=== PATIENT | female | born 1970 | race African-American/Black ===

== ENCOUNTER 2016-05-20 21:11 | Emergency (ER) | payer OTHER, SELFPAY ==
[~2016-05-20 21:11] MED LIST: /INSU7030; /ONDA4TA PO; /PANT40TA; ACET500C PO; BACITAB3 PO; CIPR500T89 PO; COLA50CA3 PO; DULCOLAX; FERR325T; FLAG500T PO; GLUCOSE TEST; HUMALOG SQ; HUMU70IN SC; HUMULIN; HUMULIN 70/30; IBUP80TA PO; INSULIN 70/30; INSULIN 70/30 SQ; INSUN SC; INSUNSD SC; INSUR SC; LANCMIS; LEVA500T PO; LISI2.5T; MAG400TA PO; MAGNESIUM OXIDE; METO10TA2; METO5TAB2; NEUTRAPHOS OR; NEUTSOL; NICO14PA EXT; NOVO70VL; NOVOINJ14 SC; NOVOLOG INSULIN; NOVOLOG100 MG/ML; OMEP10CASR PO; PERC5TAB PO; PHEN 25; PHENERGAN; PRIL20CA; PRIL40CA; PRIL40CA PO; PROM25TA PO; REGL10TA6 PO; SYRINS1CC SUBQ; TRAM50TA2; VITAPRTA PO; ZOFR8TAB
[2016-05-20 22:17] LABS: BASO % 0.4 % (0.0-1.0); EOS % 0.2 % (0.0-3.0); LARGE UNSTAINED CELL # 0.1 K/mm3 (0.0-0.4); LARGE UNSTAINED CELL % 1.6 % (0.0-4.0); LYMPH # 1.2 K/mm3 (1.5-4.5); LYMPH % 13.3 % (24.0-44.0); MEAN CORPUSCULAR HEMOGLOBIN 28.8 pg (27.0-33.0); MEAN CORPUSCULAR HGB CONC 33.4 g/dl (32.0-36.5); MEAN CORPUSCULAR VOLUME 86.4 fl (80.0-96.0); MONO # 0.7 K/mm3 (0.0-0.8); MONO % 7.5 % (0.0-5.0); NEUTROPHILS # 6.8 K/mm3 (1.8-7.7); PLATELET COUNT, AUTOMATED 350 k/mm3 (150-450); RED CELL DISTRIBUTION WIDTH 15.3 % (11.5-14.5); WHITE BLOOD COUNT 8.8 K/mm3 (4.0-10.0)
[2016-05-20] MEDS ORDERED: KETOROLAC 30 MG/ML VIAL (J1885) As Ordered ONE (22:20)
[2016-05-20] MEDS ORDERED: METOCLOPRAMIDE INJ 10MG/2ML VIAL (J2765) As Ordered ONE (22:20)
[2016-05-20 22:38] LABS: ALBUMIN 4.6 GM/DL (3.2-5.2); ALBUMIN/GLOBULIN RATIO 1.24 (1.00-1.93); BILIRUBIN,DIRECT 0.2 MG/DL (0.0-0.2); BILIRUBIN,TOTAL 0.9 MG/DL (0.2-1.0); CALCIUM LEVEL 10.5 MG/DL (8.5-10.1); CREATININE FOR GFR 1.59 MG/DL (0.55-1.02); GLOMERULAR FILTRATION RATE 45.7 (>58); POTASSIUM SERUM 3.9 MEQ/L (3.5-5.1); TOTAL PROTEIN 8.3 GM/DL (6.4-8.2)
[2016-05-20] MEDS ORDERED: HumuLIN R (REGULAR) INSULIN (NovoLIN R) **100U/ML** PER UNIT As Ordered ONE (23:30)
--- NOTE | 2016-05-21 00:36 | EDDOCDS ---
Physician Documentation [facility] Name: Alivia Parks Age: 45 yrs Sex: Female : 1970 Arrival Date: 05/20/2016 Time: 21:11 Bed 12 Private MD: Unknown, Family Dr Disposition: 05/20/16 23:50 Discharged to Home/Self Care. Impression: Hyperglycemia, unspecified, Vomiting. - Condition is Stable. - Medication Reconciliation, Local Pharmacy Hours, Work Release Form - 1 day form. - Follow up: Private Physician; When: Call to arrange an appointment; Reason: Recheck today's complaints. - Problem is an ongoing problem. - Symptoms have improved. Historical: - Home Meds: 1. Novolin N 100 unit/mL Sub-Q susp 6 unit twice a day 2. novolin R 4 unit twice a day - PMHx: Diabetes - IDDM: controlled; - Social history: No barriers to communication noted, The patient speaks fluent Argentine, Speaks appropriately for age, Smoking status: Patient uses tobacco products, current some day smoker. - Family history: No immediate family members are acutely ill. - : The pt / caregiver states he / she is not on anticoagulants. Unable to Verify Home Med List with the patient / caregiver. - Exposure Risk Screening:: None identified. 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 7 in. (170.18 cm) (R); Pain 7/10; 21:45 Pulse 91 MON; Pulse Ox 100% ; mv5 22:00 Pulse 105 MON; Pulse Ox 76% ; mv5 22:15 Pulse 76 MON; Pulse Ox 94% ; mv5 22:27 Pulse 74 MON; Pulse Ox 97% ; mv5 22:39 BP 123 / 66 (auto/); mv5 22:41 Pulse 88 MON; Pulse Ox 100% ; mv5 22:49 BP 104 / 66 (auto/); mv5 22:49 Pulse 88 MON; Resp 18; Pulse Ox 96% ; mv5 23:04 BP 97 / 64 (auto/); mv5 23:04 Pulse 90 MON; Resp 18; Pulse Ox 97% ; mv5 23:19 BP 108 / 72 (auto/); mv5 23:19 Pulse 82 MON; Resp 16; Pulse Ox 97% ; mv5 23:34 BP 104 / 70 (auto/); mv5 23:34 Pulse 82 MON; Resp 16; Pulse Ox 96% ; mv5 23:49 BP 109 / 74 (auto/); mv5 23:49 Pulse 92 MON; Pulse Ox 98% ; mv5 05/21 00:04 BP 97 / 67 (auto/); mv5 00:04 Pulse 96 MON; Pulse Ox 98% ; mv5 00:10 Temp 98.1(O); jmv 00:19 BP 137 / 83 (auto/); mv5 00:19 Pulse 86 MON; Pulse Ox 99% ; mv5 05/20 21:13 Body Mass Index 22.24 (64.41 kg, 170.18 cm) gr2 MDM: 05/20 21:35 ECG WITH READING ER PHYS+CARDIAG ordered. EDMS 21:37 Fingerstick Blood Sugar Ordered. EDMS 21:48 IV Saline Lock ordered. cs11 21:48 NS 0.9% 1000 ml IV at bolus once ordered. cs11 21:49 CBC with Diff Ordered. EDMS 21:49 MED Profile Ordered. EDMS 21:49 Liver Profile Ordered. EDMS 21:49 Amylase Ordered. EDMS 21:49 Lipase Ordered. EDMS 22:00 ketorolac 30 mg IVP once ordered. cs11 22:00 Metoclopramide 10 mg IV at 40 mg/hr once over 15 mins ordered. cs11 22:27 Fingerstick Blood Sugar Reviewed. cs11 22:27 CBC with Diff Reviewed. cs11 22:47 MED Profile Reviewed. cs11 22:47 Liver Profile Reviewed. cs11 22:47 Lipase Reviewed. cs11 22:47 Amylase Reviewed. cs11 22:48 Insulin Regular Human 8 units IVP once ordered. cs11 22:48 Accucheck ordered. cs11 22:50 Financial registration complete. [facility] 23:13 COUNTS INCLUDE 234 BEDS AT THE [facility] Payment Agreement was scanned into [email or web address] and attached to record. 05/21 00:08 Fingerstick Blood Sugar Ordered. EDMS Point of Care Testing: Blood Glucose: 00:04 Blood Glucose: 141 mg/dL; mv5 Ranges: Administered Medications: 05/20 21:55 Drug: NS 0.9% 1000 ml [sodium chloride 0.9 % intravenous solution] Route: IV; Rate: mv5 bolus; Site: right antecubital; 05/21 00:31 Follow up: IV Status: Completed infusion mv5 05/20 22:25 Drug: ketorolac 30 mg [ketorolac 30 mg/mL (1 mL) injection solution (1 mL)] Route: IVP; mv5 Site: right antecubital; 22:54 Follow up: Response: No Adverse Reaction mv5 22:25 Drug: Metoclopramide 10 mg [metoclopramide 5 mg/mL injection solution] Route: IV; Rate: mv5 40 mg/hr; Infused Over: 15 mins; Site: right antecubital; 22:54 Follow up: Response: No Adverse Reaction; IV Status: Completed infusion mv5 23:34 Drug: Insulin Regular Human 8 units [insulin regular human 100 unit/mL injection mv5 solution (0.08 mL)] {Co-Signature: ld5 (Tonia Moore RN).} Route: IVP; Site: right antecubital; 05/21 00:03 Follow up: Response: No Adverse Reaction mv5 Signatures: Dispatcher [employer] EDBenji Pop, TEDDY RN Fito Escalona DO DO cs11 Danii Mendez, Reg Reg ks16 Minerva Coffey RN RN mv5 Tonia Moore RN ld5 The chart was reviewed and I authenticate all verbal orders and agree with the evaluation and treatment provided.Attachments: 05/20 23:13 COUNTS INCLUDE 234 BEDS AT THE [facility] Payment Agreement ks16 MTDD
--- NOTE | 2016-05-21 00:36 | EDDOCDS ---
Nurse's Notes [facility] Name: Alivia Parks Age: 45 yrs Sex: Female : 1970 Arrival Date: 05/20/2016 Time: 21:11 Bed 12 Private MD: Unknown, Family Dr Diagnosis: Hyperglycemia, unspecified;Vomiting Presentation: 05/20 21:30 Presenting complaint: Patient states: feeling ill for 24 hrs vomiting chills finger cz stick on arrival here 228. Adult Sepsis Screening: The patient does not have new or worsening altered mentation. Patient's respiratory rate is less than 22. Systolic blood pressure is greater than 100. Patient has a qSOFA score of 0- Negative Sepsis Screen. Suicide/Homicide risk assessment- the patient denies having any suicidal and/or homicidal ideations and does not present with any other emotional, behavioral or mental health complaints. 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 Transition of care: patient was not received from another setting of care. 21:30 Acuity: RITU Level 3 cz 21:30 Method Of Arrival: Walkin/Carried/Asstd cz Triage Assessment: 21:32 General: Appears ill, Behavior is cooperative. HIV screening NA for this visit Offered cz previously. 21:49 Pain: Location: top of head, forehead, right mandaen, left mandaen, left frontal area, mv5 left side of forehead, left temporal area, right frontal area, right temporal area and right side of forehead Pain currently is 10 out of 10 on a pain scale. 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 Novolin N 100 unit/mL Sub-Q susp 6 unit twice a day 2. novolin R 4 unit twice a day - PMHx: Diabetes - IDDM: controlled; - Social history: No barriers to communication noted, The patient speaks fluent Khmer, Speaks appropriately for age, Smoking status: Patient uses tobacco products, current some day smoker. - Family history: No immediate family members are acutely ill. - : The pt / caregiver states he / she is not on anticoagulants. Unable to Verify Home Med List with the patient / caregiver. - Exposure Risk Screening:: None identified. Screenin:51 Screening information is obtained from the patient. Fall risk: No risks identified. mv5 Assistance ADL's: requires no assistance with activities of daily living. Abuse/DV Screen: The patient / caregiver reports he/she is: not in a situation that causes fear, pain or injury. Nutritional screening: No deficits noted. Advance Directives: There is no active DNR order. home support is adequate. Assessment: 21:51 General: Appears uncomfortable, well nourished, well groomed, Behavior is cooperative, mv5 pleasant. Pain: Location: top of head, forehead, right mandaen, left mandaen, left frontal area, left side of forehead, left temporal area, right frontal area, right temporal area and right side of forehead Pain currently is 10 out of 10 on a pain scale. Neurological: Level of Consciousness is awake, alert, Oriented to person, place, time, Moves all extremities. Speech is normal, Facial symmetry appears normal. Cardiovascular: Capillary refill < 3 seconds Heart tones S1 S2 present Pulses are all present. Rhythm is sinus tachycardia No ectopy. Respiratory: Airway is patent Respiratory effort is even, unlabored, Respiratory pattern is regular, symmetrical. GI: Abdomen is flat, Bowel sounds present X 4 quads. Abd is soft X 4 quads. Derm: Skin is normal, Skin temperature is warm. 22:26 General: Appears in no apparent distress, to be sleeping. Neurological: Oriented to mv5 person, place, time, Facial symmetry appears normal, Wakes easily to verbal stim.. Cardiovascular: Rhythm is sinus rhythm No ectopy. Respiratory: Airway is patent Respiratory effort is even, unlabored, Respiratory pattern is regular, symmetrical. Derm: Skin is normal, Skin temperature is warm. 23:36 General: Appears in no apparent distress, to be sleeping. Pt wakes easily to verbal mv5 stimuli. Reports improvement of headache, has no other complaints at this time. Meds given as ordered and pt updated re: plan of care.. Pain: Denies pain. Neurological: Level of Consciousness is awake, alert, Oriented to person, place, time, Moves all extremities. Speech is normal. Cardiovascular: Rhythm is sinus rhythm No ectopy. Respiratory: Airway is patent Respiratory effort is even, unlabored, Respiratory pattern is regular, symmetrical. Derm: Skin is normal, Skin temperature is warm. 05/21 00:26 General: Appears in no apparent distress, comfortable, Behavior is cooperative, mv5 pleasant. Pain: Denies pain. Neurological: Level of Consciousness is awake, alert, Oriented to person, place, time. Respiratory: Airway is patent Respiratory effort is even, unlabored, Respiratory pattern is regular, symmetrical. GI: No deficits noted. Derm: Skin is normal, Skin temperature is warm. Vital Signs: 05/20 21:13 BP 121 / 70; Pulse 112; Resp 18 S; Pulse Ox 100% on R/A; Weight 64.41 kg (R); Height 5 gr2 ft. 7 in. (170.18 cm) (R); Pain 7/10; 21:45 Pulse 91 MON; Pulse Ox 100% ; mv5 22:00 Pulse 105 MON; Pulse Ox 76% ; mv5 22:15 Pulse 76 MON; Pulse Ox 94% ; mv5 22:27 Pulse 74 MON; Pulse Ox 97% ; mv5 22:39 BP 123 / 66 (auto/); mv5 22:41 Pulse 88 MON; Pulse Ox 100% ; mv5 22:49 BP 104 / 66 (auto/); mv5 22:49 Pulse 88 MON; Resp 18; Pulse Ox 96% ; mv5 23:04 BP 97 / 64 (auto/); mv5 23:04 Pulse 90 MON; Resp 18; Pulse Ox 97% ; mv5 23:19 BP 108 / 72 (auto/); mv5 23:19 Pulse 82 MON; Resp 16; Pulse Ox 97% ; mv5 23:34 BP 104 / 70 (auto/); mv5 23:34 Pulse 82 MON; Resp 16; Pulse Ox 96% ; mv5 23:49 BP 109 / 74 (auto/); mv5 23:49 Pulse 92 MON; Pulse Ox 98% ; mv5 05/21 00:04 BP 97 / 67 (auto/); mv5 00:04 Pulse 96 MON; Pulse Ox 98% ; mv5 00:10 Temp 98.1(O); jmv 00:19 BP 137 / 83 (auto/); mv5 00:19 Pulse 86 MON; Pulse Ox 99% ; mv5 05/20 21:13 Body Mass Index 22.24 (64.41 kg, 170.18 cm) gr2 Vitals: 05/20 21:13 Log In Time: May 20, 2016 at 21:13. RN notified that patient meets Red Flag gr2 criteria. ED Course: 21:12 Patient visited by Che Abraham. gr2 21:12 Patient moved to Waiting gr2 21:13 Unknown, Family is Private Physician. gr2 21:17 Patient visited by Che Abraham. gr2 21:18 Minerva Coffey,RN is Primary Nurse. apr 21:18 Patient moved to 3 shimon 21:19 Fito Cruz DO is Attending Physician. cs11 21:19 Patient visited by Fito Cruz DO. cs11 21:32 Triage Initiated cz 21:44 Patient visited by Madai Doshi RN. ms18 21:44 EKG done. (by ED staff). Reviewed by Fito Cruz DO. ms18 21:51 The patient / caregiver is instructed regarding the plan of care and ED course. mv5 21:51 Placed in gown. Bed in low position. Call light in reach. Side rails up X2. Cardiac mv5 monitor on. Pulse ox on. NIBP on. 21:51 Inserted saline lock: 18 gauge in right antecubital area and blood collected. The mv5 patient tolerated the procedure well. 21:54 Lipase Sent. mv5 21:54 Amylase Sent. mv5 21:54 Liver Profile Sent. mv5 21:54 MED Profile Sent. mv5 21:55 CBC with Diff Sent. mv5 22:32 Patient moved to 12 apr 22:42 Patient visited by Brian Linares PCA. kb5 23:13 [facility] Payment Agreement was scanned into [employer] and attached to record. ks16 23:36 Patient visited by Minerva Coffey RN. mv5 23:49 Discontinued intact, bleeding controlled, pressure dressing applied, No mv5 redness/swelling at site. No procedures done that require assistance. 05/21 00:10 Patient visited by Jacky Tomas PCA. [email or web address] Administered Medications: 05/20 21:55 Drug: NS 0.9% 1000 ml [sodium chloride 0.9 % intravenous solution] Route: IV; Rate: mv5 bolus; Site: right antecubital; 05/21 00:31 Follow up: IV Status: Completed infusion 5 05/20 22:25 Drug: ketorolac 30 mg [ketorolac 30 mg/mL (1 mL) injection solution (1 mL)] Route: IVP; mv5 Site: right antecubital; 22:54 Follow up: Response: No Adverse Reaction mv5 22:25 Drug: Metoclopramide 10 mg [metoclopramide 5 mg/mL injection solution] Route: IV; Rate: mv5 40 mg/hr; Infused Over: 15 mins; Site: right antecubital; 22:54 Follow up: Response: No Adverse Reaction; IV Status: Completed infusion mv5 23:34 Drug: Insulin Regular Human 8 units [insulin regular human 100 unit/mL injection mv5 solution (0.08 mL)] {Co-Signature: ld5 (Tonia Moore RN).} Route: IVP; Site: right antecubital; 05/21 00:03 Follow up: Response: No Adverse Reaction mv5 Point of Care Testing: Blood Glucose: 00:04 Blood Glucose: 141 mg/dL; mv5 Ranges: Order Results: Lab Order: Fingerstick Blood Sugar; SPEC'M 05/20/16 21:29 Test: BEDSIDE GLUCOSE; Value: 228; Range: 70-105; Abnormal: Above high normal; Units: MG/DL; Status: F Lab Order: CBC with Diff; SPEC'M 05/20/16 21:43 Test: WHITE BLOOD COUNT; Value: 8.8; Range: 4.0-10.0; Units: K/mm3; Status: F Test: RED BLOOD COUNT; Value: 4.34; Range: 4.00-5.40; Units: M/mm3; Status: F Test: HEMOGLOBIN; Value: 12.5; Range: 12.0-16.0; Units: g/dl; Status: F Test: HEMATOCRIT; Value: 37.5; Range: 36.0-47.0; Units: %; Status: F Test: MEAN CORPUSCULAR VOLUME; Value: 86.4; Range: 80.0-96.0; Units: fl; Status: F Test: MEAN CORPUSCULAR HEMOGLOBIN; Value: 28.8; Range: 27.0-33.0; Units: pg; Status: F Test: MEAN CORPUSCULAR HGB CONC; Value: 33.4; Range: 32.0-36.5; Units: g/dl; Status: F Test: RED CELL DISTRIBUTION WIDTH; Value: 15.3; Range: 11.5-14.5; Abnormal: Above high normal; Units: %; Status: F Test: PLATELET COUNT, AUTOMATED; Value: 350; Range: 150-450; Units: k/mm3; Status: F Test: NEUTROPHILS %; Value: 77.0; Range: 36.0-66.0; Abnormal: Above high normal; Units: %; Status: F Test: LYMPH %; Value: 13.3; Range: 24.0-44.0; Abnormal: Below low normal; Units: %; Status: F Test: MONO %; Value: 7.5; Range: 0.0-5.0; Abnormal: Above high normal; Units: %; Status: F Test: EOS %; Value: 0.2; Range: 0.0-3.0; Units: %; Status: F Test: BASO %; Value: 0.4; Range: 0.0-1.0; Units: %; Status: F Test: LARGE UNSTAINED CELL %; Value: 1.6; Range: 0.0-4.0; Units: %; Status: F Test: NEUTROPHILS #; Value: 6.8; Range: 1.8-7.7; Units: K/mm3; Status: F Test: LYMPH #; Value: 1.2; Range: 1.5-4.5; Abnormal: Below low normal; Units: K/mm3; Status: F Test: MONO #; Value: 0.7; Range: 0.0-0.8; Units: K/mm3; Status: F Test: EOS #; Value: 0.0; Range: 0.0-0.50; Units: K/mm3; Status: F Test: BASO #; Value: 0.0; Range: 0.0-0.2; Units: K/mm3; Status: F Test: LARGE UNSTAINED CELL #; Value: 0.1; Range: 0.0-0.4; Units: K/mm3; Status: F Lab Order: MED Profile; SPEC'M 05/20/16 21:43 Test: GLUCOSE, FASTING; Value: 254; Range: 70-105; Abnormal: Above high normal; Units: MG/DL; Status: F Test: BLOOD UREA NITROGEN; Value: 36; Range: 7-18; Abnormal: Above high normal; Units: MG/DL; Status: F Test: CREATININE FOR GFR; Value: 1.59; Range: 0.55-1.02; Abnormal: Above high normal; Units: MG/DL; Status: F Test: GLOMERULAR FILTRATION RATE; Value: 45.7; Range: >58; Abnormal: Below low normal; Status: F Test: SODIUM LEVEL; Value: 140; Range: 136-145; Units: MEQ/L; Status: F Test: POTASSIUM SERUM; Value: 3.9; Range: 3.5-5.1; Units: MEQ/L; Status: F Test: CHLORIDE LEVEL; Value: 100; Range: 98-107; Units: MEQ/L; Status: F Test: CARBON DIOXIDE LEVEL; Value: 27; Range: 21-32; Units: MEQ/L; Status: F Test: ANION GAP; Value: 13; Range: 8-16; Units: MEQ/L; Status: F Test: CALCIUM LEVEL; Value: 10.5; Range: 8.5-10.1; Abnormal: Above high normal; Units: MG/DL; Status: F Test Note: ; Units are mL/min/1.73 m2 Chronic Kidney Disease Staging per NKF: Stage I & II GFR >=60 Normal to Mildly Decreased Stage III GFR 30-59 Moderately Decreased Stage IV GFR 15-29 Severely Decreased Stage V GFR <15 Very Little GFR Left ESRD GFR <15 on 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 OPERATOR ASSISTANT Lab Order: Liver Profile; VARUN'Delilah 05/20/16 21:43 Test: AST/SGOT; Value: 19; Range: 15-37; Units: U/L; Status: F Test: ALT/SGPT; Value: 25; Range: 12-78; Units: U/L; Status: F Test: ALKALINE PHOSPHATASE; Value: 81; Range: 45-117; Units: U/L; Status: F Test: BILIRUBIN,TOTAL; Value: 0.9; Range: 0.2-1.0; Units: MG/DL; Status: F Test: BILIRUBIN,DIRECT; Value: 0.2; Range: 0.0-0.2; Units: MG/DL; Status: F Test: TOTAL PROTEIN; Value: 8.3; Range: 6.4-8.2; Abnormal: Above high normal; Units: GM/DL; Status: F Test: ALBUMIN; Value: 4.6; Range: 3.2-5.2; Units: GM/DL; Status: F Test: ALBUMIN/GLOBULIN RATIO; Value: 1.24; Range: 1.00-1.93; Status: F Lab Order: Amylase; SPEC'M 05/20/16 21:43 Test: AMYLASE; Value: 38; Range: 25-115; Units: U/L; Status: F Lab Order: Lipase; SPEC'M 05/20/16 21:43 Test: LIPASE; Value: 67; Range: 73-393; Abnormal: Below low normal; Units: U/L; Status: F Lab Order: Fingerstick Blood Sugar; SPEC'M 05/21/16 00:02 Test: BEDSIDE GLUCOSE; Value: 141; Range: 70-105; Abnormal: Above high normal; Units: MG/DL; Status: F Outcome: 05/20 23:49 Discharge Assessment: Patient awake, alert and oriented x 3. No cognitive and/or mv5 functional deficits noted. Patient verbalized understanding of disposition instructions. patient administered narcotics - no. The following High Risk Discharge criteria are identified: None. Discharged to home ambulatory. Condition: stable. Discharge instructions given to patient, Demonstrated understanding of Pt was receptive of discharge instructions/ teaching. No special radiology studies were completed. Property sent home with patient. 23:50 Discharge ordered by Provider. cs11 05/21 00:34 Patient left the ED. mv5 Signatures: Briseida Olivia RN RN jan Zecher, Calvin, RN Brian Williamson, PATIENT SERVICES TECHNICIAN PATIENT SERVICES TECHNICIAN kb5 Fito Cruz, DO cs11 Che Abraham gr2 Madai Doshi RN RN ms18 Danii Mendez, Reg Reg ks16 Jacky Tomas, PATIENT SERVICES TECHNICIAN PATIENT SERVICES TECHNICIAN Minerva Chandra RN RN mv5 Tonia Moore RN ld5 MTDD
--- NOTE | 2016-05-21 08:56 | ECGEPIP ---
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
[2016-05-21] MEDS ORDERED: NOVOINJ14 SC (15:53)
--- NOTE | 2016-05-23 01:36 | EDDOCDS ---
Physician Documentation [facility] Name: Alivia Parks Age: 45 yrs Sex: Female : 1970 Arrival Date: 05/20/2016 Time: 21:11 Bed 12 Private MD: Unknown, Family Dr Disposition: 05/20/16 23:50 Discharged to Home/Self Care. Impression: Hyperglycemia, unspecified, Vomiting. - Condition is Stable. - Medication Reconciliation, Local Pharmacy Hours, Work Release Form - 1 day form. - Follow up: Private Physician; When: Call to arrange an appointment; Reason: Recheck today's complaints. - Problem is an ongoing problem. - Symptoms have improved. Historical: - Home Meds: 1. Novolin N 100 unit/mL Sub-Q susp 6 unit twice a day 2. novolin R 4 unit twice a day - PMHx: Diabetes - IDDM: controlled; - Social history: No barriers to communication noted, The patient speaks fluent [place], Speaks appropriately for age, Smoking status: Patient uses tobacco products, current some day smoker. - Family history: No immediate family members are acutely ill. - : The pt / caregiver states he / she is not on anticoagulants. Unable to Verify Home Med List with the patient / caregiver. - Exposure Risk Screening:: None identified. 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 7 in. (170.18 cm) (R); Pain 7/10; 21:45 Pulse 91 MON; Pulse Ox 100% ; mv5 22:00 Pulse 105 MON; Pulse Ox 76% ; mv5 22:15 Pulse 76 MON; Pulse Ox 94% ; mv5 22:27 Pulse 74 MON; Pulse Ox 97% ; mv5 22:39 BP 123 / 66 (auto/); mv5 22:41 Pulse 88 MON; Pulse Ox 100% ; mv5 22:49 BP 104 / 66 (auto/); mv5 22:49 Pulse 88 MON; Resp 18; Pulse Ox 96% ; mv5 23:04 BP 97 / 64 (auto/); mv5 23:04 Pulse 90 MON; Resp 18; Pulse Ox 97% ; mv5 23:19 BP 108 / 72 (auto/); mv5 23:19 Pulse 82 MON; Resp 16; Pulse Ox 97% ; mv5 23:34 BP 104 / 70 (auto/); mv5 23:34 Pulse 82 MON; Resp 16; Pulse Ox 96% ; mv5 23:49 BP 109 / 74 (auto/); mv5 23:49 Pulse 92 MON; Pulse Ox 98% ; mv5 05/21 00:04 BP 97 / 67 (auto/); mv5 00:04 Pulse 96 MON; Pulse Ox 98% ; mv5 00:10 Temp 98.1(O); jmv 00:19 BP 137 / 83 (auto/); mv5 00:19 Pulse 86 MON; Pulse Ox 99% ; mv5 05/20 21:13 Body Mass Index 22.24 (64.41 kg, 170.18 cm) gr2 MDM: 05/20 21:35 ECG WITH READING ER PHYS+CARDIAG ordered. EDMS 21:37 Fingerstick Blood Sugar Ordered. EDMS 21:48 IV Saline Lock ordered. cs11 21:48 NS 0.9% 1000 ml IV at bolus once ordered. cs11 21:49 CBC with Diff Ordered. EDMS 21:49 MED Profile Ordered. EDMS 21:49 Liver Profile Ordered. EDMS 21:49 Amylase Ordered. EDMS 21:49 Lipase Ordered. EDMS 22:00 ketorolac 30 mg IVP once ordered. cs11 22:00 Metoclopramide 10 mg IV at 40 mg/hr once over 15 mins ordered. cs11 22:27 Fingerstick Blood Sugar Reviewed. cs11 22:27 CBC with Diff Reviewed. cs11 22:47 MED Profile Reviewed. cs11 22:47 Liver Profile Reviewed. cs11 22:47 Lipase Reviewed. cs11 22:47 Amylase Reviewed. cs11 22:48 Insulin Regular Human 8 units IVP once ordered. cs11 22:48 Accucheck ordered. cs11 22:50 Financial registration complete. [facility] 23:13 [facility] Payment Agreement was scanned into [employer] and attached to record. [email or web address] 05/21 00:08 Fingerstick Blood Sugar Ordered. EDMS 09:38 T-Sheet-- Draft Copy was scanned into [employer] and attached to record. gb 09:38 ECG/EKG was scanned into [employer] and attached to record. gb Point of Care Testing: Blood Glucose: 00:04 Blood Glucose: 141 mg/dL; mv5 Ranges: Administered Medications: 05/20 21:55 Drug: NS 0.9% 1000 ml [sodium chloride 0.9 % intravenous solution] Route: IV; Rate: mv5 bolus; Site: right antecubital; 05/21 00:31 Follow up: IV Status: Completed infusion mv5 05/20 22:25 Drug: ketorolac 30 mg [ketorolac 30 mg/mL (1 mL) injection solution (1 mL)] Route: IVP; mv5 Site: right antecubital; 22:54 Follow up: Response: No Adverse Reaction mv5 22:25 Drug: Metoclopramide 10 mg [metoclopramide 5 mg/mL injection solution] Route: IV; Rate: mv5 40 mg/hr; Infused Over: 15 mins; Site: right antecubital; 22:54 Follow up: Response: No Adverse Reaction; IV Status: Completed infusion mv5 23:34 Drug: Insulin Regular Human 8 units [insulin regular human 100 unit/mL injection mv5 solution (0.08 mL)] {Co-Signature: [email or web address] (Tonia Moore RN).} Route: IVP; Site: right antecubital; 05/21 00:03 Follow up: Response: No Adverse Reaction mv5 Signatures: Dispatcher [employer] Benji Hillman, RN RN cz Chayito Montalvo, Reg Reg gb Fito Cruz, DO DO cs11 Danii Mendez, Reg Reg ks16 Minerva Coffey RN RN mv5 Tonia Moore RN ld5 The chart was reviewed and I authenticate all verbal orders and agree with the evaluation and treatment provided.Attachments: 05/20 23:13 [facility] Payment Agreement [email or web address] 05/21 09:38 T-Sheet-- Draft Copy 09:38 ECG/EKG Chart Complete MTDD
--- NOTE | 2016-05-23 01:36 | EDDOCDS ---
[facility] Name: Alivia Parks Age: 45 yrs Sex: Female : 1970 Arrival Date: 05/20/2016 Time: 21:11 Bed 12 Private MD: Unknown, Family Dr Disposition: 05/20/16 23:50 Discharged to Home/Self Care. Impression: Hyperglycemia, unspecified, Vomiting. - Condition is Stable. - Medication Reconciliation, Local Pharmacy Hours, Work Release Form - 1 day form. - Follow up: Private Physician; When: Call to arrange an appointment; Reason: Recheck today's complaints. - Problem is an ongoing problem. - Symptoms have improved. Historical: - Home Meds: 1. Novolin N 100 unit/mL Sub-Q susp 6 unit twice a day 2. novolin R 4 unit twice a day - PMHx: Diabetes - IDDM: controlled; - Social history: No barriers to communication noted, The patient speaks fluent Norwegian, Speaks appropriately for age, Smoking status: Patient uses tobacco products, current some day smoker. - Family history: No immediate family members are acutely ill. - : The pt / caregiver states he / she is not on anticoagulants. Unable to Verify Home Med List with the patient / caregiver. - Exposure Risk Screening:: None identified. 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 7 in. (170.18 cm) (R); Pain 7/10; 21:45 Pulse 91 MON; Pulse Ox 100% ; mv5 22:00 Pulse 105 MON; Pulse Ox 76% ; mv5 22:15 Pulse 76 MON; Pulse Ox 94% ; mv5 22:27 Pulse 74 MON; Pulse Ox 97% ; mv5 22:39 BP 123 / 66 (auto/); mv5 22:41 Pulse 88 MON; Pulse Ox 100% ; mv5 22:49 BP 104 / 66 (auto/); mv5 22:49 Pulse 88 MON; Resp 18; Pulse Ox 96% ; mv5 23:04 BP 97 / 64 (auto/); mv5 23:04 Pulse 90 MON; Resp 18; Pulse Ox 97% ; mv5 23:19 BP 108 / 72 (auto/); mv5 23:19 Pulse 82 MON; Resp 16; Pulse Ox 97% ; mv5 23:34 BP 104 / 70 (auto/); mv5 23:34 Pulse 82 MON; Resp 16; Pulse Ox 96% ; mv5 23:49 BP 109 / 74 (auto/); mv5 23:49 Pulse 92 MON; Pulse Ox 98% ; mv5 05/21 00:04 BP 97 / 67 (auto/); mv5 00:04 Pulse 96 MON; Pulse Ox 98% ; mv5 00:10 Temp 98.1(O); jmv 00:19 BP 137 / 83 (auto/); mv5 00:19 Pulse 86 MON; Pulse Ox 99% ; mv5 05/20 21:13 Body Mass Index 22.24 (64.41 kg, 170.18 cm) gr2 MDM: 05/20 21:35 ECG WITH READING ER PHYS+CARDIAG ordered. EDMS 21:37 Fingerstick Blood Sugar Ordered. EDMS 21:48 IV Saline Lock ordered. cs11 21:48 NS 0.9% 1000 ml IV at bolus once ordered. cs11 21:49 CBC with Diff Ordered. EDMS 21:49 MED Profile Ordered. EDMS 21:49 Liver Profile Ordered. EDMS 21:49 Amylase Ordered. EDMS 21:49 Lipase Ordered. EDMS 22:00 ketorolac 30 mg IVP once ordered. cs11 22:00 Metoclopramide 10 mg IV at 40 mg/hr once over 15 mins ordered. cs11 22:27 Fingerstick Blood Sugar Reviewed. cs11 22:27 CBC with Diff Reviewed. cs11 22:47 MED Profile Reviewed. cs11 22:47 Liver Profile Reviewed. cs11 22:47 Lipase Reviewed. cs11 22:47 Amylase Reviewed. cs11 22:48 Insulin Regular Human 8 units IVP once ordered. cs11 22:48 Accucheck ordered. cs11 22:50 Financial registration complete. [facility] 23:13 [facility] Payment Agreement was scanned into [email or web address] and attached to record. ks16 05/21 00:08 Fingerstick Blood Sugar Ordered. EDMS 09:38 T-Sheet-- Draft Copy was scanned into [email or web address] and attached to record. gb 09:38 ECG/EKG was scanned into [employer] and attached to record. gb Point of Care Testing: Blood Glucose: 00:04 Blood Glucose: 141 mg/dL; mv5 Ranges: Administered Medications: 05/20 21:55 Drug: NS 0.9% 1000 ml [sodium chloride 0.9 % intravenous solution] Route: IV; Rate: mv5 bolus; Site: right antecubital; 05/21 00:31 Follow up: IV Status: Completed infusion mv5 05/20 22:25 Drug: ketorolac 30 mg [ketorolac 30 mg/mL (1 mL) injection solution (1 mL)] Route: IVP; mv5 Site: right antecubital; 22:54 Follow up: Response: No Adverse Reaction mv5 22:25 Drug: Metoclopramide 10 mg [metoclopramide 5 mg/mL injection solution] Route: IV; Rate: mv5 40 mg/hr; Infused Over: 15 mins; Site: right antecubital; 22:54 Follow up: Response: No Adverse Reaction; IV Status: Completed infusion mv5 23:34 Drug: Insulin Regular Human 8 units [insulin regular human 100 unit/mL injection mv5 solution (0.08 mL)] {Co-Signature: ld5 (Tonia Moore RN).} Route: IVP; Site: right antecubital; 05/21 00:03 Follow up: Response: No Adverse Reaction mv5 Signatures: Dispatcher [employer] Benji Hillman, RN RN cz Chayito Montalvo, Reg Reg gb Fito Cruz, DO DO cs11 Danii Mendez, Reg Reg ks16 Minerva Coffey RN RN mv5 Tonia Moore RN ld5 The chart was reviewed and I authenticate all verbal orders and agree with the evaluation and treatment provided.Attachments: 05/20 23:13 [facility] Payment Agreement [email or web address] 05/21 09:38 T-Sheet-- Draft Copy 09:38 ECG/EKG Chart Complete MTDD
--- NOTE | 2016-05-23 01:36 | EDDOCDS ---
Nurse's Notes [facility] Name: Alivia Parks Age: 45 yrs Sex: Female : 1970 Arrival Date: 05/20/2016 Time: 21:11 Bed 12 Private MD: Unknown, Family Dr Diagnosis: Hyperglycemia, unspecified;Vomiting Presentation: 05/20 21:30 Presenting complaint: Patient states: feeling ill for 24 hrs vomiting chills finger cz stick on arrival here 228. Adult Sepsis Screening: The patient does not have new or worsening altered mentation. Patient's respiratory rate is less than 22. Systolic blood pressure is greater than 100. Patient has a qSOFA score of 0- Negative Sepsis Screen. Suicide/Homicide risk assessment- the patient denies having any suicidal and/or homicidal ideations and does not present with any other emotional, behavioral or mental health complaints. Status: Patient is not a lead customer service representative or dependent. Transition of care: patient was not received from another setting of care. 21:30 Acuity: RITU Level 3 cz 21:30 Method Of Arrival: Walkin/Carried/Asstd cz Triage Assessment: 21:32 General: Appears ill, Behavior is cooperative. HIV screening NA for this visit Offered cz previously. 21:49 Pain: Location: top of head, forehead, right yazdanism, left yazdanism, left frontal area, mv5 left side of forehead, left temporal area, right frontal area, right temporal area and right side of forehead Pain currently is 10 out of 10 on a pain scale. 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 Novolin N 100 unit/mL Sub-Q susp 6 unit twice a day 2. novolin R 4 unit twice a day - PMHx: Diabetes - IDDM: controlled; - Social history: No barriers to communication noted, The patient speaks fluent Kinyarwanda, Speaks appropriately for age, Smoking status: Patient uses tobacco products, current some day smoker. - Family history: No immediate family members are acutely ill. - : The pt / caregiver states he / she is not on anticoagulants. Unable to Verify Home Med List with the patient / caregiver. - Exposure Risk Screening:: None identified. Screenin:51 Screening information is obtained from the patient. Fall risk: No risks identified. mv5 Assistance ADL's: requires no assistance with activities of daily living. Abuse/DV Screen: The patient / caregiver reports he/she is: not in a situation that causes fear, pain or injury. Nutritional screening: No deficits noted. Advance Directives: There is no active DNR order. home support is adequate. Assessment: 21:51 General: Appears uncomfortable, well nourished, well groomed, Behavior is cooperative, mv5 pleasant. Pain: Location: top of head, forehead, right yazdanism, left yazdanism, left frontal area, left side of forehead, left temporal area, right frontal area, right temporal area and right side of forehead Pain currently is 10 out of 10 on a pain scale. Neurological: Level of Consciousness is awake, alert, Oriented to person, place, time, Moves all extremities. Speech is normal, Facial symmetry appears normal. Cardiovascular: Capillary refill < 3 seconds Heart tones S1 S2 present Pulses are all present. Rhythm is sinus tachycardia No ectopy. Respiratory: Airway is patent Respiratory effort is even, unlabored, Respiratory pattern is regular, symmetrical. GI: Abdomen is flat, Bowel sounds present X 4 quads. Abd is soft X 4 quads. Derm: Skin is normal, Skin temperature is warm. 22:26 General: Appears in no apparent distress, to be sleeping. Neurological: Oriented to mv5 person, place, time, Facial symmetry appears normal, Wakes easily to verbal stim.. Cardiovascular: Rhythm is sinus rhythm No ectopy. Respiratory: Airway is patent Respiratory effort is even, unlabored, Respiratory pattern is regular, symmetrical. Derm: Skin is normal, Skin temperature is warm. 23:36 General: Appears in no apparent distress, to be sleeping. Pt wakes easily to verbal mv5 stimuli. Reports improvement of headache, has no other complaints at this time. Meds given as ordered and pt updated re: plan of care.. Pain: Denies pain. Neurological: Level of Consciousness is awake, alert, Oriented to person, place, time, Moves all extremities. Speech is normal. Cardiovascular: Rhythm is sinus rhythm No ectopy. Respiratory: Airway is patent Respiratory effort is even, unlabored, Respiratory pattern is regular, symmetrical. Derm: Skin is normal, Skin temperature is warm. 05/21 00:26 General: Appears in no apparent distress, comfortable, Behavior is cooperative, mv5 pleasant. Pain: Denies pain. Neurological: Level of Consciousness is awake, alert, Oriented to person, place, time. Respiratory: Airway is patent Respiratory effort is even, unlabored, Respiratory pattern is regular, symmetrical. GI: No deficits noted. Derm: Skin is normal, Skin temperature is warm. Vital Signs: 05/20 21:13 BP 121 / 70; Pulse 112; Resp 18 S; Pulse Ox 100% on R/A; Weight 64.41 kg (R); Height 5 gr2 ft. 7 in. (170.18 cm) (R); Pain 7/10; 21:45 Pulse 91 MON; Pulse Ox 100% ; mv5 22:00 Pulse 105 MON; Pulse Ox 76% ; mv5 22:15 Pulse 76 MON; Pulse Ox 94% ; mv5 22:27 Pulse 74 MON; Pulse Ox 97% ; mv5 22:39 BP 123 / 66 (auto/); mv5 22:41 Pulse 88 MON; Pulse Ox 100% ; mv5 22:49 BP 104 / 66 (auto/); mv5 22:49 Pulse 88 MON; Resp 18; Pulse Ox 96% ; mv5 23:04 BP 97 / 64 (auto/); mv5 23:04 Pulse 90 MON; Resp 18; Pulse Ox 97% ; mv5 23:19 BP 108 / 72 (auto/); mv5 23:19 Pulse 82 MON; Resp 16; Pulse Ox 97% ; mv5 23:34 BP 104 / 70 (auto/); mv5 23:34 Pulse 82 MON; Resp 16; Pulse Ox 96% ; mv5 23:49 BP 109 / 74 (auto/); mv5 23:49 Pulse 92 MON; Pulse Ox 98% ; mv5 05/21 00:04 BP 97 / 67 (auto/); mv5 00:04 Pulse 96 MON; Pulse Ox 98% ; mv5 00:10 Temp 98.1(O); jmv 00:19 BP 137 / 83 (auto/); mv5 00:19 Pulse 86 MON; Pulse Ox 99% ; mv5 05/20 21:13 Body Mass Index 22.24 (64.41 kg, 170.18 cm) gr2 Vitals: 05/20 21:13 Log In Time: May 20, 2016 at 21:13. RN notified that patient meets Red Flag gr2 criteria. ED Course: 21:12 Patient visited by Che Abraham. gr2 21:12 Patient moved to Waiting gr2 21:13 Unknown, Family is Private Physician. gr2 21:17 Patient visited by Che Abraham. gr2 21:18 Minerva Coffey,RN is Primary Nurse. apr 21:18 Patient moved to 3 shimon 21:19 Kiana Zamarripa DO is Attending Physician. cs11 21:19 Patient visited by Kiana Zamarripa DO. cs11 21:32 Triage Initiated cz 21:44 Patient visited by Madai Doshi RN. ms18 21:44 EKG done. (by ED staff). Reviewed by Kiana Zamarripa DO. ms18 21:51 The patient / caregiver is instructed regarding the plan of care and ED course. mv5 21:51 Placed in gown. Bed in low position. Call light in reach. Side rails up X2. Cardiac mv5 monitor on. Pulse ox on. NIBP on. 21:51 Inserted saline lock: 18 gauge in right antecubital area and blood collected. The mv5 patient tolerated the procedure well. 21:54 Lipase Sent. mv5 21:54 Amylase Sent. mv5 21:54 Liver Profile Sent. mv5 21:54 MED Profile Sent. mv5 21:55 CBC with Diff Sent. mv5 22:32 Patient moved to 12 apr 22:42 Patient visited by Brian Linares PCA. kb5 23:13 [facility] Payment Agreement was scanned into [employer] and attached to record. ks16 23:36 Patient visited by Minerva Coffey,TEDDY. mv5 23:49 Discontinued intact, bleeding controlled, pressure dressing applied, No mv5 redness/swelling at site. No procedures done that require assistance. 05/21 00:10 Patient visited by Jcaky Tomas PCA. jmv 09:29 EKG-ADULT Returned. EDMS 09:38 T-Sheet-- Draft Copy was scanned into [employer] and attached to record. gb 09:38 ECG/EKG was scanned into [employer] and attached to record. gb Administered Medications: 05/20 21:55 Drug: NS 0.9% 1000 ml [sodium chloride 0.9 % intravenous solution] Route: IV; Rate: mv5 bolus; Site: right antecubital; 05/21 00:31 Follow up: IV Status: Completed infusion mv5 05/20 22:25 Drug: ketorolac 30 mg [ketorolac 30 mg/mL (1 mL) injection solution (1 mL)] Route: IVP; mv5 Site: right antecubital; 22:54 Follow up: Response: No Adverse Reaction mv5 22:25 Drug: Metoclopramide 10 mg [metoclopramide 5 mg/mL injection solution] Route: IV; Rate: mv5 40 mg/hr; Infused Over: 15 mins; Site: right antecubital; 22:54 Follow up: Response: No Adverse Reaction; IV Status: Completed infusion mv5 23:34 Drug: Insulin Regular Human 8 units [insulin regular human 100 unit/mL injection mv5 solution (0.08 mL)] {Co-Signature: ld5 (Tonia Moore RN).} Route: IVP; Site: right antecubital; 05/21 00:03 Follow up: Response: No Adverse Reaction mv5 Point of Care Testing: Blood Glucose: 00:04 Blood Glucose: 141 mg/dL; mv5 Ranges: Order Results: Lab Order: Fingerstick Blood Sugar; SPEC'M 05/20/16 21:29 Test: BEDSIDE GLUCOSE; Value: 228; Range: 70-105; Abnormal: Above high normal; Units: MG/DL; Status: F Lab Order: CBC with Diff; SPEC'M 05/20/16 21:43 Test: WHITE BLOOD COUNT; Value: 8.8; Range: 4.0-10.0; Units: K/mm3; Status: F Test: RED BLOOD COUNT; Value: 4.34; Range: 4.00-5.40; Units: M/mm3; Status: F Test: HEMOGLOBIN; Value: 12.5; Range: 12.0-16.0; Units: g/dl; Status: F Test: HEMATOCRIT; Value: 37.5; Range: 36.0-47.0; Units: %; Status: F Test: MEAN CORPUSCULAR VOLUME; Value: 86.4; Range: 80.0-96.0; Units: fl; Status: F Test: MEAN CORPUSCULAR HEMOGLOBIN; Value: 28.8; Range: 27.0-33.0; Units: pg; Status: F Test: MEAN CORPUSCULAR HGB CONC; Value: 33.4; Range: 32.0-36.5; Units: g/dl; Status: F Test: RED CELL DISTRIBUTION WIDTH; Value: 15.3; Range: 11.5-14.5; Abnormal: Above high normal; Units: %; Status: F Test: PLATELET COUNT, AUTOMATED; Value: 350; Range: 150-450; Units: k/mm3; Status: F Test: NEUTROPHILS %; Value: 77.0; Range: 36.0-66.0; Abnormal: Above high normal; Units: %; Status: F Test: LYMPH %; Value: 13.3; Range: 24.0-44.0; Abnormal: Below low normal; Units: %; Status: F Test: MONO %; Value: 7.5; Range: 0.0-5.0; Abnormal: Above high normal; Units: %; Status: F Test: EOS %; Value: 0.2; Range: 0.0-3.0; Units: %; Status: F Test: BASO %; Value: 0.4; Range: 0.0-1.0; Units: %; Status: F Test: LARGE UNSTAINED CELL %; Value: 1.6; Range: 0.0-4.0; Units: %; Status: F Test: NEUTROPHILS #; Value: 6.8; Range: 1.8-7.7; Units: K/mm3; Status: F Test: LYMPH #; Value: 1.2; Range: 1.5-4.5; Abnormal: Below low normal; Units: K/mm3; Status: F Test: MONO #; Value: 0.7; Range: 0.0-0.8; Units: K/mm3; Status: F Test: EOS #; Value: 0.0; Range: 0.0-0.50; Units: K/mm3; Status: F Test: BASO #; Value: 0.0; Range: 0.0-0.2; Units: K/mm3; Status: F Test: LARGE UNSTAINED CELL #; Value: 0.1; Range: 0.0-0.4; Units: K/mm3; Status: F Lab Order: MED Profile; SPEC'M 05/20/16 21:43 Test: GLUCOSE, FASTING; Value: 254; Range: 70-105; Abnormal: Above high normal; Units: MG/DL; Status: F Test: BLOOD UREA NITROGEN; Value: 36; Range: 7-18; Abnormal: Above high normal; Units: MG/DL; Status: F Test: CREATININE FOR GFR; Value: 1.59; Range: 0.55-1.02; Abnormal: Above high normal; Units: MG/DL; Status: F Test: GLOMERULAR FILTRATION RATE; Value: 45.7; Range: >58; Abnormal: Below low normal; Status: F Test: SODIUM LEVEL; Value: 140; Range: 136-145; Units: MEQ/L; Status: F Test: POTASSIUM SERUM; Value: 3.9; Range: 3.5-5.1; Units: MEQ/L; Status: F Test: CHLORIDE LEVEL; Value: 100; Range: 98-107; Units: MEQ/L; Status: F Test: CARBON DIOXIDE LEVEL; Value: 27; Range: 21-32; Units: MEQ/L; Status: F Test: ANION GAP; Value: 13; Range: 8-16; Units: MEQ/L; Status: F Test: CALCIUM LEVEL; Value: 10.5; Range: 8.5-10.1; Abnormal: Above high normal; Units: MG/DL; Status: F Test Note: ; Units are mL/min/1.73 m2 Chronic Kidney Disease Staging per NKF: Stage I & II GFR >=60 Normal to Mildly Decreased Stage III GFR 30-59 Moderately Decreased Stage IV GFR 15-29 Severely Decreased Stage V GFR <15 Very Little GFR Left ESRD GFR <15 on MUSIC WRITER Lab Order: Liver Profile; [facility] 05/20/16 21:43 Test: AST/SGOT; Value: 19; Range: 15-37; Units: U/L; Status: F Test: ALT/SGPT; Value: 25; Range: 12-78; Units: U/L; Status: F Test: ALKALINE PHOSPHATASE; Value: 81; Range: 45-117; Units: U/L; Status: F Test: BILIRUBIN,TOTAL; Value: 0.9; Range: 0.2-1.0; Units: MG/DL; Status: F Test: BILIRUBIN,DIRECT; Value: 0.2; Range: 0.0-0.2; Units: MG/DL; Status: F Test: TOTAL PROTEIN; Value: 8.3; Range: 6.4-8.2; Abnormal: Above high normal; Units: GM/DL; Status: F Test: ALBUMIN; Value: 4.6; Range: 3.2-5.2; Units: GM/DL; Status: F Test: ALBUMIN/GLOBULIN RATIO; Value: 1.24; Range: 1.00-1.93; Status: F Lab Order: Amylase; SPEC'M 05/20/16 21:43 Test: AMYLASE; Value: 38; Range: 25-115; Units: U/L; Status: F Lab Order: Lipase; SPEC'M 05/20/16 21:43 Test: LIPASE; Value: 67; Range: 73-393; Abnormal: Below low normal; Units: U/L; Status: F Lab Order: Fingerstick Blood Sugar; SPEC'M 05/21/16 00:02 Test: BEDSIDE GLUCOSE; Value: 141; Range: 70-105; Abnormal: Above high normal; Units: MG/DL; Status: F Radiology Order: EKG-ADULT Test: EKG-ADULT REASON FOR EXAMINATION: LOW BLOOD SUGAR; Stationary ECG Study; [facility] ED; ; Test Date: 2016-05-20; Pat Name: [facility] Department:; Room: -; 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 No cognitive and/or mv5 functional deficits noted. Patient verbalized understanding of disposition instructions. patient administered narcotics - no. The following High Risk Discharge criteria are identified: None. Discharged to home ambulatory. Condition: stable. Discharge instructions given to patient, Demonstrated understanding of Pt was receptive of discharge instructions/ teaching. No special radiology studies were completed. Property sent home with patient. 23:50 Discharge ordered by Provider. cs11 05/21 00:34 Patient left the ED. mv5 Signatures: Dispatcher [employer] LURDESPR Briseida Olivia, RN RN Benji Bledsoe, RN RN cz Chayito Montalvo, Reg Reg gb Vijay, Brian, JERSEY KNITTER JERSEY KNITTER kb5 Kiana Zamarripa, DO DO cs11 Che Abraham gr2 Madai Doshi,TEDDY RN ms18 Danii Mendez, Reg Reg ks16 Jacky Tomas, JERSEY KNITTER JERSEY KNITTER jmv Minerva Coffey RN RN mv5 Tonia Moore RN ld5 Chart Complete MTDD
== END 2016-05-21 00:34 | disposition home or self-care (01) ==
LOC: M ED 21:11
DX: E10.65 Type 1 diabetes mellitus with hyperglycemia (principal); R11.10 Vomiting, unspecified
CPT/HCPCS: 36415; 80048; 80076; 82150; 83690; 85025; 93005; 96361; 96365; 96375; 99285; J1885; J2765

== ENCOUNTER 2016-05-21 12:53 | Observation (INO) | payer OTHER ==
[2016-05-21] MEDS ORDERED: KETOROLAC 30 MG/ML VIAL (J1885) As Ordered ONE (14:32)
[2016-05-21] MEDS ORDERED: METOCLOPRAMIDE INJ 10MG/2ML VIAL (J2765) As Ordered ONE (14:32)
[2016-05-21 14:54] LABS: BASO % 0.4 % (0.0-1.0); EOS # 0.2 K/mm3 (0.0-0.50); EOS % 1.4 % (0.0-3.0); LARGE UNSTAINED CELL # 0.1 K/mm3 (0.0-0.4); LARGE UNSTAINED CELL % 0.7 % (0.0-4.0); LYMPH # 1.7 K/mm3 (1.5-4.5); LYMPH % 12.4 % (24.0-44.0); MEAN CORPUSCULAR HEMOGLOBIN 28.1 pg (27.0-33.0); MEAN CORPUSCULAR HGB CONC 31.9 g/dl (32.0-36.5); MEAN CORPUSCULAR VOLUME 87.9 fl (80.0-96.0); MONO # 0.6 K/mm3 (0.0-0.8); MONO % 4.3 % (0.0-5.0); NEUTROPHILS # 10.5 K/mm3 (1.8-7.7); NEUTROPHILS % 80.9 % (36.0-66.0); PLATELET COUNT, AUTOMATED 354 k/mm3 (150-450); RED CELL DISTRIBUTION WIDTH 15.4 % (11.5-14.5)
[2016-05-21] MEDS ORDERED: ONDANSETRON 4MG/2ML VIAL (J2405) As Ordered ONE (15:15)
[2016-05-21 15:17] LABS: ABG BASE EXCESS -2.5 (-2.0-2.0); ABG DEVICE NASAL CANN; ABG HCO3 17.2 MEQ/L (22.0-26.0); ABG STANDARD HCO3 22.4 MEQ/L (22.0-26.0); ABG TOTAL CO2 17.8 MEQ/L (22.0-29.0); ABG pH (ARTERIAL) 7.594 UNITS (7.350-7.450)
[2016-05-21 15:19] LABS: ABG PARTIAL PRESSURE CO2 18.2 mmHg (35.0-45.0)
[2016-05-21 15:20] LABS: ALBUMIN 4.3 GM/DL (3.2-5.2); ALBUMIN/GLOBULIN RATIO 1.13 (1.00-1.93); ALKALINE PHOSPHATASE 71 U/L (45-117); ALT/SGPT 25 U/L (12-78); AMYLASE 34 U/L (25-115); ANION GAP 13 MEQ/L (8-16); AST/SGOT 23 U/L (15-37); BILIRUBIN,DIRECT 0.3 MG/DL (0.0-0.2); BILIRUBIN,TOTAL 1.1 MG/DL (0.2-1.0); BLOOD UREA NITROGEN 40 MG/DL (7-18); CALCIUM LEVEL 9.8 MG/DL (8.5-10.1); CARBON DIOXIDE LEVEL 26 MEQ/L (21-32); CHLORIDE LEVEL 99 MEQ/L (98-107); CREATININE FOR GFR 1.61 MG/DL (0.55-1.02); GLOMERULAR FILTRATION RATE 45.1 (>58); GLUCOSE, FASTING 280 MG/DL (70-105); HCG, SERUM QUANTITATIVE < 1.0 MIU/ML; POTASSIUM SERUM 4.1 MEQ/L (3.5-5.1); SODIUM LEVEL 138 MEQ/L (136-145); TOTAL PROTEIN 8.1 GM/DL (6.4-8.2)
[2016-05-21] MEDS ORDERED: NOVOINJ14 SC (15:53)
[2016-05-21] MEDS ORDERED: HumuLIN R (REGULAR) INSULIN (NovoLIN R) **100U/ML** PER UNIT As Ordered ONE (16:10)
[2016-05-21] MEDS: NS 1,000 ML IV SCH (16:35)
[2016-05-21] MEDS ORDERED: ONDANSETRON 4MG/2ML VIAL (J2405) IV PRN (16:45)
[2016-05-21] MEDS ORDERED: METOCLOPRAMIDE INJ 10MG/2ML VIAL (J2765) IV PRN (16:45)
[2016-05-21] MEDS ORDERED: GLUCAGON FOR INJ 1 MG VIAL (J1610) SC PRN (16:45)
[2016-05-21] MEDS ORDERED: ACETAMINOPHEN TAB 650MG DOSE (2X325MG) PO PRN (16:45)
[2016-05-21] MEDS ORDERED: DEXTROSE 50% 50 ML SYRINGE IV PRN (16:45)
[2016-05-21] MEDS ORDERED: GLUCOSE 4 GM CHEW TABLET PO PRN (16:45)
--- NOTE | 2016-05-21 17:22 | HPE ---
DATE OF ADMISSION: 05/21/2016 PRIMARY CARE PROVIDER: Previously patient was seen by Dr. Carey. The patient moved to [place] and came back three weeks ago. Currently, the patient planned to have no primary care provider. HISTORY OF PRESENT ILLNESS: The patient is a 45-year-old female with a past medical history significant for type 1 diabetes who presented to [facility] on 05/20/2016 and 05/21/2016, for intractable nausea and vomiting. The patient stated since 05/20/2016, she has intractable nausea, vomiting, and headache. Nothing really helps her symptoms. She does not remember any specific triggers and on average she gets those symptoms once a year. Denies any recent sick contact. Denies any diarrhea. Denies any fevers or chills. She thinks it may be related to her diabetes. In the past two days, the patient has been having significant dry heaving, resulting in increased respiration rate. The patient was seen by Dr. Carey in the past and patient moved to [place] since last year and she recently moved back three weeks ago. At this moment, she stated that she does not have any primary care provider in [place]. In the emergency room, the patient's vital signs were within normal range except the respiration rate of 22. The patient was given two liters IV bolus. The patient was given Zofran, Reglan, and ketorolac IV and the patient's symptoms show improvement. The hospitalist team was called for admission. ALLERGIES: No known drug allergies. HOME MEDICATIONS: Novolin 70/30, approximately 8-10 units in the morning and 12 units in the evening. PAST MEDICAL HISTORY: Insulin-dependent diabetes. PAST SURGICAL HISTORY: None. SOCIAL HISTORY: Smokes half a pack daily for eight years. Drinks half a bottle of wine every two weeks. Denies any recreational drug use. REVIEW OF SYSTEMS: GENERAL: No fever. No chills. HEENT: No vision change. No auditory changes. CARDIOVASCULAR: No chest pain. No palpitations. RESPIRATORY: Increase respiration rate due to the increased dry heaving in the past two days. The patient denies any anxiety. GASTROINTESTINAL: Intractable nausea and vomiting since two days ago. No diarrhea. No stomach pain. MUSCULOSKELETAL: Denies any muscle pain or joint pain. OBJECTIVE: VITAL SIGNS: Blood pressure is 126/59, pulse is 96, respirations 22, temperature is 96.5, pulse oximetry is 99% on room air. Body weight is 64.4 kg. Body height is 170.18 cm. GENERAL: Fatigued. No sign of acute distress. Alert and oriented times three. HEENT: Normocephalic, atraumatic. Extraocular motor grossly intact. CARDIOVASCULAR: Positive S1, S2. Regular rate. LUNGS: Clear to auscultation bilaterally. ABDOMEN: Soft, nontender, nondistended. Bowel sounds present. No rebound. No guarding. EXTREMITIES: No edema. No cyanosis. No calf tenderness. NEUROLOGIC: Sensation to fine touch grossly intact. Muscle strength 5/5. LABORATORY DATA: WBC 13, hemoglobin is 11.5, hematocrit 36.1, platelet count is 354. Sodium is 138, potassium 4.1, chloride 99, carbon dioxide 26, BUN 40, creatinine 1.61, GFR is 45.1, fasting glucose 280, lactic acid 2.2, calcium is 9.8, total bilirubin 1.1, direct bilirubin 0.3, AST 23, ALT is 25, alkaline phosphatase 71, total CK is 139, total protein 8.1, albumin is 4.3. ABG showed a pH of 7.564, pCO2 is 18.2, pO2 is 128, HCO3 is 17.2. ASSESSMENT AND PLAN: 1. Acute kidney injury secondary intractable nausea and vomiting. The patient will be admitted to medical/surgical floor under observation status. The patient was given as-needed Zofran and Reglan. The patient got two liters of fluid bolus in the emergency department (ED). The patient will continue with normal saline at 100 mL per hour. After the IV Zofran and Reglan, the patient's nausea and vomiting has been controlled since. 2. Insulin-dependent diabetes. We will start the patient with Levemir 10 units subcutaneous and cover with sliding scale. Continue consistent-carbohydrate diet. 3. Respiratory alkalosis due to hyperventilating during the intractable nausea and vomiting episodes. Currently, the patient shows clinical improvement. The patient's respiratory rate returned to normal range. We will continue to monitor. 4. Leukocytosis. The patient has a white blood cell (WBC) count of 13, most likely secondary to physical stress. The patient does not have any signs suggestive of active infection. We will continue to monitor. 5. Deep vein thrombosis (DVT) prophylaxis. The patient will be on heparin.
[2016-05-21] MEDS ORDERED: HumaLOG INSULIN (NovoLOG) PER UNIT SC SCH (21:00)
[2016-05-21] MEDS ORDERED: LEVEMIR (INSULIN DETEMIR) 1 UNITS/0.01ML SC SCH (21:00)
[2016-05-21 22:09] VITALS: BP 125/72
[2016-05-21] MEDS ORDERED: PERCOCET 5MG/325MG TAB As Ordered ONE (22:14)
[2016-05-21] MEDS: PERCOCET 5MG/325MG TAB PO PRN (22:17)
[2016-05-21] MEDS ORDERED: HEPARIN SOD (PORCINE) 5000 UNITS/ML VIAL As Ordered ONE (22:46)
[2016-05-21] MEDS ORDERED: LEVEMIR (INSULIN DETEMIR) 1 UNITS/0.01ML As Ordered ONE (22:48)
[2016-05-21] MEDS: HEPARIN SOD (PORCINE) 5000 UNITS/ML VIAL SC SCH (22:52)
[2016-05-22] MEDS: NS 1,000 ML IV SCH ×2 (00:54→11:31)
--- NOTE | 2016-05-22 01:14 | EDDOCDS ---
Physician Documentation [facility] Name: Alivia Parks Age: 45 yrs Sex: Female : 1970 Arrival Date: 05/21/2016 Time: 12:53 Bed Admit Hold Private MD: NO PRIMARY PHYSICIAN, . Disposition: 05/21/16 15:49 Hospitalization ordered by Isabel Rodas for Inpatient Admission. Preliminary diagnosis are Alkalosis - pH 7.594, Nausea with vomiting, unspecified, Headache, Abnormal results of kidney function studies - worsening kidney functions. - Bed requested for 5 Garcia. - Status is Inpatient Admission. sls1 - Condition is Stable. - Problem is new. - Symptoms are unchanged. Historical: - Allergies: no known allergies; - Home Meds: 1. Novolin N 100 unit/mL Sub-Q susp 6 unit twice a day 2. novolin R 4 unit twice a day - PMHx: Diabetes - IDDM: controlled; - PSHx: none; - Social history: Smoking status: No barriers to communication noted, The patient speaks fluent Swedish, Speaks appropriately for age. - Family history: Not pertinent. - : The pt / caregiver states he / she is not on anticoagulants. Home medication list is obtained from the patient. - Exposure Risk Screening:: None identified. [employer]: 05/21 13:08 LMP 04/19/2016 mlb1 Vital Signs: 12:55 Resp 22; gr2 13:07 BP 126 / 59; Pulse 96; Temp 96.5(T); Pulse Ox 99% on R/A; Weight 64.41 kg / 142 lbs mlb1 (R); Height 5 ft. 7 in. (170.18 cm) (R); Pain 10/10; 21:27 BP 106 / 65; Pulse 72; Resp 16; Temp 97.2(O); Pulse Ox 100% on R/A; lr2 13:07 Body Mass Index 22.24 (64.41 kg, 170.18 cm) mlb1 12:55 PT WILL NOT LET HER VITALS TAKEN gr2 MDM: 13:40 Fingerstick Blood Sugar Ordered. EDMS 14:05 NS 0.9% 2000 ml IV at bolus once ordered. dt4 14:05 ketorolac 30 mg IVP once ordered. dt4 14:05 IV Saline Lock ordered. dt4 14:05 Undress patient appropriately for examination ordered. dt4 14:05 Metoclopramide 20 mg IV at 80 mg/hr once over 15 mins ordered. dt4 14:06 Amylase Ordered. EDMS 14:06 Basic Metabolic Profile Ordered. EDMS 14:06 CBC with Diff Ordered. EDMS 14:06 Lipase Ordered. EDMS 14:06 Liver Profile Ordered. EDMS 14:06 Urinalysis Ordered. EDMS 14:06 Lactic Acid (Osorio tube on ice) Ordered. EDMS 14:06 Urine Culture Ordered. EDMS 14:28 Financial registration complete. mm15 14:31 [facility] Payment Agreement was scanned into [employer] and attached to record. mm15 14:41 Call Respiratory ordered. dt4 14:44 -Arterial Blood Gas Ordered. EDMS 14:46 Call Respiratory complete. jmk 14:48 CREATINE PHOSPHOKINASE Ordered. EDMS 14:48 HCG, SERUM QUANTITATIVE Ordered. EDMS 15:12 Ondansetron 4 mg IVP once ordered. dt4 15:30 BED REQUEST+ADM ordered. EDMS 15:40 Fingerstick Blood Sugar Reviewed. dt4 15:40 Basic Metabolic Profile Reviewed. dt4 15:40 CBC with Diff Reviewed. dt4 15:40 Liver Profile Reviewed. dt4 15:40 Lactic Acid (Osorio tube on ice) Reviewed. dt4 15:40 -Arterial Blood Gas Reviewed. dt4 15:40 Amylase Reviewed. dt4 15:40 Lipase Reviewed. dt4 15:40 CREATINE PHOSPHOKINASE Reviewed. dt4 15:40 HCG, SERUM QUANTITATIVE Reviewed. dt4 15:44 Insulin Regular Human 5 units IVP once ordered. dt4 15:44 Accucheck hourly ordered. dt4 16:23 Fingerstick Blood Sugar Ordered. EDMS 16:43 Admission / Observation Status ordered. EDMS 16:44 CONSISTENT CARBOHYDRATES ordered. EDMS 16:50 HEMOGLOBIN A1C Ordered. EDMS 19:14 Fingerstick Blood Sugar Ordered. EDMS 22:39 Fingerstick Blood Sugar Ordered. EDMS Point of Care Testing: Blood Glucose: 19:08 Blood Glucose: 89 mg/dL; kas2 Ranges: Administered Medications: 14:40 Drug: NS 0.9% 2000 ml [sodium chloride 0.9 % intravenous solution] Route: IV; Rate: ead bolus; Site: left antecubital; 14:45 Drug: Metoclopramide 20 mg [metoclopramide 5 mg/mL injection solution] Route: IV; Rate: ead 80 mg/hr; Infused Over: 15 mins; Site: left antecubital; 15:32 Follow up: Response: Nausea is decreased; IV Status: Completed infusion [facility] 15:18 Drug: Ondansetron 4 mg [ondansetron HCl 2 mg/mL intravenous solution (2 mL)] Route: [facility] IVP; Site: left antecubital; 15:31 Follow up: Response: Nausea is decreased [facility] 15:46 Drug: ketorolac 30 mg [ketorolac 30 mg/mL (1 mL) injection solution (1 mL)] Route: IVP; [facility] Site: left antecubital; 16:15 Drug: Insulin Regular Human 5 units [insulin regular human 100 unit/mL injection [facility] solution (0.05 mL)] {Co-Signature: [id number] (Joseph Jackman RN).} Route: IVP; Site: left antecubital; Signatures: Dispatcher [employer] Celestino PottsRN TEDDY CODY, Eva RN Joseph Silvestre RN RN mlb1 Ginger Martinez RN RN sls1 Alda Guevara mm15 Jackie Jones PA-C PA-C dt4 Tk Radford RN, Emily RN ead Michael Belles RN [id number] The chart was reviewed and I authenticate all verbal orders and agree with the evaluation and treatment provided.Corrections: (The following items were deleted from the chart) 14:29 14:06 LAB URINE TEST+LAB ordered. EDNY EDMS 14:47 14:06 CREATINE PHOSPHOKINASE+LAB ordered. EDNY EDMS 14:47 14:27 HCG, SERUM QUANTITATIVE+LAB ordered. EDMS EDMS Attachments: 14:31 [facility] [place] Payment Agreement mm15 MTDD
--- NOTE | 2016-05-22 01:14 | EDDOCDS ---
Nurse's Notes [facility] Name: Ailvia Parks Age: 45 yrs Sex: Female : 1970 Arrival Date: 05/21/2016 Time: 12:53 Bed Admit Hold Private MD: NO PRIMARY PHYSICIAN, . Diagnosis: Alkalosis-pH 7.594;Nausea with vomiting, unspecified;Headache;Abnormal results of kidney function studies-worsening kidney functions Presentation: 05/21 12:59 Presenting complaint: Patient states: Headache nausea and vomiting began yesterday seen mlb1 here last night for same. Adult Sepsis Screening: The patient does not have new or worsening altered mentation. Patient's respiratory rate is less than 22. Systolic blood pressure is greater than 100. Patient has a qSOFA score of 0- Negative Sepsis Screen. Suicide/Homicide risk assessment- the patient denies having any suicidal and/or homicidal ideations and does not present with any other emotional, behavioral or mental health complaints. Status: Patient is not a room service supervisor or dependent. Transition of care: patient was not received from another setting of care. 12:59 Acuity: RITU Level 3 mlb1 12:59 Method Of Arrival: Walkin/Carried/Asstd mlb1 Triage Assessment: 13:01 General: Appears distressed, Behavior is agitated. Pain: Location: head Pain currently mlb1 is 15 out of 10 on a pain scale. HIV screening NA for this visit Offered previously. GI: Reports nausea, vomiting. INTENSIVE CARE UNIT REGISTERED NURSE: 13:08 LMP 04/19/2016 mlb1 Historical: - Allergies: no known allergies; - Home Meds: 1. Novolin N 100 unit/mL Sub-Q susp 6 unit twice a day 2. novolin R 4 unit twice a day - PMHx: Diabetes - IDDM: controlled; - PSHx: none; - Social history: Smoking status: No barriers to communication noted, The patient speaks fluent Telugu, Speaks appropriately for age. - Family history: Not pertinent. - : The pt / caregiver states he / she is not on anticoagulants. Home medication list is obtained from the patient. - Exposure Risk Screening:: None identified. Screenin:33 Screening information is obtained from the patient. Fall risk: No risks identified. jmk Assistance ADL's: requires no assistance with activities of daily living. Abuse/DV Screen: The patient / caregiver reports he/she is: not in a situation that causes fear, pain or injury. Nutritional screening: No deficits noted. Advance Directives: Currently, there is no health care proxy. There is no active DNR order. There is no living will. There is no Power of Architect In Training. home support is adequate. Assessment: 13:31 General: Appears skin warm and dry color satisfactory. resting quietly on stretcher. jmk Neurological: No deficits noted. Cardiovascular: No deficits noted. Respiratory: No deficits noted. GI: No deficits noted. Abdomen is flat, non- distended. 14:41 General: Appears dramatic presentation. hyperventilating. hands are tingling .coached jmk to slow breathing. Not receptive to instruction. No odor of acetone noted. provider aware. moaning and demanding pain meds. reports nausea . no vomiting noted.. 15:13 General: Appears in no apparent distress, Behavior is appropriate for age, cooperative, jmb Patient laying on stretcher, appears comfortable. Metoclopramide complete. Patient stated that she felt "so, so" when asked how her nausea was. Notified Jackie Chapin of patient's report. NO complaints voiced at this time. . Neurological: Level of Consciousness is awake, alert, obeys commands, Oriented to person, place, time, Speech is normal, Facial symmetry appears normal, Facial symmetry: tongue is midline. Respiratory: Airway is patent Respiratory effort is even, unlabored, Respiratory pattern is regular, symmetrical. 15:19 General: Received call from Shayna in lab whom stated that a blood gas was run on [facility] patient and the blood gas PCO2 was low. Shayan reports that her PCO2 was 18.2. Reported results to Jackie hCapin.. 15:23 General: Received phone call from Shayna in lab. Patient has abnormal lactic acid of jmb 2.2. Jackie Chapin notified. . 15:59 General: Appears 2nd liter of IV fluid is infused. presently resting with eyes closed, jmk resp easy and regular. 16:16 General: Appears . jmk 17:35 General: Appears in no apparent distress, Behavior is appropriate for age, cooperative. js13 Pain: Denies pain. Neurological: Level of Consciousness is awake, alert, obeys commands. Cardiovascular: No deficits noted. Respiratory: Airway is patent Respiratory effort is even, unlabored, Respiratory pattern is regular, symmetrical. GI: Abdomen is flat, non- distended Bowel sounds present X 4 quads. Abd is soft and non tender. Derm: Skin is normal. 18:35 General: Appears in no apparent distress, Behavior is appropriate for age, cooperative. js13 18:35 Pain: Denies pain. Neurological: Level of Consciousness is awake, alert, obeys js13 commands. Cardiovascular: No deficits noted. Respiratory: No deficits noted. Airway is patent Respiratory effort is even, unlabored, Respiratory pattern is regular, symmetrical. GI: Abdomen is flat, non- distended Bowel sounds present X 4 quads. Abd is soft and non tender. Derm: Skin is normal. 19:07 General: Verbal report given by Madison Yeung RN. Assumed care of patient at this time.. [facility] 19:09 General: Appears in no apparent distress, comfortable, Behavior is appropriate for age, kas2 cooperative. Pain: Denies pain. Neurological: No deficits noted. Level of Consciousness is awake, alert, obeys commands, Oriented to person, place, time. Cardiovascular: No deficits noted. Heart tones S1 S2 present Rhythm is regular. Respiratory: Airway is patent Respiratory effort is even, unlabored, Respiratory pattern is regular, symmetrical, Breath sounds are clear bilaterally. GI: Abdomen is flat, non- distended Bowel sounds present X 4 quads. Abd is soft and non tender X 4 quads. Derm: Skin is intact, Skin is dry, Skin temperature is warm. 19:31 General: Patient up in bed eating. No complaints of pain of discomfort. Appears kas2 comfortable. Call horton within reach. Will continue to monitor.. 21:14 General: Appears in no apparent distress, comfortable, Behavior is appropriate for age, kas2 cooperative. Pain: Denies pain. Neurological: Level of Consciousness is awake, alert, obeys commands, Oriented to person, place, time. Cardiovascular: Rhythm is regular. Respiratory: Airway is patent Respiratory effort is even, unlabored, Respiratory pattern is regular, symmetrical. Derm: Skin is intact, Skin is dry, Skin is Skin temperature is warm. 21:55 General: Verbal report given to Mary Martinez RN.. [facility] Vital Signs: 12:55 Resp 22; gr2 13:07 BP 126 / 59; Pulse 96; Temp 96.5(T); Pulse Ox 99% on R/A; Weight 64.41 kg (R); Height 5 mlb1 ft. 7 in. (170.18 cm) (R); Pain 10/10; 21:27 BP 106 / 65; Pulse 72; Resp 16; Temp 97.2(O); Pulse Ox 100% on R/A; lr2 13:07 Body Mass Index 22.24 (64.41 kg, 170.18 cm) mlb1 12:55 PT WILL NOT LET HER VITALS TAKEN gr2 Vitals: 12:55 Log In Time: May 21, 2016 at 12:55. RN notified that patient meets Red Flag gr2 criteria. ED Course: 12:55 Patient visited by Che Abraham. gr2 12:55 NO PRIMARY PHYSICIAN, . is Private Physician. gr2 12:55 Patient moved to Waiting gr2 12:58 Patient visited by Che Abraham. gr2 12:59 Patient visited by Joseph Ruiz RN. mlb1 13:00 Triage Initiated mlb1 13:01 Patient visited by Joseph Ruiz RN. mlb1 13:01 Patient moved to I mlb1 13:53 [facility] dt4 13:53 Kolton Abel MD is Attending Physician. dt4 13:53 Patient visited by Jackie Jones PA-C. dt4 14:31 [facility] Payment Agreement was scanned into [employer] and attached to record. mm15 14:36 Patient visited by Deb Martin RN. ead 14:41 The patient / caregiver is instructed regarding the plan of care and ED course. jmk 14:41 Inserted saline lock: 20 gauge in left antecubital area. jmk 14:45 Lactic Acid (Osorio tube on ice) Sent. jmk 14:46 Amylase Sent. jmk 14:46 Basic Metabolic Profile Sent. jmk 14:46 CBC with Diff Sent. jmk 14:46 Lipase Sent. jmk 14:46 Liver Profile Sent. jmk 15:02 -Arterial Blood Gas Sent. cs15 15:12 HCG, SERUM QUANTITATIVE Sent. jmk 15:12 CREATINE PHOSPHOKINASE Sent. jmk 15:15 Patient visited by Tk Radford RN. jmb 15:20 No procedures done that require assistance. js13 15:48 Isabel Rodas is Hospitalizing Provider. dt4 16:34 Christel Trivedi,RN is Primary Nurse. js13 16:34 Patient moved to 8 js13 16:49 Report given to Madison Trivedi RN. jmb 18:33 Patient visited by Christel Trivedi RN. js13 18:38 Patient visited by Christel Trivedi RN. js13 19:06 Mary DoshiRN is Primary Nurse. kas2 19:10 Patient visited by Mary Doshi RN. kas2 19:22 Primary Nurse role handed off by Christel Trivedi RN kb5 19:32 Patient visited by Mary Doshi RN. kas2 19:34 Patient moved to Admit Hold sls1 21:15 Patient visited by Mary Doshi RN. kas2 21:36 Patient visited by Mary Doshi RN. kas2 21:56 Patient visited by Mary Doshi RN. kas2 21:59 Patient moved to 21 sls1 21:59 Patient moved to Admit Hold [facility] Administered Medications: 14:40 Drug: NS 0.9% 2000 ml [sodium chloride 0.9 % intravenous solution] Route: IV; Rate: ead bolus; Site: left antecubital; 14:45 Drug: Metoclopramide 20 mg [metoclopramide 5 mg/mL injection solution] Route: IV; Rate: ead 80 mg/hr; Infused Over: 15 mins; Site: left antecubital; 15:32 Follow up: Response: Nausea is decreased; IV Status: Completed infusion [facility] 15:18 Drug: Ondansetron 4 mg [ondansetron HCl 2 mg/mL intravenous solution (2 mL)] Route: b IVP; Site: left antecubital; 15:31 Follow up: Response: Nausea is decreased [facility] 15:46 Drug: ketorolac 30 mg [ketorolac 30 mg/mL (1 mL) injection solution (1 mL)] Route: IVP; [facility] Site: left antecubital; 16:15 Drug: Insulin Regular Human 5 units [insulin regular human 100 unit/mL injection jmk solution (0.05 mL)] {Co-Signature: [id number] (Joseph Jackman RN).} Route: IVP; Site: left antecubital; Point of Care Testing: Blood Glucose: 19:08 Blood Glucose: 89 mg/dL; kas2 Ranges: RT: 15:02 ABG's drawn from right radial artery allens test done and positive pressure held for 5 cs15 minutes no bleeding noted pressure bandage applied specimen sent pt. tolerated well. 15:02 Oxygen is room air. cs15 Order Results: Lab Order: Fingerstick Blood Sugar; [facility]' 05/21/16 13:30 Test: BEDSIDE GLUCOSE; Value: 265; Range: 70-105; Abnormal: Above high normal; Units: MG/DL; Status: F Lab Order: Amylase; [facility]' 05/21/16 14:38 Test: AMYLASE; Value: 34; Range: 25-115; Units: U/L; Status: F Lab Order: Basic Metabolic Profile; [facility] 05/21/16 14:38 Test: GLUCOSE, FASTING; Value: 280; Range: 70-105; Abnormal: Above high normal; Units: MG/DL; Status: F Test: BLOOD UREA NITROGEN; Value: 40; Range: 7-18; Abnormal: Above high normal; Units: MG/DL; Status: F Test: CREATININE FOR GFR; Value: 1.61; Range: 0.55-1.02; Abnormal: Above high normal; Units: MG/DL; Status: F Test: GLOMERULAR FILTRATION RATE; Value: 45.1; Range: >58; Abnormal: Below low normal; Status: F Test: SODIUM LEVEL; Value: 138; Range: 136-145; Units: MEQ/L; Status: F Test: POTASSIUM SERUM; Value: 4.1; Range: 3.5-5.1; Units: MEQ/L; Status: F Test: CHLORIDE LEVEL; Value: 99; Range: 98-107; Units: MEQ/L; Status: F Test: CARBON DIOXIDE LEVEL; Value: 26; Range: 21-32; Units: MEQ/L; Status: F Test: ANION GAP; Value: 13; Range: 8-16; Units: MEQ/L; Status: F Test: CALCIUM LEVEL; Value: 9.8; Range: 8.5-10.1; Units: MG/DL; Status: F Test Note: ; Units are mL/min/1.73 m2 Chronic Kidney Disease Staging per NKF: Stage I & II GFR >=60 Normal to Mildly Decreased Stage III GFR 30-59 Moderately Decreased Stage IV GFR 15-29 Severely Decreased Stage V GFR <15 Very Little GFR Left ESRD GFR <15 on CREATIVE LEAD Lab Order: CBC with Diff; SPEC'[facility] 05/21/16 14:38 Test: WHITE BLOOD COUNT; Value: 13.0; Range: 4.0-10.0; Abnormal: Above high normal; Units: K/mm3; Status: F Test: RED BLOOD COUNT; Value: 4.11; Range: 4.00-5.40; Units: M/mm3; Status: F Test: HEMOGLOBIN; Value: 11.5; Range: 12.0-16.0; Abnormal: Below low normal; Units: g/dl; Status: F Test: HEMATOCRIT; Value: 36.1; Range: 36.0-47.0; Units: %; Status: F Test: MEAN CORPUSCULAR VOLUME; Value: 87.9; Range: 80.0-96.0; Units: fl; Status: F Test: MEAN CORPUSCULAR HEMOGLOBIN; Value: 28.1; Range: 27.0-33.0; Units: pg; Status: F Test: MEAN CORPUSCULAR HGB CONC; Value: 31.9; Range: 32.0-36.5; Abnormal: Below low normal; Units: g/dl; Status: F Test: RED CELL DISTRIBUTION WIDTH; Value: 15.4; Range: 11.5-14.5; Abnormal: Above high normal; Units: %; Status: F Test: PLATELET COUNT, AUTOMATED; Value: 354; Range: 150-450; Units: k/mm3; Status: F Test: NEUTROPHILS %; Value: 80.9; Range: 36.0-66.0; Abnormal: Above high normal; Units: %; Status: F Test: LYMPH %; Value: 12.4; Range: 24.0-44.0; Abnormal: Below low normal; Units: %; Status: F Test: MONO %; Value: 4.3; Range: 0.0-5.0; Units: %; Status: F Test: EOS %; Value: 1.4; Range: 0.0-3.0; Units: %; Status: F Test: BASO %; Value: 0.4; Range: 0.0-1.0; Units: %; Status: F Test: LARGE UNSTAINED CELL %; Value: 0.7; Range: 0.0-4.0; Units: %; Status: F Test: NEUTROPHILS #; Value: 10.5; Range: 1.8-7.7; Abnormal: Above high normal; Units: K/mm3; Status: F Test: LYMPH #; Value: 1.7; Range: 1.5-4.5; Units: K/mm3; Status: F Test: MONO #; Value: 0.6; Range: 0.0-0.8; Units: K/mm3; Status: F Test: EOS #; Value: 0.2; Range: 0.0-0.50; Units: K/mm3; Status: F Test: BASO #; Value: 0.0; Range: 0.0-0.2; Units: K/mm3; Status: F Test: LARGE UNSTAINED CELL #; Value: 0.1; Range: 0.0-0.4; Units: K/mm3; Status: F Lab Order: Lipase; [facility]' 05/21/16 14:38 Test: LIPASE; Value: 112; Range: 73-393; Units: U/L; Status: F Lab Order: Liver Profile; [facility]' 05/21/16 14:38 Test: AST/SGOT; Value: 23; Range: 15-37; Units: U/L; Status: F Test: ALT/SGPT; Value: 25; Range: 12-78; Units: U/L; Status: F Test: ALKALINE PHOSPHATASE; Value: 71; Range: 45-117; Units: U/L; Status: F Test: BILIRUBIN,TOTAL; Value: 1.1; Range: 0.2-1.0; Abnormal: Above high normal; Units: MG/DL; Status: F Test: BILIRUBIN,DIRECT; Value: 0.3; Range: 0.0-0.2; Abnormal: Above high normal; Units: MG/DL; Status: F Test: TOTAL PROTEIN; Value: 8.1; Range: 6.4-8.2; Units: GM/DL; Status: F Test: ALBUMIN; Value: 4.3; Range: 3.2-5.2; Units: GM/DL; Status: F Test: ALBUMIN/GLOBULIN RATIO; Value: 1.13; Range: 1.00-1.93; Status: F Lab Order: Lactic Acid (Osorio tube on ice); [facility] 05/21/16 14:38 Test: LACTIC ACID SEPSIS PROTOCOL; Value: 2.2; Range: 0.4-2.0; Abnormal: Above upper panic limits; Units: MMOL/L; Status: F Lab Order: -Arterial Blood Gas; [facility] 05/21/16 15:00 Test: ABG pH (ARTERIAL); Value: 7.594; Range: 7.350-7.450; Abnormal: Above high normal; Units: UNITS; Status: F Test: ABG PARTIAL PRESSURE CO2; Value: 18.2; Range: 35.0-45.0; Abnormal: Critical Low; Units: mmHg; Status: F Test: ABG PARTIAL PRESSURE O2; Value: 128.0; Range: 75.0-100.0; Abnormal: Above high normal; Units: mmHg; Status: F Test: ABG TOTAL CO2; Value: 17.8; Range: 22.0-29.0; Abnormal: Below low normal; Units: MEQ/L; Status: F Test: ABG HCO3; Value: 17.2; Range: 22.0-26.0; Abnormal: Below low normal; Units: MEQ/L; Status: F Test: ABG BASE EXCESS; Value: -2.5; Range: -2.0-2.0; Abnormal: Below low normal; Status: F Test: ABG STANDARD HCO3; Value: 22.4; Range: 22.0-26.0; Units: MEQ/L; Status: F Test: ABG O2 SATURATION; Value: 98.9; Range: 95.0-99.0; Units: %; Status: F Test: ABG DEVICE; Value: NASAL BENITA; Status: F Lab Order: CREATINE PHOSPHOKINASE; [facility] 05/21/16 14:38 Test: CPK CREATINE PHOSPHOKINASE; Value: 139; Range: 26-192; Units: U/L; Status: F Lab Order: HCG, SERUM QUANTITATIVE; [facility] 05/21/16 14:38 Test: HCG, SERUM QUANTITATIVE; Value: < 1.0; Units: MIU/ML; Status: F Test Note: ; GESTATIONAL AGE APPROXIMATE HCG RANGE (MIU/ML) 0.2-1 WEEK 5-50 1-2 WEEKS 50-500 2-3 WEEKS 100-5,000 3-4 WEEKS 500-10,000 4-5 WEEKS 1,000-50,000 5-6 WEEKS 10,000-100,000 6-8 WEEKS 15,000-200,000 2-3 MONTHS 10,000-100,000 NON FEMALES LESS THAN 3.0 Patient samples may contain human heterophilic antibodies that could react with immunoassays to give falsely elevated or depressed results. This assay has been designed to minimize interference from heterophilic antibodies. Elevated hCG levels have also been associated with trophoblastic disease and nontrophoblastic neoplasms. The possibility of having these diseases should be considered before a diagnosis of is made. This test is not intended for use as a surrogate marker for aiding in the diagnosis or monitoring the treatment of cancer patients. [employer] methodology. Lab Order: Fingerstick Blood Sugar; [facility] 05/21/16 16:13 Test: BEDSIDE GLUCOSE; Value: 242; Range: 70-105; Abnormal: Above high normal; Units: MG/DL; Status: F Lab Order: HEMOGLOBIN A1C; [facility] 05/21/16 14:38 Test: HEMOGLOBIN A1c; Value: 10.4; Range: 4.5-6.2; Abnormal: Above high normal; Units: %; Status: F Test: ESTIMATED AVERAGE GLUCOSE; Value: 252; Range: 60-110; Abnormal: Above high normal; Units: MG/DL; Status: F Lab Order: Fingerstick Blood Sugar; [facility] 05/21/16 19:05 Test: BEDSIDE GLUCOSE; Value: 89; Range: 70-105; Units: MG/DL; Status: F Lab Order: Fingerstick Blood Sugar; [facility] 05/21/16 22:30 Test: BEDSIDE GLUCOSE; Value: 232; Range: 70-105; Abnormal: Above high normal; Units: MG/DL; Status: F Outcome: 15:49 Decision to Hospitalize by Provider. dt4 05/22 01:13 Discharge Assessment: patient administered narcotics - no. The following High Risk [facility] Discharge criteria are identified: None. Admitted to Med/Surg accompanied by nurse, accompanied by tech, via stretcher, with chart. Condition: stable. CT Study completed. Property :Personal belongings accompany Pt. 01:13 Patient left the ED. sls1 Signatures: Celestino Phan,RN RN k Joseph Ruiz, RN RN mlb1 Vijay, Brian, MAINTENANCE TRAINER MAINTENANCE TRAINER kb5 Ginger Martinez, RN RN sls1 Christel Trivedi,RN RN js13 Che Abraham gr2 Alda Guevara mm15 Tk Radford,RN RN rajinderb Deb Martin,RN RN Jackie Catherine, PA-C PA-C dt4 Edson Camacho,RT RT cs15 Mary Doshi,RN RN radha2 Tonia Spangler lr2 Joseph Jackman RN mb9 Corrections: (The following items were deleted from the chart) 05/21 14:47 14:45 HCG, SERUM QUANTITATIVE+LAB sent. [facility] 14:47 14:45 CREATINE PHOSPHOKINASE+LAB sent. [facility] 18:37 15:20 General: Appears in no apparent distress, Behavior is appropriate for age, js13 cooperative, [facility] 18:37 15:20 Pain: Denies pain. [address] 18:37 15:20 Neurological: Level of Consciousness is awake, alert, obeys commands, [address] 18:37 15:20 Cardiovascular: No deficits noted. [address] 18:37 15:20 Respiratory: Airway is patent Respiratory effort is even, unlabored, Respiratory 13 pattern is regular, symmetrical, js13 18:37 15:20 GI: Abdomen is flat, non- distended Bowel sounds present X 4 quads. Abd is soft js13 and non tender 13 18:37 15:20 Derm: Skin is normal, [address] 18:38 18:35 General: Appears in no apparent distress, js13 js13 MTDD
[2016-05-22 01:25] VITALS: BP 109/73
[2016-05-22] MEDS: HEPARIN SOD (PORCINE) 5000 UNITS/ML VIAL SC SCH ×2 (05:39→14:11)
[2016-05-22] MEDS: PERCOCET 5MG/325MG TAB PO PRN (05:39)
[2016-05-22 06:00] VITALS: BP 105/68
[2016-05-22] MEDS: HumaLOG INSULIN (NovoLOG) PER UNIT SC SCH ×2 (06:33→12:31)
--- NOTE | 2016-05-24 02:14 | EDDOCDS ---
Physician Documentation [facility] Name: Alivia Parks Age: 45 yrs Sex: Female : 1970 Arrival Date: 05/21/2016 Time: 12:53 Bed Admit Hold Private MD: NO PRIMARY PHYSICIAN, . Disposition: 05/21/16 15:49 Hospitalization ordered by Isabel Rodas for Inpatient Admission. Preliminary diagnosis are Alkalosis - pH 7.594, Nausea with vomiting, unspecified, Headache, Abnormal results of kidney function studies - worsening kidney functions. - Bed requested for 5 Garcia. - Status is Inpatient Admission. sls1 - Condition is Stable. - Problem is new. - Symptoms are unchanged. Historical: - Allergies: no known allergies; - Home Meds: 1. Novolin N 100 unit/mL Sub-Q susp 6 unit twice a day 2. novolin R 4 unit twice a day - PMHx: Diabetes - IDDM: controlled; - PSHx: none; - Social history: Smoking status: No barriers to communication noted, The patient speaks fluent Maltese, Speaks appropriately for age. - Family history: Not pertinent. - : The pt / caregiver states he / she is not on anticoagulants. Home medication list is obtained from the patient. - Exposure Risk Screening:: None identified. 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 7 in. (170.18 cm) (R); Pain 10/10; 21:27 BP 106 / 65; Pulse 72; Resp 16; Temp 97.2(O); Pulse Ox 100% on R/A; lr2 13:07 Body Mass Index 22.24 (64.41 kg, 170.18 cm) mlb1 12:55 PT WILL NOT LET HER VITALS TAKEN gr2 MDM: 13:40 Fingerstick Blood Sugar Ordered. EDMS 14:05 NS 0.9% 2000 ml IV at bolus once ordered. dt4 14:05 ketorolac 30 mg IVP once ordered. dt4 14:05 IV Saline Lock ordered. dt4 14:05 Undress patient appropriately for examination ordered. dt4 14:05 Metoclopramide 20 mg IV at 80 mg/hr once over 15 mins ordered. dt4 14:06 Amylase Ordered. EDMS 14:06 Basic Metabolic Profile Ordered. EDMS 14:06 CBC with Diff Ordered. EDMS 14:06 Lipase Ordered. EDMS 14:06 Liver Profile Ordered. EDMS 14:06 Urinalysis Ordered. EDMS 14:06 Lactic Acid (Osorio tube on ice) Ordered. EDMS 14:06 Urine Culture Ordered. EDMS 14:28 Financial registration complete. mm15 14:31 [facility] Payment Agreement was scanned into [employer] and attached to record. mm15 14:41 Call Respiratory ordered. dt4 14:44 -Arterial Blood Gas Ordered. EDMS 14:46 Call Respiratory complete. jmk 14:48 CREATINE PHOSPHOKINASE Ordered. EDMS 14:48 HCG, SERUM QUANTITATIVE Ordered. EDMS 15:12 Ondansetron 4 mg IVP once ordered. dt4 15:30 BED REQUEST+ADM ordered. EDMS 15:40 Fingerstick Blood Sugar Reviewed. dt4 15:40 Basic Metabolic Profile Reviewed. dt4 15:40 CBC with Diff Reviewed. dt4 15:40 Liver Profile Reviewed. dt4 15:40 Lactic Acid (Osorio tube on ice) Reviewed. dt4 15:40 -Arterial Blood Gas Reviewed. dt4 15:40 Amylase Reviewed. dt4 15:40 Lipase Reviewed. dt4 15:40 CREATINE PHOSPHOKINASE Reviewed. dt4 15:40 HCG, SERUM QUANTITATIVE Reviewed. dt4 15:44 Insulin Regular Human 5 units IVP once ordered. dt4 15:44 Accucheck hourly ordered. dt4 16:23 Fingerstick Blood Sugar Ordered. EDMS 16:43 Admission / Observation Status ordered. EDMS 16:44 CONSISTENT CARBOHYDRATES ordered. EDMS 16:50 HEMOGLOBIN A1C Ordered. EDMS 19:14 Fingerstick Blood Sugar Ordered. EDMS 22:39 Fingerstick Blood Sugar Ordered. EDMS 05/22 10:07 T-Sheet-- Draft Copy was scanned into [employer] and attached to record. Point of Care Testing: Blood Glucose: 05/21 19:08 Blood Glucose: 89 mg/dL; kas2 Ranges: Administered Medications: 14:40 Drug: NS 0.9% 2000 ml [sodium chloride 0.9 % intravenous solution] Route: IV; Rate: ead bolus; Site: left antecubital; 14:45 Drug: Metoclopramide 20 mg [metoclopramide 5 mg/mL injection solution] Route: IV; Rate: ead 80 mg/hr; Infused Over: 15 mins; Site: left antecubital; 15:32 Follow up: Response: Nausea is decreased; IV Status: Completed infusion [facility] 15:18 Drug: Ondansetron 4 mg [ondansetron HCl 2 mg/mL intravenous solution (2 mL)] Route: [facility] IVP; Site: left antecubital; 15:31 Follow up: Response: Nausea is decreased [facility] 15:46 Drug: ketorolac 30 mg [ketorolac 30 mg/mL (1 mL) injection solution (1 mL)] Route: IVP; [facility] Site: left antecubital; 16:15 Drug: Insulin Regular Human 5 units [insulin regular human 100 unit/mL injection jmk solution (0.05 mL)] {Co-Signature: [id number] (Joseph Jackman RN).} Route: IVP; Site: left antecubital; Signatures: Dispatcher [employer] EDCelestino Love,RN TEDDY calvillok Yesenia CODY, Eva RN Chayito Vinson, Reg Reg Joseph Fernandez RN RN mlb1 Ginger Martinez RN RN sls1 Alda Guevara mm15 Jackie Jones, PA-C PA-C dt4 Tk Radford RN, Emily RN ead Michael Belles RN mb9 The chart was reviewed and I authenticate all verbal orders and agree with the evaluation and treatment provided.Corrections: (The following items were deleted from the chart) 14:29 14:06 LAB URINE TEST+LAB ordered. EDMS EDMS 14:47 14:06 CREATINE PHOSPHOKINASE+LAB ordered. EDMS EDMS 14:47 14:27 HCG, SERUM QUANTITATIVE+LAB ordered. [facility] EDMS Attachments: 14:31 [facility] Payment Agreement mm15 05/22 10:07 T-Sheet-- Draft Copy gb Chart Complete MTDD
--- NOTE | 2016-05-24 02:14 | EDDOCDS ---
Physician Documentation [facility] Name: Alivia Parks Age: 45 yrs Sex: Female : 1970 Arrival Date: 05/21/2016 Time: 12:53 Bed Admit Hold Private MD: NO PRIMARY PHYSICIAN, . Disposition: 05/21/16 15:49 Hospitalization ordered by Isabel Rodas for Inpatient Admission. Preliminary diagnosis are Alkalosis - pH 7.594, Nausea with vomiting, unspecified, Headache, Abnormal results of kidney function studies - worsening kidney functions. - Bed requested for 5 Garcia. - Status is Inpatient Admission. sls1 - Condition is Stable. - Problem is new. - Symptoms are unchanged. Historical: - Allergies: no known allergies; - Home Meds: 1. Novolin N 100 unit/mL Sub-Q susp 6 unit twice a day 2. novolin R 4 unit twice a day - PMHx: Diabetes - IDDM: controlled; - PSHx: none; - Social history: Smoking status: No barriers to communication noted, The patient speaks fluent Kinyarwanda, Speaks appropriately for age. - Family history: Not pertinent. - : The pt / caregiver states he / she is not on anticoagulants. Home medication list is obtained from the patient. - Exposure Risk Screening:: None identified. 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 7 in. (170.18 cm) (R); Pain 10/10; 21:27 BP 106 / 65; Pulse 72; Resp 16; Temp 97.2(O); Pulse Ox 100% on R/A; lr2 13:07 Body Mass Index 22.24 (64.41 kg, 170.18 cm) mlb1 12:55 PT WILL NOT LET HER VITALS TAKEN gr2 MDM: 13:40 Fingerstick Blood Sugar Ordered. EDMS 14:05 NS 0.9% 2000 ml IV at bolus once ordered. dt4 14:05 ketorolac 30 mg IVP once ordered. dt4 14:05 IV Saline Lock ordered. dt4 14:05 Undress patient appropriately for examination ordered. dt4 14:05 Metoclopramide 20 mg IV at 80 mg/hr once over 15 mins ordered. dt4 14:06 Amylase Ordered. EDMS 14:06 Basic Metabolic Profile Ordered. EDMS 14:06 CBC with Diff Ordered. EDMS 14:06 Lipase Ordered. EDMS 14:06 Liver Profile Ordered. EDMS 14:06 Urinalysis Ordered. EDMS 14:06 Lactic Acid (Osorio tube on ice) Ordered. EDMS 14:06 Urine Culture Ordered. EDMS 14:28 Financial registration complete. mm15 14:31 [facility] Payment Agreement was scanned into [employer] and attached to record. mm15 14:41 Call Respiratory ordered. dt4 14:44 -Arterial Blood Gas Ordered. EDMS 14:46 Call Respiratory complete. jmk 14:48 CREATINE PHOSPHOKINASE Ordered. EDMS 14:48 HCG, SERUM QUANTITATIVE Ordered. EDMS 15:12 Ondansetron 4 mg IVP once ordered. dt4 15:30 BED REQUEST+ADM ordered. EDMS 15:40 Fingerstick Blood Sugar Reviewed. dt4 15:40 Basic Metabolic Profile Reviewed. dt4 15:40 CBC with Diff Reviewed. dt4 15:40 Liver Profile Reviewed. dt4 15:40 Lactic Acid (Osorio tube on ice) Reviewed. dt4 15:40 -Arterial Blood Gas Reviewed. dt4 15:40 Amylase Reviewed. dt4 15:40 Lipase Reviewed. dt4 15:40 CREATINE PHOSPHOKINASE Reviewed. dt4 15:40 HCG, SERUM QUANTITATIVE Reviewed. dt4 15:44 Insulin Regular Human 5 units IVP once ordered. dt4 15:44 Accucheck hourly ordered. dt4 16:23 Fingerstick Blood Sugar Ordered. EDMS 16:43 Admission / Observation Status ordered. EDMS 16:44 CONSISTENT CARBOHYDRATES ordered. EDMS 16:50 HEMOGLOBIN A1C Ordered. EDMS 19:14 Fingerstick Blood Sugar Ordered. EDMS 22:39 Fingerstick Blood Sugar Ordered. EDMS 05/22 10:07 T-Sheet-- Draft Copy was scanned into [employer] and attached to record. Point of Care Testing: Blood Glucose: 05/21 19:08 Blood Glucose: 89 mg/dL; kas2 Ranges: Administered Medications: 14:40 Drug: NS 0.9% 2000 ml [sodium chloride 0.9 % intravenous solution] Route: IV; Rate: ead bolus; Site: left antecubital; 14:45 Drug: Metoclopramide 20 mg [metoclopramide 5 mg/mL injection solution] Route: IV; Rate: ead 80 mg/hr; Infused Over: 15 mins; Site: left antecubital; 15:32 Follow up: Response: Nausea is decreased; IV Status: Completed infusion [facility] 15:18 Drug: Ondansetron 4 mg [ondansetron HCl 2 mg/mL intravenous solution (2 mL)] Route: [facility] IVP; Site: left antecubital; 15:31 Follow up: Response: Nausea is decreased [facility] 15:46 Drug: ketorolac 30 mg [ketorolac 30 mg/mL (1 mL) injection solution (1 mL)] Route: IVP; [facility] Site: left antecubital; 16:15 Drug: Insulin Regular Human 5 units [insulin regular human 100 unit/mL injection jmk solution (0.05 mL)] {Co-Signature: [id number] (Joseph Jackman RN).} Route: IVP; Site: left antecubital; Signatures: Dispatcher [employer] EDCelestino Love,RN TEDDY calvillok Yesenia CODY, Eva RN Chayito Vinson, Reg Reg Joseph Fernandez RN RN mlb1 Ginger Martinez RN RN sls1 Alda Guevara mm15 Jackie Jones, PA-C PA-C dt4 Tk Radford RN, Emily RN ead Michael Belles RN mb9 The chart was reviewed and I authenticate all verbal orders and agree with the evaluation and treatment provided.Corrections: (The following items were deleted from the chart) 14:29 14:06 LAB URINE TEST+LAB ordered. EDMS EDMS 14:47 14:06 CREATINE PHOSPHOKINASE+LAB ordered. EDMS EDMS 14:47 14:27 HCG, SERUM QUANTITATIVE+LAB ordered. [facility] EDMS Attachments: 14:31 [facility] Payment Agreement mm15 05/22 10:07 T-Sheet-- Draft Copy gb Chart Complete MTDD
--- NOTE | 2016-05-24 02:14 | EDDOCDS ---
Nurse's Notes [facility] Name: Alivia Parks Age: 45 yrs Sex: Female : 1970 Arrival Date: 05/21/2016 Time: 12:53 Bed Admit Hold Private MD: NO PRIMARY PHYSICIAN, . Diagnosis: Alkalosis-pH 7.594;Nausea with vomiting, unspecified;Headache;Abnormal results of kidney function studies-worsening kidney functions Presentation: 05/21 12:59 Presenting complaint: Patient states: Headache nausea and vomiting began yesterday seen mlb1 here last night for same. Adult Sepsis Screening: The patient does not have new or worsening altered mentation. Patient's respiratory rate is less than 22. Systolic blood pressure is greater than 100. Patient has a qSOFA score of 0- Negative Sepsis Screen. Suicide/Homicide risk assessment- the patient denies having any suicidal and/or homicidal ideations and does not present with any other emotional, behavioral or mental health complaints. Status: Patient is not a kosher dietary service manager or dependent. Transition of care: patient was not received from another setting of care. 12:59 Acuity: RITU Level 3 mlb1 12:59 Method Of Arrival: Walkin/Carried/Asstd mlb1 Triage Assessment: 13:01 General: Appears distressed, Behavior is agitated. Pain: Location: head Pain currently mlb1 is 15 out of 10 on a pain scale. HIV screening NA for this visit Offered previously. GI: Reports nausea, vomiting. 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 Novolin N 100 unit/mL Sub-Q susp 6 unit twice a day 2. novolin R 4 unit twice a day - PMHx: Diabetes - IDDM: controlled; - PSHx: none; - Social history: Smoking status: No barriers to communication noted, The patient speaks fluent Belarusian, Speaks appropriately for age. - Family history: Not pertinent. - : The pt / caregiver states he / she is not on anticoagulants. Home medication list is obtained from the patient. - Exposure Risk Screening:: None identified. Screenin:33 Screening information is obtained from the patient. Fall risk: No risks identified. jmk Assistance ADL's: requires no assistance with activities of daily living. Abuse/DV Screen: The patient / caregiver reports he/she is: not in a situation that causes fear, pain or injury. Nutritional screening: No deficits noted. Advance Directives: Currently, there is no health care proxy. There is no active DNR order. There is no living will. There is no Power of Program Director/Music Director. home support is adequate. Assessment: 13:31 General: Appears skin warm and dry color satisfactory. resting quietly on stretcher. jmk Neurological: No deficits noted. Cardiovascular: No deficits noted. Respiratory: No deficits noted. GI: No deficits noted. Abdomen is flat, non- distended. 14:41 General: Appears dramatic presentation. hyperventilating. hands are tingling .coached jmk to slow breathing. Not receptive to instruction. No odor of acetone noted. provider aware. moaning and demanding pain meds. reports nausea . no vomiting noted.. 15:13 General: Appears in no apparent distress, Behavior is appropriate for age, cooperative, jmb Patient laying on stretcher, appears comfortable. Metoclopramide complete. Patient stated that she felt "so, so" when asked how her nausea was. Notified Jackie Chapin of patient's report. NO complaints voiced at this time. . Neurological: Level of Consciousness is awake, alert, obeys commands, Oriented to person, place, time, Speech is normal, Facial symmetry appears normal, Facial symmetry: tongue is midline. Respiratory: Airway is patent Respiratory effort is even, unlabored, Respiratory pattern is regular, symmetrical. 15:19 General: Received call from Shayna in lab whom stated that a blood gas was run on [facility] patient and the blood gas PCO2 was low. Shayna reports that her PCO2 was 18.2. Reported results to Jackie Chapin.. 15:23 General: Received phone call from Shayna in lab. Patient has abnormal lactic acid of jmb 2.2. Jackie Chapin notified. . 15:59 General: Appears 2nd liter of IV fluid is infused. presently resting with eyes closed, jmk resp easy and regular. 16:16 General: Appears . jmk 17:35 General: Appears in no apparent distress, Behavior is appropriate for age, cooperative. js13 Pain: Denies pain. Neurological: Level of Consciousness is awake, alert, obeys commands. Cardiovascular: No deficits noted. Respiratory: Airway is patent Respiratory effort is even, unlabored, Respiratory pattern is regular, symmetrical. GI: Abdomen is flat, non- distended Bowel sounds present X 4 quads. Abd is soft and non tender. Derm: Skin is normal. 18:35 General: Appears in no apparent distress, Behavior is appropriate for age, cooperative. js13 18:35 Pain: Denies pain. Neurological: Level of Consciousness is awake, alert, obeys js13 commands. Cardiovascular: No deficits noted. Respiratory: No deficits noted. Airway is patent Respiratory effort is even, unlabored, Respiratory pattern is regular, symmetrical. GI: Abdomen is flat, non- distended Bowel sounds present X 4 quads. Abd is soft and non tender. Derm: Skin is normal. 19:07 General: Verbal report given by Madison Yeung RN. Assumed care of patient at this time.. [facility] 19:09 General: Appears in no apparent distress, comfortable, Behavior is appropriate for age, kas2 cooperative. Pain: Denies pain. Neurological: No deficits noted. Level of Consciousness is awake, alert, obeys commands, Oriented to person, place, time. Cardiovascular: No deficits noted. Heart tones S1 S2 present Rhythm is regular. Respiratory: Airway is patent Respiratory effort is even, unlabored, Respiratory pattern is regular, symmetrical, Breath sounds are clear bilaterally. GI: Abdomen is flat, non- distended Bowel sounds present X 4 quads. Abd is soft and non tender X 4 quads. Derm: Skin is intact, Skin is dry, Skin temperature is warm. 19:31 General: Patient up in bed eating. No complaints of pain of discomfort. Appears kas2 comfortable. Call horton within reach. Will continue to monitor.. 21:14 General: Appears in no apparent distress, comfortable, Behavior is appropriate for age, kas2 cooperative. Pain: Denies pain. Neurological: Level of Consciousness is awake, alert, obeys commands, Oriented to person, place, time. Cardiovascular: Rhythm is regular. Respiratory: Airway is patent Respiratory effort is even, unlabored, Respiratory pattern is regular, symmetrical. Derm: Skin is intact, Skin is dry, Skin is Skin temperature is warm. 21:55 General: Verbal report given to Mary Martinez RN.. [facility] Vital Signs: 12:55 Resp 22; gr2 13:07 BP 126 / 59; Pulse 96; Temp 96.5(T); Pulse Ox 99% on R/A; Weight 64.41 kg (R); Height 5 mlb1 ft. 7 in. (170.18 cm) (R); Pain 10/10; 21:27 BP 106 / 65; Pulse 72; Resp 16; Temp 97.2(O); Pulse Ox 100% on R/A; lr2 13:07 Body Mass Index 22.24 (64.41 kg, 170.18 cm) mlb1 12:55 PT WILL NOT LET HER VITALS TAKEN gr2 Vitals: 12:55 Log In Time: May 21, 2016 at 12:55. RN notified that patient meets Red Flag gr2 criteria. ED Course: 12:55 Patient visited by Che Abraham. gr2 12:55 NO PRIMARY PHYSICIAN, . is Private Physician. gr2 12:55 Patient moved to Waiting gr2 12:58 Patient visited by Che Abraham. gr2 12:59 Patient visited by Joseph Ruiz RN. mlb1 13:00 Triage Initiated mlb1 13:01 Patient visited by Joseph Ruiz RN. mlb1 13:01 Patient moved to I mlb1 13:53 [facility]. dt4 13:53 Kolton Abel MD is Attending Physician. dt4 13:53 Patient visited by Jackie Jones PA-C. dt4 14:31 [facility] Payment Agreement was scanned into [employer] and attached to record. mm15 14:36 Patient visited by Deb Martin RN. ead 14:41 The patient / caregiver is instructed regarding the plan of care and ED course. jmk 14:41 Inserted saline lock: 20 gauge in left antecubital area. jmk 14:45 Lactic Acid (Osorio tube on ice) Sent. jmk 14:46 Amylase Sent. jmk 14:46 Basic Metabolic Profile Sent. jmk 14:46 CBC with Diff Sent. jmk 14:46 Lipase Sent. jmk 14:46 Liver Profile Sent. jmk 15:02 -Arterial Blood Gas Sent. cs15 15:12 HCG, SERUM QUANTITATIVE Sent. jmk 15:12 CREATINE PHOSPHOKINASE Sent. jmk 15:15 Patient visited by Tk Radford RN. jmb 15:20 No procedures done that require assistance. js13 15:48 Isabel Rodas is Hospitalizing Provider. dt4 16:34 Christel Trivedi,RN is Primary Nurse. js13 16:34 Patient moved to 8 js13 16:49 Report given to Madison Trivedi RN. jmb 18:33 Patient visited by Christel Trivedi RN. js13 18:38 Patient visited by Christel Trivedi RN. js13 19:06 Mary DoshiRN is Primary Nurse. kas2 19:10 Patient visited by Mary Doshi RN. kas2 19:22 Primary Nurse role handed off by Christel Trivedi RN kb5 19:32 Patient visited by Mary Doshi RN. kas2 19:34 Patient moved to Admit Hold sls1 21:15 Patient visited by Mary Doshi RN. kas2 21:36 Patient visited by Mary Doshi RN. kas2 21:56 Patient visited by Mary Doshi RN. kas2 21:59 Patient moved to 21 sls1 21:59 Patient moved to Admit Hold [facility] 05/22 10:07 T-Sheet-- Draft Copy was scanned into [employer] and attached to record. gb Administered Medications: 05/21 14:40 Drug: NS 0.9% 2000 ml [sodium chloride 0.9 % intravenous solution] Route: IV; Rate: ead bolus; Site: left antecubital; 14:45 Drug: Metoclopramide 20 mg [metoclopramide 5 mg/mL injection solution] Route: IV; Rate: ead 80 mg/hr; Infused Over: 15 mins; Site: left antecubital; 15:32 Follow up: Response: Nausea is decreased; IV Status: Completed infusion [facility] 15:18 Drug: Ondansetron 4 mg [ondansetron HCl 2 mg/mL intravenous solution (2 mL)] Route: jmb IVP; Site: left antecubital; 15:31 Follow up: Response: Nausea is decreased [facility] 15:46 Drug: ketorolac 30 mg [ketorolac 30 mg/mL (1 mL) injection solution (1 mL)] Route: IVP; [facility] Site: left antecubital; 16:15 Drug: Insulin Regular Human 5 units [insulin regular human 100 unit/mL injection jmk solution (0.05 mL)] {Co-Signature: kel (Joseph Jackman RN).} Route: IVP; Site: left antecubital; Point of Care Testing: Blood Glucose: 19:08 Blood Glucose: 89 mg/dL; kas2 Ranges: RT: 15:02 ABG's drawn from right radial artery allens test done and positive pressure held for 5 cs15 minutes no bleeding noted pressure bandage applied specimen sent pt. tolerated well. 15:02 Oxygen is room air. cs15 Order Results: Lab Order: Fingerstick Blood Sugar; SPEC' 05/21/16 13:30 Test: BEDSIDE GLUCOSE; Value: 265; Range: 70-105; Abnormal: Above high normal; Units: MG/DL; Status: F Lab Order: Amylase; [facility]' 05/21/16 14:38 Test: AMYLASE; Value: 34; Range: 25-115; Units: U/L; Status: F Lab Order: Basic Metabolic Profile; [facility]' 05/21/16 14:38 Test: GLUCOSE, FASTING; Value: 280; Range: 70-105; Abnormal: Above high normal; Units: MG/DL; Status: F Test: BLOOD UREA NITROGEN; Value: 40; Range: 7-18; Abnormal: Above high normal; Units: MG/DL; Status: F Test: CREATININE FOR GFR; Value: 1.61; Range: 0.55-1.02; Abnormal: Above high normal; Units: MG/DL; Status: F Test: GLOMERULAR FILTRATION RATE; Value: 45.1; Range: >58; Abnormal: Below low normal; Status: F Test: SODIUM LEVEL; Value: 138; Range: 136-145; Units: MEQ/L; Status: F Test: POTASSIUM SERUM; Value: 4.1; Range: 3.5-5.1; Units: MEQ/L; Status: F Test: CHLORIDE LEVEL; Value: 99; Range: 98-107; Units: MEQ/L; Status: F Test: CARBON DIOXIDE LEVEL; Value: 26; Range: 21-32; Units: MEQ/L; Status: F Test: ANION GAP; Value: 13; Range: 8-16; Units: MEQ/L; Status: F Test: CALCIUM LEVEL; Value: 9.8; Range: 8.5-10.1; Units: MG/DL; Status: F Test Note: ; Units are mL/min/1.73 m2 Chronic Kidney Disease Staging per NKF: Stage I & II GFR >=60 Normal to Mildly Decreased Stage III GFR 30-59 Moderately Decreased Stage IV GFR 15-29 Severely Decreased Stage V GFR <15 Very Little GFR Left ESRD GFR <15 on [facility] Lab Order: CBC with Diff; VARUN'Delilah 05/21/16 14:38 Test: WHITE BLOOD COUNT; Value: 13.0; Range: 4.0-10.0; Abnormal: Above high normal; Units: K/mm3; Status: F Test: RED BLOOD COUNT; Value: 4.11; Range: 4.00-5.40; Units: M/mm3; Status: F Test: HEMOGLOBIN; Value: 11.5; Range: 12.0-16.0; Abnormal: Below low normal; Units: g/dl; Status: F Test: HEMATOCRIT; Value: 36.1; Range: 36.0-47.0; Units: %; Status: F Test: MEAN CORPUSCULAR VOLUME; Value: 87.9; Range: 80.0-96.0; Units: fl; Status: F Test: MEAN CORPUSCULAR HEMOGLOBIN; Value: 28.1; Range: 27.0-33.0; Units: pg; Status: F Test: MEAN CORPUSCULAR HGB CONC; Value: 31.9; Range: 32.0-36.5; Abnormal: Below low normal; Units: g/dl; Status: F Test: RED CELL DISTRIBUTION WIDTH; Value: 15.4; Range: 11.5-14.5; Abnormal: Above high normal; Units: %; Status: F Test: PLATELET COUNT, AUTOMATED; Value: 354; Range: 150-450; Units: k/mm3; Status: F Test: NEUTROPHILS %; Value: 80.9; Range: 36.0-66.0; Abnormal: Above high normal; Units: %; Status: F Test: LYMPH %; Value: 12.4; Range: 24.0-44.0; Abnormal: Below low normal; Units: %; Status: F Test: MONO %; Value: 4.3; Range: 0.0-5.0; Units: %; Status: F Test: EOS %; Value: 1.4; Range: 0.0-3.0; Units: %; Status: F Test: BASO %; Value: 0.4; Range: 0.0-1.0; Units: %; Status: F Test: LARGE UNSTAINED CELL %; Value: 0.7; Range: 0.0-4.0; Units: %; Status: F Test: NEUTROPHILS #; Value: 10.5; Range: 1.8-7.7; Abnormal: Above high normal; Units: K/mm3; Status: F Test: LYMPH #; Value: 1.7; Range: 1.5-4.5; Units: K/mm3; Status: F Test: MONO #; Value: 0.6; Range: 0.0-0.8; Units: K/mm3; Status: F Test: EOS #; Value: 0.2; Range: 0.0-0.50; Units: K/mm3; Status: F Test: BASO #; Value: 0.0; Range: 0.0-0.2; Units: K/mm3; Status: F Test: LARGE UNSTAINED CELL #; Value: 0.1; Range: 0.0-0.4; Units: K/mm3; Status: F Lab Order: Lipase; [facility]' 05/21/16 14:38 Test: LIPASE; Value: 112; Range: 73-393; Units: U/L; Status: F Lab Order: Liver Profile; [facility]' 05/21/16 14:38 Test: AST/SGOT; Value: 23; Range: 15-37; Units: U/L; Status: F Test: ALT/SGPT; Value: 25; Range: 12-78; Units: U/L; Status: F Test: ALKALINE PHOSPHATASE; Value: 71; Range: 45-117; Units: U/L; Status: F Test: BILIRUBIN,TOTAL; Value: 1.1; Range: 0.2-1.0; Abnormal: Above high normal; Units: MG/DL; Status: F Test: BILIRUBIN,DIRECT; Value: 0.3; Range: 0.0-0.2; Abnormal: Above high normal; Units: MG/DL; Status: F Test: TOTAL PROTEIN; Value: 8.1; Range: 6.4-8.2; Units: GM/DL; Status: F Test: ALBUMIN; Value: 4.3; Range: 3.2-5.2; Units: GM/DL; Status: F Test: ALBUMIN/GLOBULIN RATIO; Value: 1.13; Range: 1.00-1.93; Status: F Lab Order: Lactic Acid (Osorio tube on ice); [facility]05/21/16 14:38 Test: LACTIC ACID SEPSIS PROTOCOL; Value: 2.2; Range: 0.4-2.0; Abnormal: Above upper panic limits; Units: MMOL/L; Status: F Lab Order: -Arterial Blood Gas; [facility]05/21/16 15:00 Test: ABG pH (ARTERIAL); Value: 7.594; Range: 7.350-7.450; Abnormal: Above high normal; Units: UNITS; Status: F Test: ABG PARTIAL PRESSURE CO2; Value: 18.2; Range: 35.0-45.0; Abnormal: Critical Low; Units: mmHg; Status: F Test: ABG PARTIAL PRESSURE O2; Value: 128.0; Range: 75.0-100.0; Abnormal: Above high normal; Units: mmHg; Status: F Test: ABG TOTAL CO2; Value: 17.8; Range: 22.0-29.0; Abnormal: Below low normal; Units: MEQ/L; Status: F Test: ABG HCO3; Value: 17.2; Range: 22.0-26.0; Abnormal: Below low normal; Units: MEQ/L; Status: F Test: ABG BASE EXCESS; Value: -2.5; Range: -2.0-2.0; Abnormal: Below low normal; Status: F Test: ABG STANDARD HCO3; Value: 22.4; Range: 22.0-26.0; Units: MEQ/L; Status: F Test: ABG O2 SATURATION; Value: 98.9; Range: 95.0-99.0; Units: %; Status: F Test: ABG DEVICE; Value: NASAL BENITA; Status: F Lab Order: CREATINE PHOSPHOKINASE; [facility]05/21/16 14:38 Test: CPK CREATINE PHOSPHOKINASE; Value: 139; Range: 26-192; Units: U/L; Status: F Lab Order: HCG, SERUM QUANTITATIVE; [facility]05/21/16 14:38 Test: HCG, SERUM QUANTITATIVE; Value: < 1.0; Units: MIU/ML; Status: F Test Note: ; GESTATIONAL AGE APPROXIMATE HCG RANGE (MIU/ML) 0.2-1 WEEK 5-50 1-2 WEEKS 50-500 2-3 WEEKS 100-5,000 3-4 WEEKS 500-10,000 4-5 WEEKS 1,000-50,000 5-6 WEEKS 10,000-100,000 6-8 WEEKS 15,000-200,000 2-3 MONTHS 10,000-100,000 NON FEMALES LESS THAN 3.0 Patient samples may contain human heterophilic antibodies that could react with immunoassays to give falsely elevated or depressed results. This assay has been designed to minimize interference from heterophilic antibodies. Elevated hCG levels have also been associated with trophoblastic disease and nontrophoblastic neoplasms. The possibility of having these diseases should be considered before a diagnosis of is made. This test is not intended for use as a surrogate marker for aiding in the diagnosis or monitoring the treatment of cancer patients. [employer] methodology. Lab Order: Fingerstick Blood Sugar; [facility] 05/21/16 16:13 Test: BEDSIDE GLUCOSE; Value: 242; Range: 70-105; Abnormal: Above high normal; Units: MG/DL; Status: F Lab Order: HEMOGLOBIN A1C; [facility] 05/21/16 14:38 Test: HEMOGLOBIN A1c; Value: 10.4; Range: 4.5-6.2; Abnormal: Above high normal; Units: %; Status: F Test: ESTIMATED AVERAGE GLUCOSE; Value: 252; Range: 60-110; Abnormal: Above high normal; Units: MG/DL; Status: F Lab Order: Fingerstick Blood Sugar; [facility] 05/21/16 19:05 Test: BEDSIDE GLUCOSE; Value: 89; Range: 70-105; Units: MG/DL; Status: F Lab Order: Fingerstick Blood Sugar; [facility] 05/21/16 22:30 Test: BEDSIDE GLUCOSE; Value: 232; Range: 70-105; Abnormal: Above high normal; Units: MG/DL; Status: F Outcome: 15:49 Decision to Hospitalize by Provider. dt4 05/22 01:13 Discharge Assessment: patient administered narcotics - no. The following High Risk [facility] Discharge criteria are identified: None. Admitted to Med/Surg accompanied by nurse, accompanied by tech, via stretcher, with chart. Condition: stable. CT Study completed. Property :Personal belongings accompany Pt. 01:13 Patient left the ED. sls1 Signatures: Celestino Phan,RN RN jerman Montalvo, [place]ay[place], Reg Reg gb Joseph, Joseph Campbell RN RN mlb1 Vijay, Brian, FIRE LOSS PREVENTION ENGINEER FIRE LOSS PREVENTION ENGINEER kb5 Ginger Martinez RN RN sls1 Christel TrivediRN RN js13 Che Abraham gr2 Alda Guevara mm15 Tk RadfordRN RN rajinderb Deb Martin,RN RN Jackie Catherine, PA-C PA-C dt4 Edson Camacho,RT RT cs15 Mary DoshiRN RN radha2 Tonia Spangler lr2 Joseph Jackman RN mb9 Corrections: (The following items were deleted from the chart) 05/21 14:47 14:45 HCG, SERUM QUANTITATIVE+LAB sent. [facility] EDCT 14:47 14:45 CREATINE PHOSPHOKINASE+LAB sent. [facility] EDCT 18:37 15:20 General: Appears in no apparent distress, Behavior is appropriate for age, js13 cooperative, [facility] 18:37 15:20 Pain: Denies pain. [place] [id number] 18:37 15:20 Neurological: Level of Consciousness is awake, alert, obeys commands, [place] [id number] 18:37 15:20 Cardiovascular: No deficits noted. [address] 18:37 15:20 Respiratory: Airway is patent Respiratory effort is even, unlabored, Respiratory 13 pattern is regular, symmetrical, 13 18:37 15:20 GI: Abdomen is flat, non- distended Bowel sounds present X 4 quads. Abd is soft js13 and non tender js13 18:37 15:20 Derm: Skin is normal, [address] 18:38 18:35 General: Appears in no apparent distress, js13 js13 Chart Complete MTDD
== END 2016-05-22 14:36 | disposition home or self-care (01) ==
LOC: M ED 12:53 → M MS5PR 16:34 → M ED INP 16:35 → M MS5PR 05-22 01:25
PROVIDERS: ADMIT Internal Medicine; ATTEND Internal Medicine
DX: N17.9 Acute kidney failure, unspecified (principal); R11.2 Nausea with vomiting, unspecified; E10.9 Type 1 diabetes mellitus without complications; E87.3 Alkalosis; D72.829 Elevated white blood cell count, unspecified; R51 Headache; Z79.4 Long term (current) use of insulin; F17.210 Nicotine dependence, cigarettes, uncomplicated
CPT/HCPCS: 36415; 36600; 80048; 80076; 82150; 82550; 82803; 83036; 83605; 83690; 84702; 85025; 96365; 96372; 96375; 99285; J1885; J2405; J2765

== ENCOUNTER 2016-10-02 12:07 | Emergency (ER) | payer OTHER ==
[~2016-10-02] VITALS: Ht 172.7 cm; Wt 75.0 kg
[~2016-10-02 12:07] MED LIST changes: +BACITAB PO; -BACITAB3 PO; +LEVA1TAB2 PO; -LEVA500T PO
[2016-10-02 12:08] VITALS: BP 112/78
== END 2016-10-02 13:20 | disposition left against medical advice (07) ==
LOC: M ED 12:07
DX: N94.9 Unspecified condition associated with female genital organs and menstrual cycle (principal); Z53.29 Procedure and treatment not carried out because of patient's decision for other reasons

== ENCOUNTER 2016-12-10 19:48 | Emergency (ER) | payer OTHER ==
[~2016-12-10] VITALS: Ht 170.2 cm; Wt 68.2 kg
[2016-12-10 19:48] VITALS: BP 147/89
== END 2016-12-10 21:44 | disposition left against medical advice (07) ==
LOC: M ED 19:48
DX: R73.09 Other abnormal glucose (principal); Z53.21 Procedure and treatment not carried out due to patient leaving prior to being seen by health care provider

== ENCOUNTER 2017-04-14 15:46 | Emergency (ER) | payer OTHER | END 2017-04-14 16:44 | disposition home or self-care (01) | LOC: M ED 15:46 | DX: K04.7 Periapical abscess without sinus (principal); K02.9 Dental caries, unspecified; E10.9 Type 1 diabetes mellitus without complications; F17.210 Nicotine dependence, cigarettes, uncomplicated; Z79.4 Long term (current) use of insulin | CPT/HCPCS: 99282 ==

== ENCOUNTER 2017-05-20 10:47 | Inpatient (IN) | payer OTHER ==
[2017-05-20 11:04] LABS: BEDSIDE GLUCOSE 450 MG/DL (70-105)
[2017-05-20] MEDS: NS 1,000 ML IV ×3 (11:15→15:16)
[2017-05-20] MEDS: ONDANSETRON 4MG/2ML VIAL (J2405) IV ×2 (11:25→19:25)
[2017-05-20] MEDS: MORPHINE 4 MG/ML 1ML VIAL (J2270) IV ×2 (11:26→12:02)
[2017-05-20] MEDS ORDERED: METAL LOCK LOOP XX (11:30)
[2017-05-20 11:35] LABS: BEDSIDE GLUCOSE 463 MG/DL (70-105)
[2017-05-20 11:39] LABS: BASO % 0.3 % (0.0-1.0); EOS % 0.1 % (0.0-3.0); HEMATOCRIT 32.1 % (36.0-47.0); HEMOGLOBIN 11.5 g/dl (12.0-16.0); IMMATURE GRANULOCYTE % 0.3 % (0-3.0); LYMPH # 1.3 10^3/uL (1.5-4.5); MEAN CORPUSCULAR HEMOGLOBIN 29.3 pg (27.0-33.0); MEAN CORPUSCULAR HGB CONC 35.8 g/dl (32.0-36.5); MEAN CORPUSCULAR VOLUME 81.9 fl (80.0-96.0); MONO # 0.6 10^3/uL (0.0-0.8); MONO % 5.1 % (0.0-5.0); NEUTROPHILS # 9.7 10^3/uL (1.8-7.7); NEUTROPHILS % 83.2 % (36.0-66.0); PLATELET COUNT, AUTOMATED 370 10^3/uL (150-450); RED BLOOD COUNT 3.92 10^6/uL (4.00-5.40); RED CELL DISTRIBUTION WIDTH 15.3 % (11.5-14.5); WHITE BLOOD COUNT 11.7 10^3/uL (4.0-10.0)
[2017-05-20 11:40] LABS: VENOUS BASE EXCESS 0.1 (-2.0-2.0); VENOUS HCO3 20.4 MEQ/L (23.0-27.0); VENOUS PARTIAL PRESSURE CO2 22.3 mmHg (38.0-50.0); VENOUS PARTIAL PRESSURE O2 39.7 mmHg (30.0-50.0); VENOUS STANDARD HCO3 24.2 MEQ/L; VENOUS TOTAL CO2 21.1 MEQ/L (24.0-28.0)
[2017-05-20 11:58] LABS: CONTROL LINE HCG INT CTR LINE PRESENT; HCG, SERUM QUALITATIVE NEGATIVE (NEGATIVE)
[2017-05-20 12:07] LABS: ACETONE/KETONE 40.75 MG/DL (<2.81); ANION GAP 18 MEQ/L (8-16); BLOOD UREA NITROGEN 36 MG/DL (7-18); CALCIUM LEVEL 10.2 MG/DL (8.5-10.1); CARBON DIOXIDE LEVEL 24 MEQ/L (21-32); CHLORIDE LEVEL 94 MEQ/L (98-107); CREATININE FOR GFR 1.73 MG/DL (0.55-1.30); ESTIMATED AVERAGE GLUCOSE 220 MG/DL (60-110); GLOMERULAR FILTRATION RATE 41.3 (>58); HEMOGLOBIN A1c 9.3 %; POTASSIUM SERUM 3.6 MEQ/L (3.5-5.1); SODIUM LEVEL 136 MEQ/L (136-145)
[2017-05-20 12:08] LABS: GLUCOSE, FASTING 443 MG/DL (70-100)
[2017-05-20] MEDS ORDERED: INSULIN IV RATE CHANGE DOCUMENTATION ML/HR XX ×2 (12:30→12:34)
[2017-05-20] MEDS ORDERED: INSULIN HUMAN REGULAR 100 UNITS in NS 99 ML IV ×2 (12:30→13:00)
[2017-05-20] MEDS: INSULIN HUMAN REGULAR 100 UNITS in NS 99 ML IV ×3 (13:09→17:58)
[2017-05-20] MEDS ORDERED: ACETAMINOPHEN TAB 650MG DOSE (2X325MG) PO (14:15)
[2017-05-20] MEDS ORDERED: KCL 40MEQ in NS 1000ML 1,000 ML IV (14:15)
[2017-05-20] MEDS: INSULIN IV RATE CHANGE DOCUMENTATION ML/HR XX ×3 (14:35→17:59)
[2017-05-20 14:37] LABS: BEDSIDE GLUCOSE 241 MG/DL (70-105)
[2017-05-20 14:57] LABS: CPK CREATINE PHOSPHOKINASE 92 U/L (26-192); TROPONIN I < 0.02 NG/ML (< 0.10)
[2017-05-20 14:58] LABS: MB/CK RELATIVE INDEX 1.08 (< OR =4)
[2017-05-20 15:02] LABS: VENOUS BASE EXCESS -0.8 (-2.0-2.0); VENOUS O2 SATURATION 99.1 % (60.0-80.0); VENOUS PARTIAL PRESSURE CO2 34.6 mmHg (38.0-50.0); VENOUS PARTIAL PRESSURE O2 186.2 mmHg (30.0-50.0); VENOUS STANDARD HCO3 23.9 MEQ/L
[2017-05-20] MEDS: PANTOPRAZOLE 40MG INJ (PROTONIX) (C9113) IV (15:19)
[2017-05-20] MEDS: MULTIVITAMINS/MINERALS THERAP 1 TAB PO (15:19)
[2017-05-20] MEDS: POTASSIUM CHLORIDE 10 MEQ SR TABLET PO (15:19)
[2017-05-20 15:23] LABS: BEDSIDE GLUCOSE 164 MG/DL (70-105)
[2017-05-20 15:33] LABS: ANION GAP 9 MEQ/L (8-16); BLOOD UREA NITROGEN 30 MG/DL (7-18); CALCIUM LEVEL 8.4 MG/DL (8.5-10.1); CARBON DIOXIDE LEVEL 27 MEQ/L (21-32); CHLORIDE LEVEL 109 MEQ/L (98-107); CREATININE FOR GFR 1.41 MG/DL (0.55-1.30); GLOMERULAR FILTRATION RATE 52.3 (>58); GLUCOSE, FASTING 212 MG/DL (70-100); MAGNESIUM LEVEL 2.1 MG/DL (1.8-2.4); PHOSPHORUS LEVEL 3.9 MG/DL (2.5-4.9); POTASSIUM SERUM 3.3 MEQ/L (3.5-5.1); SODIUM LEVEL 145 MEQ/L (136-145)
[2017-05-20 15:38] LABS: ACETONE/KETONE 10.08 MG/DL (<2.81)
[2017-05-20 16:05] LABS: BEDSIDE GLUCOSE 75 MG/DL (70-105)
[2017-05-20] MEDS: PERCOCET 5MG/325MG TAB PO ×2 (16:05→20:33)
[2017-05-20] MEDS: KCL 40MEQ IN D5/NS 1000ML 1,000 ML IV (16:25)
[2017-05-20] MEDS: POTASSIUM CHLORIDE 10% LIQ 20 MEQ/15 ML UDC PO (16:27)
[2017-05-20] MEDS ORDERED: DEXTROSE 50% 50 ML SYRINGE As Ordered (16:31)
[2017-05-20 16:39] LABS: BEDSIDE GLUCOSE 59 MG/DL (70-105)
[2017-05-20] MEDS ORDERED: GLUCAGON FOR INJ 1 MG VIAL (J1610) SC (16:45)
[2017-05-20] MEDS ORDERED: GLUCOSE 4 GM CHEW TABLET PO (16:45)
[2017-05-20 17:10] LABS: BEDSIDE GLUCOSE 180 MG/DL (70-105)
[2017-05-20 17:58] LABS: BEDSIDE GLUCOSE 317 MG/DL (70-105)
[2017-05-20] MEDS: DEXTROSE 50% 50 ML SYRINGE IV (18:39)
[2017-05-20 18:56] LABS: ACETONE/KETONE 8.58 MG/DL (<2.81); ANION GAP 8 MEQ/L (8-16); BLOOD UREA NITROGEN 29 MG/DL (7-18); CALCIUM LEVEL 8.2 MG/DL (8.5-10.1); CARBON DIOXIDE LEVEL 26 MEQ/L (21-32); CHLORIDE LEVEL 106 MEQ/L (98-107); CREATININE FOR GFR 1.33 MG/DL (0.55-1.30); GLOMERULAR FILTRATION RATE 55.9 (>58); GLUCOSE, FASTING 287 MG/DL (70-100); POTASSIUM SERUM 4.3 MEQ/L (3.5-5.1); SODIUM LEVEL 140 MEQ/L (136-145)
[2017-05-20 19:00] LABS: BEDSIDE GLUCOSE 314 MG/DL (70-105)
[2017-05-20 19:39] LABS: BEDSIDE GLUCOSE 284 MG/DL (70-105)
[2017-05-20] MEDS: LEVEMIR (INSULIN DETEMIR) 1 UNITS/0.01ML SC (19:50)
[2017-05-20] MEDS: KCL 20MEQ IN 0.45NS 1000ML 1,000 ML IV (20:00)
[2017-05-20 20:19] LABS: CPK CREATINE PHOSPHOKINASE 93 U/L (26-192); TROPONIN I < 0.02 NG/ML (< 0.10)
[2017-05-20 20:23] LABS: MB/CK RELATIVE INDEX 1.07 (< OR =4)
[2017-05-20] MEDS: HEPARIN SOD (PORCINE) 5000 UNITS/ML VIAL SC (20:33)
[2017-05-20] MEDS: METOCLOPRAMIDE INJ 10MG/2ML VIAL (J2765) IV (20:40)
[2017-05-20] MEDS: HumaLOG INSULIN (NovoLOG) PER UNIT SC (20:59)
[2017-05-20 22:29] LABS: BEDSIDE GLUCOSE 114 MG/DL (70-105)
[2017-05-20 22:29] LABS: BEDSIDE GLUCOSE 232 MG/DL (70-105)
[2017-05-20 22:44] LABS: ANION GAP 6 MEQ/L (8-16); BLOOD UREA NITROGEN 25 MG/DL (7-18); CALCIUM LEVEL 8.1 MG/DL (8.5-10.1); CARBON DIOXIDE LEVEL 28 MEQ/L (21-32); CHLORIDE LEVEL 111 MEQ/L (98-107); CREATININE FOR GFR 1.32 MG/DL (0.55-1.30); GLOMERULAR FILTRATION RATE 56.4 (>58); GLUCOSE, FASTING 126 MG/DL (70-100); MAGNESIUM LEVEL 2.3 MG/DL (1.8-2.4); PHOSPHORUS LEVEL 2.5 MG/DL (2.5-4.9); POTASSIUM SERUM 4.4 MEQ/L (3.5-5.1); SODIUM LEVEL 145 MEQ/L (136-145)
[2017-05-20 22:56] LABS: ACETONE/KETONE 0.64 MG/DL (<2.81)
[2017-05-21 00:24] LABS: BEDSIDE GLUCOSE 115 MG/DL (70-105)
[2017-05-21] MEDS: KCL 20MEQ IN 0.45NS 1000ML 1,000 ML IV ×2 (00:45→06:00)
[2017-05-21] MEDS ORDERED: KCL 20MEQ IN D5/0.45NS 1000ML 1,000 ML IV (00:45)
[2017-05-21 02:26] LABS: ACETONE/KETONE 21.94 MG/DL (<2.81); ANION GAP 9 MEQ/L (8-16); BLOOD UREA NITROGEN 23 MG/DL (7-18); CALCIUM LEVEL 8.1 MG/DL (8.5-10.1); CARBON DIOXIDE LEVEL 23 MEQ/L (21-32); CHLORIDE LEVEL 110 MEQ/L (98-107); GLOMERULAR FILTRATION RATE > 60.0 (>58); GLUCOSE, FASTING 99 MG/DL (70-100); MAGNESIUM LEVEL 2.1 MG/DL (1.8-2.4); POTASSIUM SERUM 4.4 MEQ/L (3.5-5.1); SODIUM LEVEL 142 MEQ/L (136-145)
[2017-05-21 02:31] LABS: BEDSIDE GLUCOSE 108 MG/DL (70-105)
[2017-05-21 04:23] LABS: BEDSIDE GLUCOSE 68 MG/DL (70-105)
[2017-05-21] MEDS: ONDANSETRON 4MG/2ML VIAL (J2405) IV (04:43)
[2017-05-21] MEDS: METOCLOPRAMIDE INJ 10MG/2ML VIAL (J2765) IV (04:59)
[2017-05-21 05:02] LABS: BEDSIDE GLUCOSE 93 MG/DL (70-105)
[2017-05-21] MEDS: PERCOCET 5MG/325MG TAB PO (05:14)
[2017-05-21 05:57] LABS: HEMATOCRIT 27.6 % (36.0-47.0); MEAN CORPUSCULAR HEMOGLOBIN 28.5 pg (27.0-33.0); MEAN CORPUSCULAR HGB CONC 34.1 g/dl (32.0-36.5); MEAN CORPUSCULAR VOLUME 83.6 fl (80.0-96.0); PLATELET COUNT, AUTOMATED 301 10^3/uL (150-450); RED CELL DISTRIBUTION WIDTH 15.5 % (11.5-14.5); WHITE BLOOD COUNT 11.3 10^3/uL (4.0-10.0)
[2017-05-21 06:07] LABS: HEMOGLOBIN 9.4 g/dl (12.0-16.0)
[2017-05-21 06:15] LABS: ACETONE/KETONE 14.79 MG/DL (<2.81); ALBUMIN 3.8 GM/DL (3.2-5.2); ALBUMIN/GLOBULIN RATIO 1.31 (1.00-1.93); ALKALINE PHOSPHATASE 53 U/L (45-117); ALT/SGPT 14 U/L (12-78); ANION GAP 13 MEQ/L (8-16); AST/SGOT 13 U/L (7-37); BILIRUBIN,TOTAL 0.7 MG/DL (0.2-1.0); BLOOD UREA NITROGEN 21 MG/DL (7-18); CALCIUM LEVEL 8.3 MG/DL (8.5-10.1); CARBON DIOXIDE LEVEL 18 MEQ/L (21-32); CHLORIDE LEVEL 109 MEQ/L (98-107); GLOMERULAR FILTRATION RATE > 60.0 (>58); GLUCOSE, FASTING 130 MG/DL (70-100); MAGNESIUM LEVEL 2.2 MG/DL (1.8-2.4); PHOSPHORUS LEVEL 1.8 MG/DL (2.5-4.9); POTASSIUM SERUM 4.1 MEQ/L (3.5-5.1); SODIUM LEVEL 140 MEQ/L (136-145); TOTAL PROTEIN 6.7 GM/DL (6.4-8.2)
[2017-05-21 06:17] LABS: BEDSIDE GLUCOSE 151 MG/DL (70-105)
[2017-05-21] MEDS ORDERED: NS 0.45% 1,000 ML IV (07:15)
[2017-05-21] MEDS ORDERED: HumaLOG INSULIN (NovoLOG) PER UNIT SC (07:30)
[2017-05-21 07:50] LABS: BEDSIDE GLUCOSE 170 MG/DL (70-105)
[2017-05-21] MEDS ORDERED: SODIUM PHOSPHATE INJ 30 MMOL in D5W 500 ML IV (09:00)
[2017-05-21] MEDS ORDERED: LEVEMIR (INSULIN DETEMIR) 1 UNITS/0.01ML SC (21:00)
== END 2017-05-21 08:08 | disposition home or self-care (01) | DRG 420 ==
LOC: M ED 10:47 → M ED INP 14:02 → M ICU 15:05
PROVIDERS: Hospitalist
DX: E10.10 Type 1 diabetes mellitus with ketoacidosis without coma (principal); N17.9 Acute kidney failure, unspecified; E10.21 Type 1 diabetes mellitus with diabetic nephropathy; E87.6 Hypokalemia; E86.0 Dehydration; E10.65 Type 1 diabetes mellitus with hyperglycemia; Z79.4 Long term (current) use of insulin

== ENCOUNTER 2017-05-24 18:17 | Emergency (ER) | payer OTHER ==
[2017-05-24] MEDS: ONDANSETRON 4MG/2ML VIAL (J2405) IV (19:51)
[2017-05-24] MEDS: MORPHINE 4 MG/ML 1ML VIAL (J2270) IV (19:51)
[2017-05-24] MEDS: NS 1,000 ML IV (19:52)
[2017-05-24 19:54] LABS: BASO % 0.4 % (0.0-1.0); EOS # 0.1 10^3/uL (0.0-0.50); EOS % 0.6 % (0.0-3.0); HEMATOCRIT 28.9 % (36.0-47.0); IMMATURE GRANULOCYTE % 0.3 % (0-3.0); LYMPH # 1.6 10^3/uL (1.5-4.5); LYMPH % 20.1 % (24.0-44.0); MEAN CORPUSCULAR HEMOGLOBIN 28.6 pg (27.0-33.0); MEAN CORPUSCULAR HGB CONC 34.6 g/dl (32.0-36.5); MEAN CORPUSCULAR VOLUME 82.6 fl (80.0-96.0); MONO # 0.5 10^3/uL (0.0-0.8); MONO % 6.6 % (0.0-5.0); NEUTROPHILS # 5.6 10^3/uL (1.8-7.7); PLATELET COUNT, AUTOMATED 297 10^3/uL (150-450); RED CELL DISTRIBUTION WIDTH 14.6 % (11.5-14.5); WHITE BLOOD COUNT 7.8 10^3/uL (4.0-10.0)
[2017-05-24 20:06] LABS: INR 0.99; PROTHROMBIN TIME 13.2 SECONDS (12.4-14.5)
[2017-05-24 20:07] LABS: PARTIAL THROMBOPLASTIN TIME 29.5 SECONDS (26.8-37.9)
[2017-05-24 20:09] LABS: ABG HCO3 22.9 MEQ/L (22.0-26.0); ABG O2 SATURATION 98.1 % (95.0-99.0); ABG PARTIAL PRESSURE CO2 27.8 mmHg (35.0-45.0); ABG PARTIAL PRESSURE O2 98.3 mmHg (75.0-100.0); ABG STANDARD HCO3 25.4 MEQ/L (22.0-26.0); ABG TOTAL CO2 23.8 MEQ/L (22.0-29.0); ABG pH (ARTERIAL) 7.534 UNITS (7.350-7.450)
[2017-05-24 20:13] LABS: ERYTHROCYTE SEDIMENTATION RATE 36 mm/hr (0-20)
[2017-05-24 20:23] LABS: ALBUMIN 4.2 GM/DL (3.2-5.2); ALBUMIN/GLOBULIN RATIO 1.27 (1.00-1.93); ALKALINE PHOSPHATASE 56 U/L (45-117); ALT/SGPT 16 U/L (12-78); ANION GAP 14 MEQ/L (8-16); AST/SGOT 12 U/L (7-37); BILIRUBIN,DIRECT 0.3 MG/DL (0.0-0.2); BILIRUBIN,TOTAL 0.9 MG/DL (0.2-1.0); BLOOD UREA NITROGEN 21 MG/DL (7-18); C REACTIVE PROTEIN QUANTITATIV 1.66 MG/DL (0.00-0.30); CALCIUM LEVEL 9.3 MG/DL (8.5-10.1); CARBON DIOXIDE LEVEL 22 MEQ/L (21-32); CHLORIDE LEVEL 103 MEQ/L (98-107); CPK CREATINE PHOSPHOKINASE 69 U/L (26-192); CREATININE FOR GFR 1.11 MG/DL (0.55-1.30); GLOMERULAR FILTRATION RATE > 60.0 (>58); GLUCOSE, FASTING 126 MG/DL (70-100); LIPASE 116 U/L (73-393); MB/CK RELATIVE INDEX 1.44 (< OR =4); POTASSIUM SERUM 3.5 MEQ/L (3.5-5.1); SODIUM LEVEL 139 MEQ/L (136-145); TOTAL PROTEIN 7.5 GM/DL (6.4-8.2); TROPONIN I < 0.02 NG/ML (< 0.10)
[2017-05-24 21:36] LABS: CONTROL LINE HCG INT CTR LINE PRESENT; HCG, SERUM QUALITATIVE NEGATIVE (NEGATIVE)
[2017-05-24] MEDS ORDERED: ISOVUE-370 76% 100ML VIAL (Q9967) As Ordered (22:04)
[2017-05-24] MEDS: KETOROLAC 30 MG/ML VIAL (J1885) IV (22:20)
[2017-05-24 22:33] LABS: D-DIMER QUANT 472.3 ng/ml (<500)
[2017-05-27 09:43] LABS: BEDSIDE GLUCOSE 124 MG/DL (70-105)
== END 2017-05-25 02:53 | disposition home or self-care (01) ==
LOC: M ED 05-25 02:53
DX: R07.89 Other chest pain (principal); R55 Syncope and collapse; E10.9 Type 1 diabetes mellitus without complications; Z87.891 Personal history of nicotine dependence
CPT/HCPCS: J2270

== ENCOUNTER 2017-05-30 16:11 | Emergency (ER) | payer OTHER ==
[2017-05-30 17:54] LABS: BASO % 0.3 % (0.0-1.0); EOS # 0.1 10^3/uL (0.0-0.50); EOS % 0.5 % (0.0-3.0); HEMATOCRIT 28.9 % (36.0-47.0); HEMOGLOBIN 9.9 g/dl (12.0-16.0); IMMATURE GRANULOCYTE % 0.2 % (0-3.0); LYMPH # 1.3 10^3/uL (1.5-4.5); LYMPH % 14.5 % (24.0-44.0); MEAN CORPUSCULAR HEMOGLOBIN 28.4 pg (27.0-33.0); MEAN CORPUSCULAR HGB CONC 34.3 g/dl (32.0-36.5); MEAN CORPUSCULAR VOLUME 82.8 fl (80.0-96.0); MONO # 0.5 10^3/uL (0.0-0.8); NEUTROPHILS # 7.3 10^3/uL (1.8-7.7); NEUTROPHILS % 79.5 % (36.0-66.0); PLATELET COUNT, AUTOMATED 310 10^3/uL (150-450); RED BLOOD COUNT 3.49 10^6/uL (4.00-5.40); WHITE BLOOD COUNT 9.2 10^3/uL (4.0-10.0)
[2017-05-30] MEDS: NS 1,000 ML IV (18:02)
[2017-05-30] MEDS: PANTOPRAZOLE 40MG INJ (PROTONIX) (C9113) IV (18:02)
[2017-05-30] MEDS: MORPHINE 2 MG/ML 1ML SYRINGE (J2270) IV (18:07)
[2017-05-30] MEDS: METOCLOPRAMIDE INJ 10MG/2ML VIAL (J2765) IV (18:08)
[2017-05-30 18:12] LABS: ALBUMIN 4.2 GM/DL (3.2-5.2); ALBUMIN/GLOBULIN RATIO 1.27 (1.00-1.93); ALKALINE PHOSPHATASE 55 U/L (45-117); ALT/SGPT 17 U/L (12-78); AMYLASE 52 U/L (25-115); ANION GAP 10 MEQ/L (8-16); AST/SGOT 16 U/L (7-37); BILIRUBIN,DIRECT 0.1 MG/DL (0.0-0.2); BILIRUBIN,TOTAL 0.4 MG/DL (0.2-1.0); BLOOD UREA NITROGEN 11 MG/DL (7-18); C REACTIVE PROTEIN QUANTITATIV 0.61 MG/DL (0.00-0.30); CALCIUM LEVEL 9.6 MG/DL (8.5-10.1); CARBON DIOXIDE LEVEL 25 MEQ/L (21-32); CHLORIDE LEVEL 101 MEQ/L (98-107); CPK CREATINE PHOSPHOKINASE 95 U/L (26-192); CREATININE FOR GFR 1.29 MG/DL (0.55-1.30); GLOMERULAR FILTRATION RATE 57.9 (>58); GLUCOSE, FASTING 247 MG/DL (70-100); LIPASE 102 U/L (73-393); MB/CK RELATIVE INDEX 1.05 (< OR =4); POTASSIUM SERUM 3.9 MEQ/L (3.5-5.1); SODIUM LEVEL 136 MEQ/L (136-145); TOTAL PROTEIN 7.5 GM/DL (6.4-8.2); TROPONIN I < 0.02 NG/ML (< 0.10)
[2017-05-30] MEDS ORDERED: ISOVUE-370 76% 100ML VIAL (Q9967) As Ordered (18:29)
[2017-05-30 18:51] LABS: CONTROL LINE HCG INT CTR LINE PRESENT; HCG, SERUM QUALITATIVE NEGATIVE (NEGATIVE)
[2017-05-30 19:06] LABS: INR 1.15; PARTIAL THROMBOPLASTIN TIME 30.9 SECONDS (26.8-37.9); PROTHROMBIN TIME 14.9 SECONDS (12.4-14.5)
[2017-05-30 19:11] LABS: KETONE, URINE AUTO RFX 1+ mg/dL (NEGATIVE); LEUKOCYTE ESTERASE UR AUTO RFX NEGATIVE (NEGATIVE); NITRITE, URINE AUTO RFX NEGATIVE (NEGATIVE); RBC, URINE AUTO RFX 1 /HPF (0-3); SPECIFIC GRAVITY UR AUTO RFX 1.017 (1.002-1.035); SQUAM EPITHELIAL CELL UR AURFX 1 /HPF (0-6); WBC, URINE AUTO RFX 1 /HPF (0-3)
[2017-05-30 19:13] LABS: LACTIC ACID SEPSIS PROTOCOL 1.7 MMOL/L (0.4-2.0)
[2017-05-30] MEDS: KETOROLAC 30 MG/ML VIAL (J1885) IV (19:41)
[2017-05-30] MEDS: ONDANSETRON 4MG/2ML VIAL (J2405) IV (20:46)
[2017-05-30] MEDS: PROMETHAZINE INJ 25 MG/ML VIAL (J2550) IV (20:46)
== END 2017-05-30 21:26 | disposition home or self-care (01) ==
LOC: M ED 16:11
DX: K31.84 Gastroparesis (principal); K29.70 Gastritis, unspecified, without bleeding; E10.9 Type 1 diabetes mellitus without complications; F17.210 Nicotine dependence, cigarettes, uncomplicated; Z79.4 Long term (current) use of insulin; Z79.899 Other long term (current) drug therapy
CPT/HCPCS: C9113

== ENCOUNTER 2017-08-26 10:42 | Emergency (ER) | payer OTHER ==
[2017-08-26] MEDS: NS 1,000 ML IV ×3 (11:33→13:45)
[2017-08-26 11:40] LABS: VENOUS BASE EXCESS 2.1 (-2.0-2.0); VENOUS HCO3 24.9 MEQ/L (23.0-27.0); VENOUS O2 SATURATION 99.2 % (60.0-80.0); VENOUS PARTIAL PRESSURE CO2 32.4 mmHg (38.0-50.0); VENOUS PARTIAL PRESSURE O2 151.1 mmHg (30.0-50.0); VENOUS PH 7.503 UNITS (7.330-7.430); VENOUS STANDARD HCO3 26.4 MEQ/L; VENOUS TOTAL CO2 25.9 MEQ/L (24.0-28.0)
[2017-08-26 11:46] LABS: BASO % 0.4 % (0.0-1.0); HEMOGLOBIN 9.7 g/dl (12.0-15.5); IMMATURE GRANULOCYTE % 0.3 % (0-3.0); LYMPH # 0.9 10^3/uL (1.5-4.5); LYMPH % 8.2 % (24.0-44.0); MEAN CORPUSCULAR HGB CONC 34.6 g/dl (32.0-36.5); MEAN CORPUSCULAR VOLUME 83.8 fl (80.0-96.0); MONO # 0.6 10^3/uL (0.0-0.8); MONO % 5.1 % (0.0-5.0); NEUTROPHILS # 9.8 10^3/uL (1.8-7.7); PLATELET COUNT, AUTOMATED 337 10^3/uL (150-450); RED BLOOD COUNT 3.34 10^6/uL (4.00-5.40); RED CELL DISTRIBUTION WIDTH 15.4 % (11.5-14.5); WHITE BLOOD COUNT 11.3 10^3/uL (4.0-10.0)
[2017-08-26] MEDS: diphenhydrAMINE INJ 50MG/ML VIAL (J1200) IV (11:59)
[2017-08-26] MEDS: KETOROLAC 30 MG/ML VIAL (J1885) IV (12:00)
[2017-08-26] MEDS: METOCLOPRAMIDE INJ 10MG/2ML VIAL (J2765) IV (12:00)
[2017-08-26 12:05] LABS: CONTROL LINE HCG INT CTR LINE PRESENT; HCG, SERUM QUALITATIVE NEGATIVE (NEGATIVE)
[2017-08-26 12:13] LABS: ALBUMIN 4.3 GM/DL (3.2-5.2); ALBUMIN/GLOBULIN RATIO 1.16 (1.00-1.93); ALKALINE PHOSPHATASE 61 U/L (45-117); ALT/SGPT 18 U/L (12-78); ANION GAP 10 MEQ/L (8-16); AST/SGOT 12 U/L (7-37); BILIRUBIN,DIRECT 0.2 MG/DL (0.0-0.2); BILIRUBIN,TOTAL 0.9 MG/DL (0.2-1.0); BLOOD UREA NITROGEN 28 MG/DL (7-18); CALCIUM LEVEL 9.7 MG/DL (8.5-10.1); CARBON DIOXIDE LEVEL 25 MEQ/L (21-32); CHLORIDE LEVEL 106 MEQ/L (98-107); GLOMERULAR FILTRATION RATE 52.7 (>58); GLUCOSE, FASTING 302 MG/DL (70-100); LIPASE 95 U/L (73-393); POTASSIUM SERUM 3.8 MEQ/L (3.5-5.1); SODIUM LEVEL 141 MEQ/L (136-145)
[2017-08-26 14:59] LABS: BEDSIDE GLUCOSE 222 MG/DL (70-105)
[2017-08-26] MEDS ORDERED: ISOVUE-370 76% 100ML VIAL (Q9967) As Ordered (15:35)
[2017-08-26] MEDS: PROMETHAZINE INJ 25 MG/ML VIAL (J2550) IV (15:56)
[2017-08-27 11:00] LABS: BEDSIDE GLUCOSE 316 MG/DL (70-105)
== END 2017-08-26 17:01 | disposition home or self-care (01) ==
LOC: M ED 10:42
DX: E11.65 Type 2 diabetes mellitus with hyperglycemia (principal); Z79.4 Long term (current) use of insulin; R19.7 Diarrhea, unspecified
CPT/HCPCS: J1200

== ENCOUNTER → 2018-03-31 | Outpatient (REF) | payer OTHER, MEDICAID ==
[~2018-03-31] MED LIST changes: +IBUP-1022 PO; +NAPR-50 PO; +PENI500T OR; +PERC5TAB12 PO; +VITMTA PO; +ZOFR4TAB14 PO
[2018-03-31 13:07] LABS: ALBUMIN 3.6 GM/DL (3.2-5.2); BILIRUBIN,TOTAL 0.3 MG/DL (0.2-1.0); CALCIUM LEVEL 8.9 MG/DL (8.5-10.1); CHOLESTEROL RISK RATIO 2.935 (<5); CREATININE FOR GFR 1.27 MG/DL (0.55-1.30); GLOMERULAR FILTRATION RATE 58.7 (>58); POTASSIUM SERUM 4.6 MEQ/L (3.5-5.1); THYROID STIMULATING HORMONE 0.675 uIU/ML (0.358-3.740); TOTAL PROTEIN 6.7 GM/DL (6.4-8.2)
[2018-03-31 13:31] LABS: CREATININE, URINE 84.1 MG/DL; MALB URINE SIEMENS 12.5 MG/L; MAU/CREAT RATIO 14.8 MCG/MG (0.0-30.0)
[2018-03-31 14:57] LABS: HEMOGLOBIN A1c 10.3 %
== END ==
LOC: M LAB REF 12:11
PROVIDERS: ATTEND Family Medicine Addiction Medicine
DX: E10.9 Type 1 diabetes mellitus without complications (principal)

== ENCOUNTER 2018-06-21 12:45 | Inpatient (IN) | payer MEDICAID, OTHER ==
[~2018-06-21] VITALS: Ht 170.2 cm; Wt 74.0 kg
[2018-06-21 13:50] LABS: BASO # 0.1 10^3/uL (0.0-0.2); BASO % 0.5 % (0.0-1.0); EOS % 0.1 % (0.0-3.0); HEMOGLOBIN 11.1 g/dl (12.0-15.5); LYMPH # 1.4 10^3/uL (1.5-4.5); LYMPH % 12.8 % (24.0-44.0); MEAN CORPUSCULAR HGB CONC 34.7 g/dl (32.0-36.5); MEAN CORPUSCULAR VOLUME 83.6 fl (80.0-96.0); MONO # 0.6 10^3/uL (0.0-0.8); MONO % 5.7 % (0.0-5.0); NEUTROPHILS # 8.7 10^3/uL (1.8-7.7); NEUTROPHILS % 80.5 % (36.0-66.0); PLATELET COUNT, AUTOMATED 381 10^3/uL (150-450); RED BLOOD COUNT 3.83 10^6/uL (4.00-5.40); VENOUS BASE EXCESS -0.4 (-2.0-2.0); VENOUS HCO3 21.6 MEQ/L (23.0-27.0); VENOUS O2 SATURATION 97.9 % (60.0-80.0); VENOUS PARTIAL PRESSURE O2 97.9 mmHg (30.0-50.0); VENOUS PH 7.506 UNITS (7.330-7.430); VENOUS STANDARD HCO3 24.2 MEQ/L; VENOUS TOTAL CO2 22.5 MEQ/L (24.0-28.0); WHITE BLOOD COUNT 10.7 10^3/uL (4.0-10.0)
--- NOTE | 2018-06-21 14:05 | REP ---
Chest one-view HISTORY: Chest pain Comparison: 05/30/2017 The lungs are clear. The heart is normal in size. The pulmonary vasculature is normal in appearance. Impression: No acute disease. Electronically Signed by Al Pedroza MD 06/21/2018 01:57 P
[2018-06-21 14:18] LABS: ALBUMIN 4.7 GM/DL (3.2-5.2); ALT/SGPT 25 U/L (12-78); BILIRUBIN,DIRECT 0.3 MG/DL (0.0-0.2); BLOOD UREA NITROGEN 46 MG/DL (7-18); CALCIUM LEVEL 10.2 MG/DL (8.5-10.1); CARBON DIOXIDE LEVEL 20 MEQ/L (21-32); CHLORIDE LEVEL 99 MEQ/L (98-107); CPK CREATINE PHOSPHOKINASE 387 U/L (26-192); GLOMERULAR FILTRATION RATE 34.8 (>58); GLUCOSE, FASTING 374 MG/DL (70-100); LIPASE 125 U/L (73-393); MB/CK RELATIVE INDEX 0.47 (< OR =4); POTASSIUM SERUM 4.3 MEQ/L (3.5-5.1); SODIUM LEVEL 135 MEQ/L (136-145); TOTAL PROTEIN 8.5 GM/DL (6.4-8.2); TROPONIN I < 0.02 NG/ML (< 0.10)
[2018-06-21] MEDS ORDERED: NS 1,000 ML IV ONE ×2 (14:30→15:45)
[2018-06-21 14:32] LABS: ACETONE/KETONE 22.75 MG/DL (<2.81)
[2018-06-21] MEDS: MORPHINE 2 MG/ML 1ML SYRINGE (J2270) IV PRN ×2 (14:42→18:26)
[2018-06-21] MEDS ORDERED: ONDANSETRON 4MG/2ML VIAL (J2405) IV ONE (15:30)
--- NOTE | 2018-06-21 15:46 | ECGEPIP ---
Stationary ECG Study [facility] - ED Test Date: 2018-06-21 Pat Name: CHINMAY CHEST Department: Room: - Gender: F Porcelain Turner: : 1970 Requested By: Cyndy Cloud Order Number: [id number] Reading MD: Rocky Lennon Measurements Intervals Pelzer Rate: 85 P: 76 RI: 146 QRS: 44 QRSD: 80 T: 47 QT: 380 QTc: 453 Interpretive Statements SINUS RHYTHM POOR R WAVE PROGRESSION NONSPECIFIC T-WAVE ABNORMALITY RATE CHANGE COMPARED TO 05/30/17 Electronically Signed On 06-21-2018 15:45:52 EDT by Rocky Lennon
[2018-06-21] MEDS ORDERED: HumaLOG INSULIN (NovoLOG) PER UNIT SC ONE (17:15)
--- NOTE | 2018-06-21 17:54 | REP ---
CT CHEST WITHOUT IV CONTRAST: CT chest was performed without IV contrast. Sagittal and coronal reconstruction images are performed. Lungs showed no infiltrate with minimal scattered fibrotic change. Heart is normal in size. There is no pleural or pericardial effusion. No significantly enlarged lymph nodes are seen in the mediastinal region. Visualized osseous structures appear intact. IMPRESSION: Essentially negative noncontrast CT of the chest with no acute infiltrate or other acute abnormality. Electronically Signed by Asad Osorio MD 06/23/2018 12:23 P
--- NOTE | 2018-06-21 18:18 | REP ---
CT ABDOMEN AND PELVIS WITHOUT CONTRAST: CT of the abdomen and pelvis was performed without oral or IV contrast. Sagittal and coronal reconstruction images are performed. Comparison is made with prior study of 08/26/2017. The liver, gallbladder, spleen, adrenals, pancreas and kidneys are grossly unremarkable. I see no renal or ureteral calculus and no hydroureteronephrosis. There is no abdominal aortic aneurysm. I see no adenopathy. There is no free air. No bowel thickening is seen. There is no evidence of appendicitis. There is a tiny amount of free fluid in the pelvis which is likely physiologic. Urinary bladder demonstrates no gross abnormality. There is no definite pelvis mass. There may be a dominant follicle in the right ovary about 2 cm in diameter. IMPRESSION: No acute abnormalities are detected. No renal or ureteral calculus and no hydroureteronephrosis. No appendicitis. A tiny amount of free fluid in the pelvis is likely physiologic. Electronically Signed by Asad Osorio MD 06/23/2018 12:24 P
[2018-06-21 19:05] LABS: CPK CREATINE PHOSPHOKINASE 304 U/L (26-192); MB/CK RELATIVE INDEX 0.46 (< OR =4); TROPONIN I < 0.02 NG/ML (< 0.10)
[2018-06-21 19:21] LABS: INFLUENZA A AMPLIFICATION NEGATIVE (NEGATIVE); INFLUENZA B AMPLIFICATION NEGATIVE (NEGATIVE)
[2018-06-21] MEDS ORDERED: MORPHINE 2 MG/ML 1ML SYRINGE (J2270) IV PRN (21:30)
[2018-06-21 21:33] LABS: C REACTIVE PROTEIN QUANTITATIV 4.47 MG/DL (0.00-0.30)
[2018-06-21] MEDS ORDERED: HAIR1CHW2 PO (21:55)
[2018-06-21 22:00] LABS: ERYTHROCYTE SEDIMENTATION RATE 60 mm/hr (0-20)
[2018-06-21] MEDS ORDERED: GLUCOSE 4 GM CHEW TABLET PO PRN (22:45)
[2018-06-21] MEDS ORDERED: GLUCAGON FOR INJ 1 MG VIAL (J1610) SC PRN (22:45)
[2018-06-21] MEDS ORDERED: METOCLOPRAMIDE INJ 10MG/2ML VIAL (J2765) IV PRN (22:45)
--- NOTE | 2018-06-21 23:45 | HPE ---
DATE OF ADMISSION: 06/21/2018 CHIEF COMPLAINT: Abdominal pain, chest pain, constant for the last 2 days with multiple episodes of nonbloody, nonbilious vomiting. HISTORY OF THE PRESENT ILLNESS: The patient is a 47-year-old female with significant past medical history of insulin-dependent diabetes. She is on 70-30 sliding scale at home. She presents to the emergency room with two days of abdominal pain associated with multiple episodes of nonbloody, non bilious vomiting. She states she checked her fingersticks at home, and it was in the 400s. She said on presentation to the emergency room, fingerstick was also in the 400s, on BMP was 374. The first fingerstick collected in the emergency room was 165. She denies any cough, fevers, chills, urinary symptoms, constipation or diarrhea. She is very nontoxic appearing in the emergency room. She states that she also feels a sensation of an elephant sitting on her chest. She has already had two troponins which have been negative, and this chest pain is noncardiac. This has been constant for the last 48 hours. PAST MEDICAL HISTORY: See history of the present illness. PAST SURGICAL HISTORY: She has had a dilation and curettage (D and C). ALLERGIES: No known drug allergies. HOME MEDICATIONS: She is on 70/30 sliding scale. FAMILY HISTORY: Noncontributory. REVIEW OF SYSTEMS: A 12-point review of systems was completed, all of which were negative except those listed in the history of the present illness. ADMISSION VITAL SIGNS: Temperature of 99, pulse of 119, respirations of 26, saturating at 100% on room air. Blood pressure 117/63. PHYSICAL EXAMINATION: General: She appears well nourished, nontoxic appearing, in no apparent distress. Head is normocephalic, atraumatic Eyes: Extraocular movements are intact. Pupils equal, round, reactive to light. Neck is supple. No jugular venous pressure (JVP). Lungs: Clear to auscultation. No crackles, wheezes. Cardiovascular: Regular rate and rhythm. Normal S1, S2. No murmurs, gallops, or rubs. Abdomen: Soft. It is nontender, nondistended. There is no rebound, no guarding, positive bowel sounds. Extremities: No pitting edema or calf tenderness. Skin: Intact. No rashes, lesions, or breakdown. Neurological: Alert and oriented times three. No focal deficits. LABS AND IMAGING: Completed in the emergency room. White count of 10, hemoglobin and hematocrit of 11 over 32, platelet count of 381. VBG shows a pH of 7.5. Chemistry shows a sodium of 135, bicarbonate of 20, normal anion gap, creatinine of 2, baseline creatinine appears to be 1.2. CRP of 4.4. Troponins has already been negative times two. Admitting lipase within normal limits and liver function test also within normal limits. UA is unremarkable; there is no significant pyuria, 2 WBCs. Rapid flu is negative. Imaging completed in the emergency room. CT of the abdomen and pelvis reviewed, is unremarkable. CT of the chest also unremarkable. Chest x-ray is unremarkable. ASSESSMENT AND PLAN: Nausea, vomiting with uncontrolled hyperglycemia, and acute renal failure. It is possibly secondary to gastroenteritis versus marijuana cyclical vomiting. Will send urine toxicology. Will treat symptomatically for now. IV fluids, Reglan, Zofran as needed. Will trend renal function until it normalizes. For insulin, will place her on basal bolus. Will place her on Levemir 12 units as well as sliding scale. Will send a hemoglobin A1c. She will likely need diabetic education. SUPPORTIVE: Deep vein thrombosis (DVT) prophylaxis: Heparin subcu. Gastrointestinal (GI) prophylaxis: Not indicated. Diet: Diabetic. Will do morphine 1 mg every 8 hours for now as needed for abdominal pain. There may be a component of malingering in this setting, which is unclear at this point in time.
[2018-06-22 02:05] VITALS: BP 149/84
[2018-06-22] MEDS: ONDANSETRON 4MG/2ML VIAL (J2405) IV PRN ×3 (02:27→18:18)
[2018-06-22] MEDS: NS 1,000 ML IV SCH ×2 (02:27→12:20)
[2018-06-22] MEDS: HEPARIN SOD (PORCINE) 5000 UNITS/ML VIAL SC SCH ×3 (05:48→22:44)
[2018-06-22 06:00] VITALS: BP 151/90
[2018-06-22 06:39] LABS: HEMATOCRIT 29.7 % (36.0-47.0); HEMOGLOBIN 9.8 g/dl (12.0-15.5); MEAN CORPUSCULAR HEMOGLOBIN 28.6 pg (27.0-33.0); MEAN CORPUSCULAR VOLUME 86.6 fl (80.0-96.0); PLATELET COUNT, AUTOMATED 314 10^3/uL (150-450); RED BLOOD COUNT 3.43 10^6/uL (4.00-5.40); WHITE BLOOD COUNT 12.9 10^3/uL (4.0-10.0)
[2018-06-22 07:01] LABS: HEMOGLOBIN A1c 9.9 %
[2018-06-22 07:03] LABS: BLOOD UREA NITROGEN 30 MG/DL (7-18); CALCIUM LEVEL 8.9 MG/DL (8.5-10.1); CARBON DIOXIDE LEVEL 18 MEQ/L (21-32); CHLORIDE LEVEL 109 MEQ/L (98-107); GLOMERULAR FILTRATION RATE 52.4 (>58); GLUCOSE, FASTING 302 MG/DL (70-100); POTASSIUM SERUM 3.8 MEQ/L (3.5-5.1); SODIUM LEVEL 140 MEQ/L (136-145); TROPONIN I < 0.02 NG/ML (< 0.10)
--- NOTE | 2018-06-22 08:51 | ECGEPIP ---
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
[2018-06-22] MEDS: HumaLOG INSULIN (NovoLOG) PER UNIT SC SCH ×3 (09:04→17:30)
[2018-06-22] MEDS ORDERED: NITROGLYCERIN 0.4 MG SUBL TABLET SL STA (12:18)
[2018-06-22] MEDS ORDERED: D5W 1,000 ML IV SCH (12:19)
[2018-06-22 12:23] VITALS: BP 138/83
[2018-06-22 12:29] VITALS: BP 138/83
[2018-06-22] MEDS ORDERED: PANTOPRAZOLE 40MG INJ (PROTONIX) (C9113) IV ONE (12:30)
[2018-06-22] MEDS ORDERED: NITROGLYCERIN 0.4 MG SUBL TABLET SL PRN (12:30)
[2018-06-22] MEDS ORDERED: GI COCKTAIL 50ML BTL(HYOSCYAMINE/MAALOX/LIDOCAINE VISCOUS)(1:3:1) PO ONE (12:30)
[2018-06-22] MEDS ORDERED: GI COCKTAIL 50ML BTL(HYOSCYAMINE/MAALOX/LIDOCAINE VISCOUS)(1:3:1) PO PRN (12:30)
[2018-06-22 13:38] LABS: CPK CREATINE PHOSPHOKINASE 184 U/L (26-192); MB/CK RELATIVE INDEX 0.54 (< OR =4); MYOGLOBIN 52 NG/ML (13-71); TROPONIN I < 0.02 NG/ML (< 0.10)
[2018-06-22 14:00] VITALS: BP 120/69
[2018-06-22] MEDS ORDERED: ALPRAZolam 0.5 MG TAB PO ONE (14:15)
--- NOTE | 2018-06-22 14:56 | IPNPDOC ---
Date Seen The patient was seen on 06/22/18. Progress Note SUBJECTIVE: c/o chest heaviness for about 30 minutes relieved with nitroglycerin. no diaphoresis EKG pending. no palpitations, nausea, vomiting. some sob. no cough or fever no c/o dysphagia, or odynophagia. PHYSICAL EXAMINATION: General: She appears well nourished, nontoxic appearing, in no apparent distress. Head is normocephalic, atraumatic Eyes: Extraocular movements are intact. Pupils equal, round, reactive to light. Neck is supple. No jugular venous pressure (JVP). Lungs: Clear to auscultation. No crackles, wheezes. Cardiovascular: Regular rate and rhythm. Normal S1, S2. No murmurs, gallops, or rubs. Abdomen: Soft. It is nontender, nondistended. There is no rebound, no guarding, positive bowel sounds. Extremities: No pitting edema or calf tenderness. Skin: Intact. No rashes, lesions, or breakdown. Neurological: Alert and oriented times three. No focal deficits. LABS AND IMAGING PLS SEE BELOW Imaging completed in the emergency room. CT of the abdomen and pelvis reviewed, is unremarkable. CT of the chest also unremarkable. Chest x-ray is unremarkable. ASSESSMENT AND PLAN: The patient is a 47-year-old female with significant past medical history of insulin-dependent diabetes. She is on 70-30 sliding scale at home. She presents to the emergency room with two days of abdominal pain associated with multiple episodes of nonbloody, non bilious vomiting. She states she checked her fingersticks at home, and it was in the 400s. She said on presentation to the emergency room, fingerstick was also in the 400s, on BMP was 374. The first fingerstick collected in the emergency room was 165. She denies any cough, fevers, chills, urinary symptoms, constipation or diarrhea. She is very nontoxic appearing in the emergency room. She states that she also feels a sensation of an elephant sitting on her chest. She has already had two troponins which have been negative, and this chest pain is noncardiac. This has been constant for the last 48 hours. Chest pain troponins have been negative. cycle EKG and card saleh for persistent symptoms VQ scan and d-dimer to rule out PE, and UGI series to rule out hiatal hernia, PUD as well as trial of nitroglycerin, GI cocktail, PPI bid. 2dEcho for chest pain.; check lipid profile. IDDM with mild metabolic acidosis check ketones.on levemir with holding parameters. ivfluids abd pain with occasional n/v r/o dka, check ketones prn gi cocktail. PPI bid. dvt prophylaxis: compression stockings. VS, I&O, 24H, Fishbone Vital Signs/I&O Vital Signs Date Time Temp Pulse Resp B/P (MAP) Pulse Ox O2 Delivery O2 Flow Rate FiO2 06/22/18 06:00 97.5 92 20 151/90 (110) 96 06/22/18 00:00 Room Air I&O- Last 24 Hours up to 6 AM0 06/22/18 05:59 Intake Total 480 ml Output Total 0 ml Balance 480 ml Laboratory Data 24H LABS Laboratory Tests 2 06/21/18 13:39: Immature Granulocyte % (Auto) 0.4, White Blood Count 10.7H, Red Blood Count 3.83L, Hemoglobin 11.1L, Hematocrit 32.0L, Mean Corpuscular Volume 83.6, Mean Corpuscular Hemoglobin 29.0, Mean Corpuscular Hemoglobin Concent 34.7, Red Cell Distribution Width 14.7H, Platelet Count 381, Neutrophils (%) (Auto) 80.5H, Lymphocytes (%) (Auto) 12.8L, Monocytes (%) (Auto) 5.7H, Eosinophils (%) (Auto) 0.1, Basophils (%) (Auto) 0.5, Neutrophils # (Auto) 8.7H, Lymphocytes # (Auto) 1.4L, Monocytes # (Auto) 0.6, Eosinophils # (Auto) 0.0, Basophils # (Auto) 0.1, Nucleated Red Blood Cells % (auto) 0.0, Erythrocyte Sedimentation Rate 60H, Blood Gas Bicarbonate Standard 24.2, Venous Blood pH 7.506H, Venous Blood Partial Pressure CO2 28.0L, Venous Blood Partial Pressure O2 97.9H, Venous Blood Total Carbon Dioxide 22.5L, Venous Blood HCO3 21.6L, Venous Blood Oxygen Saturation 97.9H, Venous Blood Base Excess -0.4, Anion Gap 16, Glomerular Filtration Rate 34.8L, Calcium Level 10.2H, Aspartate Amino Transf (AST/SGOT) 26, Alanine Aminotransferase (ALT/SGPT) 25, Alkaline Phosphatase 85, Total Bilirubin 1.0, Direct Bilirubin 0.3H, Total Creatine Kinase 387H, Creatine Kinase MB 2.0, Creatine Kinase MB Relative Index 0.47, Troponin I < 0.02, C- Reactive Protein, Quantitative 4.47H, Total Protein 8.5H, Albumin 4.7, Albumin/Globulin Ratio 1.24, Lipase 125, B-Hydroxybutyrate 22.75H 06/21/18 16:11: Urine Color YELLOW, Urine Appearance CLEAR, Urine pH 6.0, Urine Specific [place] 1.026, Urine Protein 1+H, Urine Glucose (UA) 3+H, Urine Ketones 1+H, Urine Blood 3+H, Urine Nitrite NEGATIVE, Urine Bilirubin NEGATIVE, Urine Urobilinogen 0.2, Urine Leukocyte Esterase NEGATIVE, Urine WBC (Auto) 2, Urine RBC (Auto) 2, Urine Hyaline Casts (Auto) 0, Urine Bacteria (Auto) NEGATIVE, Urine Squamous Epithelial Cells 0, Urine Transitional Epithelial Cells <1, Urine Mucus (Auto) SMALL, Urine Sperm (Auto) 06/21/18 17:56: Bedside Glucose (Misc Panel) 165H 06/21/18 18:20: Total Creatine Kinase 304H, Creatine Kinase MB 1.0, Creatine Kinase MB Relative Index 0.46, Troponin I < 0.02 06/21/18 18:31: Influenza Type A (RT-PCR) NEGATIVE, Influenza Type B (RT-PCR) NEGATIVE 06/21/18 21:54: Bedside Glucose (Misc Panel) 138H 06/21/18 23:29: Lactic Acid Level 0.8 06/22/18 01:47: Bedside Glucose (Misc Panel) 176H 06/22/18 06:00: Nucleated Red Blood Cells % (auto) 0.0, Anion Gap 13, Glomerular Filtration Rate 52.4L, Estimated Mean Plasma Glucose 237H, Hemoglobin A1c 9.9, Blood Urea Nitrogen 30H, Creatinine 1.40H, Sodium Level 140, Potassium Level 3.8, Chloride Level 109H, Carbon Dioxide Level 18L, Calcium Level 8.9, Troponin I < 0.02 06/22/18 10:57: Bedside Glucose (Misc Panel) 195H CBC/BMP Laboratory Tests 06/21/18 13:39 Red Blood Count 3.83 L, Mean Corpuscular Volume 83.6, Mean Corpuscular Hemoglobin 29.0, Mean Corpuscular Hemoglobin Concent 34.7, Red Cell Distribution Width 14.7 H, Neutrophils (%) (Auto) 80.5 H, Lymphocytes (%) (Auto) 12.8 L, Monocytes (%) (Auto) 5.7 H, Eosinophils (%) (Auto) 0.1, Basophils (%) (Auto) 0.5, Neutrophils # (Auto) 8.7 H, Lymphocytes # (Auto) 1.4 L, Monocytes # (Auto) 0.6, Eosinophils # (Auto) 0.0, Basophils # (Auto) 0.1 06/22/18 06:00 Red Blood Count 3.43 L, Mean Corpuscular Volume 86.6, Mean Corpuscular Hemoglobin 28.6, Mean Corpuscular Hemoglobin Concent 33.0, Red Cell Distribution Width 15.2 H, Calcium Level 8.9 Microbiology Microbiology 06/21/18 Blood Culture, Received Pending 06/21/18 Blood Culture, Received Pending PRECIOUS ROSE MD Jun 22, 2018 12:10
--- NOTE | 2018-06-22 15:45 | REP ---
Ventilation-perfusion lung scan: History: Atypical chest pain. Shortness of breath. Comparison chest x-ray is from June 21, 2018. Comparison CT study is from June 21, 2018. Technique: 1.0 mCi technetium 99m DTPA is utilized for the aerosol and a ventilation study. This is followed by 5.5 mCi technetium-99m MAA intravenous dose. A total of eight planar images are acquired for each portion of the study. Scintigraphic findings: The perfusion study is normal. No perfusion defect is seen. Ventilation study shows minimal central bronchial deposition of tracer but is otherwise unremarkable. Impression: Normal ventilation perfusion lung scan. No scintigraphic evidence of pulmonary embolus. Electronically Signed by Nathaniel Weaver MD 06/22/2018 07:52 P
[2018-06-22] MEDS ORDERED: NS 1,000 ML IV ONE (16:15)
[2018-06-22 18:57] LABS: ALBUMIN 3.7 GM/DL (3.2-5.2); ALT/SGPT 21 U/L (12-78); AMYLASE 33 U/L (25-115); BILIRUBIN,DIRECT 0.2 MG/DL (0.0-0.2); BILIRUBIN,TOTAL 0.9 MG/DL (0.2-1.0); BLOOD UREA NITROGEN 25 MG/DL (7-18); C REACTIVE PROTEIN QUANTITATIV 3.11 MG/DL (0.00-0.30); CALCIUM LEVEL 8.4 MG/DL (8.5-10.1); CARBON DIOXIDE LEVEL 17 MEQ/L (21-32); CHLORIDE LEVEL 108 MEQ/L (98-107); CK-MB VALUE MASS < 1.0 NG/ML (<3.6); CPK CREATINE PHOSPHOKINASE 190 U/L (26-192); CREATININE FOR GFR 1.24 MG/DL (0.55-1.30); GLOMERULAR FILTRATION RATE > 60.0 (>58); GLUCOSE, FASTING 243 MG/DL (70-100); LIPASE 89 U/L (73-393); MB/CK RELATIVE INDEX 0.53 (< OR =4); POTASSIUM SERUM 4.9 MEQ/L (3.5-5.1); SODIUM LEVEL 136 MEQ/L (136-145); TOTAL PROTEIN 6.9 GM/DL (6.4-8.2); TROPONIN I < 0.02 NG/ML (< 0.10)
[2018-06-22] MEDS: PANTOPRAZOLE 40MG INJ (PROTONIX) (C9113) IV SCH (20:15)
[2018-06-22] MEDS: MORPHINE 4 MG/ML 1ML VIAL/SYRINGE (J2270) IV PRN (20:16)
[2018-06-22] MEDS: LEVEMIR (INSULIN DETEMIR) 1 UNITS/0.01ML SC SCH (20:16)
[2018-06-22 22:00] VITALS: BP 110/63
--- NOTE | 2018-06-23 01:04 | ECGEPIP ---
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
[2018-06-23] MEDS: ONDANSETRON 4MG/2ML VIAL (J2405) IV PRN ×3 (04:31→22:16)
[2018-06-23] MEDS: MORPHINE 4 MG/ML 1ML VIAL/SYRINGE (J2270) IV PRN ×2 (05:30→20:28)
[2018-06-23] MEDS: HEPARIN SOD (PORCINE) 5000 UNITS/ML VIAL SC SCH ×3 (05:30→22:16)
[2018-06-23 06:00] VITALS: BP 163/85
[2018-06-23] MEDS ORDERED: D5W 1,000 ML IV SCH (06:00)
[2018-06-23 06:42] LABS: HEMATOCRIT 25.8 % (36.0-47.0); HEMOGLOBIN 8.5 g/dl (12.0-15.5); MEAN CORPUSCULAR HEMOGLOBIN 28.5 pg (27.0-33.0); MEAN CORPUSCULAR HGB CONC 32.9 g/dl (32.0-36.5); MEAN CORPUSCULAR VOLUME 86.6 fl (80.0-96.0); PLATELET COUNT, AUTOMATED 268 10^3/uL (150-450); RED BLOOD COUNT 2.98 10^6/uL (4.00-5.40); WHITE BLOOD COUNT 7.1 10^3/uL (4.0-10.0)
[2018-06-23] MEDS ORDERED: NS 1,000 ML IV ONE (07:00)
[2018-06-23] MEDS ORDERED: LEVEMIR (INSULIN DETEMIR) 1 UNITS/0.01ML SC ONE (07:00)
[2018-06-23] MEDS ORDERED: SODIUM BICARBONATE 325 MG TAB PO ONE (07:00)
[2018-06-23 07:12] LABS: CALCIUM LEVEL 8.6 MG/DL (8.5-10.1); CHOLESTEROL RISK RATIO 2.391 (<5); CREATININE FOR GFR 1.27 MG/DL (0.55-1.30); GLOMERULAR FILTRATION RATE 58.7 (>58); POTASSIUM SERUM 3.3 MEQ/L (3.5-5.1)
[2018-06-23] MEDS: HumaLOG INSULIN (NovoLOG) PER UNIT SC SCH ×3 (07:30→18:01)
[2018-06-23] MEDS ORDERED: KCL 40MEQ IN D5/0.45NS 1000ML 1,000 ML IV SCH ×2 (07:30→11:45)
[2018-06-23] MEDS ORDERED: PERCOCET 5MG/325MG TAB PO ONE (07:45)
[2018-06-23] MEDS ORDERED: diphenhydrAMINE INJ 50MG/ML VIAL (J1200) IV ONE (07:45)
[2018-06-23] MEDS: PANTOPRAZOLE 40MG INJ (PROTONIX) (C9113) IV SCH ×2 (07:54→20:28)
[2018-06-23] MEDS: METOCLOPRAMIDE INJ 10MG/2ML VIAL (J2765) IV SCH ×3 (07:59→19:48)
[2018-06-23] MEDS ORDERED: KETOROLAC 30 MG/ML VIAL (J1885) IV ONE (08:00)
[2018-06-23] MEDS: DEXTROSE 50% 50 ML SYRINGE IV PRN (08:14)
[2018-06-23 10:23] LABS: ACETONE/KETONE 16.49 MG/DL (<2.81)
[2018-06-23] MEDS ORDERED: E-Z-HD 98% w/w 340GM SUSP BTL As Ordered ONE (11:08)
[2018-06-23] MEDS ORDERED: E-Z-GAS II EFFERVESCENT PACKET (SODIUM BICARB./CITRIC ACID/SIMETHICONE) As Ordered ONE (11:08)
[2018-06-23] MEDS ORDERED: E-Z-PAQUE 96% w/w SUSP 176GM BTL As Ordered ONE (11:08)
[2018-06-23 13:15] LABS: CALCIUM LEVEL 7.8 MG/DL (8.5-10.1); CREATININE FOR GFR 1.25 MG/DL (0.55-1.30); GLOMERULAR FILTRATION RATE 59.8 (>58); POTASSIUM SERUM 3.8 MEQ/L (3.5-5.1)
[2018-06-23 14:00] VITALS: BP 126/81
[2018-06-23 17:58] LABS: BLOOD UREA NITROGEN 16 MG/DL (7-18); CARBON DIOXIDE LEVEL 23 MEQ/L (21-32); CHLORIDE LEVEL 108 MEQ/L (98-107); CREATININE FOR GFR 1.22 MG/DL (0.55-1.30); GLOMERULAR FILTRATION RATE > 60.0 (>58); GLUCOSE, FASTING 213 MG/DL (70-100); POTASSIUM SERUM 3.8 MEQ/L (3.5-5.1); SODIUM LEVEL 137 MEQ/L (136-145)
[2018-06-23 18:00] VITALS: BP 127/78
--- NOTE | 2018-06-23 19:28 | IPNPDOC ---
Date Seen The patient was seen on 06/23/18. Progress Note SUBJECTIVE: Pt had mild DKA with metabolic acidosis and persistent ketones resolved with insulin, ivfluids. Despite c/o chest heaviness lasting about 30min yesterday and resolving with nitroglycerin, card saleh were negative. Pt refused UGI series today to rule out GI pathology that may be causing her discomfort. She denies any cough, sob, fever or chills overnight. She continues to have decreased appetite. VQ scan was negative for PE, CT chest abd/pelvis were all negative. She is on PRN GI cocktail, and nitro. Echo is pending. She may benefit from outpt stress test and GI workup. PHYSICAL EXAMINATION: General: She appears well nourished, nontoxic appearing, in no apparent distre ss. Head is normocephalic, atraumatic Eyes: Extraocular movements are intact. Pupils equal, round, reactive to light. Neck is supple. No jugular venous pressure (JVP). Lungs: Clear to auscultation. No crackles, wheezes. Cardiovascular: Regular rate and rhythm. Normal S1, S2. No murmurs, gallops, or rubs. Abdomen: Soft. diffuse tenderness nondistended. There is no rebound, no guarding, positive bowel sounds. Extremities: No pitting edema or calf tenderness. Skin: Intact. No rashes, lesions, or breakdown. Neurological: Alert and oriented times three. No focal deficits. LABS AND IMAGING PLS SEE BELOW Imaging completed in the emergency room. CT of the abdomen and pelvis reviewed, is unremarkable. CT of the chest also unremarkable. Chest x-ray is unremarkable. ASSESSMENT AND PLAN: The patient is a 47-year-old female with significant past medical history of insulin-dependent diabetes. She is on 70-30 sliding scale at home. She presents to the emergency room with two days of abdominal pain associated with multiple episodes of nonbloody, non bilious vomiting. She states she checked her fingersticks at home, and it was in the 400s. She said on presentation to the emergency room, fingerstick was also in the 400s, on BMP was 374. The first fingerstick collected in the emergency room was 165. She denies any cough, fevers, chills, urinary symptoms, constipation or diarrhea. She is very nontoxic appearing in the emergency room. She states that she also feels a sensation of an elephant sitting on her chest. She has already had two troponins which have been negative, and this chest pain is noncardiac. This has been constant for the last 48 hours. Chest heaviness troponins have been negative. cycled EKG and card saleh due to persistent symptoms VQ scan ruled out PE, and pt refused UGI series to rule out hiatal hernia, PUD trial of nitroglycerin, GI cocktail, PPI bid. 2dEcho for chest pain.; reviewed lipid profile. pt will need outpt stress test, gi workup. mild DKA, resolved with episodes of hypoglycemia despite d5 iv metabolic acidosis has resolved. Persistent abdominal pain may be due to mild DKA which is now resolved will r/o PNH and check urine hemosiderin or CTA CT abd pelvis negative. dvt prophylaxis: compression stockings. VS, I&O, 24H, Fishbone Vital Signs/I&O Vital Signs Date Time Temp Pulse Resp B/P (MAP) Pulse Ox O2 Delivery O2 Flow Rate FiO2 06/23/18 18:00 97.4 83 18 127/78 (94) 100 06/22/18 00:00 Room Air I&O- Last 24 Hours up to 6 AM 06/23/18 06:00 Intake Total 3900 ml Output Total 970 ml Balance 2930 ml Laboratory Data 24H LABS Laboratory Tests 2 06/22/18 21:06: Bedside Glucose (Misc Panel) 330H 06/22/18 23:15: Urine Ketones 1+H 06/23/18 06:06: Nucleated Red Blood Cells % (auto) 0.0, Anion Gap 8, Glomerular Filtration Rate 58.7, Calcium Level 8.6, Triglycerides Level 53, LDL Cholesterol 85, Total Cholesterol 165, Non-HDL Cholesterol (LDL + VLDL) 96, Total HDL Cholesterol 69, Cholesterol/HDL Ratio 2.391, B-Hydroxybutyrate 16.49H 06/23/18 08:02: Bedside Glucose (Misc Panel) 56L 06/23/18 10:05: Bedside Glucose (Misc Panel) 140H 06/23/18 12:09: Bedside Glucose (Misc Panel) 123H 06/23/18 12:45: Anion Gap 4L, Glomerular Filtration Rate 59.8, Blood Urea Nitrogen 16, Creatinine 1.25, Sodium Level 140, Potassium Level 3.8, Chloride Level 112H, Carbon Dioxide Level 24, Calcium Level 7.8L 06/23/18 15:59: Bedside Glucose (Misc Panel) 157H 06/23/18 17:04: Anion Gap 6L, Glomerular Filtration Rate > 60.0, Blood Urea Nitrogen 16, Creatinine 1.22, Sodium Level 137, Potassium Level 3.8, Chloride Level 108H, Carbon Dioxide Level 23, Calcium Level 8.0L 06/23/18 17:57: Bedside Glucose (Misc Panel) 224H CBC/BMP Laboratory Tests 06/23/18 06:06 Red Blood Count 2.98 L, Mean Corpuscular Volume 86.6, Mean Corpuscular Hemoglobin 28.5, Mean Corpuscular Hemoglobin Concent 32.9, Red Cell Distribution Width 14.6 H 06/23/18 12:45 Calcium Level 7.8 L 06/23/18 17:04 Calcium Level 8.0 L Microbiology Microbiology 06/21/18 Blood Culture - Preliminary, Resulted No Growth after 48 hours. All Specime... 06/21/18 Blood Culture - Preliminary, Resulted No Growth after 48 hours. All Specime... PRECIOUS ROSE MD Jun 23, 2018 19:28
[2018-06-23 20:39] LABS: ALBUMIN 3.1 GM/DL (3.2-5.2); BILIRUBIN,TOTAL 0.3 MG/DL (0.2-1.0); CALCIUM LEVEL 8.3 MG/DL (8.5-10.1); CREATININE FOR GFR 1.25 MG/DL (0.55-1.30); GLOMERULAR FILTRATION RATE 59.8 (>58); POTASSIUM SERUM 3.8 MEQ/L (3.5-5.1); TOTAL PROTEIN 5.8 GM/DL (6.4-8.2)
[2018-06-23 20:55] LABS: HEMOGLOBIN A1c 10.2 %
[2018-06-23] MEDS: LEVEMIR (INSULIN DETEMIR) 1 UNITS/0.01ML SC SCH (21:00)
[2018-06-23] MEDS ORDERED: POTASSIUM CHLORIDE INJ 40 MEQ in NS 0.45% 1,000 ML IV SCH (21:30)
[2018-06-23 22:00] VITALS: BP 145/84
[2018-06-24] MEDS: DEXTROSE 50% 50 ML SYRINGE IV PRN (02:28)
[2018-06-24] MEDS: METOCLOPRAMIDE INJ 10MG/2ML VIAL (J2765) IV SCH ×3 (02:28→13:22)
[2018-06-24] MEDS ORDERED: KCL 40MEQ IN D5/0.45NS 1000ML 1,000 ML IV SCH (02:30)
[2018-06-24 06:00] VITALS: BP 138/74
[2018-06-24] MEDS: ONDANSETRON 4MG/2ML VIAL (J2405) IV PRN (06:20)
[2018-06-24] MEDS: HEPARIN SOD (PORCINE) 5000 UNITS/ML VIAL SC SCH ×2 (06:20→13:22)
[2018-06-24 06:27] LABS: HEMATOCRIT 25.9 % (36.0-47.0); HEMOGLOBIN 8.6 g/dl (12.0-15.5); MEAN CORPUSCULAR HEMOGLOBIN 28.7 pg (27.0-33.0); MEAN CORPUSCULAR HGB CONC 33.2 g/dl (32.0-36.5); MEAN CORPUSCULAR VOLUME 86.3 fl (80.0-96.0); PLATELET COUNT, AUTOMATED 250 10^3/uL (150-450); WHITE BLOOD COUNT 7.8 10^3/uL (4.0-10.0)
[2018-06-24 06:49] LABS: BLOOD UREA NITROGEN 11 MG/DL (7-18); CALCIUM LEVEL 8.5 MG/DL (8.5-10.1); CARBON DIOXIDE LEVEL 18 MEQ/L (21-32); CHLORIDE LEVEL 106 MEQ/L (98-107); CREATININE FOR GFR 1.19 MG/DL (0.55-1.30); GLOMERULAR FILTRATION RATE > 60.0 (>58); GLUCOSE, FASTING 281 MG/DL (70-100); POTASSIUM SERUM 4.5 MEQ/L (3.5-5.1); SODIUM LEVEL 136 MEQ/L (136-145)
[2018-06-24] MEDS ORDERED: ALPRAZolam 0.5 MG TAB PO ONE (07:45)
[2018-06-24] MEDS ORDERED: KETOROLAC 30 MG/ML VIAL (J1885) IV ONE (07:45)
[2018-06-24] MEDS: PANTOPRAZOLE 40MG INJ (PROTONIX) (C9113) IV SCH (08:54)
[2018-06-24] MEDS: HumaLOG INSULIN (NovoLOG) PER UNIT SC SCH ×2 (08:54→11:37)
[2018-06-24] MEDS ORDERED: PRIL20TA2 PO (13:39)
[2018-06-24] MEDS ORDERED: REGL5TAB2 PO (13:39)
[2018-06-24] MEDS ORDERED: NITR0.4S14 SL (13:39)
[2018-06-24] MEDS ORDERED: ASPI81TA85 PO (13:42)
[2018-06-24] MEDS ORDERED: ZOCO20TA PO (13:42)
[2018-06-24] MEDS ORDERED: INSUDET SC (18:59)
--- NOTE | 2018-06-24 19:05 | DS.PDOC ---
Discharge Summary General Date of Admission Jun 21, 2018 Date of Discharge June 24, 2018 Discharge Summary PT WAS ADAMANT ABOUT BEING DISCHARGED. DUE TO FAMILY ISSUES AT HOME. DISCHARGE DIAGNOSES: Mild Diabetic Ketoacidosis Chest Heaviness, ruled out NE, ruled out PE Uncontrolled DM A1c 10 Metabolic acidosis due to mild DKA HISTORY OF PRESENTING ILLNISS: The patient is a 47-year-old female with significant past medical history of insulin-dependent diabetes. She is on 70-30 sliding scale at home. She presents to the emergency room with two days of abdominal pain associated with multiple episodes of nonbloody, non bilious vomiting. She states she checked her fingersticks at home, and it was in the 400s. She said on presentation to the emergency room, fingerstick was also in th e 400s, on BMP was 374. The first fingerstick collected in the emergency room was 165. She denies any cough, fevers, chills, urinary symptoms, constipation or diarrhea. She is very nontoxic appearing in the emergency room. She states that she also feels a sensation of an elephant sitting on her chest. She has already had two troponins which have been negative, and this chest pain is noncardiac. This has been constant for the last 48 hours. HOSPITAL COURSE: Chest heaviness troponins have been negative. cycled EKG and card saleh due to persistent symptoms VQ scan ruled out PE, and pt refused UGI series to rule out hiatal hernia, PUD trial of nitroglycerin, GI cocktail, PPI bid. 2dEcho for chest pain.; reviewed lipid profile. pt will need outpt stress test, gi workup. mild DKA, resolved with episodes of hypoglycemia despite d5 iv needed basal insulin and short acting metabolic acidosis has resolved. will need immediate fu with pcp for closer monitoring. Persistent abdominal pain due to mild DKA which is now resolved will r/o PNH and check urine hemosiderin or CTA CT abd pelvis negative. dvt prophylaxis: compression stockings. DISCHARGE PHYSICAL EXAMINATION: General: She appears well nourished, nontoxic appearing, in no apparent distress. Head is normocephalic, atraumatic Eyes: Extraocular movements are intact. Pupils equal, round, reactive to light. Neck is supple. No jugular venous pressure (JVP). Lungs: Clear to auscultation. No crackles, wheezes. Cardiovascular: Regular rate and rhythm. Normal S1, S2. No murmurs, gallops, or rubs. Abdomen: Soft. diffuse tenderness nondistended. There is no rebound, no guarding, positive bowel sounds. Extremities: No pitting edema or calf tenderness. Skin: Intact. No rashes, lesions, or breakdown. Neurological: Alert and oriented times three. No focal deficits. DISCHARGE LABS, MICROBIOLOGY AND IMAGING PLS SEE BELOW TIME SPENT ON DISCHARGE: 30 min Vital Signs/I&Os Vital Signs Date Time Temp Pulse Resp B/P (MAP) Pulse Ox O2 Delivery O2 Flow Rate FiO2 06/24/18 06:00 97.4 76 20 138/74 (95) 98 06/22/18 00:00 Room Air I&O- Last 24 Hours up to 6 AM 06/24/18 06:00 Intake Total 2020 ml Output Total 1550 ml Balance 470 ml Laboratory Data Labs 24H Laboratory Tests 2 06/23/18 20:00: Reticulocyte # (auto) 29.1, Percent Reticulocyte Count 1.0, Reticulocyte Hemoglobin Equivalent 34.0, Anion Gap 7L, Glomerular Filtration Rate 59.8, Estimated Mean Plasma Glucose 246H, Hemoglobin A1c 10.2, Blood Urea Nitrogen 15, Creatinine 1.25, Sodium Level 139, Potassium Level 3.8, Chloride Level 110H, Carbon Dioxide Level 22, Calcium Level 8.3L, Aspartate Amino Transf (AST/SGOT) 18, Alanine Aminotransferase (ALT/SGPT) 20, Lactate Dehydrogenase 189, Alkaline Phosphatase 62, Total Bilirubin 0.3#, Total Protein 5.8L, Albumin 3.1L, Albumin/Globulin Ratio 1.15 06/23/18 20:42: Bedside Glucose (Misc Panel) 93 06/23/18 22:36: 06/24/18 02:16: Bedside Glucose (Misc Panel) 58L 06/24/18 02:56: Bedside Glucose (Misc Panel) 147H 06/24/18 06:00: Nucleated Red Blood Cells % (auto) 0.0, Anion Gap 12, Glomerular Filtration Rate > 60.0, Blood Urea Nitrogen 11, Creatinine 1.19, Sodium Level 136, Potassium Level 4.5, Chloride Level 106, Carbon Dioxide Level 18L, Calcium Level 8.5 06/24/18 06:03: Bedside Glucose (Misc Panel) 267H 06/24/18 10:12: Bedside Glucose (Misc Panel) 219H CBC/BMP Laboratory Tests 06/23/18 20:00 Calcium Level 8.3 L, Aspartate Amino Transf (AST/SGOT) 18, Alanine Aminotransferase (ALT/SGPT) 20, Lactate Dehydrogenase 189, Alkaline Phosphatase 62, Total Bilirubin 0.3 #, Total Protein 5.8 L, Albumin 3.1 L 06/24/18 06:00 Calcium Level 8.5, Red Blood Count 3.00 L, Mean Corpuscular Volume 86.3, Mean Corpuscular Hemoglobin 28.7, Mean Corpuscular Hemoglobin Concent 33.2, Red Cell Distribution Width 14.4 FSBS Laboratory Tests Test 06/23/18 20:42 06/24/18 02:16 06/24/18 02:56 06/24/18 06:03 Range/Units Bedside Glucose (Misc Panel) 93 58 147 267 70-105 MG/DL Test 06/24/18 10:12 Range/Units Bedside Glucose (Misc Panel) 219 70-105 MG/DL Microbiology Microbiology 06/21/18 Blood Culture - Preliminary, Resulted No Growth after 72 hours. All specime... 06/21/18 Blood Culture - Preliminary, Resulted No Growth after 72 hours. All specime... Discharge Medications Scheduled (Hair/Skin/Nails 1250-7.5-7.5 Mcg-mg-Unt) 1 Chw Chw, 2 CHW PO DAILY, (Reported) Aspirin (Aspir-81) 81 Mg Tab, 81 MG PO DAILY for pain Insulin Detemir (Levemir) 1 Units/0.01 Ml Susp, 10 UNITS SC QHS Insulin Human Isophan/Regular (Novolin 70/30 Relion (70-30) 100 Unit/ml) 1 Inj Inj, 1 DOSE SC BID, (Reported) PER SLIDING SCALE Metoclopramide Hcl (Reglan) 5 Mg Tab, 5 MG PO ACHS Omeprazole Magnesium (Prilosec Otc) 20 Mg Tab, 20 MG PO DAILY Simvastatin (Zocor) 20 Mg Tab, 20 MG PO QPM Scheduled PRN Nitroglycerin (Nitroglycerin) 0.4 Mg Sub, 0.4 MG SL Q5MP PRN for chest pain Allergies Coded Allergies: No Known Allergies (Verified , 12/14/02) PRECIOUS ROSE MD Jun 24, 2018 18:42
== END 2018-06-24 14:45 | disposition home or self-care (01) | DRG 420 ==
LOC: M ED 12:45 → M ED INP 22:42 → M MS5PR 06-22 02:05 → OBSVTOIN 06-22 14:47
PROVIDERS: ADMIT Internal Medicine; ATTEND General Practice
DX: E11.10 Type 2 diabetes mellitus with ketoacidosis without coma (principal); N17.9 Acute kidney failure, unspecified; E11.65 Type 2 diabetes mellitus with hyperglycemia; Z79.4 Long term (current) use of insulin; R07.9 Chest pain, unspecified

== ENCOUNTER 2018-06-28 13:18 | Emergency (ER) | payer OTHER ==
[~2018-06-28] VITALS: Ht 170.2 cm; Wt 68.2 kg
[~2018-06-28 13:18] MED LIST changes: -/INSU7030; -/ONDA4TA PO; -/PANT40TA; +ASPI81TA85 PO; +HAIR1CHW2 PO; +INSUDET SC; -NAPR-50 PO; +NAPR-837 PO; +NICO14DI20 EXT; -NICO14PA EXT; +NITR0.4S14 SL; +NOVO1INJ4; +ONDA-1 PO; +ONDA-227; +PRIL20TA2 PO; +PROM-190 PO; -PROM25TA PO; +PROT1TAB2; +REGL5TAB2 PO; +ZOCO20TA PO; -ZOFR8TAB
[2018-06-28 15:13] LABS: BASO % 0.6 % (0.0-1.0); EOS # 0.1 10^3/uL (0.0-0.50); EOS % 1.1 % (0.0-3.0); HEMATOCRIT 29.6 % (36.0-47.0); HEMOGLOBIN 10.2 g/dl (12.0-15.5); LYMPH # 1.2 10^3/uL (1.5-4.5); MEAN CORPUSCULAR HEMOGLOBIN 29.4 pg (27.0-33.0); MEAN CORPUSCULAR HGB CONC 34.5 g/dl (32.0-36.5); MEAN CORPUSCULAR VOLUME 85.3 fl (80.0-96.0); MONO # 0.5 10^3/uL (0.0-0.8); MONO % 7.3 % (0.0-5.0); NEUTROPHILS # 4.5 10^3/uL (1.8-7.7); NEUTROPHILS % 71.7 % (36.0-66.0); PLATELET COUNT, AUTOMATED 283 10^3/uL (150-450); RED BLOOD COUNT 3.47 10^6/uL (4.00-5.40); WHITE BLOOD COUNT 6.3 10^3/uL (4.0-10.0)
[2018-06-28] MEDS ORDERED: ONDANSETRON 4MG/2ML VIAL (J2405) IV ONE (15:15)
[2018-06-28] MEDS ORDERED: NS 1,000 ML IV ONE (15:15)
--- NOTE | 2018-06-28 15:47 | REP ---
CT Head without contrast HISTORY: Fall COMPARISON: 10/01/2014 There is no intraparenchymal hemorrhage, acute infarct, mass or midline shift. The ventricular system is normal in appearance. There is no extra cerebral collection. There is no fracture. The visualized sinuses are clear. IMPRESSION: There is no intracranial lesion. Electronically Signed by Al Pedroza MD 06/28/2018 03:38 P
[2018-06-28 15:51] LABS: ALBUMIN 3.8 GM/DL (3.2-5.2); ALT/SGPT 19 U/L (12-78); BILIRUBIN,DIRECT < 0.1 MG/DL (0.0-0.2); BILIRUBIN,TOTAL 0.5 MG/DL (0.2-1.0); BLOOD UREA NITROGEN 18 MG/DL (7-18); CALCIUM LEVEL 9.3 MG/DL (8.5-10.1); CARBON DIOXIDE LEVEL 23 MEQ/L (21-32); CHLORIDE LEVEL 102 MEQ/L (98-107); CREATININE FOR GFR 1.23 MG/DL (0.55-1.30); GLOMERULAR FILTRATION RATE > 60.0 (>58); GLUCOSE, FASTING 136 MG/DL (70-100); LIPASE 62 U/L (73-393); POTASSIUM SERUM 4.7 MEQ/L (3.5-5.1); SODIUM LEVEL 135 MEQ/L (136-145); TOTAL PROTEIN 7.5 GM/DL (6.4-8.2)
--- NOTE | 2018-06-28 15:51 | REP ---
CT cervical spine without contrast HISTORY: Fall COMPARISON: None There is no acute fracture or subluxation. There is no disc bulge or herniation. The spinal canal and neural foramina are patent. The intervertebral discs and vertebral bodies are normal in height. A 5 mm calcification is present in the right thyroid lobe. IMPRESSION: There is no acute fracture or subluxation. Electronically Signed by Al Pedroza MD 06/28/2018 03:42 P
--- NOTE | 2018-06-28 15:55 | REP ---
CT thoracic spine without contrast. HISTORY: Fall COMPARISON : None There is no acute fracture or subluxation. There is no disc bulge or herniation. The spinal canal and neural foramina are patent. The intervertebral discs and vertebral bodies are normal in height. IMPRESSION: There is no acute fracture or subluxation. Electronically Signed by Al Pedroza MD 06/28/2018 03:45 P
--- NOTE | 2018-06-28 16:11 | REP ---
CT Lumbar Spine without contrast HISTORY: Fall COMPARISON: None There is no disc bulge or herniation at the L1-2 through L3-4 levels. The nerves exit the neural foramina without compression. A diffuse disc bulge is present at the L4-5 level. There is hypertrophy of the ligamenta flava and posterior articulating facets. These findings produce minimal central canal stenosis. The L4 nerves exit the neural foramina without compression. A diffuse disc bulge is present at the L5-L1 level. There is minimal compression of the thecal sac. There is hypertrophy of the posterior articulating facets. There is compression of the right L5 nerve in the neural foramen. The left L5 nerve exits the neural foramen without compression. The lumbar intervertebral discs and vertebral bodies are normal in height. There is no fracture or subluxation. IMPRESSION: 1. Minimal central canal stenosis at the L4-5 level secondary to disc bulge, ligamentous and facet hypertrophy. 2. Diffuse disc bulge at the L5-L1 level with minimal thecal sac compression. There is compression of the right L5 nerve in the neural foramen. Electronically Signed by Al Pedroza MD 06/28/2018 04:02 P
[2018-06-28] MEDS ORDERED: KETOROLAC 30 MG/ML VIAL (J1885) IV ONE (16:30)
[2018-06-28] MEDS ORDERED: ZOFR4TAB16 PO (17:42)
[2018-06-28 18:21] VITALS: BP 138/79
[2018-06-29] MEDS ORDERED: PRED20TA PO (13:54)
[2018-06-29] MEDS ORDERED: AVEL1TAB3 PO (13:54)
[2018-06-29] MEDS ORDERED: METO5TAB2 PO (17:08)
[2018-06-29] MEDS ORDERED: BASA100I SC (17:08)
[2018-06-29] MEDS ORDERED: ASPI81TA26 PO (17:08)
[2018-06-29] MEDS ORDERED: ZOFR4TAB16 PO (17:10)
[2018-06-29] MEDS ORDERED: OMEP20CA3 PO (17:10)
[2018-06-29] MEDS ORDERED: NITR4TASL SL (17:10)
[2018-06-29] MEDS ORDERED: SIMV20TA2 PO (17:10)
[2018-07-07] MEDS ORDERED: [UNRECOGNIZED DRUG - OTHER] SC (10:59)
[2018-07-07] MEDS ORDERED: BD I1MIS10 SC (10:59)
== END 2018-06-28 18:48 | disposition home or self-care (01) ==
LOC: M ED 13:18 → EDBD 13:18 → M ED 18:48
DX: R11.2 Nausea with vomiting, unspecified (principal); Z91.81 History of falling; M54.9 Dorsalgia, unspecified; E11.9 Type 2 diabetes mellitus without complications; E78.5 Hyperlipidemia, unspecified; K21.9 Gastro-esophageal reflux disease without esophagitis; Z87.891 Personal history of nicotine dependence; Z79.4 Long term (current) use of insulin
CPT/HCPCS: 70450; 72125; 72128; 72131; 80048; 80076; 83690; 85025; 93041; 94760; 96374; 96375; 99284; J1885; J2405

== ENCOUNTER 2018-06-29 13:17 | Inpatient (IN) | payer OTHER ==
[~2018-06-29] VITALS: Ht 170.2 cm; Wt 73.5 kg
[~2018-06-29 13:17] MED LIST changes: +/INSU7030; +/ONDA4TA PO; +/PANT40TA; +NAPR-50 PO; -NAPR-837 PO; -NICO14DI20 EXT; +NICO14PA EXT; -NOVO1INJ4; -ONDA-1 PO; -ONDA-227; -PROM-190 PO; +PROM25TA PO; -PROT1TAB2; +ZOFR4TAB16 PO; +ZOFR8TAB
[2018-06-29] MEDS ORDERED: NS 1,000 ML IV ONE ×2 (13:45→14:45)
[2018-06-29] MEDS ORDERED: PRED20TA PO (13:54)
[2018-06-29] MEDS ORDERED: AVEL1TAB3 PO (13:54)
[2018-06-29 14:22] LABS: ABG BASE EXCESS -1.4 (-2.0-2.0); ABG HCO3 15.2 MEQ/L (22.0-26.0); ABG O2 SATURATION 99.1 % (95.0-99.0); ABG PARTIAL PRESSURE O2 128.8 mmHg (75.0-100.0); ABG STANDARD HCO3 23.3 MEQ/L (22.0-26.0); ABG TOTAL CO2 15.5 MEQ/L (22.0-29.0)
[2018-06-29 14:25] LABS: ABG PARTIAL PRESSURE CO2 10.8 mmHg (35.0-45.0); ABG pH (ARTERIAL) 7.765 UNITS (7.350-7.450)
[2018-06-29] MEDS ORDERED: ONDANSETRON 4MG/2ML VIAL (J2405) IV ONE (14:45)
--- NOTE | 2018-06-29 15:00 | REP ---
CHEST: Single view. There is no evidence of acute infiltrate. No pleural effusion is seen. The heart is normal in size. The mediastinal silhouette is unremarkable. The visualized osseous structures are intact. IMPRESSION: No acute pulmonary disease. Unreviewed
[2018-06-29 15:07] LABS: BASO % 0.3 % (0.0-1.0); EOS # 0.1 10^3/uL (0.0-0.50); EOS % 1.2 % (0.0-3.0); HEMATOCRIT 25.1 % (36.0-47.0); HEMOGLOBIN 8.5 g/dl (12.0-15.5); LYMPH # 1.3 10^3/uL (1.5-4.5); LYMPH % 19.8 % (24.0-44.0); MEAN CORPUSCULAR HEMOGLOBIN 29.1 pg (27.0-33.0); MEAN CORPUSCULAR HGB CONC 33.9 g/dl (32.0-36.5); MONO # 0.4 10^3/uL (0.0-0.8); MONO % 6.6 % (0.0-5.0); NEUTROPHILS # 4.7 10^3/uL (1.8-7.7); NEUTROPHILS % 71.6 % (36.0-66.0); PLATELET COUNT, AUTOMATED 267 10^3/uL (150-450); RED BLOOD COUNT 2.92 10^6/uL (4.00-5.40); WHITE BLOOD COUNT 6.6 10^3/uL (4.0-10.0)
[2018-06-29 15:16] LABS: HCG, SERUM QUALITATIVE NEGATIVE (NEGATIVE)
[2018-06-29 15:30] LABS: ALT/SGPT 17 U/L (12-78); BLOOD UREA NITROGEN 16 MG/DL (7-18); CALCIUM LEVEL 8.7 MG/DL (8.5-10.1); CARBON DIOXIDE LEVEL 21 MEQ/L (21-32); CHLORIDE LEVEL 105 MEQ/L (98-107); CREATININE FOR GFR 1.08 MG/DL (0.55-1.30); GLOMERULAR FILTRATION RATE > 60.0 (>58); GLUCOSE, FASTING 145 MG/DL (70-100); PHOSPHORUS LEVEL 1.3 MG/DL (2.5-4.9); POTASSIUM SERUM 3.3 MEQ/L (3.5-5.1); SODIUM LEVEL 139 MEQ/L (136-145)
[2018-06-29 15:31] LABS: ALBUMIN 3.8 GM/DL (3.2-5.2); BILIRUBIN,DIRECT 0.1 MG/DL (0.0-0.2); BILIRUBIN,TOTAL 0.5 MG/DL (0.2-1.0); LIPASE 60 U/L (73-393); MAGNESIUM LEVEL 1.5 MG/DL (1.8-2.4); TOTAL PROTEIN 6.8 GM/DL (6.4-8.2)
[2018-06-29 15:39] LABS: HEMOGLOBIN A1c 9.9 %
[2018-06-29 15:42] LABS: OSMOLALITY SERUM 287 MOSM/KG (275-295)
[2018-06-29] MEDS ORDERED: MORPHINE 2 MG/ML 1ML SYRINGE (J2270) IV PRN (15:45)
[2018-06-29] MEDS ORDERED: MAG SULF 1GM/100ML (MAG RUN) 1 GM in APPROPRIATE DILUENT 1 EA IV ONE (15:45)
[2018-06-29] MEDS ORDERED: POTASSIUM CHLORIDE 10 MEQ SR TABLET PO ONE (15:45)
[2018-06-29] MEDS ORDERED: ISOVUE-370 76% 125ML VIAL (Q9967 PER ML) As Ordered ONE ×2 (16:12→18:35)
[2018-06-29 16:20] LABS: ABG BASE EXCESS -4.2 (-2.0-2.0); ABG HCO3 19.9 MEQ/L (22.0-26.0); ABG O2 SATURATION 97.1 % (95.0-99.0); ABG PARTIAL PRESSURE CO2 32.7 mmHg (35.0-45.0); ABG PARTIAL PRESSURE O2 98.9 mmHg (75.0-100.0); ABG TOTAL CO2 20.9 MEQ/L (22.0-29.0); ABG pH (ARTERIAL) 7.403 UNITS (7.350-7.450)
[2018-06-29] MEDS ORDERED: BASA100I SC (17:08)
[2018-06-29] MEDS ORDERED: METO5TAB2 PO (17:08)
[2018-06-29] MEDS ORDERED: ASPI1TAB PO (17:08)
[2018-06-29] MEDS ORDERED: SIMV20TA2 PO (17:10)
[2018-06-29] MEDS ORDERED: OMEP20CA3 PO (17:10)
[2018-06-29] MEDS ORDERED: NITR4TASL SL (17:10)
[2018-06-29] MEDS ORDERED: ZOFR4TAB16 PO (17:10)
[2018-06-29] MEDS ORDERED: KCL 20MEQ IN 100ML SWI (KRUN) 20 MEQ in APPROPRIATE DILUENT 1 EA IV ONE ×2 (17:15)
[2018-06-29 17:30] LABS: AMPHETAMINES LEVEL URINE NEGATIVE (NEGATIVE); BARBITURATES URINE NEGATIVE (NEGATIVE); BENZODIAZEPINES URINE NEGATIVE (NEGATIVE); CANNABINOIDS URINE POSITIVE (NEGATIVE); COCAINE METABOLITE URINE NEGATIVE (NEGATIVE); METHADONE URINE NEGATIVE (NEGATIVE); OPIATES URINE NEGATIVE (NEGATIVE); PHENCYCLIDINE URINE NEGATIVE (NEGATIVE)
[2018-06-29] MEDS ORDERED: GLUCAGON FOR INJ 1 MG VIAL (J1610) SC PRN (17:30)
[2018-06-29] MEDS ORDERED: DEXTROSE 50% 50 ML SYRINGE IV PRN (17:30)
[2018-06-29] MEDS ORDERED: GLUCOSE 4 GM CHEW TABLET PO PRN (17:30)
--- NOTE | 2018-06-29 17:57 | HPE ---
DATE OF ADMISSION: 06/29/2018 A 47-year-old female with past medical history of type 1 diabetes who presents to the emergency room with intractable nausea and vomiting ever since she signed against medical advice (AMA) on June 24, where her chief complaint was the exact same thing. Before she was admitted and before she was able to have any kind of workup, she signed AMA. Again, it was the same state of affairs. She has been having intermittent intractable nausea and vomiting. No diarrhea. No subjective feeling of fever, aches, or chills. She has not been around any sick contacts. She claims her last marijuana intake was 2 weeks ago. Denies any other illicit drugs. She has not drank in 2 years, and she stopped cigarette smoking approximately 2 weeks ago as well. In the emergency room (ER) she was given intravenous (IV) Zofran and fluids, and a CT scan of her abdomen is pending. She will be admitted for further management. PAST MEDICAL HISTORY: Type 1 diabetes. PAST SURGICAL HISTORY: Dilatation and curettage. ALLERGIES: No known drug allergies. FAMILY HISTORY: Noncontributory. SOCIAL HISTORY: Patient denies smoking at this time. Quit 2 weeks ago. She does not drink alcohol and no illicit drugs. She does use marijuana, which she last took 2 weeks ago. HOME MEDICATIONS: - aspirin 81 mg orally daily - isophane insulin 70/30 one dose subcutaneous twice a day - nitroglycerine sublingual as needed - omeprazole 4 mg orally three times a day as needed - simvastatin 20 mg orally at bedtime - Basalar KwikPen 10 units subcutaneous at bedtime - metoclopramide 5 mg orally before meals and at bedtime as needed REVIEW OF SYSTEMS: Negative for all10 major systems except what is mentioned in the history of present illness (HPI). VITAL SIGNS: Blood pressure is 137/81, heart rate is 111, regular, respiratory rate 20, temperature 97.9, oxygen saturation 100% on room air. HEAD: Atraumatic, normocephalic. NECK: Supple. No jugular venous distention (JVD). LUNGS: Clear to auscultation. HEART: S1, S2 audible. No murmurs appreciated. ABDOMEN: Diffuse tenderness on all quadrants on deep palpation. No rebound. Positive bowel sounds. No pedal edema. SKIN: Intact. NEUROLOGIC: Patient awake, alert, oriented times three. LABORATORY DATA: WBC 6.6, hemoglobin 8.5, hematocrit 25.1, platelets are 267,000. Sodium 139, potassium 3.3, chloride 105, CO2 of 21, anion gap 13, BUN 16, creatinine 1.08. Plasma glucose 237. Lipase is 60. Urine toxicology screen is positive for cannabis. IMPRESSION: Intractable vomiting. PLAN: Patient will be admitted to the medical/surgical flood. We will continue IV fluids, normal saline (NS) at 150 an hour. We will keep her nothing by mouth even with medications. Will put her on insulin sliding scale. She clearly lied about taking marijuana 2 weeks ago, because her urine toxicology screen is still positive. It is very possible that this could be cyclical vomiting due to the marijuana. Will await the CT scan results. Another possibility is that this patient's hemoglobin A1c is 9. She is clearly noncompliant to her diabetes, which is longstanding. She could have early signs of gastroparesis. If the CT scan is negative, and the patient's symptoms continue over the next 24 hours, we will likely get gastrointestinal (GI) on board and may have to intervene, maybe due an esophagogastroduodenoscopy (EGD) to rule out anything and then eventually likely have to, through possible elimination, rule her in as diabetic gastroparesis. Will continue her present care on the medical/surgical floor.
[2018-06-29] MEDS: KCL 10MEQ/100ML SWI (KRUN) 10 MEQ in APPROPRIATE DILUENT 1 EA IV SCH ×2 (18:07→18:30)
[2018-06-29] MEDS: NS 1,000 ML IV SCH (18:07)
[2018-06-29] MEDS: HumaLOG INSULIN (NovoLOG) PER UNIT SC SCH (18:22)
--- NOTE | 2018-06-29 19:05 | REP ---
Clinical: Abdominal pain. Technique: Axial contrast enhanced images from the lung bases to the pubic symphysis using 100 ml Isovue 370 intravenous contrast material with coronal and sagittal re-formations. Comparison: 06/21/2018. Findings: Lung bases are clear. Visualized heart and pericardium normal. Liver, spleen, pancreas, gallbladder, bilateral adrenal glands and kidneys are normal. Evaluation of the enteric system demonstrates mild mucosal thickening involving loops of small and large bowel suggesting acute enterocolitis. No bowel obstruction. No free air or drainable collection/abscess. Small amount of fluid in the pelvis is nonspecific. Pelvis demonstrates normal bladder and age-appropriate uterus/adnexa. Normal appendix identified in the right lower quadrant. No adenopathy. Abdominal aorta and vasculature normal. Musculoskeletal structures are intact. Impression: Cannot exclude mild enterocolitis. Electronically Signed by Zhang Benitez MD 06/29/2018 06:56 P
[2018-06-29] MEDS: ONDANSETRON 4MG/2ML VIAL (J2405) IV PRN (19:40)
[2018-06-29 19:55] VITALS: BP 168/95
--- NOTE | 2018-06-29 19:59 | ECGEPIP ---
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
[2018-06-29 22:49] VITALS: BP 168/95
[2018-06-30] MEDS ORDERED: KCL 10MEQ/100ML SWI (KRUN) 10 MEQ in APPROPRIATE DILUENT 1 EA IV ONE ×2
[2018-06-30] MEDS: NS 1,000 ML IV SCH ×4 (00:08→20:24)
[2018-06-30 06:00] VITALS: BP 137/78
[2018-06-30] MEDS: ONDANSETRON 4MG/2ML VIAL (J2405) IV PRN ×3 (06:13→20:23)
[2018-06-30] MEDS: HumaLOG INSULIN (NovoLOG) PER UNIT SC SCH ×3 (07:30→17:13)
[2018-06-30 08:00] LABS: BASO % 0.7 % (0.0-1.0); EOS # 0.3 10^3/uL (0.0-0.50); EOS % 4.1 % (0.0-3.0); HEMATOCRIT 24.2 % (36.0-47.0); HEMOGLOBIN 8.1 g/dl (12.0-15.5); LYMPH # 1.2 10^3/uL (1.5-4.5); MEAN CORPUSCULAR HEMOGLOBIN 28.4 pg (27.0-33.0); MEAN CORPUSCULAR HGB CONC 33.5 g/dl (32.0-36.5); MEAN CORPUSCULAR VOLUME 84.9 fl (80.0-96.0); MONO # 0.6 10^3/uL (0.0-0.8); PLATELET COUNT, AUTOMATED 256 10^3/uL (150-450); RED BLOOD COUNT 2.85 10^6/uL (4.00-5.40); WHITE BLOOD COUNT 6.1 10^3/uL (4.0-10.0)
[2018-06-30] MEDS ORDERED: METOCLOPRAMIDE INJ 10MG/2ML VIAL (J2765) IV PRN (08:00)
[2018-06-30 08:24] LABS: ALBUMIN 3.3 GM/DL (3.2-5.2); ALT/SGPT 15 U/L (12-78); BILIRUBIN,TOTAL 0.5 MG/DL (0.2-1.0); BLOOD UREA NITROGEN 10 MG/DL (7-18); CALCIUM LEVEL 8.2 MG/DL (8.5-10.1); CARBON DIOXIDE LEVEL 19 MEQ/L (21-32); CHLORIDE LEVEL 107 MEQ/L (98-107); CREATININE FOR GFR 1.02 MG/DL (0.55-1.30); GLOMERULAR FILTRATION RATE > 60.0 (>58); GLUCOSE, FASTING 215 MG/DL (70-100); LIPASE 64 U/L (73-393); MAGNESIUM LEVEL 1.8 MG/DL (1.8-2.4); POTASSIUM SERUM 3.4 MEQ/L (3.5-5.1); SODIUM LEVEL 139 MEQ/L (136-145); TOTAL PROTEIN 6.1 GM/DL (6.4-8.2)
[2018-06-30] MEDS ORDERED: KETOROLAC 30 MG/ML VIAL (J1885) IV ONE (12:30)
[2018-06-30 14:14] VITALS: BP 139/81
[2018-06-30] MEDS: METOCLOPRAMIDE INJ 10MG/2ML VIAL (J2765) IV PRN (17:24)
[2018-06-30 20:00] VITALS: BP 130/62
[2018-06-30] MEDS: KCL 20MEQ IN D5/NS 1000ML 1,000 ML IV SCH (21:05)
[2018-06-30] MEDS: MORPHINE 4 MG/ML 1ML VIAL/SYRINGE (J2270) IV PRN (21:06)
[2018-07-01] MEDS: HumaLOG INSULIN (NovoLOG) PER UNIT SC SCH ×5 (00:08→20:26)
[2018-07-01] MEDS: METOCLOPRAMIDE INJ 10MG/2ML VIAL (J2765) IV PRN ×3 (00:15→17:47)
--- NOTE | 2018-07-01 05:40 | IPN ---
DATE OF VISIT: 06/30/2018 SUBJECTIVE: The patient is seen and examined in the room today. The patient continues to complain about significant abdominal pain. The patient continues to have nausea and vomiting, denies any fever or chills. OBJECTIVE: VITAL SIGNS: Temperature 99.5, pulse 90, respiratory rate 18, blood pressure 137/78, pulse oxygen 99% on room air. GENERAL: Mild to moderate distress secondary to persistent abdominal pain. Alert, awake and oriented. HEENT: Normocephalic atraumatic. Extraocular muscles intact. CARDIOVASCULAR: Normal S1, S2. Regular rate. LUNGS: Clear to auscultation bilaterally. ABDOMEN: Mild tenderness to palpation. Bowel sounds present. EXTREMITIES: No edema. LABORATORY DATA: WBC 6.1, hemoglobin 8.1, hematocrit 24.2, platelet count 256. Sodium 139, potassium 3.4, chloride 107, carbon dioxide 19. BUN 10, creatinine 1.02, GFR greater than 60, fasting glucose 215, calcium 8.2, magnesium 0.8, total bilirubin 0.5, AST 13, ALT 15, alkaline phosphatase 52. Total protein 6.1, albumin 3.3. ASSESSMENT AND PLAN: 1. Intractable nausea and vomiting. CT of the abdomen and pelvis with intravenous (IV) contrast. Cannot exclude mild enterocolitis. Urine toxicology shows marijuana use. A cyclic vomiting syndrome cannot be ruled out completely. The patient also has uncontrolled type 1 diabetes with A1c 9.9. I have ordered a gastric emptying study; however the patient refused the study. 2. Uncontrolled type 1 diabetes. A1c 9.9. Currently the patient is on insulin. The patient is not able to tolerate a significant oral regimen at this moment due to the intractable nausea and vomiting. The patient is nothing by mouth. 3. Deep venous thrombosis (DVT) prophylaxis. Compression device.
[2018-07-01] MEDS: KCL 20MEQ IN D5/NS 1000ML 1,000 ML IV SCH ×2 (06:05→17:01)
[2018-07-01 06:08] VITALS: BP 134/82
[2018-07-01] MEDS: ONDANSETRON 4MG/2ML VIAL (J2405) IV PRN ×4 (06:09→21:53)
[2018-07-01 06:48] LABS: HEMOGLOBIN 8.2 g/dl (12.0-15.5); MEAN CORPUSCULAR HEMOGLOBIN 28.5 pg (27.0-33.0); MEAN CORPUSCULAR HGB CONC 32.8 g/dl (32.0-36.5); MEAN CORPUSCULAR VOLUME 86.8 fl (80.0-96.0); PLATELET COUNT, AUTOMATED 266 10^3/uL (150-450); RED BLOOD COUNT 2.88 10^6/uL (4.00-5.40); WHITE BLOOD COUNT 6.5 10^3/uL (4.0-10.0)
[2018-07-01 07:07] LABS: BLOOD UREA NITROGEN 8 MG/DL (7-18); CALCIUM LEVEL 8.1 MG/DL (8.5-10.1); CARBON DIOXIDE LEVEL 18 MEQ/L (21-32); CHLORIDE LEVEL 111 MEQ/L (98-107); CREATININE FOR GFR 1.05 MG/DL (0.55-1.30); GLOMERULAR FILTRATION RATE > 60.0 (>58); GLUCOSE, FASTING 150 MG/DL (70-100); MAGNESIUM LEVEL 1.7 MG/DL (1.8-2.4); POTASSIUM SERUM 3.7 MEQ/L (3.5-5.1); SODIUM LEVEL 140 MEQ/L (136-145)
[2018-07-01] MEDS: MORPHINE 4 MG/ML 1ML VIAL/SYRINGE (J2270) IV PRN ×2 (10:51→17:47)
[2018-07-01 14:00] VITALS: BP 161/81
[2018-07-01] MEDS ORDERED: ACETAMINOPHEN TAB 650MG DOSE (2X325MG) PO PRN (18:15)
--- NOTE | 2018-07-01 19:10 | IPNPDOC ---
Text Note Date of Service The patient was seen on 07/01/18. NOTE SUBJECTIVE: The patient is seen and examined in the room today. The patient states her nausea and vomiting are improving. Patient continues having headaches without aura. OBJECTIVE: VITAL SIGNS: Listed below. GENERAL: Mild to moderate distress secondary to persistent abdominal pain. Alert, awake and oriented. HEENT: Normocephalic atraumatic. Extraocular muscles intact. CARDIOVASCULAR: Normal S1, S2. Regular rate. LUNGS: Clear to auscultation bilaterally. ABDOMEN: Mild tenderness to palpation. Bowel sounds present. EXTREMITIES: No edema. LABORATORY DATA: Listed below. ASSESSMENT AND PLAN: #. Intractable nausea and vomiting. - CT of the abdomen and pelvis with intravenous (IV) contrast. Cannot exclude mild enterocolitis. Urine toxicology shows marijuana use. A cyclic vomiting syndrome cannot be ruled out completely. The patient also has uncontrolled type 1 diabetes with A1c 9.9. Patient refused gastric emptying study. - Continue IV support. PRN Zofran and PRN Reglan. Trial of liquid diet. #. Uncontrolled type 1 diabetes. - A1c 9.9. Currently the patient is on insulin sliding scale. # Headache. - History of headache. History of fall on 06/28/18. CT scans were negative. No neurological deficit. If there is worsening of symptoms, will consider repeated imaging. # Hypokalemia - Secondary to GI loss. Supplement as needed. # Marijuana use. #. Deep venous thrombosis (DVT) prophylaxis. Compression device. VS,Fishbone, I+O VS, Fishbone, I+O Laboratory Tests 07/01/18 06:34 Red Blood Count 2.88 L, Mean Corpuscular Volume 86.8, Mean Corpuscular Hemoglobin 28.5, Mean Corpuscular Hemoglobin Concent 32.8, Red Cell Distribution Width 14.9 H, Calcium Level 8.1 L Vital Signs Date Time Temp Pulse Resp B/P (MAP) Pulse Ox O2 Delivery O2 Flow Rate FiO2 07/01/18 18:13 18 07/01/18 14:00 98.1 89 161/81 (107) 100 06/29/18 19:41 Room Air I&O- Last 24 Hours up to 6 AM 07/01/18 06:00 Intake Total 3600 ml Output Total 1500 ml Balance 2100 ml RONNIE BOONE DO Jul 01, 2018 19:10
[2018-07-01 20:27] VITALS: BP 113/69
[2018-07-02] MEDS: METOCLOPRAMIDE INJ 10MG/2ML VIAL (J2765) IV PRN ×2 (00:24→07:33)
[2018-07-02] MEDS: MORPHINE 4 MG/ML 1ML VIAL/SYRINGE (J2270) IV PRN ×2 (00:25→07:33)
[2018-07-02] MEDS: KCL 20MEQ IN D5/NS 1000ML 1,000 ML IV SCH (02:14)
[2018-07-02] MEDS: ONDANSETRON 4MG/2ML VIAL (J2405) IV PRN (03:38)
[2018-07-02 06:00] VITALS: BP 148/74
[2018-07-02 06:25] LABS: HEMOGLOBIN 8.6 g/dl (12.0-15.5); MEAN CORPUSCULAR HGB CONC 33.1 g/dl (32.0-36.5); MEAN CORPUSCULAR VOLUME 87.5 fl (80.0-96.0); PLATELET COUNT, AUTOMATED 282 10^3/uL (150-450); RED BLOOD COUNT 2.97 10^6/uL (4.00-5.40); WHITE BLOOD COUNT 10.5 10^3/uL (4.0-10.0)
[2018-07-02 06:52] LABS: BLOOD UREA NITROGEN 6 MG/DL (7-18); CALCIUM LEVEL 8.5 MG/DL (8.5-10.1); CARBON DIOXIDE LEVEL 13 MEQ/L (21-32); CHLORIDE LEVEL 105 MEQ/L (98-107); CREATININE FOR GFR 1.18 MG/DL (0.55-1.30); GLOMERULAR FILTRATION RATE > 60.0 (>58); GLUCOSE, FASTING 426 MG/DL (70-100); MAGNESIUM LEVEL 1.5 MG/DL (1.8-2.4); POTASSIUM SERUM 4.3 MEQ/L (3.5-5.1); SODIUM LEVEL 136 MEQ/L (136-145)
[2018-07-02] MEDS: HumaLOG INSULIN (NovoLOG) PER UNIT SC SCH ×4 (07:32→20:53)
[2018-07-02 08:00] VITALS: BP 135/70
[2018-07-02] MEDS: LEVEMIR (INSULIN DETEMIR) 1 UNITS/0.01ML SC SCH (09:13)
[2018-07-02] MEDS: MAGNESIUM OXIDE 400 MG TAB (MAG-OX) PO SCH ×2 (09:13→20:52)
[2018-07-02] MEDS: KCL 20MEQ in NS 1000ML 1,000 ML IV SCH ×2 (09:13→19:36)
[2018-07-02 13:39] LABS: BLOOD UREA NITROGEN 7 MG/DL (7-18); CALCIUM LEVEL 8.7 MG/DL (8.5-10.1); CARBON DIOXIDE LEVEL 21 MEQ/L (21-32); CHLORIDE LEVEL 110 MEQ/L (98-107); CREATININE FOR GFR 1.21 MG/DL (0.55-1.30); GLOMERULAR FILTRATION RATE > 60.0 (>58); GLUCOSE, FASTING 121 MG/DL (70-100); POTASSIUM SERUM 3.8 MEQ/L (3.5-5.1); SODIUM LEVEL 141 MEQ/L (136-145)
[2018-07-02 14:00] VITALS: BP 135/80
[2018-07-02] MEDS ORDERED: KETOROLAC 30 MG/ML VIAL (J1885) IV PRN (14:30)
[2018-07-02] MEDS ORDERED: traMADol 50 MG TAB PO PRN (14:30)
[2018-07-02 14:40] VITALS: BP 151/94
--- NOTE | 2018-07-02 16:29 | IPNPDOC ---
Text Note Date of Service The patient was seen on 07/02/18. NOTE SUBJECTIVE: The patient is seen and examined in the room today. The patient states her nausea and vomiting are improving. Headache is improving. Patient states even though her GI symptoms are improving but she is afraid of oral intake. OBJECTIVE: VITAL SIGNS: Listed below. GENERAL: No significant distress. Alert, awake and oriented. HEENT: Normocephalic atraumatic. Extraocular muscles intact. CARDIOVASCULAR: Normal S1, S2. Regular rate. LUNGS: Clear to auscultation bilaterally. ABDOMEN: Mild tenderness to palpation. Bowel sounds present. EXTREMITIES: No edema. LABORATORY DATA: Listed below. ASSESSMENT AND PLAN: #. Intractable nausea and vomiting. - CT of the abdomen and pelvis with intravenous (IV) contrast. Cannot exclude mild enterocolitis. Urine toxicology shows marijuana use. A cyclic vomiting syndrome cannot be ruled out completely. The patient also has uncontrolled type 1 diabetes with A1c 9.9. Gastroparesis is part of differentials. Patient refused gastric emptying study. - Continue IV support. PRN Zofran and PRN Reglan. Trial of liquid diet. Advance diet as tolerated. - Patient still has abdominal pain. She is afraid of oral intake at this moment. Adjust pain medication as needed. #. Uncontrolled type 1 diabetes. - A1c 9.9. Currently the patient is on insulin sliding scale. # Headache. - History of headache. History of fall on 06/28/18. CT scans were negative. No neurological deficit. Headache is improving. # Hypokalemia - Secondary to GI loss. Supplement as needed. # Marijuana use. #. Deep venous thrombosis (DVT) prophylaxis. Compression device. VS,Fishbone, I+O VS, Fishbone, I+O Laboratory Tests 07/02/18 05:58 Red Blood Count 2.97 L, Mean Corpuscular Volume 87.5, Mean Corpuscular Hemoglobin 29.0, Mean Corpuscular Hemoglobin Concent 33.1, Red Cell Distribution Width 15.1 H 07/02/18 05:59 Calcium Level 8.5 07/02/18 12:53 Calcium Level 8.7 Vital Signs Date Time Temp Pulse Resp B/P (MAP) Pulse Ox O2 Delivery O2 Flow Rate FiO2 07/02/18 14:40 98.0 94 16 151/94 (113) 100 06/29/18 19:41 Room Air I&O- Last 24 Hours up to 6 AM 07/02/18 06:00 Intake Total 2019 ml Output Total 2049 ml Balance -30 ml RONNIE BOONE DO Jul 02, 2018 16:29
[2018-07-02 22:00] VITALS: BP 139/83
[2018-07-03] MEDS: KCL 20MEQ in NS 1000ML 1,000 ML IV SCH (03:10)
[2018-07-03 06:00] VITALS: BP 146/87
[2018-07-03 06:12] LABS: HEMATOCRIT 22.7 % (36.0-47.0); HEMOGLOBIN 7.7 g/dl (12.0-15.5); MEAN CORPUSCULAR HEMOGLOBIN 28.4 pg (27.0-33.0); MEAN CORPUSCULAR HGB CONC 33.9 g/dl (32.0-36.5); MEAN CORPUSCULAR VOLUME 83.8 fl (80.0-96.0); PLATELET COUNT, AUTOMATED 258 10^3/uL (150-450); RED BLOOD COUNT 2.71 10^6/uL (4.00-5.40); WHITE BLOOD COUNT 6.1 10^3/uL (4.0-10.0)
[2018-07-03 06:30] LABS: BLOOD UREA NITROGEN 5 MG/DL (7-18); CALCIUM LEVEL 8.2 MG/DL (8.5-10.1); CARBON DIOXIDE LEVEL 19 MEQ/L (21-32); CHLORIDE LEVEL 109 MEQ/L (98-107); CREATININE FOR GFR 0.85 MG/DL (0.55-1.30); GLOMERULAR FILTRATION RATE > 60.0 (>58); GLUCOSE, FASTING 52 MG/DL (70-100); MAGNESIUM LEVEL 1.4 MG/DL (1.8-2.4); POTASSIUM SERUM 3.7 MEQ/L (3.5-5.1); SODIUM LEVEL 140 MEQ/L (136-145)
[2018-07-03] MEDS: HumaLOG INSULIN (NovoLOG) PER UNIT SC SCH ×4 (07:29→21:00)
[2018-07-03] MEDS: LEVEMIR (INSULIN DETEMIR) 1 UNITS/0.01ML SC SCH ×2 (08:16→16:05)
[2018-07-03] MEDS: MAGNESIUM OXIDE 400 MG TAB (MAG-OX) PO SCH ×3 (09:00→20:00)
[2018-07-03] MEDS: ONDANSETRON 4MG/2ML VIAL (J2405) IV PRN ×2 (09:13→18:34)
[2018-07-03] MEDS: MAG SULF 1GM/100ML (MAG RUN) 1 GM in APPROPRIATE DILUENT 1 EA IV SCH ×2 (09:14→10:00)
[2018-07-03] MEDS: D5W/0.45% SODIUM CHLORIDE 1,000 ML IV SCH ×2 (09:14→19:40)
[2018-07-03 09:24] LABS: PERCENT SATURATION 17.4 % (13.2-45.0)
[2018-07-03] MEDS: KETOROLAC 30 MG/ML VIAL (J1885) IV PRN ×2 (12:57→20:00)
[2018-07-03] MEDS: METOCLOPRAMIDE INJ 10MG/2ML VIAL (J2765) IV PRN ×2 (13:40→19:39)
[2018-07-03 14:00] VITALS: BP_SYST 109; BP_SYST 137; BP_DIAS 71; BP_DIAS 84
--- NOTE | 2018-07-03 15:54 | IPNPDOC ---
Text Note Date of Service The patient was seen on 07/03/18. NOTE SUBJECTIVE: The patient is seen and examined in the room today. The patient states there is no worsening of nausea and vomiting. Patient complains about headache. Patient refused brain imaging study, gastric emptying study and possible transfusion. OBJECTIVE: VITAL SIGNS: Listed below. GENERAL: Moderate distress. Alert, awake and oriented. HEENT: Normocephalic atraumatic. Extraocular muscles intact. CARDIOVASCULAR: Normal S1, S2. Regular rate. LUNGS: Clear to auscultation bilaterally. ABDOMEN: Mild tenderness to palpation. Bowel sounds present. EXTREMITIES: No edema. LABORATORY DATA: Listed below. ASSESSMENT AND PLAN: #. Intractable nausea and vomiting. - CT of the abdomen and pelvis with intravenous (IV) contrast. Cannot exclude mild enterocolitis. Urine toxicology shows marijuana use. A cyclic vomiting syndrome cannot be ruled out completely. The patient also has uncontrolled type 1 diabetes with A1c 9.9. Gastroparesis is part of differentials. Patient has refused gastric emptying study multiple times. - Continue IV support. PRN Zofran and PRN Reglan. Trial of liquid diet. Advance diet as tolerated. - Patient still has limited intake. Adjust pain medication as needed. # Anemia - Denies acute bleeding. Anemia workup ordered. Discussed about blood consent. Patient refused. # Headache. - History of headache. History of fall on 06/28/18. CT scan of head on 06/28/18 was negative. No neurological deficit. - Refuse MRI. #. Uncontrolled type 1 diabetes. - A1c 9.9. Currently the patient is on insulin sliding scale. On levemir. # Hypokalemia - Secondary to GI loss. Supplement as needed. # Marijuana use. #. Deep venous thrombosis (DVT) prophylaxis. Compression device. VS,Fishbone, I+O VS, Fishbone, I+O Laboratory Tests 07/03/18 05:50 Red Blood Count 2.71 L, Mean Corpuscular Volume 83.8, Mean Corpuscular Hemoglobin 28.4, Mean Corpuscular Hemoglobin Concent 33.9, Red Cell Distribution Width 14.8 H, Calcium Level 8.2 L Vital Signs Date Time Temp Pulse Resp B/P (MAP) Pulse Ox O2 Delivery O2 Flow Rate FiO2 07/03/18 09:43 14 07/03/18 06:00 98.0 94 146/87 (106) 100 06/29/18 19:41 Room Air I&O- Last 24 Hours up to 6 AM0 07/03/18 06:00 Intake Total 2030 ml Output Total 1200 ml Balance 830 ml RONNIE BOONE DO Jul 03, 2018 15:54
[2018-07-03 22:00] VITALS: BP 154/84
[2018-07-04] MEDS: D5W/0.45% SODIUM CHLORIDE 1,000 ML IV SCH ×2 (05:16→17:00)
[2018-07-04] MEDS: KETOROLAC 30 MG/ML VIAL (J1885) IV PRN ×2 (05:22→15:48)
[2018-07-04] MEDS: METOCLOPRAMIDE INJ 10MG/2ML VIAL (J2765) IV PRN (05:22)
[2018-07-04 05:49] LABS: HEMATOCRIT 23.4 % (36.0-47.0); MEAN CORPUSCULAR HEMOGLOBIN 28.4 pg (27.0-33.0); MEAN CORPUSCULAR HGB CONC 34.2 g/dl (32.0-36.5); PLATELET COUNT, AUTOMATED 275 10^3/uL (150-450); RED BLOOD COUNT 2.82 10^6/uL (4.00-5.40); WHITE BLOOD COUNT 6.2 10^3/uL (4.0-10.0)
[2018-07-04 06:00] VITALS: BP 125/75
[2018-07-04 06:18] LABS: BLOOD UREA NITROGEN 3 MG/DL (7-18); CALCIUM LEVEL 8.3 MG/DL (8.5-10.1); CARBON DIOXIDE LEVEL 24 MEQ/L (21-32); CHLORIDE LEVEL 106 MEQ/L (98-107); GLOMERULAR FILTRATION RATE > 60.0 (>58); GLUCOSE, FASTING 132 MG/DL (70-100); MAGNESIUM LEVEL 1.6 MG/DL (1.8-2.4); POTASSIUM SERUM 3.5 MEQ/L (3.5-5.1); SODIUM LEVEL 137 MEQ/L (136-145)
[2018-07-04] MEDS: HumaLOG INSULIN (NovoLOG) PER UNIT SC SCH ×4 (07:30→20:49)
[2018-07-04] MEDS: LEVEMIR (INSULIN DETEMIR) 1 UNITS/0.01ML SC SCH (08:33)
[2018-07-04] MEDS: MAGNESIUM OXIDE 400 MG TAB (MAG-OX) PO SCH ×3 (08:34→20:56)
[2018-07-04] MEDS ORDERED: MIRALAX *UNIT DOSE* 17GM PACKET PO PRN (12:30)
[2018-07-04 14:00] VITALS: BP 142/89
[2018-07-04] MEDS: BISACODYL 10 MG SUPP PR PRN ×2 (14:11→20:55)
--- NOTE | 2018-07-04 14:38 | IPNPDOC ---
Text Note Date of Service The patient was seen on 07/04/18. NOTE SUBJECTIVE: The patient is seen and examined in the room today. The patient states her headache is improving. Nausea and vomiting is improving. Patient still complains about abdominal discomfort. She is still afraid of oral intake. OBJECTIVE: VITAL SIGNS: Listed below. GENERAL: Mild distress. Alert, awake and oriented. HEENT: Normocephalic atraumatic. Extraocular muscles intact. CARDIOVASCULAR: Normal S1, S2. Regular rate. LUNGS: Clear to auscultation bilaterally. ABDOMEN: Mild tenderness to palpation. Bowel sounds present. EXTREMITIES: No edema. LABORATORY DATA: Listed below. ASSESSMENT AND PLAN: #. Intractable nausea and vomiting. - CT of the abdomen and pelvis with intravenous (IV) contrast. Cannot exclude mild enterocolitis. Urine toxicology shows marijuana use. A cyclic vomiting syndrome cannot be ruled out completely. The patient also has uncontrolled type 1 diabetes with A1c 9.9. Gastroparesis is part of differentials. Patient has refused gastric emptying study multiple times. - Continue IV support. PRN Zofran and PRN Reglan. Trial of liquid diet. Advance diet as tolerated. Encourage oral intake. - Adjust pain medication as needed. # Anemia - Denies acute bleeding. Anemia workup ordered. Discussed about blood consent. Patient refused. # Headache. - History of headache. History of fall on 06/28/18. CT scan of head on 06/28/18 was negative. - Refused MRI. #. Uncontrolled type 1 diabetes. - A1c 9.9. Currently the patient is on insulin sliding scale. On levemir. # Hypokalemia - Secondary to GI loss. Supplement as needed. # Marijuana use. #. Deep venous thrombosis (DVT) prophylaxis. Compression device. VS,Fishbone, I+O VS, Fishbone, I+O Laboratory Tests 07/04/18 05:27 Red Blood Count 2.82 L, Mean Corpuscular Volume 83.0, Mean Corpuscular Hemoglobin 28.4, Mean Corpuscular Hemoglobin Concent 34.2, Red Cell Distribution Width 14.5, Calcium Level 8.3 L Vital Signs Date Time Temp Pulse Resp B/P (MAP) Pulse Ox O2 Delivery O2 Flow Rate FiO2 07/04/18 06:00 98.1 73 15 125/75 (92) 98 06/29/18 19:41 Room Air I&O- Last 24 Hours up to 6 AM 07/04/18 06:00 Intake Total 2845 ml Output Total 1100 ml Balance 1745 ml RONNIE BOONE DO Jul 04, 2018 14:38
[2018-07-04 22:00] VITALS: BP 138/88
[2018-07-05] MEDS: D5W/0.45% SODIUM CHLORIDE 1,000 ML IV SCH ×3 (01:01→21:26)
[2018-07-05] MEDS: KETOROLAC 30 MG/ML VIAL (J1885) IV PRN (01:01)
[2018-07-05 06:07] LABS: HEMATOCRIT 22.7 % (36.0-47.0); HEMOGLOBIN 7.8 g/dl (12.0-15.5); MEAN CORPUSCULAR HEMOGLOBIN 28.8 pg (27.0-33.0); MEAN CORPUSCULAR HGB CONC 34.4 g/dl (32.0-36.5); MEAN CORPUSCULAR VOLUME 83.8 fl (80.0-96.0); PLATELET COUNT, AUTOMATED 254 10^3/uL (150-450); RED BLOOD COUNT 2.71 10^6/uL (4.00-5.40)
[2018-07-05 06:34] LABS: BLOOD UREA NITROGEN 3 MG/DL (7-18); CALCIUM LEVEL 8.1 MG/DL (8.5-10.1); CARBON DIOXIDE LEVEL 26 MEQ/L (21-32); CHLORIDE LEVEL 104 MEQ/L (98-107); CREATININE FOR GFR 1.03 MG/DL (0.55-1.30); GLOMERULAR FILTRATION RATE > 60.0 (>58); GLUCOSE, FASTING 244 MG/DL (70-100); MAGNESIUM LEVEL 1.4 MG/DL (1.8-2.4); POTASSIUM SERUM 3.4 MEQ/L (3.5-5.1); SODIUM LEVEL 137 MEQ/L (136-145)
[2018-07-05] MEDS ORDERED: MAG SULF 1GM/100ML (MAG RUN) 1 GM in APPROPRIATE DILUENT 1 EA IV ONE (06:45)
[2018-07-05] MEDS ORDERED: POTASSIUM CHLORIDE 10 MEQ SR TABLET PO ONE (07:15)
[2018-07-05] MEDS: MAGNESIUM OXIDE 400 MG TAB (MAG-OX) PO SCH ×2 (09:00→21:00)
[2018-07-05 09:16] LABS: FOLATE 11.4 NG/ML (>5.4)
[2018-07-05] MEDS: LEVEMIR (INSULIN DETEMIR) 1 UNITS/0.01ML SC SCH (09:20)
[2018-07-05] MEDS: HumaLOG INSULIN (NovoLOG) PER UNIT SC SCH ×4 (09:21→21:00)
[2018-07-05 14:00] VITALS: BP 138/86
--- NOTE | 2018-07-05 16:32 | IPNPDOC ---
Text Note Date of Service The patient was seen on 07/05/18. NOTE SUBJECTIVE: The patient is seen and examined in the room today. The patient continues complaining about headache and abdominal discomfort. Patient refused further workup. Patient has refused some of the oral medications. Patient has also refused physical therapy. OBJECTIVE: VITAL SIGNS: Listed below. GENERAL: Mild distress. Alert, awake and oriented. HEENT: Normocephalic atraumatic. Extraocular muscles intact. CARDIOVASCULAR: Normal S1, S2. Regular rate. LUNGS: Clear to auscultation bilaterally. ABDOMEN: Mild tenderness to palpation. Bowel sounds present. EXTREMITIES: No edema. LABORATORY DATA: Listed below. ASSESSMENT AND PLAN: #. Intractable nausea and vomiting. - CT of the abdomen and pelvis with intravenous (IV) contrast. Cannot exclude mild enterocolitis. Urine toxicology shows marijuana use. A cyclic vomiting syndrome cannot be ruled out completely. The patient also has uncontrolled type 1 diabetes with A1c 9.9. Gastroparesis is part of differentials. Patient has refused gastric emptying study multiple times. - Continue IV support. PRN Zofran and PRN Reglan. Poor oral intake. - Adjust pain medication as needed. # Anemia - Denies acute bleeding. Anemia workup ordered. Peripheral smear demonstrated normocytic anemia and no significant morphologic abnormalities noted. - Discussed about blood consent. Patient refused. # Headache. - History of headache. History of fall on 06/28/18. CT scan of head on 06/28/18 was negative. - Refused MRI. #. Uncontrolled type 1 diabetes. - A1c 9.9. Currently the patient is on insulin sliding scale. On levemir. # Hypokalemia - Secondary to GI loss. Supplement as needed. # Marijuana use. #. Deep venous thrombosis (DVT) prophylaxis. Compression device. VS,Fishbone, I+O VS, Fishbone, I+O Laboratory Tests 07/05/18 05:33 Red Blood Count 2.71 L, Mean Corpuscular Volume 83.8, Mean Corpuscular Hemoglobin 28.8, Mean Corpuscular Hemoglobin Concent 34.4, Red Cell Distribution Width 14.7 H, Calcium Level 8.1 L Vital Signs Date Time Temp Pulse Resp B/P (MAP) Pulse Ox O2 Delivery O2 Flow Rate FiO2 07/05/18 14:00 97.5 84 16 138/86 (103) 100 06/29/18 19:41 Room Air I&O- Last 24 Hours up to 6 AM 07/05/18 06:00 Intake Total 2640 ml Output Total 1100 ml Balance 1540 ml RONNIE BOONE DO Jul 05, 2018 16:32
[2018-07-05] MEDS ORDERED: SENOKOT S TAB PO PRN (16:45)
[2018-07-05] MEDS: BISACODYL 10 MG SUPP PR PRN (21:26)
[2018-07-05 22:00] VITALS: BP 130/79
[2018-07-06 06:00] VITALS: BP 128/75
[2018-07-06 06:00] LABS: HEMOGLOBIN 7.9 g/dl (12.0-15.5); MEAN CORPUSCULAR HEMOGLOBIN 28.5 pg (27.0-33.0); MEAN CORPUSCULAR HGB CONC 34.3 g/dl (32.0-36.5); PLATELET COUNT, AUTOMATED 257 10^3/uL (150-450); RED BLOOD COUNT 2.77 10^6/uL (4.00-5.40)
[2018-07-06 06:25] LABS: BLOOD UREA NITROGEN 3 MG/DL (7-18); CALCIUM LEVEL 8.3 MG/DL (8.5-10.1); CARBON DIOXIDE LEVEL 25 MEQ/L (21-32); CHLORIDE LEVEL 104 MEQ/L (98-107); CREATININE FOR GFR 0.97 MG/DL (0.55-1.30); GLOMERULAR FILTRATION RATE > 60.0 (>58); GLUCOSE, FASTING 230 MG/DL (70-100); MAGNESIUM LEVEL 1.6 MG/DL (1.8-2.4); POTASSIUM SERUM 3.5 MEQ/L (3.5-5.1); SODIUM LEVEL 136 MEQ/L (136-145)
[2018-07-06] MEDS: D5W/0.45% SODIUM CHLORIDE 1,000 ML IV SCH (06:34)
[2018-07-06] MEDS: MAGNESIUM OXIDE 400 MG TAB (MAG-OX) PO SCH (09:00)
[2018-07-06] MEDS: HumaLOG INSULIN (NovoLOG) PER UNIT SC SCH ×2 (09:21→12:53)
[2018-07-06] MEDS: LEVEMIR (INSULIN DETEMIR) 1 UNITS/0.01ML SC SCH (09:23)
[2018-07-06] MEDS ORDERED: ONDA4TAB6 PO (12:16)
[2018-07-06] MEDS ORDERED: NOVOINJ14 SC (12:16)
[2018-07-06] MEDS ORDERED: MAG400TA PO (12:16)
--- NOTE | 2018-07-06 16:25 | DS.PDOC ---
Discharge Summary General Date of Admission Jul 01, 2018 at 08:08 Date of Discharge 07/06/18 Discharge Summary PROCEDURES PERFORMED DURING STAY: None. ADMITTING DIAGNOSES: 1. Intractable nausea and vomiting DISCHARGE DIAGNOSES: 1. Intractable nausea and vomiting, improved COMPLICATIONS/CHIEF COMPLAINT: Intractable Vomiting. HISTORY OF PRESENT ILLNESS: The patient is a 46-year-old female represented to the ER with complaint of intractable nausea and vomiting admitted to the hospital for further management of the same. HOSPITAL COURSE: Intractable nausea and vomiting: -Patient had CT scan of abdomen and pelvis done which could not exclude mild enterocolitis -Patient's urine drug screen was also positive for marijuana raising possibility of cyclic vomiting syndrome -Patient also is a known diabetic with an A1c of 9.9gastroparesis was also considered to be a possibility -Patient refused workup with gastric emptying study -She was treated with IV fluids, as needed Zofran/Reglan and was on clear liquids -Today, the patient reports she wants to be discharged as her son is not doing well. She reports she has been tolerating clear liquids okay. Denies any abdominal pain. No nausea or vomiting today. -She will be given a prescription for Zofran ODT. Advised her to continue with clear liquids for now and advance that as tolerated at home. Anemia: -Appears to have low iron as well as low iron binding capacity. -Patient did not want any blood transfusion -I will advised outpatient follow-up with her primary care provider for further management and evaluation of her anemia Headache: -Head CT was negative on 06/28/18 -Patient refused MRI Uncontrolled diabetes mellitus type 1: -Advised resumption of 70/30 insulin on discharge as patient did have some problem with slight hypoglycemia last night and also since she is currently on clear liquids -She takes the 70/30 insulin based on a sliding scale -Advised outpatient follow-up with the primary care provider for further management of her diabetes mellitus -Hemoglobin A1c was 9.9 Hypokalemia: -Was repleted Hypomagnesemia: -Patient was treated with oral magnesium oxidethis will be continued on discharge Marijuana use: -Was counseled regarding quitting same DISCHARGE MEDICATIONS: Please see below. ALLERGIES: Please see below. PHYSICAL EXAMINATION ON DISCHARGE: VITAL SIGNS: Please see below. GENERAL: Lying in bed. In no distress HEENT: Pupils equal round reactive to light CARDIOVASCULAR EXAMINATION: S1, S2 heard. No rubs or gallops RESPIRATORY EXAMINATION: Clear to auscultation bilaterally ABDOMINAL EXAMINATION: Soft, nontender NEUROLOGICAL EXAMINATION: Awake, alert, answering questions appropriately LABORATORY DATA: Please see below. ACTIVITY: As tolerated. DIET: Clear liquid diet and advanced as tolerated to carbohydrate controlled 1800 kcal diet DISCHARGE PLAN: Patient will be discharged home today as noted above. Follow-up with primary care provider in one week DISPOSITION: Home ITEMS TO FOLLOWUP ON ON OUTPATIENT: 1. Further monitoring and evaluation of anemia as an outpatient. 2. Further management of insulin therapy based on patient's fingersticks DISCHARGE CONDITION: Stable. TIME SPENT ON DISCHARGE: 35 minutes. Vital Signs/I&Os Vital Signs Date Time Temp Pulse Resp B/P (MAP) Pulse Ox O2 Delivery O2 Flow Rate FiO2 07/06/18 06:00 98.2 85 15 128/75 (92) 99 I&O- Last 24 Hours up to 6 AM 07/06/18 06:00 Intake Total 2160 ml Output Total 2100 ml Balance 60 ml Laboratory Data Labs 24H Laboratory Tests 2 07/05/18 16:36: Bedside Glucose (Misc Panel) 58L 07/05/18 17:05: Bedside Glucose (Misc Panel) 72 07/05/18 20:44: Bedside Glucose (Misc Panel) 102 07/06/18 02:08: Bedside Glucose (Misc Panel) 173H 07/06/18 05:38: Nucleated Red Blood Cells % (auto) 0.0 07/06/18 05:39: Anion Gap 7L, Glomerular Filtration Rate > 60.0, Blood Urea Nitrogen 3L, Creatinine 0.97, Sodium Level 136, Potassium Level 3.5, Chloride Level 104, Carbon Dioxide Level 25, Calcium Level 8.3L, Magnesium Level 1.6L 07/06/18 11:11: Bedside Glucose (Misc Panel) 225H CBC/BMP Laboratory Tests 07/06/18 05:38 Red Blood Count 2.77 L, Mean Corpuscular Volume 83.0, Mean Corpuscular Hemoglobin 28.5, Mean Corpuscular Hemoglobin Concent 34.3, Red Cell Distribution Width 14.5 07/06/18 05:39 Calcium Level 8.3 L FSBS Laboratory Tests Test 07/05/18 16:36 07/05/18 17:05 07/05/18 20:44 07/06/18 02:08 Range/Units Bedside Glucose (Misc Panel) 58 72 102 173 70-105 MG/DL Test 07/06/18 11:11 Range/Units Bedside Glucose (Misc Panel) 225 70-105 MG/DL Microbiology Microbiology 06/29/18 Blood Culture - Final, Complete NO GROWTH AFTER 5 DAYS 06/29/18 Blood Culture - Final, Complete NO GROWTH AFTER 5 DAYS 06/29/18 Urine Culture - Final, Complete Discharge Medications Scheduled (Hair/Skin/Nails 1250-7.5-7.5 Mcg-mg-Unt) 1 Chw Chw, 2 CHW PO DAILY, (Reported) Aspirin (Aspirin 81) 81 Mg Tab, 81 MG PO DAILY, (Reported) Insulin Human Isophan/Regular (Novolin 70/30 Relion (70-30) 100 Unit/ml) 1 Inj Inj, 1 DOSE SC BID PER SLIDING SCALE Magnesium Oxide (Magnesium Oxide) 400 Mg Tab, 800 MG PO BID Omeprazole (Omeprazole) 20 Mg Cap, 20 MG PO DAILY, (Reported) Simvastatin (Simvastatin) 20 Mg Tab, 20 MG PO QHS, (Reported) Scheduled PRN Metoclopramide HCl (Metoclopramide HCl) 5 Mg Tab, 5 MG PO ACHS PRN for ABDOMINAL PAIN, (Reported) Nitroglycerin (Nitrostat) 0.4 Mg Subl, 0.4 MG SL NITRO PRN for CHEST PAIN, (Reported) Ondansetron (Ondansetron Odt) 4 Mg Tab, 4 MG PO Q6-8HP PRN for nausea/vomiting Allergies Coded Allergies: No Known Allergies (Verified , 12/14/02) PATRICIA LAYNE MD Jul 06, 2018 12:17
[2018-07-07] MEDS ORDERED: [UNRECOGNIZED DRUG - OTHER] SC (10:59)
[2018-07-07] MEDS ORDERED: BD I1MIS10 SC (10:59)
== END 2018-07-06 13:50 | disposition home or self-care (01) | DRG 249 ==
LOC: M ED 13:17 → M ED INP 17:09 → M MS4PR 19:55 → OBSVTOIN 07-01 08:08 → M MSPAV 07-02 14:38
PROVIDERS: ADMIT Internal Medicine; ATTEND Internal Medicine
DX: K52.9 Noninfective gastroenteritis and colitis, unspecified (principal); K31.84 Gastroparesis; E10.65 Type 1 diabetes mellitus with hyperglycemia; E10.43 Type 1 diabetes mellitus with diabetic autonomic (poly)neuropathy; F12.10 Cannabis abuse, uncomplicated; D64.9 Anemia, unspecified; G43.A0 Cyclical vomiting, in migraine, not intractable; Z87.891 Personal history of nicotine dependence; Z79.82 Long term (current) use of aspirin; Z79.4 Long term (current) use of insulin; Z79.899 Other long term (current) drug therapy

== ENCOUNTER 2019-05-30 12:29 | Inpatient (IN) | payer OTHER ==
[~2019-05-30] VITALS: Ht 170.2 cm; Wt 74.7 kg
[~2019-05-30 12:29] MED LIST changes: -/INSU7030; -/ONDA4TA PO; -/PANT40TA; +ASPI81TA26 PO; +AUGM875T28 PO; +AVEL1TAB3 PO; +BASA100I SC; +BD I1MIS10 SC; +METO5TAB2 PO; -NAPR-50 PO; +NAPR-837 PO; +NICO14DI20 EXT; -NICO14PA EXT; +NITR4TASL SL; +NOVO1INJ4; +OMEP1CAP73 PO; +ONDA-1 PO; +ONDA-227; +ONDA4TAB6 PO; +PRED20TA PO; +PROM-190 PO; -PROM25TA PO; +PROT1TAB2; +SIMV20TA22 PO; -ZOFR8TAB; +[UNRECOGNIZED DRUG - OTHER] SC
[2019-05-30 13:33] LABS: BASO % 0.3 % (0.0-1.0); HEMATOCRIT 31.1 % (36.0-47.0); HEMOGLOBIN 10.5 g/dl (12.0-15.5); LYMPH % 7.6 % (24.0-44.0); MEAN CORPUSCULAR HEMOGLOBIN 28.3 pg (27.0-33.0); MEAN CORPUSCULAR HGB CONC 33.8 g/dl (32.0-36.5); MEAN CORPUSCULAR VOLUME 83.8 fl (80.0-96.0); MONO # 0.3 10^3/uL (0.0-0.8); MONO % 2.5 % (0.0-5.0); NEUTROPHILS % 89.3 % (36.0-66.0); PLATELET COUNT, AUTOMATED 314 10^3/uL (150-450); RED BLOOD COUNT 3.71 10^6/uL (4.00-5.40); WHITE BLOOD COUNT 13.4 10^3/uL (4.0-10.0)
[2019-05-30 14:04] LABS: CALCIUM LEVEL 9.8 MG/DL (8.5-10.1); CREATININE FOR GFR 1.64 MG/DL (0.55-1.30); GLOMERULAR FILTRATION RATE 43.5 (>58); POTASSIUM SERUM 3.4 MEQ/L (3.5-5.1)
[2019-05-30 14:05] LABS: HEMOGLOBIN A1c 10.3 %
[2019-05-30] MEDS ORDERED: METOCLOPRAMIDE INJ 10MG/2ML VIAL (J2765) IV ONE (14:15)
[2019-05-30] MEDS ORDERED: NS 1,000 ML IV ONE ×2 (14:15→16:15)
[2019-05-30] MEDS ORDERED: ONDANSETRON 4MG/2ML VIAL (J2405) IV ONE (16:15)
[2019-05-30] MEDS ORDERED: ACETAMINOPHEN *IV* 1,000 MG in IV 1 EA IV ONE ×2 (16:15→22:30)
--- NOTE | 2019-05-30 16:38 | REP ---
Supine abdomen single AP view: Comparison is 12/24/2013. The bowel gas pattern is normal. There are pelvic calcifications, likely phleboliths, unchanged. The skeletal structures and soft tissues are otherwise unremarkable. Impression: Normal bowel gas pattern. Electronically Signed by Asad Rosario MD 05/30/2019 04:30 P
[2019-05-30] MEDS ORDERED: PROMETHAZINE INJ 25 MG/ML VIAL (J2550) IV ONE (19:00)
[2019-05-30] MEDS ORDERED: NS 1,000 ML IV SCH (19:00)
[2019-05-30] MEDS ORDERED: DEXTROSE 50% 50 ML SYRINGE IV PRN (19:30)
[2019-05-30] MEDS ORDERED: GLUCAGON FOR INJ 1 MG VIAL (J1610) SC PRN (19:30)
[2019-05-30] MEDS ORDERED: GLUCOSE 4 GM CHEW TABLET PO PRN (19:30)
[2019-05-30] MEDS ORDERED: NOVO1INJ4 SC (19:32)
[2019-05-30] MEDS: HumaLOG INSULIN (NovoLOG) PER UNIT SC SCH (21:00)
[2019-05-30] MEDS ORDERED: HYDROMORPHONE HCL 0.5 MG/ 0.5 ML SYRINGE (J1170 PER 1) IV ONE (21:30)
[2019-05-30] MEDS: ONDANSETRON 4MG/2ML VIAL (J2405) IV SCH (21:56)
[2019-05-30 22:34] LABS: CALCIUM LEVEL 8.4 MG/DL (8.5-10.1); CREATININE FOR GFR 1.33 MG/DL (0.55-1.30); GLOMERULAR FILTRATION RATE 55.4 (>58); POTASSIUM SERUM 3.4 MEQ/L (3.5-5.1)
[2019-05-30 22:35] VITALS: BP 162/83
[2019-05-30 23:19] LABS: AMPHETAMINES LEVEL URINE NEGATIVE (NEGATIVE); BARBITURATES URINE NEGATIVE (NEGATIVE); BENZODIAZEPINES URINE NEGATIVE (NEGATIVE); CANNABINOIDS URINE POSITIVE (NEGATIVE); COCAINE METABOLITE URINE NEGATIVE (NEGATIVE); METHADONE URINE NEGATIVE (NEGATIVE); OPIATES URINE NEGATIVE (NEGATIVE); PHENCYCLIDINE URINE NEGATIVE (NEGATIVE)
[2019-05-30] MEDS: METOCLOPRAMIDE INJ 10MG/2ML VIAL (J2765) IV SCH (23:50)
[2019-05-31] MEDS: KCL 40MEQ in NS 1000ML 1,000 ML IV SCH ×2 (02:00→08:34)
[2019-05-31] MEDS: ONDANSETRON 4MG/2ML VIAL (J2405) IV SCH ×3 (02:57→14:40)
[2019-05-31 04:00] VITALS: BP 161/77
[2019-05-31] MEDS: METOCLOPRAMIDE INJ 10MG/2ML VIAL (J2765) IV SCH ×2 (05:00→12:00)
[2019-05-31 06:58] LABS: HEMATOCRIT 30.4 % (36.0-47.0); HEMOGLOBIN 9.6 g/dl (12.0-15.5); MEAN CORPUSCULAR HEMOGLOBIN 28.6 pg (27.0-33.0); MEAN CORPUSCULAR HGB CONC 31.6 g/dl (32.0-36.5); MEAN CORPUSCULAR VOLUME 90.5 fl (80.0-96.0); PLATELET COUNT, AUTOMATED 271 10^3/uL (150-450); RED BLOOD COUNT 3.36 10^6/uL (4.00-5.40); WHITE BLOOD COUNT 16.1 10^3/uL (4.0-10.0)
--- NOTE | 2019-05-31 07:15 | REP ---
Portable chest, 09:52 p.m., single AP view with the patient upright: Comparison is 06/29/2018. The lung aponte are clear. The cardiac size is normal. The darian, mediastinum, and skeletal structures are unremarkable. Impression: Negative portable chest. There is no interval change. Electronically Signed by Asad Rosario MD 05/31/2019 07:07 A
[2019-05-31 07:23] LABS: ALBUMIN 3.7 GM/DL (3.2-5.2); BILIRUBIN,TOTAL 0.8 MG/DL (0.2-1.0); CALCIUM LEVEL 8.8 MG/DL (8.5-10.1); CREATININE FOR GFR 1.34 MG/DL (0.55-1.30); GLOMERULAR FILTRATION RATE 54.9 (>58); MAGNESIUM LEVEL 1.8 MG/DL (1.8-2.4); POTASSIUM SERUM 4.5 MEQ/L (3.5-5.1); TOTAL PROTEIN 7.3 GM/DL (6.4-8.2)
--- NOTE | 2019-05-31 08:09 | HPE ---
DATE OF ADMISSION: 05/30/2019 CHIEF COMPLAINT: Vomiting. HISTORY OF PRESENT ILLNESS: This is a 48-year-old female with history of type 1 diabetes follows at [facility] with Dr. Lopez presents to the emergency room with intractable nausea and vomiting that started on Thursday about 10 times a day, non-bloody, non-mucousy, non-projectile, non-bilious. Patient denies any fevers or chills. She complains of abdominal soreness when she vomits and has had 4-5 loose diarrhea stools at home. No medications were taken for either diarrhea or nausea or vomiting. Patient has been able to eat a solid diet since Thursday. Glucose level has been high according to the patient. She otherwise denies any dysuria, urgency, frequency, sore throat, cough, shortness of breath or productive sputum. No sick contacts. No headache, changes in vision. No joint or muscle pains. No recent sick contacts and no recent travel. Patient otherwise denies any bilateral upper or lower extremity paraesthesias or weakness. Denies any polyphagia, polydipsia, or polyuria. In the emergency room (ER) she was found to be afebrile at 98.6, she was tachycardic at 136 and tachypneic at 38. Blood pressure was 125 to 139 systolic. She was saturating 100 on room air. White count of 13,000 with 83% neutrophils, no bandemia. She was hypokalemic, potassium of 3.4 with a creatinine of 1.6, A1c of 10, and glucose of 299. Urinalysis was negative for nitrite, 3 WBCs and negative bacteria, yellow in appearance. Blood cultures sent. Abdominal film 05/30/2019 shows normal bowel gas pattern. Hospitalist was called to admit for intractable nausea and vomiting as well as evaluation of patient's diarrhea. PAST MEDICAL HISTORY: Type 1 diabetic. PAST SURGICAL HISTORY: None. ALLERGIES: No known drug allergies. SOCIAL HISTORY: Smokes four cigarettes a day for the past 6 months. No alcohol use. 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 FAMILY HISTORY: Mother alive and well age 69 with diabetes. Father is 67, no medical problems. Three brothers, one sister alive and well. REVIEW OF SYSTEMS: Per history of present illness. 12 point system otherwise negative. Temperature 98.5, pulse 136, respiratory 38, blood pressure 126/70, 100% on room air. GENERALLY: Patient is awake, alert, oriented times three answering questions appropriately. She is vomiting at the bedside. No respiratory distress. No jugular venous distention (JVD) or thyromegaly. Dry mucous membranes with chapped lips. No pharyngeal erythema or tonsillar exudates. No hoarse voice. No strider on exam of the neck. LUNGS: Clear to auscultation; no wheezing, rales, or rhonchi. HEART: S1, S2, sinus tachycardia. No murmurs, rubs, or gallops. ABDOMEN: Soft, slightly distended, diffusely tender, no rebound or guarding, positive bowel sounds all four quadrants, no hepatosplenomegaly. EXTREMITIES: No cyanosis, clubbing, or any pitting edema. 48-year-old female with type 1 diabetes, dental caries in the past presents to the emergency room with 3 day history of intractable nausea, vomiting, and diarrhea. No sick contacts, recent travel, usually eats at home. Found to have acute kidney injury due to dehydration, patient will be admitted for supportive care. IMPRESSION: 1. Intractable nausea, vomiting, and diarrhea, most likely gastroenteritis. Check a GI panel, monitor for diabetic ketoacidosis (DKA) as the patient also complains of abdominal pain presenting blood work is not indicative of DKA, however, we will continue with support care with clear diet along with intravenous fluids, supplementation of electrolytes, renally dosed all medications, avoid any nonsteroidal anti-inflammatory drugs (NSAIDs) was clinically improved, may check a CT abdomen and pelvis. No empiric antibiotics. Patient's urinalysis is unimpressive. We will obtain a chest x-ray and a CT abdomen and pelvis. Check CT abdomen and pelvis to rule out colitis. With history of diabetes rule out gastroparesis, check gastric emptying scan in the morning, nothing by mouth after midnight. Continue with IV fluids. 2. Type 1 diabetic currently unclear side. We will keep on sliding scale for now. Monitor for diabetic ketoacidosis (DKA). Repeat metabolic panel, lactic acid, check acetone. Deep venous thrombosis (DVT) prophylaxis with compression stockings. 3. FULL CODE. Diet clear.
[2019-05-31] MEDS: HumaLOG INSULIN (NovoLOG) PER UNIT SC SCH ×4 (08:42→20:36)
[2019-05-31] MEDS: NS 1,000 ML IV SCH ×4 (09:00→22:44)
[2019-05-31 13:37] VITALS: BP 145/89
[2019-05-31] MEDS: HEPARIN SOD (PORCINE) 5000 UNITS/ML VIAL (J1644 PER 1000UNITS) SQ SCH ×2 (14:00→20:30)
--- NOTE | 2019-05-31 14:24 | IPNPDOC ---
Text Note Date of Service The patient was seen on 05/31/19. NOTE Subjective: Patient is a 48-year-old female with a past history of IDDM1 who presented to the ER with nausea and vomiting that started on Thursday. Patient reported associated abdominal discomfort, and loose stools. Patient was admitted to hospitalist service for further evaluation and treatment. Patient was seen and examined at the bedside. Currently, patient reports that she has not expense any further episodes of nausea and vomiting since she's been admitted. She still reports some abdominal discomfort. Denies any bowel movements. Denies chest pain, shortness of breath or palpitations. Objective: Vitals (See below) General: Lying in bed, AAOx3 HEENT: NC, AT CVS: +S1S2 Lungs: Fair air entry b/l, -w/r/r Abdomen: Soft, ND, diffuse mild tenderness Extremities: - Edema, - Calf tenderness Assessment and plan: s/p Intractable nausea and vomiting - likely 2/2 cyclic vomiting syndrome, possibly 2/2 viral gastroenteritis - Clinically patient has had significant improvement in her nausea, vomiting, a bdominal pain and diarrhea - Physical with diffuse abdominal discomfort - Lipase within normal limits - Abdominal XR 05/30: Normal bowel gas pattern. - Patient would like to pursue gastric emptying study as an outpatient - c/w IV fluids and symptomatic control with antiemetics JENNY - Cr baseline of 0.8 - 1.0 - Cr on admission of 1.64; has improved - Will avoid nephrotoxic medications - c/w IV fluid hydration IDDM1 - No evidence of DKA at this time - c/w ISS - Will add Long acting insulin for evening GI prophylaxis - Will start Protonix DVT prophylaxis - Will start Heparin VS,Fishbone, I+O VS, Fishbone, I+O Laboratory Tests 05/30/19 21:57 05/31/19 06:46 Vital Signs Date Time Temp Pulse Resp B/P (MAP) Pulse Ox O2 Delivery O2 Flow Rate FiO2 05/31/19 13:37 98.0 77 18 145/89 (107) 100 Room Air I&O- Last 24 Hours up to 6 AM 05/31/19 06:00 Intake Total 1060 ml Output Total 550 ml Balance 510 ml RAZIA YEPEZ MD May 31, 2019 14:24
[2019-05-31] MEDS: PANTOPRAZOLE 40MG TAB (PROTONIX) PO SCH ×2 (14:39→20:44)
[2019-05-31 15:45] VITALS: BP 134/77
[2019-05-31] MEDS: DICYCLOMINE 10 MG CAP PO PRN (17:11)
[2019-05-31] MEDS ORDERED: ONDANSETRON 4MG/2ML VIAL (J2405) IV PRN (18:15)
--- NOTE | 2019-05-31 18:16 | REP ---
KUB ABDOMEN AND PELVIS: KUB film of the abdomen and pelvis performed. Comparison made with prior study of 05/30/2019. There is no evidence of bowel obstruction, with no dilated bowel loops identified. Multiple phleboliths are again seen the pelvis. The visualized osseous structures are unremarkable. IMPRESSION: Negative exam. Electronically Signed by Asad Osorio MD 05/31/2019 08:23 P
[2019-05-31 18:24] LABS: BASO # 0.1 10^3/uL (0.0-0.2); BASO % 0.6 % (0.0-1.0); EOS % 0.3 % (0.0-3.0); HEMATOCRIT 25.3 % (36.0-47.0); HEMOGLOBIN 8.3 g/dl (12.0-15.5); LYMPH # 1.5 10^3/uL (1.5-5.0); LYMPH % 16.2 % (24.0-44.0); MEAN CORPUSCULAR HEMOGLOBIN 28.9 pg (27.0-33.0); MEAN CORPUSCULAR HGB CONC 32.8 g/dl (32.0-36.5); MEAN CORPUSCULAR VOLUME 88.2 fl (80.0-96.0); MONO # 0.8 10^3/uL (0.0-0.8); NEUTROPHILS # 6.7 10^3/uL (1.5-8.5); NEUTROPHILS % 73.6 % (36.0-66.0); PLATELET COUNT, AUTOMATED 248 10^3/uL (150-450); RED BLOOD COUNT 2.87 10^6/uL (4.00-5.40); WHITE BLOOD COUNT 9.1 10^3/uL (4.0-10.0)
[2019-05-31 18:46] LABS: LIPASE 81 U/L (73-393)
[2019-05-31 19:13] LABS: BLOOD UREA NITROGEN 23 MG/DL (7-18); CALCIUM LEVEL 8.6 MG/DL (8.5-10.1); CARBON DIOXIDE LEVEL 19 MEQ/L (21-32); CHLORIDE LEVEL 111 MEQ/L (98-107); CREATININE FOR GFR 1.21 MG/DL (0.55-1.30); GLOMERULAR FILTRATION RATE > 60.0 (>58); GLUCOSE, FASTING 113 MG/DL (70-100); SODIUM LEVEL 138 MEQ/L (136-145)
[2019-05-31] MEDS: METOCLOPRAMIDE INJ 10MG/2ML VIAL (J2765) IV PRN (20:28)
[2019-05-31] MEDS: CAPSAICIN 0.025% CR 60 GM TOP PRN (20:39)
[2019-05-31] MEDS ORDERED: LEVEMIR (INSULIN DETEMIR) 1 UNITS/0.01ML SC SCH (21:00)
[2019-05-31 22:00] VITALS: BP 136/79
[2019-06-01] MEDS: ACETAMINOPHEN TAB 650MG DOSE (2X325MG) PO PRN ×2 (00:23→08:25)
[2019-06-01] MEDS: CAPSAICIN 0.025% CR 60 GM TOP PRN (00:23)
[2019-06-01] MEDS: DICYCLOMINE 10 MG CAP PO PRN ×2 (00:41→08:31)
[2019-06-01] MEDS: METOCLOPRAMIDE INJ 10MG/2ML VIAL (J2765) IV PRN (05:14)
[2019-06-01] MEDS: HEPARIN SOD (PORCINE) 5000 UNITS/ML VIAL (J1644 PER 1000UNITS) SQ SCH (05:28)
[2019-06-01 06:00] VITALS: BP 138/83
[2019-06-01 07:18] LABS: HEMATOCRIT 23.1 % (36.0-47.0); HEMOGLOBIN 7.6 g/dl (12.0-15.5); MEAN CORPUSCULAR HEMOGLOBIN 28.9 pg (27.0-33.0); MEAN CORPUSCULAR HGB CONC 32.9 g/dl (32.0-36.5); MEAN CORPUSCULAR VOLUME 87.8 fl (80.0-96.0); PLATELET COUNT, AUTOMATED 212 10^3/uL (150-450); RED BLOOD COUNT 2.63 10^6/uL (4.00-5.40); WHITE BLOOD COUNT 7.2 10^3/uL (4.0-10.0)
[2019-06-01] MEDS: HumaLOG INSULIN (NovoLOG) PER UNIT SC SCH (07:30)
[2019-06-01 07:44] LABS: BASO # 0.1 10^3/uL (0.0-0.2); BASO % 0.7 % (0.0-1.0); EOS # 0.1 10^3/uL (0.0-0.5); EOS % 1.4 % (0.0-3.0); LYMPH # 1.8 10^3/uL (1.5-5.0); LYMPH % 24.8 % (24.0-44.0); MONO # 0.6 10^3/uL (0.0-0.8); NEUTROPHILS # 4.7 10^3/uL (1.5-8.5); NEUTROPHILS % 64.8 % (36.0-66.0)
[2019-06-01 07:54] LABS: ALT/SGPT 17 U/L (12-78); BILIRUBIN,TOTAL 0.6 MG/DL (0.2-1.0); BLOOD UREA NITROGEN 17 MG/DL (7-18); CALCIUM LEVEL 7.8 MG/DL (8.5-10.1); CARBON DIOXIDE LEVEL 20 MEQ/L (21-32); CHLORIDE LEVEL 114 MEQ/L (98-107); CREATININE FOR GFR 0.98 MG/DL (0.55-1.30); GLOMERULAR FILTRATION RATE > 60.0 (>58); GLUCOSE, FASTING 59 MG/DL (70-100); MAGNESIUM LEVEL 1.7 MG/DL (1.8-2.4); POTASSIUM SERUM 3.7 MEQ/L (3.5-5.1); SODIUM LEVEL 141 MEQ/L (136-145); TOTAL PROTEIN 5.4 GM/DL (6.4-8.2)
[2019-06-01] MEDS ORDERED: LORazepam 2 MG/ML VIAL (J2060) IV ONE (08:15)
[2019-06-01] MEDS: PANTOPRAZOLE 40MG TAB (PROTONIX) PO SCH (08:25)
[2019-06-01] MEDS: NS 1,000 ML IV SCH (08:26)
[2019-06-01] MEDS ORDERED: MAG SULF 1GM/100ML (MAG RUN) 1 GM in IV 1 EA IV ONE (09:00)
[2019-06-01] MEDS: GASTROGRAFIN SOLUTION 30ML PO SCH ×2 (09:00→09:30)
[2019-06-01] MEDS ORDERED: PANT40TA3 PO (10:09)
[2019-06-01] MEDS ORDERED: REGL5TAB2 PO (10:09)
[2019-06-01] MEDS ORDERED: DICY1CAP8 PO (10:09)
--- NOTE | 2019-06-01 12:14 | DS.PDOC ---
Discharge Summary General Date of Admission May 30, 2019 at 19:19 Date of Discharge 06/01/2019 Discharge Summary PROCEDURES PERFORMED DURING STAY: [None]. ADMITTING DIAGNOSES / DISCHARGE DIAGNOSES: s/p Intractable nausea and vomiting - likely 2/2 cyclic vomiting syndrome, possibly 2/2 viral gastroenteritis JENNY IDDM1 GI prophylaxis DVT prophylaxis COMPLICATIONS/CHIEF COMPLAINT: Intractable nausea and vomiting HISTORY OF PRESENT ILLNESS: Patient is a 48-year-old female with a past history of IDDM1 who presented to the ER with nausea and vomiting that started on Thursday. Patient reported associated abdominal discomfort, and loose stools. Patient was admitted to hospitalist service for further evaluation and treatment. HOSPITAL COURSE: s/p Intractable nausea and vomiting - likely 2/2 cyclic vomiting syndrome, possibly 2/2 viral gastroenteritis - Patient has not expense any episodes of vomiting over the last 24 hours - Physical without any abdominal tenderness - Lipase within normal limits - Abdominal XR 05/30: Normal bowel gas pattern. - Patient indicated that she does not want to have a gastric emptying study because it is not a problem with her motility - Patient has refused to have a CT scan completed of her abdomen; risks and benefits were discussed with the patient and again continues to refuse - Will DC IV fluids; Will c/w symptomatic control with Metoclopramide, Protonix and Dicyclomine as an outpatient PRN s/p Leukocytosis - possibly 2/2 reactive etiology - Hemodynamically stable and afebrile - Has normalized JENNY - Cr baseline of 0.8 - 1.0 - Cr on admission of 1.64; has improved - normalized - Will avoid nephrotoxic medications - Will DC IV fluid hydration IDDM1 - No evidence of DKA at this time - c/w ISS and Long acting insulin - Will resume home insulin regimen on discharge GI prophylaxis - c/w Protonix DVT prophylaxis - c/w Heparin DISCHARGE MEDICATIONS: Please see below. ALLERGIES: Please see below. PHYSICAL EXAMINATION ON DISCHARGE: Vitals (See below) General: Lying in bed, AAOx3 HEENT: NC, AT CVS: +S1S2 Lungs: Fair air entry b/l, no appreciable wheezing, rhonchi, rales Abdomen: Soft without distention or tenderness Extremities: No evidence of edema, - Calf tenderness LABORATORY DATA: Please see below. ACTIVITY: [As tolerated]. DISCHARGE PLAN: Follow up with PCP and GI within 7 days Remain compliant with treatment plan and medications Return to the ER if you experience any problems DISPOSITION: Home DISCHARGE CONDITION: [Stable]. TIME SPENT ON DISCHARGE: 35 minutes Vital Signs/I&Os Vital Signs Date Time Temp Pulse Resp B/P (MAP) Pulse Ox O2 Delivery O2 Flow Rate FiO2 06/01/19 06:00 98.8 74 17 138/83 (101) 98 Room Air I&O- Last 24 Hours up to 6 AM 06/01/19 05:59 Intake Total 2770 ml Output Total 1550 ml Balance 1220 ml Laboratory Data Labs 24H Laboratory Tests 2 05/31/19 12:13: Bedside Glucose (Misc Panel) 142H 05/31/19 16:41: Bedside Glucose (Misc Panel) 71 05/31/19 18:10: Immature Granulocyte % (Auto) 0.3, Neutrophils (%) (Auto) 73.6H, Lymphocytes (%) (Auto) 16.2L, Monocytes (%) (Auto) 9.0H, Eosinophils (%) (Auto) 0.3, Basophils (%) (Auto) 0.6, Neutrophils # (Auto) 6.7, Lymphocytes # (Auto) 1.5, Monocytes # (Auto) 0.8, Eosinophils # (Auto) 0.0, Basophils # (Auto) 0.1, Nucleated Red Blood Cells % (auto) 0.0, Anion Gap 8, Glomerular Filtration Rate > 60.0, Lactic Acid Level 1.2, Calcium Level 8.6, Lipase 81 05/31/19 20:34: Bedside Glucose (Misc Panel) 202H 06/01/19 06:47: Immature Granulocyte % (Auto) 0.3, Neutrophils (%) (Auto) 64.8, Lymphocytes (%) (Auto) 24.8, Monocytes (%) (Auto) 8.0H, Eosinophils (%) (Auto) 1.4, Basophils (%) (Auto) 0.7, Immature Granulocyte # (Auto) 0.0, Neutrophils # (Auto) 4.7, Lymphocytes # (Auto) 1.8, Monocytes # (Auto) 0.6, Eosinophils # (Auto) 0.1, Basophils # (Auto) 0.1, Nucleated Red Blood Cells % (auto) 0.0, Platelet Estimate , Anion Gap 7L, Glomerular Filtration Rate > 60.0, Calcium Level 7.8L, Magnesium Level 1.7L, Total Bilirubin 0.6, Aspartate Amino Transf (AST/SGOT) 14, Alanine Aminotransferase (ALT/SGPT) 17, Alkaline Phosphatase 49, Total Protein 5.4#L, Albumin 3.0L, Albumin/Globulin Ratio 1.25 06/01/19 11:35: Bedside Glucose (Misc Panel) 133H CBC/BMP Laboratory Tests 05/31/19 18:10 06/01/19 06:47 FSBS Laboratory Tests Test 05/31/19 12:13 05/31/19 16:41 05/31/19 20:34 06/01/19 11:35 Range/Units Bedside Glucose (Misc Panel) 142 71 202 133 70-105 MG/DL Microbiology Microbiology 05/30/19 Blood Culture - Preliminary, Resulted No growth after 24 hours . All specim... Discharge Medications Scheduled Insulin NPH Hum/Reg Insulin Hm (Novolin 70-30 100 Unit/ml Vial) 100 Unit/1 Ml Vial, 1 DOSE SC BID, (Reported) PER SLIDING SCALE Pantoprazole Sodium (Pantoprazole Sodium) 40 Mg Tablet.dr, 40 MG PO DAILY Scheduled PRN Dicyclomine HCl (Dicyclomine HCl) 10 Mg Capsule, 10 MG PO Q8HP PRN for addominal pain Metoclopramide Hcl (Reglan) 5 Mg Tablet, 1 TAB PO TID PRN for NAUSEA 1 hour prior to procedure Allergies Coded Allergies: No Known Allergies (Verified , 12/14/02) RAZIA YEPEZ MD Jun 01, 2019 12:14
== END 2019-06-01 12:00 | disposition home or self-care (01) | DRG 249 ==
LOC: M ED 12:29 → M ED INP 19:19 → ENRESERVTM 21:18 → ENRESERVDT 21:18 → M MS4PR 22:35 → M MS5PR 05-31 15:41
PROVIDERS: ADMIT General Practice; ATTEND Internal Medicine
DX: R11.15 Cyclical vomiting syndrome unrelated to migraine (principal); N17.9 Acute kidney failure, unspecified; A08.4 Viral intestinal infection, unspecified; E10.9 Type 1 diabetes mellitus without complications; F17.210 Nicotine dependence, cigarettes, uncomplicated; E87.6 Hypokalemia; Z79.4 Long term (current) use of insulin; Z79.899 Other long term (current) drug therapy

== ENCOUNTER 2019-06-03 10:58 | Inpatient (IN) | payer OTHER ==
[~2019-06-03] VITALS: Ht 170.2 cm; Wt 73.1 kg
[2019-06-03] MEDS: PANTOPRAZOLE 40MG INJ (PROTONIX) (C9113) IV SCH (09:00)
[~2019-06-03 10:58] MED LIST changes: +DICY1CAP8 PO; +NOVO1INJ4 SC; +PANT40TA3 PO
[2019-06-03] MEDS ORDERED: NS 1,000 ML IV ONE ×3 (11:30→15:00)
[2019-06-03] MEDS ORDERED: PROCHLORPERAZINE 10 MG/2 ML VIAL (J0780) IV ONE (12:00)
[2019-06-03] MEDS ORDERED: PANTOPRAZOLE 40MG INJ (PROTONIX) (C9113) IV ONE (12:00)
[2019-06-03 12:37] LABS: BASO # 0.1 10^3/uL (0.0-0.2); BASO % 0.6 % (0.0-1.0); EOS % 0.1 % (0.0-3.0); HEMATOCRIT 32.1 % (36.0-47.0); HEMOGLOBIN 10.1 g/dl (12.0-15.5); LYMPH # 0.8 10^3/uL (1.5-5.0); LYMPH % 6.2 % (24.0-44.0); MEAN CORPUSCULAR HEMOGLOBIN 28.6 pg (27.0-33.0); MEAN CORPUSCULAR HGB CONC 31.5 g/dl (32.0-36.5); MEAN CORPUSCULAR VOLUME 90.9 fl (80.0-96.0); MONO # 0.4 10^3/uL (0.0-0.8); MONO % 3.2 % (0.0-5.0); NEUTROPHILS # 10.8 10^3/uL (1.5-8.5); NEUTROPHILS % 89.6 % (36.0-66.0); PLATELET COUNT, AUTOMATED 265 10^3/uL (150-450); RED BLOOD COUNT 3.53 10^6/uL (4.00-5.40); WHITE BLOOD COUNT 12.1 10^3/uL (4.0-10.0)
[2019-06-03 12:49] LABS: VENOUS BASE EXCESS -20.7 (-2.0-2.0); VENOUS HCO3 5.9 MEQ/L (23.0-27.0); VENOUS O2 SATURATION 89.6 % (60.0-80.0); VENOUS PARTIAL PRESSURE O2 68.1 mmHg (30.0-50.0); VENOUS TOTAL CO2 6.4 MEQ/L (24.0-28.0)
[2019-06-03 12:50] LABS: OSMOLALITY SERUM 309 MOSM/KG (275-295)
[2019-06-03 12:51] LABS: HCG, SERUM QUALITATIVE NEGATIVE (NEGATIVE)
[2019-06-03 12:54] LABS: ACETONE/KETONE > 46.00 MG/DL (<2.81); ALT/SGPT 25 U/L (12-78); BILIRUBIN,DIRECT 0.3 MG/DL (0.0-0.2); BILIRUBIN,TOTAL 0.7 MG/DL (0.2-1.0); LIPASE 50 U/L (73-393); MAGNESIUM LEVEL 1.7 MG/DL (1.8-2.4); PHOSPHORUS LEVEL 4.4 MG/DL (2.5-4.9); TOTAL PROTEIN 7.2 GM/DL (6.4-8.2)
[2019-06-03] MEDS ORDERED: INSULIN HUMAN REGULAR 100 UNITS in NS 99 ML IV SCH ×4 (13:00→23:00)
[2019-06-03 13:07] LABS: HEMOGLOBIN A1c 9.9 %
[2019-06-03] MEDS ORDERED: D5W/0.45% SODIUM CHLORIDE 1,000 ML IV ONE (13:15)
--- NOTE | 2019-06-03 13:32 | REP ---
Head CT without contrast: History: Altered mental status. Comparison study: Comparison study June 28, 2018. CT findings: Bone window settings demonstrate an intact bony calvarium. There is no evidence of skull fracture or incidental bony calvarial lesion. The visualized paranasal sinuses appear clear. No intraorbital abnormality is seen. On soft tissue window setting images; the lateral, third, and fourth ventricles are normal in size and position. Osorio-white differentiation pattern is normal above and below the tentorium. There is mild physiologic calcification of the basal ganglia. There are is no evidence of intracranial hemorrhage. No mass, edema, infarction, or midline shift is seen. No extra-axial fluid collection is appreciated. Impression: Negative noncontrast head CT. Electronically Signed by Nathaniel Weaver MD 06/03/2019 01:30 P
[2019-06-03] MEDS ORDERED: REGL5TAB2 PO (14:10)
[2019-06-03] MEDS ORDERED: DICY10CA13 PO (14:10)
[2019-06-03] MEDS ORDERED: PANT40TA3 PO (14:10)
[2019-06-03] MEDS: INSULIN IV RATE CHANGE DOCUMENTATION ML/HR XX SCH ×8 (15:01→23:05)
[2019-06-03 15:16] LABS: VENOUS BASE EXCESS -23.2 (-2.0-2.0); VENOUS HCO3 5.4 MEQ/L (23.0-27.0); VENOUS PARTIAL PRESSURE CO2 19.8 mmHg (38.0-50.0); VENOUS PARTIAL PRESSURE O2 188.9 mmHg (30.0-50.0); VENOUS PH 7.057 UNITS (7.330-7.430); VENOUS STANDARD HCO3 7.8 MEQ/L; VENOUS TOTAL CO2 6.1 MEQ/L (24.0-28.0)
[2019-06-03 15:23] LABS: BLOOD UREA NITROGEN 27 MG/DL (7-18); CALCIUM LEVEL 9.2 MG/DL (8.5-10.1); CARBON DIOXIDE LEVEL 8 MEQ/L (21-32); CHLORIDE LEVEL 107 MEQ/L (98-107); CREATININE FOR GFR 1.59 MG/DL (0.55-1.30); GLOMERULAR FILTRATION RATE 45.1 (>58); GLUCOSE, FASTING 365 MG/DL (70-100); POTASSIUM SERUM 4.6 MEQ/L (3.5-5.1); SODIUM LEVEL 136 MEQ/L (136-145)
[2019-06-03 15:48] VITALS: BP 138/79
--- NOTE | 2019-06-03 15:49 | HPEPDOC ---
General Date of Admission Jun 03, 2019 at 14:37 Date of Service: Jun 03, 2019 Other Providers Abraham Lopez Attending Physician: MUKESH YEPEZ MD Chief Complaint Vomiting, Altered Mental Status Source: Patient History of Present Illness This is a 48-year-old female with history of type 1 diabetes who presented to the emergency room via EMS with intractable nausea and lethargy. She was recently hospitalized at [facility] from 05/30/2019 to 06/01/2019 for nausea and vomiting. She says that since her discharge, her symptoms have not resolved. She continues to have nausea as well as non-bloody, non-mucousy, non-projectile, and nonbilious vomitus. She has not had insulin since her discharge. She also complains of abdominal pain, that is worse when she vomits. She denies having diarrhea. She says that she hasn't been able to eat. She has not checked her glucose since her discharge. She denies any dysuria or urgency. She denies hematochezia, melena, or hematemesis. In the emergency department, she was found to be tachycardic and tachypneic with a fingerstick glucose of 356, she had an A1c of 9.9. Point of care chemistries were concerning for an anion gap of 16 and a bicarbonate of 19. Beta hydroxybutyrate was greater than 46. Venous blood gas showed a pH of 7.16, a PCO2 of 17, and HCO3 of 5.9. Hospitalist was consulted for admission due to diabetic ketoacidosis. Home Medications Scheduled Insulin NPH Hum/Reg Insulin Hm (Novolin 70-30 100 Unit/ml Vial) 100 Unit/1 Ml Vial, 1 DOSE SC BID, (Reported) PER SLIDING SCALE Pantoprazole Sodium (Pantoprazole Sodium) 40 Mg Tablet.dr, 40 MG PO DAILY, (Reported) Scheduled PRN Dicyclomine HCl (Dicyclomine HCl) 10 Mg Capsule, 10 MG PO Q8H PRN for IRRITABLE BOWEL SYNDROME, (Reported) Metoclopramide Hcl (Reglan) 5 Mg Tablet, 5 MG PO TID PRN for NAUSEA, (Reported) Allergies Coded Allergies: No Known Allergies (Verified , 06/03/19) Past Medical History Medical History Type 1 Diabetic Medical Noncompliance Surgical History None Family History Mother alive and well age 69 with diabetes. Father is 67, no medical problems. Three brothers, one sister alive and well. Social History Smokes four cigarettes a day for the past 6 months. No alcohol use. Denies drug use. Denies recent travel or sick contacts. 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 A-FIB/CHADSVASC A-FIB History Current/History of A-Fib/PAF?: No Review of Systems Other systems Constitutional: Denies weight loss, waking, fevers, chills, or night sweats Eyes: Denies visual changes, double vision, blurry vision, floaters, or feeling like a curtain pulled down. Ear nose throat: Denies runny nose, epistaxis, sinus pain, tinnitus, or odynaphasia. Endorses sore throat secondary to vomiting Cardiovascular: Denies chest pain, shortness of breath, paroxysmal nocturnal dyspnea, orthopnea, edema, or palpitations. Respiratory: Denies cough, sputum production, wheezes, hemoptysis, or shortness of breath Gastrointestinal: Endorses abdominal pain, nausea, and vomiting. Denies difficulty swallowing, loss of appetite, diarrhea, constipation, obstipation, hematemesis, hematochezia, melena, or tenesmus Musculoskeletal: Denies joint swelling, decreased range of motion, crepitus, or new arthritis Integumentary: Denies pruritus, rashes, or lesions Neuro: Denies any changes to sight/smell/hearing/taste, seizures, faint, headaches, paresthesias, anesthesias Psychiatric: Denies depression, anxiety, paranoia, anhedonia, or episodes of bonnie Endocrine: Denies diarrhea, increased appetite, tremor, palpitations, constipation, dry skin, polyuria, polyphagia. Does endorse polydipsia and incre ased thirst Hematologic: Denies any anemia, purpura, or petechiae Lymphatic: Denies any new lumps or bumps anywhere Physical Examination Other physical findings Vitals: See below General: Patient is awake, alert, oriented times three answering questions appropriately. She is vomiting at the bedside. No respiratory distress. HEENT: Dry mucous membranes with chapped lips. No thrush. Voice is soft but not hoarse. Neck: No jugular venous distention (JVD) or thyromegaly. No strider. Lungs: Clear to auscultation; no wheezing, rales, or rhonchi. Not tachypneic on exam Heart: Regular rhythm, mildly tachycardic. No murmurs, rubs, or gallops. Abdomen: Soft, hyperactive bowel sounds, mild tenderness to palpation of the left upper quadrant, no rebound or guarding, no hepatosplenomegaly. Extremities: No cyanosis, clubbing, or any pitting edema. Neuro: Muscle strength 5 out of 5 throughout, cranial nerves II through XII grossly intact, sensation intact throughout Vital Signs Vital Signs Date Time Temp Pulse Resp B/P (MAP) Pulse Ox O2 Delivery O2 Flow Rate FiO2 06/03/19 13:07 125 101/61 (74) 100 06/03/19 13:00 18 Room Air 06/03/19 11:10 96.0 Laboratory Data Labs 24H Laboratory Tests 2 06/03/19 11:12: Bedside Glucose (Misc Panel) 356H 06/03/19 11:36: Immature Granulocyte % (Auto) 0.3, Neutrophils (%) (Auto) 89.6H, Lymphocytes (%) (Auto) 6.2L, Monocytes (%) (Auto) 3.2, Eosinophils (%) (Auto) 0.1, Basophils (%) (Auto) 0.6, Neutrophils # (Auto) 10.8H, Lymphocytes # (Auto) 0.8L, Monocytes # (Auto) 0.4, Eosinophils # (Auto) 0.0, Basophils # (Auto) 0.1, Nucleated Red Blood Cells % (auto) 0.0 06/03/19 11:48: Osmolality 309H, Phosphorus Level 4.4, Magnesium Level 1.7L, Total Bilirubin 0.7, Direct Bilirubin 0.3H, Aspartate Amino Transf (AST/SGOT) 28, Alanine Aminotransferase (ALT/SGPT) 25, Alkaline Phosphatase 71, Total Protein 7.2#, Albumin 4.0#, Albumin/Globulin Ratio 1.25, Lipase 50L, B-Hydroxybutyrate > 46.00H 06/03/19 12:19: Human Chorionic Gonadotropin, Qual NEGATIVE 06/03/19 12:40: Bedside Glucose (Misc Panel) 342H 06/03/19 12:42: Blood Gas Bicarbonate Standard 9.0, Venous Blood pH 7.160L, Venous Blood Partial Pressure CO2 17.0L, Venous Blood Partial Pressure O2 68.1H, Venous Blood Total Carbon Dioxide 6.4L, Venous Blood HCO3 5.9L, Venous Blood Oxygen Saturation 89.6H, Venous Blood Base Excess -20.7L, Estimated Mean Plasma Glucose 237H, Hemoglobin A1c 9.9 06/03/19 12:45: POC Glucose (Misc Panel) 367H, POC Sodium (Misc Panel) 135L, POC Potassium (Misc Panel) 4.7, POC Chloride (Misc Panel) 110H, POC Total CO2 (Misc Panel) 9.0L, POC Blood Urea Nitrogen (Misc Panel 26, POC Ionized Calcium (Misc Panel) 4.8, POC Creatinine (Misc Panel) 1.4H, POC Hematocrit (Misc Panel) 31.0L 06/03/19 12:48: POC Beta HCG, Quantitative < 5.0 06/03/19 14:02: Bedside Glucose (Misc Panel) 369H 06/03/19 14:59: Bedside Glucose (Misc Panel) 337H CBC/BMP Laboratory Tests 06/03/19 11:36 Microbiology Microbiology 06/03/19 Blood Culture, Received Pending 06/03/19 Blood Culture, Received Pending Assessment/Plan Assessment: 48-year-old female with type 1 diabetic with continued nausea and vomiting, recently discharged from [facility] on 06/01/2019. In the emergency department she was found to be in diabetic ketoacidosis, so was admitted to the hospital. Plan: 1. Diabetic ketoacidosis. Most likely from not using her insulin since her di scharge, with continued nausea and vomiting. Continue with IV fluid hydration and insulin drip via DKA protocol. Fingersticks every hour, with every 4 hour BMPs. 2. Acute kidney injury, most likely secondary to dehydration. Baseline creatinine less than 1. IV fluids as above. Avoid nephrotoxic medications. 3. Intractable nausea and vomiting. Most likely secondary to complications from her uncontrolled diabetes, and medical noncompliance. We will rule out infectious causes with a respiratory panel and GI panel, she was recently hospitalized. On exam and does not seem to have any type of respiratory infection. Strongly suspect gastroparesis, will do a gastric emptying study. Reglan as ordered 4. Deep venous thrombosis (DVT) prophylaxis with compression stockings. 5. FULL CODE Disposition: Pending clinical improvement, admission to the ICU Plan / VTE VTE Prophylaxis Ordered?: Yes GME ATTESTATION GME ATTESTATION My faculty preceptor for this patient encounter was physically present during the encounter and was fully available. All aspects of the patient interview, examination, medical decision making process, and medical care plan development were reviewed and approved by the faculty preceptor. The faculty preceptor is aware and concurs with the plan as stated in the body of this note and will attest to such by his/her cosignature. ATTENDING NOTE I, Mukesh Yepez, have independently examined this patient and performed my own physical exam, as well as reviewed the documentation and edited where necessary. I have discussed in detail with the resident / student the findings and plan of treatment as documented by the resident / student and edited their note. I agree with their findings and treatment plan and have edited their documentation. I will continue to follow the patient during this hospital stay. Patient was admitted to the hospitalist service after she presented again for nausea and vomiting. After discussing with the patient she indicated that because of the weather she was unable to get her Reglan filled and continued to experience further vomiting. She had stopped taking her insulin at home because she had measured her glucose and was noted to be the 280s. Patient continued to experience these symptoms until she was became weak. She told her daughter to contact EMS. Upon arrival patient was found to have an elevated anion gap and a decreased bicarbonate level. Patient was admitted to the ICU for DKA management. Patient has been started on an insulin drip, fluids, and frequent blood checks to ensure closure of anion gap and resolution of DKA. Will check for infectious source (CXR, UA, Urine culture, Blood cultures x2) Evaluate for nausea and vomiting; Lipase, Abdominal XR, US abdomen - Patient has reported an allergic reaction to gastric emptying study material - Consulted gastroenterology for further assistance Case was discussed in detail with patient and with her permission, her father. I have addressed all their questions and concerns. Critical care time of 64 minutes GWEN WELLS D.O. Jun 03, 2019 15:49 MUKESH YEPEZ MD Jun 03, 2019 18:13
[2019-06-03] MEDS ORDERED: MAG SULF 1GM/100ML (MAG RUN) 1 GM in IV 1 EA IV ONE ×2 (16:00→18:00)
[2019-06-03] MEDS ORDERED: NS 1,000 ML IV SCH (16:00)
[2019-06-03] MEDS ORDERED: KCL 40MEQ in NS 1000ML 1,000 ML IV SCH (16:00)
[2019-06-03 16:53] VITALS: BP 110/79
[2019-06-03 16:59] LABS: VENOUS BASE EXCESS -20.7 (-2.0-2.0); VENOUS HCO3 7.5 MEQ/L (23.0-27.0); VENOUS O2 SATURATION 91.4 % (60.0-80.0); VENOUS PARTIAL PRESSURE O2 75.3 mmHg (30.0-50.0); VENOUS PH 7.093 UNITS (7.330-7.430); VENOUS TOTAL CO2 8.2 MEQ/L (24.0-28.0)
[2019-06-03 17:13] LABS: BASO % 0.2 % (0.0-1.0); HEMATOCRIT 29.6 % (36.0-47.0); HEMOGLOBIN 9.4 g/dl (12.0-15.5); LYMPH # 0.8 10^3/uL (1.5-5.0); LYMPH % 5.4 % (24.0-44.0); MEAN CORPUSCULAR HEMOGLOBIN 28.3 pg (27.0-33.0); MEAN CORPUSCULAR HGB CONC 31.8 g/dl (32.0-36.5); MEAN CORPUSCULAR VOLUME 89.2 fl (80.0-96.0); MONO # 0.6 10^3/uL (0.0-0.8); NEUTROPHILS # 13.1 10^3/uL (1.5-8.5); NEUTROPHILS % 89.9 % (36.0-66.0); PLATELET COUNT, AUTOMATED 189 10^3/uL (150-450); RED BLOOD COUNT 3.32 10^6/uL (4.00-5.40); WHITE BLOOD COUNT 14.6 10^3/uL (4.0-10.0)
[2019-06-03] MEDS ORDERED: EXCEDRIN MIGRAINE TABLET PO PRN (17:15)
[2019-06-03 17:34] LABS: ACETONE/KETONE > 46.00 MG/DL (<2.81); BLOOD UREA NITROGEN 30 MG/DL (7-18); CARBON DIOXIDE LEVEL 9 MEQ/L (21-32); CHLORIDE LEVEL 110 MEQ/L (98-107); CREATININE FOR GFR 1.59 MG/DL (0.55-1.30); GLOMERULAR FILTRATION RATE 45.1 (>58); GLUCOSE, FASTING 233 MG/DL (70-100); MAGNESIUM LEVEL 1.7 MG/DL (1.8-2.4); PHOSPHORUS LEVEL 3.5 MG/DL (2.5-4.9); POTASSIUM SERUM 3.9 MEQ/L (3.5-5.1); SODIUM LEVEL 141 MEQ/L (136-145)
[2019-06-03] MEDS ORDERED: POTASSIUM CHLORIDE INJ 20 MEQ in D5W/0.45% SODIUM CHLORIDE 1,000 ML IV SCH (17:45)
[2019-06-03 17:57] LABS: FERRITIN 64 NG/ML (8-252); IRON (FE) 38 UG/DL (50-170); PERCENT SATURATION 14.4 % (13.2-45.0); TOTAL IRON BINDING CAPACITY 264 UG/DL (250-450)
[2019-06-03] MEDS ORDERED: POTASSIUM CHLORIDE 10% LIQ 20 MEQ/15 ML UDC PO ONE (18:00)
[2019-06-03] MEDS ORDERED: MAGNESIUM OXIDE 400 MG TAB (MAG-OX) PO ONE (18:00)
[2019-06-03 18:36] LABS: VITAMIN B12 LEVEL > 2000 PG/ML
[2019-06-03 18:37] LABS: FOLATE 15.5 NG/ML
--- NOTE | 2019-06-03 19:09 | REP ---
KUB abdomen and pelvis: KUB film of abdomen and pelvis performed. No dilated small bowel loops are seen. Bowel gas pattern is unremarkable with no evidence of small bowel obstruction. Phleboliths are seen in the pelvis. There are mild degenerative changes of the hips. IMPRESSION: No evidence of bowel obstruction. Electronically Signed by Asad Osorio MD 06/03/2019 07:17 P
[2019-06-03] MEDS: KCL 10MEQ/100ML SWI (KRUN) 10 MEQ in IV 1 EA IV SCH ×2 (19:10→20:09)
--- NOTE | 2019-06-03 19:10 | REP ---
CHEST, SINGLE VIEW: There is no evidence of acute infiltrate. No pleural effusion is seen. The heart is normal in size. The mediastinal silhouette is unremarkable. The visualized osseous structures are intact. IMPRESSION: No acute pulmonary disease. Electronically Signed by Asad Osorio MD 06/03/2019 07:17 P
[2019-06-03] MEDS: POTASSIUM CHLORIDE INJ 40 MEQ in D5W/0.45% SODIUM CHLORIDE 1,000 ML IV SCH (19:12)
[2019-06-03] MEDS: METOCLOPRAMIDE INJ 10MG/2ML VIAL (J2765) IV PRN (19:41)
[2019-06-03 19:52] LABS: VENOUS BASE EXCESS -12.6 (-2.0-2.0); VENOUS HCO3 11.8 MEQ/L (23.0-27.0); VENOUS O2 SATURATION 98.5 % (60.0-80.0); VENOUS PARTIAL PRESSURE CO2 23.2 mmHg (38.0-50.0); VENOUS PARTIAL PRESSURE O2 128.2 mmHg (30.0-50.0); VENOUS PH 7.326 UNITS (7.330-7.430); VENOUS STANDARD HCO3 14.5 MEQ/L; VENOUS TOTAL CO2 12.6 MEQ/L (24.0-28.0)
[2019-06-03 20:00] VITALS: BP 114/67
[2019-06-03] MEDS: RAMELTEON 8 MG TAB (ROZEREM) PO SCH (20:09)
[2019-06-03 20:27] LABS: ACETONE/KETONE 35.38 MG/DL (<2.81); BLOOD UREA NITROGEN 28 MG/DL (7-18); CALCIUM LEVEL 8.5 MG/DL (8.5-10.1); CARBON DIOXIDE LEVEL 14 MEQ/L (21-32); CHLORIDE LEVEL 113 MEQ/L (98-107); CREATININE FOR GFR 1.42 MG/DL (0.55-1.30); GLOMERULAR FILTRATION RATE 51.4 (>58); GLUCOSE, FASTING 118 MG/DL (70-100); MAGNESIUM LEVEL 2.1 MG/DL (1.8-2.4); PHOSPHORUS LEVEL 2.1 MG/DL (2.5-4.9); POTASSIUM SERUM 4.3 MEQ/L (3.5-5.1); SODIUM LEVEL 140 MEQ/L (136-145); TROPONIN I < 0.02 NG/ML (< 0.10)
--- NOTE | 2019-06-03 21:31 | REPVR ---
PROCEDURE INFORMATION: Exam: US Abdomen Limited, Right Upper Quadrant Exam date and time: 06/03/19 (7:44pm) Clinical indication: Nausea and vomiting TECHNIQUE: Imaging protocol: Real-time ultrasound of the abdomen with image documentation. Examination was focused on the right upper quadrant. The Limited examination, done with portable technique. The patient was not fully cooperative. COMPARISON: US RENAL of 12/28/13 FINDINGS: The liver is visually normal in size and texture. The gallbladder has normal wall thickness (2.6 mm), with no stones nor sludge seen. No pericholecystic fluid is appreciated. The sonographic Richards's sign is reported to be (-). The CBD is not dilated (3.9 mm diameter). No pancreatic mass. The pancreatic duct is mildly dilated (3.2 mm diameter). The right kidney measures 10.4 cm in length, with no hydronephrosis appreciated. No ascites is seen. IMPRESSION: No acute pathology. No evidence of cholecystitis. The gallbladder is unremarkable, with no stones identified. No biliary obstruction. Electronically signed by: Marissa Farrar On 06/03/2019 21:30:51 PM
[2019-06-04] VITALS: BP 118/68
[2019-06-04] MEDS: INSULIN IV RATE CHANGE DOCUMENTATION ML/HR XX SCH ×3 (00:15→04:12)
[2019-06-04 00:24] LABS: VENOUS BASE EXCESS -11.7 (-2.0-2.0); VENOUS HCO3 13.5 MEQ/L (23.0-27.0); VENOUS O2 SATURATION 99.2 % (60.0-80.0); VENOUS PARTIAL PRESSURE CO2 27.8 mmHg (38.0-50.0); VENOUS PARTIAL PRESSURE O2 204.5 mmHg (30.0-50.0); VENOUS PH 7.303 UNITS (7.330-7.430); VENOUS STANDARD HCO3 15.1 MEQ/L; VENOUS TOTAL CO2 14.3 MEQ/L (24.0-28.0)
[2019-06-04 00:53] LABS: ACETONE/KETONE 22.57 MG/DL (<2.81); CREATININE FOR GFR 1.4 MG/DL (0.55-1.30); GLOMERULAR FILTRATION RATE 52.2 (>58); PHOSPHORUS LEVEL 1.3 MG/DL (2.5-4.9); POTASSIUM SERUM 4.6 MEQ/L (3.5-5.1)
[2019-06-04] MEDS: POTASSIUM CHLORIDE INJ 40 MEQ in D5W/0.45% SODIUM CHLORIDE 1,000 ML IV SCH ×2 (00:54→05:05)
[2019-06-04] MEDS ORDERED: K-PHOS NEUTRAL 250MG TABLET (SOD.PHOSPHATE/POT.PHOSPHATE) PO SCH ×2 (01:00→05:45)
[2019-06-04 04:00] VITALS: BP 110/68
[2019-06-04 04:32] LABS: VENOUS BASE EXCESS -8.2 (-2.0-2.0); VENOUS HCO3 16.3 MEQ/L (23.0-27.0); VENOUS O2 SATURATION 99.4 % (60.0-80.0); VENOUS PARTIAL PRESSURE CO2 29.6 mmHg (38.0-50.0); VENOUS PARTIAL PRESSURE O2 224.5 mmHg (30.0-50.0); VENOUS PH 7.359 UNITS (7.330-7.430); VENOUS STANDARD HCO3 17.8 MEQ/L; VENOUS TOTAL CO2 17.2 MEQ/L (24.0-28.0)
[2019-06-04 04:35] LABS: BASO % 0.2 % (0.0-1.0); EOS # 0.1 10^3/uL (0.0-0.5); EOS % 1.1 % (0.0-3.0); LYMPH # 1.4 10^3/uL (1.5-5.0); LYMPH % 13.3 % (24.0-44.0); MEAN CORPUSCULAR HEMOGLOBIN 29.3 pg (27.0-33.0); MEAN CORPUSCULAR HGB CONC 34.8 g/dl (32.0-36.5); MEAN CORPUSCULAR VOLUME 84.2 fl (80.0-96.0); MONO % 9.4 % (0.0-5.0); NEUTROPHILS # 7.8 10^3/uL (1.5-8.5); NEUTROPHILS % 75.7 % (36.0-66.0); PLATELET COUNT, AUTOMATED 219 10^3/uL (150-450); RED BLOOD COUNT 2.73 10^6/uL (4.00-5.40); WHITE BLOOD COUNT 10.3 10^3/uL (4.0-10.0)
[2019-06-04 05:09] LABS: ACETONE/KETONE 0.57 MG/DL (<2.81); CALCIUM LEVEL 7.9 MG/DL (8.5-10.1); CREATININE FOR GFR 1.39 MG/DL (0.55-1.30); GLOMERULAR FILTRATION RATE 52.6 (>58); MAGNESIUM LEVEL 1.8 MG/DL (1.8-2.4); POTASSIUM SERUM 4.7 MEQ/L (3.5-5.1)
[2019-06-04] MEDS ORDERED: GLUCAGON FOR INJ 1 MG VIAL (J1610) SC PRN (05:30)
[2019-06-04] MEDS ORDERED: DEXTROSE 50% 50 ML SYRINGE IV PRN (05:30)
[2019-06-04] MEDS ORDERED: GLUCOSE 4 GM CHEW TABLET PO PRN (05:30)
[2019-06-04] MEDS ORDERED: POTASSIUM PHOSPHATE INJ 30 MMOL in D5W 500 ML IV ONE (06:30)
--- NOTE | 2019-06-04 07:18 | ECGEPIP ---
[facility] - ED Test Date: 2019-06-03 Pat Name: CHINMYA CHEST Department: Room: - Gender: Female [employer]: sb : 1970 Requested By: Cyndy Cloud Order Number: [id number] Reading MD: Cyndy Cloud Measurements Intervals [place] Rate: 106 P: 77 AK: 158 QRS: 58 QRSD: 77 T: 64 QT: 336 QTc: 447 Interpretive Statements SINUS TACHYCARDIA LOW QRS VOLTAGE IN PRECORDIAL LEADS SEPTAL MYOCARDIAL INFARCTION, PROBABLY OLD LIMITED COMPARISON TO PRIOR 06/29/18 GIVEN ARTIFACT Electronically Signed on 06-04-2019 7:18:35 EST by Cyndy Cloud
[2019-06-04] MEDS ORDERED: LEVEMIR (INSULIN DETEMIR) 1 UNITS/0.01ML SC ONE (07:30)
[2019-06-04] MEDS ORDERED: HumaLOG INSULIN (NovoLOG) PER UNIT SC SCH ×4 (07:30→21:00)
[2019-06-04 08:00] VITALS: BP 124/73
[2019-06-04] MEDS: METOCLOPRAMIDE INJ 10MG/2ML VIAL (J2765) IV PRN (08:26)
[2019-06-04] MEDS: PANTOPRAZOLE 40MG INJ (PROTONIX) (C9113) IV SCH (08:26)
--- NOTE | 2019-06-04 10:16 | IPNPDOC ---
Text Note Date of Service The patient was seen on 06/04/19. NOTE Subjective: Patient is seen and examined at bedside in the ICU. There have been no events overnight, her anion gap closed around midnight. She has not eaten yet, but is going to be ordering breakfast. She reports that her nausea has improved. She feels more hydrated. Objective: Vitals: See below General: Patient is awake, alert, oriented times three; answering questions appropriately. She is in no acute distress, lying comfortably in bed in the ICU HEENT: Mucous membranes are moist, lips are still mildly chapped. No thrush. Voice is soft but not hoarse. Neck: No jugular venous distention (JVD) or thyromegaly. No stridor. Lungs: Clear to auscultation; no wheezing, rales, or rhonchi. Heart: Regular rate and rhythm. No murmurs, rubs, or gallops. Abdomen: Soft, normoactive bowel sounds, no tenderness, no rebound or guarding, no hepatosplenomegaly. Extremities: No cyanosis, clubbing, or any pitting edema. Neuro: Muscle strength 5 out of 5 throughout, cranial nerves II through XII grossly intact, sensation intact throughout Skin: Normal turgor and tone Assessment: 48-year-old female with type 1 diabetic with continued nausea and vomiting, recently discharged from [facility] on 06/01/2019. In the emergency department she was found to be in diabetic ketoacidosis, so was admitted to the hospital. Plan: 1. Diabetic ketoacidosis. Most likely from not using her insulin since her discharge, with continued nausea and vomiting. - Anion gap closed - Plan for long-acting insulin with breakfast, discontinue insulin drip 2 hours after her meal if noon labs stable 2. Acute kidney injury, most likely secondary to dehydration/DKA. Baseline creatinine around 1. IV fluids as above. Avoid nephrotoxic medications. 3. Intractable nausea and vomiting. Most likely secondary to complications from her uncontrolled diabetes, and medical noncompliance. - GI and respiratory panels negative. Blood cultures pending. - Abdominal ultrasound showed no acute pathology or evidence of cholecystitis, no biliary obstruction. - Chest x-ray was negative - Abdominal x-ray showed no evidence of bowel obstruction - Strongly suspect gastroparesis, have consulted Dr. Miles from gastroenterology as she has reported an allergic reaction to gastric emptying study material. - Reglan as ordered Electrolyte abnormalities - Hypomagnesemia / Hypophosphatemia - Will supplement 4. Deep venous thrombosis (DVT) prophylaxis with compression stockings. 5. FULL CODE Disposition: Pending clinical improvement, recommendations from gastroenterology Milena CRUZ, I+O Milena CRUZ I+O Laboratory Tests 06/03/19 11:36 06/03/19 11:48 06/03/19 16:50 06/03/19 19:44 06/04/19 00:15 06/04/19 04:12 Vital Signs Date Time Temp Pulse Resp B/P (MAP) Pulse Ox O2 Delivery O2 Flow Rate FiO2 06/04/19 08:00 98.6 86 16 124/73 (90) 100 Room Air I&O- Last 24 Hours up to 6 AM 06/04/19 06:00 Intake Total 4969 ml Output Total 500 ml Balance 4469 ml GME ATTESTATION GME ATTESTATION My faculty preceptor for this patient encounter was physically present during the encounter and was fully available. All aspects of the patient interview, examination, medical decision making process, and medical care plan development were reviewed and approved by the faculty preceptor. The faculty preceptor is aware and concurs with the plan as stated in the body of this note and will attest to such by his/her cosignature. ATTENDING NOTE I, Mukesh Richard, have independently examined this patient and performed my own physical exam, as well as reviewed the documentation and edited where necessary. I have discussed in detail with the resident / student the findings and plan of treatment as documented by the resident / student and edited their note. I agree with their findings and treatment plan and have edited their documentation. I will continue to follow the patient during this hospital stay. GWEN WELLS D.O. Jun 04, 2019 10:16 MUKESH RICHARD MD Jun 04, 2019 17:05
[2019-06-04] MEDS ORDERED: ONDANSETRON 4MG/2ML VIAL (J2405) IV PRN (10:45)
[2019-06-04 12:00] VITALS: BP 110/72
[2019-06-04 12:01] LABS: VENOUS BASE EXCESS -9.7 (-2.0-2.0); VENOUS HCO3 14.9 MEQ/L (23.0-27.0); VENOUS O2 SATURATION 98.3 % (60.0-80.0); VENOUS PARTIAL PRESSURE CO2 28.2 mmHg (38.0-50.0); VENOUS PARTIAL PRESSURE O2 116.8 mmHg (30.0-50.0); VENOUS PH 7.342 UNITS (7.330-7.430); VENOUS STANDARD HCO3 16.7 MEQ/L; VENOUS TOTAL CO2 15.8 MEQ/L (24.0-28.0)
[2019-06-04 12:39] LABS: ACETONE/KETONE 8.71 MG/DL (<2.81); BLOOD UREA NITROGEN 19 MG/DL (7-18); CALCIUM LEVEL 8.2 MG/DL (8.5-10.1); CARBON DIOXIDE LEVEL 19 MEQ/L (21-32); CHLORIDE LEVEL 111 MEQ/L (98-107); CREATININE FOR GFR 1.18 MG/DL (0.55-1.30); GLOMERULAR FILTRATION RATE > 60.0 (>58); GLUCOSE, FASTING 133 MG/DL (70-100); MAGNESIUM LEVEL 1.5 MG/DL (1.8-2.4); PHOSPHORUS LEVEL 3.6 MG/DL (2.5-4.9); POTASSIUM SERUM 5.1 MEQ/L (3.5-5.1); SODIUM LEVEL 136 MEQ/L (136-145)
[2019-06-04] MEDS: MAG SULF 1GM/100ML (MAG RUN) 1 GM in IV 1 EA IV SCH ×2 (13:16→14:12)
[2019-06-04] MEDS ORDERED: POTASSIUM CHLORIDE INJ 40 MEQ in NS 1,000 ML IV SCH (14:00)
[2019-06-04] MEDS: D5W/0.45% SODIUM CHLORIDE 1,000 ML IV SCH ×2 (14:12→22:32)
[2019-06-04 16:00] VITALS: BP 131/79
[2019-06-04 16:25] LABS: VENOUS BASE EXCESS -8.9 (-2.0-2.0); VENOUS HCO3 15.4 MEQ/L (23.0-27.0); VENOUS O2 SATURATION 98.5 % (60.0-80.0); VENOUS PARTIAL PRESSURE CO2 28.1 mmHg (38.0-50.0); VENOUS PARTIAL PRESSURE O2 122.1 mmHg (30.0-50.0); VENOUS PH 7.358 UNITS (7.330-7.430); VENOUS STANDARD HCO3 17.2 MEQ/L; VENOUS TOTAL CO2 16.3 MEQ/L (24.0-28.0)
[2019-06-04 16:58] LABS: ACETONE/KETONE 7.08 MG/DL (<2.81); BLOOD UREA NITROGEN 16 MG/DL (7-18); CARBON DIOXIDE LEVEL 18 MEQ/L (21-32); CHLORIDE LEVEL 110 MEQ/L (98-107); CREATININE FOR GFR 1.13 MG/DL (0.55-1.30); GLOMERULAR FILTRATION RATE > 60.0 (>58); GLUCOSE, FASTING 158 MG/DL (70-100); MAGNESIUM LEVEL 2.3 MG/DL (1.8-2.4); POTASSIUM SERUM 4.3 MEQ/L (3.5-5.1); SODIUM LEVEL 136 MEQ/L (136-145)
[2019-06-04] MEDS: HumaLOG INSULIN (NovoLOG) PER UNIT SC SCH (18:20)
[2019-06-04] MEDS ORDERED: SODIUM PHOSPHATE INJ 30 MMOL in D5W 500 ML IV ONE (18:30)
[2019-06-04 20:05] VITALS: BP_SYST 118; BP_SYST 149; BP_DIAS 74; BP_DIAS 82
[2019-06-04] MEDS ORDERED: LEVEMIR (INSULIN DETEMIR) 1 UNITS/0.01ML SC SCH (21:00)
[2019-06-04] MEDS: NEUTRA-PHOS 1.5 GM PACKET PO SCH (22:31)
[2019-06-04] MEDS: RAMELTEON 8 MG TAB (ROZEREM) PO SCH (22:31)
[2019-06-05 06:00] VITALS: BP 109/65
[2019-06-05 06:38] LABS: BASO % 0.5 % (0.0-1.0); EOS # 0.3 10^3/uL (0.0-0.5); EOS % 4.6 % (0.0-3.0); HEMATOCRIT 24.3 % (36.0-47.0); HEMOGLOBIN 8.3 g/dl (12.0-15.5); LYMPH # 1.7 10^3/uL (1.5-5.0); LYMPH % 28.8 % (24.0-44.0); MEAN CORPUSCULAR HEMOGLOBIN 28.8 pg (27.0-33.0); MEAN CORPUSCULAR HGB CONC 34.2 g/dl (32.0-36.5); MEAN CORPUSCULAR VOLUME 84.4 fl (80.0-96.0); MONO # 0.5 10^3/uL (0.0-0.8); MONO % 8.4 % (0.0-5.0); NEUTROPHILS # 3.4 10^3/uL (1.5-8.5); NEUTROPHILS % 57.5 % (36.0-66.0); PLATELET COUNT, AUTOMATED 209 10^3/uL (150-450); RED BLOOD COUNT 2.88 10^6/uL (4.00-5.40); WHITE BLOOD COUNT 5.9 10^3/uL (4.0-10.0)
[2019-06-05] MEDS: HumaLOG INSULIN (NovoLOG) PER UNIT SC SCH ×2 (07:30→12:11)
[2019-06-05 07:42] LABS: ACETONE/KETONE 0.96 MG/DL (<2.81); BLOOD UREA NITROGEN 10 MG/DL (7-18); CALCIUM LEVEL 8.3 MG/DL (8.5-10.1); CARBON DIOXIDE LEVEL 21 MEQ/L (21-32); CHLORIDE LEVEL 112 MEQ/L (98-107); CREATININE FOR GFR 1.03 MG/DL (0.55-1.30); GLOMERULAR FILTRATION RATE > 60.0 (>58); GLUCOSE, FASTING 70 MG/DL (70-100); MAGNESIUM LEVEL 1.6 MG/DL (1.8-2.4); PHOSPHORUS LEVEL 3.4 MG/DL (2.5-4.9); POTASSIUM SERUM 3.6 MEQ/L (3.5-5.1); SODIUM LEVEL 139 MEQ/L (136-145)
[2019-06-05 07:42] LABS: VENOUS PARTIAL PRESSURE CO2 30.3 mmHg (38.0-50.0); VENOUS PARTIAL PRESSURE O2 159.4 mmHg (30.0-50.0); VENOUS PH 7.434 UNITS (7.330-7.430)
[2019-06-05 07:43] LABS: VENOUS BASE EXCESS -3.8 (-2.0-2.0); VENOUS HCO3 19.8 MEQ/L (23.0-27.0); VENOUS STANDARD HCO3 21.3 MEQ/L; VENOUS TOTAL CO2 20.8 MEQ/L (24.0-28.0)
[2019-06-05] MEDS: D5W/0.45% SODIUM CHLORIDE 1,000 ML IV SCH (07:48)
[2019-06-05] MEDS ORDERED: MAG SULF 1GM/100ML (MAG RUN) 1 GM in IV 1 EA IV ONE (08:00)
[2019-06-05] MEDS ORDERED: LEVEMIR (INSULIN DETEMIR) 1 UNITS/0.01ML SC ONE (08:00)
[2019-06-05] MEDS ORDERED: LEVEMIR (INSULIN DETEMIR) 1 UNITS/0.01ML As Ordered ONE (08:25)
[2019-06-05] MEDS: PANTOPRAZOLE 40MG INJ (PROTONIX) (C9113) IV SCH (08:30)
[2019-06-05] MEDS: NEUTRA-PHOS 1.5 GM PACKET PO SCH (08:31)
[2019-06-05] MEDS ORDERED: MAGNESIUM OXIDE 400 MG TAB (MAG-OX) PO SCH (09:00)
--- NOTE | 2019-06-05 13:38 | CR.PDOC ---
General Date of Consultation: Jun 04, 2019 Referring Provider: RAZIA RICHARD MD Attending Physician: CÉSAR ZAVALA MD Consultation Primary physician/ hospitalist: -Dr. Richard Reason for consult: -Persistent/recurrent episodes of nausea and vomiting. HPI: 48-year-old female patient with DM type I, (poorly controlled, last hemoglobin A1c 9.9 in May 2019), prior suspicion for gastroparesis (last gastric emptying study noted in [facility] in 2008 - normal, last EGD in [address] Gomez -- normal), had recurrent hospitalizations for nausea and vomiting with the DKA, is now again admitted with DKA and symptoms of persistent nausea and nonbloody vomiting. Patient did not take her insulin, since her last discharge and is noted to be in DKA, being managed in ICU. Upon examination in ICU, patient reports improvement in nausea and vomiting since her hospitalization, and able to tolerate clear liquid diet. Patient denies any further abdominal pain and also denies taking any OTC medications, NSAIDs or any herbal supplements. Pertinent negative GI symptoms: Patient denies fever, sick contacts, recent travel, diarrhea, loss of appetite, early satiety or unintentional weight loss. No history of hematemesis, melena or hematochezia. Patient reports regular bowel movements. Review of Systems: GI: as stated above CVS: No chest pain, No palpitations, No leg swelling. RS: No Shortness of breath, No Wheezing, no cough REFERENCE AND INSTRUCTION LIBRARIAN: No dizziness, No motor weakness, No sensory problems Hematology: No bruising, No gum bleeding, Musculoskeletal: No joint pain, ambulating well. Skin: No rash : No hematuria, No burning sensation of the urine ENT: No ear discharge/ pain, No dysphagia. Eyes: No photophobia. Jaundice Home medications: reviewed. Antithrombotic agents: -None Medical h/o: As above. Surgical h/o: None on abdomen. Social h/o: Alcohol: -. Denies, smoking:, Active smoker, IVDA/ drugs: Denies.. Family h/o of GI cancers - None Prior Endoscopies: --- EGD: - Had at least 2 EGDs done in [facility], in [address] Vernon and in [address] Gomez -- --- Colonoscopy: -None in [facility] Prior GI evaluations: -Was seen as inpatient in [facility] in the past by Dr. Gomez and Dr. Vernon Exam: Vitals: reviewed General: Alert and oriented x 3, not in distress HEENT: NO pallor, no icterus. Normal oropharynx, NO cervical lymph nodes. Chest: symmetric with bilateral clear air entry, CVS: S1, S2 heard, normal, no murmurs . Abdomen: non-distended, no surgical scars, soft, non-tender, no palpable masses, normal bowel sounds heard. Rectal exam: Patient refused / Deferred at this time in view of scheduled colonoscopy. Extremities: no pedal edema, pulses palpable. REFERENCE AND INSTRUCTION LIBRARIAN: no focal motor or sensory deficits. Moves all extremities Skin: no rash. Labs: reviewed. Imaging: reviewed. Impression: - Persistent nausea and vomiting, and a patient with EKG, chronic DM type I, poorly controlled, with electrolyte abnormalities, likely multifactorial.. DDx -- Related DKA vs PUD vs Gastritis vs H. pyloir vs Gastroparesis vs hiatal hernia. - Chronic anemia, normocytic, normal iron studies. The past Recommendations: - Patient educated about the test results, possible differential diagnoses and All questions answered. - Management of DKA as per primary team.. - Continue IV/oral PPI twice daily for at least 6 weeks - Diabetic gastroparesis diet instructions were given to the patient and all questions answered. - Patient is educated about the indications, risks, benefits, alternatives to EGD. Patient verbalized understanding and did not want to do endoscopy at this time as her symptoms have significantly improved. - Elective evaluation for anemia as an outpatient. - Upon discharge, patient is to call GI clinic to make follow-up appointment in 4 weeks. Plan of care discussed with patient and primary team. Patient verbalized understanding and agreed with the plan. Vital Signs/I&O Vital Signs Date Time Temp Pulse Resp B/P (MAP) Pulse Ox O2 Delivery O2 Flow Rate FiO2 06/05/19 06:00 98.2 85 16 109/65 (80) 100 Room Air I&O- Last 24 Hours up to 6 AM 06/05/19 05:59 Intake Total 2633.5 ml Output Total 1000 ml Balance 1633.5 ml Laboratory Data CBC/BMP Laboratory Tests 06/04/19 16:18 06/05/19 06:23 Microbiology Microbiology 06/03/19 Gastrointestinal Tract Panel (PCR) - Final, Complete 06/03/19 Respiratory Virus Panel (PCR) (GLENDA) - Final, Complete 06/03/19 Blood Culture - Preliminary, Resulted No Growth after 48 hours. All Specime... 06/03/19 Blood Culture - Preliminary, Resulted No Growth after 48 hours. All Specime... Allergies Coded Allergies: No Known Allergies (Verified , 06/03/19) Home Medications Scheduled Insulin NPH Hum/Reg Insulin Hm (Novolin 70-30 100 Unit/ml Vial) 100 Unit/1 Ml Vial, 1 DOSE SC BID, (Reported) PER SLIDING SCALE Pantoprazole Sodium (Pantoprazole Sodium) 40 Mg Tablet.dr, 40 MG PO DAILY, (Reported) Scheduled PRN Dicyclomine HCl (Dicyclomine HCl) 10 Mg Capsule, 10 MG PO Q8H PRN for IRRITABLE BOWEL SYNDROME, (Reported) Metoclopramide Hcl (Reglan) 5 Mg Tablet, 5 MG PO TID PRN for NAUSEA, (Reported) CÉSAR ZAVALA MD Jun 05, 2019 13:38
[2019-06-05 13:44] LABS: BLOOD UREA NITROGEN 7 MG/DL (7-18); CALCIUM LEVEL 8.5 MG/DL (8.5-10.1); CARBON DIOXIDE LEVEL 24 MEQ/L (21-32); CHLORIDE LEVEL 107 MEQ/L (98-107); CREATININE FOR GFR 1.13 MG/DL (0.55-1.30); GLOMERULAR FILTRATION RATE > 60.0 (>58); GLUCOSE, FASTING 94 MG/DL (70-100); MAGNESIUM LEVEL 1.8 MG/DL (1.8-2.4); POTASSIUM SERUM 3.4 MEQ/L (3.5-5.1); SODIUM LEVEL 135 MEQ/L (136-145)
[2019-06-05] MEDS ORDERED: MAG400TA PO (13:56)
[2019-06-05] MEDS ORDERED: PANT40TA3 PO (15:27)
--- NOTE | 2019-06-05 15:39 | DS.PDOC ---
Discharge Summary General Date of Admission Jun 03, 2019 at 14:37 Date of Discharge 06/05/2019 Discharge Summary PROCEDURES PERFORMED DURING STAY: [None]. ADMITTING DIAGNOSES / DISCHARGE DIAGNOSES: Diabetic ketoacidosis Type 1 DM Intractable Nausea and Vomiting JENNY DVT prophylaxis COMPLICATIONS/CHIEF COMPLAINT: Nausea and vomiting HISTORY OF PRESENT ILLNESS / HOSPITAL COURSE: Patient is a 48-year-old female with a PMHx of IDDM1, (poorly controlled, last hemoglobin A1c 9.9 in May 2019) who presented to the hospital with nausea and vomiting recently admitted the same between 05/30/2019 to 06/01/2019. On discharge patient failed to continue with taking her insulin did not fill prescriptions because of poor weather. Upon arrival, patient was found to be in DKA and was admitted to ICU for further management. Patient was on insulin drip and aggressive IV fluid hydration. Patient's anion gap had closed and bicarbonate had normalized. Patient had electrolyte abnormalities were corrected during hypophosphatemia, hypomagnesemia, and hypokalemia. After patient's anion gap had closed, she was transitioned to long-acting insulin as well as sliding scale. Patient was slowly advanced on her diet from clear liquids to a consistent carbohydrate diet that she was able to tolerate on the morning of discharge. Patient was seen and evaluated by gastroenterology during this hospital course. Patient has declined to receive an EGD at this time and will continue follow-up with them as an outpatient. Patient has had a gastric emptying study in the past that was negative and had EGD in the past w tez Gomez that was normal. On 06/05/2019 patient was reevaluated in the afternoon after she had consumed her lunch and she is requested to go home and noted that her symptoms have resolved completely. Provider her with a note for work and sent out prescriptions to her pharmacy. She's been advised remained compliant with treatment plan and medications. She has been advised to follow-up with her primary care provider, Dr. Miles, and endocrinology within the next 7 days. She's been advised to return to the emergency room. She expresses any problems. DISCHARGE MEDICATIONS: Please see below. ALLERGIES: Please see below. PHYSICAL EXAMINATION ON DISCHARGE: Vitals (See below) General: Lying in bed, no acute distress, comfortable, AAOx3 HEENT: NC, AT CVS: RRR, +S1S2 Lungs: Fair air entry b/l, -w/r/r Abdomen: Soft, ND, NT Extremities: - Edema, - Calf tenderness LABORATORY DATA: Please see below. IMAGING: CT Head 06/03: Negative noncontrast head CT. XR abdomen 06/03: No evidence of bowel obstruction. CXR 06/03: No acute pulmonary disease. US abdomen 06/03: No acute pathology. No evidence of cholecystitis. The gallbladder is unremarkable, with no stones identified. No biliary obstruction. ACTIVITY: [As tolerated]. DISCHARGE PLAN: Follow up with Primary care provider, Dr. Miles, and endocrinology within the next 7 days Advised remained compliant with treatment plan and medications Return to the emergency room if you experience any problems DISPOSITION: Home, Self-Care. DISCHARGE CONDITION: [Stable]. TIME SPENT ON DISCHARGE: 35 minutes Vital Signs/I&Os Vital Signs Date Time Temp Pulse Resp B/P (MAP) Pulse Ox O2 Delivery O2 Flow Rate FiO2 06/05/19 06:00 98.2 85 16 109/65 (80) 100 Room Air I&O- Last 24 Hours up to 6 AM 06/05/19 06:00 Intake Total 1354.5 ml Output Total 1000 ml Balance 354.5 ml Laboratory Data Labs 24H Laboratory Tests 2 06/04/19 15:56: Bedside Glucose (Misc Panel) 141H 06/04/19 16:18: Blood Gas Bicarbonate Standard 17.2, Venous Blood pH 7.358, Venous Blood Partial Pressure CO2 28.1L, Venous Blood Partial Pressure O2 122.1H, Venous Blood Total Carbon Dioxide 16.3L, Venous Blood HCO3 15.4L, Venous Blood Oxygen Saturation 98.5H, Venous Blood Base Excess -8.9L, Anion Gap 8, Glomerular Filtration Rate > 60.0, Calcium Level 8.0L, Phosphorus Level 2.0#L, Magnesium Level 2.3, Albumin 3.0#L, B-Hydroxybutyrate 7.08H 06/04/19 17:52: Bedside Glucose (Misc Panel) 157H 06/04/19 20:17: Bedside Glucose (Misc Panel) 199H 06/05/19 06:09: Bedside Glucose (Misc Panel) 71 06/05/19 06:23: Immature Granulocyte % (Auto) 0.2, Neutrophils (%) (Auto) 57.5, Lymphocytes (%) (Auto) 28.8, Monocytes (%) (Auto) 8.4H, Eosinophils (%) (Auto) 4.6H, Basophils (%) (Auto) 0.5, Neutrophils # (Auto) 3.4, Lymphocytes # (Auto) 1.7, Monocytes # (Auto) 0.5, Eosinophils # (Auto) 0.3, Basophils # (Auto) 0.0, Nucleated Red Blood Cells % (auto) 0.0, Anion Gap 6L, Glomerular Filtration Rate > 60.0, Calcium Level 8.3L, Phosphorus Level 3.4#, Magnesium Level 1.6L, B- Hydroxybutyrate 0.96 06/05/19 07:35: Blood Gas Puncture Site UNKNOWN, Blood Gas Bicarbonate Standard 21.3, Venous Blood pH 7.434H, Venous Blood Partial Pressure CO2 30.3L, Venous Blood Partial Pressure O2 159.4H, Venous Blood Total Carbon Dioxide 20.8L, Venous Blood HCO3 19.8L, Venous Blood Oxygen Saturation 99.0H, Venous Blood Base Excess -3.8L 06/05/19 10:08: Bedside Glucose (Misc Panel) 212H 06/05/19 11:18: Bedside Glucose (Misc Panel) 172H 06/05/19 12:57: Anion Gap 4L, Glomerular Filtration Rate > 60.0, Calcium Level 8.5, Magnesium Level 1.8 CBC/BMP Laboratory Tests 06/04/19 16:18 06/05/19 06:23 06/05/19 12:57 FSBS Laboratory Tests Test 06/04/19 15:56 06/04/19 17:52 06/04/19 20:17 06/05/19 06:09 Range/Units Bedside Glucose (Misc Panel) 141 157 199 71 70-105 MG/DL Test 06/05/19 10:08 06/05/19 11:18 Range/Units Bedside Glucose (Misc Panel) 212 172 70-105 MG/DL Microbiology Microbiology 06/03/19 Gastrointestinal Tract Panel (PCR) - Final, Complete 06/03/19 Respiratory Virus Panel (PCR) (GLENDA) - Final, Complete 06/03/19 Blood Culture - Preliminary, Resulted No Growth after 48 hours. All Specime... 06/03/19 Blood Culture - Preliminary, Resulted No Growth after 48 hours. All Specime... Discharge Medications Scheduled Insulin NPH Hum/Reg Insulin Hm (Novolin 70-30 100 Unit/ml Vial) 100 Unit/1 Ml Vial, 1 DOSE SC BID, (Reported) PER SLIDING SCALE Magnesium Oxide (Magnesium Oxide) 400 Mg Tablet, 400 MG PO DAILY Pantoprazole Sodium (Pantoprazole Sodium) 40 Mg Tablet.dr, 40 MG PO DAILY, (Reported) Scheduled PRN Dicyclomine HCl (Dicyclomine HCl) 10 Mg Capsule, 10 MG PO Q8H PRN for IRRITABLE BOWEL SYNDROME, (Reported) Metoclopramide Hcl (Reglan) 5 Mg Tablet, 5 MG PO TID PRN for NAUSEA, (Reported) Allergies Coded Allergies: No Known Allergies (Verified , 06/03/19) RAZIA YEPEZ MD Jun 05, 2019 15:39
== END 2019-06-05 14:50 | disposition home or self-care (01) | DRG 420 ==
LOC: M ED 10:58 → M ED INP 14:37 → ENRESERV 14:42 → M ICU 15:25 → M MS5PR 06-04 19:55
PROVIDERS: ADMIT Internal Medicine; ATTEND Internal Medicine
DX: E10.11 Type 1 diabetes mellitus with ketoacidosis with coma (principal); N17.9 Acute kidney failure, unspecified; K31.84 Gastroparesis; E83.42 Hypomagnesemia; E83.39 Other disorders of phosphorus metabolism; E10.43 Type 1 diabetes mellitus with diabetic autonomic (poly)neuropathy; E86.0 Dehydration; E10.65 Type 1 diabetes mellitus with hyperglycemia; Z79.4 Long term (current) use of insulin; Z79.899 Other long term (current) drug therapy; Z91.14 Patient's other noncompliance with medication regimen

== ENCOUNTER 2019-06-22 10:33 | Inpatient (IN) | payer OTHER ==
[~2019-06-22] VITALS: Ht 170.2 cm; Wt 70.5 kg
[~2019-06-22 10:33] MED LIST changes: +DICY10CA13 PO
[2019-06-22] MEDS ORDERED: NS 1,000 ML IV ONE ×2 (10:45→11:00)
[2019-06-22] MEDS ORDERED: HEAL1TAB6 PO (11:29)
[2019-06-22] MEDS ORDERED: ONETAB35 PO (11:29)
[2019-06-22 11:45] LABS: VENOUS BASE EXCESS -3.1 (-2.0-2.0); VENOUS HCO3 21.1 MEQ/L (23.0-27.0); VENOUS O2 SATURATION 64.5 % (60.0-80.0); VENOUS PARTIAL PRESSURE O2 35.4 mmHg (30.0-50.0); VENOUS PH 7.399 UNITS (7.330-7.430); VENOUS STANDARD HCO3 21.3 MEQ/L; VENOUS TOTAL CO2 22.2 MEQ/L (24.0-28.0)
[2019-06-22 11:55] LABS: BASO % 0.3 % (0.0-1.0); HEMATOCRIT 32.6 % (36.0-47.0); HEMOGLOBIN 11.1 g/dl (12.0-15.5); LYMPH # 0.9 10^3/uL (1.5-5.0); LYMPH % 9.1 % (24.0-44.0); MEAN CORPUSCULAR HEMOGLOBIN 29.1 pg (27.0-33.0); MEAN CORPUSCULAR VOLUME 85.3 fl (80.0-96.0); MONO # 0.5 10^3/uL (0.0-0.8); MONO % 4.5 % (0.0-5.0); NEUTROPHILS # 8.6 10^3/uL (1.5-8.5); NEUTROPHILS % 85.7 % (36.0-66.0); PLATELET COUNT, AUTOMATED 394 10^3/uL (150-450); RED BLOOD COUNT 3.82 10^6/uL (4.00-5.40); WHITE BLOOD COUNT 10.1 10^3/uL (4.0-10.0)
[2019-06-22 12:11] LABS: HEMOGLOBIN A1c 9.8 %
--- NOTE | 2019-06-22 12:25 | ECGEPIP ---
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
[2019-06-22 12:30] LABS: ACETONE/KETONE > 46.00 MG/DL (<2.81); ALBUMIN 4.4 GM/DL (3.2-5.2); ALT/SGPT 35 U/L (12-78); BILIRUBIN,DIRECT 0.2 MG/DL (0.0-0.2); BILIRUBIN,TOTAL 0.7 MG/DL (0.2-1.0); LIPASE 49 U/L (73-393); MAGNESIUM LEVEL 2.6 MG/DL (1.8-2.4); TOTAL PROTEIN 7.9 GM/DL (6.4-8.2)
[2019-06-22] MEDS ORDERED: METOCLOPRAMIDE INJ 10MG/2ML VIAL (J2765) IV ONE (12:30)
[2019-06-22] MEDS ORDERED: HumuLIN R (REGULAR) INSULIN (NovoLIN R) **100U/ML** PER UNIT IV ONE (13:00)
[2019-06-22 13:11] LABS: BLOOD UREA NITROGEN 44 MG/DL (7-18); CALCIUM LEVEL 9.6 MG/DL (8.5-10.1); CARBON DIOXIDE LEVEL 21 MEQ/L (21-32); CHLORIDE LEVEL 100 MEQ/L (98-107); CREATININE FOR GFR 1.84 MG/DL (0.55-1.30); GLOMERULAR FILTRATION RATE 38.1 (>58); GLUCOSE, FASTING 350 MG/DL (70-100); POTASSIUM SERUM 3.9 MEQ/L (3.5-5.1); SODIUM LEVEL 136 MEQ/L (136-145)
[2019-06-22 13:12] LABS: HCG, SERUM QUALITATIVE NEGATIVE (NEGATIVE)
[2019-06-22] MEDS ORDERED: DEXTROSE 50% 50 ML SYRINGE IV PRN (14:15)
[2019-06-22] MEDS ORDERED: GLUCAGON FOR INJ 1 MG VIAL (J1610) SC PRN (14:15)
[2019-06-22] MEDS ORDERED: GLUCOSE 4 GM CHEW TABLET PO PRN (14:15)
[2019-06-22] MEDS ORDERED: PANTOPRAZOLE 40MG INJ (PROTONIX) (C9113) IV ONE (15:00)
[2019-06-22] MEDS ORDERED: ACETAMINOPHEN *IV* 650 MG in IV 1 EA IV ONE (15:00)
[2019-06-22] MEDS ORDERED: MORPHINE 4 MG/ML 1ML VIAL/SYRINGE (J2270) IV ONE (15:00)
[2019-06-22] MEDS ORDERED: NS 2,000 ML IV ONE (15:00)
--- NOTE | 2019-06-22 15:01 | REP ---
HISTORY: Abdominal pain with nausea and vomiting. The technique utilized in obtaining the radiograph has magnified the cardiac silhouette and accentuated the interstitial markings. The superior mediastinal structures are midline. The cardiac silhouette is unremarkable in size, shape, and position. The diaphragmatic surfaces of the lungs are regular, and the costophrenic angles are clear. The pulmonary aponte are clear. The imaged osseous structures are intact. IMPRESSION: There is no acute cardiopulmonary disease. Electronically Signed by Bird Betts DO 06/22/2019 03:22 P
[2019-06-22 15:07] VITALS: BP 146/98
[2019-06-22] MEDS: PROMETHAZINE INJ 25 MG/ML VIAL (J2550) IV SCH ×2 (15:08→21:11)
[2019-06-22] MEDS: NS 1,000 ML IV SCH ×2 (15:08→21:26)
--- NOTE | 2019-06-22 16:07 | HPE ---
DATE OF ADMISSION: 06/22/2019 CHIEF COMPLAINT: Nausea and vomiting since Thursday. HISTORY OF PRESENT ILLNESS: 48-year-old -Turkish female with type 1 diabetes, managed by [facility], Dr. Lopez, on 70/30 insulin, has been compliant per the patient until Thursday night when she developed intractable nausea and vomiting about three times, nonbilious, nonprojectile vomiting with food emesis. No fever, chills. Complained of left lower quadrant abdominal pain rated 3/10 when she vomits without any sick contacts. Patient works at [employer] on [address] and was eating some moroccan fries then. She has not had any decent meals since this occurred last Thursday. The patient also complained of diarrhea all day long on Thursday, watery, nonbloody, nonmucousy diarrhea about 10 times Thursday which subsided without any intervention. She did not take any Lomotil and had taken no medications for abdominal pain or vomiting. Patient denies any sick contacts. No shortness of breath, chest pain, headaches. Has not had any recent travel as well. The patient had similar episodes in the past when she presented with diabetic ketoacidosis (DKA). Her bicarbonate, however, is normal today. Leukocyte elevated but with no acute kidney injury. Creatinine 1.8. Hospitalist was called to admit for acute kidney injury due to intractable nausea and vomiting, most likely secondary to gastroparesis. Patient was previously evaluated by Dr. Miles. She was instructed to take PPI twice a day and to followup in the GI clinic in four weeks time. Encouraged to take Reglan and gastroparesis diet. Patient says that Reglan does nothing for her and she has not been taking that medication and refused Reglan in the emergency room. In 2009, patient was found to have esophagitis on EGD. She currently denies any weight loss, any dysphagia, odynophagia. PAST MEDICAL HISTORY: Type 1 diabetes. DKA. Acute kidney injury. PAST SURGICAL HISTORY: None. ALLERGIES: No known drug allergies. 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 Denies any recreational drug use. Smokes 4 cigarettes a day. None for the past 6 months. FAMILY HISTORY: Mother alive and well age 69 with diabetes. Father 67. No medical problems. Three brothers, one sister alive and well. REVIEW OF SYSTEMS: Per HPI. 12-point system otherwise negative. PHYSICAL EXAMINATION: Temperature 98.8, pulse 74, respiratory rate 17, blood pressure 138/83, 98% on room air. GENERAL: In no respiratory distress. Awake, alert, oriented. Answering questions appropriately. No pallor, no icterus or jaundice. Pupils round, reactive. Extraocular muscles are intact. Dry mucous membranes, with chapped lips. No oral ulcers. No jugular venous distention (JVD). No thyromegaly. No cervical lymphadenopathy. LUNGS: Clear to auscultation. No wheezing or rales. HEART: S1, S2, sinus rhythm. ABDOMEN: Soft, tender left lower quadrant. No rebound, no guarding. Positive bowel sounds. No hepatosplenomegaly. No abdominal bruits. EXTREMITIES: No cyanosis, clubbing or pitting edema. LABORATORY DATA: White count 10, hemoglobin 11, hematocrit 32, platelet count 394. Sodium 136, potassium 3.9, chloride 100, bicarbonate 21, BUN 44, creatinine 1.84, glucose of 350. A1c 9.8, plasma glucose 235. Calcium 9.6, magnesium 2.6. Total bilirubin 0.7. Direct bilirubin 0.2, AST 29, ALT 35, alkaline phosphatase 83, total protein 7.9, albumin 4.4, lipase 49. HCG is negative. Blood culture pending. Urinalysis pending. Beta hydroxybutyrate greater than 46. On 06/22/2019 VBG 7.39, CO2 35, oxygen 35, bicarbonate 21. Chest x-ray: No acute cardiopulmonary disease. ASSESSMENT AND PLAN: 48-year-old with history of type 1 diabetes, DKA, gastroparesis, esophagitis, dehydration, presents to the emergency room with intractable nausea and vomiting since Thursday, found to have acute kidney injury. IMPRESSION: 1. Acute kidney injury due to volume loss from intractable nausea and vomiting, most likely due to gastroparesis or esophagitis. Patient has been encouraged to keep to a gastroparesis diet per GI recommendations during the previous admission. She is on IV fluids, 2 liters boluses and 150 an hour for symptomatic relief, antiemetics with Phenergan. Patient refused Reglan and Zofran. 2. Intractable nausea and vomiting. Most likely secondary to gastroparesis in light of her history of type 1 diabetes. Patient has refused Reglan. Had been seen by GI during past admission and instructed to keep to a gastroparetic diet. Small frequent meals. She is to continue her PPI for 6 weeks and to followup in the GI clinic for possible EGD. Patient has no alarming symptoms. No coffee ground emesis, weight loss, dysphagia or odynophagia to necessitate immediate GI consultation during this admission. 3. Uncontrolled type 1 diabetes secondary to possible noncompliance. Patient will be kept on every 4 hourly fingersticks. She will be kept on sliding scale for now. May resume long acting or intermediate acting insulin pending oral intake. Continue with IV fluids for hydration for renal failure. 4. History of esophagitis in 2009. Patient was found to have a ulcerative esophagitis with exudate. Negative for fungal organism by Dr. Vernon in June 2009. Patient is kept on PPI for 2 weeks. Will change for h. Pylori antibodies and outpatient GI followup. 5. DVT prophylaxis with compression stockings.
[2019-06-22] MEDS: HumaLOG INSULIN (NovoLOG) PER UNIT SC SCH ×2 (17:26→20:37)
[2019-06-22] MEDS ORDERED: ONDANSETRON 4MG/2ML VIAL (J2405) IV SCH (18:00)
[2019-06-22] MEDS ORDERED: METOCLOPRAMIDE INJ 10MG/2ML VIAL (J2765) IV SCH (18:00)
[2019-06-22 20:00] LABS: ACETONE/KETONE 6.58 MG/DL (<2.81); CALCIUM LEVEL 8.5 MG/DL (8.5-10.1); CREATININE FOR GFR 1.29 MG/DL (0.55-1.30); GLOMERULAR FILTRATION RATE 57.4 (>58); POTASSIUM SERUM 3.6 MEQ/L (3.5-5.1)
[2019-06-22] MEDS: LEVEMIR (INSULIN DETEMIR) 1 UNITS/0.01ML SC SCH (20:38)
[2019-06-22 22:00] VITALS: BP 137/84
[2019-06-23] MEDS: PROMETHAZINE INJ 25 MG/ML VIAL (J2550) IV SCH ×4 (02:24→20:10)
[2019-06-23] MEDS: NS 1,000 ML IV SCH ×3 (04:09→17:03)
[2019-06-23 06:00] VITALS: BP 131/80
[2019-06-23 06:00] LABS: HEMATOCRIT 25.2 % (36.0-47.0); MEAN CORPUSCULAR HEMOGLOBIN 28.4 pg (27.0-33.0); MEAN CORPUSCULAR HGB CONC 32.9 g/dl (32.0-36.5); MEAN CORPUSCULAR VOLUME 86.3 fl (80.0-96.0); RED BLOOD COUNT 2.92 10^6/uL (4.00-5.40); WHITE BLOOD COUNT 6.8 10^3/uL (4.0-10.0)
[2019-06-23 06:10] LABS: HEMOGLOBIN 8.3 g/dl (12.0-15.5); PLATELET COUNT, AUTOMATED 291 10^3/uL (150-450)
[2019-06-23 06:18] LABS: BLOOD UREA NITROGEN 24 MG/DL (7-18); CALCIUM LEVEL 7.9 MG/DL (8.5-10.1); CARBON DIOXIDE LEVEL 21 MEQ/L (21-32); CHLORIDE LEVEL 112 MEQ/L (98-107); CREATININE FOR GFR 1.11 MG/DL (0.55-1.30); GLOMERULAR FILTRATION RATE > 60.0 (>58); GLUCOSE, FASTING 198 MG/DL (70-100); POTASSIUM SERUM 3.6 MEQ/L (3.5-5.1); SODIUM LEVEL 143 MEQ/L (136-145)
[2019-06-23] MEDS: HumaLOG INSULIN (NovoLOG) PER UNIT SC SCH ×5 (07:30→20:22)
[2019-06-23] MEDS: METOCLOPRAMIDE INJ 10MG/2ML VIAL (J2765) IV SCH ×4 (07:30→20:12)
[2019-06-23] MEDS ORDERED: PROMETHAZINE INJ 25 MG/ML VIAL (J2550) IV ONE (07:45)
[2019-06-23] MEDS: PANTOPRAZOLE 40MG INJ (PROTONIX) (C9113) IV SCH ×2 (08:14→20:12)
[2019-06-23] MEDS ORDERED: REGL5TAB2 PO (13:15)
[2019-06-23] MEDS ORDERED: PROC25SU24 PR (13:15)
[2019-06-23] MEDS ORDERED: PRIL20TA2 PO (13:15)
[2019-06-23 14:00] VITALS: BP 131/79
--- NOTE | 2019-06-23 14:12 | IPN ---
DATE OF SERVICE: 06/23/2019 Patient is afebrile. Says that her nausea is still persistent, that Phenergan is making it worse, Reglan does not work and Zofran does not work. With IV fluid hydration the patient's creatinine is improved from 1.8 on admission to 1.11 today. She is going to try an oral diet this morning. She was able to keep her liquids down yesterday. The patient is refusing workup for her intractable nausea and vomiting with presumed diagnosis of gastroparesis and possible esophagitis due to complaints of pain. The patient otherwise denies any new weight loss, dysphagia, odynophagia. Temperature 98.5, pulse 81, respiratory rate 16, blood pressure 131/80, 100% on room air. Fingersticks have been 82, 84, 128, 289 and 161. She has been placed on Levemir insulin at bedtime. Generally awake, alert and oriented to person, place and time. No respiratory distress. No cyanosis, no clubbing. Patient has clear lungs. No wheezing or rales. Heart S1, S2, sinus rhythm. Abdomen is soft, slightly tender in the left lower quadrant, no rebound or guarding. Positive bowel sounds. No hepatosplenomegaly or abdominal bruits. Extremities no pitting edema. Laboratory data has been reviewed. ASSESSMENT/PLAN: This is a 48-year-old female with history of gastroparesis, esophagitis, noncompliant with her gastroparesis diet, uses 70/30 insulin at home, managed by Dr. Lopez, who presents with intractable nausea and vomiting, which started on Thursday after eating some Somali fries from [email or web address] where she works. The patient has had no diarrhea. She had no signs of diabetic ketoacidosis on admission with normal bicarbonate, who was admitted for possible gastroparesis, rule out gastroenteritis. Patient refused CT abdomen and pelvis as well as a gastric emptying scan. Refused further workup. Refused Phenergan, Zofran and Reglan. IMPRESSION: 1. Acute kidney injury, resolved. Secondary to nausea and vomiting, which was intractable at home. At this time, patient is open to advancing her diet to consistent carbs. Since she has been tolerating liquids, will discontinue IV fluids once she has resumed a full diet. 2. Gastroparesis. She has been strongly encouraged to continue with a gastroparesis diet with small frequent meals, mostly liquids and high protein diet. Patient is reluctant and noncompliant. 3. Type 1 diabetic. Patient is to continue her home regimen at home. She was only on a sliding scale. Her A1c is uncontrolled. She will need outpatient followup. A1c is 9.8. 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 4. Medical noncompliance. Patient has been counseled multiple times in the past about being noncompliant with Reglan and PPI. 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 Encourage oral intake and gastroparesis diet with small frequent meals and high protein. MTDD
[2019-06-23] MEDS ORDERED: oxyCODONE 5MG TAB PO ONE (15:00)
[2019-06-23] MEDS ORDERED: ACETAMINOPHEN *IV* 1,000 MG in IV 1 EA IV ONE (16:00)
[2019-06-23] MEDS: LEVEMIR (INSULIN DETEMIR) 1 UNITS/0.01ML SC SCH (19:34)
[2019-06-24] MEDS: NS 1,000 ML IV SCH (00:10)
[2019-06-24] MEDS: PROMETHAZINE INJ 25 MG/ML VIAL (J2550) IV SCH (02:54)
[2019-06-24 06:00] VITALS: BP 141/90
[2019-06-24 06:07] LABS: HEMATOCRIT 25.3 % (36.0-47.0); HEMOGLOBIN 8.2 g/dl (12.0-15.5); MEAN CORPUSCULAR HEMOGLOBIN 28.2 pg (27.0-33.0); MEAN CORPUSCULAR HGB CONC 32.4 g/dl (32.0-36.5); MEAN CORPUSCULAR VOLUME 86.9 fl (80.0-96.0); PLATELET COUNT, AUTOMATED 261 10^3/uL (150-450); RED BLOOD COUNT 2.91 10^6/uL (4.00-5.40); WHITE BLOOD COUNT 6.2 10^3/uL (4.0-10.0)
[2019-06-24 06:30] LABS: BLOOD UREA NITROGEN 13 MG/DL (7-18); CALCIUM LEVEL 8.1 MG/DL (8.5-10.1); CARBON DIOXIDE LEVEL 18 MEQ/L (21-32); CHLORIDE LEVEL 110 MEQ/L (98-107); CREATININE FOR GFR 0.97 MG/DL (0.55-1.30); GLOMERULAR FILTRATION RATE > 60.0 (>58); GLUCOSE, FASTING 233 MG/DL (70-100); POTASSIUM SERUM 3.8 MEQ/L (3.5-5.1); SODIUM LEVEL 138 MEQ/L (136-145)
[2019-06-24] MEDS ORDERED: OXYC-517 PO (08:51)
[2019-06-24] MEDS ORDERED: oxyCODONE 5MG TAB PO ONE (09:00)
[2019-06-24] MEDS ORDERED: SODIUM BICARBONATE 325 MG TAB PO SCH (09:00)
[2019-06-24] MEDS ORDERED: PROMETHAZINE 25 MG TAB PO PRN (09:00)
[2019-06-24] MEDS ORDERED: MORPHINE 4 MG/ML 1ML VIAL/SYRINGE (J2270) IV ONE (10:00)
[2019-06-24] MEDS: PANTOPRAZOLE 40MG TAB (PROTONIX) PO SCH ×2 (10:04→21:11)
[2019-06-24] MEDS: HumaLOG INSULIN (NovoLOG) PER UNIT SC SCH ×5 (10:04→21:11)
[2019-06-24] MEDS ORDERED: SODIUM BICARBONATE 100 MEQ in D5W 1,000 ML IV SCH (11:00)
[2019-06-24] MEDS: METOCLOPRAMIDE 10 MG TAB PO SCH ×3 (12:22→21:11)
--- NOTE | 2019-06-24 13:07 | IPNPDOC ---
Date Seen The patient was seen on 06/24/19. Progress Note SUBJECTIVE: Tearful this morning." I just have so much pain. I keeps on coming back. my mouth is so dry, and I keep on rinsing it." Pt denies any vomiting,and is able to tolerate oral liquids. c/o RLQ and epigastric pain, but still refusing imaging studies such as gastric emptying scan, "that's not going to show anything.", and CT abd/pelvis, "I can't take drink that stuff." Despite GI Dr. Miles recommendation to take 6wks of PPI during 06/03/19 consult,pt says, "I didn't even pick it up. That won't work." No fever, chills, vomiting, or diarrhea. 10/10 sharp pain in RLQ and epigastric area, on and off, unable to sleep better with lays on her right side, and worse with ambulation. left hand peripheral iv infiltrated OBJECTIVE: PHYSICAL EXAMINATION: VITALS: PLS SEE BELOW Generally: anicteric. no jaundice. tearful. poor eye contact. appears withdrawn awake, alert and oriented to person, place and time. No respiratory distress. No cyanosis, no clubbing. Patient has clear lungs. No wheezing or rales. Heart S1, S2, sinus rhythm. Abdomen is soft, slightly tender in the epigastric and right lower quadrant, no rebound or guarding. Positive bowel sounds. No hepatosplenomegaly or abdominal bruits. Extremities no pitting edema. left hand swelling at iv site. no signs of thrombophlebitis without erythema . Laboratory data has been reviewed. refused imaging studies ASSESSMENT/PLAN: This is a 48-year-old female with history of gastroparesis, esophagitis, noncompliant with her gastroparesis diet, uses 70/30 insulin at home, managed by Dr. Lopez, who presents with intractable nausea and vomiting, which started on Thursday after eating some [employer] fries from [employer] where she works. The patient has had no diarrhea. She had no signs of diabetic ketoacidosis on admission with normal bicarbonate, who was admitted for possible gastroparesis, rule out gastroenteritis. Patient refused CT abdomen and pelvis as well as a gastric emptying scan. Refused further workup. Refused Phenergan, Zofran and Reglan. IMPRESSION: 1. Acute kidney injury, resolved. Secondary to nausea and vomiting, which was intractable at home. At this time, patient is open to advancing her diet to consistent carbs. Since she has been tolerating liquids, will discontinue IV fluids once she has resumed a full diet. 2. Gastroparesis. She has been strongly encouraged to continue with a gastroparesis diet with small frequent meals, mostly liquids and high protein diet. Patient is reluctant and noncompliant. after extensive discussion about allowing medical treatment to be given, pt says, "okay. I'll try, but give me something for my pain." PPI and reglan. 3. Type 1 diabetic. Patient is to continue her home regimen at home. She was only on a sliding scale. Her A1c is uncontrolled. She will need outpatient followup. A1c is 9.8. 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 on o.2u/kg / day levemir insulin to be held if glucose<180mg/dl. 4. Medical noncompliance. Patient has been counseled multiple times in the past about being noncompliant with Reglan and PPI. 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 Metabolic acidosis. serial mp to rule out early DKA. on long-acting insulin with decreased acetone levels. fluid hydration. monitor for infection. 6. Gram positive blood cx: afebrile with no white count. Per bacteriology this morning, "not staph aureus." if pt develops [id number] or increased wbc, start iv vanco. repeat blood cx pending. 7. RLQ abd pain/ epigastric pain: refused CT abd pelvis, NM-gastric emptying scan, UGI series. empiric PPI bid, reglan for gastroparesis. afebrile, but will cover empirically if tmax 100.4 or higher. pt is noncompliant and refuses all imaging studies. PRN pain meds. Disposition: dc in am if metabolic acidosis resolves, negative blood cx, and pt tolerating oral diet. VS, I&O, 24H, Fishbone Vital Signs/I&O Vital Signs Date Time Temp Pulse Resp B/P (MAP) Pulse Ox O2 Delivery O2 Flow Rate FiO2 06/24/19 10:06 16 06/24/19 06:00 96.9 80 141/90 (107) 100 Room Air I&O- Last 24 Hours up to 6 AM 06/24/19 06:01 Intake Total 4110 ml Output Total 675 ml Balance 3435 ml Laboratory Data 24H LABS Laboratory Tests 2 06/23/19 14:55: Erythrocyte Sedimentation Rate 35H, C-Reactive Protein, Quantitative 2.21H 06/23/19 16:39: Bedside Glucose (Misc Panel) 37*L 06/23/19 16:43: Bedside Glucose (Misc Panel) 34*L 06/23/19 16:59: Bedside Glucose Confirm (Misc) 50 06/23/19 17:18: Bedside Glucose (Misc Panel) 53L 06/23/19 18:05: Bedside Glucose (Misc Panel) 121H 06/23/19 20:07: Bedside Glucose (Misc Panel) 252H 06/24/19 05:49: Nucleated Red Blood Cells % (auto) 0.0, Anion Gap 10, Glomerular Filtration Rate > 60.0, Calcium Level 8.1L 06/24/19 11:30: Bedside Glucose (Misc Panel) 219H CBC/BMP Laboratory Tests 06/24/19 05:49 Microbiology Microbiology 06/23/19 Blood Culture, Received Pending 06/23/19 Blood Culture, Received Pending 06/22/19 Blood Culture - Preliminary, Resulted No Growth after 48 hours. All Specime... 06/22/19 Blood Culture - Preliminary, Resulted PRECIOUS ROSE MD Jun 24, 2019 13:08
[2019-06-24 14:00] VITALS: BP 138/81
[2019-06-24] MEDS: LEVEMIR (INSULIN DETEMIR) 1 UNITS/0.01ML SC SCH (20:49)
[2019-06-24 22:00] VITALS: BP 140/90
[2019-06-25] MEDS: oxyCODONE 5MG TAB PO PRN ×2 (02:07→15:05)
[2019-06-25] MEDS ORDERED: NS 1,000 ML IV ONE (06:15)
[2019-06-25 06:37] LABS: IONIZED CALCIUM 4.6 MG/DL (4.5-5.3)
[2019-06-25 06:53] LABS: HEMATOCRIT 27.4 % (36.0-47.0); HEMOGLOBIN 9.2 g/dl (12.0-15.5); MEAN CORPUSCULAR HEMOGLOBIN 28.8 pg (27.0-33.0); MEAN CORPUSCULAR HGB CONC 33.6 g/dl (32.0-36.5); MEAN CORPUSCULAR VOLUME 85.9 fl (80.0-96.0); PLATELET COUNT, AUTOMATED 252 10^3/uL (150-450); RED BLOOD COUNT 3.19 10^6/uL (4.00-5.40); WHITE BLOOD COUNT 6.8 10^3/uL (4.0-10.0)
[2019-06-25 07:10] LABS: ACETONE/KETONE > 46.00 MG/DL (<2.81); ALBUMIN 3.3 GM/DL (3.2-5.2); ALT/SGPT 23 U/L (12-78); BILIRUBIN,DIRECT 0.3 MG/DL (0.0-0.2); BILIRUBIN,TOTAL 0.8 MG/DL (0.2-1.0); BLOOD UREA NITROGEN 14 MG/DL (7-18); C REACTIVE PROTEIN QUANTITATIV 2.55 MG/DL (0.00-0.30); CALCIUM LEVEL 8.6 MG/DL (8.5-10.1); CARBON DIOXIDE LEVEL 18 MEQ/L (21-32); CHLORIDE LEVEL 103 MEQ/L (98-107); CREATININE FOR GFR 1.09 MG/DL (0.55-1.30); GLOMERULAR FILTRATION RATE > 60.0 (>58); GLUCOSE, FASTING 310 MG/DL (70-100); MAGNESIUM LEVEL 1.5 MG/DL (1.8-2.4); POTASSIUM SERUM 3.8 MEQ/L (3.5-5.1); SODIUM LEVEL 136 MEQ/L (136-145)
[2019-06-25] MEDS ORDERED: PROMETHAZINE INJ 25 MG/ML VIAL (J2550) IV PRN (07:45)
[2019-06-25] MEDS: METOCLOPRAMIDE INJ 10MG/2ML VIAL (J2765) IV SCH ×4 (07:57→23:46)
[2019-06-25 08:01] LABS: ERYTHROCYTE SEDIMENTATION RATE 31 mm/hr (0-20)
[2019-06-25] MEDS: PANTOPRAZOLE 40MG INJ (PROTONIX) (C9113) IV SCH ×2 (09:07→21:53)
[2019-06-25] MEDS: MAG SULF 1GM/100ML (MAG RUN) 1 GM in IV 1 EA IV SCH ×2 (09:08→10:19)
[2019-06-25] MEDS: HumaLOG INSULIN (NovoLOG) PER UNIT SC SCH ×4 (09:08→21:00)
--- NOTE | 2019-06-25 09:26 | REP ---
Clinical: Generalized abdominal pain. Technique: Axial noncontrast images from the lung bases to the pubic symphysis with coronal and sagittal re-formations. Comparison: 06/29/2018. Findings: Lung bases are clear. Visualized heart and pericardium normal. The liver demonstrates a very subtle low density areas adjacent to the ligamentum teres within the inferior right lobe which are nonspecific by noncontrast evaluation. Spleen, pancreas, gallbladder, bilateral adrenal glands and kidneys are relatively normal for noncontrast evaluation. There is a subtle diffuse infiltration to the mesentery along with small amount of ascites in the pelvis and mild mucosal thickening to small bowel. Findings are nonspecific and differential diagnosis may include enterocolitis. No bowel obstruction is appreciated. Normal terminal ileum, cecum and appendix are identified in the right lower quadrant. No free air. Pelvis demonstrates normal bladder and uterus/adnexa. Small amount of ascites in the pelvis noted. No retroperitoneal adenopathy. Abdominal aorta without aneurysm. Musculoskeletal structures are intact. Impression: 1. Mild subtle diffuse haziness to the mesentery along with small amount of ascites extending into the pelvis and suggestions for mild mucosal thickening to small bowel. Findings are nonspecific and differential diagnosis includes but is not limited to enterocolitis. A mild pancreatitis may be within differential diagnosis as well and correlation with laboratory values is recommended. 2. Subtle low density areas within the liver as described above are nonspecific. Consider follow-up ultrasound evaluation of the liver if necessary. Electronically Signed by Zhang Benitez MD 06/25/2019 09:17 A
[2019-06-25] MEDS ORDERED: SODIUM BICARBONATE 100 MEQ in D5W 1,000 ML IV SCH (10:00)
[2019-06-25 13:59] LABS: IONIZED CALCIUM 4.6 MG/DL (4.5-5.3)
[2019-06-25 14:00] VITALS: BP 158/95
--- NOTE | 2019-06-25 14:12 | IPN ---
DATE: 06/25/2019 Patient continues to complain of left lower quadrant pain. UA is negative. She had no fever or chills, persistent nausea without vomiting, rated the pain was 7/10 on a pain scale, but better with morphine and Percocet. No other issues per nursing. Patient is only tolerating liquids at this time and still have difficulty. No dysphagia or odynophagia. Temperature 97.6, pulse 87, respiratory rate 60, blood pressure 140/90, 100% on room air. Generally, patient is awake, alert and oriented to person, place and time. Appears withdrawn and not maintaining eye contact. Tearful at the bedside. No jugular venous distention (JVD), no thyromegaly. Dry mucous membranes with chapped lips. Lungs are clear to auscultation. No wheezing or rales. Heart S1, S2 sinus rhythm. No murmurs, rubs or gallops. Abdomen is soft, tender left lower quadrant, no rebound or guarding. Positive bowel sounds. Extremities no clubbing, cyanosis, or edema. No CVA tenderness. LABORATORY DATA: CBC and metabolic panel have been reviewed, notable for bicarb of 18. Microbiology reviewed. ASSESSMENT/PLAN: This is a 48-year-old with type 1 diabetes with persistent abdominal pain, possible mild DKA with elevated beta hydroxybutyrate and slight metabolic acidosis. The patient is currently tolerating Levemir insulin. Will continue with D5 fluids. Profound hypoglycemia. CT abdomen and pelvis to rule out colitis or infectious etiologies since the patient also complained of diarrhea prior to admission. She currently has had no loose bowel movements. She is maintained on a consistent carbohydrate diet as tolerated, but currently only taking full liquids. Contaminated blood cultures, Staphylococcus epidermidis. The patient has had no fever or white count. Repeat blood cultures have been negative with no intervention despite slight elevation in sed rate and CRP. We are awaiting procalcitonin. No emergent need for broad spectrum coverage as the patient does not appear septic at this time. Chest x-ray is negative. Urine is negative. Awaiting CT abdomen and pelvis. Type 1 diabetes. Currently on Levemir insulin 0.2 unit per kilo per day. No episode of hypoglycemia. She is maintained on D5 at this time. Metabolic acidosis. May be due to mild DKA versus starvation ketoacidosis due to no oral intake at this time due to persistent abdominal pain. She is currently given Reglan for possible gastroparesis, Protonix for possible reflux. IBD panel, H. pylori have been sent. H. pylori is negative. MTDD
[2019-06-25 14:25] LABS: BLOOD UREA NITROGEN 14 MG/DL (7-18); CALCIUM LEVEL 7.7 MG/DL (8.5-10.1); CARBON DIOXIDE LEVEL 21 MEQ/L (21-32); CHLORIDE LEVEL 108 MEQ/L (98-107); CREATININE FOR GFR 1.19 MG/DL (0.55-1.30); GLOMERULAR FILTRATION RATE > 60.0 (>58); GLUCOSE, FASTING 181 MG/DL (70-100); POTASSIUM SERUM 3.5 MEQ/L (3.5-5.1); SODIUM LEVEL 138 MEQ/L (136-145)
[2019-06-25] MEDS: SODIUM BICARBONATE 325 MG TAB PO SCH ×2 (16:07→21:53)
[2019-06-25] MEDS: KCL 10MEQ IN D5/0.45NS 1000ML 1,000 ML IV SCH (16:08)
[2019-06-25 18:00] VITALS: BP 143/82
[2019-06-25] MEDS: LEVEMIR (INSULIN DETEMIR) 1 UNITS/0.01ML SC SCH (21:00)
[2019-06-25 22:00] VITALS: BP 140/90
[2019-06-25] MEDS: MORPHINE 4 MG/ML 1ML VIAL/SYRINGE (J2270) IV PRN (23:46)
[2019-06-26 02:00] VITALS: BP 109/77
[2019-06-26] MEDS: KCL 10MEQ IN D5/0.45NS 1000ML 1,000 ML IV SCH (05:17)
[2019-06-26] MEDS: MORPHINE 4 MG/ML 1ML VIAL/SYRINGE (J2270) IV PRN (05:25)
[2019-06-26] MEDS: METOCLOPRAMIDE INJ 10MG/2ML VIAL (J2765) IV SCH (05:47)
[2019-06-26 06:00] VITALS: BP 125/76
[2019-06-26 07:17] LABS: HEMATOCRIT 25.5 % (36.0-47.0); HEMOGLOBIN 8.5 g/dl (12.0-15.5); MEAN CORPUSCULAR HEMOGLOBIN 28.6 pg (27.0-33.0); MEAN CORPUSCULAR HGB CONC 33.3 g/dl (32.0-36.5); MEAN CORPUSCULAR VOLUME 85.9 fl (80.0-96.0); PLATELET COUNT, AUTOMATED 234 10^3/uL (150-450); RED BLOOD COUNT 2.97 10^6/uL (4.00-5.40); WHITE BLOOD COUNT 8.2 10^3/uL (4.0-10.0)
[2019-06-26 07:28] LABS: BLOOD UREA NITROGEN 11 MG/DL (7-18); C REACTIVE PROTEIN QUANTITATIV 1.76 MG/DL (0.00-0.30); CALCIUM LEVEL 7.9 MG/DL (8.5-10.1); CARBON DIOXIDE LEVEL 16 MEQ/L (21-32); CHLORIDE LEVEL 104 MEQ/L (98-107); GLOMERULAR FILTRATION RATE > 60.0 (>58); GLUCOSE, FASTING 373 MG/DL (70-100); MAGNESIUM LEVEL 1.4 MG/DL (1.8-2.4); POTASSIUM SERUM 3.6 MEQ/L (3.5-5.1); SODIUM LEVEL 136 MEQ/L (136-145)
[2019-06-26] MEDS ORDERED: MAG SULF 1GM/100ML (MAG RUN) 1 GM in IV 1 EA IV ONE (08:00)
[2019-06-26] MEDS ORDERED: LEVEMIR (INSULIN DETEMIR) 1 UNITS/0.01ML SC ONE (08:00)
[2019-06-26 08:01] LABS: ERYTHROCYTE SEDIMENTATION RATE 27 mm/hr (0-20)
[2019-06-26] MEDS: METOCLOPRAMIDE 10 MG TAB PO SCH ×4 (08:27→21:03)
[2019-06-26] MEDS: PANTOPRAZOLE 40MG TAB (PROTONIX) PO SCH (08:27)
[2019-06-26] MEDS: SODIUM BICARBONATE 325 MG TAB PO SCH ×4 (08:27→21:03)
[2019-06-26] MEDS: HumaLOG INSULIN (NovoLOG) PER UNIT SC SCH ×4 (08:40→21:04)
[2019-06-26] MEDS ORDERED: SODIUM BICARBONATE 150 MEQ in STERILE WATER LITER BAG 1,000 ML IV SCH ×2 (09:00→10:00)
--- NOTE | 2019-06-26 09:30 | IPN ---
DATE OF SERVICE: 06/26/2019 Patient is tolerating liquid diet. No vomiting. Abdominal pain is improved. Afebrile overnight. No diarrhea. Abdominal pain is described in the left lower quadrant without vomiting or diarrhea. Patient was compliant with taking oral Protonix as well as Reglan. No fever or chills overnight. Pain is rated at 3/10 currently. Patient had an episode of glucose of 77 yesterday. Currently, still on D5. Being treated for mild diabetic ketoacidosis. Temperature 97.7, pulse 79, respiratory rate 18, blood pressure 125/76, 99% on room air. Generally, patient is awake, alert, and oriented to person, place, and time. Dry mucous membranes. No jugular venous distention (JVD), thyromegaly. Lungs are clear to auscultation. No wheezing or rales. Heart S1, S2, sinus rhythm. Abdomen is soft, tender in left lower quadrant, no rebound, guarding. Positive bowel sounds. No hepatosplenomegaly. Extremities no cyanosis, clubbing, or pitting edema. No costovertebral angle (CVA) tenderness. LABORATORY DATA: Microbiology/imaging studies reviewed. ASSESSMENT AND PLAN: 48-year-old with type 1 diabetes, history of noncompliance and multiple admissions for diabetic ketoacidosis (DKA), admitted due to intractable nausea, vomiting, and diarrhea. Since hospital admission, patient has been increasingly much more compliant with testing and treatment. She initially refused Reglan or Phenergan. On admission, refused CT abdomen and pelvis, KUB, gastric emptying scan, but was open to esophagogastroduodenoscopy (EGD). She denied any hematemesis, bright red blood per rectum, melena, black, tarry stools, dysphagia, odynophagia, or weight loss. Not requiring an EGD at this time. She was initially admitted for evaluation for diarrhea with plan for gastric emptying scan to rule out gastroparesis. Patient was kept on supportive care and was not in DKA on admission. Patient had acute kidney injury. IMPRESSION: 1. Mild diabetic ketoacidosis. No infectious etiology. Urinalysis (UA), chest x-ray negative. No diarrhea. No fever or chills. Procalcitonin unremarkable. No empiric antibiotics. Nonspecific findings on CT abdomen/pelvis. Continued on supportive care. Currently, on long-acting insulin with Levemir every 4 hourly lispro. Will continue with supportive care with D5W to prevent hypoglycemia until metabolic acidosis resolves. Insulin is not to be held until patient's metabolic acidosis is resolved. 2. Hypomagnesemia. Repleted. 3. Gastroparesis. On clears diet. Advance to low residue. Per Dr. Miles, who had seen the patient previously and discussed this case with me on 06/25/2019, he recommends continuing the Reglan and, if not tolerated, a trial of erythromycin and to continue with proton pump inhibitor (PPI) and outpatient followup. No acute indication for esophagogastroduodenoscopy (EGD) as the patient has no active gastrointestinal (GI) bleed. 4. Disposition. Correct the acidosis in the next 12-24 hours and discharge home in the morning, if stable. MTDD
[2019-06-26 10:00] VITALS: BP 109/67
[2019-06-26] MEDS ORDERED: HumaLOG INSULIN (NovoLOG) PER UNIT SC SCH (10:00)
[2019-06-26 12:49] LABS: BLOOD UREA NITROGEN 11 MG/DL (7-18); CALCIUM LEVEL 7.6 MG/DL (8.5-10.1); CARBON DIOXIDE LEVEL 23 MEQ/L (21-32); CHLORIDE LEVEL 107 MEQ/L (98-107); CREATININE FOR GFR 1.18 MG/DL (0.55-1.30); GLOMERULAR FILTRATION RATE > 60.0 (>58); GLUCOSE, FASTING 176 MG/DL (70-100); MAGNESIUM LEVEL 1.7 MG/DL (1.8-2.4); SODIUM LEVEL 139 MEQ/L (136-145)
[2019-06-26 14:00] VITALS: BP 118/81
[2019-06-26] MEDS: MAG SULF 1GM/100ML (MAG RUN) 1 GM in IV 1 EA IV SCH ×2 (14:15→15:36)
[2019-06-26] MEDS: POTASSIUM CHLORIDE 10 MEQ SR TABLET PO SCH ×3 (14:15→21:03)
[2019-06-26] MEDS: KCL 20MEQ IN D5W 1000ML 1,000 ML IV SCH ×2 (16:29→22:36)
[2019-06-26 18:00] VITALS: BP 136/81
[2019-06-26 18:57] LABS: BLOOD UREA NITROGEN 8 MG/DL (7-18); CALCIUM LEVEL 8.5 MG/DL (8.5-10.1); CARBON DIOXIDE LEVEL 30 MEQ/L (21-32); CHLORIDE LEVEL 101 MEQ/L (98-107); CREATININE FOR GFR 1.11 MG/DL (0.55-1.30); GLOMERULAR FILTRATION RATE > 60.0 (>58); GLUCOSE, FASTING 118 MG/DL (70-100); POTASSIUM SERUM 3.5 MEQ/L (3.5-5.1); SODIUM LEVEL 136 MEQ/L (136-145)
[2019-06-26 22:00] VITALS: BP 136/84
[2019-06-27 00:26] LABS: BLOOD UREA NITROGEN 6 MG/DL (7-18); CALCIUM LEVEL 8.7 MG/DL (8.5-10.1); CARBON DIOXIDE LEVEL 29 MEQ/L (21-32); CHLORIDE LEVEL 101 MEQ/L (98-107); CREATININE FOR GFR 1.07 MG/DL (0.55-1.30); GLOMERULAR FILTRATION RATE > 60.0 (>58); GLUCOSE, FASTING 92 MG/DL (70-100); POTASSIUM SERUM 2.9 MEQ/L (3.5-5.1); SODIUM LEVEL 134 MEQ/L (136-145)
[2019-06-27] MEDS ORDERED: POTASSIUM CHLORIDE 10% LIQ 20 MEQ/15 ML UDC PO ONE ×2 (00:45→04:45)
[2019-06-27] MEDS: HumaLOG INSULIN (NovoLOG) PER UNIT SC SCH ×4 (04:30→12:00)
[2019-06-27 06:00] VITALS: BP 135/84
--- NOTE | 2019-06-27 06:18 | IPN ---
DATE OF SERVICE: 06/26/2019 She was admitted with acute kidney injury. She has history of type 1 diabetes. I was called by nursing to report a critical value. Her potassium is 2.9. She is receiving IV fluid with 20 mEq of KCl 1000 mL. Her recheck potassium is 2.9. I ordered her to be placed on telemetry as potassium was low as well as KCl elixir because it was reported to me that she had refused her potassium pills earlier stating they were too big. They were cut in half. She still refused them. So I ordered 40 mEq elixir and to be repeated in 4 hours. I have been notified by nursing that despite discussing with the patient the importance of potassium as well as the hall monitor as she could have cardiac arrhythmias she refused to take the potassium. She was also notified she could have cardiac arrhythmias leading a cardiac arrest and she continued to refuse the liquid or the pills. She still continues on 20 mEq in 1000, but that did not raise it enough, it actually lowered it. Will continue to monitor the potassium. Discussed with Dr. Coyle who will also see the patient.
[2019-06-27 06:23] LABS: HEMATOCRIT 24.6 % (36.0-47.0); HEMOGLOBIN 8.4 g/dl (12.0-15.5); MEAN CORPUSCULAR HEMOGLOBIN 28.2 pg (27.0-33.0); MEAN CORPUSCULAR HGB CONC 34.1 g/dl (32.0-36.5); MEAN CORPUSCULAR VOLUME 82.6 fl (80.0-96.0); PLATELET COUNT, AUTOMATED 250 10^3/uL (150-450); RED BLOOD COUNT 2.98 10^6/uL (4.00-5.40); WHITE BLOOD COUNT 7.7 10^3/uL (4.0-10.0)
[2019-06-27 06:44] LABS: BLOOD UREA NITROGEN 6 MG/DL (7-18); CALCIUM LEVEL 8.9 MG/DL (8.5-10.1); CARBON DIOXIDE LEVEL 29 MEQ/L (21-32); CHLORIDE LEVEL 103 MEQ/L (98-107); CREATININE FOR GFR 1.01 MG/DL (0.55-1.30); GLOMERULAR FILTRATION RATE > 60.0 (>58); GLUCOSE, FASTING 41 MG/DL (70-100); POTASSIUM SERUM 3.1 MEQ/L (3.5-5.1); SODIUM LEVEL 136 MEQ/L (136-145)
[2019-06-27] MEDS ORDERED: POTASSIUM CHLORIDE 10 MEQ SR TABLET PO ONE ×2 (07:30→13:00)
[2019-06-27] MEDS: PANTOPRAZOLE 40MG TAB (PROTONIX) PO SCH (08:39)
[2019-06-27] MEDS: METOCLOPRAMIDE 10 MG TAB PO SCH ×2 (08:39→12:57)
[2019-06-27] MEDS ORDERED: MAGNESIUM OXIDE 400 MG TAB (MAG-OX) PO ONE (09:00)
[2019-06-27] MEDS ORDERED: MAG SULF 1GM/100ML (MAG RUN) 1 GM in IV 1 EA IV ONE (10:00)
[2019-06-27 10:26] LABS: BLOOD UREA NITROGEN 6 MG/DL (7-18); CALCIUM LEVEL 8.2 MG/DL (8.5-10.1); CARBON DIOXIDE LEVEL 30 MEQ/L (21-32); CHLORIDE LEVEL 105 MEQ/L (98-107); CREATININE FOR GFR 0.96 MG/DL (0.55-1.30); GLOMERULAR FILTRATION RATE > 60.0 (>58); GLUCOSE, FASTING 74 MG/DL (70-100); SODIUM LEVEL 139 MEQ/L (136-145)
--- NOTE | 2019-06-27 10:33 | DSES ---
DATE OF ADMISSION: 06/22/2019 DATE OF DISCHARGE: PRIMARY DISCHARGE DIAGNOSES: 1. Diabetic ketoacidosis. 2. Gastroparesis. 3. Medical noncompliance with taking Reglan and Protonix as outpatient. 4. Nonspecific colitis. 5. Hypokalemia. 6. Anemia of chronic disease. 7. Contaminated blood culture with Staphylococcus epidermidis on admission, on 06/12/2019, with negative repeat cultures on 06/23/2019 and 06/25/2019 with no antibiotics given. DISCHARGE MEDICATIONS: - Reglan 5 mg before food and nightly - Prilosec 20 mg twice a day - oxycodone 5 every 4 hours as needed (maximum daily dose of six, 3 day supply, 18 tablets) - prochlorperazine 25 mg per rectum every 8 as needed for nausea - multivitamin one tablet daily - Novolin insulin 70/30 sliding scale DISCHARGE INSTRUCTIONS: The patient was strongly urged to have a primary care physician followup visit within 5 days and to have primary care physician to refer to an health services rn, Becky Yee in [place] or Dr. Jing Echols in [place] due to recurrent episodes of diabetic ketoacidosis. The patient had three hospitalization admissions in 2019 and has already had three admissions this year in 2020 for diabetic ketoacidosis (DKA). HOSPITAL COURSE: This is a 48-year-old female with type 1 diabetes, only on sliding scale at home, presented to the emergency room (ER) with nausea and vomiting since Thursday. The patient works at [employer] and was eating some Occitan fries when she developed left lower quadrant abdominal pain, epigastric pain non-bloody and non-mucusy, watery diarrhea about 10 times the following Thursday. It subsided without taking any antimotility drugs. No fever or chills. She had a similar episode in the past when she presented with DKA. On admission, on 06/22/2019, her bicarbonate level was normal. Creatinine was 1.8. She was admitted for possible gastroparesis due to noncompliance not taking her medications. She refused a CT abdomen and pelvis nuclear gastric emptying scan and despite being urged to take proton pump inhibitor (PPI), Reglan the patient refused and was only given Phenergan. She says that Zofran does not work for her nausea. The patient was given intravenous (IV) fluids with resolution of her acute kidney injury. She continued to refuse further imaging studies and medications, and was kept on a medical-surgical floor on intravenous fluids. She started to developed metabolic acidosis with elevated acetone levels and was treated for ketoacidosis, kept on Levemir insulin and D5 with resolution of symptoms and the ability to eat without vomiting. The patient did have episodes of hypokalemia, which was repleted with potassium orally. Despite strong recommendations for compliance to take her Protonix and Reglan the patient says "I didn't even pick it up from the pharmacy because nothing helps." Dr. Miles was asked to review her case, did not see her as a formal work and family life consultant but recommended for her to followup in the office after completion of 6 weeks of PPI. The patient had no alarm symptoms of weight loss, dysphagia, odynophagia, hematemesis, bright red blood per rectum with what appears to be hemodilutional anemic did not require any emergent esophagogastroduodenoscopy (EGD). CT abdomen and pelvis was nonspecific. She is discharged home in stable condition. Temperature 98.8, pulse 91, respiratory rate 15, blood pressure 135/84, 100% on room air. Lungs are clear to auscultation. No wheezing or rales. Heart: S1 and S2, sinus. Abdomen is soft, nontender, and nondistended. Extremities: No edema. TIME SPENT ON DISCHARGE: 30 minutes. MTDD
[2019-06-27] MEDS ORDERED: KCL 10MEQ/100ML SWI (KRUN) 10 MEQ in IV 1 EA IV SCH (11:00)
== END 2019-06-27 14:19 | disposition home or self-care (01) | DRG 48 ==
LOC: M ED 10:33 → M ED INP 14:05 → ENRESERV 14:27 → M MSPAV 14:54
PROVIDERS: ADMIT General Practice; ATTEND General Practice
DX: E10.43 Type 1 diabetes mellitus with diabetic autonomic (poly)neuropathy (principal); N17.9 Acute kidney failure, unspecified; E10.65 Type 1 diabetes mellitus with hyperglycemia; K31.84 Gastroparesis; F17.210 Nicotine dependence, cigarettes, uncomplicated; Z79.4 Long term (current) use of insulin; Z91.11 Patient's noncompliance with dietary regimen; Z91.14 Patient's other noncompliance with medication regimen; D63.8 Anemia in other chronic diseases classified elsewhere; K52.9 Noninfective gastroenteritis and colitis, unspecified; E10.11 Type 1 diabetes mellitus with ketoacidosis with coma

== ENCOUNTER 2019-06-29 18:58 | Emergency (ER) | payer OTHER ==
[~2019-06-29] VITALS: Ht 170.2 cm; Wt 72.7 kg
[~2019-06-29 18:58] MED LIST changes: +HEAL1TAB6 PO; +ONETAB35 PO; +OXYC-517 PO; +PROC25SU24 PR
[2019-06-29] MEDS ORDERED: METOCLOPRAMIDE INJ 10MG/2ML VIAL (J2765) IV ONE (19:45)
[2019-06-29] MEDS ORDERED: MORPHINE 4 MG/ML 1ML VIAL/SYRINGE (J2270) IV PRN (19:45)
[2019-06-29] MEDS ORDERED: NS 1,000 ML IV ONE (19:45)
[2019-06-29 19:54] LABS: BASO % 0.3 % (0.0-1.0); EOS # 0.1 10^3/uL (0.0-0.5); HEMATOCRIT 28.8 % (36.0-47.0); HEMOGLOBIN 9.7 g/dl (12.0-15.5); LYMPH # 1.6 10^3/uL (1.5-5.0); LYMPH % 25.6 % (24.0-44.0); MEAN CORPUSCULAR HEMOGLOBIN 28.3 pg (27.0-33.0); MEAN CORPUSCULAR HGB CONC 33.7 g/dl (32.0-36.5); MONO # 0.5 10^3/uL (0.0-0.8); MONO % 8.3 % (0.0-5.0); NEUTROPHILS % 64.5 % (36.0-66.0); PLATELET COUNT, AUTOMATED 320 10^3/uL (150-450); RED BLOOD COUNT 3.43 10^6/uL (4.00-5.40); WHITE BLOOD COUNT 6.3 10^3/uL (4.0-10.0)
[2019-06-29] MEDS ORDERED: PANTOPRAZOLE 40MG INJ (PROTONIX) (C9113) IV ONE (20:00)
[2019-06-29 20:20] LABS: ACETONE/KETONE 20.66 MG/DL (<2.81); ALT/SGPT 24 U/L (12-78); BILIRUBIN,DIRECT < 0.1 MG/DL (0.0-0.2); BILIRUBIN,TOTAL 0.7 MG/DL (0.2-1.0); LIPASE 66 U/L (73-393); TOTAL PROTEIN 7.6 GM/DL (6.4-8.2)
[2019-06-29 20:26] LABS: OSMOLALITY SERUM 287 MOSM/KG (275-295)
[2019-06-29] MEDS ORDERED: HYDROMORPHONE HCL 0.5 MG/ 0.5 ML SYRINGE (J1170 PER 1) IM ONE (20:30)
[2019-06-29] MEDS ORDERED: METOCLOPRAMIDE INJ 10MG/2ML VIAL (J2765) IM ONE (20:30)
[2019-06-29] MEDS ORDERED: PROMETHAZINE 25 MG SUPP PR ONE (21:15)
[2019-06-29] MEDS ORDERED: PROC25SU24 PR (21:17)
[2019-06-29] MEDS ORDERED: ONDA4TAB6 PO (21:17)
[2019-06-29] MEDS ORDERED: REGL10TA6 PO (21:17)
[2019-06-29 21:37] VITALS: BP 126/82
== END 2019-06-29 21:38 | disposition home or self-care (01) ==
LOC: M ED 18:58
DX: E11.43 Type 2 diabetes mellitus with diabetic autonomic (poly)neuropathy (principal); Z91.14 Patient's other noncompliance with medication regimen; R00.0 Tachycardia, unspecified; Z79.899 Other long term (current) drug therapy; Z79.4 Long term (current) use of insulin
CPT/HCPCS: 36600; 80047; 80076; 82010; 82803; 83690; 83930; 85025; 93041; 96372; 99284; J1170; J2765

== ENCOUNTER 2019-07-09 11:25 | Emergency (ER) | payer OTHER ==
[~2019-07-09] VITALS: Ht 170.2 cm; Wt 72.7 kg
[2019-07-09 12:13] LABS: HEMATOCRIT 29.2 % (36.0-47.0); HEMOGLOBIN 9.5 g/dl (12.0-15.5); MEAN CORPUSCULAR HEMOGLOBIN 27.8 pg (27.0-33.0); MEAN CORPUSCULAR HGB CONC 32.5 g/dl (32.0-36.5); MEAN CORPUSCULAR VOLUME 85.4 fl (80.0-96.0); PLATELET COUNT, AUTOMATED 323 10^3/uL (150-450); RED BLOOD COUNT 3.42 10^6/uL (4.00-5.40); WHITE BLOOD COUNT 10.1 10^3/uL (4.0-10.0)
[2019-07-09] MEDS ORDERED: NS 1,000 ML IV ONE ×2 (12:15→14:15)
[2019-07-09] MEDS ORDERED: HumuLIN R (REGULAR) INSULIN (NovoLIN R) **100U/ML** PER UNIT IV ONE ×2 (12:15→13:45)
[2019-07-09 12:22] LABS: VENOUS BASE EXCESS -6.1 (-2.0-2.0); VENOUS O2 SATURATION 74.4 % (60.0-80.0); VENOUS PARTIAL PRESSURE CO2 41.7 mmHg (38.0-50.0); VENOUS PARTIAL PRESSURE O2 46.9 mmHg (30.0-50.0); VENOUS PH 7.298 UNITS (7.330-7.430); VENOUS STANDARD HCO3 19.1 MEQ/L; VENOUS TOTAL CO2 21.2 MEQ/L (24.0-28.0)
[2019-07-09 12:36] LABS: HEMOGLOBIN A1c 9.8 %
[2019-07-09 12:51] LABS: BLOOD UREA NITROGEN 21 MG/DL (7-18); CALCIUM LEVEL 9.5 MG/DL (8.5-10.1); CARBON DIOXIDE LEVEL 23 MEQ/L (21-32); CHLORIDE LEVEL 90 MEQ/L (98-107); CREATININE FOR GFR 1.39 MG/DL (0.55-1.30); ETHYL ALCOHOL (ETHANOL) < 0.003 % (0.000-0.010); GLOMERULAR FILTRATION RATE 52.6 (>58); GLUCOSE, FASTING 457 MG/DL (70-100); SODIUM LEVEL 126 MEQ/L (136-145)
[2019-07-09] MEDS ORDERED: KETOROLAC 30 MG/ML VIAL (J1885) IV ONE (13:15)
[2019-07-09] MEDS ORDERED: ONDANSETRON 4MG/2ML VIAL (J2405) IV ONE (13:15)
--- NOTE | 2019-07-09 13:47 | REP ---
LEFT RIB SERIES: Five views of the left ribs performed. No fracture or bone lesion is seen. A PA view of the chest demonstrates no acute infiltrate or pleural effusion. Heart and mediastinum are within normal limits. IMPRESSION: Negative left rib series. Electronically Signed by Asad Osorio MD 07/09/2019 02:30 P
[2019-07-09 14:16] VITALS: BP 120/83
[2019-07-09 15:00] LABS: AMPHETAMINES LEVEL URINE NEGATIVE (NEGATIVE); BARBITURATES URINE NEGATIVE (NEGATIVE); BENZODIAZEPINES URINE NEGATIVE (NEGATIVE); CANNABINOIDS URINE POSITIVE (NEGATIVE); COCAINE METABOLITE URINE NEGATIVE (NEGATIVE); METHADONE URINE NEGATIVE (NEGATIVE); OPIATES URINE NEGATIVE (NEGATIVE); PHENCYCLIDINE URINE NEGATIVE (NEGATIVE)
== END 2019-07-09 14:41 | disposition home or self-care (01) ==
LOC: M ED 11:25
DX: E11.65 Type 2 diabetes mellitus with hyperglycemia (principal); R07.89 Other chest pain; K21.9 Gastro-esophageal reflux disease without esophagitis; F17.200 Nicotine dependence, unspecified, uncomplicated; F19.10 Other psychoactive substance abuse, uncomplicated; F10.10 Alcohol abuse, uncomplicated; Z79.899 Other long term (current) drug therapy; Z79.4 Long term (current) use of insulin
CPT/HCPCS: 71101; 80048; 80307; 82803; 83036; 85027; 96361; 96374; 96375; 99284; G0480; J1885; J2405

== ENCOUNTER 2019-09-01 09:35 | Observation (INO) | payer OTHER ==
[~2019-09-01] VITALS: Ht 170.2 cm; Wt 70.5 kg
[2019-09-01] MEDS ORDERED: NS 1,000 ML IV ONE ×2 (10:15→12:15)
[2019-09-01 10:45] LABS: VENOUS BASE EXCESS -2.4 (-2.0-2.0); VENOUS O2 SATURATION 96.4 % (60.0-80.0); VENOUS PARTIAL PRESSURE CO2 31.9 mmHg (38.0-50.0); VENOUS PARTIAL PRESSURE O2 90.8 mmHg (30.0-50.0); VENOUS PH 7.437 UNITS (7.330-7.430); VENOUS STANDARD HCO3 22.5 MEQ/L
[2019-09-01 10:48] LABS: BASO # 0.1 10^3/uL (0.0-0.2); BASO % 0.5 % (0.0-1.0); EOS % 0.1 % (0.0-3.0); HEMATOCRIT 33.1 % (36.0-47.0); HEMOGLOBIN 11.2 g/dl (12.0-15.5); LYMPH # 1.2 10^3/uL (1.5-5.0); LYMPH % 9.4 % (24.0-44.0); MEAN CORPUSCULAR HEMOGLOBIN 28.3 pg (27.0-33.0); MEAN CORPUSCULAR HGB CONC 33.8 g/dl (32.0-36.5); MEAN CORPUSCULAR VOLUME 83.6 fl (80.0-96.0); MONO # 0.7 10^3/uL (0.0-0.8); MONO % 5.2 % (0.0-5.0); NEUTROPHILS # 10.8 10^3/uL (1.5-8.5); NEUTROPHILS % 84.3 % (36.0-66.0); PLATELET COUNT, AUTOMATED 311 10^3/uL (150-450); RED BLOOD COUNT 3.96 10^6/uL (4.00-5.40); WHITE BLOOD COUNT 12.8 10^3/uL (4.0-10.0)
[2019-09-01 11:16] LABS: HCG, SERUM QUALITATIVE NEGATIVE (NEGATIVE)
[2019-09-01 11:20] LABS: OSMOLALITY SERUM 312 MOSM/KG (275-295)
[2019-09-01 11:27] LABS: HEMOGLOBIN A1c 9.5 %
[2019-09-01 11:32] LABS: ALBUMIN 4.2 GM/DL (3.2-5.2); ALT/SGPT 16 U/L (12-78); BILIRUBIN,DIRECT 0.3 MG/DL (0.0-0.2); CK-MB VALUE MASS < 1.0 NG/ML (<3.6); CPK CREATINE PHOSPHOKINASE 53 U/L (26-192); LIPASE 53 U/L (73-393); MAGNESIUM LEVEL 2.3 MG/DL (1.8-2.4); MB/CK RELATIVE INDEX 1.89 (< OR =4); TOTAL PROTEIN 7.7 GM/DL (6.4-8.2); TROPONIN I < 0.02 NG/ML (< 0.10)
[2019-09-01 11:33] LABS: ACETONE/KETONE > 46.00 MG/DL (<2.81); ETHYL ALCOHOL (ETHANOL) < 0.003 % (0.000-0.010)
--- NOTE | 2019-09-01 11:55 | REP ---
CHEST, SINGLE VIEW: There is no evidence of acute infiltrate. No pleural effusion is seen. The heart is normal in size. The mediastinal silhouette is unremarkable. The visualized osseous structures are intact. IMPRESSION: No acute pulmonary disease. Electronically Signed by Asad Osorio MD 09/01/2019 12:44 P
[2019-09-01] MEDS ORDERED: HumaLOG INSULIN (NovoLOG) PER UNIT SC STA (12:09)
[2019-09-01] MEDS ORDERED: ONDANSETRON 4MG/2ML VIAL IV ONE (12:45)
[2019-09-01] MEDS: PROMETHAZINE INJ 25 MG/ML VIAL (J2550) IV ONE ×2 (12:49→13:29)
--- NOTE | 2019-09-01 15:02 | REP ---
CT ABDOMEN AND PELVIS WITHOUT CONTRAST: CT abdomen and pelvis performed without oral or IV contrast. Sagittal and coronal reconstruction images are performed. Comparison is made with a prior study of 06/25/2019. Visualized lung bases are clear. The liver, spleen, adrenals, pancreas and kidneys are grossly unremarkable. There is no renal artery calculus and no hydroureteronephrosis. There is no abdominal aortic aneurysm. There is no adenopathy. There is no free air. No bowel thickening is seen. The appendix is normal. I see no pelvic mass. There is a tiny amount of free fluid in the pelvis which is likely physiologic.. Urinary bladder is grossly unremarkable. IMPRESSION: No acute abnormality is detected. Electronically Signed by Asad Osorio MD 09/01/2019 05:05 P
[2019-09-01 16:42] LABS: AMPHETAMINES LEVEL URINE NEGATIVE (NEGATIVE); BARBITURATES URINE NEGATIVE (NEGATIVE); BENZODIAZEPINES URINE NEGATIVE (NEGATIVE); CANNABINOIDS URINE POSITIVE (NEGATIVE); COCAINE METABOLITE URINE NEGATIVE (NEGATIVE); METHADONE URINE NEGATIVE (NEGATIVE); OPIATES URINE NEGATIVE (NEGATIVE); PHENCYCLIDINE URINE NEGATIVE (NEGATIVE)
[2019-09-01] MEDS ORDERED: HEAL1TAB6 PO (16:52)
[2019-09-01] MEDS ORDERED: GLUCAGON INJ 1MG VIAL SC PRN (17:00)
[2019-09-01] MEDS ORDERED: GLUCOSE 4GM CHEW TABLET PO PRN (17:00)
[2019-09-01] MEDS ORDERED: DEXTROSE 50% 50 ML SYRINGE IV PRN (17:00)
--- NOTE | 2019-09-01 17:04 | HPEPDOC ---
[facility] Medical History & Physical Date of Admission September 01, 2019 Date of Service: September 01, 2019 History and Physical CHIEF COMPLAINT: NAUSEA VOMITING HISTORY OF PRESENT ILLNESS: 48 yo female presents for several week history of nausea and vomiting. Also notes several day history of intermittent abdominal pain, with no clear modifying factors. Denies chest pain, headaches, changes in vision. PAST MEDICAL HISTORY: #DM1 #medical non-compliance # Gastroparesis. # Nonspecific colitis. # Anemia of chronic disease. ALLERGIES: Please see below. REVIEW OF SYSTEMS: Negative except as per HPI HOME MEDICATIONS: Please see below. PHYSICAL EXAMINATION: VITAL SIGNS: See below General: NAD, lying comfortably in bed, hirsute HEENT: NC/AT, EOMI Lungs: CTA B/L Heart: +S1S2, RRR Abd: soft, +BS, tender Ext: no edema LABORATORY DATA: See below. MICROBIOLOGY: Please see below. ASSESSMENT: 48 yo female with PMHx DM1, gastroparesis, anemia of chronic disease and medical non-compliance admitted for persistent nausea and vomiting. #N/V - IV fluids - anti-emetics #DM1 - will use sliding scale while inpatient #DVT prophylaxis - heparin sc #medical non-compliance - complicates care # Gastroparesis. # Anemia of chronic disease - H/H stable #DVT prophylaxis - heparin SC Vital Signs Vital Signs Date Time Temp Pulse Resp B/P (MAP) Pulse Ox O2 Delivery O2 Flow Rate FiO2 09/01/19 15:45 83 18 136/85 (102) 100 Room Air 09/01/19 09:45 98.2 Laboratory Data Labs 24H Laboratory Tests 2 09/01/19 09:56: Bedside Glucose (Misc Panel) 427H 09/01/19 10:19: Immature Granulocyte % (Auto) 0.5, Neutrophils (%) (Auto) 84.3H, Lymphocytes (%) (Auto) 9.4L, Monocytes (%) (Auto) 5.2H, Eosinophils (%) (Auto) 0.1, Basophils (%) (Auto) 0.5, Neutrophils # (Auto) 10.8H, Lymphocytes # (Auto) 1.2L, Monocytes # (Auto) 0.7, Eosinophils # (Auto) 0.0, Basophils # (Auto) 0.1, Nucleated Red Blood Cells % (auto) 0.0, Blood Gas Bicarbonate Standard 22.5, Venous Blood pH 7.437H, Venous Blood Partial Pressure CO2 31.9L, Venous Blood Partial Pressure O2 90.8H, Venous Blood Total Carbon Dioxide 22.0L, Venous Blood HCO3 21.0L, Venous Blood Oxygen Saturation 96.4H, Venous Blood Base Excess -2.4L, Estimated Mean Plasma Glucose 226H, Hemoglobin A1c 9.5, Osmolality 312H, Magnesium Level 2.3, Total Bilirubin 1.0, Direct Bilirubin 0.3H, Aspartate Amino Transf (AST/SGOT) 16, Alanine Aminotransferase (ALT/SGPT) 16, Alkaline Phosphatase 78, Total Creatine Kinase 53, Creatine Kinase MB < 1.0, Creatine Kinase MB Relative Index 1.89, Troponin I < 0.02, Total Protein 7.7, Albumin 4.2, Albumin/Globulin Ratio 1.2, Lipase 53L, Human Chorionic Gonadotropin, Qual NEGATIVE, Ethyl Alcohol Level < 0.003, B-Hydroxybutyrate > 46.00H 09/01/19 10:40: POC Glucose (Misc Panel) 454H, POC Sodium (Misc Panel) 132L, POC Potassium (Misc Panel) 3.4L, POC Chloride (Misc Panel) 93L, POC Total CO2 (Misc Panel) 21.0L, POC Blood Urea Nitrogen (Misc Panel 37H, POC Ionized Calcium (Misc Panel) 4.4L, POC Creatinine (Misc Panel) 1.6H, POC Hematocrit (Misc Panel) 36.0L 09/01/19 12:37: Bedside Glucose (Misc Panel) 361H 09/01/19 15:49: Bedside Glucose (Misc Panel) 116H 09/01/19 16:02: Urine Color YELLOW, Urine Appearance CLEAR, Urine pH 5.0, Urine Specific [place] 1.024, Urine Protein 1+H, Urine Glucose (UA) 3+H, Urine Ketones 2+H, Urine Blood NEGATIVE, Urine Nitrite NEGATIVE, Urine Bilirubin NEGATIVE, Urine Urobilinogen 0.2, Urine Leukocyte Esterase TRACEH, Urine WBC (Auto) 2, Urine RBC (Auto) 0, Urine Hyaline Casts (Auto) 1, Urine Bacteria (Auto) 1+H, Urine Squamous Epithelial Cells 1, Urine Sperm (Auto) , Urine Opiates Screen NEGATIVE, Urine Methadone Screen NEGATIVE, Urine Barbiturates Screen NEGATIVE, Urine Phencyclidine Screen NEGATIVE, Urine Amphetamines Screen NEGATIVE, Urine Benzodiazepines Screen NEGATIVE, Urine Cocaine Metabolite Screen NEGATIVE, Urine Cannabinoids Screen POSITIVEH CBC/BMP Laboratory Tests 09/01/19 10:19 Microbiology Microbiology 09/01/19 Urine Culture, Received Pending 09/01/19 Blood Culture, Received Pending 09/01/19 Blood Culture, Received Pending Home Medications Scheduled Insulin NPH Hum/Reg Insulin Hm (Novolin 70-30 100 Unit/ml Vial) 100 Unit/1 Ml Vial, 1 DOSE SC BID PER SLIDING SCALE Multivitamin/Folic Acid/Biotin (Hair, Skin and Nails Tablet) 1 Each Tablet, 1 TAB PO DAILY Allergies Coded Allergies: No Known Allergies (Verified , 06/03/19) A-FIB/CHADSVASC A-FIB History Current/History of A-Fib/PAF?: No EDRE RGOVES MD September 01, 2019 17:04
[2019-09-01] MEDS: NS 1,000 ML IV SCH (19:01)
[2019-09-01] MEDS: HumaLOG INSULIN (NovoLOG) PER UNIT SC SCH (19:01)
[2019-09-01 20:00] VITALS: BP 131/76
[2019-09-01] MEDS ORDERED: HumaLOG INSULIN (NovoLOG) PER UNIT SC SCH (21:00)
--- NOTE | 2019-09-01 21:04 | ECGEPIP ---
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
[2019-09-01] MEDS: HEPARIN SOD (PORCINE) 5000UNITS/ML VIAL (J1644 PER 1000UNITS) SC SCH (21:40)
[2019-09-01] MEDS: LEVEMIR (INSULIN DETEMIR) 1 UNITS/0.01ML SC SCH (21:46)
[2019-09-01] MEDS: ONDANSETRON 4MG/2ML VIAL IV PRN (21:46)
[2019-09-02] MEDS: HEPARIN SOD (PORCINE) 5000UNITS/ML VIAL (J1644 PER 1000UNITS) SC SCH (05:06)
[2019-09-02] MEDS: NS 1,000 ML IV SCH (05:55)
[2019-09-02 06:31] VITALS: BP 131/71
[2019-09-02] MEDS: ONDANSETRON 4MG/2ML VIAL IV PRN (06:49)
[2019-09-02 07:03] LABS: HEMATOCRIT 29.6 % (36.0-47.0); MEAN CORPUSCULAR HEMOGLOBIN 28.6 pg (27.0-33.0); MEAN CORPUSCULAR HGB CONC 33.8 g/dl (32.0-36.5); MEAN CORPUSCULAR VOLUME 84.6 fl (80.0-96.0); PLATELET COUNT, AUTOMATED 277 10^3/uL (150-450); WHITE BLOOD COUNT 8.6 10^3/uL (4.0-10.0)
[2019-09-02] MEDS: HumaLOG INSULIN (NovoLOG) PER UNIT SC SCH ×2 (07:30→12:00)
[2019-09-02 07:58] LABS: ALBUMIN 3.3 GM/DL (3.2-5.2); ALT/SGPT 16 U/L (12-78); BILIRUBIN,TOTAL 0.7 MG/DL (0.2-1.0); BLOOD UREA NITROGEN 28 MG/DL (7-18); CALCIUM LEVEL 8.8 MG/DL (8.5-10.1); CARBON DIOXIDE LEVEL 26 MEQ/L (21-32); CHLORIDE LEVEL 106 MEQ/L (98-107); CREATININE FOR GFR 1.24 MG/DL (0.55-1.30); GLOMERULAR FILTRATION RATE > 60.0 (>58); GLUCOSE, FASTING 79 MG/DL (70-100); MAGNESIUM LEVEL 2.1 MG/DL (1.8-2.4); POTASSIUM SERUM 3.4 MEQ/L (3.5-5.1); SODIUM LEVEL 141 MEQ/L (136-145); TOTAL PROTEIN 6.4 GM/DL (6.4-8.2)
[2019-09-02] MEDS: LEVEMIR (INSULIN DETEMIR) 1 UNITS/0.01ML SC SCH (08:21)
[2019-09-02] MEDS ORDERED: ZOFR4TAB16 PO (10:10)
--- NOTE | 2019-09-02 11:59 | DS.PDOC ---
Discharge Summary General Date of Admission September 01, 2019 at 09:36 Date of Discharge 09/02/19 Discharge Summary PROCEDURES PERFORMED DURING STAY: [None]. ADMITTING DIAGNOSES: 1. nausea DISCHARGE DIAGNOSES: 1. medical non-compliance 2. DM1 3. AOCD 4. Gastroparesis COMPLICATIONS/CHIEF COMPLAINT: Hyperglycemia,Nausea And Vomiting. HOSPITAL COURSE: 48 yo female admitted for nausea and vomiting. Known history of medical noncompliance, and type 1 diabetes. Recently discharged with instruction to follow up with medical providers, however patient states she was unable to do so. Patient's symptoms improved, laboratory studies unremarkable. Patient discharged home with outpatient follow up. DISCHARGE MEDICATIONS: Please see below. ALLERGIES: Please see below. PHYSICAL EXAMINATION ON DISCHARGE: VITAL SIGNS: See below General: NAD, lying comfortably in bed, hirsute HEENT: NC/AT, EOMI Lungs: CTA B/L Heart: +S1S2, RRR Abd: soft, +BS, tender Ext: no edema LABORATORY DATA: Please see below. ACTIVITY: [As tolerated]. DIET: carb consistent as tolerated DISCHARGE PLAN: Discharge home DISCHARGE INSTRUCTIONS: 1. Follow up with PCP as scheduled 2. Follow up with endocrinology as scheduled DISCHARGE CONDITION: [Stable]. TIME SPENT ON DISCHARGE: 35 minutes. Vital Signs/I&Os Vital Signs Date Time Temp Pulse Resp B/P (MAP) Pulse Ox O2 Delivery O2 Flow Rate FiO2 09/02/19 06:31 97.2 85 20 131/71 (91) 97 Room Air I&O- Last 24 Hours up to 6 AM 09/02/19 06:00 Intake Total 2300 ml Output Total 0 ml Balance 2300 ml Laboratory Data Labs 24H Laboratory Tests 2 09/01/19 12:37: Bedside Glucose (Misc Panel) 361H 09/01/19 15:49: Bedside Glucose (Misc Panel) 116H 09/01/19 16:02: Urine Color YELLOW, Urine Appearance CLEAR, Urine pH 5.0, Urine Specific [place] 1.024, Urine Protein 1+H, Urine Glucose (UA) 3+H, Urine Ketones 2+H, Urine Blood NEGATIVE, Urine Nitrite NEGATIVE, Urine Bilirubin NEGATIVE, Urine Urobilinogen 0.2, Urine Leukocyte Esterase TRACEH, Urine WBC (Auto) 2, Urine RBC (Auto) 0, Urine Hyaline Casts (Auto) 1, Urine Bacteria (Auto) 1+H, Urine Squamous Epithelial Cells 1, Urine Sperm (Auto) , Urine Opiates Screen NEGATIVE, Urine Methadone Screen NEGATIVE, Urine Barbiturates Screen NEGATIVE, Urine Phencyclidine Screen NEGATIVE, Urine Amphetamines Screen NEGATIVE, Urine Benzodiazepines Screen NEGATIVE, Urine Cocaine Metabolite Screen NEGATIVE, Urine Cannabinoids Screen POSITIVEH 09/01/19 18:55: Bedside Glucose (Misc Panel) 222H 09/01/19 21:38: Bedside Glucose (Misc Panel) 109H 09/01/19 23:30: Bedside Glucose (Misc Panel) 40L 09/02/19 00:16: Bedside Glucose (Misc Panel) 110H 09/02/19 06:49: Nucleated Red Blood Cells % (auto) 0.0, Anion Gap 9, Glomerular Filtration Rate > 60.0, Calcium Level 8.8, Magnesium Level 2.1, Total Bilirubin 0.7, Aspartate Amino Transf (AST/SGOT) 12, Alanine Aminotransferase (ALT/SGPT) 16, Alkaline Phosphatase 67, Total Protein 6.4, Albumin 3.3#, Albumin/Globulin Ratio 1.1L 09/02/19 11:53: Bedside Glucose (Misc Panel) 96 CBC/BMP Laboratory Tests 09/02/19 06:49 FSBS Laboratory Tests Test 09/01/19 12:37 09/01/19 15:49 09/01/19 18:55 09/01/19 21:38 Range/Units Bedside Glucose (Misc Panel) 361 116 222 109 70-105 MG/DL Test 09/01/19 23:30 09/02/19 00:16 09/02/19 11:53 Range/Units Bedside Glucose (Misc Panel) 40 110 96 70-105 MG/DL Microbiology Microbiology 09/01/19 Urine Culture, Received Pending 09/01/19 Blood Culture, Received Pending 09/01/19 Blood Culture - Preliminary, Resulted No growth after 24 hours . All specim... Discharge Medications Scheduled Insulin NPH Hum/Reg Insulin Hm (Novolin 70-30 100 Unit/ml Vial) 100 Unit/1 Ml Vial, 1 DOSE SC BID, (Reported) PER SLIDING SCALE Multivitamin/Folic Acid/Biotin (Hair, Skin and Nails Tablet) 1 Each Tablet, 1 TAB PO DAILY, (Reported) Ondansetron HCl (Zofran) 4 Mg Tablet, 4 MG PO Q6H Allergies Coded Allergies: No Known Allergies (Verified , 06/03/19) EDER GROVES MD September 02, 2019 11:59
== END 2019-09-02 12:30 | disposition home or self-care (01) ==
LOC: EDBD 09:35 → M ED 09:35 → M ED INP 09:36 → ENRESERVDT 18:09 → ENRESERVTM 18:09 → M MS5PR 18:52
PROVIDERS: ADMIT Internal Medicine; ATTEND Internal Medicine
DX: E10.65 Type 1 diabetes mellitus with hyperglycemia (principal); D64.9 Anemia, unspecified; K31.84 Gastroparesis; Z91.19 Patient's noncompliance with other medical treatment and regimen; K52.9 Noninfective gastroenteritis and colitis, unspecified; K20.9 Esophagitis, unspecified; N17.9 Acute kidney failure, unspecified; Z79.899 Other long term (current) drug therapy; F17.200 Nicotine dependence, unspecified, uncomplicated
CPT/HCPCS: 36415; 71045; 74176; 80047; 80053; 80076; 80307; 82010; 82550; 82553; 82803; 83036; 83690; 83735; 83930; 84703; 85025; 85027; 87040; 87086; 93005; 93041; 94760; 96361; 96374; 96375; 96376; 99285; G0480; J2405

== ENCOUNTER 2019-10-13 17:36 | Inpatient (IN) | payer OTHER ==
[~2019-10-13] VITALS: Ht 170.2 cm; Wt 70.5 kg
[2019-10-13] MEDS ORDERED: NS 1,000 ML IV ONE ×2 (18:00→18:30)
[2019-10-13 18:28] LABS: BASO % 0.5 % (0.0-1.0); EOS % 0.1 % (0.0-3.0); HEMATOCRIT 32.2 % (36.0-47.0); HEMOGLOBIN 10.8 g/dl (12.0-15.5); LYMPH # 1.5 10^3/uL (1.5-5.0); LYMPH % 19.4 % (24.0-44.0); MEAN CORPUSCULAR HEMOGLOBIN 28.1 pg (27.0-33.0); MEAN CORPUSCULAR HGB CONC 33.5 g/dl (32.0-36.5); MEAN CORPUSCULAR VOLUME 83.9 fl (80.0-96.0); MONO # 0.5 10^3/uL (0.0-0.8); MONO % 7.2 % (0.0-5.0); NEUTROPHILS # 5.4 10^3/uL (1.5-8.5); NEUTROPHILS % 72.7 % (36.0-66.0); PLATELET COUNT, AUTOMATED 278 10^3/uL (150-450); RED BLOOD COUNT 3.84 10^6/uL (4.00-5.40); WHITE BLOOD COUNT 7.5 10^3/uL (4.0-10.0)
[2019-10-13] MEDS ORDERED: METOCLOPRAMIDE INJ 10MG/2ML VIAL (J2765 PER 1) IV ONE (18:30)
[2019-10-13] MEDS ORDERED: INSULIN IV RATE CHANGE DOCUMENTATION ML/HR XX SCH ×2 (18:30→19:00)
[2019-10-13] MEDS ORDERED: INSULIN REGULAR IN 0.9 % NACL 100 UNIT in IV 1 EA IV SCH ×4 (18:30→18:57)
[2019-10-13 18:54] LABS: ALBUMIN 3.9 GM/DL (3.2-5.2); ALT/SGPT 14 U/L (12-78); BILIRUBIN,DIRECT 0.2 MG/DL (0.0-0.2); LIPASE 59 U/L (73-393); TOTAL PROTEIN 7.5 GM/DL (6.4-8.2)
[2019-10-13] MEDS ORDERED: ONDA-83 PO (18:58)
[2019-10-13] MEDS ORDERED: PROMETHAZINE INJ 25 MG/ML VIAL (J2550) IV PRN (19:00)
[2019-10-13 19:27] LABS: OSMOLALITY SERUM 303 MOSM/KG (275-295)
[2019-10-13 19:33] LABS: ACETAMINOPHEN LEVEL < 2.0 UG/ML (10.0-30.0); ACETONE/KETONE > 46.00 MG/DL (<2.81); ETHYL ALCOHOL (ETHANOL) < 0.003 % (0.000-0.010); SALICYLATE LEVEL 2.4 MG/DL (5.0-30.0)
[2019-10-13] MEDS: NS 1,000 ML IV SCH ×2 (19:35→20:13)
[2019-10-13 19:51] LABS: VENOUS BASE EXCESS -10.6 (-2.0-2.0); VENOUS HCO3 11.1 MEQ/L (23.0-27.0); VENOUS O2 SATURATION 99.2 % (60.0-80.0); VENOUS PARTIAL PRESSURE CO2 16.8 mmHg (38.0-50.0); VENOUS PARTIAL PRESSURE O2 166.5 mmHg (30.0-50.0); VENOUS PH 7.438 UNITS (7.330-7.430); VENOUS STANDARD HCO3 16.1 MEQ/L; VENOUS TOTAL CO2 11.6 MEQ/L (24.0-28.0)
[2019-10-13] MEDS: INSULIN IV RATE CHANGE DOCUMENTATION ML/HR XX SCH ×3 (19:59→23:30)
[2019-10-13] MEDS: INSULIN REGULAR IN 0.9 % NACL 100 UNIT in IV 1 EA IV SCH ×6 (20:02→22:17)
[2019-10-13] MEDS ORDERED: NS 1,000 ML IV SCH (21:30)
[2019-10-13 21:44] LABS: HCG, SERUM QUANTITATIVE < 1.0 MIU/ML
[2019-10-13] MEDS: D5W/0.45% SODIUM CHLORIDE 1,000 ML IV SCH ×2 (22:23→22:25)
[2019-10-13 22:36] LABS: CREATININE FOR GFR 1.41 MG/DL (0.55-1.30); GLOMERULAR FILTRATION RATE 51.6 (>58); POTASSIUM SERUM 3.2 MEQ/L (3.5-5.1)
[2019-10-13 22:50] VITALS: BP 129/73
[2019-10-13 23:00] VITALS: BP 129/79
[2019-10-13] MEDS ORDERED: KCL 40MEQ IN D5/0.45NS 1000ML 1,000 ML IV SCH (23:06)
[2019-10-13] MEDS ORDERED: GLUCAGON INJ 1MG VIAL SC PRN (23:15)
[2019-10-13] MEDS ORDERED: DEXTROSE 50% 50 ML SYRINGE IV PRN (23:15)
[2019-10-13] MEDS ORDERED: GLUCOSE 4GM CHEW TABLET PO PRN (23:15)
[2019-10-13] MEDS ORDERED: D5W IV SCH (23:25)
[2019-10-13] MEDS ORDERED: SODIUM CHLORIDE IV SCH (23:25)
[2019-10-13] MEDS ORDERED: POTASSIUM CHLORIDE IV SCH (23:25)
[2019-10-13] MEDS ORDERED: LEVEMIR (INSULIN DETEMIR) 1 UNITS/0.01ML SC ONE (23:30)
[2019-10-14] VITALS: BP 113/67
[2019-10-14] MEDS ORDERED: METOCLOPRAMIDE INJ 10MG/2ML VIAL (J2765 PER 1) IV SCH
[2019-10-14] MEDS: INSULIN IV RATE CHANGE DOCUMENTATION ML/HR XX SCH (00:10)
[2019-10-14] MEDS: KCL 40MEQ IN D5/0.45NS 1000ML 1,000 ML IV SCH ×2 (00:11→04:30)
[2019-10-14 02:00] VITALS: BP 166/85
[2019-10-14 02:37] LABS: AMPHETAMINES LEVEL URINE NEGATIVE (NEGATIVE); BARBITURATES URINE NEGATIVE (NEGATIVE); BENZODIAZEPINES URINE NEGATIVE (NEGATIVE); CANNABINOIDS URINE POSITIVE (NEGATIVE); COCAINE METABOLITE URINE NEGATIVE (NEGATIVE); METHADONE URINE NEGATIVE (NEGATIVE); OPIATES URINE NEGATIVE (NEGATIVE); PHENCYCLIDINE URINE NEGATIVE (NEGATIVE)
[2019-10-14] MEDS ORDERED: ONDANSETRON 4MG/2ML VIAL IV PRN (02:45)
[2019-10-14 03:26] LABS: BLOOD UREA NITROGEN 22 MG/DL (7-18); CALCIUM LEVEL 7.8 MG/DL (8.5-10.1); CARBON DIOXIDE LEVEL 23 MEQ/L (21-32); CHLORIDE LEVEL 111 MEQ/L (98-107); CREATININE FOR GFR 1.15 MG/DL (0.55-1.30); GLOMERULAR FILTRATION RATE > 60.0 (>58); GLUCOSE, FASTING 157 MG/DL (70-100); POTASSIUM SERUM 3.6 MEQ/L (3.5-5.1); SODIUM LEVEL 141 MEQ/L (136-145)
[2019-10-14 04:00] VITALS: BP 143/83
[2019-10-14] MEDS ORDERED: HumaLOG INSULIN (NovoLOG) PER UNIT SC SCH ×2 (06:00→21:00)
[2019-10-14 06:08] LABS: HEMOGLOBIN 9.2 g/dl (12.0-15.5); MEAN CORPUSCULAR HEMOGLOBIN 28.7 pg (27.0-33.0); MEAN CORPUSCULAR HGB CONC 34.1 g/dl (32.0-36.5); MEAN CORPUSCULAR VOLUME 84.1 fl (80.0-96.0); PLATELET COUNT, AUTOMATED 238 10^3/uL (150-450); RED BLOOD COUNT 3.21 10^6/uL (4.00-5.40); WHITE BLOOD COUNT 7.4 10^3/uL (4.0-10.0)
[2019-10-14 06:25] LABS: BLOOD UREA NITROGEN 19 MG/DL (7-18); CARBON DIOXIDE LEVEL 22 MEQ/L (21-32); CHLORIDE LEVEL 110 MEQ/L (98-107); CREATININE FOR GFR 1.02 MG/DL (0.55-1.30); GLOMERULAR FILTRATION RATE > 60.0 (>58); GLUCOSE, FASTING 187 MG/DL (70-100); SODIUM LEVEL 139 MEQ/L (136-145)
[2019-10-14 06:30] LABS: MAGNESIUM LEVEL 1.9 MG/DL (1.8-2.4); PHOSPHORUS LEVEL 1.6 MG/DL (2.5-4.9)
[2019-10-14 08:00] VITALS: BP 135/82
--- NOTE | 2019-10-14 08:18 | REP ---
REASON: Nausea and vomiting. FINDINGS: The technique utilized in obtaining the radiograph has magnified the cardiac silhouette and accentuated the interstitial markings. The superior mediastinal structures are midline. The cardiac silhouette is unremarkable in size, shape, and position. The diaphragmatic surfaces of the lungs are regular, and the costophrenic angles are clear. The pulmonary aponte are clear. The imaged osseous structures are intact. IMPRESSION: There is no acute cardiopulmonary disease. Electronically Signed by Bird Betts DO 10/14/2019 09:17 A
[2019-10-14] MEDS ORDERED: DEXTROSE 50% 50 ML SYRINGE IV PRN (08:45)
--- NOTE | 2019-10-14 10:18 | ECGEPIP ---
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
[2019-10-14] MEDS ORDERED: KETOROLAC 30 MG/ML 1ML VIAL IV ONE (10:30)
[2019-10-14] MEDS: PANTOPRAZOLE 40MG VIAL (C9113 PER 1) IV SCH ×2 (11:15→20:46)
[2019-10-14] MEDS ORDERED: SUCRALFATE SUSP 1GM/10ML UD PO SCH (12:00)
--- NOTE | 2019-10-14 12:51 | HPE ---
DATE OF ADMISSION: 10/13/2019 CHIEF COMPLAINT: Abdominal pain, nausea, vomiting. HISTORY OF PRESENT ILLNESS: This is a 49-year-old -[place]ene[place] female with history of type 1 diabetes usually managed by [facility] physician, Dr. Lopez, on 70/30 insulin who presents to the emergency room today after having nausea, vomiting and persistent epigastric abdominal pain since Thursday. The patient went out to eat on Thursday night and when she woke up on Thursday had significant epigastric pain with nausea and vomiting throughout the day, felt lightheaded and slightly dizzy. Sugar levels have been ranging 373 to 400 at home. She otherwise denies any fever or chills, shortness of breath, chest pain, pressure or tightness. No dysuria, urgency or frequency. No cough. No traveling outside of the [facility]. The patient also denies upper or lower extremity weakness, sore throat, rhinorrhea, changes in vision. No changes in weight. No lumps or bumps or any joint pain. The patient rates the abdominal pain in the epigastric area as 10/10 when it comes on without any radiation. Usually comes and goes. No medications were taken for this at home. She presents today because "things were getting so bad". In the emergency room, she was found to have a significant metabolic acidosis, bicarbonate of 13, high anion gap and admitted for diabetic ketoacidosis. PAST MEDICAL HISTORY: Type 1 diabetes. Multiple admissions for diabetic ketoacidosis, acute kidney injury. PAST SURGICAL HISTORY: None. ALLERGIES: No known drug allergies. HOME MEDICATIONS: - 70/30 insulin subcutaneous twice a day - Zofran 4 mg every 6 hours as needed - multivitamin one tablet daily FAMILY HISTORY: Mother 69 with diabetes. Father 67 no medical problems. Three brothers, one sister, alive and well. SOCIAL HISTORY: Previously worked at [employer]. Currently unemployed due to [employer]. Denies recreational drug use. Smoked four cigarettes a day and has not smoked in over 7 months. REVIEW OF SYSTEMS: Per history of present illness (HPI), 12 point system otherwise negative. PHYSICAL EXAMINATION: Temperature 98.3, pulse 92, respiratory rate 20, blood pressure 120/58, 100% on room air. Generally, the patient is awake, alert and oriented times three. The patient has dry mucous membranes, chapped lips. No respiratory distress. No cyanosis. Neck is supple with full range of motion. No cervical lymphadenopathy or thyromegaly. Lungs are clear to auscultation. No wheezing, rales or rhonchi. Heart: S1, S2. Sinus rhythm. Abdomen: Soft. Tender epigastric and left lower quadrant. No rebound or guarding. Positive bowel sounds times four quadrants. Extremities: No cyanosis, clubbing or any pitting edema. No costovertebral angle (CVA) tenderness. LABORATORY DATA: White count 7.5, hemoglobin 10.8, hematocrit 32.2, platelet count 278. Sodium 132, potassium 3.9, chloride 100, bicarb 14, BUN 34, creatinine 1.4, glucose 349, ionized calcium 4.2. B-hydroxybutyrate greater than 46. ASSESSMENT: 49-year-old with type 1 diabetes and multiple admissions for diabetic ketoacidosis who presents with nausea, vomiting and epigastric pain since Thursday, who says that she is compliant with her medications and found to be in DKA with acute kidney injury. IMPRESSION: 1. Diabetic ketoacidosis. Patient says that she was compliant with her medications. She complains of left lower quadrant abdominal pain. Will check urinalysis (UA), urine culture and sensitivity, to rule out acute urinary tract infection for patient's decompensation. No empiric antibiotics for now. Obtain a stat chest x-ray. The patient is on insulin drip until anion gap has closed. Continue with IV fluid hydration until glucose is 250 and then change to D5 1/2 normal at 250 an hour until anion gap is closed. Finger sticks every 1 hour and BMP, potassium, magnesium and phos every 4 hours and replete as needed. Nothing by mouth status for now. 2. Acute kidney injury due to volume depletion from n/v. ivfluids. renally dose meds, and avoid nephrotoxins. monitor i/o. 3. Hypokalemia. Hypophosphatemia, repleted. due to vomiting,and insulin iv gtt. 4. Diabetic gastroparesis reglan ach once tolerating oral diet. small more frequent protein rich meals. pt prefers phenergan for nausea. no reglan for now. Deep vein thrombosis (DVT) prophylaxis with compression stockings. Disposition: 2-3 days pending oral intake. MTDD
[2019-10-14] MEDS: HumaLOG INSULIN (NovoLOG) PER UNIT SC SCH ×2 (13:00→17:30)
[2019-10-14] MEDS: METOCLOPRAMIDE INJ 10MG/2ML VIAL (J2765 PER 1) IV SCH ×3 (13:00→20:20)
[2019-10-14] MEDS: NEUTRA-PHOS 1.5 GM PACKET PO SCH ×2 (13:02→17:51)
[2019-10-14] MEDS: KCL 20MEQ IN D5/0.45NS 1000ML 1,000 ML IV SCH ×2 (14:29→20:47)
[2019-10-14 16:18] VITALS: BP 145/92
[2019-10-14] MEDS ORDERED: HumaLOG INSULIN (NovoLOG) PER UNIT SC ONE (20:30)
[2019-10-14 20:55] VITALS: BP 131/85
[2019-10-14] MEDS ORDERED: LEVEMIR (INSULIN DETEMIR) 1 UNITS/0.01ML SC SCH (21:00)
--- NOTE | 2019-10-14 21:19 | IPN ---
DATE: 10/14/2019 Patient still complains of some epigastric left lower quadrant abdominal discomfort rated as 3/10 when she is not moving. Patient had a low grade temperature 100.0. No chills. No vomiting. No other issues overnight. Patient's anion gap is closed, currently on Levemir insulin, advancing to a consistent carbohydrate diet. Maximum temperature (T max) 100.0, pulse 81, respiratory rate 16, blood pressure 135/82, 100% on room air. Generally, awake, alert, oriented to person, place and time. No icterus or jaundice. No pallor. Dry mucous membranes. Lungs are clear to auscultation. No wheezing, rales or rhonchi. Heart: S1, S2, sinus rhythm. Abdomen is soft, tender in the left lower quadrant, epigastric. No rebound or guarding. No costovertebral angle (CVA) tenderness. Extremities: No cyanosis, clubbing or pitting edema. LABORATORY DATA: CBC, metabolic panel have been reviewed. Notable for normal creatinine of 1.02, phosphorus is low at 1.6 and magnesium of 1.9. Potassium is normal at 4. Urinalysis reviewed. Urine culture pending. ASSESSMENT AND PLAN: A 49-year-old with type 1 diabetes, gastroparesis, presented with nausea, vomiting, epigastric abdominal pain since eating out on Thursday, progressed on to Thursday, found to be in diabetic ketoacidosis (DKA). Patient has not seen a audit consultant and usually managed by her primary care physician. She was noted to have hypokalemia, acute kidney injury and diabetic ketoacidosis with high anion gap on admission. The patient has since closed her gap and currently on a consistent carbohydrate diet. IMPRESSION: 1. Diabetic ketoacidosis, resolved. Patient needs an endocrine referral. She has gastroparesis, has had multiple admissions for DKA in the past. Patient is currently on fingersticks before food and nightly. Advance to consistent carbohydrate diet, off of IV fluids. One to two more days of hospital admission and may discharge once she is tolerating a diet. 2. Gastroparesis. Patient was encouraged to have small frequent meals, high protein intake. Reglan before food and nightly and Protonix. Patient still complains of some epigastric discomfort with some nausea. Therefore, she will be kept on Reglan and Phenergan for nausea. 3. Acute kidney injury, resolved. Secondary to dehydration from nausea, vomiting. DISPOSITION: 1-2 more days pending oral intake. MTDD
== END 2019-10-14 22:30 | disposition left against medical advice (07) | DRG 420 ==
LOC: EDBD 17:36 → M ED 17:36 → M ED INP 18:59 → ENRESERV 21:13 → M ICU 22:40
PROVIDERS: ADMIT General Practice; ATTEND General Practice
DX: E10.10 Type 1 diabetes mellitus with ketoacidosis without coma (principal); N17.9 Acute kidney failure, unspecified; K31.84 Gastroparesis; E83.39 Other disorders of phosphorus metabolism; E10.43 Type 1 diabetes mellitus with diabetic autonomic (poly)neuropathy; E87.6 Hypokalemia; E86.0 Dehydration; Z87.891 Personal history of nicotine dependence; Z79.4 Long term (current) use of insulin; Z79.899 Other long term (current) drug therapy

== ENCOUNTER 2019-10-21 13:19 | Observation (INO) | payer OTHER ==
[~2019-10-21] VITALS: Ht 170.2 cm; Wt 94.4 kg
[~2019-10-21 13:19] MED LIST changes: -ASPI81TA85 PO; +ASPI81TA86 PO; +ONDA-83 PO; +PANT40TA29 PO; -PANT40TA3 PO
[2019-10-21] MEDS ORDERED: NS 1,000 ML IV ONE ×2 (13:45→15:45)
[2019-10-21] MEDS ORDERED: PROMETHAZINE INJ 25 MG/ML VIAL (J2550) IV ONE (13:45)
[2019-10-21] MEDS ORDERED: PANTOPRAZOLE 40MG VIAL (C9113 PER 1) IV ONE (13:45)
[2019-10-21] MEDS ORDERED: DEXTROSE 50% 50 ML SYRINGE IV STA (14:35)
[2019-10-21 15:28] LABS: VENOUS BASE EXCESS -4.4 (-2.0-2.0); VENOUS HCO3 20.1 MEQ/L (23.0-27.0); VENOUS O2 SATURATION 98.1 % (60.0-80.0); VENOUS PARTIAL PRESSURE CO2 34.8 mmHg (38.0-50.0); VENOUS PARTIAL PRESSURE O2 110.6 mmHg (30.0-50.0); VENOUS STANDARD HCO3 20.8 MEQ/L; VENOUS TOTAL CO2 21.2 MEQ/L (24.0-28.0)
[2019-10-21 15:30] LABS: BASO # 0.1 10^3/uL (0.0-0.2); BASO % 0.7 % (0.0-1.0); EOS # 0.1 10^3/uL (0.0-0.5); EOS % 1.3 % (0.0-3.0); HEMOGLOBIN 9.6 g/dl (12.0-15.5); LYMPH % 24.8 % (24.0-44.0); MEAN CORPUSCULAR HEMOGLOBIN 28.6 pg (27.0-33.0); MEAN CORPUSCULAR HGB CONC 33.1 g/dl (32.0-36.5); MEAN CORPUSCULAR VOLUME 86.3 fl (80.0-96.0); MONO # 0.4 10^3/uL (0.0-0.8); MONO % 5.3 % (0.0-5.0); NEUTROPHILS # 5.5 10^3/uL (1.5-8.5); NEUTROPHILS % 67.7 % (36.0-66.0); PLATELET COUNT, AUTOMATED 162 10^3/uL (150-450); RED BLOOD COUNT 3.36 10^6/uL (4.00-5.40); WHITE BLOOD COUNT 8.2 10^3/uL (4.0-10.0)
[2019-10-21 15:54] LABS: ALBUMIN 3.7 GM/DL (3.2-5.2); ALT/SGPT 16 U/L (12-78); BILIRUBIN,DIRECT < 0.1 MG/DL (0.0-0.2); BILIRUBIN,TOTAL 0.3 MG/DL (0.2-1.0); LIPASE 154 U/L (73-393); TOTAL PROTEIN 7.6 GM/DL (6.4-8.2)
[2019-10-21] MEDS ORDERED: ACETAMINOPHEN 500 MG TAB PO ONE (16:45)
[2019-10-21] MEDS ORDERED: METOCLOPRAMIDE INJ 10MG/2ML VIAL (J2765 PER 1) IV ONE (16:45)
[2019-10-21] MEDS ORDERED: ONDANSETRON 4MG/2ML VIAL IV ONE (17:45)
[2019-10-21] MEDS ORDERED: ISOVUE-370 76% 100ML VIAL As Ordered ONE (17:47)
[2019-10-21] MEDS ORDERED: DEXTROSE 50% 50 ML SYRINGE IV PRN (20:15)
[2019-10-21] MEDS ORDERED: ACETAMINOPHEN TAB 650MG DOSE (2X325MG) PO PRN (20:15)
[2019-10-21] MEDS ORDERED: GLUCOSE 4GM CHEW TABLET PO PRN (20:15)
[2019-10-21] MEDS ORDERED: GLUCAGON INJ 1MG VIAL SC PRN (20:15)
[2019-10-21] MEDS ORDERED: METOCLOPRAMIDE INJ 10MG/2ML VIAL (J2765 PER 1) IV PRN (20:30)
--- NOTE | 2019-10-21 20:38 | HPEPDOC ---
General Date of Admission Oct 21, 2019 at 13:20 Date of Service: Oct 21, 2019 Chief Complaint The patient is a 49-year-old female who presented to the hospital with complaints of nausea and vomiting History of Present Illness Patient is a 49-year-old Afro-Bermudian female with a PMHx of IDDM1, CKD3, Prior suspicion for gastroparesis (last gastric emptying study noted in [facility] in 2008 - normal, last EGD in [address] Patricia manning) who presented to the hospital because of nausea and vomiting. Patient is a multiple admissions for DKA, most recent of which was 10/12 to 10/14. Patient reported that yesterday morning. She will up with nausea and vomiting that occurred throughout the day. Denied any blood in her vomitus. Patient reports some associated heartburn-like symptoms. Denies any definitive abdominal pain, constipation, diarrhea, or urinary discomfort. Patient denies any chest pain, shortness of breath or cough. She denies any fevers, but has reported some chills. Patient reports that prior to all that she has been having a normal appetite. Patient reports that she has been compliant with medications. Home Medications Scheduled Insulin NPH Hum/Reg Insulin Hm (Novolin 70-30 100 Unit/ml Vial) 100 Unit/1 Ml Vial, 1 DOSE SC BID, (Reported) PER SLIDING SCALE Multivitamin/Folic Acid/Biotin (Hair, Skin and Nails Tablet) 1 Each Tablet, 1 TAB PO DAILY, (Reported) Allergies Coded Allergies: No Known Allergies (Verified , 06/03/19) Past Medical History Medical History IDDM1, CKD3, Prior suspicion for gastroparesis (last gastric emptying study noted in [facility] in 2008 - normal, last EGD in [address] Patricia manning) Surgical History Dilation and curettage 2003 Family History - Mother with a history of diabetes and father without any medical problems Social History - Denies the use of alcohol or illicit drugs; patient reports that she quit smoking in April - Denies recent travel or sick contacts - Lives with children - Occupation; lost her job at [employer] because of COVID Review of Systems Other systems 10 point review of systems complete, all negative otherwise stated in HPI Vital Signs - Vitals: BP [159/78], HR [102], RR [20], Sat [100%RA], Temp [97.4F] - General: Lying in bed, Appears to be uncomfortable, AAOx3 - HEENT: NC, AT, PERRLA - CVS: Tachycardic, +S1S2 - Lungs: Fair air entry bilaterally, NO appreciable wheezing / rales / rhonchi - Abdomen: Soft, Non-distended, Epigastric tenderness - Extremities: No lower extremity edema, No calf tenderness - Neuro: No focal motor or sensory deficit - Skin: No visible rashes Laboratory Data Labs 24H Laboratory Tests 2 10/21/19 13:28: Bedside Glucose (Misc Panel) 79 10/21/19 14:09: Bedside Glucose (Misc Panel) 56L 10/21/19 14:25: Bedside Glucose (Misc Panel) 63L 10/21/19 15:00: Bedside Glucose (Misc Panel) 63L 10/21/19 15:16: Immature Granulocyte % (Auto) 0.2, Neutrophils (%) (Auto) 67.7H, Lymphocytes (%) (Auto) 24.8, Monocytes (%) (Auto) 5.3H, Eosinophils (%) (Auto) 1.3, Basophils (%) (Auto) 0.7, Neutrophils # (Auto) 5.5, Lymphocytes # (Auto) 2.0, Monocytes # (Auto) 0.4, Eosinophils # (Auto) 0.1, Basophils # (Auto) 0.1, Nucleated Red Blood Cells % (auto) 0.0, Blood Gas Bicarbonate Standard 20.8, Venous Blood pH 7.380, Venous Blood Partial Pressure CO2 34.8L, Venous Blood Partial Pressure O2 110.6H, Venous Blood Total Carbon Dioxide 21.2L, Venous Blood HCO3 20.1L, Venous Blood Oxygen Saturation 98.1H, Venous Blood Base Excess -4.4L, Total Bilirubin 0.3, Direct Bilirubin < 0.1, Aspartate Amino Transf (AST/SGOT) 15, Alanine Aminotransferase (ALT/SGPT) 16, Alkaline Phosphatase 61, Total Protein 7.6, Albumin 3.7, Albumin/Globulin Ratio 0.9L, Lipase 154 10/21/19 15:19: POC Glucose (Misc Panel) 105, POC Sodium (Misc Panel) 139, POC Potassium (Misc Panel) 3.4L, POC Chloride (Misc Panel) 109, POC Total CO2 (Misc Panel) 19.0L, POC Blood Urea Nitrogen (Misc Panel 17, POC Ionized Calcium (Misc Panel) 4.5, POC Creatinine (Misc Panel) 1.0, POC Hematocrit (Misc Panel) 31.0L 10/21/19 15:21: POC Beta HCG, Quantitative < 5.0 10/21/19 16:33: Bedside Glucose (Misc Panel) 93 10/21/19 19:03: Bedside Glucose (Misc Panel) 75 CBC/BMP Laboratory Tests 10/21/19 15:16 Plan / VTE VTE Prophylaxis Ordered?: Yes Plan Plan Intractable nausea and vomiting - possibly 2/2 gastroparesis - Patient presented to the emergency room with complaints of nausea and vomiting that started yesterday morning - Patient is clinically stable and afebrile; physical reveals epigastric tenderness - Lipase normal - EKG was reviewed and is consistent with priors on record - Will check troponin - Will check stool for H. pylori antigen / urine toxicology - Will start IV fluid hydration, symptomatic control with Reglan Hypertension - possibly 2/2 nausea and vomiting - No prior history of HTN - Will place patient in PCU, possible need for IV medications if BP remains uncontrolled Hypokalemia - Will supplement IV fluid with potassium CKD3 - Baseline Cr of 1-1.1 - Cr currently at baseline - Will c/w IV fluids given persistent nausea and vomiting IDDM1 - Patient takes a 70/30 mixed insulin at home - However given her poor oral intake currently; will transition to ISS - Will need to start long acting insulin within 24 hours Normocytic anemia - Hg appears to be at baseline Gastrointestinal prophylaxis - Will start Protonix IV DVT prophylaxis - Will start Heparin RAZIA YEPEZ MD Oct 21, 2019 20:38
[2019-10-21 21:43] LABS: CK-MB VALUE MASS < 1.0 NG/ML (<3.6); CPK CREATINE PHOSPHOKINASE 78 U/L (26-192); MB/CK RELATIVE INDEX 1.28 (< OR =4); TROPONIN I < 0.02 NG/ML (< 0.10)
[2019-10-21 23:27] VITALS: BP 164/88
[2019-10-22] MEDS: KCL 40MEQ in NS 1000ML 1,000 ML IV SCH ×3 (00:12→18:01)
[2019-10-22 04:00] VITALS: BP 154/88
[2019-10-22 05:42] LABS: BASO % 0.3 % (0.0-1.0); EOS % 0.1 % (0.0-3.0); HEMOGLOBIN 8.7 g/dl (12.0-15.5); LYMPH # 0.9 10^3/uL (1.5-5.0); LYMPH % 9.8 % (24.0-44.0); MEAN CORPUSCULAR HEMOGLOBIN 28.2 pg (27.0-33.0); MEAN CORPUSCULAR HGB CONC 33.5 g/dl (32.0-36.5); MEAN CORPUSCULAR VOLUME 84.1 fl (80.0-96.0); MONO # 0.4 10^3/uL (0.0-0.8); MONO % 3.9 % (0.0-5.0); NEUTROPHILS # 7.7 10^3/uL (1.5-8.5); NEUTROPHILS % 85.7 % (36.0-66.0); PLATELET COUNT, AUTOMATED 234 10^3/uL (150-450); RED BLOOD COUNT 3.09 10^6/uL (4.00-5.40)
[2019-10-22 06:00] LABS: BLOOD UREA NITROGEN 13 MG/DL (7-18); CALCIUM LEVEL 8.3 MG/DL (8.5-10.1); CARBON DIOXIDE LEVEL 19 MEQ/L (21-32); CHLORIDE LEVEL 106 MEQ/L (98-107); CREATININE FOR GFR 1.01 MG/DL (0.55-1.30); GLOMERULAR FILTRATION RATE > 60.0 (>58); GLUCOSE, FASTING 257 MG/DL (70-100); MAGNESIUM LEVEL 1.5 MG/DL (1.8-2.4); POTASSIUM SERUM 4.5 MEQ/L (3.5-5.1); SODIUM LEVEL 133 MEQ/L (136-145)
[2019-10-22] MEDS: HEPARIN SOD (PORCINE) 5000UNITS/ML 1ML VIAL/SYRINGE SC SCH ×3 (06:19→20:45)
[2019-10-22] MEDS: HumaLOG INSULIN (NovoLOG) PER UNIT SC SCH ×4 (06:20→17:32)
[2019-10-22] MEDS ORDERED: MAG SULF 1GM/100ML (MAG RUN) 1 GM in IV 1 EA IV ONE (06:30)
[2019-10-22 08:00] VITALS: BP 118/73
[2019-10-22] MEDS ORDERED: ONDANSETRON 4MG/2ML VIAL IV PRN (08:30)
[2019-10-22] MEDS ORDERED: PANTOPRAZOLE 40MG VIAL (C9113 PER 1) IV SCH (09:00)
[2019-10-22] MEDS ORDERED: METOCLOPRAMIDE INJ 10MG/2ML VIAL (J2765 PER 1) IV SCH (09:00)
--- NOTE | 2019-10-22 09:43 | ECGEPIP ---
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
[2019-10-22 12:00] VITALS: BP 142/90
[2019-10-22] MEDS: METOCLOPRAMIDE INJ 10MG/2ML VIAL (J2765 PER 1) IV PRN (14:49)
--- NOTE | 2019-10-22 16:08 | IPNPDOC ---
Text Note Date of Service The patient was seen on 10/22/19. NOTE Subjective: This am patient feels better with antiemetics and wants to try some solid food and asking if she could go home. I discussed with her that if she can have 2 meals without nausea/ vomiting then i will discharge her. Her blood pressure is better . Physical Exam: - Vitals: As below - General: Lying in bed, Appears to be uncomfortable, AAOx3 - HEENT: NC, AT, PERRLA - CVS: Normal rate, regular rhythm, +S1S2, no rub, murmur or gallop - Lungs: Fair air entry bilaterally, NO appreciable wheezing / rales / rhonchi - Abdomen: Soft, Non-distended, Epigastric tenderness - Extremities: No lower extremity edema, No calf tenderness - Neuro: No focal motor or sensory deficit - Skin: No visible rashes Labs and Radiology: reviewed. Assessment and Plan: Patient is a 49-year-old Afro-C[place] female with a PMHx of IDDM1, CKD3, Prior suspicion for gastroparesis (last gastric emptying study noted in [facility] in 2008 - normal, last EGD [place] [address] Gomez - nigel) who presented to the hospital because of nausea and vomiting. Patient is a multiple admissions for DKA, most recent of which was 10/12 to 10/14. Labs do not show any DKA this time. Patient was admitted for intractable vomiting possibly related to diabetic gastroparesis. Intractable nausea and vomiting - possibly 2/2 gastroparesis/ reflux esophagitis. EGD in 2013 suggested the above. Will get gastric emptying study on Thursday. Lipase normal Will check stool for H. pylori antigen / urine toxicology IV fluid hydration, symptomatic control with Reglan/ zofran , soft low fat, low residue diet. Hypertension - possibly 2/2 nausea and vomiting No prior history of HTN Hypokalemia supplement IV fluid with potassium Hypomagnesemia replaced CKD3 Baseline Cr of 1-1.1 Cr currently at baseline Will c/w IV fluids given persistent nausea and vomiting IDDM1 Patient takes a 70/30 mixed insulin at home However given her poor oral intake currently will give only lispro as per sliding scale Will need to start long acting insulin within 24 hours Normocytic anemia Hg appears to be at baseline Gastrointestinal prophylaxis Protonix IV DVT prophylaxis Heparin VS,Fishbone, I+O VS, Fishbone, I+O Laboratory Tests 10/21/19 15:16 10/22/19 05:25 Vital Signs Date Time Temp Pulse Resp B/P (MAP) Pulse Ox O2 Delivery O2 Flow Rate FiO2 10/22/19 04:00 99.1 91 18 154/88 (110) 100 Room Air I&O- Last 24 Hours up to 6 AM 10/22/19 06:00 Intake Total 2000 ml Output Total 400 ml Balance 1600 ml CECILY LOPES MD Oct 22, 2019 08:27
[2019-10-22 17:45] VITALS: BP 185/99
[2019-10-22] MEDS ORDERED: KETOROLAC 30 MG/ML 1ML VIAL IV ONE (18:00)
[2019-10-22] MEDS: PANTOPRAZOLE 40MG VIAL (C9113 PER 1) IV SCH (20:45)
[2019-10-22] MEDS ORDERED: HumaLOG INSULIN (NovoLOG) PER UNIT SC SCH (21:00)
[2019-10-22 22:00] VITALS: BP_SYST 102; BP_SYST 121; BP_DIAS 62; BP_DIAS 77
[2019-10-23] MEDS: KCL 40MEQ in NS 1000ML 1,000 ML IV SCH (05:16)
[2019-10-23] MEDS: HEPARIN SOD (PORCINE) 5000UNITS/ML 1ML VIAL/SYRINGE SC SCH ×2 (05:16→13:21)
[2019-10-23 06:00] VITALS: BP 119/75
[2019-10-23] MEDS ORDERED: KETOROLAC 30 MG/ML 1ML VIAL IV ONE (06:00)
[2019-10-23] MEDS: METOCLOPRAMIDE INJ 10MG/2ML VIAL (J2765 PER 1) IV PRN (06:50)
[2019-10-23 07:15] LABS: BASO # 0.1 10^3/uL (0.0-0.2); BASO % 0.6 % (0.0-1.0); EOS # 0.2 10^3/uL (0.0-0.5); EOS % 1.9 % (0.0-3.0); HEMATOCRIT 27.7 % (36.0-47.0); HEMOGLOBIN 9.1 g/dl (12.0-15.5); MEAN CORPUSCULAR HGB CONC 32.9 g/dl (32.0-36.5); MEAN CORPUSCULAR VOLUME 85.2 fl (80.0-96.0); MONO # 0.6 10^3/uL (0.0-0.8); MONO % 7.5 % (0.0-5.0); NEUTROPHILS # 5.4 10^3/uL (1.5-8.5); NEUTROPHILS % 65.5 % (36.0-66.0); PLATELET COUNT, AUTOMATED 279 10^3/uL (150-450); RED BLOOD COUNT 3.25 10^6/uL (4.00-5.40); WHITE BLOOD COUNT 8.3 10^3/uL (4.0-10.0)
[2019-10-23 07:38] LABS: CALCIUM LEVEL 8.8 MG/DL (8.5-10.1); CREATININE FOR GFR 1.28 MG/DL (0.55-1.30); GLOMERULAR FILTRATION RATE 57.7 (>58); MAGNESIUM LEVEL 1.9 MG/DL (1.8-2.4); POTASSIUM SERUM 4.9 MEQ/L (3.5-5.1)
[2019-10-23] MEDS ORDERED: HumaLOG INSULIN (NovoLOG) PER UNIT SC STA (07:49)
[2019-10-23] MEDS ORDERED: LEVEMIR (INSULIN DETEMIR) 1 UNITS/0.01ML SC SCH (08:00)
[2019-10-23] MEDS: PANTOPRAZOLE 40MG VIAL (C9113 PER 1) IV SCH (08:20)
[2019-10-23] MEDS: HumaLOG INSULIN (NovoLOG) PER UNIT SC SCH ×3 (08:21→17:22)
[2019-10-23] MEDS ORDERED: MORPHINE 4 MG/ML 1ML VIAL/SYRINGE (J2270) IV ONE (08:30)
[2019-10-23] MEDS ORDERED: NS 1,000 ML IV ONE (09:00)
--- NOTE | 2019-10-23 12:17 | IPNPDOC ---
Text Note Date of Service The patient was seen on 10/23/19. NOTE Subjective: Patient complains of severe abdominal pain and nausea this morning. Unable to take po diet. Labs show downtrending of Bicarb and increasing AG. May be starting to go into DKA will give lispro stat and Levemir stat. [id number] bolus. Physical Exam: - Vitals: As below - General: Lying in bed, Appears to be uncomfortable, AAOx3 - HEENT: NC, AT, PERRLA - CVS: Normal rate, regular rhythm, +S1S2, no rub, murmur or gallop - Lungs: Fair air entry bilaterally, NO appreciable wheezing / rales / rhonchi - Abdomen: Soft, Non-distended, Epigastric tenderness - Extremities: No lower extremity edema, No calf tenderness - Neuro: No focal motor or sensory deficit - Skin: No visible rashes Labs and Radiology: reviewed. Assessment and Plan: Patient is a 49-year-old Afro-Niuean female with a PMHx of IDDM1, CKD3, Prior suspicion for gastroparesis (last gastric emptying study noted in [facility] in 2008 - normal, last EGD [place] [address] Gomez - nigel) who presented to the hospital because of nausea and vomiting. Patient is a multiple admissions for DKA, most recent of which was 10/12 to 10/14. Labs do not show any DKA this time. Patient was admitted for intractable vomiting possibly related to diabetic gastroparesis. Intractable nausea and vomiting - possibly 2/2 gastroparesis/ reflux esophagitis. EGD in 2013 suggested the above. Will get gastric emptying study on Thursday. Lipase normal Will check stool for H. pylori antigen / urine toxicology IV fluid hydration, symptomatic control with Reglan/ zofran , soft low fat, low residue diet. IV morphine for pain control Hypertension - possibly 2/2 nausea and vomiting No prior history of HTN Hypokalemia supplement IV fluid with potassium Hypomagnesemia replaced CKD3 Baseline Cr of 1-1.1 Cr currently at baseline Will c/w IV fluids given persistent nausea and vomiting IDDM1 Patient takes a 70/30 mixed insulin at home May be starting to go into DKA. will give levemir and lispro stat and check Basic in 4 hours. IVF bolus. Normocytic anemia Hg appears to be at baseline Gastrointestinal prophylaxis Protonix IV DVT prophylaxis Heparin VS,Fishbone, I+O VS, Fishbone, I+O Laboratory Tests 10/23/19 06:41 Vital Signs Date Time Temp Pulse Resp B/P (MAP) Pulse Ox O2 Delivery O2 Flow Rate FiO2 10/23/19 08:22 20 10/23/19 06:00 98.5 88 119/75 (90) 100 Room Air I&O- Last 24 Hours up to 6 AM 10/23/19 06:00 Intake Total 1590 ml Output Total 600 ml Balance 990 ml Discharge Summary General Date of Admission Oct 21, 2019 at 13:20 Date of Discharge 10/23/19 Discharge Summary PROCEDURES PERFORMED DURING STAY: [None]. DISCHARGE DIAGNOSES: Possible Gastroparesis flare causing intractable nausea and vomiting. Early DKA resolved Type 1 Diabetes. Hypokalemia Hypomagnesemia CKD 3 Normocytic anemia COMPLICATIONS/CHIEF COMPLAINT: Intractable Vomiting. HOSPITAL COURSE: Patient is a 49-year-old Afro-Niuean female with a PMHx of IDDM1, CKD3, Prior suspicion for gastroparesis (last gastric emptying study noted in [facility] in 2008 - nigel, last EGD in [address] Gomez - nigel) who presented to the hospital because of intractable nausea and vomiting. Patient is a multiple admissions for DKA, most recent of which was 10/12 to 10/14. Labs on admission did not show DKA this time. Patient was admitted for intractable vomiting possibly related to diabetic gastroparesis. However she had persistent nausea and vomiting and labs on day 2 of admission showed early DKA . She was given IV bolus , Levemir and lispro insulin immediately . Labs 4 hours later showed DKA has resolved. She was still not able to tolerate much food through out the day so she was scheduled for a gastric emptying study on 10/24/19. However patient pulled out her IV and signed out AMA on 10/23/19. DISCHARGE MEDICATIONS: Please see below. ALLERGIES: Please see below. PHYSICAL EXAMINATION ON DISCHARGE: VITAL SIGNS: Please see below. As above. LABORATORY DATA: Please see below. ACTIVITY: [As tolerated]. DIET: Carb consistent. DISPOSITION: Against Medical Advice. DISCHARGE INSTRUCTIONS: Follow up with PMD DISCHARGE CONDITION: [Stable]. TIME SPENT ON DISCHARGE: 31 minutes. Vital Signs/I&Os Vital Signs Date Time Temp Pulse Resp B/P (MAP) Pulse Ox O2 Delivery O2 Flow Rate FiO2 10/23/19 14:00 98.2 90 18 120/75 (90) 100 Room Air I&O- Last 24 Hours up to 6 AM 10/24/19 06:00 Intake Total 1480 ml Balance 1480 ml Laboratory Data Labs 24H Laboratory Tests 2 10/23/19 09:06: Bedside Glucose (Misc Panel) 241H 10/23/19 10:31: Bedside Glucose (Misc Panel) 162H 10/23/19 11:24: Bedside Glucose (Misc Panel) 104 10/23/19 11:54: Anion Gap 5L, Glomerular Filtration Rate > 60.0, Calcium Level 8.2L 10/23/19 13:20: Bedside Glucose (Misc Panel) 49L 10/23/19 13:56: Bedside Glucose (Misc Panel) 52L 10/23/19 16:57: Bedside Glucose (Misc Panel) 164H CBC/BMP Laboratory Tests 10/23/19 11:54 FSBS Laboratory Tests Test 10/23/19 09:06 10/23/19 10:31 10/23/19 11:24 10/23/19 13:20 Range/Units Bedside Glucose (Misc Panel) 241 162 104 49 70-105 MG/DL Test 10/23/19 13:56 10/23/19 16:57 Range/Units Bedside Glucose (Misc Panel) 52 164 70-105 MG/DL Discharge Medications Scheduled Insulin NPH Hum/Reg Insulin Hm (Novolin 70-30 100 Unit/ml Vial) 100 Unit/1 Ml Vial, 1 DOSE SC BID, (Reported) PER SLIDING SCALE Multivitamin/Folic Acid/Biotin (Hair, Skin and Nails Tablet) 1 Each Tablet, 1 TAB PO DAILY, (Reported) Allergies Coded Allergies: No Known Allergies (Verified , 06/03/19) CECILY LOPES MD Oct 23, 2019 08:36
[2019-10-23] MEDS ORDERED: MORPHINE 4 MG/ML 1ML VIAL/SYRINGE (J2270) IV PRN (12:30)
[2019-10-23 12:56] LABS: BLOOD UREA NITROGEN 19 MG/DL (7-18); CALCIUM LEVEL 8.2 MG/DL (8.5-10.1); CARBON DIOXIDE LEVEL 18 MEQ/L (21-32); CHLORIDE LEVEL 114 MEQ/L (98-107); CREATININE FOR GFR 1.19 MG/DL (0.55-1.30); GLOMERULAR FILTRATION RATE > 60.0 (>58); GLUCOSE, FASTING 97 MG/DL (70-100); POTASSIUM SERUM 4.7 MEQ/L (3.5-5.1); SODIUM LEVEL 137 MEQ/L (136-145)
[2019-10-23 14:00] VITALS: BP 120/75
[2019-10-24] MEDS ORDERED: LEVEMIR (INSULIN DETEMIR) 1 UNITS/0.01ML SC SCH (09:00)
== END 2019-10-23 19:49 | disposition left against medical advice (07) ==
LOC: M ED 13:19 → M ED INP 13:20 → ENRESERV 22:06 → M PCU 23:28 → M MSPAV 10-22 17:43
PROVIDERS: ADMIT Internal Medicine; ATTEND Internal Medicine Nephrology
DX: E10.10 Type 1 diabetes mellitus with ketoacidosis without coma (principal); R11.2 Nausea with vomiting, unspecified; R03.0 Elevated blood-pressure reading, without diagnosis of hypertension; E87.6 Hypokalemia; E83.42 Hypomagnesemia; N18.3 Chronic kidney disease, stage 3 (moderate); E10.649 Type 1 diabetes mellitus with hypoglycemia without coma; D64.9 Anemia, unspecified; R10.9 Unspecified abdominal pain; R68.83 Chills (without fever); Z79.899 Other long term (current) drug therapy; Z87.891 Personal history of nicotine dependence; Z86.39 Personal history of other endocrine, nutritional and metabolic disease
CPT/HCPCS: 36415; 80047; 80048; 80076; 82550; 82553; 82803; 83605; 83690; 83735; 84145; 84702; 85025; 93005; 96361; 96372; 96374; 96375; 96376; 99284; C9113; J1644; J1885; J2270; J2405; J2765; J3475

== ENCOUNTER 2019-11-26 19:35 | Emergency (ER) | payer OTHER ==
[~2019-11-26] VITALS: Ht 170.2 cm; Wt 74.2 kg
[2019-11-26 19:36] VITALS: BP 147/90
[2019-11-26] MEDS ORDERED: MOTR200T44 PO (19:40)
[2019-11-26] MEDS ORDERED: PENI500T PO (19:58)
[2019-11-26] MEDS ORDERED: ACETAMINOPHEN 500 MG TAB PO ONE (20:00)
[2019-11-26] MEDS ORDERED: PENICILLIN V POTASSIUM 500 MG TAB PO ONE (20:00)
[2019-11-26] MEDS ORDERED: BENZOCAINE 20% GEL 9GM TUBE (ANBESOL MAX STRENGTH) TOP ONE (20:00)
== END 2019-11-26 20:28 | disposition home or self-care (01) ==
LOC: M ED 19:35
DX: K04.7 Periapical abscess without sinus (principal); K02.9 Dental caries, unspecified; E11.9 Type 2 diabetes mellitus without complications; Z79.899 Other long term (current) drug therapy; Z79.1 Long term (current) use of non-steroidal anti-inflammatories (NSAID)

== ENCOUNTER 2019-11-30 15:51 | Emergency (ER) | payer OTHER ==
[~2019-11-30] VITALS: Ht 170.2 cm; Wt 71.4 kg
[~2019-11-30 15:51] MED LIST changes: +MOTR200T44 PO; +PENI500T PO
[2019-11-30 17:13] LABS: VENOUS BASE EXCESS -5.8 (-2.0-2.0); VENOUS HCO3 17.7 MEQ/L (23.0-27.0); VENOUS PARTIAL PRESSURE CO2 28.6 mmHg (38.0-50.0); VENOUS PARTIAL PRESSURE O2 52.3 mmHg (30.0-50.0); VENOUS PH 7.409 UNITS (7.330-7.430); VENOUS STANDARD HCO3 19.5 MEQ/L; VENOUS TOTAL CO2 18.6 MEQ/L (24.0-28.0)
[2019-11-30 17:14] LABS: VENOUS O2 SATURATION 85.8 % (60.0-80.0)
[2019-11-30] MEDS ORDERED: HALOPERIDOL 5MG/ML VIAL (J1630 PER 1) IV ONE (17:15)
[2019-11-30 17:21] LABS: BASO # 0.1 10^3/uL (0.0-0.2); BASO % 0.5 % (0.0-1.0); EOS % 0.2 % (0.0-3.0); HEMATOCRIT 31.4 % (36.0-47.0); HEMOGLOBIN 10.6 g/dl (12.0-15.5); LYMPH # 1.2 10^3/uL (1.5-5.0); LYMPH % 11.6 % (24.0-44.0); MEAN CORPUSCULAR HEMOGLOBIN 28.6 pg (27.0-33.0); MEAN CORPUSCULAR HGB CONC 33.8 g/dl (32.0-36.5); MEAN CORPUSCULAR VOLUME 84.6 fl (80.0-96.0); MONO # 0.3 10^3/uL (0.0-0.8); MONO % 2.5 % (0.0-5.0); NEUTROPHILS # 8.5 10^3/uL (1.5-8.5); NEUTROPHILS % 84.9 % (36.0-66.0); PLATELET COUNT, AUTOMATED 319 10^3/uL (150-450); RED BLOOD COUNT 3.71 10^6/uL (4.00-5.40)
[2019-11-30 17:45] LABS: AMPHETAMINES LEVEL URINE NEGATIVE (NEGATIVE); BARBITURATES URINE NEGATIVE (NEGATIVE); BENZODIAZEPINES URINE NEGATIVE (NEGATIVE); CANNABINOIDS URINE POSITIVE (NEGATIVE); COCAINE METABOLITE URINE NEGATIVE (NEGATIVE); METHADONE URINE NEGATIVE (NEGATIVE); OPIATES URINE NEGATIVE (NEGATIVE); PHENCYCLIDINE URINE NEGATIVE (NEGATIVE)
[2019-11-30 17:47] LABS: ACETONE/KETONE 25.64 MG/DL (<2.81); CREATININE FOR GFR 1.43 MG/DL (0.55-1.30); GLOMERULAR FILTRATION RATE 50.7 (>58); POTASSIUM SERUM 4.1 MEQ/L (3.5-5.1)
[2019-11-30] MEDS ORDERED: METOCLOPRAMIDE INJ 10MG/2ML VIAL (J2765 PER 1) IV ONE (18:30)
[2019-11-30] MEDS ORDERED: NS 1,000 ML IV ONE ×2 (19:00→20:15)
[2019-11-30] MEDS ORDERED: HumuLIN R (REGULAR) INSULIN (NovoLIN R) **100U/ML** PER UNIT SC ONE (20:15)
[2019-11-30] MEDS ORDERED: ONDANSETRON 4MG/2ML VIAL IV ONE (20:45)
[2019-11-30 21:07] VITALS: BP 136/74
== END 2019-11-30 21:28 | disposition home or self-care (01) ==
LOC: M ED 15:51 → EDBD 15:51 → M ED 21:28
DX: E10.65 Type 1 diabetes mellitus with hyperglycemia (principal); T40.7X1A Poisoning by cannabis (derivatives), accidental (unintentional), initial encounter; R11.2 Nausea with vomiting, unspecified; Z86.39 Personal history of other endocrine, nutritional and metabolic disease; Z79.899 Other long term (current) drug therapy; Z79.2 Long term (current) use of antibiotics
CPT/HCPCS: 80048; 80307; 82010; 82803; 83605; 85025; 96361; 96374; 96375; 99284; J1630; J2405; J2765

== ENCOUNTER 2020-02-17 12:46 | Inpatient (IN) | payer OTHER ==
[~2020-02-17] VITALS: Ht 170.2 cm; Wt 71.4 kg
[2020-02-17 13:37] LABS: VENOUS BASE EXCESS -6.8 (-2.0-2.0); VENOUS HCO3 17.3 MEQ/L (23.0-27.0); VENOUS PARTIAL PRESSURE CO2 30.6 mmHg (38.0-50.0); VENOUS PARTIAL PRESSURE O2 83.8 mmHg (30.0-50.0); VENOUS PH 7.371 UNITS (7.330-7.430); VENOUS STANDARD HCO3 18.9 MEQ/L; VENOUS TOTAL CO2 18.3 MEQ/L (24.0-28.0)
[2020-02-17 13:38] LABS: BASO # 0.1 10^3/uL (0.0-0.2); BASO % 0.5 % (0.0-1.0); EOS % 0.1 % (0.0-3.0); HEMATOCRIT 33.8 % (36.0-47.0); LYMPH # 1.4 10^3/uL (1.5-5.0); LYMPH % 14.8 % (24.0-44.0); MEAN CORPUSCULAR HEMOGLOBIN 27.6 pg (27.0-33.0); MEAN CORPUSCULAR HGB CONC 32.5 g/dl (32.0-36.5); MEAN CORPUSCULAR VOLUME 84.9 fl (80.0-96.0); MONO # 0.6 10^3/uL (0.0-0.8); MONO % 6.1 % (0.0-5.0); NEUTROPHILS # 7.5 10^3/uL (1.5-8.5); NEUTROPHILS % 78.2 % (36.0-66.0); PLATELET COUNT, AUTOMATED 333 10^3/uL (150-450); RED BLOOD COUNT 3.98 10^6/uL (4.00-5.40); WHITE BLOOD COUNT 9.6 10^3/uL (4.0-10.0)
[2020-02-17] MEDS: NS 1,000 ML IV SCH ×2 (13:40→14:33)
[2020-02-17] MEDS ORDERED: ONDANSETRON 4MG/2ML VIAL IV ONE (13:45)
[2020-02-17 14:01] LABS: HEMOGLOBIN A1c 8.5 %
--- NOTE | 2020-02-17 15:07 | REP ---
INDICATION: weakness. COMPARISON: October 13, 2019. TECHNIQUE: Sitting AP portable radiograph. FINDINGS: Monitoring electrodes overlie the chest. The lungs are well inflated and clear. Heart size is normal. Pulmonary vasculature is not increased. No significant bony abnormality. IMPRESSION: Negative portable chest x-ray. <Electronically signed by Ari Weaver > 02/17/20 [id number]
--- NOTE | 2020-02-17 15:49 | REP ---
INDICATION: abd pain, vomiting COMPARISON: September 01, 2019.. TECHNIQUE: Helical scanning is acquired in 4 mm axial images were reformatted. Coronal and sagittal MPR images were generated and reviewed. FINDINGS: Digital preliminary line service technician radiograph is unremarkable. Axial CT images demonstrate that the lung bases are clear. The liver and the spleen are normal in size homogeneous in texture. Normal adrenal glands are observed bilaterally. No abnormality is noted in the pancreas. There is a calcific density in the region of the gallbladder neck. This is likely cholelithiasis. No hydronephrosis is seen. The kidneys are morphologically intact. No stone is seen. Small and large bowel loops are normal in the upper abdomen. No retroperitoneal mass or adenopathy is seen. No abdominal wall defect is observed. A normal appendix is noted right lower quadrant. Pelvic CT images demonstrate minimal fluid in the cul-de-sac. No uterine or ovarian mass lesion is seen. Urinary bladder is unremarkable. There is a phlebolith along the posterior wall of the bladder and several other phleboliths are noted in the right lower quadrant. No bladder calculus or ureteral stone is seen. No ovarian abnormality is observed. Bone window settings show no bony destructive lesion. IMPRESSION: Normal appendix seen. There is a small calcification in the region the gallbladder neck probable cholelithiasis. Minimal cul-de-sac fluid question physiologic. Otherwise negative CT abdomen and pelvis. <Electronically signed by Ari Weaver > 02/17/20 [id number]
[2020-02-17 17:13] LABS: OSMOLALITY SERUM 311 MOSM/KG (275-295)
[2020-02-17 17:37] LABS: ACETONE/KETONE > 46.00 MG/DL (<2.81); ALBUMIN 4.3 GM/DL (3.2-5.2); ALT/SGPT 18 U/L (12-78); BILIRUBIN,DIRECT 0.2 MG/DL (0.0-0.2); BLOOD UREA NITROGEN 49 MG/DL (7-18); CALCIUM LEVEL 9.5 MG/DL (8.5-10.1); CARBON DIOXIDE LEVEL 17 MEQ/L (21-32); CHLORIDE LEVEL 95 MEQ/L (98-107); CREATININE FOR GFR 1.73 MG/DL (0.55-1.30); GLOMERULAR FILTRATION RATE 40.7 (>58); GLUCOSE, FASTING 337 MG/DL (70-100); LIPASE 68 U/L (73-393); POTASSIUM SERUM 4.1 MEQ/L (3.5-5.1); SODIUM LEVEL 132 MEQ/L (136-145); TOTAL PROTEIN 8.2 GM/DL (6.4-8.2)
[2020-02-17] MEDS ORDERED: INSULIN REGULAR IN 0.9 % NACL 100 UNIT in IV 1 EA IV SCH ×2 (18:25)
[2020-02-17] MEDS ORDERED: NS 1,000 ML IV SCH (18:25)
[2020-02-17] MEDS ORDERED: DEXTROSE 50% 50 ML SYRINGE IV PRN (19:00)
[2020-02-17] MEDS ORDERED: GLUCOSE 4GM CHEW TABLET PO PRN (19:00)
[2020-02-17] MEDS ORDERED: GLUCAGON INJ 1MG VIAL SC PRN (19:00)
--- NOTE | 2020-02-17 19:13 | HPEPDOC ---
General Date of Admission Feb 17, 2020 at 18:25 Date of Service: Feb 17, 2020 Chief Complaint The patient is a 49-year-old female admitted with a reason for visit of DKA. Source: Patient History of Present Illness Mrs. Parks is a 49 year old female with type 1 DM who is here for DKA. Prior to 3 days ago, she was at normal health. Denies changes in medication or what she ate. Denies sick contacts or travel. Then 3 days ago, she started to have N/V with generalized weakness. She does not know what precipitated the DKA, but she could feel that it was beginning. Denies any fever, chest pain, or dyspnea. She N/V, abdominal pain, and poor appetite. Home Medications Scheduled Insulin NPH Hum/Reg Insulin Hm (Novolin 70-30 100 Unit/ml Vial) 100 Unit/1 Ml Vial, 1 DOSE SC BID, (Reported) PER SLIDING SCALE Allergies Coded Allergies: No Known Allergies (Verified , 11/30/19) Past Medical History Medical History 1. Type 1 DM 2. CKD stage 3 3. Suspicion for gastroparesis Surgical History 1. D&C 2003 Family History Father: no known problems Mother: diabetes Social History * Smoker: former Smoker (quit 1 year ago, smoked for about 7 to 8 years, about 1/2 ppd) Alcohol: Denies Drugs: denies A-FIB/CHADSVASC A-FIB History Current/History of A-Fib/PAF?: No Review of Systems Constitutional: Denies: Chills, Fever Eyes: Denies: Pain ENT: Denies: Sore Throat Skin: Denies: Rash Pulmonary: Denies: Dyspnea, Cough Cardiovascular: Denies: Chest Pain Gastrointestinal: Reports: Nausea, Abdominal Pain Genitourinary: Denies: Dysuria Hematologic: Denies: Bruising Endocrine: Denies: Polydipsia, Polyphagia, Polyuria Physical Examination General Exam: Positive: Other (Drowsy) Eye Exam: Positive: EOMI; Negative: Sclera icteric ENT Exam: Positive: Atraumatic, Tongue Midline; Negative: Mucous membr. moist/pink Neck Exam: Negative: thyromegaly Chest Exam: Positive: Clear to auscultation Heart Exam: Positive: Rate Normal, Regular Rhythm Abdomen Exam: Positive: Normal bowel sounds, Soft, Tenderness Extremity Exam: Negative: Edema Neuro Exam: Positive: Cranial Nerves 3-12 NL Psych Exam: Positive: Mood NL Vital Signs Vital Signs Date Time Temp Pulse Resp B/P (MAP) Pulse Ox O2 Delivery O2 Flow Rate FiO2 02/17/20 18:16 84 100 02/17/20 14:15 120/77 (91) 02/17/20 12:47 97.5 28 Room Air Laboratory Data Labs 24H Laboratory Tests 2 02/17/20 13:22: POC Glucose (Misc Panel) 359H, POC Sodium (Misc Panel) 127L, POC Potassium (Misc Panel) 7.8*H, POC Chloride (Misc Panel) 96L, POC Total CO2 (Misc Panel) 21.0L, POC Blood Urea Nitrogen (Misc Panel 70H, POC Ionized Calcium (Misc Panel) 3.8L, POC Creatinine (Misc Panel) 1.6H, POC Hematocrit (Misc Panel) 37.0L 02/17/20 13:25: Immature Granulocyte % (Auto) 0.3, Neutrophils (%) (Auto) 78.2H, Lymphocytes (%) (Auto) 14.8L, Monocytes (%) (Auto) 6.1H, Eosinophils (%) (Auto) 0.1, Basophils (%) (Auto) 0.5, Neutrophils # (Auto) 7.5, Lymphocytes # (Auto) 1.4L, Monocytes # (Auto) 0.6, Eosinophils # (Auto) 0.0, Basophils # (Auto) 0.1, Nucleated Red Blood Cells % (auto) 0.0, Blood Gas Bicarbonate Standard 18.9, Venous Blood pH 7.371, Venous Blood Partial Pressure CO2 30.6L, Venous Blood Partial Pressure O2 83.8H, Venous Blood Total Carbon Dioxide 18.3L, Venous Blood HCO3 17.3L, Venous Blood Oxygen Saturation 96.0H, Venous Blood Base Excess -6.8L, Estimated Mean Plasma Glucose 197H, Hemoglobin A1c 8.5 02/17/20 13:36: Coronavirus (COVID-19)(PCR) NEGATIVE 02/17/20 16:21: Anion Gap 20H, Glomerular Filtration Rate 40.7L, Osmolality 311H, Calcium Level 9.5, Total Bilirubin 1.0, Direct Bilirubin 0.2, Aspartate Amino Transf (AST/SGOT) 22, Alanine Aminotransferase (ALT/SGPT) 18, Alkaline Phosphatase 79, Total Protein 8.2, Albumin 4.3, Albumin/Globulin Ratio 1.1L, Lipase 68L, B- Hydroxybutyrate > 46.00H CBC/BMP Laboratory Tests 02/17/20 13:25 02/17/20 16:21 Assessment/Plan Mrs. Parks is a 49 year old female with type 1 DM who is here for DKA and JENNY. She appears dry. will give her hydration and start the DKA protocol with insulin drip. Plan / VTE VTE Prophylaxis Ordered?: Yes Plan Plan 1. DKA -High anion gap metabolic acidosis, positive for ketones -IV hydration and insulin drip -Frequent blood glucose checks and BMP -Zofran for nausea -Unclear etiology, CXR and CT abd/pelvis negative, no fever or leukocytosis 2. JENNY -Baseline creatine around 1.2 -Current creatinine 1.7 -Secondary to pre-renal -IV hydration 3. Type 1 DM -When she is able to eat, will restart home insulin regimen 4. DVT ppx -Heparin ATILIO SALAZAR DO Feb 17, 2020 19:13
--- NOTE | 2020-02-17 19:28 | ECGEPIP ---
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
[2020-02-17] MEDS: ONDANSETRON 4MG/2ML VIAL IV PRN (19:37)
[2020-02-17 19:45] LABS: CALCIUM LEVEL 8.9 MG/DL (8.5-10.1); CREATININE FOR GFR 1.77 MG/DL (0.55-1.30); GLOMERULAR FILTRATION RATE 39.7 (>58); PHOSPHORUS LEVEL 4.4 MG/DL (2.5-4.9); POTASSIUM SERUM 3.9 MEQ/L (3.5-5.1)
[2020-02-17 21:08] LABS: CALCIUM LEVEL 8.9 MG/DL (8.5-10.1); CREATININE FOR GFR 1.81 MG/DL (0.55-1.30); GLOMERULAR FILTRATION RATE 38.7 (>58); PHOSPHORUS LEVEL 4.3 MG/DL (2.5-4.9); POTASSIUM SERUM 3.5 MEQ/L (3.5-5.1)
[2020-02-17] MEDS: INSULIN IV RATE CHANGE DOCUMENTATION ML/HR XX SCH (22:05)
[2020-02-17 22:25] VITALS: BP 94/66
[2020-02-17] MEDS: KCL 20MEQ IN D5/NS 1000ML 1,000 ML IV SCH (22:36)
[2020-02-17] MEDS: HEPARIN SOD (PORCINE) 5000UNITS/ML 1ML VIAL/SYRINGE SC SCH (22:36)
[2020-02-18] VITALS: BP 123/71
[2020-02-18] MEDS: INSULIN IV RATE CHANGE DOCUMENTATION ML/HR XX SCH ×4 (00:10→08:07)
[2020-02-18] MEDS: KCL 20MEQ IN D5/NS 1000ML 1,000 ML IV SCH ×2 (02:19→07:57)
[2020-02-18 03:08] LABS: CALCIUM LEVEL 8.2 MG/DL (8.5-10.1); CREATININE FOR GFR 1.64 MG/DL (0.55-1.30); GLOMERULAR FILTRATION RATE 43.3 (>58); PHOSPHORUS LEVEL 2.1 MG/DL (2.5-4.9); POTASSIUM SERUM 3.7 MEQ/L (3.5-5.1)
[2020-02-18 04:00] VITALS: BP 99/56
[2020-02-18 07:05] LABS: HEMATOCRIT 28.7 % (36.0-47.0); HEMOGLOBIN 9.6 g/dl (12.0-15.5); MEAN CORPUSCULAR HEMOGLOBIN 28.3 pg (27.0-33.0); MEAN CORPUSCULAR HGB CONC 33.4 g/dl (32.0-36.5); MEAN CORPUSCULAR VOLUME 84.7 fl (80.0-96.0); PLATELET COUNT, AUTOMATED 300 10^3/uL (150-450); RED BLOOD COUNT 3.39 10^6/uL (4.00-5.40); WHITE BLOOD COUNT 6.9 10^3/uL (4.0-10.0)
[2020-02-18 07:19] LABS: CALCIUM LEVEL 8.4 MG/DL (8.5-10.1); CREATININE FOR GFR 1.35 MG/DL (0.55-1.30); GLOMERULAR FILTRATION RATE 54.2 (>58); POTASSIUM SERUM 4.2 MEQ/L (3.5-5.1)
[2020-02-18 07:45] VITALS: BP 105/61
[2020-02-18] MEDS: HEPARIN SOD (PORCINE) 5000UNITS/ML 1ML VIAL/SYRINGE SC SCH ×2 (07:57→20:52)
[2020-02-18] MEDS ORDERED: PANTOPRAZOLE 40MG VIAL (C9113 PER 1) IV SCH (09:00)
[2020-02-18] MEDS: PANTOPRAZOLE 40MG TAB (PROTONIX) PO SCH (09:38)
[2020-02-18 10:57] LABS: CALCIUM LEVEL 8.2 MG/DL (8.5-10.1); CREATININE FOR GFR 1.38 MG/DL (0.55-1.30); GLOMERULAR FILTRATION RATE 52.9 (>58); PHOSPHORUS LEVEL 1.4 MG/DL (2.5-4.9); POTASSIUM SERUM 3.8 MEQ/L (3.5-5.1)
[2020-02-18] MEDS: LEVEMIR (INSULIN DETEMIR) 1 UNITS/0.01ML SC SCH ×2 (11:06→20:44)
[2020-02-18 12:00] VITALS: BP 105/76
[2020-02-18] MEDS: HumaLOG INSULIN (NovoLOG) PER UNIT SC SCH ×2 (13:01→17:41)
--- NOTE | 2020-02-18 13:43 | IPNPDOC ---
Subjective Date Seen The patient was seen on 02/18/20. Subjective Chief Complaint/HPI Mrs. Parks is a 49 year old female with type 1 DM who is here for DKA. Overnight, her gap had closed. This morning, she was feeling better and more awake and communicative. She was able to drink tea. She was fearful to try solid food. At home she takes Novolin 70-30 as a sliding scale. She does not have a sliding scale protocol, but guesses at how much she needs. She receives her insulin from [facility]. Nurse contacted [facility], the last time she picked up insulin there was 2015. There is a question of compliance. Otherwise, denies fever/chills, chest pain, or dyspnea. Objective Physical Examination General Exam: Positive: Alert, Cooperative Eye Exam: Positive: EOMI; Negative: Sclera icteric ENT Exam: Positive: Atraumatic, Tongue Midline; Negative: Mucous membr. moist/pink Neck Exam: Negative: thyromegaly Chest Exam: Positive: Clear to auscultation Heart Exam: Positive: Rate Normal, Regular Rhythm Abdomen Exam: Positive: Normal bowel sounds, Soft Extremity Exam: Negative: Edema Neuro Exam: Positive: Cranial Nerves 3-12 NL Psych Exam: Positive: Mood NL Assessment /Plan Assessment Mrs. Parks is a 49 year old female with type 1 DM who is here for DKA and JENNY. DKA has resolved. JENNY has improved. Will transition from insulin drip to Levemir 10u qHS and sliding scale AC/HS which is what she was on the last time she was here. Plan/VTE VTE Prophylaxis Ordered?: Yes Plan 1. DKA -High anion gap metabolic acidosis, positive for ketones -Zofran for nausea -Unclear etiology, CXR and CT abd/pelvis negative, no fever or leukocytosis -Possible non-compliance. Her sliding scale is based off of personal estimate rather than a set scale 2. JENNY -Baseline creatine around 1.2 -Current creatinine 1.7 -Secondary to pre-renal -Encourage oral intake 3. Type 1 DM -Trial of solid food -Will use Levemir here and sliding scale insulin 4. DVT ppx -Heparin VS, I&O, 24H, Fishbone Vital Signs/I&O Vital Signs Date Time Temp Pulse Resp B/P (MAP) Pulse Ox O2 Delivery O2 Flow Rate FiO2 02/18/20 07:45 99.3 82 16 105/61 (76) 100 Room Air I&O- Last 24 Hours up to 6 AM 02/18/20 06:00 Intake Total 3381.5 ml Output Total 225 ml Balance 3156.5 ml Laboratory Data 24H LABS Laboratory Tests 2 02/17/20 16:21: Anion Gap 20H, Glomerular Filtration Rate 40.7L, Osmolality 311H, Calcium Level 9.5, Total Bilirubin 1.0, Direct Bilirubin 0.2, Aspartate Amino Transf (AST/SGOT) 22, Alanine Aminotransferase (ALT/SGPT) 18, Alkaline Phosphatase 79, Total Protein 8.2, Albumin 4.3, Albumin/Globulin Ratio 1.1L, Lipase 68L, B- Hydroxybutyrate > 46.00H 02/17/20 18:57: Anion Gap 18H, Glomerular Filtration Rate 39.7L, Calcium Level 8.9, Phosphorus Level 4.4 02/17/20 19:12: Bedside Glucose (Misc Panel) 327H 02/17/20 20:19: Anion Gap 17H, Glomerular Filtration Rate 38.7L, Calcium Level 8.9, Phosphorus Level 4.3 02/17/20 21:17: Bedside Glucose (Misc Panel) 191H 02/17/20 22:40: Bedside Glucose (Misc Panel) 77 02/17/20 22:58: Bedside Glucose (Misc Panel) 79 02/17/20 23:37: Bedside Glucose (Misc Panel) 103 02/18/20 00:08: Bedside Glucose (Misc Panel) 162H 02/18/20 01:09: Bedside Glucose (Misc Panel) 139H 02/18/20 02:23: Bedside Glucose (Misc Panel) 135H 02/18/20 02:25: Anion Gap 7L, Glomerular Filtration Rate 43.3L, Calcium Level 8.2L, Phosphorus Level 2.1#L 02/18/20 03:13: Bedside Glucose (Misc Panel) 133H 02/18/20 04:20: Bedside Glucose (Misc Panel) 101 02/18/20 05:24: Bedside Glucose (Misc Panel) 82 02/18/20 06:19: Bedside Glucose (Misc Panel) 122H 02/18/20 06:32: Nucleated Red Blood Cells % (auto) 0.0, Anion Gap 8, Glomerular Filtration Rate 54.2L, Calcium Level 8.4L, Phosphorus Level 2.0L 02/18/20 07:03: Bedside Glucose (Misc Panel) 156H 02/18/20 08:03: Bedside Glucose (Misc Panel) 123H 02/18/20 09:01: Bedside Glucose (Misc Panel) 112H 02/18/20 10:20: Anion Gap 5L, Glomerular Filtration Rate 52.9L, Calcium Level 8.2L, Phosphorus Level 1.4#L 02/18/20 10:22: Bedside Glucose (Misc Panel) 182H 02/18/20 11:43: Bedside Glucose (Misc Panel) 199H CBC/BMP Laboratory Tests 02/17/20 16:21 02/17/20 18:57 02/17/20 20:19 02/18/20 02:25 02/18/20 06:32 02/18/20 10:20 ATILIO SALAZAR DO Feb 18, 2020 13:43
--- NOTE | 2020-02-18 16:06 | REPVR ---
PROCEDURE INFORMATION: Exam: CT Maxillofacial Without Contrast Exam date and time: 02/18/2020 2:27 PM Age: 49 years old Clinical indication: Mass, lump, or swelling; Other: Top palate; Additional info: Top palate lump/swelling/cyst TECHNIQUE: Imaging protocol: Computed tomography images of the face without contrast. Coronal and sagittal reformats were created and reviewed. Radiation optimization: All CT scans at this facility use at least one of these dose optimization techniques: automated exposure control; mA and/or kV adjustment per patient size (includes targeted exams where dose is matched to clinical indication); or iterative reconstruction. COMPARISON: CT Head without contrast 06/03/2019 12:56:43 PM FINDINGS: Limitations: The noncontrast technique limits evaluation. Orbital cavity: The globes appear intact bilaterally; the lenses appear located. No intraorbital post-septal soft tissue abnormality is identified. Bones/joints: There is a chronic healed fracture deformity of the right mandibular condyle. The right mandibular condyle is anteriorly dislocated at the right temporomandibular joint with the right mandibular condyle perched upon the right temporal eminence. Redemonstration of mild angulation/depression of the left orbital medial wall, possibly indicating a remote fracture deformity. Paranasal sinuses: The left frontal sinus is hypoplastic and clear. The right frontal sinus is aplastic. The ethmoid air cells are clear. The sphenoid sinuses are clear. Mild mucosal thickening of the right maxillary sinus inferiorly. Mild mucosal thickening of the left maxillary sinus inferiorly. No maxillary sinus air-fluid levels. The bilateral ostiomeatal complexes are patent. Mastoid air cells: The visualized mastoid air cells are clear. Auditory system: Nonspecific material within the right external auditory canal, presumably cerumen. Soft tissues: See "Dental" findings. Dental: Multiple dental caries. Left mandibular 2nd bicuspid (tooth #20) periapical lucency consistent with periodontal disease. Left maxillary cuspid and 1st bicuspid (teeth #11 and #12) periapical lucencies consistent with periodontal disease. There is a 1.9 x 1.5 x 1.3 cm (AP x transverse x craniocaudal) intermediate attenuation (39 Hounsfield units) masslike lesion present at the left anterior hard palate abutting the residual root of tooth #12. This masslike lesion erodes the hard palate and a 0.5 x 0.7 cm region of the hard palate is destroyed here. However, the lesion does not appear to extend farther into the nasal cavity. Nasopharynx: No adenoid tonsillar enlargement. Oropharynx: Small bilateral palatine tonsilliths. No palatine tonsillar enlargement. Lymph nodes: No enlarged lymph nodes. Submandibular/Parotid glands: The parotid and submandibular glands are unremarkable. IMPRESSION: 1. A 1.9 cm masslike lesion at the left anterior roof of mouth erodes the hard palate. This lesion may represent a soft tissue mass or complex fluid collection. The lesion abuts the residual root of tooth #12 . The lesion may be odontogenic in origin such as a periodontal abscess. Other soft tissue mass such as a neoplasm is also in the differential diagnosis. 2. Other dental periapical lucencies consistent with periodontal disease as described. Dental caries. 3. Old healed right mandibular condylar fracture. Right temporomandibular joint dislocation as described. 4. Mild bilateral maxillary sinus mucosal thickening. No paranasal sinus air-fluid levels to indicate acute sinusitis. Electronically signed by: Abraham Díaz On 02/18/2020 16:06:06 PM
[2020-02-18] MEDS: ONDANSETRON 4MG/2ML VIAL IV PRN (18:06)
[2020-02-18] MEDS ORDERED: HumaLOG INSULIN (NovoLOG) PER UNIT SC SCH (21:00)
[2020-02-18 22:00] VITALS: BP 109/72
[2020-02-19 04:43] LABS: HEMATOCRIT 26.6 % (36.0-47.0); HEMOGLOBIN 8.5 g/dl (12.0-15.5); MEAN CORPUSCULAR HEMOGLOBIN 27.3 pg (27.0-33.0); MEAN CORPUSCULAR VOLUME 85.5 fl (80.0-96.0); PLATELET COUNT, AUTOMATED 256 10^3/uL (150-450); RED BLOOD COUNT 3.11 10^6/uL (4.00-5.40); WHITE BLOOD COUNT 5.8 10^3/uL (4.0-10.0)
[2020-02-19 05:00] VITALS: BP 131/75
[2020-02-19 05:03] LABS: BLOOD UREA NITROGEN 21 MG/DL (7-18); CALCIUM LEVEL 8.4 MG/DL (8.5-10.1); CARBON DIOXIDE LEVEL 25 MEQ/L (21-32); CHLORIDE LEVEL 109 MEQ/L (98-107); CREATININE FOR GFR 1.14 MG/DL (0.55-1.30); GLOMERULAR FILTRATION RATE > 60.0 (>58); GLUCOSE, FASTING 139 MG/DL (70-100); POTASSIUM SERUM 3.6 MEQ/L (3.5-5.1); SODIUM LEVEL 138 MEQ/L (136-145)
[2020-02-19] MEDS: HumaLOG INSULIN (NovoLOG) PER UNIT SC SCH ×2 (07:30→12:40)
[2020-02-19] MEDS: HEPARIN SOD (PORCINE) 5000UNITS/ML 1ML VIAL/SYRINGE SC SCH (09:15)
[2020-02-19] MEDS: PANTOPRAZOLE 40MG TAB (PROTONIX) PO SCH (09:15)
[2020-02-19] MEDS ORDERED: ONDA4TAB6 PO (10:08)
[2020-02-19] MEDS ORDERED: NOVOINJ3 SC (10:08)
[2020-02-19] MEDS ORDERED: BASA100I SC (10:08)
[2020-02-19] MEDS ORDERED: INSU100I9 SQ (10:49)
[2020-02-19] MEDS ORDERED: NOVOINJ12 SC (11:49)
--- NOTE | 2020-02-19 21:43 | DS.PDOC ---
Discharge Summary General Date of Admission Feb 17, 2020 at 18:25 Date of Discharge Feb 19, 2020 Attending Physician: ATILIO SALAZAR DO Discharge Summary PROCEDURES PERFORMED DURING STAY: None ADMITTING DIAGNOSES: 1. DKA 2. HTN 3. Type 1 diabetes. DISCHARGE DIAGNOSES: 1. DKA 2. HTN 3. Type 1 diabetes. 4. 1.97 cm mass at the left anterior roof of the mouth COMPLICATIONS/CHIEF COMPLAINT: DKA. HISTORY OF PRESENT ILLNESS: Mrs. Parks is a 49 year old female with type 1 DM who is here for DKA. Prior to 3 days ago, she was at normal health. Denies changes in medication or what she ate. Denies sick contacts or travel. Then 3 days ago, she started to have N/V with generalized weakness. She does not know what precipitated the DKA, but she could feel that it was beginning. Denies any fever, chest pain, or dyspnea. She N/V, abdominal pain, and poor appetite. HOSPITAL COURSE: Later that night, her gap closed. At home, she was using NovoLog 70/30 at a sliding scale per patient. It was later found out that she did not have a glucometer to use sliding scale as she had lost her previous one. This may be the reason she wanted to DKA. Otherwise, she has a mass on the roof of the mouth. CT maxillofacial demonstrated 1.9cm mass has eroded into the hard palate. This may be a soft tissue mass or complex fluid collection. No fever or leukocytosis while here, so suspicion for abscess is lower. Contact ENT, who will see her outpatient. Denies lightheadedness or dizziness, fever or chills, chest pain, dyspnea, abdominal pain, or dysuria. She was discharged with Basiglar 8 units (Kwikpen) and Novolog R as sliding scale. She was given a sliding scale chart. DISCHARGE MEDICATIONS: Please see below. ALLERGIES: Please see below. PHYSICAL EXAMINATION ON DISCHARGE: VITAL SIGNS: Please see below. GENERAL: Comfortable, in no apparent distress. HEENT: Head normocephalic/atraumatic, EOMI, sclera clear. NECK: Supple, no JVD. RESPIRATORY: Lungs clear to auscultation bilaterally, no rales, wheeze or rhonchi. CARDIOVASCULAR: Regular rate and rhythm. ABDOMEN: Soft, nontender, no guarding or rebound tenderness. Normal bowel sounds. MUSCLE SKELETAL: Muscle strength 5/5 in all extremities. NEUROLOGICAL: CN 312 grossly intact, no focal deficits noted. PSYCHOLOGICAL: Normal mood and affect LABORATORY DATA: Please see below. IMAGING: CT maxillofacial 1. A 1.9 cm masslike lesion at the left anterior roof of mouth erodes the hard palate. This lesion may represent a soft tissue mass or complex fluid collection. The lesion abuts the residual root of tooth #12 . The lesion may be odontogenic in origin such as a periodontal abscess. Other soft tissue mass such as a neoplasm is also in the differential diagnosis. 2. Other dental periapical lucencies consistent with periodontal disease as described. Dental caries. 3. Old healed right mandibular condylar fracture. Right temporomandibular joint dislocation as described. 4. Mild bilateral maxillary sinus mucosal thickening. No paranasal sinus air-fluid levels to indicate acute sinusitis. PROGNOSIS: Good ACTIVITY: As tolerated. DIET: Carbohydrate consistent diet DISCHARGE PLAN: Home DISPOSITION: 01 Home, Self-Care. DISCHARGE INSTRUCTIONS: 1. Follow-up with her PCP in a week 2. Follow-up with ENT in a week DISCHARGE CONDITION: Stable. Total time spent on discharge planning, discharge summary, medication reconciliation: 45 minutes Vital Signs/I&Os Vital Signs Date Time Temp Pulse Resp B/P (MAP) Pulse Ox O2 Delivery O2 Flow Rate FiO2 02/19/20 05:00 98.6 88 16 131/75 (93) 98 Room Air I&O- Last 24 Hours up to 6 AM 02/19/20 06:00 Intake Total 2163 ml Balance 2163 ml Laboratory Data Labs 24H Laboratory Tests 2 02/19/20 04:20: Nucleated Red Blood Cells % (auto) 0.0, Anion Gap 4L, Glomerular Filtration Rate > 60.0, Calcium Level 8.4L 02/19/20 11:50: Bedside Glucose (Misc Panel) 180H CBC/BMP Laboratory Tests 02/19/20 04:20 FSBS Laboratory Tests Test 02/19/20 11:50 Range/Units Bedside Glucose (Misc Panel) 180 70-105 MG/DL Discharge Medications Scheduled Insulin Glargine,Hum.rec.anlog (Basaglar Kwikpen U-100) 100 Unit/1 Ml Insu ln.pen, 8 UNIT SC QHS Insulin Regular, Human (Novolin R) 100 Unit/1 Ml Vial, 100 UNITS SC ACHS Please use sliding scale sheet Scheduled PRN Ondansetron (Ondansetron Odt) 4 Mg Tab.rapdis, 1 TAB PO Q6-8HP PRN for nausea/vomiting Allergies Coded Allergies: No Known Allergies (Verified , 11/30/19) ATILIO SALAZAR DO Feb 19, 2020 21:43
== END 2020-02-19 14:59 | disposition home or self-care (01) | DRG 420 ==
LOC: M ED 12:46 → M ED INP 18:25 → ENRESERV 18:53 → M ICU 22:19 → M MSPAV 02-19 04:50
PROVIDERS: ADMIT Internal Medicine; ATTEND Internal Medicine
DX: E10.10 Type 1 diabetes mellitus with ketoacidosis without coma (principal); N17.9 Acute kidney failure, unspecified; N18.30 Chronic kidney disease, stage 3 unspecified; E10.22 Type 1 diabetes mellitus with diabetic chronic kidney disease; R22.0 Localized swelling, mass and lump, head; Z79.4 Long term (current) use of insulin; Z87.891 Personal history of nicotine dependence; Z20.828 Contact with and (suspected) exposure to other viral communicable diseases

== ENCOUNTER 2020-03-17 12:07 | Inpatient (IN) | payer OTHER ==
[~2020-03-17] VITALS: Ht 170.2 cm; Wt 66.4 kg
[~2020-03-17 12:07] MED LIST changes: +INSU100I9 SQ; +NOVOINJ12 SC; +NOVOINJ3 SC
[2020-03-17] MEDS ORDERED: NS 1,000 ML IV ONE ×3 (12:15→20:15)
[2020-03-17] MEDS ORDERED: METOCLOPRAMIDE INJ 10MG/2ML VIAL (J2765 PER 1) IV ONE (12:15)
--- NOTE | 2020-03-17 13:14 | REP ---
INDICATION: DKA. COMPARISON: 06/03/2019. TECHNIQUE: Two AP supine films of the abdomen and pelvis are performed. FINDINGS: There is no evidence of bowel obstruction. Mild air and fecal material is seen diffusely throughout the colon. There are no dilated small bowel loops. There are multiple small phleboliths in the pelvis. The visualized osseous structures are unremarkable. The visualized lung bases are clear. IMPRESSION: Unremarkable KUB. <Electronically signed by Asad Osorio > 03/17/20 [id number]
[2020-03-17 14:37] LABS: VENOUS BASE EXCESS -3.8 (-2.0-2.0); VENOUS HCO3 20.1 MEQ/L (23.0-27.0); VENOUS O2 SATURATION 98.7 % (60.0-80.0); VENOUS PARTIAL PRESSURE CO2 32.8 mmHg (38.0-50.0); VENOUS PARTIAL PRESSURE O2 125.9 mmHg (30.0-50.0); VENOUS PH 7.406 UNITS (7.330-7.430); VENOUS STANDARD HCO3 21.4 MEQ/L; VENOUS TOTAL CO2 21.1 MEQ/L (24.0-28.0)
[2020-03-17 14:43] LABS: BASO # 0.1 10^3/uL (0.0-0.2); BASO % 0.5 % (0.0-1.0); HEMATOCRIT 31.8 % (36.0-47.0); HEMOGLOBIN 10.3 g/dl (12.0-15.5); LYMPH # 1.2 10^3/uL (1.5-5.0); LYMPH % 10.7 % (24.0-44.0); MEAN CORPUSCULAR HEMOGLOBIN 27.5 pg (27.0-33.0); MEAN CORPUSCULAR HGB CONC 32.4 g/dl (32.0-36.5); MEAN CORPUSCULAR VOLUME 84.8 fl (80.0-96.0); MONO # 0.6 10^3/uL (0.0-0.8); MONO % 5.6 % (0.0-5.0); NEUTROPHILS % 82.6 % (36.0-66.0); PLATELET COUNT, AUTOMATED 309 10^3/uL (150-450); RED BLOOD COUNT 3.75 10^6/uL (4.00-5.40); WHITE BLOOD COUNT 10.9 10^3/uL (4.0-10.0)
--- NOTE | 2020-03-17 15:02 | ECGEPIP ---
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
[2020-03-17 15:16] LABS: AMPHETAMINES LEVEL URINE NEGATIVE (NEGATIVE); BARBITURATES URINE NEGATIVE (NEGATIVE); BENZODIAZEPINES URINE NEGATIVE (NEGATIVE); CANNABINOIDS URINE POSITIVE (NEGATIVE); COCAINE METABOLITE URINE NEGATIVE (NEGATIVE); METHADONE URINE NEGATIVE (NEGATIVE); OPIATES URINE NEGATIVE (NEGATIVE); PHENCYCLIDINE URINE NEGATIVE (NEGATIVE)
[2020-03-17 15:27] LABS: HEMOGLOBIN A1c 8.4 %
[2020-03-17 16:41] LABS: ALBUMIN 4.2 GM/DL (3.2-5.2); ALT/SGPT 15 U/L (12-78); BILIRUBIN,DIRECT 0.3 MG/DL (0.0-0.2); BILIRUBIN,TOTAL 0.8 MG/DL (0.2-1.0); BLOOD UREA NITROGEN 38 MG/DL (7-18); CALCIUM LEVEL 9.2 MG/DL (8.5-10.1); CARBON DIOXIDE LEVEL 22 MEQ/L (21-32); CHLORIDE LEVEL 98 MEQ/L (98-107); CK-MB VALUE MASS < 1.0 NG/ML (<3.6); CPK CREATINE PHOSPHOKINASE 44 U/L (26-192); CREATININE FOR GFR 1.53 MG/DL (0.55-1.30); GLOMERULAR FILTRATION RATE 46.9 (>58); GLUCOSE, FASTING 355 MG/DL (70-100); LIPASE 133 U/L (73-393); MAGNESIUM LEVEL 2.1 MG/DL (1.8-2.4); MB/CK RELATIVE INDEX 2.27 (< OR =4); PHOSPHORUS LEVEL 3.9 MG/DL (2.5-4.9); POTASSIUM SERUM 3.7 MEQ/L (3.5-5.1); SODIUM LEVEL 135 MEQ/L (136-145); TOTAL PROTEIN 7.6 GM/DL (6.4-8.2); TROPONIN I < 0.02 NG/ML (< 0.10)
[2020-03-17 16:42] LABS: ETHYL ALCOHOL (ETHANOL) < 0.003 % (0.000-0.010)
[2020-03-17 16:47] LABS: OSMOLALITY SERUM 312 MOSM/KG (275-295)
[2020-03-17] MEDS ORDERED: HumuLIN R (REGULAR) INSULIN (NovoLIN R) **100U/ML** PER UNIT IV ONE (17:00)
[2020-03-17 19:00] LABS: ACETONE/KETONE > 46.00 MG/DL (<2.81)
[2020-03-17 19:27] LABS: CALCIUM LEVEL 7.6 MG/DL (8.5-10.1); CREATININE FOR GFR 1.46 MG/DL (0.55-1.30); GLOMERULAR FILTRATION RATE 49.5 (>58); POTASSIUM SERUM 3.6 MEQ/L (3.5-5.1)
[2020-03-17] MEDS ORDERED: ONDA4TAB6 PO (20:46)
[2020-03-17] MEDS ORDERED: INSUR SC (20:46)
[2020-03-17] MEDS ORDERED: BASA100I SC (20:46)
[2020-03-17] MEDS ORDERED: GLUCOSE 4GM CHEW TABLET PO PRN (23:45)
[2020-03-17] MEDS ORDERED: ACETAMINOPHEN TAB 650MG DOSE (2X325MG) PO PRN (23:45)
[2020-03-17] MEDS ORDERED: GLUCAGON INJ 1MG VIAL SC PRN (23:45)
--- NOTE | 2020-03-17 23:57 | HPEPDOC ---
General Date of Admission 03/17/2020 Date of Service: Mar 17, 2020 Other Providers PCP is Abraham Mosquera at [facility] Attending Physician: Jose Kelly MD Chief Complaint The patient is a 49-year-old female admitted with a reason for visit of "I started puking again." Source: Patient, Old records History of Present Illness Ms. Parks is here for her eighth admission this year. Most recent admission was 02/17/2020. She reports about 2 days ago she started vomiting again. At that point she noted her blood sugars were running quite high around 300. Over the next couple days her nausea and vomiting only became worse and her blood sugars drifted up into the 400s. She feels that her blood sugars have been more poorly controlled since the formulation of her insulin was changed after the last hospitalization. She reports she has discussed this with Dr. Russell, but he suggests she gives a little longer. Home Medications Scheduled Insulin Glargine,Hum.rec.anlog (Basaglar Kwikpen U-100) 100 Unit/1 Ml Insuln.pen, 8 UNIT SC QHS, (Reported) Insulin Human Regular (Novolin R) 100 Unit/1 Ml Vial, 1 DOSE SC ACHS, (Reported) SLIDING SCALE Scheduled PRN Ondansetron (Ondansetron Odt) 4 Mg Tab.rapdis, 4 MG PO Q6-8HP PRN for NAUSEA OR VOMITING, (Reported) Allergies Coded Allergies: No Known Allergies (Verified , 11/30/19) Past Medical History Medical History Type 1 diabetes, diagnosed at 32 years of age Chronic kidney disease, stage III Suspected gastroparesis related to diabetes Surgical History D&C, 2003 Family History Her father is alive, 69 years old, no known medical problems Her mother is alive, 70 years old, diabetes and "bad heart" Brothers (3): No known medical problems Sister (1): Hypertension Sons (2): No known medical problems Daughters (2): No known medical problems Social History * Smoker: former Smoker (quit in 2019, had accrued a 4 year pack history by then) Alcohol: Denies Drugs: marijuana (occasionally to help with her appetite, she reports she last smoked marijuana about one week ago) A-FIB/CHADSVASC A-FIB History Current/History of A-Fib/PAF?: No Current PO Anticoag Therapy: No Review of Systems Constitutional: Reports: Chills, Malaise; Denies: Fever ENT: Reports: Head Aches Skin: Denies: Rash, Lesions Pulmonary: Denies: Dyspnea, Cough Cardiovascular: Denies: Chest Pain, Palpitations Gastrointestinal: Reports: Nausea, Vomiting; Denies: Melena, Hematochezia Genitourinary: Denies: Dysuria, Hematuria Hematologic: Denies: Bruising, Bleeding Excessively Endocrine: Reports: Polydipsia, Polyuria; Denies: Polyphagia Neurological: Denies: Weakness, Numbness, Confusion Physical Examination General Exam: Positive: Alert, Cooperative, No Acute Distress (however she appears uncomfortable) Eye Exam: Positive: PERRLA, Conjunctiva & lids normal; Negative: Sclera icteric ENT Exam: Positive: Pharynx Normal; Negative: Mucous membr. moist/pink (slightly dry) Neck Exam: Positive: Supple; Negative: JVD, Lymphadenopathy Chest Exam: Positive: Clear to auscultation, Normal air movement Heart Exam: Positive: Rate Normal, Regular Rhythm, Normal S1, Normal S2, Murmurs (there is a 2/6 midsystolic murmur noted loudest at the left upper sternal border, no noted radiations); Negative: Rubs Abdomen Exam: Positive: BS Hypoactive, Soft; Negative: Tenderness, Hepatospenomegaly Extremity Exam: Positive: Normal pulses; Negative: Edema Skin Exam: Positive: Nl turgor and temperature; Negative: Lesion Neuro Exam: Positive: Normal Speech, Normal Tone Psych Exam: Positive: Mental status NL, Mood NL, Oriented x 3 Vital Signs Vital Signs Date Time Temp Pulse Resp B/P (MAP) Pulse Ox O2 Delivery O2 Flow Rate FiO2 03/17/20 23:45 87 19 125/77 (93) 100 Room Air 03/17/20 22:02 97.5 Laboratory Data Labs 24H Laboratory Tests 2 03/17/20 12:25: Bedside Glucose (Misc Panel) 309H 03/17/20 14:26: Immature Granulocyte % (Auto) 0.6, Neutrophils (%) (Auto) 82.6H, Lymphocytes (%) (Auto) 10.7L, Monocytes (%) (Auto) 5.6H, Eosinophils (%) (Auto) 0.0, Basophils (%) (Auto) 0.5, Neutrophils # (Auto) 9.0H, Lymphocytes # (Auto) 1.2L, Monocytes # (Auto) 0.6, Eosinophils # (Auto) 0.0, Basophils # (Auto) 0.1, Nucleated Red Blood Cells % (auto) 0.0, Urine Color YELLOW, Urine Appearance HAZY, Urine pH 7.0, Urine Specific [place] 1.024, Urine Protein 2+H, Urine Glucose (UA) 3+H, Urine Ketones 2+H, Urine Blood NEGATIVE, Urine Nitrite NEGATIVE, Urine Bilirubin NEGATIVE, Urine Urobilinogen 2.0H, Urine Leukocyte Esterase 1+H, Urine WBC (Auto) 18H, Urine RBC (Auto) 1, Urine Hyaline Casts (Auto) 4, Urine Bacteria (Auto) 1+H, Urine Squamous Epithelial Cells 14, Urine Mucus (Auto) SMALL, Urine Sperm (Auto) , Blood Gas Bicarbonate Standard 21.4, Venous Blood pH 7.406, Venous Blood Partial Pressure CO2 32.8L, Venous Blood Partial Pressure O2 125.9H, Venous Blood Total Carbon Dioxide 21.1L, Venous Blood HCO3 20.1L, Venous Blood Oxygen Saturation 98.7H, Venous Blood Base Excess -3.8L, Anion Gap 15, Glomerular Filtration Rate 46.9L, Estimated Mean Plasma Glucose 194H, Hemoglobin A1c 8.4, Osmolality 312H, Calcium Level 9.2, Phosphorus Level 3.9, Magnesium Level 2.1, Total Bilirubin 0.8, Direct Bilirubin 0.3H, Aspartate Amino Transf (AST/SGOT) 12, Alanine Aminotransferase (ALT/SGPT) 15, Alkaline Phosphatase 72, Total Creatine Kinase 44, Creatine Kinase MB < 1.0, Creatine Kinase MB Relative Index 2.27, Troponin I < 0.02, Total Protein 7.6, Albumin 4.2, Albumin/Globulin Ratio 1.2, Lipase 133, Urine Opiates Screen NEGATIVE, Urine Methadone Screen NEGATIVE, Urine Barbiturates Screen NEGATIVE, Urine Phencyclidine Screen NEGATIVE, Urine Amphetamines Screen NEGATIVE, Urine Benzodiazepines Screen NEGATIVE, Urine Cocaine Metabolite Screen NEGATIVE, Urine Cannabinoids Screen POSITIVEH, Ethyl Alcohol Level < 0.003, B-Hydroxybutyrate > 46.00H 03/17/20 17:19: Bedside Glucose (Misc Panel) 329H 03/17/20 18:47: Anion Gap 13, Glomerular Filtration Rate 49.5L, Calcium Level 7.6#L 03/17/20 19:07: Bedside Glucose (Misc Panel) 195H 03/17/20 20:43: Coronavirus (COVID-19)(PCR) NEGATIVE 03/17/20 21:33: Bedside Glucose (Misc Panel) 227H CBC/BMP Laboratory Tests 03/17/20 14:26 03/17/20 18:47 Microbiology Microbiology 03/17/20 Urine Culture, Received Pending Assessment/Plan This is a 49-year-old woman with type 1 diabetes who requires acute care admission for management of uncontrolled blood sugars which could turn into DKA if she is not managed carefully. Problems (1) Type 1 diabetes, uncontrolled, with gastroparesis Status: Acute Problem Specific Plan: Monitor Clinically, Repeat Labs Problem Text: She has ketones in her urine and a positive beta hydroxybutyrate, however, she is not acidotic and does not have an anion gap. This is very good for her. I think she's come in early enough that we may be able to turn her around before she becomes seriously ill. She is already is received a couple liters of IV fluids while in the ER. I'll start her on half normal saline with 20 mEq of potassium per liter at 125 mL an hour. This should help continue to rehydrate her and restore any potassium losses that might be developing. She is hydrated well enough to be able to use subcutaneous insulin effectively. I'll order every 2 hourly Accu-Cheks for now and manage the insulin ordering over night myself. I ordered a BMP for roughly midnight and 6 AM. This should help to monitor her renal function and potentially developing potassium issues. She is not very far into the moseley at this time, but she is also not out of them. (2) Nausea & vomiting Status: Acute Problem Text: Continue her Zofran. I suspect that the nausea and vomiting will improve once her blood sugars are under better control. Plan / VTE VTE Prophylaxis Ordered?: Yes Plan Plan She wishes to be FULL CODE Anticipated Discharge: Home Jose Kelly MD Mar 17, 2020 23:57
[2020-03-18] MEDS ORDERED: KCL 20MEQ IN D5/0.45NS 1000ML 1,000 ML IV SCH
[2020-03-18] MEDS ORDERED: HumuLIN R (REGULAR) INSULIN (NovoLIN R) **100U/ML** PER UNIT SC ONE (00:15)
[2020-03-18] MEDS ORDERED: PILL CUTTER 1 EACH XX PRN (00:15)
[2020-03-18] MEDS ORDERED: KCL 20MEQ IN 0.45NS 1000ML 1,000 ML IV SCH (00:15)
[2020-03-18] MEDS: SIMETHICONE 80 MG CHEW TAB PO SCH ×5 (00:46→21:00)
[2020-03-18 01:42] LABS: CALCIUM LEVEL 8.3 MG/DL (8.5-10.1); CREATININE FOR GFR 1.39 MG/DL (0.55-1.30); GLOMERULAR FILTRATION RATE 52.4 (>58); POTASSIUM SERUM 4.3 MEQ/L (3.5-5.1)
[2020-03-18] MEDS: LEVEMIR (INSULIN DETEMIR) 1 UNITS/0.01ML SC SCH ×2 (04:32→21:00)
[2020-03-18 06:55] VITALS: BP 123/74
[2020-03-18] MEDS ORDERED: NS 1,000 ML IV ONE (07:15)
[2020-03-18] MEDS: HumaLOG INSULIN (NovoLOG) PER UNIT SC SCH ×4 (07:28→21:00)
[2020-03-18] MEDS: ONDANSETRON 4 MG ORAL DISINTEGRATING TAB PO PRN (07:30)
[2020-03-18 07:58] LABS: HEMATOCRIT 28.8 % (36.0-47.0); HEMOGLOBIN 9.4 g/dl (12.0-15.5); MEAN CORPUSCULAR HEMOGLOBIN 28.1 pg (27.0-33.0); MEAN CORPUSCULAR HGB CONC 32.6 g/dl (32.0-36.5); PLATELET COUNT, AUTOMATED 270 10^3/uL (150-450); RED BLOOD COUNT 3.35 10^6/uL (4.00-5.40); WHITE BLOOD COUNT 9.7 10^3/uL (4.0-10.0)
[2020-03-18 08:00] VITALS: BP 137/74
[2020-03-18] MEDS ORDERED: MORPHINE 2 MG/ML 1ML VIAL (J2270) IV ONE (08:00)
[2020-03-18] MEDS: METOCLOPRAMIDE INJ 10MG/2ML VIAL (J2765 PER 1) IV SCH ×4 (08:06→21:00)
[2020-03-18 08:11] LABS: CREATININE FOR GFR 1.33 MG/DL (0.55-1.30); GLOMERULAR FILTRATION RATE 55.2 (>58); POTASSIUM SERUM 3.9 MEQ/L (3.5-5.1)
[2020-03-18] MEDS: ENOXAPARIN 40MG/0.4ML SYRINGE (J1650 PER 10MG) SC SCH (08:50)
[2020-03-18] MEDS: PROMETHAZINE INJ 25 MG/ML VIAL (J2550) IV SCH ×3 (08:50→21:00)
--- NOTE | 2020-03-18 10:40 | IPNPDOC ---
Date Seen The patient was seen on 03/18/20. Progress Note SUBJECTIVE Patient still complains of some epigastric left lower quadrant abdominal discomfort rated as 3/10 when she is not moving., No fever No chills. No vomiting. , She had episodes of hypoglycemia 57 today. OBJECTIVE: Vital see below Generally, awake, alert, oriented to person, place and time. No icterus or jaundice. No pallor. Dry mucous membranes. Lungs are clear to auscultation. No wheezing, rales or rhonchi. Heart: S1, S2, sinus rhythm. Abdomen is soft, tender in the left lower quadrant, epigastric. No rebound or guarding. No costovertebral angle (CVA) tenderness. Extremities: No cyanosis, clubbing or pitting edema. LABORATORY DATA: See below ASSESSMENT AND PLAN: A 49-year-old with type 1 diabetes, gastroparesis, 1. Type 1 diabetes, uncontrolled. Episode of hypoglycemia today. Patient needs an endocrine referral. She has gastroparesis, has had multiple admissions for DKA in the past. Patient is currently on fingersticks before food and nightly. On Levemir insulin hypoglycemic protocol fingersticks every before meals at bedtime IV fluids. 2. Gastroparesis. Patient was encouraged to have small frequent meals, high protein intake. Reglan before food and nightly and Protonix. Patient still complains of some epigastric discomfort with some nausea. Therefore, she will be kept on Reglan and Phenergan for nausea. 3. Acute kidney injury, on IV fluids Secondary to dehydration from nausea, vomiting. VS[facility]O Vital Signs Date Time Temp Pulse Resp B/P (MAP) Pulse Ox O2 Delivery O2 Flow Rate FiO2 03/18/20 08:33 16 03/18/20 08:00 98.6 74 137/74 (95) 99 Room Air I&O- Last 24 Hours up to 6 AM 03/18/20 06:00 Intake Total 3000 ml Balance 3000 ml Laboratory Data 24H LABS Laboratory Tests 2 03/17/20 12:25: Bedside Glucose (Misc Panel) 309H 03/17/20 14:26: Immature Granulocyte % (Auto) 0.6, Neutrophils (%) (Auto) 82.6H, Lymphocytes (%) (Auto) 10.7L, Monocytes (%) (Auto) 5.6H, Eosinophils (%) (Auto) 0.0, Basophils (%) (Auto) 0.5, Neutrophils # (Auto) 9.0H, Lymphocytes # (Auto) 1.2L, Monocytes # (Auto) 0.6, Eosinophils # (Auto) 0.0, Basophils # (Auto) 0.1, Nucleated Red Blood Cells % (auto) 0.0, Urine Color YELLOW, Urine Appearance HAZY, Urine pH 7.0, Urine Specific [place] 1.024, Urine Protein 2+H, Urine Glucose (UA) 3+H, Urine Ketones 2+H, Urine Blood NEGATIVE, Urine Nitrite NEGATIVE, Urine Bilirubin NEGATIVE, Urine Urobilinogen 2.0H, Urine Leukocyte Esterase 1+H, Urine WBC (Auto) 18H, Urine RBC (Auto) 1, Urine Hyaline Casts (Auto) 4, Urine Bacteria (Auto) 1+H, Urine Squamous Epithelial Cells 14, Urine Mucus (Auto) SMALL, Urine Sperm (Auto) , Blood Gas Bicarbonate Standard 21.4, Venous Blood pH 7.406, Venous Blood Partial Pressure CO2 32.8L, Venous Blood Partial Pressure O2 125.9H, Venous Blood Total Carbon Dioxide 21.1L, Venous Blood HCO3 20.1L, Venous Blood Oxygen Saturation 98.7H, Venous Blood Base Excess -3.8L, Anion Gap 15, Glomerular Filtration Rate 46.9L, Estimated Mean Plasma Glucose 194H, Hemoglobin A1c 8.4, Osmolality 312H, Calcium Level 9.2, Phosphorus Level 3.9, Magnesium Level 2.1, Total Bilirubin 0.8, Direct Bilirubin 0.3H, Aspartate Amino Transf (AST/SGOT) 12, Alanine Aminotransferase (ALT/SGPT) 15, Alkaline Phosphatase 72, Total Creatine Kinase 44, Creatine Kinase MB < 1.0, Creatine Kinase MB Relative Index 2.27, Troponin I < 0.02, Total Protein 7.6, Albumin 4.2, Albumin/Globulin Ratio 1.2, Lipase 133, Urine Opiates Screen NEGATIVE, Urine Methadone Screen NEGATIVE, Urine Barbiturates Screen NEGATIVE, Urine Phencyclidine Screen NEGATIVE, Urine Amphetamines Screen NEGATIVE, Urine Benzodiazepines Screen NEGATIVE, Urine Cocaine Metabolite Screen NEGATIVE, Urine Cannabinoids Screen POSITIVEH, Ethyl Alcohol Level < 0.003, B-Hydroxybutyrate > 46.00H 03/17/20 17:19: Bedside Glucose (Misc Panel) 329H 03/17/20 18:47: Anion Gap 13, Glomerular Filtration Rate 49.5L, Calcium Level 7.6#L 03/17/20 19:07: Bedside Glucose (Misc Panel) 195H 03/17/20 20:43: Coronavirus (COVID-19)(PCR) NEGATIVE 03/17/20 21:33: Bedside Glucose (Misc Panel) 227H 03/18/20 00:00: Bedside Glucose (Misc Panel) 282H 03/18/20 01:02: Anion Gap 16, Glomerular Filtration Rate 52.4L, Calcium Level 8.3L 03/18/20 07:01: Bedside Glucose (Misc Panel) 57L 03/18/20 07:39: Anion Gap 9, Glomerular Filtration Rate 55.2L, Calcium Level 8.0L, Nucleated Red Blood Cells % (auto) 0.0 CBC/BMP Laboratory Tests 03/17/20 14:26 03/17/20 18:47 03/18/20 01:02 03/18/20 07:39 Microbiology Microbiology 03/17/20 Urine Culture, Received Pending PRECIOUS ROSE MD Mar 18, 2020 10:40
[2020-03-18 10:45] VITALS: BP 112/58
[2020-03-18] MEDS ORDERED: MOM 30ML SUSPENSION UDC PO PRN (10:45)
[2020-03-18] MEDS ORDERED: NALOXONE INJ 0.4MG/1ML VIAL (J2310 PER 1MG) IV PRN (10:45)
[2020-03-18] MEDS ORDERED: SENOKOT S TAB PO PRN (10:45)
[2020-03-18] MEDS: PANTOPRAZOLE 40MG VIAL (C9113 PER 1) IV SCH ×2 (10:50→21:38)
[2020-03-18] MEDS: MORPHINE 30 MG TAB **MSIR PO SCH ×3 (12:00→23:38)
[2020-03-18 14:00] VITALS: BP 118/59
[2020-03-18 16:57] LABS: CALCIUM LEVEL 7.7 MG/DL (8.5-10.1); CREATININE FOR GFR 1.25 MG/DL (0.55-1.30); GLOMERULAR FILTRATION RATE 59.3 (>58); POTASSIUM SERUM 3.6 MEQ/L (3.5-5.1)
[2020-03-18 22:00] VITALS: BP 118/73
[2020-03-19 02:00] VITALS: BP 118/70
[2020-03-19] MEDS: PROMETHAZINE INJ 25 MG/ML VIAL (J2550) IV SCH (03:00)
[2020-03-19 06:00] VITALS: BP 115/69
[2020-03-19] MEDS: MORPHINE 30 MG TAB **MSIR PO SCH ×3 (06:00→18:00)
[2020-03-19] MEDS: METOCLOPRAMIDE INJ 10MG/2ML VIAL (J2765 PER 1) IV SCH ×5 (07:30→21:00)
[2020-03-19] MEDS ORDERED: NS 1,000 ML IV ONE (07:45)
[2020-03-19] MEDS ORDERED: PROMETHAZINE INJ 25 MG/ML VIAL (J2550) IV PRN (07:45)
--- NOTE | 2020-03-19 07:47 | IPNPDOC ---
Date Seen The patient was seen on 03/19/20. Progress Note SUBJECTIVE: abd pain n/v resolved. no fever chills. on levemir insulin. no sob. c/o weakness and fatigue OBJECTIVE: Vital see below Generally, no distress HEENT: no thyromegaly, no carotid bruit Lungs are clear to auscultation. No wheezing, rales or rhonchi. Heart: S1, S2, sinus rhythm. Abdomen is soft, tender in the left lower quadrant, epigastric. No rebound or guarding. No costovertebral angle (CVA) tenderness. Extremities: No cyanosis, clubbing or pitting edema. LABORATORY DATA: See below ASSESSMENT AND PLAN: A 49-year-old with type 1 diabetes, gastroparesis, 1.DKA, resolved Type 1 diabetes, uncontrolled. on levemir, ivfluids consistent carbs and sliding scale w qachs fingersticks. 2. Gastroparesis. Patient was encouraged to have small frequent meals, high protein intake. Reglan before food and nightly and Protonix. phenergan for nausea 3. Acute kidney injury, resolved due to decreased po intake and vomiting w volume loss on IV fluids VS, I&O, 24H, Fishbone Vital Signs/I&O Vital Signs Date Time Temp Pulse Resp B/P (MAP) Pulse Ox O2 Delivery O2 Flow Rate FiO2 03/19/20 06:00 98.3 85 18 115/69 (84) 98 Room Air I&O- Last 24 Hours up to 6 AM 03/19/20 06:00 Intake Total 1000 ml Output Total 0 ml Balance 1000 ml Laboratory Data 24H LABS Laboratory Tests 2 03/18/20 10:59: Bedside Glucose (Misc Panel) 195H 03/18/20 16:11: Anion Gap 10, Glomerular Filtration Rate 59.3, Calcium Level 7.7L 03/18/20 16:52: Bedside Glucose (Misc Panel) 94 03/18/20 20:36: Bedside Glucose (Misc Panel) 199H 03/19/20 05:56: Bedside Glucose (Misc Panel) 343H CBC/BMP Laboratory Tests 03/18/20 16:11 Microbiology Microbiology 03/17/20 Urine Culture - Final, Complete PRECIOUS ROSE MD Mar 19, 2020 07:47
[2020-03-19] MEDS: HumaLOG INSULIN (NovoLOG) PER UNIT SC SCH ×4 (07:58→21:00)
[2020-03-19] MEDS: SIMETHICONE 80 MG CHEW TAB PO SCH ×4 (07:59→21:00)
[2020-03-19] MEDS: PANTOPRAZOLE 40MG VIAL (C9113 PER 1) IV SCH ×2 (07:59→21:30)
[2020-03-19] MEDS: ENOXAPARIN 40MG/0.4ML SYRINGE (J1650 PER 10MG) SC SCH (08:00)
[2020-03-19] MEDS ORDERED: SODIUM BICARBONATE 325 MG TAB PO ONE (08:00)
[2020-03-19 10:00] VITALS: BP 143/80
[2020-03-19 12:49] LABS: ACETONE/KETONE 33.7 MG/DL (<2.81); CALCIUM LEVEL 8.6 MG/DL (8.5-10.1); CREATININE FOR GFR 1.42 MG/DL (0.55-1.30); GLOMERULAR FILTRATION RATE 51.1 (>58); POTASSIUM SERUM 3.7 MEQ/L (3.5-5.1)
[2020-03-19 14:00] VITALS: BP 146/80
[2020-03-19 18:00] VITALS: BP 145/87
[2020-03-19] MEDS: LEVEMIR (INSULIN DETEMIR) 1 UNITS/0.01ML SC SCH (21:00)
[2020-03-19 22:00] VITALS: BP 139/85
[2020-03-20] MEDS: ONDANSETRON 4 MG ORAL DISINTEGRATING TAB PO PRN (03:45)
[2020-03-20] MEDS: MORPHINE 30 MG TAB **MSIR PO SCH ×4 (05:10→17:09)
[2020-03-20 06:00] VITALS: BP 120/65
[2020-03-20] MEDS: HumaLOG INSULIN (NovoLOG) PER UNIT SC SCH ×4 (06:59→20:38)
[2020-03-20 07:25] LABS: HEMATOCRIT 29.1 % (36.0-47.0); HEMOGLOBIN 9.3 g/dl (12.0-15.5); MEAN CORPUSCULAR HEMOGLOBIN 27.7 pg (27.0-33.0); MEAN CORPUSCULAR VOLUME 86.6 fl (80.0-96.0); PLATELET COUNT, AUTOMATED 239 10^3/uL (150-450); RED BLOOD COUNT 3.36 10^6/uL (4.00-5.40); WHITE BLOOD COUNT 11.3 10^3/uL (4.0-10.0)
[2020-03-20] MEDS: METOCLOPRAMIDE INJ 10MG/2ML VIAL (J2765 PER 1) IV SCH ×4 (07:30→17:09)
[2020-03-20] MEDS ORDERED: BASA100I SC (08:21)
[2020-03-20] MEDS ORDERED: REGL5TAB2 PO (08:21)
[2020-03-20] MEDS: SIMETHICONE 80 MG CHEW TAB PO SCH ×5 (09:00→20:39)
[2020-03-20] MEDS: PANTOPRAZOLE 40MG VIAL (C9113 PER 1) IV SCH ×2 (09:21→20:39)
[2020-03-20] MEDS: ENOXAPARIN 40MG/0.4ML SYRINGE (J1650 PER 10MG) SC SCH (09:21)
[2020-03-20 10:00] VITALS: BP 113/64
[2020-03-20 10:48] LABS: ALBUMIN 3.3 GM/DL (3.2-5.2); BILIRUBIN,TOTAL 0.4 MG/DL (0.2-1.0); CALCIUM LEVEL 9.2 MG/DL (8.5-10.1); CREATININE FOR GFR 1.41 MG/DL (0.55-1.30); GLOMERULAR FILTRATION RATE 51.6 (>58); POTASSIUM SERUM 3.8 MEQ/L (3.5-5.1); TOTAL PROTEIN 6.2 GM/DL (6.4-8.2)
[2020-03-20 14:00] VITALS: BP 126/90
[2020-03-20 18:00] VITALS: BP 136/90
--- NOTE | 2020-03-20 19:30 | IPNPDOC ---
Date Seen The patient was seen on 03/20/20. Progress Note SUBJECTIVE: Appetite picked up later in day, encouraging PO intake of fluids as lost IV site. Ketone levels higher today despite improvement of sugars. Increased Levemir HS and will see how AM sugar looks. She denies nausea and antiemetics d/jt outside of zofran. She denies chest pain, shortness of breath, fevers, chills, nausea, vomiting. OBJECTIVE: PHYSICAL EXAM: VS: Please see below General: NAD, resting comfortably in bed HEENT: no thyromegaly, no carotid bruit Lungs are clear to auscultation. No wheezing, rales or rhonchi. Heart: S1, S2, sinus rhythm. Abdomen: BS + 4 quad, soft, tender in the left lower quadrant, epigastric. No rebound or guarding. No costovertebral angle (CVA) tenderness. Extremities: No cyanosis, clubbing or pitting edema. LABORATORY DATA: See below ASSESSMENT: A 49-year-old with type 1 diabetes, gastroparesis admitted for DKA, gastroparesis. PLAN: DKA 2/2 to uncontrolled DM type I- resolved -BS still elevated in AM at >300 but improved during day to <150. Ketone elevated at 48, higher than yesterday -Eating better this afternoon, encouraging plenty PO fluids -Increased HS levemir to 15 SC. -C/w ISS, FS AC/HS, consistent carb diet. Gastroparesis 2/2 to uncontrolled DM type I -Denies n/v today -Stopped several antiemetic meds, zofran PRN only -Encouraged to have small frequent meals, high protein intake. -If needed, can add reglan PO if n/v returns Acute kidney injury 2/2 to decreased po intake and vomiting w volume loss. ? CKD -Cr 1.42, near her normal on previous admissions -Encourage PO fluids, lost IV access today and she would like to keep out -F/u Cr in AM. GI px PPI BID DVT px. -enoxaparin DISPOSITION: If labs and FS look further improved by AM, consider discharge home with f/u with PCP. VS, I&O, 24H, Fishbone Vital Signs/I&O Vital Signs Date Time Temp Pulse Resp B/P (MAP) Pulse Ox O2 Delivery O2 Flow Rate FiO2 03/20/20 18:00 98.0 94 18 136/90 (105) 100 Room Air I&O- Last 24 Hours up to 6 AM 03/20/20 05:59 Intake Total 1500 ml Output Total 0 ml Balance 1500 ml Laboratory Data 24H LABS Laboratory Tests 2 03/19/20 21:10: Bedside Glucose (Misc Panel) 119H 03/20/20 06:47: Bedside Glucose (Misc Panel) 352H 03/20/20 07:08: Nucleated Red Blood Cells % (auto) 0.0, B-Hydroxybutyrate > 46.00H 03/20/20 07:26: Bedside Glucose (Misc Panel) 352H 03/20/20 10:07: Anion Gap 13, Glomerular Filtration Rate 51.6L, Calcium Level 9.2, Total Bilirubin 0.4, Aspartate Amino Transf (AST/SGOT) 10, Alanine Aminotransferase (ALT/SGPT) 17, Alkaline Phosphatase 60, Total Protein 6.2L, Albumin 3.3#, Albumin/Globulin Ratio 1.1L 03/20/20 11:51: Bedside Glucose (Misc Panel) 138H 03/20/20 16:36: Bedside Glucose (Misc Panel) 144H CBC/BMP Laboratory Tests 03/20/20 07:08 03/20/20 10:07 Microbiology Microbiology 03/17/20 Urine Culture - Final, Complete Current Medications Current Medications Medications (Trade) Dose Ordered Sig/Skinny Route PRN Reason Start Time Stop Time Status Last Admin Dose Admin Acetaminophen (Tylenol Tab) 650 mg Q4H PRN PO PAIN OR FEVER 03/17/20 23:45 Dextrose (Dextrose 50%) 25 ml ASDIRECTED PRN IV SEE LABEL COMMENTS 03/17/20 23:45 Enoxaparin Sodium (Lovenox) 40 mg DAILY SC 03/18/20 09:00 03/20/20 09:21 Glucagon (Glucagon) 1 mg ASDIRECTED PRN SC SEE LABEL COMMENTS 03/17/20 23:45 Glucose (Glucose) 16 GM ASDIRECTED PRN PO SEE LABEL COMMENTS 03/17/20 23:45 Home Med (Med Rec Complete!) ASDIRECTED XX 03/17/20 21:00 03/17/20 20:50 DC Insulin Detemir (Levemir Insulin) 10 units QHS SC 03/17/20 21:00 Insulin Human Lispro (HumaLOG INSULIN) SEE PROTOCOL TABLE AC NH 03/18/20 07:30 03/20/20 18:26 Insulin Human Lispro (HumaLOG INSULIN) SEE PROTOCOL TABLE QHS SC 03/18/20 21:00 Magnesium Hydroxide (Milk Of Magnesia) 30 ml Q4HP PRN PO CONSTIPATION 03/18/20 10:45 Metoclopramide HCl (REGLAN INJection) 10 mg ACHS IV 03/18/20 07:30 03/19/20 09:57 Morphine Sulfate (Msir) 15 mg Q6H PO 03/18/20 12:00 03/20/20 05:10 Naloxone HCl (Narcan) 0.1 mg Q5MP PRN IV RESP. RATE < 10 03/18/20 10:45 Ondansetron HCl (Zofran Odt) 4 mg Q6HP PRN PO NAUSEA OR VOMITING 03/18/20 03:30 03/20/20 03:45 Pantoprazole Sodium (Protonix) 40 mg BID IV 03/18/20 09:00 03/20/20 09:21 Potassium Chloride/Dextrose/ Sod Cl 1,000 ml @ 125 mls/hr Q8H IV 03/18/20 00:00 03/18/20 00:13 DC Potassium Chloride/Sodium Chloride 1,000 ml @ 125 mls/hr Q8H IV 03/18/20 00:15 03/18/20 07:06 DC 03/18/20 00:47 Promethazine HCl (PHENERGAN INJection) 25 mg Q6H IV 03/18/20 09:00 03/19/20 07:45 DC 03/18/20 08:50 Promethazine HCl (PHENERGAN INJection) 25 mg Q6H PRN IV NAUSEA 03/19/20 07:45 03/20/20 04:00 Senna/Docusate Sodium (Senokot S) 2 tab BIDP PRN PO CONSTIPATION 03/18/20 10:45 Simethicone (Mylicon) 120 mg QID PO 03/17/20 21:00 03/19/20 07:59 Allergies Coded Allergies: No Known Allergies (Verified , 11/30/19) Laurence Tompkins MD Mar 20, 2020 19:30
[2020-03-20] MEDS ORDERED: LEVEMIR (INSULIN DETEMIR) 1 UNITS/0.01ML SC SCH (21:00)
[2020-03-20 22:00] VITALS: BP 136/89
[2020-03-21 02:00] VITALS: BP 134/83
[2020-03-21 06:00] VITALS: BP 135/87
[2020-03-21 07:18] LABS: ACETONE/KETONE > 46.00 MG/DL (<2.81); ALBUMIN 3.3 GM/DL (3.2-5.2); ALT/SGPT 14 U/L (12-78); BILIRUBIN,TOTAL 0.5 MG/DL (0.2-1.0); BLOOD UREA NITROGEN 17 MG/DL (7-18); CALCIUM LEVEL 8.8 MG/DL (8.5-10.1); CARBON DIOXIDE LEVEL 14 MEQ/L (21-32); CHLORIDE LEVEL 104 MEQ/L (98-107); CREATININE FOR GFR 1.43 MG/DL (0.55-1.30); GLOMERULAR FILTRATION RATE 50.7 (>58); GLUCOSE, FASTING 380 MG/DL (70-100); POTASSIUM SERUM 4.3 MEQ/L (3.5-5.1); SODIUM LEVEL 133 MEQ/L (136-145); TOTAL PROTEIN 6.4 GM/DL (6.4-8.2)
[2020-03-21] MEDS: HumaLOG INSULIN (NovoLOG) PER UNIT SC SCH ×4 (08:06→21:00)
[2020-03-21] MEDS: SIMETHICONE 80 MG CHEW TAB PO SCH ×4 (08:06→21:00)
[2020-03-21] MEDS: PANTOPRAZOLE 40MG VIAL (C9113 PER 1) IV SCH ×2 (08:07→22:57)
[2020-03-21] MEDS: ENOXAPARIN 40MG/0.4ML SYRINGE (J1650 PER 10MG) SC SCH (08:07)
[2020-03-21] MEDS: ONDANSETRON 4 MG ORAL DISINTEGRATING TAB PO PRN (08:10)
[2020-03-21] MEDS ORDERED: LEVEMIR (INSULIN DETEMIR) 1 UNITS/0.01ML SC SCH ×2 (09:00→21:00)
[2020-03-21] MEDS: NS 1,000 ML IV SCH ×2 (10:17→18:30)
--- NOTE | 2020-03-21 12:50 | IPNPDOC ---
Date Seen The patient was seen on 03/21/20. Progress Note SUBJECTIVE: Increased nausea, acetone still elevated this AM. Added day levemir plus increased HS. Restarted IVFs. She denies chest pain, shortness of breath, fevers, chills. OBJECTIVE: PHYSICAL EXAM: VS: Please see below General: appears uncomfortable in bed today, slightly restless HEENT: no thyromegaly, no carotid bruit Lungs are clear to auscultation. No wheezing, rales or rhonchi. Heart: S1, S2, sinus rhythm. Abdomen: BS + 4 quad, soft, nontender. No rebound or guarding. No costove rtebral angle (CVA) tenderness. Extremities: No cyanosis, clubbing or pitting edema. LABORATORY DATA: See below ASSESSMENT: A 49-year-old with type 1 diabetes, gastroparesis admitted for DKA, gastroparesis. PLAN: DKA 2/2 to uncontrolled DM type I -AG 15, acetone positive and slightly higher this AM, uncontrolled BS and appears slightly dehydrated. -Nausea +, encouraging fluids -Increased HS levemir to 20 SC, started levemir 10 U SC AM. -C/w IVFs, ISS, FS AC/HS, consistent carb diet. Gastroparesis 2/2 to uncontrolled DM type I -+ nausea and dry heaves today. -Restarted reglan -C/w zofran PRN -Encouraged to have small frequent meals, high protein intake. Acute kidney injury 2/2 to decreased po intake and vomiting w volume loss. ? CKD -Cr 1.43, near her normal on previous admissions but no documented CKD -Attempted to encourage PO fluids, but not taking much in. -Restarted IVFs at 100 cc/hr. Avoid nephrotoxic meds -F/u Cr in AM. GI px PPI BID DVT px. -enoxaparin DISPOSITION: Plan is discharge home when medically improved. VS, I&O, 24H, Onesimobone Vital Signs/I&O Vital Signs Date Time Temp Pulse Resp B/P (MAP) Pulse Ox O2 Delivery O2 Flow Rate FiO2 03/21/20 06:00 98.7 98 18 135/87 (103) 100 Room Air I&O- Last 24 Hours up to 6 AM 03/21/20 06:00 Intake Total 2240 ml Output Total 0 ml Balance 2240 ml Laboratory Data 24H LABS Laboratory Tests 2 03/20/20 16:36: Bedside Glucose (Misc Panel) 144H 03/20/20 20:36: Bedside Glucose (Misc Panel) 163H 03/20/20 22:57: Bedside Glucose (Misc Panel) 204H 03/21/20 06:05: Anion Gap 15, Glomerular Filtration Rate 50.7L, Calcium Level 8.8, Total Bilirubin 0.5, Aspartate Amino Transf (AST/SGOT) 9, Alanine Aminotransferase (ALT/SGPT) 14, Alkaline Phosphatase 68, Total Protein 6.4, Albumin 3.3, Albumin/Globulin Ratio 1.1L, B-Hydroxybutyrate > 46.00H 03/21/20 12:13: Bedside Glucose (Misc Panel) 157H CBC/BMP Laboratory Tests 03/21/20 06:05 Microbiology Microbiology 03/17/20 Urine Culture - Final, Complete Current Medications Current Medications Medications (Trade) Dose Ordered Sig/Skinny Route PRN Reason Start Time Stop Time Status Last Admin Dose Admin Acetaminophen (Tylenol Tab) 650 mg Q4H PRN PO PAIN OR FEVER 03/17/20 23:45 Dextrose (Dextrose 50%) 25 ml ASDIRECTED PRN IV SEE LABEL COMMENTS 03/17/20 23:45 Enoxaparin Sodium (Lovenox) 40 mg DAILY SC 03/18/20 09:00 03/21/20 08:07 Glucagon (Glucagon) 1 mg ASDIRECTED PRN SC SEE LABEL COMMENTS 03/17/20 23:45 Glucose (Glucose) 16 GM ASDIRECTED PRN PO SEE LABEL COMMENTS 03/17/20 23:45 Home Med (Med Rec Complete!) ASDIRECTED XX 03/17/20 21:00 03/17/20 20:50 DC Insulin Detemir (Levemir Insulin) 10 units QAM SC 03/21/20 09:00 03/21/20 10:16 Insulin Detemir (Levemir Insulin) 10 units QHS SC 03/17/20 21:00 03/20/20 19:13 DC Insulin Detemir (Levemir Insulin) 15 units QHS SC 03/20/20 21:00 03/21/20 08:23 DC Insulin Detemir (Levemir Insulin) 20 units QHS SC 03/21/20 21:00 Insulin Human Lispro (HumaLOG INSULIN) SEE PROTOCOL TABLE AC SC 03/18/20 07:30 03/21/20 08:06 Insulin Human Lispro (HumaLOG INSULIN) SEE PROTOCOL TABLE QHS SC 03/18/20 21:00 Magnesium Hydroxide (Milk Of Magnesia) 30 ml Q4HP PRN PO CONSTIPATION 03/18/20 10:45 Metoclopramide HCl (REGLAN INJection) 10 mg ACHS IV 03/18/20 07:30 03/20/20 19:13 DC 03/19/20 09:57 Morphine Sulfate (Msir) 15 mg Q6H PO 03/18/20 12:00 03/20/20 19:13 DC 03/20/20 05:10 Naloxone HCl (Narcan) 0.1 mg Q5MP PRN IV RESP. RATE < 10 03/18/20 10:45 Ondansetron HCl (Zofran Odt) 4 mg Q6HP PRN PO NAUSEA OR VOMITING 03/18/20 03:30 03/21/20 08:10 Pantoprazole Sodium (Protonix) 40 mg BID IV 03/18/20 09:00 03/20/20 09:21 Potassium Chloride/Dextrose/ Sod Cl 1,000 ml @ 125 mls/hr Q8H IV 03/18/20 00:00 03/18/20 00:13 DC Potassium Chloride/Sodium Chloride 1,000 ml @ 125 mls/hr Q8H IV 03/18/20 00:15 03/18/20 07:06 DC 03/18/20 00:47 Promethazine HCl (PHENERGAN INJection) 25 mg Q6H IV 03/18/20 09:00 03/19/20 07:45 DC 03/18/20 08:50 Promethazine HCl (PHENERGAN INJection) 25 mg Q6H PRN IV NAUSEA 03/19/20 07:45 03/20/20 19:13 DC 03/20/20 04:00 Senna/Docusate Sodium (Senokot S) 2 tab BIDP PRN PO CONSTIPATION 03/18/20 10:45 Simethicone (Mylicon) 120 mg QID PO 03/17/20 21:00 03/21/20 08:06 Sodium Chloride 1,000 ml @ 100 mls/hr Q10H IV 03/21/20 08:30 03/21/20 10:17 Allergies Coded Allergies: No Known Allergies (Verified , 11/30/19) Laurence Tompkins MD Mar 21, 2020 12:50
[2020-03-21] MEDS: METOCLOPRAMIDE INJ 10MG/2ML VIAL (J2765 PER 1) IV PRN ×2 (12:52→22:57)
[2020-03-21 16:00] VITALS: BP_SYST 135; BP_SYST 136; BP_DIAS 85
[2020-03-21] MEDS: DEXTROSE 50% 50 ML SYRINGE IV PRN ×2 (17:24→22:08)
[2020-03-21 22:00] VITALS: BP 140/81
[2020-03-22 02:00] VITALS: BP 138/80
[2020-03-22 06:00] VITALS: BP 138/94
[2020-03-22] MEDS: HumaLOG INSULIN (NovoLOG) PER UNIT SC SCH ×4 (07:30→21:00)
[2020-03-22] MEDS ORDERED: D5W/0.9% SODIUM CHLORIDE 1,000 ML IV SCH (08:15)
[2020-03-22 08:43] LABS: HEMATOCRIT 27.2 % (36.0-47.0); HEMOGLOBIN 8.9 g/dl (12.0-15.5); MEAN CORPUSCULAR HEMOGLOBIN 27.5 pg (27.0-33.0); MEAN CORPUSCULAR HGB CONC 32.7 g/dl (32.0-36.5); PLATELET COUNT, AUTOMATED 214 10^3/uL (150-450); RED BLOOD COUNT 3.24 10^6/uL (4.00-5.40); WHITE BLOOD COUNT 5.1 10^3/uL (4.0-10.0)
[2020-03-22] MEDS: PANTOPRAZOLE 40MG VIAL (C9113 PER 1) IV SCH ×2 (08:45→21:00)
[2020-03-22] MEDS: METOCLOPRAMIDE INJ 10MG/2ML VIAL (J2765 PER 1) IV SCH ×3 (08:45→21:00)
[2020-03-22] MEDS: ONDANSETRON 4MG/2ML VIAL IV PRN ×2 (08:45→13:06)
[2020-03-22] MEDS: ENOXAPARIN 40MG/0.4ML SYRINGE (J1650 PER 10MG) SC SCH (08:46)
[2020-03-22] MEDS: SIMETHICONE 80 MG CHEW TAB PO SCH ×4 (08:46→21:00)
[2020-03-22 09:15] LABS: ALBUMIN 3.1 GM/DL (3.2-5.2); ALT/SGPT 14 U/L (12-78); BILIRUBIN,TOTAL 0.6 MG/DL (0.2-1.0); BLOOD UREA NITROGEN 11 MG/DL (7-18); CALCIUM LEVEL 8.4 MG/DL (8.5-10.1); CARBON DIOXIDE LEVEL 22 MEQ/L (21-32); CHLORIDE LEVEL 107 MEQ/L (98-107); GLOMERULAR FILTRATION RATE > 60.0 (>58); GLUCOSE, FASTING 147 MG/DL (70-100); POTASSIUM SERUM 3.4 MEQ/L (3.5-5.1); SODIUM LEVEL 139 MEQ/L (136-145); TOTAL PROTEIN 5.8 GM/DL (6.4-8.2)
[2020-03-22 10:00] VITALS: BP 140/93
[2020-03-22 13:59] LABS: ACETONE/KETONE 25.32 MG/DL (<2.81)
[2020-03-22 14:00] VITALS: BP 130/75
[2020-03-22 18:00] VITALS: BP 145/84
[2020-03-22] MEDS: NS 1,000 ML IV SCH (19:15)
--- NOTE | 2020-03-22 19:26 | IPNPDOC ---
Date Seen The patient was seen on 03/22/20. Progress Note SUBJECTIVE: Increased nausea, multiple episodes of hypoglycemia. Started on D5W throughout day and all insulins stopped. Acetone serum much improved. NPO with only ice chips, sips of water to give bowel rest due to gastroparesis acting up. She denies chest pain, shortness of breath, fevers, chills. OBJECTIVE: PHYSICAL EXAM: VS: Please see below General: appears uncomfortable in bed HEENT: no thyromegaly, no carotid bruit Lungs are clear to auscultation. No wheezing, rales or rhonchi. Heart: S1, S2, sinus rhythm. Abdomen: BS + 4 quad, soft, nontender. No rebound or guarding. No costov ertebral angle (CVA) tenderness. Extremities: No cyanosis, clubbing or pitting edema. LABORATORY DATA: See below ASSESSMENT: A 49-year-old with type 1 diabetes, gastroparesis admitted for DKA, gastroparesis. PLAN: DKA 2/2 to uncontrolled DM type I -Improved with episodes of hypoglycemia, increased n/v -AG closed, acetone positive but improved. -MAking NPO, on D5W earlier and later switched to NSS when BS were >150. -Restarted HS levemir at 8 U only -C/w IVFs, ISS, FS q6h, NPO except ice chips Gastroparesis 2/2 to uncontrolled DM type I -+ nausea and dry heaves today, worsened -Restarted reglan IV TID -C/w zofran PRN -NPO over the night and into the AM Acute kidney injury 2/2 to decreased po intake and vomiting w volume loss. ? CKD- resolved -Cr wnl - IVFs , Avoid nephrotoxic meds -F/u Cr in AM. GI px PPI BID DVT px. -enoxaparin DISPOSITION: Plan is discharge home when medically improved. VS, I&O, 24H, Fishbone Vital Signs/I&O Vital Signs Date Time Temp Pulse Resp B/P (MAP) Pulse Ox O2 Delivery O2 Flow Rate FiO2 03/22/20 18:00 98.9 86 17 145/84 (104) 98 Room Air I&O- Last 24 Hours up to 6 AM 03/22/20 06:00 Intake Total 1550 ml Output Total 200 ml Balance 1350 ml Laboratory Data 24H LABS Laboratory Tests 2 03/21/20 21:18: Bedside Glucose (Misc Panel) 42L 03/21/20 21:57: Bedside Glucose (Misc Panel) 39*L 03/21/20 22:31: Bedside Glucose (Misc Panel) 104 03/22/20 06:55: Bedside Glucose (Misc Panel) 45L 03/22/20 07:45: Bedside Glucose (Misc Panel) 99 03/22/20 08:15: Nucleated Red Blood Cells % (auto) 0.0, Anion Gap 10, Glomerular Filtration Rate > 60.0, Calcium Level 8.4L, Total Bilirubin 0.6, Aspartate Amino Transf (AST/SGOT) 10, Alanine Aminotransferase (ALT/SGPT) 14, Alkaline Phosphatase 54, Total Protein 5.8L, Albumin 3.1L, Albumin/Globulin Ratio 1.1L, B-Hydroxybutyrate 25.32H 03/22/20 11:15: Bedside Glucose (Misc Panel) 169H 03/22/20 16:30: Bedside Glucose (Misc Panel) 199H CBC/BMP Laboratory Tests 03/22/20 08:15 Microbiology Microbiology 03/17/20 Urine Culture - Final, Complete Current Medications Current Medications Medications (Trade) Dose Ordered Sig/Skinny Route PRN Reason Start Time Stop Time Status Last Admin Dose Admin Acetaminophen (Tylenol Tab) 650 mg Q4H PRN PO PAIN OR FEVER 03/17/20 23:45 Dextrose (Dextrose 50%) 25 ml ASDIRECTED PRN IV SEE LABEL COMMENTS 03/17/20 23:45 03/21/20 22:08 Dextrose/Sodium Chloride 1,000 ml @ 100 mls/hr Q10H IV 03/22/20 08:15 03/22/20 19:14 DC 03/22/20 08:44 Enoxaparin Sodium (Lovenox) 40 mg DAILY SC 03/18/20 09:00 03/22/20 08:46 Glucagon (Glucagon) 1 mg ASDIRECTED PRN SC SEE LABEL COMMENTS 03/17/20 23:45 Glucose (Glucose) 16 GM ASDIRECTED PRN PO SEE LABEL COMMENTS 03/17/20 23:45 Home Med (Med Rec Complete!) ASDIRECTED XX 03/17/20 21:00 03/17/20 20:50 DC Insulin Detemir (Levemir Insulin) 10 units QAM SC 03/21/20 09:00 03/21/20 19:39 DC 03/21/20 10:16 Insulin Detemir (Levemir Insulin) 10 units QHS ME 03/17/20 21:00 03/20/20 19:13 DC Insulin Detemir (Levemir Insulin) 10 units QHS ME 03/22/20 21:00 Insulin Detemir (Levemir Insulin) 15 units QHS ME 03/20/20 21:00 03/21/20 08:23 DC Insulin Detemir (Levemir Insulin) 20 units QHS ME 03/21/20 21:00 03/22/20 08:15 DC Insulin Human Lispro (HumaLOG INSULIN) SEE PROTOCOL TABLE AC ME 03/18/20 07:30 03/22/20 17:30 Insulin Human Lispro (HumaLOG INSULIN) [facility] 03/18/20 21:00 Magnesium Hydroxide (Milk Of Magnesia) 30 ml Q4HP PRN PO CONSTIPATION 03/18/20 10:45 Metoclopramide HCl (REGLAN INJection) 10 mg ACHS IV 03/18/20 07:30 03/20/20 19:13 DC 03/19/20 09:57 Metoclopramide HCl (REGLAN INJection) 10 mg Q6HP PRN IV NAUSEA 03/21/20 13:00 03/22/20 08:16 DC 03/21/20 22:57 Metoclopramide HCl (REGLAN INJection) 10 mg TID IV 03/22/20 09:00 03/22/20 08:45 Morphine Sulfate (Msir) 15 mg Q6H PO 03/18/20 12:00 03/20/20 19:13 DC 03/20/20 05:10 Naloxone HCl (Narcan) 0.1 mg Q5MP PRN IV RESP. RATE < 10 03/18/20 10:45 Ondansetron HCl (ZOFRAN INJection) 4 mg Q4HP PRN IV NAUSEA OR VOMITING 03/22/20 09:00 03/22/20 13:06 Ondansetron HCl (Zofran Odt) 4 mg Q6HP PRN PO NAUSEA OR VOMITING 03/18/20 03:30 03/22/20 08:16 DC 03/21/20 08:10 Pantoprazole Sodium (Protonix) 40 mg BID IV 03/18/20 09:00 03/22/20 08:45 Potassium Chloride/Dextrose/ Sod Cl 1,000 ml @ 125 mls/hr Q8H IV 03/18/20 00:00 03/18/20 00:13 DC Potassium Chloride/Sodium Chloride 1,000 ml @ 125 mls/hr Q8H IV 03/18/20 00:15 03/18/20 07:06 DC 03/18/20 00:47 Promethazine HCl (PHENERGAN INJection) 25 mg Q6H IV 03/18/20 09:00 03/19/20 07:45 DC 03/18/20 08:50 Promethazine HCl (PHENERGAN INJection) 25 mg Q6H PRN IV NAUSEA 03/19/20 07:45 03/20/20 19:13 DC 03/20/20 04:00 Senna/Docusate Sodium (Senokot S) 2 tab BIDP PRN PO CONSTIPATION 03/18/20 10:45 Simethicone (Mylicon) 120 mg QID PO 03/17/20 21:00 03/21/20 08:06 Sodium Chloride 1,000 ml @ 100 mls/hr Q10H IV 03/21/20 08:30 03/22/20 08:14 DC 03/21/20 18:30 Sodium Chloride 1,000 ml @ 100 mls/hr Q10H IV 03/22/20 19:15 Allergies Coded Allergies: No Known Allergies (Verified , 11/30/19) Laurence Tompkins MD Mar 22, 2020 19:26
[2020-03-22] MEDS ORDERED: LEVEMIR (INSULIN DETEMIR) 1 UNITS/0.01ML SC SCH ×2 (21:00)
[2020-03-22 22:00] VITALS: BP 126/79
[2020-03-23] MEDS: NS 1,000 ML IV SCH (05:15)
[2020-03-23 06:00] VITALS: BP 126/78
[2020-03-23 06:45] LABS: HEMATOCRIT 26.3 % (36.0-47.0); HEMOGLOBIN 8.6 g/dl (12.0-15.5); MEAN CORPUSCULAR HEMOGLOBIN 27.7 pg (27.0-33.0); MEAN CORPUSCULAR HGB CONC 32.7 g/dl (32.0-36.5); MEAN CORPUSCULAR VOLUME 84.6 fl (80.0-96.0); PLATELET COUNT, AUTOMATED 218 10^3/uL (150-450); RED BLOOD COUNT 3.11 10^6/uL (4.00-5.40); WHITE BLOOD COUNT 5.7 10^3/uL (4.0-10.0)
[2020-03-23 07:28] LABS: ACETONE/KETONE > 46.00 MG/DL (<2.81); ALBUMIN 3.4 GM/DL (3.2-5.2); ALT/SGPT 17 U/L (12-78); BILIRUBIN,TOTAL 0.4 MG/DL (0.2-1.0); BLOOD UREA NITROGEN 8 MG/DL (7-18); CALCIUM LEVEL 8.5 MG/DL (8.5-10.1); CARBON DIOXIDE LEVEL 19 MEQ/L (21-32); CHLORIDE LEVEL 103 MEQ/L (98-107); CREATININE FOR GFR 1.16 MG/DL (0.55-1.30); GLOMERULAR FILTRATION RATE > 60.0 (>58); GLUCOSE, FASTING 297 MG/DL (70-100); POTASSIUM SERUM 4.1 MEQ/L (3.5-5.1); SODIUM LEVEL 134 MEQ/L (136-145); TOTAL PROTEIN 6.2 GM/DL (6.4-8.2)
[2020-03-23] MEDS: HumaLOG INSULIN (NovoLOG) PER UNIT SC SCH (07:59)
[2020-03-23] MEDS: ENOXAPARIN 40MG/0.4ML SYRINGE (J1650 PER 10MG) SC SCH (09:00)
[2020-03-23] MEDS: SIMETHICONE 80 MG CHEW TAB PO SCH (09:00)
[2020-03-23] MEDS: ONDANSETRON 4MG/2ML VIAL IV PRN (10:01)
[2020-03-23] MEDS: PANTOPRAZOLE 40MG VIAL (C9113 PER 1) IV SCH (10:01)
[2020-03-23] MEDS: METOCLOPRAMIDE INJ 10MG/2ML VIAL (J2765 PER 1) IV SCH (10:02)
--- NOTE | 2020-03-23 13:36 | DS.PDOC ---
Discharge Summary General Date of Admission Mar 17, 2020 at 23:36 Date of Discharge 03/22/20 Attending Physician: Laurence Tompkins MD Discharge Summary HPI: Ms. Parks is here for her eighth admission this year. Most recent admission was 02/17/2020. She reports about 2 days ago she started vomiting again. At that point she noted her blood sugars were running quite high around 300. Over the next couple days her nausea and vomiting only became worse and her blood sugars drifted up into the 400s. She feels that her blood sugars have been more poorly controlled since the formulation of her insulin was changed after the last hospitalization. She reports she has discussed this with Dr. Russell, but he suggests she gives a little longer. Patient was admitted for treatment of DKA. HOSPITAL COURSE: Patient's blood sugar steadily improved. She was treated with zofran, reglan and bowel rest for gastroparesis concomitantly. She improved gradually and was restarted on insulins, consistent carb diet. She developed increased serum acetone and hyperglycemia, n/v, prompting increased insulin dosing. She had episodes of hypoglycemia during her hospitalizations due to fluctuating PO intake. She was later started on normal HS levemir and diet was advanced. Finally on 03/23/20 patient was discharged in improved condition to follow up closely with her PCP. She denies abdominal pain, fevers, nausea, vomiting, chills, chest pain or shortness of breath. PMH: Type 1 diabetes, diagnosed at 32 years of age Chronic kidney disease, stage III Suspected gastroparesis related to diabetes PSURGHX: D&C, 2003 FHx: Her father is alive, 69 years old, no known medical problems Her mother is alive, 70 years old, diabetes and "bad heart" Brothers (3): No known medical problems Sister (1): Hypertension Sons (2): No known medical problems Daughters (2): No known medical problems SOCIAL HISTORY: Smoker: former Smoker (quit in 2019, had accrued a 4 year pack history by then) Alcohol: Denies Drugs: marijuana (occasionally to help with her appetite, she reports she last smoked marijuana about one week ago) DISCHARGE MEDS: Please see below PHYSICAL EXAM: VS: Please see below General: NAD, resting in bed HEENT: no thyromegaly, no carotid bruit Lungs are clear to auscultation. No wheezing, rales or rhonchi. Heart: S1, S2, sinus rhythm. Abdomen: BS + 4 quad, soft, nontender. No rebound or guarding. No costovertebral angle (CVA) tenderness. Extremities: No cyanosis, clubbing or pitting edema. LABORATORY DATA: See below ASSESSMENT: A 49-year-old with type 1 diabetes, gastroparesis admitted for DKA, gastroparesis. PLAN: DKA 2/2 to uncontrolled DM type I- resolved -Improved n/v, BS controlled -AG closed -Consistent carb diet -Encouraging her to c/w home regimen, f/u with PCP closely. Gastroparesis 2/2 to uncontrolled DM type I -No n/v this AM -Recommending continued use of reglan PRN -Will need o/p w/u of gastroparesis GI px PPI BID DVT px. -enoxaparin Resolved issues: Acute kidney injury 2/2 to decreased po intake and vomiting w volume loss. DISPOSITION: Plan is discharge home today with f/u with PCP TIME SPENT ON DISCHARGE: Greater than 30 minutes. Vital Signs/I&Os Vital Signs Date Time Temp Pulse Resp B/P (MAP) Pulse Ox O2 Delivery O2 Flow Rate FiO2 03/23/20 06:00 99.0 91 17 126/78 (94) 100 Room Air I&O- Last 24 Hours up to 6 AM 03/23/20 06:00 Intake Total 690 ml Output Total 400 ml Balance 290 ml Laboratory Data Labs 24H Laboratory Tests 2 03/22/20 16:30: Bedside Glucose (Misc Panel) 199H 03/22/20 20:46: Bedside Glucose (Misc Panel) 209H 03/22/20 23:52: Bedside Glucose (Misc Panel) 176H 03/23/20 02:09: Bedside Glucose (Misc Panel) 198H 03/23/20 05:08: Bedside Glucose (Misc Panel) 279H 03/23/20 06:02: Nucleated Red Blood Cells % (auto) 0.0, Anion Gap 12, Glomerular Filtration Rate > 60.0, Calcium Level 8.5, Total Bilirubin 0.4, Aspartate Amino Transf (AST/SGOT ) 13, Alanine Aminotransferase (ALT/SGPT) 17, Alkaline Phosphatase 57, Total Protein 6.2L, Albumin 3.4, Albumin/Globulin Ratio 1.2, B-Hydroxybutyrate > 46.00H 03/23/20 09:53: Bedside Glucose (Misc Panel) 215H CBC/BMP Laboratory Tests 03/23/20 06:02 FSBS Laboratory Tests Test 03/22/20 16:30 03/22/20 20:46 03/22/20 23:52 03/23/20 02:09 Range/Units Bedside Glucose (Misc Panel) 199 209 176 198 70-105 MG/DL Test 03/23/20 05:08 03/23/20 09:53 Range/Units Bedside Glucose (Misc Panel) 279 215 70-105 MG/DL Microbiology Microbiology 03/17/20 Urine Culture - Final, Complete Discharge Medications Scheduled Insulin Glargine,Hum.rec.anlog (Basaglar Kwikpen U-100) 100 Unit/1 Ml Insuln.pen, 10 UNIT SC QHS Insulin Human Regular (Novolin R) 100 Unit/1 Ml Vial, 1 DOSE SC ACHS, (Reported) SLIDING SCALE Scheduled PRN Metoclopramide Hcl (Reglan) 5 Mg Tablet, 5 MG PO TIDP PRN for NAUSEA Ondansetron (Ondansetron Odt) 4 Mg Tab.rapdis, 4 MG PO Q6-8HP PRN for NAUSEA OR VOMITING, (Reported) Allergies Coded Allergies: No Known Allergies (Verified , 11/30/19) Laurence Tompkins MD Mar 23, 2020 13:35
== END 2020-03-23 11:55 | disposition home or self-care (01) | DRG 420 ==
LOC: EDBD 12:07 → M ED 12:07 → M ED INP 23:36 → M PCU 03-18 06:52 → M MS5PR 03-18 10:44
PROVIDERS: ADMIT Family Medicine; ATTEND Internal Medicine
DX: E10.10 Type 1 diabetes mellitus with ketoacidosis without coma (principal); N17.9 Acute kidney failure, unspecified; N18.30 Chronic kidney disease, stage 3 unspecified; E10.43 Type 1 diabetes mellitus with diabetic autonomic (poly)neuropathy; E10.22 Type 1 diabetes mellitus with diabetic chronic kidney disease; E10.649 Type 1 diabetes mellitus with hypoglycemia without coma; E10.65 Type 1 diabetes mellitus with hyperglycemia; Z79.4 Long term (current) use of insulin

== ENCOUNTER 2020-05-19 10:26 | Emergency (ER) | payer OTHER ==
[~2020-05-19] VITALS: Ht 170.2 cm; Wt 83.0 kg
[~2020-05-19 10:26] MED LIST changes: +MAGN400T35 PO
--- OUTSIDE RECORDS SUMMARY | 2020-05-19 10:31 | CCD ---
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 Active Not available Basaglar KwikPen U-100 Insulin 100 unit/mL (3 mL) subcutaneous A ctive Not available BD Insulin Syringe Ultra-Fine 0.5 mL 31 gauge x 5/16" USE WITH INSULIN BEFORE MEALS AND AT BEDTIME Active Not available BD Ultra-Fine Short Pen Needle 31 gauge x 5/16" USE DIRECTED WITH BASAGLAR ONCE DAILY AT BEDTIME Active Not available Humulin R Regular U-100 Insulin 100 unit /mL injection solution INJECT SUBCUTANEOUSLY BEFORE MEALS AND AT BEDTIME PER SLIDING SCALE MAXIMUM DAILY DOSE 50 UNITS Active Not available metoclopramide 10 mg tablet Completed 02/04 metoclopramide 5 mg tablet TAKE ONE TABLET BY MOUTH EVERY DAY BEFORE MEALS AND AT BEDTIME Completed 02/23/2020 omeprazole 20 mg capsule,delayed release TAKE ONE CAPSULE BY MOUTH TWICE A DAY Completed 04/24/2019 ondansetron 4 mg disintegrating tablet DISSOLVE ONE TABLET ON TONGUE EVERY 6 TO 8 HOURS NEEDED FOR NAUSEA AND VOMITING Active Not available ondansetron HCl 4 mg tablet Completed 02/04 OneTouch Delica Plus Lancet 33 gauge Active Not available OneTouch Verio Flex Meter USE DIRECTED TO TEST BLOOD SUGAR Active Not available OneTouch Verio test strips Active Not a vailable oxycodone 5 mg tablet Completed 02/23/2020 penicillin V potassium 500 mg tablet TAKE ONE TABLET BY MOUTH TWICE A DAY Completed prochlorperazine 25 mg rectal suppositor y INSERT ONE SUPPOSITORY RECTALLY EVERY 8 HOURS NEEDED FOR NAUSEA Completed 02/23/2020 Problems Name Status Onset Date Source Type 1 Diabetes Mellitus without Complication Active History Procedures None recorded. Results Lab Results Date Name Specimen Result Interpretation Description Value Range Status Address 02/19/2020 Cbc Normal White Blood Count 5.8 10 4.0-10. 0 10 [facility]: [address] [place] [address] Low Red Blood Count 3.11 10 4.00-5.40 10 [facility]: [address] [place] [address] Low Hemoglobin 8.5 g/dL 12.0-15.5 g/dL [facility]: [address] [place] [address] Low Hematocrit 26.6 % 36.0-47.0 % [facility]: [address] [place] [address] Normal Mean Corpuscular Volume 85.5 fL 80.0 -96.0 fL [facility]: [address] [place] [address] Normal Mean Corpuscular Hemoglobin 27.3 pg 27.0-33.0 pg [facility]: [address] [place] [address] Normal Mean Corpuscular HGB Conc 32.0 g/dL 32.0-36.5 g/dL [facility]: [address] [place] [address] High Red Cell Distribution Width 14.7 % 1 1.5-14.5 % [facility]: [address] [place] [address] Normal Platelet Count, Automated 256 10 150 -450 10 [facility]: [address] [place] [address] Normal Nucleated Red Blood Cell % 0.0 % 0- 0 % [facility]: [address] [place] [address] 02/19/2020 BMP, Serum or Plasma High Glucose, Fastin g 139 mg/dL 70-100 mg/dL [facility]: [address] [facility] High Blood Urea Nitrogen 21 mg/dL 7-18 mg /dL [facility]: [address] [place] [address] Normal Creatinine for GFR 1.14 mg/dL 0.55-1 .30 mg/dL [facility]: [address] [place] [address] Normal Glomerular Filtration Rate > 60.0 >5 8 [facility]: [address] [place] [address] Normal Sodium Level 138 mEq/L 136-145 mEq/L [facility]: [address] [facility] Normal Potassium Serum 3.6 mEq/L 3.5-5.1 mE q/L [facility]: [address] [facility] High Chloride Level 109 mEq/L 98-107 mEq/ L [facility]: [address] [facility] Normal Carbon Dioxide Level 25 mEq/L 21-32 mEq/L [facility]: [address] [facility] Low Anion Gap 4 mEq/L 8-16 mEq/L [facility]: [address] [facility] Low Calcium Level 8.4 mg/dL 8.5-10.1 mg/ dL [facility]: [address] [facility] 02/19/2020 Glucose, Fingerstick, Blood High Bedside Glucose 180 mg/dL 70- 105 mg/dL [facility]: [address] 0 [facility] 02/18/2020 Glucose, Fingerstick, Blood High Bedside Glucose 162 mg/dL 70- 105 mg/dL [facility]: [address] 0 [facility] 02/18/2020 Glucose, Fingerstick, Blood High Bedside Glucose 139 mg/dL 70- 105 mg/dL [facility]: [address] 0 [facility] 02/18/2020 Glucose, Fingerstick, Blood High Bedside Glucose 135 mg/dL 70- 105 mg/dL [facility]: [address] 0 [facility] 02/18/2020 BMP, Serum or Plasma High Glucose, Fastin g 135 mg/dL 70-100 mg/dL [facility]: [address] 0 [facility] High Blood Urea Nitrogen 41 mg/dL 7-18 mg /dL [facility]: [address] [facility] High Creatinine for GFR 1.64 mg/dL 0.55-1 .30 mg/dL [facility]: [address] [facility] Low Glomerular Filtration Rate 43.3 >5 8 [facility]: [address] [facility] Normal Sodium Level 139 mEq/L 136-145 mEq/L [facility]: [address] [facility] Normal Potassium Serum 3.7 mEq/L 3.5-5.1 mE q/L [facility]: [address] [facility] Normal Chloride Level 107 mEq/L 98-107 mEq/ L [facility]: [address] [facility] Normal Carbon Dioxide Level 25 mEq/L 21-32 mEq/L [facility]: [address] [facility] Low Anion Gap 7 mEq/L 8-16 mEq/L [facility]: [address] [facility] Low Calcium Level 8.2 mg/dL 8.5-10.1 mg/ dL [facility]: [address] [facility] 02/18/2020 Phosphorus Level Panic Low Phosphorus Level 2.1 mg/dL 2.5-4.9 mg/dL [facility]: [address] 0 [facility] 02/18/2020 Glucose, Fingerstick, Blood High Bedside Glucose 133 mg/dL 70- 105 mg/dL [facility]: [address] 0 [facility] 02/18/2020 Glucose, Fingerstick, Blood Normal Bedside Glucose 101 mg/dL 70-105 mg/dL [facility]: [address] 0 [facility] 02/18/2020 Glucose, Fingerstick, Blood Normal Bedside Glucose 82 mg/dL 70- 105 mg/dL [facility]: [address] 0 [facility] 02/18/2020 Glucose, Fingerstick, Blood High Bedside Glucose 122 mg/dL 70- 105 mg/dL [facility]: [address] 0 [facility] 02/18/2020 Cbc Normal White Blood Count 6.9 10 4.0-10. 0 10 [facility]: [address] [facility] Low Red Blood Count 3.39 10 4.00-5.40 10 [facility]: [address] [facility] Low Hemoglobin 9.6 g/dL 12.0-15.5 g/dL [facility]: [address] [facility] Low Hematocrit 28.7 % 36.0-47.0 % [facility]: [address] [facility] Normal Mean Corpuscular Volume 84.7 fL 80.0 -96.0 fL [facility]: [address] [facility] Normal Mean Corpuscular Hemoglobin 28.3 pg 27.0-33.0 pg [facility]: [address] [facility] Normal Mean Corpuscular HGB Conc 33.4 g/dL 32.0-36.5 g/dL [facility]: [address] [facility] High Red Cell Distribution Width 14.8 % 1 1.5-14.5 % [facility]: [address] [facility] Normal Platelet Count, Automated 300 10 150 -450 10 [facility]: [address] [facility] Normal Nucleated Red Blood Cell % 0.0 % 0- 0 % [facility]: [address] [facility] 02/18/2020 Glucose, Fingerstick, Blood High Bedside Glucose 156 mg/dL 70- 105 mg/dL [facility]: [address] 0 [facility] 02/18/2020 BMP, Serum or Plasma High Glucose, Fastin g 137 mg/dL 70-100 mg/dL [facility]: [address] 0 [facility] High Blood Urea Nitrogen 36 mg/dL 7-18 mg /dL [facility]: 0 [facility] High Creatinine for GFR 1.35 mg/dL 0.55-1 .30 mg/dL [facility]: 0 [facility] Low Glomerular Filtration Rate 54.2 >5 8 [facility]: [address] [facility] Normal Sodium Level 140 mEq/L 136-145 mEq/L [facility]: 0 [facility] Normal Potassium Serum 4.2 mEq/L 3.5-5.1 mE q/L [facility]: 0 [facility] High Chloride Level 109 mEq/L 98-107 mEq/ L [facility]: [address] [facility] Normal Carbon Dioxide Level 23 mEq/L 21-32 mEq/L [facility]: [address] [facility] Normal Anion Gap 8 mEq/L 8-16 mEq/L [facility]: [address] [facility] Low Calcium Level 8.4 mg/dL 8.5-10.1 mg/ dL [facility]: [address] [facility] 02/18/2020 Phosphorus Level Low Phosphorus Level 2 .0 mg/dL 2.5-4.9 mg/dL [facility]: [address] [facility] 02/18/2020 Glucose, Fingerstick, Blood High Bedside Glucose 123 mg/dL 70- 105 mg/dL [facility]: [address] 0 [facility] 02/18/2020 Glucose, Fingerstick, Blood High Bedside Glucose 112 mg/dL 70- 105 mg/dL [facility]: [address] 0 [facility] 02/18/2020 BMP, Serum or Plasma High Glucose, Fastin g 199 mg/dL 70-100 mg/dL [facility]: [address] 0 [facility] High Blood Urea Nitrogen 32 mg/dL 7-18 mg /dL [facility]: [address] [facility] High Creatinine for GFR 1.38 mg/dL 0.55-1 .30 mg/dL [facility]: 0 [facility] Low Glomerular Filtration Rate 52.9 >5 8 [facility]: [address] [facility] Normal Sodium Level 139 mEq/L 136-145 mEq/L [facility]: [address] [facility] Normal Potassium Serum 3.8 mEq/L 3.5-5.1 mE q/L [facility]: [address] [facility] High Chloride Level 109 mEq/L 98-107 mEq/ L [facility]: [address] [facility] Normal Carbon Dioxide Level 25 mEq/L 21-32 mEq/L [facility]: [address] [facility] Low Anion Gap 5 mEq/L 8-16 mEq/L [facility]: [address] [facility] Low Calcium Level 8.2 mg/dL 8.5-10.1 mg/ dL [facility]: [address] [facility] 02/18/2020 Phosphorus Level Panic Low Phosphorus Level 1.4 mg/dL 2.5-4.9 mg/dL Final [facility]: [address] 0 [facility] 02/18/2020 Glucose, Fingerstick, Blood High Bedside Glucose 182 mg/dL 70- 105 mg/dL [facility]: [address] 0 [facility] 02/18/2020 Glucose, Fingerstick, Blood High Bedside Glucose 199 mg/dL 70- 105 mg/dL [facility]: [address] 0 [facility] 02/18/2020 Glucose, Fingerstick, Blood High Bedside Glucose 112 mg/dL 70- 105 mg/dL Final [facility]: [address] 0 [facility] 02/18/2020 Glucose, Fingerstick, Blood Low Bedside Glucose 40 mg/dL 70-105 mg/dL [facility]: [address] 0 [facility] 02/18/2020 Glucose, Fingerstick, Blood Low Bedside Glucose 67 mg/dL 70-105 mg/dL [facility]: [address] 0 [facility] 02/17/2020 Istat Chem8+ Panel Low Istat HCT 37.0 % 38. 0-51.0 % [facility]: [address] [facility] High Istat Glucose 359 mg/dL 70-105 mg/dL [facility]: [address] [facility] Low Istat Sodium 127 mEq/L 136-145 mEq/L [facility]: [address] [facility] Panic High Istat Potassium 7.8 mEq/L 3.5-5. 1 mEq/L [facility]: [address] [facility] Low Istat Ca++ 3.8 mg/dL 4.5-5.3 mg/dL [facility]: [address] [facility] Low Istat Chloride 96 mEq/L 98-109 mEq/L [facility]: [address] [facility] Low Istat CO2 21.0 mm/L 23.0-27.0 mm/L [facility]: [address] [facility] High Istat BUN 70 mg/dL 8-26 mg/dL [facility]: [address] [facility] High Istat Creatinine 1.6 mg/dL 0.6-1.3 m g/dL [facility]: [address] [facility] 02/17/2020 Venous Blood Gas Normal Venous pH 7.371 un its 7.330-7.430 units [facility]: [address] 0 [facility] Low Venous Partial Pressure CO2 30.6 mmH g 38.0-50.0 mmHg [facility]: [address] [facility] High Venous Partial Pressure O2 83.8 mmHg 30.0-50.0 mmHg [facility]: 0 [facility] Low Venous Total CO2 18.3 mEq/L 24.0-28. 0 mEq/L [facility]: [address] [facility] Low Venous HCO3 17.3 mEq/L 23.0-27.0 mEq /L [facility]: [address] [facility] Low Venous Base Excess -6.8 -2.0-2.0 [facility]: [address] [facility] Normal Venous Standard HCO3 18.9 mEq/L [facility]: [address] [facility] High Venous O2 Saturation 96.0 % 60.0-80. 0 % [facility]: [address] [facility] 02/17/2020 CBC W/ Auto Diff Normal White Blood Count 9.6 10 4.0-10.0 10 [facility]: [address] [facility] Low Red Blood Count 3.98 10 4.00-5.40 10 [facility]: [address] [facility] Low Hemoglobin 11.0 g/dL 12.0-15.5 g/dL [facility]: 0 [facility] Low Hematocrit 33.8 % 36.0-47.0 % [facility]: 0 [facility] Normal Mean Corpuscular Volume 84.9 fL 80.0 -96.0 fL [facility]: [address] [facility] Normal Mean Corpuscular Hemoglobin 27.6 pg 27.0-33.0 pg Final [facility]: [address] [facility] Normal Mean Corpuscular HGB Conc 32.5 g/dL 32.0-36.5 g/dL [facility]: [address] [facility] High Red Cell Distribution Width 15.0 % 1 1.5-14.5 % [facility]: [address] [place] [address] Normal Platelet Count, Automated 333 10 150 -450 10 [facility]: 0 [facility] High Neutrophils % 78.2 % 36.0-66.0 % [facility]: [address] [facility] Low Lymph % 14.8 % 24.0-44.0 % [facility]: [address] [facility] High [place] % 6.1 % 0.0-5.0 % [facility]: [address] [facility] Normal Eos % 0.1 % 0.0-3.0 % [facility]: 0 [facility] Normal Baso % 0.5 % 0.0-1.0 % [facility]: 0 [facility] Normal Immature Granulocyte % 0.3 % 0-3.0 % [facility]: [address] [facility] Normal Nucleated Red Blood Cell % 0.0 % 0- 0 % [facility]: [address] [facility] Normal Neutrophils # 7.5 10 1.5-8.5 10 [facility]: 0 [facility] Low Lymph # 1.4 10 1.5-5.0 10 [facility]: [address] [facility] Normal [place] # 0.6 10 0.0-0.8 10 [facility]: [address] [facility] Normal Eos # 0.0 10 0.0-0.5 10 [facility]: [address] [facility] Normal Baso # 0.1 10 0.0-0.2 10 [facility]: [address] [facility] 02/17/2020 Venous Blood Gas Normal Venous pH 7.371 un its 7.330-7.430 units [facility]: [address] 0 [facility] Low Venous Partial Pressure CO2 30.6 mmH g 38.0-50.0 mmHg [facility]: [address] [facility] High Venous Partial Pressure O2 83.8 mmHg 30.0-50.0 mmHg [facility]: [address] [facility] Low Venous Total CO2 18.3 mEq/L 24.0-28. 0 mEq/L [facility]: [address] [facility] Low Venous HCO3 17.3 mEq/L 23.0-27.0 mEq /L [facility]: [address] [facility] Low Venous Base Excess -6.8 -2.0-2.0 [facility]: [address] [facility] Normal Venous Standard HCO3 18.9 mEq/L [facility]: [address] [facility] High Venous O2 Saturation 96.0 % 60.0-80. 0 % [facility]: [address] [facility] 02/17/2020 HbA1C (Hemoglobin a1C), Blood Normal Hemogl obin a1C 8.5 % [facility]: [address] [facility] High Estimated Average Glucose 197 mg/dL 60-110 mg/dL [facility]: [address] [facility] 02/17/2020 COVID-19 RNA (SARS-CoV-2), QL, molder foam rubber-PCR, Respirat ory Specimen Normal Sars Covid-19 Amplification negative negative [facility]: [address] [facility] 02/17/2020 Hepatic Function Panel, Serum Normal AST/SG OT 22 U/L 7-37 U/L [facility]: [address] [facility] Normal ALT/SGPT 18 U/L 12-78 U/L [facility]: [address] [facility] Normal Alkaline Phosphatase 79 U/L 45-117 U /L [facility]: [address] [facility] Normal Bilirubin,total 1.0 mg/dL 0.2-1.0 mg /dL [facility]: [address] [facility] Normal Bilirubin,direct 0.2 mg/dL 0.0-0.2 m g/dL [facility]: [address] [facility] Normal Total Protein 8.2 gm/dL 6.4-8.2 gm/d L [facility]: [address] [facility] Normal Albumin 4.3 gm/dL 3.2-5.2 gm/dL [facility]: 0 [facility] Low Albumin/globulin Ratio 1.1 1.2-2. 2 [facility]: 0 [facility] 02/17/2020 BMP, Serum or Plasma High Glucose, Fastin g 337 mg/dL 70-100 mg/dL [facility]: [address] 0 [facility] High Blood Urea Nitrogen 49 mg/dL 7-18 mg /dL [facility]: 0 [facility] High Creatinine for GFR 1.73 mg/dL 0.55-1 .30 mg/dL [facility]: [address] [place] [address] Low Glomerular Filtration Rate 40.7 >5 8 [facility]: [address] [facility] Low Sodium Level 132 mEq/L 136-145 mEq/L [facility]: [address] [facility] Normal Potassium Serum 4.1 mEq/L 3.5-5.1 mE q/L [facility]: [address] [facility] Low Chloride Level 95 mEq/L 98-107 mEq/L [facility]: 0 [facility] Low Carbon Dioxide Level 17 mEq/L 21-32 mEq/L [facility]: 0 [facility] High Anion Gap 20 mEq/L 8-16 mEq/L [facility]: [address] [facility] Normal Calcium Level 9.5 mg/dL 8.5-10.1 mg/ dL [facility]: [address] [facility] 02/17/2020 Acetone/ketone High Acetone/ketone > 46. 00 mg/dL <2.81 mg/dL [facility]: [address] [facility] 02/17/2020 Lipase, Serum or Plasma Low Lipase 68 U/L 7 3-393 U/L [facility]: [address] [facility] 02/17/2020 Osmolality, Serum High Osmolality Serum 311 mOsm/kg 275-295 mOsm/kg [facility]: [address] 0 [facility] 02/17/2020 Glucose, Fingerstick, Blood High Bedside Glucose 327 mg/dL 70- 105 mg/dL [facility]: [address] 0 [facility] 02/17/2020 BMP, Serum or Plasma High Glucose, Fastin g 329 mg/dL 70-100 mg/dL [facility]: [address] 0 [facility] High Blood Urea Nitrogen 50 mg/dL 7-18 mg /dL [facility]: [address] [facility] High Creatinine for GFR 1.77 mg/dL 0.55-1 .30 mg/dL [facility]: 0 [facility] Low Glomerular Filtration Rate 39.7 >5 8 [facility]: [address] [facility] Low Sodium Level 132 mEq/L 136-145 mEq/L [facility]: [address] [facility] Normal Potassium Serum 3.9 mEq/L 3.5-5.1 mE q/L [facility]: [address] [facility] Low Chloride Level 96 mEq/L 98-107 mEq/L [facility]: 0 [facility] Low Carbon Dioxide Level 18 mEq/L 21-32 mEq/L [facility]: [address] [facility] High Anion Gap 18 mEq/L 8-16 mEq/L [facility]: [address] [facility] Normal Calcium Level 8.9 mg/dL 8.5-10.1 mg/ dL [facility]: [address] [facility] 02/17/2020 Phosphorus Level Normal Phosphorus Level 4 .4 mg/dL 2.5-4.9 mg/dL [facility]: [address] 0 [facility] 02/17/2020 BMP, Serum or Plasma High Glucose, Fastin g 314 mg/dL 70-100 mg/dL [facility]: [address] 0 [facility] High Blood Urea Nitrogen 48 mg/dL 7-18 mg /dL [facility]: [address] [facility] High Creatinine for GFR 1.81 mg/dL 0.55-1 .30 mg/dL [facility]: [address] [facility] Low Glomerular Filtration Rate 38.7 >5 8 [facility]: [address] [facility] Low Sodium Level 134 mEq/L 136-145 mEq/L [facility]: [address] [facility] Normal Potassium Serum 3.5 mEq/L 3.5-5.1 mE q/L [facility]: [address] [facility] Normal Chloride Level 98 mEq/L 98-107 mEq/L [facility]: [address] [facility] Low Carbon Dioxide Level 19 mEq/L 21-32 mEq/L [facility]: [address] [facility] High Anion Gap 17 mEq/L 8-16 mEq/L [facility]: [address] [facility] Normal Calcium Level 8.9 mg/dL 8.5-10.1 mg/ dL [facility]: [address] [facility] 02/17/2020 Phosphorus Level Normal Phosphorus Level 4 .3 mg/dL 2.5-4.9 mg/dL [facility]: [address] 0 [facility] 02/17/2020 Glucose, Fingerstick, Blood High Bedside Glucose 191 mg/dL 70- 105 mg/dL [facility]: 83 0 [facility] 02/17/2020 Glucose, Fingerstick, Blood Normal Bedside Glucose 77 mg/dL 70- 105 mg/dL [facility]: 83 0 [facility] 02/17/2020 Glucose, Fingerstick, Blood Normal Bedside Glucose 79 mg/dL 70- 105 mg/dL [facility]: 83 0 [facility] 02/17/2020 Glucose, Fingerstick, Blood Normal Bedside Glucose 103 mg/dL 70-105 mg/dL [facility]: [address] 0 [facility] Past Encounters 02/23/2020 Type 1 Diabetes Mellitus Uncontrolled; Diabetic Ketoacidosis; [facility] Katie Yoo PA-C: [address] [place] [address], Ph. Social History Tobacco Smoking Status Never Smoker Vaccine List None recorded. Plan of Care Reminders Provider Appointments None recorded. Lab None recorded. Referral None recorded. Procedures None recorded. Surgeries None recorded. Imaging None recorded. Vitals Height Weight BMI Blood Pressure 67 in 167 lbs 8 oz 26.2 kg/m2 114/77 mm[Hg]
--- OUTSIDE RECORDS SUMMARY | 2020-05-19 10:31 | CCD ---
Author Author [facility] Organization [facility] Address Unknown Phone Unavailable Care Team Providers Care Services Account Manager Name Role Phone Scordo, M Katie PA Unavailable Unavailable Scordo, M Katie PA Unavailable Unavailable Scordo, M Katie PA Unavailable Unavailable Scordo, M Katie PA Unavailable Unavailable Scordo, M Katie PA Unavailable Unavailable Scordo, M Katie PA Unavailable Unavailable Scordo, M Katie PA Unavailable Unavailable Scordo, M Katie PA Unavailable Unavailable Scordo, M Katie PA Unavailable Unavailable Scordo, M Katie PA Unavailable Unavailable Scordo, M Katie PA Unavailable Unavailable Scordo, M Katie PA Unavailable Unavailable Scordo, M Katie PA Unavailable Unavailable Scordo, M Ktaie PA Unavailable Unavailable Scordo, M Katie PA Unavailable Unavailable Scordo, M Katie PA Unavailable Unavailable Scordo, M Katie PA Unavailable Unavailable Scordo, M Katie PA Unavailable Unavailable Scordo, M Katie PA Unavailable Unavailable Scordo, M Katie PA Unavailable Unavailable Scordo, M Katie PA Unavailable Unavailable Scordo, M Katie PA Unavailable Unavailable Scordo, M Katie PA Unavailable Unavailable Scordo, M Katie PA Unavailable Unavailable Scordo, M Katie PA Unavailable Unavailable Scordo, M Katie PA Unavailable Unavailable Scordo, M Katie PA Unavailable Unavailable Scordo, M Katie PA Unavailable Unavailable Scordo, M Katie PA Unavailable Unavailable Scordo, M Katie PA Unavailable Unavailable Scordo, M Katie PA Unavailable Unavailable Scordo, M Katie PA Unavailable Unavailable Scordo, M Katie PA Unavailable Unavailable Scordo, M Katie PA Unavailable Unavailable Scordo, M Katie PA Unavailable Unavailable Scordo, M Katie PA Unavailable Unavailable Scordo, M Katie PA Unavailable Unavailable Scordo, M Katie PA Unavailable Unavailable Scordo, M Katie PA Unavailable Unavailable Scordo, M Katie PA Unavailable Unavailable Scordo, M Katie PA Unavailable Unavailable Scordo, M Katie PA Unavailable Unavailable Tamia Lopez MD Unavailable Unavailable Tamia Lopez MD Unavailable Unavailable Tamia Lopez MD Unavailable Unavailable Tamia Lopez MD Unavailable Unavailable Tamia Lopez MD Unavailable Unavailable Tamia Lopez MD Unavailable Unavailable Tamia Lopez MD Unavailable Unavailable Tamia Lopez MD Unavailable Unavailable Tamia Lopez MD Unavailable Unavailable Tamia Lopez MD Unavailable Unavailable Tmaia Lopez MD Unavailable Unavailable Tamia Lopez MD Unavailable Unavailable Tamia Lopez MD Unavailable Unavailable Tamia Lopez MD Unavailable Unavailable Tamia Lopez MD Unavailable Unavailable Tamia Lopez MD Unavailable Unavailable Tamia Lopez MD Unavailable Unavailable Tamia Lopez MD Unavailable Unavailable Tamia Lopez MD Unavailable Unavailable Tamia Lopez MD Unavailable Unavailable Tamia Lopez MD Unavailable Unavailable Tamia Lopez MD Unavailable Unavailable Tamia Lopez MD Unavailable Unavailable Tamia Lopez MD Unavailable Unavailable Tamia Lopez MD Unavailable Unavailable Tamia Lopez MD Unavailable Unavailable Tamia Lopez MD Unavailable Unavailable Tamia Lopez MD Unavailable Unavailable Tamia Lopez MD Unavailable Unavailable Tamia Lopez MD Unavailable Unavailable Tamia Lopez MD Unavailable Unavailable Tamia Lopez MD Unavailable Unavailable Tamia Lopez MD Unavailable Unavailable Tamia Lopez MD Unavailable Unavailable Tamia Lopez MD Unavailable Unavailable Tamia Lopez MD Unavailable Unavailable Tamia Lopez MD Unavailable Unavailable Tamia Lopez MD Unavailable Unavailable Tamia Lopez MD Unavailable Unavailable Tamia Lopez MD Unavailable Unavailable Tamia Lopez MD Unavailable Unavailable Tamia Lopez MD Unavailable Unavailable Tamia Lopez MD Unavailable Unavailable Tamia Lopez MD Unavailable Unavailable Tamia Lopez MD Unavailable Unavailable Tamia Lopez MD Unavailable Unavailable Tamia Lopez MD Unavailable Unavailable Tamia Lopez MD Unavailable Unavailable LopezTamia MD Unavailable Unavailable LopezTamia MD Unavailable Unavailable LopezTamia MD Unavailable Unavailable LopezTamia MD Unavailable Unavailable Lopez, Tamia Rosario MD Unavailable Unavailable Lopez, Tamia Rosario MD Unavailable Unavailable Lopez, Tamia Rosario MD Unavailable Unavailable Lopez, Tamia Rosario MD Unavailable Unavailable Lopez, Tamia Rosario MD Unavailable Unavailable Lopez, Tamia Rosario MD Unavailable Unavailable Lopez, Tamia Rosario MD Unavailable Unavailable Lopez, Tamia Rosario MD Unavailable Unavailable Lopez, Tamia Rosario MD Unavailable Unavailable Lopez, Tamia Rosario MD Unavailable Unavailable Lopez, Tamia Rosario MD Unavailable Unavailable Lopez, Tamia Rosario MD Unavailable Unavailable Lopez, Tamia Rosario MD Unavailable Unavailable Lopez, Tamia Rosario MD Unavailable Unavailable LopezTamia MD Unavailable Unavailable LopezTamia MD Unavailable Unavailable Lopez, Tamia Rosario MD Unavailable Unavailable Lopez, Tamia Rosario MD Unavailable Unavailable Lopez, Tamia Rosario MD Unavailable Unavailable Lopez, Tamia Rosario MD Unavailable Unavailable Lopez, Tamia Rosario MD Unavailable Unavailable Lopez, Tamia Rosario MD Unavailable Unavailable Lopez, Tamia Rosario MD Unavailable Unavailable Lopez, Tamia Rosario MD Unavailable Unavailable LopezTamia MD Unavailable Unavailable Lopez, Tamia Rosario MD Unavailable Unavailable LopezTamia MD Unavailable Unavailable LopezTamia MD Unavailable Unavailable LopezTamia MD Unavailable Unavailable LopezTamia MD Unavailable Unavailable LopezTamia MD Unavailable Unavailable LopezTamia MD Unavailable Unavailable LopezTamia MD Unavailable Unavailable LopezTamia MD Unavailable Unavailable LopezTamia MD Unavailable Unavailable LopezTamia MD Unavailable Unavailable LopezTamia MD Unavailable Unavailable Lewis, K Jennifer MD Unavailable Unavailable Lewis, K Jennifer MD Unavailable Unavailable Lewis, K Jennifer MD Unavailable Unavailable Lewis, K Jennifer MD Unavailable Unavailable Lewis, K Jennifer MD Unavailable Unavailable Lewis, K Jennifer MD Unavailable Unavailable Lewis, K Jennifer MD Unavailable Unavailable Lewis, K Jennifer MD Unavailable Unavailable Lewis, K Jennifer MD Unavailable Unavailable Lewis, K Jennifer MD Unavailable Unavailable Lewis, K Jennifer MD Unavailable Unavailable Lewis, K Jennifer MD Unavailable Unavailable Lewis, K Jeninfer MD Unavailable Unavailable Lewis, K Jennifer MD Unavailable Unavailable Lewis, K Jennifer MD Unavailable Unavailable Lewis, K Jennifer MD Unavailable Unavailable Lewis, K Jennifer MD Unavailable Unavailable Lewis, K Jennifer MD Unavailable Unavailable Lewis, K Jennifer MD Unavailable Unavailable Lewis, K Jennifer MD Unavailable Unavailable Lewis, K Jennifer MD Unavailable Unavailable Lewis, K Jennifer MD Unavailable Unavailable Lewis, K Jennifer MD Unavailable Unavailable Lewis, K Jennifer MD Unavailable Unavailable Lewis, K Jennifer MD Unavailable Unavailable Lewis, K Jennifer MD Unavailable Unavailable Lewis, K Jennifer MD Unavailable Unavailable Lewis, K Jennifer MD Unavailable Unavailable Lewis, K Jennifer MD Unavailable Unavailable Lewis, K Jennifer MD Unavailable Unavailable Lewis, K Jennifer MD Unavailable Unavailable Lewis, K Jennifer MD Unavailable Unavailable Lewis, K Jennifer MD Unavailable Unavailable Lewis, K Jennifer MD Unavailable Unavailable Lewis, K Jennifer MD Unavailable Unavailable Re-disclosure Warning The records that you are about to access may contain information from federally-assisted alcohol or drug abuse programs. If such information is present, then the following federally mandated warning applies: This information has been disclosed to you from records protected by federal confidentiality rules (42 CFR part 2). The federal rules prohibit you from making any further disclosure of this information unless further disclosure is expressly permitted by the written consent of the person to whom it pertains or as otherwise permitted by 42 CFR part 2. A general authorization for the release of medical or other information is NOT sufficient for this purpose. The Federal rules restrict any use of the information to criminally investigate or prosecute any alcohol or drug abuse patient.The records that you are about to access may contain highly sensitive health information, the redisclosure of which is protected by Article 27-F of the [facility] Public Health law. If you continue you may have access to information: Regarding HIV / AIDS; Provided by facilities licensed or operated by the [facility] Office of Mental Health; or Provided by the [facility] Office for People With Developmental Disabilities. If such information is present, then the following [facility] mandated warning applies: This information has been disclosed to you from confidential records which are protected by state law. State law prohibits you from making any further disclosure of this information without the specific written consent of the person to whom it pertains, or as otherwise permitted by law. Any unauthorized further disclosure in violation of state law may result in a fine or mcc sentence or both. A general authorization for the release of medical or other information is NOT sufficient authorization for further disc losure. Encounters Encounter Providers Location Date Indications Data Source(s ) Katie Yoo PA-C: [address] [place] [id number], Ph. Attender: Katie CORONA - [facility] Medical 02/23/2020 12:00:00 AM EST [facility] ([facility]) Outpatient Attender: Abraham Lopez MD FP 02/22/2020 02:58:[address] [facility] Outpatient Attender: Abraham Lopez MD FP 12/06/2019 09:43:02 AM EDT [facility] Outpatient Attender: Abraham Lopez MD FP 12/06/2019 09:43:00 AM EDT [facility] Outpatient Attender: Abraham Lopez MD FP 12/06/2019 09:42:01 AM EDT [facility] Outpatient Attender: Abraham Lopez MD FP 12/06/2019 09:42:00 AM EDT [facility] Outpatient Attender: Abraham Lopez MD FP 11/01/2019 01:52:00 PM EDT [facility] Outpatient Attender: Abraham Lopez MD FP 10/24/2019 03:50:02 PM EDT [facility] Outpatient Attender: Abraham Lopez MD FP 10/24/2019 08:46:04 AM EDT [facility] Outpatient Attender: Abraham Lopez MD FP 10/24/2019 08:46:02 AM EDT [facility] Outpatient Attender: Abraham Lopez MD FP 10/24/2019 08:41:04 AM EDT [facility] Outpatient Attender: Abraham Lopez MD FP 10/24/2019 08:41:01 AM EDT [facility] Outpatient Attender: Abraham Lopez MD FP 10/24/2019 08:40:04 AM EDT [facility] Outpatient Attender: Abraham Lopez MD FP 10/24/2019 08:40:04 AM EDT [facility] Outpatient Attender: Abraham Lopez MD FP 10/24/2019 08:34:03 AM EDT [facility] Outpatient Attender: Abraham Lopez MD FP 10/24/2019 08:34:02 AM EDT [facility] Outpatient Attender: Abraham Lopez MD FP 10/21/2019 04:57:00 PM EDT [facility] Outpatient Attender: Abraham Lopez MD FP 10/21/2019 04:57:00 PM EDT [facility] Outpatient Attender: Abraham Lopez MD FP 10/20/2019 01:10:00 PM EDT [facility] Outpatient Attender: Abraham Lopez MD FP 10/18/2019 09:07:01 AM EDT [facility] Outpatient Referrer: Jennifer Lewis MD 09/15/2019 05:43:00 AM EDT [facility] Outpatient Attender: Abraham CRUZ 09/13/2019 07:55:13 PM EDT [facility] Outpatient Attender: Abraham CRUZ 09/09/2019 02:28:00 PM EDT [facility] Outpatient Attender: Abraham CRUZ 09/05/2019 03:25:59 PM EDT [facility] Outpatient Attender: Abraham CRUZ 09/02/2019 10:44:00 AM EDT [facility] Outpatient Referrer: Jennifer Lewis MD 07/20/2019 05:01:00 AM EDT [facility] Outpatient Referrer: Jennifer Lewis MD 07/19/2019 08:40:00 AM EDT [facility] Outpatient Attender: Abraham Lopez MD FP 07/13/2019 11:27:04 AM EDT [facility] Outpatient Referrer: Jennifer Lewis MD 06/28/2019 06:29:00 AM EDT [facility] Outpatient Attender: Abraham Lopez MD FP 06/27/2019 10:49:00 AM EDT [facility] Outpatient Attender: Abraham Lopez MD FP 06/24/2019 09:00:02 AM EDT [facility] Outpatient Referrer: Jennifer Lewis MD 06/06/2019 03:46:00 PM EST [facility] Outpatient Attender: Abraham Lopez MD FP 06/02/2019 12:31:00 PM EST [facility] Outpatient Attender: Abraham Lopez MD FP 06/01/2019 10:49:01 AM EST [facility] Medications Medication Brand Name Start Date Product Form Dose Route Admi nistrative Instructions Pharmacy Instructions Status Indications Reaction Description Data Source(s) 875 mg 02/23/2020 12:00:00 AM EST tablet 20 TAKE ONE TABLET BY MOUTH EVERY 12 HOURS FOR 10 DAYS TAKE ONE TABLET BY MOUTH EVERY 12 HOURS FOR 10 DAYS SO LD: 02/23/2020 [facility] 4 mg 02/19/2020 12:00:00 AM EST tablet,disintegrating 1 6 DISSOLVE ONE TABLET ON TONGUE EVERY 6 TO 8 HOURS NEEDED FOR NAUSEA AND VOMITING DISSOLVE ONE TABLET ON TONGUE EVERY 6 TO 8 HOURS NEEDED FOR NAUSEA AND VOMITING SOLD: 02/20/2020 [facility] 33 gauge 02/19/2020 12:00:00 AM EST misc 100 USE TO TEST BLOOD SUGAR FOUR TIMES A DAY (BEFORE MEALS AND AT BEDTIME) USE TO TEST BLOOD SUGAR FOUR TIMES A DAY (BEFORE MEALS AND AT BEDTIME) SOLD: 02/20/2020 [facility] 0.5 mL 31 gauge x 5/16" 02/19/2020 12:00:00 AM EST syringe 100 USE WITH INSULIN BEFORE MEALS AND AT BEDTIME USE WITH INSULIN BEFORE MEALS AND AT BED TIME SOLD: 02/20/2020 [facility] 100 unit/mL 02/19/2020 12:00:00 AM EST solution 10 INJECT SUBCUTANEOUSLY BEFORE MEALS AND AT BEDTIME PER SLIDING SCALE MAXIMUM DAILY DOSE = 50 UNITS INJECT SUBCUTANEOUSLY BEFORE MEALS AND AT BEDTIME PER SLIDING SCALE MAXIMUM DAILY DOSE = 50 UNITS SOLD: 02/20/2020 [facility] 31 gauge x 516" 02/19/2020 12:00:00 AM EST needle 100 USE DIRECTED WITH BASAGLAR ONCE DAILY AT BEDTIME USE DIRECTED WITH BASAGLAR ONCE DAILY AT BEDTIME SOLD: 02/20/2020 [facility] BLOOD SUGAR DIAGNOSTIC 02/19/2020 12:00:00 AM EST strip 100 USE TO TEST BLOOD SUGAR FOUR TIMES A DAY (BEFORE MEALS AND AT BEDTIME) USE TO TEST BLOOD SUGAR FOUR TIMES A DAY (BEFORE MEALS AND AT BEDTIME) SOLD: 02/20/2020 [facility] 100 unit/mL (3 mL) 02/19/2020 12:00:00 AM EST insulin pen 15 INJECT 8 UNITS SUBCUTANEOUSLY AT BEDTIME INJECT 8 UNITS SUBCUTANEOUSLY AT BEDTIME SOLD: 02/20/2020 [facility] BLOOD-GLUCOSE METER 02/19/2020 12:00:00 AM EST misc 1 USE DIRECTED TO TEST BLOOD SUGAR USE DIRECTED TO TEST BLOOD SUGAR SOLD: 02/20/2020 [facility] 500 mg 11/27/2019 12:00:00 AM EDT tablet 20 TAKE ONE TABLET BY MOUTH TWICE A DAY TAKE ONE TABLET BY MOUTH TWICE A DAY SOLD: 11/27/2019 [facility] 4 mg 09/02/2019 12:00:00 AM EDT tablet 20 TAKE ONE TABLET BY MOUTH EVERY 6 HOURS TAKE ONE TABLET BY MOUTH EVERY 6 HOURS SOLD: 09/02/2019 [facility] 25 mg 07/01/2019 12:00:00 AM EDT suppository 15 INSERT ONE SUPPOSITORY RECTALLY EVERY 8 HOURS NEEDED FOR NAUSEA INSERT ONE SUPPOSITORY RECTALLY EVERY 8 HOURS NEEDED FOR NAUSEA SOLD: 07/02/2019 [facility] 10 mg 06/30/2019 12:00:00 AM EDT tablet 20 TAKE ONE TABLET BY MOUTH BEFORE MEALS AND AT BEDTIME NEEDED FOR NAUSEA TAKE ONE TABLET BY MOUTH BEFORE MEALS AND AT BEDTIME NEEDED FOR NAUSEA SOLD: 07/02/2019 [facility] 4 mg 06/30/2019 12:00:00 AM EDT tablet,disintegrating 1 6 DISSOLVE ONE TABLET ON TONGUE EVERY 6 TO 8 HOURS NEEDED FOR NAUSEA AND VOMITING DISSOLVE ONE TABLET ON TONGUE EVERY 6 TO 8 HOURS NEEDED FOR NAUSEA AND VOMITING SOLD: 07/02/2019 [facility] 5 mg 06/24/2019 12:00:00 AM EDT tablet 20 TAKE ONE TABLET BY MOUTH EVERY DAY BEFORE MEALS AND AT BEDTIME TAKE ONE TABLET BY MOUTH EVERY DAY BEFOR E MEALS AND AT BEDTIME SOLD: 06/28/2019 [facility] 5 mg 06/24/2019 12:00:00 AM EDT tablet 18 TAKE 1 TABLET BY MOUTH EVERY 4 HOURS NEEDED FOR PAIN, MAXIMUM DAILY DOSE = SIX TABLETS TAKE 1 TABLET BY MOUTH EVERY 4 HOURS NEEDED FOR PAIN, MAXIMUM DAILY DOSE = SIX TABLETS SOLD: 06/28/2019 [facility] 25 mg 06/24/2019 12:00:00 AM EDT suppository 15 INSERT ONE SUPPOSITORY RECTALLY EVERY 8 HOURS NEEDED FOR NAUSEA INSERT ONE SUPPOSITORY RECTALLY EVERY 8 HOURS NEEDED FOR NAUSEA SOLD: 06/28/2019 [facility] 20 mg 06/24/2019 12:00:00 AM EDT capsule,delayed release (DR/EC) 60 TAKE ONE CAPSULE BY MOUTH TWICE A DAY TAKE ONE CAPSULE BY MOUTH TWICE A DAY SOLD: 06/28/2019 [facility] Penicillin V Potassium 500 MG Oral Table t penicillin V potassium 500 mg tablet TAKE ONE TABLET BY MOUTH TWICE A DAY penicillin V potassium 500 mg tablet ELIAS E ONE TABLET BY MOUTH TWICE A DAY comple pau penicillin V potassium 500 MG Oral Tablet [facility] ([facility]) Ondansetron 4 MG Oral Tablet ondansetron HCl 4 mg tabl et ondansetron HCl 4 mg tablet completed ondansetron 4 M G Oral Tablet [facility] ([facility]) Metoclopramide 10 MG Oral Tablet metoclopramide 10 mg tablet metoclopramide 10 mg tablet completed metocloprami de 10 MG Oral Tablet [facility] ([facility]) Oxycodone Hydrochloride 5 MG Oral Tablet oxycodone 5 m g tablet oxycodone 5 mg tablet completed oxycodone hydro chloride 5 MG Oral Tablet [facility] ([facility]) Omeprazole 20 MG Delayed Release Oral Ca psule omeprazole 20 mg capsule,delayed release TAKE ONE CAPSULE BY MOUTH TWICE A DAY omeprazole 20 mg capsule,delayed release TAKE ONE CAPSULE BY MOUTH TWICE A DAY completed omeprazole 20 MG Delayed Release Oral Capsule [facility] ([facility]) Prochlorperazine 25 MG Rectal Suppositor y prochlorperazine 25 mg rectal suppository INSERT ONE SUPPOSITORY RECTALLY EVERY 8 HOURS NEEDED FOR NAUSEA prochlorperazine 25 mg rectal suppository INSERT ONE SUPPOSITORY RECTALLY EVERY 8 HOURS NEEDED FOR NAUSEA completed prochlorperazine 25 MG Rectal Suppository [facility] ([facility]) Metoclopramide 5 MG Oral Tablet metoclop ramide 5 mg tablet TAKE ONE TABLET BY MOUTH EVERY DAY BEFORE MEALS AND AT BEDTIME metoclopramide 5 mg tablet TAKE ONE TABLET BY MOUTH EVERY DAY BEFORE MEALS AND AT BEDTIME completed metoclopramide 5 MG Oral Tablet [facility] ([facility]) Insurance Providers Payer name Policy type / Coverage type Policy ID Covered libertarian ID Covered libertarian's relationship to schultz Policy Schultz Plan Information [facility] [id number] SP [id number] [facility]) O [id number] S [id number] [facility] P [id number] S [id number] Medicaid S [id number] S [id number] [facility] Care [facility] P [id number] S [id number] MEDICAID [id number] SP [id number] [facility] Care [facility] P [id number] S [id number] Medicaid S [id number] S [id number] [facility] Care [facility] P UNAVAILABLE S UNAVAILABLE Medicaid S [id number] S [id number] [facility] PLAN [facility] [id number] SP [id number] SELF PAY ONLY SP 1994 SELF PAY UNAVAILABLE SP UNAVAILA BLE MEDICAID GME W [id number] S [id number] COMM [facility] FHP W [id number] S [id number] MEDICAID W UNAVAILABLE S UNAVAILA BLE SELF PAY P S P UNAVAILABLE UNAVAILA BLE [id number] [id number] SP [id number] O BLUE [id number] SP [id number] Results ID Date Data Source [id number] 03/17/2020 08:43:00 PM EST [facility] Name Value Range Interpretation Code Description Data Kaye rce(s) Supporting Document(s) SARS coronavirus 2 RNA [Presence] in Res piratory specimen by SULY with probe detection [facility] This lab was ordered by [facility] a nd reported by [facility]. ID Date Data Source [id number] 02/19/2020 11:50:00 AM EST [facility] ([facility]) Name Value Range Interpretation Code Description Data Kaye rce(s) Supporting Document(s) bedside glucose 180 mg/dL 70-105 Above high normal Bedside Gluco se [facility] ([facility]) ID Date Data Source [id number] 02/19/2020 04:20:00 AM EST [facility] ([facility]) Name Value Range Interpretation Code Description Data Kaye rce(s) Supporting Document(s) glucose, fasting 139 mg/dL 70-100 Above high normal Glucose, Fas ting [facility] ([facility]) creatinine for GFR 1.14 mg/dL 0.55-1.30 normal Creatinine for GF R [facility] ([facility]) blood urea nitrogen 21 mg/dL 7-18 Above high normal Blood Ure a Nitrogen [facility] ([facility]) glomerular filtration rate > 60.0 >58 normal Glomerula r Filtration Rate [facility] ([facility]) sodium level 138 mEq/L 136-145 normal Sodium Level [facility] ([facility]) potassium serum 3.6 mEq/L 3.5-5.1 normal Potassium Serum ATH NA ([facility]) carbon dioxide level 25 mEq/L 21-32 normal Carbon Dioxide Level [facility] ([facility]) chloride level 109 mEq/L 98-107 Above high normal Chloride Level [facility] ([facility]) anion gap 4 mEq/L 8-16 Below low normal Anion Gap [facility] ( [facility]) calcium level 8.4 mg/dL 8.5-10.1 Below low normal Calcium Level AT TRAM ([facility]) ID Date Data Source [id number] 02/19/2020 04:20:00 AM EST [facility] ([facility]) Name Value Range Interpretation Code Description Data Kaye rce(s) Supporting Document(s) white blood count 5.8 10 4.0-10.0 normal White Blood Count [facility] ([facility]) red blood count 3.11 10 4.00-5.40 Below low normal Red Blood Coun t [facility] ([facility]) hemoglobin 8.5 g/dL 12.0-15.5 Below low normal Hemoglobin [facility] ( [facility]) hematocrit 26.6 % 36.0-47.0 Below low normal Hematocrit [facility] ( [facility]) mean corpuscular volume 85.5 fL 80.0-96.0 normal Mean Corpusc ular Volume [facility] ([facility]) mean corpuscular hemoglobin 27.3 pg 27.0-33.0 normal Mean Corpuscular Hemoglobin [facility] ([facility]) red cell distribution width 14.7 % 11.5-14.5 Above high no rmal Red Cell Distribution Width [facility] ([facility]) mean corpuscular HGB conc 32.0 g/dL 32.0-36.5 normal Mean Corpu scular HGB Conc [facility] ([facility]) platelet count, automated 256 10 150-450 normal Platelet C ount, Automated [facility] ([facility]) nucleated red blood cell % 0.0 % 0-0 normal Nucleated Red Blood Cell % [facility] ([facility]) ID Date Data Source [id number] 02/18/2020 08:43:00 PM EST [facility] ([facility]) Name Value Range Interpretation Code Description Data Kaye rce(s) Supporting Document(s) bedside glucose 67 mg/dL 70-105 Below low normal Bedside Glucos e [facility] ([facility]) ID Date Data Source [id number] 02/18/2020 08:09:00 PM EST [facility] ([facility]) Name Value Range Interpretation Code Description Data Kaye rce(s) Supporting Document(s) bedside glucose 40 mg/dL 70-105 Below low normal Bedside Glucos e [facility] ([facility]) ID Date Data Source [id number] 02/18/2020 05:03:00 PM EST ROMAN ([facility]) Name Value Range Interpretation Code Description Data Kaye rce(s) Supporting Document(s) bedside glucose 112 mg/dL 70-105 Above high normal Bedside Gluco se ROMAN ([facility]) ID Date Data Source [id number] 02/18/2020 11:43:00 AM EST ROMAN ([facility]) Name Value Range Interpretation Code Description Data Kaye rce(s) Supporting Document(s) bedside glucose 199 mg/dL 70-105 Above high normal Bedside Gluco se ROMAN ([facility]) ID Date Data Source [id number] 02/18/2020 10:22:00 AM EST ROMAN ([facility]) Name Value Range Interpretation Code Description Data Kaye rce(s) Supporting Document(s) bedside glucose 182 mg/dL 70-105 Above high normal Bedside Gluco se ROMAN ([facility]) ID Date Data Source [id number] 02/18/2020 10:20:00 AM EST ROMAN ([facility]) Name Value Range Interpretation Code Description Data Kaye rce(s) Supporting Document(s) phosphorus level 1.4 mg/dL 2.5-4.9 Below low normal Phosphorus Le analia ROMAN ([facility]) ID Date Data Source [id number] 02/18/2020 10:20:00 AM EST ROMAN ([facility]) Name Value Range Interpretation Code Description Data Kaye rce(s) Supporting Document(s) blood urea nitrogen 32 mg/dL 7-18 Above high normal Blood Ure a Nitrogen ROMAN ([facility]) glucose, fasting 199 mg/dL 70-100 Above high normal Glucose, Fas ting ROMAN ([facility]) creatinine for GFR 1.38 mg/dL 0.55-1.30 Above high normal Creatinine for GFR ROMAN ([facility]) glomerular filtration rate >58 Below low normal Beata merular Filtration Rate ROMAN ([facility]) sodium level 139 mEq/L 136-145 normal Sodium Level ROMAN (No [facility]) potassium serum 3.8 mEq/L 3.5-5.1 normal Potassium Serum ATHE NA ([facility]) carbon dioxide level 25 mEq/L 21-32 normal Carbon Dioxide Level [place] ([facility]) chloride level 109 mEq/L 98-107 Above high normal Chloride Level [place] ([facility]) anion gap 5 mEq/L 8-16 Below low normal Anion Gap [place] ( [facility]) calcium level 8.2 mg/dL 8.5-10.1 Below low normal Calcium Level AT [facility] ([facility]) ID Date Data Source [id number] 02/18/2020 09:01:00 AM EST [place] ([facility]) Name Value Range Interpretation Code Description Data Kaye rce(s) Supporting Document(s) bedside glucose 112 mg/dL 70-105 Above high normal Bedside Gluco se [facility]) ID Date Data Source [id number] 02/18/2020 08:03[facility]00 [facility] Name Value Range Interpretation Code Description Data Kaye rce(s) Supporting Document(s) bedside glucose 123 mg/dL 70-105 Above high normal Bedside Gluco se [facility]) ID Date Data Source [id number] 02/18/2020 07:03[facility]00 [facility] Name Value Range Interpretation Code Description Data Kaye rce(s) Supporting Document(s) bedside glucose 156 mg/dL 70-105 Above high normal Bedside Gluco se ROMAN ([facility]) ID Date Data Source [id number] 02/18/2020 06:32:00 AM EST ROMAN ([facility]) Name Value Range Interpretation Code Description Data Kaye rce(s) Supporting Document(s) phosphorus level 2.0 mg/dL 2.5-4.9 Below low normal Phosphorus Le analia ROMAN ([facility]) ID Date Data Source [id number] 02/18/2020 06:32:00 AM EST ROMAN ([facility]) Name Value Range Interpretation Code Description Data Kaye rce(s) Supporting Document(s) glucose, fasting 137 mg/dL 70-100 Above high normal Glucose, Fas ting [place] ([facility]) blood urea nitrogen 36 mg/dL 7-18 Above high normal Blood Ure a Nitrogen [place] ([facility]) creatinine for GFR 1.35 mg/dL 0.55-1.30 Above high normal Creatinine for GFR [place] ([facility]) sodium level 140 mEq/L 136-145 normal Sodium Level ROMAN (No [facility]) glomerular filtration rate >58 Below low normal Beata merular Filtration Rate [place] ([facility]) potassium serum 4.2 mEq/L 3.5-5.1 normal Potassium Serum ATH NA ([facility]) chloride level 109 mEq/L 98-107 Above high normal Chloride Level [place] ([facility]) anion gap 8 mEq/L 8-16 normal Anion Gap [place] ([facility]) carbon dioxide level 23 mEq/L 21-32 normal Carbon Dioxide Level ROMAN ([facility]) calcium level 8.4 mg/dL 8.5-10.1 Below low normal Calcium Level AT TRAM [facility]) ID Date Data Source [id number] 02/18/2020 06:32:00 AM EST ROMAN ([facility]) Name Value Range Interpretation Code Description Data Kaye rce(s) Supporting Document(s) red blood count 3.39 10 4.00-5.40 Below low normal Red Blood Coun t ROMAN ([facility]) white blood count 6.9 10 4.0-10.0 normal White Blood Count ROMAN ([facility]) hemoglobin 9.6 g/dL 12.0-15.5 Below low normal Hemoglobin ROMAN ( [facility]) hematocrit 28.7 % 36.0-47.0 Below low normal Hematocrit ROMAN ( [facility]) mean corpuscular hemoglobin 28.3 pg 27.0-33.0 normal Mean Corpuscular Hemoglobin ROMAN ([facility]) mean corpuscular volume 84.7 fL 80.0-96.0 normal Mean Corpusc ular Volume ROMAN ([facility]) red cell distribution width 14.8 % 11.5-14.5 Above high no rmal Red Cell Distribution Width [place] ([facility]) mean corpuscular HGB conc 33.4 g/dL 32.0-36.5 normal Mean Corpu scular HGB Conc ROMAN ([facility]) platelet count, automated 300 10 150-450 normal Platelet C ount, Automated ROMAN ([facility]) nucleated red blood cell % 0.0 % 0-0 normal Nucleated Red Blood Cell % ROMAN ([facility]) ID Date Data Source [id number] 02/18/2020 06:19:00 AM EST [facility]) Name Value Range Interpretation Code Description Data Kaye rce(s) Supporting Document(s) bedside glucose 122 mg/dL 70-105 Above high normal Bedside Gluco se ROMAN ([facility]) ID Date Data Source [id number] 02/18/2020 05:24:00 AM EST ROMAN ([facility]) Name Value Range Interpretation Code Description Data Kaye rce(s) Supporting Document(s) bedside glucose 82 mg/dL 70-105 normal Bedside Glucose ATHE [facility]) ID Date Data Source [id number] 02/18/2020 04:20:00 AM EST ROMAN ([facility]) Name Value Range Interpretation Code Description Data Kaye rce(s) Supporting Document(s) bedside glucose 101 mg/dL 70-105 normal Bedside Glucose ATHE NA ([facility]) ID Date Data Source [id number] 02/18/2020 03:13:00 AM EST ROMAN ([facility]) Name Value Range Interpretation Code Description Data Kaye rce(s) Supporting Document(s) bedside glucose 133 mg/dL 70-105 Above high normal Bedside Gluco se ROMAN ([facility]) ID Date Data Source [id number] 02/18/2020 02:25:00 AM EST ROMAN ([facility]) Name Value Range Interpretation Code Description Data Kaye rce(s) Supporting Document(s) phosphorus level 2.1 mg/dL 2.5-4.9 Below low normal Phosphorus Le analia ROMAN ([facility]) ID Date Data Source [id number] 02/18/2020 02:25:00 AM EST ROMAN ([facility]) Name Value Range Interpretation Code Description Data Kaye rce(s) Supporting Document(s) glucose, fasting 135 mg/dL 70-100 Above high normal Glucose, Fas ting ROMAN ([facility]) creatinine for GFR 1.64 mg/dL 0.55-1.30 Above high normal Creatinine for GFR ROMAN ([facility]) blood urea nitrogen 41 mg/dL 7-18 Above high normal Blood Ure a Nitrogen ROMAN ([facility]) glomerular filtration rate >58 Below low normal Beata merular Filtration Rate ROMAN ([facility]) sodium level 139 mEq/L 136-145 normal Sodium Level ROMAN ([facility]) potassium serum 3.7 mEq/L 3.5-5.1 normal Potassium Serum ATHE NA ([facility]) chloride level 107 mEq/L 98-107 normal Chloride Level ROMAN ([facility]) carbon dioxide level 25 mEq/L 21-32 normal Carbon Dioxide Level ROMAN ([facility]) calcium level 8.2 mg/dL 8.5-10.1 Below low normal Calcium Level AT [facility] ([facility]) anion gap 7 mEq/L 8-16 Below low normal Anion Gap ROMAN ( [facility]) ID Date Data Source [id number] 02/18/2020 02:23:00 AM EST ROMAN ([facility]) Name Value Range Interpretation Code Description Data Kaye rce(s) Supporting Document(s) bedside glucose 135 mg/dL 70-105 Above high normal Bedside Gluco se ROMAN ([facility]) ID Date Data Source [id number] 02/18/2020 01:09:00 AM EST ROMAN ([facility]) Name Value Range Interpretation Code Description Data Kaye rce(s) Supporting Document(s) bedside glucose 139 mg/dL 70-105 Above high normal Bedside Gluco se ROMAN ([facility]) ID Date Data Source [id number] 02/18/2020 12:08:00 AM EST ROMAN ([facility]) Name Value Range Interpretation Code Description Data Kaye rce(s) Supporting Document(s) bedside glucose 162 mg/dL 70-105 Above high normal Bedside Gluco se ROMAN ([facility]) ID Date Data Source [id number] 02/17/2020 11:37:00 PM EST ROMAN ([facility]) Name Value Range Interpretation Code Description Data Kaye rce(s) Supporting Document(s) bedside glucose 103 mg/dL 70-105 normal Bedside Glucose ATHE NA ([facility]) ID Date Data Source [id number] 02/17/2020 10:58:00 PM EST ROMAN ([facility]) Name Value Range Interpretation Code Description Data Kaye rce(s) Supporting Document(s) bedside glucose 79 mg/dL 70-105 normal Bedside Glucose ATHE NA ([facility]) ID Date Data Source [id number] 02/17/2020 10:40:00 PM EST ROMAN ([facility]) Name Value Range Interpretation Code Description Data Kaye rce(s) Supporting Document(s) bedside glucose 77 mg/dL 70-105 normal Bedside Glucose ATHE NA ([facility]) ID Date Data Source [id number] 02/17/2020 09:17:00 PM EST ROMAN ([facility]) Name Value Range Interpretation Code Description Data Kaye rce(s) Supporting Document(s) bedside glucose 191 mg/dL 70-105 Above high normal Bedside Gluco se ROMAN ([facility]) ID Date Data Source [id number] 02/17/2020 08:19:00 PM EST ROMAN ([facility]) Name Value Range Interpretation Code Description Data Kaye rce(s) Supporting Document(s) phosphorus level 4.3 mg/dL 2.5-4.9 normal Phosphorus Level AT TRAM ([facility]) ID Date Data Source [id number] 02/17/2020 08:19:00 PM EST ROMAN ([facility]) Name Value Range Interpretation Code Description Data Kaye rce(s) Supporting Document(s) blood urea nitrogen 48 mg/dL 7-18 Above high normal Blood Ure a Nitrogen ROMAN ([facility]) glomerular filtration rate >58 Below low normal Beata merular Filtration Rate ROMAN ([facility]) glucose, fasting 314 mg/dL 70-100 Above high normal Glucose, Fas ting ROMAN ([facility]) creatinine for GFR 1.81 mg/dL 0.55-1.30 Above high normal Creatinine for GFR ROMAN ([facility]) sodium level 134 mEq/L 136-145 Below low normal Sodium Level ATHE ([facility]) potassium serum 3.5 mEq/L 3.5-5.1 normal Potassium Serum ATHE NA ([facility]) carbon dioxide level 19 mEq/L 21-32 Below low normal Carbon Di oxide Level ROMAN ([facility]) chloride level 98 mEq/L 98-107 normal Chloride Level ROMAN ([facility]) anion gap 17 mEq/L 8-16 Above high normal Anion Gap ROMAN ([facility]) calcium level 8.9 mg/dL 8.5-10.1 normal Calcium Level ROMAN ( [facility]) ID Date Data Source [id number] 02/17/2020 07:12:00 PM EST ROMAN ([facility]) Name Value Range Interpretation Code Description Data Kaye rce(s) Supporting Document(s) bedside glucose 327 mg/dL 70-105 Above high normal Bedside Gluco se [place] ([facility]) ID Date Data Source [id number] 02/17/2020 06:57:00 PM EST ROMAN ([facility]) Name Value Range Interpretation Code Description Data Kaye rce(s) Supporting Document(s) phosphorus level 4.4 mg/dL 2.5-4.9 normal Phosphorus Level AT [facility] ([facility]) ID Date Data Source [id number] 02/17/2020 06:57:00 PM EST [place] ([facility]) Name Value Range Interpretation Code Description Data Kaye rce(s) Supporting Document(s) blood urea nitrogen 50 mg/dL 7-18 Above high normal Blood Ure a Nitrogen ROMAN ([facility]) creatinine for GFR 1.77 mg/dL 0.55-1.30 Above high normal Creatinine for GFR ROMAN ([facility]) glomerular filtration rate >58 Below low normal Beata merular Filtration Rate ROMAN ([facility]) glucose, fasting 329 mg/dL 70-100 Above high normal Glucose, Fas ting ROMAN ([facility]) sodium level 132 mEq/L 136-145 Below low normal Sodium Level ATHE NA ([facility]) chloride level 96 mEq/L 98-107 Below low normal Chloride Level ROMAN ([facility]) carbon dioxide level 18 mEq/L 21-32 Below low normal Carbon Di oxide Level ROMAN ([facility]) potassium serum 3.9 mEq/L 3.5-5.1 normal Potassium Serum ATHE NA ([facility]) anion gap 18 mEq/L 8-16 Above high normal Anion Gap ROMAN ([facility]) calcium level 8.9 mg/dL 8.5-10.1 normal Calcium Level ROMAN ( [facility]) ID Date Data Source [id number] 02/17/2020 04:21:00 PM EST ROMAN ([facility]) Name Value Range Interpretation Code Description Data Kaye rce(s) Supporting Document(s) blood urea nitrogen 49 mg/dL 7-18 Above high normal Blood Ure a Nitrogen ROMAN ([facility]) glucose, fasting 337 mg/dL 70-100 Above high normal Glucose, Fas ting ROMAN ([facility]) sodium level 132 mEq/L 136-145 Below low normal Sodium Level ATHE NA ([facility]) potassium serum 4.1 mEq/L 3.5-5.1 normal Potassium Serum ATHE NA ([facility]) creatinine for GFR 1.73 mg/dL 0.55-1.30 Above high normal Creatinine for GFR ROMAN ([facility]) glomerular filtration rate >58 Below low normal Beata merular Filtration Rate ROMAN ([facility]) anion gap 20 mEq/L 8-16 Above high normal Anion Gap ROMAN ([facility]) calcium level 9.5 mg/dL 8.5-10.1 normal Calcium Level ROMAN ( [facility]) chloride level 95 mEq/L 98-107 Below low normal Chloride Level ROMAN ([facility]) carbon dioxide level 17 mEq/L 21-32 Below low normal Carbon Di oxide Level ROMAN ([facility]) ID Date Data Source [id number] 02/17/2020 04:21:00 PM EST ROMAN ([facility]) Name Value Range Interpretation Code Description Data Kaye rce(s) Supporting Document(s) ALT/SGPT 18 U/L 12-78 normal ALT/SGPT ROMAN ([facility]) AST/SGOT 22 U/L 7-37 normal AST/SGOT ROMAN ([facility]) alkaline phosphatase 79 U/L 45-117 normal Alkaline Phosph atase ROMAN ([facility]) bilirubin,total 1.0 mg/dL 0.2-1.0 normal Bilirubin,total ATHE NA ([facility]) total protein 8.2 gm/dL 6.4-8.2 normal Total Protein ROMAN ( [facility]) bilirubin,direct 0.2 mg/dL 0.0-0.2 normal Bilirubin,direct AT [facility] ([facility]) albumin 4.3 gm/dL 3.2-5.2 normal Albumin ROMAN ([facility]) albumin/globulin ratio 1.2-2.2 Below low normal Albumin /globulin Ratio ROMAN ([facility]) ID Date Data Source [id number] 02/17/2020 04:21:00 PM EST ROMAN ([facility]) Name Value Range Interpretation Code Description Data Kaye rce(s) Supporting Document(s) osmolality serum 311 mOsm/kg 275-295 Above high normal Osmolality Serum ROMAN ([facility]) ID Date Data Source [id number] 02/17/2020 04:21:00 PM EST ROMAN ([facility]) Name Value Range Interpretation Code Description Data Kaye rce(s) Supporting Document(s) lipase 68 U/L 73-393 Below low normal Lipase ROMAN ( [facility]) ID Date Data Source [id number] 02/17/2020 04:21:00 PM EST ROMAN ([facility]) Name Value Range Interpretation Code Description Data Kaye rce(s) Supporting Document(s) acetone/ketone > 46.00 <2.81 Above high normal Acetone/ketone ROMAN ([facility]) ID Date Data Source [id number] 02/17/2020 01:36:00 PM EST ROMAN ([facility]) Name Value Range Interpretation Code Description Data Kaye rce(s) Supporting Document(s) sars covid-19 amplification negative negative normal Sars Covid-19 Amplification ROMAN ([facility]) ID Date Data Source [id number] 02/17/2020 01:25:00 PM EST ROMAN ([facility]) Name Value Range Interpretation Code Description Data Kaye rce(s) Supporting Document(s) Hemoglobin A1c/Hemoglobin.total in Blood 8.5 % normal Hemoglobin a1C [place] ([facility]) estimated average glucose 197 mg/dL 60-110 Above high norm al Estimated Average Glucose [facility]) ID Date Data Source [id number] 02/17/2020 01:25:00 PM EST ROMAN ([facility]) Name Value Range Interpretation Code Description Data Kaye rce(s) Supporting Document(s) venous pH 7.371 units 7.330-7.430 normal Venous pH ROMAN ([facility]) venous partial pressure CO2 30.6 mmHg 38.0-50.0 Below low nor mal Venous Partial Pressure CO2 [place] ([facility]) venous partial pressure O2 83.8 mmHg 30.0-50.0 Above high nor mal Venous Partial Pressure O2 ROMAN ([facility]) venous base excess -2.0-2.0 Below low normal Venous Base Excess ROMAN ([facility]) venous total CO2 18.3 mEq/L 24.0-28.0 Below low normal Venous Total CO2 ROMAN ([facility]) venous HCO3 17.3 mEq/L 23.0-27.0 Below low normal Venous HCO3 [place] ([facility]) venous O2 saturation 96.0 % 60.0-80.0 Above high normal Venous O 2 Saturation ROMAN ([facility]) venous standard HCO3 18.9 mEq/L normal [facility] ID Date Data Source [id number] 02/17/2020 01:25:00 PM EST [place] ([facility]) Name Value Range Interpretation Code Description Data Kaye rce(s) Supporting Document(s) red blood count 3.98 10 4.00-5.40 Below low normal Red Blood Coun t ROMAN ([facility]) hemoglobin 11.0 g/dL 12.0-15.5 Below low normal Hemoglobin ROMAN ( [facility]) white blood count 9.6 10 4.0-10.0 normal White Blood Count ROMAN ([facility]) mean corpuscular volume 84.9 fL 80.0-96.0 normal Mean Corpusc ular Volume ROMAN ([facility]) hematocrit 33.8 % 36.0-47.0 Below low normal Hematocrit [place] ( [facility]) red cell distribution width 15.0 % 11.5-14.5 Above high no rmal Red Cell Distribution Width [facility] ([facility]) mean corpuscular hemoglobin 27.6 pg 27.0-33.0 normal Mean Corpuscular Hemoglobin ROMAN ([facility]) mean corpuscular HGB conc 32.5 g/dL 32.0-36.5 normal Mean Corpu scular HGB Conc [place] ([facility]) neutrophils % 78.2 % 36.0-66.0 Above high normal Neutrophils % A THENA ([facility]) lymph % 14.8 % 24.0-44.0 Below low normal Lymph % [place] ( [facility]) platelet count, automated 333 10 150-450 normal Platelet C ount, Automated ROMAN ([facility]) eos % 0.1 % 0.0-3.0 normal Eos % ROMAN ([facility]) baso % 0.5 % 0.0-1.0 normal Baso % ROMAN ([facility]) mono % 6.1 % 0.0-5.0 Above high normal [place] % ROMAN ([facility]) immature granulocyte % 0.3 % 0-3.0 normal Immature Gran ulocyte % ROMAN ([facility]) neutrophils # 7.5 10 1.5-8.5 normal Neutrophils # ROMAN ( [facility]) nucleated red blood cell % 0.0 % 0-0 normal Nucleated Red Blood Cell % ROMAN ([facility]) eos # 0.0 10 0.0-0.5 normal Eos # ROMAN ([facility]) mono # 0.6 10 0.0-0.8 normal [place] # ROMAN ([facility]) lymph # 1.4 10 1.5-5.0 Below low normal Lymph # ROMAN ( [facility]) baso # 0.1 10 0.0-0.2 normal Baso # ROMAN ([facility]) ID Date Data Source [id number] 02/17/2020 01:25:00 PM EST ROMAN ([facility]) Name Value Range Interpretation Code Description Data Kaye rce(s) Supporting Document(s) venous pH 7.371 units 7.330-7.430 normal Venous pH ROMAN ([facility]) venous partial pressure CO2 30.6 mmHg 38.0-50.0 Below low nor mal Venous Partial Pressure CO2 [place] ([facility]) venous partial pressure O2 83.8 mmHg 30.0-50.0 Above high nor mal Venous Partial Pressure O2 ROMAN ([facility]) venous total CO2 18.3 mEq/L 24.0-28.0 Below low normal Venous Total CO2 ROMAN ([facility]) venous base excess -2.0-2.0 Below low normal Venous Base Excess ROMAN ([facility]) venous standard HCO3 18.9 mEq/L normal Venous Standard HCO3 ROMAN ([facility]) venous HCO3 17.3 mEq/L 23.0-27.0 Below low normal Venous HCO3 CROS[facility] ([facility]) venous O2 saturation 96.0 % 60.0-80.0 Above high normal Venous O 2 Saturation CROS[facility] ([facility]) ID Date Data Source [id number] 02/17/2020 01:22:00 PM EST ROMAN ([facility]) Name Value Range Interpretation Code Description Data Kaye rce(s) Supporting Document(s) istat HCT 37.0 % 38.0-51.0 Below low normal Istat HCT ROMAN ( [facility]) istat glucose 359 mg/dL 70-105 Above high normal Istat Glucose A THENA ([facility]) istat sodium 127 mEq/L 136-145 Below low normal Istat Sodium ATHE NA ([facility]) istat Ca++ 3.8 mg/dL 4.5-5.3 Below low normal Istat Ca++ ROMAN ( [facility]) istat potassium 7.8 mEq/L 3.5-5.1 Above high normal Istat Potassi um ROMAN ([facility]) istat CO2 21.0 mm/L 23.0-27.0 Below low normal Istat CO2 ROMAN ( [facility]) istat chloride 96 mEq/L 98-109 Below low normal Istat Chloride ROMAN ([facility]) istat creatinine 1.6 mg/dL 0.6-1.3 Above high normal Istat Creati nine ROMAN ([facility]) istat BUN 70 mg/dL 8-26 Above high normal Istat BUN ROMAN ([facility]) ID Date Data Source [id number] 11/30/2019 04:55:00 PM EDT [facility] Name Value Range Interpretation Code Description Data Kaye rce(s) Supporting Document(s) BG FASTING 304 mg/dL 70-100 H [facility] ID Date Data Source [id number] 11/30/2019 04:55:00 PM EDT [facility] Name Value Range Interpretation Code Description Data Kaye rce(s) Supporting Document(s) HCT 31.4 % 36.0-47.0 L [facility] HGB 10.6 g/dL 12.0-15.5 L [facility] MCH 33.8 G/DL pg 32.0-36.5 N [facility] MCHC 28.6 PG % 27.0-33.0 N [facility] Family [facility] PLATELETS 319 10 10*3/mm3 150-450 N [facility] RBC 3.71 10 10*6/mm3 4.00-5.40 L [facility] RDW 14.7 % 11.5-14.5 H [facility] WBC TOTAL 10.0 4.0-10.0 N [facility] ID Date Data Source [id number] 10/23/2019 11:54:00 AM EDT [facility] Name Value Range Interpretation Code Description Data Kaye rce(s) Supporting Document(s) BG FASTING 97 mg/dL 70-100 N [facility] ID Date Data Source [id number] 10/23/2019 06:41:00 AM EDT [facility] Name Value Range Interpretation Code Description Data Kaye rce(s) Supporting Document(s) BG FASTING 296 mg/dL 70-100 H [facility] ID Date Data Source [id number] 10/23/2019 06:41:00 AM EDT [facility] Name Value Range Interpretation Code Description Data Kaye rce(s) Supporting Document(s) HCT 27.7 % 36.0-47.0 L [facility] HGB 9.1 g/dL 12.0-15.5 L [facility] MCH 32.9 G/DL pg 32.0-36.5 N [facility] 28.0 PG % 27.0-33.0 N [facility] PLATELETS 279 10 10*3/mm3 150-450 N [facility] RBC 3.25 10 10*6/mm3 4.00-5.40 L [facility] RDW 16.7 % 11.5-14.5 H [facility] WBC TOTAL 8.3 4.0-10.0 N [facility] ID Date Data Source [id number] 10/22/2019 05:25:00 AM EDT [facility] Name Value Range Interpretation Code Description Data Kaye rce(s) Supporting Document(s) HCT 26.0 % 36.0-47.0 L [facility] HGB 8.7 g/dL 12.0-15.5 L [facility] MCH 33.5 G/DL pg 32.0-36.5 N [facility] MCHC 28.2 PG % 27.0-33.0 N [facility] PLATELETS 234 10 10*3/mm3 150-450 N [facility] RBC 3.09 10 10*6/mm3 4.00-5.40 L [facility] RDW 16.2 % 11.5-14.5 H [facility] WBC TOTAL 9.0 4.0-10.0 N [facility] ID Date Data Source [id number] 10/22/2019 05:25:00 AM EDT [facility] Name Value Range Interpretation Code Description Data Kaye rce(s) Supporting Document(s) BG FASTING 257 mg/dL 70-100 H [facility] ID Date Data Source [id number] 10/21/2019 03:16:00 PM EDT [facility] Name Value Range Interpretation Code Description Data Kaye rce(s) Supporting Document(s) HCT 29.0 % 36.0-47.0 L [facility] HGB 9.6 g/dL 12.0-15.5 L [facility] MCH 33.1 G/DL pg 32.0-36.5 N [facility] MCHC 28.6 PG % 27.0-33.0 N [facility] PLATELETS 162 10 10*3/mm3 150-450 N [facility] RBC 3.36 10 10*6/mm3 4.00-5.40 L [facility] RDW 16.4 % 11.5-14.5 H [facility] WBC TOTAL 8.2 4.0-10.0 N [facility] Procedure Vital Signs ID Date Data Source UNK Name Value Range Interpretation Code Description Data Source(s) Body weight 2680 [oz_av] 2680 [oz_av] ROMAN ([facility]) Systolic blood pressure 114 mm[Hg] 114 mm[Hg] A THENA ([facility]) Body mass index (BMI) [Ratio] 26.2 kg/m2 26.2 k g/m2 [facility] ([facility]) Body height 67 [in_i] 67 [in_i] [facility] ([facility]) Diastolic blood pressure 77 mm[Hg] 77 mm[Hg] ROMAN ([facility]) Patient Treatment Plan of Care Planned Activity Planned Date Details Description Data Source (s) Prochlorperazine 25 MG Rectal Suppository ROMAN ([facility]) Penicillin V Potassium 500 MG Oral Tablet ROMAN ([facility]) Oxycodone Hydrochloride 5 MG Oral Tablet ROMAN ([facility]) Ondansetron 4 MG Oral Tablet ROMAN ([facility]) Omeprazole 20 MG Delayed Release Oral Capsule ROMAN ([facility]) Metoclopramide 5 MG Oral Tablet ROMAN ([facility]) Metoclopramide 10 MG Oral Tablet ROMAN ([facility])
[2020-05-19] MEDS ORDERED: DEXTROSE 50% 50 ML SYRINGE As Ordered ONE (10:39)
[2020-05-19] MEDS ORDERED: DEXTROSE 50% 50 ML SYRINGE IV STA (10:39)
[2020-05-19] MEDS ORDERED: NS 1,000 ML IV ONE (10:45)
[2020-05-19] MEDS ORDERED: HALOPERIDOL 5MG/ML VIAL (J1630 PER 1) IV ONE (10:45)
[2020-05-19 11:02] LABS: BASO # 0.1 10^3/uL (0.0-0.2); BASO % 0.7 % (0.0-1.0); EOS # 0.2 10^3/uL (0.0-0.5); EOS % 2.8 % (0.0-3.0); HEMATOCRIT 28.2 % (36.0-47.0); HEMOGLOBIN 8.9 g/dl (12.0-15.5); LYMPH # 2.4 10^3/uL (1.5-5.0); LYMPH % 34.4 % (24.0-44.0); MEAN CORPUSCULAR HEMOGLOBIN 27.7 pg (27.0-33.0); MEAN CORPUSCULAR HGB CONC 31.6 g/dl (32.0-36.5); MEAN CORPUSCULAR VOLUME 87.9 fl (80.0-96.0); MONO # 0.5 10^3/uL (0.0-0.8); MONO % 6.7 % (2.0-8.0); NEUTROPHILS # 3.8 10^3/uL (1.5-8.5); NEUTROPHILS % 55.1 % (36.0-66.0); PLATELET COUNT, AUTOMATED 261 10^3/uL (150-450); RED BLOOD COUNT 3.21 10^6/uL (4.00-5.40); WHITE BLOOD COUNT 6.8 10^3/uL (4.0-10.0)
--- NOTE | 2020-05-19 11:09 | REP ---
INDICATION: N/V. Nausea and vomiting. COMPARISON: Comparison study 17 February 2020.. TECHNIQUE: Portable sitting AP chest radiograph. FINDINGS: Monitoring electrodes are seen. The lungs are well inflated and clear. The pleural angles are sharp. The heart is not enlarged. Pulmonary vasculature is not increased. No significant bony abnormality is seen. IMPRESSION: No active cardiopulmonary disease. <Electronically signed by Ari Weaver > 05/19/20 1109
[2020-05-19 11:25] LABS: HEMOGLOBIN A1c 8.7 %
[2020-05-19 11:27] LABS: ACETONE/KETONE 0.7 MG/DL (<2.81); ALBUMIN 3.7 GM/DL (3.2-5.2); BILIRUBIN,DIRECT 0.1 MG/DL (0.0-0.2); BILIRUBIN,TOTAL 0.3 MG/DL (0.2-1.0); CALCIUM LEVEL 9.3 MG/DL (8.5-10.1); CREATININE FOR GFR 1.29 MG/DL (0.55-1.30); GLOMERULAR FILTRATION RATE 57.1 (>58); TOTAL PROTEIN 6.8 GM/DL (6.4-8.2)
--- OUTSIDE RECORDS SUMMARY | 2020-05-19 11:31 | CCD ---
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 If you continue you may have access to information: Regarding HIV / AIDS; Provided by facilities licensed or operated by the [facility] Office of Mental Health; or Provided by the [facility] Office for People With Developmental Disabilities. If such information is present, then the following [facility] mandated warning applies: This information has been [...] law may result in a fine or long term sentence or both. A general authorization for the release of medical or other information is NOT sufficient authorization for further disc losure. Encounters Encounter Providers Location Date Indications Data Source(s ) Katie Yoo PA-C: [address] [place] [id number], Ph. Attender: Katie [facility] Medical 02/23/2020 12:00:00 AM EST [facility] ([facility]) Outpatient Attender: Abraham Lopez MD FP 02/22/2020 02:58:01 PM EST [facility] Outpatient Attender: Abraham Lopez MD FP 12/06/2019 09:43:[address] [facility] Outpatient Attender: Abraham Lopez MD FP 12/06/2019 09:43:00 AM EDT [facility] Outpatient Attender: Abraham Lopez MD FP 12/06/2019 09:42:01 AM EDT [facility] Outpatient Attender: Abraham Lopez MD FP 12/06/2019 09:42:00 AM EDT [facility] Outpatient Attender: Abraham Lopez MD FP 11/01/2019 01:52:00 PM EDT [facility] Outpatient Attender: Abraham Lopez MD FP 10/24/2019 03:50:[address] [facility] Outpatient Attender: Abraham Lopez MD FP 10/24/2019 08:46:04 AM EDT [facility] Outpatient Attender: Abraham Lopez MD FP 10/24/2019 08:46:02 AM EDT [facility] Outpatient Attender: Abraham Lopez MD FP 10/24/2019 08:41:04 AM EDT [facility] Outpatient Attender: Abraham Lopez MD FP 10/24/2019 08:41:01 AM EDT [facility] Outpatient Attender: Abraham Lopez MD FP 10/24/2019 08:40:[address] [facility] Outpatient Attender: Abraham Lopez MD FP 10/24/2019 08:40:04 AM EDT [facility] Outpatient Attender: Abraham Lopez MD FP 10/24/2019 08:34:03 AM EDT [facility] Outpatient Attender: Abraham Lopez MD FP 10/24/2019 08:34:02 AM EDT [facility] Outpatient Attender: Abraham Lopez MD FP 10/21/2019 04:57:[address] [facility] Outpatient Attender: Abraham Lopez MD FP 10/21/2019 04:57:[address] [facility] Outpatient Attender: Abraham Lopez MD FP 10/20/2019 01:10:00 PM EDT [facility] Outpatient Attender: Abraham Lopez MD FP 10/18/2019 09:07:[address] [facility] Outpatient Referrer: Jennifer Lewis MD 09/15/2019 05:43:00 AM EDT [facility] Outpatient Attender: Abraham Lopez MD FP 09/13/2019 07:55:[address] [facility] Outpatient Attender: Abraham Lopez MD FP 09/09/2019 02:28:[address] [facility] Outpatient Attender: Abraham CRUZ 09/05/2019 03:25:[address] [facility] Outpatient Attender: Abraham Lopez MD FP 09/02/2019 10:44:[address] [facility] Outpatient Referrer: Jennifer Lewis MD 07/20/2019 05:01:00 AM EDT [facility] Referrer: Jennifer Lewis MD 07/19/2019 08:40:00 AM EDT [facility] Out[facility] Attender: Abraham Lopez MD FP 07/13/2019 11:27:[address] [facility] Outpatient Referrer: Jennifer Lewis MD 06/28/2019 06:29:00 AM EDT [facility] Out[facility] Attender: Abraham Lopez MD FP 06/27/2019 10:49:[address] [facility] Outpatient Attender: Abraham Lopez MD FP 06/24/2019 09:00:[address] [facility] Outpatient Referrer: Jennifer Lewis MD 06/06/2019 03:46:00 PM EST [facility] Out[facility] Attender: Abraham Lopez MD FP 06/02/2019 12:31:[address] [facility] Outpatient Attender: Abraham Lopez MD FP 06/01/2019 10:49:[address] [facility] Medications Medication Brand Name Start Date [...] AND AT BEDTIME) SOLD: 02/20/2020 [facility] 0.5 mL 31 gauge x 5/16" [...] DAILY DOSE = 50 UNITS SOLD: 02/20/2020 [facility] 31 gauge x 516" 02/19/2020 12:00:00 AM EST needle 100 USE DIRECTED WITH BASAGLAR ONCE DAILY AT BEDTIME USE DIRECTED WITH BASAGLAR ONCE DAILY AT BEDTIME SOLD: 02/20/2020 [facility] BLOOD SUGAR DIAGNOSTIC 02/19/2020 12:00:00 [...] DIRECTED TO TEST BLOOD SUGAR SOLD: 02/20/2020 [facility] 500 mg 11/27/2019 12:00:00 AM EDT [...] NEEDED FOR NAUSEA AND VOMITING SOLD: 07/02/2019 [facility] 5 mg 06/24/2019 12:00:00 AM EDT [...] V potassium 500 MG Oral Tablet [facility] ([facility]) Ondansetron 4 MG Oral Tablet ondansetron HCl 4 mg tabl et ondansetron HCl 4 mg tablet completed ondansetron 4 M G Oral Tablet [facility] ([facility]) Metoclopramide 10 MG Oral Tablet metoclopramide 10 mg tablet metoclopramide 10 mg tablet completed metocloprami de 10 MG Oral Tablet [facility] ([facility]) Oxycodone Hydrochloride 5 MG Oral Tablet oxycodone 5 m g tablet oxycodone 5 mg tablet completed oxycodone hydro chloride 5 MG Oral Tablet [facility] ([facility]) Omeprazole 20 MG Delayed Release Oral Ca psule omeprazole 20 mg capsule,delayed release TAKE ONE CAPSULE BY MOUTH TWICE A DAY omeprazole 20 mg capsule,delayed release TAKE ONE CAPSULE BY MOUTH TWICE A DAY completed omeprazole 20 MG Delayed Release Oral Capsule [facility] ([facility]) Prochlorperazine 25 MG Rectal Suppositor y prochlorperazine 25 mg rectal suppository INSERT ONE SUPPOSITORY RECTALLY EVERY 8 HOURS NEEDED FOR NAUSEA prochlorperazine 25 mg rectal suppository INSERT ONE SUPPOSITORY RECTALLY EVERY 8 HOURS NEEDED FOR NAUSEA completed prochlorperazine 25 MG Rectal Suppository [facility] ([facility]) Metoclopramide 5 MG Oral Tablet metoclop ramide 5 mg tablet TAKE ONE TABLET BY MOUTH EVERY DAY BEFORE MEALS AND AT BEDTIME metoclopramide 5 mg tablet TAKE ONE TABLET BY MOUTH EVERY DAY BEFORE MEALS AND AT BEDTIME completed metoclopramide 5 MG Oral Tablet [facility] ([facility]) Insurance Providers Payer name Policy type / Coverage type Policy ID Covered green party ID Covered green party's relationship to schultz Policy Schultz Plan Information [facility] [id number] SP [id number] [facility]) O [id number] S [id number] Managed Care [facility] P [id number] S [id number] Medicaid S [id number] S [id number] [facility] Care [facility] P [id number] S [id number] MEDICAID [id number] SP [id number] [facility] Care [facility] P [id number] S [id number] Medicaid S [id number] S [id number] [facility] Care [facility] P UNAVAILABLE S UNAVAILABLE Medicaid S [id number] S [id number] [facility] COMMUNITY PLAN [facility] [id number] SP [id number] SELF PAY ONLY SP 1994 SELF PAY UNAVAILABLE SP UNAVAILA BLE MEDICAID GME W [id number] S [id number] [facility] COMM PLAN FHP W [id number] S [id number] MEDICAID W UNAVAILABLE S UNAVAILA BLE SELF PAY P S P UNAVAILABLE UNAVAILA BLE [facility] COMMUNITY PLAN [id number] SP [id number] BLUE CROSS [employer] PLAN [id number] SP [id number] O BLUE [id number] SP [id number] Results ID Date Data Source [id number] 03/17/2020 08:43:00 PM EST [facility] Name Value Range Interpretation Code Description Data Kaye rce(s) Supporting Document(s) SARS coronavirus 2 RNA [Presence] in Res piratory specimen by SULY with probe detection [facility] This lab was ordered by [facility] a nd reported by [facility]. ID Date Data Source [id number] 02/19/2020 11:50:00 AM EST [facility] ([facility]) Name Value Range Interpretation Code Description Data Kaye rce(s) Supporting Document(s) bedside glucose 180 mg/dL 70-105 Above high normal Bedside Gluco se [facility] ([facility]) ID Date Data Source [id number] 02/19/2020 04:20:00 AM EST [facility] ([facility]) Name Value Range Interpretation Code Description Data Kaye rce(s) Supporting Document(s) glucose, fasting 139 mg/dL 70-100 Above high normal Glucose, Fas ting [facility] ([facility]) creatinine for GFR 1.14 mg/dL 0.55-1.30 normal Creatinine for GF R [facility] ([facility]) blood urea nitrogen 21 mg/dL 7-18 Above high normal Blood Ure a Nitrogen [facility] ([facility]) glomerular filtration rate > 60.0 >58 normal Glomerula r Filtration Rate [facility] ([facility]) sodium level 138 mEq/L 136-145 normal Sodium Level [facility] ([facility]) potassium serum 3.6 mEq/L 3.5-5.1 normal Potassium Serum ATH NA ([facility]) carbon dioxide level 25 mEq/L 21-32 normal Carbon Dioxide Level [facility] ([facility]) chloride level 109 mEq/L 98-107 Above high normal Chloride Level [facility] ([facility]) anion gap 4 mEq/L 8-16 Below low normal Anion Gap [facility] ( [facility]) calcium level 8.4 mg/dL 8.5-10.1 Below low normal Calcium Level AT [facility] ([facility]) ID Date Data Source [id number] 02/19/2020 04:20:00 AM EST [facility] ([facility]) Name Value Range Interpretation Code Description Data Kaye rce(s) Supporting Document(s) white blood count 5.8 10 4.0-10.0 normal White Blood Count [facility] ([facility]) red blood count 3.11 10 4.00-5.40 Below low normal Red Blood Coun t [facility] ([facility]) hemoglobin 8.5 g/dL 12.0-15.5 Below low normal Hemoglobin [facility] ( [facility]) hematocrit 26.6 % 36.0-47.0 Below low normal Hematocrit [facility] ( [facility]) mean corpuscular volume 85.5 fL 80.0-96.0 normal Mean Corpusc ular Volume [facility] ([facility]) mean corpuscular hemoglobin 27.3 pg 27.0-33.0 normal Mean Corpuscular Hemoglobin [facility] ([facility]) red cell distribution width 14.7 % 11.5-14.5 Above high no rmal Red Cell Distribution Width [facility] ([facility]) mean corpuscular HGB conc 32.0 g/dL 32.0-36.5 normal Mean Corpu scular HGB Conc [facility] ([facility]) platelet count, automated 256 10 150-450 normal Platelet C ount, Automated [facility] ([facility]) nucleated red blood cell % 0.0 % 0-0 normal Nucleated Red Blood Cell % [facility] ([facility]) ID Date Data Source [id number] 02/18/2020 08:43:00 PM EST [facility] ([facility]) Name Value Range Interpretation Code Description Data Kaye rce(s) Supporting Document(s) bedside glucose 67 mg/dL 70-105 Below low normal Bedside Glucos e [facility] ([facility]) ID Date Data Source [id number] 02/18/2020 08:09:00 PM EST [facility] ([facility]) Name Value Range Interpretation Code Description Data Kaye rce(s) Supporting Document(s) bedside glucose 40 mg/dL 70-105 Below low normal Bedside Glucos e [facility] ([facility]) ID Date Data Source [id number] 02/18/2020 05:03:00 PM EST [facility] ([facility]) Name Value Range Interpretation Code Description Data Kaye rce(s) Supporting Document(s) bedside glucose 112 mg/dL 70-105 Above high normal Bedside Gluco se [facility] ([facility]) ID Date Data Source [id number] 02/18/2020 11:43:00 AM EST [facility] ([facility]) Name Value Range Interpretation Code Description Data Kaye rce(s) Supporting Document(s) bedside glucose 199 mg/dL 70-105 Above high normal Bedside Gluco se [facility] ([facility]) ID Date Data Source [id number] 02/18/2020 10:22:00 AM EST [facility] ([facility]) Name Value Range Interpretation Code Description Data Kaye rce(s) Supporting Document(s) bedside glucose 182 mg/dL 70-105 Above high normal Bedside Gluco se [facility] ([facility]) ID Date Data Source [id number] 02/18/2020 10:20:00 AM EST [facility] ([facility]) Name Value Range Interpretation Code Description Data Kaye rce(s) Supporting Document(s) phosphorus level 1.4 mg/dL 2.5-4.9 Below low normal Phosphorus Le analia [facility] ([facility]) ID Date Data Source [id number] 02/18/2020 10:20:00 AM EST [facility] ([facility]) Name Value Range Interpretation Code Description Data Kaye rce(s) Supporting Document(s) blood urea nitrogen 32 mg/dL 7-18 Above high normal Blood Ure a Nitrogen [facility] ([facility]) glucose, fasting 199 mg/dL 70-100 Above high normal Glucose, Fas ting [facility] ([facility]) creatinine for GFR 1.38 mg/dL 0.55-1.30 Above high normal Creatinine for GFR [facility] ([facility]) glomerular filtration rate >58 Below low normal Beata merular Filtration Rate [facility] ([facility]) sodium level 139 mEq/L 136-145 normal Sodium Level [facility] ([facility]) potassium serum 3.8 mEq/L 3.5-5.1 normal Potassium Serum ATHE NA ([facility]) carbon dioxide level 25 mEq/L 21-32 normal Carbon Dioxide Level [facility] ([facility]) chloride level 109 mEq/L 98-107 Above high normal Chloride Level [facility] ([facility]) anion gap 5 mEq/L 8-16 Below low normal Anion Gap [facility] ( [facility]) calcium level 8.2 mg/dL 8.5-10.1 Below low normal Calcium Level AT [facility] ([facility]) ID Date Data Source [id number] 02/18/2020 09:01:00 AM EST [facility] ([facility]) Name Value Range Interpretation Code Description Data Kaye rce(s) Supporting Document(s) bedside glucose 112 mg/dL 70-105 Above high normal Bedside Gluco se [facility] ([facility]) ID Date Data Source [id number] 02/18/2020 08:03:00 AM EST [facility] ([facility]) Name Value Range Interpretation Code Description Data Kaye rce(s) Supporting Document(s) bedside glucose 123 mg/dL 70-105 Above high normal Bedside Gluco se [facility] ([facility]) ID Date Data Source [id number] 02/18/2020 07:03:00 AM EST [facility] ([facility]) Name Value Range Interpretation Code Description Data Kaye rce(s) Supporting Document(s) bedside glucose 156 mg/dL 70-105 Above high normal Bedside Gluco se [facility] ([facility]) ID Date Data Source [id number] 02/18/2020 06:32:00 AM EST [facility] ([facility]) Name Value Range Interpretation Code Description Data Kaye rce(s) Supporting Document(s) phosphorus level 2.0 mg/dL 2.5-4.9 Below low normal Phosphorus Le analia [facility] ([facility]) ID Date Data Source [id number] 02/18/2020 06:32:00 AM EST [facility] ([facility]) Name Value Range Interpretation Code Description Data Kaye rce(s) Supporting Document(s) glucose, fasting 137 mg/dL 70-100 Above high normal Glucose, Fas ting [facility] ([facility]) blood urea nitrogen 36 mg/dL 7-18 Above high normal Blood Ure a Nitrogen [facility] ([facility]) creatinine for GFR 1.35 mg/dL 0.55-1.30 Above high normal Creatinine for GFR [facility] ([facility]) sodium level 140 mEq/L 136-145 normal Sodium Level [facility] ([facility]) glomerular filtration rate >58 Below low normal Beata merular Filtration Rate [facility] ([facility]) potassium serum 4.2 mEq/L 3.5-5.1 normal Potassium Serum ATHE NA ([facility]) chloride level 109 mEq/L 98-107 Above high normal Chloride Level [facility] ([facility]) anion gap 8 mEq/L 8-16 normal Anion Gap [facility] ([facility]) carbon dioxide level 23 mEq/L 21-32 normal Carbon Dioxide Level [facility] ([facility]) calcium level 8.4 mg/dL 8.5-10.1 Below low normal Calcium Level AT [facility] ([facility]) ID Date Data Source [id number] 02/18/2020 06:32:00 AM EST [facility] ([facility]) Name Value Range Interpretation Code Description Data Kaye rce(s) Supporting Document(s) red blood count 3.39 10 4.00-5.40 Below low normal Red Blood Coun t [facility] ([facility]) white blood count 6.9 10 4.0-10.0 normal White Blood Count [facility] ([facility]) hemoglobin 9.6 g/dL 12.0-15.5 Below low normal Hemoglobin [facility] ( [facility]) hematocrit 28.7 % 36.0-47.0 Below low normal Hematocrit [facility] ( [facility]) mean corpuscular hemoglobin 28.3 pg 27.0-33.0 normal Mean Corpuscular Hemoglobin [facility] ([facility]) mean corpuscular volume 84.7 fL 80.0-96.0 normal Mean Corpusc ular Volume [facility] ([facility]) red cell distribution width 14.8 % 11.5-14.5 Above high no rmal Red Cell Distribution Width [facility] ([facility]) mean corpuscular HGB conc 33.4 g/dL 32.0-36.5 normal Mean Corpu scular HGB Conc [facility] ([facility]) platelet count, automated 300 10 150-450 normal Platelet C ount, Automated [facility] ([facility]) nucleated red blood cell % 0.0 % 0-0 normal Nucleated Red Blood Cell % [facility] ([facility]) ID Date Data Source [id number] 02/18/2020 06:19:00 AM EST [facility] ([facility]) Name Value Range Interpretation Code Description Data Kaye rce(s) Supporting Document(s) bedside glucose 122 mg/dL 70-105 Above high normal Bedside Gluco se [facility] ([facility]) ID Date Data Source [id number] 02/18/2020 05:24:00 AM EST [facility] ([facility]) Name Value Range Interpretation Code Description Data Kaye rce(s) Supporting Document(s) bedside glucose 82 mg/dL 70-105 normal Bedside Glucose ATHE NA ([facility]) ID Date Data Source [id number] 02/18/2020 04:20:00 AM EST [facility] ([facility]) Name Value Range Interpretation Code Description Data Kaye rce(s) Supporting Document(s) bedside glucose 101 mg/dL 70-105 normal Bedside Glucose ATHE NA ([facility]) ID Date Data Source [id number] 02/18/2020 03:13:00 AM EST [facility] ([facility]) Name Value Range Interpretation Code Description Data Kaye rce(s) Supporting Document(s) bedside glucose 133 mg/dL 70-105 Above high normal Bedside Gluco se [facility] ([facility]) ID Date Data Source [id number] 02/18/2020 02:25:00 AM EST [facility] ([facility]) Name Value Range Interpretation Code Description Data Kaye rce(s) Supporting Document(s) phosphorus level 2.1 mg/dL 2.5-4.9 Below low normal Phosphorus Le analia [facility] ([facility]) ID Date Data Source [id number] 02/18/2020 02:25:00 AM EST [facility] ([facility]) Name Value Range Interpretation Code Description Data Kaye rce(s) Supporting Document(s) glucose, fasting 135 mg/dL 70-100 Above high normal Glucose, Fas ting [facility] ([facility]) creatinine for GFR 1.64 mg/dL 0.55-1.30 Above high normal Creatinine for GFR [facility] ([facility]) blood urea nitrogen 41 mg/dL 7-18 Above high normal Blood Ure a Nitrogen [facility] ([facility]) glomerular filtration rate >58 Below low normal Beata merular Filtration Rate [facility] ([facility]) sodium level 139 mEq/L 136-145 normal Sodium Level [facility] ([facility]) potassium serum 3.7 mEq/L 3.5-5.1 normal Potassium Serum ATHE NA ([facility]) chloride level 107 mEq/L 98-107 normal Chloride Level [facility] ([facility]) carbon dioxide level 25 mEq/L 21-32 normal Carbon Dioxide Level [facility] ([facility]) calcium level 8.2 mg/dL 8.5-10.1 Below low normal Calcium Level AT [facility] ([facility]) anion gap 7 mEq/L 8-16 Below low normal Anion Gap [facility] ( [facility]) ID Date Data Source [id number] 02/18/2020 02:23:00 AM EST [facility] ([facility]) Name Value Range Interpretation Code Description Data Kaye rce(s) Supporting Document(s) bedside glucose 135 mg/dL 70-105 Above high normal Bedside Gluco se [facility] ([facility]) ID Date Data Source [id number] 02/18/2020 01:09:00 AM EST [facility] ([facility]) Name Value Range Interpretation Code Description Data Kaye rce(s) Supporting Document(s) bedside glucose 139 mg/dL 70-105 Above high normal Bedside Gluco se [facility] ([facility]) ID Date Data Source [id number] 02/18/2020 12:08:00 AM EST [facility] ([facility]) Name Value Range Interpretation Code Description Data Kaye rce(s) Supporting Document(s) bedside glucose 162 mg/dL 70-105 Above high normal Bedside Gluco se [facility] ([facility]) ID Date Data Source [id number] 02/17/2020 11:37:00 PM EST [facility] ([facility]) Name Value Range Interpretation Code Description Data Kaye rce(s) Supporting Document(s) bedside glucose 103 mg/dL 70-105 normal Bedside Glucose ATHE NA ([facility]) ID Date Data Source [id number] 02/17/2020 10:58:00 PM EST [facility] ([facility]) Name Value Range Interpretation Code Description Data Kaye rce(s) Supporting Document(s) bedside glucose 79 mg/dL 70-105 normal Bedside Glucose ATHE NA ([facility]) ID Date Data Source [id number] 02/17/2020 10:40:00 PM EST [facility] ([facility]) Name Value Range Interpretation Code Description Data Kaye rce(s) Supporting Document(s) bedside glucose 77 mg/dL 70-105 normal Bedside Glucose ATHE NA ([facility]) ID Date Data Source [id number] 02/17/2020 09:17:00 PM EST [facility] ([facility]) Name Value Range Interpretation Code Description Data Kaye rce(s) Supporting Document(s) bedside glucose 191 mg/dL 70-105 Above high normal Bedside Gluco se [facility] ([facility]) ID Date Data Source [id number] 02/17/2020 08:19:00 PM EST [facility] ([facility]) Name Value Range Interpretation Code Description Data Kaye rce(s) Supporting Document(s) phosphorus level 4.3 mg/dL 2.5-4.9 normal Phosphorus Level AT [facility] ([facility]) ID Date Data Source [id number] 02/17/2020 08:19:00 PM EST [facility] ([facility]) Name Value Range Interpretation Code Description Data Kaye rce(s) Supporting Document(s) blood urea nitrogen 48 mg/dL 7-18 Above high normal Blood Ure a Nitrogen [facility] ([facility]) glomerular filtration rate >58 Below low normal Beata merular Filtration Rate [facility] ([facility]) glucose, fasting 314 mg/dL 70-100 Above high normal Glucose, Fas ting [facility] ([facility]) creatinine for GFR 1.81 mg/dL 0.55-1.30 Above high normal Creatinine for GFR [facility] ([facility]) sodium level 134 mEq/L 136-145 Below low normal Sodium Level ATHE NA ([facility]) potassium serum 3.5 mEq/L 3.5-5.1 normal Potassium Serum ATHE NA ([facility]) carbon dioxide level 19 mEq/L 21-32 Below low normal Carbon Di oxide Level ROMAN ([facility]) chloride level 98 mEq/L 98-107 normal Chloride Level ROMAN ([facility]) anion gap 17 mEq/L 8-16 Above high normal Anion Gap ROMAN ([facility]) calcium level 8.9 mg/dL 8.5-10.1 normal Calcium Level ERIN ( [facility]) ID Date Data Source [id number] 02/17/2020 07:12:00 PM EST ROMAN ([facility]) Name Value Range Interpretation Code Description Data Kaye rce(s) Supporting Document(s) bedside glucose 327 mg/dL 70-105 Above high normal Bedside Gluco se ERIN ([facility]) ID Date Data Source [id number] 02/17/2020 06:57:00 PM EST ERIN ([facility]) Name Value Range Interpretation Code Description Data Kaye rce(s) Supporting Document(s) phosphorus level 4.4 mg/dL 2.5-4.9 normal Phosphorus Level AT [facility]) ID Date Data Source [id number] 02/17/2020 06:57:00 PM EST ROMAN ([facility]) Name Value Range Interpretation Code Description Data Kaye rce(s) Supporting Document(s) blood urea nitrogen 50 mg/dL 7-18 Above high normal Blood Ure a Nitrogen ROMAN ([facility]) creatinine for GFR 1.77 mg/dL 0.55-1.30 Above high normal Creatinine for GFR ERIN ([facility]) glomerular filtration rate >58 Below low normal Beata merular Filtration Rate ROMAN ([facility]) glucose, fasting 329 mg/dL 70-100 Above high normal Glucose, Fas ting ROMAN ([facility]) sodium level 132 mEq/L 136-145 Below low normal Sodium Level ATHE NA ([facility]) chloride level 96 mEq/L 98-107 Below low normal Chloride Level ROMAN ([facility]) carbon dioxide level 18 mEq/L 21-32 Below low normal Carbon Di oxide Level ROMAN ([facility]) potassium serum 3.9 mEq/L 3.5-5.1 normal Potassium Serum ATHE NA ([facility]) anion gap 18 mEq/L 8-16 Above high normal Anion Gap ROMAN ([facility]) calcium level 8.9 mg/dL 8.5-10.1 normal Calcium Level ROMAN ( [facility]) ID Date Data Source [id number] 02/17/2020 04:21:00 PM EST ROMAN ([facility]) Name Value Range Interpretation Code Description Data Kaye rce(s) Supporting Document(s) blood urea nitrogen 49 mg/dL 7-18 Above high normal Blood Ure a Nitrogen ROMAN ([facility]) glucose, fasting 337 mg/dL 70-100 Above high normal Glucose, Fas ting ROMAN ([facility]) sodium level 132 mEq/L 136-145 Below low normal Sodium Level ATHE NA ([facility]) potassium serum 4.1 mEq/L 3.5-5.1 normal Potassium Serum ATHE NA ([facility]) creatinine for GFR 1.73 mg/dL 0.55-1.30 Above high normal Creatinine for GFR ROMAN ([facility]) glomerular filtration rate >58 Below low normal Beata merular Filtration Rate ROMAN ([facility]) anion gap 20 mEq/L 8-16 Above high normal Anion Gap ROMAN ([facility]) calcium level 9.5 mg/dL 8.5-10.1 normal Calcium Level ROMAN ( [facility]) chloride level 95 mEq/L 98-107 Below low normal Chloride Level ROMAN ([facility]) carbon dioxide level 17 mEq/L 21-32 Below low normal Carbon Di oxide Level ROMAN ([facility]) ID Date Data Source [id number] 02/17/2020 04:21:00 PM EST ROMAN ([facility]) Name Value Range Interpretation Code Description Data Kaye rce(s) Supporting Document(s) ALT/SGPT 18 U/L 12-78 normal ALT/SGPT ROMAN ([facility]) AST/SGOT 22 U/L 7-37 normal AST/SGOT ROMAN ([facility]) alkaline phosphatase 79 U/L 45-117 normal Alkaline Phosph atase ROMAN ([facility]) bilirubin,total 1.0 mg/dL 0.2-1.0 normal Bilirubin,total ATHE NA ([facility]) total protein 8.2 gm/dL 6.4-8.2 normal Total Protein ROMAN ( [facility]) bilirubin,direct 0.2 mg/dL 0.0-0.2 normal Bilirubin,direct AT [facility] ([facility]) albumin 4.3 gm/dL 3.2-5.2 normal Albumin ROMAN ([facility]) albumin/globulin ratio 1.2-2.2 Below low normal Albumin /globulin Ratio ROMAN ([facility]) ID Date Data Source [id number] 02/17/2020 04:21:00 PM EST ROMAN ([facility]) Name Value Range Interpretation Code Description Data Kaye rce(s) Supporting Document(s) osmolality serum 311 mOsm/kg 275-295 Above high normal Osmolality Serum ROMAN ([facility]) ID Date Data Source [id number] 02/17/2020 04:21:00 PM EST ROMAN ([facility]) Name Value Range Interpretation Code Description Data Kaye rce(s) Supporting Document(s) lipase 68 U/L 73-393 Below low normal Lipase ROMAN ( [facility]) ID Date Data Source [id number] 02/17/2020 04:21:00 PM EST ROMAN ([facility]) Name Value Range Interpretation Code Description Data Kaye rce(s) Supporting Document(s) acetone/ketone > 46.00 <2.81 Above high normal Acetone/ketone ROMAN ([facility]) ID Date Data Source [id number] 02/17/2020 01:36:00 PM EST ROMAN ([facility]) Name Value Range Interpretation Code Description Data Kaye rce(s) Supporting Document(s) sars covid-19 amplification negative negative normal Sars Covid-19 Amplification ROMAN ([facility]) ID Date Data Source [id number] 02/17/2020 01:25:00 PM EST ROMAN ([facility]) Name Value Range Interpretation Code Description Data Kaye rce(s) Supporting Document(s) Hemoglobin A1c/Hemoglobin.total in Blood 8.5 % normal Hemoglobin a1C ERIN ([facility]) estimated average glucose 197 mg/dL 60-110 Above high norm al Estimated Average Glucose ERIN ([facility]) ID Date Data Source [id number] 02/17/2020 01:25:00 PM EST ROMAN ([facility]) Name Value Range Interpretation Code Description Data Kaye rce(s) Supporting Document(s) venous pH 7.371 units 7.330-7.430 normal Venous pH ROMAN ([facility]) venous partial pressure CO2 30.6 mmHg 38.0-50.0 Below low nor mal Venous Partial Pressure CO2 ROMAN ([facility]) venous partial pressure O2 83.8 mmHg 30.0-50.0 Above high nor mal Venous Partial Pressure O2 ROMAN ([facility]) venous base excess -2.0-2.0 Below low normal Venous Base Excess ROMAN ([facility]) venous total CO2 18.3 mEq/L 24.0-28.0 Below low normal Venous Total CO2 ROMAN ([facility]) venous HCO3 17.3 mEq/L 23.0-27.0 Below low [facility] O2 saturation 96.0 % 60.0-80.0 Above high normal Venous O 2 Saturation ERIN ([facility]) venous standard HCO3 18.9 mEq/L normal Venous Standard HCO3 ROMAN ([facility]) ID Date Data Source [id number] 02/17/2020 01:25:00 PM EST ROMAN ([facility]) Name Value Range Interpretation Code Description Data Kaye rce(s) Supporting Document(s) red blood count 3.98 10 4.00-5.40 Below low normal Red Blood Coun t ROMAN ([facility]) hemoglobin 11.0 g/dL 12.0-15.5 Below low normal Hemoglobin ROMAN ( [facility]) white blood count 9.6 10 4.0-10.0 normal White Blood Count ERIN ([facility]) mean corpuscular volume 84.9 fL 80.0-96.0 normal Mean Corpusc ular Volume ERIN ([facility]) hematocrit 33.8 % 36.0-47.0 Below low normal Hematocrit ERIN ( [facility]) red cell distribution width 15.0 % 11.5-14.5 Above high no rmal Red Cell Distribution Width ROMAN ([facility]) mean corpuscular hemoglobin 27.6 pg 27.0-33.0 normal Mean Corpuscular Hemoglobin ROMAN ([facility]) mean corpuscular HGB conc 32.5 g/dL 32.0-36.5 normal Mean Corpu scular HGB Conc ROMAN ([facility]) neutrophils % 78.2 % 36.0-66.0 Above high normal Neutrophils % A THENA ([facility]) lymph % 14.8 % 24.0-44.0 Below low normal Lymph % ERIN ( [facility]) platelet count, automated 333 10 150-450 normal Platelet C ount, Automated ROMAN ([facility]) eos % 0.1 % 0.0-3.0 normal Eos % ROMAN ([facility]) baso % 0.5 % 0.0-1.0 normal Baso % ROMAN ([facility]) mono % 6.1 % 0.0-5.0 Above high normal [place] % ROMAN ([facility]) immature granulocyte % 0.3 % 0-3.0 normal Immature Gran ulocyte % ROMAN ([facility]) neutrophils # 7.5 10 1.5-8.5 normal Neutrophils # ROMAN ( [facility]) nucleated red blood cell % 0.0 % 0-0 normal Nucleated Red Blood Cell % ROMAN ([facility]) eos # 0.0 10 0.0-0.5 normal Eos # ROMAN ([facility]) mono # 0.6 10 0.0-0.8 normal [place] # ROMAN ([facility]) lymph # 1.4 10 1.5-5.0 Below low normal Lymph # ROMAN ( [facility]) baso # 0.1 10 0.0-0.2 normal Baso # ROMAN ([facility]) ID Date Data Source [id number] 02/17/2020 01:25:00 PM EST ERIN ([facility]) Name Value Range Interpretation Code Description Data Kaye rce(s) Supporting Document(s) venous pH 7.371 units 7.330-7.430 normal Venous pH ROMAN ([facility]) venous partial pressure CO2 30.6 mmHg 38.0-50.0 Below low nor mal Venous Partial Pressure CO2 ROMAN ([facility]) venous partial pressure O2 83.8 mmHg 30.0-50.0 Above high nor mal Venous Partial Pressure O2 ROMAN ([facility]) venous total CO2 18.3 mEq/L 24.0-28.0 Below low normal Venous Total CO2 ROMAN ([facility]) venous base excess -2.0-2.0 Below low normal Venous Base Excess ROMAN ([facility]) venous standard HCO3 18.9 mEq/L normal Venous Standard HCO3 ROMAN ([facility]) venous HCO3 17.3 mEq/L 23.0-27.0 Below low normal Venous HCO3 ROMAN ([facility]) venous O2 saturation 96.0 % 60.0-80.0 Above high normal Venous O 2 Saturation ERIN ([facility]) ID Date Data Source [id number] 02/17/2020 01:22:00 PM EST ROMAN ([facility]) Name Value Range Interpretation Code Description Data Kaye rce(s) Supporting Document(s) istat HCT 37.0 % 38.0-51.0 Below low normal Istat HCT ROMAN ( [facility]) istat glucose 359 mg/dL 70-105 Above high normal Istat Glucose A THENA ([facility]) istat sodium 127 mEq/L 136-145 Below low normal Istat Sodium ATHE NA ([facility]) istat Ca++ 3.8 mg/dL 4.5-5.3 Below low normal Istat Ca++ ROMAN ( [facility]) istat potassium 7.8 mEq/L 3.5-5.1 Above high normal Istat Potassi um ROMAN ([facility]) istat CO2 21.0 mm/L 23.0-27.0 Below low normal Istat CO2 ROMAN ( [facility]) istat chloride 96 mEq/L 98-109 Below low normal Istat Chloride ROMAN ([facility]) istat creatinine 1.6 mg/dL 0.6-1.3 Above high normal Istat Creati nine ROMAN ([facility]) istat BUN 70 mg/dL 8-26 Above high normal Istat BUN ROMAN ([facility]) ID Date Data Source [id number] 11/30/2019 04:55:[address] [facility] Name Value Range Interpretation Code Description Data Kaye rce(s) Supporting Document(s) BG FASTING 304 mg/dL 70-[address] [facility] ID Date Data Source [id number] 11/30/2019 04:55:[address] [facility] Name Value Range Interpretation Code Description Data Kaye rce(s) Supporting Document(s) HCT 31.4 % 36.0-47.[address] [facility] HGB 10.6 g/dL 12.0-15.[address] [facility] MCH 33.8 G/DL pg 32.0-36.5 N [facility] MCHC 28.6 PG % 27.0-33.[address] [facility] PLATELETS 319 10 10*3/mm3 150-[address] [facility] RBC 3.71 10 10*6/mm3 4.00-5.[address] [facility] RDW 14.7 % 11.5-14.[address] [facility] WBC TOTAL 10.0 4.0-10.0 N [facility] ID Date Data Source [id number] 10/23/2019 11:54:[address] [facility] Name Value Range Interpretation Code Description Data Kaye rce(s) Supporting Document(s) BG FASTING 97 mg/dL 70-100 N [facility] ID Date Data Source [id number] 10/23/2019 06:41:[address] [facility] Name Value Range Interpretation Code Description Data Kaye rce(s) Supporting Document(s) BG FASTING 296 mg/dL 70-100 H [facility] ID Date Data Source [id number] 10/23/2019 06:41:[address] [facility] Name Value Range Interpretation Code Description Data Kaye rce(s) Supporting Document(s) HCT 27.7 % 36.0-47.[address] [facility] HGB 9.1 g/dL 12.0-15.[address] [facility] MCH 32.9 G/DL pg 32.0-[facility] MCHC 28.0 PG % 27.0-33.[address] [facility] PLATELETS 279 10 10*3/mm3 150-[address] [facility] RBC 3.25 10 10*6/mm3 4.00-5.40 L [facility] RDW 16.7 % 11.5-14.5 H [facility] WBC TOTAL 8.3 4.0-10.0 N [facility] ID Date Data Source [id number] 10/22/2019 05:25:[address] [facility] Name Value Range Interpretation Code Description Data Kaye rce(s) Supporting Document(s) HCT 26.0 % 36.0-47.0 L [facility] HGB 8.7 g/dL 12.0-15.5 L [facility] MCH 33.5 G/DL pg 32.0-36.5 N [facility] MCHC 28.2 PG % 27.0-33.0 N [facility] PLATELETS 234 10 10*3/mm3 150-450 N [facility] RBC 3.09 10 10*6/mm3 4.00-5.[address] [facility] RDW 16.2 % 11.5-14.5 H [facility] WBC TOTAL 9.0 4.0-10.0 N [facility] ID Date Data Source [id number] 10/22/2019 05:25:[address] [facility] Name Value Range Interpretation Code Description Data Kaye rce(s) Supporting Document(s) BG FASTING 257 mg/dL 70-100 H [facility] ID Date Data Source [id number] 10/21/2019 03:16:[address] [facility] Name Value Range Interpretation Code Description Data Kaye rce(s) Supporting Document(s) HCT 29.0 % 36.0-47.0 L [facility] HGB 9.6 g/dL 12.0-15.5 L [facility] MCH 33.1 G/DL pg 32.0-36.5 N [facility] MCHC 28.6 PG % 27.0-33.[address] [facility] PLATELETS 162 10 10*3/mm3 150-[address] [facility] RBC 3.36 10 10*6/mm3 4.00-5.[address] [facility] RDW 16.4 % 11.5-14.[address] [facility] WBC TOTAL 8.2 4.0-10.[address] [facility] Procedure Vital Signs ID Date Data Source [id number] Name Value Range Interpretation Code Description Data Source(s) Body weight 2680 [oz_av] 2680 [oz_av] ROMAN ([facility]) Systolic blood pressure 114 mm[Hg] 114 mm[Hg] A THENA ([facility]) Body mass index (BMI) [Ratio] 26.2 kg/m2 26.2 k g/m2 ERIN ([facility]) Body height 67 [in_i] 67 [in_i] ROMAN ([facility]) Diastolic blood pressure 77 mm[Hg] 77 mm[Hg] ROMAN ([facility]) Patient Treatment Plan of Care Planned Activity Planned Date Details Description Data Source (s) Prochlorperazine 25 MG Rectal Suppository ROMAN ([facility]) Penicillin V Potassium 500 MG Oral Tablet ROMAN ([facility]) Oxycodone Hydrochloride 5 MG Oral Tablet ROMAN ([facility]) Ondansetron 4 MG Oral Tablet ROMAN ([facility]) Omeprazole 20 MG Delayed Release Oral Capsule ROMAN ([facility]) Metoclopramide 5 MG Oral Tablet ROMAN ([facility]) Metoclopramide 10 MG Oral Tablet ROMAN ([facility])
[2020-05-19 13:25] LABS: AMPHETAMINES LEVEL URINE NEGATIVE (NEGATIVE); BARBITURATES URINE NEGATIVE (NEGATIVE); BENZODIAZEPINES URINE NEGATIVE (NEGATIVE); CANNABINOIDS URINE POSITIVE (NEGATIVE); COCAINE METABOLITE URINE NEGATIVE (NEGATIVE); METHADONE URINE NEGATIVE (NEGATIVE); OPIATES URINE NEGATIVE (NEGATIVE); PHENCYCLIDINE URINE NEGATIVE (NEGATIVE)
[2020-05-19 17:15] VITALS: BP 136/84
--- NOTE | 2020-05-20 20:37 | ECGEPIP ---
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
== END 2020-05-19 17:36 | disposition home or self-care (01) ==
LOC: M ED 10:26
DX: E10.43 Type 1 diabetes mellitus with diabetic autonomic (poly)neuropathy (principal); E10.649 Type 1 diabetes mellitus with hypoglycemia without coma; I10 Essential (primary) hypertension; F12.188 Cannabis abuse with other cannabis-induced disorder; Z87.891 Personal history of nicotine dependence
CPT/HCPCS: 36600; 71045; 80047; 80048; 80076; 80307; 81001; 82010; 82803; 83036; 83605; 83690; 85025; 87798; 93005; 93041; 96361; 96374; 96375; 99285; J1630

== ENCOUNTER 2020-05-30 09:28 | Emergency (ER) | payer OTHER ==
[~2020-05-30] VITALS: Ht 170.2 cm; Wt 68.1 kg
--- OUTSIDE RECORDS SUMMARY | 2020-05-30 09:36 | CCD ---
Author Author [facility] Organization [facility] Address Unknown Phone Unavailable Care Team Providers Care Station Mechanic Name Role Phone Scordo, M Katie PA [...] Unavailable Lewis, K Jennifer MD Unavailable Unavailable Leiws, K Jennifer MD Unavailable Unavailable Lewis, K [...] is protected by Article 27-F of the [facility] Public Health law. If you continue you may have access to information: Regarding HIV / AIDS; Provided by facilities licensed or operated by the [facility] Office of Mental Health; or Provided by the [facility] Office for People With Developmental Disabilities. If such information is present, then the following [facility] mandated warning applies: This information has been [...] law may result in a fine or skilled nursing sentence or both. A general authorization for the release of medical or other information is NOT sufficient authorization for further disc losure. Encounters Encounter Providers Location Date Indications Data Source(s ) Katie Yoo PA-C: [address] [place] [id number], Ph. Attender: Katie [facility] Medical 02/23/2020 12:00:00 AM EST [facility] ([facility]) Outpatient Attender: Abraham Lopez MD FP 02/22/2020 02:58:01 PM EST [facility] Outpatient Attender: Abraham Lopez MD FP 12/06/2019 09:43:02 AM EDT [facility] Outpatient Attender: Abraham Lopez MD FP 12/06/2019 09:43:00 AM EDT [facility] Outpatient Attender: Abraham Lopez MD FP 12/06/2019 09:42:01 AM EDT [facility] Outpatient Attender: Abraham Lopez MD FP 12/06/2019 09:42:00 AM EDT [facility] Outpatient Attender: Abraham Lopez MD FP 11/01/2019 01:52:00 PM EDT [facility] Outpatient Attender: Abraham Lopez MD FP 10/24/2019 03:50:02 PM EDT [facility] Outpatient Attender: Abraham Lopez MD FP 10/24/2019 08:46:04 AM EDT [facility] Outpatient Attender: Abraham Lopez MD FP 10/24/2019 08:46:02 AM EDT [facility] Outpatient Attender: Abraham Lopez MD FP 10/24/2019 08:41:04 AM EDT [facility] Outpatient Attender: Abraham Lopez MD FP 10/24/2019 08:41:01 AM EDT [facility] Outpatient Attender: Abraham Lopez MD FP 10/24/2019 08:40:04 AM EDT [facility] Outpatient Attender: Abraham Lopez MD FP 10/24/2019 08:40:04 AM EDT [facility] Outpatient Attender: Abraham Lopez MD FP 10/24/2019 08:34:03 AM EDT [facility] Outpatient Attender: Abraham Lopez MD FP 10/24/2019 08:34:02 AM EDT [facility] Outpatient Attender: Abraham Lopez MD FP 10/21/2019 04:57:00 PM EDT [facility] Outpatient Attender: Abraham Lopez MD FP 10/21/2019 04:57:00 PM EDT [facility] Outpatient Attender: Abraham Lopez MD FP 10/20/2019 01:10:00 PM EDT [facility] Outpatient Attender: Abraham Lopez MD FP 10/18/2019 09:07:01 AM EDT [facility] Outpatient Referrer: Jennifer Lewis MD 09/15/2019 05:43:00 AM EDT [facility] Outpatient Attender: Abraham Lopez MD FP 09/13/2019 07:55:13 PM EDT [facility] Outpatient Attender: Abraham CRUZ 09/09/2019 02:28:00 PM EDT [facility] Outpatient Attender: Abraham CRUZ 09/05/2019 03:25:59 PM EDT [facility] Outpatient Attender: Abraham Lopez MD FP 09/02/2019 10:44:00 AM EDT [facility] Outpatient Referrer: Jennifer Lewis MD 07/20/2019 05:01:00 AM EDT [facility] Outpatient Referrer: Jennifer Lewis MD 07/19/2019 08:40:00 AM EDT [facility] Outpatient Attender: Abraham Lopez MD FP 07/13/2019 11:27:04 AM EDT [facility] Outpatient Referrer: Jennifer Lewis MD 06/28/2019 06:29:00 AM EDT [facility] Outpatient Attender: Abraham Lopez MD FP 06/27/2019 10:49:00 AM EDT [facility] Outpatient Attender: Abraham Lopez MD FP 06/24/2019 09:00:02 AM EDT [facility] Outpatient Referrer: Jennifer Lewis MD 06/06/2019 03:46:00 PM EST [facility] Outpatient Attender: Abraham Lopez MD FP 06/02/2019 12:31:00 PM EST [facility] Outpatient Attender: Abraham Lopez MD FP 06/01/2019 10:49:01 AM EST [facility] Medications Medication Brand Name Start Date [...] DOSE = 50 UNITS SOLD: 02/20/2020 [facility] 31 gauge x 5/16" 02/19/2020 12:00:00 AM EST needle 100 USE [...] 8 UNITS SUBCUTANEOUSLY AT BEDTIME SOLD: 02/20/2020 [facility] BLOOD-GLUCOSE METER 02/19/2020 12:00:00 AM EST [...] V potassium 500 MG Oral Tablet [facility] ([facility]) Ondansetron 4 MG Oral Tablet ondansetron HCl 4 mg tabl et ondansetron HCl 4 mg tablet completed ondansetron 4 M G Oral Tablet [facility] ([facility]) Metoclopramide 10 MG Oral Tablet metoclopramide 10 mg tablet metoclopramide 10 mg tablet completed metocloprami de 10 MG Oral Tablet [facility] ([facility]) Oxycodone Hydrochloride 5 MG Oral Tablet oxycodone 5 m g tablet oxycodone 5 mg tablet completed oxycodone hydro chloride 5 MG Oral Tablet [facility] ([facility]) Omeprazole 20 MG Delayed Release Oral Ca psule omeprazole 20 mg capsule,delayed release TAKE ONE CAPSULE BY MOUTH TWICE A DAY omeprazole 20 mg capsule,delayed release TAKE ONE CAPSULE BY MOUTH TWICE A DAY completed omeprazole 20 MG Delayed Release Oral Capsule [facility] ([facility]) Prochlorperazine 25 MG Rectal Suppositor y prochlorperazine 25 mg rectal suppository INSERT ONE SUPPOSITORY RECTALLY EVERY 8 HOURS NEEDED FOR NAUSEA prochlorperazine 25 mg rectal suppository INSERT ONE SUPPOSITORY RECTALLY EVERY 8 HOURS NEEDED FOR NAUSEA completed prochlorperazine 25 MG Rectal Suppository [facility] ([facility]) Metoclopramide 5 MG Oral Tablet metoclop ramide 5 mg tablet TAKE ONE TABLET BY MOUTH EVERY DAY BEFORE MEALS AND AT BEDTIME metoclopramide 5 mg tablet TAKE ONE TABLET BY MOUTH EVERY DAY BEFORE MEALS AND AT BEDTIME completed metoclopramide 5 MG Oral Tablet [facility] ([facility]) Insurance Providers Payer name Policy type / Coverage type Policy ID Covered republican ID Covered republican's relationship to schultz Policy Schultz Plan Information [facility] [id number] SP [id number] [facility] O [id number] S [id number] Managed [facility] P [id number] S [id number] Medicaid S [id number] S [id number] [facility] P [id number] S [id number] MEDICAID [id number] SP [id number] Managed [facility] P [id number] S [id number] Medicaid S [id number] S [id number] Managed [facility] P UNAVAILABLE S UNAVAILABLE Medicaid S [id number] S [id number] [facility] PLAN [facility] [id number] SP [id number] SELF PAY ONLY SP 1994 SELF PAY UNAVAILABLE SP UNAVAILA BLE MEDICAID GME W [id number] S [id number] [facility] COMM PLAN [facility] W [id number] S [id number] MEDICAID W UNAVAILABLE S UNAVAILA BLE SELF PAY P S P UNAVAILABLE UNAVAILA BLE [employer] COMMUNITY PLAN [id number] SP 00 BLUE CROSS BELTRAN PLAN [id number] [facility] BLUE [id number] Results ID Date Data Source [id number] 05/19/2020 11:28:00 AM EST [facility] Name Value Range Interpretation Code Description Data Kaye rce(s) Supporting Document(s) SARS-CoV-2 (COVID 19) NEGATIVE - SARS-CoV-2 (COVID19) [facility] This lab was ordered by [facility] a nd reported by [facility]. ID Date Data Source [id number] 05/19/2020 11:06:00 AM EST [facility] Name Value Range Interpretation Code Description Data Kaye rce(s) Supporting Document(s) SARS COVID ANTIGEN NEGATIVE [facility] This lab was ordered by [facility] a nd reported by [facility]. ID Date Data Source [id number] 03/17/2020 08:43:00 PM EST [facility] Name Value Range Interpretation Code Description Data Kaye rce(s) Supporting Document(s) SARS coronavirus 2 RNA [Presence] in Res piratory specimen by SULY with probe detection [facility] This lab was ordered by [facility] a nd reported by [facility]. ID Date Data Source [id number] 02/19/2020 11:50:00 AM EST [facility] ([facility]) Name Value Range Interpretation Code Description Data Kaye rce(s) Supporting Document(s) bedside glucose 180 mg/dL 70-105 Above high normal Bedside Gluco se [facility] ([facility]) ID Date Data Source [id number] 02/19/2020 04:20:00 AM EST [facility] ([facility]) Name Value Range Interpretation Code Description Data Kaye rce(s) Supporting Document(s) glucose, fasting 139 mg/dL 70-100 Above high normal Glucose, Fas ting [place] ([facility]) creatinine for GFR 1.14 mg/dL 0.55-1.30 normal Creatinine for GF R [facility] ([facility]) blood urea nitrogen 21 mg/dL 7-18 Above high normal Blood Ure a Nitrogen [facility] ([facility]) glomerular filtration rate > 60.0 >58 normal Glomerula r Filtration Rate [facility] ([facility]) sodium level 138 mEq/L 136-145 normal Sodium Level [facility] ([facility]) potassium serum 3.6 mEq/L 3.5-5.1 normal Potassium Serum AT[facility] NA ([facility]) carbon dioxide level 25 mEq/L 21-32 normal Carbon Dioxide Level [facility] ([facility]) chloride level 109 mEq/L 98-107 Above high normal Chloride Level [facility] ([facility]) anion gap 4 mEq/L 8-16 Below low normal Anion Gap [place] ( [facility]) calcium level 8.4 mg/dL 8.5-10.1 Below low normal Calcium Level AT [facility]) ID Date Data Source [id number] 02/19/2020 04:20:00 AM EST [place] ([facility]) Name Value Range Interpretation Code Description Data Kaye rce(s) Supporting Document(s) white blood count 5.8 10 4.0-10.0 normal White Blood Count [place] ([facility]) red blood count 3.11 10 4.00-5.40 Below low normal Red Blood Coun t [facility] ([facility]) hemoglobin 8.5 g/dL 12.0-15.5 Below low normal Hemoglobin [facility] ( [facility]) hematocrit 26.6 % 36.0-47.0 Below low normal Hematocrit [facility] ( [facility]) mean corpuscular volume 85.5 fL 80.0-96.0 normal Mean Corpusc ular Volume [place] ([facility]) mean corpuscular hemoglobin 27.3 pg 27.0-33.0 normal Mean Corpuscular Hemoglobin [place] ([facility]) red cell distribution width 14.7 % 11.5-14.5 Above high no rmal Red Cell Distribution Width [facility] ([facility]) mean corpuscular HGB conc 32.0 g/dL 32.0-36.5 normal Mean Corpu scular HGB Conc [facility] ([facility]) platelet count, automated 256 10 150-450 normal Platelet C ount, Automated [facility] ([facility]) nucleated red blood cell % 0.0 % 0-0 normal Nucleated Red Blood Cell % [facility] ([facility]) ID Date Data Source [id number] 02/18/2020 08:43:00 PM EST [facility] ([facility]) Name Value Range Interpretation Code Description Data Kaye rce(s) Supporting Document(s) bedside glucose 67 mg/dL 70-105 Below low normal Bedside Glucos e [facility] ([facility]) ID Date Data Source [id number] 02/18/2020 08:09:00 PM EST [facility] ([facility]) Name Value Range Interpretation Code Description Data Kaye rce(s) Supporting Document(s) bedside glucose 40 mg/dL 70-105 Below low normal Bedside Glucos e [facility] ([facility]) ID Date Data Source [id number] 02/18/2020 05:03:00 PM EST [facility] ([facility]) Name Value Range Interpretation Code Description Data Kaye rce(s) Supporting Document(s) bedside glucose 112 mg/dL 70-105 Above high normal Bedside Gluco se [facility] ([facility]) ID Date Data Source [id number] 02/18/2020 11:43:00 AM EST [facility] ([facility]) Name Value Range Interpretation Code Description Data Kaye rce(s) Supporting Document(s) bedside glucose 199 mg/dL 70-105 Above high normal Bedside Gluco se [facility] ([facility]) ID Date Data Source [id number] 02/18/2020 10:22:00 AM EST [facility] ([facility]) Name Value Range Interpretation Code Description Data Kaye rce(s) Supporting Document(s) bedside glucose 182 mg/dL 70-105 Above high normal Bedside Gluco se [facility] ([facility]) ID Date Data Source [id number] 02/18/2020 10:20:00 AM EST [facility] ([facility]) Name Value Range Interpretation Code Description Data Kaye rce(s) Supporting Document(s) phosphorus level 1.4 mg/dL 2.5-4.9 Below low normal Phosphorus Le analia [facility] ([facility]) ID Date Data Source [id number] 02/18/2020 10:20:00 AM EST [facility] ([facility]) Name Value Range Interpretation Code Description Data Kaye rce(s) Supporting Document(s) blood urea nitrogen 32 mg/dL 7-18 Above high normal Blood Ure a Nitrogen [facility] ([facility]) glucose, fasting 199 mg/dL 70-100 Above high normal Glucose, Fas ting [facility] ([facility]) creatinine for GFR 1.38 mg/dL 0.55-1.30 Above high normal Creatinine for GFR [place] ([facility]) glomerular filtration rate >58 Below low normal Beata merular Filtration Rate [facility] ([facility]) sodium level 139 mEq/L 136-145 normal Sodium Level [facility] ([facility]) potassium serum 3.8 mEq/L 3.5-5.1 normal Potassium Serum ATHE NA ([facility]) carbon dioxide level 25 mEq/L 21-32 normal Carbon Dioxide Level [facility] ([facility]) chloride level 109 mEq/L 98-107 Above high normal Chloride Level [facility] ([facility]) anion gap 5 mEq/L 8-16 Below low normal Anion Gap [facility] ( [facility]) calcium level 8.2 mg/dL 8.5-10.1 Below low normal Calcium Level AT [facility]) ID Date Data Source [id number] 02/18/2020 09:01:00 AM EST [facility] ([facility]) Name Value Range Interpretation Code Description Data Kaye rce(s) Supporting Document(s) bedside glucose 112 mg/dL 70-105 Above high normal Bedside Gluco se [facility] ([facility]) ID Date Data Source [id number] 02/18/2020 08:03:00 AM EST [facility] ([facility]) Name Value Range Interpretation Code Description Data Kaye rce(s) Supporting Document(s) bedside glucose 123 mg/dL 70-105 Above high normal Bedside Gluco se [facility] ([facility]) ID Date Data Source [id number] 02/18/2020 07:03:00 AM EST [facility] ([facility]) Name Value Range Interpretation Code Description Data Kaye rce(s) Supporting Document(s) bedside glucose 156 mg/dL 70-105 Above high normal Bedside Gluco se [facility] ([facility]) ID Date Data Source [id number] 02/18/2020 06:32:00 AM EST [facility] ([facility]) Name Value Range Interpretation Code Description Data Kaye rce(s) Supporting Document(s) phosphorus level 2.0 mg/dL 2.5-4.9 Below low normal Phosphorus Le analia [facility] ([facility]) ID Date Data Source [id number] 02/18/2020 06:32:00 AM EST [facility] ([facility]) Name Value Range Interpretation Code Description Data Kaye rce(s) Supporting Document(s) glucose, fasting 137 mg/dL 70-100 Above high normal Glucose, Fas ting [facility] ([facility]) blood urea nitrogen 36 mg/dL 7-18 Above high normal Blood Ure a Nitrogen [facility] ([facility]) creatinine for GFR 1.35 mg/dL 0.55-1.30 Above high normal Creatinine for GFR [facility] ([facility]) sodium level 140 mEq/L 136-145 normal Sodium Level [facility] ([facility]) glomerular filtration rate >58 Below low normal Beata merular Filtration Rate [place] ([facility]) potassium serum 4.2 mEq/L 3.5-5.1 normal Potassium Serum AT[facility] ([facility]) chloride level 109 mEq/L 98-107 Above high normal Chloride Level [facility] ([facility]) anion gap 8 mEq/L 8-16 normal Anion Gap [facility] ([facility]) carbon dioxide level 23 mEq/L 21-32 normal Carbon Dioxide Level [place] ([facility]) calcium level 8.4 mg/dL 8.5-10.1 Below low normal Calcium Level AT [facility] ([facility]) ID Date Data Source [id number] 02/18/2020 06:32:00 AM EST [place] ([facility]) Name Value Range Interpretation Code Description Data Kaye rce(s) Supporting Document(s) red blood count 3.39 10 4.00-5.40 Below low normal Red Blood Coun t [place] ([facility]) white blood count 6.9 10 4.0-10.0 normal White Blood Count [place] ([facility]) hemoglobin 9.6 g/dL 12.0-15.5 Below low normal Hemoglobin [facility] ( [facility]) hematocrit 28.7 % 36.0-47.0 Below low normal Hematocrit [place] ( [facility]) mean corpuscular hemoglobin 28.3 pg 27.0-33.0 normal Mean Corpuscular Hemoglobin [place] ([facility]) mean corpuscular volume 84.7 fL 80.0-96.0 normal Mean Corpusc ular Volume [facility] ([facility]) red cell distribution width 14.8 % 11.5-14.5 Above high no rmal Red Cell Distribution Width [facility] ([facility]) mean corpuscular HGB conc 33.4 g/dL 32.0-36.5 normal Mean Corpu scular HGB Conc [facility] ([facility]) platelet count, automated 300 10 150-450 normal Platelet C ount, Automated [facility] ([facility]) nucleated red blood cell % 0.0 % 0-0 normal Nucleated Red Blood Cell % [facility] ([facility]) ID Date Data Source [id number] 02/18/2020 06:19:00 AM EST [facility] ([facility]) Name Value Range Interpretation Code Description Data Kaye rce(s) Supporting Document(s) bedside glucose 122 mg/dL 70-105 Above high normal Bedside Gluco se [facility] ([facility]) ID Date Data Source [id number] 02/18/2020 05:24:00 AM EST [facility] ([facility]) Name Value Range Interpretation Code Description Data Kaye rce(s) Supporting Document(s) bedside glucose 82 mg/dL 70-105 normal Bedside Glucose A[facility] NA ([facility]) ID Date Data Source [id number] 02/18/2020 04:20:00 AM EST [facility] ([facility]) Name Value Range Interpretation Code Description Data Kaye rce(s) Supporting Document(s) bedside glucose 101 mg/dL 70-105 normal Bedside Glucose [facility] ([facility]) ID Date Data Source [id number] 02/18/2020 03:13:00 AM EST [facility] ([facility]) Name Value Range Interpretation Code Description Data Kaye rce(s) Supporting Document(s) bedside glucose 133 mg/dL 70-105 Above high normal Bedside Gluco se [facility] ([facility]) ID Date Data Source [id number] 02/18/2020 02:25:00 AM EST [facility] ([facility]) Name Value Range Interpretation Code Description Data Kaye rce(s) Supporting Document(s) phosphorus level 2.1 mg/dL 2.5-4.9 Below low normal Phosphorus Le analia [facility] ([facility]) ID Date Data Source [id number] 02/18/2020 02:25:00 AM EST [facility] ([facility]) Name Value Range Interpretation Code Description Data Kaye rce(s) Supporting Document(s) glucose, fasting 135 mg/dL 70-100 Above high normal Glucose, Fas ting [facility] ([facility]) creatinine for GFR 1.64 mg/dL 0.55-1.30 Above high normal Creatinine for GFR [place] ([facility]) blood urea nitrogen 41 mg/dL 7-18 Above high normal Blood Ure a Nitrogen [facility] ([facility]) glomerular filtration rate >58 Below low normal Beata merular Filtration Rate [facility] ([facility]) sodium level 139 mEq/L 136-145 normal Sodium Level [facility] ([facility]) potassium serum 3.7 mEq/L 3.5-5.1 normal Potassium Serum A[facility] ([facility]) chloride level 107 mEq/L 98-107 normal Chloride Level [place] ([facility]) carbon dioxide level 25 mEq/L 21-32 normal Carbon Dioxide Level [place] ([facility]) calcium level 8.2 mg/dL 8.5-10.1 Below low normal Calcium Level AT [facility] ([facility]) anion gap 7 mEq/L 8-16 Below low normal Anion Gap [place] ( [facility]) ID Date Data Source [id number] 02/18/2020 02:23:00 AM EST [facility]) Name Value Range Interpretation Code Description Data Kaye rce(s) Supporting Document(s) bedside glucose 135 mg/dL 70-105 Above high normal Bedside Gluco se [facility]) ID Date Data Source [id number] 02/18/2020 01:09:00 AM EST [facility]) Name Value Range Interpretation Code Description Data Kaye rce(s) Supporting Document(s) bedside glucose 139 mg/dL 70-105 Above high normal Bedside Gluco se [facility]) ID Date Data Source [id number] 02/18/2020 12:08:00 AM EST [facility]) Name Value Range Interpretation Code Description Data Kaye rce(s) Supporting Document(s) bedside glucose 162 mg/dL 70-105 Above high normal Bedside Gluco se [facility] ([facility]) ID Date Data Source [id number] 02/17/2020 11:37:00 PM EST [facility] ([facility]) Name Value Range Interpretation Code Description Data Kaye rce(s) Supporting Document(s) bedside glucose 103 mg/dL 70-105 normal Bedside Glucose [facility] ([facility]) ID Date Data Source [id number] 02/17/2020 10:58:00 PM EST [facility] ([facility]) Name Value Range Interpretation Code Description Data Kaye rce(s) Supporting Document(s) bedside glucose 79 mg/dL 70-105 normal Bedside Glucose [facility] ([facility]) ID Date Data Source [id number] 02/17/2020 10:40:00 PM EST [facility] ([facility]) Name Value Range Interpretation Code Description Data Kaye rce(s) Supporting Document(s) bedside glucose 77 mg/dL 70-105 normal Bedside Glucose [facility] ([facility]) ID Date Data Source [id number] 02/17/2020 09:17:00 PM EST [facility] ([facility]) Name Value Range Interpretation Code Description Data Kaye rce(s) Supporting Document(s) bedside glucose 191 mg/dL 70-105 Above high normal Bedside Gluco se [facility] ([facility]) ID Date Data Source [id number] 02/17/2020 08:19:00 PM EST [facility] ([facility]) Name Value Range Interpretation Code Description Data Kaye rce(s) Supporting Document(s) phosphorus level 4.3 mg/dL 2.5-4.9 [address] Level [address] [facility] ([facility]) ID Date Data Source [id number] 02/17/2020 08:19:00 PM EST [facility] ([facility]) Name Value Range Interpretation Code Description Data Kaye rce(s) Supporting Document(s) blood urea nitrogen 48 mg/dL 7-18 Above high normal Blood Ure a Nitrogen [facility] ([facility]) glomerular filtration rate >58 Below low normal Beata merular Filtration Rate [facility] ([facility]) glucose, fasting 314 mg/dL 70-100 Above high normal Glucose, Fas ting ROMAN ([facility]) creatinine for GFR 1.81 mg/dL 0.55-1.30 Above high normal Creatinine for GFR ROMAN ([facility]) sodium level 134 mEq/L 136-145 Below low normal Sodium Level ATHE NA ([facility]) potassium serum 3.5 mEq/L 3.5-5.1 normal Potassium Serum ATHE NA ([facility]) carbon dioxide level 19 mEq/L 21-32 Below low normal Carbon Di oxide Level ROMAN ([facility]) chloride level 98 mEq/L 98-107 normal Chloride Level ROMAN ([facility]) anion gap 17 mEq/L 8-16 Above high normal Anion Gap ROMAN ([facility]) calcium level 8.9 mg/dL 8.5-10.1 normal Calcium Level [place] ( [facility]) ID Date Data Source [id number] 02/17/2020 07:12:00 PM EST ROMAN ([facility]) Name Value Range Interpretation Code Description Data Kaye rce(s) Supporting Document(s) bedside glucose 327 mg/dL 70-105 Above high normal Bedside Gluco se ROMAN ([facility]) ID Date Data Source [id number] 02/17/2020 06:57:00 PM EST ROMAN ([facility]) Name Value Range Interpretation Code Description Data Kaye rce(s) Supporting Document(s) phosphorus level 4.4 mg/dL 2.5-4.9 normal Phosphorus Level AT [facility]) ID Date Data Source [id number] 02/17/2020 06:57:00 PM EST ROMAN ([facility]) Name Value Range Interpretation Code Description Data Kaye rce(s) Supporting Document(s) blood urea nitrogen 50 mg/dL 7-18 Above high normal Blood Ure a Nitrogen ROMAN ([facility]) creatinine for GFR 1.77 mg/dL 0.55-1.30 Above high normal Creatinine for GFR ROMAN ([facility]) glomerular filtration rate >58 Below low normal Beata merular Filtration Rate ROMAN ([facility]) glucose, fasting 329 mg/dL 70-100 Above high normal Glucose, Fas ting ROMAN ([facility]) sodium level 132 mEq/L 136-145 Below low normal Sodium Level ATHE NA ([facility]) chloride level 96 mEq/L 98-107 Below low normal Chloride Level [place] ([facility]) carbon dioxide level 18 mEq/L 21-32 Below low normal Carbon Di oxide Level [place] ([facility]) potassium serum 3.9 mEq/L 3.5-5.1 normal Potassium Serum ATHE NA ([facility]) anion gap 18 mEq/L 8-16 Above high normal Anion Gap ROMAN ([facility]) calcium level 8.9 mg/dL 8.5-10.1 normal Calcium Level [place] ( [facility]) ID Date Data Source [id number] 02/17/2020 04:21:00 PM EST ROMAN ([facility]) Name Value Range Interpretation Code Description Data Kaye rce(s) Supporting Document(s) blood urea nitrogen 49 mg/dL 7-18 Above high normal Blood Ure a Nitrogen ROMAN ([facility]) glucose, fasting 337 mg/dL 70-100 Above high normal Glucose, Fas ting [place] ([facility]) sodium level 132 mEq/L 136-145 Below low normal Sodium Level ATHE NA ([facility]) potassium serum 4.1 mEq/L 3.5-5.1 normal Potassium Serum ATHE NA ([facility]) creatinine for GFR 1.73 mg/dL 0.55-1.30 Above high normal Creatinine for GFR ROMAN ([facility]) glomerular filtration rate >58 Below low normal Beata merular Filtration Rate ROMAN ([facility]) anion gap 20 mEq/L 8-16 Above high normal Anion Gap ROMAN ([facility]) calcium level 9.5 mg/dL 8.5-10.1 normal Calcium Level ROMAN ( [facility]) chloride level 95 mEq/L 98-107 Below low normal Chloride Level ROMAN ([facility]) carbon dioxide level 17 mEq/L 21-32 Below low normal Carbon Di oxide Level ROMAN ([facility]) ID Date Data Source [id number] 02/17/2020 04:21:00 PM EST ROMAN ([facility]) Name Value Range Interpretation Code Description Data Kaye rce(s) Supporting Document(s) ALT/SGPT 18 U/L 12-78 normal ALT/SGPT [place] ([facility]) AST/SGOT 22 U/L 7-37 normal AST/SGOT ROM[place] ([facility]) alkaline phosphatase 79 U/L 45-117 normal Alkaline Phosph atase ROMAN ([facility]) bilirubin,total 1.0 mg/dL 0.2-1.0 normal Bilirubin,total ATHE ([facility]) total protein 8.2 gm/dL 6.4-8.2 normal Total Protein ROMAN ( [facility]) bilirubin,direct 0.2 mg/dL 0.0-0.2 normal Bilirubin,direct AT [facility] ([facility]) albumin 4.3 gm/dL 3.2-5.2 normal Albumin ROMAN ([facility]) albumin/globulin ratio 1.2-2.2 Below low normal Albumin /globulin Ratio ROMAN ([facility]) ID Date Data Source [id number] 02/17/2020 04:21:00 PM EST ROMAN ([facility]) Name Value Range Interpretation Code Description Data Kaye rce(s) Supporting Document(s) osmolality serum 311 mOsm/kg 275-295 Above high normal Osmolality Serum ROMAN ([facility]) ID Date Data Source [id number] 02/17/2020 04:21:00 PM EST ROMAN ([facility]) Name Value Range Interpretation Code Description Data Kaye rce(s) Supporting Document(s) lipase 68 U/L 73-393 Below low normal Lipase ROMAN ( [facility]) ID Date Data Source [id number] 02/17/2020 04:21:00 PM EST ROMAN ([facility]) Name Value Range Interpretation Code Description Data Kaye rce(s) Supporting Document(s) acetone/ketone > 46.00 <2.81 Above high normal Acetone/ketone [place] ([facility]) ID Date Data Source [id number] 02/17/2020 01:36:00 PM EST [place] ([facility]) Name Value Range Interpretation Code Description Data Kaye rce(s) Supporting Document(s) sars covid-19 amplification negative negative normal [facility] Date Data Source [id number] 02/17/2020 01:25:00 PM EST ROMAN ([facility]) Name Value Range Interpretation Code Description Data Kaye rce(s) Supporting Document(s) Hemoglobin A1c/Hemoglobin.total in Blood 8.5 % normal Hemoglobin a1C ROM[place] ([facility]) estimated average glucose 197 mg/dL 60-110 Above high norm al Estimated Average Glucose [place] ([facility]) ID Date Data Source [id number] 02/17/2020 01:25:00 PM EST ROMAN ([facility]) Name Value Range Interpretation Code Description Data Kaye rce(s) Supporting Document(s) venous pH 7.371 units 7.330-7.430 normal Venous pH [place] ([facility]) venous partial pressure CO2 30.6 mmHg 38.0-50.0 Below low nor mal Venous Partial Pressure CO2 ROMAN ([facility]) venous partial pressure O2 83.8 mmHg 30.0-50.0 Above high nor mal Venous Partial Pressure O2 ROM[place] ([facility]) venous base excess -2.0-2.0 Below low normal Venous Base Excess [place] ([facility]) venous total CO2 18.3 mEq/L 24.0-28.0 Below low normal Venous Total CO2 [place] ([facility]) venous HCO3 17.3 mEq/L 23.0-27.0 Below low normal Venous HCO3 [place] ([facility]) venous O2 saturation 96.0 % 60.0-80.0 Above high normal Venous O 2 Saturation [place] ([facility]) venous standard HCO3 18.9 mEq/L normal Venous Standard HCO3 [place] ([facility]) ID Date Data Source [id number] 02/17/2020 01:25:00 PM EST [place] ([facility]) Name Value Range Interpretation Code Description Data Kaye rce(s) Supporting Document(s) red blood count 3.98 10 4.00-5.40 Below low normal Red Blood Coun t [place] ([facility]) hemoglobin 11.0 g/dL 12.0-15.5 Below low normal Hemoglobin [place] ( [facility]) white blood count 9.6 10 4.0-10.0 normal White Blood Count [place] ([facility]) mean corpuscular volume 84.9 fL 80.0-96.0 normal Mean Corpusc ular Volume ROMAN ([facility]) hematocrit 33.8 % 36.0-47.0 Below low normal Hematocrit [place] ( [facility]) red cell distribution width 15.0 % 11.5-14.5 Above high no rmal Red Cell Distribution Width ROMAN ([facility]) mean corpuscular hemoglobin 27.6 pg 27.0-33.0 normal Mean Corpuscular Hemoglobin [place] ([facility]) mean corpuscular HGB conc 32.5 g/dL 32.0-36.5 normal Mean Corpu scular HGB Conc ROMAN ([facility]) neutrophils % 78.2 % 36.0-66.0 Above high normal Neutrophils % A THENA ([facility]) lymph % 14.8 % 24.0-44.0 Below low normal Lymph % [place] ( [facility]) platelet count, automated 333 10 150-450 normal Platelet C ount, Automated [place] ([facility]) eos % 0.1 % 0.0-3.0 normal Eos % [place] ([facility]) baso % 0.5 % 0.0-1.0 normal Baso % [place] ([facility]) mono % 6.1 % 0.0-5.0 Above high normal [place] % ROMAN ([facility]) immature granulocyte % 0.3 % 0-3.0 normal Immature Gran ulocyte % ROMAN ([facility]) neutrophils # 7.5 10 1.5-8.5 normal Neutrophils # ROMAN ( [facility]) nucleated red blood cell % 0.0 % 0-0 normal Nucleated Red Blood Cell % ROM[place] ([facility]) eos # 0.0 10 0.0-0.5 normal Eos # [place] ([facility]) mono # 0.6 10 0.0-0.8 normal [place] # ROMAN ([facility]) lymph # 1.4 10 1.5-5.0 Below low normal Lymph # ROMAN ( [facility]) baso # 0.1 10 0.0-0.2 normal Baso # [place] ([facility]) ID Date Data Source [id number] 02/17/2020 01:25:00 PM EST ROMAN ([facility]) Name Value Range Interpretation Code Description Data Kaye rce(s) Supporting Document(s) venous pH 7.371 units 7.330-7.430 normal Venous pH [place] ([facility]) venous partial pressure CO2 30.6 mmHg 38.0-50.0 Below low nor mal Venous Partial Pressure CO2 [place] ([facility]) venous partial pressure O2 83.8 mmHg 30.0-50.0 Above high nor mal Venous Partial Pressure O2 [place] ([facility]) venous total CO2 18.3 mEq/L 24.0-28.0 Below low normal Venous Total CO2 [place] ([facility]) venous base excess -2.0-2.0 Below low normal Venous Base Excess [place] ([facility]) venous standard HCO3 18.9 mEq/L normal Venous Standard HCO3 [place] ([facility]) venous HCO3 17.3 mEq/L 23.0-27.0 Below low normal Venous HCO3 [place] ([facility]) venous O2 saturation 96.0 % 60.0-80.0 Above high normal Venous O 2 Saturation [place] ([facility]) ID Date Data Source [id number] 02/17/2020 01:22:00 PM EST ROMAN ([facility]) Name Value Range Interpretation Code Description Data Kaye rce(s) Supporting Document(s) istat HCT 37.0 % 38.0-51.0 Below low normal Istat HCT ROMAN ( [facility]) istat glucose 359 mg/dL 70-105 Above high normal Istat Glucose A THENA ([facility]) istat sodium 127 mEq/L 136-145 Below low normal Istat Sodium ATHE NA ([facility]) istat Ca++ 3.8 mg/dL 4.5-5.3 Below low normal Istat Ca++ [place]AN ( [facility]) istat potassium 7.8 mEq/L 3.5-5.1 Above high normal Istat Potassi um ROMAN ([facility]) istat CO2 21.0 mm/L 23.0-27.0 Below low normal Istat CO2 ROMAN ( [facility]) istat chloride 96 mEq/L 98-109 Below low normal Istat Chloride ROMAN ([facility]) istat creatinine 1.6 mg/dL 0.6-1.3 Above high normal Istat Creati nine ROMAN ([facility]) istat BUN 70 mg/dL 8-26 Above high normal Istat BUN [place] ([facility]) ID Date Data Source [id number] 11/30/2019 04:55:00 PM EDT [facility] Name Value Range Interpretation Code Description Data Kaye rce(s) Supporting Document(s) BG FASTING 304 mg/dL 70-100 H [facility] ID Date Data Source [id number] 11/30/2019 04:55:00 PM EDT [facility] Name Value Range Interpretation Code Description Data Kaye rce(s) Supporting Document(s) HCT 31.4 % 36.0-47.0 L [facility] HGB 10.6 g/dL 12.0-15.5 L [facility] MCH 33.8 G/DL pg 32.0-36.5 N [facility] MCHC 28.6 PG % 27.0-33.0 N [facility] PLATELETS 319 10 10*3/mm3 150-450 N [facility] RBC 3.71 10 10*6/mm3 4.00-5.40 L [facility] RDW 14.7 % 11.5-14.5 H [facility] WBC TOTAL 10.0 4.0-10.0 N [facility] ID Date Data Source [id number] 10/23/2019 11:54:00 AM EDT [facility] Name Value Range Interpretation Code Description Data Kaye rce(s) Supporting Document(s) BG FASTING 97 mg/dL 70-100 N [facility] ID Date Data Source [id number] 10/23/2019 06:41:00 AM EDT [facility] Name Value Range Interpretation Code Description Data Kaye rce(s) Supporting Document(s) BG FASTING 296 mg/dL 70-100 H [facility] ID Date Data Source [id number] 10/23/2019 06:41:00 AM EDT [facility] Name Value Range Interpretation Code Description Data Kaye rce(s) Supporting Document(s) HCT 27.7 % 36.0-47.0 L [facility] HGB 9.1 g/dL 12.0-15.5 L [facility] MCH 32.9 G/DL pg 32.0-36.5 [facility] MCHC 28.0 PG % 27.0-33.0 N [facility] PLATELETS 279 10 10*3/mm3 150-450 N [facility] RBC 3.25 10 10*6/mm3 4.00-5.40 L [facility] RDW 16.7 % 11.5-14.5 H [facility] WBC TOTAL 8.3 4.0-10.0 N [facility] ID Date Data Source [id number] 10/22/2019 05:25:00 AM EDT [facility] Name Value Range Interpretation Code Description Data Kaye rce(s) Supporting Document(s) HCT 26.0 % 36.0-47.0 L [facility] HGB 8.7 g/dL 12.0-15.5 L [facility] MCH 33.5 G/DL pg 32.0-36.5 N [facility] MCHC 28.2 PG % 27.0-33.0 N [facility] PLATELETS 234 10 10*3/mm3 150-450 N [facility] RBC 3.09 10 10*6/mm3 4.00-5.40 L [facility] RDW 16.2 % 11.5-14.5 H [facility] WBC TOTAL 9.0 4.0-10.0 N [facility] ID Date Data Source [id number] 10/22/2019 05:25:00 AM EDT [facility] Name Value Range Interpretation Code Description Data Kaye rce(s) Supporting Document(s) BG FASTING 257 mg/dL 70-100 H [facility] ID Date Data Source [id number] 10/21/2019 03:16:00 PM EDT [facility] Name Value Range Interpretation Code Description Data Kaye rce(s) Supporting Document(s) HCT 29.0 % 36.0-47.0 L [facility] HGB 9.6 g/dL 12.0-15.5 L [facility] MCH 33.1 G/DL pg 32.0-36.5 N [facility] MCHC 28.6 PG % 27.0-33.0 N [facility] PLATELETS 162 10 10*3/mm3 150-450 N [facility] RBC 3.36 10 10*6/mm3 4.00-5.40 L [facility] RDW 16.4 % 11.5-14.5 H [facility] WBC TOTAL 8.2 4.0-10.0 N [facility] Procedure Vital Signs ID Date Data Source [id number] Name Value Range Interpretation Code Description Data Source(s) Body weight 2680 [oz_av] 2680 [oz_av] [place] ([facility]) Systolic blood pressure 114 mm[Hg] 114 mm[Hg] A THENA ([facility]) Body mass index (BMI) [Ratio] 26.2 kg/m2 26.2 k g/m2 [place] ([facility]) Body height 67 [in_i] 67 [in_i] ROMAN ([facility]) Diastolic blood pressure 77 mm[Hg] 77 mm[Hg] [place] ([facility]) Patient Treatment Plan of Care Planned Activity Planned Date Details Description Data Source (s) Prochlorperazine 25 MG Rectal Suppository ROMAN ([facility]) Penicillin V Potassium 500 MG Oral Tablet ROM[place] ([facility]) Oxycodone Hydrochloride 5 MG Oral Tablet ROM[place] ([facility]) Ondansetron 4 MG Oral Tablet ROM[place] ([facility]) Omeprazole 20 MG Delayed Release Oral Capsule ROMAN ([facility]) Metoclopramide 5 MG Oral Tablet ROMAN ([facility]) Metoclopramide 10 MG Oral Tablet ROMAN ([facility])
[2020-05-30] MEDS ORDERED: NS 1,000 ML IV ONE ×2 (10:45→12:40)
[2020-05-30] MEDS ORDERED: HALOPERIDOL 5MG/ML VIAL (J1630 PER 1) IV ONE (10:45)
--- OUTSIDE RECORDS SUMMARY | 2020-05-30 10:55 | CCD ---
Author Author [facility] Organization [facility] Address Unknown Phone Unavailable Care Team Providers Care Supervisor Customer Complaint Service Name Role Phone Scordo, M Katie PA [...] Unavailable Unavailable Tamia Lopez MD Unavailable Unavailable Tamai Lopez MD Unavailable Unavailable Tamia Lopez MD [...] Unavailable Lopez, Tamia Rosario MD Unavailable Unavailable LoepzTamia MD Unavailable Unavailable Lopez, Tamia Rosario MD [...] is protected by Article 27-F of the [facility] Public Health law. If you continue you may have access to information: Regarding HIV / AIDS; Provided by facilities licensed or operated by the [facility] Office of Mental Health; or Provided by the [facility] Office for People With Developmental Disabilities. If such information is present, then the following [facility] mandated warning applies: This information [...] law may result in a fine or penitentiary sentence or both. A general authorization for the release of medical or other information is NOT sufficient authorization for further disc losure. Encounters Encounter Providers Location Date Indications Data Source(s ) Katie Yoo PA-C: [address] [place] [phone], Ph. Attender: Katie [facility] Medical 02/23/2020 12:00:00 AM EST [facility] ([facility]) Outpatient Attender: Abraham Lopez MD FP 02/22/2020 02:58:01 PM EST [facility] Outpatient Attender: Abraham Lopez MD FP 12/06/2019 09:43:02 AM EDT [facility] Outpatient Attender: Abraham Lopez MD FP 12/06/2019 09:43:00 AM EDT [facility] Outpatient Attender: Abraham Lopez MD FP 12/06/2019 09:42:01 AM EDT [facility] Outpatient Attender: Abraham Lopez MD FP 12/06/2019 09:42:00 AM EDT [facility] Outpatient Attender: Abraham Lopez MD FP 11/01/2019 01:52:00 PM EDT [facility] Outpatient Attender: Abraham Lopez MD FP 10/24/2019 03:50:02 PM EDT [facility] Outpatient Attender: Abraham Lopez MD FP 10/24/2019 08:46:04 AM EDT [facility] Outpatient Attender: Abraham Lopez MD FP 10/24/2019 08:46:02 AM EDT [facility] Outpatient Attender: Abraham Lopez MD FP 10/24/2019 08:41:04 AM EDT [facility] Outpatient Attender: Abraham Lopez MD FP 10/24/2019 08:41:01 AM EDT [facility] Outpatient Attender: Abraham Lopez MD FP 10/24/2019 08:40:04 AM EDT [facility] Outpatient Attender: Abraham Lopez MD FP 10/24/2019 08:40:04 AM EDT [facility] Outpatient Attender: Abraham Lopez MD FP 10/24/2019 08:34:03 AM EDT [facility] Outpatient Attender: Abraham Lopez MD FP 10/24/2019 08:34:02 AM EDT [facility] Outpatient Attender: Abraham Lopez MD FP 10/21/2019 04:57:00 PM EDT [facility] Outpatient Attender: Abraham Lopez MD FP 10/21/2019 04:57:00 PM EDT [facility] Outpatient Attender: Abraham Lopez MD FP 10/20/2019 01:10:00 PM EDT [facility] Outpatient Attender: Abraham Lopez MD FP 10/18/2019 09:07:01 AM EDT [facility] Outpatient Referrer: Jennifer Lewis MD 09/15/2019 05:43:00 AM EDT [facility] Outpatient Attender: Abraham Lopez MD FP 09/13/2019 07:55:13 PM EDT [facility] Outpatient Attender: Abraham CRUZ 09/09/2019 02:28:00 PM EDT [facility] Outpatient Attender: Abraham CRUZ 09/05/2019 03:25:59 PM EDT [facility] Outpatient Attender: Abraham Lopez MD FP 09/02/2019 10:44:00 AM EDT [facility] Outpatient Referrer: Jennifer Lewis MD 07/20/2019 05:01:00 AM EDT [facility] Outpatient Referrer: Jennifer Lewis MD 07/19/2019 08:40:00 AM EDT [facility] Outpatient Attender: Abraham Lopez MD FP 07/13/2019 11:27:04 AM EDT [facility] Outpatient Referrer: Jennifer Lewis MD 06/28/2019 06:29:00 AM EDT [facility] Outpatient Attender: Abraham Lopez MD FP 06/27/2019 10:49:00 AM EDT [facility] Outpatient Attender: Abraham Lopez MD FP 06/24/2019 09:00:02 AM EDT [facility] Outpatient Referrer: Jennifer Lewis MD 06/06/2019 03:46:00 PM EST [facility] Outpatient Attender: Abraham Lopez MD FP 06/02/2019 12:31:00 PM EST [facility] Outpatient Attender: Abraham Lopez MD FP 06/01/2019 10:49:01 AM EST [facility] Medications Medication Brand Name Start [...] V potassium 500 MG Oral Tablet [facility] ([facility]) Ondansetron 4 MG Oral Tablet ondansetron HCl 4 mg tabl et ondansetron HCl 4 mg tablet completed ondansetron 4 M G Oral Tablet [facility] ([facility]) Metoclopramide 10 MG Oral Tablet metoclopramide 10 mg tablet metoclopramide 10 mg tablet completed metocloprami de 10 MG Oral Tablet [facility] ([facility]) Oxycodone Hydrochloride 5 MG Oral Tablet oxycodone 5 m g tablet oxycodone 5 mg tablet completed oxycodone hydro chloride 5 MG Oral Tablet [facility] ([facility]) Omeprazole 20 MG Delayed Release Oral Ca psule omeprazole 20 mg capsule,delayed release TAKE ONE CAPSULE BY MOUTH TWICE A DAY omeprazole 20 mg capsule,delayed release TAKE ONE CAPSULE BY MOUTH TWICE A DAY completed omeprazole 20 MG Delayed Release Oral Capsule [facility] ([facility]) Prochlorperazine 25 MG Rectal Suppositor y prochlorperazine 25 mg rectal suppository INSERT ONE SUPPOSITORY RECTALLY EVERY 8 HOURS NEEDED FOR NAUSEA prochlorperazine 25 mg rectal suppository INSERT ONE SUPPOSITORY RECTALLY EVERY 8 HOURS NEEDED FOR NAUSEA completed prochlorperazine 25 MG Rectal Suppository [facility] ([facility]) Metoclopramide 5 MG Oral Tablet metoclop ramide 5 mg tablet TAKE ONE TABLET BY MOUTH EVERY DAY BEFORE MEALS AND AT BEDTIME metoclopramide 5 mg tablet TAKE ONE TABLET BY MOUTH EVERY DAY BEFORE MEALS AND AT BEDTIME completed metoclopramide 5 MG Oral Tablet [facility] ([facility]) Insurance Providers Payer name Policy type / Coverage type Policy ID Covered alliance party ID Covered alliance party's relationship to schultz Policy Schultz Plan Information [facility] [id number] SP [id number] [facility](MCA[facility]) O [id number] S [id number] Managed [facility] - [facility] P [id number] S [id number] Medicaid S [id number] S [id number] Man[facility] - [facility] P [id number] S [id number] MEDICAID [id number] SP [id number] [facility]aged [facility] P [id number] S [id number] Medicaid S [id number] S [id number] Managed [facility] - [facility] P UNAVAILABLE S UNAVAILABLE Medicaid S [id number] S [id number] [facility] PLAN [facility] [id number] SP [id number] SELF PAY ONLY SP 1994 SELF PAY UNAVAILABLE SP UNAVAILA BLE MEDICAID GME W [id number] S [id number] [facility] COMM PLAN [facility] W [id number] S [id number] MEDICAID W UNAVAILABLE S UNAVAILA BLE SELF PAY P S P UNAVAILABLE UNAVAILA BLE [employer] COMMUNITY PLAN [id number] SP 00 BLUE CROSS BELTRAN PLAN [id number] [facility] BLUE [id number] Results ID Date Data Source [id number] 05/19/2020 11:28:00 AM EST [facility] Name Value Range Interpretation Code Description Data Kaye rce(s) Supporting Document(s) SARS-CoV-2 (COVID 19) NEGATIVE - SARS-CoV-2 (COVID19) [facility] This lab was ordered by [facility] a nd reported by [facility]. ID Date Data Source [id number] 05/19/2020 11:06:00 AM EST [facility] Name Value Range Interpretation Code Description Data Kaye rce(s) Supporting Document(s) SARS COVID ANTIGEN NEGATIVE [facility] This lab was ordered by [facility] a nd reported by [facility]. ID Date Data Source [id number] 03/17/2020 08:43:00 PM EST [facility] Name Value Range Interpretation Code Description Data Kaye rce(s) Supporting Document(s) SARS coronavirus 2 RNA [Presence] in Res piratory specimen by SULY with probe detection [facility] This lab was ordered by [facility] a nd reported by [facility]. ID Date Data Source [id number] 02/19/2020 11:50:00 AM EST [facility] ([facility]) Name Value Range Interpretation Code Description Data Kaye rce(s) Supporting Document(s) bedside glucose 180 mg/dL 70-105 Above high normal Bedside Gluco se [facility] ([facility]) ID Date Data Source [id number] 02/19/2020 04:20:00 AM EST [facility] ([facility]) Name Value Range Interpretation Code Description Data Kaye rce(s) Supporting Document(s) glucose, fasting 139 mg/dL 70-100 Above high normal Glucose, Fas ting [place] ([facility]) creatinine for GFR 1.14 mg/dL 0.55-1.30 normal Creatinine for GF R [facility] ([facility]) blood urea nitrogen 21 mg/dL 7-18 Above high normal Blood Ure a Nitrogen [facility] ([facility]) glomerular filtration rate > 60.0 >58 normal Glomerula r Filtration Rate [facility] ([facility]) sodium level 138 mEq/L 136-145 normal Sodium Level [facility] ([facility]) potassium serum 3.6 mEq/L 3.5-5.1 normal Potassium Serum [facility] ([facility]) carbon dioxide level 25 mEq/L 21-32 normal Carbon Dioxide Level [facility] ([facility]) chloride level 109 mEq/L 98-107 Above high normal Chloride Level [facility] ([facility]) anion gap 4 mEq/L 8-16 Below low normal Anion Gap [place] ( [facility]) calcium level 8.4 mg/dL 8.5-10.1 Below low normal Calcium Level AT [facility]) ID Date Data Source [id number] 02/19/2020 04:20:00 AM EST [place] ([facility]) Name Value Range Interpretation Code Description Data Kaye rce(s) Supporting Document(s) white blood count 5.8 10 4.0-10.0 normal White Blood Count [place] ([facility]) red blood count 3.11 10 4.00-5.40 Below low normal Red Blood Coun t [facility] ([facility]) hemoglobin 8.5 g/dL 12.0-15.5 Below low normal Hemoglobin [facility] ( [facility]) hematocrit 26.6 % 36.0-47.0 Below low normal Hematocrit [facility] ( [facility]) mean corpuscular volume 85.5 fL 80.0-96.0 normal Mean Corpusc ular Volume [place] ([facility]) mean corpuscular hemoglobin 27.3 pg 27.0-33.0 normal Mean Corpuscular Hemoglobin [place] ([facility]) red cell distribution width 14.7 % 11.5-14.5 Above high no rmal Red Cell Distribution Width [facility] ([facility]) mean corpuscular HGB conc 32.0 g/dL 32.0-36.5 normal Mean Corpu scular HGB Conc [facility] ([facility]) platelet count, automated 256 10 150-450 normal Platelet C ount, Automated [facility] ([facility]) nucleated red blood cell % 0.0 % 0-0 normal Nucleated Red Blood Cell % [facility] ([facility]) ID Date Data Source [id number] 02/18/2020 08:43:00 PM EST [facility] ([facility]) Name Value Range Interpretation Code Description Data Kaye rce(s) Supporting Document(s) bedside glucose 67 mg/dL 70-105 Below low normal Bedside Glucos e [facility] ([facility]) ID Date Data Source [id number] 02/18/2020 08:09:00 PM EST [facility] ([facility]) Name Value Range Interpretation Code Description Data Kaye rce(s) Supporting Document(s) bedside glucose 40 mg/dL 70-105 Below low normal Bedside Glucos e [facility] ([facility]) ID Date Data Source [id number] 02/18/2020 05:03:00 PM EST [facility] ([facility]) Name Value Range Interpretation Code Description Data Kaye rce(s) Supporting Document(s) bedside glucose 112 mg/dL 70-105 Above high normal Bedside Gluco se [facility] ([facility]) ID Date Data Source [id number] 02/18/2020 11:43:00 AM EST [facility] ([facility]) Name Value Range Interpretation Code Description Data Kaye rce(s) Supporting Document(s) bedside glucose 199 mg/dL 70-105 Above high normal Bedside Gluco se [facility] ([facility]) ID Date Data Source [id number] 02/18/2020 10:22:00 AM EST [facility] ([facility]) Name Value Range Interpretation Code Description Data Kaye rce(s) Supporting Document(s) bedside glucose 182 mg/dL 70-105 Above high normal Bedside Gluco se [facility] ([facility]) ID Date Data Source [id number] 02/18/2020 10:20:00 AM EST [facility] ([facility]) Name Value Range Interpretation Code Description Data Kaye rce(s) Supporting Document(s) phosphorus level 1.4 mg/dL 2.5-4.9 Below low normal Phosphorus Le analia [facility] ([facility]) ID Date Data Source [id number] 02/18/2020 10:20:00 AM EST [facility] ([facility]) Name Value Range Interpretation Code Description Data Kaye rce(s) Supporting Document(s) blood urea nitrogen 32 mg/dL 7-18 Above high normal Blood Ure a Nitrogen [facility] ([facility]) glucose, fasting 199 mg/dL 70-100 Above high normal Glucose, Fas ting [facility] ([facility]) creatinine for GFR 1.38 mg/dL 0.55-1.30 Above high normal Creatinine for GFR [place] ([facility]) glomerular filtration rate >58 Below low normal Beata merular Filtration Rate [facility] ([facility]) sodium level 139 mEq/L 136-145 normal Sodium Level [facility] ([facility]) potassium serum 3.8 mEq/L 3.5-5.1 normal Potassium Serum [facility] ([facility]) carbon dioxide level 25 mEq/L 21-32 normal Carbon Dioxide Level [facility] ([facility]) chloride level 109 mEq/L 98-107 Above high normal Chloride Level [facility] ([facility]) anion gap 5 mEq/L 8-16 Below low normal Anion Gap [facility] ( [facility]) calcium level 8.2 mg/dL 8.5-10.1 Below low normal Calcium Level AT [facility]) ID Date Data Source [id number] 02/18/2020 09:01:00 AM EST [facility] ([facility]) Name Value Range Interpretation Code Description Data Kaye rce(s) Supporting Document(s) bedside glucose 112 mg/dL 70-105 Above high normal Bedside Gluco se [facility] ([facility]) ID Date Data Source [id number] 02/18/2020 08:03:00 AM EST [facility] ([facility]) Name Value Range Interpretation Code Description Data Kaye rce(s) Supporting Document(s) bedside glucose 123 mg/dL 70-105 Above high normal Bedside Gluco se [facility] ([facility]) ID Date Data Source [id number] 02/18/2020 07:03:00 AM EST [facility] ([facility]) Name Value Range Interpretation Code Description Data Kaye rce(s) Supporting Document(s) bedside glucose 156 mg/dL 70-105 Above high normal Bedside Gluco se [facility] ([facility]) ID Date Data Source [id number] 02/18/2020 06:32:00 AM EST [facility] ([facility]) Name Value Range Interpretation Code Description Data Kaye rce(s) Supporting Document(s) phosphorus level 2.0 mg/dL 2.5-4.9 Below low normal Phosphorus Le analia [facility] ([facility]) ID Date Data Source [id number] 02/18/2020 06:32:00 AM EST [facility] ([facility]) Name Value Range Interpretation Code Description Data Kaye rce(s) Supporting Document(s) glucose, fasting 137 mg/dL 70-100 Above high normal Glucose, Fas ting [facility] ([facility]) blood urea nitrogen 36 mg/dL 7-18 Above high normal Blood Ure a Nitrogen [facility] ([facility]) creatinine for GFR 1.35 mg/dL 0.55-1.30 Above high normal Creatinine for GFR [facility] ([facility]) sodium level 140 mEq/L 136-145 normal Sodium Level [facility] ([facility]) glomerular filtration rate >58 Below low normal Beata merular Filtration Rate [place] ([facility]) potassium serum 4.2 mEq/L 3.5-5.1 normal Potassium Serum [facility] ([facility]) chloride level 109 mEq/L 98-107 Above high normal Chloride Level [facility] ([facility]) anion gap 8 mEq/L 8-16 normal Anion Gap [facility] ([facility]) carbon dioxide level 23 mEq/L 21-32 normal Carbon Dioxide Level [place] ([facility]) calcium level 8.4 mg/dL 8.5-10.1 Below low normal Calcium Level AT [facility] ([facility]) ID Date Data Source [id number] 02/18/2020 06:32:00 AM EST [place] ([facility]) Name Value Range Interpretation Code Description Data Kaye rce(s) Supporting Document(s) red blood count 3.39 10 4.00-5.40 Below low normal Red Blood Coun t [place] ([facility]) white blood count 6.9 10 4.0-10.0 normal White Blood Count [place] ([facility]) hemoglobin 9.6 g/dL 12.0-15.5 Below low normal Hemoglobin [facility] ( [facility]) hematocrit 28.7 % 36.0-47.0 Below low normal Hematocrit [place] ( [facility]) mean corpuscular hemoglobin 28.3 pg 27.0-33.0 normal Mean Corpuscular Hemoglobin [place] ([facility]) mean corpuscular volume 84.7 fL 80.0-96.0 normal Mean Corpusc ular Volume [facility] ([facility]) red cell distribution width 14.8 % 11.5-14.5 Above high no rmal Red Cell Distribution Width [facility] ([facility]) mean corpuscular HGB conc 33.4 g/dL 32.0-36.5 normal Mean Corpu scular HGB Conc [facility] ([facility]) platelet count, automated 300 10 150-450 normal Platelet C ount, Automated [facility] ([facility]) nucleated red blood cell % 0.0 % 0-0 normal Nucleated Red Blood Cell % [facility] ([facility]) ID Date Data Source [id number] 02/18/2020 06:19:00 AM EST [facility] ([facility]) Name Value Range Interpretation Code Description Data Kaye rce(s) Supporting Document(s) bedside glucose 122 mg/dL 70-105 Above high normal Bedside Gluco se [facility] ([facility]) ID Date Data Source [id number] 02/18/2020 05:24:00 AM EST [facility] ([facility]) Name Value Range Interpretation Code Description Data Kaye rce(s) Supporting Document(s) bedside glucose 82 mg/dL 70-105 normal Bedside Glucose [facility] ([facility]) ID Date Data Source [id number] 02/18/2020 04:20:00 AM EST [facility] ([facility]) Name Value Range Interpretation Code Description Data Kaye rce(s) Supporting Document(s) bedside glucose 101 mg/dL 70-105 normal Bedside Glucose [facility] ([facility]) ID Date Data Source [id number] 02/18/2020 03:13:00 AM EST [facility] ([facility]) Name Value Range Interpretation Code Description Data Kaye rce(s) Supporting Document(s) bedside glucose 133 mg/dL 70-105 Above high normal Bedside Gluco se [facility] ([facility]) ID Date Data Source [id number] 02/18/2020 02:25:00 AM EST [place] ([facility]) Name Value Range Interpretation Code Description Data Kaye rce(s) Supporting Document(s) phosphorus level 2.1 mg/dL 2.5-4.9 Below low normal Phosphorus Le analia [facility] ([facility]) ID Date Data Source [id number] 02/18/2020 02:25:00 AM EST [facility] ([facility]) Name Value Range Interpretation Code Description Data Kaye rce(s) Supporting Document(s) glucose, fasting 135 mg/dL 70-100 Above high normal Glucose, Fas ting [facility] ([facility]) creatinine for GFR 1.64 mg/dL 0.55-1.30 Above high normal Creatinine for GFR [place] ([facility]) blood urea nitrogen 41 mg/dL 7-18 Above high normal Blood Ure a Nitrogen [facility] ([facility]) glomerular filtration rate >58 Below low normal Beata merular Filtration Rate [facility] ([facility]) sodium level 139 mEq/L 136-145 normal Sodium Level [facility] ([facility]) potassium serum 3.7 mEq/L 3.5-5.1 normal Potassium Serum [facility] ([facility]) chloride level 107 mEq/L 98-107 normal Chloride Level [place] ([facility]) carbon dioxide level 25 mEq/L 21-32 normal Carbon Dioxide Level [place] ([facility]) calcium level 8.2 mg/dL 8.5-10.1 Below low normal Calcium Level AT [facility] ([facility]) anion gap 7 mEq/L 8-16 Below low normal Anion Gap [place] ( [facility]) ID Date Data Source [id number] 02/18/2020 02:23:00 AM EST [facility]) Name Value Range Interpretation Code Description Data Kaye rce(s) Supporting Document(s) bedside glucose 135 mg/dL 70-105 Above high normal Bedside Gluco se [facility]) ID Date Data Source [id number] 02/18/2020 01:09:00 AM EST [facility]) Name Value Range Interpretation Code Description Data Kaye rce(s) Supporting Document(s) bedside glucose 139 mg/dL 70-105 Above high normal Bedside Gluco se [facility]) ID Date Data Source [id number] 02/18/2020 12:08:00 AM EST [facility]) Name Value Range Interpretation Code Description Data Kaye rce(s) Supporting Document(s) bedside glucose 162 mg/dL 70-105 Above high normal Bedside Gluco se [facility] ([facility]) ID Date Data Source [id number] 02/17/2020 11:37:00 PM EST [facility] ([facility]) Name Value Range Interpretation Code Description Data Kaye rce(s) Supporting Document(s) bedside glucose 103 mg/dL 70-105 normal Bedside Glucose [facility] ([facility]) ID Date Data Source [id number] 02/17/2020 10:58:00 PM EST [facility] ([facility]) Name Value Range Interpretation Code Description Data Kaye rce(s) Supporting Document(s) bedside glucose 79 mg/dL 70-105 normal Bedside Glucose [facility] ([facility]) ID Date Data Source [id number] 02/17/2020 10:40:00 PM EST [facility] ([facility]) Name Value Range Interpretation Code Description Data Kaye rce(s) Supporting Document(s) bedside glucose 77 mg/dL 70-105 normal Bedside Glucose [facility] ([facility]) ID Date Data Source [id number] 02/17/2020 09:17:00 PM EST [facility] ([facility]) Name Value Range Interpretation Code Description Data Kaye rce(s) Supporting Document(s) bedside glucose 191 mg/dL 70-105 Above high normal Bedside Gluco se [facility] ([facility]) ID Date Data Source [id number] 02/17/2020 08:19:00 PM EST [facility] ([facility]) Name Value Range Interpretation Code Description Data Kaye rce(s) Supporting Document(s) phosphorus level 4.3 mg/dL 2.5-4.9 normal Phosphorus Level AT [facility] ([facility]) ID Date Data Source [id number] 02/17/2020 08:19:00 PM EST [facility] ([facility]) Name Value Range Interpretation Code Description Data Kaye rce(s) Supporting Document(s) blood urea nitrogen 48 mg/dL 7-18 Above high normal Blood Ure a Nitrogen [facility] ([facility]) glomerular filtration rate >58 Below low normal Beata merular Filtration Rate [facility] ([facility]) glucose, fasting 314 mg/dL 70-100 Above high normal Glucose, Fas ting [facility] ([facility]) creatinine for GFR 1.81 mg/dL 0.55-1.30 Above high normal Creatinine for GFR [facility] ([facility]) sodium level 134 mEq/L 136-145 Below low normal Sodium Level [facility] ([facility]) potassium serum 3.5 mEq/L 3.5-5.1 normal Potassium Serum [facility] ([facility]) carbon dioxide level 19 mEq/L 21-32 Below low normal Carbon Di oxide Level [facility] ([facility]) chloride level 98 mEq/L 98-107 normal Chloride Level [facility] ([facility]) anion gap 17 mEq/L 8-16 Above high normal Anion Gap [facility] ([facility]) calcium level 8.9 mg/dL 8.5-10.1 normal Calcium Level [place] ( [facility]) ID Date Data Source [id number] 02/17/2020 07:12:00 PM EST [facility] ([facility]) Name Value Range Interpretation Code Description Data Kaye rce(s) Supporting Document(s) bedside glucose 327 mg/dL 70-105 Above high normal Bedside Gluco se [facility] ([facility]) ID Date Data Source [id number] 02/17/2020 06:57:00 PM EST [facility] ([facility]) Name Value Range Interpretation Code Description Data Kaye rce(s) Supporting Document(s) phosphorus level 4.4 mg/dL 2.5-4.9 normal Phosphorus Level AT [facility]) ID Date Data Source [id number] 02/17/2020 06:57:00 PM EST [facility] ([facility]) Name Value Range Interpretation Code Description Data Kaye rce(s) Supporting Document(s) blood urea nitrogen 50 mg/dL 7-18 Above high normal Blood Ure a Nitrogen [facility] ([facility]) creatinine for GFR 1.77 mg/dL 0.55-1.30 Above high normal Creatinine for GFR [facility] ([facility]) glomerular filtration rate >58 Below low normal Beata merular Filtration Rate [facility] ([facility]) glucose, fasting 329 mg/dL 70-100 Above high normal Glucose, Fas ting [facility] ([facility]) sodium level 132 mEq/L 136-145 Below low normal Sodium Level ATHE NA ([facility]) chloride level 96 mEq/L 98-107 Below low normal Chloride Level [place] ([facility]) carbon dioxide level 18 mEq/L 21-32 Below low normal Carbon Di oxide Level [place] ([facility]) potassium serum 3.9 mEq/L 3.5-5.1 normal Potassium Serum ATHE NA ([facility]) anion gap 18 mEq/L 8-16 Above high normal Anion Gap [facility] ([facility]) calcium level 8.9 mg/dL 8.5-10.1 normal Calcium Level [place] ( [facility]) ID Date Data Source [id number] 02/17/2020 04:21:00 PM EST [facility] ([facility]) Name Value Range Interpretation Code Description Data Kaye rce(s) Supporting Document(s) blood urea nitrogen 49 mg/dL 7-18 Above high normal Blood Ure a Nitrogen [facility] ([facility]) glucose, fasting 337 mg/dL 70-100 Above high normal Glucose, Fas ting [place] ([facility]) sodium level 132 mEq/L 136-145 Below low normal Sodium Level [facility] NA ([facility]) potassium serum 4.1 mEq/L 3.5-5.1 normal Potassium Serum [facility] NA ([facility]) creatinine for GFR 1.73 mg/dL 0.55-1.30 Above high normal Creatinine for GFR [place] ([facility]) glomerular filtration rate >58 Below low normal Beata merular Filtration Rate [facility] ([facility]) anion gap 20 mEq/L 8-16 Above high normal Anion Gap [facility] ([facility]) calcium level 9.5 mg/dL 8.5-10.1 normal Calcium Level [facility] ( [facility]) chloride level 95 mEq/L 98-107 Below low normal Chloride Level [facility] ([facility]) carbon dioxide level 17 mEq/L 21-32 Below low normal Carbon Di oxide Level [facility] ([facility]) ID Date Data Source [id number] 02/17/2020 04:21:00 PM EST [place] ([facility]) Name Value Range Interpretation Code Description Data Kaye rce(s) Supporting Document(s) ALT/SGPT 18 U/L 12-78 normal ALT/SGPT [facility] ([facility]) AST/SGOT 22 U/L 7-37 normal AST/SGOT [facility] ([facility]) alkaline phosphatase 79 U/L 45-117 normal Alkaline Phosph atase [facility] ([facility]) bilirubin,total 1.0 mg/dL 0.2-1.0 normal Bilirubin,total [facility] ([facility]) total protein 8.2 gm/dL 6.4-8.2 normal Total Protein [place] ( [facility]) bilirubin,direct 0.2 mg/dL 0.0-0.2 normal Bilirubin,direct AT [facility] ([facility]) albumin 4.3 gm/dL 3.2-5.2 normal Albumin [facility] ([facility]) albumin/globulin ratio 1.2-2.2 Below low normal Albumin /globulin Ratio [facility] ([facility]) ID Date Data Source [id number] 02/17/2020 04:21:00 PM EST [place] ([facility]) Name Value Range Interpretation Code Description Data Kaye rce(s) Supporting Document(s) osmolality serum 311 mOsm/kg 275-295 Above high normal Osmolality Serum [facility] ([facility]) ID Date Data Source [id number] 02/17/2020 04:21:00 PM EST [facility] ([facility]) Name Value Range Interpretation Code Description Data Kaye rce(s) Supporting Document(s) lipase 68 U/L 73-393 Below low normal Lipase [facility] ( [facility]) ID Date Data Source [id number] 02/17/2020 04:21:00 PM EST [place] ([facility]) Name Value Range Interpretation Code Description Data Kaye rce(s) Supporting Document(s) acetone/ketone > 46.00 <2.81 Above high normal Acetone/ketone [place] ([facility]) ID Date Data Source [id number] 02/17/2020 01:36:00 PM EST [place] ([facility]) Name Value Range Interpretation Code Description Data Kaye rce(s) Supporting Document(s) sars covid-19 amplification negative negative normal [facility] Date Data Source [id number] 02/17/2020 01:25:00 PM EST [place] ([facility]) Name Value Range Interpretation Code Description Data Kaye rce(s) Supporting Document(s) Hemoglobin A1c/Hemoglobin.total in Blood 8.5 % normal Hemoglobin a1C [place] ([facility]) estimated average glucose 197 mg/dL 60-110 Above high norm al Estimated Average Glucose [place] ([facility]) ID Date Data Source [id number] 02/17/2020 01:25:00 PM EST [place] ([facility]) Name Value Range Interpretation Code Description Data Kaye rce(s) Supporting Document(s) venous pH 7.371 units 7.330-7.430 normal Venous pH [place] ([facility]) venous partial pressure CO2 30.6 mmHg 38.0-50.0 Below low nor mal Venous Partial Pressure CO2 [place] ([facility]) venous partial pressure O2 83.8 mmHg 30.0-50.0 Above high nor mal Venous Partial Pressure O2 [place] ([facility]) venous base excess -2.0-2.0 Below low normal Venous Base Excess [place] ([facility]) venous total CO2 18.3 mEq/L 24.0-28.0 Below low normal Venous Total CO2 [place] ([facility]) venous HCO3 17.3 mEq/L 23.0-27.0 Below low normal Venous HCO3 [place] ([facility]) venous O2 saturation 96.0 % 60.0-80.0 Above high normal Venous O 2 Saturation [place] ([facility]) venous standard HCO3 18.9 mEq/L normal Venous Standard HCO3 [place] ([facility]) ID Date Data Source [id number] 02/17/2020 01:25:00 PM EST [place] ([facility]) Name Value Range Interpretation Code Description Data Kaye rce(s) Supporting Document(s) red blood count 3.98 10 4.00-5.40 Below low normal Red Blood Coun t [place] ([facility]) hemoglobin 11.0 g/dL 12.0-15.5 Below low normal Hemoglobin [place] ( [facility]) white blood count 9.6 10 4.0-10.0 normal White Blood Count [place] ([facility]) mean corpuscular volume 84.9 fL 80.0-96.0 normal Mean Corpusc ular Volume [place] ([facility]) hematocrit 33.8 % 36.0-47.0 Below low normal Hematocrit [place] ( [facility]) red cell distribution width 15.0 % 11.5-14.5 Above high no rmal Red Cell Distribution Width [place] ([facility]) mean corpuscular hemoglobin 27.6 pg 27.0-33.0 normal Mean Corpuscular Hemoglobin [place] ([facility]) mean corpuscular HGB conc 32.5 g/dL 32.0-36.5 normal Mean Corpu scular HGB Conc [place] ([facility]) neutrophils % 78.2 % 36.0-66.0 Above high normal Neutrophils % A [place] ([facility]) lymph % 14.8 % 24.0-44.0 Below low normal Lymph % [place] ( [facility]) platelet count, automated 333 10 150-450 normal Platelet C ount, Automated [place] ([facility]) eos % 0.1 % 0.0-3.0 normal Eos % [place] ([facility]) baso % 0.5 % 0.0-1.0 normal Baso % [place] ([facility]) mono % 6.1 % 0.0-5.0 Above high normal [place] % [place] ([facility]) immature granulocyte % 0.3 % 0-3.0 normal Immature Gran ulocyte % [place] ([facility]) neutrophils # 7.5 10 1.5-8.5 normal Neutrophils # [place] ( [facility]) nucleated red blood cell % 0.0 % 0-0 normal Nucleated Red Blood Cell % [place] ([facility]) eos # 0.0 10 0.0-0.5 normal Eos # [place] ([facility]) mono # 0.6 10 0.0-0.8 normal [place] # [place] ([facility]) lymph # 1.4 10 1.5-5.0 Below low normal Lymph # [place] ( [facility]) baso # 0.1 10 0.0-0.2 normal Baso # [place] ([facility]) ID Date Data Source [id number] 02/17/2020 01:25:00 PM EST [place] ([facility]) Name Value Range Interpretation Code Description Data Kaye rce(s) Supporting Document(s) venous pH 7.371 units 7.330-7.430 normal Venous pH [place] ([facility]) venous partial pressure CO2 30.6 mmHg 38.0-50.0 Below low nor mal Venous Partial Pressure CO2 [place] ([facility]) venous partial pressure O2 83.8 mmHg 30.0-50.0 Above high nor mal Venous Partial Pressure O2 [place] ([facility]) venous total CO2 18.3 mEq/L 24.0-28.0 Below low normal Venous Total CO2 [place] ([facility]) venous base excess -2.0-2.0 Below low normal Venous Base Excess [place] ([facility]) venous standard HCO3 18.9 mEq/L normal Venous Standard HCO3 [place] ([facility]) venous HCO3 17.3 mEq/L 23.0-27.0 Below low normal Venous HCO3 [place] ([facility]) venous O2 saturation 96.0 % 60.0-80.0 Above high normal Venous O 2 Saturation [place] ([facility]) ID Date Data Source [id number] 02/17/2020 01:22:00 PM EST [place] ([facility]) Name Value Range Interpretation Code Description Data Kaye rce(s) Supporting Document(s) istat HCT 37.0 % 38.0-51.0 Below low normal Istat HCT [place] ( [facility]) istat glucose 359 mg/dL 70-105 Above high normal Istat Glucose A [place] ([facility]) istat sodium 127 mEq/L 136-145 Below low normal Istat Sodium [facility] NA ([facility]) istat Ca++ 3.8 mg/dL 4.5-5.3 Below low normal Istat Ca++ [place] ( [facility]) istat potassium 7.8 mEq/L 3.5-5.1 Above high normal Istat Potassi um [place] ([facility]) istat CO2 21.0 mm/L 23.0-27.0 Below low normal Istat CO2 [place] ( [facility]) istat chloride 96 mEq/L 98-109 Below low normal Istat Chloride [place] ([facility]) istat creatinine 1.6 mg/dL 0.6-1.3 Above high normal Istat Creati nine [place] ([facility]) istat BUN 70 mg/dL 8-26 Above high normal Istat BUN [place] ([facility]) ID Date Data Source [id number] 11/30/2019 04:55:00 PM EDT [facility] Name Value Range Interpretation Code Description Data Kaye rce(s) Supporting Document(s) BG FASTING 304 mg/dL 70-100 [facility] ID Date Data Source [id number] 11/30/2019 04:55:00 PM EDT [facility] Name Value Range Interpretation Code Description Data Kaye rce(s) Supporting Document(s) HCT 31.4 % 36.0-47.0 L [facility] HGB 10.6 g/dL 12.0-15.5 L [facility] MCH 33.8 G/DL pg 32.0-36.5 N [facility] MCHC 28.6 PG % 27.0-33.0 N [facility] PLATELETS 319 10 10*3/mm3 150-450 N [facility] RBC 3.71 10 10*6/mm3 4.00-5.40 L [facility] RDW 14.7 % 11.5-14.5 H [facility] WBC TOTAL 10.0 4.0-10.0 N [facility] ID Date Data Source [id number] 10/23/2019 11:54:00 AM EDT [facility] Name Value Range Interpretation Code Description Data Kaye rce(s) Supporting Document(s) BG FASTING 97 mg/dL 70-100 N [facility] ID Date Data Source [id number] 10/23/2019 06:41:00 AM EDT [facility] Name Value Range Interpretation Code Description Data Kaye rce(s) Supporting Document(s) BG FASTING 296 mg/dL 70-100 H [facility] ID Date Data Source [id number] 10/23/2019 06:41:00 AM EDT [facility] Name Value Range Interpretation Code Description Data Kaye rce(s) Supporting Document(s) HCT 27.7 % 36.0-47.0 L [facility] HGB 9.1 g/dL 12.0-15.5 L [facility] MCH 32.9 G/DL pg 32.0-36.5 [facility] MCHC 28.0 PG % 27.0-33.0 N [facility] PLATELETS 279 10 10*3/mm3 150-450 N [facility] RBC 3.25 10 10*6/mm3 4.00-5.40 L [facility] RDW 16.7 % 11.5-14.5 H [facility] WBC TOTAL 8.3 4.0-10.0 N [facility] ID Date Data Source [id number] 10/22/2019 05:25:00 AM EDT [facility] Name Value Range Interpretation Code Description Data Kaye rce(s) Supporting Document(s) HCT 26.0 % 36.0-47.0 L [facility] HGB 8.7 g/dL 12.0-15.5 L [facility] MCH 33.5 G/DL pg 32.0-36.5 N [facility] MCHC 28.2 PG % 27.0-33.0 N [facility] PLATELETS 234 10 10*3/mm3 150-450 N [facility] RBC 3.09 10 10*6/mm3 4.00-5.40 L [facility] RDW 16.2 % 11.5-14.5 H [facility] WBC TOTAL 9.0 4.0-10.0 N [facility] ID Date Data Source [id number] 10/22/2019 05:25:00 AM EDT [facility] Name Value Range Interpretation Code Description Data Kaye rce(s) Supporting Document(s) BG FASTING 257 mg/dL 70-100 H [facility] ID Date Data Source [id number] 10/21/2019 03:16:00 PM EDT [facility] Name Value Range Interpretation Code Description Data Kaye rce(s) Supporting Document(s) HCT 29.0 % 36.0-47.0 L [facility] HGB 9.6 g/dL 12.0-15.5 L [facility] MCH 33.1 G/DL pg 32.0-36.5 N [facility] MCHC 28.6 PG % 27.0-33.0 N [facility] PLATELETS 162 10 10*3/mm3 150-450 N [facility] RBC 3.36 10 10*6/mm3 4.00-5.40 L [facility] RDW 16.4 % 11.5-14.5 H [facility] WBC TOTAL 8.2 4.0-10.0 N [facility] Procedure Vital Signs ID Date Data Source [id number] Name Value Range Interpretation Code Description Data Source(s) Body weight 2680 [oz_av] 2680 [oz_av] [facility] ([facility]) Systolic blood pressure 114 mm[Hg] 114 mm[Hg] A [place] ([facility]) Body mass index (BMI) [Ratio] 26.2 kg/m2 26.2 k g/m2 [place] ([facility]) Body height 67 [in_i] 67 [in_i] [facility] ([facility]) Diastolic blood pressure 77 mm[Hg] 77 mm[Hg] [place] ([facility]) Patient Treatment Plan of Care Planned Activity Planned Date Details Description Data Source (s) Prochlorperazine 25 MG Rectal Suppository [place] ([facility]) Penicillin V Potassium 500 MG Oral Tablet [place] ([facility]) Oxycodone Hydrochloride 5 MG Oral Tablet [place] ([facility]) Ondansetron 4 MG Oral Tablet [facility] ([facility]) Omeprazole 20 MG Delayed Release Oral Capsule [facility] ([facility]) Metoclopramide 5 MG Oral Tablet [facility] ([facility]) Metoclopramide 10 MG Oral Tablet [facility] ([facility])
[2020-05-30 14:21] VITALS: BP 100/65
== END 2020-05-30 14:25 | disposition home or self-care (01) ==
LOC: M ED 09:28
DX: F12.188 Cannabis abuse with other cannabis-induced disorder (principal); K31.84 Gastroparesis; E11.9 Type 2 diabetes mellitus without complications; I10 Essential (primary) hypertension; Z79.4 Long term (current) use of insulin; Z87.891 Personal history of nicotine dependence
CPT/HCPCS: 36415; 36600; 80047; 82803; 96361; 96374; 99284; J1630

== ENCOUNTER 2020-06-25 16:17 | Emergency (ER) | payer OTHER ==
[2020-06-25] MEDS ORDERED: METOCLOPRAMIDE INJ 10MG/2ML VIAL (J2765 PER 1) IV ONE (17:10)
[2020-06-25] MEDS ORDERED: NS 1,000 ML IV ONE (17:10)
[2020-06-25] MEDS ORDERED: KETOROLAC 30 MG/ML 1ML VIAL IV ONE (17:20)
[2020-06-25 18:02] LABS: BASO % 0.4 % (0.0-1.0); EOS % 0.1 % (0.0-3.0); HEMATOCRIT 35.6 % (36.0-47.0); HEMOGLOBIN 11.8 g/dl (12.0-15.5); LYMPH # 1.3 10^3/uL (1.5-5.0); LYMPH % 18.9 % (24.0-44.0); MEAN CORPUSCULAR HEMOGLOBIN 28.5 pg (27.0-33.0); MEAN CORPUSCULAR HGB CONC 33.1 g/dl (32.0-36.5); MONO # 0.5 10^3/uL (0.0-0.8); MONO % 7.9 % (2.0-8.0); NEUTROPHILS # 4.9 10^3/uL (1.5-8.5); NEUTROPHILS % 72.6 % (36.0-66.0); PLATELET COUNT, AUTOMATED 253 10^3/uL (150-450); RED BLOOD COUNT 4.14 10^6/uL (4.00-5.40); WHITE BLOOD COUNT 6.7 10^3/uL (4.0-10.0)
[2020-06-25 18:33] LABS: ALBUMIN 4.1 GM/DL (3.2-5.2); BILIRUBIN,DIRECT 0.3 MG/DL (0.0-0.2); CALCIUM LEVEL 9.3 MG/DL (8.5-10.1); CREATININE FOR GFR 1.24 MG/DL (0.55-1.30); GLOMERULAR FILTRATION RATE 59.8 (>58); TOTAL PROTEIN 7.6 GM/DL (6.4-8.2)
[2020-06-25] MEDS ORDERED: REGL5TAB2 PO (20:20)
[2020-06-25 20:49] VITALS: BP 137/94
== END 2020-06-25 20:52 | disposition home or self-care (01) ==
LOC: M ED 16:17
DX: R11.2 Nausea with vomiting, unspecified (principal); E11.9 Type 2 diabetes mellitus without complications; I10 Essential (primary) hypertension; K21.9 Gastro-esophageal reflux disease without esophagitis; F12.10 Cannabis abuse, uncomplicated
CPT/HCPCS: 36415; 80048; 80076; 83036; 83605; 83690; 85025; 96361; 96374; 96375; 99284; J1885; J2765

== ENCOUNTER 2020-07-02 00:04 | Inpatient (IN) | payer OTHER ==
[~2020-07-02] VITALS: Ht 170.2 cm; Wt 68.1 kg
[2020-07-02] MEDS ORDERED: MORPHINE 4 MG/ML 1ML VIAL/SYRINGE (J2270) IV ONE (00:45)
[2020-07-02] MEDS ORDERED: NS 1,000 ML IV ONE ×2 (00:45→05:20)
[2020-07-02] MEDS ORDERED: ONDANSETRON 4MG/2ML VIAL IV ONE (00:45)
[2020-07-02 01:23] LABS: VENOUS BASE EXCESS 0.7 (-2.0-2.0); VENOUS HCO3 25.3 MEQ/L (23.0-27.0); VENOUS O2 SATURATION 66.3 % (60.0-80.0); VENOUS PARTIAL PRESSURE CO2 40.6 mmHg (38.0-50.0); VENOUS PH 7.413 UNITS (7.330-7.430); VENOUS STANDARD HCO3 24.5 MEQ/L; VENOUS TOTAL CO2 26.6 MEQ/L (24.0-28.0)
[2020-07-02 01:27] LABS: HEMATOCRIT 31.5 % (36.0-47.0); HEMOGLOBIN 10.4 g/dl (12.0-15.5); MEAN CORPUSCULAR HEMOGLOBIN 28.1 pg (27.0-33.0); MEAN CORPUSCULAR VOLUME 85.1 fl (80.0-96.0); PLATELET COUNT, AUTOMATED 250 10^3/uL (150-450); WHITE BLOOD COUNT 6.3 10^3/uL (4.0-10.0)
[2020-07-02 01:58] LABS: ALT/SGPT 24 U/L (12-78); BILIRUBIN,TOTAL 0.7 MG/DL (0.2-1.0); BLOOD UREA NITROGEN 21 MG/DL (7-18); CALCIUM LEVEL 9.2 MG/DL (8.5-10.1); CARBON DIOXIDE LEVEL 28 MEQ/L (21-32); CHLORIDE LEVEL 92 MEQ/L (98-107); CK-MB VALUE MASS < 1.0 NG/ML (<3.6); CPK CREATINE PHOSPHOKINASE 32 U/L (26-192); CREATININE FOR GFR 1.47 MG/DL (0.55-1.30); GLOMERULAR FILTRATION RATE 49.1 (>58); GLUCOSE, FASTING 311 MG/DL (70-100); MB/CK RELATIVE INDEX 3.12 (< OR =4); POTASSIUM SERUM 3.6 MEQ/L (3.5-5.1); SODIUM LEVEL 132 MEQ/L (136-145); TOTAL PROTEIN 6.9 GM/DL (6.4-8.2); TROPONIN I < 0.02 NG/ML (< 0.10)
[2020-07-02 02:35] LABS: RSV AMPLIFICATION NEGATIVE (NEGATIVE)
[2020-07-02] MEDS ORDERED: ISOVUE-370 76% 100ML VIAL As Ordered ONE (02:41)
--- NOTE | 2020-07-02 04:12 | REPVR ---
PROCEDURE INFORMATION: Exam: CT Abdomen And Pelvis With Contrast Exam date and time: 07/02/2020 2:54 AM Age: 49 years old Clinical indication: Abdominal pain; Additional info: Abdominal plain, ttp all quadrants TECHNIQUE: Imaging protocol: Computed tomography of the abdomen and pelvis with contrast. Radiation optimization: All CT scans at this facility use at least one of these dose optimization techniques: automated exposure control; mA and/or kV adjustment per patient size (includes targeted exams where dose is matched to clinical indication); or iterative reconstruction. Contrast material: ISO 370; Contrast volume: 100 ml; Contrast route: INTRAVENOUS (IV); COMPARISON: CT ABD PELVIS W/O CONTRAST 02/17/2020 3:15 PM FINDINGS: Liver: The liver is low attenuation indicating hepatic steatosis. Gallbladder and bile ducts: Normal. No calcified stones. No ductal dilation. Pancreas: Main pancreatic duct is mildly dilated measuring up to 5 mm. No pancreatic mass or inflammatory changes. Spleen: Normal. No splenomegaly. Adrenal glands: Normal. No mass. Kidneys and ureters: Normal. No hydronephrosis. Stomach and bowel: There is a tubular fluid collection in the cul-de-sac measuring approximately 4.4 x 1.5 cm, possibly a short segment of small bowel colon and small bowel are unremarkable. No bowel obstruction. Appendix: No evidence of appendicitis. Intraperitoneal space: Unremarkable. No free air. No significant fluid collection. Vasculature: Unremarkable. No abdominal aortic aneurysm. Lymph nodes: Unremarkable. No enlarged lymph nodes. Urinary bladder: Unremarkable as visualized. Reproductive: 3.7 cm cyst in the right ovary. Uterus is unremarkable. Bones/joints: There are degenerative changes in the spine and pelvis. Soft tissues: Unremarkable. IMPRESSION: 1. Hepatic steatosis. 2. Small tubular fluid collection in the cul-de-sac may be in interposed loop of small bowel. Consider pelvic ultrasound follow-up to exclude hydrosalpinx. 3. 3.7 cm right ovarian cyst is not significantly changed. 4. Mild pancreatic duct dilation without signs of pancreatitis or mass. Electronically signed by: Dajuan Perez On 07/02/2020 04:12:35 AM
[2020-07-02] MEDS ORDERED: cefTRIAXone SOD 1 GM in D5W MINI-BAG PLUS 50 ML IV ONE (06:45)
[2020-07-02] MEDS ORDERED: METO5TAB2 PO (06:53)
[2020-07-02] MEDS ORDERED: MULTTAB86 PO (06:54)
[2020-07-02] MEDS ORDERED: ONDANSETRON 4 MG ORAL DISINTEGRATING TAB SL PRN (07:40)
[2020-07-02] MEDS ORDERED: METOCLOPRAMIDE 10 MG TAB PO ONE (07:45)
[2020-07-02] MEDS ORDERED: traMADol 50 MG TAB PO PRN (07:50)
[2020-07-02] MEDS ORDERED: GLUCAGON INJ 1MG VIAL SC PRN (07:50)
[2020-07-02] MEDS ORDERED: MORPHINE 2 MG/ML 1ML VIAL (J2270) IV PRN (07:50)
[2020-07-02] MEDS ORDERED: GLUCOSE 4GM CHEW TABLET PO PRN (07:50)
[2020-07-02 08:36] VITALS: BP 138/90
[2020-07-02] MEDS: NS 1,000 ML IV SCH ×3 (08:51→23:55)
[2020-07-02] MEDS: HumaLOG INSULIN (NovoLOG) PER UNIT SC SCH ×3 (08:52→18:00)
[2020-07-02] MEDS: HEPARIN SOD (PORCINE) 5000UNITS/ML 1ML VIAL/SYRINGE SC SCH ×2 (08:52→20:10)
--- NOTE | 2020-07-02 11:56 | HPEPDOC ---
[facility] Medical History & Physical Date of Admission Jul 02, 2020 Date of Service: Jul 02, 2020 Attending Physician: Laurence Tompkins MD History and Physical CHIEF COMPLAINT: Increased abd pain, n/v HISTORY OF PRESENT ILLNESS: Patient is a 49-year-old female with PMH of diabetes type 1, chronic kidney disease stage III, gastroparesis who presented to [facility] emergency room with the chief complaint of increased nausea with vomiting since 06/28/2020. The patient states she has had no new diet changes, no known illnesses, has been compliant with medications but suddenly became nauseous with increased vomiting at that time. She stated it was persistent and nothing would make it better at home. She has been unable to eat a full meal due to decreased appetite, nausea, vomiting, increased lethargy and has had increased weakness. She recently over the past several days began to have periumbilical/central abdominal pain, 8/10 on pain scale, localized, dull at times but sharp other times. She has had hospitalizations for abdominal pain, intractable nausea and vomiting in the past and has had similar symptoms. Last year she had upwards of 8 different admissions for similar symptoms. She has a questionable history of gastroparesis. The patient denies chest pain, shortness of breath, fevers, diarrhea. In the emergency room vital signs were stable. Abnormal labs included sodium 132, chloride 92, creatinine 1.47 (baseline is within normal limits), blood sugar 311. The patient states at home her blood sugars are and have been normal. UA was positive with the urine culture that was sent. Old HbA1c was 8.0 on 06/25/2020. CT of the abdomen and pelvis was negative for acute pathology. Niki ent was admitted for abdominal pain likely secondary to nausea/vomiting with questionable gastroparesis as cause, urinary tract infection and dehydration. REVIEW OF SYSTEMS: Neg except for what is mentioned above PAST MEDICAL HISTORY: Type 1 diabetes, diagnosed at 32 years of age Chronic kidney disease, stage III Gastroparesis PSURGHX: D&C, 2003 FHx: Her father is alive, 69 years old, no known medical problems Her mother is alive, 70 years old, diabetes and "bad heart" Brothers (3): No known medical problems Sister (1): Hypertension Sons (2): No known medical problems Daughters (2): No known medical problems SOCIAL HISTORY: Smoker: former Smoker (quit in 2019, had accrued a 4 year pack history by then) Alcohol: Denies Drugs: marijuana (occasionally to help with her appetite, she reports she last smoked marijuana about one week ago) ALLERGIES: Please see below. HOME MEDICATIONS: Please see below. PHYSICAL EXAMINATION: VS: Please see below CONSTITUTIONAL: Appears uncomfortable, AAO x 3 EYES: PERRLA, EOM intact HENT, MOUTH: Normocephalic, atraumatic, moist mucous membranes NECK: SUPPLE, no JVD, no lymphadenopathy, no carotid bruit CV: Regular rate and rhythm, S1S2 normal, no murmurs/rubs/gallops RESPIRATORY: Clear to auscultation bilaterally, no rales/rhonchi/wheezes GI: periumbilical, central abdominal pain on palpation. BS positive in 4 quadrants, soft, nondistended, no rebound or guarding, no organomegaly : Deferred MUSCULOSKELETAL: Normal ROM. No cyanosis, clubbing, swelling, joint deformity, extremity edema INTEGUMENTARY: Intact, no rashes, no lesions, no erythema NEUROLOGIC: Cranial Nerves II-XII are intact, no focal deficits PSYCHIATRIC: Mood and affect are normal LABORATORY DATA: Please see below IMAGING: CT abd/pelvis: 1. Hepatic steatosis. 2. Small tubular fluid collection in the cul-de-sac may be in interposed loop of small bowel. Consider pelvic ultrasound follow-up to exclude hydrosalpinx. 3. 3.7 cm right ovarian cyst is not significantly changed. 4. Mild pancreatic duct dilation without signs of pancreatitis or mass. ASSESSMENT: 49-year-old female with PMH of diabetes type 1, chronic kidney disease stage III, questionable gastroparesis related to diabetes admitted for abdominal pain likely secondary to nausea/vomiting with questionable gastroparesis as cause, urinary tract infection and dehydration. PLAN: Abdominal pain likely 2/2 to nausea/vomiting, gastroparesis -C/w home reglan, zofran, pain medication PRN -IVFs at 125 cc/hr, CLD JENNY decreased PO intake and vomiting -Cr 1.47, baseline is wnl -C/w IVFs, daily labs, avoid nephrotoxic medications UTI -UA +, UCx pending -Ceftriaxone Hyponatremia likely 2/2 to dehydration -C/w IVFs, daily labs, treatment of issues above DM type I -BS 300 -Last HbA1c 8.0 on 06/25/20, states to be compliant with home meds -No AG, pH wnl. prior history of DKA and episodes of hypoglycemia in hospital -CLD, advance to consistent carb when able -ISS, FS AC/HS. GI px -PPI DVT px. -Heparin DISPOSITION: Admitted as acute inpatient. Plan is discharge home when medically improved. Vital Signs Vital Signs Date Time Temp Pulse Resp B/P (MAP) Pulse Ox O2 Delivery O2 Flow Rate FiO2 07/02/20 08:36 96.9 102 18 138/90 (106) 100 07/02/20 08:03 Room Air Laboratory Data Labs 24H Laboratory Tests 2 07/02/20 00:19: Bedside Glucose (Misc Panel) 279H 07/02/20 00:41: Nucleated Red Blood Cells % (auto) 0.0, Anion Gap 12, Glomerular Filtration Rate 49.1L, Calcium Level 9.2, Total Bilirubin 0.7, Aspartate Amino Transf (AST/SGOT) 14, Alanine Aminotransferase (ALT/SGPT) 24, Alkaline Phosphatase 68, Total Creatine Kinase 32, Creatine Kinase MB < 1.0, Creatine Kinase MB Relative Index 3.12, Troponin I < 0.02, Total Protein 6.9, Albumin 4.0, Albumin/Globulin Ratio 1.4 07/02/20 00:58: Blood Gas Bicarbonate Standard 24.5, Venous Blood pH 7.413, Venous Blood Partial Pressure CO2 40.6, Venous Blood Partial Pressure O2 37.0, Venous Blood Total Carbon Dioxide 26.6, Venous Blood HCO3 25.3, Venous Blood Oxygen Saturation 66.3, Venous Blood Base Excess 0.7 07/02/20 01:21: POC Beta HCG, Quantitative < 5.0 07/02/20 01:32: Coronavirus (COVID-19)(PCR) NEGATIVE, Influenza Type A (RT-PCR) NEGATIVE, Influenza Type B (RT-PCR) NEGATIVE, Respiratory Syncytial Virus (PCR) NEGATIVE 07/02/20 06:00: Urine Color YELLOW, Urine Appearance HAZY, Urine pH 6.0, Urine Specific [place] 1.046, Urine Protein 1+H, Urine Glucose (UA) 3+H, Urine Ketones 2+H, Urine Blood 3+H, Urine Nitrite NEGATIVE, Urine Bilirubin NEGATIVE, Urine Urobilinogen 2.0H, Urine Leukocyte Esterase TRACEH, Urine WBC (Auto) 14H, Urine RBC (Auto) 2, Urine Hyaline Casts (Auto) 0, Urine Bacteria (Auto) 1+H, Urine Squamous Epithelial Cells 2, Urine Mucus (Auto) SMALL, Urine Sperm (Auto) 07/02/20 08:37: Bedside Glucose (Misc Panel) 289H 07/02/20 09:43: Lactic Acid Level 1.0 CBC/BMP Laboratory Tests 07/02/20 00:41 Microbiology Microbiology 07/02/20 Urine Culture, Received Pending Home Medications Scheduled Insulin Human Regular (Novolin R) 100 Unit/1 Ml Vial, 1 DOSE SC ACHS SLIDING SCALE Metoclopramide HCl (Metoclopramide HCl) 5 Mg Tablet, 5 MG PO Q6H Multivitamin (Multi-Vitamin Daily) 1 Each Tablet, 1 TAB PO DAILY Allergies Coded Allergies: No Known Allergies (Verified , 11/30/19) A-FIB/CHADSVASC A-FIB History Current/History of A-Fib/PAF?: No Current PO Anticoag Therapy: No Age/Risk Factor Scoring CHADSVASC: CHADSVASC Response (Comments) Value Age Risk Factor Age < 65 years old 0 Gender Risk Factor Female 1 Hx of CHF No 0 Hx of HTN No 0 Hx of Stroke/TIA/or VTE No 0 Hx of Diabetes Yes 1 Hx of Vascular Disease No 0 Total 2 Treatment Treatment ordered: Other Other anticoagulant ordered: heparin Laurence Tompkins MD Jul 02, 2020 11:56
[2020-07-02] MEDS: METOCLOPRAMIDE 5 MG TAB PO SCH ×2 (12:07→18:18)
[2020-07-02] MEDS: PANTOPRAZOLE 40MG VIAL (C9113 PER 1) IV SCH (12:14)
[2020-07-02 12:34] LABS: HEMATOCRIT 29.6 % (36.0-47.0); MEAN CORPUSCULAR HEMOGLOBIN 28.7 pg (27.0-33.0); MEAN CORPUSCULAR HGB CONC 33.8 g/dl (32.0-36.5); MEAN CORPUSCULAR VOLUME 85.1 fl (80.0-96.0); PLATELET COUNT, AUTOMATED 217 10^3/uL (150-450); RED BLOOD COUNT 3.48 10^6/uL (4.00-5.40); WHITE BLOOD COUNT 7.3 10^3/uL (4.0-10.0)
[2020-07-02 12:52] LABS: ALBUMIN 3.4 GM/DL (3.2-5.2); BILIRUBIN,TOTAL 0.3 MG/DL (0.2-1.0); CALCIUM LEVEL 8.7 MG/DL (8.5-10.1); CREATININE FOR GFR 1.25 MG/DL (0.55-1.30); GLOMERULAR FILTRATION RATE 59.3 (>58); POTASSIUM SERUM 4.3 MEQ/L (3.5-5.1); TOTAL PROTEIN 6.7 GM/DL (6.4-8.2)
[2020-07-02 14:00] VITALS: BP 138/90
--- NOTE | 2020-07-02 19:57 | ECGEPIP ---
[facility] - ED Test Date: 2020-07-02 Pat Name: CHINMAY CHEST Department: Room: - Gender: Female Hospital Director: MICHELL : 1970 Requested By: Eugene Lopez Order Number: [id number] Reading MD: Cyndy Cloud Measurements Intervals [place] Rate: 89 P: 75 AK: 162 QRS: 38 QRSD: 78 T: 16 QT: 382 QTc: 464 Interpretive Statements Normal sinus rhythm Septal infarct , age undetermined similar 05/19/20 Electronically Signed on 07-02-2020 19:57:12 EDT by Cyndy Cloud
[2020-07-02 22:00] VITALS: BP 134/90
[2020-07-03] MEDS: METOCLOPRAMIDE 5 MG TAB PO SCH ×2 (05:05)
[2020-07-03 06:00] VITALS: BP 135/90
[2020-07-03] MEDS: HumaLOG INSULIN (NovoLOG) PER UNIT SC SCH ×4 (07:30→17:58)
[2020-07-03] MEDS ORDERED: NS 1,000 ML IV ONE (08:00)
[2020-07-03] MEDS ORDERED: LIDOCAINE 1% MDV 20ML VIAL As Ordered ONE ×2 (08:20→10:54)
[2020-07-03 09:02] LABS: HEMATOCRIT 27.8 % (36.0-47.0); HEMOGLOBIN 9.2 g/dl (12.0-15.5); MEAN CORPUSCULAR HEMOGLOBIN 28.3 pg (27.0-33.0); MEAN CORPUSCULAR HGB CONC 33.1 g/dl (32.0-36.5); MEAN CORPUSCULAR VOLUME 85.5 fl (80.0-96.0); PLATELET COUNT, AUTOMATED 249 10^3/uL (150-450); RED BLOOD COUNT 3.25 10^6/uL (4.00-5.40)
[2020-07-03 09:33] LABS: ALBUMIN 3.3 GM/DL (3.2-5.2); ALT/SGPT 19 U/L (12-78); BILIRUBIN,TOTAL 0.5 MG/DL (0.2-1.0); BLOOD UREA NITROGEN 12 MG/DL (7-18); CALCIUM LEVEL 8.6 MG/DL (8.5-10.1); CARBON DIOXIDE LEVEL 19 MEQ/L (21-32); CHLORIDE LEVEL 100 MEQ/L (98-107); CREATININE FOR GFR 1.08 MG/DL (0.55-1.30); GLOMERULAR FILTRATION RATE > 60.0 (>58); GLUCOSE, FASTING 424 MG/DL (70-100); POTASSIUM SERUM 3.9 MEQ/L (3.5-5.1); SODIUM LEVEL 132 MEQ/L (136-145); TOTAL PROTEIN 6.2 GM/DL (6.4-8.2)
[2020-07-03] MEDS ORDERED: HumaLOG INSULIN (NovoLOG) PER UNIT SC ONE (10:15)
--- NOTE | 2020-07-03 10:31 | IPN ---
PROGRESS NOTE DATE: 07/03/2020 SUBJECTIVE: Patient is seen and examined at the bedside. Chart has been reviewed. Overnight, patient continues to be nauseous without any vomiting. Complains of right lower quadrant abdominal pain without rebound, abdominal distention, diarrhea, bright red blood per rectum, melena, black tarry stools. Afebrile, no chills. OBJECTIVE: PHYSICAL EXAMINATION: Vital signs: Temperature 97.2, pulse 85, respiratory rate 15, blood pressure 135/90, 100% on room air. Generally: Awake, alert, oriented to person, place, and time, answering questions appropriately. No jugular venous distension (JVD), no thyromegaly, no icterus, no jaundice. No use of respiratory accessory muscles. Lungs: Clear to auscultation. No wheezing, rales, or rhonchi. Heart: S1, S2, sinus rhythm. Abdomen: Soft, some tenderness in the right lower quadrant, epigastric region. No rebound or guarding. No hepatosplenomegaly. Extremities: No cyanosis, clubbing, or pitting edema. LABORATORY DATA: Please see the chart. CT abdomen and pelvis: Hepatosteatosis, small tubular fluid collection in the cul-de-sac, 3.7 cm right ovarian cyst not changed, mild pancreatic duct dilatation without pancreatitis. ASSESSMENT AND PLAN: 49-year-old female with type 1 diabetes, chronic kidney disease stage III, gastroparesis secondary to diabetes, presented with intractable nausea and vomiting with abnormal urinalysis, being treated for a urinary tract infection (UTI). IMPRESSION: 1. Urinary tract infection. Urine culture is contaminated. Re-obtain a urinalysis (UA), urine culture and sensitivity (C and S). Currently on IV ceftriaxone to be given for 3 days. 2. Intractable nausea and vomiting, most likely secondary to diabetic gastroparesis. Continue with Reglan every 6 hours and Phenergan for comfort, IV fluids, and prevent hypoglycemia with dextrose 5% (D5) half-normal saline after normal saline 1 liter bolus. 3. Acute kidney injury and chronic kidney disease stage III due to intractable nausea and vomiting. 4. Metabolic acidosis secondary to vomiting. Currently on supportive care with IV fluids and antiemetics. 5. Hyponatremia secondary to dehydration, resolved. 6. Anemia of chronic disease. No acute indication for red blood cell (RBC) transfusion. 7. Poor IV access. Midline placement. DISPOSITION: Change to inpatient status due to acute medical issues as stated above. MTDD
[2020-07-03] MEDS: METOCLOPRAMIDE INJ 10MG/2ML VIAL (J2765 PER 1) IV SCH ×2 (12:11→18:36)
[2020-07-03] MEDS: PANTOPRAZOLE 40MG VIAL (C9113 PER 1) IV SCH (12:11)
[2020-07-03] MEDS: ENOXAPARIN 40MG/0.4ML SYRINGE (J1650 PER 10MG) SC SCH (12:13)
[2020-07-03] MEDS: PROMETHAZINE INJ 25 MG/ML VIAL (J2550) IV SCH ×2 (12:13→18:36)
[2020-07-03] MEDS: cefTRIAXone SOD 1 GM in D5W MINI-BAG PLUS 50 ML IV SCH (12:33)
[2020-07-03] MEDS: KCL 10MEQ IN D5/0.45NS 1000ML 1,000 ML IV SCH ×2 (12:34→21:32)
--- NOTE | 2020-07-03 13:23 | REP ---
PROCEDURE NAME: PICC LINE INSERTION W/SITERITE CLINICAL INFORMATION: Poor iv access. COMPARISON: None. PROCEDURE DESCRIPTION: The procedure was performed by FARNAZ Gutierrez, under the direct supervision of Dr. Weaver. The risks and benefits of the procedure were explained to the patient and an informed consent was obtained both verbally and written. Directly prior to the start of the procedure a formal time-out was completed in the procedure room. The right medial brachial vein was localized using ultrasound guidance. The skin was prepped and draped in sterile fashion. One mL of 1% lidocaine 10 mg/mL was used as a local anesthetic. Using ultrasound guidance the right medial brachial vein was cannulated, and a 0.018 guidewire was inserted and advanced to the level of SVC using fluoroscopic guidance. The needle was removed and a 5.5 Slovak dilator and peel-away sheath was inserted over the guidewire. A 5.5 Slovak dual lumen catheter was cut to a length of 42 cm. The dilator was removed and the catheter was inserted over the guidewire with the tip ending at the level of the SVC. The peel-away sheath was removed and the catheter was flushed with heparinized saline as per hospital protocol. The catheter was affixed to the skin and a sterile dressing was applied. The patient tolerated the procedure well and there were no immediate complications. CONCLUSION: PICC line insertion into the right medial brachial vein. 0.1 minutes of fluoroscopy time was utilized for this procedure. Some fluoroscopic images are performed with last image hold technology. These images require no additional radiation. <Electronically signed by Kelley Li > 07/03/20 [id number] <Electronically signed by Ari Weaver > 07/03/20 [id number]
[2020-07-03] MEDS ORDERED: HYDROMORPHONE HCL 0.5 MG/ 0.5 ML SYRINGE (J1170 PER 1) IV ONE (13:35)
[2020-07-03 14:00] VITALS: BP 126/84
[2020-07-03] MEDS: KETOROLAC 30 MG/ML 1ML VIAL IV SCH ×2 (14:06→18:36)
[2020-07-03] MEDS: SUCRALFATE SUSP 1GM/10ML UD PO SCH ×2 (17:30→21:00)
[2020-07-03] MEDS: SODIUM CHLORIDE 0.9% INJ 10 ML SYR IV SCH (18:37)
[2020-07-03 20:00] VITALS: BP 121/81
[2020-07-03] MEDS: LEVEMIR (INSULIN DETEMIR) 1 UNITS/0.01ML SC SCH (21:32)
[2020-07-04] MEDS: KETOROLAC 30 MG/ML 1ML VIAL IV SCH ×4 (00:22→17:29)
[2020-07-04] MEDS: PROMETHAZINE INJ 25 MG/ML VIAL (J2550) IV SCH ×2 (00:23→05:35)
[2020-07-04] MEDS: HumaLOG INSULIN (NovoLOG) PER UNIT SC SCH ×4 (00:23→17:14)
[2020-07-04] MEDS: METOCLOPRAMIDE INJ 10MG/2ML VIAL (J2765 PER 1) IV SCH ×2 (00:23→05:34)
[2020-07-04] MEDS: SODIUM CHLORIDE 0.9% INJ 10 ML SYR IV SCH ×2 (05:35→17:29)
[2020-07-04 06:00] VITALS: BP 122/85
[2020-07-04 06:09] LABS: HEMATOCRIT 25.3 % (36.0-47.0); HEMOGLOBIN 8.2 g/dl (12.0-15.5); MEAN CORPUSCULAR HEMOGLOBIN 28.2 pg (27.0-33.0); MEAN CORPUSCULAR HGB CONC 32.4 g/dl (32.0-36.5); MEAN CORPUSCULAR VOLUME 86.9 fl (80.0-96.0); PLATELET COUNT, AUTOMATED 225 10^3/uL (150-450); RED BLOOD COUNT 2.91 10^6/uL (4.00-5.40)
[2020-07-04 06:39] LABS: ALT/SGPT 18 U/L (12-78); BILIRUBIN,TOTAL 0.2 MG/DL (0.2-1.0); BLOOD UREA NITROGEN 10 MG/DL (7-18); CALCIUM LEVEL 8.6 MG/DL (8.5-10.1); CARBON DIOXIDE LEVEL 27 MEQ/L (21-32); CHLORIDE LEVEL 108 MEQ/L (98-107); CREATININE FOR GFR 1.05 MG/DL (0.55-1.30); GLOMERULAR FILTRATION RATE > 60.0 (>58); GLUCOSE, FASTING 65 MG/DL (70-100); POTASSIUM SERUM 3.1 MEQ/L (3.5-5.1); SODIUM LEVEL 140 MEQ/L (136-145); TOTAL PROTEIN 5.3 GM/DL (6.4-8.2)
[2020-07-04] MEDS: cefTRIAXone SOD 1 GM in D5W MINI-BAG PLUS 50 ML IV SCH (06:47)
[2020-07-04] MEDS: DEXTROSE 50% 50 ML SYRINGE IV PRN (07:01)
[2020-07-04] MEDS: LEVEMIR (INSULIN DETEMIR) 1 UNITS/0.01ML SC SCH (07:45)
[2020-07-04] MEDS: SUCRALFATE 1 GM TAB PO SCH ×3 (08:30→13:04)
[2020-07-04] MEDS: ENOXAPARIN 40MG/0.4ML SYRINGE (J1650 PER 10MG) SC SCH (08:31)
[2020-07-04] MEDS ORDERED: POTASSIUM CHLORIDE 10 MEQ SR TABLET PO SCH (09:00)
[2020-07-04] MEDS ORDERED: PANTOPRAZOLE 40MG TAB (PROTONIX) PO SCH ×2 (09:00→21:00)
--- NOTE | 2020-07-04 09:58 | REP ---
INDICATION: right edema s/p picc r/o dvt COMPARISON: None. None TECHNIQUE: Osorio scale and color Doppler evaluation using linear high frequency transducer. FINDINGS: Ultrasound examination of the right upper extremity deep venous structures demonstrates normal flow characteristics without evidence for deep venous thrombosis. PICC line is identified within the right brachial-subclavian vein. IMPRESSION: No evidence for deep venous thrombosis. <Electronically signed by Zhang Benitez > 07/04/20 [id number]
[2020-07-04] MEDS ORDERED: traMADol 50 MG TAB PO ONE (10:15)
[2020-07-04] MEDS: METOCLOPRAMIDE 10 MG TAB PO SCH ×2 (12:00→13:04)
[2020-07-04] MEDS: GI COCKTAIL 50ML BTL(HYOSCYAMINE/MAALOX/LIDOCAINE VISCOUS)(1:3:1) PO ONE ×2 (12:00→13:04)
--- NOTE | 2020-07-04 12:40 | REP ---
INDICATION: picc line placement-occluded not flushing. COMPARISON: 05/19/2020. TECHNIQUE: SINGLE PORTABLE AP VIEW OF THE CHEST WAS PERFORMED. FINDINGS: There is no acute infiltrate or pulmonary edema. The heart mediastinum are within normal limits. Right arm PICC line is noted. The tip is in the superior vena cava. IMPRESSION: NO ACUTE PULMONARY DISEASE. Right arm PICC line with the tip in the superior vena cava. <Electronically signed by Asad Osorio > 07/04/20 [id number]
--- NOTE | 2020-07-04 12:40 | IPNPDOC ---
Date Seen The patient was seen on 07/04/20. Progress Note Progress note has been dictated. . If needed urgently, Please call [employer] at [phone] for stat litigation legal secretary VS, I&O, 24H, Fishbone Vital Signs/I&O Vital Signs Date Time Temp Pulse Resp B/P (MAP) Pulse Ox O2 Delivery O2 Flow Rate FiO2 07/04/20 10:40 18 07/04/20 06:00 98.1 87 122/85 (97) 100 Room Air I&O- Last 24 Hours up to 6 AM 07/04/20 06:00 Intake Total 1560 ml Output Total 750 ml Balance 810 ml Laboratory Data 24H LABS Laboratory Tests 2 07/03/20 17:54: Bedside Glucose (Misc Panel) 56L 07/03/20 18:13: Bedside Glucose (Misc Panel) 68L 07/03/20 18:31: Bedside Glucose (Misc Panel) 84 07/03/20 21:08: Bedside Glucose (Misc Panel) 213H 07/04/20 00:02: Bedside Glucose (Misc Panel) 250H 07/04/20 05:54: Nucleated Red Blood Cells % (auto) 0.0, Anion Gap 5L, Glomerular Filtration Rate > 60.0, Calcium Level 8.6, Total Bilirubin 0.2#, Aspartate Amino Transf (AST/SGOT) 11, Alanine Aminotransferase (ALT/SGPT) 18, Alkaline Phosphatase 50, Total Protein 5.3L, Albumin 3.0L, Albumin/Globulin Ratio 1.3 07/04/20 06:18: Bedside Glucose (Misc Panel) 56L 07/04/20 06:43: Bedside Glucose (Misc Panel) 56L 07/04/20 07:29: Bedside Glucose (Misc Panel) 114H 07/04/20 11:22: Bedside Glucose (Misc Panel) 85 CBC/BMP Laboratory Tests 07/04/20 05:54 Microbiology Microbiology 07/02/20 Urine Culture - Final, Complete PRECIOUS ROSE MD Jul 04, 2020 12:40
[2020-07-04] MEDS: KCL 20MEQ in NS 1000ML 1,000 ML IV SCH ×2 (13:03→23:30)
[2020-07-04 14:00] VITALS: BP 133/87
[2020-07-04] MEDS ORDERED: traMADol 50 MG TAB PO PRN (14:15)
[2020-07-04] MEDS ORDERED: GI COCKTAIL 50ML BTL(HYOSCYAMINE/MAALOX/LIDOCAINE VISCOUS)(1:3:1) PO PRN (18:00)
[2020-07-04] MEDS: PANTOPRAZOLE 40MG VIAL (C9113 PER 1) IV SCH (21:29)
[2020-07-04 22:00] VITALS: BP 110/70
[2020-07-04] MEDS: ONDANSETRON 4 MG TAB PO PRN (23:05)
[2020-07-05] MEDS: KETOROLAC 30 MG/ML 1ML VIAL IV SCH ×4 (00:29→17:51)
[2020-07-05 06:00] VITALS: BP 149/95
[2020-07-05] MEDS: ONDANSETRON 4 MG TAB PO PRN (06:36)
[2020-07-05] MEDS: HumaLOG INSULIN (NovoLOG) PER UNIT SC SCH ×4 (06:36→17:52)
[2020-07-05] MEDS: cefTRIAXone SOD 1 GM in D5W MINI-BAG PLUS 50 ML IV SCH (06:37)
[2020-07-05] MEDS ORDERED: traMADol 50 MG TAB PO ONE (09:00)
[2020-07-05] MEDS ORDERED: SUCRALFATE SUSP 1GM/10ML UD PO ONE (09:00)
[2020-07-05] MEDS: SODIUM CHLORIDE 0.9% INJ 10 ML SYR IV SCH ×2 (09:19→17:52)
[2020-07-05] MEDS: METOCLOPRAMIDE INJ 10MG/2ML VIAL (J2765 PER 1) IV SCH ×3 (09:20→21:00)
[2020-07-05] MEDS: PANTOPRAZOLE 40MG VIAL (C9113 PER 1) IV SCH ×2 (09:21→22:04)
[2020-07-05] MEDS: ENOXAPARIN 40MG/0.4ML SYRINGE (J1650 PER 10MG) SC SCH (09:21)
--- NOTE | 2020-07-05 09:55 | IPNPDOC ---
Date Seen The patient was seen on 07/05/20. Progress Note Progress note has been dictated. If needed urgently, Please call [employer] at [phone] for stat c unix developer VS, I&O, 24H, Fishbone Vital Signs/I&O Vital Signs Date Time Temp Pulse Resp B/P (MAP) Pulse Ox O2 Delivery O2 Flow Rate FiO2 07/05/20 09:20 15 07/05/20 06:00 98.2 92 149/95 (113) 99 Room Air I&O- Last 24 Hours up to 6 AM 07/05/20 06:00 Intake Total 1400 ml Output Total 4300 ml Balance -2900 ml Laboratory Data 24H LABS Laboratory Tests 2 07/04/20 11:22: Bedside Glucose (Misc Panel) 85 07/04/20 15:37: Urine Color STRAW, Urine Appearance CLEAR, Urine pH 7.0, Urine Specific [place] 1.008, Urine Protein NEGATIVE, Urine Glucose (UA) NEGATIVE, Urine Ketones 1+H, Urine Blood 1+H, Urine Nitrite NEGATIVE, Urine Bilirubin NEGATIVE, Urine Urobilinogen 0.2, Urine Leukocyte Esterase TRACEH, Urine WBC (Auto) 2, Urine RBC (Auto) 3, Urine Hyaline Casts (Auto) 0, Urine Bacteria (Auto) NEGATIVE, Urine Squamous Epithelial Cells 0, Urine Sperm (Auto) 07/04/20 17:04: Bedside Glucose (Misc Panel) 73 07/05/20 00:01: Bedside Glucose (Misc Panel) 133H 07/05/20 06:12: Bedside Glucose (Misc Panel) 256H Microbiology Microbiology 07/04/20 Urine Culture, Received Pending 07/02/20 Urine Culture - Final, Complete PRECIOUS ROSE MD Jul 05, 2020 09:55
[2020-07-05] MEDS ORDERED: GI COCKTAIL 50ML BTL(HYOSCYAMINE/MAALOX/LIDOCAINE VISCOUS)(1:3:1) PO ONE (10:00)
--- NOTE | 2020-07-05 10:35 | IPN ---
PROGRESS NOTE DATE: 07/05/2020 SUBJECTIVE: She continues to complain of intractable nausea, vomiting, epigastric abdominal pain, she is able to tolerate some liquid but is unable to take any solid diet. No diarrhea. No fever or chills. No shortness of breath. The patient has no diaphoresis. No bright-red blood per rectum, melena, cough, or emesis. Previous EGD showed esophagitis. Patient had been treated for gastroparesis in the past with small frequent mls of Reglan and Carafate. No other issues per nursing. OBJECTIVE: VITAL SIGNS: Temperature is 98.2, pulse 92, respiratory rate is 18, blood pressure is 149/95, 99% on room air. GENERAL: The patient is in no respiratory distress. Speaks in full sentences. HEENT: Anicteric. No jaundice. LUNGS: Clear to auscultation. No wheezing, rales or rhonchi. HEART: S1 and S2, sinus rhythm. ABDOMEN: Soft, tender in the epigastric region. No rebound or guarding. Positive bowel sounds x4 quadrants. EXTREMITIES: No cyanosis, clubbing or pitting edema. LABORATORY DATA: White count is 6, hemoglobin is 8.2, hematocrit 25, platelet count 225,000. Sodium 140, potassium is 3.1, chloride 108, bicarbonate 27, BUN 10, creatinine 1.05, glucose of 65. Today's labs are still pending. ASSESSMENT AND PLAN: A 49-year-old female admitted due to intractable nausea and vomiting, abdominal pain with abnormal urinalysis treated for UTI with Ceftriaxone. Found to have persistent nausea and vomiting, being treated for gastroparesis but unable to tolerate a solid diet. IMPRESSION: 1. Diabetic gastroparesis on Reglan and small frequent meals as tolerated, Carafate. History of esophagitis. Previous EGD, was in 2009. GI has been consulted to determine need for repeat EGD. Currently on PPI. IV b.i.d. since she is not tolerating an oral diet with solids as well as Carafate. 2. Chronic kidney disease, Stage III, at baseline creatinine. 3. Abnormal urinalysis, being treated for a UTI due to complaints of abdominal complaints and abnormal UA, urine culture initially was contaminated. Repeat urine culture is still pending. [facility]
[2020-07-05 11:17] LABS: BASO % 0.3 % (0.0-1.0); EOS # 0.1 10^3/uL (0.0-0.5); EOS % 1.7 % (0.0-3.0); HEMATOCRIT 25.4 % (36.0-47.0); HEMOGLOBIN 8.7 g/dl (12.0-15.5); LYMPH # 1.2 10^3/uL (1.5-5.0); MEAN CORPUSCULAR HEMOGLOBIN 29.1 pg (27.0-33.0); MEAN CORPUSCULAR HGB CONC 34.3 g/dl (32.0-36.5); MEAN CORPUSCULAR VOLUME 84.9 fl (80.0-96.0); MONO # 0.4 10^3/uL (0.0-0.8); MONO % 6.8 % (2.0-8.0); NEUTROPHILS # 4.6 10^3/uL (1.5-8.5); PLATELET COUNT, AUTOMATED 224 10^3/uL (150-450); RED BLOOD COUNT 2.99 10^6/uL (4.00-5.40); WHITE BLOOD COUNT 6.4 10^3/uL (4.0-10.0)
[2020-07-05 11:48] LABS: ALT/SGPT 14 U/L (12-78); BILIRUBIN,TOTAL 0.2 MG/DL (0.2-1.0); BLOOD UREA NITROGEN 4 MG/DL (7-18); CALCIUM LEVEL 8.2 MG/DL (8.5-10.1); CARBON DIOXIDE LEVEL 27 MEQ/L (21-32); CHLORIDE LEVEL 105 MEQ/L (98-107); CREATININE FOR GFR 0.94 MG/DL (0.55-1.30); GLOMERULAR FILTRATION RATE > 60.0 (>58); GLUCOSE, FASTING 70 MG/DL (70-100); POTASSIUM SERUM 3.2 MEQ/L (3.5-5.1); SODIUM LEVEL 138 MEQ/L (136-145); TOTAL PROTEIN 5.4 GM/DL (6.4-8.2)
[2020-07-05] MEDS: DEXTROSE 50% 50 ML SYRINGE IV PRN (12:14)
[2020-07-05 14:00] VITALS: BP 147/94
[2020-07-05] MEDS: SODIUM CHLORIDE 0.9% INJ 10 ML SYR IV PRN (15:57)
[2020-07-05 22:00] VITALS: BP 102/62
[2020-07-06] MEDS: DEXTROSE 50% 50 ML SYRINGE IV PRN (00:16)
[2020-07-06] MEDS: KETOROLAC 30 MG/ML 1ML VIAL IV SCH ×4 (00:36→17:21)
[2020-07-06] MEDS: METOCLOPRAMIDE INJ 10MG/2ML VIAL (J2765 PER 1) IV SCH ×5 (03:00→20:41)
[2020-07-06] MEDS: HumaLOG INSULIN (NovoLOG) PER UNIT SC SCH ×4 (05:39→17:05)
[2020-07-06 06:00] VITALS: BP 118/74
[2020-07-06] MEDS: KCL 40MEQ IN D5/0.45NS 1000ML 1,000 ML IV SCH ×2 (06:14→12:48)
[2020-07-06] MEDS: SODIUM CHLORIDE 0.9% INJ 10 ML SYR IV SCH ×2 (06:15→17:21)
[2020-07-06] MEDS: MAG SULF 1GM/100ML (MAG RUN) 1 GM in IV 1 EA IV SCH ×3 (06:15→07:43)
[2020-07-06 07:01] LABS: BASO % 0.6 % (0.0-1.0); EOS # 0.2 10^3/uL (0.0-0.5); EOS % 3.6 % (0.0-3.0); HEMATOCRIT 25.5 % (36.0-47.0); HEMOGLOBIN 8.5 g/dl (12.0-15.5); LYMPH # 2.1 10^3/uL (1.5-5.0); LYMPH % 43.9 % (24.0-44.0); MEAN CORPUSCULAR HEMOGLOBIN 28.6 pg (27.0-33.0); MEAN CORPUSCULAR HGB CONC 33.3 g/dl (32.0-36.5); MEAN CORPUSCULAR VOLUME 85.9 fl (80.0-96.0); MONO # 0.5 10^3/uL (0.0-0.8); MONO % 9.5 % (2.0-8.0); NEUTROPHILS % 42.2 % (36.0-66.0); PLATELET COUNT, AUTOMATED 237 10^3/uL (150-450); RED BLOOD COUNT 2.97 10^6/uL (4.00-5.40); WHITE BLOOD COUNT 4.8 10^3/uL (4.0-10.0)
[2020-07-06 07:24] LABS: HEMOGLOBIN A1c 8.4 %
[2020-07-06 07:36] LABS: ERYTHROCYTE SEDIMENTATION RATE 14 mm/hr (0-20)
[2020-07-06 07:40] LABS: ALBUMIN 3.2 GM/DL (3.2-5.2); ALT/SGPT 16 U/L (12-78); AMYLASE 21 U/L (25-115); BILIRUBIN,TOTAL 0.3 MG/DL (0.2-1.0); BLOOD UREA NITROGEN 4 MG/DL (7-18); C REACTIVE PROTEIN QUANTITATIV 0.71 MG/DL (0.00-0.30); CALCIUM LEVEL 8.4 MG/DL (8.5-10.1); CARBON DIOXIDE LEVEL 25 MEQ/L (21-32); CHLORIDE LEVEL 102 MEQ/L (98-107); CREATININE FOR GFR 0.99 MG/DL (0.55-1.30); GLOMERULAR FILTRATION RATE > 60.0 (>58); GLUCOSE, FASTING 154 MG/DL (70-100); LIPASE 32 U/L (73-393); POTASSIUM SERUM 3.6 MEQ/L (3.5-5.1); SODIUM LEVEL 136 MEQ/L (136-145); TOTAL PROTEIN 5.5 GM/DL (6.4-8.2)
[2020-07-06] MEDS ORDERED: PROT1TAB2 PO (07:56)
[2020-07-06] MEDS ORDERED: CARA1TAB6 PO (07:56)
[2020-07-06] MEDS ORDERED: TRAM50TA2 PO (07:58)
[2020-07-06] MEDS ORDERED: QC A650T3 PO (07:58)
[2020-07-06] MEDS ORDERED: REGL10TA6 PO (08:02)
[2020-07-06] MEDS: ENOXAPARIN 40MG/0.4ML SYRINGE (J1650 PER 10MG) SC SCH (09:00)
[2020-07-06] MEDS: PANTOPRAZOLE 40MG VIAL (C9113 PER 1) IV SCH ×2 (09:14→20:41)
[2020-07-06] MEDS: SODIUM CHLORIDE 0.9% INJ 10 ML SYR IV PRN (09:15)
--- NOTE | 2020-07-06 10:15 | DS.PDOC ---
Discharge Summary General Date of Admission Jul 03, 2020 at 08:05 Date of Discharge 07/06/30 Discharge Summary Please have community development director call [employer] at [phone] for stat broadband technician if discharge summary is needed urgently. Hospitalist discharge summary has been dictated Job number [id number] Vital Signs/I&Os Vital Signs Date Time Temp Pulse Resp B/P (MAP) Pulse Ox O2 Delivery O2 Flow Rate FiO2 07/06/20 06:00 98.5 80 17 118/74 (89) 96 Room Air I&O- Last 24 Hours up to 6 AM 07/06/20 06:00 Intake Total 2830 ml Output Total 925 ml Balance 1905 ml Laboratory Data Labs 24H Laboratory Tests 2 07/05/20 11:05: Immature Granulocyte % (Auto) 0.2, Neutrophils (%) (Auto) 72.0H, Lymphocytes (%) (Auto) 19.0L, Monocytes (%) (Auto) 6.8, Eosinophils (%) (Auto) 1.7, Basophils (%) (Auto) 0.3, Neutrophils # (Auto) 4.6, Lymphocytes # (Auto) 1.2L, Monocytes # (Auto) 0.4, Eosinophils # (Auto) 0.1, Basophils # (Auto) 0.0, Nucleated Red Blood Cells % (auto) 0.0, Anion Gap 6L, Glomerular Filtration Rate > 60.0, Calcium Level 8.2L, Magnesium Level 1.1L, Total Bilirubin 0.2, Aspartate Amino Transf (AST/SGOT) 11, Alanine Aminotransferase (ALT/SGPT) 14, Alkaline Phosphat ase 51, Total Protein 5.4L, Albumin 3.0L, Albumin/Globulin Ratio 1.3 07/05/20 11:34: Bedside Glucose (Misc Panel) 52L 07/05/20 11:54: Bedside Glucose (Misc Panel) 50L 07/05/20 12:09: Bedside Glucose (Misc Panel) 41L 07/05/20 12:53: Bedside Glucose (Misc Panel) 170H 07/05/20 16:59: Bedside Glucose (Misc Panel) 216H 07/06/20 00:05: Bedside Glucose (Misc Panel) 36*L 07/06/20 00:23: Bedside Glucose Confirm (Misc) 45 07/06/20 00:41: Bedside Glucose (Misc Panel) 106H 07/06/20 05:26: Bedside Glucose (Misc Panel) 115H 07/06/20 06:11: Immature Granulocyte % (Auto) 0.2, Neutrophils (%) (Auto) 42.2, Lymphocytes (%) (Auto) 43.9, Monocytes (%) (Auto) 9.5H, Eosinophils (%) (Auto) 3.6H, Basophils (%) (Auto) 0.6, Neutrophils # (Auto) 2.0, Lymphocytes # (Auto) 2.1, Monocytes # (Auto) 0.5, Eosinophils # (Auto) 0.2, Basophils # (Auto) 0.0, Nucleated Red Blood Cells % (auto) 0.0, Erythrocyte Sedimentation Rate 14, Anion Gap 9, Glomerular Filtration Rate > 60.0, Estimated Mean Plasma Glucose 194H, Hemoglobin A1c 8.4, Lactic Acid Level 0.6, Calcium Level 8.4L, Magnesium Level 1.0L, Total Bilirubin 0.3, Aspartate Amino Transf (AST/SGOT) 9, Alanine Aminotransferase (ALT/SGPT) 16, Alkaline Phosphatase 50, C-Reactive Protein, Quantitative 0.71H, Total Protein 5.5L, Albumin 3.2, Albumin/Globulin Ratio 1.4, Amylase Level 21L, Lipase 32L, B-Hydroxybutyrate 28.60H CBC/BMP Laboratory Tests 07/05/20 11:05 07/06/20 06:11 FSBS Laboratory Tests Test 07/05/20 11:34 07/05/20 11:54 07/05/20 12:09 07/05/20 12:53 Range/Units Bedside Glucose (Misc Panel) 52 50 41 170 70-105 MG/DL Test 07/05/20 16:59 07/06/20 00:05 07/06/20 00:41 07/06/20 05:26 Range/Units Bedside Glucose (Misc Panel) 216 36 106 115 70-105 MG/DL Microbiology Microbiology 07/04/20 Urine Culture - Final, Complete 07/02/20 Urine Culture - Final, Complete Discharge Medications Scheduled Acetaminophen (Acetaminophen 8 Hour) 650 Mg Tablet.er, 650 MG PO TID Insulin Human Regular (Novolin R) 100 Unit/1 Ml Vial, 1 DOSE SC ACHS, (Reported) SLIDING SCALE Metoclopramide HCl (Reglan) 10 Mg Tablet, 10 MG PO ACHS before food and bedtime Multivitamin (Multi-Vitamin Daily) 1 Each Tablet, 1 TAB PO DAILY, (Reported) Pantoprazole Sodium (Protonix) 40 Mg Tablet.dr, 40 MG PO DAILY Sucralfate (Carafate) 1 Gm Tablet, 1 GM PO ACHS 4 times per day take on an empty stomach Scheduled PRN Tramadol HCl (Tramadol HCl) 50 Mg Tablet, 50 MG PO Q4HP PRN for pain Allergies Coded Allergies: No Known Allergies (Verified , 11/30/19) PRECIOUS ROSE MD Jul 06, 2020 10:15
--- NOTE | 2020-07-06 11:28 | DSES ---
DISCHARGE SUMMARY DATE OF ADMISSION: 07/03/2020 DATE OF DISCHARGE: 07/06/2020 PROCEDURES DURING THIS ADMISSION: 1. Peripherally inserted central catheter (PICC) line placement due to poor intravenous (IV) access. 2. Esophagogastroduodenoscopy (EGD) by Dr. Praveen Gomez.-NORMAL 07/06/20 DEVELOPMENT ADVISOR: Associate Professor Of Theatre, Dr. Gomez. PRIMARY DISCHARGE DIAGNOSES: 1. Diabetic gastroparesis. 2. Acute kidney injury. 3. Hypokalemia. 4. Abnormal urinalysis with negative urine culture, contaminated. 5. History of esophagitis. 6. Anemia of chronic disease. 7. Hemodilutional anemia. 8. Hypomagnesemia. 9. Hypoalbuminemia. 10. Protein calorie malnutrition. 11. Hypoglycemia due to decreased oral intake. DISCHARGE MEDICATIONS: - Protonix 40 mg daily - Carafate 1 gram in the morning and at bedtime - Tramadol 50 mg every 4 hours as needed for abdominal pain - Reglan 10 mg in the morning and at bedtime - acetaminophen 650 mg by mouth three times a day - insulin sliding scale - multivitamin one tablet daily HOSPITAL COURSE: This is a 49-year-old -[place] female with history of type 1 diabetes, recurrent diabetic gastroparesis with recurrent intractable nausea and vomiting with abdominal pain admitted due to complaints of abdominal pain, abnormal urinalysis, treated initially for urinary tract infection, placed on intravenous (IV) ceftriaxone. Patient did not tolerate oral diet and was placed on IV fluids with improvement of the acute kidney injury she had on admission. Patient was placed on Reglan, Zofran, Phenergan during the hospital stay and agreed to have an EGD which was NORMAL. She had poor IV access and was sent for a PICC line. Patient was encouraged to continue with small frequent meals at home, to continue her proton pump inhibitor (PPI) Carafate and Protonix, outpatient followup with Dr. Gomez within a week of discharge. She had episodes of hypoglycemia, was treated according to hypoglycemic protocol, was kept on D5 half normal saline while she was nothing by mouth. PHYSICAL EXAMINATION ON DISCHARGE: Temperature 98.5, pulse 80, respiratory rate 17, blood pressure 118/74, 96% on room air. GENERAL: Awake, alert, oriented times three, answering questions appropriately. No cyanosis, icterus, jaundice or use of respiratory accessory muscles. HEENT: Normocephalic, atraumatic. Dry mucous membranes. NECK: Supple. Full range of motion. No cervical lymphadenopathy, stridor, carotid bruit or jugular venous distention (JVD). LUNGS: Clear to auscultation without wheezing, rales or rhonchi. HEART: S1, S2. Sinus rhythm. ABDOMEN: Soft, slightly tender in the epigastric and right upper quadrant. No rebound or guarding. No hepatosplenomegaly. EXTREMITIES: No cyanosis, clubbing of pitting edema. LABORATORY DATA: White count 4.8, hemoglobin 8.5, hematocrit 25.5, platelet count 237. Sodium 136, potassium 3.6, chloride 102, bicarbonate 25, BUN 4, creatinine 0.99, glucose 154, magnesium 1. A1C 8.4. IMAGING STUDIES: CT abdomen and pelvis 07/02/2020: Hepatic steatosis, small tubular fluid in the cul-de-sac, may be interposed loop of small bowel, consider pelvic ultrasound to exclude hydrosalpinx, 3.7 cm right ovarian cyst not significantly changed, mild pancreatic ductal dilatation without signs of pancreatitis or mass. TIME SPENT ON DISCHARGE: Thirty minutes. DISCHARGE INSTRUCTIONS: Patient is to follow up with Dr. Gomez within 7 days of hospital discharge, primary care physician within one week of discharge regarding episodes of hypoglycemia. She is to continue with a gastroparesis diet with small, frequent meals and continue on sliding scale at home. [facility]
[2020-07-06 14:00] VITALS: BP 116/74
[2020-07-06] MEDS ORDERED: fentaNYL 100 MCG/2 ML INJECTION (J3010) As Ordered ONE (18:43)
--- NOTE | 2020-07-06 19:26 | ROOR ---
Patient Name: Alivia Chest Procedure Date: 07/06/2020 10:42 AM Date of : 1970 Age: 49 Gender: Female Note Status: Finalized Procedure: Upper GI endoscopy Indications: Epigastric abdominal pain, Suspected gastroparesis. (possibly contributing: Cannabis Hyperemesis) Providers: Praveen GOMEZ MD Referring MD: 2. Inpatient 2. Inpatient, Abraham STANFORD MD Requesting Provider: Medicines: Monitored Anesthesia Care Complications: No immediate complications. Procedure: Pre-Anesthesia Assessment: - The heart rate, respiratory rate, oxygen saturations, blood pressure, adequacy of pulmonary ventilation, and response to care were monitored throughout the procedure. The Endoscope was introduced through the mouth, and advanced to the second part of duodenum. The upper GI endoscopy was accomplished without difficulty. The patient tolerated the procedure well. Findings: The esophagus was normal. The stomach was normal. (large volume) The examined duodenum was normal. Biopsies were taken with a cold forceps in the gastric antrum for Helicobacter pylori testing. Impression: - Normal esophagus. - Normal stomach. - Normal examined duodenum. - Biopsies were taken with a cold forceps for Helicobacter pylori testing. Recommendation: - Gastroparesis diet: - Eat smaller, more frequent meals throughout the day. - Low fat diet. - Liquid/soft foods are tolerated better than solid foods. - Low fiber/well cooked vegetables are tolerated better than high fiber/fibrous foods/raw vegetables. - Avoid medications that inhibit gastric/intestinal motility such as narcotic medications. - Follow up with PCP - Consider trial on Amitriptyline 10 - 20 mg po QHS for chronic neuropathic pain related to gastroparesis. - You do not need a routine follow up with me. Procedure Code(s): --- Professional --- 18395, Esophagogastroduodenoscopy, flexible, transoral; with biopsy, single or multiple Diagnosis Code(s): --- Professional --- R10.13, Epigastric pain CPT copyright 2019 [employer]. All rights reserved. The codes documented in this report are preliminary and upon associate professor of literacy review may be revised to meet current compliance requirements. Praveen Gomez MD Praveen GOMEZ MD 07/06/2020 7:26:20 PM Electronically signed by Praveen GOMEZ MD Number of Addenda: 0 Note Initiated On: 07/06/2020 10:42 AM Estimated Blood Loss: Estimated blood loss: none.
[2020-07-06 20:00] VITALS: BP 135/85
[2020-07-06] MEDS ORDERED: METOCLOPRAMIDE INJ 10MG/2ML VIAL (J2765 PER 1) IV PRN (21:00)
[2020-07-06] MEDS ORDERED: LR 1,000 ML IV SCH (21:00)
[2020-07-06] MEDS ORDERED: PROMETHAZINE INJ 25 MG/ML VIAL (J2550) IV PRN (21:00)
[2020-07-06] MEDS ORDERED: ONDANSETRON 4MG/2ML VIAL IV PRN (21:00)
== END 2020-07-06 20:50 | disposition home or self-care (01) | DRG 48 ==
LOC: M ED 00:04 → M ED INP 00:05 → ENRESERVDT 07:49 → ENRESERVTM 07:49 → M MSPAV 08:30 → OBSVTOIN 07-03 08:05
PROVIDERS: ADMIT Internal Medicine; ATTEND General Practice
PROC: 02HV33Z Insertion of Infusion Device into Superior Vena Cava, Percutaneous Approach (ICD-10-PCS; 2020-07-03)
PROC: 0DB78ZX Excision of Stomach, Pylorus, Via Natural or Artificial Opening Endoscopic, Diagnostic (ICD-10-PCS; principal; 2020-07-06 19:30)
DX: E10.43 Type 1 diabetes mellitus with diabetic autonomic (poly)neuropathy (principal); N17.9 Acute kidney failure, unspecified; E46 Unspecified protein-calorie malnutrition; E10.22 Type 1 diabetes mellitus with diabetic chronic kidney disease; E87.2 Acidosis; N18.30 Chronic kidney disease, stage 3 unspecified; E10.649 Type 1 diabetes mellitus with hypoglycemia without coma; E87.1 Hypo-osmolality and hyponatremia; E83.42 Hypomagnesemia; E88.09 Other disorders of plasma-protein metabolism, not elsewhere classified; K31.84 Gastroparesis; Z20.822 Contact with and (suspected) exposure to COVID-19; Z79.899 Other long term (current) drug therapy; Z79.4 Long term (current) use of insulin; Z87.891 Personal history of nicotine dependence

== ENCOUNTER 2020-09-27 11:38 | Emergency (ER) | payer OTHER ==
[~2020-09-27 11:38] MED LIST changes: +ALCOPAD25 TOP; +CARA1TAB6 PO; +GLUC1TES2 XX; +INSU1MIS20 SC; +LANC30MI XX; +LEVE1INJ5 SC; +MULTTAB86 PO; +PEN1MIS21 SC; +PROT1TAB2 PO; +QC A650T3 PO; +TRAM50TA2 PO
[2020-09-27] MEDS ORDERED: NS 1,000 ML IV ONE (13:00)
[2020-09-27 13:10] LABS: BASO # 0.1 10^3/uL (0.0-0.2); BASO % 0.5 % (0.0-1.0); EOS # 0.1 10^3/uL (0.0-0.5); EOS % 0.4 % (0.0-3.0); HEMATOCRIT 37.3 % (36.0-47.0); HEMOGLOBIN 12.4 g/dl (12.0-15.5); LYMPH # 1.5 10^3/uL (1.5-5.0); LYMPH % 11.4 % (24.0-44.0); MEAN CORPUSCULAR HEMOGLOBIN 28.9 pg (27.0-33.0); MEAN CORPUSCULAR HGB CONC 33.2 g/dl (32.0-36.5); MEAN CORPUSCULAR VOLUME 86.9 fl (80.0-96.0); MONO # 0.7 10^3/uL (0.0-0.8); MONO % 5.4 % (2.0-8.0); NEUTROPHILS # 10.7 10^3/uL (1.5-8.5); NEUTROPHILS % 81.8 % (36.0-66.0); PLATELET COUNT, AUTOMATED 424 10^3/uL (150-450); RED BLOOD COUNT 4.29 10^6/uL (4.00-5.40)
[2020-09-27 13:42] LABS: CALCIUM LEVEL 9.6 MG/DL (8.5-10.1); CREATININE FOR GFR 1.68 MG/DL (0.55-1.30); GLOMERULAR FILTRATION RATE 41.9 (>58); POTASSIUM SERUM 4.2 MEQ/L (3.5-5.1)
[2020-09-27] MEDS ORDERED: HumuLIN R (REGULAR) INSULIN (NovoLIN R) **100U/ML** PER UNIT SC ONE (14:15)
[2020-09-27 17:25] VITALS: BP 110/74
== END 2020-09-27 17:25 | disposition home or self-care (01) ==
LOC: M ED 11:38 → EDBD 11:38 → M ED 17:25
DX: E10.9 Type 1 diabetes mellitus without complications (principal); N18.30 Chronic kidney disease, stage 3 unspecified; K31.84 Gastroparesis; I10 Essential (primary) hypertension; E78.5 Hyperlipidemia, unspecified; J44.9 Chronic obstructive pulmonary disease, unspecified; F12.10 Cannabis abuse, uncomplicated; Z79.4 Long term (current) use of insulin

== ENCOUNTER 2020-10-13 08:54 | Inpatient (IN) | payer OTHER ==
[~2020-10-13] VITALS: Ht 170.2 cm; Wt 66.3 kg
[2020-10-13] MEDS: DOCUSATE SODIUM 100MG CAPSULE PO SCH ×2 (09:00→22:11)
[2020-10-13] MEDS ORDERED: ENOXAPARIN 40MG/0.4ML SYRINGE (J1650 PER 10MG) SC SCH (09:00)
[2020-10-13] MEDS ORDERED: NS 1,000 ML IV ONE ×2 (09:05)
[2020-10-13] MEDS ORDERED: ONDANSETRON 4MG/2ML VIAL IV ONE (09:35)
[2020-10-13 09:44] LABS: BASO # 0.1 10^3/uL (0.0-0.2); BASO % 0.3 % (0.0-1.0); HEMOGLOBIN 11.3 g/dl (12.0-15.5); LYMPH # 0.9 10^3/uL (1.5-5.0); MEAN CORPUSCULAR HGB CONC 33.2 g/dl (32.0-36.5); MEAN CORPUSCULAR VOLUME 87.4 fl (80.0-96.0); MONO # 0.3 10^3/uL (0.0-0.8); MONO % 2.2 % (2.0-8.0); NEUTROPHILS # 13.9 10^3/uL (1.5-8.5); NEUTROPHILS % 91.1 % (36.0-66.0); PLATELET COUNT, AUTOMATED 381 10^3/uL (150-450); RED BLOOD COUNT 3.89 10^6/uL (4.00-5.40); WHITE BLOOD COUNT 15.3 10^3/uL (4.0-10.0)
[2020-10-13 09:45] LABS: VENOUS BASE EXCESS -9.7 (-2.0-2.0); VENOUS HCO3 15.6 MEQ/L (23.0-27.0); VENOUS PARTIAL PRESSURE CO2 32.2 mmHg (38.0-50.0); VENOUS PARTIAL PRESSURE O2 42.3 mmHg (30.0-50.0); VENOUS PH 7.302 UNITS (7.330-7.430); VENOUS STANDARD HCO3 16.2 MEQ/L; VENOUS TOTAL CO2 16.5 MEQ/L (24.0-28.0)
[2020-10-13 10:09] LABS: OSMOLALITY SERUM 325 MOSM/KG (275-295)
[2020-10-13] MEDS ORDERED: INSULIN IV RATE CHANGE DOCUMENTATION ML/HR XX SCH ×2 (10:10→15:00)
[2020-10-13 10:11] LABS: ALBUMIN 4.8 GM/DL (3.2-5.2); ALT/SGPT 21 U/L (12-78); BILIRUBIN,DIRECT 0.3 MG/DL (0.0-0.2); LIPASE 73 U/L (73-393); TOTAL PROTEIN 8.3 GM/DL (6.4-8.2)
[2020-10-13 10:12] LABS: ACETONE/KETONE > 46.00 MG/DL (<2.81)
[2020-10-13] MEDS: INSULIN REGULAR IN 0.9 % NACL 100 UNIT in IV 1 EA IV SCH ×4 (10:35→15:01)
[2020-10-13 10:44] LABS: HEMOGLOBIN A1c 8.6 %
[2020-10-13 11:00] LABS: RSV AMPLIFICATION NEGATIVE (NEGATIVE)
[2020-10-13] MEDS ORDERED: NOVO1INJ18 SC (11:16)
[2020-10-13] MEDS ORDERED: BASA100I SC (11:16)
[2020-10-13] MEDS: ACETAMINOPHEN 500 MG TAB PO ONE (12:10)
[2020-10-13] MEDS ORDERED: MOM 30ML SUSPENSION UDC PO PRN (12:55)
[2020-10-13] MEDS ORDERED: ACETAMINOPHEN TAB 650MG DOSE (2X325MG) PO PRN (12:55)
[2020-10-13] MEDS ORDERED: MAALOX 30 ML SUSP *UDC PO PRN (12:55)
[2020-10-13 13:30] LABS: PHOSPHORUS LEVEL 5.4 MG/DL (2.5-4.9)
[2020-10-13] MEDS ORDERED: D5W 1,000 ML IV SCH (13:30)
[2020-10-13 14:13] LABS: ABG BASE EXCESS -3.5 (-2.0-2.0); ABG HCO3 20.6 MEQ/L (22.0-26.0); ABG O2 SATURATION 98.8 % (95.0-99.0); ABG PARTIAL PRESSURE CO2 33.7 mmHg (35.0-45.0); ABG PARTIAL PRESSURE O2 153.2 mmHg (75.0-100.0); ABG STANDARD HCO3 21.6 MEQ/L (22.0-26.0); ABG TOTAL CO2 21.7 MEQ/L (22.0-29.0); ABG pH (ARTERIAL) 7.405 UNITS (7.350-7.450)
[2020-10-13 14:17] LABS: CREATININE FOR GFR 1.73 MG/DL (0.55-1.30); GLOMERULAR FILTRATION RATE 40.5 (>58); POTASSIUM SERUM 3.2 MEQ/L (3.5-5.1)
[2020-10-13] MEDS ORDERED: INSULIN REGULAR IN 0.9 % NACL 100 UNIT in IV 1 EA IV SCH ×4 (14:45→15:00)
[2020-10-13 15:00] VITALS: BP 117/71
[2020-10-13] MEDS ORDERED: KCL 20MEQ IN 0.45NS 1000ML 1,000 ML IV SCH (15:00)
[2020-10-13] MEDS ORDERED: PROMETHAZINE INJ 25 MG/ML VIAL (J2550) IM ONE (15:10)
--- NOTE | 2020-10-13 15:49 | HPEPDOC ---
General Date of Admission Oct 13, 2020 at 11:53 Date of Service: Oct 13, 2020 Attending Physician: EDER GROVES MD Chief Complaint The patient is a 50-year-old female admitted with a reason for visit of Diabetic Ketoacidosis. Source: Patient History of Present Illness Ms. Cleveland is a pleasant 50 year old female who presented to the ED for 4 consecutive days of abdominal pain, vomiting, and elevated blood glucose measurements at home. Patient states that she has been vomiting since 10/10/20 and has not been able to eat anything except propel water and sugar free gatorade. She is a type 1 diabetic and states her at home blood glucose measurements have been averaging 400-500 since 10/10/20. Her blood glucose averages 130-140 normally. She was hospitalized 1 month ago at [facility] for diabetic ketoacidosis. Ms. Cleveland feels very fatigued and has a throbbing generalized headache that started two days ago. Ms. cleveland states that she is trying to be compliant with her medications at home. She was given 2L NS bolus and started on an IV drip in the ED and was then admitted to the ICU. PMHX: Type 1 diabetes mellitus with gastroparesis diagnosed in 2006 COPD CKD stage III Surgical history: D&C - 2003 Social history: Tobacco: quit in 2019 ETOH: patient denies Ilicit drugs: patient smokes marijuana occasionally Family history: Father: 69 years old and healthy Mother: 70 years old, has heart disease and diabetes Siblings: 3 brothers are healthy, 1 sister has hypertension Children: 2 sons and 2 daughters are healthy ALLERGIES: Please see below. Review of systems: Constitutional: Denies having fever, chills, night sweats. Admits to intense fatigue HEENT: denies blurry vision, double vision, or vision loss, difficulty swallowing, swollen lymph nodes. Admits to generalized headache Cardiovascular: Denies any chest pain or palpitations Respiratory: Denies shortness of breath, coughing, or wheezing Gastrointestinal: Denies constipation or diarrhea. Admits to abdominal pain, nausea, and vomiting Genitourinary: Denies dysuria, hematuria or hematochezia. Extremities: denies lower extremity edema or loss of sensation in extremities. Hematology/Oncology: Denies any easy bleeding or bruising. Physical examination: General: Patient is alert and oriented x3. She is laying on her left side in the hospital bed and appears uncomforable Eyes: Conjunctiva clear. PERRLA, EOMI. HEENT: Mucous membranes dry. Normocephalic, atraumatic. Trachea midline, no thyromegaly, or lymphadenopathy appreciated. Cardiovascular: Regular rate and rhythm. no murmurs or rubs are appreciated Respiratory: clear to auscultation bilaterally, equal inspiratory effort bilaterally, no wheezes or rhonchi noted Abdomen: Normal bowel sounds, patient tender to light touch in upper two quadrants, no organomegaly or masses appreciated Extremities:No appreciable edema in bilateral lower extremities Skin: No rashes or ulcerations present. No cyanosis. Imaging: No imaging Assessment: Ms. Cleveland is a 54 year old female presenting to the ED with a bdominal pain, 4 consecutive days of vomiting, and elevated blood glucose measurements (400-500) at home found to have a blood glucose of 504 and Beta hydroxybutyrate of >46 concerning for Diabetic Ketoacidosis. Plan: Diabetic Ketoacidosis -Anion Gap 19 in ED -B-hydroxybutyrate >46 -Initial blood glucose 509 -started insulin drip with bridge to D5W when blood glucose is 250 -repeat BMP and magnesium every 2 hours -blood glucose checks q 1 hour -started 40meq KCL D5W in 0.45NS at 150ml/hour -will switch to SQ insulin when anion gap closes and advance patient diet Nausea -patient has gastroparesis secondary to diabetes -patient given zofran in ED -ordered phenergan 25mg q 8 hours prn COPD -Patient does not follow with pulmonology -not on any home medications CKD stage III -Patient BUN 42, creatinine 1.60, GFR 44.4 -continue fluids, will dc after patient tolerates consistent carb diet. DVT prophylaxis: continue patient on lovenox GME ATTESTATION My faculty preceptor for this patient encounter was physically present during the encounter and was fully available. All aspects of the patient interview, examination, medical decision making process, and medical care plan development were reviewed and approved by the faculty preceptor. The faculty preceptor is aware and concurs with the plan as stated in the body of this note and will attest to such by his/her cosignature. Attending Attestation: I saw and evaluated patient. I agree with the findings and plan of care as documented in the residents note. Home Medications Scheduled Insulin Glargine,Hum.rec.anlog (Basaglar Kwikpen U-100) 100 Unit/1 Ml Insuln.pen, 5 UNIT SC DAILY, (Reported) Insulin NPH Hum/Reg Insulin Hm (Novolin 70-30 Flexpen) 100 Unit/1 Ml Insuln.pen, 1 DOSE SC AC, (Reported) PER SLIDING SCALE Allergies Coded Allergies: No Known Allergies (Verified , 11/30/19) A-FIB/CHADSVASC A-FIB History Current/History of A-Fib/PAF?: No Current PO Anticoag Therapy: No Vital Signs Vital Signs Date Time Temp Pulse Resp B/P (MAP) Pulse Ox O2 Delivery O2 Flow Rate FiO2 10/13/20 14:30 102 18 135/86 (102) 99 Room Air 10/13/20 08:55 97.7 Laboratory Data Labs 24H Laboratory Tests 2 10/13/20 09:12: Immature Granulocyte % (Auto) 0.4, Neutrophils (%) (Auto) 91.1H, Lymphocytes (%) (Auto) 6.0L, Monocytes (%) (Auto) 2.2, Eosinophils (%) (Auto) 0.0, Basophils (%) (Auto) 0.3, Neutrophils # (Auto) 13.9H, Lymphocytes # (Auto) 0.9L, Monocytes # (Auto) 0.3, Eosinophils # (Auto) 0.0, Basophils # (Auto) 0.1, Nucleated Red Blood Cells % (auto) 0.0, Blood Gas Bicarbonate Standard 16.2, Venous Blood pH 7.302L, Venous Blood Partial Pressure CO2 32.2L, Venous Blood Partial Pressure O2 42.3, Venous Blood Total Carbon Dioxide 16.5L, Venous Blood HCO3 15.6L, Venous Blood Oxygen Saturation 70.0, Venous Blood Base Excess -9.7L, Estimated Mean Plasma Glucose 200H, Hemoglobin A1c 8.6, Osmolality 325H, Phosphorus Level 5.4H, Total Bilirubin 1.0, Direct Bilirubin 0.3H, Aspartate Amino Transf (AST/SGOT) 20, Alanine Aminotransferase (ALT/SGPT) 21, Alkaline Phosphatase 75, Total Protein 8.3H, Albumin 4.8, Albumin/Globulin Ratio 1.4, Lipase 73, B- Hydroxybutyrate > 46.00H 10/13/20 09:27: POC Glucose (Misc Panel) 509*H, POC Sodium (Misc Panel) 136, POC Potassium (Misc Panel) 4.2, POC Chloride (Misc Panel) 99, POC Total CO2 (Misc Panel) 17.0L, POC Blood Urea Nitrogen (Misc Panel 45H, POC Ionized Calcium (Misc Panel) 4.4L, POC Creatinine (Misc Panel) 1.6H, POC Hematocrit (Misc Panel) 38.0 10/13/20 09:56: Coronavirus (COVID-19)(PCR) NEGATIVE, Influenza Type A (RT-PCR) NEGATIVE, Influenza Type B (RT-PCR) NEGATIVE, Respiratory Syncytial Virus (PCR) NEGATIVE 10/13/20 10:04: Urine Color YELLOW, Urine Appearance CLEAR, Urine pH 5.0, Urine Specific [place] 1.023, Urine Protein NEGATIVE, Urine Glucose (UA) 3+H, Urine Ketones 2+H, Urine Blood 3+H, Urine Nitrite NEGATIVE, Urine Bilirubin NEGATIVE, Urine Urobilinogen 0.2, Urine Leukocyte Esterase NEGATIVE, Urine WBC (Auto) 6H, Urine RBC (Auto) 44H, Urine Hyaline Casts (Auto) 0, Urine Bacteria (Auto) NEGATIVE, Urine Squamous Epithelial Cells 0, Urine Mucus (Auto) SMALL, Urine Sperm (Auto) 10/13/20 10:28: Bedside Glucose (Misc Panel) 504*H 10/13/20 11:18: Bedside Glucose (Misc Panel) 398H 10/13/20 12:15: Bedside Glucose (Misc Panel) 301H 10/13/20 13:17: Bedside Glucose (Misc Panel) 230H 10/13/20 13:43: Anion Gap 19H, Glomerular Filtration Rate 40.5L, Calcium Level 9.0 10/13/20 14:01: Blood Gas Bicarbonate Standard 21.6L, Arterial Blood pH 7.405, Arterial Blood Partial Pressure CO2 33.7L, Arterial Blood Partial Pressure O2 153.2H, Arterial Blood Total CO2 21.7L, Arterial Blood HCO3 20.6L, Arterial Blood Base Excess - 3.5L, Arterial Blood Oxygen Saturation 98.8 10/13/20 14:24: Bedside Glucose (Misc Panel) 130H 10/13/20 15:24: Bedside Glucose (Misc Panel) 132H 10/13/20 15:26: CBC/BMP Laboratory Tests 10/13/20 09:12 10/13/20 13:43 Plan / VTE VTE Prophylaxis Ordered?: Yes VIANCA LOWE DO Oct 13, 2020 15:49 EDER GROVES MD Oct 14, 2020 13:57
[2020-10-13] MEDS ORDERED: KCL 40MEQ IN D5/0.45NS 1000ML 1,000 ML IV SCH (15:50)
[2020-10-13 16:00] VITALS: BP 115/65
[2020-10-13] MEDS ORDERED: POTASSIUM CHL PWD 20 MEQ PACKET PO ONE (16:00)
[2020-10-13] MEDS ORDERED: KCL 10MEQ/100ML SWI (KRUN) 10 MEQ in IV 1 EA IV SCH (16:00)
[2020-10-13] MEDS: INSULIN IV RATE CHANGE DOCUMENTATION ML/HR XX SCH ×2 (16:05→16:06)
[2020-10-13] MEDS: PROMETHAZINE INJ 25 MG/ML VIAL (J2550) IV PRN (16:19)
[2020-10-13] MEDS: PANTOPRAZOLE 40MG VIAL (C9113 PER 1) IV SCH (16:20)
[2020-10-13 16:24] LABS: ACETONE/KETONE 14.46 MG/DL (<2.81); CALCIUM LEVEL 8.8 MG/DL (8.5-10.1); CREATININE FOR GFR 1.6 MG/DL (0.55-1.30); GLOMERULAR FILTRATION RATE 44.4 (>58); MAGNESIUM LEVEL 2.2 MG/DL (1.8-2.4); POTASSIUM SERUM 3.8 MEQ/L (3.5-5.1)
[2020-10-13] MEDS ORDERED: GLUCAGON INJ 1MG VIAL SC PRN (16:55)
[2020-10-13] MEDS ORDERED: GLUCOSE 4GM CHEW TABLET PO PRN (16:55)
[2020-10-13] MEDS ORDERED: LEVEMIR (INSULIN DETEMIR) 1 UNITS/0.01ML SC ONE (16:55)
[2020-10-13] MEDS ORDERED: DEXTROSE 50% 50 ML SYRINGE IV PRN (16:55)
[2020-10-13 17:00] VITALS: BP 125/72
[2020-10-13] MEDS: HumaLOG INSULIN (NovoLOG) PER UNIT SC SCH ×2 (17:30→21:00)
[2020-10-13 18:50] LABS: ACETONE/KETONE 15.34 MG/DL (<2.81); CALCIUM LEVEL 8.7 MG/DL (8.5-10.1); CREATININE FOR GFR 1.52 MG/DL (0.55-1.30); GLOMERULAR FILTRATION RATE 47.1 (>58); POTASSIUM SERUM 3.8 MEQ/L (3.5-5.1)
[2020-10-13 20:00] VITALS: BP 145/75
[2020-10-13 20:32] LABS: CALCIUM LEVEL 8.5 MG/DL (8.5-10.1); CREATININE FOR GFR 1.44 MG/DL (0.55-1.30); GLOMERULAR FILTRATION RATE 50.1 (>58); POTASSIUM SERUM 3.8 MEQ/L (3.5-5.1)
[2020-10-13 22:00] VITALS: BP 105/65
[2020-10-13 23:19] LABS: CALCIUM LEVEL 8.5 MG/DL (8.5-10.1); CREATININE FOR GFR 1.37 MG/DL (0.55-1.30); GLOMERULAR FILTRATION RATE 53.1 (>58); POTASSIUM SERUM 4.3 MEQ/L (3.5-5.1)
[2020-10-14] VITALS: BP 106/61
[2020-10-14 04:00] VITALS: BP 124/82
[2020-10-14] MEDS: PROMETHAZINE INJ 25 MG/ML VIAL (J2550) IV PRN (04:13)
[2020-10-14 05:46] LABS: ABG BASE EXCESS -3.1 (-2.0-2.0); ABG HCO3 21.3 MEQ/L (22.0-26.0); ABG O2 SATURATION 97.3 % (95.0-99.0); ABG PARTIAL PRESSURE CO2 35.4 mmHg (35.0-45.0); ABG PARTIAL PRESSURE O2 101.3 mmHg (75.0-100.0); ABG STANDARD HCO3 21.9 MEQ/L (22.0-26.0); ABG TOTAL CO2 22.4 MEQ/L (22.0-29.0); ABG pH (ARTERIAL) 7.397 UNITS (7.350-7.450)
[2020-10-14 07:28] LABS: BASO # 0.1 10^3/uL (0.0-0.2); BASO % 0.7 % (0.0-1.0); EOS % 0.3 % (0.0-3.0); HEMATOCRIT 27.5 % (36.0-47.0); LYMPH # 1.3 10^3/uL (1.5-5.0); LYMPH % 17.5 % (24.0-44.0); MEAN CORPUSCULAR HEMOGLOBIN 28.9 pg (27.0-33.0); MEAN CORPUSCULAR HGB CONC 33.1 g/dl (32.0-36.5); MEAN CORPUSCULAR VOLUME 87.3 fl (80.0-96.0); MONO # 0.5 10^3/uL (0.0-0.8); MONO % 6.9 % (2.0-8.0); NEUTROPHILS # 5.7 10^3/uL (1.5-8.5); NEUTROPHILS % 74.3 % (36.0-66.0); PLATELET COUNT, AUTOMATED 303 10^3/uL (150-450); RED BLOOD COUNT 3.15 10^6/uL (4.00-5.40); WHITE BLOOD COUNT 7.7 10^3/uL (4.0-10.0)
[2020-10-14 07:30] VITALS: BP 110/80
[2020-10-14] MEDS: HumaLOG INSULIN (NovoLOG) PER UNIT SC SCH ×4 (07:30→19:56)
[2020-10-14 07:36] LABS: HEMOGLOBIN 9.1 g/dl (12.0-15.5)
[2020-10-14 07:39] LABS: CALCIUM LEVEL 8.7 MG/DL (8.5-10.1); CREATININE FOR GFR 1.25 MG/DL (0.55-1.30); MAGNESIUM LEVEL 2.1 MG/DL (1.8-2.4); POTASSIUM SERUM 3.7 MEQ/L (3.5-5.1)
[2020-10-14] MEDS: PANTOPRAZOLE 40MG VIAL (C9113 PER 1) IV SCH (08:09)
[2020-10-14] MEDS: DOCUSATE SODIUM 100MG CAPSULE PO SCH ×2 (08:11→19:57)
[2020-10-14] MEDS ORDERED: ENOXAPARIN 30MG/0.3ML SYRINGE (J1650 PER 10MG) SC SCH (09:00)
[2020-10-14] MEDS ORDERED: ENOXAPARIN 40MG/0.4ML SYRINGE (J1650 PER 10MG) SC SCH (09:00)
--- NOTE | 2020-10-14 11:04 | IPNPDOC ---
Text Note Date of Service The patient was seen on 10/14/20. NOTE Subjective: Patient stated examined at bedside. No acute overnight events reported. Patient complains of general malaise this morning. Objective: General: NAD, lying comfortably in bed HEENT: NC/AT, EOMI Lungs: CTA B/L HEart: +S1S2, RRR Abd: soft, NT, +BS Ext: no edema Neuro: no focal deficits Psych: AAOx3 A/P: 50 year old female with PMHx of DM1 and multiple hospital visits for uncontrolled hyperglycemia, retuns to the ED for abdominal pain, 4 consecutive days of vomiting, and elevated blood glucose measurements (400-500), admitted for DKA. #DKA - resolved - tolerating diet - continue insulin therapy and carb consistent diet #COPD -Patient does not follow with pulmonology -not on any home medications #CKD stage III Disposition: pending clinical improvement VS,Fishbone, I+O VS, Fishbone, I+O Laboratory Tests 10/13/20 13:43 10/13/20 15:26 10/13/20 18:07 10/13/20 20:03 10/13/20 22:38 10/14/20 07:05 Vital Signs Date Time Temp Pulse Resp B/P (MAP) Pulse Ox O2 Delivery O2 Flow Rate FiO2 10/14/20 07:30 98.8 95 18 110/80 (90) 100 Room Air I&O- Last 24 Hours up to 6 AM 10/14/20 06:00 Intake Total 2421.8 ml Output Total 500 ml Balance 1921.8 ml EDER GROVES MD Oct 14, 2020 11:04
[2020-10-14 11:08] VITALS: BP 111/68
[2020-10-14] MEDS: LEVEMIR (INSULIN DETEMIR) 1 UNITS/0.01ML SC SCH (12:58)
[2020-10-14 13:17] LABS: HEMATOCRIT 29.6 % (36.0-47.0); HEMOGLOBIN 9.7 g/dl (12.0-15.5); MEAN CORPUSCULAR HEMOGLOBIN 28.7 pg (27.0-33.0); MEAN CORPUSCULAR HGB CONC 32.8 g/dl (32.0-36.5); MEAN CORPUSCULAR VOLUME 87.6 fl (80.0-96.0); PLATELET COUNT, AUTOMATED 309 10^3/uL (150-450); RED BLOOD COUNT 3.38 10^6/uL (4.00-5.40); WHITE BLOOD COUNT 8.4 10^3/uL (4.0-10.0)
[2020-10-14 13:40] LABS: ALBUMIN 3.6 GM/DL (3.2-5.2); BILIRUBIN,TOTAL 0.8 MG/DL (0.2-1.0); CALCIUM LEVEL 8.8 MG/DL (8.5-10.1); CREATININE FOR GFR 1.35 MG/DL (0.55-1.30); POTASSIUM SERUM 3.7 MEQ/L (3.5-5.1); TOTAL PROTEIN 6.9 GM/DL (6.4-8.2)
[2020-10-14 15:50] VITALS: BP 124/84
[2020-10-14 20:00] VITALS: BP 138/80
[2020-10-15] VITALS (7 sets, daily range): BP systolic 105–139; BP diastolic 57–89
[2020-10-15 06:13] LABS: BASO % 0.7 % (0.0-1.0); EOS # 0.1 10^3/uL (0.0-0.5); EOS % 1.9 % (0.0-3.0); HEMOGLOBIN 9.1 g/dl (12.0-15.5); LYMPH # 2.7 10^3/uL (1.5-5.0); LYMPH % 46.5 % (24.0-44.0); MEAN CORPUSCULAR HEMOGLOBIN 28.7 pg (27.0-33.0); MEAN CORPUSCULAR HGB CONC 33.7 g/dl (32.0-36.5); MEAN CORPUSCULAR VOLUME 85.2 fl (80.0-96.0); MONO # 0.4 10^3/uL (0.0-0.8); MONO % 7.4 % (2.0-8.0); NEUTROPHILS # 2.5 10^3/uL (1.5-8.5); NEUTROPHILS % 43.3 % (36.0-66.0); PLATELET COUNT, AUTOMATED 274 10^3/uL (150-450); RED BLOOD COUNT 3.17 10^6/uL (4.00-5.40); WHITE BLOOD COUNT 5.7 10^3/uL (4.0-10.0)
[2020-10-15 06:36] LABS: BLOOD UREA NITROGEN 22 MG/DL (7-18); CALCIUM LEVEL 8.9 MG/DL (8.5-10.1); CARBON DIOXIDE LEVEL 26 MEQ/L (21-32); CHLORIDE LEVEL 105 MEQ/L (98-107); CREATININE FOR GFR 1.18 MG/DL (0.55-1.30); GLOMERULAR FILTRATION RATE > 60.0 (>58); GLUCOSE, FASTING 187 MG/DL (70-100); POTASSIUM SERUM 3.5 MEQ/L (3.5-5.1); SODIUM LEVEL 139 MEQ/L (136-145)
[2020-10-15] MEDS: HumaLOG INSULIN (NovoLOG) PER UNIT SC SCH ×4 (07:44→20:35)
[2020-10-15] MEDS: LEVEMIR (INSULIN DETEMIR) 1 UNITS/0.01ML SC SCH (09:00)
[2020-10-15] MEDS: PANTOPRAZOLE 40MG VIAL (C9113 PER 1) IV SCH (09:00)
[2020-10-15] MEDS: DOCUSATE SODIUM 100MG CAPSULE PO SCH ×2 (09:00→20:34)
--- NOTE | 2020-10-15 11:02 | REP ---
INDICATION: abd pain COMPARISON: 07/02/2020 TECHNIQUE: Axial noncontrast images from the lung bases to the pubic symphysis with coronal and sagittal reformations. This CT examination was performed using the following dose reduction techniques: Automated exposure control, adjustment of mA and/or kv according to the patient's size, and use of iterative reconstruction technique. FINDINGS: Lung bases are clear. Visualized heart and pericardium normal. Liver, spleen, pancreas, gallbladder, bilateral adrenal glands and kidneys are normal. The enteric system is unremarkable and without obstruction or acute inflammatory process. Normal terminal ileum and appendix identified in the right lower quadrant. Pelvis demonstrates normal bladder and age-appropriate uterus/adnexa. Previously noted right ovarian cyst appears to be resolving. No ascites. No free air. No adenopathy. No focal inflammatory stranding. Abdominal aorta without aneurysm. Musculoskeletal structures are intact and without acute osseous abnormality. IMPRESSION: No acute abdominopelvic pathology appreciated. <Electronically signed by Zhang Benitez > 10/15/20 [id number]
[2020-10-15] MEDS: PROMETHAZINE INJ 25 MG/ML VIAL (J2550) IV PRN (14:20)
[2020-10-15 16:53] LABS: BASO # 0.1 10^3/uL (0.0-0.2); BASO % 0.9 % (0.0-1.0); EOS % 0.5 % (0.0-3.0); HEMATOCRIT 30.9 % (36.0-47.0); HEMOGLOBIN 10.2 g/dl (12.0-15.5); LYMPH % 16.9 % (24.0-44.0); MEAN CORPUSCULAR VOLUME 87.8 fl (80.0-96.0); MONO # 0.3 10^3/uL (0.0-0.8); MONO % 5.3 % (2.0-8.0); NEUTROPHILS # 4.3 10^3/uL (1.5-8.5); PLATELET COUNT, AUTOMATED 276 10^3/uL (150-450); RED BLOOD COUNT 3.52 10^6/uL (4.00-5.40); WHITE BLOOD COUNT 5.7 10^3/uL (4.0-10.0)
--- NOTE | 2020-10-15 17:06 | IPNPDOC ---
Text Note Date of Service The patient was seen on 10/15/20. NOTE Subjective: Patient stated examined at bedside. No acute overnight events reported. Patient complains of general malaise this morning. Later in day worsening abdominal pain with nausea. She did have a bowel movement this afternoon. No diarrhea or other medical complaints. Objective: General: NAD, lying comfortably in bed HEENT: NC/AT, EOMI Lungs: CTA B/L HEart: +S1S2, RRR Abd: soft, NT, +BS Ext: no edema Neuro: no focal deficits Psych: AAOx3 A/P: 50 year old female with PMHx of DM1 and multiple hospital visits for uncontrolled hyperglycemia, retuns to the ED for abdominal pain, 4 consecutive days of vomiting, and elevated blood glucose measurements (400-500), admitted for DKA. #DKA - resolved #abdominal pain - CT non-contrast abd/pelvis no acute pathology - repeat labs unremarkable thus far - surgical consultation pending - assistance appreciated #COPD -Patient does not follow with pulmonology -not on any home medications #CKD stage III Disposition: pending clinical improvement VS,[place], I+O VS, Onesimobone, I+O Laboratory Tests 10/15/20 05:45 10/15/20 16:40 Vital Signs Date Time Temp Pulse Resp B/P (MAP) Pulse Ox O2 Delivery O2 Flow Rate FiO2 10/15/20 14:00 98.1 96 19 122/70 (87) 97 Room Air I&O- Last 24 Hours up to 6 AM 10/15/20 06:00 Intake Total 540 ml Output Total 250 ml Balance 290 ml EDER GROVES MD Oct 15, 2020 17:06
[2020-10-15 17:18] LABS: ALBUMIN 3.6 GM/DL (3.2-5.2); ALT/SGPT 25 U/L (12-78); BILIRUBIN,TOTAL 0.9 MG/DL (0.2-1.0); BLOOD UREA NITROGEN 20 MG/DL (7-18); CALCIUM LEVEL 9.3 MG/DL (8.5-10.1); CARBON DIOXIDE LEVEL 20 MEQ/L (21-32); CHLORIDE LEVEL 101 MEQ/L (98-107); CREATININE FOR GFR 1.15 MG/DL (0.55-1.30); GLOMERULAR FILTRATION RATE > 60.0 (>58); GLUCOSE, FASTING 360 MG/DL (70-100); POTASSIUM SERUM 4.2 MEQ/L (3.5-5.1); SODIUM LEVEL 137 MEQ/L (136-145); TOTAL PROTEIN 6.9 GM/DL (6.4-8.2)
[2020-10-15 17:58] LABS: LIPASE 92 U/L (73-393)
[2020-10-15] MEDS ORDERED: SLF 3 ML SYR IV PRN (18:15)
[2020-10-15] MEDS: SLF 3 ML SYR IV SCH (23:14)
[2020-10-16] VITALS: BP 125/66
[2020-10-16 04:00] VITALS: BP 140/93
[2020-10-16] MEDS: PROMETHAZINE INJ 25 MG/ML VIAL (J2550) IV PRN (04:01)
[2020-10-16 06:02] LABS: BASO % 0.8 % (0.0-1.0); EOS # 0.1 10^3/uL (0.0-0.5); EOS % 1.3 % (0.0-3.0); HEMATOCRIT 29.4 % (36.0-47.0); LYMPH # 1.3 10^3/uL (1.5-5.0); LYMPH % 24.6 % (24.0-44.0); MEAN CORPUSCULAR HEMOGLOBIN 29.1 pg (27.0-33.0); MEAN CORPUSCULAR VOLUME 85.5 fl (80.0-96.0); MONO # 0.4 10^3/uL (0.0-0.8); MONO % 7.1 % (2.0-8.0); NEUTROPHILS # 3.5 10^3/uL (1.5-8.5); PLATELET COUNT, AUTOMATED 291 10^3/uL (150-450); RED BLOOD COUNT 3.44 10^6/uL (4.00-5.40); WHITE BLOOD COUNT 5.3 10^3/uL (4.0-10.0)
[2020-10-16] MEDS: SLF 3 ML SYR IV SCH ×3 (06:16→20:17)
[2020-10-16 06:30] LABS: CALCIUM LEVEL 9.1 MG/DL (8.5-10.1); CREATININE FOR GFR 1.25 MG/DL (0.55-1.30); MAGNESIUM LEVEL 1.8 MG/DL (1.8-2.4); POTASSIUM SERUM 3.8 MEQ/L (3.5-5.1)
[2020-10-16 08:00] VITALS: BP 98/58
[2020-10-16] MEDS: PANTOPRAZOLE 40MG VIAL (C9113 PER 1) IV SCH (09:00)
[2020-10-16] MEDS: DOCUSATE SODIUM 100MG CAPSULE PO SCH ×2 (09:00→20:34)
[2020-10-16] MEDS: LEVEMIR (INSULIN DETEMIR) 1 UNITS/0.01ML SC SCH (09:23)
[2020-10-16] MEDS: HumaLOG INSULIN (NovoLOG) PER UNIT SC SCH ×4 (09:24→20:51)
[2020-10-16] MEDS ORDERED: SODIUM CHLORIDE 0.9% 1000ML IV ONE (18:00)
[2020-10-16] MEDS ORDERED: MORPHINE 2 MG/ML 1ML VIAL (J2270) IV ONE (18:15)
--- NOTE | 2020-10-16 18:26 | IPNPDOC ---
Subjective Date Seen The patient was seen on 10/16/20. Subjective Chief Complaint/HPI Ms. Parks is a 50 year old female with DM type 1 who was initially here DKA, but then had abdominal pain. This morning, her main concern was her right leg. She reports having sharp shooting pains down her right leg that started overnight. Reports right leg paresthesias, but denies any fecal or urinary incontinence. She is able to make it to the restroom without problem. Otherwise, later in the afternoon, reported abdominal pain again and has not eaten due to the pain. Will repeat CT with IV contrast. She may have abdominal angina. Objective Physical Examination General Exam: Positive: Alert, Cooperative Eye Exam: Negative: Sclera icteric Neck Exam: Positive: Supple Chest Exam: Positive: Clear to auscultation Heart Exam: Positive: Tachycardic, Regular Rhythm Abdomen Exam: Positive: Soft, Tenderness Extremity Exam: Negative: Edema Neuro Exam: Positive: Normal Speech Psych Exam: Positive: Anxiety Assessment /Plan Assessment Ms. Parks is a 50 year old female with DM type 1 who was initially here DKA, but then had abdominal pain and neuropathic pain in her right leg. Denies fecal or urinary incontinence, but has paresthesias. Will order MRI of LS spine. Otherwise, continues to have abdominal pain and has not been able to eat. Continue IV Protonix. Will switch to clear liquid diet and add Carafate. Will order CT abd/pelvis with IV contrast and start patient on IVF to protect kidneys Plan/VTE VTE Prophylaxis Ordered?: Yes Plan 1. DKA in the setting of type 1 diabetes -DKA resolved -Continue basal bolus insulin 2. Abdominal pain -Possible abdominal angina. May want to consider chronic pancreatitis? -CT abdominal pelvis with IV contrast -Continue IV Protonix -Clear liquid diet, Carafate, and IVF 3. Right leg neuropathic pain -Denies fecal/urinary incontinence -Will order MRI LS spine 4. CKD stage III -Started IVF -Monitor renal function 5. DVT ppx -SCD and TEDs Disposition: Pending clinical improvement and improvement in appetite. VS, I&O, 24H, Fishbone Vital Signs/I&O Vital Signs Date Time Temp Pulse Resp B/P (MAP) Pulse Ox O2 Delivery O2 Flow Rate FiO2 10/16/20 08:00 98.1 92 17 98/58 (71) 99 Room Air I&O- Last 24 Hours up to 6 AM 10/16/20 06:00 Intake Total 240 ml Output Total 700 ml Balance -460 ml Laboratory Data 24H LABS Laboratory Tests 2 10/16/20 05:50: Immature Granulocyte % (Auto) 0.2, Neutrophils (%) (Auto) 66.0, Lymphocytes (%) (Auto) 24.6, Monocytes (%) (Auto) 7.1, Eosinophils (%) (Auto) 1.3, Basophils (%) (Auto) 0.8, Neutrophils # (Auto) 3.5, Lymphocytes # (Auto) 1.3L, Monocytes # (Auto) 0.4, Eosinophils # (Auto) 0.1, Basophils # (Auto) 0.0, Nucleated Red Blood Cells % (auto) 0.0, Anion Gap 14, Glomerular Filtration Rate 59.0, Calcium Level 9.1, Magnesium Level 1.8 10/16/20 16:53: Bedside Glucose (Misc Panel) 56L CBC/BMP Laboratory Tests 10/16/20 05:50 ATILIO SALAZAR DO Oct 16, 2020 18:26
[2020-10-16] MEDS: NS 1,000 ML IV SCH (18:54)
[2020-10-16] MEDS ORDERED: ISOVUE-370 76% 100ML VIAL As Ordered ONE (18:54)
[2020-10-16] MEDS: SUCRALFATE SUSP 1GM/10ML UD PO SCH ×2 (18:55→20:34)
[2020-10-16 20:00] VITALS: BP 131/81
--- NOTE | 2020-10-16 20:49 | REPVR ---
PROCEDURE INFORMATION: Exam: CTA Abdomen and Pelvis With Contrast Exam date and time: 10/16/2020 7:08 PM Age: 50 years old Clinical indication: Other: Abdominal pain out of proportion, anorexia TECHNIQUE: Imaging protocol: Computed tomographic angiography of the abdomen and pelvis with contrast material. 3D rendering (Not supervised by radiologist): MIP and/or 3D reconstructed images were created by the technologist. Radiation optimization: All CT scans at this facility use at least one of these dose optimization techniques: automated exposure control; mA and/or kV adjustment per patient size (includes targeted exams where dose is matched to clinical indication); or iterative reconstruction. Contrast material: ISOVUE 370; Contrast volume: 100 ml; Contrast route: INTRAVENOUS (IV); COMPARISON: CT ABD PELVIS W/O CONTRAST 10/15/2020 10:19 AM FINDINGS: Aorta: There is no evidence of an abdominal aortic aneurysm or dissection. Celiac trunk and mesenteric arteries: No occlusion or significant stenosis. Renal arteries: No occlusion or significant stenosis. Right iliac arteries: No occlusion or significant stenosis. Left iliac arteries: No occlusion or significant stenosis. Liver: There is a diffuse decrease in hepatic parenchymal density, consistent with fatty infiltration. There are no focal liver lesions present. Gallbladder and bile ducts: The gallbladder is normal. Pancreas: There is pancreatic ductal dilatation. The pancreatic duct measures 3.5 mm. No peripancreatic edema. No pancreatic mass identified. Spleen: The spleen is normal. The spleen is normal. Adrenal glands: The adrenal glands are normal. Kidneys and ureters: There is no evidence of hydronephrosis. The kidneys are normal. Stomach and bowel: There is mural thickening involving the distal stomach. Correlate with clinical information regarding gastritis. There is apparent mural thickening involving the distal ascending, transverse and descending colon, possibly due to nondistention, but correlate with clinical information regarding colitis. Appendix: A normal appendix is identified. Intraperitoneal space: Unremarkable. No free air. No significant fluid collection. Lymph nodes: Unremarkable. No enlarged lymph nodes. Urinary bladder: The bladder is normal. Reproductive: Unremarkable as visualized. Bones/joints: No acute fracture. No dislocation. IMPRESSION: 1. Hepatic steatosis. 2. Mural thickening involving the distal stomach. Correlate with clinical information regarding gastritis. 3. Question colitis, as above. 4. No abdominal aortic aneurysm or dissection. Electronically signed by: Kelli Winkler On 10/16/2020 20:48:53 PM
[2020-10-17 00:23] VITALS: BP 122/75
[2020-10-17] MEDS ORDERED: IBUPROFEN 400MG TAB PO ONE (01:40)
[2020-10-17 04:28] VITALS: BP 153/93
[2020-10-17] MEDS ORDERED: KETOROLAC TROMETHAMINE 10 MG TAB PO ONE (04:50)
[2020-10-17] MEDS ORDERED: KETOROLAC 30 MG/ML 1ML VIAL IV ONE (05:50)
[2020-10-17 06:11] LABS: HEMATOCRIT 26.1 % (36.0-47.0); HEMOGLOBIN 8.8 g/dl (12.0-15.5); MEAN CORPUSCULAR HGB CONC 33.7 g/dl (32.0-36.5); MEAN CORPUSCULAR VOLUME 86.1 fl (80.0-96.0); PLATELET COUNT, AUTOMATED 275 10^3/uL (150-450); RED BLOOD COUNT 3.03 10^6/uL (4.00-5.40); WHITE BLOOD COUNT 6.5 10^3/uL (4.0-10.0)
[2020-10-17] MEDS: SLF 3 ML SYR IV SCH ×3 (06:11→22:00)
[2020-10-17 06:33] LABS: BLOOD UREA NITROGEN 22 MG/DL (7-18); CALCIUM LEVEL 8.4 MG/DL (8.5-10.1); CARBON DIOXIDE LEVEL 22 MEQ/L (21-32); CHLORIDE LEVEL 105 MEQ/L (98-107); CREATININE FOR GFR 1.08 MG/DL (0.55-1.30); GLOMERULAR FILTRATION RATE > 60.0 (>58); GLUCOSE, FASTING 104 MG/DL (70-100); LIPASE 39 U/L (73-393); POTASSIUM SERUM 3.6 MEQ/L (3.5-5.1); SODIUM LEVEL 138 MEQ/L (136-145)
[2020-10-17] MEDS: HumaLOG INSULIN (NovoLOG) PER UNIT SC SCH ×4 (07:30→21:00)
[2020-10-17 08:00] VITALS: BP 130/83
[2020-10-17] MEDS: NS 1,000 ML IV SCH ×2 (08:10→20:05)
[2020-10-17] MEDS: DOCUSATE SODIUM 100MG CAPSULE PO SCH ×2 (08:10→21:08)
[2020-10-17] MEDS: PANTOPRAZOLE 40MG VIAL (C9113 PER 1) IV SCH (08:10)
[2020-10-17] MEDS: LEVEMIR (INSULIN DETEMIR) 1 UNITS/0.01ML SC SCH (08:10)
[2020-10-17] MEDS: SUCRALFATE SUSP 1GM/10ML UD PO SCH ×2 (08:10→12:00)
[2020-10-17] MEDS ORDERED: LORazepam 0.5 MG TAB PO PRN (08:15)
[2020-10-17 12:00] VITALS: BP 130/62
[2020-10-17 13:08] LABS: HEMATOCRIT 27.6 % (36.0-47.0); MEAN CORPUSCULAR HEMOGLOBIN 28.3 pg (27.0-33.0); MEAN CORPUSCULAR HGB CONC 32.6 g/dl (32.0-36.5); MEAN CORPUSCULAR VOLUME 86.8 fl (80.0-96.0); PLATELET COUNT, AUTOMATED 285 10^3/uL (150-450); RED BLOOD COUNT 3.18 10^6/uL (4.00-5.40); WHITE BLOOD COUNT 7.3 10^3/uL (4.0-10.0)
[2020-10-17 13:38] LABS: ERYTHROCYTE SEDIMENTATION RATE 32 mm/hr (0-20)
--- NOTE | 2020-10-17 14:04 | IPNPDOC ---
Subjective Date Seen The patient was seen on 10/17/20. Subjective Chief Complaint/HPI Ms. Parks is a 50 year old female with DM type 1 who was initially here DKA, but then had abdominal pain. Last night, attempted to obtain MRI LS spine, but she became anxious and vomited. Patient was taken back. This morning, abdominal pain was better with Toradol. Denies chest pain. Still has pain down right leg. Will try again with lorazepam to help with anxiety. Objective Physical Examination General Exam: Positive: Alert, Cooperative Eye Exam: Negative: Sclera icteric Neck Exam: Positive: Supple Chest Exam: Positive: Clear to auscultation Heart Exam: Positive: Tachycardic, Regular Rhythm Abdomen Exam: Positive: Soft, Tenderness Extremity Exam: Negative: Edema Neuro Exam: Positive: Normal Speech Psych Exam: Positive: Anxiety Assessment /Plan Assessment Ms. Parks is a 50 year old female with DM type 1 who was initially here DKA, but then had abdominal pain and neuropathic pain in her right leg. Denies fecal or urinary incontinence, but has paresthesias. Will order MRI of LS spine. Otherwise, continues to have abdominal pain and has not been able to eat. Continue IV Protonix. Will switch to clear liquid diet. Patient vomited the Carafate, will discontinue. CT abd/pelvis with IV contrast demonstrate gastritis and possible colitis. Will continue to encourage protonix. Continue with clear liquid diet. Pending MRI of LS spine. Plan/VTE VTE Prophylaxis Ordered?: Yes Plan 1. DKA in the setting of type 1 diabetes -DKA resolved -Continue basal bolus insulin 2. Abdominal pain -CT abdominal pelvis with IV contrast demonstrated gastritis and possible colitis -Continue IV Protonix -Clear liquid diet and IVF 3. Right leg neuropathic pain -Denies fecal/urinary incontinence -Will order MRI LS spine 4. CKD stage III -Started IVF -Monitor renal function 5. DVT ppx -SCD and TEDs Disposition: Pending clinical improvement and improvement in appetite. VS, I&O, 24H, Fishbone Vital Signs/I&O Vital Signs Date Time Temp Pulse Resp B/P (MAP) Pulse Ox O2 Delivery O2 Flow Rate FiO2 10/17/20 08:00 99.1 89 8 130/83 (99) 100 Room Air I&O- Last 24 Hours up to 6 AM 10/17/20 06:00 Intake Total 300 ml Output Total 700 ml Balance -400 ml Laboratory Data 24H LABS Laboratory Tests 2 10/16/20 16:53: Bedside Glucose (Misc Panel) 56L 10/16/20 20:32: Bedside Glucose (Misc Panel) 88 10/17/20 05:35: Nucleated Red Blood Cells % (auto) 0.0, Anion Gap 11, Glomerular Filtration Rate > 60.0, Calcium Level 8.4L, Lipase 39L 10/17/20 12:22: Bedside Glucose (Misc Panel) 282H 10/17/20 12:50: Nucleated Red Blood Cells % (auto) 0.0, Erythrocyte Sedimentation Rate 32H, C- Reactive Protein, Quantitative 2.10H CBC/BMP Laboratory Tests 10/17/20 05:35 10/17/20 12:50 ATILIO SALAZAR DO Oct 17, 2020 14:04
[2020-10-17 16:00] VITALS: BP 118/72
[2020-10-17 20:00] VITALS: BP 144/89
[2020-10-17] MEDS: KETOROLAC 30 MG/ML 1ML VIAL IV PRN (21:08)
[2020-10-17] MEDS ORDERED: D5W/0.9% SODIUM CHLORIDE 1,000 ML IV SCH (21:40)
[2020-10-18 04:00] VITALS: BP 132/63
[2020-10-18] MEDS: SLF 3 ML SYR IV SCH ×3 (05:12→22:28)
[2020-10-18 05:51] LABS: HEMATOCRIT 24.5 % (36.0-47.0); HEMOGLOBIN 8.4 g/dl (12.0-15.5); MEAN CORPUSCULAR HEMOGLOBIN 29.6 pg (27.0-33.0); MEAN CORPUSCULAR HGB CONC 34.3 g/dl (32.0-36.5); MEAN CORPUSCULAR VOLUME 86.3 fl (80.0-96.0); PLATELET COUNT, AUTOMATED 264 10^3/uL (150-450); RED BLOOD COUNT 2.84 10^6/uL (4.00-5.40); WHITE BLOOD COUNT 6.4 10^3/uL (4.0-10.0)
[2020-10-18 06:15] LABS: BLOOD UREA NITROGEN 16 MG/DL (7-18); CALCIUM LEVEL 8.5 MG/DL (8.5-10.1); CARBON DIOXIDE LEVEL 15 MEQ/L (21-32); CHLORIDE LEVEL 102 MEQ/L (98-107); CREATININE FOR GFR 1.09 MG/DL (0.55-1.30); GLOMERULAR FILTRATION RATE > 60.0 (>58); GLUCOSE, FASTING 364 MG/DL (70-100); POTASSIUM SERUM 3.8 MEQ/L (3.5-5.1); SODIUM LEVEL 134 MEQ/L (136-145)
[2020-10-18] MEDS: LEVEMIR (INSULIN DETEMIR) 1 UNITS/0.01ML SC SCH (07:26)
[2020-10-18] MEDS: HumaLOG INSULIN (NovoLOG) PER UNIT SC SCH ×4 (07:26→20:19)
[2020-10-18] MEDS: PANTOPRAZOLE 40MG VIAL (C9113 PER 1) IV SCH (07:27)
[2020-10-18] MEDS: DOCUSATE SODIUM 100MG CAPSULE PO SCH ×2 (09:00→21:07)
--- NOTE | 2020-10-18 12:09 | IPNPDOC ---
Subjective Date Seen The patient was seen on 10/18/20. Subjective Chief Complaint/HPI Ms. Parks is a 50 year old female with DM type 1 who was initially here DKA, but then had abdominal pain. Overnight, she was hypoglycemic at 59, but responded to D5W/NS. This morning, she has high anion gap metabolic acidosis, which may be from missed insulin from yesterday evening's hypoglycemia. Patient received insulin this morning. Holding D5W/NS and rechecking BMP for resolution for high anion gap metabolic acidosis. Objective Physical Examination General Exam: Positive: Alert, Cooperative Eye Exam: Negative: Sclera icteric Neck Exam: Positive: Supple Chest Exam: Positive: Clear to auscultation Heart Exam: Positive: Tachycardic, Regular Rhythm Abdomen Exam: Positive: Soft, Tenderness Extremity Exam: Negative: Edema Neuro Exam: Positive: Normal Speech Psych Exam: Positive: Anxiety Assessment /Plan Assessment Ms. Parks is a 50 year old female with DM type 1 who was initially here DKA, but then had abdominal pain and neuropathic pain in her right leg. Denies fecal or urinary incontinence, but has paresthesias. Will order MRI of LS spine. Otherwise, continues to have abdominal pain and has not been able to eat. Continue IV Protonix. Will switch to clear liquid diet. Patient vomited the Carafate, will discontinue. CT abd/pelvis with IV contrast demonstrate gastritis and possible colitis. Will continue to encourage Protonix. Continue with clear liquid diet. Plan/VTE VTE Prophylaxis Ordered?: Yes Plan 1. DKA in the setting of type 1 diabetes -Continue basal bolus insulin -Monitor BMP for anion gap metabolic acidosis 2. Abdominal pain -CT abdominal pelvis with IV contrast demonstrated gastritis and possible colitis -Continue IV Protonix -Clear liquid diet and IVF 3. Right leg neuropathic pain -Denies fecal/urinary incontinence -Due to nausea and abdominal pain, was not able to tolerate MRI. 4. CKD stage III -Started IVF -Monitor renal function 5. DVT ppx -SCD and TEDs Disposition: Pending clinical improvement and improvement in appetite. VS, I&O, 24H, Fishbone Vital Signs/I&O Vital Signs Date Time Temp Pulse Resp B/P (MAP) Pulse Ox O2 Delivery O2 Flow Rate FiO2 10/18/20 04:00 98.6 94 18 132/63 (86) 100 Room Air I&O- Last 24 Hours up to 6 AM 10/18/20 06:00 Intake Total 2326 ml Output Total 1350 ml Balance 976 ml Laboratory Data 24H LABS Laboratory Tests 2 10/17/20 12:22: Bedside Glucose (Misc Panel) 282H 10/17/20 12:50: Nucleated Red Blood Cells % (auto) 0.0, Erythrocyte Sedimentation Rate 32H, C-Reactive Protein, Quantitative 2.10H 10/17/20 17:21: Bedside Glucose (Misc Panel) 144H 10/17/20 21:04: Bedside Glucose (Misc Panel) 59L 10/17/20 21:27: Bedside Glucose (Misc Panel) 71 10/18/20 00:33: Bedside Glucose (Misc Panel) 181H 10/18/20 05:38: Nucleated Red Blood Cells % (auto) 0.0, Anion Gap 17H, Glomerular Filtration Rate > 60.0, Calcium Level 8.5 CBC/BMP Laboratory Tests 10/17/20 12:50 10/18/20 05:38 ATILIO SALAZAR DO Oct 18, 2020 12:09
[2020-10-18] MEDS ORDERED: NS 1,000 ML IV SCH (12:10)
[2020-10-18] MEDS: KETOROLAC 30 MG/ML 1ML VIAL IV PRN (12:38)
[2020-10-18 12:50] VITALS: BP 134/77
[2020-10-18 13:25] LABS: BLOOD UREA NITROGEN 16 MG/DL (7-18); CALCIUM LEVEL 8.2 MG/DL (8.5-10.1); CARBON DIOXIDE LEVEL 21 MEQ/L (21-32); CHLORIDE LEVEL 107 MEQ/L (98-107); CREATININE FOR GFR 1.11 MG/DL (0.55-1.30); GLOMERULAR FILTRATION RATE > 60.0 (>58); GLUCOSE, FASTING 183 MG/DL (70-100); POTASSIUM SERUM 3.5 MEQ/L (3.5-5.1); SODIUM LEVEL 137 MEQ/L (136-145)
[2020-10-18 14:00] VITALS: BP 133/78
[2020-10-18] MEDS ORDERED: MORPHINE 2 MG/ML 1ML VIAL (J2270) IV ONE (14:00)
[2020-10-18] MEDS ORDERED: GI COCKTAIL 50ML BTL(HYOSCYAMINE/MAALOX/LIDOCAINE VISCOUS)(1:3:1) PO ONE (15:00)
[2020-10-18] MEDS ORDERED: D5W/0.9% SODIUM CHLORIDE 1,000 ML IV SCH (19:05)
[2020-10-18 19:49] VITALS: BP 133/80
[2020-10-19] MEDS: SLF 3 ML SYR IV SCH ×3 (04:39→20:18)
[2020-10-19] MEDS: KETOROLAC 30 MG/ML 1ML VIAL IV PRN ×2 (04:59→22:19)
[2020-10-19 06:00] VITALS: BP 134/84
[2020-10-19 06:34] LABS: HEMATOCRIT 24.3 % (36.0-47.0); HEMOGLOBIN 8.2 g/dl (12.0-15.5); MEAN CORPUSCULAR HEMOGLOBIN 29.1 pg (27.0-33.0); MEAN CORPUSCULAR HGB CONC 33.7 g/dl (32.0-36.5); MEAN CORPUSCULAR VOLUME 86.2 fl (80.0-96.0); PLATELET COUNT, AUTOMATED 264 10^3/uL (150-450); RED BLOOD COUNT 2.82 10^6/uL (4.00-5.40); WHITE BLOOD COUNT 4.3 10^3/uL (4.0-10.0)
[2020-10-19 07:02] LABS: BLOOD UREA NITROGEN 11 MG/DL (7-18); CALCIUM LEVEL 8.4 MG/DL (8.5-10.1); CARBON DIOXIDE LEVEL 22 MEQ/L (21-32); CHLORIDE LEVEL 103 MEQ/L (98-107); GLOMERULAR FILTRATION RATE > 60.0 (>58); GLUCOSE, FASTING 236 MG/DL (70-100); POTASSIUM SERUM 3.4 MEQ/L (3.5-5.1); SODIUM LEVEL 136 MEQ/L (136-145)
[2020-10-19] MEDS ORDERED: POTASSIUM CHLORIDE 10 MEQ SR TABLET PO ONE (07:45)
[2020-10-19] MEDS: PANTOPRAZOLE 40MG VIAL (C9113 PER 1) IV SCH ×2 (08:03→21:03)
[2020-10-19] MEDS: DOCUSATE SODIUM 100MG CAPSULE PO SCH ×2 (08:03→21:03)
[2020-10-19] MEDS: HumaLOG INSULIN (NovoLOG) PER UNIT SC SCH ×4 (08:05→21:00)
[2020-10-19] MEDS: LEVEMIR (INSULIN DETEMIR) 1 UNITS/0.01ML SC SCH (08:05)
[2020-10-19] MEDS ORDERED: KCL 10MEQ/100ML SWI (KRUN) 10 MEQ in IV 1 EA IV SCH (09:00)
[2020-10-19] MEDS ORDERED: MORPHINE 2 MG/ML 1ML VIAL (J2270) IV ONE (09:00)
[2020-10-19] MEDS: KCL 40MEQ in NS 1000ML 1,000 ML IV SCH ×3 (11:51→20:18)
[2020-10-19 14:00] VITALS: BP 134/81
--- NOTE | 2020-10-19 17:54 | IPNPDOC ---
Subjective Date Seen The patient was seen on 10/19/20. Subjective Chief Complaint/HPI Ms. Parks is a 50 year old female with DM type 1 who was initially here DKA, but then had abdominal pain. She is motivated to try to eat today. She wants to go home since her child is ill. She was able to tolerate a full liquid diet, but only a few bits. Will try solid diet. Otherwise, she is willing to try sucralfate again. Objective Physical Examination General Exam: Positive: Alert, Cooperative Eye Exam: Negative: Sclera icteric Neck Exam: Positive: Supple Chest Exam: Positive: Clear to auscultation Heart Exam: Positive: Tachycardic, Regular Rhythm Abdomen Exam: Positive: Soft Extremity Exam: Negative: Edema Neuro Exam: Positive: Normal Speech Psych Exam: Positive: Anxiety Assessment /Plan Assessment Ms. Parks is a 50 year old female with DM type 1 who was initially here DKA, but then had abdominal pain and neuropathic pain in her right leg. Denies fecal or urinary incontinence, but has paresthesias. She could not tolerate MRI LS spine due to abdominal pain and nausea. Otherwise, CT abd/pelvis with IV contrast demonstrate gastritis and possible colitis. Protonix was increased to twice a day. She is willing to try sucralfate. Plan/VTE VTE Prophylaxis Ordered?: Yes Plan 1. DKA in the setting of type 1 diabetes -She will need to be able to eat so we may give insulin. If she does not receive insulin, she may go back into DKA. -Continue basal bolus insulin -Monitor BMP for anion gap metabolic acidosis 2. Abdominal pain -CT abdominal pelvis with IV contrast demonstrated gastritis and possible colitis -Continue IV Protonix BID -Adding sucralfate -Attempting solid diet 3. Right leg neuropathic pain -Denies fecal/urinary incontinence -Due to nausea and abdominal pain, was not able to tolerate MRI. 4. CKD stage III -Started IVF -Monitor renal function 5. DVT ppx -SCD and TEDs Disposition: Pending clinical improvement and improvement in appetite. VS, I&O, 24H, Fishbone Vital Signs/I&O Vital Signs Date Time Temp Pulse Resp B/P (MAP) Pulse Ox O2 Delivery O2 Flow Rate FiO2 10/19/20 14:00 97.9 87 18 134/81 (98) 100 Room Air I&O- Last 24 Hours up to 6 AM 10/19/20 06:00 Intake Total 1320 ml Output Total 0 ml Balance 1320 ml Laboratory Data 24H LABS Laboratory Tests 2 10/18/20 18:15: Bedside Glucose (Misc Panel) 58L 10/18/20 18:41: Bedside Glucose (Misc Panel) 78 10/18/20 19:58: Bedside Glucose (Misc Panel) 73 10/19/20 00:45: Bedside Glucose (Misc Panel) 101 10/19/20 05:58: Sickle Cell Screen NEGATIVE 10/19/20 06:01: Nucleated Red Blood Cells % (auto) 0.0, Anion Gap 11, Glomerular Filtration Rate > 60.0, Calcium Level 8.4L 10/19/20 11:39: Bedside Glucose (Misc Panel) 164H 10/19/20 16:23: Bedside Glucose (Misc Panel) 54L CBC/BMP Laboratory Tests 10/19/20 06:01 ATILIO SALAZAR DO Oct 19, 2020 17:53
[2020-10-19] MEDS: SUCRALFATE SUSP 1GM/10ML UD PO SCH ×2 (18:16→21:03)
[2020-10-19 21:00] VITALS: BP 148/80
[2020-10-19 21:39] LABS: BLOOD UREA NITROGEN 7 MG/DL (7-18); CALCIUM LEVEL 8.3 MG/DL (8.5-10.1); CARBON DIOXIDE LEVEL 21 MEQ/L (21-32); CHLORIDE LEVEL 107 MEQ/L (98-107); GLOMERULAR FILTRATION RATE > 60.0 (>58); GLUCOSE, FASTING 100 MG/DL (70-100); POTASSIUM SERUM 3.9 MEQ/L (3.5-5.1); SODIUM LEVEL 136 MEQ/L (136-145)
[2020-10-20] MEDS: DICYCLOMINE 10 MG CAP PO ONE ×2 (00:31→00:33)
[2020-10-20] MEDS: SLF 3 ML SYR IV SCH ×3 (03:26→22:00)
[2020-10-20] MEDS: KCL 40MEQ in NS 1000ML 1,000 ML IV SCH (03:54)
[2020-10-20 06:00] VITALS: BP 134/88
[2020-10-20 06:38] LABS: HEMATOCRIT 25.5 % (36.0-47.0); HEMOGLOBIN 8.6 g/dl (12.0-15.5); MEAN CORPUSCULAR HGB CONC 33.7 g/dl (32.0-36.5); MEAN CORPUSCULAR VOLUME 85.9 fl (80.0-96.0); PLATELET COUNT, AUTOMATED 214 10^3/uL (150-450); RED BLOOD COUNT 2.97 10^6/uL (4.00-5.40); WHITE BLOOD COUNT 4.9 10^3/uL (4.0-10.0)
[2020-10-20 06:52] LABS: BLOOD UREA NITROGEN 6 MG/DL (7-18); CALCIUM LEVEL 8.1 MG/DL (8.5-10.1); CARBON DIOXIDE LEVEL 23 MEQ/L (21-32); CHLORIDE LEVEL 108 MEQ/L (98-107); CREATININE FOR GFR 0.82 MG/DL (0.55-1.30); GLOMERULAR FILTRATION RATE > 60.0 (>58); GLUCOSE, FASTING 111 MG/DL (70-100); POTASSIUM SERUM 4.3 MEQ/L (3.5-5.1); SODIUM LEVEL 138 MEQ/L (136-145)
[2020-10-20] MEDS: SUCRALFATE SUSP 1GM/10ML UD PO SCH ×4 (07:30→22:15)
[2020-10-20] MEDS: HumaLOG INSULIN (NovoLOG) PER UNIT SC SCH ×4 (07:30→22:16)
[2020-10-20] MEDS: DOCUSATE SODIUM 100MG CAPSULE PO SCH ×2 (08:27→22:16)
[2020-10-20] MEDS: LEVEMIR (INSULIN DETEMIR) 1 UNITS/0.01ML SC SCH (08:37)
[2020-10-20] MEDS: PANTOPRAZOLE 40MG VIAL (C9113 PER 1) IV SCH ×2 (08:37→22:16)
[2020-10-20] MEDS: KETOROLAC 30 MG/ML 1ML VIAL IV PRN (10:37)
[2020-10-20] MEDS: D5W/0.45% SODIUM CHLORIDE 1,000 ML IV SCH ×2 (10:37→21:30)
[2020-10-20] MEDS ORDERED: MORPHINE 2 MG/ML 1ML VIAL (J2270) IV ONE ×2 (11:15→15:20)
[2020-10-20 14:00] VITALS: BP 116/69
--- NOTE | 2020-10-20 16:39 | IPNPDOC ---
Subjective Date Seen The patient was seen on 10/20/20. Subjective Chief Complaint/HPI Ms. Parks is a 50 year old female with DM type 1 who was initially here DKA, but then had abdominal pain. Today, her pain returned and she did not want to try to eat. She was switched to IVF fluid with D5W included so she may receive insulin. Denies chest pain or dyspnea. I looked back in her records and she recently had an EGD by Dr. Gomez on 07/06/20. Recommended trial of amitriptyline which she has not yet tried. Will try amitriptyline today. Objective Physical Examination General Exam: Positive: Alert, Cooperative Eye Exam: Negative: Sclera icteric Neck Exam: Positive: Supple Chest Exam: Positive: Clear to auscultation Heart Exam: Positive: Tachycardic, Regular Rhythm Abdomen Exam: Positive: Soft Extremity Exam: Negative: Edema Neuro Exam: Positive: Normal Speech Psych Exam: Positive: Anxiety Assessment /Plan Assessment Ms. Parks is a 50 year old female with DM type 1 who was initially here DKA, but then had abdominal pain and neuropathic pain in her right leg. Denies fecal or urinary incontinence, but has paresthesias. She could not tolerate MRI LS spine due to abdominal pain and nausea. Otherwise, CT abd/pelvis with IV contrast demonstrate gastritis and possible colitis. Patient was put on IV Protonix BID and Carafate. Will do a trial of amitriptyline. If it does not help, then may need to reconsult GI for colonoscopy. Plan/VTE VTE Prophylaxis Ordered?: Yes Plan 1. DKA in the setting of type 1 diabetes -She will need to be able to eat so we may give insulin. If she does not receive insulin, she may go back into DKA. -Continue basal bolus insulin -Monitor BMP for anion gap metabolic acidosis -Will restart D5W with fluids to keep glucose up so insulin may be given. Will need to monitor potassium 2. Abdominal pain -CT abdominal pelvis with IV contrast demonstrated gastritis and possible colit is -Continue IV Protonix BID and sucralfate -Return to clear liquid diet -Trial of amitriptyline 3. Right leg neuropathic pain -Denies fecal/urinary incontinence -Due to nausea and abdominal pain, was not able to tolerate MRI. 4. CKD stage III -Continue IVF -Monitor renal function 5. DVT ppx -SCD and TEDs Disposition: Pending clinical improvement and improvement in appetite. Will do a trial of amitriptyline VS, I&O, 24H, Fishbone Vital Signs/I&O Vital Signs Date Time Temp Pulse Resp B/P (MAP) Pulse Ox O2 Delivery O2 Flow Rate FiO2 10/20/20 15:44 18 10/20/20 14:00 98.9 89 116/69 (85) 100 Room Air I&O- Last 24 Hours up to 6 AM 10/20/20 06:00 Intake Total 1680 ml Output Total 0 ml Balance 1680 ml Laboratory Data 24H LABS Laboratory Tests 2 10/19/20 17:51: Bedside Glucose (Misc Panel) 47L 10/19/20 18:49: Bedside Glucose (Misc Panel) 89 10/19/20 20:52: Anion Gap 8, Glomerular Filtration Rate > 60.0, Calcium Level 8.3L 10/19/20 23:43: Bedside Glucose (Misc Panel) 114H 10/20/20 06:26: Nucleated Red Blood Cells % (auto) 0.0, Anion Gap 7L, Glomerular Filtration Rate > 60.0, Calcium Level 8.1L 10/20/20 11:59: Bedside Glucose (Misc Panel) 208H CBC/BMP Laboratory Tests 10/19/20 20:52 10/20/20 06:26 ATILIO SALAZAR DO Oct 20, 2020 16:39
[2020-10-20 19:19] LABS: BLOOD UREA NITROGEN 5 MG/DL (7-18); CALCIUM LEVEL 8.7 MG/DL (8.5-10.1); CARBON DIOXIDE LEVEL 24 MEQ/L (21-32); CHLORIDE LEVEL 104 MEQ/L (98-107); CREATININE FOR GFR 0.92 MG/DL (0.55-1.30); GLOMERULAR FILTRATION RATE > 60.0 (>58); GLUCOSE, FASTING 81 MG/DL (70-100); POTASSIUM SERUM 4.1 MEQ/L (3.5-5.1); SODIUM LEVEL 137 MEQ/L (136-145)
[2020-10-20] MEDS ORDERED: AMITRIPTYLINE 10MG TABLET PO SCH (21:00)
[2020-10-20 22:00] VITALS: BP 138/72
[2020-10-21] MEDS: D5W/0.45% SODIUM CHLORIDE 1,000 ML IV SCH (04:49)
[2020-10-21 06:00] VITALS: BP 156/88
[2020-10-21 07:06] LABS: BLOOD UREA NITROGEN 4 MG/DL (7-18); CALCIUM LEVEL 8.8 MG/DL (8.5-10.1); CARBON DIOXIDE LEVEL 22 MEQ/L (21-32); CHLORIDE LEVEL 102 MEQ/L (98-107); CREATININE FOR GFR 0.85 MG/DL (0.55-1.30); GLOMERULAR FILTRATION RATE > 60.0 (>58); GLUCOSE, FASTING 212 MG/DL (70-100); POTASSIUM SERUM 4.2 MEQ/L (3.5-5.1); SODIUM LEVEL 134 MEQ/L (136-145)
[2020-10-21] MEDS: SUCRALFATE SUSP 1GM/10ML UD PO SCH ×2 (07:30→11:50)
[2020-10-21 07:46] LABS: HEMATOCRIT 25.3 % (36.0-47.0); HEMOGLOBIN 8.7 g/dl (12.0-15.5); MEAN CORPUSCULAR HEMOGLOBIN 28.8 pg (27.0-33.0); MEAN CORPUSCULAR HGB CONC 34.4 g/dl (32.0-36.5); MEAN CORPUSCULAR VOLUME 83.8 fl (80.0-96.0); PLATELET COUNT, AUTOMATED 248 10^3/uL (150-450); RED BLOOD COUNT 3.02 10^6/uL (4.00-5.40); WHITE BLOOD COUNT 4.1 10^3/uL (4.0-10.0)
[2020-10-21] MEDS: DOCUSATE SODIUM 100MG CAPSULE PO SCH (08:01)
[2020-10-21] MEDS: PANTOPRAZOLE 40MG VIAL (C9113 PER 1) IV SCH (08:08)
[2020-10-21] MEDS: HumaLOG INSULIN (NovoLOG) PER UNIT SC SCH ×2 (08:08→12:28)
[2020-10-21] MEDS: LEVEMIR (INSULIN DETEMIR) 1 UNITS/0.01ML SC SCH (08:08)
[2020-10-21] MEDS ORDERED: AMIT10TA7 PO (13:54)
[2020-10-21 14:00] VITALS: BP 134/87
--- NOTE | 2020-10-21 18:02 | DS.PDOC ---
Discharge Summary General Date of Admission Oct 13, 2020 at 11:53 Date of Discharge Oct 21, 2020 Discharge Summary PROCEDURES PERFORMED DURING STAY: None ADMITTING DIAGNOSES: 1. Diabetic ketoacidosis 2. COPD 3. CKD stage III 4. Diabetic gastroparesis DISCHARGE DIAGNOSES: 1. Diabetic ketoacidosis 2. COPD 3. CKD stage III 4. Diabetic gastroparesis COMPLICATIONS/CHIEF COMPLAINT: Diabetic Ketoacidosis. HISTORY OF PRESENT ILLNESS: Copied from admitting provider's H&P " Ms. Cleveland is a pleasant 50 year old female who presented to the ED for 4 consecutive days of abdominal pain, vomiting, and elevated blood glucose measurements at home. Patient states that she has been vomiting since 10/10/20 and has not been able to eat anything except propel water and sugar free gatorade. She is a type 1 diabetic and states her at home blood glucose measurements have been averaging 400-500 since 10/10/20. Her blood glucose averages 130-140 normally. She was hospitalized 1 month ago at [facility] for diabetic keto acidosis. Ms. Cleveland feels very fatigued and has a throbbing generalized headache that started two days ago. Ms. cleveland states that she is trying to be compliant with her medications at home. She was given 2L NS bolus and started on an IV drip in the ED and was then admitted to the ICU. " HOSPITAL COURSE: Patient's DKA rapidly resolved and patient was started on a diet. Afterwards, she started to complain about abdominal pain which had caused her to stop eating. When she tried to eat, she would become nauseas and vomit. When she stops eating, we can't give her insulin, and she starts to develop anion gap metabolic acidosis. IVF included D5W so we may be able to give insulin. IV Protonix was increased to BID. Carafate was added, but she did not tolerated Carafate. Patient wanted to be discharged home soon, because her son was sick. Looking through the chart, she had an EGD by Dr. Gomez on 07/06/20 which was a normal EGD. Recommended that patient start a gastroparesis diet and recommended trying amitriptyline for chronic neuropathic pain related to gastroparesis. Neither her nor her father had never heard of amitriptyline and was willing to try. The following day, her abdominal pain and nausea was improved. She tolerated a diet (she ate hungarian fries and peaches). She felt ready for home and was discharged home. DISCHARGE MEDICATIONS: Please see below. ALLERGIES: Please see below. PHYSICAL EXAMINATION ON DISCHARGE: VITAL SIGNS: Please see below. PHYSICAL EXAM: GENERAL: Comfortable, in no apparent distress. HEENT: Head normocephalic/atraumatic, EOMI, sclera clear. NECK: Supple. RESPIRATORY: Lungs clear to auscultation bilaterally, no rales, wheeze or rhonchi. CARDIOVASCULAR: Regular rate and rhythm. ABDOMEN: Soft. Normal bowel sounds. PSYCHOLOGICAL: Normal mood and affect LABORATORY DATA: Please see below. IMAGING: Radiologist interpretation CT angio abdomen/pelvis 1. Hepatic steatosis. 2. Mural thickening involving the distal stomach. Correlate with clinical information regarding gastritis. 3. Question colitis, as above. 4. No abdominal aortic aneurysm or dissection. PROGNOSIS: Good ACTIVITY: As tolerated. DIET: Carbohydrate consistent diet and Gastroparesis diet DISCHARGE PLAN: Home DISPOSITION: 01 Home, Self-Care. DISCHARGE INSTRUCTIONS: 1. Follow up with PCP within 1 week 2. Continue taking amitriptyline ITEMS TO FOLLOWUP ON ON OUTPATIENT: 1. May benefit from seeing GI outpatient for gastroparesis 2. Insulin compliance DISCHARGE CONDITION: Stable Total time spent on discharge planning, discharge summary, and medication reconciliation: 55 minutes Vital Signs/I&Os Vital Signs Date Time Temp Pulse Resp B/P (MAP) Pulse Ox O2 Delivery O2 Flow Rate FiO2 10/21/20 14:00 97.4 101 18 134/87 (103) 100 Room Air I&O- Last 24 Hours up to 6 AM 10/21/20 06:00 Intake Total 1050 ml Output Total 50 ml Balance 1000 ml Laboratory Data Labs 24H Laboratory Tests 2 10/20/20 18:32: Anion Gap 9, Glomerular Filtration Rate > 60.0, Calcium Level 8.7 10/20/20 22:13: Bedside Glucose (Misc Panel) 118H 10/21/20 06:07: Anion Gap 10, Glomerular Filtration Rate > 60.0, Calcium Level 8.8 10/21/20 07:35: Nucleated Red Blood Cells % (auto) 0.0 10/21/20 11:16: Bedside Glucose (Misc Panel) 149H CBC/BMP Laboratory Tests 10/20/20 18:32 10/21/20 06:07 10/21/20 07:35 FSBS Laboratory Tests Test 10/20/20 22:13 10/21/20 11:16 Range/Units Bedside Glucose (Misc Panel) 118 149 70-105 MG/DL Discharge Medications Scheduled Amitriptyline HCl (Amitriptyline HCl) 10 Mg Tablet, 20 MG PO QHS Insulin Glargine,Hum.rec.anlog (Basaglar Kwikpen U-100) 100 Unit/1 Ml Insuln.pen, 5 UNIT SC DAILY, (Reported) Insulin NPH Hum/Reg Insulin Hm (Novolin 70-30 Flexpen) 100 Unit/1 Ml Insuln.pen, 1 DOSE SC AC, (Reported) PER SLIDING SCALE Allergies Coded Allergies: No Known Allergies (Verified , 11/30/19) ATILIO SALAZAR DO Oct 21, 2020 18:02
== END 2020-10-21 14:35 | disposition home or self-care (01) | DRG 420 ==
LOC: M ED 08:54 → M ED INP 11:53 → ENRESERV 12:35 → M ICU 15:14 → M PCU 10-14 04:02 → M MS5PR 10-18 12:51
PROVIDERS: ADMIT Internal Medicine; ATTEND Internal Medicine
DX: E10.10 Type 1 diabetes mellitus with ketoacidosis without coma (principal); E10.649 Type 1 diabetes mellitus with hypoglycemia without coma; E10.22 Type 1 diabetes mellitus with diabetic chronic kidney disease; K31.84 Gastroparesis; E10.42 Type 1 diabetes mellitus with diabetic polyneuropathy; N18.30 Chronic kidney disease, stage 3 unspecified; E10.43 Type 1 diabetes mellitus with diabetic autonomic (poly)neuropathy; E10.65 Type 1 diabetes mellitus with hyperglycemia; J44.9 Chronic obstructive pulmonary disease, unspecified; Z87.891 Personal history of nicotine dependence; Z79.4 Long term (current) use of insulin; Z20.822 Contact with and (suspected) exposure to COVID-19

== ENCOUNTER 2020-10-23 02:49 | Inpatient (IN) | payer OTHER ==
[~2020-10-23] VITALS: Ht 170.2 cm; Wt 68.0 kg
[~2020-10-23 02:49] MED LIST changes: +AMIT10TA7 PO; +NOVO1INJ18 SC
[2020-10-23] MEDS ORDERED: NS 1,000 ML IV ONE ×4 (03:35→21:25)
[2020-10-23 04:36] LABS: BASO % 0.5 % (0.0-1.0); EOS # 0.1 10^3/uL (0.0-0.5); HEMATOCRIT 31.1 % (36.0-47.0); HEMOGLOBIN 10.6 g/dl (12.0-15.5); LYMPH # 0.9 10^3/uL (1.5-5.0); LYMPH % 11.2 % (24.0-44.0); MEAN CORPUSCULAR HGB CONC 34.1 g/dl (32.0-36.5); MEAN CORPUSCULAR VOLUME 85.2 fl (80.0-96.0); MONO # 0.5 10^3/uL (0.0-0.8); MONO % 5.7 % (2.0-8.0); NEUTROPHILS # 6.5 10^3/uL (1.5-8.5); NEUTROPHILS % 81.4 % (36.0-66.0); PLATELET COUNT, AUTOMATED 331 10^3/uL (150-450); RED BLOOD COUNT 3.65 10^6/uL (4.00-5.40); VENOUS BASE EXCESS -3.2 (-2.0-2.0); VENOUS HCO3 21.8 MEQ/L (23.0-27.0); VENOUS O2 SATURATION 55.4 % (60.0-80.0); VENOUS PARTIAL PRESSURE O2 31.6 mmHg (30.0-50.0); VENOUS PH 7.365 UNITS (7.330-7.430)
[2020-10-23 04:58] LABS: OSMOLALITY SERUM 292 MOSM/KG (275-295)
[2020-10-23 05:20] LABS: ACETONE/KETONE > 46.00 MG/DL (<2.81); ALBUMIN 4.1 GM/DL (3.2-5.2); ALT/SGPT 18 U/L (12-78); BILIRUBIN,DIRECT 0.1 MG/DL (0.0-0.2); BILIRUBIN,TOTAL 0.7 MG/DL (0.2-1.0); CK-MB VALUE MASS < 1.0 NG/ML (<3.6); CPK CREATINE PHOSPHOKINASE 69 U/L (26-192); LIPASE 37 U/L (73-393); MB/CK RELATIVE INDEX 1.45 (< OR =4); TOTAL PROTEIN 7.2 GM/DL (6.4-8.2); TROPONIN I < 0.02 NG/ML (< 0.10)
[2020-10-23 08:49] LABS: BLOOD UREA NITROGEN 10 MG/DL (7-18); CALCIUM LEVEL 9.3 MG/DL (8.5-10.1); CARBON DIOXIDE LEVEL 18 MEQ/L (21-32); CHLORIDE LEVEL 97 MEQ/L (98-107); CREATININE FOR GFR 1.24 MG/DL (0.55-1.30); GLOMERULAR FILTRATION RATE 59.5 (>58); GLUCOSE, FASTING 326 MG/DL (70-100); POTASSIUM SERUM 4.9 MEQ/L (3.5-5.1); SODIUM LEVEL 133 MEQ/L (136-145)
[2020-10-23 09:42] LABS: BLOOD UREA NITROGEN 11 MG/DL (7-18); CALCIUM LEVEL 8.9 MG/DL (8.5-10.1); CARBON DIOXIDE LEVEL 14 MEQ/L (21-32); CHLORIDE LEVEL 101 MEQ/L (98-107); CREATININE FOR GFR 1.17 MG/DL (0.55-1.30); GLOMERULAR FILTRATION RATE > 60.0 (>58); GLUCOSE, FASTING 354 MG/DL (70-100); POTASSIUM SERUM 4.5 MEQ/L (3.5-5.1); SODIUM LEVEL 136 MEQ/L (136-145)
[2020-10-23] MEDS ORDERED: HALOPERIDOL 5MG/ML VIAL (J1630 PER 1) IV ONE (10:10)
[2020-10-23 13:53] LABS: BLOOD UREA NITROGEN 15 MG/DL (7-18); CALCIUM LEVEL 8.6 MG/DL (8.5-10.1); CARBON DIOXIDE LEVEL 14 MEQ/L (21-32); CHLORIDE LEVEL 100 MEQ/L (98-107); CREATININE FOR GFR 1.43 MG/DL (0.55-1.30); GLOMERULAR FILTRATION RATE 50.5 (>58); GLUCOSE, FASTING 358 MG/DL (70-100); POTASSIUM SERUM 4.2 MEQ/L (3.5-5.1); SODIUM LEVEL 135 MEQ/L (136-145)
[2020-10-23] MEDS ORDERED: AMIT10TA7 PO (14:24)
[2020-10-23] MEDS ORDERED: ACETAMINOPHEN TAB 650MG DOSE (2X325MG) PO PRN (14:45)
[2020-10-23] MEDS ORDERED: INSULIN REGULAR IN 0.9 % NACL 100 UNIT in IV 1 EA IV SCH ×2 (14:45)
[2020-10-23] MEDS ORDERED: ONDANSETRON 4MG/2ML VIAL IV PRN (14:55)
[2020-10-23] MEDS ORDERED: KCL 20MEQ in NS 1000ML 1,000 ML IV SCH (14:55)
[2020-10-23 15:11] LABS: OSMOLALITY SERUM 304 MOSM/KG (275-295)
[2020-10-23 15:13] LABS: ACETONE/KETONE > 46.00 MG/DL (<2.81)
--- NOTE | 2020-10-23 16:06 | HPEPDOC ---
[facility] Medical History & Physical Date of Admission Oct 23, 2020 Date of Service: Oct 23, 2020 Attending Physician: HELEN FRIAS MD History and Physical CHIEF COMPLAINT: N/V HISTORY OF PRESENT ILLNESS: 50 year old W with a history of DM1, CKD stage 3, COPD and chronic marijuana use c/b cyclic vomiting with suspicion of potential cannabinoid hyperemesis syndrome though she denies their association, and gastroparesis who presented to the ED with nausea, vomiting, abdominal pain. Of note, she was recently admitted for the same from 10/13 to 10/21. She was in the ED yesterday with her son who was not feeling well and reported some N/V/abdominal pain. She otherwise denies any recent fever, chills, diarrhea, blood in urine, emesis or stool, dysuria, chest pain or SOB. In the ED, she was hemodynamically stable and afebrile and was given haldol for hyperemesis with some improvement as well as 3L of NS. Initial labs included a POC gas that showed a pH of 7.36, while glucose was in the low 300s and anion gap was 18. She was given some IVF with NS and on repeat she was more acidotic with a pH of 7/29, anion gap of now 21, and beta hydroxybutyrate was >46. She is therefore now being admitted to the ICU for DKA. WBC was 8, Hgb 10.6 at recent baseline, platelets 331, na 135, K 4.2, Cr 1.43, lipase and LFTs within normal limits. PMHX: Type 1 diabetes mellitus with gastroparesis diagnosed in 2006 COPD CKD stage III Surgical history: D&C in 2003 Social history: Tobacco: quit in 2019 ETOH: Denies Ilicit drugs: Smokes marijuana Family history: Father: 69 years old and healthy Mother: 70 years old, has heart disease and diabetes Siblings: 3 brothers are healthy, 1 sister has hypertension Children: 2 sons and 2 daughters are healthy ALLERGIES: Please see below. Review of systems: 10 point ROS was completed and was negative except as noted in the HPI Physical examination: General: NAD, AOx3 Eyes: Conjunctiva clear. PERRLA, EOMI. HEENT: Dry MM. Normocephalic, atraumatic. Trachea midline, no thyromegaly or adenopathy appreciated. Cardiovascular: Regular rate and rhythm. no murmurs or rubs are appreciated Respiratory: clear to auscultation bilaterally, equal inspiratory effort bilaterally, no wheezes or rhonchi noted Abdomen: Normal bowel sounds, patient tender to palpation throughout but with negative peace's and no guarding or rebound, no organomegaly or masses appreciated Extremities:No appreciable edema in bilateral lower extremities Skin: No rashes or ulcerations present. No cyanosis. Labs and Imaging: As summarized above, otherwise please see below for full details Assessment: 50 year old W DM1, CKD stage 3, COPD and chronic marijuana who presented to the ED with N/V and abdominal pain and now found to be in DKA and with an JENNY likely due to dehydration i/s/o N/V with poor PO. Plan: Diabetic Ketoacidosis: -Admit to ICU for DKA protocol -Anion Gap 21 in ED -B-hydroxybutyrate >46 -Blood glucose 359 -K 4.2 -Will start insulin drip with 20meq KCl in NS at 150cc/hr with plan to bridge to fluids with D5 once blood glucose reduces <250 -Q1H FSBG, given how quickly she often corrects -repeat BMP Q4H, osmolality q6H and will recheck ketones as well -will switch to SQ insulin once gap closes -NPO -zofran PRN 4mg Q4HP for N/V COPD: no evidence of exacerbation -not on any home medications CKD stage III -Patient BUN 42, creatinine 1.43 -continue fluids as above DVT prophylaxis: SC heparin TID Vital Signs Vital Signs Date Time Temp Pulse Resp B/P (MAP) Pulse Ox O2 Delivery O2 Flow Rate FiO2 10/23/20 13:15 121 115/71 (86) 100 10/23/20 10:30 Room Air 10/23/20 09:43 96.7 10/23/20 02:54 22 Laboratory Data Labs 24H Laboratory Tests 2 10/23/20 03:38: Bedside Glucose (Misc Panel) 303H 10/23/20 04:30: Immature Granulocyte % (Auto) 0.2, Neutrophils (%) (Auto) 81.4H, Lymphocytes (%) (Auto) 11.2L, Monocytes (%) (Auto) 5.7, Eosinophils (%) (Auto) 1.0, Basophils (%) (Auto) 0.5, Neutrophils # (Auto) 6.5, Lymphocytes # (Auto) 0.9L, Monocytes # (Auto) 0.5, Eosinophils # (Auto) 0.1, Basophils # (Auto) 0.0, Nucleated Red Blood Cells % (auto) 0.0, Blood Gas Bicarbonate Standard 21.0, Venous Blood pH 7.365, Venous Blood Partial Pressure CO2 39.0, Venous Blood Partial Pressure O2 31.6, Venous Blood Total Carbon Dioxide 23.0L, Venous Blood HCO3 21.8L, Venous Blood Oxygen Saturation 55.4L, Venous Blood Base Excess -3.2L, Anion Gap 18H, Glomerular Filtration Rate 59.5, Osmolality 292, Calcium Level 9.3, Total Bilirubin 0.7, Direct Bilirubin 0.1, Aspartate Amino Transf (AST/SGOT) 27, Alanine Aminotransferase (ALT/SGPT) 18, Alkaline Phosphatase 61, Total Creatine Kinase 69, Creatine Kinase MB < 1.0, Creatine Kinase MB Relative Index 1.45, Troponin I < 0.02, Total Protein 7.2, Albumin 4.1, Albumin/Globulin Ratio 1.3, Lipase 37L, B-Hydroxybutyrate > 46.00H 10/23/20 04:38: POC Glucose (Misc Panel) 341H, POC Sodium (Misc Panel) 132L, POC Potassium (Misc Panel) 4.5, POC Chloride (Misc Panel) 94L, POC Total CO2 (Misc Panel) 21.0L, POC Blood Urea Nitrogen (Misc Panel 10, POC Ionized Calcium (Misc Panel) 4.3L, POC Creatinine (Misc Panel) 1.1, POC Hematocrit (Misc Panel) 34.0L 10/23/20 05:07: Lactic Acid Level 1.6 10/23/20 08:56: Anion Gap 21H, Glomerular Filtration Rate > 60.0, Calcium Level 8.9 10/23/20 09:23: POC pH (Misc Panel) 7.346L, POC Base Excess (Misc Panel) -11.0L, POC Saturated Percent O2 (Misc) 98, POC pO2 (Misc Panel) 106.0H, POC pCO2 (Misc Panel) 26.9L, POC HCO3 (Misc Panel) 14.7L, POC Total CO2 (Misc Panel) 16.0L 10/23/20 12:40: Bedside Glucose (Misc Panel) 351H 7/20/21 13:08: Anion Gap 21H, Glomerular Filtration Rate 50.5L, Calcium Level 8.6 10/23/20 13:16: POC pH (Misc Panel) 7.290L, POC Base Excess (Misc Panel) -16.0L, POC Saturated Percent O2 (Misc) 98, POC pO2 (Misc Panel) 118.0H, POC pCO2 (Misc Panel) 21.3L, POC HCO3 (Misc Panel) 10.3L, POC Total CO2 (Misc Panel) 11.0L CBC/BMP Laboratory Tests 10/23/20 04:30 10/23/20 08:56 10/23/20 13:08 Microbiology Microbiology 10/23/20 Respiratory Virus Panel (PCR) ([facility] [place]), Received Pending Home Medications Scheduled Amitriptyline HCl (Amitriptyline HCl) 10 Mg Tablet, 20 MG PO QHS Insulin Glargine,Hum.rec.anlog (Basaglar Kwikpen U-100) 100 Unit/1 Ml Insuln.pen, 5 UNIT SC DAILY Insulin NPH Hum/Reg Insulin Hm (Novolin 70-30 Flexpen) 100 Unit/1 Ml Insuln.pen, 1 DOSE SC AC PER SLIDING SCALE Allergies Coded Allergies: No Known Allergies (Verified , 11/30/19) A-FIB/CHADSVASC A-FIB History Current/History of A-Fib/PAF?: No Current PO Anticoag Therapy: No Age/Risk Factor Scoring CHADSVASC: CHADSVASC Response (Comments) Value Age Risk Factor Age < 65 years old 0 Gender Risk Factor Female 1 Hx of CHF No 0 Hx of HTN No 0 Hx of Stroke/TIA/or VTE No 0 Hx of Diabetes Yes 1 Hx of Vascular Disease No 0 Total 2 Treatment Treatment ordered: NONE Reason Anticoagulant not given: Not indicated/[id number] HELEN FRIAS MD Oct 23, 2020 15:25
[2020-10-23] MEDS: INSULIN IV RATE CHANGE DOCUMENTATION ML/HR XX SCH ×2 (18:46→20:55)
[2020-10-23 20:00] VITALS: BP 147/79
[2020-10-23] MEDS ORDERED: METOCLOPRAMIDE INJ 10MG/2ML VIAL (J2765 PER 1) IV ONE (21:20)
[2020-10-23] MEDS ORDERED: MORPHINE 4 MG/ML 1ML VIAL/SYRINGE (J2270) IV ONE (21:25)
[2020-10-23] MEDS ORDERED: ACETAMINOPHEN 325 MG/10.15 ML UDC GT PRN (21:25)
[2020-10-23] MEDS ORDERED: MORPHINE 4 MG/ML 1ML VIAL/SYRINGE (J2270) IV PRN (21:25)
[2020-10-23] MEDS: SODIUM BICARBONATE 150 MEQ in STERILE WATER LITER BAG 1,000 ML IV SCH ×2 (22:26→23:52)
[2020-10-23] MEDS: HEPARIN SOD (PORCINE) 5000UNITS/ML 1ML VIAL/SYRINGE SC SCH (22:26)
[2020-10-23] MEDS ORDERED: DEXTROSE 50% 50 ML VIAL IV ONE (22:30)
[2020-10-23 23:02] LABS: VENOUS BASE EXCESS -3.4 (-2.0-2.0); VENOUS HCO3 20.3 MEQ/L (23.0-27.0); VENOUS O2 SATURATION 99.2 % (60.0-80.0); VENOUS PARTIAL PRESSURE CO2 31.3 mmHg (38.0-50.0); VENOUS PARTIAL PRESSURE O2 211.1 mmHg (30.0-50.0); VENOUS PH 7.429 UNITS (7.330-7.430); VENOUS STANDARD HCO3 21.6 MEQ/L; VENOUS TOTAL CO2 21.2 MEQ/L (24.0-28.0)
[2020-10-24] VITALS: BP 129/67
[2020-10-24] LABS: BLOOD UREA NITROGEN 14 MG/DL (7-18); CALCIUM LEVEL 7.7 MG/DL (8.5-10.1); CARBON DIOXIDE LEVEL 23 MEQ/L (21-32); CHLORIDE LEVEL 111 MEQ/L (98-107); CREATININE FOR GFR 1.17 MG/DL (0.55-1.30); GLOMERULAR FILTRATION RATE > 60.0 (>58); GLUCOSE, FASTING 45 MG/DL (70-100); MAGNESIUM LEVEL 1.4 MG/DL (1.8-2.4); PHOSPHORUS LEVEL 1.4 MG/DL (2.5-4.9); POTASSIUM SERUM 3.9 MEQ/L (3.5-5.1); SODIUM LEVEL 142 MEQ/L (136-145)
[2020-10-24 00:41] LABS: OSMOLALITY SERUM 283 MOSM/KG (275-295)
[2020-10-24] MEDS ORDERED: CALCIUM GLUCONATE 1,000 MG in D5W MINI-BAG PLUS 100 ML IV ONE (00:45)
[2020-10-24] MEDS: LEVEMIR (INSULIN DETEMIR) 1 UNITS/0.01ML SC ONE ×2 (01:00→05:21)
[2020-10-24] MEDS: ONDANSETRON 4MG/2ML VIAL IV SCH ×4 (01:08→18:00)
[2020-10-24] MEDS ORDERED: POTASSIUM PHOSPHATE INJ 20 MMOL in D5W 250 ML IV ONE ×2 (01:30→05:30)
[2020-10-24] MEDS: MAG SULF 1GM/100ML (MAG RUN) 1 GM in IV 1 EA IV SCH ×5 (02:21→10:17)
[2020-10-24 02:53] LABS: VENOUS BASE EXCESS -0.3 (-2.0-2.0); VENOUS HCO3 21.9 MEQ/L (23.0-27.0); VENOUS O2 SATURATION 98.4 % (60.0-80.0); VENOUS PARTIAL PRESSURE CO2 26.9 mmHg (38.0-50.0); VENOUS PARTIAL PRESSURE O2 132.6 mmHg (30.0-50.0); VENOUS PH 7.529 UNITS (7.330-7.430); VENOUS STANDARD HCO3 24.3 MEQ/L; VENOUS TOTAL CO2 22.7 MEQ/L (24.0-28.0)
[2020-10-24] MEDS: METOCLOPRAMIDE INJ 10MG/2ML VIAL (J2765 PER 1) IV SCH ×4 (03:03→21:17)
[2020-10-24] MEDS ORDERED: D5W/0.45% SODIUM CHLORIDE 1,000 ML IV SCH ×2 (03:45→05:15)
[2020-10-24 03:47] LABS: BLOOD UREA NITROGEN 13 MG/DL (7-18); CALCIUM LEVEL 7.7 MG/DL (8.5-10.1); CARBON DIOXIDE LEVEL 25 MEQ/L (21-32); CHLORIDE LEVEL 103 MEQ/L (98-107); CREATININE FOR GFR 1.04 MG/DL (0.55-1.30); GLOMERULAR FILTRATION RATE > 60.0 (>58); GLUCOSE, FASTING 109 MG/DL (70-100); MAGNESIUM LEVEL 1.4 MG/DL (1.8-2.4); POTASSIUM SERUM 3.7 MEQ/L (3.5-5.1); SODIUM LEVEL 138 MEQ/L (136-145)
[2020-10-24 04:00] VITALS: BP 132/77
[2020-10-24] MEDS ORDERED: DEXTROSE 50% 50 ML SYRINGE IV PRN (04:55)
[2020-10-24] MEDS ORDERED: GLUCAGON INJ 1MG VIAL SC PRN (04:55)
[2020-10-24] MEDS ORDERED: GLUCOSE 4GM CHEW TABLET PO PRN (04:55)
--- NOTE | 2020-10-24 05:17 | ECGEPIP ---
[facility] - ED Test Date: 2020-10-23 Pat Name: CHINMAY CHEST Department: Room: [place] [address] Gender: Female [employer]: : 1970 Requested By: Rocky Oliver Order Number: [id number] Reading MD: Rocky Lennon Measurements Intervals [place] Rate: 126 P: MA: 128 QRS: 49 QRSD: 54 T: 27 QT: 394 QTc: 570 Interpretive Statements Sinus tachycardia Low voltage QRS POOR R WAVE PROGRESSION BASELINE ARTIFACT AFFECTS INTERPRETATION SIMILAR TO 09/16/20 Electronically Signed on 10-24-2020 5:16:58 EDT by Rocky Lennon
[2020-10-24] MEDS: CALCIUM GLUCONATE 1,000 MG in D5W MINI-BAG PLUS 100 ML IV SCH ×2 (05:22→06:38)
[2020-10-24] MEDS: HEPARIN SOD (PORCINE) 5000UNITS/ML 1ML VIAL/SYRINGE SC SCH ×3 (06:09→21:17)
[2020-10-24 06:58] LABS: VENOUS BASE EXCESS -0.4 (-2.0-2.0); VENOUS HCO3 21.8 MEQ/L (23.0-27.0); VENOUS O2 SATURATION 98.8 % (60.0-80.0); VENOUS PARTIAL PRESSURE CO2 27.3 mmHg (38.0-50.0); VENOUS PARTIAL PRESSURE O2 198.4 mmHg (30.0-50.0); VENOUS PH 7.521 UNITS (7.330-7.430); VENOUS STANDARD HCO3 24.2 MEQ/L; VENOUS TOTAL CO2 22.7 MEQ/L (24.0-28.0)
[2020-10-24 07:26] LABS: OSMOLALITY SERUM 281 MOSM/KG (275-295)
[2020-10-24 07:29] LABS: BLOOD UREA NITROGEN 11 MG/DL (7-18); CALCIUM LEVEL 7.9 MG/DL (8.5-10.1); CARBON DIOXIDE LEVEL 25 MEQ/L (21-32); CHLORIDE LEVEL 99 MEQ/L (98-107); CREATININE FOR GFR 1.04 MG/DL (0.55-1.30); GLOMERULAR FILTRATION RATE > 60.0 (>58); GLUCOSE, FASTING 201 MG/DL (70-100); MAGNESIUM LEVEL 1.9 MG/DL (1.8-2.4); PHOSPHORUS LEVEL 3.3 MG/DL (2.5-4.9); POTASSIUM SERUM 3.5 MEQ/L (3.5-5.1); SODIUM LEVEL 136 MEQ/L (136-145)
[2020-10-24] MEDS: HumaLOG INSULIN (NovoLOG) PER UNIT SC SCH ×3 (08:01→17:22)
[2020-10-24 08:12] VITALS: BP 137/77
[2020-10-24] MEDS ORDERED: KCL 20MEQ IN D5/0.45NS 1000ML 1,000 ML IV SCH (10:00)
[2020-10-24 10:53] LABS: HEMATOCRIT 21.8 % (36.0-47.0); MEAN CORPUSCULAR HGB CONC 34.4 g/dl (32.0-36.5); MEAN CORPUSCULAR VOLUME 84.2 fl (80.0-96.0); PLATELET COUNT, AUTOMATED 275 10^3/uL (150-450); RED BLOOD COUNT 2.59 10^6/uL (4.00-5.40); WHITE BLOOD COUNT 8.9 10^3/uL (4.0-10.0)
[2020-10-24 11:19] LABS: HEMOGLOBIN 7.5 g/dl (12.0-15.5)
[2020-10-24 11:23] LABS: BLOOD UREA NITROGEN 9 MG/DL (7-18); CALCIUM LEVEL 8.1 MG/DL (8.5-10.1); CARBON DIOXIDE LEVEL 30 MEQ/L (21-32); CHLORIDE LEVEL 97 MEQ/L (98-107); CREATININE FOR GFR 1.16 MG/DL (0.55-1.30); GLOMERULAR FILTRATION RATE > 60.0 (>58); GLUCOSE, FASTING 139 MG/DL (70-100); MAGNESIUM LEVEL 2.3 MG/DL (1.8-2.4); PHOSPHORUS LEVEL 3.5 MG/DL (2.5-4.9); POTASSIUM SERUM 3.4 MEQ/L (3.5-5.1); SODIUM LEVEL 134 MEQ/L (136-145)
[2020-10-24 11:48] VITALS: BP 120/78
[2020-10-24 15:04] LABS: BLOOD UREA NITROGEN 8 MG/DL (7-18); CALCIUM LEVEL 8.4 MG/DL (8.5-10.1); CARBON DIOXIDE LEVEL 27 MEQ/L (21-32); CHLORIDE LEVEL 98 MEQ/L (98-107); GLOMERULAR FILTRATION RATE > 60.0 (>58); GLUCOSE, FASTING 126 MG/DL (70-100); MAGNESIUM LEVEL 2.3 MG/DL (1.8-2.4); PHOSPHORUS LEVEL 3.1 MG/DL (2.5-4.9); POTASSIUM SERUM 3.3 MEQ/L (3.5-5.1); SODIUM LEVEL 131 MEQ/L (136-145)
[2020-10-24] MEDS ORDERED: POTASSIUM CHLORIDE 10% LIQ 20 MEQ/15 ML UDC PO ONE (16:05)
[2020-10-24 16:08] VITALS: BP 149/88
[2020-10-24 18:58] LABS: BLOOD UREA NITROGEN 7 MG/DL (7-18); CALCIUM LEVEL 8.6 MG/DL (8.5-10.1); CARBON DIOXIDE LEVEL 27 MEQ/L (21-32); CHLORIDE LEVEL 96 MEQ/L (98-107); CREATININE FOR GFR 1.17 MG/DL (0.55-1.30); GLOMERULAR FILTRATION RATE > 60.0 (>58); GLUCOSE, FASTING 125 MG/DL (70-100); PHOSPHORUS LEVEL 2.9 MG/DL (2.5-4.9); POTASSIUM SERUM 3.7 MEQ/L (3.5-5.1); SODIUM LEVEL 131 MEQ/L (136-145)
--- NOTE | 2020-10-24 19:32 | IPNPDOC ---
Text Note Date of Service The patient was seen on 10/24/20. NOTE Subjective: -N/V improved after being placed on reglan and zofran PRN. However appetite remains poor -Overnight required repletion of Ca, phos, K and Mag Physical examination: General: NAD, AOx3 Eyes: Conjunctiva clear. PERRLA, EOMI. HEENT: Dry MM. Normocephalic, atraumatic. Trachea midline, no thyromegaly or adenopathy appreciated. Cardiovascular: Regular rate and rhythm. no murmurs or rubs are appreciated Respiratory: clear to auscultation bilaterally, equal inspiratory effort bilaterally, no wheezes or rhonchi noted Abdomen: Normal bowel sounds, patient tender to palpation throughout but with negative peace's and no guarding or rebound, no organomegaly or masses appreciated Extremities:No appreciable edema in bilateral lower extremities Skin: No rashes or ulcerations present. No cyanosis. Labs: Reviewed Assessment: 50 year old W DM1, CKD stage 3, COPD and chronic marijuana who presented to the ED with N/V and abdominal pain and now found to be in DKA and with an JENNY likely due to dehydration i/s/o N/V with poor PO. Plan: Diabetic Ketoacidosis: -Gap has closed but not tolerating PO, so will continue D51/2NS with 20meqK for now at 125cc/hr -recheck ketones -Q4H BMP, phos, mag, Ca with aggressive repletion -Q2H FSBG -s/p levemir 5u overnight when gap closed -zofran and reglan PRN for nausea -trial of PO COPD: no evidence of exacerbation -not on any home medications JENNY on CKD stage III: resolved with hydration -Patient BUN 42, creatinine 1.43 -continue fluids as above DVT prophylaxis: SC heparin TID VS,Fishbone, I+O VS, Fishbone, I+O Laboratory Tests 10/23/20 13:08 10/23/20 22:52 10/24/20 02:39 10/24/20 06:50 Vital Signs Date Time Temp Pulse Resp B/P (MAP) Pulse Ox O2 Delivery O2 Flow Rate FiO2 10/24/20 04:00 98.4 93 17 132/77 (95) 100 Room Air I&O- Last 24 Hours up to 6 AM 10/24/20 06:00 Intake Total 3046 ml Output Total 0 ml Balance 3046 ml HELEN FRIAS MD Oct 24, 2020 10:16
[2020-10-24 20:00] VITALS: BP 154/85
[2020-10-24] MEDS ORDERED: HumaLOG INSULIN (NovoLOG) PER UNIT SC SCH (21:00)
[2020-10-24 22:39] LABS: BLOOD UREA NITROGEN 6 MG/DL (7-18); CALCIUM LEVEL 8.3 MG/DL (8.5-10.1); CARBON DIOXIDE LEVEL 27 MEQ/L (21-32); CHLORIDE LEVEL 102 MEQ/L (98-107); CREATININE FOR GFR 0.96 MG/DL (0.55-1.30); GLOMERULAR FILTRATION RATE > 60.0 (>58); GLUCOSE, FASTING 71 MG/DL (70-100); PHOSPHORUS LEVEL 2.5 MG/DL (2.5-4.9); POTASSIUM SERUM 3.5 MEQ/L (3.5-5.1); SODIUM LEVEL 135 MEQ/L (136-145)
[2020-10-25] VITALS (8 sets, daily range): BP systolic 141–170; BP diastolic 82–96
[2020-10-25] MEDS: METOCLOPRAMIDE INJ 10MG/2ML VIAL (J2765 PER 1) IV SCH ×2 (03:49→09:10)
[2020-10-25 05:00] LABS: HEMOGLOBIN 7.6 g/dl (12.0-15.5); MEAN CORPUSCULAR HEMOGLOBIN 29.1 pg (27.0-33.0); MEAN CORPUSCULAR HGB CONC 34.5 g/dl (32.0-36.5); MEAN CORPUSCULAR VOLUME 84.3 fl (80.0-96.0); PLATELET COUNT, AUTOMATED 271 10^3/uL (150-450); RED BLOOD COUNT 2.61 10^6/uL (4.00-5.40); WHITE BLOOD COUNT 7.1 10^3/uL (4.0-10.0)
[2020-10-25 05:22] LABS: BLOOD UREA NITROGEN 5 MG/DL (7-18); CALCIUM LEVEL 8.2 MG/DL (8.5-10.1); CARBON DIOXIDE LEVEL 28 MEQ/L (21-32); CHLORIDE LEVEL 101 MEQ/L (98-107); CREATININE FOR GFR 0.93 MG/DL (0.55-1.30); GLOMERULAR FILTRATION RATE > 60.0 (>58); GLUCOSE, FASTING 87 MG/DL (70-100); POTASSIUM SERUM 3.5 MEQ/L (3.5-5.1); SODIUM LEVEL 136 MEQ/L (136-145)
[2020-10-25] MEDS: ONDANSETRON 4MG/2ML VIAL IV SCH ×2 (06:00)
[2020-10-25 06:17] LABS: FERRITIN 48 NG/ML (8-252); IRON (FE) 56 UG/DL (50-170); PERCENT SATURATION 29.2 % (13.2-45.0); TOTAL IRON BINDING CAPACITY 192 UG/DL (250-450)
[2020-10-25] MEDS ORDERED: SUCRALFATE SUSP 1GM/10ML UD PO SCH (07:30)
[2020-10-25] MEDS ORDERED: PANTOPRAZOLE 40MG VIAL (C9113 PER 1) IV SCH (09:00)
[2020-10-25] MEDS ORDERED: LEVEMIR (INSULIN DETEMIR) 1 UNITS/0.01ML SC SCH (09:00)
[2020-10-25] MEDS: HumaLOG INSULIN (NovoLOG) PER UNIT SC SCH (09:11)
[2020-10-25] MEDS ORDERED: POTASSIUM CHLORIDE 10% LIQ 20 MEQ/15 ML UDC PO ONE (09:30)
[2020-10-25] MEDS ORDERED: DOCUSATE SODIUM 100MG CAPSULE PO PRN (10:15)
[2020-10-25] MEDS ORDERED: DOK1CAP7 PO (11:21)
[2020-10-25] MEDS ORDERED: NOVOINJ3 SC (11:21)
[2020-10-25] MEDS ORDERED: PANT40TA29 PO (11:21)
[2020-10-25] MEDS ORDERED: REGL10TA6 PO (11:21)
--- NOTE | 2020-10-25 11:42 | DS.PDOC ---
Discharge Summary General Date of Admission Oct 24, 2020 at 10:00 Date of Discharge 10/25/2020 Attending Physician: HELEN FRIAS MD Discharge Summary PROCEDURES PERFORMED DURING STAY: None ADMITTING DIAGNOSES: DKA DISCHARGE DIAGNOSES: DKA i/s/o N/V Cyclic vomiting syndrome Hypokalemia Hypomagnesemia Hypocalcemia JENNY on CKD stage III Type 1 diabetes mellitus with gastroparesis diagnosed in 2006 COPD JENNY on CKD stage III COMPLICATIONS/CHIEF COMPLAINT: Dka,Nausea&Vomiting. HISTORY OF PRESENT ILLNESS: 50 year old W with a history of DM1, CKD stage 3, COPD and chronic marijuana use c/b cyclic vomiting with suspicion of potential cannabinoid hyperemesis syndrome though she denies their association or frequent use, and gastroparesis who presented to the ED with nausea, vomiting, abdominal pain. Of note, she was recently admitted for the same from 10/13 to 10/21. She was in the ED the day prior to admission with her son who was not feeling well and reported some N/V/abdominal pain but otherwise denied any recent fever, chills, diarrhea, blood in urine, emesis or stool, dysuria, chest pain or SOB. HOSPITAL COURSE: In the ED, she was hemodynamically stable and afebrile and was given haldol for hyperemesis with some improvement as well as 3L of NS. Initial labs included a POC gas that showed a pH of 7.36, while glucose was in the low 300s and anion gap was 18. She was given some IVF with NS and on repeat she was more acidotic with a pH of 7/29, anion gap of now 21, and beta hydroxybutyrate was >46. She was admitted to the ICU for DKA. WBC was 8, Hgb 10.6 at recent baseline, platelets 331, na 135, K 4.2, Cr 1.43, lipase and LFTs within normal limits. DKA eventually resolved and she is now being discharged home on levemir 5u daily as well as switching her from 70/30 SSI to standard SSI with short acting insulin for traditional basal bolus insulin management. She has a scheduled appt with an child development director that is unfortunately not until 05/2021. I will also prescribe her PRN reglan for N/V to prevent prolonged symptoms tipping her into DKA as w ell as protonix. She refused carafate. DISCHARGE MEDICATIONS: Please see below. ALLERGIES: Please see below. PHYSICAL EXAMINATION ON DISCHARGE: VITAL SIGNS: Please see below. General: NAD, AOx3 Eyes: Conjunctiva clear. PERRLA, EOMI. HEENT: MMM. Normocephalic, atraumatic. Trachea midline, no thyromegaly or adenopathy appreciated. Cardiovascular: Regular rate and rhythm. no murmurs or rubs are appreciated Respiratory: clear to auscultation bilaterally, equal inspiratory effort bilaterally, no wheezes or rhonchi noted Abdomen: Normal bowel sounds, nontender this morning and no guarding or rebound, no organomegaly or masses appreciated Extremities:No appreciable edema in bilateral lower extremities Skin: No rashes or ulcerations present. No cyanosis. LABORATORY DATA: Please see below. IMAGING: None PROGNOSIS: Good ACTIVITY: As tolerated DIET: consistent carb DISCHARGE PLAN: Home with levemir 5u, aspart SSI pens with directions, to stop 70/30 insulin SSI, close PCP follow up, PRN reglan, and daily protonix DISPOSITION: Home DISCHARGE INSTRUCTIONS: Home with levemir 5u, aspart SSI pens with directions, to stop 70/30 insulin SSI, close PCP follow up, PRN reglan, and daily protonix ITEMS TO FOLLOWUP ON ON OUTPATIENT: DM DISCHARGE CONDITION: Stable TIME SPENT ON DISCHARGE: 45 minutes. Vital Signs/I&Os Vital Signs Date Time Temp Pulse Resp B/P (MAP) Pulse Ox O2 Delivery O2 Flow Rate FiO2 10/25/20 10:47 97.9 98 16 146/82 100 Room Air I&O- Last 24 Hours up to 6 AM 10/25/20 06:00 Intake Total 2646.7 ml Output Total 1200 ml Balance 1446.7 ml Laboratory Data Labs 24H Laboratory Tests 2 10/24/20 11:49: Bedside Glucose (Misc Panel) 130H 10/24/20 14:14: Anion Gap 6L, Glomerular Filtration Rate > 60.0, Calcium Level 8.4L, Whole Blood Ionized Calcium 3.9L, Phosphorus Level 3.1, Magnesium Level 2.3 10/24/20 17:13: Bedside Glucose (Misc Panel) 122H 10/24/20 18:02: Magnesium Level 2.2 10/24/20 18:21: Anion Gap 8, Glomerular Filtration Rate > 60.0, Calcium Level 8.6, Whole Blood Ionized Calcium 4.6, Phosphorus Level 2.9 10/24/20 21:10: Bedside Glucose (Misc Panel) 79 10/24/20 22:04: Anion Gap 6L, Glomerular Filtration Rate > 60.0, Calcium Level 8.3L, Phosphorus Level 2.5 10/25/20 04:49: Anion Gap 7L, Glomerular Filtration Rate > 60.0, Calcium Level 8.2L, Reticulocyte # (auto) 28.9, Nucleated Red Blood Cells % (auto) 0.0, Differential Slide Review Report, Peripheral Blood Smear Path Consult PERIPHERAL SMEAR, Percent Reticulocyte Count 1.1, Reticulocyte Hemoglobin Equivalent 33.7, Iron Level 56, Total Iron Binding Capacity 192L, Transferrin % Saturation 29.2, Ferritin 48 10/25/20 06:05: 10/25/20 07:59: Bedside Glucose (Misc Panel) 135H CBC/BMP Laboratory Tests 10/24/20 14:14 10/24/20 18:21 10/24/20 22:04 10/25/20 04:49 FSBS Laboratory Tests Test 10/24/20 11:49 10/24/20 17:13 10/24/20 21:10 10/25/20 07:59 Range/Units Bedside Glucose (Misc Panel) 130 122 79 135 70-105 MG/DL Microbiology Microbiology 10/23/20 Blood Culture - Preliminary, Resulted No growth after 24 hours . All specim... 10/23/20 Blood Culture - Preliminary, Resulted No growth after 24 hours . All specim... 10/23/20 Respiratory Virus Panel (PCR) (GLENDA) - Final, Complete Discharge Medications Scheduled Amitriptyline HCl (Amitriptyline HCl) 10 Mg Tablet, 20 MG PO QHS, (Reported) Insulin Aspart (Novolog Flexpen) 100 Unit/1 Ml Insuln.pen, 1 UNITS SC ACHS Insulin Glargine,Hum.rec.anlog (Basaglar Kwikpen U-100) 100 Unit/1 Ml Insuln.pen, 5 UNIT SC DAILY, (Reported) Metoclopramide HCl (Reglan) 10 Mg Tablet, 1 TAB PO TIDP before food and bedtime Pantoprazole Sodium (Pantoprazole Sodium) 40 Mg Tablet.dr, 1 TAB PO DAILY Scheduled PRN Docusate Sodium (Dok) 100 Mg Capsule, 200 MG PO DAILYPRN PRN for CONSTIPATION Allergies Coded Allergies: No Known Allergies (Verified , 11/30/19) HELEN FRIAS MD Oct 25, 2020 11:34
== END 2020-10-25 11:55 | disposition home or self-care (01) | DRG 420 ==
LOC: M ED 02:49 → M ED INP 14:43 → M ICU 19:54 → OBSVTOIN 10-24 10:00
PROVIDERS: ADMIT Internal Medicine; ATTEND Internal Medicine
PROC: 30233N1 Transfusion of Nonautologous Red Blood Cells into Peripheral Vein, Percutaneous Approach (ICD-10-PCS; principal; 2020-10-25)
DX: E10.10 Type 1 diabetes mellitus with ketoacidosis without coma (principal); K31.84 Gastroparesis; N17.9 Acute kidney failure, unspecified; E83.51 Hypocalcemia; E83.42 Hypomagnesemia; E10.22 Type 1 diabetes mellitus with diabetic chronic kidney disease; N18.30 Chronic kidney disease, stage 3 unspecified; E10.43 Type 1 diabetes mellitus with diabetic autonomic (poly)neuropathy; J44.9 Chronic obstructive pulmonary disease, unspecified; F12.10 Cannabis abuse, uncomplicated; R11.2 Nausea with vomiting, unspecified; E86.0 Dehydration; E87.6 Hypokalemia; Z79.4 Long term (current) use of insulin; Z79.899 Other long term (current) drug therapy

== ENCOUNTER 2021-02-14 11:25 | Inpatient (IN) | payer OTHER ==
[~2021-02-14] VITALS: Ht 170.2 cm; Wt 70.8 kg
[~2021-02-14 11:25] MED LIST changes: +DOK1CAP4 PO
--- OUTSIDE RECORDS SUMMARY | 2021-02-14 11:35 | CCD ---
Author Organization Unknown Address [address] [place] [address] Phone [phone] Care Team Providers Care Traffic Clerk Name Role Phone MICHAEL ORJAS MD [phone] ISMAEL PADILLA MD 3 [phone] Allergies Code Code System Name Reaction Severity Status Onset NKDA Medications Name Status Start Date Stop Date acetaminophen 650 mg tablet Take 1 tablet 3 times a day by oral route. Completed 08/17/2020 Admelog SoloStar U-100 Insulin lispro 10 0 unit/mL subcutaneous pen sliding scale Active Not available Admelog U-100 Insulin lispro 100 unit/mL subcutaneous solution INJECT USE DIRECTED PER SLIDING SCALE MAXIMUM DAILY DOSE 15 UNITS Active Not available Alcohol Prep Pads USE DIRECTED Completed 12/26/2020 amitriptyline 10 mg tablet Take 2 tablets every day by oral route at bedtime. Completed 10/31/2020 amoxicillin 875 mg tablet Completed 2019 amoxicillin 875 mg-potassium clavulanate 125 mg tablet TAKE ONE TABLET BY MOUTH EVERY 12 HOURS Completed 09/18/2020 Basaglar KwikPen U-100 Insulin Take 5 units SC daily Completed 12/26/2020 Basaglar KwikPen U-100 Insulin 100 unit/ mL (3 mL) subcutaneous Inject 15 units every day by subcutaneous route. Active Not available BD Insulin Syringe Ultra-Fine 0.5 mL 31 gauge x 5/16" USE WITH INSULIN MEALS AND AT BEDTIME Completed 0 12/26/2020 BD Insulin Syringe Ultra-Fine 1 mL 31 ga uge x 5/16" USE DIRECTED Completed 12/26/2020 BD Ultra-Fine Sonya Pen Needle 32 gauge x 5/32" USE UNDER THE SKIN DAILY DIRECTED Completed BD Ultra-Fine Short Pen Needle 31 gauge x 5/16" USE DIRECTED WITH BASAGLAR ONCE DAILY AT BEDTIME Completed 12/26/2020 Carafate 1 gram tablet Take 1 tablet twice a day by oral route as directed. Completed 08/17/2020 docusate sodium 100 mg capsule Take 2 capsules every day by oral route as needed. Completed 12/26/2020 Humulin R Regular U-100 Insulin 100 unit /mL injection solution INJECT SUBCUTANEOUSLY BEFORE MEALS AND AT BEDTIME PER SLIDING SCALE MAXIMUM DAILY DOSE 50 UNITS Completed 10/10/2020 Levemir FlexTouch U-100 Insuln Pen; give 5 units daily Completed 10/29/2020 magnesium citrate oral solution Active Not available metoclopramide 10 mg tablet Take 1 tablet 3 times a day by oral route as directed. Completed 12/26/2020 metoclopramide 5 mg tablet Completed 08/17 multivitamin Take one daily Completed 12/26/2020 Novolin 70/30 U-100 Insulin 100 unit/mL subcutaneous suspension INJECT SUBCUTANEOUSLY PER SLIDING SCALE THREE TIMES A DAY MAXIMUM DAILY DOSE 50 UNITS Completed 10/31/2020 omeprazole 20 mg capsule,delayed release TAKE ONE CAPSULE BY MOUTH TWICE A DAY Completed 04/24/2019 ondansetron 4 mg disintegrating tablet DISSOLVE ONE TABLET ON TONGUE EVERY 6 TO 8 HOURS NEEDED FOR NAUSEA AND VOMITING Completed 04/02/2020 ondansetron HCl 4 mg tablet Completed 02/04 OneTouch Delica Plus Lancet 33 gauge Completed 12/26/2020 OneTouch Verio Flex Meter USE DIRECTED TO TEST BLOOD SUGAR Completed Advanced Biomed[employer] TechnologiesTouch Verio test strips USE TO TEST BLOOD SUGAR FOUR TIMES A DAY BEFORE MEALS AND AT BEDTIME Unknown Not available oxycodone 5 mg tablet Completed 02/23/2020 Pain Relief (acetaminophen) 650 mg tablet,extended release Compl eted 08/17/2020 pantoprazole 40 mg tablet,delayed releas e Take 1 tablet every day by oral route. Completed 12/26/2020 penicillin V potassium 500 mg tablet TAKE ONE TABLET BY MOUTH TWICE A DAY Completed prochlorperazine 25 mg rectal suppositor y INSERT ONE SUPPOSITORY RECTALLY EVERY 8 HOURS NEEDED FOR NAUSEA Completed 02/23/2020 tramadol 50 mg tablet Take 1 tablet every 4 hours by oral route as needed. Completed 08/17/2020 Problems Name Status Onset Date Source Clinical Finding Unknown 09/22/2017 History Type 1 Diabetes Mellitus Active 07/10/2020 Anemia of Chronic Disease Active 07/10/2020 Gastroesophageal Reflux Disease Active 07/10/2020 Gastroparesis Due to Type 1 Diabetes Mellitus Active Calorie Restricted Diet Active 07/10/2020 History of SARS-CoV-2 Active 10/09/2020 Cannabis Abuse Active 10/31/2020 Chronic Kidney Disease Stage 3a Active 10/31/2020 Procedures Date Name Performed by 04/06/2002 Dilation and Curettage Information not a vailable 10/10/2020 US, Echocardiogram [facility] [address] [place] [id number] (Work [address]) Results Lab Results Date Name Specimen Result Interpretation Description Value Range Status Address 10/10/2020 Lipid Panel, Serum High Cholesterol, Tota l 214 mg/dL <200 mg/dL Final [facility]: [address] [facility] Normal HDL Cholesterol 67 mg/dL > or = 50 m g/dL Final [facility]: [address] [facility] Normal Triglycerides 59 mg/dL <150 mg/dL Fi nal [facility]: [address] [facility] High LDL-cholesterol 132 mg/dL (calc) Final [facility]: [address] [place] [address] Normal Chol/hdlc Ratio 3.2 (calc) <5.0 (alber c) Final [facility]: [address] [facility] High Non HDL Cholesterol 147 mg/dL (calc) <130 mg/dL (calc) [facility]: [address] [facility] 10/10/2020 Troponin I, Serum or Plasma Normal Troponin I 16 NG/L < or = 47 NG/L Final [facility]: [address] [facility] 10/10/2020 HbA1C (Hemoglobin a1C), Blood High Hemoglobin a1C 9.2 % of total HGB <5.7 % of total HGB Final [facility]: [address] [facility] 06/25/2020 CBC W/ Auto Diff Normal White Blood Count 6.7 10 4.0-10.0 10 Final [facility]: [address] [place] [address] Normal Red Blood Count 4.14 10 4.00-5.[address] [facility]: 0 [facility] Low Hemoglobin 11.8 g/dL 12.0-15.5 g/dL [facility]: [address] [place] [address] Low Hematocrit 35.6 % 36.0-47.0 % [facility]: [address] [place] [address] Normal Mean Corpuscular Volume 86.0 fL 80.0 -96.[address] [facility]: [address] [place] [address] Normal Mean Corpuscular Hemoglobin 28.5 pg 27.0-33.[address] [facility]: [address] [place] [address] Normal Mean Corpuscular HGB Conc 33.1 g/dL 32.0-36.5 g/dL [facility]: [address] [place] [address] High Red Cell Distribution Width 15.1 % 1 1.5-14.5 % [facility]: [address] [place] [address] Normal Platelet Count, Automated 253 10 150 -[address] [facility]: 0 [facility] High Neutrophils % 72.6 % 36.0-66.0 % [facility]: [address] [facility] Low Lymph % 18.9 % 24.0-44.0 % [facility]: 0 [facility] Normal Lynn % 7.9 % 2.0-8.0 % [facility]: 0 [facility] Normal Eos % 0.1 % 0.0-3.0 % [facility]: 0 [facility] Normal Baso % 0.4 % 0.0-1.0 % [facility]: [address] [facility] Normal Immature Granulocyte % 0.1 % 0-3.0 % [facility]: [address] [place] [address] Normal Nucleated Red Blood Cell % 0.0 % 0- 0 % [facility]: 0 [facility] Normal Neutrophils # 4.9 10 1.5-8.5 10 [facility]: 0 [facility] Low Lymph # 1.3 10 1.5-5.0 10 [facility]: [address] [facility] Normal Lynn # 0.5 10 0.0-0.8 10 [facility]: [address] [facility] Normal Eos # 0.0 10 0.0-0.5 10 [facility]: [address] [facility] Normal Baso # 0.0 10 0.0-0.2 10 [facility]: [address] [facility] 06/25/2020 Lactic Acid, Serum or Plasma Normal Lactic Acid Sepsis Protocol 1.4 mmol/L 0.4-2.0 mmol/L [facility]: [address] [facility] 06/25/2020 Hepatic Function Panel, Serum Normal AST/SG OT 14 U/L 7-37 U/L [facility]: [address] [facility] Normal ALT/SGPT 15 U/L 12-78 U/L [facility]: [address] [facility] Normal Alkaline Phosphatase 71 U/L 45-117 U /L [facility]: [address] [facility] Normal Bilirubin,total 1.0 mg/dL 0.2-1.0 mg /dL [facility]: 0 [facility] High Bilirubin,direct 0.3 mg/dL 0.0-0.2 m g/dL [facility]: [address] [facility] Normal Total Protein 7.6 gm/dL 6.4-8.2 gm/d L [facility]: [address] [facility] Normal Albumin 4.1 gm/dL 3.2-5.2 gm/dL Felipa l [facility]: [address] [facility] Normal Albumin/globulin Ratio 1.2 1.2-2. 2 [facility]: [address] [facility] 06/25/2020 BMP, Serum or Plasma High Glucose, Fastin g 172 mg/dL 70-100 mg/dL [facility]: 83 0 [facility] High Blood Urea Nitrogen 32 mg/dL 7-18 mg /dL [facility]: [address] [facility] Normal Creatinine for GFR 1.24 mg/dL 0.55-1 .30 mg/dL [facility]: [address] [facility] Normal Glomerular Filtration Rate 59.8 >[address] [facility]: [address] [facility] Low Sodium Level 133 mEq/L 136-145 mEq/L [facility]: [address] [facility] Normal Potassium Serum 4.0 mEq/L 3.5-5.1 mE q/L [facility]: [address] [facility] Normal Chloride Level 98 mEq/L 98-107 mEq/L [facility]: [address] [facility] Normal Carbon Dioxide Level 25 mEq/L 21-32 mEq/L [facility]: [address] [facility] Normal Anion Gap 10 mEq/L 8-16 mEq/L [facility]: [address] [facility] Normal Calcium Level 9.3 mg/dL 8.5-10.1 mg/ dL [facility]: [address] [facility] 06/25/2020 Lipase, Serum or Plasma Low Lipase 59 U/L 7 3-393 U/L [facility]: [address] [facility] 06/25/2020 HbA1C (Hemoglobin a1C), Blood Normal Hemogl obin a1C 8.0 % [facility]: [address] [facility] High Estimated Average Glucose 183 mg/dL 60-110 mg/dL [facility]: [address] [facility] 05/30/2020 Glucose, Fingerstick, Blood High Bedside Glucose 218 mg/dL 70- 105 mg/dL [facility]: 83 0 [facility] 05/30/2020 Glucose, Fingerstick, Blood High Bedside Glucose 347 mg/dL 70- 105 mg/dL [facility]: 83 0 [facility] 05/19/2020 Glucose, Fingerstick, Blood Low Bedside Glucose 56 mg/dL 70-105 mg/dL [facility]: 83 0 [facility] 05/19/2020 CBC W/ Auto Diff Normal White Blood Count 6.8 10 4.0-10.[address] [facility]: 0 [facility] Low Red Blood Count 3.21 10 4.00-5.[address] [facility]: [address] [facility] Low Hemoglobin 8.9 g/dL 12.0-15.5 g/dL F inal [facility]: [address] [facility] Low Hematocrit 28.2 % 36.0-47.0 % [facility]: [address] [place] [address] Normal Mean Corpuscular Volume 87.9 fL 80.0 -96.[address] [facility]: [address] [place] [address] Normal Mean Corpuscular Hemoglobin 27.7 pg 27.0-33.[address] [facility]: [address] [place] [address] Low Mean Corpuscular HGB Conc 31.6 g/dL 32.0-36.5 g/dL [facility]: [address] [place] [address] High Red Cell Distribution Width 16.9 % 1 1.5-14.5 % [facility]: [address] [place] [address] Normal Platelet Count, Automated 261 10 150 -[address] [facility]: 0 [facility] Normal Neutrophils % 55.1 % 36.0-66.0 % [facility]: [address] [facility] Normal Lymph % 34.4 % 24.0-44.0 % [facility]: [address] [facility] High Lynn % 6.7 % 2.0-8.0 % [facility]: [address] [facility] Normal Eos % 2.8 % 0.0-3.0 % [facility]: 0 [facility] Normal Baso % 0.7 % 0.0-1.0 % [facility]: 0 [facility] Normal Immature Granulocyte % 0.3 % 0-3.0 % [facility]: [address] [place] [address] Normal Nucleated Red Blood Cell % 0.0 % 0- 0 % [facility]: [address] [facility] Normal Neutrophils # 3.8 10 1.5-8.5 10 Felipa [facility]: [address] [facility] Normal Lymph # 2.4 10 1.5-5.0 10 [facility]: [address] [facility] Normal Lynn # 0.5 10 0.0-0.8 10 [facility]: [address] [facility] Normal Eos # 0.2 10 0.0-0.5 10 [facility]: [address] [facility] Normal Baso # 0.1 10 0.0-0.2 10 [facility]: [address] [facility] 05/19/2020 Istat Chem8+ Panel Low Istat HCT 30.0 % 38. 0-51.0 % [facility]: [address] [facility] High Istat Glucose 252 mg/dL 70-105 mg/dL [facility]: [address] [facility] Normal Istat Sodium 141 mEq/L 136-145 mEq/L [facility]: [address] [facility] Normal Istat Potassium 3.8 mEq/L 3.5-5.1 mE q/L [facility]: [address] [facility] Normal Istat Ca++ 5.3 mg/dL 4.5-5.3 mg/dL [facility]: [address] [facility] Normal Istat Chloride 104 mEq/L 98-109 mEq/ L [facility]: [address] [facility] Normal Istat CO2 26.0 mm/L 23.0-27.0 mm/L [facility]: [address] [facility] Normal Istat BUN 18 mg/dL 8-26 mg/dL [facility]: [address] [facility] Normal Istat Creatinine 1.1 mg/dL 0.6-1.3 m g/dL [facility]: [address] [facility] 05/19/2020 Istat ABG Low Istat pH 7.310 units 7.350-7. [address] [facility]: [address] [facility] High Istat pCO2 50.2 mmHg 35.0-45.[address] [facility]: [address] [facility] High Istat pO2 107.0 mmHg 80-105 mmHg [facility]: [address] [facility] Normal Istat TCO2 27.0 mmol/L 23.0-27.0 mmo l/L [facility]: [address] [facility] Normal Istat HCO3 25.3 mmol/L 22.0-26.0 mmo l/L [facility]: [address] [facility] Normal Istat Base Excess -1.0 mmol/L -2.0-3 .0 mmol/L [facility]: [address] [facility] Normal Istat So2 98 % 95-98 % [facility]: [address] [facility] 05/19/2020 Talisha Covid Antigen Normal Talisha Covid Anti gen negative negative [facility]: 83 0 [facility] 05/19/2020 HbA1C (Hemoglobin a1C), Blood Normal Hemogl obin a1C 8.7 % [facility]: [address] [facility] High Estimated Average Glucose 203 mg/dL 60-110 mg/dL [facility]: [address] [facility] 05/19/2020 Hepatic Function Panel, Serum Normal AST/SG OT 12 U/L 7-37 U/L [facility]: [address] [facility] Normal ALT/SGPT 13 U/L 12-78 U/L [facility]: [address] [facility] Normal Alkaline Phosphatase 66 U/L 45-117 U /L [facility]: [address] [facility] Normal Bilirubin,total 0.3 mg/dL 0.2-1.0 mg /dL [facility]: [address] [facility] Normal Bilirubin,direct 0.1 mg/dL 0.0-0.2 m g/dL [facility]: [address] [facility] Normal Total Protein 6.8 gm/dL 6.4-8.2 gm/d L [facility]: [address] [facility] Normal Albumin 3.7 gm/dL 3.2-5.2 gm/dL Felipa l [facility]: [address] [facility] Normal Albumin/globulin Ratio 1.2 1.2-2. 2 [facility]: [address] [facility] 05/19/2020 BMP, Serum or Plasma High Glucose, Fastin g 258 mg/dL 70-100 mg/dL [facility]: 83 0 [facility] Normal Blood Urea Nitrogen 18 mg/dL 7-18 mg /dL [facility]: 0 [facility] Normal Creatinine for GFR 1.29 mg/dL 0.55-1 .30 mg/dL [facility]: 0 [facility] Low Glomerular Filtration Rate 57.1 >[address] [facility]: [address] [facility] Normal Sodium Level 142 mEq/L 136-145 mEq/L [facility]: 0 [facility] Normal Potassium Serum 4.0 mEq/L 3.5-5.1 mE q/L [facility]: [address] [facility] Normal Chloride Level 106 mEq/L 98-107 mEq/ L [facility]: [address] [facility] Normal Carbon Dioxide Level 27 mEq/L 21-32 mEq/L [facility]: [address] [facility] Normal Anion Gap 9 mEq/L 8-16 mEq/L [facility]: 0 [facility] Normal Calcium Level 9.3 mg/dL 8.5-10.1 mg/ dL [facility]: 0 [facility] 05/19/2020 Acetone/ketone Normal Acetone/ketone 0.70 mg/dL <2.81 mg/dL [facility]: [address] [facility] 05/19/2020 Lipase, Serum or Plasma Normal Lipase 97 U/L 7 3-393 U/L [facility]: [address] [facility] 05/19/2020 Glucose, Fingerstick, Blood High Bedside Glucose 132 mg/dL 70- 105 mg/dL [facility]: 83 0 [facility] 05/19/2020 Respiratory Virus Panel NASOPHARYNX No observ ation recorded. [facility]: [address] [facility] 05/19/2020 Glucose, Fingerstick, Blood High Bedside Glucose 147 mg/dL 70- 105 mg/dL [facility]: 83 0 [facility] 05/19/2020 UA W/ Reflex to Culture Normal Appearance, Urine Rfx clear clear [facility]: 83 0 [facility] Normal Color, Urine Rfx straw yellow [facility]: [address] [facility] Normal pH,urine Rfx 7.0 units 5.0-9.[address] [facility]: 8[address] [facility] Normal Specific Blair Ur Auto Rfx 1.010 1.002-1.035 [facility]: [address] [facility] Normal Protein, Urine Auto Rfx negative mg/ dL negative mg/dL [facility]: [address] [facility] High Glucose, Urine (UA) Auto Rfx 3+ mg/d L negative mg/dL [facility]: [address] [facility] Normal Ketone, Urine Auto Rfx negative mg/d L negative mg/dL [facility]: [address] [facility] Normal Urobilinogen, Urine Auto Rfx 0.2 mg/ dL 0.0-2.0 mg/dL [facility]: [address] [facility] Normal Bilirubin, Urine Auto Rfx negative n egative [facility]: [address] [facility] Normal Nitrite, Urine Auto Rfx negative neg ative [facility]: [address] [facility] Normal Leukocyte Esterase Ur Auto Rfx negat brian negative [facility]: [address] [facility] Normal Blood, Urine Blood Rfx negative nega tive [facility]: [address] [facility] Normal WBC, Urine Auto Rfx 0 /hpf 0-3 /hpf [facility]: [address] [facility] Normal RBC, Urine Auto Rfx 2 /hpf 0-3 /hpf [facility]: [address] [facility] Normal Bacteria, Urine Auto Rfx negative ne gative [facility]: [address] [facility] Normal Squam Epithelial Cell Ur Aurfx 1 /hp f 0-6 /hpf [facility]: [address] [facility] Normal Hyaline Cast, Urine Auto Rfx 0 /lpf 0-1 /lpf [facility]: [address] [facility] 05/19/2020 Drug Screen, Urine Normal Amphetamines Leve l Urine negative negative [facility]: 83 0 [facility] Normal Barbiturates Urine negative negative [facility]: [address] [facility] Normal Benzodiazepines Urine negative negat brian [facility]: [address] [facility] High Cannabinoids Urine positive negative [facility]: [address] [facility] Normal Cocaine Metabolite Urine negative ne gative [facility]: [address] [facility] Normal Methadone Urine negative negative Fi nal [facility]: [address] [facility] Normal Opiates Urine negative negative Felipa l [facility]: [address] [facility] Normal Phencyclidine Urine negative negativ e [facility]: 8[address] [facility] 05/19/2020 Glucose, Fingerstick, Blood High Bedside Glucose 169 mg/dL 70- 105 mg/dL [facility]: 83 0 [facility] 05/19/2020 Glucose, Fingerstick, Blood Normal Bedside Glucose 97 mg/dL 70- 105 mg/dL [facility]: 83 0 [facility] 05/19/2020 Istat Lactate Panic High Istat Lactate 3.26 0.4-2.0 [facility]: [address] [facility] 05/19/2020 Istat Lactate Normal Istat Lactate 0.65 0.4- 2.0 [facility]: [address] [facility] 05/19/2020 Ctni Istat Normal Istat Troponin 0.00 NG/m L 0.00-0.08 NG/mL [facility]: [address] [facility] 05/19/2020 Glucose, Fingerstick, Blood High Bedside Glucose 203 mg/dL 70- 105 mg/dL [facility]: 83 0 [facility] 03/23/2020 Glucose, Fingerstick, Blood High Bedside Glucose 198 mg/dL 70- 105 mg/dL [facility]: 83 0 [facility] 03/23/2020 Glucose, Fingerstick, Blood High Bedside Glucose 279 mg/dL 70- 105 mg/dL [facility]: 83 0 [facility] 03/23/2020 Cbc Normal White Blood Count 5.7 10 4.0-10. [address] [facility]: 0 [facility] Low Red Blood Count 3.11 10 4.00-5.[address] [facility]: [address] [facility] Low Hemoglobin 8.6 g/dL 12.0-15.5 g/dL F inal [facility]: [address] [facility] Low Hematocrit 26.3 % 36.0-47.0 % [facility]: 8[address] [facility] Normal Mean Corpuscular Volume 84.6 fL 80.0 -96.[address] [facility]: 0 [facility] Normal Mean Corpuscular Hemoglobin 27.7 pg 27.0-33.[address] [facility]: 8[address] [facility] Normal Mean Corpuscular HGB Conc 32.7 g/dL 32.0-36.5 g/dL [facility]: 0 [facility] High Red Cell Distribution Width 15.5 % 1 1.5-14.5 % [facility]: [address] [facility] Normal Platelet Count, Automated 218 10 150 -[address] [facility]: [address] [facility] Normal Nucleated Red Blood Cell % 0.0 % 0- 0 % [facility]: 8[address] [facility] 03/23/2020 CMP, Serum or Plasma High Glucose, Fastin g 297 mg/dL 70-100 mg/dL [facility]: 83 0 [facility] Normal Blood Urea Nitrogen 8 mg/dL 7-18 mg/ dL [facility]: 8[address] [facility] Normal Creatinine for GFR 1.16 mg/dL 0.55-1 .30 mg/dL [facility]: 8[address] [facility] Normal Glomerular Filtration Rate > 60.[address] >[address] [facility]: 8[address] [facility] Low Sodium Level 134 mEq/L 136-145 mEq/L [facility]: [address] [facility] D Potassium Serum 4.1 mEq/L 3.5-5.1 mE q/L [facility]: 8[address] [facility] Normal Chloride Level 103 mEq/L 98-107 mEq/ L [facility]: 8[address] [facility] Low Carbon Dioxide Level 19 mEq/L 21-32 mEq/L [facility]: [address] [facility] Normal Anion Gap 12 mEq/L 8-16 mEq/L [facility]: 8[address] [facility] Normal Calcium Level 8.5 mg/dL 8.5-10.1 mg/ dL [facility]: 8[address] [facility] Normal AST/SGOT 13 U/L 7-37 U/L [facility]: [address] [facility] Normal ALT/SGPT 17 U/L 12-78 U/L [facility]: 8[address] [facility] Normal Alkaline Phosphatase 57 U/L 45-117 U /L [facility]: 8[address] [facility] Normal Bilirubin,total 0.4 mg/dL 0.2-1.0 mg /dL [facility]: 8[address] [facility] Low Total Protein 6.2 gm/dL 6.4-8.2 gm/d L [facility]: 830 [facility] Normal Albumin 3.4 gm/dL 3.2-5.2 gm/dL Felipa l [facility]: [address] [facility] Normal Albumin/globulin Ratio 1.2 1.2-2. 2 [facility]: 830 [facility] 03/23/2020 Acetone/ketone High Acetone/ketone > 46. 00 mg/dL <2.81 mg/dL [facility] [facility]: 830 [facility] 03/23/2020 Glucose, Fingerstick, Blood High Bedside Glucose 215 mg/dL 70- 105 mg/dL [facility]: 83 0 [facility] 03/22/2020 Glucose, Fingerstick, Blood Low Bedside Glucose 45 mg/dL 70-105 mg/dL [facility]: 83 0 [facility] 03/22/2020 Glucose, Fingerstick, Blood Normal Bedside Glucose 99 mg/dL 70- 105 mg/dL [facility]: 83 0 [facility] 03/22/2020 Cbc Normal White Blood Count 5.1 10 4.0-[address]. [address] [facility]: [address] [facility] Low Red Blood Count 3.24 10 4.00-5.[address] [facility]: 8[address] [facility] Low Hemoglobin 8.9 g/dL 12.0-15.5 g/dL F inal [facility]: [address] [facility] Low Hematocrit 27.2 % 36.0-47.0 % [facility]: [address] [facility] Normal Mean Corpuscular Volume 84.0 fL 80.0 -96.[address] [facility]: [address] [facility] Normal Mean Corpuscular Hemoglobin 27.5 pg 27.0-33.[address] [facility]: 8[address] [facility] Normal Mean Corpuscular HGB Conc 32.7 g/dL 32.0-36.5 g/dL [facility]: 8[address] [facility] High Red Cell Distribution Width 15.2 % 1 1.5-14.5 % [facility]: [address] [facility] Normal Platelet Count, Automated 214 10 150 -[address] [facility]: [address] [facility] Normal Nucleated Red Blood Cell % 0.0 % 0- 0 % [facility]: [address] [facility] 03/22/2020 Glucose, Fingerstick, Blood High Bedside Glucose 169 mg/dL 70- 105 mg/dL [facility]: 83 0 [facility] 03/22/2020 CMP, Serum or Plasma High Glucose, Fastin g 147 mg/dL 70-100 mg/dL [facility]: 83 0 [facility] Normal Blood Urea Nitrogen 11 mg/dL 7-18 mg /dL [facility]: 8[address] [facility] Normal Creatinine for GFR 1.10 mg/dL 0.55-1 .30 mg/dL [facility]: 8[address] [facility] Normal Glomerular Filtration Rate > 60.0 >[address] [facility]: 8[address] [facility] Normal Sodium Level 139 mEq/L 136-145 mEq/L [facility]: [address] [facility] Panic Low Potassium Serum 3.4 mEq/L 3.5-5.1 mEq/L [facility]: [address] [facility] Normal Chloride Level 107 mEq/L 98-107 mEq/ L [facility]: [address] [facility] Normal Carbon Dioxide Level 22 mEq/L 21-32 mEq/L [facility]: [address] [facility] Normal Anion Gap 10 mEq/L 8-16 mEq/L [facility]: [address] [facility] Low Calcium Level 8.4 mg/dL 8.5-10.1 mg/ dL [facility]: [address] [facility] Normal AST/SGOT 10 U/L 7-37 U/L [facility]: [address] [facility] Normal ALT/SGPT 14 U/L 12-78 U/L [facility]: 8[address] [facility] Normal Alkaline Phosphatase 54 U/L 45-117 U /L [facility]: [address] [facility] Normal Bilirubin,total 0.6 mg/dL 0.2-1.0 mg /dL [facility]: 8[address] [facility] Low Total Protein 5.8 gm/dL 6.4-8.2 gm/d L [facility]: [address] [facility] Low Albumin 3.1 gm/dL 3.2-5.2 gm/dL [facility]: [address] [facility] Low Albumin/globulin Ratio 1.1 1.2-2. 2 [facility]: 8[address] [facility] 03/22/2020 Acetone/ketone High Acetone/ketone 25.32 mg/dL <2.81 mg/dL [facility]: 8[address] [facility] 03/22/2020 Glucose, Fingerstick, Blood High Bedside Glucose 199 mg/dL 70- 105 mg/dL [facility]: 83 0 [facility] 03/22/2020 Glucose, Fingerstick, Blood High Bedside Glucose 209 mg/dL 70- 105 mg/dL [facility]: 83 0 [facility] 03/22/2020 Glucose, Fingerstick, Blood High Bedside Glucose 176 mg/dL 70- 105 mg/dL [facility]: 83 0 [facility] 03/21/2020 CMP, Serum or Plasma High Glucose, Fastin g 380 mg/dL 70-100 mg/dL [facility]: 83 0 [facility] Normal Blood Urea Nitrogen 17 mg/dL 7-18 mg /dL [facility]: 8[address] [facility] High Creatinine for GFR 1.43 mg/dL 0.55-1 .30 mg/dL [facility]: 8[address] [facility] Low Glomerular Filtration Rate 50.7 >[address] [facility]: 8[address] [facility] Low Sodium Level 133 mEq/L 136-145 mEq/L [facility]: 8[address] [facility] Normal Potassium Serum 4.3 mEq/L 3.5-5.1 mE q/L [facility]: 830 [facility] Normal Chloride Level 104 mEq/L 98-107 mEq/ L [facility]: 8[address] [facility] Low Carbon Dioxide Level 14 mEq/L 21-32 mEq/L [facility]: 8[address] [facility] Normal Anion Gap 15 mEq/L 8-16 mEq/L [facility]: 0 [facility] Normal Calcium Level 8.8 mg/dL 8.5-10.1 mg/ dL [facility]: 8[address] [facility] Normal AST/SGOT 9 U/L 7-37 U/L [facility]: [address] [facility] Normal ALT/SGPT 14 U/L 12-78 U/L [facility]: 0 [facility] Normal Alkaline Phosphatase 68 U/L 45-117 U /L [facility]: 0 [facility] Normal Bilirubin,total 0.5 mg/dL 0.2-1.0 mg /dL [facility]: 830 [facility] Normal Total Protein 6.4 gm/dL 6.4-8.2 gm/d L [facility]: 8[address] [facility] Normal Albumin 3.3 gm/dL 3.2-5.2 gm/dL [facility]: 0 [facility] Low Albumin/globulin Ratio 1.1 1.2-2. 2 [facility]: 0 [facility] 03/21/2020 Acetone/ketone High Acetone/ketone > 46. 00 mg/dL <2.81 mg/dL [facility]: 0 [facility] 03/21/2020 Glucose, Fingerstick, Blood High Bedside Glucose 157 mg/dL 70- 105 mg/dL Final [facility]: 83 0 [facility] 03/21/2020 Glucose, Fingerstick, Blood CRITICAL LOW Bedside Glucose 37 mg/dL 70-105 mg/dL [facility] nter: 830 [facility] 03/21/2020 Glucose, Fingerstick, Blood CRITICAL LOW Bedside Glucose 26 mg/dL 70-105 mg/dL Final [facility] nter: 830 [facility] 03/21/2020 Glucose, Fingerstick, Blood CRITICAL LOW Bedside Glucose 32 mg/dL 70-105 mg/dL [facility] nter: 830 [facility] 03/21/2020 Glucose, Fingerstick, Blood High Bedside Glucose 110 mg/dL 70- 105 mg/dL [facility]: 83 0 [facility] 03/21/2020 Bedside Glucose Confirmation Normal Bedside Glucose Confirmation 117 mg/dL less than 200 mg/dL [facility]: 8[address] [facility] 03/21/2020 Glucose, Fingerstick, Blood Low Bedside Glucose 42 mg/dL 70-105 mg/dL [facility]: 83 0 [facility] 03/21/2020 Glucose, Fingerstick, Blood CRITICAL LOW Bedside Glucose 39 mg/dL 70-105 mg/dL [facility] nter: 830 [facility] 03/21/2020 Glucose, Fingerstick, Blood Normal Bedside Glucose 104 mg/dL 70-105 mg/dL [facility]: 83 0 [facility] 03/20/2020 Glucose, Fingerstick, Blood High Bedside Glucose 352 mg/dL 70- 105 mg/dL [facility]: 83 0 [facility] 03/20/2020 Cbc High White Blood Count 11.3 10 4.0-[address] [facility]: 8[address] [facility] Low Red Blood Count 3.36 10 4.00-5.[address] [facility]: 8[address] [facility] Low Hemoglobin 9.3 g/dL 12.0-15.5 g/dL F inal [facility]: [address] [facility] Low Hematocrit 29.1 % 36.0-47.0 % [facility]: 8[address] [facility] Normal Mean Corpuscular Volume 86.6 fL 80.0 -96.[address] [facility]: 830 [facility] Normal Mean Corpuscular Hemoglobin 27.7 pg 27.0-33.[address] [facility]: 830 [facility] Normal Mean Corpuscular HGB Conc 32.0 g/dL 32.0-36.5 g/dL [facility]: 0 [facility] High Red Cell Distribution Width 15.7 % 1 1.5-14.5 % [facility]: [address] [place] [address] Normal Platelet Count, Automated 239 10 150 -[address] [facility]: 0 [facility] Normal Nucleated Red Blood Cell % 0.0 % 0- 0 % [facility]: 830 [facility] 03/20/2020 Glucose, Fingerstick, Blood High Bedside Glucose 352 mg/dL 70- 105 mg/dL [facility]: 83 0 [facility] 03/20/2020 Acetone/ketone High Acetone/ketone > 46. 00 mg/dL <2.81 mg/dL [facility]: 0 [facility] 03/20/2020 CMP, Serum or Plasma High Glucose, Fastin g 182 mg/dL 70-100 mg/dL [facility]: 83 0 [facility] High Blood Urea Nitrogen 19 mg/dL 7-18 mg /dL [facility]: 0 [facility] High Creatinine for GFR 1.41 mg/dL 0.55-1 .30 mg/dL [facility]: 0 [facility] Low Glomerular Filtration Rate 51.6 >[address] [facility]: 830 [facility] Normal Sodium Level 138 mEq/L 136-145 mEq/L [facility]: 830 [facility] Normal Potassium Serum 3.8 mEq/L 3.5-5.1 mE q/L [facility]: 830 [facility] High Chloride Level 110 mEq/L 98-107 mEq/ L [facility]: 830 [facility] Low Carbon Dioxide Level 15 mEq/L 21-32 mEq/L [facility]: 8[address] [facility] Normal Anion Gap 13 mEq/L 8-16 mEq/L [facility]: 830 [facility] Normal Calcium Level 9.2 mg/dL 8.5-10.1 mg/ dL [facility]: 830 [facility] Normal AST/SGOT 10 U/L 7-37 U/L [facility]: [address] [facility] Normal ALT/SGPT 17 U/L 12-78 U/L [facility]: 8[address] [facility] Normal Alkaline Phosphatase 60 U/L 45-117 U /L [facility]: 830 [facility] Normal Bilirubin,total 0.4 mg/dL 0.2-1.0 mg /dL [facility]: 830 [facility] Low Total Protein 6.2 gm/dL 6.4-8.2 gm/d L [facility]: 8[address] [facility] D Albumin 3.3 gm/dL 3.2-5.2 gm/dL [facility]: [address] [facility] Low Albumin/globulin Ratio 1.1 1.2-2. 2 [facility]: 8[address] [facility] 03/20/2020 Glucose, Fingerstick, Blood High Bedside Glucose 138 mg/dL 70- 105 mg/dL [facility]: 83 0 [facility] 03/20/2020 Glucose, Fingerstick, Blood High Bedside Glucose 144 mg/dL 70- 105 mg/dL [facility]: 83 0 [facility] 03/20/2020 Glucose, Fingerstick, Blood High Bedside Glucose 163 mg/dL 70- 105 mg/dL [facility]: 83 0 [facility] 03/20/2020 Glucose, Fingerstick, Blood High Bedside Glucose 204 mg/dL 70- 105 mg/dL [facility]: 83 0 [facility] 03/19/2020 Glucose, Fingerstick, Blood High Bedside Glucose 343 mg/dL 70- 105 mg/dL [facility]: 83 0 [facility] 03/19/2020 Glucose, Fingerstick, Blood High Bedside Glucose 137 mg/dL 70- 105 mg/dL [facility]: 83 0 [facility] 03/19/2020 BMP, Serum or Plasma High Glucose, Fastin g 137 mg/dL 70-100 mg/dL [facility]: 83 0 [facility] High Blood Urea Nitrogen 21 mg/dL 7-18 mg /dL [facility]: 830 [facility] High Creatinine for GFR 1.42 mg/dL 0.55-1 .30 mg/dL [facility]: 830 [facility] Low Glomerular Filtration Rate 51.1 >[address] [facility]: 830 [facility] Normal Sodium Level 139 mEq/L 136-145 mEq/L [facility]: 830 [facility] Normal Potassium Serum 3.7 mEq/L 3.5-5.1 mE q/L [facility]: 830 [facility] High Chloride Level 112 mEq/L 98-107 mEq/ L [facility]: 830 [facility] Low Carbon Dioxide Level 19 mEq/L 21-32 mEq/L [facility]: 8[address] [facility] Normal Anion Gap 8 mEq/L 8-16 mEq/L [facility]: 830 [facility] Normal Calcium Level 8.6 mg/dL 8.5-10.1 mg/ dL [facility]: 830 [facility] 03/19/2020 Acetone/ketone High Acetone/ketone 33.70 mg/dL <2.81 mg/dL [facility]: 830 [facility] 03/19/2020 Glucose, Fingerstick, Blood High Bedside Glucose 136 mg/dL 70- 105 mg/dL [facility]: 83 0 [facility] 03/19/2020 Glucose, Fingerstick, Blood High Bedside Glucose 119 mg/dL 70- 105 mg/dL [facility]: 83 0 [facility] 03/18/2020 Glucose, Fingerstick, Blood High Bedside Glucose 282 mg/dL 70- 105 mg/dL [facility]: 83 0 [facility] 03/18/2020 BMP, Serum or Plasma High Glucose, Fastin g 292 mg/dL 70-100 mg/dL [facility]: 83 0 [facility] High Blood Urea Nitrogen 36 mg/dL 7-18 mg /dL [facility]: 830 [facility] High Creatinine for GFR 1.39 mg/dL 0.55-1 .30 mg/dL [facility]: 830 [facility] Low Glomerular Filtration Rate 52.4 >[address] [facility]: 830 [facility] Normal Sodium Level 138 mEq/L 136-145 mEq/L [facility]: 830 [facility] Normal Potassium Serum 4.3 mEq/L 3.5-5.1 mE q/L [facility]: 830 [facility] Normal Chloride Level 106 mEq/L 98-107 mEq/ L [facility] 830 [facility] Low Carbon Dioxide Level 16 mEq/L 21-32 mEq/L [facility]: 830 [facility] Normal Anion Gap 16 mEq/L 8-16 mEq/L [facility]: 830 [facility] Low Calcium Level 8.3 mg/dL 8.5-10.1 mg/ dL [facility]: 830 [facility] 03/18/2020 Glucose, Fingerstick, Blood Low Bedside Glucose 57 mg/dL 70-105 mg/dL [facility]: 83 0 [facility] 03/18/2020 Cbc Normal White Blood Count 9.7 10 4.0-10. [address] [facility]: 0 [facility] Low Red Blood Count 3.35 10 4.00-5.[address] [facility]: 830 [facility] Low Hemoglobin 9.4 g/dL 12.0-15.5 g/dL F inal [facility]: 0 [facility] Low Hematocrit 28.8 % 36.0-47.0 % [facility]: [address] [place] [address] Normal Mean Corpuscular Volume 86.0 fL 80.0 -96.[address] [facility]: [address] [place] [address] Normal Mean Corpuscular Hemoglobin 28.1 pg 27.0-33.[address] [facility]: [address] [place] [address] Normal Mean Corpuscular HGB Conc 32.6 g/dL 32.0-36.5 g/dL [facility]: [address] [place] [address] High Red Cell Distribution Width 15.9 % 1 1.5-14.5 % [facility]: [address] [place] [address] Normal Platelet Count, Automated 270 10 150 -[address] [facility]: 0 [facility] Normal Nucleated Red Blood Cell % 0.0 % 0- 0 % [facility]: 0 [facility] 03/18/2020 BMP, Serum or Plasma Low Glucose, Fastin g 67 mg/dL 70-100 mg/dL [facility]: 83 0 [facility] High Blood Urea Nitrogen 30 mg/dL 7-18 mg /dL [facility]: [address] [place] [address] High Creatinine for GFR 1.33 mg/dL 0.55-1 .30 mg/dL [facility]: [address] [place] [address] Low Glomerular Filtration Rate 55.2 >[address] [facility]: 0 [facility] Normal Sodium Level 140 mEq/L 136-145 mEq/L [facility]: 0 [facility] Normal Potassium Serum 3.9 mEq/L 3.5-5.1 mE q/L [facility]: 830 [facility] High Chloride Level 109 mEq/L 98-107 mEq/ L [facility]: 830 [facility] Normal Carbon Dioxide Level 22 mEq/L 21-32 mEq/L [facility]: 830 [facility] Normal Anion Gap 9 mEq/L 8-16 mEq/L [facility]: 830 [facility] Low Calcium Level 8.0 mg/dL 8.5-10.1 mg/ dL [facility]: 830 [facility] 03/18/2020 Glucose, Fingerstick, Blood High Bedside Glucose 195 mg/dL 70- 105 mg/dL [facility]: 83 0 [facility] 03/18/2020 Glucose, Fingerstick, Blood Normal Bedside Glucose 94 mg/dL 70- 105 mg/dL [facility]: 83 0 [facility] 03/18/2020 BMP, Serum or Plasma High Glucose, Fastin g 116 mg/dL 70-100 mg/dL [facility]: 83 0 [facility] High Blood Urea Nitrogen 26 mg/dL 7-18 mg /dL [facility]: 830 [facility] Normal Creatinine for GFR 1.25 mg/dL 0.55-1 .30 mg/dL [facility]: 830 [facility] Normal Glomerular Filtration Rate 59.[address] >[address] [facility]: 830 [facility] Normal Sodium Level 140 mEq/L 136-145 mEq/L [facility]: 830 [facility] Normal Potassium Serum 3.6 mEq/L 3.5-5.1 mE q/L [facility]: 830 [facility] High Chloride Level 112 mEq/L 98-107 mEq/ L [facility]: 830 [facility] Low Carbon Dioxide Level 18 mEq/L 21-32 mEq/L [facility]: 830 [facility] Normal Anion Gap 10 mEq/L 8-16 mEq/L [facility]: 830 [facility] Low Calcium Level 7.7 mg/dL 8.5-10.1 mg/ dL [facility]: 830 [facility] 03/18/2020 Glucose, Fingerstick, Blood High Bedside Glucose 199 mg/dL 70- 105 mg/dL [facility]: 83 0 [facility] 03/17/2020 Glucose, Fingerstick, Blood High Bedside Glucose 329 mg/dL 70- 105 mg/dL [facility]: 83 0 [facility] 03/17/2020 Glucose, Fingerstick, Blood High Bedside Glucose 195 mg/dL 70- 105 mg/dL [facility]: 83 0 [facility] 03/17/2020 BMP, Serum or Plasma High Glucose, Fastin g 224 mg/dL 70-100 mg/dL [facility]: 83 0 [facility] High Blood Urea Nitrogen 39 mg/dL 7-18 mg /dL [facility]: 830 [facility] High Creatinine for GFR 1.46 mg/dL 0.55-1 .30 mg/dL [facility]: 830 [facility] Low Glomerular Filtration Rate 49.5 >[address] [facility]: 830 [facility] Normal Sodium Level 141 mEq/L 136-145 mEq/L [facility]: 830 [facility] Normal Potassium Serum 3.6 mEq/L 3.5-5.1 mE q/L [facility]: 830 [facility] High Chloride Level 108 mEq/L 98-107 mEq/ L [facility]: 830 [facility] Low Carbon Dioxide Level 20 mEq/L 21-32 mEq/L [facility]: 830 [facility] Normal Anion Gap 13 mEq/L 8-16 mEq/L [facility]: 830 [facility] Panic Low Calcium Level 7.6 mg/dL 8.5-10.1 mg/dL [facility]: 830 [facility] 03/17/2020 SARS CoV 2 RNA (COVID-19), QL, early childhood education coordinator-PCR, Respirat ory Specimen Normal Sars Covid-[address] [facility]: 8[address] [facility] 03/17/2020 Glucose, Fingerstick, Blood High Bedside Glucose 227 mg/dL 70- 105 mg/dL [facility]: 83 0 [facility] 02/19/2020 Cbc Normal White Blood Count 5.8 10 4.0-10. [address] [facility]: 830 [facility] Low Red Blood Count 3.11 10 4.00-5.[address] [facility]: 830 [facility] Low Hemoglobin 8.5 g/dL 12.0-15.5 g/dL F inal [facility]: 830 [facility] Low Hematocrit 26.6 % 36.0-47.0 % [facility]: 830 [facility] Normal Mean Corpuscular Volume 85.5 fL 80.0 -96.[address] [facility]: 830 [facility] Normal Mean Corpuscular Hemoglobin 27.3 pg 27.0-33.[address] [facility]: 830 [facility] Normal Mean Corpuscular HGB Conc 32.0 g/dL 32.0-36.5 g/dL [facility]: 830 [facility] High Red Cell Distribution Width 14.7 % 1 1.5-14.5 % [facility]: 830 [facility] Normal Platelet Count, Automated 256 10 150 -[address] [facility]: 830 [facility] Normal Nucleated Red Blood Cell % 0.0 % 0- 0 % [facility]: 830 [facility] 02/19/2020 BMP, Serum or Plasma High Glucose, Fastin g 139 mg/dL 70-100 mg/dL [facility]: 83 0 [facility] High Blood Urea Nitrogen 21 mg/dL 7-18 mg /dL [facility]: 830 [facility] Normal Creatinine for GFR 1.14 mg/dL 0.55-1 .30 mg/dL [facility]: 0 [facility] Normal Glomerular Filtration Rate > 60.[address] >[address] [facility]: 830 [facility] Normal Sodium Level 138 mEq/L 136-145 mEq/L [facility]: 830 [facility] Normal Potassium Serum 3.6 mEq/L 3.5-5.1 mE q/L [facility]: 830 [facility] High Chloride Level 109 mEq/L 98-107 mEq/ L [facility]: 830 [facility] Normal Carbon Dioxide Level 25 mEq/L 21-32 mEq/L [facility]: 830 [facility] Low Anion Gap 4 mEq/L 8-16 mEq/L [facility]: 0 [facility] Low Calcium Level 8.4 mg/dL 8.5-10.1 mg/ dL [facility]: 830 [facility] 02/19/2020 Glucose, Fingerstick, Blood High Bedside Glucose 180 mg/dL 70- 105 mg/dL [facility]: 83 0 [facility] 02/18/2020 Glucose, Fingerstick, Blood High Bedside Glucose 162 mg/dL 70- 105 mg/dL [facility]: 83 0 [facility] 02/18/2020 Glucose, Fingerstick, Blood High Bedside Glucose 139 mg/dL 70- 105 mg/dL [facility]: 83 0 [facility] 02/18/2020 Glucose, Fingerstick, Blood High Bedside Glucose 135 mg/dL 70- 105 mg/dL [facility]: 83 0 [facility] 02/18/2020 BMP, Serum or Plasma High Glucose, Fastin g 135 mg/dL 70-100 mg/dL [facility]: 83 0 [facility] High Blood Urea Nitrogen 41 mg/dL 7-18 mg /dL [facility]: 830 [facility] High Creatinine for GFR 1.64 mg/dL 0.55-1 .30 mg/dL [facility]: 830 [facility] Low Glomerular Filtration Rate 43.[address] >[address] [facility]: 830 [facility] Normal Sodium Level 139 mEq/L 136-145 mEq/L [facility]: 830 [facility] Normal Potassium Serum 3.7 mEq/L 3.5-5.1 mE q/L [facility]: 830 [facility] Normal Chloride Level 107 mEq/L 98-107 mEq/ L [facility]: 830 [facility] Normal Carbon Dioxide Level 25 mEq/L 21-32 mEq/L [facility]: 830 [facility] Low Anion Gap 7 mEq/L 8-16 mEq/L [facility]: 830 [facility] Low Calcium Level 8.2 mg/dL 8.5-10.1 mg/ dL [facility]: 830 [facility] 02/18/2020 Phosphorus Level Panic Low Phosphorus Level 2.1 mg/dL 2.5-4.9 mg/dL [facility]: 83 0 [facility] 02/18/2020 Glucose, Fingerstick, Blood High Bedside Glucose 133 mg/dL 70- 105 mg/dL [facility]: 83 0 [facility] 02/18/2020 Glucose, Fingerstick, Blood Normal Bedside Glucose 101 mg/dL 70-105 mg/dL [facility]: 83 0 [facility] 02/18/2020 Glucose, Fingerstick, Blood Normal Bedside Glucose 82 mg/dL 70- 105 mg/dL [facility]: 83 0 [facility] 02/18/2020 Glucose, Fingerstick, Blood High Bedside Glucose 122 mg/dL 70- 105 mg/dL [facility]: 83 0 [facility] 02/18/2020 Cbc Normal White Blood Count 6.9 10 4.0-10. [address] [facility]: 830 [facility] Low Red Blood Count 3.39 10 4.00-5.[address] [facility]: 830 [facility] Low Hemoglobin 9.6 g/dL 12.0-15.5 g/dL F inal [facility]: 830 [facility] Low Hematocrit 28.7 % 36.0-47.0 % [facility]: 830 [facility] Normal Mean Corpuscular Volume 84.7 fL 80.0 -96.[address] [facility]: 830 [facility] Normal Mean Corpuscular Hemoglobin 28.3 pg 27.0-33.[address] [facility]: 830 [facility] Normal Mean Corpuscular HGB Conc 33.4 g/dL 32.0-36.5 g/dL [facility]: [address] [place] [address] High Red Cell Distribution Width 14.8 % 1 1.5-14.5 % [facility]: [address] [place] [address] Normal Platelet Count, Automated 300 10 150 -[address] [facility]: 0 [facility] Normal Nucleated Red Blood Cell % 0.0 % 0- 0 % [facility]: 830 [facility] 02/18/2020 Glucose, Fingerstick, Blood High Bedside Glucose 156 mg/dL 70- 105 mg/dL [facility]: 83 0 [facility] 02/18/2020 BMP, Serum or Plasma High Glucose, Fastin g 137 mg/dL 70-100 mg/dL [facility]: 83 0 [facility] High Blood Urea Nitrogen 36 mg/dL 7-18 mg /dL [facility]: 0 [facility] High Creatinine for GFR 1.35 mg/dL 0.55-1 .30 mg/dL [facility]: [address] [place] [address] Low Glomerular Filtration Rate 54.2 >[address] [facility]: 0 [facility] Normal Sodium Level 140 mEq/L 136-145 mEq/L [facility]: 0 [facility] Normal Potassium Serum 4.2 mEq/L 3.5-5.1 mE q/L [facility]: 830 [facility] High Chloride Level 109 mEq/L 98-107 mEq/ L [facility]: 830 [facility] Normal Carbon Dioxide Level 23 mEq/L 21-32 mEq/L [facility]: 830 [facility] Normal Anion Gap 8 mEq/L 8-16 mEq/L [facility]: 830 [facility] Low Calcium Level 8.4 mg/dL 8.5-10.1 mg/ dL [facility]: 830 [facility] 02/18/2020 Phosphorus Level Low Phosphorus Level 2 .0 mg/dL 2.5-4.9 mg/dL [facility]: 830 [facility] 02/18/2020 Glucose, Fingerstick, Blood High Bedside Glucose 123 mg/dL 70- 105 mg/dL [facility]: 83 0 [facility] 02/18/2020 Glucose, Fingerstick, Blood High Bedside Glucose 112 mg/dL 70- 105 mg/dL [facility]: 83 0 [facility] 02/18/2020 BMP, Serum or Plasma High Glucose, Fastin g 199 mg/dL 70-100 mg/dL [facility]: 83 0 [facility] High Blood Urea Nitrogen 32 mg/dL 7-18 mg /dL [facility]: 830 [facility] High Creatinine for GFR 1.38 mg/dL 0.55-1 .30 mg/dL [facility]: 830 [facility] Low Glomerular Filtration Rate 52.9 >[address] [facility]: 830 [facility] Normal Sodium Level 139 mEq/L 136-145 mEq/L [facility]: 830 [facility] Normal Potassium Serum 3.8 mEq/L 3.5-5.1 mE q/L [facility]: 830 [facility] High Chloride Level 109 mEq/L 98-107 mEq/ L [facility]: 830 [facility] Normal Carbon Dioxide Level 25 mEq/L 21-32 mEq/L Final [facility]: 830 [facility] Low Anion Gap 5 mEq/L 8-16 mEq/L [facility]: 830 [facility] Low Calcium Level 8.2 mg/dL 8.5-10.1 mg/ dL [facility]: 830 [facility] 02/18/2020 Phosphorus Level Panic Low Phosphorus Level 1.4 mg/dL 2.5-4.9 mg/dL [facility]: 83 0 [facility] 02/18/2020 Glucose, Fingerstick, Blood High Bedside Glucose 182 mg/dL 70- 105 mg/dL [facility]: 83 0 [facility] 02/18/2020 Glucose, Fingerstick, Blood High Bedside Glucose 199 mg/dL 70- 105 mg/dL [facility]: 83 0 [facility] 02/18/2020 Glucose, Fingerstick, Blood High Bedside Glucose 112 mg/dL 70- 105 mg/dL [facility]: 83 0 [facility] 02/18/2020 Glucose, Fingerstick, Blood Low Bedside Glucose 40 mg/dL 70-105 mg/dL [facility]: 83 0 [facility] 02/18/2020 Glucose, Fingerstick, Blood Low Bedside Glucose 67 mg/dL 70-105 mg/dL [facility]: 83 0 [facility] 02/17/2020 Istat Chem8+ Panel Low Istat HCT 37.0 % 38. 0-51.0 % [facility]: 830 [facility] High Istat Glucose 359 mg/dL 70-105 mg/dL [facility]: 830 [facility] Low Istat Sodium 127 mEq/L 136-145 mEq/L [facility]: 830 [facility] Panic High Istat Potassium 7.8 mEq/L 3.5-5. 1 mEq/L [facility]: 830 [facility] Low Istat Ca++ 3.8 mg/dL 4.5-5.3 mg/dL [facility]: 0 [facility] Low Istat Chloride 96 mEq/L 98-109 mEq/L [facility]: [address] [place] [address] Low Istat CO2 21.0 mm/L 23.0-27.0 mm/L [facility]: [address] [place] [address] High Istat BUN 70 mg/dL 8-26 mg/dL [facility]: [address] [place] [address] High Istat Creatinine 1.6 mg/dL 0.6-1.3 m g/dL [facility]: [address] [place] [address] 02/17/2020 CBC W/ Auto Diff Normal White Blood Count 9.6 10 4.0-10.[address] [facility]: [address] [place] [address] Low Red Blood Count 3.98 10 4.00-5.[address] [facility]: [address] [place] [address] Low Hemoglobin 11.0 g/dL 12.0-15.5 g/dL [facility]: [address] [place] [address] Low Hematocrit 33.8 % 36.0-47.0 % [facility]: [address] [place] [address] Normal Mean Corpuscular Volume 84.9 fL 80.0 -96.[address] [facility]: [address] [place] [address] Normal Mean Corpuscular Hemoglobin 27.6 pg 27.0-33.[address] [facility]: [address] [place] [address] Normal Mean Corpuscular HGB Conc 32.5 g/dL 32.0-36.5 g/dL [facility]: [address] [place] [address] High Red Cell Distribution Width 15.0 % 1 1.5-14.5 % [facility]: [address] [place] [address] Normal Platelet Count, Automated 333 10 150 -[address] [facility]: [address] [place] [address] High Neutrophils % 78.2 % 36.0-66.0 % Fin [facility]: 830 [facility] Low Lymph % 14.8 % 24.0-44.0 % Final [facility]: 830 [facility] High Lynn % 6.1 % 0.0-5.0 % [facility]: 830 [facility] Normal Eos % 0.1 % 0.0-3.0 % [facility]: 830 [facility] Normal Baso % 0.5 % 0.0-1.0 % [facility]: 830 [facility] Normal Immature Granulocyte % 0.3 % 0-3.0 % [facility]: 830 [facility] Normal Nucleated Red Blood Cell % 0.0 % 0- 0 % [facility]: 830 [facility] Normal Neutrophils # 7.5 10 1.5-8.5 10 [facility]: 830 [facility] Low Lymph # 1.4 10 1.5-5.0 10 [facility]: 830 [facility] Normal Lynn # 0.6 10 0.0-0.8 10 [facility]: 830 [facility] Normal Eos # 0.0 10 0.0-0.5 10 [facility]: 830 [facility] Normal Baso # 0.1 10 0.0-0.2 10 [facility]: 830 [facility] 02/17/2020 Gas Panel, Venous Blood Normal Venous pH 7 .371 units 7.330- 7.[address] [facility]: 83 0 [facility] Low Venous Partial Pressure CO2 30.6 mmH g 38.0-50.[address] [facility]: 0 [facility] High Venous Partial Pressure O2 83.8 mmHg 30.0-50.[address] [facility]: 830 [facility] Low Venous Total CO2 18.3 mEq/L 24.0-28. 0 mEq/L [facility]: 830 [facility] Low Venous HCO3 17.3 mEq/L 23.0-27.0 mEq /L [facility]: 830 [facility] Low Venous Base Excess -6.8 -2.0-2.0 [facility]: 830 [facility] Normal Venous Standard HCO3 18.9 mEq/L [facility]: 830 [facility] High Venous O2 Saturation 96.0 % 60.0-80. 0 % [facility]: 830 [facility] 02/17/2020 Gas Panel, Venous Blood Normal Venous pH 7 .371 units 7.330- 7.[address] [facility]: 83 0 [facility] Low Venous Partial Pressure CO2 30.6 mmH g 38.0-50.[address] [facility]: 0 [facility] High Venous Partial Pressure O2 83.8 mmHg 30.0-50.[address] [facility]: 830 [facility] Low Venous Total CO2 18.3 mEq/L 24.0-28. 0 mEq/L [facility]: 830 [facility] Low Venous HCO3 17.3 mEq/L 23.0-27.0 mEq /L [facility]: 830 [facility] Low Venous Base Excess -6.8 -2.0-2.0 [facility]: 830 [facility] Normal Venous Standard HCO3 18.9 mEq/L [facility]: 830 [facility] High Venous O2 Saturation 96.0 % 60.0-80. 0 % [facility]: 830 [facility] 02/17/2020 HbA1C (Hemoglobin a1C), Blood Normal Hemogl obin a1C 8.5 % [facility]: 0 [facility] High Estimated Average Glucose 197 mg/dL 60-110 mg/dL [facility]: 830 [facility] 02/17/2020 SARS CoV 2 RNA (COVID-19), QL, early childhood education coordinator-PCR, Respirat ory Specimen Normal Sars Covid-[address] [facility]: 0 [facility] 02/17/2020 Hepatic Function Panel, Serum Normal AST/SG OT 22 U/L 7-37 U/L [facility]: 830 [facility] Normal ALT/SGPT 18 U/L 12-78 U/L [facility]: 830 [facility] Normal Alkaline Phosphatase 79 U/L 45-117 U /L [facility]: 830 [facility] Normal Bilirubin,total 1.0 mg/dL 0.2-1.0 mg /dL [facility]: 0 [facility] Normal Bilirubin,direct 0.2 mg/dL 0.0-0.2 m g/dL [facility]: 0 [facility] Normal Total Protein 8.2 gm/dL 6.4-8.2 gm/d L [facility]: 830 [facility] Normal Albumin 4.3 gm/dL 3.2-5.2 gm/dL [facility] l [facility]: 0 [facility] Low Albumin/globulin Ratio 1.1 1.2-2. 2 [facility]: 0 [facility] 02/17/2020 BMP, Serum or Plasma High Glucose, Fastin g 337 mg/dL 70-100 mg/dL [facility]: 83 0 [facility] High Blood Urea Nitrogen 49 mg/dL 7-18 mg /dL [facility]: 0 [facility] High Creatinine for GFR 1.73 mg/dL 0.55-1 .30 mg/dL [facility]: 0 [facility] Low Glomerular Filtration Rate 40.7 >[address] [facility]: 830 [facility] Low Sodium Level 132 mEq/L 136-145 mEq/L [facility]: 0 [facility] Normal Potassium Serum 4.1 mEq/L 3.5-5.1 mE q/L [facility]: 0 [facility] Low Chloride Level 95 mEq/L 98-107 mEq/L [facility]: 830 [facility] Low Carbon Dioxide Level 17 mEq/L 21-32 mEq/L [facility]: 0 [facility] High Anion Gap 20 mEq/L 8-16 mEq/L [facility]: 830 [facility] Normal Calcium Level 9.5 mg/dL 8.5-10.1 mg/ dL [facility]: 0 [facility] 02/17/2020 Acetone/ketone High Acetone/ketone > 46. 00 mg/dL <2.81 mg/dL [facility]: 0 [facility] 02/17/2020 Lipase, Serum or Plasma Low Lipase 68 U/L 7 3-393 U/L [facility]: 0 [facility] 02/17/2020 Osmolality, Serum High Osmolality Serum 311 mOsm/kg 275-295 mOsm/kg [facility]: 83 0 [facility] 02/17/2020 Glucose, Fingerstick, Blood High Bedside Glucose 327 mg/dL 70- 105 mg/dL [facility]: 83 0 [facility] 02/17/2020 BMP, Serum or Plasma High Glucose, Fastin g 329 mg/dL 70-100 mg/dL [facility]: 83 0 [facility] High Blood Urea Nitrogen 50 mg/dL 7-18 mg /dL [facility]: 0 [facility] High Creatinine for GFR 1.77 mg/dL 0.55-1 .30 mg/dL [facility]: 830 [facility] Low Glomerular Filtration Rate 39.7 >[address] [facility]: 830 [facility] Low Sodium Level 132 mEq/L 136-145 mEq/L [facility]: 0 [facility] Normal Potassium Serum 3.9 mEq/L 3.5-5.1 mE q/L [facility]: 0 [facility] Low Chloride Level 96 mEq/L 98-107 mEq/L [facility]: 830 [facility] Low Carbon Dioxide Level 18 mEq/L 21-32 mEq/L [facility]: 830 [facility] High Anion Gap 18 mEq/L 8-16 mEq/L [facility]: 830 [facility] Normal Calcium Level 8.9 mg/dL 8.5-10.1 mg/ dL [facility]: 830 [facility] 02/17/2020 Phosphorus Level Normal Phosphorus Level 4 .4 mg/dL 2.5-4.9 mg/dL [facility]: 83 0 [facility] 02/17/2020 BMP, Serum or Plasma High Glucose, Fastin g 314 mg/dL 70-100 mg/dL [facility]: 83 0 [facility] High Blood Urea Nitrogen 48 mg/dL 7-18 mg /dL [facility]: 830 [facility] High Creatinine for GFR 1.81 mg/dL 0.55-1 .30 mg/dL [facility]: 830 [facility] Low Glomerular Filtration Rate 38.7 >[address] [facility]: 830 [facility] Low Sodium Level 134 mEq/L 136-145 mEq/L [facility]: 830 [facility] Normal Potassium Serum 3.5 mEq/L 3.5-5.1 mE q/L [facility]: 830 [facility] Normal Chloride Level 98 mEq/L 98-107 mEq/L [facility]: 830 [facility] Low Carbon Dioxide Level 19 mEq/L 21-32 mEq/L [facility]: 830 [facility] High Anion Gap 17 mEq/L 8-16 mEq/L [facility]: 830 [facility] Normal Calcium Level 8.9 mg/dL 8.5-10.1 mg/ dL [facility]: 830 [facility] 02/17/2020 Phosphorus Level Normal Phosphorus Level 4 .3 mg/dL 2.5-4.9 mg/dL [facility]: 83 0 [facility] 02/17/2020 Glucose, Fingerstick, Blood High Bedside Glucose 191 mg/dL 70- 105 mg/dL [facility]: 83 0 [facility] 02/17/2020 Glucose, Fingerstick, Blood Normal Bedside Glucose 77 mg/dL 70- 105 mg/dL [facility]: 83 0 [facility] 02/17/2020 Glucose, Fingerstick, Blood Normal Bedside Glucose 79 mg/dL 70- 105 mg/dL [facility]: 83 0 [facility] 02/17/2020 Glucose, Fingerstick, Blood Normal Bedside Glucose 103 mg/dL 70-105 mg/dL [facility]: 83 0 [facility] Past Encounters 12/26/2020 Type 1 Diabetes Mellitus; Immunization Advised; History of SARS-CoV-2 Ismael Padilla MD: [address] [place] [phone], Ph. 10/31/2020 Type 1 Diabetes Mellitus; Cannabis Abuse; Diabetic Ketoacidosis; Constipation Ismael Padilla MD: [address] [place] [phone], Ph. 10/10/2020 History of SARS-CoV-2; Type 1 Diabetes Mellitus; Dental Abscess; Immunization Advised Ismael Padilla MD: [address] [place] [phone], Ph. 09/19/2020 Type 1 Diabetes Mellitus Uncontrolled; History of SARS-CoV-2; Dental Abscess Ismael Padilla MD: [address] [place] [phone], Ph. 08/17/2020 Type 1 Diabetes Mellitus; Facial Swelling Ismael Padilla MD: [address] [place] [phone], Ph. 07/10/2020 Type 1 Diabetes Mellitus Uncontrolled; Anemia of Chronic Disease; Gastroparesis Due to Type 1 Diabetes Mellitus; Mental Health Screening Assessment Katie Yoo PA-C: [address] [place] [phone], Ph. 02/23/2020 Type 1 Diabetes Mellitus Uncontrolled; Diabetic Ketoacidosis; Dental Caries Katie Yoo PA-C: [address] [place] [phone], Ph. Social History Tobacco Smoking Status Never Smoker Notes: Pt smokes weed once a day. Vaccine List None recorded. Plan of Care Reminders Provider Appointments None recorded. Lab None recorded. Referral None recorded. Procedures None recorded. Surgeries None recorded. Imaging None recorded. Vitals 12/26/2020 01:00PM ESTABLISHED [id number] Height Weight BMI Blood Pressure 67 in 157 lbs 6 oz 24.6 kg/m2 107/73 mm[Hg] 10/31/2020 05:00PM TCM Height Weight BMI Blood Pressure 67 in 150 lbs 23.5 kg/m2 106/73 mm[Hg] 10/10/2020 09:20AM ESTABLISHED [id number] Height Weight BMI Blood Pressure 67 in 159 lbs 3.2 oz 24.9 kg/m2 123/85 mm[Hg ] 09/19/2020 03:40PM TELEHEALTH 20 Height Weight BMI 67 in 156 lbs 16 oz 24.6 kg/m2 08/17/2020 09:00AM PROVIDER DIRECTED FOLLOW-UP 40 Height Weight BMI Blood Pressure 67 in 157 lbs 6.4 oz 24.7 kg/m2 123/85 mm[Hg ] 07/10/2020 10:40AM HOSPITAL DISCHARGE Height Weight BMI Blood Pressure 67 in 153 lbs 16 oz 24.1 kg/m2 104/74 mm[Hg] 02/23/2020 01:40PM HOSPITAL DISCHARGE Height Weight BMI Blood Pressure 67 in 167 lbs 8 oz 26.2 kg/m2 114/77 mm[Hg]
--- OUTSIDE RECORDS SUMMARY | 2021-02-14 11:47 | CCD ---
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 Name Role Phone Kimberley, Lisa Unavailable Unavailable Kimberley, Lisa Unavailable Unavailable Kimberley, Lisa Unavailable Unavailable Kimberley, Lisa Unavailable Unavailable Kimberley, Lisa Unavailable Unavailable Kimberley, Lisa Unavailable Unavailable Kimberley, Lisa Unavailable Unavailable Kimberley, Lisa Unavailable Unavailable Kimberley, Lisa Unavailable Unavailable Kimberley, Lisa Unavailable Unavailable Kimberley, Lisa Unavailable Unavailable Kimberley, Lisa Unavailable Unavailable Kimberley, Lisa Unavailable Unavailable Kimberley, Lisa Unavailable Unavailable Kimberley, Lisa Unavailable Unavailable Kimberley, Lisa Unavailable Unavailable Kimberley, Lisa Unavailable Unavailable Kimberley, Lisa Unavailable Unavailable Kimberley, Lisa Unavailable Unavailable Kimberley, Lisa Unavailable Unavailable Kimberley, Lisa Unavailable Unavailable Kimberley, Lisa Unavailable Unavailable Kimberley, Lisa Unavailable Unavailable Kimberley, Lisa Unavailable Unavailable Kimberley, Lisa Unavailable Unavailable Kimberley, Lisa Unavailable Unavailable Tamia Lopez MD Unavailable Unavailable [...] Unavailable Unavailable Tamia Lopez MD Unavailable Unavailable MAXINE CHU Unavailable Unavailable KashifRadha mcgregor MD Unavailable Unavailable KashifRadha mcgregor MD Unavailable Unavailable Radha Rowland MD Unavailable Unavailable Radha Rowland MD Unavailable Unavailable Radha Rowland MD Unavailable Unavailable Radha Rowland MD Unavailable Unavailable Radha Rowland MD Unavailable Unavailable Radha Rowland MD Unavailable Unavailable Radha Rowland MD Unavailable Unavailable Radha Rowland MD Unavailable Unavailable Radha Rowland MD Unavailable Unavailable Radha Rowland MD Unavailable Unavailable Radha Rowland MD Unavailable Unavailable Radha Rowland MD Unavailable Unavailable Radha Rowland MD Unavailable Unavailable Radha Rowland MD Unavailable Unavailable Radha Rowland MD Unavailable Unavailable Radha Rowland MD Unavailable Unavailable Radha Rowland MD Unavailable Unavailable Radha Rowland MD Unavailable Unavailable Radha Rowland MD Unavailable Unavailable Radha Rowland MD Unavailable Unavailable Radha Rowland MD Unavailable Unavailable Radha Rowland MD Unavailable Unavailable Radha Rowland MD Unavailable Unavailable Radha Rowland MD Unavailable Unavailable Radha Rowland MD Unavailable Unavailable Radha Rowland MD Unavailable Unavailable Radha Rowland MD Unavailable Unavailable Radha Rowland MD Unavailable Unavailable Radha Rowland MD Unavailable Unavailable Radha Rowland MD Unavailable Unavailable Radha Rowland MD Unavailable Unavailable KashifRadha merritt MD Unavailable Unavailable Scordo, M Katie PA Unavailable [...] M Katie PA Unavailable Unavailable Scordo, M Kaite PA Unavailable Unavailable Scordo, M Katie PA Unavailable Unavailable Scordo, M Katie PA Unavailable Unavailable Scordo, M Katie PA Unavailable Unavailable Re-disclosure Warning The records that [...] is protected by Article 27-F of the [facility] Public Health law. If you continue you may have access to information: Regarding HIV / AIDS; Provided by facilities licensed or operated by the [facility] Office of Mental Health; or Provided by the [facility] Office for People With Developmental Disabilities. If such information is present, then the following [facility] mandated warning applies: This information [...] law may result in a fine or nursing home sentence or both. A general authorization for the release of medical or other information is NOT sufficient authorization for further disc losure. Encounters Encounter Providers Location Date Indications Data Source(s ) Outpatient Attender: Radha HENDERSONeferrer: ISMAEL CHU 05/30/2021 12:00:00 AM [facility] Ismael Chu MD: [address] [place] [address], Ph. Attender: Ismael Chu [facility] 12/26/2020 12:00:00 AM EDT [facility] ([facility]) Ismael Chu MD: [address] [place] [address], Ph. Attender: Ismael Chu [facility] 10/31/2020 12:00:00 AM EDT [facility] ([facility]) Ismael Chu MD: [address] [facility] [place] [address], Ph. Attender: Ismael Chu [facility] Medical 10/31/2020 12:00:00 AM EDT [facility] ([facility]) Ismael Chu MD: [address], [place] [address], Ph. Attender: Ismael Chu [facility] 10/10/2020 12:00:00 AM EDT [facility] ([facility]) Ismael Chu MD: [address], [place] [address], Ph. Attender: Ismael Chu [facility] 10/10/2020 12:00:00 AM EDT [facility] ([facility]) Ismael Chu MD: [address], [place] [address], Ph. Attender: Ismael Chu [facility] 10/10/2020 12:00:00 AM EDT [facility] ([facility]) Ismael Chu MD: [address], [place] [address], Ph. Attender: Ismael Chu [facility] 09/19/2020 12:00:00 AM EDT [facility] ([facility]) Ismael Chu MD: [address], [place] [address], Ph. Attender: Ismael Chu [facility] 09/19/2020 12:00:00 AM EDT [facility] ([facility]) Ismael Chu MD: [address], [place] [address], Ph. Attender: Ismael Chu [facility] 09/19/2020 12:00:00 AM EDT [facility] ([facility]) Ismael Chu MD: [address], [place] [address], Ph. Attender: Ismael Chu [facility] Medical 09/19/2020 12:00:00 AM EDT [facility] ([facility]) Ismael Chu MD: [address], [place] [address], Ph. Attender: Ismael Chu [facility] 08/17/2020 12:00:00 AM EDT [facility] ([facility]) Ismael Chu MD: [address], [place] [address], Ph. Attender: Ismael Chu [facility] 08/17/2020 12:00:00 AM EDT [facility] ([facility]) Ismael Chu MD: [address], [place] [address], Ph. Attender: Ismael Chu [facility] Medical 08/17/2020 12:00:00 AM EDT [facility] ([facility]) Ismael Chu MD: [address], [place] [address], Ph. Attender: Ismael Chu [facility] 08/17/2020 12:00:00 AM EDT [facility] ([facility]) Ismael Chu MD: [address], [place] [address], Ph. Attender: Ismael Chu [facility] Medical 08/17/2020 12:00:00 AM EDT [facility] ([facility]) Katie Yoo PA-C: [address], [place] [address], Ph. Attender: Katie NELSON [facility] Medical 07/10/2020 12:00:00 AM EDT [facility] ([facility]) Katie Yoo PA-C: [address], [place] [address], Ph. Attender: Katie NELSON [facility] Medical 07/10/2020 12:00:00 AM EDT [facility] ([facility]) Katie Yoo PA-C: [address], [place] [address], Ph. Attender: Katie NELSON [facility] Medical 07/10/2020 12:00:00 AM EDT [facility] ([facility]) Katie Yoo PA-C: [address], [place] [address], Ph. Attender: Katie NELSON [facility] Medical 07/10/2020 12:00:00 AM EDT [facility] ([facility]) Katie Yoo PA-C: [address], [place] [address], Ph. Attender: Katie NELSON [facility] Medical 07/10/2020 12:00:00 AM EDT [facility] ([facility]) Katie Yoo PA-C: [address], [place] [address], Ph. Attender: Katie NELSON [facility] Medical 07/10/2020 12:00:00 AM EDT [facility] ([facility]) Katie Yoo PA-C: [address], [place] [address], Ph. Attender: Katie NELSON [facility] Medical 02/23/2020 12:00:00 AM EST [facility] ([facility]) Katie Yoo PA-C: [address], [place] [address], Ph. Attender: Katie NELSON [facility] Medical 02/23/2020 12:00:00 AM EST [facility] ([facility]) Katie Yoo PA-C: [address], [place] [address], Ph. Attender: Katie NELSON [facility] Medical 02/23/2020 12:00:00 AM EST [facility] ([facility]) Katie Yoo PA-C: [address], [place] [address], Ph. Attender: Katie NELSON [facility] Medical 02/23/2020 12:00:00 AM EST [facility] ([facility]) Katie Yoo PA-C: [address], [place] [address], Ph. Attender: Katie NELSON [facility] Medical 02/23/2020 12:00:00 AM EST [facility] ([facility]) Katie Yoo PA-C: [address], [place] [address], Ph. Attender: Katie NELSON [facility] Medical 02/23/2020 12:00:00 AM EST [facility] ([facility]) Katie Yoo PA-C: [address], [place] [address], Ph. Attender: Katie [facility]SON [facility] Medical 02/23/2020 12:00:00 AM EST [facility] ([facility]) Outpatient Attender: Abraham Lopez MD 02/22/2020 02:58:01 PM EST [facility] Medications Medication Brand Name Start Date Product Form Dose Route Admi nistrative Instructions Pharmacy Instructions Status Indications Reaction Description Data Source(s) 100 unit/mL 12/14/2020 12:00:00 AM EDT solution 10 INJECT USE DIRECTED PER SLIDING SCALE MAXIMUM DAILY DOSE = 15 UNITS INJECT USE DIRECTED PER SLIDING SCALE MAXIMUM DAILY DOSE = 15 UNITS SOLD: 02/07/2021 [facility] 100 unit/mL 12/14/2020 12:00:00 AM EDT solution 10 INJECT USE DIRECTED PER SLIDING SCALE MAXIMUM DAILY DOSE = 15 UNITS INJECT USE DIRECTED PER SLIDING SCALE MAXIMUM DAILY DOSE = 15 UNITS SOLD: 12/15/2020 [facility] 0.5 mL 31 gauge x 5/16" 12/14/2020 12:00:00 AM EDT syringe 100 USE WITH INSULIN MEALS AND AT BEDTIME USE WITH INSULIN MEALS AND AT BEDTIME SOLD: 12/15/2020 [facility] 10 mg 10/25/2020 12:00:00 AM EDT tablet 90 TAKE ONE TABLET BY MOUTH THREE TIMES A DAY BEFORE FOOD AND BEDTIME TAKE ONE TABLET BY MOUTH THREE TIMES A D AY BEFORE FOOD AND BEDTIME SOLD: 10/25/2020 [facility] 100 unit/mL 10/25/2020 12:00:00 AM EDT solution 10 INJECT 1 UNIT SUBCUTANEOUSLY BEFORE MEALS AND AT BEDTIME INJECT 1 UNIT SUBCUTANEOUSLY BEFORE MEALS AND AT BEDTIME SOLD: 10/25/2020 [facility] pantoprazole 40 MG Delayed Release Oral Tablet PANTOPRAZOLE SODIUM 10/25/2020 12:00:00 AM EDT tablet,delayed release (DR/EC) 30 T LINDSAY ONE TABLET BY MOUTH EVERY DAY TAKE ONE TABLET BY MOUTH EVERY DAY SOLD: 10/25/2020 [facility] 100 mg 10/25/2020 12:00:00 AM EDT capsule 60 TAKE TWO CAPSULES BY MOUTH EVERY DAY NEEDED FOR CONSTIPATION TAKE TWO CAPSULES BY MOUTH EVERY DAY NEEDED FOR CONSTIPATION SOLD: 10/25/2020 [facility] 10 mg 10/22/2020 12:00:00 AM EDT tablet 30 TAKE TWO TABLETS BY MOUTH AT BEDTIME TAKE TWO TABLETS BY MOUTH AT BEDTIME SOLD: 10/22/2020 [facility] insulin human, isophane 70 UNT/ML / Regu lar Insulin, Human 30 UNT/ML Injectable Suspension [Novolin] 100 unit/mL (70-30) INSULIN NPH HUM/REG INSULIN HM 09/18/2020 12:00:00 AM EDT suspension 10 INJEC T SUBCUTANEOUSLY PER SLIDING SCALE THREE TIMES A DAY MAXIMUM DAILY DOSE = 50 UNITS INJECT SUBCUTANEOUSLY PER SLIDING SCALE THREE TIMES A DAY MAXIMUM DAILY DOSE = 50 UNITS SOLD: 09/19/2020 [facility] 33 gauge 09/17/2020 12:00:00 AM EDT misc 100 USE DIRECTED USE DIRECTED SOLD: 09/18/2020 [facility] pantoprazole 40 MG Delayed Release Oral Tablet PANTOPRAZOLE SODIUM 09/17/2020 12:00:00 AM EDT tablet,delayed release (DR/EC) 14 T LINDSAY ONE TABLET BY MOUTH EVERY DAY TAKE ONE TABLET BY MOUTH EVERY DAY SOLD: 09/18/2020 [facility] 3 ML Insulin Glargine 100 UNT/ML Pen Injector [Basagla r] 100 unit/mL (3 mL) INSULIN GLARGINE,HUM.REC.ANLOG 09/17/2020 12:00:00 AM EDT insulin pen 15 INJECT 5 UNITS UNDER THE SKIN DAILY(ACTUAL 300DS) INJECT 5 UNITS UNDER THE SKIN DAILY(ACTUAL 300DS) SOLD: 09/18/2020 [facility] 32 gauge x 5/32" 09/17/2020 12:00:00 AM EDT needle 100 USE UNDER THE SKIN DAILY DIRECTED USE UNDER THE SKIN DAILY DIRECTED SOLD: 09/18/2020 [facility] BLOOD SUGAR DIAGNOSTIC 09/17/2020 12:00:00 AM EDT strip 100 TEST DAILY DIRECTED TEST DAILY DIRECTED SOLD: 09/18/2020 [facility] ALCOHOL ANTISEPTIC PADS 09/17/2020 12:00:00 AM EDT pads, med icated 100 USE DIRECTED USE DIRECTED SOLD: 09/18/2020 [facility] 1 mL 31 gauge x 5/16 09/17/2020 12:00:00 AM EDT syringe 100 USE DIRECTED USE DIRECTED SOLD: 09/18/2020 [facility] Amoxicillin 875 MG / Clavulanate 125 MG Oral Tablet 87 5-125 mg AMOXICILLIN/POTASSIUM CLAV 08/17/2020 12:00:00 AM EDT tablet 10 TAKE ONE TABLET BY MOUTH EVERY 12 HOURS TAKE ONE TABLET BY MOUTH EVERY 12 HOURS SOLD: 08/17/2020 [facility] BLOOD SUGAR DIAGNOSTIC 07/11/2020 12:00:00 AM EDT strip 100 USE TO TEST BLOOD SUGAR FOUR TIMES A DAY - BEFORE MEALS AND AT BEDTIME USE TO TEST BLOOD SUGAR FOUR TIMES A DAY - BEFORE MEALS AND AT BEDTIME SOLD: 07/24/2020 [facility] 10 mg 07/06/2020 12:00:00 AM EDT tablet 120 TAKE ONE TABLET BY MOUTH FOUR TIMES A DAY BEFORE MEALS AND AT BEDTIME TAKE ONE TABLET BY MOUTH FOUR TIMES A DAY BEFORE MEALS AND AT BEDTIME SOLD: 07/24/2020 [facility] 50 mg 07/06/2020 12:00:00 AM EDT tablet 18 TAKE ONE TABLET BY MOUTH EVERY 4 HOURS NEEDED FOR PAIN MAXIMUM DAILY DOSE = SIX TABLETS TAKE ONE TABLET BY MOUTH EVERY 4 HOURS NEEDED FOR PAIN MAXIMUM DAILY DOSE = SIX TABLETS SOLD: 07/24/2020 [facility] 650 mg 07/06/2020 12:00:00 AM EDT tablet extended release 63 TAKE ONE TABLET BY MOUTH THREE TIMES A DAY TAKE ONE TABLET BY MOUTH THREE TIMES A DAY SOLD: 07/24/2020 [facility] pantoprazole 40 MG Delayed Release Oral Tablet PANTOPRAZOLE SODIUM 07/06/2020 12:00:00 AM EDT tablet,delayed release (DR/EC) 30 T LINDSAY ONE TABLET BY MOUTH EVERY DAY TAKE ONE TABLET BY MOUTH EVERY DAY SOLD: 07/24/2020 [facility] 1 gram 07/06/2020 12:00:00 AM EDT tablet 40 TAKE ONE TABLET BY MOUTH FOUR TIMES A DAY BEFORE MEALS AND AT BEDTIME TAKE ONE TABLET BY MOUTH FOUR TIMES A DAY BEFORE MEALS AND AT BEDTIME SOLD: 07/24/2020 [facility] 875 mg 02/23/2020 12:00:00 AM EST tablet 20 TAKE ONE TABLET BY MOUTH EVERY 12 HOURS FOR 10 DAYS TAKE ONE TABLET BY MOUTH EVERY 12 HOURS FOR 10 DAYS SO LD: 02/23/2020 [facility] 4 mg 02/19/2020 12:00:00 AM EST [...] SUBCUTANEOUSLY AT BEDTIME SOLD: 02/20/2020 [facility] 0.5 mL 31 gauge x 5/16" 02/19/2020 12:00:00 AM EST syringe 100 USE WITH INSULIN BEFORE MEALS AND AT BEDTIME USE WITH INSULIN BEFORE MEALS AND AT BED TIME SOLD: 02/20/2020 [facility] BLOOD-GLUCOSE METER 02/19/2020 12:00:00 AM EST misc 1 USE DIRECTED TO TEST BLOOD SUGAR USE DIRECTED TO TEST BLOOD SUGAR SOLD: 02/20/2020 [facility] 31 gauge x 5/16" 02/19/2020 12:00:00 AM EST needle 100 USE DIRECTED WITH BASAGLAR ONCE DAILY AT BEDTIME USE DIRECTED WITH BASAGLAR ONCE DAILY AT BEDTIME SOLD: 02/20/2020 [facility] 100 unit/mL 02/19/2020 12:00:00 AM EST solution 10 INJECT SUBCUTANEOUSLY BEFORE MEALS AND AT BEDTIME PER SLIDING SCALE MAXIMUM DAILY DOSE = 50 UNITS INJECT SUBCUTANEOUSLY BEFORE MEALS AND AT BEDTIME PER SLIDING SCALE MAXIMUM DAILY DOSE = 50 UNITS SOLD: 02/20/2020 [facility] BLOOD SUGAR DIAGNOSTIC 02/19/2020 12:00:00 AM EST strip 100 USE TO TEST BLOOD SUGAR FOUR TIMES A DAY (BEFORE MEALS AND AT BEDTIME) USE TO TEST BLOOD SUGAR FOUR TIMES A DAY (BEFORE MEALS AND AT BEDTIME) SOLD: 02/20/2020 [facility] Ondansetron 4 MG Disintegrating Oral Tab let ondansetron 4 mg disintegrating tablet DISSOLVE ONE TABLET ON TONGUE EVERY 6 TO 8 HOURS NEEDED FOR NAUSEA AND VOMITING ondansetron 4 mg disintegrating tablet D ISSOLVE ONE TABLET ON TONGUE EVERY 6 TO 8 HOURS NEEDED FOR NAUSEA AND VOMITING completed ondansetron 4 MG Disintegrating Oral Tablet [facility] ([facility]) Acetaminophen 650 MG Oral Tablet acetami nophen 650 mg tablet Take 1 tablet 3 times a day by oral route. acetaminophen 650 mg tablet Take 1 table t 3 times a day by oral route. 1 completed sanjana taminophen 650 MG Oral Tablet [facility] ([facility]) Basaglar KwikPen U-100 Insulin 10 units sc QHS completed Basaglar KwikPen U-100 Insulin [facility] ([facility]) Sucralfate 1000 MG Oral Tablet [Carafate ] Carafate 1 gram tablet Take 1 tablet twice a day by oral route as directed. Carafate 1 gram tablet Take 1 tablet twice a day by oral route as directed. 1 completed sucralfate 1000 MG Oral Tablet [Carafate] [facility] ([facility]) Ondansetron 4 MG Disintegrating Oral Tab let ondansetron 4 mg disintegrating tablet DISSOLVE ONE TABLET ON TONGUE EVERY 6 TO 8 HOURS NEEDED FOR NAUSEA AND VOMITING ondansetron 4 mg disintegrating tablet D ISSOLVE ONE TABLET ON TONGUE EVERY 6 TO 8 HOURS NEEDED FOR NAUSEA AND VOMITING completed ondansetron 4 MG Disintegrating Oral Tablet [facility] ([facility]) Basaglar KwikPen U-100 Insulin 100 unit/mL (3 mL) subcutaneous [id number] completed 3 ML insulin glargine 100 UN T/ML Pen Injector [Basaglar] [facility] ([facility]) Amoxicillin 875 MG / Clavulanate 125 MG Oral Tablet amoxicillin 875 mg-potassium clavulanate 125 mg tablet TAKE ONE TABLET BY MOUTH EVERY 12 HOURS amoxicillin 875 mg-potassium clavulanate 125 mg tablet TAKE ONE TABLET BY MOUTH EVERY 12 HOURS completed amoxici llin 875 MG / clavulanate 125 MG Oral Tablet [facility] ([facility]) Omeprazole 20 MG Delayed Release Oral Ca psule omeprazole 20 mg capsule,delayed release TAKE ONE CAPSULE BY MOUTH TWICE A DAY omeprazole 20 mg capsule,delayed release TAKE ONE CAPSULE BY MOUTH TWICE A DAY completed omeprazole 20 MG Delayed Release Oral Capsule [facility] ([facility]) Penicillin V Potassium 500 MG Oral Table t penicillin V potassium 500 mg tablet TAKE ONE TABLET BY MOUTH TWICE A DAY penicillin V potassium 500 mg tablet ELIAS E ONE TABLET BY MOUTH TWICE A DAY comple pau penicillin V potassium 500 MG Oral Tablet [facility] ([facility]) BD Insulin Syringe Ultra-Fine 0.5 mL 31 gauge x 5/16" USE WITH INSULIN MEALS AND AT BEDTIME [id number] completed BD Insulin Syringe Ultra-Fine 0.5 mL 31 gauge x 5/16" [facility] ([facility]) Basaglar KwikPen U-100 Insulin Take 5 units SC daily completed Basaglar KwikPen U-100 Insulin [facility] ([facility]) Amoxicillin 875 MG Oral Tablet amoxicillin 875 mg tabl et amoxicillin 875 mg tablet completed amoxicillin 875 MG Oral Tablet [facility] ([facility]) tramadol hydrochloride 50 MG Oral Tablet tramadol 50 mg tablet Take 1 tablet every 4 hours by oral route as needed. tramadol 50 mg tablet Take 1 tablet ever y 4 hours by oral route as needed. 1 comp leted tramadol hydrochloride 50 MG Oral Tablet [facility] ([facility]) multivitamin Take one daily completed multivitamin [facility] ([facility]) 8 HR Acetaminophen 650 MG Extended Relea se Oral Tablet Pain Relief (acetaminophen) 650 mg tablet,extended release Pain Relief (acetaminophen) 650 mg tablet,extended release completed 8 HR acetaminophen 650 MG Extended Release Oral Tablet [facility] ([facility]) Ondansetron 4 MG Oral Tablet ondansetron HCl 4 mg tabl et ondansetron HCl 4 mg tablet completed ondansetron 4 M G Oral Tablet [facility] ([facility]) Acetaminophen 650 MG Oral Tablet acetami nophen 650 mg tablet Take 1 tablet 3 times a day by oral route. acetaminophen 650 mg tablet Take 1 table t 3 times a day by oral route. 1 completed sanjana taminophen 650 MG Oral Tablet [facility] ([facility]) Metoclopramide 10 MG Oral Tablet metoclo pramide 10 mg tablet Take 1 tablet 3 times a day by oral route as directed. metoclopramide 10 mg tablet Take 1 table t 3 times a day by oral route as directed. 1 completed metoclopramide 10 MG Oral Tablet [facility] ([facility]) Ondansetron 4 MG Oral Tablet ondansetron HCl 4 mg tabl et ondansetron HCl 4 mg tablet completed ondansetron 4 M G Oral Tablet [facility] ([facility]) tramadol hydrochloride 50 MG Oral Tablet tramadol 50 mg tablet Take 1 tablet every 4 hours by oral route as needed. tramadol 50 mg tablet Take 1 tablet ever y 4 hours by oral route as needed. 1 comp leted tramadol hydrochloride 50 MG Oral Tablet [facility] ([facility]) Metoclopramide 10 MG Oral Tablet metoclopramide 10 mg tablet metoclopramide 10 mg tablet completed metocloprami de 10 MG Oral Tablet [facility] ([facility]) Oxycodone Hydrochloride 5 MG Oral Tablet oxycodone 5 m g tablet oxycodone 5 mg tablet completed oxycodone hydro chloride 5 MG Oral Tablet [facility] ([facility]) Amoxicillin 875 MG Oral Tablet amoxicillin 875 mg tabl et amoxicillin 875 mg tablet completed amoxicillin 875 MG Oral Tablet [facility]) Basaglar KwikPen U-100 Insulin 100 unit/mL (3 mL) subcutaneous [id number] completed 3 ML insulin glargine 100 UN T/ML Pen Injector [Basaglar] [facility] ([facility]) pantoprazole 40 MG Delayed Release Oral Tablet pantoprazole 40 mg tablet,delayed release Take 1 tablet every day by oral route. pantoprazole 40 mg tablet,delayed release Take 1 tablet every day by oral route. 1 completed pantoprazole 40 MG Delayed Relea se Oral Tablet [facility] ([facility]) Penicillin V Potassium 500 MG Oral Table t penicillin V potassium 500 mg tablet TAKE ONE TABLET BY MOUTH TWICE A DAY penicillin V potassium 500 mg tablet ELIAS E ONE TABLET BY MOUTH TWICE A DAY comple pau penicillin V potassium 500 MG Oral Tablet [facility] ([facility]) Amoxicillin 875 MG / Clavulanate 125 MG Oral Tablet amoxicillin 875 mg-potassium clavulanate 125 mg tablet TAKE ONE TABLET BY MOUTH EVERY 12 HOURS amoxicillin 875 mg-potassium clavulanate 125 mg tablet TAKE ONE TABLET BY MOUTH EVERY 12 HOURS completed amoxici llin 875 MG / clavulanate 125 MG Oral Tablet [facility] ([facility]) 8 HR Acetaminophen 650 MG Extended Relea se Oral Tablet Pain Relief (acetaminophen) 650 mg tablet,extended release Pain Relief (acetaminophen) 650 mg tablet,extended release completed 8 HR acetaminophen 650 MG Extended Release Oral Tablet [facility]) Prochlorperazine 25 MG Rectal Suppositor y prochlorperazine 25 mg rectal suppository INSERT ONE SUPPOSITORY RECTALLY EVERY 8 HOURS NEEDED FOR NAUSEA prochlorperazine 25 mg rectal suppository INSERT ONE SUPPOSITORY RECTALLY EVERY 8 HOURS NEEDED FOR NAUSEA completed prochlorperazine 25 MG Rectal Suppository [facility] ([facility]) pantoprazole 40 MG Delayed Release Oral Tablet [Protonix] Protonix 40 mg tablet,delayed release Take 1 tablet every day by oral route. Protonix 40 mg tablet,delayed release Take 1 tablet every day by oral route. 1 completed pantoprazole 40 MG Delayed Relea se Oral Tablet [Protonix] [facility] ([facility]) Prochlorperazine 25 MG Rectal Suppositor y prochlorperazine 25 mg rectal suppository INSERT ONE SUPPOSITORY RECTALLY EVERY 8 HOURS NEEDED FOR NAUSEA prochlorperazine 25 mg rectal suppository INSERT ONE SUPPOSITORY RECTALLY EVERY 8 HOURS NEEDED FOR NAUSEA completed prochlorperazine 25 MG Rectal Suppository [facility] ([facility]) Ondansetron 4 MG Oral Tablet ondansetron HCl 4 mg tabl et ondansetron HCl 4 mg tablet completed ondansetron 4 M G Oral Tablet [facility] ([facility]) Penicillin V Potassium 500 MG Oral Table t penicillin V potassium 500 mg tablet TAKE ONE TABLET BY MOUTH TWICE A DAY penicillin V potassium 500 mg tablet ELIAS E ONE TABLET BY MOUTH TWICE A DAY comple pau penicillin V potassium 500 MG Oral Tablet [facility] ([facility]) Ondansetron 4 MG Oral Tablet ondansetron HCl 4 mg tabl et ondansetron HCl 4 mg tablet completed ondansetron 4 M G Oral Tablet [facility] ([facility]) Metoclopramide 5 MG Oral Tablet metoclopramide 5 mg ta blet metoclopramide 5 mg tablet completed metoclopramide 5 MG Oral Tablet [facility] ([facility]) Ondansetron 4 MG Oral Tablet ondansetron HCl 4 mg tabl et ondansetron HCl 4 mg tablet completed ondansetron 4 M G Oral Tablet ROMAN ([facility]) Oxycodone Hydrochloride 5 MG Oral Tablet oxycodone 5 m g tablet oxycodone 5 mg tablet completed oxycodone hydro chloride 5 MG Oral Tablet ROMAN ([facility]) Metoclopramide 10 MG Oral Tablet metoclopramide 10 mg tablet metoclopramide 10 mg tablet completed metocloprami de 10 MG Oral Tablet ROMAN ([facility]) Isopropyl Alcohol 0.7 ML/ML Medicated Pad Alcohol Prep Pads USE DIRECTED Alcohol Prep Pads USE DIRECTED comp leted isopropyl alcohol 0.7 ML/ML Medicated Pad ROMAN ([facility]) Regular Insulin, Human 100 UNT/ML Inject able Solution [Humulin R] Humulin R Regular U-100 Insulin 100 unit/mL injection solution INJECT SUBCUTANEOUSLY BEFORE MEALS AND AT BEDTIME PER SLIDING SCALE MAXIMUM DAILY DOSE 50 UNITS Humulin R Regular U-100 Insulin 100 unit/mL injection solution INJECT SUBCUTANEOUSLY BEFORE MEALS AND AT BEDTIME PER SLIDING SCALE MAXIMUM DAILY DOSE 50 UNITS completed insu gerard, regular, human 100 UNT/ML Injectable Solution [Humulin R] ROMAN ([facility]) Omeprazole 20 MG Delayed Release Oral Ca psule omeprazole 20 mg capsule,delayed release TAKE ONE CAPSULE BY MOUTH TWICE A DAY omeprazole 20 mg capsule,delayed release TAKE ONE CAPSULE BY MOUTH TWICE A DAY completed omeprazole 20 MG Delayed Release Oral Capsule HEXT ([facility]) Levemir FlexTouch U-100 Insuln Pen; give 5 units daily completed Levemir ROMAN ([facility]) OneTouch Verio Flex Meter USE DIRECTED TO TEST BLOOD SUGAR [id number] completed OneTouch Verio Flex Meter AT [facility] ([facility]) Prochlorperazine 25 MG Rectal Suppositor y prochlorperazine 25 mg rectal suppository INSERT ONE SUPPOSITORY RECTALLY EVERY 8 HOURS NEEDED FOR NAUSEA prochlorperazine 25 mg rectal suppository INSERT ONE SUPPOSITORY RECTALLY EVERY 8 HOURS NEEDED FOR NAUSEA completed prochlorperazine 25 MG Rectal Suppository HEXT ([facility]) Ondansetron 4 MG Disintegrating Oral Tab let ondansetron 4 mg disintegrating tablet DISSOLVE ONE TABLET ON TONGUE EVERY 6 TO 8 HOURS NEEDED FOR NAUSEA AND VOMITING ondansetron 4 mg disintegrating tablet D ISSOLVE ONE TABLET ON TONGUE EVERY 6 TO 8 HOURS NEEDED FOR NAUSEA AND VOMITING completed ondansetron 4 MG Disintegrating Oral Tablet ROMAN ([facility]) Penicillin V Potassium 500 MG Oral Table t penicillin V potassium 500 mg tablet TAKE ONE TABLET BY MOUTH TWICE A DAY penicillin V potassium 500 mg tablet ELIAS E ONE TABLET BY MOUTH TWICE A DAY comple pau penicillin V potassium 500 MG Oral Tablet ROMAN ([facility]) Ondansetron 4 MG Oral Tablet ondansetron HCl 4 mg tabl et ondansetron HCl 4 mg tablet completed ondansetron 4 M G Oral Tablet ROMAN ([facility]) Basaglar KwikPen U-100 Insulin 100 unit/mL (3 mL) subcutaneous [id number] completed 3 ML insulin glargine 100 UN T/ML Pen Injector [Basaglar] ROMAN ([facility]) Basaglar KwikPen U-100 Insulin 100 unit/mL (3 mL) subcutaneous [id number] completed 3 ML insulin glargine 100 UN T/ML Pen Injector [Basaglar] HEXT ([facility]) Omeprazole 20 MG Delayed Release Oral Ca psule omeprazole 20 mg capsule,delayed release TAKE ONE CAPSULE BY MOUTH TWICE A DAY omeprazole 20 mg capsule,delayed release TAKE ONE CAPSULE BY MOUTH TWICE A DAY completed omeprazole 20 MG Delayed Release Oral Capsule HEXT ([facility]) pantoprazole 40 MG Delayed Release Oral Tablet pantoprazole 40 mg tablet,delayed release Take 1 tablet every day by oral route. pantoprazole 40 mg tablet,delayed release Take 1 tablet every day by oral route. 1 completed pantoprazole 40 MG Delayed Relea se Oral Tablet HEXT ([facility]) Acetaminophen 650 MG Oral Tablet acetami nophen 650 mg tablet Take 1 tablet 3 times a day by oral route. acetaminophen 650 mg tablet Take 1 table t 3 times a day by oral route. 1 completed sanjana taminophen 650 MG Oral Tablet ROMAN ([facility]) Prochlorperazine 25 MG Rectal Suppositor y prochlorperazine 25 mg rectal suppository INSERT ONE SUPPOSITORY RECTALLY EVERY 8 HOURS NEEDED FOR NAUSEA prochlorperazine 25 mg rectal suppository INSERT ONE SUPPOSITORY RECTALLY EVERY 8 HOURS NEEDED FOR NAUSEA completed prochlorperazine 25 MG Rectal Suppository ROMAN ([facility]) Prochlorperazine 25 MG Rectal Suppositor y prochlorperazine 25 mg rectal suppository INSERT ONE SUPPOSITORY RECTALLY EVERY 8 HOURS NEEDED FOR NAUSEA prochlorperazine 25 mg rectal suppository INSERT ONE SUPPOSITORY RECTALLY EVERY 8 HOURS NEEDED FOR NAUSEA completed prochlorperazine 25 MG Rectal Suppository ROMAN ([facility]) Penicillin V Potassium 500 MG Oral Table t penicillin V potassium 500 mg tablet TAKE ONE TABLET BY MOUTH TWICE A DAY penicillin V potassium 500 mg tablet ELIAS E ONE TABLET BY MOUTH TWICE A DAY comple pau penicillin V potassium 500 MG Oral Tablet ROMAN ([facility]) Levemir FlexTouch U-100 Insuln Pen; give 5 units daily completed Levemir ROMAN ([facility]) Basaglar KwikPen U-100 Insulin 100 unit/mL (3 mL) subcutaneous [id number] completed 3 ML insulin glargine 100 UN T/ML Pen Injector [Basaglar] HEXT ([facility]) Prochlorperazine 25 MG Rectal Suppositor y prochlorperazine 25 mg rectal suppository INSERT ONE SUPPOSITORY RECTALLY EVERY 8 HOURS NEEDED FOR NAUSEA prochlorperazine 25 mg rectal suppository INSERT ONE SUPPOSITORY RECTALLY EVERY 8 HOURS NEEDED FOR NAUSEA completed prochlorperazine 25 MG Rectal Suppository HEXT ([facility]) Metoclopramide 5 MG Oral Tablet metoclop ramide 5 mg tablet TAKE ONE TABLET BY MOUTH EVERY DAY BEFORE MEALS AND AT BEDTIME metoclopramide 5 mg tablet TAKE ONE TABLET BY MOUTH EVERY DAY BEFORE MEALS AND AT BEDTIME completed metoclopramide 5 MG Oral Tablet ROMAN ([facility]) Metoclopramide 5 MG Oral Tablet metoclopramide 5 mg ta blet metoclopramide 5 mg tablet completed metoclopramide 5 MG Oral Tablet ROMAN ([facility]) Ondansetron 4 MG Disintegrating Oral Tab let ondansetron 4 mg disintegrating tablet DISSOLVE ONE TABLET ON TONGUE EVERY 6 TO 8 HOURS NEEDED FOR NAUSEA AND VOMITING ondansetron 4 mg disintegrating tablet D ISSOLVE ONE TABLET ON TONGUE EVERY 6 TO 8 HOURS NEEDED FOR NAUSEA AND VOMITING completed ondansetron 4 MG Disintegrating Oral Tablet ROMAN ([facility]) Metoclopramide 10 MG Oral Tablet metoclopramide 10 mg tablet metoclopramide 10 mg tablet completed metocloprami de 10 MG Oral Tablet ROMAN ([facility]) 8 HR Acetaminophen 650 MG Extended Relea se Oral Tablet Pain Relief (acetaminophen) 650 mg tablet,extended release Pain Relief (acetaminophen) 650 mg tablet,extended release completed 8 HR acetaminophen 650 MG Extended Release Oral Tablet ROMAN ([facility]) pantoprazole 40 MG Delayed Release Oral Tablet pantoprazole 40 mg tablet,delayed release Take 1 tablet every day by oral route. pantoprazole 40 mg tablet,delayed release Take 1 tablet every day by oral route. 1 completed pantoprazole 40 MG Delayed Relea se Oral Tablet ROMAN ([facility]) Prochlorperazine 25 MG Rectal Suppositor y prochlorperazine 25 mg rectal suppository INSERT ONE SUPPOSITORY RECTALLY EVERY 8 HOURS NEEDED FOR NAUSEA prochlorperazine 25 mg rectal suppository INSERT ONE SUPPOSITORY RECTALLY EVERY 8 HOURS NEEDED FOR NAUSEA completed prochlorperazine 25 MG Rectal Suppository ROMAN ([facility]) Amoxicillin 875 MG Oral Tablet amoxicillin 875 mg tabl et amoxicillin 875 mg tablet completed amoxicillin 875 MG Oral Tablet ROMAN ([facility]) Basaglar KwikPen U-100 Insulin 10 units sc QHS completed Basaglar KwikPen U-100 Insulin ROMAN ([facility]) Amoxicillin 875 MG / Clavulanate 125 MG Oral Tablet amoxicillin 875 mg-potassium clavulanate 125 mg tablet TAKE ONE TABLET BY MOUTH EVERY 12 HOURS amoxicillin 875 mg-potassium clavulanate 125 mg tablet TAKE ONE TABLET BY MOUTH EVERY 12 HOURS completed amoxici llin 875 MG / clavulanate 125 MG Oral Tablet ROMAN ([facility]) Sucralfate 1000 MG Oral Tablet [Carafate ] Carafate 1 gram tablet Take 1 tablet twice a day by oral route as directed. Carafate 1 gram tablet Take 1 tablet twice a day by oral route as directed. 1 completed sucralfate 1000 MG Oral Tablet [Carafate] ROMAN ([facility]) OneTouch Delica Plus Lancet 33 gauge [id number] completed OneTouch Delica Plus Lancet 33 gauge ROMAN ([facility]) Acetaminophen 650 MG Oral Tablet acetami nophen 650 mg tablet Take 1 tablet 3 times a day by oral route. acetaminophen 650 mg tablet Take 1 table t 3 times a day by oral route. 1 completed sanjana taminophen 650 MG Oral Tablet [facility]EXT ([facility]) tramadol hydrochloride 50 MG Oral Tablet tramadol 50 mg tablet Take 1 tablet every 4 hours by oral route as needed. tramadol 50 mg tablet Take 1 tablet ever y 4 hours by oral route as needed. 1 comp leted tramadol hydrochloride 50 MG Oral Tablet ROMAN ([facility]) BD Ultra-Fine Sonya Pen Needle 32 gauge x 5/32" USE UNDER THE SKIN DAILY DIRECTED [id number] completed BD Ult ra-Fine Sonya Pen Needle 32 gauge x 5/32" [facility]EXT ([facility]) Regular Insulin, Human 100 UNT/ML Inject able Solution [Humulin R] Humulin R Regular U-100 Insulin 100 unit/mL injection solution INJECT SUBCUTANEOUSLY BEFORE MEALS AND AT BEDTIME PER SLIDING SCALE MAXIMUM DAILY DOSE 50 UNITS Humulin R Regular U-100 Insulin 100 unit/mL injection solution INJECT SUBCUTANEOUSLY BEFORE MEALS AND AT BEDTIME PER SLIDING SCALE MAXIMUM DAILY DOSE 50 UNITS completed insu gerard, regular, human 100 UNT/ML Injectable Solution [Humulin R] ROMAN ([facility]) Omeprazole 20 MG Delayed Release Oral Ca psule omeprazole 20 mg capsule,delayed release TAKE ONE CAPSULE BY MOUTH TWICE A DAY omeprazole 20 mg capsule,delayed release TAKE ONE CAPSULE BY MOUTH TWICE A DAY completed omeprazole 20 MG Delayed Release Oral Capsule HEXT ([facility]) Ondansetron 4 MG Disintegrating Oral Tab let ondansetron 4 mg disintegrating tablet DISSOLVE ONE TABLET ON TONGUE EVERY 6 TO 8 HOURS NEEDED FOR NAUSEA AND VOMITING ondansetron 4 mg disintegrating tablet D ISSOLVE ONE TABLET ON TONGUE EVERY 6 TO 8 HOURS NEEDED FOR NAUSEA AND VOMITING completed ondansetron 4 MG Disintegrating Oral Tablet HEXT ([facility]) Amitriptyline Hydrochloride 10 MG Oral T ablet amitriptyline 10 mg tablet Take 2 tablets every day by oral route at bedtime. amitriptyline 10 mg tablet Take 2 tablets every day by oral route at bedtime. 2 completed amitriptyline hydrochloride 10 MG Oral Tablet HEXT ([facility]) Oxycodone Hydrochloride 5 MG Oral Tablet oxycodone 5 m g tablet oxycodone 5 mg tablet completed oxycodone hydro chloride 5 MG Oral Tablet ROMAN ([facility]) tramadol hydrochloride 50 MG Oral Tablet tramadol 50 mg tablet Take 1 tablet every 4 hours by oral route as needed. tramadol 50 mg tablet Take 1 tablet ever y 4 hours by oral route as needed. 1 compl eted tramadol hydrochloride 50 MG Oral Tablet ROMAN ([facility]) Metoclopramide 5 MG Oral Tablet metoclopramide 5 mg ta blet metoclopramide 5 mg tablet completed metoclopramide 5 MG Oral Tablet ROMAN ([facility]) Amoxicillin 875 MG Oral Tablet amoxicillin 875 mg tabl et amoxicillin 875 mg tablet completed amoxicillin 875 MG Oral Tablet ROMAN ([facility]) Amoxicillin 875 MG Oral Tablet amoxicillin 875 mg tabl et amoxicillin 875 mg tablet completed amoxicillin 875 MG Oral Tablet ROMAN ([facility]) Metoclopramide 5 MG Oral Tablet metoclopramide 5 mg ta blet metoclopramide 5 mg tablet completed metoclopramide 5 MG Oral Tablet ROMAN ([facility]) Oxycodone Hydrochloride 5 MG Oral Tablet oxycodone 5 m g tablet oxycodone 5 mg tablet completed oxycodone hydro chloride 5 MG Oral Tablet ROMAN ([facility]) Metoclopramide 10 MG Oral Tablet metoclopramide 10 mg tablet metoclopramide 10 mg tablet completed metocloprami de 10 MG Oral Tablet HEXT ([facility]) Amitriptyline Hydrochloride 10 MG Oral T ablet amitriptyline 10 mg tablet Take 2 tablets every day by oral route at bedtime. amitriptyline 10 mg tablet Take 2 tablets every day by oral route at bedtime. 2 completed amitriptyline hydrochloride 10 MG Oral Tablet HEXT ([facility]) Omeprazole 20 MG Delayed Release Oral Ca psule omeprazole 20 mg capsule,delayed release TAKE ONE CAPSULE BY MOUTH TWICE A DAY omeprazole 20 mg capsule,delayed release TAKE ONE CAPSULE BY MOUTH TWICE A DAY completed omeprazole 20 MG Delayed Release Oral Capsule HEXT ([facility]) Penicillin V Potassium 500 MG Oral Table t penicillin V potassium 500 mg tablet TAKE ONE TABLET BY MOUTH TWICE A DAY penicillin V potassium 500 mg tablet ELIAS E ONE TABLET BY MOUTH TWICE A DAY comple pau penicillin V potassium 500 MG Oral Tablet ROMAN ([facility]) 8 HR Acetaminophen 650 MG Extended Relea se Oral Tablet Pain Relief (acetaminophen) 650 mg tablet,extended release Pain Relief (acetaminophen) 650 mg tablet,extended release completed 8 HR acetaminophen 650 MG Extended Release Oral Tablet ROMAN ([facility]) insulin human, isophane 70 UNT/ML / Regu lar Insulin, Human 30 UNT/ML Injectable Suspension [Novolin] Novolin 70/30 U-100 Insulin 100 unit/mL subcutaneous suspension INJECT SUBCUTANEOUSLY PER SLIDING SCALE THREE TIMES A DAY MAXIMUM DAILY DOSE 50 UNITS Novolin 70/30 U-100 Insulin 100 unit/mL subcutaneous suspension INJECT SUBCUTANEOUSLY PER SLIDING SCALE THREE TIMES A DAY MAXIMUM DAILY DOSE 50 UNITS completed insulin isophane, human 70 UNT/ML / insulin, regular, human 30 UNT/ML Injectable Suspension [Novolin] HEXT ([facility]) Ondansetron 4 MG Oral Tablet ondansetron HCl 4 mg tabl et ondansetron HCl 4 mg tablet completed ondansetron 4 M G Oral Tablet HEXT ([facility]) Acetaminophen 650 MG Oral Tablet acetami nophen 650 mg tablet Take 1 tablet 3 times a day by oral route. acetaminophen 650 mg tablet Take 1 table t 3 times a day by oral route. 1 completed sanjana taminophen 650 MG Oral Tablet [facility]EXT ([facility]) Basaglar KwikPen U-100 Insulin 10 units sc QHS completed Basaglar KwikPen U-100 Insulin HEXT ([facility]) tramadol hydrochloride 50 MG Oral Tablet tramadol 50 mg tablet Take 1 tablet every 4 hours by oral route as needed. tramadol 50 mg tablet Take 1 tablet ever y 4 hours by oral route as needed. 1 comp leted tramadol hydrochloride 50 MG Oral Tablet ROMAN ([facility]) Metoclopramide 5 MG Oral Tablet metoclopramide 5 mg ta blet metoclopramide 5 mg tablet completed metoclopramide 5 MG Oral Tablet HEXT ([facility]) Oxycodone Hydrochloride 5 MG Oral Tablet oxycodone 5 m g tablet oxycodone 5 mg tablet completed oxycodone hydro chloride 5 MG Oral Tablet HEXT ([facility]) Amoxicillin 875 MG / Clavulanate 125 MG Oral Tablet amoxicillin 875 mg-potassium clavulanate 125 mg tablet TAKE ONE TABLET BY MOUTH EVERY 12 HOURS amoxicillin 875 mg-potassium clavulanate 125 mg tablet TAKE ONE TABLET BY MOUTH EVERY 12 HOURS completed amoxici llin 875 MG / clavulanate 125 MG Oral Tablet HEXT ([facility]) Sucralfate 1000 MG Oral Tablet [Carafate ] Carafate 1 gram tablet Take 1 tablet twice a day by oral route as directed. Carafate 1 gram tablet Take 1 tablet twice a day by oral route as directed. 1 completed sucralfate 1000 MG Oral Tablet [Carafate] HEXT ([facility]) Omeprazole 20 MG Delayed Release Oral Ca psule omeprazole 20 mg capsule,delayed release TAKE ONE CAPSULE BY MOUTH TWICE A DAY omeprazole 20 mg capsule,delayed release TAKE ONE CAPSULE BY MOUTH TWICE A DAY completed omeprazole 20 MG Delayed Release Oral Capsule HEXT ([facility]) Sucralfate 1000 MG Oral Tablet [Carafate ] Carafate 1 gram tablet Take 1 tablet twice a day by oral route as directed. Carafate 1 gram tablet Take 1 tablet twice a day by oral route as directed. 1 completed sucralfate 1000 MG Oral Tablet [Carafate] HEXT ([facility]) Oxycodone Hydrochloride 5 MG Oral Tablet oxycodone 5 m g tablet oxycodone 5 mg tablet completed oxycodone hydro chloride 5 MG Oral Tablet HEXT ([facility]) insulin human, isophane 70 UNT/ML / Regu lar Insulin, Human 30 UNT/ML Injectable Suspension [Novolin] Novolin 70/30 U-100 Insulin 100 unit/mL subcutaneous suspension INJECT SUBCUTANEOUSLY PER SLIDING SCALE THREE TIMES A DAY MAXIMUM DAILY DOSE 50 UNITS Novolin 70/30 U-100 Insulin 100 unit/mL subcutaneous suspension INJECT SUBCUTANEOUSLY PER SLIDING SCALE THREE TIMES A DAY MAXIMUM DAILY DOSE 50 UNITS completed insulin isophane, human 70 UNT/ML / insulin, regular, human 30 UNT/ML Injectable Suspension [Novolin] HEXT ([facility]) Regular Insulin, Human 100 UNT/ML Inject able Solution [Humulin R] Humulin R Regular U-100 Insulin 100 unit/mL injection solution INJECT SUBCUTANEOUSLY BEFORE MEALS AND AT BEDTIME PER SLIDING SCALE MAXIMUM DAILY DOSE 50 UNITS Humulin R Regular U-100 Insulin 100 unit/mL injection solution INJECT SUBCUTANEOUSLY BEFORE MEALS AND AT BEDTIME PER SLIDING SCALE MAXIMUM DAILY DOSE 50 UNITS completed insu gerard, regular, human 100 UNT/ML Injectable Solution [Humulin R] ROMAN ([facility]) Penicillin V Potassium 500 MG Oral Table t penicillin V potassium 500 mg tablet TAKE ONE TABLET BY MOUTH TWICE A DAY penicillin V potassium 500 mg tablet ELIAS E ONE TABLET BY MOUTH TWICE A DAY comple pau penicillin V potassium 500 MG Oral Tablet ROMAN ([facility]) Omeprazole 20 MG Delayed Release Oral Ca psule omeprazole 20 mg capsule,delayed release TAKE ONE CAPSULE BY MOUTH TWICE A DAY omeprazole 20 mg capsule,delayed release TAKE ONE CAPSULE BY MOUTH TWICE A DAY completed omeprazole 20 MG Delayed Release Oral Capsule ROMAN ([facility]) Ondansetron 4 MG Disintegrating Oral Tab let ondansetron 4 mg disintegrating tablet DISSOLVE ONE TABLET ON TONGUE EVERY 6 TO 8 HOURS NEEDED FOR NAUSEA AND VOMITING ondansetron 4 mg disintegrating tablet D ISSOLVE ONE TABLET ON TONGUE EVERY 6 TO 8 HOURS NEEDED FOR NAUSEA AND VOMITING completed ondansetron 4 MG Disintegrating Oral Tablet ROMAN ([facility]) Sucralfate 1000 MG Oral Tablet [Carafate ] Carafate 1 gram tablet Take 1 tablet twice a day by oral route as directed. Carafate 1 gram tablet Take 1 tablet twice a day by oral route as directed. 1 completed sucralfate 1000 MG Oral Tablet [Carafate] ROMAN ([facility]) Amoxicillin 875 MG Oral Tablet amoxicillin 875 mg tabl et amoxicillin 875 mg tablet completed amoxicillin 875 MG Oral Tablet HEXT ([facility]) 8 HR Acetaminophen 650 MG Extended Relea se Oral Tablet Pain Relief (acetaminophen) 650 mg tablet,extended release Pain Relief (acetaminophen) 650 mg tablet,extended release completed 8 HR acetaminophen 650 MG Extended Release Oral Tablet ROMAN ([facility]) Docusate Sodium 100 MG Oral Capsule docu sate sodium 100 mg capsule Take 2 capsules every day by oral route as needed. docusate sodium 100 mg capsule Take 2 capsules every day by oral route as needed. 2 capsule(s) completed docusate sodium 100 MG Oral Capsule ATHVanessa ORDOÑEZ ([facility]) BD Ultra-Fine Short Pen Needle 31 gauge x 5/16" USE DIRECTED WITH AMANDA ONCE DAILY AT BEDTIME [id number] completed BD Ultra-Fine Short Pen Needle 31 gauge x 5/16" ROMAN ([facility]) BD Insulin Syringe Ultra-Fine 1 mL 31 gauge x 5/16" USE DIRECTED [id number] completed BD Insulin Syringe Ult ra-Fine 1 mL 31 gauge x 5/16" ROMAN ([facility]) Oxycodone Hydrochloride 5 MG Oral Tablet oxycodone 5 m g tablet oxycodone 5 mg tablet completed oxycodone hydro chloride 5 MG Oral Tablet ROMAN ([facility]) Insurance Providers Payer name Policy type / Coverage type Policy ID Covered green party ID Covered green party's relationship to manning Policy Manning Plan Information Medicaid S [id number] S [id number] [facility] P [id number] S [id number] Medicaid S [id number] [facility] P [id number] S [id number] [facility] P [id number] S [id number] [facility] [id number] SP [id number] SELF PAY ONLY [id number] SP [id number] SELF PAY UNAVAILABLE SP UNAVAILA BLE MEDICAID GME W [id number] S [id number] J [facility] COMM PLAN FHP W [id number] S [id number] MEDICAID W UNAVAILABLE S UNAVAILA BLE SELF PAY P [id number] S P UNAVAILABLE UNAVAILA BLE [facility] [id number] SP [id number] BLUE [employer] PLAN [id number] SP [id number] [facility] BLUE [id number] SP [id number] [facility] [id number] SP [id number] [facility]) O [id number] S [id number] MEDICAID [id number] SP [id number] [facility] P UNAVAILABLE S UNAVAILABLE Medicaid S [id number] Problems, Conditions, and Diagnoses Code Display Name Description Problem Type Effective Dates Data Source(s) 049251344 Chronic kidney disease stage 3A Chronic Kidney D isease Stage 3a Problem 10/31/2020 12:00:00 AM EDT ROMAN ([facility]) [id number] Cannabis abuse Cannabis Abuse Problem 10/31/2020 12:00: 00 AM EDT HEXT ([facility]) [id number] Chronic kidney disease stage 3A Chronic Kidney D isease Stage 3a Problem 10/31/2020 12:00:00 AM EDT ROMAN ([facility]) [id number] Cannabis abuse Cannabis Abuse Problem 10/31/2020 12:00: 00 AM EDT ROMAN ([facility]) [id number] History of SARS-CoV-2 History of SARS-CoV-2 Prob chari 10/09/2020 12:00:00 AM EDT ROMAN ([facility]) [id number] History of SARS-CoV-2 History of SARS-CoV-2 Prob chari 10/09/2020 12:00:00 AM EDT ROMAN ([facility]) [id number] History of SARS-CoV-2 History of SARS-CoV-2 Prob chari 10/09/2020 12:00:00 AM EDT ROMAN ([facility]) [id number] Calorie restricted diet Calorie Restricted Diet Proble m 07/10/2020 12:00:00 AM EDT ROMAN ([facility]) [id number] Gastroparesis due to type 1 diabetes jonah litus Gastroparesis Due to Type 1 Diabetes Mellitus Problem 07/10/2020 12:00:00 AM EDT ROMAN ( [facility]) [id number] Gastroesophageal reflux disease Gastroesophageal Reflux Disease Problem 07/10/2020 12:00:00 AM EDT ROMAN ([facility]) [id number] Anemia of chronic disease Anemia of Chronic Disease Pr oblem 07/10/2020 12:00:00 AM EDT ROMAN ([facility]) [id number] Type 1 diabetes mellitus Type 1 Diabetes Mellitus Prob chari 07/10/2020 12:00:00 AM EDT ROMAN ([facility]) [id number] Calorie restricted diet Calorie Restricted Diet Proble m 07/10/2020 12:00:00 AM EDT ROMAN ([facility]) [id number] Gastroparesis due to type 1 diabetes jonah litus Gastroparesis Due to Type 1 Diabetes Mellitus Problem 07/10/2020 12:00:00 AM EDT ROMAN ( [facility]) [id number] Gastroesophageal reflux disease Gastroesophageal Reflux Disease Problem 07/10/2020 12:00:00 AM EDT ROMAN ([facility]) [id number] Anemia of chronic disease Anemia of Chronic Disease Pr oblem 07/10/2020 12:00:00 AM EDT ROMAN ([facility]) [id number] Type 1 diabetes mellitus Type 1 Diabetes Mellitus Prob chari 07/10/2020 12:00:00 AM EDT ROMAN ([facility]) [id number] Calorie restricted diet Calorie Restricted Diet Proble m 07/10/2020 12:00:00 AM EDT ROMAN ([facility]) [id number] Gastroparesis due to type 1 diabetes jonah litus Gastroparesis Due to Type 1 Diabetes Mellitus Problem 07/10/2020 12:00:00 AM EDT ROMAN ( [facility]) [id number] Gastroesophageal reflux disease Gastroesophageal Reflux Disease Problem 07/10/2020 12:00:00 AM EDT ROMAN ([facility]) [id number] Anemia of chronic disease Anemia of Chronic Disease Pr oblem 07/10/2020 12:00:00 AM EDT ROMAN ([facility]) [id number] Type 1 diabetes mellitus Type 1 Diabetes Mellitus Prob chari 07/10/2020 12:00:00 AM EDT ROMAN ([facility]) [id number] Calorie restricted diet Calorie Restricted Diet Proble m 07/10/2020 12:00:00 AM EDT ROMAN ([facility]) [id number] Gastroparesis due to type 1 diabetes jonah litus Gastroparesis Due to Type 1 Diabetes Mellitus Problem 07/10/2020 12:00:00 AM EDT ROMAN ( [facility]) [id number] Gastroesophageal reflux disease Gastroesophageal Reflux Disease Problem 07/10/2020 12:00:00 AM EDT ROMAN ([facility]) [id number] Anemia of chronic disease Anemia of Chronic Disease Pr oblem 07/10/2020 12:00:00 AM EDT ROMAN ([facility]) [id number] Type 1 diabetes mellitus Type 1 Diabetes Mellitus Prob chari 07/10/2020 12:00:00 AM EDT ROMAN ([facility]) [id number] Calorie restricted diet Calorie Restricted Diet Proble m 07/10/2020 12:00:00 AM EDT ROMAN ([facility]) [id number] Gastroparesis due to type 1 diabetes jonah litus Gastroparesis Due to Type 1 Diabetes Mellitus Problem 07/10/2020 12:00:00 AM EDT ROMAN ( [facility]) [id number] Gastroesophageal reflux disease Gastroesophageal Reflux Disease Problem 07/10/2020 12:00:00 AM EDT ROMAN ([facility]) [id number] Anemia of chronic disease Anemia of Chronic Disease Pr oblem 07/10/2020 12:00:00 AM EDT ROMAN ([facility]) [id number] Type 1 diabetes mellitus Type 1 Diabetes Mellitus Prob chari 07/10/2020 12:00:00 AM EDT ROMAN ([facility]) [id number] Calorie restricted diet Calorie Restricted Diet Proble 07/10/2020 12:00:00 AM EDT ROMAN ([facility]) [id number] Gastroparesis due to type 1 diabetes jonah litus Gastroparesis Due to Type 1 Diabetes Mellitus Problem 07/10/2020 12:00:00 AM EDT ROMAN ( [facility]) [id number] Gastroesophageal reflux disease Gastroesophageal Reflux Disease Problem 07/10/2020 12:00:00 AM EDT ROMAN ([facility]) [id number] Anemia of chronic disease Anemia of Chronic Disease Pr oblem 07/10/2020 12:00:00 AM EDT ROMAN ([facility]) [id number] Type 1 diabetes mellitus Type 1 Diabetes Mellitus Prob chari 07/10/2020 12:00:00 AM EDT ROMAN ([facility]) [id number] Clinical finding Clinical Finding Problem 018 12:00:00 AM EDT - 07/10/2020 12:00:00 AM EDT ROMAN ([facility]) [id number] Clinical finding Clinical Finding Problem 018 12:00:00 AM EDT - 07/10/2020 12:00:00 AM EDT ROMAN ([facility]) [id number] Clinical finding Clinical Finding Problem 018 12:00:00 AM EDT - 07/10/2020 12:00:00 AM EDT ROMAN ([facility]) [id number] Clinical finding Clinical Finding Problem 018 12:00:00 AM EDT - 07/10/2020 12:00:00 AM EDT ROMAN ([facility]) [id number] Clinical finding Clinical Finding Problem 018 12:00:00 AM EDT - 07/10/2020 12:00:00 AM EDT ROMAN ([facility]) [id number] Clinical finding Clinical Finding Problem 018 12:00:00 AM EDT - 07/10/2020 12:00:00 AM EDT HEXT ([facility]) Surgeries/Procedures No Information Results ID Date Data Source [id number] 10/23/2020 02:21:00 PM EDT [facility] Name Value Range Interpretation Code Description Data Kaye rce(s) Supporting Document(s) SARS-CoV-2 (COVID 19) NEGATIVE - SARS-CoV-2 (COVID19) [facility] This lab was ordered by [facility] a nd reported by [facility]. ID Date Data Source [id number] 10/13/2020 09:56:00 AM EDT [facility] Name Value Range Interpretation Code Description Data Kaye rce(s) Supporting Document(s) SARS coronavirus 2 RNA [Presence] in Res piratory specimen by SULY with probe detection NEGATIVE [facility] This lab was ordered by [facility] a nd reported by [facility]. ID Date Data Source [id number] 10/10/2020 10:19:00 AM EDT [facility]) Name Value Range Interpretation Code Description Data Kaye rce(s) Supporting Document(s) Hemoglobin A1c/Hemoglobin.total in Blood 9.2 %_of_total_HGB <5.7 Above high normal Hemoglobin a1C [facility] ([facility]) ID Date Data Source [id number] 10/10/2020 10:19:00 AM EDT [facility]) Name Value Range Interpretation Code Description Data Kaye rce(s) Supporting Document(s) Troponin I.cardiac [Mass/volume] in Serum or Plasma 16 NG/L < or = 47 Troponin I ROMAN ([facility]) ID Date Data Source [id number] 10/10/2020 10:19:00 AM EDT ROMAN ([facility]) Name Value Range Interpretation Code Description Data Kaye rce(s) Supporting Document(s) Cholesterol [Mass/volume] in Serum or Plasma 214 mg/dL <200 Above high normal Cholesterol, Total ROMAN ([facility]) Cholesterol in HDL [Mass/volume] in Serum or Plasma 67 mg/dL > or = 50 HDL Cholesterol ROMAN ([facility]) Triglyceride [Mass/volume] in Serum or Plasma 59 mg/dL <150 Triglycerides ROMAN ([facility]) Cholesterol in LDL [Mass/volume] in Serum or Plasma by calculation 132 mg/dL_(calc) Above high normal LDL-cholesterol ROMAN ([facility]) Cholesterol.total/Cholesterol in HDL [Mass Ratio] in Serum o r Plasma 3.2 (calc) <5.0 Chol/hdlc Ratio ROMAN ([facility]) Cholesterol non HDL [Mass/volume] in Serum or Plasma 147 mg/dL_( calc) <130 Above high normal Non HDL Cholesterol ROMAN ([facility]) ID Date Data Source [id number] 10/10/2020 10:19:00 AM EDT [facility]) Name Value Range Interpretation Code Description Data Kaye rce(s) Supporting Document(s) Hemoglobin A1c/Hemoglobin.total in Blood 9.2 %_of_total_HGB <5.7 Above high normal Hemoglobin a1C ROMAN ([facility]) ID Date Data Source [id number] 10/10/2020 10:19:00 [facility] Name Value Range Interpretation Code Description Data Kaye rce(s) Supporting Document(s) Troponin I.cardiac [Mass/volume] in Serum or Plasma 16 NG/L < or = 47 Troponin I ROMAN ([facility]) ID Date Data Source [id number] 10/10/2020 10:19:00 AM EDT [facility]EXT ([facility]) Name Value Range Interpretation Code Description Data Kaye rce(s) Supporting Document(s) Cholesterol [Mass/volume] in Serum or Plasma 214 mg/dL <200 Above high normal Cholesterol, Total ROMAN ([facility]) Cholesterol in HDL [Mass/volume] in Serum or Plasma 67 mg/dL > or = 50 HDL Cholesterol ROMAN ([facility]) Triglyceride [Mass/volume] in Serum or Plasma 59 mg/dL <150 Triglycerides ROMAN ([facility]) Cholesterol in LDL [Mass/volume] in Serum or Plasma by calculation 132 mg/dL_(calc) Above high normal LDL-cholesterol ROMAN ([facility]) Cholesterol.total/Cholesterol in HDL [Mass Ratio] in Serum o r Plasma 3.2 (calc) <5.0 Chol/hdlc Ratio ROMAN ([facility]) Cholesterol non HDL [Mass/volume] in Serum or Plasma 147 mg/dL_( calc) <130 Above high normal Non HDL Cholesterol ROMAN ([facility]) ID Date Data Source [id number] 09/16/2020 04:31:00 PM EDT [facility] Name Value Range Interpretation Code Description Data Kaye rce(s) Supporting Document(s) SARS coronavirus 2 RNA [Presence] in Res piratory specimen by SULY with probe detection POSITIVE [facility] This lab was ordered by [facility] a nd reported by [facility]. ID Date Data Source [id number] 07/02/2020 01:32:00 AM EDT [facility] Name Value Range Interpretation Code Description Data Kaye rce(s) Supporting Document(s) SARS coronavirus 2 RNA [Presence] in Res piratory specimen by SULY with probe detection NEGATIVE [facility] This lab was ordered by [facility] a nd reported by [facility]. ID Date Data Source [id number] 06/25/2020 04:56:00 PM EDT [facility]EXT ([facility]) Name Value Range Interpretation Code Description Data Kaye rce(s) Supporting Document(s) Hemoglobin A1c/Hemoglobin.total in Blood 8.0 % Hemoglobin a1C ROMAN ([facility]) estimated average glucose 183 mg/dL 60-110 Above high norm al Estimated Average Glucose [facility]EXT ([facility]) ID Date Data Source [id number] 06/25/2020 04:56:00 PM EDT ROMAN ([facility]) Name Value Range Interpretation Code Description Data Kaye rce(s) Supporting Document(s) lipase 59 U/L 73-393 Below low normal Lipase ROMAN ( [facility]) ID Date Data Source [id number] 06/25/2020 04:56:00 PM EDT [facility]EXT ([facility]) Name Value Range Interpretation Code Description Data Kaye rce(s) Supporting Document(s) glucose, fasting 172 mg/dL 70-100 Above high normal Glucose, Fas ting ROMAN ([facility]) blood urea nitrogen 32 mg/dL 7-18 Above high normal Blood Ure a Nitrogen ROMAN ([facility]) creatinine for GFR 1.24 mg/dL 0.55-1.30 Creatinine for GF R ROMAN ([facility]) glomerular filtration rate >58 Glomerula r Filtration Rate ROMAN ([facility]) sodium level 133 mEq/L 136-145 Below low normal Sodium Level ATHE ([facility]) potassium serum 4.0 mEq/L 3.5-5.1 Potassium Serum ATHE NA ([facility]) chloride level 98 mEq/L 98-107 Chloride Level ROMAN ([facility]) carbon dioxide level 25 mEq/L 21-32 Carbon Dioxide Level ROMAN ([facility]) anion gap 10 mEq/L 8-16 Anion Gap ROMAN ([facility]) calcium level 9.3 mg/dL 8.5-10.1 Calcium Level HEXT ( [facility]) ID Date Data Source [id number] 06/25/2020 04:56:00 PM EDT [facility]EXT ([facility]) Name Value Range Interpretation Code Description Data Kaye rce(s) Supporting Document(s) AST/SGOT 14 U/L 7-37 AST/SGOT ROMAN ([facility]) ALT/SGPT 15 U/L 12-78 ALT/SGPT ROMAN ([facility]) alkaline phosphatase 71 U/L 45-117 Alkaline Phosph atase ROMAN ([facility]) bilirubin,total 1.0 mg/dL 0.2-1.0 Bilirubin,total ATHE NA ([facility]) bilirubin,direct 0.3 mg/dL 0.0-0.2 Above high normal Bilirubin,di rect ROMAN ([facility]) total protein 7.6 gm/dL 6.4-8.2 Total Protein ROMAN ( [facility]) albumin 4.1 gm/dL 3.2-5.2 Albumin ROMAN ([facility]) albumin/globulin ratio 1.2-2.2 Albumin/globu gerard Ratio ROMAN ([facility]) ID Date Data Source [id number] 06/25/2020 04:56:00 PM EDT ROMAN ([facility]) Name Value Range Interpretation Code Description Data Kaye rce(s) Supporting Document(s) lactic acid sepsis protocol 1.4 mmol/L 0.4-2.0 Lactic A emmanuelle Sepsis Protocol ROMAN ([facility]) ID Date Data Source [id number] 06/25/2020 04:56:00 PM EDT ROMAN ([facility]) Name Value Range Interpretation Code Description Data Kaye rce(s) Supporting Document(s) white blood count 6.7 10 4.0-10.0 White Blood Count ROMAN ([facility]) red blood count 4.14 10 4.00-5.40 Red Blood Count ATHE NA ([facility]) hemoglobin 11.8 g/dL 12.0-15.5 Below low normal Hemoglobin ROMAN ( [facility]) hematocrit 35.6 % 36.0-47.0 Below low normal Hematocrit ROMAN ( [facility]) mean corpuscular volume 86.0 fL 80.0-96.0 Mean Corpusc ular Volume ROMAN ([facility]) mean corpuscular hemoglobin 28.5 pg 27.0-33.0 Mean Cor puscular Hemoglobin ROMAN ([facility]) mean corpuscular HGB conc 33.1 g/dL 32.0-36.5 Mean Corpu scular HGB Conc ROMAN ([facility]) red cell distribution width 15.1 % 11.5-14.5 Above high no rmal Red Cell Distribution Width ROMAN ([facility]) platelet count, automated 253 10 150-450 Platelet C ount, Automated ROMAN ([facility]) neutrophils % 72.6 % 36.0-66.0 Above high normal Neutrophils % A THENA ([facility]) lymph % 18.9 % 24.0-44.0 Below low normal Lymph % HEXT ( [facility]) mono % 7.9 % 2.0-8.0 Wake % ROMAN ([facility]) eos % 0.1 % 0.0-3.0 Eos % ROMAN ([facility]) baso % 0.4 % 0.0-1.0 Baso % ROMAN ([facility]) immature granulocyte % 0.1 % 0-3.0 Immature Gran ulocyte % ROMAN ([facility]) nucleated red blood cell % 0.0 % 0-0 Nucleated Red Blood Cell % ROMAN ([facility]) neutrophils # 4.9 10 1.5-8.5 Neutrophils # ROMAN ( [facility]) lymph # 1.3 10 1.5-5.0 Below low normal Lymph # ROMAN ( [facility]) mono # 0.5 10 0.0-0.8 Wake # ROMAN ([facility]) eos # 0.0 10 0.0-0.5 Eos # ROMAN ([facility]) baso # 0.0 10 0.0-0.2 Baso # ROMAN ([facility]) ID Date Data Source [id number] 06/25/2020 04:56:00 PM EDT HEXT ([facility]) Name Value Range Interpretation Code Description Data Kaye rce(s) Supporting Document(s) Hemoglobin A1c/Hemoglobin.total in Blood 8.0 % Hemoglobin a1C ROMAN ([facility]) estimated average glucose 183 mg/dL 60-110 Above high norm al Estimated Average Glucose [facility]EXT ([facility]) ID Date Data Source [id number] 06/25/2020 04:56:00 PM EDT ROMAN ([facility]) Name Value Range Interpretation Code Description Data Kaye rce(s) Supporting Document(s) lipase 59 U/L 73-393 Below low normal Lipase HEXT ( [facility]) ID Date Data Source [id number] 06/25/2020 04:56:00 PM EDT HEXT ([facility]) Name Value Range Interpretation Code Description Data Kaye rce(s) Supporting Document(s) glucose, fasting 172 mg/dL 70-100 Above high normal Glucose, Fas ting ROMAN ([facility]) blood urea nitrogen 32 mg/dL 7-18 Above high normal Blood Ure a Nitrogen ROMAN ([facility]) creatinine for GFR 1.24 mg/dL 0.55-1.30 Creatinine for GF R ROMAN ([facility]) glomerular filtration rate >58 Glomerula r Filtration Rate ROMAN ([facility]) sodium level 133 mEq/L 136-145 Below low normal Sodium Level ATHE NA ([facility]) potassium serum 4.0 mEq/L 3.5-5.1 Potassium Serum ATHE NA ([facility]) chloride level 98 mEq/L 98-107 Chloride Level ROMAN ([facility]) carbon dioxide level 25 mEq/L 21-32 Carbon Dioxide Level ROMAN ([facility]) anion gap 10 mEq/L 8-16 Anion Gap ROMAN ([facility]) calcium level 9.3 mg/dL 8.5-10.1 Calcium Level HEXT ( [facility]) ID Date Data Source [id number] 06/25/2020 04:56:00 PM EDT ROMAN ([facility]) Name Value Range Interpretation Code Description Data Kaye rce(s) Supporting Document(s) AST/SGOT 14 U/L 7-37 AST/SGOT ROMAN ([facility]) ALT/SGPT 15 U/L 12-78 ALT/SGPT ROMAN ([facility]) alkaline phosphatase 71 U/L 45-117 Alkaline Phosph atase ROMAN ([facility]) bilirubin,total 1.0 mg/dL 0.2-1.0 Bilirubin,total ATHE NA ([facility]) bilirubin,direct 0.3 mg/dL 0.0-0.2 Above high normal Bilirubin,di rect ROMAN ([facility]) total protein 7.6 gm/dL 6.4-8.2 Total Protein ROMAN ( [facility]) albumin 4.1 gm/dL 3.2-5.2 Albumin ROMAN ([facility]) albumin/globulin ratio 1.2-2.2 Albumin/globu gerard Ratio ROMAN ([facility]) ID Date Data Source [id number] 06/25/2020 04:56:00 PM EDT ROMAN ([facility]) Name Value Range Interpretation Code Description Data Kaye rce(s) Supporting Document(s) lactic acid sepsis protocol 1.4 mmol/L 0.4-2.0 Lactic A emmanuelle Sepsis Protocol ROMAN ([facility]) ID Date Data Source [id number] 06/25/2020 04:56:00 PM EDT [facility]EXT ([facility]) Name Value Range Interpretation Code Description Data Kaye rce(s) Supporting Document(s) white blood count 6.7 10 4.0-10.0 White Blood Count ROMAN ([facility]) red blood count 4.14 10 4.00-5.40 Red Blood Count ATHE NA ([facility]) hemoglobin 11.8 g/dL 12.0-15.5 Below low normal Hemoglobin ROMAN ( [facility]) hematocrit 35.6 % 36.0-47.0 Below low normal Hematocrit ROMAN ( [facility]) mean corpuscular volume 86.0 fL 80.0-96.0 Mean Corpusc ular Volume ROMAN ([facility]) mean corpuscular hemoglobin 28.5 pg 27.0-33.0 Mean Cor puscular Hemoglobin ROMAN ([facility]) mean corpuscular HGB conc 33.1 g/dL 32.0-36.5 Mean Corpu scular HGB Conc ROMAN ([facility]) red cell distribution width 15.1 % 11.5-14.5 Above high no rmal Red Cell Distribution Width ROMAN ([facility]) platelet count, automated 253 10 150-450 Platelet C ount, Automated ROMAN ([facility]) neutrophils % 72.6 % 36.0-66.0 Above high normal Neutrophils % A THENA ([facility]) lymph % 18.9 % 24.0-44.0 Below low normal Lymph % ROMAN ( [facility]) mono % 7.9 % 2.0-8.0 Wake % ROMAN ([facility]) eos % 0.1 % 0.0-3.0 Eos % ROMAN ([facility]) baso % 0.4 % 0.0-1.0 Baso % ROMAN ([facility]) immature granulocyte % 0.1 % 0-3.0 Immature Gran ulocyte % ROMAN ([facility]) nucleated red blood cell % 0.0 % 0-0 Nucleated Red Blood Cell % ROMAN ([facility]) neutrophils # 4.9 10 1.5-8.5 Neutrophils # ROMAN ( [facility]) lymph # 1.3 10 1.5-5.0 Below low normal Lymph # ROMAN ( [facility]) mono # 0.5 10 0.0-0.8 Wake # ROMAN ([facility]) eos # 0.0 10 0.0-0.5 Eos # ROMAN ([facility]) baso # 0.0 10 0.0-0.2 Baso # ROMAN ([facility]) ID Date Data Source [id number] 06/25/2020 04:56:00 PM EDT [facility]) Name Value Range Interpretation Code Description Data Kaye rce(s) Supporting Document(s) Hemoglobin A1c/Hemoglobin.total in Blood 8.0 % Hemoglobin a1C HEXT ([facility]) estimated average glucose 183 mg/dL 60-110 Above high norm al Estimated Average Glucose [facility]) ID Date Data Source [id number] 06/25/2020 04:56:00 PM EDT [facility]) Name Value Range Interpretation Code Description Data Kaye rce(s) Supporting Document(s) lipase 59 U/L 73-393 Below low normal Lipase [facility]) ID Date Data Source [id number] 06/25/2020 04:56:00 PM EDT [facility]) Name Value Range Interpretation Code Description Data Kaye rce(s) Supporting Document(s) glucose, fasting 172 mg/dL 70-100 Above high normal Glucose, Fas ting ROMAN ([facility]) blood urea nitrogen 32 mg/dL 7-18 Above high normal Blood Ure a Nitrogen ROMAN ([facility]) creatinine for GFR 1.24 mg/dL 0.55-1.30 Creatinine for GF R ROMAN ([facility]) glomerular filtration rate >58 Glomerula r Filtration Rate ROMAN ([facility]) sodium level 133 mEq/L 136-145 Below low normal Sodium Level ATHE NA ([facility]) potassium serum 4.0 mEq/L 3.5-5.1 Potassium Serum ATHE NA ([facility]) chloride level 98 mEq/L 98-107 Chloride Level ROMAN ([facility]) carbon dioxide level 25 mEq/L 21-32 Carbon Dioxide Level ROMAN ([facility]) anion gap 10 mEq/L 8-16 Anion Gap ROMAN ([facility]) calcium level 9.3 mg/dL 8.5-10.1 Calcium Level ROMAN ( [facility]) ID Date Data Source [id number] 06/25/2020 04:56:00 PM EDT ROMAN ([facility]) Name Value Range Interpretation Code Description Data Kaye rce(s) Supporting Document(s) AST/SGOT 14 U/L 7-37 AST/SGOT ROMAN ([facility]) ALT/SGPT 15 U/L 12-78 ALT/SGPT ROMAN ([facility]) alkaline phosphatase 71 U/L 45-117 Alkaline Phosph atase ROMAN ([facility]) bilirubin,total 1.0 mg/dL 0.2-1.0 Bilirubin,total ATHE ([facility]) bilirubin,direct 0.3 mg/dL 0.0-0.2 Above high normal Bilirubin,di rect ROMAN ([facility]) total protein 7.6 gm/dL 6.4-8.2 Total Protein ROMAN ( [facility]) albumin 4.1 gm/dL 3.2-5.2 Albumin ROMAN ([facility]) albumin/globulin ratio 1.2-2.2 Albumin/globu gerard Ratio ROMAN ([facility]) ID Date Data Source [id number] 06/25/2020 04:56:00 PM EDT ROMAN ([facility]) Name Value Range Interpretation Code Description Data Kaye rce(s) Supporting Document(s) lactic acid sepsis protocol 1.4 mmol/L 0.4-2.0 Lactic A emmanuelle Sepsis Protocol ROMAN ([facility]) ID Date Data Source [id number] 06/25/2020 04:56:00 PM EDT HEXT ([facility]) Name Value Range Interpretation Code Description Data Kaye rce(s) Supporting Document(s) white blood count 6.7 10 4.0-10.0 White Blood Count ROMAN ([facility]) red blood count 4.14 10 4.00-5.40 Red Blood Count ATHE NA ([facility]) hemoglobin 11.8 g/dL 12.0-15.5 Below low normal Hemoglobin ROMAN ( [facility]) hematocrit 35.6 % 36.0-47.0 Below low normal Hematocrit ROMAN ( [facility]) mean corpuscular volume 86.0 fL 80.0-96.0 Mean Corpusc ular Volume ROMAN ([facility]) mean corpuscular hemoglobin 28.5 pg 27.0-33.0 Mean Cor puscular Hemoglobin ROMAN ([facility]) mean corpuscular HGB conc 33.1 g/dL 32.0-36.5 Mean Corpu scular HGB Conc ROMAN ([facility]) red cell distribution width 15.1 % 11.5-14.5 Above high no rmal Red Cell Distribution Width ROMAN ([facility]) platelet count, automated 253 10 150-450 Platelet C ount, Automated ROMAN ([facility]) neutrophils % 72.6 % 36.0-66.0 Above high normal Neutrophils % A THENA ([facility]) lymph % 18.9 % 24.0-44.0 Below low normal Lymph % ROMAN ( [facility]) mono % 7.9 % 2.0-8.0 Wake % ROMAN ([facility]) eos % 0.1 % 0.0-3.0 Eos % ROMAN ([facility]) baso % 0.4 % 0.0-1.0 Baso % ROMAN ([facility]) immature granulocyte % 0.1 % 0-3.0 Immature Gran ulocyte % ROMAN ([facility]) nucleated red blood cell % 0.0 % 0-0 Nucleated Red Blood Cell % ROMAN ([facility]) neutrophils # 4.9 10 1.5-8.5 Neutrophils # ROMAN ( [facility]) lymph # 1.3 10 1.5-5.0 Below low normal Lymph # ROMAN ( [facility]) mono # 0.5 10 0.0-0.8 Wake # ROMAN ([facility]) eos # 0.0 10 0.0-0.5 Eos # ROMAN ([facility]) baso # 0.0 10 0.0-0.2 Baso # ROMAN ([facility]) ID Date Data Source [id number] 06/25/2020 04:56:00 PM EDT [facility] ([facility]) Name Value Range Interpretation Code Description Data Kaye rce(s) Supporting Document(s) Hemoglobin A1c/Hemoglobin.total in Blood 8.0 % Hemoglobin a1C [facility] ([facility]) estimated average glucose 183 mg/dL 60-110 Above high norm al Estimated Average Glucose [facility] ([facility]) ID Date Data Source [id number] 06/25/2020 04:56:00 PM EDT [facility] ([facility]) Name Value Range Interpretation Code Description Data Kaye rce(s) Supporting Document(s) lipase 59 U/L 73-393 Below low normal Lipase [facility] ( [facility]) ID Date Data Source [id number] 06/25/2020 04:56:00 PM EDT [facility] ([facility]) Name Value Range Interpretation Code Description Data Kaye rce(s) Supporting Document(s) glucose, fasting 172 mg/dL 70-100 Above high normal Glucose, Fas ting ROMAN ([facility]) blood urea nitrogen 32 mg/dL 7-18 Above high normal Blood Ure a Nitrogen [facility] ([facility]) creatinine for GFR 1.24 mg/dL 0.55-1.30 Creatinine for GF R ROMAN ([facility]) glomerular filtration rate >58 Glomerula r Filtration Rate ROMAN ([facility]) sodium level 133 mEq/L 136-145 Below low normal Sodium Level ATHE NA ([facility]) potassium serum 4.0 mEq/L 3.5-5.1 Potassium Serum ATHE NA ([facility]) chloride level 98 mEq/L 98-107 Chloride Level ROMAN ([facility]) carbon dioxide level 25 mEq/L 21-32 Carbon Dioxide Level ROMAN ([facility]) anion gap 10 mEq/L 8-16 Anion Gap [facility] ([facility]) calcium level 9.3 mg/dL 8.5-10.1 Calcium Level ROMAN ( [facility]) ID Date Data Source [id number] 06/25/2020 04:56:00 PM EDT [facility] ([facility]) Name Value Range Interpretation Code Description Data Kaye rce(s) Supporting Document(s) AST/SGOT 14 U/L 7-37 AST/SGOT [facility] ([facility]) ALT/SGPT 15 U/L 12-78 ALT/SGPT [facility] ([facility]) alkaline phosphatase 71 U/L 45-117 Alkaline Phosph atase ROM[facility] ([facility]) bilirubin,total 1.0 mg/dL 0.2-1.0 Bilirubin,total ATHE NA ([facility]) bilirubin,direct 0.3 mg/dL 0.0-0.2 Above high normal Bilirubin,di rect ROMAN ([facility]) total protein 7.6 gm/dL 6.4-8.2 Total Protein ROMAN ( [facility]) albumin 4.1 gm/dL 3.2-5.2 Albumin ROM[facility] ([facility]) albumin/globulin ratio 1.2-2.2 Albumin/globu gerard Ratio ROMAN ([facility]) ID Date Data Source [id number] 06/25/2020 04:56:00 PM EDT [facility] ([facility]) Name Value Range Interpretation Code Description Data Kaye rce(s) Supporting Document(s) lactic acid sepsis protocol 1.4 mmol/L 0.4-2.0 Lactic A emmanuelle Sepsis Protocol [facility]AN ([facility]) ID Date Data Source [id number] 06/25/2020 04:56:00 PM EDT ROMAN ([facility]) Name Value Range Interpretation Code Description Data Kaye rce(s) Supporting Document(s) white blood count 6.7 10 4.0-10.0 White Blood Count [facility] ([facility]) red blood count 4.14 10 4.00-5.40 Red Blood Count ATHE NA ([facility]) hemoglobin 11.8 g/dL 12.0-15.5 Below low normal Hemoglobin ROMAN ( [facility]) hematocrit 35.6 % 36.0-47.0 Below low normal Hematocrit ROM[facility] ( [facility]) mean corpuscular volume 86.0 fL 80.0-96.0 Mean Corpusc ular Volume ROMAN ([facility]) mean corpuscular hemoglobin 28.5 pg 27.0-33.0 Mean Cor puscular Hemoglobin ROM[facility] ([facility]) mean corpuscular HGB conc 33.1 g/dL 32.0-36.5 Mean Corpu scular HGB Conc ROM[facility] ([facility]) red cell distribution width 15.1 % 11.5-14.5 Above high no rmal Red Cell Distribution Width ROMAN ([facility]) platelet count, automated 253 10 150-450 Platelet C ount, Automated ROM[facility] ([facility]) neutrophils % 72.6 % 36.0-66.0 Above high normal Neutrophils % A THENA ([facility]) lymph % 18.9 % 24.0-44.0 Below low normal Lymph % ROMAN ( [facility]) mono % 7.9 % 2.0-8.0 Wake % ROMAN ([facility]) eos % 0.1 % 0.0-3.0 Eos % ROM[facility] ([facility]) baso % 0.4 % 0.0-1.0 Baso % ROM[facility] ([facility]) immature granulocyte % 0.1 % 0-3.0 Immature Gran ulocyte % ROMAN ([facility]) nucleated red blood cell % 0.0 % 0-0 Nucleated Red Blood Cell % [facility] ([facility]) neutrophils # 4.9 10 1.5-8.5 Neutrophils # ROMAN ( [facility]) lymph # 1.3 10 1.5-5.0 Below low normal Lymph # ROMAN ( [facility]) mono # 0.5 10 0.0-0.8 Wake # ROMAN ([facility]) eos # 0.0 10 0.0-0.5 Eos # [facility] ([facility]) baso # 0.0 10 0.0-0.2 Baso # [facility] ([facility]) ID Date Data Source [id number] 06/25/2020 04:56:00 PM EDT [facility] ([facility]) Name Value Range Interpretation Code Description Data Kaye rce(s) Supporting Document(s) Hemoglobin A1c/Hemoglobin.total in Blood 8.0 % Hemoglobin a1C [facility] ([facility]) estimated average glucose 183 mg/dL 60-110 Above high norm al Estimated Average Glucose [facility] ([facility]) ID Date Data Source [id number] 06/25/2020 04:56:00 PM EDT [facility] ([facility]) Name Value Range Interpretation Code Description Data Kaye rce(s) Supporting Document(s) lipase 59 U/L 73-393 Below low normal Lipase [facility] ( [facility]) ID Date Data Source [id number] 06/25/2020 04:56:00 PM EDT [facility] ([facility]) Name Value Range Interpretation Code Description Data Kaye rce(s) Supporting Document(s) glucose, fasting 172 mg/dL 70-100 Above high normal Glucose, Fas ting ROMAN ([facility]) blood urea nitrogen 32 mg/dL 7-18 Above high normal Blood Ure a Nitrogen [facility] ([facility]) creatinine for GFR 1.24 mg/dL 0.55-1.30 Creatinine for GF R [facility] ([facility]) glomerular filtration rate >58 Glomerula r Filtration Rate ROM[facility] ([facility]) sodium level 133 mEq/L 136-145 Below low normal Sodium Level ATHE NA ([facility]) potassium serum 4.0 mEq/L 3.5-5.1 Potassium Serum ATHE NA ([facility]) chloride level 98 mEq/L 98-107 Chloride Level ROM[facility] ([facility]) carbon dioxide level 25 mEq/L 21-32 Carbon Dioxide Level [facility] ([facility]) anion gap 10 mEq/L 8-16 Anion Gap [facility] ([facility]) calcium level 9.3 mg/dL 8.5-10.1 Calcium Level ROMAN ( [facility]) ID Date Data Source [id number] 06/25/2020 04:56:00 PM EDT [facility] ([facility]) Name Value Range Interpretation Code Description Data Kaye rce(s) Supporting Document(s) AST/SGOT 14 U/L 7-37 AST/SGOT [facility] ([facility]) ALT/SGPT 15 U/L 12-78 ALT/SGPT [facility] ([facility]) alkaline phosphatase 71 U/L 45-117 Alkaline Phosph atase ROM[facility] ([facility]) bilirubin,total 1.0 mg/dL 0.2-1.0 Bilirubin,total ATHE NA ([facility]) bilirubin,direct 0.3 mg/dL 0.0-0.2 Above high normal Bilirubin,di rect [facility] ([facility]) total protein 7.6 gm/dL 6.4-8.2 Total Protein ROMAN ( [facility]) albumin 4.1 gm/dL 3.2-5.2 Albumin [facility] ([facility]) albumin/globulin ratio 1.2-2.2 Albumin/globu gerard Ratio ROMAN ([facility]) ID Date Data Source [id number] 06/25/2020 04:56:00 PM EDT [facility] ([facility]) Name Value Range Interpretation Code Description Data Kaye rce(s) Supporting Document(s) lactic acid sepsis protocol 1.4 mmol/L 0.4-2.0 Lactic A emmanuelle Sepsis Protocol [facility] ([facility]) ID Date Data Source [id number] 06/25/2020 04:56:00 PM EDT [facility] ([facility]) Name Value Range Interpretation Code Description Data Kaye rce(s) Supporting Document(s) white blood count 6.7 10 4.0-10.0 White Blood Count [facility] ([facility]) red blood count 4.14 10 4.00-5.40 Red Blood Count ATHE ([facility]) hemoglobin 11.8 g/dL 12.0-15.5 Below low normal Hemoglobin ROMAN ( [facility]) hematocrit 35.6 % 36.0-47.0 Below low normal Hematocrit ROM[facility] ( [facility]) mean corpuscular volume 86.0 fL 80.0-96.0 Mean Corpusc ular Volume ROMAN ([facility]) mean corpuscular hemoglobin 28.5 pg 27.0-33.0 Mean Cor puscular Hemoglobin ROMAN ([facility]) mean corpuscular HGB conc 33.1 g/dL 32.0-36.5 Mean Corpu scular HGB Conc ROMAN ([facility]) red cell distribution width 15.1 % 11.5-14.5 Above high no rmal Red Cell Distribution Width ROMAN ([facility]) platelet count, automated 253 10 150-450 Platelet C ount, Automated ROM[facility] ([facility]) neutrophils % 72.6 % 36.0-66.0 Above high normal Neutrophils % A THENA ([facility]) lymph % 18.9 % 24.0-44.0 Below low normal Lymph % ROMAN ( [facility]) mono % 7.9 % 2.0-8.0 Wake % ROMAN ([facility]) eos % 0.1 % 0.0-3.0 Eos % [facility] ([facility]) baso % 0.4 % 0.0-1.0 Baso % ROM[facility] ([facility]) immature granulocyte % 0.1 % 0-3.0 Immature Gran ulocyte % ROMAN ([facility]) nucleated red blood cell % 0.0 % 0-0 Nucleated Red Blood Cell % [facility] ([facility]) neutrophils # 4.9 10 1.5-8.5 Neutrophils # ROMAN ( [facility]) lymph # 1.3 10 1.5-5.0 Below low normal Lymph # ROMAN ( [facility]) mono # 0.5 10 0.0-0.8 Wake # ROMAN ([facility]) eos # 0.0 10 0.0-0.5 Eos # ROMAN ([facility]) baso # 0.0 10 0.0-0.2 Baso # [facility] ([facility]) ID Date Data Source [id number] 06/25/2020 04:56:00 PM EDT [facility] ([facility]) Name Value Range Interpretation Code Description Data Kaye rce(s) Supporting Document(s) Hemoglobin A1c/Hemoglobin.total in Blood 8.0 % Hemoglobin a1C [facility] ([facility]) estimated average glucose 183 mg/dL 60-110 Above high norm al Estimated Average Glucose [facility] ([facility]) ID Date Data Source [id number] 06/25/2020 04:56:00 PM EDT [facility] ([facility]) Name Value Range Interpretation Code Description Data Kyae rce(s) Supporting Document(s) lipase 59 U/L 73-393 Below low normal Lipase [facility] ( [facility]) ID Date Data Source [id number] 06/25/2020 04:56:00 PM EDT [facility] ([facility]) Name Value Range Interpretation Code Description Data Kaye rce(s) Supporting Document(s) glucose, fasting 172 mg/dL 70-100 Above high normal Glucose, Fas ting ROMAN ([facility]) blood urea nitrogen 32 mg/dL 7-18 Above high normal Blood Ure a Nitrogen [facility] ([facility]) creatinine for GFR 1.24 mg/dL 0.55-1.30 Creatinine for GF R [facility] ([facility]) glomerular filtration rate >58 Glomerula r Filtration Rate [facility] ([facility]) sodium level 133 mEq/L 136-145 Below low normal Sodium Level ATHE ([facility]) potassium serum 4.0 mEq/L 3.5-5.1 Potassium Serum ATHE NA ([facility]) chloride level 98 mEq/L 98-107 Chloride Level ROMAN ([facility]) carbon dioxide level 25 mEq/L 21-32 Carbon Dioxide Level [facility] ([facility]) anion gap 10 mEq/L 8-16 Anion Gap [facility] ([facility]) calcium level 9.3 mg/dL 8.5-10.1 Calcium Level ROMAN ( [facility]) ID Date Data Source [id number] 06/25/2020 04:56:00 PM EDT [facility] ([facility]) Name Value Range Interpretation Code Description Data Kaye rce(s) Supporting Document(s) AST/SGOT 14 U/L 7-37 AST/SGOT [facility] ([facility]) ALT/SGPT 15 U/L 12-78 ALT/SGPT [facility] ([facility]) alkaline phosphatase 71 U/L 45-117 Alkaline Phosph atase ROM[facility] ([facility]) bilirubin,total 1.0 mg/dL 0.2-1.0 Bilirubin,total ATHE ([facility]) bilirubin,direct 0.3 mg/dL 0.0-0.2 Above high normal Bilirubin,di rect [facility] ([facility]) total protein 7.6 gm/dL 6.4-8.2 Total Protein ROMAN ( [facility]) albumin 4.1 gm/dL 3.2-5.2 Albumin [facility] ([facility]) albumin/globulin ratio 1.2-2.2 Albumin/globu gerard Ratio [facility] ([facility]) ID Date Data Source [id number] 06/25/2020 04:56:00 PM EDT [facility] ([facility]) Name Value Range Interpretation Code Description Data Kaye rce(s) Supporting Document(s) lactic acid sepsis protocol 1.4 mmol/L 0.4-2.0 Lactic A emmanuelle Sepsis Protocol [facility]AN ([facility]) ID Date Data Source [id number] 06/25/2020 04:56:00 PM EDT [facility] ([facility]) Name Value Range Interpretation Code Description Data Kaye rce(s) Supporting Document(s) white blood count 6.7 10 4.0-10.0 White Blood Count [facility] ([facility]) red blood count 4.14 10 4.00-5.40 Red Blood Count ATHE ([facility]) hemoglobin 11.8 g/dL 12.0-15.5 Below low normal Hemoglobin ROMAN ( [facility]) hematocrit 35.6 % 36.0-47.0 Below low normal Hematocrit ROMAN ( [facility]) mean corpuscular volume 86.0 fL 80.0-96.0 Mean Corpusc ular Volume ROMAN ([facility]) mean corpuscular hemoglobin 28.5 pg 27.0-33.0 Mean Cor puscular Hemoglobin ROMAN ([facility]) mean corpuscular HGB conc 33.1 g/dL 32.0-36.5 Mean Corpu scular HGB Conc ROMAN ([facility]) red cell distribution width 15.1 % 11.5-14.5 Above high no rmal Red Cell Distribution Width ROMAN ([facility]) platelet count, automated 253 10 150-450 Platelet C ount, Automated ROM[facility] ([facility]) neutrophils % 72.6 % 36.0-66.0 Above high normal Neutrophils % A THENA ([facility]) lymph % 18.9 % 24.0-44.0 Below low normal Lymph % ROMAN ( [facility]) mono % 7.9 % 2.0-8.0 [place] % ROMAN ([facility]) eos % 0.1 % 0.0-3.0 Eos % ROMAN ([facility]) baso % 0.4 % 0.0-1.0 Baso % ROM[facility] ([facility]) immature granulocyte % 0.1 % 0-3.0 Immature Gran ulocyte % ROMAN ([facility]) nucleated red blood cell % 0.0 % 0-0 Nucleated Red Blood Cell % [facility] ([facility]) neutrophils # 4.9 10 1.5-8.5 Neutrophils # ROMAN ( [facility]) lymph # 1.3 10 1.5-5.0 Below low normal Lymph # ROMAN ( [facility]) mono # 0.5 10 0.0-0.8 Wake # ROMAN ([facility]) eos # 0.0 10 0.0-0.5 Eos # ROMAN ([facility]) baso # 0.0 10 0.0-0.2 Baso # [facility] ([facility]) ID Date Data Source [id number] 05/30/2020 02:18:00 PM EST [facility] ([facility]) Name Value Range Interpretation Code Description Data Kaye rce(s) Supporting Document(s) bedside glucose 347 mg/dL 70-105 Above high normal Bedside Gluco se ROMAN ([facility]) ID Date Data Source [id number] 05/30/2020 02:18:00 PM EST [facility] ([facility]) Name Value Range Interpretation Code Description Data Kaye rce(s) Supporting Document(s) bedside glucose 347 mg/dL 70-105 Above high normal Bedside Gluco se [facility]AN ([facility]) ID Date Data Source [id number] 05/30/2020 02:18:00 PM EST [facility] ([facility]) Name Value Range Interpretation Code Description Data Kaye rce(s) Supporting Document(s) bedside glucose 347 mg/dL 70-105 Above high normal Bedside Gluco se [facility]AN ([facility]) ID Date Data Source [id number] 05/30/2020 02:18:00 PM EST [facility] ([facility]) Name Value Range Interpretation Code Description Data Kaye rce(s) Supporting Document(s) bedside glucose 347 mg/dL 70-105 Above high normal Bedside Gluco se [facility]AN ([facility]) ID Date Data Source [id number] 05/30/2020 02:18:00 PM EST [facility] ([facility]) Name Value Range Interpretation Code Description Data Kaye rce(s) Supporting Document(s) bedside glucose 347 mg/dL 70-105 Above high normal Bedside Gluco se [facility]AN ([facility]) ID Date Data Source [id number] 05/30/2020 02:18:00 PM EST [facility] ([facility]) Name Value Range Interpretation Code Description Data Kaye rce(s) Supporting Document(s) bedside glucose 347 mg/dL 70-105 Above high [facility] Data Source [id number] 05/30/2020 09:45:00 AM EST [facility] ([facility]) Name Value Range Interpretation Code Description Data Kaye rce(s) Supporting Document(s) bedside glucose 218 mg/dL 70-105 Above high normal Bedside Gluco se [facility] ([facility]) ID Date Data Source [id number] 05/30/2020 09:45:00 AM [facility] Name Value Range Interpretation Code Description Data Kaye rce(s) Supporting Document(s) bedside glucose 218 mg/dL 70-105 Above high normal Bedside Gluco se [facility] ([facility]) ID Date Data Source [id number] 05/30/2020 09:45:00 AM [facility] Name Value Range Interpretation Code Description Data Kaye rce(s) Supporting Document(s) bedside glucose 218 mg/dL 70-105 Above high normal [facility] Date Data Source [id number] 05/30/2020 09:45:00 AM EST [facility] ([facility]) Name Value Range Interpretation Code Description Data Kaye rce(s) Supporting Document(s) bedside glucose 218 mg/dL 70-105 Above high normal Bedside Gluco se [facility] ([facility]) ID Date Data Source [id number] 05/30/2020 09:45:00 AM EST [facility] ([facility]) Name Value Range Interpretation Code Description Data Kaye rce(s) Supporting Document(s) bedside glucose 218 mg/dL 70-105 Above high normal Bedside Gluco se [facility] ([facility]) ID Date Data Source [id number] 05/30/2020 09:45:00 AM EST [facility] ([facility]) Name Value Range Interpretation Code Description Data Kaye rce(s) Supporting Document(s) bedside glucose 218 mg/dL 70-105 Above high normal Bedside Gluco se [facility] ([facility]) ID Date Data Source [id number] 05/19/2020 05:04:00 PM EST [facility] ([facility]) Name Value Range Interpretation Code Description Data Akye rce(s) Supporting Document(s) bedside glucose 203 mg/dL 70-105 Above high normal Bedside Gluco se [facility] ([facility]) ID Date Data Source [id number] 05/19/2020 05:04:00 PM EST [facility] ([facility]) Name Value Range Interpretation Code Description Data Kaye rce(s) Supporting Document(s) bedside glucose 203 mg/dL 70-105 Above high normal [facility] Date Data Source [id number] 05/19/2020 05:04:00 PM EST [facility] ([facility]) Name Value Range Interpretation Code Description Data Kaye rce(s) Supporting Document(s) bedside glucose 203 mg/dL 70-105 Above high normal Bedside Gluco se [facility] ([facility]) ID Date Data Source [id number] 05/19/2020 05:04:00 PM EST [facility] ([facility]) Name Value Range Interpretation Code Description Data Kaye rce(s) Supporting Document(s) bedside glucose 203 mg/dL 70-105 Above high normal Bedside Gluco se [facility] ([facility]) ID Date Data Source [id number] 05/19/2020 05:04:00 PM EST [facility] ([facility]) Name Value Range Interpretation Code Description Data Kaye rce(s) Supporting Document(s) bedside glucose 203 mg/dL 70-105 Above high normal Bedside Gluco se [facility] ([facility]) ID Date Data Source [id number] 05/19/2020 05:04:00 PM EST [facility] ([facility]) Name Value Range Interpretation Code Description Data Kaye rce(s) Supporting Document(s) bedside glucose 203 mg/dL 70-105 Above high normal Bedside Gluco se [facility] ([facility]) ID Date Data Source [id number] 05/19/2020 03:32:00 PM EST [facility] ([facility]) Name Value Range Interpretation Code Description Data Kaye rce(s) Supporting Document(s) istat lactate 0.4-2.0 Istat Lactate ROMAN ( [facility]) ID Date Data Source [id number] 05/19/2020 03:32:00 PM EST [facility] ([facility]) Name Value Range Interpretation Code Description Data Kaye rce(s) Supporting Document(s) istat lactate 0.4-2.0 Istat Lactate [facility] ( [facility]) ID Date Data Source [id number] 05/19/2020 03:32:00 PM EST [facility] ([facility]) Name Value Range Interpretation Code Description Data Kaye rce(s) Supporting Document(s) istat lactate 0.4-2.0 Istat Lactate ROMAN ( [facility]) ID Date Data Source [id number] 05/19/2020 03:32:00 PM EST [facility] ([facility]) Name Value Range Interpretation Code Description Data Kaye rce(s) Supporting Document(s) istat lactate 0.4-2.0 Istat Lactate ROMAN ( [facility]) ID Date Data Source [id number] 05/19/2020 03:32:00 PM EST [facility] ([facility]) Name Value Range Interpretation Code Description Data Kaye rce(s) Supporting Document(s) istat lactate 0.4-2.0 Istat Lactate ROMAN ( [facility]) ID Date Data Source [id number] 05/19/2020 03:32:00 PM EST [facility] ([facility]) Name Value Range Interpretation Code Description Data Kaye rce(s) Supporting Document(s) istat lactate 0.4-2.0 Istat Lactate ROMAN ( [facility]) ID Date Data Source [id number] 05/19/2020 03:12:00 PM EST [facility] ([facility]) Name Value Range Interpretation Code Description Data Kaye rce(s) Supporting Document(s) istat troponin 0.00 NG/mL 0.00-0.08 Istat Troponin [facility] ([facility]) ID Date Data Source [id number] 05/19/2020 03:12:00 PM EST [facility] ([facility]) Name Value Range Interpretation Code Description Data Kaye rce(s) Supporting Document(s) bedside glucose 97 mg/dL 70-105 Bedside Glucose ATHE NA ([facility]) ID Date Data Source [id number] 05/19/2020 03:12:00 PM EST [facility] ([facility]) Name Value Range Interpretation Code Description Data Kaye rce(s) Supporting Document(s) istat troponin 0.00 NG/mL 0.00-0.08 Istat Troponin [facility] ([facility]) ID Date Data Source [id number] 05/19/2020 03:12:00 PM EST [facility] ([facility]) Name Value Range Interpretation Code Description Data Kaye rce(s) Supporting Document(s) bedside glucose 97 mg/dL 70-105 Bedside Glucose ATHE NA ([facility]) ID Date Data Source [id number] 05/19/2020 03:12:00 PM EST [facility] ([facility]) Name Value Range Interpretation Code Description Data Kaye rce(s) Supporting Document(s) istat troponin 0.00 NG/mL 0.00-0.08 Istat Troponin [facility] ([facility]) ID Date Data Source [id number] 05/19/2020 03:12:00 PM EST [facility] ([facility]) Name Value Range Interpretation Code Description Data Kaye rce(s) Supporting Document(s) bedside glucose 97 mg/dL 70-105 Bedside Glucose ATHE NA ([facility]) ID Date Data Source [id number] 05/19/2020 03:12:00 PM EST [facility] ([facility]) Name Value Range Interpretation Code Description Data Kaye rce(s) Supporting Document(s) istat troponin 0.00 NG/mL 0.00-0.08 Istat Troponin [facility] ([facility]) ID Date Data Source [id number] 05/19/2020 03:12:00 PM EST [facility] ([facility]) Name Value Range Interpretation Code Description Data Kaye rce(s) Supporting Document(s) bedside glucose 97 mg/dL 70-105 Bedside Glucose ATHE NA ([facility]) ID Date Data Source [id number] 05/19/2020 03:12:00 PM EST [facility] ([facility]) Name Value Range Interpretation Code Description Data Kaye rce(s) Supporting Document(s) istat troponin 0.00 NG/mL 0.00-0.08 Istat Troponin [facility] [facility]) ID Date Data Source [id number] 05/19/2020 03:12:00 PM EST ROMAN ([facility]) Name Value Range Interpretation Code Description Data Kaye rce(s) Supporting Document(s) bedside glucose 97 mg/dL 70-105 Bedside Glucose ATHE NA ([facility]) ID Date Data Source [id number] 05/19/2020 03:12:00 PM EST ROMAN ([facility]) Name Value Range Interpretation Code Description Data Kaye rce(s) Supporting Document(s) istat troponin 0.00 NG/mL 0.00-0.08 Istat Troponin ROMAN ([facility]) ID Date Data Source [id number] 05/19/2020 03:12:00 PM EST ROMAN ([facility]) Name Value Range Interpretation Code Description Data Kaye rce(s) Supporting Document(s) bedside glucose 97 mg/dL 70-105 Bedside Glucose ATHE NA ([facility]) ID Date Data Source [id number] 05/19/2020 01:33:00 PM EST ROMAN ([facility]) Name Value Range Interpretation Code Description Data Kaye rce(s) Supporting Document(s) bedside glucose 169 mg/dL 70-105 Above high normal Bedside Gluco se ROMAN ([facility]) ID Date Data Source [id number] 05/19/2020 01:33:00 PM EST ROMAN ([facility]) Name Value Range Interpretation Code Description Data Kaye rce(s) Supporting Document(s) bedside glucose 169 mg/dL 70-105 Above high normal Bedside Gluco se ROMAN ([facility]) ID Date Data Source [id number] 05/19/2020 01:33:00 PM EST ROMAN ([facility]) Name Value Range Interpretation Code Description Data Kaye rce(s) Supporting Document(s) bedside glucose 169 mg/dL 70-105 Above high normal Bedside Gluco se HEXT ([facility]) ID Date Data Source [id number] 05/19/2020 01:33:00 PM EST ROMAN ([facility]) Name Value Range Interpretation Code Description Data Kaye rce(s) Supporting Document(s) bedside glucose 169 mg/dL 70-105 Above high normal Bedside Gluco se ROMAN ([facility]) ID Date Data Source [id number] 05/19/2020 01:33:00 PM EST ROMAN ([facility]) Name Value Range Interpretation Code Description Data Kaye rce(s) Supporting Document(s) bedside glucose 169 mg/dL 70-105 Above high normal Bedside Gluco se ROMAN ([facility]) ID Date Data Source [id number] 05/19/2020 01:33:00 PM EST ROMAN ([facility]) Name Value Range Interpretation Code Description Data Kaye rce(s) Supporting Document(s) bedside glucose 169 mg/dL 70-105 Above high [facility] Data Source [id number] 05/19/2020 12:48:00 PM EST ROMAN ([facility]) Name Value Range Interpretation Code Description Data Kaye rce(s) Supporting Document(s) amphetamines level urine negative negative Amphetamine s Level Urine ROMAN ([facility]) barbiturates urine negative negative Barbiturates Urin e ROMAN ([facility]) benzodiazepines urine negative negative Benzodiazepine s Urine ROMAN ([facility]) cannabinoids urine positive negative Above high normal Cannabinoi ds Urine ROMAN ([facility]) cocaine metabolite urine negative negative Cocaine Met abolite Urine ROMAN ([facility]) methadone urine negative negative Methadone Urine ATHE NA ([facility]) opiates urine negative negative Opiates Urine ROMAN ( [facility]) phencyclidine urine negative negative Phencyclidine Ur ine ROMAN ([facility]) ID Date Data Source [id number] 05/19/2020 12:48:00 PM EST ROMAN ([facility]) Name Value Range Interpretation Code Description Data Kaye rce(s) Supporting Document(s) appearance, urine rfx clear clear Appearance, Ur ine Rfx HEXT ([facility]) color, urine rfx straw yellow Color, Urine Rfx AT TRAM ([facility]) pH,urine rfx 7.0 units 5.0-9.0 pH,urine Rfx ROMAN ([facility]) specific gravity ur auto rfx 1.002-1.035 Specif ic [place] Ur Auto Rfx ROMAN ([facility]) protein, urine auto rfx negative negative Protein, Uri ne Auto Rfx ROMAN ([facility]) glucose, urine (UA) auto rfx 3+ negative Above high n ormal Glucose, Urine (UA) Auto Rfx ROMAN ([facility]) ketone, urine auto rfx negative negative Ketone, Urine Auto Rfx ROMAN ([facility]) urobilinogen, urine auto rfx 0.2 mg/dL 0.0-2.0 Urobili nogen, Urine Auto Rfx HEXT ([facility]) bilirubin, urine auto rfx negative negative Bilirubin, Urine Auto Rfx ROMAN ([facility]) leukocyte esterase ur auto rfx negative negative Leukocyte Esterase Ur Auto Rfx ROMAN ([facility]) nitrite, urine auto rfx negative negative Nitrite, Uri ne Auto Rfx ROMAN ([facility]) blood, urine blood rfx negative negative Blood, Urine Blood Rfx ROMAN ([facility]) WBC, urine auto rfx 0 /hpf 0-3 WBC, Urine Auto Rfx ROMAN ([facility]) RBC, urine auto rfx 2 /hpf 0-3 RBC, Urine Auto Rfx ROMAN ([facility]) bacteria, urine auto rfx negative negative Bacteria, U rine Auto Rfx ROMAN ([facility]) squam epithelial cell ur aurfx 1 /hpf 0-6 Squam Epithelial Cell Ur Aurfx ROMAN ([facility]) hyaline cast, urine auto rfx 0 /lpf 0-1 Hyaline Cast, Urine Auto Rfx ROMAN ([facility]) ID Date Data Source [id number] 05/19/2020 12:48:00 PM EST ROMAN ([facility]) Name Value Range Interpretation Code Description Data Kaye rce(s) Supporting Document(s) amphetamines level urine negative negative Amphetamine s Level Urine ROMAN ([facility]) barbiturates urine negative negative Barbiturates Urin e ROMAN ([facility]) benzodiazepines urine negative negative Benzodiazepine s Urine ROMAN ([facility]) cannabinoids urine positive negative Above high normal Cannabinoi ds Urine ROMAN ([facility]) cocaine metabolite urine negative negative Cocaine Met abolite Urine ROMAN ([facility]) methadone urine negative negative Methadone Urine ATHE NA ([facility]) opiates urine negative negative Opiates Urine ROMAN ( [facility]) phencyclidine urine negative negative Phencyclidine Ur ine ROMAN ([facility]) ID Date Data Source [id number] 05/19/2020 12:48:00 PM EST ROMAN ([facility]) Name Value Range Interpretation Code Description Data Kaye rce(s) Supporting Document(s) appearance, urine rfx clear clear Appearance, Ur ine Rfx ROMAN ([facility]) color, urine rfx straw yellow Color, Urine Rfx AT TRAM ([facility]) pH,urine rfx 7.0 units 5.0-9.0 pH[facility] ur auto rfx 1.002-1.035 Specif ic [place] Ur Auto Rfx ROMAN ([facility]) protein, urine auto rfx negative negative Protein, Uri ne Auto Rfx HEXT ([facility]) glucose, urine (UA) auto rfx 3+ negative Above high n ormal Glucose, Urine (UA) Auto Rfx HEXT ([facility]) ketone, urine auto rfx negative negative Ketone, Urine Auto Rfx HEXT ([facility]) urobilinogen, urine auto rfx 0.2 mg/dL 0.0-2.0 Urobili nogen, Urine Auto Rfx ROMAN ([facility]) bilirubin, urine auto rfx negative negative Bilirubin, Urine Auto Rfx HEXT ([facility]) nitrite, urine auto rfx negative negative Nitrite, Uri ne Auto Rfx HEXT ([facility]) leukocyte esterase ur auto rfx negative negative Leukocyte Esterase Ur Auto Rfx HEXT ([facility]) blood, urine blood rfx negative negative Blood, Urine Blood Rfx HEXT ([facility]) WBC, urine auto rfx 0 /hpf 0-3 WBC, Urine Auto Rfx ROMAN ([facility]) RBC, urine auto rfx 2 /hpf 0-3 RBC, Urine Auto Rfx ROMAN ([facility]) bacteria, urine auto rfx negative negative Bacteria, U rine Auto Rfx ROMAN ([facility]) squam epithelial cell ur aurfx 1 /hpf 0-6 Squam Epithelial Cell Ur Aurfx ROMAN ([facility]) hyaline cast, urine auto rfx 0 /lpf 0-1 Hyaline Cast, Urine Auto Rfx HEXT ([facility]) ID Date Data Source [id number] 05/19/2020 12:48:00 PM EST ROMAN ([facility]) Name Value Range Interpretation Code Description Data Kaye rce(s) Supporting Document(s) amphetamines level urine negative negative Amphetamine s Level Urine ROMAN ([facility]) barbiturates urine negative negative Barbiturates Urin e ROMAN ([facility]) benzodiazepines urine negative negative Benzodiazepine s Urine ROMAN ([facility]) cannabinoids urine positive negative Above high normal Cannabinoi ds Urine ROMAN ([facility]) cocaine metabolite urine negative negative Cocaine Met abolite Urine ROMAN ([facility]) methadone urine negative negative Methadone Urine ATHE NA ([facility]) opiates urine negative negative Opiates Urine ROMAN ( [facility]) phencyclidine urine negative negative Phencyclidine Ur ine ROMAN ([facility]) ID Date Data Source [id number] 05/19/2020 12:48:00 PM EST ROMAN ([facility]) Name Value Range Interpretation Code Description Data Kaye rce(s) Supporting Document(s) appearance, urine rfx clear clear Appearance, Ur ine Rfx HEXT ([facility]) color, urine rfx straw yellow Color, Urine Rfx AT TRAM ([facility]) pH,urine rfx 7.0 units 5.0-9.0 pH,urine Rfx ROMAN ([facility]) specific gravity ur auto rfx 1.002-1.035 Specif ic [place] Ur Auto Rfx ROMAN ([facility]) protein, urine auto rfx negative negative Protein, Uri ne Auto Rfx HEXT ([facility]) glucose, urine (UA) auto rfx 3+ negative Above high n ormal Glucose, Urine (UA) Auto Rfx HEXT ([facility]) ketone, urine auto rfx negative negative Ketone, Urine Auto Rfx HEXT ([facility]) urobilinogen, urine auto rfx 0.2 mg/dL 0.0-2.0 Urobili nogen, Urine Auto Rfx HEXT ([facility]) bilirubin, urine auto rfx negative negative Bilirubin, Urine Auto Rfx ROMAN ([facility]) nitrite, urine auto rfx negative negative Nitrite, Uri ne Auto Rfx ROMAN ([facility]) leukocyte esterase ur auto rfx negative negative Leukocyte Esterase Ur Auto Rfx ROMAN ([facility]) blood, urine blood rfx negative negative Blood, Urine Blood Rfx ROMAN ([facility]) WBC, urine auto rfx 0 /hpf 0-3 WBC, Urine Auto Rfx ROMAN ([facility]) RBC, urine auto rfx 2 /hpf 0-3 RBC, Urine Auto Rfx ROMAN ([facility]) bacteria, urine auto rfx negative negative Bacteria, U rine Auto Rfx ROMAN ([facility]) squam epithelial cell ur aurfx 1 /hpf 0-6 Squam Epithelial Cell Ur Aurfx ROMAN ([facility]) hyaline cast, urine auto rfx 0 /lpf 0-1 Hyaline Cast, Urine Auto Rfx ROMAN ([facility]) ID Date Data Source [id number] 05/19/2020 12:48:00 PM EST ROMAN ([facility]) Name Value Range Interpretation Code Description Data Kaye rce(s) Supporting Document(s) amphetamines level urine negative negative Amphetamine s Level Urine ROMAN ([facility]) barbiturates urine negative negative Barbiturates Urin e ROMAN ([facility]) benzodiazepines urine negative negative Benzodiazepine s Urine ROMAN ([facility]) cocaine metabolite urine negative negative Cocaine Met abolite Urine ROMAN ([facility]) cannabinoids urine positive negative Above high normal Cannabinoi ds Urine ROMAN ([facility]) methadone urine negative negative Methadone Urine ATHE NA ([facility]) opiates urine negative negative Opiates Urine ROMAN ( [facility]) phencyclidine urine negative negative Phencyclidine Ur ine ROMAN ([facility]) ID Date Data Source [id number] 05/19/2020 12:48:00 PM EST ROMAN ([facility]) Name Value Range Interpretation Code Description Data Kaye rce(s) Supporting Document(s) color, urine rfx straw yellow Color, Urine Rfx AT TRAM ([facility]) appearance, urine rfx clear clear Appearance, Ur ine Rfx ROMAN ([facility]) pH,urine rfx 7.0 units 5.0-9.0 [facility] gravity ur auto rfx 1.002-1.035 Specif ic [place] Ur Auto Rfx ROMAN ([facility]) protein, urine auto rfx negative negative Protein, Uri ne Auto Rfx HEXT ([facility]) glucose, urine (UA) auto rfx 3+ negative Above high n ormal Glucose, Urine (UA) Auto Rfx HEXT ([facility]) ketone, urine auto rfx negative negative Ketone, Urine Auto Rfx HEXT ([facility]) urobilinogen, urine auto rfx 0.2 mg/dL 0.0-2.0 Urobili nogen, Urine Auto Rfx HEXT ([facility]) bilirubin, urine auto rfx negative negative Bilirubin, Urine Auto Rfx ROMAN ([facility]) nitrite, urine auto rfx negative negative Nitrite, Uri ne Auto Rfx ROMAN ([facility]) leukocyte esterase ur auto rfx negative negative Leukocyte Esterase Ur Auto Rfx HEXT ([facility]) blood, urine blood rfx negative negative Blood, Urine Blood Rfx HEXT ([facility]) WBC, urine auto rfx 0 /hpf 0-3 WBC, Urine Auto Rfx ROMAN ([facility]) RBC, urine auto rfx 2 /hpf 0-3 RBC, Urine Auto Rfx ROMAN ([facility]) bacteria, urine auto rfx negative negative Bacteria, U rine Auto Rfx ROMAN ([facility]) squam epithelial cell ur aurfx 1 /hpf 0-6 Squam Epithelial Cell Ur Aurfx ROMAN ([facility]) hyaline cast, urine auto rfx 0 /lpf 0-1 Hyaline Cast, Urine Auto Rfx HEXT ([facility]) ID Date Data Source [id number] 05/19/2020 12:48:00 PM EST ROMAN ([facility]) Name Value Range Interpretation Code Description Data Kaye rce(s) Supporting Document(s) amphetamines level urine negative negative Amphetamine s Level Urine ROMAN ([facility]) barbiturates urine negative negative Barbiturates Urin e ROMAN ([facility]) benzodiazepines urine negative negative Benzodiazepine s Urine ROMAN ([facility]) cannabinoids urine positive negative Above high normal Cannabinoi ds Urine ROMAN ([facility]) cocaine metabolite urine negative negative Cocaine Met abolite Urine ROMAN ([facility]) methadone urine negative negative Methadone Urine ATHE NA ([facility]) opiates urine negative negative Opiates Urine ROMAN ( [facility]) phencyclidine urine negative negative Phencyclidine Ur ine ROMAN ([facility]) ID Date Data Source [id number] 05/19/2020 12:48:00 PM EST ROMAN ([facility]) Name Value Range Interpretation Code Description Data Kaye rce(s) Supporting Document(s) appearance, urine rfx clear clear Appearance, Ur ine Rfx HEXT ([facility]) color, urine rfx straw yellow Color, Urine Rfx AT TRAM ([facility]) pH,urine rfx 7.0 units 5.0-9.0 pH,urine Rfx ROMAN (No [facility]) specific gravity ur auto rfx 1.002-1.035 Specif ic [place] Ur Auto Rfx ROMAN ([facility]) protein, urine auto rfx negative negative Protein, Uri ne Auto Rfx HEXT ([facility]) glucose, urine (UA) auto rfx 3+ negative Above high n ormal Glucose, Urine (UA) Auto Rfx ROMAN ([facility]) ketone, urine auto rfx negative negative Ketone, Urine Auto Rfx HEXT ([facility]) urobilinogen, urine auto rfx 0.2 mg/dL 0.0-2.0 Urobili nogen, Urine Auto Rfx ROMAN ([facility]) bilirubin, urine auto rfx negative negative Bilirubin, Urine Auto Rfx ROMAN ([facility]) nitrite, urine auto rfx negative negative Nitrite, Uri ne Auto Rfx ROMAN ([facility]) leukocyte esterase ur auto rfx negative negative Leukocyte Esterase Ur Auto Rfx ROMAN ([facility]) blood, urine blood rfx negative negative Blood, Urine Blood Rfx ROMAN ([facility]) WBC, urine auto rfx 0 /hpf 0-3 WBC, Urine Auto Rfx ROMAN ([facility]) RBC, urine auto rfx 2 /hpf 0-3 RBC, Urine Auto Rfx ROMAN ([facility]) bacteria, urine auto rfx negative negative Bacteria, U rine Auto Rfx ROMAN ([facility]) squam epithelial cell ur aurfx 1 /hpf 0-6 Squam Epithelial Cell Ur Aurfx ROMAN ([facility]) hyaline cast, urine auto rfx 0 /lpf 0-1 Hyaline Cast, Urine Auto Rfx ROMAN ([facility]) ID Date Data Source [id number] 05/19/2020 12:48:00 PM EST ROMAN ([facility]) Name Value Range Interpretation Code Description Data Kaye rce(s) Supporting Document(s) amphetamines level urine negative negative Amphetamine s Level Urine ROMAN ([facility]) barbiturates urine negative negative Barbiturates Urin e ROMAN ([facility]) benzodiazepines urine negative negative Benzodiazepine s Urine ROMAN ([facility]) cannabinoids urine positive negative Above high normal Cannabinoi ds Urine ROMAN ([facility]) cocaine metabolite urine negative negative Cocaine Met abolite Urine ROMAN ([facility]) methadone urine negative negative Methadone Urine ATHE NA ([facility]) opiates urine negative negative Opiates Urine ROMAN ( [facility]) phencyclidine urine negative negative Phencyclidine Ur ine ROMAN ([facility]) ID Date Data Source [id number] 05/19/2020 12:48:00 PM EST ROMAN ([facility]) Name Value Range Interpretation Code Description Data Kaye rce(s) Supporting Document(s) appearance, urine rfx clear clear Appearance, Ur ine Rfx ROMAN ([facility]) color, urine rfx straw yellow Color, Urine Rfx AT TRAM ([facility]) pH,urine rfx 7.0 units 5.0-9.0 pH,urine Rfx ROMAN (No [facility]) specific gravity ur auto rfx 1.002-1.035 Specif ic [place] Ur Auto Rfx ROMAN ([facility]) protein, urine auto rfx negative negative Protein, Uri ne Auto Rfx HEXT ([facility]) glucose, urine (UA) auto rfx 3+ negative Above high n ormal Glucose, Urine (UA) Auto Rfx HEXT ([facility]) urobilinogen, urine auto rfx 0.2 mg/dL 0.0-2.0 Urobili nogen, Urine Auto Rfx HEXT ([facility]) ketone, urine auto rfx negative negative Ketone, Urine Auto Rfx HEXT ([facility]) bilirubin, urine auto rfx negative negative Bilirubin, Urine Auto Rfx ROMAN ([facility]) nitrite, urine auto rfx negative negative Nitrite, Uri ne Auto Rfx ROMAN ([facility]) leukocyte esterase ur auto rfx negative negative Leukocyte Esterase Ur Auto Rfx HEXT ([facility]) blood, urine blood rfx negative negative Blood, Urine Blood Rfx HEXT ([facility]) WBC, urine auto rfx 0 /hpf 0-3 WBC, Urine Auto Rfx ROMAN ([facility]) RBC, urine auto rfx 2 /hpf 0-3 RBC, Urine Auto Rfx ROMAN ([facility]) bacteria, urine auto rfx negative negative Bacteria, U rine Auto Rfx HEXT ([facility]) squam epithelial cell ur aurfx 1 /hpf 0-6 Squam Epithelial Cell Ur Aurfx ROMAN ([facility]) hyaline cast, urine auto rfx 0 /lpf 0-1 Hyaline Cast, Urine Auto Rfx HEXT ([facility]) ID Date Data Source [id number] 05/19/2020 12:35:00 PM EST ROMAN ([facility]) Name Value Range Interpretation Code Description Data Kaye rce(s) Supporting Document(s) bedside glucose 147 mg/dL 70-105 Above high normal Bedside Gluco se ROMAN ([facility]) ID Date Data Source [id number] 05/19/2020 12:35:00 PM EST ROMAN ([facility]) Name Value Range Interpretation Code Description Data Kaye rce(s) Supporting Document(s) bedside glucose 147 mg/dL 70-105 Above high normal Bedside Gluco se ROMAN ([facility]) ID Date Data Source [id number] 05/19/2020 12:35:00 PM EST ROMAN ([facility]) Name Value Range Interpretation Code Description Data Kaye rce(s) Supporting Document(s) bedside glucose 147 mg/dL 70-105 Above high normal Bedside Gluco se ROMAN ([facility]) ID Date Data Source [id number] 05/19/2020 12:35[facility] Name Value Range Interpretation Code Description Data Kaye rce(s) Supporting Document(s) bedside glucose 147 mg/dL 70-105 Above high normal Bedside Gluco se ROMAN ([facility]) ID Date Data Source [id number] 05/19/2020 12:35:00 PM EST ROMAN ([facility]) Name Value Range Interpretation Code Description Data Kaye rce(s) Supporting Document(s) bedside glucose 147 mg/dL 70-105 Above high normal [facility]side [facility] Date Data Source [id number] 05/19/2020 12:35:00 PM [facility] Name Value Range Interpretation Code Description Data Kaye rce(s) Supporting Document(s) bedside glucose 147 mg/dL 70-105 Above high normal Bedside Gluco se ROMAN ([facility]) ID Date Data Source [id number] 05/19/2020 11:35:00 AM EST ROMAN ([facility]) Name Value Range Interpretation Code Description Data Kaye rce(s) Supporting Document(s) bedside glucose 132 mg/dL 70-105 Above high normal Bedside Gluco se ROMAN ([facility]) ID Date Data Source [id number] 05/19/2020 11:35:00 AM EST ROMAN ([facility]) Name Value Range Interpretation Code Description Data Kaey rce(s) Supporting Document(s) bedside glucose 132 mg/dL 70-105 Above high normal Bedside Gluco se ROMAN ([facility]) ID Date Data Source [id number] 05/19/2020 11:35:00 AM EST ROMAN ([facility]) Name Value Range Interpretation Code Description Data Kaye rce(s) Supporting Document(s) bedside glucose 132 mg/dL 70-105 Above high normal Bedside Gluco se ROMAN ([facility]) ID Date Data Source [id number] 05/19/2020 11:35:00 AM EST ROMAN ([facility]) Name Value Range Interpretation Code Description Data Kaye rce(s) Supporting Document(s) bedside glucose 132 mg/dL 70-105 Above high normal Bedside Gluco se ROMAN ([facility]) ID Date Data Source [id number] 05/19/2020 11:35:00 AM EST ROMAN ([facility]) Name Value Range Interpretation Code Description Data Kaye rce(s) Supporting Document(s) bedside glucose 132 mg/dL 70-105 Above high normal Bedside Gluco se ROMAN ([facility]) ID Date Data Source [id number] 05/19/2020 11:35:00 AM EST ROMAN ([facility]) Name Value Range Interpretation Code Description Data Kaye rce(s) Supporting Document(s) bedside glucose 132 mg/dL 70-105 Above high normal Bedside Gluco se RMOAN ([facility]) ID Date Data Source [id number] 05/19/2020 11:28:00 AM EST ROMAN [facility]) Name Value Range Interpretation Code Description Data Kyae rce(s) Supporting Document(s) ID Date Data Source [id number] 05/19/2020 11:28:00 AM EST ROMAN [facility]) Name Value Range Interpretation Code Description Data Kaye rce(s) Supporting Document(s) ID Date Data Source [id number] 05/19/2020 11:28:00 AM EST ROMAN [facility]) Name Value Range Interpretation Code Description Data Kaye rce(s) Supporting Document(s) ID Date Data Source [id number] 05/19/2020 11:28:00 AM EST ROMAN [facility]) Name Value Range Interpretation Code Description Data Kaye rce(s) Supporting Document(s) ID Date Data Source [id number] 05/19/2020 11:28:00 AM EST ROMAN [facility]) Name Value Range Interpretation Code Description Data Kaye rce(s) Supporting Document(s) ID Date Data Source [id number] 05/19/2020 11:28:00 AM EST ROMAN [facility]) Name Value Range Interpretation Code Description Data Kaye rce(s) Supporting Document(s) ID Date Data Source [id number] 05/19/2020 11:28:00 AM EST [facility] Name Value Range Interpretation Code Description Data Kaye rce(s) Supporting Document(s) SARS-CoV-2 (COVID 19) NEGATIVE - SARS-CoV-2 (COVID19) [facility] This lab was ordered by [facility] a nd reported by [facility]. ID Date Data Source [id number] 05/19/2020 11:17:00 AM EST [facility] ([facility]) Name Value Range Interpretation Code Description Data Kaye rce(s) Supporting Document(s) istat pH 7.310 units 7.350-7.450 Below low normal Istat pH ROMAN ([facility]) istat pCO2 50.2 mmHg 35.0-45.0 Above high normal Istat pCO2 ROMAN ([facility]) istat pO2 107.0 mmHg 80-105 Above high normal Istat pO2 [facility] ([facility]) istat TCO2 27.0 mmol/L 23.0-27.0 Istat TCO2 ROMAN ([facility]) istat HCO3 25.3 mmol/L 22.0-26.0 Istat HCO3 [facility] ([facility]) istat base excess -1.0 mmol/L -2.0-3.0 Istat Base Excess ROMAN ([facility]) istat so2 98 % 95-98 Istat So2 [facility] ([facility]) ID Date Data Source [id number] 05/19/2020 11:17:00 AM EST ROMAN ([facility]) Name Value Range Interpretation Code Description Data Kaye rce(s) Supporting Document(s) istat pH 7.310 units 7.350-7.450 Below low normal Istat pH ROMAN ([facility]) istat pCO2 50.2 mmHg 35.0-45.0 Above high normal Istat pCO2 ROMAN ([facility]) istat pO2 107.0 mmHg 80-105 Above high normal Istat pO2 ROM[facility] ([facility]) istat TCO2 27.0 mmol/L 23.0-27.0 Istat TCO2 [facility] ([facility]) istat HCO3 25.3 mmol/L 22.0-26.0 Istat HCO3 ROMAN ([facility]) istat base excess -1.0 mmol/L -2.0-3.0 Istat Base Excess ROMAN ([facility]) istat so2 98 % 95-98 Istat So2 ROMAN ([facility]) ID Date Data Source [id number] 05/19/2020 11:17:00 AM EST ROMAN ([facility]) Name Value Range Interpretation Code Description Data Kaye rce(s) Supporting Document(s) istat pH 7.310 units 7.350-7.450 Below low normal Istat pH ROMAN ([facility]) istat pCO2 50.2 mmHg 35.0-45.0 Above high normal Istat pCO2 ROMAN ([facility]) istat pO2 107.0 mmHg 80-105 Above high normal Istat pO2 ROM[facility] ([facility]) istat TCO2 27.0 mmol/L 23.0-27.0 Istat TCO2 ROMAN ([facility]) istat HCO3 25.3 mmol/L 22.0-26.0 Istat HCO3 ROMAN ([facility]) istat base excess -1.0 mmol/L -2.0-3.0 Istat Base Excess ROMAN ([facility]) istat so2 98 % 95-98 Istat So2 ROMAN ([facility]) ID Date Data Source [id number] 05/19/2020 11:17:00 AM EST ROMAN ([facility]) Name Value Range Interpretation Code Description Data Kaye rce(s) Supporting Document(s) istat pH 7.310 units 7.350-7.450 Below low normal Istat pH ROMAN ([facility]) istat pCO2 50.2 mmHg 35.0-45.0 Above high normal Istat pCO2 ROM[facility] ([facility]) istat pO2 107.0 mmHg 80-105 Above high normal Istat pO2 [facility] ([facility]) istat TCO2 27.0 mmol/L 23.0-27.0 Istat TCO2 ROM[facility] ([facility]) istat HCO3 25.3 mmol/L 22.0-26.0 Istat HCO3 ROMAN ([facility]) istat base excess -1.0 mmol/L -2.0-3.0 Istat Base Excess ROMAN ([facility]) istat so2 98 % 95-98 Istat So2 ROM[facility] ([facility]) ID Date Data Source [id number] 05/19/2020 11:17:00 AM EST ROMAN ([facility]) Name Value Range Interpretation Code Description Data Kaye rce(s) Supporting Document(s) istat pH 7.310 units 7.350-7.450 Below low normal Istat pH ROMAN ([facility]) istat pCO2 50.2 mmHg 35.0-45.0 Above high normal Istat pCO2 ROM[facility] ([facility]) istat pO2 107.0 mmHg 80-105 Above high normal Istat pO2 ROM[facility] ([facility]) istat TCO2 27.0 mmol/L 23.0-27.0 Istat TCO2 ROM[facility] ([facility]) istat HCO3 25.3 mmol/L 22.0-26.0 Istat HCO3 ROM[facility] ([facility]) istat base excess -1.0 mmol/L -2.0-3.0 Istat Base Excess ROMAN ([facility]) istat so2 98 % 95-98 Istat So2 [facility] ([facility]) ID Date Data Source [id number] 05/19/2020 11:17:00 AM EST ROMAN ([facility]) Name Value Range Interpretation Code Description Data Kaye rce(s) Supporting Document(s) istat pH 7.310 units 7.350-7.450 Below low normal Istat pH ROMAN ([facility]) istat pCO2 50.2 mmHg 35.0-45.0 Above high normal Istat pCO2 ROM[facility] ([facility]) istat pO2 107.0 mmHg 80-105 Above high normal Istat pO2 ROM[facility] ([facility]) istat TCO2 27.0 mmol/L 23.0-27.0 Istat TCO2 ROM[facility] ([facility]) istat HCO3 25.3 mmol/L 22.0-26.0 Istat HCO3 ROM[facility] ([facility]) istat base excess -1.0 mmol/L -2.0-3.0 Istat Base Excess ROMAN ([facility]) istat so2 98 % 95-98 Istat So2 [facility] ([facility]) ID Date Data Source [id number] 05/19/2020 11:06:00 AM EST [facility] ([facility]) Name Value Range Interpretation Code Description Data Kaye rce(s) Supporting Document(s) ross covid antigen negative negative Ross Covid Anti gen [facility] ([facility]) ID Date Data Source [id number] 05/19/2020 11:06:00 AM EST [facility]) Name Value Range Interpretation Code Description Data Kaye rce(s) Supporting Document(s) ross covid antigen negative negative Ross Covid Anti gen ROMAN ([facility]) ID Date Data Source [id number] 05/19/2020 11:06:00 AM EST [facility] ([facility]) Name Value Range Interpretation Code Description Data Kaye rce(s) Supporting Document(s) ross covid antigen negative negative Ross Covid Anti gen [facility] ([facility]) ID Date Data Source [id number] 05/19/2020 11:06:00 AM EST [facility]) Name Value Range Interpretation Code Description Data Kaye rce(s) Supporting Document(s) ross covid antigen negative negative Ross Covid Anti gen ROMAN ([facility]) ID Date Data Source [id number] 05/19/2020 11:06:00 AM EST ROMAN ([facility]) Name Value Range Interpretation Code Description Data Kaye rce(s) Supporting Document(s) ross covid antigen negative negative Ross Covid Anti gen ROMAN ([facility]) ID Date Data Source [id number] 05/19/2020 11:06:00 AM EST ROMAN ([facility]) Name Value Range Interpretation Code Description Data Kaye rce(s) Supporting Document(s) ross covid antigen negative negative Ross Covid Anti gen ROMAN ([facility]) ID Date Data Source [id number] 05/19/2020 11:06:00 AM EST [facility] Name Value Range Interpretation Code Description Data Kaye rce(s) Supporting Document(s) SARS COVID ANTIGEN NEGATIVE [facility] This lab was ordered by SERGIO merritt nd reported by [facility]. ID Date Data Source [id number] 05/19/2020 10:56:00 AM EST ROMAN ([facility]) Name Value Range Interpretation Code Description Data Kaye rce(s) Supporting Document(s) istat lactate 0.4-2.0 Above high normal Istat Lactate A [facility] ([facility]) ID Date Data Source [id number] 05/19/2020 10:56:00 AM EST ROMAN ([facility]) Name Value Range Interpretation Code Description Data Kaye rce(s) Supporting Document(s) istat lactate 0.4-2.0 Above high normal Istat Lactate A [facility] ([facility]) ID Date Data Source [id number] 05/19/2020 10:56:00 AM EST [facility]AN ([facility]) Name Value Range Interpretation Code Description Data Kaye rce(s) Supporting Document(s) istat lactate 0.4-2.0 Above high normal Istat Lactate A [facility] ([facility]) ID Date Data Source [id number] 05/19/2020 10:56:00 AM EST ROMAN ([facility]) Name Value Range Interpretation Code Description Data Kaye rce(s) Supporting Document(s) istat lactate 0.4-2.0 Above high normal [facility] ID Date Data Source [id number] 05/19/2020 10:56:00 AM EST ROMAN ([facility]) Name Value Range Interpretation Code Description Data Kaye rce(s) Supporting Document(s) istat lactate 0.4-2.0 Above high normal Istat Lactate A [facility] ([facility]) ID Date Data Source [id number] 05/19/2020 10:56:00 AM EST [facility]AN ([facility]) Name Value Range Interpretation Code Description Data Kaye rce(s) Supporting Document(s) istat lactate 0.4-2.0 Above high normal [facility] ID Date Data Source [id number] 05/19/2020 10:52:00 AM EST ROMAN ([facility]) Name Value Range Interpretation Code Description Data Kaye rce(s) Supporting Document(s) istat HCT 30.0 % 38.0-51.0 Below low normal Istat HCT ROMAN ( [facility]) istat glucose 252 mg/dL 70-105 Above high normal Istat Glucose A [facility] ([facility]) istat sodium 141 mEq/L 136-145 Istat Sodium [facility] ([facility]) istat potassium 3.8 mEq/L 3.5-5.1 Istat Potassium ATHE NA ([facility]) istat Ca++ 5.3 mg/dL 4.5-5.3 Istat Ca++ ROMAN ([facility]) istat chloride 104 mEq/L 98-109 Istat Chloride ROMAN ([facility]) istat CO2 26.0 mm/L 23.0-27.0 Istat CO2 ROMAN ([facility]) istat BUN 18 mg/dL 8-26 Istat BUN [facility] ([facility]) istat creatinine 1.1 mg/dL 0.6-1.3 Istat Creatinine AT [facility]) ID Date Data Source [id number] 05/19/2020 10:52:00 AM EST [facility] ([facility]) Name Value Range Interpretation Code Description Data Kaye rce(s) Supporting Document(s) istat HCT 30.0 % 38.0-51.0 Below low normal Istat HCT ROMAN ( [facility]) istat glucose 252 mg/dL 70-105 Above high normal Istat Glucose A [facility] ([facility]) istat sodium 141 mEq/L 136-145 Istat Sodium ROMAN ([facility]) istat potassium 3.8 mEq/L 3.5-5.1 Istat Potassium ATHE NA ([facility]) istat Ca++ 5.3 mg/dL 4.5-5.3 Istat Ca++ ROMAN ([facility]) istat chloride 104 mEq/L 98-109 Istat Chloride ROMAN ([facility]) istat CO2 26.0 mm/L 23.0-27.0 Istat CO2 ROMAN ([facility]) istat BUN 18 mg/dL 8-26 Istat BUN [facility] ([facility]) istat creatinine 1.1 mg/dL 0.6-1.3 Istat Creatinine AT [facility]) ID Date Data Source [id number] 05/19/2020 10:52:00 AM EST ROMAN ([facility]) Name Value Range Interpretation Code Description Data Kaye rce(s) Supporting Document(s) istat HCT 30.0 % 38.0-51.0 Below low normal Istat HCT ROMAN ( [facility]) istat glucose 252 mg/dL 70-105 Above high normal Istat Glucose A [facility] ([facility]) istat sodium 141 mEq/L 136-145 Istat Sodium ROMAN ([facility]) istat potassium 3.8 mEq/L 3.5-5.1 Istat Potassium ATHE NA ([facility]) istat Ca++ 5.3 mg/dL 4.5-5.3 Istat Ca++ ROMAN ([facility]) istat chloride 104 mEq/L 98-109 Istat Chloride [facility] ([facility]) istat CO2 26.0 mm/L 23.0-27.0 Istat CO2 ROM[facility] ([facility]) istat BUN 18 mg/dL 8-26 Istat BUN [facility] ([facility]) istat creatinine 1.1 mg/dL 0.6-1.3 Istat Creatinine AT [facility]AM ([facility]) ID Date Data Source [id number] 05/19/2020 10:52:00 AM EST ROMAN ([facility]) Name Value Range Interpretation Code Description Data Kaye rce(s) Supporting Document(s) istat HCT 30.0 % 38.0-51.0 Below low normal Istat HCT ROMAN ( [facility]) istat glucose 252 mg/dL 70-105 Above high normal Istat Glucose A [facility] ([facility]) istat sodium 141 mEq/L 136-145 Istat Sodium ROMAN ([facility]) istat potassium 3.8 mEq/L 3.5-5.1 Istat Potassium ATHE NA ([facility]) istat Ca++ 5.3 mg/dL 4.5-5.3 Istat Ca++ ROMAN ([facility]) istat chloride 104 mEq/L 98-109 Istat Chloride ROMAN ([facility]) istat CO2 26.0 mm/L 23.0-27.0 Istat CO2 [facility]AN ([facility]) istat BUN 18 mg/dL 8-26 Istat BUN [facility] ([facility]) istat creatinine 1.1 mg/dL 0.6-1.3 Istat Creatinine AT [facility]) ID Date Data Source [id number] 05/19/2020 10:52:00 AM EST [facility] ([facility]) Name Value Range Interpretation Code Description Data Kaye rce(s) Supporting Document(s) istat HCT 30.0 % 38.0-51.0 Below low normal Istat HCT ROMAN ( [facility]) istat glucose 252 mg/dL 70-105 Above high normal Istat Glucose A [facility] ([facility]) istat sodium 141 mEq/L 136-145 Istat Sodium ROMAN ([facility]) istat potassium 3.8 mEq/L 3.5-5.1 Istat Potassium ATHE NA ([facility]) istat Ca++ 5.3 mg/dL 4.5-5.3 Istat Ca++ [facility]AN ([facility]) istat chloride 104 mEq/L 98-109 Istat Chloride ROMAN ([facility]) istat CO2 26.0 mm/L 23.0-27.0 Istat CO2 [facility] ([facility]) istat BUN 18 mg/dL 8-26 Istat BUN [facility] ([facility]) istat creatinine 1.1 mg/dL 0.6-1.3 Istat Creatinine AT [facility]) ID Date Data Source [id number] 05/19/2020 10:52:00 AM EST [facility]AN ([facility]) Name Value Range Interpretation Code Description Data Kaye rce(s) Supporting Document(s) istat HCT 30.0 % 38.0-51.0 Below low normal Istat HCT ROMAN ( [facility]) istat glucose 252 mg/dL 70-105 Above high normal Istat Glucose A [facility] ([facility]) istat sodium 141 mEq/L 136-145 Istat Sodium ROMAN (No [facility]) istat potassium 3.8 mEq/L 3.5-5.1 Istat Potassium ATHE NA ([facility]) istat Ca++ 5.3 mg/dL 4.5-5.3 Istat Ca++ [facility] ([facility]) istat chloride 104 mEq/L 98-109 Istat Chloride ROMAN ([facility]) istat CO2 26.0 mm/L 23.0-27.0 Istat CO2 ROM[facility] ([facility]) istat BUN 18 mg/dL 8-26 Istat BUN [facility] ([facility]) istat creatinine 1.1 mg/dL 0.6-1.3 Istat Creatinine AT [facility] ([facility]) ID Date Data Source [id number] 05/19/2020 10:51:00 AM EST [facility]AN ([facility]) Name Value Range Interpretation Code Description Data Kaye rce(s) Supporting Document(s) lipase 97 U/L 73-393 Lipase ROM[facility] ([facility]) ID Date Data Source [id number] 05/19/2020 10:51:00 AM EST [facility] ([facility]) Name Value Range Interpretation Code Description Data Kaye rce(s) Supporting Document(s) acetone/ketone 0.70 mg/dL <2.81 Acetone/ketone [facility] ([facility]) ID Date Data Source [id number] 05/19/2020 10:51:00 AM EST [facility]AN ([facility]) Name Value Range Interpretation Code Description Data Kaye rce(s) Supporting Document(s) glucose, fasting 258 mg/dL 70-100 Above high normal Glucose, Fas ting ROMAN ([facility]) blood urea nitrogen 18 mg/dL 7-18 Blood Urea Nitro gen ROMAN ([facility]) creatinine for GFR 1.29 mg/dL 0.55-1.30 Creatinine for GF R ROMAN ([facility]) glomerular filtration rate >58 Below low normal Beata merular Filtration Rate ROMAN ([facility]) sodium level 142 mEq/L 136-145 Sodium Level ROMAN (No [facility]) potassium serum 4.0 mEq/L 3.5-5.1 Potassium Serum ATHE NA ([facility]) chloride level 106 mEq/L 98-107 Chloride Level [facility] ([facility]) carbon dioxide level 27 mEq/L 21-32 Carbon Dioxide Level ROMAN ([facility]) anion gap 9 mEq/L 8-16 Anion Gap ROM[facility] ([facility]) calcium level 9.3 mg/dL 8.5-10.1 Calcium Level [facility] ( [facility]) ID Date Data Source [id number] 05/19/2020 10:51:00 AM EST [facility] ([facility]) Name Value Range Interpretation Code Description Data Kaye rce(s) Supporting Document(s) AST/SGOT 12 U/L 7-37 AST/SGOT [facility] ([facility]) ALT/SGPT 13 U/L 12-78 ALT/SGPT [facility] ([facility]) alkaline phosphatase 66 U/L 45-117 Alkaline Phosph atase ROM[facility] ([facility]) bilirubin,total 0.3 mg/dL 0.2-1.0 Bilirubin,total ATHE ([facility]) bilirubin,direct 0.1 mg/dL 0.0-0.2 Bilirubin,direct AT TRAM [facility]) total protein 6.8 gm/dL 6.4-8.2 Total Protein ROMAN ( [facility]) albumin 3.7 gm/dL 3.2-5.2 Albumin ROMAN ([facility]) albumin/globulin ratio 1.2-2.2 Albumin/globu gerard Ratio ROMAN ([facility]) ID Date Data Source [id number] 05/19/2020 10:51:00 AM EST [facility] ([facility]) Name Value Range Interpretation Code Description Data Kaye rce(s) Supporting Document(s) Hemoglobin A1c/Hemoglobin.total in Blood 8.7 % Hemoglobin a1C [facility] ([facility]) estimated average glucose 203 mg/dL 60-110 Above high norm al Estimated Average Glucose [facility] ([facility]) ID Date Data Source [id number] 05/19/2020 10:51:00 AM EST [facility] ([facility]) Name Value Range Interpretation Code Description Data Kaye rce(s) Supporting Document(s) white blood count 6.8 10 4.0-10.0 White Blood Count [facility] ([facility]) red blood count 3.21 10 4.00-5.40 Below low normal Red Blood Coun t [facility] ([facility]) hemoglobin 8.9 g/dL 12.0-15.5 Below low normal Hemoglobin [facility] ( [facility]) hematocrit 28.2 % 36.0-47.0 Below low normal Hematocrit [facility] ( [facility]) mean corpuscular volume 87.9 fL 80.0-96.0 Mean Corpusc ular Volume [facility] ([facility]) mean corpuscular hemoglobin 27.7 pg 27.0-33.0 Mean Cor puscular Hemoglobin [facility] ([facility]) mean corpuscular HGB conc 31.6 g/dL 32.0-36.5 Below low oz l Mean Corpuscular HGB Conc [facility] ([facility]) red cell distribution width 16.9 % 11.5-14.5 Above high no rmal Red Cell Distribution Width [facility] ([facility]) platelet count, automated 261 10 150-450 Platelet C ount, Automated [facility] ([facility]) neutrophils % 55.1 % 36.0-66.0 Neutrophils % ROMAN ( [facility]) lymph % 34.4 % 24.0-44.0 Lymph % [facility] ([facility]) mono % 6.7 % 2.0-8.0 Above high normal [place] % [facility] ([facility]) eos % 2.8 % 0.0-3.0 Eos % ROM[facility] ([facility]) baso % 0.7 % 0.0-1.0 Baso % [facility] ([facility]) immature granulocyte % 0.3 % 0-3.0 Immature Gran ulocyte % ROM[facility] ([facility]) nucleated red blood cell % 0.0 % 0-0 Nucleated Red Blood Cell % [facility] ([facility]) neutrophils # 3.8 10 1.5-8.5 Neutrophils # ROMAN ( [facility]) lymph # 2.4 10 1.5-5.0 Lymph # ROMAN ([facility]) mono # 0.5 10 0.0-0.8 [place] # ROMAN ([facility]) eos # 0.2 10 0.0-0.5 Eos # [facility] ([facility]) baso # 0.1 10 0.0-0.2 Baso # [facility] ([facility]) ID Date Data Source [id number] 05/19/2020 10:51:00 AM EST [facility] ([facility]) Name Value Range Interpretation Code Description Data Kaye rce(s) Supporting Document(s) lipase 97 U/L 73-393 Lipase [facility] ([facility]) ID Date Data Source [id number] 05/19/2020 10:51:00 AM EST [facility] ([facility]) Name Value Range Interpretation Code Description Data Kaye rce(s) Supporting Document(s) acetone/ketone 0.70 mg/dL <2.81 Acetone/ketone [facility] ([facility]) ID Date Data Source [id number] 05/19/2020 10:51:00 AM EST [facility] ([facility]) Name Value Range Interpretation Code Description Data Kaye rce(s) Supporting Document(s) glucose, fasting 258 mg/dL 70-100 Above high normal Glucose, Fas ting ROMAN ([facility]) blood urea nitrogen 18 mg/dL 7-18 Blood Urea Nitro gen ROM[facility] ([facility]) creatinine for GFR 1.29 mg/dL 0.55-1.30 Creatinine for GF R ROMAN ([facility]) glomerular filtration rate >58 Below low normal Beata merular Filtration Rate ROMAN ([facility]) sodium level 142 mEq/L 136-145 Sodium Level [facility] ([facility]) potassium serum 4.0 mEq/L 3.5-5.1 Potassium Serum ATHE NA ([facility]) chloride level 106 mEq/L 98-107 Chloride Level [facility] ([facility]) carbon dioxide level 27 mEq/L 21-32 Carbon Dioxide Level [facility] ([facility]) anion gap 9 mEq/L 8-16 Anion Gap [facility] ([facility]) calcium level 9.3 mg/dL 8.5-10.1 Calcium Level [facility] ( [facility]) ID Date Data Source [id number] 05/19/2020 10:51:00 AM EST [facility] ([facility]) Name Value Range Interpretation Code Description Data Kaye rce(s) Supporting Document(s) AST/SGOT 12 U/L 7-37 AST/SGOT [facility] ([facility]) ALT/SGPT 13 U/L 12-78 ALT/SGPT [facility] ([facility]) alkaline phosphatase 66 U/L 45-117 Alkaline Phosph atase [facility] ([facility]) bilirubin,total 0.3 mg/dL 0.2-1.0 Bilirubin,total [facility] ([facility]) bilirubin,direct 0.1 mg/dL 0.0-0.2 Bilirubin,direct AT TRAM [facility]) total protein 6.8 gm/dL 6.4-8.2 Total Protein ROM[facility] ( [facility]) albumin 3.7 gm/dL 3.2-5.2 Albumin ROM[facility] ([facility]) albumin/globulin ratio 1.2-2.2 Albumin/globu gerard Ratio ROMAN ([facility]) ID Date Data Source [id number] 05/19/2020 10:51:00 AM EST [facility] ([facility]) Name Value Range Interpretation Code Description Data Kaye rce(s) Supporting Document(s) Hemoglobin A1c/Hemoglobin.total in Blood 8.7 % Hemoglobin a1C [facility] ([facility]) estimated average glucose 203 mg/dL 60-110 Above high norm al Estimated Average Glucose [facility]) ID Date Data Source [id number] 05/19/2020 10:51:00 AM EST [facility] ([facility]) Name Value Range Interpretation Code Description Data Kaye rce(s) Supporting Document(s) white blood count 6.8 10 4.0-10.0 White Blood Count [facility] ([facility]) red blood count 3.21 10 4.00-5.40 Below low normal Red Blood Coun t ROMAN ([facility]) hemoglobin 8.9 g/dL 12.0-15.5 Below low normal Hemoglobin ROM[facility] ( [facility]) hematocrit 28.2 % 36.0-47.0 Below low normal Hematocrit ROM[facility] ( [facility]) mean corpuscular volume 87.9 fL 80.0-96.0 Mean Corpusc ular Volume [facility] ([facility]) mean corpuscular hemoglobin 27.7 pg 27.0-33.0 Mean Cor puscular Hemoglobin [facility] ([facility]) mean corpuscular HGB conc 31.6 g/dL 32.0-36.5 Below low oz l Mean Corpuscular HGB Conc [facility] ([facility]) red cell distribution width 16.9 % 11.5-14.5 Above high no rmal Red Cell Distribution Width [facility] ([facility]) platelet count, automated 261 10 150-450 Platelet C ount, Automated [facility] ([facility]) neutrophils % 55.1 % 36.0-66.0 Neutrophils % ROM[facility] ( [facility]) lymph % 34.4 % 24.0-44.0 Lymph % RMOAN ([facility]) mono % 6.7 % 2.0-8.0 Above high normal [place] % ROMAN ([facility]) eos % 2.8 % 0.0-3.0 Eos % ROMAN ([facility]) baso % 0.7 % 0.0-1.0 Baso % HEXT ([facility]) immature granulocyte % 0.3 % 0-3.0 Immature Gran ulocyte % ROMAN ([facility]) nucleated red blood cell % 0.0 % 0-0 Nucleated Red Blood Cell % HEXT ([facility]) neutrophils # 3.8 10 1.5-8.5 Neutrophils # HEXT ( [facility]) lymph # 2.4 10 1.5-5.0 Lymph # ROMAN ([facility]) mono # 0.5 10 0.0-0.8 [place] # ROMAN ([facility]) eos # 0.2 10 0.0-0.5 Eos # ROMAN ([facility]) baso # 0.1 10 0.0-0.2 Baso # ROMAN ([facility]) ID Date Data Source [id number] 05/19/2020 10:51:00 AM EST HEXT ([facility]) Name Value Range Interpretation Code Description Data Kaye rce(s) Supporting Document(s) lipase 97 U/L 73-393 Lipase HEXT ([facility]) ID Date Data Source [id number] 05/19/2020 10:51:00 AM EST HEXT ([facility]) Name Value Range Interpretation Code Description Data Kaye rce(s) Supporting Document(s) acetone/ketone 0.70 mg/dL <2.81 Acetone/ketone ROMAN ([facility]) ID Date Data Source [id number] 05/19/2020 10:51:00 AM EST ROMAN ([facility]) Name Value Range Interpretation Code Description Data Kaye rce(s) Supporting Document(s) glucose, fasting 258 mg/dL 70-100 Above high normal Glucose, Fas ting ROMAN ([facility]) blood urea nitrogen 18 mg/dL 7-18 Blood Urea Nitro gen ROMAN ([facility]) creatinine for GFR 1.29 mg/dL 0.55-1.30 Creatinine for GF R ROMAN ([facility]) glomerular filtration rate >58 Below low normal Beata merular Filtration Rate ROMAN ([facility]) sodium level 142 mEq/L 136-145 Sodium Level ROMAN ([facility]) potassium serum 4.0 mEq/L 3.5-5.1 Potassium Serum ATHE NA ([facility]) chloride level 106 mEq/L 98-107 Chloride Level HEXT ([facility]) carbon dioxide level 27 mEq/L 21-32 Carbon Dioxide Level ROMAN ([facility]) anion gap 9 mEq/L 8-16 Anion Gap ROMAN ([facility]) calcium level 9.3 mg/dL 8.5-10.1 Calcium Level HEXT ( [facility]) ID Date Data Source [id number] 05/19/2020 10:51:00 AM EST ROMAN ([facility]) Name Value Range Interpretation Code Description Data Kaye rce(s) Supporting Document(s) AST/SGOT 12 U/L 7-37 AST/SGOT ROMAN ([facility]) ALT/SGPT 13 U/L 12-78 ALT/SGPT ROMAN ([facility]) alkaline phosphatase 66 U/L 45-117 Alkaline Phosph atase HEXT ([facility]) bilirubin,total 0.3 mg/dL 0.2-1.0 Bilirubin,total ATHE [facility]) bilirubin,direct 0.1 mg/dL 0.0-0.2 Bilirubin,direct AT TRAM [facility]) total protein 6.8 gm/dL 6.4-8.2 Total Protein ROMAN ( [facility]) albumin 3.7 gm/dL 3.2-5.2 Albumin ROMAN ([facility]) albumin/globulin ratio 1.2-2.2 Albumin/globu gearrd Ratio ROMAN ([facility]) ID Date Data Source [id number] 05/19/2020 10:51:00 AM EST HEXT ([facility]) Name Value Range Interpretation Code Description Data Kaye rce(s) Supporting Document(s) Hemoglobin A1c/Hemoglobin.total in Blood 8.7 % Hemoglobin a1C HEXT ([facility]) estimated average glucose 203 mg/dL 60-110 Above high norm al Estimated Average Glucose HEXT ([facility]) ID Date Data Source [id number] 05/19/2020 10:51:00 AM EST HEXT ([facility]) Name Value Range Interpretation Code Description Data Kaye rce(s) Supporting Document(s) white blood count 6.8 10 4.0-10.0 White Blood Count HEXT ([facility]) red blood count 3.21 10 4.00-5.40 Below low normal Red Blood Coun t ROMAN ([facility]) hemoglobin 8.9 g/dL 12.0-15.5 Below low normal Hemoglobin ROMAN ( [facility]) hematocrit 28.2 % 36.0-47.0 Below low normal Hematocrit ROMAN ( [facility]) mean corpuscular volume 87.9 fL 80.0-96.0 Mean Corpusc ular Volume ROMAN ([facility]) mean corpuscular hemoglobin 27.7 pg 27.0-33.0 Mean Cor puscular Hemoglobin ROMAN ([facility]) mean corpuscular HGB conc 31.6 g/dL 32.0-36.5 Below low oz l Mean Corpuscular HGB Conc ROMAN ([facility]) red cell distribution width 16.9 % 11.5-14.5 Above high no rmal Red Cell Distribution Width ROMNA ([facility]) platelet count, automated 261 10 150-450 Platelet C ount, Automated ROMAN ([facility]) neutrophils % 55.1 % 36.0-66.0 Neutrophils % ROMAN ( [facility]) lymph % 34.4 % 24.0-44.0 Lymph % ROMAN ([facility]) mono % 6.7 % 2.0-8.0 Above high normal [place] % ROMAN ([facility]) eos % 2.8 % 0.0-3.0 Eos % ROMAN ([facility]) baso % 0.7 % 0.0-1.0 Baso % HEXT ([facility]) immature granulocyte % 0.3 % 0-3.0 Immature Gran ulocyte % HEXT ([facility]) nucleated red blood cell % 0.0 % 0-0 Nucleated Red Blood Cell % HEXT ([facility]) neutrophils # 3.8 10 1.5-8.5 Neutrophils # ROMAN ( [facility]) lymph # 2.4 10 1.5-5.0 Lymph # ROMAN ([facility]) mono # 0.5 10 0.0-0.8 [place] # ROMAN ([facility]) eos # 0.2 10 0.0-0.5 Eos # ROMAN ([facility]) baso # 0.1 10 0.0-0.2 Baso # ROMAN ([facility]) ID Date Data Source [id number] 05/19/2020 10:51:00 AM EST HEXT ([facility]) Name Value Range Interpretation Code Description Data Kaye rce(s) Supporting Document(s) lipase 97 U/L 73-393 Lipase HEXT ([facility]) ID Date Data Source [id number] 05/19/2020 10:51:00 AM EST ROMAN ([facility]) Name Value Range Interpretation Code Description Data Kaye rce(s) Supporting Document(s) acetone/ketone 0.70 mg/dL <2.81 Acetone/ketone ROMAN ([facility]) ID Date Data Source [id number] 05/19/2020 10:51:00 AM EST ROMAN ([facility]) Name Value Range Interpretation Code Description Data Kaye rce(s) Supporting Document(s) glucose, fasting 258 mg/dL 70-100 Above high normal Glucose, Fas ting ROMAN ([facility]) blood urea nitrogen 18 mg/dL 7-18 Blood Urea Nitro gen ROMAN ([facility]) creatinine for GFR 1.29 mg/dL 0.55-1.30 Creatinine for GF R ROMAN ([facility]) glomerular filtration rate >58 Below low normal Beata merular Filtration Rate ROMAN ([facility]) sodium level 142 mEq/L 136-145 Sodium Level ROMAN ([facility]) potassium serum 4.0 mEq/L 3.5-5.1 Potassium Serum ATHE NA ([facility]) chloride level 106 mEq/L 98-107 Chloride Level ROMAN ([facility]) carbon dioxide level 27 mEq/L 21-32 Carbon Dioxide Level ROMAN ([facility]) anion gap 9 mEq/L 8-16 Anion Gap ROMAN ([facility]) calcium level 9.3 mg/dL 8.5-10.1 Calcium Level HEXT ( [facility]) ID Date Data Source [id number] 05/19/2020 10:51:00 AM EST ROMAN ([facility]) Name Value Range Interpretation Code Description Data Kaye rce(s) Supporting Document(s) AST/SGOT 12 U/L 7-37 AST/SGOT ROMAN ([facility]) ALT/SGPT 13 U/L 12-78 ALT/SGPT ROMAN ([facility]) alkaline phosphatase 66 U/L 45-117 Alkaline Phosph atase ROMAN ([facility]) bilirubin,total 0.3 mg/dL 0.2-1.0 Bilirubin,total ATHE ([facility]) bilirubin,direct 0.1 mg/dL 0.0-0.2 Bilirubin,direct AT TRAM ([facility]) total protein 6.8 gm/dL 6.4-8.2 Total Protein ROMAN ( [facility]) albumin 3.7 gm/dL 3.2-5.2 Albumin ROMAN ([facility]) albumin/globulin ratio 1.2-2.2 Albumin/globu gerard Ratio ROMAN ([facility]) ID Date Data Source [id number] 05/19/2020 10:51:00 AM EST HEXT ([facility]) Name Value Range Interpretation Code Description Data Kaye rce(s) Supporting Document(s) Hemoglobin A1c/Hemoglobin.total in Blood 8.7 % Hemoglobin a1C ROMAN ([facility]) estimated average glucose 203 mg/dL 60-110 Above high norm al Estimated Average Glucose [facility]) ID Date Data Source [id number] 05/19/2020 10:51:00 AM EST HEXT ([facility]) Name Value Range Interpretation Code Description Data Kaye rce(s) Supporting Document(s) white blood count 6.8 10 4.0-10.0 White Blood Count HEXT ([facility]) red blood count 3.21 10 4.00-5.40 Below low normal Red Blood Coun t ROMAN ([facility]) hemoglobin 8.9 g/dL 12.0-15.5 Below low normal Hemoglobin ROMAN ( [facility]) hematocrit 28.2 % 36.0-47.0 Below low normal Hematocrit ROMAN ( [facility]) mean corpuscular volume 87.9 fL 80.0-96.0 Mean Corpusc ular Volume ROMAN ([facility]) mean corpuscular hemoglobin 27.7 pg 27.0-33.0 Mean Cor puscular Hemoglobin ROMAN ([facility]) mean corpuscular HGB conc 31.6 g/dL 32.0-36.5 Below low oz l Mean Corpuscular HGB Conc ROMAN ([facility]) red cell distribution width 16.9 % 11.5-14.5 Above high no rmal Red Cell Distribution Width ROMAN ([facility]) platelet count, automated 261 10 150-450 Platelet C ount, Automated ROMAN ([facility]) neutrophils % 55.1 % 36.0-66.0 Neutrophils % ROMAN ( [facility]) lymph % 34.4 % 24.0-44.0 Lymph % ROMAN ([facility]) mono % 6.7 % 2.0-8.0 Above high normal [place] % ROMAN ([facility]) eos % 2.8 % 0.0-3.0 Eos % HEXT ([facility]) baso % 0.7 % 0.0-1.0 Baso % HEXT ([facility]) immature granulocyte % 0.3 % 0-3.0 Immature Gran ulocyte % HEXT ([facility]) nucleated red blood cell % 0.0 % 0-0 Nucleated Red Blood Cell % ROMAN ([facility]) neutrophils # 3.8 10 1.5-8.5 Neutrophils # ROMAN ( [facility]) lymph # 2.4 10 1.5-5.0 Lymph # ROMAN ([facility]) mono # 0.5 10 0.0-0.8 [place] # ROMAN ([facility]) eos # 0.2 10 0.0-0.5 Eos # ROMAN ([facility]) baso # 0.1 10 0.0-0.2 Baso # ROMAN ([facility]) ID Date Data Source [id number] 05/19/2020 10:51:00 AM EST ROMAN ([facility]) Name Value Range Interpretation Code Description Data Kaye rce(s) Supporting Document(s) lipase 97 U/L 73-393 Lipase HEXT ([facility]) ID Date Data Source [id number] 05/19/2020 10:51:00 AM EST ROMAN ([facility]) Name Value Range Interpretation Code Description Data Kaye rce(s) Supporting Document(s) acetone/ketone 0.70 mg/dL <2.81 Acetone/ketone ROMAN ([facility]) ID Date Data Source [id number] 05/19/2020 10:51:00 AM EST ROMAN ([facility]) Name Value Range Interpretation Code Description Data Akye rce(s) Supporting Document(s) glucose, fasting 258 mg/dL 70-100 Above high normal Glucose, Fas ting ROMAN ([facility]) blood urea nitrogen 18 mg/dL 7-18 Blood Urea Nitro gen ROMAN ([facility]) creatinine for GFR 1.29 mg/dL 0.55-1.30 Creatinine for GF R ROMAN ([facility]) glomerular filtration rate >58 Below low normal Beata merular Filtration Rate ROMAN ([facility]) sodium level 142 mEq/L 136-145 Sodium Level ROMAN ([facility]) potassium serum 4.0 mEq/L 3.5-5.1 Potassium Serum ATHE NA ([facility]) chloride level 106 mEq/L 98-107 Chloride Level HEXT ([facility]) carbon dioxide level 27 mEq/L 21-32 Carbon Dioxide Level HEXT ([facility]) anion gap 9 mEq/L 8-16 Anion Gap ROMAN ([facility]) calcium level 9.3 mg/dL 8.5-10.1 Calcium Level ROMAN ( [facility]) ID Date Data Source [id number] 05/19/2020 10:51:00 AM EST ROMAN ([facility]) Name Value Range Interpretation Code Description Data Kaye rce(s) Supporting Document(s) AST/SGOT 12 U/L 7-37 AST/SGOT ROMAN ([facility]) ALT/SGPT 13 U/L 12-78 ALT/SGPT ROMAN ([facility]) alkaline phosphatase 66 U/L 45-117 Alkaline Phosph atase ROMAN ([facility]) bilirubin,total 0.3 mg/dL 0.2-1.0 Bilirubin,total ATHE NA ([facility]) bilirubin,direct 0.1 mg/dL 0.0-0.2 Bilirubin,direct AT TRAM ([facility]) total protein 6.8 gm/dL 6.4-8.2 Total Protein ROMAN ( [facility]) albumin 3.7 gm/dL 3.2-5.2 Albumin ROMAN ([facility]) albumin/globulin ratio 1.2-2.2 Albumin/globu gerard Ratio ROMAN ([facility]) ID Date Data Source [id number] 05/19/2020 10:51:00 AM EST ROMAN ([facility]) Name Value Range Interpretation Code Description Data Kaye rce(s) Supporting Document(s) Hemoglobin A1c/Hemoglobin.total in Blood 8.7 % Hemoglobin a1C ROMAN ([facility]) estimated average glucose 203 mg/dL 60-110 Above high norm al Estimated Average Glucose [facility]) ID Date Data Source [id number] 05/19/2020 10:51:00 AM EST HEXT ([facility]) Name Value Range Interpretation Code Description Data Kaye rce(s) Supporting Document(s) white blood count 6.8 10 4.0-10.0 White Blood Count ROMAN ([facility]) red blood count 3.21 10 4.00-5.40 Below low normal Red Blood Coun t ROMAN ([facility]) hemoglobin 8.9 g/dL 12.0-15.5 Below low normal Hemoglobin ROMAN ( [facility]) hematocrit 28.2 % 36.0-47.0 Below low normal Hematocrit ROMAN ( [facility]) mean corpuscular volume 87.9 fL 80.0-96.0 Mean Corpusc ular Volume ORMAN ([facility]) mean corpuscular hemoglobin 27.7 pg 27.0-33.0 Mean Cor puscular Hemoglobin ROMAN ([facility]) mean corpuscular HGB conc 31.6 g/dL 32.0-36.5 Below low oz l Mean Corpuscular HGB Conc HEXT ([facility]) red cell distribution width 16.9 % 11.5-14.5 Above high no rmal Red Cell Distribution Width ROMAN ([facility]) platelet count, automated 261 10 150-450 Platelet C ount, Automated ROMAN ([facility]) neutrophils % 55.1 % 36.0-66.0 Neutrophils % ROMAN ( [facility]) lymph % 34.4 % 24.0-44.0 Lymph % ROMAN ([facility]) mono % 6.7 % 2.0-8.0 Above high normal [place] % ROMAN ([facility]) eos % 2.8 % 0.0-3.0 Eos % ROMAN ([facility]) baso % 0.7 % 0.0-1.0 Baso % HEXT ([facility]) immature granulocyte % 0.3 % 0-3.0 Immature Gran ulocyte % ROMAN ([facility]) nucleated red blood cell % 0.0 % 0-0 Nucleated Red Blood Cell % ROMAN ([facility]) neutrophils # 3.8 10 1.5-8.5 Neutrophils # ROMAN ( [facility]) lymph # 2.4 10 1.5-5.0 Lymph # ROMAN ([facility]) mono # 0.5 10 0.0-0.8 [place] # ROMAN ([facility]) eos # 0.2 10 0.0-0.5 Eos # ROMAN ([facility]) baso # 0.1 10 0.0-0.2 Baso # ROMAN ([facility]) ID Date Data Source [id number] 05/19/2020 10:51:00 AM EST ROMAN ([facility]) Name Value Range Interpretation Code Description Data Kaye rce(s) Supporting Document(s) lipase 97 U/L 73-393 Lipase HEXT ([facility]) ID Date Data Source [id number] 05/19/2020 10:51:00 AM EST ROMAN ([facility]) Name Value Range Interpretation Code Description Data Kaye rce(s) Supporting Document(s) acetone/ketone 0.70 mg/dL <2.81 Acetone/ketone ROMAN ([facility]) ID Date Data Source [id number] 05/19/2020 10:51:00 AM EST ROMAN ([facility]) Name Value Range Interpretation Code Description Data Kaye rce(s) Supporting Document(s) glucose, fasting 258 mg/dL 70-100 Above high normal Glucose, Fas ting ROMAN ([facility]) blood urea nitrogen 18 mg/dL 7-18 Blood Urea Nitro gen ROMAN ([facility]) creatinine for GFR 1.29 mg/dL 0.55-1.30 Creatinine for GF R ROMAN ([facility]) glomerular filtration rate >58 Below low normal Beata merular Filtration Rate ROMAN ([facility]) sodium level 142 mEq/L 136-145 Sodium Level ROMAN ([facility]) potassium serum 4.0 mEq/L 3.5-5.1 Potassium Serum ATHE NA ([facility]) chloride level 106 mEq/L 98-107 Chloride Level ROMAN ([facility]) carbon dioxide level 27 mEq/L 21-32 Carbon Dioxide Level ROMAN ([facility]) anion gap 9 mEq/L 8-16 Anion Gap ROMAN ([facility]) calcium level 9.3 mg/dL 8.5-10.1 Calcium Level ROMAN ( [facility]) ID Date Data Source [id number] 05/19/2020 10:51:00 AM EST ROMAN ([facility]) Name Value Range Interpretation Code Description Data Kaye rce(s) Supporting Document(s) AST/SGOT 12 U/L 7-37 AST/SGOT ROMAN ([facility]) ALT/SGPT 13 U/L 12-78 ALT/SGPT ROMAN ([facility]) alkaline phosphatase 66 U/L 45-117 Alkaline Phosph atase ROMAN ([facility]) bilirubin,total 0.3 mg/dL 0.2-1.0 Bilirubin,total ATHE NA ([facility]) bilirubin,direct 0.1 mg/dL 0.0-0.2 Bilirubin,direct AT TRAM ([facility]) total protein 6.8 gm/dL 6.4-8.2 Total Protein ROMAN ( [facility]) albumin 3.7 gm/dL 3.2-5.2 Albumin ROMAN ([facility]) albumin/globulin ratio 1.2-2.2 Albumin/globu gerard Ratio ROMAN ([facility]) ID Date Data Source [id number] 05/19/2020 10:51:00 AM EST ROMAN ([facility]) Name Value Range Interpretation Code Description Data Kaye rce(s) Supporting Document(s) Hemoglobin A1c/Hemoglobin.total in Blood 8.7 % Hemoglobin a1C ROMAN ([facility]) estimated average glucose 203 mg/dL 60-110 Above high norm al Estimated Average Glucose HEXT ([facility]) ID Date Data Source [id number] 05/19/2020 10:51:00 AM EST HEXT ([facility]) Name Value Range Interpretation Code Description Data Kaye rce(s) Supporting Document(s) white blood count 6.8 10 4.0-10.0 White Blood Count ROMAN ([facility]) red blood count 3.21 10 4.00-5.40 Below low normal Red Blood Coun t ROMAN ([facility]) hemoglobin 8.9 g/dL 12.0-15.5 Below low normal Hemoglobin HEXT ( [facility]) hematocrit 28.2 % 36.0-47.0 Below low normal Hematocrit HEXT ( [facility]) mean corpuscular volume 87.9 fL 80.0-96.0 Mean Corpusc ular Volume ROMAN ([facility]) mean corpuscular hemoglobin 27.7 pg 27.0-33.0 Mean Cor puscular Hemoglobin ROMAN ([facility]) mean corpuscular HGB conc 31.6 g/dL 32.0-36.5 Below low oz l Mean Corpuscular HGB Conc HEXT ([facility]) red cell distribution width 16.9 % 11.5-14.5 Above high no rmal Red Cell Distribution Width ROMAN ([facility]) platelet count, automated 261 10 150-450 Platelet C ount, Automated ROMAN ([facility]) neutrophils % 55.1 % 36.0-66.0 Neutrophils % ROMAN ( [facility]) lymph % 34.4 % 24.0-44.0 Lymph % ROMAN ([facility]) mono % 6.7 % 2.0-8.0 Above high normal [place] % HEXT ([facility]) eos % 2.8 % 0.0-3.0 Eos % HEXT ([facility]) baso % 0.7 % 0.0-1.0 Baso % HEXT ([facility]) immature granulocyte % 0.3 % 0-3.0 Immature Gran ulocyte % ROMAN ([facility]) nucleated red blood cell % 0.0 % 0-0 Nucleated Red Blood Cell % HEXT ([facility]) neutrophils # 3.8 10 1.5-8.5 Neutrophils # ROMAN ( [facility]) lymph # 2.4 10 1.5-5.0 Lymph # ROMAN ([facility]) mono # 0.5 10 0.0-0.8 [place] # ROMAN ([facility]) eos # 0.2 10 0.0-0.5 Eos # ROMAN ([facility]) baso # 0.1 10 0.0-0.2 Baso # ROMAN ([facility]) ID Date Data Source [id number] 05/19/2020 10:35:00 AM EST ROMAN ([facility]) Name Value Range Interpretation Code Description Data Kaye rce(s) Supporting Document(s) bedside glucose 56 mg/dL 70-105 Below low normal Bedside Glucos e ROMAN ([facility]) ID Date Data Source [id number] 05/19/2020 10:35:00 AM EST ROMAN ([facility]) Name Value Range Interpretation Code Description Data Kaye rce(s) Supporting Document(s) bedside glucose 56 mg/dL 70-105 Below low normal Bedside Glucos e ROMAN ([facility]) ID Date Data Source [id number] 05/19/2020 10:35:00 AM EST ROMAN ([facility]) Name Value Range Interpretation Code Description Data Kaye rce(s) Supporting Document(s) bedside glucose 56 mg/dL 70-105 Below low normal Bedside Glucos e ROMAN ([facility]) ID Date Data Source [id number] 05/19/2020 10:35:00 AM EST ROMAN ([facility]) Name Value Range Interpretation Code Description Data Kaye rce(s) Supporting Document(s) bedside glucose 56 mg/dL 70-105 Below low normal Bedside Glucos e ROMAN ([facility]) ID Date Data Source [id number] 05/19/2020 10:35:00 AM EST ROMAN ([facility]) Name Value Range Interpretation Code Description Data Kaye rce(s) Supporting Document(s) bedside glucose 56 mg/dL 70-105 Below low normal Bedside Glucos e ROMAN ([facility]) ID Date Data Source [id number] 05/19/2020 10:35:00 AM EST ROMAN ([facility]) Name Value Range Interpretation Code Description Data Kaye rce(s) Supporting Document(s) bedside glucose 56 mg/dL 70-105 Below low normal Bedside Glucos e ROMAN ([facility]) ID Date Data Source [id number] 03/23/2020 09:53:00 AM EST ROMAN ([facility]) Name Value Range Interpretation Code Description Data Kaye rce(s) Supporting Document(s) bedside glucose 215 mg/dL 70-105 Above high normal Bedside Gluco se ROMAN ([facility]) ID Date Data Source [id number] 03/23/2020 09:53:00 AM EST ROMAN ([facility]) Name Value Range Interpretation Code Description Data Kaye rce(s) Supporting Document(s) bedside glucose 215 mg/dL 70-105 Above high normal Bedside Gluco se ROMAN ([facility]) ID Date Data Source [id number] 03/23/2020 09:53[facility] Name Value Range Interpretation Code Description Data Kaye rce(s) Supporting Document(s) bedside glucose 215 mg/dL 70-105 Above high normal [facility] ID Date Data Source [id number] 03/23/2020 09:53:00 AM EST [facility]) Name Value Range Interpretation Code Description Data Kaye rce(s) Supporting Document(s) bedside glucose 215 mg/dL 70-105 Above high normal [facility] ID Date Data Source [id number] 03/23/2020 09:53:00 AM EST ROMAN [facility]) Name Value Range Interpretation Code Description Data Kaye rce(s) Supporting Document(s) bedside glucose 215 mg/dL 70-105 Above high normal [facility] Date Data Source [id number] 03/23/2020 09:53:00 AM EST ROMAN [facility]) Name Value Range Interpretation Code Description Data Kaye rce(s) Supporting Document(s) bedside glucose 215 mg/dL 70-105 Above high normal [facility] ID Date Data Source [id number] 03/23/2020 06:02:00 AM EST ROMAN ([facility]) Name Value Range Interpretation Code Description Data Kaye rce(s) Supporting Document(s) acetone/ketone > 46.00 <2.81 Above high normal Acetone/ketone ROMAN ([facility]) ID Date Data Source [id number] 03/23/2020 06:02:00 AM EST ROMAN ([facility]) Name Value Range Interpretation Code Description Data Kaye rce(s) Supporting Document(s) glucose, fasting 297 mg/dL 70-100 Above high normal Glucose, Fas ting ROMAN ([facility]) blood urea nitrogen 8 mg/dL 7-18 Blood Urea Nitro gen ROMAN ([facility]) creatinine for GFR 1.16 mg/dL 0.55-1.30 Creatinine for GF R ROMAN ([facility]) glomerular filtration rate > 60.0 >58 Glomerula r Filtration Rate ROMAN ([facility]) sodium level 134 mEq/L 136-145 Below low normal Sodium Level ATHE ([facility]) potassium serum 4.1 mEq/L 3.5-5.1 Potassium Serum ATHE ([facility]) chloride level 103 mEq/L 98-107 Chloride Level ROMAN ([facility]) carbon dioxide level 19 mEq/L 21-32 Below low normal Carbon Di oxide Level ROMAN ([facility]) anion gap 12 mEq/L 8-16 Anion Gap ROMAN ([facility]) calcium level 8.5 mg/dL 8.5-10.1 Calcium Level ROMAN ( [facility]) AST/SGOT 13 U/L 7-37 AST/SGOT ROMAN ([facility]) ALT/SGPT 17 U/L 12-78 ALT/SGPT ROMAN ([facility]) alkaline phosphatase 57 U/L 45-117 Alkaline Phosph atase ROMAN ([facility]) bilirubin,total 0.4 mg/dL 0.2-1.0 Bilirubin,total ATHE ([facility]) total protein 6.2 gm/dL 6.4-8.2 Below low normal Total Protein AT [facility]) albumin 3.4 gm/dL 3.2-5.2 Albumin ROMAN ([facility]) albumin/globulin ratio 1.2-2.2 Albumin/globu gerard Ratio HEXT ([facility]) ID Date Data Source [id number] 03/23/2020 06:02:00 AM EST HEXT ([facility]) Name Value Range Interpretation Code Description Data Kaye rce(s) Supporting Document(s) white blood count 5.7 10 4.0-10.0 White Blood Count HEXT ([facility]) red blood count 3.11 10 4.00-5.40 Below low normal Red Blood Coun t HEXT ([facility]) hemoglobin 8.6 g/dL 12.0-15.5 Below low normal Hemoglobin HEXT ( [facility]) hematocrit 26.3 % 36.0-47.0 Below low normal Hematocrit HEXT ( [facility]) mean corpuscular volume 84.6 fL 80.0-96.0 Mean Corpusc ular Volume HEXT ([facility]) mean corpuscular hemoglobin 27.7 pg 27.0-33.0 Mean Cor puscular Hemoglobin HEXT ([facility]) mean corpuscular HGB conc 32.7 g/dL 32.0-36.5 Mean Corpu scular HGB Conc HEXT ([facility]) red cell distribution width 15.5 % 11.5-14.5 Above high no rmal Red Cell Distribution Width HEXT ([facility]) platelet count, automated 218 10 150-450 Platelet C ount, Automated ROMAN ([facility]) nucleated red blood cell % 0.0 % 0-0 Nucleated Red Blood Cell % HEXT ([facility]) ID Date Data Source [id number] 03/23/2020 06:02:00 AM EST HEXT ([facility]) Name Value Range Interpretation Code Description Data Kaye rce(s) Supporting Document(s) white blood count 5.7 10 4.0-10.0 White Blood Count HEXT ([facility]) red blood count 3.11 10 4.00-5.40 Below low normal Red Blood Coun t ROMAN ([facility]) hemoglobin 8.6 g/dL 12.0-15.5 Below low normal Hemoglobin ROMAN ( [facility]) hematocrit 26.3 % 36.0-47.0 Below low normal Hematocrit ROMAN ( [facility]) mean corpuscular volume 84.6 fL 80.0-96.0 Mean Corpusc ular Volume HEXT ([facility]) mean corpuscular hemoglobin 27.7 pg 27.0-33.0 Mean Cor puscular Hemoglobin HEXT ([facility]) mean corpuscular HGB conc 32.7 g/dL 32.0-36.5 Mean Corpu scular HGB Conc HEXT ([facility]) red cell distribution width 15.5 % 11.5-14.5 Above high no rmal Red Cell Distribution Width HEXT ([facility]) platelet count, automated 218 10 150-450 Platelet C ount, Automated HEXT ([facility]) nucleated red blood cell % 0.0 % 0-0 Nucleated Red Blood Cell % HEXT ([facility]) ID Date Data Source [id number] 03/23/2020 06:02:00 AM EST HEXT ([facility]) Name Value Range Interpretation Code Description Data Kaye rce(s) Supporting Document(s) acetone/ketone > 46.00 <2.81 Above high normal Acetone/ketone HEXT ([facility]) ID Date Data Source [id number] 03/23/2020 06:02:00 AM EST HEXT ([facility]) Name Value Range Interpretation Code Description Data Kaye rce(s) Supporting Document(s) glucose, fasting 297 mg/dL 70-100 Above high normal Glucose, Fas ting HEXT ([facility]) blood urea nitrogen 8 mg/dL 7-18 Blood Urea Nitro gen HEXT ([facility]) creatinine for GFR 1.16 mg/dL 0.55-1.30 Creatinine for GF R ROMAN ([facility]) sodium level 134 mEq/L 136-145 Below low normal Sodium Level ATHE NA ([facility]) glomerular filtration rate > 60.0 >58 Glomerula r Filtration Rate ROMAN ([facility]) potassium serum 4.1 mEq/L 3.5-5.1 Potassium Serum ATHE ([facility]) chloride level 103 mEq/L 98-107 Chloride Level ROMAN ([facility]) carbon dioxide level 19 mEq/L 21-32 Below low normal Carbon Di oxide Level ROMAN ([facility]) anion gap 12 mEq/L 8-16 Anion Gap ROMAN ([facility]) calcium level 8.5 mg/dL 8.5-10.1 Calcium Level ROMAN ( [facility]) AST/SGOT 13 U/L 7-37 AST/SGOT ROMAN ([facility]) ALT/SGPT 17 U/L 12-78 ALT/SGPT ROMAN ([facility]) alkaline phosphatase 57 U/L 45-117 Alkaline Phosph atase ROMAN ([facility]) bilirubin,total 0.4 mg/dL 0.2-1.0 Bilirubin,total ATHE ([facility]) total protein 6.2 gm/dL 6.4-8.2 Below low normal Total Protein AT TRAM ([facility]) albumin 3.4 gm/dL 3.2-5.2 Albumin ROMAN ([facility]) albumin/globulin ratio 1.2-2.2 Albumin/globu gerard Ratio HEXT ([facility]) ID Date Data Source [id number] 03/23/2020 06:02:00 AM EST HEXT ([facility]) Name Value Range Interpretation Code Description Data Kaye rce(s) Supporting Document(s) white blood count 5.7 10 4.0-10.0 White Blood Count ROMAN ([facility]) red blood count 3.11 10 4.00-5.40 Below low normal Red Blood Coun t ROMAN ([facility]) hemoglobin 8.6 g/dL 12.0-15.5 Below low normal Hemoglobin ROMAN ( [facility]) hematocrit 26.3 % 36.0-47.0 Below low normal Hematocrit HEXT ( [facility]) mean corpuscular volume 84.6 fL 80.0-96.0 Mean Corpusc ular Volume ROMAN ([facility]) mean corpuscular hemoglobin 27.7 pg 27.0-33.0 Mean Cor puscular Hemoglobin ROMAN ([facility]) mean corpuscular HGB conc 32.7 g/dL 32.0-36.5 Mean Corpu scular HGB Conc HEXT ([facility]) red cell distribution width 15.5 % 11.5-14.5 Above high no rmal Red Cell Distribution Width HEXT ([facility]) platelet count, automated 218 10 150-450 Platelet C ount, Automated ROMAN ([facility]) nucleated red blood cell % 0.0 % 0-0 Nucleated Red Blood Cell % HEXT ([facility]) ID Date Data Source [id number] 03/23/2020 06:02:00 AM EST HEXT ([facility]) Name Value Range Interpretation Code Description Data Kaye rce(s) Supporting Document(s) acetone/ketone > 46.00 <2.81 Above high normal Acetone/ketone HEXT ([facility]) ID Date Data Source [id number] 03/23/2020 06:02:00 AM EST HEXT ([facility]) Name Value Range Interpretation Code Description Data Kaye rce(s) Supporting Document(s) glucose, fasting 297 mg/dL 70-100 Above high normal Glucose, Fas ting HEXT ([facility]) blood urea nitrogen 8 mg/dL 7-18 Blood Urea Nitro gen ROMAN ([facility]) creatinine for GFR 1.16 mg/dL 0.55-1.30 Creatinine for GF R ROMAN ([facility]) glomerular filtration rate > 60.0 >58 Glomerula r Filtration Rate HEXT ([facility]) sodium level 134 mEq/L 136-145 Below low normal Sodium Level ATHE NA ([facility]) potassium serum 4.1 mEq/L 3.5-5.1 Potassium Serum ATHE NA ([facility]) chloride level 103 mEq/L 98-107 Chloride Level ROMAN ([facility]) carbon dioxide level 19 mEq/L 21-32 Below low normal Carbon Di oxide Level ROMAN ([facility]) calcium level 8.5 mg/dL 8.5-10.1 Calcium Level ROMAN ( [facility]) anion gap 12 mEq/L 8-16 Anion Gap ROMAN ([facility]) AST/SGOT 13 U/L 7-37 AST/SGOT ROMAN ([facility]) ALT/SGPT 17 U/L 12-78 ALT/SGPT ROMAN ([facility]) alkaline phosphatase 57 U/L 45-117 Alkaline Phosph atase ROMAN ([facility]) bilirubin,total 0.4 mg/dL 0.2-1.0 Bilirubin,total ATHE ([facility]) total protein 6.2 gm/dL 6.4-8.2 Below low normal Total Protein AT TRAM ([facility]) albumin/globulin ratio 1.2-2.2 Albumin/globu gerard Ratio ROMAN ([facility]) albumin 3.4 gm/dL 3.2-5.2 Albumin ROMAN ([facility]) ID Date Data Source [id number] 03/23/2020 06:02:00 AM EST ROMAN ([facility]) Name Value Range Interpretation Code Description Data Kaye rce(s) Supporting Document(s) white blood count 5.7 10 4.0-10.0 White Blood Count ROMAN ([facility]) red blood count 3.11 10 4.00-5.40 Below low normal Red Blood Coun t ROMAN ([facility]) hemoglobin 8.6 g/dL 12.0-15.5 Below low normal Hemoglobin ROMAN ( [facility]) hematocrit 26.3 % 36.0-47.0 Below low normal Hematocrit ROMAN ( [facility]) mean corpuscular volume 84.6 fL 80.0-96.0 Mean Corpusc ular Volume ROMAN ([facility]) mean corpuscular hemoglobin 27.7 pg 27.0-33.0 Mean Cor puscular Hemoglobin HEXT ([facility]) mean corpuscular HGB conc 32.7 g/dL 32.0-36.5 Mean Corpu scular HGB Conc ROMAN ([facility]) red cell distribution width 15.5 % 11.5-14.5 Above high no rmal Red Cell Distribution Width ROMAN ([facility]) platelet count, automated 218 10 150-450 Platelet C ount, Automated ROMAN ([facility]) nucleated red blood cell % 0.0 % 0-0 Nucleated Red Blood Cell % HEXT ([facility]) ID Date Data Source [id number] 03/23/2020 06:02:00 AM EST HEXT ([facility]) Name Value Range Interpretation Code Description Data Kaye rce(s) Supporting Document(s) acetone/ketone > 46.00 <2.81 Above high normal Acetone/ketone HEXT ([facility]) ID Date Data Source [id number] 03/23/2020 06:02:00 AM EST HEXT ([facility]) Name Value Range Interpretation Code Description Data Kaye rce(s) Supporting Document(s) glucose, fasting 297 mg/dL 70-100 Above high normal Glucose, Fas ting ROMAN ([facility]) blood urea nitrogen 8 mg/dL 7-18 Blood Urea Nitro gen ROMAN ([facility]) creatinine for GFR 1.16 mg/dL 0.55-1.30 Creatinine for GF R HEXT ([facility]) glomerular filtration rate > 60.0 >58 Glomerula r Filtration Rate HEXT ([facility]) sodium level 134 mEq/L 136-145 Below low normal Sodium Level ATHE NA ([facility]) potassium serum 4.1 mEq/L 3.5-5.1 Potassium Serum ATHE NA ([facility]) chloride level 103 mEq/L 98-107 Chloride Level ROMAN ([facility]) carbon dioxide level 19 mEq/L 21-32 Below low normal Carbon Di oxide Level ROMAN ([facility]) anion gap 12 mEq/L 8-16 Anion Gap ROMAN ([facility]) calcium level 8.5 mg/dL 8.5-10.1 Calcium Level ROMAN ( [facility]) AST/SGOT 13 U/L 7-37 AST/SGOT ROMAN ([facility]) ALT/SGPT 17 U/L 12-78 ALT/SGPT ROMAN ([facility]) alkaline phosphatase 57 U/L 45-117 Alkaline Phosph atase ROMAN ([facility]) bilirubin,total 0.4 mg/dL 0.2-1.0 Bilirubin,total ATHE ([facility]) total protein 6.2 gm/dL 6.4-8.2 Below low normal Total Protein AT TRAM ([facility]) albumin 3.4 gm/dL 3.2-5.2 Albumin ROMAN ([facility]) albumin/globulin ratio 1.2-2.2 Albumin/globu gerard Ratio ROMAN ([facility]) ID Date Data Source [id number] 03/23/2020 06:02:00 AM EST ROMAN ([facility]) Name Value Range Interpretation Code Description Data Kaye rce(s) Supporting Document(s) acetone/ketone > 46.00 <2.81 Above high normal Acetone/ketone ROMAN ([facility]) ID Date Data Source [id number] 03/23/2020 06:02:00 AM EST ROMAN ([facility]) Name Value Range Interpretation Code Description Data Kaye rce(s) Supporting Document(s) glucose, fasting 297 mg/dL 70-100 Above high normal Glucose, Fas ting ROMAN ([facility]) blood urea nitrogen 8 mg/dL 7-18 Blood Urea Nitro gen ROMAN ([facility]) creatinine for GFR 1.16 mg/dL 0.55-1.30 Creatinine for GF R ROMAN ([facility]) glomerular filtration rate > 60.0 >58 Glomerula r Filtration Rate ROMAN ([facility]) sodium level 134 mEq/L 136-145 Below low normal Sodium Level ATHE NA ([facility]) potassium serum 4.1 mEq/L 3.5-5.1 Potassium Serum ATHE ([facility]) chloride level 103 mEq/L 98-107 Chloride Level ROMAN ([facility]) carbon dioxide level 19 mEq/L 21-32 Below low normal Carbon Di oxide Level ROMAN ([facility]) anion gap 12 mEq/L 8-16 Anion Gap ROMAN ([facility]) calcium level 8.5 mg/dL 8.5-10.1 Calcium Level ROMAN ( [facility]) AST/SGOT 13 U/L 7-37 AST/SGOT ROMAN ([facility]) ALT/SGPT 17 U/L 12-78 ALT/SGPT ROMAN ([facility]) alkaline phosphatase 57 U/L 45-117 Alkaline Phosph atase ROMAN ([facility]) bilirubin,total 0.4 mg/dL 0.2-1.0 Bilirubin,total ATHE ([facility]) total protein 6.2 gm/dL 6.4-8.2 Below low normal Total Protein AT TRAM ([facility]) albumin 3.4 gm/dL 3.2-5.2 Albumin ROMAN ([facility]) albumin/globulin ratio 1.2-2.2 Albumin/globu gerard Ratio ROMAN ([facility]) ID Date Data Source [id number] 03/23/2020 06:02:00 AM EST HEXT ([facility]) Name Value Range Interpretation Code Description Data Kaye rce(s) Supporting Document(s) white blood count 5.7 10 4.0-10.0 White Blood Count ROMAN ([facility]) red blood count 3.11 10 4.00-5.40 Below low normal Red Blood Coun t ROMAN ([facility]) hemoglobin 8.6 g/dL 12.0-15.5 Below low normal Hemoglobin ROMAN ( [facility]) hematocrit 26.3 % 36.0-47.0 Below low normal Hematocrit ROMAN ( [facility]) mean corpuscular volume 84.6 fL 80.0-96.0 Mean Corpusc ular Volume HEXT ([facility]) mean corpuscular hemoglobin 27.7 pg 27.0-33.0 Mean Cor puscular Hemoglobin ROMAN ([facility]) mean corpuscular HGB conc 32.7 g/dL 32.0-36.5 Mean Corpu scular HGB Conc ROMAN ([facility]) red cell distribution width 15.5 % 11.5-14.5 Above high no rmal Red Cell Distribution Width HEXT ([facility]) platelet count, automated 218 10 150-450 Platelet C ount, Automated HEXT ([facility]) nucleated red blood cell % 0.0 % 0-0 Nucleated Red Blood Cell % HEXT ([facility]) ID Date Data Source [id number] 03/23/2020 06:02:00 AM EST HEXT ([facility]) Name Value Range Interpretation Code Description Data Kaye rce(s) Supporting Document(s) acetone/ketone > 46.00 <2.81 Above high normal Acetone/ketone HEXT ([facility]) ID Date Data Source [id number] 03/23/2020 06:02:00 AM EST HEXT ([facility]) Name Value Range Interpretation Code Description Data Kaye rce(s) Supporting Document(s) glucose, fasting 297 mg/dL 70-100 Above high normal Glucose, Fas ting ROMAN ([facility]) blood urea nitrogen 8 mg/dL 7-18 Blood Urea Nitro gen HEXT ([facility]) creatinine for GFR 1.16 mg/dL 0.55-1.30 Creatinine for GF R HEXT ([facility]) glomerular filtration rate > 60.0 >58 Glomerula r Filtration Rate ROMAN ([facility]) sodium level 134 mEq/L 136-145 Below low normal Sodium Level ATHE NA ([facility]) potassium serum 4.1 mEq/L 3.5-5.1 Potassium Serum ATHE ([facility]) chloride level 103 mEq/L 98-107 Chloride Level ROMAN ([facility]) carbon dioxide level 19 mEq/L 21-32 Below low normal Carbon Di oxide Level ROMAN ([facility]) anion gap 12 mEq/L 8-16 Anion Gap ROMAN ([facility]) calcium level 8.5 mg/dL 8.5-10.1 Calcium Level ROMAN ( [facility]) AST/SGOT 13 U/L 7-37 AST/SGOT ROMAN ([facility]) ALT/SGPT 17 U/L 12-78 ALT/SGPT ROMAN ([facility]) bilirubin,total 0.4 mg/dL 0.2-1.0 Bilirubin,total ATHE ([facility]) alkaline phosphatase 57 U/L 45-117 Alkaline Phosph atase ROMAN ([facility]) total protein 6.2 gm/dL 6.4-8.2 Below low normal Total Protein AT TRAM ([facility]) albumin 3.4 gm/dL 3.2-5.2 Albumin ROMAN ([facility]) albumin/globulin ratio 1.2-2.2 Albumin/globu gerard Ratio HEXT ([facility]) ID Date Data Source [id number] 03/23/2020 06:02:00 AM EST ROMAN ([facility]) Name Value Range Interpretation Code Description Data Kaye rce(s) Supporting Document(s) white blood count 5.7 10 4.0-10.0 White Blood Count ROMAN ([facility]) red blood count 3.11 10 4.00-5.40 Below low normal Red Blood Coun t ROMAN ([facility]) hemoglobin 8.6 g/dL 12.0-15.5 Below low normal Hemoglobin ROMAN ( [facility]) hematocrit 26.3 % 36.0-47.0 Below low normal Hematocrit ROMAN ( [facility]) mean corpuscular volume 84.6 fL 80.0-96.0 Mean Corpusc ular Volume ROMAN ([facility]) mean corpuscular hemoglobin 27.7 pg 27.0-33.0 Mean Cor puscular Hemoglobin ROMAN ([facility]) mean corpuscular HGB conc 32.7 g/dL 32.0-36.5 Mean Corpu scular HGB Conc ROMAN ([facility]) red cell distribution width 15.5 % 11.5-14.5 Above high no rmal Red Cell Distribution Width ROMAN ([facility]) platelet count, automated 218 10 150-450 Platelet C ount, Automated ROMAN ([facility]) nucleated red blood cell % 0.0 % 0-0 Nucleated Red Blood Cell % HEXT ([facility]) ID Date Data Source [id number] 03/23/2020 05:08:00 AM EST HEXT ([facility]) Name Value Range Interpretation Code Description Data Kaye rce(s) Supporting Document(s) bedside glucose 279 mg/dL 70-105 Above high normal Bedside Gluco se [facility]) ID Date Data Source [id number] 03/23/2020 05:08:00 AM EST HEXT ([facility]) Name Value Range Interpretation Code Description Data Kaye rce(s) Supporting Document(s) bedside glucose 279 mg/dL 70-105 Above high normal Bedside Gluco se HEXT ([facility]) ID Date Data Source [id number] 03/23/2020 05:08:00 AM EST ROMAN ([facility]) Name Value Range Interpretation Code Description Data Kaye rce(s) Supporting Document(s) bedside glucose 279 mg/dL 70-105 Above high normal Bedside Gluco se HEXT ([facility]) ID Date Data Source [id number] 03/23/2020 05:08:00 AM EST ROMAN ([facility]) Name Value Range Interpretation Code Description Data Kaye rce(s) Supporting Document(s) bedside glucose 279 mg/dL 70-105 Above high normal Bedside Gluco se ROMAN ([facility]) ID Date Data Source [id number] 03/23/2020 05:08:00 AM EST ROMAN ([facility]) Name Value Range Interpretation Code Description Data Kaye rce(s) Supporting Document(s) bedside glucose 279 mg/dL 70-105 Above high normal Bedside Gluco se ROMAN ([facility]) ID Date Data Source [id number] 03/23/2020 05:08:00 AM EST ROMAN ([facility]) Name Value Range Interpretation Code Description Data Kaye rce(s) Supporting Document(s) bedside glucose 279 mg/dL 70-105 Above high normal Bedside Gluco se HEXT ([facility]) ID Date Data Source [id number] 03/23/2020 02:09:00 AM EST ROMAN ([facility]) Name Value Range Interpretation Code Description Data Kaye rce(s) Supporting Document(s) bedside glucose 198 mg/dL 70-105 Above high normal Bedside Gluco se ROMAN ([facility]) ID Date Data Source [id number] 03/23/2020 02:09:00 AM EST ROMAN [facility]) Name Value Range Interpretation Code Description Data Kaye rce(s) Supporting Document(s) bedside glucose 198 mg/dL 70-105 Above high normal Bedside Gluco se ROMAN ([facility]) ID Date Data Source [id number] 03/23/2020 02:09:00 AM EST ROMAN ([facility]) Name Value Range Interpretation Code Description Data Kaye rce(s) Supporting Document(s) bedside glucose 198 mg/dL 70-105 Above high normal [facility] Date Data Source [id number] 03/23/2020 02:09:00 AM EST ROMAN ([facility]) Name Value Range Interpretation Code Description Data Kaye rce(s) Supporting Document(s) bedside glucose 198 mg/dL 70-105 Above high normal Bedside Gluco se ROMAN ([facility]) ID Date Data Source [id number] 03/23/2020 02:09:00 AM EST ROMAN ([facility]) Name Value Range Interpretation Code Description Data Kaye rce(s) Supporting Document(s) bedside glucose 198 mg/dL 70-105 Above high normal Bedside Gluco se ROMAN ([facility]) ID Date Data Source [id number] 03/23/2020 02:09:00 AM EST ROMAN ([facility]) Name Value Range Interpretation Code Description Data Kaye rce(s) Supporting Document(s) bedside glucose 198 mg/dL 70-105 Above high normal Bedside Gluco se ROMAN ([facility]) ID Date Data Source [id number] 03/22/2020 11:52:00 PM EST ROMAN ([facility]) Name Value Range Interpretation Code Description Data Kaye rce(s) Supporting Document(s) bedside glucose 176 mg/dL 70-105 Above high normal [facility] Date Data Source [id number] 03/22/2020 11:52:00 PM EST ROMAN ([facility]) Name Value Range Interpretation Code Description Data Kaye rce(s) Supporting Document(s) bedside glucose 176 mg/dL 70-105 Above high normal [facility]side [facility] ID Date Data Source [id number] 03/22/2020 11:52:00 PM EST ROMAN [facility]) Name Value Range Interpretation Code Description Data Kaye rce(s) Supporting Document(s) bedside glucose 176 mg/dL 70-105 Above high normal Bedside Gluco se ROMAN ([facility]) ID Date Data Source [id number] 03/22/2020 11:52:00 PM EST ROMAN ([facility]) Name Value Range Interpretation Code Description Data Kaye rce(s) Supporting Document(s) bedside glucose 176 mg/dL 70-105 Above high normal Bedside Gluco se ROMAN ([facility]) ID Date Data Source [id number] 03/22/2020 11:52:00 PM EST ROMAN ([facility]) Name Value Range Interpretation Code Description Data Kaye rce(s) Supporting Document(s) bedside glucose 176 mg/dL 70-105 Above high normal Bedside Gluco se HEXT ([facility]) ID Date Data Source [id number] 03/22/2020 11:52:00 PM EST ROMAN ([facility]) Name Value Range Interpretation Code Description Data Kaye rce(s) Supporting Document(s) bedside glucose 176 mg/dL 70-105 Above high normal Bedside Gluco se ROMAN ([facility]) ID Date Data Source [id number] 03/22/2020 08:46:00 PM EST ROMAN ([facility]) Name Value Range Interpretation Code Description Data Kaye rce(s) Supporting Document(s) bedside glucose 209 mg/dL 70-105 Above high normal Bedside Gluco se ROMAN ([facility]) ID Date Data Source [id number] 03/22/2020 08:46:00 PM EST ROMAN ([facility]) Name Value Range Interpretation Code Description Data Kaye rce(s) Supporting Document(s) bedside glucose 209 mg/dL 70-105 Above high [facility] Date Data Source [id number] 03/22/2020 08:46:00 PM EST ROMAN ([facility]) Name Value Range Interpretation Code Description Data Kaye rce(s) Supporting Document(s) bedside glucose 209 mg/dL 70-105 Above high normal Bedside Gluco se ROMAN ([facility]) ID Date Data Source [id number] 03/22/2020 08:46:00 PM EST ROMAN ([facility]) Name Value Range Interpretation Code Description Data Kaye rce(s) Supporting Document(s) bedside glucose 209 mg/dL 70-105 Above high normal Bedside Gluco se ROMAN ([facility]) ID Date Data Source [id number] 03/22/2020 08:46:00 PM EST ROMAN ([facility]) Name Value Range Interpretation Code Description Data Kaye rce(s) Supporting Document(s) bedside glucose 209 mg/dL 70-105 Above high normal Bedside Gluco se HEXT ([facility]) ID Date Data Source [id number] 03/22/2020 08:46:00 PM EST ROMAN ([facility]) Name Value Range Interpretation Code Description Data Kaye rce(s) Supporting Document(s) bedside glucose 209 mg/dL 70-105 Above high normal Bedside Gluco se ROMAN ([facility]) ID Date Data Source [id number] 03/22/2020 04:30:00 PM EST ROMAN ([facility]) Name Value Range Interpretation Code Description Data Kaye rce(s) Supporting Document(s) bedside glucose 199 mg/dL 70-105 Above high normal [facility] Date Data Source [id number] 03/22/2020 04:30:00 PM [facility] Name Value Range Interpretation Code Description Data Kaye rce(s) Supporting Document(s) bedside glucose 199 mg/dL 70-105 Above high normal Bedside Gluco se [facility] ([facility]) ID Date Data Source [id number] 03/22/2020 04:30:00 PM EST ROMAN ([facility]) Name Value Range Interpretation Code Description Data Kaye rce(s) Supporting Document(s) bedside glucose 199 mg/dL 70-105 Above high normal Bedside Gluco se [facility]AN ([facility]) ID Date Data Source [id number] 03/22/2020 04:30:00 PM EST ROMAN ([facility]) Name Value Range Interpretation Code Description Data Kaye rce(s) Supporting Document(s) bedside glucose 199 mg/dL 70-105 Above high normal Bedside Gluco se [facility]EXT ([facility]) ID Date Data Source [id number] 03/22/2020 04:30:00 PM EST [facility]AN ([facility]) Name Value Range Interpretation Code Description Data Kaye rce(s) Supporting Document(s) bedside glucose 199 mg/dL 70-105 Above high normal Bedside Gluco se [facility]EXT ([facility]) ID Date Data Source [id number] 03/22/2020 04:30:00 PM EST ROMAN ([facility]) Name Value Range Interpretation Code Description Data Kaye rce(s) Supporting Document(s) bedside glucose 199 mg/dL 70-105 Above high normal Bedside Gluco se [facility]AN ([facility]) ID Date Data Source [id number] 03/22/2020 11:15:00 AM EST ROMAN ([facility]) Name Value Range Interpretation Code Description Data Kaye rce(s) Supporting Document(s) bedside glucose 169 mg/dL 70-105 Above high normal Bedside Gluco se [facility]) ID Date Data Source [id number] 03/22/2020 11:15:00 AM EST [facility]AN ([facility]) Name Value Range Interpretation Code Description Data Kaye rce(s) Supporting Document(s) bedside glucose 169 mg/dL 70-105 Above high normal Bedside Gluco se ROMAN ([facility]) ID Date Data Source [id number] 03/22/2020 11:15:00 AM EST [facility] ([facility]) Name Value Range Interpretation Code Description Data Kaye rce(s) Supporting Document(s) bedside glucose 169 mg/dL 70-105 Above high normal Bedside Gluco se [facility]AN ([facility]) ID Date Data Source [id number] 03/22/2020 11:15:00 AM EST [facility]AN ([facility]) Name Value Range Interpretation Code Description Data Kaye rce(s) Supporting Document(s) bedside glucose 169 mg/dL 70-105 Above high normal Bedside Gluco se [facility] ([facility]) ID Date Data Source [id number] 03/22/2020 11:15:00 AM EST [facility] ([facility]) Name Value Range Interpretation Code Description Data Kaye rce(s) Supporting Document(s) bedside glucose 169 mg/dL 70-105 Above high normal Bedside Gluco se [facility]AN ([facility]) ID Date Data Source [id number] 03/22/2020 11:15:00 AM EST [facility] ([facility]) Name Value Range Interpretation Code Description Data Kaye rce(s) Supporting Document(s) bedside glucose 169 mg/dL 70-105 Above high normal [facility] Date Data Source [id number] 03/22/2020 08:15:00 AM [facility] Name Value Range Interpretation Code Description Data Kaye rce(s) Supporting Document(s) acetone/ketone 25.32 mg/dL <2.81 Above high normal Acetone/keton e [facility] ([facility]) ID Date Data Source [id number] 03/22/2020 08:15:00 AM EST [facility] ([facility]) Name Value Range Interpretation Code Description Data Kaye rce(s) Supporting Document(s) glucose, fasting 147 mg/dL 70-100 Above high normal Glucose, Fas ting [facility] ([facility]) blood urea nitrogen 11 mg/dL 7-18 Blood Urea Nitro gen ROMAN ([facility]) creatinine for GFR 1.10 mg/dL 0.55-1.30 Creatinine for GF R HEXT ([facility]) glomerular filtration rate > 60.0 >58 Glomerula r Filtration Rate HEXT ([facility]) sodium level 139 mEq/L 136-145 Sodium Level HEXT ([facility]) chloride level 107 mEq/L 98-107 Chloride Level HEXT ([facility]) potassium serum 3.4 mEq/L 3.5-5.1 Below low normal Potassium Seru m [facility] ([facility]) carbon dioxide level 22 mEq/L 21-32 Carbon Dioxide Level HEXT ([facility]) anion gap 10 mEq/L 8-16 Anion Gap HEXT ([facility]) calcium level 8.4 mg/dL 8.5-10.1 Below low normal Calcium Level AT [facility]) AST/SGOT 10 U/L 7-37 AST/SGOT [facility] ([facility]) ALT/SGPT 14 U/L 12-78 ALT/SGPT [facility] ([facility]) alkaline phosphatase 54 U/L 45-117 Alkaline Phosph atase [facility] ([facility]) total protein 5.8 gm/dL 6.4-8.2 Below low normal Total Protein AT [facility]) bilirubin,total 0.6 mg/dL 0.2-1.0 Bilirubin,total ATHE ([facility]) albumin 3.1 gm/dL 3.2-5.2 Below low normal Albumin HEXT ( [facility]) albumin/globulin ratio 1.2-2.2 Below low normal Albumin /globulin Ratio ROMAN ([facility]) ID Date Data Source [id number] 03/22/2020 08:15:00 AM EST [facility] ([facility]) Name Value Range Interpretation Code Description Data Kaye rce(s) Supporting Document(s) white blood count 5.1 10 4.0-10.0 White Blood Count [facility] ([facility]) red blood count 3.24 10 4.00-5.40 Below low normal Red Blood Coun t HEXT ([facility]) hemoglobin 8.9 g/dL 12.0-15.5 Below low normal Hemoglobin HEXT ( [facility]) hematocrit 27.2 % 36.0-47.0 Below low normal Hematocrit HEXT ( [facility]) mean corpuscular hemoglobin 27.5 pg 27.0-33.0 Mean Cor puscular Hemoglobin ROMAN ([facility]) mean corpuscular volume 84.0 fL 80.0-96.0 Mean Corpusc ular Volume HEXT ([facility]) mean corpuscular HGB conc 32.7 g/dL 32.0-36.5 Mean Corpu scular HGB Conc HEXT ([facility]) red cell distribution width 15.2 % 11.5-14.5 Above high no rmal Red Cell Distribution Width [facility]AN ([facility]) platelet count, automated 214 10 150-450 Platelet C ount, Automated ROMAN ([facility]) nucleated red blood cell % 0.0 % 0-0 Nucleated Red Blood Cell % HEXT ([facility]) ID Date Data Source [id number] 03/22/2020 08:15:00 AM EST [facility]AN ([facility]) Name Value Range Interpretation Code Description Data Kaye rce(s) Supporting Document(s) acetone/ketone 25.32 mg/dL <2.81 Above high normal Acetone/keton e [facility]) ID Date Data Source [id number] 03/22/2020 08:15:00 AM EST [facility]AN ([facility]) Name Value Range Interpretation Code Description Data Kaye rce(s) Supporting Document(s) glucose, fasting 147 mg/dL 70-100 Above high normal Glucose, Fas ting [facility]AN ([facility]) blood urea nitrogen 11 mg/dL 7-18 Blood Urea Nitro gen ROMAN ([facility]) creatinine for GFR 1.10 mg/dL 0.55-1.30 Creatinine for GF R ROM[facility] ([facility]) glomerular filtration rate > 60.0 >58 Glomerula r Filtration Rate ROM[facility] ([facility]) sodium level 139 mEq/L 136-145 Sodium Level ROMAN ([facility]) potassium serum 3.4 mEq/L 3.5-5.1 Below low normal Potassium Seru m [facility] ([facility]) chloride level 107 mEq/L 98-107 Chloride Level HEXT ([facility]) carbon dioxide level 22 mEq/L 21-32 Carbon Dioxide Level [facility] ([facility]) anion gap 10 mEq/L 8-16 Anion Gap [facility] ([facility]) calcium level 8.4 mg/dL 8.5-10.1 Below low normal Calcium Level AT [facility] ([facility]) AST/SGOT 10 U/L 7-37 AST/SGOT [facility] ([facility]) ALT/SGPT 14 U/L 12-78 ALT/SGPT HEXT ([facility]) alkaline phosphatase 54 U/L 45-117 Alkaline Phosph atase [facility] ([facility]) bilirubin,total 0.6 mg/dL 0.2-1.0 Bilirubin,total ATHE NA ([facility]) total protein 5.8 gm/dL 6.4-8.2 Below low normal Total Protein AT [facility] ([facility]) albumin/globulin ratio 1.2-2.2 Below low normal Albumin /globulin Ratio [facility] ([facility]) albumin 3.1 gm/dL 3.2-5.2 Below low normal Albumin ROMAN ( [facility]) ID Date Data Source [id number] 03/22/2020 08:15:00 AM EST [facility]AN ([facility]) Name Value Range Interpretation Code Description Data Kaye rce(s) Supporting Document(s) white blood count 5.1 10 4.0-10.0 White Blood Count [facility] ([facility]) red blood count 3.24 10 4.00-5.40 Below low normal Red Blood Coun t ROMAN ([facility]) hemoglobin 8.9 g/dL 12.0-15.5 Below low normal Hemoglobin ROMAN ( [facility]) hematocrit 27.2 % 36.0-47.0 Below low normal Hematocrit ROMAN ( [facility]) mean corpuscular volume 84.0 fL 80.0-96.0 Mean Corpusc ular Volume [facility]EXT ([facility]) mean corpuscular hemoglobin 27.5 pg 27.0-33.0 Mean Cor puscular Hemoglobin HEXT ([facility]) mean corpuscular HGB conc 32.7 g/dL 32.0-36.5 Mean Corpu scular HGB Conc HEXT ([facility]) red cell distribution width 15.2 % 11.5-14.5 Above high no rmal Red Cell Distribution Width [facility]AN ([facility]) platelet count, automated 214 10 150-450 Platelet C ount, Automated ROM[facility] ([facility]) nucleated red blood cell % 0.0 % 0-0 Nucleated Red Blood Cell % [facility]EXT ([facility]) ID Date Data Source [id number] 03/22/2020 08:15:00 AM EST [facility]AN ([facility]) Name Value Range Interpretation Code Description Data Kaye rce(s) Supporting Document(s) acetone/ketone 25.32 mg/dL <2.81 Above high normal Acetone/keton e [facility]EXT ([facility]) ID Date Data Source [id number] 03/22/2020 08:15:00 AM [facility] Name Value Range Interpretation Code Description Data Kaye rce(s) Supporting Document(s) glucose, fasting 147 mg/dL 70-100 Above high normal Glucose, Fas ting ROMAN ([facility]) blood urea nitrogen 11 mg/dL 7-18 Blood Urea Nitro gen ROMAN ([facility]) creatinine for GFR 1.10 mg/dL 0.55-1.30 Creatinine for GF R HEXT ([facility]) glomerular filtration rate > 60.0 >58 Glomerula r Filtration Rate ROMAN ([facility]) sodium level 139 mEq/L 136-145 Sodium Level ROMAN (No [facility]) potassium serum 3.4 mEq/L 3.5-5.1 Below low normal Potassium Seru m HEXT ([facility]) chloride level 107 mEq/L 98-107 Chloride Level HEXT ([facility]) carbon dioxide level 22 mEq/L 21-32 Carbon Dioxide Level HEXT ([facility]) anion gap 10 mEq/L 8-16 Anion Gap HEXT ([facility]) calcium level 8.4 mg/dL 8.5-10.1 Below low normal Calcium Level AT [facility]) ALT/SGPT 14 U/L 12-78 ALT/SGPT [facility]EXT ([facility]) AST/SGOT 10 U/L 7-37 AST/SGOT [facility]EXT ([facility]) alkaline phosphatase 54 U/L 45-117 Alkaline Phosph atase HEXT ([facility]) bilirubin,total 0.6 mg/dL 0.2-1.0 Bilirubin,total [facility] ([facility]) total protein 5.8 gm/dL 6.4-8.2 Below low normal Total Protein AT [facility]) albumin 3.1 gm/dL 3.2-5.2 Below low normal Albumin HEXT ( [facility]) albumin/globulin ratio 1.2-2.2 Below low normal Albumin /globulin Ratio HEXT ([facility]) ID Date Data Source [id number] 03/22/2020 08:15:00 AM EST [facility]) Name Value Range Interpretation Code Description Data Kaye rce(s) Supporting Document(s) red blood count 3.24 10 4.00-5.40 Below low normal Red Blood Coun t HEXT ([facility]) white blood count 5.1 10 4.0-10.0 White Blood Count [facility] ([facility]) hemoglobin 8.9 g/dL 12.0-15.5 Below low normal Hemoglobin HEXT ( [facility]) hematocrit 27.2 % 36.0-47.0 Below low normal Hematocrit HEXT ( [facility]) mean corpuscular volume 84.0 fL 80.0-96.0 Mean Corpusc ular Volume HEXT ([facility]) mean corpuscular hemoglobin 27.5 pg 27.0-33.0 Mean Cor puscular Hemoglobin HEXT ([facility]) mean corpuscular HGB conc 32.7 g/dL 32.0-36.5 Mean Corpu scular HGB Conc HEXT ([facility]) red cell distribution width 15.2 % 11.5-14.5 Above high no rmal Red Cell Distribution Width [facility]EXT ([facility]) platelet count, automated 214 10 150-450 Platelet C ount, Automated [facility] ([facility]) nucleated red blood cell % 0.0 % 0-0 Nucleated Red Blood Cell % [facility]EXT ([facility]) ID Date Data Source [id number] 03/22/2020 08:15:00 AM EST [facility]EXT ([facility]) Name Value Range Interpretation Code Description Data Kaye rce(s) Supporting Document(s) acetone/ketone 25.32 mg/dL <2.81 Above high normal Acetone/keton e [facility]EXT ([facility]) ID Date Data Source [id number] 03/22/2020 08:15:00 AM EST [facility] ([facility]) Name Value Range Interpretation Code Description Data Kaye rce(s) Supporting Document(s) glucose, fasting 147 mg/dL 70-100 Above high normal Glucose, Fas ting [facility]EXT ([facility]) blood urea nitrogen 11 mg/dL 7-18 Blood Urea Nitro gen [facility]EXT ([facility]) creatinine for GFR 1.10 mg/dL 0.55-1.30 Creatinine for GF R [facility]AN ([facility]) glomerular filtration rate > 60.0 >58 Glomerula r Filtration Rate ROMAN ([facility]) sodium level 139 mEq/L 136-145 Sodium Level ROMAN (No [facility]) potassium serum 3.4 mEq/L 3.5-5.1 Below low normal Potassium Seru m [facility]AN ([facility]) chloride level 107 mEq/L 98-107 Chloride Level [facility] ([facility]) carbon dioxide level 22 mEq/L 21-32 Carbon Dioxide Level [facility] ([facility]) anion gap 10 mEq/L 8-16 Anion Gap [facility] ([facility]) AST/SGOT 10 U/L 7-37 AST/SGOT [facility] ([facility]) calcium level 8.4 mg/dL 8.5-10.1 Below low normal Calcium Level AT [facility]) ALT/SGPT 14 U/L 12-78 ALT/SGPT [facility] ([facility]) alkaline phosphatase 54 U/L 45-117 Alkaline Phosph atase [facility]AN ([facility]) bilirubin,total 0.6 mg/dL 0.2-1.0 Bilirubin,total [facility] ([facility]) total protein 5.8 gm/dL 6.4-8.2 Below low normal Total Protein AT [facility]) albumin 3.1 gm/dL 3.2-5.2 Below low normal Albumin ROMAN ( [facility]) albumin/globulin ratio 1.2-2.2 Below low normal Albumin /globulin Ratio HEXT ([facility]) ID Date Data Source [id number] 03/22/2020 08:15:00 AM EST [facility]) Name Value Range Interpretation Code Description Data Kaye rce(s) Supporting Document(s) white blood count 5.1 10 4.0-10.0 White Blood Count [facility] ([facility]) red blood count 3.24 10 4.00-5.40 Below low normal Red Blood Coun t [facility]EXT ([facility]) hemoglobin 8.9 g/dL 12.0-15.5 Below low normal Hemoglobin HEXT ( [facility]) hematocrit 27.2 % 36.0-47.0 Below low normal Hematocrit HEXT ( [facility]) mean corpuscular volume 84.0 fL 80.0-96.0 Mean Corpusc ular Volume ROMAN ([facility]) mean corpuscular hemoglobin 27.5 pg 27.0-33.0 Mean Cor puscular Hemoglobin ROMAN ([facility]) mean corpuscular HGB conc 32.7 g/dL 32.0-36.5 Mean Corpu scular HGB Conc [facility]EXT ([facility]) red cell distribution width 15.2 % 11.5-14.5 Above high no rmal Red Cell Distribution Width [facility]EXT ([facility]) platelet count, automated 214 10 150-450 Platelet C ount, Automated [facility] ([facility]) nucleated red blood cell % 0.0 % 0-0 Nucleated Red Blood Cell % [facility]EXT ([facility]) ID Date Data Source [id number] 03/22/2020 08:15:00 AM EST [facility] ([facility]) Name Value Range Interpretation Code Description Data Kaye rce(s) Supporting Document(s) acetone/ketone 25.32 mg/dL <2.81 Above high normal Acetone/keton e [facility]EXT ([facility]) ID Date Data Source [id number] 03/22/2020 08:15:00 AM EST [facility]EXT ([facility]) Name Value Range Interpretation Code Description Data Kaye rce(s) Supporting Document(s) glucose, fasting 147 mg/dL 70-100 Above high normal Glucose, Fas ting [facility]EXT ([facility]) blood urea nitrogen 11 mg/dL 7-18 Blood Urea Nitro gen ROMAN ([facility]) creatinine for GFR 1.10 mg/dL 0.55-1.30 Creatinine for GF R HEXT ([facility]) glomerular filtration rate > 60.0 >58 Glomerula r Filtration Rate HEXT ([facility]) sodium level 139 mEq/L 136-145 Sodium Level ROMAN (No [facility]) potassium serum 3.4 mEq/L 3.5-5.1 Below low normal Potassium Seru m [facility]AN ([facility]) chloride level 107 mEq/L 98-107 Chloride Level ROMAN ([facility]) carbon dioxide level 22 mEq/L 21-32 Carbon Dioxide Level ROMAN ([facility]) anion gap 10 mEq/L 8-16 Anion Gap ROMAN ([facility]) calcium level 8.4 mg/dL 8.5-10.1 Below low normal Calcium Level AT [facility] ([facility]) AST/SGOT 10 U/L 7-37 AST/SGOT [facility] ([facility]) ALT/SGPT 14 U/L 12-78 ALT/SGPT [facility]AN ([facility]) alkaline phosphatase 54 U/L 45-117 Alkaline Phosph atase ROMAN ([facility]) bilirubin,total 0.6 mg/dL 0.2-1.0 Bilirubin,total [facility] ([facility]) total protein 5.8 gm/dL 6.4-8.2 Below low normal Total Protein AT [facility]) albumin 3.1 gm/dL 3.2-5.2 Below low normal Albumin ROMAN ( [facility]) albumin/globulin ratio 1.2-2.2 Below low normal Albumin /globulin Ratio ROMAN ([facility]) ID Date Data Source [id number] 03/22/2020 08:15:00 AM EST [facility] ([facility]) Name Value Range Interpretation Code Description Data Kaye rce(s) Supporting Document(s) white blood count 5.1 10 4.0-10.0 White Blood Count [facility] ([facility]) red blood count 3.24 10 4.00-5.40 Below low normal Red Blood Coun t ROMAN ([facility]) hemoglobin 8.9 g/dL 12.0-15.5 Below low normal Hemoglobin ROMAN ( [facility]) hematocrit 27.2 % 36.0-47.0 Below low normal Hematocrit ROMAN ( [facility]) mean corpuscular volume 84.0 fL 80.0-96.0 Mean Corpusc ular Volume ROMAN ([facility]) mean corpuscular hemoglobin 27.5 pg 27.0-33.0 Mean Cor puscular Hemoglobin HEXT ([facility]) mean corpuscular HGB conc 32.7 g/dL 32.0-36.5 Mean Corpu scular HGB Conc [facility]AN ([facility]) red cell distribution width 15.2 % 11.5-14.5 Above high no rmal Red Cell Distribution Width [facility]AN ([facility]) platelet count, automated 214 10 150-450 Platelet C ount, Automated [facility] ([facility]) nucleated red blood cell % 0.0 % 0-0 Nucleated Red Blood Cell % HEXT ([facility]) ID Date Data Source [id number] 03/22/2020 08:15:00 AM EST [facility] ([facility]) Name Value Range Interpretation Code Description Data Kaye rce(s) Supporting Document(s) acetone/ketone 25.32 mg/dL <2.81 Above high normal Acetone/keton e [facility]EXT ([facility]) ID Date Data Source [id number] 03/22/2020 08:15:00 AM EST [facility]) Name Value Range Interpretation Code Description Data Kaye rce(s) Supporting Document(s) glucose, fasting 147 mg/dL 70-100 Above high normal Glucose, Fas ting ROMAN ([facility]) blood urea nitrogen 11 mg/dL 7-18 Blood Urea Nitro gen ROMAN ([facility]) creatinine for GFR 1.10 mg/dL 0.55-1.30 Creatinine for GF R [facility]EXT ([facility]) glomerular filtration rate > 60.0 >58 Glomerula r Filtration Rate HEXT ([facility]) sodium level 139 mEq/L 136-145 Sodium Level ROMAN (No [facility]) potassium serum 3.4 mEq/L 3.5-5.1 Below low normal Potassium Seru m ROMAN ([facility]) chloride level 107 mEq/L 98-107 Chloride Level [facility] ([facility]) carbon dioxide level 22 mEq/L 21-32 Carbon Dioxide Level ROMAN ([facility]) anion gap 10 mEq/L 8-16 Anion Gap ROMAN ([facility]) calcium level 8.4 mg/dL 8.5-10.1 Below low normal Calcium Level AT [facility] ([facility]) AST/SGOT 10 U/L 7-37 AST/SGOT [facility] ([facility]) ALT/SGPT 14 U/L 12-78 ALT/SGPT [facility]AN ([facility]) bilirubin,total 0.6 mg/dL 0.2-1.0 [facility] alkaline phosphatase 54 U/L 45-117 Alkaline Phosph atase ROMAN ([facility]) total protein 5.8 gm/dL 6.4-8.2 Below low normal Total Protein AT [facility] ([facility]) albumin 3.1 gm/dL 3.2-5.2 Below low normal Albumin ROMAN ( [facility]) albumin/globulin ratio 1.2-2.2 Below low normal Albumin /globulin Ratio HEXT ([facility]) ID Date Data Source [id number] 03/22/2020 08:15:00 AM EST HEXT ([facility]) Name Value Range Interpretation Code Description Data Kaye rce(s) Supporting Document(s) white blood count 5.1 10 4.0-10.0 White Blood Count ROMAN ([facility]) red blood count 3.24 10 4.00-5.40 Below low normal Red Blood Coun t ROMAN ([facility]) hemoglobin 8.9 g/dL 12.0-15.5 Below low normal Hemoglobin ROMAN ( [facility]) hematocrit 27.2 % 36.0-47.0 Below low normal Hematocrit ROMAN ( [facility]) mean corpuscular volume 84.0 fL 80.0-96.0 Mean Corpusc ular Volume ROMAN ([facility]) mean corpuscular hemoglobin 27.5 pg 27.0-33.0 Mean Cor puscular Hemoglobin ROMAN ([facility]) mean corpuscular HGB conc 32.7 g/dL 32.0-36.5 Mean Corpu scular HGB Conc [facility]AN ([facility]) red cell distribution width 15.2 % 11.5-14.5 Above high no rmal Red Cell Distribution Width RMOAN ([facility]) platelet count, automated 214 10 150-450 Platelet C ount, Automated ROMAN ([facility]) nucleated red blood cell % 0.0 % 0-0 Nucleated Red Blood Cell % ROMAN ([facility]) ID Date Data Source [id number] 03/22/2020 07:45:00 AM EST [facility]EXT ([facility]) Name Value Range Interpretation Code Description Data Kaye rce(s) Supporting Document(s) bedside glucose 99 mg/dL 70-105 Bedside Glucose ATHE ([facility]) ID Date Data Source [id number] 03/22/2020 07:45:00 AM EST [facility]) Name Value Range Interpretation Code Description Data Kaye rce(s) Supporting Document(s) bedside glucose 99 mg/dL 70-105 Bedside Glucose ATHE ([facility]) ID Date Data Source [id number] 03/22/2020 07:45:00 AM EST ROMAN ([facility]) Name Value Range Interpretation Code Description Data Kaye rce(s) Supporting Document(s) bedside glucose 99 mg/dL 70-105 Bedside Glucose ATHE NA ([facility]) ID Date Data Source [id number] 03/22/2020 07:45:00 [facility] Name Value Range Interpretation Code Description Data Kaye rce(s) Supporting Document(s) bedside glucose 99 mg/dL 70-105 Bedside Glucose ATHE NA ([facility]) ID Date Data Source [id number] 03/22/2020 07:45:00 AM EST ROMAN ([facility]) Name Value Range Interpretation Code Description Data Kaye rce(s) Supporting Document(s) bedside glucose 99 mg/dL 70-105 Bedside Glucose ATHVanessa ORDOÑEZ ([facility]) ID Date Data Source [id number] 03/22/2020 07:45:00 AM EST ROMAN ([facility]) Name Value Range Interpretation Code Description Data Kaye rce(s) Supporting Document(s) bedside glucose 99 mg/dL 70-105 Bedside Glucose ATHVanessa ORDOÑEZ ([facility]) ID Date Data Source [id number] 03/22/2020 06:55:00 AM EST ROMAN ([facility]) Name Value Range Interpretation Code Description Data Kaye rce(s) Supporting Document(s) bedside glucose 45 mg/dL 70-105 Below low normal Bedside Glucos e ROMAN ([facility]) ID Date Data Source [id number] 03/22/2020 06:55:00 AM EST ROMAN ([facility]) Name Value Range Interpretation Code Description Data Kaye rce(s) Supporting Document(s) bedside glucose 45 mg/dL 70-105 Below low normal Bedside Glucos e ROMAN ([facility]) ID Date Data Source [id number] 03/22/2020 06:55:00 AM EST ROMAN ([facility]) Name Value Range Interpretation Code Description Data Kaye rce(s) Supporting Document(s) bedside glucose 45 mg/dL 70-105 Below low normal Bedside Glucos e ROMAN ([facility]) ID Date Data Source [id number] 03/22/2020 06:55:00 AM EST ROMAN ([facility]) Name Value Range Interpretation Code Description Data Kaye rce(s) Supporting Document(s) bedside glucose 45 mg/dL 70-105 Below low normal Bedside Glucos e ROMAN ([facility]) ID Date Data Source [id number] 03/22/2020 06:55:00 AM EST [facility]AN ([facility]) Name Value Range Interpretation Code Description Data Kaye rce(s) Supporting Document(s) bedside glucose 45 mg/dL 70-105 Below low normal Bedside Glucos e ROMAN ([facility]) ID Date Data Source [id number] 03/22/2020 06:55:00 AM EST [facility]AN ([facility]) Name Value Range Interpretation Code Description Data Kaye rce(s) Supporting Document(s) bedside glucose 45 mg/dL 70-105 Below low normal Bedside Glucos e ROMAN ([facility]) ID Date Data Source [id number] 03/21/2020 10:31:00 PM EST ROMAN ([facility]) Name Value Range Interpretation Code Description Data Kaye rce(s) Supporting Document(s) bedside glucose 104 mg/dL 70-105 Bedside Glucose ATHE NA ([facility]) ID Date Data Source [id number] 03/21/2020 10:31:00 PM EST ROMAN ([facility]) Name Value Range Interpretation Code Description Data Kaye rce(s) Supporting Document(s) bedside glucose 104 mg/dL 70-105 Bedside Glucose ATHE NA ([facility]) ID Date Data Source [id number] 03/21/2020 10:31:00 PM EST ROMAN ([facility]) Name Value Range Interpretation Code Description Data Kaye rce(s) Supporting Document(s) bedside glucose 104 mg/dL 70-105 Bedside Glucose ATHE NA ([facility]) ID Date Data Source [id number] 03/21/2020 10:31:00 PM EST ROMAN ([facility]) Name Value Range Interpretation Code Description Data Kaye rce(s) Supporting Document(s) bedside glucose 104 mg/dL 70-105 Bedside Glucose ATHVanessa ORDOÑEZ ([facility]) ID Date Data Source [id number] 03/21/2020 10:31:00 PM EST ROMAN ([facility]) Name Value Range Interpretation Code Description Data Kaye rce(s) Supporting Document(s) bedside glucose 104 mg/dL 70-105 Bedside Glucose ATHVanessa ORDOÑEZ ([facility]) ID Date Data Source [id number] 03/21/2020 10:31:00 PM EST [facility]AN ([facility]) Name Value Range Interpretation Code Description Data Kaye rce(s) Supporting Document(s) bedside glucose 104 mg/dL 70-105 Bedside Glucose ATHVanessa ORDOÑEZ ([facility]) ID Date Data Source [id number] 03/21/2020 09:57:00 PM EST ROMAN ([facility]) Name Value Range Interpretation Code Description Data Kaye rce(s) Supporting Document(s) bedside glucose 39 mg/dL 70-105 Below low normal Bedside Glucos e ROMAN ([facility]) ID Date Data Source [id number] 03/21/2020 09:57:00 PM EST ROMAN ([facility]) Name Value Range Interpretation Code Description Data Kaye rce(s) Supporting Document(s) bedside glucose 39 mg/dL 70-105 Below low normal Bedside Glucos e ROMAN ([facility]) ID Date Data Source [id number] 03/21/2020 09:57:00 PM EST [facility]AN ([facility]) Name Value Range Interpretation Code Description Data Kaye rce(s) Supporting Document(s) bedside glucose 39 mg/dL 70-105 Below low normal Bedside Glucos e ROMAN ([facility]) ID Date Data Source [id number] 03/21/2020 09:57:00 PM EST [facility]AN ([facility]) Name Value Range Interpretation Code Description Data Kaye rce(s) Supporting Document(s) bedside glucose 39 mg/dL 70-105 Below low normal Bedside Glucos e ROMAN ([facility]) ID Date Data Source [id number] 03/21/2020 09:57:00 PM EST [facility]AN ([facility]) Name Value Range Interpretation Code Description Data Kaye rce(s) Supporting Document(s) bedside glucose 39 mg/dL 70-105 Below low normal Bedside Glucos e ROMAN ([facility]) ID Date Data Source [id number] 03/21/2020 09:57:00 PM EST [facility]AN ([facility]) Name Value Range Interpretation Code Description Data Kaye rce(s) Supporting Document(s) bedside glucose 39 mg/dL 70-105 Below low normal Bedside Glucos e ROMAN ([facility]) ID Date Data Source [id number] 03/21/2020 09:18:00 PM EST [facility]AN ([facility]) Name Value Range Interpretation Code Description Data Kaye rce(s) Supporting Document(s) bedside glucose 42 mg/dL 70-105 Below low normal Bedside Glucos e ROMAN ([facility]) ID Date Data Source [id number] 03/21/2020 09:18:00 PM EST ROMAN ([facility]) Name Value Range Interpretation Code Description Data Kaye rce(s) Supporting Document(s) bedside glucose 42 mg/dL 70-105 Below low normal Bedside Glucos e ROMAN ([facility]) ID Date Data Source [id number] 03/21/2020 09:18:00 PM [facility] Name Value Range Interpretation Code Description Data Kaye rce(s) Supporting Document(s) bedside glucose 42 mg/dL 70-105 Below low normal Bedside Glucos e ROMAN ([facility]) ID Date Data Source [id number] 03/21/2020 09:18:00 PM EST ROMAN ([facility]) Name Value Range Interpretation Code Description Data Kaye rce(s) Supporting Document(s) bedside glucose 42 mg/dL 70-105 Below low normal Bedside Glucos e ROMAN ([facility]) ID Date Data Source [id number] 03/21/2020 09:18:00 PM EST [facility]AN ([facility]) Name Value Range Interpretation Code Description Data Kaye rce(s) Supporting Document(s) bedside glucose 42 mg/dL 70-105 Below low normal Bedside Glucos e ROMAN ([facility]) ID Date Data Source [id number] 03/21/2020 09:18:00 PM EST [facility]AN ([facility]) Name Value Range Interpretation Code Description Data Kaye rce(s) Supporting Document(s) bedside glucose 42 mg/dL 70-105 Below low normal Bedside Glucos e ROMAN ([facility]) ID Date Data Source [id number] 03/21/2020 05:46:00 PM EST [facility]AN ([facility]) Name Value Range Interpretation Code Description Data Kaye rce(s) Supporting Document(s) bedside glucose 110 mg/dL 70-105 Above high normal Bedside Gluco se ROMAN ([facility]) ID Date Data Source [id number] 03/21/2020 05:46:00 PM EST [facility]AN ([facility]) Name Value Range Interpretation Code Description Data Kaye rce(s) Supporting Document(s) bedside glucose 110 mg/dL 70-105 Above high normal Bedside Gluco se ROMAN ([facility]) ID Date Data Source [id number] 03/21/2020 05:46:00 PM EST [facility]AN ([facility]) Name Value Range Interpretation Code Description Data Kaye rce(s) Supporting Document(s) bedside glucose 110 mg/dL 70-105 Above high normal Bedside Gluco se ROMAN ([facility]) ID Date Data Source [id number] 03/21/2020 05:46:00 PM EST ROMAN ([facility]) Name Value Range Interpretation Code Description Data Kaye rce(s) Supporting Document(s) bedside glucose 110 mg/dL 70-105 Above high normal Bedside Gluco se ROMAN ([facility]) ID Date Data Source [id number] 03/21/2020 05:46:00 PM EST ROMAN ([facility]) Name Value Range Interpretation Code Description Data Kaye rce(s) Supporting Document(s) bedside glucose 110 mg/dL 70-105 Above high normal Bedside Gluco se ROMAN ([facility]) ID Date Data Source [id number] 03/21/2020 05:46:00 PM EST ROMAN ([facility]) Name Value Range Interpretation Code Description Data Kaye rce(s) Supporting Document(s) bedside glucose 110 mg/dL 70-105 Above high normal Bedside Gluco se ROMAN ([facility]) ID Date Data Source [id number] 03/21/2020 05:40:00 PM EST ROMAN ([facility]) Name Value Range Interpretation Code Description Data Kaye rce(s) Supporting Document(s) bedside glucose confirmation 117 mg/dL less than 200 Bedside Glucose Confirmation [facility]) ID Date Data Source [id number] 03/21/2020 05:40:00 PM EST ROMAN ([facility]) Name Value Range Interpretation Code Description Data Kaye rce(s) Supporting Document(s) bedside glucose confirmation 117 mg/dL less than 200 Bedside Glucose Confirmation ROMAN ([facility]) ID Date Data Source [id number] 03/21/2020 05:40:00 PM EST ROMAN ([facility]) Name Value Range Interpretation Code Description Data Kaye rce(s) Supporting Document(s) bedside glucose confirmation 117 mg/dL less than 200 Bedside Glucose Confirmation ROMAN ([facility]) ID Date Data Source [id number] 03/21/2020 05:40:00 PM EST [facility]AN ([facility]) Name Value Range Interpretation Code Description Data Kaye rce(s) Supporting Document(s) bedside glucose confirmation 117 mg/dL less than 200 Bedside Glucose Confirmation [facility]EXT ([facility]) ID Date Data Source [id number] 03/21/2020 05:40:00 PM EST [facility]AN ([facility]) Name Value Range Interpretation Code Description Data Kaye rce(s) Supporting Document(s) bedside glucose confirmation 117 mg/dL less than 200 Bedside Glucose Confirmation [facility] ([facility]) ID Date Data Source [id number] 03/21/2020 05:40:00 PM [facility] Name Value Range Interpretation Code Description Data Kaye rce(s) Supporting Document(s) bedside glucose confirmation 117 mg/dL less than 200 Bed[facility] Date Data Source [id number] 03/21/2020 05:22:00 PM EST [facility] ([facility]) Name Value Range Interpretation Code Description Data Kaye rce(s) Supporting Document(s) bedside glucose 26 mg/dL 70-105 Below low normal [facility] Date Data Source [id number] 03/21/2020 05:22:00 PM EST [facility]AN ([facility]) Name Value Range Interpretation Code Description Data Kaye rce(s) Supporting Document(s) bedside glucose 26 mg/dL 70-105 Below low normal Bedside Glucos e ROMAN ([facility]) ID Date Data Source [id number] 03/21/2020 05:22:00 PM EST [facility]AN ([facility]) Name Value Range Interpretation Code Description Data Kaye rce(s) Supporting Document(s) bedside glucose 26 mg/dL 70-105 Below low normal Bedside Glucos e ROMAN ([facility]) ID Date Data Source [id number] 03/21/2020 05:22:00 PM EST [facility]AN ([facility]) Name Value Range Interpretation Code Description Data Kaye rce(s) Supporting Document(s) bedside glucose 26 mg/dL 70-105 Below low normal Bedside Glucos e ROMAN ([facility]) ID Date Data Source [id number] 03/21/2020 05:22:00 PM EST [facility]AN ([facility]) Name Value Range Interpretation Code Description Data Kaye rce(s) Supporting Document(s) bedside glucose 26 mg/dL 70-105 Below low normal Bedside Glucos e ROMAN ([facility]) ID Date Data Source [id number] 03/21/2020 05:22:00 PM EST [facility] ([facility]) Name Value Range Interpretation Code Description Data Kaye rce(s) Supporting Document(s) bedside glucose 26 mg/dL 70-105 Below low normal Bedside Glucos e ROMAN ([facility]) ID Date Data Source [id number] 03/21/2020 05:13:00 PM EST [facility] ([facility]) Name Value Range Interpretation Code Description Data Kaye rce(s) Supporting Document(s) bedside glucose 37 mg/dL 70-105 Below low normal Bedside Glucos e ROMAN ([facility]) ID Date Data Source [id number] 03/21/2020 05:13:00 PM EST [facility]AN ([facility]) Name Value Range Interpretation Code Description Data Kaye rce(s) Supporting Document(s) bedside glucose 37 mg/dL 70-105 Below low normal Bedside Glucos e ROMAN ([facility]) ID Date Data Source [id number] 03/21/2020 05:13:00 PM EST ROMAN ([facility]) Name Value Range Interpretation Code Description Data Kaye rce(s) Supporting Document(s) bedside glucose 37 mg/dL 70-105 Below low normal Bedside Glucos e ROMAN ([facility]) ID Date Data Source [id number] 03/21/2020 05:13:00 PM EST [facility]AN ([facility]) Name Value Range Interpretation Code Description Data Kaye rce(s) Supporting Document(s) bedside glucose 37 mg/dL 70-105 Below low normal Bedside Glucos e ROMAN ([facility]) ID Date Data Source [id number] 03/21/2020 05:13:00 PM EST [facility]AN ([facility]) Name Value Range Interpretation Code Description Data Kaye rce(s) Supporting Document(s) bedside glucose 37 mg/dL 70-105 Below low normal Bedside Glucos e [facility]AN ([facility]) ID Date Data Source [id number] 03/21/2020 05:13:00 PM EST [facility] ([facility]) Name Value Range Interpretation Code Description Data Kaye rce(s) Supporting Document(s) bedside glucose 37 mg/dL 70-105 Below low normal Bedside Glucos e [facility]AN ([facility]) ID Date Data Source [id number] 03/21/2020 05:05:00 PM EST [facility] ([facility]) Name Value Range Interpretation Code Description Data Kaye rce(s) Supporting Document(s) bedside glucose 32 mg/dL 70-105 Below low normal Bedside Glucos e [facility]AN ([facility]) ID Date Data Source [id number] 03/21/2020 05:05:00 PM EST [facility] ([facility]) Name Value Range Interpretation Code Description Data Kaye rce(s) Supporting Document(s) bedside glucose 32 mg/dL 70-105 Below low normal Bedside Glucos e [facility]AN ([facility]) ID Date Data Source [id number] 03/21/2020 05:05:00 PM EST [facility] ([facility]) Name Value Range Interpretation Code Description Data Kaye rce(s) Supporting Document(s) bedside glucose 32 mg/dL 70-105 Below low normal Bedside Glucos e [facility]AN ([facility]) ID Date Data Source [id number] 03/21/2020 05:05:00 PM EST [facility] ([facility]) Name Value Range Interpretation Code Description Data Kaye rce(s) Supporting Document(s) bedside glucose 32 mg/dL 70-105 Below low normal Bedside Glucos e [facility]AN ([facility]) ID Date Data Source [id number] 03/21/2020 05:05:00 PM EST [facility] ([facility]) Name Value Range Interpretation Code Description Data Kaye rce(s) Supporting Document(s) bedside glucose 32 mg/dL 70-105 Below low normal Bedside Glucos e [facility]AN ([facility]) ID Date Data Source [id number] 03/21/2020 05:05:00 PM EST [facility] ([facility]) Name Value Range Interpretation Code Description Data Kaye rce(s) Supporting Document(s) bedside glucose 32 mg/dL 70-105 Below low normal Bedside Glucos e ROMAN ([facility]) ID Date Data Source [id number] 03/21/2020 12:13:00 PM EST [facility] ([facility]) Name Value Range Interpretation Code Description Data Kaye rce(s) Supporting Document(s) bedside glucose 157 mg/dL 70-105 Above high normal Bedside Gluco se ROMAN ([facility]) ID Date Data Source [id number] 03/21/2020 12:13:00 PM EST [facility] ([facility]) Name Value Range Interpretation Code Description Data Kaye rce(s) Supporting Document(s) bedside glucose 157 mg/dL 70-105 Above high normal Bedside Gluco se ROMAN ([facility]) ID Date Data Source [id number] 03/21/2020 12:13:00 PM EST [facility]AN ([facility]) Name Value Range Interpretation Code Description Data Kaye rce(s) Supporting Document(s) bedside glucose 157 mg/dL 70-105 Above high normal Bedside Gluco se ROMAN ([facility]) ID Date Data Source [id number] 03/21/2020 12:13:00 PM EST [facility]AN ([facility]) Name Value Range Interpretation Code Description Data Kaye rce(s) Supporting Document(s) bedside glucose 157 mg/dL 70-105 Above high normal Bedside Gluco se [facility]AN ([facility]) ID Date Data Source [id number] 03/21/2020 12:13:00 PM EST [facility] ([facility]) Name Value Range Interpretation Code Description Data Kaye rce(s) Supporting Document(s) bedside glucose 157 mg/dL 70-105 Above high normal Bedside Gluco se [facility]AN ([facility]) ID Date Data Source [id number] 03/21/2020 12:13:00 PM EST [facility] ([facility]) Name Value Range Interpretation Code Description Data Kaye rce(s) Supporting Document(s) bedside glucose 157 mg/dL 70-105 Above high normal Bedside Gluco se [facility]AN ([facility]) ID Date Data Source [id number] 03/21/2020 06:05:00 AM EST [facility]AN ([facility]) Name Value Range Interpretation Code Description Data Kaye rce(s) Supporting Document(s) acetone/ketone > 46.00 <2.81 Above high normal Acetone/ketone [facility] ([facility]) ID Date Data Source [id number] 03/21/2020 06:05:00 AM EST [facility]AN ([facility]) Name Value Range Interpretation Code Description Data Kaye rce(s) Supporting Document(s) glucose, fasting 380 mg/dL 70-100 Above high normal Glucose, Fas ting ROMAN ([facility]) blood urea nitrogen 17 mg/dL 7-18 Blood Urea Nitro gen ROMAN ([facility]) creatinine for GFR 1.43 mg/dL 0.55-1.30 Above high normal Creatinine for GFR [facility] ([facility]) glomerular filtration rate >58 Below low normal Beata merular Filtration Rate ROMAN ([facility]) potassium serum 4.3 mEq/L 3.5-5.1 Potassium Serum ATHE NA ([facility]) sodium level 133 mEq/L 136-145 Below low normal Sodium Level ATHE NA ([facility]) chloride level 104 mEq/L 98-107 Chloride Level ROM[facility] ([facility]) carbon dioxide level 14 mEq/L 21-32 Below low normal Carbon Di oxide Level ROMAN ([facility]) anion gap 15 mEq/L 8-16 Anion Gap [facility] ([facility]) calcium level 8.8 mg/dL 8.5-10.1 Calcium Level ROMAN ( [facility]) AST/SGOT 9 U/L 7-37 AST/SGOT [facility] ([facility]) alkaline phosphatase 68 U/L 45-117 Alkaline Phosph atase [facility] ([facility]) ALT/SGPT 14 U/L 12-78 ALT/SGPT [facility] ([facility]) bilirubin,total 0.5 mg/dL 0.2-1.0 Bilirubin,total ATHE ([facility]) total protein 6.4 gm/dL 6.4-8.2 Total Protein ROMAN ( [facility]) albumin 3.3 gm/dL 3.2-5.2 Albumin [facility] ([facility]) albumin/globulin ratio 1.2-2.2 Below low normal Albumin /globulin Ratio ROMAN ([facility]) ID Date Data Source [id number] 03/21/2020 06:05:00 AM EST [facility]AN ([facility]) Name Value Range Interpretation Code Description Data Kaye rce(s) Supporting Document(s) acetone/ketone > 46.00 <2.81 Above high normal Acetone/ketone [facility] ([facility]) ID Date Data Source [id number] 03/21/2020 06:05:00 AM EST [facility]AN ([facility]) Name Value Range Interpretation Code Description Data Kaye rce(s) Supporting Document(s) glucose, fasting 380 mg/dL 70-100 Above high normal Glucose, Fas ting ROMAN ([facility]) blood urea nitrogen 17 mg/dL 7-18 Blood Urea Nitro gen ROMAN ([facility]) creatinine for GFR 1.43 mg/dL 0.55-1.30 Above high normal Creatinine for GFR ROMAN ([facility]) glomerular filtration rate >58 Below low normal Beata merular Filtration Rate ROMAN ([facility]) sodium level 133 mEq/L 136-145 Below low normal Sodium Level ATHE NA ([facility]) potassium serum 4.3 mEq/L 3.5-5.1 Potassium Serum ATHE NA ([facility]) chloride level 104 mEq/L 98-107 Chloride Level ROMAN ([facility]) carbon dioxide level 14 mEq/L 21-32 Below low normal Carbon Di oxide Level ROMAN ([facility]) anion gap 15 mEq/L 8-16 Anion Gap ROMAN ([facility]) calcium level 8.8 mg/dL 8.5-10.1 Calcium Level ROMAN ( [facility]) AST/SGOT 9 U/L 7-37 AST/SGOT ROMAN ([facility]) ALT/SGPT 14 U/L 12-78 ALT/SGPT ROMAN ([facility]) alkaline phosphatase 68 U/L 45-117 Alkaline Phosph atase ROMAN ([facility]) bilirubin,total 0.5 mg/dL 0.2-1.0 Bilirubin,total ATHE NA ([facility]) total protein 6.4 gm/dL 6.4-8.2 Total Protein ROMAN ( [facility]) albumin 3.3 gm/dL 3.2-5.2 Albumin ROMAN ([facility]) albumin/globulin ratio 1.2-2.2 Below low normal Albumin /globulin Ratio ROMAN ([facility]) ID Date Data Source [id number] 03/21/2020 06:05:00 AM EST ROMAN ([facility]) Name Value Range Interpretation Code Description Data Kaye rce(s) Supporting Document(s) acetone/ketone > 46.00 <2.81 Above high normal Acetone/ketone ROMAN ([facility]) ID Date Data Source [id number] 03/21/2020 06:05:00 AM EST ROMAN ([facility]) Name Value Range Interpretation Code Description Data Kaye rce(s) Supporting Document(s) glucose, fasting 380 mg/dL 70-100 Above high normal Glucose, Fas ting ROMAN ([facility]) blood urea nitrogen 17 mg/dL 7-18 Blood Urea Nitro gen ROMAN ([facility]) creatinine for GFR 1.43 mg/dL 0.55-1.30 Above high normal Creatinine for GFR ROMAN ([facility]) glomerular filtration rate >58 Below low normal Beata merular Filtration Rate ROMAN ([facility]) sodium level 133 mEq/L 136-145 Below low normal Sodium Level ATHE NA ([facility]) potassium serum 4.3 mEq/L 3.5-5.1 Potassium Serum ATHE NA ([facility]) chloride level 104 mEq/L 98-107 Chloride Level ROMAN ([facility]) carbon dioxide level 14 mEq/L 21-32 Below low normal Carbon Di oxide Level ROMAN ([facility]) anion gap 15 mEq/L 8-16 Anion Gap ROMAN ([facility]) calcium level 8.8 mg/dL 8.5-10.1 Calcium Level ROMAN ( [facility]) AST/SGOT 9 U/L 7-37 AST/SGOT ROMAN ([facility]) ALT/SGPT 14 U/L 12-78 ALT/SGPT ROMAN ([facility]) bilirubin,total 0.5 mg/dL 0.2-1.0 Bilirubin,total ATHE ([facility]) alkaline phosphatase 68 U/L 45-117 Alkaline Phosph atase ROMAN ([facility]) total protein 6.4 gm/dL 6.4-8.2 Total Protein ROMAN ( [facility]) albumin 3.3 gm/dL 3.2-5.2 Albumin ROMAN ([facility]) albumin/globulin ratio 1.2-2.2 Below low normal Albumin /globulin Ratio ROMAN ([facility]) ID Date Data Source [id number] 03/21/2020 06:05:00 AM EST ROMAN ([facility]) Name Value Range Interpretation Code Description Data Kaye rce(s) Supporting Document(s) acetone/ketone > 46.00 <2.81 Above high normal Acetone/ketone ROMAN ([facility]) ID Date Data Source [id number] 03/21/2020 06:05:00 AM EST ROMAN ([facility]) Name Value Range Interpretation Code Description Data Kaye rce(s) Supporting Document(s) glucose, fasting 380 mg/dL 70-100 Above high normal Glucose, Fas ting ROMAN ([facility]) blood urea nitrogen 17 mg/dL 7-18 Blood Urea Nitro gen ROMAN ([facility]) creatinine for GFR 1.43 mg/dL 0.55-1.30 Above high normal Creatinine for GFR ROMAN ([facility]) glomerular filtration rate >58 Below low normal Beata merular Filtration Rate ROMAN ([facility]) sodium level 133 mEq/L 136-145 Below low normal Sodium Level ATHE NA ([facility]) chloride level 104 mEq/L 98-107 Chloride Level ROMAN ([facility]) potassium serum 4.3 mEq/L 3.5-5.1 Potassium Serum ATHE NA ([facility]) carbon dioxide level 14 mEq/L 21-32 Below low normal Carbon Di oxide Level ROMAN ([facility]) anion gap 15 mEq/L 8-16 Anion Gap ROMAN ([facility]) calcium level 8.8 mg/dL 8.5-10.1 Calcium Level ROMAN ( [facility]) AST/SGOT 9 U/L 7-37 AST/SGOT ROMAN ([facility]) ALT/SGPT 14 U/L 12-78 ALT/SGPT ROMAN ([facility]) alkaline phosphatase 68 U/L 45-117 Alkaline Phosph atase ROMAN ([facility]) bilirubin,total 0.5 mg/dL 0.2-1.0 Bilirubin,total ATHE ([facility]) total protein 6.4 gm/dL 6.4-8.2 Total Protein ROMAN ( [facility]) albumin 3.3 gm/dL 3.2-5.2 Albumin ROMAN ([facility]) albumin/globulin ratio 1.2-2.2 Below low normal Albumin /globulin Ratio ROMAN ([facility]) ID Date Data Source [id number] 03/21/2020 06:05:00 AM EST ROMAN ([facility]) Name Value Range Interpretation Code Description Data Kaye rce(s) Supporting Document(s) acetone/ketone > 46.00 <2.81 Above high normal Acetone/ketone ROMAN ([facility]) ID Date Data Source [id number] 03/21/2020 06:05:00 AM EST ROMAN ([facility]) Name Value Range Interpretation Code Description Data Kaye rce(s) Supporting Document(s) glucose, fasting 380 mg/dL 70-100 Above high normal Glucose, Fas ting ROMAN ([facility]) blood urea nitrogen 17 mg/dL 7-18 Blood Urea Nitro gen ROMAN ([facility]) creatinine for GFR 1.43 mg/dL 0.55-1.30 Above high normal Creatinine for GFR ROMAN ([facility]) glomerular filtration rate >58 Below low normal Beata merular Filtration Rate ROMAN ([facility]) sodium level 133 mEq/L 136-145 Below low normal Sodium Level ATHE ([facility]) potassium serum 4.3 mEq/L 3.5-5.1 Potassium Serum ATHE ([facility]) chloride level 104 mEq/L 98-107 Chloride Level ROMAN ([facility]) carbon dioxide level 14 mEq/L 21-32 Below low normal Carbon Di oxide Level ROMAN ([facility]) anion gap 15 mEq/L 8-16 Anion Gap ROMAN ([facility]) calcium level 8.8 mg/dL 8.5-10.1 Calcium Level ROMAN ( [facility]) AST/SGOT 9 U/L 7-37 AST/SGOT ROMAN ([facility]) ALT/SGPT 14 U/L 12-78 ALT/SGPT ROMAN ([facility]) alkaline phosphatase 68 U/L 45-117 Alkaline Phosph atase ROMAN ([facility]) bilirubin,total 0.5 mg/dL 0.2-1.0 Bilirubin,total ATHE NA ([facility]) total protein 6.4 gm/dL 6.4-8.2 Total Protein ROMAN ( [facility]) albumin 3.3 gm/dL 3.2-5.2 Albumin ROMAN ([facility]) albumin/globulin ratio 1.2-2.2 Below low normal Albumin /globulin Ratio ROMAN ([facility]) ID Date Data Source [id number] 03/21/2020 06:05:00 AM EST ROMAN ([facility]) Name Value Range Interpretation Code Description Data Kaye rce(s) Supporting Document(s) acetone/ketone > 46.00 <2.81 Above high normal Acetone/ketone HEXT ([facility]) ID Date Data Source [id number] 03/21/2020 06:05:00 AM EST ROMAN ([facility]) Name Value Range Interpretation Code Description Data Kaye rce(s) Supporting Document(s) glucose, fasting 380 mg/dL 70-100 Above high normal Glucose, Fas ting ROMAN ([facility]) blood urea nitrogen 17 mg/dL 7-18 Blood Urea Nitro gen ROMAN ([facility]) creatinine for GFR 1.43 mg/dL 0.55-1.30 Above high normal Creatinine for GFR ROMAN ([facility]) glomerular filtration rate >58 Below low normal Beata merular Filtration Rate ROMAN ([facility]) sodium level 133 mEq/L 136-145 Below low normal Sodium Level ATHE ([facility]) potassium serum 4.3 mEq/L 3.5-5.1 Potassium Serum ATHE ([facility]) chloride level 104 mEq/L 98-107 Chloride Level HEXT ([facility]) carbon dioxide level 14 mEq/L 21-32 Below low normal Carbon Di oxide Level ROMAN ([facility]) anion gap 15 mEq/L 8-16 Anion Gap ROMAN ([facility]) calcium level 8.8 mg/dL 8.5-10.1 Calcium Level ROMAN ( [facility]) AST/SGOT 9 U/L 7-37 AST/SGOT ROMAN ([facility]) ALT/SGPT 14 U/L 12-78 ALT/SGPT ROMAN ([facility]) alkaline phosphatase 68 U/L 45-117 Alkaline Phosph atase ROMAN ([facility]) bilirubin,total 0.5 mg/dL 0.2-1.0 Bilirubin,total ATHE ([facility]) albumin 3.3 gm/dL 3.2-5.2 Albumin HEXT ([facility]) total protein 6.4 gm/dL 6.4-8.2 Total Protein ROMAN ( [facility]) albumin/globulin ratio 1.2-2.2 Below low normal Albumin /globulin Ratio ROMAN ([facility]) ID Date Data Source [id number] 03/20/2020 10:57:00 PM EST ROMAN ([facility]) Name Value Range Interpretation Code Description Data Kaye rce(s) Supporting Document(s) bedside glucose 204 mg/dL 70-105 Above high normal Bedside Gluco se ROMAN ([facility]) ID Date Data Source [id number] 03/20/2020 10:57:00 PM EST HEXT ([facility]) Name Value Range Interpretation Code Description Data Kaye rce(s) Supporting Document(s) bedside glucose 204 mg/dL 70-105 Above high normal Bedside Gluco se ROAMN ([facility]) ID Date Data Source [id number] 03/20/2020 10:57:00 PM EST HEXT ([facility]) Name Value Range Interpretation Code Description Data Kaye rce(s) Supporting Document(s) bedside glucose 204 mg/dL 70-105 Above high normal Bedside Gluco se ROMAN ([facility]) ID Date Data Source [id number] 03/20/2020 10:57:00 PM EST ROMAN ([facility]) Name Value Range Interpretation Code Description Data Kaye rce(s) Supporting Document(s) bedside glucose 204 mg/dL 70-105 Above high normal Bedside Gluco se ROMAN ([facility]) ID Date Data Source [id number] 03/20/2020 10:57:00 PM EST ROMAN ([facility]) Name Value Range Interpretation Code Description Data Kaye rce(s) Supporting Document(s) bedside glucose 204 mg/dL 70-105 Above high normal Bedside Gluco se ROMAN ([facility]) ID Date Data Source [id number] 03/20/2020 10:57:00 PM EST ROMAN ([facility]) Name Value Range Interpretation Code Description Data Kaye rce(s) Supporting Document(s) bedside glucose 204 mg/dL 70-105 Above high normal Bedside Gluco se ROMAN ([facility]) ID Date Data Source [id number] 03/20/2020 08:36:00 PM EST ROMAN ([facility]) Name Value Range Interpretation Code Description Data Kaye rce(s) Supporting Document(s) bedside glucose 163 mg/dL 70-105 Above high normal Bedside Gluco se ROMAN ([facility]) ID Date Data Source [id number] 03/20/2020 08:36:00 PM EST ROMAN ([facility]) Name Value Range Interpretation Code Description Data Kaye rce(s) Supporting Document(s) bedside glucose 163 mg/dL 70-105 Above high normal Bedside Gluco se ROMAN ([facility]) ID Date Data Source [id number] 03/20/2020 08:36:00 PM EST ROMAN ([facility]) Name Value Range Interpretation Code Description Data Kaye rce(s) Supporting Document(s) bedside glucose 163 mg/dL 70-105 Above high normal Bedside Gluco se ROMAN ([facility]) ID Date Data Source [id number] 03/20/2020 08:36:00 PM EST ROMAN ([facility]) Name Value Range Interpretation Code Description Data Kaye rce(s) Supporting Document(s) bedside glucose 163 mg/dL 70-105 Above high normal Bedside Gluco se ROMAN ([facility]) ID Date Data Source [id number] 03/20/2020 08:36:00 PM EST ROMAN ([facility]) Name Value Range Interpretation Code Description Data Kaye rce(s) Supporting Document(s) bedside glucose 163 mg/dL 70-105 Above high normal Bedside Gluco se ROMAN ([facility]) ID Date Data Source [id number] 03/20/2020 08:36:00 PM EST ROMAN ([facility]) Name Value Range Interpretation Code Description Data Kaye rce(s) Supporting Document(s) bedside glucose 163 mg/dL 70-105 Above high normal Bedside Gluco se ROMAN ([facility]) ID Date Data Source [id number] 03/20/2020 04:36:00 PM EST ROMAN ([facility]) Name Value Range Interpretation Code Description Data Kaye rce(s) Supporting Document(s) bedside glucose 144 mg/dL 70-105 Above high normal Bedside Gluco se ROMAN ([facility]) ID Date Data Source [id number] 03/20/2020 04:36[facility] Name Value Range Interpretation Code Description Data Kaye rce(s) Supporting Document(s) bedside glucose 144 mg/dL 70-105 Above high normal [facility] Date Data Source [id number] 03/20/2020 04:36:00 PM EST ROMAN ([facility]) Name Value Range Interpretation Code Description Data Kaye rce(s) Supporting Document(s) bedside glucose 144 mg/dL 70-105 Above high normal [facility] Date Data Source [id number] 03/20/2020 04:36:00 PM EST ROMAN ([facility]) Name Value Range Interpretation Code Description Data Kaye rce(s) Supporting Document(s) bedside glucose 144 mg/dL 70-105 Above high normal Bedside Gluco se ROMAN ([facility]) ID Date Data Source [id number] 03/20/2020 04:36:00 PM EST ROMAN ([facility]) Name Value Range Interpretation Code Description Data Kaye rce(s) Supporting Document(s) bedside glucose 144 mg/dL 70-105 Above high normal Bedside Gluco se ROMAN ([facility]) ID Date Data Source [id number] 03/20/2020 04:36:00 PM EST ROMAN ([facility]) Name Value Range Interpretation Code Description Data Kaye rce(s) Supporting Document(s) bedside glucose 144 mg/dL 70-105 Above high normal Bedside Gluco se ROMAN ([facility]) ID Date Data Source [id number] 03/20/2020 11:51:00 AM EST ROMAN ([facility]) Name Value Range Interpretation Code Description Data Kaye rce(s) Supporting Document(s) bedside glucose 138 mg/dL 70-105 Above high normal Bedside Gluco se ROMAN ([facility]) ID Date Data Source [id number] 03/20/2020 11:51:00 AM EST ROMAN [facility]) Name Value Range Interpretation Code Description Data Kaye rce(s) Supporting Document(s) bedside glucose 138 mg/dL 70-105 Above high normal Bedside Gluco se ROMAN ([facility]) ID Date Data Source [id number] 03/20/2020 11:51:00 AM EST ROMAN ([facility]) Name Value Range Interpretation Code Description Data Kaye rce(s) Supporting Document(s) bedside glucose 138 mg/dL 70-105 Above high normal Bedside Gluco se ROMAN ([facility]) ID Date Data Source [id number] 03/20/2020 11:51:00 AM EST ROMAN ([facility]) Name Value Range Interpretation Code Description Data Kaye rce(s) Supporting Document(s) bedside glucose 138 mg/dL 70-105 Above high normal Bedside Gluco se ROMAN ([facility]) ID Date Data Source [id number] 03/20/2020 11:51:00 AM EST ROMAN ([facility]) Name Value Range Interpretation Code Description Data Kaye rce(s) Supporting Document(s) bedside glucose 138 mg/dL 70-105 Above high normal Bedside Gluco se ROMAN ([facility]) ID Date Data Source [id number] 03/20/2020 11:51:00 AM EST ROMAN ([facility]) Name Value Range Interpretation Code Description Data Kaye rce(s) Supporting Document(s) bedside glucose 138 mg/dL 70-105 Above high normal Bedside Gluco se HEXT ([facility]) ID Date Data Source [id number] 03/20/2020 10:07:00 AM EST HEXT ([facility]) Name Value Range Interpretation Code Description Data Kaye rce(s) Supporting Document(s) glucose, fasting 182 mg/dL 70-100 Above high normal Glucose, Fas ting ROMAN ([facility]) blood urea nitrogen 19 mg/dL 7-18 Above high normal Blood Ure a Nitrogen ROMAN ([facility]) creatinine for GFR 1.41 mg/dL 0.55-1.30 Above high normal Creatinine for GFR HEXT ([facility]) glomerular filtration rate >58 Below low normal Beata merular Filtration Rate ROMAN ([facility]) sodium level 138 mEq/L 136-145 Sodium Level ROMAN ([facility]) potassium serum 3.8 mEq/L 3.5-5.1 Potassium Serum ATHE NA ([facility]) chloride level 110 mEq/L 98-107 Above high normal Chloride Level HEXT ([facility]) carbon dioxide level 15 mEq/L 21-32 Below low normal Carbon Di oxide Level HEXT ([facility]) anion gap 13 mEq/L 8-16 Anion Gap ROMAN ([facility]) AST/SGOT 10 U/L 7-37 AST/SGOT ROMAN ([facility]) calcium level 9.2 mg/dL 8.5-10.1 Calcium Level ROMAN ( [facility]) ALT/SGPT 17 U/L 12-78 ALT/SGPT ROMAN ([facility]) alkaline phosphatase 60 U/L 45-117 Alkaline Phosph atase ROMAN ([facility]) bilirubin,total 0.4 mg/dL 0.2-1.0 Bilirubin,total ATHE ([facility]) total protein 6.2 gm/dL 6.4-8.2 Below low normal Total Protein AT TRAM ([facility]) albumin 3.3 gm/dL 3.2-5.2 Albumin ROMAN ([facility]) albumin/globulin ratio 1.2-2.2 Below low normal Albumin /globulin Ratio ROMAN ([facility]) ID Date Data Source [id number] 03/20/2020 10:07:00 AM EST ROMAN ([facility]) Name Value Range Interpretation Code Description Data Kaye rce(s) Supporting Document(s) glucose, fasting 182 mg/dL 70-100 Above high normal Glucose, Fas ting ROMAN ([facility]) blood urea nitrogen 19 mg/dL 7-18 Above high normal Blood Ure a Nitrogen ROMAN ([facility]) creatinine for GFR 1.41 mg/dL 0.55-1.30 Above high normal Creatinine for GFR ROMAN ([facility]) glomerular filtration rate >58 Below low normal Beata merular Filtration Rate ROMAN ([facility]) potassium serum 3.8 mEq/L 3.5-5.1 Potassium Serum ATHE NA ([facility]) sodium level 138 mEq/L 136-145 Sodium Level ROMAN ([facility]) chloride level 110 mEq/L 98-107 Above high normal Chloride Level ROMAN ([facility]) carbon dioxide level 15 mEq/L 21-32 Below low normal Carbon Di oxide Level ROMAN ([facility]) anion gap 13 mEq/L 8-16 Anion Gap ROMAN ([facility]) calcium level 9.2 mg/dL 8.5-10.1 Calcium Level ROMAN ( [facility]) AST/SGOT 10 U/L 7-37 AST/SGOT ROMAN ([facility]) ALT/SGPT 17 U/L 12-78 ALT/SGPT ROMAN ([facility]) alkaline phosphatase 60 U/L 45-117 Alkaline Phosph atase ROMAN ([facility]) total protein 6.2 gm/dL 6.4-8.2 Below low normal Total Protein AT TRAM ([facility]) bilirubin,total 0.4 mg/dL 0.2-1.0 Bilirubin,total ATHE ([facility]) albumin 3.3 gm/dL 3.2-5.2 Albumin ROMAN ([facility]) albumin/globulin ratio 1.2-2.2 Below low normal Albumin /globulin Ratio ROMAN ([facility]) ID Date Data Source [id number] 03/20/2020 10:07:00 AM EST ROMAN ([facility]) Name Value Range Interpretation Code Description Data Kaye rce(s) Supporting Document(s) glucose, fasting 182 mg/dL 70-100 Above high normal Glucose, Fas ting ROMAN ([facility]) creatinine for GFR 1.41 mg/dL 0.55-1.30 Above high normal Creatinine for GFR ROMAN ([facility]) blood urea nitrogen 19 mg/dL 7-18 Above high normal Blood Ure a Nitrogen ROMAN ([facility]) glomerular filtration rate >58 Below low normal Beata merular Filtration Rate ROMAN ([facility]) sodium level 138 mEq/L 136-145 Sodium Level ROMAN ([facility]) potassium serum 3.8 mEq/L 3.5-5.1 Potassium Serum ATHE NA ([facility]) chloride level 110 mEq/L 98-107 Above high normal Chloride Level ROMAN ([facility]) carbon dioxide level 15 mEq/L 21-32 Below low normal Carbon Di oxide Level ROMAN ([facility]) anion gap 13 mEq/L 8-16 Anion Gap ROMAN ([facility]) calcium level 9.2 mg/dL 8.5-10.1 Calcium Level ROMAN ( [facility]) AST/SGOT 10 U/L 7-37 AST/SGOT ROMAN ([facility]) ALT/SGPT 17 U/L 12-78 ALT/SGPT ROMAN ([facility]) bilirubin,total 0.4 mg/dL 0.2-1.0 Bilirubin,total ATHE NA ([facility]) alkaline phosphatase 60 U/L 45-117 Alkaline Phosph atase ROMAN ([facility]) total protein 6.2 gm/dL 6.4-8.2 Below low normal Total Protein AT TRAM ([facility]) albumin/globulin ratio 1.2-2.2 Below low normal Albumin /globulin Ratio ROMAN ([facility]) albumin 3.3 gm/dL 3.2-5.2 Albumin ROMAN ([facility]) ID Date Data Source [id number] 03/20/2020 10:07:00 AM EST ROMAN ([facility]) Name Value Range Interpretation Code Description Data Kaye rce(s) Supporting Document(s) glucose, fasting 182 mg/dL 70-100 Above high normal Glucose, Fas ting ROMAN ([facility]) blood urea nitrogen 19 mg/dL 7-18 Above high normal Blood Ure a Nitrogen ROMAN ([facility]) creatinine for GFR 1.41 mg/dL 0.55-1.30 Above high normal Creatinine for GFR ROMAN ([facility]) glomerular filtration rate >58 Below low normal Beata merular Filtration Rate ROMAN ([facility]) sodium level 138 mEq/L 136-145 Sodium Level ROMAN ([facility]) potassium serum 3.8 mEq/L 3.5-5.1 Potassium Serum ATHE NA ([facility]) chloride level 110 mEq/L 98-107 Above high normal Chloride Level ROMAN ([facility]) carbon dioxide level 15 mEq/L 21-32 Below low normal Carbon Di oxide Level ROMAN ([facility]) anion gap 13 mEq/L 8-16 Anion Gap ROMAN ([facility]) calcium level 9.2 mg/dL 8.5-10.1 Calcium Level ROMAN ( [facility]) AST/SGOT 10 U/L 7-37 AST/SGOT ROMAN ([facility]) ALT/SGPT 17 U/L 12-78 ALT/SGPT ROMAN ([facility]) alkaline phosphatase 60 U/L 45-117 Alkaline Phosph atase ROMAN ([facility]) bilirubin,total 0.4 mg/dL 0.2-1.0 Bilirubin,total ATHE ([facility]) total protein 6.2 gm/dL 6.4-8.2 Below low normal Total Protein AT TRAM ([facility]) albumin 3.3 gm/dL 3.2-5.2 Albumin ROMAN ([facility]) albumin/globulin ratio 1.2-2.2 Below low normal Albumin /globulin Ratio ROMAN ([facility]) ID Date Data Source [id number] 03/20/2020 10:07:00 AM EST ROMAN ([facility]) Name Value Range Interpretation Code Description Data Kaye rce(s) Supporting Document(s) glucose, fasting 182 mg/dL 70-100 Above high normal Glucose, Fas ting ROMAN ([facility]) creatinine for GFR 1.41 mg/dL 0.55-1.30 Above high normal Creatinine for GFR ROMAN ([facility]) blood urea nitrogen 19 mg/dL 7-18 Above high normal Blood Ure a Nitrogen ROMAN ([facility]) glomerular filtration rate >58 Below low normal Beata merular Filtration Rate ROMAN ([facility]) sodium level 138 mEq/L 136-145 Sodium Level ROMAN ([facility]) potassium serum 3.8 mEq/L 3.5-5.1 Potassium Serum ATHE NA ([facility]) chloride level 110 mEq/L 98-107 Above high normal Chloride Level ROMAN ([facility]) carbon dioxide level 15 mEq/L 21-32 Below low normal Carbon Di oxide Level ROMAN ([facility]) anion gap 13 mEq/L 8-16 Anion Gap ROMAN ([facility]) calcium level 9.2 mg/dL 8.5-10.1 Calcium Level ROMAN ( [facility]) AST/SGOT 10 U/L 7-37 AST/SGOT ROMAN ([facility]) ALT/SGPT 17 U/L 12-78 ALT/SGPT ROMAN ([facility]) alkaline phosphatase 60 U/L 45-117 Alkaline Phosph atase ROMAN ([facility]) total protein 6.2 gm/dL 6.4-8.2 Below low normal Total Protein AT TRAM ([facility]) bilirubin,total 0.4 mg/dL 0.2-1.0 Bilirubin,total ATHE ([facility]) albumin 3.3 gm/dL 3.2-5.2 Albumin ROMAN ([facility]) albumin/globulin ratio 1.2-2.2 Below low normal Albumin /globulin Ratio ROMAN ([facility]) ID Date Data Source [id number] 03/20/2020 10:07:00 AM EST ROMAN ([facility]) Name Value Range Interpretation Code Description Data Kaye rce(s) Supporting Document(s) glucose, fasting 182 mg/dL 70-100 Above high normal Glucose, Fas ting ROMAN ([facility]) blood urea nitrogen 19 mg/dL 7-18 Above high normal Blood Ure a Nitrogen ROMAN ([facility]) creatinine for GFR 1.41 mg/dL 0.55-1.30 Above high normal Creatinine for GFR ROMAN ([facility]) glomerular filtration rate >58 Below low normal Beata merular Filtration Rate ROMAN ([facility]) sodium level 138 mEq/L 136-145 Sodium Level ROMAN ([facility]) potassium serum 3.8 mEq/L 3.5-5.1 Potassium Serum ATHE ([facility]) chloride level 110 mEq/L 98-107 Above high normal Chloride Level ROMAN ([facility]) carbon dioxide level 15 mEq/L 21-32 Below low normal Carbon Di oxide Level ROMAN ([facility]) anion gap 13 mEq/L 8-16 Anion Gap ROMAN ([facility]) calcium level 9.2 mg/dL 8.5-10.1 Calcium Level ROMAN ( [facility]) AST/SGOT 10 U/L 7-37 AST/SGOT ROMAN ([facility]) ALT/SGPT 17 U/L 12-78 ALT/SGPT ROMAN ([facility]) alkaline phosphatase 60 U/L 45-117 Alkaline Phosph atase ROMAN ([facility]) bilirubin,total 0.4 mg/dL 0.2-1.0 Bilirubin,total ATHE NA ([facility]) total protein 6.2 gm/dL 6.4-8.2 Below low normal Total Protein AT TRAM ([facility]) albumin 3.3 gm/dL 3.2-5.2 Albumin ROMAN ([facility]) albumin/globulin ratio 1.2-2.2 Below low normal Albumin /globulin Ratio ROMAN ([facility]) ID Date Data Source [id number] 03/20/2020 07:26:00 AM EST HEXT ([facility]) Name Value Range Interpretation Code Description Data Kaye rce(s) Supporting Document(s) bedside glucose 352 mg/dL 70-105 Above high normal Bedside Gluco se [facility]) ID Date Data Source [id number] 03/20/2020 07:26:00 AM EST ROMAN ([facility]) Name Value Range Interpretation Code Description Data Kaye rce(s) Supporting Document(s) bedside glucose 352 mg/dL 70-105 Above high normal Bedside Gluco se HEXT ([facility]) ID Date Data Source [id number] 03/20/2020 07:26:00 AM EST ROMAN ([facility]) Name Value Range Interpretation Code Description Data Kaye rce(s) Supporting Document(s) bedside glucose 352 mg/dL 70-105 Above high normal Bedside Gluco se ROMAN ([facility]) ID Date Data Source [id number] 03/20/2020 07:26:00 AM EST ROMAN ([facility]) Name Value Range Interpretation Code Description Data Kaye rce(s) Supporting Document(s) bedside glucose 352 mg/dL 70-105 Above high normal Bedside Gluco se ROMAN ([facility]) ID Date Data Source [id number] 03/20/2020 07:26:00 AM EST ROMAN ([facility]) Name Value Range Interpretation Code Description Data Kaye rce(s) Supporting Document(s) bedside glucose 352 mg/dL 70-105 Above high normal Bedside Gluco se ROMAN ([facility]) ID Date Data Source [id number] 03/20/2020 07:26[facility] Name Value Range Interpretation Code Description Data Kaye rce(s) Supporting Document(s) bedside glucose 352 mg/dL 70-105 Above high normal Bedside Gluco se HEXT ([facility]) ID Date Data Source [id number] 03/20/2020 07:08:00 AM EST ROMAN ([facility]) Name Value Range Interpretation Code Description Data Kaye rce(s) Supporting Document(s) acetone/ketone > 46.00 <2.81 Above high normal Acetone/ketone [facility]) ID Date Data Source [id number] 03/20/2020 07:08:00 AM EST ROMAN ([facility]) Name Value Range Interpretation Code Description Data Kaye rce(s) Supporting Document(s) red blood count 3.36 10 4.00-5.40 Below low normal Red Blood Coun t ROMAN ([facility]) white blood count 11.3 10 4.0-10.0 Above high normal White Blood Count HEXT ([facility]) hemoglobin 9.3 g/dL 12.0-15.5 Below low normal Hemoglobin HEXT ( [facility]) hematocrit 29.1 % 36.0-47.0 Below low normal Hematocrit ROMAN ( [facility]) mean corpuscular hemoglobin 27.7 pg 27.0-33.0 Mean Cor puscular Hemoglobin ROMAN ([facility]) mean corpuscular volume 86.6 fL 80.0-96.0 Mean Corpusc ular Volume ROMAN ([facility]) mean corpuscular HGB conc 32.0 g/dL 32.0-36.5 Mean Corpu scular HGB Conc ROMAN ([facility]) platelet count, automated 239 10 150-450 Platelet C ount, Automated ROMAN ([facility]) red cell distribution width 15.7 % 11.5-14.5 Above high no rmal Red Cell Distribution Width ROMAN ([facility]) nucleated red blood cell % 0.0 % 0-0 Nucleated Red Blood Cell % ROMAN ([facility]) ID Date Data Source [id number] 03/20/2020 07:08:00 AM EST HEXT ([facility]) Name Value Range Interpretation Code Description Data Kaye rce(s) Supporting Document(s) acetone/ketone > 46.00 <2.81 Above high normal Acetone/ketone HEXT ([facility]) ID Date Data Source [id number] 03/20/2020 07:08:00 AM EST HEXT ([facility]) Name Value Range Interpretation Code Description Data Kaye rce(s) Supporting Document(s) red blood count 3.36 10 4.00-5.40 Below low normal Red Blood Coun t ROMAN ([facility]) white blood count 11.3 10 4.0-10.0 Above high normal White Blood Count ROMAN ([facility]) hemoglobin 9.3 g/dL 12.0-15.5 Below low normal Hemoglobin ROMAN ( [facility]) hematocrit 29.1 % 36.0-47.0 Below low normal Hematocrit ROMAN ( [facility]) mean corpuscular volume 86.6 fL 80.0-96.0 Mean Corpusc ular Volume ROMAN ([facility]) mean corpuscular hemoglobin 27.7 pg 27.0-33.0 Mean Cor puscular Hemoglobin ROMAN ([facility]) mean corpuscular HGB conc 32.0 g/dL 32.0-36.5 Mean Corpu scular HGB Conc ROMAN ([facility]) red cell distribution width 15.7 % 11.5-14.5 Above high no rmal Red Cell Distribution Width ROMAN ([facility]) platelet count, automated 239 10 150-450 Platelet C ount, Automated ROMAN ([facility]) nucleated red blood cell % 0.0 % 0-0 Nucleated Red Blood Cell % HEXT ([facility]) ID Date Data Source [id number] 03/20/2020 07:08:00 AM EST HEXT ([facility]) Name Value Range Interpretation Code Description Data Kaye rce(s) Supporting Document(s) acetone/ketone > 46.00 <2.81 Above high normal Acetone/ketone HEXT ([facility]) ID Date Data Source [id number] 03/20/2020 07:08:00 AM EST HEXT ([facility]) Name Value Range Interpretation Code Description Data Kaye rce(s) Supporting Document(s) white blood count 11.3 10 4.0-10.0 Above high normal White Blood Count ROMAN ([facility]) red blood count 3.36 10 4.00-5.40 Below low normal Red Blood Coun t ROMAN ([facility]) hemoglobin 9.3 g/dL 12.0-15.5 Below low normal Hemoglobin ROMAN ( [facility]) hematocrit 29.1 % 36.0-47.0 Below low normal Hematocrit ROMAN ( [facility]) mean corpuscular volume 86.6 fL 80.0-96.0 Mean Corpusc ular Volume ROMAN ([facility]) mean corpuscular hemoglobin 27.7 pg 27.0-33.0 Mean Cor puscular Hemoglobin ROMAN ([facility]) red cell distribution width 15.7 % 11.5-14.5 Above high no rmal Red Cell Distribution Width ROMAN ([facility]) mean corpuscular HGB conc 32.0 g/dL 32.0-36.5 Mean Corpu scular HGB Conc HEXT ([facility]) platelet count, automated 239 10 150-450 Platelet C ount, Automated ROMAN ([facility]) nucleated red blood cell % 0.0 % 0-0 Nucleated Red Blood Cell % ROMAN ([facility]) ID Date Data Source [id number] 03/20/2020 07:08:00 AM EST HEXT ([facility]) Name Value Range Interpretation Code Description Data Kaye rce(s) Supporting Document(s) acetone/ketone > 46.00 <2.81 Above high normal Acetone/ketone HEXT ([facility]) ID Date Data Source [id number] 03/20/2020 07:08:00 AM EST ROMAN ([facility]) Name Value Range Interpretation Code Description Data Kaye rce(s) Supporting Document(s) white blood count 11.3 10 4.0-10.0 Above high normal White Blood Count ROMAN ([facility]) red blood count 3.36 10 4.00-5.40 Below low normal Red Blood Coun t ROMAN ([facility]) hemoglobin 9.3 g/dL 12.0-15.5 Below low normal Hemoglobin ROMAN ( [facility]) mean corpuscular volume 86.6 fL 80.0-96.0 Mean Corpusc ular Volume ROMAN ([facility]) hematocrit 29.1 % 36.0-47.0 Below low normal Hematocrit ROMAN ( [facility]) mean corpuscular hemoglobin 27.7 pg 27.0-33.0 Mean Cor puscular Hemoglobin ROMAN ([facility]) mean corpuscular HGB conc 32.0 g/dL 32.0-36.5 Mean Corpu scular HGB Conc ROMAN ([facility]) red cell distribution width 15.7 % 11.5-14.5 Above high no rmal Red Cell Distribution Width ROMAN ([facility]) platelet count, automated 239 10 150-450 Platelet C ount, Automated ROMAN ([facility]) nucleated red blood cell % 0.0 % 0-0 Nucleated Red Blood Cell % ROMAN ([facility]) ID Date Data Source [id number] 03/20/2020 07:08:00 AM EST HEXT ([facility]) Name Value Range Interpretation Code Description Data Kaye rce(s) Supporting Document(s) acetone/ketone > 46.00 <2.81 Above high normal Acetone/ketone HEXT ([facility]) ID Date Data Source [id number] 03/20/2020 07:08:00 AM EST HEXT ([facility]) Name Value Range Interpretation Code Description Data Kaye rce(s) Supporting Document(s) white blood count 11.3 10 4.0-10.0 Above high normal White Blood Count ROMAN ([facility]) red blood count 3.36 10 4.00-5.40 Below low normal Red Blood Coun t HEXT ([facility]) hematocrit 29.1 % 36.0-47.0 Below low normal Hematocrit HEXT ( [facility]) hemoglobin 9.3 g/dL 12.0-15.5 Below low normal Hemoglobin HEXT ( [facility]) mean corpuscular volume 86.6 fL 80.0-96.0 Mean Corpusc ular Volume ROMAN ([facility]) mean corpuscular hemoglobin 27.7 pg 27.0-33.0 Mean Cor puscular Hemoglobin ROMAN ([facility]) mean corpuscular HGB conc 32.0 g/dL 32.0-36.5 Mean Corpu scular HGB Conc HEXT ([facility]) red cell distribution width 15.7 % 11.5-14.5 Above high no rmal Red Cell Distribution Width ROMAN ([facility]) platelet count, automated 239 10 150-450 Platelet C ount, Automated ROMAN ([facility]) nucleated red blood cell % 0.0 % 0-0 Nucleated Red Blood Cell % ROMAN ([facility]) ID Date Data Source [id number] 03/20/2020 07:08:00 AM EST ROMAN ([facility]) Name Value Range Interpretation Code Description Data Kaye rce(s) Supporting Document(s) acetone/ketone > 46.00 <2.81 Above high normal Acetone/ketone ROMAN ([facility]) ID Date Data Source [id number] 03/20/2020 07:08:00 AM EST ROMAN ([facility]) Name Value Range Interpretation Code Description Data Kaye rce(s) Supporting Document(s) white blood count 11.3 10 4.0-10.0 Above high normal White Blood Count ROMAN ([facility]) red blood count 3.36 10 4.00-5.40 Below low normal Red Blood Coun t ROMAN ([facility]) hemoglobin 9.3 g/dL 12.0-15.5 Below low normal Hemoglobin ROMAN ( [facility]) hematocrit 29.1 % 36.0-47.0 Below low normal Hematocrit ROMAN ( [facility]) mean corpuscular volume 86.6 fL 80.0-96.0 Mean Corpusc ular Volume ROMAN ([facility]) mean corpuscular hemoglobin 27.7 pg 27.0-33.0 Mean Cor puscular Hemoglobin ROMAN ([facility]) mean corpuscular HGB conc 32.0 g/dL 32.0-36.5 Mean Corpu scular HGB Conc ROMAN ([facility]) red cell distribution width 15.7 % 11.5-14.5 Above high no rmal Red Cell Distribution Width ROMAN ([facility]) platelet count, automated 239 10 150-450 Platelet C ount, Automated ROMAN ([facility]) nucleated red blood cell % 0.0 % 0-0 Nucleated Red Blood Cell % ROMAN ([facility]) ID Date Data Source [id number] 03/20/2020 06:47:00 AM EST HEXT ([facility]) Name Value Range Interpretation Code Description Data Kaye rce(s) Supporting Document(s) bedside glucose 352 mg/dL 70-105 Above high normal Bedside Gluco se HEXT ([facility]) ID Date Data Source [id number] 03/20/2020 06:47:00 AM EST ROMAN ([facility]) Name Value Range Interpretation Code Description Data Kaye rce(s) Supporting Document(s) bedside glucose 352 mg/dL 70-105 Above high normal Bedside Gluco se HEXT ([facility]) ID Date Data Source [id number] 03/20/2020 06:47:00 AM EST [facility]) Name Value Range Interpretation Code Description Data Kaye rce(s) Supporting Document(s) bedside glucose 352 mg/dL 70-105 Above high normal Bedside Gluco se [facility]) ID Date Data Source [id number] 03/20/2020 06:47:00 AM EST [facility]) Name Value Range Interpretation Code Description Data Kaye rce(s) Supporting Document(s) bedside glucose 352 mg/dL 70-105 Above high normal Bedside Gluco se [facility]) ID Date Data Source [id number] 03/20/2020 06:47:00 AM EST [facility]) Name Value Range Interpretation Code Description Data Kaye rce(s) Supporting Document(s) bedside glucose 352 mg/dL 70-105 Above high normal Bedside Gluco se [facility]) ID Date Data Source [id number] 03/20/2020 06:47:00 AM EST [facility]) Name Value Range Interpretation Code Description Data Kaye rce(s) Supporting Document(s) bedside glucose 352 mg/dL 70-105 Above high normal Bedside Gluco se ROMAN ([facility]) ID Date Data Source [id number] 03/19/2020 09:10:00 PM EST ROMAN ([facility]) Name Value Range Interpretation Code Description Data Kaye rce(s) Supporting Document(s) bedside glucose 119 mg/dL 70-105 Above high normal Bedside Gluco se ROMAN ([facility]) ID Date Data Source [id number] 03/19/2020 09:10:00 PM EST ROMAN ([facility]) Name Value Range Interpretation Code Description Data Kaye rce(s) Supporting Document(s) bedside glucose 119 mg/dL 70-105 Above high normal Bedside Gluco se HEXT ([facility]) ID Date Data Source [id number] 03/19/2020 09:10:00 PM EST ROMAN ([facility]) Name Value Range Interpretation Code Description Data Kaye rce(s) Supporting Document(s) bedside glucose 119 mg/dL 70-105 Above high normal Bedside Gluco se HEXT ([facility]) ID Date Data Source [id number] 03/19/2020 09:10:00 [facility] Name Value Range Interpretation Code Description Data Kaye rce(s) Supporting Document(s) bedside glucose 119 mg/dL 70-105 Above high normal Bedside Gluco se ROMAN ([facility]) ID Date Data Source [id number] 03/19/2020 09:10:00 PM EST ROMAN ([facility]) Name Value Range Interpretation Code Description Data Kaye rce(s) Supporting Document(s) bedside glucose 119 mg/dL 70-105 Above high normal Bedside Gluco se [facility]) ID Date Data Source [id number] 03/19/2020 09:10:00 PM EST ROMAN ([facility]) Name Value Range Interpretation Code Description Data Kaye rce(s) Supporting Document(s) bedside glucose 119 mg/dL 70-105 Above high normal Bedside Gluco se ROMAN ([facility]) ID Date Data Source [id number] 03/19/2020 04:58:00 PM EST ROMAN ([facility]) Name Value Range Interpretation Code Description Data Kaye rce(s) Supporting Document(s) bedside glucose 136 mg/dL 70-105 Above high normal Bedside Gluco se ROMAN ([facility]) ID Date Data Source [id number] 03/19/2020 04:58:00 PM EST ROMAN ([facility]) Name Value Range Interpretation Code Description Data Kaye rce(s) Supporting Document(s) bedside glucose 136 mg/dL 70-105 Above high normal Bedside Gluco se ROMAN ([facility]) ID Date Data Source [id number] 03/19/2020 04:58:00 PM EST ROMAN ([facility]) Name Value Range Interpretation Code Description Data Kaye rce(s) Supporting Document(s) bedside glucose 136 mg/dL 70-105 Above high normal Bedside Gluco se ROMAN ([facility]) ID Date Data Source [id number] 03/19/2020 04:58:00 PM EST ROMAN ([facility]) Name Value Range Interpretation Code Description Data Kaye rce(s) Supporting Document(s) bedside glucose 136 mg/dL 70-105 Above high normal Bedside Gluco se ROMAN ([facility]) ID Date Data Source [id number] 03/19/2020 04:58:00 PM EST ROMAN ([facility]) Name Value Range Interpretation Code Description Data Kaye rce(s) Supporting Document(s) bedside glucose 136 mg/dL 70-105 Above high normal Bedside Gluco se ROMAN ([facility]) ID Date Data Source [id number] 03/19/2020 04:58:00 PM EST ROMAN ([facility]) Name Value Range Interpretation Code Description Data Kaye rce(s) Supporting Document(s) bedside glucose 136 mg/dL 70-105 Above high normal Bedside Gluco se ROMAN ([facility]) ID Date Data Source [id number] 03/19/2020 11:56:00 AM EST ROMAN [facility]) Name Value Range Interpretation Code Description Data Kaye rce(s) Supporting Document(s) acetone/ketone 33.70 mg/dL <2.81 Above high normal Acetone/keton e [facility]) ID Date Data Source [id number] 03/19/2020 11:56:00 AM EST ROMAN ([facility]) Name Value Range Interpretation Code Description Data Kaye rce(s) Supporting Document(s) glucose, fasting 137 mg/dL 70-100 Above high normal Glucose, Fas ting ROMAN ([facility]) creatinine for GFR 1.42 mg/dL 0.55-1.30 Above high normal Creatinine for GFR HEXT ([facility]) blood urea nitrogen 21 mg/dL 7-18 Above high normal Blood Ure a Nitrogen ROMAN ([facility]) glomerular filtration rate >58 Below low normal Beata merular Filtration Rate ROMAN ([facility]) potassium serum 3.7 mEq/L 3.5-5.1 Potassium Serum ATHE NA ([facility]) sodium level 139 mEq/L 136-145 Sodium Level ROMAN ([facility]) chloride level 112 mEq/L 98-107 Above high normal Chloride Level ROMAN ([facility]) carbon dioxide level 19 mEq/L 21-32 Below low normal Carbon Di oxide Level ROMAN ([facility]) anion gap 8 mEq/L 8-16 Anion Gap ROMAN ([facility]) calcium level 8.6 mg/dL 8.5-10.1 Calcium Level ROMAN ( [facility]) ID Date Data Source [id number] 03/19/2020 11:56:00 AM EST ROMAN ([facility]) Name Value Range Interpretation Code Description Data Kaye rce(s) Supporting Document(s) acetone/ketone 33.70 mg/dL <2.81 Above high normal Acetone/keton e ROMAN ([facility]) ID Date Data Source [id number] 03/19/2020 11:56:00 AM EST ROMAN ([facility]) Name Value Range Interpretation Code Description Data Kaye rce(s) Supporting Document(s) glucose, fasting 137 mg/dL 70-100 Above high normal Glucose, Fas ting ROMAN ([facility]) blood urea nitrogen 21 mg/dL 7-18 Above high normal Blood Ure a Nitrogen ROMAN ([facility]) creatinine for GFR 1.42 mg/dL 0.55-1.30 Above high normal Creatinine for GFR ROMAN ([facility]) glomerular filtration rate >58 Below low normal Beata merular Filtration Rate ROMAN ([facility]) potassium serum 3.7 mEq/L 3.5-5.1 Potassium Serum ATHE NA ([facility]) sodium level 139 mEq/L 136-145 Sodium Level ROMAN ([facility]) chloride level 112 mEq/L 98-107 Above high normal Chloride Level ROMAN ([facility]) carbon dioxide level 19 mEq/L 21-32 Below low normal Carbon Di oxide Level ROMAN ([facility]) anion gap 8 mEq/L 8-16 Anion Gap ROMAN ([facility]) calcium level 8.6 mg/dL 8.5-10.1 Calcium Level ROMAN ( [facility]) ID Date Data Source [id number] 03/19/2020 11:56:00 AM EST ROMAN ([facility]) Name Value Range Interpretation Code Description Data Kaye rce(s) Supporting Document(s) acetone/ketone 33.70 mg/dL <2.81 Above high normal Acetone/keton e ROMAN ([facility]) ID Date Data Source [id number] 03/19/2020 11:56:00 AM EST [facility]AN ([facility]) Name Value Range Interpretation Code Description Data Kaye rce(s) Supporting Document(s) blood urea nitrogen 21 mg/dL 7-18 Above high normal Blood Ure a Nitrogen ROMAN ([facility]) glucose, fasting 137 mg/dL 70-100 Above high normal Glucose, Fas ting ROMAN ([facility]) creatinine for GFR 1.42 mg/dL 0.55-1.30 Above high normal Creatinine for GFR [facility]AN ([facility]) sodium level 139 mEq/L 136-145 Sodium Level ROMAN ([facility]) glomerular filtration rate >58 Below low normal Beata merular Filtration Rate ROMAN ([facility]) potassium serum 3.7 mEq/L 3.5-5.1 Potassium Serum ATHE NA ([facility]) carbon dioxide level 19 mEq/L 21-32 Below low normal Carbon Di oxide Level ROMAN ([facility]) chloride level 112 mEq/L 98-107 Above high normal Chloride Level ROMAN ([facility]) anion gap 8 mEq/L 8-16 Anion Gap ROMAN ([facility]) calcium level 8.6 mg/dL 8.5-10.1 Calcium Level ROMAN ( [facility]) ID Date Data Source [id number] 03/19/2020 11:56:00 AM EST ROMAN ([facility]) Name Value Range Interpretation Code Description Data Kaye rce(s) Supporting Document(s) acetone/ketone 33.70 mg/dL <2.81 Above high normal Acetone/keton e ROMAN ([facility]) ID Date Data Source [id number] 03/19/2020 11:56:00 AM EST ROMAN ([facility]) Name Value Range Interpretation Code Description Data Kaye rce(s) Supporting Document(s) glucose, fasting 137 mg/dL 70-100 Above high normal Glucose, Fas ting HEXT ([facility]) blood urea nitrogen 21 mg/dL 7-18 Above high normal Blood Ure a Nitrogen ROMAN ([facility]) creatinine for GFR 1.42 mg/dL 0.55-1.30 Above high normal Creatinine for GFR ROMAN ([facility]) glomerular filtration rate >58 Below low normal Beata merular Filtration Rate ROMAN ([facility]) sodium level 139 mEq/L 136-145 Sodium Level ROMAN ([facility]) potassium serum 3.7 mEq/L 3.5-5.1 Potassium Serum ATHE NA ([facility]) chloride level 112 mEq/L 98-107 Above high normal Chloride Level HEXT ([facility]) carbon dioxide level 19 mEq/L 21-32 Below low normal Carbon Di oxide Level HEXT ([facility]) anion gap 8 mEq/L 8-16 Anion Gap ROMAN ([facility]) calcium level 8.6 mg/dL 8.5-10.1 Calcium Level HEXT ( [facility]) ID Date Data Source [id number] 03/19/2020 11:56:00 AM EST [facility]) Name Value Range Interpretation Code Description Data Kaye rce(s) Supporting Document(s) acetone/ketone 33.70 mg/dL <2.81 Above high normal Acetone/keton e ROMAN ([facility]) ID Date Data Source [id number] 03/19/2020 11:56:00 AM EST HEXT ([facility]) Name Value Range Interpretation Code Description Data Kaye rce(s) Supporting Document(s) glucose, fasting 137 mg/dL 70-100 Above high normal Glucose, Fas ting HEXT ([facility]) creatinine for GFR 1.42 mg/dL 0.55-1.30 Above high normal Creatinine for GFR ROMAN ([facility]) blood urea nitrogen 21 mg/dL 7-18 Above high normal Blood Ure a Nitrogen ROMAN ([facility]) glomerular filtration rate >58 Below low normal Beata merular Filtration Rate ROMAN ([facility]) sodium level 139 mEq/L 136-145 Sodium Level ROMAN ([facility]) potassium serum 3.7 mEq/L 3.5-5.1 Potassium Serum ATHE NA ([facility]) chloride level 112 mEq/L 98-107 Above high normal Chloride Level ROMAN ([facility]) carbon dioxide level 19 mEq/L 21-32 Below low normal Carbon Di oxide Level ROMAN ([facility]) anion gap 8 mEq/L 8-16 Anion Gap ROMAN ([facility]) calcium level 8.6 mg/dL 8.5-10.1 Calcium Level ROMAN ( [facility]) ID Date Data Source [id number] 03/19/2020 11:56:00 AM EST HEXT ([facility]) Name Value Range Interpretation Code Description Data Kaye rce(s) Supporting Document(s) acetone/ketone 33.70 mg/dL <2.81 Above high normal Acetone/keton e ROMAN ([facility]) ID Date Data Source [id number] 03/19/2020 11:56:00 AM EST [facility]) Name Value Range Interpretation Code Description Data Kaye rce(s) Supporting Document(s) glucose, fasting 137 mg/dL 70-100 Above high normal Glucose, Fas ting ROMAN ([facility]) blood urea nitrogen 21 mg/dL 7-18 Above high normal Blood Ure a Nitrogen ROMAN ([facility]) creatinine for GFR 1.42 mg/dL 0.55-1.30 Above high normal Creatinine for GFR ROMAN ([facility]) glomerular filtration rate >58 Below low normal Beata merular Filtration Rate ROMAN ([facility]) sodium level 139 mEq/L 136-145 Sodium Level ROMAN ([facility]) potassium serum 3.7 mEq/L 3.5-5.1 Potassium Serum ATHE NA ([facility]) chloride level 112 mEq/L 98-107 Above high normal Chloride Level ROMAN ([facility]) carbon dioxide level 19 mEq/L 21-32 Below low normal Carbon Di oxide Level ROMAN ([facility]) anion gap 8 mEq/L 8-16 Anion Gap ROMAN ([facility]) calcium level 8.6 mg/dL 8.5-10.1 Calcium Level ROMAN ( [facility]) ID Date Data Source [id number] 03/19/2020 11:37:00 AM EST ROMAN ([facility]) Name Value Range Interpretation Code Description Data Kaye rce(s) Supporting Document(s) bedside glucose 137 mg/dL 70-105 Above high normal Bedside Gluco se ROMAN ([facility]) ID Date Data Source [id number] 03/19/2020 11:37:00 AM EST ROMAN ([facility]) Name Value Range Interpretation Code Description Data Kaye rce(s) Supporting Document(s) bedside glucose 137 mg/dL 70-105 Above high normal Bedside Gluco se ROMAN ([facility]) ID Date Data Source [id number] 03/19/2020 11:37:00 AM EST ROMAN ([facility]) Name Value Range Interpretation Code Description Data Kaye rce(s) Supporting Document(s) bedside glucose 137 mg/dL 70-105 Above high normal Bedside Gluco se ROMAN ([facility]) ID Date Data Source [id number] 03/19/2020 11:37:00 AM EST ROMAN ([facility]) Name Value Range Interpretation Code Description Data Kaye rce(s) Supporting Document(s) bedside glucose 137 mg/dL 70-105 Above high normal Bedside Gluco se ROMAN ([facility]) ID Date Data Source [id number] 03/19/2020 11:37:00 [facility] Name Value Range Interpretation Code Description Data Kaye rce(s) Supporting Document(s) bedside glucose 137 mg/dL 70-105 Above high normal Bedside Gluco se ROMAN ([facility]) ID Date Data Source [id number] 03/19/2020 11:37:00 AM EST ROMAN ([facility]) Name Value Range Interpretation Code Description Data Kaye rce(s) Supporting Document(s) bedside glucose 137 mg/dL 70-105 Above high normal Bedside Gluco se ROMAN ([facility]) ID Date Data Source [id number] 03/19/2020 05:56:00 AM EST ROMAN ([facility]) Name Value Range Interpretation Code Description Data Kaye rce(s) Supporting Document(s) bedside glucose 343 mg/dL 70-105 Above high normal Bedside Gluco se HEXT ([facility]) ID Date Data Source [id number] 03/19/2020 05:56:00 AM EST [facility]) Name Value Range Interpretation Code Description Data Kaye rce(s) Supporting Document(s) bedside glucose 343 mg/dL 70-105 Above high normal [facility] Date Data Source [id number] 03/19/2020 05:56:00 AM EST ROMAN ([facility]) Name Value Range Interpretation Code Description Data Kaye rce(s) Supporting Document(s) bedside glucose 343 mg/dL 70-105 Above high normal Bedside Gluco se ROMAN ([facility]) ID Date Data Source [id number] 03/19/2020 05:56:00 AM [facility] Name Value Range Interpretation Code Description Data Kaye rce(s) Supporting Document(s) bedside glucose 343 mg/dL 70-105 Above high normal [facility] Date Data Source [id number] 03/19/2020 05:56:00 AM EST ROMAN ([facility]) Name Value Range Interpretation Code Description Data Kaye rce(s) Supporting Document(s) bedside glucose 343 mg/dL 70-105 Above high normal Bedside Gluco se ROMAN ([facility]) ID Date Data Source [id number] 03/19/2020 05:56:00 AM EST ROMAN ([facility]) Name Value Range Interpretation Code Description Data Kaye rce(s) Supporting Document(s) bedside glucose 343 mg/dL 70-105 Above high normal Bedside Gluco se ROMAN ([facility]) ID Date Data Source [id number] 03/18/2020 08:36:00 PM EST ROMAN ([facility]) Name Value Range Interpretation Code Description Data Kaye rce(s) Supporting Document(s) bedside glucose 199 mg/dL 70-105 Above high normal Bedside Gluco se HEXT ([facility]) ID Date Data Source [id number] 03/18/2020 08:36:00 PM EST ROMAN ([facility]) Name Value Range Interpretation Code Description Data Kaye rce(s) Supporting Document(s) bedside glucose 199 mg/dL 70-105 Above high normal [facility] Date Data Source [id number] 03/18/2020 08:36:00 PM EST ROMAN ([facility]) Name Value Range Interpretation Code Description Data Kaye rce(s) Supporting Document(s) bedside glucose 199 mg/dL 70-105 Above high normal [facility] Date Data Source [id number] 03/18/2020 08:36:00 PM EST ROMAN ([facility]) Name Value Range Interpretation Code Description Data Kaye rce(s) Supporting Document(s) bedside glucose 199 mg/dL 70-105 Above high normal Bedside Gluco se ROMAN ([facility]) ID Date Data Source [id number] 03/18/2020 08:36:00 PM EST ROMAN ([facility]) Name Value Range Interpretation Code Description Data Kaye rce(s) Supporting Document(s) bedside glucose 199 mg/dL 70-105 Above high normal Bedside Gluco se ROMAN ([facility]) ID Date Data Source [id number] 03/18/2020 08:36:00 PM EST ROMAN ([facility]) Name Value Range Interpretation Code Description Data Kaye rce(s) Supporting Document(s) bedside glucose 199 mg/dL 70-105 Above high normal Bedside Gluco se ROMAN ([facility]) ID Date Data Source [id number] 03/18/2020 04:52:00 PM EST ROMAN ([facility]) Name Value Range Interpretation Code Description Data Kaye rce(s) Supporting Document(s) bedside glucose 94 mg/dL 70-105 Bedside Glucose ATHE NA ([facility]) ID Date Data Source [id number] 03/18/2020 04:52:00 PM [facility] Name Value Range Interpretation Code Description Data Kaye rce(s) Supporting Document(s) bedside glucose 94 mg/dL 70-105 Bedside Glucose ATHE NA ([facility]) ID Date Data Source [id number] 03/18/2020 04:52:00 PM EST ROMAN ([facility]) Name Value Range Interpretation Code Description Data Kaye rce(s) Supporting Document(s) bedside glucose 94 mg/dL 70-105 Bedside Glucose ATHE NA ([facility]) ID Date Data Source [id number] 03/18/2020 04:52:00 PM EST ROMAN ([facility]) Name Value Range Interpretation Code Description Data Kaye rce(s) Supporting Document(s) bedside glucose 94 mg/dL 70-105 Bedside Glucose ATHVanessa ORDOÑEZ ([facility]) ID Date Data Source [id number] 03/18/2020 04:52:00 PM EST ROMAN ([facility]) Name Value Range Interpretation Code Description Data Kaye rce(s) Supporting Document(s) bedside glucose 94 mg/dL 70-105 Bedside Glucose ATHE TIAGO ([facility]) ID Date Data Source [id number] 03/18/2020 04:52:00 PM EST ROMAN ([facility]) Name Value Range Interpretation Code Description Data Kaye rce(s) Supporting Document(s) bedside glucose 94 mg/dL 70-105 Bedside Glucose ATHVanessa ORDOÑEZ ([facility]) ID Date Data Source [id number] 03/18/2020 04:11:00 PM EST ROMAN ([facility]) Name Value Range Interpretation Code Description Data Kaye rce(s) Supporting Document(s) glucose, fasting 116 mg/dL 70-100 Above high normal Glucose, Fas ting ROMAN ([facility]) blood urea nitrogen 26 mg/dL 7-18 Above high normal Blood Ure a Nitrogen ROMAN ([facility]) creatinine for GFR 1.25 mg/dL 0.55-1.30 Creatinine for GF R ROMAN ([facility]) glomerular filtration rate >58 Glomerula r Filtration Rate ROMAN ([facility]) sodium level 140 mEq/L 136-145 Sodium Level ROMAN ([facility]) potassium serum 3.6 mEq/L 3.5-5.1 Potassium Serum ATHE ([facility]) chloride level 112 mEq/L 98-107 Above high normal Chloride Level HEXT ([facility]) anion gap 10 mEq/L 8-16 Anion Gap ROMAN ([facility]) carbon dioxide level 18 mEq/L 21-32 Below low normal [facility] calcium level 7.7 mg/dL 8.5-10.1 Below low normal Calcium Level AT [facility] ([facility]) ID Date Data Source [id number] 03/18/2020 04:11:00 PM EST HEXT ([facility]) Name Value Range Interpretation Code Description Data Kaye rce(s) Supporting Document(s) glucose, fasting 116 mg/dL 70-100 Above high normal Glucose, Fas ting ROMAN ([facility]) blood urea nitrogen 26 mg/dL 7-18 Above high normal Blood Ure a Nitrogen ROMAN ([facility]) glomerular filtration rate >58 Glomerula r Filtration Rate HEXT ([facility]) creatinine for GFR 1.25 mg/dL 0.55-1.30 Creatinine for GF R HEXT ([facility]) sodium level 140 mEq/L 136-145 Sodium Level ROMAN ([facility]) chloride level 112 mEq/L 98-107 Above high normal Chloride Level ROMAN ([facility]) potassium serum 3.6 mEq/L 3.5-5.1 Potassium Serum ATHE NA ([facility]) carbon dioxide level 18 mEq/L 21-32 Below low normal Carbon Di oxide Level HEXT ([facility]) anion gap 10 mEq/L 8-16 Anion Gap ROMAN ([facility]) calcium level 7.7 mg/dL 8.5-10.1 Below low normal Calcium Level AT [facility] ([facility]) ID Date Data Source [id number] 03/18/2020 04:11:00 PM EST HEXT ([facility]) Name Value Range Interpretation Code Description Data Kaye rce(s) Supporting Document(s) glucose, fasting 116 mg/dL 70-100 Above high normal Glucose, Fas ting HEXT ([facility]) blood urea nitrogen 26 mg/dL 7-18 Above high normal Blood Ure a Nitrogen ROMAN ([facility]) creatinine for GFR 1.25 mg/dL 0.55-1.30 Creatinine for GF R ROMAN ([facility]) glomerular filtration rate >58 Glomerula r Filtration Rate ROMAN ([facility]) potassium serum 3.6 mEq/L 3.5-5.1 Potassium Serum ATHE NA ([facility]) sodium level 140 mEq/L 136-145 Sodium Level ROMAN ([facility]) chloride level 112 mEq/L 98-107 Above high normal Chloride Level ROMAN ([facility]) carbon dioxide level 18 mEq/L 21-32 Below low normal Carbon Di oxide Level ROMAN ([facility]) calcium level 7.7 mg/dL 8.5-10.1 Below low normal Calcium Level AT [facility] ([facility]) anion gap 10 mEq/L 8-16 Anion Gap ROMAN ([facility]) ID Date Data Source [id number] 03/18/2020 04:11:00 PM EST HEXT ([facility]) Name Value Range Interpretation Code Description Data Kaye rce(s) Supporting Document(s) glucose, fasting 116 mg/dL 70-100 Above high normal Glucose, Fas ting ROMAN ([facility]) blood urea nitrogen 26 mg/dL 7-18 Above high normal Blood Ure a Nitrogen ROMAN ([facility]) creatinine for GFR 1.25 mg/dL 0.55-1.30 Creatinine for GF R ROMAN ([facility]) glomerular filtration rate >58 Glomerula r Filtration Rate ROMAN ([facility]) sodium level 140 mEq/L 136-145 Sodium Level ROMAN ([facility]) potassium serum 3.6 mEq/L 3.5-5.1 Potassium Serum ATHE NA ([facility]) chloride level 112 mEq/L 98-107 Above high normal Chloride Level ROMAN ([facility]) carbon dioxide level 18 mEq/L 21-32 Below low normal Carbon Di oxide Level ROMAN ([facility]) anion gap 10 mEq/L 8-16 Anion Gap ROMAN ([facility]) calcium level 7.7 mg/dL 8.5-10.1 Below low normal Calcium Level AT [facility] ([facility]) ID Date Data Source [id number] 03/18/2020 04:11:00 PM EST ROMAN ([facility]) Name Value Range Interpretation Code Description Data Kaye rce(s) Supporting Document(s) glucose, fasting 116 mg/dL 70-100 Above high normal Glucose, Fas ting ROMAN ([facility]) blood urea nitrogen 26 mg/dL 7-18 Above high normal Blood Ure a Nitrogen ROMAN ([facility]) glomerular filtration rate >58 Glomerula r Filtration Rate ROMAN ([facility]) creatinine for GFR 1.25 mg/dL 0.55-1.30 Creatinine for GF R ROMAN ([facility]) potassium serum 3.6 mEq/L 3.5-5.1 Potassium Serum ATHE NA ([facility]) sodium level 140 mEq/L 136-145 Sodium Level ROMAN ([facility]) chloride level 112 mEq/L 98-107 Above high normal Chloride Level HEXT ([facility]) anion gap 10 mEq/L 8-16 Anion Gap ROMAN ([facility]) carbon dioxide level 18 mEq/L 21-32 Below low normal Carbon Di oxide Level HEXT ([facility]) calcium level 7.7 mg/dL 8.5-10.1 Below low normal Calcium Level AT [facility] ([facility]) ID Date Data Source [id number] 03/18/2020 04:11:00 PM EST ROMAN ([facility]) Name Value Range Interpretation Code Description Data Kaye rce(s) Supporting Document(s) glucose, fasting 116 mg/dL 70-100 Above high normal Glucose, Fas ting ROMAN ([facility]) blood urea nitrogen 26 mg/dL 7-18 Above high normal Blood Ure a Nitrogen ROMAN ([facility]) creatinine for GFR 1.25 mg/dL 0.55-1.30 Creatinine for GF R ROMAN ([facility]) glomerular filtration rate >58 Glomerula r Filtration Rate ROMAN ([facility]) sodium level 140 mEq/L 136-145 Sodium Level ROMAN ([facility]) potassium serum 3.6 mEq/L 3.5-5.1 Potassium Serum ATHE NA ([facility]) carbon dioxide level 18 mEq/L 21-32 Below low normal Carbon Di oxide Level ROMAN ([facility]) chloride level 112 mEq/L 98-107 Above high normal Chloride Level ROMAN ([facility]) anion gap 10 mEq/L 8-16 Anion Gap ROMAN ([facility]) calcium level 7.7 mg/dL 8.5-10.1 Below low normal Calcium Level AT [facility] ([facility]) ID Date Data Source [id number] 03/18/2020 10:59:00 AM EST ROMAN ([facility]) Name Value Range Interpretation Code Description Data Kaye rce(s) Supporting Document(s) bedside glucose 195 mg/dL 70-105 Above high normal Bedside Gluco se HEXT ([facility]) ID Date Data Source [id number] 03/18/2020 10:59:00 AM EST ROMAN ([facility]) Name Value Range Interpretation Code Description Data Kaye rce(s) Supporting Document(s) bedside glucose 195 mg/dL 70-105 Above high normal Bedside Gluco se ROMAN ([facility]) ID Date Data Source [id number] 03/18/2020 10:59:00 AM EST ROMAN ([facility]) Name Value Range Interpretation Code Description Data Kaye rce(s) Supporting Document(s) bedside glucose 195 mg/dL 70-105 Above high normal Bedside Gluco se ROMAN ([facility]) ID Date Data Source [id number] 03/18/2020 10:59:00 AM EST ROMAN ([facility]) Name Value Range Interpretation Code Description Data Kaye rce(s) Supporting Document(s) bedside glucose 195 mg/dL 70-105 Above high normal Bedside Gluco se ROMAN ([facility]) ID Date Data Source [id number] 03/18/2020 10:59:00 AM EST ROMAN ([facility]) Name Value Range Interpretation Code Description Data Kaye rce(s) Supporting Document(s) bedside glucose 195 mg/dL 70-105 Above high normal Bedside Gluco se ROMAN ([facility]) ID Date Data Source [id number] 03/18/2020 10:59:00 AM EST ROMAN ([facility]) Name Value Range Interpretation Code Description Data Kaye rce(s) Supporting Document(s) bedside glucose 195 mg/dL 70-105 Above high normal Bedside Gluco se ROMAN ([facility]) ID Date Data Source [id number] 03/18/2020 07:39:00 AM EST ROMAN ([facility]) Name Value Range Interpretation Code Description Data Kaye rce(s) Supporting Document(s) blood urea nitrogen 30 mg/dL 7-18 Above high normal Blood Ure a Nitrogen ROMAN ([facility]) glucose, fasting 67 mg/dL 70-100 Below low normal Glucose, Fast ing ROMAN ([facility]) glomerular filtration rate >58 Below low normal Beata merular Filtration Rate ROMAN ([facility]) creatinine for GFR 1.33 mg/dL 0.55-1.30 Above high normal Creatinine for GFR ROMAN ([facility]) sodium level 140 mEq/L 136-145 Sodium Level ROMAN ([facility]) chloride level 109 mEq/L 98-107 Above high normal Chloride Level ROMAN ([facility]) potassium serum 3.9 mEq/L 3.5-5.1 Potassium Serum ATHE NA ([facility]) carbon dioxide level 22 mEq/L 21-32 Carbon Dioxide Level ROMAN ([facility]) anion gap 9 mEq/L 8-16 Anion Gap ROMAN ([facility]) calcium level 8.0 mg/dL 8.5-10.1 Below low normal Calcium Level AT [facility]) ID Date Data Source [id number] 03/18/2020 07:39:00 AM EST ROMAN ([facility]) Name Value Range Interpretation Code Description Data Kaye rce(s) Supporting Document(s) white blood count 9.7 10 4.0-10.0 White Blood Count HEXT ([facility]) red blood count 3.35 10 4.00-5.40 Below low normal Red Blood Coun t HEXT ([facility]) hemoglobin 9.4 g/dL 12.0-15.5 Below low normal Hemoglobin HEXT ( [facility]) hematocrit 28.8 % 36.0-47.0 Below low normal Hematocrit HEXT ( [facility]) mean corpuscular volume 86.0 fL 80.0-96.0 Mean Corpusc ular Volume HEXT ([facility]) mean corpuscular hemoglobin 28.1 pg 27.0-33.0 Mean Cor puscular Hemoglobin HEXT ([facility]) mean corpuscular HGB conc 32.6 g/dL 32.0-36.5 Mean Corpu scular HGB Conc HEXT ([facility]) platelet count, automated 270 10 150-450 Platelet C ount, Automated ROMAN ([facility]) red cell distribution width 15.9 % 11.5-14.5 Above high no rmal Red Cell Distribution Width HEXT ([facility]) nucleated red blood cell % 0.0 % 0-0 Nucleated Red Blood Cell % HEXT ([facility]) ID Date Data Source [id number] 03/18/2020 07:39:00 AM EST [facility]EXT ([facility]) Name Value Range Interpretation Code Description Data Kaye rce(s) Supporting Document(s) glucose, fasting 67 mg/dL 70-100 Below low normal Glucose, Fast ing ROMAN ([facility]) blood urea nitrogen 30 mg/dL 7-18 Above high normal Blood Ure a Nitrogen ROMAN ([facility]) creatinine for GFR 1.33 mg/dL 0.55-1.30 Above high normal Creatinine for GFR [facility]EXT ([facility]) glomerular filtration rate >58 Below low normal Beata merular Filtration Rate HEXT ([facility]) potassium serum 3.9 mEq/L 3.5-5.1 Potassium Serum ATHE NA ([facility]) sodium level 140 mEq/L 136-145 Sodium Level ROMAN ([facility]) carbon dioxide level 22 mEq/L 21-32 Carbon Dioxide Level ROMAN ([facility]) chloride level 109 mEq/L 98-107 Above high normal Chloride Level ROMAN ([facility]) anion gap 9 mEq/L 8-16 Anion Gap ROMAN ([facility]) calcium level 8.0 mg/dL 8.5-10.1 Below low normal Calcium Level AT [facility]) ID Date Data Source [id number] 03/18/2020 07:39:00 AM EST [facility]) Name Value Range Interpretation Code Description Data Kaye rce(s) Supporting Document(s) white blood count 9.7 10 4.0-10.0 White Blood Count HEXT ([facility]) red blood count 3.35 10 4.00-5.40 Below low normal Red Blood Coun t ROMAN ([facility]) hematocrit 28.8 % 36.0-47.0 Below low normal Hematocrit ROMAN ( [facility]) hemoglobin 9.4 g/dL 12.0-15.5 Below low normal Hemoglobin HEXT ( [facility]) mean corpuscular volume 86.0 fL 80.0-96.0 Mean Corpusc ular Volume ROMAN ([facility]) mean corpuscular HGB conc 32.6 g/dL 32.0-36.5 Mean Corpu scular HGB Conc ROMAN ([facility]) mean corpuscular hemoglobin 28.1 pg 27.0-33.0 Mean Cor puscular Hemoglobin ROMAN ([facility]) platelet count, automated 270 10 150-450 [facility] red cell distribution width 15.9 % 11.5-14.5 Above high no rmal Red Cell Distribution Width ROMAN ([facility]) nucleated red blood cell % 0.0 % 0-0 Nucleated Red Blood Cell % HEXT ([facility]) ID Date Data Source [id number] 03/18/2020 07:39:00 AM EST ROMAN ([facility]) Name Value Range Interpretation Code Description Data Kaye rce(s) Supporting Document(s) glucose, fasting 67 mg/dL 70-100 Below low normal Glucose, Fast ing ROMAN ([facility]) creatinine for GFR 1.33 mg/dL 0.55-1.30 Above high normal Creatinine for GFR ROMAN ([facility]) blood urea nitrogen 30 mg/dL 7-18 Above high normal Blood Ure a Nitrogen ROMAN ([facility]) glomerular filtration rate >58 Below low normal Beata merular Filtration Rate ROMAN ([facility]) sodium level 140 mEq/L 136-145 Sodium Level ROMAN ([facility]) potassium serum 3.9 mEq/L 3.5-5.1 Potassium Serum ATH NA ([facility]) chloride level 109 mEq/L 98-107 Above high normal Chloride Level HEXT ([facility]) carbon dioxide level 22 mEq/L 21-32 Carbon Dioxide Level HEXT ([facility]) anion gap 9 mEq/L 8-16 Anion Gap ROMAN ([facility]) calcium level 8.0 mg/dL 8.5-10.1 Below low normal Calcium Level AT [facility]) ID Date Data Source [id number] 03/18/2020 07:39:00 AM EST ROMAN ([facility]) Name Value Range Interpretation Code Description Data Kaye rce(s) Supporting Document(s) white blood count 9.7 10 4.0-10.0 White Blood Count HEXT ([facility]) red blood count 3.35 10 4.00-5.40 Below low normal Red Blood Coun t ROMAN ([facility]) hematocrit 28.8 % 36.0-47.0 Below low normal Hematocrit ROMAN ( [facility]) hemoglobin 9.4 g/dL 12.0-15.5 Below low normal Hemoglobin HEXT ( [facility]) mean corpuscular volume 86.0 fL 80.0-96.0 Mean Corpusc ular Volume ROMAN ([facility]) mean corpuscular hemoglobin 28.1 pg 27.0-33.0 Mean Cor puscular Hemoglobin HEXT ([facility]) mean corpuscular HGB conc 32.6 g/dL 32.0-36.5 Mean Corpu scular HGB Conc ROMAN ([facility]) red cell distribution width 15.9 % 11.5-14.5 Above high no rmal Red Cell Distribution Width ROMAN ([facility]) platelet count, automated 270 10 150-450 Platelet C ount, Automated ROMAN ([facility]) nucleated red blood cell % 0.0 % 0-0 Nucleated Red Blood Cell % HEXT ([facility]) ID Date Data Source [id number] 03/18/2020 07:39:00 AM EST [facility]) Name Value Range Interpretation Code Description Data Kaye rce(s) Supporting Document(s) glucose, fasting 67 mg/dL 70-100 Below low normal Glucose, Fast ing ROMAN ([facility]) blood urea nitrogen 30 mg/dL 7-18 Above high normal Blood Ure a Nitrogen HEXT ([facility]) creatinine for GFR 1.33 mg/dL 0.55-1.30 Above high normal Creatinine for GFR HEXT ([facility]) glomerular filtration rate >58 Below low normal Beata merular Filtration Rate ROMAN ([facility]) potassium serum 3.9 mEq/L 3.5-5.1 Potassium Serum ATH NA ([facility]) sodium level 140 mEq/L 136-145 Sodium Level ROMAN ([facility]) chloride level 109 mEq/L 98-107 Above high normal Chloride Level ROMAN ([facility]) carbon dioxide level 22 mEq/L 21-32 Carbon Dioxide Level HEXT ([facility]) calcium level 8.0 mg/dL 8.5-10.1 Below low normal Calcium Level AT [facility] ([facility]) anion gap 9 mEq/L 8-16 Anion Gap HEXT ([facility]) ID Date Data Source [id number] 03/18/2020 07:39:00 AM EST HEXT ([facility]) Name Value Range Interpretation Code Description Data Kaye rce(s) Supporting Document(s) white blood count 9.7 10 4.0-10.0 White Blood Count HEXT ([facility]) red blood count 3.35 10 4.00-5.40 Below low normal Red Blood Coun t HEXT ([facility]) hematocrit 28.8 % 36.0-47.0 Below low normal Hematocrit HEXT ( [facility]) hemoglobin 9.4 g/dL 12.0-15.5 Below low normal Hemoglobin HEXT ( [facility]) mean corpuscular volume 86.0 fL 80.0-96.0 Mean Corpusc ular Volume HEXT ([facility]) mean corpuscular hemoglobin 28.1 pg 27.0-33.0 Mean Cor puscular Hemoglobin HEXT ([facility]) mean corpuscular HGB conc 32.6 g/dL 32.0-36.5 Mean Corpu scular HGB Conc HEXT ([facility]) red cell distribution width 15.9 % 11.5-14.5 Above high no rmal Red Cell Distribution Width HEXT ([facility]) nucleated red blood cell % 0.0 % 0-0 Nucleated Red Blood Cell % HEXT ([facility]) platelet count, automated 270 10 150-450 Platelet C ount, Automated [facility]) ID Date Data Source [id number] 03/18/2020 07:39:00 AM EST HEXT ([facility]) Name Value Range Interpretation Code Description Data Kaye rce(s) Supporting Document(s) glucose, fasting 67 mg/dL 70-100 Below low normal Glucose, Fast ing HEXT ([facility]) creatinine for GFR 1.33 mg/dL 0.55-1.30 Above high normal Creatinine for GFR HEXT ([facility]) blood urea nitrogen 30 mg/dL 7-18 Above high normal Blood Ure a Nitrogen HEXT ([facility]) glomerular filtration rate >58 Below low normal Beata merular Filtration Rate ROMAN ([facility]) sodium level 140 mEq/L 136-145 Sodium Level ROMAN ([facility]) potassium serum 3.9 mEq/L 3.5-5.1 Potassium Serum ATHE NA ([facility]) carbon dioxide level 22 mEq/L 21-32 Carbon Dioxide Level ROMAN ([facility]) chloride level 109 mEq/L 98-107 Above high normal Chloride Level ROMAN ([facility]) anion gap 9 mEq/L 8-16 Anion Gap ROMAN ([facility]) calcium level 8.0 mg/dL 8.5-10.1 Below low normal Calcium Level AT [facility]) ID Date Data Source [id number] 03/18/2020 07:39:00 AM EST [facility]) Name Value Range Interpretation Code Description Data Kaye rce(s) Supporting Document(s) red blood count 3.35 10 4.00-5.40 Below low normal Red Blood Coun t HEXT ([facility]) white blood count 9.7 10 4.0-10.0 White Blood Count HEXT ([facility]) hemoglobin 9.4 g/dL 12.0-15.5 Below low normal Hemoglobin ROMAN ( [facility]) hematocrit 28.8 % 36.0-47.0 Below low normal Hematocrit HEXT ( [facility]) mean corpuscular volume 86.0 fL 80.0-96.0 Mean Corpusc ular Volume ROMAN ([facility]) mean corpuscular hemoglobin 28.1 pg 27.0-33.0 Mean Cor puscular Hemoglobin ROMAN ([facility]) mean corpuscular HGB conc 32.6 g/dL 32.0-36.5 Mean Corpu scular HGB Conc ROMAN ([facility]) red cell distribution width 15.9 % 11.5-14.5 Above high no rmal Red Cell Distribution Width ROMAN ([facility]) platelet count, automated 270 10 150-450 Platelet C ount, Automated ROMAN ([facility]) nucleated red blood cell % 0.0 % 0-0 Nucleated Red Blood Cell % ROMAN ([facility]) ID Date Data Source [id number] 03/18/2020 07:39:00 AM EST ROMAN ([facility]) Name Value Range Interpretation Code Description Data Kaye rce(s) Supporting Document(s) glucose, fasting 67 mg/dL 70-100 Below low normal Glucose, Fast ing ROMAN ([facility]) blood urea nitrogen 30 mg/dL 7-18 Above high normal Blood Ure a Nitrogen ROMAN ([facility]) creatinine for GFR 1.33 mg/dL 0.55-1.30 Above high normal Creatinine for GFR ROMAN ([facility]) glomerular filtration rate >58 Below low normal Beata merular Filtration Rate ROMAN ([facility]) sodium level 140 mEq/L 136-145 Sodium Level ROMAN ([facility]) chloride level 109 mEq/L 98-107 Above high normal Chloride Level ROMAN ([facility]) potassium serum 3.9 mEq/L 3.5-5.1 Potassium Serum ATHE NA ([facility]) carbon dioxide level 22 mEq/L 21-32 Carbon Dioxide Level HEXT ([facility]) anion gap 9 mEq/L 8-16 Anion Gap ROMAN ([facility]) calcium level 8.0 mg/dL 8.5-10.1 Below low normal Calcium Level AT [facility] ([facility]) ID Date Data Source [id number] 03/18/2020 07:39:00 AM EST ROMAN ([facility]) Name Value Range Interpretation Code Description Data Kaye rce(s) Supporting Document(s) white blood count 9.7 10 4.0-10.0 White Blood Count ROMAN ([facility]) red blood count 3.35 10 4.00-5.40 Below low normal Red Blood Coun t ROMAN ([facility]) hemoglobin 9.4 g/dL 12.0-15.5 Below low normal Hemoglobin HEXT ( [facility]) hematocrit 28.8 % 36.0-47.0 Below low normal Hematocrit ROMAN ( [facility]) mean corpuscular volume 86.0 fL 80.0-96.0 Mean Corpusc ular Volume ROMAN ([facility]) mean corpuscular hemoglobin 28.1 pg 27.0-33.0 Mean Cor puscular Hemoglobin ROMAN ([facility]) mean corpuscular HGB conc 32.6 g/dL 32.0-36.5 Mean Corpu scular HGB Conc ROMAN ([facility]) red cell distribution width 15.9 % 11.5-14.5 Above high no rmal Red Cell Distribution Width ROMAN ([facility]) platelet count, automated 270 10 150-450 Platelet C ount, Automated ROMAN ([facility]) nucleated red blood cell % 0.0 % 0-0 Nucleated Red Blood Cell % HEXT ([facility]) ID Date Data Source [id number] 03/18/2020 07:01:00 AM EST ROMAN ([facility]) Name Value Range Interpretation Code Description Data Kaye rce(s) Supporting Document(s) bedside glucose 57 mg/dL 70-105 Below low normal Bedside Glucos e ROMAN ([facility]) ID Date Data Source [id number] 03/18/2020 07:01:00 [facility] Name Value Range Interpretation Code Description Data Kaye rce(s) Supporting Document(s) bedside glucose 57 mg/dL 70-105 Below low normal Bedside Glucos e ROMAN ([facility]) ID Date Data Source [id number] 03/18/2020 07:01:00 AM EST ROMAN ([facility]) Name Value Range Interpretation Code Description Data Kaye rce(s) Supporting Document(s) bedside glucose 57 mg/dL 70-105 Below low normal Bedside Glucos e ROMAN ([facility]) ID Date Data Source [id number] 03/18/2020 07:01:00 AM EST ROMAN ([facility]) Name Value Range Interpretation Code Description Data Kaye rce(s) Supporting Document(s) bedside glucose 57 mg/dL 70-105 Below low normal Bedside Glucos e ROMAN ([facility]) ID Date Data Source [id number] 03/18/2020 07:01:00 AM EST ROMAN ([facility]) Name Value Range Interpretation Code Description Data Kaye rce(s) Supporting Document(s) bedside glucose 57 mg/dL 70-105 Below low normal Bedside Glucos e ROMAN ([facility]) ID Date Data Source [id number] 03/18/2020 07:01:00 AM EST ROMAN ([facility]) Name Value Range Interpretation Code Description Data Kaye rce(s) Supporting Document(s) bedside glucose 57 mg/dL 70-105 Below low normal Bedside Glucos e ROMAN ([facility]) ID Date Data Source [id number] 03/18/2020 01:02:00 AM EST ROMAN ([facility]) Name Value Range Interpretation Code Description Data Kaye rce(s) Supporting Document(s) glucose, fasting 292 mg/dL 70-100 Above high normal Glucose, Fas ting ROMAN ([facility]) blood urea nitrogen 36 mg/dL 7-18 Above high normal Blood Ure a Nitrogen ROMAN ([facility]) creatinine for GFR 1.39 mg/dL 0.55-1.30 Above high normal Creatinine for GFR ROMAN ([facility]) glomerular filtration rate >58 Below low normal Beata merular Filtration Rate ROMAN ([facility]) sodium level 138 mEq/L 136-145 Sodium Level ROMAN ([facility]) potassium serum 4.3 mEq/L 3.5-5.1 Potassium Serum ATHE NA ([facility]) chloride level 106 mEq/L 98-107 Chloride Level ROMAN ([facility]) carbon dioxide level 16 mEq/L 21-32 Below low normal Carbon Di oxide Level ROMAN ([facility]) anion gap 16 mEq/L 8-16 Anion Gap ROMAN ([facility]) calcium level 8.3 mg/dL 8.5-10.1 Below low normal Calcium Level AT [facility]) ID Date Data Source [id number] 03/18/2020 01:02:00 AM EST HEXT ([facility]) Name Value Range Interpretation Code Description Data Kaye rce(s) Supporting Document(s) glucose, fasting 292 mg/dL 70-100 Above high normal Glucose, Fas ting HEXT ([facility]) blood urea nitrogen 36 mg/dL 7-18 Above high normal Blood Ure a Nitrogen HEXT ([facility]) creatinine for GFR 1.39 mg/dL 0.55-1.30 Above high normal Creatinine for GFR HEXT ([facility]) sodium level 138 mEq/L 136-145 Sodium Level ROMAN ([facility]) glomerular filtration rate >58 Below low normal Beata merular Filtration Rate HEXT ([facility]) potassium serum 4.3 mEq/L 3.5-5.1 Potassium Serum ATH NA ([facility]) chloride level 106 mEq/L 98-107 Chloride Level HEXT ([facility]) carbon dioxide level 16 mEq/L 21-32 Below low normal Carbon Di oxide Level HEXT ([facility]) anion gap 16 mEq/L 8-16 Anion Gap ROMAN ([facility]) calcium level 8.3 mg/dL 8.5-10.1 Below low normal Calcium Level AT [facility] ([facility]) ID Date Data Source [id number] 03/18/2020 01:02:00 AM EST HEXT ([facility]) Name Value Range Interpretation Code Description Data Kaye rce(s) Supporting Document(s) glucose, fasting 292 mg/dL 70-100 Above high normal Glucose, Fas ting HEXT ([facility]) blood urea nitrogen 36 mg/dL 7-18 Above high normal Blood Ure a Nitrogen ROMAN ([facility]) glomerular filtration rate >58 Below low normal Beata merular Filtration Rate ROMAN ([facility]) creatinine for GFR 1.39 mg/dL 0.55-1.30 Above high normal Creatinine for GFR ROMAN ([facility]) potassium serum 4.3 mEq/L 3.5-5.1 Potassium Serum ATHE NA ([facility]) sodium level 138 mEq/L 136-145 Sodium Level ROMAN ([facility]) chloride level 106 mEq/L 98-107 Chloride Level ROMAN ([facility]) anion gap 16 mEq/L 8-16 Anion Gap ROMAN ([facility]) carbon dioxide level 16 mEq/L 21-32 Below low normal Carbon Di oxide Level ROMAN ([facility]) calcium level 8.3 mg/dL 8.5-10.1 Below low normal Calcium Level AT [facility] ([facility]) ID Date Data Source [id number] 03/18/2020 01:02:00 AM EST HEXT ([facility]) Name Value Range Interpretation Code Description Data Kaye rce(s) Supporting Document(s) glucose, fasting 292 mg/dL 70-100 Above high normal Glucose, Fas ting ROMAN ([facility]) blood urea nitrogen 36 mg/dL 7-18 Above high normal Blood Ure a Nitrogen ROMAN ([facility]) creatinine for GFR 1.39 mg/dL 0.55-1.30 Above high normal Creatinine for GFR ROMAN ([facility]) sodium level 138 mEq/L 136-145 Sodium Level ROMAN ([facility]) glomerular filtration rate >58 Below low normal Beata merular Filtration Rate ROMAN ([facility]) potassium serum 4.3 mEq/L 3.5-5.1 Potassium Serum ATHE NA ([facility]) chloride level 106 mEq/L 98-107 Chloride Level ROMAN ([facility]) carbon dioxide level 16 mEq/L 21-32 Below low normal Carbon Di oxide Level ROMAN ([facility]) anion gap 16 mEq/L 8-16 Anion Gap ROMAN ([facility]) calcium level 8.3 mg/dL 8.5-10.1 Below low normal Calcium Level AT [facility]) ID Date Data Source [id number] 03/18/2020 01:02:00 AM EST ROMAN ([facility]) Name Value Range Interpretation Code Description Data Kaye rce(s) Supporting Document(s) glucose, fasting 292 mg/dL 70-100 Above high normal Glucose, Fas ting HEXT ([facility]) creatinine for GFR 1.39 mg/dL 0.55-1.30 Above high normal Creatinine for GFR ROMAN ([facility]) blood urea nitrogen 36 mg/dL 7-18 Above high normal Blood Ure a Nitrogen ROMAN ([facility]) glomerular filtration rate >58 Below low normal Beata merular Filtration Rate HEXT ([facility]) potassium serum 4.3 mEq/L 3.5-5.1 Potassium Serum ATH NA ([facility]) sodium level 138 mEq/L 136-145 Sodium Level HEXT ([facility]) chloride level 106 mEq/L 98-107 Chloride Level HEXT ([facility]) carbon dioxide level 16 mEq/L 21-32 Below low normal Carbon Di oxide Level HEXT ([facility]) anion gap 16 mEq/L 8-16 Anion Gap HEXT ([facility]) calcium level 8.3 mg/dL 8.5-10.1 Below low normal Calcium Level AT [facility]) ID Date Data Source [id number] 03/18/2020 01:02:00 AM EST ROMAN ([facility]) Name Value Range Interpretation Code Description Data Kaye rce(s) Supporting Document(s) glucose, fasting 292 mg/dL 70-100 Above high normal Glucose, Fas ting HEXT ([facility]) blood urea nitrogen 36 mg/dL 7-18 Above high normal [facility] creatinine for GFR 1.39 mg/dL 0.55-1.30 Above high normal Creatinine for GFR ROMAN ([facility]) glomerular filtration rate >58 Below low normal Beata merular Filtration Rate ROMAN ([facility]) potassium serum 4.3 mEq/L 3.5-5.1 Potassium Serum ATHE NA ([facility]) sodium level 138 mEq/L 136-145 Sodium Level ROMAN ([facility]) chloride level 106 mEq/L 98-107 Chloride Level ROMAN ([facility]) carbon dioxide level 16 mEq/L 21-32 Below low normal Carbon Di oxide Level ROMAN ([facility]) anion gap 16 mEq/L 8-16 Anion Gap ROMAN ([facility]) calcium level 8.3 mg/dL 8.5-10.1 Below low normal Calcium Level AT [facility] ([facility]) ID Date Data Source [id number] 03/18/2020 12:00:00 AM EST [facility]) Name Value Range Interpretation Code Description Data Kaye rce(s) Supporting Document(s) bedside glucose 282 mg/dL 70-105 Above high normal Bedside Gluco se [facility]) ID Date Data Source [id number] 03/18/2020 12:00:00 AM EST [facility]) Name Value Range Interpretation Code Description Data Kaye rce(s) Supporting Document(s) bedside glucose 282 mg/dL 70-105 Above high normal Bedside Gluco se [facility]) ID Date Data Source [id number] 03/18/2020 12:00:00 AM [facility] Name Value Range Interpretation Code Description Data Kaye rce(s) Supporting Document(s) bedside glucose 282 mg/dL 70-105 Above high normal Bedside Gluco se [facility]) ID Date Data Source [id number] 03/18/2020 12:00:00 AM EST [facility]) Name Value Range Interpretation Code Description Data Kaye rce(s) Supporting Document(s) bedside glucose 282 mg/dL 70-105 Above high normal Bedside Gluco se ROMAN ([facility]) ID Date Data Source [id number] 03/18/2020 12:00:00 AM EST ROMAN ([facility]) Name Value Range Interpretation Code Description Data Kaye rce(s) Supporting Document(s) bedside glucose 282 mg/dL 70-105 Above high normal Bedside Gluco se ROMAN ([facility]) ID Date Data Source [id number] 03/18/2020 12:00:00 AM EST [facility]AN ([facility]) Name Value Range Interpretation Code Description Data Kaye rce(s) Supporting Document(s) bedside glucose 282 mg/dL 70-105 Above high normal Bedside Gluco se ROMAN ([facility]) ID Date Data Source [id number] 03/17/2020 09:33:00 PM EST ROMAN ([facility]) Name Value Range Interpretation Code Description Data Kaye rce(s) Supporting Document(s) bedside glucose 227 mg/dL 70-105 Above high normal Bedside Gluco se ROMAN ([facility]) ID Date Data Source [id number] 03/17/2020 09:33:00 PM EST [facility]AN ([facility]) Name Value Range Interpretation Code Description Data Kaye rce(s) Supporting Document(s) bedside glucose 227 mg/dL 70-105 Above high normal Bedside Gluco se ROMAN ([facility]) ID Date Data Source [id number] 03/17/2020 09:33:00 PM EST [facility]AN ([facility]) Name Value Range Interpretation Code Description Data Kaye rce(s) Supporting Document(s) bedside glucose 227 mg/dL 70-105 Above high normal Bedside Gluco se ROMAN ([facility]) ID Date Data Source [id number] 03/17/2020 09:33:00 PM EST ROMAN ([facility]) Name Value Range Interpretation Code Description Data Kaye rce(s) Supporting Document(s) bedside glucose 227 mg/dL 70-105 Above high normal Bedside Gluco se ROMAN ([facility]) ID Date Data Source [id number] 03/17/2020 09:33:00 PM EST ROMAN ([facility]) Name Value Range Interpretation Code Description Data Kaye rce(s) Supporting Document(s) bedside glucose 227 mg/dL 70-105 Above high normal Bedside Gluco se [facility] ([facility]) ID Date Data Source [id number] 03/17/2020 09:33:00 PM EST [facility] ([facility]) Name Value Range Interpretation Code Description Data Kaye rce(s) Supporting Document(s) bedside glucose 227 mg/dL 70-105 Above high normal Bedside Gluco se [facility] ([facility]) ID Date Data Source [id number] 03/17/2020 08:43:00 PM EST [facility]) Name Value Range Interpretation Code Description Data Kaye rce(s) Supporting Document(s) sars covid-19 amplification negative negative Sars Cov id-19 Amplification [facility]) ID Date Data Source [id number] 03/17/2020 08:43:00 PM EST [facility] ([facility]) Name Value Range Interpretation Code Description Data Kaye rce(s) Supporting Document(s) sars covid-19 amplification negative negative Sars Cov id-19 Amplification [facility]) ID Date Data Source [id number] 03/17/2020 08:43:00 PM EST [facility]) Name Value Range Interpretation Code Description Data Kaye rce(s) Supporting Document(s) sars covid-19 amplification negative negative Sars Cov id-19 Amplification [facility]) ID Date Data Source [id number] 03/17/2020 08:43:00 PM EST [facility] ([facility]) Name Value Range Interpretation Code Description Data Kaye rce(s) Supporting Document(s) sars covid-19 amplification negative negative Sars Cov id-19 Amplification [facility]) ID Date Data Source [id number] 03/17/2020 08:43:00 PM EST [facility] ([facility]) Name Value Range Interpretation Code Description Data Kaye rce(s) Supporting Document(s) sars covid-19 amplification negative negative Sars Cov id-19 Amplification [facility]) ID Date Data Source [id number] 03/17/2020 08:43:00 PM EST [facility]) Name Value Range Interpretation Code Description Data Kaye rce(s) Supporting Document(s) sars covid-19 amplification negative negative Sars Cov id-19 Amplification [facility]) ID Date Data Source [id number] 03/17/2020 08:43:00 PM EST [facility] Name Value Range Interpretation Code Description Data Kaye rce(s) Supporting Document(s) SARS coronavirus 2 RNA [Presence] in Res piratory specimen by SULY with probe detection [facility] This lab was ordered by [facility] a nd reported by [facility]. ID Date Data Source [id number] 03/17/2020 07:07:00 PM EST [facility]) Name Value Range Interpretation Code Description Data Kaye rce(s) Supporting Document(s) bedside glucose 195 mg/dL 70-105 Above high normal Bedside Gluco se [facility]) ID Date Data Source [id number] 03/17/2020 07:07:00 PM EST [facility]) Name Value Range Interpretation Code Description Data Kaye rce(s) Supporting Document(s) bedside glucose 195 mg/dL 70-105 Above high normal Bedside Gluco se [facility] ([facility]) ID Date Data Source [id number] 03/17/2020 07:07:00 PM EST [facility] ([facility]) Name Value Range Interpretation Code Description Data Kaye rce(s) Supporting Document(s) bedside glucose 195 mg/dL 70-105 Above high normal Bedside Gluco se [facility] ([facility]) ID Date Data Source [id number] 03/17/2020 07:07:00 PM EST [facility] ([facility]) Name Value Range Interpretation Code Description Data Kaye rce(s) Supporting Document(s) bedside glucose 195 mg/dL 70-105 Above high normal Bedside Gluco se [facility] ([facility]) ID Date Data Source [id number] 03/17/2020 07:07:00 PM EST [facility] ([facility]) Name Value Range Interpretation Code Description Data Kaye rce(s) Supporting Document(s) bedside glucose 195 mg/dL 70-105 Above high normal Bedside Gluco se [facility] ([facility]) ID Date Data Source [id number] 03/17/2020 07:07:00 PM EST [facility] ([facility]) Name Value Range Interpretation Code Description Data Kaye rce(s) Supporting Document(s) bedside glucose 195 mg/dL 70-105 Above high normal Bedside Gluco se [facility] ([facility]) ID Date Data Source [id number] 03/17/2020 06:47:00 PM EST [facility] ([facility]) Name Value Range Interpretation Code Description Data Kaye rce(s) Supporting Document(s) glucose, fasting 224 mg/dL 70-100 Above high normal Glucose, Fas ting [facility] ([facility]) blood urea nitrogen 39 mg/dL 7-18 Above high normal Blood Ure a Nitrogen [facility] ([facility]) creatinine for GFR 1.46 mg/dL 0.55-1.30 Above high normal Creatinine for GFR [facility] ([facility]) glomerular filtration rate >58 Below low normal Beata merular Filtration Rate [facility] ([facility]) sodium level 141 mEq/L 136-145 Sodium Level [facility] ([facility]) potassium serum 3.6 mEq/L 3.5-5.1 Potassium Serum ATHE NA ([facility]) chloride level 108 mEq/L 98-107 Above high normal Chloride Level [facility] ([facility]) carbon dioxide level 20 mEq/L 21-32 Below low normal Carbon Di oxide Level [facility] ([facility]) calcium level 7.6 mg/dL 8.5-10.1 Below low normal Calcium Level AT [facility] ([facility]) anion gap 13 mEq/L 8-16 Anion Gap [facility] ([facility]) ID Date Data Source [id number] 03/17/2020 06:47:00 PM EST [facility] ([facility]) Name Value Range Interpretation Code Description Data Kaye rce(s) Supporting Document(s) glucose, fasting 224 mg/dL 70-100 Above high normal Glucose, Fas ting [facility] ([facility]) blood urea nitrogen 39 mg/dL 7-18 Above high normal Blood Ure a Nitrogen [facility] ([facility]) glomerular filtration rate >58 Below low normal Beata merular Filtration Rate [facility] ([facility]) creatinine for GFR 1.46 mg/dL 0.55-1.30 Above high normal Creatinine for GFR [facility] ([facility]) sodium level 141 mEq/L 136-145 Sodium Level [facility] ([facility]) chloride level 108 mEq/L 98-107 Above high normal Chloride Level [facility] ([facility]) potassium serum 3.6 mEq/L 3.5-5.1 Potassium Serum ATHE NA ([facility]) carbon dioxide level 20 mEq/L 21-32 Below low normal Carbon Di oxide Level [facility] ([facility]) calcium level 7.6 mg/dL 8.5-10.1 Below low normal Calcium Level AT [facility]) anion gap 13 mEq/L 8-16 Anion Gap [facility] ([facility]) ID Date Data Source [id number] 03/17/2020 06:47:00 PM EST [facility] ([facility]) Name Value Range Interpretation Code Description Data Kaye rce(s) Supporting Document(s) blood urea nitrogen 39 mg/dL 7-18 Above high normal Blood Ure a Nitrogen [facility] ([facility]) glucose, fasting 224 mg/dL 70-100 Above high normal Glucose, Fas ting [facility] ([facility]) creatinine for GFR 1.46 mg/dL 0.55-1.30 Above high normal Creatinine for GFR [facility] ([facility]) glomerular filtration rate >58 Below low normal Beata merular Filtration Rate [facility]AMN ([facility]) sodium level 141 mEq/L 136-145 Sodium Level [facility] ([facility]) potassium serum 3.6 mEq/L 3.5-5.1 Potassium Serum ATH NA ([facility]) carbon dioxide level 20 mEq/L 21-32 Below low normal Carbon Di oxide Level ROMAN ([facility]) chloride level 108 mEq/L 98-107 Above high normal Chloride Level [facility] ([facility]) calcium level 7.6 mg/dL 8.5-10.1 Below low normal Calcium Level AT [facility] ([facility]) anion gap 13 mEq/L 8-16 Anion Gap [facility] ([facility]) ID Date Data Source [id number] 03/17/2020 06:47:00 PM EST [facility] ([facility]) Name Value Range Interpretation Code Description Data Kaye rce(s) Supporting Document(s) blood urea nitrogen 39 mg/dL 7-18 Above high normal Blood Ure a Nitrogen [facility] ([facility]) glucose, fasting 224 mg/dL 70-100 Above high normal Glucose, Fas ting [facility] ([facility]) creatinine for GFR 1.46 mg/dL 0.55-1.30 Above high normal Creatinine for GFR [facility] ([facility]) glomerular filtration rate >58 Below low normal Beata merular Filtration Rate ROM[facility] ([facility]) sodium level 141 mEq/L 136-145 Sodium Level [facility] ([facility]) potassium serum 3.6 mEq/L 3.5-5.1 Potassium Serum ATHE NA ([facility]) carbon dioxide level 20 mEq/L 21-32 Below low normal Carbon Di oxide Level ROMAN ([facility]) chloride level 108 mEq/L 98-107 Above high normal Chloride Level [facility] ([facility]) anion gap 13 mEq/L 8-16 Anion Gap [facility] ([facility]) calcium level 7.6 mg/dL 8.5-10.1 Below low normal Calcium Level AT [facility]) ID Date Data Source [id number] 03/17/2020 06:47:00 PM EST [facility] ([facility]) Name Value Range Interpretation Code Description Data Kaye rce(s) Supporting Document(s) blood urea nitrogen 39 mg/dL 7-18 Above high normal Blood Ure a Nitrogen [facility] ([facility]) glucose, fasting 224 mg/dL 70-100 Above high normal Glucose, Fas ting [facility] ([facility]) glomerular filtration rate >58 Below low normal Beata merular Filtration Rate [facility] ([facility]) creatinine for GFR 1.46 mg/dL 0.55-1.30 Above high normal Creatinine for GFR [facility] ([facility]) potassium serum 3.6 mEq/L 3.5-5.1 Potassium Serum ATHE NA ([facility]) sodium level 141 mEq/L 136-145 Sodium Level [facility] ([facility]) chloride level 108 mEq/L 98-107 Above high normal Chloride Level [facility] ([facility]) carbon dioxide level 20 mEq/L 21-32 Below low normal Carbon Di oxide Level [facility] ([facility]) anion gap 13 mEq/L 8-16 Anion Gap [facility] ([facility]) calcium level 7.6 mg/dL 8.5-10.1 Below low normal Calcium Level AT [facility]) ID Date Data Source [id number] 03/17/2020 06:47:00 PM EST [facility] ([facility]) Name Value Range Interpretation Code Description Data Kaye rce(s) Supporting Document(s) glucose, fasting 224 mg/dL 70-100 Above high normal Glucose, Fas ting [facility] ([facility]) blood urea nitrogen 39 mg/dL 7-18 Above high normal Blood Ure a Nitrogen [facility] ([facility]) creatinine for GFR 1.46 mg/dL 0.55-1.30 Above high normal Creatinine for GFR [facility] ([facility]) glomerular filtration rate >58 Below low normal Beata merular Filtration Rate [facility] ([facility]) sodium level 141 mEq/L 136-145 Sodium Level [facility] ([facility]) potassium serum 3.6 mEq/L 3.5-5.1 Potassium Serum ATH NA ([facility]) chloride level 108 mEq/L 98-107 Above high normal Chloride Level [facility] ([facility]) carbon dioxide level 20 mEq/L 21-32 Below low normal Carbon Di oxide Level [facility] ([facility]) anion gap 13 mEq/L 8-16 Anion Gap [facility] ([facility]) calcium level 7.6 mg/dL 8.5-10.1 Below low normal Calcium Level AT [facility] ([facility]) ID Date Data Source [id number] 03/17/2020 05:19:00 PM EST [facility] ([facility]) Name Value Range Interpretation Code Description Data Kaye rce(s) Supporting Document(s) bedside glucose 329 mg/dL 70-105 Above high normal Bedside Gluco se [facility] ([facility]) ID Date Data Source [id number] 03/17/2020 05:19:00 PM EST [facility] ([facility]) Name Value Range Interpretation Code Description Data Kaye rce(s) Supporting Document(s) bedside glucose 329 mg/dL 70-105 Above high normal Bedside Gluco se [facility]) ID Date Data Source [id number] 03/17/2020 05:19:00 PM EST [facility] ([facility]) Name Value Range Interpretation Code Description Data Kaye rce(s) Supporting Document(s) bedside glucose 329 mg/dL 70-105 Above high normal Bedside Gluco se [facility] ([facility]) ID Date Data Source [id number] 03/17/2020 05:19:00 PM EST [facility] ([facility]) Name Value Range Interpretation Code Description Data Kaye rce(s) Supporting Document(s) bedside glucose 329 mg/dL 70-105 Above high normal Bedside Gluco se [facility]) ID Date Data Source [id number] 03/17/2020 05:19:00 PM EST [facility] ([facility]) Name Value Range Interpretation Code Description Data Kaye rce(s) Supporting Document(s) bedside glucose 329 mg/dL 70-105 Above high normal Bedside Gluco se [facility] ([facility]) ID Date Data Source [id number] 03/17/2020 05:19:00 PM EST [facility]AN ([facility]) Name Value Range Interpretation Code Description Data Kaye rce(s) Supporting Document(s) bedside glucose 329 mg/dL 70-105 Above high normal Bedside Gluco se [facility] ([facility]) ID Date Data Source [id number] 02/19/2020 11:50:00 AM EST [facility]AN ([facility]) Name Value Range Interpretation Code Description Data Kaye rce(s) Supporting Document(s) bedside glucose 180 mg/dL 70-105 Above high normal [facility] Date Data Source [id number] 02/19/2020 11:50:00 AM [facility] Name Value Range Interpretation Code Description Data Akye rce(s) Supporting Document(s) bedside glucose 180 mg/dL 70-105 Above high normal Bedside Gluco se [facility] ([facility]) ID Date Data Source [id number] 02/19/2020 11:50:00 AM EST [facility]AN ([facility]) Name Value Range Interpretation Code Description Data Kaye rce(s) Supporting Document(s) bedside glucose 180 mg/dL 70-105 Above high normal Bedside Gluco se [facility] ([facility]) ID Date Data Source [id number] 02/19/2020 11:50:00 AM EST [facility]AN ([facility]) Name Value Range Interpretation Code Description Data Kaye rce(s) Supporting Document(s) bedside glucose 180 mg/dL 70-105 Above high normal Bedside Gluco se [facility] ([facility]) ID Date Data Source [id number] 02/19/2020 11:50:00 AM EST [facility]AN ([facility]) Name Value Range Interpretation Code Description Data Kaye rce(s) Supporting Document(s) bedside glucose 180 mg/dL 70-105 Above high normal Bedside Gluco se [facility] ([facility]) ID Date Data Source [id number] 02/19/2020 11:50:00 AM EST ROMAN [facility]) Name Value Range Interpretation Code Description Data Kaye rce(s) Supporting Document(s) bedside glucose 180 mg/dL 70-105 Above high normal Bedside Gluco se [facility] ([facility]) ID Date Data Source [id number] 02/19/2020 11:50:00 AM EST [facility]AN ([facility]) Name Value Range Interpretation Code Description Data Kaye rce(s) Supporting Document(s) bedside glucose 180 mg/dL 70-105 Above high normal [facility] ID Date Data Source [id number] 02/19/2020 04:20:00 AM EST [facility]AN ([facility]) Name Value Range Interpretation Code Description Data Kaye rce(s) Supporting Document(s) blood urea nitrogen 21 mg/dL 7-18 Above high normal Blood Ure a Nitrogen [facility] ([facility]) glucose, fasting 139 mg/dL 70-100 Above high normal Glucose, Fas ting [facility] ([facility]) creatinine for GFR 1.14 mg/dL 0.55-1.30 Creatinine for GF R [facility] ([facility]) glomerular filtration rate > 60.0 >58 Glomerula r Filtration Rate [facility] ([facility]) sodium level 138 mEq/L 136-145 Sodium Level [facility] ([facility]) potassium serum 3.6 mEq/L 3.5-5.1 Potassium Serum [facility] ([facility]) chloride level 109 mEq/L 98-107 Above high normal Chloride Level [facility] ([facility]) anion gap 4 mEq/L 8-16 Below low normal Anion Gap [facility] ( [facility]) carbon dioxide level 25 mEq/L 21-32 Carbon Dioxide Level [facility] ([facility]) calcium level 8.4 mg/dL 8.5-10.1 Below low normal Calcium Level AT [facility] ([facility]) ID Date Data Source [id number] 02/19/2020 04:20:00 AM EST [facility] ([facility]) Name Value Range Interpretation Code Description Data Kaye rce(s) Supporting Document(s) white blood count 5.8 10 4.0-10.0 White Blood Count [facility] ([facility]) red blood count 3.11 10 4.00-5.40 Below low normal Red Blood Coun t ROMAN ([facility]) hematocrit 26.6 % 36.0-47.0 Below low normal Hematocrit [facility] ( [facility]) hemoglobin 8.5 g/dL 12.0-15.5 Below low normal Hemoglobin [facility] ( [facility]) mean corpuscular volume 85.5 fL 80.0-96.0 Mean Corpusc ular Volume [facility] ([facility]) mean corpuscular hemoglobin 27.3 pg 27.0-33.0 Mean Cor puscular Hemoglobin [facility] ([facility]) mean corpuscular HGB conc 32.0 g/dL 32.0-36.5 Mean Corpu scular HGB Conc [facility] ([facility]) red cell distribution width 14.7 % 11.5-14.5 Above high no rmal Red Cell Distribution Width [facility] ([facility]) platelet count, automated 256 10 150-450 Platelet C ount, Automated [facility] ([facility]) nucleated red blood cell % 0.0 % 0-0 Nucleated Red Blood Cell % [facility] ([facility]) ID Date Data Source [id number] 02/19/2020 04:20:00 AM EST [facility] ([facility]) Name Value Range Interpretation Code Description Data Kaye rce(s) Supporting Document(s) glucose, fasting 139 mg/dL 70-100 Above high normal Glucose, Fas ting [facility] ([facility]) blood urea nitrogen 21 mg/dL 7-18 Above high normal Blood Ure a Nitrogen [facility] ([facility]) glomerular filtration rate > 60.0 >58 Glomerula r Filtration Rate [facility] ([facility]) creatinine for GFR 1.14 mg/dL 0.55-1.30 Creatinine for GF R [facility]AN ([facility]) sodium level 138 mEq/L 136-145 Sodium Level [facility] ([facility]) potassium serum 3.6 mEq/L 3.5-5.1 Potassium Serum ATH NA ([facility]) chloride level 109 mEq/L 98-107 Above high normal Chloride Level [facility] ([facility]) anion gap 4 mEq/L 8-16 Below low normal Anion Gap [facility] ( [facility]) carbon dioxide level 25 mEq/L 21-32 Carbon Dioxide Level [facility] ([facility]) calcium level 8.4 mg/dL 8.5-10.1 Below low normal Calcium Level AT [facility]) ID Date Data Source [id number] 02/19/2020 04:20:00 AM EST [facility]AN ([facility]) Name Value Range Interpretation Code Description Data Kaye rce(s) Supporting Document(s) white blood count 5.8 10 4.0-10.0 White Blood Count [facility] ([facility]) red blood count 3.11 10 4.00-5.40 Below low normal Red Blood Coun t [facility] ([facility]) hemoglobin 8.5 g/dL 12.0-15.5 Below low normal Hemoglobin [facility] ( [facility]) hematocrit 26.6 % 36.0-47.0 Below low normal Hematocrit [facility] ( [facility]) mean corpuscular volume 85.5 fL 80.0-96.0 Mean Corpusc ular Volume [facility] ([facility]) mean corpuscular HGB conc 32.0 g/dL 32.0-36.5 Mean Corpu scular HGB Conc [facility] ([facility]) mean corpuscular hemoglobin 27.3 pg 27.0-33.0 Mean Cor puscular Hemoglobin [facility] ([facility]) red cell distribution width 14.7 % 11.5-14.5 Above high no rmal Red Cell Distribution Width [facility] ([facility]) platelet count, automated 256 10 150-450 Platelet C ount, Automated [facility] ([facility]) nucleated red blood cell % 0.0 % 0-0 Nucleated Red Blood Cell % [facility] ([facility]) ID Date Data Source [id number] 02/19/2020 04:20:00 AM EST [facility] ([facility]) Name Value Range Interpretation Code Description Data Kaye rce(s) Supporting Document(s) glucose, fasting 139 mg/dL 70-100 Above high normal Glucose, Fas ting [facility] ([facility]) blood urea nitrogen 21 mg/dL 7-18 Above high normal Blood Ure a Nitrogen [facility] ([facility]) glomerular filtration rate > 60.0 >58 Glomerula r Filtration Rate [facility] ([facility]) creatinine for GFR 1.14 mg/dL 0.55-1.30 Creatinine for GF R [facility] ([facility]) sodium level 138 mEq/L 136-145 Sodium Level [facility] ([facility]) potassium serum 3.6 mEq/L 3.5-5.1 Potassium Serum ATHE NA ([facility]) chloride level 109 mEq/L 98-107 Above high normal Chloride Level [facility] ([facility]) anion gap 4 mEq/L 8-16 Below low normal Anion Gap [facility] ( [facility]) carbon dioxide level 25 mEq/L 21-32 Carbon Dioxide Level [facility] ([facility]) calcium level 8.4 mg/dL 8.5-10.1 Below low normal Calcium Level AT [facility]) ID Date Data Source [id number] 02/19/2020 04:20:00 AM EST [facility] ([facility]) Name Value Range Interpretation Code Description Data Kaye rce(s) Supporting Document(s) white blood count 5.8 10 4.0-10.0 White Blood Count [facility] ([facility]) red blood count 3.11 10 4.00-5.40 Below low normal Red Blood Coun t [facility] ([facility]) hemoglobin 8.5 g/dL 12.0-15.5 Below low normal Hemoglobin [facility] ( [facility]) mean corpuscular volume 85.5 fL 80.0-96.0 Mean Corpusc ular Volume [facility] ([facility]) hematocrit 26.6 % 36.0-47.0 Below low normal Hematocrit [facility] ( [facility]) mean corpuscular hemoglobin 27.3 pg 27.0-33.0 Mean Cor puscular Hemoglobin [facility] ([facility]) red cell distribution width 14.7 % 11.5-14.5 Above high no rmal Red Cell Distribution Width [facility] ([facility]) mean corpuscular HGB conc 32.0 g/dL 32.0-36.5 Mean Corpu scular HGB Conc [facility] ([facility]) platelet count, automated 256 10 150-450 Platelet C ount, Automated [facility] ([facility]) nucleated red blood cell % 0.0 % 0-0 Nucleated Red Blood Cell % [facility] ([facility]) ID Date Data Source [id number] 02/19/2020 04:20:00 AM [facility] ([facility]) Name Value Range Interpretation Code Description Data Akye rce(s) Supporting Document(s) blood urea nitrogen 21 mg/dL 7-18 Above high normal Blood Ure a Nitrogen [facility] ([facility]) glucose, fasting 139 mg/dL 70-100 Above high normal Glucose, Fas ting [facility] ([facility]) glomerular filtration rate > 60.0 >58 Glomerula r Filtration Rate [facility] ([facility]) creatinine for GFR 1.14 mg/dL 0.55-1.30 Creatinine for GF R [facility] ([facility]) sodium level 138 mEq/L 136-145 Sodium Level [facility] ([facility]) potassium serum 3.6 mEq/L 3.5-5.1 Potassium Serum ATH NA ([facility]) carbon dioxide level 25 mEq/L 21-32 Carbon Dioxide Level [facility] ([facility]) chloride level 109 mEq/L 98-107 Above high normal Chloride Level [facility] ([facility]) anion gap 4 mEq/L 8-16 Below low normal Anion Gap [facility] ( [facility]) calcium level 8.4 mg/dL 8.5-10.1 Below low normal Calcium Level AT [facility] ([facility]) ID Date Data Source [id number] 02/19/2020 04:20:00 AM EST [facility] ([facility]) Name Value Range Interpretation Code Description Data Kaye rce(s) Supporting Document(s) white blood count 5.8 10 4.0-10.0 White Blood Count [facility] ([facility]) red blood count 3.11 10 4.00-5.40 Below low normal Red Blood Coun t [facility] ([facility]) hematocrit 26.6 % 36.0-47.0 Below low normal Hematocrit [facility] ( [facility]) hemoglobin 8.5 g/dL 12.0-15.5 Below low normal Hemoglobin [facility] ( [facility]) mean corpuscular volume 85.5 fL 80.0-96.0 Mean Corpusc ular Volume [facility] ([facility]) mean corpuscular HGB conc 32.0 g/dL 32.0-36.5 Mean Corpu scular HGB Conc [facility] ([facility]) mean corpuscular hemoglobin 27.3 pg 27.0-33.0 Mean Cor puscular Hemoglobin [facility] ([facility]) red cell distribution width 14.7 % 11.5-14.5 Above high no rmal Red Cell Distribution Width [facility] ([facility]) platelet count, automated 256 10 150-450 Platelet C ount, Automated [facility] ([facility]) nucleated red blood cell % 0.0 % 0-0 Nucleated Red Blood Cell % [facility] ([facility]) ID Date Data Source [id number] 02/19/2020 04:20:00 AM EST [facility] ([facility]) Name Value Range Interpretation Code Description Data Kaye rce(s) Supporting Document(s) blood urea nitrogen 21 mg/dL 7-18 Above high normal Blood Ure a Nitrogen [facility] ([facility]) glucose, fasting 139 mg/dL 70-100 Above high normal Glucose, Fas ting [facility] ([facility]) creatinine for GFR 1.14 mg/dL 0.55-1.30 Creatinine for GF R HEXT ([facility]) glomerular filtration rate > 60.0 >58 Glomerula r Filtration Rate ROMAN ([facility]) potassium serum 3.6 mEq/L 3.5-5.1 Potassium Serum ATHE NA ([facility]) sodium level 138 mEq/L 136-145 Sodium Level ROMAN ([facility]) chloride level 109 mEq/L 98-107 Above high normal Chloride Level ROMAN ([facility]) carbon dioxide level 25 mEq/L 21-32 Carbon Dioxide Level HEXT ([facility]) calcium level 8.4 mg/dL 8.5-10.1 Below low normal Calcium Level AT TRAM [facility]) anion gap 4 mEq/L 8-16 Below low normal Anion Gap HEXT ( [facility]) ID Date Data Source [id number] 02/19/2020 04:20:00 AM EST ROMAN ([facility]) Name Value Range Interpretation Code Description Data Kaye rce(s) Supporting Document(s) white blood count 5.8 10 4.0-10.0 White Blood Count HEXT ([facility]) red blood count 3.11 10 4.00-5.40 Below low normal Red Blood Coun t HEXT ([facility]) hematocrit 26.6 % 36.0-47.0 Below low normal Hematocrit HEXT ( [facility]) hemoglobin 8.5 g/dL 12.0-15.5 Below low normal Hemoglobin HEXT ( [facility]) mean corpuscular volume 85.5 fL 80.0-96.0 Mean Corpusc ular Volume HEXT ([facility]) mean corpuscular hemoglobin 27.3 pg 27.0-33.0 Mean Cor puscular Hemoglobin HEXT ([facility]) mean corpuscular HGB conc 32.0 g/dL 32.0-36.5 Mean Corpu scular HGB Conc HEXT ([facility]) red cell distribution width 14.7 % 11.5-14.5 Above high no rmal Red Cell Distribution Width HEXT ([facility]) platelet count, automated 256 10 150-450 Platelet C ount, Automated HEXT ([facility]) nucleated red blood cell % 0.0 % 0-0 Nucleated Red Blood Cell % HEXT ([facility]) ID Date Data Source [id number] 02/19/2020 04:20:00 AM EST ROMAN ([facility]) Name Value Range Interpretation Code Description Data Kaye rce(s) Supporting Document(s) glucose, fasting 139 mg/dL 70-100 Above high normal Glucose, Fas ting HEXT ([facility]) blood urea nitrogen 21 mg/dL 7-18 Above high normal Blood Ure a Nitrogen [facility]) creatinine for GFR 1.14 mg/dL 0.55-1.30 Creatinine for GF R HEXT ([facility]) sodium level 138 mEq/L 136-145 Sodium Level ROMAN (No [facility]) glomerular filtration rate > 60.0 >58 Glomerula r Filtration Rate ROMAN ([facility]) potassium serum 3.6 mEq/L 3.5-5.1 Potassium Serum ATHE NA ([facility]) chloride level 109 mEq/L 98-107 Above high normal Chloride Level ROMAN ([facility]) anion gap 4 mEq/L 8-16 Below low normal Anion Gap ROMAN ( [facility]) carbon dioxide level 25 mEq/L 21-32 Carbon Dioxide Level ROMAN ([facility]) calcium level 8.4 mg/dL 8.5-10.1 Below low normal Calcium Level AT [facility]) ID Date Data Source [id number] 02/19/2020 04:20:00 AM EST [facility]) Name Value Range Interpretation Code Description Data Kaye rce(s) Supporting Document(s) white blood count 5.8 10 4.0-10.0 White Blood Count ROMAN ([facility]) red blood count 3.11 10 4.00-5.40 Below low normal Red Blood Coun t ROMAN ([facility]) hemoglobin 8.5 g/dL 12.0-15.5 Below low normal Hemoglobin ROMAN ( [facility]) hematocrit 26.6 % 36.0-47.0 Below low normal Hematocrit ROMAN ( [facility]) mean corpuscular volume 85.5 fL 80.0-96.0 Mean Corpusc ular Volume ROMAN ([facility]) mean corpuscular hemoglobin 27.3 pg 27.0-33.0 Mean Cor puscular Hemoglobin ROMAN ([facility]) mean corpuscular HGB conc 32.0 g/dL 32.0-36.5 Mean Corpu scular HGB Conc ROMAN ([facility]) red cell distribution width 14.7 % 11.5-14.5 Above high no rmal Red Cell Distribution Width ROMAN ([facility]) platelet count, automated 256 10 150-450 Platelet C ount, Automated ROMAN ([facility]) nucleated red blood cell % 0.0 % 0-0 Nucleated Red Blood Cell % ROMAN ([facility]) ID Date Data Source [id number] 02/19/2020 04:20:00 AM EST ROMAN ([facility]) Name Value Range Interpretation Code Description Data Kaye rce(s) Supporting Document(s) glucose, fasting 139 mg/dL 70-100 Above high normal Glucose, Fas ting ROMAN ([facility]) creatinine for GFR 1.14 mg/dL 0.55-1.30 Creatinine for GF R ROMAN ([facility]) blood urea nitrogen 21 mg/dL 7-18 Above high normal Blood Ure a Nitrogen HEXT ([facility]) glomerular filtration rate > 60.0 >58 Glomerula r Filtration Rate ROMAN ([facility]) sodium level 138 mEq/L 136-145 Sodium Level ROMAN (No [facility]) potassium serum 3.6 mEq/L 3.5-5.1 Potassium Serum ATHE NA ([facility]) carbon dioxide level 25 mEq/L 21-32 Carbon Dioxide Level ROMAN ([facility]) chloride level 109 mEq/L 98-107 Above high normal Chloride Level HEXT ([facility]) anion gap 4 mEq/L 8-16 Below low normal Anion Gap HEXT ( [facility]) calcium level 8.4 mg/dL 8.5-10.1 Below low normal Calcium Level AT TRAM ([facility]) ID Date Data Source [id number] 02/19/2020 04:20:00 AM EST HEXT ([facility]) Name Value Range Interpretation Code Description Data Kaye rce(s) Supporting Document(s) white blood count 5.8 10 4.0-10.0 White Blood Count HEXT ([facility]) red blood count 3.11 10 4.00-5.40 Below low normal Red Blood Coun t HEXT ([facility]) hemoglobin 8.5 g/dL 12.0-15.5 Below low normal Hemoglobin ROMAN ( [facility]) hematocrit 26.6 % 36.0-47.0 Below low normal Hematocrit ROMAN ( [facility]) mean corpuscular volume 85.5 fL 80.0-96.0 Mean Corpusc ular Volume ROMAN ([facility]) mean corpuscular hemoglobin 27.3 pg 27.0-33.0 Mean Cor puscular Hemoglobin ROMAN ([facility]) red cell distribution width 14.7 % 11.5-14.5 Above high no rmal Red Cell Distribution Width ROMAN ([facility]) mean corpuscular HGB conc 32.0 g/dL 32.0-36.5 Mean Corpu scular HGB Conc ROMAN ([facility]) platelet count, automated 256 10 150-450 Platelet C ount, Automated ROMAN ([facility]) nucleated red blood cell % 0.0 % 0-0 Nucleated Red Blood Cell % HEXT ([facility]) ID Date Data Source [id number] 02/18/2020 08:43:00 PM EST ROMAN ([facility]) Name Value Range Interpretation Code Description Data Kaye rce(s) Supporting Document(s) bedside glucose 67 mg/dL 70-105 Below low normal Bedside Glucos e ROMAN ([facility]) ID Date Data Source [id number] 02/18/2020 08:43:00 PM EST ROMAN ([facility]) Name Value Range Interpretation Code Description Data Kaye rce(s) Supporting Document(s) bedside glucose 67 mg/dL 70-105 Below low normal Bedside Glucos e ROMAN ([facility]) ID Date Data Source [id number] 02/18/2020 08:43:00 PM EST ROMAN ([facility]) Name Value Range Interpretation Code Description Data Kaye rce(s) Supporting Document(s) bedside glucose 67 mg/dL 70-105 Below low normal Bedside Glucos e ROMAN ([facility]) ID Date Data Source [id number] 02/18/2020 08:43:00 PM EST ROMAN ([facility]) Name Value Range Interpretation Code Description Data Kaye rce(s) Supporting Document(s) bedside glucose 67 mg/dL 70-105 Below low normal Bedside Glucos e ROMAN ([facility]) ID Date Data Source [id number] 02/18/2020 08:43:00 PM EST ROMAN ([facility]) Name Value Range Interpretation Code Description Data Kaye rce(s) Supporting Document(s) bedside glucose 67 mg/dL 70-105 Below low normal Bedside Glucos e ROMAN ([facility]) ID Date Data Source [id number] 02/18/2020 08:43:00 PM EST ROMAN ([facility]) Name Value Range Interpretation Code Description Data Kaye rce(s) Supporting Document(s) bedside glucose 67 mg/dL 70-105 Below low normal Bedside Glucos e ROMAN ([facility]) ID Date Data Source [id number] 02/18/2020 08:43:00 PM EST ROMAN ([facility]) Name Value Range Interpretation Code Description Data Kaye rce(s) Supporting Document(s) bedside glucose 67 mg/dL 70-105 Below low normal Bedside Glucos e ROMAN ([facility]) ID Date Data Source [id number] 02/18/2020 08:09:00 PM EST ROMAN ([facility]) Name Value Range Interpretation Code Description Data Kaye rce(s) Supporting Document(s) bedside glucose 40 mg/dL 70-105 Below low normal Bedside Glucos e ROMAN ([facility]) ID Date Data Source [id number] 02/18/2020 08:09:00 PM EST ROMAN ([facility]) Name Value Range Interpretation Code Description Data Kaye rce(s) Supporting Document(s) bedside glucose 40 mg/dL 70-105 Below low normal Bedside Glucos e ROMAN ([facility]) ID Date Data Source [id number] 02/18/2020 08:09:00 PM EST ROMAN ([facility]) Name Value Range Interpretation Code Description Data Kaye rce(s) Supporting Document(s) bedside glucose 40 mg/dL 70-105 Below low normal Bedside Glucos e ROMAN ([facility]) ID Date Data Source [id number] 02/18/2020 08:09:00 PM EST ROMAN ([facility]) Name Value Range Interpretation Code Description Data Kaye rce(s) Supporting Document(s) bedside glucose 40 mg/dL 70-105 Below low normal Bedside Glucos e ROMAN ([facility]) ID Date Data Source [id number] 02/18/2020 08:09:00 PM EST ROMAN ([facility]) Name Value Range Interpretation Code Description Data Kaye rce(s) Supporting Document(s) bedside glucose 40 mg/dL 70-105 Below low normal Bedside Glucos e ROMAN ([facility]) ID Date Data Source [id number] 02/18/2020 08:09:00 PM EST ROMAN ([facility]) Name Value Range Interpretation Code Description Data Kaye rce(s) Supporting Document(s) bedside glucose 40 mg/dL 70-105 Below low normal Bedside Glucos e ROMAN ([facility]) ID Date Data Source [id number] 02/18/2020 08:09:00 PM EST ROMAN ([facility]) Name Value Range Interpretation Code Description Data Kaye rce(s) Supporting Document(s) bedside glucose 40 mg/dL 70-105 Below low normal Bedside Glucos e ROMAN ([facility]) ID Date Data Source [id number] 02/18/2020 05:03:00 PM EST ROMAN ([facility]) Name Value Range Interpretation Code Description Data Kaye rce(s) Supporting Document(s) bedside glucose 112 mg/dL 70-105 Above high normal Bedside Gluco se ROMAN ([facility]) ID Date Data Source [id number] 02/18/2020 05:03:00 PM EST ROMAN ([facility]) Name Value Range Interpretation Code Description Data Kaye rce(s) Supporting Document(s) bedside glucose 112 mg/dL 70-105 Above high normal Bedside Gluco se ROMAN ([facility]) ID Date Data Source [id number] 02/18/2020 05:03:00 PM EST ROMAN ([facility]) Name Value Range Interpretation Code Description Data Kaye rce(s) Supporting Document(s) bedside glucose 112 mg/dL 70-105 Above high normal Bedside Gluco se ROMAN ([facility]) ID Date Data Source [id number] 02/18/2020 05:03:00 PM EST ROMAN ([facility]) Name Value Range Interpretation Code Description Data Kaye rce(s) Supporting Document(s) bedside glucose 112 mg/dL 70-105 Above high normal Bedside Gluco se ROMAN ([facility]) ID Date Data Source [id number] 02/18/2020 05:03:00 PM EST ROMAN ([facility]) Name Value Range Interpretation Code Description Data Kaye rce(s) Supporting Document(s) bedside glucose 112 mg/dL 70-105 Above high normal Bedside Gluco se ROMAN ([facility]) ID Date Data Source [id number] 02/18/2020 05:03:00 PM EST ROMAN ([facility]) Name Value Range Interpretation Code Description Data Kaye rce(s) Supporting Document(s) bedside glucose 112 mg/dL 70-105 Above high normal Bedside Gluco se ROMAN ([facility]) ID Date Data Source [id number] 02/18/2020 05:03:00 PM EST ROMAN ([facility]) Name Value Range Interpretation Code Description Data Kaye rce(s) Supporting Document(s) bedside glucose 112 mg/dL 70-105 Above high normal Bedside Gluco se ROMAN ([facility]) ID Date Data Source [id number] 02/18/2020 11:43:00 AM EST ROMAN ([facility]) Name Value Range Interpretation Code Description Data Kaye rce(s) Supporting Document(s) bedside glucose 199 mg/dL 70-105 Above high normal Bedside Gluco se ROMAN ([facility]) ID Date Data Source [id number] 02/18/2020 11:43:00 AM EST ROMAN ([facility]) Name Value Range Interpretation Code Description Data Kaye rce(s) Supporting Document(s) bedside glucose 199 mg/dL 70-105 Above high normal Bedside Gluco se ROMAN ([facility]) ID Date Data Source [id number] 02/18/2020 11:43:00 AM EST ROMAN ([facility]) Name Value Range Interpretation Code Description Data Kaye rce(s) Supporting Document(s) bedside glucose 199 mg/dL 70-105 Above high normal Bedside Gluco se ROMAN ([facility]) ID Date Data Source [id number] 02/18/2020 11:43:00 AM EST ROMAN ([facility]) Name Value Range Interpretation Code Description Data Kaye rce(s) Supporting Document(s) bedside glucose 199 mg/dL 70-105 Above high normal Bedside Gluco se ROMAN ([facility]) ID Date Data Source [id number] 02/18/2020 11:43:00 AM EST ROMAN ([facility]) Name Value Range Interpretation Code Description Data Kaye rce(s) Supporting Document(s) bedside glucose 199 mg/dL 70-105 Above high normal Bedside Gluco se ROMAN ([facility]) ID Date Data Source [id number] 02/18/2020 11:43:00 AM EST ROMAN ([facility]) Name Value Range Interpretation Code Description Data Kaye rce(s) Supporting Document(s) bedside glucose 199 mg/dL 70-105 Above high normal Bedside Gluco se ROMAN ([facility]) ID Date Data Source [id number] 02/18/2020 11:43:[facility] Name Value Range Interpretation Code Description Data Kaye rce(s) Supporting Document(s) bedside glucose 199 mg/dL 70-105 Above high normal Bedside Gluco se ROMAN ([facility]) ID Date Data Source [id number] 02/18/2020 10:22:00 AM EST [facility]) Name Value Range Interpretation Code Description Data Kaye rce(s) Supporting Document(s) bedside glucose 182 mg/dL 70-105 Above high normal [facility] Date Data Source [id number] 02/18/2020 10:22:00 AM EST ROMAN ([facility]) Name Value Range Interpretation Code Description Data Kaye rce(s) Supporting Document(s) bedside glucose 182 mg/dL 70-105 Above high normal [facility] Date Data Source [id number] 02/18/2020 10:22:00 AM [facility] Name Value Range Interpretation Code Description Data Kaye rce(s) Supporting Document(s) bedside glucose 182 mg/dL 70-105 Above high normal [facility] Date Data Source [id number] 02/18/2020 10:22:00 AM EST ROMAN ([facility]) Name Value Range Interpretation Code Description Data Kaye rce(s) Supporting Document(s) bedside glucose 182 mg/dL 70-105 Above high normal Bedside Gluco se ROMAN ([facility]) ID Date Data Source [id number] 02/18/2020 10:22:00 AM EST ROMAN ([facility]) Name Value Range Interpretation Code Description Data Kaye rce(s) Supporting Document(s) bedside glucose 182 mg/dL 70-105 Above high normal Bedside Gluco se ROMAN ([facility]) ID Date Data Source [id number] 02/18/2020 10:22:00 AM EST ROMAN ([facility]) Name Value Range Interpretation Code Description Data Kaye rce(s) Supporting Document(s) bedside glucose 182 mg/dL 70-105 Above high normal Bedside Gluco se ROMAN ([facility]) ID Date Data Source [id number] 02/18/2020 10:22:00 AM EST ROMAN ([facility]) Name Value Range Interpretation Code Description Data Kaye rce(s) Supporting Document(s) bedside glucose 182 mg/dL 70-105 Above high normal Bedside Gluco se ROMAN ([facility]) ID Date Data Source [id number] 02/18/2020 10:20:00 AM EST ROMAN ([facility]) Name Value Range Interpretation Code Description Data Kaye rce(s) Supporting Document(s) phosphorus level 1.4 mg/dL 2.5-4.9 Below low normal Phosphorus Le analia ROMAN ([facility]) ID Date Data Source [id number] 02/18/2020 10:20:00 AM EST ROMAN ([facility]) Name Value Range Interpretation Code Description Data Kaye rce(s) Supporting Document(s) glucose, fasting 199 mg/dL 70-100 Above high normal Glucose, Fas ting HEXT ([facility]) blood urea nitrogen 32 mg/dL 7-18 Above high normal Blood Ure a Nitrogen ROMAN ([facility]) creatinine for GFR 1.38 mg/dL 0.55-1.30 Above high normal Creatinine for GFR ROMAN ([facility]) glomerular filtration rate >58 Below low normal Beata merular Filtration Rate ROMAN ([facility]) potassium serum 3.8 mEq/L 3.5-5.1 Potassium Serum ATH NA ([facility]) sodium level 139 mEq/L 136-145 Sodium Level ROMAN (No [facility]) carbon dioxide level 25 mEq/L 21-32 Carbon Dioxide Level HEXT ([facility]) chloride level 109 mEq/L 98-107 Above high normal Chloride Level HEXT ([facility]) anion gap 5 mEq/L 8-16 Below low normal Anion Gap HEXT ( [facility]) calcium level 8.2 mg/dL 8.5-10.1 Below low normal Calcium Level AT [facility] ([facility]) ID Date Data Source [id number] 02/18/2020 10:20:00 AM EST ROMAN ([facility]) Name Value Range Interpretation Code Description Data Kaye rce(s) Supporting Document(s) phosphorus level 1.4 mg/dL 2.5-4.9 Below low normal Phosphorus Le analia HEXT ([facility]) ID Date Data Source [id number] 02/18/2020 10:20:00 AM EST HEXT ([facility]) Name Value Range Interpretation Code Description Data Kaye rce(s) Supporting Document(s) glucose, fasting 199 mg/dL 70-100 Above high normal Glucose, Fas ting HEXT ([facility]) blood urea nitrogen 32 mg/dL 7-18 Above high normal Blood Ure a Nitrogen ROMAN ([facility]) glomerular filtration rate >58 Below low normal Beata merular Filtration Rate ROMAN ([facility]) creatinine for GFR 1.38 mg/dL 0.55-1.30 Above high normal Creatinine for GFR ROMAN ([facility]) potassium serum 3.8 mEq/L 3.5-5.1 Potassium Serum ATHE NA ([facility]) sodium level 139 mEq/L 136-145 Sodium Level ROMAN (No [facility]) chloride level 109 mEq/L 98-107 Above high normal Chloride Level ROMAN ([facility]) carbon dioxide level 25 mEq/L 21-32 Carbon Dioxide Level ROMAN ([facility]) anion gap 5 mEq/L 8-16 Below low normal Anion Gap ROMAN ( [facility]) calcium level 8.2 mg/dL 8.5-10.1 Below low normal Calcium Level AT [facility] ([facility]) ID Date Data Source [id number] 02/18/2020 10:20:00 AM EST ROMAN ([facility]) Name Value Range Interpretation Code Description Data Kaye rce(s) Supporting Document(s) phosphorus level 1.4 mg/dL 2.5-4.9 Below low normal Phosphorus Le analia ROMAN ([facility]) ID Date Data Source [id number] 02/18/2020 10:20:00 AM EST ROMAN ([facility]) Name Value Range Interpretation Code Description Data Kaye rce(s) Supporting Document(s) blood urea nitrogen 32 mg/dL 7-18 Above high normal Blood Ure a Nitrogen ROMAN ([facility]) glucose, fasting 199 mg/dL 70-100 Above high normal Glucose, Fas ting ROMAN ([facility]) creatinine for GFR 1.38 mg/dL 0.55-1.30 Above high normal Creatinine for GFR ROMAN ([facility]) glomerular filtration rate >58 Below low normal Beata merular Filtration Rate ROMAN ([facility]) sodium level 139 mEq/L 136-145 Sodium Level ROMAN (No [facility]) chloride level 109 mEq/L 98-107 Above high normal Chloride Level ROMAN ([facility]) potassium serum 3.8 mEq/L 3.5-5.1 Potassium Serum ATHE NA ([facility]) anion gap 5 mEq/L 8-16 Below low normal Anion Gap ROMAN ( [facility]) carbon dioxide level 25 mEq/L 21-32 Carbon Dioxide Level ROMAN ([facility]) calcium level 8.2 mg/dL 8.5-10.1 Below low normal Calcium Level AT TRAM ([facility]) ID Date Data Source [id number] 02/18/2020 10:20:00 AM EST HEXT ([facility]) Name Value Range Interpretation Code Description Data Kaye rce(s) Supporting Document(s) phosphorus level 1.4 mg/dL 2.5-4.9 Below low normal Phosphorus Le analia HEXT ([facility]) ID Date Data Source [id number] 02/18/2020 10:20:00 AM EST ROMAN ([facility]) Name Value Range Interpretation Code Description Data Kaye rce(s) Supporting Document(s) phosphorus level 1.4 mg/dL 2.5-4.9 Below low normal Phosphorus Le analia HEXT ([facility]) ID Date Data Source [id number] 02/18/2020 10:20:00 AM EST HEXT ([facility]) Name Value Range Interpretation Code Description Data Kaye rce(s) Supporting Document(s) glucose, fasting 199 mg/dL 70-100 Above high normal Glucose, Fas ting ROMAN ([facility]) blood urea nitrogen 32 mg/dL 7-18 Above high normal Blood Ure a Nitrogen ROMAN ([facility]) creatinine for GFR 1.38 mg/dL 0.55-1.30 Above high normal Creatinine for GFR ROMAN ([facility]) glomerular filtration rate >58 Below low normal Beata merular Filtration Rate ROMAN ([facility]) potassium serum 3.8 mEq/L 3.5-5.1 Potassium Serum ATHE NA ([facility]) sodium level 139 mEq/L 136-145 Sodium Level ROMAN (No [facility]) carbon dioxide level 25 mEq/L 21-32 Carbon Dioxide Level ROMAN ([facility]) chloride level 109 mEq/L 98-107 Above high normal Chloride Level ROMAN ([facility]) anion gap 5 mEq/L 8-16 Below low normal Anion Gap ROMAN ( [facility]) calcium level 8.2 mg/dL 8.5-10.1 Below low normal Calcium Level AT [facility] ([facility]) ID Date Data Source [id number] 02/18/2020 10:20:00 AM EST HEXT ([facility]) Name Value Range Interpretation Code Description Data Kaye rce(s) Supporting Document(s) phosphorus level 1.4 mg/dL 2.5-4.9 Below low normal Phosphorus Le analia ROMAN ([facility]) ID Date Data Source [id number] 02/18/2020 10:20:00 AM EST [facility]EXT ([facility]) Name Value Range Interpretation Code Description Data Kaye rce(s) Supporting Document(s) glucose, fasting 199 mg/dL 70-100 Above high normal Glucose, Fas ting ROMAN ([facility]) creatinine for GFR 1.38 mg/dL 0.55-1.30 Above high normal Creatinine for GFR ROMAN ([facility]) blood urea nitrogen 32 mg/dL 7-18 Above high normal Blood Ure a Nitrogen ROMAN ([facility]) sodium level 139 mEq/L 136-145 Sodium Level ROMAN ([facility]) glomerular filtration rate >58 Below low normal Beata merular Filtration Rate ROMAN ([facility]) chloride level 109 mEq/L 98-107 Above high normal Chloride Level ROMAN ([facility]) potassium serum 3.8 mEq/L 3.5-5.1 Potassium Serum ATHE NA ([facility]) calcium level 8.2 mg/dL 8.5-10.1 Below low normal Calcium Level AT [facility] ([facility]) carbon dioxide level 25 mEq/L 21-32 Carbon Dioxide Level ROMAN ([facility]) anion gap 5 mEq/L 8-16 Below low normal Anion Gap ROMAN ( [facility]) ID Date Data Source [id number] 02/18/2020 10:20:00 AM EST ROMAN ([facility]) Name Value Range Interpretation Code Description Data Kaye rce(s) Supporting Document(s) glucose, fasting 199 mg/dL 70-100 Above high normal Glucose, Fas ting ROMAN ([facility]) creatinine for GFR 1.38 mg/dL 0.55-1.30 Above high normal Creatinine for GFR ROMAN ([facility]) blood urea nitrogen 32 mg/dL 7-18 Above high normal Blood Ure a Nitrogen ROMAN ([facility]) sodium level 139 mEq/L 136-145 Sodium Level ROMAN ([facility]) glomerular filtration rate >58 Below low normal Beata merular Filtration Rate ROMAN ([facility]) potassium serum 3.8 mEq/L 3.5-5.1 Potassium Serum ATHE NA ([facility]) chloride level 109 mEq/L 98-107 Above high normal Chloride Level ROMAN ([facility]) carbon dioxide level 25 mEq/L 21-32 Carbon Dioxide Level ROMAN ([facility]) anion gap 5 mEq/L 8-16 Below low normal Anion Gap ROMAN ( [facility]) calcium level 8.2 mg/dL 8.5-10.1 Below low normal Calcium Level AT [facility] ([facility]) ID Date Data Source [id number] 02/18/2020 10:20:00 AM EST ROMAN ([facility]) Name Value Range Interpretation Code Description Data Kaye rce(s) Supporting Document(s) phosphorus level 1.4 mg/dL 2.5-4.9 Below low normal Phosphorus Le analia ROMAN ([facility]) ID Date Data Source [id number] 02/18/2020 10:20:00 AM EST ROMAN ([facility]) Name Value Range Interpretation Code Description Data Kaye rce(s) Supporting Document(s) blood urea nitrogen 32 mg/dL 7-18 Above high normal Blood Ure a Nitrogen ROMAN ([facility]) glucose, fasting 199 mg/dL 70-100 Above high normal Glucose, Fas ting ROMAN ([facility]) creatinine for GFR 1.38 mg/dL 0.55-1.30 Above high normal Creatinine for GFR ROM[facility] ([facility]) glomerular filtration rate >58 Below low normal Beata merular Filtration Rate ROMAN ([facility]) sodium level 139 mEq/L 136-145 Sodium Level ROMAN ([facility]) potassium serum 3.8 mEq/L 3.5-5.1 Potassium Serum ATH NA ([facility]) carbon dioxide level 25 mEq/L 21-32 Carbon Dioxide Level [facility] ([facility]) chloride level 109 mEq/L 98-107 Above high normal Chloride Level [facility]EXT ([facility]) anion gap 5 mEq/L 8-16 Below low normal Anion Gap HEXT ( [facility]) calcium level 8.2 mg/dL 8.5-10.1 Below low normal Calcium Level AT [facility] ([facility]) ID Date Data Source [id number] 02/18/2020 09:01:00 AM EST [facility]) Name Value Range Interpretation Code Description Data Kaye rce(s) Supporting Document(s) bedside glucose 112 mg/dL 70-105 Above high normal Bedside Gluco se [facility]) ID Date Data Source [id number] 02/18/2020 09:01:00 AM EST [facility]) Name Value Range Interpretation Code Description Data Kaye rce(s) Supporting Document(s) bedside glucose 112 mg/dL 70-105 Above high normal Bedside Gluco se [facility]) ID Date Data Source [id number] 02/18/2020 09:01:00 AM EST [facility]) Name Value Range Interpretation Code Description Data Kaye rce(s) Supporting Document(s) bedside glucose 112 mg/dL 70-105 Above high normal Bedside Gluco se ROMAN ([facility]) ID Date Data Source [id number] 02/18/2020 09:01:00 AM EST ROMAN ([facility]) Name Value Range Interpretation Code Description Data Kaye rce(s) Supporting Document(s) bedside glucose 112 mg/dL 70-105 Above high normal Bedside Gluco se ROMAN ([facility]) ID Date Data Source [id number] 02/18/2020 09:01:00 AM EST ROMAN ([facility]) Name Value Range Interpretation Code Description Data Kaye rce(s) Supporting Document(s) bedside glucose 112 mg/dL 70-105 Above high normal [facility] Data Source [id number] 02/18/2020 09:01:00 AM EST ROMAN ([facility]) Name Value Range Interpretation Code Description Data Kaye rce(s) Supporting Document(s) bedside glucose 112 mg/dL 70-105 Above high normal [facility] Date Data Source [id number] 02/18/2020 09:01:00 AM EST [facility]AN ([facility]) Name Value Range Interpretation Code Description Data Kaye rce(s) Supporting Document(s) bedside glucose 112 mg/dL 70-105 Above high normal [facility] Date Data Source [id number] 02/18/2020 08:03:00 AM EST ROMAN [facility]) Name Value Range Interpretation Code Description Data Kaye rce(s) Supporting Document(s) bedside glucose 123 mg/dL 70-105 Above high normal [facility] Date Data Source [id number] 02/18/2020 08:03:00 AM EST ROMAN ([facility]) Name Value Range Interpretation Code Description Data Kaye rce(s) Supporting Document(s) bedside glucose 123 mg/dL 70-105 Above high normal Bedside Gluco se ROMAN ([facility]) ID Date Data Source [id number] 02/18/2020 08:03:00 AM EST [facility]AN ([facility]) Name Value Range Interpretation Code Description Data Kaye rce(s) Supporting Document(s) bedside glucose 123 mg/dL 70-105 Above high normal Bedside Gluco se ROMAN ([facility]) ID Date Data Source [id number] 02/18/2020 08:03:00 AM EST ROMAN ([facility]) Name Value Range Interpretation Code Description Data Kaye rce(s) Supporting Document(s) bedside glucose 123 mg/dL 70-105 Above high normal Bedside Gluco se ROMAN ([facility]) ID Date Data Source [id number] 02/18/2020 08:03:00 AM EST ROMAN ([facility]) Name Value Range Interpretation Code Description Data Kaye rce(s) Supporting Document(s) bedside glucose 123 mg/dL 70-105 Above high normal Bedside Gluco se ROMAN ([facility]) ID Date Data Source [id number] 02/18/2020 08:03:00 AM EST [facility]AN ([facility]) Name Value Range Interpretation Code Description Data Kaye rce(s) Supporting Document(s) bedside glucose 123 mg/dL 70-105 Above high normal Bedside Gluco se ROMAN ([facility]) ID Date Data Source [id number] 02/18/2020 08:03:00 AM EST [facility]AN ([facility]) Name Value Range Interpretation Code Description Data Kaye rce(s) Supporting Document(s) bedside glucose 123 mg/dL 70-105 Above high normal Bedside Gluco se ROMAN ([facility]) ID Date Data Source [id number] 02/18/2020 07:03:00 AM EST [facility]AN ([facility]) Name Value Range Interpretation Code Description Data Kaye rce(s) Supporting Document(s) bedside glucose 156 mg/dL 70-105 Above high normal Bedside Gluco se ROMAN ([facility]) ID Date Data Source [id number] 02/18/2020 07:03:00 AM EST [facility]AN ([facility]) Name Value Range Interpretation Code Description Data Kaye rce(s) Supporting Document(s) bedside glucose 156 mg/dL 70-105 Above high normal Bedside Gluco se [facility] ([facility]) ID Date Data Source [id number] 02/18/2020 07:03:00 AM EST [facility] ([facility]) Name Value Range Interpretation Code Description Data Kaye rce(s) Supporting Document(s) bedside glucose 156 mg/dL 70-105 Above high normal Bedside Gluco se ROMAN ([facility]) ID Date Data Source [id number] 02/18/2020 07:03:00 [facility] Name Value Range Interpretation Code Description Data Kaye rce(s) Supporting Document(s) bedside glucose 156 mg/dL 70-105 Above high normal Bedside Gluco se ROMAN ([facility]) ID Date Data Source [id number] 02/18/2020 07:03:00 AM EST [facility] ([facility]) Name Value Range Interpretation Code Description Data Kaye rce(s) Supporting Document(s) bedside glucose 156 mg/dL 70-105 Above high normal [facility] Date Data Source [id number] 02/18/2020 07:03:00 AM EST ROMAN ([facility]) Name Value Range Interpretation Code Description Data Kaye rce(s) Supporting Document(s) bedside glucose 156 mg/dL 70-105 Above high normal Bedside Gluco se [facility]AN ([facility]) ID Date Data Source [id number] 02/18/2020 07:03:00 AM EST [facility]AN ([facility]) Name Value Range Interpretation Code Description Data Kaye rce(s) Supporting Document(s) bedside glucose 156 mg/dL 70-105 Above high normal Bedside Gluco se ROMAN ([facility]) ID Date Data Source [id number] 02/18/2020 06:32:00 AM EST [facility]AN ([facility]) Name Value Range Interpretation Code Description Data Kaye rce(s) Supporting Document(s) phosphorus level 2.0 mg/dL 2.5-4.9 Below low normal Phosphorus Le analia ROMAN ([facility]) ID Date Data Source [id number] 02/18/2020 06:32:00 AM EST ROMAN ([facility]) Name Value Range Interpretation Code Description Data Kaye rce(s) Supporting Document(s) glucose, fasting 137 mg/dL 70-100 Above high normal Glucose, Fas ting ROMAN ([facility]) blood urea nitrogen 36 mg/dL 7-18 Above high normal Blood Ure a Nitrogen ROMAN ([facility]) creatinine for GFR 1.35 mg/dL 0.55-1.30 Above high normal Creatinine for GFR ROM[facility] ([facility]) sodium level 140 mEq/L 136-145 Sodium Level ROMAN ([facility]) glomerular filtration rate >58 Below low normal Beata merular Filtration Rate ROMAN ([facility]) chloride level 109 mEq/L 98-107 Above high normal Chloride Level [facility] ([facility]) potassium serum 4.2 mEq/L 3.5-5.1 Potassium Serum ATHE NA ([facility]) anion gap 8 mEq/L 8-16 Anion Gap ROMAN ([facility]) carbon dioxide level 23 mEq/L 21-32 Carbon Dioxide Level [facility]EXT ([facility]) calcium level 8.4 mg/dL 8.5-10.1 Below low normal Calcium Level AT [facility]) ID Date Data Source [id number] 02/18/2020 06:32:00 AM EST [facility]) Name Value Range Interpretation Code Description Data Kaye rce(s) Supporting Document(s) hemoglobin 9.6 g/dL 12.0-15.5 Below low normal Hemoglobin [facility] ( [facility]) red blood count 3.39 10 4.00-5.40 Below low normal Red Blood Coun t [facility] ([facility]) white blood count 6.9 10 4.0-10.0 White Blood Count [facility] ([facility]) mean corpuscular volume 84.7 fL 80.0-96.0 Mean Corpusc ular Volume [facility] ([facility]) hematocrit 28.7 % 36.0-47.0 Below low normal Hematocrit HEXT ( [facility]) mean corpuscular hemoglobin 28.3 pg 27.0-33.0 Mean Cor puscular Hemoglobin [facility]EXT ([facility]) mean corpuscular HGB conc 33.4 g/dL 32.0-36.5 Mean Corpu scular HGB Conc [facility]EXT ([facility]) red cell distribution width 14.8 % 11.5-14.5 Above high no rmal Red Cell Distribution Width [facility]EXT ([facility]) platelet count, automated 300 10 150-450 Platelet C ount, Automated [facility]EXT ([facility]) nucleated red blood cell % 0.0 % 0-0 Nucleated Red Blood Cell % [facility] ([facility]) ID Date Data Source [id number] 02/18/2020 06:32:00 AM EST [facility]) Name Value Range Interpretation Code Description Data Kaye rce(s) Supporting Document(s) phosphorus level 2.0 mg/dL 2.5-4.9 Below low normal Phosphorus Le analia ROMAN ([facility]) ID Date Data Source [id number] 02/18/2020 06:32:00 AM EST ROMAN ([facility]) Name Value Range Interpretation Code Description Data Kaye rce(s) Supporting Document(s) glucose, fasting 137 mg/dL 70-100 Above high normal Glucose, Fas ting ROMAN ([facility]) blood urea nitrogen 36 mg/dL 7-18 Above high normal Blood Ure a Nitrogen ROMAN ([facility]) creatinine for GFR 1.35 mg/dL 0.55-1.30 Above high normal Creatinine for GFR [facility] ([facility]) glomerular filtration rate >58 Below low normal Beata merular Filtration Rate [facility] ([facility]) potassium serum 4.2 mEq/L 3.5-5.1 Potassium Serum ATH NA ([facility]) chloride level 109 mEq/L 98-107 Above high normal Chloride Level ROMAN ([facility]) sodium level 140 mEq/L 136-145 Sodium Level ROMAN ([facility]) carbon dioxide level 23 mEq/L 21-32 Carbon Dioxide Level [facility]EXT ([facility]) anion gap 8 mEq/L 8-16 Anion Gap ROMAN ([facility]) calcium level 8.4 mg/dL 8.5-10.1 Below low normal Calcium Level AT [facility]) ID Date Data Source [id number] 02/18/2020 06:32:00 AM EST [facility] ([facility]) Name Value Range Interpretation Code Description Data Kaye rce(s) Supporting Document(s) white blood count 6.9 10 4.0-10.0 White Blood Count [facility] ([facility]) red blood count 3.39 10 4.00-5.40 Below low normal Red Blood Coun t [facility] ([facility]) hemoglobin 9.6 g/dL 12.0-15.5 Below low normal Hemoglobin [facility] ( [facility]) mean corpuscular volume 84.7 fL 80.0-96.0 Mean Corpusc ular Volume ROMAN ([facility]) hematocrit 28.7 % 36.0-47.0 Below low normal Hematocrit ROMAN ( [facility]) mean corpuscular hemoglobin 28.3 pg 27.0-33.0 Mean Cor puscular Hemoglobin ROMAN ([facility]) mean corpuscular HGB conc 33.4 g/dL 32.0-36.5 Mean Corpu scular HGB Conc ROMAN ([facility]) red cell distribution width 14.8 % 11.5-14.5 Above high no rmal Red Cell Distribution Width ROMAN ([facility]) platelet count, automated 300 10 150-450 Platelet C ount, Automated [facility] ([facility]) nucleated red blood cell % 0.0 % 0-0 Nucleated Red Blood Cell % [facility] ([facility]) ID Date Data Source [id number] 02/18/2020 06:32:00 AM EST [facility] ([facility]) Name Value Range Interpretation Code Description Data Kaye rce(s) Supporting Document(s) phosphorus level 2.0 mg/dL 2.5-4.9 Below low normal Phosphorus Le analia [facility] ([facility]) ID Date Data Source [id number] 02/18/2020 06:32:00 AM EST [facility] ([facility]) Name Value Range Interpretation Code Description Data Kaye rce(s) Supporting Document(s) glucose, fasting 137 mg/dL 70-100 Above high normal Glucose, Fas ting ROMAN ([facility]) creatinine for GFR 1.35 mg/dL 0.55-1.30 Above high normal Creatinine for GFR [facility] ([facility]) blood urea nitrogen 36 mg/dL 7-18 Above high normal Blood Ure a Nitrogen ROM[facility] ([facility]) glomerular filtration rate >58 Below low normal Beata merular Filtration Rate ROMAN ([facility]) sodium level 140 mEq/L 136-145 Sodium Level ROMAN ([facility]) potassium serum 4.2 mEq/L 3.5-5.1 Potassium Serum ATHE NA ([facility]) chloride level 109 mEq/L 98-107 Above high normal Chloride Level ROM[facility] ([facility]) carbon dioxide level 23 mEq/L 21-32 Carbon Dioxide Level [facility] ([facility]) anion gap 8 mEq/L 8-16 Anion Gap [facility] ([facility]) calcium level 8.4 mg/dL 8.5-10.1 Below low normal Calcium Level AT [facility] ([facility]) ID Date Data Source [id number] 02/18/2020 06:32:00 AM EST [facility] ([facility]) Name Value Range Interpretation Code Description Data Kaye rce(s) Supporting Document(s) white blood count 6.9 10 4.0-10.0 White Blood Count [facility] ([facility]) red blood count 3.39 10 4.00-5.40 Below low normal Red Blood Coun t ROM[facility] ([facility]) hemoglobin 9.6 g/dL 12.0-15.5 Below low normal Hemoglobin ROMAN ( [facility]) hematocrit 28.7 % 36.0-47.0 Below low normal Hematocrit ROMAN ( [facility]) mean corpuscular volume 84.7 fL 80.0-96.0 Mean Corpusc ular Volume ROMAN ([facility]) mean corpuscular HGB conc 33.4 g/dL 32.0-36.5 Mean Corpu scular HGB Conc [facility]AN ([facility]) mean corpuscular hemoglobin 28.3 pg 27.0-33.0 Mean Cor puscular Hemoglobin ROM[facility] ([facility]) platelet count, automated 300 10 150-450 Platelet C ount, Automated [facility] ([facility]) red cell distribution width 14.8 % 11.5-14.5 Above high no rmal Red Cell Distribution Width [facility] ([facility]) nucleated red blood cell % 0.0 % 0-0 Nucleated Red Blood Cell % [facility] ([facility]) ID Date Data Source [id number] 02/18/2020 06:32:00 AM EST [facility] ([facility]) Name Value Range Interpretation Code Description Data Kaye rce(s) Supporting Document(s) phosphorus level 2.0 mg/dL 2.5-4.9 Below low normal Phosphorus Le analia [facility] ([facility]) ID Date Data Source [id number] 02/18/2020 06:32:00 AM EST [facility] ([facility]) Name Value Range Interpretation Code Description Data Kaye rce(s) Supporting Document(s) glucose, fasting 137 mg/dL 70-100 Above high normal Glucose, Fas ting ROMAN ([facility]) blood urea nitrogen 36 mg/dL 7-18 Above high normal Blood Ure a Nitrogen ROM[facility] ([facility]) creatinine for GFR 1.35 mg/dL 0.55-1.30 Above high normal Creatinine for GFR [facility] ([facility]) glomerular filtration rate >58 Below low normal Beata merular Filtration Rate ROMAN ([facility]) potassium serum 4.2 mEq/L 3.5-5.1 Potassium Serum ATHE NA ([facility]) sodium level 140 mEq/L 136-145 Sodium Level ROMAN ([facility]) chloride level 109 mEq/L 98-107 Above high normal Chloride Level ROM[facility] ([facility]) carbon dioxide level 23 mEq/L 21-32 Carbon Dioxide Level [facility] ([facility]) anion gap 8 mEq/L 8-16 Anion Gap [facility] ([facility]) calcium level 8.4 mg/dL 8.5-10.1 Below low normal Calcium Level AT TRAM ([facility]) ID Date Data Source [id number] 02/18/2020 06:32:00 AM EST [facility] ([facility]) Name Value Range Interpretation Code Description Data Kaye rce(s) Supporting Document(s) white blood count 6.9 10 4.0-10.0 White Blood Count [facility] ([facility]) red blood count 3.39 10 4.00-5.40 Below low normal Red Blood Coun t [facility] ([facility]) hemoglobin 9.6 g/dL 12.0-15.5 Below low normal Hemoglobin ROMAN ( [facility]) hematocrit 28.7 % 36.0-47.0 Below low normal Hematocrit ROMAN ( [facility]) mean corpuscular volume 84.7 fL 80.0-96.0 Mean Corpusc ular Volume ROMAN ([facility]) mean corpuscular hemoglobin 28.3 pg 27.0-33.0 Mean Cor puscular Hemoglobin ROMAN ([facility]) red cell distribution width 14.8 % 11.5-14.5 Above high no rmal Red Cell Distribution Width [facility]AN ([facility]) mean corpuscular HGB conc 33.4 g/dL 32.0-36.5 Mean Corpu scular HGB Conc [facility] ([facility]) nucleated red blood cell % 0.0 % 0-0 Nucleated Red Blood Cell % [facility] ([facility]) platelet count, automated 300 10 150-450 Platelet C ount, Automated [facility] ([facility]) ID Date Data Source [id number] 02/18/2020 06:32:00 AM EST [facility] ([facility]) Name Value Range Interpretation Code Description Data Kaye rce(s) Supporting Document(s) phosphorus level 2.0 mg/dL 2.5-4.9 Below low normal Phosphorus Le analia [facility] ([facility]) ID Date Data Source [id number] 02/18/2020 06:32:00 AM EST [facility] ([facility]) Name Value Range Interpretation Code Description Data Kaye rce(s) Supporting Document(s) glucose, fasting 137 mg/dL 70-100 Above high normal Glucose, Fas ting ROMAN ([facility]) blood urea nitrogen 36 mg/dL 7-18 Above high normal Blood Ure a Nitrogen [facility] ([facility]) creatinine for GFR 1.35 mg/dL 0.55-1.30 Above high normal Creatinine for GFR [facility] ([facility]) glomerular filtration rate >58 Below low normal Beata merular Filtration Rate ROMAN ([facility]) sodium level 140 mEq/L 136-145 Sodium Level [facility] ([facility]) potassium serum 4.2 mEq/L 3.5-5.1 Potassium Serum ATHE NA ([facility]) carbon dioxide level 23 mEq/L 21-32 Carbon Dioxide Level [facility] ([facility]) chloride level 109 mEq/L 98-107 Above high normal Chloride Level [facility] ([facility]) anion gap 8 mEq/L 8-16 Anion Gap [facility] ([facility]) calcium level 8.4 mg/dL 8.5-10.1 Below low normal Calcium Level AT [facility]) ID Date Data Source [id number] 02/18/2020 06:32:00 AM EST [facility]) Name Value Range Interpretation Code Description Data Kaye rce(s) Supporting Document(s) white blood count 6.9 10 4.0-10.0 White Blood Count [facility] ([facility]) red blood count 3.39 10 4.00-5.40 Below low normal Red Blood Coun t [facility] ([facility]) hemoglobin 9.6 g/dL 12.0-15.5 Below low normal Hemoglobin [facility] ( [facility]) hematocrit 28.7 % 36.0-47.0 Below low normal Hematocrit ROM[facility] ( [facility]) mean corpuscular hemoglobin 28.3 pg 27.0-33.0 Mean Cor puscular Hemoglobin [facility] ([facility]) mean corpuscular volume 84.7 fL 80.0-96.0 Mean Corpusc ular Volume [facility]AN ([facility]) red cell distribution width 14.8 % 11.5-14.5 Above high no rmal Red Cell Distribution Width [facility] ([facility]) mean corpuscular HGB conc 33.4 g/dL 32.0-36.5 Mean Corpu scular HGB Conc [facility] ([facility]) platelet count, automated 300 10 150-450 Platelet C ount, Automated [facility] ([facility]) nucleated red blood cell % 0.0 % 0-0 Nucleated Red Blood Cell % [facility] ([facility]) ID Date Data Source [id number] 02/18/2020 06:32:00 AM EST [facility] ([facility]) Name Value Range Interpretation Code Description Data Kaye rce(s) Supporting Document(s) phosphorus level 2.0 mg/dL 2.5-4.9 Below low normal Phosphorus Le analia [facility] ([facility]) ID Date Data Source [id number] 02/18/2020 06:32:00 AM EST [facility] ([facility]) Name Value Range Interpretation Code Description Data Kaye rce(s) Supporting Document(s) blood urea nitrogen 36 mg/dL 7-18 Above high normal Blood Ure a Nitrogen [facility] ([facility]) glucose, fasting 137 mg/dL 70-100 Above high normal Glucose, Fas ting [facility]AN ([facility]) creatinine for GFR 1.35 mg/dL 0.55-1.30 Above high normal Creatinine for GFR ROMAN ([facility]) glomerular filtration rate >58 Below low normal Beata merular Filtration Rate ROMAN ([facility]) potassium serum 4.2 mEq/L 3.5-5.1 Potassium Serum ATHE NA ([facility]) sodium level 140 mEq/L 136-145 Sodium Level ROMAN ([facility]) carbon dioxide level 23 mEq/L 21-32 Carbon Dioxide Level ROMAN ([facility]) chloride level 109 mEq/L 98-107 Above high normal Chloride Level ROMAN ([facility]) anion gap 8 mEq/L 8-16 Anion Gap ROMAN ([facility]) calcium level 8.4 mg/dL 8.5-10.1 Below low normal Calcium Level AT TRAM ([facility]) ID Date Data Source [id number] 02/18/2020 06:32:00 AM EST ROMAN ([facility]) Name Value Range Interpretation Code Description Data Kaye rce(s) Supporting Document(s) white blood count 6.9 10 4.0-10.0 White Blood Count ROMAN ([facility]) red blood count 3.39 10 4.00-5.40 Below low normal Red Blood Coun t ROMAN ([facility]) hemoglobin 9.6 g/dL 12.0-15.5 Below low normal Hemoglobin ROMAN ( [facility]) hematocrit 28.7 % 36.0-47.0 Below low normal Hematocrit HEXT ( [facility]) mean corpuscular volume 84.7 fL 80.0-96.0 Mean Corpusc ular Volume HEXT ([facility]) mean corpuscular HGB conc 33.4 g/dL 32.0-36.5 Mean Corpu scular HGB Conc HEXT ([facility]) mean corpuscular hemoglobin 28.3 pg 27.0-33.0 Mean Cor puscular Hemoglobin HEXT ([facility]) red cell distribution width 14.8 % 11.5-14.5 Above high no rmal Red Cell Distribution Width HEXT ([facility]) platelet count, automated 300 10 150-450 Platelet C ount, Automated HEXT ([facility]) nucleated red blood cell % 0.0 % 0-0 Nucleated Red Blood Cell % HEXT ([facility]) ID Date Data Source [id number] 02/18/2020 06:32:00 AM EST HEXT ([facility]) Name Value Range Interpretation Code Description Data Kaye rce(s) Supporting Document(s) phosphorus level 2.0 mg/dL 2.5-4.9 Below low normal Phosphorus Le analia HEXT ([facility]) ID Date Data Source [id number] 02/18/2020 06:32:00 AM EST HEXT ([facility]) Name Value Range Interpretation Code Description Data Kaye rce(s) Supporting Document(s) glucose, fasting 137 mg/dL 70-100 Above high normal Glucose, Fas ting ROMAN ([facility]) blood urea nitrogen 36 mg/dL 7-18 Above high normal Blood Ure a Nitrogen HEXT ([facility]) creatinine for GFR 1.35 mg/dL 0.55-1.30 Above high normal Creatinine for GFR ROMAN ([facility]) sodium level 140 mEq/L 136-145 Sodium Level ROMAN ([facility]) glomerular filtration rate >58 Below low normal Beata merular Filtration Rate ROMAN ([facility]) potassium serum 4.2 mEq/L 3.5-5.1 Potassium Serum ATHE NA ([facility]) chloride level 109 mEq/L 98-107 Above high normal Chloride Level ROMAN ([facility]) anion gap 8 mEq/L 8-16 Anion Gap ROMAN ([facility]) carbon dioxide level 23 mEq/L 21-32 Carbon Dioxide Level HEXT ([facility]) calcium level 8.4 mg/dL 8.5-10.1 Below low normal Calcium Level AT [facility]) ID Date Data Source [id number] 02/18/2020 06:32:00 AM EST [facility]) Name Value Range Interpretation Code Description Data Kaye rce(s) Supporting Document(s) red blood count 3.39 10 4.00-5.40 Below low normal Red Blood Coun t HEXT ([facility]) white blood count 6.9 10 4.0-10.0 White Blood Count [facility]) hemoglobin 9.6 g/dL 12.0-15.5 Below low normal Hemoglobin HEXT ( [facility]) hematocrit 28.7 % 36.0-47.0 Below low normal Hematocrit HEXT ( [facility]) mean corpuscular hemoglobin 28.3 pg 27.0-33.0 Mean Cor puscular Hemoglobin HEXT ([facility]) mean corpuscular volume 84.7 fL 80.0-96.0 Mean Corpusc ular Volume HEXT ([facility]) red cell distribution width 14.8 % 11.5-14.5 Above high no rmal Red Cell Distribution Width ROMAN ([facility]) mean corpuscular HGB conc 33.4 g/dL 32.0-36.5 Mean Corpu scular HGB Conc ROMAN ([facility]) platelet count, automated 300 10 150-450 Platelet C ount, Automated HEXT ([facility]) nucleated red blood cell % 0.0 % 0-0 Nucleated Red Blood Cell % HEXT ([facility]) ID Date Data Source [id number] 02/18/2020 06:19:00 AM EST ROMAN ([facility]) Name Value Range Interpretation Code Description Data Kaye rce(s) Supporting Document(s) bedside glucose 122 mg/dL 70-105 Above high normal Bedside Gluco se HEXT ([facility]) ID Date Data Source [id number] 02/18/2020 06:19:00 AM EST ROMAN ([facility]) Name Value Range Interpretation Code Description Data Kaye rce(s) Supporting Document(s) bedside glucose 122 mg/dL 70-105 Above high normal Bedside Gluco se HEXT ([facility]) ID Date Data Source [id number] 02/18/2020 06:19:00 AM EST [facility]) Name Value Range Interpretation Code Description Data Kaye rce(s) Supporting Document(s) bedside glucose 122 mg/dL 70-105 Above high normal Bedside Gluco se [facility]) ID Date Data Source [id number] 02/18/2020 06:19:00 AM EST ROMAN ([facility]) Name Value Range Interpretation Code Description Data Kaye rce(s) Supporting Document(s) bedside glucose 122 mg/dL 70-105 Above high normal Bedside Gluco se [facility]) ID Date Data Source [id number] 02/18/2020 06:19:00 AM EST ROMAN [facility]) Name Value Range Interpretation Code Description Data Kaye rce(s) Supporting Document(s) bedside glucose 122 mg/dL 70-105 Above high normal [facility] Date Data Source [id number] 02/18/2020 06:19:00 AM EST ROMAN ([facility]) Name Value Range Interpretation Code Description Data Kaye rce(s) Supporting Document(s) bedside glucose 122 mg/dL 70-105 Above high normal Bedside Gluco se ROMAN ([facility]) ID Date Data Source [id number] 02/18/2020 06:19:00 AM EST ROMAN ([facility]) Name Value Range Interpretation Code Description Data Kaye rce(s) Supporting Document(s) bedside glucose 122 mg/dL 70-105 Above high normal Bedside Gluco se ROMAN ([facility]) ID Date Data Source [id number] 02/18/2020 05:24:00 AM EST ROMAN ([facility]) Name Value Range Interpretation Code Description Data Kaye rce(s) Supporting Document(s) bedside glucose 82 mg/dL 70-105 Bedside Glucose ATHE NA ([facility]) ID Date Data Source [id number] 02/18/2020 05:24:00 [facility] Name Value Range Interpretation Code Description Data Kaye rce(s) Supporting Document(s) bedside glucose 82 mg/dL 70-105 Bedside Glucose ATHE NA ([facility]) ID Date Data Source [id number] 02/18/2020 05:24:00 AM [facility] Name Value Range Interpretation Code Description Data Kaye rce(s) Supporting Document(s) bedside glucose 82 mg/dL 70-105 Bedside Glucose ATHE NA ([facility]) ID Date Data Source [id number] 02/18/2020 05:24:00 AM EST ROMAN [facility]) Name Value Range Interpretation Code Description Data Kaye rce(s) Supporting Document(s) bedside glucose 82 mg/dL 70-105 Bedside Glucose ATHE TIAGO ([facility]) ID Date Data Source [id number] 02/18/2020 05:24:00 AM EST ROMAN ([facility]) Name Value Range Interpretation Code Description Data Kaye rce(s) Supporting Document(s) bedside glucose 82 mg/dL 70-105 Bedside Glucose ATHE TIAGO ([facility]) ID Date Data Source [id number] 02/18/2020 05:24:00 AM EST ROMAN ([facility]) Name Value Range Interpretation Code Description Data Kaye rce(s) Supporting Document(s) bedside glucose 82 mg/dL 70-105 Bedside Glucose ATHE TIAGO ([facility]) ID Date Data Source [id number] 02/18/2020 05:24:00 AM EST ROMAN ([facility]) Name Value Range Interpretation Code Description Data Kaye rce(s) Supporting Document(s) bedside glucose 82 mg/dL 70-105 Bedside Glucose ATHE TIAGO ([facility]) ID Date Data Source [id number] 02/18/2020 04:20:00 AM [facility] Name Value Range Interpretation Code Description Data Kaye rce(s) Supporting Document(s) bedside glucose 101 mg/dL 70-105 Bedside Glucose ATHE TIAGO ([facility]) ID Date Data Source [id number] 02/18/2020 04:20:00 AM EST ROMAN ([facility]) Name Value Range Interpretation Code Description Data Kaye rce(s) Supporting Document(s) bedside glucose 101 mg/dL 70-105 Bedside Glucose ATHE TIAGO ([facility]) ID Date Data Source [id number] 02/18/2020 04:20:00 AM EST ROMAN ([facility]) Name Value Range Interpretation Code Description Data Kaye rce(s) Supporting Document(s) bedside glucose 101 mg/dL 70-105 Bedside Glucose ATHVanessa ORDOÑEZ ([facility]) ID Date Data Source [id number] 02/18/2020 04:20:00 AM EST ROMAN ([facility]) Name Value Range Interpretation Code Description Data Kaye rce(s) Supporting Document(s) bedside glucose 101 mg/dL 70-105 Bedside Glucose ATHE TIAGO ([facility]) ID Date Data Source [id number] 02/18/2020 04:20:00 AM EST ROMAN ([facility]) Name Value Range Interpretation Code Description Data Kaye rce(s) Supporting Document(s) bedside glucose 101 mg/dL 70-105 Bedside Glucose ATHE TIAGO ([facility]) ID Date Data Source [id number] 02/18/2020 04:20:00 AM EST ROMAN ([facility]) Name Value Range Interpretation Code Description Data Kaye rce(s) Supporting Document(s) bedside glucose 101 mg/dL 70-105 Bedside Glucose ATHE TIAGO ([facility]) ID Date Data Source [id number] 02/18/2020 04:20:00 AM EST ROMAN ([facility]) Name Value Range Interpretation Code Description Data Kaye rce(s) Supporting Document(s) bedside glucose 101 mg/dL 70-105 Bedside Glucose ATHE TIAGO ([facility]) ID Date Data Source [id number] 02/18/2020 03:13:00 AM EST ROMAN ([facility]) Name Value Range Interpretation Code Description Data Kaye rce(s) Supporting Document(s) bedside glucose 133 mg/dL 70-105 Above high normal Bedside Gluco se ROMAN ([facility]) ID Date Data Source [id number] 02/18/2020 03:13:00 AM EST ROMAN ([facility]) Name Value Range Interpretation Code Description Data Kaye rce(s) Supporting Document(s) bedside glucose 133 mg/dL 70-105 Above high normal Bedside Gluco se ROMAN ([facility]) ID Date Data Source [id number] 02/18/2020 03:13:00 AM EST ROMAN ([facility]) Name Value Range Interpretation Code Description Data Kaye rce(s) Supporting Document(s) bedside glucose 133 mg/dL 70-105 Above high normal Bedside Gluco se ROMAN ([facility]) ID Date Data Source [id number] 02/18/2020 03:13:00 AM EST ROMAN ([facility]) Name Value Range Interpretation Code Description Data Kaye rce(s) Supporting Document(s) bedside glucose 133 mg/dL 70-105 Above high normal Bedside Gluco se ROMAN ([facility]) ID Date Data Source [id number] 02/18/2020 03:13:00 AM EST ROMAN ([facility]) Name Value Range Interpretation Code Description Data Kaye rce(s) Supporting Document(s) bedside glucose 133 mg/dL 70-105 Above high normal Bedside Gluco se ROMAN ([facility]) ID Date Data Source [id number] 02/18/2020 03:13:00 AM EST ROMAN ([facility]) Name Value Range Interpretation Code Description Data Kaye rce(s) Supporting Document(s) bedside glucose 133 mg/dL 70-105 Above high normal [facility] Date Data Source [id number] 02/18/2020 03:13:00 AM EST [facility] Name Value Range Interpretation Code Description Data Kaye rce(s) Supporting Document(s) bedside glucose 133 mg/dL 70-105 Above high normal Bedside Gluco se ROMAN ([facility]) ID Date Data Source [id number] 02/18/2020 02:25:00 AM EST ROMAN ([facility]) Name Value Range Interpretation Code Description Data Kaye rce(s) Supporting Document(s) phosphorus level 2.1 mg/dL 2.5-4.9 Below low normal Phosphorus Le analia ROMAN ([facility]) ID Date Data Source [id number] 02/18/2020 02:25:00 AM EST ROMAN ([facility]) Name Value Range Interpretation Code Description Data Kaye rce(s) Supporting Document(s) glucose, fasting 135 mg/dL 70-100 Above high normal Glucose, Fas ting HEXT ([facility]) creatinine for GFR 1.64 mg/dL 0.55-1.30 Above high normal Creatinine for GFR HEXT ([facility]) blood urea nitrogen 41 mg/dL 7-18 Above high normal Blood Ure a Nitrogen HEXT ([facility]) glomerular filtration rate >58 Below low normal Beata merular Filtration Rate ROMAN ([facility]) sodium level 139 mEq/L 136-145 Sodium Level ROMAN ([facility]) potassium serum 3.7 mEq/L 3.5-5.1 Potassium Serum ATHE NA ([facility]) chloride level 107 mEq/L 98-107 Chloride Level HEXT ([facility]) carbon dioxide level 25 mEq/L 21-32 Carbon Dioxide Level HEXT ([facility]) anion gap 7 mEq/L 8-16 Below low normal Anion Gap HEXT ( [facility]) calcium level 8.2 mg/dL 8.5-10.1 Below low normal Calcium Level AT TRAM [facility]) ID Date Data Source [id number] 02/18/2020 02:25:00 AM EST [facility]) Name Value Range Interpretation Code Description Data Kaye rce(s) Supporting Document(s) phosphorus level 2.1 mg/dL 2.5-4.9 Below low normal Phosphorus Le analia ROMAN ([facility]) ID Date Data Source [id number] 02/18/2020 02:25:00 AM EST ROMAN ([facility]) Name Value Range Interpretation Code Description Data Kaye rce(s) Supporting Document(s) glucose, fasting 135 mg/dL 70-100 Above high normal Glucose, Fas ting ROMAN ([facility]) blood urea nitrogen 41 mg/dL 7-18 Above high normal Blood Ure a Nitrogen ROMAN ([facility]) creatinine for GFR 1.64 mg/dL 0.55-1.30 Above high normal Creatinine for GFR ROMAN ([facility]) glomerular filtration rate >58 Below low normal Beata merular Filtration Rate ROMAN ([facility]) sodium level 139 mEq/L 136-145 Sodium Level ROMAN ([facility]) potassium serum 3.7 mEq/L 3.5-5.1 Potassium Serum ATHE NA ([facility]) chloride level 107 mEq/L 98-107 Chloride Level ROMAN ([facility]) carbon dioxide level 25 mEq/L 21-32 Carbon Dioxide Level ROMAN ([facility]) anion gap 7 mEq/L 8-16 Below low normal Anion Gap ROMAN ( [facility]) calcium level 8.2 mg/dL 8.5-10.1 Below low normal Calcium Level AT TRAM ([facility]) ID Date Data Source [id number] 02/18/2020 02:25:00 AM EST ROMAN ([facility]) Name Value Range Interpretation Code Description Data Kaye rce(s) Supporting Document(s) phosphorus level 2.1 mg/dL 2.5-4.9 Below low normal Phosphorus Le analia ROMAN ([facility]) ID Date Data Source [id number] 02/18/2020 02:25:00 AM EST ROMAN ([facility]) Name Value Range Interpretation Code Description Data Kaye rce(s) Supporting Document(s) glucose, fasting 135 mg/dL 70-100 Above high normal Glucose, Fas ting HEXT ([facility]) blood urea nitrogen 41 mg/dL 7-18 Above high normal Blood Ure a Nitrogen ROMAN ([facility]) creatinine for GFR 1.64 mg/dL 0.55-1.30 Above high normal Creatinine for GFR ROMAN ([facility]) glomerular filtration rate >58 Below low normal Beata merular Filtration Rate ROMAN ([facility]) sodium level 139 mEq/L 136-145 Sodium Level ROMAN (No [facility]) potassium serum 3.7 mEq/L 3.5-5.1 Potassium Serum ATHE NA ([facility]) chloride level 107 mEq/L 98-107 Chloride Level HEXT ([facility]) carbon dioxide level 25 mEq/L 21-32 Carbon Dioxide Level HEXT ([facility]) calcium level 8.2 mg/dL 8.5-10.1 Below low normal Calcium Level AT [facility]) anion gap 7 mEq/L 8-16 Below low normal Anion Gap HEXT ( [facility]) ID Date Data Source [id number] 02/18/2020 02:25:00 AM EST HEXT ([facility]) Name Value Range Interpretation Code Description Data Kaye rce(s) Supporting Document(s) phosphorus level 2.1 mg/dL 2.5-4.9 Below low normal Phosphorus Le analia ROMAN ([facility]) ID Date Data Source [id number] 02/18/2020 02:25:00 AM EST HEXT ([facility]) Name Value Range Interpretation Code Description Data Kaye rce(s) Supporting Document(s) glucose, fasting 135 mg/dL 70-100 Above high normal Glucose, Fas ting HEXT ([facility]) creatinine for GFR 1.64 mg/dL 0.55-1.30 Above high normal Creatinine for GFR ROMAN ([facility]) blood urea nitrogen 41 mg/dL 7-18 Above high normal Blood Ure a Nitrogen ROMAN ([facility]) glomerular filtration rate >58 Below low normal Beata merular Filtration Rate ROMAN ([facility]) potassium serum 3.7 mEq/L 3.5-5.1 Potassium Serum ATHE NA ([facility]) sodium level 139 mEq/L 136-145 Sodium Level ROMAN (No [facility]) chloride level 107 mEq/L 98-107 Chloride Level ROMAN ([facility]) carbon dioxide level 25 mEq/L 21-32 Carbon Dioxide Level ROMAN ([facility]) anion gap 7 mEq/L 8-16 Below low normal Anion Gap ROMAN ( [facility]) calcium level 8.2 mg/dL 8.5-10.1 Below low normal Calcium Level AT TRAM ([facility]) ID Date Data Source [id number] 02/18/2020 02:25:00 AM EST HEXT ([facility]) Name Value Range Interpretation Code Description Data Kaye rce(s) Supporting Document(s) phosphorus level 2.1 mg/dL 2.5-4.9 Below low normal Phosphorus Le analia ROMAN ([facility]) ID Date Data Source [id number] 02/18/2020 02:25:00 AM EST HEXT ([facility]) Name Value Range Interpretation Code Description Data Kaye rce(s) Supporting Document(s) glucose, fasting 135 mg/dL 70-100 Above high normal Glucose, Fas ting ROMAN ([facility]) blood urea nitrogen 41 mg/dL 7-18 Above high normal Blood Ure a Nitrogen ROMAN ([facility]) glomerular filtration rate >58 Below low normal Beata merular Filtration Rate ROMAN ([facility]) creatinine for GFR 1.64 mg/dL 0.55-1.30 Above high normal Creatinine for GFR ROMAN ([facility]) sodium level 139 mEq/L 136-145 Sodium Level ROMAN (No [facility]) potassium serum 3.7 mEq/L 3.5-5.1 Potassium Serum ATHE NA ([facility]) carbon dioxide level 25 mEq/L 21-32 Carbon Dioxide Level ROMAN ([facility]) chloride level 107 mEq/L 98-107 Chloride Level ROMAN ([facility]) calcium level 8.2 mg/dL 8.5-10.1 Below low normal Calcium Level AT [facility] ([facility]) anion gap 7 mEq/L 8-16 Below low normal Anion Gap ROMAN ( [facility]) ID Date Data Source [id number] 02/18/2020 02:25:00 AM EST HEXT ([facility]) Name Value Range Interpretation Code Description Data Kaye rce(s) Supporting Document(s) phosphorus level 2.1 mg/dL 2.5-4.9 Below low normal Phosphorus Le analia ROMAN ([facility]) ID Date Data Source [id number] 02/18/2020 02:25:00 AM EST HEXT ([facility]) Name Value Range Interpretation Code Description Data Kaye rce(s) Supporting Document(s) glucose, fasting 135 mg/dL 70-100 Above high normal Glucose, Fas ting ROMAN ([facility]) creatinine for GFR 1.64 mg/dL 0.55-1.30 Above high normal Creatinine for GFR HEXT ([facility]) blood urea nitrogen 41 mg/dL 7-18 Above high normal Blood Ure a Nitrogen ROMAN ([facility]) sodium level 139 mEq/L 136-145 Sodium Level ROMAN ([facility]) glomerular filtration rate >58 Below low normal Beata merular Filtration Rate ROMAN ([facility]) potassium serum 3.7 mEq/L 3.5-5.1 Potassium Serum ATHE NA ([facility]) carbon dioxide level 25 mEq/L 21-32 Carbon Dioxide Level ROMAN ([facility]) chloride level 107 mEq/L 98-107 Chloride Level ROMAN ([facility]) anion gap 7 mEq/L 8-16 Below low normal Anion Gap ROMAN ( [facility]) calcium level 8.2 mg/dL 8.5-10.1 Below low normal Calcium Level AT [facility] ([facility]) ID Date Data Source [id number] 02/18/2020 02:25:00 AM EST ROMAN ([facility]) Name Value Range Interpretation Code Description Data Kaye rce(s) Supporting Document(s) phosphorus level 2.1 mg/dL 2.5-4.9 Below low normal Phosphorus Le analia ROMAN ([facility]) ID Date Data Source [id number] 02/18/2020 02:25:00 AM EST ROMAN ([facility]) Name Value Range Interpretation Code Description Data Kaye rce(s) Supporting Document(s) glucose, fasting 135 mg/dL 70-100 Above high normal Glucose, Fas ting HEXT ([facility]) creatinine for GFR 1.64 mg/dL 0.55-1.30 Above high normal Creatinine for GFR HEXT ([facility]) blood urea nitrogen 41 mg/dL 7-18 Above high normal Blood Ure a Nitrogen HEXT ([facility]) glomerular filtration rate >58 Below low normal Beata merular Filtration Rate HEXT ([facility]) sodium level 139 mEq/L 136-145 Sodium Level ROMAN (No [facility]) potassium serum 3.7 mEq/L 3.5-5.1 Potassium Serum ATH NA ([facility]) chloride level 107 mEq/L 98-107 Chloride Level HEXT ([facility]) carbon dioxide level 25 mEq/L 21-32 Carbon Dioxide Level HEXT ([facility]) calcium level 8.2 mg/dL 8.5-10.1 Below low normal Calcium Level AT TRAM ([facility]) anion gap 7 mEq/L 8-16 Below low normal Anion Gap HEXT ( [facility]) ID Date Data Source [id number] 02/18/2020 02:23:00 AM EST ROMAN ([facility]) Name Value Range Interpretation Code Description Data Kaye rce(s) Supporting Document(s) bedside glucose 135 mg/dL 70-105 Above high normal Bedside Gluco se HEXT ([facility]) ID Date Data Source [id number] 02/18/2020 02:23:00 AM EST ROMAN ([facility]) Name Value Range Interpretation Code Description Data Kaye rce(s) Supporting Document(s) bedside glucose 135 mg/dL 70-105 Above high normal Bedside Gluco se ROMAN ([facility]) ID Date Data Source [id number] 02/18/2020 02:23:00 AM EST ROMAN ([facility]) Name Value Range Interpretation Code Description Data Kaye rce(s) Supporting Document(s) bedside glucose 135 mg/dL 70-105 Above high normal Bedside Gluco se HEXT ([facility]) ID Date Data Source [id number] 02/18/2020 02:23[facility]00 [facility] Name Value Range Interpretation Code Description Data Kaye rce(s) Supporting Document(s) bedside glucose 135 mg/dL 70-105 Above high normal Bedside Gluco se HEXT ([facility]) ID Date Data Source [id number] 02/18/2020 02:23:00 AM EST ROMAN ([facility]) Name Value Range Interpretation Code Description Data Kaye rce(s) Supporting Document(s) bedside glucose 135 mg/dL 70-105 Above high normal Bedside Gluco se ROMAN ([facility]) ID Date Data Source [id number] 02/18/2020 02:23:00 AM EST ROMAN ([facility]) Name Value Range Interpretation Code Description Data Kaye rce(s) Supporting Document(s) bedside glucose 135 mg/dL 70-105 Above high normal [facility] Date Data Source [id number] 02/18/2020 02:23:00 AM [facility] Name Value Range Interpretation Code Description Data Kaye rce(s) Supporting Document(s) bedside glucose 135 mg/dL 70-105 Above high normal Bedside Gluco se HEXT ([facility]) ID Date Data Source [id number] 02/18/2020 01:09:00 AM EST ROMAN ([facility]) Name Value Range Interpretation Code Description Data Kaye rce(s) Supporting Document(s) bedside glucose 139 mg/dL 70-105 Above high normal Bedside Gluco se ROMAN ([facility]) ID Date Data Source [id number] 02/18/2020 01:09:00 [facility] Name Value Range Interpretation Code Description Data Kaye rce(s) Supporting Document(s) bedside glucose 139 mg/dL 70-105 Above high normal Bedside Gluco se [facility]) ID Date Data Source [id number] 02/18/2020 01:09:00 AM EST [facility]) Name Value Range Interpretation Code Description Data Kaye rce(s) Supporting Document(s) bedside glucose 139 mg/dL 70-105 Above high normal Bedside Gluco se HEXT ([facility]) ID Date Data Source [id number] 02/18/2020 01:09:00 AM [facility] Name Value Range Interpretation Code Description Data Kaye rce(s) Supporting Document(s) bedside glucose 139 mg/dL 70-105 Above high normal [facility] Date Data Source [id number] 02/18/2020 01:09:00 AM [facility] Name Value Range Interpretation Code Description Data Kaye rce(s) Supporting Document(s) bedside glucose 139 mg/dL 70-105 Above high normal Bedside Gluco se [facility]) ID Date Data Source [id number] 02/18/2020 01:09:00 AM EST ROMAN ([facility]) Name Value Range Interpretation Code Description Data Kaye rce(s) Supporting Document(s) bedside glucose 139 mg/dL 70-105 Above high normal Bedside Gluco se ROMAN ([facility]) ID Date Data Source [id number] 02/18/2020 01:09:00 AM EST ROMAN ([facility]) Name Value Range Interpretation Code Description Data Kaye rce(s) Supporting Document(s) bedside glucose 139 mg/dL 70-105 Above high normal Bedside Gluco se ROMAN ([facility]) ID Date Data Source [id number] 02/18/2020 12:08:00 AM EST ROMAN [facility]) Name Value Range Interpretation Code Description Data Kaye rce(s) Supporting Document(s) bedside glucose 162 mg/dL 70-105 Above high normal Bedside Gluco se ROMAN ([facility]) ID Date Data Source [id number] 02/18/2020 12:08:00 AM [facility] Name Value Range Interpretation Code Description Data Kaye rce(s) Supporting Document(s) bedside glucose 162 mg/dL 70-105 Above high normal Bedside Gluco se ROMAN ([facility]) ID Date Data Source [id number] 02/18/2020 12:08:00 AM EST ROMAN ([facility]) Name Value Range Interpretation Code Description Data Kaye rce(s) Supporting Document(s) bedside glucose 162 mg/dL 70-105 Above high normal [facility] ID Date Data Source [id number] 02/18/2020 12:08:00 AM [facility] Name Value Range Interpretation Code Description Data Kaye rce(s) Supporting Document(s) bedside glucose 162 mg/dL 70-105 Above high normal Bedside Gluco se ROMAN ([facility]) ID Date Data Source [id number] 02/18/2020 12:08:00 AM EST ROMAN ([facility]) Name Value Range Interpretation Code Description Data Kaye rce(s) Supporting Document(s) bedside glucose 162 mg/dL 70-105 Above high normal Bedside Gluco se ROMAN ([facility]) ID Date Data Source [id number] 02/18/2020 12:08:00 AM EST ROMAN ([facility]) Name Value Range Interpretation Code Description Data Kaye rce(s) Supporting Document(s) bedside glucose 162 mg/dL 70-105 Above high normal Bedside Gluco se ROMAN ([facility]) ID Date Data Source [id number] 02/18/2020 12:08:00 AM EST ROMAN ([facility]) Name Value Range Interpretation Code Description Data Kaye rce(s) Supporting Document(s) bedside glucose 162 mg/dL 70-105 Above high normal Bedside Gluco se ROMAN ([facility]) ID Date Data Source [id number] 02/17/2020 11:37:00 PM EST ROMAN ([facility]) Name Value Range Interpretation Code Description Data Kaye rce(s) Supporting Document(s) bedside glucose 103 mg/dL 70-105 Bedside Glucose ATHE NA ([facility]) ID Date Data Source [id number] 02/17/2020 11:37:00 PM EST ROMAN ([facility]) Name Value Range Interpretation Code Description Data Kaye rce(s) Supporting Document(s) bedside glucose 103 mg/dL 70-105 Bedside Glucose ATHE NA ([facility]) ID Date Data Source [id number] 02/17/2020 11:37:00 PM EST ROMAN ([facility]) Name Value Range Interpretation Code Description Data Kaye rce(s) Supporting Document(s) bedside glucose 103 mg/dL 70-105 Bedside Glucose ATHVanessa ORDOÑEZ ([facility]) ID Date Data Source [id number] 02/17/2020 11:37:00 PM EST ROMAN ([facility]) Name Value Range Interpretation Code Description Data Kaye rce(s) Supporting Document(s) bedside glucose 103 mg/dL 70-105 Bedside Glucose ATHE TIAGO ([facility]) ID Date Data Source [id number] 02/17/2020 11:37:00 PM EST ROMAN ([facility]) Name Value Range Interpretation Code Description Data Kaye rce(s) Supporting Document(s) bedside glucose 103 mg/dL 70-105 Bedside Glucose ATHE TIAGO ([facility]) ID Date Data Source [id number] 02/17/2020 11:37:00 PM EST ROMAN ([facility]) Name Value Range Interpretation Code Description Data Kaye rce(s) Supporting Document(s) bedside glucose 103 mg/dL 70-105 Bedside Glucose ATHE TIAGO ([facility]) ID Date Data Source [id number] 02/17/2020 11:37:00 PM EST ROMAN ([facility]) Name Value Range Interpretation Code Description Data Kaye rce(s) Supporting Document(s) bedside glucose 103 mg/dL 70-105 Bedside Glucose ATHE TIAGO ([facility]) ID Date Data Source [id number] 02/17/2020 10:58:00 PM EST ROMAN ([facility]) Name Value Range Interpretation Code Description Data Kaye rce(s) Supporting Document(s) bedside glucose 79 mg/dL 70-105 Bedside Glucose ATHE TIAGO ([facility]) ID Date Data Source [id number] 02/17/2020 10:58:00 PM EST ROMAN ([facility]) Name Value Range Interpretation Code Description Data Kaye rce(s) Supporting Document(s) bedside glucose 79 mg/dL 70-105 Bedside Glucose ATHE TIAGO ([facility]) ID Date Data Source [id number] 02/17/2020 10:58:00 PM EST ROMAN ([facility]) Name Value Range Interpretation Code Description Data Kaye rce(s) Supporting Document(s) bedside glucose 79 mg/dL 70-105 Bedside Glucose ATHE TIAGO ([facility]) ID Date Data Source [id number] 02/17/2020 10:58:00 PM EST ROMAN ([facility]) Name Value Range Interpretation Code Description Data Kaye rce(s) Supporting Document(s) bedside glucose 79 mg/dL 70-105 Bedside Glucose ATHE TIAGO ([facility]) ID Date Data Source [id number] 02/17/2020 10:58:00 PM EST ROMAN ([facility]) Name Value Range Interpretation Code Description Data Kaye rce(s) Supporting Document(s) bedside glucose 79 mg/dL 70-105 Bedside Glucose ATHE TIAGO ([facility]) ID Date Data Source [id number] 02/17/2020 10:58:00 PM EST ROMAN ([facility]) Name Value Range Interpretation Code Description Data Kaye rce(s) Supporting Document(s) bedside glucose 79 mg/dL 70-105 Bedside Glucose ATHE NA ([facility]) ID Date Data Source [id number] 02/17/2020 10:58:00 PM EST ROMAN ([facility]) Name Value Range Interpretation Code Description Data Kaye rce(s) Supporting Document(s) bedside glucose 79 mg/dL 70-105 Bedside Glucose ATHE NA ([facility]) ID Date Data Source [id number] 02/17/2020 10:40:00 PM EST ROMAN ([facility]) Name Value Range Interpretation Code Description Data Kaye rce(s) Supporting Document(s) bedside glucose 77 mg/dL 70-105 Bedside Glucose ATHVanessa ORDOÑEZ ([facility]) ID Date Data Source [id number] 02/17/2020 10:40:00 PM EST ROMAN ([facility]) Name Value Range Interpretation Code Description Data Kaye rce(s) Supporting Document(s) bedside glucose 77 mg/dL 70-105 Bedside Glucose ATHVanessa ORDOÑEZ ([facility]) ID Date Data Source [id number] 02/17/2020 10:40:00 PM EST ROMAN ([facility]) Name Value Range Interpretation Code Description Data Kaye rce(s) Supporting Document(s) bedside glucose 77 mg/dL 70-105 Bedside Glucose ATHE TIAGO ([facility]) ID Date Data Source [id number] 02/17/2020 10:40:00 [facility] Name Value Range Interpretation Code Description Data Kaye rce(s) Supporting Document(s) bedside glucose 77 mg/dL 70-105 Bedside Glucose ATHE TIAGO ([facility]) ID Date Data Source [id number] 02/17/2020 10:40:00 PM EST ROMAN ([facility]) Name Value Range Interpretation Code Description Data Kaye rce(s) Supporting Document(s) bedside glucose 77 mg/dL 70-105 Bedside Glucose ATHE TIAGO ([facility]) ID Date Data Source [id number] 02/17/2020 10:40:00 PM EST ROMAN ([facility]) Name Value Range Interpretation Code Description Data Kaye rce(s) Supporting Document(s) bedside glucose 77 mg/dL 70-105 Bedside Glucose ATHE TIAGO ([facility]) ID Date Data Source [id number] 02/17/2020 10:40:00 PM EST ROMAN ([facility]) Name Value Range Interpretation Code Description Data Kaye rce(s) Supporting Document(s) bedside glucose 77 mg/dL 70-105 Bedside Glucose ATHVanessa ORDOÑEZ ([facility]) ID Date Data Source [id number] 02/17/2020 09:17:00 PM EST ROMAN ([facility]) Name Value Range Interpretation Code Description Data Kaye rce(s) Supporting Document(s) bedside glucose 191 mg/dL 70-105 Above high normal Bedside Gluco se ROMAN ([facility]) ID Date Data Source [id number] 02/17/2020 09:17:00 PM EST ROMAN ([facility]) Name Value Range Interpretation Code Description Data Kaye rce(s) Supporting Document(s) bedside glucose 191 mg/dL 70-105 Above high normal Bedside Gluco se ROMAN ([facility]) ID Date Data Source [id number] 02/17/2020 09:17:00 PM EST ROMAN ([facility]) Name Value Range Interpretation Code Description Data Kaye rce(s) Supporting Document(s) bedside glucose 191 mg/dL 70-105 Above high normal Bedside Gluco se ROMAN ([facility]) ID Date Data Source [id number] 02/17/2020 09:17:00 PM EST ROMAN ([facility]) Name Value Range Interpretation Code Description Data Kaye rce(s) Supporting Document(s) bedside glucose 191 mg/dL 70-105 Above high normal Bedside Gluco se ROMAN ([facility]) ID Date Data Source [id number] 02/17/2020 09:17:00 PM EST ROMAN ([facility]) Name Value Range Interpretation Code Description Data Kaye rce(s) Supporting Document(s) bedside glucose 191 mg/dL 70-105 Above high normal Bedside Gluco se ROMAN ([facility]) ID Date Data Source [id number] 02/17/2020 09:17:00 PM EST ROMAN ([facility]) Name Value Range Interpretation Code Description Data Kaye rce(s) Supporting Document(s) bedside glucose 191 mg/dL 70-105 Above high normal Bedside Gluco se ROMAN ([facility]) ID Date Data Source [id number] 02/17/2020 09:17:00 PM EST ROMAN ([facility]) Name Value Range Interpretation Code Description Data Kaye rce(s) Supporting Document(s) bedside glucose 191 mg/dL 70-105 Above high normal Bedside Gluco se ROMAN ([facility]) ID Date Data Source [id number] 02/17/2020 08:19:00 PM EST ROMAN ([facility]) Name Value Range Interpretation Code Description Data Kaye rce(s) Supporting Document(s) phosphorus level 4.3 mg/dL 2.5-4.9 Phosphorus Level AT [facility] ([facility]) ID Date Data Source [id number] 02/17/2020 08:19:00 PM EST ROMAN ([facility]) Name Value Range Interpretation Code Description Data Kaye rce(s) Supporting Document(s) creatinine for GFR 1.81 mg/dL 0.55-1.30 Above high normal Creatinine for GFR ROMAN ([facility]) glucose, fasting 314 mg/dL 70-100 Above high normal Glucose, Fas ting ROMAN ([facility]) blood urea nitrogen 48 mg/dL 7-18 Above high normal Blood Ure a Nitrogen ROMAN ([facility]) potassium serum 3.5 mEq/L 3.5-5.1 Potassium Serum ATHE NA ([facility]) chloride level 98 mEq/L 98-107 Chloride Level ROMAN ([facility]) sodium level 134 mEq/L 136-145 Below low normal Sodium Level ATHE NA ([facility]) glomerular filtration rate >58 Below low normal Beata merular Filtration Rate ROMAN ([facility]) carbon dioxide level 19 mEq/L 21-32 Below low normal Carbon Di oxide Level ROMAN ([facility]) calcium level 8.9 mg/dL 8.5-10.1 Calcium Level ROMAN ( [facility]) anion gap 17 mEq/L 8-16 Above high normal Anion Gap ROMAN ([facility]) ID Date Data Source [id number] 02/17/2020 08:19:00 PM EST HEXT ([facility]) Name Value Range Interpretation Code Description Data Kaye rce(s) Supporting Document(s) phosphorus level 4.3 mg/dL 2.5-4.9 Phosphorus Level AT [facility]) ID Date Data Source [id number] 02/17/2020 08:19:00 PM EST HEXT ([facility]) Name Value Range Interpretation Code Description Data Kaye rce(s) Supporting Document(s) glucose, fasting 314 mg/dL 70-100 Above high normal Glucose, Fas ting ROMAN ([facility]) blood urea nitrogen 48 mg/dL 7-18 Above high normal Blood Ure a Nitrogen ROMAN ([facility]) creatinine for GFR 1.81 mg/dL 0.55-1.30 Above high normal Creatinine for GFR ROMAN ([facility]) glomerular filtration rate >58 Below low normal Beata merular Filtration Rate ROMAN ([facility]) sodium level 134 mEq/L 136-145 Below low normal Sodium Level ATHE NA ([facility]) potassium serum 3.5 mEq/L 3.5-5.1 Potassium Serum ATHE NA ([facility]) calcium level 8.9 mg/dL 8.5-10.1 Calcium Level ROMAN ( [facility]) chloride level 98 mEq/L 98-107 Chloride Level ROMAN ([facility]) carbon dioxide level 19 mEq/L 21-32 Below low normal Carbon Di oxide Level ROMAN ([facility]) anion gap 17 mEq/L 8-16 Above high normal Anion Gap HEXT ([facility]) ID Date Data Source [id number] 02/17/2020 08:19:00 PM EST ROMAN ([facility]) Name Value Range Interpretation Code Description Data Kaye rce(s) Supporting Document(s) phosphorus level 4.3 mg/dL 2.5-4.9 Phosphorus Level AT [facility] ([facility]) ID Date Data Source [id number] 02/17/2020 08:19:00 PM EST ROMAN ([facility]) Name Value Range Interpretation Code Description Data Kaye rce(s) Supporting Document(s) blood urea nitrogen 48 mg/dL 7-18 Above high normal Blood Ure a Nitrogen ROMAN ([facility]) glucose, fasting 314 mg/dL 70-100 Above high normal Glucose, Fas ting ROMAN ([facility]) creatinine for GFR 1.81 mg/dL 0.55-1.30 Above high normal Creatinine for GFR ROMAN ([facility]) sodium level 134 mEq/L 136-145 Below low normal Sodium Level ATHE NA ([facility]) glomerular filtration rate >58 Below low normal Beata merular Filtration Rate ROMAN ([facility]) chloride level 98 mEq/L 98-107 Chloride Level ROMAN ([facility]) potassium serum 3.5 mEq/L 3.5-5.1 Potassium Serum ATHE NA ([facility]) carbon dioxide level 19 mEq/L 21-32 Below low normal Carbon Di oxide Level ROMAN ([facility]) calcium level 8.9 mg/dL 8.5-10.1 Calcium Level ROMAN ( [facility]) anion gap 17 mEq/L 8-16 Above high normal Anion Gap ROMAN ([facility]) ID Date Data Source [id number] 02/17/2020 08:19:00 PM EST ROMAN ([facility]) Name Value Range Interpretation Code Description Data Kaye rce(s) Supporting Document(s) phosphorus level 4.3 mg/dL 2.5-4.9 Phosphorus Level AT [facility] ([facility]) ID Date Data Source [id number] 02/17/2020 08:19:00 PM EST ROMAN ([facility]) Name Value Range Interpretation Code Description Data Kaye rce(s) Supporting Document(s) glucose, fasting 314 mg/dL 70-100 Above high normal Glucose, Fas ting ROMAN ([facility]) creatinine for GFR 1.81 mg/dL 0.55-1.30 Above high normal Creatinine for GFR ROMAN ([facility]) sodium level 134 mEq/L 136-145 Below low normal Sodium Level ATHE NA ([facility]) glomerular filtration rate >58 Below low normal Beata merular Filtration Rate ROMAN ([facility]) blood urea nitrogen 48 mg/dL 7-18 Above high normal Blood Ure a Nitrogen ROMAN ([facility]) carbon dioxide level 19 mEq/L 21-32 Below low normal Carbon Di oxide Level ROMAN ([facility]) potassium serum 3.5 mEq/L 3.5-5.1 Potassium Serum ATHE NA ([facility]) chloride level 98 mEq/L 98-107 Chloride Level HEXT ([facility]) calcium level 8.9 mg/dL 8.5-10.1 Calcium Level ROMAN ( [facility]) anion gap 17 mEq/L 8-16 Above high normal Anion Gap HEXT ([facility]) ID Date Data Source [id number] 02/17/2020 08:19:00 PM EST ROMAN ([facility]) Name Value Range Interpretation Code Description Data Kaye rce(s) Supporting Document(s) phosphorus level 4.3 mg/dL 2.5-4.9 Phosphorus Level AT [facility] ([facility]) ID Date Data Source [id number] 02/17/2020 08:19:00 PM EST ROMAN ([facility]) Name Value Range Interpretation Code Description Data Kaye rce(s) Supporting Document(s) glucose, fasting 314 mg/dL 70-100 Above high normal Glucose, Fas ting HEXT ([facility]) blood urea nitrogen 48 mg/dL 7-18 Above high normal Blood Ure a Nitrogen ROMAN ([facility]) creatinine for GFR 1.81 mg/dL 0.55-1.30 Above high normal Creatinine for GFR ROMAN ([facility]) glomerular filtration rate >58 Below low normal Beata merular Filtration Rate ROMAN ([facility]) sodium level 134 mEq/L 136-145 Below low normal Sodium Level ATHE NA ([facility]) potassium serum 3.5 mEq/L 3.5-5.1 Potassium Serum ATHE NA ([facility]) carbon dioxide level 19 mEq/L 21-32 Below low normal Carbon Di oxide Level ROMAN ([facility]) chloride level 98 mEq/L 98-107 Chloride Level ROMAN ([facility]) anion gap 17 mEq/L 8-16 Above high normal Anion Gap ROMAN ([facility]) calcium level 8.9 mg/dL 8.5-10.1 Calcium Level HEXT ( [facility]) ID Date Data Source [id number] 02/17/2020 08:19:00 PM EST ROMAN ([facility]) Name Value Range Interpretation Code Description Data Kaye rce(s) Supporting Document(s) phosphorus level 4.3 mg/dL 2.5-4.9 Phosphorus Level AT [facility] ([facility]) ID Date Data Source [id number] 02/17/2020 08:19:00 PM EST ROMAN ([facility]) Name Value Range Interpretation Code Description Data Kaye rce(s) Supporting Document(s) glucose, fasting 314 mg/dL 70-100 Above high normal Glucose, Fas ting HEXT ([facility]) blood urea nitrogen 48 mg/dL 7-18 Above high normal Blood Ure a Nitrogen ROMAN ([facility]) creatinine for GFR 1.81 mg/dL 0.55-1.30 Above high normal Creatinine for GFR ROMAN ([facility]) glomerular filtration rate >58 Below low normal Beata merular Filtration Rate ROMAN ([facility]) sodium level 134 mEq/L 136-145 Below low normal Sodium Level ATHE NA ([facility]) carbon dioxide level 19 mEq/L 21-32 Below low normal Carbon Di oxide Level ROMAN ([facility]) potassium serum 3.5 mEq/L 3.5-5.1 Potassium Serum ATHE NA ([facility]) chloride level 98 mEq/L 98-107 Chloride Level ROMAN ([facility]) anion gap 17 mEq/L 8-16 Above high normal Anion Gap ROMAN ([facility]) calcium level 8.9 mg/dL 8.5-10.1 Calcium Level ROMAN ( [facility]) ID Date Data Source [id number] 02/17/2020 08:19:00 PM EST ROMAN ([facility]) Name Value Range Interpretation Code Description Data Kaye rce(s) Supporting Document(s) phosphorus level 4.3 mg/dL 2.5-4.9 Phosphorus Level AT [facility] ([facility]) ID Date Data Source [id number] 02/17/2020 08:19:00 PM EST ROMAN ([facility]) Name Value Range Interpretation Code Description Data Kaye rce(s) Supporting Document(s) blood urea nitrogen 48 mg/dL 7-18 Above high normal Blood Ure a Nitrogen ROMAN ([facility]) glomerular filtration rate >58 Below low normal Beata merular Filtration Rate ROMAN ([facility]) glucose, fasting 314 mg/dL 70-100 Above high normal Glucose, Fas ting ROMAN ([facility]) creatinine for GFR 1.81 mg/dL 0.55-1.30 Above high normal Creatinine for GFR ROMAN ([facility]) sodium level 134 mEq/L 136-145 Below low normal Sodium Level ATHE NA ([facility]) potassium serum 3.5 mEq/L 3.5-5.1 Potassium Serum ATHE NA ([facility]) carbon dioxide level 19 mEq/L 21-32 Below low normal Carbon Di oxide Level ROMAN ([facility]) chloride level 98 mEq/L 98-107 Chloride Level ROMAN ([facility]) anion gap 17 mEq/L 8-16 Above high normal Anion Gap ROMAN ([facility]) calcium level 8.9 mg/dL 8.5-10.1 Calcium Level ROMAN ( [facility]) ID Date Data Source [id number] 02/17/2020 07:12:00 PM EST ROMAN ([facility]) Name Value Range Interpretation Code Description Data Kaye rce(s) Supporting Document(s) bedside glucose 327 mg/dL 70-105 Above high normal Bedside Gluco se ROMAN ([facility]) ID Date Data Source [id number] 02/17/2020 07:12:00 PM EST ROMAN ([facility]) Name Value Range Interpretation Code Description Data Kaye rce(s) Supporting Document(s) bedside glucose 327 mg/dL 70-105 Above high normal Bedside Gluco se HEXT ([facility]) ID Date Data Source [id number] 02/17/2020 07:12:00 PM EST ROMAN ([facility]) Name Value Range Interpretation Code Description Data Kaye rce(s) Supporting Document(s) bedside glucose 327 mg/dL 70-105 Above high normal Bedside Gluco se ROMAN ([facility]) ID Date Data Source [id number] 02/17/2020 07:12:00 PM EST ROMAN ([facility]) Name Value Range Interpretation Code Description Data Kaye rce(s) Supporting Document(s) bedside glucose 327 mg/dL 70-105 Above high normal Bedside Gluco se ROMAN ([facility]) ID Date Data Source [id number] 02/17/2020 07:12:00 PM EST ROMAN ([facility]) Name Value Range Interpretation Code Description Data Kaye rce(s) Supporting Document(s) bedside glucose 327 mg/dL 70-105 Above high normal Bedside Gluco se ROMAN ([facility]) ID Date Data Source [id number] 02/17/2020 07:12:00 PM EST ROMAN ([facility]) Name Value Range Interpretation Code Description Data Kaye rce(s) Supporting Document(s) bedside glucose 327 mg/dL 70-105 Above high normal Bedside Gluco se ROMAN ([facility]) ID Date Data Source [id number] 02/17/2020 07:12:00 PM EST ROMAN ([facility]) Name Value Range Interpretation Code Description Data Kaye rce(s) Supporting Document(s) bedside glucose 327 mg/dL 70-105 Above high normal Bedside Gluco se ROMAN ([facility]) ID Date Data Source [id number] 02/17/2020 06:57:00 PM EST ROMAN ([facility]) Name Value Range Interpretation Code Description Data Kaye rce(s) Supporting Document(s) phosphorus level 4.4 mg/dL 2.5-4.9 Phosphorus Level AT [facility] ([facility]) ID Date Data Source [id number] 02/17/2020 06:57:00 PM EST ROMAN ([facility]) Name Value Range Interpretation Code Description Data Kaye rce(s) Supporting Document(s) glucose, fasting 329 mg/dL 70-100 Above high normal Glucose, Fas ting ROMAN ([facility]) sodium level 132 mEq/L 136-145 Below low normal Sodium Level ATHE NA ([facility]) blood urea nitrogen 50 mg/dL 7-18 Above high normal Blood Ure a Nitrogen ROMAN ([facility]) creatinine for GFR 1.77 mg/dL 0.55-1.30 Above high normal Creatinine for GFR ROMAN ([facility]) glomerular filtration rate >58 Below low normal Beata merular Filtration Rate ROMAN ([facility]) carbon dioxide level 18 mEq/L 21-32 Below low normal Carbon Di oxide Level ROMAN ([facility]) anion gap 18 mEq/L 8-16 Above high normal Anion Gap ROMAN ([facility]) chloride level 96 mEq/L 98-107 Below low normal Chloride Level ROMAN ([facility]) potassium serum 3.9 mEq/L 3.5-5.1 Potassium Serum ATHE NA ([facility]) calcium level 8.9 mg/dL 8.5-10.1 Calcium Level HEXT ( [facility]) ID Date Data Source [id number] 02/17/2020 06:57:00 PM EST HEXT ([facility]) Name Value Range Interpretation Code Description Data Kaye rce(s) Supporting Document(s) phosphorus level 4.4 mg/dL 2.5-4.9 Phosphorus Level AT [facility]) ID Date Data Source [id number] 02/17/2020 06:57:00 PM EST HEXT ([facility]) Name Value Range Interpretation Code Description Data Kaye rce(s) Supporting Document(s) glucose, fasting 329 mg/dL 70-100 Above high normal Glucose, Fas ting ROMAN ([facility]) blood urea nitrogen 50 mg/dL 7-18 Above high normal Blood Ure a Nitrogen ROMAN ([facility]) creatinine for GFR 1.77 mg/dL 0.55-1.30 Above high normal Creatinine for GFR ROMAN ([facility]) glomerular filtration rate >58 Below low normal Beata merular Filtration Rate ROMAN ([facility]) potassium serum 3.9 mEq/L 3.5-5.1 Potassium Serum ATHE NA ([facility]) sodium level 132 mEq/L 136-145 Below low normal Sodium Level ATHE NA ([facility]) chloride level 96 mEq/L 98-107 Below low normal Chloride Level ROMAN ([facility]) carbon dioxide level 18 mEq/L 21-32 Below low normal Carbon Di oxide Level ROMAN ([facility]) anion gap 18 mEq/L 8-16 Above high normal Anion Gap ROMAN ([facility]) calcium level 8.9 mg/dL 8.5-10.1 Calcium Level ROMAN ( [facility]) ID Date Data Source [id number] 02/17/2020 06:57:00 PM EST ROMAN ([facility]) Name Value Range Interpretation Code Description Data Kaye rce(s) Supporting Document(s) phosphorus level 4.4 mg/dL 2.5-4.9 Phosphorus Level AT [facility] ([facility]) ID Date Data Source [id number] 02/17/2020 06:57:00 PM EST ROMAN ([facility]) Name Value Range Interpretation Code Description Data Kaye rce(s) Supporting Document(s) glucose, fasting 329 mg/dL 70-100 Above high normal Glucose, Fas ting ROMAN ([facility]) creatinine for GFR 1.77 mg/dL 0.55-1.30 Above high normal Creatinine for GFR ROMAN ([facility]) blood urea nitrogen 50 mg/dL 7-18 Above high normal Blood Ure a Nitrogen ROMAN ([facility]) glomerular filtration rate >58 Below low normal Beata merular Filtration Rate ROMAN ([facility]) potassium serum 3.9 mEq/L 3.5-5.1 Potassium Serum ATHE NA ([facility]) sodium level 132 mEq/L 136-145 Below low normal Sodium Level ATHE NA ([facility]) chloride level 96 mEq/L 98-107 Below low normal Chloride Level ROMAN ([facility]) anion gap 18 mEq/L 8-16 Above high normal Anion Gap ROMAN ([facility]) calcium level 8.9 mg/dL 8.5-10.1 Calcium Level ROMAN ( [facility]) carbon dioxide level 18 mEq/L 21-32 Below low normal Carbon Di oxide Level HEXT ([facility]) ID Date Data Source [id number] 02/17/2020 06:57:00 PM EST ROMAN ([facility]) Name Value Range Interpretation Code Description Data Kaye rce(s) Supporting Document(s) phosphorus level 4.4 mg/dL 2.5-4.9 Phosphorus Level AT [facility] ([facility]) ID Date Data Source [id number] 02/17/2020 06:57:00 PM EST ROMAN ([facility]) Name Value Range Interpretation Code Description Data Kaye rce(s) Supporting Document(s) glucose, fasting 329 mg/dL 70-100 Above high normal Glucose, Fas ting ROMAN ([facility]) blood urea nitrogen 50 mg/dL 7-18 Above high normal Blood Ure a Nitrogen HEXT ([facility]) creatinine for GFR 1.77 mg/dL 0.55-1.30 Above high normal Creatinine for GFR HEXT ([facility]) potassium serum 3.9 mEq/L 3.5-5.1 Potassium Serum ATHE NA ([facility]) glomerular filtration rate >58 Below low normal Beata merular Filtration Rate ROMAN ([facility]) sodium level 132 mEq/L 136-145 Below low normal Sodium Level ATHE NA ([facility]) carbon dioxide level 18 mEq/L 21-32 Below low normal Carbon Di oxide Level ROMAN ([facility]) chloride level 96 mEq/L 98-107 Below low normal Chloride Level ROMAN ([facility]) anion gap 18 mEq/L 8-16 Above high normal Anion Gap ROMAN ([facility]) calcium level 8.9 mg/dL 8.5-10.1 Calcium Level HEXT ( [facility]) ID Date Data Source [id number] 02/17/2020 06:57:00 PM EST ROMAN ([facility]) Name Value Range Interpretation Code Description Data Kaye rce(s) Supporting Document(s) phosphorus level 4.4 mg/dL 2.5-4.9 Phosphorus Level AT [facility] ([facility]) ID Date Data Source [id number] 02/17/2020 06:57:00 PM EST ROMAN ([facility]) Name Value Range Interpretation Code Description Data Kaye rce(s) Supporting Document(s) blood urea nitrogen 50 mg/dL 7-18 Above high normal Blood Ure a Nitrogen ROMAN ([facility]) creatinine for GFR 1.77 mg/dL 0.55-1.30 Above high normal Creatinine for GFR ROMAN ([facility]) glucose, fasting 329 mg/dL 70-100 Above high normal Glucose, Fas ting ROMAN ([facility]) potassium serum 3.9 mEq/L 3.5-5.1 Potassium Serum ATHE NA ([facility]) sodium level 132 mEq/L 136-145 Below low normal Sodium Level ATHE NA ([facility]) glomerular filtration rate >58 Below low normal Beata merular Filtration Rate ROMAN ([facility]) anion gap 18 mEq/L 8-16 Above high normal Anion Gap ROMAN ([facility]) chloride level 96 mEq/L 98-107 Below low normal Chloride Level ROMAN ([facility]) carbon dioxide level 18 mEq/L 21-32 Below low normal Carbon Di oxide Level ROMAN ([facility]) calcium level 8.9 mg/dL 8.5-10.1 Calcium Level HEXT ( [facility]) ID Date Data Source [id number] 02/17/2020 06:57:00 PM EST ROMAN ([facility]) Name Value Range Interpretation Code Description Data Kaye rce(s) Supporting Document(s) phosphorus level 4.4 mg/dL 2.5-4.9 Phosphorus Level AT TRAM ([facility]) ID Date Data Source [id number] 02/17/2020 06:57:00 PM EST ROMAN ([facility]) Name Value Range Interpretation Code Description Data Kaye rce(s) Supporting Document(s) blood urea nitrogen 50 mg/dL 7-18 Above high normal Blood Ure a Nitrogen ROMAN ([facility]) creatinine for GFR 1.77 mg/dL 0.55-1.30 Above high normal Creatinine for GFR ROMAN ([facility]) glucose, fasting 329 mg/dL 70-100 Above high normal Glucose, Fas ting ROMAN ([facility]) chloride level 96 mEq/L 98-107 Below low normal Chloride Level ROMAN ([facility]) potassium serum 3.9 mEq/L 3.5-5.1 Potassium Serum ATHE NA ([facility]) sodium level 132 mEq/L 136-145 Below low normal Sodium Level ATHE NA ([facility]) glomerular filtration rate >58 Below low normal Beata merular Filtration Rate ROMAN ([facility]) anion gap 18 mEq/L 8-16 Above high normal Anion Gap ROMAN ([facility]) carbon dioxide level 18 mEq/L 21-32 Below low normal Carbon Di oxide Level ROMAN ([facility]) calcium level 8.9 mg/dL 8.5-10.1 Calcium Level HEXT ( [facility]) ID Date Data Source [id number] 02/17/2020 06:57:00 PM EST HEXT ([facility]) Name Value Range Interpretation Code Description Data Kaye rce(s) Supporting Document(s) phosphorus level 4.4 mg/dL 2.5-4.9 Phosphorus Level AT [facility]) ID Date Data Source [id number] 02/17/2020 06:57:00 PM EST HEXT ([facility]) Name Value Range Interpretation Code Description Data Kaye rce(s) Supporting Document(s) blood urea nitrogen 50 mg/dL 7-18 Above high normal Blood Ure a Nitrogen ROMAN ([facility]) creatinine for GFR 1.77 mg/dL 0.55-1.30 Above high normal Creatinine for GFR ROMAN ([facility]) glomerular filtration rate >58 Below low normal Beata merular Filtration Rate ROMAN ([facility]) glucose, fasting 329 mg/dL 70-100 Above high normal Glucose, Fas ting ROMAN ([facility]) sodium level 132 mEq/L 136-145 Below low normal Sodium Level ATHE NA ([facility]) chloride level 96 mEq/L 98-107 Below low normal Chloride Level ROMAN ([facility]) carbon dioxide level 18 mEq/L 21-32 Below low normal Carbon Di oxide Level ROMAN ([facility]) potassium serum 3.9 mEq/L 3.5-5.1 Potassium Serum ATHE NA ([facility]) anion gap 18 mEq/L 8-16 Above high normal Anion Gap ROMAN ([facility]) calcium level 8.9 mg/dL 8.5-10.1 Calcium Level ROMAN ( [facility]) ID Date Data Source [id number] 02/17/2020 04:21:00 PM EST ROMAN ([facility]) Name Value Range Interpretation Code Description Data Kaye rce(s) Supporting Document(s) osmolality serum 311 mOsm/kg 275-295 Above high normal Osmolality Serum ROMAN ([facility]) ID Date Data Source [id number] 02/17/2020 04:21:00 PM EST ROMAN ([facility]) Name Value Range Interpretation Code Description Data Kaye rce(s) Supporting Document(s) lipase 68 U/L 73-393 Below low normal Lipase HEXT ( [facility]) ID Date Data Source [id number] 02/17/2020 04:21:00 PM EST HEXT ([facility]) Name Value Range Interpretation Code Description Data Kaye rce(s) Supporting Document(s) acetone/ketone > 46.00 <2.81 Above high normal Acetone/ketone ROMAN ([facility]) ID Date Data Source [id number] 02/17/2020 04:21:00 PM EST ROMAN ([facility]) Name Value Range Interpretation Code Description Data Kaye rce(s) Supporting Document(s) glucose, fasting 337 mg/dL 70-100 Above high normal Glucose, Fas ting ROMAN ([facility]) creatinine for GFR 1.73 mg/dL 0.55-1.30 Above high normal Creatinine for GFR HEXT ([facility]) sodium level 132 mEq/L 136-145 Below low normal Sodium Level ATHE NA ([facility]) glomerular filtration rate >58 Below low normal Beata merular Filtration Rate ROMAN ([facility]) blood urea nitrogen 49 mg/dL 7-18 Above high normal Blood Ure a Nitrogen ROMAN ([facility]) carbon dioxide level 17 mEq/L 21-32 Below low normal Carbon Di oxide Level ROMAN ([facility]) chloride level 95 mEq/L 98-107 Below low normal Chloride Level ROMAN ([facility]) anion gap 20 mEq/L 8-16 Above high normal Anion Gap ROMAN ([facility]) potassium serum 4.1 mEq/L 3.5-5.1 Potassium Serum ATHE NA ([facility]) calcium level 9.5 mg/dL 8.5-10.1 Calcium Level ROMAN ( [facility]) ID Date Data Source [id number] 02/17/2020 04:21:00 PM EST ROMAN ([facility]) Name Value Range Interpretation Code Description Data Kaye rce(s) Supporting Document(s) AST/SGOT 22 U/L 7-37 AST/SGOT ROMAN ([facility]) ALT/SGPT 18 U/L 12-78 ALT/SGPT ROMAN ([facility]) alkaline phosphatase 79 U/L 45-117 Alkaline Phosph atase ROMAN ([facility]) bilirubin,direct 0.2 mg/dL 0.0-0.2 Bilirubin,direct AT TRAM ([facility]) total protein 8.2 gm/dL 6.4-8.2 Total Protein ROMAN ( [facility]) bilirubin,total 1.0 mg/dL 0.2-1.0 Bilirubin,total ATHE ([facility]) albumin/globulin ratio 1.2-2.2 Below low normal Albumin /globulin Ratio ROMAN ([facility]) albumin 4.3 gm/dL 3.2-5.2 Albumin ROMAN ([facility]) ID Date Data Source [id number] 02/17/2020 04:21:00 PM EST ROMAN ([facility]) Name Value Range Interpretation Code Description Data Kaye rce(s) Supporting Document(s) osmolality serum 311 mOsm/kg 275-295 Above high normal Osmolality Serum ROMAN ([facility]) ID Date Data Source [id number] 02/17/2020 04:21:00 PM EST ROMAN ([facility]) Name Value Range Interpretation Code Description Data Kaye rce(s) Supporting Document(s) lipase 68 U/L 73-393 Below low normal Lipase HEXT ( [facility]) ID Date Data Source [id number] 02/17/2020 04:21:00 PM EST ROMAN ([facility]) Name Value Range Interpretation Code Description Data Kaye rce(s) Supporting Document(s) acetone/ketone > 46.00 <2.81 Above high normal Acetone/ketone [facility]) ID Date Data Source [id number] 02/17/2020 04:21:00 PM EST HEXT ([facility]) Name Value Range Interpretation Code Description Data Kaye rce(s) Supporting Document(s) glucose, fasting 337 mg/dL 70-100 Above high normal Glucose, Fas ting ROMAN ([facility]) creatinine for GFR 1.73 mg/dL 0.55-1.30 Above high normal Creatinine for GFR ROMAN ([facility]) glomerular filtration rate >58 Below low normal Beata merular Filtration Rate ROMAN ([facility]) blood urea nitrogen 49 mg/dL 7-18 Above high normal Blood Ure a Nitrogen ROMAN ([facility]) sodium level 132 mEq/L 136-145 Below low normal Sodium Level ATHE NA ([facility]) chloride level 95 mEq/L 98-107 Below low normal Chloride Level ROMAN ([facility]) potassium serum 4.1 mEq/L 3.5-5.1 Potassium Serum ATHE NA ([facility]) calcium level 9.5 mg/dL 8.5-10.1 Calcium Level HEXT ( [facility]) anion gap 20 mEq/L 8-16 Above high normal Anion Gap ROMAN ([facility]) carbon dioxide level 17 mEq/L 21-32 Below low normal Carbon Di oxide Level ROMAN ([facility]) ID Date Data Source [id number] 02/17/2020 04:21:00 PM EST ROMAN ([facility]) Name Value Range Interpretation Code Description Data Kaye rce(s) Supporting Document(s) ALT/SGPT 18 U/L 12-78 ALT/SGPT ROMAN ([facility]) AST/SGOT 22 U/L 7-37 AST/SGOT ROMAN ([facility]) alkaline phosphatase 79 U/L 45-117 Alkaline Phosph atase ROMAN ([facility]) bilirubin,total 1.0 mg/dL 0.2-1.0 Bilirubin,total ATHE NA ([facility]) total protein 8.2 gm/dL 6.4-8.2 Total Protein ROMAN ( [facility]) bilirubin,direct 0.2 mg/dL 0.0-0.2 Bilirubin,direct AT TRAM ([facility]) albumin 4.3 gm/dL 3.2-5.2 Albumin ROMAN ([facility]) albumin/globulin ratio 1.2-2.2 Below low normal Albumin /globulin Ratio ROMAN ([facility]) ID Date Data Source [id number] 02/17/2020 04:21:00 PM EST ROMAN ([facility]) Name Value Range Interpretation Code Description Data Kaye rce(s) Supporting Document(s) osmolality serum 311 mOsm/kg 275-295 Above high normal Osmolality Serum ROMAN ([facility]) ID Date Data Source [id number] 02/17/2020 04:21:00 PM EST ROMAN ([facility]) Name Value Range Interpretation Code Description Data Kaye rce(s) Supporting Document(s) lipase 68 U/L 73-393 Below low normal Lipase ROMAN ( [facility]) ID Date Data Source [id number] 02/17/2020 04:21:00 PM EST ROMAN ([facility]) Name Value Range Interpretation Code Description Data Kaye rce(s) Supporting Document(s) acetone/ketone > 46.00 <2.81 Above high normal Acetone/ketone ROMAN ([facility]) ID Date Data Source [id number] 02/17/2020 04:21:00 PM EST ROMAN ([facility]) Name Value Range Interpretation Code Description Data Kaye rce(s) Supporting Document(s) blood urea nitrogen 49 mg/dL 7-18 Above high normal Blood Ure a Nitrogen ROMAN ([facility]) creatinine for GFR 1.73 mg/dL 0.55-1.30 Above high normal Creatinine for GFR HEXT ([facility]) glucose, fasting 337 mg/dL 70-100 Above high normal Glucose, Fas ting ROMAN ([facility]) sodium level 132 mEq/L 136-145 Below low normal Sodium Level ATHE NA ([facility]) glomerular filtration rate >58 Below low normal Beata merular Filtration Rate ROMAN ([facility]) potassium serum 4.1 mEq/L 3.5-5.1 Potassium Serum ATHE NA ([facility]) carbon dioxide level 17 mEq/L 21-32 Below low normal Carbon Di oxide Level ROMAN ([facility]) chloride level 95 mEq/L 98-107 Below low normal Chloride Level ROMAN ([facility]) anion gap 20 mEq/L 8-16 Above high normal Anion Gap ROMAN ([facility]) calcium level 9.5 mg/dL 8.5-10.1 Calcium Level HEXT ( [facility]) ID Date Data Source [id number] 02/17/2020 04:21:00 PM EST ROMAN ([facility]) Name Value Range Interpretation Code Description Data Kaye rce(s) Supporting Document(s) AST/SGOT 22 U/L 7-37 AST/SGOT ROMAN ([facility]) ALT/SGPT 18 U/L 12-78 ALT/SGPT ROMAN ([facility]) alkaline phosphatase 79 U/L 45-117 Alkaline Phosph atase ROMAN ([facility]) bilirubin,total 1.0 mg/dL 0.2-1.0 Bilirubin,total ATHE NA ([facility]) bilirubin,direct 0.2 mg/dL 0.0-0.2 Bilirubin,direct AT TRAM ([facility]) total protein 8.2 gm/dL 6.4-8.2 Total Protein ROMAN ( [facility]) albumin 4.3 gm/dL 3.2-5.2 Albumin ROMAN ([facility]) albumin/globulin ratio 1.2-2.2 Below low normal Albumin /globulin Ratio ROMAN ([facility]) ID Date Data Source [id number] 02/17/2020 04:21:00 PM EST ROMAN ([facility]) Name Value Range Interpretation Code Description Data Kaye rce(s) Supporting Document(s) osmolality serum 311 mOsm/kg 275-295 Above high normal Osmolality Serum ROMAN ([facility]) ID Date Data Source [id number] 02/17/2020 04:21:00 PM EST ROMAN ([facility]) Name Value Range Interpretation Code Description Data Kaye rce(s) Supporting Document(s) lipase 68 U/L 73-393 Below low normal Lipase ROMAN ( [facility]) ID Date Data Source [id number] 02/17/2020 04:21:00 PM EST ROMAN ([facility]) Name Value Range Interpretation Code Description Data Kaye rce(s) Supporting Document(s) acetone/ketone > 46.00 <2.81 Above high normal [facility] Data Source [id number] 02/17/2020 04:21:00 PM EST ROMAN ([facility]) Name Value Range Interpretation Code Description Data Kaye rce(s) Supporting Document(s) creatinine for GFR 1.73 mg/dL 0.55-1.30 Above high normal Creatinine for GFR ROMAN ([facility]) glucose, fasting 337 mg/dL 70-100 Above high normal Glucose, Fas ting ROMAN ([facility]) blood urea nitrogen 49 mg/dL 7-18 Above high normal Blood Ure a Nitrogen ROMAN ([facility]) sodium level 132 mEq/L 136-145 Below low normal Sodium Level ATHE ([facility]) glomerular filtration rate >58 Below low normal Beata merular Filtration Rate ROMAN ([facility]) potassium serum 4.1 mEq/L 3.5-5.1 Potassium Serum ATHE ([facility]) carbon dioxide level 17 mEq/L 21-32 Below low normal Carbon Di oxide Level ROMAN ([facility]) anion gap 20 mEq/L 8-16 Above high normal Anion Gap ROMAN ([facility]) chloride level 95 mEq/L 98-107 Below low normal Chloride Level ROMAN ([facility]) calcium level 9.5 mg/dL 8.5-10.1 Calcium Level HEXT ( [facility]) ID Date Data Source [id number] 02/17/2020 04:21:00 PM EST ROMAN ([facility]) Name Value Range Interpretation Code Description Data Kaye rce(s) Supporting Document(s) AST/SGOT 22 U/L 7-37 AST/SGOT ROMAN ([facility]) alkaline phosphatase 79 U/L 45-117 Alkaline Phosph atase ROMAN ([facility]) ALT/SGPT 18 U/L 12-78 ALT/SGPT ROMAN ([facility]) total protein 8.2 gm/dL 6.4-8.2 Total Protein ROMAN ( [facility]) bilirubin,total 1.0 mg/dL 0.2-1.0 Bilirubin,total ATHE ([facility]) bilirubin,direct 0.2 mg/dL 0.0-0.2 Bilirubin,direct AT TRAM [facility]) albumin 4.3 gm/dL 3.2-5.2 Albumin [facility] ([facility] [facility] albumin/globulin ratio 1.2-2.2 Below low normal Albumin /globulin Ratio ROMAN ([facility]) ID Date Data Source [id number] 02/17/2020 04:21:00 PM EST ROMAN ([facility]) Name Value Range Interpretation Code Description Data Kaye rce(s) Supporting Document(s) osmolality serum 311 mOsm/kg 275-295 Above high normal Osmolality Serum ROMAN ([facility]) ID Date Data Source [id number] 02/17/2020 04:21:00 PM EST ROMAN ([facility]) Name Value Range Interpretation Code Description Data Kaye rce(s) Supporting Document(s) lipase 68 U/L 73-393 Below low normal Lipase ROMAN ( [facility]) ID Date Data Source [id number] 02/17/2020 04:21:00 PM EST ROMAN ([facility]) Name Value Range Interpretation Code Description Data Kaye rce(s) Supporting Document(s) acetone/ketone > 46.00 <2.81 Above high normal Acetone/ketone HEXT ([facility]) ID Date Data Source [id number] 02/17/2020 04:21:00 PM EST ROMAN ([facility]) Name Value Range Interpretation Code Description Data Kaye rce(s) Supporting Document(s) glucose, fasting 337 mg/dL 70-100 Above high normal Glucose, Fas ting ROMAN ([facility]) blood urea nitrogen 49 mg/dL 7-18 Above high normal Blood Ure a Nitrogen ROMAN ([facility]) creatinine for GFR 1.73 mg/dL 0.55-1.30 Above high normal Creatinine for GFR ROMAN ([facility]) glomerular filtration rate >58 Below low normal Beata merular Filtration Rate ROMAN ([facility]) sodium level 132 mEq/L 136-145 Below low normal Sodium Level ATHE NA ([facility]) potassium serum 4.1 mEq/L 3.5-5.1 Potassium Serum ATHE NA ([facility]) chloride level 95 mEq/L 98-107 Below low normal Chloride Level ROMAN ([facility]) calcium level 9.5 mg/dL 8.5-10.1 Calcium Level ROMAN ( [facility]) anion gap 20 mEq/L 8-16 Above high normal Anion Gap ROMAN ([facility]) carbon dioxide level 17 mEq/L 21-32 Below low normal Carbon Di oxide Level ROMAN ([facility]) ID Date Data Source [id number] 02/17/2020 04:21:00 PM EST ROMAN ([facility]) Name Value Range Interpretation Code Description Data Kaye rce(s) Supporting Document(s) AST/SGOT 22 U/L 7-37 AST/SGOT [facility] ([facility]) ALT/SGPT 18 U/L 12-78 ALT/SGPT [facility] ([facility]) alkaline phosphatase 79 U/L 45-117 Alkaline Phosph atase ROMAN ([facility]) bilirubin,total 1.0 mg/dL 0.2-1.0 Bilirubin,total ATHE ([facility]) bilirubin,direct 0.2 mg/dL 0.0-0.2 Bilirubin,direct AT TRAM ([facility]) total protein 8.2 gm/dL 6.4-8.2 Total Protein ROMAN ( [facility]) albumin 4.3 gm/dL 3.2-5.2 Albumin ROMAN ([facility]) albumin/globulin ratio 1.2-2.2 Below low normal Albumin /globulin Ratio ROMAN ([facility]) ID Date Data Source [id number] 02/17/2020 04:21:00 PM EST ROMAN ([facility]) Name Value Range Interpretation Code Description Data Kaye rce(s) Supporting Document(s) osmolality serum 311 mOsm/kg 275-295 Above high normal Osmolality Serum ROMAN ([facility]) ID Date Data Source [id number] 02/17/2020 04:21:00 PM EST ROMAN ([facility]) Name Value Range Interpretation Code Description Data Kaye rce(s) Supporting Document(s) lipase 68 U/L 73-393 Below low normal Lipase ROMAN ( [facility]) ID Date Data Source [id number] 02/17/2020 04:21:00 PM EST ROMAN ([facility]) Name Value Range Interpretation Code Description Data Kaye rce(s) Supporting Document(s) acetone/ketone > 46.00 <2.81 Above high normal Acetone/ketone ROMAN ([facility]) ID Date Data Source [id number] 02/17/2020 04:21:00 PM EST ROMAN ([facility]) Name Value Range Interpretation Code Description Data Kaye rce(s) Supporting Document(s) glucose, fasting 337 mg/dL 70-100 Above high normal Glucose, Fas ting ROMAN ([facility]) creatinine for GFR 1.73 mg/dL 0.55-1.30 Above high normal Creatinine for GFR ROMAN ([facility]) blood urea nitrogen 49 mg/dL 7-18 Above high normal Blood Ure a Nitrogen ROMAN ([facility]) glomerular filtration rate >58 Below low normal Beata merular Filtration Rate ROMAN ([facility]) potassium serum 4.1 mEq/L 3.5-5.1 Potassium Serum ATHE NA ([facility]) chloride level 95 mEq/L 98-107 Below low normal Chloride Level ROMAN ([facility]) sodium level 132 mEq/L 136-145 Below low normal Sodium Level ATHE NA ([facility]) anion gap 20 mEq/L 8-16 Above high normal Anion Gap ROMAN ([facility]) carbon dioxide level 17 mEq/L 21-32 Below low normal Carbon Di oxide Level ROMAN ([facility]) calcium level 9.5 mg/dL 8.5-10.1 Calcium Level ROMAN ( [facility]) ID Date Data Source [id number] 02/17/2020 04:21:00 PM EST ROMAN ([facility]) Name Value Range Interpretation Code Description Data Kaye rce(s) Supporting Document(s) ALT/SGPT 18 U/L 12-78 ALT/SGPT [facility] ([facility]) AST/SGOT 22 U/L 7-37 AST/SGOT [facility]AN ([facility]) bilirubin,direct 0.2 mg/dL 0.0-0.2 Bilirubin,direct AT TRAM ([facility]) alkaline phosphatase 79 U/L 45-117 Alkaline Phosph atase ROMAN ([facility]) bilirubin,total 1.0 mg/dL 0.2-1.0 Bilirubin,total ATHE ([facility]) albumin 4.3 gm/dL 3.2-5.2 Albumin HEXT ([facility]) total protein 8.2 gm/dL 6.4-8.2 Total Protein ROMAN ( [facility]) albumin/globulin ratio 1.2-2.2 Below low normal Albumin /globulin Ratio ROMAN ([facility]) ID Date Data Source [id number] 02/17/2020 04:21:00 PM EST ROMAN ([facility]) Name Value Range Interpretation Code Description Data Kaye rce(s) Supporting Document(s) blood urea nitrogen 49 mg/dL 7-18 Above high normal Blood Ure a Nitrogen ROMAN ([facility]) glucose, fasting 337 mg/dL 70-100 Above high normal Glucose, Fas ting ROMAN ([facility]) sodium level 132 mEq/L 136-145 Below low normal Sodium Level ATHE NA ([facility]) potassium serum 4.1 mEq/L 3.5-5.1 Potassium Serum ATHE NA ([facility]) creatinine for GFR 1.73 mg/dL 0.55-1.30 Above high normal Creatinine for GFR ROMAN ([facility]) glomerular filtration rate >58 Below low normal Beata merular Filtration Rate ROMAN ([facility]) anion gap 20 mEq/L 8-16 Above high normal Anion Gap ROMAN ([facility]) calcium level 9.5 mg/dL 8.5-10.1 Calcium Level ROMAN ( [facility]) chloride level 95 mEq/L 98-107 Below low normal Chloride Level ROMAN ([facility]) carbon dioxide level 17 mEq/L 21-32 Below low normal Carbon Di oxide Level ROMAN ([facility]) ID Date Data Source [id number] 02/17/2020 04:21:00 PM EST ROMAN ([facility]) Name Value Range Interpretation Code Description Data Kaye rce(s) Supporting Document(s) ALT/SGPT 18 U/L 12-78 ALT/SGPT [facility] ([facility]) AST/SGOT 22 U/L 7-37 AST/SGOT [facility] ([facility]) alkaline phosphatase 79 U/L 45-117 Alkaline Phosph atase ROMAN ([facility]) bilirubin,total 1.0 mg/dL 0.2-1.0 Bilirubin,total ATHE NA ([facility]) total protein 8.2 gm/dL 6.4-8.2 Total Protein ROMAN ( [facility]) bilirubin,direct 0.2 mg/dL 0.0-0.2 Bilirubin,direct AT TRAM ([facility]) albumin 4.3 gm/dL 3.2-5.2 Albumin ROMAN ([facility]) albumin/globulin ratio 1.2-2.2 Below low normal Albumin /globulin Ratio ROMAN ([facility]) ID Date Data Source [id number] 02/17/2020 04:21:00 PM EST ROMAN ([facility]) Name Value Range Interpretation Code Description Data Kaye rce(s) Supporting Document(s) osmolality serum 311 mOsm/kg 275-295 Above high normal Osmolality Serum ROMAN ([facility]) ID Date Data Source [id number] 02/17/2020 04:21:00 PM EST ROMAN ([facility]) Name Value Range Interpretation Code Description Data Kaye rce(s) Supporting Document(s) lipase 68 U/L 73-393 Below low normal Lipase HEXT ( [facility]) ID Date Data Source [id number] 02/17/2020 04:21:00 PM EST HEXT ([facility]) Name Value Range Interpretation Code Description Data Kaye rce(s) Supporting Document(s) acetone/ketone > 46.00 <2.81 Above high normal Acetone/ketone HEXT ([facility]) ID Date Data Source [id number] 02/17/2020 01:36:00 PM EST [facility]) Name Value Range Interpretation Code Description Data Kaye rce(s) Supporting Document(s) sars covid-19 amplification negative negative Sars Cov id-19 Amplification [facility]) ID Date Data Source [id number] 02/17/2020 01:36:00 PM EST [facility]) Name Value Range Interpretation Code Description Data Kaye rce(s) Supporting Document(s) sars covid-19 amplification negative negative Sars Cov id-19 Amplification [facility]) ID Date Data Source [id number] 02/17/2020 01:36:00 PM EST [facility]) Name Value Range Interpretation Code Description Data Kaye rce(s) Supporting Document(s) sars covid-19 amplification negative negative Sars Cov id-19 Amplification [facility]) ID Date Data Source [id number] 02/17/2020 01:36:00 PM EST [facility]) Name Value Range Interpretation Code Description Data Kaye rce(s) Supporting Document(s) sars covid-19 amplification negative negative Sars Cov id-19 Amplification [facility]) ID Date Data Source [id number] 02/17/2020 01:36:00 PM EST HEXT ([facility]) Name Value Range Interpretation Code Description Data Kaye rce(s) Supporting Document(s) sars covid-19 amplification negative negative Sars Cov id-19 Amplification ROMAN ([facility]) ID Date Data Source [id number] 02/17/2020 01:36:00 PM EST ROMAN ([facility]) Name Value Range Interpretation Code Description Data Kaye rce(s) Supporting Document(s) sars covid-19 amplification negative negative Sars Cov id-19 Amplification [facility]EXT ([facility]) ID Date Data Source [id number] 02/17/2020 01:36:00 PM EST [facility]) Name Value Range Interpretation Code Description Data Kaye rce(s) Supporting Document(s) sars covid-19 amplification negative negative Sars Cov id-19 Amplification [facility]) ID Date Data Source [id number] 02/17/2020 01:25:00 PM EST HEXT ([facility]) Name Value Range Interpretation Code Description Data Kaye rce(s) Supporting Document(s) estimated average glucose 197 mg/dL 60-110 Above high norm al Estimated Average Glucose HEXT ([facility]) Hemoglobin A1c/Hemoglobin.total in Blood 8.5 % Hemoglobin a1C [facility]) ID Date Data Source [id number] 02/17/2020 01:25:00 PM EST [facility]) Name Value Range Interpretation Code Description Data Kaye rce(s) Supporting Document(s) venous partial pressure O2 83.8 mmHg 30.0-50.0 Above high nor mal Venous Partial Pressure O2 HEXT ([facility]) venous pH 7.371 units 7.330-7.430 Venous pH HEXT ([facility]) venous partial pressure CO2 30.6 mmHg 38.0-50.0 Below low nor mal Venous Partial Pressure CO2 ROMAN ([facility]) venous base excess -2.0-2.0 Below low normal Venous Base Excess ROMAN ([facility]) venous HCO3 17.3 mEq/L 23.0-27.0 Below low normal Venous HCO3 ROMAN ([facility]) venous total CO2 18.3 mEq/L 24.0-28.0 Below low normal Venous Total CO2 ROMAN ([facility]) venous standard HCO3 18.9 mEq/L Venous Standard HCO3 ROMAN ([facility]) venous O2 saturation 96.0 % 60.0-80.0 Above high normal Venous O 2 Saturation ROMAN ([facility]) ID Date Data Source [id number] 02/17/2020 01:25:00 PM EST ROMAN ([facility]) Name Value Range Interpretation Code Description Data Kaye rce(s) Supporting Document(s) venous partial pressure O2 83.8 mmHg 30.0-50.0 Above high nor mal Venous Partial Pressure O2 ROMAN ([facility]) venous partial pressure CO2 30.6 mmHg 38.0-50.0 Below low nor mal Venous Partial Pressure CO2 ROMAN ([facility]) venous pH 7.371 units 7.330-7.430 Venous pH ROMAN ([facility]) venous total CO2 18.3 mEq/L 24.0-28.0 Below low normal Venous Total CO2 ROMAN ([facility]) venous HCO3 17.3 mEq/L 23.0-27.0 Below low normal Venous HCO3 ROMAN ([facility]) venous standard HCO3 18.9 mEq/L Venous Standard HCO3 ROMAN ([facility]) venous base excess -2.0-2.0 Below low normal Venous Base Excess ROMAN ([facility]) venous O2 saturation 96.0 % 60.0-80.0 Above high normal Venous O 2 Saturation ROMAN ([facility]) ID Date Data Source [id number] 02/17/2020 01:25:00 PM EST ROMNA ([facility]) Name Value Range Interpretation Code Description Data Kaye rce(s) Supporting Document(s) white blood count 9.6 10 4.0-10.0 White Blood Count ROMAN ([facility]) hematocrit 33.8 % 36.0-47.0 Below low normal Hematocrit ROMAN ( [facility]) hemoglobin 11.0 g/dL 12.0-15.5 Below low normal Hemoglobin ROMAN ( [facility]) red blood count 3.98 10 4.00-5.40 Below low normal Red Blood Coun t ROMAN ([facility]) mean corpuscular hemoglobin 27.6 pg 27.0-33.0 Mean Cor puscular Hemoglobin ROMAN ([facility]) mean corpuscular volume 84.9 fL 80.0-96.0 Mean Corpusc ular Volume HEXT ([facility]) platelet count, automated 333 10 150-450 Platelet C ount, Automated ROMAN ([facility]) red cell distribution width 15.0 % 11.5-14.5 Above high no rmal Red Cell Distribution Width HEXT ([facility]) mean corpuscular HGB conc 32.5 g/dL 32.0-36.5 Mean Corpu scular HGB Conc HEXT ([facility]) lymph % 14.8 % 24.0-44.0 Below low normal Lymph % HEXT ( [facility]) neutrophils % 78.2 % 36.0-66.0 Above high normal Neutrophils % A THENA ([facility]) mono % 6.1 % 0.0-5.0 Above high normal Wake % HEXT ([facility]) eos % 0.1 % 0.0-3.0 Eos % ROMAN ([facility]) baso % 0.5 % 0.0-1.0 Baso % ROMAN ([facility]) nucleated red blood cell % 0.0 % 0-0 Nucleated Red Blood Cell % ROMAN ([facility]) immature granulocyte % 0.3 % 0-3.0 Immature Gran ulocyte % HEXT ([facility]) neutrophils # 7.5 10 1.5-8.5 Neutrophils # HEXT ( [facility]) lymph # 1.4 10 1.5-5.0 Below low normal Lymph # HEXT ( [facility]) baso # 0.1 10 0.0-0.2 Baso # ROMAN ([facility]) mono # 0.6 10 0.0-0.8 Wake # ROMAN ([facility]) eos # 0.0 10 0.0-0.5 Eos # ROMAN ([facility]) ID Date Data Source [id number] 02/17/2020 01:25:00 PM EST ROMAN ([facility]) Name Value Range Interpretation Code Description Data Kaye rce(s) Supporting Document(s) estimated average glucose 197 mg/dL 60-110 Above high norm al Estimated Average Glucose HEXT ([facility]) Hemoglobin A1c/Hemoglobin.total in Blood 8.5 % Hemoglobin a1C HEXT ([facility]) ID Date Data Source [id number] 02/17/2020 01:25:00 PM EST ROMAN ([facility]) Name Value Range Interpretation Code Description Data Kaye rce(s) Supporting Document(s) venous pH 7.371 units 7.330-7.430 Venous pH ROMAN ([facility]) venous partial pressure CO2 30.6 mmHg 38.0-50.0 Below low nor mal Venous Partial Pressure CO2 HEXT ([facility]) venous partial pressure O2 83.8 mmHg 30.0-50.0 Above high nor mal Venous Partial Pressure O2 ROMAN ([facility]) venous HCO3 17.3 mEq/L 23.0-27.0 Below low normal Venous HCO3 HEXT ([facility]) venous total CO2 18.3 mEq/L 24.0-28.0 Below low normal Venous Total CO2 ROMAN ([facility]) venous base excess -2.0-2.0 Below low normal Venous Base Excess ROMAN ([facility]) venous standard HCO3 18.9 mEq/L Venous Standard HCO3 ROMAN ([facility]) venous O2 saturation 96.0 % 60.0-80.0 Above high normal Venous O 2 Saturation [facility]) ID Date Data Source [id number] 02/17/2020 01:25:00 PM EST ROMAN ([facility]) Name Value Range Interpretation Code Description Data Kaye rce(s) Supporting Document(s) venous partial pressure CO2 30.6 mmHg 38.0-50.0 Below low nor mal Venous Partial Pressure CO2 ROMAN ([facility]) venous pH 7.371 units 7.330-7.430 Venous pH ROMAN ([facility]) venous partial pressure O2 83.8 mmHg 30.0-50.0 Above high nor mal Venous Partial Pressure O2 ROMAN ([facility]) venous total CO2 18.3 mEq/L 24.0-28.0 Below low normal Venous Total CO2 ROMAN ([facility]) venous base excess -2.0-2.0 Below low normal Venous Base Excess HEXT ([facility]) venous HCO3 17.3 mEq/L 23.0-27.0 Below low normal Venous HCO3 HEXT ([facility]) venous standard HCO3 18.9 mEq/L Venous Standard HCO3 ROMAN ([facility]) venous O2 saturation 96.0 % 60.0-80.0 Above high normal Venous O 2 Saturation HEXT ([facility]) ID Date Data Source [id number] 02/17/2020 01:25:00 PM EST ROMAN ([facility]) Name Value Range Interpretation Code Description Data Kaye rce(s) Supporting Document(s) white blood count 9.6 10 4.0-10.0 White Blood Count ROMAN ([facility]) red blood count 3.98 10 4.00-5.40 Below low normal Red Blood Coun t ROMAN ([facility]) hemoglobin 11.0 g/dL 12.0-15.5 Below low normal Hemoglobin ROMAN ( [facility]) hematocrit 33.8 % 36.0-47.0 Below low normal Hematocrit ROMAN ( [facility]) mean corpuscular volume 84.9 fL 80.0-96.0 Mean Corpusc ular Volume ROMAN ([facility]) mean corpuscular hemoglobin 27.6 pg 27.0-33.0 Mean Cor puscular Hemoglobin ROMAN ([facility]) red cell distribution width 15.0 % 11.5-14.5 Above high no rmal Red Cell Distribution Width ROMAN ([facility]) mean corpuscular HGB conc 32.5 g/dL 32.0-36.5 Mean Corpu scular HGB Conc ROMAN ([facility]) platelet count, automated 333 10 150-450 Platelet C ount, Automated ROMAN ([facility]) neutrophils % 78.2 % 36.0-66.0 Above high normal Neutrophils % A THENA ([facility]) mono % 6.1 % 0.0-5.0 Above high normal [place] % HEXT ([facility]) lymph % 14.8 % 24.0-44.0 Below low normal Lymph % HEXT ( [facility]) eos % 0.1 % 0.0-3.0 Eos % ROMAN ([facility]) baso % 0.5 % 0.0-1.0 Baso % ROMAN ([facility]) immature granulocyte % 0.3 % 0-3.0 Immature Gran ulocyte % ROMAN ([facility]) neutrophils # 7.5 10 1.5-8.5 Neutrophils # ROMAN ( [facility]) nucleated red blood cell % 0.0 % 0-0 Nucleated Red Blood Cell % ROMAN ([facility]) lymph # 1.4 10 1.5-5.0 Below low normal Lymph # ROMAN ( [facility]) mono # 0.6 10 0.0-0.8 Wake # ROMAN ([facility]) baso # 0.1 10 0.0-0.2 Baso # ROMAN ([facility]) eos # 0.0 10 0.0-0.5 Eos # ROMAN ([facility]) ID Date Data Source [id number] 02/17/2020 01:25:00 PM EST HEXT ([facility]) Name Value Range Interpretation Code Description Data Kaye rce(s) Supporting Document(s) venous pH 7.371 units 7.330-7.430 Venous pH ROMAN ([facility]) venous partial pressure CO2 30.6 mmHg 38.0-50.0 Below low nor mal Venous Partial Pressure CO2 ROMAN ([facility]) venous total CO2 18.3 mEq/L 24.0-28.0 Below low normal Venous Total CO2 ROMAN ([facility]) venous partial pressure O2 83.8 mmHg 30.0-50.0 Above high nor mal Venous Partial Pressure O2 ROMAN ([facility]) venous HCO3 17.3 mEq/L 23.0-27.0 Below low normal Venous HCO3 ROMAN ([facility]) venous standard HCO3 18.9 mEq/L Venous Standard HCO3 ROMAN ([facility]) venous base excess -2.0-2.0 Below low normal Venous Base Excess ROMAN ([facility]) venous O2 saturation 96.0 % 60.0-80.0 Above high normal Venous O 2 Saturation HEXT ([facility]) ID Date Data Source [id number] 02/17/2020 01:25:00 PM EST ROMAN ([facility]) Name Value Range Interpretation Code Description Data Kaye rce(s) Supporting Document(s) venous partial pressure CO2 30.6 mmHg 38.0-50.0 Below low nor mal Venous Partial Pressure CO2 ROMAN ([facility]) venous pH 7.371 units 7.330-7.430 Venous pH ROMAN ([facility]) venous total CO2 18.3 mEq/L 24.0-28.0 Below low normal Venous Total CO2 ROMAN ([facility]) venous partial pressure O2 83.8 mmHg 30.0-50.0 Above high nor mal Venous Partial Pressure O2 ROMAN ([facility]) venous HCO3 17.3 mEq/L 23.0-27.0 Below low normal Venous HCO3 ROMAN ([facility]) venous standard HCO3 18.9 mEq/L Venous Standard HCO3 ROMAN ([facility]) venous base excess -2.0-2.0 Below low normal Venous Base Excess ROMAN ([facility]) venous O2 saturation 96.0 % 60.0-80.0 Above high normal Venous O 2 Saturation ROMAN ([facility]) ID Date Data Source [id number] 02/17/2020 01:25:00 PM EST ROMAN ([facility]) Name Value Range Interpretation Code Description Data Kaye rce(s) Supporting Document(s) white blood count 9.6 10 4.0-10.0 White Blood Count ROMAN ([facility]) hemoglobin 11.0 g/dL 12.0-15.5 Below low normal Hemoglobin ROMAN ( [facility]) red blood count 3.98 10 4.00-5.40 Below low normal Red Blood Coun t HEXT ([facility]) hematocrit 33.8 % 36.0-47.0 Below low normal Hematocrit HEXT ( [facility]) mean corpuscular hemoglobin 27.6 pg 27.0-33.0 Mean Cor puscular Hemoglobin ROMAN ([facility]) mean corpuscular volume 84.9 fL 80.0-96.0 Mean Corpusc ular Volume [facility]EXT ([facility]) mean corpuscular HGB conc 32.5 g/dL 32.0-36.5 Mean Corpu scular HGB Conc HEXT ([facility]) red cell distribution width 15.0 % 11.5-14.5 Above high no rmal Red Cell Distribution Width ROMAN ([facility]) neutrophils % 78.2 % 36.0-66.0 Above high normal Neutrophils % A THENA ([facility]) platelet count, automated 333 10 150-450 Platelet C ount, Automated ROMAN ([facility]) lymph % 14.8 % 24.0-44.0 Below low normal Lymph % HEXT ( [facility]) mono % 6.1 % 0.0-5.0 Above high normal [place] % ROMAN ([facility]) eos % 0.1 % 0.0-3.0 Eos % ROMAN ([facility]) baso % 0.5 % 0.0-1.0 Baso % ROMAN ([facility]) immature granulocyte % 0.3 % 0-3.0 Immature Gran ulocyte % ROMAN ([facility]) nucleated red blood cell % 0.0 % 0-0 Nucleated Red Blood Cell % ROMAN ([facility]) neutrophils # 7.5 10 1.5-8.5 Neutrophils # ROMAN ( [facility]) mono # 0.6 10 0.0-0.8 [place] # [facility] [facility]) lymph # 1.4 10 1.5-5.0 Below low normal Lymph # ROMAN ( [facility]) eos # 0.0 10 0.0-0.5 Eos # ROMAN ([facility]) baso # 0.1 10 0.0-0.2 Baso # ROMAN ([facility]) ID Date Data Source [id number] 02/17/2020 01:25:00 PM EST ROMAN ([facility]) Name Value Range Interpretation Code Description Data Kaye rce(s) Supporting Document(s) Hemoglobin A1c/Hemoglobin.total in Blood 8.5 % Hemoglobin a1C ROMAN ([facility]) estimated average glucose 197 mg/dL 60-110 Above high norm al Estimated Average Glucose HEXT ([facility]) ID Date Data Source [id number] 02/17/2020 01:25:00 PM EST ROMAN ([facility]) Name Value Range Interpretation Code Description Data Kaye rce(s) Supporting Document(s) venous pH 7.371 units 7.330-7.430 Venous pH ROMAN ([facility]) venous partial pressure CO2 30.6 mmHg 38.0-50.0 Below low nor mal Venous Partial Pressure CO2 ROMAN ([facility]) venous total CO2 18.3 mEq/L 24.0-28.0 Below low normal Venous Total CO2 ROMAN ([facility]) venous partial pressure O2 83.8 mmHg 30.0-50.0 Above high nor mal Venous Partial Pressure O2 ROMAN ([facility]) venous HCO3 17.3 mEq/L 23.0-27.0 Below low normal Venous HCO3 HEXT ([facility]) venous standard HCO3 18.9 mEq/L Venous Standard HCO3 ROMAN ([facility]) venous base excess -2.0-2.0 Below low normal Venous Base Excess ROMAN ([facility]) venous O2 saturation 96.0 % 60.0-80.0 Above high normal Venous O 2 Saturation ROMAN ([facility]) ID Date Data Source [id number] 02/17/2020 01:25:00 PM EST ROMAN ([facility]) Name Value Range Interpretation Code Description Data Kaye rce(s) Supporting Document(s) venous partial pressure CO2 30.6 mmHg 38.0-50.0 Below low nor mal Venous Partial Pressure CO2 ROMAN ([facility]) venous pH 7.371 units 7.330-7.430 Venous pH ROMAN ([facility]) venous total CO2 18.3 mEq/L 24.0-28.0 Below low normal Venous Total CO2 ROMAN ([facility]) venous partial pressure O2 83.8 mmHg 30.0-50.0 Above high nor mal Venous Partial Pressure O2 ROMAN ([facility]) venous HCO3 17.3 mEq/L 23.0-27.0 Below low normal Venous HCO3 ROMAN ([facility]) venous standard HCO3 18.9 mEq/L Venous Standard HCO3 ROMAN ([facility]) venous O2 saturation 96.0 % 60.0-80.0 Above high normal Venous O 2 Saturation ROMAN ([facility]) venous base excess -2.0-2.0 Below low normal Venous Base Excess ROMAN ([facility]) ID Date Data Source [id number] 02/17/2020 01:25:00 PM EST ROMAN ([facility]) Name Value Range Interpretation Code Description Data Kaye rce(s) Supporting Document(s) red blood count 3.98 10 4.00-5.40 Below low normal Red Blood Coun t ROMAN ([facility]) white blood count 9.6 10 4.0-10.0 White Blood Count HEXT ([facility]) hematocrit 33.8 % 36.0-47.0 Below low normal Hematocrit ROMAN ( [facility]) hemoglobin 11.0 g/dL 12.0-15.5 Below low normal Hemoglobin ROMAN ( [facility]) mean corpuscular volume 84.9 fL 80.0-96.0 Mean Corpusc ular Volume ROMAN ([facility]) mean corpuscular hemoglobin 27.6 pg 27.0-33.0 Mean Cor puscular Hemoglobin ROMAN ([facility]) mean corpuscular HGB conc 32.5 g/dL 32.0-36.5 Mean Corpu scular HGB Conc ROMAN ([facility]) red cell distribution width 15.0 % 11.5-14.5 Above high no rmal Red Cell Distribution Width ROMAN ([facility]) neutrophils % 78.2 % 36.0-66.0 Above high normal Neutrophils % A THENA ([facility]) platelet count, automated 333 10 150-450 Platelet C ount, Automated ROMAN ([facility]) lymph % 14.8 % 24.0-44.0 Below low normal Lymph % ROMAN ( [facility]) eos % 0.1 % 0.0-3.0 Eos % ROMAN ([facility]) mono % 6.1 % 0.0-5.0 Above high normal [place] % ROMAN ([facility]) immature granulocyte % 0.3 % 0-3.0 Immature Gran ulocyte % ROMAN ([facility]) baso % 0.5 % 0.0-1.0 Baso % ROMAN ([facility]) neutrophils # 7.5 10 1.5-8.5 Neutrophils # ROMAN ( [facility]) lymph # 1.4 10 1.5-5.0 Below low normal Lymph # ROMAN ( [facility]) nucleated red blood cell % 0.0 % 0-0 Nucleated Red Blood Cell % ROMAN ([facility]) mono # 0.6 10 0.0-0.8 [place] # ROMAN ([facility]) eos # 0.0 10 0.0-0.5 Eos # ROMAN ([facility]) baso # 0.1 10 0.0-0.2 Baso # ROMAN ([facility]) ID Date Data Source [id number] 02/17/2020 01:25:00 PM EST ROMAN ([facility]) Name Value Range Interpretation Code Description Data Kaye rce(s) Supporting Document(s) estimated average glucose 197 mg/dL 60-110 Above high norm al Estimated Average Glucose HEXT ([facility]) Hemoglobin A1c/Hemoglobin.total in Blood 8.5 % Hemoglobin a1C HEXT ([facility]) ID Date Data Source [id number] 02/17/2020 01:25:00 PM EST ROMAN ([facility]) Name Value Range Interpretation Code Description Data Kaye rce(s) Supporting Document(s) Hemoglobin A1c/Hemoglobin.total in Blood 8.5 % Hemoglobin a1C HEXT ([facility]) estimated average glucose 197 mg/dL 60-110 Above high norm al Estimated Average Glucose HEXT ([facility]) ID Date Data Source [id number] 02/17/2020 01:25:00 PM EST ROMAN ([facility]) Name Value Range Interpretation Code Description Data Kaye rce(s) Supporting Document(s) venous partial pressure CO2 30.6 mmHg 38.0-50.0 Below low nor mal Venous Partial Pressure CO2 HEXT ([facility]) venous pH 7.371 units 7.330-7.430 Venous pH ROMAN ([facility]) venous HCO3 17.3 mEq/L 23.0-27.0 Below low normal Venous HCO3 ROMAN ([facility]) venous partial pressure O2 83.8 mmHg 30.0-50.0 Above high nor mal Venous Partial Pressure O2 ROMAN ([facility]) venous total CO2 18.3 mEq/L 24.0-28.0 Below low normal Venous Total CO2 HEXT ([facility]) venous base excess -2.0-2.0 Below low normal Venous Base Excess HEXT ([facility]) venous standard HCO3 18.9 mEq/L Venous Standard HCO3 HEXT ([facility]) venous O2 saturation 96.0 % 60.0-80.0 Above high normal Venous O 2 Saturation ROMAN ([facility]) ID Date Data Source [id number] 02/17/2020 01:25:00 PM EST ROMAN ([facility]) Name Value Range Interpretation Code Description Data Kaye rce(s) Supporting Document(s) venous pH 7.371 units 7.330-7.430 Venous pH ROMAN ([facility]) venous partial pressure O2 83.8 mmHg 30.0-50.0 Above high nor mal Venous Partial Pressure O2 ROMAN ([facility]) venous partial pressure CO2 30.6 mmHg 38.0-50.0 Below low nor mal Venous Partial Pressure CO2 ROMAN ([facility]) venous base excess -2.0-2.0 Below low normal Venous Base Excess ROMAN ([facility]) venous total CO2 18.3 mEq/L 24.0-28.0 Below low normal Venous Total CO2 ROMAN ([facility]) venous HCO3 17.3 mEq/L 23.0-27.0 Below low normal Venous HCO3 ROMAN ([facility]) venous standard HCO3 18.9 mEq/L Venous Standard HCO3 ROMAN ([facility]) venous O2 saturation 96.0 % 60.0-80.0 Above high normal Venous O 2 Saturation ROMAN ([facility]) ID Date Data Source [id number] 02/17/2020 01:25:00 PM EST ROMAN ([facility]) Name Value Range Interpretation Code Description Data Kaye rce(s) Supporting Document(s) white blood count 9.6 10 4.0-10.0 White Blood Count ROMAN ([facility]) red blood count 3.98 10 4.00-5.40 Below low normal Red Blood Coun t ROMAN ([facility]) hemoglobin 11.0 g/dL 12.0-15.5 Below low normal Hemoglobin ROMAN ( [facility]) hematocrit 33.8 % 36.0-47.0 Below low normal Hematocrit ROMAN ( [facility]) mean corpuscular volume 84.9 fL 80.0-96.0 Mean Corpusc ular Volume ROMAN ([facility]) mean corpuscular hemoglobin 27.6 pg 27.0-33.0 Mean Cor puscular Hemoglobin ROMAN ([facility]) mean corpuscular HGB conc 32.5 g/dL 32.0-36.5 Mean Corpu scular HGB Conc ROMAN ([facility]) red cell distribution width 15.0 % 11.5-14.5 Above high no rmal Red Cell Distribution Width ROMAN ([facility]) platelet count, automated 333 10 150-450 Platelet C ount, Automated ROMAN ([facility]) neutrophils % 78.2 % 36.0-66.0 Above high normal Neutrophils % A THENA ([facility]) lymph % 14.8 % 24.0-44.0 Below low normal Lymph % HEXT ( [facility]) mono % 6.1 % 0.0-5.0 Above high normal [place] % ROMAN ([facility]) eos % 0.1 % 0.0-3.0 Eos % ROMAN ([facility]) baso % 0.5 % 0.0-1.0 Baso % ROMAN ([facility]) immature granulocyte % 0.3 % 0-3.0 Immature Gran ulocyte % ROMAN ([facility]) nucleated red blood cell % 0.0 % 0-0 Nucleated Red Blood Cell % ROMAN ([facility]) neutrophils # 7.5 10 1.5-8.5 Neutrophils # ROMAN ( [facility]) lymph # 1.4 10 1.5-5.0 Below low normal Lymph # ROMAN ( [facility]) mono # 0.6 10 0.0-0.8 [place] # ROMAN ([facility]) eos # 0.0 10 0.0-0.5 Eos # ROMAN ([facility]) baso # 0.1 10 0.0-0.2 Baso # ROMAN ([facility]) ID Date Data Source [id number] 02/17/2020 01:25:00 PM EST ROMAN ([facility]) Name Value Range Interpretation Code Description Data Kaye rce(s) Supporting Document(s) estimated average glucose 197 mg/dL 60-110 Above high norm al Estimated Average Glucose ROMAN ([facility]) Hemoglobin A1c/Hemoglobin.total in Blood 8.5 % Hemoglobin a1C ROMAN ([facility]) ID Date Data Source [id number] 02/17/2020 01:25:00 PM EST ROMAN ([facility]) Name Value Range Interpretation Code Description Data Kaye rce(s) Supporting Document(s) venous partial pressure CO2 30.6 mmHg 38.0-50.0 Below low nor mal Venous Partial Pressure CO2 ROMAN ([facility]) venous pH 7.371 units 7.330-7.430 Venous pH ROMAN ([facility]) venous partial pressure O2 83.8 mmHg 30.0-50.0 Above high nor mal Venous Partial Pressure O2 ROMAN ([facility]) venous total CO2 18.3 mEq/L 24.0-28.0 Below low normal Venous Total CO2 ROMAN ([facility]) venous HCO3 17.3 mEq/L 23.0-27.0 Below low normal Venous HCO3 ROMAN ([facility]) venous base excess -2.0-2.0 Below low normal Venous Base Excess ROMAN ([facility]) venous standard HCO3 18.9 mEq/L Venous Standard HCO3 ROMAN ([facility]) venous O2 saturation 96.0 % 60.0-80.0 Above high normal Venous O 2 Saturation ROMAN ([facility]) ID Date Data Source [id number] 02/17/2020 01:25:00 PM EST ROMAN ([facility]) Name Value Range Interpretation Code Description Data Kaye rce(s) Supporting Document(s) venous partial pressure CO2 30.6 mmHg 38.0-50.0 Below low nor mal Venous Partial Pressure CO2 ROMAN ([facility]) venous pH 7.371 units 7.330-7.430 Venous pH ROMAN ([facility]) venous partial pressure O2 83.8 mmHg 30.0-50.0 Above high nor mal Venous Partial Pressure O2 ROMAN ([facility]) venous total CO2 18.3 mEq/L 24.0-28.0 Below low normal Venous Total CO2 ROMAN ([facility]) venous HCO3 17.3 mEq/L 23.0-27.0 Below low normal Venous HCO3 ROMAN ([facility]) venous standard HCO3 18.9 mEq/L Venous Standard HCO3 ROMAN ([facility]) venous base excess -2.0-2.0 Below low normal Venous Base Excess ROMAN ([facility]) venous O2 saturation 96.0 % 60.0-80.0 Above high normal Venous O 2 Saturation HEXT ([facility]) ID Date Data Source [id number] 02/17/2020 01:25:00 PM EST HEXT ([facility]) Name Value Range Interpretation Code Description Data Kaye rce(s) Supporting Document(s) white blood count 9.6 10 4.0-10.0 White Blood Count ROMAN ([facility]) red blood count 3.98 10 4.00-5.40 Below low normal Red Blood Coun t HEXT ([facility]) hemoglobin 11.0 g/dL 12.0-15.5 Below low normal Hemoglobin HEXT ( [facility]) mean corpuscular volume 84.9 fL 80.0-96.0 Mean Corpusc ular Volume ROMAN ([facility]) hematocrit 33.8 % 36.0-47.0 Below low normal Hematocrit HEXT ( [facility]) mean corpuscular hemoglobin 27.6 pg 27.0-33.0 Mean Cor puscular Hemoglobin ROMAN ([facility]) red cell distribution width 15.0 % 11.5-14.5 Above high no rmal Red Cell Distribution Width ROMAN ([facility]) mean corpuscular HGB conc 32.5 g/dL 32.0-36.5 Mean Corpu scular HGB Conc ROMAN ([facility]) neutrophils % 78.2 % 36.0-66.0 Above high normal Neutrophils % A THENA ([facility]) lymph % 14.8 % 24.0-44.0 Below low normal Lymph % ROMAN ( [facility]) platelet count, automated 333 10 150-450 Platelet C ount, Automated ROMAN ([facility]) baso % 0.5 % 0.0-1.0 Baso % ROMAN ([facility]) mono % 6.1 % 0.0-5.0 Above high normal [place] % ROMAN ([facility]) eos % 0.1 % 0.0-3.0 Eos % ROMAN ([facility]) immature granulocyte % 0.3 % 0-3.0 Immature Gran ulocyte % ROMAN ([facility]) nucleated red blood cell % 0.0 % 0-0 Nucleated Red Blood Cell % HEXT ([facility]) lymph # 1.4 10 1.5-5.0 Below low normal Lymph # ROMAN ( [facility]) mono # 0.6 10 0.0-0.8 [place] # ROMAN ([facility]) neutrophils # 7.5 10 1.5-8.5 Neutrophils # ROMAN ( [facility]) eos # 0.0 10 0.0-0.5 Eos # ROMAN ([facility]) baso # 0.1 10 0.0-0.2 Baso # ROMAN ([facility]) ID Date Data Source [id number] 02/17/2020 01:25:00 PM EST ROMAN ([facility]) Name Value Range Interpretation Code Description Data Kaye rce(s) Supporting Document(s) Hemoglobin A1c/Hemoglobin.total in Blood 8.5 % Hemoglobin a1C ROMAN ([facility]) estimated average glucose 197 mg/dL 60-110 Above high norm al Estimated Average Glucose ROMAN ([facility]) ID Date Data Source [id number] 02/17/2020 01:25:00 PM EST ROMAN ([facility]) Name Value Range Interpretation Code Description Data Kaye rce(s) Supporting Document(s) venous pH 7.371 units 7.330-7.430 Venous pH ROMAN ([facility]) venous partial pressure CO2 30.6 mmHg 38.0-50.0 Below low nor mal Venous Partial Pressure CO2 ROMAN ([facility]) venous partial pressure O2 83.8 mmHg 30.0-50.0 Above high nor mal Venous Partial Pressure O2 ROMAN ([facility]) venous base excess -2.0-2.0 Below low normal Venous Base Excess ROMAN ([facility]) venous total CO2 18.3 mEq/L 24.0-28.0 Below low normal Venous Total CO2 ROMAN ([facility]) venous HCO3 17.3 mEq/L 23.0-27.0 Below low normal Venous HCO3 HEXT ([facility]) venous O2 saturation 96.0 % 60.0-80.0 Above high normal Venous O 2 Saturation HEXT ([facility]) venous standard HCO3 18.9 mEq/L Venous Standard HCO3 HEXT ([facility]) ID Date Data Source [id number] 02/17/2020 01:25:00 PM EST HEXT ([facility]) Name Value Range Interpretation Code Description Data Kaye rce(s) Supporting Document(s) red blood count 3.98 10 4.00-5.40 Below low normal Red Blood Coun t ROMAN ([facility]) hemoglobin 11.0 g/dL 12.0-15.5 Below low normal Hemoglobin ROMAN ( [facility]) white blood count 9.6 10 4.0-10.0 White Blood Count ROMAN ([facility]) mean corpuscular volume 84.9 fL 80.0-96.0 Mean Corpusc ular Volume ROMAN ([facility]) hematocrit 33.8 % 36.0-47.0 Below low normal Hematocrit HEXT ( [facility]) red cell distribution width 15.0 % 11.5-14.5 Above high no rmal Red Cell Distribution Width ROMAN ([facility]) mean corpuscular hemoglobin 27.6 pg 27.0-33.0 Mean Cor puscular Hemoglobin ROMAN ([facility]) mean corpuscular HGB conc 32.5 g/dL 32.0-36.5 Mean Corpu scular HGB Conc ROMAN ([facility]) neutrophils % 78.2 % 36.0-66.0 Above high normal Neutrophils % A THENA ([facility]) lymph % 14.8 % 24.0-44.0 Below low normal Lymph % ROMAN ( [facility]) platelet count, automated 333 10 150-450 Platelet C ount, Automated ROMAN ([facility]) eos % 0.1 % 0.0-3.0 Eos % ROMAN ([facility]) baso % 0.5 % 0.0-1.0 Baso % ROMAN ([facility]) mono % 6.1 % 0.0-5.0 Above high normal [place] % ROMAN ([facility]) immature granulocyte % 0.3 % 0-3.0 Immature Gran ulocyte % ROMAN ([facility]) neutrophils # 7.5 10 1.5-8.5 Neutrophils # HEXT ( [facility]) nucleated red blood cell % 0.0 % 0-0 Nucleated Red Blood Cell % ROMAN ([facility]) eos # 0.0 10 0.0-0.5 Eos # ROMAN ([facility]) mono # 0.6 10 0.0-0.8 [place] # ROMAN ([facility]) lymph # 1.4 10 1.5-5.0 Below low normal Lymph # ROMAN ( [facility]) baso # 0.1 10 0.0-0.2 Baso # ROMAN ([facility]) ID Date Data Source [id number] 02/17/2020 01:25:00 PM EST ROMAN ([facility]) Name Value Range Interpretation Code Description Data Kaye rce(s) Supporting Document(s) venous pH 7.371 units 7.330-7.430 Venous pH ROMAN ([facility]) venous partial pressure CO2 30.6 mmHg 38.0-50.0 Below low nor mal Venous Partial Pressure CO2 ROMAN ([facility]) venous partial pressure O2 83.8 mmHg 30.0-50.0 Above high nor mal Venous Partial Pressure O2 ROMAN ([facility]) venous total CO2 18.3 mEq/L 24.0-28.0 Below low normal Venous Total CO2 ROMAN ([facility]) venous base excess -2.0-2.0 Below low normal Venous Base Excess ROMAN ([facility]) venous standard HCO3 18.9 mEq/L Venous Standard HCO3 ROMAN ([facility]) venous HCO3 17.3 mEq/L 23.0-27.0 Below low normal Venous HCO3 ROMAN ([facility]) venous O2 saturation 96.0 % 60.0-80.0 Above high normal Venous O 2 Saturation HEXT ([facility]) ID Date Data Source [id number] 02/17/2020 01:22:00 PM EST HEXT ([facility]) Name Value Range Interpretation Code Description Data Kaye rce(s) Supporting Document(s) istat HCT 37.0 % 38.0-51.0 Below low normal Istat HCT ROMAN ( [facility]) istat glucose 359 mg/dL 70-105 Above high normal Istat Glucose A THENA ([facility]) istat sodium 127 mEq/L 136-145 Below low normal Istat Sodium ATHE NA ([facility]) istat Ca++ 3.8 mg/dL 4.5-5.3 Below low normal Istat Ca++ ROMAN ( [facility]) istat potassium 7.8 mEq/L 3.5-5.1 Above high normal Istat Potassi um ROMAN ([facility]) istat chloride 96 mEq/L 98-109 Below low normal Istat Chloride ROMAN ([facility]) istat BUN 70 mg/dL 8-26 Above high normal Istat BUN ROMAN ([facility]) istat CO2 21.0 mm/L 23.0-27.0 Below low normal Istat CO2 HEXT ( [facility]) istat creatinine 1.6 mg/dL 0.6-1.3 Above high normal Istat Creati nine ROMAN ([facility]) ID Date Data Source [id number] 02/17/2020 01:22:00 PM EST ROMAN ([facility]) Name Value Range Interpretation Code Description Data Kaye rce(s) Supporting Document(s) istat HCT 37.0 % 38.0-51.0 Below low normal Istat HCT ROMAN ( [facility]) istat glucose 359 mg/dL 70-105 Above high normal Istat Glucose A THENA ([facility]) istat potassium 7.8 mEq/L 3.5-5.1 Above high normal Istat Potassi um ROMAN ([facility]) istat sodium 127 mEq/L 136-145 Below low normal Istat Sodium ATHE NA ([facility]) istat chloride 96 mEq/L 98-109 Below low normal Istat Chloride ROMAN ([facility]) istat Ca++ 3.8 mg/dL 4.5-5.3 Below low normal Istat Ca++ ROMAN ( [facility]) istat CO2 21.0 mm/L 23.0-27.0 Below low normal Istat CO2 ROMAN ( [facility]) istat BUN 70 mg/dL 8-26 Above high normal Istat BUN ROMAN ([facility]) istat creatinine 1.6 mg/dL 0.6-1.3 Above high normal Istat Creati nine HEXT ([facility]) ID Date Data Source [id number] 02/17/2020 01:22:00 PM EST ROMAN ([facility]) Name Value Range Interpretation Code Description Data Kaye rce(s) Supporting Document(s) istat HCT 37.0 % 38.0-51.0 Below low normal Istat HCT ROMAN ( [facility]) istat potassium 7.8 mEq/L 3.5-5.1 Above high normal Istat Potassi um ROMAN ([facility]) istat sodium 127 mEq/L 136-145 Below low normal Istat Sodium ATHE NA ([facility]) istat glucose 359 mg/dL 70-105 Above high normal Istat Glucose A THENA ([facility]) istat Ca++ 3.8 mg/dL 4.5-5.3 Below low normal Istat Ca++ ROMAN ( [facility]) istat chloride 96 mEq/L 98-109 Below low normal Istat Chloride ROMAN ([facility]) istat CO2 21.0 mm/L 23.0-27.0 Below low normal Istat CO2 ROMAN ( [facility]) istat creatinine 1.6 mg/dL 0.6-1.3 Above high normal Istat Creati nine ROMAN ([facility]) istat BUN 70 mg/dL 8-26 Above high normal Istat BUN HEXT ([facility]) ID Date Data Source [id number] 02/17/2020 01:22:00 PM EST ROMAN ([facility]) Name Value Range Interpretation Code Description Data Kaye rce(s) Supporting Document(s) istat HCT 37.0 % 38.0-51.0 Below low normal Istat HCT ROMAN ( [facility]) istat sodium 127 mEq/L 136-145 Below low normal Istat Sodium ATHE NA ([facility]) istat glucose 359 mg/dL 70-105 Above high normal Istat Glucose A THENA ([facility]) istat potassium 7.8 mEq/L 3.5-5.1 Above high normal Istat Potassi um ROMAN ([facility]) istat Ca++ 3.8 mg/dL 4.5-5.3 Below low normal Istat Ca++ ROMAN ( [facility]) istat CO2 21.0 mm/L 23.0-27.0 Below low normal Istat CO2 ROMAN ( [facility]) istat chloride 96 mEq/L 98-109 Below low normal Istat Chloride ROMAN ([facility]) istat BUN 70 mg/dL 8-26 Above high normal Istat BUN ROMAN ([facility]) istat creatinine 1.6 mg/dL 0.6-1.3 Above high normal Istat Creati nine ROMAN ([facility]) ID Date Data Source [id number] 02/17/2020 01:22:00 PM EST ROMAN ([facility]) Name Value Range Interpretation Code Description Data Kaye rce(s) Supporting Document(s) istat HCT 37.0 % 38.0-51.0 Below low normal Istat HCT ROMAN ( [facility]) istat glucose 359 mg/dL 70-105 Above high normal Istat Glucose A THENA ([facility]) istat sodium 127 mEq/L 136-145 Below low normal Istat Sodium ATHE NA ([facility]) istat potassium 7.8 mEq/L 3.5-5.1 Above high normal Istat Potassi um ROMAN ([facility]) istat Ca++ 3.8 mg/dL 4.5-5.3 Below low normal Istat Ca++ ROMAN ( [facility]) istat chloride 96 mEq/L 98-109 Below low normal Istat Chloride ROMAN ([facility]) istat BUN 70 mg/dL 8-26 Above high normal Istat BUN ROMAN ([facility]) istat CO2 21.0 mm/L 23.0-27.0 Below low normal Istat CO2 ROMAN ( [facility]) istat creatinine 1.6 mg/dL 0.6-1.3 Above high normal Istat Creati nine ROMAN ([facility]) ID Date Data Source [id number] 02/17/2020 01:22:00 PM EST ROMAN ([facility]) Name Value Range Interpretation Code Description Data Kaye rce(s) Supporting Document(s) istat HCT 37.0 % 38.0-51.0 Below low normal Istat HCT [facility] ( [facility]) istat glucose 359 mg/dL 70-105 Above high [facility] ist[facility] sodium 127 mEq/L 136-145 Below low normal Istat Sodium ATHE NA ([facility]) istat potassium 7.8 mEq/L 3.5-5.1 Above high normal Istat Potassi um [facility]AN ([facility]) istat Ca++ 3.8 mg/dL 4.5-5.3 Below low normal Istat Ca++ [facility] ( [facility]) istat chloride 96 mEq/L 98-109 Below low normal Istat Chloride [facility] ([facility]) istat BUN 70 mg/dL 8-26 Above high normal Istat BUN [facility] ([facility]) istat creatinine 1.6 mg/dL 0.6-1.3 Above high normal Istat Creati nine [facility] ([facility]) istat CO2 21.0 mm/L 23.0-27.0 Below low normal Istat CO2 [facility] ( [facility]) ID Date Data Source [id number] 02/17/2020 01:22:00 PM EST [facility] ([facility]) Name Value Range Interpretation Code Description Data Kaye rce(s) Supporting Document(s) istat HCT 37.0 % 38.0-51.0 Below low normal Istat HCT ROMAN ( [facility]) istat glucose 359 mg/dL 70-105 Above high normal Istat Glucose A THENA ([facility]) istat sodium 127 mEq/L 136-145 Below low normal Istat Sodium ATHE NA ([facility]) istat Ca++ 3.8 mg/dL 4.5-5.3 Below low normal Istat Ca++ [facility] ( [facility]) istat potassium 7.8 mEq/L 3.5-5.1 Above high normal Istat Potassi um [facility] ([facility]) istat CO2 21.0 mm/L 23.0-27.0 Below low normal Istat CO2 [facility] ( [facility]) istat chloride 96 mEq/L 98-109 Below low normal Istat Chloride [facility] ([facility]) istat creatinine 1.6 mg/dL 0.6-1.3 Above high normal Istat Creati nine [facility] ([facility]) istat BUN 70 mg/dL 8-26 Above high normal Istat BUN [facility] ([facility]) Procedure Social History No Information Vital Signs ID Date Data Source UNK Name Value Range Interpretation Code Description Data Source(s) Diastolic blood pressure 73 mm[Hg] 73 mm[Hg] [facility] ([facility]) Body height 67 [in_i] 67 [in_i] [facility] ([facility]) Body mass index (BMI) [Ratio] 24.6 kg/m2 24.6 k g/m2 [facility] ([facility]) Systolic blood pressure 107 mm[Hg] 107 mm[Hg] A [facility] ([facility]) Body weight 2518 [oz_av] 2518 [oz_av] [facility] ([facility]) Diastolic blood pressure 73 mm[Hg] 73 mm[Hg] [facility] ([facility]) Body height 67 [in_i] 67 [in_i] [facility] ([facility]) Body mass index (BMI) [Ratio] 23.5 kg/m2 23.5 k g/m2 [facility] ([facility]) Systolic blood pressure 106 mm[Hg] 106 mm[Hg] A [facility] ([facility]) Body weight 2400 [oz_av] 2400 [oz_av] [facility] ([facility]) Diastolic blood pressure 73 mm[Hg] 73 mm[Hg] [facility] ([facility]) Body height 67 [in_i] 67 [in_i] [facility] ([facility]) Body mass index (BMI) [Ratio] 23.5 kg/m2 23.5 k g/m2 [facility] ([facility]) Systolic blood pressure 106 mm[Hg] 106 mm[Hg] A [facility] ([facility]) Body weight 2400 [oz_av] 2400 [oz_av] [facility] ([facility]) Body mass index (BMI) [Ratio] 24.9 kg/m2 24.9 k g/m2 [facility] ([facility]) Diastolic blood pressure 85 mm[Hg] 85 mm[Hg] [facility] ([facility]) Body height 67 [in_i] 67 [in_i] [facility] ([facility]) Systolic blood pressure 123 mm[Hg] 123 mm[Hg] A THENA ([facility]) Body weight 2547.2 [oz_av] 2547.2 [oz_av] ATHEN A ([facility]) Diastolic blood pressure 85 mm[Hg] 85 mm[Hg] [facility] ([facility]) Body height 67 [in_i] 67 [in_i] [facility] ([facility]) Body mass index (BMI) [Ratio] 24.9 kg/m2 24.9 k g/m2 [facility] ([facility]) Systolic blood pressure 123 mm[Hg] 123 mm[Hg] A THENA ([facility]) Body weight 2547.2 [oz_av] 2547.2 [oz_av] ATHEN A ([facility]) Diastolic blood pressure 85 mm[Hg] 85 mm[Hg] [facility] ([facility]) Body height 67 [in_i] 67 [in_i] [facility] ([facility]) Body mass index (BMI) [Ratio] 24.9 kg/m2 24.9 k g/m2 [facility] ([facility]) Systolic blood pressure 123 mm[Hg] 123 mm[Hg] A THENA ([facility]) Body weight 2547.2 [oz_av] 2547.2 [oz_av] ATHEN A ([facility]) Body height 67 [in_i] 67 [in_i] [facility] ([facility]) Body mass index (BMI) [Ratio] 24.6 kg/m2 24.6 k g/m2 [facility] ([facility]) Body weight 2512 [oz_av] 2512 [oz_av] [facility] ([facility]) Body weight 2512 [oz_av] 2512 [oz_av] [facility] ([facility]) Body height 67 [in_i] 67 [in_i] [facility] ([facility]) Body mass index (BMI) [Ratio] 24.6 kg/m2 24.6 k g/m2 [facility] ([facility]) Body height 67 [in_i] 67 [in_i] [facility] ([facility]) Body mass index (BMI) [Ratio] 24.6 kg/m2 24.6 k g/m2 [facility] ([facility]) Body weight 2512 [oz_av] 2512 [oz_av] [facility] ([facility]) Body height 67 [in_i] 67 [in_i] [facility] ([facility]) Body mass index (BMI) [Ratio] 24.6 kg/m2 24.6 k g/m2 [facility] ([facility]) Body weight 2512 [oz_av] 2512 [oz_av] [facility] ([facility]) Diastolic blood pressure 85 mm[Hg] 85 mm[Hg] [facility] ([facility]) Body height 67 [in_i] 67 [in_i] [facility] ([facility]) Body mass index (BMI) [Ratio] 24.7 kg/m2 24.7 k g/m2 [facility] ([facility]) Systolic blood pressure 123 mm[Hg] 123 mm[Hg] A THENA ([facility]) Body weight 2518.4 [oz_av] 2518.4 [oz_av] ATHEN A ([facility]) Diastolic blood pressure 85 mm[Hg] 85 mm[Hg] [facility] ([facility]) Body height 67 [in_i] 67 [in_i] [facility] ([facility]) Body mass index (BMI) [Ratio] 24.7 kg/m2 24.7 k g/m2 [facility] ([facility]) Systolic blood pressure 123 mm[Hg] 123 mm[Hg] A THENA ([facility]) Body weight 2518.4 [oz_av] 2518.4 [oz_av] ATHEN A ([facility]) Diastolic blood pressure 85 mm[Hg] 85 mm[Hg] [facility] ([facility]) Body height 67 [in_i] 67 [in_i] [facility] ([facility]) Body mass index (BMI) [Ratio] 24.7 kg/m2 24.7 k g/m2 [facility] ([facility]) Systolic blood pressure 123 mm[Hg] 123 mm[facility]Hg] [facility] Body weight 2518.4 [oz_av] 2518.4 [oz_av] ATHEN A ([facility]) Diastolic blood pressure 85 mm[Hg] 85 mm[Hg] [facility] ([facility]) Body height 67 [in_i] 67 [in_i] [facility] ([facility]) Body mass index (BMI) [Ratio] 24.7 kg/m2 24.7 k g/m2 [facility] ([facility]) Systolic blood pressure 123 mm[Hg] 123 mm[Hg] A DANIL[facility] ([facility]) Body weight 2518.4 [oz_av] 2518.4 [oz_av] ATHEN A ([facility]) Diastolic blood pressure 85 mm[Hg] 85 mm[Hg] [facility] ([facility]) Body height 67 [in_i] 67 [in_i] [facility] ([facility]) Body mass index (BMI) [Ratio] 24.7 kg/m2 24.7 k g/m2 [facility] ([facility]) Systolic blood pressure 123 mm[Hg] 123 mm[Hg] A [facility] ([facility]) Body weight 2518.4 [oz_av] 2518.4 [oz_av] ATHEN A ([facility]) Diastolic blood pressure 74 mm[Hg] 74 mm[Hg] [facility] ([facility]) Body height 67 [in_i] 67 [in_i] [facility] ([facility]) Body mass index (BMI) [Ratio] 24.1 kg/m2 24.1 k g/m2 [facility] ([facility]) Systolic blood pressure 104 mm[Hg] 104 mm[facility]Hg] [facility] Body weight 2464 [oz_av] 2464 [oz_av] [facility] ([facility]) Diastolic blood pressure 74 mm[Hg] 74 mm[Hg] [facility] ([facility]) Body height 67 [in_i] 67 [in_i] [facility] ([facility]) Body mass index (BMI) [Ratio] 24.1 kg/m2 24.1 k g/m2 [facility] ([facility]) Systolic blood pressure 104 mm[Hg] 104 mm[Hg] A THENA ([facility]) Body weight 2464 [oz_av] 2464 [oz_av] [facility] ([facility]) Diastolic blood pressure 74 mm[Hg] 74 mm[Hg] [facility] ([facility]) Body height 67 [in_i] 67 [in_i] [facility] ([facility]) Body mass index (BMI) [Ratio] 24.1 kg/m2 24.1 k g/m2 [facility] ([facility]) Systolic blood pressure 104 mm[Hg] 104 mm[Hg] [facility] Body weight 2464 [oz_av] 2464 [oz_av] [facility] ([facility]) Diastolic blood pressure 74 mm[Hg] 74 mm[Hg] [facility] ([facility]) Body height 67 [in_i] 67 [in_i] [facility] ([facility]) Body mass index (BMI) [Ratio] 24.1 kg/m2 24.1 k g/m2 [facility] ([facility]) Systolic blood pressure 104 mm[Hg] 104 mm[Hg] A THENA ([facility]) Body weight 2464 [oz_av] 2464 [oz_av] [facility] ([facility]) Diastolic blood pressure 74 mm[Hg] 74 mm[Hg] [facility] ([facility]) Body height 67 [in_i] 67 [in_i] [facility] ([facility]) Body mass index (BMI) [Ratio] 24.1 kg/m2 24.1 k g/m2 [facility] ([facility]) Systolic blood pressure 104 mm[Hg] 104 mm[Hg] A THENA ([facility]) Body weight 2464 [oz_av] 2464 [oz_av] [facility] ([facility]) Body height 67 [in_i] 67 [in_i] [facility] ([facility]) Body mass index (BMI) [Ratio] 24.1 kg/m2 24.1 k g/m2 [facility] ([facility]) Systolic blood pressure 104 mm[Hg] 104 mm[Hg] [facility] Body weight 2464 [oz_av] 2464 [oz_av] [facility] ([facility]) Diastolic blood pressure 74 mm[Hg] 74 mm[Hg] [facility] ([facility]) Systolic blood pressure 114 mm[Hg] 114 mm[Hg] [facility] Diastolic blood pressure 77 mm[Hg] 77 mm[Hg] [facility] ([facility]) Body height 67 [in_i] 67 [in_i] [facility] ([facility]) Body mass index (BMI) [Ratio] 26.2 kg/m2 26.2 k g/m2 [facility] ([facility]) Body weight 2680 [oz_av] 2680 [oz_av] [facility] ([facility]) Diastolic blood pressure 77 mm[Hg] 77 mm[Hg] [facility] ([facility]) Body height 67 [in_i] 67 [in_i] [facility] ([facility]) Body mass index (BMI) [Ratio] 26.2 kg/m2 26.2 k g/m2 [facility] ([facility]) Systolic blood pressure 114 mm[Hg] 114 mm[Hg] [facility] Body weight 2680 [oz_av] 2680 [oz_av] [facility] ([facility]) Diastolic blood pressure 77 mm[Hg] 77 mm[Hg] [facility] ([facility]) Body height 67 [in_i] 67 [in_i] [facility] ([facility]) Body mass index (BMI) [Ratio] 26.2 kg/m2 26.2 k g/m2 [facility] ([facility]) Systolic blood pressure 114 mm[Hg] 114 mm[Hg] [facility] Body weight 2680 [oz_av] 2680 [oz_av] [facility] ([facility]) Diastolic blood pressure 77 mm[Hg] 77 mm[Hg] [facility] ([facility]) Body height 67 [in_i] 67 [in_i] [facility] ([facility]) Body mass index (BMI) [Ratio] 26.2 kg/m2 26.2 k g/m2 [facility] ([facility]) Systolic blood pressure 114 mm[Hg] 114 mm[Hg] A THENA ([facility]) Body weight 2680 [oz_av] 2680 [oz_av] [facility] ([facility]) Diastolic blood pressure 77 mm[Hg] 77 mm[Hg] [facility] ([facility]) Body height 67 [in_i] 67 [in_i] [facility] ([facility]) Body mass index (BMI) [Ratio] 26.2 kg/m2 26.2 k g/m2 [facility] ([facility]) Systolic blood pressure 114 mm[Hg] 114 mm[Hg] A [facility] ([facility]) Body weight 2680 [oz_av] 2680 [oz_av] [facility] ([facility]) Diastolic blood pressure 77 mm[Hg] 77 mm[Hg] [facility] ([facility]) Body height 67 [in_i] 67 [in_i] [facility] ([facility]) Body mass index (BMI) [Ratio] 26.2 kg/m2 26.2 k g/m2 [facility] ([facility]) Systolic blood pressure 114 mm[Hg] 114 mm[facility]Hg] [facility] Body weight 2680 [oz_av] 2680 [oz_av] [facility] ([facility]) Diastolic blood pressure 77 mm[Hg] 77 mm[Hg] [facility] ([facility]) Body height 67 [in_i] 67 [in_i] [facility] ([facility]) Body mass index (BMI) [Ratio] 26.2 kg/m2 26.2 k g/m2 [facility] ([facility]) Systolic blood pressure 114 mm[Hg] 114 mm[Hg] [facility] Body weight 2680 [oz_av] 2680 [oz_av] [facility] ([facility]) Patient Treatment Plan of Care Planned Activity Planned Date Details Description Data Source (s) tramadol hydrochloride 50 MG Oral Tablet [facility] ([facility]) Prochlorperazine 25 MG Rectal Suppository [facility] ([facility]) Penicillin V Potassium 500 MG Oral Tablet [facility] ([facility]) pantoprazole 40 MG Delayed Release Oral Tablet [facility] ([facility]) 8 HR Acetaminophen 650 MG Extended Release Oral Tablet [facility] ([facility]) Oxycodone Hydrochloride 5 MG Oral Tablet [facility] ([facility]) OneTouch Verio Flex Meter USE DIRECTED TO TEST BLOOD SUGAR [facility] ([facility]) OneTouch Delica Plus Lancet 33 gauge [facility] ([facility]) Ondansetron 4 MG Oral Tablet [facility] ([facility]) Ondansetron 4 MG Disintegrating Oral Tablet [facility] ([facility]) Omeprazole 20 MG Delayed Release Oral Capsule [facility] ([facility]) insulin human, isophane 70 UNT/ML / Regu lar Insulin, Human 30 UNT/ML Injectable Suspension [Novolin] [facility] ([facility]) multivitamin Take one daily [facility] ([facility]) Metoclopramide 5 MG Oral Tablet [facility] ([facility]) Metoclopramide 10 MG Oral Tablet [facility] ([facility]) Levemir FlexTouch U-100 Insuln Pen; give 5 units daily [facility] ([facility]) Regular Insulin, Human 100 UNT/ML Injectable Solution [Humulin R] [facility] ([facility]) Docusate Sodium 100 MG Oral Capsule [facility] ([facility]) Sucralfate 1000 MG Oral Tablet [Carafate] [facility] ([facility]) BD Ultra-Fine Short Pen Needle 31 gauge x 5/16" USE DIRECTED WITH BASAGLAR ONCE DAILY AT BEDTIME [facility] ([facility]) BD Ultra-Fine Sonya Pen Needle 32 gauge x 5/32" USE UNDER THE SKIN DAILY DIRECTED [facility] ([facility]) BD Insulin Syringe Ultra-Fine 1 mL 31 gauge x 5/16" USE DIRECTED [facility] ([facility]) BD Insulin Syringe Ultra-Fine 0.5 mL 31 gauge x 5/16" USE WITH INSULIN MEALS AND AT BEDTIME [facility] ([facility]) Basaglar KwikPen U-100 Insulin Take 5 units SC daily [facility] ([facility]) Amoxicillin 875 MG / Clavulanate 125 MG Oral Tablet [facility] ([facility]) Amoxicillin 875 MG Oral Tablet [facility] ([facility]) Amitriptyline Hydrochloride 10 MG Oral Tablet [facility] ([facility]) Isopropyl Alcohol 0.7 ML/ML Medicated Pad [facility] ([facility]) Acetaminophen 650 MG Oral Tablet [facility] ([facility]) tramadol hydrochloride 50 MG Oral Tablet [facility] ([facility]) Prochlorperazine 25 MG Rectal Suppository [facility] ([facility]) Penicillin V Potassium 500 MG Oral Tablet [facility] ([facility]) 8 HR Acetaminophen 650 MG Extended Release Oral Tablet [facility] ([facility]) Oxycodone Hydrochloride 5 MG Oral Tablet [facility] ([facility]) Ondansetron 4 MG Oral Tablet [facility] ([facility]) Ondansetron 4 MG Disintegrating Oral Tablet [facility] ([facility]) Omeprazole 20 MG Delayed Release Oral Capsule [facility] ([facility]) insulin human, isophane 70 UNT/ML / Regu lar Insulin, Human 30 UNT/ML Injectable Suspension [Novolin] [facility] ([facility]) Metoclopramide 5 MG Oral Tablet [facility] ([facility]) Levemir FlexTouch U-100 Insuln Pen; give 5 units daily [facility] ([facility]) Regular Insulin, Human 100 UNT/ML Injectable Solution [Humulin R] [facility] ([facility]) Sucralfate 1000 MG Oral Tablet [Carafate] [facility] ([facility]) Basaglar KwikPen U-100 Insulin 100 unit/mL (3 mL) subcutaneous [facility] ([facility]) Amoxicillin 875 MG / Clavulanate 125 MG Oral Tablet [facility] ([facility]) Amoxicillin 875 MG Oral Tablet [facility] ([facility]) Amitriptyline Hydrochloride 10 MG Oral Tablet [facility] ([facility]) Acetaminophen 650 MG Oral Tablet [facility] ([facility]) tramadol hydrochloride 50 MG Oral Tablet [facility] ([facility]) Prochlorperazine 25 MG Rectal Suppository [facility] ([facility]) Penicillin V Potassium 500 MG Oral Tablet [facility] ([facility]) pantoprazole 40 MG Delayed Release Oral Tablet [facility] ([facility]) 8 HR Acetaminophen 650 MG Extended Release Oral Tablet [facility] ([facility]) Oxycodone Hydrochloride 5 MG Oral Tablet [facility] ([facility]) Ondansetron 4 MG Oral Tablet [facility] ([facility]) Ondansetron 4 MG Disintegrating Oral Tablet [facility] ([facility]) Omeprazole 20 MG Delayed Release Oral Capsule [facility] ([facility]) Metoclopramide 5 MG Oral Tablet [facility] ([facility]) Metoclopramide 10 MG Oral Tablet [facility] ([facility]) Regular Insulin, Human 100 UNT/ML Injectable Solution [Humulin R] [facility] ([facility]) Sucralfate 1000 MG Oral Tablet [Carafate] [facility] ([facility]) Basaglar KwikPen U-100 Insulin 100 unit/mL (3 mL) subcutaneous [facility] ([facility]) Basaglar KwikPen U-100 Insulin 10 units sc QHS [facility] ([facility]) Amoxicillin 875 MG / Clavulanate 125 MG Oral Tablet [facility] ([facility]) Amoxicillin 875 MG Oral Tablet [facility] ([facility]) Acetaminophen 650 MG Oral Tablet [facility] ([facility]) tramadol hydrochloride 50 MG Oral Tablet [facility] ([facility]) Prochlorperazine 25 MG Rectal Suppository [facility] ([facility]) Penicillin V Potassium 500 MG Oral Tablet [facility] ([facility]) pantoprazole 40 MG Delayed Release Oral Tablet [facility] ([facility]) 8 HR Acetaminophen 650 MG Extended Release Oral Tablet [facility] ([facility]) Oxycodone Hydrochloride 5 MG Oral Tablet [facility] ([facility]) Ondansetron 4 MG Oral Tablet [facility] ([facility]) Ondansetron 4 MG Disintegrating Oral Tablet [facility] ([facility]) Omeprazole 20 MG Delayed Release Oral Capsule [facility] ([facility]) Metoclopramide 5 MG Oral Tablet [facility] ([facility]) Metoclopramide 10 MG Oral Tablet [facility] ([facility]) Sucralfate 1000 MG Oral Tablet [Carafate] [facility] ([facility]) Basaglar KwikPen U-100 Insulin 100 unit/mL (3 mL) subcutaneous [facility] ([facility]) Basaglar KwikPen U-100 Insulin 10 units sc QHS [facility] ([facility]) Amoxicillin 875 MG / Clavulanate 125 MG Oral Tablet [facility] ([facility]) Amoxicillin 875 MG Oral Tablet [facility] ([facility]) Acetaminophen 650 MG Oral Tablet [facility] ([facility]) tramadol hydrochloride 50 MG Oral Tablet [facility] ([facility]) pantoprazole 40 MG Delayed Release Oral Tablet [Protonix] [facility] ([facility]) Prochlorperazine 25 MG Rectal Suppository [facility] ([facility]) Penicillin V Potassium 500 MG Oral Tablet [facility] ([facility]) 8 HR Acetaminophen 650 MG Extended Release Oral Tablet [facility] ([facility]) Oxycodone Hydrochloride 5 MG Oral Tablet [facility] ([facility]) Ondansetron 4 MG Oral Tablet [facility] ([facility]) Ondansetron 4 MG Disintegrating Oral Tablet [facility] ([facility]) Omeprazole 20 MG Delayed Release Oral Capsule [facility] ([facility]) Metoclopramide 5 MG Oral Tablet [facility] ([facility]) Metoclopramide 10 MG Oral Tablet [facility] ([facility]) Sucralfate 1000 MG Oral Tablet [Carafate] [facility] ([facility]) Basaglar KwikPen U-100 Insulin 100 unit/mL (3 mL) subcutaneous [facility] ([facility]) Basaglar KwikPen U-100 Insulin 10 units sc QHS [facility] ([facility]) Amoxicillin 875 MG Oral Tablet [facility] ([facility]) Acetaminophen 650 MG Oral Tablet [facility] ([facility]) Prochlorperazine 25 MG Rectal Suppository [facility] ([facility]) Penicillin V Potassium 500 MG Oral Tablet [facility] ([facility]) Oxycodone Hydrochloride 5 MG Oral Tablet [facility] ([facility]) Ondansetron 4 MG Oral Tablet [facility] ([facility]) Ondansetron 4 MG Disintegrating Oral Tablet [facility] ([facility]) Omeprazole 20 MG Delayed Release Oral Capsule [facility] ([facility]) Cristianotriravindra BlankElan U-100 Insulin 100 unit/mL (3 mL) subcutaneous [facility] ([facility]) Amoxicillin 875 MG Oral Tablet [facility] ([facility]) Prochlorperazine 25 MG Rectal Suppository [facility] ([facility]) Penicillin V Potassium 500 MG Oral Tablet [facility] ([facility]) Oxycodone Hydrochloride 5 MG Oral Tablet [facility] ([facility]) Ondansetron 4 MG Oral Tablet [facility] ([facility]) Omeprazole 20 MG Delayed Release Oral Capsule [facility] ([facility]) Metoclopramide 5 MG Oral Tablet [facility] ([facility]) Metoclopramide 10 MG Oral Tablet [facility] ([facility])
--- NOTE | 2021-02-14 12:09 | REP ---
INDICATION: CHEST PAIN. COMPARISON: Multiple the latest 09/16/2020 TECHNIQUE: Portable FINDINGS: The technique utilized in obtaining the radiograph has magnified the cardiac silhouette and accentuated the interstitial markings. The superior mediastinal structures are midline. The cardiac silhouette is unremarkable in size, shape, and position. The diaphragmatic surfaces of the lungs are regular, and the costophrenic angles are clear. The pulmonary aponte are clear. The imaged osseous structures are intact. IMPRESSION: There is no acute cardiopulmonary disease. <Electronically signed by Bird Betts > 02/14/21 [id number]
[2021-02-14] MEDS ORDERED: NS 1,000 ML IV ONE ×2 (12:20→14:05)
--- OUTSIDE RECORDS SUMMARY | 2021-02-14 12:57 | CCD ---
Author Author [facility] Organization [facility] Address Unknown Phone Unavailable Care Team Providers Care [facility] Supervisor Name Role Phone Kimberley, Lisa Unavailable Unavailable [...] Unavailable Tamia Lopez MD Unavailable Unavailable Tamia Lpoez MD Unavailable Unavailable Tamia Lopez MD Unavailable Unavailable Tamia Lopez MD Unavailable Unavailable Tamia Lopez MD Unavailable Unavailable Tamia Lopez MD Unavailable Unavailable Tamia Lopez MD Unavailable Unavailable Tamia Lopez MD Unavailable Unavailable Tamia Lopez MD Unavailable Unavailable Tamia Loepz MD Unavailable Unavailable Tamia Lopez MD Unavailable [...] Unavailable Tamia Lopez MD Unavailable Unavailable Tamia Loepz MD Unavailable Unavailable Tamia Lopez MD Unavailable [...] Unavailable Unavailable Radha Rowland MD Unavailable Unavailable Radah Rowland MD Unavailable Unavailable Radha Rowland MD [...] is protected by Article 27-F of the [facility] Public Health law. If you continue you may have access to information: Regarding HIV / AIDS; Provided by facilities licensed or operated by the [facility] Office of Mental Health; or Provided by the [facility] Office for People With Developmental Disabilities. If such information is present, then the following [facility] mandated warning applies: This information has [...] law may result in a fine or shelter sentence or both. A general authorization for the release of medical or other information is NOT sufficient authorization for further disc losure. Encounters Encounter Providers Location Date Indications Data Source(s ) Outpatient Attender: Radha HENDERSONeferrer: ISMAEL CHU 05/30/2021 12:00:00 AM [facility] Ismael Chu MD: [address] [place] [address], Ph. Attender: Ismael Chu [facility] Medical 12/26/2020 12:00:00 AM EDT [facility] ([facility]) Ismael Chu MD: [address] [place] [address], Ph. Attender: Ismael Chu [facility] Medical 10/31/2020 12:00:00 AM EDT [facility] ([facility]) Ismael Chu MD: [address] [facility] [place] [address], Ph. Attender: Ismael Chu [facility] Medical 10/31/2020 12:00:00 AM EDT [facility] ([facility]) Ismael Chu MD: [address], [place] [address], Ph. Attender: Ismael Chu [facility] Medical 10/10/2020 12:00:00 AM EDT [facility] ([facility]) Ismael Chu MD: [address], [place] [address], Ph. Attender: Ismael Chu [facility] Medical 10/10/2020 12:00:00 AM EDT [facility] ([facility]) Ismael Chu MD: [address], [place] [address], Ph. Attender: Ismael Chu [facility] Medical 10/10/2020 12:00:00 AM EDT [facility] ([facility]) Ismael hCu MD: [address], [place] [address], Ph. Attender: Ismael Chu [facility] Medical 09/19/2020 12:00:00 AM EDT [facility] ([facility]) Ismael Chu MD: [address], [place] [address], Ph. Attender: Ismael Chu [facility] Medical 09/19/2020 12:00:00 AM EDT [facility] ([facility]) Ismael Chu MD: [address], [place] [address], Ph. Attender: Ismael Chu [facility] Medical 09/19/2020 12:00:00 AM EDT [facility] ([facility]) Ismael Chu MD: [address], [place] [address], Ph. Attender: Ismael Chu [facility] Medical 09/19/2020 12:00:00 AM EDT [facility] ([facility]) Ismael Chu MD: [address], [place] [address], Ph. Attender: Ismael Chu [facility] Medical 08/17/2020 12:00:00 AM EDT [facility] ([facility]) Ismael Chu MD: [address], [place] [address], Ph. Attender: Ismael Chu [facility] Medical 08/17/2020 12:00:00 AM EDT [facility] ([facility]) Ismael Chu MD: [address], [place] [address], Ph. Attender: Ismael Chu [facility] Medical 08/17/2020 12:00:00 AM EDT [facility] ([facility]) Ismael Chu MD: [address], [place] [address], Ph. Attender: Ismael Chu [facility] Medical 08/17/2020 12:00:00 AM EDT [facility] ([facility]) Ismael Chu MD: [address], [place] [address], Ph. Attender: Ismael Chu [facility] Medical 08/17/2020 12:00:00 AM EDT [facility] ([facility]) Katie Yoo PA-C: [address], [place] [address], Ph. Attender: Katie NELSON [facility] Medical 07/10/2020 12:00:00 AM EDT [facility] ([facility]) Katie Yoo PA-C: [address], [place] [address], Ph. Attender: Katie NELSON [facility] Medical 07/10/2020 12:00:00 AM EDT [facility] ([facility]) Katie Yoo PA-C: [address], [place] [address], Ph. Attender: Katie NELSON [facility] Medical 07/10/2020 12:00:00 AM EDT [facility] ([facility]) Katie Yoo PA-C: [address], [place] [address], Ph. Attender: Katie NELSON [facility] Medical 07/10/2020 12:00:00 AM EDT [facility] ([facility]) Katie Yoo PA-C: [address], [place] [address], Ph. Attender: Katie NELSON [facility] Medical 07/10/2020 12:00:00 AM EDT [facility] ([facility]) Katie Yoo PA-C: [address], [place] [address], Ph. Attender: Katie NELSON [facility] Medical 07/10/2020 12:00:00 AM EDT [facility] ([facility]) Katie Yoo PA-C: [address], [place] [address], Ph. Attender: Katie ENLSON [facility] Medical 02/23/2020 12:00:00 AM EST [facility] ([facility]) Katie Yoo PA-C: [address], [place] [address], Ph. Attender: Katie NELSON [facility] Medical 02/23/2020 12:00:00 AM EST [facility] ([facility]) Katie Yoo PA-C: [address], [place] [address], Ph. Attender: Katie NELSON [facility] Medical 02/23/2020 12:00:00 AM EST [facility] ([facility]) Katie Yoo PA-C: [address], [place] [address], Ph. Attender: Katie NELSON [facility] Medical 02/23/2020 12:00:00 AM EST [facility] ([facility]) Katie Yoo PA-C: [address], [place] [address], Ph. Attender: Katie NELSON [facility] Medical 02/23/2020 12:00:00 AM EST [facility] ([facility]) Katie Yoo PA-C: [address], [place] [address], Ph. Attender: Katie NELSON [facility] Medical 02/23/2020 12:00:00 AM EST [facility] ([facility]) Katie Yoo PA-C: [address], [place] [address], Ph. Attender: Katie NELSON [facility] Medical 02/23/2020 12:00:00 AM EST [facility] ([facility]) Outpatient Attender: Abraham Lopez MD 02/22/2020 02:58:01 PM EST [facility] Medications Medication Brand Name Start Date [...] ondansetron 4 MG Disintegrating Oral Tablet [facility] ([facility]) Acetaminophen 650 MG Oral Tablet acetami nophen 650 mg tablet Take 1 tablet 3 times a day by oral route. acetaminophen 650 mg tablet Take 1 table t 3 times a day by oral route. 1 completed sanjana taminophen 650 MG Oral Tablet [facility] ([facility]) Basaglar KwikPen U-100 Insulin 10 units sc QHS completed Basaglar KwikPen U-100 Insulin [facility] ([facility]) Sucralfate 1000 MG Oral Tablet [Carafate ] Carafate 1 gram tablet Take 1 tablet twice a day by oral route as directed. Carafate 1 gram tablet Take 1 tablet twice a day by oral route as directed. 1 completed sucralfate 1000 MG Oral Tablet [Carafate] [facility] ([facility]) Ondansetron 4 MG Disintegrating Oral Tab let ondansetron 4 mg disintegrating tablet DISSOLVE ONE TABLET ON TONGUE EVERY 6 TO 8 HOURS NEEDED FOR NAUSEA AND VOMITING ondansetron 4 mg disintegrating tablet D ISSOLVE ONE TABLET ON TONGUE EVERY 6 TO 8 HOURS NEEDED FOR NAUSEA AND VOMITING completed ondansetron 4 MG Disintegrating Oral Tablet [facility] ([facility]) Basaglar KwikPen U-100 Insulin 100 unit/mL (3 mL) subcutaneous [id number] completed 3 ML insulin glargine 100 UN T/ML Pen Injector [Basaglar] [facility] ([facility]) Amoxicillin 875 MG / Clavulanate 125 MG Oral Tablet amoxicillin 875 mg-potassium clavulanate 125 mg tablet TAKE ONE TABLET BY MOUTH EVERY 12 HOURS amoxicillin 875 mg-potassium clavulanate 125 mg tablet TAKE ONE TABLET BY MOUTH EVERY 12 HOURS completed amoxici llin 875 MG / clavulanate 125 MG Oral Tablet [facility] ([facility]) Omeprazole 20 MG Delayed Release Oral Ca psule omeprazole 20 mg capsule,delayed release TAKE ONE CAPSULE BY MOUTH TWICE A DAY omeprazole 20 mg capsule,delayed release TAKE ONE CAPSULE BY MOUTH TWICE A DAY completed omeprazole 20 MG Delayed Release Oral Capsule [facility] ([facility]) Penicillin V Potassium 500 MG Oral Table t penicillin V potassium 500 mg tablet TAKE ONE TABLET BY MOUTH TWICE A DAY penicillin V potassium 500 mg tablet ELIAS E ONE TABLET BY MOUTH TWICE A DAY comple pau penicillin V potassium 500 MG Oral Tablet [facility] ([facility]) BD Insulin Syringe Ultra-Fine 0.5 mL 31 gauge x 5/16" USE WITH INSULIN MEALS AND AT BEDTIME [id number] completed BD Insulin Syringe Ultra-Fine 0.5 mL 31 gauge x 5/16" [facility] ([facility]) Basaglar KwikPen U-100 Insulin Take 5 units SC daily completed Basaglar KwikPen U-100 Insulin [facility] ([facility]) Amoxicillin 875 MG Oral Tablet amoxicillin 875 mg tabl et amoxicillin 875 mg tablet completed amoxicillin 875 MG Oral Tablet [facility] ([facility]) tramadol hydrochloride 50 MG Oral Tablet tramadol 50 mg tablet Take 1 tablet every 4 hours by oral route as needed. tramadol 50 mg tablet Take 1 tablet ever y 4 hours by oral route as needed. 1 comp leted tramadol hydrochloride 50 MG Oral Tablet [facility] ([facility]) multivitamin Take one daily completed multivitamin [facility] ([facility]) 8 HR Acetaminophen 650 MG Extended Relea se Oral Tablet Pain Relief (acetaminophen) 650 mg tablet,extended release Pain Relief (acetaminophen) 650 mg tablet,extended release completed 8 HR acetaminophen 650 MG Extended Release Oral Tablet [facility] ([facility]) Ondansetron 4 MG Oral Tablet ondansetron HCl 4 mg tabl et ondansetron HCl 4 mg tablet completed ondansetron 4 M G Oral Tablet [facility] ([facility]) Acetaminophen 650 MG Oral Tablet acetami nophen 650 mg tablet Take 1 tablet 3 times a day by oral route. acetaminophen 650 mg tablet Take 1 table t 3 times a day by oral route. 1 completed sanjana taminophen 650 MG Oral Tablet [facility] ([facility]) Metoclopramide 10 MG Oral Tablet metoclo pramide 10 mg tablet Take 1 tablet 3 times a day by oral route as directed. metoclopramide 10 mg tablet Take 1 table t 3 times a day by oral route as directed. 1 completed metoclopramide 10 MG Oral Tablet [facility] ([facility]) Ondansetron 4 MG Oral Tablet ondansetron HCl 4 mg tabl et ondansetron HCl 4 mg tablet completed ondansetron 4 M G Oral Tablet [facility] ([facility]) tramadol hydrochloride 50 MG Oral Tablet tramadol 50 mg tablet Take 1 tablet every 4 hours by oral route as needed. tramadol 50 mg tablet Take 1 tablet ever y 4 hours by oral route as needed. 1 comp leted tramadol hydrochloride 50 MG Oral Tablet [facility] ([facility]) Metoclopramide 10 MG Oral Tablet metoclopramide 10 mg tablet metoclopramide 10 mg tablet completed metocloprami de 10 MG Oral Tablet [facility] ([facility]) Oxycodone Hydrochloride 5 MG Oral Tablet oxycodone 5 m g tablet oxycodone 5 mg tablet completed oxycodone hydro chloride 5 MG Oral Tablet [facility] ([facility]) Amoxicillin 875 MG Oral Tablet amoxicillin 875 mg tabl et amoxicillin 875 mg tablet completed amoxicillin 875 MG Oral Tablet [facility]) Basaglar KwikPen U-100 Insulin 100 unit/mL (3 mL) subcutaneous [id number] completed 3 ML insulin glargine 100 UN T/ML Pen Injector [Basaglar] [facility] ([facility]) pantoprazole 40 MG Delayed Release Oral Tablet pantoprazole 40 mg tablet,delayed release Take 1 tablet every day by oral route. pantoprazole 40 mg tablet,delayed release Take 1 tablet every day by oral route. 1 completed pantoprazole 40 MG Delayed Relea se Oral Tablet [facility] ([facility]) Penicillin V Potassium 500 MG Oral Table t penicillin V potassium 500 mg tablet TAKE ONE TABLET BY MOUTH TWICE A DAY penicillin V potassium 500 mg tablet ELIAS E ONE TABLET BY MOUTH TWICE A DAY comple pau penicillin V potassium 500 MG Oral Tablet [facility] ([facility]) Amoxicillin 875 MG / Clavulanate 125 MG Oral Tablet amoxicillin 875 mg-potassium clavulanate 125 mg tablet TAKE ONE TABLET BY MOUTH EVERY 12 HOURS amoxicillin 875 mg-potassium clavulanate 125 mg tablet TAKE ONE TABLET BY MOUTH EVERY 12 HOURS completed amoxici llin 875 MG / clavulanate 125 MG Oral Tablet [facility] ([facility]) 8 HR Acetaminophen 650 MG Extended Relea se Oral Tablet Pain Relief (acetaminophen) 650 mg tablet,extended release Pain Relief (acetaminophen) 650 mg tablet,extended release completed 8 HR acetaminophen 650 MG Extended Release Oral Tablet [facility]) Prochlorperazine 25 MG Rectal Suppositor y prochlorperazine 25 mg rectal suppository INSERT ONE SUPPOSITORY RECTALLY EVERY 8 HOURS NEEDED FOR NAUSEA prochlorperazine 25 mg rectal suppository INSERT ONE SUPPOSITORY RECTALLY EVERY 8 HOURS NEEDED FOR NAUSEA completed prochlorperazine 25 MG Rectal Suppository [facility] ([facility]) pantoprazole 40 MG Delayed Release Oral Tablet [Protonix] Protonix 40 mg tablet,delayed release Take 1 tablet every day by oral route. Protonix 40 mg tablet,delayed release Take 1 tablet every day by oral route. 1 completed pantoprazole 40 MG Delayed Relea se Oral Tablet [Protonix] [facility] ([facility]) Prochlorperazine 25 MG Rectal Suppositor y prochlorperazine 25 mg rectal suppository INSERT ONE SUPPOSITORY RECTALLY EVERY 8 HOURS NEEDED FOR NAUSEA prochlorperazine 25 mg rectal suppository INSERT ONE SUPPOSITORY RECTALLY EVERY 8 HOURS NEEDED FOR NAUSEA completed prochlorperazine 25 MG Rectal Suppository [facility] ([facility]) Ondansetron 4 MG Oral Tablet ondansetron HCl 4 mg tabl et ondansetron HCl 4 mg tablet completed ondansetron 4 M G Oral Tablet [facility] ([facility]) Penicillin V Potassium 500 MG Oral Table t penicillin V potassium 500 mg tablet TAKE ONE TABLET BY MOUTH TWICE A DAY penicillin V potassium 500 mg tablet ELIAS E ONE TABLET BY MOUTH TWICE A DAY comple pau penicillin V potassium 500 MG Oral Tablet [facility] ([facility]) Ondansetron 4 MG Oral Tablet ondansetron HCl 4 mg tabl et ondansetron HCl 4 mg tablet completed ondansetron 4 M G Oral Tablet [facility] ([facility]) Metoclopramide 5 MG Oral Tablet metoclopramide 5 mg ta blet metoclopramide 5 mg tablet completed metoclopramide 5 MG Oral Tablet [facility] ([facility]) Ondansetron 4 MG Oral Tablet ondansetron HCl 4 mg tabl et ondansetron HCl 4 mg tablet completed ondansetron 4 M G Oral Tablet [facility] ([facility]) Oxycodone Hydrochloride 5 MG Oral Tablet oxycodone 5 m g tablet oxycodone 5 mg tablet completed oxycodone hydro chloride 5 MG Oral Tablet [facility] ([facility]) Metoclopramide 10 MG Oral Tablet metoclopramide 10 mg tablet metoclopramide 10 mg tablet completed metocloprami de 10 MG Oral Tablet [facility] ([facility]) Isopropyl Alcohol 0.7 ML/ML Medicated Pad Alcohol Prep Pads USE DIRECTED Alcohol Prep Pads USE DIRECTED comp leted isopropyl alcohol 0.7 ML/ML Medicated Pad [facility] ([facility]) Regular Insulin, Human 100 UNT/ML Inject able [...] 100 UNT/ML Injectable Solution [Humulin R] [facility] ([facility]) Omeprazole 20 MG Delayed Release Oral Ca psule omeprazole 20 mg capsule,delayed release TAKE ONE CAPSULE BY MOUTH TWICE A DAY omeprazole 20 mg capsule,delayed release TAKE ONE CAPSULE BY MOUTH TWICE A DAY completed omeprazole 20 MG Delayed Release Oral Capsule [facility] ([facility]) Levemir FlexTouch U-100 Insuln Pen; give 5 units daily completed Levemir [facility] ([facility]) OneTouch Verio Flex Meter USE DIRECTED TO TEST BLOOD SUGAR [id number] completed OneTouch Verio Flex Meter AT [facility] ([facility]) Prochlorperazine 25 MG Rectal Suppositor y prochlorperazine 25 mg rectal suppository INSERT ONE SUPPOSITORY RECTALLY EVERY 8 HOURS NEEDED FOR NAUSEA prochlorperazine 25 mg rectal suppository INSERT ONE SUPPOSITORY RECTALLY EVERY 8 HOURS NEEDED FOR NAUSEA completed prochlorperazine 25 MG Rectal Suppository [facility] ([facility]) Ondansetron 4 MG Disintegrating Oral Tab let ondansetron 4 mg disintegrating tablet DISSOLVE ONE TABLET ON TONGUE EVERY 6 TO 8 HOURS NEEDED FOR NAUSEA AND VOMITING ondansetron 4 mg disintegrating tablet D ISSOLVE ONE TABLET ON TONGUE EVERY 6 TO 8 HOURS NEEDED FOR NAUSEA AND VOMITING completed ondansetron 4 MG Disintegrating Oral Tablet [facility] ([facility]) Penicillin V Potassium 500 MG Oral Table t penicillin V potassium 500 mg tablet TAKE ONE TABLET BY MOUTH TWICE A DAY penicillin V potassium 500 mg tablet ELIAS E ONE TABLET BY MOUTH TWICE A DAY comple pau penicillin V potassium 500 MG Oral Tablet [facility] ([facility]) Ondansetron 4 MG Oral Tablet ondansetron HCl 4 mg tabl et ondansetron HCl 4 mg tablet completed ondansetron 4 M G Oral Tablet [facility] ([facility]) Basaglar KwikPen U-100 Insulin 100 unit/mL (3 mL) subcutaneous [id number] completed 3 ML insulin glargine 100 UN T/ML Pen Injector [Basaglar] [facility] ([facility]) Basaglar KwikPen U-100 Insulin 100 unit/mL (3 mL) subcutaneous [id number] completed 3 ML insulin glargine 100 UN T/ML Pen Injector [Basaglar] [facility] ([facility]) Omeprazole 20 MG Delayed Release Oral Ca psule omeprazole 20 mg capsule,delayed release TAKE ONE CAPSULE BY MOUTH TWICE A DAY omeprazole 20 mg capsule,delayed release TAKE ONE CAPSULE BY MOUTH TWICE A DAY completed omeprazole 20 MG Delayed Release Oral Capsule [facility] ([facility]) pantoprazole 40 MG Delayed Release Oral Tablet pantoprazole 40 mg tablet,delayed release Take 1 tablet every day by oral route. pantoprazole 40 mg tablet,delayed release Take 1 tablet every day by oral route. 1 completed pantoprazole 40 MG Delayed Relea se Oral Tablet [facility] ([facility]) Acetaminophen 650 MG Oral Tablet acetami nophen 650 mg tablet Take 1 tablet 3 times a day by oral route. acetaminophen 650 mg tablet Take 1 table t 3 times a day by oral route. 1 completed sanjana taminophen 650 MG Oral Tablet [facility] ([facility]) Prochlorperazine 25 MG Rectal Suppositor y prochlorperazine 25 mg rectal suppository INSERT ONE SUPPOSITORY RECTALLY EVERY 8 HOURS NEEDED FOR NAUSEA prochlorperazine 25 mg rectal suppository INSERT ONE SUPPOSITORY RECTALLY EVERY 8 HOURS NEEDED FOR NAUSEA completed prochlorperazine 25 MG Rectal Suppository [facility] ([facility]) Prochlorperazine 25 MG Rectal Suppositor y prochlorperazine 25 mg rectal suppository INSERT ONE SUPPOSITORY RECTALLY EVERY 8 HOURS NEEDED FOR NAUSEA prochlorperazine 25 mg rectal suppository INSERT ONE SUPPOSITORY RECTALLY EVERY 8 HOURS NEEDED FOR NAUSEA completed prochlorperazine 25 MG Rectal Suppository [facility] ([facility]) Penicillin V Potassium 500 MG Oral Table t penicillin V potassium 500 mg tablet TAKE ONE TABLET BY MOUTH TWICE A DAY penicillin V potassium 500 mg tablet ELIAS E ONE TABLET BY MOUTH TWICE A DAY comple pau penicillin V potassium 500 MG Oral Tablet [facility] ([facility]) Levemir FlexTouch U-100 Insuln Pen; give 5 units daily completed Levemir [facility] ([facility]) Basaglar KwikPen U-100 Insulin 100 unit/mL (3 mL) subcutaneous [id number] completed 3 ML insulin glargine 100 UN T/ML Pen Injector [Basaglar] [facility] ([facility]) Prochlorperazine 25 MG Rectal Suppositor y prochlorperazine 25 mg rectal suppository INSERT ONE SUPPOSITORY RECTALLY EVERY 8 HOURS NEEDED FOR NAUSEA prochlorperazine 25 mg rectal suppository INSERT ONE SUPPOSITORY RECTALLY EVERY 8 HOURS NEEDED FOR NAUSEA completed prochlorperazine 25 MG Rectal Suppository [facility] ([facility]) Metoclopramide 5 MG Oral Tablet metoclop ramide 5 mg tablet TAKE ONE TABLET BY MOUTH EVERY DAY BEFORE MEALS AND AT BEDTIME metoclopramide 5 mg tablet TAKE ONE TABLET BY MOUTH EVERY DAY BEFORE MEALS AND AT BEDTIME completed metoclopramide 5 MG Oral Tablet [facility] ([facility]) Metoclopramide 5 MG Oral Tablet metoclopramide 5 mg ta blet metoclopramide 5 mg tablet completed metoclopramide 5 MG Oral Tablet [facility] ([facility]) Ondansetron 4 MG Disintegrating Oral Tab let ondansetron 4 mg disintegrating tablet DISSOLVE ONE TABLET ON TONGUE EVERY 6 TO 8 HOURS NEEDED FOR NAUSEA AND VOMITING ondansetron 4 mg disintegrating tablet D ISSOLVE ONE TABLET ON TONGUE EVERY 6 TO 8 HOURS NEEDED FOR NAUSEA AND VOMITING completed ondansetron 4 MG Disintegrating Oral Tablet [facility] ([facility]) Metoclopramide 10 MG Oral Tablet metoclopramide 10 mg tablet metoclopramide 10 mg tablet completed metocloprami de 10 MG Oral Tablet [facility] ([facility]) 8 HR Acetaminophen 650 MG Extended Relea se Oral Tablet Pain Relief (acetaminophen) 650 mg tablet,extended release Pain Relief (acetaminophen) 650 mg tablet,extended release completed 8 HR acetaminophen 650 MG Extended Release Oral Tablet [facility] ([facility]) pantoprazole 40 MG Delayed Release Oral Tablet pantoprazole 40 mg tablet,delayed release Take 1 tablet every day by oral route. pantoprazole 40 mg tablet,delayed release Take 1 tablet every day by oral route. 1 completed pantoprazole 40 MG Delayed Relea se Oral Tablet [facility] ([facility]) Prochlorperazine 25 MG Rectal Suppositor y prochlorperazine 25 mg rectal suppository INSERT ONE SUPPOSITORY RECTALLY EVERY 8 HOURS NEEDED FOR NAUSEA prochlorperazine 25 mg rectal suppository INSERT ONE SUPPOSITORY RECTALLY EVERY 8 HOURS NEEDED FOR NAUSEA completed prochlorperazine 25 MG Rectal Suppository [facility] ([facility]) Amoxicillin 875 MG Oral Tablet amoxicillin 875 mg tabl et amoxicillin 875 mg tablet completed amoxicillin 875 MG Oral Tablet [facility] ([facility]) Basaglar KwikPen U-100 Insulin 10 units sc QHS completed Basaglar KwikPen U-100 Insulin [facility] ([facility]) Amoxicillin 875 MG / Clavulanate 125 MG Oral Tablet amoxicillin 875 mg-potassium clavulanate 125 mg tablet TAKE ONE TABLET BY MOUTH EVERY 12 HOURS amoxicillin 875 mg-potassium clavulanate 125 mg tablet TAKE ONE TABLET BY MOUTH EVERY 12 HOURS completed amoxici llin 875 MG / clavulanate 125 MG Oral Tablet ROMAN ([facility]) Sucralfate 1000 MG Oral Tablet [Carafate ] Carafate 1 gram tablet Take 1 tablet twice a day by oral route as directed. Carafate 1 gram tablet Take 1 tablet twice a day by oral route as directed. 1 completed sucralfate 1000 MG Oral Tablet [Carafate] ROMAN ([facility]) OneTouch Delica Plus Lancet 33 gauge [id number] completed OneTouch Delica Plus Lancet 33 gauge ROMAN ([facility]) Acetaminophen 650 MG Oral Tablet acetami nophen 650 mg tablet Take 1 tablet 3 times a day by oral route. acetaminophen 650 mg tablet Take 1 table t 3 times a day by oral route. 1 completed sanjana taminophen 650 MG Oral Tablet BRYAN ([facility]) tramadol hydrochloride 50 MG Oral Tablet tramadol 50 mg tablet Take 1 tablet every 4 hours by oral route as needed. tramadol 50 mg tablet Take 1 tablet ever y 4 hours by oral route as needed. 1 comp leted tramadol hydrochloride 50 MG Oral Tablet ROMAN ([facility]) BD Ultra-Fine Sonya Pen Needle 32 gauge x 5/32" USE UNDER THE SKIN DAILY DIRECTED [id number] completed BD Ult ra-Fine Sonya Pen Needle 32 gauge x 5/32" BRYAN ([facility]) Regular Insulin, Human 100 UNT/ML Inject able [...] 100 UNT/ML Injectable Solution [Humulin R] ROMAN ([facility]) Omeprazole 20 MG Delayed Release Oral Ca psule omeprazole 20 mg capsule,delayed release TAKE ONE CAPSULE BY MOUTH TWICE A DAY omeprazole 20 mg capsule,delayed release TAKE ONE CAPSULE BY MOUTH TWICE A DAY completed omeprazole 20 MG Delayed Release Oral Capsule BRYAN ([facility]) Ondansetron 4 MG Disintegrating Oral Tab let ondansetron 4 mg disintegrating tablet DISSOLVE ONE TABLET ON TONGUE EVERY 6 TO 8 HOURS NEEDED FOR NAUSEA AND VOMITING ondansetron 4 mg disintegrating tablet D ISSOLVE ONE TABLET ON TONGUE EVERY 6 TO 8 HOURS NEEDED FOR NAUSEA AND VOMITING completed ondansetron 4 MG Disintegrating Oral Tablet BRYAN ([facility]) Amitriptyline Hydrochloride 10 MG Oral T ablet amitriptyline 10 mg tablet Take 2 tablets every day by oral route at bedtime. amitriptyline 10 mg tablet Take 2 tablets every day by oral route at bedtime. 2 completed amitriptyline hydrochloride 10 MG Oral Tablet BRYAN ([facility]) Oxycodone Hydrochloride 5 MG Oral Tablet oxycodone 5 m g tablet oxycodone 5 mg tablet completed oxycodone hydro chloride 5 MG Oral Tablet ROMAN ([facility]) tramadol hydrochloride 50 MG Oral Tablet tramadol 50 mg tablet Take 1 tablet every 4 hours by oral route as needed. tramadol 50 mg tablet Take 1 tablet ever y 4 hours by oral route as needed. 1 compl eted tramadol hydrochloride 50 MG Oral Tablet ROMAN ([facility]) Metoclopramide 5 MG Oral Tablet metoclopramide 5 mg ta blet metoclopramide 5 mg tablet completed metoclopramide 5 MG Oral Tablet ROMAN ([facility]) Amoxicillin 875 MG Oral Tablet amoxicillin 875 mg tabl et amoxicillin 875 mg tablet completed amoxicillin 875 MG Oral Tablet ROMAN ([facility]) Amoxicillin 875 MG Oral Tablet amoxicillin 875 mg tabl et amoxicillin 875 mg tablet completed amoxicillin 875 MG Oral Tablet ROMAN ([facility]) Metoclopramide 5 MG Oral Tablet metoclopramide 5 mg ta blet metoclopramide 5 mg tablet completed metoclopramide 5 MG Oral Tablet ROMAN ([facility]) Oxycodone Hydrochloride 5 MG Oral Tablet oxycodone 5 m g tablet oxycodone 5 mg tablet completed oxycodone hydro chloride 5 MG Oral Tablet ROMAN ([facility]) Metoclopramide 10 MG Oral Tablet metoclopramide 10 mg tablet metoclopramide 10 mg tablet completed metocloprami de 10 MG Oral Tablet BRYAN ([facility]) Amitriptyline Hydrochloride 10 MG Oral T ablet amitriptyline 10 mg tablet Take 2 tablets every day by oral route at bedtime. amitriptyline 10 mg tablet Take 2 tablets every day by oral route at bedtime. 2 completed amitriptyline hydrochloride 10 MG Oral Tablet BRYAN ([facility]) Omeprazole 20 MG Delayed Release Oral Ca psule omeprazole 20 mg capsule,delayed release TAKE ONE CAPSULE BY MOUTH TWICE A DAY omeprazole 20 mg capsule,delayed release TAKE ONE CAPSULE BY MOUTH TWICE A DAY completed omeprazole 20 MG Delayed Release Oral Capsule BRYAN ([facility]) Penicillin V Potassium 500 MG Oral Table t penicillin V potassium 500 mg tablet TAKE ONE TABLET BY MOUTH TWICE A DAY penicillin V potassium 500 mg tablet ELIAS E ONE TABLET BY MOUTH TWICE A DAY comple pau penicillin V potassium 500 MG Oral Tablet ROMAN ([facility]) 8 HR Acetaminophen 650 MG Extended Relea se Oral Tablet Pain Relief (acetaminophen) 650 mg tablet,extended release Pain Relief (acetaminophen) 650 mg tablet,extended release completed 8 HR acetaminophen 650 MG Extended Release Oral Tablet ROMAN ([facility]) insulin human, isophane 70 UNT/ML / Regu [...] regular, human 30 UNT/ML Injectable Suspension [Novolin] BRYAN ([facility]) Ondansetron 4 MG Oral Tablet ondansetron HCl 4 mg tabl et ondansetron HCl 4 mg tablet completed ondansetron 4 M G Oral Tablet BRYAN ([facility]) Acetaminophen 650 MG Oral Tablet acetami nophen 650 mg tablet Take 1 tablet 3 times a day by oral route. acetaminophen 650 mg tablet Take 1 table t 3 times a day by oral route. 1 completed sanjana taminophen 650 MG Oral Tablet BRYAN ([facility]) Basaglar KwikPen U-100 Insulin 10 units sc QHS completed Basaglar KwikPen U-100 Insulin BRYAN ([facility]) tramadol hydrochloride 50 MG Oral Tablet tramadol 50 mg tablet Take 1 tablet every 4 hours by oral route as needed. tramadol 50 mg tablet Take 1 tablet ever y 4 hours by oral route as needed. 1 comp leted tramadol hydrochloride 50 MG Oral Tablet ROMAN ([facility]) Metoclopramide 5 MG Oral Tablet metoclopramide 5 mg ta blet metoclopramide 5 mg tablet completed metoclopramide 5 MG Oral Tablet BRYAN ([facility]) Oxycodone Hydrochloride 5 MG Oral Tablet oxycodone 5 m g tablet oxycodone 5 mg tablet completed oxycodone hydro chloride 5 MG Oral Tablet BRYAN ([facility]) Amoxicillin 875 MG / Clavulanate 125 MG Oral Tablet amoxicillin 875 mg-potassium clavulanate 125 mg tablet TAKE ONE TABLET BY MOUTH EVERY 12 HOURS amoxicillin 875 mg-potassium clavulanate 125 mg tablet TAKE ONE TABLET BY MOUTH EVERY 12 HOURS completed amoxici llin 875 MG / clavulanate 125 MG Oral Tablet BRYAN ([facility]) Sucralfate 1000 MG Oral Tablet [Carafate ] Carafate 1 gram tablet Take 1 tablet twice a day by oral route as directed. Carafate 1 gram tablet Take 1 tablet twice a day by oral route as directed. 1 completed sucralfate 1000 MG Oral Tablet [Carafate] BRYAN ([facility]) Omeprazole 20 MG Delayed Release Oral Ca psule omeprazole 20 mg capsule,delayed release TAKE ONE CAPSULE BY MOUTH TWICE A DAY omeprazole 20 mg capsule,delayed release TAKE ONE CAPSULE BY MOUTH TWICE A DAY completed omeprazole 20 MG Delayed Release Oral Capsule BRYAN ([facility]) Sucralfate 1000 MG Oral Tablet [Carafate ] Carafate 1 gram tablet Take 1 tablet twice a day by oral route as directed. Carafate 1 gram tablet Take 1 tablet twice a day by oral route as directed. 1 completed sucralfate 1000 MG Oral Tablet [Carafate] BRYAN ([facility]) Oxycodone Hydrochloride 5 MG Oral Tablet oxycodone 5 m g tablet oxycodone 5 mg tablet completed oxycodone hydro chloride 5 MG Oral Tablet BRYAN ([facility]) insulin human, isophane 70 UNT/ML / Regu [...] regular, human 30 UNT/ML Injectable Suspension [Novolin] BRYAN ([facility]) Regular Insulin, Human 100 UNT/ML Inject able [...] 100 UNT/ML Injectable Solution [Humulin R] ROMAN ([facility]) Penicillin V Potassium 500 MG Oral Table t penicillin V potassium 500 mg tablet TAKE ONE TABLET BY MOUTH TWICE A DAY penicillin V potassium 500 mg tablet ELIAS E ONE TABLET BY MOUTH TWICE A DAY comple pau penicillin V potassium 500 MG Oral Tablet ROMAN ([facility]) Omeprazole 20 MG Delayed Release Oral Ca psule omeprazole 20 mg capsule,delayed release TAKE ONE CAPSULE BY MOUTH TWICE A DAY omeprazole 20 mg capsule,delayed release TAKE ONE CAPSULE BY MOUTH TWICE A DAY completed omeprazole 20 MG Delayed Release Oral Capsule ROMAN ([facility]) Ondansetron 4 MG Disintegrating Oral Tab let ondansetron 4 mg disintegrating tablet DISSOLVE ONE TABLET ON TONGUE EVERY 6 TO 8 HOURS NEEDED FOR NAUSEA AND VOMITING ondansetron 4 mg disintegrating tablet D ISSOLVE ONE TABLET ON TONGUE EVERY 6 TO 8 HOURS NEEDED FOR NAUSEA AND VOMITING completed ondansetron 4 MG Disintegrating Oral Tablet ROMAN ([facility]) Sucralfate 1000 MG Oral Tablet [Carafate ] Carafate 1 gram tablet Take 1 tablet twice a day by oral route as directed. Carafate 1 gram tablet Take 1 tablet twice a day by oral route as directed. 1 completed sucralfate 1000 MG Oral Tablet [Carafate] ROMAN ([facility]) Amoxicillin 875 MG Oral Tablet amoxicillin 875 mg tabl et amoxicillin 875 mg tablet completed amoxicillin 875 MG Oral Tablet BRYAN ([facility]) 8 HR Acetaminophen 650 MG Extended Relea se Oral Tablet Pain Relief (acetaminophen) 650 mg tablet,extended release Pain Relief (acetaminophen) 650 mg tablet,extended release completed 8 HR acetaminophen 650 MG Extended Release Oral Tablet ROMAN ([facility]) Docusate Sodium 100 MG Oral Capsule docu sate sodium 100 mg capsule Take 2 capsules every day by oral route as needed. docusate sodium 100 mg capsule Take 2 capsules every day by oral route as needed. 2 capsule(s) completed docusate sodium 100 MG Oral Capsule ATHVanessa ORDOÑEZ ([facility]) BD Ultra-Fine Short Pen Needle 31 gauge x 5/16" USE DIRECTED WITH AMANDA ONCE DAILY AT BEDTIME [id number] completed BD Ultra-Fine Short Pen Needle 31 gauge x 5/16" ROMAN ([facility]) BD Insulin Syringe Ultra-Fine 1 mL 31 gauge x 5/16" USE DIRECTED [id number] completed BD Insulin Syringe Ult ra-Fine 1 mL 31 gauge x 5/16" ROMAN ([facility]) Oxycodone Hydrochloride 5 MG Oral Tablet oxycodone 5 m g tablet oxycodone 5 mg tablet completed oxycodone hydro chloride 5 MG Oral Tablet ROMAN ([facility]) Insurance Providers Payer name Policy type / Coverage type Policy ID Covered constitution party ID Covered constitution party's relationship to manning Policy Manning Plan Information Medicaid S [id number] S [id number] [facility] P [id number] S [id number] Medicaid S [id number] [facility] P [id number] S [id number] [facility] P [id number] S [id number] [facility] PLAN [facility] [id number] SP [id number] SELF PAY ONLY [id number] SP [id number] SELF PAY UNAVAILABLE SP UNAVAILA BLE MEDICAID GME W [id number] S [id number] [facility] COMM PLAN FHP W [id number] S [id number] MEDICAID W UNAVAILABLE S UNAVAILA BLE SELF PAY P [id number] S P UNAVAILABLE UNAVAILA BLE [facility] PLAN [facility] [id number] SP [id number] BLUE [employer]OSS [employer] PLAN [id number] SP [id number] [facility] BLUE [id number] SP [id number] [facility] PLAN [facility] [id number] SP [id number] [facility]) O [id number] S [id number] MEDICAID [id number] SP [id number] [facility] P UNAVAILABLE S UNAVAILABLE Medicaid S [id number] S [id number] Problems, Conditions, and Diagnoses Code Display Name Description Problem Type Effective Dates Data Source(s) [id number] Chronic kidney disease stage 3A Chronic Kidney D isease Stage 3a Problem 10/31/2020 12:00:00 AM EDT ROMAN ([facility]) [id number] Cannabis abuse Cannabis Abuse Problem 10/31/2020 12:00: 00 AM EDT BRYAN ([facility]) [id number] Chronic kidney disease stage 3A Chronic Kidney D isease Stage 3a Problem 10/31/2020 12:00:00 AM EDT ROMAN ([facility]) [id number] Cannabis abuse Cannabis Abuse Problem 10/31/2020 12:00: 00 AM EDT ROMAN ([facility]) [id number] History of SARS-CoV-2 History of SARS-CoV-2 Prob chari 10/09/2020 12:00:00 AM EDT ROMAN ([facility]) [id number] History of SARS-CoV-2 History of SARS-CoV-2 Prob chari 10/09/2020 12:00:00 AM EDT ROMAN ([facility]) [id number] History of SARS-CoV-2 History of SARS-CoV-2 Prob chari 10/09/2020 12:00:00 AM EDT ROMAN ([facility]) [id number] Calorie restricted diet Calorie Restricted Diet Proble m 07/10/2020 12:00:00 AM EDT ROMAN ([facility]) [id number] Gastroparesis due to type 1 diabetes jonah litus Gastroparesis Due to Type 1 Diabetes Mellitus Problem 07/10/2020 12:00:00 AM EDT ROMAN ( [facility]) [id number] Gastroesophageal reflux disease Gastroesophageal Reflux Disease Problem 07/10/2020 12:00:00 AM EDT ROMAN ([facility]) [id number] Anemia of chronic disease Anemia of Chronic Disease Pr oblem 07/10/2020 12:00:00 AM EDT ROMAN ([facility]) [id number] Type 1 diabetes mellitus Type 1 Diabetes Mellitus Prob chari 07/10/2020 12:00:00 AM EDT ROMAN ([facility]) [id number] Calorie restricted diet Calorie Restricted Diet Proble m 07/10/2020 12:00:00 AM EDT ROMAN ([facility]) [id number] Gastroparesis due to type 1 diabetes jonah litus Gastroparesis Due to Type 1 Diabetes Mellitus Problem 07/10/2020 12:00:00 AM EDT ROMAN ( [facility]) [id number] Gastroesophageal reflux disease Gastroesophageal Reflux Disease Problem 07/10/2020 12:00:00 AM EDT ROMAN ([facility]) [id number] Anemia of chronic disease Anemia of Chronic Disease Pr oblem 07/10/2020 12:00:00 AM EDT ROMAN ([facility]) [id number] Type 1 diabetes mellitus Type 1 Diabetes Mellitus Prob chari 07/10/2020 12:00:00 AM EDT ROMAN ([facility]) [id number] Calorie restricted diet Calorie Restricted Diet Proble m 07/10/2020 12:00:00 AM EDT ROMAN ([facility]) [id number] Gastroparesis due to type 1 diabetes jonah litus Gastroparesis Due to Type 1 Diabetes Mellitus Problem 07/10/2020 12:00:00 AM EDT ROMAN ( [facility]) [id number] Gastroesophageal reflux disease Gastroesophageal Reflux Disease Problem 07/10/2020 12:00:00 AM EDT ROMAN ([facility]) [id number] Anemia of chronic disease Anemia of Chronic Disease Pr oblem 07/10/2020 12:00:00 AM EDT ROMAN ([facility]) [id number] Type 1 diabetes mellitus Type 1 Diabetes Mellitus Prob chari 07/10/2020 12:00:00 AM EDT ROMAN ([facility]) 32815155 Calorie restricted diet Calorie Restricted Diet Proble m 07/10/2020 12:00:00 AM EDT ROMAN ([facility]) [id number] Gastroparesis due to type 1 diabetes jonah litus Gastroparesis Due to Type 1 Diabetes Mellitus Problem 07/10/2020 12:00:00 AM EDT ROMAN ( [facility]) [id number] Gastroesophageal reflux disease Gastroesophageal Reflux Disease Problem 07/10/2020 12:00:00 AM EDT ROMAN ([facility]) [id number] Anemia of chronic disease Anemia of Chronic Disease Pr oblem 07/10/2020 12:00:00 AM EDT ROMAN ([facility]) [id number] Type 1 diabetes mellitus Type 1 Diabetes Mellitus Prob chari 07/10/2020 12:00:00 AM EDT ROMAN ([facility]) [id number] Calorie restricted diet Calorie Restricted Diet Proble m 07/10/2020 12:00:00 AM EDT ROMAN ([facility]) [id number] Gastroparesis due to type 1 diabetes jonah litus Gastroparesis Due to Type 1 Diabetes Mellitus Problem 07/10/2020 12:00:00 AM EDT ROMAN ( [facility]) [id number] Gastroesophageal reflux disease Gastroesophageal Reflux Disease Problem 07/10/2020 12:00:00 AM EDT ROMAN ([facility]) [id number] Anemia of chronic disease Anemia of Chronic Disease Pr oblem 07/10/2020 12:00:00 AM EDT ROMAN ([facility]) [id number] Type 1 diabetes mellitus Type 1 Diabetes Mellitus Prob chari 07/10/2020 12:00:00 AM EDT ROMAN ([facility]) [id number] Calorie restricted diet Calorie Restricted Diet Proble 07/10/2020 12:00:00 AM EDT ROMAN ([facility]) [id number] Gastroparesis due to type 1 diabetes jonah litus Gastroparesis Due to Type 1 Diabetes Mellitus Problem 07/10/2020 12:00:00 AM EDT ROMAN ( [facility]) [id number] Gastroesophageal reflux disease Gastroesophageal Reflux Disease Problem 07/10/2020 12:00:00 AM EDT ROMAN ([facility]) [id number] Anemia of chronic disease Anemia of Chronic Disease Pr oblem 07/10/2020 12:00:00 AM EDT ROMAN ([facility]) [id number] Type 1 diabetes mellitus Type 1 Diabetes Mellitus Prob chari 07/10/2020 12:00:00 AM EDT ROMAN ([facility]) [id number] Clinical finding Clinical Finding Problem 018 12:00:00 AM EDT - 07/10/2020 12:00:00 AM EDT ROMAN ([facility]) [id number] Clinical finding Clinical Finding Problem 018 12:00:00 AM EDT - 07/10/2020 12:00:00 AM EDT ROMAN ([facility]) [id number] Clinical finding Clinical Finding Problem 018 12:00:00 AM EDT - 07/10/2020 12:00:00 AM EDT ROMAN ([facility]) [id number] Clinical finding Clinical Finding Problem 018 12:00:00 AM EDT - 07/10/2020 12:00:00 AM EDT ROMAN ([facility]) [id number] Clinical finding Clinical Finding Problem 018 12:00:00 AM EDT - 07/10/2020 12:00:00 AM EDT ROMAN ([facility]) [id number] Clinical finding Clinical Finding Problem 018 12:00:00 AM EDT - 07/10/2020 12:00:00 AM EDT BRYAN ([facility]) Surgeries/Procedures No Information Results ID Date Data Source [id number] 10/23/2020 02:21:00 PM EDT [facility] Name Value Range Interpretation Code Description Data Kaye rce(s) Supporting Document(s) SARS-CoV-2 (COVID 19) NEGATIVE - SARS-CoV-2 (COVID19) [facility] This lab was ordered by [facility] a nd reported by [facility]. ID Date Data Source [id number] 10/13/2020 09:56:00 AM EDT [facility] Name Value Range Interpretation Code Description Data Kaye rce(s) Supporting Document(s) SARS coronavirus 2 RNA [Presence] in Res piratory specimen by SULY with probe detection NEGATIVE [facility] This lab was ordered by [facility] a nd reported by [facility]. ID Date Data Source [id number] 10/10/2020 10:19:00 AM EDT [facility]) Name Value Range Interpretation Code Description Data Kaye rce(s) Supporting Document(s) Hemoglobin A1c/Hemoglobin.total in Blood 9.2 %_of_total_HGB <5.7 Above high normal Hemoglobin a1C BRYAN ([facility]) ID Date Data Source [id number] 10/10/2020 10:19:00 AM EDT [facility]) Name Value Range Interpretation Code Description Data Kaye rce(s) Supporting Document(s) Troponin I.cardiac [Mass/volume] in Serum or Plasma 16 NG/L < or = 47 Troponin I ROMAN ([facility]) ID Date Data Source [id number] 10/10/2020 10:19:00 AM EDT ROMAN ([facility]) Name Value Range Interpretation Code Description Data Kaye rce(s) Supporting Document(s) Cholesterol [Mass/volume] in Serum or Plasma 214 mg/dL <200 Above high normal Cholesterol, Total ROMAN ([facility]) Cholesterol in HDL [Mass/volume] in Serum or Plasma 67 mg/dL > or = 50 HDL Cholesterol ROMAN ([facility]) Triglyceride [Mass/volume] in Serum or Plasma 59 mg/dL <150 Triglycerides ROMAN ([facility]) Cholesterol in LDL [Mass/volume] in Serum or Plasma by calculation 132 mg/dL_(calc) Above high normal LDL-cholesterol ROMAN ([facility]) Cholesterol.total/Cholesterol in HDL [Mass Ratio] in Serum o r Plasma 3.2 (calc) <5.0 Chol/hdlc Ratio ROMAN ([facility]) Cholesterol non HDL [Mass/volume] in Serum or Plasma 147 mg/dL_( calc) <130 Above high normal Non HDL Cholesterol ROMAN ([facility]) ID Date Data Source [id number] 10/10/2020 10:19:00 AM EDT [facility]) Name Value Range Interpretation Code Description Data Kaye rce(s) Supporting Document(s) Hemoglobin A1c/Hemoglobin.total in Blood 9.2 %_of_total_HGB <5.7 Above high normal Hemoglobin a1C ROMAN ([facility]) ID Date Data Source [id number] 10/10/2020 10[facility]19[facility] Name Value Range Interpretation Code Description Data Kaye rce(s) Supporting Document(s) Troponin I.cardiac [Mass/volume] in Serum or Plasma 16 NG/L < or = 47 Troponin I ROMAN ([facility]) ID Date Data Source [id number] 10/10/2020 10:19:00 AM EDT BRYAN ([facility]) Name Value Range Interpretation Code Description Data Kaye rce(s) Supporting Document(s) Cholesterol [Mass/volume] in Serum or Plasma 214 mg/dL <200 Above high normal Cholesterol, Total ROMAN ([facility]) Cholesterol in HDL [Mass/volume] in Serum or Plasma 67 mg/dL > or = 50 HDL Cholesterol ROMAN ([facility]) Triglyceride [Mass/volume] in Serum or Plasma 59 mg/dL <150 Triglycerides ROMAN ([facility]) Cholesterol in LDL [Mass/volume] in Serum or Plasma by calculation 132 mg/dL_(calc) Above high normal LDL-cholesterol ROMAN ([facility]) Cholesterol.total/Cholesterol in HDL [Mass Ratio] in Serum o r Plasma 3.2 (calc) <5.0 Chol/hdlc Ratio ROMAN ([facility]) Cholesterol non HDL [Mass/volume] in Serum or Plasma 147 mg/dL_( calc) <130 Above high normal Non HDL Cholesterol [facility]AN ([facility]) ID Date Data Source [id number] 09/16/2020 04:31:00 PM EDT [facility] Name Value Range Interpretation Code Description Data Kaye rce(s) Supporting Document(s) SARS coronavirus 2 RNA [Presence] in Res piratory specimen by SULY with probe detection POSITIVE [facility] This lab was ordered by [facility] a nd reported by [facility]. ID Date Data Source [id number] 07/02/2020 01:32:00 AM EDT [facility] Name Value Range Interpretation Code Description Data Kaye rce(s) Supporting Document(s) SARS coronavirus 2 RNA [Presence] in Res piratory specimen by SULY with probe detection NEGATIVE [facility] This lab was ordered by [facility] a nd reported by [facility]. ID Date Data Source [id number] 06/25/2020 04:56:00 PM EDT BRYAN ([facility]) Name Value Range Interpretation Code Description Data Kaye rce(s) Supporting Document(s) Hemoglobin A1c/Hemoglobin.total in Blood 8.0 % Hemoglobin a1C ROMAN ([facility]) estimated average glucose 183 mg/dL 60-110 Above high norm al Estimated Average Glucose BRYAN ([facility]) ID Date Data Source [id number] 06/25/2020 04:56:00 PM EDT [facility] ([facility] [facility]) Name Value Range Interpretation Code Description Data Kaye rce(s) Supporting Document(s) lipase 59 U/L 73-393 Below low normal Lipase ROMAN ( [facility]) ID Date Data Source [id number] 06/25/2020 04:56:00 PM EDT BRYAN ([facility]) Name Value Range Interpretation Code Description Data Kaye rce(s) Supporting Document(s) glucose, fasting 172 mg/dL 70-100 Above high normal Glucose, Fas ting ROMAN ([facility]) blood urea nitrogen 32 mg/dL 7-18 Above high normal Blood Ure a Nitrogen ROMAN ([facility]) creatinine for GFR 1.24 mg/dL 0.55-1.30 Creatinine for GF R ROMAN ([facility]) glomerular filtration rate >58 Glomerula r Filtration Rate ROMAN ([facility]) sodium level 133 mEq/L 136-145 Below low normal Sodium Level ATHE ([facility]) potassium serum 4.0 mEq/L 3.5-5.1 Potassium Serum ATHE NA ([facility]) chloride level 98 mEq/L 98-107 Chloride Level ROMAN ([facility]) carbon dioxide level 25 mEq/L 21-32 Carbon Dioxide Level ROMAN ([facility]) anion gap 10 mEq/L 8-16 Anion Gap ROMAN ([facility]) calcium level 9.3 mg/dL 8.5-10.1 Calcium Level BRYAN ( [facility]) ID Date Data Source [id number] 06/25/2020 04:56:00 PM EDT BRYAN ([facility]) Name Value Range Interpretation Code Description Data Kaye rce(s) Supporting Document(s) AST/SGOT 14 U/L 7-37 AST/SGOT ROMAN ([facility]) ALT/SGPT 15 U/L 12-78 ALT/SGPT ROMAN ([facility]) alkaline phosphatase 71 U/L 45-117 Alkaline Phosph atase ROMAN ([facility]) bilirubin,total 1.0 mg/dL 0.2-1.0 Bilirubin,total ATHE NA ([facility]) bilirubin,direct 0.3 mg/dL 0.0-0.2 Above high normal Bilirubin,di rect ROMAN ([facility]) total protein 7.6 gm/dL 6.4-8.2 Total Protein ROMAN ( [facility]) albumin 4.1 gm/dL 3.2-5.2 Albumin ROMAN ([facility]) albumin/globulin ratio 1.2-2.2 Albumin/globu gerard Ratio ROMAN ([facility]) ID Date Data Source [id number] 06/25/2020 04:56:00 PM EDT ROMAN ([facility]) Name Value Range Interpretation Code Description Data Kaye rce(s) Supporting Document(s) lactic acid sepsis protocol 1.4 mmol/L 0.4-2.0 Lactic A emmanuelle Sepsis Protocol ROMAN ([facility]) ID Date Data Source [id number] 06/25/2020 04:56:00 PM EDT ROMAN ([facility]) Name Value Range Interpretation Code Description Data Kaye rce(s) Supporting Document(s) white blood count 6.7 10 4.0-10.0 White Blood Count ROMAN ([facility]) red blood count 4.14 10 4.00-5.40 Red Blood Count ATHE NA ([facility]) hemoglobin 11.8 g/dL 12.0-15.5 Below low normal Hemoglobin ROMAN ( [facility]) hematocrit 35.6 % 36.0-47.0 Below low normal Hematocrit ROMAN ( [facility]) mean corpuscular volume 86.0 fL 80.0-96.0 Mean Corpusc ular Volume ROMAN ([facility]) mean corpuscular hemoglobin 28.5 pg 27.0-33.0 Mean Cor puscular Hemoglobin ROMAN ([facility]) mean corpuscular HGB conc 33.1 g/dL 32.0-36.5 Mean Corpu scular HGB Conc ROMAN ([facility]) red cell distribution width 15.1 % 11.5-14.5 Above high no rmal Red Cell Distribution Width ROMAN ([facility]) platelet count, automated 253 10 150-450 Platelet C ount, Automated ROMAN ([facility]) neutrophils % 72.6 % 36.0-66.0 Above high normal Neutrophils % A THENA ([facility]) lymph % 18.9 % 24.0-44.0 Below low normal Lymph % BRYAN ( [facility]) mono % 7.9 % 2.0-8.0 [place] % ROMAN ([facility]) eos % 0.1 % 0.0-3.0 Eos % ROMAN ([facility]) baso % 0.4 % 0.0-1.0 Baso % ROMAN ([facility]) immature granulocyte % 0.1 % 0-3.0 Immature Gran ulocyte % ROMAN ([facility]) nucleated red blood cell % 0.0 % 0-0 Nucleated Red Blood Cell % ROMAN ([facility]) neutrophils # 4.9 10 1.5-8.5 Neutrophils # ROMAN ( [facility]) lymph # 1.3 10 1.5-5.0 Below low normal Lymph # ROMAN ( [facility]) mono # 0.5 10 0.0-0.8 [place] # ROMAN ([facility]) eos # 0.0 10 0.0-0.5 Eos # ROMAN ([facility]) baso # 0.0 10 0.0-0.2 Baso # ROMAN ([facility]) ID Date Data Source [id number] 06/25/2020 04:56:00 PM EDT BRYAN ([facility]) Name Value Range Interpretation Code Description Data Kaye rce(s) Supporting Document(s) Hemoglobin A1c/Hemoglobin.total in Blood 8.0 % Hemoglobin a1C ROMAN ([facility]) estimated average glucose 183 mg/dL 60-110 Above high norm al Estimated Average Glucose BRYAN ([facility]) ID Date Data Source [id number] 06/25/2020 04:56:00 PM EDT ROMAN ([facility]) Name Value Range Interpretation Code Description Data Kaye rce(s) Supporting Document(s) lipase 59 U/L 73-393 Below low normal Lipase BRYAN ( [facility]) ID Date Data Source [id number] 06/25/2020 04:56:00 PM EDT BRYAN ([facility]) Name Value Range Interpretation Code Description Data Kaye rce(s) Supporting Document(s) glucose, fasting 172 mg/dL 70-100 Above high normal Glucose, Fas ting ROMAN ([facility]) blood urea nitrogen 32 mg/dL 7-18 Above high normal Blood Ure a Nitrogen ROMAN ([facility]) creatinine for GFR 1.24 mg/dL 0.55-1.30 Creatinine for GF R ROMAN ([facility]) glomerular filtration rate >58 Glomerula r Filtration Rate ROMAN ([facility]) sodium level 133 mEq/L 136-145 Below low normal Sodium Level ATHE NA ([facility]) potassium serum 4.0 mEq/L 3.5-5.1 Potassium Serum ATHE NA ([facility]) chloride level 98 mEq/L 98-107 Chloride Level ROMAN ([facility]) carbon dioxide level 25 mEq/L 21-32 Carbon Dioxide Level ROMAN ([facility]) anion gap 10 mEq/L 8-16 Anion Gap ROMAN ([facility]) calcium level 9.3 mg/dL 8.5-10.1 Calcium Level BRYAN ( [facility]) ID Date Data Source [id number] 06/25/2020 04:56:00 PM EDT ROMAN ([facility]) Name Value Range Interpretation Code Description Data Kaye rce(s) Supporting Document(s) AST/SGOT 14 U/L 7-37 AST/SGOT ROMAN ([facility]) ALT/SGPT 15 U/L 12-78 ALT/SGPT ROMAN ([facility]) alkaline phosphatase 71 U/L 45-117 Alkaline Phosph atase ROMAN ([facility]) bilirubin,total 1.0 mg/dL 0.2-1.0 Bilirubin,total ATHE NA ([facility]) bilirubin,direct 0.3 mg/dL 0.0-0.2 Above high normal Bilirubin,di rect ROMAN ([facility]) total protein 7.6 gm/dL 6.4-8.2 Total Protein ROMAN ( [facility]) albumin 4.1 gm/dL 3.2-5.2 Albumin ROMAN ([facility]) albumin/globulin ratio 1.2-2.2 Albumin/globu gerard Ratio ROMAN ([facility]) ID Date Data Source [id number] 06/25/2020 04:56:00 PM EDT ROMAN ([facility]) Name Value Range Interpretation Code Description Data Kaye rce(s) Supporting Document(s) lactic acid sepsis protocol 1.4 mmol/L 0.4-2.0 Lactic A emmanuelle Sepsis Protocol ROMAN ([facility]) ID Date Data Source [id number] 06/25/2020 04:56:00 PM EDT BRYAN ([facility]) Name Value Range Interpretation Code Description Data Kaye rce(s) Supporting Document(s) white blood count 6.7 10 4.0-10.0 White Blood Count ROMAN ([facility]) red blood count 4.14 10 4.00-5.40 Red Blood Count ATHE NA ([facility]) hemoglobin 11.8 g/dL 12.0-15.5 Below low normal Hemoglobin ROMAN ( [facility]) hematocrit 35.6 % 36.0-47.0 Below low normal Hematocrit ROMAN ( [facility]) mean corpuscular volume 86.0 fL 80.0-96.0 Mean Corpusc ular Volume ROMAN ([facility]) mean corpuscular hemoglobin 28.5 pg 27.0-33.0 Mean Cor puscular Hemoglobin ROMAN ([facility]) mean corpuscular HGB conc 33.1 g/dL 32.0-36.5 Mean Corpu scular HGB Conc ROMAN ([facility]) red cell distribution width 15.1 % 11.5-14.5 Above high no rmal Red Cell Distribution Width ROMAN ([facility]) platelet count, automated 253 10 150-450 Platelet C ount, Automated ROMAN ([facility]) neutrophils % 72.6 % 36.0-66.0 Above high normal Neutrophils % A THENA ([facility]) lymph % 18.9 % 24.0-44.0 Below low normal Lymph % ROMAN ( [facility]) mono % 7.9 % 2.0-8.0 [place] % ROMAN ([facility]) eos % 0.1 % 0.0-3.0 Eos % ROMAN ([facility]) baso % 0.4 % 0.0-1.0 Baso % ROMAN ([facility]) immature granulocyte % 0.1 % 0-3.0 Immature Gran ulocyte % ROMAN ([facility]) nucleated red blood cell % 0.0 % 0-0 Nucleated Red Blood Cell % ROMAN ([facility]) neutrophils # 4.9 10 1.5-8.5 Neutrophils # ROMAN ( [facility]) lymph # 1.3 10 1.5-5.0 Below low normal Lymph # ROMAN ( [facility]) mono # 0.5 10 0.0-0.8 [place] # ROMAN ([facility]) eos # 0.0 10 0.0-0.5 Eos # ROMAN ([facility]) baso # 0.0 10 0.0-0.2 Baso # ROMAN ([facility]) ID Date Data Source [id number] 06/25/2020 04:56:00 PM EDT [facility]) Name Value Range Interpretation Code Description Data Kaye rce(s) Supporting Document(s) Hemoglobin A1c/Hemoglobin.total in Blood 8.0 % Hemoglobin a1C BRYAN ([facility]) estimated average glucose 183 mg/dL 60-110 Above high norm al Estimated Average Glucose [facility]) ID Date Data Source [id number] 06/25/2020 04:56:00 PM EDT [facility]) Name Value Range Interpretation Code Description Data Kaye rce(s) Supporting Document(s) lipase 59 U/L 73-393 Below low normal Lipase [facility]) ID Date Data Source [id number] 06/25/2020 04:56:00 PM EDT [facility]) Name Value Range Interpretation Code Description Data Kaye rce(s) Supporting Document(s) glucose, fasting 172 mg/dL 70-100 Above high normal Glucose, Fas ting ROMAN ([facility]) blood urea nitrogen 32 mg/dL 7-18 Above high normal Blood Ure a Nitrogen ROMAN ([facility]) creatinine for GFR 1.24 mg/dL 0.55-1.30 Creatinine for GF R ROMAN ([facility]) glomerular filtration rate >58 Glomerula r Filtration Rate ROMAN ([facility]) sodium level 133 mEq/L 136-145 Below low normal Sodium Level ATHE NA ([facility]) potassium serum 4.0 mEq/L 3.5-5.1 Potassium Serum ATHE NA ([facility]) chloride level 98 mEq/L 98-107 Chloride Level ROMAN ([facility]) carbon dioxide level 25 mEq/L 21-32 Carbon Dioxide Level ROMAN ([facility]) anion gap 10 mEq/L 8-16 Anion Gap ROMAN ([facility]) calcium level 9.3 mg/dL 8.5-10.1 Calcium Level ROMAN ( [facility]) ID Date Data Source [id number] 06/25/2020 04:56:00 PM EDT ROMAN ([facility]) Name Value Range Interpretation Code Description Data Kaye rce(s) Supporting Document(s) AST/SGOT 14 U/L 7-37 AST/SGOT ROMAN ([facility]) ALT/SGPT 15 U/L 12-78 ALT/SGPT ROMAN ([facility]) alkaline phosphatase 71 U/L 45-117 Alkaline Phosph atase ROMAN ([facility]) bilirubin,total 1.0 mg/dL 0.2-1.0 Bilirubin,total ATHE ([facility]) bilirubin,direct 0.3 mg/dL 0.0-0.2 Above high normal Bilirubin,di rect ROMAN ([facility]) total protein 7.6 gm/dL 6.4-8.2 Total Protein ROMAN ( [facility]) albumin 4.1 gm/dL 3.2-5.2 Albumin ROMAN ([facility]) albumin/globulin ratio 1.2-2.2 Albumin/globu gerard Ratio ROMAN ([facility]) ID Date Data Source [id number] 06/25/2020 04:56:00 PM EDT ROMAN ([facility]) Name Value Range Interpretation Code Description Data Kaye rce(s) Supporting Document(s) lactic acid sepsis protocol 1.4 mmol/L 0.4-2.0 Lactic A emmanuelle Sepsis Protocol ROMAN ([facility]) ID Date Data Source [id number] 06/25/2020 04:56:00 PM EDT BRYAN ([facility]) Name Value Range Interpretation Code Description Data Kaye rce(s) Supporting Document(s) white blood count 6.7 10 4.0-10.0 White Blood Count ROMAN ([facility]) red blood count 4.14 10 4.00-5.40 Red Blood Count ATHE NA ([facility]) hemoglobin 11.8 g/dL 12.0-15.5 Below low normal Hemoglobin ROMAN ( [facility]) hematocrit 35.6 % 36.0-47.0 Below low normal Hematocrit ROMAN ( [facility]) mean corpuscular volume 86.0 fL 80.0-96.0 Mean Corpusc ular Volume ROMAN ([facility]) mean corpuscular hemoglobin 28.5 pg 27.0-33.0 Mean Cor puscular Hemoglobin ROMAN ([facility]) mean corpuscular HGB conc 33.1 g/dL 32.0-36.5 Mean Corpu scular HGB Conc ROMAN ([facility]) red cell distribution width 15.1 % 11.5-14.5 Above high no rmal Red Cell Distribution Width ROMAN ([facility]) platelet count, automated 253 10 150-450 Platelet C ount, Automated ROMAN ([facility]) neutrophils % 72.6 % 36.0-66.0 Above high normal Neutrophils % A THENA ([facility]) lymph % 18.9 % 24.0-44.0 Below low normal Lymph % ROMAN ( [facility]) mono % 7.9 % 2.0-8.0 [place] % ROMAN ([facility]) eos % 0.1 % 0.0-3.0 Eos % ROMAN ([facility]) baso % 0.4 % 0.0-1.0 Baso % ROMAN ([facility]) immature granulocyte % 0.1 % 0-3.0 Immature Gran ulocyte % ROMAN ([facility]) nucleated red blood cell % 0.0 % 0-0 Nucleated Red Blood Cell % ROMAN ([facility]) neutrophils # 4.9 10 1.5-8.5 Neutrophils # ROMAN ( [facility]) lymph # 1.3 10 1.5-5.0 Below low normal Lymph # ROMAN ( [facility]) mono # 0.5 10 0.0-0.8 [place] # ROMAN ([facility]) eos # 0.0 10 0.0-0.5 Eos # ROMAN ([facility]) baso # 0.0 10 0.0-0.2 Baso # ROMAN ([facility]) ID Date Data Source [id number] 06/25/2020 04:56:00 PM EDT BRYAN ([facility]) Name Value Range Interpretation Code Description Data Kaye rce(s) Supporting Document(s) Hemoglobin A1c/Hemoglobin.total in Blood 8.0 % Hemoglobin a1C BRYAN ([facility]) estimated average glucose 183 mg/dL 60-110 Above high norm al Estimated Average Glucose BRYAN ([facility]) ID Date Data Source [id number] 06/25/2020 04:56:00 PM EDT BRYAN ([facility]) Name Value Range Interpretation Code Description Data Kaye rce(s) Supporting Document(s) lipase 59 U/L 73-393 Below low normal Lipase BRYAN ( [facility]) ID Date Data Source [id number] 06/25/2020 04:56:00 PM EDT BRYAN ([facility]) Name Value Range Interpretation Code Description Data Kaye rce(s) Supporting Document(s) glucose, fasting 172 mg/dL 70-100 Above high normal Glucose, Fas ting ROMAN ([facility]) blood urea nitrogen 32 mg/dL 7-18 Above high normal Blood Ure a Nitrogen ROMAN ([facility]) creatinine for GFR 1.24 mg/dL 0.55-1.30 Creatinine for GF R ROMAN ([facility]) glomerular filtration rate >58 Glomerula r Filtration Rate ROMAN ([facility]) sodium level 133 mEq/L 136-145 Below low normal Sodium Level ATHE NA ([facility]) potassium serum 4.0 mEq/L 3.5-5.1 Potassium Serum ATHE NA ([facility]) chloride level 98 mEq/L 98-107 Chloride Level ROMAN ([facility]) carbon dioxide level 25 mEq/L 21-32 Carbon Dioxide Level ROMAN ([facility]) anion gap 10 mEq/L 8-16 Anion Gap ROMAN ([facility]) calcium level 9.3 mg/dL 8.5-10.1 Calcium Level ROMAN ( [facility]) ID Date Data Source [id number] 06/25/2020 04:56:00 PM EDT ROMAN ([facility]) Name Value Range Interpretation Code Description Data Kaye rce(s) Supporting Document(s) AST/SGOT 14 U/L 7-37 AST/SGOT ROMAN ([facility]) ALT/SGPT 15 U/L 12-78 ALT/SGPT ROMAN ([facility]) alkaline phosphatase 71 U/L 45-117 Alkaline Phosph atase ROMAN ([facility]) bilirubin,total 1.0 mg/dL 0.2-1.0 Bilirubin,total ATHE NA ([facility]) bilirubin,direct 0.3 mg/dL 0.0-0.2 Above high normal Bilirubin,di rect ROMAN ([facility]) total protein 7.6 gm/dL 6.4-8.2 Total Protein ROMAN ( [facility]) albumin 4.1 gm/dL 3.2-5.2 Albumin ROMAN ([facility]) albumin/globulin ratio 1.2-2.2 Albumin/globu gerard Ratio ROMAN ([facility]) ID Date Data Source [id number] 06/25/2020 04:56:00 PM EDT ROMAN ([facility]) Name Value Range Interpretation Code Description Data Kaye rce(s) Supporting Document(s) lactic acid sepsis protocol 1.4 mmol/L 0.4-2.0 Lactic A emmanuelle Sepsis Protocol ROMAN ([facility]) ID Date Data Source [id number] 06/25/2020 04:56:00 PM EDT ROMAN ([facility]) Name Value Range Interpretation Code Description Data Kaye rce(s) Supporting Document(s) white blood count 6.7 10 4.0-10.0 White Blood Count ROMAN ([facility]) red blood count 4.14 10 4.00-5.40 Red Blood Count ATHE NA ([facility]) hemoglobin 11.8 g/dL 12.0-15.5 Below low normal Hemoglobin ROMAN ( [facility]) hematocrit 35.6 % 36.0-47.0 Below low normal Hematocrit ROMAN ( [facility]) mean corpuscular volume 86.0 fL 80.0-96.0 Mean Corpusc ular Volume ROMAN ([facility]) mean corpuscular hemoglobin 28.5 pg 27.0-33.0 Mean Cor puscular Hemoglobin ROMAN ([facility]) mean corpuscular HGB conc 33.1 g/dL 32.0-36.5 Mean Corpu scular HGB Conc ROMAN ([facility]) red cell distribution width 15.1 % 11.5-14.5 Above high no rmal Red Cell Distribution Width ROMAN ([facility]) platelet count, automated 253 10 150-450 Platelet C ount, Automated ROMAN ([facility]) neutrophils % 72.6 % 36.0-66.0 Above high normal Neutrophils % A THENA ([facility]) lymph % 18.9 % 24.0-44.0 Below low normal Lymph % ROMAN ( [facility]) mono % 7.9 % 2.0-8.0 [place] % ROMAN ([facility]) eos % 0.1 % 0.0-3.0 Eos % ROMAN ([facility]) baso % 0.4 % 0.0-1.0 Baso % ROMAN ([facility]) immature granulocyte % 0.1 % 0-3.0 Immature Gran ulocyte % ROMAN ([facility]) nucleated red blood cell % 0.0 % 0-0 Nucleated Red Blood Cell % ROMAN ([facility]) neutrophils # 4.9 10 1.5-8.5 Neutrophils # ROMAN ( [facility]) lymph # 1.3 10 1.5-5.0 Below low normal Lymph # ROMAN ( [facility]) mono # 0.5 10 0.0-0.8 [place] # ROMAN ([facility]) eos # 0.0 10 0.0-0.5 Eos # ROMAN ([facility]) baso # 0.0 10 0.0-0.2 Baso # ROMAN ([facility]) ID Date Data Source [id number] 06/25/2020 04:56:00 PM EDT BRYAN ([facility]) Name Value Range Interpretation Code Description Data Kaye rce(s) Supporting Document(s) Hemoglobin A1c/Hemoglobin.total in Blood 8.0 % Hemoglobin a1C BRYAN ([facility]) estimated average glucose 183 mg/dL 60-110 Above high norm al Estimated Average Glucose BRYAN ([facility]) ID Date Data Source [id number] 06/25/2020 04:56:00 PM EDT BRYAN ([facility]) Name Value Range Interpretation Code Description Data Kaye rce(s) Supporting Document(s) lipase 59 U/L 73-393 Below low normal Lipase BRYAN ( [facility]) ID Date Data Source [id number] 06/25/2020 04:56:00 PM EDT BRYAN ([facility]) Name Value Range Interpretation Code Description Data Kaye rce(s) Supporting Document(s) glucose, fasting 172 mg/dL 70-100 Above high normal Glucose, Fas ting ROMAN ([facility]) blood urea nitrogen 32 mg/dL 7-18 Above high normal Blood Ure a Nitrogen ROMAN ([facility]) creatinine for GFR 1.24 mg/dL 0.55-1.30 Creatinine for GF R ROMAN ([facility]) glomerular filtration rate >58 Glomerula r Filtration Rate ROMAN ([facility]) sodium level 133 mEq/L 136-145 Below low normal Sodium Level ATHE NA ([facility]) potassium serum 4.0 mEq/L 3.5-5.1 Potassium Serum ATHE NA ([facility]) chloride level 98 mEq/L 98-107 Chloride Level ROMAN ([facility]) carbon dioxide level 25 mEq/L 21-32 Carbon Dioxide Level ROMAN ([facility]) anion gap 10 mEq/L 8-16 Anion Gap ORMAN ([facility]) calcium level 9.3 mg/dL 8.5-10.1 Calcium Level ROMAN ( [facility]) ID Date Data Source [id number] 06/25/2020 04:56:00 PM EDT ROMAN ([facility]) Name Value Range Interpretation Code Description Data Kaye rce(s) Supporting Document(s) AST/SGOT 14 U/L 7-37 AST/SGOT ROMAN ([facility]) ALT/SGPT 15 U/L 12-78 ALT/SGPT ROMAN ([facility]) alkaline phosphatase 71 U/L 45-117 Alkaline Phosph atase ROMAN ([facility]) bilirubin,total 1.0 mg/dL 0.2-1.0 Bilirubin,total ATHE NA ([facility]) bilirubin,direct 0.3 mg/dL 0.0-0.2 Above high normal Bilirubin,di rect ROMAN ([facility]) total protein 7.6 gm/dL 6.4-8.2 Total Protein ROMAN ( [facility]) albumin 4.1 gm/dL 3.2-5.2 Albumin ROMAN ([facility]) albumin/globulin ratio 1.2-2.2 Albumin/globu gerard Ratio ROMAN ([facility]) ID Date Data Source [id number] 06/25/2020 04:56:00 PM EDT ROMAN ([facility]) Name Value Range Interpretation Code Description Data Kaye rce(s) Supporting Document(s) lactic acid sepsis protocol 1.4 mmol/L 0.4-2.0 Lactic A emmanuelle Sepsis Protocol ROMAN ([facility]) ID Date Data Source [id number] 06/25/2020 04:56:00 PM EDT ROMAN ([facility]) Name Value Range Interpretation Code Description Data Kaye rce(s) Supporting Document(s) white blood count 6.7 10 4.0-10.0 White Blood Count ROMAN ([facility]) red blood count 4.14 10 4.00-5.40 Red Blood Count ATHE ([facility]) hemoglobin 11.8 g/dL 12.0-15.5 Below low normal Hemoglobin ROMAN ( [facility]) hematocrit 35.6 % 36.0-47.0 Below low normal Hematocrit ROMAN ( [facility]) mean corpuscular volume 86.0 fL 80.0-96.0 Mean Corpusc ular Volume ROMAN ([facility]) mean corpuscular hemoglobin 28.5 pg 27.0-33.0 Mean Cor puscular Hemoglobin ROMAN ([facility]) mean corpuscular HGB conc 33.1 g/dL 32.0-36.5 Mean Corpu scular HGB Conc ROMAN ([facility]) red cell distribution width 15.1 % 11.5-14.5 Above high no rmal Red Cell Distribution Width ROMAN ([facility]) platelet count, automated 253 10 150-450 Platelet C ount, Automated ROMAN ([facility]) neutrophils % 72.6 % 36.0-66.0 Above high normal Neutrophils % A THENA ([facility]) lymph % 18.9 % 24.0-44.0 Below low normal Lymph % ROMAN ( [facility]) mono % 7.9 % 2.0-8.0 [place] % ROMAN ([facility]) eos % 0.1 % 0.0-3.0 Eos % ROMAN ([facility]) baso % 0.4 % 0.0-1.0 Baso % ROMAN ([facility]) immature granulocyte % 0.1 % 0-3.0 Immature Gran ulocyte % ROMAN ([facility]) nucleated red blood cell % 0.0 % 0-0 Nucleated Red Blood Cell % ROMAN ([facility]) neutrophils # 4.9 10 1.5-8.5 Neutrophils # ROMAN ( [facility]) lymph # 1.3 10 1.5-5.0 Below low normal Lymph # ROMAN ( [facility]) mono # 0.5 10 0.0-0.8 [place] # ROMAN ([facility]) eos # 0.0 10 0.0-0.5 Eos # ROMAN ([facility]) baso # 0.0 10 0.0-0.2 Baso # ROMNA ([facility]) ID Date Data Source [id number] 06/25/2020 04:56:00 PM EDT BRYAN ([facility]) Name Value Range Interpretation Code Description Data Kaye rce(s) Supporting Document(s) Hemoglobin A1c/Hemoglobin.total in Blood 8.0 % Hemoglobin a1C BRYAN ([facility]) estimated average glucose 183 mg/dL 60-110 Above high norm al Estimated Average Glucose BRYAN ([facility]) ID Date Data Source [id number] 06/25/2020 04:56:00 PM EDT BRYAN ([facility]) Name Value Range Interpretation Code Description Data Kaye rce(s) Supporting Document(s) lipase 59 U/L 73-393 Below low normal Lipase BRYAN ( [facility]) ID Date Data Source [id number] 06/25/2020 04:56:00 PM EDT BRYAN ([facility]) Name Value Range Interpretation Code Description Data Kaye rce(s) Supporting Document(s) glucose, fasting 172 mg/dL 70-100 Above high normal Glucose, Fas ting ROMAN ([facility]) blood urea nitrogen 32 mg/dL 7-18 Above high normal Blood Ure a Nitrogen ROMAN ([facility]) creatinine for GFR 1.24 mg/dL 0.55-1.30 Creatinine for GF R BRYAN ([facility]) glomerular filtration rate >58 Glomerula r Filtration Rate ROMAN ([facility]) sodium level 133 mEq/L 136-145 Below low normal Sodium Level ATHE ([facility]) potassium serum 4.0 mEq/L 3.5-5.1 Potassium Serum ATHE NA ([facility]) chloride level 98 mEq/L 98-107 Chloride Level ROMAN ([facility]) carbon dioxide level 25 mEq/L 21-32 Carbon Dioxide Level ROMAN ([facility]) anion gap 10 mEq/L 8-16 Anion Gap ROMAN ([facility]) calcium level 9.3 mg/dL 8.5-10.1 Calcium Level ROMAN ( [facility]) ID Date Data Source [id number] 06/25/2020 04:56:00 PM EDT ROMAN ([facility]) Name Value Range Interpretation Code Description Data Kaye rce(s) Supporting Document(s) AST/SGOT 14 U/L 7-37 AST/SGOT ROMAN ([facility]) ALT/SGPT 15 U/L 12-78 ALT/SGPT ROMAN ([facility]) alkaline phosphatase 71 U/L 45-117 Alkaline Phosph atase ROMAN ([facility]) bilirubin,total 1.0 mg/dL 0.2-1.0 Bilirubin,total ATHE ([facility]) bilirubin,direct 0.3 mg/dL 0.0-0.2 Above high normal Bilirubin,di rect ROMAN ([facility]) total protein 7.6 gm/dL 6.4-8.2 Total Protein ROMAN ( [facility]) albumin 4.1 gm/dL 3.2-5.2 Albumin ROMAN ([facility]) albumin/globulin ratio 1.2-2.2 Albumin/globu gerard Ratio BRYAN ([facility]) ID Date Data Source [id number] 06/25/2020 04:56:00 PM EDT BRYAN ([facility]) Name Value Range Interpretation Code Description Data Kaye rce(s) Supporting Document(s) lactic acid sepsis protocol 1.4 mmol/L 0.4-2.0 Lactic A emmanuelle Sepsis Protocol ROMAN ([facility]) ID Date Data Source [id number] 06/25/2020 04:56:00 PM EDT ROMAN ([facility]) Name Value Range Interpretation Code Description Data Kaye rce(s) Supporting Document(s) white blood count 6.7 10 4.0-10.0 White Blood Count ROMAN ([facility]) red blood count 4.14 10 4.00-5.40 Red Blood Count ATHE ([facility]) hemoglobin 11.8 g/dL 12.0-15.5 Below low normal Hemoglobin ROMAN ( [facility]) hematocrit 35.6 % 36.0-47.0 Below low normal Hematocrit ROMAN ( [facility]) mean corpuscular volume 86.0 fL 80.0-96.0 Mean Corpusc ular Volume ROMAN ([facility]) mean corpuscular hemoglobin 28.5 pg 27.0-33.0 Mean Cor puscular Hemoglobin ROMAN ([facility]) mean corpuscular HGB conc 33.1 g/dL 32.0-36.5 Mean Corpu scular HGB Conc ROMAN ([facility]) red cell distribution width 15.1 % 11.5-14.5 Above high no rmal Red Cell Distribution Width ROMAN ([facility]) platelet count, automated 253 10 150-450 Platelet C ount, Automated ROMAN ([facility]) neutrophils % 72.6 % 36.0-66.0 Above high normal Neutrophils % A THENA ([facility]) lymph % 18.9 % 24.0-44.0 Below low normal Lymph % ROMAN ( [facility]) mono % 7.9 % 2.0-8.0 [place] % ROMAN ([facility]) eos % 0.1 % 0.0-3.0 Eos % ROMAN ([facility]) baso % 0.4 % 0.0-1.0 Baso % ROMAN ([facility]) immature granulocyte % 0.1 % 0-3.0 Immature Gran ulocyte % ROMAN ([facility]) nucleated red blood cell % 0.0 % 0-0 Nucleated Red Blood Cell % ROMAN ([facility]) neutrophils # 4.9 10 1.5-8.5 Neutrophils # ROMAN ( [facility]) lymph # 1.3 10 1.5-5.0 Below low normal Lymph # ROMAN ( [facility]) mono # 0.5 10 0.0-0.8 [place] # ROMAN ([facility]) eos # 0.0 10 0.0-0.5 Eos # ROMAN ([facility]) baso # 0.0 10 0.0-0.2 Baso # ROMAN ([facility]) ID Date Data Source [id number] 05/30/2020 02:18:00 PM EST ROMAN ([facility]) Name Value Range Interpretation Code Description Data Kaye rce(s) Supporting Document(s) bedside glucose 347 mg/dL 70-105 Above high normal Bedside Gluco se ROMAN ([facility]) ID Date Data Source [id number] 05/30/2020 02:18:00 PM EST ROMAN ([facility]) Name Value Range Interpretation Code Description Data Kaye rce(s) Supporting Document(s) bedside glucose 347 mg/dL 70-105 Above high normal Bedside Gluco se ROMAN ([facility]) ID Date Data Source [id number] 05/30/2020 02:18:00 PM EST ROMAN ([facility]) Name Value Range Interpretation Code Description Data Kaye rce(s) Supporting Document(s) bedside glucose 347 mg/dL 70-105 Above high normal Bedside Gluco se ROMAN ([facility]) ID Date Data Source [id number] 05/30/2020 02:18:00 PM EST ROMAN ([facility]) Name Value Range Interpretation Code Description Data Kaye rce(s) Supporting Document(s) bedside glucose 347 mg/dL 70-105 Above high normal Bedside Gluco se ROMAN ([facility]) ID Date Data Source [id number] 05/30/2020 02:18:00 PM EST ROMAN ([facility]) Name Value Range Interpretation Code Description Data Kaye rce(s) Supporting Document(s) bedside glucose 347 mg/dL 70-105 Above high normal Bedside Gluco se ROMAN ([facility]) ID Date Data Source [id number] 05/30/2020 02:18:00 PM EST ROMAN ([facility]) Name Value Range Interpretation Code Description Data Kaye rce(s) Supporting Document(s) bedside glucose 347 mg/dL 70-105 Above high normal [facility] Date Data Source [id number] 05/30/2020 09:45:00 AM EST ROMAN ([facility]) Name Value Range Interpretation Code Description Data Kaye rce(s) Supporting Document(s) bedside glucose 218 mg/dL 70-105 Above high normal Bedside Gluco se ROMAN ([facility]) ID Date Data Source [id number] 05/30/2020 09:45:00 AM EST [facility] Name Value Range Interpretation Code Description Data Kaye rce(s) Supporting Document(s) bedside glucose 218 mg/dL 70-105 Above high normal Bedside Gluco se ROMAN ([facility]) ID Date Data Source [id number] 05/30/2020 09:45:00 AM EST [facility] Name Value Range Interpretation Code Description Data Kaye rce(s) Supporting Document(s) bedside glucose 218 mg/dL 70-105 Above high normal [facility]side [facility]o [facility] ID Date Data Source [id number] 05/30/2020 09:45:00 AM EST ROMAN ([facility]) Name Value Range Interpretation Code Description Data Kaye rce(s) Supporting Document(s) bedside glucose 218 mg/dL 70-105 Above high normal Bedside Gluco se ROMAN ([facility]) ID Date Data Source [id number] 05/30/2020 09:45:00 AM EST ROMAN ([facility]) Name Value Range Interpretation Code Description Data Kaye rce(s) Supporting Document(s) bedside glucose 218 mg/dL 70-105 Above high normal Bedside Gluco se ROMAN ([facility]) ID Date Data Source [id number] 05/30/2020 09:45:00 AM EST ROMAN ([facility]) Name Value Range Interpretation Code Description Data Kaye rce(s) Supporting Document(s) bedside glucose 218 mg/dL 70-105 Above high normal Bedside Gluco se ROMAN ([facility]) ID Date Data Source [id number] 05/19/2020 05:04:00 PM EST ROMAN ([facility]) Name Value Range Interpretation Code Description Data Kaye rce(s) Supporting Document(s) bedside glucose 203 mg/dL 70-105 Above high normal Bedside Gluco se ROMAN ([facility]) ID Date Data Source [id number] 05/19/2020 05:04:00 PM EST ROMAN ([facility]) Name Value Range Interpretation Code Description Data Kaye rce(s) Supporting Document(s) bedside glucose 203 mg/dL 70-105 Above high normal [facility] ID Date Data Source [id number] 05/19/2020 05:04:00 PM EST ROMAN ([facility]) Name Value Range Interpretation Code Description Data Kaye rce(s) Supporting Document(s) bedside glucose 203 mg/dL 70-105 Above high normal Bedside Gluco se ROMAN ([facility]) ID Date Data Source [id number] 05/19/2020 05:04:00 PM EST ROMAN ([facility]) Name Value Range Interpretation Code Description Data Kaye rce(s) Supporting Document(s) bedside glucose 203 mg/dL 70-105 Above high normal Bedside Gluco se ROMAN ([facility]) ID Date Data Source [id number] 05/19/2020 05:04:00 PM EST ROMAN ([facility]) Name Value Range Interpretation Code Description Data Kaye rce(s) Supporting Document(s) bedside glucose 203 mg/dL 70-105 Above high normal Bedside Gluco se ROMAN ([facility]) ID Date Data Source [id number] 05/19/2020 05:04:00 PM EST ROMAN ([facility]) Name Value Range Interpretation Code Description Data Kaye rce(s) Supporting Document(s) bedside glucose 203 mg/dL 70-105 Above high normal Bedside Gluco se ROMAN ([facility]) ID Date Data Source [id number] 05/19/2020 03:32:00 PM EST ROMAN ([facility]) Name Value Range Interpretation Code Description Data Kaye rce(s) Supporting Document(s) istat lactate 0.4-2.0 Istat Lactate ROMAN ( [facility]) ID Date Data Source [id number] 05/19/2020 03:32:00 PM EST ROMAN ([facility]) Name Value Range Interpretation Code Description Data Kaye rce(s) Supporting Document(s) istat lactate 0.4-2.0 Istat Lactate BRYAN ( [facility]) ID Date Data Source [id number] 05/19/2020 03:32:00 PM EST ROMAN ([facility]) Name Value Range Interpretation Code Description Data Kyae rce(s) Supporting Document(s) istat lactate 0.4-2.0 Istat Lactate ROMAN ( [facility]) ID Date Data Source [id number] 05/19/2020 03:32:00 PM EST ROMAN ([facility]) Name Value Range Interpretation Code Description Data Kaye rce(s) Supporting Document(s) istat lactate 0.4-2.0 Istat Lactate ROMAN ( [facility]) ID Date Data Source [id number] 05/19/2020 03:32:00 PM EST ROMAN ([facility]) Name Value Range Interpretation Code Description Data Kaye rce(s) Supporting Document(s) istat lactate 0.4-2.0 Istat Lactate ROMAN ( [facility]) ID Date Data Source [id number] 05/19/2020 03:32:00 PM EST ROMAN ([facility]) Name Value Range Interpretation Code Description Data Kaye rce(s) Supporting Document(s) istat lactate 0.4-2.0 Istat Lactate ROMAN ( [facility]) ID Date Data Source [id number] 05/19/2020 03:12:00 PM EST ROMAN ([facility]) Name Value Range Interpretation Code Description Data Kaye rce(s) Supporting Document(s) istat troponin 0.00 NG/mL 0.00-0.08 Istat Troponin ROMAN ([facility]) ID Date Data Source [id number] 05/19/2020 03:12:00 PM EST ROMAN ([facility]) Name Value Range Interpretation Code Description Data Kaye rce(s) Supporting Document(s) bedside glucose 97 mg/dL 70-105 Bedside Glucose ATHE NA ([facility]) ID Date Data Source [id number] 05/19/2020 03:12:00 PM EST ROMAN ([facility]) Name Value Range Interpretation Code Description Data Kaye rce(s) Supporting Document(s) istat troponin 0.00 NG/mL 0.00-0.08 Istat Troponin ROMAN ([facility]) ID Date Data Source [id number] 05/19/2020 03:12:00 PM EST ROMAN ([facility]) Name Value Range Interpretation Code Description Data Kaye rce(s) Supporting Document(s) bedside glucose 97 mg/dL 70-105 Bedside Glucose ATHE NA ([facility]) ID Date Data Source [id number] 05/19/2020 03:12:00 PM EST ROMAN ([facility]) Name Value Range Interpretation Code Description Data Kaye rce(s) Supporting Document(s) istat troponin 0.00 NG/mL 0.00-0.08 Istat Troponin ROMAN ([facility]) ID Date Data Source [id number] 05/19/2020 03:12:00 PM EST ROMAN ([facility]) Name Value Range Interpretation Code Description Data Kaye rce(s) Supporting Document(s) bedside glucose 97 mg/dL 70-105 Bedside Glucose ATHE NA ([facility]) ID Date Data Source [id number] 05/19/2020 03:12:00 PM EST ROMAN ([facility]) Name Value Range Interpretation Code Description Data Kaye rce(s) Supporting Document(s) istat troponin 0.00 NG/mL 0.00-0.08 Istat Troponin ROMAN ([facility]) ID Date Data Source [id number] 05/19/2020 03:12:00 PM EST ROMAN ([facility]) Name Value Range Interpretation Code Description Data Kaye rce(s) Supporting Document(s) bedside glucose 97 mg/dL 70-105 Bedside Glucose ATHE NA ([facility]) ID Date Data Source [id number] 05/19/2020 03:12:00 PM EST ROMAN ([facility]) Name Value Range Interpretation Code Description Data Kaye rce(s) Supporting Document(s) istat troponin 0.00 NG/mL 0.00-0.08 Istat Troponin ROMAN ([facility]) ID Date Data Source [id number] 05/19/2020 03:12:00 PM EST ROMNA ([facility]) Name Value Range Interpretation Code Description Data Kaye rce(s) Supporting Document(s) bedside glucose 97 mg/dL 70-105 Bedside Glucose ATHE NA ([facility]) ID Date Data Source [id number] 05/19/2020 03:12:00 PM EST ROMAN ([facility]) Name Value Range Interpretation Code Description Data Kaye rce(s) Supporting Document(s) istat troponin 0.00 NG/mL 0.00-0.08 Istat Troponin ROMAN ([facility]) ID Date Data Source [id number] 05/19/2020 03:12:00 PM EST ROMAN ([facility]) Name Value Range Interpretation Code Description Data Kaye rce(s) Supporting Document(s) bedside glucose 97 mg/dL 70-105 Bedside Glucose ATHE NA ([facility]) ID Date Data Source [id number] 05/19/2020 01:33:00 PM EST ROMAN ([facility]) Name Value Range Interpretation Code Description Data Kaye rce(s) Supporting Document(s) bedside glucose 169 mg/dL 70-105 Above high normal Bedside Gluco se ROMAN ([facility]) ID Date Data Source [id number] 05/19/2020 01:33:00 PM EST ROMAN ([facility]) Name Value Range Interpretation Code Description Data Kaye rce(s) Supporting Document(s) bedside glucose 169 mg/dL 70-105 Above high normal Bedside Gluco se ROMAN ([facility]) ID Date Data Source [id number] 05/19/2020 01:33:00 PM EST ROMAN ([facility]) Name Value Range Interpretation Code Description Data Kaye rce(s) Supporting Document(s) bedside glucose 169 mg/dL 70-105 Above high normal Bedside Gluco se BRYAN ([facility]) ID Date Data Source [id number] 05/19/2020 01:33:00 PM EST ROMAN ([facility]) Name Value Range Interpretation Code Description Data Kaye rce(s) Supporting Document(s) bedside glucose 169 mg/dL 70-105 Above high normal Bedside Gluco se ROMAN ([facility]) ID Date Data Source [id number] 05/19/2020 01:33:00 PM EST ROMAN ([facility]) Name Value Range Interpretation Code Description Data Kaye rce(s) Supporting Document(s) bedside glucose 169 mg/dL 70-105 Above high normal Bedside Gluco se ROMAN ([facility]) ID Date Data Source [id number] 05/19/2020 01:33:00 PM EST ROMAN ([facility]) Name Value Range Interpretation Code Description Data Kaye rce(s) Supporting Document(s) bedside glucose 169 mg/dL 70-105 Above high normal [facility] ID Date Data Source [id number] 05/19/2020 12:48:00 PM EST ROMAN ([facility]) Name Value Range Interpretation Code Description Data Kaye rce(s) Supporting Document(s) amphetamines level urine negative negative Amphetamine s Level Urine ROMAN ([facility]) barbiturates urine negative negative Barbiturates Urin e ROMAN ([facility]) benzodiazepines urine negative negative Benzodiazepine s Urine ROMAN ([facility]) cannabinoids urine positive negative Above high normal Cannabinoi ds Urine ROMAN ([facility]) cocaine metabolite urine negative negative Cocaine Met abolite Urine ROMAN ([facility]) methadone urine negative negative Methadone Urine ATHE NA ([facility]) opiates urine negative negative Opiates Urine ROMAN ( [facility]) phencyclidine urine negative negative Phencyclidine Ur ine ROMAN ([facility]) ID Date Data Source [id number] 05/19/2020 12:48:00 PM EST ROMAN ([facility]) Name Value Range Interpretation Code Description Data Kaye rce(s) Supporting Document(s) appearance, urine rfx clear clear Appearance, Ur ine Rfx BRYAN ([facility]) color, urine rfx straw yellow Color, Urine Rfx AT TRAM ([facility]) pH,urine rfx 7.0 units 5.0-9.0 pH,urine Rfx ROMAN (No [facility]) specific gravity ur auto rfx 1.002-1.035 Specif ic [place] Ur Auto Rfx ROMAN ([facility]) protein, urine auto rfx negative negative Protein, Uri ne Auto Rfx ROMAN ([facility]) glucose, urine (UA) auto rfx 3+ negative Above high n ormal Glucose, Urine (UA) Auto Rfx ROMAN ([facility]) ketone, urine auto rfx negative negative Ketone, Urine Auto Rfx ROMAN ([facility]) urobilinogen, urine auto rfx 0.2 mg/dL 0.0-2.0 Urobili nogen, Urine Auto Rfx BRYAN ([facility]) bilirubin, urine auto rfx negative negative Bilirubin, Urine Auto Rfx ROMAN ([facility]) leukocyte esterase ur auto rfx negative negative Leukocyte Esterase Ur Auto Rfx ROMAN ([facility]) nitrite, urine auto rfx negative negative Nitrite, Uri ne Auto Rfx ROMAN ([facility]) blood, urine blood rfx negative negative Blood, Urine Blood Rfx ROMAN ([facility]) WBC, urine auto rfx 0 /hpf 0-3 WBC, Urine Auto Rfx ROMAN ([facility]) RBC, urine auto rfx 2 /hpf 0-3 RBC, Urine Auto Rfx ROMAN ([facility]) bacteria, urine auto rfx negative negative Bacteria, U rine Auto Rfx ROMAN ([facility]) squam epithelial cell ur aurfx 1 /hpf 0-6 Squam Epithelial Cell Ur Aurfx ROMAN ([facility]) hyaline cast, urine auto rfx 0 /lpf 0-1 Hyaline Cast, Urine Auto Rfx ROMAN ([facility]) ID Date Data Source [id number] 05/19/2020 12:48:00 PM EST ROMAN ([facility]) Name Value Range Interpretation Code Description Data Kaye rce(s) Supporting Document(s) amphetamines level urine negative negative Amphetamine s Level Urine ROMAN ([facility]) barbiturates urine negative negative Barbiturates Urin e ROMAN ([facility]) benzodiazepines urine negative negative Benzodiazepine s Urine ROMAN ([facility]) cannabinoids urine positive negative Above high normal Cannabinoi ds Urine ROMAN ([facility]) cocaine metabolite urine negative negative Cocaine Met abolite Urine ROMAN ([facility]) methadone urine negative negative Methadone Urine ATHE NA ([facility]) opiates urine negative negative Opiates Urine ROMAN ( [facility]) phencyclidine urine negative negative Phencyclidine Ur ine ROMAN ([facility]) ID Date Data Source [id number] 05/19/2020 12:48:00 PM EST ROMAN ([facility]) Name Value Range Interpretation Code Description Data Kaye rce(s) Supporting Document(s) appearance, urine rfx clear clear Appearance, Ur ine Rfx ROMAN ([facility]) color, urine rfx straw yellow Color, Urine Rfx AT TRAM ([facility]) pH,urine rfx 7.0 units 5.0-9.0 pH,urine [facility]fx [facility] specific gravity ur auto rfx 1.002-1.035 Specif ic [place] Ur Auto Rfx ROMAN ([facility]) protein, urine auto rfx negative negative Protein, Uri ne Auto Rfx BRYAN ([facility]) glucose, urine (UA) auto rfx 3+ negative Above high n ormal Glucose, Urine (UA) Auto Rfx BRYAN ([facility]) ketone, urine auto rfx negative negative Ketone, Urine Auto Rfx BRYAN ([facility]) urobilinogen, urine auto rfx 0.2 mg/dL 0.0-2.0 Urobili nogen, Urine Auto Rfx ROMAN ([facility]) bilirubin, urine auto rfx negative negative Bilirubin, Urine Auto Rfx BRYAN ([facility]) nitrite, urine auto rfx negative negative Nitrite, Uri ne Auto Rfx BRYAN ([facility]) leukocyte esterase ur auto rfx negative negative Leukocyte Esterase Ur Auto Rfx BRYAN ([facility]) blood, urine blood rfx negative negative Blood, Urine Blood Rfx BRYAN ([facility]) WBC, urine auto rfx 0 /hpf 0-3 WBC, Urine Auto Rfx ROMAN ([facility]) RBC, urine auto rfx 2 /hpf 0-3 RBC, Urine Auto Rfx ROMAN ([facility]) bacteria, urine auto rfx negative negative Bacteria, U rine Auto Rfx ROMAN ([facility]) squam epithelial cell ur aurfx 1 /hpf 0-6 Squam Epithelial Cell Ur Aurfx ROMAN ([facility]) hyaline cast, urine auto rfx 0 /lpf 0-1 Hyaline Cast, Urine Auto Rfx BRYAN ([facility]) ID Date Data Source [id number] 05/19/2020 12:48:00 PM EST ROMAN ([facility]) Name Value Range Interpretation Code Description Data Kaye rce(s) Supporting Document(s) amphetamines level urine negative negative Amphetamine s Level Urine ROMAN ([facility]) barbiturates urine negative negative Barbiturates Urin e ROMAN ([facility]) benzodiazepines urine negative negative Benzodiazepine s Urine ROMAN ([facility]) cannabinoids urine positive negative Above high normal Cannabinoi ds Urine ROMAN ([facility]) cocaine metabolite urine negative negative Cocaine Met abolite Urine ROMAN ([facility]) methadone urine negative negative Methadone Urine ATHE NA ([facility]) opiates urine negative negative Opiates Urine ROMAN ( [facility]) phencyclidine urine negative negative Phencyclidine Ur ine ROMAN ([facility]) ID Date Data Source [id number] 05/19/2020 12:48:00 PM EST ROAMN ([facility]) Name Value Range Interpretation Code Description Data Kaye rce(s) Supporting Document(s) appearance, urine rfx clear clear Appearance, Ur ine Rfx BRYAN ([facility]) color, urine rfx straw yellow Color, Urine Rfx AT TRAM ([facility]) pH,urine rfx 7.0 units 5.0-9.0 pH,urine Rfx ROMAN (No [facility]) specific gravity ur auto rfx 1.002-1.035 Specif ic Trinity Ur Auto Rfx ROMAN ([facility]) protein, urine auto rfx negative negative Protein, Uri ne Auto Rfx BRYAN ([facility]) glucose, urine (UA) auto rfx 3+ negative Above high n ormal Glucose, Urine (UA) Auto Rfx BRYAN ([facility]) ketone, urine auto rfx negative negative Ketone, Urine Auto Rfx BRYAN ([facility]) urobilinogen, urine auto rfx 0.2 mg/dL 0.0-2.0 Urobili nogen, Urine Auto Rfx BRYAN ([facility]) bilirubin, urine auto rfx negative negative Bilirubin, Urine Auto Rfx ROMAN ([facility]) nitrite, urine auto rfx negative negative Nitrite, Uri ne Auto Rfx ROMAN ([facility]) leukocyte esterase ur auto rfx negative negative Leukocyte Esterase Ur Auto Rfx ROMAN ([facility]) blood, urine blood rfx negative negative Blood, Urine Blood Rfx ROMAN ([facility]) WBC, urine auto rfx 0 /hpf 0-3 WBC, Urine Auto Rfx ROMAN ([facility]) RBC, urine auto rfx 2 /hpf 0-3 RBC, Urine Auto Rfx ROMAN ([facility]) bacteria, urine auto rfx negative negative Bacteria, U rine Auto Rfx ROMAN ([facility]) squam epithelial cell ur aurfx 1 /hpf 0-6 Squam Epithelial Cell Ur Aurfx ROMAN ([facility]) hyaline cast, urine auto rfx 0 /lpf 0-1 Hyaline Cast, Urine Auto Rfx ROMAN ([facility]) ID Date Data Source [id number] 05/19/2020 12:48:00 PM EST ROMAN ([facility]) Name Value Range Interpretation Code Description Data Kaye rce(s) Supporting Document(s) amphetamines level urine negative negative Amphetamine s Level Urine ROMAN ([facility]) barbiturates urine negative negative Barbiturates Urin e ROMAN ([facility]) benzodiazepines urine negative negative Benzodiazepine s Urine ROMAN ([facility]) cocaine metabolite urine negative negative Cocaine Met abolite Urine ROMAN ([facility]) cannabinoids urine positive negative Above high normal Cannabinoi ds Urine ROMAN ([facility]) methadone urine negative negative Methadone Urine ATHE NA ([facility]) opiates urine negative negative Opiates Urine ROMAN ( [facility]) phencyclidine urine negative negative Phencyclidine Ur ine ROMAN ([facility]) ID Date Data Source [id number] 05/19/2020 12:48:00 PM EST ROMAN ([facility]) Name Value Range Interpretation Code Description Data Kaye rce(s) Supporting Document(s) color, urine rfx straw yellow Color, Urine Rfx AT TRAM ([facility]) appearance, urine rfx clear clear Appearance, Ur ine Rfx ROMAN ([facility]) pH,urine rfx 7.0 units 5.0-9.0 pH,[facility] specific gravity ur auto rfx 1.002-1.035 Specif ic Trinity Ur Auto Rfx ROMAN ([facility]) protein, urine auto rfx negative negative Protein, Uri ne Auto Rfx BRYAN ([facility]) glucose, urine (UA) auto rfx 3+ negative Above high n ormal Glucose, Urine (UA) Auto Rfx BRYAN ([facility]) ketone, urine auto rfx negative negative Ketone, Urine Auto Rfx BRYAN ([facility]) urobilinogen, urine auto rfx 0.2 mg/dL 0.0-2.0 Urobili nogen, Urine Auto Rfx BRYAN ([facility]) bilirubin, urine auto rfx negative negative Bilirubin, Urine Auto Rfx ROMAN ([facility]) nitrite, urine auto rfx negative negative Nitrite, Uri ne Auto Rfx ROMAN ([facility]) leukocyte esterase ur auto rfx negative negative Leukocyte Esterase Ur Auto Rfx BRYAN ([facility]) blood, urine blood rfx negative negative Blood, Urine Blood Rfx BRYAN ([facility]) WBC, urine auto rfx 0 /hpf 0-3 WBC, Urine Auto Rfx ROMAN ([facility]) RBC, urine auto rfx 2 /hpf 0-3 RBC, Urine Auto Rfx ROMAN ([facility]) bacteria, urine auto rfx negative negative Bacteria, U rine Auto Rfx ROMAN ([facility]) squam epithelial cell ur aurfx 1 /hpf 0-6 Squam Epithelial Cell Ur Aurfx ROMAN ([facility]) hyaline cast, urine auto rfx 0 /lpf 0-1 Hyaline Cast, Urine Auto Rfx BRYAN ([facility]) ID Date Data Source [id number] 05/19/2020 12:48:00 PM EST ROMAN ([facility]) Name Value Range Interpretation Code Description Data Kaye rce(s) Supporting Document(s) amphetamines level urine negative negative Amphetamine s Level Urine ROMAN ([facility]) barbiturates urine negative negative Barbiturates Urin e ROMAN ([facility]) benzodiazepines urine negative negative Benzodiazepine s Urine ROMAN ([facility]) cannabinoids urine positive negative Above high normal Cannabinoi ds Urine ROMAN ([facility]) cocaine metabolite urine negative negative Cocaine Met abolite Urine ROMAN ([facility]) methadone urine negative negative Methadone Urine ATHE NA ([facility]) opiates urine negative negative Opiates Urine ROMAN ( [facility]) phencyclidine urine negative negative Phencyclidine Ur ine ROMAN ([facility]) ID Date Data Source [id number] 05/19/2020 12:48:00 PM EST ROMAN ([facility]) Name Value Range Interpretation Code Description Data Kaye rce(s) Supporting Document(s) appearance, urine rfx clear clear Appearance, Ur ine Rfx BRYAN ([facility]) color, urine rfx straw yellow Color, Urine Rfx AT TRAM ([facility]) pH,urine rfx 7.0 units 5.0-9.0 pH,urine Rfx ROMAN (No [facility]) specific gravity ur auto rfx 1.002-1.035 Specif ic [place] Ur Auto Rfx ROMAN ([facility]) protein, urine auto rfx negative negative Protein, Uri ne Auto Rfx BRYAN ([facility]) glucose, urine (UA) auto rfx 3+ negative Above high n ormal Glucose, Urine (UA) Auto Rfx ROMAN ([facility]) ketone, urine auto rfx negative negative Ketone, Urine Auto Rfx BRYAN ([facility]) urobilinogen, urine auto rfx 0.2 mg/dL 0.0-2.0 Urobili nogen, Urine Auto Rfx ROMAN ([facility]) bilirubin, urine auto rfx negative negative Bilirubin, Urine Auto Rfx ROMAN ([facility]) nitrite, urine auto rfx negative negative Nitrite, Uri ne Auto Rfx ROMAN ([facility]) leukocyte esterase ur auto rfx negative negative Leukocyte Esterase Ur Auto Rfx ROMAN ([facility]) blood, urine blood rfx negative negative Blood, Urine Blood Rfx ROMAN ([facility]) WBC, urine auto rfx 0 /hpf 0-3 WBC, Urine Auto Rfx ROMAN ([facility]) RBC, urine auto rfx 2 /hpf 0-3 RBC, Urine Auto Rfx ROMAN ([facility]) bacteria, urine auto rfx negative negative Bacteria, U rine Auto Rfx ROMAN ([facility]) squam epithelial cell ur aurfx 1 /hpf 0-6 Squam Epithelial Cell Ur Aurfx ROMAN ([facility]) hyaline cast, urine auto rfx 0 /lpf 0-1 Hyaline Cast, Urine Auto Rfx ROMAN ([facility]) ID Date Data Source [id number] 05/19/2020 12:48:00 PM EST ROMAN ([facility]) Name Value Range Interpretation Code Description Data Kaye rce(s) Supporting Document(s) amphetamines level urine negative negative Amphetamine s Level Urine ROMAN ([facility]) barbiturates urine negative negative Barbiturates Urin e ROMAN ([facility]) benzodiazepines urine negative negative Benzodiazepine s Urine ROMAN ([facility]) cannabinoids urine positive negative Above high normal Cannabinoi ds Urine ROMAN ([facility]) cocaine metabolite urine negative negative Cocaine Met abolite Urine ROMAN ([facility]) methadone urine negative negative Methadone Urine ATHE NA ([facility]) opiates urine negative negative Opiates Urine ROMAN ( [facility]) phencyclidine urine negative negative Phencyclidine Ur ine ROMAN ([facility]) ID Date Data Source [id number] 05/19/2020 12:48:00 PM EST ROMAN ([facility]) Name Value Range Interpretation Code Description Data Kaye rce(s) Supporting Document(s) appearance, urine rfx clear clear Appearance, Ur ine Rfx ROMAN ([facility]) color, urine rfx straw yellow Color, Urine Rfx AT TRAM ([facility]) pH,urine rfx 7.0 units 5.0-9.0 pH,urine Rfx ROMAN (No [facility]) specific gravity ur auto rfx 1.002-1.035 Specif ic [place] Ur Auto Rfx ROMAN ([facility]) protein, urine auto rfx negative negative Protein, Uri ne Auto Rfx BRYAN ([facility]) glucose, urine (UA) auto rfx 3+ negative Above high n ormal Glucose, Urine (UA) Auto Rfx BRYAN ([facility]) urobilinogen, urine auto rfx 0.2 mg/dL 0.0-2.0 Urobili nogen, Urine Auto Rfx BRYAN ([facility]) ketone, urine auto rfx negative negative Ketone, Urine Auto Rfx BRYAN ([facility]) bilirubin, urine auto rfx negative negative Bilirubin, Urine Auto Rfx ROMAN ([facility]) nitrite, urine auto rfx negative negative Nitrite, Uri ne Auto Rfx ROMAN ([facility]) leukocyte esterase ur auto rfx negative negative Leukocyte Esterase Ur Auto Rfx BRYAN ([facility]) blood, urine blood rfx negative negative Blood, Urine Blood Rfx BRYAN ([facility]) WBC, urine auto rfx 0 /hpf 0-3 WBC, Urine Auto Rfx ROMAN ([facility]) RBC, urine auto rfx 2 /hpf 0-3 RBC, Urine Auto Rfx ROMAN ([facility]) bacteria, urine auto rfx negative negative Bacteria, U rine Auto Rfx BRYAN ([facility]) squam epithelial cell ur aurfx 1 /hpf 0-6 Squam Epithelial Cell Ur Aurfx ROMAN ([facility]) hyaline cast, urine auto rfx 0 /lpf 0-1 Hyaline Cast, Urine Auto Rfx BRYAN ([facility]) ID Date Data Source [id number] 05/19/2020 12:35:00 PM EST ROMAN ([facility]) Name Value Range Interpretation Code Description Data Kaye rce(s) Supporting Document(s) bedside glucose 147 mg/dL 70-105 Above high normal Bedside Gluco se ROMAN ([facility]) ID Date Data Source [id number] 05/19/2020 12:35:00 PM EST ROMAN ([facility]) Name Value Range Interpretation Code Description Data Kaye rce(s) Supporting Document(s) bedside glucose 147 mg/dL 70-105 Above high normal Bedside Gluco se ROMAN ([facility]) ID Date Data Source [id number] 05/19/2020 12:35:00 PM EST ROMAN ([facility]) Name Value Range Interpretation Code Description Data Kaye rce(s) Supporting Document(s) bedside glucose 147 mg/dL 70-105 Above high normal Bedside Gluco se ROMAN ([facility]) ID Date Data Source [id number] 05/19[facility]2020 [facility] Name Value Range Interpretation Code Description Data Kaye rce(s) Supporting Document(s) bedside glucose 147 mg/dL 70-105 Above high normal Bedside Gluco se ROMAN ([facility]) ID Date Data Source [id number] 05/19/2020 12:35:00 PM EST ROMAN ([facility]) Name Value Range Interpretation Code Description Data Kaye rce(s) Supporting Document(s) bedside glucose 147 mg/dL 70-105 Above high normal [facility] ID Date Data Source [id number] 05/19/2020 12:35:00 PM [facility] Name Value Range Interpretation Code Description Data Kaye rce(s) Supporting Document(s) bedside glucose 147 mg/dL 70-105 Above high normal Bedside Gluco se ROMAN ([facility]) ID Date Data Source [id number] 05/19/2020 11:35:00 AM EST ROMAN ([facility]) Name Value Range Interpretation Code Description Data Kaye rce(s) Supporting Document(s) bedside glucose 132 mg/dL 70-105 Above high normal Bedside Gluco se ROMAN ([facility]) ID Date Data Source [id number] 05/19/2020 11:35:00 AM EST ROMAN ([facility]) Name Value Range Interpretation Code Description Data Kaye rce(s) Supporting Document(s) bedside glucose 132 mg/dL 70-105 Above high normal Bedside Gluco se ROMAN ([facility]) ID Date Data Source [id number] 05/19/2020 11:35:00 AM EST ROMAN ([facility]) Name Value Range Interpretation Code Description Data Kaye rce(s) Supporting Document(s) bedside glucose 132 mg/dL 70-105 Above high normal Bedside Gluco se ROMAN ([facility]) ID Date Data Source [id number] 05/19/2020 11:35:00 AM EST ROMAN ([facility]) Name Value Range Interpretation Code Description Data Kaye rce(s) Supporting Document(s) bedside glucose 132 mg/dL 70-105 Above high normal Bedside Gluco se ROMAN ([facility]) ID Date Data Source [id number] 05/19/2020 11:35:00 AM EST ROMAN ([facility]) Name Value Range Interpretation Code Description Data Kaye rce(s) Supporting Document(s) bedside glucose 132 mg/dL 70-105 Above high normal Bedside Gluco se ROMAN ([facility]) ID Date Data Source [id number] 05/19/2020 11:35:00 AM EST ROMAN ([facility]) Name Value Range Interpretation Code Description Data Kaye rce(s) Supporting Document(s) bedside glucose 132 mg/dL 70-105 Above high normal Bedside Gluco se ROMAN ([facility]) ID Date Data Source [id number] 05/19/2020 11:28:00 AM EST ROMAN [facility]) Name Value Range Interpretation Code Description Data Kaye rce(s) Supporting Document(s) ID Date Data Source [id number] 05/19/2020 11:28:00 AM EST ROMAN [facility]) Name Value Range Interpretation Code Description Data Kaye rce(s) Supporting Document(s) ID Date Data Source [id number] 05/19/2020 11:28:00 AM EST ROMAN [facility]) Name Value Range Interpretation Code Description Data Kaye rce(s) Supporting Document(s) ID Date Data Source [id number] 05/19/2020 11:28:00 AM EST ROMAN [facility]) Name Value Range Interpretation Code Description Data Kaye rce(s) Supporting Document(s) ID Date Data Source [id number] 05/19/2020 11:28:00 AM EST ROMAN [facility]) Name Value Range Interpretation Code Description Data Kaye rce(s) Supporting Document(s) ID Date Data Source [id number] 05/19/2020 11:28:00 AM EST ROMAN [facility]) Name Value Range Interpretation Code Description Data Kaye rce(s) Supporting Document(s) ID Date Data Source [id number] 05/19/2020 11:28:00 AM EST [facility] Name Value Range Interpretation Code Description Data Kaye rce(s) Supporting Document(s) SARS-CoV-2 (COVID 19) NEGATIVE - SARS-CoV-2 (COVID19) [facility] This lab was ordered by [facility] a nd reported by [facility]. ID Date Data Source [id number] 05/19/2020 11:17:00 AM EST BRYAN ([facility]) Name Value Range Interpretation Code Description Data Kaye rce(s) Supporting Document(s) istat pH 7.310 units 7.350-7.450 Below low normal Istat pH ROMAN ([facility]) istat pCO2 50.2 mmHg 35.0-45.0 Above high normal Istat pCO2 ROMAN ([facility]) istat pO2 107.0 mmHg 80-105 Above high normal Istat pO2 BRYAN ([facility]) istat TCO2 27.0 mmol/L 23.0-27.0 Istat TCO2 ROMAN ([facility]) istat HCO3 25.3 mmol/L 22.0-26.0 Istat HCO3 BRYAN ([facility]) istat base excess -1.0 mmol/L -2.0-3.0 Istat Base Excess ROMAN ([facility]) istat so2 98 % 95-98 Istat So2 BRYAN ([facility]) ID Date Data Source [id number] 05/19/2020 11:17:00 AM EST ROMAN ([facility]) Name Value Range Interpretation Code Description Data Kaye rce(s) Supporting Document(s) istat pH 7.310 units 7.350-7.450 Below low normal Istat pH ROMAN ([facility]) istat pCO2 50.2 mmHg 35.0-45.0 Above high normal Istat pCO2 ROMAN ([facility]) istat pO2 107.0 mmHg 80-105 Above high normal Istat pO2 ROMAN ([facility]) istat TCO2 27.0 mmol/L 23.0-27.0 Istat TCO2 ROMAN ([facility]) istat HCO3 25.3 mmol/L 22.0-26.0 Istat HCO3 ROMAN ([facility]) istat base excess -1.0 mmol/L -2.0-3.0 Istat Base Excess ROMAN ([facility]) istat so2 98 % 95-98 Istat So2 ROMAN ([facility]) ID Date Data Source [id number] 05/19/2020 11:17:00 AM EST ROMAN ([facility]) Name Value Range Interpretation Code Description Data Kaye rce(s) Supporting Document(s) istat pH 7.310 units 7.350-7.450 Below low normal Istat pH ROMAN ([facility]) istat pCO2 50.2 mmHg 35.0-45.0 Above high normal Istat pCO2 ROMAN ([facility]) istat pO2 107.0 mmHg 80-105 Above high normal Istat pO2 ROMAN ([facility]) istat TCO2 27.0 mmol/L 23.0-27.0 Istat TCO2 ROMAN ([facility]) istat HCO3 25.3 mmol/L 22.0-26.0 Istat HCO3 ROMAN ([facility]) istat base excess -1.0 mmol/L -2.0-3.0 Istat Base Excess ROMAN ([facility]) istat so2 98 % 95-98 Istat So2 ROMAN ([facility]) ID Date Data Source [id number] 05/19/2020 11:17:00 AM EST ROMAN ([facility]) Name Value Range Interpretation Code Description Data Kaye rce(s) Supporting Document(s) istat pH 7.310 units 7.350-7.450 Below low normal Istat pH ROMAN ([facility]) istat pCO2 50.2 mmHg 35.0-45.0 Above high normal Istat pCO2 ROMAN ([facility]) istat pO2 107.0 mmHg 80-105 Above high normal Istat pO2 ROMAN ([facility]) istat TCO2 27.0 mmol/L 23.0-27.0 Istat TCO2 ROMAN ([facility]) istat HCO3 25.3 mmol/L 22.0-26.0 Istat HCO3 ROMAN ([facility]) istat base excess -1.0 mmol/L -2.0-3.0 Istat Base Excess ROMAN ([facility]) istat so2 98 % 95-98 Istat So2 ROMAN ([facility]) ID Date Data Source [id number] 05/19/2020 11:17:00 AM EST ROMAN ([facility]) Name Value Range Interpretation Code Description Data Kaye rce(s) Supporting Document(s) istat pH 7.310 units 7.350-7.450 Below low normal Istat pH ROMAN ([facility]) istat pCO2 50.2 mmHg 35.0-45.0 Above high normal Istat pCO2 ROMAN ([facility]) istat pO2 107.0 mmHg 80-105 Above high normal Istat pO2 ROMAN ([facility]) istat TCO2 27.0 mmol/L 23.0-27.0 Istat TCO2 ROMAN ([facility]) istat HCO3 25.3 mmol/L 22.0-26.0 Istat HCO3 ROMAN ([facility]) istat base excess -1.0 mmol/L -2.0-3.0 Istat Base Excess ROMAN ([facility]) istat so2 98 % 95-98 Istat So2 ROMAN ([facility]) ID Date Data Source [id number] 05/19/2020 11:17:00 AM EST ROMAN ([facility]) Name Value Range Interpretation Code Description Data Kaye rce(s) Supporting Document(s) istat pH 7.310 units 7.350-7.450 Below low normal Istat pH ROMAN ([facility]) istat pCO2 50.2 mmHg 35.0-45.0 Above high normal Istat pCO2 ROMAN ([facility]) istat pO2 107.0 mmHg 80-105 Above high normal Istat pO2 ROMAN ([facility]) istat TCO2 27.0 mmol/L 23.0-27.0 Istat TCO2 ROMAN ([facility]) istat HCO3 25.3 mmol/L 22.0-26.0 Istat HCO3 ROMAN ([facility]) istat base excess -1.0 mmol/L -2.0-3.0 Istat Base Excess ROMAN ([facility]) istat so2 98 % 95-98 Istat So2 ROMAN ([facility]) ID Date Data Source [id number] 05/19/2020 11:06:00 AM EST BRYAN ([facility]) Name Value Range Interpretation Code Description Data Kaye rce(s) Supporting Document(s) ross covid antigen negative negative Ross Covid Anti gen BRYAN ([facility]) ID Date Data Source [id number] 05/19/2020 11:06:00 AM EST [facility]) Name Value Range Interpretation Code Description Data Kaye rce(s) Supporting Document(s) ross covid antigen negative negative Ross Covid Anti gen ROMAN ([facility]) ID Date Data Source [id number] 05/19/2020 11:06:00 AM EST BRYAN ([facility]) Name Value Range Interpretation Code Description Data Kaye rce(s) Supporting Document(s) ross covid antigen negative negative Ross Covid Anti gen BRYAN ([facility]) ID Date Data Source [id number] 05/19/2020 11:06:00 AM EST [facility]) Name Value Range Interpretation Code Description Data Kaye rce(s) Supporting Document(s) ross covid antigen negative negative Ross Covid Anti gen ROMAN ([facility]) ID Date Data Source [id number] 05/19/2020 11:06:00 AM EST ROMAN ([facility]) Name Value Range Interpretation Code Description Data Kaye rce(s) Supporting Document(s) ross covid antigen negative negative Ross Covid Anti gen ROMAN ([facility]) ID Date Data Source [id number] 05/19/2020 11:06:00 AM EST ROMAN ([facility]) Name Value Range Interpretation Code Description Data Kaye rce(s) Supporting Document(s) ross covid antigen negative negative Ross Covid Anti gen ROMAN ([facility]) ID Date Data Source [id number] 05/19/2020 11:06:00 AM EST [facility] Name Value Range Interpretation Code Description Data Kaye rce(s) Supporting Document(s) SARS COVID ANTIGEN NEGATIVE [facility] This lab was ordered by SERGIO merritt nd reported by [facility]. ID Date Data Source [id number] 05/19/2020 10:56:00 AM EST ROMAN ([facility]) Name Value Range Interpretation Code Description Data Kaye rce(s) Supporting Document(s) istat lactate 0.4-2.0 Above high normal Istat Lactate A [facility] ([facility]) ID Date Data Source [id number] 05/19/2020 10:56:00 AM EST ROMAN ([facility]) Name Value Range Interpretation Code Description Data Kaye rce(s) Supporting Document(s) istat lactate 0.4-2.0 Above high normal Istat Lactate A [facility] ([facility]) ID Date Data Source [id number] 05/19/2020 10:56:00 AM EST ROMAN ([facility]) Name Value Range Interpretation Code Description Data Kaye rce(s) Supporting Document(s) istat lactate 0.4-2.0 Above high normal Istat Lactate A [facility] ([facility]) ID Date Data Source [id number] 05/19/2020 10:56:00 AM EST ROMAN ([facility]) Name Value Range Interpretation Code Description Data Kaye rce(s) Supporting Document(s) istat lactate 0.4-2.0 Above high normal [facility]) ID Date Data Source [id number] 05/19/2020 10:56:00 AM EST ROMAN ([facility]) Name Value Range Interpretation Code Description Data Kaye rce(s) Supporting Document(s) istat lactate 0.4-2.0 Above high normal Istat Lactate A [facility] ([facility]) ID Date Data Source [id number] 05/19/2020 10:56:00 AM EST ROMAN ([facility]) Name Value Range Interpretation Code Description Data Kaye rce(s) Supporting Document(s) istat lactate 0.4-2.0 Above high normal [facility]) ID Date Data Source [id number] 05/19/2020 10:52:00 AM EST ROMAN ([facility]) Name Value Range Interpretation Code Description Data Kaye rce(s) Supporting Document(s) istat HCT 30.0 % 38.0-51.0 Below low normal Istat HCT ROMAN ( [facility]) istat glucose 252 mg/dL 70-105 Above high normal Istat Glucose A [facility] ([facility]) istat sodium 141 mEq/L 136-145 Istat Sodium ROMAN ([facility]) istat potassium 3.8 mEq/L 3.5-5.1 Istat Potassium ATHE NA ([facility]) istat Ca++ 5.3 mg/dL 4.5-5.3 Istat Ca++ ROMAN ([facility]) istat chloride 104 mEq/L 98-109 Istat Chloride ROMAN ([facility]) istat CO2 26.0 mm/L 23.0-27.0 Istat CO2 ROMAN ([facility]) istat BUN 18 mg/dL 8-26 Istat BUN ROMAN ([facility]) istat creatinine 1.1 mg/dL 0.6-1.3 Istat Creatinine AT [facility]) ID Date Data Source [id number] 05/19/2020 10:52:00 AM EST BRYAN ([facility]) Name Value Range Interpretation Code Description Data Kaye rce(s) Supporting Document(s) istat HCT 30.0 % 38.0-51.0 Below low normal Istat HCT ROMAN ( [facility]) istat glucose 252 mg/dL 70-105 Above high normal Istat Glucose A THE[facility] ([facility]) istat sodium 141 mEq/L 136-145 Istat Sodium ROMAN ([facility]) istat potassium 3.8 mEq/L 3.5-5.1 Istat Potassium ATHE NA ([facility]) istat Ca++ 5.3 mg/dL 4.5-5.3 Istat Ca++ ROMAN ([facility]) istat chloride 104 mEq/L 98-109 Istat Chloride ROMAN ([facility]) istat CO2 26.0 mm/L 23.0-27.0 Istat CO2 ROMAN ([facility]) istat BUN 18 mg/dL 8-26 Istat BUN ROMAN ([facility]) istat creatinine 1.1 mg/dL 0.6-1.3 Istat Creatinine AT [facility]) ID Date Data Source [id number] 05/19/2020 10:52:00 AM EST ROMAN ([facility]) Name Value Range Interpretation Code Description Data Kaye rce(s) Supporting Document(s) istat HCT 30.0 % 38.0-51.0 Below low normal Istat HCT ROMAN ( [facility]) istat glucose 252 mg/dL 70-105 Above high normal Istat Glucose A [facility] ([facility]) istat sodium 141 mEq/L 136-145 Istat Sodium ROMAN ([facility]) istat potassium 3.8 mEq/L 3.5-5.1 Istat Potassium ATHE NA ([facility]) istat Ca++ 5.3 mg/dL 4.5-5.3 Istat Ca++ ROMAN ([facility]) istat chloride 104 mEq/L 98-109 Istat Chloride BRYAN ([facility]) istat CO2 26.0 mm/L 23.0-27.0 Istat CO2 ROMAN ([facility]) istat BUN 18 mg/dL 8-26 Istat BUN ROMAN ([facility]) istat creatinine 1.1 mg/dL 0.6-1.3 Istat Creatinine AT [facility] ([facility]) ID Date Data Source [id number] 05/19/2020 10:52:00 AM EST ROMAN ([facility]) Name Value Range Interpretation Code Description Data Kaye rce(s) Supporting Document(s) istat HCT 30.0 % 38.0-51.0 Below low normal Istat HCT ROMAN ( [facility]) istat glucose 252 mg/dL 70-105 Above high normal Istat Glucose A [facility] ([facility]) istat sodium 141 mEq/L 136-145 Istat Sodium ROMAN ([facility]) istat potassium 3.8 mEq/L 3.5-5.1 Istat Potassium ATHE NA ([facility]) istat Ca++ 5.3 mg/dL 4.5-5.3 Istat Ca++ ROMAN ([facility]) istat chloride 104 mEq/L 98-109 Istat Chloride ROMAN ([facility]) istat CO2 26.0 mm/L 23.0-27.0 Istat CO2 ROMAN ([facility]) istat BUN 18 mg/dL 8-26 Istat BUN ROMAN ([facility]) istat creatinine 1.1 mg/dL 0.6-1.3 Istat Creatinine AT [facility]) ID Date Data Source [id number] 05/19/2020 10:52:00 AM EST BRYAN ([facility]) Name Value Range Interpretation Code Description Data Kaye rce(s) Supporting Document(s) istat HCT 30.0 % 38.0-51.0 Below low normal Istat HCT ROMAN ( [facility]) istat glucose 252 mg/dL 70-105 Above high normal Istat Glucose A THENA ([facility]) istat sodium 141 mEq/L 136-145 Istat Sodium ROMAN ([facility]) istat potassium 3.8 mEq/L 3.5-5.1 Istat Potassium ATHE NA ([facility]) istat Ca++ 5.3 mg/dL 4.5-5.3 Istat Ca++ ROMAN ([facility]) istat chloride 104 mEq/L 98-109 Istat Chloride ROMAN ([facility]) istat CO2 26.0 mm/L 23.0-27.0 Istat CO2 ROMAN ([facility]) istat BUN 18 mg/dL 8-26 Istat BUN ROMAN ([facility]) istat creatinine 1.1 mg/dL 0.6-1.3 Istat Creatinine AT [facility]) ID Date Data Source [id number] 05/19/2020 10:52:00 AM EST ROMAN ([facility]) Name Value Range Interpretation Code Description Data Kaye rce(s) Supporting Document(s) istat HCT 30.0 % 38.0-51.0 Below low normal Istat HCT ROMAN ( [facility]) istat glucose 252 mg/dL 70-105 Above high normal Istat Glucose A THENA ([facility]) istat sodium 141 mEq/L 136-145 Istat Sodium ROMAN (No [facility]) istat potassium 3.8 mEq/L 3.5-5.1 Istat Potassium ATHE NA ([facility]) istat Ca++ 5.3 mg/dL 4.5-5.3 Istat Ca++ ROMAN ([facility]) istat chloride 104 mEq/L 98-109 Istat Chloride ROMAN ([facility]) istat CO2 26.0 mm/L 23.0-27.0 Istat CO2 ROMAN ([facility]) istat BUN 18 mg/dL 8-26 Istat BUN ROMAN ([facility]) istat creatinine 1.1 mg/dL 0.6-1.3 Istat Creatinine AT [facility] ([facility]) ID Date Data Source [id number] 05/19/2020 10:51:00 AM EST ROMAN ([facility]) Name Value Range Interpretation Code Description Data Kaye rce(s) Supporting Document(s) lipase 97 U/L 73-393 Lipase ROMAN ([facility]) ID Date Data Source [id number] 05/19/2020 10:51:00 AM EST ROMAN ([facility]) Name Value Range Interpretation Code Description Data Kaye rce(s) Supporting Document(s) acetone/ketone 0.70 mg/dL <2.81 Acetone/ketone ROMAN ([facility]) ID Date Data Source [id number] 05/19/2020 10:51:00 AM EST ROMAN ([facility]) Name Value Range Interpretation Code Description Data Kaye rce(s) Supporting Document(s) glucose, fasting 258 mg/dL 70-100 Above high normal Glucose, Fas ting ROMAN ([facility]) blood urea nitrogen 18 mg/dL 7-18 Blood Urea Nitro gen ROMAN ([facility]) creatinine for GFR 1.29 mg/dL 0.55-1.30 Creatinine for GF R ROMAN ([facility]) glomerular filtration rate >58 Below low normal Beata merular Filtration Rate ROMAN ([facility]) sodium level 142 mEq/L 136-145 Sodium Level ROMAN (No [facility]) potassium serum 4.0 mEq/L 3.5-5.1 Potassium Serum ATHE NA ([facility]) chloride level 106 mEq/L 98-107 Chloride Level BRYAN ([facility]) carbon dioxide level 27 mEq/L 21-32 Carbon Dioxide Level ROMAN ([facility]) anion gap 9 mEq/L 8-16 Anion Gap ROMAN ([facility]) calcium level 9.3 mg/dL 8.5-10.1 Calcium Level BRYAN ( [facility]) ID Date Data Source [id number] 05/19/2020 10:51:00 AM EST ROMAN ([facility]) Name Value Range Interpretation Code Description Data Kaye rce(s) Supporting Document(s) AST/SGOT 12 U/L 7-37 AST/SGOT ROMAN ([facility]) ALT/SGPT 13 U/L 12-78 ALT/SGPT ROMAN ([facility]) alkaline phosphatase 66 U/L 45-117 Alkaline Phosph atase ROMAN ([facility]) bilirubin,total 0.3 mg/dL 0.2-1.0 Bilirubin,total ATHE ([facility]) bilirubin,direct 0.1 mg/dL 0.0-0.2 Bilirubin,direct AT TRAM [facility]) total protein 6.8 gm/dL 6.4-8.2 Total Protein ROMAN ( [facility]) albumin 3.7 gm/dL 3.2-5.2 Albumin ROMAN ([facility]) albumin/globulin ratio 1.2-2.2 Albumin/globu gerard Ratio ROMAN ([facility]) ID Date Data Source [id number] 05/19/2020 10:51:00 AM EST ROMAN ([facility]) Name Value Range Interpretation Code Description Data Kaye rce(s) Supporting Document(s) Hemoglobin A1c/Hemoglobin.total in Blood 8.7 % Hemoglobin a1C BRYAN ([facility]) estimated average glucose 203 mg/dL 60-110 Above high norm al Estimated Average Glucose BRYAN ([facility]) ID Date Data Source [id number] 05/19/2020 10:51:00 AM EST ROMAN ([facility]) Name Value Range Interpretation Code Description Data Kaye rce(s) Supporting Document(s) white blood count 6.8 10 4.0-10.0 White Blood Count BRYAN ([facility]) red blood count 3.21 10 4.00-5.40 Below low normal Red Blood Coun t BRYAN ([facility]) hemoglobin 8.9 g/dL 12.0-15.5 Below low normal Hemoglobin BRYAN ( [facility]) hematocrit 28.2 % 36.0-47.0 Below low normal Hematocrit BRYAN ( [facility]) mean corpuscular volume 87.9 fL 80.0-96.0 Mean Corpusc ular Volume BRYAN ([facility]) mean corpuscular hemoglobin 27.7 pg 27.0-33.0 Mean Cor puscular Hemoglobin ROMAN ([facility]) mean corpuscular HGB conc 31.6 g/dL 32.0-36.5 Below low oz l Mean Corpuscular HGB Conc ROMAN ([facility]) red cell distribution width 16.9 % 11.5-14.5 Above high no rmal Red Cell Distribution Width ROMAN ([facility]) platelet count, automated 261 10 150-450 Platelet C ount, Automated ROMAN ([facility]) neutrophils % 55.1 % 36.0-66.0 Neutrophils % ROMAN ( [facility]) lymph % 34.4 % 24.0-44.0 Lymph % ROMAN ([facility]) mono % 6.7 % 2.0-8.0 Above high normal [place] % ROMAN ([facility]) eos % 2.8 % 0.0-3.0 Eos % ROMAN ([facility]) baso % 0.7 % 0.0-1.0 Baso % BRYAN ([facility]) immature granulocyte % 0.3 % 0-3.0 Immature Gran ulocyte % ROMAN ([facility]) nucleated red blood cell % 0.0 % 0-0 Nucleated Red Blood Cell % ROMAN ([facility]) neutrophils # 3.8 10 1.5-8.5 Neutrophils # ROMAN ( [facility]) lymph # 2.4 10 1.5-5.0 Lymph # ROMAN ([facility]) mono # 0.5 10 0.0-0.8 [place] # ROMAN ([facility]) eos # 0.2 10 0.0-0.5 Eos # ROMAN ([facility]) baso # 0.1 10 0.0-0.2 Baso # ROMAN ([facility]) ID Date Data Source [id number] 05/19/2020 10:51:00 AM EST ROMAN ([facility]) Name Value Range Interpretation Code Description Data Kaye rce(s) Supporting Document(s) lipase 97 U/L 73-393 Lipase BRYAN ([facility]) ID Date Data Source [id number] 05/19/2020 10:51:00 AM EST ROMAN ([facility]) Name Value Range Interpretation Code Description Data Kaye rce(s) Supporting Document(s) acetone/ketone 0.70 mg/dL <2.81 Acetone/ketone ROMAN ([facility]) ID Date Data Source [id number] 05/19/2020 10:51:00 AM EST ROMAN ([facility]) Name Value Range Interpretation Code Description Data Kaye rce(s) Supporting Document(s) glucose, fasting 258 mg/dL 70-100 Above high normal Glucose, Fas ting ROMAN ([facility]) blood urea nitrogen 18 mg/dL 7-18 Blood Urea Nitro gen ROMAN ([facility]) creatinine for GFR 1.29 mg/dL 0.55-1.30 Creatinine for GF R ROMAN ([facility]) glomerular filtration rate >58 Below low normal Beata merular Filtration Rate ROMAN ([facility]) sodium level 142 mEq/L 136-145 Sodium Level BRYAN ([facility]) potassium serum 4.0 mEq/L 3.5-5.1 Potassium Serum ATHE NA ([facility]) chloride level 106 mEq/L 98-107 Chloride Level BRYAN ([facility]) carbon dioxide level 27 mEq/L 21-32 Carbon Dioxide Level BRYAN ([facility]) anion gap 9 mEq/L 8-16 Anion Gap BRYAN ([facility]) calcium level 9.3 mg/dL 8.5-10.1 Calcium Level BRYAN ( [facility]) ID Date Data Source [id number] 05/19/2020 10:51:00 AM EST BRYAN ([facility]) Name Value Range Interpretation Code Description Data Kaye rce(s) Supporting Document(s) AST/SGOT 12 U/L 7-37 AST/SGOT ROMAN ([facility]) ALT/SGPT 13 U/L 12-78 ALT/SGPT BRYAN ([facility]) alkaline phosphatase 66 U/L 45-117 Alkaline Phosph atase BRYAN ([facility]) bilirubin,total 0.3 mg/dL 0.2-1.0 [facility] bilirubin,direct 0.1 mg/dL 0.0-0.2 Bilirubin,direct AT TRAM [facility]) total protein 6.8 gm/dL 6.4-8.2 Total Protein ROMAN ( [facility]) albumin 3.7 gm/dL 3.2-5.2 Albumin ROMAN ([facility]) albumin/globulin ratio 1.2-2.2 Albumin/globu gerard Ratio ROMAN ([facility]) ID Date Data Source [id number] 05/19/2020 10:51:00 AM EST BRYAN ([facility]) Name Value Range Interpretation Code Description Data Kaye rce(s) Supporting Document(s) Hemoglobin A1c/Hemoglobin.total in Blood 8.7 % Hemoglobin a1C BRYAN ([facility]) estimated average glucose 203 mg/dL 60-110 Above high norm al Estimated Average Glucose [facility]) ID Date Data Source [id number] 05/19/2020 10:51:00 AM EST BRYAN ([facility]) Name Value Range Interpretation Code Description Data Kaye rce(s) Supporting Document(s) white blood count 6.8 10 4.0-10.0 White Blood Count BRYAN ([facility]) red blood count 3.21 10 4.00-5.40 Below low normal Red Blood Coun t ROMAN ([facility]) hemoglobin 8.9 g/dL 12.0-15.5 Below low normal Hemoglobin ROMAN ( [facility]) hematocrit 28.2 % 36.0-47.0 Below low normal Hematocrit ROMAN ( [facility]) mean corpuscular volume 87.9 fL 80.0-96.0 Mean Corpusc ular Volume BRYAN ([facility]) mean corpuscular hemoglobin 27.7 pg 27.0-33.0 Mean Cor puscular Hemoglobin ROMAN ([facility]) mean corpuscular HGB conc 31.6 g/dL 32.0-36.5 Below low oz l Mean Corpuscular HGB Conc ROMAN ([facility]) red cell distribution width 16.9 % 11.5-14.5 Above high no rmal Red Cell Distribution Width BRYAN ([facility]) platelet count, automated 261 10 150-450 Platelet C ount, Automated ROMAN ([facility]) neutrophils % 55.1 % 36.0-66.0 Neutrophils % ROMAN ( [facility]) lymph % 34.4 % 24.0-44.0 Lymph % ROMAN ([facility]) mono % 6.7 % 2.0-8.0 Above high normal [place] % ROMAN ([facility]) eos % 2.8 % 0.0-3.0 Eos % ROMAN ([facility]) baso % 0.7 % 0.0-1.0 Baso % BRYAN ([facility]) immature granulocyte % 0.3 % 0-3.0 Immature Gran ulocyte % ROMAN ([facility]) nucleated red blood cell % 0.0 % 0-0 Nucleated Red Blood Cell % BRYAN ([facility]) neutrophils # 3.8 10 1.5-8.5 Neutrophils # BRYAN ( [facility]) lymph # 2.4 10 1.5-5.0 Lymph # ROMAN ([facility]) mono # 0.5 10 0.0-0.8 [place] # ROMAN ([facility]) eos # 0.2 10 0.0-0.5 Eos # ROMAN ([facility]) baso # 0.1 10 0.0-0.2 Baso # ROMAN ([facility]) ID Date Data Source [id number] 05/19/2020 10:51:00 AM EST BRYAN ([facility]) Name Value Range Interpretation Code Description Data Kaye rce(s) Supporting Document(s) lipase 97 U/L 73-393 Lipase BRYAN ([facility]) ID Date Data Source [id number] 05/19/2020 10:51:00 AM EST BRYAN ([facility]) Name Value Range Interpretation Code Description Data Kaye rce(s) Supporting Document(s) acetone/ketone 0.70 mg/dL <2.81 Acetone/ketone ROMAN ([facility]) ID Date Data Source [id number] 05/19/2020 10:51:00 AM EST ROMAN ([facility]) Name Value Range Interpretation Code Description Data Kaye rce(s) Supporting Document(s) glucose, fasting 258 mg/dL 70-100 Above high normal Glucose, Fas ting ROMAN ([facility]) blood urea nitrogen 18 mg/dL 7-18 Blood Urea Nitro gen ROMAN ([facility]) creatinine for GFR 1.29 mg/dL 0.55-1.30 Creatinine for GF R ROMAN ([facility]) glomerular filtration rate >58 Below low normal Beata merular Filtration Rate ROMAN ([facility]) sodium level 142 mEq/L 136-145 Sodium Level ROMAN (No [facility]) potassium serum 4.0 mEq/L 3.5-5.1 Potassium Serum ATHE NA ([facility]) chloride level 106 mEq/L 98-107 Chloride Level BRYAN ([facility]) carbon dioxide level 27 mEq/L 21-32 Carbon Dioxide Level ROMAN ([facility]) anion gap 9 mEq/L 8-16 Anion Gap ROMAN ([facility]) calcium level 9.3 mg/dL 8.5-10.1 Calcium Level BRYAN ( [facility]) ID Date Data Source [id number] 05/19/2020 10:51:00 AM EST ROMAN ([facility]) Name Value Range Interpretation Code Description Data Kaye rce(s) Supporting Document(s) AST/SGOT 12 U/L 7-37 AST/SGOT ROMAN ([facility]) ALT/SGPT 13 U/L 12-78 ALT/SGPT ROMAN ([facility]) alkaline phosphatase 66 U/L 45-117 Alkaline Phosph atase BRYAN ([facility]) bilirubin,total 0.3 mg/dL 0.2-1.0 Bilirubin,total ATHE [facility]) bilirubin,direct 0.1 mg/dL 0.0-0.2 Bilirubin,direct AT TRAM [facility]) total protein 6.8 gm/dL 6.4-8.2 Total Protein ROMAN ( [facility]) albumin 3.7 gm/dL 3.2-5.2 Albumin ROMAN ([facility]) albumin/globulin ratio 1.2-2.2 Albumin/globu gerard Ratio ROMAN ([facility]) ID Date Data Source [id number] 05/19/2020 10:51:00 AM EST BRYAN ([facility]) Name Value Range Interpretation Code Description Data Kaye rce(s) Supporting Document(s) Hemoglobin A1c/Hemoglobin.total in Blood 8.7 % Hemoglobin a1C BRYAN ([facility]) estimated average glucose 203 mg/dL 60-110 Above high norm al Estimated Average Glucose BRYAN ([facility]) ID Date Data Source [id number] 05/19/2020 10:51:00 AM EST BRYAN ([facility]) Name Value Range Interpretation Code Description Data Kaye rce(s) Supporting Document(s) white blood count 6.8 10 4.0-10.0 White Blood Count BRYAN ([facility]) red blood count 3.21 10 4.00-5.40 Below low normal Red Blood Coun t ROMAN ([facility]) hemoglobin 8.9 g/dL 12.0-15.5 Below low normal Hemoglobin ROMAN ( [facility]) hematocrit 28.2 % 36.0-47.0 Below low normal Hematocrit ROMAN ( [facility]) mean corpuscular volume 87.9 fL 80.0-96.0 Mean Corpusc ular Volume ROMAN ([facility]) mean corpuscular hemoglobin 27.7 pg 27.0-33.0 Mean Cor puscular Hemoglobin ROMAN ([facility]) mean corpuscular HGB conc 31.6 g/dL 32.0-36.5 Below low oz l Mean Corpuscular HGB Conc ROMAN ([facility]) red cell distribution width 16.9 % 11.5-14.5 Above high no rmal Red Cell Distribution Width ROMAN ([facility]) platelet count, automated 261 10 150-450 Platelet C ount, Automated ROMAN ([facility]) neutrophils % 55.1 % 36.0-66.0 Neutrophils % ROMAN ( [facility]) lymph % 34.4 % 24.0-44.0 Lymph % ROMAN ([facility]) mono % 6.7 % 2.0-8.0 Above high normal [place] % ROMAN ([facility]) eos % 2.8 % 0.0-3.0 Eos % ROMAN ([facility]) baso % 0.7 % 0.0-1.0 Baso % BRYAN ([facility]) immature granulocyte % 0.3 % 0-3.0 Immature Gran ulocyte % BRYAN ([facility]) nucleated red blood cell % 0.0 % 0-0 Nucleated Red Blood Cell % BRYAN ([facility]) neutrophils # 3.8 10 1.5-8.5 Neutrophils # ROMAN ( [facility]) lymph # 2.4 10 1.5-5.0 Lymph # ROMAN ([facility]) mono # 0.5 10 0.0-0.8 [place] # ROMAN ([facility]) eos # 0.2 10 0.0-0.5 Eos # ROMAN ([facility]) baso # 0.1 10 0.0-0.2 Baso # ROMAN ([facility]) ID Date Data Source [id number] 05/19/2020 10:51:00 AM EST BRYAN ([facility]) Name Value Range Interpretation Code Description Data Kaye rce(s) Supporting Document(s) lipase 97 U/L 73-393 Lipase BRYAN ([facility]) ID Date Data Source [id number] 05/19/2020 10:51:00 AM EST ROMAN ([facility]) Name Value Range Interpretation Code Description Data Kaye rce(s) Supporting Document(s) acetone/ketone 0.70 mg/dL <2.81 Acetone/ketone ROMAN ([facility]) ID Date Data Source [id number] 05/19/2020 10:51:00 AM EST ROMAN ([facility]) Name Value Range Interpretation Code Description Data Kaye rce(s) Supporting Document(s) glucose, fasting 258 mg/dL 70-100 Above high normal Glucose, Fas ting ROMAN ([facility]) blood urea nitrogen 18 mg/dL 7-18 Blood Urea Nitro gen ROMAN ([facility]) creatinine for GFR 1.29 mg/dL 0.55-1.30 Creatinine for GF R ROMAN ([facility]) glomerular filtration rate >58 Below low normal Beata merular Filtration Rate ROMAN ([facility]) sodium level 142 mEq/L 136-145 Sodium Level ROMAN (No [facility]) potassium serum 4.0 mEq/L 3.5-5.1 Potassium Serum ATHE NA ([facility]) chloride level 106 mEq/L 98-107 Chloride Level ROMAN ([facility]) carbon dioxide level 27 mEq/L 21-32 Carbon Dioxide Level ROMAN ([facility]) anion gap 9 mEq/L 8-16 Anion Gap ROMAN ([facility]) calcium level 9.3 mg/dL 8.5-10.1 Calcium Level BRYAN ( [facility]) ID Date Data Source [id number] 05/19/2020 10:51:00 AM EST ROMAN ([facility]) Name Value Range Interpretation Code Description Data Kaye rce(s) Supporting Document(s) AST/SGOT 12 U/L 7-37 AST/SGOT ROMAN ([facility]) ALT/SGPT 13 U/L 12-78 ALT/SGPT ROMAN ([facility]) alkaline phosphatase 66 U/L 45-117 Alkaline Phosph atase ROMAN ([facility]) bilirubin,total 0.3 mg/dL 0.2-1.0 Bilirubin,total ATHE ([facility]) bilirubin,direct 0.1 mg/dL 0.0-0.2 Bilirubin,direct AT TRAM ([facility]) total protein 6.8 gm/dL 6.4-8.2 Total Protein ROMAN ( [facility]) albumin 3.7 gm/dL 3.2-5.2 Albumin ROMAN ([facility]) albumin/globulin ratio 1.2-2.2 Albumin/globu gerard Ratio ROMAN ([facility]) ID Date Data Source [id number] 05/19/2020 10:51:00 AM EST BRYAN ([facility]) Name Value Range Interpretation Code Description Data Kaye rce(s) Supporting Document(s) Hemoglobin A1c/Hemoglobin.total in Blood 8.7 % Hemoglobin a1C ROMAN ([facility]) estimated average glucose 203 mg/dL 60-110 Above high norm al Estimated Average Glucose [facility]) ID Date Data Source [id number] 05/19/2020 10:51:00 AM EST BRYAN ([facility]) Name Value Range Interpretation Code Description Data Kaye rce(s) Supporting Document(s) white blood count 6.8 10 4.0-10.0 White Blood Count BRYAN ([facility]) red blood count 3.21 10 4.00-5.40 Below low normal Red Blood Coun t ROMAN ([facility]) hemoglobin 8.9 g/dL 12.0-15.5 Below low normal Hemoglobin ROMAN ( [facility]) hematocrit 28.2 % 36.0-47.0 Below low normal Hematocrit ROMAN ( [facility]) mean corpuscular volume 87.9 fL 80.0-96.0 Mean Corpusc ular Volume ROMAN ([facility]) mean corpuscular hemoglobin 27.7 pg 27.0-33.0 Mean Cor puscular Hemoglobin ROMAN ([facility]) mean corpuscular HGB conc 31.6 g/dL 32.0-36.5 Below low oz l Mean Corpuscular HGB Conc ROMAN ([facility]) red cell distribution width 16.9 % 11.5-14.5 Above high no rmal Red Cell Distribution Width ROMAN ([facility]) platelet count, automated 261 10 150-450 Platelet C ount, Automated ROMAN ([facility]) neutrophils % 55.1 % 36.0-66.0 Neutrophils % ROMAN ( [facility]) lymph % 34.4 % 24.0-44.0 Lymph % ROMAN ([facility]) mono % 6.7 % 2.0-8.0 Above high normal [place] % ROMAN ([facility]) eos % 2.8 % 0.0-3.0 Eos % BRYAN ([facility]) baso % 0.7 % 0.0-1.0 Baso % BRYAN ([facility]) immature granulocyte % 0.3 % 0-3.0 Immature Gran ulocyte % BRYAN ([facility]) nucleated red blood cell % 0.0 % 0-0 Nucleated Red Blood Cell % ROMAN ([facility]) neutrophils # 3.8 10 1.5-8.5 Neutrophils # ROMAN ( [facility]) lymph # 2.4 10 1.5-5.0 Lymph # ROMAN ([facility]) mono # 0.5 10 0.0-0.8 [place] # ROMAN ([facility]) eos # 0.2 10 0.0-0.5 Eos # ROMAN ([facility]) baso # 0.1 10 0.0-0.2 Baso # ROMAN ([facility]) ID Date Data Source [id number] 05/19/2020 10:51:00 AM EST ROMAN ([facility]) Name Value Range Interpretation Code Description Data Kaye rce(s) Supporting Document(s) lipase 97 U/L 73-393 Lipase BRYAN ([facility]) ID Date Data Source [id number] 05/19/2020 10:51:00 AM EST ROMAN ([facility]) Name Value Range Interpretation Code Description Data Kaye rce(s) Supporting Document(s) acetone/ketone 0.70 mg/dL <2.81 Acetone/ketone ROMAN ([facility]) ID Date Data Source [id number] 05/19/2020 10:51:00 AM EST ROMAN ([facility]) Name Value Range Interpretation Code Description Data Kaye rce(s) Supporting Document(s) glucose, fasting 258 mg/dL 70-100 Above high normal Glucose, Fas ting ROMAN ([facility]) blood urea nitrogen 18 mg/dL 7-18 Blood Urea Nitro gen ROMAN ([facility]) creatinine for GFR 1.29 mg/dL 0.55-1.30 Creatinine for GF R ROMAN ([facility]) glomerular filtration rate >58 Below low normal Beata merular Filtration Rate ROMAN ([facility]) sodium level 142 mEq/L 136-145 Sodium Level ROMAN (No [facility]) potassium serum 4.0 mEq/L 3.5-5.1 Potassium Serum ATHE NA ([facility]) chloride level 106 mEq/L 98-107 Chloride Level BRYAN ([facility]) carbon dioxide level 27 mEq/L 21-32 Carbon Dioxide Level BRYAN ([facility]) anion gap 9 mEq/L 8-16 Anion Gap ROMAN ([facility]) calcium level 9.3 mg/dL 8.5-10.1 Calcium Level ROMAN ( [facility]) ID Date Data Source [id number] 05/19/2020 10:51:00 AM EST ROMAN ([facility]) Name Value Range Interpretation Code Description Data Kaye rce(s) Supporting Document(s) AST/SGOT 12 U/L 7-37 AST/SGOT ROMAN ([facility]) ALT/SGPT 13 U/L 12-78 ALT/SGPT ROMAN ([facility]) alkaline phosphatase 66 U/L 45-117 Alkaline Phosph atase ROMAN ([facility]) bilirubin,total 0.3 mg/dL 0.2-1.0 Bilirubin,total ATHE NA ([facility]) bilirubin,direct 0.1 mg/dL 0.0-0.2 Bilirubin,direct AT TRAM ([facility]) total protein 6.8 gm/dL 6.4-8.2 Total Protein ROMAN ( [facility]) albumin 3.7 gm/dL 3.2-5.2 Albumin ROMAN ([facility]) albumin/globulin ratio 1.2-2.2 Albumin/globu gerard Ratio ROMAN ([facility]) ID Date Data Source [id number] 05/19/2020 10:51:00 AM EST ROMAN ([facility]) Name Value Range Interpretation Code Description Data Kaye rce(s) Supporting Document(s) Hemoglobin A1c/Hemoglobin.total in Blood 8.7 % Hemoglobin a1C ROMAN ([facility]) estimated average glucose 203 mg/dL 60-110 Above high norm al Estimated Average Glucose [facility]) ID Date Data Source [id number] 05/19/2020 10:51:00 AM EST BRYAN ([facility]) Name Value Range Interpretation Code Description Data Kaye rce(s) Supporting Document(s) white blood count 6.8 10 4.0-10.0 White Blood Count ROMAN ([facility]) red blood count 3.21 10 4.00-5.40 Below low normal Red Blood Coun t ROMAN ([facility]) hemoglobin 8.9 g/dL 12.0-15.5 Below low normal Hemoglobin ROMAN ( [facility]) hematocrit 28.2 % 36.0-47.0 Below low normal Hematocrit ROMAN ( [facility]) mean corpuscular volume 87.9 fL 80.0-96.0 Mean Corpusc ular Volume ROMAN ([facility]) mean corpuscular hemoglobin 27.7 pg 27.0-33.0 Mean Cor puscular Hemoglobin ROMAN ([facility]) mean corpuscular HGB conc 31.6 g/dL 32.0-36.5 Below low oz l Mean Corpuscular HGB Conc BRYAN ([facility]) red cell distribution width 16.9 % 11.5-14.5 Above high no rmal Red Cell Distribution Width ROMAN ([facility]) platelet count, automated 261 10 150-450 Platelet C ount, Automated ROMAN ([facility]) neutrophils % 55.1 % 36.0-66.0 Neutrophils % ROMAN ( [facility]) lymph % 34.4 % 24.0-44.0 Lymph % ROMAN ([facility]) mono % 6.7 % 2.0-8.0 Above high normal [place] % ROMAN ([facility]) eos % 2.8 % 0.0-3.0 Eos % ROMAN ([facility]) baso % 0.7 % 0.0-1.0 Baso % BRYAN ([facility]) immature granulocyte % 0.3 % 0-3.0 Immature Gran ulocyte % ROMAN ([facility]) nucleated red blood cell % 0.0 % 0-0 Nucleated Red Blood Cell % ROMAN ([facility]) neutrophils # 3.8 10 1.5-8.5 Neutrophils # ROMAN ( [facility]) lymph # 2.4 10 1.5-5.0 Lymph # ROMAN ([facility]) mono # 0.5 10 0.0-0.8 [place] # ROMAN ([facility]) eos # 0.2 10 0.0-0.5 Eos # ROMAN ([facility]) baso # 0.1 10 0.0-0.2 Baso # ROMAN ([facility]) ID Date Data Source [id number] 05/19/2020 10:51:00 AM EST ROMAN ([facility]) Name Value Range Interpretation Code Description Data Kaye rce(s) Supporting Document(s) lipase 97 U/L 73-393 Lipase BRYAN ([facility]) ID Date Data Source [id number] 05/19/2020 10:51:00 AM EST ROMAN ([facility]) Name Value Range Interpretation Code Description Data Kaye rce(s) Supporting Document(s) acetone/ketone 0.70 mg/dL <2.81 Acetone/ketone ROMAN ([facility]) ID Date Data Source [id number] 05/19/2020 10:51:00 AM EST ROMAN ([facility]) Name Value Range Interpretation Code Description Data Kaye rce(s) Supporting Document(s) glucose, fasting 258 mg/dL 70-100 Above high normal Glucose, Fas ting ROMAN ([facility]) blood urea nitrogen 18 mg/dL 7-18 Blood Urea Nitro gen ROMAN ([facility]) creatinine for GFR 1.29 mg/dL 0.55-1.30 Creatinine for GF R ROMAN ([facility]) glomerular filtration rate >58 Below low normal Beata merular Filtration Rate ROMAN ([facility]) sodium level 142 mEq/L 136-145 Sodium Level ROMAN ([facility]) potassium serum 4.0 mEq/L 3.5-5.1 Potassium Serum ATHE NA ([facility]) chloride level 106 mEq/L 98-107 Chloride Level ROMAN ([facility]) carbon dioxide level 27 mEq/L 21-32 Carbon Dioxide Level ROMAN ([facility]) anion gap 9 mEq/L 8-16 Anion Gap ROMAN ([facility]) calcium level 9.3 mg/dL 8.5-10.1 Calcium Level ROAMN ( [facility]) ID Date Data Source [id number] 05/19/2020 10:51:00 AM EST ROMAN ([facility]) Name Value Range Interpretation Code Description Data Kaye rce(s) Supporting Document(s) AST/SGOT 12 U/L 7-37 AST/SGOT ROMAN ([facility]) ALT/SGPT 13 U/L 12-78 ALT/SGPT ROMAN ([facility]) alkaline phosphatase 66 U/L 45-117 Alkaline Phosph atase ROMAN ([facility]) bilirubin,total 0.3 mg/dL 0.2-1.0 Bilirubin,total ATHE NA ([facility]) bilirubin,direct 0.1 mg/dL 0.0-0.2 Bilirubin,direct AT TRAM ([facility]) total protein 6.8 gm/dL 6.4-8.2 Total Protein ROMAN ( [facility]) albumin 3.7 gm/dL 3.2-5.2 Albumin ROMAN ([facility]) albumin/globulin ratio 1.2-2.2 Albumin/globu gerard Ratio ROMAN ([facility]) ID Date Data Source [id number] 05/19/2020 10:51:00 AM EST ROMAN ([facility]) Name Value Range Interpretation Code Description Data Kaye rce(s) Supporting Document(s) Hemoglobin A1c/Hemoglobin.total in Blood 8.7 % Hemoglobin a1C ROMAN ([facility]) estimated average glucose 203 mg/dL 60-110 Above high norm al Estimated Average Glucose BRYAN ([facility]) ID Date Data Source [id number] 05/19/2020 10:51:00 AM EST BRYAN ([facility]) Name Value Range Interpretation Code Description Data Kaye rce(s) Supporting Document(s) white blood count 6.8 10 4.0-10.0 White Blood Count ROMAN ([facility]) red blood count 3.21 10 4.00-5.40 Below low normal Red Blood Coun t ROMAN ([facility]) hemoglobin 8.9 g/dL 12.0-15.5 Below low normal Hemoglobin BRYAN ( [facility]) hematocrit 28.2 % 36.0-47.0 Below low normal Hematocrit BRYAN ( [facility]) mean corpuscular volume 87.9 fL 80.0-96.0 Mean Corpusc ular Volume ROMAN ([facility]) mean corpuscular hemoglobin 27.7 pg 27.0-33.0 Mean Cor puscular Hemoglobin ROMAN ([facility]) mean corpuscular HGB conc 31.6 g/dL 32.0-36.5 Below low oz l Mean Corpuscular HGB Conc BRYAN ([facility]) red cell distribution width 16.9 % 11.5-14.5 Above high no rmal Red Cell Distribution Width ROMAN ([facility]) platelet count, automated 261 10 150-450 Platelet C ount, Automated ROMAN ([facility]) neutrophils % 55.1 % 36.0-66.0 Neutrophils % ROMAN ( [facility]) lymph % 34.4 % 24.0-44.0 Lymph % ROMAN ([facility]) mono % 6.7 % 2.0-8.0 Above high normal [place] % BRYAN ([facility]) eos % 2.8 % 0.0-3.0 Eos % BRYAN ([facility]) baso % 0.7 % 0.0-1.0 Baso % BRYAN ([facility]) immature granulocyte % 0.3 % 0-3.0 Immature Gran ulocyte % ROMAN ([facility]) nucleated red blood cell % 0.0 % 0-0 Nucleated Red Blood Cell % BRYAN ([facility]) neutrophils # 3.8 10 1.5-8.5 Neutrophils # ROMAN ( [facility]) lymph # 2.4 10 1.5-5.0 Lymph # ROMAN ([facility]) mono # 0.5 10 0.0-0.8 [place] # ROMAN ([facility]) eos # 0.2 10 0.0-0.5 Eos # ROMAN ([facility]) baso # 0.1 10 0.0-0.2 Baso # ROMAN ([facility]) ID Date Data Source [id number] 05/19/2020 10:35:00 AM EST ROMAN ([facility]) Name Value Range Interpretation Code Description Data Kaye rce(s) Supporting Document(s) bedside glucose 56 mg/dL 70-105 Below low normal Bedside Glucos e ROMAN ([facility]) ID Date Data Source [id number] 05/19/2020 10:35:00 AM EST ROMAN ([facility]) Name Value Range Interpretation Code Description Data Kaye rce(s) Supporting Document(s) bedside glucose 56 mg/dL 70-105 Below low normal Bedside Glucos e ROMAN ([facility]) ID Date Data Source [id number] 05/19/2020 10:35:00 AM EST ROMAN ([facility]) Name Value Range Interpretation Code Description Data Kaye rce(s) Supporting Document(s) bedside glucose 56 mg/dL 70-105 Below low normal Bedside Glucos e ROMAN ([facility]) ID Date Data Source [id number] 05/19/2020 10:35:00 AM EST ROMAN ([facility]) Name Value Range Interpretation Code Description Data Kaye rce(s) Supporting Document(s) bedside glucose 56 mg/dL 70-105 Below low normal Bedside Glucos e ROMAN ([facility]) ID Date Data Source [id number] 05/19/2020 10:35:00 AM EST ROMAN ([facility]) Name Value Range Interpretation Code Description Data Kaye rce(s) Supporting Document(s) bedside glucose 56 mg/dL 70-105 Below low normal Bedside Glucos e ROMAN ([facility]) ID Date Data Source [id number] 05/19/2020 10:35:00 AM EST ROMAN ([facility]) Name Value Range Interpretation Code Description Data Kaye rce(s) Supporting Document(s) bedside glucose 56 mg/dL 70-105 Below low normal Bedside Glucos e ROMAN ([facility]) ID Date Data Source [id number] 03/23/2020 09:53:00 AM EST ROMAN ([facility]) Name Value Range Interpretation Code Description Data Kaye rce(s) Supporting Document(s) bedside glucose 215 mg/dL 70-105 Above high normal Bedside Gluco se ROMAN ([facility]) ID Date Data Source [id number] 03/23/2020 09:53:00 AM EST ROMAN ([facility]) Name Value Range Interpretation Code Description Data Kaye rce(s) Supporting Document(s) bedside glucose 215 mg/dL 70-105 Above high normal Bedside Gluco se ROMAN ([facility]) ID Date Data Source [id number] 03/23/2020 09:53[facility] Name Value Range Interpretation Code Description Data Kaye rce(s) Supporting Document(s) bedside glucose 215 mg/dL 70-105 Above high normal [facility] ID Date Data Source [id number] 03/23/2020 09:53:00 AM EST [facility]) Name Value Range Interpretation Code Description Data Kaye rce(s) Supporting Document(s) bedside glucose 215 mg/dL 70-105 Above high normal [facility] ID Date Data Source [id number] 03/23/2020 09:53:00 AM EST ROMAN [facility]) Name Value Range Interpretation Code Description Data Kaye rce(s) Supporting Document(s) bedside glucose 215 mg/dL 70-105 Above high normal [facility] ID Date Data Source [id number] 03/23/2020 09:53:00 AM EST ROMAN [facility]) Name Value Range Interpretation Code Description Data Kaye rce(s) Supporting Document(s) bedside glucose 215 mg/dL 70-105 Above high normal [facility] ID Date Data Source [id number] 03/23/2020 06:02:00 AM EST ROMAN ([facility]) Name Value Range Interpretation Code Description Data Kaye rce(s) Supporting Document(s) acetone/ketone > 46.00 <2.81 Above high normal Acetone/ketone ROMAN ([facility]) ID Date Data Source [id number] 03/23/2020 06:02:00 AM EST ROMAN ([facility]) Name Value Range Interpretation Code Description Data Kaye rce(s) Supporting Document(s) glucose, fasting 297 mg/dL 70-100 Above high normal Glucose, Fas ting ROMAN ([facility]) blood urea nitrogen 8 mg/dL 7-18 Blood Urea Nitro gen ROMAN ([facility]) creatinine for GFR 1.16 mg/dL 0.55-1.30 Creatinine for GF R ROMAN ([facility]) glomerular filtration rate > 60.0 >58 Glomerula r Filtration Rate ROMAN ([facility]) sodium level 134 mEq/L 136-145 Below low normal Sodium Level ATHE ([facility]) potassium serum 4.1 mEq/L 3.5-5.1 Potassium Serum ATHE ([facility]) chloride level 103 mEq/L 98-107 Chloride Level ROMAN ([facility]) carbon dioxide level 19 mEq/L 21-32 Below low normal Carbon Di oxide Level ROMAN ([facility]) anion gap 12 mEq/L 8-16 Anion Gap ROMAN ([facility]) calcium level 8.5 mg/dL 8.5-10.1 Calcium Level ROMAN ( [facility]) AST/SGOT 13 U/L 7-37 AST/SGOT ROMAN ([facility]) ALT/SGPT 17 U/L 12-78 ALT/SGPT ROMAN ([facility]) alkaline phosphatase 57 U/L 45-117 Alkaline Phosph atase ROMAN ([facility]) bilirubin,total 0.4 mg/dL 0.2-1.0 Bilirubin,total ATHE ([facility]) total protein 6.2 gm/dL 6.4-8.2 Below low normal Total Protein AT [facility]) albumin 3.4 gm/dL 3.2-5.2 Albumin ROMAN ([facility]) albumin/globulin ratio 1.2-2.2 Albumin/globu gerard Ratio BRYAN ([facility]) ID Date Data Source [id number] 03/23/2020 06:02:00 AM EST BRYAN ([facility]) Name Value Range Interpretation Code Description Data Kaye rce(s) Supporting Document(s) white blood count 5.7 10 4.0-10.0 White Blood Count BRYAN ([facility]) red blood count 3.11 10 4.00-5.40 Below low normal Red Blood Coun t BRYAN ([facility]) hemoglobin 8.6 g/dL 12.0-15.5 Below low normal Hemoglobin BRYAN ( [facility]) hematocrit 26.3 % 36.0-47.0 Below low normal Hematocrit BRYAN ( [facility]) mean corpuscular volume 84.6 fL 80.0-96.0 Mean Corpusc ular Volume BRYAN ([facility]) mean corpuscular hemoglobin 27.7 pg 27.0-33.0 Mean Cor puscular Hemoglobin BRYAN ([facility]) mean corpuscular HGB conc 32.7 g/dL 32.0-36.5 Mean Corpu scular HGB Conc BRYAN ([facility]) red cell distribution width 15.5 % 11.5-14.5 Above high no rmal Red Cell Distribution Width BRYAN ([facility]) platelet count, automated 218 10 150-450 Platelet C ount, Automated ROMAN ([facility]) nucleated red blood cell % 0.0 % 0-0 Nucleated Red Blood Cell % BRYAN ([facility]) ID Date Data Source [id number] 03/23/2020 06:02:00 AM EST BRYAN ([facility]) Name Value Range Interpretation Code Description Data Kaye rce(s) Supporting Document(s) white blood count 5.7 10 4.0-10.0 White Blood Count BRYAN ([facility]) red blood count 3.11 10 4.00-5.40 Below low normal Red Blood Coun t ROMAN ([facility]) hemoglobin 8.6 g/dL 12.0-15.5 Below low normal Hemoglobin ROMAN ( [facility]) hematocrit 26.3 % 36.0-47.0 Below low normal Hematocrit ROMAN ( [facility]) mean corpuscular volume 84.6 fL 80.0-96.0 Mean Corpusc ular Volume BRYAN ([facility]) mean corpuscular hemoglobin 27.7 pg 27.0-33.0 Mean Cor puscular Hemoglobin BRYAN ([facility]) mean corpuscular HGB conc 32.7 g/dL 32.0-36.5 Mean Corpu scular HGB Conc BRYAN ([facility]) red cell distribution width 15.5 % 11.5-14.5 Above high no rmal Red Cell Distribution Width BRYAN ([facility]) platelet count, automated 218 10 150-450 Platelet C ount, Automated BRYAN ([facility]) nucleated red blood cell % 0.0 % 0-0 Nucleated Red Blood Cell % BRYAN ([facility]) ID Date Data Source [id number] 03/23/2020 06:02:00 AM EST BRYAN ([facility]) Name Value Range Interpretation Code Description Data Kaye rce(s) Supporting Document(s) acetone/ketone > 46.00 <2.81 Above high normal Acetone/ketone BRYAN ([facility]) ID Date Data Source [id number] 03/23/2020 06:02:00 AM EST BRYAN ([facility]) Name Value Range Interpretation Code Description Data Kaye rce(s) Supporting Document(s) glucose, fasting 297 mg/dL 70-100 Above high normal Glucose, Fas ting BRYAN ([facility]) blood urea nitrogen 8 mg/dL 7-18 Blood Urea Nitro gen BRYAN ([facility]) creatinine for GFR 1.16 mg/dL 0.55-1.30 Creatinine for GF R ROMAN ([facility]) sodium level 134 mEq/L 136-145 Below low normal Sodium Level ATHE NA ([facility]) glomerular filtration rate > 60.0 >58 Glomerula r Filtration Rate ROMAN ([facility]) potassium serum 4.1 mEq/L 3.5-5.1 Potassium Serum ATHE ([facility]) chloride level 103 mEq/L 98-107 Chloride Level ROMAN ([facility]) carbon dioxide level 19 mEq/L 21-32 Below low normal Carbon Di oxide Level ROMAN ([facility]) anion gap 12 mEq/L 8-16 Anion Gap ROMAN ([facility]) calcium level 8.5 mg/dL 8.5-10.1 Calcium Level ROMAN ( [facility]) AST/SGOT 13 U/L 7-37 AST/SGOT ROMAN ([facility]) ALT/SGPT 17 U/L 12-78 ALT/SGPT ROMAN ([facility]) alkaline phosphatase 57 U/L 45-117 Alkaline Phosph atase ROMAN ([facility]) bilirubin,total 0.4 mg/dL 0.2-1.0 Bilirubin,total ATHE ([facility]) total protein 6.2 gm/dL 6.4-8.2 Below low normal Total Protein AT TRAM ([facility]) albumin 3.4 gm/dL 3.2-5.2 Albumin ROMAN ([facility]) albumin/globulin ratio 1.2-2.2 Albumin/globu gerard Ratio BRYAN ([facility]) ID Date Data Source [id number] 03/23/2020 06:02:00 AM EST BRYAN ([facility]) Name Value Range Interpretation Code Description Data Kaye rce(s) Supporting Document(s) white blood count 5.7 10 4.0-10.0 White Blood Count ROMAN ([facility]) red blood count 3.11 10 4.00-5.40 Below low normal Red Blood Coun t ROMAN ([facility]) hemoglobin 8.6 g/dL 12.0-15.5 Below low normal Hemoglobin ROMAN ( [facility]) hematocrit 26.3 % 36.0-47.0 Below low normal Hematocrit BRYAN ( [facility]) mean corpuscular volume 84.6 fL 80.0-96.0 Mean Corpusc ular Volume ROMAN ([facility]) mean corpuscular hemoglobin 27.7 pg 27.0-33.0 Mean Cor puscular Hemoglobin ROMAN ([facility]) mean corpuscular HGB conc 32.7 g/dL 32.0-36.5 Mean Corpu scular HGB Conc BRYAN ([facility]) red cell distribution width 15.5 % 11.5-14.5 Above high no rmal Red Cell Distribution Width BRYAN ([facility]) platelet count, automated 218 10 150-450 Platelet C ount, Automated ROMAN ([facility]) nucleated red blood cell % 0.0 % 0-0 Nucleated Red Blood Cell % BRYAN ([facility]) ID Date Data Source [id number] 03/23/2020 06:02:00 AM EST BRYAN ([facility]) Name Value Range Interpretation Code Description Data Kaye rce(s) Supporting Document(s) acetone/ketone > 46.00 <2.81 Above high normal Acetone/ketone BRYAN ([facility]) ID Date Data Source [id number] 03/23/2020 06:02:00 AM EST BRYAN ([facility]) Name Value Range Interpretation Code Description Data Kaye rce(s) Supporting Document(s) glucose, fasting 297 mg/dL 70-100 Above high normal Glucose, Fas ting BRYAN ([facility]) blood urea nitrogen 8 mg/dL 7-18 Blood Urea Nitro gen ROMAN ([facility]) creatinine for GFR 1.16 mg/dL 0.55-1.30 Creatinine for GF R ROMAN ([facility]) glomerular filtration rate > 60.0 >58 Glomerula r Filtration Rate BRYAN ([facility]) sodium level 134 mEq/L 136-145 Below low normal Sodium Level ATHE NA ([facility]) potassium serum 4.1 mEq/L 3.5-5.1 Potassium Serum ATHE NA ([facility]) chloride level 103 mEq/L 98-107 Chloride Level ROMAN ([facility]) carbon dioxide level 19 mEq/L 21-32 Below low normal Carbon Di oxide Level ROMAN ([facility]) calcium level 8.5 mg/dL 8.5-10.1 Calcium Level ROMAN ( [facility]) anion gap 12 mEq/L 8-16 Anion Gap ROMAN ([facility]) AST/SGOT 13 U/L 7-37 AST/SGOT ROMAN ([facility]) ALT/SGPT 17 U/L 12-78 ALT/SGPT ROMAN ([facility]) alkaline phosphatase 57 U/L 45-117 Alkaline Phosph atase ROMAN ([facility]) bilirubin,total 0.4 mg/dL 0.2-1.0 Bilirubin,total ATHE ([facility]) total protein 6.2 gm/dL 6.4-8.2 Below low normal Total Protein AT TRAM ([facility]) albumin/globulin ratio 1.2-2.2 Albumin/globu gerrad Ratio ROMAN ([facility]) albumin 3.4 gm/dL 3.2-5.2 Albumin ROMAN ([facility]) ID Date Data Source [id number] 03/23/2020 06:02:00 AM EST ROMAN ([facility]) Name Value Range Interpretation Code Description Data Kaye rce(s) Supporting Document(s) white blood count 5.7 10 4.0-10.0 White Blood Count ROMAN ([facility]) red blood count 3.11 10 4.00-5.40 Below low normal Red Blood Coun t ROMAN ([facility]) hemoglobin 8.6 g/dL 12.0-15.5 Below low normal Hemoglobin ROMAN ( [facility]) hematocrit 26.3 % 36.0-47.0 Below low normal Hematocrit ROMAN ( [facility]) mean corpuscular volume 84.6 fL 80.0-96.0 Mean Corpusc ular Volume ROMAN ([facility]) mean corpuscular hemoglobin 27.7 pg 27.0-33.0 Mean Cor puscular Hemoglobin BRYAN ([facility]) mean corpuscular HGB conc 32.7 g/dL 32.0-36.5 Mean Corpu scular HGB Conc ROMAN ([facility]) red cell distribution width 15.5 % 11.5-14.5 Above high no rmal Red Cell Distribution Width ROMAN ([facility]) platelet count, automated 218 10 150-450 Platelet C ount, Automated ROMAN ([facility]) nucleated red blood cell % 0.0 % 0-0 Nucleated Red Blood Cell % BRYAN ([facility]) ID Date Data Source [id number] 03/23/2020 06:02:00 AM EST BRYAN ([facility]) Name Value Range Interpretation Code Description Data Kaye rce(s) Supporting Document(s) acetone/ketone > 46.00 <2.81 Above high normal Acetone/ketone BRYAN ([facility]) ID Date Data Source [id number] 03/23/2020 06:02:00 AM EST BRYAN ([facility]) Name Value Range Interpretation Code Description Data Kaye rce(s) Supporting Document(s) glucose, fasting 297 mg/dL 70-100 Above high normal Glucose, Fas ting ROMAN ([facility]) blood urea nitrogen 8 mg/dL 7-18 Blood Urea Nitro gen ROMAN ([facility]) creatinine for GFR 1.16 mg/dL 0.55-1.30 Creatinine for GF R BRYAN ([facility]) glomerular filtration rate > 60.0 >58 Glomerula r Filtration Rate BRYAN ([facility]) sodium level 134 mEq/L 136-145 Below low normal Sodium Level ATHE NA ([facility]) potassium serum 4.1 mEq/L 3.5-5.1 Potassium Serum ATHE NA ([facility]) chloride level 103 mEq/L 98-107 Chloride Level ROMAN ([facility]) carbon dioxide level 19 mEq/L 21-32 Below low normal Carbon Di oxide Level ROMAN ([facility]) anion gap 12 mEq/L 8-16 Anion Gap ROMAN ([facility]) calcium level 8.5 mg/dL 8.5-10.1 Calcium Level ROMAN ( [facility]) AST/SGOT 13 U/L 7-37 AST/SGOT ROMAN ([facility]) ALT/SGPT 17 U/L 12-78 ALT/SGPT ROMAN ([facility]) alkaline phosphatase 57 U/L 45-117 Alkaline Phosph atase ROMAN ([facility]) bilirubin,total 0.4 mg/dL 0.2-1.0 Bilirubin,total ATHE ([facility]) total protein 6.2 gm/dL 6.4-8.2 Below low normal Total Protein AT TRAM ([facility]) albumin 3.4 gm/dL 3.2-5.2 Albumin ROMAN ([facility]) albumin/globulin ratio 1.2-2.2 Albumin/globu gerard Ratio ROMAN ([facility]) ID Date Data Source [id number] 03/23/2020 06:02:00 AM EST ROMAN ([facility]) Name Value Range Interpretation Code Description Data Kaye rce(s) Supporting Document(s) acetone/ketone > 46.00 <2.81 Above high normal Acetone/ketone ROMAN ([facility]) ID Date Data Source [id number] 03/23/2020 06:02:00 AM EST ROMAN ([facility]) Name Value Range Interpretation Code Description Data Kaye rce(s) Supporting Document(s) glucose, fasting 297 mg/dL 70-100 Above high normal Glucose, Fas ting ROMAN ([facility]) blood urea nitrogen 8 mg/dL 7-18 Blood Urea Nitro gen ROMAN ([facility]) creatinine for GFR 1.16 mg/dL 0.55-1.30 Creatinine for GF R ROMAN ([facility]) glomerular filtration rate > 60.0 >58 Glomerula r Filtration Rate ROMAN ([facility]) sodium level 134 mEq/L 136-145 Below low normal Sodium Level ATHE NA ([facility]) potassium serum 4.1 mEq/L 3.5-5.1 Potassium Serum ATHE ([facility]) chloride level 103 mEq/L 98-107 Chloride Level ROMAN ([facility]) carbon dioxide level 19 mEq/L 21-32 Below low normal Carbon Di oxide Level ROMAN ([facility]) anion gap 12 mEq/L 8-16 Anion Gap ROMAN ([facility]) calcium level 8.5 mg/dL 8.5-10.1 Calcium Level ROMAN ( [facility]) AST/SGOT 13 U/L 7-37 AST/SGOT ROMAN ([facility]) ALT/SGPT 17 U/L 12-78 ALT/SGPT ROMAN ([facility]) alkaline phosphatase 57 U/L 45-117 Alkaline Phosph atase ROMAN ([facility]) bilirubin,total 0.4 mg/dL 0.2-1.0 Bilirubin,total ATHE ([facility]) total protein 6.2 gm/dL 6.4-8.2 Below low normal Total Protein AT TRAM ([facility]) albumin 3.4 gm/dL 3.2-5.2 Albumin ROMAN ([facility]) albumin/globulin ratio 1.2-2.2 Albumin/globu gerard Ratio ROMAN ([facility]) ID Date Data Source [id number] 03/23/2020 06:02:00 AM EST BRYAN ([facility]) Name Value Range Interpretation Code Description Data Kaye rce(s) Supporting Document(s) white blood count 5.7 10 4.0-10.0 White Blood Count ROMAN ([facility]) red blood count 3.11 10 4.00-5.40 Below low normal Red Blood Coun t ROMAN ([facility]) hemoglobin 8.6 g/dL 12.0-15.5 Below low normal Hemoglobin ROMAN ( [facility]) hematocrit 26.3 % 36.0-47.0 Below low normal Hematocrit ROMAN ( [facility]) mean corpuscular volume 84.6 fL 80.0-96.0 Mean Corpusc ular Volume BRYAN ([facility]) mean corpuscular hemoglobin 27.7 pg 27.0-33.0 Mean Cor puscular Hemoglobin ROMAN ([facility]) mean corpuscular HGB conc 32.7 g/dL 32.0-36.5 Mean Corpu scular HGB Conc ROMAN ([facility]) red cell distribution width 15.5 % 11.5-14.5 Above high no rmal Red Cell Distribution Width BRYAN ([facility]) platelet count, automated 218 10 150-450 Platelet C ount, Automated BRYAN ([facility]) nucleated red blood cell % 0.0 % 0-0 Nucleated Red Blood Cell % BRYAN ([facility]) ID Date Data Source [id number] 03/23/2020 06:02:00 AM EST BRYAN ([facility]) Name Value Range Interpretation Code Description Data Kaye rce(s) Supporting Document(s) acetone/ketone > 46.00 <2.81 Above high normal Acetone/ketone BRYAN ([facility]) ID Date Data Source [id number] 03/23/2020 06:02:00 AM EST BRYAN ([facility]) Name Value Range Interpretation Code Description Data Kaye rce(s) Supporting Document(s) glucose, fasting 297 mg/dL 70-100 Above high normal Glucose, Fas ting ROMAN ([facility]) blood urea nitrogen 8 mg/dL 7-18 Blood Urea Nitro gen BRYAN ([facility]) creatinine for GFR 1.16 mg/dL 0.55-1.30 Creatinine for GF R BRYAN ([facility]) glomerular filtration rate > 60.0 >58 Glomerula r Filtration Rate ROMAN ([facility]) sodium level 134 mEq/L 136-145 Below low normal Sodium Level ATHE NA ([facility]) potassium serum 4.1 mEq/L 3.5-5.1 Potassium Serum ATHE ([facility]) chloride level 103 mEq/L 98-107 Chloride Level ROMAN ([facility]) carbon dioxide level 19 mEq/L 21-32 Below low normal Carbon Di oxide Level ROMAN ([facility]) anion gap 12 mEq/L 8-16 Anion Gap ROMAN ([facility]) calcium level 8.5 mg/dL 8.5-10.1 Calcium Level ROMAN ( [facility]) AST/SGOT 13 U/L 7-37 AST/SGOT ROMAN ([facility]) ALT/SGPT 17 U/L 12-78 ALT/SGPT ROMAN ([facility]) bilirubin,total 0.4 mg/dL 0.2-1.0 Bilirubin,total ATHE ([facility]) alkaline phosphatase 57 U/L 45-117 Alkaline Phosph atase ROMAN ([facility]) total protein 6.2 gm/dL 6.4-8.2 Below low normal Total Protein AT TRAM ([facility]) albumin 3.4 gm/dL 3.2-5.2 Albumin ROMAN ([facility]) albumin/globulin ratio 1.2-2.2 Albumin/globu gerard Ratio BRYAN ([facility]) ID Date Data Source [id number] 03/23/2020 06:02:00 AM EST ROMAN ([facility]) Name Value Range Interpretation Code Description Data Kaye rce(s) Supporting Document(s) white blood count 5.7 10 4.0-10.0 White Blood Count ROMAN ([facility]) red blood count 3.11 10 4.00-5.40 Below low normal Red Blood Coun t ROMAN ([facility]) hemoglobin 8.6 g/dL 12.0-15.5 Below low normal Hemoglobin ROMAN ( [facility]) hematocrit 26.3 % 36.0-47.0 Below low normal Hematocrit ROMAN ( [facility]) mean corpuscular volume 84.6 fL 80.0-96.0 Mean Corpusc ular Volume ROMAN ([facility]) mean corpuscular hemoglobin 27.7 pg 27.0-33.0 Mean Cor puscular Hemoglobin ROMAN ([facility]) mean corpuscular HGB conc 32.7 g/dL 32.0-36.5 Mean Corpu scular HGB Conc ROMAN ([facility]) red cell distribution width 15.5 % 11.5-14.5 Above high no rmal Red Cell Distribution Width ROMAN ([facility]) platelet count, automated 218 10 150-450 Platelet C ount, Automated ROMAN ([facility]) nucleated red blood cell % 0.0 % 0-0 Nucleated Red Blood Cell % BRYAN ([facility]) ID Date Data Source [id number] 03/23/2020 05:08:00 AM EST BRYAN ([facility]) Name Value Range Interpretation Code Description Data Kaye rce(s) Supporting Document(s) bedside glucose 279 mg/dL 70-105 Above high normal Bedside Gluco se [facility]) ID Date Data Source [id number] 03/23/2020 05:08:00 AM EST BRYAN ([facility]) Name Value Range Interpretation Code Description Data Kaye rce(s) Supporting Document(s) bedside glucose 279 mg/dL 70-105 Above high normal Bedside Gluco se BRYAN ([facility]) ID Date Data Source [id number] 03/23/2020 05:08:00 AM EST ROMAN ([facility]) Name Value Range Interpretation Code Description Data Kaye rce(s) Supporting Document(s) bedside glucose 279 mg/dL 70-105 Above high normal Bedside Gluco se BRYAN ([facility]) ID Date Data Source [id number] 03/23/2020 05:08:00 AM EST ROMAN ([facility]) Name Value Range Interpretation Code Description Data Kaye rce(s) Supporting Document(s) bedside glucose 279 mg/dL 70-105 Above high normal Bedside Gluco se ROMAN ([facility]) ID Date Data Source [id number] 03/23/2020 05:08:00 AM EST ROMAN ([facility]) Name Value Range Interpretation Code Description Data Kaye rce(s) Supporting Document(s) bedside glucose 279 mg/dL 70-105 Above high normal Bedside Gluco se ROMAN ([facility]) ID Date Data Source [id number] 03/23/2020 05:08:00 AM EST ROMAN ([facility]) Name Value Range Interpretation Code Description Data Kaye rce(s) Supporting Document(s) bedside glucose 279 mg/dL 70-105 Above high normal Bedside Gluco se BRYAN ([facility]) ID Date Data Source [id number] 03/23/2020 02:09:00 AM EST ROMAN ([facility]) Name Value Range Interpretation Code Description Data Kaye rce(s) Supporting Document(s) bedside glucose 198 mg/dL 70-105 Above high normal Bedside Gluco se ROMAN ([facility]) ID Date Data Source [id number] 03/23/2020 02:09:00 AM EST ROMAN [facility]) Name Value Range Interpretation Code Description Data Kaye rce(s) Supporting Document(s) bedside glucose 198 mg/dL 70-105 Above high normal Bedside Gluco se ROMAN ([facility]) ID Date Data Source [id number] 03/23/2020 02:09:00 AM EST ROMAN ([facility]) Name Value Range Interpretation Code Description Data Kaye rce(s) Supporting Document(s) bedside glucose 198 mg/dL 70-105 Above high normal [facility] Date Data Source [id number] 03/23/2020 02:09:00 AM EST ROMAN ([facility]) Name Value Range Interpretation Code Description Data Kaye rce(s) Supporting Document(s) bedside glucose 198 mg/dL 70-105 Above high normal Bedside Gluco se ROMAN ([facility]) ID Date Data Source [id number] 03/23/2020 02:09:00 AM EST ROMAN ([facility]) Name Value Range Interpretation Code Description Data Kaye rce(s) Supporting Document(s) bedside glucose 198 mg/dL 70-105 Above high normal Bedside Gluco se ROMAN ([facility]) ID Date Data Source [id number] 03/23/2020 02:09:00 AM EST ROMAN ([facility]) Name Value Range Interpretation Code Description Data Kaye rce(s) Supporting Document(s) bedside glucose 198 mg/dL 70-105 Above high normal Bedside Gluco se ROMAN ([facility]) ID Date Data Source [id number] 03/22/2020 11:52:00 PM EST ROMAN ([facility]) Name Value Range Interpretation Code Description Data Kaye rce(s) Supporting Document(s) bedside glucose 176 mg/dL 70-105 Above high normal [facility] Date Data Source [id number] 03/22/2020 11:52:00 PM EST ROMAN ([facility]) Name Value Range Interpretation Code Description Data Kaye rce(s) Supporting Document(s) bedside glucose 176 mg/dL 70-105 Above high normal [facility] Date Data Source [id number] 03/22/2020 11:52:00 PM EST ROMAN [facility]) Name Value Range Interpretation Code Description Data Kaye rce(s) Supporting Document(s) bedside glucose 176 mg/dL 70-105 Above high normal Bedside Gluco se ROMAN ([facility]) ID Date Data Source [id number] 03/22/2020 11:52:00 PM EST ROMAN ([facility]) Name Value Range Interpretation Code Description Data Kaye rce(s) Supporting Document(s) bedside glucose 176 mg/dL 70-105 Above high normal Bedside Gluco se ROMAN ([facility]) ID Date Data Source [id number] 03/22/2020 11:52:00 PM EST ROMAN ([facility]) Name Value Range Interpretation Code Description Data Kaye rce(s) Supporting Document(s) bedside glucose 176 mg/dL 70-105 Above high normal Bedside Gluco se BRYAN ([facility]) ID Date Data Source [id number] 03/22/2020 11:52:00 PM EST ROMAN ([facility]) Name Value Range Interpretation Code Description Data Kaye rce(s) Supporting Document(s) bedside glucose 176 mg/dL 70-105 Above high normal Bedside Gluco se ROMAN ([facility]) ID Date Data Source [id number] 03/22/2020 08:46:00 PM EST ROMAN ([facility]) Name Value Range Interpretation Code Description Data Kaye rce(s) Supporting Document(s) bedside glucose 209 mg/dL 70-105 Above high normal Bedside Gluco se ROMAN ([facility]) ID Date Data Source [id number] 03/22/2020 08:46:00 PM EST ROMAN ([facility]) Name Value Range Interpretation Code Description Data Kaye rce(s) Supporting Document(s) bedside glucose 209 mg/dL 70-105 Above high normal [facility] Date Data Source [id number] 03/22/2020 08:46:00 PM EST ROMAN ([facility]) Name Value Range Interpretation Code Description Data Kaye rce(s) Supporting Document(s) bedside glucose 209 mg/dL 70-105 Above high normal Bedside Gluco se ROMAN ([facility]) ID Date Data Source [id number] 03/22/2020 08:46:00 PM EST ROMAN ([facility]) Name Value Range Interpretation Code Description Data Kaye rce(s) Supporting Document(s) bedside glucose 209 mg/dL 70-105 Above high normal Bedside Gluco se ROMAN ([facility]) ID Date Data Source [id number] 03/22/2020 08:46:00 PM EST ROMAN ([facility]) Name Value Range Interpretation Code Description Data Kaye rce(s) Supporting Document(s) bedside glucose 209 mg/dL 70-105 Above high normal Bedside Gluco se BRYAN ([facility]) ID Date Data Source [id number] 03/22/2020 08:46:00 PM EST ROMAN ([facility]) Name Value Range Interpretation Code Description Data Kaye rce(s) Supporting Document(s) bedside glucose 209 mg/dL 70-105 Above high normal Bedside Gluco se ROMAN ([facility]) ID Date Data Source [id number] 03/22/2020 04:30:00 PM EST ROMAN ([facility]) Name Value Range Interpretation Code Description Data Kaye rce(s) Supporting Document(s) bedside glucose 199 mg/dL 70-105 Above high normal [facility] ID Date Data Source [id number] 03/22/2020 04:30:00 PM [facility] Name Value Range Interpretation Code Description Data Kaye rce(s) Supporting Document(s) bedside glucose 199 mg/dL 70-105 Above high normal Bedside Gluco se ROMAN ([facility]) ID Date Data Source [id number] 03/22/2020 04:30:00 PM EST ROMAN ([facility]) Name Value Range Interpretation Code Description Data Kaye rce(s) Supporting Document(s) bedside glucose 199 mg/dL 70-105 Above high normal Bedside Gluco se ROMAN ([facility]) ID Date Data Source [id number] 03/22/2020 04:30:00 PM EST ROMAN ([facility]) Name Value Range Interpretation Code Description Data Kaye rce(s) Supporting Document(s) bedside glucose 199 mg/dL 70-105 Above high normal Bedside Gluco se BRYAN ([facility]) ID Date Data Source [id number] 03/22/2020 04:30:00 PM EST ROMAN ([facility]) Name Value Range Interpretation Code Description Data Kaye rce(s) Supporting Document(s) bedside glucose 199 mg/dL 70-105 Above high normal Bedside Gluco se BRYAN ([facility]) ID Date Data Source [id number] 03/22/2020 04:30:00 PM EST ROMAN ([facility]) Name Value Range Interpretation Code Description Data Kaye rce(s) Supporting Document(s) bedside glucose 199 mg/dL 70-105 Above high normal Bedside Gluco se ROMAN ([facility]) ID Date Data Source [id number] 03/22/2020 11:15:00 AM EST ROMAN ([facility]) Name Value Range Interpretation Code Description Data Kaye rce(s) Supporting Document(s) bedside glucose 169 mg/dL 70-105 Above high normal Bedside Gluco se [facility]) ID Date Data Source [id number] 03/22/2020 11:15:00 AM EST ROMAN ([facility]) Name Value Range Interpretation Code Description Data Kaye rce(s) Supporting Document(s) bedside glucose 169 mg/dL 70-105 Above high normal Bedside Gluco se ROMAN ([facility]) ID Date Data Source [id number] 03/22/2020 11:15:00 AM EST ROMAN ([facility]) Name Value Range Interpretation Code Description Data Kaye rce(s) Supporting Document(s) bedside glucose 169 mg/dL 70-105 Above high normal Bedside Gluco se ROMAN ([facility]) ID Date Data Source [id number] 03/22/2020 11:15:00 AM EST ROMAN ([facility]) Name Value Range Interpretation Code Description Data Kaye rce(s) Supporting Document(s) bedside glucose 169 mg/dL 70-105 Above high normal Bedside Gluco se ROMAN ([facility]) ID Date Data Source [id number] 03/22/2020 11:15:00 AM EST ROMAN ([facility]) Name Value Range Interpretation Code Description Data Kaye rce(s) Supporting Document(s) bedside glucose 169 mg/dL 70-105 Above high normal Bedside Gluco se ROMAN ([facility]) ID Date Data Source [id number] 03/22/2020 11:15:00 AM EST ROMAN ([facility]) Name Value Range Interpretation Code Description Data Kaye rce(s) Supporting Document(s) bedside glucose 169 mg/dL 70-105 Above high [facility] Date Data Source [id number] 03/22/2020 08:15:00 AM [facility] Name Value Range Interpretation Code Description Data Kaye rce(s) Supporting Document(s) acetone/ketone 25.32 mg/dL <2.81 Above high normal Acetone/keton e ROMAN ([facility]) ID Date Data Source [id number] 03/22/2020 08:15:00 AM EST ROMAN ([facility]) Name Value Range Interpretation Code Description Data Kaye rce(s) Supporting Document(s) glucose, fasting 147 mg/dL 70-100 Above high normal Glucose, Fas ting ROMAN ([facility]) blood urea nitrogen 11 mg/dL 7-18 Blood Urea Nitro gen ROMAN ([facility]) creatinine for GFR 1.10 mg/dL 0.55-1.30 Creatinine for GF R BRYAN ([facility]) glomerular filtration rate > 60.0 >58 Glomerula r Filtration Rate BRYAN ([facility]) sodium level 139 mEq/L 136-145 Sodium Level BRYAN (No [facility]) chloride level 107 mEq/L 98-107 Chloride Level BRYAN ([facility]) potassium serum 3.4 mEq/L 3.5-5.1 Below low normal Potassium Seru m ROMAN ([facility]) carbon dioxide level 22 mEq/L 21-32 Carbon Dioxide Level BRYAN ([facility]) anion gap 10 mEq/L 8-16 Anion Gap BRYAN ([facility]) calcium level 8.4 mg/dL 8.5-10.1 Below low normal Calcium Level AT [facility]) AST/SGOT 10 U/L 7-37 AST/SGOT ROMAN ([facility]) ALT/SGPT 14 U/L 12-78 ALT/SGPT ROMAN ([facility]) alkaline phosphatase 54 U/L 45-117 Alkaline Phosph atase ROMAN ([facility]) total protein 5.8 gm/dL 6.4-8.2 Below low normal Total Protein AT [facility]) bilirubin,total 0.6 mg/dL 0.2-1.0 Bilirubin,total ATHE ([facility]) albumin 3.1 gm/dL 3.2-5.2 Below low normal Albumin BRYAN ( [facility]) albumin/globulin ratio 1.2-2.2 Below low normal Albumin /globulin Ratio ROMAN ([facility]) ID Date Data Source [id number] 03/22/2020 08:15:00 AM EST ROMAN ([facility]) Name Value Range Interpretation Code Description Data Kaye rce(s) Supporting Document(s) white blood count 5.1 10 4.0-10.0 White Blood Count ROMAN ([facility]) red blood count 3.24 10 4.00-5.40 Below low normal Red Blood Coun t BRYAN ([facility]) hemoglobin 8.9 g/dL 12.0-15.5 Below low normal Hemoglobin BRYAN ( [facility]) hematocrit 27.2 % 36.0-47.0 Below low normal Hematocrit BRYAN ( [facility]) mean corpuscular hemoglobin 27.5 pg 27.0-33.0 Mean Cor puscular Hemoglobin ROMAN ([facility]) mean corpuscular volume 84.0 fL 80.0-96.0 Mean Corpusc ular Volume BRYAN ([facility]) mean corpuscular HGB conc 32.7 g/dL 32.0-36.5 Mean Corpu scular HGB Conc BRYAN ([facility]) red cell distribution width 15.2 % 11.5-14.5 Above high no rmal Red Cell Distribution Width ROMAN ([facility]) platelet count, automated 214 10 150-450 Platelet C ount, Automated ROMAN ([facility]) nucleated red blood cell % 0.0 % 0-0 Nucleated Red Blood Cell % BRYAN ([facility]) ID Date Data Source [id number] 03/22/2020 08:15:00 AM EST ROMAN ([facility]) Name Value Range Interpretation Code Description Data Kaye rce(s) Supporting Document(s) acetone/ketone 25.32 mg/dL <2.81 Above high normal Acetone/keton e [facility]) ID Date Data Source [id number] 03/22/2020 08:15:00 AM EST ROMAN ([facility]) Name Value Range Interpretation Code Description Data Kaye rce(s) Supporting Document(s) glucose, fasting 147 mg/dL 70-100 Above high normal Glucose, Fas ting ROMAN ([facility]) blood urea nitrogen 11 mg/dL 7-18 Blood Urea Nitro gen ROMAN ([facility]) creatinine for GFR 1.10 mg/dL 0.55-1.30 Creatinine for GF R ROMAN ([facility]) glomerular filtration rate > 60.0 >58 Glomerula r Filtration Rate ROMAN ([facility]) sodium level 139 mEq/L 136-145 Sodium Level ROMAN (No [facility]) potassium serum 3.4 mEq/L 3.5-5.1 Below low normal Potassium Seru m ROMAN ([facility]) chloride level 107 mEq/L 98-107 Chloride Level BRYAN ([facility]) carbon dioxide level 22 mEq/L 21-32 Carbon Dioxide Level ROMAN ([facility]) anion gap 10 mEq/L 8-16 Anion Gap ROMAN ([facility]) calcium level 8.4 mg/dL 8.5-10.1 Below low normal Calcium Level AT [facility] ([facility]) AST/SGOT 10 U/L 7-37 AST/SGOT ROMAN ([facility]) ALT/SGPT 14 U/L 12-78 ALT/SGPT BRYAN ([facility]) alkaline phosphatase 54 U/L 45-117 Alkaline Phosph atase ROMAN ([facility]) bilirubin,total 0.6 mg/dL 0.2-1.0 Bilirubin,total ATHE NA ([facility]) total protein 5.8 gm/dL 6.4-8.2 Below low normal Total Protein AT [facility] ([facility]) albumin/globulin ratio 1.2-2.2 Below low normal Albumin /globulin Ratio ROMAN ([facility]) albumin 3.1 gm/dL 3.2-5.2 Below low normal Albumin ROMAN ( [facility]) ID Date Data Source [id number] 03/22/2020 08:15:00 AM EST ROMAN ([facility]) Name Value Range Interpretation Code Description Data Kaye rce(s) Supporting Document(s) white blood count 5.1 10 4.0-10.0 White Blood Count ROMAN ([facility]) red blood count 3.24 10 4.00-5.40 Below low normal Red Blood Coun t ROMAN ([facility]) hemoglobin 8.9 g/dL 12.0-15.5 Below low normal Hemoglobin ROMAN ( [facility]) hematocrit 27.2 % 36.0-47.0 Below low normal Hematocrit ROMAN ( [facility]) mean corpuscular volume 84.0 fL 80.0-96.0 Mean Corpusc ular Volume BRYAN ([facility]) mean corpuscular hemoglobin 27.5 pg 27.0-33.0 Mean Cor puscular Hemoglobin BRYAN ([facility]) mean corpuscular HGB conc 32.7 g/dL 32.0-36.5 Mean Corpu scular HGB Conc BRYAN ([facility]) red cell distribution width 15.2 % 11.5-14.5 Above high no rmal Red Cell Distribution Width ROMAN ([facility]) platelet count, automated 214 10 150-450 Platelet C ount, Automated ROMAN ([facility]) nucleated red blood cell % 0.0 % 0-0 Nucleated Red Blood Cell % BRYAN ([facility]) ID Date Data Source [id number] 03/22/2020 08:15:00 AM EST ROMAN ([facility]) Name Value Range Interpretation Code Description Data Kaye rce(s) Supporting Document(s) acetone/ketone 25.32 mg/dL <2.81 Above high normal Acetone/keton e BRYAN ([facility]) ID Date Data Source [id number] 03/22/2020 08:15:00 AM [facility] Name Value Range Interpretation Code Description Data Kaye rce(s) Supporting Document(s) glucose, fasting 147 mg/dL 70-100 Above high normal Glucose, Fas ting ROMAN ([facility]) blood urea nitrogen 11 mg/dL 7-18 Blood Urea Nitro gen ROMAN ([facility]) creatinine for GFR 1.10 mg/dL 0.55-1.30 Creatinine for GF R BRYAN ([facility]) glomerular filtration rate > 60.0 >58 Glomerula r Filtration Rate ROMAN ([facility]) sodium level 139 mEq/L 136-145 Sodium Level ROMAN (No [facility]) potassium serum 3.4 mEq/L 3.5-5.1 Below low normal Potassium Seru m BRYAN ([facility]) chloride level 107 mEq/L 98-107 Chloride Level BRYAN ([facility]) carbon dioxide level 22 mEq/L 21-32 Carbon Dioxide Level BRYAN ([facility]) anion gap 10 mEq/L 8-16 Anion Gap BRYAN ([facility]) calcium level 8.4 mg/dL 8.5-10.1 Below low normal Calcium Level AT [facility]) ALT/SGPT 14 U/L 12-78 ALT/SGPT BRYAN ([facility]) AST/SGOT 10 U/L 7-37 AST/SGOT BRYAN ([facility]) alkaline phosphatase 54 U/L 45-117 Alkaline Phosph atase BRYAN ([facility]) bilirubin,total 0.6 mg/dL 0.2-1.0 [facility] total protein 5.8 gm/dL 6.4-8.2 Below low normal Total Protein AT [facility]) albumin 3.1 gm/dL 3.2-5.2 Below low normal Albumin BRYAN ( [facility]) albumin/globulin ratio 1.2-2.2 Below low normal Albumin /globulin Ratio BRYAN ([facility]) ID Date Data Source [id number] 03/22/2020 08:15:00 AM EST [facility]) Name Value Range Interpretation Code Description Data Kaye rce(s) Supporting Document(s) red blood count 3.24 10 4.00-5.40 Below low normal Red Blood Coun t BRYAN ([facility]) white blood count 5.1 10 4.0-10.0 White Blood Count BRYAN ([facility]) hemoglobin 8.9 g/dL 12.0-15.5 Below low normal Hemoglobin BRYAN ( [facility]) hematocrit 27.2 % 36.0-47.0 Below low normal Hematocrit BRYAN ( [facility]) mean corpuscular volume 84.0 fL 80.0-96.0 Mean Corpusc ular Volume BRYAN ([facility]) mean corpuscular hemoglobin 27.5 pg 27.0-33.0 Mean Cor puscular Hemoglobin BRYAN ([facility]) mean corpuscular HGB conc 32.7 g/dL 32.0-36.5 Mean Corpu scular HGB Conc BRYAN ([facility]) red cell distribution width 15.2 % 11.5-14.5 Above high no rmal Red Cell Distribution Width BRYAN ([facility]) platelet count, automated 214 10 150-450 Platelet C ount, Automated BRYAN ([facility]) nucleated red blood cell % 0.0 % 0-0 Nucleated Red Blood Cell % BRYAN ([facility]) ID Date Data Source [id number] 03/22/2020 08:15:00 AM EST BRYAN ([facility]) Name Value Range Interpretation Code Description Data Kaye rce(s) Supporting Document(s) acetone/ketone 25.32 mg/dL <2.81 Above high normal Acetone/keton e BRYAN ([facility]) ID Date Data Source [id number] 03/22/2020 08:15:00 AM EST BRYAN ([facility]) Name Value Range Interpretation Code Description Data Kaye rce(s) Supporting Document(s) glucose, fasting 147 mg/dL 70-100 Above high normal Glucose, Fas ting BRYAN ([facility]) blood urea nitrogen 11 mg/dL 7-18 Blood Urea Nitro gen BRYAN ([facility]) creatinine for GFR 1.10 mg/dL 0.55-1.30 Creatinine for GF R ROMAN ([facility]) glomerular filtration rate > 60.0 >58 Glomerula r Filtration Rate ROMAN ([facility]) sodium level 139 mEq/L 136-145 Sodium Level ROMAN (No [facility]) potassium serum 3.4 mEq/L 3.5-5.1 Below low normal Potassium Seru m ROMAN ([facility]) chloride level 107 mEq/L 98-107 Chloride Level ROMAN ([facility]) carbon dioxide level 22 mEq/L 21-32 Carbon Dioxide Level ROMAN ([facility]) anion gap 10 mEq/L 8-16 Anion Gap ROMAN ([facility]) AST/SGOT 10 U/L 7-37 AST/SGOT ROMAN ([facility]) calcium level 8.4 mg/dL 8.5-10.1 Below low normal Calcium Level AT [facility]) ALT/SGPT 14 U/L 12-78 ALT/SGPT ROMAN ([facility]) alkaline phosphatase 54 U/L 45-117 Alkaline Phosph atase ROMAN ([facility]) bilirubin,total 0.6 mg/dL 0.2-1.0 [facility] total protein 5.8 gm/dL 6.4-8.2 Below low normal Total Protein AT [facility]) albumin 3.1 gm/dL 3.2-5.2 Below low normal Albumin ROMAN ( [facility]) albumin/globulin ratio 1.2-2.2 Below low normal Albumin /globulin Ratio BRYAN ([facility]) ID Date Data Source [id number] 03/22/2020 08:15:00 AM EST [facility]) Name Value Range Interpretation Code Description Data Kaye rce(s) Supporting Document(s) white blood count 5.1 10 4.0-10.0 White Blood Count ROMAN ([facility]) red blood count 3.24 10 4.00-5.40 Below low normal Red Blood Coun t BRYAN ([facility]) hemoglobin 8.9 g/dL 12.0-15.5 Below low normal Hemoglobin BRYAN ( [facility]) hematocrit 27.2 % 36.0-47.0 Below low normal Hematocrit BRYAN ( [facility]) mean corpuscular volume 84.0 fL 80.0-96.0 Mean Corpusc ular Volume ROMAN ([facility]) mean corpuscular hemoglobin 27.5 pg 27.0-33.0 Mean Cor puscular Hemoglobin ROMAN ([facility]) mean corpuscular HGB conc 32.7 g/dL 32.0-36.5 Mean Corpu scular HGB Conc BRYAN ([facility]) red cell distribution width 15.2 % 11.5-14.5 Above high no rmal Red Cell Distribution Width BRYAN ([facility]) platelet count, automated 214 10 150-450 Platelet C ount, Automated BRYAN ([facility]) nucleated red blood cell % 0.0 % 0-0 Nucleated Red Blood Cell % BRYAN ([facility]) ID Date Data Source [id number] 03/22/2020 08:15:00 AM EST BRYAN ([facility]) Name Value Range Interpretation Code Description Data Kaye rce(s) Supporting Document(s) acetone/ketone 25.32 mg/dL <2.81 Above high normal Acetone/keton e BRYAN ([facility]) ID Date Data Source [id number] 03/22/2020 08:15:00 AM EST BRYAN ([facility]) Name Value Range Interpretation Code Description Data Kaye rce(s) Supporting Document(s) glucose, fasting 147 mg/dL 70-100 Above high normal Glucose, Fas ting BRYAN ([facility]) blood urea nitrogen 11 mg/dL 7-18 Blood Urea Nitro gen ROMAN ([facility]) creatinine for GFR 1.10 mg/dL 0.55-1.30 Creatinine for GF R BRYAN ([facility]) glomerular filtration rate > 60.0 >58 Glomerula r Filtration Rate BRYAN ([facility]) sodium level 139 mEq/L 136-145 Sodium Level ROMAN (No [facility]) potassium serum 3.4 mEq/L 3.5-5.1 Below low normal Potassium Seru m ROMAN ([facility]) chloride level 107 mEq/L 98-107 Chloride Level ROMAN ([facility]) carbon dioxide level 22 mEq/L 21-32 Carbon Dioxide Level ROMAN ([facility]) anion gap 10 mEq/L 8-16 Anion Gap ROMAN ([facility]) calcium level 8.4 mg/dL 8.5-10.1 Below low normal Calcium Level AT [facility] ([facility]) AST/SGOT 10 U/L 7-37 AST/SGOT ROMAN ([facility]) ALT/SGPT 14 U/L 12-78 ALT/SGPT ROMAN ([facility]) alkaline phosphatase 54 U/L 45-117 Alkaline Phosph atase ROMAN ([facility]) bilirubin,total 0.6 mg/dL 0.2-1.0 Bilirubin,total ATHE ([facility]) total protein 5.8 gm/dL 6.4-8.2 Below low normal Total Protein AT [facility]) albumin 3.1 gm/dL 3.2-5.2 Below low normal Albumin ROMAN ( [facility]) albumin/globulin ratio 1.2-2.2 Below low normal Albumin /globulin Ratio ROMAN ([facility]) ID Date Data Source [id number] 03/22/2020 08:15:00 AM EST ROMAN ([facility]) Name Value Range Interpretation Code Description Data Kaye rce(s) Supporting Document(s) white blood count 5.1 10 4.0-10.0 White Blood Count ROMAN ([facility]) red blood count 3.24 10 4.00-5.40 Below low normal Red Blood Coun t ROMAN ([facility]) hemoglobin 8.9 g/dL 12.0-15.5 Below low normal Hemoglobin ROMAN ( [facility]) hematocrit 27.2 % 36.0-47.0 Below low normal Hematocrit ROMAN ( [facility]) mean corpuscular volume 84.0 fL 80.0-96.0 Mean Corpusc ular Volume ROMAN ([facility]) mean corpuscular hemoglobin 27.5 pg 27.0-33.0 Mean Cor puscular Hemoglobin BRYAN ([facility]) mean corpuscular HGB conc 32.7 g/dL 32.0-36.5 Mean Corpu scular HGB Conc ROMAN ([facility]) red cell distribution width 15.2 % 11.5-14.5 Above high no rmal Red Cell Distribution Width ROMAN ([facility]) platelet count, automated 214 10 150-450 Platelet C ount, Automated BRYAN ([facility]) nucleated red blood cell % 0.0 % 0-0 Nucleated Red Blood Cell % BRYAN ([facility]) ID Date Data Source [id number] 03/22/2020 08:15:00 AM EST BRYAN ([facility]) Name Value Range Interpretation Code Description Data Kaye rce(s) Supporting Document(s) acetone/ketone 25.32 mg/dL <2.81 Above high normal Acetone/keton e BRYAN ([facility]) ID Date Data Source [id number] 03/22/2020 08:15:00 AM EST [facility]) Name Value Range Interpretation Code Description Data Kaye rce(s) Supporting Document(s) glucose, fasting 147 mg/dL 70-100 Above high normal Glucose, Fas ting ROMAN ([facility]) blood urea nitrogen 11 mg/dL 7-18 Blood Urea Nitro gen ROMAN ([facility]) creatinine for GFR 1.10 mg/dL 0.55-1.30 Creatinine for GF R BRYAN ([facility]) glomerular filtration rate > 60.0 >58 Glomerula r Filtration Rate BRYAN ([facility]) sodium level 139 mEq/L 136-145 Sodium Level ROMAN (No [facility]) potassium serum 3.4 mEq/L 3.5-5.1 Below low normal Potassium Seru m ROMAN ([facility]) chloride level 107 mEq/L 98-107 Chloride Level ROMAN ([facility]) carbon dioxide level 22 mEq/L 21-32 Carbon Dioxide Level ROMAN ([facility]) anion gap 10 mEq/L 8-16 Anion Gap ROMAN ([facility]) calcium level 8.4 mg/dL 8.5-10.1 Below low normal Calcium Level AT [facility] ([facility]) AST/SGOT 10 U/L 7-37 AST/SGOT ROMAN ([facility]) ALT/SGPT 14 U/L 12-78 ALT/SGPT ROMAN ([facility]) bilirubin,total 0.6 mg/dL 0.2-1.0 [facility] alkaline phosphatase 54 U/L 45-117 Alkaline Phosph atase ROMAN ([facility]) total protein 5.8 gm/dL 6.4-8.2 Below low normal Total Protein AT [facility] ([facility]) albumin 3.1 gm/dL 3.2-5.2 Below low normal Albumin ROMAN ( [facility]) albumin/globulin ratio 1.2-2.2 Below low normal Albumin /globulin Ratio BRYAN ([facility]) ID Date Data Source [id number] 03/22/2020 08:15:00 AM EST BRYAN ([facility]) Name Value Range Interpretation Code Description Data Kaye rce(s) Supporting Document(s) white blood count 5.1 10 4.0-10.0 White Blood Count ROMAN ([facility]) red blood count 3.24 10 4.00-5.40 Below low normal Red Blood Coun t ROMAN ([facility]) hemoglobin 8.9 g/dL 12.0-15.5 Below low normal Hemoglobin ROMAN ( [facility]) hematocrit 27.2 % 36.0-47.0 Below low normal Hematocrit ROMAN ( [facility]) mean corpuscular volume 84.0 fL 80.0-96.0 Mean Corpusc ular Volume ROMAN ([facility]) mean corpuscular hemoglobin 27.5 pg 27.0-33.0 Mean Cor puscular Hemoglobin ROMAN ([facility]) mean corpuscular HGB conc 32.7 g/dL 32.0-36.5 Mean Corpu scular HGB Conc ROMAN ([facility]) red cell distribution width 15.2 % 11.5-14.5 Above high no rmal Red Cell Distribution Width ROMAN ([facility]) platelet count, automated 214 10 150-450 Platelet C ount, Automated ROMAN ([facility]) nucleated red blood cell % 0.0 % 0-0 Nucleated Red Blood Cell % ROMAN ([facility]) ID Date Data Source [id number] 03/22/2020 07:45:00 AM EST BRYAN ([facility]) Name Value Range Interpretation Code Description Data Kaye rce(s) Supporting Document(s) bedside glucose 99 mg/dL 70-105 Bedside Glucose ATHE ([facility]) ID Date Data Source [id number] 03/22/2020 07:45:00 AM EST [facility]) Name Value Range Interpretation Code Description Data Kaye rce(s) Supporting Document(s) bedside glucose 99 mg/dL 70-105 Bedside Glucose ATHE ([facility]) ID Date Data Source [id number] 03/22/2020 07:45:00 AM EST ROMAN ([facility]) Name Value Range Interpretation Code Description Data Kaye rce(s) Supporting Document(s) bedside glucose 99 mg/dL 70-105 Bedside Glucose ATHE NA ([facility]) ID Date Data Source [id number] 03/22/2020 07:45:00 [facility] Name Value Range Interpretation Code Description Data Kaye rce(s) Supporting Document(s) bedside glucose 99 mg/dL 70-105 Bedside Glucose ATHE NA ([facility]) ID Date Data Source [id number] 03/22/2020 07:45:00 AM EST ROMAN ([facility]) Name Value Range Interpretation Code Description Data Kaye rce(s) Supporting Document(s) bedside glucose 99 mg/dL 70-105 Bedside Glucose ATHVanessa ORDOÑEZ ([facility]) ID Date Data Source [id number] 03/22/2020 07:45:00 AM EST ROMAN ([facility]) Name Value Range Interpretation Code Description Data Kaye rce(s) Supporting Document(s) bedside glucose 99 mg/dL 70-105 Bedside Glucose ATHVanessa ORDOÑEZ ([facility]) ID Date Data Source [id number] 03/22/2020 06:55:00 AM EST ROMAN ([facility]) Name Value Range Interpretation Code Description Data Kaye rce(s) Supporting Document(s) bedside glucose 45 mg/dL 70-105 Below low normal Bedside Glucos e ROMAN ([facility]) ID Date Data Source [id number] 03/22/2020 06:55:00 AM EST ROMAN ([facility]) Name Value Range Interpretation Code Description Data Kaye rce(s) Supporting Document(s) bedside glucose 45 mg/dL 70-105 Below low normal Bedside Glucos e ROMAN ([facility]) ID Date Data Source [id number] 03/22/2020 06:55:00 AM EST ROMAN ([facility]) Name Value Range Interpretation Code Description Data Kaye rce(s) Supporting Document(s) bedside glucose 45 mg/dL 70-105 Below low normal Bedside Glucos e ROMAN ([facility]) ID Date Data Source [id number] 03/22/2020 06:55:00 AM EST ORMAN ([facility]) Name Value Range Interpretation Code Description Data Kaye rce(s) Supporting Document(s) bedside glucose 45 mg/dL 70-105 Below low normal Bedside Glucos e ROMAN ([facility]) ID Date Data Source [id number] 03/22/2020 06:55:00 AM EST ROMAN ([facility]) Name Value Range Interpretation Code Description Data Kaye rce(s) Supporting Document(s) bedside glucose 45 mg/dL 70-105 Below low normal Bedside Glucos e ROMAN ([facility]) ID Date Data Source [id number] 03/22/2020 06:55:00 AM EST ROMAN ([facility]) Name Value Range Interpretation Code Description Data Kaye rce(s) Supporting Document(s) bedside glucose 45 mg/dL 70-105 Below low normal Bedside Glucos e ROMAN ([facility]) ID Date Data Source [id number] 03/21/2020 10:31:00 PM EST ROMAN ([facility]) Name Value Range Interpretation Code Description Data Kaye rce(s) Supporting Document(s) bedside glucose 104 mg/dL 70-105 Bedside Glucose ATHE NA ([facility]) ID Date Data Source [id number] 03/21/2020 10:31:00 PM EST ROMAN ([facility]) Name Value Range Interpretation Code Description Data Kaye rce(s) Supporting Document(s) bedside glucose 104 mg/dL 70-105 Bedside Glucose ATHE NA ([facility]) ID Date Data Source [id number] 03/21/2020 10:31:00 PM EST ROMAN ([facility]) Name Value Range Interpretation Code Description Data Kaye rce(s) Supporting Document(s) bedside glucose 104 mg/dL 70-105 Bedside Glucose ATHE NA ([facility]) ID Date Data Source [id number] 03/21/2020 10:31:00 PM EST ROMAN ([facility]) Name Value Range Interpretation Code Description Data Kaye rce(s) Supporting Document(s) bedside glucose 104 mg/dL 70-105 Bedside Glucose ATHVanessa ORDOÑEZ ([facility]) ID Date Data Source [id number] 03/21/2020 10:31:00 PM EST ROMAN ([facility]) Name Value Range Interpretation Code Description Data Kaye rce(s) Supporting Document(s) bedside glucose 104 mg/dL 70-105 Bedside Glucose ATHVanessa ORDOÑEZ ([facility]) ID Date Data Source [id number] 03/21/2020 10:31:00 PM EST ROMAN ([facility]) Name Value Range Interpretation Code Description Data Kaye rce(s) Supporting Document(s) bedside glucose 104 mg/dL 70-105 Bedside Glucose ATHVanessa ORDOÑEZ ([facility]) ID Date Data Source [id number] 03/21/2020 09:57:00 PM EST ROMAN ([facility]) Name Value Range Interpretation Code Description Data Kaye rce(s) Supporting Document(s) bedside glucose 39 mg/dL 70-105 Below low normal Bedside Glucos e ROMAN ([facility]) ID Date Data Source [id number] 03/21/2020 09:57:00 PM EST ROMAN ([facility]) Name Value Range Interpretation Code Description Data Kaye rce(s) Supporting Document(s) bedside glucose 39 mg/dL 70-105 Below low normal Bedside Glucos e ROMAN ([facility]) ID Date Data Source [id number] 03/21/2020 09:57:00 PM EST ROMAN ([facility]) Name Value Range Interpretation Code Description Data Kaye rce(s) Supporting Document(s) bedside glucose 39 mg/dL 70-105 Below low normal Bedside Glucos e ROMAN ([facility]) ID Date Data Source [id number] 03/21/2020 09:57:00 PM EST ROMAN ([facility]) Name Value Range Interpretation Code Description Data Kaye rce(s) Supporting Document(s) bedside glucose 39 mg/dL 70-105 Below low normal Bedside Glucos e ROMAN ([facility]) ID Date Data Source [id number] 03/21/2020 09:57:00 PM EST ROMAN ([facility]) Name Value Range Interpretation Code Description Data Kaye rce(s) Supporting Document(s) bedside glucose 39 mg/dL 70-105 Below low normal Bedside Glucos e ROMAN ([facility]) ID Date Data Source [id number] 03/21/2020 09:57:00 PM EST ROMAN ([facility]) Name Value Range Interpretation Code Description Data Kaye rce(s) Supporting Document(s) bedside glucose 39 mg/dL 70-105 Below low normal Bedside Glucos e ROMAN ([facility]) ID Date Data Source [id number] 03/21/2020 09:18:00 PM EST ROMAN ([facility]) Name Value Range Interpretation Code Description Data Kaye rce(s) Supporting Document(s) bedside glucose 42 mg/dL 70-105 Below low normal Bedside Glucos e ROMAN ([facility]) ID Date Data Source [id number] 03/21/2020 09:18:00 PM EST ROMAN ([facility]) Name Value Range Interpretation Code Description Data Kaye rce(s) Supporting Document(s) bedside glucose 42 mg/dL 70-105 Below low normal Bedside Glucos e ROMAN ([facility]) ID Date Data Source [id number] 03/21/2020 09:18:00 [facility] Name Value Range Interpretation Code Description Data Kaye rce(s) Supporting Document(s) bedside glucose 42 mg/dL 70-105 Below low normal Bedside Glucos e ROMAN ([facility]) ID Date Data Source [id number] 03/21/2020 09:18:00 PM EST ROMAN ([facility]) Name Value Range Interpretation Code Description Data Kaye rce(s) Supporting Document(s) bedside glucose 42 mg/dL 70-105 Below low normal Bedside Glucos e ROMAN ([facility]) ID Date Data Source [id number] 03/21/2020 09:18:00 PM EST ROMAN ([facility]) Name Value Range Interpretation Code Description Data Kaye rce(s) Supporting Document(s) bedside glucose 42 mg/dL 70-105 Below low normal Bedside Glucos e ROMAN ([facility]) ID Date Data Source [id number] 03/21/2020 09:18:00 PM EST ROMAN ([facility]) Name Value Range Interpretation Code Description Data Kaye rce(s) Supporting Document(s) bedside glucose 42 mg/dL 70-105 Below low normal Bedside Glucos e ROMAN ([facility]) ID Date Data Source [id number] 03/21/2020 05:46:00 PM EST ROMAN ([facility]) Name Value Range Interpretation Code Description Data Kaye rce(s) Supporting Document(s) bedside glucose 110 mg/dL 70-105 Above high normal Bedside Gluco se ROMAN ([facility]) ID Date Data Source [id number] 03/21/2020 05:46:00 PM EST ROMAN ([facility]) Name Value Range Interpretation Code Description Data Kaye rce(s) Supporting Document(s) bedside glucose 110 mg/dL 70-105 Above high normal Bedside Gluco se ROMAN ([facility]) ID Date Data Source [id number] 03/21/2020 05:46:00 PM EST ROMAN ([facility]) Name Value Range Interpretation Code Description Data Kaye rce(s) Supporting Document(s) bedside glucose 110 mg/dL 70-105 Above high normal Bedside Gluco se ROMAN ([facility]) ID Date Data Source [id number] 03/21/2020 05:46:00 PM EST ROMAN ([facility]) Name Value Range Interpretation Code Description Data Kaye rce(s) Supporting Document(s) bedside glucose 110 mg/dL 70-105 Above high normal Bedside Gluco se ROMAN ([facility]) ID Date Data Source [id number] 03/21/2020 05:46:00 PM EST ROMAN ([facility]) Name Value Range Interpretation Code Description Data Kaye rce(s) Supporting Document(s) bedside glucose 110 mg/dL 70-105 Above high normal Bedside Gluco se ROMAN ([facility]) ID Date Data Source [id number] 03/21/2020 05:46:00 PM EST ROMAN ([facility]) Name Value Range Interpretation Code Description Data Kaye rce(s) Supporting Document(s) bedside glucose 110 mg/dL 70-105 Above high normal Bedside Gluco se ROMAN ([facility]) ID Date Data Source [id number] 03/21/2020 05:40:00 PM EST ROMAN ([facility]) Name Value Range Interpretation Code Description Data Kaye rce(s) Supporting Document(s) bedside glucose confirmation 117 mg/dL less than 200 Bedside Glucose Confirmation [facility]) ID Date Data Source [id number] 03/21/2020 05:40:00 PM EST ROMAN ([facility]) Name Value Range Interpretation Code Description Data Kaye rce(s) Supporting Document(s) bedside glucose confirmation 117 mg/dL less than 200 Bedside Glucose Confirmation ROMAN ([facility]) ID Date Data Source [id number] 03/21/2020 05:40:00 PM EST ROMAN ([facility]) Name Value Range Interpretation Code Description Data Kaye rce(s) Supporting Document(s) bedside glucose confirmation 117 mg/dL less than 200 Bedside Glucose Confirmation ROMAN ([facility]) ID Date Data Source [id number] 03/21/2020 05:40:00 PM EST ROMAN ([facility]) Name Value Range Interpretation Code Description Data Kaye rce(s) Supporting Document(s) bedside glucose confirmation 117 mg/dL less than 200 Bedside Glucose Confirmation BRYAN ([facility]) ID Date Data Source [id number] 03/21/2020 05:40:00 PM EST ROMAN ([facility]) Name Value Range Interpretation Code Description Data Kaye rce(s) Supporting Document(s) bedside glucose confirmation 117 mg/dL less than 200 Bedside Glucose Confirmation ROMAN ([facility]) ID Date Data Source [id number] 03/21/2020 05:40:00 [facility] Name Value Range Interpretation Code Description Data Kaye rce(s) Supporting Document(s) bedside glucose confirmation 117 mg/dL less than 200 [facility] ID Date Data Source [id number] 03/21/2020 05:22:00 PM EST ROMAN ([facility]) Name Value Range Interpretation Code Description Data Kaye rce(s) Supporting Document(s) bedside glucose 26 mg/dL 70-105 Below low normal [facility] ID Date Data Source [id number] 03/21/2020 05:22:00 PM EST ROMAN ([facility]) Name Value Range Interpretation Code Description Data Kaye rce(s) Supporting Document(s) bedside glucose 26 mg/dL 70-105 Below low normal Bedside Glucos e ROMAN ([facility]) ID Date Data Source [id number] 03/21/2020 05:22:00 PM EST ROMAN ([facility]) Name Value Range Interpretation Code Description Data Kaye rce(s) Supporting Document(s) bedside glucose 26 mg/dL 70-105 Below low normal Bedside Glucos e ROMAN ([facility]) ID Date Data Source [id number] 03/21/2020 05:22:00 PM EST ROMAN ([facility]) Name Value Range Interpretation Code Description Data Kaye rce(s) Supporting Document(s) bedside glucose 26 mg/dL 70-105 Below low normal Bedside Glucos e ROMAN ([facility]) ID Date Data Source [id number] 03/21/2020 05:22:00 PM EST ROMAN ([facility]) Name Value Range Interpretation Code Description Data Kaye rce(s) Supporting Document(s) bedside glucose 26 mg/dL 70-105 Below low normal Bedside Glucos e ROMAN ([facility]) ID Date Data Source [id number] 03/21/2020 05:22:00 PM EST ROMAN ([facility]) Name Value Range Interpretation Code Description Data Kaye rce(s) Supporting Document(s) bedside glucose 26 mg/dL 70-105 Below low normal Bedside Glucos e ROMAN ([facility]) ID Date Data Source [id number] 03/21/2020 05:13:00 PM EST ROMAN ([facility]) Name Value Range Interpretation Code Description Data Kaye rce(s) Supporting Document(s) bedside glucose 37 mg/dL 70-105 Below low normal Bedside Glucos e ROMAN ([facility]) ID Date Data Source [id number] 03/21/2020 05:13:00 PM EST ROMAN ([facility]) Name Value Range Interpretation Code Description Data Kaye rce(s) Supporting Document(s) bedside glucose 37 mg/dL 70-105 Below low normal Bedside Glucos e ROMAN ([facility]) ID Date Data Source [id number] 03/21/2020 05:13:00 PM EST ROMAN ([facility]) Name Value Range Interpretation Code Description Data Kaye rce(s) Supporting Document(s) bedside glucose 37 mg/dL 70-105 Below low normal Bedside Glucos e ROMAN ([facility]) ID Date Data Source [id number] 03/21/2020 05:13:00 PM EST ROMAN ([facility]) Name Value Range Interpretation Code Description Data Kaye rce(s) Supporting Document(s) bedside glucose 37 mg/dL 70-105 Below low normal Bedside Glucos e ROMAN ([facility]) ID Date Data Source [id number] 03/21/2020 05:13:00 PM EST ROMAN ([facility]) Name Value Range Interpretation Code Description Data Kaye rce(s) Supporting Document(s) bedside glucose 37 mg/dL 70-105 Below low normal Bedside Glucos e ROMAN ([facility]) ID Date Data Source [id number] 03/21/2020 05:13:00 PM EST ROMAN ([facility]) Name Value Range Interpretation Code Description Data Kaye rce(s) Supporting Document(s) bedside glucose 37 mg/dL 70-105 Below low normal Bedside Glucos e ROMAN ([facility]) ID Date Data Source [id number] 03/21/2020 05:05:00 PM EST ROMAN ([facility]) Name Value Range Interpretation Code Description Data Kaye rce(s) Supporting Document(s) bedside glucose 32 mg/dL 70-105 Below low normal Bedside Glucos e ROMAN ([facility]) ID Date Data Source [id number] 03/21/2020 05:05:00 PM EST ROMAN ([facility]) Name Value Range Interpretation Code Description Data Kaye rce(s) Supporting Document(s) bedside glucose 32 mg/dL 70-105 Below low normal Bedside Glucos e ROMAN ([facility]) ID Date Data Source [id number] 03/21/2020 05:05:00 PM EST ROMAN ([facility]) Name Value Range Interpretation Code Description Data Kaye rce(s) Supporting Document(s) bedside glucose 32 mg/dL 70-105 Below low normal Bedside Glucos e ROMAN ([facility]) ID Date Data Source [id number] 03/21/2020 05:05:00 PM EST ROMAN ([facility]) Name Value Range Interpretation Code Description Data Kaye rce(s) Supporting Document(s) bedside glucose 32 mg/dL 70-105 Below low normal Bedside Glucos e ROMAN ([facility]) ID Date Data Source [id number] 03/21/2020 05:05:00 PM EST ROMAN ([facility]) Name Value Range Interpretation Code Description Data Kaye rce(s) Supporting Document(s) bedside glucose 32 mg/dL 70-105 Below low normal Bedside Glucos e ROMAN ([facility]) ID Date Data Source [id number] 03/21/2020 05:05:00 PM EST ROMAN ([facility]) Name Value Range Interpretation Code Description Data Kaye rce(s) Supporting Document(s) bedside glucose 32 mg/dL 70-105 Below low normal Bedside Glucos e ROMAN ([facility]) ID Date Data Source [id number] 03/21/2020 12:13:00 PM EST ROMAN ([facility]) Name Value Range Interpretation Code Description Data Kaye rce(s) Supporting Document(s) bedside glucose 157 mg/dL 70-105 Above high normal Bedside Gluco se ROMAN ([facility]) ID Date Data Source [id number] 03/21/2020 12:13:00 PM EST ROMAN ([facility]) Name Value Range Interpretation Code Description Data Kaye rce(s) Supporting Document(s) bedside glucose 157 mg/dL 70-105 Above high normal Bedside Gluco se ROMAN ([facility]) ID Date Data Source [id number] 03/21/2020 12:13:00 PM EST ROMAN ([facility]) Name Value Range Interpretation Code Description Data Kaye rce(s) Supporting Document(s) bedside glucose 157 mg/dL 70-105 Above high normal Bedside Gluco se ROMAN ([facility]) ID Date Data Source [id number] 03/21/2020 12:13:00 PM EST ROMAN ([facility]) Name Value Range Interpretation Code Description Data Kaye rce(s) Supporting Document(s) bedside glucose 157 mg/dL 70-105 Above high normal Bedside Gluco se ROMAN ([facility]) ID Date Data Source [id number] 03/21/2020 12:13:00 PM EST ROMAN ([facility]) Name Value Range Interpretation Code Description Data Kaye rce(s) Supporting Document(s) bedside glucose 157 mg/dL 70-105 Above high normal Bedside Gluco se ROMAN ([facility]) ID Date Data Source [id number] 03/21/2020 12:13:00 PM EST ROMAN ([facility]) Name Value Range Interpretation Code Description Data Kaye rce(s) Supporting Document(s) bedside glucose 157 mg/dL 70-105 Above high normal Bedside Gluco se ROMAN ([facility]) ID Date Data Source [id number] 03/21/2020 06:05:00 AM EST ROMAN ([facility]) Name Value Range Interpretation Code Description Data Kaye rce(s) Supporting Document(s) acetone/ketone > 46.00 <2.81 Above high normal Acetone/ketone ROMAN ([facility]) ID Date Data Source [id number] 03/21/2020 06:05:00 AM EST ROMAN ([facility]) Name Value Range Interpretation Code Description Data Kaye rce(s) Supporting Document(s) glucose, fasting 380 mg/dL 70-100 Above high normal Glucose, Fas ting ROMAN ([facility]) blood urea nitrogen 17 mg/dL 7-18 Blood Urea Nitro gen ROMAN ([facility]) creatinine for GFR 1.43 mg/dL 0.55-1.30 Above high normal Creatinine for GFR ROMAN ([facility]) glomerular filtration rate >58 Below low normal Beata merular Filtration Rate ROMAN ([facility]) potassium serum 4.3 mEq/L 3.5-5.1 Potassium Serum ATHE NA ([facility]) sodium level 133 mEq/L 136-145 Below low normal Sodium Level ATHE NA ([facility]) chloride level 104 mEq/L 98-107 Chloride Level ROMAN ([facility]) carbon dioxide level 14 mEq/L 21-32 Below low normal Carbon Di oxide Level ROMAN ([facility]) anion gap 15 mEq/L 8-16 Anion Gap ROMAN ([facility]) calcium level 8.8 mg/dL 8.5-10.1 Calcium Level ROMAN ( [facility]) AST/SGOT 9 U/L 7-37 AST/SGOT ROMAN ([facility]) alkaline phosphatase 68 U/L 45-117 Alkaline Phosph atase ROMAN ([facility]) ALT/SGPT 14 U/L 12-78 ALT/SGPT ROMAN ([facility]) bilirubin,total 0.5 mg/dL 0.2-1.0 Bilirubin,total ATHE ([facility]) total protein 6.4 gm/dL 6.4-8.2 Total Protein ROMAN ( [facility]) albumin 3.3 gm/dL 3.2-5.2 Albumin ROMAN ([facility]) albumin/globulin ratio 1.2-2.2 Below low normal Albumin /globulin Ratio ROMAN ([facility]) ID Date Data Source [id number] 03/21/2020 06:05:00 AM EST ROMAN ([facility]) Name Value Range Interpretation Code Description Data Kaye rce(s) Supporting Document(s) acetone/ketone > 46.00 <2.81 Above high normal Acetone/ketone ROMAN ([facility]) ID Date Data Source [id number] 03/21/2020 06:05:00 AM EST ROMAN ([facility]) Name Value Range Interpretation Code Description Data Kaye rce(s) Supporting Document(s) glucose, fasting 380 mg/dL 70-100 Above high normal Glucose, Fas ting ROMAN ([facility]) blood urea nitrogen 17 mg/dL 7-18 Blood Urea Nitro gen ROMAN ([facility]) creatinine for GFR 1.43 mg/dL 0.55-1.30 Above high normal Creatinine for GFR ROMAN ([facility]) glomerular filtration rate >58 Below low normal Beata merular Filtration Rate ROMAN ([facility]) sodium level 133 mEq/L 136-145 Below low normal Sodium Level ATHE NA ([facility]) potassium serum 4.3 mEq/L 3.5-5.1 Potassium Serum ATHE NA ([facility]) chloride level 104 mEq/L 98-107 Chloride Level ROMAN ([facility]) carbon dioxide level 14 mEq/L 21-32 Below low normal Carbon Di oxide Level [facility] ([facility] [facility] anion gap 15 mEq/L 8-16 Anion Gap ROMAN ([facility]) calcium level 8.8 mg/dL 8.5-10.1 Calcium Level ROMAN ( [facility]) AST/SGOT 9 U/L 7-37 AST/SGOT ROMAN ([facility]) ALT/SGPT 14 U/L 12-78 ALT/SGPT ROMAN ([facility]) alkaline phosphatase 68 U/L 45-117 Alkaline Phosph atase ROMAN ([facility]) bilirubin,total 0.5 mg/dL 0.2-1.0 Bilirubin,total ATHE NA ([facility]) total protein 6.4 gm/dL 6.4-8.2 Total Protein ROMAN ( [facility]) albumin 3.3 gm/dL 3.2-5.2 Albumin ROMAN ([facility]) albumin/globulin ratio 1.2-2.2 Below low normal Albumin /globulin Ratio ROMAN ([facility]) ID Date Data Source [id number] 03/21/2020 06:05:00 AM EST ROMAN ([facility]) Name Value Range Interpretation Code Description Data Kaye rce(s) Supporting Document(s) acetone/ketone > 46.00 <2.81 Above high normal Acetone/ketone ROMAN ([facility]) ID Date Data Source [id number] 03/21/2020 06:05:00 AM EST ROMAN ([facility]) Name Value Range Interpretation Code Description Data Kaye rce(s) Supporting Document(s) glucose, fasting 380 mg/dL 70-100 Above high normal Glucose, Fas ting ROMAN ([facility]) blood urea nitrogen 17 mg/dL 7-18 Blood Urea Nitro gen ROMAN ([facility]) creatinine for GFR 1.43 mg/dL 0.55-1.30 Above high normal Creatinine for GFR ROMAN ([facility]) glomerular filtration rate >58 Below low normal Beata merular Filtration Rate ROMAN ([facility]) sodium level 133 mEq/L 136-145 Below low normal Sodium Level ATHE NA ([facility]) potassium serum 4.3 mEq/L 3.5-5.1 Potassium Serum ATHE NA ([facility]) chloride level 104 mEq/L 98-107 Chloride Level ROMAN ([facility]) carbon dioxide level 14 mEq/L 21-32 Below low normal Carbon Di oxide Level ROMAN ([facility]) anion gap 15 mEq/L 8-16 Anion Gap ROMAN ([facility]) calcium level 8.8 mg/dL 8.5-10.1 Calcium Level ROMAN ( [facility]) AST/SGOT 9 U/L 7-37 AST/SGOT ROMAN ([facility]) ALT/SGPT 14 U/L 12-78 ALT/SGPT ROMAN ([facility]) bilirubin,total 0.5 mg/dL 0.2-1.0 Bilirubin,total ATHE ([facility]) alkaline phosphatase 68 U/L 45-117 Alkaline Phosph atase ROMAN ([facility]) total protein 6.4 gm/dL 6.4-8.2 Total Protein ROMAN ( [facility]) albumin 3.3 gm/dL 3.2-5.2 Albumin ROMAN ([facility]) albumin/globulin ratio 1.2-2.2 Below low normal Albumin /globulin Ratio ROMAN ([facility]) ID Date Data Source [id number] 03/21/2020 06:05:00 AM EST ROMAN ([facility]) Name Value Range Interpretation Code Description Data Kaye rce(s) Supporting Document(s) acetone/ketone > 46.00 <2.81 Above high normal Acetone/ketone ROMAN ([facility]) ID Date Data Source [id number] 03/21/2020 06:05:00 AM EST ROMAN ([facility]) Name Value Range Interpretation Code Description Data Kaye rce(s) Supporting Document(s) glucose, fasting 380 mg/dL 70-100 Above high normal Glucose, Fas ting ROMAN ([facility]) blood urea nitrogen 17 mg/dL 7-18 Blood Urea Nitro gen ROMAN ([facility]) creatinine for GFR 1.43 mg/dL 0.55-1.30 Above high normal Creatinine for GFR ROMAN ([facility]) glomerular filtration rate >58 Below low normal Beata merular Filtration Rate ROMAN ([facility]) sodium level 133 mEq/L 136-145 Below low normal Sodium Level ATHE NA ([facility]) chloride level 104 mEq/L 98-107 Chloride Level ROMAN ([facility]) potassium serum 4.3 mEq/L 3.5-5.1 Potassium Serum ATHE NA ([facility]) carbon dioxide level 14 mEq/L 21-32 Below low normal Carbon Di oxide Level ROMAN ([facility]) anion gap 15 mEq/L 8-16 Anion Gap ROMAN ([facility]) calcium level 8.8 mg/dL 8.5-10.1 Calcium Level ROMAN ( [facility]) AST/SGOT 9 U/L 7-37 AST/SGOT ROMAN ([facility]) ALT/SGPT 14 U/L 12-78 ALT/SGPT ROMAN ([facility]) alkaline phosphatase 68 U/L 45-117 Alkaline Phosph atase ROMAN ([facility]) bilirubin,total 0.5 mg/dL 0.2-1.0 Bilirubin,total ATHE ([facility]) total protein 6.4 gm/dL 6.4-8.2 Total Protein ROMAN ( [facility]) albumin 3.3 gm/dL 3.2-5.2 Albumin ROMAN ([facility]) albumin/globulin ratio 1.2-2.2 Below low normal Albumin /globulin Ratio ROMAN ([facility]) ID Date Data Source [id number] 03/21/2020 06:05:00 AM EST ROMAN ([facility]) Name Value Range Interpretation Code Description Data Kaye rce(s) Supporting Document(s) acetone/ketone > 46.00 <2.81 Above high normal Acetone/ketone ROMAN ([facility]) ID Date Data Source [id number] 03/21/2020 06:05:00 AM EST ROMAN ([facility]) Name Value Range Interpretation Code Description Data Kaye rce(s) Supporting Document(s) glucose, fasting 380 mg/dL 70-100 Above high normal Glucose, Fas ting ROMAN ([facility]) blood urea nitrogen 17 mg/dL 7-18 Blood Urea Nitro gen ROMAN ([facility]) creatinine for GFR 1.43 mg/dL 0.55-1.30 Above high normal Creatinine for GFR ROMAN ([facility]) glomerular filtration rate >58 Below low normal Beata merular Filtration Rate ROMAN ([facility]) sodium level 133 mEq/L 136-145 Below low normal Sodium Level ATHE ([facility]) potassium serum 4.3 mEq/L 3.5-5.1 Potassium Serum ATHE ([facility]) chloride level 104 mEq/L 98-107 Chloride Level ROMAN ([facility]) carbon dioxide level 14 mEq/L 21-32 Below low normal Carbon Di oxide Level ROMAN ([facility]) anion gap 15 mEq/L 8-16 Anion Gap ROMAN ([facility]) calcium level 8.8 mg/dL 8.5-10.1 Calcium Level ROMAN ( [facility]) AST/SGOT 9 U/L 7-37 AST/SGOT ROMNA ([facility]) ALT/SGPT 14 U/L 12-78 ALT/SGPT ROMAN ([facility]) alkaline phosphatase 68 U/L 45-117 Alkaline Phosph atase ROMAN ([facility]) bilirubin,total 0.5 mg/dL 0.2-1.0 Bilirubin,total ATHE NA ([facility]) total protein 6.4 gm/dL 6.4-8.2 Total Protein ROMAN ( [facility]) albumin 3.3 gm/dL 3.2-5.2 Albumin ROMAN ([facility]) albumin/globulin ratio 1.2-2.2 Below low normal Albumin /globulin Ratio ROMAN ([facility]) ID Date Data Source [id number] 03/21/2020 06:05:00 AM EST ROMAN ([facility]) Name Value Range Interpretation Code Description Data Kaye rce(s) Supporting Document(s) acetone/ketone > 46.00 <2.81 Above high normal Acetone/ketone BRYAN ([facility]) ID Date Data Source [id number] 03/21/2020 06:05:00 AM EST ROMAN ([facility]) Name Value Range Interpretation Code Description Data Kaye rce(s) Supporting Document(s) glucose, fasting 380 mg/dL 70-100 Above high normal Glucose, Fas ting ROMAN ([facility]) blood urea nitrogen 17 mg/dL 7-18 Blood Urea Nitro gen ROMAN ([facility]) creatinine for GFR 1.43 mg/dL 0.55-1.30 Above high normal Creatinine for GFR ROMAN ([facility]) glomerular filtration rate >58 Below low normal Beata merular Filtration Rate ROMAN ([facility]) sodium level 133 mEq/L 136-145 Below low normal Sodium Level ATHE ([facility]) potassium serum 4.3 mEq/L 3.5-5.1 Potassium Serum ATHE ([facility]) chloride level 104 mEq/L 98-107 Chloride Level BRYAN ([facility]) carbon dioxide level 14 mEq/L 21-32 Below low normal Carbon Di oxide Level ROMAN ([facility]) anion gap 15 mEq/L 8-16 Anion Gap ROMAN ([facility]) calcium level 8.8 mg/dL 8.5-10.1 Calcium Level ROMAN ( [facility]) AST/SGOT 9 U/L 7-37 AST/SGOT ROMAN ([facility]) ALT/SGPT 14 U/L 12-78 ALT/SGPT ROMAN ([facility]) alkaline phosphatase 68 U/L 45-117 Alkaline Phosph atase ROMAN ([facility]) bilirubin,total 0.5 mg/dL 0.2-1.0 Bilirubin,total ATHE ([facility]) albumin 3.3 gm/dL 3.2-5.2 Albumin BRYAN ([facility]) total protein 6.4 gm/dL 6.4-8.2 Total Protein ROMAN ( [facility]) albumin/globulin ratio 1.2-2.2 Below low normal Albumin /globulin Ratio ROMAN ([facility]) ID Date Data Source [id number] 03/20/2020 10:57:00 PM EST ROMAN ([facility]) Name Value Range Interpretation Code Description Data Kaye rce(s) Supporting Document(s) bedside glucose 204 mg/dL 70-105 Above high normal Bedside Gluco se ROMAN ([facility]) ID Date Data Source [id number] 03/20/2020 10:57:00 PM EST BRYAN ([facility]) Name Value Range Interpretation Code Description Data Kaye rce(s) Supporting Document(s) bedside glucose 204 mg/dL 70-105 Above high normal Bedside Gluco se ROMAN ([facility]) ID Date Data Source [id number] 03/20/2020 10:57:00 PM EST BRYAN ([facility]) Name Value Range Interpretation Code Description Data Kaye rce(s) Supporting Document(s) bedside glucose 204 mg/dL 70-105 Above high normal Bedside Gluco se ROMAN ([facility]) ID Date Data Source [id number] 03/20/2020 10:57:00 PM EST ROMAN ([facility]) Name Value Range Interpretation Code Description Data Kaye rce(s) Supporting Document(s) bedside glucose 204 mg/dL 70-105 Above high normal Bedside Gluco se ROMAN ([facility]) ID Date Data Source [id number] 03/20/2020 10:57:00 PM EST ROMAN ([facility]) Name Value Range Interpretation Code Description Data Kaye rce(s) Supporting Document(s) bedside glucose 204 mg/dL 70-105 Above high normal Bedside Gluco se ROMAN ([facility]) ID Date Data Source [id number] 03/20/2020 10:57:00 PM EST ROMAN ([facility]) Name Value Range Interpretation Code Description Data Kaye rce(s) Supporting Document(s) bedside glucose 204 mg/dL 70-105 Above high normal Bedside Gluco se ROMAN ([facility]) ID Date Data Source [id number] 03/20/2020 08:36:00 PM EST ROMAN ([facility]) Name Value Range Interpretation Code Description Data Kaye rce(s) Supporting Document(s) bedside glucose 163 mg/dL 70-105 Above high normal Bedside Gluco se ROMAN ([facility]) ID Date Data Source [id number] 03/20/2020 08:36:00 PM EST ROMAN ([facility]) Name Value Range Interpretation Code Description Data Kaye rce(s) Supporting Document(s) bedside glucose 163 mg/dL 70-105 Above high normal Bedside Gluco se ROMAN ([facility]) ID Date Data Source [id number] 03/20/2020 08:36:00 PM EST ROMAN ([facility]) Name Value Range Interpretation Code Description Data Kaye rce(s) Supporting Document(s) bedside glucose 163 mg/dL 70-105 Above high normal Bedside Gluco se ROMAN ([facility]) ID Date Data Source [id number] 03/20/2020 08:36:00 PM EST ROMAN ([facility]) Name Value Range Interpretation Code Description Data Kaye rce(s) Supporting Document(s) bedside glucose 163 mg/dL 70-105 Above high normal Bedside Gluco se ROMAN ([facility]) ID Date Data Source [id number] 03/20/2020 08:36:00 PM EST ROMAN ([facility]) Name Value Range Interpretation Code Description Data Kaye rce(s) Supporting Document(s) bedside glucose 163 mg/dL 70-105 Above high normal Bedside Gluco se ROMAN ([facility]) ID Date Data Source [id number] 03/20/2020 08:36:00 PM EST ROMAN ([facility]) Name Value Range Interpretation Code Description Data Kaye rce(s) Supporting Document(s) bedside glucose 163 mg/dL 70-105 Above high normal Bedside Gluco se ROMAN ([facility]) ID Date Data Source [id number] 03/20/2020 04:36:00 PM EST ROMAN ([facility]) Name Value Range Interpretation Code Description Data Kaye rce(s) Supporting Document(s) bedside glucose 144 mg/dL 70-105 Above high normal Bedside Gluco se ROMAN ([facility]) ID Date Data Source [id number] 03/20/2020 [facility] Name Value Range Interpretation Code Description Data Kaye rce(s) Supporting Document(s) bedside glucose 144 mg/dL 70-105 Above high normal [facility] ID Date Data Source [id number] 03/20/2020 04:36:00 PM EST ROMAN ([facility]) Name Value Range Interpretation Code Description Data Kaye rce(s) Supporting Document(s) bedside glucose 144 mg/dL 70-105 Above high normal [facility] ID Date Data Source [id number] 03/20/2020 04:36:00 PM EST ROMAN ([facility]) Name Value Range Interpretation Code Description Data Kaye rce(s) Supporting Document(s) bedside glucose 144 mg/dL 70-105 Above high normal Bedside Gluco se ROMAN ([facility]) ID Date Data Source [id number] 03/20/2020 04:36:00 PM EST ROMAN ([facility]) Name Value Range Interpretation Code Description Data Kaye rce(s) Supporting Document(s) bedside glucose 144 mg/dL 70-105 Above high normal Bedside Gluco se ROMAN ([facility]) ID Date Data Source [id number] 03/20/2020 04:36:00 PM EST ROMAN ([facility]) Name Value Range Interpretation Code Description Data Kaye rce(s) Supporting Document(s) bedside glucose 144 mg/dL 70-105 Above high normal Bedside Gluco se ROMAN ([facility]) ID Date Data Source [id number] 03/20/2020 11:51:00 AM EST ROMAN ([facility]) Name Value Range Interpretation Code Description Data Kaye rce(s) Supporting Document(s) bedside glucose 138 mg/dL 70-105 Above high normal Bedside Gluco se ROMAN ([facility]) ID Date Data Source [id number] 03/20/2020 11:51:00 AM EST ROMAN [facility]) Name Value Range Interpretation Code Description Data Kaye rce(s) Supporting Document(s) bedside glucose 138 mg/dL 70-105 Above high normal Bedside Gluco se ROMAN ([facility]) ID Date Data Source [id number] 03/20/2020 11:51:00 AM EST ROMAN ([facility]) Name Value Range Interpretation Code Description Data Kaye rce(s) Supporting Document(s) bedside glucose 138 mg/dL 70-105 Above high normal Bedside Gluco se ROMAN ([facility]) ID Date Data Source [id number] 03/20/2020 11:51:00 AM EST ROMAN ([facility]) Name Value Range Interpretation Code Description Data Kaye rce(s) Supporting Document(s) bedside glucose 138 mg/dL 70-105 Above high normal Bedside Gluco se ROMAN ([facility]) ID Date Data Source [id number] 03/20/2020 11:51:00 AM EST ROMAN ([facility]) Name Value Range Interpretation Code Description Data Kaye rce(s) Supporting Document(s) bedside glucose 138 mg/dL 70-105 Above high normal Bedside Gluco se ROMAN ([facility]) ID Date Data Source [id number] 03/20/2020 11:51:00 AM EST ROMAN ([facility]) Name Value Range Interpretation Code Description Data Kaye rce(s) Supporting Document(s) bedside glucose 138 mg/dL 70-105 Above high normal Bedside Gluco se BRYAN ([facility]) ID Date Data Source [id number] 03/20/2020 10:07:00 AM EST BRYAN ([facility]) Name Value Range Interpretation Code Description Data Kaye rce(s) Supporting Document(s) glucose, fasting 182 mg/dL 70-100 Above high normal Glucose, Fas ting ROMAN ([facility]) blood urea nitrogen 19 mg/dL 7-18 Above high normal Blood Ure a Nitrogen ROMAN ([facility]) creatinine for GFR 1.41 mg/dL 0.55-1.30 Above high normal Creatinine for GFR BRYAN ([facility]) glomerular filtration rate >58 Below low normal Beata merular Filtration Rate ROMAN ([facility]) sodium level 138 mEq/L 136-145 Sodium Level ROMAN ([facility]) potassium serum 3.8 mEq/L 3.5-5.1 Potassium Serum ATHE NA ([facility]) chloride level 110 mEq/L 98-107 Above high normal Chloride Level BRYAN ([facility]) carbon dioxide level 15 mEq/L 21-32 Below low normal Carbon Di oxide Level BRYAN ([facility]) anion gap 13 mEq/L 8-16 Anion Gap ROMAN ([facility]) AST/SGOT 10 U/L 7-37 AST/SGOT ROMAN ([facility]) calcium level 9.2 mg/dL 8.5-10.1 Calcium Level ROMAN ( [facility]) ALT/SGPT 17 U/L 12-78 ALT/SGPT ROMAN ([facility]) alkaline phosphatase 60 U/L 45-117 Alkaline Phosph atase ROMAN ([facility]) bilirubin,total 0.4 mg/dL 0.2-1.0 Bilirubin,total ATHE ([facility]) total protein 6.2 gm/dL 6.4-8.2 Below low normal Total Protein AT TRAM ([facility]) albumin 3.3 gm/dL 3.2-5.2 Albumin ROMAN ([facility]) albumin/globulin ratio 1.2-2.2 Below low normal Albumin /globulin Ratio ROMAN ([facility]) ID Date Data Source [id number] 03/20/2020 10:07:00 AM EST ROMAN ([facility]) Name Value Range Interpretation Code Description Data Kaye rce(s) Supporting Document(s) glucose, fasting 182 mg/dL 70-100 Above high normal Glucose, Fas ting ROMAN ([facility]) blood urea nitrogen 19 mg/dL 7-18 Above high normal Blood Ure a Nitrogen ROMAN ([facility]) creatinine for GFR 1.41 mg/dL 0.55-1.30 Above high normal Creatinine for GFR ROMAN ([facility]) glomerular filtration rate >58 Below low normal Beata merular Filtration Rate ROMAN ([facility]) potassium serum 3.8 mEq/L 3.5-5.1 Potassium Serum ATHE NA ([facility]) sodium level 138 mEq/L 136-145 Sodium Level ROMAN (No [facility]) chloride level 110 mEq/L 98-107 Above high normal Chloride Level ROMAN ([facility]) carbon dioxide level 15 mEq/L 21-32 Below low normal Carbon Di oxide Level ROMAN ([facility]) anion gap 13 mEq/L 8-16 Anion Gap ROMAN ([facility]) calcium level 9.2 mg/dL 8.5-10.1 Calcium Level ROMAN ( [facility]) AST/SGOT 10 U/L 7-37 AST/SGOT ROMAN ([facility]) ALT/SGPT 17 U/L 12-78 ALT/SGPT ROMAN ([facility]) alkaline phosphatase 60 U/L 45-117 Alkaline Phosph atase ROMAN ([facility]) total protein 6.2 gm/dL 6.4-8.2 Below low normal Total Protein AT TRAM ([facility]) bilirubin,total 0.4 mg/dL 0.2-1.0 Bilirubin,total ATHE ([facility]) albumin 3.3 gm/dL 3.2-5.2 Albumin ROMAN ([facility]) albumin/globulin ratio 1.2-2.2 Below low normal Albumin /globulin Ratio ROMAN ([facility]) ID Date Data Source [id number] 03/20/2020 10:07:00 AM EST ROMAN ([facility]) Name Value Range Interpretation Code Description Data Kaye rce(s) Supporting Document(s) glucose, fasting 182 mg/dL 70-100 Above high normal Glucose, Fas ting ROMAN ([facility]) creatinine for GFR 1.41 mg/dL 0.55-1.30 Above high normal Creatinine for GFR ROMAN ([facility]) blood urea nitrogen 19 mg/dL 7-18 Above high normal Blood Ure a Nitrogen ROMAN ([facility]) glomerular filtration rate >58 Below low normal Beata merular Filtration Rate ROMAN ([facility]) sodium level 138 mEq/L 136-145 Sodium Level ROMAN (No [facility]) potassium serum 3.8 mEq/L 3.5-5.1 Potassium Serum ATHE NA ([facility]) chloride level 110 mEq/L 98-107 Above high normal Chloride Level ROMAN ([facility]) carbon dioxide level 15 mEq/L 21-32 Below low normal Carbon Di oxide Level ROMAN ([facility]) anion gap 13 mEq/L 8-16 Anion Gap ROMAN ([facility]) calcium level 9.2 mg/dL 8.5-10.1 Calcium Level ROMAN ( [facility]) AST/SGOT 10 U/L 7-37 AST/SGOT ROMAN ([facility]) ALT/SGPT 17 U/L 12-78 ALT/SGPT ROMAN ([facility]) bilirubin,total 0.4 mg/dL 0.2-1.0 Bilirubin,total ATHE NA ([facility]) alkaline phosphatase 60 U/L 45-117 Alkaline Phosph atase ROMAN ([facility]) total protein 6.2 gm/dL 6.4-8.2 Below low normal Total Protein AT TRAM ([facility]) albumin/globulin ratio 1.2-2.2 Below low normal Albumin /globulin Ratio ROMAN ([facility]) albumin 3.3 gm/dL 3.2-5.2 Albumin ROMAN ([facility]) ID Date Data Source [id number] 03/20/2020 10:07:00 AM EST ROMAN ([facility]) Name Value Range Interpretation Code Description Data Kaye rce(s) Supporting Document(s) glucose, fasting 182 mg/dL 70-100 Above high normal Glucose, Fas ting ROMAN ([facility]) blood urea nitrogen 19 mg/dL 7-18 Above high normal Blood Ure a Nitrogen ROMAN ([facility]) creatinine for GFR 1.41 mg/dL 0.55-1.30 Above high normal Creatinine for GFR ROMAN ([facility]) glomerular filtration rate >58 Below low normal Beata merular Filtration Rate ROMAN ([facility]) sodium level 138 mEq/L 136-145 Sodium Level ROMAN ([facility]) potassium serum 3.8 mEq/L 3.5-5.1 Potassium Serum ATHE NA ([facility]) chloride level 110 mEq/L 98-107 Above high normal Chloride Level ROMAN ([facility]) carbon dioxide level 15 mEq/L 21-32 Below low normal Carbon Di oxide Level ROMAN ([facility]) anion gap 13 mEq/L 8-16 Anion Gap ROMAN ([facility]) calcium level 9.2 mg/dL 8.5-10.1 Calcium Level ROMAN ( [facility]) AST/SGOT 10 U/L 7-37 AST/SGOT ROMAN ([facility]) ALT/SGPT 17 U/L 12-78 ALT/SGPT ROMAN ([facility]) alkaline phosphatase 60 U/L 45-117 Alkaline Phosph atase ROMAN ([facility]) bilirubin,total 0.4 mg/dL 0.2-1.0 Bilirubin,total ATHE ([facility]) total protein 6.2 gm/dL 6.4-8.2 Below low normal Total Protein AT TRAM ([facility]) albumin 3.3 gm/dL 3.2-5.2 Albumin ROMAN ([facility]) albumin/globulin ratio 1.2-2.2 Below low normal Albumin /globulin Ratio ROMAN ([facility]) ID Date Data Source [id number] 03/20/2020 10:07:00 AM EST ROMAN ([facility]) Name Value Range Interpretation Code Description Data Kaye rce(s) Supporting Document(s) glucose, fasting 182 mg/dL 70-100 Above high normal Glucose, Fas ting ROMAN ([facility]) creatinine for GFR 1.41 mg/dL 0.55-1.30 Above high normal Creatinine for GFR ROMAN ([facility]) blood urea nitrogen 19 mg/dL 7-18 Above high normal Blood Ure a Nitrogen ROMAN ([facility]) glomerular filtration rate >58 Below low normal Beata merular Filtration Rate ROMAN ([facility]) sodium level 138 mEq/L 136-145 Sodium Level ROMAN ([facility]) potassium serum 3.8 mEq/L 3.5-5.1 Potassium Serum ATHE NA ([facility]) chloride level 110 mEq/L 98-107 Above high normal Chloride Level ROMAN ([facility]) carbon dioxide level 15 mEq/L 21-32 Below low normal Carbon Di oxide Level ROMAN ([facility]) anion gap 13 mEq/L 8-16 Anion Gap ROMAN ([facility]) calcium level 9.2 mg/dL 8.5-10.1 Calcium Level ROMAN ( [facility]) AST/SGOT 10 U/L 7-37 AST/SGOT ROMAN ([facility]) ALT/SGPT 17 U/L 12-78 ALT/SGPT ROMAN ([facility]) alkaline phosphatase 60 U/L 45-117 Alkaline Phosph atase ROMAN ([facility]) total protein 6.2 gm/dL 6.4-8.2 Below low normal Total Protein AT TRAM ([facility]) bilirubin,total 0.4 mg/dL 0.2-1.0 Bilirubin,total ATHE ([facility]) albumin 3.3 gm/dL 3.2-5.2 Albumin ROMAN ([facility]) albumin/globulin ratio 1.2-2.2 Below low normal Albumin /globulin Ratio ROMAN ([facility]) ID Date Data Source [id number] 03/20/2020 10:07:00 AM EST ROMAN ([facility]) Name Value Range Interpretation Code Description Data Kaye rce(s) Supporting Document(s) glucose, fasting 182 mg/dL 70-100 Above high normal Glucose, Fas ting ROMAN ([facility]) blood urea nitrogen 19 mg/dL 7-18 Above high normal Blood Ure a Nitrogen ROMAN ([facility]) creatinine for GFR 1.41 mg/dL 0.55-1.30 Above high normal Creatinine for GFR ROMAN ([facility]) glomerular filtration rate >58 Below low normal Beata merular Filtration Rate ROMAN ([facility]) sodium level 138 mEq/L 136-145 Sodium Level ROMAN ([facility]) potassium serum 3.8 mEq/L 3.5-5.1 Potassium Serum ATHE ([facility]) chloride level 110 mEq/L 98-107 Above high normal Chloride Level ROMAN ([facility]) carbon dioxide level 15 mEq/L 21-32 Below low normal Carbon Di oxide Level ROMAN ([facility]) anion gap 13 mEq/L 8-16 Anion Gap ROMAN ([facility]) calcium level 9.2 mg/dL 8.5-10.1 Calcium Level ROMAN ( [facility]) AST/SGOT 10 U/L 7-37 AST/SGOT ROMAN ([facility]) ALT/SGPT 17 U/L 12-78 ALT/SGPT ROMAN ([facility]) alkaline phosphatase 60 U/L 45-117 Alkaline Phosph atase ROMAN ([facility]) bilirubin,total 0.4 mg/dL 0.2-1.0 Bilirubin,total ATHE NA ([facility]) total protein 6.2 gm/dL 6.4-8.2 Below low normal Total Protein AT TRAM ([facility]) albumin 3.3 gm/dL 3.2-5.2 Albumin ROMAN ([facility]) albumin/globulin ratio 1.2-2.2 Below low normal Albumin /globulin Ratio ROMAN ([facility]) ID Date Data Source [id number] 03/20/2020 07:26:00 AM EST BRYAN ([facility]) Name Value Range Interpretation Code Description Data Kaye rce(s) Supporting Document(s) bedside glucose 352 mg/dL 70-105 Above high normal Bedside Gluco se [facility]) ID Date Data Source [id number] 03/20/2020 07:26:00 AM EST ROMAN ([facility]) Name Value Range Interpretation Code Description Data Kaye rce(s) Supporting Document(s) bedside glucose 352 mg/dL 70-105 Above high normal Bedside Gluco se BRYAN ([facility]) ID Date Data Source [id number] 03/20/2020 07:26:00 AM EST ROMAN ([facility]) Name Value Range Interpretation Code Description Data Kaye rce(s) Supporting Document(s) bedside glucose 352 mg/dL 70-105 Above high normal Bedside Gluco se ROMAN ([facility]) ID Date Data Source [id number] 03/20/2020 07:26:00 AM EST ROMAN ([facility]) Name Value Range Interpretation Code Description Data Kaye rce(s) Supporting Document(s) bedside glucose 352 mg/dL 70-105 Above high normal Bedside Gluco se ROMAN ([facility]) ID Date Data Source [id number] 03/20/2020 07:26:00 AM EST ROMAN ([facility]) Name Value Range Interpretation Code Description Data Kaye rce(s) Supporting Document(s) bedside glucose 352 mg/dL 70-105 Above high normal Bedside Gluco se ROMAN ([facility]) ID Date Data Source [id number] 03/20/2020 07:26[facility]00 [facility] Name Value Range Interpretation Code Description Data Kaye rce(s) Supporting Document(s) bedside glucose 352 mg/dL 70-105 Above high normal Bedside Gluco se BRYAN ([facility]) ID Date Data Source [id number] 03/20/2020 07:08:00 AM EST ROMAN ([facility]) Name Value Range Interpretation Code Description Data Kaye rce(s) Supporting Document(s) acetone/ketone > 46.00 <2.81 Above high normal Acetone/ketone [facility]) ID Date Data Source [id number] 03/20/2020 07:08:00 AM EST ROMAN ([facility]) Name Value Range Interpretation Code Description Data Kaye rce(s) Supporting Document(s) red blood count 3.36 10 4.00-5.40 Below low normal Red Blood Coun t ROMAN ([facility]) white blood count 11.3 10 4.0-10.0 Above high normal White Blood Count BRYAN ([facility]) hemoglobin 9.3 g/dL 12.0-15.5 Below low normal Hemoglobin BRYAN ( [facility]) hematocrit 29.1 % 36.0-47.0 Below low normal Hematocrit ROMAN ( [facility]) mean corpuscular hemoglobin 27.7 pg 27.0-33.0 Mean Cor puscular Hemoglobin ROMAN ([facility]) mean corpuscular volume 86.6 fL 80.0-96.0 Mean Corpusc ular Volume ROMAN ([facility]) mean corpuscular HGB conc 32.0 g/dL 32.0-36.5 Mean Corpu scular HGB Conc ROMAN ([facility]) platelet count, automated 239 10 150-450 Platelet C ount, Automated ROMAN ([facility]) red cell distribution width 15.7 % 11.5-14.5 Above high no rmal Red Cell Distribution Width ROMAN ([facility]) nucleated red blood cell % 0.0 % 0-0 Nucleated Red Blood Cell % ROMAN ([facility]) ID Date Data Source [id number] 03/20/2020 07:08:00 AM EST BRYAN ([facility]) Name Value Range Interpretation Code Description Data Kaye rce(s) Supporting Document(s) acetone/ketone > 46.00 <2.81 Above high normal Acetone/ketone BRYAN ([facility]) ID Date Data Source [id number] 03/20/2020 07:08:00 AM EST BRYAN ([facility]) Name Value Range Interpretation Code Description Data Kaye rce(s) Supporting Document(s) red blood count 3.36 10 4.00-5.40 Below low normal Red Blood Coun t ROMAN ([facility]) white blood count 11.3 10 4.0-10.0 Above high normal White Blood Count ROMAN ([facility]) hemoglobin 9.3 g/dL 12.0-15.5 Below low normal Hemoglobin ROMAN ( [facility]) hematocrit 29.1 % 36.0-47.0 Below low normal Hematocrit ROMAN ( [facility]) mean corpuscular volume 86.6 fL 80.0-96.0 Mean Corpusc ular Volume ROMAN ([facility]) mean corpuscular hemoglobin 27.7 pg 27.0-33.0 Mean Cor puscular Hemoglobin ROMAN ([facility]) mean corpuscular HGB conc 32.0 g/dL 32.0-36.5 Mean Corpu scular HGB Conc ROMAN ([facility]) red cell distribution width 15.7 % 11.5-14.5 Above high no rmal Red Cell Distribution Width ROMAN ([facility]) platelet count, automated 239 10 150-450 Platelet C ount, Automated ROMAN ([facility]) nucleated red blood cell % 0.0 % 0-0 Nucleated Red Blood Cell % BRYAN ([facility]) ID Date Data Source [id number] 03/20/2020 07:08:00 AM EST BRYAN ([facility]) Name Value Range Interpretation Code Description Data Kaye rce(s) Supporting Document(s) acetone/ketone > 46.00 <2.81 Above high normal Acetone/ketone BRYAN ([facility]) ID Date Data Source [id number] 03/20/2020 07:08:00 AM EST BRYAN ([facility]) Name Value Range Interpretation Code Description Data Kaye rce(s) Supporting Document(s) white blood count 11.3 10 4.0-10.0 Above high normal White Blood Count ROMAN ([facility]) red blood count 3.36 10 4.00-5.40 Below low normal Red Blood Coun t ROMAN ([facility]) hemoglobin 9.3 g/dL 12.0-15.5 Below low normal Hemoglobin ROMAN ( [facility]) hematocrit 29.1 % 36.0-47.0 Below low normal Hematocrit ROMAN ( [facility]) mean corpuscular volume 86.6 fL 80.0-96.0 Mean Corpusc ular Volume ROMAN ([facility]) mean corpuscular hemoglobin 27.7 pg 27.0-33.0 Mean Cor puscular Hemoglobin ROMAN ([facility]) red cell distribution width 15.7 % 11.5-14.5 Above high no rmal Red Cell Distribution Width ROMAN ([facility]) mean corpuscular HGB conc 32.0 g/dL 32.0-36.5 Mean Corpu scular HGB Conc BRYAN ([facility]) platelet count, automated 239 10 150-450 Platelet C ount, Automated ROMAN ([facility]) nucleated red blood cell % 0.0 % 0-0 Nucleated Red Blood Cell % ROMAN ([facility]) ID Date Data Source [id number] 03/20/2020 07:08:00 AM EST BRYAN ([facility]) Name Value Range Interpretation Code Description Data Kaye rce(s) Supporting Document(s) acetone/ketone > 46.00 <2.81 Above high normal Acetone/ketone BRYAN ([facility]) ID Date Data Source [id number] 03/20/2020 07:08:00 AM EST ROMAN ([facility]) Name Value Range Interpretation Code Description Data Kaye rce(s) Supporting Document(s) white blood count 11.3 10 4.0-10.0 Above high normal White Blood Count ROMAN ([facility]) red blood count 3.36 10 4.00-5.40 Below low normal Red Blood Coun t ROMAN ([facility]) hemoglobin 9.3 g/dL 12.0-15.5 Below low normal Hemoglobin ROMAN ( [facility]) mean corpuscular volume 86.6 fL 80.0-96.0 Mean Corpusc ular Volume ROMAN ([facility]) hematocrit 29.1 % 36.0-47.0 Below low normal Hematocrit ROMAN ( [facility]) mean corpuscular hemoglobin 27.7 pg 27.0-33.0 Mean Cor puscular Hemoglobin ROMAN ([facility]) mean corpuscular HGB conc 32.0 g/dL 32.0-36.5 Mean Corpu scular HGB Conc ROMAN ([facility]) red cell distribution width 15.7 % 11.5-14.5 Above high no rmal Red Cell Distribution Width ROMAN ([facility]) platelet count, automated 239 10 150-450 Platelet C ount, Automated ROMAN ([facility]) nucleated red blood cell % 0.0 % 0-0 Nucleated Red Blood Cell % ROMAN ([facility]) ID Date Data Source [id number] 03/20/2020 07:08:00 AM EST BRYAN ([facility]) Name Value Range Interpretation Code Description Data Kaye rce(s) Supporting Document(s) acetone/ketone > 46.00 <2.81 Above high normal Acetone/ketone BRYAN ([facility]) ID Date Data Source [id number] 03/20/2020 07:08:00 AM EST BRYAN ([facility]) Name Value Range Interpretation Code Description Data Kaye rce(s) Supporting Document(s) white blood count 11.3 10 4.0-10.0 Above high normal White Blood Count ROMAN ([facility]) red blood count 3.36 10 4.00-5.40 Below low normal Red Blood Coun t BRYAN ([facility]) hematocrit 29.1 % 36.0-47.0 Below low normal Hematocrit BRYAN ( [facility]) hemoglobin 9.3 g/dL 12.0-15.5 Below low normal Hemoglobin BRYAN ( [facility]) mean corpuscular volume 86.6 fL 80.0-96.0 Mean Corpusc ular Volume ROMAN ([facility]) mean corpuscular hemoglobin 27.7 pg 27.0-33.0 Mean Cor puscular Hemoglobin ROMAN ([facility]) mean corpuscular HGB conc 32.0 g/dL 32.0-36.5 Mean Corpu scular HGB Conc BRYAN ([facility]) red cell distribution width 15.7 % 11.5-14.5 Above high no rmal Red Cell Distribution Width ROMAN ([facility]) platelet count, automated 239 10 150-450 Platelet C ount, Automated ROMAN ([facility]) nucleated red blood cell % 0.0 % 0-0 Nucleated Red Blood Cell % ROMAN ([facility]) ID Date Data Source [id number] 03/20/2020 07:08:00 AM EST ROMAN ([facility]) Name Value Range Interpretation Code Description Data Kaye rce(s) Supporting Document(s) acetone/ketone > 46.00 <2.81 Above high normal Acetone/ketone ROMAN ([facility]) ID Date Data Source [id number] 03/20/2020 07:08:00 AM EST ROMAN ([facility]) Name Value Range Interpretation Code Description Data Kaye rce(s) Supporting Document(s) white blood count 11.3 10 4.0-10.0 Above high normal White Blood Count ROMAN ([facility]) red blood count 3.36 10 4.00-5.40 Below low normal Red Blood Coun t ROMAN ([facility]) hemoglobin 9.3 g/dL 12.0-15.5 Below low normal Hemoglobin ROMAN ( [facility]) hematocrit 29.1 % 36.0-47.0 Below low normal Hematocrit ROMAN ( [facility]) mean corpuscular volume 86.6 fL 80.0-96.0 Mean Corpusc ular Volume ROMAN ([facility]) mean corpuscular hemoglobin 27.7 pg 27.0-33.0 Mean Cor puscular Hemoglobin ROMAN ([facility]) mean corpuscular HGB conc 32.0 g/dL 32.0-36.5 Mean Corpu scular HGB Conc ROMAN ([facility]) red cell distribution width 15.7 % 11.5-14.5 Above high no rmal Red Cell Distribution Width ROMAN ([facility]) platelet count, automated 239 10 150-450 Platelet C ount, Automated ROMAN ([facility]) nucleated red blood cell % 0.0 % 0-0 Nucleated Red Blood Cell % ROMAN ([facility]) ID Date Data Source [id number] 03/20/2020 06:47:00 AM EST BRYAN ([facility]) Name Value Range Interpretation Code Description Data Kaye rce(s) Supporting Document(s) bedside glucose 352 mg/dL 70-105 Above high normal Bedside Gluco se BRYAN ([facility]) ID Date Data Source [id number] 03/20/2020 06:47:00 AM EST ROMAN ([facility]) Name Value Range Interpretation Code Description Data Kaye rce(s) Supporting Document(s) bedside glucose 352 mg/dL 70-105 Above high normal Bedside Gluco se BRYAN ([facility]) ID Date Data Source [id number] 03/20/2020 06:47:00 AM EST [facility]) Name Value Range Interpretation Code Description Data Kaye rce(s) Supporting Document(s) bedside glucose 352 mg/dL 70-105 Above high normal Bedside Gluco se [facility]) ID Date Data Source [id number] 03/20/2020 06:47:00 AM EST [facility]) Name Value Range Interpretation Code Description Data Kaye rce(s) Supporting Document(s) bedside glucose 352 mg/dL 70-105 Above high normal Bedside Gluco se [facility]) ID Date Data Source [id number] 03/20/2020 06:47:00 AM EST [facility]) Name Value Range Interpretation Code Description Data Kaye rce(s) Supporting Document(s) bedside glucose 352 mg/dL 70-105 Above high normal Bedside Gluco se [facility]) ID Date Data Source [id number] 03/20/2020 06:47:00 AM EST [facility]) Name Value Range Interpretation Code Description Data Kaye rce(s) Supporting Document(s) bedside glucose 352 mg/dL 70-105 Above high normal Bedside Gluco se ROMAN ([facility]) ID Date Data Source [id number] 03/19/2020 09:10:00 PM EST ROMAN ([facility]) Name Value Range Interpretation Code Description Data Kaye rce(s) Supporting Document(s) bedside glucose 119 mg/dL 70-105 Above high normal Bedside Gluco se ROMAN ([facility]) ID Date Data Source [id number] 03/19/2020 09:10:00 PM EST ROMAN ([facility]) Name Value Range Interpretation Code Description Data Kaye rce(s) Supporting Document(s) bedside glucose 119 mg/dL 70-105 Above high normal Bedside Gluco se BRYAN ([facility]) ID Date Data Source [id number] 03/19/2020 09:10:00 PM EST ROMAN ([facility]) Name Value Range Interpretation Code Description Data Kaye rce(s) Supporting Document(s) bedside glucose 119 mg/dL 70-105 Above high normal Bedside Gluco se BRYAN ([facility]) ID Date Data Source [id number] 03/19/2020 09:10:00 PM [facility] Name Value Range Interpretation Code Description Data Kaye rce(s) Supporting Document(s) bedside glucose 119 mg/dL 70-105 Above high normal Bedside Gluco se ROAMN ([facility]) ID Date Data Source [id number] 03/19/2020 09:10:00 PM EST ROMAN ([facility]) Name Value Range Interpretation Code Description Data Kaye rce(s) Supporting Document(s) bedside glucose 119 mg/dL 70-105 Above high normal Bedside Gluco se [facility]) ID Date Data Source [id number] 03/19/2020 09:10:00 PM EST ROMAN ([facility]) Name Value Range Interpretation Code Description Data Kaye rce(s) Supporting Document(s) bedside glucose 119 mg/dL 70-105 Above high normal Bedside Gluco se ROMAN ([facility]) ID Date Data Source [id number] 03/19/2020 04:58:00 PM EST ROMAN ([facility]) Name Value Range Interpretation Code Description Data Kaye rce(s) Supporting Document(s) bedside glucose 136 mg/dL 70-105 Above high normal Bedside Gluco se ROMAN ([facility]) ID Date Data Source [id number] 03/19/2020 04:58:00 PM EST ROMAN ([facility]) Name Value Range Interpretation Code Description Data Kaye rce(s) Supporting Document(s) bedside glucose 136 mg/dL 70-105 Above high normal Bedside Gluco se ROMAN ([facility]) ID Date Data Source [id number] 03/19/2020 04:58:00 PM EST ROMAN ([facility]) Name Value Range Interpretation Code Description Data Kaye rce(s) Supporting Document(s) bedside glucose 136 mg/dL 70-105 Above high normal Bedside Gluco se ROMAN ([facility]) ID Date Data Source [id number] 03/19/2020 04:58:00 PM EST ROMAN ([facility]) Name Value Range Interpretation Code Description Data Kaye rce(s) Supporting Document(s) bedside glucose 136 mg/dL 70-105 Above high normal Bedside Gluco se ROMAN ([facility]) ID Date Data Source [id number] 03/19/2020 04:58:00 PM EST ROMAN ([facility]) Name Value Range Interpretation Code Description Data Kaye rce(s) Supporting Document(s) bedside glucose 136 mg/dL 70-105 Above high normal Bedside Gluco se ROMAN ([facility]) ID Date Data Source [id number] 03/19/2020 04:58:00 PM EST ROMAN ([facility]) Name Value Range Interpretation Code Description Data Kaye rce(s) Supporting Document(s) bedside glucose 136 mg/dL 70-105 Above high normal Bedside Gluco se ROMAN ([facility]) ID Date Data Source [id number] 03/19/2020 11:56:00 AM EST ROMAN [facility]) Name Value Range Interpretation Code Description Data Kaye rce(s) Supporting Document(s) acetone/ketone 33.70 mg/dL <2.81 Above high normal Acetone/keton e [facility]) ID Date Data Source [id number] 03/19/2020 11:56:00 AM EST ROMAN ([facility]) Name Value Range Interpretation Code Description Data Kaye rce(s) Supporting Document(s) glucose, fasting 137 mg/dL 70-100 Above high normal Glucose, Fas ting ROMAN ([facility]) creatinine for GFR 1.42 mg/dL 0.55-1.30 Above high normal Creatinine for GFR BRYAN ([facility]) blood urea nitrogen 21 mg/dL 7-18 Above high normal Blood Ure a Nitrogen ROMAN ([facility]) glomerular filtration rate >58 Below low normal Beata merular Filtration Rate ROMAN ([facility]) potassium serum 3.7 mEq/L 3.5-5.1 Potassium Serum ATHE NA ([facility]) sodium level 139 mEq/L 136-145 Sodium Level ROMAN ([facility]) chloride level 112 mEq/L 98-107 Above high normal Chloride Level ROMAN ([facility]) carbon dioxide level 19 mEq/L 21-32 Below low normal Carbon Di oxide Level ROMAN ([facility]) anion gap 8 mEq/L 8-16 Anion Gap ROMAN ([facility]) calcium level 8.6 mg/dL 8.5-10.1 Calcium Level ROMAN ( [facility]) ID Date Data Source [id number] 03/19/2020 11:56:00 AM EST ROMAN ([facility]) Name Value Range Interpretation Code Description Data Kaye rce(s) Supporting Document(s) acetone/ketone 33.70 mg/dL <2.81 Above high normal Acetone/keton e ROMAN ([facility]) ID Date Data Source [id number] 03/19/2020 11:56:00 AM EST ROMAN ([facility]) Name Value Range Interpretation Code Description Data Kaye rce(s) Supporting Document(s) glucose, fasting 137 mg/dL 70-100 Above high normal Glucose, Fas ting ROMAN ([facility]) blood urea nitrogen 21 mg/dL 7-18 Above high normal Blood Ure a Nitrogen ROMAN ([facility]) creatinine for GFR 1.42 mg/dL 0.55-1.30 Above high normal Creatinine for GFR ROMAN ([facility]) glomerular filtration rate >58 Below low normal Beata merular Filtration Rate ROMAN ([facility]) potassium serum 3.7 mEq/L 3.5-5.1 Potassium Serum ATHE NA ([facility]) sodium level 139 mEq/L 136-145 Sodium Level ROMAN ([facility]) chloride level 112 mEq/L 98-107 Above high normal Chloride Level ROMAN ([facility]) carbon dioxide level 19 mEq/L 21-32 Below low normal Carbon Di oxide Level ROMAN ([facility]) anion gap 8 mEq/L 8-16 Anion Gap ROMAN ([facility]) calcium level 8.6 mg/dL 8.5-10.1 Calcium Level ROMAN ( [facility]) ID Date Data Source [id number] 03/19/2020 11:56:00 AM EST ROMAN ([facility]) Name Value Range Interpretation Code Description Data Kaye rce(s) Supporting Document(s) acetone/ketone 33.70 mg/dL <2.81 Above high normal Acetone/keton e ROMAN ([facility]) ID Date Data Source [id number] 03/19/2020 11:56:00 AM EST ROMAN ([facility]) Name Value Range Interpretation Code Description Data Kaye rce(s) Supporting Document(s) blood urea nitrogen 21 mg/dL 7-18 Above high normal Blood Ure a Nitrogen ROMAN ([facility]) glucose, fasting 137 mg/dL 70-100 Above high normal Glucose, Fas ting ROMAN ([facility]) creatinine for GFR 1.42 mg/dL 0.55-1.30 Above high normal Creatinine for GFR ROMAN ([facility]) sodium level 139 mEq/L 136-145 Sodium Level ROMAN ([facility]) glomerular filtration rate >58 Below low normal Beata merular Filtration Rate ROMAN ([facility]) potassium serum 3.7 mEq/L 3.5-5.1 Potassium Serum ATHE NA ([facility]) carbon dioxide level 19 mEq/L 21-32 Below low normal Carbon Di oxide Level ROMAN ([facility]) chloride level 112 mEq/L 98-107 Above high normal Chloride Level ROMAN ([facility]) anion gap 8 mEq/L 8-16 Anion Gap ROMAN ([facility]) calcium level 8.6 mg/dL 8.5-10.1 Calcium Level ROMAN ( [facility]) ID Date Data Source [id number] 03/19/2020 11:56:00 AM EST ROMAN ([facility]) Name Value Range Interpretation Code Description Data Kaye rce(s) Supporting Document(s) acetone/ketone 33.70 mg/dL <2.81 Above high normal Acetone/keton e ROMAN ([facility]) ID Date Data Source [id number] 03/19/2020 11:56:00 AM EST ROMAN ([facility]) Name Value Range Interpretation Code Description Data Kaye rce(s) Supporting Document(s) glucose, fasting 137 mg/dL 70-100 Above high normal Glucose, Fas ting BRYAN ([facility]) blood urea nitrogen 21 mg/dL 7-18 Above high normal Blood Ure a Nitrogen ROMAN ([facility]) creatinine for GFR 1.42 mg/dL 0.55-1.30 Above high normal Creatinine for GFR ROMAN ([facility]) glomerular filtration rate >58 Below low normal Beata merular Filtration Rate ROMAN ([facility]) sodium level 139 mEq/L 136-145 Sodium Level ROMAN ([facility]) potassium serum 3.7 mEq/L 3.5-5.1 Potassium Serum ATHE NA ([facility]) chloride level 112 mEq/L 98-107 Above high normal Chloride Level BRYAN ([facility]) carbon dioxide level 19 mEq/L 21-32 Below low normal Carbon Di oxide Level BRYAN ([facility]) anion gap 8 mEq/L 8-16 Anion Gap ROMAN ([facility]) calcium level 8.6 mg/dL 8.5-10.1 Calcium Level BRYAN ( [facility]) ID Date Data Source [id number] 03/19/2020 11:56:00 AM EST [facility]) Name Value Range Interpretation Code Description Data Kaye rce(s) Supporting Document(s) acetone/ketone 33.70 mg/dL <2.81 Above high normal Acetone/keton e ROMAN ([facility]) ID Date Data Source [id number] 03/19/2020 11:56:00 AM EST BRYAN ([facility]) Name Value Range Interpretation Code Description Data Kaye rce(s) Supporting Document(s) glucose, fasting 137 mg/dL 70-100 Above high normal Glucose, Fas ting BRYAN ([facility]) creatinine for GFR 1.42 mg/dL 0.55-1.30 Above high normal Creatinine for GFR ROMAN ([facility]) blood urea nitrogen 21 mg/dL 7-18 Above high normal Blood Ure a Nitrogen ROMAN ([facility]) glomerular filtration rate >58 Below low normal Beata merular Filtration Rate ROMAN ([facility]) sodium level 139 mEq/L 136-145 Sodium Level ROMAN ([facility]) potassium serum 3.7 mEq/L 3.5-5.1 Potassium Serum ATHE NA ([facility]) chloride level 112 mEq/L 98-107 Above high normal Chloride Level ROMAN ([facility]) carbon dioxide level 19 mEq/L 21-32 Below low normal Carbon Di oxide Level ROMAN ([facility]) anion gap 8 mEq/L 8-16 Anion Gap ROMAN ([facility]) calcium level 8.6 mg/dL 8.5-10.1 Calcium Level ROMAN ( [facility]) ID Date Data Source [id number] 03/19/2020 11:56:00 AM EST BRYAN ([facility]) Name Value Range Interpretation Code Description Data Kaye rce(s) Supporting Document(s) acetone/ketone 33.70 mg/dL <2.81 Above high normal Acetone/keton e ROMAN ([facility]) ID Date Data Source [id number] 03/19/2020 11:56:00 AM EST [facility]) Name Value Range Interpretation Code Description Data Kaye rce(s) Supporting Document(s) glucose, fasting 137 mg/dL 70-100 Above high normal Glucose, Fas ting ROMAN ([facility]) blood urea nitrogen 21 mg/dL 7-18 Above high normal Blood Ure a Nitrogen ROMAN ([facility]) creatinine for GFR 1.42 mg/dL 0.55-1.30 Above high normal Creatinine for GFR ROMAN ([facility]) glomerular filtration rate >58 Below low normal Beata merular Filtration Rate ROMAN ([facility]) sodium level 139 mEq/L 136-145 Sodium Level ROMAN ([facility]) potassium serum 3.7 mEq/L 3.5-5.1 Potassium Serum ATHE NA ([facility]) chloride level 112 mEq/L 98-107 Above high normal Chloride Level ROMAN ([facility]) carbon dioxide level 19 mEq/L 21-32 Below low normal Carbon Di oxide Level ROMAN ([facility]) anion gap 8 mEq/L 8-16 Anion Gap ROMAN ([facility]) calcium level 8.6 mg/dL 8.5-10.1 Calcium Level ROMAN ( [facility]) ID Date Data Source [id number] 03/19/2020 11:37:00 AM EST ROMAN ([facility]) Name Value Range Interpretation Code Description Data Kaye rce(s) Supporting Document(s) bedside glucose 137 mg/dL 70-105 Above high normal Bedside Gluco se ROMAN ([facility]) ID Date Data Source [id number] 03/19/2020 11:37:00 AM EST ORMAN ([facility]) Name Value Range Interpretation Code Description Data Kaye rce(s) Supporting Document(s) bedside glucose 137 mg/dL 70-105 Above high normal Bedside Gluco se ROMAN ([facility]) ID Date Data Source [id number] 03/19/2020 11:37:00 AM EST ROMAN ([facility]) Name Value Range Interpretation Code Description Data Kaye rce(s) Supporting Document(s) bedside glucose 137 mg/dL 70-105 Above high normal Bedside Gluco se ROMAN ([facility]) ID Date Data Source [id number] 03/19/2020 11:37:00 AM EST ROMAN ([facility]) Name Value Range Interpretation Code Description Data Kaye rce(s) Supporting Document(s) bedside glucose 137 mg/dL 70-105 Above high normal Bedside Gluco se ROMAN ([facility]) ID Date Data Source [id number] 03/19/2020 11[facility]37[facility] Name Value Range Interpretation Code Description Data Kaye rce(s) Supporting Document(s) bedside glucose 137 mg/dL 70-105 Above high normal Bedside Gluco se ROMAN ([facility]) ID Date Data Source [id number] 03/19/2020 11:37:00 AM EST ROMAN ([facility]) Name Value Range Interpretation Code Description Data Kaye rce(s) Supporting Document(s) bedside glucose 137 mg/dL 70-105 Above high normal Bedside Gluco se ROMAN ([facility]) ID Date Data Source [id number] 03/19/2020 05:56:00 AM EST ROMAN ([facility]) Name Value Range Interpretation Code Description Data Kaye rce(s) Supporting Document(s) bedside glucose 343 mg/dL 70-105 Above high normal Bedside Gluco se BRYAN ([facility]) ID Date Data Source [id number] 03/19/2020 05:56:00 AM EST [facility]) Name Value Range Interpretation Code Description Data Kaye rce(s) Supporting Document(s) bedside glucose 343 mg/dL 70-105 Above high normal [facility] ID Date Data Source [id number] 03/19/2020 05:56:00 AM EST ROMAN ([facility]) Name Value Range Interpretation Code Description Data Kaye rce(s) Supporting Document(s) bedside glucose 343 mg/dL 70-105 Above high normal Bedside Gluco se ROMAN ([facility]) ID Date Data Source [id number] 03/19/2020 05:56:00 AM [facility] Name Value Range Interpretation Code Description Data Kaye rce(s) Supporting Document(s) bedside glucose 343 mg/dL 70-105 Above high normal [facility] ID Date Data Source [id number] 03/19/2020 05:56:00 AM EST ROMAN ([facility]) Name Value Range Interpretation Code Description Data Kaye rce(s) Supporting Document(s) bedside glucose 343 mg/dL 70-105 Above high normal Bedside Gluco se ROMAN ([facility]) ID Date Data Source [id number] 03/19/2020 05:56:00 AM EST ROMAN ([facility]) Name Value Range Interpretation Code Description Data Kaye rce(s) Supporting Document(s) bedside glucose 343 mg/dL 70-105 Above high normal Bedside Gluco se ROMAN ([facility]) ID Date Data Source [id number] 03/18/2020 08:36:00 PM EST ROMAN ([facility]) Name Value Range Interpretation Code Description Data Kaye rce(s) Supporting Document(s) bedside glucose 199 mg/dL 70-105 Above high normal Bedside Gluco se BRYAN ([facility]) ID Date Data Source [id number] 03/18/2020 08:36:00 PM EST ROMAN ([facility]) Name Value Range Interpretation Code Description Data Kaye rce(s) Supporting Document(s) bedside glucose 199 mg/dL 70-105 Above high normal [facility] ID Date Data Source [id number] 03/18/2020 08:36:00 PM EST ROMAN ([facility]) Name Value Range Interpretation Code Description Data Kaye rce(s) Supporting Document(s) bedside glucose 199 mg/dL 70-105 Above high normal [facility] ID Date Data Source [id number] 03/18/2020 08:36:00 PM EST ROMAN ([facility]) Name Value Range Interpretation Code Description Data Kaye rce(s) Supporting Document(s) bedside glucose 199 mg/dL 70-105 Above high normal Bedside Gluco se ROMAN ([facility]) ID Date Data Source [id number] 03/18/2020 08:36:00 PM EST ROMAN ([facility]) Name Value Range Interpretation Code Description Data Kaye rce(s) Supporting Document(s) bedside glucose 199 mg/dL 70-105 Above high normal Bedside Gluco se ROMAN ([facility]) ID Date Data Source [id number] 03/18/2020 08:36:00 PM EST ROMAN ([facility]) Name Value Range Interpretation Code Description Data Kaye rce(s) Supporting Document(s) bedside glucose 199 mg/dL 70-105 Above high normal Bedside Gluco se ROMAN ([facility]) ID Date Data Source [id number] 03/18/2020 04:52:00 PM EST ROMAN ([facility]) Name Value Range Interpretation Code Description Data Kaye rce(s) Supporting Document(s) bedside glucose 94 mg/dL 70-105 Bedside Glucose ATHE NA ([facility]) ID Date Data Source [id number] 03/18/2020 04:52:00 PM [facility] Name Value Range Interpretation Code Description Data Kaye rce(s) Supporting Document(s) bedside glucose 94 mg/dL 70-105 Bedside Glucose ATHE NA ([facility]) ID Date Data Source [id number] 03/18/2020 04:52:00 PM EST ROMAN ([facility]) Name Value Range Interpretation Code Description Data Kaye rce(s) Supporting Document(s) bedside glucose 94 mg/dL 70-105 Bedside Glucose ATHE NA ([facility]) ID Date Data Source [id number] 03/18/2020 04:52:00 PM EST ROMAN ([facility]) Name Value Range Interpretation Code Description Data Kaye rce(s) Supporting Document(s) bedside glucose 94 mg/dL 70-105 Bedside Glucose ATHVanessa ORDOÑEZ ([facility]) ID Date Data Source [id number] 03/18/2020 04:52:00 PM EST ROMAN ([facility]) Name Value Range Interpretation Code Description Data Kaye rce(s) Supporting Document(s) bedside glucose 94 mg/dL 70-105 Bedside Glucose ATHE TIAGO ([facility]) ID Date Data Source [id number] 03/18/2020 04:52:00 PM EST ROMAN ([facility]) Name Value Range Interpretation Code Description Data Kaye rce(s) Supporting Document(s) bedside glucose 94 mg/dL 70-105 Bedside Glucose ATHVanessa ORDOÑEZ ([facility]) ID Date Data Source [id number] 03/18/2020 04:11:00 PM EST ROMAN ([facility]) Name Value Range Interpretation Code Description Data Kaye rce(s) Supporting Document(s) glucose, fasting 116 mg/dL 70-100 Above high normal Glucose, Fas ting ROMAN ([facility]) blood urea nitrogen 26 mg/dL 7-18 Above high normal Blood Ure a Nitrogen ROMAN ([facility]) creatinine for GFR 1.25 mg/dL 0.55-1.30 Creatinine for GF R ROMAN ([facility]) glomerular filtration rate >58 Glomerula r Filtration Rate ROMAN ([facility]) sodium level 140 mEq/L 136-145 Sodium Level ROMAN ([facility]) potassium serum 3.6 mEq/L 3.5-5.1 Potassium Serum ATHE ([facility]) chloride level 112 mEq/L 98-107 Above high normal Chloride Level BRYAN ([facility]) anion gap 10 mEq/L 8-16 Anion Gap ROMAN ([facility]) carbon dioxide level 18 mEq/L 21-32 Below low normal [facility] calcium level 7.7 mg/dL 8.5-10.1 Below low normal Calcium Level AT [facility] ([facility]) ID Date Data Source [id number] 03/18/2020 04:11:00 PM EST BRYAN ([facility]) Name Value Range Interpretation Code Description Data Kaye rce(s) Supporting Document(s) glucose, fasting 116 mg/dL 70-100 Above high normal Glucose, Fas ting ROMAN ([facility]) blood urea nitrogen 26 mg/dL 7-18 Above high normal Blood Ure a Nitrogen ROMAN ([facility]) glomerular filtration rate >58 Glomerula r Filtration Rate BRYAN ([facility]) creatinine for GFR 1.25 mg/dL 0.55-1.30 Creatinine for GF R BRYAN ([facility]) sodium level 140 mEq/L 136-145 Sodium Level ROMAN ([facility]) chloride level 112 mEq/L 98-107 Above high normal Chloride Level ROMAN ([facility]) potassium serum 3.6 mEq/L 3.5-5.1 Potassium Serum ATHE NA ([facility]) carbon dioxide level 18 mEq/L 21-32 Below low normal Carbon Di oxide Level BRYAN ([facility]) anion gap 10 mEq/L 8-16 Anion Gap ROMAN ([facility]) calcium level 7.7 mg/dL 8.5-10.1 Below low normal Calcium Level AT [facility] ([facility]) ID Date Data Source [id number] 03/18/2020 04:11:00 PM EST BRYAN ([facility]) Name Value Range Interpretation Code Description Data Kaye rce(s) Supporting Document(s) glucose, fasting 116 mg/dL 70-100 Above high normal Glucose, Fas ting BRYAN ([facility]) blood urea nitrogen 26 mg/dL 7-18 Above high normal Blood Ure a Nitrogen ROMAN ([facility]) creatinine for GFR 1.25 mg/dL 0.55-1.30 Creatinine for GF R ROMAN ([facility]) glomerular filtration rate >58 Glomerula r Filtration Rate ROMAN ([facility]) potassium serum 3.6 mEq/L 3.5-5.1 Potassium Serum ATHE NA ([facility]) sodium level 140 mEq/L 136-145 Sodium Level ROMAN ([facility]) chloride level 112 mEq/L 98-107 Above high normal Chloride Level ROMAN ([facility]) carbon dioxide level 18 mEq/L 21-32 Below low normal Carbon Di oxide Level ROMAN ([facility]) calcium level 7.7 mg/dL 8.5-10.1 Below low normal Calcium Level AT [facility] ([facility]) anion gap 10 mEq/L 8-16 Anion Gap ROMAN ([facility]) ID Date Data Source [id number] 03/18/2020 04:11:00 PM EST BRYAN ([facility]) Name Value Range Interpretation Code Description Data Kaye rce(s) Supporting Document(s) glucose, fasting 116 mg/dL 70-100 Above high normal Glucose, Fas ting ROMAN ([facility]) blood urea nitrogen 26 mg/dL 7-18 Above high normal Blood Ure a Nitrogen ROMAN ([facility]) creatinine for GFR 1.25 mg/dL 0.55-1.30 Creatinine for GF R ROMAN ([facility]) glomerular filtration rate >58 Glomerula r Filtration Rate ROMAN ([facility]) sodium level 140 mEq/L 136-145 Sodium Level ROMAN ([facility]) potassium serum 3.6 mEq/L 3.5-5.1 Potassium Serum ATHE NA ([facility]) chloride level 112 mEq/L 98-107 Above high normal Chloride Level ROMAN ([facility]) carbon dioxide level 18 mEq/L 21-32 Below low normal Carbon Di oxide Level ROMAN ([facility]) anion gap 10 mEq/L 8-16 Anion Gap ROMAN ([facility]) calcium level 7.7 mg/dL 8.5-10.1 Below low normal Calcium Level AT [facility] ([facility]) ID Date Data Source [id number] 03/18/2020 04:11:00 PM EST ROMAN ([facility]) Name Value Range Interpretation Code Description Data Kaye rce(s) Supporting Document(s) glucose, fasting 116 mg/dL 70-100 Above high normal Glucose, Fas ting ROMAN ([facility]) blood urea nitrogen 26 mg/dL 7-18 Above high normal Blood Ure a Nitrogen ROMAN ([facility]) glomerular filtration rate >58 Glomerula r Filtration Rate ROMAN ([facility]) creatinine for GFR 1.25 mg/dL 0.55-1.30 Creatinine for GF R ROMAN ([facility]) potassium serum 3.6 mEq/L 3.5-5.1 Potassium Serum ATHE NA ([facility]) sodium level 140 mEq/L 136-145 Sodium Level ROMAN ([facility]) chloride level 112 mEq/L 98-107 Above high normal Chloride Level BRYAN ([facility]) anion gap 10 mEq/L 8-16 Anion Gap ROMAN ([facility]) carbon dioxide level 18 mEq/L 21-32 Below low normal Carbon Di oxide Level BRYAN ([facility]) calcium level 7.7 mg/dL 8.5-10.1 Below low normal Calcium Level AT [facility] ([facility]) ID Date Data Source [id number] 03/18/2020 04:11:00 PM EST ROMAN ([facility]) Name Value Range Interpretation Code Description Data Kaye rce(s) Supporting Document(s) glucose, fasting 116 mg/dL 70-100 Above high normal Glucose, Fas ting ROMAN ([facility]) blood urea nitrogen 26 mg/dL 7-18 Above high normal Blood Ure a Nitrogen ROMAN ([facility]) creatinine for GFR 1.25 mg/dL 0.55-1.30 Creatinine for GF R ROMAN ([facility]) glomerular filtration rate >58 Glomerula r Filtration Rate ROMAN ([facility]) sodium level 140 mEq/L 136-145 Sodium Level ROMAN ([facility]) potassium serum 3.6 mEq/L 3.5-5.1 Potassium Serum ATHE NA ([facility]) carbon dioxide level 18 mEq/L 21-32 Below low normal Carbon Di oxide Level ROMAN ([facility]) chloride level 112 mEq/L 98-107 Above high normal Chloride Level ROMAN ([facility]) anion gap 10 mEq/L 8-16 Anion Gap ROMAN ([facility]) calcium level 7.7 mg/dL 8.5-10.1 Below low normal Calcium Level AT [facility] ([facility]) ID Date Data Source [id number] 03/18/2020 10:59:00 AM EST ROMAN ([facility]) Name Value Range Interpretation Code Description Data Kaye rce(s) Supporting Document(s) bedside glucose 195 mg/dL 70-105 Above high normal Bedside Gluco se BRYAN ([facility]) ID Date Data Source [id number] 03/18/2020 10:59:00 AM EST ROMAN ([facility]) Name Value Range Interpretation Code Description Data Kaye rce(s) Supporting Document(s) bedside glucose 195 mg/dL 70-105 Above high normal Bedside Gluco se ROMAN ([facility]) ID Date Data Source [id number] 03/18/2020 10:59:00 AM EST ROMAN ([facility]) Name Value Range Interpretation Code Description Data Kaye rce(s) Supporting Document(s) bedside glucose 195 mg/dL 70-105 Above high normal Bedside Gluco se ROMAN ([facility]) ID Date Data Source [id number] 03/18/2020 10:59:00 AM EST ROMAN ([facility]) Name Value Range Interpretation Code Description Data Kaye rce(s) Supporting Document(s) bedside glucose 195 mg/dL 70-105 Above high normal Bedside Gluco se ROMAN ([facility]) ID Date Data Source [id number] 03/18/2020 10:59:00 AM EST ROMAN ([facility]) Name Value Range Interpretation Code Description Data Kaye rce(s) Supporting Document(s) bedside glucose 195 mg/dL 70-105 Above high normal Bedside Gluco se ROMAN ([facility]) ID Date Data Source [id number] 03/18/2020 10:59:00 AM EST ROMAN ([facility]) Name Value Range Interpretation Code Description Data Kaye rce(s) Supporting Document(s) bedside glucose 195 mg/dL 70-105 Above high normal Bedside Gluco se ROMAN ([facility]) ID Date Data Source [id number] 03/18/2020 07:39:00 AM EST ROMAN ([facility]) Name Value Range Interpretation Code Description Data Kaye rce(s) Supporting Document(s) blood urea nitrogen 30 mg/dL 7-18 Above high normal Blood Ure a Nitrogen ROMAN ([facility]) glucose, fasting 67 mg/dL 70-100 Below low normal Glucose, Fast ing ROMAN ([facility]) glomerular filtration rate >58 Below low normal Beata merular Filtration Rate ROMAN ([facility]) creatinine for GFR 1.33 mg/dL 0.55-1.30 Above high normal Creatinine for GFR ROMAN ([facility]) sodium level 140 mEq/L 136-145 Sodium Level ROMAN ([facility]) chloride level 109 mEq/L 98-107 Above high normal Chloride Level ROMAN ([facility]) potassium serum 3.9 mEq/L 3.5-5.1 Potassium Serum ATHE NA ([facility]) carbon dioxide level 22 mEq/L 21-32 Carbon Dioxide Level ROMAN ([facility]) anion gap 9 mEq/L 8-16 Anion Gap ROMAN ([facility]) calcium level 8.0 mg/dL 8.5-10.1 Below low normal Calcium Level AT [facility]) ID Date Data Source [id number] 03/18/2020 07:39:00 AM EST ROMAN ([facility]) Name Value Range Interpretation Code Description Data Kaye rce(s) Supporting Document(s) white blood count 9.7 10 4.0-10.0 White Blood Count BRYAN ([facility]) red blood count 3.35 10 4.00-5.40 Below low normal Red Blood Coun t BRYAN ([facility]) hemoglobin 9.4 g/dL 12.0-15.5 Below low normal Hemoglobin BRYAN ( [facility]) hematocrit 28.8 % 36.0-47.0 Below low normal Hematocrit BRYAN ( [facility]) mean corpuscular volume 86.0 fL 80.0-96.0 Mean Corpusc ular Volume BRYAN ([facility]) mean corpuscular hemoglobin 28.1 pg 27.0-33.0 Mean Cor puscular Hemoglobin BRYAN ([facility]) mean corpuscular HGB conc 32.6 g/dL 32.0-36.5 Mean Corpu scular HGB Conc BRYAN ([facility]) platelet count, automated 270 10 150-450 Platelet C ount, Automated ROMAN ([facility]) red cell distribution width 15.9 % 11.5-14.5 Above high no rmal Red Cell Distribution Width BRYAN ([facility]) nucleated red blood cell % 0.0 % 0-0 Nucleated Red Blood Cell % BRYAN ([facility]) ID Date Data Source [id number] 03/18/2020 07:39:00 AM EST BRYAN ([facility]) Name Value Range Interpretation Code Description Data Kaye rce(s) Supporting Document(s) glucose, fasting 67 mg/dL 70-100 Below low normal Glucose, Fast ing ROMAN ([facility]) blood urea nitrogen 30 mg/dL 7-18 Above high normal Blood Ure a Nitrogen ROMAN ([facility]) creatinine for GFR 1.33 mg/dL 0.55-1.30 Above high normal Creatinine for GFR BRYAN ([facility]) glomerular filtration rate >58 Below low normal Beata merular Filtration Rate BRYAN ([facility]) potassium serum 3.9 mEq/L 3.5-5.1 Potassium Serum ATHE NA ([facility]) sodium level 140 mEq/L 136-145 Sodium Level ROMAN ([facility]) carbon dioxide level 22 mEq/L 21-32 Carbon Dioxide Level ROMAN ([facility]) chloride level 109 mEq/L 98-107 Above high normal Chloride Level ROMAN ([facility]) anion gap 9 mEq/L 8-16 Anion Gap ROMAN ([facility]) calcium level 8.0 mg/dL 8.5-10.1 Below low normal Calcium Level AT [facility]) ID Date Data Source [id number] 03/18/2020 07:39:00 AM EST [facility]) Name Value Range Interpretation Code Description Data Kaye rce(s) Supporting Document(s) white blood count 9.7 10 4.0-10.0 White Blood Count BRYAN ([facility]) red blood count 3.35 10 4.00-5.40 Below low normal Red Blood Coun t ROMAN ([facility]) hematocrit 28.8 % 36.0-47.0 Below low normal Hematocrit ROMAN ( [facility]) hemoglobin 9.4 g/dL 12.0-15.5 Below low normal Hemoglobin BRYAN ( [facility]) mean corpuscular volume 86.0 fL 80.0-96.0 Mean Corpusc ular Volume ROMAN ([facility]) mean corpuscular HGB conc 32.6 g/dL 32.0-36.5 Mean Corpu scular HGB Conc ROMAN ([facility]) mean corpuscular hemoglobin 28.1 pg 27.0-33.0 Mean Cor puscular Hemoglobin ROMAN ([facility]) platelet count, automated 270 10 150-450 [facility], [facility] red cell distribution width 15.9 % 11.5-14.5 Above high no rmal Red Cell Distribution Width ROMAN ([facility]) nucleated red blood cell % 0.0 % 0-0 Nucleated Red Blood Cell % BRYAN ([facility]) ID Date Data Source [id number] 03/18/2020 07:39:00 AM EST ROMAN ([facility]) Name Value Range Interpretation Code Description Data Kaye rce(s) Supporting Document(s) glucose, fasting 67 mg/dL 70-100 Below low normal Glucose, Fast ing ROMAN ([facility]) creatinine for GFR 1.33 mg/dL 0.55-1.30 Above high normal Creatinine for GFR ROMAN ([facility]) blood urea nitrogen 30 mg/dL 7-18 Above high normal Blood Ure a Nitrogen ROMAN ([facility]) glomerular filtration rate >58 Below low normal Beata merular Filtration Rate ROMAN ([facility]) sodium level 140 mEq/L 136-145 Sodium Level ROMAN ([facility]) potassium serum 3.9 mEq/L 3.5-5.1 Potassium Serum ATH NA ([facility]) chloride level 109 mEq/L 98-107 Above high normal Chloride Level BRYAN ([facility]) carbon dioxide level 22 mEq/L 21-32 Carbon Dioxide Level BRYAN ([facility]) anion gap 9 mEq/L 8-16 Anion Gap ROMAN ([facility]) calcium level 8.0 mg/dL 8.5-10.1 Below low normal Calcium Level AT [facility]) ID Date Data Source [id number] 03/18/2020 07:39:00 AM EST ROMAN ([facility]) Name Value Range Interpretation Code Description Data Kaye rce(s) Supporting Document(s) white blood count 9.7 10 4.0-10.0 White Blood Count BRYAN ([facility]) red blood count 3.35 10 4.00-5.40 Below low normal Red Blood Coun t ROMAN ([facility]) hematocrit 28.8 % 36.0-47.0 Below low normal Hematocrit ROMAN ( [facility]) hemoglobin 9.4 g/dL 12.0-15.5 Below low normal Hemoglobin BRYAN ( [facility]) mean corpuscular volume 86.0 fL 80.0-96.0 Mean Corpusc ular Volume ROMAN ([facility]) mean corpuscular hemoglobin 28.1 pg 27.0-33.0 Mean Cor puscular Hemoglobin BRYAN ([facility]) mean corpuscular HGB conc 32.6 g/dL 32.0-36.5 Mean Corpu scular HGB Conc ROMAN ([facility]) red cell distribution width 15.9 % 11.5-14.5 Above high no rmal Red Cell Distribution Width ROMAN ([facility]) platelet count, automated 270 10 150-450 Platelet C ount, Automated ROMAN ([facility]) nucleated red blood cell % 0.0 % 0-0 Nucleated Red Blood Cell % BRYAN ([facility]) ID Date Data Source [id number] 03/18/2020 07:39:00 AM EST [facility]) Name Value Range Interpretation Code Description Data Kaye rce(s) Supporting Document(s) glucose, fasting 67 mg/dL 70-100 Below low normal Glucose, Fast ing ROMAN ([facility]) blood urea nitrogen 30 mg/dL 7-18 Above high normal Blood Ure a Nitrogen BRYAN ([facility]) creatinine for GFR 1.33 mg/dL 0.55-1.30 Above high normal Creatinine for GFR BRYAN ([facility]) glomerular filtration rate >58 Below low normal Beata merular Filtration Rate ROMAN ([facility]) potassium serum 3.9 mEq/L 3.5-5.1 Potassium Serum ATH NA ([facility]) sodium level 140 mEq/L 136-145 Sodium Level ROMAN ([facility]) chloride level 109 mEq/L 98-107 Above high normal Chloride Level ROMAN ([facility]) carbon dioxide level 22 mEq/L 21-32 Carbon Dioxide Level BRYAN ([facility]) calcium level 8.0 mg/dL 8.5-10.1 Below low normal Calcium Level AT [facility] ([facility]) anion gap 9 mEq/L 8-16 Anion Gap BRYAN ([facility]) ID Date Data Source [id number] 03/18/2020 07:39:00 AM EST BRYAN ([facility]) Name Value Range Interpretation Code Description Data Kaye rce(s) Supporting Document(s) white blood count 9.7 10 4.0-10.0 White Blood Count BRYAN ([facility]) red blood count 3.35 10 4.00-5.40 Below low normal Red Blood Coun t BRYAN ([facility]) hematocrit 28.8 % 36.0-47.0 Below low normal Hematocrit BRYAN ( [facility]) hemoglobin 9.4 g/dL 12.0-15.5 Below low normal Hemoglobin BRYAN ( [facility]) mean corpuscular volume 86.0 fL 80.0-96.0 Mean Corpusc ular Volume BRYAN ([facility]) mean corpuscular hemoglobin 28.1 pg 27.0-33.0 Mean Cor puscular Hemoglobin BRYAN ([facility]) mean corpuscular HGB conc 32.6 g/dL 32.0-36.5 Mean Corpu scular HGB Conc BRYAN ([facility]) red cell distribution width 15.9 % 11.5-14.5 Above high no rmal Red Cell Distribution Width BRYAN ([facility]) nucleated red blood cell % 0.0 % 0-0 Nucleated Red Blood Cell % BRYAN ([facility]) platelet count, automated 270 10 150-450 Platelet C ount, Automated [facility]) ID Date Data Source [id number] 03/18/2020 07:39:00 AM EST BRYAN ([facility]) Name Value Range Interpretation Code Description Data Kaye rce(s) Supporting Document(s) glucose, fasting 67 mg/dL 70-100 Below low normal Glucose, Fast ing BRYAN ([facility]) creatinine for GFR 1.33 mg/dL 0.55-1.30 Above high normal Creatinine for GFR BRYAN ([facility]) blood urea nitrogen 30 mg/dL 7-18 Above high normal Blood Ure a Nitrogen BRYAN ([facility]) glomerular filtration rate >58 Below low normal Beata merular Filtration Rate ROMAN ([facility]) sodium level 140 mEq/L 136-145 Sodium Level ROMAN ([facility]) potassium serum 3.9 mEq/L 3.5-5.1 Potassium Serum ATHE NA ([facility]) carbon dioxide level 22 mEq/L 21-32 Carbon Dioxide Level ROMAN ([facility]) chloride level 109 mEq/L 98-107 Above high normal Chloride Level ROMAN ([facility]) anion gap 9 mEq/L 8-16 Anion Gap ROMAN ([facility]) calcium level 8.0 mg/dL 8.5-10.1 Below low normal Calcium Level AT [facility]) ID Date Data Source [id number] 03/18/2020 07:39:00 AM EST [facility]) Name Value Range Interpretation Code Description Data Kaye rce(s) Supporting Document(s) red blood count 3.35 10 4.00-5.40 Below low normal Red Blood Coun t BRYAN ([facility]) white blood count 9.7 10 4.0-10.0 White Blood Count BRYAN ([facility]) hemoglobin 9.4 g/dL 12.0-15.5 Below low normal Hemoglobin ROMAN ( [facility]) hematocrit 28.8 % 36.0-47.0 Below low normal Hematocrit BRYAN ( [facility]) mean corpuscular volume 86.0 fL 80.0-96.0 Mean Corpusc ular Volume ROMAN ([facility]) mean corpuscular hemoglobin 28.1 pg 27.0-33.0 Mean Cor puscular Hemoglobin ROMAN ([facility]) mean corpuscular HGB conc 32.6 g/dL 32.0-36.5 Mean Corpu scular HGB Conc ROMAN ([facility]) red cell distribution width 15.9 % 11.5-14.5 Above high no rmal Red Cell Distribution Width ROMAN ([facility]) platelet count, automated 270 10 150-450 Platelet C ount, Automated ROMAN ([facility]) nucleated red blood cell % 0.0 % 0-0 Nucleated Red Blood Cell % ROMAN ([facility]) ID Date Data Source [id number] 03/18/2020 07:39:00 AM EST ROMAN ([facility]) Name Value Range Interpretation Code Description Data Kaye rce(s) Supporting Document(s) glucose, fasting 67 mg/dL 70-100 Below low normal Glucose, Fast ing ROMAN ([facility]) blood urea nitrogen 30 mg/dL 7-18 Above high normal Blood Ure a Nitrogen ROMAN ([facility]) creatinine for GFR 1.33 mg/dL 0.55-1.30 Above high normal Creatinine for GFR ROMAN ([facility]) glomerular filtration rate >58 Below low normal Beata merular Filtration Rate ROMAN ([facility]) sodium level 140 mEq/L 136-145 Sodium Level ROMAN ([facility]) chloride level 109 mEq/L 98-107 Above high normal Chloride Level ROMAN ([facility]) potassium serum 3.9 mEq/L 3.5-5.1 Potassium Serum ATHE NA ([facility]) carbon dioxide level 22 mEq/L 21-32 Carbon Dioxide Level BRYAN ([facility]) anion gap 9 mEq/L 8-16 Anion Gap ROMAN ([facility]) calcium level 8.0 mg/dL 8.5-10.1 Below low normal Calcium Level AT [facility] ([facility]) ID Date Data Source [id number] 03/18/2020 07:39:00 AM EST ROMAN ([facility]) Name Value Range Interpretation Code Description Data Kaye rce(s) Supporting Document(s) white blood count 9.7 10 4.0-10.0 White Blood Count ROMAN ([facility]) red blood count 3.35 10 4.00-5.40 Below low normal Red Blood Coun t ROMAN ([facility]) hemoglobin 9.4 g/dL 12.0-15.5 Below low normal Hemoglobin BRYAN ( [facility]) hematocrit 28.8 % 36.0-47.0 Below low normal Hematocrit ROMAN ( [facility]) mean corpuscular volume 86.0 fL 80.0-96.0 Mean Corpusc ular Volume ROMAN ([facility]) mean corpuscular hemoglobin 28.1 pg 27.0-33.0 Mean Cor puscular Hemoglobin ROMAN ([facility]) mean corpuscular HGB conc 32.6 g/dL 32.0-36.5 Mean Corpu scular HGB Conc ROMAN ([facility]) red cell distribution width 15.9 % 11.5-14.5 Above high no rmal Red Cell Distribution Width ROMAN ([facility]) platelet count, automated 270 10 150-450 Platelet C ount, Automated ROMAN ([facility]) nucleated red blood cell % 0.0 % 0-0 Nucleated Red Blood Cell % BRYAN ([facility]) ID Date Data Source [id number] 03/18/2020 07:01:00 AM EST ROMAN ([facility]) Name Value Range Interpretation Code Description Data Kaye rce(s) Supporting Document(s) bedside glucose 57 mg/dL 70-105 Below low normal Bedside Glucos e ROMAN ([facility]) ID Date Data Source [id number] 03/18/2020 07:01:00 [facility] Name Value Range Interpretation Code Description Data Kaye rce(s) Supporting Document(s) bedside glucose 57 mg/dL 70-105 Below low normal Bedside Glucos e ROMAN ([facility]) ID Date Data Source [id number] 03/18/2020 07:01:00 AM EST ROMAN ([facility]) Name Value Range Interpretation Code Description Data Kaye rce(s) Supporting Document(s) bedside glucose 57 mg/dL 70-105 Below low normal Bedside Glucos e ROMAN ([facility]) ID Date Data Source [id number] 03/18/2020 07:01:00 AM EST ROMAN ([facility]) Name Value Range Interpretation Code Description Data Kaye rce(s) Supporting Document(s) bedside glucose 57 mg/dL 70-105 Below low normal Bedside Glucos e ROMAN ([facility]) ID Date Data Source [id number] 03/18/2020 07:01:00 AM EST ROMAN ([facility]) Name Value Range Interpretation Code Description Data Kaye rce(s) Supporting Document(s) bedside glucose 57 mg/dL 70-105 Below low normal Bedside Glucos e ROMAN ([facility]) ID Date Data Source [id number] 03/18/2020 07:01:00 AM EST ROMAN ([facility]) Name Value Range Interpretation Code Description Data Kaye rce(s) Supporting Document(s) bedside glucose 57 mg/dL 70-105 Below low normal Bedside Glucos e ROMAN ([facility]) ID Date Data Source [id number] 03/18/2020 01:02:00 AM EST ROMAN ([facility]) Name Value Range Interpretation Code Description Data Kaye rce(s) Supporting Document(s) glucose, fasting 292 mg/dL 70-100 Above high normal Glucose, Fas ting ROMAN ([facility]) blood urea nitrogen 36 mg/dL 7-18 Above high normal Blood Ure a Nitrogen ROMAN ([facility]) creatinine for GFR 1.39 mg/dL 0.55-1.30 Above high normal Creatinine for GFR ROMAN ([facility]) glomerular filtration rate >58 Below low normal Beata merular Filtration Rate ROMAN ([facility]) sodium level 138 mEq/L 136-145 Sodium Level ROMAN ([facility]) potassium serum 4.3 mEq/L 3.5-5.1 Potassium Serum ATHE NA ([facility]) chloride level 106 mEq/L 98-107 Chloride Level ROMAN ([facility]) carbon dioxide level 16 mEq/L 21-32 Below low normal Carbon Di oxide Level ROMAN ([facility]) anion gap 16 mEq/L 8-16 Anion Gap ROMAN ([facility]) calcium level 8.3 mg/dL 8.5-10.1 Below low normal Calcium Level AT [facility]) ID Date Data Source [id number] 03/18/2020 01:02:00 AM EST BRYAN ([facility]) Name Value Range Interpretation Code Description Data Kaye rce(s) Supporting Document(s) glucose, fasting 292 mg/dL 70-100 Above high normal Glucose, Fas ting BRYAN ([facility]) blood urea nitrogen 36 mg/dL 7-18 Above high normal Blood Ure a Nitrogen BRYAN ([facility]) creatinine for GFR 1.39 mg/dL 0.55-1.30 Above high normal Creatinine for GFR BRYAN ([facility]) sodium level 138 mEq/L 136-145 Sodium Level ROMAN ([facility]) glomerular filtration rate >58 Below low normal Beata merular Filtration Rate BRYAN ([facility]) potassium serum 4.3 mEq/L 3.5-5.1 Potassium Serum ATH NA ([facility]) chloride level 106 mEq/L 98-107 Chloride Level BRYAN ([facility]) carbon dioxide level 16 mEq/L 21-32 Below low normal Carbon Di oxide Level BRYAN ([facility]) anion gap 16 mEq/L 8-16 Anion Gap ROMAN ([facility]) calcium level 8.3 mg/dL 8.5-10.1 Below low normal Calcium Level AT [facility] ([facility]) ID Date Data Source [id number] 03/18/2020 01:02:00 AM EST BRYAN ([facility]) Name Value Range Interpretation Code Description Data Kaye rce(s) Supporting Document(s) glucose, fasting 292 mg/dL 70-100 Above high normal Glucose, Fas ting BRYAN ([facility]) blood urea nitrogen 36 mg/dL 7-18 Above high normal Blood Ure a Nitrogen ROMAN ([facility]) glomerular filtration rate >58 Below low normal Beata merular Filtration Rate ROMAN ([facility]) creatinine for GFR 1.39 mg/dL 0.55-1.30 Above high normal Creatinine for GFR ROMAN ([facility]) potassium serum 4.3 mEq/L 3.5-5.1 Potassium Serum ATHE NA ([facility]) sodium level 138 mEq/L 136-145 Sodium Level ROMAN ([facility]) chloride level 106 mEq/L 98-107 Chloride Level ROMAN ([facility]) anion gap 16 mEq/L 8-16 Anion Gap ROMAN ([facility]) carbon dioxide level 16 mEq/L 21-32 Below low normal Carbon Di oxide Level ROMAN ([facility]) calcium level 8.3 mg/dL 8.5-10.1 Below low normal Calcium Level AT [facility] ([facility]) ID Date Data Source [id number] 03/18/2020 01:02:00 AM EST BRYAN ([facility]) Name Value Range Interpretation Code Description Data Kaye rce(s) Supporting Document(s) glucose, fasting 292 mg/dL 70-100 Above high normal Glucose, Fas ting ROMAN ([facility]) blood urea nitrogen 36 mg/dL 7-18 Above high normal Blood Ure a Nitrogen ROMAN ([facility]) creatinine for GFR 1.39 mg/dL 0.55-1.30 Above high normal Creatinine for GFR ROMAN ([facility]) sodium level 138 mEq/L 136-145 Sodium Level ROMAN ([facility]) glomerular filtration rate >58 Below low normal Beata merular Filtration Rate ROMAN ([facility]) potassium serum 4.3 mEq/L 3.5-5.1 Potassium Serum ATHE NA ([facility]) chloride level 106 mEq/L 98-107 Chloride Level ROMAN ([facility]) carbon dioxide level 16 mEq/L 21-32 Below low normal Carbon Di oxide Level ROMAN ([facility]) anion gap 16 mEq/L 8-16 Anion Gap ROMAN ([facility]) calcium level 8.3 mg/dL 8.5-10.1 Below low normal Calcium Level AT [facility]) ID Date Data Source [id number] 03/18/2020 01:02:00 AM EST ROMAN ([facility]) Name Value Range Interpretation Code Description Data Kaye rce(s) Supporting Document(s) glucose, fasting 292 mg/dL 70-100 Above high normal Glucose, Fas ting BRYAN ([facility]) creatinine for GFR 1.39 mg/dL 0.55-1.30 Above high normal Creatinine for GFR ROMAN ([facility]) blood urea nitrogen 36 mg/dL 7-18 Above high normal Blood Ure a Nitrogen ROMAN ([facility]) glomerular filtration rate >58 Below low normal Beata merular Filtration Rate BRYAN ([facility]) potassium serum 4.3 mEq/L 3.5-5.1 Potassium Serum ATH NA ([facility]) sodium level 138 mEq/L 136-145 Sodium Level BRYAN ([facility]) chloride level 106 mEq/L 98-107 Chloride Level BRYAN ([facility]) carbon dioxide level 16 mEq/L 21-32 Below low normal Carbon Di oxide Level BRYAN ([facility]) anion gap 16 mEq/L 8-16 Anion Gap BRYAN ([facility]) calcium level 8.3 mg/dL 8.5-10.1 Below low normal Calcium Level AT [facility]) ID Date Data Source [id number] 03/18/2020 01:02:00 AM EST ROMAN ([facility]) Name Value Range Interpretation Code Description Data Kaye rce(s) Supporting Document(s) glucose, fasting 292 mg/dL 70-100 Above high normal Glucose, Fas ting BRYAN ([facility]) blood urea nitrogen 36 mg/dL 7-18 Above high normal [facility] creatinine for GFR 1.39 mg/dL 0.55-1.30 Above high normal Creatinine for GFR ROMAN ([facility]) glomerular filtration rate >58 Below low normal Beata merular Filtration Rate ROMAN ([facility]) potassium serum 4.3 mEq/L 3.5-5.1 Potassium Serum ATHE NA ([facility]) sodium level 138 mEq/L 136-145 Sodium Level ROMAN ([facility]) chloride level 106 mEq/L 98-107 Chloride Level ROMAN ([facility]) carbon dioxide level 16 mEq/L 21-32 Below low normal Carbon Di oxide Level ROMAN ([facility]) anion gap 16 mEq/L 8-16 Anion Gap ROMAN ([facility]) calcium level 8.3 mg/dL 8.5-10.1 Below low normal Calcium Level AT [facility] ([facility]) ID Date Data Source [id number] 03/18/2020 12:00:00 AM EST [facility]) Name Value Range Interpretation Code Description Data Kaye rce(s) Supporting Document(s) bedside glucose 282 mg/dL 70-105 Above high normal Bedside Gluco se [facility]) ID Date Data Source [id number] 03/18/2020 12:00:00 AM EST [facility]) Name Value Range Interpretation Code Description Data Kaye rce(s) Supporting Document(s) bedside glucose 282 mg/dL 70-105 Above high normal Bedside Gluco se [facility]) ID Date Data Source [id number] 03/18/2020 12:00:00 AM [facility] Name Value Range Interpretation Code Description Data Kaye rce(s) Supporting Document(s) bedside glucose 282 mg/dL 70-105 Above high normal Bedside Gluco se [facility]) ID Date Data Source [id number] 03/18/2020 12:00:00 AM EST [facility]) Name Value Range Interpretation Code Description Data Kaye rce(s) Supporting Document(s) bedside glucose 282 mg/dL 70-105 Above high normal Bedside Gluco se ROMAN ([facility]) ID Date Data Source [id number] 03/18/2020 12:00:00 AM EST ROMAN ([facility]) Name Value Range Interpretation Code Description Data Kaye rce(s) Supporting Document(s) bedside glucose 282 mg/dL 70-105 Above high normal Bedside Gluco se ROMAN ([facility]) ID Date Data Source [id number] 03/18/2020 12:00:00 AM EST ROMAN ([facility]) Name Value Range Interpretation Code Description Data Kaye rce(s) Supporting Document(s) bedside glucose 282 mg/dL 70-105 Above high normal Bedside Gluco se ROMAN ([facility]) ID Date Data Source [id number] 03/17/2020 09:33:00 PM EST ROMAN ([facility]) Name Value Range Interpretation Code Description Data Kaye rce(s) Supporting Document(s) bedside glucose 227 mg/dL 70-105 Above high normal Bedside Gluco se ROMAN ([facility]) ID Date Data Source [id number] 03/17/2020 09:33:00 PM EST ROMAN ([facility]) Name Value Range Interpretation Code Description Data Kaye rce(s) Supporting Document(s) bedside glucose 227 mg/dL 70-105 Above high normal Bedside Gluco se ROMAN ([facility]) ID Date Data Source [id number] 03/17/2020 09:33:00 PM EST ROMAN ([facility]) Name Value Range Interpretation Code Description Data Kaye rce(s) Supporting Document(s) bedside glucose 227 mg/dL 70-105 Above high normal Bedside Gluco se ROMAN ([facility]) ID Date Data Source [id number] 03/17/2020 09:33:00 PM EST ROMAN ([facility]) Name Value Range Interpretation Code Description Data Kaye rce(s) Supporting Document(s) bedside glucose 227 mg/dL 70-105 Above high normal Bedside Gluco se ROMAN ([facility]) ID Date Data Source [id number] 03/17/2020 09:33:00 PM EST ROMAN ([facility]) Name Value Range Interpretation Code Description Data Kaye rce(s) Supporting Document(s) bedside glucose 227 mg/dL 70-105 Above high normal Bedside Gluco se BRYAN ([facility]) ID Date Data Source [id number] 03/17/2020 09:33:00 PM EST BRYAN ([facility]) Name Value Range Interpretation Code Description Data Kaye rce(s) Supporting Document(s) bedside glucose 227 mg/dL 70-105 Above high normal Bedside Gluco se BRYAN ([facility]) ID Date Data Source [id number] 03/17/2020 08:43:00 PM EST [facility]) Name Value Range Interpretation Code Description Data Kaye rce(s) Supporting Document(s) sars covid-19 amplification negative negative Sars Cov id-19 Amplification [facility]) ID Date Data Source [id number] 03/17/2020 08:43:00 PM EST BRYAN ([facility]) Name Value Range Interpretation Code Description Data Kaye rce(s) Supporting Document(s) sars covid-19 amplification negative negative Sars Cov id-19 Amplification [facility]) ID Date Data Source [id number] 03/17/2020 08:43:00 PM EST [facility]) Name Value Range Interpretation Code Description Data Kaye rce(s) Supporting Document(s) sars covid-19 amplification negative negative Sars Cov id-19 Amplification [facility]) ID Date Data Source [id number] 03/17/2020 08:43:00 PM EST BRYAN ([facility]) Name Value Range Interpretation Code Description Data Kaye rce(s) Supporting Document(s) sars covid-19 amplification negative negative Sars Cov id-19 Amplification [facility]) ID Date Data Source [id number] 03/17/2020 08:43:00 PM EST BRYAN ([facility]) Name Value Range Interpretation Code Description Data Kaye rce(s) Supporting Document(s) sars covid-19 amplification negative negative Sars Cov id-19 Amplification [facility]) ID Date Data Source [id number] 03/17/2020 08:43:00 PM EST [facility]) Name Value Range Interpretation Code Description Data Kaye rce(s) Supporting Document(s) sars covid-19 amplification negative negative Sars Cov id-19 Amplification [facility]) ID Date Data Source [id number] 03/17/2020 08:43:00 PM EST [facility] Name Value Range Interpretation Code Description Data Kaye rce(s) Supporting Document(s) SARS coronavirus 2 RNA [Presence] in Res piratory specimen by SULY with probe detection [facility] This lab was ordered by [facility] a nd reported by [facility]. ID Date Data Source [id number] 03/17/2020 07:07:00 PM EST [facility]) Name Value Range Interpretation Code Description Data Kaye rce(s) Supporting Document(s) bedside glucose 195 mg/dL 70-105 Above high normal Bedside Gluco se [facility]) ID Date Data Source [id number] 03/17/2020 07:07:00 PM EST [facility]) Name Value Range Interpretation Code Description Data Kaye rce(s) Supporting Document(s) bedside glucose 195 mg/dL 70-105 Above high normal Bedside Gluco se ROMAN ([facility]) ID Date Data Source [id number] 03/17/2020 07:07:00 PM EST ROMAN ([facility]) Name Value Range Interpretation Code Description Data Kaye rce(s) Supporting Document(s) bedside glucose 195 mg/dL 70-105 Above high normal Bedside Gluco se ROMAN ([facility]) ID Date Data Source [id number] 03/17/2020 07:07:00 PM EST ROMAN ([facility]) Name Value Range Interpretation Code Description Data Kaye rce(s) Supporting Document(s) bedside glucose 195 mg/dL 70-105 Above high normal Bedside Gluco se ROMAN ([facility]) ID Date Data Source [id number] 03/17/2020 07:07:00 PM EST ROMAN ([facility]) Name Value Range Interpretation Code Description Data Kaye rce(s) Supporting Document(s) bedside glucose 195 mg/dL 70-105 Above high normal Bedside Gluco se BRYAN ([facility]) ID Date Data Source [id number] 03/17/2020 07:07:00 PM EST ROMAN ([facility]) Name Value Range Interpretation Code Description Data Kaye rce(s) Supporting Document(s) bedside glucose 195 mg/dL 70-105 Above high normal Bedside Gluco se ROMAN ([facility]) ID Date Data Source [id number] 03/17/2020 06:47:00 PM EST ROMAN ([facility]) Name Value Range Interpretation Code Description Data Kaye rce(s) Supporting Document(s) glucose, fasting 224 mg/dL 70-100 Above high normal Glucose, Fas ting BRYAN ([facility]) blood urea nitrogen 39 mg/dL 7-18 Above high normal Blood Ure a Nitrogen BRYAN ([facility]) creatinine for GFR 1.46 mg/dL 0.55-1.30 Above high normal Creatinine for GFR ROMAN ([facility]) glomerular filtration rate >58 Below low normal Beata merular Filtration Rate ROMAN ([facility]) sodium level 141 mEq/L 136-145 Sodium Level ROMAN ([facility]) potassium serum 3.6 mEq/L 3.5-5.1 Potassium Serum ATHE NA ([facility]) chloride level 108 mEq/L 98-107 Above high normal Chloride Level ROMAN ([facility]) carbon dioxide level 20 mEq/L 21-32 Below low normal Carbon Di oxide Level ROMAN ([facility]) calcium level 7.6 mg/dL 8.5-10.1 Below low normal Calcium Level AT [facility] ([facility]) anion gap 13 mEq/L 8-16 Anion Gap BRYAN ([facility]) ID Date Data Source [id number] 03/17/2020 06:47:00 PM EST BRYAN ([facility]) Name Value Range Interpretation Code Description Data Kaye rce(s) Supporting Document(s) glucose, fasting 224 mg/dL 70-100 Above high normal Glucose, Fas ting BRYAN ([facility]) blood urea nitrogen 39 mg/dL 7-18 Above high normal Blood Ure a Nitrogen ROMAN ([facility]) glomerular filtration rate >58 Below low normal Beata merular Filtration Rate ROMAN ([facility]) creatinine for GFR 1.46 mg/dL 0.55-1.30 Above high normal Creatinine for GFR ROMAN ([facility]) sodium level 141 mEq/L 136-145 Sodium Level ROMAN ([facility]) chloride level 108 mEq/L 98-107 Above high normal Chloride Level ROMAN ([facility]) potassium serum 3.6 mEq/L 3.5-5.1 Potassium Serum ATHE NA ([facility]) carbon dioxide level 20 mEq/L 21-32 Below low normal Carbon Di oxide Level BRYAN ([facility]) calcium level 7.6 mg/dL 8.5-10.1 Below low normal Calcium Level AT [facility]) anion gap 13 mEq/L 8-16 Anion Gap ROMAN ([facility]) ID Date Data Source [id number] 03/17/2020 06:47:00 PM EST ROMAN ([facility]) Name Value Range Interpretation Code Description Data Kaye rce(s) Supporting Document(s) blood urea nitrogen 39 mg/dL 7-18 Above high normal Blood Ure a Nitrogen ROMAN ([facility]) glucose, fasting 224 mg/dL 70-100 Above high normal Glucose, Fas ting ROMAN ([facility]) creatinine for GFR 1.46 mg/dL 0.55-1.30 Above high normal Creatinine for GFR ROMAN ([facility]) glomerular filtration rate >58 Below low normal Beata merular Filtration Rate ROMAN ([facility]) sodium level 141 mEq/L 136-145 Sodium Level ROMAN ([facility]) potassium serum 3.6 mEq/L 3.5-5.1 Potassium Serum ATH NA ([facility]) carbon dioxide level 20 mEq/L 21-32 Below low normal Carbon Di oxide Level ROMAN ([facility]) chloride level 108 mEq/L 98-107 Above high normal Chloride Level BRYAN ([facility]) calcium level 7.6 mg/dL 8.5-10.1 Below low normal Calcium Level AT [facility] ([facility]) anion gap 13 mEq/L 8-16 Anion Gap ROMAN ([facility]) ID Date Data Source [id number] 03/17/2020 06:47:00 PM EST ROMAN ([facility]) Name Value Range Interpretation Code Description Data Kaye rce(s) Supporting Document(s) blood urea nitrogen 39 mg/dL 7-18 Above high normal Blood Ure a Nitrogen ROMAN ([facility]) glucose, fasting 224 mg/dL 70-100 Above high normal Glucose, Fas ting ROMAN ([facility]) creatinine for GFR 1.46 mg/dL 0.55-1.30 Above high normal Creatinine for GFR ROMAN ([facility]) glomerular filtration rate >58 Below low normal Beata merular Filtration Rate ROMAN ([facility]) sodium level 141 mEq/L 136-145 Sodium Level ROMAN ([facility]) potassium serum 3.6 mEq/L 3.5-5.1 Potassium Serum ATHE NA ([facility]) carbon dioxide level 20 mEq/L 21-32 Below low normal Carbon Di oxide Level ROMAN ([facility]) chloride level 108 mEq/L 98-107 Above high normal Chloride Level ROMAN ([facility]) anion gap 13 mEq/L 8-16 Anion Gap ROMAN ([facility]) calcium level 7.6 mg/dL 8.5-10.1 Below low normal Calcium Level AT [facility]) ID Date Data Source [id number] 03/17/2020 06:47:00 PM EST BRYAN ([facility]) Name Value Range Interpretation Code Description Data Kaye rce(s) Supporting Document(s) blood urea nitrogen 39 mg/dL 7-18 Above high normal Blood Ure a Nitrogen ROMAN ([facility]) glucose, fasting 224 mg/dL 70-100 Above high normal Glucose, Fas ting ROMAN ([facility]) glomerular filtration rate >58 Below low normal Beata merular Filtration Rate ROMAN ([facility]) creatinine for GFR 1.46 mg/dL 0.55-1.30 Above high normal Creatinine for GFR ROMAN ([facility]) potassium serum 3.6 mEq/L 3.5-5.1 Potassium Serum ATHE NA ([facility]) sodium level 141 mEq/L 136-145 Sodium Level ROMAN ([facility]) chloride level 108 mEq/L 98-107 Above high normal Chloride Level ROMAN ([facility]) carbon dioxide level 20 mEq/L 21-32 Below low normal Carbon Di oxide Level ROMAN ([facility]) anion gap 13 mEq/L 8-16 Anion Gap ROMAN ([facility]) calcium level 7.6 mg/dL 8.5-10.1 Below low normal Calcium Level AT [facility]) ID Date Data Source [id number] 03/17/2020 06:47:00 PM EST BRYAN ([facility]) Name Value Range Interpretation Code Description Data Kaye rce(s) Supporting Document(s) glucose, fasting 224 mg/dL 70-100 Above high normal Glucose, Fas ting ROMAN ([facility]) blood urea nitrogen 39 mg/dL 7-18 Above high normal Blood Ure a Nitrogen ROMAN ([facility]) creatinine for GFR 1.46 mg/dL 0.55-1.30 Above high normal Creatinine for GFR ROMAN ([facility]) glomerular filtration rate >58 Below low normal Beata merular Filtration Rate ROMAN ([facility]) sodium level 141 mEq/L 136-145 Sodium Level ROMAN ([facility]) potassium serum 3.6 mEq/L 3.5-5.1 Potassium Serum ATH NA ([facility]) chloride level 108 mEq/L 98-107 Above high normal Chloride Level BRYAN ([facility]) carbon dioxide level 20 mEq/L 21-32 Below low normal Carbon Di oxide Level BRYAN ([facility]) anion gap 13 mEq/L 8-16 Anion Gap BRYAN ([facility]) calcium level 7.6 mg/dL 8.5-10.1 Below low normal Calcium Level AT [facility] ([facility]) ID Date Data Source [id number] 03/17/2020 05:19:00 PM EST BRYAN ([facility]) Name Value Range Interpretation Code Description Data Kaye rce(s) Supporting Document(s) bedside glucose 329 mg/dL 70-105 Above high normal Bedside Gluco se BRYAN ([facility]) ID Date Data Source [id number] 03/17/2020 05:19:00 PM EST ROMAN ([facility]) Name Value Range Interpretation Code Description Data Kaye rce(s) Supporting Document(s) bedside glucose 329 mg/dL 70-105 Above high normal Bedside Gluco se [facility]) ID Date Data Source [id number] 03/17/2020 05:19:00 PM EST ROMAN ([facility]) Name Value Range Interpretation Code Description Data Kaye rce(s) Supporting Document(s) bedside glucose 329 mg/dL 70-105 Above high normal Bedside Gluco se ROMAN ([facility]) ID Date Data Source [id number] 03/17/2020 05:19:00 PM EST ROMAN ([facility]) Name Value Range Interpretation Code Description Data Kaye rce(s) Supporting Document(s) bedside glucose 329 mg/dL 70-105 Above high normal Bedside Gluco se [facility]) ID Date Data Source [id number] 03/17/2020 05:19:00 PM EST ROMAN ([facility]) Name Value Range Interpretation Code Description Data Kaye rce(s) Supporting Document(s) bedside glucose 329 mg/dL 70-105 Above high normal Bedside Gluco se BRYAN ([facility]) ID Date Data Source [id number] 03/17/2020 05:19:00 PM EST ROMAN ([facility]) Name Value Range Interpretation Code Description Data Kaye rce(s) Supporting Document(s) bedside glucose 329 mg/dL 70-105 Above high normal Bedside Gluco se ROMAN ([facility]) ID Date Data Source [id number] 02/19/2020 11:50:00 AM EST ROMAN ([facility]) Name Value Range Interpretation Code Description Data Kaye rce(s) Supporting Document(s) bedside glucose 180 mg/dL 70-105 Above high [facility] Date Data Source [id number] 02/19/2020 11:50:00 AM [facility] Name Value Range Interpretation Code Description Data Kaye rce(s) Supporting Document(s) bedside glucose 180 mg/dL 70-105 Above high normal Bedside Gluco se ROMAN ([facility]) ID Date Data Source [id number] 02/19/2020 11:50:00 AM EST ROMAN ([facility]) Name Value Range Interpretation Code Description Data Kaye rce(s) Supporting Document(s) bedside glucose 180 mg/dL 70-105 Above high normal Bedside Gluco se ROMAN ([facility]) ID Date Data Source [id number] 02/19/2020 11:50:00 AM EST ROMAN ([facility]) Name Value Range Interpretation Code Description Data Kaye rce(s) Supporting Document(s) bedside glucose 180 mg/dL 70-105 Above high normal Bedside Gluco se BRYAN ([facility]) ID Date Data Source [id number] 02/19/2020 11:50:00 AM EST ROMAN ([facility]) Name Value Range Interpretation Code Description Data Kaye rce(s) Supporting Document(s) bedside glucose 180 mg/dL 70-105 Above high normal Bedside Gluco se ROMAN ([facility]) ID Date Data Source [id number] 02/19/2020 11:50:00 AM EST ROMAN [facility]) Name Value Range Interpretation Code Description Data Kaye rce(s) Supporting Document(s) bedside glucose 180 mg/dL 70-105 Above high normal Bedside Gluco se ROMAN ([facility]) ID Date Data Source [id number] 02/19/2020 11:50:00 AM EST ROMAN ([facility]) Name Value Range Interpretation Code Description Data Kaye rce(s) Supporting Document(s) bedside glucose 180 mg/dL 70-105 Above high normal [facility] ID Date Data Source [id number] 02/19/2020 04:20:00 AM EST ROMAN ([facility]) Name Value Range Interpretation Code Description Data Kaye rce(s) Supporting Document(s) blood urea nitrogen 21 mg/dL 7-18 Above high normal Blood Ure a Nitrogen ROMAN ([facility]) glucose, fasting 139 mg/dL 70-100 Above high normal Glucose, Fas ting ROMAN ([facility]) creatinine for GFR 1.14 mg/dL 0.55-1.30 Creatinine for GF R ROMAN ([facility]) glomerular filtration rate > 60.0 >58 Glomerula r Filtration Rate ROMAN ([facility]) sodium level 138 mEq/L 136-145 Sodium Level ROMAN (No [facility]) potassium serum 3.6 mEq/L 3.5-5.1 [facility] chloride level 109 mEq/L 98-107 Above high normal Chloride Level BRYAN ([facility]) anion gap 4 mEq/L 8-16 Below low normal Anion Gap BRYAN ( [facility]) carbon dioxide level 25 mEq/L 21-32 Carbon Dioxide Level BRYAN ([facility]) calcium level 8.4 mg/dL 8.5-10.1 Below low normal Calcium Level AT [facility] ([facility]) ID Date Data Source [id number] 02/19/2020 04:20:00 AM EST BRYAN ([facility]) Name Value Range Interpretation Code Description Data Kaye rce(s) Supporting Document(s) white blood count 5.8 10 4.0-10.0 White Blood Count BR[facility]AN ([facility]) red blood count 3.11 10 4.00-5.40 Below low normal Red Blood Coun t ROMAN ([facility]) hematocrit 26.6 % 36.0-47.0 Below low normal Hematocrit ROMAN ( [facility]) hemoglobin 8.5 g/dL 12.0-15.5 Below low normal Hemoglobin ROMAN ( [facility]) mean corpuscular volume 85.5 fL 80.0-96.0 Mean Corpusc ular Volume ROMAN ([facility]) mean corpuscular hemoglobin 27.3 pg 27.0-33.0 Mean Cor puscular Hemoglobin ROMAN ([facility]) mean corpuscular HGB conc 32.0 g/dL 32.0-36.5 Mean Corpu scular HGB Conc ROMAN ([facility]) red cell distribution width 14.7 % 11.5-14.5 Above high no rmal Red Cell Distribution Width ROMAN ([facility]) platelet count, automated 256 10 150-450 Platelet C ount, Automated ROMAN ([facility]) nucleated red blood cell % 0.0 % 0-0 Nucleated Red Blood Cell % ROMAN ([facility]) ID Date Data Source [id number] 02/19/2020 04:20:00 AM EST ROMAN ([facility]) Name Value Range Interpretation Code Description Data Kaye rce(s) Supporting Document(s) glucose, fasting 139 mg/dL 70-100 Above high normal Glucose, Fas ting ROMAN ([facility]) blood urea nitrogen 21 mg/dL 7-18 Above high normal Blood Ure a Nitrogen ROMAN ([facility]) glomerular filtration rate > 60.0 >58 Glomerula r Filtration Rate BR[facility]AN ([facility]) creatinine for GFR 1.14 mg/dL 0.55-1.30 Creatinine for GF R ROMAN ([facility]) sodium level 138 mEq/L 136-145 Sodium Level ROMAN ([facility]) potassium serum 3.6 mEq/L 3.5-5.1 Potassium Serum ATH NA ([facility]) chloride level 109 mEq/L 98-107 Above high normal Chloride Level BRYAN ([facility]) anion gap 4 mEq/L 8-16 Below low normal Anion Gap ROMAN ( [facility]) carbon dioxide level 25 mEq/L 21-32 Carbon Dioxide Level BRYAN ([facility]) calcium level 8.4 mg/dL 8.5-10.1 Below low normal Calcium Level AT [facility]) ID Date Data Source [id number] 02/19/2020 04:20:00 AM EST ROMAN ([facility]) Name Value Range Interpretation Code Description Data Kaye rce(s) Supporting Document(s) white blood count 5.8 10 4.0-10.0 White Blood Count [facility] ([facility]) red blood count 3.11 10 4.00-5.40 Below low normal Red Blood Coun t [facility]AN ([facility]) hemoglobin 8.5 g/dL 12.0-15.5 Below low normal Hemoglobin BR[facility]AN ( [facility]) hematocrit 26.6 % 36.0-47.0 Below low normal Hematocrit BR[facility]AN ( [facility]) mean corpuscular volume 85.5 fL 80.0-96.0 Mean Corpusc ular Volume BR[facility]AN ([facility]) mean corpuscular HGB conc 32.0 g/dL 32.0-36.5 Mean Corpu scular HGB Conc [facility]AN ([facility]) mean corpuscular hemoglobin 27.3 pg 27.0-33.0 Mean Cor puscular Hemoglobin [facility] ([facility]) red cell distribution width 14.7 % 11.5-14.5 Above high no rmal Red Cell Distribution Width [facility] ([facility]) platelet count, automated 256 10 150-450 Platelet C ount, Automated [facility] ([facility]) nucleated red blood cell % 0.0 % 0-0 Nucleated Red Blood Cell % [facility]AN ([facility]) ID Date Data Source [id number] 02/19/2020 04:20:00 AM EST [facility]AN ([facility]) Name Value Range Interpretation Code Description Data Kaye rce(s) Supporting Document(s) glucose, fasting 139 mg/dL 70-100 Above high normal Glucose, Fas ting [facility]AN ([facility]) blood urea nitrogen 21 mg/dL 7-18 Above high normal Blood Ure a Nitrogen [facility] ([facility]) glomerular filtration rate > 60.0 >58 Glomerula r Filtration Rate [facility] ([facility]) creatinine for GFR 1.14 mg/dL 0.55-1.30 Creatinine for GF R [facility] ([facility]) sodium level 138 mEq/L 136-145 Sodium Level ROMAN ([facility]) potassium serum 3.6 mEq/L 3.5-5.1 Potassium Serum ATHE NA ([facility]) chloride level 109 mEq/L 98-107 Above high normal Chloride Level ROMAN ([facility]) anion gap 4 mEq/L 8-16 Below low normal Anion Gap ROMAN ( [facility]) carbon dioxide level 25 mEq/L 21-32 Carbon Dioxide Level ROMAN ([facility]) calcium level 8.4 mg/dL 8.5-10.1 Below low normal Calcium Level AT [facility]) ID Date Data Source [id number] 02/19/2020 04:20:00 AM EST BRYAN ([facility]) Name Value Range Interpretation Code Description Data Kaye rce(s) Supporting Document(s) white blood count 5.8 10 4.0-10.0 White Blood Count BRYAN ([facility]) red blood count 3.11 10 4.00-5.40 Below low normal Red Blood Coun t ROMAN ([facility]) hemoglobin 8.5 g/dL 12.0-15.5 Below low normal Hemoglobin ROMAN ( [facility]) mean corpuscular volume 85.5 fL 80.0-96.0 Mean Corpusc ular Volume ROMAN ([facility]) hematocrit 26.6 % 36.0-47.0 Below low normal Hematocrit ROMAN ( [facility]) mean corpuscular hemoglobin 27.3 pg 27.0-33.0 Mean Cor puscular Hemoglobin ROMAN ([facility]) red cell distribution width 14.7 % 11.5-14.5 Above high no rmal Red Cell Distribution Width ROMAN ([facility]) mean corpuscular HGB conc 32.0 g/dL 32.0-36.5 Mean Corpu scular HGB Conc ROMAN ([facility]) platelet count, automated 256 10 150-450 Platelet C ount, Automated ROMAN ([facility]) nucleated red blood cell % 0.0 % 0-0 Nucleated Red Blood Cell % ROMAN ([facility]) ID Date Data Source [id number] 02/19/2020 04:20:00 AM ADA OWENS ([facility]) Name Value Range Interpretation Code Description Data Kaye rce(s) Supporting Document(s) blood urea nitrogen 21 mg/dL 7-18 Above high normal Blood Ure a Nitrogen ROMAN ([facility]) glucose, fasting 139 mg/dL 70-100 Above high normal Glucose, Fas ting ROMAN ([facility]) glomerular filtration rate > 60.0 >58 Glomerula r Filtration Rate ROMAN ([facility]) creatinine for GFR 1.14 mg/dL 0.55-1.30 Creatinine for GF R ROMAN ([facility]) sodium level 138 mEq/L 136-145 Sodium Level ROMAN (No [facility]) potassium serum 3.6 mEq/L 3.5-5.1 Potassium Serum ATH NA ([facility]) carbon dioxide level 25 mEq/L 21-32 Carbon Dioxide Level BRYAN ([facility]) chloride level 109 mEq/L 98-107 Above high normal Chloride Level BRYAN ([facility]) anion gap 4 mEq/L 8-16 Below low normal Anion Gap BRYAN ( [facility]) calcium level 8.4 mg/dL 8.5-10.1 Below low normal Calcium Level AT [facility] ([facility]) ID Date Data Source [id number] 02/19/2020 04:20:00 AM EST ROMAN ([facility]) Name Value Range Interpretation Code Description Data Kaye rce(s) Supporting Document(s) white blood count 5.8 10 4.0-10.0 White Blood Count BRYAN ([facility]) red blood count 3.11 10 4.00-5.40 Below low normal Red Blood Coun t ROMAN ([facility]) hematocrit 26.6 % 36.0-47.0 Below low normal Hematocrit ROMAN ( [facility]) hemoglobin 8.5 g/dL 12.0-15.5 Below low normal Hemoglobin BRYAN ( [facility]) mean corpuscular volume 85.5 fL 80.0-96.0 Mean Corpusc ular Volume ROMAN ([facility]) mean corpuscular HGB conc 32.0 g/dL 32.0-36.5 Mean Corpu scular HGB Conc BRYAN ([facility]) mean corpuscular hemoglobin 27.3 pg 27.0-33.0 Mean Cor puscular Hemoglobin ROMAN ([facility]) red cell distribution width 14.7 % 11.5-14.5 Above high no rmal Red Cell Distribution Width ROMAN ([facility]) platelet count, automated 256 10 150-450 Platelet C ount, Automated ROMAN ([facility]) nucleated red blood cell % 0.0 % 0-0 Nucleated Red Blood Cell % BRYAN ([facility]) ID Date Data Source [id number] 02/19/2020 04:20:00 AM EST BRYAN ([facility]) Name Value Range Interpretation Code Description Data Kaye rce(s) Supporting Document(s) blood urea nitrogen 21 mg/dL 7-18 Above high normal Blood Ure a Nitrogen ROMAN ([facility]) glucose, fasting 139 mg/dL 70-100 Above high normal Glucose, Fas ting BRYAN ([facility]) creatinine for GFR 1.14 mg/dL 0.55-1.30 Creatinine for GF R BRYAN ([facility]) glomerular filtration rate > 60.0 >58 Glomerula r Filtration Rate ROMAN ([facility]) potassium serum 3.6 mEq/L 3.5-5.1 Potassium Serum ATHE NA ([facility]) sodium level 138 mEq/L 136-145 Sodium Level ROMAN (No [facility]) chloride level 109 mEq/L 98-107 Above high normal Chloride Level ROMAN ([facility]) carbon dioxide level 25 mEq/L 21-32 Carbon Dioxide Level BRYAN ([facility]) calcium level 8.4 mg/dL 8.5-10.1 Below low normal Calcium Level AT TR[facility]) anion gap 4 mEq/L 8-16 Below low normal Anion Gap BRYAN ( [facility]) ID Date Data Source [id number] 02/19/2020 04:20:00 AM EST ROMAN ([facility]) Name Value Range Interpretation Code Description Data Kaye rce(s) Supporting Document(s) white blood count 5.8 10 4.0-10.0 White Blood Count BRYAN ([facility]) red blood count 3.11 10 4.00-5.40 Below low normal Red Blood Coun t BRYAN ([facility]) hematocrit 26.6 % 36.0-47.0 Below low normal Hematocrit BRYAN ( [facility]) hemoglobin 8.5 g/dL 12.0-15.5 Below low normal Hemoglobin BRYAN ( [facility]) mean corpuscular volume 85.5 fL 80.0-96.0 Mean Corpusc ular Volume BRYAN ([facility]) mean corpuscular hemoglobin 27.3 pg 27.0-33.0 Mean Cor puscular Hemoglobin BRYAN ([facility]) mean corpuscular HGB conc 32.0 g/dL 32.0-36.5 Mean Corpu scular HGB Conc BRYAN ([facility]) red cell distribution width 14.7 % 11.5-14.5 Above high no rmal Red Cell Distribution Width BRYAN ([facility]) platelet count, automated 256 10 150-450 Platelet C ount, Automated BRYAN ([facility]) nucleated red blood cell % 0.0 % 0-0 Nucleated Red Blood Cell % BRYAN ([facility]) ID Date Data Source [id number] 02/19/2020 04:20:00 AM EST ROMAN ([facility]) Name Value Range Interpretation Code Description Data Kaye rce(s) Supporting Document(s) glucose, fasting 139 mg/dL 70-100 Above high normal Glucose, Fas ting BRYAN ([facility]) blood urea nitrogen 21 mg/dL 7-18 Above high normal Blood Ure a Nitrogen [facility]) creatinine for GFR 1.14 mg/dL 0.55-1.30 Creatinine for GF R BRYAN ([facility]) sodium level 138 mEq/L 136-145 Sodium Level ROMAN (No [facility]) glomerular filtration rate > 60.0 >58 Glomerula r Filtration Rate ROMAN ([facility]) potassium serum 3.6 mEq/L 3.5-5.1 Potassium Serum ATHE NA ([facility]) chloride level 109 mEq/L 98-107 Above high normal Chloride Level ROMAN ([facility]) anion gap 4 mEq/L 8-16 Below low normal Anion Gap ROMAN ( [facility]) carbon dioxide level 25 mEq/L 21-32 Carbon Dioxide Level ROMAN ([facility]) calcium level 8.4 mg/dL 8.5-10.1 Below low normal Calcium Level AT [facility]) ID Date Data Source [id number] 02/19/2020 04:20:00 AM EST [facility]) Name Value Range Interpretation Code Description Data Kaye rce(s) Supporting Document(s) white blood count 5.8 10 4.0-10.0 White Blood Count ROMAN ([facility]) red blood count 3.11 10 4.00-5.40 Below low normal Red Blood Coun t ROMAN ([facility]) hemoglobin 8.5 g/dL 12.0-15.5 Below low normal Hemoglobin ROMAN ( [facility]) hematocrit 26.6 % 36.0-47.0 Below low normal Hematocrit ROMAN ( [facility]) mean corpuscular volume 85.5 fL 80.0-96.0 Mean Corpusc ular Volume ROMAN ([facility]) mean corpuscular hemoglobin 27.3 pg 27.0-33.0 Mean Cor puscular Hemoglobin ROMAN ([facility]) mean corpuscular HGB conc 32.0 g/dL 32.0-36.5 Mean Corpu scular HGB Conc ROMAN ([facility]) red cell distribution width 14.7 % 11.5-14.5 Above high no rmal Red Cell Distribution Width ROMAN ([facility]) platelet count, automated 256 10 150-450 Platelet C ount, Automated ROMAN ([facility]) nucleated red blood cell % 0.0 % 0-0 Nucleated Red Blood Cell % ROMAN ([facility]) ID Date Data Source [id number] 02/19/2020 04:20:00 AM EST ROMAN ([facility]) Name Value Range Interpretation Code Description Data Kaye rce(s) Supporting Document(s) glucose, fasting 139 mg/dL 70-100 Above high normal Glucose, Fas ting ROMAN ([facility]) creatinine for GFR 1.14 mg/dL 0.55-1.30 Creatinine for GF R ROMAN ([facility]) blood urea nitrogen 21 mg/dL 7-18 Above high normal Blood Ure a Nitrogen BRYAN ([facility]) glomerular filtration rate > 60.0 >58 Glomerula r Filtration Rate ROMAN ([facility]) sodium level 138 mEq/L 136-145 Sodium Level ROMAN (No [facility]) potassium serum 3.6 mEq/L 3.5-5.1 Potassium Serum ATHE NA ([facility]) carbon dioxide level 25 mEq/L 21-32 Carbon Dioxide Level ROMAN ([facility]) chloride level 109 mEq/L 98-107 Above high normal Chloride Level BRYAN ([facility]) anion gap 4 mEq/L 8-16 Below low normal Anion Gap BRYAN ( [facility]) calcium level 8.4 mg/dL 8.5-10.1 Below low normal Calcium Level AT TRAM ([facility]) ID Date Data Source [id number] 02/19/2020 04:20:00 AM EST BRYAN ([facility]) Name Value Range Interpretation Code Description Data Kaye rce(s) Supporting Document(s) white blood count 5.8 10 4.0-10.0 White Blood Count BRYAN ([facility]) red blood count 3.11 10 4.00-5.40 Below low normal Red Blood Coun t BRYAN ([facility]) hemoglobin 8.5 g/dL 12.0-15.5 Below low normal Hemoglobin ROMAN ( [facility]) hematocrit 26.6 % 36.0-47.0 Below low normal Hematocrit ROMAN ( [facility]) mean corpuscular volume 85.5 fL 80.0-96.0 Mean Corpusc ular Volume ROMAN ([facility]) mean corpuscular hemoglobin 27.3 pg 27.0-33.0 Mean Cor puscular Hemoglobin ROMAN ([facility]) red cell distribution width 14.7 % 11.5-14.5 Above high no rmal Red Cell Distribution Width ROMAN ([facility]) mean corpuscular HGB conc 32.0 g/dL 32.0-36.5 Mean Corpu scular HGB Conc ROMAN ([facility]) platelet count, automated 256 10 150-450 Platelet C ount, Automated ROMAN ([facility]) nucleated red blood cell % 0.0 % 0-0 Nucleated Red Blood Cell % BRYAN ([facility]) ID Date Data Source [id number] 02/18/2020 08:43:00 PM EST ROMAN ([facility]) Name Value Range Interpretation Code Description Data Kaye rce(s) Supporting Document(s) bedside glucose 67 mg/dL 70-105 Below low normal Bedside Glucos e ROMAN ([facility]) ID Date Data Source [id number] 02/18/2020 08:43:00 PM EST ROMAN ([facility]) Name Value Range Interpretation Code Description Data Kaye rce(s) Supporting Document(s) bedside glucose 67 mg/dL 70-105 Below low normal Bedside Glucos e ROMAN ([facility]) ID Date Data Source [id number] 02/18/2020 08:43:00 PM EST ROMAN ([facility]) Name Value Range Interpretation Code Description Data Kaye rce(s) Supporting Document(s) bedside glucose 67 mg/dL 70-105 Below low normal Bedside Glucos e ROMAN ([facility]) ID Date Data Source [id number] 02/18/2020 08:43:00 PM EST ROMAN ([facility]) Name Value Range Interpretation Code Description Data Kaye rce(s) Supporting Document(s) bedside glucose 67 mg/dL 70-105 Below low normal Bedside Glucos e ROMAN ([facility]) ID Date Data Source [id number] 02/18/2020 08:43:00 PM EST ROMAN ([facility]) Name Value Range Interpretation Code Description Data Kaye rce(s) Supporting Document(s) bedside glucose 67 mg/dL 70-105 Below low normal Bedside Glucos e ROMAN ([facility]) ID Date Data Source [id number] 02/18/2020 08:43:00 PM EST ROMAN ([facility]) Name Value Range Interpretation Code Description Data Kaye rce(s) Supporting Document(s) bedside glucose 67 mg/dL 70-105 Below low normal Bedside Glucos e ROMAN ([facility]) ID Date Data Source [id number] 02/18/2020 08:43:00 PM EST ROMAN ([facility]) Name Value Range Interpretation Code Description Data Kaye rce(s) Supporting Document(s) bedside glucose 67 mg/dL 70-105 Below low normal Bedside Glucos e ROMAN ([facility]) ID Date Data Source [id number] 02/18/2020 08:09:00 PM EST ROMAN ([facility]) Name Value Range Interpretation Code Description Data Kaye rce(s) Supporting Document(s) bedside glucose 40 mg/dL 70-105 Below low normal Bedside Glucos e ROMAN ([facility]) ID Date Data Source [id number] 02/18/2020 08:09:00 PM EST ROMAN ([facility]) Name Value Range Interpretation Code Description Data Kaye rce(s) Supporting Document(s) bedside glucose 40 mg/dL 70-105 Below low normal Bedside Glucos e ROMAN ([facility]) ID Date Data Source [id number] 02/18/2020 08:09:00 PM EST ROMAN ([facility]) Name Value Range Interpretation Code Description Data Kaye rce(s) Supporting Document(s) bedside glucose 40 mg/dL 70-105 Below low normal Bedside Glucos e ROMAN ([facility]) ID Date Data Source [id number] 02/18/2020 08:09:00 PM EST ROMAN ([facility]) Name Value Range Interpretation Code Description Data Kaye rce(s) Supporting Document(s) bedside glucose 40 mg/dL 70-105 Below low normal Bedside Glucos e ROMAN ([facility]) ID Date Data Source [id number] 02/18/2020 08:09:00 PM EST ROMAN ([facility]) Name Value Range Interpretation Code Description Data Kaye rce(s) Supporting Document(s) bedside glucose 40 mg/dL 70-105 Below low normal Bedside Glucos e ROMAN ([facility]) ID Date Data Source [id number] 02/18/2020 08:09:00 PM EST ROMAN ([facility]) Name Value Range Interpretation Code Description Data Kaye rce(s) Supporting Document(s) bedside glucose 40 mg/dL 70-105 Below low normal Bedside Glucos e ROMAN ([facility]) ID Date Data Source [id number] 02/18/2020 08:09:00 PM EST ROMAN ([facility]) Name Value Range Interpretation Code Description Data Kaye rce(s) Supporting Document(s) bedside glucose 40 mg/dL 70-105 Below low normal Bedside Glucos e ROMAN ([facility]) ID Date Data Source [id number] 02/18/2020 05:03:00 PM EST ROMAN ([facility]) Name Value Range Interpretation Code Description Data Kaye rce(s) Supporting Document(s) bedside glucose 112 mg/dL 70-105 Above high normal Bedside Gluco se ROMAN ([facility]) ID Date Data Source [id number] 02/18/2020 05:03:00 PM EST ROMAN ([facility]) Name Value Range Interpretation Code Description Data Kaye rce(s) Supporting Document(s) bedside glucose 112 mg/dL 70-105 Above high normal Bedside Gluco se ROMAN ([facility]) ID Date Data Source [id number] 02/18/2020 05:03:00 PM EST ROMAN ([facility]) Name Value Range Interpretation Code Description Data Kaye rce(s) Supporting Document(s) bedside glucose 112 mg/dL 70-105 Above high normal Bedside Gluco se ROMAN ([facility]) ID Date Data Source [id number] 02/18/2020 05:03:00 PM EST ROMAN ([facility]) Name Value Range Interpretation Code Description Data Kaye rce(s) Supporting Document(s) bedside glucose 112 mg/dL 70-105 Above high normal Bedside Gluco se ROMAN ([facility]) ID Date Data Source [id number] 02/18/2020 05:03:00 PM EST ROMAN ([facility]) Name Value Range Interpretation Code Description Data Kaye rce(s) Supporting Document(s) bedside glucose 112 mg/dL 70-105 Above high normal Bedside Gluco se ROMAN ([facility]) ID Date Data Source [id number] 02/18/2020 05:03:00 PM EST ROMAN ([facility]) Name Value Range Interpretation Code Description Data Kaye rce(s) Supporting Document(s) bedside glucose 112 mg/dL 70-105 Above high normal Bedside Gluco se ROMAN ([facility]) ID Date Data Source [id number] 02/18/2020 05:03:00 PM EST ROMAN ([facility]) Name Value Range Interpretation Code Description Data Kaye rce(s) Supporting Document(s) bedside glucose 112 mg/dL 70-105 Above high normal Bedside Gluco se ROMAN ([facility]) ID Date Data Source [id number] 02/18/2020 11:43:00 AM EST ROMAN ([facility]) Name Value Range Interpretation Code Description Data Kaye rce(s) Supporting Document(s) bedside glucose 199 mg/dL 70-105 Above high normal Bedside Gluco se ROMAN ([facility]) ID Date Data Source [id number] 02/18/2020 11:43:00 AM EST ROMAN ([facility]) Name Value Range Interpretation Code Description Data Kaye rce(s) Supporting Document(s) bedside glucose 199 mg/dL 70-105 Above high normal Bedside Gluco se ROMAN ([facility]) ID Date Data Source [id number] 02/18/2020 11:43:00 AM EST ROMAN ([facility]) Name Value Range Interpretation Code Description Data Kaye rce(s) Supporting Document(s) bedside glucose 199 mg/dL 70-105 Above high normal Bedside Gluco se ROMAN ([facility]) ID Date Data Source [id number] 02/18/2020 11:43:00 AM EST ROMAN ([facility]) Name Value Range Interpretation Code Description Data Kaye rce(s) Supporting Document(s) bedside glucose 199 mg/dL 70-105 Above high normal Bedside Gluco se ROMAN ([facility]) ID Date Data Source [id number] 02/18/2020 11:43:00 AM EST ROMAN ([facility]) Name Value Range Interpretation Code Description Data Kaye rce(s) Supporting Document(s) bedside glucose 199 mg/dL 70-105 Above high normal Bedside Gluco se ROMAN ([facility]) ID Date Data Source [id number] 02/18/2020 11:43:00 AM EST ROMAN ([facility]) Name Value Range Interpretation Code Description Data Kaye rce(s) Supporting Document(s) bedside glucose 199 mg/dL 70-105 Above high normal Bedside Gluco se ROMAN ([facility]) ID Date Data Source [id number] 02/18/2020 [facility]:43[facility] Name Value Range Interpretation Code Description Data Kaye rce(s) Supporting Document(s) bedside glucose 199 mg/dL 70-105 Above high normal Bedside Gluco se ROMAN ([facility]) ID Date Data Source [id number] 02/18/2020 10:22:00 AM EST [facility]) Name Value Range Interpretation Code Description Data Akye rce(s) Supporting Document(s) bedside glucose 182 mg/dL 70-105 Above high normal [facility] ID Date Data Source [id number] 02/18/2020 10:22:00 AM EST ROMAN ([facility]) Name Value Range Interpretation Code Description Data Kaye rce(s) Supporting Document(s) bedside glucose 182 mg/dL 70-105 Above high normal [facility] Date Data Source [id number] 02/18/2020 10:22:00 AM [facility] Name Value Range Interpretation Code Description Data Kaye rce(s) Supporting Document(s) bedside glucose 182 mg/dL 70-105 Above high normal [facility] Date Data Source [id number] 02/18/2020 10:22:00 AM EST ROMAN ([facility]) Name Value Range Interpretation Code Description Data Kaye rce(s) Supporting Document(s) bedside glucose 182 mg/dL 70-105 Above high normal Bedside Gluco se ROMAN ([facility]) ID Date Data Source [id number] 02/18/2020 10:22:00 AM EST ROMAN ([facility]) Name Value Range Interpretation Code Description Data Kaye rce(s) Supporting Document(s) bedside glucose 182 mg/dL 70-105 Above high normal Bedside Gluco se ROMAN ([facility]) ID Date Data Source [id number] 02/18/2020 10:22:00 AM EST ROMAN ([facility]) Name Value Range Interpretation Code Description Data Kaye rce(s) Supporting Document(s) bedside glucose 182 mg/dL 70-105 Above high normal Bedside Gluco se ROMAN ([facility]) ID Date Data Source [id number] 02/18/2020 10:22:00 AM EST ROMAN ([facility]) Name Value Range Interpretation Code Description Data Kaye rce(s) Supporting Document(s) bedside glucose 182 mg/dL 70-105 Above high normal Bedside Gluco se ROMAN ([facility]) ID Date Data Source [id number] 02/18/2020 10:20:00 AM EST ROMAN ([facility]) Name Value Range Interpretation Code Description Data Kaye rce(s) Supporting Document(s) phosphorus level 1.4 mg/dL 2.5-4.9 Below low normal Phosphorus Le analia ROMAN ([facility]) ID Date Data Source [id number] 02/18/2020 10:20:00 AM EST ROMAN ([facility]) Name Value Range Interpretation Code Description Data Kaye rce(s) Supporting Document(s) glucose, fasting 199 mg/dL 70-100 Above high normal Glucose, Fas ting BRYAN ([facility]) blood urea nitrogen 32 mg/dL 7-18 Above high normal Blood Ure a Nitrogen ROMAN ([facility]) creatinine for GFR 1.38 mg/dL 0.55-1.30 Above high normal Creatinine for GFR ROMAN ([facility]) glomerular filtration rate >58 Below low normal Beata merular Filtration Rate ROMAN ([facility]) potassium serum 3.8 mEq/L 3.5-5.1 Potassium Serum ATH NA ([facility]) sodium level 139 mEq/L 136-145 Sodium Level ROMAN ([facility] [facility] carbon dioxide level 25 mEq/L 21-32 Carbon Dioxide Level BRYAN ([facility]) chloride level 109 mEq/L 98-107 Above high normal Chloride Level BRYAN ([facility]) anion gap 5 mEq/L 8-16 Below low normal Anion Gap BRYAN ( [facility]) calcium level 8.2 mg/dL 8.5-10.1 Below low normal Calcium Level AT [facility] ([facility]) ID Date Data Source [id number] 02/18/2020 10:20:00 AM EST ROMAN ([facility]) Name Value Range Interpretation Code Description Data Kaye rce(s) Supporting Document(s) phosphorus level 1.4 mg/dL 2.5-4.9 Below low normal Phosphorus Le analia BRYAN ([facility]) ID Date Data Source [id number] 02/18/2020 10:20:00 AM EST BRYAN ([facility]) Name Value Range Interpretation Code Description Data Kaye rce(s) Supporting Document(s) glucose, fasting 199 mg/dL 70-100 Above high normal Glucose, Fas ting BRYAN ([facility]) blood urea nitrogen 32 mg/dL 7-18 Above high normal Blood Ure a Nitrogen ROMAN ([facility]) glomerular filtration rate >58 Below low normal Beata merular Filtration Rate ROMAN ([facility]) creatinine for GFR 1.38 mg/dL 0.55-1.30 Above high normal Creatinine for GFR ROMAN ([facility]) potassium serum 3.8 mEq/L 3.5-5.1 Potassium Serum ATHE NA ([facility]) sodium level 139 mEq/L 136-145 Sodium Level ROMAN (No [facility]) chloride level 109 mEq/L 98-107 Above high normal Chloride Level ROMAN ([facility]) carbon dioxide level 25 mEq/L 21-32 Carbon Dioxide Level ROMAN ([facility]) anion gap 5 mEq/L 8-16 Below low normal Anion Gap ROMAN ( [facility]) calcium level 8.2 mg/dL 8.5-10.1 Below low normal Calcium Level AT [facility] ([facility]) ID Date Data Source [id number] 02/18/2020 10:20:00 AM EST ROMAN ([facility]) Name Value Range Interpretation Code Description Data Kaye rce(s) Supporting Document(s) phosphorus level 1.4 mg/dL 2.5-4.9 Below low normal Phosphorus Le analia ROMAN ([facility]) ID Date Data Source [id number] 02/18/2020 10:20:00 AM EST ROMAN ([facility]) Name Value Range Interpretation Code Description Data Kaye rce(s) Supporting Document(s) blood urea nitrogen 32 mg/dL 7-18 Above high normal Blood Ure a Nitrogen ROMAN ([facility]) glucose, fasting 199 mg/dL 70-100 Above high normal Glucose, Fas ting ROMAN ([facility]) creatinine for GFR 1.38 mg/dL 0.55-1.30 Above high normal Creatinine for GFR ROMAN ([facility]) glomerular filtration rate >58 Below low normal Beata merular Filtration Rate ROMAN ([facility]) sodium level 139 mEq/L 136-145 Sodium Level ROMAN (No [facility]) chloride level 109 mEq/L 98-107 Above high normal Chloride Level ROMAN ([facility]) potassium serum 3.8 mEq/L 3.5-5.1 Potassium Serum ATHE NA ([facility]) anion gap 5 mEq/L 8-16 Below low normal Anion Gap ROMAN ( [facility]) carbon dioxide level 25 mEq/L 21-32 Carbon Dioxide Level ROMAN ([facility]) calcium level 8.2 mg/dL 8.5-10.1 Below low normal Calcium Level AT [facility] ([facility]) ID Date Data Source [id number] 02/18/2020 10:20:00 AM EST BRYAN ([facility]) Name Value Range Interpretation Code Description Data Kaye rce(s) Supporting Document(s) phosphorus level 1.4 mg/dL 2.5-4.9 Below low normal Phosphorus Le analia BRYAN ([facility]) ID Date Data Source [id number] 02/18/2020 10:20:00 AM EST ROMAN ([facility]) Name Value Range Interpretation Code Description Data Kaye rce(s) Supporting Document(s) phosphorus level 1.4 mg/dL 2.5-4.9 Below low normal Phosphorus Le analia BRYAN ([facility]) ID Date Data Source [id number] 02/18/2020 10:20:00 AM EST BRYAN ([facility]) Name Value Range Interpretation Code Description Data Kaye rce(s) Supporting Document(s) glucose, fasting 199 mg/dL 70-100 Above high normal Glucose, Fas ting ROMAN ([facility]) blood urea nitrogen 32 mg/dL 7-18 Above high normal Blood Ure a Nitrogen ROMAN ([facility]) creatinine for GFR 1.38 mg/dL 0.55-1.30 Above high normal Creatinine for GFR ROMAN ([facility]) glomerular filtration rate >58 Below low normal Beata merular Filtration Rate ROMAN ([facility]) potassium serum 3.8 mEq/L 3.5-5.1 Potassium Serum ATHE NA ([facility]) sodium level 139 mEq/L 136-145 Sodium Level ROMAN (No [facility]) carbon dioxide level 25 mEq/L 21-32 Carbon Dioxide Level ROMAN ([facility]) chloride level 109 mEq/L 98-107 Above high normal Chloride Level ROMAN ([facility]) anion gap 5 mEq/L 8-16 Below low normal Anion Gap ROMAN ( [facility]) calcium level 8.2 mg/dL 8.5-10.1 Below low normal Calcium Level AT [facility] ([facility]) ID Date Data Source [id number] 02/18/2020 10:20:00 AM EST BRYAN ([facility]) Name Value Range Interpretation Code Description Data Kaye rce(s) Supporting Document(s) phosphorus level 1.4 mg/dL 2.5-4.9 Below low normal Phosphorus Le analia ROMAN ([facility]) ID Date Data Source [id number] 02/18/2020 10:20:00 AM EST BRYAN ([facility]) Name Value Range Interpretation Code Description Data Kaye rce(s) Supporting Document(s) glucose, fasting 199 mg/dL 70-100 Above high normal Glucose, Fas ting ROMAN ([facility]) creatinine for GFR 1.38 mg/dL 0.55-1.30 Above high normal Creatinine for GFR ROMAN ([facility]) blood urea nitrogen 32 mg/dL 7-18 Above high normal Blood Ure a Nitrogen ROMAN ([facility]) sodium level 139 mEq/L 136-145 Sodium Level ROMAN ([facility]) glomerular filtration rate >58 Below low normal Beata merular Filtration Rate ROMAN ([facility]) chloride level 109 mEq/L 98-107 Above high normal Chloride Level ROMAN ([facility]) potassium serum 3.8 mEq/L 3.5-5.1 Potassium Serum ATHE NA ([facility]) calcium level 8.2 mg/dL 8.5-10.1 Below low normal Calcium Level AT [facility] ([facility]) carbon dioxide level 25 mEq/L 21-32 Carbon Dioxide Level ROMAN ([facility]) anion gap 5 mEq/L 8-16 Below low normal Anion Gap ROMAN ( [facility]) ID Date Data Source [id number] 02/18/2020 10:20:00 AM EST ROMAN ([facility]) Name Value Range Interpretation Code Description Data Kaye rce(s) Supporting Document(s) glucose, fasting 199 mg/dL 70-100 Above high normal Glucose, Fas ting ROMAN ([facility]) creatinine for GFR 1.38 mg/dL 0.55-1.30 Above high normal Creatinine for GFR ROMAN ([facility]) blood urea nitrogen 32 mg/dL 7-18 Above high normal Blood Ure a Nitrogen ROMAN ([facility]) sodium level 139 mEq/L 136-145 Sodium Level ROMAN (No [facility]) glomerular filtration rate >58 Below low normal Beata merular Filtration Rate ROMAN ([facility]) potassium serum 3.8 mEq/L 3.5-5.1 Potassium Serum ATHE NA ([facility]) chloride level 109 mEq/L 98-107 Above high normal Chloride Level ROMAN ([facility]) carbon dioxide level 25 mEq/L 21-32 Carbon Dioxide Level ROMAN ([facility]) anion gap 5 mEq/L 8-16 Below low normal Anion Gap ROMAN ( [facility]) calcium level 8.2 mg/dL 8.5-10.1 Below low normal Calcium Level AT [facility] ([facility]) ID Date Data Source [id number] 02/18/2020 10:20:00 AM EST ROMAN ([facility]) Name Value Range Interpretation Code Description Data Kaye rce(s) Supporting Document(s) phosphorus level 1.4 mg/dL 2.5-4.9 Below low normal Phosphorus Le analia ROMAN ([facility]) ID Date Data Source [id number] 02/18/2020 10:20:00 AM EST ROMAN ([facility]) Name Value Range Interpretation Code Description Data Kaye rce(s) Supporting Document(s) blood urea nitrogen 32 mg/dL 7-18 Above high normal Blood Ure a Nitrogen ROMAN ([facility]) glucose, fasting 199 mg/dL 70-100 Above high normal Glucose, Fas ting ROAMN ([facility]) creatinine for GFR 1.38 mg/dL 0.55-1.30 Above high normal Creatinine for GFR ROMAN ([facility]) glomerular filtration rate >58 Below low normal Beata merular Filtration Rate ROMAN ([facility]) sodium level 139 mEq/L 136-145 Sodium Level ROMAN ([facility]) potassium serum 3.8 mEq/L 3.5-5.1 Potassium Serum ATH NA ([facility]) carbon dioxide level 25 mEq/L 21-32 Carbon Dioxide Level BRYAN ([facility]) chloride level 109 mEq/L 98-107 Above high normal Chloride Level BRYAN ([facility]) anion gap 5 mEq/L 8-16 Below low normal Anion Gap BRYAN ( [facility]) calcium level 8.2 mg/dL 8.5-10.1 Below low normal Calcium Level AT [facility] ([facility]) ID Date Data Source [id number] 02/18/2020 09:01:00 AM EST [facility]) Name Value Range Interpretation Code Description Data Kaye rce(s) Supporting Document(s) bedside glucose 112 mg/dL 70-105 Above high normal Bedside Gluco se [facility]) ID Date Data Source [id number] 02/18/2020 09:01:00 AM EST [facility]) Name Value Range Interpretation Code Description Data Kaye rce(s) Supporting Document(s) bedside glucose 112 mg/dL 70-105 Above high normal Bedside Gluco se [facility]) ID Date Data Source [id number] 02/18/2020 09:01:00 AM EST [facility]) Name Value Range Interpretation Code Description Data Kaye rce(s) Supporting Document(s) bedside glucose 112 mg/dL 70-105 Above high normal Bedside Gluco se ROMAN ([facility]) ID Date Data Source [id number] 02/18/2020 09:01:00 AM EST ROMAN ([facility]) Name Value Range Interpretation Code Description Data Kaye rce(s) Supporting Document(s) bedside glucose 112 mg/dL 70-105 Above high normal Bedside Gluco se ROMAN ([facility]) ID Date Data Source [id number] 02/18/2020 09:01:00 AM EST ROMAN ([facility]) Name Value Range Interpretation Code Description Data Kaye rce(s) Supporting Document(s) bedside glucose 112 mg/dL 70-105 Above high [facility] Data Source [id number] 02/18/2020 09:01:00 AM EST ROMAN ([facility]) Name Value Range Interpretation Code Description Data Kaye rce(s) Supporting Document(s) bedside glucose 112 mg/dL 70-105 Above high normal [facility] Date Data Source [id number] 02/18/2020 09:01:00 AM EST ROMAN ([facility]) Name Value Range Interpretation Code Description Data Kaye rce(s) Supporting Document(s) bedside glucose 112 mg/dL 70-105 Above high normal [facility] Date Data Source [id number] 02/18/2020 08:03:00 AM EST ROMAN [facility]) Name Value Range Interpretation Code Description Data Kaye rce(s) Supporting Document(s) bedside glucose 123 mg/dL 70-105 Above high normal [facility] ID Date Data Source [id number] 02/18/2020 08:03:00 AM EST ROMAN ([facility]) Name Value Range Interpretation Code Description Data Kaye rce(s) Supporting Document(s) bedside glucose 123 mg/dL 70-105 Above high normal Bedside Gluco se ROMAN ([facility]) ID Date Data Source [id number] 02/18/2020 08:03:00 AM EST RMOAN ([facility]) Name Value Range Interpretation Code Description Data Kaye rce(s) Supporting Document(s) bedside glucose 123 mg/dL 70-105 Above high normal Bedside Gluco se ROMAN ([facility]) ID Date Data Source [id number] 02/18/2020 08:03:00 AM EST ROMAN ([facility]) Name Value Range Interpretation Code Description Data Kaye rce(s) Supporting Document(s) bedside glucose 123 mg/dL 70-105 Above high normal Bedside Gluco se ROMAN ([facility]) ID Date Data Source [id number] 02/18/2020 08:03:00 AM EST ROMAN ([facility]) Name Value Range Interpretation Code Description Data Kaye rce(s) Supporting Document(s) bedside glucose 123 mg/dL 70-105 Above high normal Bedside Gluco se ROMAN ([facility]) ID Date Data Source [id number] 02/18/2020 08:03:00 AM EST ROMAN ([facility]) Name Value Range Interpretation Code Description Data Kaye rce(s) Supporting Document(s) bedside glucose 123 mg/dL 70-105 Above high normal Bedside Gluco se ROMAN ([facility]) ID Date Data Source [id number] 02/18/2020 08:03:00 AM EST ROMAN ([facility]) Name Value Range Interpretation Code Description Data Kaye rce(s) Supporting Document(s) bedside glucose 123 mg/dL 70-105 Above high normal Bedside Gluco se ROMAN ([facility]) ID Date Data Source [id number] 02/18/2020 07:03:00 AM EST ROMAN ([facility]) Name Value Range Interpretation Code Description Data Kaye rce(s) Supporting Document(s) bedside glucose 156 mg/dL 70-105 Above high normal Bedside Gluco se ROMAN ([facility]) ID Date Data Source [id number] 02/18/2020 07:03:00 AM EST ROMAN ([facility]) Name Value Range Interpretation Code Description Data Kaye rce(s) Supporting Document(s) bedside glucose 156 mg/dL 70-105 Above high normal Bedside Gluco se BRYAN ([facility]) ID Date Data Source [id number] 02/18/2020 07:03:00 AM EST BRYAN ([facility]) Name Value Range Interpretation Code Description Data Kaye rce(s) Supporting Document(s) bedside glucose 156 mg/dL 70-105 Above high normal Bedside Gluco se ROMAN ([facility]) ID Date Data Source [id number] 02/18/2020 07:03:00 [facility] Name Value Range Interpretation Code Description Data Kaye rce(s) Supporting Document(s) bedside glucose 156 mg/dL 70-105 Above high normal Bedside Gluco se ROMAN ([facility]) ID Date Data Source [id number] 02/18/2020 07:03:00 AM EST ROMAN ([facility]) Name Value Range Interpretation Code Description Data Kaye rce(s) Supporting Document(s) bedside glucose 156 mg/dL 70-105 Above high normal [facility] ID Date Data Source [id number] 02/18/2020 07:03:00 AM EST ROMAN ([facility]) Name Value Range Interpretation Code Description Data Kaye rce(s) Supporting Document(s) bedside glucose 156 mg/dL 70-105 Above high normal Bedside Gluco se ROMAN ([facility]) ID Date Data Source [id number] 02/18/2020 07:03:00 AM EST ROMAN ([facility]) Name Value Range Interpretation Code Description Data Kaye rce(s) Supporting Document(s) bedside glucose 156 mg/dL 70-105 Above high normal Bedside Gluco se ROMAN ([facility]) ID Date Data Source [id number] 02/18/2020 06:32:00 AM EST ROMAN ([facility]) Name Value Range Interpretation Code Description Data Kaye rce(s) Supporting Document(s) phosphorus level 2.0 mg/dL 2.5-4.9 Below low normal Phosphorus Le analia ROMAN ([facility]) ID Date Data Source [id number] 02/18/2020 06:32:00 AM EST ROMAN ([facility]) Name Value Range Interpretation Code Description Data Kaye rce(s) Supporting Document(s) glucose, fasting 137 mg/dL 70-100 Above high normal Glucose, Fas ting ROMAN ([facility]) blood urea nitrogen 36 mg/dL 7-18 Above high normal Blood Ure a Nitrogen ROMAN ([facility]) creatinine for GFR 1.35 mg/dL 0.55-1.30 Above high normal Creatinine for GFR ROMAN ([facility]) sodium level 140 mEq/L 136-145 Sodium Level ROMAN ([facility]) glomerular filtration rate >58 Below low normal Beata merular Filtration Rate ROMAN ([facility]) chloride level 109 mEq/L 98-107 Above high normal Chloride Level BRYAN ([facility]) potassium serum 4.2 mEq/L 3.5-5.1 Potassium Serum ATHE NA ([facility]) anion gap 8 mEq/L 8-16 Anion Gap ROMAN ([facility]) carbon dioxide level 23 mEq/L 21-32 Carbon Dioxide Level BRYAN ([facility]) calcium level 8.4 mg/dL 8.5-10.1 Below low normal Calcium Level AT [facility]) ID Date Data Source [id number] 02/18/2020 06:32:00 AM EST [facility]) Name Value Range Interpretation Code Description Data Kaye rce(s) Supporting Document(s) hemoglobin 9.6 g/dL 12.0-15.5 Below low normal Hemoglobin BRYAN ( [facility]) red blood count 3.39 10 4.00-5.40 Below low normal Red Blood Coun t BRYAN ([facility]) white blood count 6.9 10 4.0-10.0 White Blood Count BRYAN ([facility]) mean corpuscular volume 84.7 fL 80.0-96.0 Mean Corpusc ular Volume BRYAN ([facility]) hematocrit 28.7 % 36.0-47.0 Below low normal Hematocrit BRYAN ( [facility]) mean corpuscular hemoglobin 28.3 pg 27.0-33.0 Mean Cor puscular Hemoglobin BRYAN ([facility]) mean corpuscular HGB conc 33.4 g/dL 32.0-36.5 Mean Corpu scular HGB Conc BRYAN ([facility]) red cell distribution width 14.8 % 11.5-14.5 Above high no rmal Red Cell Distribution Width BRYAN ([facility]) platelet count, automated 300 10 150-450 Platelet C ount, Automated BRYAN ([facility]) nucleated red blood cell % 0.0 % 0-0 Nucleated Red Blood Cell % BRYAN ([facility]) ID Date Data Source [id number] 02/18/2020 06:32:00 AM EST [facility]) Name Value Range Interpretation Code Description Data Kaye rce(s) Supporting Document(s) phosphorus level 2.0 mg/dL 2.5-4.9 Below low normal Phosphorus Le analia ROMAN ([facility]) ID Date Data Source [id number] 02/18/2020 06:32:00 AM EST ROMAN ([facility]) Name Value Range Interpretation Code Description Data Kaye rce(s) Supporting Document(s) glucose, fasting 137 mg/dL 70-100 Above high normal Glucose, Fas ting ROMAN ([facility]) blood urea nitrogen 36 mg/dL 7-18 Above high normal Blood Ure a Nitrogen ROMAN ([facility]) creatinine for GFR 1.35 mg/dL 0.55-1.30 Above high normal Creatinine for GFR BRYAN ([facility]) glomerular filtration rate >58 Below low normal Beata merular Filtration Rate BRYAN ([facility]) potassium serum 4.2 mEq/L 3.5-5.1 Potassium Serum ATH NA ([facility]) chloride level 109 mEq/L 98-107 Above high normal Chloride Level ROMAN ([facility]) sodium level 140 mEq/L 136-145 Sodium Level ROMAN ([facility]) carbon dioxide level 23 mEq/L 21-32 Carbon Dioxide Level BRYAN ([facility]) anion gap 8 mEq/L 8-16 Anion Gap ROMAN ([facility]) calcium level 8.4 mg/dL 8.5-10.1 Below low normal Calcium Level AT [facility]) ID Date Data Source [id number] 02/18/2020 06:32:00 AM EST BRYAN ([facility]) Name Value Range Interpretation Code Description Data Kaye rce(s) Supporting Document(s) white blood count 6.9 10 4.0-10.0 White Blood Count BRYAN ([facility]) red blood count 3.39 10 4.00-5.40 Below low normal Red Blood Coun t BRYAN ([facility]) hemoglobin 9.6 g/dL 12.0-15.5 Below low normal Hemoglobin BRYAN ( [facility]) mean corpuscular volume 84.7 fL 80.0-96.0 Mean Corpusc ular Volume ROMAN ([facility]) hematocrit 28.7 % 36.0-47.0 Below low normal Hematocrit ROMAN ( [facility]) mean corpuscular hemoglobin 28.3 pg 27.0-33.0 Mean Cor puscular Hemoglobin ROMAN ([facility]) mean corpuscular HGB conc 33.4 g/dL 32.0-36.5 Mean Corpu scular HGB Conc ROMAN ([facility]) red cell distribution width 14.8 % 11.5-14.5 Above high no rmal Red Cell Distribution Width ROMAN ([facility]) platelet count, automated 300 10 150-450 Platelet C ount, Automated ROMAN ([facility]) nucleated red blood cell % 0.0 % 0-0 Nucleated Red Blood Cell % BRYAN ([facility]) ID Date Data Source [id number] 02/18/2020 06:32:00 AM EST BRYAN ([facility]) Name Value Range Interpretation Code Description Data Kaye rce(s) Supporting Document(s) phosphorus level 2.0 mg/dL 2.5-4.9 Below low normal Phosphorus Le analia BRYAN ([facility]) ID Date Data Source [id number] 02/18/2020 06:32:00 AM EST BRYAN ([facility]) Name Value Range Interpretation Code Description Data Kaye rce(s) Supporting Document(s) glucose, fasting 137 mg/dL 70-100 Above high normal Glucose, Fas ting ROMAN ([facility]) creatinine for GFR 1.35 mg/dL 0.55-1.30 Above high normal Creatinine for GFR ROMAN ([facility]) blood urea nitrogen 36 mg/dL 7-18 Above high normal Blood Ure a Nitrogen ROMAN ([facility]) glomerular filtration rate >58 Below low normal Beata merular Filtration Rate ROMAN ([facility]) sodium level 140 mEq/L 136-145 Sodium Level ROMAN (No [facility]) potassium serum 4.2 mEq/L 3.5-5.1 Potassium Serum ATHE NA ([facility]) chloride level 109 mEq/L 98-107 Above high normal Chloride Level ROMAN ([facility]) carbon dioxide level 23 mEq/L 21-32 Carbon Dioxide Level ROMAN ([facility]) anion gap 8 mEq/L 8-16 Anion Gap RMOAN ([facility]) calcium level 8.4 mg/dL 8.5-10.1 Below low normal Calcium Level AT [facility] ([facility]) ID Date Data Source [id number] 02/18/2020 06:32:00 AM EST ROMAN ([facility]) Name Value Range Interpretation Code Description Data Kaye rce(s) Supporting Document(s) white blood count 6.9 10 4.0-10.0 White Blood Count [facility] [facility]) red blood count 3.39 10 4.00-5.40 Below low normal Red Blood Coun t ROMAN ([facility]) hemoglobin 9.6 g/dL 12.0-15.5 Below low normal Hemoglobin ROMAN ( [facility]) hematocrit 28.7 % 36.0-47.0 Below low normal Hematocrit ROMAN ( [facility]) mean corpuscular volume 84.7 fL 80.0-96.0 Mean Corpusc ular Volume ROMAN ([facility]) mean corpuscular HGB conc 33.4 g/dL 32.0-36.5 Mean Corpu scular HGB Conc ROMAN ([facility]) mean corpuscular hemoglobin 28.3 pg 27.0-33.0 Mean Cor puscular Hemoglobin ROMAN ([facility]) platelet count, automated 300 10 150-450 Platelet C ount, Automated ROMAN ([facility]) red cell distribution width 14.8 % 11.5-14.5 Above high no rmal Red Cell Distribution Width ROMAN ([facility]) nucleated red blood cell % 0.0 % 0-0 Nucleated Red Blood Cell % ROMAN ([facility]) ID Date Data Source [id number] 02/18/2020 06:32:00 AM EST ROMAN ([facility]) Name Value Range Interpretation Code Description Data Kaye rce(s) Supporting Document(s) phosphorus level 2.0 mg/dL 2.5-4.9 Below low normal Phosphorus Le analia ROMAN ([facility]) ID Date Data Source [id number] 02/18/2020 06:32:00 AM EST ROMAN ([facility]) Name Value Range Interpretation Code Description Data Kaye rce(s) Supporting Document(s) glucose, fasting 137 mg/dL 70-100 Above high normal Glucose, Fas ting ROMAN ([facility]) blood urea nitrogen 36 mg/dL 7-18 Above high normal Blood Ure a Nitrogen ROMAN ([facility]) creatinine for GFR 1.35 mg/dL 0.55-1.30 Above high normal Creatinine for GFR BRYAN ([facility]) glomerular filtration rate >58 Below low normal Beata merular Filtration Rate ROMAN ([facility]) potassium serum 4.2 mEq/L 3.5-5.1 Potassium Serum ATHE NA ([facility]) sodium level 140 mEq/L 136-145 Sodium Level ROMAN (No [facility]) chloride level 109 mEq/L 98-107 Above high normal Chloride Level ROMAN ([facility]) carbon dioxide level 23 mEq/L 21-32 Carbon Dioxide Level BRYAN ([facility]) anion gap 8 mEq/L 8-16 Anion Gap ROMAN ([facility]) calcium level 8.4 mg/dL 8.5-10.1 Below low normal Calcium Level AT TRAM ([facility]) ID Date Data Source [id number] 02/18/2020 06:32:00 AM EST ROMAN ([facility]) Name Value Range Interpretation Code Description Data Kaye rce(s) Supporting Document(s) white blood count 6.9 10 4.0-10.0 White Blood Count ROMAN ([facility]) red blood count 3.39 10 4.00-5.40 Below low normal Red Blood Coun t BRYAN ([facility]) hemoglobin 9.6 g/dL 12.0-15.5 Below low normal Hemoglobin ROMAN ( [facility]) hematocrit 28.7 % 36.0-47.0 Below low normal Hematocrit ROMAN ( [facility]) mean corpuscular volume 84.7 fL 80.0-96.0 Mean Corpusc ular Volume ROMAN ([facility]) mean corpuscular hemoglobin 28.3 pg 27.0-33.0 Mean Cor puscular Hemoglobin ROMAN ([facility]) red cell distribution width 14.8 % 11.5-14.5 Above high no rmal Red Cell Distribution Width ROMAN ([facility]) mean corpuscular HGB conc 33.4 g/dL 32.0-36.5 Mean Corpu scular HGB Conc BRYAN ([facility]) nucleated red blood cell % 0.0 % 0-0 Nucleated Red Blood Cell % BRYAN ([facility]) platelet count, automated 300 10 150-450 Platelet C ount, Automated BRYAN ([facility]) ID Date Data Source [id number] 02/18/2020 06:32:00 AM EST BRYAN ([facility]) Name Value Range Interpretation Code Description Data Kaye rce(s) Supporting Document(s) phosphorus level 2.0 mg/dL 2.5-4.9 Below low normal Phosphorus Le analia BRYAN ([facility]) ID Date Data Source [id number] 02/18/2020 06:32:00 AM EST BRYAN ([facility]) Name Value Range Interpretation Code Description Data Kaye rce(s) Supporting Document(s) glucose, fasting 137 mg/dL 70-100 Above high normal Glucose, Fas ting ROMAN ([facility]) blood urea nitrogen 36 mg/dL 7-18 Above high normal Blood Ure a Nitrogen BRYAN ([facility]) creatinine for GFR 1.35 mg/dL 0.55-1.30 Above high normal Creatinine for GFR BRYAN ([facility]) glomerular filtration rate >58 Below low normal Beata merular Filtration Rate ROMAN ([facility]) sodium level 140 mEq/L 136-145 Sodium Level ROMAN ([facility]) potassium serum 4.2 mEq/L 3.5-5.1 Potassium Serum ATHE NA ([facility]) carbon dioxide level 23 mEq/L 21-32 Carbon Dioxide Level ROMAN ([facility]) chloride level 109 mEq/L 98-107 Above high normal Chloride Level ROMAN ([facility]) anion gap 8 mEq/L 8-16 Anion Gap ROMAN ([facility]) calcium level 8.4 mg/dL 8.5-10.1 Below low normal Calcium Level AT [facility]) ID Date Data Source [id number] 02/18/2020 06:32:00 AM EST [facility]) Name Value Range Interpretation Code Description Data Kaye rce(s) Supporting Document(s) white blood count 6.9 10 4.0-10.0 White Blood Count ROMAN ([facility]) red blood count 3.39 10 4.00-5.40 Below low normal Red Blood Coun t BRYAN ([facility]) hemoglobin 9.6 g/dL 12.0-15.5 Below low normal Hemoglobin ROMAN ( [facility]) hematocrit 28.7 % 36.0-47.0 Below low normal Hematocrit ROMAN ( [facility]) mean corpuscular hemoglobin 28.3 pg 27.0-33.0 Mean Cor puscular Hemoglobin ROMAN ([facility]) mean corpuscular volume 84.7 fL 80.0-96.0 Mean Corpusc ular Volume ROMAN ([facility]) red cell distribution width 14.8 % 11.5-14.5 Above high no rmal Red Cell Distribution Width ROMAN ([facility]) mean corpuscular HGB conc 33.4 g/dL 32.0-36.5 Mean Corpu scular HGB Conc ROMAN ([facility]) platelet count, automated 300 10 150-450 Platelet C ount, Automated ROMAN ([facility]) nucleated red blood cell % 0.0 % 0-0 Nucleated Red Blood Cell % ROMAN ([facility]) ID Date Data Source [id number] 02/18/2020 06:32:00 AM EST ROMAN ([facility]) Name Value Range Interpretation Code Description Data Kaye rce(s) Supporting Document(s) phosphorus level 2.0 mg/dL 2.5-4.9 Below low normal Phosphorus Le analia ROMAN ([facility]) ID Date Data Source [id number] 02/18/2020 06:32:00 AM EST ROMAN ([facility]) Name Value Range Interpretation Code Description Data Kaye rce(s) Supporting Document(s) blood urea nitrogen 36 mg/dL 7-18 Above high normal Blood Ure a Nitrogen ROMAN ([facility]) glucose, fasting 137 mg/dL 70-100 Above high normal Glucose, Fas ting ROMAN ([facility]) creatinine for GFR 1.35 mg/dL 0.55-1.30 Above high normal Creatinine for GFR ROMAN ([facility]) glomerular filtration rate >58 Below low normal Beata merular Filtration Rate ROMAN ([facility]) potassium serum 4.2 mEq/L 3.5-5.1 Potassium Serum ATHE NA ([facility]) sodium level 140 mEq/L 136-145 Sodium Level ROMAN ([facility]) carbon dioxide level 23 mEq/L 21-32 Carbon Dioxide Level ROMAN ([facility]) chloride level 109 mEq/L 98-107 Above high normal Chloride Level ROMAN ([facility]) anion gap 8 mEq/L 8-16 Anion Gap ROMAN ([facility]) calcium level 8.4 mg/dL 8.5-10.1 Below low normal Calcium Level AT TRAM ([facility]) ID Date Data Source [id number] 02/18/2020 06:32:00 AM EST ROMAN ([facility]) Name Value Range Interpretation Code Description Data Kaye rce(s) Supporting Document(s) white blood count 6.9 10 4.0-10.0 White Blood Count ROMAN ([facility]) red blood count 3.39 10 4.00-5.40 Below low normal Red Blood Coun t ROMAN ([facility]) hemoglobin 9.6 g/dL 12.0-15.5 Below low normal Hemoglobin ROMAN ( [facility]) hematocrit 28.7 % 36.0-47.0 Below low normal Hematocrit BRYAN ( [facility]) mean corpuscular volume 84.7 fL 80.0-96.0 Mean Corpusc ular Volume BRYAN ([facility]) mean corpuscular HGB conc 33.4 g/dL 32.0-36.5 Mean Corpu scular HGB Conc BRYAN ([facility]) mean corpuscular hemoglobin 28.3 pg 27.0-33.0 Mean Cor puscular Hemoglobin BRYAN ([facility]) red cell distribution width 14.8 % 11.5-14.5 Above high no rmal Red Cell Distribution Width BRYAN ([facility]) platelet count, automated 300 10 150-450 Platelet C ount, Automated BRYAN ([facility]) nucleated red blood cell % 0.0 % 0-0 Nucleated Red Blood Cell % BRYAN ([facility]) ID Date Data Source [id number] 02/18/2020 06:32:00 AM EST BRYAN ([facility]) Name Value Range Interpretation Code Description Data Kaye rce(s) Supporting Document(s) phosphorus level 2.0 mg/dL 2.5-4.9 Below low normal Phosphorus Le analia BRYAN ([facility]) ID Date Data Source [id number] 02/18/2020 06:32:00 AM EST BRYAN ([facility]) Name Value Range Interpretation Code Description Data Kaye rce(s) Supporting Document(s) glucose, fasting 137 mg/dL 70-100 Above high normal Glucose, Fas ting ROMAN ([facility]) blood urea nitrogen 36 mg/dL 7-18 Above high normal Blood Ure a Nitrogen BRYAN ([facility]) creatinine for GFR 1.35 mg/dL 0.55-1.30 Above high normal Creatinine for GFR ROMAN ([facility]) sodium level 140 mEq/L 136-145 Sodium Level ROMAN ([facility]) glomerular filtration rate >58 Below low normal Beata merular Filtration Rate ROMAN ([facility]) potassium serum 4.2 mEq/L 3.5-5.1 Potassium Serum ATHE NA ([facility]) chloride level 109 mEq/L 98-107 Above high normal Chloride Level ROMAN ([facility]) anion gap 8 mEq/L 8-16 Anion Gap ROMAN ([facility]) carbon dioxide level 23 mEq/L 21-32 Carbon Dioxide Level BRYAN ([facility]) calcium level 8.4 mg/dL 8.5-10.1 Below low normal Calcium Level AT [facility]) ID Date Data Source [id number] 02/18/2020 06:32:00 AM EST [facility]) Name Value Range Interpretation Code Description Data Kaye rce(s) Supporting Document(s) red blood count 3.39 10 4.00-5.40 Below low normal Red Blood Coun t BRYAN ([facility]) white blood count 6.9 10 4.0-10.0 White Blood Count [facility]) hemoglobin 9.6 g/dL 12.0-15.5 Below low normal Hemoglobin BRYAN ( [facility]) hematocrit 28.7 % 36.0-47.0 Below low normal Hematocrit BRYAN ( [facility]) mean corpuscular hemoglobin 28.3 pg 27.0-33.0 Mean Cor puscular Hemoglobin BRYAN ([facility]) mean corpuscular volume 84.7 fL 80.0-96.0 Mean Corpusc ular Volume BRYAN ([facility]) red cell distribution width 14.8 % 11.5-14.5 Above high no rmal Red Cell Distribution Width ROMAN ([facility]) mean corpuscular HGB conc 33.4 g/dL 32.0-36.5 Mean Corpu scular HGB Conc ROMAN ([facility]) platelet count, automated 300 10 150-450 Platelet C ount, Automated BRYAN ([facility]) nucleated red blood cell % 0.0 % 0-0 Nucleated Red Blood Cell % BRYAN ([facility]) ID Date Data Source [id number] 02/18/2020 06:19:00 AM EST ROMAN ([facility]) Name Value Range Interpretation Code Description Data Kaye rce(s) Supporting Document(s) bedside glucose 122 mg/dL 70-105 Above high normal Bedside Gluco se BRYAN ([facility]) ID Date Data Source [id number] 02/18/2020 06:19:00 AM EST ROMAN ([facility]) Name Value Range Interpretation Code Description Data Kaye rce(s) Supporting Document(s) bedside glucose 122 mg/dL 70-105 Above high normal Bedside Gluco se BRYAN ([facility]) ID Date Data Source [id number] 02/18/2020 06:19:00 AM EST [facility]) Name Value Range Interpretation Code Description Data Kaye rce(s) Supporting Document(s) bedside glucose 122 mg/dL 70-105 Above high normal Bedside Gluco se [facility]) ID Date Data Source [id number] 02/18/2020 06:19:00 AM EST ROMAN ([facility]) Name Value Range Interpretation Code Description Data Kaye rce(s) Supporting Document(s) bedside glucose 122 mg/dL 70-105 Above high normal Bedside Gluco se [facility]) ID Date Data Source [id number] 02/18/2020 06:19:00 AM EST ROMAN [facility]) Name Value Range Interpretation Code Description Data Kaye rce(s) Supporting Document(s) bedside glucose 122 mg/dL 70-105 Above high normal [facility] Date Data Source [id number] 02/18/2020 06:19:00 AM EST ROMAN ([facility]) Name Value Range Interpretation Code Description Data Kaye rce(s) Supporting Document(s) bedside glucose 122 mg/dL 70-105 Above high normal Bedside Gluco se ROMAN ([facility]) ID Date Data Source [id number] 02/18/2020 06:19:00 AM EST ROMAN ([facility]) Name Value Range Interpretation Code Description Data Kaye rce(s) Supporting Document(s) bedside glucose 122 mg/dL 70-105 Above high normal Bedside Gluco se ROMAN ([facility]) ID Date Data Source [id number] 02/18/2020 05:24:00 AM EST ROMAN ([facility]) Name Value Range Interpretation Code Description Data Kaye rce(s) Supporting Document(s) bedside glucose 82 mg/dL 70-105 Bedside Glucose ATHE NA ([facility]) ID Date Data Source [id number] 02/18/2020 05:24:00 [facility] Name Value Range Interpretation Code Description Data Kaye rce(s) Supporting Document(s) bedside glucose 82 mg/dL 70-105 Bedside Glucose ATHE NA ([facility]) ID Date Data Source [id number] 02/18/2020 05:24:00 AM [facility] Name Value Range Interpretation Code Description Data Kaye rce(s) Supporting Document(s) bedside glucose 82 mg/dL 70-105 Bedside Glucose ATHE NA ([facility]) ID Date Data Source [id number] 02/18/2020 05:24:00 AM EST ROMAN [facility]) Name Value Range Interpretation Code Description Data Kaye rce(s) Supporting Document(s) bedside glucose 82 mg/dL 70-105 Bedside Glucose ATHE TIAGO ([facility]) ID Date Data Source [id number] 02/18/2020 05:24:00 AM EST ROMAN ([facility]) Name Value Range Interpretation Code Description Data Kaye rce(s) Supporting Document(s) bedside glucose 82 mg/dL 70-105 Bedside Glucose ATHE TIAGO ([facility]) ID Date Data Source [id number] 02/18/2020 05:24:00 AM EST ROMAN ([facility]) Name Value Range Interpretation Code Description Data Kaye rce(s) Supporting Document(s) bedside glucose 82 mg/dL 70-105 Bedside Glucose ATHE TIAGO ([facility]) ID Date Data Source [id number] 02/18/2020 05:24:00 AM EST ROMAN ([facility]) Name Value Range Interpretation Code Description Data Kaye rce(s) Supporting Document(s) bedside glucose 82 mg/dL 70-105 Bedside Glucose ATHE TIAGO ([facility]) ID Date Data Source [id number] 02/18/2020 04:20:00 [facility] Name Value Range Interpretation Code Description Data Kaye rce(s) Supporting Document(s) bedside glucose 101 mg/dL 70-105 Bedside Glucose ATHE TIAGO ([facility]) ID Date Data Source [id number] 02/18/2020 04:20:00 AM EST ROMAN ([facility]) Name Value Range Interpretation Code Description Data Kaye rce(s) Supporting Document(s) bedside glucose 101 mg/dL 70-105 Bedside Glucose ATHE TIAGO ([facility]) ID Date Data Source [id number] 02/18/2020 04:20:00 AM EST ROMAN ([facility]) Name Value Range Interpretation Code Description Data Kaye rce(s) Supporting Document(s) bedside glucose 101 mg/dL 70-105 Bedside Glucose ATHVanessa ORDOÑEZ ([facility]) ID Date Data Source [id number] 02/18/2020 04:20:00 AM EST ROMAN ([facility]) Name Value Range Interpretation Code Description Data Kaye rce(s) Supporting Document(s) bedside glucose 101 mg/dL 70-105 Bedside Glucose ATHE TIAGO ([facility]) ID Date Data Source [id number] 02/18/2020 04:20:00 AM EST ROMAN ([facility]) Name Value Range Interpretation Code Description Data Kaey rce(s) Supporting Document(s) bedside glucose 101 mg/dL 70-105 Bedside Glucose ATHE TIAGO ([facility]) ID Date Data Source [id number] 02/18/2020 04:20:00 AM EST ROMAN ([facility]) Name Value Range Interpretation Code Description Data Kaye rce(s) Supporting Document(s) bedside glucose 101 mg/dL 70-105 Bedside Glucose ATHE TIAGO ([facility]) ID Date Data Source [id number] 02/18/2020 04:20:00 AM EST ROMAN ([facility]) Name Value Range Interpretation Code Description Data Kaye rce(s) Supporting Document(s) bedside glucose 101 mg/dL 70-105 Bedside Glucose ATHE TIAGO ([facility]) ID Date Data Source [id number] 02/18/2020 03:13:00 AM EST ROMAN ([facility]) Name Value Range Interpretation Code Description Data Kaye rce(s) Supporting Document(s) bedside glucose 133 mg/dL 70-105 Above high normal Bedside Gluco se ROMAN ([facility]) ID Date Data Source [id number] 02/18/2020 03:13:00 AM EST ROMAN ([facility]) Name Value Range Interpretation Code Description Data Kaye rce(s) Supporting Document(s) bedside glucose 133 mg/dL 70-105 Above high normal Bedside Gluco se ROMAN ([facility]) ID Date Data Source [id number] 02/18/2020 03:13:00 AM EST ROMAN ([facility]) Name Value Range Interpretation Code Description Data Kaye rce(s) Supporting Document(s) bedside glucose 133 mg/dL 70-105 Above high normal Bedside Gluco se ROMAN ([facility]) ID Date Data Source [id number] 02/18/2020 03:13:00 AM EST ROMAN ([facility]) Name Value Range Interpretation Code Description Data Kaye rce(s) Supporting Document(s) bedside glucose 133 mg/dL 70-105 Above high normal Bedside Gluco se ROMAN ([facility]) ID Date Data Source [id number] 02/18/2020 03:13:00 AM EST ROMAN ([facility]) Name Value Range Interpretation Code Description Data Kaye rce(s) Supporting Document(s) bedside glucose 133 mg/dL 70-105 Above high normal Bedside Gluco se ROMAN ([facility]) ID Date Data Source [id number] 02/18/2020 03:13:00 AM EST ROMAN ([facility]) Name Value Range Interpretation Code Description Data Kaye rce(s) Supporting Document(s) bedside glucose 133 mg/dL 70-105 Above high normal [facility] Date Data Source [id number] 02/18/2020 03:13:00 AM [facility] Name Value Range Interpretation Code Description Data Kaye rce(s) Supporting Document(s) bedside glucose 133 mg/dL 70-105 Above high normal Bedside Gluco se ROMAN ([facility]) ID Date Data Source [id number] 02/18/2020 02:25:00 AM EST ROMAN ([facility]) Name Value Range Interpretation Code Description Data Kaye rce(s) Supporting Document(s) phosphorus level 2.1 mg/dL 2.5-4.9 Below low normal Phosphorus Le analia ROMAN ([facility]) ID Date Data Source [id number] 02/18/2020 02:25:00 AM EST ROMAN ([facility]) Name Value Range Interpretation Code Description Data Kaye rce(s) Supporting Document(s) glucose, fasting 135 mg/dL 70-100 Above high normal Glucose, Fas ting BRYAN ([facility]) creatinine for GFR 1.64 mg/dL 0.55-1.30 Above high normal Creatinine for GFR BRYAN ([facility]) blood urea nitrogen 41 mg/dL 7-18 Above high normal Blood Ure a Nitrogen BRYAN ([facility]) glomerular filtration rate >58 Below low normal Beata merular Filtration Rate ROMAN ([facility]) sodium level 139 mEq/L 136-145 Sodium Level ROMAN (No [facility]) potassium serum 3.7 mEq/L 3.5-5.1 Potassium Serum ATHE NA ([facility]) chloride level 107 mEq/L 98-107 Chloride Level BRYAN ([facility]) carbon dioxide level 25 mEq/L 21-32 Carbon Dioxide Level BRYAN ([facility]) anion gap 7 mEq/L 8-16 Below low normal Anion Gap BRYAN ( [facility]) calcium level 8.2 mg/dL 8.5-10.1 Below low normal Calcium Level AT TRAM [facility]) ID Date Data Source [id number] 02/18/2020 02:25:00 AM EST [facility]) Name Value Range Interpretation Code Description Data Kaye rce(s) Supporting Document(s) phosphorus level 2.1 mg/dL 2.5-4.9 Below low normal Phosphorus Le analia ROMAN ([facility]) ID Date Data Source [id number] 02/18/2020 02:25:00 AM EST ROMAN ([facility]) Name Value Range Interpretation Code Description Data Kaye rce(s) Supporting Document(s) glucose, fasting 135 mg/dL 70-100 Above high normal Glucose, Fas ting ROMAN ([facility]) blood urea nitrogen 41 mg/dL 7-18 Above high normal Blood Ure a Nitrogen ROMAN ([facility]) creatinine for GFR 1.64 mg/dL 0.55-1.30 Above high normal Creatinine for GFR ROMAN ([facility]) glomerular filtration rate >58 Below low normal Beata merular Filtration Rate ROMAN ([facility]) sodium level 139 mEq/L 136-145 Sodium Level ROMAN ([facility]) potassium serum 3.7 mEq/L 3.5-5.1 Potassium Serum ATHE NA ([facility]) chloride level 107 mEq/L 98-107 Chloride Level ROMAN ([facility]) carbon dioxide level 25 mEq/L 21-32 Carbon Dioxide Level ROMAN ([facility]) anion gap 7 mEq/L 8-16 Below low normal Anion Gap ROMAN ( [facility]) calcium level 8.2 mg/dL 8.5-10.1 Below low normal Calcium Level AT TRAM ([facility] [facility] ID Date Data Source [id number] 02/18/2020 02:25:00 AM EST ROMAN ([facility]) Name Value Range Interpretation Code Description Data Kaye rce(s) Supporting Document(s) phosphorus level 2.1 mg/dL 2.5-4.9 Below low normal Phosphorus Le analia ROMAN ([facility]) ID Date Data Source [id number] 02/18/2020 02:25:00 AM EST ROMAN ([facility]) Name Value Range Interpretation Code Description Data Kaye rce(s) Supporting Document(s) glucose, fasting 135 mg/dL 70-100 Above high normal Glucose, Fas ting BRYAN ([facility]) blood urea nitrogen 41 mg/dL 7-18 Above high normal Blood Ure a Nitrogen ROMAN ([facility]) creatinine for GFR 1.64 mg/dL 0.55-1.30 Above high normal Creatinine for GFR ROMAN ([facility]) glomerular filtration rate >58 Below low normal Beata merular Filtration Rate ROMAN ([facility]) sodium level 139 mEq/L 136-145 Sodium Level ROMAN (No [facility]) potassium serum 3.7 mEq/L 3.5-5.1 Potassium Serum ATHE NA ([facility]) chloride level 107 mEq/L 98-107 Chloride Level BRYAN ([facility]) carbon dioxide level 25 mEq/L 21-32 Carbon Dioxide Level BRYAN ([facility]) calcium level 8.2 mg/dL 8.5-10.1 Below low normal Calcium Level AT [facility]) anion gap 7 mEq/L 8-16 Below low normal Anion Gap BRYAN ( [facility]) ID Date Data Source [id number] 02/18/2020 02:25:00 AM EST BRYAN ([facility]) Name Value Range Interpretation Code Description Data Kaye rce(s) Supporting Document(s) phosphorus level 2.1 mg/dL 2.5-4.9 Below low normal Phosphorus Le analia ROMAN ([facility]) ID Date Data Source [id number] 02/18/2020 02:25:00 AM EST BRYAN ([facility]) Name Value Range Interpretation Code Description Data Kaye rce(s) Supporting Document(s) glucose, fasting 135 mg/dL 70-100 Above high normal Glucose, Fas ting BRYAN ([facility]) creatinine for GFR 1.64 mg/dL 0.55-1.30 Above high normal Creatinine for GFR ROMAN ([facility]) blood urea nitrogen 41 mg/dL 7-18 Above high normal Blood Ure a Nitrogen ROMAN ([facility]) glomerular filtration rate >58 Below low normal Beata merular Filtration Rate ROMAN ([facility]) potassium serum 3.7 mEq/L 3.5-5.1 Potassium Serum ATHE NA ([facility]) sodium level 139 mEq/L 136-145 Sodium Level ROMAN (No [facility]) chloride level 107 mEq/L 98-107 Chloride Level ROMAN ([facility]) carbon dioxide level 25 mEq/L 21-32 Carbon Dioxide Level ROMAN ([facility]) anion gap 7 mEq/L 8-16 Below low normal Anion Gap ROMAN ( [facility]) calcium level 8.2 mg/dL 8.5-10.1 Below low normal Calcium Level AT TRAM ([facility]) ID Date Data Source [id number] 02/18/2020 02:25:00 AM EST BRYAN ([facility]) Name Value Range Interpretation Code Description Data Kaye rce(s) Supporting Document(s) phosphorus level 2.1 mg/dL 2.5-4.9 Below low normal Phosphorus Le analia ROMAN ([facility]) ID Date Data Source [id number] 02/18/2020 02:25:00 AM EST BRYAN ([facility]) Name Value Range Interpretation Code Description Data Kaye rce(s) Supporting Document(s) glucose, fasting 135 mg/dL 70-100 Above high normal Glucose, Fas ting ROMAN ([facility]) blood urea nitrogen 41 mg/dL 7-18 Above high normal Blood Ure a Nitrogen ROMAN ([facility]) glomerular filtration rate >58 Below low normal Beata merular Filtration Rate ROMAN ([facility]) creatinine for GFR 1.64 mg/dL 0.55-1.30 Above high normal Creatinine for GFR ROMAN ([facility]) sodium level 139 mEq/L 136-145 Sodium Level ROMAN (No [facility]) potassium serum 3.7 mEq/L 3.5-5.1 Potassium Serum ATHE NA ([facility]) carbon dioxide level 25 mEq/L 21-32 Carbon Dioxide Level ROMAN ([facility]) chloride level 107 mEq/L 98-107 Chloride Level ROMAN ([facility]) calcium level 8.2 mg/dL 8.5-10.1 Below low normal Calcium Level AT [facility] ([facility]) anion gap 7 mEq/L 8-16 Below low normal Anion Gap ROMAN ( [facility]) ID Date Data Source [id number] 02/18/2020 02:25:00 AM EST BRYAN ([facility]) Name Value Range Interpretation Code Description Data Kaye rce(s) Supporting Document(s) phosphorus level 2.1 mg/dL 2.5-4.9 Below low normal Phosphorus Le analia ROMAN ([facility]) ID Date Data Source [id number] 02/18/2020 02:25:00 AM EST BRYAN ([facility]) Name Value Range Interpretation Code Description Data Kaye rce(s) Supporting Document(s) glucose, fasting 135 mg/dL 70-100 Above high normal Glucose, Fas ting ROMAN ([facility]) creatinine for GFR 1.64 mg/dL 0.55-1.30 Above high normal Creatinine for GFR BRYAN ([facility]) blood urea nitrogen 41 mg/dL 7-18 Above high normal Blood Ure a Nitrogen ROMAN ([facility]) sodium level 139 mEq/L 136-145 Sodium Level ROMAN ([facility]) glomerular filtration rate >58 Below low normal Beata merular Filtration Rate ROMAN ([facility]) potassium serum 3.7 mEq/L 3.5-5.1 Potassium Serum ATHE NA ([facility]) carbon dioxide level 25 mEq/L 21-32 Carbon Dioxide Level ROMAN ([facility]) chloride level 107 mEq/L 98-107 Chloride Level ROMAN ([facility]) anion gap 7 mEq/L 8-16 Below low normal Anion Gap ROMAN ( [facility]) calcium level 8.2 mg/dL 8.5-10.1 Below low normal Calcium Level AT [facility] ([facility]) ID Date Data Source [id number] 02/18/2020 02:25:00 AM EST ROMAN ([facility]) Name Value Range Interpretation Code Description Data Kaye rce(s) Supporting Document(s) phosphorus level 2.1 mg/dL 2.5-4.9 Below low normal Phosphorus Le analia ROMAN ([facility]) ID Date Data Source [id number] 02/18/2020 02:25:00 AM EST ROMAN ([facility]) Name Value Range Interpretation Code Description Data Kaye rce(s) Supporting Document(s) glucose, fasting 135 mg/dL 70-100 Above high normal Glucose, Fas ting BRYAN ([facility]) creatinine for GFR 1.64 mg/dL 0.55-1.30 Above high normal Creatinine for GFR BRYAN ([facility]) blood urea nitrogen 41 mg/dL 7-18 Above high normal Blood Ure a Nitrogen BRYAN ([facility]) glomerular filtration rate >58 Below low normal Beata merular Filtration Rate BRYAN ([facility]) sodium level 139 mEq/L 136-145 Sodium Level ROMAN (No [facility]) potassium serum 3.7 mEq/L 3.5-5.1 Potassium Serum ATH NA ([facility]) chloride level 107 mEq/L 98-107 Chloride Level BRYAN ([facility]) carbon dioxide level 25 mEq/L 21-32 Carbon Dioxide Level BRYAN ([facility]) calcium level 8.2 mg/dL 8.5-10.1 Below low normal Calcium Level AT TRAM ([facility]) anion gap 7 mEq/L 8-16 Below low normal Anion Gap BRYAN ( [facility]) ID Date Data Source [id number] 02/18/2020 02:23:00 AM EST ROMAN ([facility]) Name Value Range Interpretation Code Description Data Kaye rce(s) Supporting Document(s) bedside glucose 135 mg/dL 70-105 Above high normal Bedside Gluco se BRYAN ([facility]) ID Date Data Source [id number] 02/18/2020 02:23:00 AM EST ROMAN ([facility]) Name Value Range Interpretation Code Description Data Kaye rce(s) Supporting Document(s) bedside glucose 135 mg/dL 70-105 Above high normal Bedside Gluco se ROMAN ([facility]) ID Date Data Source [id number] 02/18/2020 02:23:00 AM EST ROMAN ([facility]) Name Value Range Interpretation Code Description Data Kaye rce(s) Supporting Document(s) bedside glucose 135 mg/dL 70-105 Above high normal Bedside Gluco se BRYAN ([facility]) ID Date Data Source [id number] 02/18[facility]2020 [facility] Name Value Range Interpretation Code Description Data Kaye rce(s) Supporting Document(s) bedside glucose 135 mg/dL 70-105 Above high normal Bedside Gluco se BRYAN ([facility]) ID Date Data Source [id number] 02/18/2020 02:23:00 AM EST ROMAN ([facility]) Name Value Range Interpretation Code Description Data Kaye rce(s) Supporting Document(s) bedside glucose 135 mg/dL 70-105 Above high normal Bedside Gluco se ROMAN ([facility]) ID Date Data Source [id number] 02/18/2020 02:23:00 AM EST ROMAN ([facility]) Name Value Range Interpretation Code Description Data Kaye rce(s) Supporting Document(s) bedside glucose 135 mg/dL 70-105 Above high normal [facility] ID Date Data Source [id number] 02/18/2020 02:23:00 AM [facility] Name Value Range Interpretation Code Description Data Kaye rce(s) Supporting Document(s) bedside glucose 135 mg/dL 70-105 Above high normal Bedside Gluco se BRYAN ([facility]) ID Date Data Source [id number] 02/18/2020 01:09:00 AM EST ROMAN ([facility]) Name Value Range Interpretation Code Description Data Kaye rce(s) Supporting Document(s) bedside glucose 139 mg/dL 70-105 Above high normal Bedside Gluco se ROMAN ([facility]) ID Date Data Source [id number] 02/18/2020 01:09:00 [facility] Name Value Range Interpretation Code Description Data Kaye rce(s) Supporting Document(s) bedside glucose 139 mg/dL 70-105 Above high normal Bedside Gluco se [facility]) ID Date Data Source [id number] 02/18/2020 01:09:00 AM EST [facility]) Name Value Range Interpretation Code Description Data Kaye rce(s) Supporting Document(s) bedside glucose 139 mg/dL 70-105 Above high normal Bedside Gluco se BRYAN ([facility]) ID Date Data Source [id number] 02/18/2020 01:09:00 AM [facility] Name Value Range Interpretation Code Description Data Kaye rce(s) Supporting Document(s) bedside glucose 139 mg/dL 70-105 Above high normal [facility] ID Date Data Source [id number] 02/18/2020 01:09:00 AM [facility] Name Value Range Interpretation Code Description Data Kaye rce(s) Supporting Document(s) bedside glucose 139 mg/dL 70-105 Above high normal Bedside Gluco se [facility]) ID Date Data Source [id number] 02/18/2020 01:09:00 AM EST ROMAN ([facility]) Name Value Range Interpretation Code Description Data Kaye rce(s) Supporting Document(s) bedside glucose 139 mg/dL 70-105 Above high normal Bedside Gluco se ROMAN ([facility]) ID Date Data Source [id number] 02/18/2020 01:09:00 AM EST ROMAN ([facility]) Name Value Range Interpretation Code Description Data Kaye rce(s) Supporting Document(s) bedside glucose 139 mg/dL 70-105 Above high normal Bedside Gluco se ROMAN ([facility]) ID Date Data Source [id number] 02/18/2020 12:08:00 AM EST ROMAN [facility]) Name Value Range Interpretation Code Description Data Kaye rce(s) Supporting Document(s) bedside glucose 162 mg/dL 70-105 Above high normal Bedside Gluco se ROMAN ([facility]) ID Date Data Source [id number] 02/18/2020 12:08:00 AM [facility] Name Value Range Interpretation Code Description Data Kaye rce(s) Supporting Document(s) bedside glucose 162 mg/dL 70-105 Above high normal Bedside Gluco se ROMAN ([facility]) ID Date Data Source [id number] 02/18/2020 12:08:00 AM EST ROMAN ([facility]) Name Value Range Interpretation Code Description Data Kaye rce(s) Supporting Document(s) bedside glucose 162 mg/dL 70-105 Above high normal [facility] ID Date Data Source [id number] 02/18/2020 12:08:00 AM [facility] Name Value Range Interpretation Code Description Data Kaye rce(s) Supporting Document(s) bedside glucose 162 mg/dL 70-105 Above high normal Bedside Gluco se ROMAN ([facility]) ID Date Data Source [id number] 02/18/2020 12:08:00 AM EST ROMAN ([facility]) Name Value Range Interpretation Code Description Data Kaye rce(s) Supporting Document(s) bedside glucose 162 mg/dL 70-105 Above high normal Bedside Gluco se ROMAN ([facility]) ID Date Data Source [id number] 02/18/2020 12:08:00 AM EST ROMAN ([facility]) Name Value Range Interpretation Code Description Data Kaye rce(s) Supporting Document(s) bedside glucose 162 mg/dL 70-105 Above high normal Bedside Gluco se ROMAN ([facility]) ID Date Data Source [id number] 02/18/2020 12:08:00 AM EST ROMAN ([facility]) Name Value Range Interpretation Code Description Data Kaye rce(s) Supporting Document(s) bedside glucose 162 mg/dL 70-105 Above high normal Bedside Gluco se ROMAN ([facility]) ID Date Data Source [id number] 02/17/2020 11:37:00 PM EST ROMAN ([facility]) Name Value Range Interpretation Code Description Data Kaye rce(s) Supporting Document(s) bedside glucose 103 mg/dL 70-105 Bedside Glucose ATHE NA ([facility]) ID Date Data Source [id number] 02/17/2020 11:37:00 PM EST ROMAN ([facility]) Name Value Range Interpretation Code Description Data Kaye rce(s) Supporting Document(s) bedside glucose 103 mg/dL 70-105 Bedside Glucose ATHE NA ([facility]) ID Date Data Source [id number] 02/17/2020 11:37:00 PM EST ROMAN ([facility]) Name Value Range Interpretation Code Description Data Kaye rce(s) Supporting Document(s) bedside glucose 103 mg/dL 70-105 Bedside Glucose ATHVanessa ORDOÑEZ ([facility]) ID Date Data Source [id number] 02/17/2020 11:37:00 PM EST ROMAN ([facility]) Name Value Range Interpretation Code Description Data Kaye rce(s) Supporting Document(s) bedside glucose 103 mg/dL 70-105 Bedside Glucose ATHE TIAGO ([facility]) ID Date Data Source [id number] 02/17/2020 11:37:00 PM EST ROMAN ([facility]) Name Value Range Interpretation Code Description Data Kaye rce(s) Supporting Document(s) bedside glucose 103 mg/dL 70-105 Bedside Glucose ATHE TIAGO ([facility]) ID Date Data Source [id number] 02/17/2020 11:37:00 PM EST ROMAN ([facility]) Name Value Range Interpretation Code Description Data Kaye rce(s) Supporting Document(s) bedside glucose 103 mg/dL 70-105 Bedside Glucose ATHE [place]O ([facility]) ID Date Data Source [id number] 02/17/2020 11:37:00 PM EST ROMAN ([facility]) Name Value Range Interpretation Code Description Data Kaye rce(s) Supporting Document(s) bedside glucose 103 mg/dL 70-105 Bedside Glucose ATHE TI[place]O ([facility]) ID Date Data Source [id number] 02/17/2020 10:58:00 PM EST ROMAN ([facility]) Name Value Range Interpretation Code Description Data Kaye rce(s) Supporting Document(s) bedside glucose 79 mg/dL 70-105 Bedside Glucose ATHE [place]O ([facility]) ID Date Data Source [id number] 02/17/2020 10:58:00 PM EST ROMAN ([facility]) Name Value Range Interpretation Code Description Data Kaye rce(s) Supporting Document(s) bedside glucose 79 mg/dL 70-105 Bedside Glucose ATHE [place]O ([facility]) ID Date Data Source [id number] 02/17/2020 10:58:00 PM EST ROMAN ([facility]) Name Value Range Interpretation Code Description Data Kaye rce(s) Supporting Document(s) bedside glucose 79 mg/dL 70-105 Bedside Glucose ATHE [place]O ([facility]) ID Date Data Source [id number] 02/17/2020 10:58:00 PM EST ROMAN ([facility]) Name Value Range Interpretation Code Description Data Kaye rce(s) Supporting Document(s) bedside glucose 79 mg/dL 70-105 Bedside Glucose ATHE [place]O ([facility]) ID Date Data Source [id number] 02/17/2020 10:58:00 PM EST ROMAN ([facility]) Name Value Range Interpretation Code Description Data Kaye rce(s) Supporting Document(s) bedside glucose 79 mg/dL 70-105 Bedside Glucose ATHE [place] ([facility]) ID Date Data Source [id number] 02/17/2020 10:58:00 PM EST ROMAN ([facility]) Name Value Range Interpretation Code Description Data Kaye rce(s) Supporting Document(s) bedside glucose 79 mg/dL 70-105 Bedside Glucose ATHE NA ([facility]) ID Date Data Source [id number] 02/17/2020 10:58:00 PM EST ROMAN ([facility]) Name Value Range Interpretation Code Description Data Kaye rce(s) Supporting Document(s) bedside glucose 79 mg/dL 70-105 Bedside Glucose ATHE NA ([facility]) ID Date Data Source [id number] 02/17/2020 10:40:00 PM EST ROMAN ([facility]) Name Value Range Interpretation Code Description Data Kaye rce(s) Supporting Document(s) bedside glucose 77 mg/dL 70-105 Bedside Glucose ATHVanessa ORDOÑEZ ([facility]) ID Date Data Source [id number] 02/17/2020 10:40:00 PM EST ROMAN ([facility]) Name Value Range Interpretation Code Description Data Kaye rce(s) Supporting Document(s) bedside glucose 77 mg/dL 70-105 Bedside Glucose ATHVanessa ORDOÑEZ ([facility]) ID Date Data Source [id number] 02/17/2020 10:40:00 PM EST ROMAN ([facility]) Name Value Range Interpretation Code Description Data Kaye rce(s) Supporting Document(s) bedside glucose 77 mg/dL 70-105 Bedside Glucose ATHE TIAGO ([facility]) ID Date Data Source [id number] 02/17/2020 10:40:00 [facility] Name Value Range Interpretation Code Description Data Kaye rce(s) Supporting Document(s) bedside glucose 77 mg/dL 70-105 Bedside Glucose ATHE TIAGO ([facility]) ID Date Data Source [id number] 02/17/2020 10:40:00 PM EST ROMAN ([facility]) Name Value Range Interpretation Code Description Data Kaye rce(s) Supporting Document(s) bedside glucose 77 mg/dL 70-105 Bedside Glucose ATHE [place]AGO ([facility]) ID Date Data Source [id number] 02/17/2020 10:40:00 PM EST ROMAN ([facility]) Name Value Range Interpretation Code Description Data Kaye rce(s) Supporting Document(s) bedside glucose 77 mg/dL 70-105 Bedside Glucose ATHE [place]O ([facility]) ID Date Data Source [id number] 02/17/2020 10:40:00 PM EST ROMAN ([facility]) Name Value Range Interpretation Code Description Data Kaye rce(s) Supporting Document(s) bedside glucose 77 mg/dL 70-105 Bedside Glucose ATHVanessa ORDOÑEZ ([facility]) ID Date Data Source [id number] 02/17/2020 09:17:00 PM EST ROMAN ([facility]) Name Value Range Interpretation Code Description Data Kaye rce(s) Supporting Document(s) bedside glucose 191 mg/dL 70-105 Above high normal Bedside Gluco se ROMAN ([facility]) ID Date Data Source [id number] 02/17/2020 09:17:00 PM EST ROMAN ([facility]) Name Value Range Interpretation Code Description Data Kaye rce(s) Supporting Document(s) bedside glucose 191 mg/dL 70-105 Above high normal Bedside Gluco se ROMAN ([facility]) ID Date Data Source [id number] 02/17/2020 09:17:00 PM EST ROMAN ([facility]) Name Value Range Interpretation Code Description Data Kaye rce(s) Supporting Document(s) bedside glucose 191 mg/dL 70-105 Above high normal Bedside Gluco se ROMAN ([facility]) ID Date Data Source [id number] 02/17/2020 09:17:00 PM EST ROMAN ([facility]) Name Value Range Interpretation Code Description Data Kaye rce(s) Supporting Document(s) bedside glucose 191 mg/dL 70-105 Above high normal Bedside Gluco se ROMAN ([facility]) ID Date Data Source [id number] 02/17/2020 09:17:00 PM EST ROMAN ([facility]) Name Value Range Interpretation Code Description Data Kaye rce(s) Supporting Document(s) bedside glucose 191 mg/dL 70-105 Above high normal Bedside Gluco se ROMAN ([facility]) ID Date Data Source [id number] 02/17/2020 09:17:00 PM EST ROMAN ([facility]) Name Value Range Interpretation Code Description Data Kaye rce(s) Supporting Document(s) bedside glucose 191 mg/dL 70-105 Above high normal Bedside Gluco se ROMAN ([facility]) ID Date Data Source [id number] 02/17/2020 09:17:00 PM EST ROMAN ([facility]) Name Value Range Interpretation Code Description Data Kaye rce(s) Supporting Document(s) bedside glucose 191 mg/dL 70-105 Above high normal Bedside Gluco se ROMAN ([facility]) ID Date Data Source [id number] 02/17/2020 08:19:00 PM EST ROMAN ([facility]) Name Value Range Interpretation Code Description Data Kaye rce(s) Supporting Document(s) phosphorus level 4.3 mg/dL 2.5-4.9 Phosphorus Level AT [facility] ([facility]) ID Date Data Source [id number] 02/17/2020 08:19:00 PM EST ROMAN ([facility]) Name Value Range Interpretation Code Description Data Kaye rce(s) Supporting Document(s) creatinine for GFR 1.81 mg/dL 0.55-1.30 Above high normal Creatinine for GFR ROMAN ([facility]) glucose, fasting 314 mg/dL 70-100 Above high normal Glucose, Fas ting ROMAN ([facility]) blood urea nitrogen 48 mg/dL 7-18 Above high normal Blood Ure a Nitrogen [facility] [facility]) potassium serum 3.5 mEq/L 3.5-5.1 Potassium Serum ATHE NA ([facility]) chloride level 98 mEq/L 98-107 Chloride Level ROMAN ([facility]) sodium level 134 mEq/L 136-145 Below low normal Sodium Level ATHE NA ([facility]) glomerular filtration rate >58 Below low normal Beata merular Filtration Rate ROMAN ([facility]) carbon dioxide level 19 mEq/L 21-32 Below low normal Carbon Di oxide Level ROMAN ([facility]) calcium level 8.9 mg/dL 8.5-10.1 Calcium Level ROMAN ( [facility]) anion gap 17 mEq/L 8-16 Above high normal Anion Gap ROMAN ([facility]) ID Date Data Source [id number] 02/17/2020 08:19:00 PM EST BRYAN ([facility]) Name Value Range Interpretation Code Description Data Kaye rce(s) Supporting Document(s) phosphorus level 4.3 mg/dL 2.5-4.9 Phosphorus Level AT [facility]) ID Date Data Source [id number] 02/17/2020 08:19:00 PM EST BRYAN ([facility]) Name Value Range Interpretation Code Description Data Kaye rce(s) Supporting Document(s) glucose, fasting 314 mg/dL 70-100 Above high normal Glucose, Fas ting ROMAN ([facility]) blood urea nitrogen 48 mg/dL 7-18 Above high normal Blood Ure a Nitrogen ROMAN ([facility]) creatinine for GFR 1.81 mg/dL 0.55-1.30 Above high normal Creatinine for GFR ROMAN ([facility]) glomerular filtration rate >58 Below low normal Beata merular Filtration Rate ROMAN ([facility]) sodium level 134 mEq/L 136-145 Below low normal Sodium Level ATHE NA ([facility]) potassium serum 3.5 mEq/L 3.5-5.1 Potassium Serum ATHE NA ([facility]) calcium level 8.9 mg/dL 8.5-10.1 Calcium Level ROMAN ( [facility]) chloride level 98 mEq/L 98-107 Chloride Level ROMAN ([facility]) carbon dioxide level 19 mEq/L 21-32 Below low normal Carbon Di oxide Level ROMAN ([facility]) anion gap 17 mEq/L 8-16 Above high normal Anion Gap BRYAN ([facility]) ID Date Data Source [id number] 02/17/2020 08:19:00 PM EST ROMAN ([facility]) Name Value Range Interpretation Code Description Data Kaye rce(s) Supporting Document(s) phosphorus level 4.3 mg/dL 2.5-4.9 Phosphorus Level AT [facility] ([facility]) ID Date Data Source [id number] 02/17/2020 08:19:00 PM EST ROMAN ([facility]) Name Value Range Interpretation Code Description Data Kaye rce(s) Supporting Document(s) blood urea nitrogen 48 mg/dL 7-18 Above high normal Blood Ure a Nitrogen ROMAN ([facility]) glucose, fasting 314 mg/dL 70-100 Above high normal Glucose, Fas ting ROMAN ([facility]) creatinine for GFR 1.81 mg/dL 0.55-1.30 Above high normal Creatinine for GFR ROMAN ([facility]) sodium level 134 mEq/L 136-145 Below low normal Sodium Level ATHE NA ([facility]) glomerular filtration rate >58 Below low normal Beata merular Filtration Rate ROMAN ([facility]) chloride level 98 mEq/L 98-107 Chloride Level ROMAN ([facility]) potassium serum 3.5 mEq/L 3.5-5.1 Potassium Serum ATHE NA ([facility]) carbon dioxide level 19 mEq/L 21-32 Below low normal Carbon Di oxide Level ROMAN ([facility]) calcium level 8.9 mg/dL 8.5-10.1 Calcium Level ROMAN ( [facility]) anion gap 17 mEq/L 8-16 Above high normal Anion Gap ROMAN ([facility]) ID Date Data Source [id number] 02/17/2020 08:19:00 PM EST ROMAN ([facility]) Name Value Range Interpretation Code Description Data Kaye rce(s) Supporting Document(s) phosphorus level 4.3 mg/dL 2.5-4.9 Phosphorus Level AT [facility] ([facility]) ID Date Data Source [id number] 02/17/2020 08:19:00 PM EST ROMAN ([facility]) Name Value Range Interpretation Code Description Data Kaye rce(s) Supporting Document(s) glucose, fasting 314 mg/dL 70-100 Above high normal Glucose, Fas ting ROMAN ([facility]) creatinine for GFR 1.81 mg/dL 0.55-1.30 Above high normal Creatinine for GFR ROMAN ([facility]) sodium level 134 mEq/L 136-145 Below low normal Sodium Level ATHE NA ([facility]) glomerular filtration rate >58 Below low normal Beata merular Filtration Rate ROMAN ([facility]) blood urea nitrogen 48 mg/dL 7-18 Above high normal Blood Ure a Nitrogen ROMAN ([facility]) carbon dioxide level 19 mEq/L 21-32 Below low normal Carbon Di oxide Level ROMAN ([facility]) potassium serum 3.5 mEq/L 3.5-5.1 Potassium Serum ATHE NA ([facility]) chloride level 98 mEq/L 98-107 Chloride Level BRYAN ([facility]) calcium level 8.9 mg/dL 8.5-10.1 Calcium Level ROMAN ( [facility]) anion gap 17 mEq/L 8-16 Above high normal Anion Gap BRYAN ([facility]) ID Date Data Source [id number] 02/17/2020 08:19:00 PM EST ROMAN ([facility]) Name Value Range Interpretation Code Description Data Kaye rce(s) Supporting Document(s) phosphorus level 4.3 mg/dL 2.5-4.9 Phosphorus Level AT [facility] ([facility]) ID Date Data Source [id number] 02/17/2020 08:19:00 PM EST ROMAN ([facility]) Name Value Range Interpretation Code Description Data Kaye rce(s) Supporting Document(s) glucose, fasting 314 mg/dL 70-100 Above high normal Glucose, Fas ting BRYAN ([facility]) blood urea nitrogen 48 mg/dL 7-18 Above high normal Blood Ure a Nitrogen ROMAN ([facility]) creatinine for GFR 1.81 mg/dL 0.55-1.30 Above high normal Creatinine for GFR ROMAN ([facility]) glomerular filtration rate >58 Below low normal Beata merular Filtration Rate ROMAN ([facility]) sodium level 134 mEq/L 136-145 Below low normal Sodium Level ATHE NA ([facility]) potassium serum 3.5 mEq/L 3.5-5.1 Potassium Serum ATHE NA ([facility]) carbon dioxide level 19 mEq/L 21-32 Below low normal Carbon Di oxide Level ROMAN ([facility]) chloride level 98 mEq/L 98-107 Chloride Level ROMAN ([facility]) anion gap 17 mEq/L 8-16 Above high normal Anion Gap ROMAN ([facility]) calcium level 8.9 mg/dL 8.5-10.1 Calcium Level BRYAN ( [facility]) ID Date Data Source [id number] 02/17/2020 08:19:00 PM EST ROMAN ([facility]) Name Value Range Interpretation Code Description Data Kaye rce(s) Supporting Document(s) phosphorus level 4.3 mg/dL 2.5-4.9 Phosphorus Level AT TRAM ([facility]) ID Date Data Source [id number] 02/17/2020 08:19:00 PM EST ROMAN ([facility]) Name Value Range Interpretation Code Description Data Kaye rce(s) Supporting Document(s) glucose, fasting 314 mg/dL 70-100 Above high normal Glucose, Fas ting BRYAN ([facility]) blood urea nitrogen 48 mg/dL 7-18 Above high normal Blood Ure a Nitrogen ROMAN ([facility]) creatinine for GFR 1.81 mg/dL 0.55-1.30 Above high normal Creatinine for GFR ROMAN ([facility]) glomerular filtration rate >58 Below low normal Beata merular Filtration Rate ROMAN ([facility]) sodium level 134 mEq/L 136-145 Below low normal Sodium Level ATHE NA ([facility]) carbon dioxide level 19 mEq/L 21-32 Below low normal Carbon Di oxide Level ROMAN ([facility]) potassium serum 3.5 mEq/L 3.5-5.1 Potassium Serum ATHE NA ([facility]) chloride level 98 mEq/L 98-107 Chloride Level ROMAN ([facility]) anion gap 17 mEq/L 8-16 Above high normal Anion Gap ROMAN ([facility]) calcium level 8.9 mg/dL 8.5-10.1 Calcium Level ROMAN ( [facility]) ID Date Data Source [id number] 02/17/2020 08:19:00 PM EST ROMAN ([facility]) Name Value Range Interpretation Code Description Data Kaye rce(s) Supporting Document(s) phosphorus level 4.3 mg/dL 2.5-4.9 Phosphorus Level AT [facility] ([facility]) ID Date Data Source [id number] 02/17/2020 08:19:00 PM EST ROMAN ([facility]) Name Value Range Interpretation Code Description Data Kaye rce(s) Supporting Document(s) blood urea nitrogen 48 mg/dL 7-18 Above high normal Blood Ure a Nitrogen ROMAN ([facility]) glomerular filtration rate >58 Below low normal Beata merular Filtration Rate ROMAN ([facility]) glucose, fasting 314 mg/dL 70-100 Above high normal Glucose, Fas ting ROMAN ([facility]) creatinine for GFR 1.81 mg/dL 0.55-1.30 Above high normal Creatinine for GFR ROMAN ([facility]) sodium level 134 mEq/L 136-145 Below low normal Sodium Level ATHE NA ([facility]) potassium serum 3.5 mEq/L 3.5-5.1 Potassium Serum ATHE NA ([facility]) carbon dioxide level 19 mEq/L 21-32 Below low normal Carbon Di oxide Level ROMAN ([facility]) chloride level 98 mEq/L 98-107 Chloride Level ROMAN ([facility]) anion gap 17 mEq/L 8-16 Above high normal Anion Gap ROMAN ([facility]) calcium level 8.9 mg/dL 8.5-10.1 Calcium Level ROMAN ( [facility]) ID Date Data Source [id number] 02/17/2020 07:12:00 PM EST ROMAN ([facility]) Name Value Range Interpretation Code Description Data Kaye rce(s) Supporting Document(s) bedside glucose 327 mg/dL 70-105 Above high normal Bedside Gluco se ROMAN ([facility]) ID Date Data Source [id number] 02/17/2020 07:12:00 PM EST ROMAN ([facility]) Name Value Range Interpretation Code Description Data Kaye rce(s) Supporting Document(s) bedside glucose 327 mg/dL 70-105 Above high normal Bedside Gluco se BRYAN ([facility]) ID Date Data Source [id number] 02/17/2020 07:12:00 PM EST ROMAN ([facility]) Name Value Range Interpretation Code Description Data Kaye rce(s) Supporting Document(s) bedside glucose 327 mg/dL 70-105 Above high normal Bedside Gluco se ROMAN ([facility]) ID Date Data Source [id number] 02/17/2020 07:12:00 PM EST ROMAN ([facility]) Name Value Range Interpretation Code Description Data Kaye rce(s) Supporting Document(s) bedside glucose 327 mg/dL 70-105 Above high normal Bedside Gluco se ROMAN ([facility]) ID Date Data Source [id number] 02/17/2020 07:12:00 PM EST ROMAN ([facility]) Name Value Range Interpretation Code Description Data Kaye rce(s) Supporting Document(s) bedside glucose 327 mg/dL 70-105 Above high normal Bedside Gluco se ROMAN ([facility]) ID Date Data Source [id number] 02/17/2020 07:12:00 PM EST ROMAN ([facility]) Name Value Range Interpretation Code Description Data Kaye rce(s) Supporting Document(s) bedside glucose 327 mg/dL 70-105 Above high normal Bedside Gluco se ROMAN ([facility]) ID Date Data Source [id number] 02/17/2020 07:12:00 PM EST ROMAN ([facility]) Name Value Range Interpretation Code Description Data Kaye rce(s) Supporting Document(s) bedside glucose 327 mg/dL 70-105 Above high normal Bedside Gluco se ROMAN ([facility]) ID Date Data Source [id number] 02/17/2020 06:57:00 PM EST ROMAN ([facility]) Name Value Range Interpretation Code Description Data Kaye rce(s) Supporting Document(s) phosphorus level 4.4 mg/dL 2.5-4.9 Phosphorus Level AT [facility] ([facility]) ID Date Data Source [id number] 02/17/2020 06:57:00 PM EST ROMAN ([facility]) Name Value Range Interpretation Code Description Data Kaye rce(s) Supporting Document(s) glucose, fasting 329 mg/dL 70-100 Above high normal Glucose, Fas ting ROMAN ([facility]) sodium level 132 mEq/L 136-145 Below low normal Sodium Level ATHE NA ([facility]) blood urea nitrogen 50 mg/dL 7-18 Above high normal Blood Ure a Nitrogen ROMAN ([facility]) creatinine for GFR 1.77 mg/dL 0.55-1.30 Above high normal Creatinine for GFR ROMAN ([facility]) glomerular filtration rate >58 Below low normal Beata merular Filtration Rate ROMAN ([facility]) carbon dioxide level 18 mEq/L 21-32 Below low normal Carbon Di oxide Level ROMAN ([facility]) anion gap 18 mEq/L 8-16 Above high normal Anion Gap ROMAN ([facility]) chloride level 96 mEq/L 98-107 Below low normal Chloride Level ROMAN ([facility]) potassium serum 3.9 mEq/L 3.5-5.1 Potassium Serum ATHE NA ([facility]) calcium level 8.9 mg/dL 8.5-10.1 Calcium Level BRYAN ( [facility]) ID Date Data Source [id number] 02/17/2020 06:57:00 PM EST BRYAN ([facility]) Name Value Range Interpretation Code Description Data Kaye rce(s) Supporting Document(s) phosphorus level 4.4 mg/dL 2.5-4.9 Phosphorus Level AT [facility]) ID Date Data Source [id number] 02/17/2020 06:57:00 PM EST BRYAN ([facility]) Name Value Range Interpretation Code Description Data Kaye rce(s) Supporting Document(s) glucose, fasting 329 mg/dL 70-100 Above high normal Glucose, Fas ting ROMAN ([facility]) blood urea nitrogen 50 mg/dL 7-18 Above high normal Blood Ure a Nitrogen ROMAN ([facility]) creatinine for GFR 1.77 mg/dL 0.55-1.30 Above high normal Creatinine for GFR ROMAN ([facility]) glomerular filtration rate >58 Below low normal Beata merular Filtration Rate ROMAN ([facility]) potassium serum 3.9 mEq/L 3.5-5.1 Potassium Serum ATHE NA ([facility]) sodium level 132 mEq/L 136-145 Below low normal Sodium Level ATHE NA ([facility]) chloride level 96 mEq/L 98-107 Below low normal Chloride Level ROMAN ([facility]) carbon dioxide level 18 mEq/L 21-32 Below low normal Carbon Di oxide Level ROMAN ([facility]) anion gap 18 mEq/L 8-16 Above high normal Anion Gap ROMAN ([facility]) calcium level 8.9 mg/dL 8.5-10.1 Calcium Level ROMAN ( [facility]) ID Date Data Source [id number] 02/17/2020 06:57:00 PM EST ROMAN ([facility]) Name Value Range Interpretation Code Description Data Kaye rce(s) Supporting Document(s) phosphorus level 4.4 mg/dL 2.5-4.9 Phosphorus Level AT [facility] ([facility]) ID Date Data Source [id number] 02/17/2020 06:57:00 PM EST ROMAN ([facility]) Name Value Range Interpretation Code Description Data Kaye rce(s) Supporting Document(s) glucose, fasting 329 mg/dL 70-100 Above high normal Glucose, Fas ting ROMAN ([facility]) creatinine for GFR 1.77 mg/dL 0.55-1.30 Above high normal Creatinine for GFR ROMAN ([facility]) blood urea nitrogen 50 mg/dL 7-18 Above high normal Blood Ure a Nitrogen ROMAN ([facility]) glomerular filtration rate >58 Below low normal Beata merular Filtration Rate ROMAN ([facility]) potassium serum 3.9 mEq/L 3.5-5.1 Potassium Serum ATHE NA ([facility]) sodium level 132 mEq/L 136-145 Below low normal Sodium Level ATHE NA ([facility]) chloride level 96 mEq/L 98-107 Below low normal Chloride Level ROMAN ([facility]) anion gap 18 mEq/L 8-16 Above high normal Anion Gap ROMAN ([facility]) calcium level 8.9 mg/dL 8.5-10.1 Calcium Level ROMAN ( [facility]) carbon dioxide level 18 mEq/L 21-32 Below low normal Carbon Di oxide Level BRYAN ([facility]) ID Date Data Source [id number] 02/17/2020 06:57:00 PM EST ROMAN ([facility]) Name Value Range Interpretation Code Description Data Kaye rce(s) Supporting Document(s) phosphorus level 4.4 mg/dL 2.5-4.9 Phosphorus Level AT [facility] ([facility]) ID Date Data Source [id number] 02/17/2020 06:57:00 PM EST ROMAN ([facility]) Name Value Range Interpretation Code Description Data Kaye rce(s) Supporting Document(s) glucose, fasting 329 mg/dL 70-100 Above high normal Glucose, Fas ting ROMAN ([facility]) blood urea nitrogen 50 mg/dL 7-18 Above high normal Blood Ure a Nitrogen BRYAN ([facility]) creatinine for GFR 1.77 mg/dL 0.55-1.30 Above high normal Creatinine for GFR BRYAN ([facility]) potassium serum 3.9 mEq/L 3.5-5.1 Potassium Serum ATHE NA ([facility]) glomerular filtration rate >58 Below low normal Beata merular Filtration Rate ROMAN ([facility]) sodium level 132 mEq/L 136-145 Below low normal Sodium Level ATHE NA ([facility]) carbon dioxide level 18 mEq/L 21-32 Below low normal Carbon Di oxide Level ROMAN ([facility]) chloride level 96 mEq/L 98-107 Below low normal Chloride Level ROMAN ([facility]) anion gap 18 mEq/L 8-16 Above high normal Anion Gap ROMAN ([facility]) calcium level 8.9 mg/dL 8.5-10.1 Calcium Level BRYAN ( [facility]) ID Date Data Source [id number] 02/17/2020 06:57:00 PM EST ROMAN ([facility]) Name Value Range Interpretation Code Description Data Kaye rce(s) Supporting Document(s) phosphorus level 4.4 mg/dL 2.5-4.9 Phosphorus Level AT [facility] ([facility]) ID Date Data Source [id number] 02/17/2020 06:57:00 PM EST ROMAN ([facility]) Name Value Range Interpretation Code Description Data Kaye rce(s) Supporting Document(s) blood urea nitrogen 50 mg/dL 7-18 Above high normal Blood Ure a Nitrogen ROMAN ([facility]) creatinine for GFR 1.77 mg/dL 0.55-1.30 Above high normal Creatinine for GFR ROMAN ([facility]) glucose, fasting 329 mg/dL 70-100 Above high normal Glucose, Fas ting ROMAN ([facility]) potassium serum 3.9 mEq/L 3.5-5.1 Potassium Serum ATHE NA ([facility]) sodium level 132 mEq/L 136-145 Below low normal Sodium Level ATHE NA ([facility]) glomerular filtration rate >58 Below low normal Beata merular Filtration Rate ROMAN ([facility]) anion gap 18 mEq/L 8-16 Above high normal Anion Gap ROMAN ([facility]) chloride level 96 mEq/L 98-107 Below low normal Chloride Level ROMAN ([facility]) carbon dioxide level 18 mEq/L 21-32 Below low normal Carbon Di oxide Level ROMAN ([facility]) calcium level 8.9 mg/dL 8.5-10.1 Calcium Level BRYAN ( [facility]) ID Date Data Source [id number] 02/17/2020 06:57:00 PM EST ROMAN ([facility]) Name Value Range Interpretation Code Description Data Kaye rce(s) Supporting Document(s) phosphorus level 4.4 mg/dL 2.5-4.9 Phosphorus Level AT [facility] ([facility]) ID Date Data Source [id number] 02/17/2020 06:57:00 PM EST ROMAN ([facility]) Name Value Range Interpretation Code Description Data Kaye rce(s) Supporting Document(s) blood urea nitrogen 50 mg/dL 7-18 Above high normal Blood Ure a Nitrogen ROMAN ([facility]) creatinine for GFR 1.77 mg/dL 0.55-1.30 Above high normal Creatinine for GFR ROMAN ([facility]) glucose, fasting 329 mg/dL 70-100 Above high normal Glucose, Fas ting ROMAN ([facility]) chloride level 96 mEq/L 98-107 Below low normal Chloride Level ROMAN ([facility]) potassium serum 3.9 mEq/L 3.5-5.1 Potassium Serum ATHE NA ([facility]) sodium level 132 mEq/L 136-145 Below low normal Sodium Level ATHE NA ([facility]) glomerular filtration rate >58 Below low normal Beata merular Filtration Rate [place] ([facility]) anion gap 18 mEq/L 8-16 Above high normal Anion Gap ROMAN ([facility]) carbon dioxide level 18 mEq/L 21-32 Below low normal Carbon Di oxide Level ROMAN ([facility]) calcium level 8.9 mg/dL 8.5-10.1 Calcium Level BRYAN ( [facility]) ID Date Data Source [id number] 02/17/2020 06:57:00 PM EST BRYAN ([facility]) Name Value Range Interpretation Code Description Data Kaye rce(s) Supporting Document(s) phosphorus level 4.4 mg/dL 2.5-4.9 Phosphorus Level AT [facility]) ID Date Data Source [id number] 02/17/2020 06:57:00 PM EST BRYAN ([facility]) Name Value Range Interpretation Code Description Data Kaye rce(s) Supporting Document(s) blood urea nitrogen 50 mg/dL 7-18 Above high normal Blood Ure a Nitrogen ROMAN ([facility]) creatinine for GFR 1.77 mg/dL 0.55-1.30 Above high normal Creatinine for GFR ROMAN ([facility]) glomerular filtration rate >58 Below low normal Beata merular Filtration Rate ROMAN ([facility]) glucose, fasting 329 mg/dL 70-100 Above high normal Glucose, Fas ting ROMAN ([facility]) sodium level 132 mEq/L 136-145 Below low normal Sodium Level ATHE NA ([facility]) chloride level 96 mEq/L 98-107 Below low normal Chloride Level ROMAN ([facility]) carbon dioxide level 18 mEq/L 21-32 Below low normal Carbon Di oxide Level ROMAN ([facility]) potassium serum 3.9 mEq/L 3.5-5.1 Potassium Serum ATHE NA ([facility]) anion gap 18 mEq/L 8-16 Above high normal Anion Gap ROMAN ([facility]) calcium level 8.9 mg/dL 8.5-10.1 Calcium Level ROMAN ( [facility]) ID Date Data Source [id number] 02/17/2020 04:21:00 PM EST ROMAN ([facility]) Name Value Range Interpretation Code Description Data Kaye rce(s) Supporting Document(s) osmolality serum 311 mOsm/kg 275-295 Above high normal Osmolality Serum ROMAN ([facility]) ID Date Data Source [id number] 02/17/2020 04:21:00 PM EST ROMAN ([facility]) Name Value Range Interpretation Code Description Data Kaye rce(s) Supporting Document(s) lipase 68 U/L 73-393 Below low normal Lipase BRYAN ( [facility]) ID Date Data Source [id number] 02/17/2020 04:21:00 PM EST BRYAN ([facility]) Name Value Range Interpretation Code Description Data Kaye rce(s) Supporting Document(s) acetone/ketone > 46.00 <2.81 Above high normal Acetone/ketone ROMAN ([facility]) ID Date Data Source [id number] 02/17/2020 04:21:00 PM EST ROMAN ([facility]) Name Value Range Interpretation Code Description Data Kaye rce(s) Supporting Document(s) glucose, fasting 337 mg/dL 70-100 Above high normal Glucose, Fas ting ROMAN ([facility]) creatinine for GFR 1.73 mg/dL 0.55-1.30 Above high normal Creatinine for GFR BRYAN ([facility]) sodium level 132 mEq/L 136-145 Below low normal Sodium Level ATHE NA ([facility]) glomerular filtration rate >58 Below low normal Beata merular Filtration Rate ROMAN ([facility]) blood urea nitrogen 49 mg/dL 7-18 Above high normal Blood Ure a Nitrogen ROMAN ([facility]) carbon dioxide level 17 mEq/L 21-32 Below low normal Carbon Di oxide Level ROMAN ([facility]) chloride level 95 mEq/L 98-107 Below low normal Chloride Level ROMAN ([facility]) anion gap 20 mEq/L 8-16 Above high normal Anion Gap ROMAN ([facility]) potassium serum 4.1 mEq/L 3.5-5.1 Potassium Serum ATHE NA ([facility]) calcium level 9.5 mg/dL 8.5-10.1 Calcium Level ROMAN ( [facility]) ID Date Data Source [id number] 02/17/2020 04:21:00 PM EST ROMAN ([facility]) Name Value Range Interpretation Code Description Data Kaye rce(s) Supporting Document(s) AST/SGOT 22 U/L 7-37 AST/SGOT ROMAN ([facility]) ALT/SGPT 18 U/L 12-78 ALT/SGPT ROMAN ([facility]) alkaline phosphatase 79 U/L 45-117 Alkaline Phosph atase ROMAN ([facility]) bilirubin,direct 0.2 mg/dL 0.0-0.2 Bilirubin,direct AT TRAM ([facility]) total protein 8.2 gm/dL 6.4-8.2 Total Protein ROMAN ( [facility]) bilirubin,total 1.0 mg/dL 0.2-1.0 Bilirubin,total ATHE ([facility]) albumin/globulin ratio 1.2-2.2 Below low normal Albumin /globulin Ratio ROMAN ([facility]) albumin 4.3 gm/dL 3.2-5.2 Albumin ROMAN ([facility]) ID Date Data Source [id number] 02/17/2020 04:21:00 PM EST ROMAN ([facility]) Name Value Range Interpretation Code Description Data Kaye rce(s) Supporting Document(s) osmolality serum 311 mOsm/kg 275-295 Above high normal Osmolality Serum ROMAN ([facility]) ID Date Data Source [id number] 02/17/2020 04:21:00 PM EST ROMAN ([facility]) Name Value Range Interpretation Code Description Data Kaye rce(s) Supporting Document(s) lipase 68 U/L 73-393 Below low normal Lipase BRYAN ( [facility]) ID Date Data Source [id number] 02/17/2020 04:21:00 PM EST ROMAN ([facility]) Name Value Range Interpretation Code Description Data Kaye rce(s) Supporting Document(s) acetone/ketone > 46.00 <2.81 Above high normal Acetone/ketone [facility]) ID Date Data Source [id number] 02/17/2020 04:21:00 PM EST BRYAN ([facility]) Name Value Range Interpretation Code Description Data Kaye rce(s) Supporting Document(s) glucose, fasting 337 mg/dL 70-100 Above high normal Glucose, Fas ting ROMAN ([facility]) creatinine for GFR 1.73 mg/dL 0.55-1.30 Above high normal Creatinine for GFR ROMAN ([facility]) glomerular filtration rate >58 Below low normal Beata merular Filtration Rate ROMAN ([facility]) blood urea nitrogen 49 mg/dL 7-18 Above high normal Blood Ure a Nitrogen ROMAN ([facility]) sodium level 132 mEq/L 136-145 Below low normal Sodium Level ATHE NA ([facility]) chloride level 95 mEq/L 98-107 Below low normal Chloride Level ROMAN ([facility]) potassium serum 4.1 mEq/L 3.5-5.1 Potassium Serum ATHE NA ([facility]) calcium level 9.5 mg/dL 8.5-10.1 Calcium Level BRYAN ( [facility]) anion gap 20 mEq/L 8-16 Above high normal Anion Gap ROMAN ([facility]) carbon dioxide level 17 mEq/L 21-32 Below low normal Carbon Di oxide Level ROMAN ([facility]) ID Date Data Source [id number] 02/17/2020 04:21:00 PM EST ROMAN ([facility]) Name Value Range Interpretation Code Description Data Kaye rce(s) Supporting Document(s) ALT/SGPT 18 U/L 12-78 ALT/SGPT ROMAN ([facility]) AST/SGOT 22 U/L 7-37 AST/SGOT ROMAN ([facility]) alkaline phosphatase 79 U/L 45-117 Alkaline Phosph atase ROMAN ([facility]) bilirubin,total 1.0 mg/dL 0.2-1.0 Bilirubin,total ATHE NA ([facility]) total protein 8.2 gm/dL 6.4-8.2 Total Protein ROMAN ( [facility]) bilirubin,direct 0.2 mg/dL 0.0-0.2 Bilirubin,direct AT TRAM ([facility]) albumin 4.3 gm/dL 3.2-5.2 Albumin ROMAN ([facility]) albumin/globulin ratio 1.2-2.2 Below low normal Albumin /globulin Ratio ROMAN ([facility]) ID Date Data Source [id number] 02/17/2020 04:21:00 PM EST ROMAN ([facility]) Name Value Range Interpretation Code Description Data Kaye rce(s) Supporting Document(s) osmolality serum 311 mOsm/kg 275-295 Above high normal Osmolality Serum ROMAN ([facility]) ID Date Data Source [id number] 02/17/2020 04:21:00 PM EST ROMAN ([facility]) Name Value Range Interpretation Code Description Data Kaye rce(s) Supporting Document(s) lipase 68 U/L 73-393 Below low normal Lipase ROMAN ( [facility]) ID Date Data Source [id number] 02/17/2020 04:21:00 PM EST ROMAN ([facility]) Name Value Range Interpretation Code Description Data Kaye rce(s) Supporting Document(s) acetone/ketone > 46.00 <2.81 Above high normal Acetone/ketone ROMAN ([facility]) ID Date Data Source [id number] 02/17/2020 04:21:00 PM EST ROMAN ([facility]) Name Value Range Interpretation Code Description Data Kaye rce(s) Supporting Document(s) blood urea nitrogen 49 mg/dL 7-18 Above high normal Blood Ure a Nitrogen ROMAN ([facility]) creatinine for GFR 1.73 mg/dL 0.55-1.30 Above high normal Creatinine for GFR BRYAN ([facility]) glucose, fasting 337 mg/dL 70-100 Above high normal Glucose, Fas ting ROMAN ([facility]) sodium level 132 mEq/L 136-145 Below low normal Sodium Level ATHE NA ([facility]) glomerular filtration rate >58 Below low normal Beata merular Filtration Rate ROMAN ([facility]) potassium serum 4.1 mEq/L 3.5-5.1 Potassium Serum ATHE NA ([facility]) carbon dioxide level 17 mEq/L 21-32 Below low normal Carbon Di oxide Level ROMAN ([facility]) chloride level 95 mEq/L 98-107 Below low normal Chloride Level ROMAN ([facility]) anion gap 20 mEq/L 8-16 Above high normal Anion Gap ROMAN ([facility]) calcium level 9.5 mg/dL 8.5-10.1 Calcium Level BRYAN ( [facility]) ID Date Data Source [id number] 02/17/2020 04:21:00 PM EST ROMAN ([facility]) Name Value Range Interpretation Code Description Data Kaye rce(s) Supporting Document(s) AST/SGOT 22 U/L 7-37 AST/SGOT ROMAN ([facility]) ALT/SGPT 18 U/L 12-78 ALT/SGPT ROMAN ([facility]) alkaline phosphatase 79 U/L 45-117 Alkaline Phosph atase ROMAN ([facility]) bilirubin,total 1.0 mg/dL 0.2-1.0 Bilirubin,total ATHE NA ([facility]) bilirubin,direct 0.2 mg/dL 0.0-0.2 Bilirubin,direct AT TRAM ([facility]) total protein 8.2 gm/dL 6.4-8.2 Total Protein ROMAN ( [facility]) albumin 4.3 gm/dL 3.2-5.2 Albumin ROMAN ([facility]) albumin/globulin ratio 1.2-2.2 Below low normal Albumin /globulin Ratio ROMAN ([facility]) ID Date Data Source [id number] 02/17/2020 04:21:00 PM EST ROMAN ([facility]) Name Value Range Interpretation Code Description Data Kaye rce(s) Supporting Document(s) osmolality serum 311 mOsm/kg 275-295 Above high normal Osmolality Serum ROMAN ([facility]) ID Date Data Source [id number] 02/17/2020 04:21:00 PM EST ROMAN ([facility]) Name Value Range Interpretation Code Description Data Kaye rce(s) Supporting Document(s) lipase 68 U/L 73-393 Below low normal Lipase ROMAN ( [facility]) ID Date Data Source [id number] 02/17/2020 04:21:00 PM EST ROMAN ([facility]) Name Value Range Interpretation Code Description Data Kaye rce(s) Supporting Document(s) acetone/ketone > 46.00 <2.81 Above high normal [facility] Date Data Source [id number] 02/17/2020 04:21:00 PM EST ROMAN ([facility]) Name Value Range Interpretation Code Description Data Kaye rce(s) Supporting Document(s) creatinine for GFR 1.73 mg/dL 0.55-1.30 Above high normal Creatinine for GFR ROMAN ([facility]) glucose, fasting 337 mg/dL 70-100 Above high normal Glucose, Fas ting ROMAN ([facility]) blood urea nitrogen 49 mg/dL 7-18 Above high normal Blood Ure a Nitrogen ROMAN ([facility]) sodium level 132 mEq/L 136-145 Below low normal Sodium Level ATHE ([facility]) glomerular filtration rate >58 Below low normal Beata merular Filtration Rate ROMAN ([facility]) potassium serum 4.1 mEq/L 3.5-5.1 Potassium Serum ATHE ([facility]) carbon dioxide level 17 mEq/L 21-32 Below low normal Carbon Di oxide Level ROMAN ([facility]) anion gap 20 mEq/L 8-16 Above high normal Anion Gap ROMAN ([facility]) chloride level 95 mEq/L 98-107 Below low normal Chloride Level ROMAN ([facility]) calcium level 9.5 mg/dL 8.5-10.1 Calcium Level BRYAN ( [facility]) ID Date Data Source [id number] 02/17/2020 04:21:00 PM EST ROMAN ([facility]) Name Value Range Interpretation Code Description Data Kaye rce(s) Supporting Document(s) AST/SGOT 22 U/L 7-37 AST/SGOT ROMAN ([facility]) alkaline phosphatase 79 U/L 45-117 Alkaline Phosph atase ROMAN ([facility]) ALT/SGPT 18 U/L 12-78 ALT/SGPT ROMAN ([facility]) total protein 8.2 gm/dL 6.4-8.2 Total Protein ROMAN ( [facility]) bilirubin,total 1.0 mg/dL 0.2-1.0 Bilirubin,total ATHE ([facility]) bilirubin,direct 0.2 mg/dL 0.0-0.2 Bilirubin,direct AT TRAM [facility]) albumin 4.3 gm/dL 3.2-5.2 Albumin ROMAN ([facility]) albumin/globulin ratio 1.2-2.2 Below low normal Albumin /globulin Ratio ROMAN ([facility]) ID Date Data Source [id number] 02/17/2020 04:21:00 PM EST ROMAN ([facility]) Name Value Range Interpretation Code Description Data Kaye rce(s) Supporting Document(s) osmolality serum 311 mOsm/kg 275-295 Above high normal Osmolality Serum ROMAN ([facility]) ID Date Data Source [id number] 02/17/2020 04:21:00 PM EST ROMAN ([facility]) Name Value Range Interpretation Code Description Data Kaye rce(s) Supporting Document(s) lipase 68 U/L 73-393 Below low normal Lipase ROMAN ( [facility]) ID Date Data Source [id number] 02/17/2020 04:21:00 PM EST ROMAN ([facility]) Name Value Range Interpretation Code Description Data Kaye rce(s) Supporting Document(s) acetone/ketone > 46.00 <2.81 Above high normal Acetone/ketone BRYAN ([facility]) ID Date Data Source [id number] 02/17/2020 04:21:00 PM EST ROMAN ([facility]) Name Value Range Interpretation Code Description Data Kaye rce(s) Supporting Document(s) glucose, fasting 337 mg/dL 70-100 Above high normal Glucose, Fas ting ROMAN ([facility]) blood urea nitrogen 49 mg/dL 7-18 Above high normal Blood Ure a Nitrogen ROMAN ([facility]) creatinine for GFR 1.73 mg/dL 0.55-1.30 Above high normal Creatinine for GFR ROMAN ([facility]) glomerular filtration rate >58 Below low normal Beata merular Filtration Rate ROMAN ([facility]) sodium level 132 mEq/L 136-145 Below low normal Sodium Level ATHE NA ([facility]) potassium serum 4.1 mEq/L 3.5-5.1 Potassium Serum ATHE NA ([facility]) chloride level 95 mEq/L 98-107 Below low normal Chloride Level ROMAN ([facility]) calcium level 9.5 mg/dL 8.5-10.1 Calcium Level ROMAN ( [facility]) anion gap 20 mEq/L 8-16 Above high normal Anion Gap ROMAN ([facility]) carbon dioxide level 17 mEq/L 21-32 Below low normal Carbon Di oxide Level ROMAN ([facility]) ID Date Data Source [id number] 02/17/2020 04:21:00 PM EST ROMAN ([facility]) Name Value Range Interpretation Code Description Data Kaye rce(s) Supporting Document(s) AST/SGOT 22 U/L 7-37 AST/SGOT ROMAN ([facility]) ALT/SGPT 18 U/L 12-78 ALT/SGPT ROMAN ([facility]) alkaline phosphatase 79 U/L 45-117 Alkaline Phosph atase ROMAN ([facility]) bilirubin,total 1.0 mg/dL 0.2-1.0 Bilirubin,total ATHE ([facility]) bilirubin,direct 0.2 mg/dL 0.0-0.2 Bilirubin,direct AT TRAM ([facility]) total protein 8.2 gm/dL 6.4-8.2 Total Protein ROMAN ( [facility]) albumin 4.3 gm/dL 3.2-5.2 Albumin ROMAN ([facility]) albumin/globulin ratio 1.2-2.2 Below low normal Albumin /globulin Ratio ROMAN ([facility]) ID Date Data Source [id number] 02/17/2020 04:21:00 PM EST ROMAN ([facility]) Name Value Range Interpretation Code Description Data Kaye rce(s) Supporting Document(s) osmolality serum 311 mOsm/kg 275-295 Above high normal Osmolality Serum ROMAN ([facility]) ID Date Data Source [id number] 02/17/2020 04:21:00 PM EST ROMAN ([facility]) Name Value Range Interpretation Code Description Data Kaye rce(s) Supporting Document(s) lipase 68 U/L 73-393 Below low normal Lipase ROMAN ( [facility]) ID Date Data Source [id number] 02/17/2020 04:21:00 PM EST ROMAN ([facility]) Name Value Range Interpretation Code Description Data Kaye rce(s) Supporting Document(s) acetone/ketone > 46.00 <2.81 Above high normal Acetone/ketone ROMAN ([facility]) ID Date Data Source [id number] 02/17/2020 04:21:00 PM EST ROMAN ([facility]) Name Value Range Interpretation Code Description Data Kaye rce(s) Supporting Document(s) glucose, fasting 337 mg/dL 70-100 Above high normal Glucose, Fas ting ROMAN ([facility]) creatinine for GFR 1.73 mg/dL 0.55-1.30 Above high normal Creatinine for GFR ROMAN ([facility]) blood urea nitrogen 49 mg/dL 7-18 Above high normal Blood Ure a Nitrogen ROMAN ([facility]) glomerular filtration rate >58 Below low normal Beata merular Filtration Rate ROMAN ([facility]) potassium serum 4.1 mEq/L 3.5-5.1 Potassium Serum ATHE NA ([facility]) chloride level 95 mEq/L 98-107 Below low normal Chloride Level ROMAN ([facility]) sodium level 132 mEq/L 136-145 Below low normal Sodium Level ATHE NA ([facility]) anion gap 20 mEq/L 8-16 Above high normal Anion Gap ROMAN ([facility]) carbon dioxide level 17 mEq/L 21-32 Below low normal Carbon Di oxide Level ROMAN ([facility]) calcium level 9.5 mg/dL 8.5-10.1 Calcium Level ROMAN ( [facility]) ID Date Data Source [id number] 02/17/2020 04:21:00 PM EST ROMAN ([facility]) Name Value Range Interpretation Code Description Data Kaye rce(s) Supporting Document(s) ALT/SGPT 18 U/L 12-78 ALT/SGPT ROMAN ([facility]) AST/SGOT 22 U/L 7-37 AST/SGOT ROMAN ([facility]) bilirubin,direct 0.2 mg/dL 0.0-0.2 Bilirubin,direct AT TRAM ([facility]) alkaline phosphatase 79 U/L 45-117 Alkaline Phosph atase ROMAN ([facility]) bilirubin,total 1.0 mg/dL 0.2-1.0 Bilirubin,total ATHE ([facility]) albumin 4.3 gm/dL 3.2-5.2 Albumin BRYAN ([facility]) total protein 8.2 gm/dL 6.4-8.2 Total Protein ROMAN ( [facility]) albumin/globulin ratio 1.2-2.2 Below low normal Albumin /globulin Ratio ORMAN ([facility]) ID Date Data Source [id number] 02/17/2020 04:21:00 PM EST ROMAN ([facility]) Name Value Range Interpretation Code Description Data Kaye rce(s) Supporting Document(s) blood urea nitrogen 49 mg/dL 7-18 Above high normal Blood Ure a Nitrogen ROMAN ([facility]) glucose, fasting 337 mg/dL 70-100 Above high normal Glucose, Fas ting ROMAN ([facility]) sodium level 132 mEq/L 136-145 Below low normal Sodium Level ATHE NA ([facility]) potassium serum 4.1 mEq/L 3.5-5.1 Potassium Serum ATHE NA ([facility]) creatinine for GFR 1.73 mg/dL 0.55-1.30 Above high normal Creatinine for GFR ROMAN ([facility]) glomerular filtration rate >58 Below low normal Beata merular Filtration Rate ROMAN ([facility]) anion gap 20 mEq/L 8-16 Above high normal Anion Gap ROMAN ([facility]) calcium level 9.5 mg/dL 8.5-10.1 Calcium Level ROMAN ( [facility]) chloride level 95 mEq/L 98-107 Below low normal Chloride Level ROMAN ([facility]) carbon dioxide level 17 mEq/L 21-32 Below low normal Carbon Di oxide Level ROMAN ([facility]) ID Date Data Source [id number] 02/17/2020 04:21:00 PM EST ROMAN ([facility]) Name Value Range Interpretation Code Description Data Kaye rce(s) Supporting Document(s) ALT/SGPT 18 U/L 12-78 ALT/SGPT ROMAN ([facility]) AST/SGOT 22 U/L 7-37 AST/SGOT ROMAN ([facility]) alkaline phosphatase 79 U/L 45-117 Alkaline Phosph atase ROMAN ([facility]) bilirubin,total 1.0 mg/dL 0.2-1.0 Bilirubin,total ATHE NA ([facility]) total protein 8.2 gm/dL 6.4-8.2 Total Protein ROMAN ( [facility]) bilirubin,direct 0.2 mg/dL 0.0-0.2 Bilirubin,direct AT TRAM ([facility]) albumin 4.3 gm/dL 3.2-5.2 Albumin ROMAN ([facility]) albumin/globulin ratio 1.2-2.2 Below low normal Albumin /globulin Ratio ROMAN ([facility]) ID Date Data Source [id number] 02/17/2020 04:21:00 PM EST ROMAN ([facility]) Name Value Range Interpretation Code Description Data Kaye rce(s) Supporting Document(s) osmolality serum 311 mOsm/kg 275-295 Above high normal Osmolality Serum ROMAN ([facility]) ID Date Data Source [id number] 02/17/2020 04:21:00 PM EST ROMAN ([facility]) Name Value Range Interpretation Code Description Data Kaye rce(s) Supporting Document(s) lipase 68 U/L 73-393 Below low normal Lipase BRYAN ( [facility]) ID Date Data Source [id number] 02/17/2020 04:21:00 PM EST BRYAN ([facility]) Name Value Range Interpretation Code Description Data Kaye rce(s) Supporting Document(s) acetone/ketone > 46.00 <2.81 Above high normal Acetone/ketone BRYAN ([facility]) ID Date Data Source [id number] 02/17/2020 01:36:00 PM EST [facility]) Name Value Range Interpretation Code Description Data Kaye rce(s) Supporting Document(s) sars covid-19 amplification negative negative Sars Cov id-19 Amplification [facility]) ID Date Data Source [id number] 02/17/2020 01:36:00 PM EST [facility]) Name Value Range Interpretation Code Description Data Kaye rce(s) Supporting Document(s) sars covid-19 amplification negative negative Sars Cov id-19 Amplification [facility]) ID Date Data Source [id number] 02/17/2020 01:36:00 PM EST [facility]) Name Value Range Interpretation Code Description Data Kaye rce(s) Supporting Document(s) sars covid-19 amplification negative negative Sars Cov id-19 Amplification [facility]) ID Date Data Source [id number] 02/17/2020 01:36:00 PM EST [facility]) Name Value Range Interpretation Code Description Data Kaye rce(s) Supporting Document(s) sars covid-19 amplification negative negative Sars Cov id-19 Amplification [facility]) ID Date Data Source [id number] 02/17/2020 01:36:00 PM EST BRYAN ([facility]) Name Value Range Interpretation Code Description Data Kaye rce(s) Supporting Document(s) sars covid-19 amplification negative negative Sars Cov id-19 Amplification ROMAN ([facility]) ID Date Data Source [id number] 02/17/2020 01:36:00 PM EST ROMAN ([facility]) Name Value Range Interpretation Code Description Data Kaye rce(s) Supporting Document(s) sars covid-19 amplification negative negative Sars Cov id-19 Amplification BRYAN ([facility]) ID Date Data Source [id number] 02/17/2020 01:36:00 PM EST [facility]) Name Value Range Interpretation Code Description Data Kaye rce(s) Supporting Document(s) sars covid-19 amplification negative negative Sars Cov id-19 Amplification [facility]) ID Date Data Source [id number] 02/17/2020 01:25:00 PM EST BRYAN ([facility]) Name Value Range Interpretation Code Description Data Kaye rce(s) Supporting Document(s) estimated average glucose 197 mg/dL 60-110 Above high norm al Estimated Average Glucose BRYAN ([facility]) Hemoglobin A1c/Hemoglobin.total in Blood 8.5 % Hemoglobin a1C [facility]) ID Date Data Source [id number] 02/17/2020 01:25:00 PM EST [facility]) Name Value Range Interpretation Code Description Data Kaye rce(s) Supporting Document(s) venous partial pressure O2 83.8 mmHg 30.0-50.0 Above high nor mal Venous Partial Pressure O2 BRYAN ([facility]) venous pH 7.371 units 7.330-7.430 Venous pH BRYAN ([facility]) venous partial pressure CO2 30.6 mmHg 38.0-50.0 Below low nor mal Venous Partial Pressure CO2 ROMAN ([facility]) venous base excess -2.0-2.0 Below low normal Venous Base Excess ROMAN ([facility]) venous HCO3 17.3 mEq/L 23.0-27.0 Below low normal Venous HCO3 [facility] [facility] venous total CO2 18.3 mEq/L 24.0-28.0 Below low normal Venous Total CO2 [facility] ([facility]) venous standard HCO3 18.9 mEq/L Venous Standard HCO3 [facility] ([facility]) venous O2 saturation 96.0 % 60.0-80.0 Above high normal Venous O 2 Saturation [facility] ([facility]) ID Date Data Source [id number] 02/17/2020 01:25:00 PM EST [facility] ([facility]) Name Value Range Interpretation Code Description Data Kaye rce(s) Supporting Document(s) venous partial pressure O2 83.8 mmHg 30.0-50.0 Above high nor mal Venous Partial Pressure O2 [facility] ([facility]) venous partial pressure CO2 30.6 mmHg 38.0-50.0 Below low nor mal Venous Partial Pressure CO2 [facility] ([facility]) venous pH 7.371 units 7.330-7.430 Venous pH [facility] ([facility]) venous total CO2 18.3 mEq/L 24.0-28.0 Below low normal Venous Total CO2 [facility] ([facility]) venous HCO3 17.3 mEq/L 23.0-27.0 Below low normal Venous HCO3 [facility] ([facility]) venous standard HCO3 18.9 mEq/L Venous Standard HCO3 [facility] ([facility]) venous base excess -2.0-2.0 Below low normal Venous Base Excess [facility] ([facility]) venous O2 saturation 96.0 % 60.0-80.0 Above high normal Venous O 2 Saturation [facility] ([facility]) ID Date Data Source [id number] 02/17/2020 01:25:00 PM EST ROM[facility] ([facility]) Name Value Range Interpretation Code Description Data Kaye rce(s) Supporting Document(s) white blood count 9.6 10 4.0-10.0 White Blood Count [facility] ([facility]) hematocrit 33.8 % 36.0-47.0 Below low normal Hematocrit [facility] ( [facility]) hemoglobin 11.0 g/dL 12.0-15.5 Below low normal Hemoglobin [facility] ( [facility]) red blood count 3.98 10 4.00-5.40 Below low normal Red Blood Coun t ROMAN ([facility]) mean corpuscular hemoglobin 27.6 pg 27.0-33.0 Mean Cor puscular Hemoglobin [facility] ([facility]) mean corpuscular volume 84.9 fL 80.0-96.0 Mean Corpusc ular Volume [facility] ([facility]) platelet count, automated 333 10 150-450 Platelet C ount, Automated ROM[facility] ([facility]) red cell distribution width 15.0 % 11.5-14.5 Above high no rmal Red Cell Distribution Width [facility] ([facility]) mean corpuscular HGB conc 32.5 g/dL 32.0-36.5 Mean Corpu scular HGB Conc [facility] ([facility]) lymph % 14.8 % 24.0-44.0 Below low normal Lymph % [facility] ( [facility]) neutrophils % 78.2 % 36.0-66.0 Above high normal Neutrophils % A THENA ([facility]) mono % 6.1 % 0.0-5.0 Above high normal [place] % [facility] ([facility]) eos % 0.1 % 0.0-3.0 Eos % ROMAN ([facility]) baso % 0.5 % 0.0-1.0 Baso % [facility] ([facility]) nucleated red blood cell % 0.0 % 0-0 Nucleated Red Blood Cell % [facility] ([facility]) immature granulocyte % 0.3 % 0-3.0 Immature Gran ulocyte % [facility] ([facility]) neutrophils # 7.5 10 1.5-8.5 Neutrophils # [facility]AN ( [facility]) lymph # 1.4 10 1.5-5.0 Below low normal Lymph # [facility]YAN ( [facility]) baso # 0.1 10 0.0-0.2 Baso # ROMAN ([facility]) mono # 0.6 10 0.0-0.8 [place] # ROMAN ([facility]) eos # 0.0 10 0.0-0.5 Eos # [facility] ([facility]) ID Date Data Source [id number] 02/17/2020 01:25:00 PM EST [facility] ([facility]) Name Value Range Interpretation Code Description Data Kaye rce(s) Supporting Document(s) estimated average glucose 197 mg/dL 60-110 Above high norm al Estimated Average Glucose [facility] ([facility]) Hemoglobin A1c/Hemoglobin.total in Blood 8.5 % Hemoglobin a1C [facility] ([facility]) ID Date Data Source [id number] 02/17/2020 01:25:00 PM EST ROMAN ([facility]) Name Value Range Interpretation Code Description Data Kaye rce(s) Supporting Document(s) venous pH 7.371 units 7.330-7.430 Venous pH [facility] ([facility]) venous partial pressure CO2 30.6 mmHg 38.0-50.0 Below low nor mal Venous Partial Pressure CO2 [facility] ([facility]) venous partial pressure O2 83.8 mmHg 30.0-50.0 Above high nor mal Venous Partial Pressure O2 [facility] ([facility]) venous HCO3 17.3 mEq/L 23.0-27.0 Below low normal Venous HCO3 [facility] ([facility]) venous total CO2 18.3 mEq/L 24.0-28.0 Below low normal Venous Total CO2 [facility] ([facility]) venous base excess -2.0-2.0 Below low normal Venous Base Excess [facility] ([facility]) venous standard HCO3 18.9 mEq/L Venous Standard HCO3 [facility] ([facility]) venous O2 saturation 96.0 % 60.0-80.0 Above high normal Venous O 2 Saturation [facility]) ID Date Data Source [id number] 02/17/2020 01:25:00 PM EST ROMAN ([facility]) Name Value Range Interpretation Code Description Data Kaye rce(s) Supporting Document(s) venous partial pressure CO2 30.6 mmHg 38.0-50.0 Below low nor mal Venous Partial Pressure CO2 [facility] ([facility]) venous pH 7.371 units 7.330-7.430 Venous pH [facility] ([facility]) venous partial pressure O2 83.8 mmHg 30.0-50.0 Above high nor mal Venous Partial Pressure O2 [facility] ([facility]) venous total CO2 18.3 mEq/L 24.0-28.0 Below low normal Venous Total CO2 [facility] ([facility]) venous base excess -2.0-2.0 Below low normal Venous Base Excess [facility] ([facility]) venous HCO3 17.3 mEq/L 23.0-27.0 Below low normal Venous HCO3 [facility] ([facility]) venous standard HCO3 18.9 mEq/L Venous Standard HCO3 [facility] ([facility]) venous O2 saturation 96.0 % 60.0-80.0 Above high normal Venous O 2 Saturation [facility] ([facility]) ID Date Data Source [id number] 02/17/2020 01:25:00 PM EST ROMAN ([facility]) Name Value Range Interpretation Code Description Data Kaye rce(s) Supporting Document(s) white blood count 9.6 10 4.0-10.0 White Blood Count [facility] ([facility]) red blood count 3.98 10 4.00-5.40 Below low normal Red Blood Coun t [facility] ([facility]) hemoglobin 11.0 g/dL 12.0-15.5 Below low normal Hemoglobin [facility] ( [facility]) hematocrit 33.8 % 36.0-47.0 Below low normal Hematocrit [facility] ( [facility]) mean corpuscular volume 84.9 fL 80.0-96.0 Mean Corpusc ular Volume [facility] ([facility]) mean corpuscular hemoglobin 27.6 pg 27.0-33.0 Mean Cor puscular Hemoglobin [facility] ([facility]) red cell distribution width 15.0 % 11.5-14.5 Above high no rmal Red Cell Distribution Width [facility] ([facility]) mean corpuscular HGB conc 32.5 g/dL 32.0-36.5 Mean Corpu scular HGB Conc [facility] ([facility]) platelet count, automated 333 10 150-450 Platelet C ount, Automated [facility] ([facility]) neutrophils % 78.2 % 36.0-66.0 Above high normal Neutrophils % A THENA ([facility]) mono % 6.1 % 0.0-5.0 Above high normal [place] % [facility] ([facility]) lymph % 14.8 % 24.0-44.0 Below low normal Lymph % [facility]AN ( [facility]) eos % 0.1 % 0.0-3.0 Eos % [facility] ([facility]) baso % 0.5 % 0.0-1.0 Baso % [facility] ([facility]) immature granulocyte % 0.3 % 0-3.0 Immature Gran ulocyte % [facility] ([facility]) neutrophils # 7.5 10 1.5-8.5 Neutrophils # ROMAN ( [facility]) nucleated red blood cell % 0.0 % 0-0 Nucleated Red Blood Cell % [facility] ([facility]) lymph # 1.4 10 1.5-5.0 Below low normal Lymph # ROMAN ( [facility]) mono # 0.6 10 0.0-0.8 [place] # ROMAN ([facility]) baso # 0.1 10 0.0-0.2 Baso # ROMAN ([facility]) eos # 0.0 10 0.0-0.5 Eos # [facility] ([facility]) ID Date Data Source [id number] 02/17/2020 01:25:00 PM EST [facility] ([facility]) Name Value Range Interpretation Code Description Data Kaye rce(s) Supporting Document(s) venous pH 7.371 units 7.330-7.430 Venous pH [facility] ([facility]) venous partial pressure CO2 30.6 mmHg 38.0-50.0 Below low nor mal Venous Partial Pressure CO2 [facility] ([facility]) venous total CO2 18.3 mEq/L 24.0-28.0 Below low normal Venous Total CO2 [facility] ([facility]) venous partial pressure O2 83.8 mmHg 30.0-50.0 Above high nor mal Venous Partial Pressure O2 [facility] ([facility]) venous HCO3 17.3 mEq/L 23.0-27.0 Below low normal Venous HCO3 [facility] ([facility]) venous standard HCO3 18.9 mEq/L Venous Standard HCO3 [facility] ([facility]) venous base excess -2.0-2.0 Below low normal Venous Base Excess [facility] ([facility]) venous O2 saturation 96.0 % 60.0-80.0 Above high normal Venous O 2 Saturation [facility] ([facility]) ID Date Data Source [id number] 02/17/2020 01:25:00 PM EST [facility] ([facility]) Name Value Range Interpretation Code Description Data Kaye rce(s) Supporting Document(s) venous partial pressure CO2 30.6 mmHg 38.0-50.0 Below low nor mal Venous Partial Pressure CO2 [facility] ([facility]) venous pH 7.371 units 7.330-7.430 Venous pH [facility] ([facility]) venous total CO2 18.3 mEq/L 24.0-28.0 Below low normal Venous Total CO2 [facility] ([facility]) venous partial pressure O2 83.8 mmHg 30.0-50.0 Above high nor mal Venous Partial Pressure O2 [facility] ([facility]) venous HCO3 17.3 mEq/L 23.0-27.0 Below low normal Venous HCO3 [facility] ([facility]) venous standard HCO3 18.9 mEq/L Venous Standard HCO3 [facility] ([facility]) venous base excess -2.0-2.0 Below low normal Venous Base Excess [facility] ([facility]) venous O2 saturation 96.0 % 60.0-80.0 Above high normal Venous O 2 Saturation [facility] ([facility]) ID Date Data Source [id number] 02/17/2020 01:25:00 PM EST [facility] ([facility]) Name Value Range Interpretation Code Description Data Kaye rce(s) Supporting Document(s) white blood count 9.6 10 4.0-10.0 White Blood Count [facility] ([facility]) hemoglobin 11.0 g/dL 12.0-15.5 Below low normal Hemoglobin [facility] ( [facility]) red blood count 3.98 10 4.00-5.40 Below low normal Red Blood Coun t [facility] ([facility]) hematocrit 33.8 % 36.0-47.0 Below low normal Hematocrit [facility] ( [facility]) mean corpuscular hemoglobin 27.6 pg 27.0-33.0 Mean Cor puscular Hemoglobin [facility] ([facility]) mean corpuscular volume 84.9 fL 80.0-96.0 Mean Corpusc ular Volume [facility] ([facility]) mean corpuscular HGB conc 32.5 g/dL 32.0-36.5 Mean Corpu scular HGB Conc [facility] ([facility]) red cell distribution width 15.0 % 11.5-14.5 Above high no rmal Red Cell Distribution Width [facility] ([facility]) neutrophils % 78.2 % 36.0-66.0 Above high normal Neutrophils % A THENA ([facility]) platelet count, automated 333 10 150-450 Platelet C ount, Automated [facility] ([facility]) lymph % 14.8 % 24.0-44.0 Below low normal Lymph % [facility] ( [facility]) mono % 6.1 % 0.0-5.0 Above high normal [place] % [facility] ([facility]) eos % 0.1 % 0.0-3.0 Eos % ROMAN ([facility]) baso % 0.5 % 0.0-1.0 Baso % ROM[facility] ([facility]) immature granulocyte % 0.3 % 0-3.0 Immature Gran ulocyte % [facility] ([facility]) nucleated red blood cell % 0.0 % 0-0 Nucleated Red Blood Cell % [facility] ([facility]) neutrophils # 7.5 10 1.5-8.5 Neutrophils # ROMAN ( [facility]) mono # 0.6 10 0.0-0.8 [place] # ROMAN ([facility]) lymph # 1.4 10 1.5-5.0 Below low normal Lymph # ROMAN ( [facility]) eos # 0.0 10 0.0-0.5 Eos # ROMAN ([facility]) baso # 0.1 10 0.0-0.2 Baso # [facility] ([facility]) ID Date Data Source [id number] 02/17/2020 01:25:00 PM EST [facility] ([facility]) Name Value Range Interpretation Code Description Data Kaye rce(s) Supporting Document(s) Hemoglobin A1c/Hemoglobin.total in Blood 8.5 % Hemoglobin a1C [facility] ([facility]) estimated average glucose 197 mg/dL 60-110 Above high norm al Estimated Average Glucose [facility] ([facility]) ID Date Data Source [id number] 02/17/2020 01:25:00 PM EST ROMAN ([facility]) Name Value Range Interpretation Code Description Data Kaye rce(s) Supporting Document(s) venous pH 7.371 units 7.330-7.430 Venous pH [facility] ([facility]) venous partial pressure CO2 30.6 mmHg 38.0-50.0 Below low nor mal Venous Partial Pressure CO2 [facility] ([facility]) venous total CO2 18.3 mEq/L 24.0-28.0 Below low normal Venous Total CO2 [facility] ([facility]) venous partial pressure O2 83.8 mmHg 30.0-50.0 Above high nor mal Venous Partial Pressure O2 [facility] ([facility]) venous HCO3 17.3 mEq/L 23.0-27.0 Below low normal Venous HCO3 [facility] ([facility]) venous standard HCO3 18.9 mEq/L Venous Standard HCO3 [facility] ([facility]) venous base excess -2.0-2.0 Below low normal Venous Base Excess [facility] ([facility]) venous O2 saturation 96.0 % 60.0-80.0 Above high normal Venous O 2 Saturation [facility] ([facility]) ID Date Data Source [id number] 02/17/2020 01:25:00 PM EST [facility] ([facility]) Name Value Range Interpretation Code Description Data Kaye rce(s) Supporting Document(s) venous partial pressure CO2 30.6 mmHg 38.0-50.0 Below low nor mal Venous Partial Pressure CO2 [facility] ([facility]) venous pH 7.371 units 7.330-7.430 Venous pH [facility] ([facility]) venous total CO2 18.3 mEq/L 24.0-28.0 Below low normal Venous Total CO2 [facility] ([facility]) venous partial pressure O2 83.8 mmHg 30.0-50.0 Above high nor mal Venous Partial Pressure O2 [facility] ([facility]) venous HCO3 17.3 mEq/L 23.0-27.0 Below low normal Venous HCO3 [facility] ([facility]) venous standard HCO3 18.9 mEq/L Venous Standard HCO3 [facility] ([facility]) venous O2 saturation 96.0 % 60.0-80.0 Above high normal Venous O 2 Saturation [facility] ([facility]) venous base excess -2.0-2.0 Below low normal Venous Base Excess [facility] ([facility]) ID Date Data Source [id number] 02/17/2020 01:25:00 PM EST [facility] ([facility]) Name Value Range Interpretation Code Description Data Kaye rce(s) Supporting Document(s) red blood count 3.98 10 4.00-5.40 Below low normal Red Blood Coun t [facility] ([facility]) white blood count 9.6 10 4.0-10.0 White Blood Count [facility] ([facility]) hematocrit 33.8 % 36.0-47.0 Below low normal Hematocrit [facility] ( [facility]) hemoglobin 11.0 g/dL 12.0-15.5 Below low normal Hemoglobin [facility] ( [facility]) mean corpuscular volume 84.9 fL 80.0-96.0 Mean Corpusc ular Volume [facility] ([facility]) mean corpuscular hemoglobin 27.6 pg 27.0-33.0 Mean Cor puscular Hemoglobin [facility] ([facility]) mean corpuscular HGB conc 32.5 g/dL 32.0-36.5 Mean Corpu scular HGB Conc [facility] ([facility]) red cell distribution width 15.0 % 11.5-14.5 Above high no rmal Red Cell Distribution Width [facility] ([facility]) neutrophils % 78.2 % 36.0-66.0 Above high normal Neutrophils % A THENA ([facility]) platelet count, automated 333 10 150-450 Platelet C ount, Automated [facility] ([facility]) lymph % 14.8 % 24.0-44.0 Below low normal Lymph % ROMAN ( [facility]) eos % 0.1 % 0.0-3.0 Eos % ROMAN ([facility]) mono % 6.1 % 0.0-5.0 Above high normal [place] % ROMAN ([facility]) immature granulocyte % 0.3 % 0-3.0 Immature Gran ulocyte % [facility] ([facility]) baso % 0.5 % 0.0-1.0 Baso % ROMAN ([facility]) neutrophils # 7.5 10 1.5-8.5 Neutrophils # ROMAN ( [facility]) lymph # 1.4 10 1.5-5.0 Below low normal Lymph # ROMAN ( [facility]) nucleated red blood cell % 0.0 % 0-0 Nucleated Red Blood Cell % [facility] ([facility]) mono # 0.6 10 0.0-0.8 [place] # ROMAN ([facility]) eos # 0.0 10 0.0-0.5 Eos # ROMAN ([facility]) baso # 0.1 10 0.0-0.2 Baso # ROMAN ([facility]) ID Date Data Source [id number] 02/17/2020 01:25:00 PM EST [facility] ([facility]) Name Value Range Interpretation Code Description Data Kaye rce(s) Supporting Document(s) estimated average glucose 197 mg/dL 60-110 Above high norm al Estimated Average Glucose [facility] ([facility]) Hemoglobin A1c/Hemoglobin.total in Blood 8.5 % Hemoglobin a1C [facility] ([facility]) ID Date Data Source [id number] 02/17/2020 01:25:00 PM EST [facility]AN ([facility]) Name Value Range Interpretation Code Description Data Kaye rce(s) Supporting Document(s) Hemoglobin A1c/Hemoglobin.total in Blood 8.5 % Hemoglobin a1C [facility] ([facility]) estimated average glucose 197 mg/dL 60-110 Above high norm al Estimated Average Glucose [facility] ([facility]) ID Date Data Source [id number] 02/17/2020 01:25:00 PM EST [facility] ([facility]) Name Value Range Interpretation Code Description Data Kaye rce(s) Supporting Document(s) venous partial pressure CO2 30.6 mmHg 38.0-50.0 Below low nor mal Venous Partial Pressure CO2 [facility] ([facility]) venous pH 7.371 units 7.330-7.430 Venous pH [facility] ([facility]) venous HCO3 17.3 mEq/L 23.0-27.0 Below low normal Venous HCO3 [facility] ([facility]) venous partial pressure O2 83.8 mmHg 30.0-50.0 Above high nor mal Venous Partial Pressure O2 [facility] ([facility]) venous total CO2 18.3 mEq/L 24.0-28.0 Below low normal Venous Total CO2 [facility] ([facility]) venous base excess -2.0-2.0 Below low normal Venous Base Excess [facility] ([facility]) venous standard HCO3 18.9 mEq/L Venous Standard HCO3 [facility] ([facility]) venous O2 saturation 96.0 % 60.0-80.0 Above high normal Venous O 2 Saturation ROAMN ([facility]) ID Date Data Source [id number] 02/17/2020 01:25:00 PM EST ROMAN ([facility]) Name Value Range Interpretation Code Description Data Kaye rce(s) Supporting Document(s) venous pH 7.371 units 7.330-7.430 Venous pH [facility] ([facility]) venous partial pressure O2 83.8 mmHg 30.0-50.0 Above high nor mal Venous Partial Pressure O2 [facility] ([facility]) venous partial pressure CO2 30.6 mmHg 38.0-50.0 Below low nor mal Venous Partial Pressure CO2 [facility] ([facility]) venous base excess -2.0-2.0 Below low normal Venous Base Excess [facility] ([facility]) venous total CO2 18.3 mEq/L 24.0-28.0 Below low normal Venous Total CO2 [facility] ([facility]) venous HCO3 17.3 mEq/L 23.0-27.0 Below low normal Venous HCO3 [facility] ([facility]) venous standard HCO3 18.9 mEq/L Venous Standard HCO3 [facility] ([facility]) venous O2 saturation 96.0 % 60.0-80.0 Above high normal Venous O 2 Saturation [facility] ([facility]) ID Date Data Source [id number] 02/17/2020 01:25:00 PM EST [facility]AN ([facility]) Name Value Range Interpretation Code Description Data Kaye rce(s) Supporting Document(s) white blood count 9.6 10 4.0-10.0 White Blood Count [facility] ([facility]) red blood count 3.98 10 4.00-5.40 Below low normal Red Blood Coun t [facility] ([facility]) hemoglobin 11.0 g/dL 12.0-15.5 Below low normal Hemoglobin [facility] ( [facility]) hematocrit 33.8 % 36.0-47.0 Below low normal Hematocrit ROM[facility] ( [facility]) mean corpuscular volume 84.9 fL 80.0-96.0 Mean Corpusc ular Volume [facility] ([facility]) mean corpuscular hemoglobin 27.6 pg 27.0-33.0 Mean Cor puscular Hemoglobin [facility] ([facility]) mean corpuscular HGB conc 32.5 g/dL 32.0-36.5 Mean Corpu scular HGB Conc [facility] ([facility]) red cell distribution width 15.0 % 11.5-14.5 Above high no rmal Red Cell Distribution Width [facility] ([facility]) platelet count, automated 333 10 150-450 Platelet C ount, Automated [facility] ([facility]) neutrophils % 78.2 % 36.0-66.0 Above high normal Neutrophils % A THENA ([facility]) lymph % 14.8 % 24.0-44.0 Below low normal Lymph % BRYAN ( [facility]) mono % 6.1 % 0.0-5.0 Above high normal [place] % ROMAN ([facility]) eos % 0.1 % 0.0-3.0 Eos % ROMAN ([facility]) baso % 0.5 % 0.0-1.0 Baso % ROMAN ([facility]) immature granulocyte % 0.3 % 0-3.0 Immature Gran ulocyte % ROMAN ([facility]) nucleated red blood cell % 0.0 % 0-0 Nucleated Red Blood Cell % [facility] ([facility]) neutrophils # 7.5 10 1.5-8.5 Neutrophils # ROMAN ( [facility]) lymph # 1.4 10 1.5-5.0 Below low normal Lymph # ROMAN ( [facility]) mono # 0.6 10 0.0-0.8 [place] # ROMAN ([facility]) eos # 0.0 10 0.0-0.5 Eos # ROMAN ([facility]) baso # 0.1 10 0.0-0.2 Baso # ROMAN ([facility]) ID Date Data Source [id number] 02/17/2020 01:25:00 PM EST [facility] ([facility]) Name Value Range Interpretation Code Description Data Kaye rce(s) Supporting Document(s) estimated average glucose 197 mg/dL 60-110 Above high norm al Estimated Average Glucose [facility] ([facility]) Hemoglobin A1c/Hemoglobin.total in Blood 8.5 % Hemoglobin a1C [facility] ([facility]) ID Date Data Source [id number] 02/17/2020 01:25:00 PM EST [facility] ([facility]) Name Value Range Interpretation Code Description Data Kaye rce(s) Supporting Document(s) venous partial pressure CO2 30.6 mmHg 38.0-50.0 Below low nor mal Venous Partial Pressure CO2 [facility] ([facility]) venous pH 7.371 units 7.330-7.430 Venous pH [facility] ([facility]) venous partial pressure O2 83.8 mmHg 30.0-50.0 Above high nor mal Venous Partial Pressure O2 [facility] ([facility]) venous total CO2 18.3 mEq/L 24.0-28.0 Below low normal Venous Total CO2 [facility] ([facility]) venous HCO3 17.3 mEq/L 23.0-27.0 Below low normal Venous HCO3 [facility] ([facility]) venous base excess -2.0-2.0 Below low normal Venous Base Excess [facility] ([facility]) venous standard HCO3 18.9 mEq/L Venous Standard HCO3 [facility] ([facility]) venous O2 saturation 96.0 % 60.0-80.0 Above high normal Venous O 2 Saturation [facility] ([facility]) ID Date Data Source [id number] 02/17/2020 01:25:00 PM EST [facility] [facility]) Name Value Range Interpretation Code Description Data Kaye rce(s) Supporting Document(s) venous partial pressure CO2 30.6 mmHg 38.0-50.0 Below low nor mal Venous Partial Pressure CO2 ROMAN ([facility]) venous pH 7.371 units 7.330-7.430 Venous pH ROMAN ([facility]) venous partial pressure O2 83.8 mmHg 30.0-50.0 Above high nor mal Venous Partial Pressure O2 ROMAN ([facility]) venous total CO2 18.3 mEq/L 24.0-28.0 Below low normal Venous Total CO2 ROMAN ([facility]) venous HCO3 17.3 mEq/L 23.0-27.0 Below low normal Venous HCO3 ROMAN ([facility]) venous standard HCO3 18.9 mEq/L Venous Standard HCO3 ROMAN ([facility]) venous base excess -2.0-2.0 Below low normal Venous Base Excess ROMAN ([facility]) venous O2 saturation 96.0 % 60.0-80.0 Above high normal Venous O 2 Saturation BRYAN ([facility]) ID Date Data Source [id number] 02/17/2020 01:25:00 PM EST BRYAN ([facility]) Name Value Range Interpretation Code Description Data Kaye rce(s) Supporting Document(s) white blood count 9.6 10 4.0-10.0 White Blood Count ROMAN ([facility]) red blood count 3.98 10 4.00-5.40 Below low normal Red Blood Coun t BRYAN ([facility]) hemoglobin 11.0 g/dL 12.0-15.5 Below low normal Hemoglobin BRYAN ( [facility]) mean corpuscular volume 84.9 fL 80.0-96.0 Mean Corpusc ular Volume ROMAN ([facility]) hematocrit 33.8 % 36.0-47.0 Below low normal Hematocrit BRYAN ( [facility]) mean corpuscular hemoglobin 27.6 pg 27.0-33.0 Mean Cor puscular Hemoglobin ROMAN ([facility]) red cell distribution width 15.0 % 11.5-14.5 Above high no rmal Red Cell Distribution Width ROMAN ([facility]) mean corpuscular HGB conc 32.5 g/dL 32.0-36.5 Mean Corpu scular HGB Conc ROMAN ([facility]) neutrophils % 78.2 % 36.0-66.0 Above high normal Neutrophils % A THENA ([facility]) lymph % 14.8 % 24.0-44.0 Below low normal Lymph % ROMAN ( [facility]) platelet count, automated 333 10 150-450 Platelet C ount, Automated ROMAN ([facility]) baso % 0.5 % 0.0-1.0 Baso % ROMAN ([facility]) mono % 6.1 % 0.0-5.0 Above high normal [place] % ROMAN ([facility]) eos % 0.1 % 0.0-3.0 Eos % ROMAN ([facility]) immature granulocyte % 0.3 % 0-3.0 Immature Gran ulocyte % ROMAN ([facility]) nucleated red blood cell % 0.0 % 0-0 Nucleated Red Blood Cell % BRYAN ([facility]) lymph # 1.4 10 1.5-5.0 Below low normal Lymph # ROMAN ( [facility]) mono # 0.6 10 0.0-0.8 [place] # ROMAN ([facility]) neutrophils # 7.5 10 1.5-8.5 Neutrophils # ROMAN ( [facility]) eos # 0.0 10 0.0-0.5 Eos # ROMAN ([facility]) baso # 0.1 10 0.0-0.2 Baso # ROMAN ([facility]) ID Date Data Source [id number] 02/17/2020 01:25:00 PM EST ROMAN ([facility]) Name Value Range Interpretation Code Description Data Kaye rce(s) Supporting Document(s) Hemoglobin A1c/Hemoglobin.total in Blood 8.5 % Hemoglobin a1C ROMAN ([facility]) estimated average glucose 197 mg/dL 60-110 Above high norm al Estimated Average Glucose ROMAN ([facility]) ID Date Data Source [id number] 02/17/2020 01:25:00 PM EST ROMAN ([facility]) Name Value Range Interpretation Code Description Data Kaye rce(s) Supporting Document(s) venous pH 7.371 units 7.330-7.430 Venous pH ROMAN ([facility]) venous partial pressure CO2 30.6 mmHg 38.0-50.0 Below low nor mal Venous Partial Pressure CO2 ROMAN ([facility]) venous partial pressure O2 83.8 mmHg 30.0-50.0 Above high nor mal Venous Partial Pressure O2 ROMAN ([facility]) venous base excess -2.0-2.0 Below low normal Venous Base Excess ROMAN ([facility]) venous total CO2 18.3 mEq/L 24.0-28.0 Below low normal Venous Total CO2 ROMAN ([facility]) venous HCO3 17.3 mEq/L 23.0-27.0 Below low normal Venous HCO3 BRYAN ([facility]) venous O2 saturation 96.0 % 60.0-80.0 Above high normal Venous O 2 Saturation BRYAN ([facility]) venous standard HCO3 18.9 mEq/L Venous Standard HCO3 BRYAN ([facility]) ID Date Data Source [id number] 02/17/2020 01:25:00 PM EST BRYAN ([facility]) Name Value Range Interpretation Code Description Data Kaye rce(s) Supporting Document(s) red blood count 3.98 10 4.00-5.40 Below low normal Red Blood Coun t ROMAN ([facility]) hemoglobin 11.0 g/dL 12.0-15.5 Below low normal Hemoglobin ROMAN ( [facility]) white blood count 9.6 10 4.0-10.0 White Blood Count ROMAN ([facility]) mean corpuscular volume 84.9 fL 80.0-96.0 Mean Corpusc ular Volume ROMAN ([facility]) hematocrit 33.8 % 36.0-47.0 Below low normal Hematocrit BRYAN ( [facility]) red cell distribution width 15.0 % 11.5-14.5 Above high no rmal Red Cell Distribution Width ROMAN ([facility]) mean corpuscular hemoglobin 27.6 pg 27.0-33.0 Mean Cor puscular Hemoglobin ROMAN ([facility]) mean corpuscular HGB conc 32.5 g/dL 32.0-36.5 Mean Corpu scular HGB Conc ROMAN ([facility]) neutrophils % 78.2 % 36.0-66.0 Above high normal Neutrophils % A THENA ([facility]) lymph % 14.8 % 24.0-44.0 Below low normal Lymph % ROMAN ( [facility]) platelet count, automated 333 10 150-450 Platelet C ount, Automated ROMAN ([facility]) eos % 0.1 % 0.0-3.0 Eos % ROMAN ([facility]) baso % 0.5 % 0.0-1.0 Baso % ROMAN ([facility]) mono % 6.1 % 0.0-5.0 Above high normal [place] % ROMAN ([facility]) immature granulocyte % 0.3 % 0-3.0 Immature Gran ulocyte % ROMAN ([facility]) neutrophils # 7.5 10 1.5-8.5 Neutrophils # BRYAN ( [facility]) nucleated red blood cell % 0.0 % 0-0 Nucleated Red Blood Cell % ROMAN ([facility]) eos # 0.0 10 0.0-0.5 Eos # ROMAN ([facility]) mono # 0.6 10 0.0-0.8 [place] # ROMAN ([facility]) lymph # 1.4 10 1.5-5.0 Below low normal Lymph # ROMAN ( [facility]) baso # 0.1 10 0.0-0.2 Baso # ROMAN ([facility]) ID Date Data Source [id number] 02/17/2020 01:25:00 PM EST ROMAN ([facility]) Name Value Range Interpretation Code Description Data Kaye rce(s) Supporting Document(s) venous pH 7.371 units 7.330-7.430 Venous pH ROMAN ([facility]) venous partial pressure CO2 30.6 mmHg 38.0-50.0 Below low nor mal Venous Partial Pressure CO2 ROMAN ([facility]) venous partial pressure O2 83.8 mmHg 30.0-50.0 Above high nor mal Venous Partial Pressure O2 ROMAN ([facility]) venous total CO2 18.3 mEq/L 24.0-28.0 Below low normal Venous Total CO2 ROMAN ([facility]) venous base excess -2.0-2.0 Below low normal Venous Base Excess ROMAN ([facility]) venous standard HCO3 18.9 mEq/L Venous Standard HCO3 ROMAN ([facility]) venous HCO3 17.3 mEq/L 23.0-27.0 Below low normal Venous HCO3 ROMAN ([facility]) venous O2 saturation 96.0 % 60.0-80.0 Above high normal Venous O 2 Saturation BRYAN ([facility]) ID Date Data Source [id number] 02/17/2020 01:22:00 PM EST BRYAN ([facility]) Name Value Range Interpretation Code Description Data Kaye rce(s) Supporting Document(s) istat HCT 37.0 % 38.0-51.0 Below low normal Istat HCT ROMAN ( [facility]) istat glucose 359 mg/dL 70-105 Above high normal Istat Glucose A THENA ([facility]) istat sodium 127 mEq/L 136-145 Below low normal Istat Sodium ATHE NA ([facility]) istat Ca++ 3.8 mg/dL 4.5-5.3 Below low normal Istat Ca++ ROMAN ( [facility]) istat potassium 7.8 mEq/L 3.5-5.1 Above high normal Istat Potassi um ROMAN ([facility]) istat chloride 96 mEq/L 98-109 Below low normal Istat Chloride ROMAN ([facility]) istat BUN 70 mg/dL 8-26 Above high normal Istat BUN ROMAN ([facility]) istat CO2 21.0 mm/L 23.0-27.0 Below low normal Istat CO2 BRYAN ( [facility]) istat creatinine 1.6 mg/dL 0.6-1.3 Above high normal Istat Creati nine ROMAN ([facility]) ID Date Data Source [id number] 02/17/2020 01:22:00 PM EST ROMAN ([facility]) Name Value Range Interpretation Code Description Data Kaye rce(s) Supporting Document(s) istat HCT 37.0 % 38.0-51.0 Below low normal Istat HCT ROMAN ( [facility]) istat glucose 359 mg/dL 70-105 Above high normal Istat Glucose A THENA ([facility]) istat potassium 7.8 mEq/L 3.5-5.1 Above high normal Istat Potassi um ROMAN ([facility]) istat sodium 127 mEq/L 136-145 Below low normal Istat Sodium ATHE NA ([facility]) istat chloride 96 mEq/L 98-109 Below low normal Istat Chloride ROMAN ([facility]) istat Ca++ 3.8 mg/dL 4.5-5.3 Below low normal Istat Ca++ ROMAN ( [facility]) istat CO2 21.0 mm/L 23.0-27.0 Below low normal Istat CO2 ROMAN ( [facility]) istat BUN 70 mg/dL 8-26 Above high normal Istat BUN ROMAN ([facility]) istat creatinine 1.6 mg/dL 0.6-1.3 Above high normal Istat Creati nine BRYAN ([facility]) ID Date Data Source [id number] 02/17/2020 01:22:00 PM EST ROMAN ([facility]) Name Value Range Interpretation Code Description Data Kaye rce(s) Supporting Document(s) istat HCT 37.0 % 38.0-51.0 Below low normal Istat HCT ROMAN ( [facility]) istat potassium 7.8 mEq/L 3.5-5.1 Above high normal Istat Potassi um ROMAN ([facility]) istat sodium 127 mEq/L 136-145 Below low normal Istat Sodium ATHE NA ([facility]) istat glucose 359 mg/dL 70-105 Above high normal Istat Glucose A THENA ([facility]) istat Ca++ 3.8 mg/dL 4.5-5.3 Below low normal Istat Ca++ ROMAN ( [facility]) istat chloride 96 mEq/L 98-109 Below low normal Istat Chloride ROMAN ([facility]) istat CO2 21.0 mm/L 23.0-27.0 Below low normal Istat CO2 ROMAN ( [facility]) istat creatinine 1.6 mg/dL 0.6-1.3 Above high normal Istat Creati nine ROMAN ([facility]) istat BUN 70 mg/dL 8-26 Above high normal Istat BUN BRYAN ([facility]) ID Date Data Source [id number] 02/17/2020 01:22:00 PM EST ROMAN ([facility]) Name Value Range Interpretation Code Description Data Kaye rce(s) Supporting Document(s) istat HCT 37.0 % 38.0-51.0 Below low normal Istat HCT ROMAN ( [facility]) istat sodium 127 mEq/L 136-145 Below low normal Istat Sodium ATHE NA ([facility]) istat glucose 359 mg/dL 70-105 Above high normal Istat Glucose A THENA ([facility]) istat potassium 7.8 mEq/L 3.5-5.1 Above high normal Istat Potassi um ROMAN ([facility]) istat Ca++ 3.8 mg/dL 4.5-5.3 Below low normal Istat Ca++ ROMAN ( [facility]) istat CO2 21.0 mm/L 23.0-27.0 Below low normal Istat CO2 ROMAN ( [facility]) istat chloride 96 mEq/L 98-109 Below low normal Istat Chloride ROMAN ([facility]) istat BUN 70 mg/dL 8-26 Above high normal Istat BUN ROMAN ([facility]) istat creatinine 1.6 mg/dL 0.6-1.3 Above high normal Istat Creati nine ROMAN ([facility]) ID Date Data Source [id number] 02/17/2020 01:22:00 PM EST ROMAN ([facility]) Name Value Range Interpretation Code Description Data Kaye rce(s) Supporting Document(s) istat HCT 37.0 % 38.0-51.0 Below low normal Istat HCT ROMAN ( [facility]) istat glucose 359 mg/dL 70-105 Above high normal Istat Glucose A THENA ([facility]) istat sodium 127 mEq/L 136-145 Below low normal Istat Sodium ATHE NA ([facility]) istat potassium 7.8 mEq/L 3.5-5.1 Above high normal Istat Potassi um ROMAN ([facility]) istat Ca++ 3.8 mg/dL 4.5-5.3 Below low normal Istat Ca++ ROMAN ( [facility]) istat chloride 96 mEq/L 98-109 Below low normal Istat Chloride ROMAN ([facility]) istat BUN 70 mg/dL 8-26 Above high normal Istat BUN ROMAN ([facility]) istat CO2 21.0 mm/L 23.0-27.0 Below low normal Istat CO2 ROMAN ( [facility]) istat creatinine 1.6 mg/dL 0.6-1.3 Above high normal Istat Creati nine ROMAN ([facility]) ID Date Data Source [id number] 02/17/2020 01:22:00 PM EST ROMAN ([facility]) Name Value Range Interpretation Code Description Data Kaye rce(s) Supporting Document(s) istat HCT 37.0 % 38.0-51.0 Below low normal Istat HCT ROMAN ( [facility]) istat glucose 359 mg/dL 70-105 Above high normal [facility] istat sodium 127 mEq/L 136-145 Below low normal Istat Sodium ATHE NA ([facility]) istat potassium 7.8 mEq/L 3.5-5.1 Above high normal Istat Potassi um ROMAN ([facility]) istat Ca++ 3.8 mg/dL 4.5-5.3 Below low normal Istat Ca++ ROMAN ( [facility]) istat chloride 96 mEq/L 98-109 Below low normal Istat Chloride ROMAN ([facility]) istat BUN 70 mg/dL 8-26 Above high normal Istat BUN [facility] ([facility]) istat creatinine 1.6 mg/dL 0.6-1.3 Above high normal Istat Creati nine ROMAN ([facility]) istat CO2 21.0 mm/L 23.0-27.0 Below low normal Istat CO2 ROMAN ( [facility]) ID Date Data Source [id number] 02/17/2020 01:22:00 PM EST ROMAN ([facility]) Name Value Range Interpretation Code Description Data Kaye rce(s) Supporting Document(s) istat HCT 37.0 % 38.0-51.0 Below low normal Istat HCT ROMAN ( [facility]) istat glucose 359 mg/dL 70-105 Above high normal Istat Glucose A THENA ([facility]) istat sodium 127 mEq/L 136-145 Below low normal Istat Sodium ATHE NA ([facility]) istat Ca++ 3.8 mg/dL 4.5-5.3 Below low normal Istat Ca++ ROMAN ( [facility]) istat potassium 7.8 mEq/L 3.5-5.1 Above high normal Istat Potassi um ROMAN ([facility]) istat CO2 21.0 mm/L 23.0-27.0 Below low normal Istat CO2 ROMAN ( [facility]) istat chloride 96 mEq/L 98-109 Below low normal Istat Chloride ROMAN ([facility]) istat creatinine 1.6 mg/dL 0.6-1.3 Above high normal Istat Creati nine ROMAN ([facility]) istat BUN 70 mg/dL 8-26 Above high normal Istat BUN [facility] ([facility]) Procedure Social History No Information Vital Signs ID Date Data Source [id number] Name Value Range Interpretation Code Description Data Source(s) Diastolic blood pressure 73 mm[Hg] 73 mm[Hg] ROMAN ([facility]) Body height 67 [in_i] 67 [in_i] ROM[facility] ([facility]) Body mass index (BMI) [Ratio] 24.6 kg/m2 24.6 k g/m2 ROM[facility] ([facility]) Systolic blood pressure 107 mm[Hg] 107 mm[Hg] A [facility] ([facility]) Body weight 2518 [oz_av] 2518 [oz_av] ROMAN ([facility]) Diastolic blood pressure 73 mm[Hg] 73 mm[Hg] ROMAN ([facility]) Body height 67 [in_i] 67 [in_i] ROMAN ([facility]) Body mass index (BMI) [Ratio] 23.5 kg/m2 23.5 k g/m2 ROM[facility] ([facility]) Systolic blood pressure 106 mm[Hg] 106 mm[Hg] A [facility] ([facility]) Body weight 2400 [oz_av] 2400 [oz_av] ROMAN ([facility]) Diastolic blood pressure 73 mm[Hg] 73 mm[Hg] ROMAN ([facility]) Body height 67 [in_i] 67 [in_i] ROM[facility] ([facility]) Body mass index (BMI) [Ratio] 23.5 kg/m2 23.5 k g/m2 ROMAN ([facility]) Systolic blood pressure 106 mm[Hg] 106 mm[Hg] A [facility] ([facility]) Body weight 2400 [oz_av] 2400 [oz_av] ROMAN ([facility]) Body mass index (BMI) [Ratio] 24.9 kg/m2 24.9 k g/m2 ROM[facility] ([facility]) Systolic blood pressure 123 mm[Hg] 123 mm[Hg] [facility] Body weight 2547.2 [oz_av] 2547.2 [oz_av] ATHEN A ([facility]) Diastolic blood pressure 85 mm[Hg] 85 mm[Hg] ROMAN ([facility]) Body height 67 [in_i] 67 [in_i] [facility] ([facility]) Diastolic blood pressure 85 mm[Hg] 85 mm[Hg] ROM[facility] ([facility]) Body height 67 [in_i] 67 [in_i] ROM[facility] ([facility]) Body mass index (BMI) [Ratio] 24.9 kg/m2 24.9 k g/m2 ROMAN ([facility]) Systolic blood pressure 123 mm[Hg] 123 mm[Hg] A THE[facility] ([facility]) Body weight 2547.2 [oz_av] 2547.2 [oz_av] ATHEN A ([facility]) Diastolic blood pressure 85 mm[Hg] 85 mm[Hg] ROMAN ([facility]) Body height 67 [in_i] 67 [in_i] ROMAN ([facility]) Body mass index (BMI) [Ratio] 24.9 kg/m2 24.9 k g/m2 ROMAN ([facility]) Systolic blood pressure 123 mm[Hg] 123 mm[Hg] A THENA ([facility]) Body weight 2547.2 [oz_av] 2547.2 [oz_av] ATHEN A ([facility]) Body height 67 [in_i] 67 [in_i] ROMAN ([facility]) Body mass index (BMI) [Ratio] 24.6 kg/m2 24.6 k g/m2 ROMAN ([facility]) Body weight 2512 [oz_av] 2512 [oz_av] ROMAN ([facility]) Body weight 2512 [oz_av] 2512 [oz_av] ROMAN ([facility]) Body height 67 [in_i] 67 [in_i] ROMAN ([facility]) Body mass index (BMI) [Ratio] 24.6 kg/m2 24.6 k g/m2 ROMAN ([facility]) Body height 67 [in_i] 67 [in_i] ROMAN ([facility]) Body mass index (BMI) [Ratio] 24.6 kg/m2 24.6 k g/m2 ROMAN ([facility]) Body weight 2512 [oz_av] 2512 [oz_av] ROMAN ([facility]) Body height 67 [in_i] 67 [in_i] ROMAN ([facility]) Body mass index (BMI) [Ratio] 24.6 kg/m2 24.6 k g/m2 ROMAN ([facility]) Body weight 2512 [oz_av] 2512 [oz_av] ROMAN ([facility]) Diastolic blood pressure 85 mm[Hg] 85 mm[Hg] ROMAN ([facility]) Body height 67 [in_i] 67 [in_i] ROMAN ([facility]) Body mass index (BMI) [Ratio] 24.7 kg/m2 24.7 k g/m2 ROMAN ([facility]) Systolic blood pressure 123 mm[Hg] 123 mm[Hg] A THENA ([facility]) Body weight 2518.4 [oz_av] 2518.4 [oz_av] ATHEN A ([facility]) Diastolic blood pressure 85 mm[Hg] 85 mm[Hg] ROMAN ([facility]) Body height 67 [in_i] 67 [in_i] ROMAN ([facility]) Body mass index (BMI) [Ratio] 24.7 kg/m2 24.7 k g/m2 ROMAN ([facility]) Systolic blood pressure 123 mm[Hg] 123 mm[Hg] A THENA ([facility]) Body weight 2518.4 [oz_av] 2518.4 [oz_av] ATHEN A ([facility]) Diastolic blood pressure 85 mm[Hg] 85 mm[Hg] ROMAN ([facility]) Body height 67 [in_i] 67 [in_i] ROMAN ([facility]) Body mass index (BMI) [Ratio] 24.7 kg/m2 24.7 k g/m2 ROM[facility] ([facility]) Systolic blood pressure 123 mm[Hg] 123 mm[Hg] [facility] Body weight 2518.4 [oz_av] 2518.4 [oz_av] ATHEN A ([facility]) Diastolic blood pressure 85 mm[Hg] 85 mm[Hg] ROMAN ([facility]) Body height 67 [in_i] 67 [in_i] ROMAN ([facility]) Body mass index (BMI) [Ratio] 24.7 kg/m2 24.7 k g/m2 ROMAN ([facility]) Systolic blood pressure 123 mm[Hg] 123 mm[Hg] A DANIL[facility] ([facility]) Body weight 2518.4 [oz_av] 2518.4 [oz_av] ATHEN A ([facility]) Diastolic blood pressure 85 mm[Hg] 85 mm[Hg] ROMAN ([facility]) Body height 67 [in_i] 67 [in_i] ROMAN ([facility]) Body mass index (BMI) [Ratio] 24.7 kg/m2 24.7 k g/m2 ROMAN ([facility]) Systolic blood pressure 123 mm[Hg] 123 mm[Hg] A [facility] ([facility]) Body weight 2518.4 [oz_av] 2518.4 [oz_av] ATHEN A ([facility]) Diastolic blood pressure 74 mm[Hg] 74 mm[Hg] ROMAN ([facility]) Body height 67 [in_i] 67 [in_i] ROMAN ([facility]) Body mass index (BMI) [Ratio] 24.1 kg/m2 24.1 k g/m2 ROMAN ([facility]) Systolic blood pressure 104 mm[Hg] 104 mm[Hg] [facility] Body weight 2464 [oz_av] 2464 [oz_av] ROMAN ([facility]) Diastolic blood pressure 74 mm[Hg] 74 mm[Hg] ROMAN ([facility]) Body height 67 [in_i] 67 [in_i] ROMAN ([facility]) Body mass index (BMI) [Ratio] 24.1 kg/m2 24.1 k g/m2 ROMAN ([facility]) Systolic blood pressure 104 mm[Hg] 104 mm[Hg] A [facility] ([facility]) Body weight 2464 [oz_av] 2464 [oz_av] ROMAN ([facility]) Diastolic blood pressure 74 mm[Hg] 74 mm[Hg] ROMAN ([facility]) Body height 67 [in_i] 67 [in_i] ROMAN ([facility]) Body mass index (BMI) [Ratio] 24.1 kg/m2 24.1 k g/m2 ROM[facility] ([facility]) Systolic blood pressure 104 mm[Hg] 104 mm[Hg] [facility] Body weight 2464 [oz_av] 2464 [oz_av] ROMAN ([facility]) Diastolic blood pressure 74 mm[Hg] 74 mm[Hg] ROMAN ([facility]) Body height 67 [in_i] 67 [in_i] ROMAN ([facility]) Body mass index (BMI) [Ratio] 24.1 kg/m2 24.1 k g/m2 ROM[facility] ([facility]) Systolic blood pressure 104 mm[Hg] 104 mm[Hg] A THE[facility] ([facility]) Body weight 2464 [oz_av] 2464 [oz_av] ROMAN ([facility]) Diastolic blood pressure 74 mm[Hg] 74 mm[Hg] ROMAN ([facility]) Body height 67 [in_i] 67 [in_i] ROMAN ([facility]) Body mass index (BMI) [Ratio] 24.1 kg/m2 24.1 k g/m2 ROM[facility] ([facility]) Systolic blood pressure 104 mm[Hg] 104 mm[Hg] A [facility] ([facility]) Body weight 2464 [oz_av] 2464 [oz_av] ROMAN ([facility]) Body height 67 [in_i] 67 [in_i] ROMAN ([facility]) Body mass index (BMI) [Ratio] 24.1 kg/m2 24.1 k g/m2 [facility] ([facility]) Systolic blood pressure 104 mm[Hg] 104 mm[Hg] [facility] Body weight 2464 [oz_av] 2464 [oz_av] [facility] [facility]) Diastolic blood pressure 74 mm[Hg] 74 mm[Hg] ROMAN ([facility]) Systolic blood pressure 114 mm[Hg] 114 mm[Hg] [facility] Body weight 2680 [oz_av] 2680 [oz_av] ROMAN ([facility]) Diastolic blood pressure 77 mm[Hg] 77 mm[Hg] ROMAN ([facility]) Body height 67 [in_i] 67 [in_i] ROMAN ([facility]) Body mass index (BMI) [Ratio] 26.2 kg/m2 26.2 k g/m2 ROMAN ([facility]) Diastolic blood pressure 77 mm[Hg] 77 mm[Hg] ROMAN ([facility]) Body height 67 [in_i] 67 [in_i] ROMAN ([facility]) Body mass index (BMI) [Ratio] 26.2 kg/m2 26.2 k g/m2 ROMAN ([facility]) Systolic blood pressure 114 mm[Hg] 114 mm[Hg] [facility] Body weight 2680 [oz_av] 2680 [oz_av] ROMAN ([facility]) Diastolic blood pressure 77 mm[Hg] 77 mm[Hg] ROMAN ([facility]) Body height 67 [in_i] 67 [in_i] ROMAN ([facility]) Body mass index (BMI) [Ratio] 26.2 kg/m2 26.2 k g/m2 ROMAN ([facility]) Systolic blood pressure 114 mm[Hg] 114 mm[Hg] [facility] Body weight 2680 [oz_av] 2680 [oz_av] ROMAN ([facility]) Diastolic blood pressure 77 mm[Hg] 77 mm[Hg] ROMAN ([facility]) Body height 67 [in_i] 67 [in_i] ROMAN ([facility]) Body mass index (BMI) [Ratio] 26.2 kg/m2 26.2 k g/m2 ROMAN ([facility]) Systolic blood pressure 114 mm[Hg] 114 mm[Hg] A THENA ([facility]) Body weight 2680 [oz_av] 2680 [oz_av] ROMAN ([facility]) Diastolic blood pressure 77 mm[Hg] 77 mm[Hg] ROMAN ([facility]) Body height 67 [in_i] 67 [in_i] ROMAN ([facility]) Body mass index (BMI) [Ratio] 26.2 kg/m2 26.2 k g/m2 ROMAN ([facility]) Systolic blood pressure 114 mm[Hg] 114 mm[Hg] A [facility] ([facility]) Body weight 2680 [oz_av] 2680 [oz_av] ROMAN ([facility]) Diastolic blood pressure 77 mm[Hg] 77 mm[Hg] ROMAN ([facility]) Body height 67 [in_i] 67 [in_i] ROMAN ([facility]) Body mass index (BMI) [Ratio] 26.2 kg/m2 26.2 k g/m2 ROMAN ([facility]) Systolic blood pressure 114 mm[Hg] 114 mm[Hg] [facility] Body weight 2680 [oz_av] 2680 [oz_av] ROMAN ([facility]) Diastolic blood pressure 77 mm[Hg] 77 mm[Hg] ROMAN ([facility]) Body height 67 [in_i] 67 [in_i] ROMAN ([facility]) Body mass index (BMI) [Ratio] 26.2 kg/m2 26.2 k g/m2 ROMAN ([facility]) Systolic blood pressure 114 mm[Hg] 114 mm[Hg] [facility] Body weight 2680 [oz_av] 2680 [oz_av] ROMAN ([facility]) Patient Treatment Plan of Care Planned Activity Planned Date Details Description Data Source (s) tramadol hydrochloride 50 MG Oral Tablet ROMAN ([facility]) Prochlorperazine 25 MG Rectal Suppository ROMAN ([facility]) Penicillin V Potassium 500 MG Oral Tablet ROMAN ([facility]) pantoprazole 40 MG Delayed Release Oral Tablet ROMAN ([facility]) 8 HR Acetaminophen 650 MG Extended Release Oral Tablet ROMAN ([facility]) Oxycodone Hydrochloride 5 MG Oral Tablet ROMAN ([facility]) OneTouch Verio Flex Meter USE DIRECTED TO TEST BLOOD SUGAR ROMAN ([facility]) OneTouch Delica Plus Lancet 33 gauge ROMAN ([facility]) Ondansetron 4 MG Oral Tablet ROMAN ([facility]) Ondansetron 4 MG Disintegrating Oral Tablet ROMAN ([facility]) Omeprazole 20 MG Delayed Release Oral Capsule ROMAN ([facility]) insulin human, isophane 70 UNT/ML / Regu lar Insulin, Human 30 UNT/ML Injectable Suspension [Novolin] ROMAN ([facility]) multivitamin Take one daily ROMAN ([facility]) Metoclopramide 5 MG Oral Tablet ROMAN ([facility]) Metoclopramide 10 MG Oral Tablet ROMAN ([facility]) Levemir FlexTouch U-100 Insuln Pen; give 5 units daily ROMAN ([facility]) Regular Insulin, Human 100 UNT/ML Injectable Solution [Humulin R] ROMAN ([facility]) Docusate Sodium 100 MG Oral Capsule ROMAN ([facility]) Sucralfate 1000 MG Oral Tablet [Carafate] ROMAN ([facility]) BD Ultra-Fine Short Pen Needle 31 gauge x 5/16" USE DIRECTED WITH BASAGLAR ONCE DAILY AT BEDTIME ROMAN ([facility]) BD Ultra-Fine Sonya Pen Needle 32 gauge x 5/32" USE UNDER THE SKIN DAILY DIRECTED ROMAN ([facility]) BD Insulin Syringe Ultra-Fine 1 mL 31 gauge x 5/16" USE DIRECTED ROMAN ([facility]) BD Insulin Syringe Ultra-Fine 0.5 mL 31 gauge x 5/16" USE WITH INSULIN MEALS AND AT BEDTIME ROMAN ([facility]) Basaglar KwikPen U-100 Insulin Take 5 units SC daily ROMAN ([facility]) Amoxicillin 875 MG / Clavulanate 125 MG Oral Tablet ROMAN ([facility]) Amoxicillin 875 MG Oral Tablet ROMAN ([facility]) Amitriptyline Hydrochloride 10 MG Oral Tablet ROMAN ([facility]) Isopropyl Alcohol 0.7 ML/ML Medicated Pad ROMAN ([facility]) Acetaminophen 650 MG Oral Tablet ROMAN ([facility]) tramadol hydrochloride 50 MG Oral Tablet ROMAN ([facility]) Prochlorperazine 25 MG Rectal Suppository ROMAN ([facility]) Penicillin V Potassium 500 MG Oral Tablet ROMAN ([facility]) 8 HR Acetaminophen 650 MG Extended Release Oral Tablet ROMNA ([facility]) Oxycodone Hydrochloride 5 MG Oral Tablet ROMAN ([facility]) Ondansetron 4 MG Oral Tablet ROMAN ([facility]) Ondansetron 4 MG Disintegrating Oral Tablet ROMAN ([facility]) Omeprazole 20 MG Delayed Release Oral Capsule ROMAN ([facility]) insulin human, isophane 70 UNT/ML / Regu lar Insulin, Human 30 UNT/ML Injectable Suspension [Novolin] ROMAN ([facility]) Metoclopramide 5 MG Oral Tablet ROMAN ([facility]) Levemir FlexTouch U-100 Insuln Pen; give 5 units daily ROMAN ([facility]) Regular Insulin, Human 100 UNT/ML Injectable Solution [Humulin R] ROMAN ([facility]) Sucralfate 1000 MG Oral Tablet [Carafate] ROMAN ([facility]) Basaglar KwikPen U-100 Insulin 100 unit/mL (3 mL) subcutaneous ROMAN ([facility]) Amoxicillin 875 MG / Clavulanate 125 MG Oral Tablet ROMAN ([facility]) Amoxicillin 875 MG Oral Tablet ROMAN ([facility]) Amitriptyline Hydrochloride 10 MG Oral Tablet ROMAN ([facility]) Acetaminophen 650 MG Oral Tablet ROMAN ([facility]) tramadol hydrochloride 50 MG Oral Tablet ROMAN ([facility]) Prochlorperazine 25 MG Rectal Suppository ROMAN ([facility]) Penicillin V Potassium 500 MG Oral Tablet ROMAN ([facility]) pantoprazole 40 MG Delayed Release Oral Tablet ROMAN ([facility]) 8 HR Acetaminophen 650 MG Extended Release Oral Tablet ROMAN ([facility]) Oxycodone Hydrochloride 5 MG Oral Tablet ROMAN ([facility]) Ondansetron 4 MG Oral Tablet ROMAN ([facility]) Ondansetron 4 MG Disintegrating Oral Tablet ROMAN ([facility]) Omeprazole 20 MG Delayed Release Oral Capsule ROMAN ([facility]) Metoclopramide 5 MG Oral Tablet ROMAN ([facility]) Metoclopramide 10 MG Oral Tablet ROMAN ([facility]) Regular Insulin, Human 100 UNT/ML Injectable Solution [Humulin R] ROMAN ([facility]) Sucralfate 1000 MG Oral Tablet [Carafate] ROMAN ([facility]) Basaglar KwikPen U-100 Insulin 100 unit/mL (3 mL) subcutaneous ROMAN ([facility]) Basaglar KwikPen U-100 Insulin 10 units sc QHS ROMAN ([facility]) Amoxicillin 875 MG / Clavulanate 125 MG Oral Tablet ROMAN ([facility]) Amoxicillin 875 MG Oral Tablet ROMAN ([facility]) Acetaminophen 650 MG Oral Tablet ROMAN ([facility]) tramadol hydrochloride 50 MG Oral Tablet ROMAN ([facility]) Prochlorperazine 25 MG Rectal Suppository ROMAN ([facility]) Penicillin V Potassium 500 MG Oral Tablet ROMAN ([facility]) pantoprazole 40 MG Delayed Release Oral Tablet ROMAN ([facility]) 8 HR Acetaminophen 650 MG Extended Release Oral Tablet ROMAN ([facility]) Oxycodone Hydrochloride 5 MG Oral Tablet ROMAN ([facility]) Ondansetron 4 MG Oral Tablet ROMAN ([facility]) Ondansetron 4 MG Disintegrating Oral Tablet ROMAN ([facility]) Omeprazole 20 MG Delayed Release Oral Capsule ROMAN ([facility]) Metoclopramide 5 MG Oral Tablet ROMAN ([facility]) Metoclopramide 10 MG Oral Tablet ROMAN ([facility]) Sucralfate 1000 MG Oral Tablet [Carafate] ROMAN ([facility]) Basaglar KwikPen U-100 Insulin 100 unit/mL (3 mL) subcutaneous ROMAN ([facility]) Basaglar KwikPen U-100 Insulin 10 units sc QHS ROMAN ([facility]) Amoxicillin 875 MG / Clavulanate 125 MG Oral Tablet ROMAN ([facility]) Amoxicillin 875 MG Oral Tablet ROMAN ([facility]) Acetaminophen 650 MG Oral Tablet ROMAN ([facility]) tramadol hydrochloride 50 MG Oral Tablet ROMAN ([facility]) pantoprazole 40 MG Delayed Release Oral Tablet [Protonix] ROMAN ([facility]) Prochlorperazine 25 MG Rectal Suppository ROMAN ([facility]) Penicillin V Potassium 500 MG Oral Tablet ROMAN ([facility]) 8 HR Acetaminophen 650 MG Extended Release Oral Tablet ROMAN ([facility]) Oxycodone Hydrochloride 5 MG Oral Tablet ROMAN ([facility]) Ondansetron 4 MG Oral Tablet ROMAN ([facility]) Ondansetron 4 MG Disintegrating Oral Tablet ROMAN ([facility]) Omeprazole 20 MG Delayed Release Oral Capsule ROMAN ([facility]) Metoclopramide 5 MG Oral Tablet ROMAN ([facility]) Metoclopramide 10 MG Oral Tablet ROMAN ([facility]) Sucralfate 1000 MG Oral Tablet [Carafate] ROMAN ([facility]) Basaglar KwikPen U-100 Insulin 100 unit/mL (3 mL) subcutaneous ROMAN ([facility]) Basaglar KwikPen U-100 Insulin 10 units sc QHS ROMAN ([facility]) Amoxicillin 875 MG Oral Tablet ROMAN ([facility]) Acetaminophen 650 MG Oral Tablet ROMAN ([facility]) Prochlorperazine 25 MG Rectal Suppository ROMAN ([facility]) Penicillin V Potassium 500 MG Oral Tablet ROMAN ([facility]) Oxycodone Hydrochloride 5 MG Oral Tablet ROMAN ([facility]) Ondansetron 4 MG Oral Tablet ROMAN ([facility]) Ondansetron 4 MG Disintegrating Oral Tablet ROMAN ([facility]) Omeprazole 20 MG Delayed Release Oral Capsule ROMAN ([facility]) Cristianotriravindra BlankElan U-100 Insulin 100 unit/mL (3 mL) subcutaneous ROMAN ([facility]) Amoxicillin 875 MG Oral Tablet ROMAN ([facility]) Prochlorperazine 25 MG Rectal Suppository ROMAN ([facility]) Penicillin V Potassium 500 MG Oral Tablet ROMAN ([facility]) Oxycodone Hydrochloride 5 MG Oral Tablet ROMAN ([facility]) Ondansetron 4 MG Oral Tablet ROMAN ([facility]) Omeprazole 20 MG Delayed Release Oral Capsule ROMAN ([facility]) Metoclopramide 5 MG Oral Tablet ROMAN ([facility]) Metoclopramide 10 MG Oral Tablet ROMAN ([facility])
[2021-02-14 13:19] LABS: BASO % 0.5 % (0.0-1.0); EOS % 0.1 % (0.0-3.0); HEMATOCRIT 35.4 % (36.0-47.0); LYMPH # 1.1 10^3/uL (1.5-5.0); LYMPH % 14.2 % (24.0-44.0); MEAN CORPUSCULAR HEMOGLOBIN 29.1 pg (27.0-33.0); MEAN CORPUSCULAR HGB CONC 33.9 g/dl (32.0-36.5); MEAN CORPUSCULAR VOLUME 85.9 fl (80.0-96.0); MONO # 0.5 10^3/uL (0.0-0.8); MONO % 7.3 % (2.0-8.0); NEUTROPHILS # 5.7 10^3/uL (1.5-8.5); NEUTROPHILS % 77.5 % (36.0-66.0); PLATELET COUNT, AUTOMATED 248 10^3/uL (150-450); RED BLOOD COUNT 4.12 10^6/uL (4.00-5.40); WHITE BLOOD COUNT 7.4 10^3/uL (4.0-10.0)
[2021-02-14 13:34] LABS: VENOUS BASE EXCESS -3.5 (-2.0-2.0); VENOUS HCO3 20.8 MEQ/L (23.0-27.0); VENOUS O2 SATURATION 93.1 % (60.0-80.0); VENOUS PARTIAL PRESSURE CO2 35.1 mmHg (38.0-50.0); VENOUS STANDARD HCO3 21.5 MEQ/L; VENOUS TOTAL CO2 21.8 MEQ/L (24.0-28.0)
[2021-02-14] MEDS ORDERED: SUCRALFATE 1 GM TAB PO ONE (13:35)
[2021-02-14] MEDS ORDERED: METOCLOPRAMIDE INJ 10MG/2ML VIAL (J2765 PER 1) IV ONE (13:35)
[2021-02-14 13:53] LABS: HCG, SERUM QUALITATIVE NEGATIVE (NEGATIVE)
[2021-02-14] MEDS ORDERED: HumuLIN R (REGULAR) INSULIN (NovoLIN R) **100U/ML** PER UNIT IV ONE (14:05)
[2021-02-14 14:27] LABS: ALT/SGPT 35 IU/L (0-32); BILIRUBIN,TOTAL 1.3 MG/DL (0.2-1.0); BLOOD UREA NITROGEN 49 MG/DL (7-18); CALCIUM LEVEL 9.6 MG/DL (8.5-10.1); CARBON DIOXIDE LEVEL 21 mmol/L (20-29); CHLORIDE LEVEL 93 MEQ/L (98-107); CREATININE FOR GFR 1.66 MG/DL (0.55-1.30); GLOMERULAR FILTRATION RATE 42.5 (>58); GLUCOSE, FASTING 345 MG/DL (70-100); POTASSIUM SERUM 4.4 MEQ/L (3.5-5.1); SODIUM LEVEL 131 MEQ/L (136-145)
[2021-02-14 14:28] LABS: ALBUMIN 4.1 GM/DL (3.2-5.2); TOTAL PROTEIN 7.6 GM/DL (6.4-8.2)
[2021-02-14 14:30] LABS: ACETONE/KETONE > 46.00 MG/DL (<2.81); ETHYL ALCOHOL (ETHANOL) < 0.003 % (0.000-0.010)
[2021-02-14 15:07] LABS: ALBUMIN 4.1 GM/DL (3.2-5.2); ALT/SGPT 36 U/L (12-78); BILIRUBIN,DIRECT 0.4 MG/DL (0.0-0.2); BILIRUBIN,TOTAL 1.3 MG/DL (0.2-1.0); CK-MB VALUE MASS < 1.0 NG/ML (<3.6); CPK CREATINE PHOSPHOKINASE 94 U/L (26-192); LIPASE 65 U/L (73-393); MB/CK RELATIVE INDEX 1.06 (< OR =4); THYROID STIMULATING HORMONE 0.409 uIU/ML (0.358-3.740); TOTAL PROTEIN 7.4 GM/DL (6.4-8.2); TROPONIN I < 0.02 NG/ML (< 0.10)
[2021-02-14] MEDS ORDERED: INSULIN IV RATE CHANGE DOCUMENTATION ML/HR XX SCH (15:15)
[2021-02-14] MEDS ORDERED: INSULIN REGULAR IN 0.9 % NACL 100 UNIT in IV 1 EA IV SCH ×4 (15:15→19:00)
[2021-02-14] MEDS ORDERED: ACETAMINOPHEN TAB 650MG DOSE (2X325MG) PO PRN (15:15)
--- OUTSIDE RECORDS SUMMARY | 2021-02-14 15:37 | CCD ---
Author Author [facility] Organization [facility] Address Unknown Phone Unavailable Care Team Providers Care [place] Tug Captain Name Role Phone Kimberley, Lisa Unavailable Unavailable [...] is protected by Article 27-F of the [facility] Public Health law. If you continue you may have access to information: Regarding HIV / AIDS; Provided by facilities licensed or operated by the [facility] Office of Mental Health; or Provided by the [facility] Office for People With Developmental Disabilities. If such information is present, then the following [facility] mandated warning applies: This information has been [...] Radha HENDERSONeferrer: ISMAEL CHU 05/30/2021 12:00:00 AM [facility] Ismael Chu MD: [address] [place] [address], Ph. Attender: Ismael Chu [facility] Medical 12/26/2020 12:00:00 AM EDT [place] ([facility]) Ismael Chu MD: [address] [place] [address], Ph. Attender: Ismael Chu [facility] Medical 10/31/2020 12:00:00 AM EDT [place] ([facility]) Ismael Chu MD: [address] [facility] [place] [address], Ph. Attender: Ismael Chu [facility] Medical 10/31/2020 12:00:00 AM EDT [place] ([facility]) Ismael Chu MD: [address], [place] [address], Ph. Attender: Ismael Chu [facility] Medical 10/10/2020 12:00:00 AM EDT [place] ([facility]) Ismael Chu MD: [address], [place] [address], Ph. Attender: Ismael Chu [facility] Medical 10/10/2020 12:00:00 AM EDT [place] ([facility]) Ismael Chu MD: [address], [place] [address], Ph. Attender: Ismael Chu [facility] Medical 10/10/2020 12:00:00 AM EDT [place] ([facility]) Ismael Chu MD: [address], [place] [address], Ph. Attender: Ismael Chu [facility] Medical 09/19/2020 12:00:00 AM EDT [place] ([facility]) Ismael Chu MD: [address], [place] [address], Ph. Attender: Ismael Chu [facility] Medical 09/19/2020 12:00:00 AM EDT [place] ([facility]) Ismael Chu MD: [address], [place] [address], Ph. Attender: Ismael Chu [facility] Medical 09/19/2020 12:00:00 AM EDT [place] ([facility]) Ismael Chu MD: [address], [place] [address], Ph. Attender: Ismael Chu [facility] Medical 09/19/2020 12:00:00 AM EDT [place] ([facility]) Ismael Chu MD: [address], [place] [address], Ph. Attender: Ismael Chu [facility] Medical 08/17/2020 12:00:00 AM EDT [place] ([facility]) Ismael Chu MD: [address], [place] [address], Ph. Attender: Ismael Chu [facility] Medical 08/17/2020 12:00:00 AM EDT [place] ([facility]) Ismael Chu MD: [address], [place] [address], Ph. Attender: Ismael Chu [facility] Medical 08/17/2020 12:00:00 AM EDT [place] ([facility]) Ismael Chu MD: [address], [place] [address], Ph. Attender: Ismael Chu [facility] Medical 08/17/2020 12:00:00 AM EDT [place] ([facility]) Ismael Chu MD: [address], [place] [address], Ph. Attender: Ismael Chu [facility] Medical 08/17/2020 12:00:00 AM EDT [place] ([facility]) Katie Yoo PA-C: [address], [place] [address], Ph. Attender: Katie [facility] Medical 07/10/2020 12:00:00 AM EDT [place] ([facility]) Katie Yoo PA-C: [address], [place] [address], Ph. Attender: Katie [facility] Medical 07/10/2020 12:00:00 AM EDT [place] ([facility]) Katie Yoo PA-C: [address], [place] [address], Ph. Attender: Katie [facility] Medical 07/10/2020 12:00:00 AM EDT [place] ([facility]) Katie Yoo PA-C: [address], [place] [address], Ph. Attender: Katie [facility] Medical 07/10/2020 12:00:00 AM EDT [place] ([facility]) Katie Yoo PA-C: [address], [place] [address], Ph. Attender: Katie [facility] Medical 07/10/2020 12:00:00 AM EDT [place] ([facility]) Katie Yoo PA-C: [address], [place] [address], Ph. Attender: Katie [facility] Medical 07/10/2020 12:00:00 AM EDT [place] ([facility]) Katie Yoo PA-C: [address], [place] [address], Ph. Attender: Katie [facility] Medical 02/23/2020 12:00:00 AM EST [place] ([facility]) Katie Yoo PA-C: [address], [place] [address], Ph. Attender: Katie [facility] Medical 02/23/2020 12:00:00 AM EST [place] ([facility]) Katie Yoo PA-C: [address], [place] [address], Ph. Attender: Katie [facility] Medical 02/23/2020 12:00:00 AM EST [place] ([facility]) Katie Yoo PA-C: [address], [place] [address], Ph. Attender: Katie [facility] Medical 02/23/2020 12:00:00 AM EST [place] ([facility]) Katie Yoo PA-C: [address], [place] [address], Ph. Attender: Katie [facility] Medical 02/23/2020 12:00:00 AM EST [place] ([facility]) Katie Yoo PA-C: [address], [place] [address], Ph. Attender: Katie [facility] Medical 02/23/2020 12:00:00 AM EST [place] ([facility]) Katie Yoo PA-C: [address], [place] [address], Ph. Attender: Katie [facility] Medical 02/23/2020 12:00:00 AM EST [place] ([facility]) Outpatient Attender: Abraham Lopez MD 02/22/2020 02:58:01 PM EST [facility] Medications Medication Brand Name Start [...] ondansetron 4 MG Disintegrating Oral Tablet [place] ([facility]) Acetaminophen 650 MG Oral Tablet acetami nophen 650 mg tablet Take 1 tablet 3 times a day by oral route. acetaminophen 650 mg tablet Take 1 table t 3 times a day by oral route. 1 completed sanjana taminophen 650 MG Oral Tablet [place] ([facility]) Basaglar KwikPen U-100 Insulin 10 units sc QHS completed Basaglar KwikPen U-100 Insulin [place] ([facility]) Sucralfate 1000 MG Oral Tablet [Carafate ] Carafate 1 gram tablet Take 1 tablet twice a day by oral route as directed. Carafate 1 gram tablet Take 1 tablet twice a day by oral route as directed. 1 completed sucralfate 1000 MG Oral Tablet [Carafate] [place] ([facility]) Ondansetron 4 MG Disintegrating Oral Tab let ondansetron 4 mg disintegrating tablet DISSOLVE ONE TABLET ON TONGUE EVERY 6 TO 8 HOURS NEEDED FOR NAUSEA AND VOMITING ondansetron 4 mg disintegrating tablet D ISSOLVE ONE TABLET ON TONGUE EVERY 6 TO 8 HOURS NEEDED FOR NAUSEA AND VOMITING completed ondansetron 4 MG Disintegrating Oral Tablet [place] ([facility]) Basaglar KwikPen U-100 Insulin 100 unit/mL (3 mL) subcutaneous [id number] completed 3 ML insulin glargine 100 UN T/ML Pen Injector [Basaglar] [place] ([facility]) Amoxicillin 875 MG / Clavulanate 125 MG Oral Tablet amoxicillin 875 mg-potassium clavulanate 125 mg tablet TAKE ONE TABLET BY MOUTH EVERY 12 HOURS amoxicillin 875 mg-potassium clavulanate 125 mg tablet TAKE ONE TABLET BY MOUTH EVERY 12 HOURS completed amoxici llin 875 MG / clavulanate 125 MG Oral Tablet [place] ([facility]) Omeprazole 20 MG Delayed Release Oral Ca psule omeprazole 20 mg capsule,delayed release TAKE ONE CAPSULE BY MOUTH TWICE A DAY omeprazole 20 mg capsule,delayed release TAKE ONE CAPSULE BY MOUTH TWICE A DAY completed omeprazole 20 MG Delayed Release Oral Capsule [place] ([facility]) Penicillin V Potassium 500 MG Oral Table t penicillin V potassium 500 mg tablet TAKE ONE TABLET BY MOUTH TWICE A DAY penicillin V potassium 500 mg tablet ELIAS E ONE TABLET BY MOUTH TWICE A DAY comple pau penicillin V potassium 500 MG Oral Tablet [place] ([facility]) BD Insulin Syringe Ultra-Fine 0.5 mL 31 gauge x 5/16" USE WITH INSULIN MEALS AND AT BEDTIME [id number] completed BD Insulin Syringe Ultra-Fine 0.5 mL 31 gauge x 5/16" [place] ([facility]) Basaglar KwikPen U-100 Insulin Take 5 units SC daily completed Basaglar KwikPen U-100 Insulin [place] ([facility]) Amoxicillin 875 MG Oral Tablet amoxicillin 875 mg tabl et amoxicillin 875 mg tablet completed amoxicillin 875 MG Oral Tablet [place] ([facility]) tramadol hydrochloride 50 MG Oral Tablet tramadol 50 mg tablet Take 1 tablet every 4 hours by oral route as needed. tramadol 50 mg tablet Take 1 tablet ever y 4 hours by oral route as needed. 1 comp leted tramadol hydrochloride 50 MG Oral Tablet [place] ([facility]) multivitamin Take one daily completed multivitamin [place] ([facility]) 8 HR Acetaminophen 650 MG Extended Relea se Oral Tablet Pain Relief (acetaminophen) 650 mg tablet,extended release Pain Relief (acetaminophen) 650 mg tablet,extended release completed 8 HR acetaminophen 650 MG Extended Release Oral Tablet [place] ([facility]) Ondansetron 4 MG Oral Tablet ondansetron HCl 4 mg tabl et ondansetron HCl 4 mg tablet completed ondansetron 4 M G Oral Tablet [place] ([facility]) Acetaminophen 650 MG Oral Tablet acetami nophen 650 mg tablet Take 1 tablet 3 times a day by oral route. acetaminophen 650 mg tablet Take 1 table t 3 times a day by oral route. 1 completed sanjana taminophen 650 MG Oral Tablet [place] ([facility]) Metoclopramide 10 MG Oral Tablet metoclo pramide 10 mg tablet Take 1 tablet 3 times a day by oral route as directed. metoclopramide 10 mg tablet Take 1 table t 3 times a day by oral route as directed. 1 completed metoclopramide 10 MG Oral Tablet [place] ([facility]) Ondansetron 4 MG Oral Tablet ondansetron HCl 4 mg tabl et ondansetron HCl 4 mg tablet completed ondansetron 4 M G Oral Tablet [place] ([facility]) tramadol hydrochloride 50 MG Oral Tablet tramadol 50 mg tablet Take 1 tablet every 4 hours by oral route as needed. tramadol 50 mg tablet Take 1 tablet ever y 4 hours by oral route as needed. 1 comp leted tramadol hydrochloride 50 MG Oral Tablet [place] ([facility]) Metoclopramide 10 MG Oral Tablet metoclopramide 10 mg tablet metoclopramide 10 mg tablet completed metocloprami de 10 MG Oral Tablet [place] ([facility]) Oxycodone Hydrochloride 5 MG Oral Tablet oxycodone 5 m g tablet oxycodone 5 mg tablet completed oxycodone hydro chloride 5 MG Oral Tablet [place] ([facility]) Amoxicillin 875 MG Oral Tablet amoxicillin 875 mg tabl et amoxicillin 875 mg tablet completed amoxicillin 875 MG Oral Tablet [facility]) Basaglar KwikPen U-100 Insulin 100 unit/mL (3 mL) subcutaneous [id number] completed 3 ML insulin glargine 100 UN T/ML Pen Injector [Basaglar] [place] ([facility]) pantoprazole 40 MG Delayed Release Oral Tablet pantoprazole 40 mg tablet,delayed release Take 1 tablet every day by oral route. pantoprazole 40 mg tablet,delayed release Take 1 tablet every day by oral route. 1 completed pantoprazole 40 MG Delayed Relea se Oral Tablet [place] ([facility]) Penicillin V Potassium 500 MG Oral Table t penicillin V potassium 500 mg tablet TAKE ONE TABLET BY MOUTH TWICE A DAY penicillin V potassium 500 mg tablet ELIAS E ONE TABLET BY MOUTH TWICE A DAY comple pau penicillin V potassium 500 MG Oral Tablet [place] ([facility]) Amoxicillin 875 MG / Clavulanate 125 MG Oral Tablet amoxicillin 875 mg-potassium clavulanate 125 mg tablet TAKE ONE TABLET BY MOUTH EVERY 12 HOURS amoxicillin 875 mg-potassium clavulanate 125 mg tablet TAKE ONE TABLET BY MOUTH EVERY 12 HOURS completed amoxici llin 875 MG / clavulanate 125 MG Oral Tablet [place] ([facility]) 8 HR Acetaminophen 650 MG Extended Relea se Oral Tablet Pain Relief (acetaminophen) 650 mg tablet,extended release Pain Relief (acetaminophen) 650 mg tablet,extended release completed 8 HR acetaminophen 650 MG Extended Release Oral Tablet [facility]) Prochlorperazine 25 MG Rectal Suppositor y prochlorperazine 25 mg rectal suppository INSERT ONE SUPPOSITORY RECTALLY EVERY 8 HOURS NEEDED FOR NAUSEA prochlorperazine 25 mg rectal suppository INSERT ONE SUPPOSITORY RECTALLY EVERY 8 HOURS NEEDED FOR NAUSEA completed prochlorperazine 25 MG Rectal Suppository [place] ([facility]) pantoprazole 40 MG Delayed Release Oral Tablet [Protonix] Protonix 40 mg tablet,delayed release Take 1 tablet every day by oral route. Protonix 40 mg tablet,delayed release Take 1 tablet every day by oral route. 1 completed pantoprazole 40 MG Delayed Relea se Oral Tablet [Protonix] [place] ([facility]) Prochlorperazine 25 MG Rectal Suppositor y prochlorperazine 25 mg rectal suppository INSERT ONE SUPPOSITORY RECTALLY EVERY 8 HOURS NEEDED FOR NAUSEA prochlorperazine 25 mg rectal suppository INSERT ONE SUPPOSITORY RECTALLY EVERY 8 HOURS NEEDED FOR NAUSEA completed prochlorperazine 25 MG Rectal Suppository [place] ([facility]) Ondansetron 4 MG Oral Tablet ondansetron HCl 4 mg tabl et ondansetron HCl 4 mg tablet completed ondansetron 4 M G Oral Tablet [place] ([facility]) Penicillin V Potassium 500 MG Oral Table t penicillin V potassium 500 mg tablet TAKE ONE TABLET BY MOUTH TWICE A DAY penicillin V potassium 500 mg tablet ELIAS E ONE TABLET BY MOUTH TWICE A DAY comple pau penicillin V potassium 500 MG Oral Tablet [place] ([facility]) Ondansetron 4 MG Oral Tablet ondansetron HCl 4 mg tabl et ondansetron HCl 4 mg tablet completed ondansetron 4 M G Oral Tablet [place] ([facility]) Metoclopramide 5 MG Oral Tablet metoclopramide 5 mg ta blet metoclopramide 5 mg tablet completed metoclopramide 5 MG Oral Tablet [place] ([facility]) Ondansetron 4 MG Oral Tablet ondansetron HCl 4 mg tabl et ondansetron HCl 4 mg tablet completed ondansetron 4 M G Oral Tablet [place] ([facility]) Oxycodone Hydrochloride 5 MG Oral Tablet oxycodone 5 m g tablet oxycodone 5 mg tablet completed oxycodone hydro chloride 5 MG Oral Tablet [place] ([facility]) Metoclopramide 10 MG Oral Tablet metoclopramide 10 mg tablet metoclopramide 10 mg tablet completed metocloprami de 10 MG Oral Tablet [place] ([facility]) Isopropyl Alcohol 0.7 ML/ML Medicated Pad Alcohol Prep Pads USE DIRECTED Alcohol Prep Pads USE DIRECTED comp leted isopropyl alcohol 0.7 ML/ML Medicated Pad [place] ([facility]) Regular Insulin, Human 100 UNT/ML [...] 100 UNT/ML Injectable Solution [Humulin R] [place] ([facility]) Omeprazole 20 MG Delayed Release Oral Ca psule omeprazole 20 mg capsule,delayed release TAKE ONE CAPSULE BY MOUTH TWICE A DAY omeprazole 20 mg capsule,delayed release TAKE ONE CAPSULE BY MOUTH TWICE A DAY completed omeprazole 20 MG Delayed Release Oral Capsule [place] ([facility]) Levemir FlexTouch U-100 Insuln Pen; give 5 units daily completed Levemir [place] ([facility]) OneTouch Verio Flex Meter USE DIRECTED TO TEST BLOOD SUGAR [id number] completed OneTouch Verio Flex Meter AT [facility] ([facility]) Prochlorperazine 25 MG Rectal Suppositor y prochlorperazine 25 mg rectal suppository INSERT ONE SUPPOSITORY RECTALLY EVERY 8 HOURS NEEDED FOR NAUSEA prochlorperazine 25 mg rectal suppository INSERT ONE SUPPOSITORY RECTALLY EVERY 8 HOURS NEEDED FOR NAUSEA completed prochlorperazine 25 MG Rectal Suppository [place] ([facility]) Ondansetron 4 MG Disintegrating Oral Tab let ondansetron 4 mg disintegrating tablet DISSOLVE ONE TABLET ON TONGUE EVERY 6 TO 8 HOURS NEEDED FOR NAUSEA AND VOMITING ondansetron 4 mg disintegrating tablet D ISSOLVE ONE TABLET ON TONGUE EVERY 6 TO 8 HOURS NEEDED FOR NAUSEA AND VOMITING completed ondansetron 4 MG Disintegrating Oral Tablet [place] ([facility]) Penicillin V Potassium 500 MG Oral Table t penicillin V potassium 500 mg tablet TAKE ONE TABLET BY MOUTH TWICE A DAY penicillin V potassium 500 mg tablet ELIAS E ONE TABLET BY MOUTH TWICE A DAY comple pau penicillin V potassium 500 MG Oral Tablet [place] ([facility]) Ondansetron 4 MG Oral Tablet ondansetron HCl 4 mg tabl et ondansetron HCl 4 mg tablet completed ondansetron 4 M G Oral Tablet [place] ([facility]) Basaglar KwikPen U-100 Insulin 100 unit/mL (3 mL) subcutaneous [id number] completed 3 ML insulin glargine 100 UN T/ML Pen Injector [Basaglar] [place] ([facility]) Basaglar KwikPen U-100 Insulin 100 unit/mL (3 mL) subcutaneous [id number] completed 3 ML insulin glargine 100 UN T/ML Pen Injector [Basaglar] [place] ([facility]) Omeprazole 20 MG Delayed Release Oral Ca psule omeprazole 20 mg capsule,delayed release TAKE ONE CAPSULE BY MOUTH TWICE A DAY omeprazole 20 mg capsule,delayed release TAKE ONE CAPSULE BY MOUTH TWICE A DAY completed omeprazole 20 MG Delayed Release Oral Capsule [place] ([facility]) pantoprazole 40 MG Delayed Release Oral Tablet pantoprazole 40 mg tablet,delayed release Take 1 tablet every day by oral route. pantoprazole 40 mg tablet,delayed release Take 1 tablet every day by oral route. 1 completed pantoprazole 40 MG Delayed Relea se Oral Tablet [place] ([facility]) Acetaminophen 650 MG Oral Tablet acetami nophen 650 mg tablet Take 1 tablet 3 times a day by oral route. acetaminophen 650 mg tablet Take 1 table t 3 times a day by oral route. 1 completed sanjana taminophen 650 MG Oral Tablet [place] ([facility]) Prochlorperazine 25 MG Rectal Suppositor y prochlorperazine 25 mg rectal suppository INSERT ONE SUPPOSITORY RECTALLY EVERY 8 HOURS NEEDED FOR NAUSEA prochlorperazine 25 mg rectal suppository INSERT ONE SUPPOSITORY RECTALLY EVERY 8 HOURS NEEDED FOR NAUSEA completed prochlorperazine 25 MG Rectal Suppository [place] ([facility]) Prochlorperazine 25 MG Rectal Suppositor y prochlorperazine 25 mg rectal suppository INSERT ONE SUPPOSITORY RECTALLY EVERY 8 HOURS NEEDED FOR NAUSEA prochlorperazine 25 mg rectal suppository INSERT ONE SUPPOSITORY RECTALLY EVERY 8 HOURS NEEDED FOR NAUSEA completed prochlorperazine 25 MG Rectal Suppository [place] ([facility]) Penicillin V Potassium 500 MG Oral Table t penicillin V potassium 500 mg tablet TAKE ONE TABLET BY MOUTH TWICE A DAY penicillin V potassium 500 mg tablet ELIAS E ONE TABLET BY MOUTH TWICE A DAY comple pau penicillin V potassium 500 MG Oral Tablet [place] ([facility]) Levemir FlexTouch U-100 Insuln Pen; give 5 units daily completed Levemir [place] ([facility]) Basaglar KwikPen U-100 Insulin 100 unit/mL (3 mL) subcutaneous [id number] completed 3 ML insulin glargine 100 UN T/ML Pen Injector [Basaglar] [place] ([facility]) Prochlorperazine 25 MG Rectal Suppositor y prochlorperazine 25 mg rectal suppository INSERT ONE SUPPOSITORY RECTALLY EVERY 8 HOURS NEEDED FOR NAUSEA prochlorperazine 25 mg rectal suppository INSERT ONE SUPPOSITORY RECTALLY EVERY 8 HOURS NEEDED FOR NAUSEA completed prochlorperazine 25 MG Rectal Suppository [place] ([facility]) Metoclopramide 5 MG Oral Tablet metoclop ramide 5 mg tablet TAKE ONE TABLET BY MOUTH EVERY DAY BEFORE MEALS AND AT BEDTIME metoclopramide 5 mg tablet TAKE ONE TABLET BY MOUTH EVERY DAY BEFORE MEALS AND AT BEDTIME completed metoclopramide 5 MG Oral Tablet [place] ([facility]) Metoclopramide 5 MG Oral Tablet metoclopramide 5 mg ta blet metoclopramide 5 mg tablet completed metoclopramide 5 MG Oral Tablet [place] ([facility]) Ondansetron 4 MG Disintegrating Oral Tab let ondansetron 4 mg disintegrating tablet DISSOLVE ONE TABLET ON TONGUE EVERY 6 TO 8 HOURS NEEDED FOR NAUSEA AND VOMITING ondansetron 4 mg disintegrating tablet D ISSOLVE ONE TABLET ON TONGUE EVERY 6 TO 8 HOURS NEEDED FOR NAUSEA AND VOMITING completed ondansetron 4 MG Disintegrating Oral Tablet [place] ([facility]) Metoclopramide 10 MG Oral Tablet metoclopramide 10 mg tablet metoclopramide 10 mg tablet completed metocloprami de 10 MG Oral Tablet [place] ([facility]) 8 HR Acetaminophen 650 MG Extended Relea se Oral Tablet Pain Relief (acetaminophen) 650 mg tablet,extended release Pain Relief (acetaminophen) 650 mg tablet,extended release completed 8 HR acetaminophen 650 MG Extended Release Oral Tablet [place] ([facility]) pantoprazole 40 MG Delayed Release Oral Tablet pantoprazole 40 mg tablet,delayed release Take 1 tablet every day by oral route. pantoprazole 40 mg tablet,delayed release Take 1 tablet every day by oral route. 1 completed pantoprazole 40 MG Delayed Relea se Oral Tablet [place] ([facility]) Prochlorperazine 25 MG Rectal Suppositor y prochlorperazine 25 mg rectal suppository INSERT ONE SUPPOSITORY RECTALLY EVERY 8 HOURS NEEDED FOR NAUSEA prochlorperazine 25 mg rectal suppository INSERT ONE SUPPOSITORY RECTALLY EVERY 8 HOURS NEEDED FOR NAUSEA completed prochlorperazine 25 MG Rectal Suppository [place] ([facility]) Amoxicillin 875 MG Oral Tablet amoxicillin 875 mg tabl et amoxicillin 875 mg tablet completed amoxicillin 875 MG Oral Tablet [place] ([facility]) Basaglar KwikPen U-100 Insulin 10 units sc QHS completed Basaglar KwikPen U-100 Insulin [place] ([facility]) Amoxicillin 875 MG / Clavulanate 125 MG Oral Tablet amoxicillin 875 mg-potassium clavulanate 125 mg tablet TAKE ONE TABLET BY MOUTH EVERY 12 HOURS amoxicillin 875 mg-potassium clavulanate 125 mg tablet TAKE ONE TABLET BY MOUTH EVERY 12 HOURS completed amoxici llin 875 MG / clavulanate 125 MG Oral Tablet [place] ([facility]) Sucralfate 1000 MG Oral Tablet [Carafate ] Carafate 1 gram tablet Take 1 tablet twice a day by oral route as directed. Carafate 1 gram tablet Take 1 tablet twice a day by oral route as directed. 1 completed sucralfate 1000 MG Oral Tablet [Carafate] [place] ([facility]) OneTouch Delica Plus Lancet 33 gauge [id number] completed OneTouch Delica Plus Lancet 33 gauge [place] ([facility]) Acetaminophen 650 MG Oral Tablet acetami nophen 650 mg tablet Take 1 tablet 3 times a day by oral route. acetaminophen 650 mg tablet Take 1 table t 3 times a day by oral route. 1 completed sanjana taminophen 650 MG Oral Tablet [place] ([facility]) tramadol hydrochloride 50 MG Oral Tablet tramadol 50 mg tablet Take 1 tablet every 4 hours by oral route as needed. tramadol 50 mg tablet Take 1 tablet ever y 4 hours by oral route as needed. 1 comp leted tramadol hydrochloride 50 MG Oral Tablet [place] ([facility]) BD Ultra-Fine Sonya Pen Needle 32 gauge x 5/32" USE UNDER THE SKIN DAILY DIRECTED [id number] completed BD Ult ra-Fine Sonya Pen Needle 32 gauge x 5/32" [place] ([facility]) Regular Insulin, Human 100 UNT/ML [...] 100 UNT/ML Injectable Solution [Humulin R] [place] ([facility]) Omeprazole 20 MG Delayed Release Oral Ca psule omeprazole 20 mg capsule,delayed release TAKE ONE CAPSULE BY MOUTH TWICE A DAY omeprazole 20 mg capsule,delayed release TAKE ONE CAPSULE BY MOUTH TWICE A DAY completed omeprazole 20 MG Delayed Release Oral Capsule [place] ([facility]) Ondansetron 4 MG Disintegrating Oral Tab let ondansetron 4 mg disintegrating tablet DISSOLVE ONE TABLET ON TONGUE EVERY 6 TO 8 HOURS NEEDED FOR NAUSEA AND VOMITING ondansetron 4 mg disintegrating tablet D ISSOLVE ONE TABLET ON TONGUE EVERY 6 TO 8 HOURS NEEDED FOR NAUSEA AND VOMITING completed ondansetron 4 MG Disintegrating Oral Tablet [place] ([facility]) Amitriptyline Hydrochloride 10 MG Oral T ablet amitriptyline 10 mg tablet Take 2 tablets every day by oral route at bedtime. amitriptyline 10 mg tablet Take 2 tablets every day by oral route at bedtime. 2 completed amitriptyline hydrochloride 10 MG Oral Tablet [place] ([facility]) Oxycodone Hydrochloride 5 MG Oral Tablet oxycodone 5 m g tablet oxycodone 5 mg tablet completed oxycodone hydro chloride 5 MG Oral Tablet [place] ([facility]) tramadol hydrochloride 50 MG Oral Tablet tramadol 50 mg tablet Take 1 tablet every 4 hours by oral route as needed. tramadol 50 mg tablet Take 1 tablet ever y 4 hours by oral route as needed. 1 compl eted tramadol hydrochloride 50 MG Oral Tablet [place] ([facility]) Metoclopramide 5 MG Oral Tablet metoclopramide 5 mg ta blet metoclopramide 5 mg tablet completed metoclopramide 5 MG Oral Tablet [place] ([facility]) Amoxicillin 875 MG Oral Tablet amoxicillin 875 mg tabl et amoxicillin 875 mg tablet completed amoxicillin 875 MG Oral Tablet [place] ([facility]) Amoxicillin 875 MG Oral Tablet amoxicillin 875 mg tabl et amoxicillin 875 mg tablet completed amoxicillin 875 MG Oral Tablet [place] ([facility]) Metoclopramide 5 MG Oral Tablet metoclopramide 5 mg ta blet metoclopramide 5 mg tablet completed metoclopramide 5 MG Oral Tablet [place] ([facility]) Oxycodone Hydrochloride 5 MG Oral Tablet oxycodone 5 m g tablet oxycodone 5 mg tablet completed oxycodone hydro chloride 5 MG Oral Tablet [place] ([facility]) Metoclopramide 10 MG Oral Tablet metoclopramide 10 mg tablet metoclopramide 10 mg tablet completed metocloprami de 10 MG Oral Tablet [place] ([facility]) Amitriptyline Hydrochloride 10 MG Oral T ablet amitriptyline 10 mg tablet Take 2 tablets every day by oral route at bedtime. amitriptyline 10 mg tablet Take 2 tablets every day by oral route at bedtime. 2 completed amitriptyline hydrochloride 10 MG Oral Tablet [place] ([facility]) Omeprazole 20 MG Delayed Release Oral Ca psule omeprazole 20 mg capsule,delayed release TAKE ONE CAPSULE BY MOUTH TWICE A DAY omeprazole 20 mg capsule,delayed release TAKE ONE CAPSULE BY MOUTH TWICE A DAY completed omeprazole 20 MG Delayed Release Oral Capsule [place] ([facility]) Penicillin V Potassium 500 MG Oral Table t penicillin V potassium 500 mg tablet TAKE ONE TABLET BY MOUTH TWICE A DAY penicillin V potassium 500 mg tablet ELIAS E ONE TABLET BY MOUTH TWICE A DAY comple pau penicillin V potassium 500 MG Oral Tablet [place] ([facility]) 8 HR Acetaminophen 650 MG Extended Relea se Oral Tablet Pain Relief (acetaminophen) 650 mg tablet,extended release Pain Relief (acetaminophen) 650 mg tablet,extended release completed 8 HR acetaminophen 650 MG Extended Release Oral Tablet [place] ([facility]) insulin human, isophane 70 UNT/ML [...] regular, human 30 UNT/ML Injectable Suspension [Novolin] [place] ([facility]) Ondansetron 4 MG Oral Tablet ondansetron HCl 4 mg tabl et ondansetron HCl 4 mg tablet completed ondansetron 4 M G Oral Tablet [place] ([facility]) Acetaminophen 650 MG Oral Tablet acetami nophen 650 mg tablet Take 1 tablet 3 times a day by oral route. acetaminophen 650 mg tablet Take 1 table t 3 times a day by oral route. 1 completed sanjana taminophen 650 MG Oral Tablet [place] ([facility]) Basaglar KwikPen U-100 Insulin 10 units sc QHS completed Basaglar KwikPen U-100 Insulin [place] ([facility]) tramadol hydrochloride 50 MG Oral Tablet tramadol 50 mg tablet Take 1 tablet every 4 hours by oral route as needed. tramadol 50 mg tablet Take 1 tablet ever y 4 hours by oral route as needed. 1 comp leted tramadol hydrochloride 50 MG Oral Tablet [place] ([facility]) Metoclopramide 5 MG Oral Tablet metoclopramide 5 mg ta blet metoclopramide 5 mg tablet completed metoclopramide 5 MG Oral Tablet [place] ([facility]) Oxycodone Hydrochloride 5 MG Oral Tablet oxycodone 5 m g tablet oxycodone 5 mg tablet completed oxycodone hydro chloride 5 MG Oral Tablet [place] ([facility]) Amoxicillin 875 MG / Clavulanate 125 MG Oral Tablet amoxicillin 875 mg-potassium clavulanate 125 mg tablet TAKE ONE TABLET BY MOUTH EVERY 12 HOURS amoxicillin 875 mg-potassium clavulanate 125 mg tablet TAKE ONE TABLET BY MOUTH EVERY 12 HOURS completed amoxici llin 875 MG / clavulanate 125 MG Oral Tablet [place] ([facility]) Sucralfate 1000 MG Oral Tablet [Carafate ] Carafate 1 gram tablet Take 1 tablet twice a day by oral route as directed. Carafate 1 gram tablet Take 1 tablet twice a day by oral route as directed. 1 completed sucralfate 1000 MG Oral Tablet [Carafate] [place] ([facility]) Omeprazole 20 MG Delayed Release Oral Ca psule omeprazole 20 mg capsule,delayed release TAKE ONE CAPSULE BY MOUTH TWICE A DAY omeprazole 20 mg capsule,delayed release TAKE ONE CAPSULE BY MOUTH TWICE A DAY completed omeprazole 20 MG Delayed Release Oral Capsule [place] ([facility]) Sucralfate 1000 MG Oral Tablet [Carafate ] Carafate 1 gram tablet Take 1 tablet twice a day by oral route as directed. Carafate 1 gram tablet Take 1 tablet twice a day by oral route as directed. 1 completed sucralfate 1000 MG Oral Tablet [Carafate] [place] ([facility]) Oxycodone Hydrochloride 5 MG Oral Tablet oxycodone 5 m g tablet oxycodone 5 mg tablet completed oxycodone hydro chloride 5 MG Oral Tablet [place] ([facility]) insulin human, isophane 70 UNT/ML / [...] regular, human 30 UNT/ML Injectable Suspension [Novolin] [place] ([facility]) Regular Insulin, Human 100 UNT/ML Inject [...] 100 UNT/ML Injectable Solution [Humulin R] [place] ([facility]) Penicillin V Potassium 500 MG Oral Table t penicillin V potassium 500 mg tablet TAKE ONE TABLET BY MOUTH TWICE A DAY penicillin V potassium 500 mg tablet ELIAS E ONE TABLET BY MOUTH TWICE A DAY comple pau penicillin V potassium 500 MG Oral Tablet [place] ([facility]) Omeprazole 20 MG Delayed Release Oral Ca psule omeprazole 20 mg capsule,delayed release TAKE ONE CAPSULE BY MOUTH TWICE A DAY omeprazole 20 mg capsule,delayed release TAKE ONE CAPSULE BY MOUTH TWICE A DAY completed omeprazole 20 MG Delayed Release Oral Capsule [place] ([facility]) Ondansetron 4 MG Disintegrating Oral Tab let ondansetron 4 mg disintegrating tablet DISSOLVE ONE TABLET ON TONGUE EVERY 6 TO 8 HOURS NEEDED FOR NAUSEA AND VOMITING ondansetron 4 mg disintegrating tablet D ISSOLVE ONE TABLET ON TONGUE EVERY 6 TO 8 HOURS NEEDED FOR NAUSEA AND VOMITING completed ondansetron 4 MG Disintegrating Oral Tablet [place] ([facility]) Sucralfate 1000 MG Oral Tablet [Carafate ] Carafate 1 gram tablet Take 1 tablet twice a day by oral route as directed. Carafate 1 gram tablet Take 1 tablet twice a day by oral route as directed. 1 completed sucralfate 1000 MG Oral Tablet [Carafate] [place] ([facility]) Amoxicillin 875 MG Oral Tablet amoxicillin 875 mg tabl et amoxicillin 875 mg tablet completed amoxicillin 875 MG Oral Tablet [place] ([facility]) 8 HR Acetaminophen 650 MG Extended Relea se Oral Tablet Pain Relief (acetaminophen) 650 mg tablet,extended release Pain Relief (acetaminophen) 650 mg tablet,extended release completed 8 HR acetaminophen 650 MG Extended Release Oral Tablet [place] ([facility]) Docusate Sodium 100 MG Oral Capsule docu sate sodium 100 mg capsule Take 2 capsules every day by oral route as needed. docusate sodium 100 mg capsule Take 2 capsules every day by oral route as needed. 2 capsule(s) completed docusate sodium 100 MG Oral Capsule ATHVanessa ORDOÑEZ ([facility]) BD Ultra-Fine Short Pen Needle 31 gauge x 5/16" USE DIRECTED WITH AMANDA ONCE DAILY AT BEDTIME [id number] completed BD Ultra-Fine Short Pen Needle 31 gauge x 5/16" [place] ([facility]) BD Insulin Syringe Ultra-Fine 1 mL 31 gauge x 5/16" USE DIRECTED [id number] completed BD Insulin Syringe Ult ra-Fine 1 mL 31 gauge x 5/16" [place] ([facility]) Oxycodone Hydrochloride 5 MG Oral Tablet oxycodone 5 m g tablet oxycodone 5 mg tablet completed oxycodone hydro chloride 5 MG Oral Tablet [place] ([facility]) Insurance Providers Payer name Policy type / Coverage type Policy ID Covered democrat ID Covered democrat's relationship to manning Policy Manning Plan Information Medicaid S [id number] S [id number] [facility] P [id number] S [id number] Medicaid S [id number] S [id number] [facility] P [id number] S [id number] [facility] P [id number] S [id number] [facility] PLAN [facility] [id number] SP [id number] SELF PAY ONLY [id number] SP [id number] SELF PAY UNAVAILABLE SP UNAVAILA BLE MEDICAID GME W [id number] S [id number] J [facility] COMM PLAN FHP W [id number] S [id number] MEDICAID W UNAVAILABLE S UNAVAILA BLE SELF PAY P [id number] S P UNAVAILABLE UNAVAILA BLE [facility] PLAN [facility] [id number] SP [id number] BLUE [employer] PLAN [id number] SP [id number] [facility] BLUE [id number] SP [id number] [facility] PLAN [facility] [id number] SP [id number] [facility]) O [id number] S [id number] MEDICAID [id number] SP [id number] [facility] P UNAVAILABLE S UNAVAILABLE Medicaid S [id number] S [id number] Problems, Conditions, and Diagnoses Code Display Name Description Problem Type Effective Dates Data Source(s) 221982344 Chronic kidney disease stage 3A Chronic Kidney D isease Stage 3a Problem 10/31/2020 12:00:00 AM EDT [place] ([facility]) [id number] Cannabis abuse Cannabis Abuse Problem 10/31/2020 12:00: 00 AM EDT [place] ([facility]) [id number] Chronic kidney disease stage 3A Chronic Kidney D isease Stage 3a Problem 10/31/2020 12:00:00 AM EDT [place] ([facility]) [id number] Cannabis abuse Cannabis Abuse Problem 10/31/2020 12:00: 00 AM EDT [place] ([facility]) [id number] History of SARS-CoV-2 History of SARS-CoV-2 Prob chari 10/09/2020 12:00:00 AM EDT [place] ([facility]) [id number] History of SARS-CoV-2 History of SARS-CoV-2 Prob chari 10/09/2020 12:00:00 AM EDT [place] ([facility]) [id number] History of SARS-CoV-2 History of SARS-CoV-2 Prob chari 10/09/2020 12:00:00 AM EDT [place] ([facility]) [id number] Calorie restricted diet Calorie Restricted Diet Proble m 07/10/2020 12:00:00 AM EDT [place] ([facility]) [id number] Gastroparesis due to type 1 diabetes jonah litus Gastroparesis Due to Type 1 Diabetes Mellitus Problem 07/10/2020 12:00:00 AM EDT [place] ( [facility]) [id number] Gastroesophageal reflux disease Gastroesophageal Reflux Disease Problem 07/10/2020 12:00:00 AM EDT [place] ([facility]) [id number] Anemia of chronic disease Anemia of Chronic Disease Pr oblem 07/10/2020 12:00:00 AM EDT [place] ([facility]) [id number] Type 1 diabetes mellitus Type 1 Diabetes Mellitus Prob chari 07/10/2020 12:00:00 AM EDT [place] ([facility]) [id number] Calorie restricted diet Calorie Restricted Diet Proble m 07/10/2020 12:00:00 AM EDT [place] ([facility]) [id number] Gastroparesis due to type 1 diabetes jonah litus Gastroparesis Due to Type 1 Diabetes Mellitus Problem 07/10/2020 12:00:00 AM EDT [place] ( [facility]) [id number] Gastroesophageal reflux disease Gastroesophageal Reflux Disease Problem 07/10/2020 12:00:00 AM EDT [place] ([facility]) [id number] Anemia of chronic disease Anemia of Chronic Disease Pr oblem 07/10/2020 12:00:00 AM EDT [place] ([facility]) [id number] Type 1 diabetes mellitus Type 1 Diabetes Mellitus Prob chari 07/10/2020 12:00:00 AM EDT [place] ([facility]) [id number] Calorie restricted diet Calorie Restricted Diet Proble m 07/10/2020 12:00:00 AM EDT [place] ([facility]) [id number] Gastroparesis due to type 1 diabetes jonah litus Gastroparesis Due to Type 1 Diabetes Mellitus Problem 07/10/2020 12:00:00 AM EDT [place] ( [facility]) [id number] Gastroesophageal reflux disease Gastroesophageal Reflux Disease Problem 07/10/2020 12:00:00 AM EDT [place] ([facility]) [id number] Anemia of chronic disease Anemia of Chronic Disease Pr oblem 07/10/2020 12:00:00 AM EDT [place] ([facility]) [id number] Type 1 diabetes mellitus Type 1 Diabetes Mellitus Prob chari 07/10/2020 12:00:00 AM EDT [place] ([facility]) [id number] Calorie restricted diet Calorie Restricted Diet Proble m 07/10/2020 12:00:00 AM EDT [place] ([facility]) [id number] Gastroparesis due to type 1 diabetes jonah litus Gastroparesis Due to Type 1 Diabetes Mellitus Problem 07/10/2020 12:00:00 AM EDT [place] ( [facility]) [id number] Gastroesophageal reflux disease Gastroesophageal Reflux Disease Problem 07/10/2020 12:00:00 AM EDT [place] ([facility]) [id number] Anemia of chronic disease Anemia of Chronic Disease Pr oblem 07/10/2020 12:00:00 AM EDT [place] ([facility]) [id number] Type 1 diabetes mellitus Type 1 Diabetes Mellitus Prob chari 07/10/2020 12:00:00 AM EDT [place] ([facility]) [id number] Calorie restricted diet Calorie Restricted Diet Proble m 07/10/2020 12:00:00 AM EDT [place] ([facility]) [id number] Gastroparesis due to type 1 diabetes jonah litus Gastroparesis Due to Type 1 Diabetes Mellitus Problem 07/10/2020 12:00:00 AM EDT [place] ( [facility]) [id number] Gastroesophageal reflux disease Gastroesophageal Reflux Disease Problem 07/10/2020 12:00:00 AM EDT [place] ([facility]) [id number] Anemia of chronic disease Anemia of Chronic Disease Pr oblem 07/10/2020 12:00:00 AM EDT [place] ([facility]) [id number] Type 1 diabetes mellitus Type 1 Diabetes Mellitus Prob chari 07/10/2020 12:00:00 AM EDT [place] ([facility]) [id number] Calorie restricted diet Calorie Restricted Diet Proble 07/10/2020 12:00:00 AM EDT [place] ([facility]) [id number] Gastroparesis due to type 1 diabetes jonah litus Gastroparesis Due to Type 1 Diabetes Mellitus Problem 07/10/2020 12:00:00 AM EDT [place] ( [facility]) [id number] Gastroesophageal reflux disease Gastroesophageal Reflux Disease Problem 07/10/2020 12:00:00 AM EDT [place] ([facility]) [id number] Anemia of chronic disease Anemia of Chronic Disease Pr oblem 07/10/2020 12:00:00 AM EDT [place] ([facility]) [id number] Type 1 diabetes mellitus Type 1 Diabetes Mellitus Prob chari 07/10/2020 12:00:00 AM EDT [place] ([facility]) [id number] Clinical finding Clinical Finding Problem 018 12:00:00 AM EDT - 07/10/2020 12:00:00 AM EDT [place] ([facility]) [id number] Clinical finding Clinical Finding Problem 018 12:00:00 AM EDT - 07/10/2020 12:00:00 AM EDT [place] ([facility]) [id number] Clinical finding Clinical Finding Problem 018 12:00:00 AM EDT - 07/10/2020 12:00:00 AM EDT [place] ([facility]) [id number] Clinical finding Clinical Finding Problem 018 12:00:00 AM EDT - 07/10/2020 12:00:00 AM EDT [place] ([facility]) [id number] Clinical finding Clinical Finding Problem 018 12:00:00 AM EDT - 07/10/2020 12:00:00 AM EDT [place] ([facility]) [id number] Clinical finding Clinical Finding Problem 018 12:00:00 AM EDT - 07/10/2020 12:00:00 AM EDT [place] ([facility]) Surgeries/Procedures No Information Results ID Date Data Source [id number] 10/23/2020 02:21:00 PM EDT [facility] Name Value Range Interpretation Code Description Data Kaye rce(s) Supporting Document(s) SARS-CoV-2 (COVID 19) NEGATIVE - SARS-CoV-2 (COVID19) [facility] This lab was ordered by [facility] a nd reported by [facility]. ID Date Data Source [id number] 10/13/2020 09:56:00 AM EDT [facility] Name Value Range Interpretation Code Description Data Kaye rce(s) Supporting Document(s) SARS coronavirus 2 RNA [Presence] in Res piratory specimen by SULY with probe detection NEGATIVE [facility] This lab was ordered by [facility] a nd reported by [facility]. ID Date Data Source [id number] 10/10/2020 10:19:00 AM EDT [facility]) Name Value Range Interpretation Code Description Data Kaye rce(s) Supporting Document(s) Hemoglobin A1c/Hemoglobin.total in Blood 9.2 %_of_total_HGB <5.7 Above high normal Hemoglobin a1C [place] ([facility]) ID Date Data Source [id number] 10/10/2020 10:19:00 AM EDT [facility]) Name Value Range Interpretation Code Description Data Kaye rce(s) Supporting Document(s) Troponin I.cardiac [Mass/volume] in Serum or Plasma 16 NG/L < or = 47 Troponin I [place] ([facility]) ID Date Data Source [id number] 10/10/2020 10:19:00 AM EDT [place] ([facility]) Name Value Range Interpretation Code Description Data Kaye rce(s) Supporting Document(s) Cholesterol [Mass/volume] in Serum or Plasma 214 mg/dL <200 Above high normal Cholesterol, Total [place] ([facility]) Cholesterol in HDL [Mass/volume] in Serum or Plasma 67 mg/dL > or = 50 HDL Cholesterol [place] ([facility]) Triglyceride [Mass/volume] in Serum or Plasma 59 mg/dL <150 Triglycerides [place] ([facility]) Cholesterol in LDL [Mass/volume] in Serum or Plasma by calculation 132 mg/dL_(calc) Above high normal LDL-cholesterol [place] ([facility]) Cholesterol.total/Cholesterol in HDL [Mass Ratio] in Serum o r Plasma 3.2 (calc) <5.0 Chol/hdlc Ratio [place] ([facility]) Cholesterol non HDL [Mass/volume] in Serum or Plasma 147 mg/dL_( calc) <130 Above high normal Non HDL Cholesterol [place] ([facility]) ID Date Data Source [id number] 10/10/2020 10:19:00 AM EDT [facility]) Name Value Range Interpretation Code Description Data Kaye rce(s) Supporting Document(s) Hemoglobin A1c/Hemoglobin.total in Blood 9.2 %_of_total_HGB <5.7 Above high normal Hemoglobin a1C [place] ([facility]) ID Date Data Source [id number] 10/10/2020 10:19[facility] Name Value Range Interpretation Code Description Data Kaye rce(s) Supporting Document(s) Troponin I.cardiac [Mass/volume] in Serum or Plasma 16 NG/L < or = 47 Troponin I [place] ([facility]) ID Date Data Source [id number] 10/10/2020 10:19:00 AM EDT [place] ([facility]) Name Value Range Interpretation Code Description Data Kaye rce(s) Supporting Document(s) Cholesterol [Mass/volume] in Serum or Plasma 214 mg/dL <200 Above high normal Cholesterol, Total [place] ([facility]) Cholesterol in HDL [Mass/volume] in Serum or Plasma 67 mg/dL > or = 50 HDL Cholesterol [place] ([facility]) Triglyceride [Mass/volume] in Serum or Plasma 59 mg/dL <150 Triglycerides [place] ([facility]) Cholesterol in LDL [Mass/volume] in Serum or Plasma by calculation 132 mg/dL_(calc) Above high normal LDL-cholesterol [place] ([facility]) Cholesterol.total/Cholesterol in HDL [Mass Ratio] in Serum o r Plasma 3.2 (calc) <5.0 Chol/hdlc Ratio [place] ([facility]) Cholesterol non HDL [Mass/volume] in Serum or Plasma 147 mg/dL_( calc) <130 Above high normal Non HDL Cholesterol [place] ([facility]) ID Date Data Source [id number] 09/16/2020 04:31:00 PM EDT [facility] Name Value Range Interpretation Code Description Data Kaye rce(s) Supporting Document(s) SARS coronavirus 2 RNA [Presence] in Res piratory specimen by SULY with probe detection POSITIVE [facility] This lab was ordered by [facility] a nd reported by [facility]. ID Date Data Source [id number] 07/02/2020 01:32:00 AM EDT [facility] Name Value Range Interpretation Code Description Data Kaye rce(s) Supporting Document(s) SARS coronavirus 2 RNA [Presence] in Res piratory specimen by SULY with probe detection NEGATIVE [facility] This lab was ordered by [facility] a nd reported by [facility]. ID Date Data Source [id number] 06/25/2020 04:56:00 PM EDT [place] ([facility]) Name Value Range Interpretation Code Description Data Kaye rce(s) Supporting Document(s) Hemoglobin A1c/Hemoglobin.total in Blood 8.0 % Hemoglobin a1C [place] ([facility]) estimated average glucose 183 mg/dL 60-110 Above high norm al Estimated Average Glucose [place] ([facility]) ID Date Data Source [id number] 06/25/2020 04:56:00 PM EDT [place] ([facility]) Name Value Range Interpretation Code Description Data Kaye rce(s) Supporting Document(s) lipase 59 U/L 73-393 Below low normal Lipase [place] ( [facility]) ID Date Data Source [id number] 06/25/2020 04:56:00 PM EDT [place] ([facility]) Name Value Range Interpretation Code Description Data Kaye rce(s) Supporting Document(s) glucose, fasting 172 mg/dL 70-100 Above high normal Glucose, Fas ting [place] ([facility]) blood urea nitrogen 32 mg/dL 7-18 Above high normal Blood Ure a Nitrogen [place] ([facility]) creatinine for GFR 1.24 mg/dL 0.55-1.30 Creatinine for GF R [place] ([facility]) glomerular filtration rate >58 Glomerula r Filtration Rate [place] ([facility]) sodium level 133 mEq/L 136-145 Below low normal Sodium Level [place] ([facility]) potassium serum 4.0 mEq/L 3.5-5.1 Potassium Serum [facility] NA ([facility]) chloride level 98 mEq/L 98-107 Chloride Level [facility] ([facility]) carbon dioxide level 25 mEq/L 21-32 Carbon Dioxide Level [place] ([facility]) anion gap 10 mEq/L 8-16 Anion Gap [facility] ([facility] [facility]) calcium level 9.3 mg/dL 8.5-10.1 Calcium Level [place] ( [facility]) ID Date Data Source [id number] 06/25/2020 04:56:00 PM EDT [place] ([facility]) Name Value Range Interpretation Code Description Data Kaye rce(s) Supporting Document(s) AST/SGOT 14 U/L 7-37 AST/SGOT [place] ([facility]) ALT/SGPT 15 U/L 12-78 ALT/SGPT [place] ([facility]) alkaline phosphatase 71 U/L 45-117 Alkaline Phosph atase [place] ([facility]) bilirubin,total 1.0 mg/dL 0.2-1.0 Bilirubin,total [place]HE NA ([facility]) bilirubin,direct 0.3 mg/dL 0.0-0.2 Above high normal Bilirubin,di rect [place] ([facility]) total protein 7.6 gm/dL 6.4-8.2 Total Protein [place] ( [facility]) albumin 4.1 gm/dL 3.2-5.2 Albumin [place] ([facility]) albumin/globulin ratio 1.2-2.2 Albumin/globu gerard Ratio [place] ([facility]) ID Date Data Source [id number] 06/25/2020 04:56:00 PM EDT [place] ([facility]) Name Value Range Interpretation Code Description Data Kaye rce(s) Supporting Document(s) lactic acid sepsis protocol 1.4 mmol/L 0.4-2.0 Lactic A emmanuelle Sepsis Protocol [place] ([facility]) ID Date Data Source [id number] 06/25/2020 04:56:00 PM EDT [place] ([facility]) Name Value Range Interpretation Code Description Data Kaye rce(s) Supporting Document(s) white blood count 6.7 10 4.0-10.0 White Blood Count [place] ([facility]) red blood count 4.14 10 4.00-5.40 Red Blood Count [place] NA ([facility]) hemoglobin 11.8 g/dL 12.0-15.5 Below low normal Hemoglobin [place] ( [facility]) hematocrit 35.6 % 36.0-47.0 Below low normal Hematocrit [place] ( [facility]) mean corpuscular volume 86.0 fL 80.0-96.0 Mean Corpusc ular Volume [place] ([facility]) mean corpuscular hemoglobin 28.5 pg 27.0-33.0 Mean Cor puscular Hemoglobin [place] ([facility]) mean corpuscular HGB conc 33.1 g/dL 32.0-36.5 Mean Corpu scular HGB Conc [place] ([facility]) red cell distribution width 15.1 % 11.5-14.5 Above high no rmal Red Cell Distribution Width [place] ([facility]) platelet count, automated 253 10 150-450 Platelet C ount, Automated [place] ([facility]) neutrophils % 72.6 % 36.0-66.0 Above high normal Neutrophils % A [place] ([facility]) lymph % 18.9 % 24.0-44.0 Below low normal Lymph % [place] ( [facility]) mono % 7.9 % 2.0-8.0 [place] % [place] ([facility]) eos % 0.1 % 0.0-3.0 Eos % [place] ([facility]) baso % 0.4 % 0.0-1.0 Baso % [place] ([facility]) immature granulocyte % 0.1 % 0-3.0 Immature Gran ulocyte % [place] ([facility]) nucleated red blood cell % 0.0 % 0-0 Nucleated Red Blood Cell % [place] ([facility]) neutrophils # 4.9 10 1.5-8.5 Neutrophils # [place] ( [facility]) lymph # 1.3 10 1.5-5.0 Below low normal Lymph # [place] ( [facility]) mono # 0.5 10 0.0-0.8 [place] # [place] ([facility]) eos # 0.0 10 0.0-0.5 Eos # [place] ([facility]) baso # 0.0 10 0.0-0.2 Baso # [place] ([facility]) ID Date Data Source [id number] 06/25/2020 04:56:00 PM EDT [place] ([facility]) Name Value Range Interpretation Code Description Data Kaye rce(s) Supporting Document(s) Hemoglobin A1c/Hemoglobin.total in Blood 8.0 % Hemoglobin a1C [place] ([facility]) estimated average glucose 183 mg/dL 60-110 Above high norm al Estimated Average Glucose [place] ([facility]) ID Date Data Source [id number] 06/25/2020 04:56:00 PM EDT [place] ([facility]) Name Value Range Interpretation Code Description Data Kaye rce(s) Supporting Document(s) lipase 59 U/L 73-393 Below low normal Lipase [place] ( [facility]) ID Date Data Source [id number] 06/25/2020 04:56:00 PM EDT [place] ([facility]) Name Value Range Interpretation Code Description Data Kaye rce(s) Supporting Document(s) glucose, fasting 172 mg/dL 70-100 Above high normal Glucose, Fas ting [place] ([facility]) blood urea nitrogen 32 mg/dL 7-18 Above high normal Blood Ure a Nitrogen [place] ([facility]) creatinine for GFR 1.24 mg/dL 0.55-1.30 Creatinine for GF R [place] ([facility]) glomerular filtration rate >58 Glomerula r Filtration Rate [place] ([facility]) sodium level 133 mEq/L 136-145 Below low normal Sodium Level [place] NA ([facility]) potassium serum 4.0 mEq/L 3.5-5.1 Potassium Serum [place] ([facility]) chloride level 98 mEq/L 98-107 Chloride Level [place] ([facility]) carbon dioxide level 25 mEq/L 21-32 Carbon Dioxide Level [place] ([facility]) anion gap 10 mEq/L 8-16 Anion Gap [place] ([facility]) calcium level 9.3 mg/dL 8.5-10.1 Calcium Level [place] ( [facility]) ID Date Data Source [id number] 06/25/2020 04:56:00 PM EDT [place] ([facility]) Name Value Range Interpretation Code Description Data Kaye rce(s) Supporting Document(s) AST/SGOT 14 U/L 7-37 AST/SGOT [place] ([facility]) ALT/SGPT 15 U/L 12-78 ALT/SGPT [place] ([facility]) alkaline phosphatase 71 U/L 45-117 Alkaline Phosph atase [place] ([facility]) bilirubin,total 1.0 mg/dL 0.2-1.0 Bilirubin,total ATHE NA ([facility]) bilirubin,direct 0.3 mg/dL 0.0-0.2 Above high normal Bilirubin,di rect [place] ([facility]) total protein 7.6 gm/dL 6.4-8.2 Total Protein [place] ( [facility]) albumin 4.1 gm/dL 3.2-5.2 Albumin [place] ([facility]) albumin/globulin ratio 1.2-2.2 Albumin/globu gerard Ratio [place] ([facility]) ID Date Data Source [id number] 06/25/2020 04:56:00 PM EDT [place] ([facility]) Name Value Range Interpretation Code Description Data Kaye rce(s) Supporting Document(s) lactic acid sepsis protocol 1.4 mmol/L 0.4-2.0 Lactic A emmanuelle Sepsis Protocol [place] ([facility]) ID Date Data Source [id number] 06/25/2020 04:56:00 PM EDT [place] ([facility]) Name Value Range Interpretation Code Description Data Kaye rce(s) Supporting Document(s) white blood count 6.7 10 4.0-10.0 White Blood Count [place] ([facility]) red blood count 4.14 10 4.00-5.40 Red Blood Count [place] ([facility]) hemoglobin 11.8 g/dL 12.0-15.5 Below low normal Hemoglobin [place] ( [facility]) hematocrit 35.6 % 36.0-47.0 Below low normal Hematocrit [place] ( [facility]) mean corpuscular volume 86.0 fL 80.0-96.0 Mean Corpusc ular Volume [place] ([facility]) mean corpuscular hemoglobin 28.5 pg 27.0-33.0 Mean Cor puscular Hemoglobin [place] ([facility]) mean corpuscular HGB conc 33.1 g/dL 32.0-36.5 Mean Corpu scular HGB Conc [place] ([facility]) red cell distribution width 15.1 % 11.5-14.5 Above high no rmal Red Cell Distribution Width [place] ([facility]) platelet count, automated 253 10 150-450 Platelet C ount, Automated [place] ([facility]) neutrophils % 72.6 % 36.0-66.0 Above high normal Neutrophils % A [place] ([facility]) lymph % 18.9 % 24.0-44.0 Below low normal Lymph % [place] ( [facility]) mono % 7.9 % 2.0-8.0 [place] % [place] ([facility]) eos % 0.1 % 0.0-3.0 Eos % [place] ([facility]) baso % 0.4 % 0.0-1.0 Baso % [place] ([facility]) immature granulocyte % 0.1 % 0-3.0 Immature Gran ulocyte % [place] ([facility]) nucleated red blood cell % 0.0 % 0-0 Nucleated Red Blood Cell % [place] ([facility]) neutrophils # 4.9 10 1.5-8.5 Neutrophils # [place] ( [facility]) lymph # 1.3 10 1.5-5.0 Below low normal Lymph # [place] ( [facility]) mono # 0.5 10 0.0-0.8 [place] # [place] ([facility]) eos # 0.0 10 0.0-0.5 Eos # [place] ([facility]) baso # 0.0 10 0.0-0.2 Baso # [place] ([facility]) ID Date Data Source [id number] 06/25/2020 04:56:00 PM EDT [facility]) Name Value Range Interpretation Code Description Data Kaye rce(s) Supporting Document(s) Hemoglobin A1c/Hemoglobin.total in Blood 8.0 % Hemoglobin a1C [place] ([facility]) estimated average glucose 183 mg/dL 60-110 Above high norm al Estimated Average Glucose [facility]) ID Date Data Source [id number] 06/25/2020 04:56:00 PM EDT [facility]) Name Value Range Interpretation Code Description Data Kaye rce(s) Supporting Document(s) lipase 59 U/L 73-393 Below low normal Lipase [facility]) ID Date Data Source [id number] 06/25/2020 04:56:00 PM EDT [facility]) Name Value Range Interpretation Code Description Data Kaye rce(s) Supporting Document(s) glucose, fasting 172 mg/dL 70-100 Above high normal Glucose, Fas ting [place] ([facility]) blood urea nitrogen 32 mg/dL 7-18 Above high normal Blood Ure a Nitrogen [place] ([facility]) creatinine for GFR 1.24 mg/dL 0.55-1.30 Creatinine for GF R [place] ([facility]) glomerular filtration rate >58 Glomerula r Filtration Rate [place] ([facility]) sodium level 133 mEq/L 136-145 Below low normal Sodium Level [place] ([facility]) potassium serum 4.0 mEq/L 3.5-5.1 Potassium Serum [place] ([facility]) chloride level 98 mEq/L 98-107 Chloride Level [place] ([facility]) carbon dioxide level 25 mEq/L 21-32 Carbon Dioxide Level [place] ([facility]) anion gap 10 mEq/L 8-16 Anion Gap [place] ([facility]) calcium level 9.3 mg/dL 8.5-10.1 Calcium Level [place] ( [facility]) ID Date Data Source [id number] 06/25/2020 04:56:00 PM EDT [place] ([facility]) Name Value Range Interpretation Code Description Data Kaye rce(s) Supporting Document(s) AST/SGOT 14 U/L 7-37 AST/SGOT [place] ([facility]) ALT/SGPT 15 U/L 12-78 ALT/SGPT [place] ([facility]) alkaline phosphatase 71 U/L 45-117 Alkaline Phosph atase [place] ([facility]) bilirubin,total 1.0 mg/dL 0.2-1.0 Bilirubin,total [place] ([facility]) bilirubin,direct 0.3 mg/dL 0.0-0.2 Above high normal Bilirubin,di rect [place] ([facility]) total protein 7.6 gm/dL 6.4-8.2 Total Protein [place] ( [facility]) albumin 4.1 gm/dL 3.2-5.2 Albumin [place] ([facility]) albumin/globulin ratio 1.2-2.2 Albumin/globu gerard Ratio [place] ([facility]) ID Date Data Source [id number] 06/25/2020 04:56:00 PM EDT [place] ([facility]) Name Value Range Interpretation Code Description Data Kaye rce(s) Supporting Document(s) lactic acid sepsis protocol 1.4 mmol/L 0.4-2.0 Lactic A emmanuelle Sepsis Protocol [place] ([facility]) ID Date Data Source [id number] 06/25/2020 04:56:00 PM EDT [place] ([facility]) Name Value Range Interpretation Code Description Data Kaye rce(s) Supporting Document(s) white blood count 6.7 10 4.0-10.0 White Blood Count [place] ([facility]) red blood count 4.14 10 4.00-5.40 Red Blood Count [place] ([facility]) hemoglobin 11.8 g/dL 12.0-15.5 Below low normal Hemoglobin [place] ( [facility]) hematocrit 35.6 % 36.0-47.0 Below low normal Hematocrit [place] ( [facility]) mean corpuscular volume 86.0 fL 80.0-96.0 Mean Corpusc ular Volume [place] ([facility]) mean corpuscular hemoglobin 28.5 pg 27.0-33.0 Mean Cor puscular Hemoglobin [place] ([facility]) mean corpuscular HGB conc 33.1 g/dL 32.0-36.5 Mean Corpu scular HGB Conc [place] ([facility]) red cell distribution width 15.1 % 11.5-14.5 Above high no rmal Red Cell Distribution Width [place] ([facility]) platelet count, automated 253 10 150-450 Platelet C ount, Automated [place] ([facility]) neutrophils % 72.6 % 36.0-66.0 Above high normal Neutrophils % A [place] ([facility]) lymph % 18.9 % 24.0-44.0 Below low normal Lymph % [place] ( [facility]) mono % 7.9 % 2.0-8.0 [place] % [place] ([facility]) eos % 0.1 % 0.0-3.0 Eos % [place] ([facility]) baso % 0.4 % 0.0-1.0 Baso % [place] ([facility]) immature granulocyte % 0.1 % 0-3.0 Immature Gran ulocyte % [place] ([facility]) nucleated red blood cell % 0.0 % 0-0 Nucleated Red Blood Cell % [place] ([facility]) neutrophils # 4.9 10 1.5-8.5 Neutrophils # [place] ( [facility]) lymph # 1.3 10 1.5-5.0 Below low normal Lymph # [place] ( [facility]) mono # 0.5 10 0.0-0.8 [place] # [place] ([facility]) eos # 0.0 10 0.0-0.5 Eos # [place] ([facility]) baso # 0.0 10 0.0-0.2 Baso # [place] ([facility]) ID Date Data Source [id number] 06/25/2020 04:56:00 PM EDT [place] ([facility]) Name Value Range Interpretation Code Description Data Kaye rce(s) Supporting Document(s) Hemoglobin A1c/Hemoglobin.total in Blood 8.0 % Hemoglobin a1C [place] ([facility]) estimated average glucose 183 mg/dL 60-110 Above high norm al Estimated Average Glucose [place] ([facility]) ID Date Data Source [id number] 06/25/2020 04:56:00 PM EDT [place] ([facility]) Name Value Range Interpretation Code Description Data Kaye rce(s) Supporting Document(s) lipase 59 U/L 73-393 Below low normal Lipase [place] ( [facility]) ID Date Data Source [id number] 06/25/2020 04:56:00 PM EDT [place] ([facility]) Name Value Range Interpretation Code Description Data Kaye rce(s) Supporting Document(s) glucose, fasting 172 mg/dL 70-100 Above high normal Glucose, Fas ting [place] ([facility]) blood urea nitrogen 32 mg/dL 7-18 Above high normal Blood Ure a Nitrogen [place] ([facility]) creatinine for GFR 1.24 mg/dL 0.55-1.30 Creatinine for GF R [place] ([facility]) glomerular filtration rate >58 Glomerula r Filtration Rate [place] ([facility]) sodium level 133 mEq/L 136-145 Below low normal Sodium Level [place] ([facility]) potassium serum 4.0 mEq/L 3.5-5.1 Potassium Serum [place] ([facility]) chloride level 98 mEq/L 98-107 Chloride Level [place] ([facility]) carbon dioxide level 25 mEq/L 21-32 Carbon Dioxide Level [place] ([facility]) anion gap 10 mEq/L 8-16 Anion Gap [place] ([facility]) calcium level 9.3 mg/dL 8.5-10.1 Calcium Level [place] ( [facility]) ID Date Data Source [id number] 06/25/2020 04:56:00 PM EDT [place] ([facility]) Name Value Range Interpretation Code Description Data Kaye rce(s) Supporting Document(s) AST/SGOT 14 U/L 7-37 AST/SGOT [place] ([facility]) ALT/SGPT 15 U/L 12-78 ALT/SGPT [place] ([facility]) alkaline phosphatase 71 U/L 45-117 Alkaline Phosph atase [place] ([facility]) bilirubin,total 1.0 mg/dL 0.2-1.0 Bilirubin,total [place] ([facility]) bilirubin,direct 0.3 mg/dL 0.0-0.2 Above high normal Bilirubin,di rect [place] ([facility]) total protein 7.6 gm/dL 6.4-8.2 Total Protein [place] ( [facility]) albumin 4.1 gm/dL 3.2-5.2 Albumin [place] ([facility]) albumin/globulin ratio 1.2-2.2 Albumin/globu gerard Ratio [place] ([facility]) ID Date Data Source [id number] 06/25/2020 04:56:00 PM EDT [place] ([facility]) Name Value Range Interpretation Code Description Data Kaye rce(s) Supporting Document(s) lactic acid sepsis protocol 1.4 mmol/L 0.4-2.0 Lactic A emmanuelle Sepsis Protocol [place] ([facility]) ID Date Data Source [id number] 06/25/2020 04:56:00 PM EDT [place] ([facility]) Name Value Range Interpretation Code Description Data Kaye rce(s) Supporting Document(s) white blood count 6.7 10 4.0-10.0 White Blood Count [place] ([facility]) red blood count 4.14 10 4.00-5.40 Red Blood Count [place] ([facility]) hemoglobin 11.8 g/dL 12.0-15.5 Below low normal Hemoglobin [place] ( [facility]) hematocrit 35.6 % 36.0-47.0 Below low normal Hematocrit [place] ( [facility]) mean corpuscular volume 86.0 fL 80.0-96.0 Mean Corpusc ular Volume [place] ([facility]) mean corpuscular hemoglobin 28.5 pg 27.0-33.0 Mean Cor puscular Hemoglobin [place] ([facility]) mean corpuscular HGB conc 33.1 g/dL 32.0-36.5 Mean Corpu scular HGB Conc [place] ([facility]) red cell distribution width 15.1 % 11.5-14.5 Above high no rmal Red Cell Distribution Width [place] ([facility]) platelet count, automated 253 10 150-450 Platelet C ount, Automated [place] ([facility]) neutrophils % 72.6 % 36.0-66.0 Above high normal Neutrophils % A [place] ([facility]) lymph % 18.9 % 24.0-44.0 Below low normal Lymph % [place] ( [facility]) mono % 7.9 % 2.0-8.0 [place] % [place] ([facility]) eos % 0.1 % 0.0-3.0 Eos % [place] ([facility]) baso % 0.4 % 0.0-1.0 Baso % [place] ([facility]) immature granulocyte % 0.1 % 0-3.0 Immature Gran ulocyte % [place] ([facility]) nucleated red blood cell % 0.0 % 0-0 Nucleated Red Blood Cell % [place] ([facility]) neutrophils # 4.9 10 1.5-8.5 Neutrophils # [place] ( [facility]) lymph # 1.3 10 1.5-5.0 Below low normal Lymph # [place] ( [facility]) mono # 0.5 10 0.0-0.8 [place] # [place] ([facility]) eos # 0.0 10 0.0-0.5 Eos # [place] ([facility]) baso # 0.0 10 0.0-0.2 Baso # [place] ([facility]) ID Date Data Source [id number] 06/25/2020 04:56:00 PM EDT [place] ([facility]) Name Value Range Interpretation Code Description Data Kaye rce(s) Supporting Document(s) Hemoglobin A1c/Hemoglobin.total in Blood 8.0 % Hemoglobin a1C [place] ([facility]) estimated average glucose 183 mg/dL 60-110 Above high norm al Estimated Average Glucose [place] ([facility]) ID Date Data Source [id number] 06/25/2020 04:56:00 PM EDT [place] ([facility]) Name Value Range Interpretation Code Description Data Kaye rce(s) Supporting Document(s) lipase 59 U/L 73-393 Below low normal Lipase [place] ( [facility]) ID Date Data Source [id number] 06/25/2020 04:56:00 PM EDT [place] ([facility]) Name Value Range Interpretation Code Description Data Kaye rce(s) Supporting Document(s) glucose, fasting 172 mg/dL 70-100 Above high normal Glucose, Fas ting [place] ([facility]) blood urea nitrogen 32 mg/dL 7-18 Above high normal Blood Ure a Nitrogen [place] ([facility]) creatinine for GFR 1.24 mg/dL 0.55-1.30 Creatinine for GF R [place] ([facility]) glomerular filtration rate >58 Glomerula r Filtration Rate [place] ([facility]) sodium level 133 mEq/L 136-145 Below low normal Sodium Level [place] ([facility]) potassium serum 4.0 mEq/L 3.5-5.1 Potassium Serum ATHE NA ([facility]) chloride level 98 mEq/L 98-107 Chloride Level [place] ([facility]) carbon dioxide level 25 mEq/L 21-32 Carbon Dioxide Level [place] ([facility]) anion gap 10 mEq/L 8-16 Anion Gap [place] ([facility]) calcium level 9.3 mg/dL 8.5-10.1 Calcium Level [place] ( [facility]) ID Date Data Source [id number] 06/25/2020 04:56:00 PM EDT [place] ([facility]) Name Value Range Interpretation Code Description Data Kaye rce(s) Supporting Document(s) AST/SGOT 14 U/L 7-37 AST/SGOT [place] ([facility]) ALT/SGPT 15 U/L 12-78 ALT/SGPT [place] ([facility]) alkaline phosphatase 71 U/L 45-117 Alkaline Phosph atase [place] ([facility]) bilirubin,total 1.0 mg/dL 0.2-1.0 Bilirubin,total ATHE NA ([facility]) bilirubin,direct 0.3 mg/dL 0.0-0.2 Above high normal Bilirubin,di rect [place] ([facility]) total protein 7.6 gm/dL 6.4-8.2 Total Protein [place] ( [facility]) albumin 4.1 gm/dL 3.2-5.2 Albumin [place] ([facility]) albumin/globulin ratio 1.2-2.2 Albumin/globu gerard Ratio [place] ([facility]) ID Date Data Source [id number] 06/25/2020 04:56:00 PM EDT [place] ([facility]) Name Value Range Interpretation Code Description Data Kaye rce(s) Supporting Document(s) lactic acid sepsis protocol 1.4 mmol/L 0.4-2.0 Lactic A emmanuelle Sepsis Protocol [place] ([facility]) ID Date Data Source [id number] 06/25/2020 04:56:00 PM EDT [place] ([facility]) Name Value Range Interpretation Code Description Data Kaye rce(s) Supporting Document(s) white blood count 6.7 10 4.0-10.0 White Blood Count [place] ([facility]) red blood count 4.14 10 4.00-5.40 Red Blood Count [place] ([facility]) hemoglobin 11.8 g/dL 12.0-15.5 Below low normal Hemoglobin ROM[place] ( [facility]) hematocrit 35.6 % 36.0-47.0 Below low normal Hematocrit ROM[place] ( [facility]) mean corpuscular volume 86.0 fL 80.0-96.0 Mean Corpusc ular Volume ROMAN ([facility]) mean corpuscular hemoglobin 28.5 pg 27.0-33.0 Mean Cor puscular Hemoglobin ROM[place] ([facility]) mean corpuscular HGB conc 33.1 g/dL 32.0-36.5 Mean Corpu scular HGB Conc [place] ([facility]) red cell distribution width 15.1 % 11.5-14.5 Above high no rmal Red Cell Distribution Width ROM[place] ([facility]) platelet count, automated 253 10 150-450 Platelet C ount, Automated [place] ([facility]) neutrophils % 72.6 % 36.0-66.0 Above high normal Neutrophils % A THENA ([facility]) lymph % 18.9 % 24.0-44.0 Below low normal Lymph % ROMAN ( [facility]) mono % 7.9 % 2.0-8.0 [place] % ROMAN ([facility]) eos % 0.1 % 0.0-3.0 Eos % [place] ([facility]) baso % 0.4 % 0.0-1.0 Baso % ROMAN ([facility]) immature granulocyte % 0.1 % 0-3.0 Immature Gran ulocyte % ROM[place] ([facility]) nucleated red blood cell % 0.0 % 0-0 Nucleated Red Blood Cell % ROMAN ([facility]) neutrophils # 4.9 10 1.5-8.5 Neutrophils # ROMAN ( [facility]) lymph # 1.3 10 1.5-5.0 Below low normal Lymph # ROMAN ( [facility]) mono # 0.5 10 0.0-0.8 [place] # ROMAN ([facility]) eos # 0.0 10 0.0-0.5 Eos # ROM[place] ([facility]) baso # 0.0 10 0.0-0.2 Baso # ROM[place] ([facility]) ID Date Data Source [id number] 06/25/2020 04:56:00 PM EDT [place] ([facility]) Name Value Range Interpretation Code Description Data Kaye rce(s) Supporting Document(s) Hemoglobin A1c/Hemoglobin.total in Blood 8.0 % Hemoglobin a1C [place] ([facility]) estimated average glucose 183 mg/dL 60-110 Above high norm al Estimated Average Glucose [place] ([facility]) ID Date Data Source [id number] 06/25/2020 04:56:00 PM EDT [place] ([facility]) Name Value Range Interpretation Code Description Data Kaye rce(s) Supporting Document(s) lipase 59 U/L 73-393 Below low normal Lipase [place] ( [facility]) ID Date Data Source [id number] 06/25/2020 04:56:00 PM EDT [place] ([facility]) Name Value Range Interpretation Code Description Data Kaye rce(s) Supporting Document(s) glucose, fasting 172 mg/dL 70-100 Above high normal Glucose, Fas ting ROMAN ([facility]) blood urea nitrogen 32 mg/dL 7-18 Above high normal Blood Ure a Nitrogen [place] ([facility]) creatinine for GFR 1.24 mg/dL 0.55-1.30 Creatinine for GF R [place] ([facility]) glomerular filtration rate >58 Glomerula r Filtration Rate [place] ([facility]) sodium level 133 mEq/L 136-145 Below low normal Sodium Level [place] ([facility]) potassium serum 4.0 mEq/L 3.5-5.1 Potassium Serum ATHE NA ([facility]) chloride level 98 mEq/L 98-107 Chloride Level [place] ([facility]) carbon dioxide level 25 mEq/L 21-32 Carbon Dioxide Level [place] ([facility]) anion gap 10 mEq/L 8-16 Anion Gap [place] ([facility]) calcium level 9.3 mg/dL 8.5-10.1 Calcium Level ROM[place] ( [facility]) ID Date Data Source [id number] 06/25/2020 04:56:00 PM EDT [place] ([facility]) Name Value Range Interpretation Code Description Data Kaye rce(s) Supporting Document(s) AST/SGOT 14 U/L 7-37 AST/SGOT [place] ([facility]) ALT/SGPT 15 U/L 12-78 ALT/SGPT [place] ([facility]) alkaline phosphatase 71 U/L 45-117 Alkaline Phosph atase [place] ([facility]) bilirubin,total 1.0 mg/dL 0.2-1.0 Bilirubin,total [place] ([facility]) bilirubin,direct 0.3 mg/dL 0.0-0.2 Above high normal Bilirubin,di rect [place] ([facility]) total protein 7.6 gm/dL 6.4-8.2 Total Protein [place] ( [facility]) albumin 4.1 gm/dL 3.2-5.2 Albumin [place] ([facility]) albumin/globulin ratio 1.2-2.2 Albumin/globu gerard Ratio [place] ([facility]) ID Date Data Source [id number] 06/25/2020 04:56:00 PM EDT [place] ([facility]) Name Value Range Interpretation Code Description Data Kaye rce(s) Supporting Document(s) lactic acid sepsis protocol 1.4 mmol/L 0.4-2.0 Lactic A emmanuelle Sepsis Protocol [place] ([facility]) ID Date Data Source [id number] 06/25/2020 04:56:00 PM EDT [place] ([facility]) Name Value Range Interpretation Code Description Data Kaye rce(s) Supporting Document(s) white blood count 6.7 10 4.0-10.0 White Blood Count [place] ([facility]) red blood count 4.14 10 4.00-5.40 Red Blood Count [place] ([facility]) hemoglobin 11.8 g/dL 12.0-15.5 Below low normal Hemoglobin [place] ( [facility]) hematocrit 35.6 % 36.0-47.0 Below low normal Hematocrit [place] ( [facility]) mean corpuscular volume 86.0 fL 80.0-96.0 Mean Corpusc ular Volume [place] ([facility]) mean corpuscular hemoglobin 28.5 pg 27.0-33.0 Mean Cor puscular Hemoglobin [place] ([facility]) mean corpuscular HGB conc 33.1 g/dL 32.0-36.5 Mean Corpu scular HGB Conc [place] ([facility]) red cell distribution width 15.1 % 11.5-14.5 Above high no rmal Red Cell Distribution Width [place] ([facility]) platelet count, automated 253 10 150-450 Platelet C ount, Automated [place] ([facility]) neutrophils % 72.6 % 36.0-66.0 Above high normal Neutrophils % A THENA ([facility]) lymph % 18.9 % 24.0-44.0 Below low normal Lymph % [place] ( [facility]) mono % 7.9 % 2.0-8.0 [place] % [place] ([facility]) eos % 0.1 % 0.0-3.0 Eos % [place] ([facility]) baso % 0.4 % 0.0-1.0 Baso % [place] ([facility]) immature granulocyte % 0.1 % 0-3.0 Immature Gran ulocyte % [place] ([facility]) nucleated red blood cell % 0.0 % 0-0 Nucleated Red Blood Cell % [place] ([facility]) neutrophils # 4.9 10 1.5-8.5 Neutrophils # [place] ( [facility]) lymph # 1.3 10 1.5-5.0 Below low normal Lymph # [place] ( [facility]) mono # 0.5 10 0.0-0.8 [place] # [place] ([facility]) eos # 0.0 10 0.0-0.5 Eos # [place] ([facility]) baso # 0.0 10 0.0-0.2 Baso # [place] ([facility]) ID Date Data Source [id number] 05/30/2020 02:18:00 PM EST [place] ([facility]) Name Value Range Interpretation Code Description Data Kaye rce(s) Supporting Document(s) bedside glucose 347 mg/dL 70-105 Above high normal Bedside Gluco se [place] ([facility]) ID Date Data Source [id number] 05/30/2020 02:18:00 PM EST [place] ([facility]) Name Value Range Interpretation Code Description Data Kaye rce(s) Supporting Document(s) bedside glucose 347 mg/dL 70-105 Above high normal Bedside Gluco se [place] ([facility]) ID Date Data Source [id number] 05/30/2020 02:18:00 PM EST [place] ([facility]) Name Value Range Interpretation Code Description Data Kaye rce(s) Supporting Document(s) bedside glucose 347 mg/dL 70-105 Above high normal Bedside Gluco se [place] ([facility]) ID Date Data Source [id number] 05/30/2020 02:18:00 PM EST [place] ([facility]) Name Value Range Interpretation Code Description Data Kaye rce(s) Supporting Document(s) bedside glucose 347 mg/dL 70-105 Above high normal Bedside Gluco se [place] ([facility]) ID Date Data Source [id number] 05/30/2020 02:18:00 PM EST [place] ([facility]) Name Value Range Interpretation Code Description Data Kaye rce(s) Supporting Document(s) bedside glucose 347 mg/dL 70-105 Above high normal Bedside Gluco se [place] ([facility]) ID Date Data Source [id number] 05/30/2020 02:18:00 PM EST [place] ([facility]) Name Value Range Interpretation Code Description Data Kaye rce(s) Supporting Document(s) bedside glucose 347 mg/dL 70-105 Above high normal [facility] Date Data Source [id number] 05/30/2020 09:45:00 AM EST [place] ([facility]) Name Value Range Interpretation Code Description Data Kaye rce(s) Supporting Document(s) bedside glucose 218 mg/dL 70-105 Above high normal Bedside Gluco se [place] ([facility]) ID Date Data Source [id number] 05/30/2020 09:45:00 AM [facility] Name Value Range Interpretation Code Description Data Kaye rce(s) Supporting Document(s) bedside glucose 218 mg/dL 70-105 Above high normal Bedside Gluco se [place] ([facility]) ID Date Data Source [id number] 05/30/2020 09:45:00 AM [facility] Name Value Range Interpretation Code Description Data Kaye rce(s) Supporting Document(s) bedside glucose 218 mg/dL 70-105 Above high normal [facility] ID Date Data Source [id number] 05/30/2020 09:45:00 AM EST [place] ([facility]) Name Value Range Interpretation Code Description Data Kaye rce(s) Supporting Document(s) bedside glucose 218 mg/dL 70-105 Above high normal Bedside Gluco se [place] ([facility]) ID Date Data Source [id number] 05/30/2020 09:45:00 AM EST [place] ([facility]) Name Value Range Interpretation Code Description Data Kaye rce(s) Supporting Document(s) bedside glucose 218 mg/dL 70-105 Above high normal Bedside Gluco se [place] ([facility]) ID Date Data Source [id number] 05/30/2020 09:45:00 AM EST [place] ([facility]) Name Value Range Interpretation Code Description Data Kaye rce(s) Supporting Document(s) bedside glucose 218 mg/dL 70-105 Above high normal Bedside Gluco se [place] ([facility]) ID Date Data Source [id number] 05/19/2020 05:04:00 PM EST [place] ([facility]) Name Value Range Interpretation Code Description Data Kaye rce(s) Supporting Document(s) bedside glucose 203 mg/dL 70-105 Above high normal Bedside Gluco se [place] ([facility]) ID Date Data Source [id number] 05/19/2020 05:04:00 PM EST [place] ([facility]) Name Value Range Interpretation Code Description Data Kaye rce(s) Supporting Document(s) bedside glucose 203 mg/dL 70-105 Above high normal [facility] ID Date Data Source [id number] 05/19/2020 05:04:00 PM EST [place] ([facility]) Name Value Range Interpretation Code Description Data Kaye rce(s) Supporting Document(s) bedside glucose 203 mg/dL 70-105 Above high normal Bedside Gluco se [place] ([facility]) ID Date Data Source [id number] 05/19/2020 05:04:00 PM EST [place] ([facility]) Name Value Range Interpretation Code Description Data Kaye rce(s) Supporting Document(s) bedside glucose 203 mg/dL 70-105 Above high normal Bedside Gluco se [place] ([facility]) ID Date Data Source [id number] 05/19/2020 05:04:00 PM EST [place] ([facility]) Name Value Range Interpretation Code Description Data Kaye rce(s) Supporting Document(s) bedside glucose 203 mg/dL 70-105 Above high normal Bedside Gluco se [place] ([facility]) ID Date Data Source [id number] 05/19/2020 05:04:00 PM EST [place] ([facility]) Name Value Range Interpretation Code Description Data Kaye rce(s) Supporting Document(s) bedside glucose 203 mg/dL 70-105 Above high normal Bedside Gluco se [place] ([facility]) ID Date Data Source [id number] 05/19/2020 03:32:00 PM EST [place] ([facility]) Name Value Range Interpretation Code Description Data Kaye rce(s) Supporting Document(s) istat lactate 0.4-2.0 Istat Lactate [place] ( [facility]) ID Date Data Source [id number] 05/19/2020 03:32:00 PM EST [place] ([facility]) Name Value Range Interpretation Code Description Data Kaye rce(s) Supporting Document(s) istat lactate 0.4-2.0 Istat Lactate [place] ( [facility]) ID Date Data Source [id number] 05/19/2020 03:32:00 PM EST [place] ([facility]) Name Value Range Interpretation Code Description Data Kaye rce(s) Supporting Document(s) istat lactate 0.4-2.0 Istat Lactate [place] ( [facility]) ID Date Data Source [id number] 05/19/2020 03:32:00 PM EST [place] ([facility]) Name Value Range Interpretation Code Description Data Kaye rce(s) Supporting Document(s) istat lactate 0.4-2.0 Istat Lactate [place] ( [facility]) ID Date Data Source [id number] 05/19/2020 03:32:00 PM EST [place] ([facility]) Name Value Range Interpretation Code Description Data Kaye rce(s) Supporting Document(s) istat lactate 0.4-2.0 Istat Lactate [place] ( [facility]) ID Date Data Source [id number] 05/19/2020 03:32:00 PM EST [place] ([facility]) Name Value Range Interpretation Code Description Data Kaye rce(s) Supporting Document(s) istat lactate 0.4-2.0 Istat Lactate [place] ( [facility]) ID Date Data Source [id number] 05/19/2020 03:12:00 PM EST [place] ([facility]) Name Value Range Interpretation Code Description Data Kaye rce(s) Supporting Document(s) istat troponin 0.00 NG/mL 0.00-0.08 Istat Troponin [place] ([facility]) ID Date Data Source [id number] 05/19/2020 03:12:00 PM EST [place] ([facility]) Name Value Range Interpretation Code Description Data Kaye rce(s) Supporting Document(s) bedside glucose 97 mg/dL 70-105 Bedside Glucose [place] ([facility]) ID Date Data Source [id number] 05/19/2020 03:12:00 PM EST [place] ([facility]) Name Value Range Interpretation Code Description Data Kaye rce(s) Supporting Document(s) istat troponin 0.00 NG/mL 0.00-0.08 Istat Troponin [place] ([facility]) ID Date Data Source [id number] 05/19/2020 03:12:00 PM EST [place] ([facility]) Name Value Range Interpretation Code Description Data Kaye rce(s) Supporting Document(s) bedside glucose 97 mg/dL 70-105 Bedside Glucose [place] NA ([facility]) ID Date Data Source [id number] 05/19/2020 03:12:00 PM EST [place] ([facility]) Name Value Range Interpretation Code Description Data Kaye rce(s) Supporting Document(s) istat troponin 0.00 NG/mL 0.00-0.08 Istat Troponin [place] ([facility]) ID Date Data Source [id number] 05/19/2020 03:12:00 PM EST [place] ([facility]) Name Value Range Interpretation Code Description Data Kaye rce(s) Supporting Document(s) bedside glucose 97 mg/dL 70-105 Bedside Glucose [place] ([facility]) ID Date Data Source [id number] 05/19/2020 03:12:00 PM EST [place] ([facility]) Name Value Range Interpretation Code Description Data Kaye rce(s) Supporting Document(s) istat troponin 0.00 NG/mL 0.00-0.08 Istat Troponin [place] ([facility]) ID Date Data Source [id number] 05/19/2020 03:12:00 PM EST [place] ([facility]) Name Value Range Interpretation Code Description Data Kaye rce(s) Supporting Document(s) bedside glucose 97 mg/dL 70-105 Bedside Glucose [place] ([facility]) ID Date Data Source [id number] 05/19/2020 03:12:00 PM EST [place] ([facility]) Name Value Range Interpretation Code Description Data Kaye rce(s) Supporting Document(s) istat troponin 0.00 NG/mL 0.00-0.08 Istat Troponin [place] ([facility]) ID Date Data Source [id number] 05/19/2020 03:12:00 PM EST [place] ([facility]) Name Value Range Interpretation Code Description Data Kaye rce(s) Supporting Document(s) bedside glucose 97 mg/dL 70-105 Bedside Glucose [place] ([facility]) ID Date Data Source [id number] 05/19/2020 03:12:00 PM EST [place] ([facility]) Name Value Range Interpretation Code Description Data Kaye rce(s) Supporting Document(s) istat troponin 0.00 NG/mL 0.00-0.08 Istat Troponin [place] ([facility]) ID Date Data Source [id number] 05/19/2020 03:12:00 PM EST [place] ([facility]) Name Value Range Interpretation Code Description Data Kaye rce(s) Supporting Document(s) bedside glucose 97 mg/dL 70-105 Bedside Glucose [place] ([facility]) ID Date Data Source [id number] 05/19/2020 01:33:00 PM EST [place] ([facility]) Name Value Range Interpretation Code Description Data Kaye rce(s) Supporting Document(s) bedside glucose 169 mg/dL 70-105 Above high normal Bedside Gluco se [place] ([facility]) ID Date Data Source [id number] 05/19/2020 01:33:00 PM EST [place] ([facility]) Name Value Range Interpretation Code Description Data Kaye rce(s) Supporting Document(s) bedside glucose 169 mg/dL 70-105 Above high normal Bedside Gluco se [place] ([facility]) ID Date Data Source [id number] 05/19/2020 01:33:00 PM EST [place] ([facility]) Name Value Range Interpretation Code Description Data Kaye rce(s) Supporting Document(s) bedside glucose 169 mg/dL 70-105 Above high normal Bedside Gluco se [place] ([facility]) ID Date Data Source [id number] 05/19/2020 01:33:00 PM EST [place] ([facility]) Name Value Range Interpretation Code Description Data Kaye rce(s) Supporting Document(s) bedside glucose 169 mg/dL 70-105 Above high normal Bedside Gluco se [place] ([facility]) ID Date Data Source [id number] 05/19/2020 01:33:00 PM EST [place] ([facility]) Name Value Range Interpretation Code Description Data Kaye rce(s) Supporting Document(s) bedside glucose 169 mg/dL 70-105 Above high normal Bedside Gluco se [place] ([facility]) ID Date Data Source [id number] 05/19/2020 01:33:00 PM EST [place] ([facility]) Name Value Range Interpretation Code Description Data Kaye rce(s) Supporting Document(s) bedside glucose 169 mg/dL 70-105 Above high normal [facility] ID Date Data Source [id number] 05/19/2020 12:48:00 PM EST [place] ([facility]) Name Value Range Interpretation Code Description Data Kaye rce(s) Supporting Document(s) amphetamines level urine negative negative Amphetamine s Level Urine [place] ([facility]) barbiturates urine negative negative Barbiturates Urin e [place] ([facility]) benzodiazepines urine negative negative Benzodiazepine s Urine [place] ([facility]) cannabinoids urine positive negative Above high normal Cannabinoi ds Urine [place] ([facility]) cocaine metabolite urine negative negative Cocaine Met abolite Urine [place] ([facility]) methadone urine negative negative Methadone Urine [place] NA ([facility]) opiates urine negative negative Opiates Urine [place] ( [facility]) phencyclidine urine negative negative Phencyclidine Ur ine [place] ([facility]) ID Date Data Source [id number] 05/19/2020 12:48:00 PM EST [place] ([facility]) Name Value Range Interpretation Code Description Data Kaye rce(s) Supporting Document(s) appearance, urine rfx clear clear Appearance, Ur ine Rfx [place] ([facility]) color, urine rfx straw yellow Color, Urine Rfx [place] ([facility]) pH,urine rfx 7.0 units 5.0-9.0 pH,urine Rfx [place] (No [facility]) specific gravity ur auto rfx 1.002-1.035 Specif ic Barre Ur Auto Rfx [place] ([facility]) protein, urine auto rfx negative negative Protein, Uri ne Auto Rfx [place] ([facility]) glucose, urine (UA) auto rfx 3+ negative Above high n ormal Glucose, Urine (UA) Auto Rfx [place] ([facility]) ketone, urine auto rfx negative negative Ketone, Urine Auto Rfx [place] ([facility]) urobilinogen, urine auto rfx 0.2 mg/dL 0.0-2.0 Urobili nogen, Urine Auto Rfx [place] ([facility]) bilirubin, urine auto rfx negative negative Bilirubin, Urine Auto Rfx [place] ([facility]) leukocyte esterase ur auto rfx negative negative Leukocyte Esterase Ur Auto Rfx ROMAN ([facility]) nitrite, urine auto rfx negative negative Nitrite, Uri ne Auto Rfx ROMAN ([facility]) blood, urine blood rfx negative negative Blood, Urine Blood Rfx ROMAN ([facility]) WBC, urine auto rfx 0 /hpf 0-3 WBC, Urine Auto Rfx ROM[place] ([facility]) RBC, urine auto rfx 2 /hpf 0-3 RBC, Urine Auto Rfx ROMAN ([facility]) bacteria, urine auto rfx negative negative Bacteria, U rine Auto Rfx ROMAN ([facility]) squam epithelial cell ur aurfx 1 /hpf 0-6 Squam Epithelial Cell Ur Aurfx ROMAN ([facility]) hyaline cast, urine auto rfx 0 /lpf 0-1 Hyaline Cast, Urine Auto Rfx ROMAN ([facility]) ID Date Data Source [id number] 05/19/2020 12:48:00 PM EST ROMAN ([facility]) Name Value Range Interpretation Code Description Data Kaye rce(s) Supporting Document(s) amphetamines level urine negative negative Amphetamine s Level Urine ROMAN ([facility]) barbiturates urine negative negative Barbiturates Urin e ROMAN ([facility]) benzodiazepines urine negative negative Benzodiazepine s Urine ROMAN ([facility]) cannabinoids urine positive negative Above high normal Cannabinoi ds Urine ROMAN ([facility]) cocaine metabolite urine negative negative Cocaine Met abolite Urine ROMAN ([facility]) methadone urine negative negative Methadone Urine ATHE NA ([facility]) opiates urine negative negative Opiates Urine ROMAN ( [facility]) phencyclidine urine negative negative Phencyclidine Ur ine ROMAN ([facility]) ID Date Data Source [id number] 05/19/2020 12:48:00 PM EST ROMAN ([facility]) Name Value Range Interpretation Code Description Data Kaye rce(s) Supporting Document(s) appearance, urine rfx clear clear Appearance, Ur ine Rfx ROMAN ([facility]) color, urine rfx straw yellow Color, Urine Rfx AT TRAM ([facility]) pH,urine rfx 7.0 units 5.0-9.0 pH,[facility]ine [facility] specific gravity ur auto rfx 1.002-1.035 Specif ic Barre Ur Auto Rfx ROMAN ([facility]) protein, urine auto rfx negative negative Protein, Uri ne Auto Rfx [place] ([facility]) glucose, urine (UA) auto rfx 3+ negative Above high n ormal Glucose, Urine (UA) Auto Rfx [place] ([facility]) ketone, urine auto rfx negative negative Ketone, Urine Auto Rfx [place] ([facility]) urobilinogen, urine auto rfx 0.2 mg/dL 0.0-2.0 Urobili nogen, Urine Auto Rfx ROMAN ([facility]) bilirubin, urine auto rfx negative negative Bilirubin, Urine Auto Rfx [place] ([facility]) nitrite, urine auto rfx negative negative Nitrite, Uri ne Auto Rfx [place] ([facility]) leukocyte esterase ur auto rfx negative negative Leukocyte Esterase Ur Auto Rfx [place] ([facility]) blood, urine blood rfx negative negative Blood, Urine Blood Rfx [place] ([facility]) WBC, urine auto rfx 0 /hpf 0-3 WBC, Urine Auto Rfx ROM[place] ([facility]) RBC, urine auto rfx 2 /hpf 0-3 RBC, Urine Auto Rfx ROMAN ([facility]) bacteria, urine auto rfx negative negative Bacteria, U rine Auto Rfx ROM[place] ([facility]) squam epithelial cell ur aurfx 1 /hpf 0-6 Squam Epithelial Cell Ur Aurfx ROMAN ([facility]) hyaline cast, urine auto rfx 0 /lpf 0-1 Hyaline Cast, Urine Auto Rfx [place] ([facility]) ID Date Data Source [id number] 05/19/2020 12:48:00 PM EST ROMAN ([facility]) Name Value Range Interpretation Code Description Data Kaye rce(s) Supporting Document(s) amphetamines level urine negative negative Amphetamine s Level Urine ROMAN ([facility]) barbiturates urine negative negative Barbiturates Urin e ROMAN ([facility]) benzodiazepines urine negative negative Benzodiazepine s Urine ROMAN ([facility]) cannabinoids urine positive negative Above high normal Cannabinoi ds Urine ROMAN ([facility]) cocaine metabolite urine negative negative Cocaine Met abolite Urine ROMAN ([facility]) methadone urine negative negative Methadone Urine ATHE NA ([facility]) opiates urine negative negative Opiates Urine ROMAN ( [facility]) phencyclidine urine negative negative Phencyclidine Ur ine ROMAN ([facility]) ID Date Data Source [id number] 05/19/2020 12:48:00 PM EST ROMAN ([facility]) Name Value Range Interpretation Code Description Data Kaye rce(s) Supporting Document(s) appearance, urine rfx clear clear Appearance, Ur ine Rfx [place] ([facility]) color, urine rfx straw yellow Color, Urine Rfx AT TRAM ([facility]) pH,urine rfx 7.0 units 5.0-9.0 pH,urine Rfx ROMAN (No [facility]) specific gravity ur auto rfx 1.002-1.035 Specif ic [place]re Ur Auto Rfx [place] ([facility]) protein, urine auto rfx negative negative Protein, Uri ne Auto Rfx [place] ([facility]) glucose, urine (UA) auto rfx 3+ negative Above high n ormal Glucose, Urine (UA) Auto Rfx [place] ([facility]) ketone, urine auto rfx negative negative Ketone, Urine Auto Rfx [place] ([facility]) urobilinogen, urine auto rfx 0.2 mg/dL 0.0-2.0 Urobili nogen, Urine Auto Rfx [place] ([facility]) bilirubin, urine auto rfx negative negative Bilirubin, Urine Auto Rfx [place] ([facility]) nitrite, urine auto rfx negative negative Nitrite, Uri ne Auto Rfx ROM[place] ([facility]) leukocyte esterase ur auto rfx negative negative Leukocyte Esterase Ur Auto Rfx [place] ([facility]) blood, urine blood rfx negative negative Blood, Urine Blood Rfx ROM[place] ([facility]) WBC, urine auto rfx 0 /hpf 0-3 WBC, Urine Auto Rfx [place] ([facility]) RBC, urine auto rfx 2 /hpf 0-3 RBC, Urine Auto Rfx [place] ([facility]) bacteria, urine auto rfx negative negative Bacteria, U rine Auto Rfx [place] ([facility]) squam epithelial cell ur aurfx 1 /hpf 0-6 Squam Epithelial Cell Ur Aurfx ROMAN ([facility]) hyaline cast, urine auto rfx 0 /lpf 0-1 Hyaline Cast, Urine Auto Rfx [place] ([facility]) ID Date Data Source [id number] 05/19/2020 12:48:00 PM EST [place] ([facility]) Name Value Range Interpretation Code Description Data Kaye rce(s) Supporting Document(s) amphetamines level urine negative negative Amphetamine s Level Urine ROMAN ([facility]) barbiturates urine negative negative Barbiturates Urin e ROMAN ([facility]) benzodiazepines urine negative negative Benzodiazepine s Urine ROM[place] ([facility]) cocaine metabolite urine negative negative Cocaine Met abolite Urine ROMAN ([facility]) cannabinoids urine positive negative Above high normal Cannabinoi ds Urine ROMAN ([facility]) methadone urine negative negative Methadone Urine ATHE NA ([facility]) opiates urine negative negative Opiates Urine ROMAN ( [facility]) phencyclidine urine negative negative Phencyclidine Ur ine ROMAN ([facility]) ID Date Data Source [id number] 05/19/2020 12:48:00 PM EST ROM[place] ([facility]) Name Value Range Interpretation Code Description Data Kaye rce(s) Supporting Document(s) color, urine rfx straw yellow Color, Urine Rfx AT TRAM ([facility]) appearance, urine rfx clear clear Appearance, Ur ine Rfx ROMAN ([facility]) pH,urine rfx 7.0 units 5.0-9.0 pH,[facility]ine [facility]fx [facility] specific gravity ur auto rfx 1.002-1.035 Specif ic [place]re Ur Auto Rfx [place] ([facility]) protein, urine auto rfx negative negative Protein, Uri ne Auto Rfx [place] ([facility]) glucose, urine (UA) auto rfx 3+ negative Above high n ormal Glucose, Urine (UA) Auto Rfx [place] ([facility]) ketone, urine auto rfx negative negative Ketone, Urine Auto Rfx [place] ([facility]) urobilinogen, urine auto rfx 0.2 mg/dL 0.0-2.0 Urobili nogen, Urine Auto Rfx [place] ([facility]) bilirubin, urine auto rfx negative negative Bilirubin, Urine Auto Rfx [place] ([facility]) nitrite, urine auto rfx negative negative Nitrite, Uri ne Auto Rfx [place] ([facility]) leukocyte esterase ur auto rfx negative negative Leukocyte Esterase Ur Auto Rfx [place] ([facility]) blood, urine blood rfx negative negative Blood, Urine Blood Rfx [place] ([facility]) WBC, urine auto rfx 0 /hpf 0-3 WBC, Urine Auto Rfx [place] ([facility]) RBC, urine auto rfx 2 /hpf 0-3 RBC, Urine Auto Rfx [place] ([facility]) bacteria, urine auto rfx negative negative Bacteria, U rine Auto Rfx [place] ([facility]) squam epithelial cell ur aurfx 1 /hpf 0-6 Squam Epithelial Cell Ur Aurfx ROMAN ([facility]) hyaline cast, urine auto rfx 0 /lpf 0-1 Hyaline Cast, Urine Auto Rfx [place] ([facility]) ID Date Data Source [id number] 05/19/2020 12:48:00 PM EST ROMAN ([facility]) Name Value Range Interpretation Code Description Data Kaye rce(s) Supporting Document(s) amphetamines level urine negative negative Amphetamine s Level Urine ROMAN ([facility]) barbiturates urine negative negative Barbiturates Urin e ROMAN ([facility]) benzodiazepines urine negative negative Benzodiazepine s Urine ROMAN ([facility]) cannabinoids urine positive negative Above high normal Cannabinoi ds Urine ROMAN ([facility]) cocaine metabolite urine negative negative Cocaine Met abolite Urine ROMAN ([facility]) methadone urine negative negative Methadone Urine ATHE NA ([facility]) opiates urine negative negative Opiates Urine ROMAN ( [facility]) phencyclidine urine negative negative Phencyclidine Ur ine ROMAN ([facility]) ID Date Data Source [id number] 05/19/2020 12:48:00 PM EST [place] ([facility]) Name Value Range Interpretation Code Description Data Kaye rce(s) Supporting Document(s) appearance, urine rfx clear clear Appearance, Ur ine Rfx [place] ([facility]) color, urine rfx straw yellow Color, Urine Rfx AT TRAM ([facility]) pH,urine rfx 7.0 units 5.0-9.0 pH,urine Rfx [place] (No [facility]) specific gravity ur auto rfx 1.002-1.035 Specif ic [place]re Ur Auto Rfx [place] ([facility]) protein, urine auto rfx negative negative Protein, Uri ne Auto Rfx [place] ([facility]) glucose, urine (UA) auto rfx 3+ negative Above high n ormal Glucose, Urine (UA) Auto Rfx [place] ([facility]) ketone, urine auto rfx negative negative Ketone, Urine Auto Rfx [place] ([facility]) urobilinogen, urine auto rfx 0.2 mg/dL 0.0-2.0 Urobili nogen, Urine Auto Rfx [place] ([facility]) bilirubin, urine auto rfx negative negative Bilirubin, Urine Auto Rfx [place] ([facility]) nitrite, urine auto rfx negative negative Nitrite, Uri ne Auto Rfx [place] ([facility]) leukocyte esterase ur auto rfx negative negative Leukocyte Esterase Ur Auto Rfx [place] ([facility]) blood, urine blood rfx negative negative Blood, Urine Blood Rfx [place] ([facility]) WBC, urine auto rfx 0 /hpf 0-3 WBC, Urine Auto Rfx [place] ([facility]) RBC, urine auto rfx 2 /hpf 0-3 RBC, Urine Auto Rfx [place] ([facility]) bacteria, urine auto rfx negative negative Bacteria, U rine Auto Rfx [place] ([facility]) squam epithelial cell ur aurfx 1 /hpf 0-6 Squam Epithelial Cell Ur Aurfx [place] ([facility]) hyaline cast, urine auto rfx 0 /lpf 0-1 Hyaline Cast, Urine Auto Rfx [place] ([facility]) ID Date Data Source [id number] 05/19/2020 12:48:00 PM EST ROMAN ([facility]) Name Value Range Interpretation Code Description Data Kaye rce(s) Supporting Document(s) amphetamines level urine negative negative Amphetamine s Level Urine ROMAN ([facility]) barbiturates urine negative negative Barbiturates Urin e ROMAN ([facility]) benzodiazepines urine negative negative Benzodiazepine s Urine ROMAN ([facility]) cannabinoids urine positive negative Above high normal Cannabinoi ds Urine ROMAN ([facility]) cocaine metabolite urine negative negative Cocaine Met abolite Urine ROMAN ([facility]) methadone urine negative negative Methadone Urine ATHE NA ([facility]) opiates urine negative negative Opiates Urine ROMAN ( [facility]) phencyclidine urine negative negative Phencyclidine Ur ine ROMAN ([facility]) ID Date Data Source [id number] 05/19/2020 12:48:00 PM EST ROMAN ([facility]) Name Value Range Interpretation Code Description Data Kaye rce(s) Supporting Document(s) appearance, urine rfx clear clear Appearance, Ur ine Rfx [place] ([facility]) color, urine rfx straw yellow Color, Urine Rfx AT TRAM ([facility]) pH,urine rfx 7.0 units 5.0-9.0 pH,urine Rfx [place] (No [facility]) specific gravity ur auto rfx 1.002-1.035 Specif ic [place] Ur Auto Rfx [place] ([facility]) protein, urine auto rfx negative negative Protein, Uri ne Auto Rfx [place] ([facility]) glucose, urine (UA) auto rfx 3+ negative Above high n ormal Glucose, Urine (UA) Auto Rfx [place] ([facility]) urobilinogen, urine auto rfx 0.2 mg/dL 0.0-2.0 Urobili nogen, Urine Auto Rfx [place] ([facility]) ketone, urine auto rfx negative negative Ketone, Urine Auto Rfx [place] ([facility]) bilirubin, urine auto rfx negative negative Bilirubin, Urine Auto Rfx [place] ([facility]) nitrite, urine auto rfx negative negative Nitrite, Uri ne Auto Rfx [place] ([facility]) leukocyte esterase ur auto rfx negative negative Leukocyte Esterase Ur Auto Rfx [place] ([facility]) blood, urine blood rfx negative negative Blood, Urine Blood Rfx [place] ([facility]) WBC, urine auto rfx 0 /hpf 0-3 WBC, Urine Auto Rfx [place] ([facility]) RBC, urine auto rfx 2 /hpf 0-3 RBC, Urine Auto Rfx [place] ([facility]) bacteria, urine auto rfx negative negative Bacteria, U rine Auto Rfx [place] ([facility]) squam epithelial cell ur aurfx 1 /hpf 0-6 Squam Epithelial Cell Ur Aurfx [place] ([facility]) hyaline cast, urine auto rfx 0 /lpf 0-1 Hyaline Cast, Urine Auto Rfx [place] ([facility]) ID Date Data Source [id number] 05/19/2020 12:35:00 PM EST ROM[place] ([facility]) Name Value Range Interpretation Code Description Data Kaye rce(s) Supporting Document(s) bedside glucose 147 mg/dL 70-105 Above high normal Bedside Gluco se [place] ([facility]) ID Date Data Source [id number] 05/19/2020 12:35:00 PM EST [place] ([facility]) Name Value Range Interpretation Code Description Data Kaye rce(s) Supporting Document(s) bedside glucose 147 mg/dL 70-105 Above high normal Bedside Gluco se [place] ([facility]) ID Date Data Source [id number] 05/19/2020 12:35:00 PM EST [place] ([facility]) Name Value Range Interpretation Code Description Data Kaye rce(s) Supporting Document(s) bedside glucose 147 mg/dL 70-105 Above high normal Bedside Gluco se [place] ([facility]) ID Date Data Source [id number] 05/19[facility] Name Value Range Interpretation Code Description Data Kaye rce(s) Supporting Document(s) bedside glucose 147 mg/dL 70-105 Above high normal Bedside Gluco se [place] ([facility]) ID Date Data Source [id number] 05/19/2020 12:35:00 PM EST [place] ([facility]) Name Value Range Interpretation Code Description Data Kaye rce(s) Supporting Document(s) bedside glucose 147 mg/dL 70-105 Above high normal [facility] ID Date Data Source [id number] 05/19/2020 12:35[facility]00 PM [facility] Name Value Range Interpretation Code Description Data Kaye rce(s) Supporting Document(s) bedside glucose 147 mg/dL 70-105 Above high normal Bedside Gluco se [place] ([facility]) ID Date Data Source [id number] 05/19/2020 11:35:00 AM EST [place] ([facility]) Name Value Range Interpretation Code Description Data Kaye rce(s) Supporting Document(s) bedside glucose 132 mg/dL 70-105 Above high normal Bedside Gluco se [place] ([facility]) ID Date Data Source [id number] 05/19/2020 11:35:00 AM EST [place] ([facility]) Name Value Range Interpretation Code Description Data Kaye rce(s) Supporting Document(s) bedside glucose 132 mg/dL 70-105 Above high normal Bedside Gluco se [place] ([facility]) ID Date Data Source [id number] 05/19/2020 11:35:00 AM EST [place] ([facility]) Name Value Range Interpretation Code Description Data Kaye rce(s) Supporting Document(s) bedside glucose 132 mg/dL 70-105 Above high normal Bedside Gluco se [place] ([facility]) ID Date Data Source [id number] 05/19/2020 11:35:00 AM EST [place] ([facility]) Name Value Range Interpretation Code Description Data Kaye rce(s) Supporting Document(s) bedside glucose 132 mg/dL 70-105 Above high normal Bedside Gluco se [place] ([facility]) ID Date Data Source [id number] 05/19/2020 11:35:00 AM EST [place] ([facility]) Name Value Range Interpretation Code Description Data Kaye rce(s) Supporting Document(s) bedside glucose 132 mg/dL 70-105 Above high normal Bedside Gluco se [place] ([facility]) ID Date Data Source [id number] 05/19/2020 11:35:00 AM EST [place] ([facility]) Name Value Range Interpretation Code Description Data Kaye rce(s) Supporting Document(s) bedside glucose 132 mg/dL 70-105 Above high normal Bedside Gluco se [place] ([facility]) ID Date Data Source [id number] 05/19/2020 11:28:00 AM EST ROMAN [facility]) Name Value Range Interpretation Code Description Data Kaye rce(s) Supporting Document(s) ID Date Data Source [id number] 05/19/2020 11:28:00 AM EST ROMAN [facility]) Name Value Range Interpretation Code Description Data Kaye rce(s) Supporting Document(s) ID Date Data Source [id number] 05/19/2020 11:28:00 AM EST [place] [facility]) Name Value Range Interpretation Code Description Data Kaye rce(s) Supporting Document(s) ID Date Data Source [id number] 05/19/2020 11:28:00 AM EST [place] [facility]) Name Value Range Interpretation Code Description Data Kaye rce(s) Supporting Document(s) ID Date Data Source [id number] 05/19/2020 11:28:00 AM EST [place] [facility]) Name Value Range Interpretation Code Description Data Kaye rce(s) Supporting Document(s) ID Date Data Source [id number] 05/19/2020 11:28:00 AM EST [place] [facility]) Name Value Range Interpretation Code Description Data Kaye rce(s) Supporting Document(s) ID Date Data Source [id number] 05/19/2020 11:28:00 AM EST [facility] Name Value Range Interpretation Code Description Data Kaye rce(s) Supporting Document(s) SARS-CoV-2 (COVID 19) NEGATIVE - SARS-CoV-2 (COVID19) [facility] This lab was ordered by [facility] a nd reported by [facility]. ID Date Data Source [id number] 05/19/2020 11:17:00 AM EST [place] ([facility]) Name Value Range Interpretation Code Description Data Kaye rce(s) Supporting Document(s) istat pH 7.310 units 7.350-7.450 Below low normal Istat pH ROMAN ([facility]) istat pCO2 50.2 mmHg 35.0-45.0 Above high normal Istat pCO2 [place] ([facility]) istat pO2 107.0 mmHg 80-105 Above high normal Istat pO2 [place] ([facility]) istat TCO2 27.0 mmol/L 23.0-27.0 Istat TCO2 [place] ([facility]) istat HCO3 25.3 mmol/L 22.0-26.0 Istat HCO3 [place] ([facility]) istat base excess -1.0 mmol/L -2.0-3.0 Istat Base Excess [place] ([facility]) istat so2 98 % 95-98 Istat So2 [place] ([facility]) ID Date Data Source [id number] 05/19/2020 11:17:00 AM EST [place] ([facility]) Name Value Range Interpretation Code Description Data Kaye rce(s) Supporting Document(s) istat pH 7.310 units 7.350-7.450 Below low normal Istat pH ROMAN ([facility]) istat pCO2 50.2 mmHg 35.0-45.0 Above high normal Istat pCO2 ROM[place] ([facility]) istat pO2 107.0 mmHg 80-105 Above high normal Istat pO2 [place] ([facility]) istat TCO2 27.0 mmol/L 23.0-27.0 Istat TCO2 [place] ([facility]) istat HCO3 25.3 mmol/L 22.0-26.0 Istat HCO3 [place] ([facility]) istat base excess -1.0 mmol/L -2.0-3.0 Istat Base Excess ROM[place] ([facility]) istat so2 98 % 95-98 Istat So2 ROM[place] ([facility]) ID Date Data Source [id number] 05/19/2020 11:17:00 AM EST [place] ([facility]) Name Value Range Interpretation Code Description Data Kaye rce(s) Supporting Document(s) istat pH 7.310 units 7.350-7.450 Below low normal Istat pH ROMAN ([facility]) istat pCO2 50.2 mmHg 35.0-45.0 Above high normal Istat pCO2 ROM[place] ([facility]) istat pO2 107.0 mmHg 80-105 Above high normal Istat pO2 [place] ([facility]) istat TCO2 27.0 mmol/L 23.0-27.0 Istat TCO2 ROM[place] ([facility]) istat HCO3 25.3 mmol/L 22.0-26.0 Istat HCO3 ROM[place] ([facility]) istat base excess -1.0 mmol/L -2.0-3.0 Istat Base Excess ROM[place] ([facility]) istat so2 98 % 95-98 Istat So2 ROM[place] ([facility]) ID Date Data Source [id number] 05/19/2020 11:17:00 AM EST [place] ([facility]) Name Value Range Interpretation Code Description Data Kaye rce(s) Supporting Document(s) istat pH 7.310 units 7.350-7.450 Below low normal Istat pH ROMAN ([facility]) istat pCO2 50.2 mmHg 35.0-45.0 Above high normal Istat pCO2 [place] ([facility]) istat pO2 107.0 mmHg 80-105 Above high normal Istat pO2 [place] ([facility]) istat TCO2 27.0 mmol/L 23.0-27.0 Istat TCO2 [place] ([facility]) istat HCO3 25.3 mmol/L 22.0-26.0 Istat HCO3 [place] ([facility]) istat base excess -1.0 mmol/L -2.0-3.0 Istat Base Excess ROMAN ([facility]) istat so2 98 % 95-98 Istat So2 [place] ([facility]) ID Date Data Source [id number] 05/19/2020 11:17:00 AM EST [place] ([facility]) Name Value Range Interpretation Code Description Data Kaye rce(s) Supporting Document(s) istat pH 7.310 units 7.350-7.450 Below low normal Istat pH ROMAN ([facility]) istat pCO2 50.2 mmHg 35.0-45.0 Above high normal Istat pCO2 [place] ([facility]) istat pO2 107.0 mmHg 80-105 Above high normal Istat pO2 [place] ([facility]) istat TCO2 27.0 mmol/L 23.0-27.0 Istat TCO2 [place] ([facility]) istat HCO3 25.3 mmol/L 22.0-26.0 Istat HCO3 [place] ([facility]) istat base excess -1.0 mmol/L -2.0-3.0 Istat Base Excess ROM[place] ([facility]) istat so2 98 % 95-98 Istat So2 [facility] ([facility]) ID Date Data Source [id number] 05/19/2020 11:17:00 AM EST [place] ([facility]) Name Value Range Interpretation Code Description Data Kaye rce(s) Supporting Document(s) istat pH 7.310 units 7.350-7.450 Below low normal Istat pH ROM[place] ([facility]) istat pCO2 50.2 mmHg 35.0-45.0 Above high normal Istat pCO2 [place] ([facility]) istat pO2 107.0 mmHg 80-105 Above high normal Istat pO2 [place] ([facility]) istat TCO2 27.0 mmol/L 23.0-27.0 Istat TCO2 [place] ([facility]) istat HCO3 25.3 mmol/L 22.0-26.0 Istat HCO3 [place] ([facility]) istat base excess -1.0 mmol/L -2.0-3.0 Istat Base Excess [place] ([facility]) istat so2 98 % 95-98 Istat So2 [place] ([facility]) ID Date Data Source [id number] 05/19/2020 11:06:00 AM EST [place] ([facility]) Name Value Range Interpretation Code Description Data Kaye rce(s) Supporting Document(s) ross covid antigen negative negative Ross Covid Anti gen [place] ([facility]) ID Date Data Source [id number] 05/19/2020 11:06:00 AM EST [facility]) Name Value Range Interpretation Code Description Data Kaye rce(s) Supporting Document(s) ross covid antigen negative negative Ross Covid Anti gen [place] ([facility]) ID Date Data Source [id number] 05/19/2020 11:06:00 AM EST [place] ([facility]) Name Value Range Interpretation Code Description Data Kaye rce(s) Supporting Document(s) ross covid antigen negative negative Ross Covid Anti gen [place] ([facility]) ID Date Data Source [id number] 05/19/2020 11:06:00 AM EST [facility]) Name Value Range Interpretation Code Description Data Kaye rce(s) Supporting Document(s) ross covid antigen negative negative Ross Covid Anti gen ROM[place] ([facility]) ID Date Data Source [id number] 05/19/2020 11:06:00 AM EST [place] ([facility]) Name Value Range Interpretation Code Description Data Kaye rce(s) Supporting Document(s) ross covid antigen negative negative Ross Covid Anti gen [place] ([facility]) ID Date Data Source [id number] 05/19/2020 11:06:00 AM EST [place] ([facility]) Name Value Range Interpretation Code Description Data Kaye rce(s) Supporting Document(s) ross covid antigen negative negative Ross Covid Anti gen [place] ([facility]) ID Date Data Source [id number] 05/19/2020 11:06:00 AM EST [facility] Name Value Range Interpretation Code Description Data Kaye rce(s) Supporting Document(s) SARS COVID ANTIGEN NEGATIVE [facility] This lab was ordered by SERGIO merritt nd reported by [facility]. ID Date Data Source [id number] 05/19/2020 10:56:00 AM EST [place] ([facility]) Name Value Range Interpretation Code Description Data Kaye rce(s) Supporting Document(s) istat lactate 0.4-2.0 Above high normal Istat Lactate A [facility] ([facility]) ID Date Data Source [id number] 05/19/2020 10:56:00 AM EST [place] ([facility]) Name Value Range Interpretation Code Description Data Kaye rce(s) Supporting Document(s) istat lactate 0.4-2.0 Above high normal Istat Lactate A [place] ([facility]) ID Date Data Source [id number] 05/19/2020 10:56:00 AM EST [place] ([facility]) Name Value Range Interpretation Code Description Data Kaye rce(s) Supporting Document(s) istat lactate 0.4-2.0 Above high normal Istat Lactate A [facility] ([facility]) ID Date Data Source [id number] 05/19/2020 10:56:00 AM EST [place] ([facility]) Name Value Range Interpretation Code Description Data Kaye rce(s) Supporting Document(s) istat lactate 0.4-2.0 Above high normal [facility] ID Date Data Source [id number] 05/19/2020 10:56:00 AM EST [place] ([facility]) Name Value Range Interpretation Code Description Data Kaye rce(s) Supporting Document(s) istat lactate 0.4-2.0 Above high normal Istat Lactate A [facility] ([facility]) ID Date Data Source [id number] 05/19/2020 10:56:00 AM EST [place] ([facility]) Name Value Range Interpretation Code Description Data Kaye rce(s) Supporting Document(s) istat lactate 0.4-2.0 Above high normal [facility]) ID Date Data Source [id number] 05/19/2020 10:52:00 AM EST [place] ([facility]) Name Value Range Interpretation Code Description Data Kaye rce(s) Supporting Document(s) istat HCT 30.0 % 38.0-51.0 Below low normal Istat HCT [place] ( [facility]) istat glucose 252 mg/dL 70-105 Above high normal Istat Glucose A [place] ([facility]) istat sodium 141 mEq/L 136-145 Istat Sodium [place] ([facility]) istat potassium 3.8 mEq/L 3.5-5.1 Istat Potassium [place] ([facility]) istat Ca++ 5.3 mg/dL 4.5-5.3 Istat Ca++ [place] ([facility]) istat chloride 104 mEq/L 98-109 Istat Chloride [place] ([facility]) istat CO2 26.0 mm/L 23.0-27.0 Istat CO2 [place] ([facility]) istat BUN 18 mg/dL 8-26 Istat BUN [place] ([facility]) istat creatinine 1.1 mg/dL 0.6-1.3 Istat Creatinine AT [facility]) ID Date Data Source [id number] 05/19/2020 10:52:00 AM EST [place] ([facility]) Name Value Range Interpretation Code Description Data Kaye rce(s) Supporting Document(s) istat HCT 30.0 % 38.0-51.0 Below low normal Istat HCT [place] ( [facility]) istat glucose 252 mg/dL 70-105 Above high normal Istat Glucose A [place] ([facility]) istat sodium 141 mEq/L 136-145 Istat Sodium [place] ([facility]) istat potassium 3.8 mEq/L 3.5-5.1 Istat Potassium [place] ([facility]) istat Ca++ 5.3 mg/dL 4.5-5.3 Istat Ca++ [place] ([facility]) istat chloride 104 mEq/L 98-109 Istat Chloride [place] ([facility]) istat CO2 26.0 mm/L 23.0-27.0 Istat CO2 [place] ([facility]) istat BUN 18 mg/dL 8-26 Istat BUN [place] ([facility]) istat creatinine 1.1 mg/dL 0.6-1.3 Istat Creatinine AT [facility]) ID Date Data Source [id number] 05/19/2020 10:52:00 AM EST [place] ([facility]) Name Value Range Interpretation Code Description Data Kaye rce(s) Supporting Document(s) istat HCT 30.0 % 38.0-51.0 Below low normal Istat HCT [place] ( [facility]) istat glucose 252 mg/dL 70-105 Above high normal Istat Glucose A [facility] ([facility]) istat sodium 141 mEq/L 136-145 Istat Sodium [place] ([facility]) istat potassium 3.8 mEq/L 3.5-5.1 Istat Potassium [place] ([facility]) istat Ca++ 5.3 mg/dL 4.5-5.3 Istat Ca++ [place] ([facility]) istat chloride 104 mEq/L 98-109 Istat Chloride [place] ([facility]) istat CO2 26.0 mm/L 23.0-27.0 Istat CO2 [place] ([facility]) istat BUN 18 mg/dL 8-26 Istat BUN [place] ([facility]) istat creatinine 1.1 mg/dL 0.6-1.3 Istat Creatinine AT TRAM ([facility]) ID Date Data Source [id number] 05/19/2020 10:52:00 AM EST [place] ([facility]) Name Value Range Interpretation Code Description Data Kaye rce(s) Supporting Document(s) istat HCT 30.0 % 38.0-51.0 Below low normal Istat HCT [place] ( [facility]) istat glucose 252 mg/dL 70-105 Above high normal Istat Glucose A [facility] ([facility]) istat sodium 141 mEq/L 136-145 Istat Sodium [place] ([facility]) istat potassium 3.8 mEq/L 3.5-5.1 Istat Potassium [place] ([facility]) istat Ca++ 5.3 mg/dL 4.5-5.3 Istat Ca++ [place] ([facility]) istat chloride 104 mEq/L 98-109 Istat Chloride [place] ([facility]) istat CO2 26.0 mm/L 23.0-27.0 Istat CO2 [place] ([facility]) istat BUN 18 mg/dL 8-26 Istat BUN [place] ([facility]) istat creatinine 1.1 mg/dL 0.6-1.3 Istat Creatinine AT [facility]) ID Date Data Source [id number] 05/19/2020 10:52:00 AM EST [place] ([facility]) Name Value Range Interpretation Code Description Data Kaye rce(s) Supporting Document(s) istat HCT 30.0 % 38.0-51.0 Below low normal Istat HCT [place] ( [facility]) istat glucose 252 mg/dL 70-105 Above high normal Istat Glucose A [place] ([facility]) istat sodium 141 mEq/L 136-145 Istat Sodium [place] ([facility]) istat potassium 3.8 mEq/L 3.5-5.1 Istat Potassium [place] ([facility]) istat Ca++ 5.3 mg/dL 4.5-5.3 Istat Ca++ [place] ([facility]) istat chloride 104 mEq/L 98-109 Istat Chloride [place] ([facility]) istat CO2 26.0 mm/L 23.0-27.0 Istat CO2 [place] ([facility]) istat BUN 18 mg/dL 8-26 Istat BUN [place] ([facility]) istat creatinine 1.1 mg/dL 0.6-1.3 Istat Creatinine AT [facility]) ID Date Data Source [id number] 05/19/2020 10:52:00 AM EST [place] ([facility]) Name Value Range Interpretation Code Description Data Kaye rce(s) Supporting Document(s) istat HCT 30.0 % 38.0-51.0 Below low normal Istat HCT [place] ( [facility]) istat glucose 252 mg/dL 70-105 Above high normal Istat Glucose A [place] ([facility]) istat sodium 141 mEq/L 136-145 Istat Sodium [place] (No [facility]) istat potassium 3.8 mEq/L 3.5-5.1 Istat Potassium [place] ([facility]) istat Ca++ 5.3 mg/dL 4.5-5.3 Istat Ca++ [place] ([facility]) istat chloride 104 mEq/L 98-109 Istat Chloride [place] ([facility]) istat CO2 26.0 mm/L 23.0-27.0 Istat CO2 [place] ([facility]) istat BUN 18 mg/dL 8-26 Istat BUN [place] ([facility]) istat creatinine 1.1 mg/dL 0.6-1.3 Istat Creatinine AT [facility] ([facility]) ID Date Data Source [id number] 05/19/2020 10:51:00 AM EST [place] ([facility]) Name Value Range Interpretation Code Description Data Kaye rce(s) Supporting Document(s) lipase 97 U/L 73-393 Lipase [place] ([facility]) ID Date Data Source [id number] 05/19/2020 10:51:00 AM EST [place] ([facility]) Name Value Range Interpretation Code Description Data Kaye rce(s) Supporting Document(s) acetone/ketone 0.70 mg/dL <2.81 Acetone/ketone [place] ([facility]) ID Date Data Source [id number] 05/19/2020 10:51:00 AM EST [place] ([facility]) Name Value Range Interpretation Code Description Data Kaye rce(s) Supporting Document(s) glucose, fasting 258 mg/dL 70-100 Above high normal Glucose, Fas ting [place] ([facility]) blood urea nitrogen 18 mg/dL 7-18 Blood Urea Nitro gen [place] ([facility]) creatinine for GFR 1.29 mg/dL 0.55-1.30 Creatinine for GF R [place] ([facility]) glomerular filtration rate >58 Below low normal Beata merular Filtration Rate [place] ([facility]) sodium level 142 mEq/L 136-145 Sodium Level [place] (No [facility]) potassium serum 4.0 mEq/L 3.5-5.1 Potassium Serum [place] ([facility]) chloride level 106 mEq/L 98-107 Chloride Level [place] ([facility]) carbon dioxide level 27 mEq/L 21-32 Carbon Dioxide Level [place] ([facility]) anion gap 9 mEq/L 8-16 Anion Gap [place] ([facility]) calcium level 9.3 mg/dL 8.5-10.1 Calcium Level [place] ( [facility]) ID Date Data Source [id number] 05/19/2020 10:51:00 AM EST [place] ([facility]) Name Value Range Interpretation Code Description Data Kaye rce(s) Supporting Document(s) AST/SGOT 12 U/L 7-37 AST/SGOT [place] ([facility]) ALT/SGPT 13 U/L 12-78 ALT/SGPT [place] ([facility]) alkaline phosphatase 66 U/L 45-117 Alkaline Phosph atase [place] ([facility]) bilirubin,total 0.3 mg/dL 0.2-1.0 Bilirubin,total [place] ([facility]) bilirubin,direct 0.1 mg/dL 0.0-0.2 Bilirubin,direct AT TRAM [facility]) total protein 6.8 gm/dL 6.4-8.2 Total Protein [place] ( [facility]) albumin 3.7 gm/dL 3.2-5.2 Albumin [place] ([facility]) albumin/globulin ratio 1.2-2.2 Albumin/globu gerard Ratio [place] ([facility]) ID Date Data Source [id number] 05/19/2020 10:51:00 AM EST [place] ([facility]) Name Value Range Interpretation Code Description Data Kaye rce(s) Supporting Document(s) Hemoglobin A1c/Hemoglobin.total in Blood 8.7 % Hemoglobin a1C [place] ([facility]) estimated average glucose 203 mg/dL 60-110 Above high norm al Estimated Average Glucose [place] ([facility]) ID Date Data Source [id number] 05/19/2020 10:51:00 AM EST [place] ([facility]) Name Value Range Interpretation Code Description Data Kaye rce(s) Supporting Document(s) white blood count 6.8 10 4.0-10.0 White Blood Count [place] ([facility]) red blood count 3.21 10 4.00-5.40 Below low normal Red Blood Coun t [place] ([facility]) hemoglobin 8.9 g/dL 12.0-15.5 Below low normal Hemoglobin [place] ( [facility]) hematocrit 28.2 % 36.0-47.0 Below low normal Hematocrit [place] ( [facility]) mean corpuscular volume 87.9 fL 80.0-96.0 Mean Corpusc ular Volume [place] ([facility]) mean corpuscular hemoglobin 27.7 pg 27.0-33.0 Mean Cor puscular Hemoglobin [place] ([facility]) mean corpuscular HGB conc 31.6 g/dL 32.0-36.5 Below low oz l Mean Corpuscular HGB Conc [place] ([facility]) red cell distribution width 16.9 % 11.5-14.5 Above high no rmal Red Cell Distribution Width [place] ([facility]) platelet count, automated 261 10 150-450 Platelet C ount, Automated [place] ([facility]) neutrophils % 55.1 % 36.0-66.0 Neutrophils % [place] ( [facility]) lymph % 34.4 % 24.0-44.0 Lymph % [place] ([facility]) mono % 6.7 % 2.0-8.0 Above high normal [place] % [place] ([facility]) eos % 2.8 % 0.0-3.0 Eos % [place] ([facility]) baso % 0.7 % 0.0-1.0 Baso % [place] ([facility]) immature granulocyte % 0.3 % 0-3.0 Immature Gran ulocyte % [place] ([facility]) nucleated red blood cell % 0.0 % 0-0 Nucleated Red Blood Cell % [place] ([facility]) neutrophils # 3.8 10 1.5-8.5 Neutrophils # [place] ( [facility]) lymph # 2.4 10 1.5-5.0 Lymph # [place] ([facility]) mono # 0.5 10 0.0-0.8 [place] # [place] ([facility]) eos # 0.2 10 0.0-0.5 Eos # [facility] ([facility]) baso # 0.1 10 0.0-0.2 Baso # [facility] ([facility]) ID Date Data Source [id number] 05/19/2020 10:51:00 AM EST [place] ([facility]) Name Value Range Interpretation Code Description Data Kaye rce(s) Supporting Document(s) lipase 97 U/L 73-393 Lipase [place] ([facility]) ID Date Data Source [id number] 05/19/2020 10:51:00 AM EST [place] ([facility]) Name Value Range Interpretation Code Description Data Kaye rce(s) Supporting Document(s) acetone/ketone 0.70 mg/dL <2.81 Acetone/ketone [place] ([facility]) ID Date Data Source [id number] 05/19/2020 10:51:00 AM EST [place] ([facility]) Name Value Range Interpretation Code Description Data Kaey rce(s) Supporting Document(s) glucose, fasting 258 mg/dL 70-100 Above high normal Glucose, Fas ting [place] ([facility]) blood urea nitrogen 18 mg/dL 7-18 Blood Urea Nitro gen [place] ([facility]) creatinine for GFR 1.29 mg/dL 0.55-1.30 Creatinine for GF R [place] ([facility]) glomerular filtration rate >58 Below low normal Beata merular Filtration Rate [place] ([facility]) sodium level 142 mEq/L 136-145 Sodium Level [place] ([facility]) potassium serum 4.0 mEq/L 3.5-5.1 Potassium Serum ATHE NA ([facility]) chloride level 106 mEq/L 98-107 Chloride Level [place] ([facility]) carbon dioxide level 27 mEq/L 21-32 Carbon Dioxide Level [place] ([facility]) anion gap 9 mEq/L 8-16 Anion Gap [place] ([facility]) calcium level 9.3 mg/dL 8.5-10.1 Calcium Level [place] ( [facility]) ID Date Data Source [id number] 05/19/2020 10:51:00 AM EST [place] ([facility]) Name Value Range Interpretation Code Description Data Kaye rce(s) Supporting Document(s) AST/SGOT 12 U/L 7-37 AST/SGOT [place] ([facility]) ALT/SGPT 13 U/L 12-78 ALT/SGPT [place] ([facility]) alkaline phosphatase 66 U/L 45-117 Alkaline Phosph atase [place] ([facility]) bilirubin,total 0.3 mg/dL 0.2-1.0 Bilirubin,total [facility]) bilirubin,direct 0.1 mg/dL 0.0-0.2 Bilirubin,direct AT TRAM [facility]) total protein 6.8 gm/dL 6.4-8.2 Total Protein [place] ( [facility]) albumin 3.7 gm/dL 3.2-5.2 Albumin [place] ([facility]) albumin/globulin ratio 1.2-2.2 Albumin/globu gerard Ratio [place] ([facility]) ID Date Data Source [id number] 05/19/2020 10:51:00 AM EST [place] ([facility]) Name Value Range Interpretation Code Description Data Kaye rce(s) Supporting Document(s) Hemoglobin A1c/Hemoglobin.total in Blood 8.7 % Hemoglobin a1C [place] ([facility]) estimated average glucose 203 mg/dL 60-110 Above high norm al Estimated Average Glucose [facility]) ID Date Data Source [id number] 05/19/2020 10:51:00 AM EST [place] ([facility]) Name Value Range Interpretation Code Description Data Kaye rce(s) Supporting Document(s) white blood count 6.8 10 4.0-10.0 White Blood Count [place] ([facility]) red blood count 3.21 10 4.00-5.40 Below low normal Red Blood Coun t [place] ([facility]) hemoglobin 8.9 g/dL 12.0-15.5 Below low normal Hemoglobin [place] ( [facility]) hematocrit 28.2 % 36.0-47.0 Below low normal Hematocrit [place] ( [facility]) mean corpuscular volume 87.9 fL 80.0-96.0 Mean Corpusc ular Volume [place] ([facility]) mean corpuscular hemoglobin 27.7 pg 27.0-33.0 Mean Cor puscular Hemoglobin [place] ([facility]) mean corpuscular HGB conc 31.6 g/dL 32.0-36.5 Below low oz l Mean Corpuscular HGB Conc [place] ([facility]) red cell distribution width 16.9 % 11.5-14.5 Above high no rmal Red Cell Distribution Width [place] ([facility]) platelet count, automated 261 10 150-450 Platelet C ount, Automated [place] ([facility]) neutrophils % 55.1 % 36.0-66.0 Neutrophils % [place] ( [facility]) lymph % 34.4 % 24.0-44.0 Lymph % [place] ([facility]) mono % 6.7 % 2.0-8.0 Above high normal [place] % [place] ([facility]) eos % 2.8 % 0.0-3.0 Eos % [place] ([facility]) baso % 0.7 % 0.0-1.0 Baso % [place] ([facility]) immature granulocyte % 0.3 % 0-3.0 Immature Gran ulocyte % [place] ([facility]) nucleated red blood cell % 0.0 % 0-0 Nucleated Red Blood Cell % [place] ([facility]) neutrophils # 3.8 10 1.5-8.5 Neutrophils # [place] ( [facility]) lymph # 2.4 10 1.5-5.0 Lymph # [place] ([facility]) mono # 0.5 10 0.0-0.8 [place] # [place] ([facility]) eos # 0.2 10 0.0-0.5 Eos # [place] ([facility]) baso # 0.1 10 0.0-0.2 Baso # [place] ([facility]) ID Date Data Source [id number] 05/19/2020 10:51:00 AM EST [place] ([facility]) Name Value Range Interpretation Code Description Data Kaye rce(s) Supporting Document(s) lipase 97 U/L 73-393 Lipase [place] ([facility]) ID Date Data Source [id number] 05/19/2020 10:51:00 AM EST [place] ([facility]) Name Value Range Interpretation Code Description Data Kaye rce(s) Supporting Document(s) acetone/ketone 0.70 mg/dL <2.81 Acetone/ketone [place] ([facility]) ID Date Data Source [id number] 05/19/2020 10:51:00 AM EST [place] ([facility]) Name Value Range Interpretation Code Description Data Kaye rce(s) Supporting Document(s) glucose, fasting 258 mg/dL 70-100 Above high normal Glucose, Fas ting [place] ([facility]) blood urea nitrogen 18 mg/dL 7-18 Blood Urea Nitro gen [place] ([facility]) creatinine for GFR 1.29 mg/dL 0.55-1.30 Creatinine for GF R [place] ([facility]) glomerular filtration rate >58 Below low normal Beata merular Filtration Rate [place] ([facility]) sodium level 142 mEq/L 136-145 Sodium Level [place] ([facility]) potassium serum 4.0 mEq/L 3.5-5.1 Potassium Serum [place]HE [place] ([facility]) chloride level 106 mEq/L 98-107 Chloride Level [place] ([facility]) carbon dioxide level 27 mEq/L 21-32 Carbon Dioxide Level [place] ([facility]) anion gap 9 mEq/L 8-16 Anion Gap [place] ([facility]) calcium level 9.3 mg/dL 8.5-10.1 Calcium Level [place] ( [facility]) ID Date Data Source [id number] 05/19/2020 10:51:00 AM EST [place] ([facility]) Name Value Range Interpretation Code Description Data Kaye rce(s) Supporting Document(s) AST/SGOT 12 U/L 7-37 AST/SGOT [place] ([facility]) ALT/SGPT 13 U/L 12-78 ALT/SGPT [place] ([facility]) alkaline phosphatase 66 U/L 45-117 Alkaline Phosph atase [place] ([facility]) bilirubin,total 0.3 mg/dL 0.2-1.0 Bilirubin,total ATHE [facility]) bilirubin,direct 0.1 mg/dL 0.0-0.2 Bilirubin,direct AT TRAM [facility]) total protein 6.8 gm/dL 6.4-8.2 Total Protein [place] ( [facility]) albumin 3.7 gm/dL 3.2-5.2 Albumin [place] ([facility]) albumin/globulin ratio 1.2-2.2 Albumin/globu gerard Ratio [place] ([facility]) ID Date Data Source [id number] 05/19/2020 10:51:00 AM EST [place] ([facility]) Name Value Range Interpretation Code Description Data Kaye rce(s) Supporting Document(s) Hemoglobin A1c/Hemoglobin.total in Blood 8.7 % Hemoglobin a1C [place] ([facility]) estimated average glucose 203 mg/dL 60-110 Above high norm al Estimated Average Glucose [place] ([facility]) ID Date Data Source [id number] 05/19/2020 10:51:00 AM EST [place] ([facility]) Name Value Range Interpretation Code Description Data Kaye rce(s) Supporting Document(s) white blood count 6.8 10 4.0-10.0 White Blood Count [place] ([facility]) red blood count 3.21 10 4.00-5.40 Below low normal Red Blood Coun t [place] ([facility]) hemoglobin 8.9 g/dL 12.0-15.5 Below low normal Hemoglobin [place] ( [facility]) hematocrit 28.2 % 36.0-47.0 Below low normal Hematocrit [place] ( [facility]) mean corpuscular volume 87.9 fL 80.0-96.0 Mean Corpusc ular Volume [place] ([facility]) mean corpuscular hemoglobin 27.7 pg 27.0-33.0 Mean Cor puscular Hemoglobin [place] ([facility]) mean corpuscular HGB conc 31.6 g/dL 32.0-36.5 Below low oz l Mean Corpuscular HGB Conc [place] ([facility]) red cell distribution width 16.9 % 11.5-14.5 Above high no rmal Red Cell Distribution Width [place] ([facility]) platelet count, automated 261 10 150-450 Platelet C ount, Automated [place] ([facility]) neutrophils % 55.1 % 36.0-66.0 Neutrophils % [place] ( [facility]) lymph % 34.4 % 24.0-44.0 Lymph % [place] ([facility]) mono % 6.7 % 2.0-8.0 Above high normal [place] % [place] ([facility]) eos % 2.8 % 0.0-3.0 Eos % [place] ([facility]) baso % 0.7 % 0.0-1.0 Baso % [place] ([facility]) immature granulocyte % 0.3 % 0-3.0 Immature Gran ulocyte % [place] ([facility]) nucleated red blood cell % 0.0 % 0-0 Nucleated Red Blood Cell % [place] ([facility]) neutrophils # 3.8 10 1.5-8.5 Neutrophils # [place] ( [facility]) lymph # 2.4 10 1.5-5.0 Lymph # [place] ([facility]) mono # 0.5 10 0.0-0.8 [place] # [place] ([facility]) eos # 0.2 10 0.0-0.5 Eos # [place] ([facility]) baso # 0.1 10 0.0-0.2 Baso # [place] ([facility]) ID Date Data Source [id number] 05/19/2020 10:51:00 AM EST [place] ([facility]) Name Value Range Interpretation Code Description Data Kaye rce(s) Supporting Document(s) lipase 97 U/L 73-393 Lipase [place] ([facility]) ID Date Data Source [id number] 05/19/2020 10:51:00 AM EST [place] ([facility]) Name Value Range Interpretation Code Description Data Kaye rce(s) Supporting Document(s) acetone/ketone 0.70 mg/dL <2.81 Acetone/ketone [place] ([facility]) ID Date Data Source [id number] 05/19/2020 10:51:00 AM EST [place] ([facility]) Name Value Range Interpretation Code Description Data Kaye rce(s) Supporting Document(s) glucose, fasting 258 mg/dL 70-100 Above high normal Glucose, Fas ting [place] ([facility]) blood urea nitrogen 18 mg/dL 7-18 Blood Urea Nitro gen [place] ([facility]) creatinine for GFR 1.29 mg/dL 0.55-1.30 Creatinine for GF R [place] ([facility]) glomerular filtration rate >58 Below low normal Beata merular Filtration Rate [place] ([facility]) sodium level 142 mEq/L 136-145 Sodium Level [place] ([facility]) potassium serum 4.0 mEq/L 3.5-5.1 Potassium Serum [place]HE NA ([facility]) chloride level 106 mEq/L 98-107 Chloride Level [place] ([facility]) carbon dioxide level 27 mEq/L 21-32 Carbon Dioxide Level [place] ([facility]) anion gap 9 mEq/L 8-16 Anion Gap [place] ([facility]) calcium level 9.3 mg/dL 8.5-10.1 Calcium Level [place] ( [facility]) ID Date Data Source [id number] 05/19/2020 10:51:00 AM EST [place] ([facility]) Name Value Range Interpretation Code Description Data Kaye rce(s) Supporting Document(s) AST/SGOT 12 U/L 7-37 AST/SGOT [place] ([facility]) ALT/SGPT 13 U/L 12-78 ALT/SGPT [place] ([facility]) alkaline phosphatase 66 U/L 45-117 Alkaline Phosph atase [place] ([facility]) bilirubin,total 0.3 mg/dL 0.2-1.0 Bilirubin,total [place] ([facility]) bilirubin,direct 0.1 mg/dL 0.0-0.2 Bilirubin,direct AT TRAM ([facility]) total protein 6.8 gm/dL 6.4-8.2 Total Protein [place] ( [facility]) albumin 3.7 gm/dL 3.2-5.2 Albumin [place] ([facility]) albumin/globulin ratio 1.2-2.2 Albumin/globu gerard Ratio [place] ([facility]) ID Date Data Source [id number] 05/19/2020 10:51:00 AM EST [place] ([facility]) Name Value Range Interpretation Code Description Data Kaye rce(s) Supporting Document(s) Hemoglobin A1c/Hemoglobin.total in Blood 8.7 % Hemoglobin a1C [place] ([facility]) estimated average glucose 203 mg/dL 60-110 Above high norm al Estimated Average Glucose [facility]) ID Date Data Source [id number] 05/19/2020 10:51:00 AM EST [place] ([facility]) Name Value Range Interpretation Code Description Data Kaye rce(s) Supporting Document(s) white blood count 6.8 10 4.0-10.0 White Blood Count [place] ([facility]) red blood count 3.21 10 4.00-5.40 Below low normal Red Blood Coun t [place] ([facility]) hemoglobin 8.9 g/dL 12.0-15.5 Below low normal Hemoglobin [place] ( [facility]) hematocrit 28.2 % 36.0-47.0 Below low normal Hematocrit [place] ( [facility]) mean corpuscular volume 87.9 fL 80.0-96.0 Mean Corpusc ular Volume [place] ([facility]) mean corpuscular hemoglobin 27.7 pg 27.0-33.0 Mean Cor puscular Hemoglobin [place] ([facility]) mean corpuscular HGB conc 31.6 g/dL 32.0-36.5 Below low oz l Mean Corpuscular HGB Conc [place] ([facility]) red cell distribution width 16.9 % 11.5-14.5 Above high no rmal Red Cell Distribution Width [place] ([facility]) platelet count, automated 261 10 150-450 Platelet C ount, Automated [place] ([facility]) neutrophils % 55.1 % 36.0-66.0 Neutrophils % [place] ( [facility]) lymph % 34.4 % 24.0-44.0 Lymph % [place] ([facility]) mono % 6.7 % 2.0-8.0 Above high normal [place] % [place] ([facility]) eos % 2.8 % 0.0-3.0 Eos % [place] ([facility]) baso % 0.7 % 0.0-1.0 Baso % [place] ([facility]) immature granulocyte % 0.3 % 0-3.0 Immature Gran ulocyte % [place] ([facility]) nucleated red blood cell % 0.0 % 0-0 Nucleated Red Blood Cell % [place] ([facility]) neutrophils # 3.8 10 1.5-8.5 Neutrophils # [place] ( [facility]) lymph # 2.4 10 1.5-5.0 Lymph # [place] ([facility]) mono # 0.5 10 0.0-0.8 [place] # [place] ([facility]) eos # 0.2 10 0.0-0.5 Eos # [place] ([facility]) baso # 0.1 10 0.0-0.2 Baso # [place] ([facility]) ID Date Data Source [id number] 05/19/2020 10:51:00 AM EST [place] ([facility]) Name Value Range Interpretation Code Description Data Kaye rce(s) Supporting Document(s) lipase 97 U/L 73-393 Lipase [place] ([facility]) ID Date Data Source [id number] 05/19/2020 10:51:00 AM EST [place] ([facility]) Name Value Range Interpretation Code Description Data Kaye rce(s) Supporting Document(s) acetone/ketone 0.70 mg/dL <2.81 Acetone/ketone [place] ([facility]) ID Date Data Source [id number] 05/19/2020 10:51:00 AM EST [place] ([facility]) Name Value Range Interpretation Code Description Data Kaye rce(s) Supporting Document(s) glucose, fasting 258 mg/dL 70-100 Above high normal Glucose, Fas ting [place] ([facility]) blood urea nitrogen 18 mg/dL 7-18 Blood Urea Nitro gen [place] ([facility]) creatinine for GFR 1.29 mg/dL 0.55-1.30 Creatinine for GF R [place] ([facility]) glomerular filtration rate >58 Below low normal Beata merular Filtration Rate [place] ([facility]) sodium level 142 mEq/L 136-145 Sodium Level [place] ([facility]) potassium serum 4.0 mEq/L 3.5-5.1 Potassium Serum [place] ([facility]) chloride level 106 mEq/L 98-107 Chloride Level [place] ([facility]) carbon dioxide level 27 mEq/L 21-32 Carbon Dioxide Level [place] ([facility]) anion gap 9 mEq/L 8-16 Anion Gap [place] ([facility]) calcium level 9.3 mg/dL 8.5-10.1 Calcium Level [place] ( [facility]) ID Date Data Source [id number] 05/19/2020 10:51:00 AM EST [place] ([facility]) Name Value Range Interpretation Code Description Data Kaye rce(s) Supporting Document(s) AST/SGOT 12 U/L 7-37 AST/SGOT [place] ([facility]) ALT/SGPT 13 U/L 12-78 ALT/SGPT [place] ([facility]) alkaline phosphatase 66 U/L 45-117 Alkaline Phosph atase [place] ([facility]) bilirubin,total 0.3 mg/dL 0.2-1.0 Bilirubin,total [place]HE [place] ([facility]) bilirubin,direct 0.1 mg/dL 0.0-0.2 Bilirubin,direct AT TRAM ([facility]) total protein 6.8 gm/dL 6.4-8.2 Total Protein [place] ( [facility]) albumin 3.7 gm/dL 3.2-5.2 Albumin [place] ([facility]) albumin/globulin ratio 1.2-2.2 Albumin/globu gerard Ratio [place] ([facility]) ID Date Data Source [id number] 05/19/2020 10:51:00 AM EST [place] ([facility]) Name Value Range Interpretation Code Description Data Kaye rce(s) Supporting Document(s) Hemoglobin A1c/Hemoglobin.total in Blood 8.7 % Hemoglobin a1C [place] ([facility]) estimated average glucose 203 mg/dL 60-110 Above high norm al Estimated Average Glucose [facility]) ID Date Data Source [id number] 05/19/2020 10:51:00 AM EST [place] ([facility]) Name Value Range Interpretation Code Description Data Kaye rce(s) Supporting Document(s) white blood count 6.8 10 4.0-10.0 White Blood Count [place] ([facility]) red blood count 3.21 10 4.00-5.40 Below low normal Red Blood Coun t [place] ([facility]) hemoglobin 8.9 g/dL 12.0-15.5 Below low normal Hemoglobin [place] ( [facility]) hematocrit 28.2 % 36.0-47.0 Below low normal Hematocrit [place] ( [facility]) mean corpuscular volume 87.9 fL 80.0-96.0 Mean Corpusc ular Volume [place] ([facility]) mean corpuscular hemoglobin 27.7 pg 27.0-33.0 Mean Cor puscular Hemoglobin [place] ([facility]) mean corpuscular HGB conc 31.6 g/dL 32.0-36.5 Below low oz l Mean Corpuscular HGB Conc [place] ([facility]) red cell distribution width 16.9 % 11.5-14.5 Above high no rmal Red Cell Distribution Width [place] ([facility]) platelet count, automated 261 10 150-450 Platelet C ount, Automated [place] ([facility]) neutrophils % 55.1 % 36.0-66.0 Neutrophils % [place] ( [facility]) lymph % 34.4 % 24.0-44.0 Lymph % [place] ([facility]) mono % 6.7 % 2.0-8.0 Above high normal [place] % [place] ([facility]) eos % 2.8 % 0.0-3.0 Eos % [place] ([facility]) baso % 0.7 % 0.0-1.0 Baso % [place] ([facility]) immature granulocyte % 0.3 % 0-3.0 Immature Gran ulocyte % [place] ([facility]) nucleated red blood cell % 0.0 % 0-0 Nucleated Red Blood Cell % [place] ([facility]) neutrophils # 3.8 10 1.5-8.5 Neutrophils # [place] ( [facility]) lymph # 2.4 10 1.5-5.0 Lymph # [place] ([facility]) mono # 0.5 10 0.0-0.8 [place] # [place] ([facility]) eos # 0.2 10 0.0-0.5 Eos # [place] ([facility]) baso # 0.1 10 0.0-0.2 Baso # [place] ([facility]) ID Date Data Source [id number] 05/19/2020 10:51:00 AM EST [place] ([facility]) Name Value Range Interpretation Code Description Data Kaye rce(s) Supporting Document(s) lipase 97 U/L 73-393 Lipase [place] ([facility]) ID Date Data Source [id number] 05/19/2020 10:51:00 AM EST [place] ([facility]) Name Value Range Interpretation Code Description Data Kaye rce(s) Supporting Document(s) acetone/ketone 0.70 mg/dL <2.81 Acetone/ketone [place] ([facility]) ID Date Data Source [id number] 05/19/2020 10:51:00 AM EST [place] ([facility]) Name Value Range Interpretation Code Description Data Kaye rce(s) Supporting Document(s) glucose, fasting 258 mg/dL 70-100 Above high normal Glucose, Fas ting [place] ([facility]) blood urea nitrogen 18 mg/dL 7-18 Blood Urea Nitro gen [place] ([facility]) creatinine for GFR 1.29 mg/dL 0.55-1.30 Creatinine for GF R [place] ([facility]) glomerular filtration rate >58 Below low normal Beata merular Filtration Rate [place] ([facility]) sodium level 142 mEq/L 136-145 Sodium Level [place] ([facility]) potassium serum 4.0 mEq/L 3.5-5.1 Potassium Serum ATHE NA ([facility]) chloride level 106 mEq/L 98-107 Chloride Level [place] ([facility]) carbon dioxide level 27 mEq/L 21-32 Carbon Dioxide Level [place] ([facility]) anion gap 9 mEq/L 8-16 Anion Gap [place] ([facility]) calcium level 9.3 mg/dL 8.5-10.1 Calcium Level [place] ( [facility]) ID Date Data Source [id number] 05/19/2020 10:51:00 AM EST [place] ([facility]) Name Value Range Interpretation Code Description Data Kaye rce(s) Supporting Document(s) AST/SGOT 12 U/L 7-37 AST/SGOT [place] ([facility]) ALT/SGPT 13 U/L 12-78 ALT/SGPT [place] ([facility]) alkaline phosphatase 66 U/L 45-117 Alkaline Phosph atase [place] ([facility]) bilirubin,total 0.3 mg/dL 0.2-1.0 Bilirubin,total ATHE NA ([facility]) bilirubin,direct 0.1 mg/dL 0.0-0.2 Bilirubin,direct AT TRAM ([facility]) total protein 6.8 gm/dL 6.4-8.2 Total Protein [place] ( [facility]) albumin 3.7 gm/dL 3.2-5.2 Albumin [place] ([facility]) albumin/globulin ratio 1.2-2.2 Albumin/globu gerard Ratio [place] ([facility]) ID Date Data Source [id number] 05/19/2020 10:51:00 AM EST [place] ([facility]) Name Value Range Interpretation Code Description Data Kaye rce(s) Supporting Document(s) Hemoglobin A1c/Hemoglobin.total in Blood 8.7 % Hemoglobin a1C [place] ([facility]) estimated average glucose 203 mg/dL 60-110 Above high norm al Estimated Average Glucose [place] ([facility]) ID Date Data Source [id number] 05/19/2020 10:51:00 AM EST [place] ([facility]) Name Value Range Interpretation Code Description Data Kaye rce(s) Supporting Document(s) white blood count 6.8 10 4.0-10.0 White Blood Count [place] ([facility]) red blood count 3.21 10 4.00-5.40 Below low normal Red Blood Coun t [place] ([facility]) hemoglobin 8.9 g/dL 12.0-15.5 Below low normal Hemoglobin [place] ( [facility]) hematocrit 28.2 % 36.0-47.0 Below low normal Hematocrit [place] ( [facility]) mean corpuscular volume 87.9 fL 80.0-96.0 Mean Corpusc ular Volume [place] ([facility]) mean corpuscular hemoglobin 27.7 pg 27.0-33.0 Mean Cor puscular Hemoglobin [place] ([facility]) mean corpuscular HGB conc 31.6 g/dL 32.0-36.5 Below low oz l Mean Corpuscular HGB Conc [place] ([facility]) red cell distribution width 16.9 % 11.5-14.5 Above high no rmal Red Cell Distribution Width [place] ([facility]) platelet count, automated 261 10 150-450 Platelet C ount, Automated [place] ([facility]) neutrophils % 55.1 % 36.0-66.0 Neutrophils % [place] ( [facility]) lymph % 34.4 % 24.0-44.0 Lymph % [place] ([facility]) mono % 6.7 % 2.0-8.0 Above high normal [place] % [place] ([facility]) eos % 2.8 % 0.0-3.0 Eos % [place] ([facility]) baso % 0.7 % 0.0-1.0 Baso % [place] ([facility]) immature granulocyte % 0.3 % 0-3.0 Immature Gran ulocyte % [place] ([facility]) nucleated red blood cell % 0.0 % 0-0 Nucleated Red Blood Cell % [place] ([facility]) neutrophils # 3.8 10 1.5-8.5 Neutrophils # [place] ( [facility]) lymph # 2.4 10 1.5-5.0 Lymph # [place] ([facility]) mono # 0.5 10 0.0-0.8 [place] # [place] ([facility]) eos # 0.2 10 0.0-0.5 Eos # [facility] [facility] baso # 0.1 10 0.0-0.2 Baso # ROMAN ([facility]) ID Date Data Source [id number] 05/19/2020 10:35:00 AM EST ROMAN ([facility]) Name Value Range Interpretation Code Description Data Kaye rce(s) Supporting Document(s) bedside glucose 56 mg/dL 70-105 Below low normal Bedside Glucos e ROMAN ([facility]) ID Date Data Source [id number] 05/19/2020 10:35:00 AM EST ROMAN ([facility]) Name Value Range Interpretation Code Description Data Kaye rce(s) Supporting Document(s) bedside glucose 56 mg/dL 70-105 Below low normal Bedside Glucos e ROMAN ([facility]) ID Date Data Source [id number] 05/19/2020 10:35:00 AM EST ROMAN ([facility]) Name Value Range Interpretation Code Description Data Kaye rce(s) Supporting Document(s) bedside glucose 56 mg/dL 70-105 Below low normal Bedside Glucos e ROMAN ([facility]) ID Date Data Source [id number] 05/19/2020 10:35:00 AM EST ROMAN ([facility]) Name Value Range Interpretation Code Description Data Kaye rce(s) Supporting Document(s) bedside glucose 56 mg/dL 70-105 Below low normal Bedside Glucos e ROMAN ([facility]) ID Date Data Source [id number] 05/19/2020 10:35:00 AM EST ROMAN ([facility]) Name Value Range Interpretation Code Description Data Kaye rce(s) Supporting Document(s) bedside glucose 56 mg/dL 70-105 Below low normal Bedside Glucos e ROMAN ([facility]) ID Date Data Source [id number] 05/19/2020 10:35:00 AM EST ROMAN ([facility]) Name Value Range Interpretation Code Description Data Kaye rce(s) Supporting Document(s) bedside glucose 56 mg/dL 70-105 Below low normal Bedside Glucos e ROMAN ([facility]) ID Date Data Source [id number] 03/23/2020 09:53:00 AM EST ROMAN ([facility]) Name Value Range Interpretation Code Description Data Kaye rce(s) Supporting Document(s) bedside glucose 215 mg/dL 70-105 Above high normal Bedside Gluco se ROMAN ([facility]) ID Date Data Source [id number] 03/23/2020 09:53:00 AM EST ROMAN ([facility]) Name Value Range Interpretation Code Description Data Kaye rce(s) Supporting Document(s) bedside glucose 215 mg/dL 70-105 Above high normal Bedside Gluco se ROMAN ([facility]) ID Date Data Source [id number] 03/23/2020 [facility]53[facility] Name Value Range Interpretation Code Description Data Kaye rce(s) Supporting Document(s) bedside glucose 215 mg/dL 70-105 Above high normal [facility] ID Date Data Source [id number] 03/23/2020 09:53:00 AM EST [facility]) Name Value Range Interpretation Code Description Data Kaye rce(s) Supporting Document(s) bedside glucose 215 mg/dL 70-105 Above high normal [facility] ID Date Data Source [id number] 03/23/2020 09:53:00 AM EST ROMAN [facility]) Name Value Range Interpretation Code Description Data Kaye rce(s) Supporting Document(s) bedside glucose 215 mg/dL 70-105 Above high normal [facility] ID Date Data Source [id number] 03/23/2020 09:53:00 AM EST ROMAN [facility]) Name Value Range Interpretation Code Description Data Kaye rce(s) Supporting Document(s) bedside glucose 215 mg/dL 70-105 Above high normal [facility] ID Date Data Source [id number] 03/23/2020 06:02:00 AM EST ROMAN ([facility]) Name Value Range Interpretation Code Description Data Kaye rce(s) Supporting Document(s) acetone/ketone > 46.00 <2.81 Above high normal Acetone/ketone ROMAN ([facility]) ID Date Data Source [id number] 03/23/2020 06:02:00 AM EST ROMAN ([facility]) Name Value Range Interpretation Code Description Data Kaye rce(s) Supporting Document(s) glucose, fasting 297 mg/dL 70-100 Above high normal Glucose, Fas ting ROMAN ([facility]) blood urea nitrogen 8 mg/dL 7-18 Blood Urea Nitro gen ROMAN ([facility]) creatinine for GFR 1.16 mg/dL 0.55-1.30 Creatinine for GF R ROMAN ([facility]) glomerular filtration rate > 60.0 >58 Glomerula r Filtration Rate ROMAN ([facility]) sodium level 134 mEq/L 136-145 Below low normal Sodium Level ATHE ([facility]) potassium serum 4.1 mEq/L 3.5-5.1 Potassium Serum ATHE ([facility]) chloride level 103 mEq/L 98-107 Chloride Level ROMAN ([facility]) carbon dioxide level 19 mEq/L 21-32 Below low normal Carbon Di oxide Level ROMAN ([facility]) anion gap 12 mEq/L 8-16 Anion Gap ROMAN ([facility]) calcium level 8.5 mg/dL 8.5-10.1 Calcium Level ROMAN ( [facility]) AST/SGOT 13 U/L 7-37 AST/SGOT ROMAN ([facility]) ALT/SGPT 17 U/L 12-78 ALT/SGPT ROMAN ([facility]) alkaline phosphatase 57 U/L 45-117 Alkaline Phosph atase ROMAN ([facility]) bilirubin,total 0.4 mg/dL 0.2-1.0 Bilirubin,total ATHE ([facility]) total protein 6.2 gm/dL 6.4-8.2 Below low normal Total Protein AT [facility]) albumin 3.4 gm/dL 3.2-5.2 Albumin ROMAN ([facility]) albumin/globulin ratio 1.2-2.2 Albumin/globu gerard Ratio [place] ([facility]) ID Date Data Source [id number] 03/23/2020 06:02:00 AM EST [place] ([facility]) Name Value Range Interpretation Code Description Data Kaye rce(s) Supporting Document(s) white blood count 5.7 10 4.0-10.0 White Blood Count [place] ([facility]) red blood count 3.11 10 4.00-5.40 Below low normal Red Blood Coun t [place] ([facility]) hemoglobin 8.6 g/dL 12.0-15.5 Below low normal Hemoglobin [place] ( [facility]) hematocrit 26.3 % 36.0-47.0 Below low normal Hematocrit [place] ( [facility]) mean corpuscular volume 84.6 fL 80.0-96.0 Mean Corpusc ular Volume [place] ([facility]) mean corpuscular hemoglobin 27.7 pg 27.0-33.0 Mean Cor puscular Hemoglobin [place] ([facility]) mean corpuscular HGB conc 32.7 g/dL 32.0-36.5 Mean Corpu scular HGB Conc [place] ([facility]) red cell distribution width 15.5 % 11.5-14.5 Above high no rmal Red Cell Distribution Width [place] ([facility]) platelet count, automated 218 10 150-450 Platelet C ount, Automated ROMAN ([facility]) nucleated red blood cell % 0.0 % 0-0 Nucleated Red Blood Cell % [place] ([facility]) ID Date Data Source [id number] 03/23/2020 06:02:00 AM EST [place] ([facility]) Name Value Range Interpretation Code Description Data Kaye rce(s) Supporting Document(s) white blood count 5.7 10 4.0-10.0 White Blood Count [place] ([facility]) red blood count 3.11 10 4.00-5.40 Below low normal Red Blood Coun t ROMAN ([facility]) hemoglobin 8.6 g/dL 12.0-15.5 Below low normal Hemoglobin ROMAN ( [facility]) hematocrit 26.3 % 36.0-47.0 Below low normal Hematocrit ROMAN ( [facility]) mean corpuscular volume 84.6 fL 80.0-96.0 Mean Corpusc ular Volume [place] ([facility]) mean corpuscular hemoglobin 27.7 pg 27.0-33.0 Mean Cor puscular Hemoglobin [place] ([facility]) mean corpuscular HGB conc 32.7 g/dL 32.0-36.5 Mean Corpu scular HGB Conc [place] ([facility]) red cell distribution width 15.5 % 11.5-14.5 Above high no rmal Red Cell Distribution Width [place] ([facility]) platelet count, automated 218 10 150-450 Platelet C ount, Automated [place] ([facility]) nucleated red blood cell % 0.0 % 0-0 Nucleated Red Blood Cell % [place] ([facility]) ID Date Data Source [id number] 03/23/2020 06:02:00 AM EST [place] ([facility]) Name Value Range Interpretation Code Description Data Kaye rce(s) Supporting Document(s) acetone/ketone > 46.00 <2.81 Above high normal Acetone/ketone [place] ([facility]) ID Date Data Source [id number] 03/23/2020 06:02:00 AM EST [place] ([facility]) Name Value Range Interpretation Code Description Data Kaye rce(s) Supporting Document(s) glucose, fasting 297 mg/dL 70-100 Above high normal Glucose, Fas ting [place] ([facility]) blood urea nitrogen 8 mg/dL 7-18 Blood Urea Nitro gen [place] ([facility]) creatinine for GFR 1.16 mg/dL 0.55-1.30 Creatinine for GF R ROMAN ([facility]) sodium level 134 mEq/L 136-145 Below low normal Sodium Level ATHE NA ([facility]) glomerular filtration rate > 60.0 >58 Glomerula r Filtration Rate ROMAN ([facility]) potassium serum 4.1 mEq/L 3.5-5.1 Potassium Serum ATHE ([facility]) chloride level 103 mEq/L 98-107 Chloride Level ROMAN ([facility]) carbon dioxide level 19 mEq/L 21-32 Below low normal Carbon Di oxide Level ROMAN ([facility]) anion gap 12 mEq/L 8-16 Anion Gap ROMAN ([facility]) calcium level 8.5 mg/dL 8.5-10.1 Calcium Level ROMAN ( [facility]) AST/SGOT 13 U/L 7-37 AST/SGOT [place] ([facility]) ALT/SGPT 17 U/L 12-78 ALT/SGPT [place] ([facility]) alkaline phosphatase 57 U/L 45-117 Alkaline Phosph atase ROMAN ([facility]) bilirubin,total 0.4 mg/dL 0.2-1.0 Bilirubin,total ATHE ([facility]) total protein 6.2 gm/dL 6.4-8.2 Below low normal Total Protein AT [place] ([facility]) albumin 3.4 gm/dL 3.2-5.2 Albumin ROMAN ([facility]) albumin/globulin ratio 1.2-2.2 Albumin/globu gerard Ratio [place] ([facility]) ID Date Data Source [id number] 03/23/2020 06:02:00 AM EST [place] ([facility]) Name Value Range Interpretation Code Description Data Kaye rce(s) Supporting Document(s) white blood count 5.7 10 4.0-10.0 White Blood Count ROM[place] ([facility]) red blood count 3.11 10 4.00-5.40 Below low normal Red Blood Coun t ROM[place] ([facility]) hemoglobin 8.6 g/dL 12.0-15.5 Below low normal Hemoglobin ROM[place] ( [facility]) hematocrit 26.3 % 36.0-47.0 Below low normal Hematocrit [place] ( [facility]) mean corpuscular volume 84.6 fL 80.0-96.0 Mean Corpusc ular Volume ROMAN ([facility]) mean corpuscular hemoglobin 27.7 pg 27.0-33.0 Mean Cor puscular Hemoglobin ROMAN ([facility]) mean corpuscular HGB conc 32.7 g/dL 32.0-36.5 Mean Corpu scular HGB Conc [place] ([facility]) red cell distribution width 15.5 % 11.5-14.5 Above high no rmal Red Cell Distribution Width [place] ([facility]) platelet count, automated 218 10 150-450 Platelet C ount, Automated ROM[place] ([facility]) nucleated red blood cell % 0.0 % 0-0 Nucleated Red Blood Cell % [place] ([facility]) ID Date Data Source [id number] 03/23/2020 06:02:00 AM EST [place] ([facility]) Name Value Range Interpretation Code Description Data Kaye rce(s) Supporting Document(s) acetone/ketone > 46.00 <2.81 Above high normal Acetone/ketone [place] ([facility]) ID Date Data Source [id number] 03/23/2020 06:02:00 AM EST [place] ([facility]) Name Value Range Interpretation Code Description Data Kaye rce(s) Supporting Document(s) glucose, fasting 297 mg/dL 70-100 Above high normal Glucose, Fas ting [place] ([facility]) blood urea nitrogen 8 mg/dL 7-18 Blood Urea Nitro gen ROMAN ([facility]) creatinine for GFR 1.16 mg/dL 0.55-1.30 Creatinine for GF R ROM[place] ([facility]) glomerular filtration rate > 60.0 >58 Glomerula r Filtration Rate [place] ([facility]) sodium level 134 mEq/L 136-145 Below low normal Sodium Level ATHE NA ([facility]) potassium serum 4.1 mEq/L 3.5-5.1 Potassium Serum ATHE NA ([facility]) chloride level 103 mEq/L 98-107 Chloride Level ROMAN ([facility]) carbon dioxide level 19 mEq/L 21-32 Below low normal Carbon Di oxide Level ROM[place] ([facility]) calcium level 8.5 mg/dL 8.5-10.1 Calcium Level ROMAN ( [facility]) anion gap 12 mEq/L 8-16 Anion Gap ROM[place] ([facility]) AST/SGOT 13 U/L 7-37 AST/SGOT [place] ([facility]) ALT/SGPT 17 U/L 12-78 ALT/SGPT [place] ([facility]) alkaline phosphatase 57 U/L 45-117 Alkaline Phosph atase ROM[place] ([facility]) bilirubin,total 0.4 mg/dL 0.2-1.0 Bilirubin,total ATHE ([facility]) total protein 6.2 gm/dL 6.4-8.2 Below low normal Total Protein AT [facility] ([facility]) albumin/globulin ratio 1.2-2.2 Albumin/globu gerard Ratio ROMAN ([facility]) albumin 3.4 gm/dL 3.2-5.2 Albumin [place] ([facility]) ID Date Data Source [id number] 03/23/2020 06:02:00 AM EST [place] ([facility]) Name Value Range Interpretation Code Description Data Kaye rce(s) Supporting Document(s) white blood count 5.7 10 4.0-10.0 White Blood Count [place] ([facility]) red blood count 3.11 10 4.00-5.40 Below low normal Red Blood Coun t [place] ([facility]) hemoglobin 8.6 g/dL 12.0-15.5 Below low normal Hemoglobin [place] ( [facility]) hematocrit 26.3 % 36.0-47.0 Below low normal Hematocrit [place] ( [facility]) mean corpuscular volume 84.6 fL 80.0-96.0 Mean Corpusc ular Volume [place] ([facility]) mean corpuscular hemoglobin 27.7 pg 27.0-33.0 Mean Cor puscular Hemoglobin [place] ([facility]) mean corpuscular HGB conc 32.7 g/dL 32.0-36.5 Mean Corpu scular HGB Conc [place] ([facility]) red cell distribution width 15.5 % 11.5-14.5 Above high no rmal Red Cell Distribution Width [place] ([facility]) platelet count, automated 218 10 150-450 Platelet C ount, Automated [place] ([facility]) nucleated red blood cell % 0.0 % 0-0 Nucleated Red Blood Cell % [place] ([facility]) ID Date Data Source [id number] 03/23/2020 06:02:00 AM EST [place] ([facility]) Name Value Range Interpretation Code Description Data Kaye rce(s) Supporting Document(s) acetone/ketone > 46.00 <2.81 Above high normal Acetone/ketone [place] ([facility]) ID Date Data Source [id number] 03/23/2020 06:02:00 AM EST [place] ([facility]) Name Value Range Interpretation Code Description Data Kaye rce(s) Supporting Document(s) glucose, fasting 297 mg/dL 70-100 Above high normal Glucose, Fas ting [place] ([facility]) blood urea nitrogen 8 mg/dL 7-18 Blood Urea Nitro gen [place] ([facility]) creatinine for GFR 1.16 mg/dL 0.55-1.30 Creatinine for GF R [place] ([facility]) glomerular filtration rate > 60.0 >58 Glomerula r Filtration Rate [place] ([facility]) sodium level 134 mEq/L 136-145 Below low normal Sodium Level ATHE NA ([facility]) potassium serum 4.1 mEq/L 3.5-5.1 Potassium Serum ATHE NA ([facility]) chloride level 103 mEq/L 98-107 Chloride Level ROMAN ([facility]) carbon dioxide level 19 mEq/L 21-32 Below low normal Carbon Di oxide Level ROM[place] ([facility]) anion gap 12 mEq/L 8-16 Anion Gap ROM[place] ([facility]) calcium level 8.5 mg/dL 8.5-10.1 Calcium Level ROMAN ( [facility]) AST/SGOT 13 U/L 7-37 AST/SGOT [place] ([facility]) ALT/SGPT 17 U/L 12-78 ALT/SGPT [place] ([facility]) alkaline phosphatase 57 U/L 45-117 Alkaline Phosph atase [place] ([facility]) bilirubin,total 0.4 mg/dL 0.2-1.0 Bilirubin,total ATHE ([facility]) total protein 6.2 gm/dL 6.4-8.2 Below low normal Total Protein AT TRAM ([facility]) albumin 3.4 gm/dL 3.2-5.2 Albumin ROM[place] ([facility]) albumin/globulin ratio 1.2-2.2 Albumin/globu gerard Ratio ROM[place] ([facility]) ID Date Data Source [id number] 03/23/2020 06:02:00 AM EST [place] ([facility]) Name Value Range Interpretation Code Description Data Kaye rce(s) Supporting Document(s) acetone/ketone > 46.00 <2.81 Above high normal Acetone/ketone [place] ([facility]) ID Date Data Source [id number] 03/23/2020 06:02:00 AM EST [place] ([facility]) Name Value Range Interpretation Code Description Data Kaye rce(s) Supporting Document(s) glucose, fasting 297 mg/dL 70-100 Above high normal Glucose, Fas ting [place] ([facility]) blood urea nitrogen 8 mg/dL 7-18 Blood Urea Nitro gen [place] ([facility]) creatinine for GFR 1.16 mg/dL 0.55-1.30 Creatinine for GF R [place] ([facility]) glomerular filtration rate > 60.0 >58 Glomerula r Filtration Rate [place] ([facility]) sodium level 134 mEq/L 136-145 Below low normal Sodium Level ATHE NA ([facility]) potassium serum 4.1 mEq/L 3.5-5.1 Potassium Serum [place] ([facility]) chloride level 103 mEq/L 98-107 Chloride Level [place] ([facility]) carbon dioxide level 19 mEq/L 21-32 Below low normal Carbon Di oxide Level [place] ([facility]) anion gap 12 mEq/L 8-16 Anion Gap [place] ([facility]) calcium level 8.5 mg/dL 8.5-10.1 Calcium Level [place] ( [facility]) AST/SGOT 13 U/L 7-37 AST/SGOT [place] ([facility]) ALT/SGPT 17 U/L 12-78 ALT/SGPT [place] ([facility]) alkaline phosphatase 57 U/L 45-117 Alkaline Phosph atase [place] ([facility]) bilirubin,total 0.4 mg/dL 0.2-1.0 Bilirubin,total [place] ([facility]) total protein 6.2 gm/dL 6.4-8.2 Below low normal Total Protein AT TRAM ([facility]) albumin 3.4 gm/dL 3.2-5.2 Albumin [place] ([facility]) albumin/globulin ratio 1.2-2.2 Albumin/globu gerard Ratio [place] ([facility]) ID Date Data Source [id number] 03/23/2020 06:02:00 AM EST [place] ([facility]) Name Value Range Interpretation Code Description Data Kaye rce(s) Supporting Document(s) white blood count 5.7 10 4.0-10.0 White Blood Count [place] ([facility]) red blood count 3.11 10 4.00-5.40 Below low normal Red Blood Coun t [place] ([facility]) hemoglobin 8.6 g/dL 12.0-15.5 Below low normal Hemoglobin [place] ( [facility]) hematocrit 26.3 % 36.0-47.0 Below low normal Hematocrit [place] ( [facility]) mean corpuscular volume 84.6 fL 80.0-96.0 Mean Corpusc ular Volume [place] ([facility]) mean corpuscular hemoglobin 27.7 pg 27.0-33.0 Mean Cor puscular Hemoglobin [place] ([facility]) mean corpuscular HGB conc 32.7 g/dL 32.0-36.5 Mean Corpu scular HGB Conc [place] ([facility]) red cell distribution width 15.5 % 11.5-14.5 Above high no rmal Red Cell Distribution Width [place] ([facility]) platelet count, automated 218 10 150-450 Platelet C ount, Automated [place] ([facility]) nucleated red blood cell % 0.0 % 0-0 Nucleated Red Blood Cell % [place] ([facility]) ID Date Data Source [id number] 03/23/2020 06:02:00 AM EST [place] ([facility]) Name Value Range Interpretation Code Description Data Kaye rce(s) Supporting Document(s) acetone/ketone > 46.00 <2.81 Above high normal Acetone/ketone [place] ([facility]) ID Date Data Source [id number] 03/23/2020 06:02:00 AM EST [place] ([facility]) Name Value Range Interpretation Code Description Data Kaye rce(s) Supporting Document(s) glucose, fasting 297 mg/dL 70-100 Above high normal Glucose, Fas ting [place] ([facility]) blood urea nitrogen 8 mg/dL 7-18 Blood Urea Nitro gen [place] ([facility]) creatinine for GFR 1.16 mg/dL 0.55-1.30 Creatinine for GF R [place] ([facility]) glomerular filtration rate > 60.0 >58 Glomerula r Filtration Rate [place] ([facility]) sodium level 134 mEq/L 136-145 Below low normal Sodium Level ATHE NA ([facility]) potassium serum 4.1 mEq/L 3.5-5.1 Potassium Serum ATHE ([facility]) chloride level 103 mEq/L 98-107 Chloride Level [place] ([facility]) carbon dioxide level 19 mEq/L 21-32 Below low normal Carbon Di oxide Level [place] ([facility]) anion gap 12 mEq/L 8-16 Anion Gap [place] ([facility]) calcium level 8.5 mg/dL 8.5-10.1 Calcium Level [place] ( [facility]) AST/SGOT 13 U/L 7-37 AST/SGOT [place] ([facility]) ALT/SGPT 17 U/L 12-78 ALT/SGPT [place] ([facility]) bilirubin,total 0.4 mg/dL 0.2-1.0 Bilirubin,total AT[place] ([facility]) alkaline phosphatase 57 U/L 45-117 Alkaline Phosph atase ROMAN ([facility]) total protein 6.2 gm/dL 6.4-8.2 Below low normal Total Protein AT TRAM ([facility]) albumin 3.4 gm/dL 3.2-5.2 Albumin ROMAN ([facility]) albumin/globulin ratio 1.2-2.2 Albumin/globu gerard Ratio [place] ([facility]) ID Date Data Source [id number] 03/23/2020 06:02:00 AM EST ROMAN ([facility]) Name Value Range Interpretation Code Description Data Kaye rce(s) Supporting Document(s) white blood count 5.7 10 4.0-10.0 White Blood Count ROMAN ([facility]) red blood count 3.11 10 4.00-5.40 Below low normal Red Blood Coun t ROMAN ([facility]) hemoglobin 8.6 g/dL 12.0-15.5 Below low normal Hemoglobin ROMAN ( [facility]) hematocrit 26.3 % 36.0-47.0 Below low normal Hematocrit ROMAN ( [facility]) mean corpuscular volume 84.6 fL 80.0-96.0 Mean Corpusc ular Volume ROMAN ([facility]) mean corpuscular hemoglobin 27.7 pg 27.0-33.0 Mean Cor puscular Hemoglobin ROMAN ([facility]) mean corpuscular HGB conc 32.7 g/dL 32.0-36.5 Mean Corpu scular HGB Conc ROMAN ([facility]) red cell distribution width 15.5 % 11.5-14.5 Above high no rmal Red Cell Distribution Width ROMAN ([facility]) platelet count, automated 218 10 150-450 Platelet C ount, Automated ROMAN ([facility]) nucleated red blood cell % 0.0 % 0-0 Nucleated Red Blood Cell % [place] ([facility]) ID Date Data Source [id number] 03/23/2020 05:08:00 AM EST [place] ([facility]) Name Value Range Interpretation Code Description Data Kaye rce(s) Supporting Document(s) bedside glucose 279 mg/dL 70-105 Above high normal Bedside Gluco se [facility]) ID Date Data Source [id number] 03/23/2020 05:08:00 AM EST [place] ([facility]) Name Value Range Interpretation Code Description Data Kaye rce(s) Supporting Document(s) bedside glucose 279 mg/dL 70-105 Above high normal Bedside Gluco se [place] ([facility]) ID Date Data Source [id number] 03/23/2020 05:08:00 AM EST ROMAN ([facility]) Name Value Range Interpretation Code Description Data Kaye rce(s) Supporting Document(s) bedside glucose 279 mg/dL 70-105 Above high normal Bedside Gluco se [place] ([facility]) ID Date Data Source [id number] 03/23/2020 05:08:00 AM EST ROMAN ([facility]) Name Value Range Interpretation Code Description Data Kaye rce(s) Supporting Document(s) bedside glucose 279 mg/dL 70-105 Above high normal Bedside Gluco se [place] ([facility]) ID Date Data Source [id number] 03/23/2020 05:08:00 AM EST ROMAN ([facility]) Name Value Range Interpretation Code Description Data Kaye rce(s) Supporting Document(s) bedside glucose 279 mg/dL 70-105 Above high normal Bedside Gluco se [place] ([facility]) ID Date Data Source [id number] 03/23/2020 05:08:00 AM EST [place] ([facility]) Name Value Range Interpretation Code Description Data Kaye rce(s) Supporting Document(s) bedside glucose 279 mg/dL 70-105 Above high normal Bedside Gluco se [place] ([facility]) ID Date Data Source [id number] 03/23/2020 02:09:00 AM EST ROMAN ([facility]) Name Value Range Interpretation Code Description Data Kaye rce(s) Supporting Document(s) bedside glucose 198 mg/dL 70-105 Above high normal Bedside Gluco se ROMAN ([facility]) ID Date Data Source [id number] 03/23/2020 02:09:00 AM EST ROMAN [facility]) Name Value Range Interpretation Code Description Data Kaye rce(s) Supporting Document(s) bedside glucose 198 mg/dL 70-105 Above high normal Bedside Gluco se ROMAN ([facility]) ID Date Data Source [id number] 03/23/2020 02:09:00 AM EST ROMAN ([facility]) Name Value Range Interpretation Code Description Data Kaye rce(s) Supporting Document(s) bedside glucose 198 mg/dL 70-105 Above high normal [facility] Date Data Source [id number] 03/23/2020 02:09:00 AM EST [place] ([facility]) Name Value Range Interpretation Code Description Data Kaye rce(s) Supporting Document(s) bedside glucose 198 mg/dL 70-105 Above high normal Bedside Gluco se [place] ([facility]) ID Date Data Source [id number] 03/23/2020 02:09:00 AM EST [place] ([facility]) Name Value Range Interpretation Code Description Data Kaye rce(s) Supporting Document(s) bedside glucose 198 mg/dL 70-105 Above high normal Bedside Gluco se [place] ([facility]) ID Date Data Source [id number] 03/23/2020 02:09:00 AM EST [place] ([facility]) Name Value Range Interpretation Code Description Data Kaye rce(s) Supporting Document(s) bedside glucose 198 mg/dL 70-105 Above high normal Bedside Gluco se [place] ([facility]) ID Date Data Source [id number] 03/22/2020 11:52:00 PM EST [place] ([facility]) Name Value Range Interpretation Code Description Data Kaye rce(s) Supporting Document(s) bedside glucose 176 mg/dL 70-105 Above high normal [facility] ID Date Data Source [id number] 03/22/2020 11:52:00 PM EST [place] ([facility]) Name Value Range Interpretation Code Description Data Kaye rce(s) Supporting Document(s) bedside glucose 176 mg/dL 70-105 Above high normal [facility] ID Date Data Source [id number] 03/22/2020 11:52:00 PM EST ROMAN [facility]) Name Value Range Interpretation Code Description Data Kaye rce(s) Supporting Document(s) bedside glucose 176 mg/dL 70-105 Above high normal Bedside Gluco se [place] ([facility]) ID Date Data Source [id number] 03/22/2020 11:52:00 PM EST [place] ([facility]) Name Value Range Interpretation Code Description Data Kaye rce(s) Supporting Document(s) bedside glucose 176 mg/dL 70-105 Above high normal Bedside Gluco se [place] ([facility]) ID Date Data Source [id number] 03/22/2020 11:52:00 PM EST [place] ([facility]) Name Value Range Interpretation Code Description Data Kaye rce(s) Supporting Document(s) bedside glucose 176 mg/dL 70-105 Above high normal Bedside Gluco se [place] ([facility]) ID Date Data Source [id number] 03/22/2020 11:52:00 PM EST [place] ([facility]) Name Value Range Interpretation Code Description Data Kaye rce(s) Supporting Document(s) bedside glucose 176 mg/dL 70-105 Above high normal Bedside Gluco se [place] ([facility]) ID Date Data Source [id number] 03/22/2020 08:46:00 PM EST [place] ([facility]) Name Value Range Interpretation Code Description Data Kaye rce(s) Supporting Document(s) bedside glucose 209 mg/dL 70-105 Above high normal Bedside Gluco se [place] ([facility]) ID Date Data Source [id number] 03/22/2020 08:46:00 PM EST [place] ([facility]) Name Value Range Interpretation Code Description Data Kaye rce(s) Supporting Document(s) bedside glucose 209 mg/dL 70-105 Above high normal [facility] ID Date Data Source [id number] 03/22/2020 08:46:00 PM EST [place] ([facility]) Name Value Range Interpretation Code Description Data Kaye rce(s) Supporting Document(s) bedside glucose 209 mg/dL 70-105 Above high normal Bedside Gluco se [place] ([facility]) ID Date Data Source [id number] 03/22/2020 08:46:00 PM EST [place] ([facility]) Name Value Range Interpretation Code Description Data Kaye rce(s) Supporting Document(s) bedside glucose 209 mg/dL 70-105 Above high normal Bedside Gluco se [place] ([facility]) ID Date Data Source [id number] 03/22/2020 08:46:00 PM EST [place] ([facility]) Name Value Range Interpretation Code Description Data Kaye rce(s) Supporting Document(s) bedside glucose 209 mg/dL 70-105 Above high normal Bedside Gluco se [place] ([facility]) ID Date Data Source [id number] 03/22/2020 08:46:00 PM EST [place] ([facility]) Name Value Range Interpretation Code Description Data Kaye rce(s) Supporting Document(s) bedside glucose 209 mg/dL 70-105 Above high normal Bedside Gluco se [place] ([facility]) ID Date Data Source [id number] 03/22/2020 04:30:00 PM EST [place] ([facility]) Name Value Range Interpretation Code Description Data Kaye rce(s) Supporting Document(s) bedside glucose 199 mg/dL 70-105 Above high normal [facility] ID Date Data Source [id number] 03/22/2020 04:30:00 PM [facility] Name Value Range Interpretation Code Description Data Kaye rce(s) Supporting Document(s) bedside glucose 199 mg/dL 70-105 Above high normal Bedside Gluco se [place] ([facility]) ID Date Data Source [id number] 03/22/2020 04:30:00 PM EST [place] ([facility]) Name Value Range Interpretation Code Description Data Kaye rce(s) Supporting Document(s) bedside glucose 199 mg/dL 70-105 Above high normal Bedside Gluco se [place] ([facility]) ID Date Data Source [id number] 03/22/2020 04:30:00 PM EST [place] ([facility]) Name Value Range Interpretation Code Description Data Kaye rce(s) Supporting Document(s) bedside glucose 199 mg/dL 70-105 Above high normal Bedside Gluco se [place] ([facility]) ID Date Data Source [id number] 03/22/2020 04:30:00 PM EST [place] ([facility]) Name Value Range Interpretation Code Description Data Kaye rce(s) Supporting Document(s) bedside glucose 199 mg/dL 70-105 Above high normal Bedside Gluco se [place] ([facility]) ID Date Data Source [id number] 03/22/2020 04:30:00 PM EST [place] ([facility]) Name Value Range Interpretation Code Description Data Kaye rce(s) Supporting Document(s) bedside glucose 199 mg/dL 70-105 Above high normal Bedside Gluco se [place] ([facility]) ID Date Data Source [id number] 03/22/2020 11:15:00 AM EST [place] ([facility]) Name Value Range Interpretation Code Description Data Kaye rce(s) Supporting Document(s) bedside glucose 169 mg/dL 70-105 Above high normal Bedside Gluco se [facility]) ID Date Data Source [id number] 03/22/2020 11:15:00 AM EST [place] ([facility]) Name Value Range Interpretation Code Description Data Kaye rce(s) Supporting Document(s) bedside glucose 169 mg/dL 70-105 Above high normal Bedside Gluco se [place] ([facility]) ID Date Data Source [id number] 03/22/2020 11:15:00 AM EST [place] ([facility]) Name Value Range Interpretation Code Description Data Kaye rce(s) Supporting Document(s) bedside glucose 169 mg/dL 70-105 Above high normal Bedside Gluco se [place] ([facility]) ID Date Data Source [id number] 03/22/2020 11:15:00 AM EST [place] ([facility]) Name Value Range Interpretation Code Description Data Kaye rce(s) Supporting Document(s) bedside glucose 169 mg/dL 70-105 Above high normal Bedside Gluco se [place] ([facility]) ID Date Data Source [id number] 03/22/2020 11:15:00 AM EST [place] ([facility]) Name Value Range Interpretation Code Description Data Kaye rce(s) Supporting Document(s) bedside glucose 169 mg/dL 70-105 Above high normal Bedside Gluco se [place] ([facility]) ID Date Data Source [id number] 03/22/2020 11:15:00 AM EST [place] ([facility]) Name Value Range Interpretation Code Description Data Kaye rce(s) Supporting Document(s) bedside glucose 169 mg/dL 70-105 Above high normal [facility] ID Date Data Source [id number] 03/22/2020 08:15:00 AM EST [facility] Name Value Range Interpretation Code Description Data Kaye rce(s) Supporting Document(s) acetone/ketone 25.32 mg/dL <2.81 Above high normal Acetone/keton e [place] ([facility]) ID Date Data Source [id number] 03/22/2020 08:15:00 AM EST [place] ([facility]) Name Value Range Interpretation Code Description Data Kaye rce(s) Supporting Document(s) glucose, fasting 147 mg/dL 70-100 Above high normal Glucose, Fas ting [place] ([facility]) blood urea nitrogen 11 mg/dL 7-18 Blood Urea Nitro gen [place] ([facility]) creatinine for GFR 1.10 mg/dL 0.55-1.30 Creatinine for GF R [place] ([facility]) glomerular filtration rate > 60.0 >58 Glomerula r Filtration Rate [place] ([facility]) sodium level 139 mEq/L 136-145 Sodium Level [place] (No [facility]) chloride level 107 mEq/L 98-107 Chloride Level [place] ([facility]) potassium serum 3.4 mEq/L 3.5-5.1 Below low normal Potassium Seru m [place] ([facility]) carbon dioxide level 22 mEq/L 21-32 Carbon Dioxide Level [place] ([facility]) anion gap 10 mEq/L 8-16 Anion Gap [place] ([facility]) calcium level 8.4 mg/dL 8.5-10.1 Below low normal Calcium Level AT [facility]) AST/SGOT 10 U/L 7-37 AST/SGOT [place] ([facility]) ALT/SGPT 14 U/L 12-78 ALT/SGPT [place] ([facility]) alkaline phosphatase 54 U/L 45-117 Alkaline Phosph atase [place] ([facility]) total protein 5.8 gm/dL 6.4-8.2 Below low normal Total Protein AT [facility]) bilirubin,total 0.6 mg/dL 0.2-1.0 Bilirubin,total [place] ([facility]) albumin 3.1 gm/dL 3.2-5.2 Below low normal Albumin [place] ( [facility]) albumin/globulin ratio 1.2-2.2 Below low normal Albumin /globulin Ratio [place] ([facility]) ID Date Data Source [id number] 03/22/2020 08:15:00 AM EST [place] ([facility]) Name Value Range Interpretation Code Description Data Kaye rce(s) Supporting Document(s) white blood count 5.1 10 4.0-10.0 White Blood Count [place] ([facility]) red blood count 3.24 10 4.00-5.40 Below low normal Red Blood Coun t [place] ([facility]) hemoglobin 8.9 g/dL 12.0-15.5 Below low normal Hemoglobin [place] ( [facility]) hematocrit 27.2 % 36.0-47.0 Below low normal Hematocrit [place] ( [facility]) mean corpuscular hemoglobin 27.5 pg 27.0-33.0 Mean Cor puscular Hemoglobin [place] ([facility]) mean corpuscular volume 84.0 fL 80.0-96.0 Mean Corpusc ular Volume [place] ([facility]) mean corpuscular HGB conc 32.7 g/dL 32.0-36.5 Mean Corpu scular HGB Conc [place] ([facility]) red cell distribution width 15.2 % 11.5-14.5 Above high no rmal Red Cell Distribution Width [place] ([facility]) platelet count, automated 214 10 150-450 Platelet C ount, Automated [place] ([facility]) nucleated red blood cell % 0.0 % 0-0 Nucleated Red Blood Cell % [place] ([facility]) ID Date Data Source [id number] 03/22/2020 08:15:00 AM EST [place] ([facility]) Name Value Range Interpretation Code Description Data Kaye rce(s) Supporting Document(s) acetone/ketone 25.32 mg/dL <2.81 Above high normal Acetone/keton e [facility]) ID Date Data Source [id number] 03/22/2020 08:15:00 AM EST [place] ([facility]) Name Value Range Interpretation Code Description Data Kaye rce(s) Supporting Document(s) glucose, fasting 147 mg/dL 70-100 Above high normal Glucose, Fas ting [place] ([facility]) blood urea nitrogen 11 mg/dL 7-18 Blood Urea Nitro gen [place] ([facility]) creatinine for GFR 1.10 mg/dL 0.55-1.30 Creatinine for GF R [place] ([facility]) glomerular filtration rate > 60.0 >58 Glomerula r Filtration Rate [place] ([facility]) sodium level 139 mEq/L 136-145 Sodium Level [place] (No [facility]) potassium serum 3.4 mEq/L 3.5-5.1 Below low normal Potassium Seru m [place] ([facility]) chloride level 107 mEq/L 98-107 Chloride Level [place] ([facility]) carbon dioxide level 22 mEq/L 21-32 Carbon Dioxide Level [place] ([facility]) anion gap 10 mEq/L 8-16 Anion Gap [place] ([facility]) calcium level 8.4 mg/dL 8.5-10.1 Below low normal Calcium Level AT [facility] ([facility]) AST/SGOT 10 U/L 7-37 AST/SGOT [place] ([facility]) ALT/SGPT 14 U/L 12-78 ALT/SGPT [place] ([facility]) alkaline phosphatase 54 U/L 45-117 Alkaline Phosph atase [place] ([facility]) bilirubin,total 0.6 mg/dL 0.2-1.0 Bilirubin,total [place] ([facility]) total protein 5.8 gm/dL 6.4-8.2 Below low normal Total Protein AT [facility] ([facility]) albumin/globulin ratio 1.2-2.2 Below low normal Albumin /globulin Ratio [place] ([facility]) albumin 3.1 gm/dL 3.2-5.2 Below low normal Albumin [place] ( [facility]) ID Date Data Source [id number] 03/22/2020 08:15:00 AM EST [place] ([facility]) Name Value Range Interpretation Code Description Data Kaye rce(s) Supporting Document(s) white blood count 5.1 10 4.0-10.0 White Blood Count [place] ([facility]) red blood count 3.24 10 4.00-5.40 Below low normal Red Blood Coun t [place] ([facility]) hemoglobin 8.9 g/dL 12.0-15.5 Below low normal Hemoglobin [place] ( [facility]) hematocrit 27.2 % 36.0-47.0 Below low normal Hematocrit [place] ( [facility]) mean corpuscular volume 84.0 fL 80.0-96.0 Mean Corpusc ular Volume [place] ([facility]) mean corpuscular hemoglobin 27.5 pg 27.0-33.0 Mean Cor puscular Hemoglobin [place] ([facility]) mean corpuscular HGB conc 32.7 g/dL 32.0-36.5 Mean Corpu scular HGB Conc [place] ([facility]) red cell distribution width 15.2 % 11.5-14.5 Above high no rmal Red Cell Distribution Width [place] ([facility]) platelet count, automated 214 10 150-450 Platelet C ount, Automated [place] ([facility]) nucleated red blood cell % 0.0 % 0-0 Nucleated Red Blood Cell % [place] ([facility]) ID Date Data Source [id number] 03/22/2020 08:15:00 AM EST [place] ([facility]) Name Value Range Interpretation Code Description Data Kaye rce(s) Supporting Document(s) acetone/ketone 25.32 mg/dL <2.81 Above high normal Acetone/keton e [place] ([facility]) ID Date Data Source [id number] 03/22/2020 08:15:00 AM [facility] Name Value Range Interpretation Code Description Data Kaye rce(s) Supporting Document(s) glucose, fasting 147 mg/dL 70-100 Above high normal Glucose, Fas ting [place] ([facility]) blood urea nitrogen 11 mg/dL 7-18 Blood Urea Nitro gen [place] ([facility]) creatinine for GFR 1.10 mg/dL 0.55-1.30 Creatinine for GF R [place] ([facility]) glomerular filtration rate > 60.0 >58 Glomerula r Filtration Rate [place] ([facility]) sodium level 139 mEq/L 136-145 Sodium Level [place] (No [facility]) potassium serum 3.4 mEq/L 3.5-5.1 Below low normal Potassium Seru m [place] ([facility]) chloride level 107 mEq/L 98-107 Chloride Level [place] ([facility]) carbon dioxide level 22 mEq/L 21-32 Carbon Dioxide Level [place] ([facility]) anion gap 10 mEq/L 8-16 Anion Gap [place] ([facility]) calcium level 8.4 mg/dL 8.5-10.1 Below low normal Calcium Level AT [facility]) ALT/SGPT 14 U/L 12-78 ALT/SGPT [place] ([facility]) AST/SGOT 10 U/L 7-37 AST/SGOT [place] ([facility]) alkaline phosphatase 54 U/L 45-117 Alkaline Phosph atase [place] ([facility]) bilirubin,total 0.6 mg/dL 0.2-1.0 Bil[facility] total protein 5.8 gm/dL 6.4-8.2 Below low normal Total Protein AT [facility]) albumin 3.1 gm/dL 3.2-5.2 Below low normal Albumin [place] ( [facility]) albumin/globulin ratio 1.2-2.2 Below low normal Albumin /globulin Ratio [place] ([facility]) ID Date Data Source [id number] 03/22/2020 08:15:00 AM EST [facility]) Name Value Range Interpretation Code Description Data Kaye rce(s) Supporting Document(s) red blood count 3.24 10 4.00-5.40 Below low normal Red Blood Coun t [place] ([facility]) white blood count 5.1 10 4.0-10.0 White Blood Count [place] ([facility] [facility]) hemoglobin 8.9 g/dL 12.0-15.5 Below low normal Hemoglobin [place] ( [facility]) hematocrit 27.2 % 36.0-47.0 Below low normal Hematocrit [place] ( [facility]) mean corpuscular volume 84.0 fL 80.0-96.0 Mean Corpusc ular Volume [place] ([facility]) mean corpuscular hemoglobin 27.5 pg 27.0-33.0 Mean Cor puscular Hemoglobin [place] ([facility]) mean corpuscular HGB conc 32.7 g/dL 32.0-36.5 Mean Corpu scular HGB Conc [place] ([facility]) red cell distribution width 15.2 % 11.5-14.5 Above high no rmal Red Cell Distribution Width [place] ([facility]) platelet count, automated 214 10 150-450 Platelet C ount, Automated [place] ([facility]) nucleated red blood cell % 0.0 % 0-0 Nucleated Red Blood Cell % [place] ([facility]) ID Date Data Source [id number] 03/22/2020 08:15:00 AM EST [place] ([facility]) Name Value Range Interpretation Code Description Data Kaye rce(s) Supporting Document(s) acetone/ketone 25.32 mg/dL <2.81 Above high normal Acetone/keton e [place] ([facility]) ID Date Data Source [id number] 03/22/2020 08:15:00 AM EST [place] ([facility]) Name Value Range Interpretation Code Description Data Kaye rce(s) Supporting Document(s) glucose, fasting 147 mg/dL 70-100 Above high normal Glucose, Fas ting [place] ([facility]) blood urea nitrogen 11 mg/dL 7-18 Blood Urea Nitro gen [place] ([facility]) creatinine for GFR 1.10 mg/dL 0.55-1.30 Creatinine for GF R [place] ([facility]) glomerular filtration rate > 60.0 >58 Glomerula r Filtration Rate [place] ([facility]) sodium level 139 mEq/L 136-145 Sodium Level [place] ([facility]) potassium serum 3.4 mEq/L 3.5-5.1 Below low normal Potassium Seru m [place] ([facility]) chloride level 107 mEq/L 98-107 Chloride Level [place] ([facility]) carbon dioxide level 22 mEq/L 21-32 Carbon Dioxide Level [place] ([facility]) anion gap 10 mEq/L 8-16 Anion Gap [place] ([facility]) AST/SGOT 10 U/L 7-37 AST/SGOT [place] ([facility]) calcium level 8.4 mg/dL 8.5-10.1 Below low normal Calcium Level AT [facility]) ALT/SGPT 14 U/L 12-78 ALT/SGPT [place] ([facility]) alkaline phosphatase 54 U/L 45-117 Alkaline Phosph atase [place] ([facility]) bilirubin,total 0.6 mg/dL 0.2-1.0 [facility] total protein 5.8 gm/dL 6.4-8.2 Below low normal Total Protein AT [facility]) albumin 3.1 gm/dL 3.2-5.2 Below low normal Albumin [place] ( [facility]) albumin/globulin ratio 1.2-2.2 Below low normal Albumin /globulin Ratio [place] ([facility]) ID Date Data Source [id number] 03/22/2020 08:15:00 AM EST [facility]) Name Value Range Interpretation Code Description Data Kaye rce(s) Supporting Document(s) white blood count 5.1 10 4.0-10.0 White Blood Count [place] ([facility]) red blood count 3.24 10 4.00-5.40 Below low normal Red Blood Coun t [place] ([facility]) hemoglobin 8.9 g/dL 12.0-15.5 Below low normal Hemoglobin [place] ( [facility]) hematocrit 27.2 % 36.0-47.0 Below low normal Hematocrit [place] ( [facility]) mean corpuscular volume 84.0 fL 80.0-96.0 Mean Corpusc ular Volume [place] ([facility]) mean corpuscular hemoglobin 27.5 pg 27.0-33.0 Mean Cor puscular Hemoglobin [place] ([facility]) mean corpuscular HGB conc 32.7 g/dL 32.0-36.5 Mean Corpu scular HGB Conc [place] ([facility]) red cell distribution width 15.2 % 11.5-14.5 Above high no rmal Red Cell Distribution Width [place] ([facility]) platelet count, automated 214 10 150-450 Platelet C ount, Automated [place] ([facility]) nucleated red blood cell % 0.0 % 0-0 Nucleated Red Blood Cell % [place] ([facility]) ID Date Data Source [id number] 03/22/2020 08:15:00 AM EST [place] ([facility]) Name Value Range Interpretation Code Description Data Kaye rce(s) Supporting Document(s) acetone/ketone 25.32 mg/dL <2.81 Above high normal Acetone/keton e [place] ([facility]) ID Date Data Source [id number] 03/22/2020 08:15:00 AM EST [place] ([facility]) Name Value Range Interpretation Code Description Data Kaye rce(s) Supporting Document(s) glucose, fasting 147 mg/dL 70-100 Above high normal Glucose, Fas ting [place] ([facility]) blood urea nitrogen 11 mg/dL 7-18 Blood Urea Nitro gen [place] ([facility]) creatinine for GFR 1.10 mg/dL 0.55-1.30 Creatinine for GF R [place] ([facility]) glomerular filtration rate > 60.0 >58 Glomerula r Filtration Rate [place] ([facility]) sodium level 139 mEq/L 136-145 Sodium Level [place] (No [facility]) potassium serum 3.4 mEq/L 3.5-5.1 Below low normal Potassium Seru m [place] ([facility]) chloride level 107 mEq/L 98-107 Chloride Level [place] ([facility]) carbon dioxide level 22 mEq/L 21-32 Carbon Dioxide Level [place] ([facility]) anion gap 10 mEq/L 8-16 Anion Gap [place] ([facility]) calcium level 8.4 mg/dL 8.5-10.1 Below low normal Calcium Level AT [facility] ([facility]) AST/SGOT 10 U/L 7-37 AST/SGOT [place] ([facility]) ALT/SGPT 14 U/L 12-78 ALT/SGPT [place] ([facility]) alkaline phosphatase 54 U/L 45-117 Alkaline Phosph atase [place] ([facility]) bilirubin,total 0.6 mg/dL 0.2-1.0 Bilirubin,total [place] ([facility]) total protein 5.8 gm/dL 6.4-8.2 Below low normal Total Protein AT [facility]) albumin 3.1 gm/dL 3.2-5.2 Below low normal Albumin [place] ( [facility]) albumin/globulin ratio 1.2-2.2 Below low normal Albumin /globulin Ratio [place] ([facility]) ID Date Data Source [id number] 03/22/2020 08:15:00 AM EST [place] ([facility]) Name Value Range Interpretation Code Description Data Kaye rce(s) Supporting Document(s) white blood count 5.1 10 4.0-10.0 White Blood Count [place] ([facility]) red blood count 3.24 10 4.00-5.40 Below low normal Red Blood Coun t [place] ([facility]) hemoglobin 8.9 g/dL 12.0-15.5 Below low normal Hemoglobin [place] ( [facility]) hematocrit 27.2 % 36.0-47.0 Below low normal Hematocrit [place] ( [facility]) mean corpuscular volume 84.0 fL 80.0-96.0 Mean Corpusc ular Volume [place] ([facility]) mean corpuscular hemoglobin 27.5 pg 27.0-33.0 Mean Cor puscular Hemoglobin [place] ([facility]) mean corpuscular HGB conc 32.7 g/dL 32.0-36.5 Mean Corpu scular HGB Conc [place] ([facility]) red cell distribution width 15.2 % 11.5-14.5 Above high no rmal Red Cell Distribution Width [place] ([facility]) platelet count, automated 214 10 150-450 Platelet C ount, Automated [place] ([facility]) nucleated red blood cell % 0.0 % 0-0 Nucleated Red Blood Cell % [place] ([facility]) ID Date Data Source [id number] 03/22/2020 08:15:00 AM EST [place] ([facility]) Name Value Range Interpretation Code Description Data Kaye rce(s) Supporting Document(s) acetone/ketone 25.32 mg/dL <2.81 Above high normal Acetone/keton e [place] ([facility]) ID Date Data Source [id number] 03/22/2020 08:15:00 AM EST [facility]) Name Value Range Interpretation Code Description Data Kaye rce(s) Supporting Document(s) glucose, fasting 147 mg/dL 70-100 Above high normal Glucose, Fas ting [place] ([facility]) blood urea nitrogen 11 mg/dL 7-18 Blood Urea Nitro gen [place] ([facility]) creatinine for GFR 1.10 mg/dL 0.55-1.30 Creatinine for GF R [place] ([facility]) glomerular filtration rate > 60.0 >58 Glomerula r Filtration Rate [place] ([facility]) sodium level 139 mEq/L 136-145 Sodium Level [place] (No [facility]) potassium serum 3.4 mEq/L 3.5-5.1 Below low normal Potassium Seru m [place] ([facility]) chloride level 107 mEq/L 98-107 Chloride Level [place] ([facility]) carbon dioxide level 22 mEq/L 21-32 Carbon Dioxide Level [place] ([facility]) anion gap 10 mEq/L 8-16 Anion Gap [place] ([facility]) calcium level 8.4 mg/dL 8.5-10.1 Below low normal Calcium Level AT [facility] ([facility]) AST/SGOT 10 U/L 7-37 AST/SGOT [place] ([facility]) ALT/SGPT 14 U/L 12-78 ALT/SGPT [place] ([facility]) bilirubin,total 0.6 mg/dL 0.2-1.0 [facility] alkaline phosphatase 54 U/L 45-117 Alkaline Phosph atase [place] ([facility]) total protein 5.8 gm/dL 6.4-8.2 Below low normal Total Protein AT [facility] ([facility]) albumin 3.1 gm/dL 3.2-5.2 Below low normal Albumin [place] ( [facility]) albumin/globulin ratio 1.2-2.2 Below low normal Albumin /globulin Ratio [place] ([facility]) ID Date Data Source [id number] 03/22/2020 08:15:00 AM EST [place] ([facility]) Name Value Range Interpretation Code Description Data Kaye rce(s) Supporting Document(s) white blood count 5.1 10 4.0-10.0 White Blood Count [place] ([facility]) red blood count 3.24 10 4.00-5.40 Below low normal Red Blood Coun t [place] ([facility]) hemoglobin 8.9 g/dL 12.0-15.5 Below low normal Hemoglobin [place] ( [facility]) hematocrit 27.2 % 36.0-47.0 Below low normal Hematocrit [place] ( [facility]) mean corpuscular volume 84.0 fL 80.0-96.0 Mean Corpusc ular Volume [place] ([facility]) mean corpuscular hemoglobin 27.5 pg 27.0-33.0 Mean Cor puscular Hemoglobin [place] ([facility]) mean corpuscular HGB conc 32.7 g/dL 32.0-36.5 Mean Corpu scular HGB Conc [place] ([facility]) red cell distribution width 15.2 % 11.5-14.5 Above high no rmal Red Cell Distribution Width [place] ([facility]) platelet count, automated 214 10 150-450 Platelet C ount, Automated [place] ([facility]) nucleated red blood cell % 0.0 % 0-0 Nucleated Red Blood Cell % [place] ([facility]) ID Date Data Source [id number] 03/22/2020 07:45:00 AM EST [place] ([facility]) Name Value Range Interpretation Code Description Data Kaye rce(s) Supporting Document(s) bedside glucose 99 mg/dL 70-105 Bedside Glucose [place] ([facility]) ID Date Data Source [id number] 03/22/2020 07:45:00 AM EST [facility]) Name Value Range Interpretation Code Description Data Kaye rce(s) Supporting Document(s) bedside glucose 99 mg/dL 70-105 Bedside Glucose [place] ([facility]) ID Date Data Source [id number] 03/22/2020 07:45:00 AM EST [place] ([facility]) Name Value Range Interpretation Code Description Data Kaye rce(s) Supporting Document(s) bedside glucose 99 mg/dL 70-105 Bedside Glucose [place] ([facility]) ID Date Data Source [id number] 03/22/2020 07:45:00 [facility] Name Value Range Interpretation Code Description Data Kaye rce(s) Supporting Document(s) bedside glucose 99 mg/dL 70-105 Bedside Glucose [place] ([facility]) ID Date Data Source [id number] 03/22/2020 07:45:00 AM EST [place] ([facility]) Name Value Range Interpretation Code Description Data Kaye rce(s) Supporting Document(s) bedside glucose 99 mg/dL 70-105 Bedside Glucose [facility] [place] ([facility]) ID Date Data Source [id number] 03/22/2020 07:45:00 AM EST [place] ([facility]) Name Value Range Interpretation Code Description Data Kaye rce(s) Supporting Document(s) bedside glucose 99 mg/dL 70-105 Bedside Glucose [place] ([facility]) ID Date Data Source [id number] 03/22/2020 06:55:00 AM EST [place] ([facility]) Name Value Range Interpretation Code Description Data Kaye rce(s) Supporting Document(s) bedside glucose 45 mg/dL 70-105 Below low normal Bedside Glucos e [place] ([facility]) ID Date Data Source [id number] 03/22/2020 06:55:00 AM EST [place] ([facility]) Name Value Range Interpretation Code Description Data Kaye rce(s) Supporting Document(s) bedside glucose 45 mg/dL 70-105 Below low normal Bedside Glucos e [place] ([facility]) ID Date Data Source [id number] 03/22/2020 06:55:00 AM EST [place] ([facility]) Name Value Range Interpretation Code Description Data Kaye rce(s) Supporting Document(s) bedside glucose 45 mg/dL 70-105 Below low normal Bedside Glucos e [place] ([facility]) ID Date Data Source [id number] 03/22/2020 06:55:00 AM EST [place] ([facility]) Name Value Range Interpretation Code Description Data Kaye rce(s) Supporting Document(s) bedside glucose 45 mg/dL 70-105 Below low normal Bedside Glucos e [place] ([facility]) ID Date Data Source [id number] 03/22/2020 06:55:00 AM EST [place] ([facility]) Name Value Range Interpretation Code Description Data Kaye rce(s) Supporting Document(s) bedside glucose 45 mg/dL 70-105 Below low normal Bedside Glucos e [place] ([facility]) ID Date Data Source [id number] 03/22/2020 06:55:00 AM EST [place] ([facility]) Name Value Range Interpretation Code Description Data Kaye rce(s) Supporting Document(s) bedside glucose 45 mg/dL 70-105 Below low normal Bedside Glucos e [place] ([facility]) ID Date Data Source [id number] 03/21/2020 10:31:00 PM EST [place] ([facility]) Name Value Range Interpretation Code Description Data Kaye rce(s) Supporting Document(s) bedside glucose 104 mg/dL 70-105 Bedside Glucose [place] ([facility]) ID Date Data Source [id number] 03/21/2020 10:31:00 PM EST [place] ([facility]) Name Value Range Interpretation Code Description Data Kaye rce(s) Supporting Document(s) bedside glucose 104 mg/dL 70-105 Bedside Glucose [place] ([facility]) ID Date Data Source [id number] 03/21/2020 10:31:00 PM EST [place] ([facility]) Name Value Range Interpretation Code Description Data Kaye rce(s) Supporting Document(s) bedside glucose 104 mg/dL 70-105 Bedside Glucose [place] ([facility]) ID Date Data Source [id number] 03/21/2020 10:31:00 PM EST [place] ([facility]) Name Value Range Interpretation Code Description Data Kaye rce(s) Supporting Document(s) bedside glucose 104 mg/dL 70-105 Bedside Glucose [facility] [place] ([facility]) ID Date Data Source [id number] 03/21/2020 10:31:00 PM EST [place] ([facility]) Name Value Range Interpretation Code Description Data Kaye rce(s) Supporting Document(s) bedside glucose 104 mg/dL 70-105 Bedside Glucose [place] ([facility]) ID Date Data Source [id number] 03/21/2020 10:31:00 PM EST [place] ([facility]) Name Value Range Interpretation Code Description Data Kaye rce(s) Supporting Document(s) bedside glucose 104 mg/dL 70-105 Bedside Glucose [place] ([facility]) ID Date Data Source [id number] 03/21/2020 09:57:00 PM EST [place] ([facility]) Name Value Range Interpretation Code Description Data Kaye rce(s) Supporting Document(s) bedside glucose 39 mg/dL 70-105 Below low normal Bedside Glucos e [place] ([facility]) ID Date Data Source [id number] 03/21/2020 09:57:00 PM EST [place] ([facility]) Name Value Range Interpretation Code Description Data Kaye rce(s) Supporting Document(s) bedside glucose 39 mg/dL 70-105 Below low normal Bedside Glucos e [place] ([facility]) ID Date Data Source [id number] 03/21/2020 09:57:00 PM EST [place] ([facility]) Name Value Range Interpretation Code Description Data Kaye rce(s) Supporting Document(s) bedside glucose 39 mg/dL 70-105 Below low normal Bedside Glucos e [place] ([facility]) ID Date Data Source [id number] 03/21/2020 09:57:00 PM EST [place] ([facility]) Name Value Range Interpretation Code Description Data Kaye rce(s) Supporting Document(s) bedside glucose 39 mg/dL 70-105 Below low normal Bedside Glucos e [place] ([facility]) ID Date Data Source [id number] 03/21/2020 09:57:00 PM EST [place] ([facility]) Name Value Range Interpretation Code Description Data Kaye rce(s) Supporting Document(s) bedside glucose 39 mg/dL 70-105 Below low normal Bedside Glucos e [place] ([facility]) ID Date Data Source [id number] 03/21/2020 09:57:00 PM EST [place] ([facility]) Name Value Range Interpretation Code Description Data Kaye rce(s) Supporting Document(s) bedside glucose 39 mg/dL 70-105 Below low normal Bedside Glucos e [place] ([facility]) ID Date Data Source [id number] 03/21/2020 09:18:00 PM EST [place] ([facility]) Name Value Range Interpretation Code Description Data Kaye rce(s) Supporting Document(s) bedside glucose 42 mg/dL 70-105 Below low normal Bedside Glucos e [place] ([facility]) ID Date Data Source [id number] 03/21/2020 09:18:00 PM EST [place] ([facility]) Name Value Range Interpretation Code Description Data Kaye rce(s) Supporting Document(s) bedside glucose 42 mg/dL 70-105 Below low normal Bedside Glucos e [place] ([facility]) ID Date Data Source [id number] 03/21/2020 09:18:00 [facility] Name Value Range Interpretation Code Description Data Kaye rce(s) Supporting Document(s) bedside glucose 42 mg/dL 70-105 Below low normal Bedside Glucos e [place] ([facility]) ID Date Data Source [id number] 03/21/2020 09:18:00 PM EST [place] ([facility]) Name Value Range Interpretation Code Description Data Kaye rce(s) Supporting Document(s) bedside glucose 42 mg/dL 70-105 Below low normal Bedside Glucos e [place] ([facility]) ID Date Data Source [id number] 03/21/2020 09:18:00 PM EST [place] ([facility]) Name Value Range Interpretation Code Description Data Kaye rce(s) Supporting Document(s) bedside glucose 42 mg/dL 70-105 Below low normal Bedside Glucos e [place] ([facility]) ID Date Data Source [id number] 03/21/2020 09:18:00 PM EST [place] ([facility]) Name Value Range Interpretation Code Description Data Kaye rce(s) Supporting Document(s) bedside glucose 42 mg/dL 70-105 Below low normal Bedside Glucos e [place] ([facility]) ID Date Data Source [id number] 03/21/2020 05:46:00 PM EST [place] ([facility]) Name Value Range Interpretation Code Description Data Kaye rce(s) Supporting Document(s) bedside glucose 110 mg/dL 70-105 Above high normal Bedside Gluco se [place] ([facility]) ID Date Data Source [id number] 03/21/2020 05:46:00 PM EST [place] ([facility]) Name Value Range Interpretation Code Description Data Kaye rce(s) Supporting Document(s) bedside glucose 110 mg/dL 70-105 Above high normal Bedside Gluco se [place] ([facility]) ID Date Data Source [id number] 03/21/2020 05:46:00 PM EST [place] ([facility]) Name Value Range Interpretation Code Description Data Kaye rce(s) Supporting Document(s) bedside glucose 110 mg/dL 70-105 Above high normal Bedside Gluco se [place] ([facility]) ID Date Data Source [id number] 03/21/2020 05:46:00 PM EST [place] ([facility]) Name Value Range Interpretation Code Description Data Kaye rce(s) Supporting Document(s) bedside glucose 110 mg/dL 70-105 Above high normal Bedside Gluco se [place] ([facility]) ID Date Data Source [id number] 03/21/2020 05:46:00 PM EST [place] ([facility]) Name Value Range Interpretation Code Description Data Kaye rce(s) Supporting Document(s) bedside glucose 110 mg/dL 70-105 Above high normal Bedside Gluco se [place] ([facility]) ID Date Data Source [id number] 03/21/2020 05:46:00 PM EST [place] ([facility]) Name Value Range Interpretation Code Description Data Kaye rce(s) Supporting Document(s) bedside glucose 110 mg/dL 70-105 Above high normal Bedside Gluco se [place] ([facility]) ID Date Data Source [id number] 03/21/2020 05:40:00 PM EST ROMAN ([facility]) Name Value Range Interpretation Code Description Data Kaye rce(s) Supporting Document(s) bedside glucose confirmation 117 mg/dL less than 200 Bedside Glucose Confirmation [facility]) ID Date Data Source [id number] 03/21/2020 05:40:00 PM EST ROMAN ([facility]) Name Value Range Interpretation Code Description Data Kaye rce(s) Supporting Document(s) bedside glucose confirmation 117 mg/dL less than 200 Bedside Glucose Confirmation ROMAN ([facility]) ID Date Data Source [id number] 03/21/2020 05:40:00 PM EST ROMAN ([facility]) Name Value Range Interpretation Code Description Data Kaye rce(s) Supporting Document(s) bedside glucose confirmation 117 mg/dL less than 200 Bedside Glucose Confirmation [place] ([facility]) ID Date Data Source [id number] 03/21/2020 05:40:00 PM EST ROMAN ([facility]) Name Value Range Interpretation Code Description Data Kaye rce(s) Supporting Document(s) bedside glucose confirmation 117 mg/dL less than 200 Bedside Glucose Confirmation [place] ([facility]) ID Date Data Source [id number] 03/21/2020 05:40:00 PM EST ROMAN ([facility]) Name Value Range Interpretation Code Description Data Kaye rce(s) Supporting Document(s) bedside glucose confirmation 117 mg/dL less than 200 Bedside Glucose Confirmation ROM[place] ([facility]) ID Date Data Source [id number] 03/21/2020 05:40[facility] Name Value Range Interpretation Code Description Data Kaye rce(s) Supporting Document(s) bedside glucose confirmation 117 mg/dL less than 200 [facility] ID Date Data Source [id number] 03/21/2020 05:22:00 PM EST ROMAN ([facility]) Name Value Range Interpretation Code Description Data Kaye rce(s) Supporting Document(s) bedside glucose 26 mg/dL 70-105 Below low normal [facility] ID Date Data Source [id number] 03/21/2020 05:22:00 PM EST ROMAN ([facility]) Name Value Range Interpretation Code Description Data Kaye rce(s) Supporting Document(s) bedside glucose 26 mg/dL 70-105 Below low normal Bedside Glucos e ROMAN ([facility]) ID Date Data Source [id number] 03/21/2020 05:22:00 PM EST [place] ([facility]) Name Value Range Interpretation Code Description Data Kaye rce(s) Supporting Document(s) bedside glucose 26 mg/dL 70-105 Below low normal Bedside Glucos e ROMAN ([facility]) ID Date Data Source [id number] 03/21/2020 05:22:00 PM EST [place]AN ([facility]) Name Value Range Interpretation Code Description Data Kaye rce(s) Supporting Document(s) bedside glucose 26 mg/dL 70-105 Below low normal Bedside Glucos e ROMAN ([facility]) ID Date Data Source [id number] 03/21/2020 05:22:00 PM EST [place] ([facility]) Name Value Range Interpretation Code Description Data Kaye rce(s) Supporting Document(s) bedside glucose 26 mg/dL 70-105 Below low normal Bedside Glucos e [place] ([facility]) ID Date Data Source [id number] 03/21/2020 05:22:00 PM EST [place] ([facility]) Name Value Range Interpretation Code Description Data Kaye rce(s) Supporting Document(s) bedside glucose 26 mg/dL 70-105 Below low normal Bedside Glucos e ROMAN ([facility]) ID Date Data Source [id number] 03/21/2020 05:13:00 PM EST [place] ([facility]) Name Value Range Interpretation Code Description Data Kaye rce(s) Supporting Document(s) bedside glucose 37 mg/dL 70-105 Below low normal Bedside Glucos e [place] ([facility]) ID Date Data Source [id number] 03/21/2020 05:13:00 PM EST [place] ([facility]) Name Value Range Interpretation Code Description Data Kaye rce(s) Supporting Document(s) bedside glucose 37 mg/dL 70-105 Below low normal Bedside Glucos e [place] ([facility]) ID Date Data Source [id number] 03/21/2020 05:13:00 PM EST [place] ([facility]) Name Value Range Interpretation Code Description Data Kaye rce(s) Supporting Document(s) bedside glucose 37 mg/dL 70-105 Below low normal Bedside Glucos e [place] ([facility]) ID Date Data Source [id number] 03/21/2020 05:13:00 PM EST [place] ([facility]) Name Value Range Interpretation Code Description Data Kaye rce(s) Supporting Document(s) bedside glucose 37 mg/dL 70-105 Below low normal Bedside Glucos e [place] ([facility]) ID Date Data Source [id number] 03/21/2020 05:13:00 PM EST [place] ([facility]) Name Value Range Interpretation Code Description Data Kaye rce(s) Supporting Document(s) bedside glucose 37 mg/dL 70-105 Below low normal Bedside Glucos e [place] ([facility]) ID Date Data Source [id number] 03/21/2020 05:13:00 PM EST [place] ([facility]) Name Value Range Interpretation Code Description Data Kaye rce(s) Supporting Document(s) bedside glucose 37 mg/dL 70-105 Below low normal Bedside Glucos e [place] ([facility]) ID Date Data Source [id number] 03/21/2020 05:05:00 PM EST [place] ([facility]) Name Value Range Interpretation Code Description Data Kaye rce(s) Supporting Document(s) bedside glucose 32 mg/dL 70-105 Below low normal Bedside Glucos e [place] ([facility]) ID Date Data Source [id number] 03/21/2020 05:05:00 PM EST [place] ([facility]) Name Value Range Interpretation Code Description Data Kaye rce(s) Supporting Document(s) bedside glucose 32 mg/dL 70-105 Below low normal Bedside Glucos e [place] ([facility]) ID Date Data Source [id number] 03/21/2020 05:05:00 PM EST [place] ([facility]) Name Value Range Interpretation Code Description Data Kaye rce(s) Supporting Document(s) bedside glucose 32 mg/dL 70-105 Below low normal Bedside Glucos e [place] ([facility]) ID Date Data Source [id number] 03/21/2020 05:05:00 PM EST [place] ([facility]) Name Value Range Interpretation Code Description Data Kaye rce(s) Supporting Document(s) bedside glucose 32 mg/dL 70-105 Below low normal Bedside Glucos e [place] ([facility]) ID Date Data Source [id number] 03/21/2020 05:05:00 PM EST [place] ([facility]) Name Value Range Interpretation Code Description Data Kaye rce(s) Supporting Document(s) bedside glucose 32 mg/dL 70-105 Below low normal Bedside Glucos e [place] ([facility]) ID Date Data Source [id number] 03/21/2020 05:05:00 PM EST [place] ([facility]) Name Value Range Interpretation Code Description Data Kaye rce(s) Supporting Document(s) bedside glucose 32 mg/dL 70-105 Below low normal Bedside Glucos e [place] ([facility]) ID Date Data Source [id number] 03/21/2020 12:13:00 PM EST [place] ([facility]) Name Value Range Interpretation Code Description Data Kaye rce(s) Supporting Document(s) bedside glucose 157 mg/dL 70-105 Above high normal Bedside Gluco se [place] ([facility]) ID Date Data Source [id number] 03/21/2020 12:13:00 PM EST [place] ([facility]) Name Value Range Interpretation Code Description Data Kaye rce(s) Supporting Document(s) bedside glucose 157 mg/dL 70-105 Above high normal Bedside Gluco se [place] ([facility]) ID Date Data Source [id number] 03/21/2020 12:13:00 PM EST [place] ([facility]) Name Value Range Interpretation Code Description Data Kaye rce(s) Supporting Document(s) bedside glucose 157 mg/dL 70-105 Above high normal Bedside Gluco se [place] ([facility]) ID Date Data Source [id number] 03/21/2020 12:13:00 PM EST [place] ([facility]) Name Value Range Interpretation Code Description Data Kaye rce(s) Supporting Document(s) bedside glucose 157 mg/dL 70-105 Above high normal Bedside Gluco se [place] ([facility]) ID Date Data Source [id number] 03/21/2020 12:13:00 PM EST [place] ([facility]) Name Value Range Interpretation Code Description Data Kaye rce(s) Supporting Document(s) bedside glucose 157 mg/dL 70-105 Above high normal Bedside Gluco se [place] ([facility]) ID Date Data Source [id number] 03/21/2020 12:13:00 PM EST [place] ([facility]) Name Value Range Interpretation Code Description Data Kaye rce(s) Supporting Document(s) bedside glucose 157 mg/dL 70-105 Above high normal Bedside Gluco se [place] ([facility]) ID Date Data Source [id number] 03/21/2020 06:05:00 AM EST [place] ([facility]) Name Value Range Interpretation Code Description Data Kaye rce(s) Supporting Document(s) acetone/ketone > 46.00 <2.81 Above high normal Acetone/ketone [place] ([facility]) ID Date Data Source [id number] 03/21/2020 06:05:00 AM EST [place] ([facility]) Name Value Range Interpretation Code Description Data Kaye rce(s) Supporting Document(s) glucose, fasting 380 mg/dL 70-100 Above high normal Glucose, Fas ting [place] ([facility]) blood urea nitrogen 17 mg/dL 7-18 Blood Urea Nitro gen [place] ([facility]) creatinine for GFR 1.43 mg/dL 0.55-1.30 Above high normal Creatinine for GFR [place] ([facility]) glomerular filtration rate >58 Below low normal Beata merular Filtration Rate [place] ([facility]) potassium serum 4.3 mEq/L 3.5-5.1 Potassium Serum [place] ([facility]) sodium level 133 mEq/L 136-145 Below low normal Sodium Level [place] ([facility]) chloride level 104 mEq/L 98-107 Chloride Level [place] ([facility]) carbon dioxide level 14 mEq/L 21-32 Below low normal Carbon Di oxide Level [place] ([facility]) anion gap 15 mEq/L 8-16 Anion Gap [place] ([facility]) calcium level 8.8 mg/dL 8.5-10.1 Calcium Level [place] ( [facility]) AST/SGOT 9 U/L 7-37 AST/SGOT [place] ([facility]) alkaline phosphatase 68 U/L 45-117 Alkaline Phosph atase [place] ([facility]) ALT/SGPT 14 U/L 12-78 ALT/SGPT [place] ([facility]) bilirubin,total 0.5 mg/dL 0.2-1.0 Bilirubin,total [place] ([facility]) total protein 6.4 gm/dL 6.4-8.2 Total Protein [place] ( [facility]) albumin 3.3 gm/dL 3.2-5.2 Albumin [place] ([facility]) albumin/globulin ratio 1.2-2.2 Below low normal Albumin /globulin Ratio [place] ([facility]) ID Date Data Source [id number] 03/21/2020 06:05:00 AM EST ROMAN ([facility]) Name Value Range Interpretation Code Description Data Kaye rce(s) Supporting Document(s) acetone/ketone > 46.00 <2.81 Above high normal Acetone/ketone [place] ([facility]) ID Date Data Source [id number] 03/21/2020 06:05:00 AM EST [place] ([facility]) Name Value Range Interpretation Code Description Data Kaye rce(s) Supporting Document(s) glucose, fasting 380 mg/dL 70-100 Above high normal Glucose, Fas ting [place] ([facility]) blood urea nitrogen 17 mg/dL 7-18 Blood Urea Nitro gen [place] ([facility]) creatinine for GFR 1.43 mg/dL 0.55-1.30 Above high normal Creatinine for GFR [place] ([facility]) glomerular filtration rate >58 Below low normal Beata merular Filtration Rate [place] ([facility]) sodium level 133 mEq/L 136-145 Below low normal Sodium Level [place] ([facility]) potassium serum 4.3 mEq/L 3.5-5.1 Potassium Serum [place] ([facility]) chloride level 104 mEq/L 98-107 Chloride Level [place] ([facility]) carbon dioxide level 14 mEq/L 21-32 Below low normal Carbon Di oxide Level [place] ([facility]) anion gap 15 mEq/L 8-16 Anion Gap [place] ([facility]) calcium level 8.8 mg/dL 8.5-10.1 Calcium Level [place] ( [facility]) AST/SGOT 9 U/L 7-37 AST/SGOT [place] ([facility]) ALT/SGPT 14 U/L 12-78 ALT/SGPT [place] ([facility]) alkaline phosphatase 68 U/L 45-117 Alkaline Phosph atase [place] ([facility]) bilirubin,total 0.5 mg/dL 0.2-1.0 Bilirubin,total [place] ([facility]) total protein 6.4 gm/dL 6.4-8.2 Total Protein [place] ( [facility]) albumin 3.3 gm/dL 3.2-5.2 Albumin [place] ([facility]) albumin/globulin ratio 1.2-2.2 Below low normal Albumin /globulin Ratio [place] ([facility]) ID Date Data Source [id number] 03/21/2020 06:05:00 AM EST [place] ([facility]) Name Value Range Interpretation Code Description Data Kaye rce(s) Supporting Document(s) acetone/ketone > 46.00 <2.81 Above high normal Acetone/ketone [place] ([facility]) ID Date Data Source [id number] 03/21/2020 06:05:00 AM EST [place] ([facility]) Name Value Range Interpretation Code Description Data Kaye rce(s) Supporting Document(s) glucose, fasting 380 mg/dL 70-100 Above high normal Glucose, Fas ting [place] ([facility]) blood urea nitrogen 17 mg/dL 7-18 Blood Urea Nitro gen [place] ([facility]) creatinine for GFR 1.43 mg/dL 0.55-1.30 Above high normal Creatinine for GFR [place] ([facility]) glomerular filtration rate >58 Below low normal Beata merular Filtration Rate [place] ([facility]) sodium level 133 mEq/L 136-145 Below low normal Sodium Level [place] ([facility]) potassium serum 4.3 mEq/L 3.5-5.1 Potassium Serum [place] [place] ([facility]) chloride level 104 mEq/L 98-107 Chloride Level [place] ([facility]) carbon dioxide level 14 mEq/L 21-32 Below low normal Carbon Di oxide Level [place] ([facility]) anion gap 15 mEq/L 8-16 Anion Gap [place] ([facility]) calcium level 8.8 mg/dL 8.5-10.1 Calcium Level [place] ( [facility]) AST/SGOT 9 U/L 7-37 AST/SGOT [place] ([facility]) ALT/SGPT 14 U/L 12-78 ALT/SGPT [place] ([facility]) bilirubin,total 0.5 mg/dL 0.2-1.0 Bilirubin,total [facility] ([facility]) alkaline phosphatase 68 U/L 45-117 Alkaline Phosph atase [place] ([facility]) total protein 6.4 gm/dL 6.4-8.2 Total Protein [place] ( [facility]) albumin 3.3 gm/dL 3.2-5.2 Albumin [place] ([facility]) albumin/globulin ratio 1.2-2.2 Below low normal Albumin /globulin Ratio [place] ([facility]) ID Date Data Source [id number] 03/21/2020 06:05:00 AM EST [place] ([facility]) Name Value Range Interpretation Code Description Data Kaye rce(s) Supporting Document(s) acetone/ketone > 46.00 <2.81 Above high normal Acetone/ketone [place] ([facility]) ID Date Data Source [id number] 03/21/2020 06:05:00 AM EST [place] ([facility]) Name Value Range Interpretation Code Description Data Kaye rce(s) Supporting Document(s) glucose, fasting 380 mg/dL 70-100 Above high normal Glucose, Fas ting [place] ([facility]) blood urea nitrogen 17 mg/dL 7-18 Blood Urea Nitro gen [place] ([facility]) creatinine for GFR 1.43 mg/dL 0.55-1.30 Above high normal Creatinine for GFR [place] ([facility]) glomerular filtration rate >58 Below low normal Beata merular Filtration Rate [place] ([facility]) sodium level 133 mEq/L 136-145 Below low normal Sodium Level [place] NA ([facility]) chloride level 104 mEq/L 98-107 Chloride Level [place] ([facility]) potassium serum 4.3 mEq/L 3.5-5.1 Potassium Serum [facility] NA ([facility]) carbon dioxide level 14 mEq/L 21-32 Below low normal Carbon Di oxide Level [place] ([facility]) anion gap 15 mEq/L 8-16 Anion Gap [place] ([facility]) calcium level 8.8 mg/dL 8.5-10.1 Calcium Level [place] ( [facility]) AST/SGOT 9 U/L 7-37 AST/SGOT [place] ([facility]) ALT/SGPT 14 U/L 12-78 ALT/SGPT [place] ([facility]) alkaline phosphatase 68 U/L 45-117 Alkaline Phosph atase [place] ([facility]) bilirubin,total 0.5 mg/dL 0.2-1.0 Bilirubin,total [place] ([facility]) total protein 6.4 gm/dL 6.4-8.2 Total Protein [place] ( [facility]) albumin 3.3 gm/dL 3.2-5.2 Albumin [place] ([facility]) albumin/globulin ratio 1.2-2.2 Below low normal Albumin /globulin Ratio [facility] ([facility]) ID Date Data Source [id number] 03/21/2020 06:05:00 AM EST [place] ([facility]) Name Value Range Interpretation Code Description Data Kaye rce(s) Supporting Document(s) acetone/ketone > 46.00 <2.81 Above high normal Acetone/ketone [place] ([facility]) ID Date Data Source [id number] 03/21/2020 06:05:00 AM EST [place] ([facility]) Name Value Range Interpretation Code Description Data Kaye rce(s) Supporting Document(s) glucose, fasting 380 mg/dL 70-100 Above high normal Glucose, Fas ting [place] ([facility]) blood urea nitrogen 17 mg/dL 7-18 Blood Urea Nitro gen [place] ([facility]) creatinine for GFR 1.43 mg/dL 0.55-1.30 Above high normal Creatinine for GFR [place] ([facility]) glomerular filtration rate >58 Below low normal Beata merular Filtration Rate [place] ([facility]) sodium level 133 mEq/L 136-145 Below low normal Sodium Level [facility] ([facility]) potassium serum 4.3 mEq/L 3.5-5.1 Potassium Serum [facility] ([facility]) chloride level 104 mEq/L 98-107 Chloride Level [place] ([facility]) carbon dioxide level 14 mEq/L 21-32 Below low normal Carbon Di oxide Level [place] ([facility]) anion gap 15 mEq/L 8-16 Anion Gap [place] ([facility]) calcium level 8.8 mg/dL 8.5-10.1 Calcium Level [place] ( [facility]) AST/SGOT 9 U/L 7-37 AST/SGOT [place] ([facility]) ALT/SGPT 14 U/L 12-78 ALT/SGPT [place] ([facility]) alkaline phosphatase 68 U/L 45-117 Alkaline Phosph atase [place] ([facility]) bilirubin,total 0.5 mg/dL 0.2-1.0 Bilirubin,total ATHE NA ([facility]) total protein 6.4 gm/dL 6.4-8.2 Total Protein [place] ( [facility]) albumin 3.3 gm/dL 3.2-5.2 Albumin [facility] ([facility]) albumin/globulin ratio 1.2-2.2 Below low normal Albumin /globulin Ratio [facility] ([facility]) ID Date Data Source [id number] 03/21/2020 06:05:00 AM EST [place] ([facility]) Name Value Range Interpretation Code Description Data Kaye rce(s) Supporting Document(s) acetone/ketone > 46.00 <2.81 Above high normal Acetone/ketone [place] ([facility]) ID Date Data Source [id number] 03/21/2020 06:05:00 AM EST [place] ([facility]) Name Value Range Interpretation Code Description Data Kaye rce(s) Supporting Document(s) glucose, fasting 380 mg/dL 70-100 Above high normal Glucose, Fas ting [facility] ([facility]) blood urea nitrogen 17 mg/dL 7-18 Blood Urea Nitro gen [place] ([facility]) creatinine for GFR 1.43 mg/dL 0.55-1.30 Above high normal Creatinine for GFR [facility] ([facility]) glomerular filtration rate >58 Below low normal Beata merular Filtration Rate [place] ([facility]) sodium level 133 mEq/L 136-145 Below low normal Sodium Level ATHE ([facility]) potassium serum 4.3 mEq/L 3.5-5.1 Potassium Serum ATHE ([facility]) chloride level 104 mEq/L 98-107 Chloride Level [place] ([facility]) carbon dioxide level 14 mEq/L 21-32 Below low normal Carbon Di oxide Level [facility] ([facility]) anion gap 15 mEq/L 8-16 Anion Gap [facility] ([facility]) calcium level 8.8 mg/dL 8.5-10.1 Calcium Level [facility] ( [facility]) AST/SGOT 9 U/L 7-37 AST/SGOT [facility] ([facility]) ALT/SGPT 14 U/L 12-78 ALT/SGPT [facility] ([facility]) alkaline phosphatase 68 U/L 45-117 Alkaline Phosph atase [facility] ([facility]) bilirubin,total 0.5 mg/dL 0.2-1.0 Bilirubin,total ATHE ([facility]) albumin 3.3 gm/dL 3.2-5.2 Albumin [place] ([facility]) total protein 6.4 gm/dL 6.4-8.2 Total Protein [facility] ( [facility]) albumin/globulin ratio 1.2-2.2 Below low normal Albumin /globulin Ratio ROMAN ([facility]) ID Date Data Source [id number] 03/20/2020 10:57:00 PM EST [place] ([facility]) Name Value Range Interpretation Code Description Data Kaye rce(s) Supporting Document(s) bedside glucose 204 mg/dL 70-105 Above high normal Bedside Gluco se [facility]AN ([facility]) ID Date Data Source [id number] 03/20/2020 10:57:00 PM EST [place] [place] ([facility]) Name Value Range Interpretation Code Description Data Kaye rce(s) Supporting Document(s) bedside glucose 204 mg/dL 70-105 Above high normal Bedside Gluco se [place] ([facility]) ID Date Data Source [id number] 03/20/2020 10:57:00 PM EST [place] ([facility]) Name Value Range Interpretation Code Description Data Kaye rce(s) Supporting Document(s) bedside glucose 204 mg/dL 70-105 Above high normal Bedside Gluco se [place] ([facility]) ID Date Data Source [id number] 03/20/2020 10:57:00 PM EST [place] ([facility]) Name Value Range Interpretation Code Description Data Kaye rce(s) Supporting Document(s) bedside glucose 204 mg/dL 70-105 Above high normal Bedside Gluco se [place] ([facility]) ID Date Data Source [id number] 03/20/2020 10:57:00 PM EST [place] ([facility]) Name Value Range Interpretation Code Description Data Kaye rce(s) Supporting Document(s) bedside glucose 204 mg/dL 70-105 Above high normal Bedside Gluco se [place] ([facility]) ID Date Data Source [id number] 03/20/2020 10:57:00 PM EST [place] ([facility]) Name Value Range Interpretation Code Description Data Kaye rce(s) Supporting Document(s) bedside glucose 204 mg/dL 70-105 Above high normal Bedside Gluco se [place] ([facility]) ID Date Data Source [id number] 03/20/2020 08:36:00 PM EST [place] ([facility]) Name Value Range Interpretation Code Description Data Kaye rce(s) Supporting Document(s) bedside glucose 163 mg/dL 70-105 Above high normal Bedside Gluco se [place] ([facility]) ID Date Data Source [id number] 03/20/2020 08:36:00 PM EST [place] ([facility]) Name Value Range Interpretation Code Description Data Kaye rce(s) Supporting Document(s) bedside glucose 163 mg/dL 70-105 Above high normal Bedside Gluco se [place] ([facility]) ID Date Data Source [id number] 03/20/2020 08:36:00 PM EST [place] ([facility]) Name Value Range Interpretation Code Description Data Kaye rce(s) Supporting Document(s) bedside glucose 163 mg/dL 70-105 Above high normal Bedside Gluco se [place] ([facility]) ID Date Data Source [id number] 03/20/2020 08:36:00 PM EST [place] ([facility]) Name Value Range Interpretation Code Description Data Kaye rce(s) Supporting Document(s) bedside glucose 163 mg/dL 70-105 Above high normal Bedside Gluco se [place] ([facility]) ID Date Data Source [id number] 03/20/2020 08:36:00 PM EST [place] ([facility]) Name Value Range Interpretation Code Description Data Kaye rce(s) Supporting Document(s) bedside glucose 163 mg/dL 70-105 Above high normal Bedside Gluco se [place] ([facility]) ID Date Data Source [id number] 03/20/2020 08:36:00 PM EST [place] ([facility]) Name Value Range Interpretation Code Description Data Kaye rce(s) Supporting Document(s) bedside glucose 163 mg/dL 70-105 Above high normal Bedside Gluco se [place] ([facility]) ID Date Data Source [id number] 03/20/2020 04:36:00 PM EST [place] ([facility]) Name Value Range Interpretation Code Description Data Kaye rce(s) Supporting Document(s) bedside glucose 144 mg/dL 70-105 Above high normal Bedside Gluco se [place] ([facility]) ID Date Data Source [id number] 03/20/2020 [facility] Name Value Range Interpretation Code Description Data Kaye rce(s) Supporting Document(s) bedside glucose 144 mg/dL 70-105 Above high normal [facility] Date Data Source [id number] 03/20/2020 04:36:00 PM EST [place] ([facility]) Name Value Range Interpretation Code Description Data Kaye rce(s) Supporting Document(s) bedside glucose 144 mg/dL 70-105 Above high normal [facility] ID Date Data Source [id number] 03/20/2020 04:36:00 PM EST [place] ([facility]) Name Value Range Interpretation Code Description Data Kaye rce(s) Supporting Document(s) bedside glucose 144 mg/dL 70-105 Above high normal Bedside Gluco se [place] ([facility]) ID Date Data Source [id number] 03/20/2020 04:36:00 PM EST [place] ([facility]) Name Value Range Interpretation Code Description Data Kaye rce(s) Supporting Document(s) bedside glucose 144 mg/dL 70-105 Above high normal Bedside Gluco se [place] ([facility]) ID Date Data Source [id number] 03/20/2020 04:36:00 PM EST [place] ([facility]) Name Value Range Interpretation Code Description Data Kaye rce(s) Supporting Document(s) bedside glucose 144 mg/dL 70-105 Above high normal Bedside Gluco se [place] ([facility]) ID Date Data Source [id number] 03/20/2020 11:51:00 AM EST [place] ([facility]) Name Value Range Interpretation Code Description Data Kaye rce(s) Supporting Document(s) bedside glucose 138 mg/dL 70-105 Above high normal Bedside Gluco se [place] ([facility]) ID Date Data Source [id number] 03/20/2020 11:51:00 AM EST [place] [facility]) Name Value Range Interpretation Code Description Data Kaye rce(s) Supporting Document(s) bedside glucose 138 mg/dL 70-105 Above high normal Bedside Gluco se [place] ([facility]) ID Date Data Source [id number] 03/20/2020 11:51:00 AM EST [place] ([facility]) Name Value Range Interpretation Code Description Data Kaye rce(s) Supporting Document(s) bedside glucose 138 mg/dL 70-105 Above high normal Bedside Gluco se [place] ([facility]) ID Date Data Source [id number] 03/20/2020 11:51:00 AM EST [place] ([facility]) Name Value Range Interpretation Code Description Data Kaye rce(s) Supporting Document(s) bedside glucose 138 mg/dL 70-105 Above high normal Bedside Gluco se [place] ([facility]) ID Date Data Source [id number] 03/20/2020 11:51:00 AM EST [place] ([facility]) Name Value Range Interpretation Code Description Data Kaye rce(s) Supporting Document(s) bedside glucose 138 mg/dL 70-105 Above high normal Bedside Gluco se [place] ([facility]) ID Date Data Source [id number] 03/20/2020 11:51:00 AM EST [place] ([facility]) Name Value Range Interpretation Code Description Data Kaye rce(s) Supporting Document(s) bedside glucose 138 mg/dL 70-105 Above high normal Bedside Gluco se [place] ([facility]) ID Date Data Source [id number] 03/20/2020 10:07:00 AM EST [place] ([facility]) Name Value Range Interpretation Code Description Data Kaye rce(s) Supporting Document(s) glucose, fasting 182 mg/dL 70-100 Above high normal Glucose, Fas ting [place] ([facility]) blood urea nitrogen 19 mg/dL 7-18 Above high normal Blood Ure a Nitrogen [place] ([facility]) creatinine for GFR 1.41 mg/dL 0.55-1.30 Above high normal Creatinine for GFR [place] ([facility]) glomerular filtration rate >58 Below low normal Beata merular Filtration Rate [place] ([facility]) sodium level 138 mEq/L 136-145 Sodium Level [place] ([facility]) potassium serum 3.8 mEq/L 3.5-5.1 Potassium Serum [place] ([facility]) chloride level 110 mEq/L 98-107 Above high normal Chloride Level [place] ([facility]) carbon dioxide level 15 mEq/L 21-32 Below low normal Carbon Di oxide Level [place] ([facility]) anion gap 13 mEq/L 8-16 Anion Gap [place] ([facility]) AST/SGOT 10 U/L 7-37 AST/SGOT [place] ([facility]) calcium level 9.2 mg/dL 8.5-10.1 Calcium Level [place] ( [facility]) ALT/SGPT 17 U/L 12-78 ALT/SGPT [place] ([facility]) alkaline phosphatase 60 U/L 45-117 Alkaline Phosph atase [place] ([facility]) bilirubin,total 0.4 mg/dL 0.2-1.0 Bilirubin,total [place] ([facility]) total protein 6.2 gm/dL 6.4-8.2 Below low normal Total Protein AT [place] ([facility]) albumin 3.3 gm/dL 3.2-5.2 Albumin [place] ([facility]) albumin/globulin ratio 1.2-2.2 Below low normal Albumin /globulin Ratio [place] ([facility]) ID Date Data Source [id number] 03/20/2020 10:07:00 AM EST [place] ([facility]) Name Value Range Interpretation Code Description Data Kaye rce(s) Supporting Document(s) glucose, fasting 182 mg/dL 70-100 Above high normal Glucose, Fas ting [place] ([facility]) blood urea nitrogen 19 mg/dL 7-18 Above high normal Blood Ure a Nitrogen [place] ([facility]) creatinine for GFR 1.41 mg/dL 0.55-1.30 Above high normal Creatinine for GFR [place] ([facility]) glomerular filtration rate >58 Below low normal Beata merular Filtration Rate [place] ([facility]) potassium serum 3.8 mEq/L 3.5-5.1 Potassium Serum [place] ([facility]) sodium level 138 mEq/L 136-145 Sodium Level [place] (No [facility]) chloride level 110 mEq/L 98-107 Above high normal Chloride Level [place] ([facility]) carbon dioxide level 15 mEq/L 21-32 Below low normal Carbon Di oxide Level [place] ([facility]) anion gap 13 mEq/L 8-16 Anion Gap [place] ([facility]) calcium level 9.2 mg/dL 8.5-10.1 Calcium Level [place] ( [facility]) AST/SGOT 10 U/L 7-37 AST/SGOT [place] ([facility]) ALT/SGPT 17 U/L 12-78 ALT/SGPT [place] ([facility]) alkaline phosphatase 60 U/L 45-117 Alkaline Phosph atase [place] ([facility]) total protein 6.2 gm/dL 6.4-8.2 Below low normal Total Protein AT TRAM ([facility]) bilirubin,total 0.4 mg/dL 0.2-1.0 Bilirubin,total [place] ([facility]) albumin 3.3 gm/dL 3.2-5.2 Albumin [place] ([facility]) albumin/globulin ratio 1.2-2.2 Below low normal Albumin /globulin Ratio [place] ([facility]) ID Date Data Source [id number] 03/20/2020 10:07:00 AM EST [place] ([facility]) Name Value Range Interpretation Code Description Data Kaye rce(s) Supporting Document(s) glucose, fasting 182 mg/dL 70-100 Above high normal Glucose, Fas ting [place] ([facility]) creatinine for GFR 1.41 mg/dL 0.55-1.30 Above high normal Creatinine for GFR [place] ([facility]) blood urea nitrogen 19 mg/dL 7-18 Above high normal Blood Ure a Nitrogen [place] ([facility]) glomerular filtration rate >58 Below low normal Beata merular Filtration Rate [place] ([facility]) sodium level 138 mEq/L 136-145 Sodium Level [place] (No [facility]) potassium serum 3.8 mEq/L 3.5-5.1 Potassium Serum [place] ([facility]) chloride level 110 mEq/L 98-107 Above high normal Chloride Level [place] ([facility]) carbon dioxide level 15 mEq/L 21-32 Below low normal Carbon Di oxide Level [place] ([facility]) anion gap 13 mEq/L 8-16 Anion Gap [place] ([facility]) calcium level 9.2 mg/dL 8.5-10.1 Calcium Level [place] ( [facility]) AST/SGOT 10 U/L 7-37 AST/SGOT [place] ([facility]) ALT/SGPT 17 U/L 12-78 ALT/SGPT [place] ([facility]) bilirubin,total 0.4 mg/dL 0.2-1.0 Bilirubin,total [place] ([facility]) alkaline phosphatase 60 U/L 45-117 Alkaline Phosph atase [place] ([facility]) total protein 6.2 gm/dL 6.4-8.2 Below low normal Total Protein AT [place] ([facility]) albumin/globulin ratio 1.2-2.2 Below low normal Albumin /globulin Ratio [place] ([facility]) albumin 3.3 gm/dL 3.2-5.2 Albumin [place] ([facility]) ID Date Data Source [id number] 03/20/2020 10:07:00 AM EST [place] ([facility]) Name Value Range Interpretation Code Description Data Kaye rce(s) Supporting Document(s) glucose, fasting 182 mg/dL 70-100 Above high normal Glucose, Fas ting [place] ([facility]) blood urea nitrogen 19 mg/dL 7-18 Above high normal Blood Ure a Nitrogen [place] ([facility]) creatinine for GFR 1.41 mg/dL 0.55-1.30 Above high normal Creatinine for GFR [place] ([facility]) glomerular filtration rate >58 Below low normal Beata merular Filtration Rate [place] ([facility]) sodium level 138 mEq/L 136-145 Sodium Level [place] ([facility]) potassium serum 3.8 mEq/L 3.5-5.1 Potassium Serum [place] ([facility]) chloride level 110 mEq/L 98-107 Above high normal Chloride Level [place] ([facility]) carbon dioxide level 15 mEq/L 21-32 Below low normal Carbon Di oxide Level [place] ([facility]) anion gap 13 mEq/L 8-16 Anion Gap [place] ([facility]) calcium level 9.2 mg/dL 8.5-10.1 Calcium Level [place] ( [facility]) AST/SGOT 10 U/L 7-37 AST/SGOT [place] ([facility]) ALT/SGPT 17 U/L 12-78 ALT/SGPT [place] ([facility]) alkaline phosphatase 60 U/L 45-117 Alkaline Phosph atase [place] ([facility]) bilirubin,total 0.4 mg/dL 0.2-1.0 Bilirubin,total [place] ([facility]) total protein 6.2 gm/dL 6.4-8.2 Below low normal Total Protein AT TRAM ([facility]) albumin 3.3 gm/dL 3.2-5.2 Albumin [place] ([facility]) albumin/globulin ratio 1.2-2.2 Below low normal Albumin /globulin Ratio [place] ([facility]) ID Date Data Source [id number] 03/20/2020 10:07:00 AM EST [place] ([facility]) Name Value Range Interpretation Code Description Data Kaye rce(s) Supporting Document(s) glucose, fasting 182 mg/dL 70-100 Above high normal Glucose, Fas ting [place] ([facility]) creatinine for GFR 1.41 mg/dL 0.55-1.30 Above high normal Creatinine for GFR [place] ([facility]) blood urea nitrogen 19 mg/dL 7-18 Above high normal Blood Ure a Nitrogen [place] ([facility]) glomerular filtration rate >58 Below low normal Beata merular Filtration Rate [place] ([facility]) sodium level 138 mEq/L 136-145 Sodium Level [place] ([facility]) potassium serum 3.8 mEq/L 3.5-5.1 Potassium Serum [place] ([facility]) chloride level 110 mEq/L 98-107 Above high normal Chloride Level [place] ([facility]) carbon dioxide level 15 mEq/L 21-32 Below low normal Carbon Di oxide Level [place] ([facility]) anion gap 13 mEq/L 8-16 Anion Gap [place] ([facility]) calcium level 9.2 mg/dL 8.5-10.1 Calcium Level [place] ( [facility]) AST/SGOT 10 U/L 7-37 AST/SGOT [place] ([facility]) ALT/SGPT 17 U/L 12-78 ALT/SGPT [place] ([facility]) alkaline phosphatase 60 U/L 45-117 Alkaline Phosph atase [place] ([facility]) total protein 6.2 gm/dL 6.4-8.2 Below low normal Total Protein AT [place] ([facility]) bilirubin,total 0.4 mg/dL 0.2-1.0 Bilirubin,total [place] ([facility]) albumin 3.3 gm/dL 3.2-5.2 Albumin [place] ([facility]) albumin/globulin ratio 1.2-2.2 Below low normal Albumin /globulin Ratio [place] ([facility]) ID Date Data Source [id number] 03/20/2020 10:07:00 AM EST [place] ([facility]) Name Value Range Interpretation Code Description Data Kaye rce(s) Supporting Document(s) glucose, fasting 182 mg/dL 70-100 Above high normal Glucose, Fas ting [place] ([facility]) blood urea nitrogen 19 mg/dL 7-18 Above high normal Blood Ure a Nitrogen [place] ([facility]) creatinine for GFR 1.41 mg/dL 0.55-1.30 Above high normal Creatinine for GFR [place] ([facility]) glomerular filtration rate >58 Below low normal Beata merular Filtration Rate [place] ([facility]) sodium level 138 mEq/L 136-145 Sodium Level [place] ([facility]) potassium serum 3.8 mEq/L 3.5-5.1 Potassium Serum [place] ([facility]) chloride level 110 mEq/L 98-107 Above high normal Chloride Level [place] ([facility]) carbon dioxide level 15 mEq/L 21-32 Below low normal Carbon Di oxide Level [place] ([facility]) anion gap 13 mEq/L 8-16 Anion Gap [place] ([facility]) calcium level 9.2 mg/dL 8.5-10.1 Calcium Level [place] ( [facility]) AST/SGOT 10 U/L 7-37 AST/SGOT [place] ([facility]) ALT/SGPT 17 U/L 12-78 ALT/SGPT [place] ([facility]) alkaline phosphatase 60 U/L 45-117 Alkaline Phosph atase [place] ([facility]) bilirubin,total 0.4 mg/dL 0.2-1.0 Bilirubin,total [place] ([facility]) total protein 6.2 gm/dL 6.4-8.2 Below low normal Total Protein AT TRAM ([facility]) albumin 3.3 gm/dL 3.2-5.2 Albumin [place] ([facility]) albumin/globulin ratio 1.2-2.2 Below low normal Albumin /globulin Ratio [place] ([facility]) ID Date Data Source [id number] 03/20/2020 07:26:00 AM EST [place] ([facility]) Name Value Range Interpretation Code Description Data Kaye rce(s) Supporting Document(s) bedside glucose 352 mg/dL 70-105 Above high normal Bedside Gluco se [facility]) ID Date Data Source [id number] 03/20/2020 07:26:00 AM EST [place] ([facility]) Name Value Range Interpretation Code Description Data Kaye rce(s) Supporting Document(s) bedside glucose 352 mg/dL 70-105 Above high normal Bedside Gluco se [place] ([facility]) ID Date Data Source [id number] 03/20/2020 07:26:00 AM EST [place] ([facility]) Name Value Range Interpretation Code Description Data Kaye rce(s) Supporting Document(s) bedside glucose 352 mg/dL 70-105 Above high normal Bedside Gluco se [place] ([facility]) ID Date Data Source [id number] 03/20/2020 07:26:00 AM EST [place] ([facility]) Name Value Range Interpretation Code Description Data Kaye rce(s) Supporting Document(s) bedside glucose 352 mg/dL 70-105 Above high normal Bedside Gluco se [place] ([facility]) ID Date Data Source [id number] 03/20/2020 07:26:00 AM EST [place] ([facility]) Name Value Range Interpretation Code Description Data Kaye rce(s) Supporting Document(s) bedside glucose 352 mg/dL 70-105 Above high normal Bedside Gluco se [place] ([facility]) ID Date Data Source [id number] 03/20/2020 07:26[facility] Name Value Range Interpretation Code Description Data Kaye rce(s) Supporting Document(s) bedside glucose 352 mg/dL 70-105 Above high normal Bedside Gluco se [place] ([facility]) ID Date Data Source [id number] 03/20/2020 07:08:00 AM EST [place] ([facility]) Name Value Range Interpretation Code Description Data Kaye rce(s) Supporting Document(s) acetone/ketone > 46.00 <2.81 Above high normal Acetone/ketone [facility]) ID Date Data Source [id number] 03/20/2020 07:08:00 AM EST [place] ([facility]) Name Value Range Interpretation Code Description Data Kaye rce(s) Supporting Document(s) red blood count 3.36 10 4.00-5.40 Below low normal Red Blood Coun t [place] ([facility]) white blood count 11.3 10 4.0-10.0 Above high normal White Blood Count [place] ([facility]) hemoglobin 9.3 g/dL 12.0-15.5 Below low normal Hemoglobin [place] ( [facility]) hematocrit 29.1 % 36.0-47.0 Below low normal Hematocrit [place] ( [facility]) mean corpuscular hemoglobin 27.7 pg 27.0-33.0 Mean Cor puscular Hemoglobin [place] ([facility]) mean corpuscular volume 86.6 fL 80.0-96.0 Mean Corpusc ular Volume [place] ([facility]) mean corpuscular HGB conc 32.0 g/dL 32.0-36.5 Mean Corpu scular HGB Conc [place] ([facility]) platelet count, automated 239 10 150-450 Platelet C ount, Automated [place] ([facility]) red cell distribution width 15.7 % 11.5-14.5 Above high no rmal Red Cell Distribution Width [place] ([facility]) nucleated red blood cell % 0.0 % 0-0 Nucleated Red Blood Cell % [place] ([facility]) ID Date Data Source [id number] 03/20/2020 07:08:00 AM EST [place] ([facility]) Name Value Range Interpretation Code Description Data Kaye rce(s) Supporting Document(s) acetone/ketone > 46.00 <2.81 Above high normal Acetone/ketone [place] ([facility]) ID Date Data Source [id number] 03/20/2020 07:08:00 AM EST [place] ([facility]) Name Value Range Interpretation Code Description Data Kaye rce(s) Supporting Document(s) red blood count 3.36 10 4.00-5.40 Below low normal Red Blood Coun t [place] ([facility]) white blood count 11.3 10 4.0-10.0 Above high normal White Blood Count [place] ([facility]) hemoglobin 9.3 g/dL 12.0-15.5 Below low normal Hemoglobin [place] ( [facility]) hematocrit 29.1 % 36.0-47.0 Below low normal Hematocrit ROMAN ( [facility]) mean corpuscular volume 86.6 fL 80.0-96.0 Mean Corpusc ular Volume ROMAN ([facility]) mean corpuscular hemoglobin 27.7 pg 27.0-33.0 Mean Cor puscular Hemoglobin ROMAN ([facility]) mean corpuscular HGB conc 32.0 g/dL 32.0-36.5 Mean Corpu scular HGB Conc ROM[place] ([facility]) red cell distribution width 15.7 % 11.5-14.5 Above high no rmal Red Cell Distribution Width ROM[place] ([facility]) platelet count, automated 239 10 150-450 Platelet C ount, Automated [place] ([facility]) nucleated red blood cell % 0.0 % 0-0 Nucleated Red Blood Cell % [place] ([facility]) ID Date Data Source [id number] 03/20/2020 07:08:00 AM EST [place] ([facility]) Name Value Range Interpretation Code Description Data Kaye rce(s) Supporting Document(s) acetone/ketone > 46.00 <2.81 Above high normal Acetone/ketone [place] ([facility]) ID Date Data Source [id number] 03/20/2020 07:08:00 AM EST [place] ([facility]) Name Value Range Interpretation Code Description Data Kaye rce(s) Supporting Document(s) white blood count 11.3 10 4.0-10.0 Above high normal White Blood Count [place] ([facility]) red blood count 3.36 10 4.00-5.40 Below low normal Red Blood Coun t [place] ([facility]) hemoglobin 9.3 g/dL 12.0-15.5 Below low normal Hemoglobin ROM[place] ( [facility]) hematocrit 29.1 % 36.0-47.0 Below low normal Hematocrit [place] ( [facility]) mean corpuscular volume 86.6 fL 80.0-96.0 Mean Corpusc ular Volume ROMAN ([facility]) mean corpuscular hemoglobin 27.7 pg 27.0-33.0 Mean Cor puscular Hemoglobin ROM[place] ([facility]) red cell distribution width 15.7 % 11.5-14.5 Above high no rmal Red Cell Distribution Width [place] ([facility]) mean corpuscular HGB conc 32.0 g/dL 32.0-36.5 Mean Corpu scular HGB Conc [place] ([facility]) platelet count, automated 239 10 150-450 Platelet C ount, Automated [place] ([facility]) nucleated red blood cell % 0.0 % 0-0 Nucleated Red Blood Cell % [place] ([facility]) ID Date Data Source [id number] 03/20/2020 07:08:00 AM EST [place] ([facility]) Name Value Range Interpretation Code Description Data Kaye rce(s) Supporting Document(s) acetone/ketone > 46.00 <2.81 Above high normal Acetone/ketone [place] ([facility]) ID Date Data Source [id number] 03/20/2020 07:08:00 AM EST [place] ([facility]) Name Value Range Interpretation Code Description Data Kaye rce(s) Supporting Document(s) white blood count 11.3 10 4.0-10.0 Above high normal White Blood Count [place] ([facility]) red blood count 3.36 10 4.00-5.40 Below low normal Red Blood Coun t [place] ([facility]) hemoglobin 9.3 g/dL 12.0-15.5 Below low normal Hemoglobin ROM[place] ( [facility]) mean corpuscular volume 86.6 fL 80.0-96.0 Mean Corpusc ular Volume [place] ([facility]) hematocrit 29.1 % 36.0-47.0 Below low normal Hematocrit ROM[place] ( [facility]) mean corpuscular hemoglobin 27.7 pg 27.0-33.0 Mean Cor puscular Hemoglobin [place] ([facility]) mean corpuscular HGB conc 32.0 g/dL 32.0-36.5 Mean Corpu scular HGB Conc [place] ([facility]) red cell distribution width 15.7 % 11.5-14.5 Above high no rmal Red Cell Distribution Width [place] ([facility]) platelet count, automated 239 10 150-450 Platelet C ount, Automated [place] ([facility]) nucleated red blood cell % 0.0 % 0-0 Nucleated Red Blood Cell % [place] ([facility]) ID Date Data Source [id number] 03/20/2020 07:08:00 AM EST [place] ([facility]) Name Value Range Interpretation Code Description Data Kaye rce(s) Supporting Document(s) acetone/ketone > 46.00 <2.81 Above high normal Acetone/ketone [place] ([facility]) ID Date Data Source [id number] 03/20/2020 07:08:00 AM EST [place] ([facility]) Name Value Range Interpretation Code Description Data Kaye rce(s) Supporting Document(s) white blood count 11.3 10 4.0-10.0 Above high normal White Blood Count [place] ([facility]) red blood count 3.36 10 4.00-5.40 Below low normal Red Blood Coun t [place] ([facility]) hematocrit 29.1 % 36.0-47.0 Below low normal Hematocrit [place] ( [facility]) hemoglobin 9.3 g/dL 12.0-15.5 Below low normal Hemoglobin [place] ( [facility]) mean corpuscular volume 86.6 fL 80.0-96.0 Mean Corpusc ular Volume [place] ([facility]) mean corpuscular hemoglobin 27.7 pg 27.0-33.0 Mean Cor puscular Hemoglobin [place] ([facility]) mean corpuscular HGB conc 32.0 g/dL 32.0-36.5 Mean Corpu scular HGB Conc [place] ([facility]) red cell distribution width 15.7 % 11.5-14.5 Above high no rmal Red Cell Distribution Width [place] ([facility]) platelet count, automated 239 10 150-450 Platelet C ount, Automated [place] ([facility]) nucleated red blood cell % 0.0 % 0-0 Nucleated Red Blood Cell % [place] ([facility]) ID Date Data Source [id number] 03/20/2020 07:08:00 AM EST [place] ([facility]) Name Value Range Interpretation Code Description Data Kaye rce(s) Supporting Document(s) acetone/ketone > 46.00 <2.81 Above high normal Acetone/ketone [place] ([facility]) ID Date Data Source [id number] 03/20/2020 07:08:00 AM EST [place] ([facility]) Name Value Range Interpretation Code Description Data Kaye rce(s) Supporting Document(s) white blood count 11.3 10 4.0-10.0 Above high normal White Blood Count [place] ([facility]) red blood count 3.36 10 4.00-5.40 Below low normal Red Blood Coun t [place] ([facility]) hemoglobin 9.3 g/dL 12.0-15.5 Below low normal Hemoglobin [place] ( [facility]) hematocrit 29.1 % 36.0-47.0 Below low normal Hematocrit [place] ( [facility]) mean corpuscular volume 86.6 fL 80.0-96.0 Mean Corpusc ular Volume [place] ([facility]) mean corpuscular hemoglobin 27.7 pg 27.0-33.0 Mean Cor puscular Hemoglobin [place] ([facility]) mean corpuscular HGB conc 32.0 g/dL 32.0-36.5 Mean Corpu scular HGB Conc [place] ([facility]) red cell distribution width 15.7 % 11.5-14.5 Above high no rmal Red Cell Distribution Width [place] ([facility]) platelet count, automated 239 10 150-450 Platelet C ount, Automated [place] ([facility]) nucleated red blood cell % 0.0 % 0-0 Nucleated Red Blood Cell % [place] ([facility]) ID Date Data Source [id number] 03/20/2020 06:47:00 AM EST [place] ([facility]) Name Value Range Interpretation Code Description Data Kaye rce(s) Supporting Document(s) bedside glucose 352 mg/dL 70-105 Above high normal Bedside Gluco se [place] ([facility]) ID Date Data Source [id number] 03/20/2020 06:47:00 AM EST [place] ([facility]) Name Value Range Interpretation Code Description Data Kaye rce(s) Supporting Document(s) bedside glucose 352 mg/dL 70-105 Above high normal Bedside Gluco se [place] ([facility]) ID Date Data Source [id number] 03/20/2020 06:47:00 AM EST [facility]) Name Value Range Interpretation Code Description Data Kaye rce(s) Supporting Document(s) bedside glucose 352 mg/dL 70-105 Above high normal Bedside Gluco se [facility]) ID Date Data Source [id number] 03/20/2020 06:47:00 AM EST [facility]) Name Value Range Interpretation Code Description Data Kaye rce(s) Supporting Document(s) bedside glucose 352 mg/dL 70-105 Above high normal Bedside Gluco se [facility]) ID Date Data Source [id number] 03/20/2020 06:47:00 AM EST [facility]) Name Value Range Interpretation Code Description Data Kaye rce(s) Supporting Document(s) bedside glucose 352 mg/dL 70-105 Above high normal Bedside Gluco se [facility]) ID Date Data Source [id number] 03/20/2020 06:47:00 AM EST [facility]) Name Value Range Interpretation Code Description Data Kaye rce(s) Supporting Document(s) bedside glucose 352 mg/dL 70-105 Above high normal Bedside Gluco se [place] ([facility]) ID Date Data Source [id number] 03/19/2020 09:10:00 PM EST [place] ([facility]) Name Value Range Interpretation Code Description Data Kaye rce(s) Supporting Document(s) bedside glucose 119 mg/dL 70-105 Above high normal Bedside Gluco se [place] ([facility]) ID Date Data Source [id number] 03/19/2020 09:10:00 PM EST [place] ([facility]) Name Value Range Interpretation Code Description Data Kaye rce(s) Supporting Document(s) bedside glucose 119 mg/dL 70-105 Above high normal Bedside Gluco se [place] ([facility]) ID Date Data Source [id number] 03/19/2020 09:10:00 PM EST [place] ([facility]) Name Value Range Interpretation Code Description Data Kaye rce(s) Supporting Document(s) bedside glucose 119 mg/dL 70-105 Above high normal Bedside Gluco se [place] ([facility]) ID Date Data Source [id number] 03/19/2020 09[facility]10[facility] Name Value Range Interpretation Code Description Data Kaye rce(s) Supporting Document(s) bedside glucose 119 mg/dL 70-105 Above high normal Bedside Gluco se [place] ([facility]) ID Date Data Source [id number] 03/19/2020 09:10:00 PM EST [place] ([facility]) Name Value Range Interpretation Code Description Data Kaye rce(s) Supporting Document(s) bedside glucose 119 mg/dL 70-105 Above high normal Bedside Gluco se [facility]) ID Date Data Source [id number] 03/19/2020 09:10:00 PM EST [place] ([facility]) Name Value Range Interpretation Code Description Data Kaye rce(s) Supporting Document(s) bedside glucose 119 mg/dL 70-105 Above high normal Bedside Gluco se [place] ([facility]) ID Date Data Source [id number] 03/19/2020 04:58:00 PM EST [place] ([facility]) Name Value Range Interpretation Code Description Data Kaye rce(s) Supporting Document(s) bedside glucose 136 mg/dL 70-105 Above high normal Bedside Gluco se [place] ([facility]) ID Date Data Source [id number] 03/19/2020 04:58:00 PM EST [place] ([facility]) Name Value Range Interpretation Code Description Data Kaye rce(s) Supporting Document(s) bedside glucose 136 mg/dL 70-105 Above high normal Bedside Gluco se [place] ([facility]) ID Date Data Source [id number] 03/19/2020 04:58:00 PM EST [place] ([facility]) Name Value Range Interpretation Code Description Data Kaye rce(s) Supporting Document(s) bedside glucose 136 mg/dL 70-105 Above high normal Bedside Gluco se [place] ([facility]) ID Date Data Source [id number] 03/19/2020 04:58:00 PM EST [place] ([facility]) Name Value Range Interpretation Code Description Data Kaye rce(s) Supporting Document(s) bedside glucose 136 mg/dL 70-105 Above high normal Bedside Gluco se [place] ([facility]) ID Date Data Source [id number] 03/19/2020 04:58:00 PM EST [place] ([facility]) Name Value Range Interpretation Code Description Data Kaye rce(s) Supporting Document(s) bedside glucose 136 mg/dL 70-105 Above high normal Bedside Gluco se [place] ([facility]) ID Date Data Source [id number] 03/19/2020 04:58:00 PM EST [place] ([facility]) Name Value Range Interpretation Code Description Data Kaye rce(s) Supporting Document(s) bedside glucose 136 mg/dL 70-105 Above high normal Bedside Gluco se [place] ([facility]) ID Date Data Source [id number] 03/19/2020 11:56:00 AM EST [place] [facility]) Name Value Range Interpretation Code Description Data Kaye rce(s) Supporting Document(s) acetone/ketone 33.70 mg/dL <2.81 Above high normal Acetone/keton e [facility]) ID Date Data Source [id number] 03/19/2020 11:56:00 AM EST [place] ([facility]) Name Value Range Interpretation Code Description Data Kaye rce(s) Supporting Document(s) glucose, fasting 137 mg/dL 70-100 Above high normal Glucose, Fas ting [place] ([facility]) creatinine for GFR 1.42 mg/dL 0.55-1.30 Above high normal Creatinine for GFR [place] ([facility]) blood urea nitrogen 21 mg/dL 7-18 Above high normal Blood Ure a Nitrogen [place] ([facility]) glomerular filtration rate >58 Below low normal Beata merular Filtration Rate [place] ([facility]) potassium serum 3.7 mEq/L 3.5-5.1 Potassium Serum [place] ([facility]) sodium level 139 mEq/L 136-145 Sodium Level [place] ([facility]) chloride level 112 mEq/L 98-107 Above high normal Chloride Level [place] ([facility]) carbon dioxide level 19 mEq/L 21-32 Below low normal Carbon Di oxide Level [place] ([facility]) anion gap 8 mEq/L 8-16 Anion Gap [place] ([facility]) calcium level 8.6 mg/dL 8.5-10.1 Calcium Level [place] ( [facility]) ID Date Data Source [id number] 03/19/2020 11:56:00 AM EST [place] ([facility]) Name Value Range Interpretation Code Description Data Kaye rce(s) Supporting Document(s) acetone/ketone 33.70 mg/dL <2.81 Above high normal Acetone/keton e [place] ([facility]) ID Date Data Source [id number] 03/19/2020 11:56:00 AM EST [place] ([facility]) Name Value Range Interpretation Code Description Data Kaye rce(s) Supporting Document(s) glucose, fasting 137 mg/dL 70-100 Above high normal Glucose, Fas ting [place] ([facility]) blood urea nitrogen 21 mg/dL 7-18 Above high normal Blood Ure a Nitrogen [place] ([facility]) creatinine for GFR 1.42 mg/dL 0.55-1.30 Above high normal Creatinine for GFR [place] ([facility]) glomerular filtration rate >58 Below low normal Beata merular Filtration Rate [place] ([facility]) potassium serum 3.7 mEq/L 3.5-5.1 Potassium Serum [place] ([facility]) sodium level 139 mEq/L 136-145 Sodium Level [place] ([facility]) chloride level 112 mEq/L 98-107 Above high normal Chloride Level [place] ([facility]) carbon dioxide level 19 mEq/L 21-32 Below low normal Carbon Di oxide Level [place] ([facility]) anion gap 8 mEq/L 8-16 Anion Gap [place] ([facility]) calcium level 8.6 mg/dL 8.5-10.1 Calcium Level [place] ( [facility]) ID Date Data Source [id number] 03/19/2020 11:56:00 AM EST [place] ([facility]) Name Value Range Interpretation Code Description Data Kaye rce(s) Supporting Document(s) acetone/ketone 33.70 mg/dL <2.81 Above high normal Acetone/keton e [place] ([facility]) ID Date Data Source [id number] 03/19/2020 11:56:00 AM EST [place] ([facility]) Name Value Range Interpretation Code Description Data Kaye rce(s) Supporting Document(s) blood urea nitrogen 21 mg/dL 7-18 Above high normal Blood Ure a Nitrogen [place] ([facility]) glucose, fasting 137 mg/dL 70-100 Above high normal Glucose, Fas ting [place] ([facility]) creatinine for GFR 1.42 mg/dL 0.55-1.30 Above high normal Creatinine for GFR [place] ([facility]) sodium level 139 mEq/L 136-145 Sodium Level [place] ([facility]) glomerular filtration rate >58 Below low normal Beata merular Filtration Rate [place] ([facility]) potassium serum 3.7 mEq/L 3.5-5.1 Potassium Serum [place] ([facility]) carbon dioxide level 19 mEq/L 21-32 Below low normal Carbon Di oxide Level [place] ([facility]) chloride level 112 mEq/L 98-107 Above high normal Chloride Level [place] ([facility]) anion gap 8 mEq/L 8-16 Anion Gap [place] ([facility]) calcium level 8.6 mg/dL 8.5-10.1 Calcium Level [place] ( [facility]) ID Date Data Source [id number] 03/19/2020 11:56:00 AM EST [place] ([facility]) Name Value Range Interpretation Code Description Data Kaye rce(s) Supporting Document(s) acetone/ketone 33.70 mg/dL <2.81 Above high normal Acetone/keton e [place] ([facility]) ID Date Data Source [id number] 03/19/2020 11:56:00 AM EST [place] ([facility]) Name Value Range Interpretation Code Description Data Kaye rce(s) Supporting Document(s) glucose, fasting 137 mg/dL 70-100 Above high normal Glucose, Fas ting [place] ([facility]) blood urea nitrogen 21 mg/dL 7-18 Above high normal Blood Ure a Nitrogen [place] ([facility]) creatinine for GFR 1.42 mg/dL 0.55-1.30 Above high normal Creatinine for GFR [place] ([facility]) glomerular filtration rate >58 Below low normal Beata merular Filtration Rate [place] ([facility]) sodium level 139 mEq/L 136-145 Sodium Level [place] ([facility]) potassium serum 3.7 mEq/L 3.5-5.1 Potassium Serum [place] ([facility]) chloride level 112 mEq/L 98-107 Above high normal Chloride Level [place] ([facility]) carbon dioxide level 19 mEq/L 21-32 Below low normal Carbon Di oxide Level [place] ([facility]) anion gap 8 mEq/L 8-16 Anion Gap [place] ([facility]) calcium level 8.6 mg/dL 8.5-10.1 Calcium Level [place] ( [facility]) ID Date Data Source [id number] 03/19/2020 11:56:00 AM EST [facility]) Name Value Range Interpretation Code Description Data Kaye rce(s) Supporting Document(s) acetone/ketone 33.70 mg/dL <2.81 Above high normal Acetone/keton e [place] ([facility]) ID Date Data Source [id number] 03/19/2020 11:56:00 AM EST [place] ([facility]) Name Value Range Interpretation Code Description Data Kaye rce(s) Supporting Document(s) glucose, fasting 137 mg/dL 70-100 Above high normal Glucose, Fas ting [place] ([facility]) creatinine for GFR 1.42 mg/dL 0.55-1.30 Above high normal Creatinine for GFR [place] ([facility]) blood urea nitrogen 21 mg/dL 7-18 Above high normal Blood Ure a Nitrogen [place] ([facility]) glomerular filtration rate >58 Below low normal Beata merular Filtration Rate [place] ([facility]) sodium level 139 mEq/L 136-145 Sodium Level [place] ([facility]) potassium serum 3.7 mEq/L 3.5-5.1 Potassium Serum [place] ([facility]) chloride level 112 mEq/L 98-107 Above high normal Chloride Level [place] ([facility]) carbon dioxide level 19 mEq/L 21-32 Below low normal Carbon Di oxide Level [place] ([facility]) anion gap 8 mEq/L 8-16 Anion Gap [place] ([facility]) calcium level 8.6 mg/dL 8.5-10.1 Calcium Level [place] ( [facility]) ID Date Data Source [id number] 03/19/2020 11:56:00 AM EST [place] ([facility]) Name Value Range Interpretation Code Description Data Kaye rce(s) Supporting Document(s) acetone/ketone 33.70 mg/dL <2.81 Above high normal Acetone/keton e [place] ([facility]) ID Date Data Source [id number] 03/19/2020 11:56:00 AM EST [facility]) Name Value Range Interpretation Code Description Data Kaye rce(s) Supporting Document(s) glucose, fasting 137 mg/dL 70-100 Above high normal Glucose, Fas ting [place] ([facility]) blood urea nitrogen 21 mg/dL 7-18 Above high normal Blood Ure a Nitrogen [place] ([facility]) creatinine for GFR 1.42 mg/dL 0.55-1.30 Above high normal Creatinine for GFR [place] ([facility]) glomerular filtration rate >58 Below low normal Beata merular Filtration Rate [place] ([facility]) sodium level 139 mEq/L 136-145 Sodium Level [place] ([facility]) potassium serum 3.7 mEq/L 3.5-5.1 Potassium Serum [place] NA ([facility]) chloride level 112 mEq/L 98-107 Above high normal Chloride Level [place] ([facility]) carbon dioxide level 19 mEq/L 21-32 Below low normal Carbon Di oxide Level [place] ([facility]) anion gap 8 mEq/L 8-16 Anion Gap [place] ([facility]) calcium level 8.6 mg/dL 8.5-10.1 Calcium Level [place] ( [facility]) ID Date Data Source [id number] 03/19/2020 11:37:00 AM EST [place] ([facility]) Name Value Range Interpretation Code Description Data Kaye rce(s) Supporting Document(s) bedside glucose 137 mg/dL 70-105 Above high normal Bedside Gluco se [place] ([facility]) ID Date Data Source [id number] 03/19/2020 11:37:00 AM EST [place] ([facility]) Name Value Range Interpretation Code Description Data Kaye rce(s) Supporting Document(s) bedside glucose 137 mg/dL 70-105 Above high normal Bedside Gluco se [place] [facility] [facility]) ID Date Data Source [id number] 03/19/2020 11:37:00 AM EST ROMAN ([facility]) Name Value Range Interpretation Code Description Data Kaye rce(s) Supporting Document(s) bedside glucose 137 mg/dL 70-105 Above high normal Bedside Gluco se ROMAN ([facility]) ID Date Data Source [id number] 03/19/2020 11:37:00 AM EST ROMAN ([facility]) Name Value Range Interpretation Code Description Data Kaye rce(s) Supporting Document(s) bedside glucose 137 mg/dL 70-105 Above high normal Bedside Gluco se ROMAN ([facility]) ID Date Data Source [id number] 03/19/2020 11:37[facility] Name Value Range Interpretation Code Description Data Kaye rce(s) Supporting Document(s) bedside glucose 137 mg/dL 70-105 Above high normal Bedside Gluco se ROMAN ([facility]) ID Date Data Source [id number] 03/19/2020 11:37:00 AM EST ROMAN ([facility]) Name Value Range Interpretation Code Description Data Kaye rce(s) Supporting Document(s) bedside glucose 137 mg/dL 70-105 Above high normal Bedside Gluco se ROMAN ([facility]) ID Date Data Source [id number] 03/19/2020 05:56:00 AM EST ROMAN ([facility]) Name Value Range Interpretation Code Description Data Kaye rce(s) Supporting Document(s) bedside glucose 343 mg/dL 70-105 Above high normal Bedside Gluco se [place] ([facility]) ID Date Data Source [id number] 03/19/2020 05:56:00 AM EST [facility]) Name Value Range Interpretation Code Description Data Kaye rce(s) Supporting Document(s) bedside glucose 343 mg/dL 70-105 Above high normal [facility] ID Date Data Source [id number] 03/19/2020 05:56:00 AM EST ROMAN ([facility]) Name Value Range Interpretation Code Description Data Kaye rce(s) Supporting Document(s) bedside glucose 343 mg/dL 70-105 Above high normal Bedside Gluco se ROMAN ([facility]) ID Date Data Source [id number] 03/19/2020 05:56:00 [facility] Name Value Range Interpretation Code Description Data Kaye rce(s) Supporting Document(s) bedside glucose 343 mg/dL 70-105 Above high normal [facility] ID Date Data Source [id number] 03/19/2020 05:56:00 AM EST ROMAN ([facility]) Name Value Range Interpretation Code Description Data Kaye rce(s) Supporting Document(s) bedside glucose 343 mg/dL 70-105 Above high normal Bedside Gluco se ROMAN ([facility]) ID Date Data Source [id number] 03/19/2020 05:56:00 AM EST ROMAN ([facility]) Name Value Range Interpretation Code Description Data Kaye rce(s) Supporting Document(s) bedside glucose 343 mg/dL 70-105 Above high normal Bedside Gluco se ROMAN ([facility]) ID Date Data Source [id number] 03/18/2020 08:36:00 PM EST ROMAN ([facility]) Name Value Range Interpretation Code Description Data Kaye rce(s) Supporting Document(s) bedside glucose 199 mg/dL 70-105 Above high normal Bedside Gluco se [place] ([facility]) ID Date Data Source [id number] 03/18/2020 08:36:00 PM EST ROMAN ([facility]) Name Value Range Interpretation Code Description Data Kaye rce(s) Supporting Document(s) bedside glucose 199 mg/dL 70-105 Above high normal [facility] ID Date Data Source [id number] 03/18/2020 08:36:00 PM EST ROMAN ([facility]) Name Value Range Interpretation Code Description Data Kaye rce(s) Supporting Document(s) bedside glucose 199 mg/dL 70-105 Above high normal [facility] ID Date Data Source [id number] 03/18/2020 08:36:00 PM EST ROMAN ([facility]) Name Value Range Interpretation Code Description Data Kaye rce(s) Supporting Document(s) bedside glucose 199 mg/dL 70-105 Above high normal Bedside Gluco se ROMAN ([facility]) ID Date Data Source [id number] 03/18/2020 08:36:00 PM EST ROMAN ([facility]) Name Value Range Interpretation Code Description Data Kaye rce(s) Supporting Document(s) bedside glucose 199 mg/dL 70-105 Above high normal Bedside Gluco se [place]AN ([facility]) ID Date Data Source [id number] 03/18/2020 08:36:00 PM EST ROMAN ([facility]) Name Value Range Interpretation Code Description Data Kaye rce(s) Supporting Document(s) bedside glucose 199 mg/dL 70-105 Above high normal Bedside Gluco se ROMAN ([facility]) ID Date Data Source [id number] 03/18/2020 04:52:00 PM EST ROMAN ([facility]) Name Value Range Interpretation Code Description Data Kaye rce(s) Supporting Document(s) bedside glucose 94 mg/dL 70-105 Bedside Glucose ATHE NA ([facility]) ID Date Data Source [id number] 03/18/2020 04:52:00 PM [facility] Name Value Range Interpretation Code Description Data Kaye rce(s) Supporting Document(s) bedside glucose 94 mg/dL 70-105 Bedside Glucose ATHE NA ([facility]) ID Date Data Source [id number] 03/18/2020 04:52:00 PM EST ROMAN ([facility]) Name Value Range Interpretation Code Description Data Kaye rce(s) Supporting Document(s) bedside glucose 94 mg/dL 70-105 Bedside Glucose ATHE NA ([facility]) ID Date Data Source [id number] 03/18/2020 04:52:00 PM EST ROMAN ([facility]) Name Value Range Interpretation Code Description Data Kaye rce(s) Supporting Document(s) bedside glucose 94 mg/dL 70-105 Bedside Glucose ATHVanessa ORDOÑEZ ([facility]) ID Date Data Source [id number] 03/18/2020 04:52:00 PM EST ROMAN ([facility]) Name Value Range Interpretation Code Description Data Kaye rce(s) Supporting Document(s) bedside glucose 94 mg/dL 70-105 Bedside Glucose ATHE TIAGO ([facility]) ID Date Data Source [id number] 03/18/2020 04:52:00 PM EST ROMAN ([facility]) Name Value Range Interpretation Code Description Data Kaye rce(s) Supporting Document(s) bedside glucose 94 mg/dL 70-105 Bedside Glucose ATHVanessa ORDOÑEZ ([facility]) ID Date Data Source [id number] 03/18/2020 04:11:00 PM EST ROMAN ([facility]) Name Value Range Interpretation Code Description Data Kaye rce(s) Supporting Document(s) glucose, fasting 116 mg/dL 70-100 Above high normal Glucose, Fas ting [place] ([facility]) blood urea nitrogen 26 mg/dL 7-18 Above high normal Blood Ure a Nitrogen ROMAN ([facility]) creatinine for GFR 1.25 mg/dL 0.55-1.30 Creatinine for GF R ROMAN ([facility]) glomerular filtration rate >58 Glomerula r Filtration Rate ROM[place] ([facility]) sodium level 140 mEq/L 136-145 Sodium Level [place] ([facility]) potassium serum 3.6 mEq/L 3.5-5.1 Potassium Serum ATHE ([facility]) chloride level 112 mEq/L 98-107 Above high normal Chloride Level [place] ([facility]) anion gap 10 mEq/L 8-16 Anion Gap ROMAN ([facility]) carbon dioxide level 18 mEq/L 21-32 Below low normal Carbon Di oxide [facility] calcium level 7.7 mg/dL 8.5-10.1 Below low normal Calcium Level AT [facility] ([facility]) ID Date Data Source [id number] 03/18/2020 04:11:00 PM EST [place] ([facility]) Name Value Range Interpretation Code Description Data Kaye rce(s) Supporting Document(s) glucose, fasting 116 mg/dL 70-100 Above high normal Glucose, Fas ting ROMAN ([facility]) blood urea nitrogen 26 mg/dL 7-18 Above high normal Blood Ure a Nitrogen ROM[place] ([facility]) glomerular filtration rate >58 Glomerula r Filtration Rate [place] ([facility]) creatinine for GFR 1.25 mg/dL 0.55-1.30 Creatinine for GF R [place] ([facility]) sodium level 140 mEq/L 136-145 Sodium Level ROMAN ([facility]) chloride level 112 mEq/L 98-107 Above high normal Chloride Level ROM[place] ([facility]) potassium serum 3.6 mEq/L 3.5-5.1 Potassium Serum ATHE NA ([facility]) carbon dioxide level 18 mEq/L 21-32 Below low normal Carbon Di oxide Level [place] ([facility]) anion gap 10 mEq/L 8-16 Anion Gap ROMAN ([facility]) calcium level 7.7 mg/dL 8.5-10.1 Below low normal Calcium Level AT [facility] ([facility]) ID Date Data Source [id number] 03/18/2020 04:11:00 PM EST [place] ([facility]) Name Value Range Interpretation Code Description Data Kaye rce(s) Supporting Document(s) glucose, fasting 116 mg/dL 70-100 Above high normal Glucose, Fas ting [place] ([facility]) blood urea nitrogen 26 mg/dL 7-18 Above high normal Blood Ure a Nitrogen ROMAN ([facility]) creatinine for GFR 1.25 mg/dL 0.55-1.30 Creatinine for GF R ROMAN ([facility]) glomerular filtration rate >58 Glomerula r Filtration Rate ROM[place] ([facility]) potassium serum 3.6 mEq/L 3.5-5.1 Potassium Serum ATHE NA ([facility]) sodium level 140 mEq/L 136-145 Sodium Level ROM[place] ([facility]) chloride level 112 mEq/L 98-107 Above high normal Chloride Level [place] ([facility]) carbon dioxide level 18 mEq/L 21-32 Below low normal Carbon Di oxide Level [place] ([facility]) calcium level 7.7 mg/dL 8.5-10.1 Below low normal Calcium Level AT [facility] ([facility]) anion gap 10 mEq/L 8-16 Anion Gap ROMAN ([facility]) ID Date Data Source [id number] 03/18/2020 04:11:00 PM EST [place] ([facility]) Name Value Range Interpretation Code Description Data Kaye rce(s) Supporting Document(s) glucose, fasting 116 mg/dL 70-100 Above high normal Glucose, Fas ting ROMAN ([facility]) blood urea nitrogen 26 mg/dL 7-18 Above high normal Blood Ure a Nitrogen ROM[place] ([facility]) creatinine for GFR 1.25 mg/dL 0.55-1.30 Creatinine for GF R ROMAN ([facility]) glomerular filtration rate >58 Glomerula r Filtration Rate ROMAN ([facility]) sodium level 140 mEq/L 136-145 Sodium Level ROM[place] ([facility]) potassium serum 3.6 mEq/L 3.5-5.1 Potassium Serum ATHE NA ([facility]) chloride level 112 mEq/L 98-107 Above high normal Chloride Level ROM[place] ([facility]) carbon dioxide level 18 mEq/L 21-32 Below low normal Carbon Di oxide Level ROMAN ([facility]) anion gap 10 mEq/L 8-16 Anion Gap ROM[place] ([facility]) calcium level 7.7 mg/dL 8.5-10.1 Below low normal Calcium Level AT [facility] ([facility]) ID Date Data Source [id number] 03/18/2020 04:11:00 PM EST ROMAN ([facility]) Name Value Range Interpretation Code Description Data Kaye rce(s) Supporting Document(s) glucose, fasting 116 mg/dL 70-100 Above high normal Glucose, Fas ting ROMAN ([facility]) blood urea nitrogen 26 mg/dL 7-18 Above high normal Blood Ure a Nitrogen ROMAN ([facility]) glomerular filtration rate >58 Glomerula r Filtration Rate ROMAN ([facility]) creatinine for GFR 1.25 mg/dL 0.55-1.30 Creatinine for GF R ROMAN ([facility]) potassium serum 3.6 mEq/L 3.5-5.1 Potassium Serum ATHE NA ([facility]) sodium level 140 mEq/L 136-145 Sodium Level ROMAN ([facility]) chloride level 112 mEq/L 98-107 Above high normal Chloride Level [place] ([facility]) anion gap 10 mEq/L 8-16 Anion Gap ROMAN ([facility]) carbon dioxide level 18 mEq/L 21-32 Below low normal Carbon Di oxide Level [place] ([facility]) calcium level 7.7 mg/dL 8.5-10.1 Below low normal Calcium Level AT [facility] ([facility]) ID Date Data Source [id number] 03/18/2020 04:11:00 PM EST ROMAN ([facility]) Name Value Range Interpretation Code Description Data Kaye rce(s) Supporting Document(s) glucose, fasting 116 mg/dL 70-100 Above high normal Glucose, Fas ting [place] ([facility]) blood urea nitrogen 26 mg/dL 7-18 Above high normal Blood Ure a Nitrogen ROM[place] ([facility]) creatinine for GFR 1.25 mg/dL 0.55-1.30 Creatinine for GF R ROMAN ([facility]) glomerular filtration rate >58 Glomerula r Filtration Rate ROM[place] ([facility]) sodium level 140 mEq/L 136-145 Sodium Level ROM[place] ([facility]) potassium serum 3.6 mEq/L 3.5-5.1 Potassium Serum ATHE NA ([facility]) carbon dioxide level 18 mEq/L 21-32 Below low normal Carbon Di oxide Level [place] ([facility]) chloride level 112 mEq/L 98-107 Above high normal Chloride Level [place] ([facility]) anion gap 10 mEq/L 8-16 Anion Gap ROM[place] ([facility]) calcium level 7.7 mg/dL 8.5-10.1 Below low normal Calcium Level AT [facility] ([facility]) ID Date Data Source [id number] 03/18/2020 10:59:00 AM EST [place] ([facility]) Name Value Range Interpretation Code Description Data Kaye rce(s) Supporting Document(s) bedside glucose 195 mg/dL 70-105 Above high normal Bedside Gluco se [place] ([facility]) ID Date Data Source [id number] 03/18/2020 10:59:00 AM EST [place] ([facility]) Name Value Range Interpretation Code Description Data Kaye rce(s) Supporting Document(s) bedside glucose 195 mg/dL 70-105 Above high normal Bedside Gluco se [place] ([facility]) ID Date Data Source [id number] 03/18/2020 10:59:00 AM EST [place] ([facility]) Name Value Range Interpretation Code Description Data Kaye rce(s) Supporting Document(s) bedside glucose 195 mg/dL 70-105 Above high normal Bedside Gluco se [place] ([facility]) ID Date Data Source [id number] 03/18/2020 10:59:00 AM EST [place] ([facility]) Name Value Range Interpretation Code Description Data Kaye rce(s) Supporting Document(s) bedside glucose 195 mg/dL 70-105 Above high normal Bedside Gluco se [place] ([facility]) ID Date Data Source [id number] 03/18/2020 10:59:00 AM EST [place] ([facility]) Name Value Range Interpretation Code Description Data Kaye rce(s) Supporting Document(s) bedside glucose 195 mg/dL 70-105 Above high normal Bedside Gluco se [place] ([facility]) ID Date Data Source [id number] 03/18/2020 10:59:00 AM EST [place] ([facility]) Name Value Range Interpretation Code Description Data Kaye rce(s) Supporting Document(s) bedside glucose 195 mg/dL 70-105 Above high normal Bedside Gluco se [place] ([facility]) ID Date Data Source [id number] 03/18/2020 07:39:00 AM EST [place] ([facility]) Name Value Range Interpretation Code Description Data Kaye rce(s) Supporting Document(s) blood urea nitrogen 30 mg/dL 7-18 Above high normal Blood Ure a Nitrogen ROM[place] ([facility]) glucose, fasting 67 mg/dL 70-100 Below low normal Glucose, Fast ing ROMAN ([facility]) glomerular filtration rate >58 Below low normal Beata merular Filtration Rate ROMAN ([facility]) creatinine for GFR 1.33 mg/dL 0.55-1.30 Above high normal Creatinine for GFR [place] ([facility]) sodium level 140 mEq/L 136-145 Sodium Level ROMAN ([facility]) chloride level 109 mEq/L 98-107 Above high normal Chloride Level ROM[place] ([facility]) potassium serum 3.9 mEq/L 3.5-5.1 Potassium Serum ATHE NA ([facility]) carbon dioxide level 22 mEq/L 21-32 Carbon Dioxide Level ROM[place] ([facility]) anion gap 9 mEq/L 8-16 Anion Gap ROMAN ([facility]) calcium level 8.0 mg/dL 8.5-10.1 Below low normal Calcium Level AT [facility]) ID Date Data Source [id number] 03/18/2020 07:39:00 AM EST [place] ([facility]) Name Value Range Interpretation Code Description Data Kaye rce(s) Supporting Document(s) white blood count 9.7 10 4.0-10.0 White Blood Count [place] ([facility]) red blood count 3.35 10 4.00-5.40 Below low normal Red Blood Coun t [place] ([facility]) hemoglobin 9.4 g/dL 12.0-15.5 Below low normal Hemoglobin [place] ( [facility]) hematocrit 28.8 % 36.0-47.0 Below low normal Hematocrit [place] ( [facility]) mean corpuscular volume 86.0 fL 80.0-96.0 Mean Corpusc ular Volume [place] ([facility]) mean corpuscular hemoglobin 28.1 pg 27.0-33.0 Mean Cor puscular Hemoglobin [place] ([facility]) mean corpuscular HGB conc 32.6 g/dL 32.0-36.5 Mean Corpu scular HGB Conc [place] ([facility]) platelet count, automated 270 10 150-450 Platelet C ount, Automated ROMAN ([facility]) red cell distribution width 15.9 % 11.5-14.5 Above high no rmal Red Cell Distribution Width [place] ([facility]) nucleated red blood cell % 0.0 % 0-0 Nucleated Red Blood Cell % [place] ([facility]) ID Date Data Source [id number] 03/18/2020 07:39:00 AM EST [place] ([facility]) Name Value Range Interpretation Code Description Data Kaye rce(s) Supporting Document(s) glucose, fasting 67 mg/dL 70-100 Below low normal Glucose, Fast ing ROMAN ([facility]) blood urea nitrogen 30 mg/dL 7-18 Above high normal Blood Ure a Nitrogen ROM[place] ([facility]) creatinine for GFR 1.33 mg/dL 0.55-1.30 Above high normal Creatinine for GFR [place] ([facility]) glomerular filtration rate >58 Below low normal Beata merular Filtration Rate [place] ([facility]) potassium serum 3.9 mEq/L 3.5-5.1 Potassium Serum ATHE NA ([facility]) sodium level 140 mEq/L 136-145 Sodium Level ROMAN ([facility]) carbon dioxide level 22 mEq/L 21-32 Carbon Dioxide Level [place] ([facility]) chloride level 109 mEq/L 98-107 Above high normal Chloride Level [place] ([facility]) anion gap 9 mEq/L 8-16 Anion Gap ROM[place] ([facility]) calcium level 8.0 mg/dL 8.5-10.1 Below low normal Calcium Level AT [facility]) ID Date Data Source [id number] 03/18/2020 07:39:00 AM EST [facility]) Name Value Range Interpretation Code Description Data Kaye rce(s) Supporting Document(s) white blood count 9.7 10 4.0-10.0 White Blood Count [place] ([facility]) red blood count 3.35 10 4.00-5.40 Below low normal Red Blood Coun t ROMAN ([facility]) hematocrit 28.8 % 36.0-47.0 Below low normal Hematocrit [place] ( [facility]) hemoglobin 9.4 g/dL 12.0-15.5 Below low normal Hemoglobin [place] ( [facility]) mean corpuscular volume 86.0 fL 80.0-96.0 Mean Corpusc ular Volume ROMAN ([facility]) mean corpuscular HGB conc 32.6 g/dL 32.0-36.5 Mean Corpu scular HGB Conc [place] ([facility]) mean corpuscular hemoglobin 28.1 pg 27.0-33.0 Mean Cor puscular Hemoglobin [place] ([facility]) platelet count, automated 270 10 150-450 [facility] red cell distribution width 15.9 % 11.5-14.5 Above high no rmal Red Cell Distribution Width [place] ([facility]) nucleated red blood cell % 0.0 % 0-0 Nucleated Red Blood Cell % [place] ([facility]) ID Date Data Source [id number] 03/18/2020 07:39:00 AM EST [place] ([facility]) Name Value Range Interpretation Code Description Data Kaye rce(s) Supporting Document(s) glucose, fasting 67 mg/dL 70-100 Below low normal Glucose, Fast ing [place] ([facility]) creatinine for GFR 1.33 mg/dL 0.55-1.30 Above high normal Creatinine for GFR [place] ([facility]) blood urea nitrogen 30 mg/dL 7-18 Above high normal Blood Ure a Nitrogen [place] ([facility]) glomerular filtration rate >58 Below low normal Beata merular Filtration Rate ROM[place] ([facility]) sodium level 140 mEq/L 136-145 Sodium Level ROM[place] ([facility]) potassium serum 3.9 mEq/L 3.5-5.1 Potassium Serum ATH NA ([facility]) chloride level 109 mEq/L 98-107 Above high normal Chloride Level [place] ([facility]) carbon dioxide level 22 mEq/L 21-32 Carbon Dioxide Level [place] ([facility]) anion gap 9 mEq/L 8-16 Anion Gap ROMAN ([facility]) calcium level 8.0 mg/dL 8.5-10.1 Below low normal Calcium Level AT [facility]) ID Date Data Source [id number] 03/18/2020 07:39:00 AM EST [place] ([facility]) Name Value Range Interpretation Code Description Data Kaye rce(s) Supporting Document(s) white blood count 9.7 10 4.0-10.0 White Blood Count [place] ([facility]) red blood count 3.35 10 4.00-5.40 Below low normal Red Blood Coun t [place] ([facility]) hematocrit 28.8 % 36.0-47.0 Below low normal Hematocrit [place] ( [facility]) hemoglobin 9.4 g/dL 12.0-15.5 Below low normal Hemoglobin [place] ( [facility]) mean corpuscular volume 86.0 fL 80.0-96.0 Mean Corpusc ular Volume [place] ([facility]) mean corpuscular hemoglobin 28.1 pg 27.0-33.0 Mean Cor puscular Hemoglobin [place] ([facility]) mean corpuscular HGB conc 32.6 g/dL 32.0-36.5 Mean Corpu scular HGB Conc [place] ([facility]) red cell distribution width 15.9 % 11.5-14.5 Above high no rmal Red Cell Distribution Width [place] ([facility]) platelet count, automated 270 10 150-450 Platelet C ount, Automated [place] ([facility]) nucleated red blood cell % 0.0 % 0-0 Nucleated Red Blood Cell % [place] ([facility]) ID Date Data Source [id number] 03/18/2020 07:39:00 AM EST [facility]) Name Value Range Interpretation Code Description Data Kaye rce(s) Supporting Document(s) glucose, fasting 67 mg/dL 70-100 Below low normal Glucose, Fast ing [place] ([facility]) blood urea nitrogen 30 mg/dL 7-18 Above high normal Blood Ure a Nitrogen [place] ([facility]) creatinine for GFR 1.33 mg/dL 0.55-1.30 Above high normal Creatinine for GFR [place] ([facility]) glomerular filtration rate >58 Below low normal Beata merular Filtration Rate [place] ([facility]) potassium serum 3.9 mEq/L 3.5-5.1 Potassium Serum [place] ([facility]) sodium level 140 mEq/L 136-145 Sodium Level [place] ([facility]) chloride level 109 mEq/L 98-107 Above high normal Chloride Level [place] ([facility]) carbon dioxide level 22 mEq/L 21-32 Carbon Dioxide Level [place] ([facility]) calcium level 8.0 mg/dL 8.5-10.1 Below low normal Calcium Level AT [place] ([facility]) anion gap 9 mEq/L 8-16 Anion Gap [place] ([facility]) ID Date Data Source [id number] 03/18/2020 07:39:00 AM EST [place] ([facility]) Name Value Range Interpretation Code Description Data Kaye rce(s) Supporting Document(s) white blood count 9.7 10 4.0-10.0 White Blood Count [place] ([facility]) red blood count 3.35 10 4.00-5.40 Below low normal Red Blood Coun t [place] ([facility]) hematocrit 28.8 % 36.0-47.0 Below low normal Hematocrit [place] ( [facility]) hemoglobin 9.4 g/dL 12.0-15.5 Below low normal Hemoglobin [place] ( [facility]) mean corpuscular volume 86.0 fL 80.0-96.0 Mean Corpusc ular Volume [place] ([facility]) mean corpuscular hemoglobin 28.1 pg 27.0-33.0 Mean Cor puscular Hemoglobin [place] ([facility]) mean corpuscular HGB conc 32.6 g/dL 32.0-36.5 Mean Corpu scular HGB Conc [place] ([facility]) red cell distribution width 15.9 % 11.5-14.5 Above high no rmal Red Cell Distribution Width [place] ([facility]) nucleated red blood cell % 0.0 % 0-0 Nucleated Red Blood Cell % [place] ([facility]) platelet count, automated 270 10 150-450 Platelet C ount, Automated [facility]) ID Date Data Source [id number] 03/18/2020 07:39:00 AM EST [place] ([facility]) Name Value Range Interpretation Code Description Data Kaye rce(s) Supporting Document(s) glucose, fasting 67 mg/dL 70-100 Below low normal Glucose, Fast ing [place] ([facility]) creatinine for GFR 1.33 mg/dL 0.55-1.30 Above high normal Creatinine for GFR [place] ([facility]) blood urea nitrogen 30 mg/dL 7-18 Above high normal Blood Ure a Nitrogen [place] ([facility]) glomerular filtration rate >58 Below low normal Beata merular Filtration Rate [place] ([facility]) sodium level 140 mEq/L 136-145 Sodium Level [place] ([facility]) potassium serum 3.9 mEq/L 3.5-5.1 Potassium Serum [place] ([facility]) carbon dioxide level 22 mEq/L 21-32 Carbon Dioxide Level [place] ([facility]) chloride level 109 mEq/L 98-107 Above high normal Chloride Level [place] ([facility]) anion gap 9 mEq/L 8-16 Anion Gap [place] ([facility]) calcium level 8.0 mg/dL 8.5-10.1 Below low normal Calcium Level AT [facility]) ID Date Data Source [id number] 03/18/2020 07:39:00 AM EST [facility]) Name Value Range Interpretation Code Description Data Kaye rce(s) Supporting Document(s) red blood count 3.35 10 4.00-5.40 Below low normal Red Blood Coun t [place] ([facility]) white blood count 9.7 10 4.0-10.0 White Blood Count [place] ([facility]) hemoglobin 9.4 g/dL 12.0-15.5 Below low normal Hemoglobin [place] ( [facility]) hematocrit 28.8 % 36.0-47.0 Below low normal Hematocrit [place] ( [facility]) mean corpuscular volume 86.0 fL 80.0-96.0 Mean Corpusc ular Volume [place] ([facility]) mean corpuscular hemoglobin 28.1 pg 27.0-33.0 Mean Cor puscular Hemoglobin [place] ([facility]) mean corpuscular HGB conc 32.6 g/dL 32.0-36.5 Mean Corpu scular HGB Conc [place] ([facility]) red cell distribution width 15.9 % 11.5-14.5 Above high no rmal Red Cell Distribution Width [place] ([facility]) platelet count, automated 270 10 150-450 Platelet C ount, Automated [place] ([facility]) nucleated red blood cell % 0.0 % 0-0 Nucleated Red Blood Cell % [place] ([facility]) ID Date Data Source [id number] 03/18/2020 07:39:00 AM EST [place] ([facility]) Name Value Range Interpretation Code Description Data Kaye rce(s) Supporting Document(s) glucose, fasting 67 mg/dL 70-100 Below low normal Glucose, Fast ing [place] ([facility]) blood urea nitrogen 30 mg/dL 7-18 Above high normal Blood Ure a Nitrogen [place] ([facility]) creatinine for GFR 1.33 mg/dL 0.55-1.30 Above high normal Creatinine for GFR [place] ([facility]) glomerular filtration rate >58 Below low normal Beata merular Filtration Rate [place] ([facility]) sodium level 140 mEq/L 136-145 Sodium Level [place] ([facility]) chloride level 109 mEq/L 98-107 Above high normal Chloride Level [place] ([facility]) potassium serum 3.9 mEq/L 3.5-5.1 Potassium Serum [place] ([facility]) carbon dioxide level 22 mEq/L 21-32 Carbon Dioxide Level [place] ([facility]) anion gap 9 mEq/L 8-16 Anion Gap [place] ([facility]) calcium level 8.0 mg/dL 8.5-10.1 Below low normal Calcium Level AT [facility] ([facility]) ID Date Data Source [id number] 03/18/2020 07:39:00 AM EST [place] ([facility]) Name Value Range Interpretation Code Description Data Kaye rce(s) Supporting Document(s) white blood count 9.7 10 4.0-10.0 White Blood Count [place] ([facility]) red blood count 3.35 10 4.00-5.40 Below low normal Red Blood Coun t [place] ([facility]) hemoglobin 9.4 g/dL 12.0-15.5 Below low normal Hemoglobin [place] ( [facility]) hematocrit 28.8 % 36.0-47.0 Below low normal Hematocrit [place] ( [facility]) mean corpuscular volume 86.0 fL 80.0-96.0 Mean Corpusc ular Volume [place] ([facility]) mean corpuscular hemoglobin 28.1 pg 27.0-33.0 Mean Cor puscular Hemoglobin [place] ([facility]) mean corpuscular HGB conc 32.6 g/dL 32.0-36.5 Mean Corpu scular HGB Conc [place] ([facility]) red cell distribution width 15.9 % 11.5-14.5 Above high no rmal Red Cell Distribution Width [place] ([facility]) platelet count, automated 270 10 150-450 Platelet C ount, Automated [place] ([facility]) nucleated red blood cell % 0.0 % 0-0 Nucleated Red Blood Cell % [place] ([facility]) ID Date Data Source [id number] 03/18/2020 07:01:00 AM EST [place] ([facility]) Name Value Range Interpretation Code Description Data Kaye rce(s) Supporting Document(s) bedside glucose 57 mg/dL 70-105 Below low normal Bedside Glucos e [place] ([facility]) ID Date Data Source [id number] 03/18[facility]2020 [facility] Name Value Range Interpretation Code Description Data Kaye rce(s) Supporting Document(s) bedside glucose 57 mg/dL 70-105 Below low normal Bedside Glucos e [place] ([facility]) ID Date Data Source [id number] 03/18/2020 07:01:00 AM EST [place] ([facility]) Name Value Range Interpretation Code Description Data Kaye rce(s) Supporting Document(s) bedside glucose 57 mg/dL 70-105 Below low normal Bedside Glucos e [place] ([facility]) ID Date Data Source [id number] 03/18/2020 07:01:00 AM EST [place] ([facility]) Name Value Range Interpretation Code Description Data Kaye rce(s) Supporting Document(s) bedside glucose 57 mg/dL 70-105 Below low normal Bedside Glucos e [place] ([facility]) ID Date Data Source [id number] 03/18/2020 07:01:00 AM EST [place] ([facility]) Name Value Range Interpretation Code Description Data Kaye rce(s) Supporting Document(s) bedside glucose 57 mg/dL 70-105 Below low normal Bedside Glucos e [place] ([facility]) ID Date Data Source [id number] 03/18/2020 07:01:00 AM EST [place] ([facility]) Name Value Range Interpretation Code Description Data Kaye rce(s) Supporting Document(s) bedside glucose 57 mg/dL 70-105 Below low normal Bedside Glucos e [place] ([facility]) ID Date Data Source [id number] 03/18/2020 01:02:00 AM EST [place] ([facility]) Name Value Range Interpretation Code Description Data Kaye rce(s) Supporting Document(s) glucose, fasting 292 mg/dL 70-100 Above high normal Glucose, Fas ting [place] ([facility]) blood urea nitrogen 36 mg/dL 7-18 Above high normal Blood Ure a Nitrogen [place] ([facility]) creatinine for GFR 1.39 mg/dL 0.55-1.30 Above high normal Creatinine for GFR [place] ([facility]) glomerular filtration rate >58 Below low normal Beata merular Filtration Rate [place] ([facility]) sodium level 138 mEq/L 136-145 Sodium Level [place] ([facility]) potassium serum 4.3 mEq/L 3.5-5.1 Potassium Serum [place] ([facility]) chloride level 106 mEq/L 98-107 Chloride Level [place] ([facility]) carbon dioxide level 16 mEq/L 21-32 Below low normal Carbon Di oxide Level [place] ([facility]) anion gap 16 mEq/L 8-16 Anion Gap [place] ([facility]) calcium level 8.3 mg/dL 8.5-10.1 Below low normal Calcium Level AT [facility]) ID Date Data Source [id number] 03/18/2020 01:02:00 AM EST [place] ([facility]) Name Value Range Interpretation Code Description Data Kaye rce(s) Supporting Document(s) glucose, fasting 292 mg/dL 70-100 Above high normal Glucose, Fas ting [place] ([facility]) blood urea nitrogen 36 mg/dL 7-18 Above high normal Blood Ure a Nitrogen [place] ([facility]) creatinine for GFR 1.39 mg/dL 0.55-1.30 Above high normal Creatinine for GFR [place] ([facility]) sodium level 138 mEq/L 136-145 Sodium Level [place] ([facility]) glomerular filtration rate >58 Below low normal Beata merular Filtration Rate [place] ([facility]) potassium serum 4.3 mEq/L 3.5-5.1 Potassium Serum [place] ([facility]) chloride level 106 mEq/L 98-107 Chloride Level [place] ([facility]) carbon dioxide level 16 mEq/L 21-32 Below low normal Carbon Di oxide Level [place] ([facility]) anion gap 16 mEq/L 8-16 Anion Gap [place] ([facility]) calcium level 8.3 mg/dL 8.5-10.1 Below low normal Calcium Level AT [facility] ([facility]) ID Date Data Source [id number] 03/18/2020 01:02:00 AM EST [place] ([facility]) Name Value Range Interpretation Code Description Data Kaye rce(s) Supporting Document(s) glucose, fasting 292 mg/dL 70-100 Above high normal Glucose, Fas ting [place] ([facility]) blood urea nitrogen 36 mg/dL 7-18 Above high normal Blood Ure a Nitrogen [place] ([facility]) glomerular filtration rate >58 Below low normal Beata merular Filtration Rate [place] ([facility]) creatinine for GFR 1.39 mg/dL 0.55-1.30 Above high normal Creatinine for GFR [place] ([facility]) potassium serum 4.3 mEq/L 3.5-5.1 Potassium Serum [place] ([facility]) sodium level 138 mEq/L 136-145 Sodium Level [place] ([facility]) chloride level 106 mEq/L 98-107 Chloride Level [place] ([facility]) anion gap 16 mEq/L 8-16 Anion Gap [place] ([facility]) carbon dioxide level 16 mEq/L 21-32 Below low normal Carbon Di oxide Level [place] ([facility]) calcium level 8.3 mg/dL 8.5-10.1 Below low normal Calcium Level AT [facility] ([facility]) ID Date Data Source [id number] 03/18/2020 01:02:00 AM EST [place] ([facility]) Name Value Range Interpretation Code Description Data Kaye rce(s) Supporting Document(s) glucose, fasting 292 mg/dL 70-100 Above high normal Glucose, Fas ting [place] ([facility]) blood urea nitrogen 36 mg/dL 7-18 Above high normal Blood Ure a Nitrogen [place] ([facility]) creatinine for GFR 1.39 mg/dL 0.55-1.30 Above high normal Creatinine for GFR [place] ([facility]) sodium level 138 mEq/L 136-145 Sodium Level [place] ([facility]) glomerular filtration rate >58 Below low normal Beata merular Filtration Rate [place] ([facility]) potassium serum 4.3 mEq/L 3.5-5.1 Potassium Serum [place] ([facility]) chloride level 106 mEq/L 98-107 Chloride Level [place] ([facility]) carbon dioxide level 16 mEq/L 21-32 Below low normal Carbon Di oxide Level [place] ([facility]) anion gap 16 mEq/L 8-16 Anion Gap [place] ([facility]) calcium level 8.3 mg/dL 8.5-10.1 Below low normal Calcium Level AT [facility]) ID Date Data Source [id number] 03/18/2020 01:02:00 AM EST [place] ([facility]) Name Value Range Interpretation Code Description Data Kaye rce(s) Supporting Document(s) glucose, fasting 292 mg/dL 70-100 Above high normal Glucose, Fas ting [place] ([facility]) creatinine for GFR 1.39 mg/dL 0.55-1.30 Above high normal Creatinine for GFR [place] ([facility]) blood urea nitrogen 36 mg/dL 7-18 Above high normal Blood Ure a Nitrogen [place] ([facility]) glomerular filtration rate >58 Below low normal Beata merular Filtration Rate [place] ([facility]) potassium serum 4.3 mEq/L 3.5-5.1 Potassium Serum [place] ([facility]) sodium level 138 mEq/L 136-145 Sodium Level [place] ([facility]) chloride level 106 mEq/L 98-107 Chloride Level [place] ([facility]) carbon dioxide level 16 mEq/L 21-32 Below low normal Carbon Di oxide Level [place] ([facility]) anion gap 16 mEq/L 8-16 Anion Gap [place] ([facility]) calcium level 8.3 mg/dL 8.5-10.1 Below low normal Calcium Level AT [facility]) ID Date Data Source [id number] 03/18/2020 01:02:00 AM EST [place] ([facility]) Name Value Range Interpretation Code Description Data Kaye rce(s) Supporting Document(s) glucose, fasting 292 mg/dL 70-100 Above high normal Glucose, Fas ting [place] ([facility]) blood urea nitrogen 36 mg/dL 7-18 Above high normal [facility] creatinine for GFR 1.39 mg/dL 0.55-1.30 Above high normal Creatinine for GFR [place] ([facility]) glomerular filtration rate >58 Below low normal Beata merular Filtration Rate [place] ([facility]) potassium serum 4.3 mEq/L 3.5-5.1 Potassium Serum [place] ([facility]) sodium level 138 mEq/L 136-145 Sodium Level [place] ([facility]) chloride level 106 mEq/L 98-107 Chloride Level [place] ([facility]) carbon dioxide level 16 mEq/L 21-32 Below low normal Carbon Di oxide Level [place] ([facility]) anion gap 16 mEq/L 8-16 Anion Gap [place] ([facility]) calcium level 8.3 mg/dL 8.5-10.1 Below low normal Calcium Level AT [facility] ([facility]) ID Date Data Source [id number] 03/18/2020 12:00:00 AM EST [facility]) Name Value Range Interpretation Code Description Data Kaye rce(s) Supporting Document(s) bedside glucose 282 mg/dL 70-105 Above high normal Bedside Gluco se [facility]) ID Date Data Source [id number] 03/18/2020 12:00:00 AM EST [facility]) Name Value Range Interpretation Code Description Data Kaye rce(s) Supporting Document(s) bedside glucose 282 mg/dL 70-105 Above high normal Bedside Gluco se [facility]) ID Date Data Source [id number] 03/18/2020 12:00:00 [facility] Name Value Range Interpretation Code Description Data Kaye rce(s) Supporting Document(s) bedside glucose 282 mg/dL 70-105 Above high normal Bedside Gluco se [facility]) ID Date Data Source [id number] 03/18/2020 12:00:00 AM EST [facility]) Name Value Range Interpretation Code Description Data Kaye rce(s) Supporting Document(s) bedside glucose 282 mg/dL 70-105 Above high normal Bedside Gluco se [place] ([facility]) ID Date Data Source [id number] 03/18/2020 12:00:00 AM EST [place] ([facility]) Name Value Range Interpretation Code Description Data Kaye rce(s) Supporting Document(s) bedside glucose 282 mg/dL 70-105 Above high normal Bedside Gluco se [place] ([facility]) ID Date Data Source [id number] 03/18/2020 12:00:00 AM EST [place] ([facility]) Name Value Range Interpretation Code Description Data Kaye rce(s) Supporting Document(s) bedside glucose 282 mg/dL 70-105 Above high normal Bedside Gluco se [place] ([facility]) ID Date Data Source [id number] 03/17/2020 09:33:00 PM EST [place] ([facility]) Name Value Range Interpretation Code Description Data Kaye rce(s) Supporting Document(s) bedside glucose 227 mg/dL 70-105 Above high normal Bedside Gluco se [place] ([facility]) ID Date Data Source [id number] 03/17/2020 09:33:00 PM EST [place] ([facility]) Name Value Range Interpretation Code Description Data Kaye rce(s) Supporting Document(s) bedside glucose 227 mg/dL 70-105 Above high normal Bedside Gluco se [place] ([facility]) ID Date Data Source [id number] 03/17/2020 09:33:00 PM EST [place] ([facility]) Name Value Range Interpretation Code Description Data Kaye rce(s) Supporting Document(s) bedside glucose 227 mg/dL 70-105 Above high normal Bedside Gluco se [place] ([facility]) ID Date Data Source [id number] 03/17/2020 09:33:00 PM EST [place] ([facility]) Name Value Range Interpretation Code Description Data Kaye rce(s) Supporting Document(s) bedside glucose 227 mg/dL 70-105 Above high normal Bedside Gluco se [place] ([facility]) ID Date Data Source [id number] 03/17/2020 09:33:00 PM EST [place] ([facility]) Name Value Range Interpretation Code Description Data Kaye rce(s) Supporting Document(s) bedside glucose 227 mg/dL 70-105 Above high normal Bedside Gluco se [place] ([facility]) ID Date Data Source [id number] 03/17/2020 09:33:00 PM EST [place] ([facility]) Name Value Range Interpretation Code Description Data Kaye rce(s) Supporting Document(s) bedside glucose 227 mg/dL 70-105 Above high normal Bedside Gluco se [place] ([facility]) ID Date Data Source [id number] 03/17/2020 08:43:00 PM EST [facility]) Name Value Range Interpretation Code Description Data Kaye rce(s) Supporting Document(s) sars covid-19 amplification negative negative Sars Cov id-19 Amplification [facility]) ID Date Data Source [id number] 03/17/2020 08:43:00 PM EST [place] ([facility]) Name Value Range Interpretation Code Description Data Kaye rce(s) Supporting Document(s) sars covid-19 amplification negative negative Sars Cov id-19 Amplification [facility]) ID Date Data Source [id number] 03/17/2020 08:43:00 PM EST [facility]) Name Value Range Interpretation Code Description Data Kaye rce(s) Supporting Document(s) sars covid-19 amplification negative negative Sars Cov id-19 Amplification [facility]) ID Date Data Source [id number] 03/17/2020 08:43:00 PM EST [place] ([facility]) Name Value Range Interpretation Code Description Data Kaye rce(s) Supporting Document(s) sars covid-19 amplification negative negative Sars Cov id-19 Amplification [facility]) ID Date Data Source [id number] 03/17/2020 08:43:00 PM EST [place] ([facility]) Name Value Range Interpretation Code Description Data Kaye rce(s) Supporting Document(s) sars covid-19 amplification negative negative Sars Cov id-19 Amplification [facility]) ID Date Data Source [id number] 03/17/2020 08:43:00 PM EST [facility]) Name Value Range Interpretation Code Description Data Kaye rce(s) Supporting Document(s) sars covid-19 amplification negative negative Sars Cov id-19 Amplification [facility]) ID Date Data Source [id number] 03/17/2020 08:43:00 PM EST [facility] Name Value Range Interpretation Code Description Data Kaye rce(s) Supporting Document(s) SARS coronavirus 2 RNA [Presence] in Res piratory specimen by SULY with probe detection [facility] This lab was ordered by [facility] a nd reported by [facility]. ID Date Data Source [id number] 03/17/2020 07:07:00 PM EST [facility]) Name Value Range Interpretation Code Description Data Kaye rce(s) Supporting Document(s) bedside glucose 195 mg/dL 70-105 Above high normal Bedside Gluco se [facility]) ID Date Data Source [id number] 03/17/2020 07:07:00 PM EST [facility]) Name Value Range Interpretation Code Description Data Kaye rce(s) Supporting Document(s) bedside glucose 195 mg/dL 70-105 Above high normal Bedside Gluco se [place] ([facility]) ID Date Data Source [id number] 03/17/2020 07:07:00 PM EST [place] ([facility]) Name Value Range Interpretation Code Description Data Kaye rce(s) Supporting Document(s) bedside glucose 195 mg/dL 70-105 Above high normal Bedside Gluco se [place] ([facility]) ID Date Data Source [id number] 03/17/2020 07:07:00 PM EST [place] ([facility]) Name Value Range Interpretation Code Description Data Kaye rce(s) Supporting Document(s) bedside glucose 195 mg/dL 70-105 Above high normal Bedside Gluco se [place] ([facility]) ID Date Data Source [id number] 03/17/2020 07:07:00 PM EST [place] ([facility]) Name Value Range Interpretation Code Description Data Kaye rce(s) Supporting Document(s) bedside glucose 195 mg/dL 70-105 Above high normal Bedside Gluco se [place] ([facility]) ID Date Data Source [id number] 03/17/2020 07:07:00 PM EST [place] ([facility]) Name Value Range Interpretation Code Description Data Kaye rce(s) Supporting Document(s) bedside glucose 195 mg/dL 70-105 Above high normal Bedside Gluco se [place] ([facility]) ID Date Data Source [id number] 03/17/2020 06:47:00 PM EST [place] ([facility]) Name Value Range Interpretation Code Description Data Kaye rce(s) Supporting Document(s) glucose, fasting 224 mg/dL 70-100 Above high normal Glucose, Fas ting [place] ([facility]) blood urea nitrogen 39 mg/dL 7-18 Above high normal Blood Ure a Nitrogen [place] ([facility]) creatinine for GFR 1.46 mg/dL 0.55-1.30 Above high normal Creatinine for GFR [place] ([facility]) glomerular filtration rate >58 Below low normal Beata merular Filtration Rate [place] ([facility]) sodium level 141 mEq/L 136-145 Sodium Level [place] ([facility]) potassium serum 3.6 mEq/L 3.5-5.1 Potassium Serum [facility] ([facility]) chloride level 108 mEq/L 98-107 Above high normal Chloride Level [place] ([facility]) carbon dioxide level 20 mEq/L 21-32 Below low normal Carbon Di oxide Level [place] ([facility]) calcium level 7.6 mg/dL 8.5-10.1 Below low normal Calcium Level AT [facility] ([facility]) anion gap 13 mEq/L 8-16 Anion Gap [place] ([facility]) ID Date Data Source [id number] 03/17/2020 06:47:00 PM EST [place] ([facility]) Name Value Range Interpretation Code Description Data Kaye rce(s) Supporting Document(s) glucose, fasting 224 mg/dL 70-100 Above high normal Glucose, Fas ting [place] ([facility]) blood urea nitrogen 39 mg/dL 7-18 Above high normal Blood Ure a Nitrogen [place] ([facility]) glomerular filtration rate >58 Below low normal Beata merular Filtration Rate [place] ([facility]) creatinine for GFR 1.46 mg/dL 0.55-1.30 Above high normal Creatinine for GFR [place] ([facility]) sodium level 141 mEq/L 136-145 Sodium Level [place] ([facility]) chloride level 108 mEq/L 98-107 Above high normal Chloride Level [place] ([facility]) potassium serum 3.6 mEq/L 3.5-5.1 Potassium Serum [facility] [place] ([facility]) carbon dioxide level 20 mEq/L 21-32 Below low normal Carbon Di oxide Level [place] ([facility]) calcium level 7.6 mg/dL 8.5-10.1 Below low normal Calcium Level AT [facility]) anion gap 13 mEq/L 8-16 Anion Gap [place] ([facility]) ID Date Data Source [id number] 03/17/2020 06:47:00 PM EST [place] ([facility]) Name Value Range Interpretation Code Description Data Kaye rce(s) Supporting Document(s) blood urea nitrogen 39 mg/dL 7-18 Above high normal Blood Ure a Nitrogen [place] ([facility]) glucose, fasting 224 mg/dL 70-100 Above high normal Glucose, Fas ting [place] ([facility]) creatinine for GFR 1.46 mg/dL 0.55-1.30 Above high normal Creatinine for GFR [place] ([facility]) glomerular filtration rate >58 Below low normal Beata merular Filtration Rate [place] ([facility]) sodium level 141 mEq/L 136-145 Sodium Level [place] ([facility]) potassium serum 3.6 mEq/L 3.5-5.1 Potassium Serum [facility] ([facility]) carbon dioxide level 20 mEq/L 21-32 Below low normal Carbon Di oxide Level [place] ([facility]) chloride level 108 mEq/L 98-107 Above high normal Chloride Level [place] ([facility]) calcium level 7.6 mg/dL 8.5-10.1 Below low normal Calcium Level AT [facility] ([facility]) anion gap 13 mEq/L 8-16 Anion Gap [place] ([facility]) ID Date Data Source [id number] 03/17/2020 06:47:00 PM EST [place] ([facility]) Name Value Range Interpretation Code Description Data Kaye rce(s) Supporting Document(s) blood urea nitrogen 39 mg/dL 7-18 Above high normal Blood Ure a Nitrogen [place] ([facility]) glucose, fasting 224 mg/dL 70-100 Above high normal Glucose, Fas ting [place] ([facility]) creatinine for GFR 1.46 mg/dL 0.55-1.30 Above high normal Creatinine for GFR [place] ([facility]) glomerular filtration rate >58 Below low normal Beata merular Filtration Rate [place] ([facility]) sodium level 141 mEq/L 136-145 Sodium Level [place] ([facility]) potassium serum 3.6 mEq/L 3.5-5.1 Potassium Serum [facility] ([facility]) carbon dioxide level 20 mEq/L 21-32 Below low normal Carbon Di oxide Level [place] ([facility]) chloride level 108 mEq/L 98-107 Above high normal Chloride Level [place] ([facility]) anion gap 13 mEq/L 8-16 Anion Gap [place] ([facility]) calcium level 7.6 mg/dL 8.5-10.1 Below low normal Calcium Level AT [facility]) ID Date Data Source [id number] 03/17/2020 06:47:00 PM EST [place] ([facility]) Name Value Range Interpretation Code Description Data Kaye rce(s) Supporting Document(s) blood urea nitrogen 39 mg/dL 7-18 Above high normal Blood Ure a Nitrogen [place] ([facility]) glucose, fasting 224 mg/dL 70-100 Above high normal Glucose, Fas ting [place] ([facility]) glomerular filtration rate >58 Below low normal Beata merular Filtration Rate [place] ([facility]) creatinine for GFR 1.46 mg/dL 0.55-1.30 Above high normal Creatinine for GFR [place] ([facility]) potassium serum 3.6 mEq/L 3.5-5.1 Potassium Serum [place] ([facility]) sodium level 141 mEq/L 136-145 Sodium Level [place] ([facility]) chloride level 108 mEq/L 98-107 Above high normal Chloride Level [place] ([facility]) carbon dioxide level 20 mEq/L 21-32 Below low normal Carbon Di oxide Level [place] ([facility]) anion gap 13 mEq/L 8-16 Anion Gap [place] ([facility]) calcium level 7.6 mg/dL 8.5-10.1 Below low normal Calcium Level AT [facility]) ID Date Data Source [id number] 03/17/2020 06:47:00 PM EST [place] ([facility]) Name Value Range Interpretation Code Description Data Kaye rce(s) Supporting Document(s) glucose, fasting 224 mg/dL 70-100 Above high normal Glucose, Fas ting [place] ([facility]) blood urea nitrogen 39 mg/dL 7-18 Above high normal Blood Ure a Nitrogen [place] ([facility]) creatinine for GFR 1.46 mg/dL 0.55-1.30 Above high normal Creatinine for GFR [place] ([facility]) glomerular filtration rate >58 Below low normal Beata merular Filtration Rate [place] ([facility]) sodium level 141 mEq/L 136-145 Sodium Level [place] ([facility]) potassium serum 3.6 mEq/L 3.5-5.1 Potassium Serum [facility] ([facility]) chloride level 108 mEq/L 98-107 Above high normal Chloride Level [place] ([facility]) carbon dioxide level 20 mEq/L 21-32 Below low normal Carbon Di oxide Level [place] ([facility]) anion gap 13 mEq/L 8-16 Anion Gap [place] ([facility]) calcium level 7.6 mg/dL 8.5-10.1 Below low normal Calcium Level AT [facility] ([facility]) ID Date Data Source [id number] 03/17/2020 05:19:00 PM EST [place] ([facility]) Name Value Range Interpretation Code Description Data Kaye rce(s) Supporting Document(s) bedside glucose 329 mg/dL 70-105 Above high normal Bedside Gluco se [place] ([facility]) ID Date Data Source [id number] 03/17/2020 05:19:00 PM EST [place] ([facility]) Name Value Range Interpretation Code Description Data Kaye rce(s) Supporting Document(s) bedside glucose 329 mg/dL 70-105 Above high normal Bedside Gluco se [facility]) ID Date Data Source [id number] 03/17/2020 05:19:00 PM EST [place] ([facility]) Name Value Range Interpretation Code Description Data Kaye rce(s) Supporting Document(s) bedside glucose 329 mg/dL 70-105 Above high normal Bedside Gluco se [place] ([facility]) ID Date Data Source [id number] 03/17/2020 05:19:00 PM EST [place] ([facility]) Name Value Range Interpretation Code Description Data Kaye rce(s) Supporting Document(s) bedside glucose 329 mg/dL 70-105 Above high normal Bedside Gluco se [facility]) ID Date Data Source [id number] 03/17/2020 05:19:00 PM EST [place] ([facility]) Name Value Range Interpretation Code Description Data Kaye rce(s) Supporting Document(s) bedside glucose 329 mg/dL 70-105 Above high normal Bedside Gluco se [place] ([facility]) ID Date Data Source [id number] 03/17/2020 05:19:00 PM EST [place] ([facility]) Name Value Range Interpretation Code Description Data Kaye rce(s) Supporting Document(s) bedside glucose 329 mg/dL 70-105 Above high normal Bedside Gluco se [place] ([facility]) ID Date Data Source [id number] 02/19/2020 11:50:00 AM EST [place] ([facility]) Name Value Range Interpretation Code Description Data Kaye rce(s) Supporting Document(s) bedside glucose 180 mg/dL 70-105 Above high [facility] Date Data Source [id number] 02/19/2020 11:50:00 AM [facility] Name Value Range Interpretation Code Description Data Kaye rce(s) Supporting Document(s) bedside glucose 180 mg/dL 70-105 Above high normal Bedside Gluco se [place] ([facility]) ID Date Data Source [id number] 02/19/2020 11:50:00 AM EST [place] ([facility]) Name Value Range Interpretation Code Description Data Kaye rce(s) Supporting Document(s) bedside glucose 180 mg/dL 70-105 Above high normal Bedside Gluco se [place] ([facility]) ID Date Data Source [id number] 02/19/2020 11:50:00 AM EST [place] ([facility]) Name Value Range Interpretation Code Description Data Kaye rce(s) Supporting Document(s) bedside glucose 180 mg/dL 70-105 Above high normal Bedside Gluco se [place] ([facility]) ID Date Data Source [id number] 02/19/2020 11:50:00 AM EST [place] ([facility]) Name Value Range Interpretation Code Description Data Kaye rce(s) Supporting Document(s) bedside glucose 180 mg/dL 70-105 Above high normal Bedside Gluco se [place] ([facility]) ID Date Data Source [id number] 02/19/2020 11:50:00 AM EST [place] [facility]) Name Value Range Interpretation Code Description Data Kaye rce(s) Supporting Document(s) bedside glucose 180 mg/dL 70-105 Above high normal Bedside Gluco se [place] ([facility]) ID Date Data Source [id number] 02/19/2020 11:50:00 AM EST [place] ([facility]) Name Value Range Interpretation Code Description Data Kaye rce(s) Supporting Document(s) bedside glucose 180 mg/dL 70-105 Above high normal [facility] ID Date Data Source [id number] 02/19/2020 04:20:00 AM EST [place] ([facility]) Name Value Range Interpretation Code Description Data Kaye rce(s) Supporting Document(s) blood urea nitrogen 21 mg/dL 7-18 Above high normal Blood Ure a Nitrogen [place] ([facility]) glucose, fasting 139 mg/dL 70-100 Above high normal Glucose, Fas ting [place] ([facility]) creatinine for GFR 1.14 mg/dL 0.55-1.30 Creatinine for GF R [place] ([facility]) glomerular filtration rate > 60.0 >58 Glomerula r Filtration Rate [place] ([facility]) sodium level 138 mEq/L 136-145 Sodium Level [place] ([facility]) potassium serum 3.6 mEq/L 3.5-5.1 [facility] chloride level 109 mEq/L 98-107 Above high normal Chloride Level [place] ([facility]) anion gap 4 mEq/L 8-16 Below low normal Anion Gap [place] ( [facility]) carbon dioxide level 25 mEq/L 21-32 Carbon Dioxide Level [place] ([facility]) calcium level 8.4 mg/dL 8.5-10.1 Below low normal Calcium Level AT [facility] ([facility]) ID Date Data Source [id number] 02/19/2020 04:20:00 AM EST [place] ([facility]) Name Value Range Interpretation Code Description Data Kaye rce(s) Supporting Document(s) white blood count 5.8 10 4.0-10.0 White Blood Count [place] ([facility]) red blood count 3.11 10 4.00-5.40 Below low normal Red Blood Coun t [place] ([facility]) hematocrit 26.6 % 36.0-47.0 Below low normal Hematocrit [place] ( [facility]) hemoglobin 8.5 g/dL 12.0-15.5 Below low normal Hemoglobin [place] ( [facility]) mean corpuscular volume 85.5 fL 80.0-96.0 Mean Corpusc ular Volume [place] ([facility]) mean corpuscular hemoglobin 27.3 pg 27.0-33.0 Mean Cor puscular Hemoglobin [place] ([facility]) mean corpuscular HGB conc 32.0 g/dL 32.0-36.5 Mean Corpu scular HGB Conc [place] ([facility]) red cell distribution width 14.7 % 11.5-14.5 Above high no rmal Red Cell Distribution Width [place] ([facility]) platelet count, automated 256 10 150-450 Platelet C ount, Automated [place] ([facility]) nucleated red blood cell % 0.0 % 0-0 Nucleated Red Blood Cell % [place] ([facility]) ID Date Data Source [id number] 02/19/2020 04:20:00 AM EST [place] ([facility]) Name Value Range Interpretation Code Description Data Kaye rce(s) Supporting Document(s) glucose, fasting 139 mg/dL 70-100 Above high normal Glucose, Fas ting [place] ([facility]) blood urea nitrogen 21 mg/dL 7-18 Above high normal Blood Ure a Nitrogen [place] ([facility]) glomerular filtration rate > 60.0 >58 Glomerula r Filtration Rate [place] ([facility]) creatinine for GFR 1.14 mg/dL 0.55-1.30 Creatinine for GF R [place] ([facility]) sodium level 138 mEq/L 136-145 Sodium Level [place] ([facility]) potassium serum 3.6 mEq/L 3.5-5.1 Potassium Serum [facility] ([facility]) chloride level 109 mEq/L 98-107 Above high normal Chloride Level [place] ([facility]) anion gap 4 mEq/L 8-16 Below low normal Anion Gap [place] ( [facility]) carbon dioxide level 25 mEq/L 21-32 Carbon Dioxide Level [place] ([facility]) calcium level 8.4 mg/dL 8.5-10.1 Below low normal Calcium Level AT [facility]) ID Date Data Source [id number] 02/19/2020 04:20:00 AM EST [place] ([facility]) Name Value Range Interpretation Code Description Data Kaye rce(s) Supporting Document(s) white blood count 5.8 10 4.0-10.0 White Blood Count [place] ([facility]) red blood count 3.11 10 4.00-5.40 Below low normal Red Blood Coun t [place] ([facility]) hemoglobin 8.5 g/dL 12.0-15.5 Below low normal Hemoglobin [place] ( [facility]) hematocrit 26.6 % 36.0-47.0 Below low normal Hematocrit [place] ( [facility]) mean corpuscular volume 85.5 fL 80.0-96.0 Mean Corpusc ular Volume [place] ([facility]) mean corpuscular HGB conc 32.0 g/dL 32.0-36.5 Mean Corpu scular HGB Conc [place] ([facility]) mean corpuscular hemoglobin 27.3 pg 27.0-33.0 Mean Cor puscular Hemoglobin [place] ([facility]) red cell distribution width 14.7 % 11.5-14.5 Above high no rmal Red Cell Distribution Width [place] ([facility]) platelet count, automated 256 10 150-450 Platelet C ount, Automated [place] ([facility]) nucleated red blood cell % 0.0 % 0-0 Nucleated Red Blood Cell % [place] ([facility]) ID Date Data Source [id number] 02/19/2020 04:20:00 AM EST [place] ([facility]) Name Value Range Interpretation Code Description Data Kaye rce(s) Supporting Document(s) glucose, fasting 139 mg/dL 70-100 Above high normal Glucose, Fas ting [place] ([facility]) blood urea nitrogen 21 mg/dL 7-18 Above high normal Blood Ure a Nitrogen [place] ([facility]) glomerular filtration rate > 60.0 >58 Glomerula r Filtration Rate [place] ([facility]) creatinine for GFR 1.14 mg/dL 0.55-1.30 Creatinine for GF R [place] ([facility]) sodium level 138 mEq/L 136-145 Sodium Level [place] ([facility]) potassium serum 3.6 mEq/L 3.5-5.1 Potassium Serum [facility] ([facility]) chloride level 109 mEq/L 98-107 Above high normal Chloride Level [place] ([facility]) anion gap 4 mEq/L 8-16 Below low normal Anion Gap [place] ( [facility]) carbon dioxide level 25 mEq/L 21-32 Carbon Dioxide Level [place] ([facility]) calcium level 8.4 mg/dL 8.5-10.1 Below low normal Calcium Level AT [facility]) ID Date Data Source [id number] 02/19/2020 04:20:00 AM EST [place] ([facility]) Name Value Range Interpretation Code Description Data Kaye rce(s) Supporting Document(s) white blood count 5.8 10 4.0-10.0 White Blood Count [place] ([facility]) red blood count 3.11 10 4.00-5.40 Below low normal Red Blood Coun t [place] ([facility]) hemoglobin 8.5 g/dL 12.0-15.5 Below low normal Hemoglobin [place] ( [facility]) mean corpuscular volume 85.5 fL 80.0-96.0 Mean Corpusc ular Volume [place] ([facility]) hematocrit 26.6 % 36.0-47.0 Below low normal Hematocrit [place] ( [facility]) mean corpuscular hemoglobin 27.3 pg 27.0-33.0 Mean Cor puscular Hemoglobin [place] ([facility]) red cell distribution width 14.7 % 11.5-14.5 Above high no rmal Red Cell Distribution Width [place] ([facility]) mean corpuscular HGB conc 32.0 g/dL 32.0-36.5 Mean Corpu scular HGB Conc [place] ([facility]) platelet count, automated 256 10 150-450 Platelet C ount, Automated [place] ([facility]) nucleated red blood cell % 0.0 % 0-0 Nucleated Red Blood Cell % [place] ([facility]) ID Date Data Source [id number] 02/19/2020 04:20:00 AM [place] ([facility]) Name Value Range Interpretation Code Description Data Kaye rce(s) Supporting Document(s) blood urea nitrogen 21 mg/dL 7-18 Above high normal Blood Ure a Nitrogen [place] ([facility]) glucose, fasting 139 mg/dL 70-100 Above high normal Glucose, Fas ting [place] ([facility]) glomerular filtration rate > 60.0 >58 Glomerula r Filtration Rate [facility] [facility] [facility] creatinine for GFR 1.14 mg/dL 0.55-1.30 Creatinine for GF R ROMAN ([facility]) sodium level 138 mEq/L 136-145 Sodium Level ROMAN ([facility]) potassium serum 3.6 mEq/L 3.5-5.1 Potassium Serum ATH NA ([facility]) carbon dioxide level 25 mEq/L 21-32 Carbon Dioxide Level [place] ([facility]) chloride level 109 mEq/L 98-107 Above high normal Chloride Level [place] ([facility]) anion gap 4 mEq/L 8-16 Below low normal Anion Gap [place] ( [facility]) calcium level 8.4 mg/dL 8.5-10.1 Below low normal Calcium Level AT [facility] ([facility]) ID Date Data Source [id number] 02/19/2020 04:20:00 AM EST ROM[place] ([facility]) Name Value Range Interpretation Code Description Data Kaye rce(s) Supporting Document(s) white blood count 5.8 10 4.0-10.0 White Blood Count [place] ([facility]) red blood count 3.11 10 4.00-5.40 Below low normal Red Blood Coun t ROMAN ([facility]) hematocrit 26.6 % 36.0-47.0 Below low normal Hematocrit ROMAN ( [facility]) hemoglobin 8.5 g/dL 12.0-15.5 Below low normal Hemoglobin [place] ( [facility]) mean corpuscular volume 85.5 fL 80.0-96.0 Mean Corpusc ular Volume ROMAN ([facility]) mean corpuscular HGB conc 32.0 g/dL 32.0-36.5 Mean Corpu scular HGB Conc [place] ([facility]) mean corpuscular hemoglobin 27.3 pg 27.0-33.0 Mean Cor puscular Hemoglobin ROMAN ([facility]) red cell distribution width 14.7 % 11.5-14.5 Above high no rmal Red Cell Distribution Width ROMAN ([facility]) platelet count, automated 256 10 150-450 Platelet C ount, Automated ROM[place] ([facility]) nucleated red blood cell % 0.0 % 0-0 Nucleated Red Blood Cell % [place] ([facility]) ID Date Data Source [id number] 02/19/2020 04:20:00 AM EST [place] ([facility]) Name Value Range Interpretation Code Description Data Kaye rce(s) Supporting Document(s) blood urea nitrogen 21 mg/dL 7-18 Above high normal Blood Ure a Nitrogen ROM[place] ([facility]) glucose, fasting 139 mg/dL 70-100 Above high normal Glucose, Fas ting [place] ([facility]) creatinine for GFR 1.14 mg/dL 0.55-1.30 Creatinine for GF R [place] ([facility]) glomerular filtration rate > 60.0 >58 Glomerula r Filtration Rate ROMAN ([facility]) potassium serum 3.6 mEq/L 3.5-5.1 Potassium Serum [place] NA ([facility]) sodium level 138 mEq/L 136-145 Sodium Level ROMAN (No [facility]) chloride level 109 mEq/L 98-107 Above high normal Chloride Level ROMAN ([facility]) carbon dioxide level 25 mEq/L 21-32 Carbon Dioxide Level [place] ([facility]) calcium level 8.4 mg/dL 8.5-10.1 Below low normal Calcium Level AT [facility]) anion gap 4 mEq/L 8-16 Below low normal Anion Gap [place] ( [facility]) ID Date Data Source [id number] 02/19/2020 04:20:00 AM EST [place] ([facility]) Name Value Range Interpretation Code Description Data Kaye rce(s) Supporting Document(s) white blood count 5.8 10 4.0-10.0 White Blood Count [place] ([facility]) red blood count 3.11 10 4.00-5.40 Below low normal Red Blood Coun t [place] ([facility]) hematocrit 26.6 % 36.0-47.0 Below low normal Hematocrit [place] ( [facility]) hemoglobin 8.5 g/dL 12.0-15.5 Below low normal Hemoglobin [place] ( [facility]) mean corpuscular volume 85.5 fL 80.0-96.0 Mean Corpusc ular Volume [place] ([facility]) mean corpuscular hemoglobin 27.3 pg 27.0-33.0 Mean Cor puscular Hemoglobin [place] ([facility]) mean corpuscular HGB conc 32.0 g/dL 32.0-36.5 Mean Corpu scular HGB Conc [place] ([facility]) red cell distribution width 14.7 % 11.5-14.5 Above high no rmal Red Cell Distribution Width [place] ([facility]) platelet count, automated 256 10 150-450 Platelet C ount, Automated [place] ([facility]) nucleated red blood cell % 0.0 % 0-0 Nucleated Red Blood Cell % [place] ([facility]) ID Date Data Source [id number] 02/19/2020 04:20:00 AM EST [place] ([facility]) Name Value Range Interpretation Code Description Data Kaye rce(s) Supporting Document(s) glucose, fasting 139 mg/dL 70-100 Above high normal Glucose, Fas ting [place] ([facility]) blood urea nitrogen 21 mg/dL 7-18 Above high normal Blood Ure a Nitrogen [facility]) creatinine for GFR 1.14 mg/dL 0.55-1.30 Creatinine for GF R [place] ([facility]) sodium level 138 mEq/L 136-145 Sodium Level [place] (No [facility]) glomerular filtration rate > 60.0 >58 Glomerula r Filtration Rate ROM[place] ([facility]) potassium serum 3.6 mEq/L 3.5-5.1 Potassium Serum [place] NA ([facility]) chloride level 109 mEq/L 98-107 Above high normal Chloride Level ROM[place] ([facility]) anion gap 4 mEq/L 8-16 Below low normal Anion Gap [place] ( [facility]) carbon dioxide level 25 mEq/L 21-32 Carbon Dioxide Level [place] ([facility]) calcium level 8.4 mg/dL 8.5-10.1 Below low normal Calcium Level AT [facility]) ID Date Data Source [id number] 02/19/2020 04:20:00 AM EST [facility]) Name Value Range Interpretation Code Description Data Kaye rce(s) Supporting Document(s) white blood count 5.8 10 4.0-10.0 White Blood Count [place] ([facility]) red blood count 3.11 10 4.00-5.40 Below low normal Red Blood Coun t ROM[place] ([facility]) hemoglobin 8.5 g/dL 12.0-15.5 Below low normal Hemoglobin ROM[place] ( [facility]) hematocrit 26.6 % 36.0-47.0 Below low normal Hematocrit [place] ( [facility]) mean corpuscular volume 85.5 fL 80.0-96.0 Mean Corpusc ular Volume [place] ([facility]) mean corpuscular hemoglobin 27.3 pg 27.0-33.0 Mean Cor puscular Hemoglobin ROM[place] ([facility]) mean corpuscular HGB conc 32.0 g/dL 32.0-36.5 Mean Corpu scular HGB Conc [place] ([facility]) red cell distribution width 14.7 % 11.5-14.5 Above high no rmal Red Cell Distribution Width [place] ([facility]) platelet count, automated 256 10 150-450 Platelet C ount, Automated [place] ([facility]) nucleated red blood cell % 0.0 % 0-0 Nucleated Red Blood Cell % [place] ([facility]) ID Date Data Source [id number] 02/19/2020 04:20:00 AM EST [place] ([facility]) Name Value Range Interpretation Code Description Data Kaye rce(s) Supporting Document(s) glucose, fasting 139 mg/dL 70-100 Above high normal Glucose, Fas ting [place] ([facility]) creatinine for GFR 1.14 mg/dL 0.55-1.30 Creatinine for GF R [place] ([facility]) blood urea nitrogen 21 mg/dL 7-18 Above high normal Blood Ure a Nitrogen [place] ([facility]) glomerular filtration rate > 60.0 >58 Glomerula r Filtration Rate [place] ([facility]) sodium level 138 mEq/L 136-145 Sodium Level [place] (No [facility]) potassium serum 3.6 mEq/L 3.5-5.1 Potassium Serum ATHE NA ([facility]) carbon dioxide level 25 mEq/L 21-32 Carbon Dioxide Level [place] ([facility]) chloride level 109 mEq/L 98-107 Above high normal Chloride Level [place] ([facility]) anion gap 4 mEq/L 8-16 Below low normal Anion Gap [place] ( [facility]) calcium level 8.4 mg/dL 8.5-10.1 Below low normal Calcium Level AT [place] ([facility]) ID Date Data Source [id number] 02/19/2020 04:20:00 AM EST [place] ([facility]) Name Value Range Interpretation Code Description Data Kaye rce(s) Supporting Document(s) white blood count 5.8 10 4.0-10.0 White Blood Count [place] ([facility]) red blood count 3.11 10 4.00-5.40 Below low normal Red Blood Coun t [place] ([facility]) hemoglobin 8.5 g/dL 12.0-15.5 Below low normal Hemoglobin [place] ( [facility]) hematocrit 26.6 % 36.0-47.0 Below low normal Hematocrit [place] ( [facility]) mean corpuscular volume 85.5 fL 80.0-96.0 Mean Corpusc ular Volume ROMAN ([facility]) mean corpuscular hemoglobin 27.3 pg 27.0-33.0 Mean Cor puscular Hemoglobin [place] ([facility]) red cell distribution width 14.7 % 11.5-14.5 Above high no rmal Red Cell Distribution Width [place] ([facility]) mean corpuscular HGB conc 32.0 g/dL 32.0-36.5 Mean Corpu scular HGB Conc [place] ([facility]) platelet count, automated 256 10 150-450 Platelet C ount, Automated [place] ([facility]) nucleated red blood cell % 0.0 % 0-0 Nucleated Red Blood Cell % [place] ([facility]) ID Date Data Source [id number] 02/18/2020 08:43:00 PM EST [place] ([facility]) Name Value Range Interpretation Code Description Data Kaye rce(s) Supporting Document(s) bedside glucose 67 mg/dL 70-105 Below low normal Bedside Glucos e ROMAN ([facility]) ID Date Data Source [id number] 02/18/2020 08:43:00 PM EST [place] ([facility]) Name Value Range Interpretation Code Description Data Kaye rce(s) Supporting Document(s) bedside glucose 67 mg/dL 70-105 Below low normal Bedside Glucos e [place] ([facility]) ID Date Data Source [id number] 02/18/2020 08:43:00 PM EST [place] ([facility]) Name Value Range Interpretation Code Description Data Kaye rce(s) Supporting Document(s) bedside glucose 67 mg/dL 70-105 Below low normal Bedside Glucos e [place] ([facility]) ID Date Data Source [id number] 02/18/2020 08:43:00 PM EST [place] ([facility]) Name Value Range Interpretation Code Description Data Kaye rce(s) Supporting Document(s) bedside glucose 67 mg/dL 70-105 Below low normal Bedside Glucos e [place] ([facility]) ID Date Data Source [id number] 02/18/2020 08:43:00 PM EST [place] ([facility]) Name Value Range Interpretation Code Description Data Kaye rce(s) Supporting Document(s) bedside glucose 67 mg/dL 70-105 Below low normal Bedside Glucos e [place] ([facility]) ID Date Data Source [id number] 02/18/2020 08:43:00 PM EST [place] ([facility]) Name Value Range Interpretation Code Description Data Kaye rce(s) Supporting Document(s) bedside glucose 67 mg/dL 70-105 Below low normal Bedside Glucos e [place] ([facility]) ID Date Data Source [id number] 02/18/2020 08:43:00 PM EST [place] ([facility]) Name Value Range Interpretation Code Description Data Kaye rce(s) Supporting Document(s) bedside glucose 67 mg/dL 70-105 Below low normal Bedside Glucos e [place] ([facility]) ID Date Data Source [id number] 02/18/2020 08:09:00 PM EST [place] ([facility]) Name Value Range Interpretation Code Description Data Kaye rce(s) Supporting Document(s) bedside glucose 40 mg/dL 70-105 Below low normal Bedside Glucos e [place] ([facility]) ID Date Data Source [id number] 02/18/2020 08:09:00 PM EST [place] ([facility]) Name Value Range Interpretation Code Description Data Kaye rce(s) Supporting Document(s) bedside glucose 40 mg/dL 70-105 Below low normal Bedside Glucos e [place] ([facility]) ID Date Data Source [id number] 02/18/2020 08:09:00 PM EST [place] ([facility]) Name Value Range Interpretation Code Description Data Kaye rce(s) Supporting Document(s) bedside glucose 40 mg/dL 70-105 Below low normal Bedside Glucos e [place] ([facility]) ID Date Data Source [id number] 02/18/2020 08:09:00 PM EST [place] ([facility]) Name Value Range Interpretation Code Description Data Kaye rce(s) Supporting Document(s) bedside glucose 40 mg/dL 70-105 Below low normal Bedside Glucos e [place] ([facility]) ID Date Data Source [id number] 02/18/2020 08:09:00 PM EST [place] ([facility]) Name Value Range Interpretation Code Description Data Kaye rce(s) Supporting Document(s) bedside glucose 40 mg/dL 70-105 Below low normal Bedside Glucos e [place] ([facility]) ID Date Data Source [id number] 02/18/2020 08:09:00 PM EST [place] ([facility]) Name Value Range Interpretation Code Description Data Kaye rce(s) Supporting Document(s) bedside glucose 40 mg/dL 70-105 Below low normal Bedside Glucos e [place] ([facility]) ID Date Data Source [id number] 02/18/2020 08:09:00 PM EST [place] ([facility]) Name Value Range Interpretation Code Description Data Kaye rce(s) Supporting Document(s) bedside glucose 40 mg/dL 70-105 Below low normal Bedside Glucos e [place] ([facility]) ID Date Data Source [id number] 02/18/2020 05:03:00 PM EST [place] ([facility]) Name Value Range Interpretation Code Description Data Kaye rce(s) Supporting Document(s) bedside glucose 112 mg/dL 70-105 Above high normal Bedside Gluco se [place] ([facility]) ID Date Data Source [id number] 02/18/2020 05:03:00 PM EST [place] ([facility]) Name Value Range Interpretation Code Description Data Kaye rce(s) Supporting Document(s) bedside glucose 112 mg/dL 70-105 Above high normal Bedside Gluco se [place] ([facility]) ID Date Data Source [id number] 02/18/2020 05:03:00 PM EST [place] ([facility]) Name Value Range Interpretation Code Description Data Kaye rce(s) Supporting Document(s) bedside glucose 112 mg/dL 70-105 Above high normal Bedside Gluco se [place] ([facility]) ID Date Data Source [id number] 02/18/2020 05:03:00 PM EST [place] ([facility]) Name Value Range Interpretation Code Description Data Kaye rce(s) Supporting Document(s) bedside glucose 112 mg/dL 70-105 Above high normal Bedside Gluco se [place] ([facility]) ID Date Data Source [id number] 02/18/2020 05:03:00 PM EST [place] ([facility]) Name Value Range Interpretation Code Description Data Kaye rce(s) Supporting Document(s) bedside glucose 112 mg/dL 70-105 Above high normal Bedside Gluco se [place] ([facility]) ID Date Data Source [id number] 02/18/2020 05:03:00 PM EST [place] ([facility]) Name Value Range Interpretation Code Description Data Kaye rce(s) Supporting Document(s) bedside glucose 112 mg/dL 70-105 Above high normal Bedside Gluco se [place] ([facility]) ID Date Data Source [id number] 02/18/2020 05:03:00 PM EST [place] ([facility]) Name Value Range Interpretation Code Description Data Kaye rce(s) Supporting Document(s) bedside glucose 112 mg/dL 70-105 Above high normal Bedside Gluco se [place] ([facility]) ID Date Data Source [id number] 02/18/2020 11:43:00 AM EST [place] ([facility]) Name Value Range Interpretation Code Description Data Kaye rce(s) Supporting Document(s) bedside glucose 199 mg/dL 70-105 Above high normal Bedside Gluco se [place] ([facility]) ID Date Data Source [id number] 02/18/2020 11:43:00 AM EST [place] ([facility]) Name Value Range Interpretation Code Description Data Kaye rce(s) Supporting Document(s) bedside glucose 199 mg/dL 70-105 Above high normal Bedside Gluco se [place] ([facility]) ID Date Data Source [id number] 02/18/2020 11:43:00 AM EST [place] ([facility]) Name Value Range Interpretation Code Description Data Kaye rce(s) Supporting Document(s) bedside glucose 199 mg/dL 70-105 Above high normal Bedside Gluco se [place] ([facility]) ID Date Data Source [id number] 02/18/2020 11:43:00 AM EST [place] ([facility]) Name Value Range Interpretation Code Description Data Kaye rce(s) Supporting Document(s) bedside glucose 199 mg/dL 70-105 Above high normal Bedside Gluco se [place] ([facility]) ID Date Data Source [id number] 02/18/2020 11:43:00 AM EST [place] ([facility]) Name Value Range Interpretation Code Description Data Kaye rce(s) Supporting Document(s) bedside glucose 199 mg/dL 70-105 Above high normal Bedside Gluco se [place] ([facility]) ID Date Data Source [id number] 02/18/2020 11:43:00 AM EST [place] ([facility]) Name Value Range Interpretation Code Description Data Kaye rce(s) Supporting Document(s) bedside glucose 199 mg/dL 70-105 Above high normal Bedside Gluco se [place] ([facility]) ID Date Data Source [id number] 02/[facility] Name Value Range Interpretation Code Description Data Kaye rce(s) Supporting Document(s) bedside glucose 199 mg/dL 70-105 Above high normal Bedside Gluco se [place] ([facility]) ID Date Data Source [id number] 02/18/2020 10:22:00 AM EST [facility]) Name Value Range Interpretation Code Description Data Kaye rce(s) Supporting Document(s) bedside glucose 182 mg/dL 70-105 Above high normal [facility] ID Date Data Source [id number] 02/18/2020 10:22:00 AM EST [place] ([facility]) Name Value Range Interpretation Code Description Data Kaye rce(s) Supporting Document(s) bedside glucose 182 mg/dL 70-105 Above high normal [facility] Date Data Source [id number] 02/18/2020 10:22:00 AM [facility] Name Value Range Interpretation Code Description Data Kaye rce(s) Supporting Document(s) bedside glucose 182 mg/dL 70-105 Above high normal [facility] Date Data Source [id number] 02/18/2020 10:22:00 AM EST [place] ([facility]) Name Value Range Interpretation Code Description Data Kaye rce(s) Supporting Document(s) bedside glucose 182 mg/dL 70-105 Above high normal Bedside Gluco se [place] ([facility]) ID Date Data Source [id number] 02/18/2020 10:22:00 AM EST [place] ([facility]) Name Value Range Interpretation Code Description Data Kaye rce(s) Supporting Document(s) bedside glucose 182 mg/dL 70-105 Above high normal Bedside Gluco se [place] ([facility]) ID Date Data Source [id number] 02/18/2020 10:22:00 AM EST [place] ([facility]) Name Value Range Interpretation Code Description Data Kaye rce(s) Supporting Document(s) bedside glucose 182 mg/dL 70-105 Above high normal Bedside Gluco se [place] ([facility]) ID Date Data Source [id number] 02/18/2020 10:22:00 AM EST [place] ([facility]) Name Value Range Interpretation Code Description Data Kaye rce(s) Supporting Document(s) bedside glucose 182 mg/dL 70-105 Above high normal Bedside Gluco se [place] ([facility]) ID Date Data Source [id number] 02/18/2020 10:20:00 AM EST [place] ([facility]) Name Value Range Interpretation Code Description Data Kaye rce(s) Supporting Document(s) phosphorus level 1.4 mg/dL 2.5-4.9 Below low normal Phosphorus Le analia [place] ([facility]) ID Date Data Source [id number] 02/18/2020 10:20:00 AM EST [place] ([facility]) Name Value Range Interpretation Code Description Data Kaye rce(s) Supporting Document(s) glucose, fasting 199 mg/dL 70-100 Above high normal Glucose, Fas ting [place] ([facility]) blood urea nitrogen 32 mg/dL 7-18 Above high normal Blood Ure a Nitrogen [place] ([facility]) creatinine for GFR 1.38 mg/dL 0.55-1.30 Above high normal Creatinine for GFR [place] ([facility]) glomerular filtration rate >58 Below low normal Beata merular Filtration Rate [place] ([facility]) potassium serum 3.8 mEq/L 3.5-5.1 Potassium Serum ATH NA ([facility]) sodium level 139 mEq/L 136-145 Sodium Level [place] (No [facility]) carbon dioxide level 25 mEq/L 21-32 Carbon Dioxide Level [place] ([facility]) chloride level 109 mEq/L 98-107 Above high normal Chloride Level [place] ([facility]) anion gap 5 mEq/L 8-16 Below low normal Anion Gap [place] ( [facility]) calcium level 8.2 mg/dL 8.5-10.1 Below low normal Calcium Level AT [facility] ([facility]) ID Date Data Source [id number] 02/18/2020 10:20:00 AM EST [place] ([facility]) Name Value Range Interpretation Code Description Data Kaye rce(s) Supporting Document(s) phosphorus level 1.4 mg/dL 2.5-4.9 Below low normal Phosphorus Le analia [place] ([facility]) ID Date Data Source [id number] 02/18/2020 10:20:00 AM EST [place] ([facility]) Name Value Range Interpretation Code Description Data Kaye rce(s) Supporting Document(s) glucose, fasting 199 mg/dL 70-100 Above high normal Glucose, Fas ting [place] ([facility]) blood urea nitrogen 32 mg/dL 7-18 Above high normal Blood Ure a Nitrogen [place] ([facility]) glomerular filtration rate >58 Below low normal Beata merular Filtration Rate [place] ([facility]) creatinine for GFR 1.38 mg/dL 0.55-1.30 Above high normal Creatinine for GFR [place] ([facility]) potassium serum 3.8 mEq/L 3.5-5.1 Potassium Serum [place] ([facility]) sodium level 139 mEq/L 136-145 Sodium Level [place] ([facility]) chloride level 109 mEq/L 98-107 Above high normal Chloride Level [place] ([facility]) carbon dioxide level 25 mEq/L 21-32 Carbon Dioxide Level [place] ([facility]) anion gap 5 mEq/L 8-16 Below low normal Anion Gap [place] ( [facility]) calcium level 8.2 mg/dL 8.5-10.1 Below low normal Calcium Level AT [facility] ([facility]) ID Date Data Source [id number] 02/18/2020 10:20:00 AM EST [place] ([facility]) Name Value Range Interpretation Code Description Data Kaye rce(s) Supporting Document(s) phosphorus level 1.4 mg/dL 2.5-4.9 Below low normal Phosphorus Le analia [place] ([facility]) ID Date Data Source [id number] 02/18/2020 10:20:00 AM EST [place] ([facility]) Name Value Range Interpretation Code Description Data Kaye rce(s) Supporting Document(s) blood urea nitrogen 32 mg/dL 7-18 Above high normal Blood Ure a Nitrogen [place] ([facility]) glucose, fasting 199 mg/dL 70-100 Above high normal Glucose, Fas ting [place] ([facility]) creatinine for GFR 1.38 mg/dL 0.55-1.30 Above high normal Creatinine for GFR [place] ([facility]) glomerular filtration rate >58 Below low normal Beata merular Filtration Rate [place] ([facility]) sodium level 139 mEq/L 136-145 Sodium Level [place] ([facility]) chloride level 109 mEq/L 98-107 Above high normal Chloride Level [place] ([facility]) potassium serum 3.8 mEq/L 3.5-5.1 Potassium Serum [place] ([facility]) anion gap 5 mEq/L 8-16 Below low normal Anion Gap [place] ( [facility]) carbon dioxide level 25 mEq/L 21-32 Carbon Dioxide Level [place] ([facility]) calcium level 8.2 mg/dL 8.5-10.1 Below low normal Calcium Level AT [facility] ([facility]) ID Date Data Source [id number] 02/18/2020 10:20:00 AM EST [place] ([facility]) Name Value Range Interpretation Code Description Data Kaye rce(s) Supporting Document(s) phosphorus level 1.4 mg/dL 2.5-4.9 Below low normal Phosphorus Le analia [place] ([facility]) ID Date Data Source [id number] 02/18/2020 10:20:00 AM EST [place] ([facility]) Name Value Range Interpretation Code Description Data Kaye rce(s) Supporting Document(s) phosphorus level 1.4 mg/dL 2.5-4.9 Below low normal Phosphorus Le analia [place] ([facility]) ID Date Data Source [id number] 02/18/2020 10:20:00 AM EST [place] ([facility]) Name Value Range Interpretation Code Description Data Kaye rce(s) Supporting Document(s) glucose, fasting 199 mg/dL 70-100 Above high normal Glucose, Fas ting [place] ([facility]) blood urea nitrogen 32 mg/dL 7-18 Above high normal Blood Ure a Nitrogen [place] ([facility]) creatinine for GFR 1.38 mg/dL 0.55-1.30 Above high normal Creatinine for GFR [place] ([facility]) glomerular filtration rate >58 Below low normal Beata merular Filtration Rate [place] ([facility]) potassium serum 3.8 mEq/L 3.5-5.1 Potassium Serum [place] ([facility]) sodium level 139 mEq/L 136-145 Sodium Level [place] ([facility]) carbon dioxide level 25 mEq/L 21-32 Carbon Dioxide Level [place] ([facility]) chloride level 109 mEq/L 98-107 Above high normal Chloride Level [place] ([facility]) anion gap 5 mEq/L 8-16 Below low normal Anion Gap [place] ( [facility]) calcium level 8.2 mg/dL 8.5-10.1 Below low normal Calcium Level AT [facility] ([facility]) ID Date Data Source [id number] 02/18/2020 10:20:00 AM EST [place] ([facility]) Name Value Range Interpretation Code Description Data Kaye rce(s) Supporting Document(s) phosphorus level 1.4 mg/dL 2.5-4.9 Below low normal Phosphorus Le analia [place] ([facility]) ID Date Data Source [id number] 02/18/2020 10:20:00 AM EST [place] ([facility]) Name Value Range Interpretation Code Description Data Kaye rce(s) Supporting Document(s) glucose, fasting 199 mg/dL 70-100 Above high normal Glucose, Fas ting [place] ([facility]) creatinine for GFR 1.38 mg/dL 0.55-1.30 Above high normal Creatinine for GFR [place] ([facility]) blood urea nitrogen 32 mg/dL 7-18 Above high normal Blood Ure a Nitrogen [place] ([facility]) sodium level 139 mEq/L 136-145 Sodium Level [place] ([facility]) glomerular filtration rate >58 Below low normal Beata merular Filtration Rate [place] ([facility]) chloride level 109 mEq/L 98-107 Above high normal Chloride Level [place] ([facility]) potassium serum 3.8 mEq/L 3.5-5.1 Potassium Serum [place] ([facility]) calcium level 8.2 mg/dL 8.5-10.1 Below low normal Calcium Level AT [facility] ([facility]) carbon dioxide level 25 mEq/L 21-32 Carbon Dioxide Level [place] ([facility]) anion gap 5 mEq/L 8-16 Below low normal Anion Gap [place] ( [facility]) ID Date Data Source [id number] 02/18/2020 10:20:00 AM EST [place] ([facility]) Name Value Range Interpretation Code Description Data Kaye rce(s) Supporting Document(s) glucose, fasting 199 mg/dL 70-100 Above high normal Glucose, Fas ting [place] ([facility]) creatinine for GFR 1.38 mg/dL 0.55-1.30 Above high normal Creatinine for GFR [place] ([facility]) blood urea nitrogen 32 mg/dL 7-18 Above high normal Blood Ure a Nitrogen [place] ([facility]) sodium level 139 mEq/L 136-145 Sodium Level [place] (No [facility]) glomerular filtration rate >58 Below low normal Beata merular Filtration Rate [place] ([facility]) potassium serum 3.8 mEq/L 3.5-5.1 Potassium Serum [place] ([facility]) chloride level 109 mEq/L 98-107 Above high normal Chloride Level [place] ([facility]) carbon dioxide level 25 mEq/L 21-32 Carbon Dioxide Level [place] ([facility]) anion gap 5 mEq/L 8-16 Below low normal Anion Gap [place] ( [facility]) calcium level 8.2 mg/dL 8.5-10.1 Below low normal Calcium Level AT [facility] ([facility]) ID Date Data Source [id number] 02/18/2020 10:20:00 AM EST [place] ([facility]) Name Value Range Interpretation Code Description Data Kaye rce(s) Supporting Document(s) phosphorus level 1.4 mg/dL 2.5-4.9 Below low normal Phosphorus Le analia [place] ([facility]) ID Date Data Source [id number] 02/18/2020 10:20:00 AM EST [place] ([facility]) Name Value Range Interpretation Code Description Data Kaye rce(s) Supporting Document(s) blood urea nitrogen 32 mg/dL 7-18 Above high normal Blood Ure a Nitrogen [place] ([facility]) glucose, fasting 199 mg/dL 70-100 Above high normal Glucose, Fas ting [place] ([facility]) creatinine for GFR 1.38 mg/dL 0.55-1.30 Above high normal Creatinine for GFR [place] ([facility]) glomerular filtration rate >58 Below low normal Beata merular Filtration Rate [place] ([facility]) sodium level 139 mEq/L 136-145 Sodium Level [place] ([facility]) potassium serum 3.8 mEq/L 3.5-5.1 Potassium Serum [place] ([facility]) carbon dioxide level 25 mEq/L 21-32 Carbon Dioxide Level [place] ([facility]) chloride level 109 mEq/L 98-107 Above high normal Chloride Level [place] ([facility]) anion gap 5 mEq/L 8-16 Below low normal Anion Gap [place] ( [facility]) calcium level 8.2 mg/dL 8.5-10.1 Below low normal Calcium Level AT [facility] ([facility]) ID Date Data Source [id number] 02/18/2020 09:01:00 AM EST [facility]) Name Value Range Interpretation Code Description Data Kaye rce(s) Supporting Document(s) bedside glucose 112 mg/dL 70-105 Above high normal Bedside Gluco se [facility]) ID Date Data Source [id number] 02/18/2020 09:01:00 AM EST [facility]) Name Value Range Interpretation Code Description Data Akye rce(s) Supporting Document(s) bedside glucose 112 mg/dL 70-105 Above high normal Bedside Gluco se [facility]) ID Date Data Source [id number] 02/18/2020 09:01:00 AM EST [facility]) Name Value Range Interpretation Code Description Data Kaye rce(s) Supporting Document(s) bedside glucose 112 mg/dL 70-105 Above high normal Bedside Gluco se [place] ([facility]) ID Date Data Source [id number] 02/18/2020 09:01:00 AM EST [place] ([facility]) Name Value Range Interpretation Code Description Data Kaye rce(s) Supporting Document(s) bedside glucose 112 mg/dL 70-105 Above high normal Bedside Gluco se [place] ([facility]) ID Date Data Source [id number] 02/18/2020 09:01:00 AM EST [place] ([facility]) Name Value Range Interpretation Code Description Data Kaye rce(s) Supporting Document(s) bedside glucose 112 mg/dL 70-105 Above high normal [facility] Date Data Source [id number] 02/18/2020 09:01:00 AM EST [place] ([facility]) Name Value Range Interpretation Code Description Data Kaye rce(s) Supporting Document(s) bedside glucose 112 mg/dL 70-105 Above high normal [facility] ID Date Data Source [id number] 02/18/2020 09:01:00 AM EST [place] ([facility]) Name Value Range Interpretation Code Description Data Kaye rce(s) Supporting Document(s) bedside glucose 112 mg/dL 70-105 Above high normal [facility] ID Date Data Source [id number] 02/18/2020 08:03:00 AM EST [place] [facility]) Name Value Range Interpretation Code Description Data Kaye rce(s) Supporting Document(s) bedside glucose 123 mg/dL 70-105 Above high normal [facility] ID Date Data Source [id number] 02/18/2020 08:03:00 AM EST [place] ([facility]) Name Value Range Interpretation Code Description Data Kaye rce(s) Supporting Document(s) bedside glucose 123 mg/dL 70-105 Above high normal Bedside Gluco se [place] ([facility]) ID Date Data Source [id number] 02/18/2020 08:03:00 AM EST [place] ([facility]) Name Value Range Interpretation Code Description Data Kaye rce(s) Supporting Document(s) bedside glucose 123 mg/dL 70-105 Above high normal Bedside Gluco se [place] ([facility]) ID Date Data Source [id number] 02/18/2020 08:03:00 AM EST [place] ([facility]) Name Value Range Interpretation Code Description Data Kaye rce(s) Supporting Document(s) bedside glucose 123 mg/dL 70-105 Above high normal Bedside Gluco se [place] ([facility]) ID Date Data Source [id number] 02/18/2020 08:03:00 AM EST [place] ([facility]) Name Value Range Interpretation Code Description Data Kaye rce(s) Supporting Document(s) bedside glucose 123 mg/dL 70-105 Above high normal Bedside Gluco se [place] ([facility]) ID Date Data Source [id number] 02/18/2020 08:03:00 AM EST [place] ([facility]) Name Value Range Interpretation Code Description Data Kaye rce(s) Supporting Document(s) bedside glucose 123 mg/dL 70-105 Above high normal Bedside Gluco se [place] ([facility]) ID Date Data Source [id number] 02/18/2020 08:03:00 AM EST [place] ([facility]) Name Value Range Interpretation Code Description Data Kaye rce(s) Supporting Document(s) bedside glucose 123 mg/dL 70-105 Above high normal Bedside Gluco se [place] ([facility]) ID Date Data Source [id number] 02/18/2020 07:03:00 AM EST [place] ([facility]) Name Value Range Interpretation Code Description Data Kaye rce(s) Supporting Document(s) bedside glucose 156 mg/dL 70-105 Above high normal Bedside Gluco se [place] ([facility]) ID Date Data Source [id number] 02/18/2020 07:03:00 AM EST [place] ([facility]) Name Value Range Interpretation Code Description Data Kaye rce(s) Supporting Document(s) bedside glucose 156 mg/dL 70-105 Above high normal Bedside Gluco se [place] ([facility]) ID Date Data Source [id number] 02/18/2020 07:03:00 AM EST [place] ([facility]) Name Value Range Interpretation Code Description Data Kaye rce(s) Supporting Document(s) bedside glucose 156 mg/dL 70-105 Above high normal Bedside Gluco se [place] ([facility]) ID Date Data Source [id number] 02/18/2020 07:03:00 [facility] Name Value Range Interpretation Code Description Data Kaye rce(s) Supporting Document(s) bedside glucose 156 mg/dL 70-105 Above high normal Bedside Gluco se [place] ([facility]) ID Date Data Source [id number] 02/18/2020 07:03:00 AM EST [place] ([facility]) Name Value Range Interpretation Code Description Data Kaye rce(s) Supporting Document(s) bedside glucose 156 mg/dL 70-105 Above high normal [facility] ID Date Data Source [id number] 02/18/2020 07:03:00 AM EST [place] ([facility]) Name Value Range Interpretation Code Description Data Kaye rce(s) Supporting Document(s) bedside glucose 156 mg/dL 70-105 Above high normal Bedside Gluco se [place] ([facility]) ID Date Data Source [id number] 02/18/2020 07:03:00 AM EST [place] ([facility]) Name Value Range Interpretation Code Description Data Kaye rce(s) Supporting Document(s) bedside glucose 156 mg/dL 70-105 Above high normal Bedside Gluco se [place] ([facility]) ID Date Data Source [id number] 02/18/2020 06:32:00 AM EST [place] ([facility]) Name Value Range Interpretation Code Description Data Kaye rce(s) Supporting Document(s) phosphorus level 2.0 mg/dL 2.5-4.9 Below low normal Phosphorus Le analia [place] ([facility]) ID Date Data Source [id number] 02/18/2020 06:32:00 AM EST [place] ([facility]) Name Value Range Interpretation Code Description Data Kaye rce(s) Supporting Document(s) glucose, fasting 137 mg/dL 70-100 Above high normal Glucose, Fas ting [place] ([facility]) blood urea nitrogen 36 mg/dL 7-18 Above high normal Blood Ure a Nitrogen [place] ([facility]) creatinine for GFR 1.35 mg/dL 0.55-1.30 Above high normal Creatinine for GFR [place] ([facility]) sodium level 140 mEq/L 136-145 Sodium Level [place] ([facility]) glomerular filtration rate >58 Below low normal Beata merular Filtration Rate [place] ([facility]) chloride level 109 mEq/L 98-107 Above high normal Chloride Level [place] ([facility]) potassium serum 4.2 mEq/L 3.5-5.1 Potassium Serum [place] ([facility]) anion gap 8 mEq/L 8-16 Anion Gap [place] ([facility]) carbon dioxide level 23 mEq/L 21-32 Carbon Dioxide Level [place] ([facility]) calcium level 8.4 mg/dL 8.5-10.1 Below low normal Calcium Level AT [facility]) ID Date Data Source [id number] 02/18/2020 06:32:00 AM EST [facility]) Name Value Range Interpretation Code Description Data Kaye rce(s) Supporting Document(s) hemoglobin 9.6 g/dL 12.0-15.5 Below low normal Hemoglobin [place] ( [facility]) red blood count 3.39 10 4.00-5.40 Below low normal Red Blood Coun t [place] ([facility]) white blood count 6.9 10 4.0-10.0 White Blood Count [place] ([facility]) mean corpuscular volume 84.7 fL 80.0-96.0 Mean Corpusc ular Volume [place] ([facility]) hematocrit 28.7 % 36.0-47.0 Below low normal Hematocrit [place] ( [facility]) mean corpuscular hemoglobin 28.3 pg 27.0-33.0 Mean Cor puscular Hemoglobin [place] ([facility]) mean corpuscular HGB conc 33.4 g/dL 32.0-36.5 Mean Corpu scular HGB Conc [place] ([facility]) red cell distribution width 14.8 % 11.5-14.5 Above high no rmal Red Cell Distribution Width [place] ([facility]) platelet count, automated 300 10 150-450 Platelet C ount, Automated [place] ([facility]) nucleated red blood cell % 0.0 % 0-0 Nucleated Red Blood Cell % [place] ([facility]) ID Date Data Source [id number] 02/18/2020 06:32:00 AM EST [facility]) Name Value Range Interpretation Code Description Data Kaye rce(s) Supporting Document(s) phosphorus level 2.0 mg/dL 2.5-4.9 Below low normal Phosphorus Le analia [place] ([facility]) ID Date Data Source [id number] 02/18/2020 06:32:00 AM EST [place] ([facility]) Name Value Range Interpretation Code Description Data Kaye rce(s) Supporting Document(s) glucose, fasting 137 mg/dL 70-100 Above high normal Glucose, Fas ting [place] ([facility]) blood urea nitrogen 36 mg/dL 7-18 Above high normal Blood Ure a Nitrogen [place] ([facility]) creatinine for GFR 1.35 mg/dL 0.55-1.30 Above high normal Creatinine for GFR [place] ([facility]) glomerular filtration rate >58 Below low normal Beata merular Filtration Rate [place] ([facility]) potassium serum 4.2 mEq/L 3.5-5.1 Potassium Serum [place] ([facility]) chloride level 109 mEq/L 98-107 Above high normal Chloride Level [place] ([facility]) sodium level 140 mEq/L 136-145 Sodium Level [place] ([facility]) carbon dioxide level 23 mEq/L 21-32 Carbon Dioxide Level [place] ([facility]) anion gap 8 mEq/L 8-16 Anion Gap [place] ([facility]) calcium level 8.4 mg/dL 8.5-10.1 Below low normal Calcium Level AT [facility]) ID Date Data Source [id number] 02/18/2020 06:32:00 AM EST [place] ([facility]) Name Value Range Interpretation Code Description Data Kaye rce(s) Supporting Document(s) white blood count 6.9 10 4.0-10.0 White Blood Count [place] ([facility]) red blood count 3.39 10 4.00-5.40 Below low normal Red Blood Coun t [place] ([facility]) hemoglobin 9.6 g/dL 12.0-15.5 Below low normal Hemoglobin [place] ( [facility]) mean corpuscular volume 84.7 fL 80.0-96.0 Mean Corpusc ular Volume [place] ([facility]) hematocrit 28.7 % 36.0-47.0 Below low normal Hematocrit [place] ( [facility]) mean corpuscular hemoglobin 28.3 pg 27.0-33.0 Mean Cor puscular Hemoglobin [place] ([facility]) mean corpuscular HGB conc 33.4 g/dL 32.0-36.5 Mean Corpu scular HGB Conc [place] ([facility]) red cell distribution width 14.8 % 11.5-14.5 Above high no rmal Red Cell Distribution Width [place] ([facility]) platelet count, automated 300 10 150-450 Platelet C ount, Automated [place] ([facility]) nucleated red blood cell % 0.0 % 0-0 Nucleated Red Blood Cell % [place] ([facility]) ID Date Data Source [id number] 02/18/2020 06:32:00 AM EST [place] ([facility]) Name Value Range Interpretation Code Description Data Kaye rce(s) Supporting Document(s) phosphorus level 2.0 mg/dL 2.5-4.9 Below low normal Phosphorus Le analia [place] ([facility]) ID Date Data Source [id number] 02/18/2020 06:32:00 AM EST [place] ([facility]) Name Value Range Interpretation Code Description Data Kaye rce(s) Supporting Document(s) glucose, fasting 137 mg/dL 70-100 Above high normal Glucose, Fas ting [place] ([facility]) creatinine for GFR 1.35 mg/dL 0.55-1.30 Above high normal Creatinine for GFR [place] ([facility]) blood urea nitrogen 36 mg/dL 7-18 Above high normal Blood Ure a Nitrogen [place] ([facility]) glomerular filtration rate >58 Below low normal Beata merular Filtration Rate [place] ([facility]) sodium level 140 mEq/L 136-145 Sodium Level [place] ([facility]) potassium serum 4.2 mEq/L 3.5-5.1 Potassium Serum ATHE NA ([facility]) chloride level 109 mEq/L 98-107 Above high normal Chloride Level ROMAN ([facility]) carbon dioxide level 23 mEq/L 21-32 Carbon Dioxide Level ROMAN ([facility]) anion gap 8 mEq/L 8-16 Anion Gap ROMAN ([facility]) calcium level 8.4 mg/dL 8.5-10.1 Below low normal Calcium Level AT TRAM ([facility]) ID Date Data Source [id number] 02/18/2020 06:32:00 AM EST ROMAN ([facility]) Name Value Range Interpretation Code Description Data Kaye rce(s) Supporting Document(s) white blood count 6.9 10 4.0-10.0 White Blood Count ROMAN ([facility]) red blood count 3.39 10 4.00-5.40 Below low normal Red Blood Coun t ROMAN ([facility]) hemoglobin 9.6 g/dL 12.0-15.5 Below low normal Hemoglobin ROMAN ( [facility]) hematocrit 28.7 % 36.0-47.0 Below low normal Hematocrit ROMAN ( [facility]) mean corpuscular volume 84.7 fL 80.0-96.0 Mean Corpusc ular Volume ROMAN ([facility]) mean corpuscular HGB conc 33.4 g/dL 32.0-36.5 Mean Corpu scular HGB Conc ROMAN ([facility]) mean corpuscular hemoglobin 28.3 pg 27.0-33.0 Mean Cor puscular Hemoglobin ROMAN ([facility]) platelet count, automated 300 10 150-450 Platelet C ount, Automated ROMAN ([facility]) red cell distribution width 14.8 % 11.5-14.5 Above high no rmal Red Cell Distribution Width ROMAN ([facility]) nucleated red blood cell % 0.0 % 0-0 Nucleated Red Blood Cell % ROMAN ([facility]) ID Date Data Source [id number] 02/18/2020 06:32:00 AM EST ROMAN ([facility]) Name Value Range Interpretation Code Description Data Kaye rce(s) Supporting Document(s) phosphorus level 2.0 mg/dL 2.5-4.9 Below low normal Phosphorus Le analia ROMAN ([facility]) ID Date Data Source [id number] 02/18/2020 06:32:00 AM EST ROMAN ([facility]) Name Value Range Interpretation Code Description Data Kaye rce(s) Supporting Document(s) glucose, fasting 137 mg/dL 70-100 Above high normal Glucose, Fas ting ROMAN ([facility]) blood urea nitrogen 36 mg/dL 7-18 Above high normal Blood Ure a Nitrogen ROMAN ([facility]) creatinine for GFR 1.35 mg/dL 0.55-1.30 Above high normal Creatinine for GFR [place] ([facility]) glomerular filtration rate >58 Below low normal Beata merular Filtration Rate ROMAN ([facility]) potassium serum 4.2 mEq/L 3.5-5.1 Potassium Serum ATHE NA ([facility]) sodium level 140 mEq/L 136-145 Sodium Level ROMAN (No [facility]) chloride level 109 mEq/L 98-107 Above high normal Chloride Level ROMAN ([facility]) carbon dioxide level 23 mEq/L 21-32 Carbon Dioxide Level [place] ([facility]) anion gap 8 mEq/L 8-16 Anion Gap ROMAN ([facility]) calcium level 8.4 mg/dL 8.5-10.1 Below low normal Calcium Level AT TRAM ([facility]) ID Date Data Source [id number] 02/18/2020 06:32:00 AM EST ROMAN ([facility]) Name Value Range Interpretation Code Description Data Kaye rce(s) Supporting Document(s) white blood count 6.9 10 4.0-10.0 White Blood Count ROMAN ([facility]) red blood count 3.39 10 4.00-5.40 Below low normal Red Blood Coun t [place] ([facility]) hemoglobin 9.6 g/dL 12.0-15.5 Below low normal Hemoglobin ROMAN ( [facility]) hematocrit 28.7 % 36.0-47.0 Below low normal Hematocrit ROMAN ( [facility]) mean corpuscular volume 84.7 fL 80.0-96.0 Mean Corpusc ular Volume ROMAN ([facility]) mean corpuscular hemoglobin 28.3 pg 27.0-33.0 Mean Cor puscular Hemoglobin ROMAN ([facility]) red cell distribution width 14.8 % 11.5-14.5 Above high no rmal Red Cell Distribution Width ROMAN ([facility]) mean corpuscular HGB conc 33.4 g/dL 32.0-36.5 Mean Corpu scular HGB Conc [place] ([facility]) nucleated red blood cell % 0.0 % 0-0 Nucleated Red Blood Cell % [place] ([facility]) platelet count, automated 300 10 150-450 Platelet C ount, Automated [place] ([facility]) ID Date Data Source [id number] 02/18/2020 06:32:00 AM EST [place] ([facility]) Name Value Range Interpretation Code Description Data Kaye rce(s) Supporting Document(s) phosphorus level 2.0 mg/dL 2.5-4.9 Below low normal Phosphorus Le analia [place] ([facility]) ID Date Data Source [id number] 02/18/2020 06:32:00 AM EST [place] ([facility]) Name Value Range Interpretation Code Description Data Kaye rce(s) Supporting Document(s) glucose, fasting 137 mg/dL 70-100 Above high normal Glucose, Fas ting ROMAN ([facility]) blood urea nitrogen 36 mg/dL 7-18 Above high normal Blood Ure a Nitrogen [place] ([facility]) creatinine for GFR 1.35 mg/dL 0.55-1.30 Above high normal Creatinine for GFR [place] ([facility]) glomerular filtration rate >58 Below low normal Beata merular Filtration Rate ROMAN ([facility]) sodium level 140 mEq/L 136-145 Sodium Level ROMAN ([facility]) potassium serum 4.2 mEq/L 3.5-5.1 Potassium Serum ATHE NA ([facility]) carbon dioxide level 23 mEq/L 21-32 Carbon Dioxide Level ROMAN ([facility]) chloride level 109 mEq/L 98-107 Above high normal Chloride Level ROMAN ([facility]) anion gap 8 mEq/L 8-16 Anion Gap ROMAN ([facility]) calcium level 8.4 mg/dL 8.5-10.1 Below low normal Calcium Level AT [facility]) ID Date Data Source [id number] 02/18/2020 06:32:00 AM EST [facility]) Name Value Range Interpretation Code Description Data Kaye rce(s) Supporting Document(s) white blood count 6.9 10 4.0-10.0 White Blood Count ROMAN ([facility]) red blood count 3.39 10 4.00-5.40 Below low normal Red Blood Coun t [place] ([facility]) hemoglobin 9.6 g/dL 12.0-15.5 Below low normal Hemoglobin ROMAN ( [facility]) hematocrit 28.7 % 36.0-47.0 Below low normal Hematocrit ROMAN ( [facility]) mean corpuscular hemoglobin 28.3 pg 27.0-33.0 Mean Cor puscular Hemoglobin ROMAN ([facility]) mean corpuscular volume 84.7 fL 80.0-96.0 Mean Corpusc ular Volume ROMAN ([facility]) red cell distribution width 14.8 % 11.5-14.5 Above high no rmal Red Cell Distribution Width ROMAN ([facility]) mean corpuscular HGB conc 33.4 g/dL 32.0-36.5 Mean Corpu scular HGB Conc ROMAN ([facility]) platelet count, automated 300 10 150-450 Platelet C ount, Automated [place] ([facility]) nucleated red blood cell % 0.0 % 0-0 Nucleated Red Blood Cell % ROMAN ([facility]) ID Date Data Source [id number] 02/18/2020 06:32:00 AM EST ROMAN ([facility]) Name Value Range Interpretation Code Description Data Kaye rce(s) Supporting Document(s) phosphorus level 2.0 mg/dL 2.5-4.9 Below low normal Phosphorus Le analia [place] ([facility]) ID Date Data Source [id number] 02/18/2020 06:32:00 AM EST ROMAN ([facility]) Name Value Range Interpretation Code Description Data Kaye rce(s) Supporting Document(s) blood urea nitrogen 36 mg/dL 7-18 Above high normal Blood Ure a Nitrogen ROMAN ([facility]) glucose, fasting 137 mg/dL 70-100 Above high normal Glucose, Fas ting ROMAN ([facility]) creatinine for GFR 1.35 mg/dL 0.55-1.30 Above high normal Creatinine for GFR [place] ([facility]) glomerular filtration rate >58 Below low normal Beata merular Filtration Rate ROMAN ([facility]) potassium serum 4.2 mEq/L 3.5-5.1 Potassium Serum ATHE NA ([facility]) sodium level 140 mEq/L 136-145 Sodium Level ROMAN ([facility]) carbon dioxide level 23 mEq/L 21-32 Carbon Dioxide Level ROMAN ([facility]) chloride level 109 mEq/L 98-107 Above high normal Chloride Level ROMAN ([facility]) anion gap 8 mEq/L 8-16 Anion Gap ROMAN ([facility]) calcium level 8.4 mg/dL 8.5-10.1 Below low normal Calcium Level AT TRAM ([facility]) ID Date Data Source [id number] 02/18/2020 06:32:00 AM EST ROMAN ([facility]) Name Value Range Interpretation Code Description Data Kaye rce(s) Supporting Document(s) white blood count 6.9 10 4.0-10.0 White Blood Count ROMAN ([facility]) red blood count 3.39 10 4.00-5.40 Below low normal Red Blood Coun t ROM[place] ([facility]) hemoglobin 9.6 g/dL 12.0-15.5 Below low normal Hemoglobin ROMAN ( [facility]) hematocrit 28.7 % 36.0-47.0 Below low normal Hematocrit [place] ( [facility]) mean corpuscular volume 84.7 fL 80.0-96.0 Mean Corpusc ular Volume [place] ([facility]) mean corpuscular HGB conc 33.4 g/dL 32.0-36.5 Mean Corpu scular HGB Conc [place] ([facility]) mean corpuscular hemoglobin 28.3 pg 27.0-33.0 Mean Cor puscular Hemoglobin [place] ([facility]) red cell distribution width 14.8 % 11.5-14.5 Above high no rmal Red Cell Distribution Width [place] ([facility]) platelet count, automated 300 10 150-450 Platelet C ount, Automated [place] ([facility]) nucleated red blood cell % 0.0 % 0-0 Nucleated Red Blood Cell % [place] ([facility]) ID Date Data Source [id number] 02/18/2020 06:32:00 AM EST [place] ([facility]) Name Value Range Interpretation Code Description Data Kaye rce(s) Supporting Document(s) phosphorus level 2.0 mg/dL 2.5-4.9 Below low normal Phosphorus Le analia [place] ([facility]) ID Date Data Source [id number] 02/18/2020 06:32:00 AM EST [place] ([facility]) Name Value Range Interpretation Code Description Data Kaye rce(s) Supporting Document(s) glucose, fasting 137 mg/dL 70-100 Above high normal Glucose, Fas ting ROMAN ([facility]) blood urea nitrogen 36 mg/dL 7-18 Above high normal Blood Ure a Nitrogen [place] ([facility]) creatinine for GFR 1.35 mg/dL 0.55-1.30 Above high normal Creatinine for GFR [place] ([facility]) sodium level 140 mEq/L 136-145 Sodium Level ROMAN ([facility]) glomerular filtration rate >58 Below low normal Beata merular Filtration Rate ROM[place] ([facility]) potassium serum 4.2 mEq/L 3.5-5.1 Potassium Serum ATHE NA ([facility]) chloride level 109 mEq/L 98-107 Above high normal Chloride Level ROMAN ([facility]) anion gap 8 mEq/L 8-16 Anion Gap ROMAN ([facility]) carbon dioxide level 23 mEq/L 21-32 Carbon Dioxide Level [place] ([facility]) calcium level 8.4 mg/dL 8.5-10.1 Below low normal Calcium Level AT [facility]) ID Date Data Source [id number] 02/18/2020 06:32:00 AM EST [facility]) Name Value Range Interpretation Code Description Data Kaye rce(s) Supporting Document(s) red blood count 3.39 10 4.00-5.40 Below low normal Red Blood Coun t [place] ([facility]) white blood count 6.9 10 4.0-10.0 White Blood Count [facility]) hemoglobin 9.6 g/dL 12.0-15.5 Below low normal Hemoglobin [place] ( [facility]) hematocrit 28.7 % 36.0-47.0 Below low normal Hematocrit [place] ( [facility]) mean corpuscular hemoglobin 28.3 pg 27.0-33.0 Mean Cor puscular Hemoglobin [place] ([facility]) mean corpuscular volume 84.7 fL 80.0-96.0 Mean Corpusc ular Volume [place] ([facility]) red cell distribution width 14.8 % 11.5-14.5 Above high no rmal Red Cell Distribution Width ROMAN ([facility]) mean corpuscular HGB conc 33.4 g/dL 32.0-36.5 Mean Corpu scular HGB Conc ROM[place] ([facility]) platelet count, automated 300 10 150-450 Platelet C ount, Automated [place] ([facility]) nucleated red blood cell % 0.0 % 0-0 Nucleated Red Blood Cell % [place] ([facility]) ID Date Data Source [id number] 02/18/2020 06:19:00 AM EST ROMAN ([facility]) Name Value Range Interpretation Code Description Data Kaye rce(s) Supporting Document(s) bedside glucose 122 mg/dL 70-105 Above high normal Bedside Gluco se [place] ([facility]) ID Date Data Source [id number] 02/18/2020 06:19:00 AM EST ROMAN ([facility]) Name Value Range Interpretation Code Description Data Kaye rce(s) Supporting Document(s) bedside glucose 122 mg/dL 70-105 Above high normal Bedside Gluco se [place] ([facility]) ID Date Data Source [id number] 02/18/2020 06:19:00 AM EST [facility]) Name Value Range Interpretation Code Description Data Kaye rce(s) Supporting Document(s) bedside glucose 122 mg/dL 70-105 Above high normal Bedside Gluco se [facility]) ID Date Data Source [id number] 02/18/2020 06:19:00 AM EST ROMAN ([facility]) Name Value Range Interpretation Code Description Data Kaye rce(s) Supporting Document(s) bedside glucose 122 mg/dL 70-105 Above high normal Bedside Gluco se [facility]) ID Date Data Source [id number] 02/18/2020 06:19:00 AM EST ROMAN [facility]) Name Value Range Interpretation Code Description Data Kaye rce(s) Supporting Document(s) bedside glucose 122 mg/dL 70-105 Above high normal [facility] Date Data Source [id number] 02/18/2020 06:19:00 AM EST ROMAN ([facility]) Name Value Range Interpretation Code Description Data Kaye rce(s) Supporting Document(s) bedside glucose 122 mg/dL 70-105 Above high normal Bedside Gluco se [place] ([facility]) ID Date Data Source [id number] 02/18/2020 06:19:00 AM EST [place] ([facility]) Name Value Range Interpretation Code Description Data Kaye rce(s) Supporting Document(s) bedside glucose 122 mg/dL 70-105 Above high normal Bedside Gluco se [place] ([facility]) ID Date Data Source [id number] 02/18/2020 05:24:00 AM EST ROMAN ([facility]) Name Value Range Interpretation Code Description Data Kaye rce(s) Supporting Document(s) bedside glucose 82 mg/dL 70-105 Bedside Glucose ATHE NA ([facility]) ID Date Data Source [id number] 02/18/2020 05:24:00 [facility] Name Value Range Interpretation Code Description Data Kaye rce(s) Supporting Document(s) bedside glucose 82 mg/dL 70-105 Bedside Glucose ATHE NA ([facility]) ID Date Data Source [id number] 02/18/2020 05:24:00 [facility] Name Value Range Interpretation Code Description Data Kaye rce(s) Supporting Document(s) bedside glucose 82 mg/dL 70-105 Bedside Glucose ATHE NA ([facility]) ID Date Data Source [id number] 02/18/2020 05:24:00 AM EST ROMAN [facility]) Name Value Range Interpretation Code Description Data Kaye rce(s) Supporting Document(s) bedside glucose 82 mg/dL 70-105 Bedside Glucose [place]HE [place] ([facility]) ID Date Data Source [id number] 02/18/2020 05:24:00 AM EST ROMAN ([facility]) Name Value Range Interpretation Code Description Data Kaye rce(s) Supporting Document(s) bedside glucose 82 mg/dL 70-105 Bedside Glucose ATHE [place] ([facility]) ID Date Data Source [id number] 02/18/2020 05:24:00 AM EST [place] ([facility]) Name Value Range Interpretation Code Description Data Kaye rce(s) Supporting Document(s) bedside glucose 82 mg/dL 70-105 Bedside Glucose ATHE [place] ([facility]) ID Date Data Source [id number] 02/18/2020 05:24:00 AM EST ROMAN ([facility]) Name Value Range Interpretation Code Description Data Kaye rce(s) Supporting Document(s) bedside glucose 82 mg/dL 70-105 Bedside Glucose ATHE [place] ([facility]) ID Date Data Source [id number] 02/18/2020 04:20:00 AM [facility] Name Value Range Interpretation Code Description Data Kaye rce(s) Supporting Document(s) bedside glucose 101 mg/dL 70-105 Bedside Glucose ATHE [place] ([facility]) ID Date Data Source [id number] 02/18/2020 04:20:00 AM EST ROMAN ([facility]) Name Value Range Interpretation Code Description Data Kaye rce(s) Supporting Document(s) bedside glucose 101 mg/dL 70-105 Bedside Glucose ATHE [place] ([facility]) ID Date Data Source [id number] 02/18/2020 04:20:00 AM EST ROMAN ([facility]) Name Value Range Interpretation Code Description Data Kaye rce(s) Supporting Document(s) bedside glucose 101 mg/dL 70-105 Bedside Glucose ATHVanessa [place]DOÑEZ ([facility]) ID Date Data Source [id number] 02/18/2020 04:20:00 AM EST ROMAN ([facility]) Name Value Range Interpretation Code Description Data Kaye rce(s) Supporting Document(s) bedside glucose 101 mg/dL 70-105 Bedside Glucose ATHE [place] ([facility]) ID Date Data Source [id number] 02/18/2020 04:20:00 AM EST ROMAN ([facility]) Name Value Range Interpretation Code Description Data Kaye rce(s) Supporting Document(s) bedside glucose 101 mg/dL 70-105 Bedside Glucose ATHE [place] ([facility]) ID Date Data Source [id number] 02/18/2020 04:20:00 AM EST ROMAN ([facility]) Name Value Range Interpretation Code Description Data Kaye rce(s) Supporting Document(s) bedside glucose 101 mg/dL 70-105 Bedside Glucose ATHE [place] ([facility]) ID Date Data Source [id number] 02/18/2020 04:20:00 AM EST [place]AN ([facility]) Name Value Range Interpretation Code Description Data Kaye rce(s) Supporting Document(s) bedside glucose 101 mg/dL 70-105 Bedside Glucose ATHE [place] ([facility]) ID Date Data Source [id number] 02/18/2020 03:13:00 AM EST ROMAN ([facility]) Name Value Range Interpretation Code Description Data Kaye rce(s) Supporting Document(s) bedside glucose 133 mg/dL 70-105 Above high normal Bedside Gluco se [place] ([facility]) ID Date Data Source [id number] 02/18/2020 03:13:00 AM EST [place]AN ([facility]) Name Value Range Interpretation Code Description Data Kaye rce(s) Supporting Document(s) bedside glucose 133 mg/dL 70-105 Above high normal Bedside Gluco se [place] ([facility]) ID Date Data Source [id number] 02/18/2020 03:13:00 AM EST [place] ([facility]) Name Value Range Interpretation Code Description Data Kaye rce(s) Supporting Document(s) bedside glucose 133 mg/dL 70-105 Above high normal Bedside Gluco se [place] ([facility]) ID Date Data Source [id number] 02/18/2020 03:13:00 AM EST [place] ([facility]) Name Value Range Interpretation Code Description Data Kaye rce(s) Supporting Document(s) bedside glucose 133 mg/dL 70-105 Above high normal Bedside Gluco se [place] ([facility]) ID Date Data Source [id number] 02/18/2020 03:13:00 AM EST [place] ([facility]) Name Value Range Interpretation Code Description Data Kaye rce(s) Supporting Document(s) bedside glucose 133 mg/dL 70-105 Above high normal Bedside Gluco se [place] ([facility]) ID Date Data Source [id number] 02/18/2020 03:13:00 AM EST [place] ([facility]) Name Value Range Interpretation Code Description Data Kaye rce(s) Supporting Document(s) bedside glucose 133 mg/dL 70-105 Above high normal [facility] ID Date Data Source [id number] 02/18/2020 03:13:00 AM EST [facility] Name Value Range Interpretation Code Description Data Kaye rce(s) Supporting Document(s) bedside glucose 133 mg/dL 70-105 Above high normal Bedside Gluco se [place] ([facility]) ID Date Data Source [id number] 02/18/2020 02:25:00 AM EST [place] ([facility]) Name Value Range Interpretation Code Description Data Kaye rce(s) Supporting Document(s) phosphorus level 2.1 mg/dL 2.5-4.9 Below low normal Phosphorus Le analia [place] ([facility]) ID Date Data Source [id number] 02/18/2020 02:25:00 AM EST [place] ([facility]) Name Value Range Interpretation Code Description Data Kaye rce(s) Supporting Document(s) glucose, fasting 135 mg/dL 70-100 Above high normal Glucose, Fas ting [place] ([facility]) creatinine for GFR 1.64 mg/dL 0.55-1.30 Above high normal Creatinine for GFR [place] ([facility]) blood urea nitrogen 41 mg/dL 7-18 Above high normal Blood Ure a Nitrogen [place] ([facility]) glomerular filtration rate >58 Below low normal Beata merular Filtration Rate [place] ([facility]) sodium level 139 mEq/L 136-145 Sodium Level ROMAN ([facility]) potassium serum 3.7 mEq/L 3.5-5.1 Potassium Serum ATHE NA ([facility]) chloride level 107 mEq/L 98-107 Chloride Level [place] ([facility]) carbon dioxide level 25 mEq/L 21-32 Carbon Dioxide Level [place] ([facility]) anion gap 7 mEq/L 8-16 Below low normal Anion Gap [place] ( [facility]) calcium level 8.2 mg/dL 8.5-10.1 Below low normal Calcium Level AT TRAM [facility]) ID Date Data Source [id number] 02/18/2020 02:25:00 AM EST [facility]) Name Value Range Interpretation Code Description Data Kaye rce(s) Supporting Document(s) phosphorus level 2.1 mg/dL 2.5-4.9 Below low normal Phosphorus Le analia ROMAN ([facility]) ID Date Data Source [id number] 02/18/2020 02:25:00 AM EST ROMAN ([facility]) Name Value Range Interpretation Code Description Data Kaye rce(s) Supporting Document(s) glucose, fasting 135 mg/dL 70-100 Above high normal Glucose, Fas ting ROMAN ([facility]) blood urea nitrogen 41 mg/dL 7-18 Above high normal Blood Ure a Nitrogen [place] ([facility]) creatinine for GFR 1.64 mg/dL 0.55-1.30 Above high normal Creatinine for GFR [place] ([facility]) glomerular filtration rate >58 Below low normal Beata merular Filtration Rate ROMAN ([facility]) sodium level 139 mEq/L 136-145 Sodium Level ROMAN ([facility]) potassium serum 3.7 mEq/L 3.5-5.1 Potassium Serum ATHE NA ([facility]) chloride level 107 mEq/L 98-107 Chloride Level [place] ([facility]) carbon dioxide level 25 mEq/L 21-32 Carbon Dioxide Level ROM[place] ([facility]) anion gap 7 mEq/L 8-16 Below low normal Anion Gap ROM[place] ( [facility]) calcium level 8.2 mg/dL 8.5-10.1 Below low normal Calcium Level AT TRAM ([facility]) ID Date Data Source [id number] 02/18/2020 02:25:00 AM EST [place] ([facility]) Name Value Range Interpretation Code Description Data Kaye rce(s) Supporting Document(s) phosphorus level 2.1 mg/dL 2.5-4.9 Below low normal Phosphorus Le analia ROMAN ([facility]) ID Date Data Source [id number] 02/18/2020 02:25:00 AM EST [place] ([facility]) Name Value Range Interpretation Code Description Data Kaye rce(s) Supporting Document(s) glucose, fasting 135 mg/dL 70-100 Above high normal Glucose, Fas ting [place] ([facility]) blood urea nitrogen 41 mg/dL 7-18 Above high normal Blood Ure a Nitrogen ROM[place] ([facility]) creatinine for GFR 1.64 mg/dL 0.55-1.30 Above high normal Creatinine for GFR [place] ([facility]) glomerular filtration rate >58 Below low normal Beata merular Filtration Rate ROM[place] ([facility]) sodium level 139 mEq/L 136-145 Sodium Level [place] (No [facility]) potassium serum 3.7 mEq/L 3.5-5.1 Potassium Serum ATHE NA ([facility]) chloride level 107 mEq/L 98-107 Chloride Level [place] ([facility]) carbon dioxide level 25 mEq/L 21-32 Carbon Dioxide Level [place] ([facility]) calcium level 8.2 mg/dL 8.5-10.1 Below low normal Calcium Level AT [facility]) anion gap 7 mEq/L 8-16 Below low normal Anion Gap [place] ( [facility]) ID Date Data Source [id number] 02/18/2020 02:25:00 AM EST [place] ([facility]) Name Value Range Interpretation Code Description Data Kaye rce(s) Supporting Document(s) phosphorus level 2.1 mg/dL 2.5-4.9 Below low normal Phosphorus Le analia ROMAN ([facility]) ID Date Data Source [id number] 02/18/2020 02:25:00 AM EST [place] ([facility]) Name Value Range Interpretation Code Description Data Kaye rce(s) Supporting Document(s) glucose, fasting 135 mg/dL 70-100 Above high normal Glucose, Fas ting [place] ([facility]) creatinine for GFR 1.64 mg/dL 0.55-1.30 Above high normal Creatinine for GFR [place] ([facility]) blood urea nitrogen 41 mg/dL 7-18 Above high normal Blood Ure a Nitrogen [place] ([facility]) glomerular filtration rate >58 Below low normal Beata merular Filtration Rate [place] ([facility]) potassium serum 3.7 mEq/L 3.5-5.1 Potassium Serum ATHE NA ([facility]) sodium level 139 mEq/L 136-145 Sodium Level [place] (No [facility]) chloride level 107 mEq/L 98-107 Chloride Level [place] ([facility]) carbon dioxide level 25 mEq/L 21-32 Carbon Dioxide Level [place] ([facility]) anion gap 7 mEq/L 8-16 Below low normal Anion Gap [place] ( [facility]) calcium level 8.2 mg/dL 8.5-10.1 Below low normal Calcium Level AT TRAM ([facility]) ID Date Data Source [id number] 02/18/2020 02:25:00 AM EST [place] ([facility]) Name Value Range Interpretation Code Description Data Kaye rce(s) Supporting Document(s) phosphorus level 2.1 mg/dL 2.5-4.9 Below low normal Phosphorus Le analia [place] ([facility]) ID Date Data Source [id number] 02/18/2020 02:25:00 AM EST [place] ([facility]) Name Value Range Interpretation Code Description Data Kaye rce(s) Supporting Document(s) glucose, fasting 135 mg/dL 70-100 Above high normal Glucose, Fas ting [place] ([facility]) blood urea nitrogen 41 mg/dL 7-18 Above high normal Blood Ure a Nitrogen [place] ([facility]) glomerular filtration rate >58 Below low normal Beata merular Filtration Rate [place] ([facility]) creatinine for GFR 1.64 mg/dL 0.55-1.30 Above high normal Creatinine for GFR [place] ([facility]) sodium level 139 mEq/L 136-145 Sodium Level [place] (No [facility]) potassium serum 3.7 mEq/L 3.5-5.1 Potassium Serum ATHE NA ([facility]) carbon dioxide level 25 mEq/L 21-32 Carbon Dioxide Level [place] ([facility]) chloride level 107 mEq/L 98-107 Chloride Level [place] ([facility]) calcium level 8.2 mg/dL 8.5-10.1 Below low normal Calcium Level AT [facility] ([facility]) anion gap 7 mEq/L 8-16 Below low normal Anion Gap [place] ( [facility]) ID Date Data Source [id number] 02/18/2020 02:25:00 AM EST [place] ([facility]) Name Value Range Interpretation Code Description Data Kaye rce(s) Supporting Document(s) phosphorus level 2.1 mg/dL 2.5-4.9 Below low normal Phosphorus Le analia [place] ([facility]) ID Date Data Source [id number] 02/18/2020 02:25:00 AM EST [place] ([facility]) Name Value Range Interpretation Code Description Data Kaye rce(s) Supporting Document(s) glucose, fasting 135 mg/dL 70-100 Above high normal Glucose, Fas ting [place] ([facility]) creatinine for GFR 1.64 mg/dL 0.55-1.30 Above high normal Creatinine for GFR [place] ([facility]) blood urea nitrogen 41 mg/dL 7-18 Above high normal Blood Ure a Nitrogen [place] ([facility]) sodium level 139 mEq/L 136-145 Sodium Level [place] ([facility]) glomerular filtration rate >58 Below low normal Beata merular Filtration Rate [place] ([facility]) potassium serum 3.7 mEq/L 3.5-5.1 Potassium Serum ATHE NA ([facility]) carbon dioxide level 25 mEq/L 21-32 Carbon Dioxide Level [place] ([facility]) chloride level 107 mEq/L 98-107 Chloride Level [place] ([facility]) anion gap 7 mEq/L 8-16 Below low normal Anion Gap [place] ( [facility]) calcium level 8.2 mg/dL 8.5-10.1 Below low normal Calcium Level AT [facility] ([facility]) ID Date Data Source [id number] 02/18/2020 02:25:00 AM EST [place] ([facility]) Name Value Range Interpretation Code Description Data Kaye rce(s) Supporting Document(s) phosphorus level 2.1 mg/dL 2.5-4.9 Below low normal Phosphorus Le analia [place] ([facility]) ID Date Data Source [id number] 02/18/2020 02:25:00 AM EST [place] ([facility]) Name Value Range Interpretation Code Description Data Kaye rce(s) Supporting Document(s) glucose, fasting 135 mg/dL 70-100 Above high normal Glucose, Fas ting [place] ([facility]) creatinine for GFR 1.64 mg/dL 0.55-1.30 Above high normal Creatinine for GFR [place] ([facility]) blood urea nitrogen 41 mg/dL 7-18 Above high normal Blood Ure a Nitrogen [place] ([facility]) glomerular filtration rate >58 Below low normal Beata merular Filtration Rate [place] ([facility]) sodium level 139 mEq/L 136-145 Sodium Level [place] (No [facility]) potassium serum 3.7 mEq/L 3.5-5.1 Potassium Serum ATH NA ([facility]) chloride level 107 mEq/L 98-107 Chloride Level [place] ([facility]) carbon dioxide level 25 mEq/L 21-32 Carbon Dioxide Level [place] ([facility]) calcium level 8.2 mg/dL 8.5-10.1 Below low normal Calcium Level AT TRAM ([facility]) anion gap 7 mEq/L 8-16 Below low normal Anion Gap [place] ( [facility]) ID Date Data Source [id number] 02/18/2020 02:23:00 AM EST [place] ([facility]) Name Value Range Interpretation Code Description Data Kaye rce(s) Supporting Document(s) bedside glucose 135 mg/dL 70-105 Above high normal Bedside Gluco se [place] ([facility]) ID Date Data Source [id number] 02/18/2020 02:23:00 AM EST [place] ([facility]) Name Value Range Interpretation Code Description Data Kaye rce(s) Supporting Document(s) bedside glucose 135 mg/dL 70-105 Above high normal Bedside Gluco se [place] ([facility]) ID Date Data Source [id number] 02/18/2020 02:23:00 AM EST [place] ([facility]) Name Value Range Interpretation Code Description Data Kaye rce(s) Supporting Document(s) bedside glucose 135 mg/dL 70-105 Above high normal Bedside Gluco se [place] ([facility]) ID Date Data Source [id number] 02/18[facility]2020 [facility] Name Value Range Interpretation Code Description Data Kaye rce(s) Supporting Document(s) bedside glucose 135 mg/dL 70-105 Above high normal Bedside Gluco se [place] ([facility]) ID Date Data Source [id number] 02/18/2020 02:23:00 AM EST [place] ([facility]) Name Value Range Interpretation Code Description Data Kaye rce(s) Supporting Document(s) bedside glucose 135 mg/dL 70-105 Above high normal Bedside Gluco se [place] ([facility]) ID Date Data Source [id number] 02/18/2020 02:23:00 AM EST [place] ([facility]) Name Value Range Interpretation Code Description Data Kaye rce(s) Supporting Document(s) bedside glucose 135 mg/dL 70-105 Above high normal [facility] ID Date Data Source [id number] 02/18/2020 02:23:00 AM [facility] Name Value Range Interpretation Code Description Data Kaye rce(s) Supporting Document(s) bedside glucose 135 mg/dL 70-105 Above high normal Bedside Gluco se [place] ([facility]) ID Date Data Source [id number] 02/18/2020 01:09:00 AM EST [place] ([facility]) Name Value Range Interpretation Code Description Data Kaye rce(s) Supporting Document(s) bedside glucose 139 mg/dL 70-105 Above high normal Bedside Gluco se [place] ([facility]) ID Date Data Source [id number] 02/18/2020 01:09:00 [facility] Name Value Range Interpretation Code Description Data Kaye rce(s) Supporting Document(s) bedside glucose 139 mg/dL 70-105 Above high normal Bedside Gluco se [facility]) ID Date Data Source [id number] 02/18/2020 01:09:00 AM EST [facility]) Name Value Range Interpretation Code Description Data Kaye rce(s) Supporting Document(s) bedside glucose 139 mg/dL 70-105 Above high normal Bedside Gluco se [place] ([facility]) ID Date Data Source [id number] 02/18/2020 01:09:00 AM [facility] Name Value Range Interpretation Code Description Data Kaye rce(s) Supporting Document(s) bedside glucose 139 mg/dL 70-105 Above high normal [facility] ID Date Data Source [id number] 02/18/2020 01:09:00 AM [facility] Name Value Range Interpretation Code Description Data Kaye rce(s) Supporting Document(s) bedside glucose 139 mg/dL 70-105 Above high normal Bedside Gluco se [facility]) ID Date Data Source [id number] 02/18/2020 01:09:00 AM EST [place] ([facility]) Name Value Range Interpretation Code Description Data Kaye rce(s) Supporting Document(s) bedside glucose 139 mg/dL 70-105 Above high normal Bedside Gluco se [place] ([facility]) ID Date Data Source [id number] 02/18/2020 01:09:00 AM EST [place] ([facility]) Name Value Range Interpretation Code Description Data Kaye rce(s) Supporting Document(s) bedside glucose 139 mg/dL 70-105 Above high normal Bedside Gluco se [place] ([facility]) ID Date Data Source [id number] 02/18/2020 12:08:00 AM EST [place] [facility]) Name Value Range Interpretation Code Description Data Kaye rce(s) Supporting Document(s) bedside glucose 162 mg/dL 70-105 Above high normal Bedside Gluco se [place] ([facility]) ID Date Data Source [id number] 02/18/2020 12:08:00 AM [facility] Name Value Range Interpretation Code Description Data Kaye rce(s) Supporting Document(s) bedside glucose 162 mg/dL 70-105 Above high normal Bedside Gluco se [place] ([facility]) ID Date Data Source [id number] 02/18/2020 12:08:00 AM EST [place] ([facility]) Name Value Range Interpretation Code Description Data Kaye rce(s) Supporting Document(s) bedside glucose 162 mg/dL 70-105 Above high normal [facility] ID Date Data Source [id number] 02/18/2020 12:08:00 AM EST [facility] Name Value Range Interpretation Code Description Data Kaye rce(s) Supporting Document(s) bedside glucose 162 mg/dL 70-105 Above high normal Bedside Gluco se [place] ([facility]) ID Date Data Source [id number] 02/18/2020 12:08:00 AM EST [place] ([facility]) Name Value Range Interpretation Code Description Data Kaye rce(s) Supporting Document(s) bedside glucose 162 mg/dL 70-105 Above high normal Bedside Gluco se [place] ([facility]) ID Date Data Source [id number] 02/18/2020 12:08:00 AM EST [place] ([facility]) Name Value Range Interpretation Code Description Data Kaye rce(s) Supporting Document(s) bedside glucose 162 mg/dL 70-105 Above high normal Bedside Gluco se [place] ([facility]) ID Date Data Source [id number] 02/18/2020 12:08:00 AM EST [place] ([facility]) Name Value Range Interpretation Code Description Data Kaye rce(s) Supporting Document(s) bedside glucose 162 mg/dL 70-105 Above high normal Bedside Gluco se [place] ([facility]) ID Date Data Source [id number] 02/17/2020 11:37:00 PM EST [place] ([facility]) Name Value Range Interpretation Code Description Data Kaye rce(s) Supporting Document(s) bedside glucose 103 mg/dL 70-105 Bedside Glucose ATHE NA ([facility]) ID Date Data Source [id number] 02/17/2020 11:37:00 PM EST [place] ([facility]) Name Value Range Interpretation Code Description Data Kaye rce(s) Supporting Document(s) bedside glucose 103 mg/dL 70-105 Bedside Glucose ATHE NA ([facility]) ID Date Data Source [id number] 02/17/2020 11:37:00 PM EST [place] ([facility]) Name Value Range Interpretation Code Description Data Kaye rce(s) Supporting Document(s) bedside glucose 103 mg/dL 70-105 Bedside Glucose ATHVanessa ORDOÑEZ ([facility]) ID Date Data Source [id number] 02/17/2020 11:37:00 PM EST [place] ([facility]) Name Value Range Interpretation Code Description Data Kaye rce(s) Supporting Document(s) bedside glucose 103 mg/dL 70-105 Bedside Glucose ATHE [place] ([facility]) ID Date Data Source [id number] 02/17/2020 11:37:00 PM EST [place] ([facility]) Name Value Range Interpretation Code Description Data Kaye rce(s) Supporting Document(s) bedside glucose 103 mg/dL 70-105 Bedside Glucose ATHE [place] ([facility]) ID Date Data Source [id number] 02/17/2020 11:37:00 PM EST [place] ([facility]) Name Value Range Interpretation Code Description Data Kaye rce(s) Supporting Document(s) bedside glucose 103 mg/dL 70-105 Bedside Glucose ATHE [place] ([facility]) ID Date Data Source [id number] 02/17/2020 11:37:00 PM EST [place] ([facility]) Name Value Range Interpretation Code Description Data Kaye rce(s) Supporting Document(s) bedside glucose 103 mg/dL 70-105 Bedside Glucose ATHE [place] ([facility]) ID Date Data Source [id number] 02/17/2020 10:58:00 PM EST [place] ([facility]) Name Value Range Interpretation Code Description Data Kaye rce(s) Supporting Document(s) bedside glucose 79 mg/dL 70-105 Bedside Glucose ATHE [place] ([facility]) ID Date Data Source [id number] 02/17/2020 10:58:00 PM EST [place] ([facility]) Name Value Range Interpretation Code Description Data Kaye rce(s) Supporting Document(s) bedside glucose 79 mg/dL 70-105 Bedside Glucose ATHE [place] ([facility]) ID Date Data Source [id number] 02/17/2020 10:58:00 PM EST [place] ([facility]) Name Value Range Interpretation Code Description Data Kaye rce(s) Supporting Document(s) bedside glucose 79 mg/dL 70-105 Bedside Glucose ATHE [place] ([facility]) ID Date Data Source [id number] 02/17/2020 10:58:00 PM EST [place] ([facility]) Name Value Range Interpretation Code Description Data Kaye rce(s) Supporting Document(s) bedside glucose 79 mg/dL 70-105 Bedside Glucose ATHE [place] ([facility]) ID Date Data Source [id number] 02/17/2020 10:58:00 PM EST [place] ([facility]) Name Value Range Interpretation Code Description Data Kaye rce(s) Supporting Document(s) bedside glucose 79 mg/dL 70-105 Bedside Glucose ATHE [place] ([facility]) ID Date Data Source [id number] 02/17/2020 10:58:00 PM EST [place] ([facility]) Name Value Range Interpretation Code Description Data Kaye rce(s) Supporting Document(s) bedside glucose 79 mg/dL 70-105 Bedside Glucose ATHE NA ([facility]) ID Date Data Source [id number] 02/17/2020 10:58:00 PM EST [place] ([facility]) Name Value Range Interpretation Code Description Data Kaye rce(s) Supporting Document(s) bedside glucose 79 mg/dL 70-105 Bedside Glucose ATHE NA ([facility]) ID Date Data Source [id number] 02/17/2020 10:40:00 PM EST [place] ([facility]) Name Value Range Interpretation Code Description Data Kaye rce(s) Supporting Document(s) bedside glucose 77 mg/dL 70-105 Bedside Glucose ATHVanessa ORDOÑEZ ([facility]) ID Date Data Source [id number] 02/17/2020 10:40:00 PM EST [place] ([facility]) Name Value Range Interpretation Code Description Data Kaye rce(s) Supporting Document(s) bedside glucose 77 mg/dL 70-105 Bedside Glucose ATHVanessa ORDOÑEZ ([facility]) ID Date Data Source [id number] 02/17/2020 10:40:00 PM EST [place] ([facility]) Name Value Range Interpretation Code Description Data Kaye rce(s) Supporting Document(s) bedside glucose 77 mg/dL 70-105 Bedside Glucose ATHE [place] ([facility]) ID Date Data Source [id number] 02/17/2020 10:40:00 PM [facility] Name Value Range Interpretation Code Description Data Kaye rce(s) Supporting Document(s) bedside glucose 77 mg/dL 70-105 Bedside Glucose ATHE [place] ([facility]) ID Date Data Source [id number] 02/17/2020 10:40:00 PM EST [place] ([facility]) Name Value Range Interpretation Code Description Data Kaye rce(s) Supporting Document(s) bedside glucose 77 mg/dL 70-105 Bedside Glucose ATHE [place] ([facility]) ID Date Data Source [id number] 02/17/2020 10:40:00 PM EST [place] ([facility]) Name Value Range Interpretation Code Description Data Kaye rce(s) Supporting Document(s) bedside glucose 77 mg/dL 70-105 Bedside Glucose ATHE [place] ([facility]) ID Date Data Source [id number] 02/17/2020 10:40:00 PM EST [place] ([facility]) Name Value Range Interpretation Code Description Data Kaye rce(s) Supporting Document(s) bedside glucose 77 mg/dL 70-105 Bedside Glucose ATHVanessa ORDOÑEZ ([facility]) ID Date Data Source [id number] 02/17/2020 09:17:00 PM EST [place] ([facility]) Name Value Range Interpretation Code Description Data Kaye rce(s) Supporting Document(s) bedside glucose 191 mg/dL 70-105 Above high normal Bedside Gluco se ROMAN ([facility]) ID Date Data Source [id number] 02/17/2020 09:17:00 PM EST [place] ([facility]) Name Value Range Interpretation Code Description Data Kaye rce(s) Supporting Document(s) bedside glucose 191 mg/dL 70-105 Above high normal Bedside Gluco se ROMAN ([facility]) ID Date Data Source [id number] 02/17/2020 09:17:00 PM EST [place] ([facility]) Name Value Range Interpretation Code Description Data Kaye rce(s) Supporting Document(s) bedside glucose 191 mg/dL 70-105 Above high normal Bedside Gluco se ROMAN ([facility]) ID Date Data Source [id number] 02/17/2020 09:17:00 PM EST [place] ([facility]) Name Value Range Interpretation Code Description Data Kaye rce(s) Supporting Document(s) bedside glucose 191 mg/dL 70-105 Above high normal Bedside Gluco se [facility]AN ([facility]) ID Date Data Source [id number] 02/17/2020 09:17:00 PM EST [place] ([facility]) Name Value Range Interpretation Code Description Data Kaye rce(s) Supporting Document(s) bedside glucose 191 mg/dL 70-105 Above high normal Bedside Gluco se ROMAN ([facility]) ID Date Data Source [id number] 02/17/2020 09:17:00 PM EST [place] ([facility]) Name Value Range Interpretation Code Description Data Kaye rce(s) Supporting Document(s) bedside glucose 191 mg/dL 70-105 Above high normal Bedside Gluco se ROMAN ([facility]) ID Date Data Source [id number] 02/17/2020 09:17:00 PM EST [place] ([facility]) Name Value Range Interpretation Code Description Data Kaye rce(s) Supporting Document(s) bedside glucose 191 mg/dL 70-105 Above high normal Bedside Gluco se [facility] ([facility]) ID Date Data Source [id number] 02/17/2020 08:19:00 PM EST [place] ([facility]) Name Value Range Interpretation Code Description Data Kaye rce(s) Supporting Document(s) phosphorus level 4.3 mg/dL 2.5-4.9 Phosphorus Level AT [facility] ([facility]) ID Date Data Source [id number] 02/17/2020 08:19:00 PM EST [place] ([facility]) Name Value Range Interpretation Code Description Data Kaye rce(s) Supporting Document(s) creatinine for GFR 1.81 mg/dL 0.55-1.30 Above high normal Creatinine for GFR [facility] ([facility]) glucose, fasting 314 mg/dL 70-100 Above high normal Glucose, Fas ting [place] ([facility]) blood urea nitrogen 48 mg/dL 7-18 Above high normal Blood Ure a Nitrogen [facility] ([facility]) potassium serum 3.5 mEq/L 3.5-5.1 Potassium Serum AT[facility] NA ([facility]) chloride level 98 mEq/L 98-107 Chloride Level [facility] ([facility]) sodium level 134 mEq/L 136-145 Below low normal Sodium Level [place] ([facility]) glomerular filtration rate >58 Below low normal Beata merular Filtration Rate [facility] ([facility]) carbon dioxide level 19 mEq/L 21-32 Below low normal Carbon Di oxide Level [facility] ([facility]) calcium level 8.9 mg/dL 8.5-10.1 Calcium Level [facility] ( [facility]) anion gap 17 mEq/L 8-16 Above high normal Anion Gap [facility] ([facility]) ID Date Data Source [id number] 02/17/2020 08:19:00 PM EST [place] ([facility]) Name Value Range Interpretation Code Description Data Kaye rce(s) Supporting Document(s) phosphorus level 4.3 mg/dL 2.5-4.9 Phosphorus Level AT [facility]) ID Date Data Source [id number] 02/17/2020 08:19:00 PM EST [place] ([facility]) Name Value Range Interpretation Code Description Data Kaye rce(s) Supporting Document(s) glucose, fasting 314 mg/dL 70-100 Above high normal Glucose, Fas ting ROMAN ([facility]) blood urea nitrogen 48 mg/dL 7-18 Above high normal Blood Ure a Nitrogen [place] ([facility]) creatinine for GFR 1.81 mg/dL 0.55-1.30 Above high normal Creatinine for GFR [place] ([facility]) glomerular filtration rate >58 Below low normal Beata merular Filtration Rate ROM[place] ([facility]) sodium level 134 mEq/L 136-145 Below low normal Sodium Level [place] ([facility]) potassium serum 3.5 mEq/L 3.5-5.1 Potassium Serum AT[facility] NA ([facility]) calcium level 8.9 mg/dL 8.5-10.1 Calcium Level [facility] ( [facility]) chloride level 98 mEq/L 98-107 Chloride Level [facility] ([facility]) carbon dioxide level 19 mEq/L 21-32 Below low normal Carbon Di oxide Level [place] ([facility]) anion gap 17 mEq/L 8-16 Above high normal Anion Gap [place] ([facility]) ID Date Data Source [id number] 02/17/2020 08:19:00 PM EST [place] ([facility]) Name Value Range Interpretation Code Description Data Kaye rce(s) Supporting Document(s) phosphorus level 4.3 mg/dL 2.5-4.9 Phosphorus Level AT [facility] ([facility]) ID Date Data Source [id number] 02/17/2020 08:19:00 PM EST [place] ([facility]) Name Value Range Interpretation Code Description Data Kaye rce(s) Supporting Document(s) blood urea nitrogen 48 mg/dL 7-18 Above high normal Blood Ure a Nitrogen [facility] ([facility]) glucose, fasting 314 mg/dL 70-100 Above high normal Glucose, Fas ting ROMAN ([facility]) creatinine for GFR 1.81 mg/dL 0.55-1.30 Above high normal Creatinine for GFR [facility] ([facility]) sodium level 134 mEq/L 136-145 Below low normal Sodium Level [place] ([facility]) glomerular filtration rate >58 Below low normal Beata merular Filtration Rate ROMAN ([facility]) chloride level 98 mEq/L 98-107 Chloride Level [place] ([facility]) potassium serum 3.5 mEq/L 3.5-5.1 Potassium Serum [place] NA ([facility]) carbon dioxide level 19 mEq/L 21-32 Below low normal Carbon Di oxide Level [place] ([facility]) calcium level 8.9 mg/dL 8.5-10.1 Calcium Level [place] ( [facility]) anion gap 17 mEq/L 8-16 Above high normal Anion Gap [facility] ([facility]) ID Date Data Source [id number] 02/17/2020 08:19:00 PM EST [place] ([facility]) Name Value Range Interpretation Code Description Data Kaye rce(s) Supporting Document(s) phosphorus level 4.3 mg/dL 2.5-4.9 Phosphorus Level AT [facility] ([facility]) ID Date Data Source [id number] 02/17/2020 08:19:00 PM EST [place] ([facility]) Name Value Range Interpretation Code Description Data Kaye rce(s) Supporting Document(s) glucose, fasting 314 mg/dL 70-100 Above high normal Glucose, Fas ting ROMAN ([facility]) creatinine for GFR 1.81 mg/dL 0.55-1.30 Above high normal Creatinine for GFR [place] ([facility]) sodium level 134 mEq/L 136-145 Below low normal Sodium Level [place] ([facility]) glomerular filtration rate >58 Below low normal Beata merular Filtration Rate ROMAN ([facility]) blood urea nitrogen 48 mg/dL 7-18 Above high normal Blood Ure a Nitrogen [place] ([facility]) carbon dioxide level 19 mEq/L 21-32 Below low normal Carbon Di oxide Level [place] ([facility]) potassium serum 3.5 mEq/L 3.5-5.1 Potassium Serum AT[place] NA ([facility]) chloride level 98 mEq/L 98-107 Chloride Level [place] ([facility]) calcium level 8.9 mg/dL 8.5-10.1 Calcium Level [place] ( [facility]) anion gap 17 mEq/L 8-16 Above high normal Anion Gap [place] ([facility]) ID Date Data Source [id number] 02/17/2020 08:19:00 PM EST [place] ([facility]) Name Value Range Interpretation Code Description Data Kaye rce(s) Supporting Document(s) phosphorus level 4.3 mg/dL 2.5-4.9 Phosphorus Level AT [facility] ([facility]) ID Date Data Source [id number] 02/17/2020 08:19:00 PM EST [place] ([facility]) Name Value Range Interpretation Code Description Data Kaye rce(s) Supporting Document(s) glucose, fasting 314 mg/dL 70-100 Above high normal Glucose, Fas ting [place] ([facility]) blood urea nitrogen 48 mg/dL 7-18 Above high normal Blood Ure a Nitrogen [place] ([facility]) creatinine for GFR 1.81 mg/dL 0.55-1.30 Above high normal Creatinine for GFR [place] ([facility]) glomerular filtration rate >58 Below low normal Beata merular Filtration Rate ROM[place] ([facility]) sodium level 134 mEq/L 136-145 Below low normal Sodium Level [place] NA ([facility]) potassium serum 3.5 mEq/L 3.5-5.1 Potassium Serum AT[facility] NA ([facility]) carbon dioxide level 19 mEq/L 21-32 Below low normal Carbon Di oxide Level ROMAN ([facility]) chloride level 98 mEq/L 98-107 Chloride Level [place] ([facility]) anion gap 17 mEq/L 8-16 Above high normal Anion Gap [facility] ([facility]) calcium level 8.9 mg/dL 8.5-10.1 Calcium Level [place] ( [facility]) ID Date Data Source [id number] 02/17/2020 08:19:00 PM EST [place] ([facility]) Name Value Range Interpretation Code Description Data Kaye rce(s) Supporting Document(s) phosphorus level 4.3 mg/dL 2.5-4.9 Phosphorus Level AT [place] ([facility]) ID Date Data Source [id number] 02/17/2020 08:19:00 PM EST [place] ([facility]) Name Value Range Interpretation Code Description Data Kaye rce(s) Supporting Document(s) glucose, fasting 314 mg/dL 70-100 Above high normal Glucose, Fas ting [place] ([facility]) blood urea nitrogen 48 mg/dL 7-18 Above high normal Blood Ure a Nitrogen [facility] ([facility]) creatinine for GFR 1.81 mg/dL 0.55-1.30 Above high normal Creatinine for GFR [place] ([facility]) glomerular filtration rate >58 Below low normal Beata merular Filtration Rate ROM[place] ([facility]) sodium level 134 mEq/L 136-145 Below low normal Sodium Level [place] NA ([facility]) carbon dioxide level 19 mEq/L 21-32 Below low normal Carbon Di oxide Level [facility] ([facility]) potassium serum 3.5 mEq/L 3.5-5.1 Potassium Serum ATHE NA ([facility]) chloride level 98 mEq/L 98-107 Chloride Level [facility] ([facility]) anion gap 17 mEq/L 8-16 Above high normal Anion Gap [facility] ([facility]) calcium level 8.9 mg/dL 8.5-10.1 Calcium Level [place] ( [facility]) ID Date Data Source [id number] 02/17/2020 08:19:00 PM EST [place] ([facility]) Name Value Range Interpretation Code Description Data Kaye rce(s) Supporting Document(s) phosphorus level 4.3 mg/dL 2.5-4.9 Phosphorus Level AT [facility] ([facility]) ID Date Data Source [id number] 02/17/2020 08:19:00 PM EST [place] ([facility]) Name Value Range Interpretation Code Description Data Kaye rce(s) Supporting Document(s) blood urea nitrogen 48 mg/dL 7-18 Above high normal Blood Ure a Nitrogen [facility] ([facility]) glomerular filtration rate >58 Below low normal Beata merular Filtration Rate [facility] ([facility]) glucose, fasting 314 mg/dL 70-100 Above high normal Glucose, Fas ting [place] ([facility]) creatinine for GFR 1.81 mg/dL 0.55-1.30 Above high normal Creatinine for GFR [place] ([facility]) sodium level 134 mEq/L 136-145 Below low normal Sodium Level AT[place] NA ([facility]) potassium serum 3.5 mEq/L 3.5-5.1 Potassium Serum AT[facility] NA ([facility]) carbon dioxide level 19 mEq/L 21-32 Below low normal Carbon Di oxide Level [facility] ([facility]) chloride level 98 mEq/L 98-107 Chloride Level [place] ([facility]) anion gap 17 mEq/L 8-16 Above high normal Anion Gap [facility] ([facility]) calcium level 8.9 mg/dL 8.5-10.1 Calcium Level [facility] ( [facility]) ID Date Data Source [id number] 02/17/2020 07:12:00 PM EST [place] ([facility]) Name Value Range Interpretation Code Description Data Kaye rce(s) Supporting Document(s) bedside glucose 327 mg/dL 70-105 Above high normal Bedside Gluco se [place]AN ([facility]) ID Date Data Source [id number] 02/17/2020 07:12:00 PM EST [place] ([facility]) Name Value Range Interpretation Code Description Data Kaye rce(s) Supporting Document(s) bedside glucose 327 mg/dL 70-105 Above high normal Bedside Gluco se [place] ([facility]) ID Date Data Source [id number] 02/17/2020 07:12:00 PM EST [place] ([facility]) Name Value Range Interpretation Code Description Data Kaye rce(s) Supporting Document(s) bedside glucose 327 mg/dL 70-105 Above high normal Bedside Gluco se [place] ([facility]) ID Date Data Source [id number] 02/17/2020 07:12:00 PM EST [place] ([facility]) Name Value Range Interpretation Code Description Data Kaye rce(s) Supporting Document(s) bedside glucose 327 mg/dL 70-105 Above high normal Bedside Gluco se [place] ([facility]) ID Date Data Source [id number] 02/17/2020 07:12:00 PM EST [place] ([facility]) Name Value Range Interpretation Code Description Data Kaye rce(s) Supporting Document(s) bedside glucose 327 mg/dL 70-105 Above high normal Bedside Gluco se [place] ([facility]) ID Date Data Source [id number] 02/17/2020 07:12:00 PM EST [place] ([facility]) Name Value Range Interpretation Code Description Data Kaye rce(s) Supporting Document(s) bedside glucose 327 mg/dL 70-105 Above high normal Bedside Gluco se [place] ([facility]) ID Date Data Source [id number] 02/17/2020 07:12:00 PM EST [place] ([facility]) Name Value Range Interpretation Code Description Data Kaye rce(s) Supporting Document(s) bedside glucose 327 mg/dL 70-105 Above high normal Bedside Gluco se [place] ([facility]) ID Date Data Source [id number] 02/17/2020 06:57:00 PM EST [place] ([facility]) Name Value Range Interpretation Code Description Data Kaye rce(s) Supporting Document(s) phosphorus level 4.4 mg/dL 2.5-4.9 Phosphorus Level AT [facility] ([facility]) ID Date Data Source [id number] 02/17/2020 06:57:00 PM EST [place] ([facility]) Name Value Range Interpretation Code Description Data Kaye rce(s) Supporting Document(s) glucose, fasting 329 mg/dL 70-100 Above high normal Glucose, Fas ting [place] ([facility]) sodium level 132 mEq/L 136-145 Below low normal Sodium Level [facility] NA ([facility]) blood urea nitrogen 50 mg/dL 7-18 Above high normal Blood Ure a Nitrogen [place] ([facility]) creatinine for GFR 1.77 mg/dL 0.55-1.30 Above high normal Creatinine for GFR [facility] ([facility]) glomerular filtration rate >58 Below low normal Beata merular Filtration Rate [place] ([facility]) carbon dioxide level 18 mEq/L 21-32 Below low normal Carbon Di oxide Level [place] ([facility]) anion gap 18 mEq/L 8-16 Above high normal Anion Gap [place] ([facility]) chloride level 96 mEq/L 98-107 Below low normal Chloride Level [place] ([facility]) potassium serum 3.9 mEq/L 3.5-5.1 Potassium Serum [place] NA ([facility]) calcium level 8.9 mg/dL 8.5-10.1 Calcium Level [place] ( [facility]) ID Date Data Source [id number] 02/17/2020 06:57:00 PM EST [place] ([facility]) Name Value Range Interpretation Code Description Data Kaye rce(s) Supporting Document(s) phosphorus level 4.4 mg/dL 2.5-4.9 Phosphorus Level AT [facility]) ID Date Data Source [id number] 02/17/2020 06:57:00 PM EST [place] ([facility]) Name Value Range Interpretation Code Description Data Kaye rce(s) Supporting Document(s) glucose, fasting 329 mg/dL 70-100 Above high normal Glucose, Fas ting [place] ([facility]) blood urea nitrogen 50 mg/dL 7-18 Above high normal Blood Ure a Nitrogen [place] ([facility]) creatinine for GFR 1.77 mg/dL 0.55-1.30 Above high normal Creatinine for GFR [place] ([facility]) glomerular filtration rate >58 Below low normal Beata merular Filtration Rate [place] ([facility]) potassium serum 3.9 mEq/L 3.5-5.1 Potassium Serum [facility] NA ([facility]) sodium level 132 mEq/L 136-145 Below low normal Sodium Level [place] ([facility]) chloride level 96 mEq/L 98-107 Below low normal Chloride Level [place] ([facility]) carbon dioxide level 18 mEq/L 21-32 Below low normal Carbon Di oxide Level [place] ([facility]) anion gap 18 mEq/L 8-16 Above high normal Anion Gap [facility] ([facility]) calcium level 8.9 mg/dL 8.5-10.1 Calcium Level [place] ( [facility]) ID Date Data Source [id number] 02/17/2020 06:57:00 PM EST [place] ([facility]) Name Value Range Interpretation Code Description Data Kaye rce(s) Supporting Document(s) phosphorus level 4.4 mg/dL 2.5-4.9 Phosphorus Level AT [facility] ([facility]) ID Date Data Source [id number] 02/17/2020 06:57:00 PM EST [place] ([facility]) Name Value Range Interpretation Code Description Data Kaye rce(s) Supporting Document(s) glucose, fasting 329 mg/dL 70-100 Above high normal Glucose, Fas ting [place] ([facility]) creatinine for GFR 1.77 mg/dL 0.55-1.30 Above high normal Creatinine for GFR [place] ([facility]) blood urea nitrogen 50 mg/dL 7-18 Above high normal Blood Ure a Nitrogen [place] ([facility]) glomerular filtration rate >58 Below low normal Beata merular Filtration Rate [place] ([facility]) potassium serum 3.9 mEq/L 3.5-5.1 Potassium Serum AT[facility] NA ([facility]) sodium level 132 mEq/L 136-145 Below low normal Sodium Level [facility] [place] ([facility]) chloride level 96 mEq/L 98-107 Below low normal Chloride Level [facility] ([facility]) anion gap 18 mEq/L 8-16 Above high normal Anion Gap [facility] ([facility]) calcium level 8.9 mg/dL 8.5-10.1 Calcium Level [place] ( [facility]) carbon dioxide level 18 mEq/L 21-32 Below low normal Carbon Di oxide Level [place] ([facility]) ID Date Data Source [id number] 02/17/2020 06:57:00 PM EST [place] ([facility]) Name Value Range Interpretation Code Description Data Kaye rce(s) Supporting Document(s) phosphorus level 4.4 mg/dL 2.5-4.9 Phosphorus Level AT [facility] ([facility]) ID Date Data Source [id number] 02/17/2020 06:57:00 PM EST [place] ([facility]) Name Value Range Interpretation Code Description Data Kaye rce(s) Supporting Document(s) glucose, fasting 329 mg/dL 70-100 Above high normal Glucose, Fas ting [place] ([facility]) blood urea nitrogen 50 mg/dL 7-18 Above high normal Blood Ure a Nitrogen [place] ([facility]) creatinine for GFR 1.77 mg/dL 0.55-1.30 Above high normal Creatinine for GFR [place] ([facility]) potassium serum 3.9 mEq/L 3.5-5.1 Potassium Serum ATHE NA ([facility]) glomerular filtration rate >58 Below low normal Beata merular Filtration Rate [place] ([facility]) sodium level 132 mEq/L 136-145 Below low normal Sodium Level [place] ([facility]) carbon dioxide level 18 mEq/L 21-32 Below low normal Carbon Di oxide Level [place] ([facility]) chloride level 96 mEq/L 98-107 Below low normal Chloride Level [place] ([facility]) anion gap 18 mEq/L 8-16 Above high normal Anion Gap [place] ([facility]) calcium level 8.9 mg/dL 8.5-10.1 Calcium Level [place] ( [facility]) ID Date Data Source [id number] 02/17/2020 06:57:00 PM EST [place] ([facility]) Name Value Range Interpretation Code Description Data Kaye rce(s) Supporting Document(s) phosphorus level 4.4 mg/dL 2.5-4.9 Phosphorus Level AT [facility] ([facility]) ID Date Data Source [id number] 02/17/2020 06:57:00 PM EST [place] ([facility]) Name Value Range Interpretation Code Description Data Kaye rce(s) Supporting Document(s) blood urea nitrogen 50 mg/dL 7-18 Above high normal Blood Ure a Nitrogen ROMAN ([facility]) creatinine for GFR 1.77 mg/dL 0.55-1.30 Above high normal Creatinine for GFR ROMAN ([facility]) glucose, fasting 329 mg/dL 70-100 Above high normal Glucose, Fas ting ROMAN ([facility]) potassium serum 3.9 mEq/L 3.5-5.1 Potassium Serum ATHE NA ([facility]) sodium level 132 mEq/L 136-145 Below low normal Sodium Level ATHE NA ([facility]) glomerular filtration rate >58 Below low normal Beata merular Filtration Rate ROMAN ([facility]) anion gap 18 mEq/L 8-16 Above high normal Anion Gap ROMAN ([facility]) chloride level 96 mEq/L 98-107 Below low normal Chloride Level ROMAN ([facility]) carbon dioxide level 18 mEq/L 21-32 Below low normal Carbon Di oxide Level ROMAN ([facility]) calcium level 8.9 mg/dL 8.5-10.1 Calcium Level [place] ( [facility]) ID Date Data Source [id number] 02/17/2020 06:57:00 PM EST ROMAN ([facility]) Name Value Range Interpretation Code Description Data Kaye rce(s) Supporting Document(s) phosphorus level 4.4 mg/dL 2.5-4.9 Phosphorus Level AT TRAM ([facility]) ID Date Data Source [id number] 02/17/2020 06:57:00 PM EST ROMAN ([facility]) Name Value Range Interpretation Code Description Data Kaye rce(s) Supporting Document(s) blood urea nitrogen 50 mg/dL 7-18 Above high normal Blood Ure a Nitrogen ROMAN ([facility]) creatinine for GFR 1.77 mg/dL 0.55-1.30 Above high normal Creatinine for GFR ROMAN ([facility]) glucose, fasting 329 mg/dL 70-100 Above high normal Glucose, Fas ting ROMAN ([facility]) chloride level 96 mEq/L 98-107 Below low normal Chloride Level [place] ([facility]) potassium serum 3.9 mEq/L 3.5-5.1 Potassium Serum ATHE NA ([facility]) sodium level 132 mEq/L 136-145 Below low normal Sodium Level ATHE NA ([facility]) glomerular filtration rate >58 Below low normal Beata merular Filtration Rate ROMAN ([facility]) anion gap 18 mEq/L 8-16 Above high normal Anion Gap ROMAN ([facility]) carbon dioxide level 18 mEq/L 21-32 Below low normal Carbon Di oxide Level ROMAN ([facility]) calcium level 8.9 mg/dL 8.5-10.1 Calcium Level [place] ( [facility]) ID Date Data Source [id number] 02/17/2020 06:57:00 PM EST [place] ([facility]) Name Value Range Interpretation Code Description Data Kaye rce(s) Supporting Document(s) phosphorus level 4.4 mg/dL 2.5-4.9 Phosphorus Level AT [facility]) ID Date Data Source [id number] 02/17/2020 06:57:00 PM EST [place] ([facility]) Name Value Range Interpretation Code Description Data Kaye rce(s) Supporting Document(s) blood urea nitrogen 50 mg/dL 7-18 Above high normal Blood Ure a Nitrogen ROMAN ([facility]) creatinine for GFR 1.77 mg/dL 0.55-1.30 Above high normal Creatinine for GFR ROMAN ([facility]) glomerular filtration rate >58 Below low normal Beata merular Filtration Rate ROMAN ([facility]) glucose, fasting 329 mg/dL 70-100 Above high normal Glucose, Fas ting ROMAN ([facility]) sodium level 132 mEq/L 136-145 Below low normal Sodium Level ATHE NA ([facility]) chloride level 96 mEq/L 98-107 Below low normal Chloride Level ROMAN ([facility]) carbon dioxide level 18 mEq/L 21-32 Below low normal Carbon Di oxide Level ROMAN ([facility]) potassium serum 3.9 mEq/L 3.5-5.1 Potassium Serum ATHE NA ([facility]) anion gap 18 mEq/L 8-16 Above high normal Anion Gap ROMAN ([facility]) calcium level 8.9 mg/dL 8.5-10.1 Calcium Level [place] ( [facility]) ID Date Data Source [id number] 02/17/2020 04:21:00 PM EST ROMAN ([facility]) Name Value Range Interpretation Code Description Data Kaye rce(s) Supporting Document(s) osmolality serum 311 mOsm/kg 275-295 Above high normal Osmolality Serum ROMAN ([facility]) ID Date Data Source [id number] 02/17/2020 04:21:00 PM EST ROMAN ([facility]) Name Value Range Interpretation Code Description Data Kaye rce(s) Supporting Document(s) lipase 68 U/L 73-393 Below low normal Lipase [place] ( [facility]) ID Date Data Source [id number] 02/17/2020 04:21:00 PM EST [place] ([facility]) Name Value Range Interpretation Code Description Data Kaye rce(s) Supporting Document(s) acetone/ketone > 46.00 <2.81 Above high normal Acetone/ketone [place] ([facility]) ID Date Data Source [id number] 02/17/2020 04:21:00 PM EST ROMAN ([facility]) Name Value Range Interpretation Code Description Data Kaye rce(s) Supporting Document(s) glucose, fasting 337 mg/dL 70-100 Above high normal Glucose, Fas ting ROMAN ([facility]) creatinine for GFR 1.73 mg/dL 0.55-1.30 Above high normal Creatinine for GFR [place] ([facility]) sodium level 132 mEq/L 136-145 Below low normal Sodium Level [place] NA ([facility]) glomerular filtration rate >58 Below low normal Beata merular Filtration Rate ROMAN ([facility]) blood urea nitrogen 49 mg/dL 7-18 Above high normal Blood Ure a Nitrogen ROMAN ([facility]) carbon dioxide level 17 mEq/L 21-32 Below low normal Carbon Di oxide Level ROMAN ([facility]) chloride level 95 mEq/L 98-107 Below low normal Chloride Level ROM[place] ([facility]) anion gap 20 mEq/L 8-16 Above high normal Anion Gap ROMAN ([facility]) potassium serum 4.1 mEq/L 3.5-5.1 Potassium Serum ATHE NA ([facility]) calcium level 9.5 mg/dL 8.5-10.1 Calcium Level [place] ( [facility]) ID Date Data Source [id number] 02/17/2020 04:21:00 PM EST [place] ([facility]) Name Value Range Interpretation Code Description Data Kaye rce(s) Supporting Document(s) AST/SGOT 22 U/L 7-37 AST/SGOT [place] ([facility]) ALT/SGPT 18 U/L 12-78 ALT/SGPT [place] ([facility]) alkaline phosphatase 79 U/L 45-117 Alkaline Phosph atase [place] ([facility]) bilirubin,direct 0.2 mg/dL 0.0-0.2 Bilirubin,direct AT TRAM ([facility]) total protein 8.2 gm/dL 6.4-8.2 Total Protein [place] ( [facility]) bilirubin,total 1.0 mg/dL 0.2-1.0 Bilirubin,total ATHE ([facility]) albumin/globulin ratio 1.2-2.2 Below low normal Albumin /globulin Ratio ROMAN ([facility]) albumin 4.3 gm/dL 3.2-5.2 Albumin [place] ([facility]) ID Date Data Source [id number] 02/17/2020 04:21:00 PM EST [place] ([facility]) Name Value Range Interpretation Code Description Data Kaye rce(s) Supporting Document(s) osmolality serum 311 mOsm/kg 275-295 Above high normal Osmolality Serum [place] ([facility]) ID Date Data Source [id number] 02/17/2020 04:21:00 PM EST [place] ([facility]) Name Value Range Interpretation Code Description Data Kaye rce(s) Supporting Document(s) lipase 68 U/L 73-393 Below low normal Lipase [place] ( [facility]) ID Date Data Source [id number] 02/17/2020 04:21:00 PM EST [place] ([facility]) Name Value Range Interpretation Code Description Data Kaye rce(s) Supporting Document(s) acetone/ketone > 46.00 <2.81 Above high normal Acetone/ketone [facility]) ID Date Data Source [id number] 02/17/2020 04:21:00 PM EST [place] ([facility]) Name Value Range Interpretation Code Description Data Kaye rce(s) Supporting Document(s) glucose, fasting 337 mg/dL 70-100 Above high normal Glucose, Fas ting ROMAN ([facility]) creatinine for GFR 1.73 mg/dL 0.55-1.30 Above high normal Creatinine for GFR [place] ([facility]) glomerular filtration rate >58 Below low normal Beata merular Filtration Rate ROM[place] ([facility]) blood urea nitrogen 49 mg/dL 7-18 Above high normal Blood Ure a Nitrogen [place] ([facility]) sodium level 132 mEq/L 136-145 Below low normal Sodium Level [place] ([facility]) chloride level 95 mEq/L 98-107 Below low normal Chloride Level [place] ([facility]) potassium serum 4.1 mEq/L 3.5-5.1 Potassium Serum [place] NA ([facility]) calcium level 9.5 mg/dL 8.5-10.1 Calcium Level [place] ( [facility]) anion gap 20 mEq/L 8-16 Above high normal Anion Gap ROM[place] ([facility]) carbon dioxide level 17 mEq/L 21-32 Below low normal Carbon Di oxide Level [place] ([facility]) ID Date Data Source [id number] 02/17/2020 04:21:00 PM EST [place] ([facility]) Name Value Range Interpretation Code Description Data Kaye rce(s) Supporting Document(s) ALT/SGPT 18 U/L 12-78 ALT/SGPT [place] ([facility]) AST/SGOT 22 U/L 7-37 AST/SGOT [place] ([facility]) alkaline phosphatase 79 U/L 45-117 Alkaline Phosph atase [place] ([facility]) bilirubin,total 1.0 mg/dL 0.2-1.0 Bilirubin,total ATHE NA ([facility]) total protein 8.2 gm/dL 6.4-8.2 Total Protein [place] ( [facility]) bilirubin,direct 0.2 mg/dL 0.0-0.2 Bilirubin,direct AT TRAM ([facility]) albumin 4.3 gm/dL 3.2-5.2 Albumin [place] ([facility]) albumin/globulin ratio 1.2-2.2 Below low normal Albumin /globulin Ratio [place] ([facility]) ID Date Data Source [id number] 02/17/2020 04:21:00 PM EST [place] ([facility]) Name Value Range Interpretation Code Description Data Kaye rce(s) Supporting Document(s) osmolality serum 311 mOsm/kg 275-295 Above high normal Osmolality Serum [place] ([facility]) ID Date Data Source [id number] 02/17/2020 04:21:00 PM EST [place] ([facility]) Name Value Range Interpretation Code Description Data Kaye rce(s) Supporting Document(s) lipase 68 U/L 73-393 Below low normal Lipase [place] ( [facility]) ID Date Data Source [id number] 02/17/2020 04:21:00 PM EST [place] ([facility]) Name Value Range Interpretation Code Description Data Kaye rce(s) Supporting Document(s) acetone/ketone > 46.00 <2.81 Above high normal Acetone/ketone [place] ([facility]) ID Date Data Source [id number] 02/17/2020 04:21:00 PM EST [place] ([facility]) Name Value Range Interpretation Code Description Data Kaye rce(s) Supporting Document(s) blood urea nitrogen 49 mg/dL 7-18 Above high normal Blood Ure a Nitrogen ROM[place] ([facility]) creatinine for GFR 1.73 mg/dL 0.55-1.30 Above high normal Creatinine for GFR [place] ([facility]) glucose, fasting 337 mg/dL 70-100 Above high normal Glucose, Fas ting ROMAN ([facility]) sodium level 132 mEq/L 136-145 Below low normal Sodium Level [place] ([facility]) glomerular filtration rate >58 Below low normal Beata merular Filtration Rate ROM[place] ([facility]) potassium serum 4.1 mEq/L 3.5-5.1 Potassium Serum ATHE NA ([facility]) carbon dioxide level 17 mEq/L 21-32 Below low normal Carbon Di oxide Level [place] ([facility]) chloride level 95 mEq/L 98-107 Below low normal Chloride Level [place] ([facility]) anion gap 20 mEq/L 8-16 Above high normal Anion Gap ROM[place] ([facility]) calcium level 9.5 mg/dL 8.5-10.1 Calcium Level [place] ( [facility]) ID Date Data Source [id number] 02/17/2020 04:21:00 PM EST [place] ([facility]) Name Value Range Interpretation Code Description Data Kaye rce(s) Supporting Document(s) AST/SGOT 22 U/L 7-37 AST/SGOT [place] ([facility]) ALT/SGPT 18 U/L 12-78 ALT/SGPT [place] ([facility]) alkaline phosphatase 79 U/L 45-117 Alkaline Phosph atase [place] ([facility]) bilirubin,total 1.0 mg/dL 0.2-1.0 Bilirubin,total ATHE NA ([facility]) bilirubin,direct 0.2 mg/dL 0.0-0.2 Bilirubin,direct AT TRAM ([facility]) total protein 8.2 gm/dL 6.4-8.2 Total Protein [place] ( [facility]) albumin 4.3 gm/dL 3.2-5.2 Albumin [place] ([facility]) albumin/globulin ratio 1.2-2.2 Below low normal Albumin /globulin Ratio [place] ([facility]) ID Date Data Source [id number] 02/17/2020 04:21:00 PM EST [place] ([facility]) Name Value Range Interpretation Code Description Data Kaye rce(s) Supporting Document(s) osmolality serum 311 mOsm/kg 275-295 Above high normal Osmolality Serum [place] ([facility]) ID Date Data Source [id number] 02/17/2020 04:21:00 PM EST [place] ([facility]) Name Value Range Interpretation Code Description Data Kaye rce(s) Supporting Document(s) lipase 68 U/L 73-393 Below low normal Lipase [place] ( [facility]) ID Date Data Source [id number] 02/17/2020 04:21:00 PM EST [place] ([facility]) Name Value Range Interpretation Code Description Data Kaye rce(s) Supporting Document(s) acetone/ketone > 46.00 <2.81 Above high normal [facility] Data Source [id number] 02/17/2020 04:21:00 PM EST [place] ([facility]) Name Value Range Interpretation Code Description Data Kaye rce(s) Supporting Document(s) creatinine for GFR 1.73 mg/dL 0.55-1.30 Above high normal Creatinine for GFR [place] ([facility]) glucose, fasting 337 mg/dL 70-100 Above high normal Glucose, Fas ting [place] ([facility]) blood urea nitrogen 49 mg/dL 7-18 Above high normal Blood Ure a Nitrogen [place] ([facility]) sodium level 132 mEq/L 136-145 Below low normal Sodium Level ATHE ([facility]) glomerular filtration rate >58 Below low normal Beata merular Filtration Rate [place] ([facility]) potassium serum 4.1 mEq/L 3.5-5.1 Potassium Serum ATHE ([facility]) carbon dioxide level 17 mEq/L 21-32 Below low normal Carbon Di oxide Level [place] ([facility]) anion gap 20 mEq/L 8-16 Above high normal Anion Gap [place] ([facility]) chloride level 95 mEq/L 98-107 Below low normal Chloride Level [place] ([facility]) calcium level 9.5 mg/dL 8.5-10.1 Calcium Level [place] ( [facility]) ID Date Data Source [id number] 02/17/2020 04:21:00 PM EST [place] ([facility]) Name Value Range Interpretation Code Description Data Kaye rce(s) Supporting Document(s) AST/SGOT 22 U/L 7-37 AST/SGOT [place] ([facility]) alkaline phosphatase 79 U/L 45-117 Alkaline Phosph atase [place] ([facility]) ALT/SGPT 18 U/L 12-78 ALT/SGPT [place] ([facility]) total protein 8.2 gm/dL 6.4-8.2 Total Protein [place] ( [facility]) bilirubin,total 1.0 mg/dL 0.2-1.0 Bilirubin,total ATHE ([facility]) bilirubin,direct 0.2 mg/dL 0.0-0.2 Bilirubin,direct AT TRAM [facility]) albumin 4.3 gm/dL 3.2-5.2 Albumin [place] ([facility]) albumin/globulin ratio 1.2-2.2 Below low normal Albumin /globulin Ratio ROM[place] ([facility]) ID Date Data Source [id number] 02/17/2020 04:21:00 PM EST [place] ([facility]) Name Value Range Interpretation Code Description Data Kaye rce(s) Supporting Document(s) osmolality serum 311 mOsm/kg 275-295 Above high normal Osmolality Serum [place] ([facility]) ID Date Data Source [id number] 02/17/2020 04:21:00 PM EST [place] ([facility]) Name Value Range Interpretation Code Description Data Kaye rce(s) Supporting Document(s) lipase 68 U/L 73-393 Below low normal Lipase [place] ( [facility]) ID Date Data Source [id number] 02/17/2020 04:21:00 PM EST [place] ([facility]) Name Value Range Interpretation Code Description Data Kaye rce(s) Supporting Document(s) acetone/ketone > 46.00 <2.81 Above high normal Acetone/ketone [place] ([facility]) ID Date Data Source [id number] 02/17/2020 04:21:00 PM EST [place] ([facility]) Name Value Range Interpretation Code Description Data Kaye rce(s) Supporting Document(s) glucose, fasting 337 mg/dL 70-100 Above high normal Glucose, Fas ting [place] ([facility]) blood urea nitrogen 49 mg/dL 7-18 Above high normal Blood Ure a Nitrogen [place] ([facility]) creatinine for GFR 1.73 mg/dL 0.55-1.30 Above high normal Creatinine for GFR [place] ([facility]) glomerular filtration rate >58 Below low normal Beata merular Filtration Rate [place] ([facility]) sodium level 132 mEq/L 136-145 Below low normal Sodium Level [place] NA ([facility]) potassium serum 4.1 mEq/L 3.5-5.1 Potassium Serum ATHE NA ([facility]) chloride level 95 mEq/L 98-107 Below low normal Chloride Level [place] ([facility]) calcium level 9.5 mg/dL 8.5-10.1 Calcium Level [place] ( [facility]) anion gap 20 mEq/L 8-16 Above high normal Anion Gap ROM[place] ([facility]) carbon dioxide level 17 mEq/L 21-32 Below low normal Carbon Di oxide Level ROM[place] ([facility]) ID Date Data Source [id number] 02/17/2020 04:21:00 PM EST [place] ([facility]) Name Value Range Interpretation Code Description Data Kaye rce(s) Supporting Document(s) AST/SGOT 22 U/L 7-37 AST/SGOT [place] ([facility]) ALT/SGPT 18 U/L 12-78 ALT/SGPT [place] ([facility]) alkaline phosphatase 79 U/L 45-117 Alkaline Phosph atase [place] ([facility]) bilirubin,total 1.0 mg/dL 0.2-1.0 Bilirubin,total ATHE ([facility]) bilirubin,direct 0.2 mg/dL 0.0-0.2 Bilirubin,direct AT TRAM ([facility]) total protein 8.2 gm/dL 6.4-8.2 Total Protein [place] ( [facility]) albumin 4.3 gm/dL 3.2-5.2 Albumin [place] ([facility]) albumin/globulin ratio 1.2-2.2 Below low normal Albumin /globulin Ratio ROM[place] ([facility]) ID Date Data Source [id number] 02/17/2020 04:21:00 PM EST [place] ([facility]) Name Value Range Interpretation Code Description Data Kaye rce(s) Supporting Document(s) osmolality serum 311 mOsm/kg 275-295 Above high normal Osmolality Serum [place] ([facility]) ID Date Data Source [id number] 02/17/2020 04:21:00 PM EST [place] ([facility]) Name Value Range Interpretation Code Description Data Kaye rce(s) Supporting Document(s) lipase 68 U/L 73-393 Below low normal Lipase [place] ( [facility]) ID Date Data Source [id number] 02/17/2020 04:21:00 PM EST [place] ([facility]) Name Value Range Interpretation Code Description Data Kaye rce(s) Supporting Document(s) acetone/ketone > 46.00 <2.81 Above high normal Acetone/ketone [place] ([facility]) ID Date Data Source [id number] 02/17/2020 04:21:00 PM EST [place] ([facility]) Name Value Range Interpretation Code Description Data Kaye rce(s) Supporting Document(s) glucose, fasting 337 mg/dL 70-100 Above high normal Glucose, Fas ting ROMAN ([facility]) creatinine for GFR 1.73 mg/dL 0.55-1.30 Above high normal Creatinine for GFR [place] ([facility]) blood urea nitrogen 49 mg/dL 7-18 Above high normal Blood Ure a Nitrogen ROM[place] ([facility]) glomerular filtration rate >58 Below low normal Beata merular Filtration Rate ROM[place] ([facility]) potassium serum 4.1 mEq/L 3.5-5.1 Potassium Serum ATHE NA ([facility]) chloride level 95 mEq/L 98-107 Below low normal Chloride Level [facility] ([facility]) sodium level 132 mEq/L 136-145 Below low normal Sodium Level ATHE NA ([facility]) anion gap 20 mEq/L 8-16 Above high normal Anion Gap [facility] ([facility]) carbon dioxide level 17 mEq/L 21-32 Below low normal Carbon Di oxide Level ROMAN ([facility]) calcium level 9.5 mg/dL 8.5-10.1 Calcium Level [place] ( [facility]) ID Date Data Source [id number] 02/17/2020 04:21:00 PM EST [place] ([facility]) Name Value Range Interpretation Code Description Data Kaye rce(s) Supporting Document(s) ALT/SGPT 18 U/L 12-78 ALT/SGPT [facility] ([facility]) AST/SGOT 22 U/L 7-37 AST/SGOT [place] ([facility]) bilirubin,direct 0.2 mg/dL 0.0-0.2 Bilirubin,direct AT TRAM ([facility]) alkaline phosphatase 79 U/L 45-117 Alkaline Phosph atase ROM[facility] ([facility]) bilirubin,total 1.0 mg/dL 0.2-1.0 Bilirubin,total [place] ([facility]) albumin 4.3 gm/dL 3.2-5.2 Albumin [place] ([facility]) total protein 8.2 gm/dL 6.4-8.2 Total Protein [place] ( [facility]) albumin/globulin ratio 1.2-2.2 Below low normal Albumin /globulin Ratio ROM[place] ([facility]) ID Date Data Source [id number] 02/17/2020 04:21:00 PM EST [place] ([facility]) Name Value Range Interpretation Code Description Data Kaye rce(s) Supporting Document(s) blood urea nitrogen 49 mg/dL 7-18 Above high normal Blood Ure a Nitrogen [place] ([facility]) glucose, fasting 337 mg/dL 70-100 Above high normal Glucose, Fas ting ROM[place] ([facility]) sodium level 132 mEq/L 136-145 Below low normal Sodium Level [place] NA ([facility]) potassium serum 4.1 mEq/L 3.5-5.1 Potassium Serum [place] NA ([facility]) creatinine for GFR 1.73 mg/dL 0.55-1.30 Above high normal Creatinine for GFR [place] ([facility]) glomerular filtration rate >58 Below low normal Beata merular Filtration Rate ROM[place] ([facility]) anion gap 20 mEq/L 8-16 Above high normal Anion Gap [place] ([facility]) calcium level 9.5 mg/dL 8.5-10.1 Calcium Level ROM[place] ( [facility]) chloride level 95 mEq/L 98-107 Below low normal Chloride Level ROM[place] ([facility]) carbon dioxide level 17 mEq/L 21-32 Below low normal Carbon Di oxide Level [place] ([facility]) ID Date Data Source [id number] 02/17/2020 04:21:00 PM EST [place] ([facility]) Name Value Range Interpretation Code Description Data Kaye rce(s) Supporting Document(s) ALT/SGPT 18 U/L 12-78 ALT/SGPT [place] ([facility]) AST/SGOT 22 U/L 7-37 AST/SGOT [place] ([facility]) alkaline phosphatase 79 U/L 45-117 Alkaline Phosph atase ROM[place] ([facility]) bilirubin,total 1.0 mg/dL 0.2-1.0 Bilirubin,total [place] NA ([facility]) total protein 8.2 gm/dL 6.4-8.2 Total Protein [place] ( [facility]) bilirubin,direct 0.2 mg/dL 0.0-0.2 Bilirubin,direct AT TRAM ([facility]) albumin 4.3 gm/dL 3.2-5.2 Albumin [place] ([facility]) albumin/globulin ratio 1.2-2.2 Below low normal Albumin /globulin Ratio ROMAN ([facility]) ID Date Data Source [id number] 02/17/2020 04:21:00 PM EST [place] ([facility]) Name Value Range Interpretation Code Description Data Kaye rce(s) Supporting Document(s) osmolality serum 311 mOsm/kg 275-295 Above high normal Osmolality Serum [place] ([facility]) ID Date Data Source [id number] 02/17/2020 04:21:00 PM EST [place] ([facility]) Name Value Range Interpretation Code Description Data Kaye rce(s) Supporting Document(s) lipase 68 U/L 73-393 Below low normal Lipase [place] ( [facility]) ID Date Data Source [id number] 02/17/2020 04:21:00 PM EST [place] ([facility]) Name Value Range Interpretation Code Description Data Kaye rce(s) Supporting Document(s) acetone/ketone > 46.00 <2.81 Above high normal Acetone/ketone [place] ([facility]) ID Date Data Source [id number] 02/17/2020 01:36:00 PM EST [facility]) Name Value Range Interpretation Code Description Data Kaye rce(s) Supporting Document(s) sars covid-19 amplification negative negative Sars Cov id-19 Amplification [facility]) ID Date Data Source [id number] 02/17/2020 01:36:00 PM EST [facility]) Name Value Range Interpretation Code Description Data Kaye rce(s) Supporting Document(s) sars covid-19 amplification negative negative Sars Cov id-19 Amplification [facility]) ID Date Data Source [id number] 02/17/2020 01:36:00 PM EST [facility]) Name Value Range Interpretation Code Description Data Kaye rce(s) Supporting Document(s) sars covid-19 amplification negative negative Sars Cov id-19 Amplification [facility]) ID Date Data Source [id number] 02/17/2020 01:36:00 PM EST [facility]) Name Value Range Interpretation Code Description Data Kaye rce(s) Supporting Document(s) sars covid-19 amplification negative negative Sars Cov id-19 Amplification [facility]) ID Date Data Source [id number] 02/17/2020 01:36:00 PM EST [place] ([facility]) Name Value Range Interpretation Code Description Data Kaye rce(s) Supporting Document(s) sars covid-19 amplification negative negative Sars Cov id-19 Amplification [place] ([facility]) ID Date Data Source [id number] 02/17/2020 01:36:00 PM EST [place] ([facility]) Name Value Range Interpretation Code Description Data Kaye rce(s) Supporting Document(s) sars covid-19 amplification negative negative Sars Cov id-19 Amplification [place] ([facility]) ID Date Data Source [id number] 02/17/2020 01:36:00 PM EST [facility]) Name Value Range Interpretation Code Description Data Kaye rce(s) Supporting Document(s) sars covid-19 amplification negative negative Sars Cov id-19 Amplification [facility]) ID Date Data Source [id number] 02/17/2020 01:25:00 PM EST [place] ([facility]) Name Value Range Interpretation Code Description Data Kaye rce(s) Supporting Document(s) estimated average glucose 197 mg/dL 60-110 Above high norm al Estimated Average Glucose [place] ([facility]) Hemoglobin A1c/Hemoglobin.total in Blood 8.5 % Hemoglobin a1C [facility]) ID Date Data Source [id number] 02/17/2020 01:25:00 PM EST [facility]) Name Value Range Interpretation Code Description Data Kaye rce(s) Supporting Document(s) venous partial pressure O2 83.8 mmHg 30.0-50.0 Above high nor mal Venous Partial Pressure O2 [place] ([facility]) venous pH 7.371 units 7.330-7.430 Venous pH [place] ([facility]) venous partial pressure CO2 30.6 mmHg 38.0-50.0 Below low nor mal Venous Partial Pressure CO2 [place] ([facility]) venous base excess -2.0-2.0 Below low normal Venous Base Excess [place] ([facility]) venous HCO3 17.3 mEq/L 23.0-27.0 Below low normal Venous HCO3 [place] ([facility]) venous total CO2 18.3 mEq/L 24.0-28.0 Below low normal Venous Total CO2 [place] ([facility]) venous standard HCO3 18.9 mEq/L Venous Standard HCO3 [place] ([facility]) venous O2 saturation 96.0 % 60.0-80.0 Above high normal Venous O 2 Saturation [place] ([facility]) ID Date Data Source [id number] 02/17/2020 01:25:00 PM EST [place] ([facility]) Name Value Range Interpretation Code Description Data Kaye rce(s) Supporting Document(s) venous partial pressure O2 83.8 mmHg 30.0-50.0 Above high nor mal Venous Partial Pressure O2 [place] ([facility]) venous partial pressure CO2 30.6 mmHg 38.0-50.0 Below low nor mal Venous Partial Pressure CO2 [place] ([facility]) venous pH 7.371 units 7.330-7.430 Venous pH [place] ([facility]) venous total CO2 18.3 mEq/L 24.0-28.0 Below low normal Venous Total CO2 [place] ([facility]) venous HCO3 17.3 mEq/L 23.0-27.0 Below low normal Venous HCO3 [place] ([facility]) venous standard HCO3 18.9 mEq/L Venous Standard HCO3 [place] ([facility]) venous base excess -2.0-2.0 Below low normal Venous Base Excess [place] ([facility]) venous O2 saturation 96.0 % 60.0-80.0 Above high normal Venous O 2 Saturation [place] ([facility]) ID Date Data Source [id number] 02/17/2020 01:25:00 PM EST [place] ([facility]) Name Value Range Interpretation Code Description Data Kaye rce(s) Supporting Document(s) white blood count 9.6 10 4.0-10.0 White Blood Count [place] ([facility]) hematocrit 33.8 % 36.0-47.0 Below low normal Hematocrit [place] ( [facility]) hemoglobin 11.0 g/dL 12.0-15.5 Below low normal Hemoglobin [place] ( [facility]) red blood count 3.98 10 4.00-5.40 Below low normal Red Blood Coun t [place] ([facility]) mean corpuscular hemoglobin 27.6 pg 27.0-33.0 Mean Cor puscular Hemoglobin [place] ([facility]) mean corpuscular volume 84.9 fL 80.0-96.0 Mean Corpusc ular Volume [place] ([facility]) platelet count, automated 333 10 150-450 Platelet C ount, Automated [place] ([facility]) red cell distribution width 15.0 % 11.5-14.5 Above high no rmal Red Cell Distribution Width [place] ([facility]) mean corpuscular HGB conc 32.5 g/dL 32.0-36.5 Mean Corpu scular HGB Conc [place] ([facility]) lymph % 14.8 % 24.0-44.0 Below low normal Lymph % [place] ( [facility]) neutrophils % 78.2 % 36.0-66.0 Above high normal Neutrophils % A [place] ([facility]) mono % 6.1 % 0.0-5.0 Above high normal [place] % [place] ([facility]) eos % 0.1 % 0.0-3.0 Eos % [place] ([facility]) baso % 0.5 % 0.0-1.0 Baso % [place] ([facility]) nucleated red blood cell % 0.0 % 0-0 Nucleated Red Blood Cell % [place] ([facility]) immature granulocyte % 0.3 % 0-3.0 Immature Gran ulocyte % [place] ([facility]) neutrophils # 7.5 10 1.5-8.5 Neutrophils # [place] ( [facility]) lymph # 1.4 10 1.5-5.0 Below low normal Lymph # [place] ( [facility]) baso # 0.1 10 0.0-0.2 Baso # [place] ([facility]) mono # 0.6 10 0.0-0.8 [place] # [place] ([facility]) eos # 0.0 10 0.0-0.5 Eos # [place] ([facility]) ID Date Data Source [id number] 02/17/2020 01:25:00 PM EST [place] ([facility]) Name Value Range Interpretation Code Description Data Kaye rce(s) Supporting Document(s) estimated average glucose 197 mg/dL 60-110 Above high norm al Estimated Average Glucose [place] ([facility]) Hemoglobin A1c/Hemoglobin.total in Blood 8.5 % Hemoglobin a1C [place] ([facility]) ID Date Data Source [id number] 02/17/2020 01:25:00 PM EST [place] ([facility]) Name Value Range Interpretation Code Description Data Kaye rce(s) Supporting Document(s) venous pH 7.371 units 7.330-7.430 Venous pH [place] ([facility]) venous partial pressure CO2 30.6 mmHg 38.0-50.0 Below low nor mal Venous Partial Pressure CO2 [place] ([facility]) venous partial pressure O2 83.8 mmHg 30.0-50.0 Above high nor mal Venous Partial Pressure O2 [place] ([facility]) venous HCO3 17.3 mEq/L 23.0-27.0 Below low normal Venous HCO3 [place] ([facility]) venous total CO2 18.3 mEq/L 24.0-28.0 Below low normal Venous Total CO2 [place] ([facility]) venous base excess -2.0-2.0 Below low normal Venous Base Excess [place] ([facility]) venous standard HCO3 18.9 mEq/L Venous Standard HCO3 [place] ([facility]) venous O2 saturation 96.0 % 60.0-80.0 Above high normal Venous O 2 Saturation [facility]) ID Date Data Source [id number] 02/17/2020 01:25:00 PM EST [place] ([facility]) Name Value Range Interpretation Code Description Data Kaye rce(s) Supporting Document(s) venous partial pressure CO2 30.6 mmHg 38.0-50.0 Below low nor mal Venous Partial Pressure CO2 [place] ([facility]) venous pH 7.371 units 7.330-7.430 Venous pH [place] ([facility]) venous partial pressure O2 83.8 mmHg 30.0-50.0 Above high nor mal Venous Partial Pressure O2 [place] ([facility]) venous total CO2 18.3 mEq/L 24.0-28.0 Below low normal Venous Total CO2 [place] ([facility]) venous base excess -2.0-2.0 Below low normal Venous Base Excess [place] ([facility]) venous HCO3 17.3 mEq/L 23.0-27.0 Below low normal Venous HCO3 [place] ([facility]) venous standard HCO3 18.9 mEq/L Venous Standard HCO3 [place] ([facility]) venous O2 saturation 96.0 % 60.0-80.0 Above high normal Venous O 2 Saturation [place] ([facility]) ID Date Data Source [id number] 02/17/2020 01:25:00 PM EST [place] ([facility]) Name Value Range Interpretation Code Description Data Kaye rce(s) Supporting Document(s) white blood count 9.6 10 4.0-10.0 White Blood Count [place] ([facility]) red blood count 3.98 10 4.00-5.40 Below low normal Red Blood Coun t [place] ([facility]) hemoglobin 11.0 g/dL 12.0-15.5 Below low normal Hemoglobin [place] ( [facility]) hematocrit 33.8 % 36.0-47.0 Below low normal Hematocrit [place] ( [facility]) mean corpuscular volume 84.9 fL 80.0-96.0 Mean Corpusc ular Volume [place] ([facility]) mean corpuscular hemoglobin 27.6 pg 27.0-33.0 Mean Cor puscular Hemoglobin [place] ([facility]) red cell distribution width 15.0 % 11.5-14.5 Above high no rmal Red Cell Distribution Width [place] ([facility]) mean corpuscular HGB conc 32.5 g/dL 32.0-36.5 Mean Corpu scular HGB Conc [place] ([facility]) platelet count, automated 333 10 150-450 Platelet C ount, Automated [place] ([facility]) neutrophils % 78.2 % 36.0-66.0 Above high normal Neutrophils % [place] ([facility]) mono % 6.1 % 0.0-5.0 Above high normal [place] % [place] ([facility]) lymph % 14.8 % 24.0-44.0 Below low normal Lymph % [place] ( [facility]) eos % 0.1 % 0.0-3.0 Eos % [place] ([facility]) baso % 0.5 % 0.0-1.0 Baso % [place] ([facility]) immature granulocyte % 0.3 % 0-3.0 Immature Gran ulocyte % [place] ([facility]) neutrophils # 7.5 10 1.5-8.5 Neutrophils # [place] ( [facility]) nucleated red blood cell % 0.0 % 0-0 Nucleated Red Blood Cell % [place] ([facility]) lymph # 1.4 10 1.5-5.0 Below low normal Lymph # [place] ( [facility]) mono # 0.6 10 0.0-0.8 [place] # [place] ([facility]) baso # 0.1 10 0.0-0.2 Baso # [place] ([facility]) eos # 0.0 10 0.0-0.5 Eos # [place] ([facility]) ID Date Data Source [id number] 02/17/2020 01:25:00 PM EST [place] ([facility]) Name Value Range Interpretation Code Description Data Kaye rce(s) Supporting Document(s) venous pH 7.371 units 7.330-7.430 Venous pH [place] ([facility]) venous partial pressure CO2 30.6 mmHg 38.0-50.0 Below low nor mal Venous Partial Pressure CO2 [place] ([facility]) venous total CO2 18.3 mEq/L 24.0-28.0 Below low normal Venous Total CO2 [place] ([facility]) venous partial pressure O2 83.8 mmHg 30.0-50.0 Above high nor mal Venous Partial Pressure O2 [place] ([facility]) venous HCO3 17.3 mEq/L 23.0-27.0 Below low normal Venous HCO3 [place] ([facility]) venous standard HCO3 18.9 mEq/L Venous Standard HCO3 [place] ([facility]) venous base excess -2.0-2.0 Below low normal Venous Base Excess [place] ([facility]) venous O2 saturation 96.0 % 60.0-80.0 Above high normal Venous O 2 Saturation [place] ([facility]) ID Date Data Source [id number] 02/17/2020 01:25:00 PM EST [place] ([facility]) Name Value Range Interpretation Code Description Data Kaye rce(s) Supporting Document(s) venous partial pressure CO2 30.6 mmHg 38.0-50.0 Below low nor mal Venous Partial Pressure CO2 [place] ([facility]) venous pH 7.371 units 7.330-7.430 Venous pH [place] ([facility]) venous total CO2 18.3 mEq/L 24.0-28.0 Below low normal Venous Total CO2 [place] ([facility]) venous partial pressure O2 83.8 mmHg 30.0-50.0 Above high nor mal Venous Partial Pressure O2 [place] ([facility]) venous HCO3 17.3 mEq/L 23.0-27.0 Below low normal Venous HCO3 [place] ([facility]) venous standard HCO3 18.9 mEq/L Venous Standard HCO3 [place] ([facility]) venous base excess -2.0-2.0 Below low normal Venous Base Excess [place] ([facility]) venous O2 saturation 96.0 % 60.0-80.0 Above high normal Venous O 2 Saturation [place] ([facility]) ID Date Data Source [id number] 02/17/2020 01:25:00 PM EST [place] ([facility]) Name Value Range Interpretation Code Description Data Kaye rce(s) Supporting Document(s) white blood count 9.6 10 4.0-10.0 White Blood Count [place] ([facility]) hemoglobin 11.0 g/dL 12.0-15.5 Below low normal Hemoglobin [place] ( [facility]) red blood count 3.98 10 4.00-5.40 Below low normal Red Blood Coun t [place] ([facility]) hematocrit 33.8 % 36.0-47.0 Below low normal Hematocrit [place] ( [facility]) mean corpuscular hemoglobin 27.6 pg 27.0-33.0 Mean Cor puscular Hemoglobin [place] ([facility]) mean corpuscular volume 84.9 fL 80.0-96.0 Mean Corpusc ular Volume [place] ([facility]) mean corpuscular HGB conc 32.5 g/dL 32.0-36.5 Mean Corpu scular HGB Conc [place] ([facility]) red cell distribution width 15.0 % 11.5-14.5 Above high no rmal Red Cell Distribution Width [place] ([facility]) neutrophils % 78.2 % 36.0-66.0 Above high normal Neutrophils % [place] ([facility]) platelet count, automated 333 10 150-450 Platelet C ount, Automated [place] ([facility]) lymph % 14.8 % 24.0-44.0 Below low normal Lymph % [place] ( [facility]) mono % 6.1 % 0.0-5.0 Above high normal [place] % [place] ([facility]) eos % 0.1 % 0.0-3.0 Eos % [place] ([facility]) baso % 0.5 % 0.0-1.0 Baso % [place] ([facility]) immature granulocyte % 0.3 % 0-3.0 Immature Gran ulocyte % [place] ([facility]) nucleated red blood cell % 0.0 % 0-0 Nucleated Red Blood Cell % [place] ([facility]) neutrophils # 7.5 10 1.5-8.5 Neutrophils # [place] ( [facility]) mono # 0.6 10 0.0-0.8 [place] # [place] ([facility]) lymph # 1.4 10 1.5-5.0 Below low normal Lymph # [place] ( [facility]) eos # 0.0 10 0.0-0.5 Eos # [place] ([facility]) baso # 0.1 10 0.0-0.2 Baso # [place] ([facility]) ID Date Data Source [id number] 02/17/2020 01:25:00 PM EST [place] ([facility]) Name Value Range Interpretation Code Description Data Kaye rce(s) Supporting Document(s) Hemoglobin A1c/Hemoglobin.total in Blood 8.5 % Hemoglobin a1C [place] ([facility]) estimated average glucose 197 mg/dL 60-110 Above high norm al Estimated Average Glucose [place] ([facility]) ID Date Data Source [id number] 02/17/2020 01:25:00 PM EST [place] ([facility]) Name Value Range Interpretation Code Description Data Kaye rce(s) Supporting Document(s) venous pH 7.371 units 7.330-7.430 Venous pH [place] ([facility]) venous partial pressure CO2 30.6 mmHg 38.0-50.0 Below low nor mal Venous Partial Pressure CO2 [place] ([facility]) venous total CO2 18.3 mEq/L 24.0-28.0 Below low normal Venous Total CO2 [place] ([facility]) venous partial pressure O2 83.8 mmHg 30.0-50.0 Above high nor mal Venous Partial Pressure O2 [place] ([facility]) venous HCO3 17.3 mEq/L 23.0-27.0 Below low normal Venous HCO3 [place] ([facility]) venous standard HCO3 18.9 mEq/L Venous Standard HCO3 [place] ([facility]) venous base excess -2.0-2.0 Below low normal Venous Base Excess [place] ([facility]) venous O2 saturation 96.0 % 60.0-80.0 Above high normal Venous O 2 Saturation [place] ([facility]) ID Date Data Source [id number] 02/17/2020 01:25:00 PM EST [place] ([facility]) Name Value Range Interpretation Code Description Data Kaye rce(s) Supporting Document(s) venous partial pressure CO2 30.6 mmHg 38.0-50.0 Below low nor mal Venous Partial Pressure CO2 [place] ([facility]) venous pH 7.371 units 7.330-7.430 Venous pH [place] ([facility]) venous total CO2 18.3 mEq/L 24.0-28.0 Below low normal Venous Total CO2 [place] ([facility]) venous partial pressure O2 83.8 mmHg 30.0-50.0 Above high nor mal Venous Partial Pressure O2 [place] ([facility]) venous HCO3 17.3 mEq/L 23.0-27.0 Below low normal Venous HCO3 [place] ([facility]) venous standard HCO3 18.9 mEq/L Venous Standard HCO3 [place] ([facility]) venous O2 saturation 96.0 % 60.0-80.0 Above high normal Venous O 2 Saturation [place] ([facility]) venous base excess -2.0-2.0 Below low normal Venous Base Excess [place] ([facility]) ID Date Data Source [id number] 02/17/2020 01:25:00 PM EST [place] ([facility]) Name Value Range Interpretation Code Description Data Kaye rce(s) Supporting Document(s) red blood count 3.98 10 4.00-5.40 Below low normal Red Blood Coun t [place] ([facility]) white blood count 9.6 10 4.0-10.0 White Blood Count [place] ([facility]) hematocrit 33.8 % 36.0-47.0 Below low normal Hematocrit [place] ( [facility]) hemoglobin 11.0 g/dL 12.0-15.5 Below low normal Hemoglobin [place] ( [facility]) mean corpuscular volume 84.9 fL 80.0-96.0 Mean Corpusc ular Volume [place] ([facility]) mean corpuscular hemoglobin 27.6 pg 27.0-33.0 Mean Cor puscular Hemoglobin [place] ([facility]) mean corpuscular HGB conc 32.5 g/dL 32.0-36.5 Mean Corpu scular HGB Conc [place] ([facility]) red cell distribution width 15.0 % 11.5-14.5 Above high no rmal Red Cell Distribution Width [place] ([facility]) neutrophils % 78.2 % 36.0-66.0 Above high normal Neutrophils % A [place] ([facility]) platelet count, automated 333 10 150-450 Platelet C ount, Automated [place] ([facility]) lymph % 14.8 % 24.0-44.0 Below low normal Lymph % [place] ( [facility]) eos % 0.1 % 0.0-3.0 Eos % [place] ([facility]) mono % 6.1 % 0.0-5.0 Above high normal [place] % [place] ([facility]) immature granulocyte % 0.3 % 0-3.0 Immature Gran ulocyte % [place] ([facility]) baso % 0.5 % 0.0-1.0 Baso % [place] ([facility]) neutrophils # 7.5 10 1.5-8.5 Neutrophils # [place] ( [facility]) lymph # 1.4 10 1.5-5.0 Below low normal Lymph # [place] ( [facility]) nucleated red blood cell % 0.0 % 0-0 Nucleated Red Blood Cell % [place] ([facility]) mono # 0.6 10 0.0-0.8 [place] # [place] ([facility]) eos # 0.0 10 0.0-0.5 Eos # [place] ([facility]) baso # 0.1 10 0.0-0.2 Baso # [place] ([facility]) ID Date Data Source [id number] 02/17/2020 01:25:00 PM EST [place] ([facility]) Name Value Range Interpretation Code Description Data Kaye rce(s) Supporting Document(s) estimated average glucose 197 mg/dL 60-110 Above high norm al Estimated Average Glucose [place] ([facility]) Hemoglobin A1c/Hemoglobin.total in Blood 8.5 % Hemoglobin a1C [place] ([facility]) ID Date Data Source [id number] 02/17/2020 01:25:00 PM EST [place] ([facility]) Name Value Range Interpretation Code Description Data Kaye rce(s) Supporting Document(s) Hemoglobin A1c/Hemoglobin.total in Blood 8.5 % Hemoglobin a1C [place] ([facility]) estimated average glucose 197 mg/dL 60-110 Above high norm al Estimated Average Glucose [place] ([facility]) ID Date Data Source [id number] 02/17/2020 01:25:00 PM EST [place] ([facility]) Name Value Range Interpretation Code Description Data Kaye rce(s) Supporting Document(s) venous partial pressure CO2 30.6 mmHg 38.0-50.0 Below low nor mal Venous Partial Pressure CO2 [place] ([facility]) venous pH 7.371 units 7.330-7.430 Venous pH [place] ([facility]) venous HCO3 17.3 mEq/L 23.0-27.0 Below low normal Venous HCO3 [place] ([facility]) venous partial pressure O2 83.8 mmHg 30.0-50.0 Above high nor mal Venous Partial Pressure O2 [place] ([facility]) venous total CO2 18.3 mEq/L 24.0-28.0 Below low normal Venous Total CO2 [place] ([facility]) venous base excess -2.0-2.0 Below low normal Venous Base Excess [place] ([facility]) venous standard HCO3 18.9 mEq/L Venous Standard HCO3 [place] ([facility]) venous O2 saturation 96.0 % 60.0-80.0 Above high normal Venous O 2 Saturation [place] ([facility]) ID Date Data Source [id number] 02/17/2020 01:25:00 PM EST [place] ([facility]) Name Value Range Interpretation Code Description Data Kaye rce(s) Supporting Document(s) venous pH 7.371 units 7.330-7.430 Venous pH [place] ([facility]) venous partial pressure O2 83.8 mmHg 30.0-50.0 Above high nor mal Venous Partial Pressure O2 [place] ([facility]) venous partial pressure CO2 30.6 mmHg 38.0-50.0 Below low nor mal Venous Partial Pressure CO2 [place] ([facility]) venous base excess -2.0-2.0 Below low normal Venous Base Excess [place] ([facility]) venous total CO2 18.3 mEq/L 24.0-28.0 Below low normal Venous Total CO2 [place] ([facility]) venous HCO3 17.3 mEq/L 23.0-27.0 Below low normal Venous HCO3 [place] ([facility]) venous standard HCO3 18.9 mEq/L Venous Standard HCO3 [place] ([facility]) venous O2 saturation 96.0 % 60.0-80.0 Above high normal Venous O 2 Saturation [place] ([facility]) ID Date Data Source [id number] 02/17/2020 01:25:00 PM EST [place] ([facility]) Name Value Range Interpretation Code Description Data Kaye rce(s) Supporting Document(s) white blood count 9.6 10 4.0-10.0 White Blood Count [place] ([facility]) red blood count 3.98 10 4.00-5.40 Below low normal Red Blood Coun t [place] ([facility]) hemoglobin 11.0 g/dL 12.0-15.5 Below low normal Hemoglobin [place] ( [facility]) hematocrit 33.8 % 36.0-47.0 Below low normal Hematocrit [place] ( [facility]) mean corpuscular volume 84.9 fL 80.0-96.0 Mean Corpusc ular Volume [place] ([facility]) mean corpuscular hemoglobin 27.6 pg 27.0-33.0 Mean Cor puscular Hemoglobin [place] ([facility]) mean corpuscular HGB conc 32.5 g/dL 32.0-36.5 Mean Corpu scular HGB Conc [place] ([facility]) red cell distribution width 15.0 % 11.5-14.5 Above high no rmal Red Cell Distribution Width [place] ([facility]) platelet count, automated 333 10 150-450 Platelet C ount, Automated [place] ([facility]) neutrophils % 78.2 % 36.0-66.0 Above high normal Neutrophils % A [place] ([facility]) lymph % 14.8 % 24.0-44.0 Below low normal Lymph % [place] ( [facility]) mono % 6.1 % 0.0-5.0 Above high normal [place] % [place] ([facility]) eos % 0.1 % 0.0-3.0 Eos % [place] ([facility]) baso % 0.5 % 0.0-1.0 Baso % [place] ([facility]) immature granulocyte % 0.3 % 0-3.0 Immature Gran ulocyte % [place] ([facility]) nucleated red blood cell % 0.0 % 0-0 Nucleated Red Blood Cell % [place] ([facility]) neutrophils # 7.5 10 1.5-8.5 Neutrophils # [place] ( [facility]) lymph # 1.4 10 1.5-5.0 Below low normal Lymph # [place] ( [facility]) mono # 0.6 10 0.0-0.8 [place] # [place] ([facility]) eos # 0.0 10 0.0-0.5 Eos # [place] ([facility]) baso # 0.1 10 0.0-0.2 Baso # [place] ([facility]) ID Date Data Source [id number] 02/17/2020 01:25:00 PM EST [place] ([facility]) Name Value Range Interpretation Code Description Data Kaye rce(s) Supporting Document(s) estimated average glucose 197 mg/dL 60-110 Above high norm al Estimated Average Glucose [place] ([facility]) Hemoglobin A1c/Hemoglobin.total in Blood 8.5 % Hemoglobin a1C [place] ([facility]) ID Date Data Source [id number] 02/17/2020 01:25:00 PM EST [place] ([facility]) Name Value Range Interpretation Code Description Data Kaye rce(s) Supporting Document(s) venous partial pressure CO2 30.6 mmHg 38.0-50.0 Below low nor mal Venous Partial Pressure CO2 [place] ([facility]) venous pH 7.371 units 7.330-7.430 Venous pH [place] ([facility]) venous partial pressure O2 83.8 mmHg 30.0-50.0 Above high nor mal Venous Partial Pressure O2 [place] ([facility]) venous total CO2 18.3 mEq/L 24.0-28.0 Below low normal Venous Total CO2 [place] ([facility]) venous HCO3 17.3 mEq/L 23.0-27.0 Below low normal Venous HCO3 [place] ([facility]) venous base excess -2.0-2.0 Below low normal Venous Base Excess [place] ([facility]) venous standard HCO3 18.9 mEq/L Venous Standard HCO3 [place] ([facility]) venous O2 saturation 96.0 % 60.0-80.0 Above high normal Venous O 2 Saturation [place] ([facility]) ID Date Data Source [id number] 02/17/2020 01:25:00 PM EST [place] ([facility]) Name Value Range Interpretation Code Description Data Kaye rce(s) Supporting Document(s) venous partial pressure CO2 30.6 mmHg 38.0-50.0 Below low nor mal Venous Partial Pressure CO2 [place] ([facility]) venous pH 7.371 units 7.330-7.430 Venous pH [place] ([facility]) venous partial pressure O2 83.8 mmHg 30.0-50.0 Above high nor mal Venous Partial Pressure O2 [place] ([facility]) venous total CO2 18.3 mEq/L 24.0-28.0 Below low normal Venous Total CO2 [place] ([facility]) venous HCO3 17.3 mEq/L 23.0-27.0 Below low normal Venous HCO3 [place] ([facility]) venous standard HCO3 18.9 mEq/L Venous Standard HCO3 [place] ([facility]) venous base excess -2.0-2.0 Below low normal Venous Base Excess [place] ([facility]) venous O2 saturation 96.0 % 60.0-80.0 Above high normal Venous O 2 Saturation [place] ([facility]) ID Date Data Source [id number] 02/17/2020 01:25:00 PM EST [place] ([facility]) Name Value Range Interpretation Code Description Data Kaye rce(s) Supporting Document(s) white blood count 9.6 10 4.0-10.0 White Blood Count [place] ([facility]) red blood count 3.98 10 4.00-5.40 Below low normal Red Blood Coun t [place] ([facility]) hemoglobin 11.0 g/dL 12.0-15.5 Below low normal Hemoglobin [place] ( [facility]) mean corpuscular volume 84.9 fL 80.0-96.0 Mean Corpusc ular Volume [place] ([facility]) hematocrit 33.8 % 36.0-47.0 Below low normal Hematocrit [place] ( [facility]) mean corpuscular hemoglobin 27.6 pg 27.0-33.0 Mean Cor puscular Hemoglobin [place] ([facility]) red cell distribution width 15.0 % 11.5-14.5 Above high no rmal Red Cell Distribution Width [place] ([facility]) mean corpuscular HGB conc 32.5 g/dL 32.0-36.5 Mean Corpu scular HGB Conc [place] ([facility]) neutrophils % 78.2 % 36.0-66.0 Above high normal Neutrophils % [place] ([facility]) lymph % 14.8 % 24.0-44.0 Below low normal Lymph % [place] ( [facility]) platelet count, automated 333 10 150-450 Platelet C ount, Automated [place] ([facility]) baso % 0.5 % 0.0-1.0 Baso % [place] ([facility]) mono % 6.1 % 0.0-5.0 Above high normal [place] % [place] ([facility]) eos % 0.1 % 0.0-3.0 Eos % [place] ([facility]) immature granulocyte % 0.3 % 0-3.0 Immature Gran ulocyte % [place] ([facility]) nucleated red blood cell % 0.0 % 0-0 Nucleated Red Blood Cell % [place] ([facility]) lymph # 1.4 10 1.5-5.0 Below low normal Lymph # [place] ( [facility]) mono # 0.6 10 0.0-0.8 [place] # [place] ([facility]) neutrophils # 7.5 10 1.5-8.5 Neutrophils # [place] ( [facility]) eos # 0.0 10 0.0-0.5 Eos # [place] ([facility]) baso # 0.1 10 0.0-0.2 Baso # [place] ([facility]) ID Date Data Source [id number] 02/17/2020 01:25:00 PM EST [place] ([facility]) Name Value Range Interpretation Code Description Data Kaye rce(s) Supporting Document(s) Hemoglobin A1c/Hemoglobin.total in Blood 8.5 % Hemoglobin a1C [place] ([facility]) estimated average glucose 197 mg/dL 60-110 Above high norm al Estimated Average Glucose [place] ([facility]) ID Date Data Source [id number] 02/17/2020 01:25:00 PM EST [place] ([facility]) Name Value Range Interpretation Code Description Data Kaye rce(s) Supporting Document(s) venous pH 7.371 units 7.330-7.430 Venous pH [place] ([facility]) venous partial pressure CO2 30.6 mmHg 38.0-50.0 Below low nor mal Venous Partial Pressure CO2 [place] ([facility]) venous partial pressure O2 83.8 mmHg 30.0-50.0 Above high nor mal Venous Partial Pressure O2 [place] ([facility]) venous base excess -2.0-2.0 Below low normal Venous Base Excess [place] ([facility]) venous total CO2 18.3 mEq/L 24.0-28.0 Below low normal Venous Total CO2 [place] ([facility]) venous HCO3 17.3 mEq/L 23.0-27.0 Below low normal Venous HCO3 [place] ([facility]) venous O2 saturation 96.0 % 60.0-80.0 Above high normal Venous O 2 Saturation [place] ([facility]) venous standard HCO3 18.9 mEq/L Venous Standard HCO3 [place] ([facility]) ID Date Data Source [id number] 02/17/2020 01:25:00 PM EST [place] ([facility]) Name Value Range Interpretation Code Description Data Kaye rce(s) Supporting Document(s) red blood count 3.98 10 4.00-5.40 Below low normal Red Blood Coun t [place] ([facility]) hemoglobin 11.0 g/dL 12.0-15.5 Below low normal Hemoglobin [place] ( [facility]) white blood count 9.6 10 4.0-10.0 White Blood Count [place] ([facility]) mean corpuscular volume 84.9 fL 80.0-96.0 Mean Corpusc ular Volume [place] ([facility]) hematocrit 33.8 % 36.0-47.0 Below low normal Hematocrit [place] ( [facility]) red cell distribution width 15.0 % 11.5-14.5 Above high no rmal Red Cell Distribution Width [place] ([facility]) mean corpuscular hemoglobin 27.6 pg 27.0-33.0 Mean Cor puscular Hemoglobin [place] ([facility]) mean corpuscular HGB conc 32.5 g/dL 32.0-36.5 Mean Corpu scular HGB Conc [place] ([facility]) neutrophils % 78.2 % 36.0-66.0 Above high normal Neutrophils % [place] ([facility]) lymph % 14.8 % 24.0-44.0 Below low normal Lymph % [place] ( [facility]) platelet count, automated 333 10 150-450 Platelet C ount, Automated [place] ([facility]) eos % 0.1 % 0.0-3.0 Eos % [place] ([facility]) baso % 0.5 % 0.0-1.0 Baso % [place] ([facility]) mono % 6.1 % 0.0-5.0 Above high normal [place] % [place] ([facility]) immature granulocyte % 0.3 % 0-3.0 Immature Gran ulocyte % [place] ([facility]) neutrophils # 7.5 10 1.5-8.5 Neutrophils # [place] ( [facility]) nucleated red blood cell % 0.0 % 0-0 Nucleated Red Blood Cell % [place] ([facility]) eos # 0.0 10 0.0-0.5 Eos # [place] ([facility]) mono # 0.6 10 0.0-0.8 [place] # [place] ([facility]) lymph # 1.4 10 1.5-5.0 Below low normal Lymph # [place] ( [facility]) baso # 0.1 10 0.0-0.2 Baso # [place] ([facility]) ID Date Data Source [id number] 02/17/2020 01:25:00 PM EST [place] ([facility]) Name Value Range Interpretation Code Description Data Kyae rce(s) Supporting Document(s) venous pH 7.371 units 7.330-7.430 Venous pH [place] ([facility]) venous partial pressure CO2 30.6 mmHg 38.0-50.0 Below low nor mal Venous Partial Pressure CO2 [place] ([facility]) venous partial pressure O2 83.8 mmHg 30.0-50.0 Above high nor mal Venous Partial Pressure O2 [place] ([facility]) venous total CO2 18.3 mEq/L 24.0-28.0 Below low normal Venous Total CO2 [place] ([facility]) venous base excess -2.0-2.0 Below low normal Venous Base Excess [place] ([facility]) venous standard HCO3 18.9 mEq/L Venous Standard HCO3 [place] ([facility]) venous HCO3 17.3 mEq/L 23.0-27.0 Below low normal Venous HCO3 [place] ([facility]) venous O2 saturation 96.0 % 60.0-80.0 Above high normal Venous O 2 Saturation [place] ([facility]) ID Date Data Source [id number] 02/17/2020 01:22:00 PM EST [place] ([facility]) Name Value Range Interpretation Code Description Data Kaye rce(s) Supporting Document(s) istat HCT 37.0 % 38.0-51.0 Below low normal Istat HCT [place] ( [facility]) istat glucose 359 mg/dL 70-105 Above high normal Istat Glucose A [place] ([facility]) istat sodium 127 mEq/L 136-145 Below low normal Istat Sodium [place] ([facility]) istat Ca++ 3.8 mg/dL 4.5-5.3 Below low normal Istat Ca++ [place] ( [facility]) istat potassium 7.8 mEq/L 3.5-5.1 Above high normal Istat Potassi um [place] ([facility]) istat chloride 96 mEq/L 98-109 Below low normal Istat Chloride [place] ([facility]) istat BUN 70 mg/dL 8-26 Above high normal Istat BUN [place] ([facility]) istat CO2 21.0 mm/L 23.0-27.0 Below low normal Istat CO2 [place] ( [facility]) istat creatinine 1.6 mg/dL 0.6-1.3 Above high normal Istat Creati nine [place] ([facility]) ID Date Data Source [id number] 02/17/2020 01:22:00 PM EST [place] ([facility]) Name Value Range Interpretation Code Description Data Kaye rce(s) Supporting Document(s) istat HCT 37.0 % 38.0-51.0 Below low normal Istat HCT [place] ( [facility]) istat glucose 359 mg/dL 70-105 Above high normal Istat Glucose A [place] ([facility]) istat potassium 7.8 mEq/L 3.5-5.1 Above high normal Istat Potassi um [place] ([facility]) istat sodium 127 mEq/L 136-145 Below low normal Istat Sodium ATHE NA ([facility]) istat chloride 96 mEq/L 98-109 Below low normal Istat Chloride [place] ([facility]) istat Ca++ 3.8 mg/dL 4.5-5.3 Below low normal Istat Ca++ [place] ( [facility]) istat CO2 21.0 mm/L 23.0-27.0 Below low normal Istat CO2 [place] ( [facility]) istat BUN 70 mg/dL 8-26 Above high normal Istat BUN [place] ([facility]) istat creatinine 1.6 mg/dL 0.6-1.3 Above high normal Istat Creati nine [place] ([facility]) ID Date Data Source [id number] 02/17/2020 01:22:00 PM EST [place] ([facility]) Name Value Range Interpretation Code Description Data Kaye rce(s) Supporting Document(s) istat HCT 37.0 % 38.0-51.0 Below low normal Istat HCT [place] ( [facility]) istat potassium 7.8 mEq/L 3.5-5.1 Above high normal Istat Potassi um [place] ([facility]) istat sodium 127 mEq/L 136-145 Below low normal Istat Sodium ATHE [place] ([facility]) istat glucose 359 mg/dL 70-105 Above high normal Istat Glucose A [place] ([facility]) istat Ca++ 3.8 mg/dL 4.5-5.3 Below low normal Istat Ca++ [place] ( [facility]) istat chloride 96 mEq/L 98-109 Below low normal Istat Chloride [place] ([facility]) istat CO2 21.0 mm/L 23.0-27.0 Below low normal Istat CO2 [place] ( [facility]) istat creatinine 1.6 mg/dL 0.6-1.3 Above high normal Istat Creati nine [place] ([facility]) istat BUN 70 mg/dL 8-26 Above high normal Istat BUN [place] ([facility]) ID Date Data Source [id number] 02/17/2020 01:22:00 PM EST [place] ([facility]) Name Value Range Interpretation Code Description Data Kaye rce(s) Supporting Document(s) istat HCT 37.0 % 38.0-51.0 Below low normal Istat HCT [place] ( [facility]) istat sodium 127 mEq/L 136-145 Below low normal Istat Sodium ATHE NA ([facility]) istat glucose 359 mg/dL 70-105 Above high normal Istat Glucose A [place] ([facility]) istat potassium 7.8 mEq/L 3.5-5.1 Above high normal Istat Potassi um [place] ([facility]) istat Ca++ 3.8 mg/dL 4.5-5.3 Below low normal Istat Ca++ [place] ( [facility]) istat CO2 21.0 mm/L 23.0-27.0 Below low normal Istat CO2 [place] ( [facility]) istat chloride 96 mEq/L 98-109 Below low normal Istat Chloride [place] ([facility]) istat BUN 70 mg/dL 8-26 Above high normal Istat BUN [place] ([facility]) istat creatinine 1.6 mg/dL 0.6-1.3 Above high normal Istat Creati nine [place] ([facility]) ID Date Data Source [id number] 02/17/2020 01:22:00 PM EST [place] ([facility]) Name Value Range Interpretation Code Description Data Kaye rce(s) Supporting Document(s) istat HCT 37.0 % 38.0-51.0 Below low normal Istat HCT [place] ( [facility]) istat glucose 359 mg/dL 70-105 Above high normal Istat Glucose A [place] ([facility]) istat sodium 127 mEq/L 136-145 Below low normal Istat Sodium ATHE NA ([facility]) istat potassium 7.8 mEq/L 3.5-5.1 Above high normal Istat Potassi um [place] ([facility]) istat Ca++ 3.8 mg/dL 4.5-5.3 Below low normal Istat Ca++ [place] ( [facility]) istat chloride 96 mEq/L 98-109 Below low normal Istat Chloride [place] ([facility]) istat BUN 70 mg/dL 8-26 Above high normal Istat BUN [place] ([facility]) istat CO2 21.0 mm/L 23.0-27.0 Below low normal Istat CO2 [place] ( [facility]) istat creatinine 1.6 mg/dL 0.6-1.3 Above high normal Istat Creati nine [place] ([facility]) ID Date Data Source [id number] 02/17/2020 01:22:00 PM EST ROMAN ([facility]) Name Value Range Interpretation Code Description Data Kaye rce(s) Supporting Document(s) istat HCT 37.0 % 38.0-51.0 Below low normal Istat HCT ROMAN ( [facility]) istat glucose 359 mg/dL 70-105 Above high normal [facility] istat sodium 127 mEq/L 136-145 Below low normal Istat Sodium ATHE NA ([facility]) istat potassium 7.8 mEq/L 3.5-5.1 Above high normal Istat Potassi um ROMAN ([facility]) istat Ca++ 3.8 mg/dL 4.5-5.3 Below low normal Istat Ca++ ROMAN ( [facility]) istat chloride 96 mEq/L 98-109 Below low normal Istat Chloride ROMAN ([facility]) istat BUN 70 mg/dL 8-26 Above high normal Istat BUN ROMAN ([facility]) istat creatinine 1.6 mg/dL 0.6-1.3 Above high normal Istat Creati nine ROMAN ([facility]) istat CO2 21.0 mm/L 23.0-27.0 Below low normal Istat CO2 ROMAN ( [facility]) ID Date Data Source [id number] 02/17/2020 01:22:00 PM EST ROMAN ([facility]) Name Value Range Interpretation Code Description Data Kaye rce(s) Supporting Document(s) istat HCT 37.0 % 38.0-51.0 Below low normal Istat HCT ROMAN ( [facility]) istat glucose 359 mg/dL 70-105 Above high normal Istat Glucose A THENA ([facility]) istat sodium 127 mEq/L 136-145 Below low normal Istat Sodium ATHE NA ([facility]) istat Ca++ 3.8 mg/dL 4.5-5.3 Below low normal Istat Ca++ ROMAN ( [facility]) istat potassium 7.8 mEq/L 3.5-5.1 Above high normal Istat Potassi um ROMAN ([facility]) istat CO2 21.0 mm/L 23.0-27.0 Below low normal Istat CO2 ROMAN ( [facility]) istat chloride 96 mEq/L 98-109 Below low normal Istat Chloride ROMAN ([facility]) istat creatinine 1.6 mg/dL 0.6-1.3 Above high normal Istat Creati nine ROMAN ([facility]) istat BUN 70 mg/dL 8-26 Above high normal Istat BUN ROMAN ([facility]) Procedure Social History No Information Vital Signs ID Date Data Source UNK Name Value Range Interpretation Code Description Data Source(s) Diastolic blood pressure 73 mm[Hg] 73 mm[Hg] ROMAN ([facility]) Body height 67 [in_i] 67 [in_i] ROMAN ([facility]) Body mass index (BMI) [Ratio] 24.6 kg/m2 24.6 k g/m2 ROMAN ([facility]) Systolic blood pressure 107 mm[Hg] 107 mm[Hg] A [facility] ([facility]) Body weight 2518 [oz_av] 2518 [oz_av] ROMAN ([facility]) Diastolic blood pressure 73 mm[Hg] 73 mm[Hg] ROMAN ([facility]) Body height 67 [in_i] 67 [in_i] ROMAN ([facility]) Body mass index (BMI) [Ratio] 23.5 kg/m2 23.5 k g/m2 ROMAN ([facility]) Systolic blood pressure 106 mm[Hg] 106 mm[Hg] A [facility] ([facility]) Body weight 2400 [oz_av] 2400 [oz_av] ROMAN ([facility]) Diastolic blood pressure 73 mm[Hg] 73 mm[Hg] ROMAN ([facility]) Body height 67 [in_i] 67 [in_i] ROMAN ([facility]) Body mass index (BMI) [Ratio] 23.5 kg/m2 23.5 k g/m2 ROMAN ([facility]) Systolic blood pressure 106 mm[Hg] 106 mm[Hg] A [facility] ([facility]) Body weight 2400 [oz_av] 2400 [oz_av] ROMAN ([facility]) Body mass index (BMI) [Ratio] 24.9 kg/m2 24.9 k g/m2 ROMAN ([facility]) Diastolic blood pressure 85 mm[Hg] 85 mm[Hg] ROMAN ([facility]) Body height 67 [in_i] 67 [in_i] ROMAN ([facility]) Systolic blood pressure 123 mm[Hg] 123 mm[Hg] A THENA ([facility]) Body weight 2547.2 [oz_av] 2547.2 [oz_av] ATHEN A ([facility]) Diastolic blood pressure 85 mm[Hg] 85 mm[Hg] ROMAN ([facility]) Body height 67 [in_i] 67 [in_i] ROMAN ([facility]) Body mass index (BMI) [Ratio] 24.9 kg/m2 24.9 k g/m2 ROMAN ([facility]) Systolic blood pressure 123 mm[Hg] 123 mm[Hg] A THENA ([facility]) Body weight 2547.2 [oz_av] 2547.2 [oz_av] ATHEN A ([facility]) Diastolic blood pressure 85 mm[Hg] 85 mm[Hg] ROMAN ([facility]) Body height 67 [in_i] 67 [in_i] ROMAN ([facility]) Body mass index (BMI) [Ratio] 24.9 kg/m2 24.9 k g/m2 ROMAN ([facility]) Systolic blood pressure 123 mm[Hg] 123 mm[Hg] A THENA ([facility]) Body weight 2547.2 [oz_av] 2547.2 [oz_av] ATHEN A ([facility]) Body height 67 [in_i] 67 [in_i] ROMAN ([facility]) Body mass index (BMI) [Ratio] 24.6 kg/m2 24.6 k g/m2 ROMAN ([facility]) Body weight 2512 [oz_av] 2512 [oz_av] ROMAN ([facility]) Body weight 2512 [oz_av] 2512 [oz_av] ROMAN ([facility]) Body height 67 [in_i] 67 [in_i] ROMAN ([facility]) Body mass index (BMI) [Ratio] 24.6 kg/m2 24.6 k g/m2 ROMAN ([facility]) Body height 67 [in_i] 67 [in_i] ROMAN ([facility]) Body mass index (BMI) [Ratio] 24.6 kg/m2 24.6 k g/m2 ROMAN ([facility]) Body weight 2512 [oz_av] 2512 [oz_av] ROMAN ([facility]) Body height 67 [in_i] 67 [in_i] ROMAN ([facility]) Body mass index (BMI) [Ratio] 24.6 kg/m2 24.6 k g/m2 ROMAN ([facility]) Body weight 2512 [oz_av] 2512 [oz_av] ROMAN ([facility]) Diastolic blood pressure 85 mm[Hg] 85 mm[Hg] ROMAN ([facility]) Body height 67 [in_i] 67 [in_i] ROMAN ([facility]) Body mass index (BMI) [Ratio] 24.7 kg/m2 24.7 k g/m2 ROMAN ([facility]) Systolic blood pressure 123 mm[Hg] 123 mm[Hg] A THENA ([facility]) Body weight 2518.4 [oz_av] 2518.4 [oz_av] ATHEN A ([facility]) Diastolic blood pressure 85 mm[Hg] 85 mm[Hg] ROMAN ([facility]) Body height 67 [in_i] 67 [in_i] ROMAN ([facility]) Body mass index (BMI) [Ratio] 24.7 kg/m2 24.7 k g/m2 ROMAN ([facility]) Systolic blood pressure 123 mm[Hg] 123 mm[Hg] A THENA ([facility]) Body weight 2518.4 [oz_av] 2518.4 [oz_av] ATHEN A ([facility]) Diastolic blood pressure 85 mm[Hg] 85 mm[Hg] ROMAN ([facility]) Body height 67 [in_i] 67 [in_i] ROMAN ([facility]) Body mass index (BMI) [Ratio] 24.7 kg/m2 24.7 k g/m2 ROMAN ([facility]) Systolic blood pressure 123 mm[Hg] 123 mm[Hg] [facility] Body weight 2518.4 [oz_av] 2518.4 [oz_av] ATHEN A ([facility]) Diastolic blood pressure 85 mm[Hg] 85 mm[Hg] ROMAN ([facility]) Body height 67 [in_i] 67 [in_i] ROMAN ([facility]) Body mass index (BMI) [Ratio] 24.7 kg/m2 24.7 k g/m2 ROMAN ([facility]) Systolic blood pressure 123 mm[Hg] 123 mm[Hg] A [facility] ([facility]) Body weight 2518.4 [oz_av] 2518.4 [oz_av] ATHEN A ([facility]) Diastolic blood pressure 85 mm[Hg] 85 mm[Hg] ROMAN ([facility]) Body height 67 [in_i] 67 [in_i] ROMAN ([facility]) Body mass index (BMI) [Ratio] 24.7 kg/m2 24.7 k g/m2 ROMAN ([facility]) Systolic blood pressure 123 mm[Hg] 123 mm[Hg] A [facility] ([facility]) Body weight 2518.4 [oz_av] 2518.4 [oz_av] ATHEN A ([facility]) Body mass index (BMI) [Ratio] 24.1 kg/m2 24.1 k g/m2 ROMAN ([facility]) Diastolic blood pressure 74 mm[Hg] 74 mm[Hg] ROMAN ([facility]) Systolic blood pressure 104 mm[Hg] 104 mm[Hg] A [facility] ([facility]) Body height 67 [in_i] 67 [in_i] ROMAN ([facility]) Body weight 2464 [oz_av] 2464 [oz_av] ROMAN ([facility]) Diastolic blood pressure 74 mm[Hg] 74 mm[Hg] ROMAN ([facility]) Body height 67 [in_i] 67 [in_i] ROMAN ([facility]) Body mass index (BMI) [Ratio] 24.1 kg/m2 24.1 k g/m2 ROMAN ([facility]) Systolic blood pressure 104 mm[Hg] 104 mm[Hg] A THENA ([facility]) Body weight 2464 [oz_av] 2464 [oz_av] ROMAN ([facility]) Diastolic blood pressure 74 mm[Hg] 74 mm[Hg] ROMAN ([facility]) Body height 67 [in_i] 67 [in_i] ROMAN ([facility]) Body mass index (BMI) [Ratio] 24.1 kg/m2 24.1 k g/m2 ROMAN ([facility]) Systolic blood pressure 104 mm[Hg] 104 mm[Hg] [facility] Body weight 2464 [oz_av] 2464 [oz_av] ROMAN ([facility]) Diastolic blood pressure 74 mm[Hg] 74 mm[Hg] ROMAN ([facility]) Body height 67 [in_i] 67 [in_i] ROMAN ([facility]) Body mass index (BMI) [Ratio] 24.1 kg/m2 24.1 k g/m2 ROMAN ([facility]) Systolic blood pressure 104 mm[Hg] 104 mm[Hg] A THENA ([facility]) Body weight 2464 [oz_av] 2464 [oz_av] ROMAN ([facility]) Diastolic blood pressure 74 mm[Hg] 74 mm[Hg] ROMAN ([facility]) Body height 67 [in_i] 67 [in_i] ROMAN ([facility]) Body mass index (BMI) [Ratio] 24.1 kg/m2 24.1 k g/m2 ROMAN ([facility]) Systolic blood pressure 104 mm[Hg] 104 mm[Hg] A THENA ([facility]) Body weight 2464 [oz_av] 2464 [oz_av] ROMAN ([facility]) Body height 67 [in_i] 67 [in_i] ROMAN ([facility]) Body mass index (BMI) [Ratio] 24.1 kg/m2 24.1 k g/m2 ROMAN ([facility]) Systolic blood pressure 104 mm[Hg] 104 mm[Hg] [facility]) Body weight 2464 [oz_av] 2464 [oz_av] ROMAN ([facility]) Diastolic blood pressure 74 mm[Hg] 74 mm[Hg] ROMAN ([facility]) Systolic blood pressure 114 mm[Hg] 114 mm[Hg] [facility]) Body weight 2680 [oz_av] 2680 [oz_av] ROMAN ([facility]) Body mass index (BMI) [Ratio] 26.2 kg/m2 26.2 k g/m2 ROMAN ([facility]) Diastolic blood pressure 77 mm[Hg] 77 mm[Hg] ROMAN ([facility]) Body height 67 [in_i] 67 [in_i] ROMAN ([facility]) Diastolic blood pressure 77 mm[Hg] 77 mm[Hg] ROMAN ([facility]) Body height 67 [in_i] 67 [in_i] ROMAN ([facility]) Body mass index (BMI) [Ratio] 26.2 kg/m2 26.2 k g/m2 ROMAN ([facility]) Systolic blood pressure 114 mm[Hg] 114 mm[Hg] [facility]) Body weight 2680 [oz_av] 2680 [oz_av] ROMAN ([facility]) Diastolic blood pressure 77 mm[Hg] 77 mm[Hg] ROMAN ([facility]) Body height 67 [in_i] 67 [in_i] ROMAN ([facility]) Body mass index (BMI) [Ratio] 26.2 kg/m2 26.2 k g/m2 ROMAN ([facility]) Systolic blood pressure 114 mm[Hg] 114 mm[Hg] [facility]) Body weight 2680 [oz_av] 2680 [oz_av] ROMAN ([facility]) Diastolic blood pressure 77 mm[Hg] 77 mm[Hg] ROMAN ([facility]) Body height 67 [in_i] 67 [in_i] ROMAN ([facility]) Body mass index (BMI) [Ratio] 26.2 kg/m2 26.2 k g/m2 ROMAN ([facility]) Systolic blood pressure 114 mm[Hg] 114 mm[Hg] A THENA ([facility]) Body weight 2680 [oz_av] 2680 [oz_av] ROMAN ([facility]) Diastolic blood pressure 77 mm[Hg] 77 mm[Hg] ROMAN ([facility]) Body height 67 [in_i] 67 [in_i] ROMAN ([facility]) Body mass index (BMI) [Ratio] 26.2 kg/m2 26.2 k g/m2 ROMAN ([facility]) Systolic blood pressure 114 mm[Hg] 114 mm[Hg] A [facility] ([facility]) Body weight 2680 [oz_av] 2680 [oz_av] ROMAN ([facility]) Diastolic blood pressure 77 mm[Hg] 77 mm[Hg] ROMAN ([facility]) Body height 67 [in_i] 67 [in_i] ROMAN ([facility]) Body mass index (BMI) [Ratio] 26.2 kg/m2 26.2 k g/m2 ROMAN ([facility]) Systolic blood pressure 114 mm[Hg] 114 mm[Hg] [facility] Body weight 2680 [oz_av] 2680 [oz_av] ROMAN ([facility]) Diastolic blood pressure 77 mm[Hg] 77 mm[Hg] ROMAN ([facility]) Body height 67 [in_i] 67 [in_i] ROMAN ([facility]) Body mass index (BMI) [Ratio] 26.2 kg/m2 26.2 k g/m2 ROMAN ([facility]) Systolic blood pressure 114 mm[Hg] 114 mm[Hg] [facility] Body weight 2680 [oz_av] 2680 [oz_av] ROMAN ([facility]) Patient Treatment Plan of Care Planned Activity Planned Date Details Description Data Source (s) tramadol hydrochloride 50 MG Oral Tablet ROMAN ([facility]) Prochlorperazine 25 MG Rectal Suppository ROMAN ([facility]) Penicillin V Potassium 500 MG Oral Tablet ROMAN ([facility]) pantoprazole 40 MG Delayed Release Oral Tablet ROMAN ([facility]) 8 HR Acetaminophen 650 MG Extended Release Oral Tablet ROMAN ([facility]) Oxycodone Hydrochloride 5 MG Oral Tablet ROMAN ([facility]) OneTouch Verio Flex Meter USE DIRECTED TO TEST BLOOD SUGAR ROMAN ([facility]) OneTouch Delica Plus Lancet 33 gauge ROMAN ([facility]) Ondansetron 4 MG Oral Tablet ROMAN ([facility]) Ondansetron 4 MG Disintegrating Oral Tablet ROMAN ([facility]) Omeprazole 20 MG Delayed Release Oral Capsule ROMAN ([facility]) insulin human, isophane 70 UNT/ML / Regu lar Insulin, Human 30 UNT/ML Injectable Suspension [Novolin] ROMAN ([facility]) multivitamin Take one daily ROMAN ([facility]) Metoclopramide 5 MG Oral Tablet ROMAN ([facility]) Metoclopramide 10 MG Oral Tablet ROMAN ([facility]) Levemir FlexTouch U-100 Insuln Pen; give 5 units daily ROMAN ([facility]) Regular Insulin, Human 100 UNT/ML Injectable Solution [Humulin R] ROMAN ([facility]) Docusate Sodium 100 MG Oral Capsule ROMAN ([facility]) Sucralfate 1000 MG Oral Tablet [Carafate] ROMAN ([facility]) BD Ultra-Fine Short Pen Needle 31 gauge x 5/16" USE DIRECTED WITH BASAGLAR ONCE DAILY AT BEDTIME ROMAN ([facility]) BD Ultra-Fine Sonya Pen Needle 32 gauge x 5/32" USE UNDER THE SKIN DAILY DIRECTED ROMAN ([facility]) BD Insulin Syringe Ultra-Fine 1 mL 31 gauge x 5/16" USE DIRECTED ROMAN ([facility]) BD Insulin Syringe Ultra-Fine 0.5 mL 31 gauge x 5/16" USE WITH INSULIN MEALS AND AT BEDTIME ROMAN ([facility]) Basaglar KwikPen U-100 Insulin Take 5 units SC daily ROMAN ([facility]) Amoxicillin 875 MG / Clavulanate 125 MG Oral Tablet ROMAN ([facility]) Amoxicillin 875 MG Oral Tablet ROMAN ([facility]) Amitriptyline Hydrochloride 10 MG Oral Tablet ROMAN ([facility]) Isopropyl Alcohol 0.7 ML/ML Medicated Pad ROMAN ([facility]) Acetaminophen 650 MG Oral Tablet ROMAN ([facility]) tramadol hydrochloride 50 MG Oral Tablet ROMAN ([facility]) Prochlorperazine 25 MG Rectal Suppository ROMAN ([facility]) Penicillin V Potassium 500 MG Oral Tablet ROMAN ([facility]) 8 HR Acetaminophen 650 MG Extended Release Oral Tablet ROMAN ([facility]) Oxycodone Hydrochloride 5 MG Oral Tablet ROMAN ([facility]) Ondansetron 4 MG Oral Tablet ROMAN ([facility]) Ondansetron 4 MG Disintegrating Oral Tablet ROMAN ([facility]) Omeprazole 20 MG Delayed Release Oral Capsule ROMAN ([facility]) insulin human, isophane 70 UNT/ML / Regu lar Insulin, Human 30 UNT/ML Injectable Suspension [Novolin] ROMAN ([facility]) Metoclopramide 5 MG Oral Tablet ROMAN ([facility]) Levemir FlexTouch U-100 Insuln Pen; give 5 units daily ROMAN ([facility]) Regular Insulin, Human 100 UNT/ML Injectable Solution [Humulin R] ROMAN ([facility]) Sucralfate 1000 MG Oral Tablet [Carafate] ROMAN ([facility]) Basaglar KwikPen U-100 Insulin 100 unit/mL (3 mL) subcutaneous ROMAN ([facility]) Amoxicillin 875 MG / Clavulanate 125 MG Oral Tablet ROMAN ([facility]) Amoxicillin 875 MG Oral Tablet ROMAN ([facility]) Amitriptyline Hydrochloride 10 MG Oral Tablet ROMAN ([facility]) Acetaminophen 650 MG Oral Tablet ROMAN ([facility]) tramadol hydrochloride 50 MG Oral Tablet ROMAN ([facility]) Prochlorperazine 25 MG Rectal Suppository ROMAN ([facility]) Penicillin V Potassium 500 MG Oral Tablet ROMAN ([facility]) pantoprazole 40 MG Delayed Release Oral Tablet ROMAN ([facility]) 8 HR Acetaminophen 650 MG Extended Release Oral Tablet ROMAN ([facility]) Oxycodone Hydrochloride 5 MG Oral Tablet ROMAN ([facility]) Ondansetron 4 MG Oral Tablet ROMAN ([facility]) Ondansetron 4 MG Disintegrating Oral Tablet ROMAN ([facility]) Omeprazole 20 MG Delayed Release Oral Capsule ROMAN ([facility]) Metoclopramide 5 MG Oral Tablet ORMAN ([facility]) Metoclopramide 10 MG Oral Tablet ROMAN ([facility]) Regular Insulin, Human 100 UNT/ML Injectable Solution [Humulin R] ROMAN ([facility]) Sucralfate 1000 MG Oral Tablet [Carafate] ROMAN ([facility]) Basaglar KwikPen U-100 Insulin 100 unit/mL (3 mL) subcutaneous ROMAN ([facility]) Basaglar KwikPen U-100 Insulin 10 units sc QHS ROMAN ([facility]) Amoxicillin 875 MG / Clavulanate 125 MG Oral Tablet ROMAN ([facility]) Amoxicillin 875 MG Oral Tablet ROMAN ([facility]) Acetaminophen 650 MG Oral Tablet ROMAN ([facility]) tramadol hydrochloride 50 MG Oral Tablet ROMAN ([facility]) Prochlorperazine 25 MG Rectal Suppository ROMAN ([facility]) Penicillin V Potassium 500 MG Oral Tablet ROMAN ([facility]) pantoprazole 40 MG Delayed Release Oral Tablet ROMAN ([facility]) 8 HR Acetaminophen 650 MG Extended Release Oral Tablet ROMAN ([facility]) Oxycodone Hydrochloride 5 MG Oral Tablet ROMAN ([facility]) Ondansetron 4 MG Oral Tablet ROMAN ([facility]) Ondansetron 4 MG Disintegrating Oral Tablet ROMAN ([facility]) Omeprazole 20 MG Delayed Release Oral Capsule ROMAN ([facility]) Metoclopramide 5 MG Oral Tablet ROMAN ([facility]) Metoclopramide 10 MG Oral Tablet ROMAN ([facility]) Sucralfate 1000 MG Oral Tablet [Carafate] ROMAN ([facility]) Basaglar KwikPen U-100 Insulin 100 unit/mL (3 mL) subcutaneous ROMAN ([facility]) Basaglar KwikPen U-100 Insulin 10 units sc QHS ROMAN ([facility]) Amoxicillin 875 MG / Clavulanate 125 MG Oral Tablet ROMAN ([facility]) Amoxicillin 875 MG Oral Tablet ROMAN ([facility]) Acetaminophen 650 MG Oral Tablet ROMAN ([facility]) tramadol hydrochloride 50 MG Oral Tablet ROMAN ([facility]) pantoprazole 40 MG Delayed Release Oral Tablet [Protonix] ROMAN ([facility]) Prochlorperazine 25 MG Rectal Suppository ROMAN ([facility]) Penicillin V Potassium 500 MG Oral Tablet RMOAN ([facility]) 8 HR Acetaminophen 650 MG Extended Release Oral Tablet ROMAN ([facility]) Oxycodone Hydrochloride 5 MG Oral Tablet ROMAN ([facility]) Ondansetron 4 MG Oral Tablet ROMAN ([facility]) Ondansetron 4 MG Disintegrating Oral Tablet ROMAN ([facility]) Omeprazole 20 MG Delayed Release Oral Capsule ROMAN ([facility]) Metoclopramide 5 MG Oral Tablet ROMAN ([facility]) Metoclopramide 10 MG Oral Tablet ROMAN ([facility]) Sucralfate 1000 MG Oral Tablet [Carafate] ROMAN ([facility]) Basaglar KwikPen U-100 Insulin 100 unit/mL (3 mL) subcutaneous ROMAN ([facility]) Basaglar KwikPen U-100 Insulin 10 units sc QHS ROMAN ([facility]) Amoxicillin 875 MG Oral Tablet ROMAN ([facility]) Acetaminophen 650 MG Oral Tablet ROMAN ([facility]) Prochlorperazine 25 MG Rectal Suppository [facility] [facility] Penicillin V Potassium 500 MG Oral Tablet ROMAN ([facility]) Oxycodone Hydrochloride 5 MG Oral Tablet ROMAN ([facility]) Ondansetron 4 MG Oral Tablet ROMAN ([facility]) Ondansetron 4 MG Disintegrating Oral Tablet ROMAN ([facility]) Omeprazole 20 MG Delayed Release Oral Capsule ROMAN ([facility]) Cristianotriravindra BlankElan U-100 Insulin 100 unit/mL (3 mL) subcutaneous ROMAN ([facility]) Amoxicillin 875 MG Oral Tablet ROMAN ([facility]) Prochlorperazine 25 MG Rectal Suppository ROMAN ([facility]) Penicillin V Potassium 500 MG Oral Tablet ROMAN ([facility]) Oxycodone Hydrochloride 5 MG Oral Tablet ROMAN ([facility]) Ondansetron 4 MG Oral Tablet ROMAN ([facility]) Omeprazole 20 MG Delayed Release Oral Capsule ROMAN ([facility]) Metoclopramide 5 MG Oral Tablet ROMAN ([facility]) Metoclopramide 10 MG Oral Tablet ROMAN ([facility])
--- NOTE | 2021-02-14 15:40 | HPEPDOC ---
[facility] Medical History & Physical Date of Admission Feb 14, 2021 Date of Service: Feb 14, 2021 Attending Physician: VALDO DODGE DO History and Physical CHIEF COMPLAINT: Nausea and vomiting HISTORY OF PRESENT ILLNESS: Patient is a 50-year-old female presented to the emergency department with nausea and vomiting for the past 4 days. Patient states she woke up Thursday not feeling well. Patient states that since this is not been eating very much. Patient has been having some vomiting over the past 3 days but no vomiting today. Patient still feels nauseous. Patient has been trying to drink and take some of her medications but finally came into emergency department today as she could not take it anymore. Patient reports that her vomit has been liquid and denies any blood in the vomit. Patient denies having any diarrhea and says her abdomen does not hurt but just feels off. Patient has extensive history of diabetic ketoacidosis and when she presented to the emergency department today, she was in diabetic ketoacidosis with a beta hydroxybutyrate greater than 46 and anion gap of 17. Emergency department called hospitalist for admission. PAST MEDICAL HISTORY: 1. Type 1 diabetes mellitus. 2. Gastroparesis. 3. COPD. 4. CKD stage III PAST SURGICAL HISTORY: 1. D&C. SOCIAL HISTORY: Denies smoking cigarettes, quit in 2019. Denies drinking alcohol occasionally smoke marijuana and smoked marijuana most recently 2 weeks ago FAMILY HISTORY: Mother has heart disease and diabetes. Father is healthy. ALLERGIES: Please see below. REVIEW OF SYSTEMS: General: Patient denies fevers HEENT: Patient denies headaches Cardiovascular: Patient denies chest pain Respiratory: Patient denies shortness of breath, cough GI: Patient reports nausea and vomiting as above. Patient denies abdominal pain and diarrhea as above : Patient denies increased frequency or pain with urination Extremities: Patient denies swelling or pain in extremities Neurological: Patient denies numbness or tingling in legs Skin: Patient denies any new rashes or lesions. Hematologic: Patient denies any easy bruising. Lymphatic: Patient denies any lumps lumps or bumps in neck, axilla, or groin HOME MEDICATIONS: Please see below. PHYSICAL EXAMINATION: VITAL SIGNS: Temperature 96.8, pulse 83, respiratory rate 18, blood pressure 121/73, pulse oximetry 98% on room air. General: Alert and oriented female patient who was laying in bed when I walked in. Patient not appear to be in any acute distress HEENT: Normocephalic, atraumatic, moist mucous membranes. Neck: No lymphadenopathy or thyromegaly Cardiac: Regular rate and rhythm, no murmurs, normal S1, normal S2 Pulm: Clear to auscultation bilaterally. No wheezes, rhonchi, rales Abd: Nondistended, nontender to palpation, normal bowel sounds Ext: No edema bilateral lower extremities Neuro: Patient was able to move all 4 extremities on command and reported equal sensation light touch in all 4 extremities. Skin: Skin of the head, neck, upper and lower extremities was examined did not show any evidence of rash or wounds. LABORATORY DATA: See below. IMAGING: Chest x-ray performed on 02/14/2021 was reported to show there is no acute cardiopulmonary disease. MICROBIOLOGY: Please see below. ASSESSMENT: 50-year-old female presented to the hospital with nausea vomiting and was found to have diabetic ketoacidosis.. . PLAN: 1. Diabetic ketoacidosis. Patient will be placed on insulin drip. Patient has received IV bolus of insulin. We will monitor the patient's sugars every hour and start with base metabolic profiles every 2 hours. Patient will continue with IV fluids with 20 mEq of potassium in the fluids at 250/h. Once the patient's sugar drops below 200, D5 will be added to the IV fluids. Once the patient's anion gap within normal range and the patient's bicarb continues to remain in the normal range, patient may transition to subcutaneous insulin. 2. Acute kidney injury. Patient's creatinine is of elevated above baseline. This is most likely secondary to dehydration secondary to DKA. We will reassess with frequent basic metabolic profiles. 3. Type 1 diabetes mellitus. Once the patient's DKA is resolved, we will continue patient's on medications. 4. COPD. Patient does not appear in exacerbation today. DVT prophylaxis: Heparin CODE STATUS: Full code Disposition: Patient will be admitted to the intensive care unit for insulin drip. Patient will be discharged most likely greater than equal to 2 midnight stay Vital Signs Vital Signs Date Time Temp Pulse Resp B/P (MAP) Pulse Ox O2 Delivery O2 Flow Rate FiO2 02/14/21 13:50 83 18 121/73 (89) 98 02/14/21 11:26 96.8 Room Air Laboratory Data Labs 24H Laboratory Tests 2 02/14/21 11:35: Bedside Glucose (Misc Panel) 248H 02/14/21 12:58: Immature Granulocyte % (Auto) 0.4, Neutrophils (%) (Auto) 77.5H, Lymphocytes (%) (Auto) 14.2L, Monocytes (%) (Auto) 7.3, Eosinophils (%) (Auto) 0.1, Basophils (%) (Auto) 0.5, Neutrophils # (Auto) 5.7, Lymphocytes # (Auto) 1.1L, Monocytes # (Auto) 0.5, Eosinophils # (Auto) 0.0, Basophils # (Auto) 0.0, Nucleated Red Blood Cells % (auto) 0.0, Anion Gap 17H, Glomerular Filtration Rate 42.5L, Lactic Acid Level 1.0, Calcium Level 9.6, Total Bilirubin 1.3H, Direct Bilirubin 0.4H, Aspartate Amino Transf (AST/SGOT) 36, Alanine Aminotransferase (ALT/SGPT) 35H, Alkaline Phosphatase 88, Total Creatine Kinase 94, Creatine Kinase MB < 1.0, Creatine Kinase MB Relative Index 1.06, Troponin I < 0.02, Total Protein 7.6, Albumin 4.1, Albumin/Globulin Ratio 1.2, Lipase 65L, Thyroid Stimulating Hormone (TSH) 0.409, Human Chorionic Gonadotropin, Qual NEGATIVE, Ethyl Alcohol Level < 0.003, B-Hydroxybutyrate > 46.00H 02/14/21 13:13: Blood Gas Bicarbonate Standard 21.5, Venous Blood pH 7.390, Venous Blood Partial Pressure CO2 35.1L, Venous Blood Partial Pressure O2 70.0H, Venous Blood Total Carbon Dioxide 21.8L, Venous Blood HCO3 20.8L, Venous Blood Oxygen Saturation 93.1H, Venous Blood Base Excess -3.5L 02/14/21 14:00: Bedside Glucose (Misc Panel) 302H 02/14/21 15:12: Bedside Glucose (Misc Panel) 267H CBC/BMP Laboratory Tests 02/14/21 12:58 Microbiology Microbiology 02/14/21 Blood Culture, Received Pending 02/14/21 Blood Culture, Received Pending Home Medications Scheduled Amitriptyline HCl (Amitriptyline HCl) 10 Mg Tablet, 20 MG PO QHS Insulin Aspart (Novolog Flexpen) 100 Unit/1 Ml Insuln.pen, 1 UNITS SC ACHS Insulin Glargine,Hum.rec.anlog (Basaglar Kwikpen U-100) 100 Unit/1 Ml Insuln.pen, 5 UNIT SC DAILY Metoclopramide HCl (Reglan) 10 Mg Tablet, 1 TAB PO TIDP before food and bedtime Pantoprazole Sodium (Pantoprazole Sodium) 40 Mg Tablet.dr, 1 TAB PO DAILY Scheduled PRN Docusate Sodium (Dok) 100 Mg Capsule, 200 MG PO DAILYPRN PRN for CONSTIPATION Allergies Coded Allergies: No Known Allergies (Verified , 11/30/19) A-FIB/CHADSVASC A-FIB History Current/History of A-Fib/PAF?: No VALDO DODGE DO Feb 14, 2021 15:40
[2021-02-14 16:50] LABS: VENOUS BASE EXCESS -8.3 (-2.0-2.0); VENOUS HCO3 17.5 MEQ/L (23.0-27.0); VENOUS O2 SATURATION 80.3 % (60.0-80.0); VENOUS PARTIAL PRESSURE CO2 37.1 mmHg (38.0-50.0); VENOUS PARTIAL PRESSURE O2 50.1 mmHg (30.0-50.0); VENOUS PH 7.291 UNITS (7.330-7.430); VENOUS STANDARD HCO3 17.4 MEQ/L; VENOUS TOTAL CO2 18.6 MEQ/L (24.0-28.0)
[2021-02-14 17:02] LABS: RSV AMPLIFICATION NEGATIVE (NEGATIVE)
[2021-02-14 17:04] LABS: CALCIUM LEVEL 8.3 MG/DL (8.5-10.1); CREATININE FOR GFR 1.49 MG/DL (0.55-1.30); GLOMERULAR FILTRATION RATE 48.2 (>58); PHOSPHORUS LEVEL 2.8 MG/DL (2.5-4.9); POTASSIUM SERUM 3.7 MEQ/L (3.5-5.1)
[2021-02-14 18:43] LABS: VENOUS BASE EXCESS -3.4 (-2.0-2.0); VENOUS HCO3 21.4 MEQ/L (23.0-27.0); VENOUS O2 SATURATION 98.1 % (60.0-80.0); VENOUS PARTIAL PRESSURE CO2 37.7 mmHg (38.0-50.0); VENOUS PH 7.372 UNITS (7.330-7.430); VENOUS STANDARD HCO3 21.7 MEQ/L; VENOUS TOTAL CO2 22.6 MEQ/L (24.0-28.0)
[2021-02-14 18:54] LABS: CALCIUM LEVEL 8.6 MG/DL (8.5-10.1); CREATININE FOR GFR 1.52 MG/DL (0.55-1.30); GLOMERULAR FILTRATION RATE 47.1 (>58); PHOSPHORUS LEVEL 2.4 MG/DL (2.5-4.9); POTASSIUM SERUM 3.6 MEQ/L (3.5-5.1)
[2021-02-14] MEDS ORDERED: KCL 20MEQ in NS 1000ML 1,000 ML IV SCH (19:00)
[2021-02-14] MEDS: KCL 20MEQ IN D5/NS 1000ML 1,000 ML IV SCH (20:01)
[2021-02-14 21:30] VITALS: BP 125/80
[2021-02-14 22:00] VITALS: BP 108/67
[2021-02-14 23:00] VITALS: BP 107/76
[2021-02-14 23:04] LABS: VENOUS BASE EXCESS 0.4 (-2.0-2.0); VENOUS HCO3 25.8 MEQ/L (23.0-27.0); VENOUS O2 SATURATION 86.3 % (60.0-80.0); VENOUS PARTIAL PRESSURE O2 54.8 mmHg (30.0-50.0); VENOUS PH 7.377 UNITS (7.330-7.430); VENOUS STANDARD HCO3 24.7 MEQ/L; VENOUS TOTAL CO2 27.2 MEQ/L (24.0-28.0)
[2021-02-14 23:47] LABS: CALCIUM LEVEL 8.4 MG/DL (8.5-10.1); CREATININE FOR GFR 1.42 MG/DL (0.55-1.30); GLOMERULAR FILTRATION RATE 50.9 (>58); PHOSPHORUS LEVEL 2.4 MG/DL (2.5-4.9); POTASSIUM SERUM 4.1 MEQ/L (3.5-5.1)
[2021-02-15] VITALS (9 sets, daily range): BP systolic 103–134; BP diastolic 57–81
[2021-02-15] MEDS: KCL 20MEQ IN D5/NS 1000ML 1,000 ML IV SCH ×2 (00:15→04:00)
[2021-02-15] MEDS ORDERED: GLUCAGON INJ 1MG VIAL SC PRN (01:50)
[2021-02-15] MEDS ORDERED: DEXTROSE 50% 50 ML SYRINGE IV PRN (01:50)
[2021-02-15] MEDS ORDERED: GLUCOSE 4GM CHEW TABLET PO PRN (01:50)
[2021-02-15] MEDS: LEVEMIR (INSULIN DETEMIR) 1 UNITS/0.01ML SC SCH ×2 (02:50→08:53)
[2021-02-15 03:04] LABS: VENOUS BASE EXCESS -0.7 (-2.0-2.0); VENOUS HCO3 25.1 MEQ/L (23.0-27.0); VENOUS O2 SATURATION 78.6 % (60.0-80.0); VENOUS PARTIAL PRESSURE CO2 45.8 mmHg (38.0-50.0); VENOUS PARTIAL PRESSURE O2 43.9 mmHg (30.0-50.0); VENOUS PH 7.356 UNITS (7.330-7.430); VENOUS STANDARD HCO3 23.6 MEQ/L; VENOUS TOTAL CO2 26.5 MEQ/L (24.0-28.0)
[2021-02-15 03:40] LABS: BLOOD UREA NITROGEN 29 MG/DL (7-18); CALCIUM LEVEL 8.4 MG/DL (8.5-10.1); CARBON DIOXIDE LEVEL 27 MEQ/L (21-32); CHLORIDE LEVEL 107 MEQ/L (98-107); CREATININE FOR GFR 1.22 MG/DL (0.55-1.30); GLOMERULAR FILTRATION RATE > 60.0 (>58); GLUCOSE, FASTING 105 MG/DL (70-100); SODIUM LEVEL 142 MEQ/L (136-145)
[2021-02-15 03:41] LABS: PHOSPHORUS LEVEL 1.7 MG/DL (2.5-4.9)
[2021-02-15 03:42] LABS: OSMOLALITY SERUM 296 MOSM/KG (275-295)
[2021-02-15] MEDS ORDERED: ADME100I SC (05:14)
[2021-02-15] MEDS ORDERED: DOK1CAP4 PO (05:14)
[2021-02-15] MEDS ORDERED: SM HTAB3 PO (05:14)
[2021-02-15] MEDS ORDERED: LEVE1INJ5 SC (05:14)
[2021-02-15] MEDS ORDERED: HOME MED LIST COMPLETE! XX SCH (05:15)
[2021-02-15 05:26] LABS: VENOUS BASE EXCESS -2.6 (-2.0-2.0); VENOUS HCO3 22.8 MEQ/L (23.0-27.0); VENOUS O2 SATURATION 89.6 % (60.0-80.0); VENOUS PARTIAL PRESSURE CO2 41.5 mmHg (38.0-50.0); VENOUS PARTIAL PRESSURE O2 60.5 mmHg (30.0-50.0); VENOUS PH 7.357 UNITS (7.330-7.430); VENOUS STANDARD HCO3 22.2 MEQ/L
[2021-02-15 05:52] LABS: OSMOLALITY SERUM 291 MOSM/KG (275-295)
[2021-02-15 05:55] LABS: BLOOD UREA NITROGEN 30 MG/DL (7-18); CALCIUM LEVEL 8.5 MG/DL (8.5-10.1); CARBON DIOXIDE LEVEL 23 MEQ/L (21-32); CHLORIDE LEVEL 106 MEQ/L (98-107); CREATININE FOR GFR 1.23 MG/DL (0.55-1.30); GLOMERULAR FILTRATION RATE > 60.0 (>58); GLUCOSE, FASTING 139 MG/DL (70-100); PHOSPHORUS LEVEL 1.9 MG/DL (2.5-4.9); POTASSIUM SERUM 4.3 MEQ/L (3.5-5.1); SODIUM LEVEL 137 MEQ/L (136-145)
[2021-02-15] MEDS: HumaLOG INSULIN (NovoLOG) PER UNIT SC SCH ×2 (07:30→12:00)
--- NOTE | 2021-02-15 07:47 | ECGEPIP ---
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
[2021-02-15] MEDS ORDERED: LEVEMIR (INSULIN DETEMIR) 1 UNITS/0.01ML SC SCH (09:00)
[2021-02-15] MEDS ORDERED: HEPARIN SOD (PORCINE) 5000UNITS/ML 1ML VIAL/SYRINGE SC SCH (09:00)
[2021-02-15 10:54] LABS: BLOOD UREA NITROGEN 26 MG/DL (7-18); CALCIUM LEVEL 8.8 MG/DL (8.5-10.1); CARBON DIOXIDE LEVEL 28 MEQ/L (21-32); CHLORIDE LEVEL 106 MEQ/L (98-107); CREATININE FOR GFR 1.17 MG/DL (0.55-1.30); GLOMERULAR FILTRATION RATE > 60.0 (>58); GLUCOSE, FASTING 81 MG/DL (70-100); PHOSPHORUS LEVEL 1.8 MG/DL (2.5-4.9); SODIUM LEVEL 139 MEQ/L (136-145)
[2021-02-15] MEDS ORDERED: K-PHOS NEUTRAL 250MG TABLET (SOD.PHOSPHATE/POT.PHOSPHATE) PO SCH (11:05)
[2021-02-15] MEDS ORDERED: PHOS1TAB3 PO (11:14)
--- NOTE | 2021-02-15 18:31 | DS.PDOC ---
Discharge Summary General Date of Admission Feb 14, 2021 at 15:14 Date of Discharge 02/15/2021 Attending Physician: VALDO DODGE DO Discharge Summary PROCEDURES PERFORMED DURING STAY: None. ADMITTING DIAGNOSES: 1. Diabetic ketoacidosis. 2. Acute kidney injury 3. Type 1 diabetes mellitus 4. COPD, not in exacerbation DISCHARGE DIAGNOSES: 1. Diabetic ketoacidosis, resolved 2. Acute kidney injury, resolved 3. Type 1 diabetes mellitus 4. COPD, not in exacerbation COMPLICATIONS/CHIEF COMPLAINT: Acute Kidney Injury,Dka. HISTORY OF PRESENT ILLNESS: Patient is a 50-year-old female presented to the emergency department with nausea and vomiting for the past 4 days. Patient states she woke up Thursday not feeling well. Patient states that since this is not been eating very much. Patient has been having some vomiting over the past 3 days but no vomiting today. Patient still feels nauseous. Patient has been trying to drink and take some of her medications but finally came into emergency department today as she could not take it anymore. Patient reports that her vom it has been liquid and denies any blood in the vomit. Patient denies having any diarrhea and says her abdomen does not hurt but just feels off. Patient has extensive history of diabetic ketoacidosis and when she presented to the emergency department today, she was in diabetic ketoacidosis with a beta hydroxybutyrate greater than 46 and anion gap of 17. Emergency department called hospitalist for admission.. HOSPITAL COURSE: Patient was able to be transitioned overnight from IV insulin to subcutaneous insulin. Patient's DKA resolved overnight and patient was feeling much better on the morning of 02/15/2021. Patient's phosphorus was low and was given some oral K-Phos which was continued outpatient. Patient was doing much better and was asking about going home. Patient was able to be discharged as patient's JENNY had also improved. Patient was discharged home on 02/15/2021. DISCHARGE MEDICATIONS: Please see below. ALLERGIES: Please see below. PHYSICAL EXAMINATION ON DISCHARGE: VITAL SIGNS: Please see below. General: Alert and oriented female patient who was sitting in bed when I walked in. Patient not appear to be in any acute distress. HEENT: Normocephalic, atraumatic, moist mucous membranes. Neck: No lymphadenopathy or thyromegaly Cardiac: Regular rate and rhythm, no murmurs, normal S1, normal S2 Pulm: Clear to auscultation bilaterally. No wheezes, rhonchi, rales Abd: Nondistended, nontender to palpation, normal bowel sounds Ext: No edema bilateral lower extremities LABORATORY DATA: Please see below. IMAGING: Chest x-ray performed on 02/14/2021 was reported to show there is no acute cardiopulmonary disease. PROGNOSIS: Good ACTIVITY: As tolerated. DIET: Consistent carbohydrate DISCHARGE PLAN: Discharge home DISPOSITION: 01 Home, Self-Care. DISCHARGE INSTRUCTIONS: 1. Follow-up with primary care provider in 3 to 5 days discharge. 2. Continue taking insulin as prescribed 3. Return the emergency department if symptoms worsen ITEMS TO FOLLOWUP ON ON OUTPATIENT: 1. None. DISCHARGE CONDITION: Stable. TIME SPENT ON DISCHARGE: 25 minutes. Vital Signs/I&Os Vital Signs Date Time Temp Pulse Resp B/P (MAP) Pulse Ox O2 Delivery O2 Flow Rate FiO2 02/15/21 08:00 98.1 82 18 116/76 (89) 100 Room Air I&O- Last 24 Hours up to 6 AM 02/15/21 06:00 Intake Total 3911.5 ml Balance 3911.5 ml Laboratory Data Labs 24H Laboratory Tests 2 02/14/21 19:04: Bedside Glucose (Misc Panel) 143H 02/14/21 19:51: Bedside Glucose (Misc Panel) 120H 02/14/21 21:01: Bedside Glucose (Misc Panel) 140H 02/14/21 22:02: Bedside Glucose (Misc Panel) 131H 02/14/21 22:55: Bedside Glucose (Misc Panel) 144H 02/14/21 22:59: Blood Gas Bicarbonate Standard 24.7, Venous Blood pH 7.377, Venous Blood Partial Pressure CO2 45.0, Venous Blood Partial Pressure O2 54.8H, Venous Blood Total Carbon Dioxide 27.2, Venous Blood HCO3 25.8, Venous Blood Oxygen Saturation 86.3H, Venous Blood Base Excess 0.4, Anion Gap 5L, Glomerular Filtration Rate 50.9L, Calcium Level 8.4L, Phosphorus Level 2.4L 02/14/21 23:55: Bedside Glucose (Misc Panel) 166H 02/15/21 01:00: Bedside Glucose (Misc Panel) 135H 02/15/21 02:49: Bedside Glucose (Misc Panel) 91 02/15/21 02:59: Blood Gas Puncture Site UNKNOWN, Blood Gas Bicarbonate Standard 23.6, Venous Blood pH 7.356, Venous Blood Partial Pressure CO2 45.8, Venous Blood Partial Pressure O2 43.9, Venous Blood Total Carbon Dioxide 26.5, Venous Blood HCO3 25.1, Venous Blood Oxygen Saturation 78.6, Venous Blood Base Excess -0.7, Anion Gap 8, Glomerular Filtration Rate > 60.0, Osmolality 296H, Calcium Level 8.4L, Phosphorus Level 1.7#L 02/15/21 04:00: Bedside Glucose (Misc Panel) 130H 02/15/21 05:04: Bedside Glucose (Misc Panel) 137H 02/15/21 05:18: Blood Gas Puncture Site UNKNOWN, Blood Gas Bicarbonate Standard 22.2, Venous Blood pH 7.357, Venous Blood Partial Pressure CO2 41.5, Venous Blood Partial Pressure O2 60.5H, Venous Blood Total Carbon Dioxide 24.0, Venous Blood HCO3 22.8L, Venous Blood Oxygen Saturation 89.6H, Venous Blood Base Excess -2.6L, Anion Gap 8, Glomerular Filtration Rate > 60.0, Osmolality 291, Calcium Level 8.5, Phosphorus Level 1.9L, Magnesium Level 2.0 02/15/21 09:59: Anion Gap 5L, Glomerular Filtration Rate > 60.0, Calcium Level 8.8, Phosphorus Level 1.8L, Magnesium Level 2.0 CBC/BMP Laboratory Tests 02/14/21 22:59 02/15/21 02:59 02/15/21 05:18 02/15/21 09:59 FSBS Laboratory Tests Test 02/14/21 19:04 02/14/21 19:51 02/14/21 21:01 02/14/21 22:02 Range/Units Bedside Glucose (Misc Panel) 143 120 140 131 70-105 MG/DL Test 02/14/21 22:55 02/14/21 23:55 02/15/21 01:00 02/15/21 02:49 Range/Units Bedside Glucose (Misc Panel) 144 166 135 91 70-105 MG/DL Test 02/15/21 04:00 02/15/21 05:04 Range/Units Bedside Glucose (Misc Panel) 130 137 70-105 MG/DL Microbiology Microbiology 02/14/21 Blood Culture - Preliminary, Resulted No growth after 24 hours . All specim... 02/14/21 Blood Culture - Preliminary, Resulted No growth after 24 hours . All specim... Discharge Medications Scheduled Multivitamin with Minerals (Hair, Skin and Nails) 1 Each Tablet, 1 TAB PO DAILY, (Reported) Sod Phos Di, Beltrami/K Phos Beltrami (Phospha 250 Neutral Tablet) 250 Mg Tablet, 250 MG PO TID Scheduled PRN Docusate Sodium (Dok) 100 Mg Capsule, 100 MG PO DAILY PRN for CONSTIPATION, (Reported) Miscellaneous Medications Insulin Detemir (Levemir Flextouch) 100 Unit/1 Ml Insuln.pen, 10 UNIT SC, (Reported) PER SLIDING SCALE Insulin Lispro (Admelog) 100 Unit/1 Ml Vial, 6 UNIT SC, (Reported) PER SLIDING SCALE, IN AM BETWEEN 5-8 Allergies Coded Allergies: No Known Allergies (Verified , 11/30/19) VALDO DODGE DO Feb 15, 2021 18:31
[2021-02-15] MEDS ORDERED: HumaLOG INSULIN (NovoLOG) PER UNIT SC SCH (21:00)
== END 2021-02-15 12:45 | disposition home or self-care (01) | DRG 420 ==
LOC: M ED 11:25 → M ED INP 15:14 → ENRESERV 16:24 → M PCU 21:23
PROVIDERS: ADMIT Family Medicine; ATTEND Family Medicine
DX: E10.10 Type 1 diabetes mellitus with ketoacidosis without coma (principal); K31.84 Gastroparesis; N17.9 Acute kidney failure, unspecified; E10.43 Type 1 diabetes mellitus with diabetic autonomic (poly)neuropathy; E11.22 Type 2 diabetes mellitus with diabetic chronic kidney disease; N18.30 Chronic kidney disease, stage 3 unspecified; J44.9 Chronic obstructive pulmonary disease, unspecified; Z87.891 Personal history of nicotine dependence; Z79.4 Long term (current) use of insulin; Z79.899 Other long term (current) drug therapy

== ENCOUNTER 2021-05-24 11:03 | Inpatient (IN) | payer OTHER ==
[~2021-05-24] VITALS: Ht 170.2 cm; Wt 70.5 kg
[2021-05-24] MEDS: ENOXAPARIN 30MG/0.3ML SYRINGE (J1650 PER 10MG) SC SCH (09:00)
[~2021-05-24 11:03] MED LIST changes: +ADME100I SC; +PHOS1TAB3 PO; +SM HTAB3 PO
[2021-05-24] MEDS ORDERED: NS 1,000 ML IV ONE ×2 (11:40→17:00)
[2021-05-24 13:15] LABS: BASO % 0.3 % (0.0-1.0); HEMATOCRIT 34.8 % (36.0-47.0); HEMOGLOBIN 11.5 g/dl (12.0-15.5); LYMPH # 1.3 10^3/uL (1.5-5.0); LYMPH % 8.6 % (24.0-44.0); MEAN CORPUSCULAR VOLUME 87.9 fl (80.0-96.0); MONO # 0.4 10^3/uL (0.0-0.8); MONO % 2.7 % (2.0-8.0); NEUTROPHILS # 13.3 10^3/uL (1.5-8.5); NEUTROPHILS % 88.1 % (36.0-66.0); PLATELET COUNT, AUTOMATED 279 10^3/uL (150-450); RED BLOOD COUNT 3.96 10^6/uL (4.00-5.40); WHITE BLOOD COUNT 15.1 10^3/uL (4.0-10.0)
[2021-05-24 13:38] LABS: ABG BASE EXCESS -2.6 (-2.0-2.0); ABG HCO3 20.1 MEQ/L (22.0-26.0); ABG PARTIAL PRESSURE CO2 28.5 mmHg (35.0-45.0); ABG STANDARD HCO3 22.3 MEQ/L (22.0-26.0); ABG pH (ARTERIAL) 7.466 UNITS (7.350-7.450)
[2021-05-24 13:41] LABS: OSMOLALITY SERUM 313 MOSM/KG (275-295)
[2021-05-24 13:45] LABS: ACETONE/KETONE > 46.00 MG/DL (<2.81); ALT/SGPT 28 U/L (12-78); BILIRUBIN,DIRECT 0.2 MG/DL (0.0-0.2); BILIRUBIN,TOTAL 0.8 MG/DL (0.2-1.0); BLOOD UREA NITROGEN 60 MG/DL (7-18); CARBON DIOXIDE LEVEL 18 MEQ/L (21-32); CHLORIDE LEVEL 94 MEQ/L (98-107); CREATININE FOR GFR 2.11 MG/DL (0.55-1.30); GLOMERULAR FILTRATION RATE 32.2 (>58); GLUCOSE, FASTING 335 MG/DL (70-100); LIPASE 63 U/L (73-393); MAGNESIUM LEVEL 2.6 MG/DL (1.8-2.4); PHOSPHORUS LEVEL 4.9 MG/DL (2.5-4.9); SODIUM LEVEL 131 MEQ/L (136-145); TOTAL PROTEIN 8.7 GM/DL (6.4-8.2)
[2021-05-24] MEDS ORDERED: INSULIN REGULAR IN 0.9 % NACL 100 UNIT in IV 1 EA IV SCH ×8 (13:55→16:30)
[2021-05-24] MEDS ORDERED: INSULIN IV RATE CHANGE DOCUMENTATION ML/HR XX SCH ×3 (13:55→15:25)
[2021-05-24] MEDS ORDERED: POTASSIUM CHLORIDE INJ 20 MEQ in NS 1,000 ML IV SCH (14:00)
[2021-05-24] MEDS ORDERED: KCL 20MEQ in NS 1000ML 1,000 ML IV SCH (14:30)
[2021-05-24 14:49] LABS: HCG, SERUM QUALITATIVE NEGATIVE (NEGATIVE)
[2021-05-24 15:03] LABS: HEMOGLOBIN A1c 8.3 %
[2021-05-24] MEDS ORDERED: KCL 20MEQ IN D5/0.45NS 1000ML 1,000 ML IV SCH (15:05)
[2021-05-24] MEDS ORDERED: HumuLIN R (REGULAR) INSULIN (NovoLIN R) **100U/ML** PER UNIT IV ONE (15:10)
[2021-05-24] MEDS ORDERED: NS 1,000 ML IV SCH (15:15)
[2021-05-24] MEDS ORDERED: ENOXAPARIN 40MG/0.4ML SYRINGE (J1650 PER 10MG) SC ONE (15:15)
[2021-05-24] MEDS ORDERED: OMEP-173 PO (16:55)
[2021-05-24] MEDS ORDERED: SUCR1TAB56 PO (16:55)
[2021-05-24] MEDS ORDERED: METO10TA2 PO (16:55)
[2021-05-24] MEDS ORDERED: ONETAB20 PO (16:55)
[2021-05-24] MEDS: SUCRALFATE SUSP 1GM/10ML UD PO SCH (18:00)
[2021-05-24 18:05] VITALS: BP 148/88
[2021-05-24] MEDS: METOCLOPRAMIDE INJ 10MG/2ML VIAL (J2765 PER 1) IV SCH (18:10)
[2021-05-24 18:51] LABS: VENOUS BASE EXCESS -0.1 (-2.0-2.0); VENOUS HCO3 24.1 MEQ/L (23.0-27.0); VENOUS O2 SATURATION 61.6 % (60.0-80.0); VENOUS PARTIAL PRESSURE CO2 37.7 mmHg (38.0-50.0); VENOUS PARTIAL PRESSURE O2 32.4 mmHg (30.0-50.0); VENOUS PH 7.424 UNITS (7.330-7.430); VENOUS STANDARD HCO3 23.7 MEQ/L; VENOUS TOTAL CO2 25.3 MEQ/L (24.0-28.0)
[2021-05-24 19:00] VITALS: BP 113/70
[2021-05-24 19:09] LABS: CALCIUM LEVEL 9.3 MG/DL (8.5-10.1); CREATININE FOR GFR 1.77 MG/DL (0.55-1.30); GLOMERULAR FILTRATION RATE 39.5 (>58); MAGNESIUM LEVEL 2.4 MG/DL (1.8-2.4); PHOSPHORUS LEVEL 3.5 MG/DL (2.5-4.9); POTASSIUM SERUM 4.3 MEQ/L (3.5-5.1)
[2021-05-24] MEDS ORDERED: NS 0.45% 1,000 ML IV SCH (19:45)
[2021-05-24 20:00] VITALS: BP 100/62
[2021-05-24] MEDS ORDERED: LEVEMIR (INSULIN DETEMIR) 1 UNITS/0.01ML SC ONE (20:00)
[2021-05-24] MEDS: PANTOPRAZOLE 40MG VIAL (C9113 PER 1) IV SCH (20:06)
[2021-05-24 20:41] LABS: CALCIUM LEVEL 8.2 MG/DL (8.5-10.1); CREATININE FOR GFR 1.62 MG/DL (0.55-1.30); GLOMERULAR FILTRATION RATE 43.7 (>58); MAGNESIUM LEVEL 2.2 MG/DL (1.8-2.4); PHOSPHORUS LEVEL 2.2 MG/DL (2.5-4.9); POTASSIUM SERUM 3.5 MEQ/L (3.5-5.1)
[2021-05-24 21:00] VITALS: BP 124/74
[2021-05-24] MEDS ORDERED: GLUCAGON INJ 1MG VIAL SC PRN (21:45)
[2021-05-24] MEDS ORDERED: DEXTROSE 50% 50 ML SYRINGE IV PRN (21:45)
[2021-05-24] MEDS ORDERED: GLUCOSE 4GM CHEW TABLET PO PRN (21:45)
[2021-05-24 22:00] VITALS: BP 101/63
[2021-05-24 23:00] VITALS: BP 135/80
[2021-05-25] VITALS: BP 119/77
[2021-05-25 00:02] LABS: VENOUS HCO3 23.3 MEQ/L (23.0-27.0); VENOUS O2 SATURATION 98.7 % (60.0-80.0); VENOUS PARTIAL PRESSURE O2 176.8 mmHg (30.0-50.0); VENOUS PH 7.466 UNITS (7.330-7.430); VENOUS STANDARD HCO3 24.5 MEQ/L; VENOUS TOTAL CO2 24.3 MEQ/L (24.0-28.0)
[2021-05-25 00:28] LABS: CALCIUM LEVEL 8.3 MG/DL (8.5-10.1); CREATININE FOR GFR 1.43 MG/DL (0.55-1.30); GLOMERULAR FILTRATION RATE 50.5 (>58); MAGNESIUM LEVEL 2.2 MG/DL (1.8-2.4); PHOSPHORUS LEVEL 2.6 MG/DL (2.5-4.9); POTASSIUM SERUM 3.8 MEQ/L (3.5-5.1)
[2021-05-25] MEDS: D5W/0.45% SODIUM CHLORIDE 1,000 ML IV SCH ×2 (01:00→10:55)
[2021-05-25 02:00] VITALS: BP 119/80
[2021-05-25 04:00] VITALS: BP 119/77
[2021-05-25] MEDS: METOCLOPRAMIDE INJ 10MG/2ML VIAL (J2765 PER 1) IV SCH ×3 (05:50→11:43)
[2021-05-25] MEDS: SUCRALFATE SUSP 1GM/10ML UD PO SCH ×3 (05:50→11:43)
[2021-05-25 06:00] VITALS: BP 142/91
[2021-05-25 06:23] LABS: ACETONE/KETONE 3.27 MG/DL (<2.81); CALCIUM LEVEL 8.4 MG/DL (8.5-10.1); CREATININE FOR GFR 1.37 MG/DL (0.55-1.30); GLOMERULAR FILTRATION RATE 53.1 (>58); MAGNESIUM LEVEL 2.2 MG/DL (1.8-2.4); PHOSPHORUS LEVEL 2.2 MG/DL (2.5-4.9); POTASSIUM SERUM 3.5 MEQ/L (3.5-5.1)
[2021-05-25 08:00] VITALS: BP 136/86
[2021-05-25] MEDS ORDERED: ACETAMINOPHEN TAB 650MG DOSE (2X325MG) PO PRN (08:10)
[2021-05-25] MEDS ORDERED: PERCOCET 5MG/325MG TAB PO PRN (08:10)
[2021-05-25] MEDS ORDERED: PROMETHAZINE INJ 25 MG/ML VIAL (J2550) IV PRN (08:10)
[2021-05-25] MEDS: PANTOPRAZOLE 40MG VIAL (C9113 PER 1) IV SCH (08:24)
[2021-05-25] MEDS: HumaLOG INSULIN (NovoLOG) PER UNIT SC SCH ×2 (08:24→12:58)
[2021-05-25] MEDS: ENOXAPARIN 30MG/0.3ML SYRINGE (J1650 PER 10MG) SC SCH (08:25)
[2021-05-25] MEDS ORDERED: PERCOCET 5MG/325MG TAB PO ONE (08:30)
[2021-05-25] MEDS ORDERED: PROT1TAB2 PO (11:47)
[2021-05-25] MEDS ORDERED: CARA1TAB6 PO (11:47)
[2021-05-25] MEDS ORDERED: REGL5TAB2 PO (11:47)
[2021-05-25] MEDS ORDERED: HumaLOG INSULIN (NovoLOG) PER UNIT SC SCH (21:00)
== END 2021-05-25 13:59 | disposition home or self-care (01) | DRG 420 ==
LOC: EDBD 11:03 → M ED 11:03 → M ED INP 15:11 → M ICU 17:54
PROVIDERS: ADMIT General Practice; ATTEND General Practice
DX: E10.10 Type 1 diabetes mellitus with ketoacidosis without coma (principal); K31.84 Gastroparesis; N17.9 Acute kidney failure, unspecified; E10.43 Type 1 diabetes mellitus with diabetic autonomic (poly)neuropathy; N18.30 Chronic kidney disease, stage 3 unspecified; K29.70 Gastritis, unspecified, without bleeding; E87.1 Hypo-osmolality and hyponatremia; F12.188 Cannabis abuse with other cannabis-induced disorder; E10.22 Type 1 diabetes mellitus with diabetic chronic kidney disease; J44.9 Chronic obstructive pulmonary disease, unspecified; Z87.891 Personal history of nicotine dependence; Z79.4 Long term (current) use of insulin; Z79.899 Other long term (current) drug therapy

== ENCOUNTER 2021-06-06 13:51 | Observation (INO) | payer OTHER ==
[~2021-06-06] VITALS: Ht 170.2 cm; Wt 72.7 kg
[~2021-06-06 13:51] MED LIST changes: +METO10TA2 PO; +OMEP-173 PO; +ONETAB20 PO; +SUCR1TAB56 PO
[2021-06-06] MEDS ORDERED: HALOPERIDOL 5MG/ML VIAL (J1630 PER 1) IV ONE (14:45)
[2021-06-06 15:23] LABS: VENOUS BASE EXCESS -5.3 (-2.0-2.0); VENOUS HCO3 19.4 MEQ/L (23.0-27.0); VENOUS O2 SATURATION 87.7 % (60.0-80.0); VENOUS PARTIAL PRESSURE CO2 34.8 mmHg (38.0-50.0); VENOUS PARTIAL PRESSURE O2 57.5 mmHg (30.0-50.0); VENOUS PH 7.364 UNITS (7.330-7.430); VENOUS TOTAL CO2 20.5 MEQ/L (24.0-28.0)
[2021-06-06 15:28] LABS: BASO # 0.1 10^3/uL (0.0-0.2); BASO % 0.6 % (0.0-1.0); EOS # 0.1 10^3/uL (0.0-0.5); EOS % 0.6 % (0.0-3.0); HEMATOCRIT 31.1 % (36.0-47.0); HEMOGLOBIN 10.6 g/dl (12.0-15.5); LYMPH # 1.6 10^3/uL (1.5-5.0); LYMPH % 14.6 % (24.0-44.0); MEAN CORPUSCULAR HEMOGLOBIN 29.7 pg (27.0-33.0); MEAN CORPUSCULAR HGB CONC 34.1 g/dl (32.0-36.5); MEAN CORPUSCULAR VOLUME 87.1 fl (80.0-96.0); MONO # 0.4 10^3/uL (0.0-0.8); MONO % 3.6 % (2.0-8.0); NEUTROPHILS # 8.9 10^3/uL (1.5-8.5); NEUTROPHILS % 80.2 % (36.0-66.0); PLATELET COUNT, AUTOMATED 305 10^3/uL (150-450); RED BLOOD COUNT 3.57 10^6/uL (4.00-5.40); WHITE BLOOD COUNT 11.1 10^3/uL (4.0-10.0)
[2021-06-06 16:02] LABS: CALCIUM LEVEL 10.3 MG/DL (8.5-10.1); CREATININE FOR GFR 1.42 MG/DL (0.55-1.30); GLOMERULAR FILTRATION RATE 50.9 (>58); POTASSIUM SERUM 4.8 MEQ/L (3.5-5.1)
[2021-06-06] MEDS ORDERED: NS 1,000 ML IV ONE (16:05)
[2021-06-06] MEDS ORDERED: KETAMINE HCL 14.55 MG in NS 50 ML IV ONE (17:15)
[2021-06-06] MEDS ORDERED: diphenhydrAMINE 50MG/ML VIAL (J1200) IV ONE (17:20)
[2021-06-06] MEDS ORDERED: METOCLOPRAMIDE INJ 10MG/2ML VIAL (J2765 PER 1) IV ONE (19:40)
[2021-06-06 21:28] LABS: ALBUMIN 4.3 GM/DL (3.2-5.2); BILIRUBIN,DIRECT 0.2 MG/DL (0.0-0.2); BILIRUBIN,TOTAL 0.6 MG/DL (0.2-1.0); TOTAL PROTEIN 7.7 GM/DL (6.4-8.2)
[2021-06-06 23:30] LABS: RSV AMPLIFICATION NEGATIVE (NEGATIVE)
[2021-06-06] MEDS ORDERED: ONDANSETRON 4MG/2ML VIAL IV PRN (23:35)
[2021-06-06] MEDS ORDERED: GLUCOSE 4GM CHEW TABLET PO PRN (23:40)
[2021-06-06] MEDS ORDERED: GLUCAGON INJ 1MG VIAL SC PRN (23:40)
[2021-06-06] MEDS ORDERED: DEXTROSE 50% 50 ML SYRINGE IV PRN (23:40)
[2021-06-06] MEDS: NS 1,000 ML IV SCH (23:50)
[2021-06-06] MEDS: HumaLOG INSULIN (NovoLOG) PER UNIT SC SCH (23:55)
[2021-06-07] MEDS ORDERED: MORPHINE 4 MG/ML 1ML VIAL/SYRINGE (J2270) IV PRN (00:05)
[2021-06-07 00:11] LABS: MAGNESIUM LEVEL 1.7 MG/DL (1.8-2.4)
[2021-06-07] MEDS ORDERED: DICYCLOMINE 10 MG CAP PO ONE (00:15)
[2021-06-07] MEDS ORDERED: ADME100I SC (00:56)
[2021-06-07] MEDS ORDERED: HOME MED LIST COMPLETE! XX SCH (01:00)
[2021-06-07] MEDS: METOCLOPRAMIDE INJ 10MG/2ML VIAL (J2765 PER 1) IV SCH ×2 (02:49→08:37)
[2021-06-07 05:45] LABS: BASO % 0.3 % (0.0-1.0); EOS % 0.1 % (0.0-3.0); HEMATOCRIT 27.1 % (36.0-47.0); HEMOGLOBIN 9.1 g/dl (12.0-15.5); LYMPH # 1.2 10^3/uL (1.5-5.0); LYMPH % 13.8 % (24.0-44.0); MEAN CORPUSCULAR HGB CONC 33.6 g/dl (32.0-36.5); MEAN CORPUSCULAR VOLUME 86.3 fl (80.0-96.0); MONO # 0.7 10^3/uL (0.0-0.8); MONO % 8.1 % (2.0-8.0); NEUTROPHILS % 77.4 % (36.0-66.0); PLATELET COUNT, AUTOMATED 276 10^3/uL (150-450); RED BLOOD COUNT 3.14 10^6/uL (4.00-5.40)
[2021-06-07 06:00] VITALS: BP 138/83
[2021-06-07] MEDS: HumaLOG INSULIN (NovoLOG) PER UNIT SC SCH ×2 (06:00→12:26)
[2021-06-07 06:12] LABS: CREATININE FOR GFR 1.24 MG/DL (0.55-1.30); GLOMERULAR FILTRATION RATE 59.5 (>58); POTASSIUM SERUM 4.3 MEQ/L (3.5-5.1)
[2021-06-07] MEDS: SUCRALFATE SUSP 1GM/10ML UD PO SCH ×3 (07:30→12:00)
[2021-06-07] MEDS ORDERED: KETOROLAC 30 MG/ML 1ML VIAL IV ONE (08:05)
[2021-06-07] MEDS: PANTOPRAZOLE 40MG TAB (PROTONIX) PO SCH ×2 (08:37→08:40)
[2021-06-07] MEDS: NS 1,000 ML IV SCH (08:38)
[2021-06-07] MEDS ORDERED: REGL5TAB2 PO (12:11)
[2021-06-07] MEDS ORDERED: CARA1TAB6 PO (12:11)
[2021-06-07] MEDS ORDERED: PROTPAK PO (12:11)
== END 2021-06-07 14:25 | disposition home or self-care (01) ==
LOC: M ED 13:51 → M ED INP 13:52 → ENRESERV 06-07 04:06 → M MSPAV 06-07 05:53
PROVIDERS: ADMIT Family Medicine; ATTEND General Practice
DX: E10.43 Type 1 diabetes mellitus with diabetic autonomic (poly)neuropathy (principal); R11.2 Nausea with vomiting, unspecified; N17.9 Acute kidney failure, unspecified; F12.288 Cannabis dependence with other cannabis-induced disorder; R51.9 Headache, unspecified; Z87.19 Personal history of other diseases of the digestive system; D72.829 Elevated white blood cell count, unspecified; R00.0 Tachycardia, unspecified; N18.30 Chronic kidney disease, stage 3 unspecified; D64.9 Anemia, unspecified; Z79.899 Other long term (current) drug therapy; Z79.4 Long term (current) use of insulin; Z87.891 Personal history of nicotine dependence
CPT/HCPCS: 36415; 80048; 80076; 82803; 83605; 83690; 83735; 85025; 87631; 93041; 96361; 96365; 96375; 96376; 99285; J1200; J1630; J1815; J1885; J2405; J2765

== ENCOUNTER 2021-06-12 14:03 | Inpatient (IN) | payer OTHER ==
[~2021-06-12] VITALS: Ht 170.2 cm; Wt 71.0 kg
[~2021-06-12 14:03] MED LIST changes: +PROTPAK PO
[2021-06-12] MEDS ORDERED: NS 1,000 ML IV ONE ×2 (14:15→15:40)
[2021-06-12] MEDS ORDERED: HALOPERIDOL 5MG/ML VIAL (J1630 PER 1) IV ONE (14:15)
[2021-06-12 14:38] LABS: VENOUS BASE EXCESS -12.5 (-2.0-2.0); VENOUS HCO3 12.7 MEQ/L (23.0-27.0); VENOUS O2 SATURATION 59.1 % (60.0-80.0); VENOUS PARTIAL PRESSURE CO2 27.8 mmHg (38.0-50.0); VENOUS PARTIAL PRESSURE O2 35.5 mmHg (30.0-50.0); VENOUS PH 7.278 UNITS (7.330-7.430); VENOUS STANDARD HCO3 14.1 MEQ/L; VENOUS TOTAL CO2 13.6 MEQ/L (24.0-28.0)
[2021-06-12 14:45] LABS: BASO % 0.4 % (0.0-1.0); HEMATOCRIT 37.4 % (36.0-47.0); HEMOGLOBIN 12.3 g/dl (12.0-15.5); LYMPH # 0.7 10^3/uL (1.5-5.0); MEAN CORPUSCULAR HEMOGLOBIN 28.8 pg (27.0-33.0); MEAN CORPUSCULAR HGB CONC 32.9 g/dl (32.0-36.5); MEAN CORPUSCULAR VOLUME 87.6 fl (80.0-96.0); MONO # 0.2 10^3/uL (0.0-0.8); MONO % 1.8 % (2.0-8.0); NEUTROPHILS # 8.2 10^3/uL (1.5-8.5); NEUTROPHILS % 89.5 % (36.0-66.0); PLATELET COUNT, AUTOMATED 339 10^3/uL (150-450); RED BLOOD COUNT 4.27 10^6/uL (4.00-5.40); WHITE BLOOD COUNT 9.2 10^3/uL (4.0-10.0)
[2021-06-12 15:20] LABS: CK-MB VALUE MASS < 1.0 NG/ML (<3.6); CPK CREATINE PHOSPHOKINASE 46 U/L (26-192); MB/CK RELATIVE INDEX 2.17 (< OR =4)
[2021-06-12 15:30] LABS: ALBUMIN 4.9 GM/DL (3.2-5.2); ALT/SGPT 26 U/L (12-78); BILIRUBIN,DIRECT 0.3 MG/DL (0.0-0.2); BLOOD UREA NITROGEN 37 MG/DL (7-18); CALCIUM LEVEL 10.3 MG/DL (8.5-10.1); CARBON DIOXIDE LEVEL 15 MEQ/L (21-32); CHLORIDE LEVEL 92 MEQ/L (98-107); CREATININE FOR GFR 1.87 MG/DL (0.55-1.30); ETHYL ALCOHOL (ETHANOL) < 0.003 % (0.000-0.010); GLOMERULAR FILTRATION RATE 37.1 (>58); GLUCOSE, FASTING 383 MG/DL (70-100); LIPASE 50 U/L (73-393); POTASSIUM SERUM 5.2 MEQ/L (3.5-5.1); SODIUM LEVEL 129 MEQ/L (136-145)
[2021-06-12 15:37] LABS: HEMOGLOBIN A1c 8.6 %; OSMOLALITY SERUM 307 MOSM/KG (275-295)
[2021-06-12] MEDS ORDERED: INSULIN IV RATE CHANGE DOCUMENTATION ML/HR XX SCH ×2 (15:40→16:40)
[2021-06-12] MEDS ORDERED: INSULIN REGULAR IN 0.9 % NACL 100 UNIT in IV 1 EA IV SCH ×4 (15:40→16:40)
[2021-06-12] MEDS ORDERED: NS 1,000 ML IV SCH (16:40)
[2021-06-12 16:42] LABS: RSV AMPLIFICATION NEGATIVE (NEGATIVE)
[2021-06-12] MEDS ORDERED: ACETAMINOPHEN TAB 650MG DOSE (2X325MG) PO PRN (16:55)
[2021-06-12] MEDS: PANTOPRAZOLE 40MG VIAL (C9113 PER 1) IV SCH (17:16)
[2021-06-12] MEDS: KETOROLAC 30 MG/ML 1ML VIAL IV PRN ×2 (17:17→23:22)
[2021-06-12] MEDS ORDERED: METO5TAB2 PO (17:37)
[2021-06-12] MEDS ORDERED: PANT40TA29 PO (17:37)
[2021-06-12] MEDS ORDERED: SUCR1TA PO (17:37)
[2021-06-12] MEDS ORDERED: HOME MED LIST COMPLETE! XX SCH (17:40)
[2021-06-12 19:27] LABS: CALCIUM LEVEL 8.7 MG/DL (8.5-10.1); CREATININE FOR GFR 1.75 MG/DL (0.55-1.30); PHOSPHORUS LEVEL 5.9 MG/DL (2.5-4.9); POTASSIUM SERUM 4.1 MEQ/L (3.5-5.1)
[2021-06-12] MEDS: METOCLOPRAMIDE INJ 10MG/2ML VIAL (J2765 PER 1) IV PRN (19:42)
[2021-06-12] MEDS: D5W/0.45% SODIUM CHLORIDE 1,000 ML IV SCH (22:37)
[2021-06-12 23:00] VITALS: BP 121/70
[2021-06-13] VITALS (15 sets, daily range): BP systolic 94–166; BP diastolic 54–108
[2021-06-13] MEDS ORDERED: INSULIN IV RATE CHANGE DOCUMENTATION ML/HR XX SCH (01:20)
[2021-06-13 01:44] LABS: CREATININE FOR GFR 1.86 MG/DL (0.55-1.30); GLOMERULAR FILTRATION RATE 37.3 (>58); PHOSPHORUS LEVEL 3.8 MG/DL (2.5-4.9)
[2021-06-13] MEDS ORDERED: INSULIN REGULAR IN 0.9 % NACL 100 UNIT in IV 1 EA IV SCH ×2 (02:00)
[2021-06-13] MEDS: METOCLOPRAMIDE INJ 10MG/2ML VIAL (J2765 PER 1) IV PRN ×2 (05:19→08:40)
[2021-06-13] MEDS: diphenhydrAMINE 50MG/ML VIAL (J1200) IV PRN ×2 (05:19→08:40)
[2021-06-13] MEDS: KETOROLAC 30 MG/ML 1ML VIAL IV PRN (05:25)
[2021-06-13] MEDS: D5W/0.45% SODIUM CHLORIDE 1,000 ML IV SCH (05:26)
[2021-06-13 05:51] LABS: CALCIUM LEVEL 8.2 MG/DL (8.5-10.1); CREATININE FOR GFR 1.93 MG/DL (0.55-1.30); GLOMERULAR FILTRATION RATE 35.7 (>58); PHOSPHORUS LEVEL 2.7 MG/DL (2.5-4.9); POTASSIUM SERUM 3.3 MEQ/L (3.5-5.1)
[2021-06-13] MEDS ORDERED: GLUCAGON INJ 1MG VIAL SC PRN (07:40)
[2021-06-13] MEDS ORDERED: GLUCOSE 4GM CHEW TABLET PO PRN (07:40)
[2021-06-13] MEDS ORDERED: LEVEMIR (INSULIN DETEMIR) 1 UNITS/0.01ML SC ONE (07:40)
[2021-06-13] MEDS ORDERED: KCL 10MEQ/100ML SWI (KRUN) 10 MEQ in IV 1 EA IV ONE (08:00)
[2021-06-13] MEDS: KCL 20MEQ IN D5/0.45NS 1000ML 1,000 ML IV SCH ×2 (08:29→17:23)
[2021-06-13] MEDS: PANTOPRAZOLE 40MG VIAL (C9113 PER 1) IV SCH (08:29)
[2021-06-13] MEDS: HumaLOG INSULIN (NovoLOG) PER UNIT SC SCH ×4 (08:33→20:01)
[2021-06-13] MEDS ORDERED: PERCOCET 5MG/325MG TAB PO PRN (09:15)
[2021-06-13] MEDS ORDERED: LORazepam 2 MG/ML VIAL IV PRN (09:25)
[2021-06-13 09:28] LABS: CALCIUM LEVEL 8.5 MG/DL (8.5-10.1); CREATININE FOR GFR 1.76 MG/DL (0.55-1.30); GLOMERULAR FILTRATION RATE 39.8 (>58); MAGNESIUM LEVEL 1.7 MG/DL (1.8-2.4); PHOSPHORUS LEVEL 3.1 MG/DL (2.5-4.9); POTASSIUM SERUM 4.3 MEQ/L (3.5-5.1)
[2021-06-13] MEDS: oxyCODONE 5MG TAB PO PRN (09:47)
[2021-06-13] MEDS ORDERED: MAG SULF 1GM/100ML (MAG RUN) 1 GM in IV 1 EA IV ONE (10:00)
[2021-06-13 12:42] LABS: CALCIUM LEVEL 8.3 MG/DL (8.5-10.1); CREATININE FOR GFR 1.63 MG/DL (0.55-1.30); GLOMERULAR FILTRATION RATE 43.4 (>58); POTASSIUM SERUM 3.6 MEQ/L (3.5-5.1)
[2021-06-13] MEDS: NS 1,000 ML IV SCH (18:38)
[2021-06-13 20:16] LABS: ACETONE/KETONE > 46.00 MG/DL (<2.81)
[2021-06-13 20:29] LABS: CALCIUM LEVEL 8.5 MG/DL (8.5-10.1); CREATININE FOR GFR 1.46 MG/DL (0.55-1.30); GLOMERULAR FILTRATION RATE 49.3 (>58); POTASSIUM SERUM 4.5 MEQ/L (3.5-5.1)
[2021-06-13] MEDS: SUCRALFATE 1 GM TAB PO SCH ×2 (20:53→21:00)
[2021-06-14] VITALS: BP 124/74
[2021-06-14 04:00] VITALS: BP 155/85
[2021-06-14] MEDS: diphenhydrAMINE 50MG/ML VIAL (J1200) IV PRN ×2 (04:09→18:02)
[2021-06-14] MEDS: METOCLOPRAMIDE INJ 10MG/2ML VIAL (J2765 PER 1) IV PRN ×2 (04:10→18:02)
[2021-06-14] MEDS: oxyCODONE 5MG TAB PO PRN (04:19)
[2021-06-14] MEDS: NS 1,000 ML IV SCH ×3 (04:52→23:55)
[2021-06-14 07:14] LABS: HEMATOCRIT 26.2 % (36.0-47.0); MEAN CORPUSCULAR HEMOGLOBIN 28.8 pg (27.0-33.0); MEAN CORPUSCULAR HGB CONC 33.6 g/dl (32.0-36.5); MEAN CORPUSCULAR VOLUME 85.6 fl (80.0-96.0); PLATELET COUNT, AUTOMATED 236 10^3/uL (150-450); RED BLOOD COUNT 3.06 10^6/uL (4.00-5.40); WHITE BLOOD COUNT 8.9 10^3/uL (4.0-10.0)
[2021-06-14 07:18] LABS: HEMOGLOBIN 8.8 g/dl (12.0-15.5)
[2021-06-14 07:27] LABS: CALCIUM LEVEL 8.3 MG/DL (8.5-10.1); CREATININE FOR GFR 1.24 MG/DL (0.55-1.30); GLOMERULAR FILTRATION RATE 59.5 (>58); POTASSIUM SERUM 3.6 MEQ/L (3.5-5.1)
[2021-06-14] MEDS: SUCRALFATE 1 GM TAB PO SCH ×4 (07:30→20:51)
[2021-06-14 08:00] VITALS: BP 139/70
[2021-06-14] MEDS: PANTOPRAZOLE 40MG VIAL (C9113 PER 1) IV SCH (08:00)
[2021-06-14] MEDS: HumaLOG INSULIN (NovoLOG) PER UNIT SC SCH ×4 (08:00→20:51)
[2021-06-14] MEDS ORDERED: LORazepam 2 MG/ML VIAL IV PRN (11:10)
[2021-06-14] MEDS ORDERED: ISOVUE-370 76% 100ML VIAL As Ordered ONE (11:22)
[2021-06-14 16:00] VITALS: BP 117/74
[2021-06-14 19:56] VITALS: BP 146/75
[2021-06-14] MEDS ORDERED: LEVEMIR (INSULIN DETEMIR) 1 UNITS/0.01ML SC SCH (21:00)
[2021-06-14 23:43] VITALS: BP 168/77
[2021-06-15] MEDS: METOCLOPRAMIDE INJ 10MG/2ML VIAL (J2765 PER 1) IV PRN ×3 (00:14→17:19)
[2021-06-15] MEDS: diphenhydrAMINE 50MG/ML VIAL (J1200) IV PRN ×3 (00:14→17:18)
[2021-06-15] MEDS ORDERED: SODIUM CHLORIDE 0.9% INJ 10 ML SYR IV PRN (01:00)
[2021-06-15] MEDS: SODIUM CHLORIDE 0.9% INJ 10 ML SYR IV PRN (01:06)
[2021-06-15] MEDS: SODIUM CHLORIDE 0.9% INJ 10 ML SYR IV SCH ×3 (05:00→23:08)
[2021-06-15] MEDS ORDERED: ONDANSETRON 4MG/2ML VIAL IV ONE (05:00)
[2021-06-15 05:46] LABS: HEMATOCRIT 25.9 % (36.0-47.0); HEMOGLOBIN 8.7 g/dl (12.0-15.5); MEAN CORPUSCULAR HEMOGLOBIN 29.1 pg (27.0-33.0); MEAN CORPUSCULAR HGB CONC 33.6 g/dl (32.0-36.5); MEAN CORPUSCULAR VOLUME 86.6 fl (80.0-96.0); PLATELET COUNT, AUTOMATED 227 10^3/uL (150-450); RED BLOOD COUNT 2.99 10^6/uL (4.00-5.40); WHITE BLOOD COUNT 7.6 10^3/uL (4.0-10.0)
[2021-06-15 06:00] VITALS: BP 125/69
[2021-06-15 06:12] LABS: BLOOD UREA NITROGEN 15 MG/DL (7-18); CREATININE FOR GFR 1.23 MG/DL (0.55-1.30); GLUCOSE, FASTING 388 MG/DL (70-100)
[2021-06-15 06:13] LABS: CALCIUM LEVEL 8.6 MG/DL (8.5-10.1); CARBON DIOXIDE LEVEL 13 MEQ/L (21-32); CHLORIDE LEVEL 103 MEQ/L (98-107); GLOMERULAR FILTRATION RATE > 60.0 (>58); POTASSIUM SERUM 4.1 MEQ/L (3.5-5.1); SODIUM LEVEL 135 MEQ/L (136-145)
[2021-06-15] MEDS: SUCRALFATE 1 GM TAB PO SCH (07:30)
[2021-06-15] MEDS: HumaLOG INSULIN (NovoLOG) PER UNIT SC SCH ×4 (08:30→21:00)
[2021-06-15] MEDS: LEVEMIR (INSULIN DETEMIR) 1 UNITS/0.01ML SC SCH (08:30)
[2021-06-15] MEDS: NS 1,000 ML IV SCH ×2 (08:31→17:18)
[2021-06-15] MEDS: PANTOPRAZOLE 40MG VIAL (C9113 PER 1) IV SCH (08:31)
[2021-06-15] MEDS ORDERED: LEVEMIR (INSULIN DETEMIR) 1 UNITS/0.01ML SC SCH (09:00)
[2021-06-15] MEDS: SUCRALFATE SUSP 1GM/10ML UD PO SCH ×3 (12:58→21:00)
[2021-06-15 13:44] LABS: CALCIUM LEVEL 8.5 MG/DL (8.5-10.1); CREATININE FOR GFR 1.5 MG/DL (0.55-1.30); GLOMERULAR FILTRATION RATE 47.8 (>58); POTASSIUM SERUM 4.2 MEQ/L (3.5-5.1)
[2021-06-15 14:00] VITALS: BP 154/80
[2021-06-15] MEDS ORDERED: traMADol 50 MG TAB PO PRN (14:30)
[2021-06-15] MEDS: DEXTROSE 50% 50 ML SYRINGE IV PRN (21:22)
[2021-06-15 22:00] VITALS: BP 132/73
[2021-06-15] MEDS: MORPHINE 4 MG/ML 1ML VIAL/SYRINGE (J2270) IV PRN (22:52)
[2021-06-16] MEDS: DEXTROSE 50% 50 ML SYRINGE IV PRN (01:58)
[2021-06-16] MEDS: D5W/0.9% SODIUM CHLORIDE 1,000 ML IV SCH ×4 (03:14→23:33)
[2021-06-16] MEDS ORDERED: ONDANSETRON 4MG/2ML VIAL IV ONE ×2 (04:00→07:00)
[2021-06-16] MEDS: MORPHINE 4 MG/ML 1ML VIAL/SYRINGE (J2270) IV PRN ×3 (04:42→21:19)
[2021-06-16] MEDS: SODIUM CHLORIDE 0.9% INJ 10 ML SYR IV PRN ×2 (04:43→23:46)
[2021-06-16 06:00] VITALS: BP 133/77
[2021-06-16 06:32] LABS: HEMATOCRIT 22.6 % (36.0-47.0); HEMOGLOBIN 7.8 g/dl (12.0-15.5); MEAN CORPUSCULAR HEMOGLOBIN 28.9 pg (27.0-33.0); MEAN CORPUSCULAR HGB CONC 34.5 g/dl (32.0-36.5); MEAN CORPUSCULAR VOLUME 83.7 fl (80.0-96.0); PLATELET COUNT, AUTOMATED 200 10^3/uL (150-450); WHITE BLOOD COUNT 4.9 10^3/uL (4.0-10.0)
[2021-06-16] MEDS: SODIUM CHLORIDE 0.9% INJ 10 ML SYR IV SCH ×4 (06:33→21:19)
[2021-06-16 06:59] LABS: BLOOD UREA NITROGEN 9 MG/DL (7-18); CALCIUM LEVEL 8.1 MG/DL (8.5-10.1); CARBON DIOXIDE LEVEL 23 MEQ/L (21-32); CHLORIDE LEVEL 107 MEQ/L (98-107); CREATININE FOR GFR 0.95 MG/DL (0.55-1.30); GLOMERULAR FILTRATION RATE > 60.0 (>58); GLUCOSE, FASTING 120 MG/DL (70-100); POTASSIUM SERUM 3.4 MEQ/L (3.5-5.1); SODIUM LEVEL 138 MEQ/L (136-145)
[2021-06-16 07:04] LABS: MAGNESIUM LEVEL 1.2 MG/DL (1.8-2.4); PERCENT SATURATION 36.9 % (13.2-45.0)
[2021-06-16] MEDS ORDERED: POTASSIUM CHLORIDE 10MEQ SR TABLET PO ONE (07:20)
[2021-06-16] MEDS: SUCRALFATE SUSP 1GM/10ML UD PO SCH ×5 (07:30→21:05)
[2021-06-16] MEDS: HumaLOG INSULIN (NovoLOG) PER UNIT SC SCH ×4 (07:30→23:46)
[2021-06-16] MEDS: LEVEMIR (INSULIN DETEMIR) 1 UNITS/0.01ML SC SCH (07:48)
[2021-06-16] MEDS: PANTOPRAZOLE 40MG VIAL (C9113 PER 1) IV SCH (08:31)
[2021-06-16] MEDS: MAG SULF 1GM/100ML (MAG RUN) 1 GM in IV 1 EA IV SCH ×4 (08:32→13:22)
[2021-06-16] MEDS: KCL 10MEQ/100ML SWI (KRUN) 10 MEQ in IV 1 EA IV SCH ×4 (08:32→13:21)
[2021-06-16] MEDS: DOCUSATE SODIUM 100MG CAPSULE PO SCH ×4 (09:00→21:05)
[2021-06-16] MEDS: BISACODYL 10 MG SUPP PR SCH (10:45)
[2021-06-16] MEDS: diphenhydrAMINE 50MG/ML VIAL (J1200) IV PRN (12:25)
[2021-06-16] MEDS: METOCLOPRAMIDE INJ 10MG/2ML VIAL (J2765 PER 1) IV PRN (12:26)
[2021-06-16 14:00] VITALS: BP 140/91
[2021-06-16 22:00] VITALS: BP 152/89
[2021-06-16] MEDS ORDERED: NS 1,000 ML IV SCH (23:45)
[2021-06-17] MEDS: HumaLOG INSULIN (NovoLOG) PER UNIT SC SCH ×5 (04:00→20:00)
[2021-06-17] MEDS: D5W/0.9% SODIUM CHLORIDE 1,000 ML IV SCH ×3 (04:25→14:28)
[2021-06-17 05:53] VITALS: BP 144/88
[2021-06-17 05:59] LABS: HEMATOCRIT 24.9 % (36.0-47.0); HEMOGLOBIN 8.7 g/dl (12.0-15.5); MEAN CORPUSCULAR HEMOGLOBIN 28.9 pg (27.0-33.0); MEAN CORPUSCULAR HGB CONC 34.9 g/dl (32.0-36.5); MEAN CORPUSCULAR VOLUME 82.7 fl (80.0-96.0); PLATELET COUNT, AUTOMATED 226 10^3/uL (150-450); RED BLOOD COUNT 3.01 10^6/uL (4.00-5.40); WHITE BLOOD COUNT 5.2 10^3/uL (4.0-10.0)
[2021-06-17 06:21] LABS: BLOOD UREA NITROGEN 7 MG/DL (7-18); CALCIUM LEVEL 8.4 MG/DL (8.5-10.1); CARBON DIOXIDE LEVEL 26 MEQ/L (21-32); CHLORIDE LEVEL 108 MEQ/L (98-107); CREATININE FOR GFR 1.06 MG/DL (0.55-1.30); GLOMERULAR FILTRATION RATE > 60.0 (>58); GLUCOSE, FASTING 90 MG/DL (70-100); POTASSIUM SERUM 3.5 MEQ/L (3.5-5.1); SODIUM LEVEL 140 MEQ/L (136-145)
[2021-06-17] MEDS: SODIUM CHLORIDE 0.9% INJ 10 ML SYR IV SCH ×3 (07:49→22:00)
[2021-06-17] MEDS ORDERED: KCL 10MEQ/100ML SWI (KRUN) 10 MEQ in IV 1 EA IV ONE (08:00)
[2021-06-17 08:29] LABS: MAGNESIUM LEVEL 1.9 MG/DL (1.8-2.4)
[2021-06-17 10:06] LABS: FOLATE 5.4 NG/ML (>5.4)
[2021-06-17] MEDS: MORPHINE 4 MG/ML 1ML VIAL/SYRINGE (J2270) IV PRN (10:09)
[2021-06-17] MEDS: SENNA 8.6 MG TAB (SENOKOT) PO SCH ×2 (10:10→20:26)
[2021-06-17] MEDS: DOCUSATE SODIUM 100MG CAPSULE PO SCH ×2 (10:10→20:26)
[2021-06-17] MEDS: SUCRALFATE SUSP 1GM/10ML UD PO SCH ×4 (10:10→20:26)
[2021-06-17] MEDS: LEVEMIR (INSULIN DETEMIR) 1 UNITS/0.01ML SC SCH (10:10)
[2021-06-17] MEDS: BISACODYL 10 MG SUPP PR SCH (10:10)
[2021-06-17] MEDS: PANTOPRAZOLE 40MG VIAL (C9113 PER 1) IV SCH (10:10)
[2021-06-17 10:30] VITALS: BP 146/70
[2021-06-17] MEDS: SODIUM CHLORIDE 0.9% INJ 10 ML SYR IV PRN (11:46)
[2021-06-17 14:00] VITALS: BP 140/80
[2021-06-17] MEDS: DEXTROSE 50% 50 ML SYRINGE IV PRN (20:20)
[2021-06-17 22:00] VITALS: BP 139/81
[2021-06-18] MEDS: D5W/0.9% SODIUM CHLORIDE 1,000 ML IV SCH ×2 (00:16→10:30)
[2021-06-18] MEDS: HumaLOG INSULIN (NovoLOG) PER UNIT SC SCH ×6 (04:00→20:00)
[2021-06-18 06:00] VITALS: BP 152/82
[2021-06-18] MEDS: SODIUM CHLORIDE 0.9% INJ 10 ML SYR IV SCH ×3 (06:17→20:58)
[2021-06-18 07:00] LABS: HEMATOCRIT 26.1 % (36.0-47.0); HEMOGLOBIN 8.9 g/dl (12.0-15.5); MEAN CORPUSCULAR HEMOGLOBIN 28.9 pg (27.0-33.0); MEAN CORPUSCULAR HGB CONC 34.1 g/dl (32.0-36.5); MEAN CORPUSCULAR VOLUME 84.7 fl (80.0-96.0); PLATELET COUNT, AUTOMATED 243 10^3/uL (150-450); RED BLOOD COUNT 3.08 10^6/uL (4.00-5.40); WHITE BLOOD COUNT 5.5 10^3/uL (4.0-10.0)
[2021-06-18 07:17] LABS: BLOOD UREA NITROGEN 6 MG/DL (7-18); CALCIUM LEVEL 8.6 MG/DL (8.5-10.1); CARBON DIOXIDE LEVEL 27 MEQ/L (21-32); CHLORIDE LEVEL 108 MEQ/L (98-107); CREATININE FOR GFR 1.03 MG/DL (0.55-1.30); GLOMERULAR FILTRATION RATE > 60.0 (>58); GLUCOSE, FASTING 94 MG/DL (70-100); POTASSIUM SERUM 3.1 MEQ/L (3.5-5.1); SODIUM LEVEL 141 MEQ/L (136-145)
[2021-06-18] MEDS: LEVEMIR (INSULIN DETEMIR) 1 UNITS/0.01ML SC SCH (08:11)
[2021-06-18] MEDS: BISACODYL 10 MG SUPP PR SCH (08:26)
[2021-06-18] MEDS: DOCUSATE SODIUM 100MG CAPSULE PO SCH ×2 (08:26→21:00)
[2021-06-18] MEDS: SENNA 8.6 MG TAB (SENOKOT) PO SCH ×2 (08:26→21:00)
[2021-06-18] MEDS: PANTOPRAZOLE 40MG VIAL (C9113 PER 1) IV SCH (08:29)
[2021-06-18] MEDS: SUCRALFATE SUSP 1GM/10ML UD PO SCH ×4 (08:29→21:00)
[2021-06-18] MEDS: POTASSIUM CHLORIDE 10MEQ SR TABLET PO ONE ×2 (11:10→13:33)
[2021-06-18 14:00] VITALS: BP 162/89
[2021-06-18] MEDS: MORPHINE 4 MG/ML 1ML VIAL/SYRINGE (J2270) IV PRN (16:15)
[2021-06-18 20:14] VITALS: BP 131/74
[2021-06-18] MEDS: METOCLOPRAMIDE INJ 10MG/2ML VIAL (J2765 PER 1) IV PRN (20:56)
[2021-06-18] MEDS: DEXTROSE 50% 50 ML SYRINGE IV PRN (21:30)
[2021-06-19] MEDS: HumaLOG INSULIN (NovoLOG) PER UNIT SC SCH ×5 (04:00→16:00)
[2021-06-19] MEDS: SODIUM CHLORIDE 0.9% INJ 10 ML SYR IV SCH ×2 (04:53→14:00)
[2021-06-19 06:01] VITALS: BP 148/84
[2021-06-19] MEDS: DOCUSATE SODIUM 100MG CAPSULE PO SCH (09:00)
[2021-06-19] MEDS ORDERED: POTASSIUM CHLORIDE 10MEQ SR TABLET PO SCH ×2 (09:00)
[2021-06-19] MEDS: BISACODYL 10 MG SUPP PR SCH (09:00)
[2021-06-19] MEDS: SENNA 8.6 MG TAB (SENOKOT) PO SCH (09:00)
[2021-06-19] MEDS: LEVEMIR (INSULIN DETEMIR) 1 UNITS/0.01ML SC SCH (09:00)
[2021-06-19 10:00] LABS: BLOOD UREA NITROGEN 7 MG/DL (7-18); CALCIUM LEVEL 8.9 MG/DL (8.5-10.1); CARBON DIOXIDE LEVEL 22 MEQ/L (21-32); CHLORIDE LEVEL 99 MEQ/L (98-107); CREATININE FOR GFR 1.05 MG/DL (0.55-1.30); GLOMERULAR FILTRATION RATE > 60.0 (>58); GLUCOSE, FASTING 362 MG/DL (70-100); MAGNESIUM LEVEL 1.2 MG/DL (1.8-2.4); POTASSIUM SERUM 3.6 MEQ/L (3.5-5.1); SODIUM LEVEL 135 MEQ/L (136-145)
[2021-06-19] MEDS: PANTOPRAZOLE 40MG VIAL (C9113 PER 1) IV SCH (10:21)
[2021-06-19] MEDS: MAG SULF 1GM/100ML (MAG RUN) 1 GM in IV 1 EA IV SCH ×2 (10:52→10:56)
[2021-06-19] MEDS ORDERED: METOCLOPRAMIDE INJ 10MG/2ML VIAL (J2765 PER 1) IV SCH (11:00)
[2021-06-19] MEDS: GASTROGRAFIN SOLUTION 30ML PO SCH ×2 (11:15→11:23)
[2021-06-19] MEDS: SUCRALFATE SUSP 1GM/10ML UD PO SCH ×2 (12:00→12:44)
[2021-06-19 14:00] VITALS: BP 111/73
[2021-06-19] MEDS ORDERED: LEVE1INJ5 SC (14:33)
[2021-06-19] MEDS ORDERED: REGL5TAB2 PO (14:36)
[2021-06-19 15:40] LABS: BILIRUBIN,TOTAL 0.5 MG/DL (0.2-1.0); CALCIUM LEVEL 9.4 MG/DL (8.5-10.1); CREATININE FOR GFR 1.54 MG/DL (0.55-1.30); GLOMERULAR FILTRATION RATE 46.4 (>58); MAGNESIUM LEVEL 2.1 MG/DL (1.8-2.4); POTASSIUM SERUM 2.9 MEQ/L (3.5-5.1)
[2021-06-19] MEDS ORDERED: POTASSIUM CHLORIDE 10MEQ SR TABLET PO ONE (15:45)
[2021-06-19] MEDS ORDERED: BASA100I SC (15:46)
[2021-06-19] MEDS ORDERED: POTA1TAB14 PO (15:47)
[2021-06-19] MEDS ORDERED: KCL 10MEQ/100ML SWI (KRUN) 10 MEQ in IV 1 EA IV SCH (16:00)
== END 2021-06-19 16:40 | disposition left against medical advice (07) | DRG 420 ==
LOC: M ED 14:03 → EDBD 14:03 → M ED INP 16:40 → M ICU 22:57 → M PCU 06-13 17:41 → M MSPAV 06-14 23:35
PROVIDERS: ADMIT Internal Medicine; ATTEND General Practice
PROC: 05HN33Z Insertion of Infusion Device into Left Internal Jugular Vein, Percutaneous Approach (ICD-10-PCS; principal; 2021-06-12)
DX: E10.10 Type 1 diabetes mellitus with ketoacidosis without coma (principal); N17.9 Acute kidney failure, unspecified; E10.43 Type 1 diabetes mellitus with diabetic autonomic (poly)neuropathy; N18.30 Chronic kidney disease, stage 3 unspecified; E83.42 Hypomagnesemia; Z79.4 Long term (current) use of insulin; Z79.899 Other long term (current) drug therapy; Z87.891 Personal history of nicotine dependence; Z20.822 Contact with and (suspected) exposure to COVID-19; K21.9 Gastro-esophageal reflux disease without esophagitis; E10.65 Type 1 diabetes mellitus with hyperglycemia; Z91.19 Patient's noncompliance with other medical treatment and regimen; E87.6 Hypokalemia; Z91.14 Patient's other noncompliance with medication regimen; K29.70 Gastritis, unspecified, without bleeding; J44.9 Chronic obstructive pulmonary disease, unspecified

== ENCOUNTER 2021-09-05 22:20 | Inpatient (IN) | payer OTHER ==
[~2021-09-05] VITALS: Ht 170.2 cm; Wt 69.0 kg
[~2021-09-05 22:20] MED LIST changes: +POTA1TAB14 PO; +SUCR1TA PO
[2021-09-05] MEDS ORDERED: NS 1,000 ML IV ONE (22:50)
[2021-09-05 23:00] LABS: VENOUS BASE EXCESS -6.3 (-2.0-2.0); VENOUS HCO3 17.1 MEQ/L (23.0-27.0); VENOUS O2 SATURATION 87.8 % (60.0-80.0); VENOUS PARTIAL PRESSURE CO2 28.1 mmHg (38.0-50.0); VENOUS PARTIAL PRESSURE O2 55.2 mmHg (30.0-50.0); VENOUS PH 7.401 UNITS (7.330-7.430); VENOUS STANDARD HCO3 19.2 MEQ/L; VENOUS TOTAL CO2 17.9 MEQ/L (24.0-28.0)
[2021-09-05 23:05] LABS: BASO # 0.1 10^3/uL (0.0-0.2); BASO % 0.7 % (0.0-1.0); EOS % 0.5 % (0.0-3.0); HEMATOCRIT 35.5 % (36.0-47.0); HEMOGLOBIN 12.1 g/dl (12.0-15.5); LYMPH # 1.8 10^3/uL (1.5-5.0); LYMPH % 24.9 % (24.0-44.0); MEAN CORPUSCULAR HGB CONC 34.1 g/dl (32.0-36.5); MEAN CORPUSCULAR VOLUME 85.1 fl (80.0-96.0); MONO # 0.6 10^3/uL (0.0-0.8); MONO % 7.6 % (2.0-8.0); NEUTROPHILS # 4.8 10^3/uL (1.5-8.5); PLATELET COUNT, AUTOMATED 317 10^3/uL (150-450); RED BLOOD COUNT 4.17 10^6/uL (4.00-5.40); WHITE BLOOD COUNT 7.3 10^3/uL (4.0-10.0)
[2021-09-05] MEDS ORDERED: MORPHINE 4 MG/ML 1ML VIAL/SYRINGE IV PRN (23:05)
[2021-09-05] MEDS ORDERED: ONDANSETRON 4MG/2ML VIAL IV ONE (23:05)
[2021-09-05 23:22] LABS: CK-MB VALUE MASS < 1.0 NG/ML (<3.6); CPK CREATINE PHOSPHOKINASE 36 U/L (26-192); MB/CK RELATIVE INDEX 2.78 (< OR =4)
[2021-09-05 23:27] LABS: OSMOLALITY SERUM 298 MOSM/KG (275-295)
[2021-09-05 23:36] LABS: ACETONE/KETONE > 46.00 MG/DL (<2.81); ALBUMIN 4.1 GM/DL (3.2-5.2); ALT/SGPT 24 U/L (12-78); BILIRUBIN,DIRECT 0.4 MG/DL (0.0-0.2); BILIRUBIN,TOTAL 1.5 MG/DL (0.2-1.0); BLOOD UREA NITROGEN 31 MG/DL (7-18); CALCIUM LEVEL 9.7 MG/DL (8.5-10.1); CARBON DIOXIDE LEVEL 16 MEQ/L (21-32); CHLORIDE LEVEL 95 MEQ/L (98-107); CREATININE FOR GFR 1.42 MG/DL (0.55-1.30); GLOMERULAR FILTRATION RATE 50.7 (>58); GLUCOSE, FASTING 329 MG/DL (70-100); LIPASE 81 U/L (73-393); MAGNESIUM LEVEL 1.7 MG/DL (1.8-2.4); POTASSIUM SERUM 4.3 MEQ/L (3.5-5.1); SODIUM LEVEL 131 MEQ/L (136-145); TOTAL PROTEIN 7.8 GM/DL (6.4-8.2)
[2021-09-05 23:39] LABS: HEMOGLOBIN A1c 8.4 %
[2021-09-06] MEDS ORDERED: HumuLIN R (REGULAR) INSULIN (NovoLIN R) **100U/ML** PER UNIT IV ONE (00:40)
[2021-09-06 01:26] LABS: RSV AMPLIFICATION NEGATIVE (NEGATIVE)
[2021-09-06] MEDS ORDERED: MOM 30ML SUSPENSION UDC PO PRN (02:05)
[2021-09-06] MEDS ORDERED: MORPHINE 2 MG/ML 1ML VIAL IV PRN (02:05)
[2021-09-06] MEDS ORDERED: ACETAMINOPHEN TAB 650MG DOSE (2X325MG) PO PRN (02:05)
[2021-09-06] MEDS: LR 1,000 ML IV SCH ×2 (02:15→11:36)
[2021-09-06] MEDS ORDERED: BASA100I SC (02:19)
[2021-09-06] MEDS ORDERED: VITMTA PO (02:19)
[2021-09-06] MEDS ORDERED: HOME MED LIST COMPLETE! XX SCH (02:20)
[2021-09-06] MEDS: METOCLOPRAMIDE INJ 10MG/2ML VIAL (J2765 PER 1) IV SCH ×4 (02:52→20:36)
[2021-09-06] MEDS ORDERED: ONDANSETRON 4MG/2ML VIAL IV PRN (03:00)
[2021-09-06] MEDS: HEPARIN SOD (PORCINE) 5000UNITS/ML 1ML VIAL/SYRINGE SC SCH ×3 (06:00→21:45)
[2021-09-06] MEDS ORDERED: GLUCOSE 4GM CHEW TABLET PO PRN (07:30)
[2021-09-06] MEDS ORDERED: GLUCAGON INJ 1MG VIAL SC PRN (07:30)
[2021-09-06] MEDS ORDERED: DEXTROSE 50% 50 ML SYRINGE IV PRN (07:30)
[2021-09-06 07:55] LABS: HEMATOCRIT 30.1 % (36.0-47.0); MEAN CORPUSCULAR HEMOGLOBIN 28.8 pg (27.0-33.0); MEAN CORPUSCULAR HGB CONC 33.6 g/dl (32.0-36.5); MEAN CORPUSCULAR VOLUME 85.8 fl (80.0-96.0); PLATELET COUNT, AUTOMATED 253 10^3/uL (150-450); RED BLOOD COUNT 3.51 10^6/uL (4.00-5.40); WHITE BLOOD COUNT 6.4 10^3/uL (4.0-10.0)
[2021-09-06 07:56] LABS: HEMOGLOBIN 10.1 g/dl (12.0-15.5)
[2021-09-06 08:45] LABS: ALBUMIN 3.2 GM/DL (3.2-5.2); ALT/SGPT 18 U/L (12-78); BILIRUBIN,TOTAL 1.1 MG/DL (0.2-1.0); BLOOD UREA NITROGEN 26 MG/DL (7-18); CALCIUM LEVEL 8.5 MG/DL (8.5-10.1); CARBON DIOXIDE LEVEL 20 MEQ/L (21-32); CHLORIDE LEVEL 103 MEQ/L (98-107); GLOMERULAR FILTRATION RATE > 60.0 (>58); GLUCOSE, FASTING 164 MG/DL (70-100); POTASSIUM SERUM 4.2 MEQ/L (3.5-5.1); SODIUM LEVEL 136 MEQ/L (136-145); TOTAL PROTEIN 6.1 GM/DL (6.4-8.2)
[2021-09-06] MEDS: INSULIN LISPRO (NovoLOG) PER UNIT SC SCH ×3 (09:50→17:40)
[2021-09-06 12:14] LABS: BLOOD UREA NITROGEN 24 MG/DL (7-18); CALCIUM LEVEL 8.7 MG/DL (8.5-10.1); CARBON DIOXIDE LEVEL 20 MEQ/L (21-32); CHLORIDE LEVEL 103 MEQ/L (98-107); CREATININE FOR GFR 1.21 MG/DL (0.55-1.30); GLOMERULAR FILTRATION RATE > 60.0 (>58); GLUCOSE, FASTING 198 MG/DL (70-100); SODIUM LEVEL 135 MEQ/L (136-145)
[2021-09-06 14:00] VITALS: BP 113/76
[2021-09-06 15:58] VITALS: BP 115/79
[2021-09-06 16:38] LABS: CREATININE FOR GFR 1.25 MG/DL (0.55-1.30); GLOMERULAR FILTRATION RATE 58.8 (>58); POTASSIUM SERUM 3.4 MEQ/L (3.5-5.1)
[2021-09-06 16:39] LABS: CALCIUM LEVEL 8.7 MG/DL (8.5-10.1)
[2021-09-06 19:35] VITALS: BP 130/94
[2021-09-06] MEDS ORDERED: POTASSIUM CHLORIDE 10MEQ SR TABLET PO ONE (20:00)
[2021-09-06 20:37] LABS: BLOOD UREA NITROGEN 22 MG/DL (7-18); CALCIUM LEVEL 8.6 MG/DL (8.5-10.1); CARBON DIOXIDE LEVEL 24 MEQ/L (21-32); CHLORIDE LEVEL 105 MEQ/L (98-107); CREATININE FOR GFR 1.22 MG/DL (0.55-1.30); GLOMERULAR FILTRATION RATE > 60.0 (>58); GLUCOSE, FASTING 133 MG/DL (70-100); POTASSIUM SERUM 4.2 MEQ/L (3.5-5.1); SODIUM LEVEL 136 MEQ/L (136-145)
[2021-09-06] MEDS ORDERED: INSULIN LISPRO (NovoLOG) PER UNIT SC SCH (21:00)
[2021-09-06] MEDS ORDERED: LEVEMIR (INSULIN DETEMIR) 1 UNITS/0.01ML SC SCH (21:00)
[2021-09-06 21:09] VITALS: BP 139/92
[2021-09-06 21:30] VITALS: BP 119/69
[2021-09-07] VITALS: BP 121/70
[2021-09-07] MEDS ORDERED: POLYVINYL ALCOHOL OPHTH SOLN 15 ML(LIQUITEARS) OD ONE
[2021-09-07] MEDS: METOCLOPRAMIDE INJ 10MG/2ML VIAL (J2765 PER 1) IV SCH ×2 (03:00→09:00)
[2021-09-07 04:00] VITALS: BP 116/69
[2021-09-07] MEDS: HEPARIN SOD (PORCINE) 5000UNITS/ML 1ML VIAL/SYRINGE SC SCH (05:30)
[2021-09-07 06:50] LABS: HEMATOCRIT 35.6 % (36.0-47.0); HEMOGLOBIN 11.6 g/dl (12.0-15.5); MEAN CORPUSCULAR HEMOGLOBIN 29.3 pg (27.0-33.0); MEAN CORPUSCULAR HGB CONC 32.6 g/dl (32.0-36.5); MEAN CORPUSCULAR VOLUME 89.9 fl (80.0-96.0); PLATELET COUNT, AUTOMATED 247 10^3/uL (150-450); RED BLOOD COUNT 3.96 10^6/uL (4.00-5.40); WHITE BLOOD COUNT 5.4 10^3/uL (4.0-10.0)
[2021-09-07 07:04] LABS: BLOOD UREA NITROGEN 17 MG/DL (7-18); CALCIUM LEVEL 9.4 MG/DL (8.5-10.1); CARBON DIOXIDE LEVEL 21 MEQ/L (21-32); CHLORIDE LEVEL 108 MEQ/L (98-107); CREATININE FOR GFR 1.04 MG/DL (0.55-1.30); GLOMERULAR FILTRATION RATE > 60.0 (>58); GLUCOSE, FASTING 35 MG/DL (70-100); POTASSIUM SERUM 3.1 MEQ/L (3.5-5.1); SODIUM LEVEL 138 MEQ/L (136-145)
[2021-09-07] MEDS ORDERED: POTASSIUM CHLORIDE 10MEQ SR TABLET PO ONE (07:30)
[2021-09-07] MEDS: INSULIN LISPRO (NovoLOG) PER UNIT SC SCH (07:30)
[2021-09-07 07:43] VITALS: BP 110/68
[2021-09-07] MEDS ORDERED: POTASSIUM CHLORIDE 10% LIQ 20 MEQ/15 ML UDC PO ONE (08:35)
[2021-09-07] MEDS ORDERED: BASA100I SC (08:41)
[2021-09-07] MEDS ORDERED: LEVEMIR (INSULIN DETEMIR) 1 UNITS/0.01ML SC SCH (21:00)
== END 2021-09-07 10:20 | disposition home or self-care (01) | DRG 420 ==
LOC: M ED 22:20 → M ED INP 09-06 02:02 → ENRESERV 09-06 12:29 → M PCU 09-06 13:47
PROVIDERS: ADMIT Family Medicine; ATTEND Internal Medicine
DX: E10.65 Type 1 diabetes mellitus with hyperglycemia (principal); E10.649 Type 1 diabetes mellitus with hypoglycemia without coma; E10.22 Type 1 diabetes mellitus with diabetic chronic kidney disease; K31.84 Gastroparesis; E10.43 Type 1 diabetes mellitus with diabetic autonomic (poly)neuropathy; N18.30 Chronic kidney disease, stage 3 unspecified; R11.2 Nausea with vomiting, unspecified; Z79.4 Long term (current) use of insulin; Z79.899 Other long term (current) drug therapy

== ENCOUNTER 2021-09-10 09:00 | Emergency (ER) | payer OTHER ==
[~2021-09-10] VITALS: Ht 170.2 cm; Wt 69.9 kg
[2021-09-10] MEDS ORDERED: NS 1,000 ML IV ONE ×2 (09:25→13:40)
[2021-09-10] MEDS ORDERED: METOCLOPRAMIDE INJ 10MG/2ML VIAL (J2765 PER 1) IV ONE (10:05)
[2021-09-10 10:14] LABS: VENOUS BASE EXCESS 2.2 (-2.0-2.0); VENOUS HCO3 26.7 MEQ/L (23.0-27.0); VENOUS O2 SATURATION 88.8 % (60.0-80.0); VENOUS PARTIAL PRESSURE O2 55.3 mmHg (30.0-50.0); VENOUS PH 7.431 UNITS (7.330-7.430); VENOUS STANDARD HCO3 26.3 MEQ/L; VENOUS TOTAL CO2 27.9 MEQ/L (24.0-28.0)
[2021-09-10 11:04] LABS: ACETONE/KETONE 0.82 MG/DL (<2.81); ALBUMIN 3.7 GM/DL (3.2-5.2); ALT/SGPT 27 U/L (12-78); BILIRUBIN,DIRECT < 0.1 MG/DL (0.0-0.2); BILIRUBIN,TOTAL 0.3 MG/DL (0.2-1.0); LIPASE 109 U/L (73-393); OSMOLALITY SERUM 286 MOSM/KG (275-295); TOTAL PROTEIN 6.4 GM/DL (6.4-8.2)
[2021-09-10] MEDS ORDERED: ONDANSETRON 4MG/2ML VIAL IV ONE (11:15)
[2021-09-10 11:20] LABS: BASO % 0.3 % (0.0-1.0); EOS # 0.1 10^3/uL (0.0-0.5); EOS % 1.5 % (0.0-3.0); HEMATOCRIT 26.9 % (36.0-47.0); HEMOGLOBIN 9.2 g/dl (12.0-15.5); LYMPH # 1.6 10^3/uL (1.5-5.0); LYMPH % 26.6 % (24.0-44.0); MEAN CORPUSCULAR HEMOGLOBIN 29.4 pg (27.0-33.0); MEAN CORPUSCULAR HGB CONC 34.2 g/dl (32.0-36.5); MEAN CORPUSCULAR VOLUME 85.9 fl (80.0-96.0); MONO # 0.5 10^3/uL (0.0-0.8); MONO % 7.7 % (2.0-8.0); NEUTROPHILS # 3.8 10^3/uL (1.5-8.5); NEUTROPHILS % 63.7 % (36.0-66.0); PLATELET COUNT, AUTOMATED 223 10^3/uL (150-450); RED BLOOD COUNT 3.13 10^6/uL (4.00-5.40); WHITE BLOOD COUNT 5.9 10^3/uL (4.0-10.0)
[2021-09-10] MEDS: MORPHINE 2 MG/ML 1ML VIAL IV PRN ×2 (11:32→12:30)
[2021-09-10 11:37] LABS: HEMOGLOBIN A1c 8.5 %
[2021-09-10 12:06] LABS: HCG, SERUM QUALITATIVE NEGATIVE (NEGATIVE)
[2021-09-10] MEDS ORDERED: ISOVUE-370 76% 100ML VIAL As Ordered ONE (12:51)
[2021-09-10] MEDS ORDERED: HALOPERIDOL 5MG/ML VIAL (J1630 PER 1) IV ONE (13:40)
[2021-09-10] MEDS ORDERED: HumuLIN R (REGULAR) INSULIN (NovoLIN R) **100U/ML** PER UNIT SC STA (15:13)
[2021-09-10] MEDS ORDERED: ONDA4TAB6 PO (15:38)
[2021-09-10 16:01] VITALS: BP 160/83
== END 2021-09-10 16:21 | disposition home or self-care (01) ==
LOC: M ED 09:00
DX: K31.84 Gastroparesis (principal); R11.10 Vomiting, unspecified; E10.9 Type 1 diabetes mellitus without complications; Z79.4 Long term (current) use of insulin; Z79.899 Other long term (current) drug therapy
CPT/HCPCS: 74177; 80047; 80076; 82010; 82803; 83036; 83690; 83930; 84703; 85025; 87040; 87486; 87581; 87633; 87798; 93005; 93041; 94760; 96361; 96374; 96375; 99285; J1630; J2270; J2405; J2765; Q9967

== ENCOUNTER 2021-09-18 12:04 | Emergency (ER) | payer OTHER ==
[~2021-09-18] VITALS: Ht 170.2 cm; Wt 66.7 kg
[2021-09-18] MEDS ORDERED: METO5TAB2 (12:10)
[2021-09-18] MEDS ORDERED: POTA1TAB14 (12:10)
[2021-09-18] MEDS ORDERED: MORPHINE 2 MG/ML 1ML VIAL IV ONE (13:25)
[2021-09-18] MEDS ORDERED: NS 1,000 ML IV ONE (13:25)
[2021-09-18] MEDS ORDERED: METOCLOPRAMIDE INJ 10MG/2ML VIAL (J2765 PER 1) IV ONE (13:25)
[2021-09-18 13:38] LABS: BASO # 0.1 10^3/uL (0.0-0.2); BASO % 0.6 % (0.0-1.0); EOS # 0.1 10^3/uL (0.0-0.5); HEMATOCRIT 31.6 % (36.0-47.0); HEMOGLOBIN 10.6 g/dl (12.0-15.5); LYMPH # 1.8 10^3/uL (1.5-5.0); LYMPH % 22.5 % (24.0-44.0); MEAN CORPUSCULAR HEMOGLOBIN 28.8 pg (27.0-33.0); MEAN CORPUSCULAR HGB CONC 33.5 g/dl (32.0-36.5); MEAN CORPUSCULAR VOLUME 85.9 fl (80.0-96.0); MONO # 0.7 10^3/uL (0.0-0.8); MONO % 8.3 % (2.0-8.0); NEUTROPHILS # 5.3 10^3/uL (1.5-8.5); NEUTROPHILS % 67.5 % (36.0-66.0); PLATELET COUNT, AUTOMATED 363 10^3/uL (150-450); RED BLOOD COUNT 3.68 10^6/uL (4.00-5.40); WHITE BLOOD COUNT 7.9 10^3/uL (4.0-10.0)
[2021-09-18 14:11] LABS: ALT/SGPT 17 U/L (12-78); BILIRUBIN,TOTAL 0.5 MG/DL (0.2-1.0); BLOOD UREA NITROGEN 19 MG/DL (7-18); CALCIUM LEVEL 9.9 MG/DL (8.5-10.1); CARBON DIOXIDE LEVEL 24 MEQ/L (21-32); CHLORIDE LEVEL 103 MEQ/L (98-107); CREATININE FOR GFR 1.17 MG/DL (0.55-1.30); GLOMERULAR FILTRATION RATE > 60.0 (>58); GLUCOSE, FASTING 142 MG/DL (70-100); POTASSIUM SERUM 3.8 MEQ/L (3.5-5.1); SODIUM LEVEL 137 MEQ/L (136-145); TOTAL PROTEIN 7.1 GM/DL (6.4-8.2)
[2021-09-18 14:21] LABS: VENOUS BASE EXCESS -1.2 (-2.0-2.0); VENOUS HCO3 24.4 MEQ/L (23.0-27.0); VENOUS O2 SATURATION 84.8 % (60.0-80.0); VENOUS PARTIAL PRESSURE CO2 44.5 mmHg (38.0-50.0); VENOUS PARTIAL PRESSURE O2 52.7 mmHg (30.0-50.0); VENOUS PH 7.357 UNITS (7.330-7.430); VENOUS STANDARD HCO3 23.2 MEQ/L; VENOUS TOTAL CO2 25.8 MEQ/L (24.0-28.0)
[2021-09-18 14:45] LABS: HEMOGLOBIN A1c 8.5 %
[2021-09-18 14:47] LABS: OSMOLALITY SERUM 286 MOSM/KG (275-295)
[2021-09-18 14:53] LABS: ACETONE/KETONE 24.62 MG/DL (<2.81); ETHYL ALCOHOL (ETHANOL) < 0.003 % (0.000-0.010); LIPASE 300 U/L (73-393); MAGNESIUM LEVEL 1.5 MG/DL (1.8-2.4); PHOSPHORUS LEVEL 2.8 MG/DL (2.5-4.9)
[2021-09-18] MEDS ORDERED: MAG SULF 1GM/100ML (MAG RUN) 1 GM in IV 1 EA IV ONE (15:05)
[2021-09-18 17:41] LABS: AMPHETAMINES LEVEL URINE NEGATIVE (NEGATIVE); BARBITURATES URINE NEGATIVE (NEGATIVE); BENZODIAZEPINES URINE NEGATIVE (NEGATIVE); CANNABINOIDS URINE POSITIVE (NEGATIVE); COCAINE METABOLITE URINE NEGATIVE (NEGATIVE); METHADONE URINE NEGATIVE (NEGATIVE); OPIATES URINE POSITIVE (NEGATIVE); PHENCYCLIDINE URINE NEGATIVE (NEGATIVE)
[2021-09-18 18:46] VITALS: BP 131/77
== END 2021-09-18 18:50 | disposition home or self-care (01) ==
LOC: M ED 12:04
DX: R10.9 Unspecified abdominal pain (principal); R11.2 Nausea with vomiting, unspecified; R51.9 Headache, unspecified; R42 Dizziness and giddiness; E11.9 Type 2 diabetes mellitus without complications; K21.9 Gastro-esophageal reflux disease without esophagitis; J45.909 Unspecified asthma, uncomplicated; N18.30 Chronic kidney disease, stage 3 unspecified; F12.188 Cannabis abuse with other cannabis-induced disorder; F19.10 Other psychoactive substance abuse, uncomplicated; Z79.4 Long term (current) use of insulin; Z79.899 Other long term (current) drug therapy
CPT/HCPCS: 80053; 80307; 81001; 82010; 82077; 82803; 83036; 83605; 83690; 83735; 83930; 84100; 84702; 85025; 96361; 96365; 96375; 99284; J2270; J2765; J3475

== ENCOUNTER 2021-10-04 17:51 | Emergency (ER) | payer OTHER ==
[~2021-10-04] VITALS: Ht 170.2 cm; Wt 70.0 kg
[~2021-10-04 17:51] MED LIST changes: +POTA1TAB14
[2021-10-04 18:30] LABS: VENOUS BASE EXCESS 0.9 (-2.0-2.0); VENOUS HCO3 25.5 MEQ/L (23.0-27.0); VENOUS O2 SATURATION 72.5 % (60.0-80.0); VENOUS PARTIAL PRESSURE CO2 40.9 mmHg (38.0-50.0); VENOUS PARTIAL PRESSURE O2 36.7 mmHg (30.0-50.0); VENOUS PH 7.413 UNITS (7.330-7.430); VENOUS STANDARD HCO3 24.7 MEQ/L; VENOUS TOTAL CO2 26.8 MEQ/L (24.0-28.0)
[2021-10-04] MEDS ORDERED: ONDANSETRON 4MG 2ML VIAL IV ONE (18:30)
[2021-10-04] MEDS ORDERED: NS 1,000 ML IV ONE (18:30)
[2021-10-04 18:38] LABS: BASO # 0.1 10^3/uL (0.0-0.2); BASO % 0.7 % (0.0-1.0); EOS # 0.1 10^3/uL (0.0-0.5); HEMOGLOBIN 11.3 g/dl (12.0-15.5); LYMPH # 1.9 10^3/uL (1.5-5.0); LYMPH % 28.3 % (24.0-44.0); MEAN CORPUSCULAR HEMOGLOBIN 28.5 pg (27.0-33.0); MEAN CORPUSCULAR HGB CONC 33.2 g/dl (32.0-36.5); MEAN CORPUSCULAR VOLUME 85.9 fl (80.0-96.0); MONO # 0.4 10^3/uL (0.0-0.8); NEUTROPHILS # 4.4 10^3/uL (1.5-8.5); NEUTROPHILS % 63.9 % (36.0-66.0); PLATELET COUNT, AUTOMATED 291 10^3/uL (150-450); RED BLOOD COUNT 3.96 10^6/uL (4.00-5.40); WHITE BLOOD COUNT 6.8 10^3/uL (4.0-10.0)
[2021-10-04 19:12] LABS: CK-MB VALUE MASS < 1.0 NG/ML (<3.6); CPK CREATINE PHOSPHOKINASE 249 U/L (26-192)
[2021-10-04] MEDS ORDERED: KETOROLAC 30 MG/ML 1ML VIAL IV ONE (20:35)
[2021-10-04] MEDS ORDERED: PROMETHAZINE 25MG/ML 1ML VIAL IV ONE (20:40)
[2021-10-04 20:57] LABS: ALT/SGPT 14 U/L (12-78); BILIRUBIN,DIRECT < 0.1 MG/DL (0.0-0.2); BILIRUBIN,TOTAL 0.7 MG/DL (0.2-1.0); BLOOD UREA NITROGEN 16 MG/DL (7-18); CALCIUM LEVEL 10.1 MG/DL (8.5-10.1); CARBON DIOXIDE LEVEL 21 MEQ/L (21-32); CHLORIDE LEVEL 105 MEQ/L (98-107); CREATININE FOR GFR 0.84 MG/DL (0.55-1.30); GLOMERULAR FILTRATION RATE > 60.0 (>58); GLUCOSE, FASTING 234 MG/DL (70-100); LIPASE 93 U/L (73-393); POTASSIUM SERUM 4.8 MEQ/L (3.5-5.1); SODIUM LEVEL 135 MEQ/L (136-145); TOTAL PROTEIN 6.9 GM/DL (6.4-8.2)
[2021-10-04] MEDS ORDERED: HALOPERIDOL 5MG/ML VIAL (J1630 PER 1) IV ONE (21:10)
[2021-10-04] MEDS ORDERED: PROM50TA4 PO (22:21)
[2021-10-04 22:28] LABS: AMPHETAMINES LEVEL URINE NEGATIVE (NEGATIVE); BARBITURATES URINE NEGATIVE (NEGATIVE); BENZODIAZEPINES URINE NEGATIVE (NEGATIVE); CANNABINOIDS URINE POSITIVE (NEGATIVE); COCAINE METABOLITE URINE NEGATIVE (NEGATIVE); METHADONE URINE NEGATIVE (NEGATIVE); OPIATES URINE NEGATIVE (NEGATIVE); PHENCYCLIDINE URINE NEGATIVE (NEGATIVE)
[2021-10-04 22:37] VITALS: BP 150/80
== END 2021-10-04 22:45 | disposition home or self-care (01) ==
LOC: M ED 17:51 → EDBD 17:51 → M ED 22:45
DX: R11.15 Cyclical vomiting syndrome unrelated to migraine (principal); E11.9 Type 2 diabetes mellitus without complications; I10 Essential (primary) hypertension
CPT/HCPCS: 80048; 80076; 80307; 81001; 82550; 82553; 82803; 83605; 83690; 85025; 87040; 93005; 93041; 96361; 96374; 96375; 99284; J1630; J1885; J2405; J2550

== ENCOUNTER 2021-12-03 21:03 | Inpatient (IN) | payer OTHER ==
[~2021-12-03 21:03] MED LIST changes: +PROM50TA4 PO; +SIMV-253 PO; -ZOCO20TA PO
[2021-12-03] MEDS ORDERED: NS 1,000 ML IV ONE (21:10)
[2021-12-03] MEDS ORDERED: ONDANSETRON 4MG 2ML VIAL IV ONE (21:25)
[2021-12-03 21:52] LABS: VENOUS BASE EXCESS 4.6 (-2.0-2.0); VENOUS HCO3 27.6 MEQ/L (23.0-27.0); VENOUS O2 SATURATION 57.7 % (60.0-80.0); VENOUS PARTIAL PRESSURE CO2 35.7 mmHg (38.0-50.0); VENOUS PH 7.506 UNITS (7.330-7.430); VENOUS STANDARD HCO3 27.6 MEQ/L; VENOUS TOTAL CO2 28.7 MEQ/L (24.0-28.0)
[2021-12-03 22:13] LABS: RSV AMPLIFICATION NEGATIVE (NEGATIVE)
[2021-12-03] MEDS ORDERED: ISOVUE-370 76% 100ML VIAL As Ordered ONE (22:26)
[2021-12-03 23:30] LABS: BASO % 0.4 % (0.0-1.0); EOS % 0.1 % (0.0-3.0); HEMATOCRIT 34.1 % (36.0-47.0); HEMOGLOBIN 11.9 g/dl (12.0-15.5); LYMPH # 1.1 10^3/uL (1.5-5.0); LYMPH % 10.8 % (24.0-44.0); MEAN CORPUSCULAR HEMOGLOBIN 29.5 pg (27.0-33.0); MEAN CORPUSCULAR HGB CONC 34.9 g/dl (32.0-36.5); MEAN CORPUSCULAR VOLUME 84.4 fl (80.0-96.0); MONO # 0.8 10^3/uL (0.0-0.8); MONO % 7.5 % (2.0-8.0); NEUTROPHILS # 8.1 10^3/uL (1.5-8.5); NEUTROPHILS % 80.9 % (36.0-66.0); PLATELET COUNT, AUTOMATED 311 10^3/uL (150-450); RED BLOOD COUNT 4.04 10^6/uL (4.00-5.40); WHITE BLOOD COUNT 10.1 10^3/uL (4.0-10.0)
[2021-12-03 23:47] LABS: HEMOGLOBIN A1c 8.4 %
[2021-12-04 00:03] LABS: OSMOLALITY SERUM 312 MOSM/KG (275-295)
[2021-12-04 00:15] LABS: CK-MB VALUE MASS < 1.0 NG/ML (<3.6); CPK CREATINE PHOSPHOKINASE 74 U/L (26-192); MB/CK RELATIVE INDEX 1.35 (< OR =4)
[2021-12-04] MEDS ORDERED: PROMETHAZINE 25MG/ML 1ML VIAL IV ONE (00:20)
[2021-12-04 00:22] LABS: ALBUMIN 4.2 GM/DL (3.2-5.2); ALT/SGPT 22 U/L (12-78); BILIRUBIN,DIRECT 0.5 MG/DL (0.0-0.2); BILIRUBIN,TOTAL 1.2 MG/DL (0.2-1.0); BLOOD UREA NITROGEN 62 MG/DL (7-18); CALCIUM LEVEL 9.2 MG/DL (8.5-10.1); CARBON DIOXIDE LEVEL 25 MEQ/L (21-32); CHLORIDE LEVEL 98 MEQ/L (98-107); CREATININE FOR GFR 1.87 MG/DL (0.55-1.30); GLOMERULAR FILTRATION RATE 36.9 (>58); GLUCOSE, FASTING 184 MG/DL (70-100); POTASSIUM SERUM 3.3 MEQ/L (3.5-5.1); SODIUM LEVEL 136 MEQ/L (136-145); TOTAL PROTEIN 7.9 GM/DL (6.4-8.2)
[2021-12-04 00:23] LABS: ACETONE/KETONE > 46.00 MG/DL (<2.81); ETHYL ALCOHOL (ETHANOL) < 0.003 % (0.000-0.010); LIPASE 81 U/L (73-393); MAGNESIUM LEVEL 2.1 MG/DL (1.8-2.4)
[2021-12-04] MEDS ORDERED: NS 1,000 ML IV ONE (00:40)
[2021-12-04] MEDS ORDERED: PROM50TA4 PO (02:58)
[2021-12-04] MEDS ORDERED: BASA100I SC (02:58)
[2021-12-04] MEDS ORDERED: ONDA4TAB6 PO (02:58)
[2021-12-04] MEDS ORDERED: patient comment (02:59)
[2021-12-04] MEDS ORDERED: HOME MED LIST COMPLETE! XX SCH (03:00)
[2021-12-04] MEDS ORDERED: ACETAMINOPHEN TAB 650MG DOSE (2X325MG) PO PRN (03:25)
[2021-12-04] MEDS ORDERED: ONDANSETRON 4MG 2ML VIAL IV PRN ×2 (03:30→04:00)
[2021-12-04] MEDS ORDERED: GLUCOSE 4GM CHEW TABLET PO PRN (03:30)
[2021-12-04] MEDS ORDERED: GLUCAGON INJ 1MG VIAL SC PRN (03:30)
[2021-12-04] MEDS: MORPHINE 2 MG/ML 1ML VIAL IV PRN ×2 (04:07→13:55)
[2021-12-04] MEDS: KCL 40MEQ in NS 1000ML 1,000 ML IV SCH ×2 (04:07→13:54)
[2021-12-04] MEDS: HEPARIN SOD (PORCINE) 5000UNITS/ML 1ML VIAL/SYRINGE SC SCH ×3 (04:08→21:18)
[2021-12-04] MEDS ORDERED: METOCLOPRAMIDE INJ 10MG/2ML VIAL (J2765 PER 1) IV PRN (04:25)
[2021-12-04 08:15] LABS: HEMATOCRIT 29.9 % (36.0-47.0); HEMOGLOBIN 10.1 g/dl (12.0-15.5); MEAN CORPUSCULAR HGB CONC 33.8 g/dl (32.0-36.5); MEAN CORPUSCULAR VOLUME 85.9 fl (80.0-96.0); PLATELET COUNT, AUTOMATED 212 10^3/uL (150-450); RED BLOOD COUNT 3.48 10^6/uL (4.00-5.40); WHITE BLOOD COUNT 11.2 10^3/uL (4.0-10.0)
[2021-12-04 08:47] LABS: ACETONE/KETONE > 46.00 MG/DL (<2.81); ALBUMIN 3.3 GM/DL (3.2-5.2); ALT/SGPT 20 U/L (12-78); BLOOD UREA NITROGEN 51 MG/DL (7-18); CALCIUM LEVEL 8.2 MG/DL (8.5-10.1); CARBON DIOXIDE LEVEL 18 MEQ/L (21-32); CHLORIDE LEVEL 104 MEQ/L (98-107); CREATININE FOR GFR 1.56 MG/DL (0.55-1.30); GLOMERULAR FILTRATION RATE 45.5 (>58); GLUCOSE, FASTING 295 MG/DL (70-100); POTASSIUM SERUM 3.9 MEQ/L (3.5-5.1); SODIUM LEVEL 139 MEQ/L (136-145); TOTAL PROTEIN 6.4 GM/DL (6.4-8.2)
[2021-12-04] MEDS ORDERED: LEVEMIR (INSULIN DETEMIR) 1 UNITS/0.01ML SC SCH ×2 (09:00→21:00)
[2021-12-04] MEDS: INSULIN LISPRO (NovoLOG) PER UNIT SC SCH ×2 (09:42→13:55)
[2021-12-04] MEDS: DEXTROSE 50% 50 ML SYRINGE IV PRN (15:35)
[2021-12-04 16:15] VITALS: BP 130/85
[2021-12-04] MEDS: NS 0.45% 1,000 ML IV SCH (17:21)
[2021-12-04] MEDS ORDERED: PANTOPRAZOLE 40MG VIAL IV SCH (18:00)
[2021-12-04] MEDS ORDERED: INSULIN LISPRO (NovoLOG) PER UNIT SC SCH (21:00)
[2021-12-04 22:00] VITALS: BP 126/82
[2021-12-05] MEDS: NS 0.45% 1,000 ML IV SCH ×2 (02:51→12:55)
[2021-12-05] MEDS: DEXTROSE 50% 50 ML SYRINGE IV PRN (04:38)
[2021-12-05] MEDS: HEPARIN SOD (PORCINE) 5000UNITS/ML 1ML VIAL/SYRINGE SC SCH ×2 (05:04→14:00)
[2021-12-05 06:00] VITALS: BP 124/82
[2021-12-05 06:55] LABS: HEMATOCRIT 28.1 % (36.0-47.0); HEMOGLOBIN 9.3 g/dl (12.0-15.5); MEAN CORPUSCULAR HEMOGLOBIN 28.8 pg (27.0-33.0); MEAN CORPUSCULAR HGB CONC 33.1 g/dl (32.0-36.5); PLATELET COUNT, AUTOMATED 235 10^3/uL (150-450); RED BLOOD COUNT 3.23 10^6/uL (4.00-5.40); WHITE BLOOD COUNT 6.7 10^3/uL (4.0-10.0)
[2021-12-05 07:22] LABS: BLOOD UREA NITROGEN 25 MG/DL (7-18); CREATININE FOR GFR 1.17 MG/DL (0.55-1.30); GLUCOSE, FASTING 100 MG/DL (70-100)
[2021-12-05 07:23] LABS: ACETONE/KETONE 0.92 MG/DL (<2.81); ALT/SGPT 17 U/L (12-78); BILIRUBIN,TOTAL 0.8 MG/DL (0.2-1.0); CALCIUM LEVEL 8.3 MG/DL (8.5-10.1); CARBON DIOXIDE LEVEL 27 MEQ/L (21-32); CHLORIDE LEVEL 106 MEQ/L (98-107); GLOMERULAR FILTRATION RATE > 60.0 (>58); POTASSIUM SERUM 3.3 MEQ/L (3.5-5.1); SODIUM LEVEL 135 MEQ/L (136-145); TOTAL PROTEIN 6.1 GM/DL (6.4-8.2)
[2021-12-05 14:00] VITALS: BP 127/82
[2021-12-05] MEDS ORDERED: POTASSIUM CHLORIDE 10MEQ SR TABLET PO ONE (14:45)
[2021-12-05] MEDS ORDERED: ISOVUE-370 76% 100ML VIAL As Ordered ONE (14:55)
== END 2021-12-05 15:15 | disposition left against medical advice (07) | DRG 249 ==
LOC: EDBD 21:03 → M ED 21:03 → M ED INP 12-04 06:07 → ENRESERV 12-04 14:39 → M MS5PR 12-04 16:15
PROVIDERS: ADMIT Internal Medicine; ATTEND Internal Medicine
DX: R11.15 Cyclical vomiting syndrome unrelated to migraine (principal); E10.22 Type 1 diabetes mellitus with diabetic chronic kidney disease; E10.649 Type 1 diabetes mellitus with hypoglycemia without coma; N17.9 Acute kidney failure, unspecified; N18.30 Chronic kidney disease, stage 3 unspecified; E10.43 Type 1 diabetes mellitus with diabetic autonomic (poly)neuropathy; K31.84 Gastroparesis; F12.188 Cannabis abuse with other cannabis-induced disorder; E87.6 Hypokalemia; D63.1 Anemia in chronic kidney disease; J44.9 Chronic obstructive pulmonary disease, unspecified; Z87.891 Personal history of nicotine dependence; Z79.4 Long term (current) use of insulin; Z79.899 Other long term (current) drug therapy

== ENCOUNTER 2022-01-14 19:41 | Inpatient (IN) | payer OTHER ==
[~2022-01-14] VITALS: Ht 170.2 cm; Wt 62.0 kg
[~2022-01-14 19:41] MED LIST changes: +patient comment
[2022-01-14] MEDS ORDERED: NS 1,000 ML IV ONE (20:10)
[2022-01-14] MEDS ORDERED: ACETAMINOPHEN TAB 650MG DOSE (2X325MG) PO ONE (20:20)
[2022-01-14 20:22] LABS: VENOUS BASE EXCESS -0.3 (-2.0-2.0); VENOUS HCO3 18.7 MEQ/L (23.0-27.0); VENOUS O2 SATURATION 99.1 % (60.0-80.0); VENOUS PARTIAL PRESSURE CO2 18.3 mmHg (38.0-50.0); VENOUS PARTIAL PRESSURE O2 173.2 mmHg (30.0-50.0); VENOUS PH 7.627 UNITS (7.330-7.430); VENOUS STANDARD HCO3 24.3 MEQ/L; VENOUS TOTAL CO2 19.3 MEQ/L (24.0-28.0)
[2022-01-14 20:25] LABS: BASO # 0.1 10^3/uL (0.0-0.2); BASO % 0.5 % (0.0-1.0); HEMATOCRIT 34.6 % (36.0-47.0); HEMOGLOBIN 11.7 g/dl (12.0-15.5); LYMPH # 1.1 10^3/uL (1.5-5.0); LYMPH % 9.8 % (24.0-44.0); MEAN CORPUSCULAR HEMOGLOBIN 28.8 pg (27.0-33.0); MEAN CORPUSCULAR HGB CONC 33.8 g/dl (32.0-36.5); MEAN CORPUSCULAR VOLUME 85.2 fl (80.0-96.0); MONO # 0.5 10^3/uL (0.0-0.8); MONO % 4.6 % (2.0-8.0); NEUTROPHILS # 9.1 10^3/uL (1.5-8.5); NEUTROPHILS % 84.6 % (36.0-66.0); PLATELET COUNT, AUTOMATED 350 10^3/uL (150-450); RED BLOOD COUNT 4.06 10^6/uL (4.00-5.40); WHITE BLOOD COUNT 10.8 10^3/uL (4.0-10.0)
[2022-01-14] MEDS ORDERED: PROMETHAZINE 25MG/ML 1ML VIAL IV ONE (20:40)
[2022-01-14 20:51] LABS: ABG BASE EXCESS -2.8 (-2.0-2.0); ABG O2 SATURATION 97.9 % (95.0-99.0); ABG PARTIAL PRESSURE CO2 25.1 mmHg (35.0-45.0); ABG PARTIAL PRESSURE O2 108.7 mmHg (75.0-100.0); ABG STANDARD HCO3 22.2 MEQ/L (22.0-26.0); ABG TOTAL CO2 19.8 MEQ/L (22.0-29.0); ABG pH (ARTERIAL) 7.497 UNITS (7.350-7.450)
[2022-01-14 21:27] LABS: ACETONE/KETONE 38.95 MG/DL (<2.81); ALBUMIN 4.3 GM/DL (3.2-5.2); BILIRUBIN,DIRECT 0.3 MG/DL (0.0-0.2); BILIRUBIN,TOTAL 1.1 MG/DL (0.2-1.0); CALCIUM LEVEL 9.4 MG/DL (8.5-10.1); CREATININE FOR GFR 1.79 MG/DL (0.55-1.30); GLOMERULAR FILTRATION RATE 38.8 (>58); POTASSIUM SERUM 3.7 MEQ/L (3.5-5.1); TOTAL PROTEIN 7.7 GM/DL (6.4-8.2)
[2022-01-14] MEDS ORDERED: HumuLIN R (REGULAR) INSULIN (NovoLIN R) **100U/ML** PER UNIT IV ONE (21:30)
[2022-01-14] MEDS ORDERED: INSULIN IV RATE CHANGE DOCUMENTATION ML/HR XX SCH (21:50)
[2022-01-14] MEDS ORDERED: INSULIN REGULAR IN 0.9 % NACL 100 UNIT in IV 1 EA IV SCH ×2 (21:50)
[2022-01-14 22:26] LABS: RSV AMPLIFICATION NEGATIVE (NEGATIVE)
[2022-01-14] MEDS ORDERED: GLUCOSE 4GM CHEW TABLET PO PRN (23:00)
[2022-01-14] MEDS ORDERED: NS 500 ML IV ONE (23:00)
[2022-01-14] MEDS ORDERED: DEXTROSE 50% 50 ML SYRINGE IV PRN (23:00)
[2022-01-14] MEDS ORDERED: GLUCAGON INJ 1MG VIAL SC PRN (23:00)
[2022-01-14] MEDS ORDERED: HOME MED LIST COMPLETE! XX SCH (23:30)
[2022-01-14] MEDS: LEVEMIR (INSULIN DETEMIR) 1 UNITS/0.01ML SC SCH (23:41)
[2022-01-15] MEDS: NS 1,000 ML IV SCH ×2 (01:16→11:00)
[2022-01-15] MEDS: INSULIN LISPRO (NovoLOG) PER UNIT SC SCH ×6 (01:19→21:00)
[2022-01-15] MEDS: METOCLOPRAMIDE INJ 10MG/2ML VIAL (J2765 PER 1) IV PRN (04:15)
[2022-01-15 04:50] VITALS: BP 141/71
[2022-01-15] MEDS: HEPARIN SOD (PORCINE) 5000UNITS/ML 1ML VIAL/SYRINGE SC SCH ×3 (05:50→21:07)
[2022-01-15] MEDS ORDERED: PANTOPRAZOLE 40MG VIAL IV ONE (05:55)
[2022-01-15] MEDS ORDERED: ACETAMINOPHEN 1000MG 100ML IV BTL (OFIRMEV) (J0131 PER 10MG) IV ONE (06:20)
[2022-01-15 08:18] VITALS: BP 110/72
[2022-01-15 09:25] LABS: BASO # 0.1 10^3/uL (0.0-0.2); BASO % 0.5 % (0.0-1.0); EOS % 0.1 % (0.0-3.0); HEMATOCRIT 29.2 % (36.0-47.0); LYMPH # 1.3 10^3/uL (1.5-5.0); LYMPH % 13.8 % (24.0-44.0); MEAN CORPUSCULAR HEMOGLOBIN 29.6 pg (27.0-33.0); MEAN CORPUSCULAR HGB CONC 34.2 g/dl (32.0-36.5); MEAN CORPUSCULAR VOLUME 86.4 fl (80.0-96.0); MONO # 0.6 10^3/uL (0.0-0.8); MONO % 6.7 % (2.0-8.0); NEUTROPHILS # 7.2 10^3/uL (1.5-8.5); NEUTROPHILS % 78.6 % (36.0-66.0); PLATELET COUNT, AUTOMATED 324 10^3/uL (150-450); RED BLOOD COUNT 3.38 10^6/uL (4.00-5.40); WHITE BLOOD COUNT 9.2 10^3/uL (4.0-10.0)
[2022-01-15 10:00] LABS: CALCIUM LEVEL 8.3 MG/DL (8.5-10.1); CREATININE FOR GFR 1.49 MG/DL (0.55-1.30); POTASSIUM SERUM 3.6 MEQ/L (3.5-5.1)
[2022-01-15] MEDS ORDERED: ACETAMINOPHEN TAB 650MG DOSE (2X325MG) PO PRN (11:40)
[2022-01-15] MEDS: LR 1,000 ML IV SCH ×2 (11:49→21:02)
[2022-01-15 12:02] VITALS: BP 110/72
[2022-01-15 13:37] VITALS: BP 130/65
[2022-01-15 18:00] VITALS: BP 130/65
[2022-01-15] MEDS ORDERED: GI COCKTAIL 50ML BTL(HYOSCYAMINE/MAALOX/LIDOCAINE VISCOUS)(1:3:1) PO ONE (18:50)
[2022-01-15] MEDS ORDERED: MORPHINE 2 MG/ML 1ML VIAL IV ONE (18:50)
[2022-01-15 20:21] VITALS: BP 137/68
[2022-01-15] MEDS: LEVEMIR (INSULIN DETEMIR) 1 UNITS/0.01ML SC SCH (21:02)
[2022-01-16 04:32] VITALS: BP 147/86
[2022-01-16] MEDS: HEPARIN SOD (PORCINE) 5000UNITS/ML 1ML VIAL/SYRINGE SC SCH ×3 (05:47→22:13)
[2022-01-16] MEDS: PANTOPRAZOLE 40MG VIAL IV SCH (06:03)
[2022-01-16 06:07] LABS: HEMATOCRIT 28.5 % (36.0-47.0); HEMOGLOBIN 9.6 g/dl (12.0-15.5); MEAN CORPUSCULAR HEMOGLOBIN 29.4 pg (27.0-33.0); MEAN CORPUSCULAR HGB CONC 33.7 g/dl (32.0-36.5); MEAN CORPUSCULAR VOLUME 87.4 fl (80.0-96.0); PLATELET COUNT, AUTOMATED 263 10^3/uL (150-450); RED BLOOD COUNT 3.26 10^6/uL (4.00-5.40); WHITE BLOOD COUNT 7.6 10^3/uL (4.0-10.0)
[2022-01-16 06:43] LABS: BLOOD UREA NITROGEN 22 MG/DL (7-18); CALCIUM LEVEL 8.7 MG/DL (8.5-10.1); CARBON DIOXIDE LEVEL 25 MEQ/L (21-32); CHLORIDE LEVEL 106 MEQ/L (98-107); CREATININE FOR GFR 1.02 MG/DL (0.55-1.30); GLOMERULAR FILTRATION RATE > 60.0 (>58); GLUCOSE, FASTING 58 MG/DL (70-100); MAGNESIUM LEVEL 1.7 MG/DL (1.8-2.4); POTASSIUM SERUM 3.1 MEQ/L (3.5-5.1); SODIUM LEVEL 137 MEQ/L (136-145)
[2022-01-16] MEDS: INSULIN LISPRO (NovoLOG) PER UNIT SC SCH ×4 (07:30→19:53)
[2022-01-16] MEDS: MAG SULF 1GM/100ML (MAG RUN) 1 GM in IV 1 EA IV SCH ×2 (07:35→08:44)
[2022-01-16] MEDS: LR 1,000 ML IV SCH ×2 (07:35→22:13)
[2022-01-16 08:00] VITALS: BP 143/4
[2022-01-16] MEDS ORDERED: POTASSIUM CHLORIDE 10MEQ SR TABLET PO ONE (09:00)
[2022-01-16] MEDS: KCL 10MEQ/100ML SWI (KRUN) 10 MEQ in IV 1 EA IV SCH ×6 (10:13→20:29)
[2022-01-16 12:00] VITALS: BP_SYST 143; BP_SYST 148; BP_DIAS 84; BP_DIAS 86
[2022-01-16 20:00] VITALS: BP 148/82
[2022-01-16] MEDS ORDERED: KCL 10MEQ/100ML SWI (KRUN) 10 MEQ in IV 1 EA IV SCH (20:30)
[2022-01-17 04:00] VITALS: BP 151/91
[2022-01-17] MEDS ORDERED: KETOROLAC 30 MG/ML 1ML VIAL IV ONE (04:50)
[2022-01-17] MEDS ORDERED: INSULIN LISPRO (NovoLOG) PER UNIT SC ONE (04:50)
[2022-01-17] MEDS: ONDANSETRON 4MG 2ML VIAL IV PRN (05:00)
[2022-01-17] MEDS: METOCLOPRAMIDE INJ 10MG/2ML VIAL (J2765 PER 1) IV PRN ×2 (05:34→17:40)
[2022-01-17] MEDS: HEPARIN SOD (PORCINE) 5000UNITS/ML 1ML VIAL/SYRINGE SC SCH ×3 (05:34→21:51)
[2022-01-17] MEDS ORDERED: MORPHINE 2 MG/ML 1ML VIAL IV ONE (06:00)
[2022-01-17] MEDS: PANTOPRAZOLE 40MG VIAL IV SCH (06:07)
[2022-01-17] MEDS: INSULIN LISPRO (NovoLOG) PER UNIT SC SCH ×4 (07:30→20:38)
[2022-01-17 07:33] LABS: BLOOD UREA NITROGEN 15 MG/DL (7-18); CALCIUM LEVEL 9.3 MG/DL (8.5-10.1); CARBON DIOXIDE LEVEL 25 MEQ/L (21-32); CHLORIDE LEVEL 105 MEQ/L (98-107); CREATININE FOR GFR 1.17 MG/DL (0.55-1.30); GLOMERULAR FILTRATION RATE > 60.0 (>58); GLUCOSE, FASTING 212 MG/DL (70-100); MAGNESIUM LEVEL 1.6 MG/DL (1.8-2.4); POTASSIUM SERUM 3.7 MEQ/L (3.5-5.1); SODIUM LEVEL 136 MEQ/L (136-145)
[2022-01-17 08:00] VITALS: BP 180/92
[2022-01-17] MEDS: lisinopriL 5 MG TAB PO SCH (09:00)
[2022-01-17] MEDS: MORPHINE 2 MG/ML 1ML VIAL IV PRN ×2 (09:19→17:32)
[2022-01-17] MEDS: LR 1,000 ML IV SCH ×3 (09:22→19:39)
[2022-01-17] MEDS ORDERED: ISOVUE-370 76% 100ML VIAL As Ordered ONE (09:37)
[2022-01-17 12:00] VITALS: BP 166/91
[2022-01-17] MEDS ORDERED: PROT1TAB2 PO (14:38)
[2022-01-17 16:00] VITALS: BP 139/78
[2022-01-17] MEDS ORDERED: LEVEMIR (INSULIN DETEMIR) 1 UNITS/0.01ML SC SCH (21:00)
[2022-01-17 22:00] VITALS: BP 124/82
[2022-01-18] MEDS: MORPHINE 2 MG/ML 1ML VIAL IV PRN (04:04)
[2022-01-18] MEDS: ONDANSETRON 4MG 2ML VIAL IV PRN (04:04)
[2022-01-18 06:00] VITALS: BP 158/96
[2022-01-18] MEDS: PANTOPRAZOLE 40MG VIAL IV SCH (06:00)
[2022-01-18] MEDS: HEPARIN SOD (PORCINE) 5000UNITS/ML 1ML VIAL/SYRINGE SC SCH (06:00)
[2022-01-18] MEDS: METOCLOPRAMIDE INJ 10MG/2ML VIAL (J2765 PER 1) IV PRN (06:14)
[2022-01-18] MEDS ORDERED: INSULIN LISPRO (NovoLOG) PER UNIT SC ONE ×2 (06:25→09:05)
[2022-01-18 06:58] LABS: BLOOD UREA NITROGEN 16 MG/DL (7-18); CALCIUM LEVEL 9.2 MG/DL (8.5-10.1); CARBON DIOXIDE LEVEL 18 MEQ/L (21-32); CHLORIDE LEVEL 99 MEQ/L (98-107); CREATININE FOR GFR 1.15 MG/DL (0.55-1.30); GLOMERULAR FILTRATION RATE > 60.0 (>58); GLUCOSE, FASTING 372 MG/DL (70-100); POTASSIUM SERUM 4.2 MEQ/L (3.5-5.1); SODIUM LEVEL 133 MEQ/L (136-145)
[2022-01-18] MEDS: INSULIN LISPRO (NovoLOG) PER UNIT SC SCH ×2 (07:30→11:33)
[2022-01-18 08:39] VITALS: BP 104/83
[2022-01-18] MEDS: lisinopriL 5 MG TAB PO SCH (08:39)
[2022-01-18] MEDS: LR 1,000 ML IV SCH (09:14)
[2022-01-18] MEDS ORDERED: REGL10TA6 PO ×2 (11:07)
[2022-01-18] MEDS ORDERED: MAGN400T2 PO (11:19)
[2022-01-18] MEDS ORDERED: MAGNESIUM OXIDE 400MG TAB (MAG-OX) PO SCH (11:20)
[2022-01-18 12:32] VITALS: BP 132/81
== END 2022-01-18 14:22 | disposition home or self-care (01) | DRG 249 ==
LOC: EDBD 19:41 → M ED 19:41 → M ED INP 23:00 → M PCU 01-15 04:27 → M MSPAV 01-17 16:14
PROVIDERS: ADMIT Internal Medicine; ATTEND Internal Medicine
DX: R11.2 Nausea with vomiting, unspecified (principal); E87.4 Mixed disorder of acid-base balance; N17.9 Acute kidney failure, unspecified; E10.65 Type 1 diabetes mellitus with hyperglycemia; Z79.4 Long term (current) use of insulin; F12.188 Cannabis abuse with other cannabis-induced disorder

== ENCOUNTER 2022-03-04 19:16 | Inpatient (IN) | payer OTHER ==
[~2022-03-04] VITALS: Ht 162.6 cm; Wt 65.6 kg
[~2022-03-04 19:16] MED LIST changes: +MAGN400T2 PO
[2022-03-04] MEDS ORDERED: HALOPERIDOL 5MG/ML VIAL (J1630 PER 1) IV ONE (19:50)
[2022-03-04] MEDS ORDERED: NS 500 ML IV ONE (19:50)
[2022-03-04 20:18] LABS: BASO # 0.1 10^3/uL (0.0-0.2); BASO % 0.7 % (0.0-1.0); EOS % 0.1 % (0.0-3.0); HEMATOCRIT 28.5 % (36.0-47.0); HEMOGLOBIN 9.3 g/dl (12.0-15.5); LYMPH % 14.8 % (24.0-44.0); MEAN CORPUSCULAR HEMOGLOBIN 28.8 pg (27.0-33.0); MEAN CORPUSCULAR HGB CONC 32.6 g/dl (32.0-36.5); MEAN CORPUSCULAR VOLUME 88.2 fl (80.0-96.0); MONO # 0.3 10^3/uL (0.0-0.8); NEUTROPHILS # 5.3 10^3/uL (1.5-8.5); NEUTROPHILS % 80.1 % (36.0-66.0); PLATELET COUNT, AUTOMATED 236 10^3/uL (150-450); RED BLOOD COUNT 3.23 10^6/uL (4.00-5.40); WHITE BLOOD COUNT 6.7 10^3/uL (4.0-10.0)
[2022-03-04 20:45] LABS: ALBUMIN 2.5 G/DL (3.2-5.2)
[2022-03-04 20:51] LABS: BILIRUBIN,TOTAL 0.4 MG/DL (0.3-1.2); PHOSPHORUS LEVEL 2.4 MG/DL (2.5-4.9); TOTAL PROTEIN 4.2 G/DL (5.7-8.2)
[2022-03-04 20:52] LABS: BILIRUBIN,DIRECT 0.2 MG/DL (<0.4)
[2022-03-04 20:54] LABS: APPEARANCE, URINE MANUAL CLEAR (CLEAR); BILIRUBIN, URINE MANUAL NEGATIVE (NEGATIVE); BLOOD URINE MANUAL NEGATIVE (NEGATIVE); COLOR, URINE MANUAL LT YELLOW (YELLOW); GLUCOSE, URINE (UA) MANUAL 4+(1000 MG/DL) mg/dL (NEGATIVE); KETONE, URINE MANUAL 2+ mg/dL (NEGATIVE); LEUKOCYTE ESTERASE, URINE MAN POSITIVE (NEGATIVE); NITRITE, URINE MANUAL NEGATIVE (NEGATIVE); PROTEIN, URINE MANUAL TRACE mg/dL (NEGATIVE); UROBILINOGEN, URINE MANUAL NORMAL (NORMAL)
[2022-03-04] MEDS ORDERED: MORPHINE 4 MG/ML 1ML VIAL IV ONE (20:55)
[2022-03-04] MEDS ORDERED: PROMETHAZINE 25MG/ML 1ML VIAL IV ONE (20:55)
[2022-03-04 20:58] LABS: RSV AMPLIFICATION NEGATIVE (NEGATIVE)
[2022-03-04 21:13] LABS: AMPHETAMINES LEVEL URINE NEGATIVE (NEGATIVE); BENZODIAZEPINES URINE NEGATIVE (NEGATIVE); PHENCYCLIDINE URINE NEGATIVE (NEGATIVE)
[2022-03-04 21:14] LABS: BARBITURATES URINE NEGATIVE (NEGATIVE); METHADONE URINE NEGATIVE (NEGATIVE); OPIATES URINE NEGATIVE (NEGATIVE)
[2022-03-04 21:16] LABS: CANNABINOIDS URINE POSITIVE (NEGATIVE)
[2022-03-04 21:22] LABS: WBC, URINE 30-40 /hpf (0-3)
[2022-03-04 21:23] LABS: BACTERIA, URINE LARGE AMOUNT; SQUAMOUS EPITHELIAL CELL URINE SMALL AMOUNT /hpf (SMALL AMT)
[2022-03-04 21:51] LABS: ACETONE/KETONE 2.96 MMOL/L (0.02-0.27)
[2022-03-04] MEDS ORDERED: MAG SULF 1GM/100ML (MAG RUN) 1 GM in IV 1 EA IV ONE (21:55)
[2022-03-04 22:17] LABS: COCAINE METABOLITE URINE NEGATIVE (NEGATIVE)
[2022-03-04] MEDS ORDERED: cefTRIAXone SOD 1 GM in D5W MINI-BAG PLUS 50 ML IV ONE (22:55)
[2022-03-05] MEDS ORDERED: HOME MED LIST COMPLETE! XX SCH
[2022-03-05] MEDS ORDERED: ACETAMINOPHEN TAB 650MG DOSE (2X325MG) PO PRN (01:05)
[2022-03-05] MEDS ORDERED: GLUCAGON INJ 1MG VIAL SC PRN (01:05)
[2022-03-05] MEDS: NS 1,000 ML IV SCH ×3 (01:05→16:23)
[2022-03-05] MEDS ORDERED: GLUCOSE 4GM CHEW TABLET PO PRN (01:05)
[2022-03-05] MEDS ORDERED: MOM 30ML SUSPENSION UDC PO PRN (01:05)
[2022-03-05] MEDS ORDERED: DEXTROSE 50% 50 ML SYRINGE IV PRN (01:05)
[2022-03-05] MEDS: METOCLOPRAMIDE INJ 10MG/2ML VIAL IV SCH ×3 (01:48→18:29)
[2022-03-05] MEDS ORDERED: MAG SULF 1GM/100ML (MAG RUN) 1 GM in IV 1 EA IV ONE (02:00)
[2022-03-05 02:21] VITALS: BP 126/68
[2022-03-05] MEDS ORDERED: PROMETHAZINE 25MG/ML 1ML VIAL IV PRN (03:00)
[2022-03-05 04:00] VITALS: BP 145/84
[2022-03-05] MEDS: HEPARIN SOD (PORCINE) 5000UNITS/ML 1ML VIAL/SYRINGE SC SCH ×3 (05:10→22:34)
[2022-03-05] MEDS: INSULIN LISPRO (NovoLOG) PER UNIT SC SCH ×3 (09:00→18:28)
[2022-03-05] MEDS ORDERED: LEVEMIR (INSULIN DETEMIR) 1 UNITS/0.01ML SC SCH ×2 (09:00)
[2022-03-05 12:48] LABS: VENOUS BASE EXCESS -11.9 (-2.0-2.0); VENOUS O2 SATURATION 98.2 % (60.0-80.0); VENOUS PARTIAL PRESSURE CO2 32.1 mmHg (38.0-50.0); VENOUS PH 7.258 UNITS (7.330-7.430); VENOUS STANDARD HCO3 15.1 MEQ/L
[2022-03-05 12:49] LABS: HEMATOCRIT 31.6 % (36.0-47.0); HEMOGLOBIN 10.3 g/dl (12.0-15.5); MEAN CORPUSCULAR HEMOGLOBIN 28.9 pg (27.0-33.0); MEAN CORPUSCULAR HGB CONC 32.6 g/dl (32.0-36.5); MEAN CORPUSCULAR VOLUME 88.8 fl (80.0-96.0); PLATELET COUNT, AUTOMATED 256 10^3/uL (150-450); RED BLOOD COUNT 3.56 10^6/uL (4.00-5.40)
[2022-03-05 13:39] LABS: MAGNESIUM LEVEL 2.2 MG/DL (1.8-2.4)
[2022-03-05 13:41] LABS: CALCIUM LEVEL 9.3 MG/DL (8.5-10.1); CREATININE FOR GFR 1.5 MG/DL (0.55-1.30); GLOMERULAR FILTRATION RATE 47.6 (>58); POTASSIUM SERUM 4.2 MMOL/L (3.5-5.1)
[2022-03-05 14:00] VITALS: BP 116/73
[2022-03-05] MEDS ORDERED: NS 1,000 ML IV ONE (15:05)
[2022-03-05 17:55] LABS: CALCIUM LEVEL 8.8 MG/DL (8.5-10.1); CREATININE FOR GFR 1.41 MG/DL (0.55-1.30); GLOMERULAR FILTRATION RATE 51.1 (>58); POTASSIUM SERUM 3.9 MMOL/L (3.5-5.1)
[2022-03-05] MEDS ORDERED: cefTRIAXone SOD 1 GM in D5W MINI-BAG PLUS 50 ML IV SCH (21:00)
[2022-03-05] MEDS ORDERED: INSULIN LISPRO (NovoLOG) PER UNIT SC SCH (21:00)
[2022-03-05 22:00] VITALS: BP 98/66
[2022-03-06] MEDS ORDERED: D5W 1,000 ML IV SCH (01:15)
[2022-03-06] MEDS: METOCLOPRAMIDE INJ 10MG/2ML VIAL IV SCH ×2 (01:25→10:00)
[2022-03-06] MEDS: HEPARIN SOD (PORCINE) 5000UNITS/ML 1ML VIAL/SYRINGE SC SCH (05:28)
[2022-03-06 06:00] VITALS: BP 112/69
[2022-03-06 06:25] LABS: BASO % 0.4 % (0.0-1.0); EOS # 0.1 10^3/uL (0.0-0.5); EOS % 0.5 % (0.0-3.0); HEMATOCRIT 23.9 % (36.0-47.0); HEMOGLOBIN 8.5 g/dl (12.0-15.5); LYMPH # 2.3 10^3/uL (1.5-5.0); LYMPH % 24.3 % (24.0-44.0); MEAN CORPUSCULAR HGB CONC 35.6 g/dl (32.0-36.5); MEAN CORPUSCULAR VOLUME 84.5 fl (80.0-96.0); MONO # 0.7 10^3/uL (0.0-0.8); MONO % 7.3 % (2.0-8.0); NEUTROPHILS # 6.4 10^3/uL (1.5-8.5); NEUTROPHILS % 67.2 % (36.0-66.0); PLATELET COUNT, AUTOMATED 232 10^3/uL (150-450); RED BLOOD COUNT 2.83 10^6/uL (4.00-5.40); WHITE BLOOD COUNT 9.5 10^3/uL (4.0-10.0)
[2022-03-06 06:42] LABS: CALCIUM LEVEL 8.3 MG/DL (8.5-10.1); CREATININE FOR GFR 1.23 MG/DL (0.55-1.30); GLOMERULAR FILTRATION RATE 59.9 (>58); POTASSIUM SERUM 3.8 MMOL/L (3.5-5.1)
[2022-03-06] MEDS: INSULIN LISPRO (NovoLOG) PER UNIT SC SCH (07:30)
[2022-03-06] MEDS ORDERED: REGL5TAB2 PO (09:14)
[2022-03-06] MEDS ORDERED: INSULIN LISPRO (NovoLOG) PER UNIT SC SCH (12:00)
== END 2022-03-06 11:12 | disposition home or self-care (01) | DRG 48 ==
LOC: M ED 19:16 → M ED INP 23:54 → ENRESERV 03-05 00:15 → M MSPAV 03-05 02:02
PROVIDERS: ADMIT Family Medicine; ATTEND Internal Medicine Nephrology
DX: E10.43 Type 1 diabetes mellitus with diabetic autonomic (poly)neuropathy (principal); E10.22 Type 1 diabetes mellitus with diabetic chronic kidney disease; N17.9 Acute kidney failure, unspecified; E83.42 Hypomagnesemia; N18.30 Chronic kidney disease, stage 3 unspecified; K31.84 Gastroparesis; F12.188 Cannabis abuse with other cannabis-induced disorder; R11.2 Nausea with vomiting, unspecified; E10.10 Type 1 diabetes mellitus with ketoacidosis without coma; Z79.4 Long term (current) use of insulin

== ENCOUNTER 2022-04-06 15:47 | Inpatient (IN) | payer OTHER ==
[~2022-04-06] VITALS: Ht 162.6 cm; Wt 57.7 kg
[2022-04-06] MEDS ORDERED: NS 1,000 ML IV ONE ×3 (15:55→18:00)
[2022-04-06 16:38] LABS: VENOUS BASE EXCESS -7.6 (-2.0-2.0); VENOUS HCO3 18.7 MEQ/L (23.0-27.0); VENOUS O2 SATURATION 64.6 % (60.0-80.0); VENOUS PARTIAL PRESSURE CO2 40.9 mmHg (38.0-50.0); VENOUS PARTIAL PRESSURE O2 37.8 mmHg (30.0-50.0); VENOUS PH 7.279 UNITS (7.330-7.430); VENOUS STANDARD HCO3 17.7 MEQ/L
[2022-04-06 16:43] LABS: BASO % 0.5 % (0.0-1.0); EOS % 0.3 % (0.0-3.0); HEMATOCRIT 35.8 % (36.0-47.0); HEMOGLOBIN 11.8 g/dl (12.0-15.5); LYMPH # 1.2 10^3/uL (1.5-5.0); LYMPH % 18.1 % (24.0-44.0); MEAN CORPUSCULAR HEMOGLOBIN 28.9 pg (27.0-33.0); MEAN CORPUSCULAR VOLUME 87.7 fl (80.0-96.0); MONO # 0.5 10^3/uL (0.0-0.8); MONO % 8.2 % (2.0-8.0); NEUTROPHILS # 4.6 10^3/uL (1.5-8.5); NEUTROPHILS % 72.6 % (36.0-66.0); PLATELET COUNT, AUTOMATED 272 10^3/uL (150-450); RED BLOOD COUNT 4.08 10^6/uL (4.00-5.40); WHITE BLOOD COUNT 6.4 10^3/uL (4.0-10.0)
[2022-04-06 17:14] LABS: LIPASE 23 U/L (12-53); MAGNESIUM LEVEL 2.2 MG/DL (1.8-2.4)
[2022-04-06 17:16] LABS: BILIRUBIN,DIRECT 0.4 MG/DL (<0.4)
[2022-04-06 17:30] LABS: ACETONE/KETONE > 4.50 MMOL/L (0.02-0.27); ALBUMIN 3.9 G/DL (3.2-5.2); ALKALINE PHOSPHATASE 82 U/L (46-116); ALT/SGPT 78 U/L (7.0-40); AST/SGOT 49 U/L (<34); BLOOD UREA NITROGEN 50 MG/DL (9-23); CALCIUM LEVEL 9.7 MG/DL (8.5-10.1); CARBON DIOXIDE LEVEL 17 MMOL/L (20-31); CHLORIDE LEVEL 90 MMOL/L (98-107); CREATININE FOR GFR 1.63 MG/DL (0.55-1.30); GLOMERULAR FILTRATION RATE 43.3 (>58); GLUCOSE, FASTING 431 MG/DL (60-100); PHOSPHORUS LEVEL 3.6 MG/DL (2.5-4.9); POTASSIUM SERUM 4.7 MMOL/L (3.5-5.1); SODIUM LEVEL 129 MMOL/L (136-145)
[2022-04-06 17:38] LABS: HCG, SERUM QUALITATIVE NEGATIVE (NEGATIVE); OSMOLALITY SERUM 312 MOSM/KG (275-295)
[2022-04-06 17:47] LABS: HEMOGLOBIN A1c 9.1 % (4.0-6.0)
[2022-04-06] MEDS ORDERED: INSULIN REGULAR IN 0.9 % NACL 100 UNIT in IV 1 EA IV SCH ×4 (17:50→18:20)
[2022-04-06] MEDS ORDERED: INSULIN IV RATE CHANGE DOCUMENTATION ML/HR XX SCH (17:50)
[2022-04-06] MEDS ORDERED: ONDANSETRON 4MG 2ML VIAL IV ONE (18:05)
[2022-04-06] MEDS ORDERED: NS 1,000 ML IV SCH (18:20)
[2022-04-06] MEDS ORDERED: HOME MED LIST COMPLETE! XX SCH (18:20)
[2022-04-06 18:36] LABS: RSV AMPLIFICATION NEGATIVE (NEGATIVE)
[2022-04-06 18:58] LABS: VENOUS BASE EXCESS -12.8 (-2.0-2.0); VENOUS O2 SATURATION 88.6 % (60.0-80.0); VENOUS PARTIAL PRESSURE CO2 35.2 mmHg (38.0-50.0); VENOUS PARTIAL PRESSURE O2 66.2 mmHg (30.0-50.0); VENOUS PH 7.216 UNITS (7.330-7.430); VENOUS STANDARD HCO3 14.4 MEQ/L
[2022-04-06 19:29] LABS: CALCIUM LEVEL 9.5 MG/DL (8.5-10.1); CREATININE FOR GFR 1.51 MG/DL (0.55-1.30); GLOMERULAR FILTRATION RATE 47.2 (>58); PHOSPHORUS LEVEL 3.6 MG/DL (2.5-4.9); POTASSIUM SERUM 4.4 MMOL/L (3.5-5.1)
[2022-04-06] MEDS: PANTOPRAZOLE 40MG VIAL IV SCH (20:18)
[2022-04-06 20:30] VITALS: BP 123/84
[2022-04-06] MEDS: INSULIN IV RATE CHANGE DOCUMENTATION ML/HR XX SCH ×2 (21:05→22:02)
[2022-04-06 21:58] VITALS: BP 129/78
[2022-04-06] MEDS: HEPARIN SOD (PORCINE) 5000UNITS/ML 1ML VIAL/SYRINGE SC SCH (21:59)
[2022-04-06 22:00] VITALS: BP 117/68
[2022-04-06] MEDS ORDERED: D5W/0.9% SODIUM CHLORIDE 1,000 ML IV SCH (22:30)
[2022-04-06 23:00] VITALS: BP 108/73
[2022-04-06] MEDS ORDERED: DEXTROSE 50% 50ML SYRINGE IV PRN (23:05)
[2022-04-06] MEDS ORDERED: GLUCOSE 4GM CHEW TABLET PO PRN (23:05)
[2022-04-06] MEDS ORDERED: GLUCAGON INJ 1MG VIAL SC PRN (23:05)
[2022-04-07] VITALS (11 sets, daily range): BP systolic 102–143; BP diastolic 61–76
[2022-04-07 00:50] LABS: VENOUS BASE EXCESS -4.6 (-2.0-2.0); VENOUS HCO3 19.9 MEQ/L (23.0-27.0); VENOUS O2 SATURATION 98.9 % (60.0-80.0); VENOUS PARTIAL PRESSURE CO2 34.7 mmHg (38.0-50.0); VENOUS PARTIAL PRESSURE O2 188.2 mmHg (30.0-50.0); VENOUS PH 7.377 UNITS (7.330-7.430); VENOUS STANDARD HCO3 20.7 MEQ/L
[2022-04-07] MEDS: ONDANSETRON 4MG 2ML VIAL IV PRN (00:57)
[2022-04-07] MEDS: INSULIN IV RATE CHANGE DOCUMENTATION ML/HR XX SCH (01:03)
[2022-04-07 01:20] LABS: CALCIUM LEVEL 8.2 MG/DL (8.5-10.1); CREATININE FOR GFR 1.3 MG/DL (0.55-1.30); GLOMERULAR FILTRATION RATE 56.2 (>58); POTASSIUM SERUM 4.1 MMOL/L (3.5-5.1)
[2022-04-07] MEDS ORDERED: LEVEMIR (INSULIN DETEMIR) 1 UNITS/0.01ML SC SCH (03:00)
[2022-04-07 05:24] LABS: MAGNESIUM LEVEL 1.7 MG/DL (1.8-2.4)
[2022-04-07] MEDS: HEPARIN SOD (PORCINE) 5000UNITS/ML 1ML VIAL/SYRINGE SC SCH ×3 (05:24→21:28)
[2022-04-07 05:28] LABS: ALBUMIN 3.1 G/DL (3.2-5.2); CALCIUM LEVEL 8.2 MG/DL (8.5-10.1); CREATININE FOR GFR 1.24 MG/DL (0.55-1.30); GLOMERULAR FILTRATION RATE 59.3 (>58); PHOSPHORUS LEVEL 2.1 MG/DL (2.5-4.9); POTASSIUM SERUM 4.1 MMOL/L (3.5-5.1); TOTAL PROTEIN 5.6 G/DL (5.7-8.2)
[2022-04-07] MEDS: INSULIN LISPRO (NovoLOG) PER UNIT SC SCH ×3 (07:30→17:10)
[2022-04-07] MEDS ORDERED: DEXTROSE 50% 50ML SYRINGE IV STA (08:00)
[2022-04-07] MEDS: NS 1,000 ML IV SCH ×3 (08:07→23:40)
[2022-04-07 09:18] LABS: CALCIUM LEVEL 8.2 MG/DL (8.5-10.1); CREATININE FOR GFR 1.23 MG/DL (0.55-1.30); GLOMERULAR FILTRATION RATE 59.9 (>58)
[2022-04-07] MEDS: PANTOPRAZOLE 40MG VIAL IV SCH (09:20)
[2022-04-07] MEDS ORDERED: MAG SULF 1GM/100ML (MAG RUN) 1 GM in IV 1 EA IV ONE ×2 (10:10→19:00)
[2022-04-07 12:19] LABS: BASO % 0.5 % (0.0-1.0); EOS % 0.5 % (0.0-3.0); HEMATOCRIT 26.6 % (36.0-47.0); LYMPH # 1.4 10^3/uL (1.5-5.0); LYMPH % 24.8 % (24.0-44.0); MEAN CORPUSCULAR HEMOGLOBIN 29.4 pg (27.0-33.0); MEAN CORPUSCULAR HGB CONC 33.8 g/dl (32.0-36.5); MEAN CORPUSCULAR VOLUME 86.9 fl (80.0-96.0); MONO # 0.4 10^3/uL (0.0-0.8); MONO % 7.8 % (2.0-8.0); NEUTROPHILS # 3.7 10^3/uL (1.5-8.5); NEUTROPHILS % 66.2 % (36.0-66.0); PLATELET COUNT, AUTOMATED 207 10^3/uL (150-450); RED BLOOD COUNT 3.06 10^6/uL (4.00-5.40); WHITE BLOOD COUNT 5.7 10^3/uL (4.0-10.0)
[2022-04-07 12:49] LABS: ALKALINE PHOSPHATASE 58 U/L (46-116); ALT/SGPT 50 U/L (7.0-40); AST/SGOT 31 U/L (<34); BLOOD UREA NITROGEN 28 MG/DL (9-23); CALCIUM LEVEL 8.3 MG/DL (8.5-10.1); CARBON DIOXIDE LEVEL 18 MMOL/L (20-31); CHLORIDE LEVEL 102 MMOL/L (98-107); CREATININE FOR GFR 1.14 MG/DL (0.55-1.30); GLOMERULAR FILTRATION RATE > 60.0 (>58); GLUCOSE, FASTING 132 MG/DL (60-100); PHOSPHORUS LEVEL 1.8 MG/DL (2.5-4.9); SODIUM LEVEL 135 MMOL/L (136-145); TOTAL PROTEIN 5.3 G/DL (5.7-8.2)
[2022-04-07] MEDS ORDERED: SODIUM PHOSPHATE INJ 30 MMOL in D5W 500 ML IV ONE (13:00)
[2022-04-07 18:27] LABS: MAGNESIUM LEVEL 1.7 MG/DL (1.8-2.4)
[2022-04-07 18:48] LABS: BLOOD UREA NITROGEN 25 MG/DL (9-23); CALCIUM LEVEL 8.1 MG/DL (8.5-10.1); CARBON DIOXIDE LEVEL 19 MMOL/L (20-31); CHLORIDE LEVEL 98 MMOL/L (98-107); CREATININE FOR GFR 1.14 MG/DL (0.55-1.30); GLOMERULAR FILTRATION RATE > 60.0 (>58); GLUCOSE, FASTING 276 MG/DL (60-100); PHOSPHORUS LEVEL 4.7 MG/DL (2.5-4.9); POTASSIUM SERUM 3.9 MMOL/L (3.5-5.1); SODIUM LEVEL 133 MMOL/L (136-145)
[2022-04-07] MEDS ORDERED: INSULIN LISPRO (NovoLOG) PER UNIT SC SCH (21:00)
[2022-04-07 22:46] LABS: BLOOD UREA NITROGEN 16 MG/DL (9-23); CALCIUM LEVEL 8.2 MG/DL (8.5-10.1); CARBON DIOXIDE LEVEL 22 MMOL/L (20-31); CHLORIDE LEVEL 101 MMOL/L (98-107); CREATININE FOR GFR 1.11 MG/DL (0.55-1.30); GLOMERULAR FILTRATION RATE > 60.0 (>58); GLUCOSE, FASTING 191 MG/DL (60-100); PHOSPHORUS LEVEL 2.5 MG/DL (2.5-4.9); POTASSIUM SERUM 3.3 MMOL/L (3.5-5.1); SODIUM LEVEL 134 MMOL/L (136-145)
[2022-04-08] MEDS ORDERED: POTASSIUM CHLORIDE 10MEQ SR TABLET PO ONE
[2022-04-08] MEDS ORDERED: POTASSIUM CHLORIDE 10% LIQ 20MEQ/15ML UDC PO ONE (01:00)
[2022-04-08] MEDS ORDERED: KCL 10MEQ/100ML SWI (KRUN) 10 MEQ in IV 1 EA IV SCH (01:00)
[2022-04-08 04:00] VITALS: BP 133/75
[2022-04-08 04:47] LABS: BASO % 0.2 % (0.0-1.0); EOS # 0.1 10^3/uL (0.0-0.5); EOS % 1.4 % (0.0-3.0); HEMOGLOBIN 8.5 g/dl (12.0-15.5); LYMPH # 1.9 10^3/uL (1.5-5.0); LYMPH % 32.6 % (24.0-44.0); MEAN CORPUSCULAR HEMOGLOBIN 28.7 pg (27.0-33.0); MEAN CORPUSCULAR HGB CONC 32.7 g/dl (32.0-36.5); MEAN CORPUSCULAR VOLUME 87.8 fl (80.0-96.0); MONO # 0.5 10^3/uL (0.0-0.8); MONO % 8.1 % (2.0-8.0); NEUTROPHILS # 3.4 10^3/uL (1.5-8.5); NEUTROPHILS % 57.4 % (36.0-66.0); PLATELET COUNT, AUTOMATED 179 10^3/uL (150-450); RED BLOOD COUNT 2.96 10^6/uL (4.00-5.40); WHITE BLOOD COUNT 5.9 10^3/uL (4.0-10.0)
[2022-04-08 05:12] LABS: MAGNESIUM LEVEL 1.7 MG/DL (1.8-2.4)
[2022-04-08 05:16] LABS: ALBUMIN 2.9 G/DL (3.2-5.2); ALKALINE PHOSPHATASE 64 U/L (46-116); ALT/SGPT 41 U/L (7.0-40); AST/SGOT 28 U/L (<34); BILIRUBIN,TOTAL 0.8 MG/DL (0.3-1.2); BLOOD UREA NITROGEN 19 MG/DL (9-23); CALCIUM LEVEL 8.1 MG/DL (8.5-10.1); CARBON DIOXIDE LEVEL 17 MMOL/L (20-31); CHLORIDE LEVEL 99 MMOL/L (98-107); CREATININE FOR GFR 1.11 MG/DL (0.55-1.30); GLOMERULAR FILTRATION RATE > 60.0 (>58); GLUCOSE, FASTING 317 MG/DL (60-100); SODIUM LEVEL 131 MMOL/L (136-145); TOTAL PROTEIN 5.1 G/DL (5.7-8.2)
[2022-04-08] MEDS: MAG SULF 1GM/100ML (MAG RUN) 1 GM in IV 1 EA IV SCH ×2 (05:32→07:52)
[2022-04-08] MEDS: HEPARIN SOD (PORCINE) 5000UNITS/ML 1ML VIAL/SYRINGE SC SCH (05:32)
[2022-04-08] MEDS: ONDANSETRON 4MG 2ML VIAL IV PRN (06:35)
[2022-04-08] MEDS ORDERED: LEVEMIR (INSULIN DETEMIR) 1 UNITS/0.01ML SC ONE (06:50)
[2022-04-08] MEDS: INSULIN LISPRO (NovoLOG) PER UNIT SC SCH ×2 (07:55→13:16)
[2022-04-08 07:57] VITALS: BP 130/70
[2022-04-08] MEDS ORDERED: PANTOPRAZOLE 40MG TAB (PROTONIX) PO SCH (09:00)
[2022-04-08] MEDS: METOCLOPRAMIDE 5 MG TAB PO SCH ×2 (09:36→13:16)
[2022-04-08 12:32] LABS: BLOOD UREA NITROGEN 17 MG/DL (9-23); CALCIUM LEVEL 8.7 MG/DL (8.5-10.1); CARBON DIOXIDE LEVEL 22 MMOL/L (20-31); CHLORIDE LEVEL 102 MMOL/L (98-107); CREATININE FOR GFR 1.16 MG/DL (0.55-1.30); GLOMERULAR FILTRATION RATE > 60.0 (>58); GLUCOSE, FASTING 172 MG/DL (60-100); POTASSIUM SERUM 3.6 MMOL/L (3.5-5.1); SODIUM LEVEL 135 MMOL/L (136-145)
[2022-04-08] MEDS ORDERED: BASA100I SC ×2 (14:10→14:32)
[2022-04-08] MEDS ORDERED: METO5TAB2 PO (14:10)
[2022-04-08] MEDS ORDERED: POTA1TAB14 PO (14:30)
[2022-04-08] MEDS ORDERED: LEVEMIR (INSULIN DETEMIR) 1 UNITS/0.01ML SC SCH (21:00)
== END 2022-04-08 16:09 | disposition home or self-care (01) | DRG 420 ==
LOC: M ED 15:47 → EDBD 15:47 → M ED INP 18:13 → ENRESERV 19:12 → M ICU 20:07
PROVIDERS: ADMIT Internal Medicine; ATTEND Internal Medicine
DX: E10.10 Type 1 diabetes mellitus with ketoacidosis without coma (principal); N17.9 Acute kidney failure, unspecified; E87.8 Other disorders of electrolyte and fluid balance, not elsewhere classified; E83.42 Hypomagnesemia; E88.09 Other disorders of plasma-protein metabolism, not elsewhere classified; R16.0 Hepatomegaly, not elsewhere classified; E10.43 Type 1 diabetes mellitus with diabetic autonomic (poly)neuropathy; E10.22 Type 1 diabetes mellitus with diabetic chronic kidney disease; N18.30 Chronic kidney disease, stage 3 unspecified; E83.39 Other disorders of phosphorus metabolism; K76.0 Fatty (change of) liver, not elsewhere classified; Z87.891 Personal history of nicotine dependence; Z79.4 Long term (current) use of insulin; Z79.899 Other long term (current) drug therapy; Z20.822 Contact with and (suspected) exposure to COVID-19; Z91.14 Patient's other noncompliance with medication regimen; D64.9 Anemia, unspecified; R74.01 Elevation of levels of liver transaminase levels; E87.1 Hypo-osmolality and hyponatremia; E10.65 Type 1 diabetes mellitus with hyperglycemia; R11.15 Cyclical vomiting syndrome unrelated to migraine

== ENCOUNTER 2022-05-05 16:31 | Inpatient (IN) | payer OTHER ==
[~2022-05-05] VITALS: Ht 170.2 cm; Wt 63.7 kg
[2022-05-05] MEDS ORDERED: NS 1,000 ML IV ONE (18:15)
[2022-05-05] MEDS ORDERED: ONDANSETRON 4MG 2ML VIAL IV ONE (18:20)
[2022-05-05 18:48] LABS: URINE PREG TEST NEGATIVE (NEGATIVE)
[2022-05-05 19:10] LABS: BASO % 0.5 % (0.0-1.0); EOS % 0.1 % (0.0-3.0); HEMATOCRIT 30.5 % (36.0-47.0); HEMOGLOBIN 10.3 g/dl (12.0-15.5); LYMPH # 0.7 10^3/uL (1.5-5.0); LYMPH % 8.6 % (24.0-44.0); MEAN CORPUSCULAR HGB CONC 33.8 g/dl (32.0-36.5); MEAN CORPUSCULAR VOLUME 85.9 fl (80.0-96.0); MONO # 0.5 10^3/uL (0.0-0.8); MONO % 5.9 % (2.0-8.0); NEUTROPHILS # 6.9 10^3/uL (1.5-8.5); NEUTROPHILS % 84.7 % (36.0-66.0); PLATELET COUNT, AUTOMATED 271 10^3/uL (150-450); RED BLOOD COUNT 3.55 10^6/uL (4.00-5.40); WHITE BLOOD COUNT 8.2 10^3/uL (4.0-10.0)
[2022-05-05 19:13] LABS: VENOUS BASE EXCESS 1.5 (-2.0-2.0); VENOUS HCO3 23.6 MEQ/L (23.0-27.0); VENOUS O2 SATURATION 99.4 % (60.0-80.0); VENOUS PARTIAL PRESSURE CO2 29.2 mmHg (38.0-50.0); VENOUS PARTIAL PRESSURE O2 190.5 mmHg (30.0-50.0); VENOUS PH 7.525 UNITS (7.330-7.430); VENOUS STANDARD HCO3 25.8 MEQ/L; VENOUS TOTAL CO2 24.5 MEQ/L (24.0-28.0)
[2022-05-05 19:16] LABS: OSMOLALITY SERUM 298 MOSM/KG (275-295)
[2022-05-05 19:18] LABS: LIPASE 31 U/L (12-53)
[2022-05-05 19:20] LABS: ALBUMIN 3.9 G/DL (3.2-5.2); ALKALINE PHOSPHATASE 84 U/L (46-116); ALT/SGPT 28 U/L (7.0-40); AST/SGOT 25 U/L (<34); BILIRUBIN,DIRECT 0.2 MG/DL (<0.4); BILIRUBIN,TOTAL 0.6 MG/DL (0.3-1.2); BLOOD UREA NITROGEN 24 MG/DL (9-23); CALCIUM LEVEL 9.6 MG/DL (8.5-10.1); CARBON DIOXIDE LEVEL 24 MMOL/L (20-31); CHLORIDE LEVEL 100 MMOL/L (98-107); CREATININE FOR GFR 1.18 MG/DL (0.55-1.30); GLOMERULAR FILTRATION RATE > 60.0 (>58); GLUCOSE, FASTING 232 MG/DL (60-100); MAGNESIUM LEVEL 1.7 MG/DL (1.8-2.4); POTASSIUM SERUM 3.9 MMOL/L (3.5-5.1); SODIUM LEVEL 138 MMOL/L (136-145); TOTAL PROTEIN 6.7 G/DL (5.7-8.2)
[2022-05-05] MEDS ORDERED: MAGNESIUM OXIDE 400MG TAB (MAG-OX) PO ONE (19:35)
[2022-05-05] MEDS ORDERED: METOCLOPRAMIDE INJ 10MG/2ML VIAL IV ONE (19:50)
[2022-05-05] MEDS ORDERED: MORPHINE 4 MG/ML 1ML VIAL IV ONE (19:50)
[2022-05-05] MEDS ORDERED: INSULIN LISPRO (NovoLOG) PER UNIT SC SCH (21:00)
[2022-05-05] MEDS ORDERED: GLUCAGON INJ 1MG VIAL SC PRN (23:10)
[2022-05-05] MEDS ORDERED: DEXTROSE 50% 50ML SYRINGE IV PRN (23:10)
[2022-05-05] MEDS ORDERED: GLUCOSE 4GM CHEW TABLET PO PRN (23:10)
[2022-05-05] MEDS ORDERED: PROMETHAZINE 25MG/ML 1ML VIAL IV PRN (23:10)
[2022-05-05] MEDS ORDERED: MAG SULF 1GM/100ML (MAG RUN) 1 GM in IV 1 EA IV ONE (23:30)
[2022-05-05] MEDS: NS 1,000 ML IV SCH (23:59)
[2022-05-06 00:48] LABS: RSV AMPLIFICATION NEGATIVE (NEGATIVE)
[2022-05-06 01:25] VITALS: BP 123/78
[2022-05-06] MEDS ORDERED: METO5TAB2 PO (01:44)
[2022-05-06] MEDS ORDERED: BASA100I SC (01:44)
[2022-05-06] MEDS ORDERED: HOME MED LIST COMPLETE! XX SCH (01:45)
[2022-05-06] MEDS ORDERED: ACETAMINOPHEN TAB 650MG DOSE (2X325MG) PO PRN (01:50)
[2022-05-06] MEDS ORDERED: MULTCHW12 PO (02:19)
[2022-05-06] MEDS ORDERED: METOCLOPRAMIDE INJ 10MG/2ML VIAL IV SCH (02:30)
[2022-05-06] MEDS: HEPARIN SOD (PORCINE) 5000UNITS/ML 1ML VIAL/SYRINGE SC SCH ×2 (05:43→14:00)
[2022-05-06 06:00] VITALS: BP 101/70
[2022-05-06 06:11] LABS: HEMATOCRIT 26.7 % (36.0-47.0); HEMOGLOBIN 8.9 g/dl (12.0-15.5); MEAN CORPUSCULAR HEMOGLOBIN 29.2 pg (27.0-33.0); MEAN CORPUSCULAR HGB CONC 33.3 g/dl (32.0-36.5); MEAN CORPUSCULAR VOLUME 87.5 fl (80.0-96.0); PLATELET COUNT, AUTOMATED 240 10^3/uL (150-450); RED BLOOD COUNT 3.05 10^6/uL (4.00-5.40); WHITE BLOOD COUNT 9.5 10^3/uL (4.0-10.0)
[2022-05-06 06:36] LABS: ALBUMIN 3.2 G/DL (3.2-5.2); BILIRUBIN,TOTAL 0.4 MG/DL (0.3-1.2); CALCIUM LEVEL 8.8 MG/DL (8.5-10.1); CREATININE FOR GFR 1.28 MG/DL (0.55-1.30); GLOMERULAR FILTRATION RATE 57.2 (>58); MAGNESIUM LEVEL 1.8 MG/DL (1.8-2.4); POTASSIUM SERUM 3.6 MMOL/L (3.5-5.1); TOTAL PROTEIN 5.7 G/DL (5.7-8.2)
[2022-05-06] MEDS: INSULIN LISPRO (NovoLOG) PER UNIT SC SCH ×2 (07:30→12:38)
[2022-05-06] MEDS ORDERED: METOCLOPRAMIDE INJ 10MG/2ML VIAL IV PRN (08:10)
[2022-05-06] MEDS: METOCLOPRAMIDE 10MG TAB PO SCH ×2 (08:54→12:00)
[2022-05-06] MEDS: NS 1,000 ML IV SCH (09:10)
[2022-05-06 11:10] LABS: HEMATOCRIT 29.1 % (36.0-47.0); HEMOGLOBIN 9.3 g/dl (12.0-15.5)
[2022-05-06] MEDS ORDERED: METO10TA2 PO (13:10)
[2022-05-06 14:00] VITALS: BP 124/79
[2022-05-06] MEDS ORDERED: GI COCKTAIL 50ML BTL(HYOSCYAMINE/MAALOX/LIDOCAINE VISCOUS)(1:3:1) PO ONE (15:00)
== END 2022-05-06 17:11 | disposition home or self-care (01) | DRG 249 ==
LOC: EDBD 16:31 → M ED 16:31 → M ED INP 23:08 → M MSPAV 05-06 01:18
PROVIDERS: ADMIT Family Medicine; ATTEND Family Medicine
DX: R11.2 Nausea with vomiting, unspecified (principal); E10.22 Type 1 diabetes mellitus with diabetic chronic kidney disease; E10.43 Type 1 diabetes mellitus with diabetic autonomic (poly)neuropathy; N18.30 Chronic kidney disease, stage 3 unspecified; E83.42 Hypomagnesemia; K31.84 Gastroparesis; Z87.891 Personal history of nicotine dependence; F12.188 Cannabis abuse with other cannabis-induced disorder; Z79.4 Long term (current) use of insulin; Z79.899 Other long term (current) drug therapy

== ENCOUNTER 2022-06-24 15:40 | Inpatient (IN) | payer OTHER ==
[~2022-06-24] VITALS: Ht 170.2 cm; Wt 66.2 kg
[~2022-06-24 15:40] MED LIST changes: +INSU100I6 SC; -LEVE1INJ5 SC; +MULTCHW12 PO
[2022-06-24] MEDS ORDERED: MORPHINE 4 MG/ML 1ML VIAL IV ONE (16:25)
[2022-06-24] MEDS ORDERED: ONDANSETRON 4MG 2ML VIAL IV ONE ×2 (16:25→21:25)
[2022-06-24] MEDS ORDERED: NS 1,000 ML IV ONE ×2 (16:25→18:10)
[2022-06-24 16:58] LABS: VENOUS HCO3 20.5 MEQ/L (23.0-27.0); VENOUS O2 SATURATION 49.4 % (60.0-80.0); VENOUS PARTIAL PRESSURE CO2 32.3 mmHg (38.0-50.0); VENOUS PARTIAL PRESSURE O2 25.7 mmHg (30.0-50.0); VENOUS PH 7.421 UNITS (7.330-7.430); VENOUS STANDARD HCO3 20.9 MEQ/L; VENOUS TOTAL CO2 21.5 MEQ/L (24.0-28.0)
[2022-06-24 17:22] LABS: BASO % 0.3 % (0.0-1.0); HEMOGLOBIN 10.5 g/dl (12.0-15.5); LYMPH # 0.5 10^3/uL (1.5-5.0); LYMPH % 4.8 % (24.0-44.0); MEAN CORPUSCULAR HEMOGLOBIN 28.7 pg (27.0-33.0); MEAN CORPUSCULAR HGB CONC 33.9 g/dl (32.0-36.5); MEAN CORPUSCULAR VOLUME 84.7 fl (80.0-96.0); MONO # 0.3 10^3/uL (0.0-0.8); MONO % 2.9 % (2.0-8.0); NEUTROPHILS # 9.4 10^3/uL (1.5-8.5); NEUTROPHILS % 91.6 % (36.0-66.0); PLATELET COUNT, AUTOMATED 265 10^3/uL (150-450); RED BLOOD COUNT 3.66 10^6/uL (4.00-5.40); WHITE BLOOD COUNT 10.3 10^3/uL (4.0-10.0)
[2022-06-24 17:24] LABS: HEMOGLOBIN A1c 8.6 % (4.0-6.0)
[2022-06-24 17:28] LABS: ACETONE/KETONE 4.5 MMOL/L (0.02-0.27)
[2022-06-24 17:39] LABS: BILIRUBIN,DIRECT 0.3 MG/DL (<0.4); BILIRUBIN,TOTAL 1.1 MG/DL (0.3-1.2); CALCIUM LEVEL 10.6 MG/DL (8.5-10.1); CREATININE FOR GFR 1.26 MG/DL (0.55-1.30); GLOMERULAR FILTRATION RATE 58.2 (>58); POTASSIUM SERUM 5.4 MMOL/L (3.5-5.1); TOTAL PROTEIN 8.3 G/DL (5.7-8.2)
[2022-06-24] MEDS ORDERED: HumuLIN R (REGULAR) INSULIN (NovoLIN R) **100U/ML** PER UNIT IV ONE ×2 (18:05→18:15)
[2022-06-24] MEDS ORDERED: HOME MED LIST COMPLETE! XX SCH (18:35)
[2022-06-24 20:11] LABS: RSV AMPLIFICATION NEGATIVE (NEGATIVE)
[2022-06-24 21:30] LABS: BLOOD UREA NITROGEN 28 MG/DL (9-23); CALCIUM LEVEL 9.4 MG/DL (8.5-10.1); CARBON DIOXIDE LEVEL 16 MMOL/L (20-31); CHLORIDE LEVEL 107 MMOL/L (98-107); GLOMERULAR FILTRATION RATE > 60.0 (>58); GLUCOSE, FASTING 190 MG/DL (60-100); POTASSIUM SERUM 4.7 MMOL/L (3.5-5.1); SODIUM LEVEL 139 MMOL/L (136-145)
[2022-06-24] MEDS ORDERED: GLUCOSE 4GM CHEW TABLET PO PRN (22:25)
[2022-06-24] MEDS ORDERED: GLUCAGON INJ 1MG VIAL SC PRN (22:25)
[2022-06-24] MEDS: LR 1,000 ML IV SCH (22:39)
[2022-06-24] MEDS: METOCLOPRAMIDE INJ 10MG/2ML VIAL IV PRN (23:19)
[2022-06-24] MEDS: INSULIN LISPRO (NovoLOG) PER UNIT SC SCH (23:46)
[2022-06-25 00:21] LABS: BLOOD UREA NITROGEN 17 MG/DL (9-23); CALCIUM LEVEL 9.5 MG/DL (8.5-10.1); CARBON DIOXIDE LEVEL 16 MMOL/L (20-31); CHLORIDE LEVEL 107 MMOL/L (98-107); CREATININE FOR GFR 1.14 MG/DL (0.55-1.30); GLOMERULAR FILTRATION RATE > 60.0 (>58); GLUCOSE, FASTING 231 MG/DL (60-100); PHOSPHORUS LEVEL 4.8 MG/DL (2.5-4.9); POTASSIUM SERUM 4.3 MMOL/L (3.5-5.1); SODIUM LEVEL 138 MMOL/L (136-145)
[2022-06-25 03:18] VITALS: BP 140/78
[2022-06-25] MEDS: INSULIN LISPRO (NovoLOG) PER UNIT SC SCH ×4 (03:27→17:30)
[2022-06-25] MEDS: KETOROLAC 30 MG/ML 1ML VIAL IV PRN ×2 (03:28→09:10)
[2022-06-25 04:52] LABS: CALCIUM LEVEL 8.6 MG/DL (8.5-10.1); CREATININE FOR GFR 1.24 MG/DL (0.55-1.30); GLOMERULAR FILTRATION RATE 59.3 (>58); PHOSPHORUS LEVEL 4.6 MG/DL (2.5-4.9); POTASSIUM SERUM 4.2 MMOL/L (3.5-5.1)
[2022-06-25] MEDS: HEPARIN SOD (PORCINE) 5000UNITS/ML 1ML VIAL/SYRINGE SC SCH ×3 (05:32→21:11)
[2022-06-25] MEDS ORDERED: LEVEMIR (INSULIN DETEMIR) 1 UNITS/0.01ML SC SCH (07:00)
[2022-06-25] MEDS: LR 1,000 ML IV SCH ×2 (07:18→18:04)
[2022-06-25 07:49] VITALS: BP 144/63
[2022-06-25] MEDS: METOCLOPRAMIDE INJ 10MG/2ML VIAL IV PRN (07:50)
[2022-06-25 08:07] LABS: VENOUS BASE EXCESS -3.8 (-2.0-2.0); VENOUS HCO3 19.2 MEQ/L (23.0-27.0); VENOUS O2 SATURATION 99.3 % (60.0-80.0); VENOUS PARTIAL PRESSURE CO2 28.5 mmHg (38.0-50.0); VENOUS PARTIAL PRESSURE O2 264.6 mmHg (30.0-50.0); VENOUS PH 7.446 UNITS (7.330-7.430); VENOUS STANDARD HCO3 21.3 MEQ/L; VENOUS TOTAL CO2 20.1 MEQ/L (24.0-28.0)
[2022-06-25 08:20] LABS: BASO # 0.1 10^3/uL (0.0-0.2); BASO % 0.3 % (0.0-1.0); EOS % 0.1 % (0.0-3.0); HEMATOCRIT 29.1 % (36.0-47.0); LYMPH # 1.4 10^3/uL (1.5-5.0); LYMPH % 9.2 % (24.0-44.0); MEAN CORPUSCULAR HEMOGLOBIN 29.3 pg (27.0-33.0); MEAN CORPUSCULAR HGB CONC 34.4 g/dl (32.0-36.5); MEAN CORPUSCULAR VOLUME 85.3 fl (80.0-96.0); MONO # 0.9 10^3/uL (0.0-0.8); NEUTROPHILS # 13.1 10^3/uL (1.5-8.5); PLATELET COUNT, AUTOMATED 255 10^3/uL (150-450); RED BLOOD COUNT 3.41 10^6/uL (4.00-5.40); WHITE BLOOD COUNT 15.6 10^3/uL (4.0-10.0)
[2022-06-25 08:37] LABS: CALCIUM LEVEL 8.7 MG/DL (8.5-10.1); CREATININE FOR GFR 1.31 MG/DL (0.55-1.30); GLOMERULAR FILTRATION RATE 55.7 (>58); PHOSPHORUS LEVEL 3.9 MG/DL (2.5-4.9); POTASSIUM SERUM 3.8 MMOL/L (3.5-5.1)
[2022-06-25 11:35] VITALS: BP 104/62
[2022-06-25 12:24] LABS: FREE T4 0.93 NG/DL (0.89-1.76); THYROID STIMULATING HORMONE 1.005 uIU/ML (0.55-4.78)
[2022-06-25] MEDS: PANTOPRAZOLE 40MG TAB (PROTONIX) PO SCH ×2 (12:43→21:11)
[2022-06-25] MEDS ORDERED: LEVEMIR (INSULIN DETEMIR) 1 UNITS/0.01ML SC ONE (13:05)
[2022-06-25] MEDS: PERCOCET 5MG/325MG TAB PO PRN ×3 (13:44→23:56)
[2022-06-25 16:24] LABS: CALCIUM LEVEL 8.1 MG/DL (8.5-10.1); CREATININE FOR GFR 1.24 MG/DL (0.55-1.30); GLOMERULAR FILTRATION RATE 59.3 (>58); POTASSIUM SERUM 3.6 MMOL/L (3.5-5.1)
[2022-06-25 16:40] VITALS: BP 98/62
[2022-06-25] MEDS: ONDANSETRON 4MG 2ML VIAL IV PRN (18:17)
[2022-06-25 20:28] VITALS: BP 114/70
[2022-06-25] MEDS ORDERED: INSULIN LISPRO (NovoLOG) PER UNIT SC SCH (21:00)
[2022-06-25 23:22] VITALS: BP 122/68
[2022-06-26] MEDS: DEXTROSE 50% 50ML SYRINGE IV PRN ×2 (00:03→18:27)
[2022-06-26] MEDS: LR 1,000 ML IV SCH (04:18)
[2022-06-26 04:52] VITALS: BP 148/86
[2022-06-26] MEDS: HEPARIN SOD (PORCINE) 5000UNITS/ML 1ML VIAL/SYRINGE SC SCH ×3 (05:56→20:29)
[2022-06-26] MEDS ORDERED: METOCLOPRAMIDE 5 MG TAB PO SCH (06:00)
[2022-06-26 06:56] LABS: HEMATOCRIT 24.8 % (36.0-47.0); HEMOGLOBIN 8.2 g/dl (12.0-15.5); MEAN CORPUSCULAR HEMOGLOBIN 28.4 pg (27.0-33.0); MEAN CORPUSCULAR HGB CONC 33.1 g/dl (32.0-36.5); MEAN CORPUSCULAR VOLUME 85.8 fl (80.0-96.0); PLATELET COUNT, AUTOMATED 199 10^3/uL (150-450); RED BLOOD COUNT 2.89 10^6/uL (4.00-5.40); WHITE BLOOD COUNT 7.9 10^3/uL (4.0-10.0)
[2022-06-26] MEDS: PERCOCET 5MG/325MG TAB PO PRN ×3 (07:22→15:48)
[2022-06-26 07:24] LABS: CREATININE FOR GFR 1.28 MG/DL (0.55-1.30); GLOMERULAR FILTRATION RATE 57.2 (>58); MAGNESIUM LEVEL 1.4 MG/DL (1.8-2.4); PHOSPHORUS LEVEL 3.6 MG/DL (2.5-4.9); POTASSIUM SERUM 3.5 MMOL/L (3.5-5.1)
[2022-06-26] MEDS: INSULIN LISPRO (NovoLOG) PER UNIT SC SCH (07:30)
[2022-06-26 07:38] VITALS: BP 155/85
[2022-06-26] MEDS: PANTOPRAZOLE 40MG TAB (PROTONIX) PO SCH ×2 (09:00→20:28)
[2022-06-26] MEDS ORDERED: LEVEMIR (INSULIN DETEMIR) 1 UNITS/0.01ML SC SCH (09:00)
[2022-06-26 09:01] LABS: FERRITIN 32.1 NG/ML (7.3-270.7)
[2022-06-26] MEDS ORDERED: ISOVUE-370 76% 100ML VIAL As Ordered ONE (09:36)
[2022-06-26] MEDS: MAG SULF 1GM/100ML (MAG RUN) 1 GM in IV 1 EA IV SCH ×2 (10:30→12:48)
[2022-06-26 10:49] LABS: APPEARANCE, URINE CLOUDY (CLEAR); BACTERIA, URINE AUTO 1+ (NEGATIVE); BILIRUBIN, URINE AUTO NEGATIVE (NEGATIVE); BLOOD, URINE BLOOD NEGATIVE (NEGATIVE); COLOR, URINE YELLOW (YELLOW); GLUCOSE, URINE (UA) AUTO 3+ mg/dL (NEGATIVE); KETONE, URINE AUTO 1+ mg/dL (NEGATIVE); LEUKOCYTE ESTERASE, URINE AUTO 3+ (NEGATIVE); MUCUS, URINE SMALL (NEGATIVE); NITRITE, URINE AUTO NEGATIVE (NEGATIVE); PROTEIN, URINE AUTO 1+ mg/dL (NEGATIVE); RBC, URINE AUTO 3 /HPF (0-3); SPECIFIC GRAVITY URINE AUTO 1.024 (1.002-1.035); SQUAMOUS EPITHELIAL CELL UR AU 24 /HPF (0-6); UROBILINOGEN, URINE AUTO 0.2 mg/dL (0.0-2.0); WBC, URINE AUTO 132 /HPF (0-3)
[2022-06-26] MEDS: SUCRALFATE SUSP 1GM/10ML UD PO SCH ×3 (12:00→20:23)
[2022-06-26] MEDS ORDERED: METOCLOPRAMIDE 5 MG TAB PO ONE (12:00)
[2022-06-26 12:29] VITALS: BP 132/92
[2022-06-26 12:43] LABS: HEMATOCRIT 30.9 % (36.0-47.0); HEMOGLOBIN 10.1 g/dl (12.0-15.5)
[2022-06-26 13:21] LABS: MAGNESIUM LEVEL 1.5 MG/DL (1.8-2.4)
[2022-06-26] MEDS ORDERED: MAGNESIUM OXIDE 400MG TAB (MAG-OX) PO ONE (14:20)
[2022-06-26] MEDS ORDERED: INSULIN LISPRO (NovoLOG) PER UNIT SC ONE (14:40)
[2022-06-26 15:55] VITALS: BP 152/60
[2022-06-26] MEDS ORDERED: INSULIN LISPRO (NovoLOG) PER UNIT SC SCH ×5 (17:30→21:00)
[2022-06-26 18:17] LABS: HIV 1&2 SCREEN CENTAUR NEGATIVE (NEGATIVE)
[2022-06-26 18:55] LABS: HCG, SERUM QUANTITATIVE < 2.6 MIU/ML (<4.2)
[2022-06-26] MEDS: METOCLOPRAMIDE 5 MG TAB PO SCH (20:28)
[2022-06-26 20:31] VITALS: BP 124/65
[2022-06-26 20:40] VITALS: BP 134/78
[2022-06-27] MEDS: PERCOCET 5MG/325MG TAB PO PRN (05:15)
[2022-06-27] MEDS: ONDANSETRON 4MG 2ML VIAL IV PRN (05:34)
[2022-06-27] MEDS: METOCLOPRAMIDE 5 MG TAB PO SCH ×3 (06:00→08:58)
[2022-06-27] MEDS: HEPARIN SOD (PORCINE) 5000UNITS/ML 1ML VIAL/SYRINGE SC SCH ×2 (06:00→12:33)
[2022-06-27 07:07] LABS: HEMATOCRIT 26.5 % (36.0-47.0); HEMOGLOBIN 8.9 g/dl (12.0-15.5); MEAN CORPUSCULAR HEMOGLOBIN 28.6 pg (27.0-33.0); MEAN CORPUSCULAR HGB CONC 33.6 g/dl (32.0-36.5); MEAN CORPUSCULAR VOLUME 85.2 fl (80.0-96.0); PLATELET COUNT, AUTOMATED 209 10^3/uL (150-450); RED BLOOD COUNT 3.11 10^6/uL (4.00-5.40); WHITE BLOOD COUNT 5.3 10^3/uL (4.0-10.0)
[2022-06-27 07:30] LABS: BLOOD UREA NITROGEN 15 MG/DL (9-23); CALCIUM LEVEL 8.6 MG/DL (8.5-10.1); CARBON DIOXIDE LEVEL 24 MMOL/L (20-31); CHLORIDE LEVEL 102 MMOL/L (98-107); CREATININE FOR GFR 1.06 MG/DL (0.55-1.30); GLOMERULAR FILTRATION RATE > 60.0 (>58); GLUCOSE, FASTING 132 MG/DL (60-100); POTASSIUM SERUM 3.4 MMOL/L (3.5-5.1); SODIUM LEVEL 137 MMOL/L (136-145)
[2022-06-27] MEDS: INSULIN LISPRO (NovoLOG) PER UNIT SC SCH ×3 (07:30→17:27)
[2022-06-27] MEDS: SUCRALFATE SUSP 1GM/10ML UD PO SCH ×3 (08:55→17:27)
[2022-06-27] MEDS: PANTOPRAZOLE 40MG TAB (PROTONIX) PO SCH (08:56)
[2022-06-27] MEDS: POTASSIUM CHLORIDE 10MEQ SR TABLET PO ONE ×2 (08:57→09:12)
[2022-06-27] MEDS ORDERED: CEFDINIR 300 MG CAP (OMNICEF) PO SCH (09:00)
[2022-06-27] MEDS ORDERED: LEVEMIR (INSULIN DETEMIR) 1 UNITS/0.01ML SC SCH (09:00)
[2022-06-27] MEDS ORDERED: MORPHINE 2 MG/ML 1ML VIAL IV PRN (09:30)
[2022-06-27 14:00] VITALS: BP 133/73
[2022-06-27] MEDS ORDERED: INSULIN LISPRO (NovoLOG) PER UNIT SC SCH (21:00)
[2022-06-28] MEDS ORDERED: D5W/0.45% SODIUM CHLORIDE 1,000 ML IV SCH
[2022-06-28] MEDS ORDERED: LevoFLOXacin 750 MG TABLET PO SCH (06:00)
== END 2022-06-27 19:38 | disposition left against medical advice (07) | DRG 48 ==
LOC: EDBD 15:40 → M ED 18:35 → M ED INP 22:20 → M PCU 06-25 03:11 → OBSVTOIN 06-26 14:18 → M MSPAV 06-26 20:40
PROVIDERS: ADMIT Internal Medicine; ATTEND Internal Medicine
DX: E10.43 Type 1 diabetes mellitus with diabetic autonomic (poly)neuropathy (principal); N17.9 Acute kidney failure, unspecified; K75.81 Nonalcoholic steatohepatitis (NASH); E10.65 Type 1 diabetes mellitus with hyperglycemia; K31.84 Gastroparesis; F12.188 Cannabis abuse with other cannabis-induced disorder; R11.10 Vomiting, unspecified; E73.9 Lactose intolerance, unspecified; D64.9 Anemia, unspecified; N83.202 Unspecified ovarian cyst, left side; E10.10 Type 1 diabetes mellitus with ketoacidosis without coma; E10.40 Type 1 diabetes mellitus with diabetic neuropathy, unspecified; Z86.16 Personal history of COVID-19; Z87.891 Personal history of nicotine dependence; Z79.4 Long term (current) use of insulin

== ENCOUNTER 2022-07-28 17:50 | Observation (INO) | payer OTHER ==
[~2022-07-28] VITALS: Ht 170.2 cm; Wt 68.2 kg
[2022-07-28 18:30] LABS: VENOUS BASE EXCESS -4.8 (-2.0-2.0); VENOUS HCO3 19.4 MEQ/L (23.0-27.0); VENOUS PARTIAL PRESSURE CO2 32.8 mmHg (38.0-50.0); VENOUS PARTIAL PRESSURE O2 77.8 mmHg (30.0-50.0); VENOUS PH 7.389 UNITS (7.330-7.430); VENOUS STANDARD HCO3 20.5 MEQ/L; VENOUS TOTAL CO2 20.4 MEQ/L (24.0-28.0)
[2022-07-28] MEDS ORDERED: HALOPERIDOL 5MG/ML 1ML VIAL IV ONE ×2 (18:35→21:50)
[2022-07-28] MEDS ORDERED: NS 2,050 ML in IV 1 EA IV ONE (18:35)
[2022-07-28 18:45] LABS: BASO # 0.1 10^3/uL (0.0-0.2); BASO % 0.6 % (0.0-1.0); EOS # 0.1 10^3/uL (0.0-0.5); EOS % 0.8 % (0.0-3.0); HEMATOCRIT 31.5 % (36.0-47.0); HEMOGLOBIN 10.6 g/dl (12.0-15.5); LYMPH # 1.9 10^3/uL (1.5-5.0); LYMPH % 23.4 % (24.0-44.0); MEAN CORPUSCULAR HEMOGLOBIN 29.2 pg (27.0-33.0); MEAN CORPUSCULAR HGB CONC 33.7 g/dl (32.0-36.5); MEAN CORPUSCULAR VOLUME 86.8 fl (80.0-96.0); MONO # 0.5 10^3/uL (0.0-0.8); MONO % 6.4 % (2.0-8.0); NEUTROPHILS # 5.5 10^3/uL (1.5-8.5); NEUTROPHILS % 68.5 % (36.0-66.0); RED BLOOD COUNT 3.63 10^6/uL (4.00-5.40)
[2022-07-28 18:52] LABS: HEMOGLOBIN A1c 8.7 % (4.0-6.0)
[2022-07-28 18:58] LABS: LIPASE 24 U/L (12-53)
[2022-07-28 19:00] LABS: ALBUMIN 4.4 G/DL (3.2-5.2); ALKALINE PHOSPHATASE 63 U/L (46-116); ALT/SGPT 21 U/L (7.0-40); AST/SGOT 21 U/L (<34); BILIRUBIN,DIRECT 0.2 MG/DL (<0.4); BILIRUBIN,TOTAL 0.7 MG/DL (0.3-1.2); BLOOD UREA NITROGEN 24 MG/DL (9-23); CALCIUM LEVEL 9.4 MG/DL (8.5-10.1); CARBON DIOXIDE LEVEL 19 MMOL/L (20-31); CHLORIDE LEVEL 104 MMOL/L (98-107); GLOMERULAR FILTRATION RATE > 60.0 (>58); GLUCOSE, FASTING 272 MG/DL (60-100); POTASSIUM SERUM 4.6 MMOL/L (3.5-5.1); SODIUM LEVEL 136 MMOL/L (136-145); TOTAL PROTEIN 7.3 G/DL (5.7-8.2)
[2022-07-28 19:10] LABS: PLATELET COUNT, AUTOMATED 164 10^3/uL (150-450)
[2022-07-28] MEDS ORDERED: METOCLOPRAMIDE INJ 10MG/2ML VIAL IV ONE (19:25)
[2022-07-28 19:32] LABS: RSV AMPLIFICATION NEGATIVE (NEGATIVE)
[2022-07-28] MEDS: MORPHINE 2 MG/ML 1ML VIAL IV PRN ×2 (19:34→23:27)
[2022-07-28 19:50] LABS: OSMOLALITY SERUM 300 MOSM/KG (275-295)
[2022-07-28] MEDS ORDERED: ONDANSETRON 4MG 2ML VIAL IV ONE (20:25)
[2022-07-28] MEDS ORDERED: ISOVUE-370 76% 100ML VIAL As Ordered ONE (22:25)
[2022-07-28] MEDS ORDERED: GLUCOSE 4GM CHEW TABLET PO PRN (23:55)
[2022-07-28] MEDS ORDERED: NS 1,000 ML IV SCH (23:55)
[2022-07-28] MEDS ORDERED: GLUCAGON INJ 1MG VIAL SC PRN (23:55)
[2022-07-28] MEDS ORDERED: ACETAMINOPHEN TAB 650MG DOSE (2X325MG) PO PRN (23:55)
[2022-07-28] MEDS ORDERED: DEXTROSE 50% 50ML SYRINGE IV PRN (23:55)
[2022-07-29] MEDS: METOCLOPRAMIDE INJ 10MG/2ML VIAL IV SCH ×3 (00:31→12:28)
[2022-07-29] MEDS ORDERED: ONDANSETRON 4MG 2ML VIAL IV PRN (00:35)
[2022-07-29] MEDS ORDERED: ACETAMINOPHEN 1000MG 100ML IV BAG IV ONE (00:40)
[2022-07-29] MEDS ORDERED: KETOROLAC 30 MG/ML 1ML VIAL IV PRN (00:40)
[2022-07-29] MEDS ORDERED: INSU100I38 SC (00:45)
[2022-07-29] MEDS ORDERED: HOME MED LIST COMPLETE! XX SCH (00:50)
[2022-07-29] MEDS: INSULIN LISPRO (NovoLOG) PER UNIT SC SCH ×6 (01:15→18:21)
[2022-07-29 01:20] VITALS: BP 132/59
[2022-07-29 02:50] LABS: BLOOD UREA NITROGEN 17 MG/DL (9-23); CALCIUM LEVEL 8.7 MG/DL (8.5-10.1); CARBON DIOXIDE LEVEL 15 MMOL/L (20-31); CHLORIDE LEVEL 106 MMOL/L (98-107); CREATININE FOR GFR 1.08 MG/DL (0.55-1.30); GLOMERULAR FILTRATION RATE > 60.0 (>58); GLUCOSE, FASTING 246 MG/DL (60-100); MAGNESIUM LEVEL 1.4 MG/DL (1.8-2.4); POTASSIUM SERUM 3.9 MMOL/L (3.5-5.1); SODIUM LEVEL 136 MMOL/L (136-145)
[2022-07-29] MEDS: MAG SULF 1GM/100ML (MAG RUN) 1 GM in IV 1 EA IV SCH ×2 (03:19→04:28)
[2022-07-29 04:00] VITALS: BP 92/58
[2022-07-29 06:31] VITALS: BP 162/88
[2022-07-29 06:45] LABS: HEMATOCRIT 29.7 % (36.0-47.0); HEMOGLOBIN 10.2 g/dl (12.0-15.5); MEAN CORPUSCULAR HEMOGLOBIN 29.4 pg (27.0-33.0); MEAN CORPUSCULAR HGB CONC 34.3 g/dl (32.0-36.5); MEAN CORPUSCULAR VOLUME 85.6 fl (80.0-96.0); PLATELET COUNT, AUTOMATED 236 10^3/uL (150-450); RED BLOOD COUNT 3.47 10^6/uL (4.00-5.40); WHITE BLOOD COUNT 11.5 10^3/uL (4.0-10.0)
[2022-07-29] MEDS ORDERED: D5W/0.9% SODIUM CHLORIDE 1,000 ML IV SCH (06:55)
[2022-07-29 07:00] LABS: ALBUMIN 4.1 G/DL (3.2-5.2); ALKALINE PHOSPHATASE 61 U/L (46-116); ALT/SGPT 21 U/L (7.0-40); AST/SGOT 22 U/L (<34); BILIRUBIN,TOTAL 0.5 MG/DL (0.3-1.2); BLOOD UREA NITROGEN 25 MG/DL (9-23); CALCIUM LEVEL 9.3 MG/DL (8.5-10.1); CARBON DIOXIDE LEVEL 22 MMOL/L (20-31); CHLORIDE LEVEL 108 MMOL/L (98-107); CREATININE FOR GFR 1.19 MG/DL (0.55-1.30); GLOMERULAR FILTRATION RATE > 60.0 (>58); GLUCOSE, FASTING 76 MG/DL (60-100); MAGNESIUM LEVEL 2.3 MG/DL (1.8-2.4); POTASSIUM SERUM 3.9 MMOL/L (3.5-5.1); SODIUM LEVEL 138 MMOL/L (136-145); TOTAL PROTEIN 7.2 G/DL (5.7-8.2)
[2022-07-29 08:04] VITALS: BP 153/70
[2022-07-29] MEDS: SUCRALFATE SUSP 1GM/10ML UD PO SCH ×3 (08:52→18:00)
[2022-07-29] MEDS ORDERED: DICYCLOMINE INJ 20MG/2ML IM ONE (09:00)
[2022-07-29] MEDS ORDERED: PANTOPRAZOLE 40MG VIAL IV SCH (09:00)
[2022-07-29] MEDS: ENOXAPARIN 40MG/0.4ML SYRINGE (J1650 PER 10MG) SC SCH (09:27)
[2022-07-29] MEDS: PANTOPRAZOLE 40MG VIAL IV SCH ×2 (09:28→21:36)
[2022-07-29] MEDS ORDERED: PROMETHAZINE 25MG/ML 1ML VIAL IV ONE (09:30)
[2022-07-29 11:30] VITALS: BP 122/71
[2022-07-29] MEDS ORDERED: GI COCKTAIL 50ML BTL(HYOSCYAMINE/MAALOX/LIDOCAINE VISCOUS)(1:3:1) PO PRN (12:00)
[2022-07-29] MEDS: KETOROLAC 30 MG/ML 1ML VIAL IV SCH ×2 (12:28→18:20)
[2022-07-29] MEDS: AMITRIPTYLINE 10MG TABLET PO SCH (21:00)
[2022-07-29 22:00] VITALS: BP 103/57
[2022-07-30] MEDS: INSULIN LISPRO (NovoLOG) PER UNIT SC SCH ×5 (00:23→23:41)
[2022-07-30] MEDS: KETOROLAC 30 MG/ML 1ML VIAL IV SCH ×2 (00:24→06:35)
[2022-07-30] MEDS: SUCRALFATE SUSP 1GM/10ML UD PO SCH ×5 (06:00→20:42)
[2022-07-30 06:21] VITALS: BP 144/80
[2022-07-30 07:51] LABS: BASO # 0.1 10^3/uL (0.0-0.2); BASO % 0.8 % (0.0-1.0); EOS % 0.5 % (0.0-3.0); HEMATOCRIT 28.5 % (36.0-47.0); HEMOGLOBIN 9.8 g/dl (12.0-15.5); LYMPH # 1.7 10^3/uL (1.5-5.0); LYMPH % 23.5 % (24.0-44.0); MEAN CORPUSCULAR HEMOGLOBIN 29.3 pg (27.0-33.0); MEAN CORPUSCULAR HGB CONC 34.4 g/dl (32.0-36.5); MEAN CORPUSCULAR VOLUME 85.3 fl (80.0-96.0); MONO # 0.6 10^3/uL (0.0-0.8); MONO % 8.2 % (2.0-8.0); NEUTROPHILS # 4.9 10^3/uL (1.5-8.5); NEUTROPHILS % 66.7 % (36.0-66.0); PLATELET COUNT, AUTOMATED 226 10^3/uL (150-450); RED BLOOD COUNT 3.34 10^6/uL (4.00-5.40); WHITE BLOOD COUNT 7.4 10^3/uL (4.0-10.0)
[2022-07-30 08:21] LABS: C REACTIVE PROTEIN QUANTITATIV 1.4 MG/DL (<1.0)
[2022-07-30] MEDS ORDERED: METOCLOPRAMIDE INJ 10MG/2ML VIAL IV ONE (08:25)
[2022-07-30 08:27] LABS: ALBUMIN 3.8 G/DL (3.2-5.2); BILIRUBIN,TOTAL 0.9 MG/DL (0.3-1.2); CALCIUM LEVEL 8.8 MG/DL (8.5-10.1); CREATININE FOR GFR 1.39 MG/DL (0.55-1.30); TOTAL PROTEIN 6.5 G/DL (5.7-8.2)
[2022-07-30 08:37] LABS: ERYTHROCYTE SEDIMENTATION RATE 14 mm/hr (0-20)
[2022-07-30] MEDS: PANTOPRAZOLE 40MG TAB (PROTONIX) PO SCH ×2 (09:14→20:42)
[2022-07-30] MEDS: ENOXAPARIN 40MG/0.4ML SYRINGE (J1650 PER 10MG) SC SCH (09:14)
[2022-07-30] MEDS: METOCLOPRAMIDE 10MG TAB PO SCH ×3 (12:09→20:42)
[2022-07-30] MEDS: IBUPROFEN 400MG TAB PO SCH ×2 (12:30→17:58)
[2022-07-30 14:00] VITALS: BP 107/73
[2022-07-30] MEDS ORDERED: DICYCLOMINE INJ 20MG/2ML IM ONE (14:00)
[2022-07-30] MEDS ORDERED: DICYCLOMINE 10 MG CAP PO SCH (17:30)
[2022-07-30 20:42] VITALS: BP 115/65
[2022-07-30] MEDS: AMITRIPTYLINE 10MG TABLET PO SCH (20:42)
[2022-07-30] MEDS ORDERED: INSULIN LISPRO (NovoLOG) PER UNIT SC ONE (20:50)
[2022-07-31] MEDS: SUCRALFATE SUSP 1GM/10ML UD PO SCH ×3 (06:00→12:13)
[2022-07-31] MEDS: INSULIN LISPRO (NovoLOG) PER UNIT SC SCH ×2 (06:00→12:13)
[2022-07-31 06:06] VITALS: BP 125/69
[2022-07-31] MEDS ORDERED: ACETAMINOPHEN 1000MG 100ML IV BAG IV ONE (07:10)
[2022-07-31] MEDS ORDERED: NS 1,000 ML IV ONE (07:10)
[2022-07-31] MEDS ORDERED: NS 1,000 ML IV SCH (07:15)
[2022-07-31] MEDS ORDERED: EPIDURAL/PCA KEYS XX PRN (07:15)
[2022-07-31] MEDS ORDERED: HYDROMORPHONE HCL 0.5 MG/ 0.5 ML SYRINGE IV ONE (07:15)
[2022-07-31] MEDS ORDERED: NALOXONE INJ 0.4MG/1ML VIAL IV PRN (07:15)
[2022-07-31] MEDS ORDERED: diphenhydrAMINE 50MG/ML VIAL IV PRN (07:15)
[2022-07-31] MEDS ORDERED: D5W 1,000 ML IV SCH (07:15)
[2022-07-31] MEDS ORDERED: MOM 30ML SUSPENSION UDC PO PRN (07:15)
[2022-07-31] MEDS ORDERED: ONDANSETRON 4MG 2ML VIAL IV PRN (07:15)
[2022-07-31] MEDS ORDERED: GI COCKTAIL 50ML BTL(HYOSCYAMINE/MAALOX/LIDOCAINE VISCOUS)(1:3:1) PO ONE (07:15)
[2022-07-31] MEDS ORDERED: MORPHINE 1MG/ML IN 0.9% NACL 100ML IV BAG IV PRN (07:15)
[2022-07-31] MEDS ORDERED: PERCOCET 5MG/325MG TAB PO PRN (07:45)
[2022-07-31] MEDS ORDERED: MORPHINE 2 MG/ML 1ML VIAL IV PRN (07:45)
[2022-07-31 08:00] VITALS: BP 117/71
[2022-07-31] MEDS ORDERED: PANTOPRAZOLE 40MG VIAL IV ONE (08:00)
[2022-07-31 08:02] LABS: BASO # 0.1 10^3/uL (0.0-0.2); BASO % 0.6 % (0.0-1.0); EOS % 0.3 % (0.0-3.0); HEMATOCRIT 29.5 % (36.0-47.0); HEMOGLOBIN 9.8 g/dl (12.0-15.5); LYMPH # 1.6 10^3/uL (1.5-5.0); LYMPH % 19.5 % (24.0-44.0); MEAN CORPUSCULAR HGB CONC 33.2 g/dl (32.0-36.5); MEAN CORPUSCULAR VOLUME 87.3 fl (80.0-96.0); MONO # 0.5 10^3/uL (0.0-0.8); MONO % 6.7 % (2.0-8.0); NEUTROPHILS # 5.8 10^3/uL (1.5-8.5); NEUTROPHILS % 72.4 % (36.0-66.0); PLATELET COUNT, AUTOMATED 154 10^3/uL (150-450); RED BLOOD COUNT 3.38 10^6/uL (4.00-5.40)
[2022-07-31 08:11] LABS: ERYTHROCYTE SEDIMENTATION RATE 13 mm/hr (0-20)
[2022-07-31 08:16] LABS: C REACTIVE PROTEIN QUANTITATIV 2.2 MG/DL (<1.0)
[2022-07-31 08:18] LABS: ALBUMIN 4.1 G/DL (3.2-5.2); BILIRUBIN,TOTAL 0.8 MG/DL (0.3-1.2); CALCIUM LEVEL 9.5 MG/DL (8.5-10.1); CREATININE FOR GFR 1.29 MG/DL (0.55-1.30); GLOMERULAR FILTRATION RATE 56.7 (>58); POTASSIUM SERUM 4.1 MMOL/L (3.5-5.1); TOTAL PROTEIN 6.9 G/DL (5.7-8.2)
[2022-07-31 08:37] LABS: HEMOGLOBIN A1c 8.5 % (4.0-6.0)
[2022-07-31] MEDS ORDERED: SENOKOT S TAB PO SCH (09:00)
[2022-07-31] MEDS ORDERED: PROMETHAZINE 25MG/ML 1ML VIAL IV SCH (09:00)
[2022-07-31] MEDS: ENOXAPARIN 40MG/0.4ML SYRINGE (J1650 PER 10MG) SC SCH (09:12)
[2022-07-31] MEDS: DICYCLOMINE INJ 20MG/2ML IM ONE ×2 (09:38→09:44)
[2022-07-31] MEDS ORDERED: AMIT10TA7 PO (11:04)
[2022-07-31] MEDS ORDERED: PROTPAK PO (11:04)
[2022-07-31] MEDS ORDERED: CARA1TAB6 PO (11:04)
[2022-07-31] MEDS ORDERED: REGL10TA6 PO (11:04)
[2022-07-31] MEDS ORDERED: METOCLOPRAMIDE INJ 10MG/2ML VIAL IV SCH (12:00)
[2022-07-31 12:57] LABS: CALCIUM LEVEL 8.7 MG/DL (8.5-10.1); CREATININE FOR GFR 1.26 MG/DL (0.55-1.30); GLOMERULAR FILTRATION RATE 58.2 (>58); POTASSIUM SERUM 4.4 MMOL/L (3.5-5.1)
[2022-07-31] MEDS ORDERED: PANTOPRAZOLE 40MG VIAL IV SCH (21:00)
[2022-08-01] MEDS ORDERED: PROMETHAZINE 25MG/ML 1ML VIAL IV PRN (09:00)
== END 2022-07-31 12:40 | disposition home or self-care (01) ==
LOC: EDBD 17:50 → M ED 17:50 → INTOOBSV 23:53 → M ED INP 23:53 → M PCU 07-29 01:00 → M MS5PR 07-29 11:09
PROVIDERS: ADMIT Family Medicine; ATTEND General Practice
DX: E10.43 Type 1 diabetes mellitus with diabetic autonomic (poly)neuropathy (principal); E10.10 Type 1 diabetes mellitus with ketoacidosis without coma; N17.9 Acute kidney failure, unspecified; E87.1 Hypo-osmolality and hyponatremia; R11.2 Nausea with vomiting, unspecified; F12.188 Cannabis abuse with other cannabis-induced disorder; D64.9 Anemia, unspecified; E73.9 Lactose intolerance, unspecified; K76.0 Fatty (change of) liver, not elsewhere classified; R00.0 Tachycardia, unspecified; Z79.899 Other long term (current) drug therapy; Z79.4 Long term (current) use of insulin; Z83.3 Family history of diabetes mellitus
CPT/HCPCS: 36415; 74177; 80047; 80048; 80053; 80076; 81001; 82010; 82150; 82803; 83036; 83605; 83690; 83735; 83930; 84145; 85025; 85027; 85652; 86140; 87086; 87631; 93005; 93041; 94760; 96361; 96365; 96372; 96374; 96375; 96376; 99285; C9113; J0131; J0500; J1170; J1630; J1650; J1815; J1885; J2405; J2550; J2765; J3475; Q9967

== ENCOUNTER 2022-09-11 15:25 | Emergency (ER) | payer OTHER ==
[~2022-09-11 15:25] MED LIST changes: +INSU100I38 SC; +POTA-298; +POTA-298 PO; -POTA1TAB14; -POTA1TAB14 PO
[2022-09-11 15:36] VITALS: TEMP 98.2
[2022-09-11] MEDS ORDERED: HALOPERIDOL 5MG/ML 1ML VIAL IV ONE (15:50)
[2022-09-11 16:01] VITALS: BP 141/65
[2022-09-11 16:10] VITALS: O2SAT 99
[2022-09-11] MEDS ORDERED: NS 1,000 ML IV ONE (16:20)
[2022-09-11 16:39] LABS: VENOUS BASE EXCESS -1.7 (-2.0-2.0); VENOUS PARTIAL PRESSURE CO2 34.1 mmHg (38.0-50.0); VENOUS PARTIAL PRESSURE O2 193.7 mmHg (30.0-50.0); VENOUS PH 7.428 UNITS (7.330-7.430); VENOUS STANDARD HCO3 23.1 MMOL/L; VENOUS TOTAL CO2 23.1 MMOL/L (24.0-28.0)
[2022-09-11 17:02] LABS: ACETONE/KETONE 3.1 MMOL/L (0.02-0.27)
[2022-09-11] MEDS ORDERED: KETOROLAC 30 MG/ML 1ML VIAL IV ONE (17:55)
== END 2022-09-11 19:02 | disposition home or self-care (01) ==
LOC: M ED 15:25
DX: K31.84 Gastroparesis (principal); E11.65 Type 2 diabetes mellitus with hyperglycemia; E86.0 Dehydration; R10.84 Generalized abdominal pain; R11.2 Nausea with vomiting, unspecified; Z87.891 Personal history of nicotine dependence; Z79.899 Other long term (current) drug therapy; Z79.4 Long term (current) use of insulin
CPT/HCPCS: 80047; 82010; 82803; 83930; 93005; 93041; 94760; 96374; 96375; 99284; J1630; J1885

== ENCOUNTER 2022-11-01 15:10 | Inpatient (IN) | payer OTHER ==
[~2022-11-01] VITALS: Ht 165.1 cm; Wt 62.8 kg
[~2022-11-01 15:10] MED LIST changes: +DICY-61 PO; -DICY10CA13 PO; +INSU100I24 SQ; -INSU100I9 SQ
[2022-11-01 16:30] LABS: BASO % 0.4 % (0.0-1.0); EOS % 0.2 % (0.0-3.0); HEMATOCRIT 35.2 % (36.0-47.0); HEMOGLOBIN 11.8 g/dl (12.0-15.5); LYMPH # 0.6 10^3/uL (1.5-5.0); MEAN CORPUSCULAR HEMOGLOBIN 29.2 pg (27.0-33.0); MEAN CORPUSCULAR HGB CONC 33.5 g/dl (32.0-36.5); MEAN CORPUSCULAR VOLUME 87.1 fl (80.0-96.0); MONO # 0.5 10^3/uL (0.0-0.8); MONO % 4.5 % (2.0-8.0); NEUTROPHILS # 10.1 10^3/uL (1.5-8.5); NEUTROPHILS % 89.5 % (36.0-66.0); PLATELET COUNT, AUTOMATED 150 10^3/uL (150-450); RED BLOOD COUNT 4.04 10^6/uL (4.00-5.40); WHITE BLOOD COUNT 11.3 10^3/uL (4.0-10.0)
[2022-11-01] MEDS ORDERED: METOCLOPRAMIDE INJ 10MG/2ML VIAL IV ONE (16:30)
[2022-11-01] MEDS ORDERED: NS 1,000 ML IV ONE (16:30)
[2022-11-01] MEDS ORDERED: MORPHINE 4 MG/ML 1ML VIAL IV ONE (16:30)
[2022-11-01 16:42] LABS: RSV AMPLIFICATION NEGATIVE (NEGATIVE)
[2022-11-01 17:39] LABS: VENOUS BASE EXCESS -8.3 (-2.0-2.0); VENOUS HCO3 15.9 MMOL/L (23.0-27.0); VENOUS O2 SATURATION 98.4 % (60.0-80.0); VENOUS PARTIAL PRESSURE CO2 29.1 mmHg (38.0-50.0); VENOUS PARTIAL PRESSURE O2 133.4 mmHg (30.0-50.0); VENOUS PH 7.356 UNITS (7.330-7.430); VENOUS STANDARD HCO3 17.8 MMOL/L; VENOUS TOTAL CO2 16.8 MMOL/L (24.0-28.0)
[2022-11-01 17:47] LABS: LIPASE 27 U/L (12-53)
[2022-11-01 17:53] LABS: ALBUMIN 4.4 G/DL (3.2-5.2); ALKALINE PHOSPHATASE 79 U/L (46-116); ALT/SGPT 19 U/L (7.0-40); AST/SGOT 25 U/L (<34); BILIRUBIN,DIRECT 0.4 MG/DL (<0.4); BLOOD UREA NITROGEN 54 MG/DL (9-23); CALCIUM LEVEL 8.6 MG/DL (8.5-10.1); CARBON DIOXIDE LEVEL 15 MMOL/L (20-31); CHLORIDE LEVEL 87 MMOL/L (98-107); CREATININE FOR GFR 1.76 MG/DL (0.55-1.30); GLOMERULAR FILTRATION RATE 39.4 (>51); GLUCOSE, FASTING 384 MG/DL (60-100); MAGNESIUM LEVEL 1.9 MG/DL (1.8-2.4); POTASSIUM SERUM 3.9 MMOL/L (3.5-5.1); SODIUM LEVEL 129 MMOL/L (136-145)
[2022-11-01 17:57] LABS: ACETONE/KETONE > 4.50 MMOL/L (0.02-0.27)
[2022-11-01] MEDS ORDERED: INSULIN IV RATE CHANGE DOCUMENTATION ML/HR XX SCH ×3 (18:00→20:10)
[2022-11-01] MEDS ORDERED: HumuLIN R (REGULAR) INSULIN (NovoLIN R) **100U/ML** PER UNIT IV ONE (18:00)
[2022-11-01] MEDS ORDERED: INSULIN REGULAR IN 0.9 % NACL 100 UNIT in IV 1 EA IV SCH ×6 (18:00→20:10)
[2022-11-01 18:29] LABS: OSMOLALITY SERUM 303 MOSM/KG (275-295)
[2022-11-01 18:40] LABS: HEMOGLOBIN A1c 8.1 % (4.0-6.0)
[2022-11-01] MEDS ORDERED: ACETAMINOPHEN TAB 650MG DOSE (2X325MG) PO PRN (20:10)
[2022-11-01] MEDS ORDERED: LR 1,000 ML IV SCH (20:10)
[2022-11-01] MEDS ORDERED: HOME MED LIST COMPLETE! XX SCH (20:25)
[2022-11-01] MEDS ORDERED: GLUCOSE 4GM CHEW TABLET PO PRN (20:40)
[2022-11-01] MEDS ORDERED: DEXTROSE 50% 50ML SYRINGE IV PRN (20:40)
[2022-11-01] MEDS ORDERED: GLUCAGON INJ 1MG VIAL SC PRN (20:40)
[2022-11-01] MEDS ORDERED: POTASSIUM CHLORIDE INJ 20 MEQ in LR 1,000 ML IV SCH (21:00)
[2022-11-01 21:16] LABS: CALCIUM LEVEL 7.9 MG/DL (8.5-10.1); CREATININE FOR GFR 1.83 MG/DL (0.55-1.30); GLOMERULAR FILTRATION RATE 37.7 (>51); POTASSIUM SERUM 2.9 MMOL/L (3.5-5.1)
[2022-11-01 21:37] LABS: PHOSPHORUS LEVEL 4.8 MG/DL (2.5-4.9)
[2022-11-01] MEDS ORDERED: POTASSIUM CHLORIDE 10% LIQ 20MEQ/15ML UDC PO ONE (22:00)
[2022-11-01] MEDS: POTASSIUM CHLORIDE INJ 20 MEQ in D5W/LR 1,000 ML IV SCH (22:02)
[2022-11-01] MEDS: KCL 10MEQ/100ML SWI (KRUN) 10 MEQ in IV 1 EA IV SCH ×2 (22:09→23:40)
[2022-11-01 22:48] LABS: CALCIUM LEVEL 7.8 MG/DL (8.5-10.1); CREATININE FOR GFR 1.83 MG/DL (0.55-1.30); GLOMERULAR FILTRATION RATE 37.7 (>51); PHOSPHORUS LEVEL 4.9 MG/DL (2.5-4.9); POTASSIUM SERUM 3.2 MMOL/L (3.5-5.1)
[2022-11-01] MEDS: MORPHINE 2 MG/ML 1ML VIAL IV PRN (23:04)
[2022-11-01 23:57] VITALS: BP 119/72; TEMP 97.7; O2SAT 100
[2022-11-02] MEDS: MORPHINE 2 MG/ML 1ML VIAL IV PRN (00:40)
[2022-11-02] MEDS: KCL 10MEQ/100ML SWI (KRUN) 10 MEQ in IV 1 EA IV SCH ×3 (01:00)
[2022-11-02 01:25] LABS: CALCIUM LEVEL 7.5 MG/DL (8.5-10.1); CREATININE FOR GFR 1.69 MG/DL (0.55-1.30); GLOMERULAR FILTRATION RATE 41.3 (>51); POTASSIUM SERUM 5.8 MMOL/L (3.5-5.1)
[2022-11-02] MEDS ORDERED: LEVEMIR (INSULIN DETEMIR) 1 UNITS/0.01ML SC ONE (03:00)
[2022-11-02] MEDS: POTASSIUM CHLORIDE INJ 20 MEQ in D5W/LR 1,000 ML IV SCH (03:03)
[2022-11-02 04:04] VITALS: BP 137/75; TEMP 98; O2SAT 100
[2022-11-02] MEDS: D5W/0.45% SODIUM CHLORIDE 1,000 ML IV SCH ×2 (04:29→17:36)
[2022-11-02 04:53] LABS: CREATININE FOR GFR 1.67 MG/DL (0.55-1.30); GLOMERULAR FILTRATION RATE 41.9 (>51); PHOSPHORUS LEVEL 3.6 MG/DL (2.5-4.9); POTASSIUM SERUM 4.1 MMOL/L (3.5-5.1)
[2022-11-02] MEDS: HEPARIN SOD (PORCINE) 5000UNITS/ML 1ML VIAL/SYRINGE SC SCH ×3 (06:00→21:10)
[2022-11-02] MEDS: INSULIN LISPRO (NovoLOG) PER UNIT SC SCH ×3 (07:30→17:30)
[2022-11-02 08:00] VITALS: BP 111/68; TEMP 97.3; O2SAT 100
[2022-11-02 08:43] LABS: CALCIUM LEVEL 8.4 MG/DL (8.5-10.1); CREATININE FOR GFR 1.66 MG/DL (0.55-1.30); GLOMERULAR FILTRATION RATE 42.2 (>51); PHOSPHORUS LEVEL 3.3 MG/DL (2.5-4.9); POTASSIUM SERUM 3.8 MMOL/L (3.5-5.1)
[2022-11-02] MEDS: PANTOPRAZOLE 40MG VIAL IV SCH (10:08)
[2022-11-02] MEDS: METOCLOPRAMIDE INJ 10MG/2ML VIAL IV PRN (11:41)
[2022-11-02 12:00] VITALS: BP 116/73; TEMP 97.8; O2SAT 100
[2022-11-02 12:50] LABS: CALCIUM LEVEL 8.5 MG/DL (8.5-10.1); CREATININE FOR GFR 1.58 MG/DL (0.55-1.30); GLOMERULAR FILTRATION RATE 44.7 (>51); PHOSPHORUS LEVEL 2.6 MG/DL (2.5-4.9); POTASSIUM SERUM 3.4 MMOL/L (3.5-5.1)
[2022-11-02 16:00] VITALS: BP 120/64; TEMP 97.4; O2SAT 100
[2022-11-02 16:54] LABS: CALCIUM LEVEL 8.3 MG/DL (8.5-10.1); CREATININE FOR GFR 1.48 MG/DL (0.55-1.30); GLOMERULAR FILTRATION RATE 48.2 (>51); POTASSIUM SERUM 3.7 MMOL/L (3.5-5.1)
[2022-11-02 20:00] VITALS: BP 134/72; TEMP 99.2; O2SAT 97
[2022-11-02] MEDS ORDERED: INSULIN LISPRO (NovoLOG) PER UNIT SC SCH (21:00)
[2022-11-02 21:06] LABS: CALCIUM LEVEL 8.2 MG/DL (8.5-10.1); CREATININE FOR GFR 1.44 MG/DL (0.55-1.30); GLOMERULAR FILTRATION RATE 49.7 (>51); POTASSIUM SERUM 3.4 MMOL/L (3.5-5.1)
[2022-11-02] MEDS: POTASSIUM CHLORIDE 10% LIQ 20MEQ/15ML UDC PO ONE ×2 (21:33→22:18)
[2022-11-03] VITALS: BP 101/55; TEMP 99; O2SAT 98
[2022-11-03 02:52] VITALS: BP 120/74; TEMP 97.9; O2SAT 100
[2022-11-03] MEDS: HEPARIN SOD (PORCINE) 5000UNITS/ML 1ML VIAL/SYRINGE SC SCH ×2 (06:00→14:00)
[2022-11-03] MEDS: INSULIN LISPRO (NovoLOG) PER UNIT SC SCH ×2 (07:30→13:10)
[2022-11-03] MEDS: D5W/0.45% SODIUM CHLORIDE 1,000 ML IV SCH (08:00)
[2022-11-03] MEDS: PANTOPRAZOLE 40MG VIAL IV SCH (08:01)
[2022-11-03 08:04] LABS: BASO % 0.4 % (0.0-1.0); EOS # 0.1 10^3/uL (0.0-0.5); EOS % 1.8 % (0.0-3.0); HEMATOCRIT 29.3 % (36.0-47.0); HEMOGLOBIN 9.9 g/dl (12.0-15.5); LYMPH # 1.5 10^3/uL (1.5-5.0); MEAN CORPUSCULAR HEMOGLOBIN 29.5 pg (27.0-33.0); MEAN CORPUSCULAR HGB CONC 33.8 g/dl (32.0-36.5); MEAN CORPUSCULAR VOLUME 87.2 fl (80.0-96.0); MONO # 0.6 10^3/uL (0.0-0.8); MONO % 9.9 % (2.0-8.0); NEUTROPHILS # 3.5 10^3/uL (1.5-8.5); NEUTROPHILS % 61.7 % (36.0-66.0); PLATELET COUNT, AUTOMATED 177 10^3/uL (150-450); RED BLOOD COUNT 3.36 10^6/uL (4.00-5.40); WHITE BLOOD COUNT 5.6 10^3/uL (4.0-10.0)
[2022-11-03 08:10] VITALS: BP 118/66; TEMP 98.5; O2SAT 100
[2022-11-03 08:31] LABS: CALCIUM LEVEL 8.4 MG/DL (8.5-10.1); CREATININE FOR GFR 1.36 MG/DL (0.55-1.30); GLOMERULAR FILTRATION RATE 53.1 (>51); POTASSIUM SERUM 3.7 MMOL/L (3.5-5.1)
[2022-11-03] MEDS: METOCLOPRAMIDE INJ 10MG/2ML VIAL IV PRN (11:02)
[2022-11-03] MEDS: MORPHINE 2 MG/ML 1ML VIAL IV PRN (11:03)
[2022-11-03 12:00] VITALS: BP 136/91; TEMP 97.6; O2SAT 100
[2022-11-03] MEDS ORDERED: REGL5TAB2 PO (15:45)
[2022-11-03 16:00] VITALS: BP 140/83; TEMP 97.1; O2SAT 100
== END 2022-11-03 17:04 | disposition home or self-care (01) | DRG 420 ==
LOC: EDBD 15:10 → M ED 15:42 → M ED INP 20:09 → ENRESERV 23:14 → M ICU 23:46 → M PCU 11-03 02:49
PROVIDERS: ADMIT Family Medicine; ATTEND Family Medicine
DX: E11.10 Type 2 diabetes mellitus with ketoacidosis without coma (principal); N18.30 Chronic kidney disease, stage 3 unspecified; Z79.4 Long term (current) use of insulin; E11.22 Type 2 diabetes mellitus with diabetic chronic kidney disease

== ENCOUNTER 2022-11-28 16:25 | Inpatient (IN) | payer OTHER ==
[~2022-11-28] VITALS: Ht 170.2 cm; Wt 63.8 kg
[2022-11-28 16:55] LABS: VENOUS BASE EXCESS -3.1 (-2.0-2.0); VENOUS HCO3 20.6 MMOL/L (23.0-27.0); VENOUS O2 SATURATION 45.5 % (60.0-80.0); VENOUS PARTIAL PRESSURE CO2 32.8 mmHg (38.0-50.0); VENOUS PARTIAL PRESSURE O2 26.1 mmHg (30.0-50.0); VENOUS PH 7.415 UNITS (7.330-7.430); VENOUS STANDARD HCO3 20.8 MMOL/L; VENOUS TOTAL CO2 21.6 MMOL/L (24.0-28.0)
[2022-11-28 17:13] LABS: BASO % 0.3 % (0.0-1.0); HEMATOCRIT 36.3 % (36.0-47.0); HEMOGLOBIN 12.5 g/dl (12.0-15.5); LYMPH # 1.1 10^3/uL (1.5-5.0); LYMPH % 10.8 % (24.0-44.0); MEAN CORPUSCULAR HEMOGLOBIN 28.7 pg (27.0-33.0); MEAN CORPUSCULAR HGB CONC 34.4 g/dl (32.0-36.5); MEAN CORPUSCULAR VOLUME 83.4 fl (80.0-96.0); MONO # 0.5 10^3/uL (0.0-0.8); MONO % 4.9 % (2.0-8.0); NEUTROPHILS # 8.7 10^3/uL (1.5-8.5); NEUTROPHILS % 83.7 % (36.0-66.0); PLATELET COUNT, AUTOMATED 268 10^3/uL (150-450); RED BLOOD COUNT 4.35 10^6/uL (4.00-5.40); WHITE BLOOD COUNT 10.4 10^3/uL (4.0-10.0)
[2022-11-28] MEDS ORDERED: MORPHINE 4 MG/ML 1ML VIAL IV ONE (17:15)
[2022-11-28] MEDS ORDERED: HumuLIN R (REGULAR) INSULIN (NovoLIN R) **100U/ML** PER UNIT IV ONE (17:15)
[2022-11-28] MEDS ORDERED: ONDANSETRON 4MG 2ML VIAL IV ONE (17:15)
[2022-11-28] MEDS ORDERED: NS 1,000 ML IV ONE ×2 (17:15→20:10)
[2022-11-28 17:24] LABS: LIPASE 33 U/L (12-53)
[2022-11-28 17:26] LABS: ALBUMIN 4.9 G/DL (3.2-5.2); ALKALINE PHOSPHATASE 90 U/L (46-116); ALT/SGPT 24 U/L (7.0-40); AST/SGOT 31 U/L (<34); BILIRUBIN,DIRECT 0.3 MG/DL (<0.4); BILIRUBIN,TOTAL 0.9 MG/DL (0.3-1.2); BLOOD UREA NITROGEN 65 MG/DL (9-23); CALCIUM LEVEL 9.7 MG/DL (8.5-10.1); CARBON DIOXIDE LEVEL 18 MMOL/L (20-31); CHLORIDE LEVEL 90 MMOL/L (98-107); CREATININE FOR GFR 1.93 MG/DL (0.55-1.30); GLOMERULAR FILTRATION RATE 35.4 (>51); GLUCOSE, FASTING 399 MG/DL (60-100); POTASSIUM SERUM 3.9 MMOL/L (3.5-5.1); SODIUM LEVEL 135 MMOL/L (136-145); TOTAL PROTEIN 8.4 G/DL (5.7-8.2)
[2022-11-28] MEDS ORDERED: MED REC IN PROGRESS XX SCH (19:20)
[2022-11-28] MEDS ORDERED: MULT-90 PO (19:21)
[2022-11-28 19:22] LABS: ACETONE/KETONE > 4.50 MMOL/L (0.02-0.27)
[2022-11-28] MEDS ORDERED: HOME MED LIST COMPLETE! XX SCH (19:25)
[2022-11-28 20:00] LABS: RSV AMPLIFICATION NEGATIVE (NEGATIVE)
[2022-11-28] MEDS: NS 1,000 ML IV SCH (20:10)
[2022-11-28] MEDS ORDERED: GLUCAGON INJ 1MG VIAL SC PRN (20:20)
[2022-11-28] MEDS ORDERED: GLUCOSE 4GM CHEW TABLET PO PRN (20:20)
[2022-11-28] MEDS ORDERED: LEVEMIR (INSULIN DETEMIR) 1 UNITS/0.01ML SC SCH (21:00)
[2022-11-28] MEDS: INSULIN LISPRO (NovoLOG) PER UNIT SC SCH (21:00)
[2022-11-28 21:04] LABS: CALCIUM LEVEL 8.1 MG/DL (8.5-10.1); CREATININE FOR GFR 1.85 MG/DL (0.55-1.30); GLOMERULAR FILTRATION RATE 37.2 (>51); POTASSIUM SERUM 3.5 MMOL/L (3.5-5.1)
[2022-11-28 21:08] LABS: VENOUS HCO3 19.1 MMOL/L (23.0-27.0); VENOUS O2 SATURATION 85.7 % (60.0-80.0); VENOUS PARTIAL PRESSURE CO2 36.2 mmHg (38.0-50.0); VENOUS PARTIAL PRESSURE O2 59.1 mmHg (30.0-50.0); VENOUS STANDARD HCO3 19.3 MMOL/L; VENOUS TOTAL CO2 20.2 MMOL/L (24.0-28.0)
[2022-11-28] MEDS: METOCLOPRAMIDE INJ 10MG/2ML VIAL IV SCH (21:31)
[2022-11-28] MEDS: HEPARIN SOD (PORCINE) 5000UNITS/ML 1ML VIAL/SYRINGE SC SCH ×2 (21:33→21:41)
[2022-11-28 22:30] VITALS: BP 144/81; TEMP 98.2; O2SAT 97
[2022-11-29] MEDS: INSULIN LISPRO (NovoLOG) PER UNIT SC SCH ×7 (01:00→21:00)
[2022-11-29 01:07] LABS: VENOUS BASE EXCESS -4.3 (-2.0-2.0); VENOUS HCO3 20.4 MMOL/L (23.0-27.0); VENOUS O2 SATURATION 86.5 % (60.0-80.0); VENOUS PARTIAL PRESSURE CO2 36.2 mmHg (38.0-50.0); VENOUS PARTIAL PRESSURE O2 58.4 mmHg (30.0-50.0); VENOUS PH 7.369 UNITS (7.330-7.430); VENOUS STANDARD HCO3 20.7 MMOL/L; VENOUS TOTAL CO2 21.5 MMOL/L (24.0-28.0)
[2022-11-29 01:47] LABS: CALCIUM LEVEL 7.6 MG/DL (8.5-10.1); CREATININE FOR GFR 1.55 MG/DL (0.55-1.30); GLOMERULAR FILTRATION RATE 45.7 (>51); POTASSIUM SERUM 4.1 MMOL/L (3.5-5.1)
[2022-11-29] MEDS: ONDANSETRON 4MG 2ML VIAL IV PRN ×2 (03:07→18:27)
[2022-11-29] MEDS: NS 1,000 ML IV SCH (03:07)
[2022-11-29] MEDS: METOCLOPRAMIDE INJ 10MG/2ML VIAL IV SCH ×3 (05:10→21:46)
[2022-11-29] MEDS: DEXTROSE 50% 50ML SYRINGE IV PRN ×3 (05:20→10:14)
[2022-11-29 05:46] LABS: VENOUS BASE EXCESS -2.8 (-2.0-2.0); VENOUS O2 SATURATION 95.4 % (60.0-80.0); VENOUS PARTIAL PRESSURE CO2 38.5 mmHg (38.0-50.0); VENOUS PARTIAL PRESSURE O2 85.5 mmHg (30.0-50.0); VENOUS PH 7.375 UNITS (7.330-7.430); VENOUS STANDARD HCO3 22.1 MMOL/L; VENOUS TOTAL CO2 23.2 MMOL/L (24.0-28.0)
[2022-11-29 06:00] VITALS: BP 139/83; TEMP 98.6; O2SAT 99
[2022-11-29] MEDS ORDERED: MORPHINE 4 MG/ML 1ML VIAL IV ONE (06:00)
[2022-11-29 06:14] LABS: BASO # 0.1 10^3/uL (0.0-0.2); BASO % 0.5 % (0.0-1.0); EOS % 0.1 % (0.0-3.0); LYMPH # 1.9 10^3/uL (1.5-5.0); LYMPH % 17.5 % (24.0-44.0); MEAN CORPUSCULAR HEMOGLOBIN 29.1 pg (27.0-33.0); MEAN CORPUSCULAR HGB CONC 33.5 g/dl (32.0-36.5); MEAN CORPUSCULAR VOLUME 86.6 fl (80.0-96.0); MONO # 0.8 10^3/uL (0.0-0.8); MONO % 7.2 % (2.0-8.0); NEUTROPHILS # 8.2 10^3/uL (1.5-8.5); NEUTROPHILS % 74.3 % (36.0-66.0); PLATELET COUNT, AUTOMATED 211 10^3/uL (150-450); RED BLOOD COUNT 3.58 10^6/uL (4.00-5.40); WHITE BLOOD COUNT 11.1 10^3/uL (4.0-10.0)
[2022-11-29 06:15] LABS: HEMOGLOBIN 10.4 g/dl (12.0-15.5)
[2022-11-29 06:20] LABS: CALCIUM LEVEL 7.8 MG/DL (8.5-10.1); CREATININE FOR GFR 1.42 MG/DL (0.55-1.30); GLOMERULAR FILTRATION RATE 50.5 (>51)
[2022-11-29] MEDS ORDERED: LR 1,000 ML IV SCH (07:20)
[2022-11-29] MEDS: HEPARIN SOD (PORCINE) 5000UNITS/ML 1ML VIAL/SYRINGE SC SCH ×2 (08:20→21:00)
[2022-11-29] MEDS ORDERED: D5W/LR 1,000 ML IV SCH (10:10)
[2022-11-29 10:25] LABS: CALCIUM LEVEL 7.9 MG/DL (8.5-10.1); CREATININE FOR GFR 1.3 MG/DL (0.55-1.30); GLOMERULAR FILTRATION RATE 55.9 (>51); POTASSIUM SERUM 3.7 MMOL/L (3.5-5.1)
[2022-11-29 14:00] VITALS: BP 138/73; TEMP 98.2; O2SAT 100
[2022-11-29] MEDS: LR 1,000 ML IV SCH (18:18)
[2022-11-29] MEDS ORDERED: ACETAMINOPHEN 500 MG TAB PO PRN (18:40)
[2022-11-29] MEDS: MORPHINE 2 MG/ML 1ML VIAL IV PRN ×2 (18:50→23:03)
[2022-11-29 19:49] VITALS: BP 133/75; TEMP 98.6; O2SAT 98
[2022-11-29 20:15] LABS: BLOOD UREA NITROGEN 29 MG/DL (9-23); CALCIUM LEVEL 8.2 MG/DL (8.5-10.1); CARBON DIOXIDE LEVEL 22 MMOL/L (20-31); CHLORIDE LEVEL 104 MMOL/L (98-107); CREATININE FOR GFR 1.15 MG/DL (0.55-1.30); GLOMERULAR FILTRATION RATE > 60.0 (>51); GLUCOSE, FASTING 248 MG/DL (60-100); POTASSIUM SERUM 3.9 MMOL/L (3.5-5.1); SODIUM LEVEL 138 MMOL/L (136-145)
[2022-11-29] MEDS ORDERED: LEVEMIR (INSULIN DETEMIR) 1 UNITS/0.01ML SC SCH (21:00)
[2022-11-30] MEDS: INSULIN LISPRO (NovoLOG) PER UNIT SC SCH ×4 (01:00→13:00)
[2022-11-30] MEDS: LR 1,000 ML IV SCH (03:08)
[2022-11-30] MEDS: METOCLOPRAMIDE INJ 10MG/2ML VIAL IV SCH ×2 (05:36→12:15)
[2022-11-30 05:56] VITALS: BP 138/93; TEMP 97.9; O2SAT 99
[2022-11-30 07:14] LABS: BASO % 0.6 % (0.0-1.0); EOS # 0.1 10^3/uL (0.0-0.5); EOS % 0.8 % (0.0-3.0); HEMATOCRIT 29.6 % (36.0-47.0); HEMOGLOBIN 9.9 g/dl (12.0-15.5); LYMPH # 1.8 10^3/uL (1.5-5.0); LYMPH % 27.7 % (24.0-44.0); MEAN CORPUSCULAR HEMOGLOBIN 28.7 pg (27.0-33.0); MEAN CORPUSCULAR HGB CONC 33.4 g/dl (32.0-36.5); MEAN CORPUSCULAR VOLUME 85.8 fl (80.0-96.0); MONO # 0.5 10^3/uL (0.0-0.8); NEUTROPHILS % 62.6 % (36.0-66.0); PLATELET COUNT, AUTOMATED 172 10^3/uL (150-450); RED BLOOD COUNT 3.45 10^6/uL (4.00-5.40); WHITE BLOOD COUNT 6.5 10^3/uL (4.0-10.0)
[2022-11-30 07:43] LABS: BLOOD UREA NITROGEN 18 MG/DL (9-23); CALCIUM LEVEL 8.6 MG/DL (8.5-10.1); CARBON DIOXIDE LEVEL 26 MMOL/L (20-31); CHLORIDE LEVEL 103 MMOL/L (98-107); CREATININE FOR GFR 1.05 MG/DL (0.55-1.30); GLOMERULAR FILTRATION RATE > 60.0 (>51); GLUCOSE, FASTING 82 MG/DL (60-100); POTASSIUM SERUM 3.8 MMOL/L (3.5-5.1); SODIUM LEVEL 137 MMOL/L (136-145)
[2022-11-30] MEDS ORDERED: ERYTHROMYCIN 250MG TABLET PO SCH (09:00)
[2022-11-30] MEDS: HEPARIN SOD (PORCINE) 5000UNITS/ML 1ML VIAL/SYRINGE SC SCH (09:00)
[2022-11-30 14:00] VITALS: BP 128/70; TEMP 98; O2SAT 100
[2022-11-30] MEDS ORDERED: REGL5TAB2 PO (15:03)
[2022-11-30] MEDS ORDERED: [UNRECOGNIZED DRUG - CODE] PO (15:03)
[2022-11-30] MEDS ORDERED: ONDA4TAB6 PO (15:03)
[2022-11-30] MEDS ORDERED: INSU100I38 SC (15:03)
[2022-11-30] MEDS ORDERED: DEXT4TAB83 PO (15:08)
== END 2022-11-30 15:55 | disposition home or self-care (01) | DRG 48 ==
LOC: EDBD 16:25 → M ED 16:25 → M ED INP 20:10 → ENRESERV 21:41 → M MS4PR 22:25
PROVIDERS: ADMIT Internal Medicine Nephrology; ATTEND Student in an Organized Health Care Education/Training Program
DX: E10.43 Type 1 diabetes mellitus with diabetic autonomic (poly)neuropathy (principal); E10.22 Type 1 diabetes mellitus with diabetic chronic kidney disease; E10.649 Type 1 diabetes mellitus with hypoglycemia without coma; N17.9 Acute kidney failure, unspecified; N18.30 Chronic kidney disease, stage 3 unspecified; K76.0 Fatty (change of) liver, not elsewhere classified; K31.84 Gastroparesis; E73.9 Lactose intolerance, unspecified; E86.0 Dehydration; T38.3X6A Underdosing of insulin and oral hypoglycemic [antidiabetic] drugs, initial encounter; D64.9 Anemia, unspecified; E10.10 Type 1 diabetes mellitus with ketoacidosis without coma; Z79.4 Long term (current) use of insulin

== ENCOUNTER 2022-12-05 21:25 | Observation (INO) | payer OTHER, MEDICAID ==
[~2022-12-05] VITALS: Ht 170.2 cm; Wt 62.1 kg
[~2022-12-05 21:25] MED LIST changes: +DEXT4TAB83 PO; +MULT-90 PO; +[UNRECOGNIZED DRUG - CODE] PO
[2022-12-05 22:52] LABS: BASO # 0.1 10^3/uL (0.0-0.2); BASO % 0.8 % (0.0-1.0); EOS % 0.5 % (0.0-3.0); HEMATOCRIT 34.5 % (36.0-47.0); HEMOGLOBIN 11.8 g/dl (12.0-15.5); LYMPH # 1.9 10^3/uL (1.5-5.0); LYMPH % 24.2 % (24.0-44.0); MEAN CORPUSCULAR HEMOGLOBIN 29.1 pg (27.0-33.0); MEAN CORPUSCULAR HGB CONC 34.2 g/dl (32.0-36.5); MONO # 0.5 10^3/uL (0.0-0.8); MONO % 6.7 % (2.0-8.0); NEUTROPHILS # 5.2 10^3/uL (1.5-8.5); NEUTROPHILS % 67.4 % (36.0-66.0); RED BLOOD COUNT 4.06 10^6/uL (4.00-5.40); WHITE BLOOD COUNT 7.7 10^3/uL (4.0-10.0)
[2022-12-05 23:12] LABS: ALBUMIN 4.3 G/DL (3.2-5.2); BILIRUBIN,TOTAL 0.6 MG/DL (0.3-1.2); CALCIUM LEVEL 9.5 MG/DL (8.5-10.1); CREATININE FOR GFR 1.3 MG/DL (0.55-1.30); GLOMERULAR FILTRATION RATE 55.9 (>51); POTASSIUM SERUM 4.1 MMOL/L (3.5-5.1); TOTAL PROTEIN 7.5 G/DL (5.7-8.2)
[2022-12-05 23:13] LABS: PLATELET COUNT, AUTOMATED 230 10^3/uL (150-450)
[2022-12-06] MEDS ORDERED: KETOROLAC 30 MG/ML 1ML VIAL IV ONE (04:50)
[2022-12-06] MEDS ORDERED: METOCLOPRAMIDE INJ 10MG/2ML VIAL IV ONE (04:50)
[2022-12-06] MEDS ORDERED: NS 1,000 ML IV ONE ×2 (04:50→07:05)
[2022-12-06 06:13] LABS: CK-MB VALUE MASS < 1.0 NG/ML (<3.6)
[2022-12-06 06:15] LABS: CPK CREATINE PHOSPHOKINASE 31 U/L (34-145); MB/CK RELATIVE INDEX 3.22 (< OR =4)
[2022-12-06] MEDS ORDERED: ISOVUE-370 76% 100ML VIAL As Ordered ONE (07:02)
[2022-12-06] MEDS ORDERED: LIDOCAINE 2% 5ML JELLY UROJET TOP ONE (07:05)
[2022-12-06 07:11] LABS: VENOUS BASE EXCESS -9.2 (-2.0-2.0); VENOUS O2 SATURATION 96.2 % (60.0-80.0); VENOUS PARTIAL PRESSURE CO2 32.6 mmHg (38.0-50.0); VENOUS PARTIAL PRESSURE O2 93.2 mmHg (30.0-50.0); VENOUS PH 7.309 UNITS (7.330-7.430)
[2022-12-06 07:29] LABS: APPEARANCE, URINE HAZY (CLEAR); BACTERIA, URINE AUTO NEGATIVE (NEGATIVE); BILIRUBIN, URINE AUTO NEGATIVE (NEGATIVE); BLOOD, URINE BLOOD NEGATIVE (NEGATIVE); COLOR, URINE YELLOW (YELLOW); GLUCOSE, URINE (UA) AUTO 3+ mg/dL (NEGATIVE); KETONE, URINE AUTO 2+ mg/dL (NEGATIVE); LEUKOCYTE ESTERASE, URINE AUTO TRACE (NEGATIVE); NITRITE, URINE AUTO NEGATIVE (NEGATIVE); PROTEIN, URINE AUTO 2+ mg/dL (NEGATIVE); RBC, URINE AUTO 1 /HPF (0-3); SPECIFIC GRAVITY URINE AUTO 1.024 (1.002-1.035); SQUAMOUS EPITHELIAL CELL UR AU 2 /HPF (0-6); WBC, URINE AUTO 4 /HPF (0-3)
[2022-12-06] MEDS ORDERED: MED REC IN PROGRESS XX SCH (08:40)
[2022-12-06] MEDS ORDERED: MED REC CURRENTLY UNOBTAINABLE XX SCH (08:50)
[2022-12-06 09:12] LABS: RSV AMPLIFICATION NEGATIVE (NEGATIVE)
[2022-12-06] MEDS ORDERED: ACETAMINOPHEN TAB 650MG DOSE (2X325MG) PO PRN (10:05)
[2022-12-06] MEDS ORDERED: METO5TAB2 PO (10:07)
[2022-12-06] MEDS ORDERED: INSU100I38 SC (10:07)
[2022-12-06] MEDS ORDERED: GLUCAGON INJ 1MG VIAL SC PRN (10:10)
[2022-12-06] MEDS ORDERED: HOME MED LIST COMPLETE! XX SCH (10:10)
[2022-12-06] MEDS ORDERED: DEXTROSE 50% 50ML SYRINGE IV PRN (10:10)
[2022-12-06] MEDS ORDERED: GLUCOSE 4GM CHEW TABLET PO PRN (10:10)
[2022-12-06] MEDS: LR 1,000 ML IV SCH ×2 (10:40→17:40)
[2022-12-06 11:08] VITALS: BP 130/83; TEMP 97.5; O2SAT 100
[2022-12-06] MEDS ORDERED: PANTOPRAZOLE 40MG VIAL IV SCH (12:00)
[2022-12-06] MEDS: ENOXAPARIN 40MG/0.4ML SYRINGE (J1650 PER 10MG) SC SCH (12:06)
[2022-12-06] MEDS: INSULIN LISPRO (NovoLOG) PER UNIT SC SCH ×2 (12:07→17:39)
[2022-12-06 12:45] LABS: MAGNESIUM LEVEL 1.6 MG/DL (1.8-2.4)
[2022-12-06 14:00] VITALS: BP 127/86; TEMP 98.2; O2SAT 100
[2022-12-06] MEDS: METOCLOPRAMIDE INJ 10MG/2ML VIAL IV SCH ×2 (14:58→21:49)
[2022-12-06] MEDS: MAG SULF 1GM/100ML (MAG RUN) 1 GM in IV 1 EA IV SCH ×3 (17:39→20:00)
[2022-12-06 20:00] VITALS: BP 104/67; TEMP 98.1; O2SAT 100
[2022-12-06] MEDS ORDERED: LEVEMIR (INSULIN DETEMIR) 1 UNITS/0.01ML SC SCH (21:00)
[2022-12-06] MEDS ORDERED: INSULIN LISPRO (NovoLOG) PER UNIT SC SCH (21:00)
[2022-12-07] MEDS: LR 1,000 ML IV SCH (04:36)
[2022-12-07 05:23] VITALS: BP 149/86; TEMP 97.7; O2SAT 100
[2022-12-07] MEDS: METOCLOPRAMIDE INJ 10MG/2ML VIAL IV SCH (05:46)
[2022-12-07 06:25] LABS: BASO % 0.4 % (0.0-1.0); EOS # 0.2 10^3/uL (0.0-0.5); EOS % 3.1 % (0.0-3.0); LYMPH # 1.7 10^3/uL (1.5-5.0); LYMPH % 34.9 % (24.0-44.0); MEAN CORPUSCULAR HGB CONC 33.3 g/dl (32.0-36.5); MEAN CORPUSCULAR VOLUME 87.1 fl (80.0-96.0); MONO # 0.5 10^3/uL (0.0-0.8); MONO % 9.8 % (2.0-8.0); NEUTROPHILS # 2.5 10^3/uL (1.5-8.5); NEUTROPHILS % 51.4 % (36.0-66.0); PLATELET COUNT, AUTOMATED 239 10^3/uL (150-450); WHITE BLOOD COUNT 4.8 10^3/uL (4.0-10.0)
[2022-12-07 06:46] LABS: BLOOD UREA NITROGEN 16 MG/DL (9-23); CALCIUM LEVEL 8.4 MG/DL (8.5-10.1); CARBON DIOXIDE LEVEL 22 MMOL/L (20-31); CHLORIDE LEVEL 104 MMOL/L (98-107); GLOMERULAR FILTRATION RATE > 60.0 (>51); GLUCOSE, FASTING 95 MG/DL (60-100); MAGNESIUM LEVEL 1.9 MG/DL (1.8-2.4); POTASSIUM SERUM 3.9 MMOL/L (3.5-5.1); SODIUM LEVEL 135 MMOL/L (136-145)
[2022-12-07] MEDS: INSULIN LISPRO (NovoLOG) PER UNIT SC SCH (07:30)
[2022-12-07] MEDS: ENOXAPARIN 40MG/0.4ML SYRINGE (J1650 PER 10MG) SC SCH (08:10)
[2022-12-07] MEDS ORDERED: OMEP-173 PO (09:20)
[2022-12-07] MEDS ORDERED: METO10TA2 PO (09:20)
== END 2022-12-07 11:35 | disposition home or self-care (01) ==
LOC: M ED 21:25 → M ED INP 12-06 09:25 → ENRESERV 12-06 10:21 → M MS5PR 12-06 11:00
PROVIDERS: ADMIT Internal Medicine; ATTEND Internal Medicine
DX: R11.2 Nausea with vomiting, unspecified (principal); F12.188 Cannabis abuse with other cannabis-induced disorder; E10.43 Type 1 diabetes mellitus with diabetic autonomic (poly)neuropathy; E10.10 Type 1 diabetes mellitus with ketoacidosis without coma; E10.22 Type 1 diabetes mellitus with diabetic chronic kidney disease; E86.0 Dehydration; K44.9 Diaphragmatic hernia without obstruction or gangrene; K76.0 Fatty (change of) liver, not elsewhere classified; N18.31 Chronic kidney disease, stage 3a; F19.10 Other psychoactive substance abuse, uncomplicated; R10.9 Unspecified abdominal pain; G89.29 Other chronic pain; Z79.899 Other long term (current) drug therapy; Z79.4 Long term (current) use of insulin; Z83.3 Family history of diabetes mellitus; Z82.49 Family history of ischemic heart disease and other diseases of the circulatory system
CPT/HCPCS: 36415; 71045; 74177; 80048; 80053; 81001; 82010; 82550; 82553; 82803; 83735; 85025; 87631; 93005; 96361; 96372; 96374; 96375; 96376; 99285; C9113; J1610; J1650; J1815; J1885; J2765; J3475; Q9967

== ENCOUNTER 2023-01-17 16:07 | Inpatient (IN) | payer MEDICAID, OTHER ==
[~2023-01-17] VITALS: Ht 170.2 cm; Wt 60.2 kg
[~2023-01-17 16:07] MED LIST changes: +PEN-308 SC; -PEN1MIS21 SC
[2023-01-17 17:11] LABS: VENOUS HCO3 16.2 MMOL/L (23.0-27.0); VENOUS O2 SATURATION 83.6 % (60.0-80.0); VENOUS PARTIAL PRESSURE CO2 29.9 mmHg (38.0-50.0); VENOUS PH 7.353 UNITS (7.330-7.430); VENOUS STANDARD HCO3 17.8 MMOL/L; VENOUS TOTAL CO2 17.2 MMOL/L (24.0-28.0)
[2023-01-17 17:17] LABS: BASO % 0.2 % (0.0-1.0); HEMATOCRIT 30.2 % (36.0-47.0); HEMOGLOBIN 10.4 g/dl (12.0-15.5); LYMPH # 0.4 10^3/uL (1.5-5.0); LYMPH % 3.4 % (24.0-44.0); MEAN CORPUSCULAR HEMOGLOBIN 29.1 pg (27.0-33.0); MEAN CORPUSCULAR HGB CONC 34.4 g/dl (32.0-36.5); MEAN CORPUSCULAR VOLUME 84.6 fl (80.0-96.0); MONO # 0.4 10^3/uL (0.0-0.8); MONO % 3.1 % (2.0-8.0); NEUTROPHILS # 12.1 10^3/uL (1.5-8.5); PLATELET COUNT, AUTOMATED 270 10^3/uL (150-450); RED BLOOD COUNT 3.57 10^6/uL (4.00-5.40); WHITE BLOOD COUNT 13.1 10^3/uL (4.0-10.0)
[2023-01-17] MEDS ORDERED: HALOPERIDOL 5MG/ML 1ML VIAL IV ONE (17:20)
[2023-01-17 17:52] LABS: ACETONE/KETONE > 4.50 MMOL/L (0.02-0.27); ALBUMIN 4.8 G/DL (3.2-5.2); ALKALINE PHOSPHATASE 70 U/L (46-116); ALT/SGPT 25 U/L (7.0-40); AST/SGOT 46 U/L (<34); BILIRUBIN,DIRECT 0.3 MG/DL (<0.4); BILIRUBIN,TOTAL 1.2 MG/DL (0.3-1.2); BLOOD UREA NITROGEN 39 MG/DL (9-23); CALCIUM LEVEL 9.7 MG/DL (8.5-10.1); CARBON DIOXIDE LEVEL 18 MMOL/L (20-31); CHLORIDE LEVEL 90 MMOL/L (98-107); CREATININE FOR GFR 1.42 MG/DL (0.55-1.30); GLOMERULAR FILTRATION RATE 50.5 (>51); GLUCOSE, FASTING 447 MG/DL (60-100); LIPASE 31 U/L (12-53); POTASSIUM SERUM 5.9 MMOL/L (3.5-5.1); SODIUM LEVEL 131 MMOL/L (136-145); TOTAL PROTEIN 8.1 G/DL (5.7-8.2)
[2023-01-17] MEDS ORDERED: NS 1,000 ML IV ONE ×2 (18:10→19:00)
[2023-01-17] MEDS ORDERED: LEVEMIR (INSULIN DETEMIR) 1 UNITS/0.01ML SC ONE (18:10)
[2023-01-17] MEDS ORDERED: INSULIN IV RATE CHANGE DOCUMENTATION ML/HR XX SCH ×2 (18:10→18:45)
[2023-01-17] MEDS ORDERED: INSULIN REGULAR IN 0.9 % NACL 100 UNIT in IV 1 EA IV SCH ×4 (18:10→19:00)
[2023-01-17] MEDS ORDERED: ONDANSETRON 4MG 2ML VIAL IV PRN (18:45)
[2023-01-17] MEDS ORDERED: ALBUTEROL SULFATE 2.5MG/0.5ML INH NEB SOLN NEB PRN (18:45)
[2023-01-17] MEDS ORDERED: METOCLOPRAMIDE INJ 10MG/2ML VIAL IV PRN (18:45)
[2023-01-17] MEDS ORDERED: INSU100I48 SQ (18:58)
[2023-01-17] MEDS ORDERED: HOME MED LIST COMPLETE! XX SCH (19:00)
[2023-01-17 19:53] LABS: VENOUS BASE EXCESS -6.6 (-2.0-2.0); VENOUS HCO3 17.1 MMOL/L (23.0-27.0); VENOUS O2 SATURATION 99.4 % (60.0-80.0); VENOUS PARTIAL PRESSURE CO2 28.5 mmHg (38.0-50.0); VENOUS PARTIAL PRESSURE O2 270.2 mmHg (30.0-50.0); VENOUS PH 7.395 UNITS (7.330-7.430); VENOUS STANDARD HCO3 19.1 MMOL/L; VENOUS TOTAL CO2 17.9 MMOL/L (24.0-28.0)
[2023-01-17] MEDS ORDERED: NS 1,000 ML IV SCH (20:00)
[2023-01-17 20:29] LABS: CALCIUM LEVEL 8.6 MG/DL (8.5-10.1); CREATININE FOR GFR 1.5 MG/DL (0.55-1.30); GLOMERULAR FILTRATION RATE 47.4 (>51); POTASSIUM SERUM 3.3 MMOL/L (3.5-5.1)
[2023-01-17 20:50] VITALS: BP 107/62; TEMP 98.3; O2SAT 100
[2023-01-17] MEDS ORDERED: INSULIN LISPRO (NovoLOG) PER UNIT SC SCH (21:00)
[2023-01-17] MEDS ORDERED: GLUCAGON INJ 1MG VIAL SC PRN (21:30)
[2023-01-17] MEDS ORDERED: GLUCOSE 4GM CHEW TABLET PO PRN (21:30)
[2023-01-17] MEDS ORDERED: DEXTROSE 50% 50ML SYRINGE IV PRN (21:30)
[2023-01-17] MEDS: HEPARIN SOD (PORCINE) 5000UNITS/ML 1ML VIAL/SYRINGE SC SCH (22:00)
[2023-01-17 22:05] VITALS: BP 111/70; O2SAT 98
[2023-01-17 23:57] LABS: CALCIUM LEVEL 8.3 MG/DL (8.5-10.1); CREATININE FOR GFR 1.53 MG/DL (0.55-1.30); GLOMERULAR FILTRATION RATE 46.3 (>51)
[2023-01-18] VITALS (10 sets, daily range): BP systolic 107–176; BP diastolic 67–93; TEMP 98.1–98.8; O2SAT 96–100
[2023-01-18] MEDS: HEPARIN SOD (PORCINE) 5000UNITS/ML 1ML VIAL/SYRINGE SC SCH (05:04)
[2023-01-18 06:39] LABS: CALCIUM LEVEL 8.4 MG/DL (8.5-10.1); CREATININE FOR GFR 1.49 MG/DL (0.55-1.30); GLOMERULAR FILTRATION RATE 47.8 (>51); PHOSPHORUS LEVEL 5.3 MG/DL (2.5-4.9)
[2023-01-18] MEDS ORDERED: INSULIN LISPRO (NovoLOG) PER UNIT SC SCH ×2 (07:30→12:00)
[2023-01-18] MEDS ORDERED: PANTOPRAZOLE 40MG VIAL IV SCH (09:00)
[2023-01-18] MEDS ORDERED: DEXTROSE 50% 50ML SYRINGE IV PRN (09:15)
[2023-01-18] MEDS ORDERED: GLUCOSE 4GM CHEW TABLET PO PRN (09:15)
[2023-01-18] MEDS ORDERED: GLUCAGON INJ 1MG VIAL SC PRN (09:15)
[2023-01-18] MEDS ORDERED: NS 1,000 ML IV ONE (10:35)
[2023-01-18] MEDS ORDERED: PANT20TA6 PO (10:49)
[2023-01-18 11:03] LABS: AMPHETAMINES LEVEL URINE NEGATIVE (NEGATIVE); BARBITURATES URINE NEGATIVE (NEGATIVE); BENZODIAZEPINES URINE NEGATIVE (NEGATIVE); COCAINE METABOLITE URINE NEGATIVE (NEGATIVE); METHADONE URINE NEGATIVE (NEGATIVE); OPIATES URINE NEGATIVE (NEGATIVE); PHENCYCLIDINE URINE NEGATIVE (NEGATIVE)
[2023-01-18 11:05] LABS: CANNABINOIDS URINE POSITIVE (NEGATIVE)
[2023-01-18] MEDS ORDERED: PANT40TA29 PO (11:52)
[2023-01-18] MEDS ORDERED: LEVEMIR (INSULIN DETEMIR) 1 UNITS/0.01ML SC SCH (21:00)
== END 2023-01-18 12:30 | disposition home or self-care (01) | DRG 420 ==
LOC: EDBD 16:07 → M ED 16:07 → M ED INP 18:43 → M ICU 20:48
PROVIDERS: ADMIT Internal Medicine Critical Care Medicine; ATTEND Internal Medicine Nephrology
DX: E10.10 Type 1 diabetes mellitus with ketoacidosis without coma (principal); N17.9 Acute kidney failure, unspecified; E10.22 Type 1 diabetes mellitus with diabetic chronic kidney disease; N18.30 Chronic kidney disease, stage 3 unspecified; K76.0 Fatty (change of) liver, not elsewhere classified; E83.39 Other disorders of phosphorus metabolism; F12.188 Cannabis abuse with other cannabis-induced disorder; Z79.4 Long term (current) use of insulin; E73.9 Lactose intolerance, unspecified

== ENCOUNTER 2023-02-10 20:00 | Inpatient (IN) | payer MEDICAID, OTHER ==
[~2023-02-10] VITALS: Ht 170.2 cm; Wt 60.2 kg
[~2023-02-10 20:00] MED LIST changes: +INSU100I48 SC; +PANT20TA6 PO
[2023-02-10] MEDS ORDERED: NS 1,000 ML IV ONE (20:30)
[2023-02-10] MEDS ORDERED: MORPHINE 4 MG/ML 1ML VIAL IV PRN (21:00)
[2023-02-10] MEDS ORDERED: PROMETHAZINE 25MG/ML 1ML VIAL IV ONE (21:00)
[2023-02-10 21:14] LABS: VENOUS HCO3 17.7 MMOL/L (23.0-27.0); VENOUS O2 SATURATION 81.5 % (60.0-80.0); VENOUS PARTIAL PRESSURE O2 51.8 mmHg (30.0-50.0); VENOUS PH 7.347 UNITS (7.330-7.430); VENOUS STANDARD HCO3 18.5 MMOL/L; VENOUS TOTAL CO2 18.7 MMOL/L (24.0-28.0)
[2023-02-10 21:19] LABS: BASO % 0.2 % (0.0-1.0); HEMATOCRIT 32.4 % (36.0-47.0); HEMOGLOBIN 11.5 g/dl (12.0-15.5); LYMPH # 0.8 10^3/uL (1.5-5.0); LYMPH % 6.8 % (24.0-44.0); MEAN CORPUSCULAR HEMOGLOBIN 29.7 pg (27.0-33.0); MEAN CORPUSCULAR HGB CONC 35.5 g/dl (32.0-36.5); MEAN CORPUSCULAR VOLUME 83.7 fl (80.0-96.0); MONO # 0.5 10^3/uL (0.0-0.8); MONO % 4.4 % (2.0-8.0); NEUTROPHILS # 10.2 10^3/uL (1.5-8.5); NEUTROPHILS % 88.1 % (36.0-66.0); PLATELET COUNT, AUTOMATED 278 10^3/uL (150-450); RED BLOOD COUNT 3.87 10^6/uL (4.00-5.40); WHITE BLOOD COUNT 11.6 10^3/uL (4.0-10.0)
[2023-02-10 21:46] LABS: LIPASE 27 U/L (12-53)
[2023-02-10 21:56] LABS: ACETONE/KETONE > 4.50 MMOL/L (0.02-0.27); ALBUMIN 4.5 G/DL (3.2-5.2); ALKALINE PHOSPHATASE 80 U/L (46-116); ALT/SGPT 19 U/L (7.0-40); AST/SGOT 25 U/L (<34); BILIRUBIN,DIRECT 0.4 MG/DL (<0.4); BLOOD UREA NITROGEN 70 MG/DL (9-23); CALCIUM LEVEL 8.6 MG/DL (8.5-10.1); CARBON DIOXIDE LEVEL 17 MMOL/L (20-31); CHLORIDE LEVEL 84 MMOL/L (98-107); CREATININE FOR GFR 2.15 MG/DL (0.55-1.30); GLOMERULAR FILTRATION RATE 31.3 (>51); GLUCOSE, FASTING 530 MG/DL (60-100); POTASSIUM SERUM 4.1 MMOL/L (3.5-5.1); SODIUM LEVEL 128 MMOL/L (136-145); TOTAL PROTEIN 7.6 G/DL (5.7-8.2)
[2023-02-10 21:58] LABS: OSMOLALITY SERUM 322 MOSM/KG (275-295)
[2023-02-10 22:02] LABS: HEMOGLOBIN A1c 8.4 % (4.0-6.0)
[2023-02-10] MEDS ORDERED: HumuLIN R (REGULAR) INSULIN (NovoLIN R) **100U/ML** PER UNIT IV ONE (22:15)
[2023-02-10] MEDS ORDERED: INSULIN IV RATE CHANGE DOCUMENTATION ML/HR XX SCH (22:15)
[2023-02-10] MEDS ORDERED: INSULIN REGULAR IN 0.9 % NACL 100 UNIT in IV 1 EA IV SCH ×2 (22:15)
[2023-02-10] MEDS ORDERED: ALBUTEROL SULFATE 2.5MG/0.5ML INH NEB SOLN NEB PRN (22:25)
[2023-02-10] MEDS ORDERED: ONDANSETRON 4MG 2ML VIAL IV PRN (22:25)
[2023-02-10] MEDS ORDERED: NS 2,000 ML IV ONE (22:25)
[2023-02-10] MEDS ORDERED: ACETAMINOPHEN *IV* 500 MG in IV 1 EA IV PRN (22:35)
[2023-02-10] MEDS ORDERED: DEXT4TAB15 PO (23:57)
[2023-02-11] VITALS (11 sets, daily range): BP systolic 89–156; BP diastolic 52–90; TEMP 98.3–99.5; O2SAT 98–100
[2023-02-11] MEDS ORDERED: INSULIN REGULAR IN 0.9 % NACL 100 UNIT in IV 1 EA IV SCH ×2
[2023-02-11] MEDS ORDERED: HOME MED LIST COMPLETE! XX SCH
[2023-02-11] MEDS ORDERED: KCL 20MEQ in NS 1000ML 1,000 ML IV SCH (00:30)
[2023-02-11] MEDS ORDERED: HumuLIN R (REGULAR) INSULIN (NovoLIN R) **100U/ML** PER UNIT IV STA (00:33)
[2023-02-11 00:40] LABS: CALCIUM LEVEL 8.2 MG/DL (8.5-10.1); CREATININE FOR GFR 2.24 MG/DL (0.55-1.30); GLOMERULAR FILTRATION RATE 29.8 (>51); PHOSPHORUS LEVEL 9.1 MG/DL (2.5-4.9); POTASSIUM SERUM 4.4 MMOL/L (3.5-5.1)
[2023-02-11] MEDS ORDERED: LR 1,000 ML IV ONE (03:50)
[2023-02-11] MEDS: INSULIN IV RATE CHANGE DOCUMENTATION ML/HR XX SCH ×3 (04:08→06:16)
[2023-02-11 04:44] LABS: CALCIUM LEVEL 7.4 MG/DL (8.5-10.1); CREATININE FOR GFR 2.3 MG/DL (0.55-1.30); GLOMERULAR FILTRATION RATE 28.9 (>51); PHOSPHORUS LEVEL 5.1 MG/DL (2.5-4.9); POTASSIUM SERUM 3.2 MMOL/L (3.5-5.1)
[2023-02-11] MEDS ORDERED: KCL 10MEQ/100ML SWI (KRUN) 10 MEQ in IV 1 EA IV ONE (05:10)
[2023-02-11] MEDS: HEPARIN SOD (PORCINE) 5000UNITS/ML 1ML VIAL/SYRINGE SC SCH ×3 (05:32→20:40)
[2023-02-11] MEDS ORDERED: POTASSIUM CHLORIDE INJ 30 MEQ in D5W/0.45% SODIUM CHLORIDE 1,000 ML IV SCH (06:00)
[2023-02-11] MEDS ORDERED: DEXTROSE 50% 50ML SYRINGE IV STA ×2 (07:11→08:42)
[2023-02-11] MEDS ORDERED: KCL 20MEQ IN D5/0.45NS 1000ML 1,000 ML IV SCH (08:00)
[2023-02-11] MEDS: KCL 10MEQ/100ML SWI (KRUN) 10 MEQ in IV 1 EA IV SCH ×2 (08:05→09:57)
[2023-02-11 08:44] LABS: CALCIUM LEVEL 7.4 MG/DL (8.5-10.1); CREATININE FOR GFR 2.08 MG/DL (0.55-1.30); GLOMERULAR FILTRATION RATE 32.5 (>51); PHOSPHORUS LEVEL 4.3 MG/DL (2.5-4.9); POTASSIUM SERUM 3.7 MMOL/L (3.5-5.1)
[2023-02-11 08:53] LABS: APPEARANCE, URINE CLEAR (CLEAR); BACTERIA, URINE AUTO NEGATIVE (NEGATIVE); BILIRUBIN, URINE AUTO NEGATIVE (NEGATIVE); BLOOD, URINE BLOOD NEGATIVE (NEGATIVE); COLOR, URINE YELLOW (YELLOW); GLUCOSE, URINE (UA) AUTO 3+ mg/dL (NEGATIVE); KETONE, URINE AUTO 1+ mg/dL (NEGATIVE); LEUKOCYTE ESTERASE, URINE AUTO NEGATIVE (NEGATIVE); NITRITE, URINE AUTO NEGATIVE (NEGATIVE); PROTEIN, URINE AUTO NEGATIVE (NEGATIVE); RBC, URINE AUTO 1 /HPF (0-3); SPECIFIC GRAVITY URINE AUTO 1.016 (1.002-1.035); SQUAMOUS EPITHELIAL CELL UR AU 1 /HPF (0-6); UROBILINOGEN, URINE AUTO 0.2 mg/dL (0.0-2.0); WBC, URINE AUTO 1 /HPF (0-3)
[2023-02-11] MEDS: LEVEMIR (INSULIN DETEMIR) 1 UNITS/0.01ML SC SCH ×2 (09:56→20:41)
[2023-02-11] MEDS: PANTOPRAZOLE 40MG VIAL IV SCH (09:57)
[2023-02-11] MEDS: METOCLOPRAMIDE INJ 10MG/2ML VIAL IV PRN (10:44)
[2023-02-11] MEDS ORDERED: GLUCOSE 4GM CHEW TABLET PO PRN (12:00)
[2023-02-11] MEDS ORDERED: GLUCAGON INJ 1MG VIAL SC PRN (12:00)
[2023-02-11] MEDS ORDERED: INSULIN LISPRO (NovoLOG) PER UNIT SC SCH ×2 (12:00→21:00)
[2023-02-11 13:54] LABS: CALCIUM LEVEL 7.3 MG/DL (8.5-10.1); CREATININE FOR GFR 1.87 MG/DL (0.55-1.30); GLOMERULAR FILTRATION RATE 36.8 (>51); PHOSPHORUS LEVEL 3.8 MG/DL (2.5-4.9); POTASSIUM SERUM 5.1 MMOL/L (3.5-5.1)
[2023-02-11] MEDS ORDERED: NS 0.45% 1,000 ML IV SCH (14:30)
[2023-02-11] MEDS: ACETAMINOPHEN 500 MG TAB PO PRN ×2 (16:31→16:39)
[2023-02-11] MEDS: INSULIN LISPRO (NovoLOG) PER UNIT SC SCH (17:41)
[2023-02-12] MEDS: NS 1,000 ML IV SCH ×3 (00:04→17:53)
[2023-02-12] MEDS: DEXTROSE 50% 50ML SYRINGE IV PRN ×2 (00:04→06:02)
[2023-02-12] MEDS ORDERED: SODIUM CHLORIDE 0.9% INJ 10 ML SYR IV PRN (00:10)
[2023-02-12] MEDS: METOCLOPRAMIDE INJ 10MG/2ML VIAL IV PRN (00:31)
[2023-02-12] MEDS ORDERED: MORPHINE 2 MG/ML 1ML VIAL IV ONE (00:50)
[2023-02-12] MEDS: HEPARIN SOD (PORCINE) 5000UNITS/ML 1ML VIAL/SYRINGE SC SCH ×3 (05:19→21:11)
[2023-02-12] MEDS: SODIUM CHLORIDE 0.9% INJ 10 ML SYR IV SCH ×3 (05:33→21:11)
[2023-02-12 06:00] VITALS: BP 142/78; TEMP 98.4; O2SAT 98
[2023-02-12] MEDS: INSULIN LISPRO (NovoLOG) PER UNIT SC SCH ×4 (09:04→17:52)
[2023-02-12] MEDS: METOCLOPRAMIDE INJ 10MG/2ML VIAL IV SCH ×3 (10:25→21:09)
[2023-02-12] MEDS: PANTOPRAZOLE 40MG VIAL IV SCH (10:25)
[2023-02-12 10:31] LABS: CALCIUM LEVEL 8.5 MG/DL (8.5-10.1); CREATININE FOR GFR 1.4 MG/DL (0.55-1.30); GLOMERULAR FILTRATION RATE 51.3 (>51); POTASSIUM SERUM 4.8 MMOL/L (3.5-5.1)
[2023-02-12] MEDS: LEVEMIR (INSULIN DETEMIR) 1 UNITS/0.01ML SC SCH ×2 (11:04→21:10)
[2023-02-12 14:00] VITALS: BP 128/67; TEMP 99.9; O2SAT 98
[2023-02-12] MEDS: MORPHINE 4 MG/ML 1ML VIAL IV PRN (14:04)
[2023-02-12 20:00] VITALS: BP 132/74; TEMP 97.4; O2SAT 98
[2023-02-12] MEDS ORDERED: INSULIN LISPRO (NovoLOG) PER UNIT SC SCH (21:00)
[2023-02-13] MEDS: NS 1,000 ML IV SCH ×2 (02:01→09:20)
[2023-02-13] MEDS: METOCLOPRAMIDE INJ 10MG/2ML VIAL IV SCH ×2 (02:05→09:21)
[2023-02-13] MEDS: HEPARIN SOD (PORCINE) 5000UNITS/ML 1ML VIAL/SYRINGE SC SCH (05:31)
[2023-02-13] MEDS: SODIUM CHLORIDE 0.9% INJ 10 ML SYR IV SCH (05:31)
[2023-02-13] MEDS: MORPHINE 4 MG/ML 1ML VIAL IV PRN (05:53)
[2023-02-13 06:00] VITALS: BP 149/104; TEMP 98.7; O2SAT 100
[2023-02-13 06:44] LABS: BASO % 0.6 % (0.0-1.0); EOS # 0.1 10^3/uL (0.0-0.5); EOS % 1.9 % (0.0-3.0); HEMATOCRIT 26.7 % (36.0-47.0); HEMOGLOBIN 8.9 g/dl (12.0-15.5); LYMPH # 1.6 10^3/uL (1.5-5.0); LYMPH % 35.1 % (24.0-44.0); MEAN CORPUSCULAR HEMOGLOBIN 29.5 pg (27.0-33.0); MEAN CORPUSCULAR HGB CONC 33.3 g/dl (32.0-36.5); MEAN CORPUSCULAR VOLUME 88.4 fl (80.0-96.0); MONO # 0.4 10^3/uL (0.0-0.8); MONO % 9.1 % (2.0-8.0); NEUTROPHILS # 2.5 10^3/uL (1.5-8.5); NEUTROPHILS % 53.3 % (36.0-66.0); PLATELET COUNT, AUTOMATED 167 10^3/uL (150-450); RED BLOOD COUNT 3.02 10^6/uL (4.00-5.40); WHITE BLOOD COUNT 4.6 10^3/uL (4.0-10.0)
[2023-02-13 07:20] LABS: BLOOD UREA NITROGEN 20 MG/DL (9-23); CALCIUM LEVEL 8.4 MG/DL (8.5-10.1); CARBON DIOXIDE LEVEL 24 MMOL/L (20-31); CHLORIDE LEVEL 109 MMOL/L (98-107); CREATININE FOR GFR 1.18 MG/DL (0.55-1.30); GLOMERULAR FILTRATION RATE > 60.0 (>51); GLUCOSE, FASTING 99 MG/DL (60-100); POTASSIUM SERUM 3.9 MMOL/L (3.5-5.1); SODIUM LEVEL 140 MMOL/L (136-145)
[2023-02-13] MEDS: INSULIN LISPRO (NovoLOG) PER UNIT SC SCH ×2 (07:59→08:00)
[2023-02-13] MEDS ORDERED: METO10TA2 PO (08:50)
[2023-02-13] MEDS ORDERED: INSUHUMDS SC (08:50)
[2023-02-13] MEDS ORDERED: INSU100I48 SC (08:50)
[2023-02-13] MEDS ORDERED: ADME100I SC (08:50)
[2023-02-13] MEDS: LEVEMIR (INSULIN DETEMIR) 1 UNITS/0.01ML SC SCH (09:21)
[2023-02-13] MEDS: PANTOPRAZOLE 40MG VIAL IV SCH (09:21)
== END 2023-02-13 10:40 | disposition home or self-care (01) | DRG 420 ==
LOC: M ED 20:00 → EDBD 20:00 → M ED INP 22:25 → M ICU 02-11 00:12 → M MS4PR 02-11 15:43
PROVIDERS: ADMIT Internal Medicine; ATTEND Internal Medicine
PROC: 02HV33Z Insertion of Infusion Device into Superior Vena Cava, Percutaneous Approach (ICD-10-PCS; principal; 2023-02-11)
DX: E10.10 Type 1 diabetes mellitus with ketoacidosis without coma (principal); K31.84 Gastroparesis; N17.9 Acute kidney failure, unspecified; E10.22 Type 1 diabetes mellitus with diabetic chronic kidney disease; N18.30 Chronic kidney disease, stage 3 unspecified; E10.43 Type 1 diabetes mellitus with diabetic autonomic (poly)neuropathy; R11.2 Nausea with vomiting, unspecified; E10.65 Type 1 diabetes mellitus with hyperglycemia; F12.188 Cannabis abuse with other cannabis-induced disorder; Z79.4 Long term (current) use of insulin

== ENCOUNTER 2023-02-28 19:40 | Inpatient (IN) | payer MEDICAID, OTHER ==
[~2023-02-28] VITALS: Ht 170.2 cm; Wt 64.7 kg
[~2023-02-28 19:40] MED LIST changes: +DEXT4TAB15 PO; +INSUHUMDS SC
[2023-02-28] MEDS ORDERED: HumuLIN R (REGULAR) INSULIN (NovoLIN R) **100U/ML** PER UNIT IV ONE (20:05)
[2023-02-28 21:06] LABS: VENOUS BASE EXCESS -2.9 (-2.0-2.0); VENOUS HCO3 20.3 MMOL/L (23.0-27.0); VENOUS O2 SATURATION 90.6 % (60.0-80.0); VENOUS PARTIAL PRESSURE O2 60.9 mmHg (30.0-50.0); VENOUS PH 7.448 UNITS (7.330-7.430); VENOUS STANDARD HCO3 21.9 MMOL/L; VENOUS TOTAL CO2 21.2 MMOL/L (24.0-28.0)
[2023-02-28 21:15] LABS: BASO # 0.1 10^3/uL (0.0-0.2); BASO % 0.3 % (0.0-1.0); HEMOGLOBIN 9.8 g/dl (12.0-15.5); LYMPH # 0.5 10^3/uL (1.5-5.0); LYMPH % 3.2 % (24.0-44.0); MEAN CORPUSCULAR HEMOGLOBIN 29.4 pg (27.0-33.0); MEAN CORPUSCULAR VOLUME 84.1 fl (80.0-96.0); MONO # 0.5 10^3/uL (0.0-0.8); MONO % 3.5 % (2.0-8.0); NEUTROPHILS # 13.3 10^3/uL (1.5-8.5); NEUTROPHILS % 92.7 % (36.0-66.0); PLATELET COUNT, AUTOMATED 325 10^3/uL (150-450); RED BLOOD COUNT 3.33 10^6/uL (4.00-5.40); WHITE BLOOD COUNT 14.4 10^3/uL (4.0-10.0)
[2023-02-28 21:37] LABS: LIPASE 25 U/L (12-53)
[2023-02-28 21:38] LABS: CK-MB VALUE MASS < 1.0 NG/ML (<3.6)
[2023-02-28 21:42] LABS: HEMOGLOBIN A1c 8.4 % (4.0-6.0)
[2023-02-28 22:10] LABS: ACETONE/KETONE > 4.50 MMOL/L (0.02-0.27); ALKALINE PHOSPHATASE 71 U/L (46-116); ALT/SGPT 31 U/L (7.0-40); AST/SGOT 36 U/L (<34); BILIRUBIN,DIRECT 0.3 MG/DL (<0.4); BILIRUBIN,TOTAL 0.8 MG/DL (0.3-1.2); BLOOD UREA NITROGEN 37 MG/DL (9-23); CALCIUM LEVEL 8.7 MG/DL (8.5-10.1); CARBON DIOXIDE LEVEL 20 MMOL/L (20-31); CHLORIDE LEVEL 97 MMOL/L (98-107); CPK CREATINE PHOSPHOKINASE 63 U/L (34-145); CREATININE FOR GFR 1.34 MG/DL (0.55-1.30); GLUCOSE, FASTING 403 MG/DL (60-100); MB/CK RELATIVE INDEX 1.58 (< OR =4); SODIUM LEVEL 138 MMOL/L (136-145); TOTAL PROTEIN 6.7 G/DL (5.7-8.2)
[2023-02-28 22:12] LABS: OSMOLALITY SERUM 311 MOSM/KG (275-295)
[2023-02-28] MEDS ORDERED: METOCLOPRAMIDE INJ 10MG/2ML VIAL IV ONE (22:45)
[2023-02-28] MEDS ORDERED: NS 1,000 ML IV ONE (22:45)
[2023-02-28 23:19] LABS: CK-MB VALUE MASS < 1.0 NG/ML (<3.6)
[2023-02-28 23:21] LABS: CPK CREATINE PHOSPHOKINASE 56 U/L (34-145); MB/CK RELATIVE INDEX 1.78 (< OR =4)
[2023-02-28] MEDS ORDERED: INSU100I48 SQ (23:37)
[2023-02-28] MEDS ORDERED: METO10TA2 PO (23:37)
[2023-02-28 23:42] LABS: AMPHETAMINES LEVEL URINE NEGATIVE (NEGATIVE); BARBITURATES URINE NEGATIVE (NEGATIVE); BENZODIAZEPINES URINE NEGATIVE (NEGATIVE); COCAINE METABOLITE URINE NEGATIVE (NEGATIVE); METHADONE URINE NEGATIVE (NEGATIVE)
[2023-02-28 23:43] LABS: OPIATES URINE NEGATIVE (NEGATIVE); PHENCYCLIDINE URINE NEGATIVE (NEGATIVE)
[2023-02-28 23:44] LABS: CANNABINOIDS URINE POSITIVE (NEGATIVE)
[2023-02-28] MEDS ORDERED: ADME100I2 SC (23:44)
[2023-02-28] MEDS ORDERED: MOM 30ML SUSPENSION UDC PO PRN (23:45)
[2023-02-28] MEDS ORDERED: INSULIN REGULAR IN 0.9 % NACL 100 UNIT in IV 1 EA IV SCH ×2 (23:45)
[2023-02-28] MEDS ORDERED: INSU100V6 SQ (23:47)
[2023-02-28] MEDS ORDERED: HOME MED LIST COMPLETE! XX SCH (23:50)
[2023-03-01] VITALS (10 sets, daily range): BP systolic 91–171; BP diastolic 55–90; TEMP 97.3–98.6; O2SAT 99–100
[2023-03-01 01:00] LABS: VENOUS BASE EXCESS -0.8 (-2.0-2.0); VENOUS O2 SATURATION 80.6 % (60.0-80.0); VENOUS PARTIAL PRESSURE CO2 34.9 mmHg (38.0-50.0); VENOUS PARTIAL PRESSURE O2 45.7 mmHg (30.0-50.0); VENOUS PH 7.437 UNITS (7.330-7.430); VENOUS STANDARD HCO3 23.5 MMOL/L; VENOUS TOTAL CO2 24.1 MMOL/L (24.0-28.0)
[2023-03-01] MEDS ORDERED: MORPHINE 2 MG/ML 1ML VIAL IV ONE (01:30)
[2023-03-01 01:37] LABS: CREATININE FOR GFR 1.42 MG/DL (0.55-1.30); GLOMERULAR FILTRATION RATE 50.5 (>51); POTASSIUM SERUM 3.9 MMOL/L (3.5-5.1)
[2023-03-01] MEDS: KCL 20MEQ IN D5/0.45NS 1000ML 1,000 ML IV SCH ×2 (02:02→06:00)
[2023-03-01] MEDS: INSULIN IV RATE CHANGE DOCUMENTATION ML/HR XX SCH ×3 (03:05→05:00)
[2023-03-01 04:38] LABS: VENOUS BASE EXCESS -3.1 (-2.0-2.0); VENOUS HCO3 21.3 MMOL/L (23.0-27.0); VENOUS O2 SATURATION 99.1 % (60.0-80.0); VENOUS PARTIAL PRESSURE CO2 35.1 mmHg (38.0-50.0); VENOUS PARTIAL PRESSURE O2 176.9 mmHg (30.0-50.0); VENOUS STANDARD HCO3 21.9 MMOL/L; VENOUS TOTAL CO2 22.3 MMOL/L (24.0-28.0)
[2023-03-01] MEDS: METOCLOPRAMIDE INJ 10MG/2ML VIAL IV SCH ×4 (05:00→23:19)
[2023-03-01 05:12] LABS: CALCIUM LEVEL 8.1 MG/DL (8.5-10.1); CREATININE FOR GFR 1.46 MG/DL (0.55-1.30); GLOMERULAR FILTRATION RATE 48.9 (>51); POTASSIUM SERUM 3.2 MMOL/L (3.5-5.1)
[2023-03-01] MEDS ORDERED: LEVEMIR (INSULIN DETEMIR) 1 UNITS/0.01ML SC ONE (05:25)
[2023-03-01] MEDS ORDERED: POTASSIUM CHLORIDE 10% LIQ 20MEQ/15ML UDC PO ONE (05:25)
[2023-03-01] MEDS ORDERED: KCL 10MEQ/100ML SWI (KRUN) 10 MEQ in IV 1 EA IV SCH (06:00)
[2023-03-01] MEDS: HEPARIN SOD (PORCINE) 5000UNITS/ML 1ML VIAL/SYRINGE SC SCH ×3 (06:00→21:21)
[2023-03-01] MEDS ORDERED: GLUCOSE 4GM CHEW TABLET PO PRN (06:55)
[2023-03-01] MEDS ORDERED: GLUCAGON INJ 1MG VIAL SC PRN (06:55)
[2023-03-01] MEDS: DEXTROSE 50% 50ML SYRINGE IV PRN ×2 (07:01→11:44)
[2023-03-01] MEDS: INSULIN LISPRO (NovoLOG) PER UNIT SC SCH ×4 (07:30→17:24)
[2023-03-01 08:12] LABS: VENOUS BASE EXCESS 0.1 (-2.0-2.0); VENOUS PARTIAL PRESSURE CO2 36.3 mmHg (38.0-50.0); VENOUS PARTIAL PRESSURE O2 154.4 mmHg (30.0-50.0); VENOUS PH 7.439 UNITS (7.330-7.430); VENOUS STANDARD HCO3 24.6 MMOL/L; VENOUS TOTAL CO2 25.2 MMOL/L (24.0-28.0)
[2023-03-01 08:44] LABS: CALCIUM LEVEL 8.3 MG/DL (8.5-10.1); CREATININE FOR GFR 1.4 MG/DL (0.55-1.30); GLOMERULAR FILTRATION RATE 51.3 (>51); MAGNESIUM LEVEL 1.5 MG/DL (1.8-2.4); PHOSPHORUS LEVEL 3.8 MG/DL (2.5-4.9); POTASSIUM SERUM 3.8 MMOL/L (3.5-5.1)
[2023-03-01 08:46] LABS: ACETONE/KETONE 0.07 MMOL/L (0.02-0.27)
[2023-03-01] MEDS ORDERED: POTASSIUM CHLORIDE 10MEQ SR TABLET PO ONE ×2 (09:00→12:00)
[2023-03-01] MEDS: PANTOPRAZOLE 40MG VIAL IV SCH (09:57)
[2023-03-01] MEDS: LR 1,000 ML IV SCH ×2 (14:19→23:19)
[2023-03-01] MEDS: MAG SULF 1GM/100ML (MAG RUN) 1 GM in IV 1 EA IV SCH ×4 (14:19→18:16)
[2023-03-01] MEDS ORDERED: MORPHINE 2 MG/ML 1ML VIAL IV PRN (19:20)
[2023-03-01] MEDS ORDERED: traMADol 50 MG TAB PO ONE (19:25)
[2023-03-01] MEDS: LEVEMIR (INSULIN DETEMIR) 1 UNITS/0.01ML SC SCH (20:23)
[2023-03-01] MEDS ORDERED: LEVEMIR (INSULIN DETEMIR) 1 UNITS/0.01ML SC SCH (21:00)
[2023-03-01] MEDS ORDERED: INSULIN LISPRO (NovoLOG) PER UNIT SC SCH ×2 (21:00)
[2023-03-02] MEDS ORDERED: D5W 1,000 ML IV SCH (03:15)
[2023-03-02] MEDS: HEPARIN SOD (PORCINE) 5000UNITS/ML 1ML VIAL/SYRINGE SC SCH (05:02)
[2023-03-02 05:07] VITALS: BP 127/71; TEMP 97.8; O2SAT 98
[2023-03-02 06:27] LABS: BASO % 0.2 % (0.0-1.0); EOS % 0.5 % (0.0-3.0); HEMATOCRIT 26.3 % (36.0-47.0); HEMOGLOBIN 8.9 g/dl (12.0-15.5); LYMPH # 0.3 10^3/uL (1.5-5.0); LYMPH % 4.7 % (24.0-44.0); MEAN CORPUSCULAR HEMOGLOBIN 28.8 pg (27.0-33.0); MEAN CORPUSCULAR HGB CONC 33.8 g/dl (32.0-36.5); MEAN CORPUSCULAR VOLUME 85.1 fl (80.0-96.0); MONO # 0.2 10^3/uL (0.0-0.8); MONO % 3.6 % (2.0-8.0); NEUTROPHILS % 90.8 % (36.0-66.0); PLATELET COUNT, AUTOMATED 228 10^3/uL (150-450); RED BLOOD COUNT 3.09 10^6/uL (4.00-5.40); WHITE BLOOD COUNT 5.5 10^3/uL (4.0-10.0)
[2023-03-02] MEDS: METOCLOPRAMIDE INJ 10MG/2ML VIAL IV SCH ×2 (06:35→11:00)
[2023-03-02 06:54] LABS: BLOOD UREA NITROGEN 22 MG/DL (9-23); CALCIUM LEVEL 8.4 MG/DL (8.5-10.1); CARBON DIOXIDE LEVEL 22 MMOL/L (20-31); CHLORIDE LEVEL 100 MMOL/L (98-107); CREATININE FOR GFR 1.09 MG/DL (0.55-1.30); GLOMERULAR FILTRATION RATE > 60.0 (>51); GLUCOSE, FASTING 126 MG/DL (60-100); POTASSIUM SERUM 3.8 MMOL/L (3.5-5.1); SODIUM LEVEL 132 MMOL/L (136-145)
[2023-03-02] MEDS: INSULIN LISPRO (NovoLOG) PER UNIT SC SCH ×4 (07:30→12:15)
[2023-03-02] MEDS: PANTOPRAZOLE 40MG VIAL IV SCH (10:13)
[2023-03-02] MEDS: LEVEMIR (INSULIN DETEMIR) 1 UNITS/0.01ML SC SCH (10:14)
[2023-03-02] MEDS ORDERED: PEN-308 SC (12:21)
[2023-03-02] MEDS ORDERED: INSUHUMDS SC (12:26)
[2023-03-02] MEDS ORDERED: INSU1MIS20 SC (12:26)
== END 2023-03-02 13:10 | disposition home or self-care (01) | DRG 420 ==
LOC: M ED 19:40 → EDBD 19:40 → M ED INP 23:44 → M ICU 03-01 01:21 → M MSPAV 03-01 16:59
PROVIDERS: ADMIT Family Medicine; ATTEND Internal Medicine
DX: E10.10 Type 1 diabetes mellitus with ketoacidosis without coma (principal); K31.84 Gastroparesis; E83.42 Hypomagnesemia; I48.0 Paroxysmal atrial fibrillation; N17.9 Acute kidney failure, unspecified; N18.30 Chronic kidney disease, stage 3 unspecified; E10.22 Type 1 diabetes mellitus with diabetic chronic kidney disease; E10.43 Type 1 diabetes mellitus with diabetic autonomic (poly)neuropathy; E10.65 Type 1 diabetes mellitus with hyperglycemia; E86.0 Dehydration; F12.288 Cannabis dependence with other cannabis-induced disorder; Z87.891 Personal history of nicotine dependence; R11.2 Nausea with vomiting, unspecified; Z79.4 Long term (current) use of insulin; Z79.899 Other long term (current) drug therapy; E87.6 Hypokalemia

== ENCOUNTER 2023-03-16 18:00 | Observation (INO) | payer MEDICAID, OTHER ==
[~2023-03-16] VITALS: Ht 167.6 cm; Wt 61.0 kg
[~2023-03-16 18:00] MED LIST changes: +ADME100I2 SC; -DEXT4TAB15 PO; +DEXT4TAB9 PO; +INSU100I48 SQ; +INSU100V6 SQ
[2023-03-16 19:12] LABS: VENOUS BASE EXCESS -7.7 (-2.0-2.0); VENOUS HCO3 15.6 MMOL/L (23.0-27.0); VENOUS O2 SATURATION 80.4 % (60.0-80.0); VENOUS PARTIAL PRESSURE CO2 26.1 mmHg (38.0-50.0); VENOUS PH 7.393 UNITS (7.330-7.430); VENOUS STANDARD HCO3 17.9 MMOL/L; VENOUS TOTAL CO2 16.4 MMOL/L (24.0-28.0)
[2023-03-16 19:20] LABS: BASO # 0.1 10^3/uL (0.0-0.2); BASO % 0.6 % (0.0-1.0); HEMATOCRIT 34.4 % (36.0-47.0); HEMOGLOBIN 11.7 g/dl (12.0-15.5); LYMPH # 0.2 10^3/uL (1.5-5.0); LYMPH % 1.8 % (24.0-44.0); MEAN CORPUSCULAR VOLUME 85.4 fl (80.0-96.0); MONO # 0.7 10^3/uL (0.0-0.8); MONO % 5.8 % (2.0-8.0); NEUTROPHILS # 10.9 10^3/uL (1.5-8.5); NEUTROPHILS % 91.4 % (36.0-66.0); PLATELET COUNT, AUTOMATED 318 10^3/uL (150-450); RED BLOOD COUNT 4.03 10^6/uL (4.00-5.40); WHITE BLOOD COUNT 11.9 10^3/uL (4.0-10.0)
[2023-03-16] MEDS ORDERED: MORPHINE 4 MG/ML 1ML VIAL IV ONE (19:40)
[2023-03-16] MEDS ORDERED: METOCLOPRAMIDE INJ 10MG/2ML VIAL IV ONE (19:40)
[2023-03-16] MEDS ORDERED: NS 1,000 ML IV SCH ×2 (19:40→21:30)
[2023-03-16 20:05] LABS: ALKALINE PHOSPHATASE 83 U/L (46-116); ALT/SGPT 40 U/L (7.0-40); AST/SGOT 43 U/L (<34); BLOOD UREA NITROGEN 40 MG/DL (9-23); CARBON DIOXIDE LEVEL 15 MMOL/L (20-31); CHLORIDE LEVEL 94 MMOL/L (98-107); CREATININE FOR GFR 1.55 MG/DL (0.55-1.30); GLOMERULAR FILTRATION RATE 45.7 (>51); GLUCOSE, FASTING 418 MG/DL (60-100); OSMOLALITY SERUM 310 MOSM/KG (275-295); POTASSIUM SERUM 4.8 MMOL/L (3.5-5.1); SODIUM LEVEL 133 MMOL/L (136-145)
[2023-03-16 20:06] LABS: ACETONE/KETONE > 4.50 MMOL/L (0.02-0.27); ALBUMIN 4.6 G/DL (3.2-5.2); BILIRUBIN,DIRECT 0.3 MG/DL (<0.4); TOTAL PROTEIN 7.8 G/DL (5.7-8.2)
[2023-03-16 20:08] LABS: HEMOGLOBIN A1c 8.1 % (4.0-6.0)
[2023-03-16 20:11] LABS: LIPASE 28 U/L (12-53)
[2023-03-16] MEDS ORDERED: HumuLIN R (REGULAR) INSULIN (NovoLIN R) **100U/ML** PER UNIT IV ONE (20:15)
[2023-03-16] MEDS ORDERED: NS 1,000 ML IV ONE ×2 (20:15→21:30)
[2023-03-16] MEDS ORDERED: INSULIN IV RATE CHANGE DOCUMENTATION ML/HR XX SCH (20:15)
[2023-03-16] MEDS ORDERED: INSULIN REGULAR IN 0.9 % NACL 100 UNIT in IV 1 EA IV SCH ×2 (20:15)
[2023-03-16] MEDS ORDERED: METO10TA3 PO (20:49)
[2023-03-16] MEDS ORDERED: HOME MED LIST COMPLETE! XX SCH (20:50)
[2023-03-16] MEDS ORDERED: HumuLIN R (REGULAR) INSULIN (NovoLIN R) **100U/ML** PER UNIT IV STA ×2 (21:27→22:09)
[2023-03-16] MEDS ORDERED: LEVEMIR (INSULIN DETEMIR) 1 UNITS/0.01ML SC ONE (21:40)
[2023-03-16 21:58] LABS: RSV AMPLIFICATION NEGATIVE (NEGATIVE)
[2023-03-17 00:26] LABS: CALCIUM LEVEL 7.8 MG/DL (8.5-10.1); CREATININE FOR GFR 1.47 MG/DL (0.55-1.30); GLOMERULAR FILTRATION RATE 48.5 (>51); PHOSPHORUS LEVEL 4.3 MG/DL (2.5-4.9); POTASSIUM SERUM 3.1 MMOL/L (3.5-5.1)
[2023-03-17] MEDS ORDERED: ALBUTEROL 90 MCG/ACT 8GM HFA INHALER INH PRN (01:05)
[2023-03-17] MEDS ORDERED: ONDANSETRON 4MG 2ML VIAL IV PRN (01:05)
[2023-03-17] MEDS ORDERED: GLUCOSE 4GM CHEW TABLET PO PRN (01:05)
[2023-03-17] MEDS ORDERED: GLUCAGON INJ 1MG VIAL SC PRN (01:05)
[2023-03-17] MEDS: KCL 10MEQ/100ML SWI (KRUN) 10 MEQ in IV 1 EA IV SCH ×3 (02:00→04:00)
[2023-03-17] MEDS: DEXTROSE 50% 50ML SYRINGE IV PRN (04:35)
[2023-03-17] MEDS ORDERED: D5W/0.9% SODIUM CHLORIDE 1,000 ML IV SCH (05:00)
[2023-03-17] MEDS ORDERED: POTASSIUM CHLORIDE 10% LIQ 20MEQ/15ML UDC PO ONE (05:00)
[2023-03-17] MEDS ORDERED: REMDESIVIR 200 MG in NS 250 ML IV ONE (06:00)
[2023-03-17] MEDS: HEPARIN SOD (PORCINE) 5000UNITS/ML 1ML VIAL/SYRINGE SQ SCH ×3 (06:04→21:31)
[2023-03-17 06:50] LABS: CALCIUM LEVEL 8.6 MG/DL (8.5-10.1); CREATININE FOR GFR 1.37 MG/DL (0.55-1.30); GLOMERULAR FILTRATION RATE 52.6 (>51); MAGNESIUM LEVEL 1.6 MG/DL (1.8-2.4); PHOSPHORUS LEVEL 4.5 MG/DL (2.5-4.9); POTASSIUM SERUM 3.8 MMOL/L (3.5-5.1)
[2023-03-17] MEDS ORDERED: INSULIN LISPRO (NovoLOG) PER UNIT SC SCH ×3 (07:30→21:00)
[2023-03-17] MEDS: LEVEMIR (INSULIN DETEMIR) 1 UNITS/0.01ML SC SCH ×2 (08:28→21:31)
[2023-03-17] MEDS: PANTOPRAZOLE 40MG VIAL IV SCH (08:39)
[2023-03-17] MEDS ORDERED: LEVEMIR (INSULIN DETEMIR) 1 UNITS/0.01ML SC SCH (09:00)
[2023-03-17] MEDS ORDERED: MAGNESIUM OXIDE 400MG TAB (MAG-OX) PO ONE (09:00)
[2023-03-17] MEDS: MAG SULF 1GM/100ML (MAG RUN) 1 GM in IV 1 EA IV SCH ×2 (09:25→11:03)
[2023-03-17 09:36] LABS: CREATININE FOR GFR 1.29 MG/DL (0.55-1.30); GLOMERULAR FILTRATION RATE 56.4 (>51); POTASSIUM SERUM 3.8 MMOL/L (3.5-5.1)
[2023-03-17] MEDS ORDERED: METOCLOPRAMIDE INJ 10MG/2ML VIAL IV PRN (10:25)
[2023-03-17 10:38] VITALS: BP 141/89; TEMP 97.7; O2SAT 100
[2023-03-17] MEDS: LR 1,000 ML IV SCH ×3 (10:51→23:16)
[2023-03-17 12:01] VITALS: O2SAT 98
[2023-03-17] MEDS: INSULIN LISPRO (NovoLOG) PER UNIT SC SCH ×4 (13:25→17:45)
[2023-03-17 14:00] VITALS: BP 125/80; TEMP 97.9; O2SAT 100
[2023-03-17 20:00] VITALS: O2SAT 96
[2023-03-17] MEDS ORDERED: MORPHINE 4 MG/ML 1ML VIAL IV PRN (20:50)
[2023-03-17] MEDS ORDERED: ACETAMINOPHEN TAB 650MG DOSE (2X325MG) PO PRN (20:50)
[2023-03-18] VITALS: O2SAT 96
[2023-03-18] MEDS: HEPARIN SOD (PORCINE) 5000UNITS/ML 1ML VIAL/SYRINGE SQ SCH (05:19)
[2023-03-18 05:23] VITALS: BP 144/80; TEMP 97.9; O2SAT 100
[2023-03-18] MEDS ORDERED: REMDESIVIR 100 MG in NS 250 ML IV SCH (06:00)
[2023-03-18] MEDS: DEXTROSE 50% 50ML SYRINGE IV PRN (06:16)
[2023-03-18 06:24] LABS: BASO % 0.6 % (0.0-1.0); EOS % 0.6 % (0.0-3.0); HEMATOCRIT 29.3 % (36.0-47.0); LYMPH # 1.1 10^3/uL (1.5-5.0); LYMPH % 22.2 % (24.0-44.0); MEAN CORPUSCULAR HEMOGLOBIN 28.7 pg (27.0-33.0); MEAN CORPUSCULAR HGB CONC 33.1 g/dl (32.0-36.5); MEAN CORPUSCULAR VOLUME 86.7 fl (80.0-96.0); MONO # 0.7 10^3/uL (0.0-0.8); MONO % 13.5 % (2.0-8.0); NEUTROPHILS # 3.1 10^3/uL (1.5-8.5); NEUTROPHILS % 62.9 % (36.0-66.0); PLATELET COUNT, AUTOMATED 243 10^3/uL (150-450); RED BLOOD COUNT 3.38 10^6/uL (4.00-5.40)
[2023-03-18 06:44] LABS: HEMOGLOBIN 9.7 g/dl (12.0-15.5)
[2023-03-18 06:45] LABS: BLOOD UREA NITROGEN 19 MG/DL (9-23); CALCIUM LEVEL 8.8 MG/DL (8.5-10.1); CARBON DIOXIDE LEVEL 23 MMOL/L (20-31); CHLORIDE LEVEL 105 MMOL/L (98-107); CREATININE FOR GFR 1.16 MG/DL (0.55-1.30); GLOMERULAR FILTRATION RATE > 60.0 (>51); GLUCOSE, FASTING 51 MG/DL (60-100); POTASSIUM SERUM 3.6 MMOL/L (3.5-5.1); SODIUM LEVEL 140 MMOL/L (136-145)
[2023-03-18] MEDS: INSULIN LISPRO (NovoLOG) PER UNIT SC SCH ×4 (07:30→12:48)
[2023-03-18 08:01] LABS: MAGNESIUM LEVEL 1.9 MG/DL (1.8-2.4)
[2023-03-18] MEDS: LEVEMIR (INSULIN DETEMIR) 1 UNITS/0.01ML SC SCH (08:53)
[2023-03-18] MEDS: PANTOPRAZOLE 40MG VIAL IV SCH (08:53)
[2023-03-18] MEDS ORDERED: ACET1TAB55 PO (10:52)
== END 2023-03-18 13:26 | disposition home or self-care (01) ==
LOC: EDBD 18:00 → M ED 18:00 → M ED INP 03-17 00:49 → ENRESERV 03-17 09:11 → M MSPAV 03-17 10:34
PROVIDERS: ADMIT Internal Medicine; ATTEND Internal Medicine
DX: E10.10 Type 1 diabetes mellitus with ketoacidosis without coma (principal); U07.1 COVID-19; N17.9 Acute kidney failure, unspecified; R11.2 Nausea with vomiting, unspecified; F12.188 Cannabis abuse with other cannabis-induced disorder; E83.42 Hypomagnesemia; E10.43 Type 1 diabetes mellitus with diabetic autonomic (poly)neuropathy; N18.30 Chronic kidney disease, stage 3 unspecified; E10.22 Type 1 diabetes mellitus with diabetic chronic kidney disease; Z91.119 Patient's noncompliance with dietary regimen due to unspecified reason; Z91.148 Patient's other noncompliance with medication regimen for other reason; Z79.899 Other long term (current) drug therapy; Z79.4 Long term (current) use of insulin
CPT/HCPCS: 36415; 71045; 80048; 80076; 81001; 82010; 82803; 83036; 83690; 83735; 83930; 84100; 85025; 87631; 93005; 93041; 94760; 96361; 96365; 96366; 96372; 96375; 96376; 99285; C9113; J1815; J2765; J3475

== ENCOUNTER 2023-04-26 15:42 | Inpatient (IN) | payer OTHER ==
[~2023-04-26] VITALS: Ht 170.2 cm; Wt 58.5 kg
[~2023-04-26 15:42] MED LIST changes: +ACET1TAB55 PO; +BACI1CAP PO; +LEVO1TAB40 PO; +METO10TA3 PO; +NEUTPW PO
[2023-04-26] MEDS ORDERED: METOCLOPRAMIDE INJ 10MG/2ML VIAL IV ONE (16:00)
[2023-04-26] MEDS ORDERED: NS 1,000 ML IV ONE ×2 (16:00→18:30)
[2023-04-26] MEDS ORDERED: MORPHINE 2 MG/ML 1ML VIAL IV ONE (16:00)
[2023-04-26 16:08] LABS: VENOUS BASE EXCESS -6.8 (-2.0-2.0); VENOUS HCO3 15.6 MMOL/L (23.0-27.0); VENOUS O2 SATURATION 83.9 % (60.0-80.0); VENOUS PARTIAL PRESSURE CO2 23.5 mmHg (38.0-50.0); VENOUS PARTIAL PRESSURE O2 44.7 mmHg (30.0-50.0); VENOUS STANDARD HCO3 18.7 MMOL/L; VENOUS TOTAL CO2 16.3 MMOL/L (24.0-28.0)
[2023-04-26 16:13] LABS: BASO # 0.1 10^3/uL (0.0-0.2); BASO % 1.1 % (0.0-1.0); EOS % 0.5 % (0.0-3.0); HEMATOCRIT 32.2 % (36.0-47.0); HEMOGLOBIN 10.9 g/dl (12.0-15.5); LYMPH # 1.4 10^3/uL (1.5-5.0); LYMPH % 17.9 % (24.0-44.0); MEAN CORPUSCULAR HEMOGLOBIN 28.1 pg (27.0-33.0); MEAN CORPUSCULAR HGB CONC 33.9 g/dl (32.0-36.5); MONO # 0.5 10^3/uL (0.0-0.8); MONO % 6.6 % (2.0-8.0); NEUTROPHILS # 5.9 10^3/uL (1.5-8.5); NEUTROPHILS % 73.5 % (36.0-66.0); PLATELET COUNT, AUTOMATED 334 10^3/uL (150-450); RED BLOOD COUNT 3.88 10^6/uL (4.00-5.40)
[2023-04-26 16:33] LABS: HEMOGLOBIN A1c 8.4 % (4.0-6.0)
[2023-04-26 16:43] LABS: LIPASE 39 U/L (12-53)
[2023-04-26 16:44] LABS: OSMOLALITY SERUM 309 MOSM/KG (275-295)
[2023-04-26 16:45] LABS: ACETONE/KETONE 4.05 MMOL/L (0.02-0.27); ALBUMIN 4.1 G/DL (3.2-5.2); ALKALINE PHOSPHATASE 80 U/L (46-116); ALT/SGPT 25 U/L (7.0-40); AST/SGOT 32 U/L (<34); BILIRUBIN,DIRECT 0.2 MG/DL (<0.4); BILIRUBIN,TOTAL 0.7 MG/DL (0.3-1.2); BLOOD UREA NITROGEN 26 MG/DL (9-23); CALCIUM LEVEL 10.4 MG/DL (8.5-10.1); CARBON DIOXIDE LEVEL 15 MMOL/L (20-31); CHLORIDE LEVEL 100 MMOL/L (98-107); CREATININE FOR GFR 1.19 MG/DL (0.55-1.30); GLOMERULAR FILTRATION RATE > 60.0 (>51); GLUCOSE, FASTING 351 MG/DL (60-100); MAGNESIUM LEVEL 1.5 MG/DL (1.8-2.4); POTASSIUM SERUM 4.7 MMOL/L (3.5-5.1); SODIUM LEVEL 132 MMOL/L (136-145); TOTAL PROTEIN 7.8 G/DL (5.7-8.2)
[2023-04-26 16:46] LABS: RSV AMPLIFICATION POSITIVE (NEGATIVE)
[2023-04-26] MEDS ORDERED: PROMETHAZINE 25MG/ML 1ML VIAL IV ONE (17:05)
[2023-04-26] MEDS ORDERED: HumuLIN R (REGULAR) INSULIN (NovoLIN R) **100U/ML** PER UNIT IV ONE (17:05)
[2023-04-26] MEDS ORDERED: INSULIN REGULAR IN 0.9 % NACL 100 UNIT in IV 1 EA IV SCH ×4 (17:05→18:05)
[2023-04-26] MEDS ORDERED: INSULIN IV RATE CHANGE DOCUMENTATION ML/HR XX SCH (18:05)
[2023-04-26] MEDS ORDERED: med rec comment (18:53)
[2023-04-26] MEDS ORDERED: HOME MED LIST COMPLETE! XX SCH (18:55)
[2023-04-26] MEDS ORDERED: MAG SULF 1GM/100ML (MAG RUN) 1 GM in IV 1 EA IV ONE (19:00)
[2023-04-26] MEDS: INSULIN IV RATE CHANGE DOCUMENTATION ML/HR XX SCH ×2 (19:13→19:52)
[2023-04-26 19:42] VITALS: BP 161/87; TEMP 98.8; O2SAT 99
[2023-04-26] MEDS ORDERED: ALBUTEROL SULFATE 2.5MG/0.5ML INH NEB SOLN NEB PRN (20:00)
[2023-04-26] MEDS: KCL 20MEQ IN D5/NS 1000ML 1,000 ML IV SCH (20:19)
[2023-04-26] MEDS: ENOXAPARIN 40MG/0.4ML SYRINGE (J1650 PER 10MG) SC SCH (20:20)
[2023-04-26 21:11] LABS: BLOOD UREA NITROGEN 25 MG/DL (9-23); CALCIUM LEVEL 9.1 MG/DL (8.5-10.1); CARBON DIOXIDE LEVEL 22 MMOL/L (20-31); CHLORIDE LEVEL 110 MMOL/L (98-107); CREATININE FOR GFR 1.06 MG/DL (0.55-1.30); GLOMERULAR FILTRATION RATE > 60.0 (>51); GLUCOSE, FASTING 64 MG/DL (60-100); PHOSPHORUS LEVEL 3.2 MG/DL (2.5-4.9); POTASSIUM SERUM 3.8 MMOL/L (3.5-5.1); SODIUM LEVEL 141 MMOL/L (136-145)
[2023-04-26] MEDS ORDERED: LEVEMIR (INSULIN DETEMIR) 1 UNITS/0.01ML SC SCH (21:45)
[2023-04-26] MEDS ORDERED: ACETAMINOPHEN 325 MG TAB PO PRN (21:45)
[2023-04-26] MEDS ORDERED: GLUCOSE 4GM CHEW TABLET PO PRN (21:45)
[2023-04-26] MEDS ORDERED: DEXTROSE 50% 50ML SYRINGE IV PRN (21:45)
[2023-04-26] MEDS ORDERED: GLUCAGON INJ 1MG VIAL SC PRN (21:45)
[2023-04-26] MEDS ORDERED: ONDANSETRON 4MG 2ML VIAL IV PRN (22:05)
[2023-04-26] MEDS ORDERED: METOCLOPRAMIDE INJ 10MG/2ML VIAL IV PRN (22:05)
[2023-04-26] MEDS: MORPHINE 2 MG/ML 1ML VIAL IV PRN (22:26)
[2023-04-27] VITALS (7 sets, daily range): BP systolic 109–155; BP diastolic 69–90; TEMP 97.8–98.6; O2SAT 100
[2023-04-27] MEDS: KCL 20MEQ IN D5/NS 1000ML 1,000 ML IV SCH ×2 (04:44→12:00)
[2023-04-27] MEDS: MORPHINE 2 MG/ML 1ML VIAL IV PRN ×2 (04:47→21:43)
[2023-04-27 05:52] LABS: MAGNESIUM LEVEL 1.7 MG/DL (1.8-2.4); PHOSPHORUS LEVEL 4.3 MG/DL (2.5-4.9)
[2023-04-27 06:18] LABS: BLOOD UREA NITROGEN 25 MG/DL (9-23); CALCIUM LEVEL 8.9 MG/DL (8.5-10.1); CARBON DIOXIDE LEVEL 21 MMOL/L (20-31); CHLORIDE LEVEL 109 MMOL/L (98-107); CREATININE FOR GFR 1.04 MG/DL (0.55-1.30); GLOMERULAR FILTRATION RATE > 60.0 (>51); GLUCOSE, FASTING 120 MG/DL (60-100); POTASSIUM SERUM 4.6 MMOL/L (3.5-5.1); SODIUM LEVEL 137 MMOL/L (136-145)
[2023-04-27] MEDS: INSULIN LISPRO (NovoLOG) PER UNIT SC SCH ×3 (07:53→17:50)
[2023-04-27] MEDS ORDERED: MAG SULF 1GM/100ML (MAG RUN) 1 GM in IV 1 EA IV ONE (08:00)
[2023-04-27] MEDS ORDERED: PANTOPRAZOLE 40MG VIAL IV SCH (09:00)
[2023-04-27] MEDS: LEVEMIR (INSULIN DETEMIR) 1 UNITS/0.01ML SC SCH ×2 (13:08→21:42)
[2023-04-27] MEDS ORDERED: INSULIN LISPRO (NovoLOG) PER UNIT SC SCH (21:00)
[2023-04-27] MEDS: ENOXAPARIN 40MG/0.4ML SYRINGE (J1650 PER 10MG) SC SCH (21:42)
[2023-04-28 06:22] LABS: BASO # 0.1 10^3/uL (0.0-0.2); BASO % 0.9 % (0.0-1.0); EOS # 0.2 10^3/uL (0.0-0.5); EOS % 2.9 % (0.0-3.0); HEMATOCRIT 28.8 % (36.0-47.0); HEMOGLOBIN 9.5 g/dl (12.0-15.5); LYMPH # 2.3 10^3/uL (1.5-5.0); LYMPH % 41.6 % (24.0-44.0); MEAN CORPUSCULAR HEMOGLOBIN 28.6 pg (27.0-33.0); MEAN CORPUSCULAR VOLUME 86.7 fl (80.0-96.0); MONO # 0.5 10^3/uL (0.0-0.8); MONO % 9.2 % (2.0-8.0); NEUTROPHILS # 2.5 10^3/uL (1.5-8.5); NEUTROPHILS % 45.2 % (36.0-66.0); PLATELET COUNT, AUTOMATED 256 10^3/uL (150-450); RED BLOOD COUNT 3.32 10^6/uL (4.00-5.40); WHITE BLOOD COUNT 5.4 10^3/uL (4.0-10.0)
[2023-04-28 06:49] LABS: BLOOD UREA NITROGEN 17 MG/DL (9-23); CALCIUM LEVEL 8.8 MG/DL (8.5-10.1); CARBON DIOXIDE LEVEL 21 MMOL/L (20-31); CHLORIDE LEVEL 109 MMOL/L (98-107); CREATININE FOR GFR 1.12 MG/DL (0.55-1.30); GLOMERULAR FILTRATION RATE > 60.0 (>51); GLUCOSE, FASTING 58 MG/DL (60-100); SODIUM LEVEL 138 MMOL/L (136-145)
[2023-04-28 07:00] VITALS: BP 124/71; TEMP 98.6; O2SAT 100
[2023-04-28] MEDS: INSULIN LISPRO (NovoLOG) PER UNIT SC SCH (07:30)
[2023-04-28] MEDS ORDERED: LEVEMIR (INSULIN DETEMIR) 1 UNITS/0.01ML SC SCH (09:00)
[2023-04-28] MEDS ORDERED: PANTOPRAZOLE 40MG TAB (PROTONIX) PO SCH (09:00)
== END 2023-04-28 11:40 | disposition home or self-care (01) | DRG 420 ==
LOC: EDBD 15:42 → M ED 15:42 → M ED INP 17:59 → ENRESERV 18:40 → M ICU 19:30 → M MS5PR 04-27 18:40
PROVIDERS: ADMIT Internal Medicine Pulmonary Disease; ATTEND Internal Medicine
DX: E10.10 Type 1 diabetes mellitus with ketoacidosis without coma (principal); K31.84 Gastroparesis; B97.4 Respiratory syncytial virus as the cause of diseases classified elsewhere; E11.43 Type 2 diabetes mellitus with diabetic autonomic (poly)neuropathy; E83.42 Hypomagnesemia; J06.9 Acute upper respiratory infection, unspecified; F12.188 Cannabis abuse with other cannabis-induced disorder; R11.10 Vomiting, unspecified; Z79.4 Long term (current) use of insulin; Z79.899 Other long term (current) drug therapy

== ENCOUNTER 2023-05-15 21:27 | Inpatient (IN) | payer MEDICAID, OTHER ==
[~2023-05-15] VITALS: Ht 170.2 cm; Wt 63.2 kg
[~2023-05-15 21:27] MED LIST changes: +med rec comment
[2023-05-15 22:07] LABS: VENOUS BASE EXCESS -9.4 (-2.0-2.0); VENOUS HCO3 15.2 MMOL/L (23.0-27.0); VENOUS O2 SATURATION 99.3 % (60.0-80.0); VENOUS PARTIAL PRESSURE CO2 29.5 mmHg (38.0-50.0); VENOUS PARTIAL PRESSURE O2 188.3 mmHg (30.0-50.0); VENOUS TOTAL CO2 16.1 MMOL/L (24.0-28.0)
[2023-05-15] MEDS: MORPHINE 2 MG/ML 1ML VIAL IV ONE (22:40)
[2023-05-15] MEDS: METOCLOPRAMIDE INJ 10MG/2ML VIAL IV ONE (22:40)
[2023-05-15] MEDS: NS 1,000 ML IV ONE ×2 (22:41→23:38)
[2023-05-15 22:47] LABS: RSV AMPLIFICATION POSITIVE (NEGATIVE)
[2023-05-15 22:51] LABS: BASO % 0.4 % (0.0-1.0); EOS % 0.2 % (0.0-3.0); HEMATOCRIT 29.9 % (36.0-47.0); HEMOGLOBIN 10.2 g/dl (12.0-15.5); LYMPH # 1.5 10^3/uL (1.5-5.0); LYMPH % 26.9 % (24.0-44.0); MEAN CORPUSCULAR HEMOGLOBIN 29.1 pg (27.0-33.0); MEAN CORPUSCULAR HGB CONC 34.1 g/dl (32.0-36.5); MEAN CORPUSCULAR VOLUME 85.2 fl (80.0-96.0); MONO # 0.4 10^3/uL (0.0-0.8); MONO % 7.9 % (2.0-8.0); NEUTROPHILS # 3.5 10^3/uL (1.5-8.5); NEUTROPHILS % 64.4 % (36.0-66.0); PLATELET COUNT, AUTOMATED 219 10^3/uL (150-450); RED BLOOD COUNT 3.51 10^6/uL (4.00-5.40); WHITE BLOOD COUNT 5.4 10^3/uL (4.0-10.0)
[2023-05-15] MEDS ORDERED: ISOVUE-370 76% 100ML VIAL As Ordered ONE (22:57)
[2023-05-15 23:01] LABS: LIPASE 45 U/L (12-53)
[2023-05-15 23:03] LABS: CK-MB VALUE MASS < 1.0 NG/ML (<3.6)
[2023-05-15] MEDS: OSELTAMIVIR PHOSPHATE 75 MG CAP (TAMIFLU) PO ONE (23:39)
[2023-05-15] MEDS: INSULIN LISPRO (NovoLOG) PER UNIT SC ONE (23:41)
[2023-05-16 00:13] LABS: ALBUMIN 3.8 G/DL (3.2-5.2); ALKALINE PHOSPHATASE 71 U/L (46-116); ALT/SGPT 19 U/L (7.0-40); AST/SGOT 28 U/L (<34); BILIRUBIN,DIRECT 0.1 MG/DL (<0.4); BILIRUBIN,TOTAL 0.3 MG/DL (0.3-1.2); BLOOD UREA NITROGEN 27 MG/DL (9-23); CALCIUM LEVEL 8.6 MG/DL (8.5-10.1); CARBON DIOXIDE LEVEL 14 MMOL/L (20-31); CHLORIDE LEVEL 101 MMOL/L (98-107); CPK CREATINE PHOSPHOKINASE 70 U/L (34-145); CREATININE FOR GFR 1.33 MG/DL (0.55-1.30); GLOMERULAR FILTRATION RATE 54.5 (>51); GLUCOSE, FASTING 481 MG/DL (60-100); MAGNESIUM LEVEL 1.5 MG/DL (1.8-2.4); MB/CK RELATIVE INDEX 1.42 (< OR =4); POTASSIUM SERUM 5.4 MMOL/L (3.5-5.1); SODIUM LEVEL 128 MMOL/L (136-145)
[2023-05-16 00:28] LABS: HEMOGLOBIN A1c 8.9 % (4.0-6.0)
[2023-05-16 00:40] LABS: ACETONE/KETONE 3.35 MMOL/L (0.02-0.27)
[2023-05-16] MEDS: HumuLIN R (REGULAR) INSULIN (NovoLIN R) **100U/ML** PER UNIT IV ONE (01:24)
[2023-05-16] MEDS: HALOPERIDOL 5MG/ML 1ML VIAL IV ONE (02:16)
[2023-05-16] MEDS ORDERED: OSEL75CA PO (06:48)
[2023-05-16] MEDS ORDERED: MED REC IN PROGRESS XX SCH (08:45)
[2023-05-16 08:51] LABS: BLOOD UREA NITROGEN 15 MG/DL (9-23); CARBON DIOXIDE LEVEL 15 MMOL/L (20-31); CHLORIDE LEVEL 97 MMOL/L (98-107); CREATININE FOR GFR 1.15 MG/DL (0.55-1.30); GLOMERULAR FILTRATION RATE > 60.0 (>51); GLUCOSE, FASTING 362 MG/DL (60-100); POTASSIUM SERUM 4.7 MMOL/L (3.5-5.1); SODIUM LEVEL 126 MMOL/L (136-145)
[2023-05-16] MEDS ORDERED: GLUCOSE 4GM CHEW TABLET PO PRN (09:25)
[2023-05-16] MEDS ORDERED: GLUCAGON INJ 1MG VIAL SC PRN (09:25)
[2023-05-16] MEDS ORDERED: MOM 30ML SUSPENSION UDC PO PRN (09:25)
[2023-05-16] MEDS ORDERED: ACETAMINOPHEN TAB 650MG DOSE (2X325MG) PO PRN (09:25)
[2023-05-16] MEDS: HumuLIN R (REGULAR) INSULIN (NovoLIN R) **100U/ML** PER UNIT IV STA (09:47)
[2023-05-16] MEDS: METOCLOPRAMIDE INJ 10MG/2ML VIAL IV SCH (09:47)
[2023-05-16] MEDS: LR 1,000 ML IV SCH (09:48)
[2023-05-16 10:16] LABS: ALBUMIN 4.1 G/DL (3.2-5.2); ALKALINE PHOSPHATASE 67 U/L (46-116); ALT/SGPT 15 U/L (7.0-40); AST/SGOT 23 U/L (<34); BILIRUBIN,DIRECT 0.1 MG/DL (<0.4); BILIRUBIN,TOTAL 0.3 MG/DL (0.3-1.2); PHOSPHORUS LEVEL 4.4 MG/DL (2.5-4.9); TOTAL PROTEIN 7.3 G/DL (5.7-8.2)
[2023-05-16 10:16] LABS: VENOUS BASE EXCESS -12.2 (-2.0-2.0); VENOUS HCO3 10.5 MMOL/L (23.0-27.0); VENOUS O2 SATURATION 99.3 % (60.0-80.0); VENOUS PARTIAL PRESSURE CO2 17.6 mmHg (38.0-50.0); VENOUS PARTIAL PRESSURE O2 220.8 mmHg (30.0-50.0); VENOUS PH 7.394 UNITS (7.330-7.430); VENOUS STANDARD HCO3 14.9 MMOL/L; VENOUS TOTAL CO2 11.1 MMOL/L (24.0-28.0)
[2023-05-16 10:28] LABS: PROCALCITONIN 1.87 ng/ml
[2023-05-16 10:32] LABS: INR 1.06; PROTHROMBIN TIME 13.5 SECONDS (12.5-14.5)
[2023-05-16 10:33] LABS: PARTIAL THROMBOPLASTIN TIME 26.3 SECONDS (24.8-34.2)
[2023-05-16] MEDS: PIPERACILLIN/TAZOBACTAM SOD 3.375 GM in D5W MINI-BAG PLUS 50 ML IV SCH (10:37)
[2023-05-16] MEDS ORDERED: IBUP80TA PO (11:05)
[2023-05-16] MEDS ORDERED: INSU100I48 SC (11:05)
[2023-05-16] MEDS ORDERED: ERYT1CAP2 PO (11:05)
[2023-05-16] MEDS ORDERED: ACET1TAB55 PO (11:05)
[2023-05-16] MEDS ORDERED: HOME MED LIST COMPLETE! XX SCH (11:15)
[2023-05-16] MEDS: INSULIN LISPRO (NovoLOG) PER UNIT SC SCH ×3 (12:00→17:54)
[2023-05-16] MEDS ORDERED: INSULIN LISPRO (NovoLOG) PER UNIT SC SCH (13:00)
[2023-05-16 14:18] LABS: C REACTIVE PROTEIN QUANTITATIV 2.3 MG/DL (<1.0)
[2023-05-16 14:20] LABS: CALCIUM LEVEL 8.6 MG/DL (8.5-10.1); CREATININE FOR GFR 1.32 MG/DL (0.55-1.30); GLOMERULAR FILTRATION RATE 54.9 (>51); POTASSIUM SERUM 4.1 MMOL/L (3.5-5.1)
[2023-05-16 14:36] VITALS: BP 146/95; TEMP 97.8; O2SAT 100
[2023-05-16] MEDS ORDERED: D5W/LR 1,000 ML IV SCH (15:10)
[2023-05-16] MEDS: LEVEMIR (INSULIN DETEMIR) 1 UNITS/0.01ML SC ONE (15:10)
[2023-05-16] MEDS: D5W/LR 1,000 ML IV SCH (15:24)
[2023-05-16] MEDS: HEPARIN SOD (PORCINE) 5000UNITS/ML 1ML VIAL/SYRINGE SC SCH (15:25)
[2023-05-16] MEDS: DEXTROSE 50% 50ML SYRINGE IV PRN (15:35)
[2023-05-16 15:39] VITALS: BP 151/88; TEMP 97.3; O2SAT 99
[2023-05-16] MEDS: LEVEMIR (INSULIN DETEMIR) 1 UNITS/0.01ML SC SCH (19:25)
[2023-05-16 20:00] VITALS: BP 140/95; TEMP 98.1; O2SAT 100
[2023-05-16] MEDS: PANTOPRAZOLE 40MG VIAL IV SCH (21:00)
[2023-05-16] MEDS: D5W/0.9% SODIUM CHLORIDE 1,000 ML IV SCH (23:33)
[2023-05-17] VITALS: TEMP 98.2; O2SAT 97
[2023-05-17 04:00] VITALS: BP 154/95; TEMP 97.6; O2SAT 99
[2023-05-17] MEDS: traMADol 50 MG TAB PO ONE (06:29)
[2023-05-17 07:17] LABS: HEMATOCRIT 29.8 % (36.0-47.0); HEMOGLOBIN 10.2 g/dl (12.0-15.5); MEAN CORPUSCULAR HEMOGLOBIN 28.5 pg (27.0-33.0); MEAN CORPUSCULAR HGB CONC 34.2 g/dl (32.0-36.5); MEAN CORPUSCULAR VOLUME 83.2 fl (80.0-96.0); PLATELET COUNT, AUTOMATED 227 10^3/uL (150-450); RED BLOOD COUNT 3.58 10^6/uL (4.00-5.40); WHITE BLOOD COUNT 2.9 10^3/uL (4.0-10.0)
[2023-05-17 07:22] VITALS: BP 152/88; TEMP 97.8; O2SAT 99
[2023-05-17 07:48] LABS: ALBUMIN 3.3 G/DL (3.2-5.2); BLOOD UREA NITROGEN 15 MG/DL (9-23); CALCIUM LEVEL 8.6 MG/DL (8.5-10.1); CARBON DIOXIDE LEVEL 22 MMOL/L (20-31); CHLORIDE LEVEL 105 MMOL/L (98-107); CREATININE FOR GFR 1.22 MG/DL (0.55-1.30); GLOMERULAR FILTRATION RATE > 60.0 (>51); GLUCOSE, FASTING 156 MG/DL (60-100); MAGNESIUM LEVEL 1.5 MG/DL (1.8-2.4); PHOSPHORUS LEVEL 3.5 MG/DL (2.5-4.9); SODIUM LEVEL 134 MMOL/L (136-145)
[2023-05-17 09:08] LABS: ACETONE/KETONE 0.21 MMOL/L (0.02-0.27)
[2023-05-17] MEDS: LEVEMIR (INSULIN DETEMIR) 1 UNITS/0.01ML SC SCH (09:48)
[2023-05-17 11:40] VITALS: BP 134/90; TEMP 97.2; O2SAT 99
[2023-05-17] MEDS: MAG SULF 1GM/100ML (MAG RUN) 1 GM in IV 1 EA IV SCH (11:43)
[2023-05-17] MEDS ORDERED: METR-265 PO (12:38)
[2023-05-17] MEDS ORDERED: CIPR-249 PO (12:38)
== END 2023-05-17 15:16 | disposition home or self-care (01) | DRG 420 ==
LOC: M ED 21:27 → M ED INP 05-16 09:23 → M PCU 05-16 14:25
PROVIDERS: ADMIT Student in an Organized Health Care Education/Training Program; ATTEND Student in an Organized Health Care Education/Training Program
DX: E10.65 Type 1 diabetes mellitus with hyperglycemia (principal); K31.84 Gastroparesis; J12.1 Respiratory syncytial virus pneumonia; N17.9 Acute kidney failure, unspecified; I48.0 Paroxysmal atrial fibrillation; E10.43 Type 1 diabetes mellitus with diabetic autonomic (poly)neuropathy; N18.30 Chronic kidney disease, stage 3 unspecified; E10.22 Type 1 diabetes mellitus with diabetic chronic kidney disease; K76.0 Fatty (change of) liver, not elsewhere classified; F12.188 Cannabis abuse with other cannabis-induced disorder; R11.2 Nausea with vomiting, unspecified; K21.9 Gastro-esophageal reflux disease without esophagitis; K44.9 Diaphragmatic hernia without obstruction or gangrene; E73.9 Lactose intolerance, unspecified; A09 Infectious gastroenteritis and colitis, unspecified; J10.01 Influenza due to other identified influenza virus with the same other identified influenza virus pneumonia; E87.1 Hypo-osmolality and hyponatremia; Z79.4 Long term (current) use of insulin; Z79.899 Other long term (current) drug therapy

== ENCOUNTER 2023-06-18 17:20 | Inpatient (IN) | payer MEDICAID, OTHER ==
[~2023-06-18] VITALS: Ht 170.2 cm; Wt 62.5 kg
[~2023-06-18 17:20] MED LIST changes: +CIPR-249 PO; +ERYT1CAP2 PO; +METR-265 PO; +OSEL75CA PO
[2023-06-18 17:51] LABS: VENOUS BASE EXCESS -2.6 (-2.0-2.0); VENOUS HCO3 19.1 MMOL/L (23.0-27.0); VENOUS O2 SATURATION 79.3 % (60.0-80.0); VENOUS PARTIAL PRESSURE CO2 25.6 mmHg (38.0-50.0); VENOUS STANDARD HCO3 21.9 MMOL/L; VENOUS TOTAL CO2 19.9 MMOL/L (24.0-28.0)
[2023-06-18 18:01] LABS: BASO % 0.4 % (0.0-1.0); EOS % 0.1 % (0.0-3.0); HEMATOCRIT 36.2 % (36.0-47.0); HEMOGLOBIN 12.6 g/dl (12.0-15.5); LYMPH # 1.3 10^3/uL (1.5-5.0); LYMPH % 13.3 % (24.0-44.0); MEAN CORPUSCULAR HEMOGLOBIN 28.6 pg (27.0-33.0); MEAN CORPUSCULAR HGB CONC 34.8 g/dl (32.0-36.5); MEAN CORPUSCULAR VOLUME 82.3 fl (80.0-96.0); MONO # 0.4 10^3/uL (0.0-0.8); MONO % 4.2 % (2.0-8.0); NEUTROPHILS # 7.7 10^3/uL (1.5-8.5); NEUTROPHILS % 81.8 % (36.0-66.0); PLATELET COUNT, AUTOMATED 273 10^3/uL (150-450); WHITE BLOOD COUNT 9.4 10^3/uL (4.0-10.0)
[2023-06-18] MEDS: MORPHINE 4 MG/ML 1ML VIAL IV ONE (18:02)
[2023-06-18] MEDS: NS 1,000 ML IV ONE (18:02)
[2023-06-18] MEDS: METOCLOPRAMIDE INJ 10MG/2ML VIAL IV ONE (18:02)
[2023-06-18 18:19] LABS: LIPASE 34 U/L (12-53)
[2023-06-18 18:21] LABS: ALBUMIN 4.9 G/DL (3.2-5.2); ALKALINE PHOSPHATASE 89 U/L (46-116); ALT/SGPT 21 U/L (7.0-40); AST/SGOT 27 U/L (<34); BILIRUBIN,DIRECT 0.4 MG/DL (<0.4); BILIRUBIN,TOTAL 1.1 MG/DL (0.3-1.2); BLOOD UREA NITROGEN 71 MG/DL (9-23); CALCIUM LEVEL 9.3 MG/DL (8.5-10.1); CARBON DIOXIDE LEVEL 19 MMOL/L (20-31); CHLORIDE LEVEL 89 MMOL/L (98-107); CREATININE FOR GFR 2.02 MG/DL (0.55-1.30); GLOMERULAR FILTRATION RATE 33.6 (>51); GLUCOSE, FASTING 364 MG/DL (60-100); MAGNESIUM LEVEL 1.9 MG/DL (1.8-2.4); POTASSIUM SERUM 4.1 MMOL/L (3.5-5.1); SODIUM LEVEL 128 MMOL/L (136-145); TOTAL PROTEIN 8.1 G/DL (5.7-8.2)
[2023-06-18 18:26] LABS: ACETONE/KETONE > 4.50 MMOL/L (0.02-0.27)
[2023-06-18] MEDS ORDERED: INSULIN IV RATE CHANGE DOCUMENTATION ML/HR XX SCH (18:35)
[2023-06-18] MEDS: INSULIN REGULAR IN 0.9 % NACL 100 UNIT in IV 1 EA IV SCH ×2 (18:49→21:35)
[2023-06-18] MEDS: HumuLIN R (REGULAR) INSULIN (NovoLIN R) **100U/ML** PER UNIT IV ONE (18:50)
[2023-06-18 19:40] LABS: HEMOGLOBIN A1c 8.8 % (4.0-6.0)
[2023-06-18] MEDS ORDERED: CVS-161 PO (20:27)
[2023-06-18] MEDS ORDERED: HOME MED LIST COMPLETE! XX SCH ×2 (20:30→21:10)
[2023-06-18 20:38] LABS: VENOUS BASE EXCESS -4.9 (-2.0-2.0); VENOUS HCO3 20.5 MMOL/L (23.0-27.0); VENOUS O2 SATURATION 66.9 % (60.0-80.0); VENOUS PARTIAL PRESSURE CO2 38.9 mmHg (38.0-50.0); VENOUS PARTIAL PRESSURE O2 39.6 mmHg (30.0-50.0); VENOUS PH 7.339 UNITS (7.330-7.430); VENOUS STANDARD HCO3 19.9 MMOL/L; VENOUS TOTAL CO2 21.7 MMOL/L (24.0-28.0)
[2023-06-18 21:12] LABS: CALCIUM LEVEL 8.3 MG/DL (8.5-10.1); CREATININE FOR GFR 2.07 MG/DL (0.55-1.30); GLOMERULAR FILTRATION RATE 32.7 (>51); POTASSIUM SERUM 3.3 MMOL/L (3.5-5.1)
[2023-06-18] MEDS: KCL 20MEQ IN D5/0.45NS 1000ML 1,000 ML IV SCH (21:34)
[2023-06-18 21:37] LABS: RSV AMPLIFICATION NEGATIVE (NEGATIVE)
[2023-06-18] MEDS: HEPARIN SOD (PORCINE) 5000UNITS/ML 1ML VIAL/SYRINGE SC SCH (21:58)
[2023-06-18] MEDS: METOCLOPRAMIDE INJ 10MG/2ML VIAL IV SCH (21:58)
[2023-06-18 22:00] VITALS: BP 96/62; TEMP 99.5; O2SAT 96
[2023-06-18] MEDS: INSULIN IV RATE CHANGE DOCUMENTATION ML/HR XX SCH (22:00)
[2023-06-18] MEDS ORDERED: POTASSIUM CHLORIDE INJ 20 MEQ in LR 1,000 ML IV SCH (22:00)
[2023-06-18] MEDS: ONDANSETRON 4MG 2ML VIAL IV PRN (22:05)
[2023-06-18 22:25] LABS: VENOUS HCO3 25.8 MMOL/L (23.0-27.0); VENOUS O2 SATURATION 98.4 % (60.0-80.0); VENOUS PARTIAL PRESSURE O2 123.9 mmHg (30.0-50.0); VENOUS PH 7.407 UNITS (7.330-7.430); VENOUS STANDARD HCO3 25.4 MMOL/L; VENOUS TOTAL CO2 27.1 MMOL/L (24.0-28.0)
[2023-06-18 22:55] LABS: CALCIUM LEVEL 8.3 MG/DL (8.5-10.1); CREATININE FOR GFR 2.05 MG/DL (0.55-1.30); GLOMERULAR FILTRATION RATE 33.1 (>51); POTASSIUM SERUM 3.4 MMOL/L (3.5-5.1)
[2023-06-18 23:00] VITALS: BP 105/60; O2SAT 96
[2023-06-18] MEDS ORDERED: GLUCAGON INJ 1MG VIAL SC PRN (23:05)
[2023-06-18] MEDS ORDERED: GLUCOSE 4GM CHEW TABLET PO PRN (23:05)
[2023-06-18] MEDS: LEVEMIR (INSULIN DETEMIR) 1 UNITS/0.01ML SC SCH (23:40)
[2023-06-19] VITALS (7 sets, daily range): BP systolic 97–166; BP diastolic 63–93; TEMP 97.7–99; O2SAT 95–100
[2023-06-19 04:25] LABS: VENOUS BASE EXCESS 0.8 (-2.0-2.0); VENOUS HCO3 24.6 MMOL/L (23.0-27.0); VENOUS O2 SATURATION 98.9 % (60.0-80.0); VENOUS PARTIAL PRESSURE CO2 36.5 mmHg (38.0-50.0); VENOUS PARTIAL PRESSURE O2 149.8 mmHg (30.0-50.0); VENOUS PH 7.446 UNITS (7.330-7.430); VENOUS STANDARD HCO3 25.2 MMOL/L; VENOUS TOTAL CO2 25.7 MMOL/L (24.0-28.0)
[2023-06-19 05:01] LABS: ACETONE/KETONE 2.47 MMOL/L (0.02-0.27)
[2023-06-19 05:02] LABS: CALCIUM LEVEL 8.5 MG/DL (8.5-10.1); CREATININE FOR GFR 1.95 MG/DL (0.55-1.30); PHOSPHORUS LEVEL 4.9 MG/DL (2.5-4.9); POTASSIUM SERUM 4.2 MMOL/L (3.5-5.1)
[2023-06-19] MEDS: MORPHINE 2 MG/ML 1ML VIAL IV ONE (05:06)
[2023-06-19] MEDS: DEXTROSE 50% 50ML SYRINGE IV PRN (07:20)
[2023-06-19] MEDS: D5W/LR 1,000 ML IV SCH ×2 (07:20→18:54)
[2023-06-19] MEDS: INSULIN LISPRO (NovoLOG) PER UNIT SC SCH ×2 (07:28→20:28)
[2023-06-19 08:30] LABS: VENOUS BASE EXCESS -0.6 (-2.0-2.0); VENOUS HCO3 22.4 MMOL/L (23.0-27.0); VENOUS O2 SATURATION 99.1 % (60.0-80.0); VENOUS PARTIAL PRESSURE CO2 31.6 mmHg (38.0-50.0); VENOUS PARTIAL PRESSURE O2 249.7 mmHg (30.0-50.0); VENOUS PH 7.469 UNITS (7.330-7.430); VENOUS TOTAL CO2 23.4 MMOL/L (24.0-28.0)
[2023-06-19] MEDS: LEVEMIR (INSULIN DETEMIR) 1 UNITS/0.01ML SC SCH (09:00)
[2023-06-19] MEDS: PANTOPRAZOLE 40MG VIAL IV SCH (09:13)
[2023-06-19 09:18] LABS: CALCIUM LEVEL 8.5 MG/DL (8.5-10.1); CREATININE FOR GFR 1.95 MG/DL (0.55-1.30); POTASSIUM SERUM 3.5 MMOL/L (3.5-5.1)
[2023-06-19] MEDS: MORPHINE 2 MG/ML 1ML VIAL IV PRN (09:26)
[2023-06-19 12:12] LABS: VENOUS BASE EXCESS 4.3 (-2.0-2.0); VENOUS HCO3 26.1 MMOL/L (23.0-27.0); VENOUS O2 SATURATION 99.5 % (60.0-80.0); VENOUS PARTIAL PRESSURE O2 242.9 mmHg (30.0-50.0); VENOUS PH 7.558 UNITS (7.330-7.430); VENOUS STANDARD HCO3 28.4 MMOL/L; VENOUS TOTAL CO2 27.1 MMOL/L (24.0-28.0)
[2023-06-19 12:38] LABS: CALCIUM LEVEL 8.8 MG/DL (8.5-10.1); CREATININE FOR GFR 1.83 MG/DL (0.55-1.30); GLOMERULAR FILTRATION RATE 37.7 (>51); POTASSIUM SERUM 4.1 MMOL/L (3.5-5.1)
[2023-06-19] MEDS: METOCLOPRAMIDE INJ 10MG/2ML VIAL IV SCH (21:49)
[2023-06-20 06:05] VITALS: BP 136/90; TEMP 97.7; O2SAT 99
[2023-06-20 07:03] LABS: BASO % 0.9 % (0.0-1.0); EOS # 0.1 10^3/uL (0.0-0.5); EOS % 1.9 % (0.0-3.0); HEMATOCRIT 29.8 % (36.0-47.0); LYMPH # 1.8 10^3/uL (1.5-5.0); LYMPH % 37.9 % (24.0-44.0); MEAN CORPUSCULAR HEMOGLOBIN 28.9 pg (27.0-33.0); MEAN CORPUSCULAR HGB CONC 33.9 g/dl (32.0-36.5); MEAN CORPUSCULAR VOLUME 85.1 fl (80.0-96.0); MONO # 0.4 10^3/uL (0.0-0.8); MONO % 7.4 % (2.0-8.0); NEUTROPHILS # 2.4 10^3/uL (1.5-8.5); NEUTROPHILS % 51.9 % (36.0-66.0); PLATELET COUNT, AUTOMATED 206 10^3/uL (150-450); WHITE BLOOD COUNT 4.7 10^3/uL (4.0-10.0)
[2023-06-20 07:04] LABS: HEMOGLOBIN 10.1 g/dl (12.0-15.5)
[2023-06-20 07:09] LABS: CALCIUM LEVEL 9.1 MG/DL (8.5-10.1); CREATININE FOR GFR 1.46 MG/DL (0.55-1.30); GLOMERULAR FILTRATION RATE 48.9 (>51); POTASSIUM SERUM 3.9 MMOL/L (3.5-5.1)
[2023-06-20] MEDS: MORPHINE 2 MG/ML 1ML VIAL IV ONE (09:09)
[2023-06-20 14:00] VITALS: BP 135/89; TEMP 97.9; O2SAT 98
== END 2023-06-20 18:43 | disposition home or self-care (01) | DRG 420 ==
LOC: EDBD 17:20 → M ED 17:20 → M ED INP 20:04 → ENRESERV 21:00 → M ICU 21:48 → M MSPAV 06-19 14:24
PROVIDERS: ADMIT Internal Medicine Pulmonary Disease; ATTEND Internal Medicine
DX: E10.10 Type 1 diabetes mellitus with ketoacidosis without coma (principal); K31.84 Gastroparesis; N17.9 Acute kidney failure, unspecified; I48.0 Paroxysmal atrial fibrillation; E10.43 Type 1 diabetes mellitus with diabetic autonomic (poly)neuropathy; E10.22 Type 1 diabetes mellitus with diabetic chronic kidney disease; R11.2 Nausea with vomiting, unspecified; N18.30 Chronic kidney disease, stage 3 unspecified; E87.1 Hypo-osmolality and hyponatremia; F12.188 Cannabis abuse with other cannabis-induced disorder; Z87.891 Personal history of nicotine dependence; E10.65 Type 1 diabetes mellitus with hyperglycemia; Z79.4 Long term (current) use of insulin; Z79.899 Other long term (current) drug therapy

== ENCOUNTER 2023-06-22 11:44 | Inpatient (IN) | payer OTHER ==
[~2023-06-22] VITALS: Ht 170.2 cm; Wt 64.5 kg
[~2023-06-22 11:44] MED LIST changes: +CVS-161 PO
[2023-06-22 13:14] LABS: VENOUS HCO3 14.9 MMOL/L (23.0-27.0); VENOUS O2 SATURATION 99.4 % (60.0-80.0); VENOUS PARTIAL PRESSURE CO2 17.2 mmHg (38.0-50.0); VENOUS PARTIAL PRESSURE O2 237.4 mmHg (30.0-50.0); VENOUS PH 7.556 UNITS (7.330-7.430); VENOUS STANDARD HCO3 20.4 MMOL/L; VENOUS TOTAL CO2 15.4 MMOL/L (24.0-28.0)
[2023-06-22 13:23] LABS: BASO % 0.5 % (0.0-1.0); EOS % 0.5 % (0.0-3.0); HEMATOCRIT 33.9 % (36.0-47.0); HEMOGLOBIN 10.8 g/dl (12.0-15.5); LYMPH # 0.8 10^3/uL (1.5-5.0); LYMPH % 11.8 % (24.0-44.0); MEAN CORPUSCULAR HEMOGLOBIN 29.3 pg (27.0-33.0); MEAN CORPUSCULAR HGB CONC 31.9 g/dl (32.0-36.5); MEAN CORPUSCULAR VOLUME 91.9 fl (80.0-96.0); MONO # 0.3 10^3/uL (0.0-0.8); NEUTROPHILS # 5.4 10^3/uL (1.5-8.5); PLATELET COUNT, AUTOMATED 183 10^3/uL (150-450); RED BLOOD COUNT 3.69 10^6/uL (4.00-5.40); WHITE BLOOD COUNT 6.6 10^3/uL (4.0-10.0)
[2023-06-22 13:41] LABS: LIPASE 24 U/L (12-53)
[2023-06-22 13:43] LABS: ALBUMIN 3.9 G/DL (3.2-5.2); ALKALINE PHOSPHATASE 68 U/L (46-116); ALT/SGPT 23 U/L (7.0-40); AST/SGOT 29 U/L (<34); BILIRUBIN,DIRECT 0.4 MG/DL (<0.4); BILIRUBIN,TOTAL 1.1 MG/DL (0.3-1.2); MAGNESIUM LEVEL 1.2 MG/DL (1.8-2.4); PHOSPHORUS LEVEL 1.7 MG/DL (2.5-4.9); TOTAL PROTEIN 6.6 G/DL (5.7-8.2)
[2023-06-22 13:45] LABS: ACETONE/KETONE > 4.50 MMOL/L (0.02-0.27)
[2023-06-22] MEDS: NS 1,000 ML IV ONE (13:49)
[2023-06-22] MEDS: HALOPERIDOL 5MG/ML 1ML VIAL IV ONE (13:49)
[2023-06-22 14:00] LABS: HEMOGLOBIN A1c 8.5 % (4.0-6.0)
[2023-06-22 14:22] LABS: RSV AMPLIFICATION NEGATIVE (NEGATIVE)
[2023-06-22] MEDS: MAG SULF 1GM/100ML (MAG RUN) 1 GM in IV 1 EA IV ONE (14:25)
[2023-06-22 14:46] LABS: BLOOD UREA NITROGEN 25 MG/DL (9-23); CARBON DIOXIDE LEVEL 12 MMOL/L (20-31); CHLORIDE LEVEL 95 MMOL/L (98-107); CREATININE FOR GFR 1.33 MG/DL (0.55-1.30); GLOMERULAR FILTRATION RATE 54.5 (>51); GLUCOSE, FASTING 418 MG/DL (60-100); POTASSIUM SERUM 4.6 MMOL/L (3.5-5.1); SODIUM LEVEL 129 MMOL/L (136-145)
[2023-06-22] MEDS ORDERED: INSULIN IV RATE CHANGE DOCUMENTATION ML/HR XX SCH (14:55)
[2023-06-22] MEDS ORDERED: HOME MED LIST COMPLETE! XX SCH (15:10)
[2023-06-22 15:21] LABS: AMPHETAMINES LEVEL URINE NEGATIVE (NEGATIVE); BARBITURATES URINE NEGATIVE (NEGATIVE); COCAINE METABOLITE URINE NEGATIVE (NEGATIVE)
[2023-06-22 15:22] LABS: BENZODIAZEPINES URINE NEGATIVE (NEGATIVE); METHADONE URINE NEGATIVE (NEGATIVE); OPIATES URINE NEGATIVE (NEGATIVE); PHENCYCLIDINE URINE NEGATIVE (NEGATIVE)
[2023-06-22] MEDS: INSULIN REGULAR IN 0.9 % NACL 100 UNIT in IV 1 EA IV SCH (15:24)
[2023-06-22] MEDS ORDERED: INSULIN REGULAR IN 0.9 % NACL 100 UNIT in IV 1 EA IV SCH (15:25)
[2023-06-22 15:26] LABS: CANNABINOIDS URINE POSITIVE (NEGATIVE)
[2023-06-22] MEDS: INSULIN IV RATE CHANGE DOCUMENTATION ML/HR XX SCH (16:23)
[2023-06-22] MEDS: NS IV ONE (16:35)
[2023-06-22] MEDS: KETAMINE HCL IV ONE (16:35)
[2023-06-22 16:53] VITALS: BP 120/76; TEMP 100.7; O2SAT 100
[2023-06-22 17:00] VITALS: BP 121/75; O2SAT 100
[2023-06-22] MEDS: PANTOPRAZOLE 40MG VIAL IV SCH (17:05)
[2023-06-22] MEDS: MORPHINE 2 MG/ML 1ML VIAL IV PRN (17:07)
[2023-06-22] MEDS: METOCLOPRAMIDE INJ 10MG/2ML VIAL IV PRN (17:08)
[2023-06-22] MEDS: POTASSIUM CHLORIDE INJ 40 MEQ in D5W/LR 1,000 ML IV SCH (17:56)
[2023-06-22] MEDS: SODIUM PHOSPHATE INJ 30 MMOL in D5W 500 ML IV ONE (17:56)
[2023-06-22 19:06] LABS: CALCIUM LEVEL 7.8 MG/DL (8.5-10.1); CREATININE FOR GFR 1.27 MG/DL (0.55-1.30); GLOMERULAR FILTRATION RATE 57.5 (>51); MAGNESIUM LEVEL 1.4 MG/DL (1.8-2.4); PHOSPHORUS LEVEL 1.9 MG/DL (2.5-4.9); POTASSIUM SERUM 3.4 MMOL/L (3.5-5.1)
[2023-06-22] MEDS ORDERED: LEVEMIR (INSULIN DETEMIR) 1 UNITS/0.01ML SC STA (19:46)
[2023-06-22 20:08] VITALS: BP 144/84; TEMP 99.4; O2SAT 100
[2023-06-22] MEDS ORDERED: GLUCAGON INJ 1MG VIAL SC PRN (20:10)
[2023-06-22] MEDS ORDERED: GLUCOSE 4GM CHEW TABLET PO PRN (20:10)
[2023-06-22] MEDS: GABAPENTIN 100 MG CAP PO STA (20:38)
[2023-06-22] MEDS: LEVEMIR (INSULIN DETEMIR) 1 UNITS/0.01ML SC STA (20:57)
[2023-06-22] MEDS: MAG SULF 1GM/100ML (MAG RUN) 100 ML IV SCH (21:09)
[2023-06-22 22:50] LABS: BLOOD UREA NITROGEN 19 MG/DL (9-23); CALCIUM LEVEL 7.7 MG/DL (8.5-10.1); CARBON DIOXIDE LEVEL 20 MMOL/L (20-31); CHLORIDE LEVEL 103 MMOL/L (98-107); CREATININE FOR GFR 1.15 MG/DL (0.55-1.30); GLOMERULAR FILTRATION RATE > 60.0 (>51); MAGNESIUM LEVEL 1.4 MG/DL (1.8-2.4); PHOSPHORUS LEVEL 4.2 MG/DL (2.5-4.9); POTASSIUM SERUM 3.6 MMOL/L (3.5-5.1); SODIUM LEVEL 131 MMOL/L (136-145)
[2023-06-22 23:06] LABS: GLUCOSE, FASTING 160 MG/DL (60-100)
[2023-06-23] VITALS: BP 120/72; TEMP 97.7; O2SAT 100
[2023-06-23 04:00] VITALS: BP 153/85; TEMP 97.7; O2SAT 100
[2023-06-23 05:11] LABS: BLOOD UREA NITROGEN 16 MG/DL (9-23); CARBON DIOXIDE LEVEL 24 MMOL/L (20-31); CHLORIDE LEVEL 106 MMOL/L (98-107); CREATININE FOR GFR 1.17 MG/DL (0.55-1.30); GLOMERULAR FILTRATION RATE > 60.0 (>51); GLUCOSE, FASTING 55 MG/DL (60-100); PHOSPHORUS LEVEL 3.5 MG/DL (2.5-4.9); POTASSIUM SERUM 4.8 MMOL/L (3.5-5.1); SODIUM LEVEL 134 MMOL/L (136-145)
[2023-06-23] MEDS: DEXTROSE 50% 50ML SYRINGE IV PRN (05:20)
[2023-06-23 07:36] VITALS: BP 152/82; TEMP 98.9; O2SAT 100
[2023-06-23] MEDS: INSULIN LISPRO (NovoLOG) PER UNIT SC SCH (08:30)
[2023-06-23 09:44] LABS: BLOOD UREA NITROGEN 16 MG/DL (9-23); CALCIUM LEVEL 8.5 MG/DL (8.5-10.1); CARBON DIOXIDE LEVEL 22 MMOL/L (20-31); CHLORIDE LEVEL 106 MMOL/L (98-107); CREATININE FOR GFR 1.16 MG/DL (0.55-1.30); GLOMERULAR FILTRATION RATE > 60.0 (>51); GLUCOSE, FASTING 168 MG/DL (60-100); MAGNESIUM LEVEL 1.9 MG/DL (1.8-2.4); PHOSPHORUS LEVEL 2.9 MG/DL (2.5-4.9); POTASSIUM SERUM 4.2 MMOL/L (3.5-5.1); SODIUM LEVEL 134 MMOL/L (136-145)
[2023-06-23] MEDS: LEVEMIR (INSULIN DETEMIR) 1 UNITS/0.01ML SC SCH (10:23)
[2023-06-23] MEDS: ENOXAPARIN 40MG/0.4ML SYRINGE (J1650 PER 10MG) SC SCH (10:24)
[2023-06-23 11:11] VITALS: BP 116/74; TEMP 98.4; O2SAT 100
[2023-06-23] MEDS: D5W 1,000 ML IV SCH (11:15)
[2023-06-23 15:42] VITALS: BP 132/73; TEMP 97.6; O2SAT 99
[2023-06-23] MEDS ORDERED: REGL10TA6 PO (16:08)
== END 2023-06-23 17:57 | disposition home or self-care (01) | DRG 420 ==
LOC: EDBD 11:44 → M ED 11:44 → M ED INP 15:24 → M ICU 16:43
PROVIDERS: ADMIT Internal Medicine Pulmonary Disease; ATTEND Internal Medicine Nephrology
DX: E10.10 Type 1 diabetes mellitus with ketoacidosis without coma (principal); E87.3 Alkalosis; K31.84 Gastroparesis; N17.9 Acute kidney failure, unspecified; E83.42 Hypomagnesemia; E83.39 Other disorders of phosphorus metabolism; I48.0 Paroxysmal atrial fibrillation; E10.43 Type 1 diabetes mellitus with diabetic autonomic (poly)neuropathy; N18.30 Chronic kidney disease, stage 3 unspecified; E10.22 Type 1 diabetes mellitus with diabetic chronic kidney disease; K76.0 Fatty (change of) liver, not elsewhere classified; R10.9 Unspecified abdominal pain; N83.201 Unspecified ovarian cyst, right side; F12.188 Cannabis abuse with other cannabis-induced disorder; E73.9 Lactose intolerance, unspecified; R11.2 Nausea with vomiting, unspecified; K44.9 Diaphragmatic hernia without obstruction or gangrene; K21.9 Gastro-esophageal reflux disease without esophagitis; Z79.4 Long term (current) use of insulin; Z87.891 Personal history of nicotine dependence

== ENCOUNTER 2023-07-07 11:15 | Inpatient (IN) | payer OTHER, MEDICAID ==
[~2023-07-07] VITALS: Ht 170.2 cm; Wt 63.4 kg
[2023-07-07] MEDS: NS 1,000 ML IV ONE ×2 (13:19→15:55)
[2023-07-07] MEDS: MORPHINE 2 MG/ML 1ML VIAL IV ONE (13:33)
[2023-07-07] MEDS: METOCLOPRAMIDE INJ 10MG/2ML VIAL IV ONE (13:33)
[2023-07-07 14:01] LABS: VENOUS BASE EXCESS -12.2 (-2.0-2.0); VENOUS HCO3 12.8 MMOL/L (23.0-27.0); VENOUS O2 SATURATION 93.6 % (60.0-80.0); VENOUS PARTIAL PRESSURE CO2 27.3 mmHg (38.0-50.0); VENOUS PARTIAL PRESSURE O2 76.2 mmHg (30.0-50.0); VENOUS PH 7.288 UNITS (7.330-7.430); VENOUS STANDARD HCO3 14.9 MMOL/L; VENOUS TOTAL CO2 13.6 MMOL/L (24.0-28.0)
[2023-07-07 14:06] LABS: BASO # 0.1 10^3/uL (0.0-0.2); BASO % 0.6 % (0.0-1.0); HEMATOCRIT 35.1 % (36.0-47.0); HEMOGLOBIN 11.7 g/dl (12.0-15.5); LYMPH # 0.8 10^3/uL (1.5-5.0); LYMPH % 7.5 % (24.0-44.0); MEAN CORPUSCULAR HGB CONC 33.3 g/dl (32.0-36.5); MEAN CORPUSCULAR VOLUME 87.1 fl (80.0-96.0); MONO # 0.3 10^3/uL (0.0-0.8); NEUTROPHILS % 88.5 % (36.0-66.0); RED BLOOD COUNT 4.03 10^6/uL (4.00-5.40); WHITE BLOOD COUNT 10.2 10^3/uL (4.0-10.0)
[2023-07-07 14:34] LABS: HCG, SERUM QUALITATIVE NEGATIVE (NEGATIVE)
[2023-07-07 14:39] LABS: LIPASE 22 U/L (12-53)
[2023-07-07 14:42] LABS: HEMOGLOBIN A1c 8.5 % (4.0-6.0)
[2023-07-07 14:45] LABS: ACETONE/KETONE > 4.50 MMOL/L (0.02-0.27); ALBUMIN 3.9 G/DL (3.2-5.2); ALKALINE PHOSPHATASE 95 U/L (46-116); ALT/SGPT 23 U/L (7.0-40); AST/SGOT 27 U/L (<34); BILIRUBIN,DIRECT 0.3 MG/DL (<0.4); BILIRUBIN,TOTAL 0.6 MG/DL (0.3-1.2); BLOOD UREA NITROGEN 27 MG/DL (9-23); CARBON DIOXIDE LEVEL 13 MMOL/L (20-31); CHLORIDE LEVEL 96 MMOL/L (98-107); CREATININE FOR GFR 1.41 MG/DL (0.55-1.30); GLOMERULAR FILTRATION RATE 50.9 (>51); GLUCOSE, FASTING 477 MG/DL (60-100); SODIUM LEVEL 129 MMOL/L (136-145); TOTAL PROTEIN 7.3 G/DL (5.7-8.2)
[2023-07-07] MEDS ORDERED: ISOVUE-370 76% 100ML VIAL As Ordered ONE (14:49)
[2023-07-07 15:04] LABS: MAGNESIUM LEVEL 1.9 MG/DL (1.8-2.4); PHOSPHORUS LEVEL 3.9 MG/DL (2.5-4.9)
[2023-07-07] MEDS ORDERED: INSULIN IV RATE CHANGE DOCUMENTATION ML/HR XX SCH (15:05)
[2023-07-07] MEDS: NS 1,000 ML IV SCH (15:22)
[2023-07-07] MEDS ORDERED: INSULIN REGULAR IN 0.9 % NACL 100 UNIT in IV 1 EA IV SCH (15:55)
[2023-07-07] MEDS ORDERED: MORPHINE 2 MG/ML 1ML VIAL IV PRN (15:55)
[2023-07-07] MEDS: INSULIN REGULAR IN 0.9 % NACL 100 UNIT in IV 1 EA IV SCH (16:05)
[2023-07-07] MEDS: HumuLIN R (REGULAR) INSULIN (NovoLIN R) **100U/ML** PER UNIT IV ONE (16:05)
[2023-07-07 17:45] VITALS: BP 141/80; TEMP 98; O2SAT 99
[2023-07-07] MEDS: INSULIN IV RATE CHANGE DOCUMENTATION ML/HR XX SCH (17:57)
[2023-07-07] MEDS: MORPHINE 2 MG/ML 1ML VIAL IV PRN (18:29)
[2023-07-07 18:58] VITALS: BP 111/74; O2SAT 99
[2023-07-07 19:00] VITALS: BP 112/75; O2SAT 99
[2023-07-07 19:03] LABS: VENOUS BASE EXCESS -12.7 (-2.0-2.0); VENOUS HCO3 13.6 MMOL/L (23.0-27.0); VENOUS O2 SATURATION 84.5 % (60.0-80.0); VENOUS PARTIAL PRESSURE CO2 32.6 mmHg (38.0-50.0); VENOUS PARTIAL PRESSURE O2 56.5 mmHg (30.0-50.0); VENOUS PH 7.238 UNITS (7.330-7.430); VENOUS STANDARD HCO3 14.3 MMOL/L; VENOUS TOTAL CO2 14.6 MMOL/L (24.0-28.0)
[2023-07-07 19:10] LABS: BASO % 0.2 % (0.0-1.0); EOS % 0.1 % (0.0-3.0); HEMATOCRIT 28.1 % (36.0-47.0); LYMPH % 9.4 % (24.0-44.0); MEAN CORPUSCULAR HEMOGLOBIN 28.3 pg (27.0-33.0); MEAN CORPUSCULAR HGB CONC 32.4 g/dl (32.0-36.5); MEAN CORPUSCULAR VOLUME 87.5 fl (80.0-96.0); MONO # 0.3 10^3/uL (0.0-0.8); MONO % 2.9 % (2.0-8.0); NEUTROPHILS # 9.1 10^3/uL (1.5-8.5); NEUTROPHILS % 87.1 % (36.0-66.0); RED BLOOD COUNT 3.21 10^6/uL (4.00-5.40); WHITE BLOOD COUNT 10.4 10^3/uL (4.0-10.0)
[2023-07-07 19:35] LABS: LIPASE 28 U/L (12-53)
[2023-07-07 19:39] LABS: CALCIUM LEVEL 8.5 MG/DL (8.5-10.1); CREATININE FOR GFR 1.39 MG/DL (0.55-1.30); GLOMERULAR FILTRATION RATE 51.8 (>51); MAGNESIUM LEVEL 1.5 MG/DL (1.8-2.4); PHOSPHORUS LEVEL 2.5 MG/DL (2.5-4.9); POTASSIUM SERUM 4.1 MMOL/L (3.5-5.1)
[2023-07-07 19:42] LABS: HEMOGLOBIN 9.1 g/dl (12.0-15.5)
[2023-07-07 19:42] LABS: ACETONE/KETONE > 4.50 MMOL/L (0.02-0.27); ALBUMIN 3.4 G/DL (3.2-5.2); ALKALINE PHOSPHATASE 81 U/L (46-116); ALT/SGPT 20 U/L (7.0-40); AST/SGOT 15 U/L (<34); BILIRUBIN,DIRECT 0.1 MG/DL (<0.4); BILIRUBIN,TOTAL 0.3 MG/DL (0.3-1.2); TOTAL PROTEIN 6.3 G/DL (5.7-8.2)
[2023-07-07 20:04] VITALS: BP 148/79; TEMP 98.8; O2SAT 100
[2023-07-07] MEDS: MAG SULF 1GM/100ML (MAG RUN) 1 GM in IV 1 EA IV ONE (20:24)
[2023-07-07] MEDS: KCL 40MEQ IN D5/0.45NS 1000ML 1,000 ML IV SCH (20:25)
[2023-07-07] MEDS ORDERED: LIDOCAINE 1% MDV 20ML VIAL As Ordered ONE (20:42)
[2023-07-07] MEDS: GABAPENTIN 300 MG CAP PO ONE (21:10)
[2023-07-07] MEDS: LIDOCAINE 1% MDV 20ML VIAL SC ONE (21:10)
[2023-07-07 22:00] VITALS: BP 117/69; O2SAT 100
[2023-07-07] MEDS: HEPARIN SOD (PORCINE) 5000UNITS/ML 1ML VIAL/SYRINGE SC SCH (22:00)
[2023-07-07 23:56] LABS: CREATININE FOR GFR 1.26 MG/DL (0.55-1.30); MAGNESIUM LEVEL 1.9 MG/DL (1.8-2.4); PHOSPHORUS LEVEL 1.8 MG/DL (2.5-4.9); POTASSIUM SERUM 4.3 MMOL/L (3.5-5.1)
[2023-07-08] VITALS: BP 110/69; TEMP 98.5; O2SAT 100
[2023-07-08] MEDS ORDERED: GLUCOSE 4GM CHEW TABLET PO PRN (00:30)
[2023-07-08] MEDS ORDERED: DEXTROSE 50% 50ML SYRINGE IV PRN (00:30)
[2023-07-08] MEDS ORDERED: GLUCAGON INJ 1MG VIAL SC PRN (00:30)
[2023-07-08] MEDS: LEVEMIR (INSULIN DETEMIR) 1 UNITS/0.01ML SC SCH (00:38)
[2023-07-08] MEDS: SODIUM PHOSPHATE INJ 20 MMOL in D5W 250 ML IV ONE (01:26)
[2023-07-08 04:00] VITALS: BP 106/70; TEMP 98; O2SAT 100
[2023-07-08 06:21] LABS: BLOOD UREA NITROGEN 19 MG/DL (9-23); CALCIUM LEVEL 7.8 MG/DL (8.5-10.1); CARBON DIOXIDE LEVEL 18 MMOL/L (20-31); CHLORIDE LEVEL 101 MMOL/L (98-107); CREATININE FOR GFR 1.17 MG/DL (0.55-1.30); GLOMERULAR FILTRATION RATE > 60.0 (>51); GLUCOSE, FASTING 156 MG/DL (60-100); MAGNESIUM LEVEL 1.7 MG/DL (1.8-2.4); POTASSIUM SERUM 4.5 MMOL/L (3.5-5.1); SODIUM LEVEL 131 MMOL/L (136-145)
[2023-07-08 08:00] VITALS: BP 126/79; TEMP 98.5; O2SAT 100
[2023-07-08] MEDS ORDERED: METO10TA3 PO (08:03)
[2023-07-08] MEDS ORDERED: HOME MED LIST COMPLETE! XX SCH (08:05)
[2023-07-08] MEDS: PANTOPRAZOLE 40MG VIAL IV SCH (09:04)
[2023-07-08] MEDS: INSULIN LISPRO (NovoLOG) PER UNIT SC SCH ×4 (09:07→21:00)
[2023-07-08] MEDS: MAG SULF 1GM/100ML (MAG RUN) 1 GM in IV 1 EA IV ONE (09:08)
[2023-07-08 11:02] LABS: BLOOD UREA NITROGEN 16 MG/DL (9-23); CALCIUM LEVEL 8.1 MG/DL (8.5-10.1); CARBON DIOXIDE LEVEL 20 MMOL/L (20-31); CHLORIDE LEVEL 101 MMOL/L (98-107); CREATININE FOR GFR 1.09 MG/DL (0.55-1.30); GLOMERULAR FILTRATION RATE > 60.0 (>51); GLUCOSE, FASTING 155 MG/DL (60-100); PHOSPHORUS LEVEL 2.9 MG/DL (2.5-4.9); POTASSIUM SERUM 4.3 MMOL/L (3.5-5.1); SODIUM LEVEL 129 MMOL/L (136-145)
[2023-07-08 12:00] VITALS: BP 112/72; TEMP 98.3; O2SAT 100
[2023-07-08] MEDS: METOCLOPRAMIDE 10MG TAB PO SCH (17:12)
[2023-07-08 17:14] LABS: PLATELET COUNT, AUTOMATED 337 10^3/uL (150-450)
[2023-07-08 20:14] VITALS: BP 136/87; TEMP 98.1; O2SAT 100
[2023-07-08] MEDS ORDERED: INSULIN LISPRO (NovoLOG) PER UNIT SC SCH (21:00)
[2023-07-08] MEDS: METOCLOPRAMIDE INJ 10MG/2ML VIAL IV PRN (21:11)
[2023-07-09] MEDS: MORPHINE 2 MG/ML 1ML VIAL IV ONE ×2 (02:45→08:21)
[2023-07-09 05:00] VITALS: BP 110/64; TEMP 98.4; O2SAT 98
[2023-07-09 05:14] LABS: BASO % 0.5 % (0.0-1.0); EOS # 0.1 10^3/uL (0.0-0.5); EOS % 1.3 % (0.0-3.0); HEMATOCRIT 24.3 % (36.0-47.0); HEMOGLOBIN 8.5 g/dl (12.0-15.5); LYMPH # 1.5 10^3/uL (1.5-5.0); LYMPH % 23.7 % (24.0-44.0); MEAN CORPUSCULAR HEMOGLOBIN 28.9 pg (27.0-33.0); MEAN CORPUSCULAR VOLUME 82.7 fl (80.0-96.0); MONO # 0.3 10^3/uL (0.0-0.8); MONO % 5.4 % (2.0-8.0); NEUTROPHILS # 4.4 10^3/uL (1.5-8.5); NEUTROPHILS % 68.9 % (36.0-66.0); PLATELET COUNT, AUTOMATED 284 10^3/uL (150-450); RED BLOOD COUNT 2.94 10^6/uL (4.00-5.40); WHITE BLOOD COUNT 6.3 10^3/uL (4.0-10.0)
[2023-07-09 05:39] LABS: BLOOD UREA NITROGEN 13 MG/DL (9-23); CALCIUM LEVEL 8.5 MG/DL (8.5-10.1); CARBON DIOXIDE LEVEL 23 MMOL/L (20-31); CHLORIDE LEVEL 103 MMOL/L (98-107); CREATININE FOR GFR 1.15 MG/DL (0.55-1.30); GLOMERULAR FILTRATION RATE > 60.0 (>51); GLUCOSE, FASTING 199 MG/DL (60-100); MAGNESIUM LEVEL 1.6 MG/DL (1.8-2.4); POTASSIUM SERUM 4.1 MMOL/L (3.5-5.1); SODIUM LEVEL 131 MMOL/L (136-145)
[2023-07-09] MEDS ORDERED: PERCOCET 5MG/325MG TAB PO PRN (07:35)
[2023-07-09 08:00] VITALS: BP 175/98; TEMP 98.5; O2SAT 99
[2023-07-09 08:09] LABS: LIPASE 29 U/L (12-53)
[2023-07-09 08:13] LABS: ALKALINE PHOSPHATASE 79 U/L (46-116); ALT/SGPT 18 U/L (7.0-40); AST/SGOT 17 U/L (<34); BILIRUBIN,DIRECT 0.1 MG/DL (<0.4); BILIRUBIN,TOTAL 0.3 MG/DL (0.3-1.2); TOTAL PROTEIN 5.5 G/DL (5.7-8.2)
[2023-07-09 09:45] VITALS: BP 166/92
[2023-07-09] MEDS: PANTOPRAZOLE 40MG TAB (PROTONIX) PO SCH (09:45)
[2023-07-09] MEDS: MULTIVITAMINS/MINERALS THERAP 1 TAB PO SCH (09:45)
[2023-07-09] MEDS: MAG SULF 1GM/100ML (MAG RUN) 1 GM in IV 1 EA IV SCH (12:17)
[2023-07-09] MEDS: SUCRALFATE SUSP 1GM/10ML UD PO SCH (12:17)
[2023-07-09] MEDS ORDERED: ADME100I SC ×2 (14:24)
[2023-07-09] MEDS ORDERED: CARA1TAB6 PO (14:24)
[2023-07-09 14:36] VITALS: BP 126/79
== END 2023-07-09 16:15 | disposition home or self-care (01) | DRG 420 ==
LOC: EDBD 11:15 → M ED 15:58 → M ED INP 16:00 → M ICU 17:30
PROVIDERS: ADMIT Internal Medicine Pulmonary Disease; ATTEND Internal Medicine
DX: E10.10 Type 1 diabetes mellitus with ketoacidosis without coma (principal); K31.84 Gastroparesis; N17.9 Acute kidney failure, unspecified; I48.0 Paroxysmal atrial fibrillation; E10.43 Type 1 diabetes mellitus with diabetic autonomic (poly)neuropathy; N18.30 Chronic kidney disease, stage 3 unspecified; E10.22 Type 1 diabetes mellitus with diabetic chronic kidney disease; F12.188 Cannabis abuse with other cannabis-induced disorder; R11.2 Nausea with vomiting, unspecified; E10.65 Type 1 diabetes mellitus with hyperglycemia; D64.9 Anemia, unspecified; E87.1 Hypo-osmolality and hyponatremia; K21.9 Gastro-esophageal reflux disease without esophagitis; Z87.891 Personal history of nicotine dependence; Z79.4 Long term (current) use of insulin; Z79.899 Other long term (current) drug therapy

== ENCOUNTER 2023-07-21 08:59 | Inpatient (IN) | payer MEDICAID, OTHER ==
[~2023-07-21] VITALS: Ht 170.2 cm; Wt 63.6 kg
[2023-07-21] MEDS: NS 1,000 ML IV ONE (09:44)
[2023-07-21] MEDS: HALOPERIDOL 5MG/ML 1ML VIAL IV ONE (09:44)
[2023-07-21 10:31] LABS: VENOUS BASE EXCESS -10.6 (-2.0-2.0); VENOUS HCO3 16.3 MMOL/L (23.0-27.0); VENOUS O2 SATURATION 53.6 % (60.0-80.0); VENOUS PARTIAL PRESSURE CO2 39.7 mmHg (38.0-50.0); VENOUS PARTIAL PRESSURE O2 33.3 mmHg (30.0-50.0); VENOUS PH 7.231 UNITS (7.330-7.430); VENOUS STANDARD HCO3 15.3 MMOL/L; VENOUS TOTAL CO2 17.5 MMOL/L (24.0-28.0)
[2023-07-21 10:39] LABS: BASO # 0.1 10^3/uL (0.0-0.2); BASO % 0.5 % (0.0-1.0); HEMATOCRIT 33.3 % (36.0-47.0); HEMOGLOBIN 10.8 g/dl (12.0-15.5); LYMPH # 0.8 10^3/uL (1.5-5.0); LYMPH % 7.6 % (24.0-44.0); MEAN CORPUSCULAR HEMOGLOBIN 28.3 pg (27.0-33.0); MEAN CORPUSCULAR HGB CONC 32.4 g/dl (32.0-36.5); MEAN CORPUSCULAR VOLUME 87.2 fl (80.0-96.0); MONO # 0.4 10^3/uL (0.0-0.8); MONO % 3.4 % (2.0-8.0); NEUTROPHILS # 9.4 10^3/uL (1.5-8.5); NEUTROPHILS % 88.3 % (36.0-66.0); PLATELET COUNT, AUTOMATED 329 10^3/uL (150-450); RED BLOOD COUNT 3.82 10^6/uL (4.00-5.40); WHITE BLOOD COUNT 10.7 10^3/uL (4.0-10.0)
[2023-07-21 12:05] LABS: ACETONE/KETONE > 4.50 MMOL/L (0.02-0.27); BLOOD UREA NITROGEN 44 MG/DL (9-23); CALCIUM LEVEL 8.3 MG/DL (8.5-10.1); CARBON DIOXIDE LEVEL 21 MMOL/L (20-31); CHLORIDE LEVEL 98 MMOL/L (98-107); CREATININE FOR GFR 1.67 MG/DL (0.55-1.30); GLOMERULAR FILTRATION RATE 41.9 (>51); GLUCOSE, FASTING 311 MG/DL (60-100); POTASSIUM SERUM 4.2 MMOL/L (3.5-5.1); SODIUM LEVEL 134 MMOL/L (136-145)
[2023-07-21] MEDS ORDERED: INSULIN IV RATE CHANGE DOCUMENTATION ML/HR XX SCH (12:35)
[2023-07-21] MEDS ORDERED: MED REC IN PROGRESS XX SCH (12:45)
[2023-07-21] MEDS: INSULIN REGULAR IN 0.9 % NACL 100 UNIT in IV 1 EA IV SCH (12:48)
[2023-07-21] MEDS: D5W/0.9% SODIUM CHLORIDE 1,000 ML IV SCH ×2 (12:49→13:35)
[2023-07-21] MEDS ORDERED: ADME100I SC (13:35)
[2023-07-21] MEDS ORDERED: HOME MED LIST COMPLETE! XX SCH (13:35)
[2023-07-21] MEDS ORDERED: INSULIN REGULAR IN 0.9 % NACL 100 UNIT in IV 1 EA IV SCH (13:35)
[2023-07-21] MEDS: PANTOPRAZOLE 40MG VIAL IV SCH (13:55)
[2023-07-21] MEDS ORDERED: ONDANSETRON 4MG 2ML VIAL IV PRN (14:00)
[2023-07-21] MEDS: HEPARIN SOD (PORCINE) 5000UNITS/ML 1ML VIAL/SYRINGE SC SCH (14:00)
[2023-07-21 15:27] VITALS: BP 120/76; TEMP 97.9; O2SAT 100
[2023-07-21] MEDS: INSULIN IV RATE CHANGE DOCUMENTATION ML/HR XX SCH (15:30)
[2023-07-21] MEDS ORDERED: METOCLOPRAMIDE INJ 10MG/2ML VIAL IV PRN (15:45)
[2023-07-21 16:54] LABS: ALBUMIN 3.1 G/DL (3.2-5.2); BILIRUBIN,TOTAL 0.6 MG/DL (0.3-1.2); CALCIUM LEVEL 8.4 MG/DL (8.5-10.1); CREATININE FOR GFR 1.44 MG/DL (0.55-1.30); GLOMERULAR FILTRATION RATE 49.7 (>51); MAGNESIUM LEVEL 1.6 MG/DL (1.8-2.4); PHOSPHORUS LEVEL 1.9 MG/DL (2.5-4.9); POTASSIUM SERUM 3.5 MMOL/L (3.5-5.1); TOTAL PROTEIN 5.8 G/DL (5.7-8.2)
[2023-07-21 19:56] VITALS: BP 105/64; TEMP 97.6; O2SAT 100
[2023-07-21] MEDS: MORPHINE 2 MG/ML 1ML VIAL IV PRN (20:11)
[2023-07-21] MEDS: POTASSIUM CHLORIDE 10MEQ SR TABLET PO ONE (20:11)
[2023-07-21] MEDS: MAG SULF 1GM/100ML (MAG RUN) 1 GM in IV 1 EA IV ONE (20:12)
[2023-07-21] MEDS: POTASSIUM PHOSPHATE INJ 30 MMOL in D5W 500 ML IV ONE (21:28)
[2023-07-21 21:41] LABS: ALBUMIN 3.1 G/DL (3.2-5.2); BILIRUBIN,TOTAL 0.7 MG/DL (0.3-1.2); CALCIUM LEVEL 8.2 MG/DL (8.5-10.1); CREATININE FOR GFR 1.3 MG/DL (0.55-1.30); GLOMERULAR FILTRATION RATE 55.9 (>51); MAGNESIUM LEVEL 1.8 MG/DL (1.8-2.4); PHOSPHORUS LEVEL 1.5 MG/DL (2.5-4.9); POTASSIUM SERUM 3.3 MMOL/L (3.5-5.1)
[2023-07-21] MEDS ORDERED: GLUCOSE 4GM CHEW TABLET PO PRN (23:00)
[2023-07-21] MEDS ORDERED: GLUCAGON INJ 1MG VIAL SC PRN (23:00)
[2023-07-21] MEDS ORDERED: DEXTROSE 50% 50ML SYRINGE IV PRN (23:00)
[2023-07-21] MEDS: GABAPENTIN 300 MG CAP PO ONE (23:31)
[2023-07-21] MEDS: LEVEMIR (INSULIN DETEMIR) 1 UNITS/0.01ML SC SCH (23:38)
[2023-07-22 00:01] VITALS: BP 106/65; TEMP 98; O2SAT 100
[2023-07-22 04:08] VITALS: BP 116/71; TEMP 97.8; O2SAT 100
[2023-07-22 05:33] LABS: CALCIUM LEVEL 7.6 MG/DL (8.5-10.1); CREATININE FOR GFR 1.27 MG/DL (0.55-1.30); GLOMERULAR FILTRATION RATE 57.5 (>51); POTASSIUM SERUM 4.9 MMOL/L (3.5-5.1)
[2023-07-22] MEDS: INSULIN LISPRO (NovoLOG) PER UNIT SC SCH (07:30)
[2023-07-22 08:00] VITALS: BP 114/76; TEMP 97.9; O2SAT 100
[2023-07-22] MEDS ORDERED: REGL5TAB2 PO (12:23)
[2023-07-22] MEDS ORDERED: PEN-308 SC (12:40)
[2023-07-22] MEDS ORDERED: INSULIN LISPRO (NovoLOG) PER UNIT SC SCH (21:00)
== END 2023-07-22 13:21 | disposition home or self-care (01) | DRG 468 ==
LOC: EDBD 08:59 → M ED 08:59 → M ED INP 13:33 → M ICU 15:18
PROVIDERS: ADMIT Internal Medicine Pulmonary Disease; ATTEND Student in an Organized Health Care Education/Training Program
DX: E10.22 Type 1 diabetes mellitus with diabetic chronic kidney disease (principal); E10.43 Type 1 diabetes mellitus with diabetic autonomic (poly)neuropathy; N17.9 Acute kidney failure, unspecified; I48.0 Paroxysmal atrial fibrillation; N18.30 Chronic kidney disease, stage 3 unspecified; Z87.891 Personal history of nicotine dependence; Z79.4 Long term (current) use of insulin

== ENCOUNTER 2023-08-29 17:13 | Inpatient (IN) | payer MEDICAID, OTHER ==
[~2023-08-29] VITALS: Ht 170.2 cm; Wt 62.9 kg
[~2023-08-29 17:13] MED LIST changes: -PROC25SU24 PR; +PROC25SU27 PR
[2023-08-29 18:35] LABS: VENOUS BASE EXCESS -4.2 (-2.0-2.0); VENOUS HCO3 18.1 MMOL/L (23.0-27.0); VENOUS O2 SATURATION 97.1 % (60.0-80.0); VENOUS PARTIAL PRESSURE CO2 25.3 mmHg (38.0-50.0); VENOUS PARTIAL PRESSURE O2 94.7 mmHg (30.0-50.0); VENOUS PH 7.472 UNITS (7.330-7.430); VENOUS TOTAL CO2 18.9 MMOL/L (24.0-28.0)
[2023-08-29] MEDS: METOCLOPRAMIDE INJ 10MG/2ML VIAL IV ONE (18:40)
[2023-08-29] MEDS: NS 1,000 ML IV ONE (18:41)
[2023-08-29] MEDS: MORPHINE 4 MG/ML 1ML VIAL IV ONE ×2 (18:41→19:57)
[2023-08-29 18:43] LABS: BASO # 0.1 10^3/uL (0.0-0.2); BASO % 0.8 % (0.0-1.0); EOS # 0.1 10^3/uL (0.0-0.5); EOS % 1.3 % (0.0-3.0); HEMATOCRIT 28.7 % (36.0-47.0); HEMOGLOBIN 10.1 g/dl (12.0-15.5); LYMPH # 2.2 10^3/uL (1.5-5.0); MEAN CORPUSCULAR HEMOGLOBIN 29.4 pg (27.0-33.0); MEAN CORPUSCULAR HGB CONC 35.2 g/dl (32.0-36.5); MEAN CORPUSCULAR VOLUME 83.4 fl (80.0-96.0); MONO # 0.4 10^3/uL (0.0-0.8); MONO % 4.8 % (2.0-8.0); NEUTROPHILS # 5.7 10^3/uL (1.5-8.5); NEUTROPHILS % 66.9 % (36.0-66.0); PLATELET COUNT, AUTOMATED 285 10^3/uL (150-450); RED BLOOD COUNT 3.44 10^6/uL (4.00-5.40); WHITE BLOOD COUNT 8.6 10^3/uL (4.0-10.0)
[2023-08-29 19:06] LABS: ACETONE/KETONE 0.62 MMOL/L (0.02-0.27)
[2023-08-29 19:21] LABS: ALBUMIN 4.4 G/DL (3.2-5.2); BILIRUBIN,DIRECT 0.1 MG/DL (<0.4); BILIRUBIN,TOTAL 0.5 MG/DL (0.3-1.2); CREATININE FOR GFR 1.26 MG/DL (0.55-1.30); MAGNESIUM LEVEL 1.7 MG/DL (1.8-2.4); PHOSPHORUS LEVEL 2.2 MG/DL (2.5-4.9); POTASSIUM SERUM 4.5 MMOL/L (3.5-5.1); TOTAL PROTEIN 7.4 G/DL (5.7-8.2)
[2023-08-29] MEDS ORDERED: ISOVUE-370 76% 100ML VIAL As Ordered ONE (19:53)
[2023-08-29] MEDS: ONDANSETRON 4MG 2ML VIAL IV ONE (19:55)
[2023-08-29] MEDS: NS 1,000 ML IV SCH (21:06)
[2023-08-29] MEDS ORDERED: HOME MED LIST COMPLETE! XX SCH (22:35)
[2023-08-29] MEDS: MAGNESIUM OXIDE 400MG TAB (MAG-OX) PO ONE (22:47)
[2023-08-29] MEDS: NEUTRA-PHOS 1.5 GM PACKET PO ONE (22:47)
[2023-08-29] MEDS ORDERED: MORPHINE 2 MG/ML 1ML VIAL IV PRN (23:20)
[2023-08-29] MEDS ORDERED: GLUCOSE 4 GM CHEW PO PRN (23:20)
[2023-08-29] MEDS ORDERED: GLUCAGON INJ 1MG VIAL SC PRN (23:20)
[2023-08-29] MEDS ORDERED: ACETAMINOPHEN TAB 650MG DOSE (2X325MG) PO PRN (23:20)
[2023-08-30] VITALS (8 sets, daily range): BP systolic 102–168; BP diastolic 64–102; TEMP 97.5–99.1; O2SAT 98–100
[2023-08-30] MEDS: METOCLOPRAMIDE INJ 10MG/2ML VIAL IV PRN (00:12)
[2023-08-30] MEDS: LR 1,000 ML IV SCH (00:12)
[2023-08-30] MEDS: MORPHINE 2 MG/ML 1ML VIAL IV PRN (00:13)
[2023-08-30] MEDS: LABETALOL 100MG/20ML VIAL IV STA (00:42)
[2023-08-30] MEDS: HEPARIN SOD (PORCINE) 5000UNITS/ML 1ML VIAL/SYRINGE SC SCH (05:05)
[2023-08-30] MEDS: HALOPERIDOL LACTATE 5MG/ML VIAL IV ONE (05:09)
[2023-08-30 07:15] LABS: BLOOD UREA NITROGEN 25 MG/DL (9-23); CALCIUM LEVEL 9.6 MG/DL (8.5-10.1); CARBON DIOXIDE LEVEL 16 MMOL/L (20-31); CHLORIDE LEVEL 101 MMOL/L (98-107); CREATININE FOR GFR 1.16 MG/DL (0.55-1.30); GLOMERULAR FILTRATION RATE > 60.0 (>51); GLUCOSE, FASTING 360 MG/DL (60-100); POTASSIUM SERUM 4.3 MMOL/L (3.5-5.1); SODIUM LEVEL 134 MMOL/L (136-145)
[2023-08-30] MEDS: INSULIN LISPRO (NovoLOG) PER UNIT SC SCH (07:30)
[2023-08-30] MEDS: LEVEMIR (INSULIN DETEMIR) 1 UNITS/0.01ML SC SCH ×2 (08:08→19:31)
[2023-08-30 09:05] LABS: ABG BASE EXCESS -11.5 (-2.0-2.0); ABG O2 SATURATION 97.1 % (95.0-99.0); ABG PARTIAL PRESSURE CO2 30.2 mmHg (35.0-45.0); ABG PARTIAL PRESSURE O2 103.7 mmHg (75.0-100.0); ABG STANDARD HCO3 15.4 MMOL/L. (22.0-26.0); ABG TOTAL CO2 14.9 MMOL/L (22.0-29.0); ABG pH (ARTERIAL) 7.284 UNITS (7.350-7.450)
[2023-08-30 10:50] LABS: BLOOD UREA NITROGEN 28 MG/DL (9-23); CALCIUM LEVEL 9.3 MG/DL (8.5-10.1); CARBON DIOXIDE LEVEL 12 MMOL/L (20-31); CHLORIDE LEVEL 106 MMOL/L (98-107); CREATININE FOR GFR 1.22 MG/DL (0.55-1.30); GLOMERULAR FILTRATION RATE > 60.0 (>51); GLUCOSE, FASTING 385 MG/DL (60-100); POTASSIUM SERUM 5.2 MMOL/L (3.5-5.1); SODIUM LEVEL 135 MMOL/L (136-145)
[2023-08-30] MEDS: INSULIN REGULAR IN 0.9 % NACL 100 UNIT in IV 1 EA IV SCH (12:00)
[2023-08-30] MEDS: INSULIN IV RATE CHANGE DOCUMENTATION ML/HR XX SCH (13:00)
[2023-08-30] MEDS: D5W/LR 1,000 ML IV SCH ×2 (15:07→19:59)
[2023-08-30 15:35] LABS: CALCIUM LEVEL 8.2 MG/DL (8.5-10.1); CREATININE FOR GFR 1.26 MG/DL (0.55-1.30); MAGNESIUM LEVEL 1.2 MG/DL (1.8-2.4); PHOSPHORUS LEVEL 3.4 MG/DL (2.5-4.9); POTASSIUM SERUM 3.8 MMOL/L (3.5-5.1)
[2023-08-30] MEDS: MAG SULF 1GM/100ML (MAG RUN) 1 GM in IV 1 EA IV ONE (16:13)
[2023-08-30 18:46] LABS: BLOOD UREA NITROGEN 29 MG/DL (9-23); CALCIUM LEVEL 7.8 MG/DL (8.5-10.1); CARBON DIOXIDE LEVEL 22 MMOL/L (20-31); CHLORIDE LEVEL 107 MMOL/L (98-107); GLOMERULAR FILTRATION RATE > 60.0 (>51); GLUCOSE, FASTING 148 MG/DL (60-100); PHOSPHORUS LEVEL 2.5 MG/DL (2.5-4.9); POTASSIUM SERUM 4.2 MMOL/L (3.5-5.1); SODIUM LEVEL 134 MMOL/L (136-145)
[2023-08-30] MEDS ORDERED: INSULIN LISPRO (NovoLOG) PER UNIT SC SCH (21:00)
[2023-08-30] MEDS: DEXTROSE 50% 50ML SYRINGE IV PRN (21:13)
[2023-08-31] VITALS (8 sets, daily range): BP systolic 112–195; BP diastolic 64–106; TEMP 98–99.2; O2SAT 96–100
[2023-08-31 00:48] LABS: CALCIUM LEVEL 8.5 MG/DL (8.5-10.1); CREATININE FOR GFR 1.34 MG/DL (0.55-1.30); PHOSPHORUS LEVEL 2.9 MG/DL (2.5-4.9); POTASSIUM SERUM 3.7 MMOL/L (3.5-5.1)
[2023-08-31 06:28] LABS: CREATININE FOR GFR 1.28 MG/DL (0.55-1.30); GLOMERULAR FILTRATION RATE 56.9 (>51); PHOSPHORUS LEVEL 3.3 MG/DL (2.5-4.9); POTASSIUM SERUM 4.1 MMOL/L (3.5-5.1)
[2023-08-31] MEDS ORDERED: GLUCAGON INJ 1MG VIAL SC PRN (07:50)
[2023-08-31] MEDS ORDERED: DEXTROSE 50% 50ML SYRINGE IV PRN (07:50)
[2023-08-31] MEDS ORDERED: GLUCOSE 4 GM CHEW PO PRN (07:50)
[2023-08-31] MEDS: INSULIN LISPRO (NovoLOG) PER UNIT SC SCH ×2 (10:18→21:00)
[2023-08-31] MEDS: fentaNYL 100 MCG/2 ML INJECTION IV ONE (11:22)
[2023-08-31] MEDS: PANTOPRAZOLE 40MG VIAL IV SCH (14:27)
[2023-08-31 15:42] LABS: MAGNESIUM LEVEL 1.7 MG/DL (1.8-2.4)
[2023-08-31] MEDS: METOCLOPRAMIDE INJ 10MG/2ML VIAL IV SCH (16:05)
[2023-08-31] MEDS: MAG SULF 1GM/100ML (MAG RUN) 1 GM in IV 1 EA IV ONE (16:05)
[2023-08-31 16:07] LABS: BASO % 0.5 % (0.0-1.0); EOS # 0.1 10^3/uL (0.0-0.5); EOS % 1.4 % (0.0-3.0); HEMATOCRIT 25.7 % (36.0-47.0); HEMOGLOBIN 8.8 g/dl (12.0-15.5); LYMPH # 2.5 10^3/uL (1.5-5.0); LYMPH % 31.4 % (24.0-44.0); MEAN CORPUSCULAR HEMOGLOBIN 29.2 pg (27.0-33.0); MEAN CORPUSCULAR HGB CONC 34.2 g/dl (32.0-36.5); MEAN CORPUSCULAR VOLUME 85.4 fl (80.0-96.0); MONO # 0.7 10^3/uL (0.0-0.8); MONO % 8.7 % (2.0-8.0); NEUTROPHILS # 4.5 10^3/uL (1.5-8.5); NEUTROPHILS % 57.7 % (36.0-66.0); PLATELET COUNT, AUTOMATED 226 10^3/uL (150-450); RED BLOOD COUNT 3.01 10^6/uL (4.00-5.40); WHITE BLOOD COUNT 7.8 10^3/uL (4.0-10.0)
[2023-08-31 16:47] LABS: AMPHETAMINES LEVEL URINE NEGATIVE (NEGATIVE); BARBITURATES URINE NEGATIVE (NEGATIVE); BENZODIAZEPINES URINE NEGATIVE (NEGATIVE); COCAINE METABOLITE URINE NEGATIVE (NEGATIVE); METHADONE URINE NEGATIVE (NEGATIVE); PHENCYCLIDINE URINE NEGATIVE (NEGATIVE)
[2023-08-31 16:51] LABS: CANNABINOIDS URINE POSITIVE (NEGATIVE); OPIATES URINE POSITIVE (NEGATIVE)
[2023-08-31] MEDS: MORPHINE 10 MG/ML 1ML VIAL IV PRN (19:27)
[2023-08-31] MEDS: DOCUSATE SODIUM 100MG CAPSULE PO SCH (21:00)
[2023-08-31] MEDS: SENNA 8.6 MG TAB (SENOKOT) PO SCH (21:00)
[2023-09-01 03:44] VITALS: BP 147/93; TEMP 97.9; O2SAT 98
[2023-09-01 05:30] LABS: BASO # 0.1 10^3/uL (0.0-0.2); BASO % 0.8 % (0.0-1.0); EOS # 0.1 10^3/uL (0.0-0.5); EOS % 2.1 % (0.0-3.0); HEMATOCRIT 28.3 % (36.0-47.0); HEMOGLOBIN 9.9 g/dl (12.0-15.5); LYMPH # 2.2 10^3/uL (1.5-5.0); LYMPH % 35.2 % (24.0-44.0); MEAN CORPUSCULAR HEMOGLOBIN 29.4 pg (27.0-33.0); MONO # 0.5 10^3/uL (0.0-0.8); MONO % 8.3 % (2.0-8.0); NEUTROPHILS # 3.3 10^3/uL (1.5-8.5); NEUTROPHILS % 53.4 % (36.0-66.0); PLATELET COUNT, AUTOMATED 223 10^3/uL (150-450); RED BLOOD COUNT 3.37 10^6/uL (4.00-5.40); WHITE BLOOD COUNT 6.1 10^3/uL (4.0-10.0)
[2023-09-01 05:57] LABS: BLOOD UREA NITROGEN 15 MG/DL (9-23); CALCIUM LEVEL 9.4 MG/DL (8.5-10.1); CARBON DIOXIDE LEVEL 24 MMOL/L (20-31); CHLORIDE LEVEL 106 MMOL/L (98-107); CREATININE FOR GFR 1.13 MG/DL (0.55-1.30); GLOMERULAR FILTRATION RATE > 60.0 (>51); GLUCOSE, FASTING 116 MG/DL (60-100); POTASSIUM SERUM 3.9 MMOL/L (3.5-5.1); SODIUM LEVEL 136 MMOL/L (136-145)
[2023-09-01 08:27] VITALS: BP 161/89; TEMP 98; O2SAT 96
[2023-09-01] MEDS ORDERED: ACET1TAB55 PO (14:40)
== END 2023-09-01 16:03 | disposition home or self-care (01) | DRG 48 ==
LOC: M ED 17:13 → M ED INP 23:05 → M MS5PR 08-30 01:05 → OBSVTOIN 08-30 08:26 → M ICU 08-30 11:40
PROVIDERS: ADMIT Internal Medicine; ATTEND Family Medicine
DX: E10.43 Type 1 diabetes mellitus with diabetic autonomic (poly)neuropathy (principal); E10.22 Type 1 diabetes mellitus with diabetic chronic kidney disease; N18.31 Chronic kidney disease, stage 3a; E10.65 Type 1 diabetes mellitus with hyperglycemia; I48.0 Paroxysmal atrial fibrillation; K31.84 Gastroparesis; F12.288 Cannabis dependence with other cannabis-induced disorder; R11.2 Nausea with vomiting, unspecified; Z79.899 Other long term (current) drug therapy; Z79.4 Long term (current) use of insulin; E10.10 Type 1 diabetes mellitus with ketoacidosis without coma

== ENCOUNTER 2023-09-27 06:50 | Emergency (ER) | payer MEDICAID, OTHER ==
[~2023-09-27] VITALS: Ht 170.2 cm; Wt 59.1 kg
[~2023-09-27 06:50] MED LIST changes: +ONDA-282 PO; -ONDA4TAB6 PO
[2023-09-27] MEDS: HALOPERIDOL LACTATE 5MG/ML VIAL IV ONE (08:12)
[2023-09-27] MEDS: NS 1,000 ML IV ONE (08:12)
[2023-09-27 08:16] LABS: BASO # 0.1 10^3/uL (0.0-0.2); EOS # 0.1 10^3/uL (0.0-0.5); EOS % 1.9 % (0.0-3.0); HEMATOCRIT 31.7 % (36.0-47.0); HEMOGLOBIN 10.8 g/dl (12.0-15.5); LYMPH # 1.8 10^3/uL (1.5-5.0); LYMPH % 29.1 % (24.0-44.0); MEAN CORPUSCULAR HGB CONC 34.1 g/dl (32.0-36.5); MONO # 0.3 10^3/uL (0.0-0.8); MONO % 5.5 % (2.0-8.0); NEUTROPHILS # 3.9 10^3/uL (1.5-8.5); NEUTROPHILS % 62.2 % (36.0-66.0); PLATELET COUNT, AUTOMATED 305 10^3/uL (150-450); RED BLOOD COUNT 3.73 10^6/uL (4.00-5.40); WHITE BLOOD COUNT 6.2 10^3/uL (4.0-10.0)
[2023-09-27 08:25] LABS: CALCIUM LEVEL 9.8 MG/DL (8.5-10.1); CREATININE FOR GFR 1.23 MG/DL (0.55-1.30); GLOMERULAR FILTRATION RATE 59.4 (>51); POTASSIUM SERUM 4.6 MMOL/L (3.5-5.1)
[2023-09-27 08:53] LABS: ABG BASE EXCESS -4.4 (-2.0-2.0); ABG HCO3 19.4 MMOL/L (22.0-26.0); ABG O2 SATURATION 97.7 % (95.0-99.0); ABG PARTIAL PRESSURE CO2 31.2 mmHg (35.0-45.0); ABG PARTIAL PRESSURE O2 112.6 mmHg (75.0-100.0); ABG STANDARD HCO3 20.8 MMOL/L. (22.0-26.0); ABG TOTAL CO2 20.3 MMOL/L (22.0-29.0); ABG pH (ARTERIAL) 7.411 UNITS (7.350-7.450)
[2023-09-27 08:53] LABS: ACETONE/KETONE 2.48 MMOL/L (0.02-0.27)
[2023-09-27] MEDS: ACETAMINOPHEN *IV* 1,000 MG in IV 1 EA IV ONE (10:24)
[2023-09-27] MEDS: NS IV ONE (12:19)
[2023-09-27] MEDS: KETAMINE HCL IV ONE (12:19)
[2023-09-27] MEDS: METOCLOPRAMIDE INJ 10MG/2ML VIAL IV ONE (14:24)
[2023-09-27 14:38] LABS: ALBUMIN 4.3 G/DL (3.2-5.2); BILIRUBIN,DIRECT 0.2 MG/DL (<0.4); BILIRUBIN,TOTAL 0.8 MG/DL (0.3-1.2); TOTAL PROTEIN 7.4 G/DL (5.7-8.2)
[2023-09-27 15:00] VITALS: BP 126/67; TEMP 97.8; O2SAT 100
== END 2023-09-27 15:15 | disposition home or self-care (01) ==
LOC: M ED 06:50
DX: R10.9 Unspecified abdominal pain (principal); E10.9 Type 1 diabetes mellitus without complications; F12.10 Cannabis abuse, uncomplicated; Z79.1 Long term (current) use of non-steroidal anti-inflammatories (NSAID); Z79.4 Long term (current) use of insulin; Z79.810 Long term (current) use of selective estrogen receptor modulators (SERMs)
CPT/HCPCS: 36600; 80048; 80076; 82010; 82803; 83690; 85025; 96361; 96365; 96366; 96374; 96375; 99285; J0131; J1630; J2765

== ENCOUNTER 2023-10-01 20:24 | Emergency (ER) | payer OTHER ==
[~2023-10-01] VITALS: Ht 170.2 cm; Wt 61.9 kg
[2023-10-01 22:58] LABS: VENOUS BASE EXCESS -3.3 (-2.0-2.0); VENOUS HCO3 21.5 MMOL/L (23.0-27.0); VENOUS PARTIAL PRESSURE CO2 37.8 mmHg (38.0-50.0); VENOUS PARTIAL PRESSURE O2 83.7 mmHg (30.0-50.0); VENOUS PH 7.373 UNITS (7.330-7.430); VENOUS STANDARD HCO3 21.7 MMOL/L; VENOUS TOTAL CO2 22.7 MMOL/L (24.0-28.0)
[2023-10-01 23:06] LABS: BASO % 0.6 % (0.0-1.0); EOS % 0.4 % (0.0-3.0); HEMATOCRIT 30.2 % (36.0-47.0); HEMOGLOBIN 10.5 g/dl (12.0-15.5); LYMPH # 1.8 10^3/uL (1.5-5.0); LYMPH % 27.5 % (24.0-44.0); MEAN CORPUSCULAR HEMOGLOBIN 29.3 pg (27.0-33.0); MEAN CORPUSCULAR HGB CONC 34.8 g/dl (32.0-36.5); MEAN CORPUSCULAR VOLUME 84.4 fl (80.0-96.0); MONO # 0.5 10^3/uL (0.0-0.8); MONO % 7.5 % (2.0-8.0); NEUTROPHILS # 4.3 10^3/uL (1.5-8.5); NEUTROPHILS % 63.7 % (36.0-66.0); PLATELET COUNT, AUTOMATED 235 10^3/uL (150-450); RED BLOOD COUNT 3.58 10^6/uL (4.00-5.40); WHITE BLOOD COUNT 6.7 10^3/uL (4.0-10.0)
[2023-10-01 23:27] LABS: ALBUMIN 3.8 G/DL (3.2-5.2); BILIRUBIN,DIRECT 0.2 MG/DL (<0.4); BILIRUBIN,TOTAL 0.7 MG/DL (0.3-1.2); TOTAL PROTEIN 6.7 G/DL (5.7-8.2)
[2023-10-01 23:31] LABS: ACETONE/KETONE 3.22 MMOL/L (0.02-0.27)
[2023-10-01 23:33] LABS: HEMOGLOBIN A1c 8.5 % (4.0-6.0)
[2023-10-02] MEDS: METOCLOPRAMIDE INJ 10MG/2ML VIAL IV ONE
[2023-10-02] MEDS: NS 1,000 ML IV ONE
[2023-10-02 00:14] LABS: CALCIUM LEVEL 9.5 MG/DL (8.5-10.1); CREATININE FOR GFR 1.32 MG/DL (0.55-1.30); GLOMERULAR FILTRATION RATE 54.7 (>51)
[2023-10-02] MEDS: MORPHINE 2 MG/ML 1ML VIAL IV ONE (00:18)
[2023-10-02] MEDS ORDERED: METO10TA2 PO (01:28)
[2023-10-02 02:06] VITALS: BP 112/73; TEMP 98.1; O2SAT 99
[2023-10-03] MEDS ORDERED: METO10TA3 PO (14:39)
[2023-10-03] MEDS ORDERED: MULT-90 PO (14:39)
== END 2023-10-02 02:08 | disposition home or self-care (01) ==
LOC: M ED 20:24
DX: K31.84 Gastroparesis (principal); E11.9 Type 2 diabetes mellitus without complications; Z79.1 Long term (current) use of non-steroidal anti-inflammatories (NSAID); Z79.4 Long term (current) use of insulin; Z79.810 Long term (current) use of selective estrogen receptor modulators (SERMs)
CPT/HCPCS: 80048; 80076; 82010; 82803; 83036; 83690; 83930; 85025; 93005; 93041; 96374; 96375; 99285; J2765

== ENCOUNTER 2023-10-03 12:45 | Inpatient (IN) | payer OTHER ==
[~2023-10-03] VITALS: Ht 170.2 cm; Wt 61.9 kg
[2023-10-03] MEDS: NS 1,000 ML IV ONE ×3 (13:00→16:05)
[2023-10-03 13:20] LABS: VENOUS BASE EXCESS -13.8 (-2.0-2.0); VENOUS HCO3 10.1 MMOL/L (23.0-27.0); VENOUS O2 SATURATION 95.2 % (60.0-80.0); VENOUS PARTIAL PRESSURE O2 82.4 mmHg (30.0-50.0); VENOUS PH 7.322 UNITS (7.330-7.430); VENOUS STANDARD HCO3 13.7 MMOL/L; VENOUS TOTAL CO2 10.7 MMOL/L (24.0-28.0)
[2023-10-03 13:27] LABS: BASO % 0.4 % (0.0-1.0); EOS % 0.1 % (0.0-3.0); HEMATOCRIT 32.7 % (36.0-47.0); HEMOGLOBIN 10.9 g/dl (12.0-15.5); LYMPH # 1.2 10^3/uL (1.5-5.0); MEAN CORPUSCULAR HEMOGLOBIN 28.8 pg (27.0-33.0); MEAN CORPUSCULAR HGB CONC 33.3 g/dl (32.0-36.5); MEAN CORPUSCULAR VOLUME 86.3 fl (80.0-96.0); MONO # 0.5 10^3/uL (0.0-0.8); MONO % 4.4 % (2.0-8.0); NEUTROPHILS # 8.5 10^3/uL (1.5-8.5); NEUTROPHILS % 82.8 % (36.0-66.0); PLATELET COUNT, AUTOMATED 265 10^3/uL (150-450); RED BLOOD COUNT 3.79 10^6/uL (4.00-5.40); WHITE BLOOD COUNT 10.2 10^3/uL (4.0-10.0)
[2023-10-03] MEDS: PANTOPRAZOLE 40MG VIAL IV ONE (13:33)
[2023-10-03] MEDS: METOCLOPRAMIDE INJ 10MG/2ML VIAL IV ONE (13:33)
[2023-10-03 13:44] LABS: CK-MB VALUE MASS < 1.0 NG/ML (<3.6); LIPASE 24 U/L (12-53)
[2023-10-03 13:49] LABS: CPK CREATINE PHOSPHOKINASE 69 U/L (34-145); MB/CK RELATIVE INDEX 1.44 (< OR =4)
[2023-10-03 13:52] LABS: HEMOGLOBIN A1c 8.5 % (4.0-6.0)
[2023-10-03 13:53] LABS: ALBUMIN 4.7 G/DL (3.2-5.2); ALKALINE PHOSPHATASE 81 U/L (46-116); ALT/SGPT 20 U/L (7.0-40); AST/SGOT 24 U/L (<34); BILIRUBIN,DIRECT 0.3 MG/DL (<0.4); BILIRUBIN,TOTAL 0.8 MG/DL (0.3-1.2); BLOOD UREA NITROGEN 27 MG/DL (9-23); CALCIUM LEVEL 10.5 MG/DL (8.5-10.1); CARBON DIOXIDE LEVEL < 10.0 MMOL/L (20-31); CHLORIDE LEVEL 95 MMOL/L (98-107); CREATININE FOR GFR 1.45 MG/DL (0.55-1.30); GLOMERULAR FILTRATION RATE 49.1 (>51); GLUCOSE, FASTING 404 MG/DL (60-100); POTASSIUM SERUM 5.2 MMOL/L (3.5-5.1); SODIUM LEVEL 130 MMOL/L (136-145); TOTAL PROTEIN 7.7 G/DL (5.7-8.2)
[2023-10-03] MEDS ORDERED: INSULIN IV RATE CHANGE DOCUMENTATION ML/HR XX SCH (14:00)
[2023-10-03] MEDS ORDERED: KCL 20MEQ in NS 1000ML 1,000 ML IV SCH (14:00)
[2023-10-03] MEDS: HumuLIN R (REGULAR) INSULIN (NovoLIN R) **100U/ML** PER UNIT IV ONE (14:15)
[2023-10-03] MEDS: INSULIN REGULAR IN 0.9 % NACL 100 UNIT in IV 1 EA IV SCH ×2 (14:16→16:03)
[2023-10-03] MEDS: MORPHINE 4 MG/ML 1ML VIAL IV ONE (14:21)
[2023-10-03] MEDS ORDERED: MULT-90 PO (14:39)
[2023-10-03] MEDS ORDERED: METO10TA3 PO (14:39)
[2023-10-03] MEDS ORDERED: HOME MED LIST COMPLETE! XX SCH (14:40)
[2023-10-03 15:45] LABS: OSMOLALITY SERUM 311 MOSM/KG (275-295)
[2023-10-03 16:00] VITALS: BP 158/95; TEMP 97.8; O2SAT 99
[2023-10-03 16:32] LABS: PHOSPHORUS LEVEL 4.7 MG/DL (2.5-4.9)
[2023-10-03 16:37] LABS: ACETONE/KETONE > 4.50 MMOL/L (0.02-0.27)
[2023-10-03] MEDS: INSULIN IV RATE CHANGE DOCUMENTATION ML/HR XX SCH (17:08)
[2023-10-03 18:00] VITALS: BP 125/73; O2SAT 100
[2023-10-03] MEDS: KCL 40MEQ IN D5/0.45NS 1000ML 1,000 ML IV SCH (18:10)
[2023-10-03 18:31] LABS: INR 1.09; PARTIAL THROMBOPLASTIN TIME 22.9 SECONDS (24.8-34.2); PROTHROMBIN TIME 13.7 SECONDS (12.5-14.5)
[2023-10-03 18:48] LABS: CALCIUM LEVEL 8.8 MG/DL (8.5-10.1); CREATININE FOR GFR 1.37 MG/DL (0.55-1.30); GLOMERULAR FILTRATION RATE 52.4 (>51); MAGNESIUM LEVEL 1.4 MG/DL (1.8-2.4); PHOSPHORUS LEVEL 2.3 MG/DL (2.5-4.9); POTASSIUM SERUM 3.8 MMOL/L (3.5-5.1)
[2023-10-03 19:00] VITALS: BP 134/79; O2SAT 99
[2023-10-03] MEDS: METOCLOPRAMIDE INJ 10MG/2ML VIAL IV PRN (19:29)
[2023-10-03] MEDS: MORPHINE 2 MG/ML 1ML VIAL IV PRN (19:30)
[2023-10-03 20:00] VITALS: BP 115/71; TEMP 98.5; O2SAT 100
[2023-10-03] MEDS: MAG SULF 1GM/100ML (MAG RUN) 1 GM in IV 1 EA IV ONE (20:08)
[2023-10-03] MEDS ORDERED: LEVEMIR (INSULIN DETEMIR) 1 UNITS/0.01ML SC SCH (21:00)
[2023-10-03 21:50] LABS: CALCIUM LEVEL 8.2 MG/DL (8.5-10.1); CREATININE FOR GFR 1.24 MG/DL (0.55-1.30); GLOMERULAR FILTRATION RATE 58.8 (>51); PHOSPHORUS LEVEL 1.9 MG/DL (2.5-4.9); POTASSIUM SERUM 4.3 MMOL/L (3.5-5.1)
[2023-10-03] MEDS ORDERED: INSULIN LISPRO (NovoLOG) PER UNIT SC ONE (23:00)
[2023-10-03] MEDS: LEVEMIR (INSULIN DETEMIR) 1 UNITS/0.01ML SC SCH (23:04)
[2023-10-03 23:08] LABS: AMPHETAMINES LEVEL URINE NEGATIVE (NEGATIVE); BARBITURATES URINE NEGATIVE (NEGATIVE); BENZODIAZEPINES URINE NEGATIVE (NEGATIVE); COCAINE METABOLITE URINE NEGATIVE (NEGATIVE); METHADONE URINE NEGATIVE (NEGATIVE); PHENCYCLIDINE URINE NEGATIVE (NEGATIVE)
[2023-10-03 23:15] LABS: CANNABINOIDS URINE POSITIVE (NEGATIVE); OPIATES URINE POSITIVE (NEGATIVE)
[2023-10-03] MEDS: POTASSIUM PHOSPHATE INJ 20 MMOL in D5W 250 ML IV ONE (23:30)
[2023-10-04] VITALS (8 sets, daily range): BP systolic 95–147; BP diastolic 59–89; TEMP 97.7–98.9; O2SAT 98–100
[2023-10-04] MEDS ORDERED: GLUCOSE 4 GM CHEW PO PRN (00:45)
[2023-10-04] MEDS ORDERED: GLUCAGON INJ 1MG VIAL SC PRN (00:45)
[2023-10-04 06:08] LABS: ALBUMIN 3.2 G/DL (3.2-5.2); ALKALINE PHOSPHATASE 56 U/L (46-116); ALT/SGPT 16 U/L (7.0-40); AST/SGOT 17 U/L (<34); BILIRUBIN,TOTAL 0.5 MG/DL (0.3-1.2); BLOOD UREA NITROGEN 20 MG/DL (9-23); CALCIUM LEVEL 8.6 MG/DL (8.5-10.1); CARBON DIOXIDE LEVEL 17 MMOL/L (20-31); CHLORIDE LEVEL 107 MMOL/L (98-107); CREATININE FOR GFR 1.21 MG/DL (0.55-1.30); GLOMERULAR FILTRATION RATE > 60.0 (>51); GLUCOSE, FASTING 72 MG/DL (60-100); SODIUM LEVEL 134 MMOL/L (136-145); TOTAL PROTEIN 5.6 G/DL (5.7-8.2)
[2023-10-04] MEDS: DEXTROSE 50% 50ML SYRINGE IV PRN (06:32)
[2023-10-04] MEDS: INSULIN LISPRO (NovoLOG) PER UNIT SC SCH ×2 (09:00→22:01)
[2023-10-04] MEDS: ENOXAPARIN 40MG/0.4ML SYRINGE (J1650 PER 10MG) SC SCH (09:00)
[2023-10-04] MEDS: PANTOPRAZOLE 40MG VIAL IV SCH (09:18)
[2023-10-04] MEDS ORDERED: SENNA 8.6 MG TAB (SENOKOT) PO PRN (10:55)
[2023-10-04] MEDS: NS 1,000 ML IV ONE (19:13)
[2023-10-04 19:53] LABS: BLOOD UREA NITROGEN 16 MG/DL (9-23); CALCIUM LEVEL 8.6 MG/DL (8.5-10.1); CARBON DIOXIDE LEVEL 11 MMOL/L (20-31); CHLORIDE LEVEL 103 MMOL/L (98-107); CREATININE FOR GFR 1.19 MG/DL (0.55-1.30); GLOMERULAR FILTRATION RATE > 60.0 (>51); GLUCOSE, FASTING 353 MG/DL (60-100); POTASSIUM SERUM 4.4 MMOL/L (3.5-5.1); SODIUM LEVEL 130 MMOL/L (136-145)
[2023-10-04] MEDS ORDERED: METOCLOPRAMIDE INJ 10MG/2ML VIAL IV ONE (20:00)
[2023-10-04] MEDS ORDERED: LEVEMIR (INSULIN DETEMIR) 1 UNITS/0.01ML SC SCH (21:00)
[2023-10-04] MEDS: LEVEMIR (INSULIN DETEMIR) 1 UNITS/0.01ML SC SCH (22:01)
[2023-10-05 02:18] LABS: BLOOD UREA NITROGEN 15 MG/DL (9-23); CALCIUM LEVEL 8.6 MG/DL (8.5-10.1); CARBON DIOXIDE LEVEL 20 MMOL/L (20-31); CHLORIDE LEVEL 106 MMOL/L (98-107); GLOMERULAR FILTRATION RATE > 60.0 (>51); GLUCOSE, FASTING 54 MG/DL (60-100); POTASSIUM SERUM 3.8 MMOL/L (3.5-5.1); SODIUM LEVEL 133 MMOL/L (136-145)
[2023-10-05 04:40] VITALS: BP 144/86; TEMP 97.9; O2SAT 100
[2023-10-05 06:45] LABS: ALBUMIN 3.3 G/DL (3.2-5.2); ALKALINE PHOSPHATASE 58 U/L (46-116); ALT/SGPT 17 U/L (7.0-40); AST/SGOT 17 U/L (<34); BILIRUBIN,TOTAL 0.5 MG/DL (0.3-1.2); BLOOD UREA NITROGEN 12 MG/DL (9-23); CALCIUM LEVEL 8.8 MG/DL (8.5-10.1); CARBON DIOXIDE LEVEL 18 MMOL/L (20-31); CHLORIDE LEVEL 107 MMOL/L (98-107); CREATININE FOR GFR 1.16 MG/DL (0.55-1.30); GLOMERULAR FILTRATION RATE > 60.0 (>51); GLUCOSE, FASTING 40 MG/DL (60-100); POTASSIUM SERUM 3.9 MMOL/L (3.5-5.1); SODIUM LEVEL 136 MMOL/L (136-145); TOTAL PROTEIN 5.6 G/DL (5.7-8.2)
[2023-10-05 06:48] LABS: BLOOD UREA NITROGEN 13 MG/DL (9-23); CALCIUM LEVEL 8.8 MG/DL (8.5-10.1); CARBON DIOXIDE LEVEL 18 MMOL/L (20-31); CHLORIDE LEVEL 105 MMOL/L (98-107); CREATININE FOR GFR 1.17 MG/DL (0.55-1.30); GLOMERULAR FILTRATION RATE > 60.0 (>51); GLUCOSE, FASTING 40 MG/DL (60-100); POTASSIUM SERUM 3.9 MMOL/L (3.5-5.1); SODIUM LEVEL 134 MMOL/L (136-145)
[2023-10-05] MEDS: LEVEMIR (INSULIN DETEMIR) 1 UNITS/0.01ML SC SCH (07:33)
[2023-10-05] MEDS: DOCUSATE SODIUM 100MG CAPSULE PO SCH (07:59)
[2023-10-05] MEDS: MIRALAX *UNIT DOSE* 17GM PACKET PO SCH (08:00)
[2023-10-05 12:00] VITALS: BP 138/83; TEMP 97.9; O2SAT 99
[2023-10-05 13:47] LABS: BLOOD UREA NITROGEN 12 MG/DL (9-23); CALCIUM LEVEL 9.1 MG/DL (8.5-10.1); CARBON DIOXIDE LEVEL 21 MMOL/L (20-31); CHLORIDE LEVEL 102 MMOL/L (98-107); GLOMERULAR FILTRATION RATE > 60.0 (>51); GLUCOSE, FASTING 123 MG/DL (60-100); POTASSIUM SERUM 3.9 MMOL/L (3.5-5.1); SODIUM LEVEL 131 MMOL/L (136-145)
[2023-10-05] MEDS ORDERED: ADME100I2 SC (16:19)
[2023-10-05] MEDS ORDERED: INSUDET SC (16:19)
[2023-10-05] MEDS ORDERED: INSUHUMDS SC (16:19)
[2023-10-05] MEDS ORDERED: REGL10TA6 PO (16:20)
[2023-10-05] MEDS: INSULIN LISPRO (NovoLOG) PER UNIT SC SCH ×2 (17:00)
[2023-10-05] MEDS ORDERED: LEVEMIR (INSULIN DETEMIR) 1 UNITS/0.01ML SC SCH (21:00)
== END 2023-10-05 18:05 | disposition home or self-care (01) | DRG 420 ==
LOC: EDBD 12:45 → M ED 12:45 → M ED INP 14:47 → M ICU 15:45 → M MSPAV 10-04 15:30
PROVIDERS: ADMIT Internal Medicine Pulmonary Disease; ATTEND General Practice
DX: E10.10 Type 1 diabetes mellitus with ketoacidosis without coma (principal); E10.649 Type 1 diabetes mellitus with hypoglycemia without coma; E10.22 Type 1 diabetes mellitus with diabetic chronic kidney disease; K31.84 Gastroparesis; E87.5 Hyperkalemia; E10.43 Type 1 diabetes mellitus with diabetic autonomic (poly)neuropathy; N18.30 Chronic kidney disease, stage 3 unspecified; E10.65 Type 1 diabetes mellitus with hyperglycemia; F12.188 Cannabis abuse with other cannabis-induced disorder; R11.2 Nausea with vomiting, unspecified; Z87.891 Personal history of nicotine dependence; Z79.4 Long term (current) use of insulin; Z79.899 Other long term (current) drug therapy

== ENCOUNTER 2023-11-01 14:46 | Inpatient (IN) | payer MEDICAID, OTHER ==
[~2023-11-01] VITALS: Ht 170.2 cm; Wt 63.4 kg
[2023-11-01 15:34] LABS: VENOUS BASE EXCESS -7.9 (-2.0-2.0); VENOUS O2 SATURATION 68.8 % (60.0-80.0); VENOUS PARTIAL PRESSURE CO2 28.2 mmHg (38.0-50.0); VENOUS PARTIAL PRESSURE O2 38.2 mmHg (30.0-50.0); VENOUS PH 7.371 UNITS (7.330-7.430); VENOUS STANDARD HCO3 17.6 MMOL/L; VENOUS TOTAL CO2 16.8 MMOL/L (24.0-28.0)
[2023-11-01 15:38] LABS: BASO % 0.4 % (0.0-1.0); EOS % 0.1 % (0.0-3.0); HEMATOCRIT 34.5 % (36.0-47.0); LYMPH # 0.7 10^3/uL (1.5-5.0); LYMPH % 7.2 % (24.0-44.0); MEAN CORPUSCULAR HEMOGLOBIN 29.8 pg (27.0-33.0); MEAN CORPUSCULAR HGB CONC 34.8 g/dl (32.0-36.5); MEAN CORPUSCULAR VOLUME 85.6 fl (80.0-96.0); MONO # 0.5 10^3/uL (0.0-0.8); MONO % 4.8 % (2.0-8.0); NEUTROPHILS # 8.8 10^3/uL (1.5-8.5); PLATELET COUNT, AUTOMATED 330 10^3/uL (150-450); RED BLOOD COUNT 4.03 10^6/uL (4.00-5.40); WHITE BLOOD COUNT 10.2 10^3/uL (4.0-10.0)
[2023-11-01 15:53] LABS: HEMOGLOBIN A1c 8.6 % (4.0-6.0)
[2023-11-01 15:55] LABS: OSMOLALITY SERUM 326 MOSM/KG (275-295)
[2023-11-01] MEDS ORDERED: INSULIN IV RATE CHANGE DOCUMENTATION ML/HR XX SCH (16:00)
[2023-11-01 16:11] LABS: LIPASE 27 U/L (12-53)
[2023-11-01 16:16] LABS: ACETONE/KETONE > 4.50 MMOL/L (0.02-0.27); ALBUMIN 4.7 G/DL (3.2-5.2); ALKALINE PHOSPHATASE 89 U/L (46-116); ALT/SGPT 32 U/L (7.0-40); AST/SGOT 34 U/L (<34); BILIRUBIN,DIRECT 0.4 MG/DL (<0.4); BILIRUBIN,TOTAL 1.4 MG/DL (0.3-1.2); BLOOD UREA NITROGEN 62 MG/DL (9-23); CALCIUM LEVEL 10.1 MG/DL (8.5-10.1); CARBON DIOXIDE LEVEL 13 MMOL/L (20-31); CHLORIDE LEVEL 87 MMOL/L (98-107); CREATININE FOR GFR 1.84 MG/DL (0.55-1.30); GLOMERULAR FILTRATION RATE 37.3 (>51); GLUCOSE, FASTING 499 MG/DL (60-100); MAGNESIUM LEVEL 2.3 MG/DL (1.8-2.4); POTASSIUM SERUM 4.7 MMOL/L (3.5-5.1); SODIUM LEVEL 127 MMOL/L (136-145); TOTAL PROTEIN 7.8 G/DL (5.7-8.2)
[2023-11-01] MEDS: MORPHINE 2 MG/ML 1ML VIAL IV ONE (16:32)
[2023-11-01] MEDS: METOCLOPRAMIDE INJ 10MG/2ML VIAL IV ONE (16:32)
[2023-11-01] MEDS: HumuLIN R (REGULAR) INSULIN (NovoLIN R) **100U/ML** PER UNIT IV ONE (16:44)
[2023-11-01] MEDS: INSULIN REGULAR IN 0.9 % NACL 100 UNIT in IV 1 EA IV SCH ×2 (16:45→18:05)
[2023-11-01] MEDS: NS 1,000 ML IV ONE ×2 (16:46→18:38)
[2023-11-01] MEDS: LR 1,000 ML IV ONE (17:15)
[2023-11-01] MEDS: LR 1,000 ML IV SCH (17:20)
[2023-11-01] MEDS ORDERED: LANTINJ4 SC (17:31)
[2023-11-01] MEDS ORDERED: METO10TA2 PO (17:31)
[2023-11-01] MEDS ORDERED: HOME MED LIST COMPLETE! XX SCH (17:35)
[2023-11-01] MEDS ORDERED: NS 1,000 ML IV SCH (18:30)
[2023-11-01] MEDS: NS 1,000 ML IV SCH (19:20)
[2023-11-01] MEDS: PANTOPRAZOLE 40MG VIAL IV SCH (19:21)
[2023-11-01 20:00] VITALS: BP 140/83; TEMP 99.2; O2SAT 100
[2023-11-01] MEDS: INSULIN IV RATE CHANGE DOCUMENTATION ML/HR XX SCH (20:01)
[2023-11-01 21:00] VITALS: BP 112/72; O2SAT 98
[2023-11-01] MEDS: MORPHINE 2 MG/ML 1ML VIAL IV PRN (21:04)
[2023-11-01 21:36] LABS: VENOUS BASE EXCESS -4.4 (-2.0-2.0); VENOUS HCO3 21.4 MMOL/L (23.0-27.0); VENOUS PARTIAL PRESSURE CO2 42.3 mmHg (38.0-50.0); VENOUS PARTIAL PRESSURE O2 45.6 mmHg (30.0-50.0); VENOUS PH 7.322 UNITS (7.330-7.430); VENOUS STANDARD HCO3 20.4 MMOL/L; VENOUS TOTAL CO2 22.7 MMOL/L (24.0-28.0)
[2023-11-01 22:00] VITALS: BP 108/65; O2SAT 99
[2023-11-01 22:07] LABS: CALCIUM LEVEL 8.3 MG/DL (8.5-10.1); CREATININE FOR GFR 1.71 MG/DL (0.55-1.30); GLOMERULAR FILTRATION RATE 40.6 (>51); MAGNESIUM LEVEL 1.8 MG/DL (1.8-2.4); POTASSIUM SERUM 3.4 MMOL/L (3.5-5.1)
[2023-11-01] MEDS ORDERED: DEXTROSE 50% 50ML SYRINGE As Ordered ONE (22:41)
[2023-11-01] MEDS ORDERED: GLUCAGON INJ 1MG VIAL SC PRN (22:45)
[2023-11-01] MEDS ORDERED: GLUCOSE 4 GM CHEW PO PRN (22:45)
[2023-11-01] MEDS: DEXTROSE 50% 50ML SYRINGE IV PRN (22:52)
[2023-11-01] MEDS: POTASSIUM CHLORIDE 10MEQ SR TABLET PO ONE (22:53)
[2023-11-01 23:04] VITALS: BP 140/72; O2SAT 100
[2023-11-01] MEDS: METOCLOPRAMIDE INJ 10MG/2ML VIAL IV PRN (23:19)
[2023-11-01 23:44] LABS: AMPHETAMINES LEVEL URINE NEGATIVE (NEGATIVE); BARBITURATES URINE NEGATIVE (NEGATIVE); BENZODIAZEPINES URINE NEGATIVE (NEGATIVE); COCAINE METABOLITE URINE NEGATIVE (NEGATIVE); METHADONE URINE NEGATIVE (NEGATIVE); PHENCYCLIDINE URINE NEGATIVE (NEGATIVE)
[2023-11-01 23:46] LABS: CANNABINOIDS URINE POSITIVE (NEGATIVE); OPIATES URINE POSITIVE (NEGATIVE)
[2023-11-02] VITALS (14 sets, daily range): BP systolic 98–146; BP diastolic 56–86; TEMP 97.8–98.6; O2SAT 95–100
[2023-11-02 05:47] LABS: BASO % 0.5 % (0.0-1.0); EOS % 0.2 % (0.0-3.0); HEMATOCRIT 27.2 % (36.0-47.0); LYMPH # 1.9 10^3/uL (1.5-5.0); LYMPH % 21.9 % (24.0-44.0); MEAN CORPUSCULAR HEMOGLOBIN 29.1 pg (27.0-33.0); MEAN CORPUSCULAR HGB CONC 33.8 g/dl (32.0-36.5); MEAN CORPUSCULAR VOLUME 86.1 fl (80.0-96.0); MONO # 0.7 10^3/uL (0.0-0.8); MONO % 8.5 % (2.0-8.0); NEUTROPHILS % 68.7 % (36.0-66.0); PLATELET COUNT, AUTOMATED 235 10^3/uL (150-450); RED BLOOD COUNT 3.16 10^6/uL (4.00-5.40); WHITE BLOOD COUNT 8.7 10^3/uL (4.0-10.0)
[2023-11-02 06:00] LABS: HEMOGLOBIN 9.2 g/dl (12.0-15.5)
[2023-11-02 06:19] LABS: ALBUMIN 3.5 G/DL (3.2-5.2); BILIRUBIN,TOTAL 1.1 MG/DL (0.3-1.2); CALCIUM LEVEL 8.8 MG/DL (8.5-10.1); CREATININE FOR GFR 1.51 MG/DL (0.55-1.30); GLOMERULAR FILTRATION RATE 46.9 (>51); PHOSPHORUS LEVEL 3.5 MG/DL (2.5-4.9); POTASSIUM SERUM 4.5 MMOL/L (3.5-5.1); TOTAL PROTEIN 5.8 G/DL (5.7-8.2)
[2023-11-02] MEDS: ENOXAPARIN 40MG/0.4ML SYRINGE (J1650 PER 10MG) SC SCH (08:01)
[2023-11-02] MEDS: LEVEMIR (INSULIN DETEMIR) 1 UNITS/0.01ML SC ONE (08:01)
[2023-11-02] MEDS: INSULIN LISPRO (NovoLOG) PER UNIT SC SCH ×2 (08:02→20:31)
[2023-11-02] MEDS: NS 1,000 ML IV ONE (08:03)
[2023-11-02] MEDS ORDERED: PROMETHAZINE 25MG/ML 1ML VIAL IV PRN (08:30)
[2023-11-02] MEDS: NS 1,000 ML IV SCH (10:22)
[2023-11-02] MEDS: METOCLOPRAMIDE INJ 10MG/2ML VIAL IV SCH (15:28)
[2023-11-02] MEDS ORDERED: INSULIN LISPRO (NovoLOG) PER UNIT SC SCH (21:00)
[2023-11-03 04:17] VITALS: BP 125/74; TEMP 98.3; O2SAT 98
[2023-11-03] MEDS: ONDANSETRON 4MG 2ML VIAL IV PRN (05:51)
[2023-11-03 07:29] LABS: HEMATOCRIT 26.8 % (36.0-47.0); HEMOGLOBIN 8.9 g/dl (12.0-15.5); MEAN CORPUSCULAR HEMOGLOBIN 28.8 pg (27.0-33.0); MEAN CORPUSCULAR HGB CONC 33.2 g/dl (32.0-36.5); MEAN CORPUSCULAR VOLUME 86.7 fl (80.0-96.0); PLATELET COUNT, AUTOMATED 209 10^3/uL (150-450); RED BLOOD COUNT 3.09 10^6/uL (4.00-5.40); WHITE BLOOD COUNT 4.6 10^3/uL (4.0-10.0)
[2023-11-03] MEDS: INSULIN LISPRO (NovoLOG) PER UNIT SC SCH ×2 (07:30→13:47)
[2023-11-03 07:57] LABS: ALBUMIN 3.3 G/DL (3.2-5.2); ALKALINE PHOSPHATASE 61 U/L (46-116); ALT/SGPT 20 U/L (7.0-40); AST/SGOT 16 U/L (<34); BLOOD UREA NITROGEN 24 MG/DL (9-23); CALCIUM LEVEL 8.7 MG/DL (8.5-10.1); CARBON DIOXIDE LEVEL 20 MMOL/L (20-31); CHLORIDE LEVEL 106 MMOL/L (98-107); GLOMERULAR FILTRATION RATE > 60.0 (>51); GLUCOSE, FASTING 185 MG/DL (60-100); MAGNESIUM LEVEL 1.4 MG/DL (1.8-2.4); PHOSPHORUS LEVEL 2.3 MG/DL (2.5-4.9); POTASSIUM SERUM 3.8 MMOL/L (3.5-5.1); SODIUM LEVEL 138 MMOL/L (136-145); TOTAL PROTEIN 5.5 G/DL (5.7-8.2)
[2023-11-03] MEDS: NEUTRA-PHOS 1.5 GM PACKET PO SCH (09:26)
[2023-11-03] MEDS: MAGNESIUM OXIDE 400MG TAB (MAG-OX) PO SCH (09:27)
[2023-11-03] MEDS: MAG SULF 1GM/100ML (MAG RUN) 1 GM in IV 1 EA IV ONE (09:27)
[2023-11-03] MEDS: LEVEMIR (INSULIN DETEMIR) 1 UNITS/0.01ML SC SCH (09:28)
[2023-11-03] MEDS ORDERED: INSULIN LISPRO (NovoLOG) PER UNIT SC SCH (12:00)
[2023-11-03 12:01] VITALS: BP 146/84; TEMP 98.3; O2SAT 100
[2023-11-03] MEDS ORDERED: LANTINJ4 SC ×2 (16:37→16:40)
[2023-11-03] MEDS ORDERED: ADME100I SC (16:37)
== END 2023-11-03 17:00 | disposition home or self-care (01) | DRG 420 ==
LOC: M ED 14:46 → M ED INP 17:15 → M ICU 19:54 → M MS4PR 11-02 22:20
PROVIDERS: ADMIT Internal Medicine Critical Care Medicine; ATTEND Internal Medicine Nephrology
DX: E10.10 Type 1 diabetes mellitus with ketoacidosis without coma (principal); K31.84 Gastroparesis; N17.9 Acute kidney failure, unspecified; E87.5 Hyperkalemia; E83.42 Hypomagnesemia; E83.39 Other disorders of phosphorus metabolism; E10.43 Type 1 diabetes mellitus with diabetic autonomic (poly)neuropathy; N18.30 Chronic kidney disease, stage 3 unspecified; E10.22 Type 1 diabetes mellitus with diabetic chronic kidney disease; K76.0 Fatty (change of) liver, not elsewhere classified; I48.0 Paroxysmal atrial fibrillation; F12.188 Cannabis abuse with other cannabis-induced disorder; R11.10 Vomiting, unspecified; D64.9 Anemia, unspecified; E10.65 Type 1 diabetes mellitus with hyperglycemia; K21.9 Gastro-esophageal reflux disease without esophagitis; K44.9 Diaphragmatic hernia without obstruction or gangrene; E73.9 Lactose intolerance, unspecified; Z79.899 Other long term (current) drug therapy; Z79.4 Long term (current) use of insulin; Z91.018 Allergy to other foods

== ENCOUNTER 2023-12-04 21:13 | Inpatient (IN) | payer OTHER, MEDICAID ==
[~2023-12-04] VITALS: Ht 162.6 cm; Wt 59.2 kg
[~2023-12-04 21:13] MED LIST changes: +LANTINJ4 SC
[2023-12-05] VITALS (9 sets, daily range): BP systolic 102–144; BP diastolic 64–96; TEMP 97.3–98.8; O2SAT 100
[2023-12-05 01:19] LABS: BASO % 0.4 % (0.0-1.0); HEMATOCRIT 32.5 % (36.0-47.0); HEMOGLOBIN 11.1 g/dl (12.0-15.5); LYMPH # 0.8 10^3/uL (1.5-5.0); LYMPH % 8.6 % (24.0-44.0); MEAN CORPUSCULAR HEMOGLOBIN 29.3 pg (27.0-33.0); MEAN CORPUSCULAR HGB CONC 34.2 g/dl (32.0-36.5); MEAN CORPUSCULAR VOLUME 85.8 fl (80.0-96.0); MONO # 0.5 10^3/uL (0.0-0.8); MONO % 5.5 % (2.0-8.0); NEUTROPHILS % 85.1 % (36.0-66.0); PLATELET COUNT, AUTOMATED 255 10^3/uL (150-450); RED BLOOD COUNT 3.79 10^6/uL (4.00-5.40); WHITE BLOOD COUNT 9.5 10^3/uL (4.0-10.0)
[2023-12-05 01:49] LABS: LIPASE 25 U/L (12-53)
[2023-12-05 01:51] LABS: ALBUMIN 4.4 G/DL (3.2-5.2); ALKALINE PHOSPHATASE 77 U/L (46-116); ALT/SGPT 19 U/L (7.0-40); AST/SGOT 19 U/L (<34); BILIRUBIN,DIRECT 0.4 MG/DL (<0.4); BILIRUBIN,TOTAL 1.3 MG/DL (0.3-1.2); BLOOD UREA NITROGEN 64 MG/DL (9-23); CALCIUM LEVEL 9.5 MG/DL (8.5-10.1); CARBON DIOXIDE LEVEL 19 MMOL/L (20-31); CHLORIDE LEVEL 95 MMOL/L (98-107); CREATININE FOR GFR 2.08 MG/DL (0.55-1.30); GLOMERULAR FILTRATION RATE 32.4 (>51); GLUCOSE, FASTING 305 MG/DL (60-100); POTASSIUM SERUM 3.8 MMOL/L (3.5-5.1); SODIUM LEVEL 132 MMOL/L (136-145); TOTAL PROTEIN 7.5 G/DL (5.7-8.2)
[2023-12-05 01:59] LABS: HCG, SERUM QUALITATIVE NEGATIVE (NEGATIVE)
[2023-12-05] MEDS: METOCLOPRAMIDE INJ 10MG/2ML VIAL IV ONE (02:35)
[2023-12-05] MEDS: HumuLIN R (REGULAR) INSULIN (NovoLIN R) **100U/ML** PER UNIT IV ONE (02:35)
[2023-12-05] MEDS: NS 1,000 ML IV ONE (02:35)
[2023-12-05] MEDS: MORPHINE 4 MG/ML 1ML VIAL IV ONE (03:10)
[2023-12-05 03:26] LABS: VENOUS BASE EXCESS -4.9 (-2.0-2.0); VENOUS O2 SATURATION 89.3 % (60.0-80.0); VENOUS PARTIAL PRESSURE CO2 32.1 mmHg (38.0-50.0); VENOUS PARTIAL PRESSURE O2 61.2 mmHg (30.0-50.0); VENOUS PH 7.391 UNITS (7.330-7.430); VENOUS STANDARD HCO3 20.2 MMOL/L
[2023-12-05] MEDS: KCL 20MEQ in NS 1000ML 1,000 ML IV SCH (04:05)
[2023-12-05] MEDS ORDERED: MOM 30ML SUSPENSION UDC PO PRN (04:45)
[2023-12-05] MEDS: INSULIN REGULAR IN 0.9 % NACL 100 UNIT in IV 1 EA IV SCH (04:46)
[2023-12-05] MEDS ORDERED: INSULIN REGULAR IN 0.9 % NACL 100 UNIT in IV 1 EA IV SCH (05:30)
[2023-12-05 05:47] LABS: VENOUS BASE EXCESS -2.4 (-2.0-2.0); VENOUS HCO3 22.3 MMOL/L (23.0-27.0); VENOUS O2 SATURATION 98.5 % (60.0-80.0); VENOUS PARTIAL PRESSURE CO2 38.2 mmHg (38.0-50.0); VENOUS PH 7.384 UNITS (7.330-7.430); VENOUS STANDARD HCO3 22.5 MMOL/L; VENOUS TOTAL CO2 23.5 MMOL/L (24.0-28.0)
[2023-12-05 05:50] LABS: HEMATOCRIT 28.8 % (36.0-47.0); MEAN CORPUSCULAR HEMOGLOBIN 29.7 pg (27.0-33.0); MEAN CORPUSCULAR HGB CONC 34.7 g/dl (32.0-36.5); MEAN CORPUSCULAR VOLUME 85.5 fl (80.0-96.0); PLATELET COUNT, AUTOMATED 240 10^3/uL (150-450); RED BLOOD COUNT 3.37 10^6/uL (4.00-5.40)
[2023-12-05] MEDS: HEPARIN SOD (PORCINE) 5000UNITS/ML 1ML VIAL/SYRINGE SC SCH (06:00)
[2023-12-05] MEDS ORDERED: POTASSIUM CHLORIDE INJ 20 MEQ in LR 1,000 ML IV SCH (06:00)
[2023-12-05] MEDS ORDERED: INSUHUMDS INJ (06:07)
[2023-12-05] MEDS ORDERED: INSUDET INJ (06:07)
[2023-12-05] MEDS ORDERED: HOME MED LIST COMPLETE! XX SCH (06:10)
[2023-12-05 06:17] LABS: CALCIUM LEVEL 8.9 MG/DL (8.5-10.1); CREATININE FOR GFR 2.33 MG/DL (0.55-1.30); GLOMERULAR FILTRATION RATE 28.4 (>51); PHOSPHORUS LEVEL 5.7 MG/DL (2.5-4.9); POTASSIUM SERUM 3.1 MMOL/L (3.5-5.1)
[2023-12-05] MEDS: INSULIN IV RATE CHANGE DOCUMENTATION ML/HR XX SCH ×2 (06:23→08:46)
[2023-12-05 06:24] LABS: ALBUMIN 3.9 G/DL (3.2-5.2); BILIRUBIN,TOTAL 0.9 MG/DL (0.3-1.2); CALCIUM LEVEL 8.9 MG/DL (8.5-10.1); CREATININE FOR GFR 2.32 MG/DL (0.55-1.30); GLOMERULAR FILTRATION RATE 28.5 (>51); TOTAL PROTEIN 6.8 G/DL (5.7-8.2)
[2023-12-05 06:40] LABS: HEMOGLOBIN A1c 8.2 % (4.0-6.0)
[2023-12-05 07:40] LABS: VENOUS HCO3 24.5 MMOL/L (23.0-27.0); VENOUS O2 SATURATION 99.4 % (60.0-80.0); VENOUS PARTIAL PRESSURE CO2 34.8 mmHg (38.0-50.0); VENOUS PARTIAL PRESSURE O2 227.8 mmHg (30.0-50.0); VENOUS PH 7.465 UNITS (7.330-7.430); VENOUS STANDARD HCO3 25.4 MMOL/L; VENOUS TOTAL CO2 25.5 MMOL/L (24.0-28.0)
[2023-12-05] MEDS: KCL 40MEQ IN D5/0.45NS 1000ML 1,000 ML IV SCH (07:48)
[2023-12-05] MEDS: DEXTROSE 50% 50ML SYRINGE IV STA (07:59)
[2023-12-05 08:07] LABS: CALCIUM LEVEL 8.9 MG/DL (8.5-10.1); CREATININE FOR GFR 2.19 MG/DL (0.55-1.30); GLOMERULAR FILTRATION RATE 30.5 (>51); PHOSPHORUS LEVEL 4.7 MG/DL (2.5-4.9); POTASSIUM SERUM 3.2 MMOL/L (3.5-5.1)
[2023-12-05] MEDS ORDERED: KCL 10MEQ/100ML SWI (KRUN) 10 MEQ in IV 1 EA IV SCH (08:35)
[2023-12-05] MEDS: LEVEMIR (INSULIN DETEMIR) 1 UNITS/0.01ML SC SCH (09:15)
[2023-12-05] MEDS: MORPHINE 2 MG/ML 1ML VIAL IV PRN (09:17)
[2023-12-05] MEDS: METOCLOPRAMIDE INJ 10MG/2ML VIAL IV SCH (09:17)
[2023-12-05] MEDS: POTASSIUM CHLORIDE 10MEQ SR TABLET PO ONE (10:09)
[2023-12-05] MEDS ORDERED: GLUCOSE 4 GM CHEW PO PRN (10:30)
[2023-12-05] MEDS ORDERED: GLUCAGON INJ 1MG VIAL SC PRN (10:30)
[2023-12-05] MEDS: INSULIN LISPRO (NovoLOG) PER UNIT SC SCH ×2 (13:35→20:34)
[2023-12-05 15:53] LABS: CALCIUM LEVEL 8.6 MG/DL (8.5-10.1); CREATININE FOR GFR 1.81 MG/DL (0.55-1.30); POTASSIUM SERUM 4.3 MMOL/L (3.5-5.1)
[2023-12-06 04:00] VITALS: BP 138/86; TEMP 98; O2SAT 98
[2023-12-06] MEDS: DEXTROSE 50% 50ML SYRINGE IV PRN (07:45)
[2023-12-06 08:00] VITALS: BP 149/94; TEMP 97.3; O2SAT 100
[2023-12-06 08:08] LABS: BASO # 0.1 10^3/uL (0.0-0.2); BASO % 0.8 % (0.0-1.0); EOS # 0.1 10^3/uL (0.0-0.5); EOS % 1.3 % (0.0-3.0); HEMATOCRIT 29.5 % (36.0-47.0); LYMPH # 2.2 10^3/uL (1.5-5.0); LYMPH % 36.4 % (24.0-44.0); MEAN CORPUSCULAR HEMOGLOBIN 29.7 pg (27.0-33.0); MEAN CORPUSCULAR HGB CONC 33.9 g/dl (32.0-36.5); MEAN CORPUSCULAR VOLUME 87.5 fl (80.0-96.0); MONO # 0.5 10^3/uL (0.0-0.8); MONO % 8.3 % (2.0-8.0); NEUTROPHILS # 3.2 10^3/uL (1.5-8.5); PLATELET COUNT, AUTOMATED 192 10^3/uL (150-450); RED BLOOD COUNT 3.37 10^6/uL (4.00-5.40); WHITE BLOOD COUNT 6.1 10^3/uL (4.0-10.0)
[2023-12-06] MEDS: NS 1,000 ML IV SCH (08:12)
[2023-12-06 08:33] LABS: ACETONE/KETONE 1.33 MMOL/L (0.02-0.27)
[2023-12-06 08:38] LABS: CALCIUM LEVEL 9.3 MG/DL (8.5-10.1); CREATININE FOR GFR 1.53 MG/DL (0.55-1.30); GLOMERULAR FILTRATION RATE 46.2 (>51); MAGNESIUM LEVEL 1.8 MG/DL (1.8-2.4); PHOSPHORUS LEVEL 3.3 MG/DL (2.5-4.9); POTASSIUM SERUM 4.1 MMOL/L (3.5-5.1)
[2023-12-06] MEDS: PROMETHAZINE 25MG/ML 1ML VIAL IM ONE (10:27)
[2023-12-06] MEDS: ACETAMINOPHEN *IV* 1,000 MG in IV 1 EA IV ONE (11:17)
[2023-12-06 12:00] VITALS: BP 131/72; TEMP 98.4; O2SAT 100
[2023-12-06] MEDS: INSULIN LISPRO (NovoLOG) PER UNIT SC SCH ×2 (12:00→21:00)
[2023-12-06] MEDS: METOCLOPRAMIDE INJ 10MG/2ML VIAL IV ONE (12:56)
[2023-12-06] MEDS: HumuLIN R (REGULAR) INSULIN (NovoLIN R) **100U/ML** PER UNIT IV STA (15:32)
[2023-12-06 16:00] VITALS: BP 114/76; TEMP 98.4; O2SAT 100
[2023-12-06] MEDS: METOCLOPRAMIDE INJ 10MG/2ML VIAL IV SCH (17:40)
[2023-12-06 18:21] LABS: CALCIUM LEVEL 8.9 MG/DL (8.5-10.1); CREATININE FOR GFR 1.4 MG/DL (0.55-1.30); GLOMERULAR FILTRATION RATE 51.1 (>51)
[2023-12-06 19:51] VITALS: BP 141/81; TEMP 98.8; O2SAT 100
[2023-12-06] MEDS: ONDANSETRON 4MG 2ML VIAL IV ONE (20:19)
[2023-12-06] MEDS: MORPHINE 2 MG/ML 1ML VIAL IV ONE (20:19)
[2023-12-07 04:16] VITALS: BP 138/88; TEMP 98.6; O2SAT 100
[2023-12-07 05:30] VITALS: BP 182/119; TEMP 97.9; O2SAT 100
[2023-12-07] MEDS: PROMETHAZINE 25MG/ML 1ML VIAL IV ONE (06:17)
[2023-12-07] MEDS: INSULIN LISPRO (NovoLOG) PER UNIT SC SCH (07:30)
[2023-12-07] MEDS: METOCLOPRAMIDE INJ 10MG/2ML VIAL IV SCH (07:42)
[2023-12-07 07:44] LABS: CALCIUM LEVEL 9.1 MG/DL (8.5-10.1); CREATININE FOR GFR 1.35 MG/DL (0.55-1.30); GLOMERULAR FILTRATION RATE 53.3 (>51); MAGNESIUM LEVEL 1.6 MG/DL (1.8-2.4); POTASSIUM SERUM 4.1 MMOL/L (3.5-5.1)
[2023-12-07] MEDS: INSULIN LISPRO (NovoLOG) PER UNIT SC ONE (09:44)
[2023-12-07] MEDS ORDERED: MORPHINE 2 MG/ML 1ML VIAL IV PRN (10:10)
[2023-12-07 12:00] VITALS: BP 130/90; TEMP 98.1; O2SAT 99
[2023-12-07] MEDS: MAG SULF 1GM/100ML (MAG RUN) 1 GM in IV 1 EA IV SCH (14:45)
[2023-12-07] MEDS ORDERED: MAGN400C PO (16:28)
[2023-12-07] MEDS ORDERED: AMITRIPTYLINE 25MG TABLET PO SCH (21:00)
== END 2023-12-07 17:35 | disposition home or self-care (01) | DRG 420 ==
LOC: M ED 21:13 → M ED INP 12-05 04:43 → M ICU 12-05 06:51 → M MSPAV 12-07 05:29
PROVIDERS: ADMIT Internal Medicine Pulmonary Disease; ATTEND Student in an Organized Health Care Education/Training Program
DX: E10.10 Type 1 diabetes mellitus with ketoacidosis without coma (principal); K31.84 Gastroparesis; N17.9 Acute kidney failure, unspecified; I48.0 Paroxysmal atrial fibrillation; E83.42 Hypomagnesemia; E10.22 Type 1 diabetes mellitus with diabetic chronic kidney disease; N18.30 Chronic kidney disease, stage 3 unspecified; E10.43 Type 1 diabetes mellitus with diabetic autonomic (poly)neuropathy; F12.188 Cannabis abuse with other cannabis-induced disorder; R11.2 Nausea with vomiting, unspecified; E10.65 Type 1 diabetes mellitus with hyperglycemia; E87.6 Hypokalemia; D63.1 Anemia in chronic kidney disease; Z86.73 Personal history of transient ischemic attack (TIA), and cerebral infarction without residual deficits; Z79.4 Long term (current) use of insulin; Z79.899 Other long term (current) drug therapy; Z87.891 Personal history of nicotine dependence

== ENCOUNTER 2024-01-06 16:50 | Inpatient (IN) | payer MEDICAID, OTHER ==
[~2024-01-06] VITALS: Ht 170.2 cm; Wt 61.4 kg
[~2024-01-06 16:50] MED LIST changes: -ERYT1CAP2 PO; +ERYT250C50 PO; +INSUDET INJ; +INSUHUMDS INJ; +MAGN400C PO
[2024-01-06 17:29] LABS: BASO % 0.4 % (0.0-1.0); EOS % 0.1 % (0.0-3.0); HEMATOCRIT 29.9 % (36.0-47.0); HEMOGLOBIN 10.2 g/dl (12.0-15.5); LYMPH # 1.6 10^3/uL (1.5-5.0); LYMPH % 15.1 % (24.0-44.0); MEAN CORPUSCULAR HEMOGLOBIN 29.2 pg (27.0-33.0); MEAN CORPUSCULAR HGB CONC 34.1 g/dl (32.0-36.5); MEAN CORPUSCULAR VOLUME 85.7 fl (80.0-96.0); MONO # 0.5 10^3/uL (0.0-0.8); NEUTROPHILS # 8.3 10^3/uL (1.5-8.5); NEUTROPHILS % 79.1 % (36.0-66.0); PLATELET COUNT, AUTOMATED 225 10^3/uL (150-450); RED BLOOD COUNT 3.49 10^6/uL (4.00-5.40); WHITE BLOOD COUNT 10.4 10^3/uL (4.0-10.0)
[2024-01-06 18:06] LABS: ALBUMIN 4.4 G/DL (3.2-5.2); ALKALINE PHOSPHATASE 62 U/L (46-116); ALT/SGPT 17 U/L (7.0-40); AST/SGOT 46 U/L (<34); BILIRUBIN,DIRECT 0.1 MG/DL (<0.4); BILIRUBIN,TOTAL 0.7 MG/DL (0.3-1.2); LIPASE 41 U/L (12-53); TOTAL PROTEIN 7.4 G/DL (5.7-8.2)
[2024-01-06] MEDS ORDERED: VENL37TA PO (18:48)
[2024-01-06] MEDS ORDERED: HOME MED LIST COMPLETE! XX SCH (18:50)
[2024-01-06 19:14] LABS: VENOUS BASE EXCESS -6.3 (-2.0-2.0); VENOUS HCO3 15.9 MMOL/L (23.0-27.0); VENOUS O2 SATURATION 97.4 % (60.0-80.0); VENOUS PARTIAL PRESSURE CO2 22.6 mmHg (38.0-50.0); VENOUS PARTIAL PRESSURE O2 95.3 mmHg (30.0-50.0); VENOUS PH 7.464 UNITS (7.330-7.430); VENOUS STANDARD HCO3 19.3 MMOL/L; VENOUS TOTAL CO2 16.6 MMOL/L (24.0-28.0)
[2024-01-06] MEDS: METOCLOPRAMIDE INJ 10MG/2ML VIAL IV ONE (19:14)
[2024-01-06] MEDS: NS 1,000 ML IV ONE (19:14)
[2024-01-06] MEDS: HALOPERIDOL LACTATE 5MG/ML VIAL IV ONE (19:14)
[2024-01-06 19:21] LABS: BLOOD UREA NITROGEN 24 MG/DL (9-23); CALCIUM LEVEL 10.4 MG/DL (8.5-10.1); CARBON DIOXIDE LEVEL 16 MMOL/L (20-31); CHLORIDE LEVEL 110 MMOL/L (98-107); CREATININE FOR GFR 1.12 MG/DL (0.55-1.30); GLOMERULAR FILTRATION RATE > 60.0 (>51); GLUCOSE, FASTING 190 MG/DL (60-100); MAGNESIUM LEVEL 1.7 MG/DL (1.8-2.4); POTASSIUM SERUM 6.4 MMOL/L (3.5-5.1); SODIUM LEVEL 137 MMOL/L (136-145)
[2024-01-06] MEDS: MORPHINE 4 MG/ML 1ML VIAL IV PRN (21:14)
[2024-01-06] MEDS: MAG SULF 1GM/100ML (MAG RUN) 1 GM in IV 1 EA IV ONE (21:15)
[2024-01-06] MEDS: ONDANSETRON 4MG 2ML VIAL IV ONE (21:15)
[2024-01-06] MEDS ORDERED: ACETAMINOPHEN 325 MG TAB PO PRN (22:30)
[2024-01-06] MEDS ORDERED: MOM 30ML SUSPENSION UDC PO PRN (22:30)
[2024-01-06 23:05] LABS: VENOUS BASE EXCESS -9.1 (-2.0-2.0); VENOUS HCO3 16.4 MMOL/L (23.0-27.0); VENOUS PARTIAL PRESSURE O2 100.1 mmHg (30.0-50.0); VENOUS PH 7.301 UNITS (7.330-7.430); VENOUS STANDARD HCO3 17.2 MMOL/L; VENOUS TOTAL CO2 17.4 MMOL/L (24.0-28.0)
[2024-01-06] MEDS: HumuLIN R (REGULAR) INSULIN (NovoLIN R) **100U/ML** PER UNIT IV ONE (23:48)
[2024-01-06] MEDS: LEVEMIR (INSULIN DETEMIR) 1 UNITS/0.01ML SQ SCH (23:49)
[2024-01-07] MEDS ORDERED: INSULIN IV RATE CHANGE DOCUMENTATION ML/HR XX SCH (00:05)
[2024-01-07] MEDS: INSULIN REGULAR IN 0.9 % NACL 100 UNIT in IV 1 EA IV SCH (00:47)
[2024-01-07] MEDS: METOCLOPRAMIDE INJ 10MG/2ML VIAL IV SCH (00:50)
[2024-01-07 00:55] LABS: BLOOD UREA NITROGEN 25 MG/DL (9-23); CALCIUM LEVEL 9.7 MG/DL (8.5-10.1); CARBON DIOXIDE LEVEL 16 MMOL/L (20-31); CHLORIDE LEVEL 106 MMOL/L (98-107); CREATININE FOR GFR 1.17 MG/DL (0.55-1.30); GLOMERULAR FILTRATION RATE > 60.0 (>51); GLUCOSE, FASTING 367 MG/DL (60-100); POTASSIUM SERUM 3.9 MMOL/L (3.5-5.1); SODIUM LEVEL 136 MMOL/L (136-145)
[2024-01-07] MEDS: SCOPOLAMINE 1MG TRANSDERMAL PATCH TOP SCH (01:03)
[2024-01-07] MEDS: MAG SULF 1GM/100ML (MAG RUN) 1 GM in IV 1 EA IV SCH (01:34)
[2024-01-07] MEDS ORDERED: POTASSIUM CHLORIDE INJ 20 MEQ in LR 1,000 ML IV SCH (02:00)
[2024-01-07 03:37] LABS: VENOUS BASE EXCESS -5.5 (-2.0-2.0); VENOUS HCO3 20.5 MMOL/L (23.0-27.0); VENOUS O2 SATURATION 63.4 % (60.0-80.0); VENOUS PARTIAL PRESSURE CO2 42.1 mmHg (38.0-50.0); VENOUS PARTIAL PRESSURE O2 35.5 mmHg (30.0-50.0); VENOUS PH 7.306 UNITS (7.330-7.430); VENOUS STANDARD HCO3 19.4 MMOL/L; VENOUS TOTAL CO2 21.8 MMOL/L (24.0-28.0)
[2024-01-07] MEDS: POTASSIUM CHLORIDE INJ 40 MEQ in D5W/LR 1,000 ML IV SCH (04:05)
[2024-01-07 04:06] LABS: CREATININE FOR GFR 1.33 MG/DL (0.55-1.30); GLOMERULAR FILTRATION RATE 54.3 (>51); MAGNESIUM LEVEL 2.1 MG/DL (1.8-2.4); PHOSPHORUS LEVEL 2.6 MG/DL (2.5-4.9); POTASSIUM SERUM 3.6 MMOL/L (3.5-5.1)
[2024-01-07] MEDS ORDERED: GLUCOSE 4 GM CHEW PO PRN (04:15)
[2024-01-07] MEDS ORDERED: GLUCAGON INJ 1MG VIAL SC PRN (04:15)
[2024-01-07] MEDS: DEXTROSE 50% 50ML SYRINGE IV PRN (04:21)
[2024-01-07 06:03] LABS: VENOUS O2 SATURATION 98.2 % (60.0-80.0); VENOUS PARTIAL PRESSURE CO2 33.2 mmHg (38.0-50.0); VENOUS PARTIAL PRESSURE O2 115.4 mmHg (30.0-50.0); VENOUS PH 7.418 UNITS (7.330-7.430)
[2024-01-07 06:31] LABS: CALCIUM LEVEL 9.4 MG/DL (8.5-10.1); CREATININE FOR GFR 1.27 MG/DL (0.55-1.30); GLOMERULAR FILTRATION RATE 57.2 (>51); PHOSPHORUS LEVEL 3.7 MG/DL (2.5-4.9); POTASSIUM SERUM 5.9 MMOL/L (3.5-5.1)
[2024-01-07] MEDS ORDERED: LR 1,000 ML IV SCH (06:55)
[2024-01-07] MEDS ORDERED: D5W/LR 1,000 ML IV SCH (07:20)
[2024-01-07 07:26] VITALS: TEMP 97.8
[2024-01-07] MEDS: INSULIN LISPRO (NovoLOG) PER UNIT SC SCH (07:30)
[2024-01-07] MEDS: PATIROMER SORBITEX CALCIUM 8.4 GM POWDER PACKET (VELTASSA) PO ONE (08:00)
[2024-01-07] MEDS: PANTOPRAZOLE 40MG VIAL IV SCH (08:21)
[2024-01-07] MEDS: ENOXAPARIN 40MG/0.4ML SYRINGE (J1650 PER 10MG) SC SCH (08:21)
[2024-01-07] MEDS: DOCUSATE SODIUM 100MG CAPSULE PO SCH (08:22)
[2024-01-07 09:00] VITALS: BP 132/77
[2024-01-07] MEDS ORDERED: [UNRECOGNIZED DRUG - OTHER] IV SCH (09:00)
[2024-01-07] MEDS ORDERED: LR IV SCH (09:00)
[2024-01-07 09:30] VITALS: O2SAT 100
[2024-01-07] MEDS ORDERED: INSULIN LISPRO (NovoLOG) PER UNIT SC SCH (21:00)
== END 2024-01-07 12:51 | disposition home or self-care (01) | DRG 420 ==
LOC: M ED 16:50 → EDBD 16:50 → M ED INP 01-07 00:02
PROVIDERS: ADMIT Student in an Organized Health Care Education/Training Program; ATTEND Internal Medicine Pulmonary Disease
DX: E10.10 Type 1 diabetes mellitus with ketoacidosis without coma (principal); I48.0 Paroxysmal atrial fibrillation; E10.43 Type 1 diabetes mellitus with diabetic autonomic (poly)neuropathy; E10.22 Type 1 diabetes mellitus with diabetic chronic kidney disease; K31.84 Gastroparesis; N18.30 Chronic kidney disease, stage 3 unspecified; R11.2 Nausea with vomiting, unspecified; D63.8 Anemia in other chronic diseases classified elsewhere; F12.188 Cannabis abuse with other cannabis-induced disorder; Z87.891 Personal history of nicotine dependence; Z79.4 Long term (current) use of insulin; Z79.899 Other long term (current) drug therapy; Z91.018 Allergy to other foods

== ENCOUNTER 2024-02-21 05:02 | Inpatient (IN) | payer MEDICAID, OTHER ==
[~2024-02-21] VITALS: Ht 170.2 cm; Wt 62.9 kg
[~2024-02-21 05:02] MED LIST changes: +VENL37TA PO
[2024-02-21] MEDS: NS 1,000 ML IV ONE (05:40)
[2024-02-21] MEDS: METOCLOPRAMIDE INJ 10MG/2ML VIAL IV ONE (05:41)
[2024-02-21 05:48] LABS: VENOUS BASE EXCESS -3.6 (-2.0-2.0); VENOUS HCO3 16.6 MMOL/L (23.0-27.0); VENOUS PARTIAL PRESSURE CO2 19.5 mmHg (38.0-50.0); VENOUS PH 7.548 UNITS (7.330-7.430); VENOUS STANDARD HCO3 21.3 MMOL/L; VENOUS TOTAL CO2 17.2 MMOL/L (24.0-28.0)
[2024-02-21 05:58] LABS: BASO # 0.1 10^3/uL (0.0-0.2); BASO % 0.5 % (0.0-1.0); HEMATOCRIT 34.7 % (36.0-47.0); LYMPH # 1.1 10^3/uL (1.5-5.0); LYMPH % 8.4 % (24.0-44.0); MEAN CORPUSCULAR HEMOGLOBIN 29.1 pg (27.0-33.0); MEAN CORPUSCULAR HGB CONC 34.6 g/dl (32.0-36.5); MONO # 0.3 10^3/uL (0.0-0.8); MONO % 2.5 % (2.0-8.0); NEUTROPHILS # 11.2 10^3/uL (1.5-8.5); NEUTROPHILS % 88.3 % (36.0-66.0); PLATELET COUNT, AUTOMATED 237 10^3/uL (150-450); RED BLOOD COUNT 4.13 10^6/uL (4.00-5.40); WHITE BLOOD COUNT 12.7 10^3/uL (4.0-10.0)
[2024-02-21 06:09] LABS: ETHYL ALCOHOL (ETHANOL) 0.004 % (0.000-0.010); OSMOLALITY SERUM 309 MOSM/KG (275-295)
[2024-02-21 06:11] LABS: ACETONE/KETONE 3.14 MMOL/L (0.02-0.27)
[2024-02-21 06:15] LABS: ALBUMIN 5.2 G/DL (3.2-5.2); ALKALINE PHOSPHATASE 74 U/L (35-104); ALT/SGPT 34 U/L (7.0-40); AST/SGOT 40 U/L (<34); BILIRUBIN,DIRECT 0.2 MG/DL (<0.4); BLOOD UREA NITROGEN 31 MG/DL (9-23); CALCIUM LEVEL 11.9 MG/DL (8.5-10.1); CARBON DIOXIDE LEVEL 18 MMOL/L (20-31); CHLORIDE LEVEL 101 MMOL/L (98-107); CREATININE FOR GFR 1.14 MG/DL (0.55-1.30); GLOMERULAR FILTRATION RATE > 60.0 (>51); GLUCOSE, FASTING 274 MG/DL (60-100); LIPASE 35 U/L (12-53); POTASSIUM SERUM 5.1 MMOL/L (3.5-5.1); SODIUM LEVEL 136 MMOL/L (136-145); TOTAL PROTEIN 9.4 G/DL (5.7-8.2)
[2024-02-21] MEDS: MORPHINE 2 MG/ML 1ML VIAL IV ONE ×2 (06:41→10:07)
[2024-02-21] MEDS ORDERED: ISOVUE-370 76% 100ML VIAL As Ordered ONE (06:52)
[2024-02-21 06:58] LABS: HEMOGLOBIN A1c 8.6 % (4.0-6.0)
[2024-02-21 08:57] LABS: ABG BASE EXCESS -3.5 (-2.0-2.0); ABG HCO3 20.8 MMOL/L (22.0-26.0); ABG O2 SATURATION 96.6 % (95.0-99.0); ABG PARTIAL PRESSURE CO2 34.4 mmHg (35.0-45.0); ABG STANDARD HCO3 21.6 MMOL/L. (22.0-26.0); ABG TOTAL CO2 21.8 MMOL/L (22.0-29.0); ABG pH (ARTERIAL) 7.399 UNITS (7.350-7.450)
[2024-02-21] MEDS: ONDANSETRON 4MG 2ML VIAL IV ONE (09:52)
[2024-02-21] MEDS: KETOROLAC 30 MG/ML 1ML VIAL IV ONE (09:52)
[2024-02-21] MEDS ORDERED: HOME MED LIST COMPLETE! XX SCH (11:35)
[2024-02-21] MEDS: INSULIN LISPRO (NovoLOG) PER UNIT SC STA (12:17)
[2024-02-21 13:05] LABS: CALCIUM LEVEL 9.7 MG/DL (8.5-10.1); CREATININE FOR GFR 1.24 MG/DL (0.55-1.30); GLOMERULAR FILTRATION RATE 58.8 (>51)
[2024-02-21] MEDS ORDERED: GLUCOSE 4 GM CHEW PO PRN (13:25)
[2024-02-21] MEDS ORDERED: GLUCAGON INJ 1MG VIAL SC PRN (13:25)
[2024-02-21] MEDS: KCL 20MEQ in NS 1000ML 1,000 ML IV SCH ×2 (14:06→18:35)
[2024-02-21] MEDS: LEVEMIR (INSULIN DETEMIR) 1 UNITS/0.01ML SC SCH (14:15)
[2024-02-21] MEDS: METOCLOPRAMIDE INJ 10MG/2ML VIAL IV SCH (16:00)
[2024-02-21] MEDS ORDERED: INSULIN REGULAR IN 0.9 % NACL 100 UNIT in IV 1 EA IV SCH (16:45)
[2024-02-21] MEDS ORDERED: INSULIN IV RATE CHANGE DOCUMENTATION ML/HR XX SCH (16:45)
[2024-02-21 17:14] LABS: VENOUS BASE EXCESS -2.2 (-2.0-2.0); VENOUS HCO3 20.7 MMOL/L (23.0-27.0); VENOUS O2 SATURATION 98.8 % (60.0-80.0); VENOUS PARTIAL PRESSURE CO2 29.5 mmHg (38.0-50.0); VENOUS PARTIAL PRESSURE O2 147.2 mmHg (30.0-50.0); VENOUS PH 7.464 UNITS (7.330-7.430); VENOUS STANDARD HCO3 22.6 MMOL/L; VENOUS TOTAL CO2 21.6 MMOL/L (24.0-28.0)
[2024-02-21 17:34] LABS: HEMOGLOBIN A1c 8.6 % (4.0-6.0)
[2024-02-21 17:47] LABS: CALCIUM LEVEL 9.1 MG/DL (8.5-10.1); CREATININE FOR GFR 1.46 MG/DL (0.55-1.30); GLOMERULAR FILTRATION RATE 48.7 (>51); POTASSIUM SERUM 3.7 MMOL/L (3.5-5.1)
[2024-02-21 20:43] VITALS: BP 134/77; TEMP 98.5; O2SAT 100
[2024-02-21 20:43] LABS: CALCIUM LEVEL 9.2 MG/DL (8.5-10.1); CREATININE FOR GFR 1.47 MG/DL (0.55-1.30); GLOMERULAR FILTRATION RATE 48.3 (>51); PHOSPHORUS LEVEL 5.4 MG/DL (2.5-4.9); POTASSIUM SERUM 3.9 MMOL/L (3.5-5.1)
[2024-02-21] MEDS: INSULIN LISPRO (NovoLOG) PER UNIT SC SCH (21:00)
[2024-02-21 23:44] VITALS: BP 146/92; TEMP 98.2; O2SAT 100
[2024-02-21] MEDS: MORPHINE 2 MG/ML 1ML VIAL IV PRN (23:53)
[2024-02-22] VITALS (7 sets, daily range): BP systolic 118–176; BP diastolic 69–86; TEMP 97.6–99.8; O2SAT 84–100
[2024-02-22 00:24] LABS: CALCIUM LEVEL 8.8 MG/DL (8.5-10.1); CREATININE FOR GFR 1.49 MG/DL (0.55-1.30); GLOMERULAR FILTRATION RATE 47.6 (>51); POTASSIUM SERUM 3.9 MMOL/L (3.5-5.1)
[2024-02-22 02:19] LABS: CALCIUM LEVEL 8.9 MG/DL (8.5-10.1); CREATININE FOR GFR 1.45 MG/DL (0.55-1.30); GLOMERULAR FILTRATION RATE 49.1 (>51); POTASSIUM SERUM 4.1 MMOL/L (3.5-5.1)
[2024-02-22] MEDS: DEXTROSE 50% 50ML SYRINGE IV PRN (02:58)
[2024-02-22 05:58] LABS: MEAN CORPUSCULAR HEMOGLOBIN 29.5 pg (27.0-33.0); MEAN CORPUSCULAR HGB CONC 34.2 g/dl (32.0-36.5); MEAN CORPUSCULAR VOLUME 86.1 fl (80.0-96.0); PLATELET COUNT, AUTOMATED 208 10^3/uL (150-450); RED BLOOD COUNT 3.02 10^6/uL (4.00-5.40); WHITE BLOOD COUNT 7.6 10^3/uL (4.0-10.0)
[2024-02-22 05:59] LABS: HEMOGLOBIN 8.9 g/dl (12.0-15.5)
[2024-02-22 06:15] LABS: CALCIUM LEVEL 8.5 MG/DL (8.5-10.1); CREATININE FOR GFR 1.35 MG/DL (0.55-1.30); GLOMERULAR FILTRATION RATE 53.3 (>51); MAGNESIUM LEVEL 1.6 MG/DL (1.8-2.4); POTASSIUM SERUM 3.9 MMOL/L (3.5-5.1)
[2024-02-22] MEDS ORDERED: INSULIN LISPRO (NovoLOG) PER UNIT SC SCH (07:30)
[2024-02-22] MEDS: INSULIN LISPRO (NovoLOG) PER UNIT SC SCH ×2 (08:36→17:30)
[2024-02-22] MEDS: LEVEMIR (INSULIN DETEMIR) 1 UNITS/0.01ML SC SCH (08:37)
[2024-02-22] MEDS: MORPHINE 2 MG/ML 1ML VIAL IV ONE ×2 (12:50→13:26)
[2024-02-22] MEDS: MAG SULF 1GM/100ML (MAG RUN) 1 GM in IV 1 EA IV SCH (13:26)
[2024-02-22] MEDS: ENOXAPARIN 40MG/0.4ML SYRINGE (J1650 PER 10MG) SC SCH (20:21)
[2024-02-23 03:39] VITALS: BP 141/83; TEMP 99.3; O2SAT 100
[2024-02-23 06:53] LABS: HEMATOCRIT 25.3 % (36.0-47.0); HEMOGLOBIN 8.7 g/dl (12.0-15.5); MEAN CORPUSCULAR HEMOGLOBIN 29.6 pg (27.0-33.0); MEAN CORPUSCULAR HGB CONC 34.4 g/dl (32.0-36.5); MEAN CORPUSCULAR VOLUME 86.1 fl (80.0-96.0); PLATELET COUNT, AUTOMATED 177 10^3/uL (150-450); RED BLOOD COUNT 2.94 10^6/uL (4.00-5.40)
[2024-02-23 07:24] LABS: BLOOD UREA NITROGEN 18 MG/DL (9-23); CALCIUM LEVEL 8.8 MG/DL (8.5-10.1); CARBON DIOXIDE LEVEL 21 MMOL/L (20-31); CHLORIDE LEVEL 112 MMOL/L (98-107); CREATININE FOR GFR 1.12 MG/DL (0.55-1.30); GLOMERULAR FILTRATION RATE > 60.0 (>51); GLUCOSE, FASTING 77 MG/DL (60-100); MAGNESIUM LEVEL 1.7 MG/DL (1.8-2.4); POTASSIUM SERUM 4.1 MMOL/L (3.5-5.1); SODIUM LEVEL 139 MMOL/L (136-145)
[2024-02-23 08:00] VITALS: BP 123/87; TEMP 98.8; O2SAT 100
[2024-02-23] MEDS: MAGNESIUM OXIDE 400MG TAB (MAG-OX) PO ONE (10:32)
[2024-02-23] MEDS: MAG SULF 1GM/100ML (MAG RUN) 1 GM in IV 1 EA IV ONE (10:32)
[2024-02-23] MEDS ORDERED: METO10TA2 PO (10:35)
[2024-02-23] MEDS ORDERED: PEN-308 SC (10:35)
[2024-02-23] MEDS ORDERED: INSU1MIS20 SC (10:35)
[2024-02-23] MEDS ORDERED: INSUHUMDS INJ (10:35)
[2024-02-23] MEDS ORDERED: ESSE250T PO (10:48)
== END 2024-02-23 12:51 | disposition home or self-care (01) | DRG 48 ==
LOC: M ED 05:02 → M ED INP 16:43 → M PCU 20:42
PROVIDERS: ADMIT Internal Medicine Pulmonary Disease; ATTEND Internal Medicine Nephrology
DX: E10.43 Type 1 diabetes mellitus with diabetic autonomic (poly)neuropathy (principal); E10.22 Type 1 diabetes mellitus with diabetic chronic kidney disease; N18.30 Chronic kidney disease, stage 3 unspecified; E10.65 Type 1 diabetes mellitus with hyperglycemia; I48.0 Paroxysmal atrial fibrillation; E83.42 Hypomagnesemia; K31.84 Gastroparesis; E10.10 Type 1 diabetes mellitus with ketoacidosis without coma; D63.8 Anemia in other chronic diseases classified elsewhere; Z87.891 Personal history of nicotine dependence; Z79.4 Long term (current) use of insulin; Z79.899 Other long term (current) drug therapy; Z91.018 Allergy to other foods

== ENCOUNTER 2024-03-07 21:31 | Observation (INO) | payer MEDICAID, OTHER ==
[~2024-03-07] VITALS: Ht 170.2 cm; Wt 61.0 kg
[~2024-03-07 21:31] MED LIST changes: +ESSE250T PO
[2024-03-07] MEDS: METOCLOPRAMIDE INJ 10MG/2ML VIAL IV ONE (22:16)
[2024-03-07] MEDS: MORPHINE 4 MG/ML 1ML VIAL IV PRN (22:16)
[2024-03-07] MEDS: NS (Normal Saline) 0.9% 1,000 ML IV ONE (22:16)
[2024-03-07 22:25] LABS: VENOUS BASE EXCESS -7.9 (-2.0-2.0); VENOUS HCO3 13.4 MMOL/L (23.0-27.0); VENOUS O2 SATURATION 99.5 % (60.0-80.0); VENOUS PARTIAL PRESSURE CO2 18.7 mmHg (38.0-50.0); VENOUS PARTIAL PRESSURE O2 236.2 mmHg (30.0-50.0); VENOUS PH 7.474 UNITS (7.330-7.430); VENOUS STANDARD HCO3 18.1 MMOL/L
[2024-03-07 22:28] LABS: BASO # 0.1 10^3/uL (0.0-0.2); BASO % 0.8 % (0.0-1.0); EOS % 0.5 % (0.0-3.0); HEMATOCRIT 32.9 % (36.0-47.0); HEMOGLOBIN 10.9 g/dl (12.0-15.5); LYMPH # 1.5 10^3/uL (1.5-5.0); LYMPH % 19.5 % (24.0-44.0); MEAN CORPUSCULAR HEMOGLOBIN 29.2 pg (27.0-33.0); MEAN CORPUSCULAR HGB CONC 33.1 g/dl (32.0-36.5); MEAN CORPUSCULAR VOLUME 88.2 fl (80.0-96.0); MONO # 0.4 10^3/uL (0.0-0.8); MONO % 5.1 % (2.0-8.0); NEUTROPHILS # 5.8 10^3/uL (1.5-8.5); NEUTROPHILS % 73.8 % (36.0-66.0); PLATELET COUNT, AUTOMATED 277 10^3/uL (150-450); RED BLOOD COUNT 3.73 10^6/uL (4.00-5.40); WHITE BLOOD COUNT 7.9 10^3/uL (4.0-10.0)
[2024-03-07 22:44] LABS: LIPASE 47 U/L (12-53)
[2024-03-07 22:52] LABS: ACETONE/KETONE > 4.50 MMOL/L (0.02-0.27); ALBUMIN 4.4 G/DL (3.2-5.2); ALKALINE PHOSPHATASE 63 U/L (35-104); ALT/SGPT 21 U/L (7.0-40); AST/SGOT 25 U/L (<34); BILIRUBIN,DIRECT 0.2 MG/DL (<0.4); BILIRUBIN,TOTAL 0.9 MG/DL (0.3-1.2); BLOOD UREA NITROGEN 29 MG/DL (9-23); CALCIUM LEVEL 10.8 MG/DL (8.5-10.1); CARBON DIOXIDE LEVEL 12 MMOL/L (20-31); CHLORIDE LEVEL 102 MMOL/L (98-107); CREATININE FOR GFR 1.36 MG/DL (0.55-1.30); GLOMERULAR FILTRATION RATE 52.9 (>51); GLUCOSE, FASTING 311 MG/DL (60-100); POTASSIUM SERUM 4.3 MMOL/L (3.5-5.1); SODIUM LEVEL 134 MMOL/L (136-145); TOTAL PROTEIN 7.6 G/DL (5.7-8.2)
[2024-03-07 22:57] LABS: OSMOLALITY SERUM 314 MOSM/KG (275-295)
[2024-03-07 23:04] LABS: HEMOGLOBIN A1c 8.6 % (4.0-6.0)
[2024-03-07] MEDS: HumuLIN R (REGULAR) INSULIN (NovoLIN R) **100U/ML** PER UNIT IV ONE (23:34)
[2024-03-08] VITALS (7 sets, daily range): BP systolic 122–178; BP diastolic 76–92; TEMP 97.8–98.6; O2SAT 100
[2024-03-08 00:22] LABS: AMPHETAMINES LEVEL URINE NEGATIVE (NEGATIVE); BARBITURATES URINE NEGATIVE (NEGATIVE); BENZODIAZEPINES URINE NEGATIVE (NEGATIVE); COCAINE METABOLITE URINE NEGATIVE (NEGATIVE)
[2024-03-08 00:23] LABS: METHADONE URINE NEGATIVE (NEGATIVE); PHENCYCLIDINE URINE NEGATIVE (NEGATIVE)
[2024-03-08] MEDS: LR 1,000 ML IV ONE ×2 (00:36→12:11)
[2024-03-08 00:37] LABS: CANNABINOIDS URINE POSITIVE (NEGATIVE); OPIATES URINE POSITIVE (NEGATIVE)
[2024-03-08 00:45] LABS: ABG BASE EXCESS -11.1 (-2.0-2.0); ABG HCO3 13.9 MMOL/L (22.0-26.0); ABG O2 SATURATION 99.1 % (95.0-99.0); ABG PARTIAL PRESSURE CO2 28.4 mmHg (35.0-45.0); ABG PARTIAL PRESSURE O2 200.3 mmHg (75.0-100.0); ABG STANDARD HCO3 15.7 MMOL/L. (22.0-26.0); ABG TOTAL CO2 14.7 MMOL/L (22.0-29.0); ABG pH (ARTERIAL) 7.306 UNITS (7.350-7.450)
[2024-03-08] MEDS ORDERED: METO10TA3 PO (00:49)
[2024-03-08] MEDS ORDERED: INSUHUMDS SC (00:49)
[2024-03-08] MEDS ORDERED: HOME MED LIST COMPLETE! XX SCH (00:50)
[2024-03-08] MEDS ORDERED: GLUCOSE 4 GM CHEW PO PRN (01:15)
[2024-03-08] MEDS ORDERED: ACETAMINOPHEN 325 MG TAB PO PRN (01:15)
[2024-03-08] MEDS ORDERED: GLUCAGON INJ 1MG VIAL SC PRN (01:15)
[2024-03-08] MEDS ORDERED: DEXTROSE 50% 50ML SYRINGE IV PRN (01:15)
[2024-03-08] MEDS ORDERED: MOM 30ML SUSPENSION UDC PO PRN (01:15)
[2024-03-08] MEDS: ONDANSETRON 4MG 2ML VIAL IV ONE (02:20)
[2024-03-08] MEDS: NS (Normal Saline) 0.9% 1,000 ML IV SCH (02:21)
[2024-03-08] MEDS ORDERED: ONDANSETRON 4MG 2ML VIAL IV PRN (06:00)
[2024-03-08 08:26] LABS: BASO # 0.1 10^3/uL (0.0-0.2); BASO % 0.7 % (0.0-1.0); EOS % 0.3 % (0.0-3.0); HEMATOCRIT 32.3 % (36.0-47.0); HEMOGLOBIN 10.5 g/dl (12.0-15.5); LYMPH # 1.2 10^3/uL (1.5-5.0); LYMPH % 12.7 % (24.0-44.0); MEAN CORPUSCULAR HEMOGLOBIN 29.2 pg (27.0-33.0); MEAN CORPUSCULAR HGB CONC 32.5 g/dl (32.0-36.5); MEAN CORPUSCULAR VOLUME 89.7 fl (80.0-96.0); MONO # 0.4 10^3/uL (0.0-0.8); MONO % 3.9 % (2.0-8.0); NEUTROPHILS # 7.5 10^3/uL (1.5-8.5); NEUTROPHILS % 82.2 % (36.0-66.0); WHITE BLOOD COUNT 9.1 10^3/uL (4.0-10.0)
[2024-03-08] MEDS: HEPARIN SOD (PORCINE) 5000UNITS/ML 1ML VIAL/SYRINGE SC SCH (08:28)
[2024-03-08] MEDS: INSULIN LISPRO (NovoLOG) PER UNIT SC SCH ×2 (08:28→20:30)
[2024-03-08] MEDS: PANTOPRAZOLE 40MG VIAL IV SCH (08:28)
[2024-03-08 09:19] LABS: ACETONE/KETONE > 4.50 MMOL/L (0.02-0.27); BLOOD UREA NITROGEN 32 MG/DL (9-23); CALCIUM LEVEL 9.7 MG/DL (8.5-10.1); CARBON DIOXIDE LEVEL 15 MMOL/L (20-31); CHLORIDE LEVEL 104 MMOL/L (98-107); CREATININE FOR GFR 1.27 MG/DL (0.55-1.30); GLOMERULAR FILTRATION RATE 57.2 (>51); GLUCOSE, FASTING 287 MG/DL (60-100); MAGNESIUM LEVEL 1.6 MG/DL (1.8-2.4); POTASSIUM SERUM 5.3 MMOL/L (3.5-5.1); SODIUM LEVEL 135 MMOL/L (136-145)
[2024-03-08] MEDS: LEVEMIR (INSULIN DETEMIR) 1 UNITS/0.01ML SC ONE (10:48)
[2024-03-08] MEDS: METOCLOPRAMIDE INJ 10MG/2ML VIAL IV SCH (12:16)
[2024-03-08] MEDS: MAG SULF 1GM/100ML (MAG RUN) 1 GM in IV 1 EA IV SCH (14:34)
[2024-03-08] MEDS: SODIUM BICARBONATE 75 MEQ in NS 0.45% 1,000 ML IV SCH (14:34)
[2024-03-08 18:26] LABS: CALCIUM LEVEL 9.1 MG/DL (8.5-10.1); CREATININE FOR GFR 1.25 MG/DL (0.55-1.30); GLOMERULAR FILTRATION RATE 58.3 (>51); POTASSIUM SERUM 4.3 MMOL/L (3.5-5.1)
[2024-03-08] MEDS: MORPHINE 2 MG/ML 1ML VIAL IV PRN (22:08)
[2024-03-09] VITALS (9 sets, daily range): BP systolic 127–161; BP diastolic 75–90; TEMP 98.1–98.6; O2SAT 99–100
[2024-03-09 06:49] LABS: CALCIUM LEVEL 9.3 MG/DL (8.5-10.1); CREATININE FOR GFR 1.35 MG/DL (0.55-1.30); GLOMERULAR FILTRATION RATE 53.3 (>51); POTASSIUM SERUM 3.7 MMOL/L (3.5-5.1)
[2024-03-09] MEDS: amLODIPine 5 MG TAB PO SCH (08:52)
[2024-03-09] MEDS: LEVEMIR (INSULIN DETEMIR) 1 UNITS/0.01ML SC SCH (08:53)
[2024-03-09] MEDS ORDERED: METO10TA3 PO (10:14)
[2024-03-09] MEDS ORDERED: AMLO1TAB24 PO (10:14)
== END 2024-03-09 11:26 | disposition home or self-care (01) ==
LOC: M ED 21:31 → M ED INP 03-08 01:24 → M PCU 03-08 03:11
PROVIDERS: ADMIT Student in an Organized Health Care Education/Training Program; ATTEND Student in an Organized Health Care Education/Training Program
DX: R11.2 Nausea with vomiting, unspecified (principal); E10.65 Type 1 diabetes mellitus with hyperglycemia; E87.20 Acidosis, unspecified; E87.5 Hyperkalemia; E83.42 Hypomagnesemia; N18.30 Chronic kidney disease, stage 3 unspecified; E10.22 Type 1 diabetes mellitus with diabetic chronic kidney disease; I48.0 Paroxysmal atrial fibrillation; F12.288 Cannabis dependence with other cannabis-induced disorder; E86.0 Dehydration; Z86.39 Personal history of other endocrine, nutritional and metabolic disease; Z91.014 Allergy to mammalian meats; Z79.899 Other long term (current) drug therapy; Z79.4 Long term (current) use of insulin
CPT/HCPCS: 36415; 36600; 80048; 80076; 80307; 81001; 82010; 82803; 83036; 83690; 83735; 83930; 84100; 85025; 93005; 93041; 94760; 96361; 96365; 96366; 96372; 96375; 96376; 99285; J1815; J2405; J2470; J2765; J3475

== ENCOUNTER 2024-04-08 19:12 | Inpatient (IN) | payer OTHER ==
[~2024-04-08] VITALS: Ht 170.2 cm; Wt 61.8 kg
[~2024-04-08 19:12] MED LIST changes: +AMLO1TAB24 PO
[2024-04-08 20:25] LABS: VENOUS BASE EXCESS -1.1 (-2.0-2.0); VENOUS HCO3 24.5 MMOL/L (23.0-27.0); VENOUS O2 SATURATION 72.2 % (60.0-80.0); VENOUS PARTIAL PRESSURE CO2 44.5 mmHg (38.0-50.0); VENOUS PARTIAL PRESSURE O2 39.3 mmHg (30.0-50.0); VENOUS PH 7.358 UNITS (7.330-7.430); VENOUS STANDARD HCO3 23.1 MMOL/L; VENOUS TOTAL CO2 25.8 MMOL/L (24.0-28.0)
[2024-04-08] MEDS: MORPHINE 4 MG/ML 1ML VIAL IV PRN (20:28)
[2024-04-08] MEDS: METOCLOPRAMIDE INJ 10MG/2ML VIAL IV ONE (20:28)
[2024-04-08] MEDS: NS (Normal Saline) 0.9% 1,000 ML IV ONE ×2 (20:29→22:14)
[2024-04-08 20:52] LABS: ALBUMIN 4.4 G/DL (3.2-5.2); BILIRUBIN,DIRECT 0.1 MG/DL (<0.4); BILIRUBIN,TOTAL 0.6 MG/DL (0.3-1.2); TOTAL PROTEIN 7.4 G/DL (5.7-8.2)
[2024-04-08 21:41] LABS: ACETONE/KETONE 0.15 MMOL/L (0.02-0.27)
[2024-04-08 21:42] LABS: CREATININE FOR GFR 1.39 MG/DL (0.55-1.30); GLOMERULAR FILTRATION RATE 42.6 (>51); POTASSIUM SERUM 5.7 MMOL/L (3.5-5.1)
[2024-04-08 21:54] LABS: BASO % 0.7 % (0.0-1.0); EOS # 0.1 10^3/uL (0.0-0.5); EOS % 0.8 % (0.0-3.0); HEMATOCRIT 26.1 % (36.0-47.0); HEMOGLOBIN 8.8 g/dl (12.0-15.5); LYMPH # 1.9 10^3/uL (1.5-5.0); LYMPH % 31.7 % (24.0-44.0); MEAN CORPUSCULAR HEMOGLOBIN 29.1 pg (27.0-33.0); MEAN CORPUSCULAR HGB CONC 33.7 g/dl (32.0-36.5); MEAN CORPUSCULAR VOLUME 86.4 fl (80.0-96.0); MONO # 0.4 10^3/uL (0.0-0.8); MONO % 7.1 % (2.0-8.0); NEUTROPHILS # 3.6 10^3/uL (1.5-8.5); NEUTROPHILS % 59.5 % (36.0-66.0); PLATELET COUNT, AUTOMATED 207 10^3/uL (150-450); RED BLOOD COUNT 3.02 10^6/uL (4.00-5.40)
[2024-04-08 22:08] LABS: HEMOGLOBIN A1c 8.7 % (4.0-6.0)
[2024-04-08] MEDS: NS 500 ML IV ONE (22:14)
[2024-04-08] MEDS ORDERED: DEXTROSE 50% 50ML SYRINGE As Ordered ONE (22:47)
[2024-04-08] MEDS: DEXTROSE 50% 50ML SYRINGE IV STA (22:53)
[2024-04-08 23:13] LABS: KETONE, URINE AUTO RFX TRACE mg/dL (NEGATIVE); LEUKOCYTE ESTERASE UR AUTO RFX NEGATIVE (NEGATIVE)
[2024-04-08] MEDS ORDERED: MAALOX 30 ML SUSP *UDC PO PRN (23:55)
[2024-04-08] MEDS ORDERED: GLUCOSE 4 GM CHEW PO PRN (23:55)
[2024-04-08] MEDS ORDERED: ACETAMINOPHEN 325 MG TAB PO PRN (23:55)
[2024-04-08] MEDS ORDERED: GLUCAGON INJ 1MG VIAL SC PRN (23:55)
[2024-04-08] MEDS ORDERED: MOM 30ML SUSPENSION UDC PO PRN (23:55)
[2024-04-08] MEDS ORDERED: DEXTROSE 50% 50ML SYRINGE IV PRN (23:55)
[2024-04-09] MEDS: PANTOPRAZOLE 40MG VIAL IV ONE (00:20)
[2024-04-09] MEDS: D5W/0.45% SODIUM CHLORIDE 1,000 ML IV SCH (00:20)
[2024-04-09] MEDS ORDERED: INSU100V6 SC (00:25)
[2024-04-09] MEDS ORDERED: METO10TA2 PO (00:25)
[2024-04-09] MEDS ORDERED: HOME MED LIST COMPLETE! XX SCH (00:30)
[2024-04-09] MEDS: MORPHINE 2 MG/ML 1ML VIAL IV PRN (00:47)
[2024-04-09] MEDS: LR 1,000 ML IV ONE (07:10)
[2024-04-09] MEDS ORDERED: INSULIN LISPRO (NovoLOG) PER UNIT SC SCH (07:30)
[2024-04-09] MEDS: LR 1,000 ML IV SCH (07:51)
[2024-04-09] MEDS: METOCLOPRAMIDE INJ 10MG/2ML VIAL IV SCH (07:53)
[2024-04-09] MEDS: INSULIN LISPRO (NovoLOG) PER UNIT SC SCH (08:52)
[2024-04-09] MEDS: ONDANSETRON 4MG 2ML VIAL IV SCH (08:53)
[2024-04-09] MEDS: LEVEMIR (INSULIN DETEMIR) 1 UNITS/0.01ML SC SCH (08:53)
[2024-04-09] MEDS: PANTOPRAZOLE 40MG VIAL IV SCH (08:53)
[2024-04-09] MEDS: SCOPOLAMINE 1MG TRANSDERMAL PATCH TOP SCH (08:53)
[2024-04-09] MEDS: ENOXAPARIN 40MG/0.4ML SYRINGE (J1650 PER 10MG) SC SCH (08:54)
[2024-04-09] MEDS: DOCUSATE SODIUM 100MG CAPSULE PO SCH (08:54)
[2024-04-09] MEDS ORDERED: METOCLOPRAMIDE INJ 10MG/2ML VIAL IV SCH (09:00)
[2024-04-09 11:00] LABS: HEMATOCRIT 28.3 % (36.0-47.0); HEMOGLOBIN 9.4 g/dl (12.0-15.5); MEAN CORPUSCULAR HGB CONC 33.2 g/dl (32.0-36.5); MEAN CORPUSCULAR VOLUME 87.3 fl (80.0-96.0); RED BLOOD COUNT 3.24 10^6/uL (4.00-5.40); WHITE BLOOD COUNT 5.3 10^3/uL (4.0-10.0)
[2024-04-09 11:25] LABS: CREATININE FOR GFR 1.1 MG/DL (0.55-1.30); GLOMERULAR FILTRATION RATE 55.7 (>51); MAGNESIUM LEVEL 1.3 MG/DL (1.8-2.4); PHOSPHORUS LEVEL 2.6 MG/DL (2.5-4.9); POTASSIUM SERUM 4.4 MMOL/L (3.5-5.1)
[2024-04-09] MEDS ORDERED: MORPHINE 4 MG/ML 1ML VIAL IV PRN (11:45)
[2024-04-09] MEDS: INSULIN LISPRO (NovoLOG) PER UNIT SC ONE (12:29)
[2024-04-09] MEDS: MAG SULF 1GM/100ML (MAG RUN) 1 GM in IV 1 EA IV SCH (12:40)
[2024-04-09] MEDS ORDERED: ONDA-282 PO (15:57)
[2024-04-09] MEDS ORDERED: TRAN1DIS4 TOP (15:57)
[2024-04-09] MEDS ORDERED: PANT40TA29 PO (16:03)
[2024-04-09 16:30] VITALS: BP 123/71; TEMP 96.9; O2SAT 100
== END 2024-04-09 16:45 | disposition home or self-care (01) | DRG 48 ==
LOC: M ED 19:12 → EDBD 19:12 → M ED INP 23:54
PROVIDERS: ADMIT Student in an Organized Health Care Education/Training Program; ATTEND Student in an Organized Health Care Education/Training Program
DX: E10.43 Type 1 diabetes mellitus with diabetic autonomic (poly)neuropathy (principal); E10.22 Type 1 diabetes mellitus with diabetic chronic kidney disease; N18.30 Chronic kidney disease, stage 3 unspecified; I48.0 Paroxysmal atrial fibrillation; E87.5 Hyperkalemia; E10.65 Type 1 diabetes mellitus with hyperglycemia; R11.15 Cyclical vomiting syndrome unrelated to migraine; K29.70 Gastritis, unspecified, without bleeding; K31.84 Gastroparesis; K31.89 Other diseases of stomach and duodenum; F12.188 Cannabis abuse with other cannabis-induced disorder; D63.8 Anemia in other chronic diseases classified elsewhere; Z79.4 Long term (current) use of insulin; Z79.899 Other long term (current) drug therapy

== ENCOUNTER 2024-04-14 17:34 | Inpatient (IN) | payer OTHER ==
[~2024-04-14] VITALS: Ht 167.6 cm; Wt 64.8 kg
[~2024-04-14 17:34] MED LIST changes: +INSU100V6 SC; +TRAN1DIS4 TOP
[2024-04-14 18:28] LABS: VENOUS BASE EXCESS -9.1 (-2.0-2.0); VENOUS HCO3 13.5 MMOL/L (23.0-27.0); VENOUS O2 SATURATION 98.5 % (60.0-80.0); VENOUS PARTIAL PRESSURE CO2 19.8 mmHg (38.0-50.0); VENOUS PARTIAL PRESSURE O2 159.3 mmHg (30.0-50.0); VENOUS PH 7.453 UNITS (7.330-7.430); VENOUS STANDARD HCO3 17.1 MMOL/L; VENOUS TOTAL CO2 14.2 MMOL/L (24.0-28.0)
[2024-04-14 18:29] LABS: BASO # 0.1 10^3/uL (0.0-0.2); BASO % 0.9 % (0.0-1.0); EOS # 0.1 10^3/uL (0.0-0.5); EOS % 1.7 % (0.0-3.0); HEMATOCRIT 27.6 % (36.0-47.0); HEMOGLOBIN 9.5 g/dl (12.0-15.5); MEAN CORPUSCULAR HEMOGLOBIN 29.1 pg (27.0-33.0); MEAN CORPUSCULAR HGB CONC 34.4 g/dl (32.0-36.5); MEAN CORPUSCULAR VOLUME 84.4 fl (80.0-96.0); MONO # 0.4 10^3/uL (0.0-0.8); MONO % 6.4 % (2.0-8.0); NEUTROPHILS % 60.8 % (36.0-66.0); PLATELET COUNT, AUTOMATED 205 10^3/uL (150-450); RED BLOOD COUNT 3.27 10^6/uL (4.00-5.40); WHITE BLOOD COUNT 6.5 10^3/uL (4.0-10.0)
[2024-04-14] MEDS: METOCLOPRAMIDE INJ 10MG/2ML VIAL IV ONE (18:34)
[2024-04-14] MEDS: NS 500 ML IV ONE ×2 (18:34→20:28)
[2024-04-14] MEDS: MORPHINE 4 MG/ML 1ML VIAL IV ONE ×3 (18:35→22:22)
[2024-04-14 18:46] LABS: ACETONE/KETONE 0.9 MMOL/L (0.02-0.27)
[2024-04-14 18:57] LABS: APPEARANCE, URINE CLEAR (CLEAR); BACTERIA, URINE AUTO NEGATIVE (NEGATIVE); BILIRUBIN, URINE AUTO NEGATIVE (NEGATIVE); BLOOD, URINE BLOOD NEGATIVE (NEGATIVE); COLOR, URINE STRAW (YELLOW); GLUCOSE, URINE (UA) AUTO 2+ mg/dL (NEGATIVE); KETONE, URINE AUTO 1+ mg/dL (NEGATIVE); LEUKOCYTE ESTERASE, URINE AUTO NEGATIVE (NEGATIVE); NITRITE, URINE AUTO NEGATIVE (NEGATIVE); PROTEIN, URINE AUTO NEGATIVE (NEGATIVE); RBC, URINE AUTO 1 /HPF (0-3); SPECIFIC GRAVITY URINE AUTO 1.013 (1.002-1.035); SQUAMOUS EPITHELIAL CELL UR AU 0 /HPF (0-6); UROBILINOGEN, URINE AUTO 0.2 mg/dL (0.0-2.0); WBC, URINE AUTO 1 /HPF (0-3)
[2024-04-14 19:01] LABS: ALBUMIN 4.2 G/DL (3.2-5.2); BILIRUBIN,DIRECT 0.1 MG/DL (<0.4); BILIRUBIN,TOTAL 0.5 MG/DL (0.3-1.2); CALCIUM LEVEL 10.3 MG/DL (8.5-10.1); CREATININE FOR GFR 1.16 MG/DL (0.55-1.30); GLOMERULAR FILTRATION RATE 52.4 (>51); MAGNESIUM LEVEL 1.5 MG/DL (1.8-2.4); POTASSIUM SERUM 4.1 MMOL/L (3.5-5.1); TOTAL PROTEIN 7.3 G/DL (5.7-8.2)
[2024-04-14 19:38] LABS: HEMOGLOBIN A1c 8.8 % (4.0-6.0)
[2024-04-14] MEDS: HALOPERIDOL LACTATE 5MG/ML VIAL IV ONE (22:17)
[2024-04-14 22:19] LABS: VENOUS BASE EXCESS -9.2 (-2.0-2.0); VENOUS HCO3 14.2 MMOL/L (23.0-27.0); VENOUS O2 SATURATION 99.5 % (60.0-80.0); VENOUS PARTIAL PRESSURE O2 270.9 mmHg (30.0-50.0); VENOUS PH 7.389 UNITS (7.330-7.430); VENOUS STANDARD HCO3 17.1 MMOL/L; VENOUS TOTAL CO2 14.9 MMOL/L (24.0-28.0)
[2024-04-14 23:00] LABS: CALCIUM LEVEL 9.5 MG/DL (8.5-10.1); CREATININE FOR GFR 1.08 MG/DL (0.55-1.30); GLOMERULAR FILTRATION RATE 56.9 (>51); POTASSIUM SERUM 4.4 MMOL/L (3.5-5.1)
[2024-04-14] MEDS: HumuLIN R (REGULAR) INSULIN (NovoLIN R) **100U/ML** PER UNIT IV ONE (23:28)
[2024-04-15] MEDS ORDERED: TRAN1DIS4 TOP (00:26)
[2024-04-15] MEDS ORDERED: PANT40TA29 PO (00:26)
[2024-04-15] MEDS ORDERED: HOME MED LIST COMPLETE! XX SCH (00:30)
[2024-04-15] MEDS ORDERED: MOM 30ML SUSPENSION UDC PO PRN (00:40)
[2024-04-15] MEDS: NS (Normal Saline) 0.9% 1,000 ML IV SCH (00:40)
[2024-04-15] MEDS: METOCLOPRAMIDE INJ 10MG/2ML VIAL IV PRN (05:48)
[2024-04-15] MEDS: MORPHINE 4 MG/ML 1ML VIAL IV PRN (05:48)
[2024-04-15 06:06] LABS: HEMATOCRIT 28.2 % (36.0-47.0); HEMOGLOBIN 9.6 g/dl (12.0-15.5); MEAN CORPUSCULAR HEMOGLOBIN 29.2 pg (27.0-33.0); MEAN CORPUSCULAR VOLUME 85.7 fl (80.0-96.0); PLATELET COUNT, AUTOMATED 190 10^3/uL (150-450); RED BLOOD COUNT 3.29 10^6/uL (4.00-5.40); WHITE BLOOD COUNT 8.8 10^3/uL (4.0-10.0)
[2024-04-15 06:25] LABS: ALBUMIN 3.9 G/DL (3.2-5.2); BILIRUBIN,TOTAL 0.5 MG/DL (0.3-1.2); CALCIUM LEVEL 9.2 MG/DL (8.5-10.1); CREATININE FOR GFR 1.24 MG/DL (0.55-1.30); GLOMERULAR FILTRATION RATE 48.5 (>51); POTASSIUM SERUM 4.2 MMOL/L (3.5-5.1); TOTAL PROTEIN 6.6 G/DL (5.7-8.2)
[2024-04-15] MEDS ORDERED: DEXTROSE 50% 50ML SYRINGE As Ordered ONE (07:24)
[2024-04-15] MEDS ORDERED: GLUCAGON INJ 1MG VIAL SC PRN (07:25)
[2024-04-15] MEDS ORDERED: GLUCOSE 4 GM CHEW PO PRN (07:25)
[2024-04-15] MEDS: DEXTROSE 50% 50ML SYRINGE IV PRN (07:35)
[2024-04-15] MEDS: ACETAMINOPHEN 325 MG TAB PO PRN (08:37)
[2024-04-15] MEDS: METOCLOPRAMIDE 10MG TAB PO SCH (08:38)
[2024-04-15] MEDS: PANTOPRAZOLE 40MG TAB (PROTONIX) PO SCH (08:38)
[2024-04-15] MEDS: LEVEMIR (INSULIN DETEMIR) 1 UNITS/0.01ML SC SCH (09:26)
[2024-04-15] MEDS: ENOXAPARIN 40MG/0.4ML SYRINGE (J1650 PER 10MG) SC SCH (09:26)
[2024-04-15 11:18] VITALS: BP 115/80; TEMP 97; O2SAT 99
[2024-04-15] MEDS ORDERED: PERCOCET 5MG/325MG TAB PO PRN (14:30)
[2024-04-15] MEDS: PERCOCET 5MG/325MG TAB PO PRN (17:08)
[2024-04-15 20:00] VITALS: BP 129/81; TEMP 97; O2SAT 96
[2024-04-16 04:00] VITALS: BP 150/72; TEMP 97.3; O2SAT 96
[2024-04-16 06:25] LABS: HEMATOCRIT 28.9 % (36.0-47.0); HEMOGLOBIN 9.7 g/dl (12.0-15.5); MEAN CORPUSCULAR HEMOGLOBIN 29.4 pg (27.0-33.0); MEAN CORPUSCULAR HGB CONC 33.6 g/dl (32.0-36.5); MEAN CORPUSCULAR VOLUME 87.6 fl (80.0-96.0); PLATELET COUNT, AUTOMATED 219 10^3/uL (150-450); WHITE BLOOD COUNT 6.3 10^3/uL (4.0-10.0)
[2024-04-16 06:54] LABS: BILIRUBIN,TOTAL 0.6 MG/DL (0.3-1.2); CALCIUM LEVEL 9.3 MG/DL (8.5-10.1); CREATININE FOR GFR 1.41 MG/DL (0.55-1.30); GLOMERULAR FILTRATION RATE 41.9 (>51); POTASSIUM SERUM 4.3 MMOL/L (3.5-5.1); TOTAL PROTEIN 6.7 G/DL (5.7-8.2)
[2024-04-16] MEDS: MORPHINE 2 MG/ML 1ML VIAL IV ONE (08:02)
[2024-04-16] MEDS: NS (Normal Saline) 0.9% 1,000 ML IV SCH (08:02)
[2024-04-16] MEDS: LEVEMIR (INSULIN DETEMIR) 1 UNITS/0.01ML SC SCH (08:40)
[2024-04-16] MEDS: SCOPOLAMINE 1MG TRANSDERMAL PATCH TOP PRN (08:44)
[2024-04-16] MEDS ORDERED: ONDANSETRON 4MG 2ML VIAL IV PRN (09:05)
[2024-04-16 09:46] LABS: ABG HCO3 12.2 MMOL/L (22.0-26.0); ABG O2 SATURATION 98.1 % (95.0-99.0); ABG PARTIAL PRESSURE CO2 26.3 mmHg (35.0-45.0); ABG PARTIAL PRESSURE O2 114.4 mmHg (75.0-100.0); ABG STANDARD HCO3 14.2 MMOL/L. (22.0-26.0); ABG TOTAL CO2 13.1 MMOL/L (22.0-29.0); ABG pH (ARTERIAL) 7.286 UNITS (7.350-7.450)
[2024-04-16] MEDS: MORPHINE 4 MG/ML 1ML VIAL IV PRN (10:31)
[2024-04-16] MEDS: METOCLOPRAMIDE INJ 10MG/2ML VIAL IV SCH (10:32)
[2024-04-16 12:00] VITALS: BP 158/92; TEMP 97.3; O2SAT 100
[2024-04-16] MEDS ORDERED: INSULIN LISPRO (NovoLOG) PER UNIT SC SCH ×3 (12:00→21:00)
[2024-04-16 12:17] VITALS: BP 169/81; TEMP 97.9; O2SAT 100
[2024-04-16] MEDS: INSULIN REGULAR IN 0.9 % NACL 100 UNIT in IV 1 EA IV SCH (12:23)
[2024-04-16] MEDS: INSULIN IV RATE CHANGE DOCUMENTATION ML/HR XX SCH (13:29)
[2024-04-16 14:42] LABS: CALCIUM LEVEL 9.5 MG/DL (8.5-10.1); CREATININE FOR GFR 1.32 MG/DL (0.55-1.30); GLOMERULAR FILTRATION RATE 45.2 (>51); MAGNESIUM LEVEL 1.4 MG/DL (1.8-2.4)
[2024-04-16] MEDS: D5W/0.45% SODIUM CHLORIDE 1,000 ML IV SCH ×2 (15:49→21:00)
[2024-04-16] MEDS: MAG SULF 1GM/100ML (MAG RUN) 1 GM in IV 1 EA IV ONE (15:49)
[2024-04-16 16:00] VITALS: BP 145/74; TEMP 97.6; O2SAT 100
[2024-04-16 20:00] VITALS: BP 146/84; TEMP 98; O2SAT 100
[2024-04-16 21:30] LABS: CALCIUM LEVEL 8.4 MG/DL (8.5-10.1); CREATININE FOR GFR 1.25 MG/DL (0.55-1.30); GLOMERULAR FILTRATION RATE 48.1 (>51); MAGNESIUM LEVEL 1.6 MG/DL (1.8-2.4); PHOSPHORUS LEVEL 3.3 MG/DL (2.5-4.9); POTASSIUM SERUM 4.1 MMOL/L (3.5-5.1)
[2024-04-16] MEDS: LR 1,000 ML IV SCH (23:43)
[2024-04-16] MEDS: LEVEMIR (INSULIN DETEMIR) 1 UNITS/0.01ML SC ONE (23:43)
[2024-04-17] VITALS (7 sets, daily range): BP systolic 115–156; BP diastolic 67–88; TEMP 97.9–100.5; O2SAT 99–100
[2024-04-17 02:52] LABS: CALCIUM LEVEL 9.3 MG/DL (8.5-10.1); CREATININE FOR GFR 1.25 MG/DL (0.55-1.30); GLOMERULAR FILTRATION RATE 48.1 (>51); PHOSPHORUS LEVEL 3.3 MG/DL (2.5-4.9); POTASSIUM SERUM 4.3 MMOL/L (3.5-5.1)
[2024-04-17 06:19] LABS: ALBUMIN 3.5 G/DL (3.2-5.2); BILIRUBIN,TOTAL 0.7 MG/DL (0.3-1.2); CALCIUM LEVEL 8.8 MG/DL (8.5-10.1); CREATININE FOR GFR 1.28 MG/DL (0.55-1.30); GLOMERULAR FILTRATION RATE 46.8 (>51); PHOSPHORUS LEVEL 3.3 MG/DL (2.5-4.9); POTASSIUM SERUM 4.3 MMOL/L (3.5-5.1)
[2024-04-17 06:28] LABS: HEMOGLOBIN 8.2 g/dl (12.0-15.5); MEAN CORPUSCULAR HEMOGLOBIN 29.1 pg (27.0-33.0); MEAN CORPUSCULAR HGB CONC 34.2 g/dl (32.0-36.5); MEAN CORPUSCULAR VOLUME 85.1 fl (80.0-96.0); PLATELET COUNT, AUTOMATED 188 10^3/uL (150-450); RED BLOOD COUNT 2.82 10^6/uL (4.00-5.40); WHITE BLOOD COUNT 7.6 10^3/uL (4.0-10.0)
[2024-04-17] MEDS: LEVEMIR (INSULIN DETEMIR) 1 UNITS/0.01ML SC SCH (08:46)
[2024-04-17] MEDS ORDERED: METOCLOPRAMIDE INJ 10MG/2ML VIAL IV PRN (13:45)
[2024-04-17] MEDS: METOCLOPRAMIDE 10MG TAB PO SCH (14:16)
[2024-04-17] MEDS: INSULIN LISPRO (NovoLOG) PER UNIT SC SCH ×3 (17:30→20:43)
[2024-04-17] MEDS: MORPHINE 2 MG/ML 1ML VIAL IV PRN (21:02)
[2024-04-18 02:00] VITALS: TEMP 98.4
[2024-04-18 06:01] VITALS: BP 139/86; TEMP 98.1; O2SAT 99
[2024-04-18 06:24] LABS: HEMATOCRIT 23.2 % (36.0-47.0); MEAN CORPUSCULAR HEMOGLOBIN 28.8 pg (27.0-33.0); MEAN CORPUSCULAR HGB CONC 34.5 g/dl (32.0-36.5); MEAN CORPUSCULAR VOLUME 83.5 fl (80.0-96.0); PLATELET COUNT, AUTOMATED 178 10^3/uL (150-450); RED BLOOD COUNT 2.78 10^6/uL (4.00-5.40); WHITE BLOOD COUNT 5.6 10^3/uL (4.0-10.0)
[2024-04-18 06:50] LABS: ALBUMIN 3.4 G/DL (3.2-5.2); BILIRUBIN,TOTAL 0.7 MG/DL (0.3-1.2); CALCIUM LEVEL 8.8 MG/DL (8.5-10.1); CREATININE FOR GFR 1.26 MG/DL (0.55-1.30); GLOMERULAR FILTRATION RATE 47.7 (>51); PHOSPHORUS LEVEL 3.6 MG/DL (2.5-4.9); POTASSIUM SERUM 3.8 MMOL/L (3.5-5.1)
[2024-04-18 08:00] VITALS: BP 174/92; TEMP 97.6; O2SAT 99
[2024-04-18] MEDS: LEVEMIR (INSULIN DETEMIR) 1 UNITS/0.01ML SC SCH (09:02)
== END 2024-04-18 11:17 | disposition home or self-care (01) | DRG 48 ==
LOC: M ED 17:34 → EDBD 17:34 → M ED INP 04-15 00:37 → M MSPAV 04-15 11:13 → M ICU 04-16 12:12
PROVIDERS: ADMIT Student in an Organized Health Care Education/Training Program; ATTEND Internal Medicine
PROC: 06HM33Z Insertion of Infusion Device into Right Femoral Vein, Percutaneous Approach (ICD-10-PCS; principal; 2024-04-16)
DX: E10.43 Type 1 diabetes mellitus with diabetic autonomic (poly)neuropathy (principal); E87.3 Alkalosis; N17.9 Acute kidney failure, unspecified; E10.22 Type 1 diabetes mellitus with diabetic chronic kidney disease; E10.649 Type 1 diabetes mellitus with hypoglycemia without coma; I48.0 Paroxysmal atrial fibrillation; E10.65 Type 1 diabetes mellitus with hyperglycemia; K31.84 Gastroparesis; N18.9 Chronic kidney disease, unspecified; F12.188 Cannabis abuse with other cannabis-induced disorder; R11.2 Nausea with vomiting, unspecified; Z79.4 Long term (current) use of insulin; Z79.899 Other long term (current) drug therapy; Z91.018 Allergy to other foods

== ENCOUNTER 2024-04-20 20:14 | Observation (INO) | payer OTHER ==
[~2024-04-20] VITALS: Ht 167.6 cm; Wt 64.8 kg
[2024-04-20 20:55] LABS: BASO # 0.1 10^3/uL (0.0-0.2); BASO % 1.2 % (0.0-1.0); EOS # 0.1 10^3/uL (0.0-0.5); EOS % 1.9 % (0.0-3.0); HEMATOCRIT 31.9 % (36.0-47.0); HEMOGLOBIN 11.1 g/dl (12.0-15.5); LYMPH # 1.7 10^3/uL (1.5-5.0); LYMPH % 22.8 % (24.0-44.0); MEAN CORPUSCULAR HEMOGLOBIN 29.1 pg (27.0-33.0); MEAN CORPUSCULAR HGB CONC 34.8 g/dl (32.0-36.5); MEAN CORPUSCULAR VOLUME 83.7 fl (80.0-96.0); MONO # 0.6 10^3/uL (0.0-0.8); MONO % 7.6 % (2.0-8.0); NEUTROPHILS # 4.8 10^3/uL (1.5-8.5); NEUTROPHILS % 66.4 % (36.0-66.0); PLATELET COUNT, AUTOMATED 227 10^3/uL (150-450); RED BLOOD COUNT 3.81 10^6/uL (4.00-5.40); WHITE BLOOD COUNT 7.3 10^3/uL (4.0-10.0)
[2024-04-20] MEDS: MORPHINE 4 MG/ML 1ML VIAL IV PRN (21:44)
[2024-04-20] MEDS: METOCLOPRAMIDE INJ 10MG/2ML VIAL IV ONE (21:44)
[2024-04-20 21:51] LABS: VENOUS BASE EXCESS -6.1 (-2.0-2.0); VENOUS HCO3 17.2 MMOL/L (23.0-27.0); VENOUS O2 SATURATION 88.6 % (60.0-80.0); VENOUS PARTIAL PRESSURE CO2 27.1 mmHg (38.0-50.0); VENOUS PARTIAL PRESSURE O2 54.9 mmHg (30.0-50.0); VENOUS PH 7.421 UNITS (7.330-7.430); VENOUS STANDARD HCO3 19.3 MMOL/L; VENOUS TOTAL CO2 18.1 MMOL/L (24.0-28.0)
[2024-04-20 22:11] LABS: ACETONE/KETONE 3.98 MMOL/L (0.02-0.27); ALBUMIN 4.9 G/DL (3.2-5.2); BILIRUBIN,DIRECT 0.3 MG/DL (<0.4); CALCIUM LEVEL 9.8 MG/DL (8.5-10.1); CREATININE FOR GFR 1.27 MG/DL (0.55-1.30); GLOMERULAR FILTRATION RATE 47.2 (>51); POTASSIUM SERUM 4.1 MMOL/L (3.5-5.1); TOTAL PROTEIN 7.9 G/DL (5.7-8.2)
[2024-04-20] MEDS ORDERED: HOME MED LIST COMPLETE! XX SCH (23:10)
[2024-04-21] MEDS ORDERED: GLUCAGON INJ 1MG VIAL SC PRN (00:25)
[2024-04-21] MEDS ORDERED: DEXTROSE 50% 50ML SYRINGE IV PRN (00:25)
[2024-04-21] MEDS ORDERED: ACETAMINOPHEN 325 MG TAB PO PRN (00:25)
[2024-04-21] MEDS ORDERED: GLUCOSE 4 GM CHEW PO PRN (00:25)
[2024-04-21] MEDS ORDERED: PROMETHAZINE 25MG/ML 1ML VIAL IV PRN (00:30)
[2024-04-21] MEDS: NS (Normal Saline) 0.9% 1,000 ML IV SCH (00:48)
[2024-04-21] MEDS: INSULIN LISPRO (NovoLOG) PER UNIT SC SCH (07:30)
[2024-04-21 07:58] LABS: HEMATOCRIT 32.7 % (36.0-47.0); MEAN CORPUSCULAR HEMOGLOBIN 28.8 pg (27.0-33.0); MEAN CORPUSCULAR HGB CONC 33.6 g/dl (32.0-36.5); MEAN CORPUSCULAR VOLUME 85.6 fl (80.0-96.0); PLATELET COUNT, AUTOMATED 243 10^3/uL (150-450); RED BLOOD COUNT 3.82 10^6/uL (4.00-5.40); WHITE BLOOD COUNT 8.3 10^3/uL (4.0-10.0)
[2024-04-21] MEDS: MORPHINE 2 MG/ML 1ML VIAL IV PRN (08:30)
[2024-04-21] MEDS: METOCLOPRAMIDE 10MG TAB PO SCH (08:31)
[2024-04-21] MEDS: LEVEMIR (INSULIN DETEMIR) 1 UNITS/0.01ML SC SCH (08:31)
[2024-04-21 08:45] LABS: CALCIUM LEVEL 9.4 MG/DL (8.5-10.1); CREATININE FOR GFR 1.25 MG/DL (0.55-1.30); GLOMERULAR FILTRATION RATE 48.1 (>51); POTASSIUM SERUM 4.3 MMOL/L (3.5-5.1)
[2024-04-21] MEDS: ENOXAPARIN 40MG/0.4ML SYRINGE (J1650 PER 10MG) SC SCH (08:54)
[2024-04-21 12:00] VITALS: BP 158/90; TEMP 97.6; O2SAT 100
[2024-04-21] MEDS ORDERED: INSULIN LISPRO (NovoLOG) PER UNIT SC SCH (21:00)
== END 2024-04-21 17:22 | disposition home or self-care (01) ==
LOC: M ED 20:14 → M ED INP 20:15
PROVIDERS: ADMIT Family Medicine; ATTEND Family Medicine
DX: E10.43 Type 1 diabetes mellitus with diabetic autonomic (poly)neuropathy (principal); K31.84 Gastroparesis; E10.22 Type 1 diabetes mellitus with diabetic chronic kidney disease; N18.30 Chronic kidney disease, stage 3 unspecified; Z87.891 Personal history of nicotine dependence; Z79.4 Long term (current) use of insulin; Z79.899 Other long term (current) drug therapy; Z91.018 Allergy to other foods
CPT/HCPCS: 36415; 80048; 80076; 82010; 82803; 83690; 83930; 85025; 85027; 96374; 96375; 96376; 99285; J1815; J2765

== ENCOUNTER 2024-04-25 15:52 | Observation (INO) | payer OTHER ==
[~2024-04-25] VITALS: Ht 170.2 cm; Wt 63.8 kg
[2024-04-25] MEDS: HALOPERIDOL LACTATE 5MG/ML VIAL IV ONE (16:25)
[2024-04-25] MEDS: diphenhydrAMINE 50MG/ML VIAL IV ONE (16:25)
[2024-04-25 17:10] LABS: BASO # 0.1 10^3/uL (0.0-0.2); BASO % 0.8 % (0.0-1.0); EOS % 0.6 % (0.0-3.0); HEMOGLOBIN 9.6 g/dl (12.0-15.5); LYMPH # 1.3 10^3/uL (1.5-5.0); LYMPH % 19.4 % (24.0-44.0); MEAN CORPUSCULAR HEMOGLOBIN 28.3 pg (27.0-33.0); MEAN CORPUSCULAR HGB CONC 33.1 g/dl (32.0-36.5); MEAN CORPUSCULAR VOLUME 85.5 fl (80.0-96.0); MONO # 0.5 10^3/uL (0.0-0.8); NEUTROPHILS # 4.7 10^3/uL (1.5-8.5); PLATELET COUNT, AUTOMATED 280 10^3/uL (150-450); RED BLOOD COUNT 3.39 10^6/uL (4.00-5.40); WHITE BLOOD COUNT 6.6 10^3/uL (4.0-10.0)
[2024-04-25 17:13] LABS: VENOUS BASE EXCESS -7.2 (-2.0-2.0); VENOUS O2 SATURATION 87.1 % (60.0-80.0); VENOUS PARTIAL PRESSURE CO2 34.9 mmHg (38.0-50.0); VENOUS PARTIAL PRESSURE O2 58.1 mmHg (30.0-50.0); VENOUS STANDARD HCO3 18.4 MMOL/L; VENOUS TOTAL CO2 19.1 MMOL/L (24.0-28.0)
[2024-04-25 17:25] LABS: BLOOD UREA NITROGEN 21 MG/DL (9-23); CALCIUM LEVEL 9.2 MG/DL (8.5-10.1); CARBON DIOXIDE LEVEL 19 MMOL/L (20-31); CHLORIDE LEVEL 97 MMOL/L (98-107); CREATININE FOR GFR 1.25 MG/DL (0.55-1.30); GLOMERULAR FILTRATION RATE 48.1 (>51); GLUCOSE, FASTING 303 MG/DL (60-100); SODIUM LEVEL 132 MMOL/L (136-145)
[2024-04-25 17:29] LABS: ACETONE/KETONE > 4.50 MMOL/L (0.02-0.27)
[2024-04-25] MEDS: INSULIN LISPRO (NovoLOG) PER UNIT SC SCH (17:30)
[2024-04-25] MEDS: NS (Normal Saline) 0.9% 1,000 ML IV ONE (17:54)
[2024-04-25] MEDS: METOCLOPRAMIDE INJ 10MG/2ML VIAL IV SCH (18:00)
[2024-04-25] MEDS ORDERED: PROCHLORPERAZINE 10MG 2ML VIAL IV PRN (18:10)
[2024-04-25] MEDS ORDERED: TRAN1DIS4 TOP (19:18)
[2024-04-25] MEDS ORDERED: HOME MED LIST COMPLETE! XX SCH (19:20)
[2024-04-25] MEDS: LEVEMIR (INSULIN DETEMIR) 1 UNITS/0.01ML SC SCH (20:26)
[2024-04-25] MEDS: NS (Normal Saline) 0.9% 1,000 ML IV SCH (20:27)
[2024-04-25] MEDS: PANTOPRAZOLE 40MG VIAL IV SCH (20:27)
[2024-04-25] MEDS: ACETAMINOPHEN *IV* 1,000 MG in IV 1 EA IV PRN (21:05)
[2024-04-26 03:30] VITALS: TEMP 97.8
[2024-04-26 09:37] LABS: BASO # 0.1 10^3/uL (0.0-0.2); BASO % 1.1 % (0.0-1.0); EOS # 0.2 10^3/uL (0.0-0.5); EOS % 2.9 % (0.0-3.0); HEMATOCRIT 25.5 % (36.0-47.0); HEMOGLOBIN 8.6 g/dl (12.0-15.5); LYMPH # 1.8 10^3/uL (1.5-5.0); LYMPH % 33.3 % (24.0-44.0); MEAN CORPUSCULAR HEMOGLOBIN 29.2 pg (27.0-33.0); MEAN CORPUSCULAR HGB CONC 33.7 g/dl (32.0-36.5); MEAN CORPUSCULAR VOLUME 86.4 fl (80.0-96.0); MONO # 0.5 10^3/uL (0.0-0.8); MONO % 9.5 % (2.0-8.0); NEUTROPHILS # 2.9 10^3/uL (1.5-8.5); PLATELET COUNT, AUTOMATED 266 10^3/uL (150-450); RED BLOOD COUNT 2.95 10^6/uL (4.00-5.40); WHITE BLOOD COUNT 5.5 10^3/uL (4.0-10.0)
[2024-04-26 10:02] LABS: CALCIUM LEVEL 8.7 MG/DL (8.5-10.1); CREATININE FOR GFR 1.13 MG/DL (0.55-1.30); POTASSIUM SERUM 3.9 MMOL/L (3.5-5.1)
[2024-04-26 10:30] VITALS: BP 142/73; O2SAT 99
[2024-04-26] MEDS ORDERED: INSULIN LISPRO (NovoLOG) PER UNIT SC SCH (21:00)
== END 2024-04-26 10:39 | disposition home or self-care (01) ==
LOC: M ED 15:52 → EDBD 15:52 → M ED INP 15:53
PROVIDERS: ADMIT Internal Medicine Nephrology; ATTEND Internal Medicine Nephrology
DX: E10.43 Type 1 diabetes mellitus with diabetic autonomic (poly)neuropathy (principal); E10.10 Type 1 diabetes mellitus with ketoacidosis without coma; R11.2 Nausea with vomiting, unspecified; F12.288 Cannabis dependence with other cannabis-induced disorder; R10.9 Unspecified abdominal pain; G89.29 Other chronic pain; E10.22 Type 1 diabetes mellitus with diabetic chronic kidney disease; N18.30 Chronic kidney disease, stage 3 unspecified; D50.9 Iron deficiency anemia, unspecified; Z83.3 Family history of diabetes mellitus; I48.0 Paroxysmal atrial fibrillation; K21.9 Gastro-esophageal reflux disease without esophagitis; K44.9 Diaphragmatic hernia without obstruction or gangrene; Z79.899 Other long term (current) drug therapy; Z79.4 Long term (current) use of insulin; Z91.014 Allergy to mammalian meats; E73.9 Lactose intolerance, unspecified
CPT/HCPCS: 36415; 80048; 82010; 82803; 85025; 96361; 96365; 96375; 96376; 99285; J0131; J1200; J1630; J1815; J2470; J2765

== ENCOUNTER 2024-05-23 11:54 | Emergency (ER) | payer OTHER ==
[~2024-05-23] VITALS: Ht 170.2 cm; Wt 61.3 kg
[2024-05-23] MEDS ORDERED: NS (Normal Saline) 0.9% 1,000 ML IV ONE (12:05)
[2024-05-23 12:51] LABS: VENOUS BASE EXCESS -4.2 (-2.0-2.0); VENOUS HCO3 19.8 MMOL/L (23.0-27.0); VENOUS O2 SATURATION 95.8 % (60.0-80.0); VENOUS PARTIAL PRESSURE CO2 32.9 mmHg (38.0-50.0); VENOUS PARTIAL PRESSURE O2 83.7 mmHg (30.0-50.0); VENOUS PH 7.398 UNITS (7.330-7.430); VENOUS STANDARD HCO3 20.9 MMOL/L; VENOUS TOTAL CO2 20.8 MMOL/L (24.0-28.0)
[2024-05-23 12:56] LABS: BASO # 0.1 10^3/uL (0.0-0.2); BASO % 1.1 % (0.0-1.0); EOS # 0.1 10^3/uL (0.0-0.5); EOS % 1.3 % (0.0-3.0); HEMOGLOBIN 10.1 g/dl (12.0-15.5); LYMPH # 1.3 10^3/uL (1.5-5.0); LYMPH % 20.9 % (24.0-44.0); MEAN CORPUSCULAR HEMOGLOBIN 29.1 pg (27.0-33.0); MEAN CORPUSCULAR HGB CONC 33.7 g/dl (32.0-36.5); MEAN CORPUSCULAR VOLUME 86.5 fl (80.0-96.0); MONO # 0.3 10^3/uL (0.0-0.8); MONO % 4.3 % (2.0-8.0); NEUTROPHILS # 4.6 10^3/uL (1.5-8.5); NEUTROPHILS % 72.2 % (36.0-66.0); PLATELET COUNT, AUTOMATED 260 10^3/uL (150-450); RED BLOOD COUNT 3.47 10^6/uL (4.00-5.40); WHITE BLOOD COUNT 6.3 10^3/uL (4.0-10.0)
[2024-05-23 13:20] LABS: ACETONE/KETONE 0.45 MMOL/L (0.02-0.27)
[2024-05-23 13:21] LABS: ALBUMIN 4.1 G/DL (3.2-5.2); BILIRUBIN,DIRECT 0.2 MG/DL (<0.4); BILIRUBIN,TOTAL 0.6 MG/DL (0.3-1.2); CALCIUM LEVEL 10.2 MG/DL (8.5-10.1); CREATININE FOR GFR 1.27 MG/DL (0.55-1.30); GLOMERULAR FILTRATION RATE 47.2 (>51); MAGNESIUM LEVEL 1.6 MG/DL (1.8-2.4); PHOSPHORUS LEVEL 3.6 MG/DL (2.5-4.9); POTASSIUM SERUM 4.7 MMOL/L (3.5-5.1); TOTAL PROTEIN 7.2 G/DL (5.7-8.2)
[2024-05-23 14:06] LABS: HEMOGLOBIN A1c 8.8 % (4.0-6.0)
[2024-05-23] MEDS: METOCLOPRAMIDE INJ 10MG/2ML VIAL IV ONE (14:30)
[2024-05-23] MEDS: NS (Normal Saline) 0.9% 1,000 ML IV ONE (14:31)
[2024-05-23] MEDS: MORPHINE 4 MG/ML 1ML VIAL IV ONE (14:31)
[2024-05-23] MEDS: MAGNESIUM OXIDE 400MG TAB (MAG-OX) PO ONE (16:36)
[2024-05-23 18:24] VITALS: TEMP 98.2; O2SAT 100
[2024-05-23 18:30] VITALS: BP 136/75
== END 2024-05-23 19:16 | disposition home or self-care (01) ==
LOC: EDBD 11:54 → M ED 11:54
DX: R10.9 Unspecified abdominal pain (principal); I25.2 Old myocardial infarction; I48.91 Unspecified atrial fibrillation; E11.9 Type 2 diabetes mellitus without complications; D50.9 Iron deficiency anemia, unspecified; K21.9 Gastro-esophageal reflux disease without esophagitis; K76.0 Fatty (change of) liver, not elsewhere classified; N18.30 Chronic kidney disease, stage 3 unspecified; Z87.891 Personal history of nicotine dependence; Z91.014 Allergy to mammalian meats; Z79.4 Long term (current) use of insulin; Z79.899 Other long term (current) drug therapy
CPT/HCPCS: 71045; 80047; 80048; 80076; 82010; 82803; 83036; 83690; 83735; 83930; 84100; 85025; 87040; 93005; 93041; 94760; 96374; 96375; 99285; J2765

== ENCOUNTER 2024-05-24 15:08 | Inpatient (IN) | payer OTHER ==
[~2024-05-24] VITALS: Ht 170.2 cm; Wt 61.3 kg
[2024-05-24 19:18] LABS: HEMATOCRIT 29.2 % (36.0-47.0); HEMOGLOBIN 10.1 g/dl (12.0-15.5); MEAN CORPUSCULAR HEMOGLOBIN 29.4 pg (27.0-33.0); MEAN CORPUSCULAR HGB CONC 34.6 g/dl (32.0-36.5); MEAN CORPUSCULAR VOLUME 85.1 fl (80.0-96.0); PLATELET COUNT, AUTOMATED 288 10^3/uL (150-450); RED BLOOD COUNT 3.43 10^6/uL (4.00-5.40); WHITE BLOOD COUNT 11.1 10^3/uL (4.0-10.0)
[2024-05-24 19:49] LABS: ALBUMIN 4.5 G/DL (3.2-5.2); BILIRUBIN,TOTAL 0.9 MG/DL (0.3-1.2); CALCIUM LEVEL 10.3 MG/DL (8.5-10.1); CREATININE FOR GFR 1.34 MG/DL (0.55-1.30); GLOMERULAR FILTRATION RATE 44.4 (>51); POTASSIUM SERUM 4.3 MMOL/L (3.5-5.1); TOTAL PROTEIN 7.6 G/DL (5.7-8.2)
[2024-05-24] MEDS: NS (Normal Saline) 0.9% 1,000 ML IV ONE (20:10)
[2024-05-24] MEDS: METOCLOPRAMIDE INJ 10MG/2ML VIAL IV ONE (20:10)
[2024-05-24] MEDS: MORPHINE 4 MG/ML 1ML VIAL IV ONE ×2 (20:10→22:21)
[2024-05-24 20:16] LABS: VENOUS BASE EXCESS -8.9 (-2.0-2.0); VENOUS HCO3 15.7 MMOL/L (23.0-27.0); VENOUS O2 SATURATION 72.1 % (60.0-80.0); VENOUS PARTIAL PRESSURE CO2 29.9 mmHg (38.0-50.0); VENOUS PARTIAL PRESSURE O2 42.4 mmHg (30.0-50.0); VENOUS PH 7.338 UNITS (7.330-7.430); VENOUS STANDARD HCO3 16.9 MMOL/L; VENOUS TOTAL CO2 16.6 MMOL/L (24.0-28.0)
[2024-05-24] MEDS ORDERED: ISOVUE-370 76% 100ML VIAL As Ordered ONE (20:52)
[2024-05-24] MEDS: NS 500 ML IV ONE (21:20)
[2024-05-24] MEDS: HumuLIN R (REGULAR) INSULIN (NovoLIN R) **100U/ML** PER UNIT IV ONE (21:21)
[2024-05-24 22:47] LABS: VENOUS BASE EXCESS -9.1 (-2.0-2.0); VENOUS HCO3 17.1 MMOL/L (23.0-27.0); VENOUS O2 SATURATION 80.4 % (60.0-80.0); VENOUS PARTIAL PRESSURE O2 53.7 mmHg (30.0-50.0); VENOUS STANDARD HCO3 16.8 MMOL/L; VENOUS TOTAL CO2 18.2 MMOL/L (24.0-28.0)
[2024-05-24 23:17] LABS: CALCIUM LEVEL 8.6 MG/DL (8.5-10.1); CREATININE FOR GFR 1.37 MG/DL (0.55-1.30); GLOMERULAR FILTRATION RATE 43.3 (>51); POTASSIUM SERUM 3.3 MMOL/L (3.5-5.1)
[2024-05-25] MEDS ORDERED: HOME MED LIST COMPLETE! XX SCH (01:40)
[2024-05-25 01:56] LABS: APPEARANCE, URINE CLEAR (CLEAR); BACTERIA, URINE AUTO NEGATIVE (NEGATIVE); BILIRUBIN, URINE AUTO NEGATIVE (NEGATIVE); BLOOD, URINE BLOOD NEGATIVE (NEGATIVE); COLOR, URINE YELLOW (YELLOW); GLUCOSE, URINE (UA) AUTO 3+ mg/dL (NEGATIVE); KETONE, URINE AUTO 1+ mg/dL (NEGATIVE); LEUKOCYTE ESTERASE, URINE AUTO NEGATIVE (NEGATIVE); NITRITE, URINE AUTO NEGATIVE (NEGATIVE); PROTEIN, URINE AUTO NEGATIVE (NEGATIVE); RBC, URINE AUTO 0 /HPF (0-3); SPECIFIC GRAVITY URINE AUTO 1.046 (1.002-1.035); SQUAMOUS EPITHELIAL CELL UR AU 0 /HPF (0-6); UROBILINOGEN, URINE AUTO 0.2 mg/dL (0.0-2.0); WBC, URINE AUTO 2 /HPF (0-3)
[2024-05-25] MEDS ORDERED: GLUCAGON INJ 1MG VIAL SC PRN (03:05)
[2024-05-25] MEDS ORDERED: DEXTROSE 50% 50ML SYRINGE IV PRN (03:05)
[2024-05-25] MEDS ORDERED: GLUCOSE 4 GM CHEW PO PRN (03:05)
[2024-05-25] MEDS: LR 1,000 ML IV ONE (03:49)
[2024-05-25 06:19] LABS: HEMATOCRIT 26.2 % (36.0-47.0); HEMOGLOBIN 8.9 g/dl (12.0-15.5); MEAN CORPUSCULAR HEMOGLOBIN 28.6 pg (27.0-33.0); MEAN CORPUSCULAR VOLUME 84.2 fl (80.0-96.0); PLATELET COUNT, AUTOMATED 226 10^3/uL (150-450); RED BLOOD COUNT 3.11 10^6/uL (4.00-5.40); WHITE BLOOD COUNT 9.2 10^3/uL (4.0-10.0)
[2024-05-25] MEDS ORDERED: NORCO, ANEXSIA 5/325MG TABLET (HYDROcodone/ACETAMINOPHEN) PO PRN (06:20)
[2024-05-25] MEDS: ONDANSETRON 4MG 2ML VIAL IV PRN (06:33)
[2024-05-25] MEDS: ACETAMINOPHEN *IV* 1,000 MG in IV 1 EA IV PRN (06:33)
[2024-05-25 06:52] LABS: ALBUMIN 3.8 G/DL (3.2-5.2); BILIRUBIN,TOTAL 0.6 MG/DL (0.3-1.2); CALCIUM LEVEL 9.1 MG/DL (8.5-10.1); CREATININE FOR GFR 1.3 MG/DL (0.55-1.30); MAGNESIUM LEVEL 1.7 MG/DL (1.8-2.4); PHOSPHORUS LEVEL 5.3 MG/DL (2.5-4.9); POTASSIUM SERUM 4.4 MMOL/L (3.5-5.1); TOTAL PROTEIN 6.6 G/DL (5.7-8.2)
[2024-05-25] MEDS: INSULIN LISPRO (NovoLOG) PER UNIT SC SCH (07:08)
[2024-05-25] MEDS: METOCLOPRAMIDE 10MG TAB PO SCH (08:08)
[2024-05-25] MEDS: LEVEMIR (INSULIN DETEMIR) 1 UNITS/0.01ML SC SCH (08:09)
[2024-05-25] MEDS: HEPARIN SOD (PORCINE) 5000UNITS/ML 1ML VIAL/SYRINGE SC SCH (08:11)
[2024-05-25] MEDS: PANTOPRAZOLE 40MG VIAL IV SCH (08:11)
[2024-05-25 08:32] LABS: CALCIUM LEVEL 8.9 MG/DL (8.5-10.1); CREATININE FOR GFR 1.34 MG/DL (0.55-1.30); GLOMERULAR FILTRATION RATE 44.4 (>51); POTASSIUM SERUM 4.4 MMOL/L (3.5-5.1)
[2024-05-25] MEDS: SCOPOLAMINE 1MG TRANSDERMAL PATCH TOP PRN (08:52)
[2024-05-25] MEDS: KCL 10MEQ/100ML SWI (KRUN) 10 MEQ in IV 1 EA IV SCH (08:59)
[2024-05-25 10:35] LABS: ABG BASE EXCESS -11.3 (-2.0-2.0); ABG HCO3 13.5 MMOL/L (22.0-26.0); ABG O2 SATURATION 97.2 % (95.0-99.0); ABG PARTIAL PRESSURE CO2 27.1 mmHg (35.0-45.0); ABG PARTIAL PRESSURE O2 112.2 mmHg (75.0-100.0); ABG STANDARD HCO3 15.4 MMOL/L. (22.0-26.0); ABG TOTAL CO2 14.4 MMOL/L (22.0-29.0); ABG pH (ARTERIAL) 7.316 UNITS (7.350-7.450)
[2024-05-25 12:28] LABS: CALCIUM LEVEL 8.5 MG/DL (8.5-10.1); CREATININE FOR GFR 1.3 MG/DL (0.55-1.30); POTASSIUM SERUM 4.3 MMOL/L (3.5-5.1)
[2024-05-25] MEDS ORDERED: INSU100V6 SC (13:19)
[2024-05-25] MEDS ORDERED: LANTINJ4 SC (13:19)
[2024-05-25 15:30] VITALS: BP 125/76; TEMP 98.7; O2SAT 99
[2024-05-25] MEDS ORDERED: INSULIN LISPRO (NovoLOG) PER UNIT SC SCH (21:00)
== END 2024-05-25 15:48 | disposition home or self-care (01) | DRG 48 ==
LOC: EDBD 15:08 → M ED 15:08 → M ED INP 05-25 03:03
PROVIDERS: ADMIT Student in an Organized Health Care Education/Training Program; ATTEND Student in an Organized Health Care Education/Training Program
DX: E10.43 Type 1 diabetes mellitus with diabetic autonomic (poly)neuropathy (principal); E10.22 Type 1 diabetes mellitus with diabetic chronic kidney disease; K76.0 Fatty (change of) liver, not elsewhere classified; E10.65 Type 1 diabetes mellitus with hyperglycemia; I48.0 Paroxysmal atrial fibrillation; D63.8 Anemia in other chronic diseases classified elsewhere; E87.6 Hypokalemia; F12.288 Cannabis dependence with other cannabis-induced disorder; K31.84 Gastroparesis; N18.30 Chronic kidney disease, stage 3 unspecified; K21.9 Gastro-esophageal reflux disease without esophagitis; K44.9 Diaphragmatic hernia without obstruction or gangrene; E73.9 Lactose intolerance, unspecified; R11.2 Nausea with vomiting, unspecified; Z79.4 Long term (current) use of insulin; Z79.899 Other long term (current) drug therapy; Z91.018 Allergy to other foods

== ENCOUNTER 2024-07-15 18:53 | Inpatient (IN) | payer MEDICAID, OTHER ==
[~2024-07-15] VITALS: Ht 170.2 cm; Wt 59.9 kg
[2024-07-15] MEDS ORDERED: MORPHINE 4 MG/ML 1ML VIAL IV PRN (19:25)
[2024-07-15] MEDS: NS (Normal Saline) 0.9% 1,000 ML IV ONE (19:30)
[2024-07-15 19:34] LABS: VENOUS BASE EXCESS -6.8 (-2.0-2.0); VENOUS HCO3 15.9 MMOL/L (23.0-27.0); VENOUS O2 SATURATION 96.7 % (60.0-80.0); VENOUS PARTIAL PRESSURE CO2 24.3 mmHg (38.0-50.0); VENOUS PH 7.433 UNITS (7.330-7.430); VENOUS STANDARD HCO3 18.9 MMOL/L; VENOUS TOTAL CO2 16.6 MMOL/L (24.0-28.0)
[2024-07-15] MEDS: METOCLOPRAMIDE INJ 10MG/2ML VIAL IV ONE (19:36)
[2024-07-15 19:39] LABS: BASO % 0.4 % (0.0-1.0); HEMATOCRIT 32.2 % (36.0-47.0); HEMOGLOBIN 11.1 g/dl (12.0-15.5); LYMPH # 0.6 10^3/uL (1.5-5.0); LYMPH % 6.3 % (24.0-44.0); MEAN CORPUSCULAR HEMOGLOBIN 28.5 pg (27.0-33.0); MEAN CORPUSCULAR HGB CONC 34.5 g/dl (32.0-36.5); MEAN CORPUSCULAR VOLUME 82.6 fl (80.0-96.0); MONO # 0.3 10^3/uL (0.0-0.8); MONO % 3.3 % (2.0-8.0); NEUTROPHILS # 8.8 10^3/uL (1.5-8.5); NEUTROPHILS % 89.7 % (36.0-66.0); PLATELET COUNT, AUTOMATED 247 10^3/uL (150-450); WHITE BLOOD COUNT 9.8 10^3/uL (4.0-10.0)
[2024-07-15 19:52] LABS: INR 0.97; PARTIAL THROMBOPLASTIN TIME 25.9 SECONDS (24.8-34.2); PROTHROMBIN TIME 13.2 SECONDS (12.5-14.5)
[2024-07-15 20:04] LABS: ACETONE/KETONE > 4.50 MMOL/L (0.02-0.27)
[2024-07-15 20:41] LABS: ALBUMIN 5.4 G/DL (3.2-5.2); ALKALINE PHOSPHATASE 72 U/L (35-104); ALT/SGPT 26 U/L (7.0-40); AST/SGOT 68 U/L (<34); BILIRUBIN,DIRECT 0.2 MG/DL (<0.4); BILIRUBIN,TOTAL 0.9 MG/DL (0.3-1.2); BLOOD UREA NITROGEN 36 MG/DL (9-23); CALCIUM LEVEL 10.4 MG/DL (8.5-10.1); CARBON DIOXIDE LEVEL 17 MMOL/L (20-31); CHLORIDE LEVEL 91 MMOL/L (98-107); CREATININE FOR GFR 1.42 MG/DL (0.55-1.30); GLOMERULAR FILTRATION RATE 44.8 (>51); GLUCOSE, FASTING 461 MG/DL (60-100); LIPASE 26 U/L (12-53); POTASSIUM SERUM 4.4 MMOL/L (3.5-5.1); SODIUM LEVEL 131 MMOL/L (136-145); TOTAL PROTEIN 9.1 G/DL (5.7-8.2)
[2024-07-15] MEDS: HumuLIN R (REGULAR) INSULIN (NovoLIN R) **100U/ML** PER UNIT IV ONE (20:48)
[2024-07-15] MEDS ORDERED: INSULIN IV RATE CHANGE DOCUMENTATION ML/HR XX SCH (20:50)
[2024-07-15] MEDS ORDERED: NS (Normal Saline) 0.9% 1,000 ML IV SCH (21:00)
[2024-07-15] MEDS: INSULIN REGULAR IN 0.9 % NACL 100 UNIT in IV 1 EA IV SCH (21:16)
[2024-07-15] MEDS: POTASSIUM CHLORIDE 10% LIQ 20MEQ/15ML UDC PO ONE (21:30)
[2024-07-15] MEDS ORDERED: HOME MED LIST COMPLETE! XX SCH (21:45)
[2024-07-15] MEDS: KCL 20MEQ IN D5/NS 1000ML 1,000 ML IV SCH (22:29)
[2024-07-15] MEDS ORDERED: LR 1,000 ML IV SCH (23:30)
[2024-07-15] MEDS ORDERED: INSULIN REGULAR IN 0.9 % NACL 100 UNIT in IV 1 EA IV SCH (23:30)
[2024-07-15] MEDS ORDERED: ACETAMINOPHEN 325 MG TAB PO PRN (23:30)
[2024-07-15] MEDS ORDERED: MOM 30ML SUSPENSION UDC PO PRN (23:30)
[2024-07-16] VITALS (7 sets, daily range): BP systolic 104–168; BP diastolic 65–93; TEMP 98.4–98.7; O2SAT 96–100
[2024-07-16] MEDS: MORPHINE 2 MG/ML 1ML VIAL IV PRN (01:11)
[2024-07-16] MEDS: INSULIN IV RATE CHANGE DOCUMENTATION ML/HR XX SCH (01:22)
[2024-07-16] MEDS: POTASSIUM CHLORIDE INJ 20 MEQ in LR 1,000 ML IV SCH (01:32)
[2024-07-16 02:36] LABS: CALCIUM LEVEL 8.9 MG/DL (8.5-10.1); CREATININE FOR GFR 1.69 MG/DL (0.55-1.30); GLOMERULAR FILTRATION RATE 36.3 (>51); POTASSIUM SERUM 3.9 MMOL/L (3.5-5.1)
[2024-07-16] MEDS ORDERED: DEXTROSE 50% 50ML SYRINGE IV PRN ×2 (02:50→09:10)
[2024-07-16] MEDS ORDERED: GLUCAGON INJ 1MG VIAL SC PRN ×2 (02:50→09:10)
[2024-07-16] MEDS ORDERED: GLUCOSE 4 GM CHEW PO PRN ×2 (02:50→09:10)
[2024-07-16] MEDS: LanTUS (INSULIN GLARGINE INJ) 1 UNITS/0.01 ML SC SCH (03:02)
[2024-07-16] MEDS: METOCLOPRAMIDE INJ 10MG/2ML VIAL IV SCH (04:48)
[2024-07-16 05:01] LABS: ACETONE/KETONE 0.93 MMOL/L (0.02-0.27)
[2024-07-16 05:04] LABS: ALBUMIN 3.9 G/DL (3.2-5.2); BILIRUBIN,TOTAL 0.5 MG/DL (0.3-1.2); CREATININE FOR GFR 1.73 MG/DL (0.55-1.30); GLOMERULAR FILTRATION RATE 35.3 (>51); MAGNESIUM LEVEL 1.7 MG/DL (1.8-2.4); POTASSIUM SERUM 4.4 MMOL/L (3.5-5.1); TOTAL PROTEIN 6.9 G/DL (5.7-8.2)
[2024-07-16] MEDS: HEPARIN SOD (PORCINE) 5000UNITS/ML 1ML VIAL/SYRINGE SC SCH (06:44)
[2024-07-16] MEDS: PROMETHAZINE 25MG/ML 1ML VIAL IV PRN (08:30)
[2024-07-16] MEDS: PANTOPRAZOLE 40MG VIAL IV SCH (08:37)
[2024-07-16] MEDS: INSULIN LISPRO (NovoLOG) PER UNIT SC SCH ×2 (08:37→12:30)
[2024-07-16] MEDS: MAG SULF 1GM/100ML (MAG RUN) 1 GM in IV 1 EA IV ONE (08:37)
[2024-07-16] MEDS ORDERED: LACTATED RINGER'S 1000 ML IV ONE (09:00)
[2024-07-16 09:22] LABS: CALCIUM LEVEL 8.9 MG/DL (8.5-10.1); CREATININE FOR GFR 1.77 MG/DL (0.55-1.30); GLOMERULAR FILTRATION RATE 34.4 (>51); POTASSIUM SERUM 4.6 MMOL/L (3.5-5.1)
[2024-07-16] MEDS ORDERED: INSU100V6 SQ (09:22)
[2024-07-16] MEDS ORDERED: HOME MED LIST COMPLETE! XX SCH (09:25)
[2024-07-16 09:31] LABS: VENOUS BASE EXCESS -2.9 (-2.0-2.0); VENOUS HCO3 21.3 MMOL/L (23.0-27.0); VENOUS O2 SATURATION 99.3 % (60.0-80.0); VENOUS PARTIAL PRESSURE CO2 34.9 mmHg (38.0-50.0); VENOUS PARTIAL PRESSURE O2 203.9 mmHg (30.0-50.0); VENOUS PH 7.404 UNITS (7.330-7.430); VENOUS STANDARD HCO3 22.1 MMOL/L; VENOUS TOTAL CO2 22.4 MMOL/L (24.0-28.0)
[2024-07-16] MEDS: LR 1,000 ML IV ONE (09:48)
[2024-07-16 12:07] LABS: VENOUS BASE EXCESS -2.1 (-2.0-2.0); VENOUS HCO3 23.4 MMOL/L (23.0-27.0); VENOUS PARTIAL PRESSURE CO2 42.9 mmHg (38.0-50.0); VENOUS PARTIAL PRESSURE O2 55.2 mmHg (30.0-50.0); VENOUS PH 7.354 UNITS (7.330-7.430); VENOUS STANDARD HCO3 22.5 MMOL/L; VENOUS TOTAL CO2 24.7 MMOL/L (24.0-28.0)
[2024-07-16 12:46] LABS: CALCIUM LEVEL 8.5 MG/DL (8.5-10.1); CREATININE FOR GFR 1.65 MG/DL (0.55-1.30); GLOMERULAR FILTRATION RATE 37.4 (>51); POTASSIUM SERUM 4.2 MMOL/L (3.5-5.1)
[2024-07-16] MEDS ORDERED: METOCLOPRAMIDE INJ 10MG/2ML VIAL IV PRN (13:45)
[2024-07-16] MEDS: LR 1,000 ML IV SCH (15:28)
[2024-07-16 15:53] LABS: VENOUS BASE EXCESS -2.9 (-2.0-2.0); VENOUS HCO3 20.8 MMOL/L (23.0-27.0); VENOUS O2 SATURATION 98.6 % (60.0-80.0); VENOUS PARTIAL PRESSURE CO2 32.3 mmHg (38.0-50.0); VENOUS PH 7.427 UNITS (7.330-7.430); VENOUS TOTAL CO2 21.8 MMOL/L (24.0-28.0)
[2024-07-16] MEDS: RIVAROXABAN 10MG TAB (XARELTO) PO SCH (20:28)
[2024-07-16] MEDS ORDERED: INSULIN LISPRO (NovoLOG) PER UNIT SC SCH (21:00)
== END 2024-07-16 20:43 | disposition left against medical advice (07) | DRG 420 ==
LOC: M ED 18:53 → EDBD 18:53 → M ED INP 23:26 → M ICU 07-16 00:59
PROVIDERS: ADMIT Internal Medicine Critical Care Medicine; ATTEND Internal Medicine Critical Care Medicine
DX: E10.10 Type 1 diabetes mellitus with ketoacidosis without coma (principal); K31.84 Gastroparesis; E83.42 Hypomagnesemia; I48.0 Paroxysmal atrial fibrillation; N17.9 Acute kidney failure, unspecified; E10.43 Type 1 diabetes mellitus with diabetic autonomic (poly)neuropathy; E10.22 Type 1 diabetes mellitus with diabetic chronic kidney disease; N18.30 Chronic kidney disease, stage 3 unspecified; E10.65 Type 1 diabetes mellitus with hyperglycemia; E86.0 Dehydration; F12.188 Cannabis abuse with other cannabis-induced disorder; D63.1 Anemia in chronic kidney disease; R11.2 Nausea with vomiting, unspecified; Z87.891 Personal history of nicotine dependence; Z79.4 Long term (current) use of insulin; Z91.018 Allergy to other foods; Z79.899 Other long term (current) drug therapy

== ENCOUNTER 2024-07-28 19:10 | Inpatient (IN) | payer MEDICAID, OTHER ==
[~2024-07-28] VITALS: Ht 170.2 cm; Wt 61.4 kg
[2024-07-28 19:59] LABS: BASO % 0.4 % (0.0-1.0); EOS % 0.2 % (0.0-3.0); HEMATOCRIT 31.4 % (36.0-47.0); HEMOGLOBIN 10.6 g/dl (12.0-15.5); LYMPH # 1.2 10^3/uL (1.5-5.0); LYMPH % 14.9 % (24.0-44.0); MEAN CORPUSCULAR HEMOGLOBIN 28.4 pg (27.0-33.0); MEAN CORPUSCULAR HGB CONC 33.8 g/dl (32.0-36.5); MEAN CORPUSCULAR VOLUME 84.2 fl (80.0-96.0); MONO # 0.5 10^3/uL (0.0-0.8); MONO % 6.3 % (2.0-8.0); NEUTROPHILS # 6.3 10^3/uL (1.5-8.5); PLATELET COUNT, AUTOMATED 343 10^3/uL (150-450); RED BLOOD COUNT 3.73 10^6/uL (4.00-5.40); WHITE BLOOD COUNT 8.1 10^3/uL (4.0-10.0)
[2024-07-28 20:34] LABS: ALBUMIN 4.4 G/DL (3.2-5.2); BILIRUBIN,DIRECT 0.2 MG/DL (<0.4); BILIRUBIN,TOTAL 0.8 MG/DL (0.3-1.2); CALCIUM LEVEL 10.1 MG/DL (8.5-10.1); CREATININE FOR GFR 1.38 MG/DL (0.55-1.30); GLOMERULAR FILTRATION RATE 46.3 (>51); POTASSIUM SERUM 4.2 MMOL/L (3.5-5.1); TOTAL PROTEIN 7.6 G/DL (5.7-8.2)
[2024-07-28] MEDS: MORPHINE 4 MG/ML 1ML VIAL IV ONE (20:50)
[2024-07-28] MEDS: METOCLOPRAMIDE INJ 10MG/2ML VIAL IV ONE (20:51)
[2024-07-28] MEDS: NS (Normal Saline) 0.9% 1,000 ML IV ONE (20:51)
[2024-07-28] MEDS ORDERED: ISOVUE-370 76% 100ML VIAL As Ordered ONE (20:55)
[2024-07-28 20:59] LABS: MAGNESIUM LEVEL 1.8 MG/DL (1.8-2.4); PHOSPHORUS LEVEL 3.3 MG/DL (2.5-4.9)
[2024-07-28] MEDS: HumuLIN R (REGULAR) INSULIN (NovoLIN R) **100U/ML** PER UNIT IV ONE (21:09)
[2024-07-28 21:20] LABS: VENOUS BASE EXCESS -5.2 (-2.0-2.0); VENOUS HCO3 16.8 MMOL/L (23.0-27.0); VENOUS O2 SATURATION 98.8 % (60.0-80.0); VENOUS PARTIAL PRESSURE CO2 23.6 mmHg (38.0-50.0); VENOUS PARTIAL PRESSURE O2 191.3 mmHg (30.0-50.0); VENOUS PH 7.471 UNITS (7.330-7.430); VENOUS STANDARD HCO3 20.2 MMOL/L; VENOUS TOTAL CO2 17.6 MMOL/L (24.0-28.0)
[2024-07-28 22:22] LABS: ACETONE/KETONE 3.33 MMOL/L (0.02-0.27)
[2024-07-28] MEDS ORDERED: ACETAMINOPHEN 325 MG TAB PO PRN (22:30)
[2024-07-28] MEDS ORDERED: INSULIN IV RATE CHANGE DOCUMENTATION ML/HR XX SCH (22:30)
[2024-07-28] MEDS ORDERED: INSULIN REGULAR IN 0.9 % NACL 100 UNIT in IV 1 EA IV SCH (22:30)
[2024-07-28] MEDS ORDERED: MOM 30ML SUSPENSION UDC PO PRN (22:30)
[2024-07-28] MEDS: KCL 20MEQ IN D5/NS 1000ML 1,000 ML IV SCH (22:30)
[2024-07-28] MEDS ORDERED: HOME MED LIST COMPLETE! XX SCH (22:45)
[2024-07-29] VITALS (21 sets, daily range): BP systolic 121–186; BP diastolic 76–95; TEMP 98–99.4; O2SAT 99–100
[2024-07-29] MEDS: ONDANSETRON 4MG 2ML VIAL IV PRN (00:38)
[2024-07-29] MEDS: MORPHINE 2 MG/ML 1ML VIAL IV PRN (00:38)
[2024-07-29 00:40] LABS: VENOUS BASE EXCESS -6.1 (-2.0-2.0); VENOUS HCO3 19.4 MMOL/L (23.0-27.0); VENOUS PARTIAL PRESSURE CO2 38.3 mmHg (38.0-50.0); VENOUS PARTIAL PRESSURE O2 134.4 mmHg (30.0-50.0); VENOUS PH 7.323 UNITS (7.330-7.430); VENOUS STANDARD HCO3 19.5 MMOL/L; VENOUS TOTAL CO2 20.6 MMOL/L (24.0-28.0)
[2024-07-29 01:24] LABS: CALCIUM LEVEL 8.5 MG/DL (8.5-10.1); CREATININE FOR GFR 1.24 MG/DL (0.55-1.30); GLOMERULAR FILTRATION RATE 52.7 (>51); POTASSIUM SERUM 4.3 MMOL/L (3.5-5.1)
[2024-07-29] MEDS ORDERED: GLUCAGON INJ 1MG VIAL SC PRN ×2 (01:55→10:55)
[2024-07-29] MEDS ORDERED: GLUCOSE 4 GM CHEW PO PRN ×2 (01:55→10:55)
[2024-07-29] MEDS ORDERED: DEXTROSE 50% 50ML SYRINGE IV PRN ×2 (01:55→10:55)
[2024-07-29] MEDS: LanTUS (INSULIN GLARGINE INJ) 1 UNITS/0.01 ML SC ONE (02:13)
[2024-07-29] MEDS: METOCLOPRAMIDE INJ 10MG/2ML VIAL IV SCH (05:00)
[2024-07-29] MEDS: HEPARIN SOD (PORCINE) 5000UNITS/ML 1ML VIAL/SYRINGE SC SCH (06:00)
[2024-07-29 06:30] LABS: VENOUS HCO3 17.5 MMOL/L (23.0-27.0); VENOUS O2 SATURATION 99.4 % (60.0-80.0); VENOUS PARTIAL PRESSURE CO2 27.4 mmHg (38.0-50.0); VENOUS PARTIAL PRESSURE O2 261.5 mmHg (30.0-50.0); VENOUS PH 7.422 UNITS (7.330-7.430); VENOUS STANDARD HCO3 19.5 MMOL/L; VENOUS TOTAL CO2 18.3 MMOL/L (24.0-28.0)
[2024-07-29 07:18] LABS: CALCIUM LEVEL 8.1 MG/DL (8.5-10.1); CREATININE FOR GFR 1.29 MG/DL (0.55-1.30); GLOMERULAR FILTRATION RATE 50.3 (>51); MAGNESIUM LEVEL 1.6 MG/DL (1.8-2.4); PHOSPHORUS LEVEL 3.6 MG/DL (2.5-4.9); POTASSIUM SERUM 4.2 MMOL/L (3.5-5.1)
[2024-07-29] MEDS: INSULIN LISPRO (NovoLOG) PER UNIT SC SCH (09:51)
[2024-07-29] MEDS: PANTOPRAZOLE 40MG VIAL IV SCH (09:51)
[2024-07-29] MEDS: LanTUS (INSULIN GLARGINE INJ) 1 UNITS/0.01 ML SC SCH (11:42)
[2024-07-29 14:32] LABS: CALCIUM LEVEL 8.6 MG/DL (8.5-10.1); CREATININE FOR GFR 1.21 MG/DL (0.55-1.30); GLOMERULAR FILTRATION RATE 54.3 (>51); POTASSIUM SERUM 4.1 MMOL/L (3.5-5.1)
[2024-07-29] MEDS ORDERED: REGL10TA6 PO (14:47)
[2024-07-29] MEDS ORDERED: INSULIN LISPRO (NovoLOG) PER UNIT SC SCH (21:00)
== END 2024-07-29 16:00 | disposition home or self-care (01) | DRG 420 ==
LOC: M ED 19:10 → M ED INP 22:30 → M ICU 07-29 00:16
PROVIDERS: ADMIT Internal Medicine Pulmonary Disease; ATTEND Internal Medicine Pulmonary Disease
DX: E10.10 Type 1 diabetes mellitus with ketoacidosis without coma (principal); K31.84 Gastroparesis; N17.9 Acute kidney failure, unspecified; E10.22 Type 1 diabetes mellitus with diabetic chronic kidney disease; N18.30 Chronic kidney disease, stage 3 unspecified; E10.43 Type 1 diabetes mellitus with diabetic autonomic (poly)neuropathy; Z79.4 Long term (current) use of insulin; Z91.018 Allergy to other foods

== ENCOUNTER → 2024-08-11 | Outpatient (REF) | payer OTHER, SELFPAY | LOC: M SFHCPLAZ 09:21 | PROVIDERS: ATTEND Nurse Practitioner Family | DX: Z53.9 Procedure and treatment not carried out, unspecified reason (principal) ==

== ENCOUNTER → 2024-08-11 | Outpatient (CLI) | payer OTHER, SELFPAY ==
[2024-08-11 14:00] LABS: ALBUMIN 4.1 G/DL (3.2-5.2); BILIRUBIN,TOTAL 0.4 MG/DL (0.3-1.2); CALCIUM LEVEL 9.9 MG/DL (8.5-10.1); CHOLESTEROL RISK RATIO 2.48 (<5); CREATININE FOR GFR 1.34 MG/DL (0.55-1.30); HDL CHOLESTEROL 84.8 MG/DL (>40); LDL CHOLESTEROL 112.6 MG/DL (<100); MAGNESIUM LEVEL 1.8 MG/DL (1.8-2.4); NON-HDL-C 126.2 MG/DL; POTASSIUM SERUM 4.7 MMOL/L (3.5-5.1); THYROID STIMULATING HORMONE 1.459 uIU/ML (0.55-4.78)
[2024-08-11 14:01] LABS: BASO % 0.8 % (0.0-1.0); EOS # 0.2 10^3/uL (0.0-0.5); HEMATOCRIT 30.6 % (36.0-47.0); HEMOGLOBIN 9.7 g/dl (12.0-15.5); LYMPH # 1.8 10^3/uL (1.5-5.0); LYMPH % 36.7 % (24.0-44.0); MEAN CORPUSCULAR HEMOGLOBIN 27.7 pg (27.0-33.0); MEAN CORPUSCULAR HGB CONC 31.7 g/dl (32.0-36.5); MEAN CORPUSCULAR VOLUME 87.4 fl (80.0-96.0); MONO # 0.4 10^3/uL (0.0-0.8); MONO % 8.1 % (2.0-8.0); NEUTROPHILS # 2.5 10^3/uL (1.5-8.5); NEUTROPHILS % 51.2 % (36.0-66.0); PLATELET COUNT, AUTOMATED 289 10^3/uL (150-450); WHITE BLOOD COUNT 4.9 10^3/uL (4.0-10.0)
[2024-08-11 14:22] LABS: HEMOGLOBIN A1c 9.5 % (4.0-6.0)
== END ==
LOC: M PLALAB 09:47
PROVIDERS: ATTEND Nurse Practitioner Family
DX: K31.84 Gastroparesis (principal)

== ENCOUNTER 2024-10-31 21:01 | Inpatient (IN) | payer OTHER ==
[~2024-10-31] VITALS: Ht 170.2 cm; Wt 62.6 kg
[~2024-10-31 21:01] MED LIST changes: +AMIT10TA11 PO; -AMIT10TA7 PO; -ESSE250T PO; +MAGN250T17 PO
[2024-10-31 22:10] LABS: BASO # 0.0 10^3/uL (0.0-0.2); BASO % 0.2 % (0.0-1.0); EOS # 0.0 10^3/uL (0.0-0.5); EOS % 0.0 % (0.0-3.0); LYMPH # 0.7 10^3/uL (1.5-5.0); LYMPH % 5.1 % (24.0-44.0); MONO # 0.4 10^3/uL (0.0-0.8); MONO % 2.9 % (2.0-8.0); NEUTROPHILS # 12.2 10^3/uL (1.5-8.5); NEUTROPHILS % 91.5 % (36.0-66.0); PLATELET COUNT, AUTOMATED 244 10^3/uL (150-450)
[2024-10-31 22:32] LABS: ALT/SGPT 23.0 U/L (7.0-40); AST/SGOT 42.0 U/L (<34)
[2024-11-01 00:36] LABS: VENOUS BASE EXCESS -12.3 (-2.0-2.0); VENOUS HCO3 11.4 MMOL/L (23.0-27.0); VENOUS O2 SATURATION 99.4 % (60.0-80.0); VENOUS PARTIAL PRESSURE CO2 21.7 mmHg (38.0-50.0); VENOUS PARTIAL PRESSURE O2 208.6 mmHg (30.0-50.0); VENOUS PH 7.340 UNITS (7.330-7.430); VENOUS STANDARD HCO3 14.9 MMOL/L; VENOUS TOTAL CO2 12.1 MMOL/L (24.0-28.0)
[2024-11-01] MEDS: MORPHINE 4 MG/ML 1 ML VIAL IV ONE (00:43)
[2024-11-01] MEDS: NS (Normal Saline) 0.9% 1,000 ML IV ONE ×2 (00:43→03:43)
[2024-11-01] MEDS: HumuLIN R (REGULAR) INSULIN (NovoLIN R) **100 U/ML** PER UNIT IV ONE (00:44)
[2024-11-01 00:58] LABS: ESTIMATED AVERAGE GLUCOSE 246.0 MG/DL (60-110)
[2024-11-01 01:10] LABS: OSMOLALITY SERUM 324 MOSM/KG (275-295)
[2024-11-01 01:14] LABS: ACETONE/KETONE > 4.50 MMOL/L (0.02-0.27); CALCIUM LEVEL 9.1 MG/DL (8.5-10.1); CARBON DIOXIDE LEVEL 11 MMOL/L (20-31); CHLORIDE LEVEL 92 MMOL/L (98-107); CREATININE FOR GFR 1.60 MG/DL (0.55-1.30); GLOMERULAR FILTRATION RATE 38.6 (>51); MAGNESIUM LEVEL 1.8 MG/DL (1.8-2.4); PHOSPHORUS LEVEL 7.3 MG/DL (2.5-4.9); POTASSIUM SERUM 5.9 MMOL/L (3.5-5.1); SODIUM LEVEL 133 MMOL/L (136-145)
[2024-11-01] MEDS ORDERED: INSULIN IV RATE CHANGE DOCUMENTATION ML/HR XX SCH (02:00)
[2024-11-01] MEDS: INSULIN REGULAR IN 0.9 % NACL 100 UNIT in IV 1 EA IV SCH ×2 (02:55→04:38)
[2024-11-01] MEDS ORDERED: ACETAMINOPHEN *IV* 1,000 MG in IV 1 EA IV PRN (03:35)
[2024-11-01] MEDS ORDERED: MORPHINE 2 MG/ML 1 ML VIAL IV PRN (03:35)
[2024-11-01 04:06] LABS: VENOUS BASE EXCESS -10.8 (-2.0-2.0); VENOUS HCO3 15.1 MMOL/L (23.0-27.0); VENOUS O2 SATURATION 82.6 % (60.0-80.0); VENOUS PARTIAL PRESSURE CO2 33.4 mmHg (38.0-50.0); VENOUS PARTIAL PRESSURE O2 55.3 mmHg (30.0-50.0); VENOUS PH 7.272 UNITS (7.330-7.430); VENOUS STANDARD HCO3 15.7 MMOL/L; VENOUS TOTAL CO2 16.1 MMOL/L (24.0-28.0)
[2024-11-01] MEDS: MAG SULF 1GM/100ML (MAG RUN) 1 GM in IV 1 EA IV ONE (04:08)
[2024-11-01] MEDS ORDERED: NS (Normal Saline) 0.9% 1,000 ML IV SCH (04:15)
[2024-11-01 04:29] LABS: SP GRAVITY,URINE MANUAL REFLEX 1.025 (1.002-1.035)
[2024-11-01 04:30] LABS: PROTEIN, URINE MANUAL REFLEX NEGATIVE (NEGATIVE)
[2024-11-01 04:31] LABS: KETONE, URINE MANUAL REFLEX 3+ mg/dL (NEGATIVE); NITRITE, URINE MANUAL RFX NEGATIVE (NEGATIVE); UROBILINOGEN, UA MANUAL REFLEX NORMAL (NORMAL)
[2024-11-01 04:34] VITALS: BP 117/75; TEMP 97.6; O2SAT 99
[2024-11-01] MEDS: INSULIN IV RATE CHANGE DOCUMENTATION ML/HR XX SCH (04:38)
[2024-11-01 04:42] LABS: SQUAMOUS EPITHELIAL URINE RFX SMALL AMOUNT /hpf (SMALL AMT); TRANSITIONAL EPI, URINE RFX SMALL AMOUNT /hpf
[2024-11-01 04:43] LABS: HYALINE CAST, URINE RFX 0-1 /lpf (0-1)
[2024-11-01 04:44] LABS: MICROSCOPIC EXAM RFX PERFORMED; MUCUS, URINE REFLEX SMALL AMOUNT (NEGATIVE)
[2024-11-01 04:46] LABS: CALCIUM LEVEL 8.5 MG/DL (8.5-10.1); CARBON DIOXIDE LEVEL 17.0 MMOL/L (20-31); CHLORIDE LEVEL 102.0 MMOL/L (98-107); CREATININE FOR GFR 1.75 MG/DL (0.55-1.30); GLOMERULAR FILTRATION RATE 34.6 (>51); PHOSPHORUS LEVEL 5.4 MG/DL (2.5-4.9); POTASSIUM SERUM 4.0 MMOL/L (3.5-5.1); SODIUM LEVEL 139.0 MMOL/L (136-145)
[2024-11-01] MEDS: MORPHINE 4 MG/ML 1 ML VIAL IV PRN (04:48)
[2024-11-01] MEDS: cefTRIAXone SOD 2 GM in DEXTROSE 5% (D5W) ADV/MINI-BAG 50 ML IV SCH (05:00)
[2024-11-01] MEDS ORDERED: LanTUS (INSULIN GLARGINE INJ) 1 UNITS/0.01 ML SC SCH ×2 (05:00→21:00)
[2024-11-01] MEDS: LanTUS (INSULIN GLARGINE INJ) 1 UNITS/0.01 ML SC SCH ×2 (05:39→21:48)
[2024-11-01] MEDS: KCL 20MEQ in NS 1000ML 1,000 ML IV SCH (05:50)
[2024-11-01 06:02] LABS: VENOUS BASE EXCESS -6.1 (-2.0-2.0); VENOUS HCO3 18.5 MMOL/L (23.0-27.0); VENOUS O2 SATURATION 98.1 % (60.0-80.0); VENOUS PARTIAL PRESSURE CO2 33.3 mmHg (38.0-50.0); VENOUS PARTIAL PRESSURE O2 119.2 mmHg (30.0-50.0); VENOUS PH 7.362 UNITS (7.330-7.430); VENOUS STANDARD HCO3 19.4 MMOL/L; VENOUS TOTAL CO2 19.5 MMOL/L (24.0-28.0)
[2024-11-01 06:36] LABS: CALCIUM LEVEL 8.4 MG/DL (8.5-10.1); CARBON DIOXIDE LEVEL 21.0 MMOL/L (20-31); CHLORIDE LEVEL 104.0 MMOL/L (98-107); CREATININE FOR GFR 1.65 MG/DL (0.55-1.30); GLOMERULAR FILTRATION RATE 37.2 (>51); MAGNESIUM LEVEL 1.9 MG/DL (1.8-2.4); POTASSIUM SERUM 3.3 MMOL/L (3.5-5.1); SODIUM LEVEL 141.0 MMOL/L (136-145)
[2024-11-01 08:00] VITALS: BP 135/79; TEMP 97.8; O2SAT 99
[2024-11-01] MEDS: KCL 20MEQ IN D5/0.45NS 1000ML 1,000 ML IV SCH (08:15)
[2024-11-01] MEDS: POTASSIUM CHLORIDE 10MEQ SR TABLET PO ONE (08:16)
[2024-11-01] MEDS: PANTOPRAZOLE 40MG VIAL IV SCH (08:50)
[2024-11-01] MEDS ORDERED: DEXTROSE 50% 50 ML SYRINGE IV PRN (09:00)
[2024-11-01] MEDS ORDERED: GLUCOSE 4 GM CHEW PO PRN (09:00)
[2024-11-01] MEDS ORDERED: GLUCAGON INJ 1 MG VIAL SC PRN (09:00)
[2024-11-01 09:08] LABS: VENOUS BASE EXCESS -4.2 (-2.0-2.0); VENOUS HCO3 20.8 MMOL/L (23.0-27.0); VENOUS O2 SATURATION 98.4 % (60.0-80.0); VENOUS PARTIAL PRESSURE CO2 38.0 mmHg (38.0-50.0); VENOUS PARTIAL PRESSURE O2 159.9 mmHg (30.0-50.0); VENOUS PH 7.357 UNITS (7.330-7.430); VENOUS STANDARD HCO3 21.0 MMOL/L; VENOUS TOTAL CO2 22.0 MMOL/L (24.0-28.0)
[2024-11-01 09:45] LABS: CALCIUM LEVEL 7.8 MG/DL (8.5-10.1); CARBON DIOXIDE LEVEL 20.0 MMOL/L (20-31); CHLORIDE LEVEL 105.0 MMOL/L (98-107); CREATININE FOR GFR 1.56 MG/DL (0.55-1.30); GLOMERULAR FILTRATION RATE 39.8 (>51); POTASSIUM SERUM 6.0 MMOL/L (3.5-5.1); SODIUM LEVEL 140.0 MMOL/L (136-145)
[2024-11-01] MEDS: KCL 10MEQ/100ML SWI (KRUN) 10 MEQ in IV 1 EA IV ONE (09:49)
[2024-11-01] MEDS: D5W/0.45% SODIUM CHLORIDE 1,000 ML IV SCH (10:03)
[2024-11-01] MEDS: INSULIN LISPRO (NovoLOG) PER UNIT SC SCH ×3 (10:06→21:00)
[2024-11-01] MEDS: HEPARIN SOD 5000 UNITS/ML 1 ML VIAL/SYRINGE SQ SCH (11:08)
[2024-11-01 11:46] VITALS: BP 140/83; TEMP 97.4; O2SAT 97
[2024-11-01] MEDS ORDERED: INSULIN LISPRO (NovoLOG) PER UNIT SC SCH ×2 (12:00)
[2024-11-01 12:57] LABS: CALCIUM LEVEL 8.4 MG/DL (8.5-10.1); CARBON DIOXIDE LEVEL 23.0 MMOL/L (20-31); CHLORIDE LEVEL 103.0 MMOL/L (98-107); CREATININE FOR GFR 1.58 MG/DL (0.55-1.30); GLOMERULAR FILTRATION RATE 39.2 (>51); POTASSIUM SERUM 3.6 MMOL/L (3.5-5.1); SODIUM LEVEL 140.0 MMOL/L (136-145)
[2024-11-01] MEDS ORDERED: METO10TA2 PO (14:22)
[2024-11-01] MEDS ORDERED: HOME MED LIST COMPLETE! XX SCH (14:25)
[2024-11-01 16:11] VITALS: BP 138/82; TEMP 98; O2SAT 98
[2024-11-01 20:03] VITALS: BP 124/68; TEMP 97.9; O2SAT 97
[2024-11-02 03:44] VITALS: BP 132/89; TEMP 97.4; O2SAT 94
[2024-11-02 05:31] LABS: BASO # 0.1 10^3/uL (0.0-0.2); BASO % 0.6 % (0.0-1.0); EOS # 0.1 10^3/uL (0.0-0.5); EOS % 0.6 % (0.0-3.0); LYMPH # 2.0 10^3/uL (1.5-5.0); LYMPH % 18.7 % (24.0-44.0); MONO # 0.7 10^3/uL (0.0-0.8); MONO % 6.1 % (2.0-8.0); NEUTROPHILS # 7.8 10^3/uL (1.5-8.5); NEUTROPHILS % 73.8 % (36.0-66.0); PLATELET COUNT, AUTOMATED 199 10^3/uL (150-450)
[2024-11-02 06:37] LABS: CALCIUM LEVEL 8.7 MG/DL (8.5-10.1); CARBON DIOXIDE LEVEL 21.0 MMOL/L (20-31); CHLORIDE LEVEL 104.0 MMOL/L (98-107); CREATININE FOR GFR 1.42 MG/DL (0.55-1.30); GLOMERULAR FILTRATION RATE 44.5 (>51); MAGNESIUM LEVEL 1.9 MG/DL (1.8-2.4); PHOSPHORUS LEVEL 3.1 MG/DL (2.5-4.9); POTASSIUM SERUM 3.9 MMOL/L (3.5-5.1); SODIUM LEVEL 140.0 MMOL/L (136-145)
[2024-11-02 07:34] VITALS: BP 152/85; TEMP 98; O2SAT 98
[2024-11-02] MEDS ORDERED: OMEP40CA4 PO (10:43)
== END 2024-11-02 11:58 | disposition home or self-care (01) | DRG 420 ==
LOC: M ED 21:01 → M ED INP 11-01 03:40 → M ICU 11-01 04:26 → M PCU 11-01 17:00
PROVIDERS: ADMIT Student in an Organized Health Care Education/Training Program; ATTEND Internal Medicine Nephrology
DX: E10.10 Type 1 diabetes mellitus with ketoacidosis without coma (principal); I48.0 Paroxysmal atrial fibrillation; E10.22 Type 1 diabetes mellitus with diabetic chronic kidney disease; K76.0 Fatty (change of) liver, not elsewhere classified; K31.84 Gastroparesis; E10.43 Type 1 diabetes mellitus with diabetic autonomic (poly)neuropathy; N18.30 Chronic kidney disease, stage 3 unspecified; F12.188 Cannabis abuse with other cannabis-induced disorder; E10.65 Type 1 diabetes mellitus with hyperglycemia; D63.8 Anemia in other chronic diseases classified elsewhere; E73.9 Lactose intolerance, unspecified; R11.2 Nausea with vomiting, unspecified; K21.9 Gastro-esophageal reflux disease without esophagitis; K44.9 Diaphragmatic hernia without obstruction or gangrene; Z79.4 Long term (current) use of insulin; Z91.018 Allergy to other foods; Z87.891 Personal history of nicotine dependence; Z83.3 Family history of diabetes mellitus

== ENCOUNTER 2024-11-05 13:39 | Inpatient (IN) | payer OTHER ==
[~2024-11-05] VITALS: Ht 170.2 cm; Wt 64.6 kg
[~2024-11-05 13:39] MED LIST changes: +OMEP40CA4 PO
[2024-11-05 14:41] LABS: VENOUS BASE EXCESS -6.7 (-2.0-2.0); VENOUS HCO3 14.3 MMOL/L (23.0-27.0); VENOUS O2 SATURATION 94.8 % (60.0-80.0); VENOUS PARTIAL PRESSURE CO2 18.9 mmHg (38.0-50.0); VENOUS PARTIAL PRESSURE O2 68.2 mmHg (30.0-50.0); VENOUS PH 7.497 UNITS (7.330-7.430); VENOUS STANDARD HCO3 18.9 MMOL/L; VENOUS TOTAL CO2 14.9 MMOL/L (24.0-28.0)
[2024-11-05 14:53] LABS: BASO # 0.0 10^3/uL (0.0-0.2); BASO % 0.6 % (0.0-1.0); EOS # 0.0 10^3/uL (0.0-0.5); EOS % 0.6 % (0.0-3.0); LYMPH # 1.3 10^3/uL (1.5-5.0); LYMPH % 24.6 % (24.0-44.0); MONO # 0.4 10^3/uL (0.0-0.8); MONO % 8.1 % (2.0-8.0); NEUTROPHILS # 3.4 10^3/uL (1.5-8.5); NEUTROPHILS % 65.9 % (36.0-66.0); PLATELET COUNT, AUTOMATED 204 10^3/uL (150-450)
[2024-11-05 15:18] LABS: ALT/SGPT 49 U/L (7.0-40); AST/SGOT 39 U/L (<34)
[2024-11-05] MEDS ORDERED: ISOVUE-370 76% 100 ML VIAL As Ordered ONE (15:20)
[2024-11-05 15:24] LABS: ACETONE/KETONE > 4.50 MMOL/L (0.02-0.27)
[2024-11-05] MEDS: MORPHINE 4 MG/ML 1 ML VIAL IV ONE (15:28)
[2024-11-05 15:29] LABS: OSMOLALITY SERUM 291 MOSM/KG (275-295)
[2024-11-05] MEDS: NS (Normal Saline) 0.9% 1,000 ML IV SCH (15:32)
[2024-11-05 15:41] LABS: ESTIMATED AVERAGE GLUCOSE 229.0 MG/DL (60-110)
[2024-11-05 16:35] LABS: CALCIUM LEVEL 9.7 MG/DL (8.5-10.1); CARBON DIOXIDE LEVEL 15 MMOL/L (20-31); CHLORIDE LEVEL 95 MMOL/L (98-107); CREATININE FOR GFR 1.33 MG/DL (0.55-1.30); GLOMERULAR FILTRATION RATE 48.1 (>51); POTASSIUM SERUM 4.1 MMOL/L (3.5-5.1); SODIUM LEVEL 133 MMOL/L (136-145)
[2024-11-05 18:30] VITALS: BP 157/91; TEMP 97.9; O2SAT 99
[2024-11-05] MEDS: LR 1,000 ML IV ONE (18:30)
[2024-11-05 18:44] LABS: CALCIUM LEVEL 9.3 MG/DL (8.5-10.1); CARBON DIOXIDE LEVEL 20.0 MMOL/L (20-31); CHLORIDE LEVEL 97.0 MMOL/L (98-107); CREATININE FOR GFR 1.32 MG/DL (0.55-1.30); GLOMERULAR FILTRATION RATE 48.6 (>51); MAGNESIUM LEVEL 1.6 MG/DL (1.8-2.4); PHOSPHORUS LEVEL 3.0 MG/DL (2.5-4.9); POTASSIUM SERUM 4.3 MMOL/L (3.5-5.1); SODIUM LEVEL 135.0 MMOL/L (136-145)
[2024-11-05] MEDS: FAMOTIDINE 20 MG TAB PO SCH (19:42)
[2024-11-05] MEDS: D5W/LR 1,000 ML IV SCH (19:43)
[2024-11-05] MEDS: MAG SULF 1GM/100ML (MAG RUN) 1 GM in IV 1 EA IV ONE ×2 (19:45→20:57)
[2024-11-05] MEDS: INSULIN REGULAR IN 0.9 % NACL 100 UNIT in IV 1 EA IV SCH (19:59)
[2024-11-05 20:00] VITALS: BP 166/88; TEMP 97.9; O2SAT 99
[2024-11-05] MEDS: KCL 20MEQ IN D5/NS 1000ML 1,000 ML IV SCH (20:09)
[2024-11-05] MEDS ORDERED: BACI1TAB20 PO (20:51)
[2024-11-05] MEDS ORDERED: METO5SOL19 PO (20:51)
[2024-11-05] MEDS ORDERED: MULT-180 PO (20:51)
[2024-11-05] MEDS ORDERED: HOME MED LIST COMPLETE! XX SCH (20:55)
[2024-11-05] MEDS: HEPARIN SOD 5000 UNITS/ML 1 ML VIAL/SYRINGE SC SCH (21:00)
[2024-11-05 22:00] VITALS: BP 145/81; O2SAT 99
[2024-11-05] MEDS: INSULIN IV RATE CHANGE DOCUMENTATION ML/HR XX SCH (22:12)
[2024-11-05 23:02] LABS: CALCIUM LEVEL 8.6 MG/DL (8.5-10.1); CARBON DIOXIDE LEVEL 21.0 MMOL/L (20-31); CHLORIDE LEVEL 101.0 MMOL/L (98-107); CREATININE FOR GFR 1.27 MG/DL (0.55-1.30); GLOMERULAR FILTRATION RATE 50.9 (>51); PHOSPHORUS LEVEL 1.7 MG/DL (2.5-4.9); POTASSIUM SERUM 3.5 MMOL/L (3.5-5.1); SODIUM LEVEL 138.0 MMOL/L (136-145)
[2024-11-06] VITALS: BP 162/92; TEMP 97.1; O2SAT 99
[2024-11-06] MEDS: MORPHINE 2 MG/ML 1 ML VIAL IV PRN (00:16)
[2024-11-06] MEDS ORDERED: GLUCAGON INJ 1 MG VIAL SC PRN (01:25)
[2024-11-06] MEDS ORDERED: GLUCOSE 4 GM CHEW PO PRN (01:25)
[2024-11-06] MEDS ORDERED: DEXTROSE 50% 50 ML SYRINGE IV PRN (01:25)
[2024-11-06 02:17] LABS: CALCIUM LEVEL 8.4 MG/DL (8.5-10.1); CARBON DIOXIDE LEVEL 24.0 MMOL/L (20-31); CHLORIDE LEVEL 104.0 MMOL/L (98-107); CREATININE FOR GFR 1.22 MG/DL (0.55-1.30); GLOMERULAR FILTRATION RATE 53.4 (>51); PHOSPHORUS LEVEL 1.9 MG/DL (2.5-4.9); POTASSIUM SERUM 3.9 MMOL/L (3.5-5.1); SODIUM LEVEL 138.0 MMOL/L (136-145)
[2024-11-06] MEDS: POTASSIUM CHLORIDE 10MEQ SR TABLET PO ONE (02:23)
[2024-11-06 03:46] VITALS: BP 118/67; TEMP 97.3; O2SAT 99
[2024-11-06] MEDS: LanTUS (INSULIN GLARGINE INJ) 1 UNITS/0.01 ML SC SCH ×2 (03:51→15:04)
[2024-11-06] MEDS: ONDANSETRON 4MG 2ML VIAL IV PRN (06:11)
[2024-11-06 06:49] LABS: CALCIUM LEVEL 8.4 MG/DL (8.5-10.1); CARBON DIOXIDE LEVEL 21.0 MMOL/L (20-31); CHLORIDE LEVEL 105.0 MMOL/L (98-107); CREATININE FOR GFR 1.3 MG/DL (0.55-1.30); GLOMERULAR FILTRATION RATE 49.5 (>51); PHOSPHORUS LEVEL 3.0 MG/DL (2.5-4.9); POTASSIUM SERUM 4.6 MMOL/L (3.5-5.1); SODIUM LEVEL 139.0 MMOL/L (136-145)
[2024-11-06] MEDS ORDERED: INSULIN LISPRO (NovoLOG) PER UNIT SC SCH ×2 (07:30→21:00)
[2024-11-06 08:00] VITALS: BP 155/85; TEMP 98.3; O2SAT 97
[2024-11-06] MEDS: INSULIN LISPRO (NovoLOG) PER UNIT SC SCH ×2 (08:07→20:15)
[2024-11-06] MEDS: MORPHINE 10 MG/ML 1 ML VIAL IV ONE (08:38)
[2024-11-06] MEDS: ENOXAPARIN 40 MG/0.4 ML SYRINGE (J1650 PER 10MG) SC SCH (11:49)
[2024-11-06 12:00] VITALS: BP 135/79; TEMP 98; O2SAT 98
[2024-11-06 12:11] LABS: ALT/SGPT 37.0 U/L (7.0-40); AST/SGOT 26.0 U/L (<34); CALCIUM LEVEL 8.6 MG/DL (8.5-10.1); CARBON DIOXIDE LEVEL 20.0 MMOL/L (20-31); CHLORIDE LEVEL 104.0 MMOL/L (98-107); CREATININE FOR GFR 1.36 MG/DL (0.55-1.30); GLOMERULAR FILTRATION RATE 46.9 (>51); POTASSIUM SERUM 4.6 MMOL/L (3.5-5.1); SODIUM LEVEL 138.0 MMOL/L (136-145)
[2024-11-06 20:00] VITALS: BP 125/76; TEMP 97.2; O2SAT 100
[2024-11-07] MEDS: MORPHINE 4 MG/ML 1 ML VIAL IV PRN (00:38)
[2024-11-07 05:00] VITALS: BP 151/69; TEMP 97.8; O2SAT 100
[2024-11-07 07:42] LABS: BASO # 0.0 10^3/uL (0.0-0.2); BASO % 0.4 % (0.0-1.0); EOS # 0.2 10^3/uL (0.0-0.5); EOS % 3.3 % (0.0-3.0); LYMPH # 2.3 10^3/uL (1.5-5.0); LYMPH % 44.7 % (24.0-44.0); MONO # 0.5 10^3/uL (0.0-0.8); MONO % 9.5 % (2.0-8.0); NEUTROPHILS # 2.2 10^3/uL (1.5-8.5); NEUTROPHILS % 41.9 % (36.0-66.0); PLATELET COUNT, AUTOMATED 221 10^3/uL (150-450)
[2024-11-07 08:01] LABS: CALCIUM LEVEL 9.0 MG/DL (8.5-10.1); CARBON DIOXIDE LEVEL 23.0 MMOL/L (20-31); CHLORIDE LEVEL 104.0 MMOL/L (98-107); CREATININE FOR GFR 1.33 MG/DL (0.55-1.30); GLOMERULAR FILTRATION RATE 48.1 (>51); MAGNESIUM LEVEL 1.5 MG/DL (1.8-2.4); POTASSIUM SERUM 3.9 MMOL/L (3.5-5.1); SODIUM LEVEL 138.0 MMOL/L (136-145)
[2024-11-07 08:10] VITALS: BP 164/80; TEMP 97.4; O2SAT 99
[2024-11-07] MEDS ORDERED: METO5SOL19 PO (08:37)
[2024-11-07] MEDS ORDERED: RA M500C PO (08:38)
[2024-11-07] MEDS: MAG SULF 1GM/100ML (MAG RUN) 1 GM in IV 1 EA IV SCH (08:51)
== END 2024-11-07 10:32 | disposition home or self-care (01) | DRG 420 ==
LOC: M ED 13:39 → EDBD 13:39 → M ED INP 17:32 → M ICU 18:22
PROVIDERS: ADMIT Internal Medicine Pulmonary Disease; ATTEND Internal Medicine Pulmonary Disease
DX: E10.10 Type 1 diabetes mellitus with ketoacidosis without coma (principal); E10.43 Type 1 diabetes mellitus with diabetic autonomic (poly)neuropathy; K31.84 Gastroparesis; E10.65 Type 1 diabetes mellitus with hyperglycemia; F12.188 Cannabis abuse with other cannabis-induced disorder; N18.30 Chronic kidney disease, stage 3 unspecified; E10.22 Type 1 diabetes mellitus with diabetic chronic kidney disease; Z79.4 Long term (current) use of insulin; Z79.899 Other long term (current) drug therapy; Z91.018 Allergy to other foods; K21.9 Gastro-esophageal reflux disease without esophagitis; E83.42 Hypomagnesemia

== ENCOUNTER 2024-11-15 20:54 | Inpatient (IN) | payer OTHER ==
[~2024-11-15] VITALS: Ht 170.2 cm; Wt 63.6 kg
[~2024-11-15 20:54] MED LIST changes: +BACI1TAB20 PO; -IBUP-1022 PO; +IBUP600T42 PO; +METO5SOL19 PO; +MULT-180 PO; +RA M500C PO
[2024-11-15] MEDS: NS 500 ML IV ONE (22:06)
[2024-11-15] MEDS: MORPHINE 4 MG/ML 1 ML VIAL IV ONE (22:06)
[2024-11-15 22:45] LABS: VENOUS BASE EXCESS -10.8 (-2.0-2.0); VENOUS HCO3 12.5 MMOL/L (23.0-27.0); VENOUS O2 SATURATION 97.4 % (60.0-80.0); VENOUS PARTIAL PRESSURE CO2 21.7 mmHg (38.0-50.0); VENOUS PARTIAL PRESSURE O2 111.9 mmHg (30.0-50.0); VENOUS PH 7.380 UNITS (7.330-7.430); VENOUS STANDARD HCO3 15.9 MMOL/L; VENOUS TOTAL CO2 13.2 MMOL/L (24.0-28.0)
[2024-11-15 22:51] LABS: BASO # 0.1 10^3/uL (0.0-0.2); BASO % 0.4 % (0.0-1.0); EOS # 0.0 10^3/uL (0.0-0.5); EOS % 0.1 % (0.0-3.0); LYMPH # 0.7 10^3/uL (1.5-5.0); LYMPH % 5.7 % (24.0-44.0); MONO # 0.7 10^3/uL (0.0-0.8); MONO % 6.1 % (2.0-8.0); NEUTROPHILS # 10.0 10^3/uL (1.5-8.5); NEUTROPHILS % 87.3 % (36.0-66.0); PLATELET COUNT, AUTOMATED 269 10^3/uL (150-450)
[2024-11-15 23:21] LABS: OSMOLALITY SERUM 309 MOSM/KG (275-295)
[2024-11-15 23:25] LABS: ESTIMATED AVERAGE GLUCOSE 237.0 MG/DL (60-110)
[2024-11-15 23:43] LABS: ACETONE/KETONE > 4.50 MMOL/L (0.02-0.27); ALT/SGPT 25 U/L (7.0-40); AST/SGOT 26 U/L (<34); CALCIUM LEVEL 9.1 MG/DL (8.5-10.1); CARBON DIOXIDE LEVEL 12 MMOL/L (20-31); CHLORIDE LEVEL 92 MMOL/L (98-107); CREATININE FOR GFR 1.72 MG/DL (0.55-1.30); FREE T4 1.39 NG/DL (0.89-1.76); GLOMERULAR FILTRATION RATE 35.4 (>51); MAGNESIUM LEVEL 1.8 MG/DL (1.8-2.4); POTASSIUM SERUM 4.6 MMOL/L (3.5-5.1); SODIUM LEVEL 132 MMOL/L (136-145)
[2024-11-15] MEDS ORDERED: INSULIN IV RATE CHANGE DOCUMENTATION ML/HR XX SCH (23:45)
[2024-11-16] VITALS (14 sets, daily range): BP systolic 107–165; BP diastolic 66–98; TEMP 97.4–98.5; O2SAT 99–100
[2024-11-16] MEDS: INSULIN REGULAR IN 0.9 % NACL 100 UNIT in IV 1 EA IV SCH ×2 (00:06→01:07)
[2024-11-16] MEDS ORDERED: ONDANSETRON 4MG 2ML VIAL IV PRN (00:35)
[2024-11-16] MEDS: NS (Normal Saline) 0.9% 1,000 ML IV SCH (01:30)
[2024-11-16] MEDS: NS (Normal Saline) 0.9% 1,000 ML IV ONE (02:10)
[2024-11-16 03:00] LABS: CALCIUM LEVEL 8.5 MG/DL (8.5-10.1); CARBON DIOXIDE LEVEL 16.0 MMOL/L (20-31); CHLORIDE LEVEL 98.0 MMOL/L (98-107); CREATININE FOR GFR 1.81 MG/DL (0.55-1.30); GLOMERULAR FILTRATION RATE 33.3 (>51); POTASSIUM SERUM 3.7 MMOL/L (3.5-5.1); SODIUM LEVEL 136.0 MMOL/L (136-145)
[2024-11-16] MEDS: D5W/0.45% SODIUM CHLORIDE 500 ML IV ONE (03:55)
[2024-11-16] MEDS: KCL 20MEQ IN D5/0.45NS 1000ML 1,000 ML IV SCH (03:57)
[2024-11-16] MEDS: INSULIN IV RATE CHANGE DOCUMENTATION ML/HR XX SCH (07:19)
[2024-11-16] MEDS: MORPHINE 2 MG/ML 1 ML VIAL IV PRN (07:28)
[2024-11-16] MEDS: ENOXAPARIN 40 MG/0.4 ML SYRINGE (J1650 PER 10MG) SC SCH (09:00)
[2024-11-16 09:03] LABS: CALCIUM LEVEL 8.1 MG/DL (8.5-10.1); CARBON DIOXIDE LEVEL 23.0 MMOL/L (20-31); CHLORIDE LEVEL 101.0 MMOL/L (98-107); CREATININE FOR GFR 1.58 MG/DL (0.55-1.30); GLOMERULAR FILTRATION RATE 39.2 (>51); PHOSPHORUS LEVEL 3.2 MG/DL (2.5-4.9); POTASSIUM SERUM 3.7 MMOL/L (3.5-5.1); SODIUM LEVEL 137.0 MMOL/L (136-145)
[2024-11-16] MEDS: PANTOPRAZOLE 40MG VIAL IV SCH (10:04)
[2024-11-16] MEDS ORDERED: HOME MED LIST COMPLETE! XX SCH (10:45)
[2024-11-16] MEDS: CALCIUM GLUCONATE 1,000 MG in DEXTROSE 5% (D5W) MINI-BAG PLU 100 ML IV ONE (12:11)
[2024-11-16 14:06] LABS: CALCIUM LEVEL 8.1 MG/DL (8.5-10.1); CARBON DIOXIDE LEVEL 22.0 MMOL/L (20-31); CHLORIDE LEVEL 102.0 MMOL/L (98-107); CREATININE FOR GFR 1.47 MG/DL (0.55-1.30); GLOMERULAR FILTRATION RATE 42.7 (>51); PHOSPHORUS LEVEL 2.7 MG/DL (2.5-4.9); POTASSIUM SERUM 4.3 MMOL/L (3.5-5.1); SODIUM LEVEL 134.0 MMOL/L (136-145)
[2024-11-16] MEDS ORDERED: DEXTROSE 50% 50 ML SYRINGE IV PRN (14:50)
[2024-11-16] MEDS ORDERED: GLUCAGON INJ 1 MG VIAL SC PRN (14:50)
[2024-11-16] MEDS ORDERED: GLUCOSE 4 GM CHEW PO PRN (14:50)
[2024-11-16] MEDS: LanTUS (INSULIN GLARGINE INJ) 1 UNITS/0.01 ML SC SCH (15:34)
[2024-11-16 16:06] LABS: APPEARANCE, URINE CLEAR (CLEAR); BACTERIA, URINE AUTO NEGATIVE (NEGATIVE); BILIRUBIN, URINE AUTO NEGATIVE (NEGATIVE); BLOOD, URINE BLOOD NEGATIVE (NEGATIVE); GLUCOSE, URINE (UA) AUTO 1+ mg/dL (NEGATIVE); KETONE, URINE AUTO TRACE mg/dL (NEGATIVE); LEUKOCYTE ESTERASE, URINE AUTO NEGATIVE (NEGATIVE); NITRITE, URINE AUTO NEGATIVE (NEGATIVE); PROTEIN, URINE AUTO NEGATIVE (NEGATIVE); RBC, URINE AUTO 0 /HPF (0-3); SPECIFIC GRAVITY URINE AUTO 1.013 (1.002-1.035); SQUAMOUS EPITHELIAL CELL UR AU 1 /HPF (0-6); UROBILINOGEN, URINE AUTO 0.2 mg/dL (0.0-2.0); WBC, URINE AUTO 2 /HPF (0-3)
[2024-11-16 16:29] LABS: AMPHETAMINES LEVEL URINE NEGATIVE (NEGATIVE); BARBITURATES URINE NEGATIVE (NEGATIVE); BENZODIAZEPINES URINE NEGATIVE (NEGATIVE); COCAINE METABOLITE URINE NEGATIVE (NEGATIVE); METHADONE URINE NEGATIVE (NEGATIVE); PHENCYCLIDINE URINE NEGATIVE (NEGATIVE)
[2024-11-16 16:33] LABS: CANNABINOIDS URINE POSITIVE (NEGATIVE); OPIATES URINE POSITIVE (NEGATIVE)
[2024-11-16 17:23] LABS: CALCIUM LEVEL 8.3 MG/DL (8.5-10.1); CARBON DIOXIDE LEVEL 23.0 MMOL/L (20-31); CHLORIDE LEVEL 103.0 MMOL/L (98-107); CREATININE FOR GFR 1.39 MG/DL (0.55-1.30); GLOMERULAR FILTRATION RATE 45.7 (>51); PHOSPHORUS LEVEL 2.2 MG/DL (2.5-4.9); POTASSIUM SERUM 4.4 MMOL/L (3.5-5.1); SODIUM LEVEL 135.0 MMOL/L (136-145)
[2024-11-16] MEDS: INSULIN LISPRO (NovoLOG) PER UNIT SC SCH (18:00)
[2024-11-17] VITALS (8 sets, daily range): BP systolic 107–171; BP diastolic 62–95; TEMP 98–98.6; O2SAT 99–100
[2024-11-17 05:11] LABS: BASO # 0.1 10^3/uL (0.0-0.2); BASO % 0.7 % (0.0-1.0); EOS # 0.1 10^3/uL (0.0-0.5); EOS % 1.9 % (0.0-3.0); LYMPH # 2.3 10^3/uL (1.5-5.0); LYMPH % 33.6 % (24.0-44.0); MONO # 0.5 10^3/uL (0.0-0.8); MONO % 7.7 % (2.0-8.0); NEUTROPHILS # 3.7 10^3/uL (1.5-8.5); NEUTROPHILS % 55.8 % (36.0-66.0); PLATELET COUNT, AUTOMATED 233 10^3/uL (150-450)
[2024-11-17 05:36] LABS: ALT/SGPT 19.0 U/L (7.0-40); AST/SGOT 21.0 U/L (<34); CALCIUM LEVEL 8.7 MG/DL (8.5-10.1); CARBON DIOXIDE LEVEL 23.0 MMOL/L (20-31); CHLORIDE LEVEL 106.0 MMOL/L (98-107); CREATININE FOR GFR 1.52 MG/DL (0.55-1.30); GLOMERULAR FILTRATION RATE 41.0 (>51); MAGNESIUM LEVEL 1.6 MG/DL (1.8-2.4); POTASSIUM SERUM 4.6 MMOL/L (3.5-5.1); SODIUM LEVEL 139.0 MMOL/L (136-145)
[2024-11-17] MEDS: NS (Normal Saline) 0.9% 1,000 ML IV ONE (08:15)
[2024-11-17] MEDS: NS (Normal Saline) 0.9% 1,000 ML IV SCH (08:22)
[2024-11-17] MEDS: HYDROMORPHONE HCL 0.5 MG/0.5 ML SYRINGE IV PRN (14:55)
[2024-11-17 15:23] LABS: CALCIUM LEVEL 8.7 MG/DL (8.5-10.1); CARBON DIOXIDE LEVEL 19.0 MMOL/L (20-31); CHLORIDE LEVEL 105.0 MMOL/L (98-107); CREATININE FOR GFR 1.26 MG/DL (0.55-1.30); GLOMERULAR FILTRATION RATE 51.4 (>51); POTASSIUM SERUM 3.8 MMOL/L (3.5-5.1); SODIUM LEVEL 137.0 MMOL/L (136-145)
[2024-11-17] MEDS: MAG SULF 1GM/100ML (MAG RUN) 1 GM in IV 1 EA IV SCH (16:12)
[2024-11-17] MEDS: SODIUM BICARBONATE 75 MEQ in NS 0.45% 1,000 ML IV SCH (17:35)
[2024-11-17 21:56] LABS: CALCIUM LEVEL 8.5 MG/DL (8.5-10.1); CARBON DIOXIDE LEVEL 20.0 MMOL/L (20-31); CHLORIDE LEVEL 103.0 MMOL/L (98-107); CREATININE FOR GFR 1.18 MG/DL (0.55-1.30); GLOMERULAR FILTRATION RATE 55.6 (>51); POTASSIUM SERUM 4.0 MMOL/L (3.5-5.1); SODIUM LEVEL 136.0 MMOL/L (136-145)
[2024-11-18 00:16] VITALS: BP 138/85; TEMP 98.4; O2SAT 100
[2024-11-18 03:48] VITALS: BP 143/85; TEMP 98.5; O2SAT 100
[2024-11-18 07:36] VITALS: BP 167/97; TEMP 98.2; O2SAT 100
[2024-11-18 08:46] LABS: CALCIUM LEVEL 8.7 MG/DL (8.5-10.1); CARBON DIOXIDE LEVEL 26.0 MMOL/L (20-31); CHLORIDE LEVEL 103.0 MMOL/L (98-107); CREATININE FOR GFR 1.2 MG/DL (0.55-1.30); GLOMERULAR FILTRATION RATE 54.5 (>51); MAGNESIUM LEVEL 1.7 MG/DL (1.8-2.4); POTASSIUM SERUM 3.6 MMOL/L (3.5-5.1); SODIUM LEVEL 139.0 MMOL/L (136-145)
[2024-11-18] MEDS: MAG SULF 1GM/100ML (MAG RUN) 1 GM in IV 1 EA IV SCH (10:35)
[2024-11-18 11:48] VITALS: BP 148/93; TEMP 98; O2SAT 100
[2024-11-18] MEDS ORDERED: REGL10TA6 PO (12:26)
[2024-11-18] MEDS ORDERED: MAGN400T35 PO (13:24)
== END 2024-11-18 13:52 | disposition home or self-care (01) | DRG 420 ==
LOC: M ED 20:54 → M ED INP 11-16 00:34 → M ICU 11-16 07:13
PROVIDERS: ADMIT Internal Medicine; ATTEND Student in an Organized Health Care Education/Training Program
DX: E10.10 Type 1 diabetes mellitus with ketoacidosis without coma (principal); N17.9 Acute kidney failure, unspecified; N18.30 Chronic kidney disease, stage 3 unspecified; E10.22 Type 1 diabetes mellitus with diabetic chronic kidney disease; E10.43 Type 1 diabetes mellitus with diabetic autonomic (poly)neuropathy; I48.0 Paroxysmal atrial fibrillation; F12.188 Cannabis abuse with other cannabis-induced disorder; K21.9 Gastro-esophageal reflux disease without esophagitis; R11.2 Nausea with vomiting, unspecified; D63.1 Anemia in chronic kidney disease; Z91.148 Patient's other noncompliance with medication regimen for other reason; Z91.018 Allergy to other foods; Z79.4 Long term (current) use of insulin; Z79.899 Other long term (current) drug therapy; Z88.8 Allergy status to other drugs, medicaments and biological substances

== ENCOUNTER 2024-11-22 22:13 | Observation (INO) | payer OTHER ==
[~2024-11-22] VITALS: Ht 170.2 cm; Wt 63.8 kg
[2024-11-22 22:52] LABS: BASO # 0.1 10^3/uL (0.0-0.2); BASO % 0.8 % (0.0-1.0); EOS # 0.1 10^3/uL (0.0-0.5); EOS % 0.7 % (0.0-3.0); LYMPH # 1.1 10^3/uL (1.5-5.0); LYMPH % 14.9 % (24.0-44.0); MONO # 0.5 10^3/uL (0.0-0.8); MONO % 6.3 % (2.0-8.0); NEUTROPHILS # 5.5 10^3/uL (1.5-8.5); NEUTROPHILS % 77.0 % (36.0-66.0); PLATELET COUNT, AUTOMATED 371 10^3/uL (150-450)
[2024-11-22 23:07] LABS: ALT/SGPT 28.0 U/L (7.0-40); AST/SGOT 27.0 U/L (<34); CALCIUM LEVEL 9.4 MG/DL (8.5-10.1); CARBON DIOXIDE LEVEL 21.0 MMOL/L (20-31); CHLORIDE LEVEL 97.0 MMOL/L (98-107); CREATININE FOR GFR 1.3 MG/DL (0.55-1.30); GLOMERULAR FILTRATION RATE 49.5 (>51); POTASSIUM SERUM 4.4 MMOL/L (3.5-5.1); SODIUM LEVEL 134.0 MMOL/L (136-145)
[2024-11-22 23:14] LABS: VENOUS BASE EXCESS -5.1 (-2.0-2.0); VENOUS HCO3 18.4 MMOL/L (23.0-27.0); VENOUS O2 SATURATION 93.5 % (60.0-80.0); VENOUS PARTIAL PRESSURE CO2 29.5 mmHg (38.0-50.0); VENOUS PARTIAL PRESSURE O2 65.7 mmHg (30.0-50.0); VENOUS PH 7.414 UNITS (7.330-7.430); VENOUS STANDARD HCO3 20.2 MMOL/L; VENOUS TOTAL CO2 19.4 MMOL/L (24.0-28.0)
[2024-11-22] MEDS: NS (Normal Saline) 0.9% 1,000 ML IV ONE (23:15)
[2024-11-22] MEDS: MORPHINE 2 MG/ML 1 ML VIAL IV PRN (23:16)
[2024-11-22] MEDS ORDERED: ISOVUE-370 76% 100 ML VIAL As Ordered ONE (23:52)
[2024-11-23 00:08] LABS: ESTIMATED AVERAGE GLUCOSE 226.0 MG/DL (60-110)
[2024-11-23 00:34] LABS: OSMOLALITY SERUM 300.0 MOSM/KG (275-295)
[2024-11-23 00:48] LABS: CK-MB VALUE MASS < 1.0 NG/ML (<3.6); CPK CREATINE PHOSPHOKINASE 54 U/L (34-145)
[2024-11-23] MEDS: ACETAMINOPHEN *IV* 1,000 MG in IV 1 EA IV ONE (01:02)
[2024-11-23 02:30] LABS: ACETONE/KETONE 3.92 MMOL/L (0.02-0.27)
[2024-11-23 03:08] LABS: KETONE, URINE AUTO RFX 2+ mg/dL (NEGATIVE); LEUKOCYTE ESTERASE UR AUTO RFX NEGATIVE (NEGATIVE); MUCUS, URINE RFX SMALL (NEGATIVE); NITRITE, URINE AUTO RFX NEGATIVE (NEGATIVE); RBC, URINE AUTO RFX 0 /HPF (0-3); SQUAM EPITHELIAL CELL UR AURFX 0 /HPF (0-6); WBC, URINE AUTO RFX 1 /HPF (0-3)
[2024-11-23 03:20] LABS: CK-MB VALUE MASS < 1.0 NG/ML (<3.6)
[2024-11-23 03:27] LABS: CPK CREATINE PHOSPHOKINASE 42 U/L (34-145)
[2024-11-23 03:30] LABS: AMPHETAMINES LEVEL URINE NEGATIVE (NEGATIVE); BARBITURATES URINE NEGATIVE (NEGATIVE); BENZODIAZEPINES URINE NEGATIVE (NEGATIVE); COCAINE METABOLITE URINE NEGATIVE (NEGATIVE); METHADONE URINE NEGATIVE (NEGATIVE); PHENCYCLIDINE URINE NEGATIVE (NEGATIVE)
[2024-11-23 03:38] LABS: CANNABINOIDS URINE POSITIVE (NEGATIVE); OPIATES URINE POSITIVE (NEGATIVE)
[2024-11-23] MEDS ORDERED: METOCLOPRAMIDE 5 MG TAB PO ONE (05:10)
[2024-11-23] MEDS ORDERED: PILL CUTTER 1 EACH XX PRN (05:35)
[2024-11-23] MEDS: METOCLOPRAMIDE 10 MG TAB PO ONE (05:41)
[2024-11-23] MEDS ORDERED: GLUCAGON INJ 1 MG VIAL SC PRN (06:15)
[2024-11-23] MEDS ORDERED: MORPHINE 2 MG/ML 1 ML VIAL IV PRN (06:15)
[2024-11-23] MEDS ORDERED: GLUCOSE 4 GM CHEW PO PRN (06:15)
[2024-11-23] MEDS ORDERED: MAALOX 30 ML SUSP *UDC PO PRN (06:15)
[2024-11-23] MEDS ORDERED: MOM 30 ML SUSPENSION UDC PO PRN (06:15)
[2024-11-23] MEDS ORDERED: ACETAMINOPHEN 325 MG TAB PO PRN (06:15)
[2024-11-23] MEDS ORDERED: DEXTROSE 50% 50 ML SYRINGE IV PRN (06:15)
[2024-11-23] MEDS: LR 1,000 ML IV SCH (06:37)
[2024-11-23] MEDS: INSULIN LISPRO (NovoLOG) PER UNIT SC SCH (06:45)
[2024-11-23] MEDS: MORPHINE 2 MG/ML 1 ML VIAL IV ONE (07:55)
[2024-11-23] MEDS ORDERED: METO10ELUD PO (07:59)
[2024-11-23] MEDS ORDERED: MAGN400T2 PO (07:59)
[2024-11-23] MEDS ORDERED: HOME MED LIST COMPLETE! XX SCH (08:00)
[2024-11-23 08:08] LABS: BASO # 0.0 10^3/uL (0.0-0.2); BASO % 0.7 % (0.0-1.0); EOS # 0.1 10^3/uL (0.0-0.5); EOS % 1.1 % (0.0-3.0); LYMPH # 1.1 10^3/uL (1.5-5.0); LYMPH % 20.4 % (24.0-44.0); MONO # 0.3 10^3/uL (0.0-0.8); MONO % 5.6 % (2.0-8.0); NEUTROPHILS # 4.0 10^3/uL (1.5-8.5); NEUTROPHILS % 72.0 % (36.0-66.0); PLATELET COUNT, AUTOMATED 310 10^3/uL (150-450)
[2024-11-23] MEDS: PANTOPRAZOLE 40MG VIAL IV SCH (08:24)
[2024-11-23] MEDS: DOCUSATE SODIUM 100 MG CAPSULE PO SCH (08:24)
[2024-11-23] MEDS: MAGNESIUM OXIDE 400 MG TAB PO SCH (08:27)
[2024-11-23 08:34] LABS: ALT/SGPT 23.0 U/L (7.0-40); AST/SGOT 21.0 U/L (<34); CALCIUM LEVEL 8.6 MG/DL (8.5-10.1); CARBON DIOXIDE LEVEL 18.0 MMOL/L (20-31); CHLORIDE LEVEL 102.0 MMOL/L (98-107); CREATININE FOR GFR 1.28 MG/DL (0.55-1.30); GLOMERULAR FILTRATION RATE 50.4 (>51); POTASSIUM SERUM 3.6 MMOL/L (3.5-5.1); SODIUM LEVEL 136.0 MMOL/L (136-145)
[2024-11-23] MEDS: NS (Normal Saline) 0.9% 1,000 ML IV ONE (09:58)
[2024-11-23] MEDS ORDERED: LanTUS (INSULIN GLARGINE INJ) 1 UNITS/0.01 ML SC SCH ×2 (10:25→21:00)
[2024-11-23 10:59] LABS: CALCIUM LEVEL 8.6 MG/DL (8.5-10.1); CARBON DIOXIDE LEVEL 24.0 MMOL/L (20-31); CHLORIDE LEVEL 101.0 MMOL/L (98-107); CREATININE FOR GFR 1.28 MG/DL (0.55-1.30); GLOMERULAR FILTRATION RATE 50.4 (>51); POTASSIUM SERUM 3.7 MMOL/L (3.5-5.1); SODIUM LEVEL 137.0 MMOL/L (136-145)
[2024-11-23] MEDS ORDERED: INSULIN LISPRO (NovoLOG) PER UNIT SC SCH (12:00)
[2024-11-23 12:15] VITALS: BP 153/79; TEMP 98.3; O2SAT 100
[2024-11-23] MEDS ORDERED: RIVAROXABAN 10MG TAB PO SCH (18:00)
== END 2024-11-23 12:18 | disposition home or self-care (01) ==
LOC: M ED 22:13 → M ED INP 22:14
PROVIDERS: ADMIT Student in an Organized Health Care Education/Training Program; ATTEND Student in an Organized Health Care Education/Training Program
DX: R10.10 Upper abdominal pain, unspecified (principal); K31.84 Gastroparesis; R11.15 Cyclical vomiting syndrome unrelated to migraine; F12.188 Cannabis abuse with other cannabis-induced disorder; E10.9 Type 1 diabetes mellitus without complications; D64.9 Anemia, unspecified; E86.0 Dehydration; N18.30 Chronic kidney disease, stage 3 unspecified; Z87.19 Personal history of other diseases of the digestive system; Z86.39 Personal history of other endocrine, nutritional and metabolic disease; Z87.891 Personal history of nicotine dependence; Z83.3 Family history of diabetes mellitus; Z88.8 Allergy status to other drugs, medicaments and biological substances; Z91.014 Allergy to mammalian meats; Z79.4 Long term (current) use of insulin
CPT/HCPCS: 36415; 71045; 74177; 80048; 80053; 80076; 80307; 81001; 82010; 82550; 82553; 82803; 83036; 83690; 83930; 84484; 85025; 93005; 93041; 94760; 96365; 96375; 96376; 99285; J0131; J1815; J2470; J2765; Q9967

== ENCOUNTER 2024-11-24 20:03 | Observation (INO) | payer OTHER ==
[~2024-11-24] VITALS: Ht 170.2 cm; Wt 64.5 kg
[~2024-11-24 20:03] MED LIST changes: +METO10ELUD PO
[2024-11-24 21:18] LABS: VENOUS BASE EXCESS -5.0 (-2.0-2.0); VENOUS HCO3 20.5 MMOL/L (23.0-27.0); VENOUS O2 SATURATION 95.9 % (60.0-80.0); VENOUS PARTIAL PRESSURE CO2 39.6 mmHg (38.0-50.0); VENOUS PARTIAL PRESSURE O2 86.9 mmHg (30.0-50.0); VENOUS PH 7.331 UNITS (7.330-7.430); VENOUS STANDARD HCO3 20.3 MMOL/L; VENOUS TOTAL CO2 21.7 MMOL/L (24.0-28.0)
[2024-11-24 21:27] LABS: BASO # 0.0 10^3/uL (0.0-0.2); BASO % 0.6 % (0.0-1.0); EOS # 0.1 10^3/uL (0.0-0.5); EOS % 1.9 % (0.0-3.0); LYMPH # 1.3 10^3/uL (1.5-5.0); LYMPH % 19.9 % (24.0-44.0); MONO # 0.6 10^3/uL (0.0-0.8); MONO % 10.2 % (2.0-8.0); NEUTROPHILS # 4.2 10^3/uL (1.5-8.5); NEUTROPHILS % 67.1 % (36.0-66.0); PLATELET COUNT, AUTOMATED 373 10^3/uL (150-450)
[2024-11-24 22:01] LABS: ALT/SGPT 23.0 U/L (7.0-40); AST/SGOT 23.0 U/L (<34); CALCIUM LEVEL 8.9 MG/DL (8.5-10.1); CARBON DIOXIDE LEVEL 21.0 MMOL/L (20-31); CHLORIDE LEVEL 100.0 MMOL/L (98-107); CREATININE FOR GFR 1.28 MG/DL (0.55-1.30); GLOMERULAR FILTRATION RATE 50.4 (>51); POTASSIUM SERUM 4.0 MMOL/L (3.5-5.1); SODIUM LEVEL 136.0 MMOL/L (136-145)
[2024-11-25] MEDS: MORPHINE 4 MG/ML 1 ML VIAL IV PRN ×2 (00:05→10:02)
[2024-11-25 00:52] LABS: OSMOLALITY SERUM 303.0 MOSM/KG (275-295)
[2024-11-25 00:58] LABS: ACETONE/KETONE 2.28 MMOL/L (0.02-0.27)
[2024-11-25] MEDS: NS (Normal Saline) 0.9% 1,000 ML IV ONE (01:50)
[2024-11-25 03:46] LABS: KETONE, URINE AUTO RFX 2+ mg/dL (NEGATIVE); LEUKOCYTE ESTERASE UR AUTO RFX NEGATIVE (NEGATIVE); NITRITE, URINE AUTO RFX NEGATIVE (NEGATIVE); RBC, URINE AUTO RFX 0 /HPF (0-3); SQUAM EPITHELIAL CELL UR AURFX 0 /HPF (0-6); WBC, URINE AUTO RFX 2 /HPF (0-3)
[2024-11-25] MEDS ORDERED: MAALOX 30 ML SUSP *UDC PO PRN (05:20)
[2024-11-25] MEDS ORDERED: MOM 30 ML SUSPENSION UDC PO PRN (05:20)
[2024-11-25] MEDS ORDERED: NS (Normal Saline) 0.9% 1,000 ML IV ONE (05:20)
[2024-11-25] MEDS ORDERED: ACETAMINOPHEN 325 MG TAB PO PRN (05:20)
[2024-11-25] MEDS: NS (Normal Saline) 0.9% 1,000 ML IV SCH (05:58)
[2024-11-25] MEDS ORDERED: DEXTROSE 50% 50 ML SYRINGE IV PRN (07:20)
[2024-11-25] MEDS ORDERED: GLUCAGON INJ 1 MG VIAL SC PRN ×2 (07:20→18:20)
[2024-11-25] MEDS ORDERED: GLUCOSE 4 GM CHEW PO PRN ×2 (07:20→18:20)
[2024-11-25] MEDS ORDERED: HOME MED LIST COMPLETE! XX SCH (08:10)
[2024-11-25] MEDS: PANTOPRAZOLE 40MG VIAL IV SCH (08:12)
[2024-11-25] MEDS: DOCUSATE SODIUM 100 MG CAPSULE PO SCH (08:12)
[2024-11-25] MEDS: INSULIN LISPRO (NovoLOG) PER UNIT SC SCH ×2 (08:13→20:29)
[2024-11-25] MEDS ORDERED: MORPHINE 2 MG/ML 1 ML VIAL IV PRN (08:50)
[2024-11-25] MEDS ORDERED: METOCLOPRAMIDE 10 MG TAB PO PRN (08:50)
[2024-11-25] MEDS ORDERED: RIVAROXABAN 10MG TAB PO SCH (09:00)
[2024-11-25] MEDS: MAGNESIUM OXIDE 400 MG TAB PO SCH (09:55)
[2024-11-25] MEDS: INSULIN GLARGINE-YFGN 1 UNITS/0.01 ML SC SCH (09:55)
[2024-11-25 15:45] VITALS: BP 148/80; TEMP 97.2; O2SAT 100
[2024-11-25] MEDS: INSULIN LISPRO (NovoLOG) PER UNIT SC ONE (18:47)
[2024-11-25 20:18] VITALS: BP 152/66; TEMP 98.1; O2SAT 100
[2024-11-26 03:44] VITALS: BP 158/92; TEMP 98.1; O2SAT 98
[2024-11-26 06:34] LABS: PLATELET COUNT, AUTOMATED 339 10^3/uL (150-450)
[2024-11-26 07:10] LABS: ALT/SGPT 20.0 U/L (7.0-40); AST/SGOT 18.0 U/L (<34); CALCIUM LEVEL 8.7 MG/DL (8.5-10.1); CARBON DIOXIDE LEVEL 18.0 MMOL/L (20-31); CHLORIDE LEVEL 106.0 MMOL/L (98-107); CREATININE FOR GFR 1.14 MG/DL (0.55-1.30); GLOMERULAR FILTRATION RATE 57.9 (>51); POTASSIUM SERUM 3.9 MMOL/L (3.5-5.1); SODIUM LEVEL 139.0 MMOL/L (136-145)
[2024-11-26] MEDS: INSULIN LISPRO (NovoLOG) PER UNIT SC SCH (07:30)
[2024-11-26] MEDS: DEXTROSE 50% 50 ML SYRINGE IV PRN (08:32)
[2024-11-26] MEDS: KETOROLAC 30 MG/ML 1 ML VIAL IV ONE (10:52)
[2024-11-26 12:00] VITALS: BP 159/94; TEMP 97.7; O2SAT 98
[2024-11-26 21:07] VITALS: BP 161/95; TEMP 99; O2SAT 100
[2024-11-27 01:20] VITALS: BP 143/87
[2024-11-27 04:09] VITALS: BP 154/77; TEMP 99; O2SAT 100
[2024-11-27 06:41] LABS: PLATELET COUNT, AUTOMATED 274 10^3/uL (150-450)
[2024-11-27 07:16] LABS: ALT/SGPT 18.0 U/L (7.0-40); AST/SGOT 18.0 U/L (<34); CALCIUM LEVEL 8.3 MG/DL (8.5-10.1); CARBON DIOXIDE LEVEL 20.0 MMOL/L (20-31); CHLORIDE LEVEL 105.0 MMOL/L (98-107); CREATININE FOR GFR 1.15 MG/DL (0.55-1.30); GLOMERULAR FILTRATION RATE 57.3 (>51); POTASSIUM SERUM 3.3 MMOL/L (3.5-5.1); SODIUM LEVEL 138.0 MMOL/L (136-145)
[2024-11-27] MEDS ORDERED: traMADol 50 MG TAB PO PRN (07:25)
[2024-11-27] MEDS: POTASSIUM CHLORIDE 10MEQ SR TABLET PO ONE (08:50)
[2024-11-27] MEDS ORDERED: TRAM50TA2 PO (09:59)
[2024-11-27] MEDS ORDERED: METO10TA2 PO (11:12)
== END 2024-11-27 11:10 | disposition home or self-care (01) ==
LOC: M ED 20:03 → M ED INP 11-25 05:16 → M MSPAV 11-25 15:43
PROVIDERS: ADMIT Student in an Organized Health Care Education/Training Program; ATTEND Internal Medicine
DX: E10.43 Type 1 diabetes mellitus with diabetic autonomic (poly)neuropathy (principal); F12.188 Cannabis abuse with other cannabis-induced disorder; R11.2 Nausea with vomiting, unspecified; R11.15 Cyclical vomiting syndrome unrelated to migraine; E10.649 Type 1 diabetes mellitus with hypoglycemia without coma; R63.8 Other symptoms and signs concerning food and fluid intake; Z91.148 Patient's other noncompliance with medication regimen for other reason; E83.42 Hypomagnesemia; R10.9 Unspecified abdominal pain; R00.0 Tachycardia, unspecified; D63.1 Anemia in chronic kidney disease; I48.0 Paroxysmal atrial fibrillation; K29.70 Gastritis, unspecified, without bleeding; N18.30 Chronic kidney disease, stage 3 unspecified; Z83.3 Family history of diabetes mellitus; Z88.5 Allergy status to narcotic agent; Z91.014 Allergy to mammalian meats; Z79.4 Long term (current) use of insulin
CPT/HCPCS: 36415; 80048; 80053; 80076; 81001; 82010; 82803; 83605; 83690; 83930; 85025; 85027; 93041; 96361; 96374; 96375; 96376; 99285; J1815; J1885; J2470; J2765

== ENCOUNTER 2024-12-05 16:19 | Emergency (ER) | payer OTHER ==
[~2024-12-05] VITALS: Ht 170.2 cm; Wt 64.2 kg
[2024-12-05] MEDS: NS (Normal Saline) 0.9% 1,000 ML IV ONE (16:50)
[2024-12-05] MEDS: MORPHINE 4 MG/ML 1 ML VIAL IV PRN (16:50)
[2024-12-05 17:37] LABS: KETONE, URINE AUTO RFX TRACE mg/dL (NEGATIVE); LEUKOCYTE ESTERASE UR AUTO RFX NEGATIVE (NEGATIVE); NITRITE, URINE AUTO RFX NEGATIVE (NEGATIVE); RBC, URINE AUTO RFX 0 /HPF (0-3); SQUAM EPITHELIAL CELL UR AURFX 0 /HPF (0-6); WBC, URINE AUTO RFX 0 /HPF (0-3)
[2024-12-05 17:59] LABS: VENOUS BASE EXCESS 0.8 (-2.0-2.0); VENOUS HCO3 26.3 MMOL/L (23.0-27.0); VENOUS O2 SATURATION 59.1 % (60.0-80.0); VENOUS PARTIAL PRESSURE CO2 46.3 mmHg (38.0-50.0); VENOUS PARTIAL PRESSURE O2 34.0 mmHg (30.0-50.0); VENOUS PH 7.372 UNITS (7.330-7.430); VENOUS STANDARD HCO3 24.6 MMOL/L; VENOUS TOTAL CO2 27.7 MMOL/L (24.0-28.0)
[2024-12-05 18:06] LABS: BASO # 0.1 10^3/uL (0.0-0.2); BASO % 0.7 % (0.0-1.0); EOS # 0.1 10^3/uL (0.0-0.5); EOS % 0.7 % (0.0-3.0); LYMPH # 1.4 10^3/uL (1.5-5.0); LYMPH % 19.8 % (24.0-44.0); MONO # 0.5 10^3/uL (0.0-0.8); MONO % 7.4 % (2.0-8.0); NEUTROPHILS # 5.1 10^3/uL (1.5-8.5); NEUTROPHILS % 71.1 % (36.0-66.0); PLATELET COUNT, AUTOMATED 282 10^3/uL (150-450)
[2024-12-05 18:29] LABS: ACETONE/KETONE 0.45 MMOL/L (0.02-0.27); ALT/SGPT 23 U/L (7.0-40); AST/SGOT 24 U/L (<34); CALCIUM LEVEL 9.3 MG/DL (8.5-10.1); CARBON DIOXIDE LEVEL 25 MMOL/L (20-31); CHLORIDE LEVEL 106 MMOL/L (98-107); CREATININE FOR GFR 1.27 MG/DL (0.55-1.30); GLOMERULAR FILTRATION RATE 50.9 (>51); MAGNESIUM LEVEL 1.6 MG/DL (1.8-2.4); OSMOLALITY SERUM 302 MOSM/KG (275-295); PHOSPHORUS LEVEL 1.9 MG/DL (2.5-4.9); POTASSIUM SERUM 3.7 MMOL/L (3.5-5.1); SODIUM LEVEL 142 MMOL/L (136-145)
[2024-12-05 18:46] LABS: ESTIMATED AVERAGE GLUCOSE 214.0 MG/DL (60-110)
[2024-12-05 19:03] LABS: AMPHETAMINES LEVEL URINE NEGATIVE (NEGATIVE); BARBITURATES URINE NEGATIVE (NEGATIVE); BENZODIAZEPINES URINE NEGATIVE (NEGATIVE); METHADONE URINE NEGATIVE (NEGATIVE); PHENCYCLIDINE URINE NEGATIVE (NEGATIVE)
[2024-12-05 19:10] LABS: COCAINE METABOLITE URINE NEGATIVE (NEGATIVE)
[2024-12-05] MEDS: MAG SULF 1GM/100ML (MAG RUN) 1 GM in IV 1 EA IV ONE (19:10)
[2024-12-05 19:15] LABS: CANNABINOIDS URINE POSITIVE (NEGATIVE); OPIATES URINE POSITIVE (NEGATIVE)
[2024-12-05] MEDS: POTASSIUM PHOSPHATE INJ 20 MMOL in D5W 250 ML IV ONE (21:22)
[2024-12-05 23:38] VITALS: BP 179/87; TEMP 97.9; O2SAT 99
== END 2024-12-05 23:43 | disposition home or self-care (01) ==
LOC: M ED 16:19 → EDBD 16:19 → M ED 23:43
DX: E83.42 Hypomagnesemia (principal); E11.65 Type 2 diabetes mellitus with hyperglycemia; E83.31 Familial hypophosphatemia; E11.43 Type 2 diabetes mellitus with diabetic autonomic (poly)neuropathy; N18.30 Chronic kidney disease, stage 3 unspecified; K21.9 Gastro-esophageal reflux disease without esophagitis; F12.10 Cannabis abuse, uncomplicated; Z88.8 Allergy status to other drugs, medicaments and biological substances; Z91.014 Allergy to mammalian meats; Z79.4 Long term (current) use of insulin; Z79.899 Other long term (current) drug therapy; Z79.810 Long term (current) use of selective estrogen receptor modulators (SERMs)
CPT/HCPCS: 36415; 71045; 80047; 80048; 80076; 80307; 81001; 82010; 82150; 82803; 83036; 83605; 83690; 83735; 83930; 84100; 84145; 85025; 87040; 93005; 93041; 94760; 96361; 96365; 96366; 96375; 99285; J2765; J3475

== ENCOUNTER 2024-12-08 17:46 | Emergency (ER) | payer OTHER ==
[~2024-12-08] VITALS: Ht 170.2 cm; Wt 66.8 kg
[2024-12-08 17:55] VITALS: TEMP 99.2
[2024-12-08 18:39] LABS: BASO # 0.1 10^3/uL (0.0-0.2); BASO % 1.0 % (0.0-1.0); EOS # 0.0 10^3/uL (0.0-0.5); EOS % 0.3 % (0.0-3.0); LYMPH # 1.3 10^3/uL (1.5-5.0); LYMPH % 20.4 % (24.0-44.0); MONO # 0.6 10^3/uL (0.0-0.8); MONO % 10.1 % (2.0-8.0); NEUTROPHILS # 4.2 10^3/uL (1.5-8.5); NEUTROPHILS % 68.0 % (36.0-66.0); PLATELET COUNT, AUTOMATED 296 10^3/uL (150-450)
[2024-12-08 19:09] LABS: ALT/SGPT 22.0 U/L (7.0-40); AST/SGOT 20.0 U/L (<34); CALCIUM LEVEL 9.5 MG/DL (8.5-10.1); CARBON DIOXIDE LEVEL 20.0 MMOL/L (20-31); CHLORIDE LEVEL 99.0 MMOL/L (98-107); CREATININE FOR GFR 1.41 MG/DL (0.55-1.30); GLOMERULAR FILTRATION RATE 44.9 (>51); POTASSIUM SERUM 4.5 MMOL/L (3.5-5.1); SODIUM LEVEL 136.0 MMOL/L (136-145)
[2024-12-08 20:16] LABS: OSMOLALITY SERUM 304.0 MOSM/KG (275-295)
[2024-12-08 20:20] LABS: ACETONE/KETONE 2.94 MMOL/L (0.02-0.27)
[2024-12-08] MEDS: NS (Normal Saline) 0.9% 1,000 ML IV ONE (20:36)
[2024-12-08] MEDS: MORPHINE 2 MG/ML 1 ML VIAL IV ONE (20:37)
[2024-12-08 21:55] LABS: VENOUS BASE EXCESS -8.7 (-2.0-2.0); VENOUS HCO3 15.4 MMOL/L (23.0-27.0); VENOUS O2 SATURATION 98.9 % (60.0-80.0); VENOUS PARTIAL PRESSURE CO2 27.1 mmHg (38.0-50.0); VENOUS PARTIAL PRESSURE O2 149.1 mmHg (30.0-50.0); VENOUS PH 7.373 UNITS (7.330-7.430); VENOUS STANDARD HCO3 17.4 MMOL/L; VENOUS TOTAL CO2 16.3 MMOL/L (24.0-28.0)
[2024-12-08] MEDS: MORPHINE 4 MG/ML 1 ML VIAL IV PRN (22:14)
[2024-12-08] MEDS ORDERED: HOME MED LIST COMPLETE! XX SCH (23:15)
[2024-12-09] MEDS ORDERED: DEXTROSE 50% 50 ML SYRINGE IV PRN (00:45)
[2024-12-09] MEDS ORDERED: GLUCAGON INJ 1 MG VIAL SC PRN (00:45)
[2024-12-09] MEDS ORDERED: GLUCOSE 4 GM CHEW PO PRN (00:45)
[2024-12-09] MEDS: INSULIN LISPRO (NovoLOG) PER UNIT SC ONE (01:00)
[2024-12-09] MEDS: NS (Normal Saline) 0.9% 1,000 ML IV SCH (01:12)
[2024-12-09] MEDS: traMADol 50 MG TAB PO PRN (04:34)
[2024-12-09 05:51] LABS: VENOUS BASE EXCESS -9.4 (-2.0-2.0); VENOUS HCO3 16.2 MMOL/L (23.0-27.0); VENOUS O2 SATURATION 97.4 % (60.0-80.0); VENOUS PARTIAL PRESSURE CO2 33.8 mmHg (38.0-50.0); VENOUS PARTIAL PRESSURE O2 106.4 mmHg (30.0-50.0); VENOUS PH 7.298 UNITS (7.330-7.430); VENOUS STANDARD HCO3 16.9 MMOL/L; VENOUS TOTAL CO2 17.2 MMOL/L (24.0-28.0)
[2024-12-09] MEDS: INSULIN LISPRO (NovoLOG) PER UNIT SC SCH (06:00)
[2024-12-09 06:20] LABS: CALCIUM LEVEL 8.5 MG/DL (8.5-10.1); CARBON DIOXIDE LEVEL 16 MMOL/L (20-31); CHLORIDE LEVEL 104 MMOL/L (98-107); CREATININE FOR GFR 1.18 MG/DL (0.55-1.30); GLOMERULAR FILTRATION RATE 55.6 (>51); MAGNESIUM LEVEL 1.4 MG/DL (1.8-2.4); POTASSIUM SERUM 4.2 MMOL/L (3.5-5.1); SODIUM LEVEL 138 MMOL/L (136-145)
[2024-12-09 06:45] VITALS: BP 129/67
[2024-12-09 07:03] LABS: ACETONE/KETONE > 4.50 MMOL/L (0.02-0.27)
[2024-12-09 07:37] VITALS: O2SAT 100
[2024-12-09] MEDS ORDERED: INSULIN GLARGINE-YFGN 1 UNITS/0.01 ML SC SCH (09:00)
[2024-12-09] MEDS ORDERED: MAGNESIUM OXIDE 400 MG TAB PO SCH (09:00)
[2024-12-09] MEDS ORDERED: INSULIN LISPRO (NovoLOG) PER UNIT SC SCH (09:00)
== END 2024-12-09 07:58 | disposition left against medical advice (07) ==
LOC: M ED 17:46 → EDBD 17:46 → M ED 12-09 07:58
DX: R10.84 Generalized abdominal pain (principal); E10.9 Type 1 diabetes mellitus without complications; N18.30 Chronic kidney disease, stage 3 unspecified; Z88.8 Allergy status to other drugs, medicaments and biological substances; Z91.014 Allergy to mammalian meats; Z79.4 Long term (current) use of insulin; Z79.899 Other long term (current) drug therapy; Z79.810 Long term (current) use of selective estrogen receptor modulators (SERMs); Z53.9 Procedure and treatment not carried out, unspecified reason
CPT/HCPCS: 80048; 80076; 82010; 82803; 83690; 83735; 83930; 85025; 96372; 96374; 96375; 96376; 99285; J1815; J2765

== ENCOUNTER 2024-12-11 16:35 | Observation (INO) | payer OTHER ==
[~2024-12-11] VITALS: Ht 170.2 cm; Wt 61.8 kg
[2024-12-11] MEDS: NS (Normal Saline) 0.9% 1,000 ML IV ONE (17:15)
[2024-12-11] MEDS: MORPHINE 4 MG/ML 1 ML VIAL IV PRN (17:16)
[2024-12-11 17:19] LABS: VENOUS BASE EXCESS -2.1 (-2.0-2.0); VENOUS HCO3 22.8 MMOL/L (23.0-27.0); VENOUS O2 SATURATION 79.5 % (60.0-80.0); VENOUS PARTIAL PRESSURE CO2 39.5 mmHg (38.0-50.0); VENOUS PARTIAL PRESSURE O2 44.6 mmHg (30.0-50.0); VENOUS PH 7.379 UNITS (7.330-7.430); VENOUS STANDARD HCO3 22.4 MMOL/L; VENOUS TOTAL CO2 24.0 MMOL/L (24.0-28.0)
[2024-12-11 17:23] LABS: BASO # 0.1 10^3/uL (0.0-0.2); BASO % 1.0 % (0.0-1.0); EOS # 0.1 10^3/uL (0.0-0.5); EOS % 1.0 % (0.0-3.0); LYMPH # 1.5 10^3/uL (1.5-5.0); LYMPH % 24.1 % (24.0-44.0); MONO # 0.5 10^3/uL (0.0-0.8); MONO % 8.3 % (2.0-8.0); NEUTROPHILS # 4.1 10^3/uL (1.5-8.5); NEUTROPHILS % 65.4 % (36.0-66.0); PLATELET COUNT, AUTOMATED 294 10^3/uL (150-450)
[2024-12-11 17:41] LABS: ESTIMATED AVERAGE GLUCOSE 209.0 MG/DL (60-110)
[2024-12-11] MEDS: LIDOCAINE 2% 5 ML JELLY UROJET TOP ONE (17:45)
[2024-12-11 17:52] LABS: OSMOLALITY SERUM 309.0 MOSM/KG (275-295)
[2024-12-11 17:58] LABS: ACETONE/KETONE 2.38 MMOL/L (0.02-0.27)
[2024-12-11 18:00] LABS: ALT/SGPT 20.0 U/L (7.0-40); AST/SGOT 18.0 U/L (<34); CALCIUM LEVEL 10.0 MG/DL (8.5-10.1); CARBON DIOXIDE LEVEL 23.0 MMOL/L (20-31); CHLORIDE LEVEL 101.0 MMOL/L (98-107); CREATININE FOR GFR 1.25 MG/DL (0.55-1.30); GLOMERULAR FILTRATION RATE 51.9 (>51); MAGNESIUM LEVEL 1.5 MG/DL (1.8-2.4); PHOSPHORUS LEVEL 3.0 MG/DL (2.5-4.9); POTASSIUM SERUM 3.9 MMOL/L (3.5-5.1); SODIUM LEVEL 139.0 MMOL/L (136-145)
[2024-12-11 18:18] LABS: KETONE, URINE AUTO RFX 1+ mg/dL (NEGATIVE); LEUKOCYTE ESTERASE UR AUTO RFX NEGATIVE (NEGATIVE); NITRITE, URINE AUTO RFX NEGATIVE (NEGATIVE); RBC, URINE AUTO RFX 1 /HPF (0-3); SQUAM EPITHELIAL CELL UR AURFX 0 /HPF (0-6); WBC, URINE AUTO RFX 0 /HPF (0-3)
[2024-12-11] MEDS: MAG SULF 1GM/100ML (MAG RUN) 1 GM in IV 1 EA IV ONE (18:28)
[2024-12-11 18:35] LABS: AMPHETAMINES LEVEL URINE NEGATIVE (NEGATIVE); BARBITURATES URINE NEGATIVE (NEGATIVE); BENZODIAZEPINES URINE NEGATIVE (NEGATIVE); COCAINE METABOLITE URINE NEGATIVE (NEGATIVE); METHADONE URINE NEGATIVE (NEGATIVE)
[2024-12-11 18:36] LABS: CANNABINOIDS URINE POSITIVE (NEGATIVE); OPIATES URINE POSITIVE (NEGATIVE); PHENCYCLIDINE URINE NEGATIVE (NEGATIVE)
[2024-12-11] MEDS ORDERED: GLUCAGON INJ 1 MG VIAL SC PRN (19:00)
[2024-12-11] MEDS: LanTUS (INSULIN GLARGINE INJ) 1 UNITS/0.01 ML SC SCH (19:00)
[2024-12-11] MEDS ORDERED: GLUCOSE 4 GM CHEW PO PRN (19:00)
[2024-12-11] MEDS ORDERED: DEXTROSE 50% 50 ML SYRINGE IV PRN (19:00)
[2024-12-11] MEDS ORDERED: HYDROMORPHONE HCL 0.5 MG/0.5 ML SYRINGE IV PRN (20:00)
[2024-12-11] MEDS: INSULIN LISPRO (NovoLOG) PER UNIT SC SCH (20:59)
[2024-12-11] MEDS: HYDROMORPHONE HCL 0.5 MG/0.5 ML SYRINGE IV PRN (21:11)
[2024-12-11] MEDS: LR 1,000 ML IV SCH (21:13)
[2024-12-11] MEDS ORDERED: HOME MED LIST COMPLETE! XX SCH (21:40)
[2024-12-11] MEDS ORDERED: ACETAMINOPHEN *IV* 1,000 MG in IV 1 EA IV PRN (22:15)
[2024-12-11] MEDS: PANTOPRAZOLE 40MG VIAL IV SCH (22:44)
[2024-12-12 00:45] VITALS: BP 170/90; TEMP 98.2; O2SAT 98
[2024-12-12 04:37] VITALS: BP 163/93; TEMP 97.6; O2SAT 99
[2024-12-12 06:52] LABS: PLATELET COUNT, AUTOMATED 212 10^3/uL (150-450)
[2024-12-12 07:15] LABS: ALT/SGPT 18.0 U/L (7.0-40); AST/SGOT 18.0 U/L (<34); CALCIUM LEVEL 9.1 MG/DL (8.5-10.1); CARBON DIOXIDE LEVEL 23.0 MMOL/L (20-31); CHLORIDE LEVEL 104.0 MMOL/L (98-107); CREATININE FOR GFR 1.0 MG/DL (0.55-1.30); GLOMERULAR FILTRATION RATE 67.8 (>51); MAGNESIUM LEVEL 1.5 MG/DL (1.8-2.4); POTASSIUM SERUM 3.8 MMOL/L (3.5-5.1); SODIUM LEVEL 139.0 MMOL/L (136-145)
[2024-12-12 08:00] VITALS: BP 150/94; TEMP 97.5; O2SAT 100
[2024-12-12] MEDS: MAG SULF 1GM/100ML (MAG RUN) 1 GM in IV 1 EA IV ONE (09:08)
[2024-12-12] MEDS: INSULIN LISPRO (NovoLOG) PER UNIT SC SCH (09:09)
[2024-12-12 12:00] VITALS: BP 151/79; TEMP 98.2; O2SAT 100
[2024-12-20] MEDS ORDERED: TRAM50TA2 PO (11:46)
== END 2024-12-12 13:30 | disposition home or self-care (01) ==
LOC: EDBD 16:35 → M ED 16:35 → M ED INP 16:36 → M MS4PR 12-12 00:43
PROVIDERS: ADMIT Student in an Organized Health Care Education/Training Program; ATTEND Student in an Organized Health Care Education/Training Program
DX: E10.43 Type 1 diabetes mellitus with diabetic autonomic (poly)neuropathy (principal); E10.65 Type 1 diabetes mellitus with hyperglycemia; E83.42 Hypomagnesemia; B95.7 Other staphylococcus as the cause of diseases classified elsewhere; E10.10 Type 1 diabetes mellitus with ketoacidosis without coma; I48.0 Paroxysmal atrial fibrillation; F12.188 Cannabis abuse with other cannabis-induced disorder; R11.2 Nausea with vomiting, unspecified; N18.30 Chronic kidney disease, stage 3 unspecified; D50.9 Iron deficiency anemia, unspecified; D63.1 Anemia in chronic kidney disease; K21.9 Gastro-esophageal reflux disease without esophagitis; K44.9 Diaphragmatic hernia without obstruction or gangrene; K29.70 Gastritis, unspecified, without bleeding; K76.0 Fatty (change of) liver, not elsewhere classified; E73.9 Lactose intolerance, unspecified; N83.209 Unspecified ovarian cyst, unspecified side; Z83.3 Family history of diabetes mellitus; Z87.891 Personal history of nicotine dependence; Z88.8 Allergy status to other drugs, medicaments and biological substances; Z91.014 Allergy to mammalian meats; Z79.4 Long term (current) use of insulin
CPT/HCPCS: 36415; 71045; 74176; 80047; 80048; 80053; 80076; 80307; 81001; 82010; 82803; 83036; 83605; 83690; 83735; 83930; 84100; 85025; 85027; 87040; 87077; 87154; 87186; 93005; 93041; 94760; 96374; 96375; 96376; 99285; J1171; J1815; J2470; J2765; J3475

== ENCOUNTER 2024-12-15 15:49 | Observation (INO) | payer OTHER ==
[~2024-12-15] VITALS: Ht 170.2 cm; Wt 61.5 kg
[2024-12-15] MEDS: NS (Normal Saline) 0.9% 1,000 ML IV ONE ×2 (16:10→18:38)
[2024-12-15 16:46] LABS: BASO # 0.0 10^3/uL (0.0-0.2); BASO % 0.6 % (0.0-1.0); EOS # 0.1 10^3/uL (0.0-0.5); EOS % 1.6 % (0.0-3.0); LYMPH # 1.5 10^3/uL (1.5-5.0); LYMPH % 29.8 % (24.0-44.0); MONO # 0.4 10^3/uL (0.0-0.8); MONO % 7.4 % (2.0-8.0); NEUTROPHILS # 3.0 10^3/uL (1.5-8.5); NEUTROPHILS % 60.6 % (36.0-66.0); PLATELET COUNT, AUTOMATED 247 10^3/uL (150-450)
[2024-12-15 16:59] LABS: ESTIMATED AVERAGE GLUCOSE 203.0 MG/DL (60-110)
[2024-12-15 17:01] LABS: OSMOLALITY SERUM 303.0 MOSM/KG (275-295)
[2024-12-15 17:04] LABS: ALT/SGPT 19.0 U/L (7.0-40); AST/SGOT 24.0 U/L (<34); CALCIUM LEVEL 9.8 MG/DL (8.5-10.1); CARBON DIOXIDE LEVEL 26.0 MMOL/L (20-31); CHLORIDE LEVEL 104.0 MMOL/L (98-107); CREATININE FOR GFR 1.31 MG/DL (0.55-1.30); GLOMERULAR FILTRATION RATE 49.0 (>51); MAGNESIUM LEVEL 1.5 MG/DL (1.8-2.4); POTASSIUM SERUM 3.9 MMOL/L (3.5-5.1); SODIUM LEVEL 142.0 MMOL/L (136-145)
[2024-12-15 17:05] LABS: ACETONE/KETONE 0.18 MMOL/L (0.02-0.27)
[2024-12-15 17:50] LABS: VENOUS BASE EXCESS -0.6 (-2.0-2.0); VENOUS HCO3 25.1 MMOL/L (23.0-27.0); VENOUS O2 SATURATION 66.2 % (60.0-80.0); VENOUS PARTIAL PRESSURE CO2 46.4 mmHg (38.0-50.0); VENOUS PARTIAL PRESSURE O2 37.1 mmHg (30.0-50.0); VENOUS PH 7.351 UNITS (7.330-7.430); VENOUS STANDARD HCO3 23.4 MMOL/L; VENOUS TOTAL CO2 26.5 MMOL/L (24.0-28.0)
[2024-12-15] MEDS: MAG SULF 1GM/100ML (MAG RUN) 1 GM in IV 1 EA IV ONE ×2 (18:38→19:47)
[2024-12-15] MEDS: KETOROLAC 30 MG/ML 1 ML VIAL IV ONE (20:14)
[2024-12-15] MEDS: ACETAMINOPHEN *IV* 1,000 MG in IV 1 EA IV ONE (20:14)
[2024-12-16 00:34] VITALS: BP 172/98
[2024-12-16] MEDS: MORPHINE 2 MG/ML 1 ML VIAL IV ONE (00:34)
[2024-12-16] MEDS: amLODIPine 5 MG TAB PO ONE (00:34)
[2024-12-16] MEDS: traMADol 50 MG TAB (HOME DOSE PACK) PO ONE (02:40)
[2024-12-16] MEDS ORDERED: DEXTROSE 50% 50 ML SYRINGE IV PRN (04:55)
[2024-12-16] MEDS ORDERED: GLUCOSE 4 GM CHEW PO PRN (04:55)
[2024-12-16] MEDS ORDERED: GLUCAGON INJ 1 MG VIAL SC PRN (04:55)
[2024-12-16 05:57] VITALS: BP 168/91; TEMP 98.2; O2SAT 100
[2024-12-16] MEDS: KETOROLAC 30 MG/ML 1 ML VIAL IV SCH (06:00)
[2024-12-16] MEDS: INSULIN LISPRO (NovoLOG) PER UNIT SC SCH (06:00)
[2024-12-16] MEDS ORDERED: MORPHINE 4 MG/ML 1 ML VIAL IV PRN ×2 (06:15)
[2024-12-16] MEDS: NS (Normal Saline) 0.9% 1,000 ML IV SCH (06:26)
[2024-12-16 06:44] LABS: PLATELET COUNT, AUTOMATED 280 10^3/uL (150-450)
[2024-12-16] MEDS: INSULIN LISPRO (NovoLOG) PER UNIT SC ONE (06:48)
[2024-12-16 07:14] LABS: ALT/SGPT 16.0 U/L (7.0-40); AST/SGOT 19.0 U/L (<34); CALCIUM LEVEL 9.7 MG/DL (8.5-10.1); CARBON DIOXIDE LEVEL 17.0 MMOL/L (20-31); CHLORIDE LEVEL 101.0 MMOL/L (98-107); CREATININE FOR GFR 1.22 MG/DL (0.55-1.30); GLOMERULAR FILTRATION RATE 53.4 (>51); MAGNESIUM LEVEL 1.9 MG/DL (1.8-2.4); POTASSIUM SERUM 4.3 MMOL/L (3.5-5.1); SODIUM LEVEL 137.0 MMOL/L (136-145)
[2024-12-16] MEDS: LanTUS (INSULIN GLARGINE INJ) 1 UNITS/0.01 ML SC SCH (08:52)
[2024-12-16] MEDS: PANTOPRAZOLE 40MG VIAL IV SCH (08:52)
[2024-12-16] MEDS ORDERED: ENOXAPARIN 40 MG/0.4 ML SYRINGE (J1650 PER 10MG) SC SCH (09:00)
[2024-12-16] MEDS ORDERED: HOME MED LIST COMPLETE! XX SCH (11:00)
[2024-12-16 12:00] VITALS: BP 158/87; TEMP 96.9; O2SAT 100
[2024-12-16] MEDS ORDERED: LORazepam 0.5 MG TAB SL PRN (12:40)
[2024-12-16] MEDS: METOCLOPRAMIDE 10 MG TAB PO SCH (13:04)
[2024-12-16] MEDS: ULTRACET TAB PO PRN (13:05)
[2024-12-16 14:59] LABS: CALCIUM LEVEL 9.1 MG/DL (8.5-10.1); CARBON DIOXIDE LEVEL 24.0 MMOL/L (20-31); CHLORIDE LEVEL 105.0 MMOL/L (98-107); CREATININE FOR GFR 1.13 MG/DL (0.55-1.30); GLOMERULAR FILTRATION RATE 58.5 (>51); POTASSIUM SERUM 4.0 MMOL/L (3.5-5.1); SODIUM LEVEL 141.0 MMOL/L (136-145)
[2024-12-16] MEDS ORDERED: ATIV1TAB10 SL (15:51)
[2024-12-16] MEDS ORDERED: TRAM1TAB42 PO (15:51)
[2024-12-16] MEDS ORDERED: METOCLOPRAMIDE 10 MG TAB PO SCH (17:30)
[2024-12-20] MEDS ORDERED: TRAM50TA2 PO (11:46)
== END 2024-12-16 16:15 | disposition home or self-care (01) ==
LOC: EDBD 15:49 → M ED 15:49 → M ED INP 15:50 → M MS4PR 12-16 05:50
PROVIDERS: ADMIT Student in an Organized Health Care Education/Training Program; ATTEND Student in an Organized Health Care Education/Training Program
DX: E10.43 Type 1 diabetes mellitus with diabetic autonomic (poly)neuropathy (principal); E83.42 Hypomagnesemia; I48.0 Paroxysmal atrial fibrillation; N18.30 Chronic kidney disease, stage 3 unspecified; E10.10 Type 1 diabetes mellitus with ketoacidosis without coma; F12.188 Cannabis abuse with other cannabis-induced disorder; R11.2 Nausea with vomiting, unspecified; D50.9 Iron deficiency anemia, unspecified; D63.1 Anemia in chronic kidney disease; K21.9 Gastro-esophageal reflux disease without esophagitis; K44.9 Diaphragmatic hernia without obstruction or gangrene; K29.70 Gastritis, unspecified, without bleeding; E73.9 Lactose intolerance, unspecified; K76.0 Fatty (change of) liver, not elsewhere classified; Z87.891 Personal history of nicotine dependence; Z83.3 Family history of diabetes mellitus; Z91.014 Allergy to mammalian meats; Z79.4 Long term (current) use of insulin
CPT/HCPCS: 36415; 80048; 80053; 80076; 82010; 82803; 83036; 83690; 83735; 83930; 85025; 85027; 87486; 87581; 87633; 87798; 93005; 93041; 94760; 96361; 96365; 96366; 96367; 96375; 96376; 99285; J0131; J1815; J1885; J2060; J2470; J2765; J3475

== ENCOUNTER → 2024-12-22 | Outpatient (REF) | payer OTHER ==
[~2024-12-22] MED LIST changes: +ATIV1TAB10 SL; +TRAM1TAB42 PO
== END ==
LOC: M LAB REF 15:18
PROVIDERS: ATTEND Nurse Practitioner Family
DX: G89.29 Other chronic pain (principal)

== ENCOUNTER 2024-12-26 19:55 | Inpatient (IN) | payer OTHER ==
[~2024-12-26] VITALS: Ht 170.2 cm; Wt 60.5 kg
[2024-12-26 20:24] LABS: VENOUS BASE EXCESS -5.3 (-2.0-2.0); VENOUS HCO3 15.8 MMOL/L (23.0-27.0); VENOUS O2 SATURATION 89.5 % (60.0-80.0); VENOUS PARTIAL PRESSURE CO2 19.8 mmHg (38.0-50.0); VENOUS PARTIAL PRESSURE O2 55.4 mmHg (30.0-50.0); VENOUS PH 7.519 UNITS (7.330-7.430); VENOUS STANDARD HCO3 20.0 MMOL/L; VENOUS TOTAL CO2 16.4 MMOL/L (24.0-28.0)
[2024-12-26 20:32] LABS: BASO # 0.0 10^3/uL (0.0-0.2); BASO % 0.4 % (0.0-1.0); EOS # 0.0 10^3/uL (0.0-0.5); EOS % 0.0 % (0.0-3.0); LYMPH # 0.9 10^3/uL (1.5-5.0); LYMPH % 8.3 % (24.0-44.0); MONO # 0.5 10^3/uL (0.0-0.8); MONO % 5.0 % (2.0-8.0); NEUTROPHILS # 8.9 10^3/uL (1.5-8.5); NEUTROPHILS % 86.0 % (36.0-66.0); PLATELET COUNT, AUTOMATED 354 10^3/uL (150-450)
[2024-12-26] MEDS: NS (Normal Saline) 0.9% 1,000 ML IV ONE (20:33)
[2024-12-26 20:48] LABS: ESTIMATED AVERAGE GLUCOSE 197.0 MG/DL (60-110)
[2024-12-26] MEDS: MORPHINE 4 MG/ML 1 ML VIAL IV ONE (21:01)
[2024-12-26 21:47] LABS: ALT/SGPT 20 U/L (7.0-40); AST/SGOT 36 U/L (<34); CALCIUM LEVEL 8.7 MG/DL (8.5-10.1); CARBON DIOXIDE LEVEL 13 MMOL/L (20-31); CHLORIDE LEVEL 96 MMOL/L (98-107); CREATININE FOR GFR 1.42 MG/DL (0.55-1.30); GLOMERULAR FILTRATION RATE 44.5 (>51); MAGNESIUM LEVEL 1.6 MG/DL (1.8-2.4); POTASSIUM SERUM 5.8 MMOL/L (3.5-5.1); SODIUM LEVEL 132 MMOL/L (136-145)
[2024-12-26] MEDS ORDERED: INSULIN IV RATE CHANGE DOCUMENTATION ML/HR XX SCH ×2 (22:00→22:25)
[2024-12-26] MEDS ORDERED: INSULIN REGULAR IN 0.9 % NACL 100 UNIT in IV 1 EA IV SCH (22:00)
[2024-12-26 22:08] LABS: ACETONE/KETONE > 4.50 MMOL/L (0.02-0.27)
[2024-12-26 22:10] LABS: OSMOLALITY SERUM 315 MOSM/KG (275-295)
[2024-12-26] MEDS: CALCIUM GLUCONATE 1,000 MG in DEXTROSE 5% (D5W) MINI-BAG PLU 100 ML IV ONE (22:28)
[2024-12-26] MEDS: HumuLIN R (REGULAR) INSULIN (NovoLIN R) **100 U/ML** PER UNIT IV ONE (22:57)
[2024-12-26] MEDS ORDERED: NS (Normal Saline) 0.9% 1,000 ML IV ONE (23:00)
[2024-12-26] MEDS: NS (Normal Saline) 0.9% 1,000 ML IV SCH (23:00)
[2024-12-26] MEDS: INSULIN REGULAR IN 0.9 % NACL 100 UNIT in IV 1 EA IV SCH (23:03)
[2024-12-26 23:35] LABS: KETONE, URINE AUTO RFX 2+ mg/dL (NEGATIVE); LEUKOCYTE ESTERASE UR AUTO RFX NEGATIVE (NEGATIVE); MUCUS, URINE RFX SMALL (NEGATIVE); NITRITE, URINE AUTO RFX NEGATIVE (NEGATIVE); RBC, URINE AUTO RFX 0 /HPF (0-3); SQUAM EPITHELIAL CELL UR AURFX 1 /HPF (0-6); WBC, URINE AUTO RFX 2 /HPF (0-3)
[2024-12-26] MEDS ORDERED: HOME MED LIST COMPLETE! XX SCH (23:50)
[2024-12-27 02:01] LABS: VENOUS BASE EXCESS -2.0 (-2.0-2.0); VENOUS HCO3 22.4 MMOL/L (23.0-27.0); VENOUS O2 SATURATION 99.0 % (60.0-80.0); VENOUS PARTIAL PRESSURE CO2 36.7 mmHg (38.0-50.0); VENOUS PARTIAL PRESSURE O2 174.4 mmHg (30.0-50.0); VENOUS PH 7.404 UNITS (7.330-7.430); VENOUS STANDARD HCO3 22.9 MMOL/L; VENOUS TOTAL CO2 23.6 MMOL/L (24.0-28.0)
[2024-12-27] MEDS: D5W/LR 1,000 ML IV SCH (02:10)
[2024-12-27 02:45] LABS: CALCIUM LEVEL 9.5 MG/DL (8.5-10.1); CARBON DIOXIDE LEVEL 23.0 MMOL/L (20-31); CHLORIDE LEVEL 103.0 MMOL/L (98-107); CREATININE FOR GFR 1.63 MG/DL (0.55-1.30); GLOMERULAR FILTRATION RATE 37.7 (>51); PHOSPHORUS LEVEL 3.5 MG/DL (2.5-4.9); POTASSIUM SERUM 3.2 MMOL/L (3.5-5.1); SODIUM LEVEL 139.0 MMOL/L (136-145)
[2024-12-27 02:52] LABS: OSMOLALITY SERUM 303.0 MOSM/KG (275-295)
[2024-12-27] MEDS: DEXTROSE IV ONE (03:40)
[2024-12-27] MEDS: KCL 10MEQ/100ML SWI (KRUN) 10 MEQ in IV 1 EA IV SCH (03:40)
[2024-12-27] MEDS: [UNRECOGNIZED DRUG - OTHER] IV ONE (03:40)
[2024-12-27] MEDS: DEXTROSE 50% 50 ML SYRINGE IV STA ×2 (03:56→03:57)
[2024-12-27] MEDS: ACETAMINOPHEN *IV* 1,000 MG in IV 1 EA IV ONE (06:05)
[2024-12-27] MEDS ORDERED: DEXTROSE 50% 50 ML SYRINGE IV PRN (07:15)
[2024-12-27] MEDS ORDERED: GLUCOSE 4 GM CHEW PO PRN (07:15)
[2024-12-27] MEDS ORDERED: GLUCAGON INJ 1 MG VIAL SC PRN (07:15)
[2024-12-27] MEDS: PANTOPRAZOLE 40MG VIAL IV SCH (08:57)
[2024-12-27] MEDS: INSULIN LISPRO (NovoLOG) PER UNIT SC SCH (08:57)
[2024-12-27] MEDS ORDERED: RIVAROXABAN 20MG TAB PO SCH (09:00)
[2024-12-27] MEDS: LanTUS (INSULIN GLARGINE INJ) 1 UNITS/0.01 ML SC SCH (09:07)
[2024-12-27 09:21] LABS: PLATELET COUNT, AUTOMATED 355 10^3/uL (150-450)
[2024-12-27 09:51] LABS: ACETONE/KETONE 3.52 MMOL/L (0.02-0.27)
[2024-12-27 10:26] LABS: ALT/SGPT 17.0 U/L (7.0-40); AST/SGOT 30.0 U/L (<34); CALCIUM LEVEL 9.2 MG/DL (8.5-10.1); CARBON DIOXIDE LEVEL 20.0 MMOL/L (20-31); CHLORIDE LEVEL 99.0 MMOL/L (98-107); CREATININE FOR GFR 1.54 MG/DL (0.55-1.30); GLOMERULAR FILTRATION RATE 40.4 (>51); MAGNESIUM LEVEL 1.7 MG/DL (1.8-2.4); PHOSPHORUS LEVEL 3.9 MG/DL (2.5-4.9); POTASSIUM SERUM 4.5 MMOL/L (3.5-5.1); SODIUM LEVEL 135.0 MMOL/L (136-145)
[2024-12-27 11:24] LABS: OSMOLALITY SERUM 301.0 MOSM/KG (275-295)
[2024-12-27] MEDS: NS (Normal Saline) 0.9% 1,000 ML IV ONE (13:14)
[2024-12-27] MEDS: MAG SULF 1GM/100ML (MAG RUN) 1 GM in IV 1 EA IV SCH (13:14)
[2024-12-27 13:30] VITALS: O2SAT 100
[2024-12-27 13:41] VITALS: BP 185/72; TEMP 99.1
[2024-12-27] MEDS ORDERED: traMADol 50 MG TAB PO PRN (13:50)
[2024-12-27] MEDS ORDERED: RIVAROXABAN 10MG TAB PO SCH (18:00)
[2024-12-27] MEDS ORDERED: INSULIN LISPRO (NovoLOG) PER UNIT SC SCH (21:00)
== END 2024-12-27 15:50 | disposition left against medical advice (07) | DRG 420 ==
LOC: M ED 19:55 → M ED INP 22:23
PROVIDERS: ADMIT Student in an Organized Health Care Education/Training Program; ATTEND Internal Medicine
DX: E10.10 Type 1 diabetes mellitus with ketoacidosis without coma (principal); K31.84 Gastroparesis; E87.5 Hyperkalemia; E10.43 Type 1 diabetes mellitus with diabetic autonomic (poly)neuropathy; E10.22 Type 1 diabetes mellitus with diabetic chronic kidney disease; N18.30 Chronic kidney disease, stage 3 unspecified; F12.188 Cannabis abuse with other cannabis-induced disorder; R11.2 Nausea with vomiting, unspecified; E10.65 Type 1 diabetes mellitus with hyperglycemia; T38.3X6A Underdosing of insulin and oral hypoglycemic [antidiabetic] drugs, initial encounter; Z91.148 Patient's other noncompliance with medication regimen for other reason; Z87.891 Personal history of nicotine dependence; Z79.4 Long term (current) use of insulin; Z79.899 Other long term (current) drug therapy; Z88.8 Allergy status to other drugs, medicaments and biological substances; Z91.018 Allergy to other foods; Z79.891 Long term (current) use of opiate analgesic

== ENCOUNTER 2025-02-23 12:47 | Inpatient (IN) | payer MEDICAID, OTHER, SELFPAY ==
[~2025-02-23] VITALS: Ht 170.2 cm; Wt 64.2 kg
[2025-02-23] MEDS: NS (Normal Saline) 0.9% 1,000 ML IV ONE (13:00)
[2025-02-23] MEDS: MORPHINE 4 MG/ML 1 ML VIAL IV ONE ×2 (13:00→14:45)
[2025-02-23] MEDS ORDERED: TRAM1TAB42 PO (13:46)
[2025-02-23] MEDS ORDERED: HOME MED LIST COMPLETE! XX SCH (13:50)
[2025-02-23 14:08] LABS: BASO # 0.0 10^3/uL (0.0-0.2); BASO % 0.6 % (0.0-1.0); EOS # 0.0 10^3/uL (0.0-0.5); EOS % 0.4 % (0.0-3.0); LYMPH # 1.4 10^3/uL (1.5-5.0); LYMPH % 19.3 % (24.0-44.0); MONO # 0.3 10^3/uL (0.0-0.8); MONO % 3.8 % (2.0-8.0); NEUTROPHILS # 5.4 10^3/uL (1.5-8.5); NEUTROPHILS % 75.5 % (36.0-66.0); PLATELET COUNT, AUTOMATED 253 10^3/uL (150-450)
[2025-02-23 14:47] LABS: ALT/SGPT 25 U/L (7.0-40); AST/SGOT 42 U/L (<34); CALCIUM LEVEL 10.1 MG/DL (8.5-10.1); CARBON DIOXIDE LEVEL 16 MMOL/L (20-31); CHLORIDE LEVEL 105 MMOL/L (98-107); CREATININE FOR GFR 1.36 MG/DL (0.55-1.30); GLOMERULAR FILTRATION RATE 46.9 (>51); POTASSIUM SERUM 5.9 MMOL/L (3.5-5.1); SODIUM LEVEL 136 MMOL/L (136-145)
[2025-02-23 14:55] LABS: HCG, SERUM QUALITATIVE NEGATIVE (NEGATIVE)
[2025-02-23] MEDS ORDERED: ISOVUE-370 76% 100 ML VIAL As Ordered ONE (15:42)
[2025-02-23] MEDS: ONDANSETRON 4MG/2ML VIAL IV ONE (16:43)
[2025-02-23 17:18] LABS: ACETONE/KETONE 2.12 MMOL/L (0.02-0.27)
[2025-02-23 17:41] LABS: VENOUS BASE EXCESS -11.7 (-2.0-2.0); VENOUS HCO3 14.1 MMOL/L (23.0-27.0); VENOUS O2 SATURATION 94.2 % (60.0-80.0); VENOUS PARTIAL PRESSURE CO2 31.8 mmHg (38.0-50.0); VENOUS PARTIAL PRESSURE O2 83.1 mmHg (30.0-50.0); VENOUS PH 7.265 UNITS (7.330-7.430); VENOUS STANDARD HCO3 15.2 MMOL/L; VENOUS TOTAL CO2 15.1 MMOL/L (24.0-28.0)
[2025-02-23 18:04] LABS: CALCIUM LEVEL 9.7 MG/DL (8.5-10.1); CARBON DIOXIDE LEVEL 16.0 MMOL/L (20-31); CHLORIDE LEVEL 105.0 MMOL/L (98-107); CREATININE FOR GFR 1.26 MG/DL (0.55-1.30); GLOMERULAR FILTRATION RATE 51.4 (>51); POTASSIUM SERUM 4.7 MMOL/L (3.5-5.1); SODIUM LEVEL 136.0 MMOL/L (136-145)
[2025-02-23] MEDS: HumuLIN R (REGULAR) INSULIN (NovoLIN R) **100 U/ML** PER UNIT IV ONE (18:09)
[2025-02-23] MEDS ORDERED: INSULIN IV RATE CHANGE DOCUMENTATION ML/HR XX SCH (19:10)
[2025-02-23] MEDS: D5W/0.45% SODIUM CHLORIDE 1,000 ML IV SCH (20:19)
[2025-02-23] MEDS: INSULIN REGULAR IN 0.9 % NACL 100 UNIT in IV 1 EA IV SCH (20:21)
[2025-02-23] MEDS: SODIUM BICARBONATE 8.4% INJ 50ML SYRINGE IV STA (21:05)
[2025-02-23 23:01] LABS: CALCIUM LEVEL 9.4 MG/DL (8.5-10.1); CARBON DIOXIDE LEVEL 26.0 MMOL/L (20-31); CHLORIDE LEVEL 106.0 MMOL/L (98-107); CREATININE FOR GFR 1.32 MG/DL (0.55-1.30); GLOMERULAR FILTRATION RATE 48.6 (>51); PHOSPHORUS LEVEL 4.2 MG/DL (2.5-4.9); POTASSIUM SERUM 4.3 MMOL/L (3.5-5.1); SODIUM LEVEL 141.0 MMOL/L (136-145)
[2025-02-23] MEDS: LanTUS (INSULIN GLARGINE INJ) 1 UNITS/0.01 ML SC ONE (23:37)
[2025-02-24] VITALS (10 sets, daily range): BP systolic 127–138; BP diastolic 61–92; TEMP 97.9–98; O2SAT 99–100
[2025-02-24] MEDS ORDERED: GLUCAGON INJ 1 MG VIAL SC PRN (01:45)
[2025-02-24] MEDS ORDERED: GLUCOSE 4 GM CHEW PO PRN (01:45)
[2025-02-24] MEDS: D5W/0.45% SODIUM CHLORIDE 1,000 ML IV SCH (02:07)
[2025-02-24 02:31] LABS: CALCIUM LEVEL 9.1 MG/DL (8.5-10.1); CARBON DIOXIDE LEVEL 22.0 MMOL/L (20-31); CHLORIDE LEVEL 103.0 MMOL/L (98-107); CREATININE FOR GFR 1.25 MG/DL (0.55-1.30); GLOMERULAR FILTRATION RATE 51.9 (>51); PHOSPHORUS LEVEL 4.2 MG/DL (2.5-4.9); POTASSIUM SERUM 4.1 MMOL/L (3.5-5.1); SODIUM LEVEL 136.0 MMOL/L (136-145)
[2025-02-24 07:46] LABS: CALCIUM LEVEL 8.7 MG/DL (8.5-10.1); CARBON DIOXIDE LEVEL 18.0 MMOL/L (20-31); CHLORIDE LEVEL 104.0 MMOL/L (98-107); CREATININE FOR GFR 1.24 MG/DL (0.55-1.30); GLOMERULAR FILTRATION RATE 52.4 (>51); POTASSIUM SERUM 4.7 MMOL/L (3.5-5.1); SODIUM LEVEL 136.0 MMOL/L (136-145)
[2025-02-24] MEDS: PANTOPRAZOLE 40MG VIAL IV SCH (07:53)
[2025-02-24] MEDS: INSULIN LISPRO (NovoLOG) PER UNIT SC SCH (07:53)
[2025-02-24] MEDS: LanTUS (INSULIN GLARGINE INJ) 1 UNITS/0.01 ML SC SCH (10:08)
[2025-02-24] MEDS: MORPHINE 4 MG/ML 1 ML VIAL IV PRN (10:09)
[2025-02-24] MEDS: DEXTROSE 50% 50 ML SYRINGE IV PRN (12:30)
== END 2025-02-24 15:37 | disposition home or self-care (01) | DRG 420 ==
LOC: EDBD 12:47 → M ED 12:47 → M ED INP 19:05 → M ICU 02-24 09:40
PROVIDERS: ADMIT Internal Medicine Pulmonary Disease; ATTEND Internal Medicine Pulmonary Disease
DX: E10.10 Type 1 diabetes mellitus with ketoacidosis without coma (principal); K31.84 Gastroparesis; E10.22 Type 1 diabetes mellitus with diabetic chronic kidney disease; E10.43 Type 1 diabetes mellitus with diabetic autonomic (poly)neuropathy; N18.30 Chronic kidney disease, stage 3 unspecified; D63.1 Anemia in chronic kidney disease; F12.188 Cannabis abuse with other cannabis-induced disorder; G89.29 Other chronic pain; R11.16 Cannabis hyperemesis syndrome; Z79.4 Long term (current) use of insulin; Z79.891 Long term (current) use of opiate analgesic; Z88.8 Allergy status to other drugs, medicaments and biological substances; Z91.018 Allergy to other foods; E10.65 Type 1 diabetes mellitus with hyperglycemia

== ENCOUNTER 2025-03-04 09:44 | Inpatient (IN) | payer OTHER, SELFPAY ==
[~2025-03-04] VITALS: Ht 170.2 cm; Wt 73.3 kg
[2025-03-04 10:28] LABS: VENOUS BASE EXCESS -3.0 (-2.0-2.0); VENOUS HCO3 20.6 MMOL/L (23.0-27.0); VENOUS O2 SATURATION 81.3 % (60.0-80.0); VENOUS PARTIAL PRESSURE CO2 32.1 mmHg (38.0-50.0); VENOUS PARTIAL PRESSURE O2 45.8 mmHg (30.0-50.0); VENOUS PH 7.426 UNITS (7.330-7.430); VENOUS STANDARD HCO3 21.7 MMOL/L; VENOUS TOTAL CO2 21.6 MMOL/L (24.0-28.0)
[2025-03-04] MEDS: PANTOPRAZOLE 40MG VIAL IV ONE ×2 (10:36→16:56)
[2025-03-04] MEDS: KETOROLAC 30 MG/ML 1 ML VIAL IV ONE (10:36)
[2025-03-04] MEDS: NS (Normal Saline) 0.9% 1,000 ML IV ONE ×3 (10:36→14:30)
[2025-03-04] MEDS: ACETAMINOPHEN *IV* 1,000 MG in IV 1 EA IV ONE (10:39)
[2025-03-04 10:41] LABS: BASO # 0.0 10^3/uL (0.0-0.2); BASO % 0.4 % (0.0-1.0); EOS # 0.0 10^3/uL (0.0-0.5); EOS % 0.4 % (0.0-3.0); LYMPH # 1.4 10^3/uL (1.5-5.0); LYMPH % 14.4 % (24.0-44.0); MONO # 0.5 10^3/uL (0.0-0.8); MONO % 5.0 % (2.0-8.0); NEUTROPHILS # 7.6 10^3/uL (1.5-8.5); NEUTROPHILS % 79.6 % (36.0-66.0); PLATELET COUNT, AUTOMATED 286 10^3/uL (150-450)
[2025-03-04 11:10] LABS: ALT/SGPT 23.0 U/L (7.0-40); AST/SGOT 37.0 U/L (<34); CALCIUM LEVEL 10.2 MG/DL (8.5-10.1); CARBON DIOXIDE LEVEL 22.0 MMOL/L (20-31); CHLORIDE LEVEL 103.0 MMOL/L (98-107); CREATININE FOR GFR 1.33 MG/DL (0.55-1.30); GLOMERULAR FILTRATION RATE 48.1 (>51); MAGNESIUM LEVEL 1.4 MG/DL (1.8-2.4); POTASSIUM SERUM 5.1 MMOL/L (3.5-5.1); SODIUM LEVEL 138.0 MMOL/L (136-145)
[2025-03-04 11:17] LABS: AMPHETAMINES LEVEL URINE NEGATIVE (NEGATIVE)
[2025-03-04 11:18] LABS: BARBITURATES URINE NEGATIVE (NEGATIVE); BENZODIAZEPINES URINE NEGATIVE (NEGATIVE); COCAINE METABOLITE URINE NEGATIVE (NEGATIVE); METHADONE URINE NEGATIVE (NEGATIVE); OPIATES URINE NEGATIVE (NEGATIVE); PHENCYCLIDINE URINE NEGATIVE (NEGATIVE)
[2025-03-04 11:19] LABS: CANNABINOIDS URINE POSITIVE (NEGATIVE)
[2025-03-04] MEDS: HALOPERIDOL LACTATE 5 MG/ML VIAL IV ONE (11:37)
[2025-03-04] MEDS: MAG SULF 1GM/100ML (MAG RUN) 1 GM in IV 1 EA IV ONE ×2 (11:50→12:47)
[2025-03-04] MEDS: MORPHINE 4 MG/ML 1 ML VIAL IV ONE ×2 (13:44→18:04)
[2025-03-04] MEDS ORDERED: NALOXONE INJ 0.4 MG/1 ML VIAL IV PRN (14:35)
[2025-03-04] MEDS ORDERED: SENNOSIDES/DOCUSATE SODIUM 8.6 MG/50MG TAB PO PRN (14:35)
[2025-03-04] MEDS ORDERED: GLUCOSE 4 GM CHEW PO PRN (14:35)
[2025-03-04] MEDS ORDERED: GLUCAGON INJ 1 MG VIAL SC PRN (14:35)
[2025-03-04] MEDS ORDERED: MOM 30 ML SUSPENSION UDC PO PRN (14:35)
[2025-03-04] MEDS ORDERED: METO10TA2 PO (15:04)
[2025-03-04] MEDS ORDERED: HOME MED LIST COMPLETE! XX SCH (15:05)
[2025-03-04] MEDS ORDERED: CALCIUM CARBONATE 500 MG CHEW U/D PO PRN (15:40)
[2025-03-04] MEDS: METOPROLOL 5 MG/5 ML VIAL IV SCH (15:50)
[2025-03-04 15:55] LABS: ACETONE/KETONE 1.26 MMOL/L (0.02-0.27)
[2025-03-04] MEDS ORDERED: HYDROMORPHONE HCL 0.5 MG/0.5 ML SYRINGE IV ONE (16:00)
[2025-03-04 16:13] VITALS: BP 165/96; TEMP 97.8; O2SAT 100
[2025-03-04] MEDS: PERCOCET 5MG/325MG TAB PO ONE (16:30)
[2025-03-04] MEDS: NS (Normal Saline) 0.9% 1,000 ML IV SCH (16:30)
[2025-03-04 16:54] VITALS: BP 132/75; TEMP 97.7; O2SAT 99
[2025-03-04 16:59] VITALS: BP 132/75; TEMP 97.7
[2025-03-04] MEDS ORDERED: INSULIN LISPRO (NovoLOG) PER UNIT SC SCH ×2 (17:30→21:00)
[2025-03-04] MEDS: INSULIN LISPRO (NovoLOG) PER UNIT SC SCH ×2 (17:48→17:49)
[2025-03-04] MEDS: SUCRALFATE SUSP 1GM/10ML UD PO SCH (17:49)
[2025-03-04 17:52] VITALS: BP 100/59; TEMP 97.5; O2SAT 98
[2025-03-04] MEDS: hydrALAZINE 20 MG/ML 1 ML VIAL IV SCH (17:53)
[2025-03-04 19:43] VITALS: BP 133/72; TEMP 98.1; O2SAT 97
[2025-03-04] MEDS: LanTUS (INSULIN GLARGINE INJ) 1 UNITS/0.01 ML SC SCH (20:21)
[2025-03-04] MEDS: DEXTROSE 50% 50 ML SYRINGE IV PRN (23:52)
[2025-03-05] VITALS (8 sets, daily range): BP systolic 119–179; BP diastolic 76–89; TEMP 97.5–98.9; O2SAT 97–100
[2025-03-05] MEDS: PERCOCET 5MG/325MG TAB PO SCH (00:14)
[2025-03-05 05:36] LABS: BASO # 0.1 10^3/uL (0.0-0.2); BASO % 0.6 % (0.0-1.0); EOS # 0.1 10^3/uL (0.0-0.5); EOS % 0.8 % (0.0-3.0); LYMPH # 1.5 10^3/uL (1.5-5.0); LYMPH % 19.5 % (24.0-44.0); MONO # 0.7 10^3/uL (0.0-0.8); MONO % 8.6 % (2.0-8.0); NEUTROPHILS # 5.5 10^3/uL (1.5-8.5); NEUTROPHILS % 70.2 % (36.0-66.0); PLATELET COUNT, AUTOMATED 257 10^3/uL (150-450)
[2025-03-05 06:00] LABS: CALCIUM LEVEL 8.4 MG/DL (8.5-10.1); CARBON DIOXIDE LEVEL 20.0 MMOL/L (20-31); CHLORIDE LEVEL 111.0 MMOL/L (98-107); CREATININE FOR GFR 1.19 MG/DL (0.55-1.30); GLOMERULAR FILTRATION RATE 55.0 (>51); POTASSIUM SERUM 4.4 MMOL/L (3.5-5.1); SODIUM LEVEL 141.0 MMOL/L (136-145)
[2025-03-05] MEDS: PANTOPRAZOLE 40MG VIAL IV SCH (09:04)
[2025-03-05] MEDS: LanTUS (INSULIN GLARGINE INJ) 1 UNITS/0.01 ML SC SCH (09:05)
[2025-03-05] MEDS: METOPROLOL 5 MG/5 ML VIAL IV SCH (12:00)
[2025-03-05] MEDS: NS 0.45% 1,000 ML IV SCH (12:07)
[2025-03-06 03:33] VITALS: BP 167/82; TEMP 98.9; O2SAT 98
[2025-03-06] MEDS: MORPHINE 4 MG/ML 1 ML VIAL IV PRN (03:41)
[2025-03-06 04:30] VITALS: BP 156/87
[2025-03-06 06:15] LABS: BASO # 0.1 10^3/uL (0.0-0.2); BASO % 0.9 % (0.0-1.0); EOS # 0.1 10^3/uL (0.0-0.5); EOS % 0.9 % (0.0-3.0); LYMPH # 1.1 10^3/uL (1.5-5.0); LYMPH % 16.6 % (24.0-44.0); MONO # 0.5 10^3/uL (0.0-0.8); MONO % 7.1 % (2.0-8.0); NEUTROPHILS # 5.0 10^3/uL (1.5-8.5); NEUTROPHILS % 74.2 % (36.0-66.0); PLATELET COUNT, AUTOMATED 260 10^3/uL (150-450)
[2025-03-06 06:45] LABS: CALCIUM LEVEL 8.6 MG/DL (8.5-10.1); CARBON DIOXIDE LEVEL 17.0 MMOL/L (20-31); CHLORIDE LEVEL 103.0 MMOL/L (98-107); CREATININE FOR GFR 1.23 MG/DL (0.55-1.30); GLOMERULAR FILTRATION RATE 52.9 (>51); MAGNESIUM LEVEL 1.4 MG/DL (1.8-2.4); POTASSIUM SERUM 4.4 MMOL/L (3.5-5.1); SODIUM LEVEL 134.0 MMOL/L (136-145)
[2025-03-06 07:11] VITALS: BP_SYST 126; BP_SYST 132; BP_DIAS 62; BP_DIAS 82; TEMP 97; TEMP 98.3; O2SAT 100; O2SAT 99
[2025-03-06] MEDS: MAG SULF 1GM/100ML (MAG RUN) 1 GM in IV 1 EA IV SCH (08:21)
[2025-03-06] MEDS: CALCIUM CARBONATE 500 MG CHEW U/D PO ONE (09:00)
[2025-03-06] MEDS: SUCRALFATE SUSP 1GM/10ML UD PO ONE (09:00)
[2025-03-06] MEDS: HYDROMORPHONE HCL 0.5 MG/0.5 ML SYRINGE IV ONE (10:09)
[2025-03-06 11:49] VITALS: BP 134/87; TEMP 98.2; O2SAT 100
[2025-03-06] MEDS ORDERED: SUCRALFATE SUSP 1GM/10ML UD PO SCH (12:00)
[2025-03-06] MEDS ORDERED: CALCIUM CARBONATE 500 MG CHEW U/D PO SCH (12:30)
== END 2025-03-06 12:15 | disposition left against medical advice (07) | DRG 249 ==
LOC: M ED 09:44 → M ED INP 09:45 → OBSVTOIN 15:21 → M PCU 16:00
PROVIDERS: ADMIT General Practice; ATTEND General Practice
DX: R11.16 Cannabis hyperemesis syndrome (principal); E10.22 Type 1 diabetes mellitus with diabetic chronic kidney disease; K76.0 Fatty (change of) liver, not elsewhere classified; E10.43 Type 1 diabetes mellitus with diabetic autonomic (poly)neuropathy; I48.0 Paroxysmal atrial fibrillation; K31.84 Gastroparesis; N18.30 Chronic kidney disease, stage 3 unspecified; D63.8 Anemia in other chronic diseases classified elsewhere; K21.9 Gastro-esophageal reflux disease without esophagitis; K44.9 Diaphragmatic hernia without obstruction or gangrene; E73.9 Lactose intolerance, unspecified; E61.1 Iron deficiency; I16.0 Hypertensive urgency; I12.9 Hypertensive chronic kidney disease with stage 1 through stage 4 chronic kidney disease, or unspecified chronic kidney disease; Z79.4 Long term (current) use of insulin; Z79.899 Other long term (current) drug therapy; Z88.8 Allergy status to other drugs, medicaments and biological substances; Z91.018 Allergy to other foods

== ENCOUNTER 2025-03-12 17:31 | Emergency (ER) | payer OTHER ==
[~2025-03-12] VITALS: Ht 170.2 cm; Wt 63.6 kg
[2025-03-12] MEDS: HALOPERIDOL LACTATE 5 MG/ML VIAL IV ONE (18:06)
[2025-03-12] MEDS: diphenhydrAMINE 50 MG/ML VIAL IV ONE (18:07)
[2025-03-12] MEDS: NS (Normal Saline) 0.9% 1,000 ML IV ONE (18:07)
[2025-03-12 18:13] LABS: VENOUS BASE EXCESS -3.1 (-2.0-2.0); VENOUS HCO3 20.5 MMOL/L (23.0-27.0); VENOUS O2 SATURATION 74.3 % (60.0-80.0); VENOUS PARTIAL PRESSURE CO2 32.1 mmHg (38.0-50.0); VENOUS PARTIAL PRESSURE O2 40.5 mmHg (30.0-50.0); VENOUS PH 7.424 UNITS (7.330-7.430); VENOUS STANDARD HCO3 21.4 MMOL/L; VENOUS TOTAL CO2 21.5 MMOL/L (24.0-28.0)
[2025-03-12 18:19] LABS: BASO # 0.1 10^3/uL (0.0-0.2); BASO % 0.7 % (0.0-1.0); EOS # 0.1 10^3/uL (0.0-0.5); EOS % 0.8 % (0.0-3.0); LYMPH # 1.7 10^3/uL (1.5-5.0); LYMPH % 15.5 % (24.0-44.0); MONO # 0.5 10^3/uL (0.0-0.8); MONO % 4.2 % (2.0-8.0); NEUTROPHILS # 8.4 10^3/uL (1.5-8.5); NEUTROPHILS % 78.4 % (36.0-66.0); PLATELET COUNT, AUTOMATED 345 10^3/uL (150-450)
[2025-03-12 18:42] LABS: ACETONE/KETONE 2.0 MMOL/L (0.02-0.27)
[2025-03-12 18:47] LABS: ALT/SGPT 21.0 U/L (7.0-40); AST/SGOT 24.0 U/L (<34); CALCIUM LEVEL 9.9 MG/DL (8.5-10.1); CARBON DIOXIDE LEVEL 22.0 MMOL/L (20-31); CHLORIDE LEVEL 101.0 MMOL/L (98-107); CREATININE FOR GFR 1.28 MG/DL (0.55-1.30); GLOMERULAR FILTRATION RATE 50.4 (>51); POTASSIUM SERUM 4.3 MMOL/L (3.5-5.1); SODIUM LEVEL 135.0 MMOL/L (136-145)
[2025-03-12] MEDS: HumuLIN R (REGULAR) INSULIN (NovoLIN R) **100 U/ML** PER UNIT IV ONE (21:14)
[2025-03-12 22:45] VITALS: BP 123/80; TEMP 98.2
[2025-03-12 22:47] VITALS: O2SAT 98
[2025-03-12] MEDS: ULTRACET TAB PO STA (22:47)
== END 2025-03-12 22:57 | disposition home or self-care (01) ==
LOC: M ED 17:31 → EDBD 17:31 → M ED 22:57
DX: E10.65 Type 1 diabetes mellitus with hyperglycemia (principal); R11.2 Nausea with vomiting, unspecified; I25.2 Old myocardial infarction; I48.91 Unspecified atrial fibrillation; N18.30 Chronic kidney disease, stage 3 unspecified; K21.9 Gastro-esophageal reflux disease without esophagitis; F12.10 Cannabis abuse, uncomplicated; Z87.891 Personal history of nicotine dependence; Z88.8 Allergy status to other drugs, medicaments and biological substances; Z91.014 Allergy to mammalian meats; Z79.4 Long term (current) use of insulin; Z79.899 Other long term (current) drug therapy
CPT/HCPCS: 80048; 80076; 82010; 82803; 83690; 85025; 93005; 93041; 94760; 96361; 96374; 96375; 99285; J1200; J1630; J1815; J2060

== ENCOUNTER 2025-03-17 16:56 | Emergency (ER) | payer OTHER ==
[~2025-03-17] VITALS: Ht 170.2 cm; Wt 64.4 kg
[2025-03-17 18:08] LABS: VENOUS BASE EXCESS -4.5 (-2.0-2.0); VENOUS HCO3 20.3 MMOL/L (23.0-27.0); VENOUS O2 SATURATION 83.4 % (60.0-80.0); VENOUS PARTIAL PRESSURE CO2 36.1 mmHg (38.0-50.0); VENOUS PARTIAL PRESSURE O2 51.5 mmHg (30.0-50.0); VENOUS PH 7.367 UNITS (7.330-7.430); VENOUS STANDARD HCO3 20.5 MMOL/L; VENOUS TOTAL CO2 21.4 MMOL/L (24.0-28.0)
[2025-03-17 18:44] LABS: CALCIUM LEVEL 9.4 MG/DL (8.5-10.1); CARBON DIOXIDE LEVEL 22.0 MMOL/L (20-31); CHLORIDE LEVEL 99.0 MMOL/L (98-107); CREATININE FOR GFR 1.26 MG/DL (0.55-1.30); GLOMERULAR FILTRATION RATE 51.4 (>51); POTASSIUM SERUM 4.2 MMOL/L (3.5-5.1); SODIUM LEVEL 134.0 MMOL/L (136-145)
[2025-03-17] MEDS: ONDANSETRON 4MG/2ML VIAL IV ONE (20:40)
[2025-03-17] MEDS: METHOCARBAMOL 1,000 MG/10 ML VIAL IV ONE (20:41)
[2025-03-17] MEDS: MORPHINE 4 MG/ML 1 ML VIAL IV PRN (20:41)
[2025-03-17 21:30] VITALS: BP 149/83; O2SAT 100
[2025-03-17 21:34] VITALS: TEMP 97.7
[2025-03-17] MEDS ORDERED: METH-1165 PO (21:40)
== END 2025-03-17 22:11 | disposition home or self-care (01) ==
LOC: M ED 16:56 → EDBD 16:56 → M ED 22:11
DX: S39.92XA Unspecified injury of lower back, initial encounter (principal); Y92.014 Private driveway to single-family (private) house as the place of occurrence of the external cause; Y93.9 Activity, unspecified; Y99.9 Unspecified external cause status; W00.0XXA Fall on same level due to ice and snow, initial encounter; E10.9 Type 1 diabetes mellitus without complications; N18.30 Chronic kidney disease, stage 3 unspecified; F12.10 Cannabis abuse, uncomplicated; Z79.4 Long term (current) use of insulin; Z79.899 Other long term (current) drug therapy; Z88.8 Allergy status to other drugs, medicaments and biological substances; Z91.014 Allergy to mammalian meats
CPT/HCPCS: 72110; 73502; 80048; 82803; 96374; 96375; 99284; J2405; J2800

== ENCOUNTER 2025-03-22 09:17 | Inpatient (IN) | payer OTHER ==
[2025-03-22] VITALS (11 sets, daily range): BP systolic 126–177; BP diastolic 66–96; TEMP 97.5–98.2; O2SAT 98–100
[~2025-03-22] VITALS: Ht 170.2 cm; Wt 61.5 kg
[2025-03-22] MEDS: ENOXAPARIN 30 MG/0.3 ML SYRINGE (J1650 PER 10MG) SC SCH (09:00)
[2025-03-22] MEDS: LanTUS (INSULIN GLARGINE INJ) 1 UNITS/0.01 ML SC SCH (09:00)
[~2025-03-22 09:17] MED LIST changes: +METH-1165 PO
[2025-03-22 09:59] LABS: VENOUS BASE EXCESS -13.2 (-2.0-2.0); VENOUS HCO3 13.0 MMOL/L (23.0-27.0); VENOUS O2 SATURATION 81.2 % (60.0-80.0); VENOUS PARTIAL PRESSURE CO2 31.3 mmHg (38.0-50.0); VENOUS PARTIAL PRESSURE O2 53.3 mmHg (30.0-50.0); VENOUS PH 7.236 UNITS (7.330-7.430); VENOUS STANDARD HCO3 13.9 MMOL/L; VENOUS TOTAL CO2 14.0 MMOL/L (24.0-28.0)
[2025-03-22] MEDS: NS (Normal Saline) 0.9% 1,000 ML IV ONE ×3 (10:01→12:58)
[2025-03-22 10:07] LABS: BASO # 0.0 10^3/uL (0.0-0.2); BASO % 0.5 % (0.0-1.0); EOS # 0.0 10^3/uL (0.0-0.5); EOS % 0.0 % (0.0-3.0); LYMPH # 0.6 10^3/uL (1.5-5.0); LYMPH % 8.1 % (24.0-44.0); MONO # 0.4 10^3/uL (0.0-0.8); MONO % 4.8 % (2.0-8.0); NEUTROPHILS # 6.8 10^3/uL (1.5-8.5); NEUTROPHILS % 86.2 % (36.0-66.0); PLATELET COUNT, AUTOMATED 348 10^3/uL (150-450)
[2025-03-22 10:26] LABS: OSMOLALITY SERUM 305 MOSM/KG (275-295)
[2025-03-22 10:28] LABS: ALT/SGPT 21 U/L (7.0-40); AST/SGOT 19 U/L (<34); CALCIUM LEVEL 9.7 MG/DL (8.5-10.1); CARBON DIOXIDE LEVEL 13 MMOL/L (20-31); CHLORIDE LEVEL 89 MMOL/L (98-107); CREATININE FOR GFR 1.68 MG/DL (0.55-1.30); GLOMERULAR FILTRATION RATE 36.4 (>51); MAGNESIUM LEVEL 1.8 MG/DL (1.8-2.4); POTASSIUM SERUM 4.3 MMOL/L (3.5-5.1); SODIUM LEVEL 126 MMOL/L (136-145)
[2025-03-22] MEDS: MORPHINE 2 MG/ML 1 ML VIAL IV PRN (10:29)
[2025-03-22] MEDS ORDERED: AMOX875T2 PO (10:32)
[2025-03-22] MEDS ORDERED: METH-1165 PO (10:32)
[2025-03-22 10:33] LABS: ACETONE/KETONE > 4.50 MMOL/L (0.02-0.27)
[2025-03-22] MEDS ORDERED: HOME MED LIST COMPLETE! XX SCH (10:40)
[2025-03-22] MEDS ORDERED: INSULIN IV RATE CHANGE DOCUMENTATION ML/HR XX SCH ×2 (10:40→12:30)
[2025-03-22] MEDS: INSULIN REGULAR IN 0.9 % NACL 100 UNIT in IV 1 EA IV SCH ×2 (10:54→13:09)
[2025-03-22 11:00] LABS: ESTIMATED AVERAGE GLUCOSE 226.0 MG/DL (60-110)
[2025-03-22] MEDS: LR 1,000 ML IV SCH (12:40)
[2025-03-22] MEDS: D5W/LR 1,000 ML IV SCH (13:39)
[2025-03-22 14:06] LABS: CALCIUM LEVEL 8.9 MG/DL (8.5-10.1); CARBON DIOXIDE LEVEL 19.0 MMOL/L (20-31); CHLORIDE LEVEL 102.0 MMOL/L (98-107); CREATININE FOR GFR 1.46 MG/DL (0.55-1.30); GLOMERULAR FILTRATION RATE 43.0 (>51); MAGNESIUM LEVEL 1.5 MG/DL (1.8-2.4); PHOSPHORUS LEVEL 2.8 MG/DL (2.5-4.9); POTASSIUM SERUM 4.2 MMOL/L (3.5-5.1); SODIUM LEVEL 136.0 MMOL/L (136-145)
[2025-03-22] MEDS ORDERED: DEXTROSE 50% (25 GM/50 ML) VIAL IV STA (14:10)
[2025-03-22] MEDS: DEXTROSE 50% 50 ML SYRINGE IV STA (14:25)
[2025-03-22] MEDS: PANTOPRAZOLE 40MG VIAL IV SCH (14:58)
[2025-03-22 16:37] LABS: CALCIUM LEVEL 8.2 MG/DL (8.5-10.1); CARBON DIOXIDE LEVEL 20.0 MMOL/L (20-31); CHLORIDE LEVEL 102.0 MMOL/L (98-107); CREATININE FOR GFR 1.34 MG/DL (0.55-1.30); GLOMERULAR FILTRATION RATE 47.7 (>51); POTASSIUM SERUM 3.9 MMOL/L (3.5-5.1); SODIUM LEVEL 134.0 MMOL/L (136-145)
[2025-03-22] MEDS ORDERED: GLUCOSE 4 GM CHEW PO PRN (16:55)
[2025-03-22] MEDS ORDERED: DEXTROSE 50% 50 ML SYRINGE IV PRN (16:55)
[2025-03-22] MEDS ORDERED: GLUCAGON INJ 1 MG VIAL SC PRN (16:55)
[2025-03-22] MEDS ORDERED: LABETALOL 100 MG/20 ML VIAL IV PRN (17:00)
[2025-03-22] MEDS ORDERED: ULTRACET TAB PO PRN (17:00)
[2025-03-22] MEDS ORDERED: ACETAMINOPHEN 500 MG TAB PO PRN (17:15)
[2025-03-22] MEDS ORDERED: HYDROMORPHONE HCL 0.5 MG/0.5 ML SYRINGE IV PRN (17:15)
[2025-03-22] MEDS: MAG SULF 1GM/100ML (MAG RUN) 1 GM in IV 1 EA IV SCH (17:19)
[2025-03-22] MEDS ORDERED: MIRALAX *UNIT DOSE* 17 GM PACKET PO PRN (17:20)
[2025-03-22] MEDS ORDERED: SENNA 8.6 MG TAB PO PRN (17:20)
[2025-03-22] MEDS: INSULIN LISPRO (NovoLOG) PER UNIT SC SCH ×2 (17:30→20:41)
[2025-03-22] MEDS: METOCLOPRAMIDE 10 MG TAB PO SCH (17:38)
[2025-03-22] MEDS: HYDROMORPHONE HCL 0.5 MG/0.5 ML SYRINGE IV PRN (17:39)
[2025-03-22 21:37] LABS: CALCIUM LEVEL 8.8 MG/DL (8.5-10.1); CARBON DIOXIDE LEVEL 19.0 MMOL/L (20-31); CHLORIDE LEVEL 100.0 MMOL/L (98-107); CREATININE FOR GFR 1.31 MG/DL (0.55-1.30); GLOMERULAR FILTRATION RATE 49.0 (>51); POTASSIUM SERUM 4.3 MMOL/L (3.5-5.1); SODIUM LEVEL 133.0 MMOL/L (136-145)
[2025-03-22] MEDS ORDERED: ONDANSETRON 4MG/2ML VIAL IV PRN (23:15)
[2025-03-23] VITALS (12 sets, daily range): BP systolic 124–154; BP diastolic 60–97; TEMP 97.1–98.3; O2SAT 97–100
[2025-03-23 05:09] LABS: CALCIUM LEVEL 8.3 MG/DL (8.5-10.1); CARBON DIOXIDE LEVEL 18.0 MMOL/L (20-31); CHLORIDE LEVEL 101.0 MMOL/L (98-107); CREATININE FOR GFR 1.38 MG/DL (0.55-1.30); GLOMERULAR FILTRATION RATE 46.1 (>51); POTASSIUM SERUM 4.4 MMOL/L (3.5-5.1); SODIUM LEVEL 133.0 MMOL/L (136-145)
[2025-03-23 08:53] LABS: PLATELET COUNT, AUTOMATED 283 10^3/uL (150-450)
[2025-03-23 09:13] LABS: CALCIUM LEVEL 9.3 MG/DL (8.5-10.1); CARBON DIOXIDE LEVEL 19.0 MMOL/L (20-31); CHLORIDE LEVEL 98.0 MMOL/L (98-107); CREATININE FOR GFR 1.34 MG/DL (0.55-1.30); GLOMERULAR FILTRATION RATE 47.7 (>51); POTASSIUM SERUM 4.1 MMOL/L (3.5-5.1); SODIUM LEVEL 131.0 MMOL/L (136-145)
[2025-03-24 04:07] VITALS: BP 146/94; TEMP 98.7; O2SAT 100
[2025-03-24 06:29] LABS: PLATELET COUNT, AUTOMATED 244 10^3/uL (150-450)
[2025-03-24 07:05] LABS: CALCIUM LEVEL 8.7 MG/DL (8.5-10.1); CARBON DIOXIDE LEVEL 25.0 MMOL/L (20-31); CHLORIDE LEVEL 101.0 MMOL/L (98-107); CREATININE FOR GFR 1.19 MG/DL (0.55-1.30); GLOMERULAR FILTRATION RATE 55.0 (>51); POTASSIUM SERUM 3.6 MMOL/L (3.5-5.1); SODIUM LEVEL 135.0 MMOL/L (136-145)
[2025-03-24 07:58] LABS: MAGNESIUM LEVEL 1.4 MG/DL (1.8-2.4); PHOSPHORUS LEVEL 2.4 MG/DL (2.5-4.9)
[2025-03-24 12:00] VITALS: BP 145/90; TEMP 98; O2SAT 99
[2025-03-24] MEDS ORDERED: BLOO-217 MC (12:14)
[2025-03-24] MEDS ORDERED: BLOO-218 MC (12:14)
[2025-03-24] MEDS ORDERED: MAGN250T10 PO (12:40)
[2025-03-24] MEDS ORDERED: MAG SULF 1GM/100ML (MAG RUN) 1 GM in IV 1 EA IV SCH (13:00)
== END 2025-03-24 13:22 | disposition home or self-care (01) | DRG 420 ==
LOC: EDBD 09:17 → M ED 10:53 → M ED INP 12:31 → M ICU 13:25 → M MSPAV 03-23 16:56
PROVIDERS: ADMIT Internal Medicine; ATTEND Student in an Organized Health Care Education/Training Program
DX: E10.10 Type 1 diabetes mellitus with ketoacidosis without coma (principal); I48.0 Paroxysmal atrial fibrillation; E10.22 Type 1 diabetes mellitus with diabetic chronic kidney disease; K76.0 Fatty (change of) liver, not elsewhere classified; K31.84 Gastroparesis; E10.43 Type 1 diabetes mellitus with diabetic autonomic (poly)neuropathy; N18.30 Chronic kidney disease, stage 3 unspecified; R11.16 Cannabis hyperemesis syndrome; D63.1 Anemia in chronic kidney disease; E61.1 Iron deficiency; K21.9 Gastro-esophageal reflux disease without esophagitis; K44.9 Diaphragmatic hernia without obstruction or gangrene; E73.9 Lactose intolerance, unspecified; Z87.891 Personal history of nicotine dependence; Z91.148 Patient's other noncompliance with medication regimen for other reason; T38.3X6A Underdosing of insulin and oral hypoglycemic [antidiabetic] drugs, initial encounter